=== PATIENT | female | born 1985 | race Caucasian/White ===

== ENCOUNTER 2021-09-07 22:44 | Emergency (ER) | payer SELFPAY ==
[2021-09-07] MEDS ORDERED: NA CHLORIDE 0.9% 1,000 ML ONE (23:48)
[2021-09-07] MEDS ORDERED: HYDROMORPHONE HCL 1 MG/ML INJ ONE (23:49)
[2021-09-07] MEDS ORDERED: ONDANSETRON 4 MG/2 ML VIAL ONE (23:49)
[2021-09-08 00:04] LABS: Urine Blood Negative (Negative); Urine Glucose Negative (Negative); Urine Protein Negative (Negative); Urine Specific Gravity >=1.030 (1.005-1.030)
[2021-09-08] MEDS ORDERED: PROMETHAZINE INJ 25 MG/ML AMP ONE (00:16)
[2021-09-08 00:28] LABS: Absolute Lymphocytes (CBC) 3.7 K/uL (0.7-4.9); Hematocrit 33.5 % (36.0-45.0); Lymphocytes % 39.6 % (15.3-44.8); MPV 7.1 fL (7.6-11.3); RBC Red Blood Cell Count 3.93 M/uL (3.86-4.86)
[2021-09-08 00:35] LABS: ALT/SGPT 19 U/L (12-78); AST/SGOT 11 U/L (15-37); Albumin 2.9 g/dL (3.4-5.0); Alkaline Phosphatase 85 U/L (45-117); BUN Blood Urea Nitrogen 17 mg/dL (7-18); Bicarbonate 25 mmol/L (21-32); Bilirubin Total 0.1 mg/dL (0.2-1.0); Glucose Level 104 mg/dL (74-106); Lipase 154 U/L (73-393); Potassium 3.8 mmol/L (3.5-5.1); Protein, Total 6.6 g/dL (6.4-8.2); Sodium Level 141 mmol/L (136-145)
[2021-09-08 00:46] LABS: Bilirubin Direct < 0.1 mg/dL (0-0.2)
[2021-09-08 00:50] LABS: Blood Morphology Comment NOT SEEN (NOT SEEN); Platelet Estimate ADEQ; White Blood Cell Scan OK (OK)
[2021-09-08 00:56] LABS: Urine Bacteria 20-50 /HPF (<20); Urine RBC <5 /HPF (NONE SEEN)
[2021-09-08 00:57] LABS: Urine Mucus 1+ /HPF (NONE SEEN); Urine Yeast FEW (NONE SEEN)
[2021-09-08] MEDS ORDERED: HYDROMORPHONE HCL 1 MG/ML INJ ONE (01:03)
--- NOTE | 2021-09-08 01:38 | EDPHYS ---
Physician Documentation [facility] Name: Hong Pace Age: 36 yrs Sex: Female : 1985 Arrival Date: 09/07/2021 Time: 22:47 Bed 20 Private MD: ED Physician Ashvin Rasheed HPI: 09/07 23:25 This 36 yrs old Female presents to ER via Ambulatory with complaints of Abdominal cp Cramping, Abdominal Pain, Fever. 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 - Social history:: Smoking status: Patient reports the use of cigarette tobacco products, smokes one-half pack cigarettes per day, Patient/guardian denies using alcohol, street drugs. ROS: 23:30 Constitutional: Negative for body aches, chills, fever, poor PO intake. cp 23:30 Eyes: Negative for injury, pain, redness, and discharge. cp 23:30 ENT: Negative for drainage from ear(s), ear pain, sore throat, difficulty swallowing, difficulty handling secretions. 23:30 Cardiovascular: Negative for chest pain, edema, palpitations. 23:30 Respiratory: Negative for cough, shortness of breath, wheezing. 23:30 Abdomen/GI: Positive for abdominal pain, nausea and vomiting, Negative for diarrhea, constipation, hematemesis, black/tarry stool, rectal bleeding. 23:30 Back: Negative for pain at rest, pain with movement. 23:30 Neuro: Negative for altered mental status, headache, weakness. 23:30 All other systems are negative. Exam: 23:35 Constitutional: The patient appears in no acute distress, alert, awake, non-toxic, well cp developed, well nourished, obese, in obvious pain, uncomfortable. 23:35 Head/Face: Normocephalic, atraumatic. cp 23:35 Eyes: Periorbital structures: appear normal, Conjunctiva: normal, no exudate, no injection, Sclera: no appreciated abnormality, Lids and lashes: appear normal, bilaterally. 23:35 ENT: External ear(s): are unremarkable, Nose: is normal, Mouth: Lips: moist, Oral mucosa: moist, Posterior pharynx: is normal, airway is patent, no erythema, no exudate. 23:35 Chest/axilla: Inspection: normal, Palpation: is normal, no crepitus, no tenderness. 23:35 Cardiovascular: Rate: tachycardic, Rhythm: regular, Edema: is not appreciated, JVD: is not appreciated. 23:35 Respiratory: the patient does not display signs of respiratory distress, Respirations: normal, no use of accessory muscles, no retractions, labored breathing, is not present, Breath sounds: are clear throughout, no decreased breath sounds, no stridor, no wheezing. 23:35 Abdomen/GI: Inspection: abdomen appears normal, Bowel sounds: active, all quadrants, Palpation: soft, in all quadrants, severe abdominal tenderness, in the anterior aspect of left lateral abdomen, left upper quadrant and left lower quadrant, rebound tenderness, is not appreciated, voluntary guarding, is elicited in the anterior aspect of left lateral abdomen, left upper quadrant and left lower quadrant. 23:35 Back: CVA tenderness, is absent. 23:35 Neuro: Orientation: to person, place \T\ time. Mentation: is normal, Motor: moves all fours, strength is normal. Vital Signs: 22:52 BP 130 / 91; Pulse 125; Resp 20; Temp 98.6(TE); Pulse Ox 98% on R/A; Weight 108.86 kg; ld1 Height 5 ft. 4 in. (162.56 cm); Pain 04/09; 09/08 01:30 BP 104 / 52; Pulse 89; Resp 20; Pulse Ox 100% ; vc1 01:50 BP 102 / 50; Pulse 87; Resp 18; Pulse Ox 99% on R/A; vc1 09/07 22:52 Body Mass Index 41.20 (108.86 kg, 162.56 cm) ld1 MDM: 09/07 23:07 Patient medically screened. cp 23:30 Differential diagnosis: bowel obstruction, non-specific abd pain, Ovarian Torsion, cp Pyelonephritis, Ureterolithiasis, urinary tract infection. 09/08 01:35 Data reviewed: vital signs, nurses notes, lab test result(s), radiologic studies, CT cp scan. 01:35 Counseling: I had a detailed discussion with the patient and/or guardian regarding: the cp historical points, exam findings, and any diagnostic results supporting the discharge/admit diagnosis, lab results, radiology results, to return to the emergency department if symptoms worsen or persist or if there are any questions or concerns that arise at home. Response to treatment: the patient's symptoms have markedly improved after treatment, and as a result, I will discharge patient. Special discussion: Based on the patient's Hx, exam, and Dx evaluation, there is no indication for emergent surgery or inpatient Tx. It is understood by the patient/guardian that if the Sx's persist or worsen they need to return immediately for re-evaluation. 09/07 23:17 Order name: Basic Metabolic Panel; Complete Time: 00:59 cp 09/08 01:00 Interpretation: Normal except: CL 110; CA 8.4. cp 09/07 23:17 Order name: CBC with Diff; Complete Time: 00:59 cp 09/08 01:00 Interpretation: Normal except: HGB 11.6; HCT 33.5; MPV 7.1. cp 09/07 23:17 Order name: Hepatic Function; Complete Time: 00:59 cp 09/07 23:17 Order name: Lipase; Complete Time: 00:59 cp 09/07 23:17 Order name: Urine Microscopic Only; Complete Time: 00:59 cp 09/08 01:00 Interpretation: Normal except: UWBC 5-10; UBACT 20-50; SQEPI 10-20. cp 09/08 00:05 Order name: Urine Dipstick-Ancillary; Complete Time: 00:40 EDMS 09/07 23:29 Order name: CT Stone Protocol; Complete Time: 17:17 cp 09/08 00:30 Order name: CBC Smear Scan; Complete Time: 00:59 EDMS 09/08 00:59 Order name: Urine Culture EDCO 09/07 23:17 Order name: IV Saline Lock; Complete Time: 00:23 cp 09/07 23:17 Order name: Labs collected and sent; Complete Time: 00:23 cp 03/10 23:17 Order name: Urine Dipstick-Ancillary (obtain specimen); Complete Time: 00:23 cp 09/07 23:17 Order name: Urine Test (obtain specimen); Complete Time: 00: cp 09/08 01:08 Order name: PO challenge; Complete Time: 01:21 cp Administered Medications: 00:07 Drug: Dilaudid (HYDROmorphone) 1 mg Route: IVP; Site: right antecubital; vc1 00:22 Follow up: Response: No adverse reaction; Pain is unchanged, physician notified; RASS: vc1 Alert and Calm (0) 00:07 Drug: Zofran (Ondansetron) 4 mg Route: IVP; Site: right antecubital; vc1 00:22 Follow up: Response: No adverse reaction; Nausea unchanged vc1 00:22 Drug: NS 0.9% 1000 ml Route: IV; Rate: 1 bolus; Site: right antecubital; vc1 02:00 Follow up: IV Status: Completed infusion; IV infiltrated; IV Intake: 700ml vc1 00:22 Drug: Phenergan (promethazine) 25 mg Route: IVP; Site: right antecubital; vc1 01:09 Follow up: Response: No adverse reaction; Nausea is decreased vc1 01:09 Drug: Dilaudid (HYDROmorphone) 1 mg Route: IVP; Site: right antecubital; vc1 01:50 Follow up: BP 102 / 50; Pulse 87 bpm; Resp 18 bpm; Pulse Ox 99% RA; Response: No vc1 adverse reaction; Marked relief of symptoms; Pain is decreased; RASS: Alert and Calm (0) Disposition Summary: 09/08/21 01:37 Discharge Ordered Location: Home cp Problem: new cp Symptoms: have improved cp Condition: Stable cp Diagnosis - Abdominal pain, unspecified cp Followup: cp - With: Private Physician - When: 2 - 3 days - Reason: Recheck today's complaints Discharge Instructions: - Discharge Summary Sheet cp - Abdominal Pain, Adult cp - Nausea and Vomiting, Adult cp Forms: - Medication Reconciliation Form cp - Thank You Letter cp - Antibiotic Education cp - Prescription Opioid Use cp Prescriptions: - promethazine 25 mg Oral Tablet - take 1 tablet by ORAL route every 6 hours As needed; 20 tablet; Refills: 0, cp Product Selection Permitted - dicyclomine 20 mg Oral Tablet - take 1 tablet by ORAL route 4 times per day; 30 tablet; Refills: 0, Product cp Selection Permitted Addendum: 09/10/2021 19:13 Co-signature as Attending Physician, Ashvin Rasheed MD. [facility] Signatures: Dispatcher [employer] EDCO Cole Abbott PA PA cp Holmes, Maurice, MD MD [id number] Olga Jordan RN RN ld1 Alejandra Soler RN RN vc1 Gracy Limon PA PA sb3
--- NOTE | 2021-09-08 01:38 | ER ---
Nurse's Notes [facility] Name: Hong Pace Age: 36 yrs Sex: Female : 1985 Arrival Date: 09/07/2021 Time: 22:47 Bed 20 Private MD: Diagnosis: Abdominal pain, unspecified Presentation: 09/07 23:00 Chief complaint: Patient states: "I woke up from a nap with my stomach hurting really vc1 bad and I started vomiting.". Coronavirus screen: Vaccine status: Patient reports receiving the 2nd dose of the covid vaccine. Moderna. Ebola Screen: No symptoms or risks identified at this time. Initial Sepsis Screen: Does the patient meet any 2 criteria? HR > 90 bpm. No. Patient's initial sepsis screen is negative. Does the patient have a suspected source of infection? Yes: Acute abdominal pain. Risk Assessment: Do you want to hurt yourself or someone else? Patient reports no desire to harm self or others. Onset of symptoms was September 07, 2021. 23:00 Method Of Arrival: Ambulatory vc1 23:00 Acuity: [place] 3 vc1 Triage Assessment: 22:52 General: Appears in no apparent distress. uncomfortable, Behavior is cooperative, ld1 appropriate for age, anxious. Pain: Complains of pain in right lower quadrant and left lower quadrant Pain does not radiate. Pain currently is 10 out of 10 on a pain scale. Quality of pain is described as throbbing. Neuro: Level of Consciousness is awake, alert, obeys commands, Oriented to person, place, time, situation, Appropriate for age. Respiratory: Airway is patent Respiratory effort is even, unlabored. GI: Abdomen is round non-distended, Reports lower abdominal pain, nausea, vomiting. 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 - Social history:: Smoking status: Patient reports the use of cigarette tobacco products, smokes one-half pack cigarettes per day, Patient/guardian denies using alcohol, street drugs. Screenin:00 Abuse screen: Denies threats or abuse. Nutritional screening: No deficits noted. vc1 Tuberculosis screening: No symptoms or risk factors identified. Fall Risk None identified. Assessment: 23:30 General: Appears in no apparent distress. uncomfortable, ill, Behavior is calm, vc1 cooperative, appropriate for age. Pain: Complains of pain in abdomen Pain does not radiate. Pain currently is 8 out of 10 on a pain scale. Quality of pain is described as sharp, stabbing, Is continuous, Alleviated by medications. 23:30 Neuro: Level of Consciousness is awake, alert, obeys commands, Oriented to person, vc1 place, time, situation, Appropriate for age. Cardiovascular: Patient's skin is warm and dry. Respiratory: Airway is patent Respiratory effort is even, unlabored, Respiratory pattern is regular, symmetrical. GI: Bowel sounds present X 4 quads. Abd is soft Abdomen is tender to palpation. : No signs and/or symptoms were reported regarding the genitourinary system. 09/08 00:30 Reassessment: Patient and/or family updated on plan of care and expected duration. Pain vc1 level reassessed. Patient is alert, oriented x 3, equal unlabored respirations, skin warm/dry/pink. 01:27 Reassessment: No changes from previously documented assessment. Patient and/or family vc1 updated on plan of care and expected duration. Pain level reassessed. Patient is alert, oriented x 3, equal unlabored respirations, skin warm/dry/pink. 01:50 Reassessment: Patient and/or family updated on plan of care and expected duration. Pain vc1 level reassessed. Patient is alert, oriented x 3, equal unlabored respirations, skin warm/dry/pink. Patient states feeling better. Patient states symptoms have improved. Vital Signs: 09/07 22:52 BP 130 / 91; Pulse 125; Resp 20; Temp 98.6(TE); Pulse Ox 98% on R/A; Weight 108.86 kg; ld1 Height 5 ft. 4 in. (162.56 cm); Pain 04/09; 09/08 01:30 BP 104 / 52; Pulse 89; Resp 20; Pulse Ox 100% ; vc1 01:50 BP 102 / 50; Pulse 87; Resp 18; Pulse Ox 99% on R/A; vc1 09/07 22:52 Body Mass Index 41.20 (108.86 kg, 162.56 cm) ld1 ED Course: 09/07 22:47 Patient arrived in ED. [id number] 22:52 Arm band placed on right wrist. ld1 23:00 Bed in low position. Call light in reach. Pulse ox on. NIBP on. vc1 23:03 Cole Abbott PA is PHCP. cp 23:03 Ashvin Rasheed MD is Attending Physician. cp 23:40 Alejandra Soler RN is Primary Nurse. vc1 09/08 00:20 CT Stone Protocol In Process Unspecified. EDMS 00:23 Urine Microscopic Only Sent. vc1 00:23 Basic Metabolic Panel Sent. vc1 00:23 CBC with Diff Sent. vc1 00:23 Hepatic Function Sent. vc1 00:23 Lipase Sent. vc1 01:20 Triage completed. vc1 01:50 No provider procedures requiring assistance completed. IV discontinued, intact, vc1 bleeding controlled, No redness/swelling at site. Pressure dressing applied. Administered Medications: 00:07 Drug: Dilaudid (HYDROmorphone) 1 mg Route: IVP; Site: right antecubital; vc1 00:22 Follow up: Response: No adverse reaction; Pain is unchanged, physician notified; RASS: vc1 Alert and Calm (0) 00:07 Drug: Zofran (Ondansetron) 4 mg Route: IVP; Site: right antecubital; vc1 00:22 Follow up: Response: No adverse reaction; Nausea unchanged vc1 00:22 Drug: NS 0.9% 1000 ml Route: IV; Rate: 1 bolus; Site: right antecubital; vc1 02:00 Follow up: IV Status: Completed infusion; IV infiltrated; IV Intake: 700ml vc1 00:22 Drug: Phenergan (promethazine) 25 mg Route: IVP; Site: right antecubital; vc1 01:09 Follow up: Response: No adverse reaction; Nausea is decreased vc1 01:09 Drug: Dilaudid (HYDROmorphone) 1 mg Route: IVP; Site: right antecubital; vc1 01:50 Follow up: BP 102 / 50; Pulse 87 bpm; Resp 18 bpm; Pulse Ox 99% RA; Response: No vc1 adverse reaction; Marked relief of symptoms; Pain is decreased; RASS: Alert and Calm (0) Intake: 02:00 IV: 700ml; Total: 700ml. vc1 Outcome: 01:37 Discharge ordered by . cp 01:50 Discharged to home ambulatory. vc1 01:50 Condition: good 01:50 Discharge instructions given to patient, Instructed on discharge instructions, follow up and referral plans. medication usage, Demonstrated understanding of instructions, follow-up care, medications, Prescriptions given X 2. 01:51 Patient left the ED. vc1 Signatures: Dispatcher [employer] EDMS Cole Abbott PA PA cp Dibbern, Lauren, RN RN ld1 Keila Cornejo [id number] Alejandra Soler RN RN vc1
[2021-09-08 02:31] VITALS: TEMP 98.6
[2021-09-08 02:32] VITALS: BP 104/52; O2SAT 100
--- NOTE | 2021-09-08 15:10 | RAD REPORT ---
EXAM DESCRIPTION: CT - Stone Protocol - 09/08/2021 6:11 am CLINICAL HISTORY: Left flank pain COMPARISON: None Available. TECHNIQUE: CT of the abdomen and pelvis without IV contrast. Evaluation of the solid organs and vasc ulature is suboptimal due to lack of IV contrast. This exam was performed according to our department al dose-optimization program, which includes automated exposure control, adjustment of the mA and/or kV according to patient size and/or use of iterative reconstruction technique. FINDINGS: Lung Bases: The visualized lung bases are clear. Bones: No destructive bone lesions identified. Abdomen: Liver: The liver has normal size and density. Gallbladder: Prior cholecystectomy. Spleen, Pancreas, and Adrenal Glands: The spleen, pancreas, and adrenal glands are unremarkable. Kidneys: The kidneys have normal size without evidence of hydronephrosis. No obstructing ureteral felipa culi. Punctate bilateral nonobstructing nephrolithiasis. Vasculature: The aorta and IVC have normal caliber and position. Stomach: The stomach and duodenum have normal course. Other: No free intraperitoneal air. No free fluid or lymphadenopathy. Small fat-containing umbili felipa hernia. Pelvis: Bladder: Urinary bladder is unremarkable. Bowel: No dilated loops of large or small bowel. Appendix: Normal appendix. Pelvis: Prior hysterectomy. IMPRESSION: 1. No acute inflammatory or obstructive process identified. 2. Punctate bilateral nonobstructing nephrolithiasis. Electronically signed by: Eulalio Shelton 09/08/2021 12:44 AM [employer] Due to temporary technical issues with the PACS/Fluency reporting system, reports are being signed by the in house radiologists without review as a courtesy to insure prompt reporting. The interpreting radiologist is fully responsible for the content of the report.
== END 2021-09-08 01:51 | disposition home or self-care (01) ==
LOC: ER 22:44
DX: R10.9 Unspecified abdominal pain (principal); R11.2 Nausea with vomiting, unspecified; F17.210 Nicotine dependence, cigarettes, uncomplicated; Z88.5 Allergy status to narcotic agent; Z88.6 Allergy status to analgesic agent
CPT/HCPCS: 36415; 74176; 76377; 80048; 80076; 81003; 81015; 83690; 85025; 87086; 87088; 96361; 96374; 96375; 99284; J1170; J2405; J2550; J7030

== ENCOUNTER 2021-09-19 23:31 | Emergency (ER) | payer SELFPAY ==
[2021-09-20 00:21] LABS: Urine Blood Negative (Negative); Urine Glucose Negative (Negative); Urine Protein Negative (Negative); Urine Specific Gravity >=1.030 (1.005-1.030); Urine pH 5.5 (5.0-7.0)
[2021-09-20] MEDS ORDERED: ONDANSETRON 4 MG/2 ML VIAL ONE ×2 (00:29→01:06)
[2021-09-20] MEDS ORDERED: MORPHINE 4 MG/ML SYR ONE (00:29)
[2021-09-20] MEDS ORDERED: NA CHLORIDE 0.9% 1,000 ML ONE ×2 (00:29→01:40)
[2021-09-20 00:36] LABS: Absolute Lymphocytes (CBC) 2.8 K/uL (0.7-4.9); Hematocrit 39.4 % (36.0-45.0); Lymphocytes % 34.3 % (15.3-44.8); RBC Red Blood Cell Count 4.52 M/uL (3.86-4.86)
[2021-09-20 00:43] LABS: Calcium Oxalate Crystals- Ur FEW (NONE SEEN); Urine Bacteria >50 /HPF (<20); Urine RBC <5 /HPF (NONE SEEN); Urine Urothelial Cells <5 /HPF (NONE SEEN)
[2021-09-20 00:44] LABS: Albumin 3.3 g/dL (3.4-5.0); Bilirubin Total 0.2 mg/dL (0.2-1.0); Potassium 3.8 mmol/L (3.5-5.1); Protein, Total 7.4 g/dL (6.4-8.2)
[2021-09-20] MEDS ORDERED: HYDROMORPHONE HCL 1 MG/ML INJ ONE (01:06)
[2021-09-20] MEDS ORDERED: PROMETHAZINE INJ 25 MG/ML AMP ONE (01:40)
[2021-09-20] MEDS ORDERED: HYDROMORPHONE HCL 0.5 MG/0.5 ML INJ ONE (01:40)
[2021-09-20] MEDS ORDERED: NA CHLORIDE 0.9% 50 ML ONE (01:41)
--- NOTE | 2021-09-20 02:02 | EDPHYS ---
Physician Documentation [facility] Name: Hong Pace Age: 36 yrs Sex: Female : 1985 Arrival Date: 09/19/2021 Time: 23:34 Bed 18 Private MD: JOAQUIN Physician Cole Disla HPI: 09/20 00:23 This 36 yrs old Female presents to ER via Ambulatory with complaints of wayne Abdominal Pain, Vomiting. 00:23 The patient presents to the emergency department with nausea, vomiting, that is wayne intermittent. Onset: The symptoms/episode began/occurred just prior to arrival. Possible causes: unknown. The symptoms are aggravated by nothing. The symptoms are alleviated by nothing. Associated signs and symptoms: The patient has no apparent associated signs or symptoms, Pertinent positives: abdominal pain. Severity of symptoms: At their worst the symptoms were moderate in the emergency department the symptoms are unchanged. The patient has not experienced similar symptoms in the past. 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 - Social history:: Smoking status: Patient reports the use of cigarette tobacco products, "3 a day". ROS: 09/20 00:24 Constitutional: Negative for fever, chills, and weight loss, Eyes: Negative for injury, wayne pain, redness, and discharge, ENT: Negative for injury, pain, and discharge, Neck: Negative for injury, pain, and swelling, Respiratory: Negative for shortness of breath, cough, wheezing, and pleuritic chest pain, Back: Negative for injury and pain, : Negative for injury, bleeding, discharge, and swelling, MS/Extremity: Negative for injury and deformity, Skin: Negative for injury, rash, and discoloration, Neuro: Negative for headache, weakness, numbness, tingling, and seizure, Psych: Negative for depression, anxiety, suicide ideation, homicidal ideation, and hallucinations, Allergy/Immunology: Negative for hives, rash, and allergies, Endocrine: Negative for neck swelling, polydipsia, polyuria, polyphagia, and marked weight changes, Hematologic/Lymphatic: Negative for swollen nodes, abnormal bleeding, and unusual bruising. Cardiovascular: Positive for palpitations. Abdomen/GI: Positive for abdominal pain, nausea, vomiting, of the left lower quadrant. Exam: 00:24 Constitutional: This is a well developed, well nourished patient who is awake, alert, wayne and in no acute distress. Head/Face: Normocephalic, atraumatic. Eyes: Pupils equal round and reactive to light, extra-ocular motions intact. Lids and lashes normal. Conjunctiva and sclera are non-icteric and not injected. Cornea within normal limits. Periorbital areas with no swelling, redness, or edema. ENT: Nares patent. No nasal discharge, no septal abnormalities noted. Tympanic membranes are normal and external auditory canals are clear. Oropharynx with no redness, swelling, or masses, exudates, or evidence of obstruction, uvula midline. Mucous membranes moist. Neck: Trachea midline, no thyromegaly or masses palpated, and no cervical lymphadenopathy. Supple, full range of motion without nuchal rigidity, or vertebral point tenderness. No Meningismus. Chest/axilla: Normal chest wall appearance and motion. Nontender with no deformity. No lesions are appreciated. Cardiovascular: Regular rate and rhythm with a normal S1 and S2. No gallops, murmurs, or rubs. Normal PMI, no JVD. No pulse deficits. Respiratory: Lungs have equal breath sounds bilaterally, clear to auscultation and percussion. No rales, rhonchi or wheezes noted. No increased work of breathing, no retractions or nasal flaring. Back: No spinal tenderness. No costovertebral tenderness. Full range of motion. Skin: Warm, dry with normal turgor. Normal color with no rashes, no lesions, and no evidence of cellulitis. MS/ Extremity: Pulses equal, no cyanosis. Neurovascular intact. Full, normal range of motion. Neuro: Awake and alert, GCS 15, oriented to person, place, time, and situation. Cranial nerves II-XII grossly intact. Motor strength 5/5 in all extremities. Sensory grossly intact. Cerebellar exam normal. Normal gait. Psych: Awake, alert, with orientation to person, place and time. Behavior, mood, and affect are within normal limits. 00:24 Abdomen/GI: Inspection: distension, that is mild, Bowel sounds: normal, Palpation: mild abdominal tenderness, in the left lower quadrant, Liver: is firm, Hernia: not appreciated. Vital Signs: 09/19 23:39 Pulse 110; Resp 18; Temp 98.0; Pulse Ox 97% on R/A; Weight 108.86 kg; Height 5 ft. 4 tw5 in. (162.56 cm); Pain 10/10; 23:39 Body Mass Index 41.20 (108.86 kg, 162.56 cm) tw5 MDM: 23:42 Patient medically screened. [facility] 09/20 00:26 Differential diagnosis: nephrolithiasis, pyelonephritis, Nonspecific abd pain, wayne pancreatitis, diverticulitis, gastroenteritis. Data reviewed: vital signs, nurses notes, lab test result(s), EKG, radiologic studies, CT scan. Data interpreted: ekg monitor: rate is 110 beats/min, rhythm is regular, Pulse oximetry:. Test interpretation: by ED physician or midlevel provider: ECG, plain radiologic studies. Counseling: I had a detailed discussion with the patient and/or guardian regarding: the historical points, exam findings, and any diagnostic results supporting the discharge/admit diagnosis, lab results, radiology results. 09/19 23:39 Order name: CBC with Diff; Complete Time: 00:56 tw5 09/19 23:39 Order name: CMP; Complete Time: 00:56 tw 09/19 23:39 Order name: Lipase; Complete Time: 00:56 tw5 09/19 23:39 Order name: Urine Microscopic Only; Complete Time: 00:56 tw5 09/20 00:20 Order name: Urine Dipstick-Ancillary; Complete Time: 00:37 EDMA 09/20 00:45 Order name: Urine Culture [facility] 09/20 00:23 Order name: CT Abd/Pelvis - IV Contrast Only [facility] 09/19 23:39 Order name: IV Saline Lock; Complete Time: 00:25 tw5 09/19 23:39 Order name: Labs collected and sent; Complete Time: 00:25 tw 09/19 23:39 Order name: Urine Dipstick-Ancillary (obtain specimen); Complete Time: 00:25 tw5 09/19 23:39 Order name: Urine Test (obtain specimen); Complete Time: 00:26 tw5 Administered Medications: 00:33 Drug: NS 0.9% 1000 ml Route: IV; Rate: 1 bolus; Site: right forearm; kd3 03:01 Follow up: Rate change 1000 ml; IV Status: Completed infusion kd3 00:33 Drug: morphine 4 mg Route: IVP; Site: right forearm; kd3 03:01 Follow up: Response: No adverse reaction kd3 03:01 Follow up: Response: No adverse reaction kd3 00:33 Drug: Zofran (Ondansetron) 4 mg Route: IVP; Site: right forearm; kd3 03:00 Follow up: Response: No adverse reaction kd3 01:07 Drug: Dilaudid (HYDROmorphone) 1 mg Route: IVP; Site: right forearm; ke1 03:00 Follow up: Response: No adverse reaction kd3 01:07 Drug: Zofran (Ondansetron) 4 mg Route: IVP; Site: right forearm; ke1 03:00 Follow up: Response: No adverse reaction kd3 01:49 Drug: NS 0.9% 1000 ml Route: IV; Rate: 1 bolus; Site: right antecubital; kd3 03:00 Follow up: Rate change 1000 ml; IV Status: Completed infusion kd3 01:50 Drug: Dilaudid (HYDROmorphone) 1 mg Route: IVP; Site: right antecubital; kd3 03:00 Follow up: Response: No adverse reaction; Pain is decreased kd3 01:50 Drug: Phenergan (promethazine) 12.5 mg Route: IVP; Site: right antecubital; kd3 03:00 Follow up: Response: No adverse reaction kd3 02:32 Drug: Flomax (tamsulosin) 0.4 mg Route: PO; kd3 02:59 Follow up: Response: No adverse reaction kd3 03:00 Follow up: Response: No adverse reaction kd3 Disposition Summary: 09/20/21 02:01 Discharge Ordered Location: Home wayne Problem: new wayne Symptoms: have improved wayne Condition: Stable wayne Diagnosis - Abdominal pain, unspecified wayne - Abdominal tenderness wayne - UTI/ Urinary tract infection, site not specified wayne - Vomiting wayne Followup: wayne - With: Private Physician - When: 2 - 3 days - Reason: Recheck today's complaints, Continuance of care, Re-evaluation by your physician Discharge Instructions: - Discharge Summary Sheet wayne - Abdominal Pain, Adult wayne - Dysuria wayne - Flank Pain, Adult wayne - Urinary Tract Infection, Adult wayne - Urinary Tract Infection, Adult, [id number] wayne - Abdominal Pain, Adult, [id number] wayne - Vomiting, Adult [facility] Forms: - Medication Reconciliation Form [facility] - Thank You Letter [facility] - Antibiotic Education [facility] - Prescription Opioid Use [facility] Prescriptions: - Zofran 4 mg Oral Tablet - take 1 tablet by ORAL route every 12 hours As needed; 20 tablet; Refills: 0, [facility] Product Selection Permitted - Cipro 500 mg Oral Tablet - take 1 tablet by ORAL route every 12 hours for 7 days; 14 tablet; Refills: 0, [facility] Product Selection Permitted - Tylenol-Codeine #3 300 mg-30 mg Oral - take 2 tablet by ORAL route every 6 hours; 24 tablet; Refills: 0, Product [facility] Selection Permitted - Flomax 0.4 mg Oral capsule - take 1 capsule by ORAL route At bedtime; 20 capsule; Refills: 0, Product jr8 Selection Permitted Signatures: Dispatcher [employer] Cole Juan MD MD cha Wood, Tiffany tw5 Oralia Varma RN RN kd3 Joni Ritchie RN RN ke1 Gracy Limon PA PA sb3
--- NOTE | 2021-09-20 02:02 | ER ---
Nurse's Notes [facility] Name: Hong Pace Age: 36 yrs Sex: Female : 1985 Arrival Date: 09/19/2021 Time: 23:34 Bed 18 Private MD: Diagnosis: Abdominal pain, unspecified;Abdominal tenderness;UTI/ Urinary tract infection, site not specified;Vomiting Presentation: 09/19 23:39 Chief complaint: Patient states: "I was asleep and woke up with this pain its low in my tw5 abdomen and goes into my back and shots. It makes me throw up, makes me sick to my stomach, makes me feel like I am going to pass out.". Coronavirus screen: Vaccine status: Patient reports receiving the 2nd dose of the covid vaccine. Outlisten. Ebola Screen: Patient negative for fever greater than or equal to 101.5 degrees Fahrenheit, and additional compatible Ebola Virus Disease symptoms Patient denies exposure to infectious person. Patient denies travel to an Ebola-affected area in the 21 days before illness onset. Initial Sepsis Screen: Does the patient meet any 2 criteria? HR > 90 bpm. Does the patient have a suspected source of infection? Yes: Acute abdominal pain. Risk Assessment: Do you want to hurt yourself or someone else? Patient reports no desire to harm self or others. Onset of symptoms was September 19, 2021 at 21:30. 23:39 Method Of Arrival: Ambulatory tw5 23:39 Acuity: [place] 3 tw5 Triage Assessment: 23:46 General: Appears uncomfortable, ill, Behavior is cooperative, appropriate for age, tw5 anxious. Pain: Complains of pain in left lower quadrant Pain radiates to low back area Pain currently is 10 out of 10 on a pain scale. 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 - Social history:: Smoking status: Patient reports the use of cigarette tobacco products, "3 a day". Screenin/23 02:56 Abuse screen: Denies threats or abuse. Denies injuries from another. Nutritional kd3 screening: No deficits noted. Tuberculosis screening: No symptoms or risk factors identified. Fall Risk IV access (20 points). Assessment: 09/19 23:39 GI: Pt is actively vomiting bile. tw5 09/20 02:13 Reassessment: Patient and/or family updated on plan of care and expected duration. Pain kd3 level reassessed. Patient is alert, oriented x 3, equal unlabored respirations, skin warm/dry/pink. Patient states feeling better. Patient states symptoms have improved. General: Appears in no apparent distress. Behavior is calm, cooperative, appropriate for age. 02:56 GI: Bowel sounds present X 4 quads. Abd is soft and non tender X 4 quads. kd3 Vital Signs: 09/19 23:39 Pulse 110; Resp 18; Temp 98.0; Pulse Ox 97% on R/A; Weight 108.86 kg; Height 5 ft. 4 tw5 in. (162.56 cm); Pain 10/10; 23:39 Body Mass Index 41.20 (108.86 kg, 162.56 cm) tw5 ED Course: 23:34 Patient arrived in ED. ja2 23:39 Urine collected: clean catch specimen. tw5 23:42 Cole Disla MD is Attending Physician. [facility] 23:46 Triage completed. tw5 23:46 Arm band placed on left wrist. tw5 23:51 Oralia Varma RN is Primary Nurse. kd3 09/20 00:14 Initial lab(s) drawn, by nd, sent to lab. Inserted saline lock: 20 gauge in right tw5 forearm, using aseptic technique. 01:26 CT Abd/Pelvis - IV Contrast Only In Process Unspecified. EDMS 02:56 No provider procedures requiring assistance completed. IV discontinued, intact, kd3 bleeding controlled, No redness/swelling at site. Pressure dressing applied. 02:57 Bed in low position. Side rails up X2. kd3 Administered Medications: 00:33 Drug: NS 0.9% 1000 ml Route: IV; Rate: 1 bolus; Site: right forearm; kd3 03:01 Follow up: Rate change 1000 ml; IV Status: Completed infusion kd3 00:33 Drug: morphine 4 mg Route: IVP; Site: right forearm; kd3 03:01 Follow up: Response: No adverse reaction kd3 03:01 Follow up: Response: No adverse reaction kd3 00:33 Drug: Zofran (Ondansetron) 4 mg Route: IVP; Site: right forearm; kd3 03:00 Follow up: Response: No adverse reaction kd3 01:07 Drug: Dilaudid (HYDROmorphone) 1 mg Route: IVP; Site: right forearm; ke1 03:00 Follow up: Response: No adverse reaction kd3 01:07 Drug: Zofran (Ondansetron) 4 mg Route: IVP; Site: right forearm; ke1 03:00 Follow up: Response: No adverse reaction kd3 01:49 Drug: NS 0.9% 1000 ml Route: IV; Rate: 1 bolus; Site: right antecubital; kd3 03:00 Follow up: Rate change 1000 ml; IV Status: Completed infusion kd3 01:50 Drug: Dilaudid (HYDROmorphone) 1 mg Route: IVP; Site: right antecubital; kd3 03:00 Follow up: Response: No adverse reaction; Pain is decreased kd3 01:50 Drug: Phenergan (promethazine) 12.5 mg Route: IVP; Site: right antecubital; kd3 03:00 Follow up: Response: No adverse reaction kd3 02:32 Drug: Flomax (tamsulosin) 0.4 mg Route: PO; kd3 02:59 Follow up: Response: No adverse reaction kd3 03:00 Follow up: Response: No adverse reaction kd3 Outcome: 02:01 Discharge ordered by MD. black 02:56 Discharged to home ambulatory. kd3 02:56 Condition: stable 02:56 Discharge instructions given to patient, Instructed on discharge instructions, follow up and referral plans. Demonstrated understanding of instructions, follow-up care, Prescriptions given X 1. 02:57 Patient left the ED. tw5 Signatures: Dispatcher [employer] EDMS Cole Disla MD MD cha Alexander, Jessica ja2 Wood, Tiffany tw5 Oraila Varma RN RN kd3 Ebrottie, Kouassi, RN RN ke1
[2021-09-20] MEDS ORDERED: TAMSULOSIN 0.4 MG SR CAP ONE (02:35)
[2021-09-20 03:59] VITALS: TEMP 98; O2SAT 97
--- NOTE | 2021-09-20 12:59 | RAD REPORT ---
EXAM DESCRIPTION: Abdomen Pelvis W Contrast CLINICAL HISTORY: 36 years Female ABD PAIN TECHNIQUE: CT of the abdomen and pelvis using intravenous contrast. All CT scans at this facility us e dose modulation, iterative reconstruction, and/or weight based dosing when appropriate to reduce ra diation dose to as low as reasonably achievable. COMPARISON: 09/08/2021 FINDINGS: Lower chest: Lung bases are clear.Abdomen/Pelvis: Liver: No focal lesion.Gallbladder: Stat us post cholecystectomy.Pancreas: Within normal limits.Spleen: Within normal limits.Kidney: Punctate 1 mm nonobstructing stones in both kidneys. No focal lesion.Adrenal glands: Within normal limits.Vasc ular structures: Unremarkable.Bowel: Postsurgical changes in the stomach. No bowel distention.Appendi x: Not seen.Peritoneum: No free fluid or free air.Lymph Nodes: No lymphadenopathy.Reproductive: Statu s post hysterectomy.Urinary bladder: Unremarkable.Osseous structures: Unchanged sclerosis of the left iliac wing.Soft tissues: Fat-containing small right supraumbilical and periumbilical hernias. IMPRESSION: 1. Punctate 1 mm nonobstructing stones in both kidneys. 2. Additional chronic findings a s described above. Electronically signed by: Ritchie Rodrigues MD 09/20/2021 1:53 AM CDT Due to temporary technical issues with the PACS/Fluency reporting system, reports are being signed by the in house radiologist without review as a courtesy to ensure prompt reporting. The interpreting r adiologist is fully responsible for the content of the report.
== END 2021-09-20 02:57 | disposition home or self-care (01) ==
LOC: ER 23:31
DX: N39.0 Urinary tract infection, site not specified (principal); R11.10 Vomiting, unspecified; F17.210 Nicotine dependence, cigarettes, uncomplicated
CPT/HCPCS: 36415; 74177; 80053; 81003; 81015; 83690; 85025; 87086; 87088; 99284; J1170; J2405; J2550; J7030; Q9967

== ENCOUNTER 2021-11-07 22:23 | Emergency (ER) | payer SELFPAY ==
[2021-11-07] MEDS ORDERED: MORPHINE 4 MG/ML SYR ONE (22:54)
[2021-11-07] MEDS ORDERED: ONDANSETRON 4 MG/2 ML VIAL ONE (22:54)
[2021-11-07 22:59] LABS: Urine Blood Negative (Negative); Urine Glucose Negative (Negative); Urine Protein Trace (Negative); Urine Specific Gravity >=1.030 (1.005-1.030); Urine pH 6.5 (5.0-7.0)
[2021-11-07 23:47] LABS: Absolute Lymphocytes (CBC) 2.1 K/uL (0.7-4.9); Hematocrit 36.1 % (36.0-45.0); Lymphocytes % 30.7 % (15.3-44.8); MPV 7.4 fL (7.6-11.3); RBC Red Blood Cell Count 4.23 M/uL (3.86-4.86)
[2021-11-07 23:56] LABS: Albumin 3.2 g/dL (3.4-5.0); Bilirubin Total 0.1 mg/dL (0.2-1.0); Potassium 3.8 mmol/L (3.5-5.1); Protein, Total 6.8 g/dL (6.4-8.2)
[2021-11-08] MEDS ORDERED: HYDROMORPHONE HCL 0.5 MG/0.5 ML INJ ONE (00:22)
[2021-11-08] MEDS ORDERED: PROMETHAZINE INJ 25 MG/ML AMP ONE (00:22)
[2021-11-08] MEDS ORDERED: MEPERIDINE HCL 50 MG/ML ONE (00:50)
--- NOTE | 2021-11-08 02:01 | EDPHYS ---
Physician Documentation [facility] Name: Hong Pace Age: 36 yrs Sex: Female : 1985 Arrival Date: 11/07/2021 Time: 22:26 Bed 7 Private MD: ED Physician Darwin Haque HPI: 11/07 23:16 This 36 yrs old Female presents to ER via Ambulatory with complaints of Flank Pain. jr8 23:16 The patient complains of pain in the left flank. The pain radiates to the abdomen. jr8 Onset: The symptoms/episode began/occurred acutely, today. Modifying factors: The symptoms are alleviated by nothing. the symptoms are aggravated by movement. Associated signs and symptoms: Pertinent positives: vomiting. Severity of pain: At its worst the pain was moderate in the emergency department the pain is unchanged. It is unknown whether or not the patient has had similar symptoms in the past. The patient has not recently seen a physician. History of renal stones in past. Started with acute pain tonight when laying down trying to get her child to bed. 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 - Social history:: Smoking status: Patient reports the use of cigarette tobacco products, denies chronic smoking, but will smoke occasionally. ROS: 23:16 Eyes: Negative for injury, pain, redness, and discharge, ENT: Negative for injury, jr8 pain, and discharge, Neck: Negative for injury, pain, and swelling, Cardiovascular: Negative for chest pain, palpitations, and edema, Respiratory: Negative for shortness of breath, cough, wheezing, and pleuritic chest pain, MS/Extremity: Negative for injury and deformity, Skin: Negative for injury, rash, and discoloration, Neuro: Negative for headache, weakness, numbness, tingling, and seizure. 23:16 Abdomen/GI: Positive for abdominal pain, nausea and vomiting, Negative for diarrhea. 23:16 Back: Positive for flank pain, on the left. Exam: 23:16 Cardiovascular: Regular rate and rhythm with a normal S1 and S2. No gallops, murmurs, jr8 or rubs. Normal PMI, no JVD. No pulse deficits. Respiratory: Lungs have equal breath sounds bilaterally, clear to auscultation and percussion. No rales, rhonchi or wheezes noted. No increased work of breathing, no retractions or nasal flaring. Skin: Warm, dry with normal turgor. Normal color with no rashes, no lesions, and no evidence of cellulitis. MS/ Extremity: Pulses equal, no cyanosis. Neurovascular intact. Full, normal range of motion. Neuro: Awake and alert, GCS 15, oriented to person, place, time, and situation. Motor strength 5/5 in all extremities. Sensory grossly intact. 23:16 Constitutional: The patient appears alert, awake, in obvious pain. 23:16 Abdomen/GI: Inspection: obese Bowel sounds: active, all quadrants, Palpation: soft, in all quadrants, moderate abdominal tenderness, in the left lower quadrant, mass, is not appreciated, rebound tenderness, is not appreciated, voluntary guarding, is not appreciated, involuntary guarding, is not appreciated, Indicators: McBurney's point is not tender, Pelletier's sign is negative, Rovsing's sign is negative. 23:16 Back: pain, that is mild, of the left flank, ROM is normal, normal spinal alignment noted, CVA tenderness, that is mild, is noted on the left. Vital Signs: 22:43 BP 131 / 101; Pulse 123; Resp 18; Pulse Ox 98% on R/A; Weight 104.33 kg (R); Height 5 lp1 ft. 4 in. (162.56 cm); Pain 10/10; 22:50 BP 137 / 97; Pulse 103; Resp 20; Temp 98.8(O); Pulse Ox 98% on R/A; Pain 10/10; al4 23:00 BP 124 / 91; Pulse 93; Resp 18; Pulse Ox 100% ; Pain 10/10; al4 23:10 BP 131 / 87; Pulse 90; Resp 18 S; Pulse Ox 100% on R/A; al4 0511 00:55 BP 128 / 81; Pulse 88; Resp 16; Pulse Ox 99% ; Pain 8/10; bb 01:21 BP 117 / 81; Pulse 90; Resp 20 S; Pulse Ox 98% on R/A; Pain 6/10; al4 01:35 BP 117 / 95; Pulse 87; Resp 18 S; Pulse Ox 99% on R/A; al4 11/07 22:43 Body Mass Index 39.48 (104.33 kg, 162.56 cm) lp1 MDM: 11/07 22:34 Patient medically screened. 11/08 00:00 Data reviewed: vital signs, nurses notes, lab test result(s), radiologic studies, CT jr8 scan. Data interpreted: Pulse oximetry: on room air is 100 %. Interpretation: normal. Counseling: I had a detailed discussion with the patient and/or guardian regarding: the historical points, exam findings, and any diagnostic results supporting the discharge/admit diagnosis, lab results, radiology results. ED course: Labs stable. No acute intraabdominal findings on CT. This was discussed with patient. Giving another round of pain meds and nausea meds at this time for continued pain . 01:42 Differential diagnosis: nephrolithiasis, pyelonephritis, UTI, diverticulitis, rn pancreatitis, endometriosis. Response to treatment: the patient's symptoms have markedly improved after treatment. 01:43 ED course: Pt suddenly wants to leave, doesn't want to wait for results, has had rn multiple narcotic pain medications, told her she cannot drive herself, needs ride, and we need to see her get into car.. 02:00 ED course: No acute findings on CT. Patient's ride is here, wants to go home. Will dc rn home with return precautions. Feels better. Stable vitals.. 11/07 22:44 Order name: CBC with Diff; Complete Time: 23:59 [facility] 11/07 22:44 Order name: CMP; Complete Time: 23:59 [facility] 11/07 22:48 Order name: CT Stone Protocol [facility] 11/07 22:59 Order name: Urine Dipstick-Ancillary; Complete Time: 23:18 EDMS 11/08 00:19 Order name: CT Abd/Pelvis - IV Contrast Only [facility] 11/07 22:44 Order name: IV Saline Lock; Complete Time: 23:08 8 11/07 22:44 Order name: Labs collected and sent; Complete Time: 23:08 8 11/07 22:44 Order name: Urine Dipstick-Ancillary (obtain specimen); Complete Time: 22:58 8 11/07 22:44 Order name: Urine Test (obtain specimen); Complete Time: 22:58 Administered Medications: 11/07 23:13 Drug: Zofran (Ondansetron) 4 mg Route: IVP; Site: right antecubital; al4 11/08 00:00 Follow up: Response: No adverse reaction; No change in condition al4 11/07 23:15 Drug: morphine 4 mg Route: IVP; Site: right antecubital; al4 11/08 00:00 Follow up: Response: No adverse reaction; No change in condition al4 00:25 Drug: Phenergan (promethazine) 12.5 mg Route: IVP; Site: right antecubital; bb 00:44 Follow up: Response: Nausea is decreased bb 00:26 Drug: Dilaudid (HYDROmorphone) 0.5 mg {Note: RASS 0.} Route: IVP; Site: right bb antecubital; 00:44 Follow up: Response: No adverse reaction; Pain is unchanged, physician notified; RASS: bb Alert and Calm (0) 00:56 Drug: Demerol (meperidine) 50 mg {Note: RASS 0.} Route: IVP; Site: right antecubital; bb 02:03 Follow up: Response: No adverse reaction; Pain is decreased; RASS: Alert and Calm (0) al4 Disposition: 03:51 Co-signature as Attending Physician, Darwin Haque MD. rn Disposition Summary: 11/08/21 02:01 Discharge Ordered Location: Home rn Problem: new rn Symptoms: have improved rn Condition: Stable rn Diagnosis - Abdominal pain, unspecified rn Followup: rn - With: Private Physician - When: As needed - Reason: Recheck today's complaints, Re-evaluation by your physician Discharge Instructions: - Discharge Summary Sheet rn - Abdominal Pain, Adult rn - Pain Without a Known Cause rn Forms: - Medication Reconciliation Form rn - Thank You Letter rn - Antibiotic rn transition - Prescription Opioid Use rn Signatures: Dispatcher [employer] Ofelia Kay RN RN bb Darwin Haque MD MD rn Shepherd, AFRICA Gonzalez RN lp1 Ernesto Evans PA PA jr8 Darian Gonzalez
--- NOTE | 2021-11-08 02:01 | ER ---
Nurse's Notes [facility] Name: Hong Pace Age: 36 yrs Sex: Female : 1985 Arrival Date: 11/07/2021 Time: 22:26 Bed 7 Private MD: Diagnosis: Abdominal pain, unspecified Presentation: 11/07 22:43 Chief complaint: Patient states: Sudden onset LLQ abdominal pain about 1.5 hr ago, lp1 vomiting during triage; Hx of kidney stones. Coronavirus screen: At this time, the client does not indicate any symptoms associated with coronavirus-19. Ebola Screen: No symptoms or risks identified at this time. Initial Sepsis Screen: Does the patient meet any 2 criteria? HR > 90 bpm. Does the patient have a suspected source of infection? No. Patient's initial sepsis screen is negative. Risk Assessment: Do you want to hurt yourself or someone else? Patient reports no desire to harm self or others. Onset of symptoms was November 07, 2021. 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 - Social history:: Smoking status: Patient reports the use of cigarette tobacco products, denies chronic smoking, but will smoke occasionally. Screenin:50 Abuse screen: Denies threats or abuse. Nutritional screening: No deficits noted. al4 Tuberculosis screening: No symptoms or risk factors identified. Fall Risk No fall in past 12 months (0 pts). No IV (0 pts). Ambulatory Aid- None/Bed Rest/Nurse Assist (0 pts). Gait- Normal/Bed Rest/Wheelchair (0 pts) Mental Status- Oriented to own ability (0 pts). Total Puentes Fall Scale indicates No Risk (0-24 pts). Assessment: 22:50 General: Appears uncomfortable, Behavior is calm, cooperative. Pain: Complains of pain al4 in left lower quadrant Pain currently is 10 out of 10 on a pain scale. Noted to be moaning. Neuro: Level of Consciousness is awake, alert, obeys commands, Oriented to person, place, time, situation, Gait is steady. Cardiovascular: Capillary refill < 3 seconds Patient's skin is warm and dry. Respiratory: Airway is patent Respiratory effort is even, unlabored, Respiratory pattern is regular, symmetrical. GI: Abdomen is round Abdomen is tender to palpation in left lower quadrant Reports nausea, vomiting. : No signs and/or symptoms were reported regarding the genitourinary system. EENT: No signs and/or symptoms were reported regarding the EENT system. Derm: Skin is intact, Skin is dry, Skin is normal, Skin temperature is warm. Musculoskeletal: Circulation, motion, and sensation intact. 11/08 00:20 Reassessment: patient c/o pain and nausea. provider notified. al4 01:20 Reassessment: Patient is alert, oriented x 3, equal unlabored respirations, skin al4 warm/dry/pink. Patient states feeling better. 01:30 Reassessment: patient notified ED RN of wanting to be discharged and called with the al4 results tomorrow. RN educated patient that patient could not drive home, and patient understands saying her will come pick her up. 02:01 Reassessment: Patient appears in no apparent distress at this time. Patient is alert, al4 oriented x 3, equal unlabored respirations, skin warm/dry/pink. Patient states feeling better. 02:11 Reassessment: This RN walked patient out to family's car. Lashay, patients Aunt, will al4 be giving patient a ride home. Vital Signs: 11/07 22:43 BP 131 / 101; Pulse 123; Resp 18; Pulse Ox 98% on R/A; Weight 104.33 kg (R); Height 5 lp1 ft. 4 in. (162.56 cm); Pain 10/; 22:50 BP 137 / 97; Pulse 103; Resp 20; Temp 98.8(O); Pulse Ox 98% on R/A; Pain 10; al4 23:00 BP 124 / 91; Pulse 93; Resp 18; Pulse Ox 100% ; Pain 10/10; al4 23:10 BP 131 / 87; Pulse 90; Resp 18 S; Pulse Ox 100% on R/A; al4 11/08 00:55 BP 128 / 81; Pulse 88; Resp 16; Pulse Ox 99% ; Pain 8/10; bb 01:21 BP 117 / 81; Pulse 90; Resp 20 S; Pulse Ox 98% on R/A; Pain 6/10; al4 01:35 BP 117 / 95; Pulse 87; Resp 18 S; Pulse Ox 99% on R/A; al4 11/07 22:43 Body Mass Index 39.48 (104.33 kg, 162.56 cm) lp1 ED Course: 11/07 22:26 Patient arrived in ED. bp1 22:33 Ernesto Evans PA is PHCP. jr8 22:33 Darwin Haque MD is Attending Physician. jr8 22:43 Missed attempt(s): 20 gauge in right antecubital area. lp1 22:44 Triage completed. lp1 22:44 Arm band placed on. lp1 22:50 Patient has correct armband on for positive identification. Bed in low position. Call al4 light in reach. 22:54 Darian Gonzalez is Primary Nurse. al4 23:08 Inserted saline lock: 24 gauge in right upper arm, using aseptic technique. Blood ds4 collected. 23:27 CT Stone Protocol In Process Unspecified. EDMS 11/08 01:23 CT Abd/Pelvis - IV Contrast Only In Process Unspecified. EDMS 02:05 No provider procedures requiring assistance completed. IV discontinued, intact, al4 bleeding controlled, No redness/swelling at site. Pressure dressing applied. Administered Medications: 11/07 23:13 Drug: Zofran (Ondansetron) 4 mg Route: IVP; Site: right antecubital; al4 11/08 00:00 Follow up: Response: No adverse reaction; No change in condition al4 11/07 23:15 Drug: morphine 4 mg Route: IVP; Site: right antecubital; al4 11/08 00:00 Follow up: Response: No adverse reaction; No change in condition al4 00:25 Drug: Phenergan (promethazine) 12.5 mg Route: IVP; Site: right antecubital; bb 00:44 Follow up: Response: Nausea is decreased bb 00:26 Drug: Dilaudid (HYDROmorphone) 0.5 mg {Note: RASS 0.} Route: IVP; Site: right bb antecubital; 00:44 Follow up: Response: No adverse reaction; Pain is unchanged, physician notified; RASS: bb Alert and Calm (0) 00:56 Drug: Demerol (meperidine) 50 mg {Note: RASS 0.} Route: IVP; Site: right antecubital; bb 02:03 Follow up: Response: No adverse reaction; Pain is decreased; RASS: Alert and Calm (0) al4 Outcome: 02:01 Discharge ordered by . rn 02:05 Discharged to home ambulatory, with friend. al4 02:05 Condition: good 02:05 Discharge instructions given to patient, Instructed on discharge instructions, follow up and referral plans. Demonstrated understanding of instructions, follow-up care. 02:11 Patient left the ED. al4 Signatures: Dispatcher [employer] EDOfelia Ying RN RN Darwin Santana MD MD rn Pena, Laura, RN RN lp1 Ernesto Evans PA PA jr8 Gallito Kaminski ds4 Yoselyn Hoffmann Alexis al4 Corrections: (The following items were deleted from the chart) 01:23 00:30 Reassessment: patient c/o pain and nausea. provider notified. al4 al4
[2021-11-08 03:27] VITALS: TEMP 98.8
[2021-11-08 03:34] VITALS: BP 117/95; O2SAT 99
--- NOTE | 2021-11-08 11:55 | RAD REPORT ---
EXAM DESCRIPTION: CT Stone Protocol CLINICAL HISTORY: 36 years Female Flank pain, kidney stone suspected TECHNIQUE: Contiguous axial images obtained through the abdomen and pelvis without IV contrast. Kedar nal and sagittal reformatted images provided. This CT exam was performed according to our departmental dose-optimization program, which includes on e or more of the following dose reduction techniques: automated exposure control, adjustment of the m A and/or kV according to patient size, and/or use of iterative reconstruction technique. COMPARISON: 09/20/2021 FINDINGS: Again seen are punctate nonobstructing intrarenal calculi bilaterally. No ureteral or blad vero calculi. There is no hydronephrosis or perinephric stranding on either side. Prior gastric sleeve surgery. There is no bowel inflammation, obstruction, free intraperitoneal air, or ascites. Suspected prior appendectomy. Prior cholecystectomy without biliary dilatation. The lung bases, unenhanced liver, pancreas, spleen, adrenal glands, urinary bladder, and osseous stru ctures are normal. Small fat-containing umbilical hernia. IMPRESSION: Bilateral nephrolithiasis without urinary obstruction. No acute abdominal or pelvic find ings. Electronically signed by: Janiya Coy MD 11/07/2021 11:55 PM CDT Due to temporary technical issues with the PACS/Fluency reporting system, reports are being signed by the in house radiologist without review as a courtesy to ensure prompt reporting. The interpreting r adiologist is fully responsible for the content of the report.
--- NOTE | 2021-11-08 14:10 | RAD REPORT ---
EXAM DESCRIPTION: Abdomen Pelvis W Contrast 11/08/2021 1:36 AM CDT CLINICAL HISTORY: 36 years, Female, Abdominal pain, acute, nonlocalized COMPARISON: 11/07/2021 TECHNIQUE: Contrast-enhanced images of the abdomen and pelvis were performed utilizing 5 mm slice th ickness at 5 mm interval reconstruction from the lung bases to the ischial tuberosities after the adm inistration IV contrast. In addition multiplanar reformats in the coronal and sagittal plane were obtained and reviewed. This exam was performed according to our departmental dose-optimization protocol, which includes auto mated exposure control, adjustment of the mA and/or kV according to patient size and/or use of iterat melvin reconstruction technique. FINDINGS: The lung bases demonstrate to be clear. The liver demonstrates slight decreased attenuation suggesting mild fatty infiltration. Otherwise the liver, pancreas, spleen and adrenal glands demonstrate to be unremarkable, no focal lesions are note d. Surgical clips within the gallbladder fossa correspond to previous cholecystectomy. There is no bi liary duct dilatation. The kidneys demonstrate normal uptake of contrast media. There is a mid right renal calculus measurin g 2.4 mm on image 40. There is a 1.7 mm left lower pole calculus on image 47. There is no evidence fo r hydronephrosis/or hydroureter. Grossly the unopacified stomach demonstrated presence of gastric bypass sleeve. Otherwise the stomach , small bowel and large bowel demonstrate to be within normal limits. There is no evidence for alan l dilatation/or free air. The appendix was not visualized although no significant inflammatory mojica ges are seen within the right lower quadrant. The urinary bladder demonstrate to be unremarkable. The uterus is absent. There are no adnexal mass es. The aorta demonstrate to be normal. There is no retroperitoneal lymphadenopathy. There is no evidence for ascites or and/or significant abnormal fluid collections. The rest of the soft tissue an d bony structures are within normal limits. IMPRESSION: No acute intra-abdominal process. Bilateral nephrolithiasis. Status post cholecystectomy and hysterectomy. Status post gastric bypass sleeve. Mild fatty infiltration of the liver. Electronically signed by: Basil Mcduffie MD 11/08/2021 1:41 AM CDT Due to temporary technical issues with the PACS/Fluency reporting system, reports are being signed by the in house radiologist without review as a courtesy to ensure prompt reporting. The interpreting r adiologist is fully responsible for the content of the report.
== END 2021-11-08 02:11 | disposition home or self-care (01) ==
LOC: ER 22:23
DX: R10.9 Unspecified abdominal pain (principal); R11.2 Nausea with vomiting, unspecified; F17.210 Nicotine dependence, cigarettes, uncomplicated; Z88.5 Allergy status to narcotic agent; Z88.6 Allergy status to analgesic agent
CPT/HCPCS: 36415; 74176; 74177; 76377; 80053; 81003; 85025; J1170; J2175; J2405; J2550; Q9967

== ENCOUNTER 2021-12-25 23:25 | Emergency (ER) | payer SELFPAY ==
--- OUTSIDE RECORDS SUMMARY | 2021-12-25 23:28 | XMS REPORT | Clinical Summary ---
:1985 Author Organization [facility] 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 Active Problems Problem Noted Date Surgical site infection 10/05/2018 Encounter for other preprocedural examination 09/09/19 Overview: EKG 09/08/2018 NSR NR 68 Obesity 09/08/2018 Overview: Formatting of this note is dif ferent from the original. BMI Readings from Last 2 Encounters: 09/08/18 36.82 kg/m Hypothyroidism 09/08/2018 Malignant melanoma of other part of trunk 09/03/2018 Encounters Date Type Specialty Care Team Description 10/26/2021 Office Visit Dermatology Lisbeth Shannon MD Multiple b enign melanocytic nevi (Primary Dx); Personal histor y of malignant melanoma of skin 10/26/2021 Travel 03/23/2021 Orders Only Dermatology Viktoriya Wright RN Persona l history of malignant melan nu of skin (Primary Dx) after 12/25/2020 Immunizations Name Administration Dates Next Due Influenza (IM) Preservative Free 04/05/2009 Influenza, Unspecified 03/30/2011 Tdap 03/30/2011 Surgical History Surgery Date Site/Laterality Comments APPENDECTOMY 07/01/2006 - 06/30/2007 EXPLORATORY LAPAROTOMY 07/01/2006 - Found the endometriosis 06/30/2007 HYSTERECTOMY 07/01/2014 - Still have right ovary 06/30/2015 THYROID SURGERY 07/01/2010 - completely remov ed 06/30/2011 CHOLECYSTECTOMY 07/01/2015 - 06/30/2016 SHOULDER SURGERY 07/01/1999 - Rotator cuff 06/30/2000 OVARIAN CYST SURGERY 08/29/2018 - Right 09/28/2018 LA EXC SKIN MALIG 0.6-1 CM 09/23/2018 Abdomen/Right Proce dure: EXCISION OF TRUNK,ARM,LEG MALIGNANT LESION OF TRUNK, right epi gastric; Surgeon: Nicolasa Valentine MD; Location: [facility] OR; Service: SURG ON C - MELANOMA Medical History Medical History Date Comments Malignant melanoma of other part of 09/03/2018 trunk Renal stone 2007 multiple over the pa [address] 12 years Uterine leiomyoma 2006 I have had a hystere ctomy Polycystic ovarian syndrome 2006 I still have my right ovary and get cyst often on it. 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 Depressive disorder 2005 Anxiety 2005 Family History Medical History Relation Name Comments -Breast cancer Mother Kathy Odell in 2 006 Relation Name Status Comments Mother Kathy Odell Social History Tobacco Use Types Packs/Day Years Used Date Former Smoker 0.25 10 07/01/2004 - 1 07/11/2016 Smokeless Tobacco: Never Used Alcohol Use Standard Drinks/Week Comments No 0 (1 standard drink = 0.6 oz pure alcoho l) Sex Assigned at Date Recorded Not on file Obstetrics History Last Filed Vital Signs Vital Sign Reading Time Taken Comments Blood Pressure 119/87 10/26/2021 10:16 AM CDT Pulse 92 10/26/2021 10:16 AM CDT Temperature - - Respiratory Rate 16 10/26/2021 10:16 AM CDT Oxygen Saturation 98% 10/26/2021 10:16 AM CDT Inhaled Oxygen Concentration - - Weight - - Height - - Body Mass Index - - Plan of Treatment Date Type Specialty Care Team Description 10/25/2022 Office Visit Dermatology Lisbeth Shannon M D [address] [place], [place] [address] (Wo rk) Health Maintenance Due Date Last Done Comments COVID-19 Vaccination (#1) 1991 Results Not on fileafter 12/25/2020 Advance Directives Code Status Date Activated Date Inactivated Comments Full Code 10/04/2018 8:21 PM 10/08/2018 5:55 PM Full Code 09/23/2018 1:48 PM 09/23/2018 6:55 PM Care Teams Hotel Controller Relationship Specialty Start Date End Date Keila Valentine MD PCP - General Surgical Oncology 08/26/18 [address] [place] [address] Navi Arango FNP PCP - External Primary Family Practice 09/08/18 [address] [place] [address]
--- OUTSIDE RECORDS SUMMARY | 2021-12-25 23:38 | XMS REPORT | Continuity of Care Document ---
:1985 Author Organization [facility] t Address [address] [place] [address] Care Team Providers Name Role Phone [phone] Primary Care Physician Unavailable Yari Arango Attending Clinician Unavailable Mohan KNOWLES Attending Clinician MOHAN Attending Clinician Unavailable WAN Attending Clinician Unavailable Wan BARNARD Attending Clinician LARA Attending Clinician Unavailable Gerald Clements Attending Clinician Unavailable JANIA Attending Clinician Unavailable TAJ COTTON Attending Clinician Unavailable Zoltan Wright RN Attending Clinician RODRICK Attending Clinician Unavailable MR CHIDI Attending Clinician Unavailable Zarina Perez Attending Clinician Unavailable DO СВЕТЛАНА Attending Clinician Unavailable WANDA Attending Clinician Unavailable RIVERA Attending Clinician Unavailable Zoltan WOLFE Attending Clinician Unavailable JAYSHREEYULIANA Attending Clinician Unavailable HAL Attending Clinician Unavailable LUCÍA WILSON DR Attending Clinician Unavailable DARYL Attending Clinician Unavailable LARA Admitting Clinician Unavailable Physician, Primary or Family Admitting Clinician Unavailrenetta DYKES Admitting Clinician Unavailable TAJ COTTON Admitting Clinician Unavailable RODRICK Admitting Clinician Unavailable MR CHIDI Admitting Clinician Unavailable DO СВЕТЛАНА Admitting Clinician Unavailable WANDA Admitting Clinician Unavailable TRMAYA Admitting Clinician Unavailable Zoltan WOLFE Admitting Clinician Unavailable GEOVANIYULIANA Admitting Clinician Unavailable HAL Admitting Clinician Unavailable LUCÍA WILSON DR Admitting Clinician Unavailable DARYL Admitting Clinician Unavailable Irwin THOMPSON Admitting Clinician Unavailable SHABNAM Admitting Clinician Unavailable DR MERLE Admitting Clinician Unavailable Payers Payer Name Policy Type Policy Number Effective Date Expiration Date Abhinav durbin [id number] 1958 00:00:00 [id number] 1958 00:00:00 PHCS GENERIC [id number] 2018 00:00:00 Problems Condition Condition Condition Status Onset Resolution Last Treating Co mments Source Name Details Category Date Date Treatment Clinician Date Chronic Chronic Problem Active [facility] abdominal abdominal 6-10 [facility] pain pain 00:00: Memoria 00 l (LUF/LI V/SA) Drug Drug Problem Active [facility] seeking seeking 6-10 [facility] behavior behavior 00:00: Memori a 00 l (LUF/LI V/SA) Generalize Generalize Problem Active 2019-[address] [facility] d 2-01 [facility] abdominal abdominal 00:00: Harpreet marc pain pain 00 l (LUF/LI V/SA) Abdominal Abdominal Problem Active [facility] pain - pain - 8-27 [facility] cause cause 00:00: Memoria unknown unknown 00 l (LUF/LI V/SA) Abdominal Abdominal Problem Active [facility] pain pain 8-27 [facility] 00:00: Memoria 00 l (LUF/LI V/SA) Kidney Kidney Problem Active [facility] stone stone 8-12 [facility] 00:00: Memoria 00 l (LUF/LI V/SA) Low back Low back Problem Active [facility] pain pain 7-27 [facility] 00:00: Memoria 00 l (LUF/LI V/SA) Unspecifie Unspecifie Problem Active [facility] d fall d fall 7 [facility] 00:00: Memoria 00 l (LUF/LI V/SA) Chronic Chronic Problem Active [facility] abdominal abdominal 6-10 Luke s pain pain 00:00: Memoria 00 l (LUF/LI V/SA) Tension-ty Tension-ty Problem Active [facility] pe pe - [facility] headache headache 00:00: Memori a 00 l (LUF/LI V/SA) Constipati Constipati Problem Active 2018-[address] on on 1-17 [facility] 00:00: Memoria 00 l (LUF/LI V/SA) Cyst of Cyst of Problem Active [facility] right right 6-09 [facility] ovary ovary 00:00: Memoria 00 l (LUF/LI V/SA) Surgical Surgical Disease Active Unive rs site site 4-07 ity of infection infection 00:00: [facility] s MD [facility] Encounter Encounter Disease Active Overview: Univers for other for other 09-08 Formattin i ty of preprocedu preprocedu 00:00: g of this [place] [facility] 00 note examinatimorena examinasandra might be [facility] different n from the Cancer original. Center EKG 09/08/2018 NSRNR [id number] Obesity Obesity Disease Active Overview: Univ ers 3-11 Formattin ity of 00:00: g of this 00 note is MD jim Springer from the n original. Cancer BMI Center Readings from Last 2 Encounter s: 09/08/18 36.82 kg/m2 Hypothyroi Hypothyroi Disease Active U nivers dism dism 3-11 ity of 00:00: [place] 00 MD [facility] Malignant Malignant Disease Active Uni vers melanoma melanoma 3-06 ity of of other of other 00:00: [place] part of part of 00 trunk trunk [facility] Mass of Mass of Problem Active [facility] ovary ovary 3-04 [facility] 00:00: Memoria 00 l (LUF/LI V/SA) Sinusitis Sinusitis Problem Active [facility] 4-11 [facility] 00:00: Memoria 00 l (LUF/LI V/SA) Abdominal Abdominal Problem Active [facility] pain pain 1-31 [facility] 00:00: Memoria 00 l (LUF/LI V/SA) Flank pain Flank pain Problem Active [facility] 5-14 [facility] 00:00: Memoria 00 l (LUF/LI V/SA) Left lower Left lower Problem Active 2014-[address] quadrant quadrant 0-18 [facility] pain pain 00:00: Memoria 00 l (LUF/LI V/SA) Blood in Blood in Problem Active 2014-07 [facility] urine urine 0-18 [facility] 00:00: Memoria 00 l (LUF/LI V/SA) HYDRONEPHR HYDRONEPHR Problem Active [facility] OSIS OSIS [facility] Memoria l (LUF/LI V/SA) HYPERTENSI HYPERTENSI Problem Active [facility] VE CHRONIC VE CHRONIC Olamide kes KIDNEY KIDNEY Memoria DISEASE DISEASE l (LUF/LI V/SA) CALCULUS CALCULUS Problem Active [facility] t OF URETER OF URETER Luke s Memoria l (LUF/LI V/SA) UNSPECIFIE UNSPECIFIE Problem Active [facility] HYPOTHYROI HYPOTHYROI Me moria DISM DISM l (LUF/LI V/SA) 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 Memoria l (LUF/LI V/SA) Pain in Pain in Problem Active [facility] pelvis pelvis [facility] Memoria l (LUF/LI V/SA) Anxiety Anxiety Problem Active [facility] Mem[facility] (LUF/LI V/SA) No known No known Disease Unive rs active active ity of problems problems [facility] [place] [facility] Allergies, Adverse Reactions, Alerts Allergy Allergy Status Severity Reaction(s) Onset Inactive Treating Comm ents Source Name Type Date Date Clinician ketorola DA Active U rash [facility] 2[facility]07 [place] 00:00: d 00 [facility] KETOROLA DRUG Active Low Rash 2020-07 Univers C INGREDI 2- ity of 00:00: [place] 00 [facility] Ketorola Propensi Active Rash 2020-07 Univer s c ty to 2- ity of adverse 00:00: [place] reaction 00 [facility] ketorola DA Active AL 2019-0 [facility] 9-10 [facility] 00:[facility] [place] ketorola DA Active U rash [facility] c 03-24 [place] 00:00: d 00 [facility] ketorola DA Active U [facility] c 9- [place] 00:00: d 00 [facility] [place] Ket[place]ola Drug Active Itching 2010- Univers c Allergy 1-19 ity of 00:00: [place] 00 MD Gian payton [facility] Toradol Adverse Active Info Not Common Reaction Available Spiri t - [facility] Family History Family Member Diagnosis Comments Start Date Stop Date Source Natural mother -Breast cancer [facility] Cance r [place] Social History Social Habit Start Date Stop Date Quantity Comments Source Exposure to 2021-11-19 2021-11-29 Not sure [facility] SARS-CoV-2 (event) 00:00:00 17:39:00 [facility] [place] [facility] Alcohol intake 2018-10-04 2018-10-04 Current University of 00:00:00 00:00:00 non-drinker of [place] MD Lila muñoz alcohol [facility] (finding) Cigarette 2018-09-04 2018-09-04 University of pack-years 00:00:00 00:00:00 [place] MD Bah [facility] Tobacco use and 2018-09-04 2018-09-04 Smokeless Universit y of exposure 00:00:00 00:00:00 tobacco non-user [facility] Cigarettes smoked 2018-09-04 2018-09-04 Univers ity of current (pack per 00:00:00 00:00:00 [place] Zoltan Neely ) - Reported Cancer Ce nter History of tobacco 2004-07-01 2017-05-11 Current smoker Un iversity of use 00:00:00 00:00:00 [place] MD Bah [facility] Sex [birth year] Universit y of 00:00:00 00:00:00 [place] MD Olvin banuelos [facility] Smoking Status Start Date Stop Date Source Never smoker [facility] Ex-smoker 2018-09-04 00:00:00 2018-09-04 00:00:00 Universi ty of [facility] Medications Ordered Filled Start Stop Current Ordering Indication Dosage Frequency Signature Comments Components Source Medication Medication Date Date Medication? Clinician (SIG) Name Name methylPREDN Yes [id number] Take by Univers ISolone 11-29 mouth ity of (MEDROL, 00:00: SEE-INSTRU Jacques as TE,) 4 mg 00 CTIONS. Medica l tablets follow Branch package directions amoxicillin 2021- Yes [id number] 1{tbl} Take 1 Univers -clavulanat 11-29 tablet by it y of e [id number] 00:00: 04:59 mouth 2 [place] mg per 00 :00 (two) Medical tablet times Branch daily for 7 days. codeine-gua 2021- Yes [id number] 5mL Take 5 mL Univers ifenesin 11-29 by mouth ity of 10-100 mg/5 00:00: 04:59 [place] 6 [place] mL oral 00 :00 (six) Medical solution hours as Branch needed for Cough for up to 7 days. Indication s: acute pain estrogens, Yes Take by Uni vers conjugated 08-29 mouth. ity of (PREMARIN 16:19: [place] ORAL) 44 Medical Branch naproxen Yes [id number] 500mg Take 1 U nivers (NAPROSYN) 2-02 tablet by ity of 500 mg 00:00: mouth 2 [place] tablet 00 (two) Medical times Branch daily with meals. albuterol 2020-07 Yes [id number] 2{puff} Inhale 2 Univers 90 2-22 Puffs ity of mcg/actuati 00:00: every 6 [place] as on inhaler 00 (six) Medical hours as Branch needed for Wheezing or Bronchospa sm. codeine-gua 2020-07 Yes 10mL Take 10 mL Univers ifenesin 2-22 by mouth ity of 10-100 mg/5 00:00: every 6 Jacques as mL oral 00 (six) Medical solution hours as Branch needed for Cough. Indication s: cough levothyroxi 2020-07 Yes TAKE 1 Univ ers ne 137 mcg 2-16 TABLET BY ity of tablet 00:00: MOUTH [place] 00 EVERY DAY Medical IN THE Branch MORNING ON AN EMPTY STOMACH acetaminoph acetaminoph Yes [address] [facility] en 325 MG / en 325 MG / 8-26 L ukes hydrocodone hydrocodone 00:00: Memoria bitartrate bitartrate 00 l 5 MG Oral 5 MG Oral (LUF/ LI Tablet Tablet V/SA) acetaminoph acetaminoph Yes [address] [facility] en 325 MG / en 325 MG / 8-26 every 4 to [facility] hydrocodone hydrocodone 00:00: 6 hours as Memoria bitartrate bitartrate 00 needed. l 5 MG Oral 5 MG Oral (as needed (LUF/LI Tablet Tablet for pain) V/SA) Premarin Premarin 2018-07 Yes Kaywin 1 tablet Common 0-23 [facility] 00:00: - [facility] 00 [facility] estrogens, 2018-07 Yes Take by Univ ers conjugated 0-23 mouth ity of (PREMARIN 00:00: daily. [place] ORAL) 00 [facility] Estradiol Estradiol 2018-07 Yes Kaywin 1 tablet Common 0- [facility] 00:00: - [facility] 00 [facility] citalopram Yes Univers (CeleXA) 40 9-10 ity of mg tablet 00:00: [place] [facility] 2010-0 Yes Univer s ne 175 mcg 8-10 ity of cap 00:00: [place] 00 [facility] zolpidem 2006-0 Yes Univers (AMBIEN) 10 1-01 ity of mg tablet 00:00: [place] 00 [facility] acetaminoph acetaminoph Yes [address] [facility] en 300 MG / en 300 MG / L ukes codeine codeine Memoria phosphate phosphate l 30 MG Oral 30 MG Oral (OLAMIDE F/LI Tablet Tablet V/SA) acetaminoph acetaminoph Yes [address] [facility] en 325 MG / en 325 MG / L ukes hydrocodone hydrocodone M emoria bitartrate bitartrate l 5 MG Oral 5 MG Oral (LUF/ LI Tablet Tablet V/SA) cyclobenzap cyclobenzap Yes 10mg [facility] rine 10 mg rine 10 mg Gutierrez es tablet tablet Memoria l (LUF/LI V/SA) estrogens, estrogens, Yes 1.25mg 1xD [facility] conjugated conjugated Gutierrez es (CORRECTION) 1.25 (CORRECTION) 1.25 Mem oria MG Oral MG Oral l Tablet Tablet (LUF/LI V/SA) levothyroxi levothyroxi Yes 150ug 1xD [facility] ne ne [facility] Memoria l (LUF/LI V/SA) acetaminoph acetaminoph Yes [address] [facility] en 300 MG / en 300 MG / every 4 to [facility] codeine codeine 6 hours as Mem oria phosphate phosphate needed. l 30 MG Oral 30 MG Oral (as needed (LUF/LI Tablet Tablet for pain) V/SA) acetaminoph acetaminoph Yes [address] [facility] en 325 MG / en 325 MG / every 6 [facility] hydrocodone hydrocodone hours as Memoria bitartrate bitartrate needed. l 5 MG Oral 5 MG Oral (as needed (LUF/LI Tablet Tablet for pain; V/SA) as needed for pain) cyclobenzap cyclobenzap Yes 10mg orally [facility] rine 10 mg rine 10 mg once daily [facility] tablet tablet at bedtime Memor ia as needed. l (as needed (LUF/LI for muscle V/SA) spasm) estrogens, estrogens, Yes 1.25mg 1xD orally [facility] conjugated conjugated daily Olamide kes (CORRECTION) 1.25 (CORRECTION) 1.25 Mem oria MG Oral MG Oral l Tablet Tablet (LUF/LI V/SA) levothyroxi levothyroxi Yes 150ug 1xD orally [facility] ne ne daily [facility] Memoria l (LUF/LI V/SA) Celexa Celexa Yes Kaywin 1 tablet Commo n Aiden [facility] Levothyroxi Levothyroxi Yes Kaywin 1 tablet Common ne Sodium ne Sodium Aiden on an Sp karla empty - [facility] stomach in [facility] Estradiol Estradiol Yes Kaywin 1 patch to Common Aiden skin [facility] Immunizations Ordered Filled Immunization Date Status Comments [facility] e Immunization Name Name influenza, high influenza, high 2015-04-19 Completed [facility] dose seasonal, dose seasonal, 00:00:00 Memori al preservative-free preservative-free (LUF/DAVID/SA) Influenza, 2011-03-30 Completed University of Unspecified 00:00:00 [place] MD [facility] Tdap 2011-03-30 Completed [facility] 00:00:00 [facility] Influenza (IM) 2009-04-05 Completed University of Preservative Free 00:00:00 [facility] [place] Vital Signs Vital Name Observation Time Observation Value Comments Source Systolic blood 2021-11-29 22:40:00 116 mm[Hg] Univer sity of pressure [facility] [place] [facility] Diastolic blood 2021-11-29 22:40:00 85 mm[Hg] Unive rsity of [facility] Heart rate 2021-11-29 22:40:00 87 /min [facility] Body temperature 2021-11-29 22:40:00 37.28 Ericka [facility] Respiratory rate 2021-11-29 22:40:00 16 /min [facility] Body height 2021-11-29 22:40:00 162.6 cm [facility] Body weight 2021-11-29 22:40:00 103.874 kg [facility] BMI 2021-11-29 22:40:00 39.31 kg/m2 [facility] Oxygen saturation in 2021-11-29 22:40:00 98 /min [facility] blood by [facility] Pulse oximetry Branch Height 2021-04-23 00:58:00 162.56 CM Weight 2021-04-23 00:58:00 105.1 KG Height 2021-03-24 10:53:00 162.56 CM Weight 2021-03-24 10:53:00 105 KG Height 2021-03-10 10:55:00 162.56 CM Weight 2021-03-10 10:55:00 105.2 KG Height 2021-02-23 08:24:00 162.56 CM Weight 2021-02-23 08:24:00 110 KG Weight 2021-01-10 00:53:00 102 KG Weight 2020-12-12 12:39:00 102 KG Weight 2020-12-08 10:27:00 103 KG Height 2020-11-21 07:15:00 162.56 CM Weight 2020-11-21 07:15:00 103.1 KG Weight 2020-11-14 09:47:00 103 KG Height 2020-11-08 08:32:00 162.56 CM Weight 2020-11-08 08:32:00 103.1 KG Height 2020-11-01 00:53:00 165.1 CM Weight 2020-11-01 00:53:00 103 KG Height 2020-10-04 23:47:00 165.1 CM Weight 2020-10-04 23:47:00 102.6 KG Height 2020-09-18 01:40:00 162.56 CM Weight 2020-09-18 01:40:00 102.8 KG Height 2020-09-12 00:50:00 165.1 CM Weight 2020-09-12 00:50:00 104.5 KG Height 2020-08-22 01:35:00 162.56 CM Weight 2020-08-22 01:35:00 102 KG Height 2020-08-06 01:39:00 167.64 CM Weight 2020-08-06 01:39:00 104.2 KG Weight 2020-07-19 07:50:00 100 KG Height 2020-07-05 02:50:00 165.1 CM Weight 2020-07-05 02:50:00 102.1 KG Height 2020-06-07 13:38:00 162.56 CM Weight 2020-06-07 13:38:00 99.79 KG Height 2020-05-31 09:45:00 162.56 CM Weight 2020-05-31 09:45:00 99.79 KG Height 2020-04-25 16:50:00 162.56 CM Weight 2020-04-25 16:50:00 99.79 KG Height 2020-03-20 17:17:00 162.56 CM Weight 2020-03-20 17:17:00 106.9 KG Weight 2020-03-17 00:09:00 105.6 KG Weight 2020-03-16 00:08:00 105.6 KG Weight 2020-03-15 00:00:00 104.2 KG Height 2020-03-13 15:31:00 162.56 CM Weight 2020-03-13 15:31:00 101 KG Height 2020-03-01 10:54:00 162.56 CM Weight 2020-03-01 10:54:00 102 KG Weight 2020-02-26 02:09:00 99.6 KG Height 2020-02-25 10:03:00 162.56 CM Weight 2020-02-25 10:03:00 99.79 KG Height 2020-02-25 00:47:00 162.56 CM Weight 2020-02-25 00:47:00 103.4 KG Height 2020-02-10 02:47:00 167.64 CM Weight 2020-02-10 02:47:00 104 KG Height 2020-01-25 11:32:00 162.56 CM Weight 2020-01-25 11:32:00 100.5 KG Height 2019-11-24 00:49:00 165.1 CM Weight 2019-11-24 00:49:00 103 KG Systolic blood 2021-10-26 15:16:33 119 mm[Hg] Univer sity of pressure [place] [facility] Diastolic blood 2021-10-26 15:16:33 87 mm[Hg] Unive rsity of pressure [place] [facility] Heart rate 2021-10-26 15:16:33 92 /min [facility] Respiratory rate 2021-10-26 15:16:33 16 /min [facility] Oxygen saturation in 2021-10-26 15:16:33 98 /min [facility] Arterial blood by Beny muñoz Pulse oximetry [facility] Body Temperature 2021-04-23 00:58:00 97.8 [degF] [facility] (LUF/DAVID/SA) Pulse Rate 2021-04-23 00:58:00 116 /min [facility] (LUF/DAVID/SA) Respiratory Rate 2021-04-23 00:58:00 18 /min [facility] (LUF/DAVID/SA) O2% BldC Oximetry 2021-04-23 00:58:00 99 % [facility] (LUF/DAVID/SA) BP Systolic 2021-04-23 00:58:00 111 mm[Hg] [facility] (LUF/DAVID/SA) BP Diastolic 2021-04-23 00:58:00 77 mm[Hg] [facility] (LUF/DAVID/SA) Height 2021-04-23 00:58:00 64 [in_i] [facility] (LUF/DAVID/SA) Weight 2021-04-23 00:58:00 105.1 kg [facility] (LUF/ADVID/SA) BMI (Body Mass 2021-04-23 00:58:00 40 kg/m2 [facility] (LUF/DAVID/SA) Body Temperature 2021-03-24 10:53:00 98.6 [degF] [facility] (LUF/DAVID/SA) Pulse Rate 2021-03-24 10:53:00 87 /min [facility] (LUF/DAVID/SA) Respiratory Rate 2021-03-24 10:53:00 18 /min [facility] (LUF/DAVID/SA) O2% BldC Oximetry 2021-03-24 10:53:00 97 % [facility] (LUF/DAVID/SA) BP Systolic 2021-03-24 10:53:00 120 mm[Hg] [facility] (LUF/DAVID/SA) BP Diastolic 2021-03-24 10:53:00 86 mm[Hg] [facility] (LUF/DAVID/SA) Height 2021-03-24 10:53:00 64 [in_i] [facility] (LUF/DAVID/SA) Weight 2021-03-24 10:53:00 105 kg [facility] (LUF/DAVID/SA) BMI (Body Mass 2021-03-24 10:53:00 40 kg/m2 [facility]) [facility] (LUF/DAVID/SA) Body Temperature 2021-03-10 10:55:00 98.4 [degF] [facility] (LUF/DAVID/SA) Pulse Rate 2021-03-10 10:55:00 85 /min [facility] (LUF/DAVID/SA) Respiratory Rate 2021-03-10 10:55:00 20 /min [facility] (LUF/DAVID/SA) O2% BldC Oximetry 2021-03-10 10:55:00 100 % [facility] (LUF/DAVID/SA) BP Systolic 2021-03-10 10:55:00 140 mm[Hg] [facility] (LUF/DAVID/SA) BP Diastolic 2021-03-10 10:55:00 98 mm[Hg] [facility] (LUF/DAVID/SA) Height 2021-03-10 10:55:00 64 [in_i] [facility] (F/DAVID/SA) Weight 2021-03-10 10:55:00 105.2 kg [facility] (LUF/DAVID/SA) BMI (Body Mass 2021-03-10 10:55:00 40 kg/m2 [facility]) [facility] (LUF/DAVID/SA) Pulse Rate 2021-02-23 12:32:00 67 /min [facility] (F/DAVID/SA) O2% BldC Oximetry 2021-02-23 12:32:00 98 % [facility] (LUF/DAVID/SA) BP Systolic 2021-02-23 12:32:00 112 mm[Hg] [facility] (LUF/DAVID/SA) BP Diastolic 2021-02-23 12:32:00 70 mm[Hg] [facility] (LUF/DAVID/SA) Heart Rate 2021-02-23 11:16:00 64 /min [facility] (F/DAVID/SA) Respiratory Rate 2021-02-23 11:16:00 14 /min [facility] (LUF/DAVID/SA) Body Temperature 2021-02-23 08:24:00 98.1 [degF] [facility] (F/DAVID/SA) Height 2021-02-23 08:24:00 64 [in_i] [facility] (LUF/DAVID/SA) Weight 2021-02-23 08:24:00 110 kg [facility] (F/DAVID/SA) BMI (Body Mass 2021-02-23 08:24:00 41.9 kg/m2 [facility]) [facility] (LUF/DAVID/SA) Heart Rate 2021-01-10 01:46:00 93 /min [facility] (LUF/DAVID/SA) Pulse Rate 2021-01-10 01:46:00 95 /min [facility] (LUF/DAVID/SA) Respiratory Rate 2021-01-10 01:46:00 16 /min [facility] (LUF/DAVID/SA) O2% BldC Oximetry 2021-01-10 01:46:00 97 % [facility] (LUF/DAVID/SA) BP Systolic 2021-01-10 01:46:00 103 mm[Hg] [facility] (LUF/DAVID/SA) BP Diastolic 2021-01-10 01:46:00 71 mm[Hg] [facility] (LUF/DAVID/SA) Weight 2021-01-10 00:53:00 102 kg [facility] (LUF/DAVID/SA) Body Temperature 2021-01-10 00:47:00 98.6 [degF] [facility] (LUF/DAVID/SA) Pulse Rate 2020-12-12 14:20:00 87 /min [facility] (LUF/DAVID/SA) O2% BldC Oximetry 2020-12-12 14:20:00 98 % [facility] (LUF/DAVID/SA) BP Systolic 2020-12-12 14:20:00 128 mm[Hg] [facility] (LUF/DAVID/SA) BP Diastolic 2020-12-12 14:20:00 86 mm[Hg] [facility] (LUF/DAVID/SA) Body Temperature 2020-12-12 12:39:00 98.9 [degF] [facility] (F/DAVID/SA) Respiratory Rate 2020-12-12 12:39:00 20 /min [facility] (F/DAVID/SA) Weight 2020-12-12 12:39:00 102 kg [facility] (LUF/DAVID/SA) Body Temperature 2020-12-08 10:27:00 98.6 [degF] [facility] (F/DAVID/SA) Pulse Rate 2020-12-08 10:27:00 79 /min [facility] (LUF/DAVID/SA) Respiratory Rate 2020-12-08 10:27:00 16 /min [facility] (LUF/DAVID/SA) O2% BldC Oximetry 2020-12-08 10:27:00 99 % [facility] (LUF/DAVID/SA) BP Systolic 2020-12-08 10:27:00 111 mm[Hg] [facility] (LUF/DAVID/SA) BP Diastolic 2020-12-08 10:27:00 57 mm[Hg] [facility] (LUF/DAVID/SA) Weight 2020-12-08 10:27:00 103 kg [facility] (LUF/DAVID/SA) Body Temperature 2020-11-25 00:27:00 97.9 [degF] [facility] (LUF/DAVID/SA) Pulse Rate 2020-11-25 00:27:00 82 /min [facility] (LUF/DAVID/SA) Respiratory Rate 2020-11-25 00:27:00 17 /min [facility] (LUF/DAVID/SA) O2% BldC Oximetry 2020-11-25 00:27:00 98 % [facility] (LUF/DAVID/SA) BP Systolic 2020-11-25 00:27:00 109 mm[Hg] [facility] (LUF/DAVID/SA) BP Diastolic 2020-11-25 00:27:00 62 mm[Hg] [facility] (LUF/DAVID/SA) Heart Rate 2020-11-21 09:30:00 75 /min [facility] (LUF/DAVID/SA) Respiratory Rate 2020-11-21 09:30:00 14 /min [facility] (LUF/DAVID/SA) BP Systolic 2020-11-21 09:30:00 120 mm[Hg] [facility] (LUF/DAVID/SA) BP Diastolic 2020-11-21 09:30:00 76 mm[Hg] [facility] (LUF/DAVID/SA) Body Temperature 2020-11-21 07:15:00 98.1 [degF] [facility] (LUF/DAVID/SA) Pulse Rate 2020-11-21 07:15:00 103 /min [facility] (LUF/DAVID/SA) O2% BldC Oximetry 2020-11-21 07:15:00 100 % [facility] (LUF/DAVID/SA) Height 2020-11-21 07:15:00 64 [in_i] [facility] (LUF/DAVID/SA) Weight 2020-11-21 07:15:00 103.1 kg [facility] (LUF/DAVID/SA) BMI (Body Mass 2020-11-21 07:15:00 39.2 kg/m2 [facility] (LUF/DAVID/SA) Heart Rate 2020-11-14 13:30:00 69 /min [facility] (LUF/DAVID/SA) Pulse Rate 2020-11-14 13:30:00 70 /min [facility] (LUF/DAVID/SA) Respiratory Rate 2020-11-14 13:30:00 10 /min [facility] (LUF/DAVID/SA) O2% BldC Oximetry 2020-11-14 13:30:00 96 % [facility] (LUF/DAVID/SA) BP Systolic 2020-11-14 13:30:00 103 mm[Hg] [facility] (LUF/DAVID/SA) BP Diastolic 2020-11-14 13:30:00 77 mm[Hg] [facility] (LUF/DAVID/SA) Body Temperature 2020-11-14 09:47:00 97.4 [degF] [facility] (LUF/DAVID/SA) Weight 2020-11-14 09:47:00 103 kg [facility] (F/DAVID/SA) Body Temperature 2020-11-08 08:32:00 98.1 [degF] [facility] (LUF/DAVID/SA) Pulse Rate 2020-11-08 08:32:00 82 /min [facility] (F/DAVID/SA) Respiratory Rate 2020-11-08 08:32:00 20 /min [facility] (LUF/DAVID/SA) O2% BldC Oximetry 2020-11-08 08:32:00 100 % [facility] (LUF/DAVID/SA) BP Systolic 2020-11-08 08:32:00 129 mm[Hg] [facility] (LUF/DAVID/SA) BP Diastolic 2020-11-08 08:32:00 72 mm[Hg] [facility] (LUF/DAVID/SA) Height 2020-11-08 08:32:00 64 [in_i] [facility] (LUF/DAVID/SA) Weight 2020-11-08 08:32:00 103.1 kg [facility] (LUF/DAVID/SA) BMI (Body Mass 2020-11-08 08:32:00 39.2 kg/m2 [facility]) [facility] (LUF/DAVID/SA) Body Temperature 2020-11-01 00:58:00 98.7 [degF] [facility] (LUF/DAVID/SA) Pulse Rate 2020-11-01 00:58:00 104 /min [facility] (F/DAVID/SA) Respiratory Rate 2020-11-01 00:58:00 20 /min [facility] (F/DAVID/SA) O2% BldC Oximetry 2020-11-01 00:58:00 99 % [facility] (LUF/DAVID/SA) BP Systolic 2020-11-01 00:58:00 133 mm[Hg] [facility] (LUF/DAVID/SA) BP Diastolic 2020-11-01 00:58:00 101 mm[Hg] [facility] (F/DAVID/SA) Height 2020-11-01 00:53:00 65 [in_i] [facility] (LUF/DAVID/SA) Weight 2020-11-01 00:53:00 103 kg [facility] (LUF/DAVID/SA) BMI (Body Mass 2020-11-01 00:53:00 37.8 kg/m2 [facility]) [facility] (F/DAVID/SA) Body Temperature 2020-10-04 23:51:00 98 [degF] [facility] (F/DAVID/SA) Pulse Rate 2020-10-04 23:51:00 96 /min [facility] (F/DAVID/SA) Respiratory Rate 2020-10-04 23:51:00 20 /min [facility] (LUF/DAVID/SA) O2% BldC Oximetry 2020-10-04 23:51:00 98 % [facility] (LUF/DAVID/SA) BP Systolic 2020-10-04 23:51:00 125 mm[Hg] [facility] (LUF/DAVID/SA) BP Diastolic 2020-10-04 23:51:00 73 mm[Hg] [facility] (LUF/DAVID/SA) Height 2020-10-04 23:47:00 65 [in_i] [facility] (LUF/DAVID/SA) Weight 2020-10-04 23:47:00 102.6 kg [facility] (LUF/DAVID/SA) BMI (Body Mass 2020-10-04 23:47:00 37.6 kg/m2 [facility] [facility]) [facility] (LUF/DAVID/SA) Body Temperature 2020-09-18 01:44:00 98.3 [degF] [facility] (LUF/DAVID/SA) Pulse Rate 2020-09-18 01:44:00 116 /min [facility] (F/DAVID/SA) Respiratory Rate 2020-09-18 01:44:00 20 /min [facility] (LUF/DAVID/SA) O2% BldC Oximetry 2020-09-18 01:44:00 99 % [facility] (LUF/DAVID/SA) BP Systolic 2020-09-18 01:44:00 127 mm[Hg] [facility] (LUF/DAVID/SA) BP Diastolic 2020-09-18 01:44:00 83 mm[Hg] [facility] (LUF/DAVID/SA) Height 2020-09-18 01:40:00 64 [in_i] [facility] (LUF/DAVID/SA) Weight 2020-09-18 01:40:00 102.8 kg [facility] (LUF/DAVID/SA) BMI (Body Mass 2020-09-18 01:40:00 39.1 kg/m2 [facility]) [facility] (LUF/DAVID/SA) Pulse Rate 2020-09-12 02:16:00 88 /min [facility] (LUF/DAVID/SA) O2% BldC Oximetry 2020-09-12 02:16:00 98 % [facility] (LUF/DAVID/SA) BP Systolic 2020-09-12 02:16:00 113 mm[Hg] [facility] (LUF/DAVID/SA) BP Diastolic 2020-09-12 02:16:00 64 mm[Hg] [facility] (LUF/DAVID/SA) Body Temperature 2020-09-12 00:56:00 97.9 [degF] [facility] (LUF/DAVID/SA) Respiratory Rate 2020-09-12 00:56:00 18 /min [facility] (LUF/DAVID/SA) Height 2020-09-12 00:50:00 65 [in_i] [facility] (LUF/DAVID/SA) Weight 2020-09-12 00:50:00 104.5 kg [facility] (LUF/DAVID/SA) BMI (Body Mass 2020-09-12 00:50:00 38.3 kg/m2 [facility] (LUF/DAVID/SA) Pulse Rate 2020-08-22 03:16:00 100 /min [facility] (LUF/DAVID/SA) O2% BldC Oximetry 2020-08-22 03:16:00 95 % [facility] (LUF/DAVID/SA) BP Systolic 2020-08-22 03:16:00 129 mm[Hg] [facility] (LUF/DAVID/SA) BP Diastolic 2020-08-22 03:16:00 88 mm[Hg] [facility] (LUF/DAVID/SA) Body Temperature 2020-08-22 01:35:00 98.4 [degF] [facility] (LUF/DAVID/SA) Respiratory Rate 2020-08-22 01:35:00 20 /min [facility] (LUF/DAVID/SA) Height 2020-08-22 01:35:00 64 [in_i] [facility] (LUF/DAVID/SA) Weight 2020-08-22 01:35:00 102 kg [facility] (LUF/DAVID/SA) BMI (Body Mass 2020-08-22 01:35:00 38.8 kg/m2 [facility]) [facility] (LUF/DAVID/SA) Pulse Rate 2020-08-06 03:31:00 83 /min [facility] (LUF/DAVDI/SA) O2% BldC Oximetry 2020-08-06 03:31:00 96 % [facility] (LUF/DAVID/SA) BP Systolic 2020-08-06 03:31:00 127 mm[Hg] [facility] (LUF/DAVID/SA) BP Diastolic 2020-08-06 03:31:00 82 mm[Hg] [facility] (LUF/DAVID/SA) Body Temperature 2020-08-06 01:45:00 98 [degF] [facility] (LUF/DAVID/SA) Respiratory Rate 2020-08-06 01:45:00 20 /min [facility] (LUF/DAVID/SA) Height 2020-08-06 01:39:00 66 [in_i] [facility] (LUF/DAVID/SA) Weight 2020-08-06 01:39:00 104.2 kg [facility] (LUF/DAVID/SA) BMI (Body Mass 2020-08-06 01:39:00 37.3 kg/m2 [facility]) [facility] (LUF/DAVID/SA) Pulse Rate 2020-07-19 11:16:00 67 /min [facility] (LUF/DAVID/SA) O2% BldC Oximetry 2020-07-19 11:16:00 94 % [facility] (LUF/DAVID/SA) BP Systolic 2020-07-19 11:16:00 101 mm[Hg] [facility] (LUF/DAVID/SA) BP Diastolic 2020-07-19 11:16:00 63 mm[Hg] [facility] (LUF/DAVID/SA) Body Temperature 2020-07-19 07:50:00 98 [degF] [facility] (LUF/DAVID/SA) Respiratory Rate 2020-07-19 07:50:00 18 /min [facility] (LUF/DAVID/SA) Weight 2020-07-19 07:50:00 100 kg [facility] (LUF/DAVID/SA) Heart Rate 2020-07-05 04:46:00 80 /min [facility] (LUF/DAVID/SA) Respiratory Rate 2020-07-05 04:46:00 15 /min [facility] (LUF/DAVID/SA) BP Systolic 2020-07-05 04:46:00 134 mm[Hg] [facility] (LUF/DAVID/SA) BP Diastolic 2020-07-05 04:46:00 60 mm[Hg] [facility] (LUF/DAVID/SA) Body Temperature 2020-07-05 02:57:00 98 [degF] [facility] (LUF/DAVID/SA) Pulse Rate 2020-07-05 02:57:00 82 /min [facility] (LUF/DAVID/SA) O2% BldC Oximetry 2020-07-05 02:57:00 99 % [facility] (LUF/DAVID/SA) Height 2020-07-05 02:50:00 65 [in_i] [facility] (LUF/DAVID/SA) Weight 2020-07-05 02:50:00 102.1 kg [facility] (LUF/DAVID/SA) BMI (Body Mass 2020-07-05 02:50:00 37.5 kg/m2 [facility] (LUF/DAVID/SA) Body Temperature 2020-06-07 13:38:00 98.5 [degF] [facility] (LUF/DAVID/SA) Pulse Rate 2020-06-07 13:38:00 95 /min [facility] (LUF/DAVID/SA) Respiratory Rate 2020-06-07 13:38:00 20 /min [facility] (LUF/DAVID/SA) O2% BldC Oximetry 2020-06-07 13:38:00 97 % [facility] (LUF/DAVID/SA) BP Systolic 2020-06-07 13:38:00 129 mm[Hg] [facility] (LUF/DAVID/SA) BP Diastolic 2020-06-07 13:38:00 73 mm[Hg] [facility] (LUF/DAVID/SA) Height 2020-06-07 13:38:00 64 [in_i] [facility] (LUF/DAVID/SA) Weight 2020-06-07 13:38:00 99.79 kg [facility] (LUF/DAVID/SA) BMI (Body Mass 2020-06-07 13:38:00 38 kg/m2 [facility]) [facility] (LUF/DAVID/SA) Body Temperature 2020-05-31 09:45:00 99.6 [degF] [facility] (LUF/DAVID/SA) Pulse Rate 2020-05-31 09:45:00 86 /min [facility] (LUF/DAVID/SA) Respiratory Rate 2020-05-31 09:45:00 18 /min [facility] (LUF/DAVID/SA) O2% BldC Oximetry 2020-05-31 09:45:00 98 % [facility] (LUF/DAVID/SA) BP Systolic 2020-05-31 09:45:00 118 mm[Hg] [facility] (LUF/DAVID/SA) BP Diastolic 2020-05-31 09:45:00 78 mm[Hg] [facility] (LUF/DAVID/SA) Height 2020-05-31 09:45:00 64 [in_i] [facility] (LUF/DAVID/SA) Weight 2020-05-31 09:45:00 99.79 kg [facility] (LUF/DAVID/SA) BMI (Body Mass 2020-05-31 09:45:00 38 kg/m2 [facility]) [facility] (LUF/DAVID/SA) Heart Rate 2020-04-25 20:01:00 69 /min [facility] (LUF/DAVID/SA) Pulse Rate 2020-04-25 20:01:00 71 /min [facility] (LUF/DAVID/SA) Respiratory Rate 2020-04-25 20:01:00 18 /min [facility] (LUF/DAVID/SA) O2% BldC Oximetry 2020-04-25 20:01:00 100 % [facility] (LUF/DAVID/SA) BP Systolic 2020-04-25 20:01:00 126 mm[Hg] [facility] (LUF/DAVID/SA) BP Diastolic 2020-04-25 20:01:00 86 mm[Hg] [facility] (LUF/DAVID/SA) Body Temperature 2020-04-25 16:50:00 98.4 [degF] [facility] (LUF/DAVID/SA) Height 2020-04-25 16:50:00 64 [in_i] [facility] (LUF/DAVID/SA) Weight 2020-04-25 16:50:00 220 [lb_av] [facility] (LUF/DAVID/SA) BMI (Body Mass 2020-04-25 16:50:00 38 kg/m2 [facility] (LUF/DAVID/SA) Heart Rate 2020-03-20 18:18:00 112 /min [facility] (LUF/DAVID/SA) Pulse Rate 2020-03-20 18:16:00 93 /min [facility] (LUF/DAVID/SA) O2% BldC Oximetry 2020-03-20 18:16:00 92 % [facility] (LUF/DAVID/SA) BP Systolic 2020-03-20 18:16:00 127 mm[Hg] [facility] (LUF/DAVID/SA) BP Diastolic 2020-03-20 18:16:00 85 mm[Hg] [facility] (LUF/DAVID/SA) Body Temperature 2020-03-20 17:17:00 99.2 [degF] [facility] (LUF/DAVID/SA) Respiratory Rate 2020-03-20 17:17:00 19 /min [facility] (LUF/DAVID/SA) Height 2020-03-20 17:17:00 64 [in_i] [facility] (LUF/DAVID/SA) Weight 2020-03-20 17:17:00 106.9 kg [facility] (LUF/DAVID/SA) BMI (Body Mass 2020-03-20 17:17:00 40.7 kg/m2 [facility] (LUF/DAVID/SA) Respiratory Rate 2020-03-17 10:33:00 16 /min [facility] (LUF/DAVID/SA) Body Temperature 2020-03-17 07:54:00 97.9 [degF] [facility] (LUF/DAVID/SA) Pulse Rate 2020-03-17 07:54:00 83 /min [facility] (LUF/DAVID/SA) O2% BldC Oximetry 2020-03-17 07:54:00 96 % [facility] (LUF/DAVID/SA) BP Systolic 2020-03-17 07:54:00 107 mm[Hg] [facility] (LUF/DAVID/SA) BP Diastolic 2020-03-17 07:54:00 75 mm[Hg] [facility] (LUF/DAVID/SA) Weight 2020-03-17 00:09:00 105.6 kg [facility] (LUF/DAVID/SA) Heart Rate 2020-03-13 15:46:00 81 /min [facility] (LUF/DAVID/SA) Height 2020-03-13 15:31:00 64 [in_i] [facility] (LUF/DAVID/SA) Body Temperature 2020-03-02 15:20:00 98.6 [degF] [facility] (LUF/DAVID/SA) Pulse Rate 2020-03-02 15:20:00 86 /min [facility] (LUF/DAVID/SA) Respiratory Rate 2020-03-02 15:20:00 18 /min [facility] (LUF/DAVID/SA) O2% BldC Oximetry 2020-03-02 15:20:00 99 % [facility] (LUF/DAVID/SA) BP Systolic 2020-03-02 15:20:00 131 mm[Hg] [facility] (LUF/DAVID/SA) BP Diastolic 2020-03-02 15:20:00 85 mm[Hg] [facility] (LUF/DAVID/SA) Height 2020-03-01 10:54:00 64 [in_i] [facility] (LUF/DAVID/SA) Weight 2020-03-01 10:54:00 102 kg [facility] (LUF/DAVID/SA) BMI (Body Mass 2020-03-01 10:54:00 38.8 kg/m2 [facility] (LUF/DAVID/SA) Respiratory Rate 2020-02-27 07:47:00 16 /min [facility] (LUF/DAVID/SA) Body Temperature 2020-02-27 07:32:00 98.2 [degF] [facility] (LUF/DAVID/SA) Pulse Rate 2020-02-27 07:32:00 94 /min [facility] (LUF/DAVID/SA) O2% BldC Oximetry 2020-02-27 07:32:00 95 % [facility] (LUF/DAVID/SA) BP Systolic 2020-02-27 07:32:00 111 mm[Hg] [facility] (LUF/DAVID/SA) BP Diastolic 2020-02-27 07:32:00 56 mm[Hg] [facility] (LUF/DAVID/SA) Weight 2020-02-26 02:09:00 99.6 kg [facility] (LUF/DAVID/SA) Height 2020-02-25 10:03:00 64 [in_i] [facility] (LUF/DAVID/SA) Body Temperature 2020-02-25 00:52:00 97.9 [degF] [facility] (LUF/DAVID/SA) Pulse Rate 2020-02-25 00:52:00 118 /min [facility] (LUF/DAVID/SA) Respiratory Rate 2020-02-25 00:52:00 18 /min [facility] (LUF/DAVID/SA) O2% BldC Oximetry 2020-02-25 00:52:00 97 % [facility] (LUF/DAVID/SA) BP Systolic 2020-02-25 00:52:00 133 mm[Hg] [facility] (LUF/DAVID/SA) BP Diastolic 2020-02-25 00:52:00 67 mm[Hg] [facility] (LUF/DAVID/SA) Height 2020-02-25 00:47:00 64 [in_i] [facility] (LUF/DAVID/SA) Weight 2020-02-25 00:47:00 103.4 kg [facility] (LUF/DAVID/SA) BMI (Body Mass 2020-02-25 00:47:00 39.3 kg/m2 [facility]) [facility] (LUF/DAVID/SA) Body Temperature 2020-01-25 11:32:00 98.4 [degF] [facility] (LUF/DAVID/SA) Pulse Rate 2020-01-25 11:32:00 81 /min [facility] (LUF/DAVID/SA) Respiratory Rate 2020-01-25 11:32:00 14 /min [facility] (LUF/DAVID/SA) O2% BldC Oximetry 2020-01-25 11:32:00 98 % [facility] (LUF/DAVID/SA) BP Systolic 2020-01-25 11:32:00 139 mm[Hg] [facility] (LUF/DAVID/SA) BP Diastolic 2020-01-25 11:32:00 89 mm[Hg] [facility] (LUF/DAVID/SA) Height 2020-01-25 11:32:00 64 [in_i] [facility] (LUF/DAVID/SA) Weight 2020-01-25 11:32:00 100.5 kg [facility] (LUF/DAIVD/SA) BMI (Body Mass 2020-01-25 11:32:00 38.2 kg/m2 [facility]) [facility] (LUF/DAVID/SA) Heart Rate 2019-11-24 04:16:00 84 /min [facility] (LUF/DAVID/SA) Pulse Rate 2019-11-24 04:16:00 90 /min [facility] (LUF/DAVID/SA) Respiratory Rate 2019-11-24 04:16:00 26 /min [facility] (LUF/DAVID/SA) O2% BldC Oximetry 2019-11-24 04:16:00 98 % [facility] (LUF/DAVID/SA) BP Systolic 2019-11-24 04:16:00 106 mm[Hg] [facility] (LUF/DAVID/SA) BP Diastolic 2019-11-24 04:16:00 69 mm[Hg] [facility] (LUF/DAVID/SA) Body Temperature 2019-11-24 00:54:00 98.4 [degF] [facility] (LUF/DAVID/SA) Height 2019-11-24 00:49:00 65 [in_i] [facility] (LUF/DAVID/SA) Weight 2019-11-24 00:49:00 103 kg [facility] (LUF/DAVID/SA) BMI (Body Mass 2019-11-24 00:49:00 37.8 kg/m2 [facility]) [facility] (LUF/DAVID/SA) Heart Rate 2019-10-07 22:54:00 83 /min [facility] (LUF/DAVID/SA) Respiratory Rate 2019-10-07 22:54:00 14 /min [facility] (LUF/DAVID/SA) Pulse Rate 2019-10-07 22:31:00 89 /min [facility] (LUF/DAVID/SA) O2% BldC Oximetry 2019-10-07 22:31:00 97 % [facility] (LUF/DAVID/SA) BP Systolic 2019-10-07 21:16:00 127 mm[Hg] [facility] (LUF/DAVID/SA) BP Diastolic 2019-10-07 21:16:00 85 mm[Hg] [facility] (LUF/DAVID/SA) Height 2019-10-07 20:41:00 64 [in_i] [facility] (LUF/DAVID/SA) Weight 2019-10-07 20:41:00 100.2 kg [facility] (LUF/DAVID/SA) BMI (Body Mass 2019-10-07 20:41:00 38.1 kg/m2 [facility]) [facility] (LUF/DAVID/SA) Pulse Rate 2019-09-20 04:16:00 96 /min [facility] (LUF/DAVID/SA) Respiratory Rate 2019-09-20 04:16:00 9 /min [facility] (LUF/DAVID/SA) O2% BldC Oximetry 2019-09-20 04:16:00 96 % [facility] (LUF/DAVID/SA) BP Systolic 2019-09-20 04:16:00 97 mm[Hg] [facility] (LUF/DAVID/SA) BP Diastolic 2019-09-20 04:16:00 76 mm[Hg] [facility] (LUF/DAVID/SA) Body Temperature 2019-09-20 00:44:00 98 [degF] [facility] (LUF/DAVID/SA) Height 2019-09-20 00:39:00 65 [in_i] [facility] (LUF/DAVID/SA) Weight 2019-09-20 00:39:00 101.9 kg [facility] (LUF/DAVID/SA) BMI (Body Mass 2019-09-20 00:39:00 37.4 kg/m2 [facility] (LUF/DAVID/SA) Pulse Rate 2019-08-17 04:31:00 81 /min [facility] (LUF/DAVID/SA) Respiratory Rate 2019-08-17 04:31:00 13 /min [facility] (LUF/DAVID/SA) O2% BldC Oximetry 2019-08-17 04:31:00 97 % [facility] (LUF/DAVID/SA) BP Systolic 2019-08-17 04:31:00 136 mm[Hg] [facility] (LUF/DAVID/SA) BP Diastolic 2019-08-17 04:31:00 75 mm[Hg] [facility] (LUF/DAVID/SA) Body Temperature 2019-08-17 02:23:00 97.6 [degF] [facility] (LUF/DAVID/SA) Height 2019-08-17 02:19:00 64 [in_i] [facility] (LUF/DAVID/SA) Weight 2019-08-17 02:19:00 100.6 kg [facility] (LUF/DAVID/SA) BMI (Body Mass 2019-08-17 02:19:00 38.3 kg/m2 [facility]) [facility] (LUF/DAVID/SA) Pulse Rate 2018-12-07 02:33:00 79 /min [facility] (LUF/DAVID/SA) Respiratory Rate 2018-12-07 02:33:00 15 /min [facility] (LUF/DAVID/SA) O2% BldC Oximetry 2018-12-07 02:33:00 96 % [facility] (LUF/DAVID/SA) BP Systolic 2018-12-07 02:33:00 120 mm[Hg] [facility] (LUF/DAVID/SA) BP Diastolic 2018-12-07 02:33:00 76 mm[Hg] [facility] (LUF/DAVID/SA) Body Temperature 2018-12-07 01:10:00 98.2 F [facility] (F/DAVID/SA) Height 2018-12-07 01:10:00 64 in [facility] (F/DAVID/SA) Weight Measured 2018-12-07 01:10:00 218.25 lbs [facility] (LUF/DAVID/SA) BMI (Body Mass 2018-12-07 01:10:00 37.7 kg/m2 [facility]) [facility] (LUF/DAVID/SA) Pulse Rate 2018-09-30 19:40:00 70 /min [facility] (LUF/DVAID/SA) Respiratory Rate 2018-09-30 19:40:00 21 /min [facility] (F/DAVID/SA) O2% BldC Oximetry 2018-09-30 19:40:00 100 % [facility] (LUF/DAVID/SA) BP Systolic 2018-09-30 19:40:00 124 mm[Hg] [facility] (LUF/DAVID/SA) BP Diastolic 2018-09-30 19:40:00 88 mm[Hg] [facility] (LUF/DAVID/SA) Body Temperature 2018-09-30 19:23:00 99.3 F [facility] (LUF/DAVID/SA) Height 2018-09-30 19:23:00 66 in [facility] (LUF/DAVID/SA) Weight Measured 2018-09-30 19:23:00 212.52 lbs [facility] Abhinav [facility] (LUF/DAVID/SA) BMI (Body Mass 2018-09-30 19:23:00 34.5 kg/m2 [facility] Index) [facility] (LUF/DAVID/SA) Body Temperature 2018-09-01 13:59:00 98 F [facility] (F/DAVID/SA) Pulse Rate 2018-09-01 12:15:00 74 /min [facility] (LUF/DAVID/SA) Respiratory Rate 2018-09-01 12:15:00 16 /min [facility] (F/DAVID/SA) O2% BldC Oximetry 2018-09-01 12:15:00 98 % [facility] (F/DAVID/SA) BP Systolic 2018-09-01 12:15:00 131 mm[Hg] [facility] (F/DAVID/SA) BP Diastolic 2018-09-01 12:15:00 78 mm[Hg] [facility] (F/DAVID/SA) Height 2018-09-01 09:16:00 64 in [facility] (F/DAVID/SA) Weight Measured 2018-09-01 09:16:00 214.24 lbs [facility] Abhinav [facility] (LUF/DAVID/SA) BMI (Body Mass 2018-09-01 09:16:00 37 kg/m2 [facility] Index) [facility] (F/DAVID/SA) Body Temperature 2018-05-13 10:58:00 99 F [facility] (F/DAVID/SA) Pulse Rate 2018-05-13 10:58:00 97 /min [facility] (F/DAVID/SA) Respiratory Rate 2018-05-13 10:58:00 18 /min [facility] (F/DAVID/SA) O2% BldC Oximetry 2018-05-13 10:58:00 98 % [facility] [facility] (F/DAVID/SA) BP Systolic 2018-05-13 10:58:00 131 mm[Hg] [facility] (F/DAVID/SA) BP Diastolic 2018-05-13 10:58:00 88 mm[Hg] [facility] (LUF/DAVID/SA) Height 2018-05-13 10:58:00 64 in [facility] (LUF/DAVID/SA) Weight Measured 2018-05-13 10:58:00 207.23 lbs [facility] (LUF/DAVID/SA) BMI (Body Mass 2018-05-13 10:58:00 35.8 [facility] (LUF/DAVID/SA) Body Temperature 2017-12-24 08:04:00 98.7 F [facility] (LUF/DAVID/SA) Respiratory Rate 2017-12-24 08:04:00 18 /min [facility] (F/DAVID/SA) O2% BldC Oximetry 2017-12-24 08:04:00 98 % [facility] (F/DAVID/SA) BP Systolic 2017-12-24 08:04:00 126 mm[Hg] [facility] (LUF/DAVID/SA) BP Diastolic 2017-12-24 08:04:00 86 mm[Hg] [facility] (LUF/DAVID/SA) Weight Measured 2017-12-24 08:04:00 207.23 lbs [facility] (F/DAVID/SA) Body Temperature 2017-06-20 23:28:00 97.4 F [facility] (F/DAVID/SA) Respiratory Rate 2017-06-20 23:28:00 20 /min [facility] (F/DAVID/SA) O2% BldC Oximetry 2017-06-20 23:28:00 99 % [facility] (LUF/DAVID/SA) BP Systolic 2017-06-20 23:28:00 107 mm[Hg] [facility] (LUF/DAVID/SA) BP Diastolic 2017-06-20 23:28:00 76 mm[Hg] [facility] (LUF/DAVID/SA) Height 2017-06-20 23:28:00 64 in [facility] (LUF/DAVID/SA) Weight Measured 2017-06-20 23:28:00 217.15 lbs [facility] (LUF/DAVID/SA) BMI (Body Mass 2017-06-20 23:28:[address] [facility] Index) [facility] (LUF/DAVID/SA) Procedures Procedure Date / Time Performing Clinician Source Performed POCT MOLECULAR FLU 2021-11-29 22:46:00 Ameena Preston [facility] INS INFUS DEV LT BASILIC 2020-03-15 00:00:[address] [facility] [facility] VN PERQ [facility] (LUF/DAVID/SA) ULTRASONOGRAPHY LT UP EXT 2020-03-15 00:00:[address] [facility] VNS GUID [facility] (LUF/DAVID/SA) ROBOTIC LAP LYSIS OF 2020-03-02 12:56:[address] [facility] ADHESIONS [facility] (LUF/DAVID/SA) LAPAROSCOPY ENTEROLYSIS 2020-03-02 00:00:[address] [facility] SEPARATE PROCEDU [facility] (LUF/DAVID/SA) COLONOSCOPY FLX DX W/COLLJ 2020-02-26 00:00:[address] [facility] SPEC WHEN PFR [facility] (LUF/DAVID/SA) ROBOTIC RIGHT OOPHORECTOMY 2019-03-21 17:09:[address] [facility] LUF (Right) [facility] (LUF/DAVID/SA) CYSTO RGP STENT PLACEMENT 2015-04-20 14:01:[address] [facility] LUF [facility] (LUF/DAVID/SA) CYSTO RGP STENT PLACEMENT 2015-04-20 14:01:[address] [facility] LUF [facility] (LUF/DAVID/SA) Hysterectomy [facility] (LUF/DAVID/SA) Total thyroidectomy [facility] (LUF/DAVID/SA) section [facility] (LUF/DAVID/SA) ABDOMINAL ADHESIONS [facility] REMOVED [facility] (LUF/DAVID/SA) Extracorporeal shockwave [facility] lithotripsy [facility] (LUF/DAVID/SA) MULTIPLE CYSTECTOMYS DONE [facility] (LUF/DAVID/SA) MULTIPLE CYSTECTOMYS DONE [facility] (LUF/DAVID/SA) ABDOMINAL ADHESIONS [facility] REMOVED [facility] (LUF/DAVID/SA) Appendectomy [facility] (LUF/DAVID/SA) Plan of Care Planned Activity Planned Date Details Comments Source Future Scheduled 2021-12-22 COVID-19 Vaccination [facility] [place] Test 05:57:49 (#1) [code = COVID-19 And ebon Cancer Vaccination (#1)] Center Encounters Start End Encounter Admission Attending Care Care Encounter Source Date/Time Date/Time Type Type Clinicians Facility Department ID 2021-07-27 Outpatient Nba, STLMLC STLMLC Common 08:27:02 Josué 0127 [facility] 2021-07-26 Outpatient Nba, STLMLC STLMLC Common 14:20:31 Josué 1203 [facility] 2021-07-26 Outpatient Nba, STLMLC STLMLC Common 14:05:52 Josué 1027 [facility] 2021-07-26 Outpatient Nba, STLMLC STLMLC Common 12:01:28 Josué 1103 [facility] 2021-07-26 Outpatient Nba, STLMLC STLMLC Common 11:56:42 Josué 1019 [facility] 2021-07-26 Outpatient Nba, STLMLC STLMLC Common 11:49:38 Josué 0928 [facility] 2021-07-26 Outpatient Nba, STLMLC STLMLC Common 11:48:02 Josué 0922 [facility] 2021-07-26 Outpatient Nba, STLMLC STLMLC Common 11:47:47 Josué 0921 [facility] 2021-07-26 Outpatient Nba, STLMLC STLMLC Common 11:42:15 Josué 0901 [facility] 2021-07-26 Outpatient Nba, STLMLC STLMLC Common 11:32:09 Josué 0720 [facility] 2021-11-29 2021-11-29 Urgent Mohan, FLJADE [id number] [id number] Univers 17:40:00 18:00:00 [facility] 350.1.13.10 it y of [place] 4.2.7.2.686 Jacques as SUE?BLEA [phone] [address] MEDICAL OFFICE BUILDING 2021-11-29 2021-11-29 Outpatient Irwin PRESTON [facility] [id number] Univers 17:40:00 17:40:00 AMEENA ity of [facility] 2021-10-26 2021-10-26 Outpatient GEOVANI BLAS [facility] [id number] 10:11:48 10:47:06 RPAVEEN payton 2021-10-26 2021-10-26 Office Wan, 1.2.840.1 [id number] [facility] 09:45:00 10:47:06 Visit Praveen 61945.1.1 ity of 3.412.2.7 [place] .3.605529 .8 [facility] [place] 2021-10-26 2021-10-26 Travel 1.2.840.1 [id number] [id number] Univers 00:00:00 00:00:00 57663.1.1 350.1.13.41 ity of 3.412.2.7 2.[place].3.698 [place] .3.727[place] 084.8 .8 [facility] 2021-10-15 2021-10-15 ROSEMARIE 1 SHAMAA, [facility] [id number] [facility] [address] 22:25:00 22:45:00 [facility] [address] stefanie MEHTA (LUF/LI AVE, V/SA) [place] [address] 2021-10-15 2021-10-15 Inpatient [facility] [id number] [facility] 00:00:00 00:00:00 AZALEA [id number] [facility], [id number] Memor ia [address] [id number] stefanie MEHTA (LUF/LI AVE, V/SA) [place] [address] 2021-10-15 2021-10-15 Inpatient [facility] 2f6e [id number] 00:00:00 00:00:00 AZALEA [id number] [facility], [id number] Memor ia [address] [id number] l [place] (LUF/LI AVE, V/SA) [place] ROSA [address] 2021-08-07 2021-08-07 Emergency EM Tyree, HCAPM AMPARO [id number] [facility] 09:36:00 12:55:00 [facility] 2021-08-07 2021-08-07 Emergency EM Tyree, HCAPM HCAPM [id number] [facility] 09:36:00 12:55:00 Olga [facility] 2021-05-30 2021-05-30 ambulatory STLMLC STLMLC [id number] Common 00:00:00 00:00:00 [facility] 2021-05-29 2021-05-29 ambulatory STLMLC STLMLC [id number] Common 00:00:00 00:00:00 [facility] 2021-04-26 2021-04-26 Outpatient STLMLC STLMLC [id number] Common 00:00:00 00:00:00 [facility] 2021-04-23 2021-04-23 UNSPECIFIE 1 JANIA, STLML EMD [id number] 00:46:00 02:08:00 D SETH Dhaliwal ABDOMINAL Memori a PAIN l (LUF/LI V/SA) 2021-04-23 2021-04-23 Inpatient [facility] fb11 [id number] 00:00:00 00:00:00 AZALEA [id number] [facility], [id number] Memor ia [address] [id number] l [place] (LUF/LI AVE, V/SA) [place] ROSA [address] 2021-04-23 2021-04-23 Inpatient [facility] 6aab [id number] 00:00:00 00:00:00 AZALEA [id number] [facility], [id number] Memor ia [address] [id number] l [place] (LUF/LI AVE, V/SA) [place] [address] 2021-03-24 2021-03-24 ANXIETY 1 YURY, [facility] [id number] 10:25:00 12:27:00 DISORDER REHAN [facility] U[place]PECIFIE [place], Memor ia D [address] (LUF/LI AVE, V/SA) [place] [address] 2021-03-24 2021-03-24 Inpatient [facility] [id number] cc2a-c [facility] 00:00:00 00:00:00 AZALEA [id number] [facility], [id number] Memor ia [address] [id number] l [place] (LUF/LI AVE, V/SA) [place] [address] 2021-03-24 2021-03-24 Inpatient [facility] [id number] ff19-c [facility] 00:00:00 00:00:00 AZALEA [id number] [facility], [id number] Memor ia [address] [id number] l [place] (LUF/LI AVE, V/SA) [place] [address] 2021-03-23 2021-03-23 Orders Nofies, 1.2.840.1 [id number] Univers 00:00:00 00:00:00 Only Viktoriya Charlton 53802.1.1 ity of 3.412.2.7 [place] .3.587590 .8 [facility] 2021-03-10 2021-03-10 UTI SITE E [facility], [facility] [id number] 10:29:00 13:50:00 NOT [facility] [place] [facility] [address] [place] (LUF/LI AVE, V/SA) [place] [address] 2021-03-10 2021-03-10 Inpatient [facility] [id number] [id number] [facility] 00:00:00 00:00:00 AZALEA [id number] [facility], [id number] Memor ia [address] [id number] l [place] (LUF/LI AVE, V/SA) [place] [address] 2021-03-10 2021-03-10 Inpatient [facility] [id number] [facility] 00:00:00 00:00:00 AZALEA [id number] [facility], [id number] Memor ia [address] [id number] l [place] (LUF/LI AVE, V/[place]) [place] [address] 2021-02-23 2021-02-23 RIGHT E [facility] [id number] 08:15:00 12:44:00 LOWER [facility] PAIN [address] [place] (LUF/LI AVE, V/SA) [place] [address] 2021-02-23 2021-02-23 Inpatient [facility] [id number] 00:00:00 00:00:00 AZALEA [id number] [facility], [id number] [facility] [address] [id number] l [place] (LUF/LI AVE, V/[place]) [place] [address] 2021-02-23 2021-02-23 Inpatient [facility] [id number] 00:00:00 00:00:00 AZALEA [id number]-[id number] [facility], [id number] [facility] [address] [id number] l [place] (LUF/LI AVE, V/SA) [place] [address] 2021-01-10 2021-01-10 CALCULUS E JANIA, [facility] [id number] [facility] St 00:21:00 03:06:00 OF KIDNEY SETH [facility] [address] [place] (LUF/LI AVE, V/SA) [place] [address] 2021-01-10 2021-01-10 Inpatient [facility] [id number] [id number] [facility] 00:00:00 00:00:00 AZALEA [id number] [facility], [id number] Memor ia [address] [id number] l [place] (LUF/LI AVE, V/[place]) [place] [address] 2021-01-10 2021-01-10 Inpatient [facility]e [facility] 00:[facility]:00 00:00:00 AZALEA [id number] [facility], [id number] Memor ia [address] [id number] l [place] (LUF/LI AVE, V/SA) [place] [address] 2020-12-27 2020-12-27 Emergency [facility] Zarina [id number] [place] 00:00:00 00:00:[address] 2020-12-22 2020-12-22 Outpatient 3 LONI MURILLO TIC [id number] [facility] [address] 09:00:00 09:00:00 [facility] 2020-12-13 2020-12-13 Emergency EM Ana, FRANKIEKW [facility] [id number] [facility] 01:53:00 06:36:00 Tangela [id number] [facility] 2020-12-12 2020-12-12 RIGHT Jake COTTON, [facility] [id number] [facility] 12:33:00 14:00:00 [facility], Memoria PAIN [address] [place] (LUF/LI AVE, V/SA) [place] [address] 2020-12-12 2020-12-12 Inpatient [facility] [id number] [facility] 00:00:00 00:00:00 AZALEA [id number]-[id number] [facility], [id number] Memor ia [address] [id number] l [place] (LUF/LI AVE, V/SA) [place] [address] 2020-12-12 2020-12-12 Inpatient [facility] 43ed f7fe-4 [facility] 00:00:00 00:00:00 AZALEA [id number] [facility], [id number] Memor ia [address] [id number] l [place] (LUF/LI AVE, V/SA) [place] [address] 2020-12-08 2020-12-08 SHREYAS SOTOMAYOR, [facility] [id number] [facility] St 09:44:00 12:26:00 Cihn SCHNEIDER [facility], [facility] a PAIN [address] [place] (LUF/LI AVE, V/SA) [place] [address] 2020-12-08 2020-12-08 Inpatient [facility] [id number] [id number] [facility] 00:00:00 00:00:00 AZALEA [id number] [facility], [id number] Memor ia [address] [id number] l [place] (LUF/LI AVE, V/SA) [place] [address] 2020-11-25 2020-11-25 UNSPECIFIE [facility] [id number] 00:13:00 00:30:00 D [facility] a PAIN [address] [place] (LUF/LI AVE, V/SA) [place] [address] 2020-11-25 2020-11-25 Inpatient [facility] 3041 [id number] 00:00:00 00:00:00 AZALEA [id number] [facility], [id number] Memor ia [address] [id number] l [place] (LUF/LI AVE, V/SA) [place] [address] 2020-11-25 2020-11-25 Inpatient [facility] a3eb ed11-a [facility] 00:00:00 00:00:00 AZALEA [id number] [facility], [id number] Memor ia [address] [id number] l [place] (LUF/LI AVE, V/SA) [place] [address] 2020-11-21 2020-11-21 ENDOMETRIO 1 [facility] [id number] 07:14:00 09:53:00 SIS [facility] U[place]PECIFIE [place], Memor ia D [address] [place] (LUF/LI AVE, V/SA) [place] [address] 2020-11-21 2020-11-21 Inpatient [facility] [id number] 00:00:00 00:00:00 AZALEA [id number] [facility], [id number] Memor ia [address] [id number] l [place] (LUF/LI AVE, V/SA) [place], Y[place] [address] 2020-11-21 2020-11-21 Inpatient [facility] [id number] [id number] 00:00:00 00:00:00 AZALEA [id number]-[id number] [facility], [id number] Memor ia [address] [id number] l [place] (LUF/LI AVE, V/SA) [place], [place] [address] 2020-11-14 2020-11-14 GASTRITIS 1 YURY [facility] EMD [id number] 09:27:00 14:37:00 UNS REHAN Dhaliwal WITHOUT Memoria BLEEDING l (LUF/LI V/SA) 2020-11-14 2020-11-14 Inpatient [facility] d4fe [id number] 00:00:00 00:00:00 AZALEA [id number] [facility], [id number] Memor ia [address] [id number] l [place] (LUF/LI AVE, V/[place]) [place] [address] 2020-11-14 2020-11-14 Inpatient [facility] 324e [id number]-b [facility] St 00:00:00 00:00:00 AZALEA [id number] [facility], [id number] Memor ia [address] [id number] l [place] (LUF/LI AVE, V/[place]) [place] [address] 2020-11-08 2020-11-08 OTHER E YURY, [facility] [id number] [facility] St 08:04:00 13:13:00 CHRONIC REHAN [facility] BENY Dhaliwal [facility], Memoria [address] [place] (LUF/LI AVE, V/SA) [place] [address] 2020-11-08 2020-11-08 Inpatient [facility] [id number] b52c-c [facility] 00:00:00 00:00:00 AZALEA [id number] [facility], [id number] Memor ia [address] [id number] l [place] (LUF/LI AVE, V/SA) [place] [address] 2020-11-08 2020-11-08 Inpatient [facility] 0f07 [id number] [facility] St 00:00:00 00:00:00 AZALEA [id number] [facility], [id number] Memor ia [address] [id number] l [place] (LUF/LI AVE, V/SA) [place] [address] 2020-11-08 2020-11-08 Inpatient [facility] [id number] [id number] [facility] St 00:00:00 00:00:00 AZALEA [id number] [facility], [id number] Memor ia [address] [id number] l [place] (LUF/LI AVE, V/SA) [place] [address] 2020-11-01 2020-11-01 NAUSEA E WANDA, [facility] 19502 [id number] [facility] [address] 00:27:00 03:55:00 WITH CLEMENT [facility], [facility] UNSPECIFIE [address] D [place] (LUF/LI AVE, V/[place]) [place] [address] 2020-11-01 2020-11-01 Inpatient [facility] [id number] [id number] [facility] St 00:00:00 00:00:00 AZALEA [id number] [facility], [id number] Memor ia [address] [id number] l [place] (LUF/LI AVE, V/SA) [place] [address] 2020-11-01 2020-11-01 Inpatient [facility] [id number] [id number] 00:00:00 00:00:00 AZALEA [id number] [facility], [id number] Memor ia [address] [id number] l [place] (LUF/LI AVE, V/SA) [place] [address] 2020-10-04 2020-10-05 OTHER E RODRICK, [facility] [id number] 23:32:00 01:00:00 CHRONIC JUAN [facility], Memoria [address] [place] (LUF/LI A[address], V/SA) [place] [address] 2020-10-04 2020-10-04 Inpatient [facility] b016 [id number] [facility] 00:00:00 00:00:00 AZALEA [id number] [facility], [id number] Memor ia [address] [id number] l [place] (LUF/LI AVE, V/SA) [place] [address] 2020-10-04 2020-10-04 Inpatient [facility] [id number] [id number] 00:00:00 00:00:00 AZALEA [id number]-4997-[id number] [facility], [id number] Memor ia [address] [id number] l [place] (LUF/LI AVE, V/[place]) [place] [address] 2020-09-18 2020-09-18 OTHER E [facility] [id number] 01:00:00 04:44:00 CHRONIC [facility] PAIN [facility] [address] [place] (LUF/LI AVE, V/SA) [place] [address] 2020-09-18 2020-09-18 Inpatient [facility] b80a [id number] 00:00:00 00:00:00 AZALEA [id number]-5 [facility], [id number] Memor ia [address] [id number] l [place] (LUF/LI AVE, V/SA) [place] [address] 2020-09-18 2020-09-18 Inpatient [facility] [id number] [id number] [facility] 00:00:00 00:00:00 AZALEA [id number] [facility], [id number] Memor ia [address] [id number] l [place] (LUF/LI AVE, V/SA) [place] [address] 2020-09-12 2020-09-12 ENDOMETRIO E KOSCIUK, [facility] [id number] [facility] 00:46:00 02:38:00 SIS JUAN [facility] U[place]PECIFIE [place], Memor ia D [address] [place] (LUF/LI A[address], V/SA) [place] [address] 2020-09-12 2020-09-12 Inpatient [facility] [id number] [id number] [facility] 00:00:00 00:00:00 AZALEA [id number]-[id number] [facility], [id number] Memor ia [address] [id number] l [place] (LUF/LI A[address], V/[place]) [place] [address] 2020-09-12 2020-09-12 Inpatient [facility] [id number] b59c-c [facility] 00:00:00 00:00:00 AZALEA [id number] [facility], [id number] Memor ia [address] [id number] l [place] (LUF/LI A[address], V/[place]) [place] [address] 2020-08-22 2020-08-22 OTHER E RODRICK, [facility] [id number] [facility] St 01:13:00 03:24:00 CHRONIC [facility] [place], Memoria [address], V/SA) [place] [address] 2020-08-22 2020-08-22 Inpatient [facility] [id number] [facility] 00:[facility]:00 00:00:00 AZALEA [id number] [facility], [id number] Mem[place] [address] [id number] [address] ([address], V/SA) [place] [address] 2020-08-22 2020-08-22 Inpatient [facility] [id number] [facility] 00:00:00 AZALEA [id number] [facility], [id number] Memor ia [id number] [address] ([address], V/SA) [place] [address] 2020-08-06 2020-08-06 Inpatient Jake MENSAH, [facility] [id number] 01:21:00 03:35:00 [facility] [address], V/SA) [place] [address] 2020-08-06 2020-08-06 Inpatient [facility] [id number] [facility] St 00:00:00 00:00:00 [place]ALEA [id number] [facility], [id number] Memor [place] [address] [id number] l [address] ([address], V/SA) [place] [address] 2020-07-19 2020-07-19 RIGHT Jake COTTON, [facility] [id number] [facility] St 07:50:00 11:20:00 [facility] PAIN [address], V/SA) [place] [address] 2020-07-19 2020-07-19 Inpatient [facility] [id number] [facility] St 00:00:00 00:00:00 AZALEA [id number] [facility], [id number] Mem[facility] ia [address] [id number] [address] ([address], V/SA) [place] [address] 2020-07-19 2020-07-19 Inpatient [facility] [id number] [facility] St 00:00:00 00:00:00 [place]ALEA [id number] [facility], [id number] [place] [address] [id number] l [address] ([address], V/SA) [place] [address] 2020-07-05 2020-07-05 OTHER E RODRICK, [facility] [id number] 02:42:00 05:00:00 CHRONIC [facility] [address], V/SA) [place] [address] 2020-07-05 2020-07-05 Inpatient [facility] [id number] [facility]:00 00:00:00 [place]ALEA [id number] [facility], [id number] Memor ia [address] [id number] [address] ([address], V/SA) [place] [address] 2020-07-05 2020-07-05 Inpatient [facility] [id number] [facility] 00:[facility]:00 00:00:00 AZALEA [id number] [facility], [id number] Mem[facility] [place] [address] [id number] [address] ([address], V/SA) [place] [address] 2020-06-10 2020-06-10 Outpatient [facility] [id number] Common 00:00:00 00:00:00 [facility] 2020-06-07 2020-06-07 Inpatient 1 COTTON, [facility] [place] [address] [id number] [facility] [address] 12:56:00 19:04:00 [facility] [address], V/SA) [place] [address] 2020-06-07 2020-06-07 Inpatient [facility] [id number] [facility] 00:[facility] 00:00:00 AZALEA [id number] [facility], [phone] Memor ia [id number] ([address]F/LI [address], V/SA) [place] [address] 2020-05-31 2020-05-31 Inpatient E COTTON, [facility] [place] [address] [id number] [facility] St 09:31:00 14:13:00 [facility] [address] ([address], V/SA) [place] [address] 2020-05-10 2020-05-10 Outpatient STLMLC STLMLC [id number] Common 00:00:00 00:00:00 [facility] 2020-05-09 2020-05-09 Outpatient STLMLC STLMLC [id number] Common 00:00:00 00:00:00 [facility] 2020-05-05 2020-05-05 Outpatient STLMLC STLMLC [id number] Common 00:00:00 00:00:00 [facility] 2020-05-02 2020-05-02 Outpatient STLMLC STLMLC [id number] Common 00:00:00 00:00:00 [facility] 2020-05-02 2020-05-02 Outpatient STLMLC STLMLC [id number] Common 00:00:00 00:00:00 [facility] 2020-04-29 2020-04-29 Outpatient STLMLC STLMLC [id number] Common 00:00:00 00:00:00 [facility] 2020-04-25 2020-04-25 LEFT LOWER E [facility] [id number] 16:46:00 21:30:00 [facility] [address] ([address], V/SA) [facility] [place] [address] 2020-04-22 2020-04-22 Outpatient STLMLC STLMLC [id number] Common 00:00:00 00:00:00 [facility] 2020-04-20 2020-04-20 PROC&TX [facility] [id number] 15:39:00 16:03:00 NOT [facility] OUT PT [address] ([address], V/SA) [place] [address] 2020-04-20 2020-04-20 Outpatient STLMLC STLMLC [id number] Common 00:00:00 00:00:00 [facility] 2020-04-20 2020-04-20 Outpatient STLMLC STLMLC [id number] Common 00:00:00 00:00:00 [facility] 2020-04-15 2020-04-15 Outpatient STLMLC STLMLC [id number] Common 00:00:00 00:00:00 [facility] 2020-04-13 2020-04-13 Outpatient STLMLC STLMLC [id number] Common 00:00:00 00:00:00 [facility] 2020-04-12 2020-04-12 Outpatient STLMLC STLMLC [id number] Common 00:00:00 00:00:00 [facility] 2020-04-11 2020-04-11 Outpatient STLMLC STLMLC [id number] Common 00:00:00 00:00:00 [facility] 2020-04-08 2020-04-08 Outpatient STLMLC STLMLC [id number] Common 00:00:00 00:00:00 [facility] 2020-04-06 2020-04-06 Outpatient STLMLC STLMLC [id number] Common 00:00:00 00:00:00 [facility] 2020-04-04 2020-04-04 Outpatient STLMLC STLMLC [id number] Common 00:00:00 00:00:00 [facility] 2020-03-31 2020-03-31 Outpatient STLMLC STLMLC [id number] Common 00:00:00 00:00:00 [facility] 2020-03-29 2020-03-29 Outpatient GEOVANI BLAS [facility] [id number] 00:00:00 00:00:00 PRAVEEN payton 2020-03-29 2020-03-29 Outpatient STLMLC STLMLC [id number] Common 00:00:00 00:00:00 [facility] 2020-03-28 2020-03-28 Outpatient STLMLC STLMLC [id number] Common 00:00:00 00:00:00 [facility] 2020-03-22 2020-03-22 Outpatient STLMLC STLMLC [id number] Common 00:00:00 00:00:00 [facility] 2020-03-21 2020-03-21 Outpatient STLMLC STLMLC [id number] Common 00:00:00 00:00:00 [facility] 2020-03-20 2020-03-20 FEDE COTTON, [facility] [id number] [facility] St 17:08:00 22:56:00 ABDOMINAL REHAN [place]ALEA Luke s [place]IN [place], [facility] UNSPECIFIE [address] ([address], V/SA) [place] [address] 2020-03-14 2020-03-17 CELLULITIS E RIVERA, [facility] [id number] 14:54:00 11:30:00 OF RESTORATIONISM [facility]OM[facility]AL [place] [address], V/SA) [place] [address] 2020-03-03 2020-03-03 [facility] [id number] Common 13:33:00 13:33:00 Clinics [facility] 2020-03-02 2020-03-02 FE RYAN WOLFE, [facility] [id number] 05:58:00 15:35:00 PERITON LIZBETH [facility] [address] ([address], V/SA) [place] [address] 2020-03-02 2020-03-02 Outpatient [facility] [id number] Common 00:00:00 00:00:00 [facility] 2020-03-01 2020-03-01 [facility] [id number] Common 09:15:00 09:15:[address] [facility] 2020-02-29 2020-02-29 [facility] [id number] Common 09:30:00 09:30:[address] [facility] 2020-02-25 2020-02-27 LOWER E YURY, [facility] [place] [id number] 13:21:00 12:09:00 ABDOMINAL [facility] UNSPECIFIE [address] ([address], V/SA) [facility] [address] 2020-02-25 2020-02-25 UNSPECIFIE E KOSCIUK, [facility] [id number] [facility] 00:40:00 05:00:00 D JUAN [facility] ABDOMINAL [place], [facility] a PAIN [address] ([address], V/SA) [place] [address] 2020-01-25 2020-01-25 LOW BACK 1 COTTON, [facility] [place] [id number] [facility] 11:28:00 13:15:00 PAIN REHAN [facility] [place], Memoria [address] ([address], V/SA) [place] [address] 2020-01-18 2020-01-18 Outpatient [facility] [id number] Common 11:45:00 11:45:00 Clinics [facility] 2019-12-09 2019-12-09 OTHER E [facility] [id number] 03:03:00 05:08:00 CHRONIC [facility] PAIN [place], Memoria [address] ([address], V/SA) [place] [address] 2019-11-24 2019-11-24 UNSPECIFIE E [facility] [id number] 00:31:00 05:30:00 D [facility] ABDOMINAL [place], Memori a PAIN [address] ([address], V/SA) [place] [address] 2019-10-07 2019-10-07 RIGHT 1 COTTON, [facility] [id number] 20:35:00 23:10:00 LOWER [facility] QUADRANT [place], Memoria PAIN [address] ([address], V/SA) [place] [address] 2019-09-20 2019-09-20 RIGHT 1 COTTON, [facility] [id number] 00:33:00 04:23:00 LOWER [facility] QUADRANT [place], [facility] [address], V/SA) [place] [address] 2019-08-17 2019-08-17 UNSPECIFIE 1 TRUX, [facility] [id number] 02:18:00 04:45:00 D RESTORATIONISM [facility] ABDOMINAL [place], Memori a PAIN [address] ([address], V/SA) [place] [address] 2019-04-22 2019-04-22 Outpatient [facility] [id number] Common 12:03:00 12:03:00 Clinics [facility] 2019-04-14 2019-04-14 [facility] [id number] Common 16:12:00 16:12:00 Clinics [facility] 2019-04-06 2019-04-06 Outpatient [facility] [id number] Common 12:16:00 12:16:00 Clinics [facility] 2019-03-31 2019-03-31 Outpatient [facility] [id number] Common 14:00:00 14:00:[address] [facility] 2018-12-07 2018-12-07 UNSPECIFIE 1 QUINTIN BRITO [facility] [id number] [facility] St 01:06:00 04:45:00 D OVARIAN [place] Luke s CYST RIGHT [facility] SIDE [address] ([address], V/SA) [place] [address] 2018-10-29 2018-10-29 N-PRSS CHR BLAKESTAD, [facility] [id number] [facility] St 06:59:00 23:59:00 [facility]CR [facility]IN [facility] [address], V/SA) [place] [address] 2018-10-22 2018-10-22 N-PRSS CHR [place], [facility] [id number] [facility] St 07:20:00 23:59:00 ULCR SKIN MIKY [facility] [address] ([address], V/SA) [place] [address] 2018-10-15 2018-10-15 N-PRSS CHR O [place], [facility] [id number] [facility] St 07:08:00 23:59:00 ULCR SKIN MIKY [facility] [address] ([address], V/SA) [place] [address] 2018-09-30 2018-10-01 INFCT FOL 1 SHABNAM, [facility] [id number] [facility] 18:46:00 01:05:00 PRC SUPF DIMAS [facility] INC SRG [facility] SIT INIT [address] ([address], V/SA) [place] [address] 2018-09-01 2018-09-01 OTH 1 WANDA, [facility] [place] [id number] 09:12:00 14:00:00 NONINFL CLEMENT [facility] D/O OVARY [place], [facility] TUBE&BRD [address] ([address]F/LI A[address], V/SA) [place] [address] 2018-05-13 2018-05-13 Inpatient 1 WANDA, [facility] [place] [id number] 10:52:00 13:46:00 CLEMENT [facility] [address] ([address], V/SA) [place] [address] 2017-12-24 2017-12-24 UNSPECIFIE 1 QUINTIN BRITO [facility] [id number] [facility] St 07:51:00 13:52:00 D OVARIAN [facility] CYST RIGHT [place], [facility] SIDE [address] ([address], V/SA) [place] [address] 2017-06-20 2017-06-21 HYDRONPHRO 1 SANALETA, [facility] [place] [address] [id number] [facility] St 23:01:00 03:55:00 S JUAN [facility] RENL&URETR [place], [facility] L CALCUL [address] ([address]F/[address], V/SA) [place] [address] 2017-05-13 2017-05-13 OTHER 3 MERLE, [facility] [id number] 15:40:00 23:59:00 FATIGUE ASA [facility] [address] ([address], V/SA) [place] [address] Results Test Description Test Time Test Comments Results Result Comments Source POCT MOLECULAR FLU 2021-11-29 22:58:14 Test Item Value Reference Range Interpretation Comme nts POCT Molecular FluA (test code = 33912-1) Negative Negative POCT Molecular FluB (test code = 07920-1) Negative Negative Lab Interpretation (test code = 29014-6) Normal [facility]2021-10-16 13:57:00 Test Item Value Reference Range Interpretation Comments T Protein (test code = TP) 7.1 gm/dl 6.4-8.2 Albumin (test code = ALB) 3.4 gm/dl 3.4-5.0 AST (SGOT) (test code = AST) 20 U/L 15-37 ALT (SGPT) (test code = ALT) 28 U/L 13-61 Alkaline Phos (test code = ALKP) 90 U/L 45-117 Total Bilirubin (test code = TBIL) 0.2 mg/dl 0.2-1.0 Direct Bilirubin (test code = <0.1 mg/dl 0.0-0.2 N DBIL) Indirect Bilirubin (test code = 0.2 mg/dl 0.0-1.1 IBIL) [id number] 13:57:00 Test Item Value Reference Range Interpretation Comments Lipase (test code = LIPA) 114 U/L 73-393 AMYLASE, [id number] 13:57:00 Test Item Value Reference Range Interpretation Comments Amylase (test code = AMYL) 51 U/L 25-115 STAT LAB CHEM [id number] 22:45:00 Test Item Value Reference Range Interpretation Comments Sodium (test code = NA) 135 mmol/l 138-146 L Potassium (test code = K) 4.2 mmol/l 3.5-4.9 IONIZED CALCIUM (test code = ICA) 1.12 1.12-1.32 AA Chloride (test code = CL) 106 mmol/l 98-109 Glucose (test code = GLU) 94 mg/dl 70-105 Creatinine (test code = CREA) 0.7 mg/dl 0.6-1.3 BUN (test code = BUN) 14 mg/dl 6-17 CO2 (test code = CO2) 22.1 mmol/l 24.0-29.0 L STAT LAB CBC WITH AUTO [id number] 22:43:00 Test Item Value Reference Range Interpretation Comments WBC (test code = WBC) 8.66 10\\S\\3/ul 4.80-10.80 RBC (test code = RBC) 4.17 10\\S\\6/ul 4.20-5.40 L Hemoglobin (test code = HGB) 12.1 gm/dl 12.0-14.0 Hematocrit (test code = HCT) 36.5 % 37.0-47.0 L MCV (test code = MCV) 87.5 fL 81.0-99.0 MCH (test code = MCH) 29.0 pg 27.0-31.0 MCHC (test code = MCHC) 33.2 gm/dl 33.0-37.0 Platelet (test code = PLT) 262 10\\S\\3/ul 130-400 RDW (test code = RDWVC) 13.6 % 11.5-14.5 MPV (test code = MPV) 8.7 fL 7.4-10.4 A NE% (test code = NE) 58.6 % 42.0-75.0 LY% (test code = LY) 32.0 % 13.0-42.0 MO% (test code = MO) 5.7 % 4.0-14.0 EO% (test code = EO) 3.3 % 1.0-3.0 H BA% (test code = BA) 0.2 % 1.0-3.0 L IG% (test code = IG%) 0.2 % 0.0-0.4 HEPATIC FUNCTION [id number] 13:03:00 Test Item Value Reference Range Interpretation Comments TOTAL PROTEIN (test code = PROT) 7.6 G/DL 6.4-8.2 N ALBUMIN (test code = ALB) 3.5 G/DL 3.4-5.0 N BILIRUBIN TOTAL (test code = 0.20 MG/DL 0.2-1.2 N BILT) BILIRUBIN DIRECT (test code = < 0.10 MG/DL 0.00-0.30 N BILD) BILIRUBIN INDIRECT (test code = 0.10 MG/DL 0.2-1.2 L BILIND) SGOT/AST (test code = AST) 19 Unit/L 15-37 N SGPT/ALT (test code = ALT) 26 Unit/L 12-78 N ALKALINE PHOSPHATASE TOTAL (test 96 Unit/L 45-117 N code = ALKP) [id number] 13:03:00 Test Item Value Reference Range Interpretation Comments LIPASE (test code = LIP) 83 Unit/L 114-286 L BASIC METABOLIC [id number] 13:03:00 Test Item Value Reference Range Interpretation Comments SODIUM (test code = NA) 138 mmol/L 134-147 N POTASSIUM (test code = 4.1 mmol/L 3.4-5.0 N K) CHLORIDE (test code = 106 mmol/L 100-108 N CL) CARBON DIOXIDE (test 25 mmol/L 21-32 N code = CO2) ANION GAP (test code = 7.0 GAP calc 4.0-15.0 N GAP) GLUCOSE (test code = 90 MG/DL 70-110 N GLU) BLOOD UREA NITROGEN 11 MG/DL 7-18 N (test code = BUN) GLOMERULAR FILTRATION >=60 max estimate >60 RATE (test code = GFR) estGFR CREATININE (test code = 0.6 MG/DL 0.6-1.0 N CREAT) CALCIUM (test code = CA) 9.0 MG/DL 8.5-10.1 N UA RFLX MICR CULT IF [id number] 12:44:00 Test Item Value Reference Range Interpretation Comments UA COLOR (test code = COLU) YELLOW discript YEL/STRAW UA APPEARANCE (test code = CLEAR discript CLEAR APPU) UA GLUCOSE DIPSTICK (test NEGATIVE mg/dL NEG code = DGLUU) UA BILIRUBIN DIPSTICK (test NEGATIVE mg/dL NEG code = BILU) UA KETONE DIPSTICK (test NEGATIVE mg/dL NEG code = KETU) UA SPECIFIC GRAVITY (test 1.020 SG 1.005-1.030 code = SGU) UA BLOOD DIPSTICK (test NEGATIVE mg/DL NEG code = SARA) UA PH DIPSTICK (test code = 6.5 pH UNITS 5.0-7.0 LORETTA) UA PROTEIN DIPSTICK (test NEGATIVE mg/dL NEG code = PROU) UA UROBILINIOGEN DIPSTICK 0.2 mg/dL <2.0 (test code = URO) UA NITRITE DIPSTICK (test NEGATIVE SCREEN NEG code = ISAAK) UA LEUKOCYTE ESTERASE NEGATIVE Leuk/mcL NEGATIVE DIPSTICK (test code = LEUU) UA CULTURE NEEDED? (test Criteria Culture CHK code = UACULT) Indication for culture: Dysuria/FrequencySOURCE OF URINE: CLEAN CATCH- CT ABD PELVIS [id number] 12:27:00 [facility] 1985 Sex: F Name: LAUREN BETH [facility] : 1985 Age/S: 36 / F [address] [place] Unit #: [id number] Loc: [place] [address] Phys: Marco Hilton NP Acct: [id number] Dis Date: Status: REG ER PHONE #: [phone] Exam Date: 08/07/2021 1223 FAX #: Reason: LLQ ABD PAIN EXAMS: CPT: [id number] CT ABD PELVIS W/CONT 10086 EXAM: CT ABDOMEN AND PELVIS WITH CONTRAST. INDICATION: Left lower quadrant pain COMPARISON: December 13, 2020 TECHNIQUE: Axial CT imaging of the abdomen and pelvis was obtained after the administration of intravenous contrast. Coronal and sagittal reformatted images were submitted for review. IV contrast: 100 mL of Isovue-300 DLP: 506.52 mGy-cm FINDINGS: The heart size is normal. The lung bases are clear. No pericardial or pleural effusion is identified. The liver, spleen, pancreas, and adrenal glands is unremarkable. No focal liver lesions are identified. There has been prior cholecystectomy. No intrahepatic biliary duct dilatation. The main portal vein is patent and normal in size. The kidneys are normal in size. No hydronephrosis or nephrolithiasis is identified. The urinary bladder is decompressed. There are postsurgical changes involving the stomach. The small bowel, and large bowel are normal in appearance. No bowel obstruction is identified. No lymphadenopathy is identified in the abdomen or pelvis.No free fluid or free air. The IVC is normal. The abdominal aorta is normal in course and caliber. There has been prior hysterectomy. No adnexal mass. No acute osseous abnormality is identified. IMPRESSION: No acute abnormality in the abdomen or pelvis. No bowel obstruction. LOCATION: B2 This CT exam was performed according to our departmental dose optimization program, which includes automated exposure control, adjustment of the mA and or kV according to patient size and/or useof iterative reconstruction technique. PAGE 1 Signed Report (CONTINUED) Name: LAUREN BETH [facility] : 1985 Age/S: 36 / F [address] Unit #: [id number] Loc: [place] [address] Phys: Marco Hilton NP Acct: [id number] Dis Date: Status: REG ER PHONE #: [phone] Exam Date: 08/07/2021 1223 FAX #: Reason: LLQ ABD PAIN EXAMS: CPT: [id number] CT ABD PELVIS W/CONT 31579 <Continued> at 1227 Reported and signed by: Alma Cartwright M.D. CC: Olga Clements DO; Marco Hilton NP Technologist:RT Danyelle(R) CTDI: DLP: Trnscb Date/Time: 08/07/2021 (1227) [email or web address] Orig Print D/T: S: 08/07/2021 (5947) PAGE 2 Signed ReportCBC W/AUTO [id number] 12:23:00 Test Item Value Reference Range Interpretation Comments WHITE BLOOD CELL (test code = 8.7 K/mm3 3.5-11.0 N WBC) RED BLOOD CELL (test code = 4.43 M/mm3 4.70-6.10 L RBC) HEMOGLOBIN (test code = HGB) 12.8 G/DL 10.4-14.9 N HEMATOCRIT (test code = HCT) 37.8 % 31.5-44.1 N MEAN CELL VOLUME (test code = 85.3 Fl 84.5-98.6 N MCV) MEAN CELL HGB (test code = MCH) 28.9 pg 27.0-34.2 N MEAN CELL HGB CONCETRATION 33.9 G/DL 31.5-34.0 N (test code = MCHC) RED CELL DISTRIBUTION WIDTH 13.8 SD 11.5-14.5 N (test code = RDW) PLATELET COUNT (test code = 322 K/mm3 150-450 N PLT) MEAN PLATELET VOLUME (test code 8.90 fL 7.0-10.5 N = MPV) NEUTROPHIL % (test code = NT%) 68.6 % 40-76 N IMMATURE GRANULOCYTE % (test 0.3 % 0.0-5.0 N code = IG%) LYMPHOCYTE % (test code = LY%) 24.7 % 20.5-51.1 N MONOCYTE % (test code = MO%) 5.0 % 1.7-9.3 N EOSINOPHIL % (test code = EO%) 1.1 % 0.0-6.0 N BASOPHIL % (test code = BA%) 0.3 % 0.0-2.0 N NUCLEATED RBC % (test code = 0.0 /100WBC% 0.0-1.0 N NRBC%) NEUTROPHIL # (test code = NT#) 6.0 K/mm3 1.8-7.6 N IMMATURE GRANULOCYTE # (test 0.03 x10 3/uL 0.00-0.03 N code = IG#) LYMPHOCYTE # (test code = LY#) 2.2 K/mm3 0.6-3.2 N MONOCYTE # (test code = MO#) 0.4 K/mm3 0.3-1.1 N EOSINOPHIL # (test code = EO#) 0.1 K/mm3 0.0-0.4 N BASOPHIL # (test code = BA#) 0.0 K/mm3 0.0-0.1 N NUCLEATED RBC # (test code = 0.0 K/mm3 0.0-0.1 N NRBC#) MANUAL DIFF REQUIRED (test code NO DIFF/SCN CRITERIA = MDIFF) CORONAVIRUS 2019 (IN [place])(3HR)2021-03-24 17:04:00 Test Item Value Reference Range Interpretation Comments FT (test code Negative Negative N The BioGX SARS -CoV-2 = COVID) (qualifier value) Reagents f or BD MAX System, the Bio Fire Covid-19, and t he Cepheid Covid-1 9 is for in vitro us e under FDA Emergency U se Authorization o nly. Each method ab ove is a rapid, real t carlito PCR (RT-PCR) molec ular test used for t yuan qualitative det ection of nucleic acid from the SARS-CoV-2 in upper respirato ry specimens colle cted from individual s suspected of CO VID-19. For questions regarding your test results, please contact the [facility] at [phone]. [id number] 12:37:00 Test Item Value Reference Range Interpretation Comments Sodium (test code = 138 mmol/l 136-146 NA) Potassium (test 4.0 mmol/l 3.5-5.1 code = K) Chloride (test code 107 mmol/l 98-107 = CL) Calcium (test code 8.5 mg/dl 8.5-10.1 = CALC) CO2 (test code = 24 mmol/l 21-32 CO2) Glucose (test code 81 mg/dl 74-106 = GLU) BUN (test code = 9.0 mg/dl 7.0-18.0 BUN) Creatinine (test 0.6 mg/dl 0.5-1.3 code = CREA) EGFR if >60 Turkish (test code mL/min/1.73m\\ = EGFRAA) S\\2 EGFR if Non- >60 Estimate d Glomerular Turkish (test code mL/min/1.73m\\ Filtrat ion Rate (eGFR) = EGFRNA) S\\2 Reference Inter vals Decision Points for 18 years and older and average body ma ss: >= 60 Does not exc lude kidney disease. 30 - 59 Suggests modera te chronic kidney disease and indicat es the need for furthe r investigation including asses sment of proteinuria and cardiovascular factors. < 30 Usually in dicates a need for refe rral for assessment and management of c hronic kidney failure. STAT LAB [id number] 12:11:00 Test Item Value Reference Range Interpretation Comments Troponin-I (test 0.00 ng/ml 0.00-0.08 The 99th Pe rcentile URL is code = TROP) 0.08 ng/mL for the [employer] i[employer] Troponin I. The Joint Society of Cardiology/[place] [place] College of Card iology (ESC/ACC) and t he National Academy of Clin ical Biochemistry [facility] Pr[facility] tices (NACB) recommen ds that the diagnosis of AM I includes the presence of clinical history suggest kieran of Acute Coronary Syndrome (ACS) and a max imum concentration o f cardiac troponin exceed ing the 99th percentile of a normal referenc e population [upp er reference limit (URL)] on at least one oc casion during the firs t 24 hours after the clini felipa event. [id number] 12:09:00 Test Item Value Reference Range Interpretation Comments aPTT (test code = PTT) 22.3 seconds 23.9-30.7 L PT AND [id number] 12:09:00 Test Item Value Reference Range Interpretation Comments Protime (test code 9.5 seconds 9.5-12.1 = PT) INR (test code = 0.9 0.9-1.1 INR results are intended INR) ONLY to monitor Oral Anticoagulant t herapy in stablized pa tients. The INR Therape utic Range is 2.0 - 3.0 Patients with a mechanical hear t, the INR Range is 2. 5 - 3.5 STAT LAB CBC WITH AUTO [id number] 11:57:00 Test Item Value Reference Range Interpretation Comments WBC (test code = WBC) 7.07 10\\S\\3/ul 4.80-10.80 RBC (test code = RBC) 4.21 10\\S\\6/ul 4.20-5.40 Hemoglobin (test code = HGB) 12.0 gm/dl 12.0-14.0 Hematocrit (test code = HCT) 36.2 % 37.0-47.0 L MCV (test code = MCV) 86.0 fL 81.0-99.0 MCH (test code = MCH) 28.5 pg 27.0-31.0 MCHC (test code = MCHC) 33.1 gm/dl 33.0-37.0 Platelet (test code = PLT) 264 10\\S\\3/ul 130-400 RDW (test code = RDWVC) 13.2 % 11.5-14.5 MPV (test code = MPV) 8.7 fL 7.4-10.4 A NE% (test code = NE) 63.8 % 42.0-75.0 LY% (test code = LY) 29.4 % 13.0-42.0 MO% (test code = MO) 5.1 % 4.0-14.0 EO% (test code = EO) 1.1 % 1.0-3.0 BA% (test code = BA) 0.3 % 1.0-3.0 L IG% (test code = IG%) 0.3 % 0.0-0.4 XR CHEST AP/PA 1 [id number] 11:33:32 [facility] ([facility])Name: LAUREN BETH : 1985 Sex: FProcedure: XR CHEST AP/PA 1 VIEWOrder Date: 03/24/2021 10:57 AMOrdering Provider: REHAN Farrellinical Indication: [id number]: DyspneaComparison: September 30, 2018Findings:Cardiac size is normal.Pulmonary vasculature is normal.Mediastinal contour is normal.Aortic contour is normal.No acute infiltrates or effusions.There is no mass or pneumothorax.There is no evidence of active tube rculosis.There is no acute skeletal abnormality.Impression: Negative AP view of the chest.This finalreport was electronically signed by Dr Farzad Dewitt MD 111:28 AMDictated By: AMANDA DEWITT.Date: 03/24/2021 11:28CULTURE, [id number] 08:00:00Specimen: Urine SpecimensCollected: 03/10/2021 11:50 Status: Final Last Updated: 03/12/2021 08:00 CULTURE (Final) (Final) Very Few Mixed Body Gabriela Isolated No Pathogens IsolatedURINALYSIS WITH [id number] 12:57:00 Test Item Value Reference Range Interpretation Comments Color (test code = Light-Yellow UCOLR) Clarity (test code = Cloudy UCLAR) Glucose (test code = NEGATIVE NEGATIVE N UGLUC) Bilirubin (test code NEGATIVE NEGATIVE N = UBILI) Ketones (test code = NEGATIVE NEGATIVE N UKET) Specific [place] 1.015 1.005-1.030 A (test code = USPGR) Blood (test code = NEGATIVE NEGATIVE N UBLD) PH (test code = UPH) 7.0 4.5-8.0 A Protein (test code = NEGATIVE NEGATIVE N UPROT) Urobilinogen (test 0.2 See_Comment N [Automat ed message] code = U UROB) The system [employer] generated this result transmit michael reference range : 0.2. The refere nce range was not u sed to interpret th is result as normal/abnormal . Nitrite (test code = NEGATIVE NEGATIVE N UNITR) Leukocyte Esterase NEGATIVE NEGATIVE N (test code = ULEUK) RBC (test code = 2-5 0-5 A RBCUR) WBC (test code = 11-20 0-5 A WBCUR) Bacteria (test code = 4+ None Seen,Trace A UBACT) Mucous (test code = TRACE None Seen A UMUC) Squamous Epithelial TNTC 0-10 A (test code = SQEP) Non-squamous 3 NONE SEEN A Epithelial (test code = NSE) STAT LAB CBC WITH AUTO [id number] 12:10:00 Test Item Value Reference Range Interpretation Comments WBC (test code = WBC) 7.95 10\\S\\3/ul 4.80-10.80 RBC (test code = RBC) 4.18 10\\S\\6/ul 4.20-5.40 L Hemoglobin (test code = HGB) 12.0 gm/dl 12.0-14.0 Hematocrit (test code = HCT) 36.2 % 37.0-47.0 L MCV (test code = MCV) 86.6 fL 81.0-99.0 MCH (test code = MCH) 28.7 pg 27.0-31.0 MCHC (test code = MCHC) 33.1 gm/dl 33.0-37.0 Platelet (test code = PLT) 243 10\\S\\3/ul 130-400 RDW (test code = RDWVC) 12.9 % 11.5-14.5 MPV (test code = MPV) 8.8 fL 7.4-10.4 A NE% (test code = NE) 69.1 % 42.0-75.0 LY% (test code = LY) 24.3 % 13.0-42.0 MO% (test code = MO) 4.7 % 4.0-14.0 EO% (test code = EO) 0.8 % 1.0-3.0 L BA% (test code = BA) 0.3 % 1.0-3.0 L IG% (test code = IG%) 0.8 % 0.0-0.4 H STAT LAB CHEM [id number] 12:08:00 Test Item Value Reference Range Interpretation Comments Sodium (test code = NA) 139 mmol/l 138-146 Potassium (test code = K) 4.2 mmol/l 3.5-4.9 Chloride (test code = CL) 105 mmol/l 98-109 IONIZED CALCIUM (test code = ICA) 1.10 1.12-1.32 AA CO2 (test code = CO2) 24 mmol/l 24-29 Glucose (test code = GLU) 88 mg/dl 70-105 BUN (test code = BUN) 9 mg/dl 6-17 Creatinine (test code = CREA) 0.5 mg/dl 0.6-1.3 L CULTURE, [id number] 08:26:00Specimen: Urine SpecimensCollected: 02/23/2021 08:35 Status: Final Last Updated: 02/24/2021 08:26 CULTURE (Final) (Final) Many Mixed Body Gabriela Isolated No Pathogens IsolatedCT ABDOMEN/PELVIS [id number] 11:40:43 [facility] ([facility])Name: LAUREN BETH : 1985 Sex: FProcedure: CT ABDOMEN/PELVIS W/CONTRASTOrder date: 02/23/2021 10:08 AMOrdering Provider: REHAN Farrellinical Indication: [id number]: Right lower quadrant painComparison: November 14, 2020Technique: Multiple axial helical CT images of the abdomen and pelvis wereobtained with IV contrast. Coronal and sagittal reformatted images were alsoobtained.This exam was performed according to the our departmental dose-optimizationprogram which includes automated exposure control, adjustment of the mA and/orkV according to patient size and/or use of iterative reconstruction techniques.Findings:Lung bases are clear and the heart apex within normal limits. No inferiormediastinal abnormality. Inferior osseous structures of the thorax areunremarkable.Hepatic steatosis solid abdominal viscera are unremarkable. Status post gastricsleeve procedure. Otherwise, the stomach and bowel are within normal limits.No peritoneal or retroperitoneal masses or adenopathy. No free fluid orpneumoperitoneum.Status post appendectomy.Urinary bladder is unremarkable. No pelvic masses or adenopathy seen. Perirectalfat planes are preserved.Osseous structures of the abdomen and pelvis are nonacute.Impression:1. Nonacute CT of the abdomen and pelvis with IV contrast.2. Hepatic steatosis.3. Postoperative changes as above.This final report was electronically signed by Dr Wiley Velázquez MD 111:35 AMDictated By: WILEY VELÁZQUEZDate: 02/23/2021 11:[id number] 10:44:00 Test Item Value Reference Range Interpretation Comments Lipase (test code = LIPA) 86 U/L 73-393 URINALYSIS WITH [id number] 08:58:00 Test Item Value Reference Range Interpretation Comments Color (test code = Light-Yellow UCOLR) Clarity (test code = Clear UCLAR) Glucose (test code = NEGATIVE NEGATIVE N UGLUC) Bilirubin (test code NEGATIVE NEGATIVE N = UBILI) Ketones (test code = NEGATIVE NEGATIVE N UKET) Specific [place] 1.020 1.005-1.030 A (test code = USPGR) Blood (test code = NEGATIVE NEGATIVE N UBLD) PH (test code = UPH) 6.0 4.5-8.0 A Protein (test code = NEGATIVE NEGATIVE N UPROT) Urobilinogen (test 0.2 See_Comment N [Automat ed message] code = U UROB) The system [facility] generated this result transmit michael reference range : 0.2. The refere nce range was not u sed to interpret th is result as normal/abnormal . Nitrite (test code = NEGATIVE NEGATIVE N UNITR) Leukocyte Esterase NEGATIVE NEGATIVE N (test code = ULEUK) RBC (test code = 2-5 0-5 A RBCUR) WBC (test code = 0-1 0-5 A WBCUR) Bacteria (test code = TRACE None Seen,Trace A UBACT) Mucous (test code = TRACE None Seen A UMUC) Squamous Epithelial 41-50 0-10 A (test code = SQEP) STAT LAB CBC WITH AUTO [id number] 08:52:00 Test Item Value Reference Range Interpretation Comments WBC (test code = WBC) 6.36 10\\S\\3/ul 4.80-10.80 RBC (test code = RBC) 4.21 10\\S\\6/ul 4.20-5.40 Hemoglobin (test code = HGB) 12.2 gm/dl 12.0-14.0 Hematocrit (test code = HCT) 36.3 % 37.0-47.0 L MCV (test code = MCV) 86.2 fL 81.0-99.0 MCH (test code = MCH) 29.0 pg 27.0-31.0 MCHC (test code = MCHC) 33.6 gm/dl 33.0-37.0 Platelet (test code = PLT) 225 10\\S\\3/ul 130-400 RDW (test code = RDWVC) 12.9 % 11.5-14.5 MPV (test code = MPV) 9.9 fL 7.4-10.4 A NE% (test code = NE) 65.0 % 42.0-75.0 LY% (test code = LY) 27.8 % 13.0-42.0 MO% (test code = MO) 5.5 % 4.0-14.0 EO% (test code = EO) 1.1 % 1.0-3.0 BA% (test code = BA) 0.3 % 1.0-3.0 L IG% (test code = IG%) 0.3 % 0.0-0.4 STAT LAB CHEM [id number] 08:52:00 Test Item Value Reference Range Interpretation Comments Sodium (test code = NA) 138 mmol/l 138-146 Potassium (test code = K) 6.0 mmol/l 3.5-4.9 H Chloride (test code = CL) 104 mmol/l 98-109 IONIZED CALCIUM (test code = ICA) 1.03 1.12-1.32 AA CO2 (test code = CO2) 26 mmol/l 24-29 Glucose (test code = GLU) 116 mg/dl 70-105 H BUN (test code = BUN) 9 mg/dl 6-17 Creatinine (test code = CREA) 0.6 mg/dl 0.6-1.3 STAT LAB CBC WITH AUTO [id number] 02:37:00 Test Item Value Reference Range Interpretation Comments WBC (test code = 7.85 10\\S\\3/ul 4.80-10.80 WBC) RBC (test code = 4.25 10\\S\\6/ul 4.20-5.40 RBC) Hemoglobin (test 12.1 gm/dl 12.0-14.0 code = HGB) Hematocrit (test 36.1 % 37.0-47.0 L code = HCT) MCV (test code = 84.9 fL 81.0-99.0 MCV) MCH (test code = 28.5 pg 27.0-31.0 MCH) MCHC (test code = 33.5 gm/dl 33.0-37.0 MCHC) Platelet (test code 282 10\\S\\3/ul 130-400 = PLT) RDW (test code = 12.7 % 11.5-14.5 RDWVC) MPV (test code = 8.7 fL 7.4-10.4 A MPV) NE% (test code = 57.3 % 42.0-75.0 NE) LY% (test code = 35.0 % 13.0-42.0 LY) MO% (test code = 5.5 % 4.0-14.0 MO) EO% (test code = 1.3 % 1.0-3.0 EO) BA% (test code = 0.3 % 1.0-3.0 L BA) IG% (test code = 0.6 % 0.0-0.4 H IG%) Neutrophils (test 55 % 42-75 No previou s value code = NEUTR) was reported. A value of 55 was entered by [id number] on 01/10/2021 02:3 7 Lymphocytes (test 43 % 13-42 H No previou s value code = LYMPH) was reported. A value of 43 was entered by [id number] on 01/10/2021 02:3 7 Monocytes (test 1 % 4-14 L No previous value code = MONOS) was reported. A value of 1 was entered by [id number] on 01/10/2021 02:3 7 Basophils (test 1 % 0-1 No previous value code = BASO) was reported. A value of 1 was entered by [id number] on 01/10/2021 02:3 7 Normal Morphology Normal WBC RBC Normal RBC \\T\\ N No pre vious value (test code = NRCM) and Platelet WBC was repor michael. A Morphology Morphology,Normal value of N ormal WBC RBC and WBC RBC and Platelet Platelet Morphology Morphology was entered by [id number] on 01/10/2021 02:3 7 AMYLASE, [id number] 02:14:00 Test Item Value Reference Range Interpretation Comments Amylase (test code = AMYL) 46 U/L 25-115 [id number] 02:14:00 Test Item Value Reference Range Interpretation Comments Lipase (test code = LIPA) 115 U/L 73-393 URINALYSIS WITH [id number] 02:07:00 Test Item Value Reference Range Interpretation Comments Color (test code = Light-Yellow UCOLR) Clarity (test code = Cloudy UCLAR) Glucose (test code = NEGATIVE NEGATIVE N UGLUC) Bilirubin (test code NEGATIVE NEGATIVE N = UBILI) Ketones (test code = NEGATIVE NEGATIVE N UKET) Specific [place] 1.025 1.005-1.030 A (test code = USPGR) Blood (test code = NEGATIVE NEGATIVE N UBLD) PH (test code = UPH) 6.0 4.5-8.0 A Protein (test code = NEGATIVE NEGATIVE N UPROT) Urobilinogen (test 0.2 See_Comment N [Automat ed message] code = U UROB) The system [facility] generated this result transmit michael reference range : 0.2. The refere nce range was not u sed to interpret th is result as normal/abnormal . Nitrite (test code = NEGATIVE NEGATIVE N UNITR) Leukocyte Esterase NEGATIVE NEGATIVE N (test code = ULEUK) RBC (test code = 6-10 0-5 A RBCUR) WBC (test code = 2-5 0-5 A WBCUR) Bacteria (test code = 4+ None Seen,Trace A UBACT) Mucous (test code = MODERATE None Seen A UMUC) Squamous Epithelial TNTC 0-10 A (test code = SQEP) Non-squamous 1 NONE SEEN A Epithelial (test code = NSE) STAT LAB CHEM [id number] 01:50:00 Test Item Value Reference Range Interpretation Comments Sodium (test code = NA) 140 mmol/l 138-146 Potassium (test code = K) 3.4 mmol/l 3.5-4.9 L Chloride (test code = CL) 104 mmol/l 98-109 IONIZED CALCIUM (test code = ICA) 1.12 1.12-1.32 AA CO2 (test code = CO2) 22 mmol/l 24-29 L Glucose (test code = GLU) 156 mg/dl 70-105 H BUN (test code = BUN) 12 mg/dl 6-17 Creatinine (test code = CREA) 0.6 mg/dl 0.6-1.3 - CT ABD PELVIS [id number] 03:46:00 [facility] WOODName: LAUREN BETH : 1985 Sex: F FAX: Annemarie Tesfaye [phone] [place]: St: REG Name: LAUREN BETH [facility] Fi[place]lla : 1985 Age/S: 35/F [address] Unit: [id number] Loc: [place] [address] Phys: Zan Tesfaye [employer] Acct: [id number] Dis Date: Status: REG ER PHONE #: [phone] Exam Date: 12/13/2020 0325 FAX #: [phone] Reason: DIFFUSE ABD PAIN WORSE RLQ, HX APPY, ROSE EXAMS: CPT CODE: [id number] CT ABD PELVIS W/CONT 38710 AFTER HOURS SERVICE ON: 12/13/2020 3:[address] Scan of the Abdomen and Pelvis With Contrast Location Code M12 History: DIFFUSE ABD PAIN WORSE RLQ, HX APPY, ROSE Technique: Axial and reconstructed coronal scans were performed on a helical scanner post IV contrast. One or more ofthe following dose reduction techniques were used: Automated exposure control, adjustment of the mA and/or kV according to patient size, and/or utilization of iterative reconstruction technique. Findings: LIVER: No significant findings. GALLBLADDER/BILIARY: Cholecystectomy. PANCREAS: No significant findings. SPLEEN: No significant findings. ADRENALS: No significant findings. KIDNEYS: No hydronephrosis. BLADDER: No significant findings. GASTROINTESTINAL: Postsurgical changes noted in the stomach. Small bowel loops and colon are within normal limits. There is no bowel structure or free air. The appendix is not visualized. OTHER: Uterus is surgically absent. IMPRESSION: No acute findings in the abdomen or pelvis. Postsurgical changes in the stomach, cholecystectomy, appendectomy and hysterectomy. at 7190 Reported and signed by: Neo Huber MD PAGE 1 Signed Report (CONTINUED) FAX: Annemarie Tesfaye [phone] [place]: St: REG -- [facility] : 1985 Age/S: 35/F [address] Unit: [id number] Loc: [place] [address] Phys: Annemarie Tesfaye NP Acct: [id number] Dis Date: Status: REG ER PHONE #: [phone] Exam Date: 12/13/2020 0325 FAX #: [phone] Reason: DIFFUSE ABD PAIN WORSE RLQ, HX APPY, ROSE EXAMS: CPT CODE: [id number] CT ABD PELVIS W/CONT 85089 <Continued> CC: Annemarie Tesfaye NP Technologist: PAMELA KRISHNAMURTHY; Jessi Guillory; JAIRO SANCHEZ JR Trnscrd Dt/Tm: 12/13/2020 (0346) [email or web address] Orig Print D/T: S: 12/13/2020 (0343 PAGE 2 Signed ReportCOMPREHENSIVE METABOLIC [id number] 03:32:00 Test Item Value Reference Range Interpretation Comments SODIUM (test code = 136 mmol/L 137-145 L NA) POTASSIUM (test code 3.8 mmol/L 3.4-5.0 N = K) CHLORIDE (test code 103 mmol/L 98-107 N = CL) CARBON DIOXIDE (test 24 mmol/L 22-30 N code = CO2) GLUCOSE (test code = 106 mg/dL 74-106 N GLU) BLOOD UREA NITROGEN 14 mg/dL 7-17 N (test code = BUN) GLOMERULAR 122 >60 The estimated FILTRATION RATE glomerular f iltration (test code = GFR) rate is co mputed usingpatient ra ce, age (>18), sex, and serum creatinine. If anyof the needed data elements are mi ssing the Laboratory cannot compute an dimitri mation of the glomerul ar filtration rate . CREATININE (test 0.6 mg/dL 0.5-1.0 N code = CREAT) TOTAL PROTEIN (test 7.0 g/dL 6.3-8.2 N code = PROT) " A positive bias m ay occur for patients ta milady Eltrombopag(a b one marrow stimulan t used to treat thrombocytopeni a andaplastic anemia)." ALBUMIN (test code = 4.1 g/dL 3.5-5.0 N ALB) CALCIUM (test code = 9.5 mg/dL 8.4-10.2 N CA) BILIRUBIN TOTAL 0.3 mg/dL 0.2-1.3 N "A positive bias may (test code = BILT) occur for patients taking Eltrombo pag(a bone marrow sti mulant used to treat thrombocytopeni a andaplastic ane nicol)." BILIRUBIN CONJUGATED 0 mg/dL 0-0.3 N "A posi tive bias may (test code = BILCON) occur f or patients taking Eltrombo pag(a bone marrow sti mulant used to treat thrombocytopeni a andaplastic ane nicol)." C ONJUGATE D BILIRUBIN IS THE REPLACEMENT ASS AY FOR DIRECTBILIRUBIN . BILIRUBIN 0.1 mg/dL 0-1.1 N UNCONJUGATED (test code = BILUNC) SGOT/AST (test code 24 U/L 15-46 N = AST) SGPT/ALT (test code 17 U/L 0-34 N = ALT) ALKALINE PHOSPHATASE 99 U/L 38-126 N (test code = ALKP) [id number] 03:32:00 Test Item Value Reference Range Interpretation Comments LIPASE (test code = LIP) 82 U/L 23-300 N BEDSIDE [id number] 03:24:00 Test Item Value Reference Range Interpretation Comments BEDSIDE CREATININE (test code = 0.60 mg/dL 0.51-1.19 N CREATBED) CBC W/AUTO [id number] 03:14:00 Test Item Value Reference Range Interpretation Comments WHITE BLOOD CELL (test code = 8.2 x10 3/uL 5.0-12.0 N WBC) RED BLOOD CELL (test code = 4.39 x10 6/uL 4.20-5.40 N RBC) HEMOGLOBIN (test code = HGB) 12.4 g/dL 12.0-16.0 N HEMATOCRIT (test code = HCT) 36.9 % 36.0-46.0 N MEAN CELL VOLUME (test code = 84 fL 81-99 N MCV) MEAN CELL HGB (test code = MCH) 28.2 pg 27-31 N MEAN CELL HGB CONCENTRATION 33.6 g/dL 33-37 N (test code = MCHC) RED CELL DISTRIBUTION WIDTH 13.2 % 11.5-15.5 N (test code = RDW) PLATELET COUNT (test code = 280 x10 3/uL 130-400 N PLT) MEAN PLATELET VOLUME (test code 8.6 fL 9.4-16.4 L = MPV) NEUTROPHIL % (test code = NT%) 56.3 % 43-65 N IMMATURE GRANULOCYTE % (test 0.5 % 0.0-2.0 N code = IG%) LYMPHOCYTE % (test code = LY%) 36.2 % 20.5-45.5 N MONOCYTE % (test code = MO%) 5.6 % 5.5-11.7 N EOSINOPHIL % (test code = EO%) 1.0 % 0.9-2.9 N BASOPHIL % (test code = BA%) 0.4 % 0.2-1.0 N NUCLEATED RBC % (test code = 0.0 % 0-1.0 N NRBC%) NEUTROPHIL # (test code = NT#) 4.64 x10 3/uL 2.2-4.8 N IMMATURE GRANULOCYTE # (test 0.04 x10 3/uL 0-0.03 H code = IG#) LYMPHOCYTE # (test code = LY#) 2.98 x10 3/uL 1.3-2.9 H MONOCYTE # (test code = MO#) 0.46 x10 3/uL 0.3-0.8 N EOSINOPHIL # (test code = EO#) 0.08 x10 3/uL 0.0-0.2 N BASOPHIL # (test code = BA#) 0.03 x10 3/uL 0.0-0.1 N UA RFLX MICR CULT IF [id number] 02:59:00 Test Item Value Reference Range Interpretation Comments UA COLOR (test code Yellow Yellow = COLU) UA APPEARANCE (test Slightly-Cloudy Clear code = APPU) UA GLUCOSE DIPSTICK Negative Negative (test code = DGLUU) UA BILIRUBIN Negative Negative DIPSTICK (test code = BILU) UA KETONE DIPSTICK Negative mg/dL Negative (test code = KETU) UA SPECIFIC GRAVITY 1.014 <1.030 (test code = SGU) UA BLOOD DIPSTICK Negative Negative (test code = SARA) UA PH DIPSTICK (test 6.0 5.0-8.0 code = LORETTA) UA PROTEIN DIPSTICK NEGATIVE mg/dL Negative (test code = PROU) UA UROBILINOGEN Negative mg/dL Negative DIPSTICK (test code = URO) UA NITRITE DIPSTICK Negative Negative (test code = ISAAK) UA LEUKOCYTE NEGATIVE Negative ESTERASE DIPSTICK (test code = LEUU) UA WBC (test code = 0-3 /HPF See_Comment <10 WBC/ HPF = WBCUR) PYURIA ABSENT URINE CULTURE NOT INDICATED [Automated message] The system which generated this result transmit michael reference range : <4-5. The reference range was not used to interpret this result as normal/abnormal . UA RBC (test code = 0-3 /HPF See_Comment [Automa michael RBCU) message] The system which generated this result transmit michael reference range : <4-5. The reference range was not used to interpret this result as normal/abnormal . UA BACTERIA (test 4+ /HPF None-Rare A code = BACU) UA SQUAMOUS CELLS 0-5 (RARE) /HPF See_Comment [Autom ated (test code = SQU) message] T he system which generated this result transmit michael reference range : 0-5 (RARE). The reference range was not used to interpret this result as normal/abnormal . UA HYALINE CAST 0-3 /LPF See_Comment [Automated (test code = HYALU) message] The system which generated this result transmit michael reference range : <4-5. The reference range was not used to interpret this result as normal/abnormal . UA MUCUS (test code Rare /LPF See_Comment A [Automa michael = MUCU) message] The system which generated this result transmit michael reference range : <Rare. The reference range was not used to interpret this result as normal/abnormal . Indication for culture: Dysuria/FrequencySOURCE OF URINE: VOIDEDSTAT LAB CBC WITH AUTO [id number] 15:12:00 Test Item Value Reference Range Interpretation Comments WBC (test code = WBC) 8.46 10\\S\\3/ul 4.80-10.80 RBC (test code = RBC) 4.25 10\\S\\6/ul 4.20-5.40 Hemoglobin (test code 12.1 gm/dl 12.0-14.0 = HGB) Hematocrit (test code 36.5 % 37.0-47.0 L = HCT) MCV (test code = MCV) 85.9 fL 81.0-99.0 MCH (test code = MCH) 28.5 pg 27.0-31.0 MCHC (test code = 33.2 gm/dl 33.0-37.0 MCHC) Platelet (test code = 260 10\\S\\3/ul 130-400 PLT) RDW (test code = 12.9 % 11.5-14.5 RDWVC) MPV (test code = MPV) 8.6 fL 7.4-10.4 A NE% (test code = NE) 70.4 % 42.0-75.0 LY% (test code = LY) 23.8 % 13.0-42.0 MO% (test code = MO) 4.6 % 4.0-14.0 EO% (test code = EO) 0.8 % 1.0-3.0 L BA% (test code = BA) 0.2 % 1.0-3.0 L IG% (test code = IG%) 0.2 % 0.0-0.4 Neutrophils (test 63 % 42-75 No previou s value code = NEUTR) was reported. A value of 63 was entered by [id number] on 12/12/2020 15:12 Bands (test code = 2 % 0-2 No previo us value BANDM) was reported. A value of 2 was entered by [id number] on 12/12/2020 15:12 Lymphocytes (test 26 % 13-42 No previou s value code = LYMPH) was reported. A value of 26 was entered by [id number] on 12/12/2020 15:12 Monocytes (test code 4 % 4-14 No prev ious value = MONOS) was reported. A value of 4 was entered by [id number] on 12/12/2020 15:12 Eosinophils (test 2 % 1-3 No previou s value code = EOS) was reported. A value of 2 was entered by [id number] on 12/12/2020 15:12 Atypical Lymphocyte 3 % No previ ous value (test code = ATPLYM) was rep orted. A value of 3 was entered by [id number] on 12/12/2020 15:12 STAT LAB CHEM [id number] 14:08:00 Test Item Value Reference Range Interpretation Comments Sodium (test code = NA) 139 mmol/l 138-146 Potassium (test code = K) 4.0 mmol/l 3.5-4.9 Chloride (test code = CL) 106 mmol/l 98-109 IONIZED CALCIUM (test code = ICA) 1.12 1.12-1.32 AA CO2 (test code = CO2) 25 mmol/l 24-29 Glucose (test code = GLU) 106 mg/dl 70-105 H BUN (test code = BUN) 13 mg/dl 6-17 Creatinine (test code = CREA) 0.5 mg/dl 0.6-1.3 L STAT LAB URINALYSIS WITHOUT [id number] 12:08:00 Test Item Value Reference Range Interpretation Comments Color (test code = Light-Yellow UCOLR) Clarity (test code = Cloudy UCLAR) Glucose (test code = NEGATIVE NEGATIVE N UGLUC) Bilirubin (test code NEGATIVE NEGATIVE N = UBILI) Ketones (test code = NEGATIVE NEGATIVE N UKET) Specific [place] 1.015 1.005-1.030 A (test code = USPGR) Blood (test code = NEGATIVE NEGATIVE N UBLD) PH (test code = UPH) 7.0 4.5-8.0 A Protein (test code = NEGATIVE NEGATIVE N UPROT) Urobilinogen (test 0.2 See_Comment N [Automat ed message] code = U UROB) The system [facility] generated this result transmit michael reference range : 0.2. The refere nce range was not u sed to interpret th is result as normal/abnormal . Nitrite (test code = NEGATIVE NEGATIVE N UNITR) Leukocyte Esterase NEGATIVE NEGATIVE N (test code = ULEUK) HEPATIC FUNCTION PANEL (LIVER)2020-11-21 08:43:00 Test Item Value Reference Range Interpretation Comments T Protein (test code = TP) 6.5 gm/dl 6.4-8.2 Albumin (test code = ALB) 3.1 gm/dl 3.4-5.0 L AST (SGOT) (test code = AST) 10 U/L 15-37 L ALT (SGPT) (test code = ALT) 17 U/L 13-61 Alkaline Phos (test code = ALKP) 84 U/L 45-117 Total Bilirubin (test code = TBIL) 0.4 mg/dl 0.2-1.0 Direct Bilirubin (test code = <0.1 mg/dl 0.0-0.3 N DBIL) Indirect Bilirubin (test code = 0.4 mg/dl 0.0-1.1 IBIL) URINALYSIS WITH [id number] 08:31:00 Test Item Value Reference Range Interpretation Comments Color (test code = Light-Yellow UCOLR) Clarity (test code = Clear UCLAR) Glucose (test code = NEGATIVE NEGATIVE N UGLUC) Bilirubin (test code NEGATIVE NEGATIVE N = UBILI) Ketones (test code = NEGATIVE NEGATIVE N UKET) Specific [place] 1.020 1.005-1.030 A (test code = USPGR) Blood (test code = NEGATIVE NEGATIVE N UBLD) PH (test code = UPH) 6.5 4.5-8.0 A Protein (test code = NEGATIVE NEGATIVE N UPROT) Urobilinogen (test 0.2 See_Comment N [Automat ed message] code = U UROB) The system [facility] generated this result transmit michael reference range : 0.2. The refere nce range was not u sed to interpret th is result as normal/abnormal . Nitrite (test code = NEGATIVE NEGATIVE N UNITR) Leukocyte Esterase NEGATIVE NEGATIVE N (test code = ULEUK) RBC (test code = 2-5 0-5 A RBCUR) WBC (test code = 2-5 0-5 A WBCUR) Bacteria (test code = 4+ None Seen,Trace A UBACT) Mucous (test code = TRACE None Seen A UMUC) Squamous Epithelial TNTC 0-10 A (test code = SQEP) STAT LAB CHEM [id number] 08:27:00 Test Item Value Reference Range Interpretation Comments Sodium (test code = NA) 139 mmol/l 138-146 Potassium (test code = K) 3.9 mmol/l 3.5-4.9 Chloride (test code = CL) 105 mmol/l 98-109 IONIZED CALCIUM (test code = ICA) 1.10 1.12-1.32 AA CO2 (test code = CO2) 23 mmol/l 24-29 L Glucose (test code = GLU) 97 mg/dl 70-105 BUN (test code = BUN) 10 mg/dl 6-17 Creatinine (test code = CREA) 0.5 mg/dl 0.6-1.3 L STAT LAB CBC WITH AUTO [id number] 08:26:00 Test Item Value Reference Range Interpretation Comments WBC (test code = WBC) 7.13 10\\S\\3/ul 4.80-10.80 RBC (test code = RBC) 4.06 10\\S\\6/ul 4.20-5.40 L Hemoglobin (test code = HGB) 11.7 gm/dl 12.0-14.0 L Hematocrit (test code = HCT) 34.8 % 37.0-47.0 L MCV (test code = MCV) 85.7 fL 81.0-99.0 MCH (test code = MCH) 28.8 pg 27.0-31.0 MCHC (test code = MCHC) 33.6 gm/dl 33.0-37.0 Platelet (test code = PLT) 239 10\\S\\3/ul 130-400 RDW (test code = RDWVC) 12.7 % 11.5-14.5 MPV (test code = MPV) 8.7 fL 7.4-10.4 A NE% (test code = NE) 63.6 % 42.0-75.0 LY% (test code = LY) 30.0 % 13.0-42.0 MO% (test code = MO) 4.9 % 4.0-14.0 EO% (test code = EO) 1.0 % 1.0-3.0 BA% (test code = BA) 0.1 % 1.0-3.0 L IG% (test code = IG%) 0.4 % 0.0-0.4 XR ABDOMEN 2 VIEWS FLAT / [id number] 08:18:50 [facility] ([facility]/)Name: LAUREN BETH : 1985 Sex: FProcedure: XR ABDOMEN 2 VIEWS FLAT / UPRIGHTOrder Date: 11/21/2020 7:43 AMOrdering Provider: REHAN Farrellinical Indication: [id number]: Abdominal painComparison: Nov 14 2020Findings:Bowel gas pattern is non-obstructive. No pneumoperitoneum.There is moderate volume stool burden.Surgical clips in the right upper quadrant of the abdomen.Impression:Nonobstructive bowel gas pattern.This final report was electronically signed by Dr Silver Benitez MD :13 AMDictated By: Maggie DONISte: 11/21/2020 08:13CT ABDOMEN/PELVIS W/O [id number] 14:11:31[facility] ([facility]/[place])Name: LAUREN BETH : 1985 Sex: FProcedure: CT ABDOMEN/PELVIS W/O CONTRASTOrder Date: 11/14/2020 1:22 PMOrdering Provider: MT ACOSTA .Clinical Indication: [id number]: Right flank painComparison: Renal ultrasound November 08, 2020, CT abdomen/pelvis August 06, 2020Technique: Using a helical scanner, sequential axial imaging of the abdomen andpelvis was obtained without the administration of oral or IV contrast. The examextended from the level of the lung bases superiorly to the level of the pubicsymphysis inferiorly. 2-D sagittal and coronal reconstructed images wereobtained. This exam was performed according to the departmentaldose-optimization program which includes automated exposure control, adjustmentof the mA and/or kV according to patient size and/or use of iterativereconstruction techniques.Findings:The lung bases are clear. No basilar consolidation or effusion.The liver is normal in size and density. Hepatic contour is normal. There are nohepatic masses. No intrahepatic ductal dilatation.The gallbladder has been removed.The spleen is normal in size and density. There are no intrinsic splenic masses.There is no evidence of a subcapsular hematoma or fluid collection.The pancreas is normal in size and density. There are no pancreaticcalcifications or masses. There is no pancreatic ductal dilatation.The adrenal glands are normal in size bilaterally.There are no adrenal masses bilaterally.The right kidney is normal in size and shape.There are no calculi, masses, or hydronephrosis.The left k idney is normal in size and shape.There are 2 adjacent calculi within an interpolar calyx measuring 2 mm indiameter. No ureteral calculi or hydronephrosis. No masses.Aorta is normal in size and diameter. There is no aneurysm.The IVC is normal in size and location.There is no lymphadenopathy in the abdomen, pelvis, or either inguinal region.Postoperative change consisting of gastric sleeve.There is nosmall or large bowel distention. There is no bowel thickening. Thereare no inflammatory changes in the abdomen or pelvis.The appendix has been removed.Urinary bladder has a normal appearance.The uterushas been removedNo inguinal masses.There is no skeletal lesion.IMPRESSION:1. Nonobstructive left nephrolithiasis.2. No other urinary tract calculi or hydronephrosis bilaterally.3. No acute inflammatorychange in the abdomen or pelvis.4. Postoperative change consisting of gastric sleeve procedure, rose cystectomy,appendectomy, and hysterectomy.5. No other significant findings.This final report was electronically signed by Dr Farzad Dewitt MD 12:05 PMDictated By: FARZAD DEWITT.Date: 11/14/2020 14:05STAT LAB , URINE 2020-11-14 13:31:00 Test Item Value Reference Range Interpretation Comments (Urine) (test code = Negative PREGU) ONLY AVAILABLE 8A-12MNSTAT LAB CHEM [id number] 11:09:00 Test Item Value Reference Range Interpretation Comments Sodium (test code = NA) 140 mmol/l 138-146 Potassium (test code = K) 4.2 mmol/l 3.5-4.9 Chloride (test code = CL) 106 mmol/l 98-109 IONIZED CALCIUM (test code = ICA) 1.16 1.12-1.32 AA CO2 (test code = CO2) 25 mmol/l 24-29 Glucose (test code = GLU) 81 mg/dl 70-105 BUN (test code = BUN) 6 mg/dl 6-17 Creatinine (test code = CREA) 0.5 mg/dl 0.6-1.3 L STAT LAB URINALYSIS WITHOUT [id number] 11:08:00 Test Item Value Reference Range Interpretation Comments Color (test code = Yellow Lt. Yellow A UCOLR) Clarity (test code = Clear UCLAR) Glucose (test code = Negative Negative N UGLUC) Bilirubin (test code Negative Negative N = UBILI) Ketones (test code = Negative Negative N UKET) Specific [place] 1.025 1.005-1.030 A (test code = USPGR) Blood (test code = Trace-intact Negative A UBLD) PH (test code = UPH) 6.0 4.5-8.0 A Protein (test code = Negative Negative N UPROT) Urobilinogen (test 0.2 See_Comment N [Automat ed message] code = U UROB) The system [facility] generated this result transmit michael reference range : 0.2. The refere nce range was not u sed to interpret th is result as normal/abnormal . Nitrite (test code = Negative Negative N UNITR) Leukocyte Esterase Negative Negative N (test code = ULEUK) STAT LAB CBC WITH AUTO [id number] 11:05:00 Test Item Value Reference Range Interpretation Comments WBC (test code = WBC) 7.06 10\\S\\3/ul 4.80-10.80 RBC (test code = RBC) 4.16 10\\S\\6/ul 4.20-5.40 L Hemoglobin (test code = HGB) 11.8 gm/dl 12.0-14.0 L Hematocrit (test code = HCT) 35.6 % 37.0-47.0 L MCV (test code = MCV) 85.6 fL 81.0-99.0 MCH (test code = MCH) 28.4 pg 27.0-31.0 MCHC (test code = MCHC) 33.1 gm/dl 33.0-37.0 Platelet (test code = PLT) 251 10\\S\\3/ul 130-400 RDW (test code = RDWVC) 12.7 % 11.5-14.5 MPV (test code = MPV) 8.7 fL 7.4-10.4 A NE% (test code = NE) 69.1 % 42.0-75.0 LY% (test code = LY) 23.5 % 13.0-42.0 MO% (test code = MO) 5.5 % 4.0-14.0 EO% (test code = EO) 1.4 % 1.0-3.0 BA% (test code = BA) 0.1 % 1.0-3.0 L IG% (test code = IG%) 0.4 % 0.0-0.4 CULTURE, [id number] 08:43:00Specimen: Urine SpecimensCollected: 11/08/2020 09:59 Status: Final Last Updated: 11/09/2020 08:43 CULTURE (Final) (Final) Few Mixed Body Gabriela Isolated No Pathogens IsolatedUS RENAL & BLADDER (KIDNEYS)2020-11-08 12:00:28 [facility] ([facility])Name: LAUREN BETH : 1985 Sex: FProcedure: US RENALOrder Date: 11/08/2020 9:55 AMOrdering Provider: REHAN Farrellinical Indication: N13.2: HYDRONEPHROSIS WITH RENAL AND URETERAL CALCULOUSOBSTRUCTIONComparison: August 06, 2020Technique: Real-time ultrasonography was obtained over the kidneys and urinarybladder and enrollment representative images were recorded.Findings:Right kidney: The kidney is normal in size. No hydronephrosis. Renal corticalechogenicity and thickness is within normal limits.Left kidney: The kidney is normal in size. No hydronephrosis. Renal corticalechogenicity and thickness is within normal limits. 3 mm nonobstructing stone inthe lower pole of the kidney.Bladder: Unremarkable .Impression:1. Nonobstructing left renal stone.2. Otherwise, negative exam.This final report was electronically signed by Dr Silver Benitez MD 111:54 AMDictated By: GLORY BENITEZKDate: 11/08/2020 11:54URINALYSIS WITH MICROSCOPIC 2020-11-08 10:58:00 Test Item Value Reference Range Interpretation Comments Color (test code = Yellow UCOLR) Clarity (test code = Clear UCLAR) Glucose (test code = NEGATIVE NEGATIVE N UGLUC) Bilirubin (test code = NEGATIVE NEGATIVE N UBILI) Ketones (test code = NEGATIVE NEGATIVE N UKET) Specific [place] (test 1.030 1.005-1.030 A code = USPGR) Blood (test code = NEGATIVE NEGATIVE N UBLD) PH (test code = UPH) 6.0 4.5-8.0 A Protein (test code = NEGATIVE NEGATIVE N UPROT) Urobilinogen (test code 0.2 See_Comment N [Au tomated message] = U UROB) The system [employer] generated this result transmitted ref erence range: 0.2. The reference range was not used to int erpret this result as normal/abnormal . Nitrite (test code = NEGATIVE NEGATIVE N UNITR) Leukocyte Esterase NEGATIVE NEGATIVE N (test code = ULEUK) RBC (test code = RBCUR) 6-10 0-5 A WBC (test code = WBCUR) 2-5 0-5 A Bacteria (test code = TRACE None Seen,Trace A UBACT) Mucous (test code = SMALL None Seen A UMUC) Squamous Epithelial 51-74 0-10 A (test code = SQEP) CULTURE, [id number] 08:13:00ER 17Specimen: Urine SpecimensCollected: 11/01/2020 01:10 Status: Final Last Updated: 11/02/2020 08:13 (1) ER 17 CULTURE (Final) (Final) Few Mixed Body Gabriela Isolated No Pathogens IsolatedXR ABD SERIES W/PA [id number] 03:48:37 [facility] ([facility])Name: LAUREN BETH : 1985 Sex: FPROCEDURE INFORMATION:Exam: XR Complete Acute Abdomen SeriesExam date and time:11/01/2020 2:58 AMAge: 35 years oldClinical indication: Abdominal pain; Patient HX: Hysterectomy, cholecystectomyTECHNIQUE:Imaging protocol: XR complete acute abdomen series, including 2 or more viewsof the abdomen and a single view chest.COMPARISON:CR XR ABDOMEN 1 VIEW (KUB) 09/12/2020 1:26 AMFINDINGS:Lungs: No mass, consolidation or pulmonary edema identified in either lung.Pleural spaces: Normal. No pleural effusions. No pneumothorax.Heart/Mediastinum: The cardiomediastinal silhouette and pulmonary vesselsappear normal for age, technique and projection.Gastrointestinal tract: Abdominal gas pattern is unremarkable. No evidence ofobstruction.Intraperitoneal space: No free air.Bones/joints: No acute fracture, dislocation or bony destruction evident.Soft tissues: Normal.IMPRESSION:No acute abnormality identified in the abdomen or chest. Specifically there isno evidence of bowel obstruction, and the lungs appear clear.This Final report was electronically signed by Filippo Ramos MD on October13:48 AM CDT.Dictated By: FILIPPO RAMOSDate: 11/01/2020 03:48HEPATIC FUNCTION PANEL (LIVER)2020-11-01 02:14:00 Test Item Value Reference Range Interpretation Comments T Protein (test code = TP) 6.5 gm/dl 6.4-8.2 Albumin (test code = ALB) 3.1 gm/dl 3.4-5.0 L AST (SGOT) (test code = AST) 10 U/L 15-37 L ALT (SGPT) (test code = ALT) 18 U/L 13-61 Alkaline Phos (test code = ALKP) 110 U/L 45-117 Total Bilirubin (test code = TBIL) 0.1 mg/dl 0.2-1.0 L Direct Bilirubin (test code = <0.1 mg/dl 0.0-0.3 N DBIL) Indirect Bilirubin (test code = 0.1 mg/dl 0.0-1.1 IBIL) ER 17STAT LAB CHEM [id number] 01:57:00 Test Item Value Reference Range Interpretation Comments Sodium (test code = NA) 140 mmol/l 138-146 Potassium (test code = K) 3.5 mmol/l 3.5-4.9 Chloride (test code = CL) 105 mmol/l 98-109 IONIZED CALCIUM (test code = ICA) 1.13 1.12-1.32 AA CO2 (test code = CO2) 23 mmol/l 24-29 L Glucose (test code = GLU) 134 mg/dl 70-105 H BUN (test code = BUN) 10 mg/dl 6-17 Creatinine (test code = CREA) 0.5 mg/dl 0.6-1.3 L ER 17URINALYSIS WITH [id number] 01:56:00 Test Item Value Reference Range Interpretation Comments Color (test code = Light-Yellow UCOLR) Clarity (test code = Clear UCLAR) Glucose (test code = 50 NEGATIVE A UGLUC) Bilirubin (test code NEGATIVE NEGATIVE N = UBILI) Ketones (test code = NEGATIVE NEGATIVE N UKET) Specific [place] 1.025 1.005-1.030 A (test code = USPGR) Blood (test code = NEGATIVE NEGATIVE N UBLD) PH (test code = UPH) 6.0 4.5-8.0 A Protein (test code = TRACE NEGATIVE A UPROT) Urobilinogen (test 0.2 See_Comment N [Automat ed message] code = U UROB) The system [employer] generated this result transmit michael reference range : 0.2. The refere nce range was not u sed to interpret th is result as normal/abnormal . Nitrite (test code = NEGATIVE NEGATIVE N UNITR) Leukocyte Esterase NEGATIVE NEGATIVE N (test code = ULEUK) RBC (test code = 2-5 0-5 A RBCUR) WBC (test code = 2-5 0-5 A WBCUR) Bacteria (test code = 2+ None Seen,Trace A UBACT) Mucous (test code = TRACE None Seen A UMUC) Squamous Epithelial 41-50 0-10 A (test code = SQEP) ER 17STAT LAB CBC WITH AUTO [id number] 01:55:00 Test Item Value Reference Range Interpretation Comments WBC (test code = WBC) 7.37 10\\S\\3/ul 4.80-10.80 RBC (test code = RBC) 3.98 10\\S\\6/ul 4.20-5.40 L Hemoglobin (test code = HGB) 11.4 gm/dl 12.0-14.0 L Hematocrit (test code = HCT) 34.1 % 37.0-47.0 L MCV (test code = MCV) 85.7 fL 81.0-99.0 MCH (test code = MCH) 28.6 pg 27.0-31.0 MCHC (test code = MCHC) 33.4 gm/dl 33.0-37.0 Platelet (test code = PLT) 240 10\\S\\3/ul 130-400 RDW (test code = RDWVC) 12.7 % 11.5-14.5 MPV (test code = MPV) 8.8 fL 7.4-10.4 A NE% (test code = NE) 59.4 % 42.0-75.0 LY% (test code = LY) 31.1 % 13.0-42.0 MO% (test code = MO) 7.2 % 4.0-14.0 EO% (test code = EO) 1.6 % 1.0-3.0 BA% (test code = BA) 0.3 % 1.0-3.0 L IG% (test code = IG%) 0.4 % 0.0-0.4 ER 17HEPATIC FUNCTION PANEL (LIVER)2020-10-05 01:26:00 Test Item Value Reference Range Interpretation Comments T Protein (test code = TP) 7.2 gm/dl 6.4-8.2 Albumin (test code = ALB) 3.3 gm/dl 3.4-5.0 L AST (SGOT) (test code = AST) 12 U/L 15-37 L ALT (SGPT) (test code = ALT) 21 U/L 13-61 Alkaline Phos (test code = ALKP) 110 U/L 45-117 Total Bilirubin (test code = TBIL) 0.1 mg/dl 0.2-1.0 L Direct Bilirubin (test code = <0.1 mg/dl 0.0-0.3 N DBIL) Indirect Bilirubin (test code = 0.1 mg/dl 0.0-1.1 IBIL) er [id number] 01:26:00 Test Item Value Reference Range Interpretation Comments Lipase (test code = LIPA) 154 U/L 73-393 ER 10STAT LAB CHEM [id number] 01:15:00 Test Item Value Reference Range Interpretation Comments Sodium (test code = NA) 141 mmol/l 138-146 Potassium (test code = K) 3.5 mmol/l 3.5-4.9 Chloride (test code = CL) 105 mmol/l 98-109 IONIZED CALCIUM (test code = ICA) 1.08 1.12-1.32 A CO2 (test code = CO2) 26 mmol/l 24-29 Glucose (test code = GLU) 107 mg/dl 70-105 H BUN (test code = BUN) 13 mg/dl 6-17 Creatinine (test code = CREA) 0.6 mg/dl 0.6-1.3 er 10STAT LAB , [id number] 01:14:00 Test Item Value Reference Range Interpretation Comments (Urine) (test code = Negative PREGU) er 10STAT LAB CBC WITH AUTO [id number] 01:13:00 Test Item Value Reference Range Interpretation Comments WBC (test code = WBC) 8.03 10\\S\\3/ul 4.80-10.80 RBC (test code = RBC) 4.29 10\\S\\6/ul 4.20-5.40 Hemoglobin (test code = HGB) 12.5 gm/dl 12.0-14.0 Hematocrit (test code = HCT) 36.8 % 37.0-47.0 L MCV (test code = MCV) 85.8 fL 81.0-99.0 MCH (test code = MCH) 29.1 pg 27.0-31.0 MCHC (test code = MCHC) 34.0 gm/dl 33.0-37.0 Platelet (test code = PLT) 266 10\\S\\3/ul 130-400 RDW (test code = RDWVC) 12.6 % 11.5-14.5 MPV (test code = MPV) 8.7 fL 7.4-10.4 A NE% (test code = NE) 54.7 % 42.0-75.0 LY% (test code = LY) 37.6 % 13.0-42.0 MO% (test code = MO) 5.1 % 4.0-14.0 EO% (test code = EO) 1.5 % 1.0-3.0 BA% (test code = BA) 0.2 % 1.0-3.0 L IG% (test code = IG%) 0.9 % 0.0-0.4 H er [id number] 04:21:00 Test Item Value Reference Range Interpretation Comments Lipase (test code = LIPA) 146 U/L 73-393 HEPATIC FUNCTION PANEL (LIVER)2020-09-18 04:21:00 Test Item Value Reference Range Interpretation Comments T Protein (test code = TP) 7.1 gm/dl 6.4-8.2 Albumin (test code = ALB) 3.3 gm/dl 3.4-5.0 L AST (SGOT) (test code = AST) 14 U/L 15-37 L ALT (SGPT) (test code = ALT) 20 U/L 13-61 Alkaline Phos (test code = ALKP) 117 U/L 45-117 Total Bilirubin (test code = TBIL) 0.1 mg/dl 0.2-1.0 L Direct Bilirubin (test code = <0.1 mg/dl 0.0-0.3 N DBIL) Indirect Bilirubin (test code = 0.1 mg/dl 0.0-1.1 IBIL) AMYLASE, [id number] 04:21:00 Test Item Value Reference Range Interpretation Comments Amylase (test code = AMYL) 47 U/L 25-115 URINALYSIS WITH [id number] 03:06:00 Test Item Value Reference Range Interpretation Comments Color (test code = Light-Yellow UCOLR) Clarity (test code = Clear UCLAR) Glucose (test code = NEGATIVE NEGATIVE N UGLUC) Bilirubin (test code NEGATIVE NEGATIVE N = UBILI) Ketones (test code = TRACE NEGATIVE A UKET) Specific [place] 1.025 1.005-1.030 A (test code = USPGR) Blood (test code = NEGATIVE NEGATIVE N UBLD) PH (test code = UPH) 5.5 4.5-8.0 A Protein (test code = NEGATIVE NEGATIVE N UPROT) Urobilinogen (test 0.2 See_Comment N [Automat ed message] code = U UROB) The system [facility] generated this result transmit michael reference range : 0.2. The refere nce range was not u sed to interpret th is result as normal/abnormal . Nitrite (test code = NEGATIVE NEGATIVE N UNITR) Leukocyte Esterase NEGATIVE NEGATIVE N (test code = ULEUK) RBC (test code = 2-5 0-5 A RBCUR) WBC (test code = 2-5 0-5 A WBCUR) Bacteria (test code = 2+ None Seen,Trace A UBACT) Mucous (test code = TRACE None Seen A UMUC) Squamous Epithelial 21-30 0-10 A (test code = SQEP) Non-squamous 1 NONE SEEN A Epithelial (test code = NSE) STAT LAB CHEM [id number] 02:51:00 Test Item Value Reference Range Interpretation Comments Sodium (test code = NA) 140 mmol/l 138-146 Potassium (test code = K) 3.9 mmol/l 3.5-4.9 Chloride (test code = CL) 104 mmol/l 98-109 IONIZED CALCIUM (test code = ICA) 1.17 1.12-1.32 A CO2 (test code = CO2) 26 mmol/l 24-29 Glucose (test code = GLU) 99 mg/dl 70-105 BUN (test code = BUN) 16 mg/dl 6-17 Creatinine (test code = CREA) 0.6 mg/dl 0.6-1.3 STAT LAB CBC WITH AUTO [id number] 02:50:00 Test Item Value Reference Range Interpretation Comments WBC (test code = WBC) 9.32 10\\S\\3/ul 4.80-10.80 RBC (test code = RBC) 4.40 10\\S\\6/ul 4.20-5.40 Hemoglobin (test code = HGB) 12.6 gm/dl 12.0-14.0 Hematocrit (test code = HCT) 37.3 % 37.0-47.0 MCV (test code = MCV) 84.8 fL 81.0-99.0 MCH (test code = MCH) 28.6 pg 27.0-31.0 MCHC (test code = MCHC) 33.8 gm/dl 33.0-37.0 Platelet (test code = PLT) 284 10\\S\\3/ul 130-400 RDW (test code = RDWVC) 12.2 % 11.5-14.5 MPV (test code = MPV) 8.8 fL 7.4-10.4 A NE% (test code = NE) 61.5 % 42.0-75.0 LY% (test code = LY) 30.0 % 13.0-42.0 MO% (test code = MO) 7.0 % 4.0-14.0 EO% (test code = EO) 0.8 % 1.0-3.0 L BA% (test code = BA) 0.2 % 1.0-3.0 L IG% (test code = IG%) 0.5 % 0.0-0.4 H XR ABDOMEN 1 VIEW (KUB)2020-09-12 01:51:21 [facility] ([facility])Name: LAUREN BETH : 1985 Sex: FPROCEDURE INFORMATION:Exam: XR AbdomenExam date and time: 09/12/2020 12:59 AMAge: 35 years oldClinical indication: Nausea and vomiting; Prior surgery; Surgery date: 6+months; Surgery type: Gb removed, hyst, appendectomy; Patient HX: Abd pain, n/vTECHNIQUE:Imaging protocol: XR of the abdomen.Views: Frontal supine view of the abdomen. 1 View.COMPARISON:CR XR ABDOMEN 2 VIEWS FLAT / UPRIGHT 07/19/2020 8:53 AMFINDINGS:Gastrointestinal tract: Nondistended bowel. Stool in ascending colon.Radiopaque pills projecting over the right abdomen.Organs: Cholecystectomy clips.Bones/joints: Unremarkable.IMPRESSION:1. Nonobstructed bowel.This Final report was electronically signed by Celestino Allen MD on 2020 1:50 AM CDT.Dictated By: CELESTINO ALLENDate: 09/12/2020 01:50STAT LAB CBC WITH AUTO [id number] 01:29:00 Test Item Value Reference Range Interpretation Comments WBC (test code = WBC) 8.20 10\\S\\3/ul 4.80-10.80 RBC (test code = RBC) 4.15 10\\S\\6/ul 4.20-5.40 L Hemoglobin (test code = HGB) 11.9 gm/dl 12.0-14.0 L Hematocrit (test code = HCT) 35.6 % 37.0-47.0 L MCV (test code = MCV) 85.8 fL 81.0-99.0 MCH (test code = MCH) 28.7 pg 27.0-31.0 MCHC (test code = MCHC) 33.4 gm/dl 33.0-37.0 Platelet (test code = PLT) 271 10\\S\\3/ul 130-400 RDW (test code = RDWVC) 12.4 % 11.5-14.5 MPV (test code = MPV) 8.8 fL 7.4-10.4 A NE% (test code = NE) 60.2 % 42.0-75.0 LY% (test code = LY) 32.8 % 13.0-42.0 MO% (test code = MO) 5.5 % 4.0-14.0 EO% (test code = EO) 1.0 % 1.0-3.0 BA% (test code = BA) 0.1 % 1.0-3.0 L IG% (test code = IG%) 0.4 % 0.0-0.4 STAT LAB CHEM [id number] 01:28:00 Test Item Value Reference Range Interpretation Comments Sodium (test code = NA) 140 mmol/l 138-146 Potassium (test code = K) 3.7 mmol/l 3.5-4.9 Chloride (test code = CL) 106 mmol/l 98-109 IONIZED CALCIUM (test code = ICA) 1.13 1.12-1.32 A CO2 (test code = CO2) 25 mmol/l 24-29 Glucose (test code = GLU) 155 mg/dl 70-105 H BUN (test code = BUN) 16 mg/dl 6-17 Creatinine (test code = CREA) 0.6 mg/dl 0.6-1.3 URINALYSIS WITH [id number] 03:04:00 Test Item Value Reference Range Interpretation Comments Color (test code = Yellow UCOLR) Clarity (test code = Clear UCLAR) Glucose (test code = 100 NEGATIVE A UGLUC) Bilirubin (test code = NEGATIVE NEGATIVE N UBILI) Ketones (test code = TRACE NEGATIVE A UKET) Specific [place] (test >=1.030 1.005-1.030 A code = USPGR) Blood (test code = NEGATIVE NEGATIVE N UBLD) PH (test code = UPH) 5.5 4.5-8.0 A Protein (test code = NEGATIVE NEGATIVE N UPROT) Urobilinogen (test code 0.2 See_Comment N [Au tomated message] = U UROB) The system [employer] generated this result transmitted ref erence range: 0.2. The reference range was not used to int erpret this result as normal/abnormal . Nitrite (test code = NEGATIVE NEGATIVE N UNITR) Leukocyte Esterase NEGATIVE NEGATIVE N (test code = ULEUK) WBC (test code = WBCUR) 0-5 0-5 N RBC (test code = RBCUR) None Seen 0-5 A Epithial Cells (test 60-75 0-10 A code = U EPI) Mucous (test code = None Seen None Seen N UMUC) Bacteria (test code = 3+ None Seen,Trace A UBACT) [id number] 03:01:00 Test Item Value Reference Range Interpretation Comments Sodium (test code = 139 mmol/l 136-146 NA) Potassium (test 3.3 mmol/l 3.5-5.1 L code = K) Chloride (test code 111 mmol/l 98-107 H = CL) Calcium (test code 8.3 mg/dl 8.5-10.1 L = CALC) CO2 (test code = 23 mmol/l 21-32 CO2) Glucose (test code 166 mg/dl 74-106 H = GLU) BUN (test code = 14.0 mg/dl 7.0-18.0 BUN) Creatinine (test 0.7 mg/dl 0.5-1.3 code = CREA) T Protein (test 7.1 gm/dl 6.4-8.2 code = TP) Albumin (test code 3.3 gm/dl 3.4-5.0 L = ALB) A/G Ratio (test 0.9 % 1.1-2.2 L code = AGRAT) AST (SGOT) (test 15 U/L 15-37 code = AST) ALT (SGPT) (test 24 U/L 13-61 code = ALT) Alkaline Phos (test 108 U/L 45-117 code = ALKP) Total Bilirubin 0.1 mg/dl 0.2-1.0 L (test code = TBIL) Globulin (test code 3.8 gm/dl 2.3-3.5 H = GLOBU) Calcium, Corrected 8.9 mg/dl 8.4-10.2 Various f ormulas exist (test code = for corrected s jeison CALCCORR) calcium results , each yielding differ ent values. This corrected resul t was based on the fo rmula: Corrected Calci um = SerumCalcium + [0.8 * ( 4 - SerumAlbu min)] EGFR if >60 Turkish (test code mL/min/1.73m\\ = EGFRAA) S\\2 EGFR if Non- >60 Estimate d Glomerular Turkish (test code mL/min/1.73m\\ Filtrat ion Rate (eGFR) = EGFRNA) S\\2 Reference Inter vals Decision Points for 18 years and older and average body ma ss: >= 60 Does not exc lude kidney disease. 30 - 59 Suggests modera te chronic kidney disease and indicat es the need for furthe r investigation including asses sment of proteinuria and cardiovascular factors. < 30 Usually in dicates a need for refe rral for assessment and management of c hronic kidney failure. [id number] 03:01:00 Test Item Value Reference Range Interpretation Comments Lipase (test code = LIPA) 145 U/L 73-393 STAT LAB TEST, Serum [id number] 02:48:00 Test Item Value Reference Range Interpretation Comments (Serum) (test code = Negative PREGS) STAT LAB CBC WITH AUTO [id number] 02:28:00 Test Item Value Reference Range Interpretation Comments WBC (test code = WBC) 7.38 10\\S\\3/ul 4.80-10.80 RBC (test code = RBC) 4.68 10\\S\\6/ul 4.20-5.40 Hemoglobin (test code = HGB) 13.3 gm/dl 12.0-14.0 Hematocrit (test code = HCT) 41.1 % 37.0-47.0 MCV (test code = MCV) 87.8 fL 81.0-99.0 MCH (test code = MCH) 28.4 pg 27.0-31.0 MCHC (test code = MCHC) 32.4 gm/dl 33.0-37.0 L Platelet (test code = PLT) 251 10\\S\\3/ul 130-400 RDW (test code = RDWVC) 12.3 % 11.5-14.5 MPV (test code = MPV) 8.8 fL 7.4-10.4 A NE% (test code = NE) 60.9 % 42.0-75.0 LY% (test code = LY) 32.0 % 13.0-42.0 MO% (test code = MO) 5.4 % 4.0-14.0 EO% (test code = EO) 0.9 % 1.0-3.0 L BA% (test code = BA) 0.3 % 1.0-3.0 L IG% (test code = IG%) 0.5 % 0.0-0.4 H HEPATIC FUNCTION PANEL (LIVER)2020-08-06 02:59:00 Test Item Value Reference Range Interpretation Comments T Protein (test code = TP) 6.9 gm/dl 6.4-8.2 Albumin (test code = ALB) 3.2 gm/dl 3.4-5.0 L AST (SGOT) (test code = AST) 9 U/L 15-37 L ALT (SGPT) (test code = ALT) 20 U/L 13-61 Alkaline Phos (test code = ALKP) 95 U/L 45-117 Total Bilirubin (test code = TBIL) 0.1 mg/dl 0.2-1.0 L Direct Bilirubin (test code = <0.1 mg/dl 0.0-0.3 N DBIL) Indirect Bilirubin (test code = 0.1 mg/dl 0.0-1.1 IBIL) ER [id number] 02:59:00 Test Item Value Reference Range Interpretation Comments Lipase (test code = LIPA) 167 U/L 73-393 ER 16URINALYSIS WITH [id number] 02:48:00 Test Item Value Reference Range Interpretation Comments Color (test code = UCOLR) Yellow Clarity (test code = UCLAR) Clear Glucose (test code = UGLUC) NEGATIVE NEGATIVE N Bilirubin (test code = UBILI) NEGATIVE NEGATIVE N Ketones (test code = UKET) NEGATIVE NEGATIVE N Specific [place] (test code = >=1.030 1.005-1.030 A USPGR) Blood (test code = UBLD) NEGATIVE NEGATIVE N PH (test code = UPH) 6.0 4.5-8.0 A Protein (test code = UPROT) NEGATIVE NEGATIVE N Urobilinogen (test code = U UROB) 0.2 >0.2 N Nitrite (test code = UNITR) NEGATIVE NEGATIVE N Leukocyte Esterase (test code = NEGATIVE NEGATIVE N ULEUK) WBC (test code = WBCUR) 0-5 0-5 N RBC (test code = RBCUR) 0-5 0-5 N Epithial Cells (test code = U EPI) 60-75 0-10 A Mucous (test code = UMUC) None Seen None Seen N Bacteria (test code = UBACT) 4+ None Seen,Trace A ER 16CT ABDOMEN/PELVIS W/O [id number] 02:34:52ER 16 R/O KIDNEY STONE [facility] ([facility]/[place])Name: LAUREN BETH : [id number] Sex: FPROCEDURE INFORMATION:Exam: CT Abdomen And Pelvis Without ContrastExam date and time: 08/06/2020 1:55 AMAge: 35 years oldClinical indication: Abdominal pain; Flank; Right; Patient HX: Hysterectomy.Cholecystectomy. Appendectomy. HX of renal stones with lithotripsyTECHNIQUE:Imaging protocol: Computed tomography of the abdomen and pelvis withoutcontrast.Radiation optimization: All CT scans at this facility use at least one of thesedose optimization techniques: automated exposure control; mA and/or kVadjustment per patient size (includes targeted exams where dose is matched toclinical indication); or iterative reconstruction.COMPARISON:CT ABDOMEN/PELVIS W/CONTRAST 06/07/2020 4:15 PM FINDINGS:Liver: Normal. No mass.Gallbladder and bile ducts: Status post cholecystectomy.Pancreas: Normal. No ductal dilation.Spleen: Normal. No splenomegaly.Adrenal glands: Normal. No mass.Kidneys and ureters: Punctate nonobstructing right renal calculus is seen. Asmall 3.4 mm nonobstructing left renal calculus is present.Stomach and bowel: Status post gastric sleeve procedure. Fluid and air fluidlevels are seen within the colon and rectal vault, findings that couldrepresent colonic enteritis.Appendix: The appendix is not visualized in the current examination. There areno inflammatory changes seen to suggest appendicitis.Intraperitoneal space: Unremarkable. No free air. No significant fluidcollection.Vasculature: Unremarkable. No abdominal aortic aneurysm.Lymph nodes: Unremarkable. No enlarged lymph nodes.Urinary bladder: The bladder appears decompressed.Reproductive: Status post hysterectomy.Bon es/joints: Unremarkable. No acute fracture.Soft tissues: Unremarkable.IMPRESSION:1. Fluid and air fluid levels are present within the colon and rectal vault,findings that could represent mild colonic enteritis.2. Bilateral punctate nonobstructing renal calculi.This Final report was electronically signed by Hollis Ferrera MD on 2:34 AM CDT.Dictated By: HOLLIS FERRERADate: 08/06/2020 02:34STAT LAB CHEM [id number] 02:29:00 Test Item Value Reference Range Interpretation Comments Sodium (test code = NA) 142 mmol/l 138-146 Potassium (test code = K) 3.9 mmol/l 3.5-4.9 Chloride (test code = CL) 112 mmol/l 98-109 H IONIZED CALCIUM (test code = ICA) 1.11 1.12-1.32 A CO2 (test code = CO2) 20 mmol/l 24-29 L Glucose (test code = GLU) 62 mg/dl 70-105 L BUN (test code = BUN) 10 mg/dl 6-17 Creatinine (test code = CREA) 0.4 mg/dl 0.6-1.3 L ER 16STAT LAB CBC WITH AUTO [id number] 02:29:00 Test Item Value Reference Range Interpretation Comments WBC (test code = WBC) 7.67 10\\S\\3/ul 4.80-10.80 RBC (test code = RBC) 4.22 10\\S\\6/ul 4.20-5.40 Hemoglobin (test code = HGB) 12.2 gm/dl 12.0-14.0 Hematocrit (test code = HCT) 37.1 % 37.0-47.0 MCV (test code = MCV) 87.9 fL 81.0-99.0 MCH (test code = MCH) 28.9 pg 27.0-31.0 MCHC (test code = MCHC) 32.9 gm/dl 33.0-37.0 L Platelet (test code = PLT) 261 10\\S\\3/ul 130-400 RDW (test code = RDWVC) 12.5 % 11.5-14.5 MPV (test code = MPV) 8.8 fL 7.4-10.4 A NE% (test code = NE) 54.9 % 42.0-75.0 LY% (test code = LY) 36.1 % 13.0-42.0 MO% (test code = MO) 6.8 % 4.0-14.0 EO% (test code = EO) 1.2 % 1.0-3.0 BA% (test code = BA) 0.3 % 1.0-3.0 L IG% (test code = IG%) 0.7 % 0.0-0.4 H ER [id number] 09:31:00 Test Item Value Reference Range Interpretation Comments Lipase (test code = LIPA) 117 U/L 73-393 HEPATIC FUNCTION PANEL (LIVER)2020-07-19 09:31:00 Test Item Value Reference Range Interpretation Comments T Protein (test code = TP) 6.6 gm/dl 6.4-8.2 Albumin (test code = ALB) 3.0 gm/dl 3.4-5.0 L AST (SGOT) (test code = AST) 12 U/L 15-37 L ALT (SGPT) (test code = ALT) 19 U/L 13-61 Alkaline Phos (test code = ALKP) 93 U/L 45-117 Total Bilirubin (test code = TBIL) 0.3 mg/dl 0.2-1.0 Direct Bilirubin (test code = <0.1 mg/dl 0.0-0.3 N DBIL) Indirect Bilirubin (test code = 0.3 mg/dl 0.0-1.1 IBIL) XR ABDOMEN 2 VIEWS FLAT / [id number] 09:22:50 [facility] ([facility]/[place])Name: LAUREN BETH : [id number] Sex: FProcedure: XR ABDOMEN 2 VIEWS FLAT / UPRIGHTOrder Date: 07/19/2020 8:40 AMOrdering Provider: REHAN COTTON .Clinical Indication: [id number]: Abdominal painComparison: July 05, 2020Findings:Postoperative change consisting of gastric sleeve and cholecystectomy.There is no small or large bowel distention.There are no air-fluid levels.There is no pneumoperitoneum.There are no suspicious calcifications.There is no skeletal abnormality.Impression:1. No pneumoperitoneum orbowel obstruction.2. Postoperative change consisting of gastric sleeve and cholecystectomy.3. Exam otherwise negative.This final report was electronically signed by Dr Farzad Dewitt MD :17 AMDictated By: FARZAD DEWITTDate: 07/19/2020 09:17STAT LAB CHEM [id number] 09:10:00 Test Item Value Reference Range Interpretation Comments Sodium (test code = NA) 140 mmol/l 138-146 Potassium (test code = K) 3.9 mmol/l 3.5-4.9 Chloride (test code = CL) 106 mmol/l 98-109 IONIZED CALCIUM (test code = ICA) 1.09 1.12-1.32 A CO2 (test code = CO2) 26 mmol/l 24-29 Glucose (test code = GLU) 105 mg/dl 70-105 BUN (test code = BUN) 10 mg/dl 6-17 Creatinine (test code = CREA) 0.5 mg/dl 0.6-1.3 L STAT LAB CBC WITH AUTO [id number] 09:09:00 Test Item Value Reference Range Interpretation Comments WBC (test code = WBC) 5.95 10\\S\\3/ul 4.80-10.80 RBC (test code = RBC) 4.13 10\\S\\6/ul 4.20-5.40 L Hemoglobin (test code = HGB) 12.0 gm/dl 12.0-14.0 Hematocrit (test code = HCT) 36.3 % 37.0-47.0 L MCV (test code = MCV) 87.9 fL 81.0-99.0 MCH (test code = MCH) 29.1 pg 27.0-31.0 MCHC (test code = MCHC) 33.1 gm/dl 33.0-37.0 Platelet (test code = PLT) 246 10\\S\\3/ul 130-400 RDW (test code = RDWVC) 12.2 % 11.5-14.5 MPV (test code = MPV) 8.7 fL 7.4-10.4 A NE% (test code = NE) 62.0 % 42.0-75.0 LY% (test code = LY) 30.4 % 13.0-42.0 MO% (test code = MO) 5.5 % 4.0-14.0 EO% (test code = EO) 1.2 % 1.0-3.0 BA% (test code = BA) 0.2 % 1.0-3.0 L IG% (test code = IG%) 0.7 % 0.0-0.4 H STAT LAB URINALYSIS WITHOUT [id number] 09:08:00 Test Item Value Reference Range Interpretation Comments Color (test code = UCOLR) Yellow Lt. Yellow A Clarity (test code = UCLAR) Clear Glucose (test code = UGLUC) Negative Negative N Bilirubin (test code = UBILI) Negative Negative N Ketones (test code = UKET) Negative Negative N Specific [place] (test code = USPGR) >=1.030 1.005-1.030 A Blood (test code = UBLD) Negative Negative N PH (test code = UPH) 6.0 4.5-8.0 A Protein (test code = UPROT) Negative Negative N Urobilinogen (test code = U UROB) 0.2 >0.2 N Nitrite (test code = UNITR) Negative Negative N Leukocyte Esterase (test code = Negative Negative N ULEUK) CULTURE, [id number] 08:00:00Specimen: Urine SpecimensCollected: 07/05/2020 03:00 Status: Final Last Updated: 07/07/2020 08:00 CULTURE (Final) (Final) No Growth After 48 HoursXR ABDOMEN 1 VIEW (KUB)2020-07-05 04:07:04 [facility] ([facility]/)Name: LAUREN BETH : [id number] Sex: FPROCEDURE INFORMATION:Exam: XR Abdomen, 1 ViewExam date and time: 07/05/2020 3:13 AMAge: 34 years oldClinical indication: Abdominal pain; Generalized; Prior surgery; Surgery type:HysterectomyTECHNIQUE:Imaging protocol: XR of the abdomen.Views: Frontal supine view of the abdomen. 1View.COMPARISON:CT ABDOMEN/PELVIS W/CONTRAST 06/07/2020 4:15 PMFINDINGS:Gastrointestinal tract: Surgical changes of the partially visualized stomach.Nonobstructed bowel gas pattern.Intraperitoneal space: Surgical clips right upper quadrant of the abdomen.Bones/joints: No acute findings.IMPRESSION:Nonobstructed bowel gas pattern.This Final report was electronically signed by Oskar Crnae MD on 4:06 AM CDT.Dictated By: OSKAR CRANE: 07/05/2020 04:06STAT LAB , [id number] 03:54:00 Test Item Value Reference Range Interpretation Comments (Urine) (test code = Negative PREGU) STAT LAB CHEM [id number] 03:53:00 Test Item Value Reference Range Interpretation Comments Sodium (test code = NA) 139 mmol/l 138-146 Potassium (test code = K) 3.7 mmol/l 3.5-4.9 Chloride (test code = CL) 107 mmol/l 98-109 IONIZED CALCIUM (test code = ICA) 1.04 1.12-1.32 A CO2 (test code = CO2) 25 mmol/l 24-29 Glucose (test code = GLU) 97 mg/dl 70-105 BUN (test code = BUN) 15 mg/dl 6-17 Creatinine (test code = CREA) 0.5 mg/dl 0.6-1.3 L STAT LAB CBC WITH AUTO [id number] 03:51:00 Test Item Value Reference Range Interpretation Comments WBC (test code = WBC) 7.87 10\\S\\3/ul 4.80-10.80 RBC (test code = RBC) 3.92 10\\S\\6/ul 4.20-5.40 L Hemoglobin (test code = HGB) 11.5 gm/dl 12.0-14.0 L Hematocrit (test code = HCT) 34.3 % 37.0-47.0 L MCV (test code = MCV) 87.5 fL 81.0-99.0 MCH (test code = MCH) 29.3 pg 27.0-31.0 MCHC (test code = MCHC) 33.5 gm/dl 33.0-37.0 Platelet (test code = PLT) 241 10\\S\\3/ul 130-400 RDW (test code = RDWVC) 12.8 % 11.5-14.5 MPV (test code = MPV) 8.7 fL 7.4-10.4 A NE% (test code = NE) 60.0 % 42.0-75.0 LY% (test code = LY) 32.9 % 13.0-42.0 MO% (test code = MO) 5.7 % 4.0-14.0 EO% (test code = EO) 0.9 % 1.0-3.0 L BA% (test code = BA) 0.1 % 1.0-3.0 L IG% (test code = IG%) 0.4 % 0.0-0.4 URINALYSIS WITH [id number] 03:33:00 Test Item Value Reference Range Interpretation Comments Color (test code = UCOLR) Yellow Clarity (test code = UCLAR) Clear Glucose (test code = UGLUC) NEGATIVE NEGATIVE N Bilirubin (test code = UBILI) Small NEGATIVE A Ketones (test code = UKET) TRACE NEGATIVE A Specific [place] (test code = USPGR) 1.020 1.005-1.030 A Blood (test code = UBLD) NEGATIVE NEGATIVE N PH (test code = UPH) 6.5 4.5-8.0 A Protein (test code = UPROT) NEGATIVE NEGATIVE N Urobilinogen (test code = U UROB) 0.2 >0.2 N Nitrite (test code = UNITR) NEGATIVE NEGATIVE N Leukocyte Esterase (test code = NEGATIVE NEGATIVE N ULEUK) WBC (test code = WBCUR) 0-5 0-5 N RBC (test code = RBCUR) 0-5 0-5 N Epithial Cells (test code = U EPI) 75-100 0-10 A Bacteria (test code = UBACT) Trace None Seen,Trace N CT ABDOMEN/PELVIS [id number] 16:44:35 [facility] ([facility])Name: LAUREN BETH : [id number] Sex: FProcedure: CT ABDOMEN/PELVIS W/CONTRASTOrder date: 06/07/2020 3:47 PMOrderingProvider: REHAN COTTONClinical Indication: [id number]: Left flank painComparison: 06/07/20Technique: Multiple axial helical CT images of the abdomen and pelvis wereobtained with IV contrast. Coronal and sagittal reformatted images were alsoobtained.This exam was performed according to the our departmental dose- optimizationprogram which includes automated exposure control, adjustment of the mA and/orkV according to patient size and/or use of iterative reconstruction techniques.Findings:Lung bases are clear and the heart apex within normal limits. No inferiormediastinal abnormality. Inferior osseous structures of the thorax areunremarkable.Status post cholecystectomy and gastric sleeve procedure. Mild hepatic steatosisis noted.Stable 2 mm nonobstructing stone seen within the midpole of the left kidney.The remaining solid abdominal viscera are unremarkable. Stomach, small and largebowel are within normal limits.No peritoneal or retroperitoneal masses or adenopathy. No free fluid orpneumoperi toneum.No evidence of acute appendicitis.Urinary bladder is unremarkable. No pelvic masses or adenopathy seen. Perirectalfat planes are preserved.Osseous structures of the abdomen and pelvis are nonacute.Impression:1. Nonacute CT of the abdomen and pelvis with IV contrast.2. Other stable chronic incidental findings as above.This final report was electronically signed by Dr Wiley Velázquez MD 06/07/20204:38 PMDictated By: WILEY VELÁZQUEZDate: 06/07/2020 16:38URINALYSIS WITH [id number] 15:22:00 Test Item Value Reference Range Interpretation Comments Color (test code = UCOLR) Yellow Clarity (test code = UCLAR) Clear Glucose (test code = UGLUC) NEGATIVE NEGATIVE N Bilirubin (test code = UBILI) NEGATIVE NEGATIVE N Ketones (test code = UKET) NEGATIVE NEGATIVE N Specific [place] (test code = USPGR) 1.020 1.005-1.030 A Blood (test code = UBLD) NEGATIVE NEGATIVE N PH (test code = UPH) 6.0 4.5-8.0 A Protein (test code = UPROT) NEGATIVE NEGATIVE N Urobilinogen (test code = U UROB) 0.2 >0.2 N Nitrite (test code = UNITR) NEGATIVE NEGATIVE N Leukocyte Esterase (test code = NEGATIVE NEGATIVE N ULEUK) WBC (test code = WBCUR) 0-5 0-5 N RBC (test code = RBCUR) 0-5 0-5 N Epithial Cells (test code = U EPI) 0-5 0-10 A Bacteria (test code = UBACT) Trace None Seen,Trace N STAT LAB CHEM [id number] 15:10:00 Test Item Value Reference Range Interpretation Comments Sodium (test code = NA) 139 mmol/l 138-146 Potassium (test code = K) 3.8 mmol/l 3.5-4.9 Chloride (test code = CL) 106 mmol/l 98-109 IONIZED CALCIUM (test code = ICA) 1.06 1.12-1.32 A CO2 (test code = CO2) 23 mmol/l 24-29 L Glucose (test code = GLU) 77 mg/dl 70-105 BUN (test code = BUN) 9 mg/dl 6-17 Creatinine (test code = CREA) 0.4 mg/dl 0.6-1.3 L STAT LAB CBC WITH AUTO [id number] 15:08:00 Test Item Value Reference Range Interpretation Comments WBC (test code = WBC) 8.59 10\\S\\3/ul 4.80-10.80 RBC (test code = RBC) 3.99 10\\S\\6/ul 4.20-5.40 L Hemoglobin (test code = HGB) 12.0 gm/dl 12.0-14.0 Hematocrit (test code = HCT) 34.9 % 37.0-47.0 L MCV (test code = MCV) 87.5 fL 81.0-99.0 MCH (test code = MCH) 30.1 pg 27.0-31.0 MCHC (test code = MCHC) 34.4 gm/dl 33.0-37.0 Platelet (test code = PLT) 246 10\\S\\3/ul 130-400 RDW (test code = RDWVC) 12.9 % 11.5-14.5 MPV (test code = MPV) 8.6 fL 7.4-10.4 A NE% (test code = NE) 70.0 % 42.0-75.0 LY% (test code = LY) 24.1 % 13.0-42.0 MO% (test code = MO) 4.8 % 4.0-14.0 EO% (test code = EO) 0.5 % 1.0-3.0 L BA% (test code = BA) 0.1 % 1.0-3.0 L IG% (test code = IG%) 0.5 % 0.0-0.[address] ABD/ PELVIS W/O CON ([facility])2020-06-07 14:56:05 [facility] ([facility]/)Name: LAUREN BETH : [id number] Sex: FProcedure: CT ABD/ PELVIS W/O CON ([facility]ONE)Order date: 06/07/2020 2:18 PMOrdering Provider: REHAN Farrellinical Indication: [id number]: Left flank painComparison: 05/31/20TECHNIQUE: Using a helical scanner, sequential axial imaging of the abdomen andpelvis was obtained without the administration of intravenous or oral contrast.The exam was obtained from the superior aspect of each kidney through the pubicsymphysis. 2-D sagittal and coronal reconstructions were obtained.This exam was performed according to the our departmental dose- optimizationprogram which includes automated exposure control, adjustment of the mA and/orkV according to patient size and/or use of iterative reconstruction techniques.Findings:The right kidney is normal in size and shape.There are no calculi.There are no masses.There is no hydronephrosis.The left kidney is normal in size and shape.2 mm nonobstructing calculus within the midpole. There are no masses.There is no hydronephrosis.The urinary bladder has a normal appearance.There are no inflammatory changes in the abdomen or pelvis.Prior gastric sleeve procedure. Status post cholecystectomy.The remaining visualized solid and hollow abdominal viscera are unremarkable.Osseous structures are nonacute.Impression:1. Nonacute CT of the abdomen and pelvis without contrast.2. 2 mm nonobstructing stone seen within the midpole of the left kidney.3. Postoperative changes as above.This final report was electronically signed by Dr Wiley Velázquez MD 06/07/20202:49 PMDictated By: WILEY VELÁZQUEZDate: 06/07/2020 14:49CT ABDOMEN/PELVIS W/O [id number] 12:27:07NPO 4 hours. Do not withhold meds hyst [facility] ([facility]/)Name: LAUREN BETH : [id number] Sex: FProcedure: CT ABDOMEN/PELVIS W/O CONTRASTOrder Date: 05/31/2020 10:25 AMOrdering Provider: MAHSA Guamaninical Indication: [id number]: Pain radiating to right flankComparison: March 20, 2020Technique: Using a helical scanner, sequential axial imaging of the abdomen andpelvis was obtained without the administration of oral or IV contrast. The examextended from the level of the lung bases superiorly to the level of the pubicsymphysis inferiorly. 2-D sagittal and coronal reconstructed images wereobtained. This exam was performed according to the departmentaldose-optimization program which includes automated exposure control, adjustmentof the mA and/or kV according to patient size and/or use of iterativereconstruction techniques.Findings:The lung bases are clear. No basilar consolidation or effusion.The liver is normal in size and density. Hepatic contour is normal. There are nohepatic masses. No intrahepatic ductal dilatation.The gallbladder has been removed.The spleen is normal in size and density. There are no intrinsic splenic masses.There is no evidence of a subca psular hematoma or fluid collection.The pancreas is normal in size and density. There are no pancreaticcalcifications or masses. There is no pancreatic ductal dilatation.The adrenal glands are normal in size bilaterally.There are no adrenal masses bilaterally.The right kidney is normal in size and shape.There are several 1-2 mm calculi within the right renal collecting system. Noureteral calculi or hydronephrosis.No masses.The left kidney is normal in size and shape.There are several 1-2 mm calculi within the left renal collecting system. Noureteral calculi or hydronephrosis.No masses.Aorta is normal in size and diameter. There is no aneurysm.The IVC is normal in size and location.There is no lymphadenopathy in the abdomen, pelvis, or either inguinal region.Postoperative change involving the stomach which may represent a gastric sleeve.There is no small or large bowel distention. There is no bowel thickening. Thereare no inflammatory changes in the abdomen or pelvis.The appendix is visualized and normal in diameter. There is no periappendicealsoft tissue stranding. No CT findings of appendicitis.Urinary bladder has a normal appearance.The uterus has been removed.No inguinal masses.There is noskeletal lesion.IMPRESSION:1. Bilateral nonobstructive nephrolithiasis.2. No acute inflammatory change in the abdomen or pelvis.3. Postoperative change involving the stomach.4. Postoperative change consisting of cholecystectomy and hysterectomy.5. No other significant findings.This final report was monik ctronically signed by Dr Farzad Dewitt MD 05/31/202012:20 PMDictated By: FARZAD DEWITTDate: 05/31/2020 12:[id number] 11:48:00 Test Item Value Reference Range Interpretation Comments Lipase (test code = LIPA) 116 U/L 73-393 STAT LAB URINALYSIS WITHOUT [id number] 10:59:00 Test Item Value Reference Range Interpretation Comments Color (test code = UCOLR) Light yellow Lt. Yellow A Clarity (test code = UCLAR) Clear Glucose (test code = UGLUC) Negative Negative N Bilirubin (test code = UBILI) Negative Negative N Ketones (test code = UKET) Negative Negative N Specific [place] (test code = 1.025 1.005-1.030 A USPGR) Blood (test code = UBLD) Negative Negative N PH (test code = UPH) 6.0 4.5-8.0 A Protein (test code = UPROT) Negative Negative N Urobilinogen (test code = U 0.2 >0.2 N UROB) Nitrite (test code = UNITR) Negative Negative N Leukocyte Esterase (test code = Negative Negative N ULEUK) STAT LAB CBC WITH AUTO [id number] 10:58:00 Test Item Value Reference Range Interpretation Comments WBC (test code = WBC) 7.55 10\\S\\3/ul 4.80-10.80 RBC (test code = RBC) 4.24 10\\S\\6/ul 4.20-5.40 Hemoglobin (test code = HGB) 12.5 gm/dl 12.0-14.0 Hematocrit (test code = HCT) 37.3 % 37.0-47.0 MCV (test code = MCV) 88.0 fL 81.0-99.0 MCH (test code = MCH) 29.5 pg 27.0-31.0 MCHC (test code = MCHC) 33.5 gm/dl 33.0-37.0 Platelet (test code = PLT) 208 10\\S\\3/ul 130-400 RDW (test code = RDWVC) 13.0 % 11.5-14.5 MPV (test code = MPV) 9.4 fL 7.4-10.4 A NE% (test code = NE) 74.6 % 42.0-75.0 LY% (test code = LY) 19.3 % 13.0-42.0 MO% (test code = MO) 4.6 % 4.0-14.0 EO% (test code = EO) 0.9 % 1.0-3.0 L BA% (test code = BA) 0.1 % 1.0-3.0 L IG% (test code = IG%) 0.5 % 0.0-0.4 H STAT LAB CHEM [id number] 10:53:00 Test Item Value Reference Range Interpretation Comments Sodium (test code = NA) 139 mmol/l 138-146 Potassium (test code = K) 4.2 mmol/l 3.5-4.9 Chloride (test code = CL) 107 mmol/l 98-109 IONIZED CALCIUM (test code = ICA) 1.08 1.12-1.32 A CO2 (test code = CO2) 23 mmol/l 24-29 L Glucose (test code = GLU) 85 mg/dl 70-105 BUN (test code = BUN) 14 mg/dl 6-17 Creatinine (test code = CREA) 0.5 mg/dl 0.6-1.3 L XR ABDOMEN 1 VIEW (KUB)2020-04-25 21:02:16 [facility] ([facility])Name: LAUREN BETH : [id number] Sex: FPROCEDURE INFORMATION:Exam: XR Abdomen, 1 ViewExam date and time: 04/25/2020 8:34 PMAge: 34 years oldClinical indication: Nausea and vomiting and other: Diarrhea; Abdominal pain;Generalized; Prior surgery; Surgery type: HysterectomyTECHNIQUE:Imaging protocol: XR of the abdomen.Views: Frontal supine view of the abdomen. 1 View.COMPARISON:CT ABDOMEN/PELVIS W/CONTRAST 10/07/2019 10:23 PMFINDINGS:Gastrointestinal tract: Unremarkable. No bowel dilation.Bones/joints: Unremarkable.IMPRESSION:No acute findings.This Final report was electronically signed by Tejas Rodriguez MD on 25 Apr 20209:02 PM CDT.Dictated By: TEJAS RODRIGUEZDate: 04/25/2020 21:02URINALYSIS WITH [id number] 18:57:00 Test Item Value Reference Range Interpretation Comments Color (test code = UCOLR) Yellow Lt. Yellow A Clarity (test code = UCLAR) Clear Glucose (test code = UGLUC) Negative Negative N Bilirubin (test code = UBILI) Negative Negative N Ketones (test code = UKET) Negative Negative N Specific [place] (test code = 1.020 1.005-1.030 A USPGR) Blood (test code = UBLD) Negative Negative N PH (test code = UPH) 7.0 4.5-8.0 A Protein (test code = UPROT) Negative Negative N Urobilinogen (test code = U UROB) 0.2 >0.2 N Nitrite (test code = UNITR) Negative Negative N Leukocyte Esterase (test code = Negative Negative N ULEUK) WBC (test code = WBCUR) 0-1 0-5 A RBC (test code = RBCUR) None Seen 0-5 A Epithial Cells (test code = U EPI) TNTC 0-10 A Mucous (test code = UMUC) Trace None Seen A Bacteria (test code = UBACT) 4+ None Seen,Trace A STAT LAB CBC WITH AUTO [id number] 18:55:00 Test Item Value Reference Range Interpretation Comments WBC (test code = 7.68 10\\S\\3/ul 4.80-10.80 WBC) RBC (test code = 4.19 10\\S\\6/ul 4.20-5.40 L RBC) Hemoglobin (test 12.3 gm/dl 12.0-14.0 code = HGB) Hematocrit (test 36.7 % 37.0-47.0 L code = HCT) MCV (test code = 87.6 fL 81.0-99.0 MCV) MCH (test code = 29.4 pg 27.0-31.0 MCH) MCHC (test code = 33.5 gm/dl 33.0-37.0 MCHC) Platelet (test code 208 10\\S\\3/ul 130-400 = PLT) RDW (test code = 13.5 % 11.5-14.5 RDWVC) MPV (test code = 9.5 fL 7.4-10.4 A MPV) NE% (test code = NE) 69.0 % 42.0-75.0 LY% (test code = LY) 25.3 % 13.0-42.0 MO% (test code = MO) 4.8 % 4.0-14.0 EO% (test code = EO) 0.5 % 1.0-3.0 L BA% (test code = BA) 0.1 % 1.0-3.0 L IG% (test code = 0.3 % 0.0-0.4 IG%) Platelet Morphology Platelet clumping No previous value (test code = was reported. A PLTMORPH) value of Platel et clumping was entered by [id number] on 04/25/2020 18:5 5 STAT LAB CHEM [id number] 18:17:00 Test Item Value Reference Range Interpretation Comments Sodium (test code = NA) 140 mmol/l 138-146 Potassium (test code = K) 4.0 mmol/l 3.5-4.9 Chloride (test code = CL) 106 mmol/l 98-109 IONIZED CALCIUM (test code = ICA) 1.10 1.12-1.32 A CO2 (test code = CO2) 22 mmol/l 24-29 L Glucose (test code = GLU) 95 mg/dl 70-105 BUN (test code = BUN) 10 mg/dl 6-17 Creatinine (test code = CREA) 0.4 mg/dl 0.6-1.3 L CULTURE, ANAEROBE [id number] 15:20:00FIRST DRAW = 1 aerobic and 1 anerobic CultureSpecimen: BloodCollected: 03/20/2020 18:30 Status: Final Last Updated: 03/26/2020 15:19 (1) FIRST DRAW = 1 aerobic and 1 anerobic Culture CULTURE (Final) (Final) No Growth After 5 DaysCULTURE, BLOOD 2020-03-26 15:20:00FIRST DRAW = 1 aerobic and 1 anerobic CultureSpecimen: BloodCollected: 03/20/2020 18:30 Status: Final Last Updated: 03/26/2020 15:19 (1) FIRST DRAW = 1 aerobic and 1 anerobic Culture CULTURE (Final) (Final) No Growth After 5 DaysCT ABDOMEN/PELVIS [id number] 21:46:442 weeks s/p adhesolysis. Vomiting/pain/fever. Please do CT with PO and IV contrastProcedures: CT ABDOMEN/PELVIS W/CONTRASTExam Date: 03/20/2020 6:04 PMOrdering Physician: REHAN COTTONClinical Indication: [id number]: Abdominal painComparison: CT abdomen/pelvis, 02/25/20TECHNIQUE: Spiral multislice scanning was obtained from the lung bases throughthe bony pelvis with intravenous and oral contrast enhancement. 2-Dreconstructions were obtained according to our usual protocol.This exam was performed according to departmental dose-optimization programwhich includes automatedexposure control, adjustment of the mA and/or kVaccording to patient size and/or use of iterative reconstruction techniques.Findings:THORAX:Lung bases: No significant abnormality of the lung bases.Heart: No significant abnormality of the visualized cardiac or mediastinalstructures.UPPER ABDOMEN:Liver: Normal.Gallbladder: Absent. Surgical clips within gallbladder fossa.Pancreas: Normal.Spleen: Normal.Adrenals: Normal.URINARY:Kidneys: Normal symmetric cortical enhancement. No hydronephrosis ornephrolithiasis.Ureters: The ureters are of normal course and caliber.Urinary bladder: No significant abnormality of the urinary bladder.REPRODUCTIVE:Organs: Postsurgical changes status post hysterectomy. No significant freefluid in the pelvis.Free fluid: None.Incidental pelvic phleboliths are noted.GASTROINTESTINAL:Large bowel: Mild wall thickening of the large bowel with faint adjacentinflammatory changes surrounding the sigmoid colon.Appendix: The appendix is not clearly demonstrated on this exam.Small bowel: Enteric contrast opacifies normal caliber loops of small bowel. Noevidence of obstruction.Stomach: Postsurgical change status post gastric reduction.Mesentery: Normal.RETROPERITONEUM:Aorta: Normal.Lymphadenopathy: No retroperitoneal lymphadenopathy.Masses: None.OSSEOUS: Degenerative changes of the spine; otherwise, no significant osseouslesions.OTHER: No significant abnormality of the remaining soft tissuesIMPRESSION:1. Mild wall thickening of the large bowel with faint adjacent inflammatorychanges surrounding the sigmoid colon, possible colitis.2. Chronic findings, as above.This final report was electronically signed by Dr Elmer Juárez MD03/20/2020 9:40 PMDictated By: ELMER PHAMDate: 03/20/2020 21:40HEPATIC FUNCTION PANEL (LIVER)2020-03-20 19:24:00 Test Item Value Reference Range Interpretation Comments T Protein (test code = TP) 8.7 gm/dl 6.4-8.2 H Albumin (test code = ALB) 3.9 gm/dl 3.4-5.0 AST (SGOT) (test code = AST) 25 U/L 15-37 ALT (SGPT) (test code = ALT) 32 U/L 13-61 Alkaline Phos (test code = ALKP) 106 U/L 45-117 Total Bilirubin (test code = TBIL) 0.4 mg/dl 0.2-1.0 Direct Bilirubin (test code = DBIL) 0.1 mg/dl 0.0-0.3 Indirect Bilirubin (test code = 0.3 mg/dl 0.0-1.1 IBIL) [id number] 19:24:00 Test Item Value Reference Range Interpretation Comments Lipase (test code = LIPA) 69 U/L 73-393 L [id number] 19:24:00 Test Item Value Reference Range Interpretation Comments Magnesium (test code = MG) 2.0 mg/dl 1.6-2.6 STAT LAB CHEM [id number] 18:43:00 Test Item Value Reference Range Interpretation Comments Sodium (test code = NA) 139 mmol/l 138-146 Potassium (test code = K) 3.9 mmol/l 3.5-4.9 Chloride (test code = CL) 104 mmol/l 98-109 IONIZED CALCIUM (test code = ICA) 1.10 1.12-1.32 A CO2 (test code = CO2) 23 mmol/l 24-29 L Glucose (test code = GLU) 95 mg/dl 70-105 BUN (test code = BUN) 13 mg/dl 6-17 Creatinine (test code = CREA) 0.5 mg/dl 0.6-1.3 L STAT LAB LACTIC [id number] 18:42:00 Test Item Value Reference Range Interpretation Comments LACTATE (test code = 2.50 mmol/l 0.90-1.70 HH R&RB sy rene hassan rn LAC) @1842 STAT LAB CBC WITH AUTO [id number] 18:41:00 Test Item Value Reference Range Interpretation Comments WBC (test code = WBC) 7.74 10\\S\\3/ul 4.80-10.80 RBC (test code = RBC) 4.57 10\\S\\6/ul 4.20-5.40 Hemoglobin (test code = HGB) 13.4 gm/dl 12.0-14.0 Hematocrit (test code = HCT) 38.5 % 37.0-47.0 MCV (test code = MCV) 84.2 fL 81.0-99.0 MCH (test code = MCH) 29.3 pg 27.0-31.0 MCHC (test code = MCHC) 34.8 gm/dl 33.0-37.0 Platelet (test code = PLT) 333 10\\S\\3/ul 130-400 RDW (test code = RDWVC) 12.9 % 11.5-14.5 MPV (test code = MPV) 8.4 fL 7.4-10.4 A NE% (test code = NE) 67.7 % 42.0-75.0 LY% (test code = LY) 25.6 % 13.0-42.0 MO% (test code = MO) 5.0 % 4.0-14.0 EO% (test code = EO) 0.9 % 1.0-3.0 L BA% (test code = BA) 0.4 % 1.0-3.0 L IG% (test code = IG%) 0.4 % 0.0-0.4 SP PERC PLMNT MIDLINE NO PORT > 5 y/o [id number] 13:21:10Procedure: SP PERC PLMNT MIDLINE NO PORT > 5 y/o W/IMAGINGOrder Date: 03/15/2020 10:06 AMOrdering Provider: LIZBETH RUBIOERClinical Indication: Vascular accessTechnique:The patient was placed supine on the exam table with the left arm abducted. Anultrasound was performed to locate a proper venous access site. The upper armwas prepped and draped in the usual sterile fashion. Utilizing 1% lidocainesolution, the skin and subcutaneous tissues overlying the basilic vein wereanesthetized. The vein is patent. Then, under ultrasound guidance, the vein waspunctured with a micropuncture needle and a0.018 guidewire was advanced intothe selected vessel. The needle was removed and the 20 gauge Powerg lidecatheter was advanced over the wire into the left axillary vein. The wire wasremoved. The catheter was secured to the skin in the usual fashion.Occupational Health Specialist images were recorded and stored in the medical record fordocumentation. The patient tolerated the procedure well and there were noimmediate complications.Impression:1. Successful upper extremity vascular access.This final report was electronically signed by Dr Farzad Dewitt MD 03/15/20201:14 PMDictated By: FARZAD DEWITT.Date: 03/15/2020 13:14CORONAVIRUS 2019 (IN HOUSE)2020-03-13 21:03:00 Test Item Value Reference Range Interpretation Comments FT (test code Negative Negative N The BioGX SARS -CoV-2 = COVID) (qualifier value) Reagents f or BD MAX System, the Bio Fire Covid-19, and t he Cepheid Covid-1 9 is for in vitro us e under FDA Emergency U se Authorization o nly. Indeterminate r esults recommend recol lection of specimen. XR ABD SERIES W/PA [id number] 17:33:07Procedure: XR ABD SERIES W/PA CXROrder Date: 03/13/2020 4:25 PMOrdering Provider: DR ELIUD STAFOFRDClinical Indication: R10.0: ACUTE ABDOMENComparison: NoneFindings:Lungs are clear. Heart size is within normal limits.Abdomen views show non-obstructive bowel gas pattern. No pneumoperitoneum.Moderatevolume stool burden.Surgical clips in the right upper quadrant of the abdomen.Impression:No acute pulmonary process.Nonobstructive bowel gas pattern.This final report was electronically signed by Dr Silver Benitez MD 03/13/20205:26 PMDictated By: GLORY BENITEZKDate: 03/13/2020 17:26STAT LAB CBC WITH AUTO [id number] 17:23:00 Test Item Value Reference Range Interpretation Comments WBC (test code = 8.28 10\\S\\3/ul 4.80-10.80 WBC) RBC (test code = 4.40 10\\S\\6/ul 4.20-5.40 RBC) Hemoglobin (test 12.7 gm/dl 12.0-14.0 code = HGB) Hematocrit (test 37.4 % 37.0-47.0 code = HCT) MCV (test code = 85.0 fL 81.0-99.0 MCV) MCH (test code = 28.9 pg 27.0-31.0 MCH) MCHC (test code = 34.0 gm/dl 33.0-37.0 MCHC) Platelet (test code 186 10\\S\\3/ul 130-400 = PLT) RDW (test code = 12.9 % 11.5-14.5 RDWVC) MPV (test code = 10.0 fL 7.4-10.4 A MPV) NE% (test code = NE) 68.4 % 42.0-75.0 LY% (test code = LY) 23.6 % 13.0-42.0 MO% (test code = MO) 5.6 % 4.0-14.0 EO% (test code = EO) 1.4 % 1.0-3.0 BA% (test code = BA) 0.4 % 1.0-3.0 L IG% (test code = 0.6 % 0.0-0.4 H IG%) Platelet Morphology Platelet clumping No previous value (test code = was reported. A PLTMORPH) value of Platel et clumping was entered by [id number] on 03/13/2020 17:23 [id number] 17:23:00 Test Item Value Reference Range Interpretation Comments Lipase (test code = LIPA) 61 U/L 73-393 L HEPATIC FUNCTION PANEL (LIVER)2020-03-13 17:23:00 Test Item Value Reference Range Interpretation Comments T Protein (test code = TP) 7.6 gm/dl 6.4-8.2 Albumin (test code = ALB) 3.1 gm/dl 3.4-5.0 L AST (SGOT) (test code = AST) 31 U/L 15-37 ALT (SGPT) (test code = ALT) 20 U/L 13-61 Alkaline Phos (test code = ALKP) 93 U/L 45-117 Total Bilirubin (test code = TBIL) 0.4 mg/dl 0.2-1.0 Direct Bilirubin (test code = <0.1 mg/dl 0.0-0.3 N DBIL) Indirect Bilirubin (test code = 0.4 mg/dl 0.0-1.1 IBIL) URINALYSIS WITH [id number] 16:54:00 Test Item Value Reference Range Interpretation Comments Color (test code = UCOLR) Yellow Lt. Yellow A Clarity (test code = UCLAR) Clear Glucose (test code = UGLUC) Negative Negative N Bilirubin (test code = UBILI) Negative Negative N Ketones (test code = UKET) Negative Negative N Specific [place] (test code = >=1.030 1.005-1.030 A USPGR) Blood (test code = UBLD) Negative Negative N PH (test code = UPH) 7.0 4.5-8.0 A Protein (test code = UPROT) Negative Negative N Urobilinogen (test code = U UROB) 0.2 >0.2 N Nitrite (test code = UNITR) Negative Negative N Leukocyte Esterase (test code = Negative Negative N ULEUK) WBC (test code = WBCUR) None Seen 0-5 A RBC (test code = RBCUR) None Seen 0-5 A Epithial Cells (test code = U EPI) TNTC 0-10 A Bacteria (test code = UBACT) 4+ None Seen,Trace A STAT LAB CHEM [id number] 16:37:00 Test Item Value Reference Range Interpretation Comments Sodium (test code = NA) 139 mmol/l 138-146 Potassium (test code = K) 4.3 mmol/l 3.5-4.9 Chloride (test code = CL) 107 mmol/l 98-109 IONIZED CALCIUM (test code = ICA) 0.95 1.12-1.32 A CO2 (test code = CO2) 22 mmol/l 24-29 L Glucose (test code = GLU) 82 mg/dl 70-105 BUN (test code = BUN) 9 mg/dl 6-17 Creatinine (test code = CREA) 0.4 mg/dl 0.6-1.3 L SP PERC PLMNT MIDLINE NO PORT > 6 y/o [id number] 12:23:44Procedure: SP PERC PLMNT MIDLINE NO PORT > 6 y/o W/IMAGINGOrder Date: 03/02/2020 11:03 AMOrderingProvider: LAURA Lucasinical Indication: Vascular accessTechnique:The patient was placed supine on the exam table with the left arm abducted. Anultrasound was performed to locate a proper venous access site. The upper armwas prepped and draped in the usual sterile fashion. Utilizing 1% lidocainesolution, the skin and subcutaneous tissues overlying the basilic vein wereanesthetized. Then, under ultrasound guidance, the vein was punctured with amicropuncture needle and a 0.018 guidewire wasadvanced into the selectedvessel. The needle was removed and the 20 gauge Powerglide catheter wasadvanced over the wire into the left axillary vein. The wire was removed. Thecatheter was secured tothe skin in the usual fashion. The patient toleratedthe procedure well and there were no immediate complications.Images were permanently stored on a PACS storage system and also to document thepatencyof the vessel.Impression:1. Successful upper extremity vascular access.This final report was electronically signed by Dr Silver Benitez MD 03/02/202012:17 PMDictated By: GLORY BENITEZKDate: 03/02/2020 12:17CORONAVIRUS 2018 (IN HOUSE)2020-03-01 18:48:00 Test Item Value Reference Range Interpretation Comments FT (test code Negative Negative N The BioGX SARS -CoV-2 = COVID) (qualifier value) Reagents f or BD MAX System, the Bio Fire Covid-19, and t he Cepheid Covid-1 9 is for in vitro us e under FDA Emergency U se Authorization o nly. Indeterminate r esults recommend recol lection of specimen. PT AND [id number] 11:51:00 Test Item Value Reference Range Interpretation Comments Protime (test code 9.8 seconds 9.5-12.1 = PT) INR (test code = 0.9 0.9-1.1 INR results are intended INR) ONLY to monitor Oral Anticoagulant t herapy in stablized pa tients. The INR Therape utic Range is 2.0 - 3.0 Patients with a mechanical hear t, the INR Range is 2. 5 - 3.5 [id number] 11:51:00 Test Item Value Reference Range Interpretation Comments aPTT (test code = PTT) 27.4 seconds 23.9-30.7 CBC (HEMOGRAM ONLY)2020-03-01 11:44:00 Test Item Value Reference Range Interpretation Comments WBC (test code = 7.50 10\\S\\3/ul 4.80-10.80 WBC) RBC (test code = 4.63 10\\S\\6/ul 4.20-5.40 RBC) Hemoglobin (test 12.9 gm/dl 12.0-14.0 code = HGB) Hematocrit (test 39.1 % 37.0-47.0 code = HCT) MCV (test code = 84.4 fL 81.0-99.0 MCV) MCH (test code = 27.9 pg 27.0-31.0 MCH) MCHC (test code = 33.0 gm/dl 33.0-37.0 MCHC) RDW (test code = 13.0 % 11.5-14.5 RDWVC) Platelet (test code 292 10\\S\\3/ul 130-400 = PLT) MPV (test code = 8.7 fL 7.4-10.4 A "NOT MEASUR ED" MPV) RESULTS ARE DIS PLAYED WHEN THE INSTRU MENT HAS A SUPPRESSE D OR UNREPORTABLE RE SULT. THIS WILL MOST OFTEN HAPPEN WITH THE MPV WHEN THERE IS A N ABNORMAL PLATEL ET DISTRIBUTION DU E TO A CRITICAL LOW VA LUE OR PLATELET CLUMPI NG. THE RDW MAY BE SUPPRESSED IF T HERE ARE MULTIPLE PE AKS PRESENT ON THE RBC HISTOGRAM. IN THIS CASE, A MANUAL REVIEW OF THE SLIDE WI LL BE PERFORMED, AND RBC MORPHOLOGY WILL BE NOTED ON THE RE PORT. CULTURE, [id number] 08:08:00Specimen: Urine RandomCollected: 02/25/2020 11:27 Status: Final Last Updated: 02/27/2020 08:08 CULTURE (Final) (Final) No Growth After 48 [id number] 05:38:00 Test Item Value Reference Range Interpretation Comments Sodium (test code = 137 mmol/l 137-145 NA) Potassium (test 4.1 mmol/l 3.5-5.1 code = K) Chloride (test code 110 mmol/l 98-107 H = CL) Calcium (test code 7.7 mg/dl 8.5-10.1 L = CALC) CO2 (test code = 20 mmol/l 21-32 L CO2) Glucose (test code 90 mg/dl 74-106 = GLU) BUN (test code = 11.0 mg/dl 7.0-18.0 BUN) Creatinine (test 0.7 mg/dl 0.5-1.3 code = CREA) EGFR if >60 Turkish (test code mL/min/1.73m\\ = EGFRAA) S\\2 EGFR if Non- >60 Estimate d Glomerular Turkish (test code mL/min/1.73m\\ Filtrat ion Rate (eGFR) = EGFRNA) S\\2 Reference Inter vals Decision Points for 18 years and older and average body ma ss: >= 60 Does not exc lude kidney disease. 30 - 59 Suggests modera te chronic kidney disease and indicat es the need for furthe r investigation including asses sment of proteinuria and cardiovascular factors. < 30 Usually in dicates a need for refe rral for assessment and management of c hronic kidney failure. TSH (Ultra Sensitive)2020-02-26 05:38:00 Test Item Value Reference Range Interpretation Comments TSH (test code = TSH) 0.04 mIU/L 0.35-3.74 L CBC WITH AUTO [id number] 05:18:00 Test Item Value Reference Range Interpretation Comments WBC (test code = 6.45 10\\S\\3/ul 4.80-10.80 WBC) RBC (test code = 4.30 10\\S\\6/ul 4.20-5.40 RBC) Hemoglobin (test 12.0 gm/dl 12.0-14.0 code = HGB) Hematocrit (test 38.4 % 37.0-47.0 code = HCT) MCV (test code = 89.3 fL 81.0-99.0 MCV) MCH (test code = 27.9 pg 27.0-31.0 MCH) MCHC (test code = 31.3 gm/dl 33.0-37.0 L MCHC) RDW (test code = 13.2 % 11.5-14.5 RDWVC) Platelet (test code 135 10\\S\\3/ul 130-400 = PLT) MPV (test code = 8.9 fL 7.4-10.4 A "NOT MEASUR ED" MPV) RESULTS ARE DIS PLAYED WHEN THE INSTRU MENT HAS A SUPPRESSE D OR UNREPORTABLE RE SULT. THIS WILL MOST OFTEN HAPPEN WITH THE MPV WHEN THERE IS A N ABNORMAL PLATEL ET DISTRIBUTION DU E TO A CRITICAL LOW VA LUE OR PLATELET CLUMPI NG. THE RDW MAY BE SUPPRESSED IF T HERE ARE MULTIPLE PE AKS PRESENT ON THE RBC HISTOGRAM. IN THIS CASE, A MANUAL REVIEW OF THE SLIDE WI LL BE PERFORMED, AND RBC MORPHOLOGY WILL BE NOTED ON THE RE PORT. NE% (test code = 56.1 % 42.0-75.0 NE) LY% (test code = 35.7 % 13.0-42.0 LY) MO% (test code = 6.0 % 4.0-14.0 MO) EO% (test code = 1.2 % 1.0-5.0 EO) BA% (test code = 0.5 % 0.0-3.0 BA) IG% (test code = 0.5 % 0.0-0.4 H IG%) CBC AUTO diffCORONAVIRUS 2018 (IN HOUSE)2020-02-25 14:06:00 Test Item Value Reference Range Interpretation Comments FT (test code Negative Negative N The BioGX SARS -CoV-2 = COVID) (qualifier value) Reagents f or BD MAX System, the Bio Fire Covid-19, and t he Cepheid Covid-1 9 is for in vitro us e under FDA Emergency U se Authorization o nly. Indeterminate r esults recommend recol lection of specimen. URINALYSIS WITH [id number] 12:56:00 Test Item Value Reference Range Interpretation Comments Color (test code = UCOLR) Yellow Lt. Yellow A Clarity (test code = UCLAR) Slightly Cloudy Glucose (test code = UGLUC) Negative Negative N Bilirubin (test code = UBILI) Negative Negative N Ketones (test code = UKET) Negative Negative N Specific [place] (test code = >=1.030 1.005-1.030 A USPGR) Blood (test code = UBLD) Negative Negative N PH (test code = UPH) 6.0 4.5-8.0 A Protein (test code = UPROT) Negative Negative N Urobilinogen (test code = U 0.2 >0.2 N UROB) Nitrite (test code = UNITR) Negative Negative N Leukocyte Esterase (test code Negative Negative N = ULEUK) WBC (test code = WBCUR) 0-5 0-5 N RBC (test code = RBCUR) 0-5 0-5 N Epithial Cells (test code = U 0-10 0-10 N EPI) Bacteria (test code = UBACT) Trace None Seen,Trace N [id number] 12:52:00 Test Item Value Reference Range Interpretation Comments Lipase (test code = LIPA) 90 U/L 73-393 HEPATIC FUNCTION PANEL (LIVER)2020-02-25 12:52:00 Test Item Value Reference Range Interpretation Comments T Protein (test code = TP) 7.0 gm/dl 6.4-8.2 Albumin (test code = ALB) 3.0 gm/dl 3.4-5.0 L AST (SGOT) (test code = AST) 14 U/L 15-37 L ALT (SGPT) (test code = ALT) 19 U/L 13-61 Alkaline Phos (test code = ALKP) 89 U/L 45-117 Total Bilirubin (test code = TBIL) 0.3 mg/dl 0.2-1.0 Direct Bilirubin (test code = <0.1 mg/dl 0.0-0.3 N DBIL) Indirect Bilirubin (test code = 0.3 mg/dl 0.0-1.1 IBIL) CT ABDOMEN/PELVIS [id number] 12:42:41NPO 4 hours. Do not withhold meds Procedure: CT ABDOMEN/PELVIS W/CONTRASTOrder date: 02/25/2020 11:26 AMOrdering Provider: LIZBETH LOPEZlinical Indication: Nausea and vomiting with abdominal pain.Comparison: October 07, 2019Technique:Multiple axial helical CT images of the abdomen and pelvis wereobtained with IV contrast. Coronal and sagittal reformatted images were alsoobtained.This exam was performed according to the our departmental dose-optimizationprogram which includes automated exposure control, adjustment of the mA and/orkV according to patient size and/or use of iterative reconstruction techniques.Findings:Lung bases areclear and the heart apex within normal limits. No inferiormediastinal abnormality. Inferior osseous structures of the thorax areunremarkable.Status post cholecystectomy. The solid abdominal viscera areunremarkable.Status post gastric sleeve procedure. Otherwise, the stomach, small, and largebowel arewithin normal limits.No peritoneal or retroperitoneal masses or adenopathy. No free fluid orpneumoper itoneum.Status post appendectomy.Urinary bladder is unremarkable. No pelvic masses or adenopathy seen. Perirectalfat planes are preserved.Osseous structures of the abdomen and pelvis are nonacute.Impression:Unremarkable CT of the abdomen and pelvis with IV contrast.This final report was electronicallysigned by Dr Wiley Velázquez MD 02/25/202012:36 PMDictated By: WILEY VELÁZQUEZDate: 02/25/2020 12:36STAT LAB CHEM [id number] 12:07:00 Test Item Value Reference Range Interpretation Comments Sodium (test code = NA) 138 mmol/l 138-146 Potassium (test code = K) 3.9 mmol/l 3.5-4.9 Chloride (test code = CL) 104 mmol/l 98-109 IONIZED CALCIUM (test code = ICA) 1.12 1.12-1.32 A CO2 (test code = CO2) 24 mmol/l 24-29 Glucose (test code = GLU) 106 mg/dl 70-105 H BUN (test code = BUN) 10 mg/dl 6-17 Creatinine (test code = CREA) 0.5 mg/dl 0.6-1.3 L STAT LAB CBC WITH AUTO [id number] 12:05:00 Test Item Value Reference Range Interpretation Comments WBC (test code = WBC) 6.84 10\\S\\3/ul 4.80-10.80 RBC (test code = RBC) 4.24 10\\S\\6/ul 4.20-5.40 Hemoglobin (test code = HGB) 12.1 gm/dl 12.0-14.0 Hematocrit (test code = HCT) 36.0 % 37.0-47.0 L MCV (test code = MCV) 84.9 fL 81.0-99.0 MCH (test code = MCH) 28.5 pg 27.0-31.0 MCHC (test code = MCHC) 33.6 gm/dl 33.0-37.0 Platelet (test code = PLT) 234 10\\S\\3/ul 130-400 RDW (test code = RDWVC) 12.9 % 11.5-14.5 MPV (test code = MPV) 8.6 fL 7.4-10.4 A NE% (test code = NE) 69.9 % 42.0-75.0 LY% (test code = LY) 23.7 % 13.0-42.0 MO% (test code = MO) 5.3 % 4.0-14.0 EO% (test code = EO) 0.7 % 1.0-3.0 L BA% (test code = BA) 0.1 % 1.0-3.0 L IG% (test code = IG%) 0.3 % 0.0-0.4 STAT LAB CBC WITH AUTO [id number] 03:15:00 Test Item Value Reference Range Interpretation Comments WBC (test code = WBC) 7.99 10\\S\\3/ul 4.80-10.80 RBC (test code = RBC) 4.04 10\\S\\6/ul 4.20-5.40 L Hemoglobin (test code = HGB) 11.8 gm/dl 12.0-14.0 L Hematocrit (test code = HCT) 34.5 % 37.0-47.0 L MCV (test code = MCV) 85.4 fL 81.0-99.0 MCH (test code = MCH) 29.2 pg 27.0-31.0 MCHC (test code = MCHC) 34.2 gm/dl 33.0-37.0 Platelet (test code = PLT) 223 10\\S\\3/ul 130-400 RDW (test code = RDWVC) 12.9 % 11.5-14.5 MPV (test code = MPV) 8.7 fL 7.4-10.4 A NE% (test code = NE) 61.3 % 42.0-75.0 LY% (test code = LY) 30.8 % 13.0-42.0 MO% (test code = MO) 6.6 % 4.0-14.0 EO% (test code = EO) 0.6 % 1.0-3.0 L BA% (test code = BA) 0.1 % 1.0-3.0 L IG% (test code = IG%) 0.6 % 0.0-0.4 H STAT LAB CHEM [id number] 02:55:00 Test Item Value Reference Range Interpretation Comments Sodium (test code = NA) 140 mmol/l 138-146 Potassium (test code = K) 3.8 mmol/l 3.5-4.9 Chloride (test code = CL) 106 mmol/l 98-109 IONIZED CALCIUM (test code = ICA) 1.18 1.12-1.32 A CO2 (test code = CO2) 26 mmol/l 24-29 Glucose (test code = GLU) 84 mg/dl 70-105 BUN (test code = BUN) 13 mg/dl 6-17 Creatinine (test code = CREA) 0.5 mg/dl 0.6-1.3 L XR ABDOMEN 1 VIEW (KUB)2020-02-25 02:45:30PROCEDURE INFORMATION:Exam: XR Abdomen, 1 ViewExam date and time: 02/25/2020 1:51 AMAge: 34 years oldClinical indication: Nausea and vomiting; Prior surgery; Surgery date: 6+months; Surgery type: Gb removed, appendix removed; Patient HX: N/vTECHNIQUE:Imaging protocol: XR of the abdomen.Views: Frontal supine view of the abdomen. 1 View.COMPARISON:CT ABDOMEN/PELVIS W/CONTRAST 10/07/2019 10:23 PMFINDINGS:Ga strointestinal tract: Normal. No bowel dilation.Bones/joints: Unremarkable.IMPRESSION:No acute findings.This Final report was electronically signed by Jorge Luis White MD on 2:45 AM CDT.Dictated By: JORGE LUIS WHITEDate: 02/25/2020 02:45STAT LAB , [id number] 01:12:00 Test Item Value Reference Range Interpretation Comments (Urine) (test code = Negative PREGU) STAT LAB URINALYSIS WITHOUT [id number] 01:11:00 Test Item Value Reference Range Interpretation Comments Color (test code = UCOLR) Yellow Lt. Yellow A Clarity (test code = UCLAR) Clear Glucose (test code = UGLUC) Negative Negative N Bilirubin (test code = UBILI) Negative Negative N Ketones (test code = UKET) Negative Negative N Specific [place] (test code = USPGR) >=1.030 1.005-1.030 A Blood (test code = UBLD) Negative Negative N PH (test code = UPH) 5.5 4.5-8.0 A Protein (test code = UPROT) Negative Negative N Urobilinogen (test code = U UROB) 0.2 >0.2 N Nitrite (test code = UNITR) Negative Negative N Leukocyte Esterase (test code = Negative Negative N ULEUK) XR ABDOMEN 1 VIEW (KUB)2020-02-10 06:46:05Procedure: XR ABDOMEN 1 VIEW (KUB)Order date: 02/10/2020 4:01 AMOrdering Provider: JUAN Galiciainical Indication: Abdominal painComparison: NoneFindings:There is no small or large bowel distention.There is no pneumoperitoneum.There are no suspicious calcifications.There is no skeletal abnormality.Impression:1. Negative single view abdomen.This final report was electronically signed by Dr Wiley Velázquez MD 02/10/20206:39 AMDictated By: WILEY VELÁZQUEZDate: 02/10/2020 06:39US RENAL & BLADDER (KIDNEYS)2020-02-10 05:31:33PROCEDURE INFORMATION:Exam: US Retroperitoneal; Complete; Kidneys and BladderExam date and time: 02/10/2020 4:02 AMAge: 34 years oldClinical indication: Abdominal pain; Left; Patient HX: Lt flank and back pain x1 day; History of kidney stonesTECHNIQUE:Imaging protocol: Real-time ultrasound of the retroperitoneum with imagedocumentation. Complete exam focused on the kidneys and bladder.COMPARISON:CT ABDOMEN/PELVIS W/CONTRAST 10/07/2019 10:23 PMFINDINGS:Right kidney: The right kidney measures 10.5 cm. There is no evidence ofhydronephrosis or nephrolithiasis.Left kidney: There is a 4 mm calcification noted within the left kidney. Thereis no evidence of hydronephrosis. The left kidney measures 10.8 cm.IMPRESSION: 4 mm calculus noted within the left kidney. Otherwise unremarkablestudy.This Final report was electronically signed by Jorge Luis White MD on 5:31 AM CDT.Dictated By: JORGE LUIS WHITEDate: 02/10/2020 05:31URINALYSIS WITH MICROSCOPIC 2020-02-10 05:10:00 Test Item Value Reference Range Interpretation Comments Color (test code = UCOLR) Yellow Lt. Yellow A Clarity (test code = UCLAR) Clear Glucose (test code = UGLUC) >=1000 Negative A Bilirubin (test code = UBILI) Negative Negative N Ketones (test code = UKET) Negative Negative N Specific [place] (test code = 1.015 1.005-1.030 A USPGR) Blood (test code = UBLD) Negative Negative N PH (test code = UPH) 6.0 4.5-8.0 A Protein (test code = UPROT) 30 Negative A Urobilinogen (test code = U UROB) 0.2 >0.2 N Nitrite (test code = UNITR) Negative Negative N Leukocyte Esterase (test code = Negative Negative N ULEUK) WBC (test code = WBCUR) None Seen 0-5 A RBC (test code = RBCUR) None Seen 0-5 A Epithial Cells (test code = U EPI) 0-5 0-10 A Mucous (test code = UMUC) None Seen None Seen N Bacteria (test code = UBACT) None Seen None Seen,Trace N [id number] 04:42:00 Test Item Value Reference Range Interpretation Comments Lipase (test code = LIPA) 91 U/L 73-393 HEPATIC FUNCTION PANEL (LIVER)2020-02-10 04:42:00 Test Item Value Reference Range Interpretation Comments T Protein (test code = TP) 6.9 gm/dl 6.4-8.2 Albumin (test code = ALB) 3.2 gm/dl 3.4-5.0 L AST (SGOT) (test code = AST) 15 U/L 15-37 ALT (SGPT) (test code = ALT) 21 U/L 13-61 Alkaline Phos (test code = ALKP) 93 U/L 45-117 Total Bilirubin (test code = TBIL) 0.2 mg/dl 0.2-1.0 Direct Bilirubin (test code = <0.1 mg/dl 0.0-0.3 N DBIL) Indirect Bilirubin (test code = 0.2 mg/dl 0.0-1.1 IBIL) STAT LAB CHEM [id number] 04:27:00 Test Item Value Reference Range Interpretation Comments Sodium (test code = NA) 138 mmol/l 138-146 Potassium (test code = K) 4.1 mmol/l 3.5-4.9 Chloride (test code = CL) 103 mmol/l 98-109 IONIZED CALCIUM (test code = ICA) 1.11 1.12-1.32 A CO2 (test code = CO2) 24 mmol/l 24-29 Glucose (test code = GLU) 100 mg/dl 70-105 BUN (test code = BUN) 14 mg/dl 6-17 Creatinine (test code = CREA) 0.6 mg/dl 0.6-1.3 STAT LAB , [id number] 04:24:00 Test Item Value Reference Range Interpretation Comments (Urine) (test code = Negative PREGU) STAT LAB CBC WITH AUTO [id number] 04:22:00 Test Item Value Reference Range Interpretation Comments WBC (test code = WBC) 7.45 10\\S\\3/ul 4.80-10.80 RBC (test code = RBC) 4.14 10\\S\\6/ul 4.20-5.40 L Hemoglobin (test code = HGB) 11.9 gm/dl 12.0-14.0 L Hematocrit (test code = HCT) 35.1 % 37.0-47.0 L MCV (test code = MCV) 84.8 fL 81.0-99.0 MCH (test code = MCH) 28.7 pg 27.0-31.0 MCHC (test code = MCHC) 33.9 gm/dl 33.0-37.0 Platelet (test code = PLT) 245 10\\S\\3/ul 130-400 RDW (test code = RDWVC) 13.0 % 11.5-14.5 MPV (test code = MPV) 8.8 fL 7.4-10.4 A NE% (test code = NE) 58.6 % 42.0-75.0 LY% (test code = LY) 34.4 % 13.0-42.0 MO% (test code = MO) 5.4 % 4.0-14.0 EO% (test code = EO) 0.8 % 1.0-3.0 L BA% (test code = BA) 0.3 % 1.0-3.0 L IG% (test code = IG%) 0.5 % 0.0-0.[address] L SPINE W/O [id number] 12:46:24Procedure: CT L SPINE W/O CONTRASTOrder date: 01/25/2020 11:46 AMOrdering Provider: DONALD Healyinical Indication: [id number]: Low back painComparison: NoneTechnique: Using a multislice scanner, sequential axial imaging was obtained ofthe lumbar spine. 2D sagittal and coronal reconstructed images were obtained.This exam was performed according to the our departmental dose-optimizationprogram which includes automated exposure control, adjustment of the mA and/orkV according to patient size and/oruse of iterative reconstruction techniques.Findings:There is no acute fracture.Sagittal and coronal alignment is normal.Vertebral body heights and intervertebral disc spaces are normal.There is no osseous spinal canal nor neural foraminal narrowing.There is no lytic or sclerotic lesion.There is no paraspinal hematoma.The prevertebral soft tissues are normal.IMPRESSION1. Negative CT scan of the lumbarspine.This final report was electronically signed by Dr Wiley Velázquez MD 01/25/202012:39 PMDictatedBy: WILEY VELÁZQUEZDate: 01/25/2020 12:39HEPATIC FUNCTION PANEL (LIVER)2019-12-09 05:49:00 Test Item Value Reference Range Interpretation Comments T Protein (test code = TP) 6.8 gm/dl 6.4-8.2 Albumin (test code = ALB) 2.8 gm/dl 3.4-5.0 L AST (SGOT) (test code = AST) 35 U/L 15-37 ALT (SGPT) (test code = ALT) 21 U/L 13-61 Alkaline Phos (test code = ALKP) 83 U/L 45-117 Total Bilirubin (test code = TBIL) 0.3 mg/dl 0.2-1.0 Direct Bilirubin (test code = <0.1 mg/dl 0.0-0.2 N DBIL) Indirect Bilirubin (test code = 0.3 mg/dl 0.0-1.1 IBIL) ER [id number] 05:49:00 Test Item Value Reference Range Interpretation Comments Lipase (test code = LIPA) 105 U/L 73-393 ER 7STAT LAB CHEM [id number] 05:06:00 Test Item Value Reference Range Interpretation Comments Sodium (test code = NA) 140 mmol/l 138-146 Potassium (test code = K) 3.9 mmol/l 3.5-4.9 Chloride (test code = CL) 107 mmol/l 98-109 IONIZED CALCIUM (test code = ICA) 1.00 1.12-1.32 A CO2 (test code = CO2) 23 mmol/l 24-29 L Glucose (test code = GLU) 96 mg/dl 70-105 BUN (test code = BUN) 13 mg/dl 6-17 Creatinine (test code = CREA) 0.5 mg/dl 0.6-1.3 L ER 7STAT LAB CBC WITH AUTO [id number] 05:04:00 Test Item Value Reference Range Interpretation Comments WBC (test code = WBC) 6.98 10\\S\\3/ul 4.80-10.80 RBC (test code = RBC) 4.01 10\\S\\6/ul 4.20-5.40 L Hemoglobin (test code = HGB) 11.6 gm/dl 12.0-14.0 L Hematocrit (test code = HCT) 34.0 % 37.0-47.0 L MCV (test code = MCV) 84.8 fL 81.0-99.0 MCH (test code = MCH) 28.9 pg 27.0-31.0 MCHC (test code = MCHC) 34.1 gm/dl 33.0-37.0 Platelet (test code = PLT) 206 10\\S\\3/ul 130-400 RDW (test code = RDWVC) 12.4 % 11.5-14.5 MPV (test code = MPV) 9.3 fL 7.4-10.4 A NE% (test code = NE) 56.7 % 42.0-75.0 LY% (test code = LY) 34.0 % 13.0-42.0 MO% (test code = MO) 7.6 % 4.0-14.0 EO% (test code = EO) 1.0 % 1.0-3.0 BA% (test code = BA) 0.3 % 1.0-3.0 L IG% (test code = IG%) 0.4 % 0.0-0.4 ER [id number] 02:23:00 Test Item Value Reference Range Interpretation Comments Sodium (test code = 140 mmol/l 137-145 NA) Potassium (test 3.6 mmol/l 3.5-5.1 code = K) Chloride (test code 112 mmol/l 98-107 H = CL) Calcium (test code 7.7 mg/dl 8.5-10.1 L = CALC) CO2 (test code = 21 mmol/l 21-32 CO2) Glucose (test code 114 mg/dl 74-106 H = GLU) BUN (test code = 14.0 mg/dl 7.0-18.0 BUN) Creatinine (test 0.6 mg/dl 0.5-1.3 code = CREA) T Protein (test 6.9 gm/dl 6.4-8.2 code = TP) Albumin (test code 3.0 gm/dl 3.4-5.0 L = ALB) A/G Ratio (test 0.8 % 1.1-2.2 L code = AGRAT) AST (SGOT) (test 13 U/L 15-37 L code = AST) ALT (SGPT) (test 22 U/L 13-61 code = ALT) Alkaline Phos (test 109 U/L 45-117 code = ALKP) Total Bilirubin 0.1 mg/dl 0.2-1.0 L (test code = TBIL) Globulin (test code 3.9 gm/dl 2.3-3.5 H = GLOBU) Calcium, Corrected 8.5 mg/dl 8.4-10.2 Various f ormulas exist (test code = for corrected s jeison CALCCORR) calcium results , each yielding differ ent values. This corrected resul t was based on the fo rmula: Corrected Calci um = SerumCalcium + [0.8 * ( 4 - SerumAlbu min)] EGFR if >60 Turkish (test code mL/min/1.73m\\ = EGFRAA) S\\2 EGFR if Non- >60 Estimate d Glomerular [place] (test code mL/min/1.73m\\ Filtrat ion Rate (eGFR) = EGFRNA) S\\2 Reference Inter vals Decision Points for 18 years and older and average body ma ss: >= 60 Does not exc lude kidney disease. 30 - 59 Suggests modera te chronic kidney disease and indicat es the need for furthe r investigation including asses sment of proteinuria and cardiovascular factors. < 30 Usually in dicates a need for refe rral for assessment and management of c hronic kidney failure. URINALYSIS WITH [id number] 02:11:00 Test Item Value Reference Range Interpretation Comments Color (test code = UCOLR) Yellow Lt. Yellow A Clarity (test code = UCLAR) Clear Glucose (test code = UGLUC) Negative Negative N Bilirubin (test code = UBILI) Negative Negative N Ketones (test code = UKET) Trace Negative A Specific [place] (test code = USPGR) >=1.030 1.005-1.030 A Blood (test code = UBLD) Negative Negative N PH (test code = UPH) 5.5 4.5-8.0 A Protein (test code = UPROT) Negative Negative N Urobilinogen (test code = U UROB) 0.2 >0.2 N Nitrite (test code = UNITR) Negative Negative N Leukocyte Esterase (test code = Negative Negative N ULEUK) WBC (test code = WBCUR) 0-5 0-5 N RBC (test code = RBCUR) 0-5 0-5 N Epithial Cells (test code = U EPI) 50-60 0-10 A Bacteria (test code = UBACT) 2+ None Seen,Trace A STAT LAB CBC WITH AUTO [id number] 02:03:00 Test Item Value Reference Range Interpretation Comments WBC (test code = WBC) 7.12 10\\S\\3/ul 4.80-10.80 RBC (test code = RBC) 4.17 10\\S\\6/ul 4.20-5.40 L Hemoglobin (test code = HGB) 11.9 gm/dl 12.0-14.0 L Hematocrit (test code = HCT) 35.8 % 37.0-47.0 L MCV (test code = MCV) 85.9 fL 81.0-99.0 MCH (test code = MCH) 28.5 pg 27.0-31.0 MCHC (test code = MCHC) 33.2 gm/dl 33.0-37.0 Platelet (test code = PLT) 239 10\\S\\3/ul 130-400 RDW (test code = RDWVC) 12.4 % 11.5-14.5 MPV (test code = MPV) 8.7 fL 7.4-10.4 A NE% (test code = NE) 58.6 % 42.0-75.0 LY% (test code = LY) 31.9 % 13.0-42.0 MO% (test code = MO) 7.7 % 4.0-14.0 EO% (test code = EO) 1.1 % 1.0-3.0 BA% (test code = BA) 0.3 % 1.0-3.0 L IG% (test code = IG%) 0.4 % 0.0-0.4 CT ABDOMEN/PELVIS [id number] 22:43:00NPO 4 hours. Do not withhold meds RLQ r/o appendicitis . Has hysterectomyPROCEDURE INFORMATION:Exam: CT Abdomen And Pelvis With ContrastExam date and time: 10/07/2019 9:09 PMAge: 34 years oldClinical indication: Abdominal pain; Acute; Prior surgery; Surgery date: 6+months; Surgery type: Hyst, gb removed, appendectomy, multiple surgeries forendometrosis; Patient HX: Ordered to R/O appendicitis, PT has had anappendectomy, PT has had two recent CT abdsTECHNIQUE:Imaging protocol: Computed tomography of the abdomen and pelvis withintravenous contrast.Radiation optimization: AllCT scans at this facility use at least one of thesedose optimization techniques: automated exposure control; mA and/or kVadjustment per patient size (includes targeted exams where dose is matched toclinical indication); or iterative reconstruction.Contrast material: ISO 300; Contrast volume: 80 ml; Contrast route: IV;COMPARISON:CT ABDOMEN/PELVIS W/CONTRAST 08/17/2019 4:02 AMFINDINGS:Liver: Normal. No mass.Gallbladder and bile ducts: Prior cholecystectomy.Pancreas: Normal. No ductal dilation.Spleen: Normal. No splenomegaly.Adrenals: Normal. No mass.Kidneys and ureters: Normal. No hydronephrosis.Stomach and bowel: Prior sleeve gastrectomy. No dilated bowel.Appendix: Appendix is nonvisualized, compatible with the reported history ofprior appendectomy.Intraperitoneal space: Unremarkable. No free air. No significant fluidcollection.Vasculature: Unremarkable. No abdominal aortic aneurysm.Lymph nodes: Unremarkable. No enlarged lymph nodes.Bladder: Unremarkable as visualized.Reproductive: Prior hysterectomy.Bones/joints: Unremarkable. No acute fracture.Soft tissues: Small fat-containing umbilical hernia.IMPRESSION:No acute findings.This Final report was electronically signed by Josué Mcghee MD on 201910:42 PM CDT.Dictated By: JOSUÉ MCGHEEDate: 10/07/2019 22:[id number] 22:05:00 Test Item Value Reference Range Interpretation Comments Sodium (test code = 138 mmol/l 137-145 NA) Potassium (test 3.6 mmol/l 3.5-5.1 code = K) Chloride (test code 107 mmol/l 98-107 = CL) Calcium (test code 8.3 mg/dl 8.5-10.1 L = CALC) CO2 (test code = 23 mmol/l 21-32 CO2) Glucose (test code 104 mg/dl 74-106 = GLU) BUN (test code = 13.0 mg/dl 7.0-18.0 BUN) Creatinine (test 0.7 mg/dl 0.5-1.3 code = CREA) EGFR if >60 [place] (test code mL/min/1.73m\\ = EGFRAA) S\\2 EGFR if Non- >60 Estimate d Glomerular [place] (test code mL/min/1.73m\\ Filtrat ion Rate (eGFR) = EGFRNA) S\\2 Reference Inter vals Decision Points for 18 years and older and average body ma ss: >= 60 Does not exc lude kidney disease. 30 - 59 Suggests modera te chronic kidney disease and indicat es the need for furthe r investigation including asses sment of proteinuria and cardiovascular factors. < 30 Usually in dicates a need for refe rral for assessment and management of c hronic kidney failure. AMYLASE, [id number] 22:05:00 Test Item Value Reference Range Interpretation Comments Amylase (test code = AMYL) 43 U/L 25-115 [id number] 22:05:00 Test Item Value Reference Range Interpretation Comments Lipase (test code = LIPA) 95 U/L 73-393 URINALYSIS WITH [id number] 21:49:00 Test Item Value Reference Range Interpretation Comments Color (test code = UCOLR) Yellow Lt. Yellow A Clarity (test code = UCLAR) Clear Glucose (test code = UGLUC) Negative Negative N Bilirubin (test code = UBILI) Negative Negative N Ketones (test code = UKET) 15 Negative A Specific [place] (test code = USPGR) >=1.030 1.005-1.030 A Blood (test code = UBLD) Negative Negative N PH (test code = UPH) 5.5 4.5-8.0 A Protein (test code = UPROT) Negative Negative N Urobilinogen (test code = U UROB) 0.2 >0.2 N Nitrite (test code = UNITR) Negative Negative N Leukocyte Esterase (test code = Negative Negative N ULEUK) WBC (test code = WBCUR) 0-5 0-5 N RBC (test code = RBCUR) 0-5 0-5 N Epithial Cells (test code = U EPI) TNTC 0-10 A Bacteria (test code = UBACT) 3+ None Seen,Trace A STAT LAB CBC WITH AUTO [id number] 21:45:00 Test Item Value Reference Range Interpretation Comments WBC (test code = WBC) 8.11 10\\S\\3/ul 4.80-10.80 RBC (test code = RBC) 4.27 10\\S\\6/ul 4.20-5.40 Hemoglobin (test code = HGB) 12.3 gm/dl 12.0-14.0 Hematocrit (test code = HCT) 36.1 % 37.0-47.0 L MCV (test code = MCV) 84.5 fL 81.0-99.0 MCH (test code = MCH) 28.8 pg 27.0-31.0 MCHC (test code = MCHC) 34.1 gm/dl 33.0-37.0 Platelet (test code = PLT) 257 10\\S\\3/ul 130-400 RDW (test code = RDWVC) 12.5 % 11.5-14.5 MPV (test code = MPV) 8.7 fL 7.4-10.4 A NE% (test code = NE) 67.1 % 42.0-75.0 LY% (test code = LY) 26.0 % 13.0-42.0 MO% (test code = MO) 5.7 % 4.0-14.0 EO% (test code = EO) 0.6 % 1.0-3.0 L BA% (test code = BA) 0.2 % 1.0-3.0 L IG% (test code = IG%) 0.4 % 0.0-0.4 STAT LAB , [id number] 21:36:00 Test Item Value Reference Range Interpretation Comments (Urine) (test code = Negative PREGU) CT ABDOMEN/PELVIS W/O [id number] 03:56:36PROCEDURE INFORMATION:Exam: CT Abdomen And Pelvis Without ContrastExam date and time: 09/20/2019 3:10AMAge: 34 years oldClinical indication: Nausea; Abdominal pain; Patient HX: Right flank pain,hysterectomy, cholecystectomy, appendectomyTECHNIQUE:Imaging protocol: Computed tomography of the abdomen and pelvis withoutcontrast.Radiation optimization: All CT scans at this facility use at least one of thesedose optimization techniques: automated exposure control; mA and/or kVadjustment per patient size (includes targeted exams where dose is matched toclinical indication); or iterative reconstruction.COMPARISON:CT ABDOMEN/PELVIS W/CONTRAST 08/17/2019 4:02 AMFINDINGS:Liver: Normal. No mass.Gallbladder and bile ducts: Status post cholecystectomy.Pancreas: Normal. No ductal dilation.Spleen: Normal. No splenomegaly.Adrenals: Normal. No mass.Kidneys and ureters: Normal. No hydronephrosis.Stomach and bowel:Status post gastric sleeve creation. Mild stool throughoutthe colon.Appendix: There are no changes of appendicitis. A normal appendix is not seen.Intraperitoneal space: Unremarkable. No free air. No sig nificant fluidcollection.Vasculature: Unremarkable. No abdominal aortic aneurysm.Lymph nodes: Unremarkable. No enlarged lymph nodes.Bladder: Unremarkable as visualized.Reproductive: Status post hysterectomy.Bones/joints: Unremarkable. No acute fracture.Soft tissues: Small fat filled umbilical hernia.IMPRESSION:1. There has been prior cholecystectomy, gastric sleeve and hysterectomy.2. Mild stool throughout the colon.3. Otherwise negative CT abdomen/pelvis with little change from 08/17/2019.This Final report was electronically signed by Amy Ordoñez MD on 3:56 AM CDT.Dictated By: AMY ORDOÑEZDate: 09/20/2019 03:[id number] 02:07:00 Test Item Value Reference Range Interpretation Comments Sodium (test code = 140 mmol/l 137-145 NA) Potassium (test 3.4 mmol/l 3.5-5.1 L code = K) Chloride (test code 110 mmol/l 98-107 H = CL) Calcium (test code 8.2 mg/dl 8.5-10.1 L = CALC) CO2 (test code = 24 mmol/l 21-32 CO2) Glucose (test code 124 mg/dl 74-106 H = GLU) BUN (test code = 11.0 mg/dl 7.0-18.0 BUN) Creatinine (test 0.6 mg/dl 0.5-1.3 code = CREA) T Protein (test 6.5 gm/dl 6.4-8.2 code = TP) Albumin (test code 3.0 gm/dl 3.4-5.0 L = ALB) A/G Ratio (test 0.9 % 1.1-2.2 L code = AGRAT) AST (SGOT) (test 11 U/L 15-37 L code = AST) ALT (SGPT) (test 21 U/L 13-61 code = ALT) Alkaline Phos (test 92 U/L 45-117 code = ALKP) Total Bilirubin 0.2 mg/dl 0.2-1.0 (test code = TBIL) Globulin (test code 3.5 gm/dl 2.3-3.5 = GLOBU) Calcium, Corrected 9.0 mg/dl 8.4-10.2 Various f ormulas exist (test code = for corrected s jeison CALCCORR) calcium results , each yielding differ ent values. This corrected resul t was based on the fo rmula: Corrected Calci um = SerumCalcium + [0.8 * ( 4 - SerumAlbu min)] EGFR if >60 Turkish (test code mL/min/1.73m\\ = EGFRAA) S\\2 EGFR if Non- >60 Estimate d Glomerular Turkish (test code mL/min/1.73m\\ Filtrat ion Rate (eGFR) = EGFRNA) S\\2 Reference Inter vals Decision Points for 18 years and older and average body ma ss: >= 60 Does not exc lude kidney disease. 30 - 59 Suggests modera te chronic kidney disease and indicat es the need for furthe r investigation including asses sment of proteinuria and cardiovascular factors. < 30 Usually in dicates a need for refe rral for assessment and management of c hronic kidney failure. XR ABDOMEN 2 VIEWS FLAT / [id number] 02:01:15PROCEDURE INFORMATION:Exam: XR Abdomen, 2 ViewsExam date and time: 09/20/2019 1:13 AMAge: 34 years old Clinical indication: Abdominal pain; Flank; Right; Patient HX: HX ofappendectomy, cholecystectomy, hysterectomyTECHNIQUE:Imaging protocol: XR of the abdomen.Views: 2 Views.COMPARISON:No relevant prior studies available.FINDINGS:Gastrointestinal tract: Moderate stool throughout the colon. Mild gas in the GItract, primarily colonic to the level of the rectum without abnormaldilatation. No abnormal air-fluid levels.Intraperitoneal space: No free air.Organs: Status post cholecystectomy.Bones/joints: Unremarkable for age.IMPRESSION:1. Status post cholecystectomy.2. Moderate stool throughout the colon.3.Otherwise negative abdomen with mild colon gas.This Final report was electronically signed by Amy Ordoñez MD on 2:01 AM CDT.Dictated By: AMY ORDOÑEZDate: 09/20/2019 02:01URINALYSIS WITH [id number] 01:56:00 Test Item Value Reference Range Interpretation Comments Color (test code = UCOLR) Yellow Lt. Yellow A Clarity (test code = UCLAR) Clear Glucose (test code = UGLUC) >=1000 Negative A Bilirubin (test code = UBILI) Negative Negative N Ketones (test code = UKET) Trace Negative A Specific [place] (test code = USPGR) >=1.030 1.005-1.030 A Blood (test code = UBLD) Negative Negative N PH (test code = UPH) 5.5 4.5-8.0 A Protein (test code = UPROT) Negative Negative N Urobilinogen (test code = U UROB) 0.2 >0.2 N Nitrite (test code = UNITR) Negative Negative N Leukocyte Esterase (test code = Negative Negative N ULEUK) WBC (test code = WBCUR) 0-5 0-5 N RBC (test code = RBCUR) 0-5 0-5 N Epithial Cells (test code = U EPI) 40-50 0-10 A Mucous (test code = UMUC) Moderate None Seen A Bacteria (test code = UBACT) 2+ None Seen,Trace A STAT LAB CBC WITH AUTO [id number] 01:38:00 Test Item Value Reference Range Interpretation Comments WBC (test code = WBC) 7.69 10\\S\\3/ul 4.80-10.80 RBC (test code = RBC) 4.06 10\\S\\6/ul 4.20-5.40 L Hemoglobin (test code = HGB) 11.7 gm/dl 12.0-14.0 L Hematocrit (test code = HCT) 34.7 % 37.0-47.0 L MCV (test code = MCV) 85.5 fL 81.0-99.0 MCH (test code = MCH) 28.8 pg 27.0-31.0 MCHC (test code = MCHC) 33.7 gm/dl 33.0-37.0 Platelet (test code = PLT) 252 10\\S\\3/ul 130-400 RDW (test code = RDWVC) 12.4 % 11.5-14.5 MPV (test code = MPV) 8.7 fL 7.4-10.4 A NE% (test code = NE) 59.2 % 42.0-75.0 LY% (test code = LY) 32.4 % 13.0-42.0 MO% (test code = MO) 6.6 % 4.0-14.0 EO% (test code = EO) 1.0 % 1.0-3.0 BA% (test code = BA) 0.3 % 1.0-3.0 L IG% (test code = IG%) 0.5 % 0.0-0.[address] ABDOMEN/PELVIS W/[id number] 04:23:30PROCEDURE INFORMATION:Exam: CT Abdomen And Pelvis With ContrastExam date and time: 08/17/2019 3:16 AMAge: 34 years oldClinical indication: Abdominal pain; Acute; Prior surgery; Surgery date: 6+months; Surgery type: Hyst, appendectomy, gb removed; Patient HX: Rlq abd painTECHNIQUE:Imaging protocol: Computed tomography of the abdomen and pelvis withintravenous contrast.Radiation optimization: All CT scans at this facility use at least one of thesedose optimization techniques: automated exposure control; mA and/or kVadjustment per patient size (includes targeted exams where dose is matched toclinical indication); or iterative reconstruction.Contrast material: ISO 300; Contrast volume: 90 ml; Contrast r oute: IV;COMPARISON:CT ABDOMEN/PELVIS W/O CONTRAST 09/30/2018 11:04 PMFINDINGS:Liver: Normal. No mass.Gallbladder and bile ducts: Cholecystectomy.Pancreas: Normal. No ductal dilation.Spleen: Normal. No sp lenomegaly.Adrenals: Normal. No mass.Kidneys and ureters: Normal. No hydronephrosis.Stomach and bowel: Changes of gastric sleeve.Appendix: No evidence of appendicitis.Intraperitoneal space: Unremarkable. No free air. No significant fluidcollection.Vasculature: Unremarkable. No abdominal aortic aneurysm.Lymph nodes: Unremarkable. No enlarged lymph nodes.Bladder: Unremarkable as visualized.Reproductive: Unremarkable as visualized.Bones/joints: Sclerotic focus left ilium image 79.Soft tissues: Unremarkable.IMPRESSION:No acute findings.This Final report was electronically signed [place] 201[address]:23 AM CDT.Dictated By: SETH MEDINADate: 08/17/2019 04:[id number] 03:34:00 Test Item Value Reference Range Interpretation Comments Lipase (test code = LIPA) 67 U/L 73-393 L [id number] 03:34:00 Test Item Value Reference Range Interpretation Comments Sodium (test code = 140 mmol/l 137-145 NA) Potassium (test 3.9 mmol/l 3.5-5.1 code = K) Chloride (test code 109 mmol/l 98-107 H = CL) Calcium (test code 8.1 mg/dl 8.5-10.1 L = CALC) CO2 (test code = 23 mmol/l 21-32 CO2) Glucose (test code 114 mg/dl 74-106 H = GLU) BUN (test code = 10.0 mg/dl 7.0-18.0 BUN) Creatinine (test 0.7 mg/dl 0.5-1.3 code = CREA) T Protein (test 6.7 gm/dl 6.4-8.2 code = TP) Albumin (test code 2.9 gm/dl 3.4-5.0 L = ALB) A/G Ratio (test 0.8 % 1.1-2.2 L code = AGRAT) AST (SGOT) (test 21 U/L 15-37 code = AST) ALT (SGPT) (test 19 U/L 13-61 code = ALT) Alkaline Phos (test 90 U/L 45-117 code = ALKP) Total Bilirubin 0.5 mg/dl 0.2-1.0 (test code = TBIL) Globulin (test code 3.8 gm/dl 2.3-3.5 H = GLOBU) Calcium, Corrected 9.0 mg/dl 8.4-10.2 Various f ormulas exist (test code = for corrected s jeison CALCCORR) calcium results , each yielding differ ent values. This corrected resul t was based on the fo rmula: Corrected Calci um = SerumCalcium + [0.8 * ( 4 - SerumAlbu min)] EGFR if >60 Turkish (test code mL/min/1.73m\\ = EGFRAA) S\\2 EGFR if Non- >60 Estimate d Glomerular Turkish (test code mL/min/1.73m\\ Filtrat ion Rate (eGFR) = EGFRNA) S\\2 Reference Inter vals Decision Points for 18 years and older and average body ma ss: >= 60 Does not exc lude kidney disease. 30 - 59 Suggests modera te chronic kidney disease and indicat es the need for furthe r investigation including asses sment of proteinuria and cardiovascular factors. < 30 Usually in dicates a need for refe rral for assessment and management of c hronic kidney failure. STAT LAB CBC WITH AUTO [id number] 03:19:00 Test Item Value Reference Range Interpretation Comments WBC (test code = WBC) 7.35 10\\S\\3/ul 4.80-10.80 RBC (test code = RBC) 3.97 10\\S\\6/ul 4.20-5.40 L Hemoglobin (test code = HGB) 11.6 gm/dl 12.0-14.0 L Hematocrit (test code = HCT) 34.1 % 37.0-47.0 L MCV (test code = MCV) 85.9 fL 81.0-99.0 MCH (test code = MCH) 29.2 pg 27.0-31.0 MCHC (test code = MCHC) 34.0 gm/dl 33.0-37.0 Platelet (test code = PLT) 232 10\\S\\3/ul 130-400 RDW (test code = RDWVC) 12.5 % 11.5-14.5 MPV (test code = MPV) 8.9 fL 7.4-10.4 A NE% (test code = NE) 54.1 % 42.0-75.0 LY% (test code = LY) 34.0 % 13.0-42.0 MO% (test code = MO) 5.9 % 4.0-14.0 EO% (test code = EO) 4.9 % 1.0-3.0 H BA% (test code = BA) 0.4 % 1.0-3.0 L IG% (test code = IG%) 0.7 % 0.0-0.4 H URINALYSIS WITH [id number] 03:10:00 Test Item Value Reference Range Interpretation Comments Color (test code = UCOLR) YELLOW Clarity (test code = UCLAR) CLEAR Glucose (test code = UGLUC) NEGATIVE NEGATIVE N Bilirubin (test code = UBILI) NEGATIVE NEGATIVE N Ketones (test code = UKET) NEGATIVE NEGATIVE N Specific [place] (test code = 1.025 1.005-1.030 A USPGR) Blood (test code = UBLD) NEGATIVE NEGATIVE N PH (test code = UPH) 6.0 4.5-8.0 A Protein (test code = UPROT) NEGATIVE NEGATIVE N Urobilinogen (test code = U UROB) 0.2 >0.2 N Nitrite (test code = UNITR) NEGATIVE NEGATIVE N Leukocyte Esterase (test code = NEGATIVE NEGATIVE N ULEUK) WBC (test code = WBCUR) 0-5 0-5 N RBC (test code = RBCUR) None Seen 0-5 A Epithial Cells (test code = U EPI) 30-40 0-10 A Mucous (test code = UMUC) Trace None Seen A Bacteria (test code = UBACT) 1+ None Seen,Trace A STAT LAB , [id number] 03:03:00 Test Item Value Reference Range Interpretation Comments (Urine) (test code = Negative PREGU) ONLY AVAILABLE [id number] 20:37:00 Test Item Value Reference Range Interpretation Comments Sodium (test code = NA) 141 mmol/l 128-145 Potassium (test code = K) 3.7 mmol/l 3.6-5.1 CO2 (test code = CO2) 27 mmol/l 18-33 Chloride (test code = CL) 102 mmol/l 98-108 Glucose (test code = GLU) 90 mg/dl 73-118 Calcium (test code = CALC) 8.9 mg/dl 8.0-10.3 BUN (test code = BUN) 9 mg/dl 7-22 Creatinine (test code = CREA) 0.6 mg/dl 0.6-1.2 ED2 [id number] 20:28:00 Test Item Value Reference Range Interpretation Comments WBC (test code = WBC) 8.6 10\\S\\9/L 3.5-10.0 LY% (test code = LY) 30.5 % 15.0-50.0 MIDS% (test code = MIDS) 6.3 % 2.0-15.0 Granulocytes % (test code = 63.2 % 35.0-80.0 GRA%) Lymphocytes (test code = 2.6 10\\S\\9/L 0.5-5.0 LYMPH) MID (test code = MID) 0.6 10\\S\\9/L 0.1-1.5 Granulocytes (test code = 5.4 10\\S\\9/L 1.2-8.0 GRAN) RBC (test code = RBC) 4.44 10\\S\\12/L 3.50-5.50 Hemoglobin (test code = HGB) 12.5 gm/dl 11.5-16.5 Hematocrit (test code = HCT) 38.2 % 35.0-55.0 MCV (test code = MCV) 86.2 fL 75.0-100.0 MCH (test code = MCH) 28.2 pg 25.0-35.0 MCHC (test code = MCHC) 32.7 gm/dl 31.0-38.0 RDW % (test code = RDW%) 12.6 % 11.0-16.0 Platelet (test code = PLT) 254 10\\S\\9/L 100-400 MPV (test code = MPV) 7.1 fL 8.0-11.0 A CULTURE, [id number] 08:44:32ivv8Uhwjsivi: Urine SpecimensCollected: 07/12/2019 15:00 Status: Final Last Updated: 2019 08:44 (1) err7 Culture Result (Final) (Final) Moderate Mixed Body Gabriela Isolated No Pathogens Isolated No Further Workup PerformedFL LIMITED [id number] 17:53:41Procedures: FL LIMITED IVPExam Date: 07/12/2019 3:21 PMOrdering Physician: REHAN Farrellinical Indication: [id number]: Flank painComparison: CT abdomen/pelvis, 05/17/19Findings: Frontal radiographs of the abdomen following administration andexcretion of contrast into the urinary collectingsystem.The urinary collecting system opacifies normally. No evident hydronephrosis.Ureters are of normal course and caliber. No evident obstruction or fillingdefect. No significant abnormality of the urinary bladder. Moderate stool burdenis demonstrated within the right colon. No acute abnormality of the osseousstructures or remaining soft tissues.Impression: No significant abnormality of the urinarycollecting system on thisexam.This final report was electronically signed by Dr Elmer Juárez MD07/12/2019 5:47 PMDictated By: ELMER PHAMDate: 07/12/2019 17:[id number] 15:56:00 Test Item Value Reference Range Interpretation Comments Lipase (test code = LIPA) 97 U/L 73-393 [id number] FUNCTION PANEL (LIVER)2019-07-12 15:56:00 Test Item Value Reference Range Interpretation Comments T Protein (test code = TP) 7.6 gm/dl 6.4-8.2 Albumin (test code = ALB) 3.3 gm/dl 3.4-5.0 L AST (SGOT) (test code = AST) 15 U/L 15-37 ALT (SGPT) (test code = ALT) 23 U/L 13-61 Alkaline Phos (test code = ALKP) 100 U/L 45-117 Total Bilirubin (test code = TBIL) 0.2 mg/dl 0.2-1.0 Direct Bilirubin (test code = <0.1 mg/dl 0.0-0.3 N DBIL) Indirect Bilirubin (test code = 0.2 mg/dl 0.0-1.1 IBIL) [id number] WITH [id number] 15:51:00 Test Item Value Reference Range Interpretation Comments Color (test code = UCOLR) YELLOW Clarity (test code = UCLAR) CLEAR Glucose (test code = UGLUC) NEGATIVE NEGATIVE N Bilirubin (test code = UBILI) NEGATIVE NEGATIVE N Ketones (test code = UKET) NEGATIVE NEGATIVE N Specific [place] (test code = 1.020 1.005-1.030 A USPGR) Blood (test code = UBLD) NEGATIVE NEGATIVE N PH (test code = UPH) 6.0 4.5-8.0 A Protein (test code = UPROT) NEGATIVE NEGATIVE N Urobilinogen (test code = U UROB) 0.2 >0.2 N Nitrite (test code = UNITR) NEGATIVE NEGATIVE N Leukocyte Esterase (test code = NEGATIVE NEGATIVE N ULEUK) WBC (test code = WBCUR) None Seen 0-5 A RBC (test code = RBCUR) None Seen 0-5 A Epithial Cells (test code = U EPI) 10-20 0-10 A Mucous (test code = UMUC) Trace None Seen A Bacteria (test code = UBACT) 4+ None Seen,Trace A [id number] LAB CHEM [id number] 15:09:00 Test Item Value Reference Range Interpretation Comments Sodium (test code = NA) 138 mmol/l 138-146 Potassium (test code = K) 4.3 mmol/l 3.5-4.9 Chloride (test code = CL) 105 mmol/l 98-109 IONIZED CALCIUM (test code = ICA) 1.06 1.12-1.32 A CO2 (test code = CO2) 24 mmol/l 24-29 Glucose (test code = GLU) 75 mg/dl 70-105 BUN (test code = BUN) 11 mg/dl 6-17 Creatinine (test code = CREA) 0.6 mg/dl 0.6-1.3 [id number] LAB CBC WITH AUTO [id number] 15:08:00 Test Item Value Reference Range Interpretation Comments WBC (test code = WBC) 8.50 10\\S\\3/ul 4.80-10.80 RBC (test code = RBC) 4.75 10\\S\\6/ul 4.20-5.40 Hemoglobin (test code = HGB) 13.7 gm/dl 12.0-14.0 Hematocrit (test code = HCT) 40.5 % 37.0-47.0 MCV (test code = MCV) 85.3 fL 81.0-99.0 MCH (test code = MCH) 28.8 pg 27.0-31.0 MCHC (test code = MCHC) 33.8 gm/dl 33.0-37.0 Platelet (test code = PLT) 306 10\\S\\3/ul 130-400 RDW (test code = RDWVC) 11.7 % 11.5-14.5 MPV (test code = MPV) 8.3 fL 7.4-10.4 A NE% (test code = NE) 72.6 % 42.0-75.0 LY% (test code = LY) 20.4 % 13.0-42.0 MO% (test code = MO) 5.5 % 4.0-14.0 EO% (test code = EO) 0.9 % 1.0-3.0 L BA% (test code = BA) 0.2 % 1.0-3.0 L IG% (test code = IG%) 0.4 % 0.0-0.4 err7CT ABDOMEN/PELVIS W/[id number] 16:33:46NPO 4 hours. Do not withhold medsProcedures: CT ABDOMEN/PELVIS W/CONTRASTExam Date: 05/17/2019 1:31 PMOrdering Physician: MERLE Jiménezinical Indication: [id number]: Abdominal painComparison: CT abdomen/pelvis, 04/09/19TECHNIQUE: Spiral multislice scanning was obtained from the lung bases throughthe bony pelvis with intravenouscontrast only. 2-D reconstructions wereobtained according to our usual protocol.This exam was performed according to the our departmental dose-optimizationprogram which includes automated exposure control, adjustment of the mA and/orkV according to patient size and/or use of iterative reconstruction t echniques.Findings:THORAX:Lung bases: No significant abnormality of the lung bases.Heart: No significant abnormality of the visualized cardiac or mediastinalstructures.UPPER ABDOMEN:Liver: Normal.Gallbladder: Absent. Surgical clips within gallbladder fossa.Pancreas: Normal.Spleen: Normal.Adrenals: Normal.URINARY:Kidneys: Normal symmetric cortical enhancement. No hydronephrosis ornephrolithiasis.Ureters: The ureters are of normal course and caliber.Urinary bladder: No significant abnormality of the urinary bladder.REPRODUCTIVE:Organs: Postsurgical changes status post hysterectomy. No significant freefluid in the pelvis.Free fluid: None.Incidental pelvic phleboliths are noted.GASTROINTESTINAL:Large bowel: Moderate to large stool burden within the colon may representconstipation.Append ix: The appendix is not clearly demonstrated on this exam.Small bowel: Normal.Stomach: Postsurgical change status post gastric reduction.Mesentery: Normal.RETROPERITONEUM:Aorta: Normal.Lymphadenopathy: No retroperitoneal lymphadenopathy.Masses: None.OSSEOUS: Degenerative changes of the spine; o therwise, no significant osseouslesions.OTHER: No significant abnormality of the remaining soft tissuesIMPRESSION:1. Moderate to large stool burden in the colon may represent constipation;otherwise, no significant abnormalities were present to explain the patient'sabdominal pain complaint.2. Chronic findings, as above.This final report was electronically signed by Dr Elmer Juárez MD05/17/20194:27 PMDictated By: ELMER PHAMDate: 05/17/2019 16:27 [id number] 16:20:00 Test Item Value Reference Range Interpretation Comments Lipase (test code = LIPA) 70 U/L 73-393 L STAT LAB CHEM [id number] 15:24:00 Test Item Value Reference Range Interpretation Comments Sodium (test code = NA) 138 mmol/l 138-146 Potassium (test code = K) 4.0 mmol/l 3.5-4.9 Chloride (test code = CL) 105 mmol/l 98-109 IONIZED CALCIUM (test code = ICA) 1.11 1.12-1.32 A CO2 (test code = CO2) 25 mmol/l 24-29 Glucose (test code = GLU) 87 mg/dl 70-105 BUN (test code = BUN) 9 mg/dl 6-17 Creatinine (test code = CREA) 0.5 mg/dl 0.6-1.3 L STAT LAB LACTIC [id number] 15:23:00 Test Item Value Reference Range Interpretation Comments LACTATE (test code = LAC) 1.39 mmol/l 0.90-1.70 STAT LAB CBC WITH AUTO [id number] 15:21:00 Test Item Value Reference Range Interpretation Comments WBC (test code = WBC) 8.30 10\\S\\3/ul 4.80-10.80 RBC (test code = RBC) 4.33 10\\S\\6/ul 4.20-5.40 Hemoglobin (test code = HGB) 12.8 gm/dl 12.0-14.0 Hematocrit (test code = HCT) 37.3 % 37.0-47.0 MCV (test code = MCV) 86.1 fL 81.0-99.0 MCH (test code = MCH) 29.6 pg 27.0-31.0 MCHC (test code = MCHC) 34.3 gm/dl 33.0-37.0 Platelet (test code = PLT) 281 10\\S\\3/ul 130-400 RDW (test code = RDWVC) 12.1 % 11.5-14.5 MPV (test code = MPV) 8.4 fL 7.4-10.4 A NE% (test code = NE) 67.4 % 42.0-75.0 LY% (test code = LY) 24.1 % 13.0-42.0 MO% (test code = MO) 4.8 % 4.0-14.0 EO% (test code = EO) 3.1 % 1.0-3.0 H BA% (test code = BA) 0.1 % 1.0-3.0 L IG% (test code = IG%) 0.5 % 0.0-0.4 H URINALYSIS WITH [id number] 15:08:00 Test Item Value Reference Range Interpretation Comments Color (test code = UCOLR) YELLOW Clarity (test code = UCLAR) CLEAR Glucose (test code = UGLUC) NEGATIVE NEGATIVE N Bilirubin (test code = UBILI) NEGATIVE NEGATIVE N Ketones (test code = UKET) NEGATIVE NEGATIVE N Specific [place] (test code = 1.025 1.005-1.030 A USPGR) Blood (test code = UBLD) NEGATIVE NEGATIVE N PH (test code = UPH) 6.0 4.5-8.0 A Protein (test code = UPROT) NEGATIVE NEGATIVE N Urobilinogen (test code = U UROB) 0.2 >0.2 N Nitrite (test code = UNITR) NEGATIVE NEGATIVE N Leukocyte Esterase (test code = NEGATIVE NEGATIVE N ULEUK) WBC (test code = WBCUR) None Seen 0-5 A RBC (test code = RBCUR) None Seen 0-5 A Epithial Cells (test code = U EPI) 50-60 0-10 A Bacteria (test code = UBACT) 2+ None Seen,Trace A CT ANGIO HEAD W/WO [id number] 16:28:5720 g Cathlon Above the Antecubital or higher requiredProcedure: CT ANGIO HEAD W/WO CONTRASTOrder Date: 05/12/2019 3:30 PMOrdering Provider: REHAN Farrellinical Indication: [id number]: HeadacheComparison: NoneTechnique: Using a helical scanner,sequential axial imaging of the brain wasobtained before and after the administration of the contrast medium. At anindependent workstation, 3-D reconstructions of the [place] wereobtained.This exam was performed according to the departmental dose-optimization programwhich includes automated exposure control, adjustment of the mA and/or kVaccording to patient size and/or use of iterative alejandra nstruction techniques.Findings:The supraclinoid internal carotid artery segments have a normal appearancebilaterally.The anterior and middle cerebral arteries are patent without stenosis.The distal vertebral arteries and basilar artery have a normal appearance.The posterior cerebral arteries are patent without stenosis.There is no intracranial aneurysm.There is no arteriovenous shunting noted.There is no evidence of an AVM or AVF.Superior sagittal sinus is patent.The inferior sagittal sinus is patent.The internal cerebral veins, vein of Marvin, and straight sinus are patent.The transverse and sigmoid sinuses are patent.No enhancing intracranial lesions are identified.IMPRESSION:1. Negative CT angiogram of the brain.This final report was electronically signed by Dr Farzad Dewitt MD 05/12/20194:22PMDictated By: FARZAD DEWITTDate: 05/12/2019 16:22CT ABDOMEN/PELVIS W/[id number] 14:36:05NPO 4 hours. Do not withhold medsProcedure: CT ABDOMEN/PELVIS W/CONTRASTOrder Date: 04/09/2019 8:00 AMOrdering Provider: LIZBETH LOPEZlinical Indication: R09.89: OTHER SPECIFIED SYMPTOMS AND SIGNS INVOLVING THECIRCULATORY AND RESPIRATORY SYSTEMSComparison: April 04, 2019TECHNIQUE:The abdomen and pelvis were scanned utilizing a m ulCollegeFrogtector helical scannerfrom the diaphragm to the lesser trochanter . Low osmolar IV contrast wasgiven. Coronal and sagittal reformations were obtained.This exam was performed according to the ourdepartmental dose- optimizationprogram which includes automated exposure control, adjustment of the mA and/orkV according to patient size and/or use of iterative reconstruction techniques.DISCUSSION:LOWER THORAX: Left basilar subsegmental atelectasis.HEPATOBILIARY: Diffuse hepatic steatosis is present.The gallbladder issurgically absent.SPLEEN: No splenomegaly.PANCREAS: No focal masses or ductal dilatation.ADRENALS: No adrenal nodules.KIDNEYS/URETERS: 1 mm nonobstructing stone in the interpolar region of the rightkidney. The kidneys are otherwise unremarkable.PELVIC ORGANS/BLADDER: Bladder is unremarkable.PERITONEUM / RETROPERITONEUM: Small volume free fluid is present in the pelvis.Uterus is surgically absent.LYMPH NODES: No lymphadenopathy.VESSELS: Unremarkable.GI TRACT: No distention or wall thickening. Postoperative changes of previousgastric sleeve type surgery.BONES AND SOFT TISSUES: Thereis a small fat- containing umbilical hernia. Thehernia neck measures 16 mm. Inflammatory changes are seen about the hernia.IMPRESSION:No acute process in the abdomen or pelvis.Small fat-containing umbilical hernia with adjacent inflammation stable sinceprevious exam. This may be from recent surgical intervention. Correlate withsurgical history. No discrete fluid collection.Small volume free fluid in th e pelvis.Previous hysterectomy and cholecystectomy.Punctate nonobstructing right renal calculus.Diffuse hepatic steatosis.This final report was electronically signed by Dr Silver Benitez MD 04/09/20192:29 PMDictated By: GLORY BENITEZKDate: 04/09/2019 14:29CBC WITH AUTO [id number] 09:02:00 Test Item Value Reference Range Interpretation Comments WBC (test code = 6.15 10\\S\\3/ul 4.80-10.80 WBC) RBC (test code = 3.58 10\\S\\6/ul 4.20-5.40 L RBC) Hemoglobin (test 10.7 gm/dl 12.0-14.0 L code = HGB) Hematocrit (test 31.1 % 37.0-47.0 L code = HCT) MCV (test code = 86.9 fL 81.0-99.0 MCV) MCH (test code = 29.9 pg 27.0-31.0 MCH) MCHC (test code = 34.4 gm/dl 33.0-37.0 MCHC) RDW (test code = 12.2 % 11.5-14.5 RDWVC) Platelet (test code 222 10\\S\\3/ul 130-400 = PLT) MPV (test code = 8.8 fL 7.4-10.4 A "NOT MEASUR ED" MPV) RESULTS ARE DIS PLAYED WHEN THE INSTRU MENT HAS A SUPPRESSE D OR UNREPORTABLE RE SULT. THIS WILL MOST OFTEN HAPPEN WITH THE MPV WHEN THERE IS A N ABNORMAL PLATEL ET DISTRIBUTION DU E TO A CRITICAL LOW VA LUE OR PLATELET CLUMPI NG. THE RDW MAY BE SUPPRESSED IF T HERE ARE MULTIPLE PE AKS PRESENT ON THE RBC HISTOGRAM. IN THIS CASE, A MANUAL REVIEW OF THE SLIDE WI LL BE PERFORMED, AND RBC MORPHOLOGY WILL BE NOTED ON THE RE PORT. NE% (test code = 56.3 % 42.0-75.0 NE) LY% (test code = 35.6 % 13.0-42.0 LY) MO% (test code = 5.9 % 4.0-14.0 MO) EO% (test code = 1.5 % 1.0-5.0 EO) BA% (test code = 0.2 % 0.0-3.0 BA) IG% (test code = 0.5 % 0.0-0.4 H IG%) CBC WITH AUTO [id number] 09:14:00 Test Item Value Reference Range Interpretation Comments WBC (test code = 7.08 10\\S\\3/ul 4.80-10.80 WBC) RBC (test code = 3.73 10\\S\\6/ul 4.20-5.40 L RBC) Hemoglobin (test 11.2 gm/dl 12.0-14.0 L code = HGB) Hematocrit (test 32.7 % 37.0-47.0 L code = HCT) MCV (test code = 87.7 fL 81.0-99.0 MCV) MCH (test code = 30.0 pg 27.0-31.0 MCH) MCHC (test code = 34.3 gm/dl 33.0-37.0 MCHC) RDW (test code = 12.5 % 11.5-14.5 RDWVC) Platelet (test code 241 10\\S\\3/ul 130-400 = PLT) MPV (test code = 8.7 fL 7.4-10.4 A "NOT MEASUR ED" MPV) RESULTS ARE DIS PLAYED WHEN THE INSTRU MENT HAS A SUPPRESSE D OR UNREPORTABLE RE SULT. THIS WILL MOST OFTEN HAPPEN WITH THE MPV WHEN THERE IS A N ABNORMAL PLATEL ET DISTRIBUTION DU E TO A CRITICAL LOW VA LUE OR PLATELET CLUMPI NG. THE RDW MAY BE SUPPRESSED IF T HERE ARE MULTIPLE PE AKS PRESENT ON THE RBC HISTOGRAM. IN THIS CASE, A MANUAL REVIEW OF THE SLIDE WI LL BE PERFORMED, AND RBC MORPHOLOGY WILL BE NOTED ON THE RE PORT. NE% (test code = 62.7 % 42.0-75.0 NE) LY% (test code = 28.7 % 13.0-42.0 LY) MO% (test code = 6.2 % 4.0-14.0 MO) EO% (test code = 1.7 % 1.0-5.0 EO) BA% (test code = 0.3 % 0.0-3.0 BA) IG% (test code = 0.4 % 0.0-0.4 IG%) [id number] 09:12:00 Test Item Value Reference Range Interpretation Comments Sodium (test code = 143 mmol/l 137-145 NA) Potassium (test 3.8 mmol/l 3.5-5.1 code = K) Chloride (test code 109 mmol/l 98-107 H = CL) Calcium (test code 8.1 mg/dl 8.5-10.1 L = CALC) CO2 (test code = 27 mmol/l 21-32 CO2) Glucose (test code 81 mg/dl 74-106 = GLU) BUN (test code = 9.0 mg/dl 7.0-18.0 BUN) Creatinine (test 0.7 mg/dl 0.5-1.3 code = CREA) EGFR if >60 Turkish (test code mL/min/1.73m\\ = EGFRAA) S\\2 EGFR if Non- >60 Estimate d Glomerular Turkish (test code mL/min/1.73m\\ Filtrat ion Rate (eGFR) = EGFRNA) S\\2 Reference Inter vals Decision Points for 18 years and older and average body ma ss: >= 60 Does not exc lude kidney disease. 30 - 59 Suggests modera te chronic kidney disease and indicat es the need for furthe r investigation including asses sment of proteinuria and cardiovascular factors. < 30 Usually in dicates a need for refe rral for assessment and management of c hronic kidney failure. SP PERC PLMNT MIDLINE NO PORT > 5 y/o W/[id number] 16:11:23Procedure: SP PERC PLMNT MIDLINE NO PORT > 6 y/o W/IMAGINGOrder Date: 04/07/2019 3:23 PMOrderingProvider: LIZBETH CARTERClinical Indication: Vascular accessTechnique:The patient was placed supineon the exam table with the left arm abducted. Anultrasound was performed to locate a proper venousaccess site. The upper armwas prepped and draped in the usual sterile fashion. Utilizing 1% lidocainesolution, the skin and subcutaneous tissues overlying the basilic vein wereanesthetized. Ultrasound evaluation demonstrates the vessels to be patent and apermanent ultrasound image was stored in the medical record for documentation.Then, under ultrasound guidance, the vein was punctured with a micropunctureneedle and a 0.018 guidewire was advanced into the selected vessel. The vesselswere patent and there was a permanent image stored for the permanent medicalrecord. The needle was removed and the20 gauge Powerglide catheter was advancedover the wire into the left axillary vein. The wire was removed. The catheterwas secured to the skin in the usual fashion. The patient tolerated theprocedure well and there were no immediate complications.Impression:1. Successful upper extremity vascular access.This final report was electronically signed by Dr Wiley Velázquez MD 04/07/20194:05 PMDictated By: WILEY VELÁZQUEZDate: 04/07/2019 16:05CT ABDOMEN/PELVIS W/[id number] 22:50:40 PROCEDURE INFORMATION:Exam: CT Abdomen and pelvis with contrastExam date and time: 04/04/2019 9:30 PMClinical history: 33 years old, female; Nausea and vomiting and other:Diarrhea; Abdominal pain; Localized; Right; Patient HX: Hysterectomy,appendectomy, cholecystectomy, HX of endometriosis, pain in lower ribsTECHNIQUE:Imaging protocol: Computed tomography of the abdomen and pelvis withintravenous contrast.Radiation optimization: All CT scans at this facility use at least one of thesedose optimizationtechniques: automated exposure control; mA and/or kVadjustment per patient size (includes targeted exams where dose is matched toclinical indication); or iterative reconstruction.Contrast material: ISOVUE 300; Contrast volume: 80 ml; Contrast route: IV;COMPARISON:CT ABDOMEN/PELVIS W/O CONTRAST 09/30/2018 11:04 PMFINDINGS:Lungs: The lung bases are clear.Liver: Diffuse hepatic hypoattenuation consistent with hepatic steatosis.Gallbladder and bile ducts: Postsurgical change status post cholecystectomy.Surgical clips overlie the gallbladder fossa.Pancreas: Normal. No ductal dilation.Spleen: Normal. No splenomegaly.Adrenals: Normal. No mass.Kidneys and ureters: Normal symmetric cortical enhancement of the kidneys. Nosuspicious renal mass, nephrolithiasis, or hydronephrosis. The visualizedureters are of normal course and caliber.Stomach and bowel: Mild diffuse bowel wall thickening may represent colitis.Status post gastric reduction.Appendix: Postsurgical changes status post appendectomy.Intraperitoneal space: Unremarkable. No free air. No significant fluidcollection.Vasculature: Incidental pelvic phleboliths are noted.Lymph nodes: Unremarkable. No enlarged lymph nodes.Bladder: No significant abnormal ities of the urinary bladder.Reproductive: Postsurgical changes status post hysterectomy.Bones/joints: Unremarkable. No acute fracture.Soft tissues: Fat containing umbilical hernia does not appear significantlychanged from comparison CT 09/30/18. Postsurgical changes of the anteriorabdominal wall.IMPRESSION:1. No acute CT abnormalities are demonstrated to clearly explain the patient'paige complaint.2. Mild diffuse bowel wall thickening may represent colitis.3. Hepatic steatosis.This Final report was electronically signed by Elmer Juárez MD on 10:50 PM CDT.Dictated By: ELMER PHAMDate: 04/04/2019 22:[id number] 21:22:00 Test Item Value Reference Range Interpretation Comments Lipase (test code = LIPA) 89 U/L 73-393 HEPATIC FUNCTION PANEL (LIVER)2019-04-04 21:22:00 Test Item Value Reference Range Interpretation Comments T Protein (test code = TP) 7.3 gm/dl 6.4-8.2 Albumin (test code = ALB) 3.6 gm/dl 3.4-5.0 AST (SGOT) (test code = AST) 15 U/L 15-37 ALT (SGPT) (test code = ALT) 28 U/L 13-61 Alkaline Phos (test code = ALKP) 92 U/L 45-117 Total Bilirubin (test code = TBIL) 0.3 mg/dl 0.2-1.0 Direct Bilirubin (test code = <0.1 mg/dl 0.0-0.3 N DBIL) Indirect Bilirubin (test code = 0.3 mg/dl 0.0-1.1 IBIL) STAT LAB CHEM [id number] 21:07:00 Test Item Value Reference Range Interpretation Comments Sodium (test code = NA) 140 mmol/l 138-146 Potassium (test code = K) 3.7 mmol/l 3.5-4.9 Chloride (test code = CL) 111 mmol/l 98-109 H IONIZED CALCIUM (test code = ICA) 1.13 1.12-1.32 A CO2 (test code = CO2) 26 mmol/l 24-29 Glucose (test code = GLU) 82 mg/dl 70-105 BUN (test code = BUN) 12 mg/dl 6-17 Creatinine (test code = CREA) 0.6 mg/dl 0.6-1.3 STAT LAB URINALYSIS WITHOUT [id number] 21:05:00 Test Item Value Reference Range Interpretation Comments Color (test code = UCOLR) Yellow Lt. Yellow A Clarity (test code = UCLAR) Slightly Cloudy Glucose (test code = UGLUC) 100 Negative A Bilirubin (test code = UBILI) Negative Negative N Ketones (test code = UKET) Negative Negative N Specific [place] (test code = >=1.030 1.005-1.030 A USPGR) Blood (test code = UBLD) Negative Negative N PH (test code = UPH) 5.5 4.5-8.0 A Protein (test code = UPROT) Negative Negative N Urobilinogen (test code = U 0.2 >0.2 N UROB) Nitrite (test code = UNITR) Negative Negative N Leukocyte Esterase (test code Negative Negative N = ULEUK) STAT LAB CBC WITH AUTO [id number] 21:04:00 Test Item Value Reference Range Interpretation Comments WBC (test code = WBC) 11.09 10\\S\\3/ul 4.80-10.80 H RBC (test code = RBC) 4.46 10\\S\\6/ul 4.20-5.40 Hemoglobin (test code = HGB) 13.0 gm/dl 12.0-14.0 Hematocrit (test code = HCT) 38.2 % 37.0-47.0 MCV (test code = MCV) 85.7 fL 81.0-99.0 MCH (test code = MCH) 29.1 pg 27.0-31.0 MCHC (test code = MCHC) 34.0 gm/dl 33.0-37.0 Platelet (test code = PLT) 341 10\\S\\3/ul 130-400 RDW (test code = RDWVC) 12.3 % 11.5-14.5 MPV (test code = MPV) 8.4 fL 7.4-10.4 A NE% (test code = NE) 64.5 % 42.0-75.0 LY% (test code = LY) 27.7 % 13.0-42.0 MO% (test code = MO) 5.8 % 4.0-14.0 EO% (test code = EO) 1.1 % 1.0-3.0 BA% (test code = BA) 0.4 % 1.0-3.0 L IG% (test code = IG%) 0.5 % 0.0-0.4 H STAT LAB , [id number] 21:04:00 Test Item Value Reference Range Interpretation Comments (Urine) (test code = Negative PREGU) ONLY AVAILABLE [id number] 16:05:00 Test Item Value Reference Range Interpretation Comments Sodium (test code = CANCELED mmol/l The r eleased value NA) 141 was cancele d by [id number] on 04/04/2019 16:0 5 Potassium (test code CANCELED mmol/l The released value = K) 3.9 was cancele d by [id number] on 04/04/2019 16:0 5 CO2 (test code = CANCELED mmol/l The rele ased value CO2) 23 was canceled by [id number] on 04/04/2019 16:0 5 Chloride (test code CANCELED mmol/l The r eleased value = CL) 108 was cancele d by [id number] on 04/04/2019 16:0 5 Glucose (test code = CANCELED mg/dl The r eleased value GLU) 96 was canceled by [id number] on 04/04/2019 16:0 5 Calcium (test code = CANCELED mg/dl The r eleased value CALC) 8.8 was cancele d by [id number] on 04/04/2019 16:0 5 BUN (test code = CANCELED mg/dl The relea sed value BUN) 11 was canceled by [id number] on 04/04/2019 16:0 5 Creatinine (test CANCELED mg/dl code = CREA) HISTOLOGY [id number] 11:08:00 [address] [id number]: RNUT #: [id number] Unemployment Insurance Director: Seth Valdez M.D.Surgical Pathology Consultation ReportPatient Name: LAUREN BETH Case #: [id number] Med. Rec. #:[id number] [id number] Date: 03/21/2019 : 1985(Age:33) Received: 03/23/2019 Gender: F Copy to: Reported:03/23/2019 Physician(s): Lizbeth Wolfe Specimen(s) ReceivedA: Right ovary [facility] DiagnosisRight ovary and fallopian tube, right salpingo-oophorectomy:- fibrovascular adhesions of ovary and fallopian tube. - numerous follicular cysts, benign serous cysts, and corpusalbicanswithin ovarian parenchyma. Electronically Signed Out /03/23/2019 Seth gil MD, Board Certified in Anatomic Pathology Clinical HistoryRight ovarian cyst.Gross DescriptionThe specimen is labeled right ovary. Two pieces of lr- pink tissuemeasuring7.5 x 5 by up to 3.3 cm are received. On one of the pieces of tissuethereappears to be a fallopian tube measuring 3.2 cm in length with adiameter upto 0.5 cm. Adhesions are seen along the serosal surface of the otherpiecesof tissue. Serial sectioning reveals a solid and cystic cut surfacewith thecyst varying in size from 1 up to 2 cm in greatest dimension. The cystsarefilled with clear serous fluid. Occupational Health Specialist sections of the ovaryandpossible fallopian tube are submitted in cassettes A1-A8. /03/23/2019 Seth Valdez MD, Board Certified in Anatomic Pathology Microscopic DescriptionMicroscopic examination of the right ovary reveals fibrovascularadhesionsalong the surface of the ovary as well as along the accompanyingfallopiantube. The ovarian parenchyma contains follicular cysts, benign serouscyst,as well as numerous corpus albicans. No areas of endometriosis areseen. Billing Fee Code(s): A; 45322- US TRANSVAGINAL W/PELVIS 2019-03-10 16:45:00 Patient Name: LAUREN BETH Unit No: [id number] EXAMS: CPT CODE: [id number] US TRANSVAGINAL W/PELVIS 11142 CLINICAL HISTORY: Right lower quadrant pain. Status post appendectomy. History of ovarian cyst. Real-time ultrasound examination of the pelvis was performed using transabdominal and endovaginal approach. Uterus and left ovary have been surgically removed. Right ovary is enlarged and measures 8.4 x 5.4 x 7.2 cm. It contains a hemorrhagic cyst measuring 4.6 x 3.7 x 3.9 cm and a simple cyst measuring 5.1 x 4.6 x 4.4 cm. Additional smaller cyst is also present in the r ight ovary. Blood flow is identified in the wall of the cyst. There is no extraovarian adnexal mass or significant free fluid in the pelvis. IMPRESSION: 1. Status post hysterectomy and left oophorectomy. 2. Enlargement of the right ovary with hemorrhagic cyst as well as simple cyst as described above. Blood flow is identified in the right ovary. at 4162 Reported and signed by: Mario Guidry MD CC: Hilaria Calderón MD Technologist: Dipesh Miranda RDMS, RVT Probe: [id number] Trnscrbd D/ (9901) t.YOS Orig Print D/T: S: 03/10/2019 (1642) [facility] NAME: LAUREN BETH [facility] Hilaria Calderón [address] : 1985 AGE: 33 SEX: F [place], [place] [address] LOC: DayanaraERS PHONE #: [phone] EXAM DATE: 03/10/2019 STATUS: [facility] ER FAX #: [phone] RAD NO: [id number] Page 1 Signed Report Patient Name: LAUREN BETH Unit No: [id number] EXAMS: CPT CODE: [id number] US TRANSVAGINAL W/PELVIS 46331 <Continued> [facility] NAME: LAUREN BETH Radiology Department PHYS: [place]. - Hilaria Calderón [address] : 1985 AGE: 33 SEX: F [place], [place] [address] LOC: ALONDRA PHONE #: [phone] EXAM DATE: 03/10/2019 STATUS: [facility] ER FAX #: [phone] RAD NO: [id number] Page 2 Signed Report- US TRANSVAGINAL W/[id number] 16:45:00 Patient Name: CINDA BETH Unit No: [id number] EXAMS: CPT CODE: [id number] US TRANSVAGINAL W/PELVIS 20063 CLINICAL HISTORY: Right lower quadrant pain. Status post appendectomy. History of ovarian cyst. Real-time ultrasound examination of the pelvis was performed using transabdominal and endovaginal approach. Uterus and left ovary have been surgically removed. Right ovary is enlarged and measures 8.4 x 5.4 x 7.2 cm. It contains a hemorrhagic cyst measuring 4.6 x 3.7 x 3.9 cm and a simple cyst measuring 5.1 x 4.6 x 4.4 cm. Additional smaller cyst is also present in the right ovary. Blood flow is identified in the wall of the cyst. There is no extraovarian adnexal mass or significant free fluid in the pelvis. IMPRESSION: 1. Status post hysterectomy and left oophorectomy. 2. Enlargement of the right ovary with hemorrhagic cyst as well as simple cyst as described above. Blood flow is identified in the right ovary. at 1645 Reported and signed by: Mario Guidry MD CC: Hilaria Calderón MD Technologist: Dipesh Miranda RDMS, RVT Probe: [id number] Trnscrbd D/ (7958) t.MICAELAR.YOS Orig Print D/T: S: 03/10/2019 (0664) [facility] NAME: CINDA BETH Radiology Department PHYS: [facility]. - Hilaria Calderón [address] : 1985 AGE: 33 SEX: F [place] [address] LOC: ALONDRA PHONE #: [phone] EXAM DATE: 03/10/2019 STATUS: REG ER FAX #: [phone] RAD NO: Page 1 Signed Report Patient Name: CINDA BETH Unit No: [id number] EXAMS: CPT CODE: [id number] US TRANSVAGINAL W/PELVIS 23294 <Continued> [facility] NAME: CINDA BETH Radiology Department PHYS: [place] - Hilaria Calderón [address] : 1985 AGE: 33 SEX: F [place] [address] LOC: DayanaraERS PHONE #: [phone] EXAM DATE: 03/10/2019 STATUS: REG ER FAX #: [phone] RAD NO: Page 2 Signed Report- US PELVIS [id number] 16:45:00 Patient Name: LAUREN BETH Unit No: [id number] EXAMS: CPT CODE: [id number] US PELVIS COMPLETE 92768 CLINICAL HISTORY: Right lower quadrant pain. Status post appendectomy. History of ovarian cyst. Real-time ultrasound examination of the pelvis was performed using transabdominal and endovaginal approach. Uterus and left ovary have been surgically removed. Right ovary is enlarged and measures 8.4 x 5.4 x 7.2 cm. It contains a hemorrhagic cyst measuring 4.6 x 3.7 x 3.9 cm and a simple cyst measuring 5.1 x 4.6 x 4.4 cm. Additional smaller cyst is also present in the right ovary. Blood flow is identified in the wall of the cyst. There is no extraovarian adnexal mass or significant free fluid in the pelvis. IMPRESSION: 1. Status post hysterectomy and left oophorectomy. 2. Enlargement of the right ovary with hemorrhagic cyst as well as simple cyst as described above. Blood flow is identified in the right ovary. at 9752 Reported and signed by: Mario Guidry MD CC: Hilaria Calderón MD Technologist: Dipesh Miranda RDMS, RVT Probe: Trnscrbd D/ (5994) t.SDR.YOS Orig Print D/T: S: 03/10/2019 (8628) [facility] NAME: LAUREN BETH Radiology Department PHYS: [place]. - Hilaria Calderón [address] : 1985 AGE: 33 SEX: F [place] [address] LOC: ALONDRA PHONE #: [phone] EXAM DATE: 03/10/2019 STATUS: [facility] ER FAX #: [phone] RAD NO: [id number] Page 1 Signed Report Patient Name: LAUREN BETH Unit No: [id number] EXAMS: CPT CODE: [id number] US PELVIS COMPLETE 50583 <Continued> [facility] NAME: LAUREN BETH Radiology Department PHYS: [place]. - Hilaria Calderón [address] : 1985 AGE: 33 SEX: F [place] [address] LOC: DayanaraERS PHONE #: [phone] EXAM DATE: 03/10/2019 STATUS: DEP ER FAX #: [phone] RAD NO: [id number] Page 2 Signed Report- US PELVIS COMPLETE 2019-03-10 16:45:00 Patient Name: CINDA BETH Unit No: [id number] EXAMS: CPT CODE: [id number] US PELVIS COMPLETE 65205 CLINICAL HISTORY: Right lower quadrant pain. Status post appendectomy. History of ovarian cyst. Real-time ultrasound examination of the pelvis was performed using transabdominal and endovaginal approach. Uterus and left ovary have been surgically removed. Right ovary is enlarged and measures 8.4 x 5.4 x 7.2 cm. It contains a hemorrhagic cyst measuring 4.6 x 3.7 x 3.9 cm and a simple cyst measuring 5.1 x 4.6 x 4.4 cm. Additional smaller cyst is also present in the r ight ovary. Blood flow is identified in the wall of the cyst. There is no extraovarian adnexal mass or significant free fluid in the pelvis. IMPRESSION: 1. Status post hysterectomy and left oophorectomy. 2. Enlargement of the right ovary with hemorrhagic cyst as well as simple cyst as described above. Blood flow is identified in the right ovary. at 1645 Reported and signed by: Mario Guidry MD CC: Hilaria Calderón MD Technologist: Dipesh Miranda RDMS, T Probe: Trnscrbd D/ (3545) SouravREmmaYOS Orig Print D/T: S: 03/10/2019 (3514) [facility] NAME: CINDA BETH Radiology Department PHYS: SUE.Hilaria Diaz [address] : 1985 AGE: 33 SEX: F [place], [place] [address] LOC: FEmmaERS PHONE #: [phone] EXAM DATE: 03/10/2019 STATUS: REG ER FAX #: [phone] RAD NO: Page 1 Signed Report Patient Name: CINDA BETH Unit No: [id number] EXAMS: CPT CODE: [id number] US PELVIS COMPLETE 70017 <Continued> [facility] NAME: CINDA BETH R adiology Department PHYS: Hilaria Maldonado [address] : 1985 AGE: 33 SEX: F [place] [address] LOC: ALONDRA PHONE #: [phone] EXAM DATE: 03/10/2019 STATUS: REG ER FAX #: [phone] RAD NO: Page 2 Signed ReportCBC W/AUTO DIFF 2019-03-10 16:18:00 Test Item Value Reference Range Interpretation Comments WHITE BLOOD CELL (test code = WBC) 8.6 K/mm3 6.6-12.1 N RED BLOOD CELL (test code = RBC) 4.69 M/mm3 3.45-5.01 N HEMOGLOBIN (test code = HGB) 13.7 g/dL 10.7-13.9 N HEMATOCRIT (test code = HCT) 40.4 % 32.1-42.1 N MEAN CELL VOLUME (test code = MCV) 86 fL 84.1-94.8 N MEAN CELL HGB (test code = MCH) 29.2 pg 27-35 N MEAN CELL HGB CONCETRATION (test 33.9 gm/dL 32.2-34.1 N code = MCHC) RED CELL DISTRIBUTION WIDTH (test 12.8 % 12.4-16.5 N code = RDW) PLATELET COUNT (test code = PLT) 327 K/mm3 133-385 N IMMATURE PLATELET FRACTION (test 0.0 % 0.0-10.8 N code = IPF) MEAN PLATELET VOLUME (test code = 8.7 fl 9.1-12.7 L MPV) NEUTROPHIL % (test code = NT%) 54.3 % 56.5-79.4 L LYMPHOCYTE % (test code = LY%) 37.4 % 14.3-34.3 H MONOCYTE % (test code = MO%) 6.7 % 5.1-10.4 N EOSINOPHIL % (test code = EO%) 0.5 % 0.1-3.0 N BASOPHIL % (test code = BA%) 0.5 % 0.1-1.0 N NEUTROPHIL # (test code = NT#) 4.7 K/mm3 LYMPHOCYTE # (test code = LY#) 3.2 K/mm3 MONOCYTE # (test code = MO#) 0.6 K/mm3 EOSINOPHIL # (test code = EO#) 0.04 K/mm3 BASOPHIL # (test code = BA#) 0.0 K/mm3 RBC MORPHOLOGY REQUIRED (test code NORMAL NORMAL = RBCM) PLATELET MORPHOLOGY REQUIRED (test NORMAL NORMAL code = PLTMR) UA RFLX MICR CULT IF [id number] 16:07:00 Test Item Value Reference Range Interpretation Comments UA COLOR (test code = COLU) YELLOW YELLOW UA APPEARANCE (test code = APPU) HAZY CLEAR UA GLUCOSE DIPSTICK (test code = NEGATIVE NEGATIVE DGLUU) UA BILIRUBIN DIPSTICK (test code = NEGATIVE NEGATIVE BILU) UA KETONE DIPSTICK (test code = TRACE NEGATIVE KETU) UA SPECIFIC GRAVITY (test code = 1.025 1.001-1.035 N SGU) UA BLOOD DIPSTICK (test code = NEG NEGATIVE SARA) UA PH DIPSTICK (test code = LORETTA) 6.0 5-9 UA PROTEIN DIPSTICK (test code = NEGATIVE NEGATIVE PROU) UA UROBILINIOGEN DIPSTICK (test 0.2 EU/dL <=1.0 code = URO) UA NITRITE DIPSTICK (test code = NEGATIVE NEGATIVE ISAAK) UA LEUKOCYTE ESTERASE DIPSTICK NEG NEGATIVE (test code = LEUU) UA WBC (test code = WBCU) 3-5 #/hpf NONE SEEN A UA RBC (test code = RBCU) 3-5 #/hpf NONE SEEN A UA EPITHELIAL CELLS (test code = MANY #/HPF RARE-FEW A EPIU) UA BACTERIA (test code = BACU) MANY #/hpf NONE SEEN A UA YEAST (test code = YEASTU) FEW #/hpf NONE SEEN A Indication for culture: Suprapubic PainUR HCG [id number] 16:07:00 Test Item Value Reference Range Interpretation Comments UR HCG QUAL (test NEGATIVE 1. Very di lute urine code = HCGQLU) specimens, as indicated by a lowspecific g ravity, may not contain rep resentative levels ofhCG. 2 . False negative result s may occur when the levels of hCGare below the sensi tivity level of the test. If is still suspec michael, a first morningurine sp ecimen should be colle cted 48 hours later and tested. Indication for culture: Suprapubic PainUA RFLX MICR CULT IF INDICATED 2019-03-10 16:04:00 Test Item Value Reference Range Interpretation Comments UA COLOR (test code = COLU) YELLOW YELLOW UA APPEARANCE (test code = APPU) HAZY CLEAR UA GLUCOSE DIPSTICK (test code = NEGATIVE NEGATIVE DGLUU) UA BILIRUBIN DIPSTICK (test code = NEGATIVE NEGATIVE BILU) UA KETONE DIPSTICK (test code = TRACE NEGATIVE KETU) UA SPECIFIC GRAVITY (test code = 1.025 1.001-1.035 N SGU) UA BLOOD DIPSTICK (test code = SARA) NEG NEGATIVE UA PH DIPSTICK (test code = LORETTA) 6.0 5-9 UA PROTEIN DIPSTICK (test code = NEGATIVE NEGATIVE PROU) UA UROBILINIOGEN DIPSTICK (test 0.2 EU/dL <=1.0 code = URO) UA NITRITE DIPSTICK (test code = NEGATIVE NEGATIVE ISAAK) UA LEUKOCYTE ESTERASE DIPSTICK NEG NEGATIVE (test code = LEUU) UA WBC (test code = WBCU) #/hpf NONE SEEN UA EPITHELIAL CELLS (test code = #/HPF RARE-FEW EPIU) Indication for culture: Suprapubic PainUR HCG [id number] 16:04:00 Test Item Value Reference Range Interpretation Comments UR HCG QUAL (test NEGATIVE 1. Very di lute urine code = HCGQLU) specimens, as indicated by a lowspecific g ravity, may not contain rep resentative levels ofhCG. 2 . False negative result s may occur when the levels of hCGare below the sensi tivity level of the test. If is still suspec michael, a first morningurine sp ecimen should be colle cted 48 hours later and tested. Indication for culture: Suprapubic PainUA RFLX MICR CULT IF INDICATED 2019-03-10 15:55:00 Test Item Value Reference Range Interpretation Comments UA COLOR (test code = COLU) YELLOW UA APPEARANCE (test code = APPU) CLEAR UA GLUCOSE DIPSTICK (test code = NEGATIVE DGLUU) UA BILIRUBIN DIPSTICK (test code = NEGATIVE BILU) UA KETONE DIPSTICK (test code = KETU) NEGATIVE UA SPECIFIC GRAVITY (test code = SGU) 1.001-1.035 UA BLOOD DIPSTICK (test code = SARA) NEGATIVE UA PH DIPSTICK (test code = LORETTA) 5-9 UA PROTEIN DIPSTICK (test code = PROU) NEGATIVE UA UROBILINIOGEN DIPSTICK (test code = mg/dL NEG URO) UA NITRITE DIPSTICK (test code = ISAAK) NEGATIVE UA LEUKOCYTE ESTERASE DIPSTICK (test NEG code = LEUU) UA WBC (test code = WBCU) #/hpf NONE SEEN UA EPITHELIAL CELLS (test code = EPIU) #/HPF RARE-FEW Indication for culture: Suprapubic PainUR HCG [id number] 15:55:00 Test Item Value Reference Range Interpretation Comments UR HCG QUAL (test NEGATIVE 1. Very di lute urine code = HCGQLU) specimens, as indicated by a lowspecific g ravity, may not contain rep resentative levels ofhCG. 2 . False negative result s may occur when the levels of hCGare below the sensi tivity level of the test. If is still suspec michael, a first morningurine sp ecimen should be colle cted 48 hours later and tested. Indication for culture: Suprapubic PainED2 [id number] 01:18:00 Test Item Value Reference Range Interpretation Comments WBC (test code = WBC) 8.9 10\\S\\9/L 3.5-10.0 LY% (test code = LY) 35.1 % 15.0-50.0 MIDS% (test code = MIDS) 7.6 % 2.0-15.0 Granulocytes % (test code = 57.3 % 35.0-80.0 GRA%) Lymphocytes (test code = 3.1 10\\S\\9/L 0.5-5.0 LYMPH) MID (test code = MID) 0.7 10\\S\\9/L 0.1-1.5 Granulocytes (test code = 5.1 10\\S\\9/L 1.2-8.0 GRAN) RBC (test code = RBC) 4.18 10\\S\\12/L 3.50-5.50 Hemoglobin (test code = HGB) 12.0 gm/dl 11.5-16.5 Hematocrit (test code = HCT) 35.4 % 35.0-55.0 MCV (test code = MCV) 84.7 fL 75.0-100.0 MCH (test code = MCH) 28.8 pg 25.0-35.0 MCHC (test code = MCHC) 34.0 gm/dl 31.0-38.0 RDW % (test code = RDW%) 13.1 % 11.0-16.0 Platelet (test code = PLT) 258 10\\S\\9/L 100-400 MPV (test code = MPV) 6.9 fL 8.0-11.0 A ED2 URINE [id number] 00:55:00 Test Item Value Reference Range Interpretation Comments Color (test code = UCOLR) Yellow Lt. Yellow A Clarity (test code = UCLAR) Clear Glucose (test code = UGLUC) NEGATIVE NEGATIVE N Bilirubin (test code = UBILI) NEGATIVE NEGATIVE N Ketones (test code = UKET) NEGATIVE NEGATIVE N Specific [place] (test code = USPGR) 1.030 1.005-1.030 A Blood (test code = UBLD) NEGATIVE NEGATIVE N PH (test code = UPH) 6.0 4.5-8.0 A Protein (test code = UPROT) Trace NEGATIVE A Urobilinogen (test code = U UROB) 0.2 >0.2 N Nitrite (test code = UNITR) NEGATIVE NEGATIVE N Leukocyte Esterase (test code = NEGATIVE NEGATIVE N ULEUK) ED2 , [id number] 00:54:00 Test Item Value Reference Range Interpretation Comments (Urine) (test code = Negative PREGU) [id number] 13:07:00 Test Item Value Reference Range Interpretation Comments Lipase (test code = LIPA) 106 U/L 73-[address] ABDOMEN/PELVIS W/[id number] 12:24:12Procedures: ED2 CT ABDOMEN/PELVIS W/CONTRASTExam Date: 02/07/2019 10:11 AMOrdering Physician: PORFIRIO SOTOMAYORClinical Indication: [id number]: Epigastric painComparison: CT abdomen/pelvis, 01/27/19TECHNIQUE: Spiral multislice scanning was obtained from the lung bases throughthe bony pelvis with intravenous contrast only. 2-D reconstructions wereobtained according to our usual protocol.This exam was pe rformed according to the our departmental dose-optimizationprogram which includes automated exposurecontrol, adjustment of the mA and/orkV according to patient size and/or use of iterative reconstruction techniques.Findings:THORAX:Lung bases: No significant abnormality of the lung bases.Heart: No significant abnormality of the visualized cardiac or mediastinalstructures.UPPER ABDOMEN:Liver: Hypoattenuation consistent with hepatic steatosis.Gallbladder: Absent. Surgical clips within gallbladder fossa.Pancreas: Normal.Spleen: Normal.Adrenals: Normal.URINARY:Kidneys: Normal symmetric cortical enhancement. Punctate nonobstructive stonewithin the lower pole of the right kidney. No nephrolithiasis of the leftkidney. No hydronephrosis.Ureters: The ureters are of normal course and caliber.Urinary bladder: No significant abnormality of the urinary bladder.REPRODUCTIVE:Organs: Postsurgical changes status post hysterectomy. No significant freefluid in the pelvis. A well-circumscribed hypoattenuating 8 x 7 x 6 cm mass ispresent within the right adnexa with a prominent septation. This likelyrepresents a large right ovarian cyst. No significant abnormality of the leftadnexa.Free fluid: None.I ncidental pelvic phleboliths are noted.GASTROINTESTINAL:Large bowel: No significant abnormality.Appendix: The appendix is not clearly identified on this exam; however, nopericecal inflammatory stranding or free fluid is demonstrated.Small bowel: Normal.Stomach: Postsurgical change status post gastric reduction.Mesentery: Normal.RETROPERITONEUM:Aorta: Atherosclerotic calcific plaque of the aortawithout aneurysmaldilatation. No significant retroperitoneal masses or lymphadenopathy.Lymphadenopathy: No retroperitoneal lymphadenopathy.Masses: None.OSSEOUS: No significant CT abnormality of the o sseous structures.OTHER: No significant abnormality of the remaining soft tissuesIMPRESSION:1. No acute abnormalities are clearly demonstrated to explain the etiology ofthe patient's epigastric pain.2. Right adnexal 8 cm predominantly hypoattenuating circumscribed mass likelyrepresents an ovarian cyst; however, further evaluation with transabdominal andendovaginal pelvic sonography is recommended.3.Nonobstructive punctate right renal nephrolith.4. Postsurgical change status post gastric reduction,cholecystectomy andhysterectomy.This final report was electronically signed by Dr Elmer Juárez MD02/07/2019 12:17 PMDictated By: ELMER PHAMDate: 02/07/2019 12:17ED2 [id number] 10:48:00 Test Item Value Reference Range Interpretation Comments Sodium (test code = NA) 141 mmol/l 128-145 Potassium (test code = K) 3.8 mmol/l 3.6-5.1 CO2 (test code = CO2) 25 mmol/l 18-33 Chloride (test code = CL) 104 mmol/l 98-108 Glucose (test code = GLU) 107 mg/dl 73-118 Calcium (test code = CALC) 9.8 mg/dl 8.0-10.3 BUN (test code = BUN) 9 mg/dl 7-22 Creatinine (test code = CREA) 0.7 mg/dl 0.6-1.2 Alkaline Phos (test code = ALKP) 88 U/L 42-141 ALT (SGPT) (test code = ALT) 30 U/L 10-47 AST (SGOT) (test code = AST) 25 U/L 11-38 Total Bilirubin (test code = TBIL) 0.6 mg/dl 0.2-1.6 Albumin (test code = ALB) 3.6 gm/dl 3.3-5.5 T Protein (test code = TP) 7.6 gm/dl 6.4-8.1 ED2 URINE [id number] 10:45:00 Test Item Value Reference Range Interpretation Comments Color (test code = UCOLR) Yellow Lt. Yellow A Clarity (test code = UCLAR) Sl Cloudy Glucose (test code = UGLUC) NEGATIVE NEGATIVE N Bilirubin (test code = UBILI) NEGATIVE NEGATIVE N Ketones (test code = UKET) NEGATIVE NEGATIVE N Specific [place] (test code = 1.025 1.005-1.030 A USPGR) Blood (test code = UBLD) NEGATIVE NEGATIVE N PH (test code = UPH) 5.5 4.5-8.0 A Protein (test code = UPROT) NEGATIVE NEGATIVE N Urobilinogen (test code = U UROB) 0.2 >0.2 N Nitrite (test code = UNITR) NEGATIVE NEGATIVE N Leukocyte Esterase (test code = NEGATIVE NEGATIVE N ULEUK) ED2 , [id number] 10:45:00 Test Item Value Reference Range Interpretation Comments (Urine) (test code = Negative PREGU) ED2 [id number] 10:44:00 Test Item Value Reference Range Interpretation Comments WBC (test code = WBC) 8.5 10\\S\\9/L 3.5-10.0 LY% (test code = LY) 32.3 % 15.0-50.0 MIDS% (test code = MIDS) 5.5 % 2.0-15.0 Granulocytes % (test code = 62.2 % 35.0-80.0 GRA%) Lymphocytes (test code = 2.7 10\\S\\9/L 0.5-5.0 LYMPH) MID (test code = MID) 0.6 10\\S\\9/L 0.1-1.5 Granulocytes (test code = 5.2 10\\S\\9/L 1.2-8.0 GRAN) RBC (test code = RBC) 4.69 10\\S\\12/L 3.50-5.50 Hemoglobin (test code = HGB) 13.5 gm/dl 11.5-16.5 Hematocrit (test code = HCT) 39.7 % 35.0-55.0 MCV (test code = MCV) 84.5 fL 75.0-100.0 MCH (test code = MCH) 28.9 pg 25.0-35.0 MCHC (test code = MCHC) 34.2 gm/dl 31.0-38.0 RDW % (test code = RDW%) 12.7 % 11.0-16.0 Platelet (test code = PLT) 291 10\\S\\9/L 100-400 MPV (test code = MPV) 6.8 fL 8.0-11.[address] ABDOMEN/PELVIS [id number] 12:29:19s/p hysterectomy; rlq pain Procedure: CT ABDOMEN/PELVIS W/CONTRASTOrder Date: 01/27/2019 10:57 AMOrdering Provider: DR SILVA ACOSTAClinical Indication: [id number]: Abdominal painComparison: September 30, 2018TECHNIQUE:Theabdomen and pelvis were scanned utilizing a multidetector helical scannerfrom the diaphragm to the lesser trochanter . Low osmolar IV contrast wasgiven. Coronal and sagittal reformations were obtained.This exam was performed according to the our departmental dose-optimizationprogram which includes automated exposure control, adjustment of the mA and/orkV according to patient size and/or use of iterative reconstruction techniques.DISCUSSION:LOWER THORAX: Normal.HEPATOBILIARY: Mild diffuse hepatic steatosis is present. The gallbladder issurgically absent.SPLEEN: No splenomegaly.PANCREAS: No focal masses or ductal dilatation.ADRENALS: No adrenal nodules.KIDNEYS/URETERS: No hydronephrosis, stones, orsolid mass lesions.PELVIC ORGANS/BLADDER: Uterus is surgically absent. Bilobed appearing ovariancystmeasuring maximally up to 5 cm in the right adnexal region is present andis stable. Previous ultrasound from 08/09/2018 demonstrate the presence of 2separate simple cysts. No discrete fluid collection isseen in the hysterectomybed.PERITONEUM / RETROPERITONEUM: No free air or fluid.LYMPH NODES: No lymphadenopathy.VESSELS: Unremarkable.GI TRACT: No distention or wall thickening.BONES AND SOFT TISSUES: No acute abnormality. Interval improvement in previouslyseen inflammatory changes in the right abdominal wall subcutaneous fat. No fluidcollection.IMPRESSION:Stable appearance of simple cysts in the right ovary.Postoperative changes of a hysterectomy without a discrete fluid collection.Stable postoperative changes of previous gastric sleeve and cholecystectomy.Millimetric calculi in bilateral kidneys are better appreciated on the recentlyperformed noncontrast CT exam. No hydronephrosis.This final repor t was electronically signed by Dr Silver Benitez MD 01/27/201912:23 PMDictated By: GLORY BENITEZKDate: 01/27/2019 12:23URINALYSIS WITH [id number] 12:10:00 Test Item Value Reference Range Interpretation Comments Color (test code = UCOLR) YELLOW Clarity (test code = UCLAR) CLEAR Glucose (test code = UGLUC) NEGATIVE NEGATIVE N Bilirubin (test code = UBILI) NEGATIVE NEGATIVE N Ketones (test code = UKET) NEGATIVE NEGATIVE N Specific [place] (test code = USPGR) <=1.005 1.005-1.030 A Blood (test code = UBLD) NEGATIVE NEGATIVE N PH (test code = UPH) 6.0 4.5-8.0 A Protein (test code = UPROT) NEGATIVE NEGATIVE N Urobilinogen (test code = U UROB) 0.2 >0.2 N Nitrite (test code = UNITR) NEGATIVE NEGATIVE N Leukocyte Esterase (test code = TRACE NEGATIVE A ULEUK) WBC (test code = WBCUR) 0-1 0-5 A RBC (test code = RBCUR) 0-10 0-5 A Epithial Cells (test code = U EPI) 0-10 0-10 N Mucous (test code = UMUC) Trace None Seen A Bacteria (test code = UBACT) Trace None Seen,Trace N [id number] 11:49:00 Test Item Value Reference Range Interpretation Comments Lipase (test code = LIPA) 91 U/L 73-393 AMYLASE, [id number] 11:49:00 Test Item Value Reference Range Interpretation Comments Amylase (test code = AMYL) 45 U/L 25-115 STAT LAB CHEM [id number] 11:25:00 Test Item Value Reference Range Interpretation Comments Sodium (test code = NA) 140 mmol/l 138-146 Potassium (test code = K) 4.0 mmol/l 3.5-4.9 Chloride (test code = CL) 107 mmol/l 98-109 IONIZED CALCIUM (test code = ICA) 1.14 CO2 (test code = CO2) 21 mmol/l 24-29 L Glucose (test code = GLU) 102 mg/dl 70-105 BUN (test code = BUN) 9 mg/dl 6-17 Creatinine (test code = CREA) 0.5 mg/dl 0.6-1.3 L STAT LAB CBC WITH AUTO [id number] 11:23:00 Test Item Value Reference Range Interpretation Comments WBC (test code = WBC) 9.01 10\\S\\3/ul 4.80-10.80 RBC (test code = RBC) 4.73 10\\S\\6/ul 4.20-5.40 Hemoglobin (test code = HGB) 13.4 gm/dl 12.0-14.0 Hematocrit (test code = HCT) 40.4 % 37.0-47.0 MCV (test code = MCV) 85.4 fL 81.0-99.0 MCH (test code = MCH) 28.3 pg 27.0-31.0 MCHC (test code = MCHC) 33.2 gm/dl 33.0-37.0 Platelet (test code = PLT) 323 10\\S\\3/ul 130-400 RDW (test code = RDWVC) 12.2 % 11.5-14.5 MPV (test code = MPV) 8.4 fL 7.4-10.4 A NE% (test code = NE) 62.9 % 42.0-75.0 LY% (test code = LY) 30.9 % 13.0-42.0 MO% (test code = MO) 4.1 % 4.0-14.0 EO% (test code = EO) 1.1 % 1.0-3.0 BA% (test code = BA) 0.4 % 1.0-3.0 L IG% (test code = IG%) 0.6 % 0.0-0.4 H US PELVIS [id number] 07:55:25h/o complex right ovarian cystsProcedure: Pelvic ultrasound.CLINICAL INDICATION: Right lower quadrant pain. Status post hysterectomyOrder Date: 12/07/2018 2:07 AMCOMPARISON: CT abdomen and pelvis September 30, 2018 as well as pelvic ultrasoundMay 13, 2018TECHNIQUE: Transabdominal sonography was performed with color flow Doppler. Notransvaginal examination performed.FINDINGS:That is post hysterectomy. Status post left oophorectomy.N ormal arterial flow to the right ovary without evidence of variant origin.Ovarian volume of 107 mL's. This was seen complex cyst is no longer present.However, there are 2 simple appearing cysts, one measuring 3.6 cm and a secondmeasuring 2.8 cm.There is no free fluid.IMPRESSION:1. Resolution of complex cyst seen on prior examination with 2 simple cystswithin the right ovary. Otherwise, no focal abnormality.This final report was electronically signed by Dr Wiley Velázquez MD 12/07/20187:49 AMDictated By: WILEY VELÁZQUEZDate: 12/07/2018 07:[id number] 03:11:00 Test Item Value Reference Range Interpretation Comments Lipase (test code = LIPA) 136 U/L 73-393 HEPATIC FUNCTION PANEL (LIVER)2018-12-07 03:10:00 Test Item Value Reference Range Interpretation Comments T Protein (test code = TP) 6.7 gm/dl 6.4-8.2 Albumin (test code = ALB) 3.3 gm/dl 3.4-5.0 L AST (SGOT) (test code = AST) 17 U/L 15-37 ALT (SGPT) (test code = ALT) 29 U/L 13-61 Alkaline Phos (test code = ALKP) 100 U/L 45-117 Total Bilirubin (test code = TBIL) 0.1 mg/dl 0.2-1.0 L Direct Bilirubin (test code = <0.1 mg/dl 0.0-0.3 N DBIL) Indirect Bilirubin (test code = 0.1 mg/dl 0.0-1.1 IBIL) STAT LAB CHEM [id number] 02:41:00 Test Item Value Reference Range Interpretation Comments Sodium (test code = NA) 141 mmol/l 138-146 Potassium (test code = K) 4.1 mmol/l 3.5-4.9 Chloride (test code = CL) 106 mmol/l 98-109 IONIZED CALCIUM (test code = ICA) 1.15 CO2 (test code = CO2) 22 mmol/l 24-29 L Glucose (test code = GLU) 101 mg/dl 70-105 BUN (test code = BUN) 11 mg/dl 6-17 Creatinine (test code = CREA) 0.5 mg/dl 0.6-1.3 L STAT LAB CBC WITH AUTO [id number] 02:39:00 Test Item Value Reference Range Interpretation Comments WBC (test code = WBC) 8.51 10\\S\\3/ul 4.80-10.80 RBC (test code = RBC) 4.32 10\\S\\6/ul 4.20-5.40 Hemoglobin (test code = HGB) 12.2 gm/dl 12.0-14.0 Hematocrit (test code = HCT) 37.0 % 37.0-47.0 MCV (test code = MCV) 85.6 fL 81.0-99.0 MCH (test code = MCH) 28.2 pg 27.0-31.0 MCHC (test code = MCHC) 33.0 gm/dl 33.0-37.0 Platelet (test code = PLT) 289 10\\S\\3/ul 130-400 RDW (test code = RDWVC) 12.2 % 11.5-14.5 MPV (test code = MPV) 8.5 fL 7.4-10.4 A NE% (test code = NE) 55.6 % 42.0-75.0 LY% (test code = LY) 36.5 % 13.0-42.0 MO% (test code = MO) 5.3 % 4.0-14.0 EO% (test code = EO) 1.9 % 1.0-3.0 BA% (test code = BA) 0.2 % 1.0-3.0 L IG% (test code = IG%) 0.5 % 0.0-0.4 H URINALYSIS WITH [id number] 02:37:00 Test Item Value Reference Range Interpretation Comments Color (test code = UCOLR) YELLOW Clarity (test code = UCLAR) CLEAR Glucose (test code = UGLUC) 500 NEGATIVE A Bilirubin (test code = UBILI) NEGATIVE NEGATIVE N Ketones (test code = UKET) TRACE NEGATIVE A Specific [place] (test code = USPGR) >=1.030 1.005-1.030 A Blood (test code = UBLD) NEGATIVE NEGATIVE N PH (test code = UPH) 5.5 4.5-8.0 A Protein (test code = UPROT) NEGATIVE NEGATIVE N Urobilinogen (test code = U UROB) 0.2 >0.2 N Nitrite (test code = UNITR) NEGATIVE NEGATIVE N Leukocyte Esterase (test code = NEGATIVE NEGATIVE N ULEUK) WBC (test code = WBCUR) 0-5 0-5 N RBC (test code = RBCUR) 0-5 0-5 N Epithial Cells (test code = U EPI) 60-75 0-10 A Mucous (test code = UMUC) Small None Seen A Bacteria (test code = UBACT) 2+ None Seen,Trace A CULTURE, [id number] 07:39:00CULTURE RIGHT ABDOMEN WOUND CARE DEPT Specimen: AbdomenCollected: 10/15/2018 15:48 Status: Final Last Updated: 10/17/2018 01:39(1) CULTURE RIGHT ABDOMEN WOUND CARE DEPT Culture Result (Final) (Final) Few Staphylococcus aureus Isolate (Final) (Final) Staphylococcus aureus Ciprofloxacin <=0.5 SClindamycin 0.25 S Daptomycin 0.25 S Erythromycin 0.5 S Gentamicin <=0.5 S Levofloxacin <=0.12 S Linezolid 4 S Moxifloxacin <=0.25 S Oxacillin 0.5 S Rifampicin <=0.5 S Tetracycline <=1 S Tigecycline <=0.12 S Trimeth/Sulfa <=10 S Vancomycin 1 S Cef oxitin Sc (+/-) Negative - ICR (+/-) Negative -XR CHEST AP/PA 1 [id number] 05:15:17Procedure: XR CHEST AP/PA 1 VIEWOrder Date: 09/30/2018 8:28 PMOrdering Provider: DIMAS Haskinsinical Indication: [id number]: Acute chest painComparison: May 13, 2017Findings:Cardiac size is magnified by technique.Pulmonary vasculature is normal.Mediastinal contour is normal.Aortic contouris normal.There is no consolidation or effusion.There is no evidence of active tuberculosis.There isno mass or pneumothorax.There is no skeletal abnormality.Impression: Negative AP portable chest x-ray.This final report was electronically signed by Dr Farzad Dewitt MD 10/01/20185:08 AMDictated By: FARZAD DEWITTDate: 10/01/2018 05:08CT ABDOMEN/PELVIS W/O CONTRAST 2018-10-01 00:42:26NPO 4 hours. Do not withhold medsEXAM:CT Abdomen and Pelvis Without ContrastEXAM DATE/TIME:09/30/2018 10:59 PMCLINICAL HISTORY:33 yearsold, female; Pain; Abdominal pain; Other: Lower abdominal pain; Priorsurgery; Surgery date: <1 month; Surgery type: Melanoma removed from ruq 2weeks ago. Over 6 months ago: Hysterectomy, csection x 2, abdominal adhesionsremoved, lithotripsy, multiple cystectomys; Patient HX: Lower abdominal pain,redness to ruq, loss of appetite, nausea.TECHNIQUE:Imaging protocol: Axial computed tomography images of the abdomen and pelviswithout contrast. Reformatted coronal and sagittal images were reviewed.Radiation optimization: All CT scans at this facility use at least one ofthese dose optimization techniques: automated exposure control; mA and/or kVadjustment per patient size (includes targeted exams wheredose is matched toclinical indication); or iterative reconstruction.COMPARISON:CT ABDOMEN/PELVIS W/CONTRAST 07/31/2016, no available report. The report of anabdomen/pelvis CT performed 06/21/2017 was reviewed, the images are notavailable for direct comparison.FINDINGS:Lower thorax: There is mild dependent subsegmental atelectasis in thebilateral lower lobes. The heart size is normal. Mild elevation of the rightdiaphragm.ABDOMEN:Liver: Unremarkable.Gallbladder and bile ducts: Post cholecystectomy. No biliary ductaldilatation.Pancreas: Unremarkable. No ductal dilation.Spleen: Unremarkable. No splenomegaly.Adrenals: Unremarkable. No mass.Kidneys and ureters: There is an approximately 3 mm calculus in the mid toupper pole collecting system of the right kidney and a 3 mm calculus in thelower pole collecting system of the left kidney. No additional demonstrableurinary tract calculus. No hydronephrosis.Stomach and bowel: There is a nonspecific nonobstructive bowel gas pattern.There are postsurgicalchanges of a gastric sleeve. There are air and fluid inthe lumen of nondistended segments of the small bowel in a nonspecific pattern.There is a floppy cecum located in the right mid abdomen.Appendix:The appendix is not seen. There are no demonstrable pericecalinflammatory changes.PELVIS:Bladder: Unr emarkable.Reproductive: Post hysterectomy. There are 2 right ovarian cysts measuringapproximately 3.5 cm and 2.7 cm, similar to 07/31/2016, incompletely assessedon this examination.ABDOMEN and PELVIS:Intraperitoneal space: No free air. No significant fluid collection.Bones/joints: Mild degenerative changes of the spine. No acute osseousfindings.Soft tissues: There is a stable small umbilical hernia containing fat. Thereis a stable small supraumbilical anterior abdominal wall hernia containing fatjust to the right of midline, the hernia sac measuring a maximal diameter ofapproximately 2 cm (image50 series 2). There are several surgical clips in theanterior subcutaneous fat of the right abdomen.In this location there is anapproximately 4 x 2 cm focus of fluid attenuation with adjacent patchyopacities and segmental skin thickening concerning for inflammation/cellulitis(e.g. image 37 series 2).Evaluation for an abscess is limited due to lack ofintravenous contrast.Vasculature: No abdominal aortic aneurysm. Calcified pelvic phleboliths.Lymph nodes: No enlarged lymph nodes.Other: Please notethat lack of intravenous contrast limits evaluation of thevasculature and organs.IMPRESSION:1. Thereare several surgical clips in the anterior subcutaneous fat of theright abdomen. In this location there is a 4 cm focus of fluid attenuation withadjacent patchy opacities and segmental skin thickening concerning forinflammation/cellulitis. Evaluation for an abscess is limited due to lack ofintravenouscontrast.2. Status post gastric sleeve, cholecystectomy and hysterectomy.3. Subcentimeter calculus in each kidney. No hydronephrosis.4. Nonspecific nonobstructive bowel gas pattern.5. The appendix is not seen. There are no demonstrable pericecal inflammatorychanges.6. Right ovarian cysts are incompletely assessed on this examination, butsimilar to the abdomen/pelvis CT performed 07/31/2016.This Finalreport was electronically signed by Rehan Azar MD on 01 Oct 201812:42 AM CDT.Dictated By: REHAN AZARDate: 10/01/2018 00:[id number] 21:37:00 Test Item Value Reference Range Interpretation Comments Lipase (test code = LIPA) 82 U/L 73-393 HEPATIC FUNCTION PANEL (LIVER)2018-09-30 21:37:00 Test Item Value Reference Range Interpretation Comments T Protein (test code = TP) 7.3 gm/dl 6.4-8.2 Albumin (test code = ALB) 3.8 gm/dl 3.4-5.0 AST (SGOT) (test code = AST) 22 U/L 15-37 ALT (SGPT) (test code = ALT) 25 U/L 13-61 Alkaline Phos (test code = ALKP) 105 U/L 45-117 Total Bilirubin (test code = TBIL) 0.6 mg/dl 0.2-1.0 Direct Bilirubin (test code = DBIL) 0.1 mg/dl 0.0-0.3 Indirect Bilirubin (test code = 0.5 mg/dl 0.0-1.1 IBIL) STAT LAB CHEM [id number] 21:10:00 Test Item Value Reference Range Interpretation Comments Sodium (test code = NA) 140 mmol/l 138-146 Potassium (test code = K) 3.7 mmol/l 3.5-4.9 Chloride (test code = CL) 105 mmol/l 98-109 IONIZED CALCIUM (test code = ICA) 1.07 CO2 (test code = CO2) 25 mmol/l 24-29 Glucose (test code = GLU) 83 mg/dl 70-105 BUN (test code = BUN) 6 mg/dl 6-17 Creatinine (test code = CREA) 0.5 mg/dl 0.6-1.3 L STAT LAB CBC WITH AUTO [id number] 21:09:00 Test Item Value Reference Range Interpretation Comments WBC (test code = WBC) 11.47 10\\S\\3/ul 4.80-10.80 H RBC (test code = RBC) 4.79 10\\S\\6/ul 4.20-5.40 Hemoglobin (test code = HGB) 13.6 gm/dl 12.0-14.0 Hematocrit (test code = HCT) 41.2 % 37.0-47.0 MCV (test code = MCV) 86.0 fL 81.0-99.0 MCH (test code = MCH) 28.4 pg 27.0-31.0 MCHC (test code = MCHC) 33.0 gm/dl 33.0-37.0 Platelet (test code = PLT) 284 10\\S\\3/ul 130-400 RDW (test code = RDWVC) 12.7 % 11.5-14.5 MPV (test code = MPV) 8.4 fL 7.4-10.4 A NE% (test code = NE) 69.4 % 42.0-75.0 LY% (test code = LY) 23.8 % 13.0-42.0 MO% (test code = MO) 4.9 % 4.0-14.0 EO% (test code = EO) 1.4 % 1.0-3.0 BA% (test code = BA) 0.2 % 1.0-3.0 L IG% (test code = IG%) 0.3 % 0.0-0.4 OVARY W/WO TUBE,[id number] 12:44:00 RUN DATE: 09/04/18 [facility] PAGE 1 RUN TIME: 1454 Specimen Inquiry RUN USER: INTERFACE PATIENT: LAUREN BETH LOC: [facility] #: [id number] AGE/SX: 33/F ROOM: [facility] RE09/02/18REG DR: Elmer Flores : 86 BED: A DIS: 09/03/18 STATUS: DIS [place] TLOC: SPEC #: [id number] RECD: 09/02/18 STATUS: KWAME GARCIA #: [id number] MELISSA: 09/02/18- SUBM DR: Elmer Flores III ENTERED: 09/03/18 SP TYPE: MUSA PELAYO DR: ORDERED: LEVEL IV CODES: [id number] - OVARY, NOS PROCEDURES: LEVEL IV (Incomplete) TISSUES: OVARY, NOS - RIGHT OVARIAN CYST CLINICAL HISTORY 33 year old, acute pelvic pain (wpd) FINAL DIAGNOSIS Right ovarian cyst, excision: - benign simple cyst of ovary Tissue code 1 CPT code(s): 23058 [facility] 09/04/18 GROSS DESCRIPTION ANATOMIC SOURCE OF TISSUE (per Requisition): Right ovarian cyst The specimen is received in a formalin-filledcontainer, labeled with the patient's name and designated "right ovarian cyst". The specimen consists of a 4.0 x 2.0 x 1.5 cm disrupted unilocular cystic structure. The outer surface is pink-white, hyperemic and smooth. The cyst lining is lr-pink and trabeculated. There are no identifiable excrescences. The cut surfaces of the cyst wall displays a thin rim of ovarian stroma with multiple yellow-orange, centrally hemorrhagic corpora lutea. Occupational Health Specialist sections are submitted as Glenn hollis/bere 09/03/18 @ 1343 Signed Amaris Wharton MD 09/04/18 1244 END OF REPORT CBC W/AUTO [id number] 03:10:00 Test Item Value Reference Range Interpretation Comments WHITE BLOOD CELL (test code = WBC) 11.7 K/mm3 6.6-12.1 N RED BLOOD CELL (test code = RBC) 4.35 M/mm3 3.45-5.01 N HEMOGLOBIN (test code = HGB) 12.2 g/dL 10.7-13.9 N HEMATOCRIT (test code = HCT) 38.1 % 32.1-42.1 N MEAN CELL VOLUME (test code = MCV) 88 fL 84.1-94.8 N MEAN CELL HGB (test code = MCH) 28.0 pg 27-35 N MEAN CELL HGB CONCETRATION (test 32.0 gm/dL 32.2-34.1 L code = MCHC) RED CELL DISTRIBUTION WIDTH (test 12.7 % 12.4-16.5 N code = RDW) PLATELET COUNT (test code = PLT) 312 K/mm3 133-385 N IMMATURE PLATELET FRACTION (test 0.0 % 0.0-10.8 N code = IPF) MEAN PLATELET VOLUME (test code = 8.6 fl 9.1-12.7 L MPV) NEUTROPHIL % (test code = NT%) 88.0 % 56.5-79.4 H LYMPHOCYTE % (test code = LY%) 8.7 % 14.3-34.3 L MONOCYTE % (test code = MO%) 2.9 % 5.1-10.4 L EOSINOPHIL % (test code = EO%) 0.0 % 0.1-3.0 L BASOPHIL % (test code = BA%) 0.1 % 0.1-1.0 N NEUTROPHIL # (test code = NT#) 10.3 K/mm3 LYMPHOCYTE # (test code = LY#) 1.0 K/mm3 MONOCYTE # (test code = MO#) 0.3 K/mm3 EOSINOPHIL # (test code = EO#) 0 K/mm3 BASOPHIL # (test code = BA#) 0.0 K/mm3 RBC MORPHOLOGY REQUIRED (test code NORMAL NORMAL = RBCM) PLATELET MORPHOLOGY REQUIRED (test NORMAL NORMAL code = PLTMR) CHEMISTRY 7 [id number] 14:15:00 Test Item Value Reference Range Interpretation Comments SODIUM (test code = NA) 141 mEq/L 135-145 N POTASSIUM (test code = K) 4.1 mEq/L 3.5-5.0 N CHLORIDE (test code = CL) 105 mEq/L 100-115 N CARBON DIOXIDE (test code = CO2) 25 mEq/L 22-31 N ANION GAP (test code = GAP) 15.00 10-20 N GLUCOSE (test code = GLU) 87 mg/dL 65-110 N BLOOD UREA NITROGEN (test code = 13 mg/dL 7-18 N BUN) GLOMERULAR FILTRATION RATE (test 97 ml/min >60 N code = GFR) CREATININE (test code = CREAT) 0.7 mg/dL 0.5-1.0 N CALCIUM (test code = CA) 9.2 mg/dL 8.4-10.2 N CBC W/AUTO [id number] 13:42:00 Test Item Value Reference Range Interpretation Comments WHITE BLOOD CELL (test code = WBC) 8.6 K/mm3 6.6-12.1 N RED BLOOD CELL (test code = RBC) 4.65 M/mm3 3.45-5.01 N HEMOGLOBIN (test code = HGB) 13.1 g/dL 10.7-13.9 N HEMATOCRIT (test code = HCT) 40.0 % 32.1-42.1 N MEAN CELL VOLUME (test code = MCV) 86 fL 84.1-94.8 N MEAN CELL HGB (test code = MCH) 28.2 pg 27-35 N MEAN CELL HGB CONCETRATION (test 32.8 gm/dL 32.2-34.1 N code = MCHC) RED CELL DISTRIBUTION WIDTH (test 12.7 % 12.4-16.5 N code = RDW) PLATELET COUNT (test code = PLT) 345 K/mm3 133-385 N IMMATURE PLATELET FRACTION (test 0.0 % 0.0-10.8 N code = IPF) MEAN PLATELET VOLUME (test code = 8.7 fl 9.1-12.7 L MPV) NEUTROPHIL % (test code = NT%) 66.2 % 56.5-79.4 N LYMPHOCYTE % (test code = LY%) 27.8 % 14.3-34.3 N MONOCYTE % (test code = MO%) 4.7 % 5.1-10.4 L EOSINOPHIL % (test code = EO%) 0.7 % 0.1-3.0 N BASOPHIL % (test code = BA%) 0.3 % 0.1-1.0 N NEUTROPHIL # (test code = NT#) 5.7 K/mm3 LYMPHOCYTE # (test code = LY#) 2.4 K/mm3 MONOCYTE # (test code = MO#) 0.4 K/mm3 EOSINOPHIL # (test code = EO#) 0.06 K/mm3 BASOPHIL # (test code = BA#) 0.0 K/mm3 RBC MORPHOLOGY REQUIRED (test code NORMAL NORMAL = RBCM) PLATELET MORPHOLOGY REQUIRED (test NORMAL NORMAL code = PLTMR) US INTRAVAGINAL [id number] 12:35:09Procedure: Pelvic ultrasound.CLINICAL INDICATION: Pelvic pain. Status post hysterectomy.Order Date:09/01/2018 11:41 AMCOMPARISON: 05/13/2018 and December 24, 2017TECHNIQUE: Transabdominal and endovaginal sonography was performedFINDINGS:Status post hysterectomy.Interval enlargement of the right adnexal/ovarian complex mass with both simplecystic and complex cystic components. Overall lesion measures 10.0x 7.5 cm.There is increased vascularity seen along the internal septations. Complex areademonstratessubtle interval enlargement now measuring 4.3 x 3.8 cm. Findingsare concerning for an ovarian complex neoplasm, both benign and malignantetiologies could have this appearance.Status post left oophorectomy. There is no free fluid.IMPRESSION:Interval enlargement of complex right adnexal/ovarian mass lesion. Differentialconsiderations include both benign and malignant etiologies such as serouscystadenomas or mucinous cystadenomas as well as carcinomas. Gynecologicconsultation is recommended.This final report was electronically signed by Dr Wiley Velázquez MD 09/01/201812:28 PMDictated By: JANET VELÁZQUEZ.Date: 09/01/2018 12:28STAT LAB CBC WITH AUTO [id number] 11:31:00 Test Item Value Reference Range Interpretation Comments WBC (test code = 7.18 10\\S\\3/ul 4.80-10.80 WBC) RBC (test code = 4.78 10\\S\\6/ul 4.20-5.40 RBC) Hemoglobin (test 13.8 gm/dl 12.0-14.0 code = HGB) Hematocrit (test 40.5 % 37.0-47.0 code = HCT) MCV (test code = 84.7 fL 81.0-99.0 MCV) MCH (test code = 28.9 pg 27.0-31.0 MCH) MCHC (test code = 34.1 gm/dl 33.0-37.0 MCHC) Platelet (test code 266 10\\S\\3/ul 130-400 = PLT) RDW (test code = 12.4 % 11.5-14.5 RDWVC) MPV (test code = 9.1 fL 7.4-10.4 A MPV) NE% (test code = NE) 62.9 % 42.0-75.0 LY% (test code = LY) 30.6 % 13.0-42.0 MO% (test code = MO) 5.0 % 4.0-14.0 EO% (test code = EO) 0.8 % 1.0-3.0 L BA% (test code = BA) 0.3 % 1.0-3.0 L IG% (test code = 0.4 % 0.0-0.4 IG%) Platelet Morphology Platelet clumping No previous value (test code = was reported. A PLTMORPH) value of Platel et clumping was entered by [id number] on 09/01/2018 11:31 ONLY AVAILABLE 8A-12MNCT ABDOMEN/PELVIS W/O [id number] 11:11:01MLP C Procedure: CT ABDOMEN/PELVIS W/O CONTRASTOrder Date: 09/01/2018 9:28 AMOrdering Provider: LEANDRA LORENZANAClinical Indication: [id number]: Abdominal pain. Left lower quadrant painComparison: 12/24/2017TECHNIQUE:CT of the abdomen and pelvis WITHOUT intravenous contrast. The abdomen andpelvis were scanned utilizing a multidetector helical scanner from the diaphragmto the lesser trochanter. Coronal and sagittal reformations were obtained.This exam was performed according to the our departmental dose-optimizationprogram which includes automated exposure control, adjustment of the mA and/orkV according to patient size and/or use of iterative reconstruction techniques.DISCUSSION:ABSENCE OF INTRAVENOUS CONTRAST DECREASES SENSITIVITY FOR DETECTION OF FOCALLESIONS AND VASCULAR PATHOLOGY.LOWER THORAX: Normal.HEPATOBILIARY: The gallbladder is surgically absent. No focal hepatic lesion ispresent.SPLEEN: No splenomegaly.PANCREAS: No focal masses or ductal dilatation.ADRENALS: No adrenal nodules.KIDNEYS/URETERS: Mild bilateral hydroureteronephrosis is present.PELVIC ORGANS/BLADDER: Distended appearance of the bladder. The uterus issurgically absent. There is a multicystic appearance of the right ovary with thelargest cystic locule measuring up to 7 cm.PERITONEUM / RETROPERITONEUM: No free air or fluid.LYMPH NODES: No lymphadenopathy.VESSELS: Unremarkable.GI TRACT: No distention or wall thickening. Postoperative changes of a previousgastric sleeves are present.BONES AND SOFT TISSUES: No acute abn ormality.IMPRESSION:No obstructive urolithiasis in the bilateral renal collecting systems. There ishowever mild bilateral hydroureteronephrosis likely from borderline distendedbladder.Nonobstructing stones in bilateral kidneys.Multiloculated appearance of the right ovary. Largest cystic component measuresup to 7 cm. Previously, in May 2018, this cystic component measured up to 5cm. Consider gynecologic consultation if not already performed as this findingmay predispose to adnexal torsion.Previous hysterectomy.This final report was electronically signed by Dr Silver Benitez MD 09/01/201811:04 AMDictated By: GLORY BENITEZKDate: 09/01/2018 11:04STAT LAB CHEM [id number] 10:26:00 Test Item Value Reference Range Interpretation Comments Sodium (test code = NA) 139 mmol/l 138-146 Potassium (test code = K) 4.0 mmol/l 3.5-4.9 Chloride (test code = CL) 105 mmol/l 98-109 IONIZED CALCIUM (test code = ICA) 1.05 CO2 (test code = CO2) 24 mmol/l 24-29 Glucose (test code = GLU) 101 mg/dl 70-105 BUN (test code = BUN) 12 mg/dl 6-17 Creatinine (test code = CREA) 0.4 mg/dl 0.6-1.3 L ONLY AVAILABLE 8A-12MNSTAT LAB URINALYSIS WITHOUT [id number] 09:59:00 Test Item Value Reference Range Interpretation Comments Color (test code = UCOLR) Yellow Lt. Yellow A Clarity (test code = UCLAR) Clear Glucose (test code = UGLUC) NEGATIVE Negative A Bilirubin (test code = UBILI) NEGATIVE Negative A Ketones (test code = UKET) NEGATIVE Negative A Specific [place] (test code = USPGR) 1.015 1.005-1.030 A Blood (test code = UBLD) NEGATIVE Negative A PH (test code = UPH) 7.0 4.5-8.0 A Protein (test code = UPROT) NEGATIVE Negative A Urobilinogen (test code = U UROB) 0.2 >0.2 N Nitrite (test code = UNITR) NEGATIVE Negative A Leukocyte Esterase (test code = NEGATIVE Negative A ULEUK) ONLY AVAILABLE 8A-12MNUS INTRAVAGINAL [id number] 13:26:23Procedure: Pelvic ultrasound.CLINICAL INDICATION: PELVIC PAIN: Pain-Pelvic. Last menstrual period wasunknown. Partial hysterectomy.Order Date: 05/13/2018 11:44 AMCOMPARISON: December 26, 2017TECHNIQUE: Transabdominal and endovaginal sonography was performedFINDINGS:Status post partial hysterectomy.The right ovary is normal in size and echogenicity. No evidence of ovariantorsion. Multiple right-sided ov viviane cysts are noted, largest of whichmeasuring 5.8 cm. Overall findings are stable. No new nodularcomponents orconcerning soft tissue mass.Status post left oophorectomy. There is no free fluid.IMPRESSION:1. Stable appearing multiloculated right ovary with large appearing simplecysts. No new concerning nodular component or solid mass.2. Status post hysterectomy and left oophorectomy.This final report was electronically signed by Dr Wiley Velázquez MD 05/13/20181:20 PMDictated By: WILEY VELÁZQUEZDate: 05/13/2018 13:20STAT LAB CBC WITH AUTO [id number] 12:22:00 Test Item Value Reference Range Interpretation Comments WBC (test code = 5.90 10\\S\\3/ul 4.80-10.80 WBC) RBC (test code = 4.10 10\\S\\6/ul 4.20-5.40 L RBC) Hemoglobin (test 12.0 gm/dl 12.0-14.0 code = HGB) Hematocrit (test 35.6 % 37.0-47.0 L code = HCT) MCV (test code = 86.8 fL 81.0-99.0 MCV) MCH (test code = 29.3 pg 27.0-31.0 MCH) MCHC (test code = 33.7 gm/dl 33.0-37.0 MCHC) Platelet (test code 250 10\\S\\3/ul 130-400 = PLT) RDW (test code = 11.8 % 11.5-14.5 RDWVC) MPV (test code = 8.8 fL 7.4-10.4 A "NOT MEASUR ED" MPV) RESULTS ARE DIS PLAYED WHEN THE INSTRU MENT HAS A SUPPRESSE D OR UNREPORTABLE RE SULT. THIS WILL MOST OFTEN HAPPEN WITH THE MPV WHEN THERE IS A N ABNORMAL PLATEL ET DISTRIBUTION DU E TO A CRITICAL LOW VA LUE OR PLATELET CLUMPI NG. THE RDW MAY BE SUPPRESSED IF T HERE ARE MULTIPLE PE AKS PRESENT ON THE RBC HISTOGRAM. IN THIS CASE, A MANUAL REVIEW OF THE SLIDE WI LL BE PERFORMED, AND RBC MORPHOLOGY WILL BE NOTED ON THE RE PORT. NE% (test code = 57.7 % 42.0-75.0 NE) LY% (test code = 34.6 % 13.0-42.0 LY) MO% (test code = 5.9 % 4.0-14.0 MO) EO% (test code = 1.4 % 1.0-3.0 EO) BA% (test code = 0.2 % 1.0-3.0 L BA) IG% (test code = 0.2 % 0.0-0.4 IG%) STAT LAB CBC WITH AUTO [id number] 11:54:00 Test Item Value Reference Range Interpretation Comments WBC (test code = 5.53 10\\S\\3/ul 4.80-10.80 spoke to pina bradley WBC) ER advd that sp ecimen was clotted. ad vd to redraw and repe at for accurate reults . rls RBC (test code = 4.65 10\\S\\6/ul 4.20-5.40 RBC) Hemoglobin (test 13.6 gm/dl 12.0-14.0 code = HGB) Hematocrit (test 40.5 % 37.0-47.0 code = HCT) MCV (test code = 87.1 fL 81.0-99.0 MCV) MCH (test code = 29.2 pg 27.0-31.0 MCH) MCHC (test code = 33.6 gm/dl 33.0-37.0 MCHC) Platelet (test code 24 10\\S\\3/ul 130-400 LL CALLED T O PINA G/RB/ = PLT) JMF RDW (test code = 12.0 % 11.5-14.5 RDWVC) MPV (test code = 11.1 fL 7.4-10.4 A "NOT MEASUR ED" MPV) RESULTS ARE DIS PLAYED WHEN THE INSTRU MENT HAS A SUPPRESSE D OR UNREPORTABLE RE SULT. THIS WILL MOST OFTEN HAPPEN WITH THE MPV WHEN THERE IS A N ABNORMAL PLATEL ET DISTRIBUTION DU E TO A CRITICAL LOW VA LUE OR PLATELET CLUMPI NG. THE RDW MAY BE SUPPRESSED IF T HERE ARE MULTIPLE PE AKS PRESENT ON THE RBC HISTOGRAM. IN THIS CASE, A MANUAL REVIEW OF THE SLIDE WI LL BE PERFORMED, AND RBC MORPHOLOGY WILL BE NOTED ON THE RE PORT. NE% (test code = 50.5 % 42.0-75.0 NE) LY% (test code = 43.2 % 13.0-42.0 H LY) MO% (test code = 4.7 % 4.0-14.0 MO) EO% (test code = 0.9 % 1.0-3.0 L EO) BA% (test code = 0.2 % 1.0-3.0 L BA) IG% (test code = 0.5 % 0.0-0.4 H IG%) ONLY AVAILABLE [address] [place] [address] LAB URINALYSIS WITHOUT [id number] 11:25:00 Test Item Value Reference Range Interpretation Comments Color (test code = UCOLR) Yellow Lt. Yellow A Clarity (test code = UCLAR) Clear Glucose (test code = UGLUC) NEGATIVE Negative A Bilirubin (test code = UBILI) NEGATIVE Negative A Ketones (test code = UKET) NEGATIVE Negative A Specific [place] (test code = USPGR) 1.020 1.005-1.030 A Blood (test code = UBLD) NEGATIVE Negative A PH (test code = UPH) 7.0 4.5-8.0 A Protein (test code = UPROT) NEGATIVE Negative A Urobilinogen (test code = U UROB) 0.2 >0.2 N Nitrite (test code = UNITR) NEGATIVE Negative A Leukocyte Esterase (test code = NEGATIVE Negative A ULEUK) ONLY AVAILABLE [address] [place], [place] [address]STAT LAB , [id number] 11:25:00 Test Item Value Reference Range Interpretation Comments (Urine) (test code = Negative PREGU) ONLY AVAILABLE [address] [place], [place] [address]STAT LAB CHEM [id number] 11:23:00 Test Item Value Reference Range Interpretation Comments Sodium (test code = NA) 139 mmol/l 138-146 Potassium (test code = K) 4.0 mmol/l 3.5-4.9 Chloride (test code = CL) 105 mmol/l 98-109 Ca2+ (test code = BGCCA2+) 1.12 mmol/l 1.12-1.32 CO2 (test code = CO2) 24 mmol/l 24-29 Glucose (test code = GLU) 101 mg/dl 70-105 BUN (test code = BUN) 8 mg/dl 6-17 Creatinine (test code = CREA) 0.5 mg/dl 0.6-1.3 L ONLY AVAILABLE 8A-12MNUS INTRAVAGINAL [id number] 12:50:53Procedure: Pelvic ultrasound.CLINICAL INDICATION: Right adnexal mass. Status post hysterectomy.OrderDate: 12/24/2017 11:02 AMCOMPARISON: None available.TECHNIQUE: Transabdominal and endovaginal sonography was performedFINDINGS:Status post hysterectomy.Lesion seen on recent CT corresponds to a multicystic right ovary. Multiplefollicles and simple as well as complex cysts are noted with the largestmeasuring 3.6 cm.Left oophorectomy. There is no free fluid.IMPRESSION:1. Abnormality on recent CT corresponds to an enlarged right ovary with multiplesimple as well as slightly complex cysts. Recommend 2-3month followup to ensureresolution and/or stability.This final report was electronically signed by Dr Wiley Velázquez MD 12/24/201712:44 PMDictated By: WILEY VELÁZQUEZDate: 12/24/2017 12:50URINALYSIS WITH [id number] 10:22:00 Test Item Value Reference Range Interpretation Comments Color (test code = UCOLR) Yellow Clarity (test code = UCLAR) Clear Glucose (test code = UGLUC) NEGATIVE NEGATIVE N Bilirubin (test code = UBILI) NEGATIVE NEGATIVE N Ketones (test code = UKET) NEGATIVE NEGATIVE N Specific [place] (test code = USPGR) 1.025 1.005-1.030 A Blood (test code = UBLD) NEGATIVE NEGATIVE N PH (test code = UPH) 6.0 4.5-8.0 A Protein (test code = UPROT) NEGATIVE NEGATIVE N Urobilinogen (test code = U UROB) 0.2 >0.2 N Nitrite (test code = UNITR) NEGATIVE NEGATIVE N Leukocyte Esterase (test code = NEGATIVE NEGATIVE N ULEUK) WBC (test code = WBCUR) 0-5 0-5 N RBC (test code = RBCUR) 0-5 0-5 N Epithial Cells (test code = U EPI) 0-10 0-10 N Bacteria (test code = UBACT) Trace None Seen,Trace N LIPASE, [id number] 10:05:00 Test Item Value Reference Range Interpretation Comments Lipase (test code = LIPA) 40 U/L 8-223 [id number] 10:05:00 Test Item Value Reference Range Interpretation Comments Glucose (test code 129 mg/dl 75-110 H = GLU) BUN (test code = 8.0 mg/dl 6.0-17.0 BUN) Creatinine (test 0.5 mg/dl 0.4-1.2 code = CREA) Sodium (test code = 140 mmol/l 137-145 NA) Potassium (test 3.8 mmol/l 3.5-5.0 code = K) Chloride (test code 110 mmol/l 98-107 H = CL) CO2 (test code = 20 mmol/l 22-30 L CO2) Calcium (test code 8.8 mg/dl 8.4-10.2 = CALC) T Protein (test 6.9 gm/dl 5.1-8.7 code = TP) Albumin (test code 4.0 gm/dl 3.5-4.6 = ALB) A/G Ratio (test 1.4 % 1.1-2.2 code = AGRAT) AST (SGOT) (test 22 U/L 11-36 code = AST) ALT (SGPT) (test 32 U/L 11-40 code = ALT) Alkaline Phos (test 72 U/L 47-114 code = ALKP) Total Bilirubin 0.1 mg/dl 0.2-1.2 L (test code = TBIL) Globulin (test code 2.9 gm/dl 2.3-3.5 = GLOBU) Calcium, Corrected 8.8 mg/dl 8.4-10.2 Various f ormulas exist (test code = for corrected s jeison CALCCORR) calcium results , each yielding differ ent values. This corrected resul t was based on the fo rmula: Corrected Calci um = SerumCalcium + [0.8 * ( 4 - SerumAlbu min)] EGFR if >60 Turkish (test code mL/min/1.73m\\ = EGFRAA) S\\2 EGFR if Non- >60 Estimate d Glomerular [place] (test code mL/min/1.73m\\ Filtrat ion Rate (eGFR) = EGFRNA) S\\2 Reference Inter vals Decision Points for 18 years and older and average body ma ss: >= 60 Does not exc lude kidney disease. 30 - 59 Suggests modera te chronic kidney disease and indicat es the need for furthe r investigation including asses sment of proteinuria and cardiovascular factors. < 30 Usually in dicates a need for refe rral for assessment and management of c hronic kidney failure. CT ABD/ PELVIS W/O CON (RENAL STONE)2017-12-24 09:38:31Procedure: CT ABD/ PELVIS W/O CON (RENAL STONE)Order date: 12/24/2017 8:36 AMOrdering Provider: QUINTIN LCUASlinical Indication: ABD PAIN: Pain- Abdominalbilateral flank pain worse left, also LLQ painComparison: CT abdomen and pelvis June 21, 2017 and multiple prior exams.TECHNIQUE: Using a helical scanner, sequential axial imaging of the abdomen andpelvis was obtained without the administrationof intravenous or oral contrast.The exam was obtained from the superior aspect of each kidney through the pubicsymphysis. 2-D sagittal and coronal reconstructions were obtained.This exam was performed according to the our departmental dose- optimizationprogram which includes automated exposure control,adjustment of the mA and/orkV according to patient size and/or use of iterative reconstruction techniques.Findings:The right kidney is normal in size and shape.Multiple nonobstructing calculi are noted, largest of which measures 4 mm. Thereare no masses.There is no hydronephrosis.The left kidney is normal in size and shape.Solitary 2 mm calculus in the lower pole nonobstructive. There are no masses.There is no hydronephrosis.The urinary bladder has a normal appearance.There are no inflammatory changes in the abdomen or pelvis.Seen within the right adnexa, there is a complex both low-density andhigh-density lesion measuring 4.2 x 6.5 cm. This is favored to be the rightovary and may represent multiple follicles, however is nonspecific. Pelvicsonography is recommended for further evaluation.Remaining solid abdominal viscera are unremarkable. Status post hysterectomy. Noevidence of bowel obstruction. No mesenteric or retroperitoneal masses.Status post gastric sleeve procedure and cholecystectomy. Status postappendectomy.Osseous elements are unremarkable.Impression:1. Multiple bilateral nonobstructing renal calculi hydronephrosis or masslesion.2. Slight interval enlargement of right adnexal solid and cystic mass lesionseen favored to be of ovarian origin. Pelvic sonography is recommended.3. Post surgical changes as above.This final report was electronically signed by Dr Wiley Velázquez MD 12/24/20179:32 AMDictated By: WILEY VELÁZQUEZDate: 12/24/2017 09:38CB WITH AUTO [id number] 09:26:00 Test Item Value Reference Range Interpretation Comments WBC (test code = 7.14 10\\S\\3/ul 4.80-10.80 WBC) RBC (test code = 4.48 10\\S\\6/ul 4.20-5.40 RBC) Hemoglobin (test 12.7 gm/dl 12.0-14.0 code = HGB) Hematocrit (test 38.1 % 37.0-47.0 code = HCT) MCV (test code = 85.0 fL 81.0-99.0 MCV) MCH (test code = 28.3 pg 27.0-31.0 MCH) MCHC (test code = 33.3 gm/dl 33.0-37.0 MCHC) RDW (test code = 12.3 % 11.5-14.5 RDWVC) Platelet (test code 276 10\\S\\3/ul 130-400 = PLT) MPV (test code = 8.9 fL 7.4-10.4 A "NOT MEASUR ED" MPV) RESULTS ARE DIS PLAYED WHEN THE INSTRU MENT HAS A SUPPRESSE D OR UNREPORTABLE RE SULT. THIS WILL MOST OFTEN HAPPEN WITH THE MPV WHEN THERE IS A N ABNORMAL PLATEL ET DISTRIBUTION DU E TO A CRITICAL LOW VA LUE OR PLATELET CLUMPI NG. THE RDW MAY BE SUPPRESSED IF T HERE ARE MULTIPLE PE AKS PRESENT ON THE RBC HISTOGRAM. IN THIS CASE, A MANUAL REVIEW OF THE SLIDE WI LL BE PERFORMED, AND RBC MORPHOLOGY WILL BE NOTED ON THE RE PORT. NE% (test code = 62.4 % 42.0-75.0 NE) LY% (test code = 30.1 % 13.0-42.0 LY) MO% (test code = 5.2 % 4.0-14.0 MO) EO% (test code = 1.1 % 1.0-3.0 EO) BA% (test code = 0.6 % 1.0-3.0 L BA) IG% (test code = 0.6 % 0.0-0.4 H IG%) AUTO DIFFCT ABD/ PELVIS W/O CON (RENAL STONE)2017-06-21 03:20:09er 16EXAM:CT Abdomen and Pelvis Without Intravenous ContrastCLINICAL HISTORY:31 years old, female; Pain; Abdominal pain; Flank; Right; Prior surgery;Additional info: Rt flank pain, HX of stonesTECHNIQUE:Axial computed tomography images of the abdomen and pelvis withoutintravenous contrast. All CT scans atthis facility use one or more dosereduction techniques, viz.: automated exposure control; ma/kV adjustment perpatient size (including targeted exams where dose is matched to indication;i.e. head); or iterative reconstruction technique.COMPARISON:CT ABDOMEN/PELVIS W/CONTRAST 2016-07-31 14:25FINDINGS:Lower thorax: No acute findings.ABDOMEN:Liver: Hepatic steatosis.Gallbladder and bile ducts: Status post cholecystectomy. No ductal dilation.Pancreas: Unremarkable. No ductal dilation.Spleen: Unremarkable. No splenomegaly.Adrenals: Unremarkable. No mass.Kidneys and ureters: 3 mm calculus in theright UVJ without righthydroureter nephrosis.Stomach and bowel: Status post gastric sleeve procedure. No obstruction.No mucosal thickening.Appendix: No findings to suggest acute appendicitis.PELVIS:Bladder: Unremarkable. No stones.Reproductive: Status post hysterectomy.ABDOMEN and PELVIS:Intraper itoneal space: Unremarkable. No free air. No significant fluidcollection.Bones/joints: No acute fracture. No dislocation.Soft tissues: Unremarkable.Vasculature: Unremarkable. No abdominal aortic aneurysm.Lymph nodes: Unremarkable. No enlarged lymph nodes.IMPRESSION:3 mm calculus in the rightUVJ without right hydroureter nephrosis.This Final report was electronically signed by Marvin Dobbs MD on 3:19 AM CDT.Dictated By: MARVIN DOBBSDate: 06/21/2017 03:20URINALYSIS WITH [id number] 03:20:00 Test Item Value Reference Range Interpretation Comments Color (test code = UCOLR) YELLOW Clarity (test code = UCLAR) CLEAR Glucose (test code = UGLUC) NEGATIVE NEGATIVE N Bilirubin (test code = UBILI) NEGATIVE NEGATIVE N Ketones (test code = UKET) NEGATIVE NEGATIVE N Specific [place] (test code = 1.020 1.005-1.030 A USPGR) Blood (test code = UBLD) LARGE NEGATIVE A PH (test code = UPH) 6.0 4.5-8.0 A Protein (test code = UPROT) NEGATIVE NEGATIVE N Urobilinogen (test code = U UROB) 0.2 >0.2 N Nitrite (test code = UNITR) NEGATIVE NEGATIVE N Leukocyte Esterase (test code = NEGATIVE NEGATIVE N ULEUK) WBC (test code = WBCUR) None Seen 0-5 A RBC (test code = RBCUR) 50-60 0-5 A Epithial Cells (test code = U EPI) None Seen 0-10 A Mucous (test code = UMUC) None Seen None Seen N Bacteria (test code = UBACT) None Seen None Seen,Trace N er [id number] 03:07:00 Test Item Value Reference Range Interpretation Comments Glucose (test code 96 mg/dl 75-110 = GLU) BUN (test code = 11.0 mg/dl 6.0-17.0 BUN) Creatinine (test 0.6 mg/dl 0.4-1.2 code = CREA) Sodium (test code = 142 mmol/l 137-145 NA) Potassium (test 3.6 mmol/l 3.5-5.0 code = K) Chloride (test code 108 mmol/l 98-107 H = CL) CO2 (test code = 23 mmol/l 22-30 CO2) Calcium (test code 9.1 mg/dl 8.4-10.2 = CALC) T Protein (test 6.7 gm/dl 5.1-8.7 code = TP) Albumin (test code 4.1 gm/dl 3.5-4.6 = ALB) A/G Ratio (test 1.6 % 1.1-2.2 code = AGRAT) AST (SGOT) (test 22 U/L 11-36 code = AST) ALT (SGPT) (test 48 U/L 11-40 H code = ALT) Alkaline Phos (test 78 U/L 47-114 code = ALKP) Total Bilirubin 0.3 mg/dl 0.2-1.2 (test code = TBIL) Globulin (test code 2.6 gm/dl 2.3-3.5 = GLOBU) Calcium, Corrected 9.0 mg/dl 8.4-10.2 Various f ormulas exist (test code = for corrected s jeison CALCCORR) calcium results , each yielding differ ent values. This corrected resul t was based on the fo rmula: Corrected Calci um = SerumCalcium + [0.8 * ( 4 - SerumAlbu min)] EGFR if >60 Turkish (test code mL/min/1.73m\\ = EGFRAA) S\\2 EGFR if Non- >60 Estimate d Glomerular Turkish (test code mL/min/1.73m\\ Filtrat ion Rate (eGFR) = EGFRNA) S\\2 Reference Inter vals Decision Points for 18 years and older and average body ma ss: >= 60 Does not exc lude kidney disease. 30 - 59 Suggests modera te chronic kidney disease and indicat es the need for furthe r investigation including asses sment of proteinuria and cardiovascular factors. < 30 Usually in dicates a need for refe rral for assessment and management of c hronic kidney failure. er 16LIPASE, [id number] 03:07:00 Test Item Value Reference Range Interpretation Comments Lipase (test code = LIPA) 61 U/L 8-223 er 16CBC WITH AUTO [id number] 03:05:00 Test Item Value Reference Range Interpretation Comments WBC (test code = 9.83 10\\S\\3/ul 4.80-10.80 WBC) RBC (test code = 4.05 10\\S\\6/ul 4.20-5.40 L RBC) Hemoglobin (test 11.8 gm/dl 12.0-14.0 L code = HGB) Hematocrit (test 35.0 % 37.0-47.0 L code = HCT) MCV (test code = 86.4 fL 81.0-99.0 MCV) MCH (test code = 29.1 pg 27.0-31.0 MCH) MCHC (test code = 33.7 gm/dl 33.0-37.0 MCHC) RDW (test code = 13.2 % 11.5-14.5 RDWVC) Platelet (test code 226 10\\S\\3/ul 130-400 = PLT) MPV (test code = 9.4 fL 7.4-10.4 A "NOT MEASUR ED" MPV) RESULTS ARE DIS PLAYED WHEN THE INSTRU MENT HAS A SUPPRESSE D OR UNREPORTABLE RE SULT. THIS WILL MOST OFTEN HAPPEN WITH THE MPV WHEN THERE IS A N ABNORMAL PLATEL ET DISTRIBUTION DU E TO A CRITICAL LOW VA LUE OR PLATELET CLUMPI NG. THE RDW MAY BE SUPPRESSED IF T HERE ARE MULTIPLE PE AKS PRESENT ON THE RBC HISTOGRAM. IN THIS CASE, A MANUAL REVIEW OF THE SLIDE WI LL BE PERFORMED, AND RBC MORPHOLOGY WILL BE NOTED ON THE RE PORT. NE% (test code = 62.0 % 42.0-75.0 NE) LY% (test code = 30.9 % 13.0-42.0 LY) MO% (test code = 5.1 % 4.0-14.0 MO) EO% (test code = 1.2 % 1.0-3.0 EO) BA% (test code = 0.4 % 1.0-3.0 L BA) IG% (test code = 0.4 % 0.0-0.4 IG%) er 16XR CHEST 2 PA [id number] 19:56:04Procedure: XR CHEST 2 PA LATERALExam date: 05/13/2017 3:53 PMOrdering Provider: DR ASA Espan[place] inical Indication: fatigue, Chest painComparison: March 15, 2016Findings:Cardiomediastinal silhouette is within normal limits.The lungs are clear.No pleural effusion or pneumothorax. Osseous structures are nonacute.No evidence of active tuberculosis.Impression:No acute cardiopulmonary process.This final report was electronically signed by Dr Wiley Velázquez MD 05/13/20177:49 PMDictated By: WILEY VELÁZQUEZDate: 05/13/2017 19:[id number] 16:53:00 Test Item Value Reference Range Interpretation Comments Glucose (test code 88 mg/dl 75-110 = GLU) BUN (test code = 12.0 mg/dl 6.0-17.0 BUN) Creatinine (test 0.7 mg/dl 0.4-1.2 code = CREA) Sodium (test code = 142 mmol/l 137-145 NA) Potassium (test 3.9 mmol/l 3.5-5.0 code = K) Chloride (test code 103 mmol/l 98-107 = CL) CO2 (test code = 25 mmol/l 22-30 CO2) Calcium (test code 9.6 mg/dl 8.4-10.2 = CALC) T Protein (test 7.6 gm/dl 5.1-8.7 code = TP) Albumin (test code 4.4 gm/dl 3.5-4.6 = ALB) A/G Ratio (test 1.4 % 1.1-2.2 code = AGRAT) AST (SGOT) (test 20 U/L 11-36 code = AST) ALT (SGPT) (test 30 U/L 11-40 code = ALT) Alkaline Phos (test 89 U/L 47-114 code = ALKP) Total Bilirubin 0.4 mg/dl 0.2-1.2 (test code = TBIL) Globulin (test code 3.2 gm/dl 2.3-3.5 = GLOBU) Calcium, Corrected 9.3 mg/dl 8.4-10.2 Various f ormulas exist (test code = for corrected s jeison CALCCORR) calcium results , each yielding differ ent values. This corrected resul t was based on the fo rmula: Corrected Calci um = SerumCalcium + [0.8 * ( 4 - SerumAlbu min)] EGFR if >60 Turkish (test code mL/min/1.73m\\ = EGFRAA) S\\2 EGFR if Non- >60 Estimate d Glomerular Turkish (test code mL/min/1.73m\\ Filtrat ion Rate (eGFR) = EGFRNA) S\\2 Reference Inter vals Decision Points for 18 years and older and average body ma ss: >= 60 Does not exc lude kidney disease. 30 - 59 Suggests modera te chronic kidney disease and indicat es the need for furthe r investigation including asses sment of proteinuria and cardiovascular factors. < 30 Usually in dicates a need for refe rral for assessment and management of c hronic kidney failure. CBC (HEMOGRAM ONLY)2017-05-13 16:32:00 Test Item Value Reference Range Interpretation Comments WBC (test code = 10.10 4.80-10.80 WBC) 10\\S\\3/ul RBC (test code = 4.47 10\\S\\6/ul 4.20-5.40 RBC) Hemoglobin (test 13.3 gm/dl 12.0-14.0 code = HGB) Hematocrit (test 39.1 % 37.0-47.0 code = HCT) MCV (test code = 87.5 fL 81.0-99.0 MCV) MCH (test code = 29.8 pg 27.0-31.0 MCH) MCHC (test code = 34.0 gm/dl 33.0-37.0 MCHC) RDW (test code = 13.0 % 11.5-14.5 RDWVC) Platelet (test code 300 10\\S\\3/ul 130-400 = PLT) MPV (test code = 8.9 fL 7.4-10.4 A "NOT MEASUR ED" MPV) RESULTS ARE DIS PLAYED WHEN THE INSTRU MENT HAS A SUPPRESSE D OR UNREPORTABLE RE SULT. THIS WILL MOST OFTEN HAPPEN WITH THE MPV WHEN THERE IS A N ABNORMAL PLATEL ET DISTRIBUTION DU E TO A CRITICAL LOW VA LUE OR PLATELET CLUMPI NG. THE RDW MAY BE SUPPRESSED IF T HERE ARE MULTIPLE PE AKS PRESENT ON THE RBC HISTOGRAM. IN THIS CASE, A MANUAL REVIEW OF THE SLIDE WI LL BE PERFORMED, AND RBC MORPHOLOGY WILL BE NOTED ON THE RE PORT. URINALYSIS WITH [id number] 18:25:00 Test Item Value Reference Range Interpretation Comments Color (test code = UCOLR) YELLOW Clarity (test code = UCLAR) CLEAR Glucose (test code = UGLUC) NEGATIVE NEGATIVE N Bilirubin (test code = UBILI) NEGATIVE NEGATIVE N Ketones (test code = UKET) NEGATIVE NEGATIVE N Specific [place] (test code = 1.025 1.005-1.030 A USPGR) Blood (test code = UBLD) NEGATIVE NEGATIVE N PH (test code = UPH) 6.0 4.5-8.0 A Protein (test code = UPROT) NEGATIVE NEGATIVE N Urobilinogen (test code = U UROB) 0.2 >0.2 N Nitrite (test code = UNITR) NEGATIVE NEGATIVE N Leukocyte Esterase (test code = NEGATIVE NEGATIVE N ULEUK) WBC (test code = WBCUR) 0-5 0-5 N RBC (test code = RBCUR) None Seen 0-5 A Epithial Cells (test code = U EPI) 0-5 0-10 A Mucous (test code = UMUC) None Seen None Seen N Bacteria (test code = UBACT) Trace None Seen,Trace N Crystals Urine (test code = URCRYS) None Seen None Seen N Urine Casts (test code = UR CAST) None Seen None Seen N Urine Misc (test code = UR MISC) None Seen None Seen N HEPATIC FUNCTION PANEL (LIVER)2016-10-09 18:21:00 Test Item Value Reference Range Interpretation Comments T Protein (test code = TP) 8.1 gm/dl 5.1-8.7 Albumin (test code = ALB) 4.6 gm/dl 3.5-4.6 AST (SGOT) (test code = AST) 25 U/L 11-36 ALT (SGPT) (test code = ALT) 34 U/L 11-40 Alkaline Phos (test code = ALKP) 98 U/L 47-114 Total Bilirubin (test code = TBIL) 0.5 mg/dl 0.2-1.2 Direct Bilirubin (test code = DBIL) 0.4 mg/dl 0.0-0.3 H Indirect Bilirubin (test code = 0.1 mg/dl 0.0-1.1 IBIL) [id number] 18:21:00 Test Item Value Reference Range Interpretation Comments Glucose (test code 90 mg/dl 75-110 = GLU) BUN (test code = 15.0 mg/dl 6.0-17.0 BUN) Creatinine (test 0.5 mg/dl 0.4-1.2 code = CREA) Sodium (test code = 142 mmol/l 137-145 NA) Potassium (test 3.8 mmol/l 3.5-5.0 code = K) Chloride (test code 104 mmol/l 98-107 = CL) CO2 (test code = 22 mmol/l 22-30 CO2) Calcium (test code 9.6 mg/dl 8.4-10.2 = CALC) EGFR if >60 Turkish (test code mL/min/1.73m\\ = EGFRAA) S\\2 EGFR if Non- >60 Estimate d Glomerular Turkish (test code mL/min/1.73m\\ Filtrat ion Rate (eGFR) = EGFRNA) S\\2 Reference Inter vals Decision Points for 18 years and older and average body ma ss: >= 60 Does not exc lude kidney disease. 30 - 59 Suggests modera te chronic kidney disease and indicat es the need for furthe r investigation including asses sment of proteinuria and cardiovascular factors. < 30 Usually in dicates a need for refe rral for assessment and management of c hronic kidney failure. CBC WITH AUTO [id number] 18:04:00 Test Item Value Reference Range Interpretation Comments WBC (test code = WBC) 18.0 k/ul 4.8-10.8 H RBC (test code = RBC) 4.94 Millions/ul 4.20-5.40 Hemoglobin (test code = HGB) 14.1 gm/dl 12.0-14.0 H Hematocrit (test code = HCT) 42.7 % 37.0-47.0 MCV (test code = MCV) 86.4 fL 81.0-99.0 MCH (test code = MCH) 28.6 pg 27.0-31.0 MCHC (test code = MCHC) 33.1 gm/dl 33.0-37.0 RDW (test code = RDWVC) 13.9 % 11.5-14.5 Platelet (test code = PLT) 381 10\\S\\3/ul 130-400 MPV (test code = MPV) 7.0 fL 7.4-10.4 L NE% (test code = NE) 78.6 % 42.0-75.0 H LY% (test code = LY) 16.3 % 13.0-42.0 MO% (test code = MO) 4.3 % 4.0-14.0 EO% (test code = EO) 0.1 % 1.0-3.0 L BA% (test code = BA) 0.7 % 1.0-3.0 L NRBC, Auto (test code = 0 NRBC_AUTO) AUTO DIFF
[2021-12-25] MEDS ORDERED: ONDANSETRON 4 MG (ODT) TAB ONE (23:50)
[2021-12-26] MEDS ORDERED: NA CHLORIDE 0.9% 1,000 ML ONE (00:21)
[2021-12-26] MEDS ORDERED: ONDANSETRON 4 MG/2 ML VIAL ONE (00:21)
[2021-12-26] MEDS ORDERED: MORPHINE 4 MG/ML SYR ONE ×2 (00:21→01:51)
--- NOTE | 2021-12-26 02:12 | EDPHYS ---
Physician Documentation [facility] Name: Hong Pace Age: 36 yrs Sex: Female : 1985 Arrival Date: 12/25/2021 Time: 23:29 Bed 15 Private MD: ED Physician Bao Castillo HPI: 12/26 01:26 This 36 yrs old Female presents to ER via Ambulatory with complaints of Numbness Of kb Hand, Shoulder Pain. 01:26 The patient or guardian complains of decreased range of motion, pain, that is acute, kb tenderness. right shoulder. Context: The problem was sustained at home, resulted from threw a ball and felt a pop, then daughter pulled arm and the pain got worse, The patient experiences decreased range of motion, when attempts to raise arm, The patient reports no obvious deformity. Onset: The symptoms/episode began/occurred just prior to arrival. Modifying factors: the symptoms are alleviated by nothing. The symptoms are aggravated by movement. Associated signs and symptoms: Pertinent positives: severe pain. Severity of symptoms: At their worst the symptoms were moderate, severe, in the emergency department the symptoms are unchanged. Treatment prior to arrival includes: no previous treatment. The patient has not experienced similar symptoms in the past. The patient has not recently seen a physician. Pt reports she was playing keep away with her children, threw the ball and felt a pop in right shoulder. Daughter pulled on arm at the same time and the pain has been severe since then. Reports she is unable to move right shoulder without pain. 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 - Social history:: Smoking status: unknown. ROS: 12/26 01:25 Constitutional: Negative for fever, chills, and weight loss. kb MS/extremity: Positive for decreased range of motion, pain, tenderness, of the anterior aspect of right shoulder and posterior aspect of right shoulder. All other systems are negative. Exam: 01:25 Constitutional: This is a well developed, well nourished patient who is awake, alert, kb and in no acute distress. Head/Face: Normocephalic, atraumatic. ENT: Moist Mucous membranes Respiratory: Respirations even and unlabored. No increased work of breathing. Talking in full sentences Skin: Warm, dry with normal turgor. Normal color. Neuro: Awake and alert, GCS 15, oriented to person, place, time, and situation. Moves all extremities. Normal gait. Psych: Awake, alert, with orientation to person, place and time. Behavior, mood, and affect are within normal limits. 01:25 Musculoskeletal/extremity: Extremities: grossly normal except: noted in the posterior aspect of right shoulder and anterior aspect of right shoulder: decreased ROM, pain, tenderness, ROM: limited active range of motion, in the posterior aspect of right shoulder and anterior aspect of right shoulder, limited active range of motion due to pain, in the posterior aspect of right shoulder and anterior aspect of right shoulder, Circulation is intact in all extremities. Sensation intact. Vital Signs: 12/25 23:39 BP 139 / 91; Pulse 146; Resp 24; Temp 98.4(TE); Pulse Ox 100% on R/A; Weight 104.33 kg; kd3 Height 5 ft. 4 in. (162.56 cm); Pain 10/10; 12/26 01:47 BP 135 / 92; Pulse 94; Resp 17; Pulse Ox 100% on R/A; Pain 10/10; ke1 02:59 BP 140 / 91; Pulse 86; Resp 17; Pulse Ox 100% on R/A; ke1 12/25 23:39 Body Mass Index 39.48 (104.33 kg, 162.56 cm) kd3 MDM: 12/25 23:43 Patient medically screened. kb 12/26 01:25 Data reviewed: vital signs, nurses notes. Data interpreted: Pulse oximetry: on room air kb is 100 %. Interpretation: normal. 02:10 Counseling: I had a detailed discussion with the patient and/or guardian regarding: the kb historical points, exam findings, and any diagnostic results supporting the discharge/admit diagnosis, radiology results, the need for outpatient follow up, a orthopedic surgeon, to return to the emergency department if symptoms worsen or persist or if there are any questions or concerns that arise at home. 12/25 23:41 Order name: XRAY Shoulder RIGHT 2 view sm5 12/26 00:12 Order name: IV Start; Complete Time: 00:59 kb 12/26 02:07 Order name: Sling; Complete Time: 02:58 kb Administered Medications: 12/25 23:44 Drug: Ondansetron 4 mg Route: PO; ke1 12/26 00:00 Follow up: Response: No change in condition; Nausea unchanged ke1 00:58 Drug: Zofran (Ondansetron) 4 mg Route: IVP; Site: right hand; ke1 01:30 Follow up: Response: Nausea is decreased ke1 00:58 Drug: morphine 4 mg Route: IVP; Infused Over: 4 mins; Site: right hand; ke1 01:30 Follow up: Response: No change in condition ke1 00:58 Drug: NS 0.9% 1000 ml Route: IV; Rate: 1000 ml; Site: right hand; ke1 02:00 Follow up: IV Status: Completed infusion ke1 01:47 Drug: morphine 4 mg Route: IVP; Infused Over: 4 mins; Site: right hand; ke1 02:05 Follow up: Response: No change in condition ke1 02:35 Drug: [place] (HYDROcodone-acetaminophen) 10 mg-325 mg 1 tabs Route: PO; ke1 03:00 Follow up: Response: Marked relief of symptoms ke1 02:35 Drug: fentaNYL (PF) 50 mcg Route: IVP; Site: right hand; ke1 02:59 Follow up: Response: Marked relief of symptoms ke1 Disposition: 19:13 Co-signature as Attending Physician, Bao Castillo MD I agree with the assessment and kdr plan of care. Disposition Summary: 12/26/21 02:11 Discharge Ordered Location: Home kb Condition: Stable kb Diagnosis - Strain of other muscles, fascia and tendons at shoulder and upper arm level, right kb arm Followup: kb - With: Emergency Department - When: As needed - Reason: Worsening of condition Followup: kb - With: Private Physician - When: 2 - 3 days - Reason: Recheck today's complaints, Continuance of care, Re-evaluation by your physician Discharge Instructions: - Discharge Summary Sheet kb - Musculoskeletal Pain kb Forms: - Medication Reconciliation Form kb - Thank You Letter kb - Antibiotic Education kb - Prescription Opioid Use kb Prescriptions: - Cyclobenzaprine 10 mg Oral Tablet - take 1 tablet by ORAL route every 8 hours As needed; 15 tablet; Refills: 0, kb Product Selection Permitted Signatures: Dispatcher [employer] EDTrinity Be, Bao Bryan MD MD kdr Doucette, Kyli RN RN kd3 Joni Ritchie RN RN ke1
--- NOTE | 2021-12-26 02:12 | ER ---
Nurse's Notes [facility] [place] Name: Hong Pace Age: 36 yrs Sex: Female : 1985 Arrival Date: 12/25/2021 Time: 23:29 Bed 15 Private MD: Diagnosis: Strain of other muscles, fascia and tendons at shoulder and upper arm level, right arm Presentation: 12/25 23:39 Chief complaint: Patient states: i was playing keep away with my kids and [facility] and my daughter grabbed the ball and pushed my arm back and i hear a pop in my shoulder and it hurt so bad that im nauseous and throwing up now. Coronavirus screen: Vaccine status: Patient reports being unvaccinated. Ebola Screen: No symptoms or risks identified at this time. Initial Sepsis Screen: Does the patient meet any 2 criteria? No. Patient's initial sepsis screen is negative. Does the patient have a suspected source of infection? No. Patient's initial sepsis screen is negative. Risk Assessment: Do you want to hurt yourself or someone else? Patient reports no desire to harm self or others. Onset of symptoms was December 25, 2021. 23:39 Method Of Arrival: Ambulatory kd3 23:39 Acuity: [place] 3 kd3 Triage Assessment: 23:41 General: Appears uncomfortable, Behavior is calm, cooperative. Pain: Complains of pain kd3 in anterior aspect of right shoulder, right bicep, posterior aspect of right shoulder and right tricep. Neuro: Level of Consciousness is awake, alert, obeys commands, Oriented to person, place, time, situation. Respiratory: Airway is patent Trachea midline Respiratory effort is even, unlabored, Respiratory pattern is regular, symmetrical. 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 - Social history:: Smoking status: unknown. Screenin:43 Abuse screen: Denies threats or abuse. Denies injuries from another. Nutritional kd3 screening: No deficits noted. Tuberculosis screening: No symptoms or risk factors identified. Fall Risk None identified. Assessment: 23:57 General: Appears uncomfortable, Behavior is appropriate for age. GI: Reports nausea. ke1 12/26 00:45 GI: Reports nausea. ke1 Vital Signs: 12/25 23:39 BP 139 / 91; Pulse 146; Resp 24; Temp 98.4(TE); Pulse Ox 100% on R/A; Weight 104.33 kg; kd3 Height 5 ft. 4 in. (162.56 cm); Pain 10/10; 12/26 01:47 BP 135 / 92; Pulse 94; Resp 17; Pulse Ox 100% on R/A; Pain 10/10; ke1 02:59 BP 140 / 91; Pulse 86; Resp 17; Pulse Ox 100% on R/A; ke1 12/25 23:39 Body Mass Index 39.48 (104.33 kg, 162.56 cm) kd3 ED Course: 12/25 23:29 Patient arrived in ED. ja2 23:35 Joni Ritchie, [place] is Primary Nurse. ke1 23:41 Triage completed. kd3 23:42 Arm band placed on left wrist. kd3 23:43 Trinity Houser FNP-C is PHCP. kb 23:43 Bao Castillo MD is Attending Physician. kb 23:43 Patient has correct armband on for positive identification. kd3 12/26 00:09 XRAY Shoulder RIGHT 2 view In Process Unspecified. EDMS 00:20 Missed attempt(s): 22 gauge in right antecubital area. ke1 00:30 Missed attempt(s): 22 gauge in right forearm. ke1 00:57 Inserted saline lock: 22 gauge in right hand, using aseptic technique. By Marsha LEGER. ke1 02:58 No provider procedures requiring assistance completed. IV discontinued. ke1 Administered Medications: 12/25 23:44 Drug: Ondansetron 4 mg Route: PO; ke1 12/26 00:00 Follow up: Response: No change in condition; Nausea unchanged ke1 00:58 Drug: Zofran (Ondansetron) 4 mg Route: IVP; Site: right hand; ke1 01:30 Follow up: Response: Nausea is decreased ke1 00:58 Drug: morphine 4 mg Route: IVP; Infused Over: 4 mins; Site: right hand; ke1 01:30 Follow up: Response: No change in condition ke1 00:58 Drug: NS 0.9% 1000 ml Route: IV; Rate: 1000 ml; Site: right hand; ke1 02:00 Follow up: IV Status: Completed infusion ke1 01:47 Drug: morphine 4 mg Route: IVP; Infused Over: 4 mins; Site: right hand; ke1 02:05 Follow up: Response: No change in condition ke1 02:35 Drug: [place] (HYDROcodone-acetaminophen) 10 mg-325 mg 1 tabs Route: PO; ke1 03:00 Follow up: Response: Marked relief of symptoms ke1 02:35 Drug: fentaNYL (PF) 50 mcg Route: IVP; Site: right hand; ke1 02:59 Follow up: Response: Marked relief of symptoms ke1 Medication: 02:59 VIS not applicable for this client. ke1 Outcome: 02:11 Discharge ordered by . kb 02:58 Discharged to home ambulatory. ke1 02:58 Condition: good 02:58 Discharge instructions given to patient. 03:01 Patient left the ED. ke1 Signatures: Dispatcher [employer] EDTrinity Be, YESSYC COLD MILL SUPERVISOR-Leslie Boo Kyli RN RN kd3 Joni Ritchie RN RN ke1
[2021-12-26] MEDS ORDERED: HYDROCODONE/APAP 10/325 TAB ONE (02:26)
[2021-12-26] MEDS ORDERED: FENTANYL CITR 100 MCG/2 ML ONE (02:27)
[2021-12-26 03:59] VITALS: TEMP 98.4; O2SAT 100
[2021-12-26 04:04] VITALS: BP 140/91
--- NOTE | 2021-12-26 16:06 | RAD REPORT ---
EXAM DESCRIPTION: Shoulder Right 2 View - 12/26/2021 12:05 am CLINICAL HISTORY: PAIN Shoulder Right 2 View. COMPARISON: None. TECHNIQUE: Two views of the right shoulder were obtained: AP internal and external rotation radiogra phs. FINDINGS: No acute fracture identified. Glenohumeral joint alignment is maintained. No acromioclavic ular joint widening. IMPRESSION: No acute osseous abnormality identified. Electronically signed by: Ninfa Hester MD 12/26/2021 12:20 AM CDT Due to temporary technical issues with the PACS/Fluency reporting system, reports are being signed by the in house radiologists without. review as a courtesy to insure prompt reporting. The interpreting radiologist is fully responsible for the content of the report
== END 2021-12-26 03:01 | disposition home or self-care (01) ==
LOC: ER 23:25
DX: S46.811A Strain of other muscles, fascia and tendons at shoulder and upper arm level, right arm, initial encounter (principal); Z88.5 Allergy status to narcotic agent; Z88.6 Allergy status to analgesic agent
CPT/HCPCS: J2405; J3010; J7030; Q0162

== ENCOUNTER 2022-01-20 00:04 | Emergency (ER) | payer SELFPAY ==
--- OUTSIDE RECORDS SUMMARY | 2022-01-20 00:06 | XMS REPORT | Clinical Summary ---
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 Allergies Active Allergy Reactions Severity Noted [...] melan nu of skin (Primary Dx) after 01/20/2021 Immunizations Name Administration Dates Next Due Influenza [...] OVARIAN CYST SURGERY 08/29/2018 - Right 09/28/2018 VA EXC SKIN MALIG 0.6-1 CM 09/23/2018 Abdomen/Right Proce dure: EXCISION OF TRUNK,ARM,LEG MALIGNANT LESION OF TRUNK, right epi gastric; Surgeon: Nicoalsa Valentine MD; Location: [facility] OR; Service: SURG ON C - MELANOMA [...] Visit Dermatology Lisbeth Shannon M D [address] [place], [place] [address] (Wo rk) Health Maintenance Due Date Last Done Comments COVID-19 Vaccination (#1) 01/11/1987 Results Not on fileafter 01/20/2021 Advance Directives Code Status Date Activated Date Inactivated Comments Full Code 10/04/2018 8:21 PM 10/08/2018 5:55 PM Full Code 09/23/2018 1:48 PM 09/23/2018 6:55 PM Care Teams Algebraist Relationship Specialty Start Date End Date Keila Valentine MD PCP - General Surgical Oncology 08/26/18 [address] [place] [address] Navi Arango FNP PCP - External Primary Family Practice 09/08/18 [address] [place] [address]
--- OUTSIDE RECORDS SUMMARY | 2022-01-20 00:29 | XMS REPORT | Continuity of Care Document ---
:1985 Author Organization [facility] t Address [address] [place] [address] Care Team Providers Name Role Phone Serge BARNARD Primary Care Physician Yari Arango Attending Clinician Unavailable Mohan KNOWLES Attending Clinician MOHAN Attending Clinician Unavailable Wan BARNARD Attending Clinician LARA Attending Clinician Unavailable Gerald Clements Attending Clinician Unavailable JANIA Attending Clinician Unavailable TAJ COTTON Attending Clinician Unavailable Zoltan Wright RN Attending Clinician RODRICK Attending Clinician Unavailable MR CHIDI Attending Clinician Unavailable Zarina Perez Attending Clinician Unavailable DO СВЕТЛАНА Attending Clinician Unavailable WANDA Attending Clinician Unavailable WAN Attending Clinician Unavailable RIVERA Attending Clinician Unavailable Zoltan WOLFE Attending Clinician Unavailable JODY Attending Clinician Unavailable HAL Attending Clinician Unavailable LUCÍA WILSON DR Attending Clinician Unavailable DARYL Attending Clinician Unavailable LARA Admitting Clinician Unavailable Physician, Primary or Family Admitting Clinician Unavailrenetta DYKES Admitting Clinician Unavailable TAJ COTTON Admitting Clinician Unavailable RODRICK Admitting Clinician Unavailable MR CHIDI Admitting Clinician Unavailable DO СВЕТЛАНА Admitting Clinician Unavailable WANDA Admitting Clinician Unavailable RIVERA Admitting Clinician Unavailable Zoltan WOLFE Admitting Clinician Unavailable GEOVANIAIDANKYChin Admitting Clinician Unavailable HAL Admitting Clinician Unavailable LUCÍA WILSON DR Admitting Clinician Unavailable DARYL Admitting Clinician Unavailable Irwin THOMPSON Admitting Clinician Unavailable SHABNAM Admitting Clinician Unavailable DR MERLE Admitting Clinician Unavailable Payers Payer Name Policy Type Policy Number Effective Date Expiration Date Abhinav durbin [id number] 1958 00:00:00 [id number] 1958 00:00:00 PHCS GENERIC [id number] 2018 00:00:00 Problems Condition Condition Condition Status [...] [facility] 7[facility]27 [facility] (LUF/LI V/SA) Chronic Chronic Problem Active [facility] abdominal abdominal 6-10 [facility] pain pain 00:00: Memoria 00 l (LUF/LI V/SA) Tension-ty Tension-ty Problem Active [facility] pe pe 1- [facility] headache headache 00:00: [facility] a 00 l (LUF/LI V/SA) Constipati Constipati Problem Active 2018-[address] on on 1-17 [facility] (LUF/LI V/SA) Cyst of Cyst of Problem Active [facility] right right 6-09 [facility] ovary ovary 00:00: [facility]oria 00 l (LUF/LI V/SA) Surgical Surgical Disease Active Unive rs site site 4-07 [place] [facility] Encounter Encounter Disease Active Overview: Univers for other for other 09-08 Formattin i ty of preprocedu preprocedu 00:00: g of this [place] ral ral 00 note examinatio examinatio might be [facility] different n from the Cancer original. Center EKG 09/08/2018 NSRNR [id number] Obesity Obesity Disease Active Overview: Univ ers 3-11 Formattin ity of 00:00: g of this [place] 00 note is MD jim Springer from [...] rs active active ity of problems problems [facility] Allergies, Adverse Reactions, Alerts Allergy Allergy Status Severity Reaction(s) Onset Inactive Treating Comm ents Source Name Type Date Date Clinician ketor[place] DA Active U rash [facility] 2[facility]07 [place] 00:00: d 00 [facility] KETOROLA DRUG Active Low Rash 2020-07 Univers C INGREDI 2- ity of 00:00: [place] 00 [facility] Ket[place] Propensi Active Rash 2020-07 Univer s c ty to 2- ity of adverse 00:00: [place] reaction 00 [facility] ketorola DA Active SC [facility] 9[facility]10 [facility] [place] DA Active U [facility] c 03-24 [place] 00:00: d 00 [facility] ketorola DA Active U rash [facility] c 03-24 [place] 00:00: d 00 [facility] [place] Drug Active Itching Univers c Allergy 07-19 ity of 00:00: [place] 00 MD Gian payton [facility] Toradol Adverse Active Info Not Common Reaction Available [facility] t - [facility] Family History Family Member Diagnosis Comments Start Date Stop Date Source Natural mother -Breast cancer [facility] [place] [facility] Social History Social Habit Start Date Stop Date Quantity Comments Source Exposure to 2021-11-19 2021-11-29 Not sure [facility] SARS-CoV-2 (event) 00:00:00 17:39:[address] [facility] Alcohol intake 2018-10-04 2018-10-04 Current University of 00:00:00 00:00:00 non-drinker of [place] MD Lila muñoz alcohol [facility] (finding) Cigarette 2018-09-04 2018-09-04 University of pack-years 00:00:00 00:00:00 [place] MD Olvin banuelos [facility] Tobacco use and 2018-09-04 2018-09-04 Smokeless Universit y of exposure 00:00:00 00:00:00 tobacco non-user [facility] Cigarettes smoked 2018-09-04 2018-09-04 Univers ity of current (pack per 00:00:00 00:00:00 [place] Zoltan Neely ) - Reported Cancer Ce nter History of tobacco 2004-07-01 2017-05-11 Smoker Univer sity of use 00:00:00 00:00:00 [place] MD Olvin banuelos [facility] Sex Ass[birth year] At [birth year] Universit y of 00:00:00 00:00:00 [place] MD Olvin banuelos [facility] Smoking Status Start Date Stop Date Source Never smoker [facility] Ex-smoker 2018-09-04 00:00:00 2018-09-04 00:00:00 Universi ty of [facility] Medications Ordered Filled Start Stop Current Ordering Indication Dosage Frequency Signature Comments Components Source Medication Medication Date Date Medication? Clinician (SIG) Name Name methylPREDN Yes [id number] Take by Univers ISolone 11-29 mouth ity of (MEDROL, 00:00: SEE-INSTRU Jacques as TE,) 4 mg 00 CTIONS. Medica l tablets follow Branch package directions amoxicillin 2021- Yes [id number] 1{tbl} Take 1 Univers -clavulanat 11-29 tablet [...] [place] ORAL) 44 [facility] naproxen Yes [id number] 500mg Take 1 U nivers (NAPROSYN) 2-02 tablet by ity of 500 mg 00:00: mouth 2 [place] tablet 00 (two) Medical times Branch daily with meals. albuterol 2020-07 Yes [id number] 2{puff} Inhale 2 Univers 90 2-22 Puffs [...] (LUF/ LI Tablet Tablet V/SA) acetaminoph acetaminoph 2020-0 Yes [address] [facility] en 325 MG / en 325 MG / 8-26 every 4 to [facility] hydrocodone hydrocodone 00:00: 6 hours as Memoria bitartrate bitartrate 00 needed. l 5 MG Oral 5 MG Oral (as needed (LUF/LI Tablet Tablet for pain) V/SA) estrogens, 2018-07 Yes Take by [facility] ers conjugated 0-23 mouth ity of (PREMARIN 00:00: daily. [place] ORAL) 00 [facility] Premarin Premarin 2018-07 Yes Kaywin 1 tablet Common 0-23 [facility]: - [facility] estrogens, 2018-07 Yes Take by [facility] ers conjugated 0-23 mouth ity of (PREMARIN 00:00: daily. [place] ORAL) 00 [facility] Estradiol Estradiol 2018-07 Yes Kaywin 1 tablet Common 0-01 [facility] 00:00: - [facility] citalopram Yes Univers (CeleXA) 40 9-10 ity of mg tablet 00:00: [place] MD Springer [facility] citalopram Yes Univers (CeleXA) 40 9-10 ity of mg tablet 00:00: [place] MD Springer [facility] levothyroxi Yes Univer s ne 175 mcg 8-10 ity of cap 00:00: MD Gian payton [facility] levothyroxi Yes Univer s ne 175 mcg 8-10 ity of cap 00:00: [place] MD Gian payton [facility] zolpidem Yes Univers (AMBIEN) 10 - ity of mg tablet 00:00: [place] 00 MD Gian payton [facility] zolpidem Yes Univers (AMBIEN) 10 - ity of mg tablet 00:00: [place] 00 MD Springer [facility] acetaminoph acetaminoph Yes [address] [...] C [facility] St conjugated conjugated Gutierrez es (SHELTER) 1.25 (SHELTER) 1.25 Mem oria MG Oral MG Oral [...] [facility] conjugated conjugated daily Olamide kes (SHELTER) 1.25 (SHELTER) 1.25 Mem oria MG Oral MG Oral l Tablet Tablet (LUF/LI V/SA) levothyroxi levothyroxi Yes 150ug 1xD orally [facility] ne ne daily [facility] (LUF/LI V/SA) Celexa Celexa Yes Kaywin 1 tablet Commo n [facility] Levothyroxi Levothyroxi Yes Kaywin 1 tablet Common ne Sodium ne Sodium [facility] on an Sp karla empty - [facility] stomach in [facility] Estradiol Estradiol Yes Lizbeth 1 patch to Common [facility] Immunizations Ordered Filled Immunization Date Status Comments Sour e Immunization Name Name influenza, high influenza, high 2015-04-19 Completed [facility] dose seasonal, dose seasonal, 00:00:00 Sim lam preservative-free preservative-free (LUF/DAVID/SA) Influenza, 2011-03-30 Completed University of Unspecified 00:00:00 [place] MD Alfonso hazel [facility] Tdap 2011-03-30 Completed University of 00:00:00 [place] MD Olvin banuelos [facility] Influenza, 2011-03-30 Completed University of Unspecified 00:00:00 [place] MD Alfonso hazel [facility] Tdap 2011-03-30 Completed University of 00:00:00 [place] MD Olvin banueols [facility] Influenza (IM) 2009-04-05 Completed University of Preservative Free 00:00:00 [facility] Influenza (IM) 2009-04-05 Completed University of Preservative Free 00:00:00 [facility] Vital Signs Vital Name Observation Time Observation Value Comments Source Systolic blood 2021-11-29 22:40:00 116 mm[Hg] [facility] sity of pressure [facility] Diastolic blood 2021-11-29 22:40:00 85 mm[Hg] [facility] Heart rate 2021-11-29 22:40:00 87 /min [facility] Body temperature 2021-11-29 22:40:00 37.28 Ericka [facility] Respiratory rate 2021-11-29 22:40:00 16 /min [facility] Body height 2021-11-29 22:40:00 162.6 cm [facility] Body weight 2021-11-29 22:40:00 103.874 kg [facility] BMI 2021-11-29 22:40:00 39.31 kg/m2 [facility] Oxygen saturation in 2021-11-29 22:40:00 98 /min [facility] Arterial blood by [facility] Pulse oximetry Branch Height 2021-04-23 00:58:00 162.56 [...] 15:16:33 119 mm[Hg] Univer sity of pressure [facility] Diastolic blood 2021-10-26 15:16:33 87 mm[Hg] Unive rsity of pressure [facility] Heart rate 2021-10-26 15:16:33 92 /min Universi ty of [facility] Respiratory rate 2021-10-26 15:16:33 16 /min Univ ersity of [facility] Oxygen saturation in 2021-10-26 15:16:33 98 /min University Arterial blood by Jeffrey ponceon Pulse oximetry [facility] Body Temperature 2021-04-23 00:58:00 97.8 [degF] [facility] (LUF/DAVID/SA) Pulse Rate 2021-04-23 00:58:00 116 /min [facility] (LUF/DAVID/SA) Respiratory Rate 2021-04-23 00:58:00 18 /min [facility] (LUF/DAVID/SA) O2% BldC Oximetry 2021-04-23 00:58:00 99 % [facility] (LUF/DAVID/SA) BP Systolic 2021-04-23 00:58:00 111 mm[Hg] [facility] (LUF/DAVID/SA) BP Diastolic 2021-04-23 00:58:00 77 mm[Hg] [facility] (LUF/DAVID/SA) Height 2021-04-23 00:58:00 64 [in_i] [facility] (LUF/DAVID/SA) Weight 2021-04-23 00:58:00 105.1 kg [facility] (LUF/DAVID/SA) BMI (Body Mass 2021-04-23 00:58:00 40 kg/m2 [facility] (LUF/DAVID/SA) Body Temperature 2021-03-24 10:53:00 98.6 [degF] [facility] (LUF/DAVID/SA) Pulse Rate 2021-03-24 10:53:00 87 /min [facility] (LUF/DAVID/SA) Respiratory Rate 2021-03-24 10:53:00 18 /min [facility] (LUF/DAVID/SA) O2% BldC Oximetry 2021-03-24 10:53:00 97 % [facility] (LUF/DAVID/SA) BP Systolic 2021-03-24 10:53:00 120 mm[Hg] [facility] (LUF/DAVID/SA) BP Diastolic 2021-03-24 10:53:00 86 mm[Hg] [facility] (LUF/DAVID/SA) Height 2021-03-24 10:53:00 64 [in_i] [facility] (LUF/DAVID/SA) Weight 2021-03-24 10:53:00 105 kg [facility] (LUF/DAVID/SA) BMI (Body Mass 2021-03-24 10:53:00 40 kg/m2 [facility] Index) [facility] (LUF/DAVID/SA) Body Temperature 2021-03-10 10:55:00 98.4 [degF] [facility] (LUF/DAVID/SA) Pulse Rate 2021-03-10 10:55:00 85 /min [facility] (LUF/DAVID/SA) Respiratory Rate 2021-03-10 10:55:00 20 /min [facility] (F/DAVID/SA) O2% BldC Oximetry 2021-03-10 10:55:00 100 % [facility] (F/DAVID/SA) BP Systolic 2021-03-10 10:55:00 140 mm[Hg] [facility] (LUF/DAVID/SA) BP Diastolic 2021-03-10 10:55:00 98 mm[Hg] [facility] (F/DAVID/SA) Height 2021-03-10 10:55:00 64 [in_i] [facility] (F/DAVID/SA) Weight 2021-03-10 10:55:00 105.2 kg [facility] (LUF/DAVID/SA) BMI (Body Mass 2021-03-10 10:55:00 40 kg/m2 [facility] Index) [facility] (LUF/DAVID/SA) Pulse Rate 2021-02-23 12:32:00 67 /min [facility] (LUF/DAVID/SA) O2% BldC Oximetry 2021-02-23 12:32:00 98 % [facility] (F/DAVID/SA) BP Systolic 2021-02-23 12:32:00 112 mm[Hg] [facility] (LUF/DAVID/SA) BP Diastolic 2021-02-23 12:32:00 70 mm[Hg] [facility] (LUF/DAVID/SA) Heart Rate 2021-02-23 11:16:00 64 /min [facility] (LUF/DAVID/SA) Respiratory Rate 2021-02-23 11:16:00 14 /min [facility] (LUF/DAVID/SA) Body Temperature 2021-02-23 08:24:00 98.1 [degF] [facility] (LUF/DAVID/SA) Height 2021-02-23 08:24:00 64 [in_i] [facility] (LUF/DAVID/SA) Weight 2021-02-23 08:24:00 110 kg [facility] (LUF/DAVID/SA) BMI (Body Mass 2021-02-23 08:24:00 41.9 kg/m2 [facility] (LUF/DAVID/SA) Heart Rate 2021-01-10 01:46:00 93 /min [facility] (LUF/DAVID/SA) Pulse Rate 2021-01-10 01:46:00 95 /min [facility] (LUF/DAVID/SA) Respiratory Rate 2021-01-10 01:46:00 16 /min [facility] (LUF/DAVID/SA) O2% BldC Oximetry 2021-01-10 01:46:00 97 % [facility] (LUF/DAVID/SA) BP Systolic 2021-01-10 01:46:00 103 mm[Hg] [facility] (LUF/DAVID/SA) BP Diastolic 2021-01-10 01:46:00 71 mm[Hg] [facility] (F/DAVID/SA) Weight 2021-01-10 00:53:00 102 kg [facility] (F/DAVID/SA) Body Temperature 2021-01-10 00:47:00 98.6 [degF] [facility] (LUF/DAVID/SA) Pulse Rate 2020-12-12 14:20:00 87 /min [facility] (F/DAVID/SA) O2% BldC Oximetry 2020-12-12 14:20:00 98 % [facility] (LUF/DAVID/SA) BP Systolic 2020-12-12 14:20:00 128 mm[Hg] [facility] (LUF/DAVID/SA) BP Diastolic 2020-12-12 14:20:00 86 mm[Hg] [facility] (LUF/DAVID/SA) Body Temperature 2020-12-12 12:39:00 98.9 [degF] [facility] (LUF/DAVID/SA) Respiratory Rate 2020-12-12 12:39:00 20 /min [facility] (LUF/DAVID/SA) Weight 2020-12-12 12:39:00 102 kg [facility] (LUF/DAVID/SA) Body Temperature 2020-12-08 10:27:00 98.6 [degF] [facility] (LUF/DAVID/SA) Pulse Rate 2020-12-08 10:27:00 79 /min [facility] (LUF/DAVID/SA) Respiratory Rate 2020-12-08 10:27:00 16 /min [facility] (LUF/DAVID/SA) O2% BldC Oximetry 2020-12-08 10:27:00 99 % [facility] (LUF/DAVID/SA) BP Systolic 2020-12-08 10:27:00 111 mm[Hg] [facility] (LUF/DAVID/SA) BP Diastolic 2020-12-08 10:27:00 57 mm[Hg] [facility] (LUF/DAVID/SA) Weight 2020-12-08 10:27:00 103 kg [facility] (LUF/DAVID/SA) Body Temperature 2020-11-25 00:27:00 97.9 [degF] [facility] (LUF/DAVID/SA) Pulse Rate 2020-11-25 00:27:00 82 /min [facility] (LUF/DAVID/SA) Respiratory Rate 2020-11-25 00:27:00 17 /min [facility] (LUF/DAVID/SA) O2% BldC Oximetry 2020-11-25 00:27:00 98 % [facility] (LUF/DAVID/SA) BP Systolic 2020-11-25 00:27:00 109 mm[Hg] [facility] (LUF/DAVID/SA) BP Diastolic 2020-11-25 00:27:00 62 mm[Hg] [facility] (LUF/DAVID/SA) Heart Rate 2020-11-21 09:30:00 75 /min [facility] (LUF/DAVID/SA) Respiratory Rate 2020-11-21 09:30:00 14 /min [facility] (LUF/DAVID/SA) BP Systolic 2020-11-21 09:30:00 120 mm[Hg] [facility] (LUF/DAVID/SA) BP Diastolic 2020-11-21 09:30:00 76 mm[Hg] [facility] (LUF/DAVID/SA) Body Temperature 2020-11-21 07:15:00 98.1 [degF] [facility] (LUF/DAVID/SA) Pulse Rate 2020-11-21 07:15:00 103 /min [facility] (LUF/DAVID/SA) O2% BldC Oximetry 2020-11-21 07:15:00 100 % [facility] (F/DAVID/SA) Height 2020-11-21 07:15:00 64 [in_i] [facility] (F/DAVID/SA) Weight 2020-11-21 07:15:00 103.1 kg [facility] (LUF/DAVID/SA) BMI (Body Mass 2020-11-21 07:15:00 39.2 kg/m2 [facility] (LUF/DAVID/SA) Heart Rate 2020-11-14 13:30:00 69 /min [facility] (LUF/DAVID/SA) Pulse Rate 2020-11-14 13:30:00 70 /min [facility] (LUF/DAVID/SA) Respiratory Rate 2020-11-14 13:30:00 10 /min [facility] (LUF/DAVID/SA) O2% BldC Oximetry 2020-11-14 13:30:00 96 % [facility] (LUF/DAVID/SA) BP Systolic 2020-11-14 13:30:00 103 mm[Hg] [facility] (LUF/DAVID/SA) BP Diastolic 2020-11-14 13:30:00 77 mm[Hg] [facility] (LUF/DAVID/SA) Body Temperature 2020-11-14 09:47:00 97.4 [degF] [facility] (LUF/DAVID/SA) Weight 2020-11-14 09:47:00 103 kg [facility] (LUF/DAVID/SA) Body Temperature 2020-11-08 08:32:00 98.1 [degF] [facility] (LUF/DAVID/SA) Pulse Rate 2020-11-08 08:32:00 82 /min [facility] (LUF/DAVID/SA) Respiratory Rate 2020-11-08 08:32:00 20 /min [facility] (LUF/DAVID/SA) O2% BldC Oximetry 2020-11-08 08:32:00 100 % [facility] (LUF/DAVID/SA) BP Systolic 2020-11-08 08:32:00 129 mm[Hg] [facility] (LUF/DAVID/SA) BP Diastolic 2020-11-08 08:32:00 72 mm[Hg] [facility] (LUF/DAVID/SA) Height 2020-11-08 08:32:00 64 [in_i] [facility] (LUF/DAVID/SA) Weight 2020-11-08 08:32:00 103.1 kg [facility] (LUF/DAVID/SA) BMI (Body Mass 2020-11-08 08:32:00 39.2 kg/m2 [facility] (LUF/DAVID/SA) Body Temperature 2020-11-01 00:58:00 98.7 [degF] [facility] (LUF/DAVID/SA) Pulse Rate 2020-11-01 00:58:00 104 /min [facility] (LUF/DAVID/SA) Respiratory Rate 2020-11-01 00:58:00 20 /min [facility] (LUF/DAVID/SA) O2% BldC Oximetry 2020-11-01 00:58:00 99 % [facility] (LUF/DAVID/SA) BP Systolic 2020-11-01 00:58:00 133 mm[Hg] [facility] (LUF/DAVID/SA) BP Diastolic 2020-11-01 00:58:00 101 mm[Hg] [facility] (LUF/DAVID/SA) Height 2020-11-01 00:53:00 65 [in_i] [facility] (LUF/DAVID/SA) Weight 2020-11-01 00:53:00 103 kg [facility] (LUF/DAVID/SA) BMI (Body Mass 2020-11-01 00:53:00 37.8 kg/m2 [facility]) [facility] (LUF/DAVID/SA) Body Temperature 2020-10-04 23:51:00 98 [degF] [facility] (LUF/DAVID/SA) Pulse Rate 2020-10-04 23:51:00 96 /min [facility] (LUF/DAVID/SA) Respiratory Rate 2020-10-04 23:51:00 20 /min [facility] (LUF/DAVID/SA) O2% BldC Oximetry 2020-10-04 23:51:00 98 % [facility] (LUF/DAVID/SA) BP Systolic 2020-10-04 23:51:00 125 mm[Hg] [facility] (LUF/DAVID/SA) BP Diastolic 2020-10-04 23:51:00 73 mm[Hg] [facility] (LUF/DAVID/SA) Height 2020-10-04 23:47:00 65 [in_i] [facility] (LUF/DAVID/SA) Weight 2020-10-04 23:47:00 102.6 kg [facility] (LUF/DAVID/SA) BMI (Body Mass 2020-10-04 23:47:00 37.6 kg/m2 [facility] Index) [facility] (LUF/DAVID/SA) Body Temperature 2020-09-18 01:44:00 98.3 [degF] [facility] (LUF/DAVID/SA) Pulse Rate 2020-09-18 01:44:00 116 /min [facility] (LUF/DAVID/SA) Respiratory Rate 2020-09-18 01:44:00 20 /min [facility] (LUF/DAVID/SA) O2% BldC Oximetry 2020-09-18 01:44:00 99 % [facility] (LUF/DAVID/SA) BP Systolic 2020-09-18 01:44:00 127 mm[Hg] [facility] (LUF/DAVID/SA) BP Diastolic 2020-09-18 01:44:00 83 mm[Hg] [facility] (LUF/DAVID/SA) Height 2020-09-18 01:40:00 64 [in_i] [facility] (LUF/DAVID/SA) Weight 2020-09-18 01:40:00 102.8 kg [facility] (LUF/DAVID/SA) BMI (Body Mass 2020-09-18 01:40:00 39.1 kg/m2 [facility] Index) [facility] (LUF/DAVID/SA) Pulse Rate 2020-09-12 02:16:00 88 /min [facility] (LUF/DAVID/SA) O2% BldC Oximetry 2020-09-12 02:16:00 98 % [facility] (LUF/DAVID/SA) BP Systolic 2020-09-12 02:16:00 113 mm[Hg] [facility] (LUF/DAVID/SA) BP Diastolic 2020-09-12 02:16:00 64 mm[Hg] [facility] (LUF/DAVID/SA) Body Temperature 2020-09-12 00:56:00 97.9 [degF] [facility] (LUF/DAVID/SA) Respiratory Rate 2020-09-12 00:56:00 18 /min [facility] (LUF/DAVID/SA) Height 2020-09-12 00:50:00 65 [in_i] [facility] (LUF/DAVID/SA) Weight 2020-09-12 00:50:00 104.5 kg [facility] (LUF/DAVID/SA) BMI (Body Mass 2020-09-12 00:50:00 38.3 kg/m2 [facility] (LUF/DAVID/SA) Pulse Rate 2020-08-22 03:16:00 100 /min [facility] (LUF/DAVID/SA) O2% BldC Oximetry 2020-08-22 03:16:00 95 % [facility] (LUF/DAVID/SA) BP Systolic 2020-08-22 03:16:00 129 mm[Hg] [facility] (LUF/DAVID/SA) BP Diastolic 2020-08-22 03:16:00 88 mm[Hg] [facility] (LUF/DAVID/SA) Body Temperature 2020-08-22 01:35:00 98.4 [degF] [facility] (LUF/DAVID/SA) Respiratory Rate 2020-08-22 01:35:00 20 /min [facility] (LUF/DAVID/SA) Height 2020-08-22 01:35:00 64 [in_i] [facility] (LUF/DAVID/SA) Weight 2020-08-22 01:35:00 102 kg [facility] (LUF/DAVID/SA) BMI (Body Mass 2020-08-22 01:35:00 38.8 kg/m2 [facility] (LUF/DAVID/SA) Pulse Rate 2020-08-06 03:31:00 83 /min [facility] (LUF/DAVID/SA) O2% BldC Oximetry 2020-08-06 03:31:00 96 % [facility] (LUF/DAVID/SA) BP Systolic 2020-08-06 03:31:00 127 mm[Hg] [facility] (LUF/DAVID/SA) BP Diastolic 2020-08-06 03:31:00 82 mm[Hg] [facility] (LUF/DAVID/SA) Body Temperature 2020-08-06 01:45:00 98 [degF] [facility] (LUF/DAVID/SA) Respiratory Rate 2020-08-06 01:45:00 20 /min [facility] (LUF/DAVID/SA) Height 2020-08-06 01:39:00 66 [in_i] [facility] (LUF/DAVID/SA) Weight 2020-08-06 01:39:00 104.2 kg [facility] (LUF/DAVID/SA) BMI (Body Mass 2020-08-06 01:39:00 37.3 kg/m2 [facility] (LUF/DAVID/SA) Pulse Rate 2020-07-19 11:16:00 67 /min [facility] (F/DAVID/SA) O2% BldC Oximetry 2020-07-19 11:16:00 94 % [facility] (F/DAVID/SA) BP Systolic 2020-07-19 11:16:00 101 mm[Hg] [facility] (F/DAVID/SA) BP Diastolic 2020-07-19 11:16:00 63 mm[Hg] [facility] (F/DAVID/SA) Body Temperature 2020-07-19 07:50:00 98 [degF] [facility] (F/DAVID/SA) Respiratory Rate 2020-07-19 07:50:00 18 /min [facility] (F/DAVID/SA) Weight 2020-07-19 07:50:00 100 kg [facility] (F/DAVID/SA) Heart Rate 2020-07-05 04:46:00 80 /min [facility] (F/DAVID/SA) Respiratory Rate 2020-07-05 04:46:00 15 /min [facility] (F/DAVID/SA) BP Systolic 2020-07-05 04:46:00 134 mm[Hg] [facility] (LUF/DAVID/SA) BP Diastolic 2020-07-05 04:46:00 60 mm[Hg] [facility] (F/DAVID/SA) Body Temperature 2020-07-05 02:57:00 98 [degF] [facility] (F/DAVID/SA) Pulse Rate 2020-07-05 02:57:00 82 /min [facility] (F/DAVID/SA) O2% BldC Oximetry 2020-07-05 02:57:00 99 % [facility] (F/DAVID/SA) Height 2020-07-05 02:50:00 65 [in_i] [facility] (LUF/DAVID/SA) Weight 2020-07-05 02:50:00 102.1 kg [facility] (LUF/DAVID/SA) BMI (Body Mass 2020-07-05 02:50:00 37.5 kg/m2 [facility] (LUF/DAVID/SA) Body Temperature 2020-06-07 13:38:00 98.5 [degF] [facility] (LUF/DAVID/SA) Pulse Rate 2020-06-07 13:38:00 95 /min [facility] (LUF/DAVID/SA) Respiratory Rate 2020-06-07 13:38:00 20 /min [facility] (LUF/DAVID/SA) O2% BldC Oximetry 2020-06-07 13:38:00 97 % [facility] (LUF/DAVID/SA) BP Systolic 2020-06-07 13:38:00 129 mm[Hg] [facility] (LUF/DAVID/SA) BP Diastolic 2020-06-07 13:38:00 73 mm[Hg] [facility] (LUF/DAVID/SA) Height 2020-06-07 13:38:00 64 [in_i] [facility] (LUF/DAVID/SA) Weight 2020-06-07 13:38:00 99.79 kg [facility] (LUF/DAVID/SA) BMI (Body Mass 2020-06-07 13:38:00 38 kg/m2 [facility] Index) [facility] (LUF/DAVID/SA) Body Temperature 2020-05-31 09:45:00 99.6 [degF] [facility] (LUF/DAVID/SA) Pulse Rate 2020-05-31 09:45:00 86 /min [facility] (LUF/DAVID/SA) Respiratory Rate 2020-05-31 09:45:00 18 /min [facility] (LUF/DAVID/SA) O2% BldC Oximetry 2020-05-31 09:45:00 98 % [facility] (LUF/DAVID/SA) BP Systolic 2020-05-31 09:45:00 118 mm[Hg] [facility] (LUF/DAVID/SA) BP Diastolic 2020-05-31 09:45:00 78 mm[Hg] [facility] (LUF/DAVID/SA) Height 2020-05-31 09:45:00 64 [in_i] [facility] (LUF/DAVID/SA) Weight 2020-05-31 09:45:00 99.79 kg [facility] (LUF/DAVID/SA) BMI (Body Mass 2020-05-31 09:45:00 38 kg/m2 [facility] Index) [facility] (LUF/DAVID/SA) Heart Rate 2020-04-25 20:01:00 69 /min [facility] (LUF/DAVID/SA) Pulse Rate 2020-04-25 20:01:00 71 /min [facility] (LUF/DAVID/SA) Respiratory Rate 2020-04-25 20:01:00 18 /min [facility] (LUF/DAVID/SA) O2% BldC Oximetry 2020-04-25 20:01:00 100 % [facility] (LUF/DAVID/SA) BP Systolic 2020-04-25 20:01:00 126 mm[Hg] [facility] (LUF/DAVID/SA) BP Diastolic 2020-04-25 20:01:00 86 mm[Hg] [facility] (LUF/DAVID/SA) Body Temperature 2020-04-25 16:50:00 98.4 [degF] [facility] (LUF/DAVID/SA) Height 2020-04-25 16:50:00 64 [in_i] [facility] (LUF/DAVID/SA) Weight 2020-04-25 16:50:00 220 [lb_av] [facility] (LUF/DAVID/SA) BMI (Body Mass 2020-04-25 16:50:00 38 kg/m2 [facility] Index) [facility] (LUF/DAVID/SA) Heart Rate 2020-03-20 18:18:00 112 /min [facility] (LUF/DAVID/SA) Pulse Rate 2020-03-20 18:16:00 93 /min [facility] (LUF/DAVID/SA) O2% BldC Oximetry 2020-03-20 18:16:00 92 % [facility] (LUF/DAVID/SA) BP Systolic 2020-03-20 18:16:00 127 mm[Hg] [facility] (LUF/DAVID/SA) BP Diastolic 2020-03-20 18:16:00 85 mm[Hg] [facility] (LUF/DAVID/SA) Body Temperature 2020-03-20 17:17:00 99.2 [degF] [facility] (LUF/DAVID/SA) Respiratory Rate 2020-03-20 17:17:00 19 /min [facility] (LUF/DAVID/SA) Height 2020-03-20 17:17:00 64 [in_i] [facility] (LUF/DAVID/SA) Weight 2020-03-20 17:17:00 106.9 kg [facility] (LUF/DAVID/SA) BMI (Body Mass 2020-03-20 17:17:00 40.7 kg/m2 [facility] (LUF/DAVID/SA) Respiratory Rate 2020-03-17 10:33:00 16 /min [facility] (LUF/DAVID/SA) Body Temperature 2020-03-17 07:54:00 97.9 [degF] [facility] (LUF/DAVID/SA) Pulse Rate 2020-03-17 07:54:00 83 /min [facility] (LUF/DAVID/SA) O2% BldC Oximetry 2020-03-17 07:54:00 96 % [facility] (LUF/DAVID/SA) BP Systolic 2020-03-17 07:54:00 107 mm[Hg] [facility] (LUF/DAVID/SA) BP Diastolic 2020-03-17 07:54:00 75 mm[Hg] [facility] (LUF/DAVID/SA) Weight 2020-03-17 00:09:00 105.6 kg [facility] (LUF/DAVID/SA) Heart Rate 2020-03-13 15:46:00 81 /min [facility] (LUF/DAVID/SA) Height 2020-03-13 15:31:00 64 [in_i] [facility] (LUF/DAVID/SA) Body Temperature 2020-03-02 15:20:00 98.6 [degF] [facility] (LUF/DAVID/SA) Pulse Rate 2020-03-02 15:20:00 86 /min [facility] (LUF/DAVID/SA) Respiratory Rate 2020-03-02 15:20:00 18 /min [facility] (LUF/DAVID/SA) O2% BldC Oximetry 2020-03-02 15:20:00 99 % [facility] (LUF/DAVID/SA) BP Systolic 2020-03-02 15:20:00 131 mm[Hg] [facility]ID[facility] BP Diastolic 2020-03-02 15:20:00 85 mm[Hg] [facility] (LUF/DAVID/SA) Height 2020-03-01 10:54:00 64 [in_i] [facility] (LUF/DAVID/SA) Weight 2020-03-01 10:54:00 102 kg [facility] (LUF/DAVID/SA) BMI (Body Mass 2020-03-01 10:54:00 38.8 kg/m2 [facility] (LUF/DAVID/SA) Respiratory Rate 2020-02-27 07:47:00 16 /min [facility] (LUF/DAVID/SA) Body Temperature 2020-02-27 07:32:00 98.2 [degF] [facility] (LUF/DAVID/SA) Pulse Rate 2020-02-27 07:32:00 94 /min [facility] (LUF/DAVID/SA) O2% BldC Oximetry 2020-02-27 07:32:00 95 % [facility] (LUF/DAVID/SA) BP Systolic 2020-02-27 07:32:00 111 mm[Hg] [facility]LUF/DAVID/SA[facility] BP Diastolic 2020-02-27 07:32:00 56 mm[Hg] [facility] (LUF/DAVID/SA) Weight 2020-02-26 02:09:[address] [facility] (LUF/DAVID/SA) Height 2020-02-25 10:03:00 64 [in_i] [facility] (LUF/DAVID/SA) Body Temperature 2020-02-25 00:52:00 97.9 [degF] [facility] (LUF/DAVID/SA) Pulse Rate 2020-02-25 00:52:00 118 /min [facility] (LUF/DAVID/SA) Respiratory Rate 2020-02-25 00:52:00 18 /min [facility] (LUF/DAVID/SA) O2% BldC Oximetry 2020-02-25 00:52:00 97 % [facility] (LUF/DAVID/SA) BP Systolic 2020-02-25 00:52:00 133 mm[Hg] [facility] (LUF/DAVID/SA) BP Diastolic 2020-02-25 00:52:00 67 mm[Hg] [facility] (LUF/DAVID/SA) Height 2020-02-25 00:47:00 64 [in_i] [facility] (LUF/DAVID/SA) Weight 2020-02-25 00:47:00 103.4 kg [facility] (LUF/DAVID/SA) BMI (Body Mass 2020-02-25 00:47:00 39.3 kg/m2 [facility] (LUF/DAVID/SA) Body Temperature 2020-01-25 11:32:00 98.4 [degF] [facility] (LUF/DAVID/SA) Pulse Rate 2020-01-25 11:32:00 81 /min [facility] (LUF/DAVID/SA) Respiratory Rate 2020-01-25 11:32:00 14 /min [facility] (LUF/DAVID/SA) O2% BldC Oximetry 2020-01-25 11:32:00 98 % [facility] (LUF/DAVID/SA) BP Systolic 2020-01-25 11:32:00 139 mm[Hg] [facility] (LUF/DAVID/SA) BP Diastolic 2020-01-25 11:32:00 89 mm[Hg] [facility] (LUF/DAVID/SA) Height 2020-01-25 11:32:00 64 [in_i] [facility] (LUF/DAVID/SA) Weight 2020-01-25 11:32:00 100.5 kg [facility] (LUF/DAVID/SA) BMI (Body Mass 2020-01-25 11:32:00 38.2 kg/m2 [facility] Index) [facility] (LUF/DAVID/SA) Heart Rate 2019-11-24 04:16:00 84 /min [facility] (LUF/DAVID/SA) Pulse Rate 2019-11-24 04:16:00 90 /min [facility] (LUF/DAVID/SA) Respiratory Rate 2019-11-24 04:16:00 26 /min [facility] (LUF/DAVID/SA) O2% BldC Oximetry 2019-11-24 04:16:00 98 % [facility] (LUF/DAVID/SA) BP Systolic 2019-11-24 04:16:00 106 mm[Hg] [facility] (LUF/DAVID/SA) BP Diastolic 2019-11-24 04:16:00 69 mm[Hg] [facility] (LUF/DAVID/SA) Body Temperature 2019-11-24 00:54:00 98.4 [degF] [facility] (F/DAVID/SA) Height 2019-11-24 00:49:00 65 [in_i] [facility] (LUF/DAVID/SA) Weight 2019-11-24 00:49:00 103 kg [facility] (LUF/DAVID/SA) BMI (Body Mass 2019-11-24 00:49:00 37.8 kg/m2 [facility] Index) [facility] (LUF/DAVID/SA) Heart Rate 2019-10-07 22:54:00 83 /min [facility] (LUF/DAVID/SA) Respiratory Rate 2019-10-07 22:54:00 14 /min [facility] (LUF/DAVID/SA) Pulse Rate 2019-10-07 22:31:00 89 /min [facility] (LUF/DAVID/SA) O2% BldC Oximetry 2019-10-07 22:31:00 97 % [facility] (LUF/DAVID/SA) BP Systolic 2019-10-07 21:16:00 127 mm[Hg] [facility] (LUF/DAVID/SA) BP Diastolic 2019-10-07 21:16:00 85 mm[Hg] [facility] (LUF/DAVID/SA) Height 2019-10-07 20:41:00 64 [in_i] [facility] (LUF/DAVID/SA) Weight 2019-10-07 20:41:00 100.2 kg [facility] (LUF/DAVID/SA) BMI (Body Mass 2019-10-07 20:41:00 38.1 kg/m2 [facility]) [facility] (LUF/DAVID/SA) Pulse Rate 2019-09-20 04:16:00 96 /min [facility] (LUF/DAVID/SA) Respiratory Rate 2019-09-20 04:16:00 9 /min [facility] (LUF/DAVID/SA) O2% BldC Oximetry 2019-09-20 04:16:00 96 % [facility] (LUF/DAVID/SA) BP Systolic 2019-09-20 04:16:00 97 mm[Hg] [facility] (LUF/DAVID/SA) BP Diastolic 2019-09-20 04:16:00 76 mm[Hg] [facility] (LUF/DAVID/SA) Body Temperature 2019-09-20 00:44:00 98 [degF] [facility] (LUF/DAVID/SA) Height 2019-09-20 00:39:00 65 [in_i] [facility] (LUF/DAVID/SA) Weight 2019-09-20 00:39:00 101.9 kg [facility] (LUF/DAVID/SA) BMI (Body Mass 2019-09-20 00:39:00 37.4 kg/m2 [facility]) [facility] (LUF/DAVID/SA) Pulse Rate 2019-08-17 04:31:00 81 /min [facility] (LUF/DAVID/SA) Respiratory Rate 2019-08-17 04:31:00 13 /min [facility] (LUF/DAVID/SA) O2% BldC Oximetry 2019-08-17 04:31:00 97 % [facility] (LUF/DAVID/SA) BP Systolic 2019-08-17 04:31:00 136 mm[Hg] [facility] (LUF/DAVID/SA) BP Diastolic 2019-08-17 04:31:00 75 mm[Hg] [facility] (LUF/DAVID/SA) Body Temperature 2019-08-17 02:23:00 97.6 [degF] [facility] (LUF/DAVID/SA) Height 2019-08-17 02:19:00 64 [in_i] [facility] (LUF/DAVID/SA) Weight 2019-08-17 02:19:00 100.6 kg [facility] (LUF/DAVID/SA) BMI (Body Mass 2019-08-17 02:19:00 38.3 kg/m2 [facility] Index) [facility] (LUF/DAVID/SA) Pulse Rate 2018-12-07 02:33:00 79 /min [facility] (LUF/DAVID/SA) Respiratory Rate 2018-12-07 02:33:00 15 /min [facility] (LUF/DAVID/SA) O2% BldC Oximetry 2018-12-07 02:33:00 96 % [facility] (LUF/DAVID/SA) BP Systolic 2018-12-07 02:33:00 120 mm[Hg] [facility] (LUF/DAVID/SA) BP Diastolic 2018-12-07 02:33:00 76 mm[Hg] [facility] (LUF/DAVID/SA) Body Temperature 2018-12-07 01:10:00 98.2 F [facility] (LUF/DAVID/SA) Height 2018-12-07 01:10:00 64 in [facility] (LUF/DAVID/SA) Weight Measured 2018-12-07 01:10:00 218.25 lbs [facility] janel [facility] (LUF/DAVID/SA) BMI (Body Mass 2018-12-07 01:10:00 37.7 [facility]2 [facility] (LUF/DAVID/SA) Pulse Rate 2018-09-30 19:40:00 70 /min [facility] (LUF/DAVID/SA) Respiratory Rate 2018-09-30 19:40:00 21 /min [facility] (LUF/DAVID/SA) O2% BldC Oximetry 2018-09-30 19:40:00 100 % [facility] (LUF/DAVID/SA) BP Systolic 2018-09-30 19:40:00 124 mm[Hg] [facility] (LUF/DAVID/SA) BP Diastolic 2018-09-30 19:40:00 88 mm[Hg] [facility] (LUF/DAVID/SA) Body Temperature 2018-09-30 19:23:00 99.3 F [facility] (LUF/DAVID/SA) Height 2018-09-30 19:23:00 66 in [facility] (F/DAVID/SA) Weight Measured 2018-09-30 19:23:00 212.52 lbs [facility] (LUF/DAVID/SA) BMI (Body Mass 2018-09-30 19:23:00 34.5 kg/m2 [facility] (LUF/DAVID/SA) Body Temperature 2018-09-01 13:59:00 98 F [facility] (LUF/DAVID/SA) Pulse Rate 2018-09-01 12:15:00 74 /min [facility] (LUF/DAVID/SA) Respiratory Rate 2018-09-01 12:15:00 16 /min [facility] (F/DAVID/SA) O2% BldC Oximetry 2018-09-01 12:15:00 98 % [facility] (LUF/DVAID/SA) BP Systolic 2018-09-01 12:15:00 131 mm[Hg] [facility] (LUF/DAVID/SA) BP Diastolic 2018-09-01 12:15:00 78 mm[Hg] [facility] (LUF/DAVID/SA) Height 2018-09-01 09:16:00 64 in [facility] (LUF/DAVID/SA) Weight Measured 2018-09-01 09:16:00 214.24 lbs [facility] (LUF/DAVID/SA) BMI (Body Mass 2018-09-01 09:16:00 37 kg/m2 [facility] Index) [facility] (LUF/DAVID/SA) Body Temperature 2018-05-13 10:58:00 99 F [facility] (LUF/DAVID/SA) Pulse Rate 2018-05-13 10:58:00 97 /min [facility] (F/DAVID/SA) Respiratory Rate 2018-05-13 10:58:00 18 /min [facility] (F/DAVID/SA) O2% BldC Oximetry 2018-05-13 10:58:00 98 % [facility] (F/DAVID/SA) BP Systolic 2018-05-13 10:58:00 131 mm[Hg] [facility] (LUF/DAVID/SA) BP Diastolic 2018-05-13 10:58:00 88 mm[Hg] [facility] (F/DAVID/SA) Height 2018-05-13 10:58:00 64 in [facility] (F/DAVID/SA) Weight Measured 2018-05-13 10:58:00 207.23 lbs [facility] (LUF/DAVID/SA) BMI (Body Mass 2018-05-13 10:58:00 35.8 [facility]) [facility] (LUF/DAVID/SA) Body Temperature 2017-12-24 08:04:00 98.7 F [facility] (F/DAVID/SA) Respiratory Rate 2017-12-24 08:04:00 18 /min [facility] (F/DAVID/SA) O2% BldC Oximetry 2017-12-24 08:04:00 98 % [facility] (F/DAVID/SA) BP Systolic 2017-12-24 08:04:00 126 mm[Hg] [facility] (F/DAVID/SA) BP Diastolic 2017-12-24 08:04:00 86 mm[Hg] [facility] (F/DAVID/SA) Weight Measured 2017-12-24 08:04:00 207.23 lbs [facility] (F/DAVID/SA) Body Temperature 2017-06-20 23:28:00 97.4 F [facility] (LUF/DAVID/SA) Respiratory Rate 2017-06-20 23:28:00 20 /min [facility] (LUF/DAVID/SA) O2% BldC Oximetry 2017-06-20 23:28:00 99 % [facility] (LUF/DAVID/SA) BP Systolic 2017-06-20 23:28:00 107 mm[Hg] [facility] (LUF/DAVID/SA) BP Diastolic 2017-06-20 23:28:00 76 mm[Hg] [facility] (LUF/DAVID/SA) Height 2017-06-20 23:28:00 64 in [facility] (LUF/DAVID/SA) Weight Measured 2017-06-20 23:28:00 217.15 lbs [facility] janel [facility] (LUF/DAVID/SA) BMI (Body Mass 2017-06-20 23:28:00 37.5 [facility] Index) [facility] (LUF/DAVID/SA) Procedures Procedure Date / Time Performing Clinician Source Performed POCT MOLECULAR FLU 2021-11-29 22:46:00 Mohan [facility] INS INFUS DEV LT BASILIC 2020-03-15 00:00:[address] [facility] PERQ [facility] (LUF/DAVID/SA) ULTRASONOGRAPHY LT UP EXT 2020-03-15 00:00:[address] [facility] VNS GUID [facility] (LUF/DAVID/SA) ROBOTIC LAP LYSIS OF 2020-03-02 12:56:[address] [facility] ADHESIONS [facility] (LUF/DAVID/SA) LAPAROSCOPY ENTEROLYSIS 2020-03-02 00:00:[address] [facility] SEPARATE PROCEDU [facility] (LUF/DAVID/SA) COLONOSCOPY FLX DX W/COLLJ 2020-02-26 00:00:[address] [facility] SPEC WHEN PFR [facility] (LUF/DAVID/SA) ROBOTIC RIGHT OOPHORECTOMY 2019-03-21 17:09:[address] [place] LUF (Right) [facility] (LUF/DAVID/SA) CYSTO RGP STENT PLACEMENT 2015-04-20 14:01:[address] [facility] LUF [facility] (LUF/DAVID/SA) CYSTO RGP STENT PLACEMENT 2015-04-20 14:01:00 [facility] Hysterectomy [facility] (LUF/DAVID/SA) Total thyroidectomy [facility] (LUF/DAVID/SA) section [facility] (LUF/DAVID/SA) ABDOMINAL ADHESIONS [facility] REMOVED [facility] (LUF/DAVID/SA) Extracorporeal shockwave [facility] lithotripsy [facility] (F/DAVID/SA) MULTIPLE CYSTECTOMYS DONE [facility] (LUF/DAVID/SA) MULTIPLE CYSTECTOMYS DONE [facility] (LUF/DAVID/SA) ABDOMINAL ADHESIONS [facility] (LUF/DAVID/SA) Appendectomy [facility] (F/DAVID/SA) Plan of Care Planned Activity Planned Date Details Comments Source Future Scheduled 2022-01-03 COVID-19 Vaccination [facility] [place] Test 06:07:35 (#1) [code = COVID-19 And louisa Cancer Vaccination (#1)] Center Future Scheduled 2021-12-22 COVID-19 Vaccination [facility] [place] Test 05:57:49 (#1) [code = COVID-19 MD And erson Cancer Vaccination (#1)] Center Encounters Start End Encounter Admission Attending Care Care Encounter Source Date/Time Date/Time Type Type Clinicians Facility Department ID 2021-07-27 [facility] 08:27:02 Josué 0127 [facility] 2021-07-26 Outpatient Nba, [facility] Common 14:20:31 Josué 1203 [facility] 2021-07-26 Outpatient Nba, STLMLC [facility] Common 14:05:52 Josué 1027 [facility] 2021-07-26 Outpatient Nba, STLMLC [facility] Common 12:01:28 Josué 1103 [facility] 2021-07-26 Outpatient Nba, STLMLC [facility] Common 11:56:42 Josué 1019 [facility] 2021-07-26 Outpatient Nba, STLMLC [facility] Common 11:49:38 Josué 09Emiliano [facility] 2021-07-26 [facility] 11:48:02 Josué 0922 [facility] 2021-07-26 Outpatient Nba, [facility] Common 11:47:47 Josué 0921 [facility] 2021-07-26 Outpatient Nba, [facility] Common 11:42:15 Josué 0901 [facility] 2021-07-26 Outpatient Nba, [facility] Common 11:32:09 Josué Lomeli20 [facility] 2021-11-29 2021-11-29 [facility] [id number] Univers 17:40:00 18:00:00 [facility] [id number] it y [facility] [id number] Jacques as SUE?BLEA [phone] [address] MEDICAL OFFICE BUILDING 2021-11-29 2021-11-29 [facility] [id number] Univers 17:40:00 17:40:00 AMEENA ity [facility] 2021-10-26 2021-10-26 Office GEOVANI Blas, [id number] Univers 09:45:00 10:47:06 Visit Praveen [id number] ity of [id number] [place] .[id number] MD Diaz [facility] 2021-10-26 2021-10-26 Office Wan [id number] Univers 09:45:00 10:47:06 Visit Praveen [id number] ity of [id number] Jeffrey .[id number] MD Diaz [facility] 2021-10-26 2021-10-26 Travel [id number] Univers 00:00:00 00:00:00 [id number] ity of [id number] [id number] .[id number] 084.8 .8 [facility] 2021-10-26 2021-10-26 Travel [id number] Univers 00:00:00 00:00:00 [id number] ity of [id number] [id number] .[id number] 084.8 .8 [facility] 2021-10-15 2021-10-15 ROSEMARIE 1 SHAMAA, [facility] [id number] 22:25:00 22:45:00 [facility] EKTABanner, Memor [facility] [address]ef[address] ([address], V/SA) [place] [address] 2021-10-15 2021-10-15 Inpatient [facility] [id number] [facility] 00:[facility] 00:00:00 [place] [id number] [facility], [id number] Memor ia [address] [id number] stefanie MEHTA (LUF/LI A[address], V/SA) [place] [address] 2021-10-15 2021-10-15 Inpatient [facility] [id number] 00:00:00 00:00:00 [place] [id number] [facility], [id number] Memor ia [address] [id number] l [address] (LUF/LI A[address], V/SA) [place] [address] 2021-08-07 2021-08-07 Emergency EM Tyree, HCAPM AMPARO [id number] [facility] 09:36:00 12:55:00 Olga [facility] 2021-08-07 2021-08-07 Emergency EM SANTINO Clements HCAPM [id number] [facility] 09:36:00 12:55:00 Olga 19 [facility] 2021-05-30 2021-05-30 ambulatory STLMLC STLMLC [id number] Common 00:00:00 00:00:00 [facility] 2021-05-29 2021-05-29 ambulatory STLMLC STLMLC [id number] Common 00:00:00 00:00:00 [facility] 2021-04-26 2021-04-26 Outpatient STLMLC STLMLC [id number] Common 00:00:00 00:00:00 [facility] 2021-04-23 2021-04-23 UNSPECIFIE 1 JANIA, STL EMD [id number] [facility] 00:46:00 02:08:00 [facility] ABDOMINAL Memori a PAIN l (LUF/LI V/SA) 2021-04-23 2021-04-23 Inpatient [facility] fb [id number] [facility] 00:00:00 00:00:00 [place] [id number] [facility], [id number] Memor ia [address] [id number] l [address] (LUF/LI A[address], V/SA) [place] [address] 2021-04-23 2021-04-23 Inpatient [facility] [id number] [facility] St 00:00:00 00:00:00 [place] [id number] [facility], [id number] Mem[facility] [address] [id number] l [place] (LUF/LI A[address], V/SA) [place] [address] 2021-03-24 2021-03-24 ANXIETY 1 [place], [facility] [id number] [facility] 10:25:00 12:27:00 DISORDER REHAN [facility] UNSPECIFIE [place], Memor ia D [address] ([address]F/LI A[address], V/SA) [place] [address] 2021-03-24 2021-03-24 Inpatient [facility] [id number] [facility] 00:00:00 00:00:00 [place] [id number] [facility], [id number] Memor ia [address] [id number] l [address] ([address]F/LI AVE, V/[place]) [place] [address] 2021-03-24 2021-03-24 Inpatient [facility] SERVICES e945 ff19-c [facility] 00[facility]:00 [place] [id number] [facility], [id number] Memor ia [address] [id number] l [address] (LUF/LI A[address], V/[place]) [place] [address] 2021-03-23 2021-03-23 Orders Nofies, 1.2.840.1 [id number] Univers 00:00:00 00:00:00 Only Viktoriya Charlton 89707.1.1 ity of 3.412.2.7 [place] .3.994671 MD .8 [facility] 2021-03-23 2021-03-23 Orders Nofies, 1.2.840.1 [id number] [facility] 00:00:00 00:00:00 Only Viktoriya Charlton 10422.1.1 ity of 3.412.2.7 [place] .3.089022 MD .8 [facility] 2021-03-10 2021-03-10 UTI SITE E RODRICK, [facility] [id number] 10:29:00 13:50:00 NOT [facility], Memori a [address] (LUF/LI AVE, V/SA) [place] [address] 2021-03-10 2021-03-10 Inpatient [facility] 16e7 6598-b [facility] 00:[facility]:00 00:00:00 [place] [id number]-[id number] [facility], [id number] [facility] [address] [id number] l [address] (LUF/LI AVE, V/SA) [place] [address] 2021-03-10 2021-03-10 Inpatient [facility] 518c 3339-c [facility] 00:[facility]:00 00:00:00 [place] [id number] [facility], [id number] Memor ia [address] [id number] l [place] (LUF/LI AVE, V/[place]) [place] [address] 2021-02-23 2021-02-23 RIGHT E [facility] [id number] [facility] 08:15:00 12:44:00 LOWER [facility] PAIN [address] (LUF/LI AVE, V/SA) [place] [address] 2021-02-23 2021-02-23 Inpatient [facility] 89b5 d1de-[address] [facility] 00:00:00 00:00:00 [place] [id number]-[id number] [facility], [id number] [facility] [address] [id number] l [place] (LUF/LI AVE, V/[place]) [place] [address] 2021-02-23 2021-02-23 Inpatient [facility] 8500 [id number] 00:00:00 00:00:00 [place] [id number]-[id number] [facility], [id number] [facility] [address] [id number] l [address] (LUF/LI AVE, V/SA) [place] [address] 2021-01-10 2021-01-10 CALCULUS E JANIA, [facility] [id number] [facility] 00:21:00 03:06:00 OF KIDNEY SETH [facility] [address] (LUF/LI AVE, V/SA) [place] [address] 2021-01-10 2021-01-10 Inpatient [facility] ff0d 2205-c [facility] 00:00:00 00:00:00 [place] [id number] [facility], [id number] [facility] [address] [id number] l [address] (LUF/LI AVE, V/SA) [place] [address] 2021-01-10 2021-01-10 Inpatient [facility] deee fe83-e [facility] 00:[facility]:00 00:00:00 [place] [id number] [facility], [id number] Memor ia [address] [id number] l [address] (LUF/LI AVE, V/SA) [place], [place] [address] 2020-12-27 2020-12-27 Emergency [facility] Zarina [id number] [address] [place] 00:00:00 00:00:[address] 2020-12-22 2020-12-22 Outpatient 3 LONI MURILLO TIC [id number] 09:00:00 09:00:00 SKYE lucia Memoria l (LUF/LI V/SA) 2020-12-13 2020-12-13 Emergency EM Ana, [facility] [id number] [facility] 01:53:00 06:36:00 Tangela [address] [facility] 2020-12-12 2020-12-12 RIGHT Jake COTTON, [facility] 63318 72841 [facility] 12:33:00 14:00:00 [facility], Memoria PAIN [address] (LUF/LI AVE, V/SA) [place] [address] 2020-12-12 2020-12-12 Inpatient [facility] e2c0 cb47-b [facility] 00:00:00 00:00:00 [place] [id number]-[id number] [facility], [id number] Memor ia [address] [id number] l [address] (LUF/LI AVE, V/SA) [place], [place] [address] 2020-12-12 2020-12-12 Inpatient [facility] 43ed f7fe-4 [facility] 00:00:00 00:00:00 [place] [id number] [facility], [id number] Memor ia [address] 70ade3 l [address] (LUF/LI A[address], V/SA) [place], [place] [address] 2020-12-08 2020-12-08 SHREYAS SOTOMAYOR, [facility] [id number] [facility] 09:44:00 12:26:00 D WYATT [facility], Memori a PAIN [address] (LUF/LI AVE, V/SA) [place] [address] 2020-12-08 2020-12-08 Inpatient [facility] 6a3f a794-a [facility] 00:00:00 00:00:00 [place] [id number] [facility], [id number] Memor ia [address] [id number] l [address] (LUF/LI AVE, V/SA) [place] [address] 2020-11-25 2020-11-25 UNSPECIFIE [facility] [id number] [facility] 00:13:00 00:30:00 [facility] [place], Memori a PAIN [address] (LUF/LI AVE, V/SA) [place] [address] 2020-11-25 2020-11-25 Inpatient [facility] 3041 db6a-[address] [facility] 00:00:00 00:00:00 [place] [id number] [facility], [id number] Memor ia [address] [id number] l [address] (LUF/LI AVE, V/SA) [place] [address] 2020-11-25 2020-11-25 Inpatient [facility] a3eb ed11-a [facility] 00:00:00 00:00:00 [place] [id number] [facility], [id number] Memor ia [address] [id number] l [address] (LUF/LI AVE, V/SA) [place] [address] 2020-11-21 2020-11-21 ENDOMETRIO 1 [facility] [id number] [facility] 07:14:00 09:53:00 SIS [facility] U[place]PECIFIE [place], Memor ia D [address] (LUF/LI AVE, V/SA) [place] [address] 2020-11-21 2020-11-21 Inpatient [facility] 90f0 278b-[address] 00:00:00 00:00:00 [place] [id number] [facility], 4bb-[id number] Memor ia [address] [id number] l [place] (LUF/LI AVE, V/SA) [place] [facility] 2020-11-21 2020-11-21 Inpatient [facility] 3b21 [id number] 00:00:00 00:00:00 [place] 30a-405e-8 [facility], [id number] Memor ia [address] [id number] l [address] (LUF/LI AVE, V/[place]) [place] [address] 2020-11-14 2020-11-[address] [facility] [id number] [facility] [facility] 09:27:00 14:37:00 UNS [facility] WITHOUT Memoria BLEEDING l (LUF/LI V/SA) 2020-11-14 2020-11-14 Inpatient [facility] d4fe d3e2-[address] 00:00:00 00:00:00 [place] 3cf-[id number] [facility], [id number] Memor ia [address] [id number] l [address] (LUF/LI AVE, V/[place]) [place] [address] 2020-11-14 2020-11-14 Inpatient [facility] 324e 65b9-b [facility] 00:00:00 00:00:00 [place] [id number] [facility], [id number] Memor ia [address] [id number] l [address] (LUF/LI AVE, V/SA) [place], [place] [address] 2020-11-08 2020-11-08 OTHER E COTTON, [facility] [id number] [facility] 08:04:00 13:13:00 CHRONIC [facility], Memoria [address] ([address]F/LI A[address], V/SA) [place] [address] 2020-11-08 2020-11-08 Inpatient [facility] 8079 b52c-c [facility] 00:00:00 00:00:00 [place] ed8-4ae3-8 [facility], [id number] Memor ia [address] [id number] l [address] (LUF/LI AVE, V/[place]) [place] [address] 2020-11-08 2020-11-08 Inpatient [facility] 0f07 dc59-[address] [facility] 00:00:00 00:00:00 [place] [id number] [facility], [id number] Memor ia [address] [id number] l [address] (LUF/LI AVE, V/[place]) [place] [address] 2020-11-08 2020-11-08 Inpatient [facility] 40b4 e14c-[address] [facility] 00:00:00 00:00:00 [place] [id number] [facility], [id number] Memor ia [address] [id number] l [address] (LUF/LI AVE, V/SA) [place], [place] [address] 2020-11-01 2020-11-01 NAUSEA Jake MUÑOZ, [facility] [id number] [facility] 00:27:00 03:55:00 WITH CLEMENT [facility], Memoria UNSPECIFIE [address] D [address] (LUF/LI AVE, V/SA) [place], [place] [address] 2020-11-01 2020-11-01 Inpatient [facility] 1ec3 64c1-c [facility] 00:00:00 00:00:00 [place] [id number] [facility], [id number] Memor ia [address] [id number] l [address] (LUF/LI AVE, V/[place]) [place] [address] 2020-11-01 2020-11-01 Inpatient [facility] 79c0 [id number] [facility] 00:00:00 00:00:00 [place] [id number] [facility], [id number] Memor ia [address] [id number] l [address] (LUF/LI AVE, V/[place]) [place] [address] 2020-10-04 2020-10-05 OTHER E RODRICK, [facility] [address] [facility] 23:32:00 01:00:00 CHRONIC JUAN [facility], Memoria [address] (LUF/LI AVE, V/SA) [place], [facility]04 2020-10-04 2020-10-04 Inpatient [facility] b016 f3f5-a [facility] 00:00:00 00:00:00 [place] [id number] [facility], [id number] Memor ia [address] [id number] l [address] (LUF/LI A[address], V/SA) [place] [address] 2020-10-04 2020-10-04 Inpatient [facility] ea96 [id number] 00:00:00 00:00:00 [place] 25c-4997-b [facility], [id number] Memor ia [address] [id number] l [place] (LUF/LI AVE, V/SA) [place] [address] 2020-09-18 2020-09-18 OTHER E [facility] [id number] 01:00:00 04:44:00 CHRONIC [place] [facility] [address] (LUF/LI AVE, V/SA) [place] [address] 2020-09-18 2020-09-18 Inpatient [facility] b80a 7ee5-[address] 00:00:00 00:00:00 [place] [id number]-4 [facility], [id number] Memor ia [address] [id number] l [address] (LUF/LI AVE, V/[place]) [place] [address] 2020-09-18 2020-09-18 Inpatient [facility] 1a33 0198-a [facility] 00:00:00 00:00:00 [place] [id number] [facility], [id number] Memor ia [address] [id number] l [address] ([address]F/LI AVE, V/SA) [place] [address] 2020-09-12 2020-09-12 ENDOMETRIO E SANACIUK, [facility] [id number] [facility] 00:46:00 02:38:00 SIS JUAN [facility], Memor ia D [address] (LUF/LI AVE, V/SA) [place] [address] 2020-09-12 2020-09-12 Inpatient [facility] 726d 153b-a [facility] 00:00:00 00:00:00 [place] h2w-0283-6 [facility], [id number] Memor ia [address] [id number] l [place] (LUF/LI AVE, V/SA) [place] [address] 2020-09-12 2020-09-12 Inpatient [facility] 9a2d b59c-c [facility] 00:00:00 00:00:00 [place] [id number] [facility], [id number] Memor ia [address] 655cce l [place] (LUF/LI AVE, V/SA) [place] [address] 2020-08-22 2020-08-22 OTHER E RODRICK, [facility] [address] [facility] 01:13:00 03:24:00 CHRONIC [facility] [address] (LUF/LI AVE, V/SA) [place] [address] 2020-08-22 2020-08-22 Inpatient [facility] 7a1d d2a9-[address] 00:00:00 00:00:00 [place] [id number] [facility], [id number] Memor ia [address] [id number] l [place] (LUF/LI AVE, V/SA) [place] [address] 2020-08-22 2020-08-22 Inpatient [facility] 53d3 2542-f [facility] 00:[facility]:00 00:00:00 [place] 72a-4479-9 [facility], [id number] Memor ia [address] [id number] l [place] (LUF/LI AVE, V/SA) [place] [address] 2020-08-06 2020-08-06 Inpatient Jake HOODLETA, [facility] [id number] 01:21:00 03:35:00 [facility] [address] (LUF/LI AVE, V/SA) [place] [address] 2020-08-06 2020-08-06 Inpatient [facility] 07b7 067c-a [facility] 00:00:00 00:00:00 [place] [id number] [facility], [id number] Memor ia [address] [id number] l [address] (LUF/LI AVE, V/SA) [place] [address] 2020-07-19 2020-07-19 RIGHT Jake COTTON, [facility] [address] [facility] 07:50:00 11:20:00 [facility] Memoria PAIN [address] (LUF/LI AVE, V/SA) [place] [address] 2020-07-19 2020-07-19 Inpatient [facility] 625d 6050-c [facility] 00:00:00 00:00:00 [place] 92c-[id number] [facility], [id number] Memor ia [address] [id number] l [address] (LUF/LI AVE, V/SA) [place] [address] 2020-07-19 2020-07-19 Inpatient [facility] 0f28 [id number] [facility] 00:00:00 00:00:00 [place] bbb-4c99-b [facility], [id number] Memor ia [address] [id number] l [address] (LUF/LI AVE, V/SA) [place] [address] 2020-07-05 2020-07-05 SKYLAR MENSAH, [facility] [address] [facility] 02:42:00 05:00:00 CHRONIC JUAN [place] [facility], Memoria [address] (LUF/LI AVE, V/SA) [place] [address] 2020-07-05 2020-07-05 Inpatient [facility] 525e 4189-f [facility] 00:00:00 00:00:00 [place] bff-495f-b [facility], [id number] Memor ia [address] 7ec68b l [address] ([address]F/LI A[address], V/SA) [place] [address] 2020-07-05 2020-07-05 Inpatient [facility] c54b 2c2e-e [facility] 00:[facility]:00 00:00:00 [place] [id number] [facility], [id number] Memor ia [address] [id number] l [place] (LUF/LI A[address], V/SA) [place] [address] 2020-06-10 2020-06-10 Outpatient STLMLC STLMLC [id number] Common 00:00:00 00:00:00 [facility] 2020-06-07 2020-06-07 Inpatient 1 YURY, [facility] [id number] 12:56:00 19:04:00 [facility] [address] (LUF/LI AVE, V/SA) [place] [address] 2020-06-07 2020-06-07 Inpatient [facility] 5603 9727-e [facility] 00:00:00 00:00:00 [place] aaa-[id number] [facility], [id number] Memor ia [address] [id number] l [place] (LUF/LI AVE, V/SA) [place] [address] 2020-05-31 2020-05-31 Inpatient E YURY, [facility] [id number] [facility] 09:31:00 14:13:00 [facility] [address] (LUF/LI A[address], V/SA) [place] [address] 2020-05-10 2020-05-10 Outpatient STLMLC STLMLC [id number] Common 00:00:00 00:00:00 [facility] 2020-05-09 2020-05-09 Outpatient STLMLC STLMLC [id number] Common 00:00:00 00:00:00 [facility] 2020-05-05 2020-05-05 Outpatient STLMLC STLMLC [id number] Common 00:00:00 00:00:00 [facility] 2020-05-02 2020-05-02 Outpatient STLMLC STLMLC [id number] Common 00:00:00 00:00:00 [facility] 2020-05-02 2020-05-02 Outpatient STLMLC STLMLC [id number] Common 00:00:00 00:00:00 [facility] 2020-04-29 2020-04-29 Outpatient STLMLC STLMLC [id number] Common 00:00:00 00:00:00 [facility] 2020-04-25 2020-04-25 LEFT LOWER E [facility] [id number] 16:46:00 21:30:00 [facility] [address] ([address]F/LI A[address], V/SA) [place] [address] 2020-04-22 2020-04-22 Outpatient STLMLC STLMLC [id number] Common 00:00:00 00:00:00 [facility] 2020-04-20 2020-04-20 PROC&TX [facility] [id number] [facility] 15:39:00 16:03:00 NOT [facility] OUT PT [address] LEAVE [address] (LUF/LI AVE, V/SA) [place] [address] 2020-04-20 2020-04-20 Outpatient STLMLC STLMLC [id number] Common 00:00:00 00:00:00 [facility] 2020-04-20 2020-04-20 Outpatient STLMLC STLMLC [id number] Common 00:00:00 00:00:00 [facility] 2020-04-15 2020-04-15 Outpatient STLMLC STLMLC [id number] Common 00:00:00 00:00:00 [facility] 2020-04-13 2020-04-13 Outpatient STLMLC STLMLC [id number] Common 00:00:00 00:00:00 [facility] 2020-04-12 2020-04-12 Outpatient STLMLC STLMLC [id number] Common 00:00:00 00:00:00 [facility] 2020-04-11 2020-04-11 Outpatient STLMLC STLMLC [id number] Common 00:00:00 00:00:00 [facility] 2020-04-08 2020-04-08 Outpatient STLMLC STLMLC [id number] Common 00:00:00 00:00:00 [facility] 2020-04-06 2020-04-06 Outpatient STLMLC STLMLC [id number] Common 00:00:00 00:00:00 [facility] 2020-04-04 2020-04-04 Outpatient STLMLC STLMLC [id number] Common 00:00:00 00:00:00 [facility] 2020-03-31 2020-03-31 Outpatient STLMLC STLMLC [id number] Common 00:00:00 00:00:00 [facility] 2020-03-29 2020-03-29 Outpatient GEOVANI BLAS [facility] [id number] MD 00:00:00 00:00:00 PRAVEEN payton 2020-03-29 2020-03-29 Outpatient STLMLC STLMLC [id number] Common 00:00:00 00:00:00 [facility] 2020-03-28 2020-03-28 Outpatient STLMLC STLMLC [id number] Common 00:00:00 00:00:00 [facility] 2020-03-22 2020-03-22 Outpatient STLMLC STLMLC [id number] Common 00:00:00 00:00:00 [facility] 2020-03-21 2020-03-21 Outpatient STLMLC STLMLC [id number] Common 00:00:00 00:00:00 [facility] 2020-03-20 2020-03-20 FEDE COTTON, [facility] [id number] 17:08:00 22:56:00 ABDOMINAL REHAN [facility] PAIN [place], [facility] UNSPECIFIE [address] stefanie [address] (LUF/LI AVE, V/SA) [place] [address] 2020-03-14 2020-03-17 CELLULITIS E RIVERA, [facility] [id number] 14:54:00 11:30:00 OF [place] [place] [address] ([address], V/[place]) [place] [address] 2020-03-03 2020-03-03 [facility] [id number] Common 13:33:00 13:33:00 Clinics [facility] 2020-03-02 2020-03-02 FE RYAN WOLFE, [facility] [id number] [facility] 05:58:00 15:35:00 PERITON LIZBETH [facility] POSTINFECT [address] ([address]/LI A[address], V/SA) [place] [address] 2020-03-02 2020-03-02 Outpatient [facility] [id number] Common 00:00:00 00:00:00 [facility] 2020-03-01 2020-03-01 [facility] [id number] Common 09:15:00 09:15:00 [facility] 2020-02-29 2020-02-29 [facility] [id number] Common 09:30:00 09:30:00 [facility] 2020-02-25 2020-02-27 LOWER E YURY, [facility] [place] [id number] 13:21:00 12:09:00 ABDOMINAL [facility] UNSPECIFIE [address] ([address]F/LI A[address], V/SA) [place] [address] 2020-02-25 2020-02-25 UNSPECIFIE E RODRICK, [facility] [id number] [facility] 00:40:00 05:00:00 D JUAN [facility] a PAIN [address] ([address], V/SA) [place] [address] 2020-01-25 2020-01-25 LOW BACK 1 COTTON, [facility] [place] [id number] [facility] 11:28:00 13:15:[address] [facility] [address] ([address], V/SA) [place] [address] 2020-01-18 2020-01-18 Outpatient [facility] [id number] Common 11:45:00 11:45:00 Clinics [facility] 2019-12-09 2019-12-09 OTHER E [facility] [place] [id number] 03:03:00 05:08:00 [place] [facility] [place], Memoria [address] ([address], V/SA) [place] [address] 2019-11-24 2019-11-24 UNSPECIFIE E [facility] [place] [id number] 00:31:00 05:30:00 [place] [facility] [place] [place], Memori a PAIN [address] ([address] A[address], V/SA) [place] [address] 2019-10-07 2019-10-07 RIGHT 1 YURY, [facility] [place] [id number] 20:35:00 23:10:00 LOWER [facility] QUADRANT [place] [address] ([address], V/SA) [place] [address] 2019-09-20 2019-09-20 RIGHT 1 YURY, [facility] [place] [id number] [facility] 00:33:00 04:23:00 LOWER [facility] [place] [place] [address] ([address] A[address], V/SA) [place] [address] 2019-08-17 2019-08-17 UNSPECIFIE 1 RIVERA, [facility] [id number] 02:18:00 04:45:00 D [place] Lu [place]OM[place]AL [place], Memori a PAIN [address] ([address], V/SA) [place] [address] 2019-04-22 2019-04-22 Outpatient [facility] [id number] Common 12:03:00 12:03:00 Clinics [facility] 2019-04-14 2019-04-14 Outpatient [facility] [id number] Common 16:12:00 16:12:00 Clinics [facility] 2019-04-06 2019-04-06 Outpatient [facility] [id number] Common 12:16:00 12:16:00 Clinics [facility] 2019-03-31 2019-03-31 Outpatient [facility] [id number] Common 14:00:00 14:00:00 Clinics [facility] 2018-12-07 2018-12-07 UNSPECIFIE 1 QUINTIN BRITO [facility] [id number] [facility] St 01:06:00 04:45:00 D [place] Luke s CYST RIGHT [facility] ia SIDE [address] ([address], V/SA) [place] [address] 2018-10-29 2018-10-29 N-PRSS CHR [place], [facility] [id number] [facility] St 06:59:00 23:59:00 ULCR SKIN [place] Luke s OTH [facility] [address] ([address], V/SA) [place] [address] 2018-10-22 2018-10-22 N-PRSS CHR [place], [facility] [id number] [facility] 07:20:00 23:59:00 ULCR SKIN [place] Luke s [place] [facility] [address] V[address]SA) [place] [address] 2018-10-15 2018-10-15 N-PRSS CHR O [place], [facility] [id number] [facility] St 07:08:00 23:59:00 ULCR SKIN MIKY [facility] [address], V/SA) [place] [address] 2018-09-30 2018-10-01 INFCT FOL 1 SHABNAM, [facility] [id number] [facility] St 18:46:00 01:05:00 PRC SUPF DIMAS [facility] SIT INIT [address], V[address]SA) [place] [address] 2018-09-01 2018-09-01 OTH 1 WANDA, [facility] [id number] 09:12:00 14:00:00 NONINFL CLEMENT [facility] D/O OVARY [place], Memori a TUBE&BRD [address], V/SA) [place] [address] 2018-05-13 2018-05-13 Inpatient 1 WANDA, [facility] [id number] 10:52:00 13:46:[address] [facility] [address], V/SA) [place] [address] 2017-12-24 2017-12-24 UNSPECIFIE 1 QUINTIN BRITO [facility] [id number] [facility] 07:51:00 13:52:00 D OVARIAN [facility] s CYST RIGHT [place] SIDE [address], V[address]SA) [place] [address] 2017-06-20 2017-06-21 HYDRONPHRO 1 RODRICK, [facility] [id number] 23:01:00 03:55:00 S JUAN [facility] RENL&URETR [place] L CALCUL [address], V[address]SA) [place] [address] 2017-05-13 2017-05-13 OTHER 3 MERLE, [facility] [id number] 15:40:00 23:59:00 FATIGUE ASA [facility] [address] V[address]) [place] [address] Results Test Description Test Time Test Comments Results Result Comments Source POCT MOLECULAR FLU 2021-11-29 22:58:14 Test Item Value Reference Range Interpretation Comme nts POCT Molecular FluA (test code = 05278-4) Negative Negative POCT Molecular FluB (test code = 29947-7) Negative Negative Lab Interpretation (test code = 71768-5) Normal [facility] (LIVER)2021-10-16 13:57:00 Test Item Value [...] (test code = 0.2 mg/dl 0.0-1.1 IBIL) [id number] 13:57:00 Test Item Value Reference Range Interpretation Comments Lipase (test code = LIPA) 114 U/L 73-393 AMYLASE, [id number] 13:57:00 Test Item Value Reference Range Interpretation Comments Amylase (test code = AMYL) 51 U/L 25-115 STAT LAB CHEM [id number] 22:45:00 Test Item Value Reference Range Interpretation [...] 24.0-29.0 L STAT LAB CBC WITH AUTO [id number] 22:43:00 Test Item Value Reference Range Interpretation [...] = IG%) 0.2 % 0.0-0.4 HEPATIC FUNCTION [id number] 13:03:00 Test Item Value Reference Range Interpretation [...] 96 Unit/L 45-117 N code = ALKP) [id number] 13:03:00 Test Item Value Reference Range Interpretation Comments LIPASE (test code = LIP) 83 Unit/L 114-286 L BASIC METABOLIC [id number] 13:03:00 Test Item Value Reference Range Interpretation [...] 8.5-10.1 N UA RFLX MICR CULT IF [id number] 12:44:00 Test Item Value Reference Range Interpretation [...] OF URINE: CLEAN CATCH- CT ABD PELVIS W/[id number] 12:27:00 [facility] 1985 Sex: F Name: LAUREN BETH [facility] : 1985 Age/S: 36 / F [id number] Unit #: [id number] Loc: [place] [address] Phys: Marco Hilton NP Acct: [id number] Dis Date: Status: REG ER PHONE #: [phone] Exam Date: 08/07/2021 1223 FAX #: Reason: LLQ ABD PAIN EXAMS: CPT: [id number] CT ABD PELVIS W/CONT 94754 EXAM: CT ABDOMEN AND PELVIS WITH CONTRAST. [...] 1 Signed Report (CONTINUED) Name: LAUREN BETH : 1985 Age/S: 36 / F [address] Unit #: [id number] Loc: [place] [address] Phys: Marco Hilton NP Acct: [id number] Dis Date: Status: REG ER PHONE #: [phone] Exam Date: 08/07/2021 1223 FAX #: Reason: LLQ ABD PAIN EXAMS: CPT: [id number] CT ABD PELVIS W/CONT 09900 <Continued> at 1227 Reported and signed by: Alma Cartwright M.D. CC: Olga Clements DO; Marco Hilton NP Technologist:RT Danyelle(R) CTDI: DLP: Trnscb Date/Time: 08/07/2021 (1227) VereniceMD16 Orig Print D/T: S: 08/07/2021 (3594) PAGE 2 Signed ReportCBC W/AUTO [id number] 12:23:00 Test Item Value Reference Range Interpretation [...] DIFF/SCN CRITERIA = MDIFF) COR[facility]AVIRUS 2019 [facility]2021-03-24 17:04:00 Test Item Value Reference Range Interpretation [...] rapid, real t carlito PCR (RT-PCR) molec ranjana test used for t he qualitative det ection of nucleic acid from the SARS-CoV-2 in upper respirato ry specimens colle cted from individual s suspected of CO VID-19. For questions regarding your test results, please contact the [facility] at [phone]. [id number] 12:37:00 Test Item Value Reference Range Interpretation [...] 0.5-1.3 code = CREA) EGFR if >60 Welsh (test code mL/min/1.73m\\ = EGFRAA) S\\2 EGFR if Non- >60 Estimate d Glomerular Welsh (test code mL/min/1.73m\\ Filtrat ion Rate (eGFR) [...] of c hronic kidney failure. STAT LAB [id number] 12:11:00 Test Item Value Reference Range Interpretation Comments Troponin-I (test 0.00 ng/ml 0.00-0.08 The 99th Pe rcentile URL is code = TROP) 0.08 ng/mL for the Johnson iStat Troponin I. The Joint Society of Cardiology/Amer ican College of Card iology (ESC/ACC) and t yuan National Academy of Clin ical Biochemistry St andards of Laboratory Prac tices (NACB) recommen ds that [...] 24 hours after the clini felipa event. PT AND [id number] 12:09:00 Test Item Value Reference Range Interpretation Comments Protime (test code 9.5 seconds 9.5-12.1 = PT) INR (test code = 0.9 0.9-1.1 INR results are intended INR) ONLY to monitor Oral Anticoagulant t herapy in stablized pa tients. The INR Therape utic Range is 2.0 - 3.0 Patients with a mechanical hear t, the INR Range is 2. 5 - 3.5 [id number] 12:09:00 Test Item Value Reference Range Interpretation Comments aPTT (test code = PTT) 22.3 seconds 23.9-30.7 L STAT LAB CBC WITH AUTO [id number] 11:57:00 Test Item Value Reference Range Interpretation [...] 0.3 % 0.0-0.4 XR CHEST AP/PA 1 [id number] 11:33:32 [facility]/SA)Name: LAUREN BETH : 1985 Sex: FProcedure: XR CHEST AP/PA 1 VIEWOrder Date: 03/24/2021 10:57 AMOrdering Provider: REHAN COTTONClinical Indication: [id number]: DyspneaComparison: September 30, 2018Findings:Cardiac size is normal.Pulmonary vasculature is normal.Mediastinal contour is normal.Aortic contour is normal.No acute infiltrates or effusions.There is no mass or pneumothorax.There is no evidence of active tube rculosis.There is no acute skeletal abnormality.Impression: Negative AP view of the chest.This finalreport was electronically signed by Dr Farzad Dewitt MD 111:28 AMDictated By: AMANDA DEWITT.Date: 03/24/2021 11:28CULTURE, [id number] 08:00:00Specimen: Urine SpecimensCollected: 03/10/2021 11:50 Status: Final Last Updated: 03/12/2021 08:00 CULTURE (Final) (Final) Very Few Mixed Body Gabriela Isolated No Pathogens IsolatedURINALYSIS WITH [id number] 12:57:00 Test Item Value Reference Range Interpretation Comments Color (test code = Light-Yellow UCOLR) Clarity (test code = Cloudy UCLAR) Glucose (test code = NEGATIVE NEGATIVE N UGLUC) Bilirubin (test code NEGATIVE NEGATIVE N = UBILI) Ketones (test code = NEGATIVE NEGATIVE N UKET) Specific [place] 1.015 1.005-1.030 A (test code = USPGR) Blood (test code = NEGATIVE NEGATIVE N UBLD) PH (test code = UPH) 7.0 4.5-8.0 A Protein (test code = NEGATIVE NEGATIVE N UPROT) Urobilinogen (test 0.2 See_Comment N [Automat ed message] code = U UROB) The system [facility] generated this result transmit michael reference range [...] = NSE) STAT LAB CBC WITH AUTO [id number] 12:10:00 Test Item Value Reference Range Interpretation [...] 0.8 % 0.0-0.4 H STAT LAB CHEM [id number] 12:08:00 Test Item Value Reference Range Interpretation [...] = CREA) 0.5 mg/dl 0.6-1.3 L CULTURE, [id number] 08:26:00Specimen: Urine SpecimensCollected: 02/23/2021 08:35 Status: Final Last Updated: 02/24/2021 08:26 CULTURE (Final) (Final) Many Mixed Body Gabriela Isolated No Pathogens IsolatedCT ABDOMEN/PELVIS W/[id number] 11:40:43 [facility] ([facility]/SA)Name: LAUREN BETH : 1985 Sex: FProcedure: CT ABDOMEN/PELVIS W/CONTRASTOrder date: 02/23/2021 10:08 AMOrdering Provider: REHAN Farrellinical Indication: [id number]: Right lower quadrant painComparison: November 14, 2020Technique: [...] MD 111:35 AMDictated By: WILEY VELÁZQUEZDate: 02/23/2021 11:[id number] 10:44:00 Test Item Value Reference Range Interpretation Comments Lipase (test code = LIPA) 86 U/L 73-393 URINALYSIS WITH [id number] 08:58:00 Test Item Value Reference Range Interpretation Comments Color (test code = Light-Yellow UCOLR) Clarity (test code = Clear UCLAR) Glucose (test code = NEGATIVE NEGATIVE N UGLUC) Bilirubin (test code NEGATIVE NEGATIVE N = UBILI) Ketones (test code = NEGATIVE NEGATIVE N UKET) Specific [place] 1.020 1.005-1.030 A (test code = USPGR) Blood (test code = NEGATIVE NEGATIVE N UBLD) PH (test code = UPH) 6.0 4.5-8.0 A Protein (test code = NEGATIVE NEGATIVE N UPROT) Urobilinogen (test 0.2 See_Comment N [Automat ed message] code = U UROB) The system [facility] generated this result transmit michael reference range [...] = SQEP) STAT LAB CBC WITH AUTO [id number] 08:52:00 Test Item Value Reference Range Interpretation [...] IG%) 0.3 % 0.0-0.4 STAT LAB CHEM [id number] 08:52:00 Test Item Value Reference Range Interpretation [...] mg/dl 0.6-1.3 STAT LAB CBC WITH AUTO [id number] 02:37:00 Test Item Value Reference Range Interpretation [...] A value of 55 was entered by [id number] on 01/10/2021 02:3 7 Lymphocytes (test 43 % 13-42 H No previou s value code = LYMPH) was reported. A value of 43 was entered by [id number] on 01/10/2021 02:3 7 Monocytes (test 1 % 4-14 L No previous value code = MONOS) was reported. A value of 1 was entered by [id number] on 01/10/2021 02:3 7 Basophils (test 1 % 0-1 No previous value code = BASO) was reported. A value of 1 was entered by [id number] on 01/10/2021 02:3 7 Normal Morphology Normal WBC RBC Normal RBC \\T\\ N No pre vious value (test code = NRCM) and Platelet WBC was repor michael. A Morphology Morphology,Normal value of N ormal WBC RBC and WBC RBC and Platelet Platelet Morphology Morphology was entered by [id number] on 01/10/2021 02:3 7 AMYLASE, [id number] 02:14:00 Test Item Value Reference Range Interpretation Comments Amylase (test code = AMYL) 46 U/L 25-115 [id number] 02:14:00 Test Item Value Reference Range Interpretation Comments Lipase (test code = LIPA) 115 U/L 73-393 URINALYSIS WITH [id number] 02:07:00 Test Item Value Reference Range Interpretation Comments Color (test code = Light-Yellow UCOLR) Clarity (test code = Cloudy UCLAR) Glucose (test code = NEGATIVE NEGATIVE N UGLUC) Bilirubin (test code NEGATIVE NEGATIVE N = UBILI) Ketones (test code = NEGATIVE NEGATIVE N UKET) Specific [place] 1.025 1.005-1.030 A (test code = USPGR) Blood (test code = NEGATIVE NEGATIVE N UBLD) PH (test code = UPH) 6.0 4.5-8.0 A Protein (test code = NEGATIVE NEGATIVE N UPROT) Urobilinogen (test 0.2 See_Comment N [Automat ed message] code = U UROB) The system [facility] generated this result transmit michael reference range [...] (test code = NSE) STAT LAB CHEM [id number] 01:50:00 Test Item Value Reference Range Interpretation [...] 0.6 mg/dl 0.6-1.3 - CT ABD PELVIS [id number] 03:46:00 [facility]UDONNE WhitingDAVIDE Charl[place] : 1985 Sex: F FAX: Annemarie Tesfaye [phone] [place]: St: REG Name: LAUREN BETH [facility] [place] : 1985 Age/S: 35/F [address] Unit: [id number] Loc: [place] [address] Phys: Zan Tesfaye 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 at 0346 Reported and signed by: Neo Huber MD PAGE 1 Signed Report (CONTINUED) FAX: Annemarie Tesfaye [phone] [place]: St: REG -- Name: [facility]UREN BETH [facility]ari Barros : 1985 Age/S: 35/F [address] Unit: [id number] Loc: [place] [address] Phys: Annemarie Tesfaye NP Acct: Gerald [id number] Dis Date: Status: REG ER PHONE #: [phone] Exam Date: 12/13/2020 0325 FAX #: [phone] Reason: DIFFUSE ABD PAIN WORSE RLQ, HX APPY, ROSE EXAMS: CPT CODE: [id number] CT ABD PELVIS W/CONT 17051 <Continued> CC: Annemarie Tesfaye NP Technologist: PAMELA KRISHNAMURTHY; Jessi Guillory; JAIRO SANCHEZ JR Trnscrd Dt/Tm: 12/13/2020 (0346) [email or web address] Orig Print D/T: S: 12/13/2020 (0349 PAGE 2 Signed ReportCOMPREHENSIVE METABOLIC [id number] 03:32:00 Test Item Value Reference Range Interpretation [...] bias m ay occur for patients ta milday Eltrombopag(a b one marrow stimulan t used [...] U/L 38-126 N (test code = ALKP) [id number] 03:32:00 Test Item Value Reference Range Interpretation Comments LIPASE (test code = LIP) 82 U/L 23-300 N BEDSIDE [id number] 03:24:00 Test Item Value Reference Range Interpretation Comments BEDSIDE CREATININE (test code = 0.60 mg/dL 0.51-1.19 N CREATBED) CBC W/AUTO [id number] 03:14:00 Test Item Value Reference Range Interpretation [...] 0.0-0.1 N UA RFLX MICR CULT IF [id number] 02:59:00 Test Item Value Reference Range Interpretation [...] OF URINE: VOIDEDSTAT LAB CBC WITH AUTO [id number] 15:12:00 Test Item Value Reference Range Interpretation [...] 82 on 12/12/2020 15:12 STAT LAB CHEM [id number] 14:08:00 Test Item Value Reference Range Interpretation [...] mg/dl 0.6-1.3 L STAT LAB URINALYSIS WITHOUT [id number] 12:08:00 Test Item Value Reference Range Interpretation Comments Color (test code = Light-Yellow UCOLR) Clarity (test code = Cloudy UCLAR) Glucose (test code = NEGATIVE NEGATIVE N UGLUC) Bilirubin (test code NEGATIVE NEGATIVE N = UBILI) Ketones (test code = NEGATIVE NEGATIVE N UKET) Specific [place] 1.015 1.005-1.030 A (test code = USPGR) Blood (test code = NEGATIVE NEGATIVE N UBLD) PH (test code = UPH) 7.0 4.5-8.0 A Protein (test code = NEGATIVE NEGATIVE N UPROT) Urobilinogen (test 0.2 See_Comment N [Automat ed message] code = U UROB) The system [employer] generated this result transmit michael reference range [...] = 0.4 mg/dl 0.0-1.1 IBIL) URINALYSIS WITH [id number] 08:31:00 Test Item Value Reference Range Interpretation Comments Color (test code = Light-Yellow UCOLR) Clarity (test code = Clear UCLAR) Glucose (test code = NEGATIVE NEGATIVE N UGLUC) Bilirubin (test code NEGATIVE NEGATIVE N = UBILI) Ketones (test code = NEGATIVE NEGATIVE N UKET) Specific [place] 1.020 1.005-1.030 A (test code = USPGR) Blood (test code = NEGATIVE NEGATIVE N UBLD) PH (test code = UPH) 6.5 4.5-8.0 A Protein (test code = NEGATIVE NEGATIVE N UPROT) Urobilinogen (test 0.2 See_Comment N [Automat ed message] code = U UROB) The system wh ich generated this result transmit michael reference range [...] (test code = SQEP) STAT LAB CHEM [id number] 08:27:00 Test Item Value Reference Range Interpretation [...] 0.6-1.3 L STAT LAB CBC WITH AUTO [id number] 08:26:00 Test Item Value Reference Range Interpretation [...] 0.0-0.4 XR ABDOMEN 2 VIEWS FLAT / [id number] 08:18:50 [facility] ([facility]/)Name: LAUREN BETH : 1985 Sex: FProcedure: XR ABDOMEN 2 VIEWS FLAT / UPRIGHTOrder Date: 11/21/2020 7:43 AMOrdering Provider: REHAN Farrellinical Indication: [id number]: Abdominal painComparison: Nov 14 2020Findings:Bowel gas pattern is non-obstructive. No pneumoperitoneum.There is moderate volume stool burden.Surgical clips in the right upper quadrant of the abdomen.Impression:Nonobstructive bowel gas pattern.This final report was electronically signed by Dr Silver Benitez MD :13 AMDictated By: Chante DONIS: 11/21/2020 08:13CT ABDOMEN/PELVIS W/O [id number] 14:11:31[facility])Name: LAUREN BETH : 1985 Sex: FProcedure: CT ABDOMEN/PELVIS W/O CONTRASTOrder Date: 11/14/2020 1:22 PMOrdering Provider: MT ACOSTA .Clinical Indication: [id number]: Right flank painComparison: Renal ultrasound November 08, [...] Negative PREGU) ONLY AVAILABLE 8A-12MNSTAT LAB CHEM [id number] 11:09:00 Test Item Value Reference Range Interpretation [...] mg/dl 0.6-1.3 L STAT LAB URINALYSIS WITHOUT [id number] 11:08:00 Test Item Value Reference Range Interpretation Comments Color (test code = Yellow Lt. Yellow A UCOLR) Clarity (test code = Clear UCLAR) Glucose (test code = Negative Negative N UGLUC) Bilirubin (test code Negative Negative N = UBILI) Ketones (test code = Negative Negative N UKET) Specific [place] 1.025 1.005-1.030 A (test code = USPGR) Blood (test code = Trace-intact Negative A UBLD) PH (test code = UPH) 6.0 4.5-8.0 A Protein (test code = Negative Negative N UPROT) Urobilinogen (test 0.2 See_Comment N [Automat ed message] code = U UROB) The system [facility] generated this result transmit michael reference range : 0.2. The refere nce range was not u sed to interpret th is result as normal/abnormal . Nitrite (test code = Negative Negative N UNITR) Leukocyte Esterase Negative Negative N (test code = ULEUK) STAT LAB CBC WITH AUTO [id number] 11:05:00 Test Item Value Reference Range Interpretation [...] code = IG%) 0.4 % 0.0-0.4 CULTURE, [id number] 08:43:00Specimen: Urine SpecimensCollected: 11/08/2020 09:59 Status: Final Last Updated: 11/09/2020 08:43 CULTURE (Final) (Final) Few Mixed Body Gabriela Isolated No Pathogens IsolatedUS RENAL & BLADDER (KIDNEYS)2020-11-08 12:00:28 [facility])Name: LAUREN BETH : 1985 Sex: FProcedure: US RENALOrder Date: 11/08/2020 9:55 AMOrdering Provider: REHAN Farrellinical Indication: N13.2: HYDRONEPHROSIS WITH RENAL AND URETERAL CALCULOUSOBSTRUCTIONComparison: August 06, 2020Technique: Real-time ultrasonography was obtained over the kidneys and urinarybladder and hvac sales representative images were recorded.Findings:Right kidney: The kidney [...] code = NEGATIVE NEGATIVE N UKET) Specific [place] (test 1.030 1.005-1.030 A code = USPGR) Blood (test code = NEGATIVE NEGATIVE N UBLD) PH (test code = UPH) 6.0 4.5-8.0 A Protein (test code = NEGATIVE NEGATIVE N UPROT) Urobilinogen (test code 0.2 See_Comment N [Au tomated message] = U UROB) The system [employer] generated this result transmitted ref erence range: [...] 0-10 A (test code = SQEP) CULTURE, [id number] 08:13:00ER 17Specimen: Urine SpecimensCollected: 11/01/2020 01:10 Status: Final Last Updated: 11/02/2020 08:13 (1) ER 17 CULTURE (Final) (Final) Few Mixed Body Gabriela Isolated No Pathogens IsolatedXR ABD SERIES W/PA [id number] 03:48:37 [facility] ([facility]/)Name: LAUREN BETH : 1985 Sex: FPROCEDURE INFORMATION:Exam: [...] mg/dl 0.0-1.1 IBIL) ER 17STAT LAB CHEM [id number] 01:57:00 Test Item Value Reference Range Interpretation [...] 0.5 mg/dl 0.6-1.3 L ER 17URINALYSIS WITH [id number] 01:56:00 Test Item Value Reference Range Interpretation Comments Color (test code = Light-Yellow UCOLR) Clarity (test code = Clear UCLAR) Glucose (test code = 50 NEGATIVE A UGLUC) Bilirubin (test code NEGATIVE NEGATIVE N = UBILI) Ketones (test code = NEGATIVE NEGATIVE N UKET) Specific [place] 1.025 1.005-1.030 A (test code = USPGR) Blood (test code = NEGATIVE NEGATIVE N UBLD) PH (test code = UPH) 6.0 4.5-8.0 A Protein (test code = TRACE NEGATIVE A UPROT) Urobilinogen (test 0.2 See_Comment N [Automat ed message] code = U UROB) The system [facility] generated this result transmit michael reference range [...] SQEP) ER 17STAT LAB CBC WITH AUTO [id number] 01:55:00 Test Item Value Reference Range Interpretation [...] code = 0.1 mg/dl 0.0-1.1 IBIL) er [id number] 01:26:00 Test Item Value Reference Range Interpretation Comments Lipase (test code = LIPA) 154 U/L 73-393 ER 10STAT LAB CHEM [id number] 01:15:00 Test Item Value Reference Range Interpretation [...] 0.6 mg/dl 0.6-1.3 er 10STAT LAB , [id number] 01:14:00 Test Item Value Reference Range Interpretation Comments (Urine) (test code = Negative PREGU) er 10STAT LAB CBC WITH AUTO [id number] 01:13:00 Test Item Value Reference Range Interpretation [...] = IG%) 0.9 % 0.0-0.4 H er [id number] 04:21:00 Test Item Value Reference Range Interpretation [...] code = 0.1 mg/dl 0.0-1.1 IBIL) AMYLASE, [id number] 04:21:00 Test Item Value Reference Range Interpretation Comments Amylase (test code = AMYL) 47 U/L 25-115 URINALYSIS WITH [id number] 03:06:00 Test Item Value Reference Range Interpretation Comments Color (test code = Light-Yellow UCOLR) Clarity (test code = Clear UCLAR) Glucose (test code = NEGATIVE NEGATIVE N UGLUC) Bilirubin (test code NEGATIVE NEGATIVE N = UBILI) Ketones (test code = TRACE NEGATIVE A UKET) Specific [place] 1.025 1.005-1.030 A (test code = USPGR) Blood (test code = NEGATIVE NEGATIVE N UBLD) PH (test code = UPH) 5.5 4.5-8.0 A Protein (test code = NEGATIVE NEGATIVE N UPROT) Urobilinogen (test 0.2 See_Comment N [Automat ed message] code = U UROB) The system [facility] generated this result transmit michael reference range [...] (test code = NSE) STAT LAB CHEM [id number] 02:51:00 Test Item Value Reference Range Interpretation [...] mg/dl 0.6-1.3 STAT LAB CBC WITH AUTO [id number] 02:50:00 Test Item Value Reference Range Interpretation [...] XR ABDOMEN 1 VIEW (KUB)2020-09-12 01:51:21 [facility])Name: LAUREN BETH : 1985 Sex: FPROCEDURE INFORMATION:Exam: [...] ALLENDate: 09/12/2020 01:50STAT LAB CBC WITH AUTO [id number] 01:29:00 Test Item Value Reference Range Interpretation [...] IG%) 0.4 % 0.0-0.4 STAT LAB CHEM [id number] 01:28:00 Test Item Value Reference Range Interpretation [...] = CREA) 0.6 mg/dl 0.6-1.3 URINALYSIS WITH [id number] 03:04:00 Test Item Value Reference Range Interpretation Comments Color (test code = Yellow UCOLR) Clarity (test code = Clear UCLAR) Glucose (test code = 100 NEGATIVE A UGLUC) Bilirubin (test code = NEGATIVE NEGATIVE N UBILI) Ketones (test code = TRACE NEGATIVE A UKET) Specific [place] (test >=1.030 1.005-1.030 A code = USPGR) Blood (test code = NEGATIVE NEGATIVE N UBLD) PH (test code = UPH) 5.5 4.5-8.0 A Protein (test code = NEGATIVE NEGATIVE N UPROT) Urobilinogen (test code 0.2 See_Comment N [Au tomated message] = U UROB) The system [employer] generated this result transmitted ref erence range: [...] code = 3+ None Seen,Trace A UBACT) [id number] 03:01:00 Test Item Value Reference Range Interpretation [...] 4 - SerumAlbu min)] EGFR if >60 Welsh (test code mL/min/1.73m\\ = EGFRAA) S\\2 EGFR if Non- >60 Estimate d Glomerular Welsh (test code mL/min/1.73m\\ Filtrat ion Rate (eGFR) [...] and management of c hronic kidney failure. [id number] 03:01:00 Test Item Value Reference Range Interpretation Comments Lipase (test code = LIPA) 145 U/L 73-393 STAT LAB TEST, Serum [id number] 02:48:00 Test Item Value Reference Range Interpretation Comments (Serum) (test code = Negative PREGS) STAT LAB CBC WITH AUTO [id number] 02:28:00 Test Item Value Reference Range Interpretation [...] code = 0.1 mg/dl 0.0-1.1 IBIL) ER [id number] 02:59:00 Test Item Value Reference Range Interpretation Comments Lipase (test code = LIPA) 167 U/L 73-393 ER 16URINALYSIS WITH [id number] 02:48:00 Test Item Value Reference Range Interpretation Comments Color (test code = UCOLR) Yellow Clarity (test code = UCLAR) Clear Glucose (test code = UGLUC) NEGATIVE NEGATIVE N Bilirubin (test code = UBILI) NEGATIVE NEGATIVE N Ketones (test code = UKET) NEGATIVE NEGATIVE N Specific [place] (test code = >=1.030 1.005-1.030 A USPGR) [...] None Seen,Trace A ER 16CT ABDOMEN/PELVIS W/O [id number] 02:34:52ER 16 R/O KIDNEY STONE [facility] ([facility]/[place])Name: LAUREN BETH : [id number] Sex: FPROCEDURE INFORMATION:Exam: CT Abdomen And Pelvis [...] By: HOLLIS FERRERADate: 08/06/2020 02:34STAT LAB CHEM [id number] 02:29:00 Test Item Value Reference Range Interpretation [...] L ER 16STAT LAB CBC WITH AUTO [id number] 02:29:00 Test Item Value Reference Range Interpretation [...] = IG%) 0.7 % 0.0-0.4 H ER [id number] 09:31:00 Test Item Value Reference Range Interpretation [...] IBIL) XR ABDOMEN 2 VIEWS FLAT / [id number] 09:22:50 [facility] ([facility]/[place])Name: LAUREN BETH : [id number] Sex: FProcedure: XR ABDOMEN 2 VIEWS FLAT / UPRIGHTOrder Date: 07/19/2020 8:40 AMOrdering Provider: REHAN COTTON .Clinical Indication: [id number]: Abdominal painComparison: July 05, 2020Findings:Postoperative change consisting [...] By: FARZAD DEWITTDate: 07/19/2020 09:17STAT LAB CHEM [id number] 09:10:00 Test Item Value Reference Range Interpretation [...] 0.6-1.3 L STAT LAB CBC WITH AUTO [id number] 09:09:00 Test Item Value Reference Range Interpretation [...] % 0.0-0.4 H STAT LAB URINALYSIS WITHOUT [id number] 09:08:00 Test Item Value Reference Range Interpretation Comments Color (test code = UCOLR) Yellow Lt. Yellow A Clarity (test code = UCLAR) Clear Glucose (test code = UGLUC) Negative Negative N Bilirubin (test code = UBILI) Negative Negative N Ketones (test code = UKET) Negative Negative N Specific [place] (test code = USPGR) >=1.030 1.005-1.030 A Blood (test code = UBLD) Negative Negative N PH (test code = UPH) 6.0 4.5-8.0 A Protein (test code = UPROT) Negative Negative N Urobilinogen (test code = U UROB) 0.2 >0.2 N Nitrite (test code = UNITR) Negative Negative N Leukocyte Esterase (test code = Negative Negative N ULEUK) CULTURE, [id number] 08:00:00Specimen: Urine SpecimensCollected: 07/05/2020 03:00 Status: Final Last Updated: 07/07/2020 08:00 CULTURE (Final) (Final) No Growth After 48 HoursXR ABDOMEN 1 VIEW (KUB)2020-07-05 04:07:04 [facility] ([facility]/)Name: LAUREN BETH : [id number] Sex: FPROCEDURE INFORMATION:Exam: XR Abdomen, 1 ViewExam [...] Final report was electronically signed by Oskar Crane MD on 4:06 AM CDT.Dictated By: OSKAR CRANEte: 07/05/2020 04:06STAT LAB , [id number] 03:54:00 Test Item Value Reference Range Interpretation Comments (Urine) (test code = Negative PREGU) STAT LAB CHEM [id number] 03:53:00 Test Item Value Reference Range Interpretation [...] 0.6-1.3 L STAT LAB CBC WITH AUTO [id number] 03:51:00 Test Item Value Reference Range Interpretation [...] = IG%) 0.4 % 0.0-0.4 URINALYSIS WITH [id number] 03:33:00 Test Item Value Reference Range Interpretation Comments Color (test code = UCOLR) Yellow Clarity (test code = UCLAR) Clear Glucose (test code = UGLUC) NEGATIVE NEGATIVE N Bilirubin (test code = UBILI) Small NEGATIVE A Ketones (test code = UKET) TRACE NEGATIVE A Specific [place] (test code = USPGR) 1.020 1.005-1.030 A [...] UBACT) Trace None Seen,Trace N CT ABDOMEN/PELVIS W/[id number] 16:44:35 [facility] ([facility]/[place])Name: LAUREN BETH : [id number] Sex: FProcedure: CT ABDOMEN/PELVIS W/CONTRASTOrder date: 06/07/2020 3:47 PMOrderingProvider: REHAN COTTONClinical Indication: [id number]: Left flank painComparison: 06/07/20Technique: Multiple axial helical [...] PMDictated By: WILEY VELÁZQUEZDate: 06/07/2020 16:38URINALYSIS WITH [id number] 15:22:00 Test Item Value Reference Range Interpretation Comments Color (test code = UCOLR) Yellow Clarity (test code = UCLAR) Clear Glucose (test code = UGLUC) NEGATIVE NEGATIVE N Bilirubin (test code = UBILI) NEGATIVE NEGATIVE N Ketones (test code = UKET) NEGATIVE NEGATIVE N Specific [place] (test code = USPGR) 1.020 1.005-1.030 A [...] Trace None Seen,Trace N STAT LAB CHEM [id number] 15:10:00 Test Item Value Reference Range Interpretation [...] 0.6-1.3 L STAT LAB CBC WITH AUTO [id number] 15:08:00 Test Item Value Reference Range Interpretation [...] ABD/ PELVIS W/O CON (RENAL STONE)2020-06-07 14:56:05 [facility] ([facility]/[place])Name: LAUREN BETH : [id number] Sex: FProcedure: CT ABD/ PELVIS W/O CON (RENAL STONE)Order date: 06/07/2020 2:18 PMOrdering Provider: REHAN Farrellinical Indication: [id number]: Left flank painComparison: 05/31/20TECHNIQUE: Using a helical [...] By: WILEY VELÁZQUEZDate: 06/07/2020 14:49CT ABDOMEN/PELVIS W/O [id number] 12:27:07NPO 4 hours. Do not withhold meds hyst [facility] ([facility]/)Name: LAUREN BETH : [id number] Sex: FProcedure: CT ABDOMEN/PELVIS W/O CONTRASTOrder Date: 05/31/2020 10:25 AMOrdering Provider: MAHSA MCBRIDEClinical Indication: [id number]: Pain radiating to right flankComparison: March 20, [...] MD 05/31/202012:20 PMDictated By: FARZAD DEWITTDate: 05/31/2020 12:[id number] 11:48:00 Test Item Value Reference Range Interpretation Comments Lipase (test code = LIPA) 116 U/L 73-393 STAT LAB URINALYSIS WITHOUT [id number] 10:59:00 Test Item Value Reference Range Interpretation Comments Color (test code = UCOLR) Light yellow Lt. Yellow A Clarity (test code = UCLAR) Clear Glucose (test code = UGLUC) Negative Negative N Bilirubin (test code = UBILI) Negative Negative N Ketones (test code = UKET) Negative Negative N Specific [place] (test code = 1.025 1.005-1.030 A USPGR) Blood (test code = UBLD) Negative Negative N PH (test code = UPH) 6.0 4.5-8.0 A Protein (test code = UPROT) Negative Negative N Urobilinogen (test code = U 0.2 >0.2 N UROB) Nitrite (test code = UNITR) Negative Negative N Leukocyte Esterase (test code = Negative Negative N ULEUK) STAT LAB CBC WITH AUTO [id number] 10:58:00 Test Item Value Reference Range Interpretation [...] 0.5 % 0.0-0.4 H STAT LAB CHEM [id number] 10:53:00 Test Item Value Reference Range Interpretation [...] L XR ABDOMEN 1 VIEW (KUB)2020-04-25 21:02:16 [facility] ([facility]/[place])Name: LAUREN BETH : [id number] Sex: FPROCEDURE INFORMATION:Exam: XR Abdomen, 1 ViewExam [...] CDT.Dictated By: TEJAS RODRIGUEZDate: 04/25/2020 21:02URINALYSIS WITH [id number] 18:57:00 Test Item Value Reference Range Interpretation Comments Color (test code = UCOLR) Yellow Lt. Yellow A Clarity (test code = UCLAR) Clear Glucose (test code = UGLUC) Negative Negative N Bilirubin (test code = UBILI) Negative Negative N Ketones (test code = UKET) Negative Negative N Specific [place] (test code = 1.020 1.005-1.030 A USPGR) [...] Seen,Trace A STAT LAB CBC WITH AUTO [id number] 18:55:00 Test Item Value Reference Range Interpretation [...] of Platel et clumping was entered by [id number] on 04/25/2020 18:5 5 STAT LAB CHEM [id number] 18:17:00 Test Item Value Reference Range Interpretation [...] CREA) 0.4 mg/dl 0.6-1.3 L CULTURE, ANAEROBE [id number] 15:20:00FIRST DRAW = 1 aerobic and 1 [...] (Final) No Growth After 5 DaysCT ABDOMEN/PELVIS W/[id number] 21:46:442 weeks s/p adhesolysis. Vomiting/pain/fever. Please do CT with PO and IV contrastProcedures: CT ABDOMEN/PELVIS W/CONTRASTExam Date: 03/20/2020 6:04 PMOrdering Physician: REHAN COTTONClinical Indication: [id number]: Abdominal painComparison: CT abdomen/pelvis, 02/25/20TECHNIQUE: Spiral multislice [...] (test code = 0.3 mg/dl 0.0-1.1 IBIL) [id number] 19:24:00 Test Item Value Reference Range Interpretation Comments Lipase (test code = LIPA) 69 U/L 73-393 L [id number] 19:24:00 Test Item Value Reference Range Interpretation Comments Magnesium (test code = MG) 2.0 mg/dl 1.6-2.6 STAT LAB CHEM [id number] 18:43:00 Test Item Value Reference Range Interpretation [...] 0.5 mg/dl 0.6-1.3 L STAT LAB LACTIC [id number] 18:42:00 Test Item Value Reference Range Interpretation Comments LACTATE (test code = 2.50 mmol/l 0.90-1.70 HH R&RB sy rene hassan rn LAC) @1842 STAT LAB CBC WITH AUTO [id number] 18:41:00 Test Item Value Reference Range Interpretation [...] PLMNT MIDLINE NO PORT > 5 y/o W/[id number] 13:21:10Procedure: SP PERC PLMNT MIDLINE NO PORT > 5 y/o W/IMAGINGOrder Date: 03/15/2020 10:06 AMOrdering Provider: LIZBETH LOPEZlinical Indication: Vascular accessTechnique:The patient was placed supine [...] secured to the skin in the usual fashion.Analytical Lab Analyst images were recorded and stored in the medical record fordocumentation. The patient tolerated the procedure well and there were noimmediate complications.Impression:1. Successful upper extremity vascular access.This final report was electronically signed by Dr Farzad Dewitt MD 03/15/20201:14 PMDictated By: FARZAD DEWITTDate: 03/15/2020 13:14CORONAVIRUS 2018 (IN HOUSE)2020-03-13 21:03:00 Test Item Value Reference [...] lection of specimen. XR ABD SERIES W/PA [id number] 17:33:07Procedure: XR ABD SERIES W/PA CXROrder Date: 03/13/2020 4:25 PMOrdering Provider: DR ELIUD Stovallinical Indication: R10.0: ACUTE ABDOMENComparison: NoneFindings:Lungs are clear. Heart size is within normal limits.Abdomen views show non-obstructive bowel gas pattern. No pneumoperitoneum.Moderatevolume stool burden.Surgical clips in the right upper quadrant of the abdomen.Impression:No acute pulmonary process.Nonobstructive bowel gas pattern.This final report was electronically signed by Dr Silver Benitez MD 03/13/20205:26 PMDictated By: GLORY BENITEZKDate: 03/13/2020 17:26STAT LAB CBC WITH AUTO [id number] 17:23:00 Test Item Value Reference Range Interpretation [...] entered by [id number] on 03/13/2020 17:23 [id number] 17:23:00 Test Item Value Reference Range Interpretation [...] = 0.4 mg/dl 0.0-1.1 IBIL) URINALYSIS WITH [id number] 16:54:00 Test Item Value Reference Range Interpretation Comments Color (test code = UCOLR) Yellow Lt. Yellow A Clarity (test code = UCLAR) Clear Glucose (test code = UGLUC) Negative Negative N Bilirubin (test code = UBILI) Negative Negative N Ketones (test code = UKET) Negative Negative N Specific [place] (test code = >=1.030 1.005-1.030 A USPGR) [...] 4+ None Seen,Trace A STAT LAB CHEM [id number] 16:37:00 Test Item Value Reference Range Interpretation [...] PLMNT MIDLINE NO PORT > 6 y/o [id number] 12:23:44Procedure: SP PERC PLMNT MIDLINE NO PORT [...] recommend recol lection of specimen. PT AND [id number] 11:51:00 Test Item Value Reference Range Interpretation Comments Protime (test code 9.8 seconds 9.5-12.1 = PT) INR (test code = 0.9 0.9-1.1 INR results are intended INR) ONLY to monitor Oral Anticoagulant t herapy in stablized pa tients. The INR Therape utic Range is 2.0 - 3.0 Patients with a mechanical hear t, the INR Range is 2. 5 - 3.5 [id number] 11:51:00 Test Item Value Reference Range Interpretation [...] BE NOTED ON THE RE PORT. CULTURE, [id number] 08:08:00Specimen: Urine RandomCollected: 02/25/2020 11:27 Status: Final Last Updated: 02/27/2020 08:08 CULTURE (Final) (Final) No Growth After 48 [id number] 05:38:00 Test Item Value Reference Range Interpretation [...] 0.5-1.3 code = CREA) EGFR if >60 [place] (test code mL/min/1.73m\\ = EGFRAA) S\\2 EGFR if Non- >60 Estimate d Glomerular [place] (test code mL/min/1.73m\\ Filtrat ion Rate (eGFR) [...] 0.04 mIU/L 0.35-3.74 L CBC WITH AUTO [id number] 05:18:00 Test Item Value Reference Range Interpretation [...] % 0.0-0.4 H IG%) CBC AUTO diffCORONAVIRUS 2019 (IN HOUSE)2020-02-25 14:06:00 Test Item Value Reference [...] recommend recol lection of specimen. URINALYSIS WITH [id number] 12:56:00 Test Item Value Reference Range Interpretation Comments Color (test code = UCOLR) Yellow Lt. Yellow A Clarity (test code = UCLAR) Slightly Cloudy Glucose (test code = UGLUC) Negative Negative N Bilirubin (test code = UBILI) Negative Negative N Ketones (test code = UKET) Negative Negative N Specific [place] (test code = >=1.030 1.005-1.030 A USPGR) [...] code = UBACT) Trace None Seen,Trace N [id number] 12:52:00 Test Item Value Reference Range Interpretation [...] = 0.3 mg/dl 0.0-1.1 IBIL) CT ABDOMEN/PELVIS W/[id number] 12:42:41NPO 4 hours. Do not withhold meds [...] By: WILEY VELÁZQUEZDate: 02/25/2020 12:36STAT LAB CHEM [id number] 12:07:00 Test Item Value Reference Range Interpretation [...] 0.6-1.3 L STAT LAB CBC WITH AUTO [id number] 12:05:00 Test Item Value Reference Range Interpretation [...] % 0.0-0.4 STAT LAB CBC WITH AUTO [id number] 03:15:00 Test Item Value Reference Range Interpretation [...] 0.6 % 0.0-0.4 H STAT LAB CHEM [id number] 02:55:00 Test Item Value Reference Range Interpretation [...] JORGE LUIS WHITEDate: 02/25/2020 02:45STAT LAB , [id number] 01:12:00 Test Item Value Reference Range Interpretation Comments (Urine) (test code = Negative PREGU) STAT LAB URINALYSIS WITHOUT [id number] 01:11:00 Test Item Value Reference Range Interpretation Comments Color (test code = UCOLR) Yellow Lt. Yellow A Clarity (test code = UCLAR) Clear Glucose (test code = UGLUC) Negative Negative N Bilirubin (test code = UBILI) Negative Negative N Ketones (test code = UKET) Negative Negative N Specific [place] (test code = USPGR) >=1.030 1.005-1.030 A [...] code = UKET) Negative Negative N Specific [place] (test code = 1.015 1.005-1.030 A USPGR) [...] = UBACT) None Seen None Seen,Trace N [id number] 04:42:00 Test Item Value Reference Range Interpretation [...] 0.2 mg/dl 0.0-1.1 IBIL) STAT LAB CHEM [id number] 04:27:00 Test Item Value Reference Range Interpretation [...] CREA) 0.6 mg/dl 0.6-1.3 STAT LAB , [id number] 04:24:00 Test Item Value Reference Range Interpretation Comments (Urine) (test code = Negative PREGU) STAT LAB CBC WITH AUTO [id number] 04:22:00 Test Item Value Reference Range Interpretation [...] % 0.0-0.[address] L SPINE W/O [id number] 12:46:24Procedure: CT L SPINE W/O CONTRASTOrder date: 01/25/2020 11:46 AMOrdering Provider: DONALD Healyinical Indication: [id number]: Low back painComparison: NoneTechnique: Using a multislice [...] code = 0.3 mg/dl 0.0-1.1 IBIL) ER [id number] 05:49:00 Test Item Value Reference Range Interpretation Comments Lipase (test code = LIPA) 105 U/L 73-393 ER 7STAT LAB CHEM [id number] 05:06:00 Test Item Value Reference Range Interpretation [...] L ER 7STAT LAB CBC WITH AUTO [id number] 05:04:00 Test Item Value Reference Range Interpretation [...] code = IG%) 0.4 % 0.0-0.4 ER [id number] 02:23:00 Test Item Value Reference Range Interpretation [...] 4 - SerumAlbu min)] EGFR if >60 [place] (test code mL/min/1.73m\\ = EGFRAA) S\\2 EGFR if Non- >60 Estimate d Glomerular [place] (test code mL/min/1.73m\\ Filtrat ion Rate (eGFR) [...] of c hronic kidney failure. URINALYSIS WITH [id number] 02:11:00 Test Item Value Reference Range Interpretation Comments Color (test code = UCOLR) Yellow Lt. Yellow A Clarity (test code = UCLAR) Clear Glucose (test code = UGLUC) Negative Negative N Bilirubin (test code = UBILI) Negative Negative N Ketones (test code = UKET) Trace Negative A Specific [place] (test code = USPGR) >=1.030 1.005-1.030 A [...] Seen,Trace A STAT LAB CBC WITH AUTO [id number] 02:03:00 Test Item Value Reference Range Interpretation [...] = IG%) 0.4 % 0.0-0.4 CT ABDOMEN/PELVIS [id number] 22:43:00NPO 4 hours. Do not withhold meds [...] 201910:42 PM CDT.Dictated By: JOSUÉ MCGHEEDate: 10/07/2019 22:[id number] 22:05:00 Test Item Value Reference Range Interpretation [...] 0.5-1.3 code = CREA) EGFR if >60 [place] (test code mL/min/1.73m\\ = EGFRAA) S\\2 EGFR if Non- >60 Estimate d Glomerular [place] (test code mL/min/1.73m\\ Filtrat ion Rate (eGFR) [...] management of c hronic kidney failure. AMYLASE, [id number] 22:05:00 Test Item Value Reference Range Interpretation Comments Amylase (test code = AMYL) 43 U/L 25-115 [id number] 22:05:00 Test Item Value Reference Range Interpretation Comments Lipase (test code = LIPA) 95 U/L 73-393 URINALYSIS WITH [id number] 21:49:00 Test Item Value Reference Range Interpretation Comments Color (test code = UCOLR) Yellow Lt. Yellow A Clarity (test code = UCLAR) Clear Glucose (test code = UGLUC) Negative Negative N Bilirubin (test code = UBILI) Negative Negative N Ketones (test code = UKET) 15 Negative A Specific [place] (test code = USPGR) >=1.030 1.005-1.030 A [...] Seen,Trace A STAT LAB CBC WITH AUTO [id number] 21:45:00 Test Item Value Reference Range Interpretation [...] IG%) 0.4 % 0.0-0.4 STAT LAB , [id number] 21:36:00 Test Item Value Reference Range Interpretation Comments (Urine) (test code = Negative PREGU) CT ABDOMEN/PELVIS W/O [id number] 03:56:36PROCEDURE INFORMATION:Exam: CT Abdomen And Pelvis Without [...] 3:56 AM CDT.Dictated By: AMY ORDOÑEZDate: 09/20/2019 03:[id number] 02:07:00 Test Item Value Reference Range Interpretation [...] 4 - SerumAlbu min)] EGFR if >60 [place] (test code mL/min/1.73m\\ = EGFRAA) S\\2 EGFR if Non- >60 Estimate d Glomerular [place] (test code mL/min/1.73m\\ Filtrat ion Rate (eGFR) [...] failure. XR ABDOMEN 2 VIEWS FLAT / [id number] 02:01:15PROCEDURE INFORMATION:Exam: XR Abdomen, 2 ViewsExam date [...] CDT.Dictated By: AMY ORDOÑEZDate: 09/20/2019 02:01URINALYSIS WITH [id number] 01:56:00 Test Item Value Reference Range Interpretation Comments Color (test code = UCOLR) Yellow Lt. Yellow A Clarity (test code = UCLAR) Clear Glucose (test code = UGLUC) >=1000 Negative A Bilirubin (test code = UBILI) Negative Negative N Ketones (test code = UKET) Trace Negative A Specific [place] (test code = USPGR) >=1.030 1.005-1.030 A [...] Seen,Trace A STAT LAB CBC WITH AUTO [id number] 01:38:00 Test Item Value Reference Range Interpretation [...] IG%) 0.5 % 0.0-0.[address] ABDOMEN/PELVIS W/[id number] 04:23:30PROCEDURE INFORMATION:Exam: CT Abdomen And Pelvis With [...] 20194:23 AM CDT.Dictated By: SETH MEDINADate: 08/17/2019 04:[id number] 03:34:00 Test Item Value Reference Range Interpretation Comments Lipase (test code = LIPA) 67 U/L 73-393 L [id number] 03:34:00 Test Item Value Reference Range Interpretation [...] 4 - SerumAlbu min)] EGFR if >60 [place] (test code mL/min/1.73m\\ = EGFRAA) S\\2 EGFR if Non- >60 Estimate d Glomerular [place] (test code mL/min/1.73m\\ Filtrat ion Rate (eGFR) [...] kidney failure. STAT LAB CBC WITH AUTO [id number] 03:19:00 Test Item Value Reference Range Interpretation [...] IG%) 0.7 % 0.0-0.4 H URINALYSIS WITH [id number] 03:10:00 Test Item Value Reference Range Interpretation Comments Color (test code = UCOLR) YELLOW Clarity (test code = UCLAR) CLEAR Glucose (test code = UGLUC) NEGATIVE NEGATIVE N Bilirubin (test code = UBILI) NEGATIVE NEGATIVE N Ketones (test code = UKET) NEGATIVE NEGATIVE N Specific [place] (test code = 1.025 1.005-1.030 A USPGR) [...] 1+ None Seen,Trace A STAT LAB , [id number] 03:03:00 Test Item Value Reference Range Interpretation Comments (Urine) (test code = Negative PREGU) ONLY AVAILABLE [id number] 20:37:00 Test Item Value Reference Range Interpretation [...] code = CREA) 0.6 mg/dl 0.6-1.2 ED2 [id number] 20:28:00 Test Item Value Reference Range Interpretation [...] = MPV) 7.1 fL 8.0-11.0 A CULTURE, [id number] 08:44:59ihq3Ueuyrlyd: Urine SpecimensCollected: 07/12/2019 15:00 Status: Final Last Updated: 2019 08:44 (1) err7 Culture Result (Final) (Final) Moderate Mixed Body Gabriela Isolated No Pathogens Isolated No Further Workup PerformedFL LIMITED [id number] 17:53:41Procedures: FL LIMITED IVPExam Date: 07/12/2019 3:21 PMOrdering Physician: REHAN TAJ SANDERSClinical Indication: [id number]: Flank painComparison: CT abdomen/pelvis, 05/17/19Findings: Frontal radiographs [...] MD07/12/2019 5:47 PMDictated By: ELMER PHAMDate: 07/12/2019 17:[id number] 15:56:00 Test Item Value Reference Range Interpretation Comments Lipase (test code = LIPA) 97 U/L 73-393 [id number] FUNCTION PANEL (LIVER)2019-07-12 15:56:00 Test Item Value [...] (test code = 0.2 mg/dl 0.0-1.1 IBIL) [id number] WITH [id number] 15:51:00 Test Item Value Reference Range Interpretation Comments Color (test code = UCOLR) YELLOW Clarity (test code = UCLAR) CLEAR Glucose (test code = UGLUC) NEGATIVE NEGATIVE N Bilirubin (test code = UBILI) NEGATIVE NEGATIVE N Ketones (test code = UKET) NEGATIVE NEGATIVE N Specific [place] (test code = 1.020 1.005-1.030 A USPGR) [...] code = UBACT) 4+ None Seen,Trace A upe0HMIP LAB CHEM [id number] 15:09:00 Test Item Value Reference Range Interpretation [...] (test code = CREA) 0.6 mg/dl 0.6-1.[address] LAB CBC WITH AUTO [id number] 15:08:00 Test Item Value Reference Range Interpretation [...] = IG%) 0.4 % 0.0-0.4 err7CT ABDOMEN/PELVIS W/[id number] 16:33:46NPO 4 hours. Do not withhold medsProcedures: CT ABDOMEN/PELVIS W/CONTRASTExam Date: 05/17/2019 1:31 PMOrdering Physician: MERLE LYNNEClinical Indication: [id number]: Abdominal painComparison: CT abdomen/pelvis, 04/09/19TECHNIQUE: Spiral multislice [...] MD05/17/20194:27 PMDictated By: ELMER PHAMDate: 05/17/2019 16:27 [id number] 16:20:00 Test Item Value Reference Range Interpretation Comments Lipase (test code = LIPA) 70 U/L 73-393 L STAT LAB CHEM [id number] 15:24:00 Test Item Value Reference Range Interpretation [...] 0.5 mg/dl 0.6-1.3 L STAT LAB LACTIC [id number] 15:23:00 Test Item Value Reference Range Interpretation Comments LACTATE (test code = LAC) 1.39 mmol/l 0.90-1.70 STAT LAB CBC WITH AUTO [id number] 15:21:00 Test Item Value Reference Range Interpretation [...] IG%) 0.5 % 0.0-0.4 H URINALYSIS WITH [id number] 15:08:00 Test Item Value Reference Range Interpretation Comments Color (test code = UCOLR) YELLOW Clarity (test code = UCLAR) CLEAR Glucose (test code = UGLUC) NEGATIVE NEGATIVE N Bilirubin (test code = UBILI) NEGATIVE NEGATIVE N Ketones (test code = UKET) NEGATIVE NEGATIVE N Specific [place] (test code = 1.025 1.005-1.030 A USPGR) [...] None Seen,Trace A CT ANGIO HEAD W/WO [id number] 16:28:5720 g Cathlon Above the Antecubital or higher requiredProcedure: CT ANGIO HEAD W/WO CONTRASTOrder Date: 05/12/2019 3:30 PMOrdering Provider: REHAN Farrellinical Indication: [id number]: HeadacheComparison: NoneTechnique: Using a helical scanner,sequential axial imaging of the brain wasobtained before and after the administration of the contrast medium. At anindependent workstation, 3-D reconstructions of the [place] of [place] wereobtained.This exam was performed according [...] 05/12/20194:22PMDictated By: FARZAD DEWITTDate: 05/12/2019 16:22CT ABDOMEN/PELVIS W/[id number] 14:36:05NPO 4 hours. Do not withhold medsProcedure: CT ABDOMEN/PELVIS W/CONTRASTOrder Date: 04/09/2019 8:00 AMOrdering Provider: LIZBETH RUBIOERClinical Indication: R09.89: OTHER SPECIFIED SYMPTOMS AND SIGNS INVOLVING THECIRCULATORY AND RESPIRATORY SYSTEMSComparison: April 04, 2019TECHNIQUE:The abdomen and pelvis were scanned utilizing a m ultidetector helical scannerfrom the diaphragm to the lesser [...] MD 04/09/20192:29 PMDictated By: GLORY BENITEZKDate: 04/09/2019 14:29CB WITH AUTO [id number] 09:02:00 Test Item Value Reference Range Interpretation [...] % 0.0-0.4 H IG%) CBC WITH AUTO [id number] 09:14:00 Test Item Value Reference Range Interpretation [...] (test code = 0.4 % 0.0-0.4 IG%) [id number] 09:12:00 Test Item Value Reference Range Interpretation [...] 0.5-1.3 code = CREA) EGFR if >60 Welsh (test code mL/min/1.73m\\ = EGFRAA) S\\2 EGFR if Non- >60 Estimate d Glomerular Welsh (test code mL/min/1.73m\\ Filtrat ion Rate (eGFR) [...] PLMNT MIDLINE NO PORT > 5 y/o W/[id number] 16:11:23Procedure: SP PERC PLMNT MIDLINE NO PORT [...] PMDictated By: WILEY VELÁZQUEZDate: 04/07/2019 16:05CT ABDOMEN/PELVIS W/[id number] 22:50:40 PROCEDURE INFORMATION:Exam: CT Abdomen and pelvis [...] 10:50 PM CDT.Dictated By: ELMER PHAMDate: 04/04/2019 22:[id number] 21:22:00 Test Item Value Reference Range Interpretation [...] 0.3 mg/dl 0.0-1.1 IBIL) STAT LAB CHEM [id number] 21:07:00 Test Item Value Reference Range Interpretation [...] 0.6 mg/dl 0.6-1.3 STAT LAB URINALYSIS WITHOUT [id number] 21:05:00 Test Item Value Reference Range Interpretation Comments Color (test code = UCOLR) Yellow Lt. Yellow A Clarity (test code = UCLAR) Slightly Cloudy Glucose (test code = UGLUC) 100 Negative A Bilirubin (test code = UBILI) Negative Negative N Ketones (test code = UKET) Negative Negative N Specific [place] (test code = >=1.030 1.005-1.030 A USPGR) Blood (test code = UBLD) Negative Negative N PH (test code = UPH) 5.5 4.5-8.0 A Protein (test code = UPROT) Negative Negative N Urobilinogen (test code = U 0.2 >0.2 N UROB) Nitrite (test code = UNITR) Negative Negative N Leukocyte Esterase (test code Negative Negative N = ULEUK) STAT LAB CBC WITH AUTO [id number] 21:04:00 Test Item Value Reference Range Interpretation [...] 0.5 % 0.0-0.4 H STAT LAB , [id number] 21:04:00 Test Item Value Reference Range Interpretation Comments (Urine) (test code = Negative PREGU) ONLY AVAILABLE 8A-79JSDP5 [id number] 16:05:00 Test Item Value Reference Range Interpretation Comments Sodium (test code = CANCELED mmol/l The r eleased value NA) 141 was cancele d by [id number] on 04/04/2019 16:0 5 Potassium (test code CANCELED mmol/l The released value = K) 3.9 was cancele d by [id number] on 04/04/2019 16:0 5 CO2 (test code = CANCELED mmol/l The rele ased value CO2) 23 was canceled by [id number] on 04/04/2019 16:0 5 Chloride (test code CANCELED mmol/l The r eleased value = CL) 108 was cancele d by [id number] on 04/04/2019 16:0 5 Glucose (test code = CANCELED mg/dl The r eleased value GLU) 96 was canceled by [id number] on 04/04/2019 16:0 5 Calcium (test code = CANCELED mg/dl The r eleased value CALC) 8.8 was cancele d by [id number] on 04/04/2019 16:0 5 BUN (test code = CANCELED mg/dl The relea sed value BUN) 11 was canceled by [id number] on 04/04/2019 16:0 5 Creatinine (test CANCELED mg/dl code = CREA) HISTOLOGY [id number] 11:08:00 [address] [id number]: XXGY #: [phone] Dovetailer: Seth Valdez M.D.Surgical Pathology Consultation ReportPatient Name: LAUREN BETH Case #: [id number] [facility]. Rec. #[facility][id number] [id number] Date: 03/21/2019 : 1985(Age:33) Received: 03/23/2019 Gender: F Copy to: Reported:03/23/2019 Physician(s): Lizbeth Wolfe Specimen(s) ReceivedA: Right ovary [facility] DiagnosisRight ovary and fallopian tube, right salpingo-oophorectomy:- [...] dimension. The cystsarefilled with clear serous fluid. Analytical Lab Analyst sections of the ovaryandpossible fallopian tube are submitted in cassettes A1-A8. /03/23/2019 Seth Valdez MD, Board Certified in Anatomic Pathology Microscopic DescriptionMicroscopic examination of the right ovary reveals fibrovascularadhesionsalong the surface of the ovary as well as along the accompanyingfallopiantube. The ovarian parenchyma contains follicular cysts, benign serouscyst,as well as numerous corpus albicans. No areas of endometriosis areseen. Billing Fee Code(s): A; 28334- US TRANSVAGINAL W/PELVIS 2019-03-10 16:45:00 Patient Name: LAUREN BETH Unit No: [id number] EXAMS: CPT CODE: [id number] US TRANSVAGINAL W/PELVIS 85335 CLINICAL HISTORY: Right lower quadrant pain. Status [...] is identified in the right ovary. at 1641 Reported and signed by: Mario Guidry MD CC: Hilaria Calderón MD Technologist: Dipesh Miranda RDMS, T Probe: [id number] Trnscrbd D/ (2497) VereniceYOS Orig Print D/T: S: 03/10/2019 (0425) [facility] NAME: LAUREN BETH Radiology Department PHYS: GUTAL.01 - Calderón,Hilaria [address] : 1985 AGE: 33 SEX: Luis Fernando [place], [place] [address] LOC: DayanaraERS PHONE #: [phone] EXAM DATE: 03/10/2019 STATUS: DEP ER FAX #: [phone] RAD NO: [id number] Page 1 Signed Report Patient Name: LAUREN BETH Unit No: [id number] EXAMS: CPT CODE: [id number] US TRANSVAGINAL W/PELVIS 08005 <Continued> The [facility] NAME: LAUREN BETH Radiology Department PHYS: Hilaria Maldonado [address] : 1985 AGE: 33 SEX: F [place], [place] [address] LOC: ALONDRA PHONE #: [phone] EXAM DATE: 03/10/2019 STATUS: [facility] ER FAX #: [phone] RAD NO: [id number] Page 2 Signed Report- US TRANSVAGINAL W/[id number] 16:45:00 Patient Name: CINDA BETH Unit No: [id number] EXAMS: CPT CODE: [id number] US TRANSVAGINAL W/PELVIS 76034 CLINICAL HISTORY: Right lower quadrant pain. Status [...] MD Technologist: Dipesh Miranda RDMS, T Probe: [id number] Trnscrbd D/ (5485) VereniceYOS Orig Print D/T: S: 03/10/2019 (8821) The [facility] NAME: CINDA BETH Radiology [facility] Hilaria Calderón [address] : 1985 AGE: 33 SEX: [place] [address] LOC: ALONDRA PHONE #: [phone] EXAM DATE: 03/10/2019 STATUS: REG ER FAX #: [phone] RAD NO: Page 1 Signed Report Patient Name: CINDA BETH Unit No: [id number] EXAMS: CPT CODE: [id number] US TRANSVAGINAL W/PELVIS 04230 <Continued> [facility] NAME: CINDA BETH Radiology Department PHYS: SUE. - Hilaria Calderón [address] : 1985 AGE: 33 SEX: [place] [address] LOC: ALONDRA PHONE #: [phone] EXAM DATE: 03/10/2019 STATUS: REG ER FAX #: [phone] RAD NO: Page 2 Signed Report- US PELVIS [id number] 16:45:00 Patient Name: LAUREN BETH Unit No: [id number] EXAMS: CPT CODE: [id number] US PELVIS COMPLETE 25370 CLINICAL HISTORY: Right lower quadrant pain. Status [...] Dipesh Miranda RDMS, RVT Probe: Trnscrbd D/ (049) t.MICAELAR.YOS Orig Print D/T: S: 03/10/2019 (8883) The [facility] NAME: LAUREN BETH Radiology Department [facility] - Hilaria Calderón [address] : 1985 AGE: 33 SEX: F [place] [address] LOC: DayanaraERS PHONE #: [phone] EXAM DATE: 03/10/2019 STATUS: DEP ER FAX #: [phone] RAD NO: [id number] Page 1 Signed Report Patient Name: LAUREN BETH Unit No: [id number] EXAMS: CPT CODE: [id number] US PELVIS COMPLETE 97968 <Continued> The [facility] NAME: LAUREN BETH Radiology Department PHYS: SUE.Hilaria Diza [address] : 1985 AGE: 33 SEX: F [place] [address] LOC: DayanaraERS PHONE #: [phone] EXAM DATE: 03/10/2019 STATUS: DEP ER FAX #: [phone] RAD NO: [id number] Page 2 Signed Report- US PELVIS COMPLETE 2019-03-10 16:45:00 Patient Name: CINDA BETH Unit No: [id number] EXAMS: CPT CODE: [id number] US PELVIS COMPLETE 50762 CLINICAL HISTORY: Right lower quadrant pain. Status [...] is identified in the right ovary. at 3691 Reported and signed by: Mario Guidry MD CC: Hilaria Calderón MD Technologist: Dipesh Miranda RDMS, RVT Probe: Trnscrbd D/ (9360) t.YOS Orig Print D/T: S: 03/10/2019 (5996) The [facility] NAME: CINDA BETH Radiology Department PHYS: SUE. - Hilaria Calderón [address] : 1985 AGE: 33 SEX: F [place], [place] [address] LOC: ALONDRA PHONE #: [phone] EXAM DATE: 03/10/2019 STATUS: REG ER FAX #: [phone] RAD NO: Page 1 Signed Report Patient Name: CINDA BETH Unit No: [id number] EXAMS: CPT CODE: [id number] US PELVIS COMPLETE 70636 <Continued> The [facility] NAME: CINDA BETH R adiology Department PHYS: SUE.Faustino - Hilaria Calderón [address] : 1985 AGE: 33 SEX: F [place], [place] [address] LOC: ALONDRA PHONE #: [phone] EXAM DATE: 03/10/2019 STATUS: [facility] FAX #: [phone] RAD NO: Page 2 Signed ReportCBC W/AUTO [...] = PLTMR) UA RFLX MICR CULT IF [id number] 16:07:00 Test Item Value Reference Range Interpretation [...] A Indication for culture: Suprapubic PainUR HCG [id number] 16:07:00 Test Item Value Reference Range Interpretation [...] EPIU) Indication for culture: Suprapubic PainUR HCG [id number] 16:04:00 Test Item Value Reference Range Interpretation Comments UR HCG QUAL (test NEGATIVE 1. Very di lute urine code = HCGQLU) specimens, as indicated by a lowspecific g ravity, may not contain rep resentative levels ofhCG. 2 . False negative result s may occur when the levels of hCGare below the sensi tivity level of the test. If is still suspec micahel, a first morningurine sp ecimen should be [...] RARE-FEW Indication for culture: Suprapubic PainUR HCG [id number] 15:55:00 Test Item Value Reference Range Interpretation [...] and tested. Indication for culture: Suprapubic PainED2 [id number] 01:18:00 Test Item Value Reference Range Interpretation [...] MPV) 6.9 fL 8.0-11.0 A ED2 URINE [id number] 00:55:00 Test Item Value Reference Range Interpretation Comments Color (test code = UCOLR) Yellow Lt. Yellow A Clarity (test code = UCLAR) Clear Glucose (test code = UGLUC) NEGATIVE NEGATIVE N Bilirubin (test code = UBILI) NEGATIVE NEGATIVE N Ketones (test code = UKET) NEGATIVE NEGATIVE N Specific [place] (test code = USPGR) 1.030 1.005-1.030 A Blood (test code = UBLD) NEGATIVE NEGATIVE N PH (test code = UPH) 6.0 4.5-8.0 A Protein (test code = UPROT) Trace NEGATIVE A Urobilinogen (test code = U UROB) 0.2 >0.2 N Nitrite (test code = UNITR) NEGATIVE NEGATIVE N Leukocyte Esterase (test code = NEGATIVE NEGATIVE N ULEUK) ED2 , [id number] 00:54:00 Test Item Value Reference Range Interpretation Comments (Urine) (test code = Negative PREGU) [id number] 13:07:00 Test Item Value Reference Range Interpretation Comments Lipase (test code = LIPA) 106 U/L 73-[address] ABDOMEN/PELVIS W/[id number] 12:24:12Procedures: ED2 CT ABDOMEN/PELVIS W/CONTRASTExam Date: 02/07/2019 10:11 AMOrdering Physician: PORFIRIO SOTOMAYORClinical Indication: [id number]: Epigastric painComparison: CT abdomen/pelvis, 01/27/19TECHNIQUE: Spiral multislice [...] 12:17 PMDictated By: ELMER PHAMDate: 02/07/2019 12:17ED2 [id number] 10:48:00 Test Item Value Reference Range Interpretation [...] = TP) 7.6 gm/dl 6.4-8.1 ED2 URINE [id number] 10:45:00 Test Item Value Reference Range Interpretation Comments Color (test code = UCOLR) Yellow Lt. Yellow A Clarity (test code = UCLAR) Sl Cloudy Glucose (test code = UGLUC) NEGATIVE NEGATIVE N Bilirubin (test code = UBILI) NEGATIVE NEGATIVE N Ketones (test code = UKET) NEGATIVE NEGATIVE N Specific [place] (test code = 1.025 1.005-1.030 A USPGR) Blood (test code = UBLD) NEGATIVE NEGATIVE N PH (test code = UPH) 5.5 4.5-8.0 A Protein (test code = UPROT) NEGATIVE NEGATIVE N Urobilinogen (test code = U UROB) 0.2 >0.2 N Nitrite (test code = UNITR) NEGATIVE NEGATIVE N Leukocyte Esterase (test code = NEGATIVE NEGATIVE N ULEUK) ED2 , [id number] 10:45:00 Test Item Value Reference Range Interpretation Comments (Urine) (test code = Negative PREGU) ED2 [id number] 10:44:00 Test Item Value Reference Range Interpretation [...] MPV) 6.8 fL 8.0-11.[address] ABDOMEN/PELVIS W/[id number] 12:29:19s/p hysterectomy; rlq pain Procedure: CT ABDOMEN/PELVIS W/CONTRASTOrder Date: 01/27/2019 10:57 AMOrdering Provider: DR SILVA ACOSTAClinical Indication: [id number]: Abdominal painComparison: September 30, 2018TECHNIQUE:Theabdomen and pelvis [...] PMDictated By: GLORY BENITEZKDate: 01/27/2019 12:23URINALYSIS WITH [id number] 12:10:00 Test Item Value Reference Range Interpretation Comments Color (test code = UCOLR) YELLOW Clarity (test code = UCLAR) CLEAR Glucose (test code = UGLUC) NEGATIVE NEGATIVE N Bilirubin (test code = UBILI) NEGATIVE NEGATIVE N Ketones (test code = UKET) NEGATIVE NEGATIVE N Specific [place] (test code = USPGR) <=1.005 1.005-1.030 A [...] code = UBACT) Trace None Seen,Trace N [id number] 11:49:00 Test Item Value Reference Range Interpretation Comments Lipase (test code = LIPA) 91 U/L 73-393 AMYLASE, [id number] 11:49:00 Test Item Value Reference Range Interpretation Comments Amylase (test code = AMYL) 45 U/L 25-115 STAT LAB CHEM [id number] 11:25:00 Test Item Value Reference Range Interpretation [...] 0.6-1.3 L STAT LAB CBC WITH AUTO [id number] 11:23:00 Test Item Value Reference Range Interpretation [...] IG%) 0.6 % 0.0-0.4 H US PELVIS [id number] 07:55:25h/o complex right ovarian cystsProcedure: Pelvic ultrasound.CLINICAL [...] MD 12/07/20187:49 AMDictated By: WILEY VELÁZQUEZDate: 12/07/2018 07:[id number] 03:11:00 Test Item Value Reference Range Interpretation [...] 0.1 mg/dl 0.0-1.1 IBIL) STAT LAB CHEM [id number] 02:41:00 Test Item Value Reference Range Interpretation [...] 0.6-1.3 L STAT LAB CBC WITH AUTO [id number] 02:39:00 Test Item Value Reference Range Interpretation [...] IG%) 0.5 % 0.0-0.4 H URINALYSIS WITH [id number] 02:37:00 Test Item Value Reference Range Interpretation Comments Color (test code = UCOLR) YELLOW Clarity (test code = UCLAR) CLEAR Glucose (test code = UGLUC) 500 NEGATIVE A Bilirubin (test code = UBILI) NEGATIVE NEGATIVE N Ketones (test code = UKET) TRACE NEGATIVE A Specific [place] (test code = USPGR) >=1.030 1.005-1.030 A [...] = UBACT) 2+ None Seen,Trace A CULTURE, [id number] 07:39:00CULTURE RIGHT ABDOMEN WOUND CARE DEPT Specimen: [...] ICR (+/-) Negative -XR CHEST AP/PA 1 [id number] 05:15:17Procedure: XR CHEST AP/PA 1 VIEWOrder Date: 09/30/2018 8:28 PMOrdering Provider: DIMAS Haskinsinical Indication: [id number]: Acute chest painComparison: May 13, 2017Findings:Cardiac size [...] 201812:42 AM CDT.Dictated By: REHAN AZARDate: 10/01/2018 00:[id number] 21:37:00 Test Item Value Reference Range Interpretation [...] 0.5 mg/dl 0.0-1.1 IBIL) STAT LAB CHEM [id number] 21:10:00 Test Item Value Reference Range Interpretation [...] 0.6-1.3 L STAT LAB CBC WITH AUTO [id number] 21:09:00 Test Item Value Reference Range Interpretation [...] = IG%) 0.3 % 0.0-0.4 OVARY W/WO TUBE,FHT-[id number] 12:44:00 RUN DATE: 09/04/18 [facility] PAGE 1 RUN TIME: 1454 Specimen Inquiry RUN USER: INTERFACE PATIENT: LAUREN BETH [facility] #: [id number] LOC: KOURTNEY #: [id number] AGE/SX: 33/F ROOM: [facility] RE09/02/18REG DR: Elmer Flores : [birth year] BED: A DIS: 09/03/18 STATUS: DIS [place]y TLOC: SPEC #: [id number] RECD: 09/02/18 STATUS: KWAME RADHA #: [id number] MELISSA: 09/02/18- SUBM DR: Elmer Flores III ENTERED: 09/03/18 SP TYPE: MUSA PELAYO DR: ORDERED: LEVEL IV CODES: [id number] - OVARY, NOS PROCEDURES: LEVEL IV (Incomplete) TISSUES: OVARY, NOS - RIGHT OVARIAN CYST CLINICAL HISTORY 33 year old, acute pelvic pain (wpd) FINAL DIAGNOSIS Right ovarian cyst, excision: - benign simple cyst of ovary Tissue code 1 CPT code(s): 93928 [facility] 09/04/18 GROSS DESCRIPTION ANATOMIC SOURCE OF [...] with multiple yellow-orange, centrally hemorrhagic corpora lutea. Analytical Lab Analyst sections are submitted as Aaalyssa hollis/wpchin 09/03/18 @ 4883 Signed Amaris Wharton MD 09/04/18 1244 END OF REPORT CBC W/AUTO [id number] 03:10:00 Test Item Value Reference Range Interpretation [...] NORMAL NORMAL code = PLTMR) CHEMISTRY 7 [id number] 14:15:00 Test Item Value Reference Range Interpretation [...] CA) 9.2 mg/dL 8.4-10.2 N CBC W/AUTO [id number] 13:42:00 Test Item Value Reference Range Interpretation [...] NORMAL NORMAL code = PLTMR) US INTRAVAGINAL [id number] 12:35:09Procedure: Pelvic ultrasound.CLINICAL INDICATION: Pelvic pain. Status [...] VELÁZQUEZ.Date: 09/01/2018 12:28STAT LAB CBC WITH AUTO [id number] 11:31:00 Test Item Value Reference Range Interpretation [...] 09/01/2018 11:31 ONLY AVAILABLE 8A-12MNCT ABDOMEN/PELVIS W/O [id number] 11:11:01MLP C Procedure: CT ABDOMEN/PELVIS W/O CONTRASTOrder Date: 09/01/2018 9:28 AMOrdering Provider: LEANDRA LORENZANAClinical Indication: [id number]: Abdominal pain. Left lower quadrant painComparison: 12/24/2017TECHNIQUE:CT [...] By: GLORY BENITEZKDate: 09/01/2018 11:04STAT LAB CHEM [id number] 10:26:00 Test Item Value Reference Range Interpretation [...] L ONLY AVAILABLE 8A-12MNSTAT LAB URINALYSIS WITHOUT [id number] 09:59:00 Test Item Value Reference Range Interpretation Comments Color (test code = UCOLR) Yellow Lt. Yellow A Clarity (test code = UCLAR) Clear Glucose (test code = UGLUC) NEGATIVE Negative A Bilirubin (test code = UBILI) NEGATIVE Negative A Ketones (test code = UKET) NEGATIVE Negative A Specific [place] (test code = USPGR) 1.015 1.005-1.030 A Blood (test code = UBLD) NEGATIVE Negative A PH (test code = UPH) 7.0 4.5-8.0 A Protein (test code = UPROT) NEGATIVE Negative A Urobilinogen (test code = U UROB) 0.2 >0.2 N Nitrite (test code = UNITR) NEGATIVE Negative A Leukocyte Esterase (test code = NEGATIVE Negative A ULEUK) ONLY AVAILABLE 8A-12MNUS INTRAVAGINAL [id number] 13:26:23Procedure: Pelvic ultrasound.CLINICAL INDICATION: PELVIC PAIN: Pain-Pelvic. [...] VELÁZQUEZDate: 05/13/2018 13:20STAT LAB CBC WITH AUTO [id number] 12:22:00 Test Item Value Reference Range Interpretation [...] 0.0-0.4 IG%) STAT LAB CBC WITH AUTO [id number] 11:54:00 Test Item Value Reference Range Interpretation [...] 0.5 % 0.0-0.4 H IG%) ONLY AVAILABLE 8A-12[facility] URINALYSIS WITHOUT [id number] 11:25:00 Test Item Value Reference Range Interpretation Comments Color (test code = UCOLR) Yellow Lt. Yellow A Clarity (test code = UCLAR) Clear Glucose (test code = UGLUC) NEGATIVE Negative A Bilirubin (test code = UBILI) NEGATIVE Negative A Ketones (test code = UKET) NEGATIVE Negative A Specific [place] (test code = USPGR) 1.020 1.005-1.030 A Blood (test code = UBLD) NEGATIVE Negative A PH (test code = UPH) 7.0 4.5-8.0 A Protein (test code = UPROT) NEGATIVE Negative A Urobilinogen (test code = U UROB) 0.2 >0.2 N Nitrite (test code = UNITR) NEGATIVE Negative A Leukocyte Esterase (test code = NEGATIVE Negative A ULEUK) ONLY AVAILABLE 8A-12[facility] , [id number] 11:25:00 Test Item Value Reference Range Interpretation Comments (Urine) (test code = Negative PREGU) ONLY AVAILABLE -12[facility] CHEM [id number] 11:23:00 Test Item Value Reference Range Interpretation [...] mg/dl 0.6-1.3 L ONLY AVAILABLE 8A-12MNUS INTRAVAGINAL [id number] 12:50:53Procedure: Pelvic ultrasound.CLINICAL INDICATION: Right adnexal mass. [...] PMDictated By: WILEY VELÁZQUEZDate: 12/24/2017 12:50URINALYSIS WITH [id number] 10:22:00 Test Item Value Reference Range Interpretation Comments Color (test code = UCOLR) Yellow Clarity (test code = UCLAR) Clear Glucose (test code = UGLUC) NEGATIVE NEGATIVE N Bilirubin (test code = UBILI) NEGATIVE NEGATIVE N Ketones (test code = UKET) NEGATIVE NEGATIVE N Specific [place] (test code = USPGR) 1.025 1.005-1.030 A [...] = UBACT) Trace None Seen,Trace N LIPASE, [id number] 10:05:00 Test Item Value Reference Range Interpretation Comments Lipase (test code = LIPA) 40 U/L 8-223 [id number] 10:05:00 Test Item Value Reference Range Interpretation [...] 4 - SerumAlbu min)] EGFR if >60 Welsh (test code mL/min/1.73m\\ = EGFRAA) S\\2 EGFR if Non- >60 Estimate d Glomerular Welsh (test code mL/min/1.73m\\ Filtrat ion Rate (eGFR) [...] STONE)Order date: 12/24/2017 8:36 AMOrdering Provider: QUINTIN LUCASlinical Indication: ABD PAIN: Pain- Abdominalbilateral flank pain [...] MD 12/24/20179:32 AMDictated By: WILEY VELÁZQUEZDate: 12/24/2017 09:38[facility] WITH AUTO [id number] 09:26:00 Test Item Value Reference Range Interpretation [...] CDT.Dictated By: MARVIN DOBBSDate: 06/21/2017 03:20URINALYSIS WITH [id number] 03:20:00 Test Item Value Reference Range Interpretation Comments Color (test code = UCOLR) YELLOW Clarity (test code = UCLAR) CLEAR Glucose (test code = UGLUC) NEGATIVE NEGATIVE N Bilirubin (test code = UBILI) NEGATIVE NEGATIVE N Ketones (test code = UKET) NEGATIVE NEGATIVE N Specific [place] (test code = 1.020 1.005-1.030 A USPGR) [...] UBACT) None Seen None Seen,Trace N er [id number] 03:07:00 Test Item Value Reference Range Interpretation [...] 4 - SerumAlbu min)] EGFR if >60 Welsh (test code mL/min/1.73m\\ = EGFRAA) S\\2 EGFR if Non- >60 Estimate d Glomerular Welsh (test code mL/min/1.73m\\ Filtrat ion Rate (eGFR) [...] of c hronic kidney failure. er 16LIPASE, [id number] 03:07:00 Test Item Value Reference Range Interpretation Comments Lipase (test code = LIPA) 61 U/L 8-223 er 16CBC WITH AUTO [id number] 03:05:00 Test Item Value Reference Range Interpretation [...] 0.0-0.4 IG%) er 16XR CHEST 2 PA [id number] 19:56:04Procedure: XR CHEST 2 PA LATERALExam date: 05/13/2017 3:53 PMOrdering Provider: DR ASA Espan[place] inical Indication: fatigue, Chest painComparison: March 15, 2016Findings:Cardiomediastinal silhouette is within normal limits.The lungs are clear.No pleural effusion or pneumothorax. Osseous structures are nonacute.No evidence of active tuberculosis.Impression:No acute cardiopulmonary process.This final report was electronically signed by Dr Wiley Velázquez MD 05/13/20177:49 PMDictated By: WILEY VELÁZQUEZDate: 05/13/2017 19:[id number] 16:53:00 Test Item Value Reference Range Interpretation [...] 4 - SerumAlbu min)] EGFR if >60 Welsh (test code mL/min/1.73m\\ = EGFRAA) S\\2 EGFR if Non- >60 Estimate d Glomerular Welsh (test code mL/min/1.73m\\ Filtrat ion Rate (eGFR) [...] NOTED ON THE RE PORT. URINALYSIS WITH [id number] 18:25:00 Test Item Value Reference Range Interpretation Comments Color (test code = UCOLR) YELLOW Clarity (test code = UCLAR) CLEAR Glucose (test code = UGLUC) NEGATIVE NEGATIVE N Bilirubin (test code = UBILI) NEGATIVE NEGATIVE N Ketones (test code = UKET) NEGATIVE NEGATIVE N Specific [place] (test code = 1.025 1.005-1.030 A USPGR) [...] (test code = 0.1 mg/dl 0.0-1.1 IBIL) [id number] 18:21:00 Test Item Value Reference Range Interpretation [...] mg/dl 8.4-10.2 = CALC) EGFR if >60 Welsh (test code mL/min/1.73m\\ = EGFRAA) S\\2 EGFR if Non- >60 Estimate d Glomerular Welsh (test code mL/min/1.73m\\ Filtrat ion Rate (eGFR) [...] c hronic kidney failure. CBC WITH AUTO [id number] 18:04:00 Test Item Value Reference Range Interpretation [...]
[2022-01-20] MEDS ORDERED: ONDANSETRON 4 MG/2 ML VIAL ONE ×2 (00:45→02:35)
[2022-01-20] MEDS ORDERED: MORPHINE 4 MG/ML SYR ONE (00:45)
[2022-01-20] MEDS ORDERED: NA CHLORIDE 0.9% 1,000 ML ONE (00:45)
[2022-01-20 01:28] LABS: Absolute Lymphocytes (CBC) 1.7 K/uL (0.7-4.9); Hematocrit 33.4 % (36.0-45.0); Lymphocytes % 31.7 % (15.3-44.8); MCV 87.2 fL (80-100); MPV 7.1 fL (7.6-11.3); RBC Red Blood Cell Count 3.83 M/uL (3.86-4.86)
[2022-01-20 01:38] LABS: Albumin 2.9 g/dL (3.4-5.0); Bilirubin Total 0.2 mg/dL (0.2-1.0); Potassium 3.8 mmol/L (3.5-5.1); Protein, Total 6.3 g/dL (6.4-8.2)
[2022-01-20] MEDS ORDERED: HYDROMORPHONE HCL 1 MG/ML INJ ONE (02:35)
[2022-01-20] MEDS ORDERED: PROMETHAZINE INJ 25 MG/ML AMP ONE (02:58)
--- NOTE | 2022-01-20 04:46 | EDPHYS ---
Physician Documentation [facility] Name: Hong Pace Age: 36 yrs Sex: Female : 1985 Arrival Date: 01/20/2022 Time: 00:06 Bed 16 Private MD: ED Physician Soledad Almodovar HPI: 01/20 00:20 This 36 yrs old Female presents to ER via Ambulatory with complaints of Abdominal Pain, jmm Nausea/Vomiting. 00:20 The patient presents with abdominal pain. Onset: The symptoms/episode began/occurred jmm just prior to arrival. The symptoms do not radiate. Associated signs and symptoms:. The symptoms are described as sharp. Modifying factors: The symptoms are alleviated by nothing, the symptoms are aggravated by nothing. The patient has experienced similar episodes in the past, several times. 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 - Social history:: Smoking status: Patient reports the use of cigarette tobacco products, denies chronic smoking, but will smoke occasionally. ROS: 00:20 Constitutional: Negative for fever, chills, and weight loss, Cardiovascular: Negative jmm for chest pain, palpitations, and edema, Respiratory: Negative for shortness of breath, cough, wheezing, and pleuritic chest pain. 00:20 Abdomen/GI: Positive for abdominal pain, nausea and vomiting. 00:20 All other systems are negative. Exam: 00:20 Constitutional: This is a well developed, well nourished patient who is awake, alert, jmm and in no acute distress. Head/Face: atraumatic. Eyes: EOMI, no conjunctival erythema appreciated ENT: Moist Mucus Membranes Neck: Trachea midline, Supple Chest/axilla: Normal chest wall appearance and motion. Cardiovascular: Regular rate and rhythm. No edema appreciated Respiratory: Normal respirations, no respiratory distress appreciated 00:20 Back: Normal ROM Skin: General appearance color normal MS/ Extremity: Moves all extremities, no obvious deformities appreciated, no edema noted to the lower extremities Neuro: Awake and alert Psych: Behavior is normal, Mood is normal, Patient is cooperative and pleasant 00:20 Abdomen/GI: Inspection: abdomen appears normal, Bowel sounds: normal, Palpation: soft, mild abdominal tenderness, in the right upper quadrant and right lower quadrant. Vital Signs: 00:32 BP 124 / 79; Pulse 79; Resp 16; Temp 98.5(O); Pulse Ox 100% on R/A; Weight 102.06 kg ll3 (R); Height 5 ft. 3 in. (160.02 cm) (R); Pain 10/10; 02:00 BP 121 / 69; Pulse 76; Resp 18; Pulse Ox 100% on R/A; ll3 03:00 BP 128 / 91; Pulse 81; Resp 18; Pulse Ox 98% on R/A; ll3 04:58 BP 120 / 74; Pulse 81; Resp 16; Pulse Ox 98% on R/A; ll3 00:32 Body Mass Index 39.86 (102.06 kg, 160.02 cm) 3 MDM: 00:20 Patient medically screened. [facility] 04:44 Data reviewed: vital signs, nurses notes. ED course: CT scan negative her labs are sp3 normal. Patient has had multiple lysis of additions surgeries as per her. Requesting fentanyl to make at home for the car ride. We will give her 1 dose and discharged home with follow-up with general surgery in [place].. 07 00:28 Order name: CBC with Diff; Complete Time: 03:06 [facility] 01/20 00:28 Order name: CMP; Complete Time: 03:06 [facility] 01/20 00:28 Order name: Lipase; Complete Time: 03:06 [facility] 01/20 00:28 Order name: CT Abd/Pelvis - IV Contrast Only [facility] 01/20 00:28 Order name: IV Saline Lock; Complete Time: 01:09 [facility] 01/20 00:28 Order name: Labs collected and sent; Complete Time: 01:09 [facility] Administered Medications: 01:15 Drug: morphine 4 mg Route: IVP; Infused Over: 4 mins; Site: right forearm; ll3 02:33 Follow up: Response: No adverse reaction; No change in condition 3 01:16 Drug: NS 0.9% 1000 ml Route: IV; Rate: 1 bolus; Site: right forearm; ll3 04:58 Follow up: Response: No adverse reaction; IV Status: Completed infusion; IV Intake: ll3 1000ml 01:16 Drug: Zofran (Ondansetron) 4 mg Route: IVP; Site: right forearm; ll3 02:33 Follow up: Response: No adverse reaction; No change in condition ll3 02:33 Drug: Dilaudid (HYDROmorphone) 1 mg Route: IVP; Site: right forearm; ll3 04:57 Follow up: Response: No adverse reaction; No change in condition ll3 02:33 Drug: Zofran (Ondansetron) 4 mg Route: IVP; Site: right forearm; ll3 04:57 Follow up: Response: No adverse reaction; No change in condition ll3 02:53 Drug: Phenergan (promethazine) 12.5 mg Route: IVP; Site: right forearm; kd3 04:57 Follow up: Response: No adverse reaction; No change in condition ll3 04:52 Drug: fentaNYL (PF) 50 mcg Route: IVP; Site: right forearm; ll3 04:58 Follow up: Response: No adverse reaction ll3 Disposition Summary: 01/20/22 04:46 Discharge Ordered Location: Home sp3 Condition: Stable sp3 Diagnosis - Abdominal pain, Generalized sp3 Discharge Instructions: - Discharge Summary Sheet sp3 - Abdominal Pain, Adult sp3 Forms: - Medication Reconciliation Form sp3 - Thank You Letter sp3 - Antibiotic Education sp3 - Prescription Opioid Use sp3 Prescriptions: - Tramadol 50 mg Oral Tablet - take 1 tablet by ORAL route every 8 hours as needed; 12 tablet; Refills: 0, sp3 Product Selection Permitted Signatures: Dispatcher [employer] Phil Cage PA PA jmm Patel, Setul, MD MD sp3 Cata Whitehead RN RN ll3 Oralia Varma RN RN kd3
--- NOTE | 2022-01-20 04:46 | ER ---
Nurse's Notes [facility] Name: Hong Pace Age: 36 yrs Sex: Female : 1985 Arrival Date: 01/20/2022 Time: 00:06 Bed 16 Private MD: Diagnosis: Abdominal pain, Generalized Presentation: 01/20 00:25 Chief complaint: Patient states: c/o sharp, stabbing abdominal pain 10/10, states "I ll3 started vomiting because the pain is so bad". Coronavirus screen: Vaccine status: Patient reports being unvaccinated. nausea, vomiting. Ebola Screen: No symptoms or risks identified at this time. Initial Sepsis Screen: Does the patient meet any 2 criteria? No. Patient's initial sepsis screen is negative. Does the patient have a suspected source of infection? No. Patient's initial sepsis screen is negative. Risk Assessment: Do you want to hurt yourself or someone else? Patient reports no desire to harm self or others. Onset of symptoms was January 19, 2022 at 23:00. 00:25 Method Of Arrival: Ambulatory ll3 00:25 Acuity: [place] 3 ll3 Triage Assessment: 00:30 General: Appears uncomfortable, Behavior is calm, cooperative. Pain: Complains of pain ll3 in right lower quadrant Pain currently is 10 out of 10 on a pain scale. Quality of pain is described as sharp, stabbing, Pain began 2 hours ago. Is continuous. Neuro: Level of Consciousness is awake, alert, obeys commands, Oriented to person, place, time, situation. GI: Abdomen is round non-distended, Reports lower abdominal pain, nausea, vomiting. Derm: Skin is pink, warm \\T\\ dry. Musculoskeletal: Circulation, motion, and sensation intact. 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 - Social history:: Smoking status: Patient reports the use of cigarette tobacco products, denies chronic smoking, but will smoke occasionally. Screenin:59 Abuse screen: Denies threats or abuse. Nutritional screening: No deficits noted. ll3 Tuberculosis screening: No symptoms or risk factors identified. Fall Risk No fall in past 12 months (0 pts). No secondary diagnosis (0 pts). IV access (20 points). Ambulatory Aid- None/Bed Rest/Nurse Assist (0 pts). Gait- Normal/Bed Rest/Wheelchair (0 pts) Mental Status- Oriented to own ability (0 pts). Total Puentes Fall Scale indicates No Risk (0-24 pts). Assessment: 00:32 General: See triage assessment. ll3 02:18 Reassessment: Pt states the pain and nausea medicine did not help at all, ERP notified. ll3 04:20 Reassessment: No changes from previously documented assessment. Patient states symptoms ll3 have improved. Patient states symptoms have not improved. 04:58 Reassessment: No changes from previously documented assessment. Patient and/or family ll3 updated on plan of care and expected duration. Pain level reassessed. Patient is alert, oriented x 3, equal unlabored respirations, skin warm/dry/pink. Vital Signs: 00:32 BP 124 / 79; Pulse 79; Resp 16; Temp 98.5(O); Pulse Ox 100% on R/A; Weight 102.06 kg ll3 (R); Height 5 ft. 3 in. (160.02 cm) (R); Pain 10/10; 02:00 BP 121 / 69; Pulse 76; Resp 18; Pulse Ox 100% on R/A; ll3 03:00 BP 128 / 91; Pulse 81; Resp 18; Pulse Ox 98% on R/A; ll3 04:58 BP 120 / 74; Pulse 81; Resp 16; Pulse Ox 98% on R/A; ll3 00:32 Body Mass Index 39.86 (102.06 kg, 160.02 cm) ll3 ED Course: 00:06 Patient arrived in ED. ja2 00:17 Phil Coley PA is PHCP. jmm 00:17 Soledad Almodovar MD is Attending Physician. jmm 00:25 Cata Whitehead, [place] is Primary Nurse. ll3 00:30 Triage completed. ll3 00:30 Arm band placed on Patient placed in an exam room, on a stretcher, on pulse oximetry. ll3 01:11 Inserted saline lock: 22 gauge in right forearm, using aseptic technique. Blood ds4 collected. 02:04 CT Abd/Pelvis - IV Contrast Only In Process Unspecified. EDMS 04:59 Patient has correct armband on for positive identification. Bed in low position. Call ll3 light in reach. Side rails up X 1. 04:59 No provider procedures requiring assistance completed. IV discontinued, intact, ll3 bleeding controlled, No redness/swelling at site. Pressure dressing applied. Administered Medications: 01:15 Drug: morphine 4 mg Route: IVP; Infused Over: 4 mins; Site: right forearm; ll3 02:33 Follow up: Response: No adverse reaction; No change in condition ll3 01:16 Drug: NS 0.9% 1000 ml Route: IV; Rate: 1 bolus; Site: right forearm; ll3 04:58 Follow up: Response: No adverse reaction; IV Status: Completed infusion; IV Intake: ll3 1000ml 01:16 Drug: Zofran (Ondansetron) 4 mg Route: IVP; Site: right forearm; ll3 02:33 Follow up: Response: No adverse reaction; No change in condition ll3 02:33 Drug: Dilaudid (HYDROmorphone) 1 mg Route: IVP; Site: right forearm; ll3 04:57 Follow up: Response: No adverse reaction; No change in condition ll3 02:33 Drug: Zofran (Ondansetron) 4 mg Route: IVP; Site: right forearm; ll3 04:57 Follow up: Response: No adverse reaction; No change in condition ll3 02:53 Drug: Phenergan (promethazine) 12.5 mg Route: IVP; Site: right forearm; kd3 04:57 Follow up: Response: No adverse reaction; No change in condition ll3 04:52 Drug: fentaNYL (PF) 50 mcg Route: IVP; Site: right forearm; ll3 04:58 Follow up: Response: No adverse reaction ll3 Medication: 04:59 VIS not applicable for this client. ll3 Intake: 04:58 IV: 1000ml; Total: 1000ml. ll3 Outcome: 04:46 Discharge ordered by . sp3 04:59 Discharged to home ambulatory. ll3 04:59 Condition: stable 04:59 Discharge instructions given to patient, significant other, Instructed on discharge instructions, follow up and referral plans. medication usage, Demonstrated understanding of instructions, follow-up care, medications, Prescriptions given X 1. 05:00 Patient left the ED. ll3 Signatures: Dispatcher [employer] EDMS Phil Coley PA PA jmm Swanson, Donovan ds4 Soledad Almodovar MD MD sp3 Leslie Estevez2 Cata Whitehead RN RN ll3 Oralia Varma RN RN kd3 Corrections: (The following items were deleted from the chart) 02:19 02:18 Reassessment: No changes from previously documented assessment. Patient and/or ll3 family updated on plan of care and expected duration. Pain level reassessed. Patient is alert, oriented x 3, equal unlabored respirations, skin warm/dry/pink. ll3
[2022-01-20] MEDS ORDERED: FENTANYL CITR 100 MCG/2 ML ONE (04:53)
[2022-01-20 05:19] VITALS: TEMP 98.5
[2022-01-20 05:22] VITALS: O2SAT 98
[2022-01-20 05:24] VITALS: BP 120/74
--- NOTE | 2022-01-22 09:52 | RAD REPORT ---
EXAM DESCRIPTION: CT - Abdomen Pelvis W Contrast - 01/20/2022 6:44 am CLINICAL HISTORY: 36 years Female right sided abdominal pain TECHNIQUE: Axial CT imaging of the abdomen and pelvis was performed following the administration of intravenous contrast.. Oral contrast was not administered. Sagittal and coronal reconstructed image s were then performed. The CT study is performed according to ALARA (as low as reasonably achievabl e) or ALARA/IMAGE GENTLY, with automatic adjustment of mA and/or kV according to patient size. Performed on: 01/20/2022 at 2:01 AM. COMPARISON: CT abdomen and pelvis with IV contrast performed on 11/08/2021, 11/07/2021, 09/20/2021 and 09/07/2021 FINDINGS: Lung bases: The lung bases are clear. There is minimal bibasilar atelectasis and/or fibros is. Liver: The liver measures approximately 18 cm in craniocaudal dimension. No focal hepatic abnormaliti es are identified. Liver attenuation is within normal limits. The hepatic and portal veins are patent . Spleen: The spleen is normal is size, configuration and attenuation. Gallbladder and bile duct: The gallbladder is surgically absent. There is no biliary ductal dilatat ion. Pancreas: The pancreas is grossly normal in size and configuration. Adrenal Glands: The adrenal glands are normal in size and configuration. Kidneys: The kidneys are normal in size and configuration. There is no evidence of hydronephrosis. Th ere are punctate bilateral nonobstructing renal calculi. No definite solid or cystic renal mass lesio ns are identified. Stomach: There are remote postsurgical changes of the stomach consistent with a gastric sleeve proced ure. There is no definite hiatal hernia. Bowel: The bowel gas pattern is non specific and non obstructive. There is moderate fecal residue wit hin the proximal colon and cecum. Appendix: The appendix is not identified and may be surgically absent. Free air: There is no evidence of free air. Free fluid: There is no evidence of free fluid. Vasculature: The aorta is normal in caliber and contour. The inferior vena cava is grossly unremarkab le. Lymphadenopathy: No pathologic lymphadenopathy is identified. Bladder: The bladder is well distended and smooth in contour. Reproductive: The uterus is surgically absent. Bones: No acute osseous abnormalities are identified. There is stable sclerosis of the inferior left iliac wing. Soft tissues: No acute soft tissue abnormalities are identified. There are stable small fat-containin g ventral supraumbilical and umbilical wall hernias. IMPRESSION: 1. No evidence of acute intra-abdominal or intrapelvic pathology. 2. Remote postsurgical changes of the stomach consistent with a gastric sleeve procedure. 3. Moderate fecal residue in the ascending colon and cecum. 4. Remote cholecystectomy and hysterectomy. 5. Punctate bilateral nonobstructing renal calculi. 6. Stable small fat-containing ventral supraumbilical and umbilical wall hernias. Electronically signed by: Rebekah Munoz DO 01/20/2022 4:30 AM CDT Due to temporary technical issues with the PACS/Fluency reporting system, reports are being signed by the in house radiologists without review as a courtesy to insure prompt reporting. The interpreting radiologist is fully responsible for the content of the report.
== END 2022-01-20 05:00 | disposition home or self-care (01) ==
LOC: ER 00:04
DX: R10.84 Generalized abdominal pain (principal); R11.2 Nausea with vomiting, unspecified; F17.210 Nicotine dependence, cigarettes, uncomplicated; Z88.5 Allergy status to narcotic agent; Z88.6 Allergy status to analgesic agent
CPT/HCPCS: 36415; 74177; 80053; 83690; 85025; 96361; 96374; 96375; 99284; J1170; J2405; J2550; J3010; J7030; Q9967

== ENCOUNTER 2022-02-06 23:54 | Emergency (ER) | payer SELFPAY ==
--- OUTSIDE RECORDS SUMMARY | 2022-02-06 23:57 | XMS REPORT | Clinical Summary ---
:1985 Author Organization [facility] MD [facility] Center Address [address] [place] [address] Care Team Providers Name Role Phone Keila Valentine MD Primary Care Provider Navi Arango RECONCILIATION COORDINATOR Unavailable Allergies Active Allergy Reactions Severity Noted [...] melan nu of skin (Primary Dx) after 02/06/2021 Immunizations Name Administration Dates Next Due Influenza [...] OVARIAN CYST SURGERY 08/29/2018 - Right 09/28/2018 AK EXC SKIN MALIG 0.6-1 CM 09/23/2018 Abdomen/Right Proce dure: EXCISION OF TRUNK,ARM,LEG MALIGNANT LESION OF TRUNK, right epi gastric; Surgeon: Nicolasa Valentine MD; Location: [facility] OR; Service: SURG ON C [...] My thyroid has been removed Depressive disorder 2004 Anxiety 2005 Family History Medical History Relation [...] Visit Dermatology Lisbeth Shannon M D [address] [place], [place] [address] (Wo rk) Health Maintenance Due Date Last Done Comments COVID-19 Vaccination (#1) 01/11/1987 Results Not on fileafter 02/06/2021 Advance Directives Code Status Date Activated Date Inactivated Comments Full Code 10/04/2018 8:21 PM 10/08/2018 5:55 PM Full Code 09/23/2018 1:48 PM 09/23/2018 6:55 PM Care Teams Surgeon'S Assistant Relationship Specialty Start Date End Date Keila Valentine MD PCP - General Surgical Oncology 08/26/18 [address] [place] [address] Navi Arango FNP PCP - External Primary Family Practice 09/08/18 [address] [place] [address]
--- OUTSIDE RECORDS SUMMARY | 2022-02-07 00:13 | XMS REPORT | Continuity of Care Document ---
:1985 Author Organization [facility] t Address [address] [place] [address] Care Team Providers Name Role Phone Keila Valentine MD Primary Care Physician Josué Arango Attending Clinician Unavailable Ameena Dupree Attending Clinician AMEENA PRESTON Attending Clinician Unavailable Praveen Blas MD Attending Clinician EKTA BERMUDEZ Attending Clinician Unavailable Olga Clements Attending Clinician Unavailable SETH DYKES Attending Clinician Unavailable REHAN COTTON Attending Clinician Unavailable Viktoriya Wright RN Attending Clinician JUAN MENSAH Attending Clinician Unavailable CHIDIMR KSYE Attending Clinician Unavailable Tangela Perez Attending Clinician Unavailable DO WYATT SOTOMAYOR Attending Clinician Unavailable AMBROSIO MUÑOZ Attending Clinician Unavailable PRAVEEN BLAS Attending Clinician Unavailable ELIUD STAFFORD Attending Clinician Unavailable LIZBETH WOLFE Attending Clinician Unavailable JODY, FLOYD Attending Clinician Unavailable POLLY HOGN Attending Clinician Unavailable DR LEXUS MCINTOSH Attending Clinician Unavailable QUINTIN BRITO Attending Clinician Unavailable EKTA BERMUDEZ Admitting Clinician Unavailable Physician, No Primary or Family Admitting Clinician UnavailSETH Braun Admitting Clinician Unavailable REHAN COTTON Admitting Clinician Unavailable JUAN MENSAH Admitting Clinician Unavailable CHIDI, MR CHEUNG Admitting Clinician Unavailable DO WYATT SOTOMAYOR Admitting Clinician Unavailable AMBROSIO MUÑOZ Admitting Clinician Unavailable ELIUD STAFFORD Admitting Clinician Unavailable LIZBETH WOLFE Admitting Clinician Unavailable FLOYD VERA Admitting Clinician Unavailable POLLY HONG Admitting Clinician Unavailable DR LEXUS MCINTOSH Admitting Clinician Unavailable QUINTIN BRITO Admitting Clinician Unavailable MIKY THOMPSON Admitting Clinician Unavailable DIMAS HAQUE Admitting Clinician Unavailable DR ASA BLOOM Admitting Clinician Unavailable Payers Payer Name Policy Type Policy Number Effective Date Expiration Date S ramakrishna [id number] 1959 00:00:00 [id number] 1959 00:00:00 PHCS GENERIC [id number] 2018 00:00:00 Problems Condition Condition Condition Status [...] [facility] cause cause 00:00: Memoria unknown unknown 00 l (LUF/LI V/SA) Abdominal Abdominal Problem Active [facility] 00:[facility]: Memoria 00 l (LUF/LI V/SA) Kidney Kidney Problem Active [facility] stone stone 8-[facility] 00:[facility]: Memoria 00 l (LUF/LI V/SA) Low back Low back Problem [facility]: Memoria 00 l (LUF/LI V/SA) Unspecifie Unspecifie Problem Active [facility] fall d fall 01-24 [facility] 00[facility]00: Memoria 00 l (LUF/LI V/SA) Chronic Chronic Problem Active [facility] abdominal abdominal 6-10 [facility] pain pain 00:00: Memoria 00 l (LUF/LI V/SA) Tension-ty Tension-ty Problem Active [facility] pe 1 [facility] headache headache 00:00: Memori a 00 l (LUF/LI V/SA) Constipati Constipati Problem Active 2018-[address] on on 1-17 [facility] 00:00: Memoria 00 l (LUF/LI V/SA) Cyst of Cyst of Problem Active [facility] right 6 [facility] ovary ovary 00:00: Memoria 00 l (LUF/LI V/SA) Surgical Surgical Disease Active Unive rs site site 4-07 [place] [facility] Encounter Encounter Disease Active Overview: Univers for other for other 09-08 Formattin i ty of preprocedu preprocedu 00:00: g of this [place] ral ral 00 note MD payneinasandra examindiana might be Gian payton different n from [...] rs active active ity of problems problems [facility] Allergies, Adverse Reactions, Alerts Allergy Allergy Status Severity Reaction(s) Onset Inactive Treating Comm ents Source Name Type Date Date Clinician ketorola DA Active U rash [facility] 2- [place] 00:00: d 00 [facility] KETOROLA DRUG Active Low Rash 2020-07 Univers C INGREDI 08-22 ity of 00:00: [place] 00 [facility] Ketorola Propensi Active Rash 2020-07 Univer s c ty to 08-22 ity of adverse 00:00: [place] reaction 00 [facility] ketorola DA Active MA [facility] 9-10 [facility] [place] ketorola DA Active U [facility] 9 [place] 00:00: d 00 [facility] ketorola DA Active U rash [facility] c 03-24 [place] 00:00: d 00 [facility] Ketorola Drug Active Itching Univers c Allergy 07-19 ity of 00:00: [place] 00 MD Gian payton [facility] Toradol Adverse Active Info Not Common Reaction Available Spiri t - [facility] Family History Family Member Diagnosis Comments Start Date Stop Date Source Natural mother -Breast cancer [facility] [place] [facility] Social History Social Habit Start Date Stop Date Quantity Comments Source Exposure to 2021-11-19 2021-11-29 Not sure University SARS-CoV-2 (event) 00:00:00 17:39:00 [facility] Alcohol intake 2018-10-04 2018-10-04 Current University of 00:00:00 00:00:00 non-drinker of Jeffrey muñoz alcohol [facility] (finding) Cigarette 2018-09-04 2018-09-04 University of pack-years 00:00:00 00:00:00 [place] MD Bah [facility] Tobacco use and 2018-09-04 2018-09-04 Smokeless Universit y of exposure 00:00:00 00:00:00 tobacco non-user [place] [facility] Cigarettes smoked 2018-09-04 2018-09-04 Univers ity of current (pack per 00:00:00 00:00:00 [place] Zoltan Neely ) - Reported Cancer Ce nter History of tobacco 2004-07-01 2017-05-11 Smoker Univer sity of use 00:00:00 00:00:00 [place] MD Olvin banuelos [facility] Sex Ass[birth year] At [birth year] Universit y of 00:00:00 00:00:00 [place] MD Olvin banuelos [facility] Smoking Status Start Date Stop Date Source Never smoker University [facility] Ex-smoker 2018-09-04 00:00:00 2018-09-04 00:00:00 [facility] [place] Medications Ordered Filled Start Stop Current Ordering Indication Dosage Frequency Signature Comments Components Source Medication Medication Date Date Medication? Clinician (SIG) Name Name methylPREDN Yes [id number] Take by [facility] ISolone 11-29 mouth ity of (MEDROL, 00:00: SEE-INSTRU Jacques as TE,) 4 mg 00 CTIONS. Medica l tablets follow Branch package directions amoxicillin 2021- Yes [id number] 1{tbl} Take 1 Univers -clavulanat 11-29 tablet [...] s: acute pain estrogens, Yes Take by [facility] ers conjugated 08-29 mouth. ity of (PREMARIN 16:19: [place] ORAL) 44 Medical Branch naproxen Yes [id number] 500mg Take 1 U nivers (NAPROSYN) 2-02 tablet by ity of 500 mg 00:00: mouth 2 [place] tablet 00 (two) Medical times Branch daily with meals. albuterol 2020-07 Yes [id number] 2{puff} Inhale 2 Univers 90 2-22 Puffs [...] 0-23 [facility] 00:00: - [facility] 00 [facility] estrogens, 2018-07 Yes Take by Univ ers conjugated 0-23 mouth ity of (PREMARIN 00:00: daily. [place] ORAL) 00 [facility] estrogens, 2018-07 Yes Take by Univ ers conjugated 0-23 mouth ity of (PREMARIN 00:00: daily. [place] ORAL) 00 [facility], 2018-07 Yes Take by Univ ers conjugated 0-23 mouth ity of (PREMARIN 00:00: daily. [place] ORAL) 00 [facility] Estradiol Estradiol 2018-07 Yes Kaywin 1 tablet Common 0-01 [facility] 00:00: - [facility] 00 [facility] citalopram Yes Univers (CeleXA) 40 9-10 ity of mg tablet 00:00: [place] 00 [facility] citalopram Yes Univers (CeleXA) 40 9-10 ity of mg tablet 00:00: [place] MD Gian payton [facility] citalopram Yes Univers (CeleXA) 40 9-10 ity of mg tablet 00:00: [place] 00 MD Gian payton [facility] levothyroxi Yes Univer s ne 175 mcg 8-10 ity of cap 00:00: MD Gian payton [facility] levothyroxi Yes Univer s ne 175 mcg 8-10 ity of cap 00:00: MD Gian payton [facility] levothyroxi Yes Univer s ne 175 mcg 8-10 ity of cap 00:00: MD Gian payton [facility] zolpidem Yes Univers (AMBIEN) 10 07-01 ity of mg tablet 00:00: MD Gian payton [facility] zolpidem Yes Univers (AMBIEN) 10 07-01 ity of mg tablet 00:00: MD Gian payton [facility] zolpidem Yes Univers (AMBIEN) 10 07-01 ity of mg tablet 00:00: MD Gian payton [facility] acetaminoph acetaminoph Yes 1 Q5.00H [facility] [...] C [facility] conjugated conjugated Gutierrez es (RETIREMENT) 1.25 (RETIREMENT) 1.25 Mem oria MG Oral MG Oral [...] [facility] conjugated conjugated daily Olamide kes (RETIREMENT) 1.25 (RETIREMENT) 1.25 Mem oria MG Oral MG Oral l Tablet Tablet (LUF/LI V/SA) levothyroxi levothyroxi Yes 150ug 1xD orally [facility] ne ne daily [facility] Memoria l (LUF/LI V/SA) Celexa Celexa Yes Kaywin 1 tablet Commo n Aiden [facility] Levothyroxi Levothyroxi Yes Kaywin 1 tablet Common ne Sodium ne Sodium Aiden on an Sp karla empty - [facility] stomach in [facility] Estradiol Estradiol Yes Kaywin 1 patch to Common Aiden skin [facility] Immunizations Ordered Filled Immunization Date Status Comments [facility] e Immunization Name Name influenza, high influenza, high 2015-04-19 Completed [facility] dose seasonal, dose seasonal, 00:00:00 Memori al preservative-free preservative-free (LUF/DAVID/SA) Influenza, 2011-03-30 Completed University of Unspecified 00:00:00 [place] MD Hamilton [facility] Tdap 2011-03-30 Completed University of 00:00:00 [place] MD Olvin banuelos [facility] Influenza, 2011-03-30 Completed University of Unspecified 00:00:00 [place] MD [place] [facility] Tdap 2011-03-30 Completed University of 00:00:00 [place] MD Olvin banuelos [facility] Influenza, 2011-03-30 Completed University of Unspecified 00:00:00 [place] MD [place] [facility] Tdap 2011-03-30 Completed University of 00:00:00 Jeffrey banuelos [facility] Influenza (IM) 2009-04-05 Completed University of Preservative Free 00:00:00 [facility] Influenza (IM) 2009-04-05 Completed University of Preservative Free 00:00:00 [facility] Influenza (IM) 2009-04-05 Completed University of Preservative Free 00:00:00 [facility] Vital Signs Vital Name Observation Time Observation Value Comments Source Systolic blood 2021-11-29 22:40:00 116 mm[Hg] Univer sity of pressure [facility] Diastolic blood 2021-11-29 22:40:00 85 mm[Hg] Unive rsity [facility] Heart rate 2021-11-29 22:40:00 87 /min [facility] Body temperature 2021-11-29 22:40:00 37.28 Ericka [facility] Respiratory rate 2021-11-29 22:40:00 16 /min [facility] Body height 2021-11-29 22:40:00 162.6 cm [facility] Body weight 2021-11-29 22:40:00 103.874 kg [facility] BMI 2021-11-29 22:40:00 39.31 kg/m2 [facility] Oxygen saturation in 2021-11-29 22:40:00 98 /min [facility] blood by [facility] Pulse oximetry Branch Height 2021-04-23 [...] Center Heart rate 2021-10-26 15:16:33 92 /min [facility] Respiratory rate 2021-10-26 15:16:33 16 /min [facility] Oxygen saturation in 2021-10-26 15:16:33 98 /min University Arterial blood by Jeffrey muñoz Pulse oximetry [facility] Body Temperature 2021-04-23 00:58:00 97.8 [degF] [facility] (LUF/DAVID/SA) Pulse Rate 2021-04-23 00:58:00 116 /min [facility] (LUF/DAVID/SA) Respiratory Rate 2021-04-23 00:58:00 18 /min [facility] (F/DAVID/SA) O2% BldC Oximetry 2021-04-23 00:58:00 99 % [facility] (LUF/DAVID/SA) BP Systolic 2021-04-23 00:58:00 111 mm[Hg] [facility] (LUF/DAVID/SA) BP Diastolic 2021-04-23 00:58:00 77 mm[Hg] [facility] (LUF/DAVID/SA) Height 2021-04-23 00:58:00 64 [in_i] [facility] (LUF/DAVID/SA) Weight 2021-04-23 00:58:00 105.1 kg [facility] (LUF/DAVID/SA) BMI (Body Mass 2021-04-23 00:58:00 40 kg/m2 [facility] Index) [facility] (LUF/DAVID/SA) Body Temperature 2021-03-24 10:53:00 98.6 [degF] [facility] (LUF/DAVID/SA) Pulse Rate 2021-03-24 10:53:00 87 /min [facility] (LUF/DAVID/SA) Respiratory Rate 2021-03-24 10:53:00 18 /min [facility] (LUF/DAVID/SA) O2% BldC Oximetry 2021-03-24 10:53:00 97 % [facility] (LUF/DAVID/SA) BP Systolic 2021-03-24 10:53:00 120 mm[Hg] [facility] (LUF/DAVID/SA) BP Diastolic 2021-03-24 10:53:00 86 mm[Hg] [facility] (LUF/DAVID/SA) Height 2021-03-24 10:53:00 64 [in_i] [facility] (LUF/DAVID/SA) Weight 2021-03-24 10:53:00 105 kg [facility] (LUF/DAVID/SA) BMI (Body Mass 2021-03-24 10:53:00 40 kg/m2 [facility] Index) [facility] (LUF/DAVID/SA) Body Temperature 2021-03-10 10:55:00 98.4 [degF] [facility] (LUF/DAVID/SA) Pulse Rate 2021-03-10 10:55:00 85 /min [facility] (LUF/DAVID/SA) Respiratory Rate 2021-03-10 10:55:00 20 /min [facility] (LUF/DAVID/SA) O2% BldC Oximetry 2021-03-10 10:55:00 100 % [facility] (LUF/DAVID/SA) BP Systolic 2021-03-10 10:55:00 140 mm[Hg] [facility] (LUF/DAVID/SA) BP Diastolic 2021-03-10 10:55:00 98 mm[Hg] [facility] (F/DAVID/SA) Height 2021-03-10 10:55:00 64 [in_i] [facility] (LUF/DAVID/SA) Weight 2021-03-10 10:55:00 105.2 kg [facility] (F/DAVID/SA) BMI (Body Mass 2021-03-10 10:55:00 40 kg/m2 [facility] Index) [facility] (LUF/DAVID/SA) Pulse Rate 2021-02-23 12:32:00 67 /min [facility] (F/DAVID/SA) O2% BldC Oximetry 2021-02-23 12:32:00 98 % [facility] (LUF/DAVID/SA) BP Systolic 2021-02-23 12:32:00 112 mm[Hg] [facility] (F/DAVID/SA) BP Diastolic 2021-02-23 12:32:00 70 mm[Hg] [facility] (LUF/DAVID/SA) Heart Rate 2021-02-23 11:16:00 64 /min [facility] (F/DAVID/SA) Respiratory Rate 2021-02-23 11:16:00 14 /min [facility] (F/DAVID/SA) Body Temperature 2021-02-23 08:24:00 98.1 [degF] [facility] (F/DAVID/SA) Height 2021-02-23 08:24:00 64 [in_i] [facility] (F/DAVID/SA) Weight 2021-02-23 08:24:00 110 kg [facility] (F/DAVID/SA) BMI (Body Mass 2021-02-23 08:24:00 41.9 kg/m2 [facility] Heart Rate 2021-01-10 01:46:00 93 /min [facility] (LUF/DAVID/SA) Pulse Rate 2021-01-10 01:46:00 95 /min [facility] (LUF/DAVID/SA) Respiratory Rate 2021-01-10 01:46:00 16 /min [facility] (LUF/DAVID/SA) O2% BldC Oximetry 2021-01-10 01:46:00 97 % [facility] (LUF/DAVID/SA) BP Systolic 2021-01-10 01:46:00 103 mm[Hg] [facility] (LUF/DAVID/SA) BP Diastolic 2021-01-10 01:46:00 71 mm[Hg] [facility] (LUF/DAVID/SA) Weight 2021-01-10 00:53:00 102 kg [facility] (LUF/DAVID/SA) Body Temperature 2021-01-10 00:47:00 98.6 [degF] [facility] (LUF/DAVID/SA) Pulse Rate 2020-12-12 14:20:00 87 /min [facility] (LUF/DAVID/SA) O2% BldC Oximetry 2020-12-12 14:20:00 98 % [facility] (LUF/DAVID/SA) BP Systolic 2020-12-12 14:20:00 128 mm[Hg] [facility] (LUF/DAVID/SA) BP Diastolic 2020-12-12 14:20:00 86 mm[Hg] [facility] (LUF/DAVID/SA) Body Temperature 2020-12-12 12:39:00 98.9 [degF] [facility] (LUF/DAVID/SA) Respiratory Rate 2020-12-12 12:39:00 20 /min [facility] (F/DAVID/SA) Weight 2020-12-12 12:39:00 102 kg [facility] (LUF/DAVID/SA) Body Temperature 2020-12-08 10:27:00 98.6 [degF] [facility] (LUF/DAVID/SA) Pulse Rate 2020-12-08 10:27:00 79 /min [facility] (LUF/DAVID/SA) Respiratory Rate 2020-12-08 10:27:00 16 /min [facility] (LUF/DAVID/SA) O2% BldC Oximetry 2020-12-08 10:27:00 99 % [facility] (LUF/DAVID/SA) BP Systolic 2020-12-08 10:27:00 111 mm[Hg] [facility] (LUF/DAVID/SA) BP Diastolic 2020-12-08 10:27:00 57 mm[Hg] [facility] (LUF/DAVID/SA) Weight 2020-12-08 10:27:00 103 kg [facility] (LUF/DAVID/SA) Body Temperature 2020-11-25 00:27:00 97.9 [degF] [facility] (LUF/DAVID/SA) Pulse Rate 2020-11-25 00:27:00 82 /min [facility] (LUF/DAVID/SA) Respiratory Rate 2020-11-25 00:27:00 17 /min [facility] (LUF/DAVID/SA) O2% BldC Oximetry 2020-11-25 00:27:00 98 % [facility] (LUF/DAVID/SA) BP Systolic 2020-11-25 00:27:00 109 mm[Hg] [facility] (LUF/DAVID/SA) BP Diastolic 2020-11-25 00:27:00 62 mm[Hg] [facility] (LUF/DAVID/SA) Heart Rate 2020-11-21 09:30:00 75 /min [facility] (LUF/DAVID/SA) Respiratory Rate 2020-11-21 09:30:00 14 /min [facility] (LUF/DAVID/SA) BP Systolic 2020-11-21 09:30:00 120 mm[Hg] [facility] (LUF/DAVID/SA) BP Diastolic 2020-11-21 09:30:00 76 mm[Hg] [facility] (LUF/DAVID/SA) Body Temperature 2020-11-21 07:15:00 98.1 [degF] [facility] (LUF/DAVID/SA) Pulse Rate 2020-11-21 07:15:00 103 /min [facility] (LUF/DAVID/SA) O2% BldC Oximetry 2020-11-21 07:15:00 100 % [facility] (LUF/DAVID/SA) Height 2020-11-21 07:15:00 64 [in_i] [facility] (LUF/DAVID/SA) Weight 2020-11-21 07:15:00 103.1 kg [facility] (LUF/DAVID/SA) BMI (Body Mass 2020-11-21 07:15:00 39.2 kg/m2 [facility] (LUF/DAVID/SA) Heart Rate 2020-11-14 13:30:00 69 /min [facility] (LUF/DAVID/SA) Pulse Rate 2020-11-14 13:30:00 70 /min [facility] (LUF/DAVID/SA) Respiratory Rate 2020-11-14 13:30:00 10 /min [facility] (LUF/DAVID/SA) O2% BldC Oximetry 2020-11-14 13:30:00 96 % [facility] (LUF/DAVID/SA) BP Systolic 2020-11-14 13:30:00 103 mm[Hg] [facility] (LUF/DAVID/SA) BP Diastolic 2020-11-14 13:30:00 77 mm[Hg] [facility] (LUF/DAVID/SA) Body Temperature 2020-11-14 09:47:00 97.4 [degF] [facility] (LUF/DAVID/SA) Weight 2020-11-14 09:47:00 103 kg [facility] (F/DAVID/SA) Body Temperature 2020-11-08 08:32:00 98.1 [degF] [facility] (LUF/DAVID/SA) Pulse Rate 2020-11-08 08:32:00 82 /min [facility] (LUF/DAVID/SA) Respiratory Rate 2020-11-08 08:32:00 20 /min [facility] (LUF/DAVID/SA) O2% BldC Oximetry 2020-11-08 08:32:00 100 % [facility] (LUF/DAVID/SA) BP Systolic 2020-11-08 08:32:00 129 mm[Hg] [facility] (LUF/DAVID/SA) BP Diastolic 2020-11-08 08:32:00 72 mm[Hg] [facility] (LUF/DAVID/SA) Height 2020-11-08 08:32:00 64 [in_i] [facility] (LUF/DAVID/SA) Weight 2020-11-08 08:32:00 103.1 kg [facility] (F/DAVID/SA) BMI (Body Mass 2020-11-08 08:32:00 39.2 kg/m2 [facility]) [facility] (LUF/DAVID/SA) Body Temperature 2020-11-01 00:58:00 98.7 [degF] [facility] (F/DAVID/SA) Pulse Rate 2020-11-01 00:58:00 104 /min [facility] (F/DAVID/SA) Respiratory Rate 2020-11-01 00:58:00 20 /min [facility] (F/DAVID/SA) O2% BldC Oximetry 2020-11-01 00:58:00 99 % [facility] (F/DAVID/SA) BP Systolic 2020-11-01 00:58:00 133 mm[Hg] [facility] (LUF/DAVID/SA) BP Diastolic 2020-11-01 00:58:00 101 mm[Hg] [facility] (LUF/DAVID/SA) Height 2020-11-01 00:53:00 65 [in_i] [facility] (F/DAVID/SA) Weight 2020-11-01 00:53:00 103 kg [facility] (F/DAVID/SA) BMI (Body Mass 2020-11-01 00:53:00 37.8 kg/m2 [facility]DAVID/SA) Body Temperature 2020-10-04 23:51:00 98 [degF] [facility] (LUF/DAVID/SA) Pulse Rate 2020-10-04 23:51:00 96 /min [facility] (LUF/DAVID/SA) Respiratory Rate 2020-10-04 23:51:00 20 /min [facility] (F/DAVID/SA) O2% BldC Oximetry 2020-10-04 23:51:00 98 % [facility] (F/DAVID/SA) BP Systolic 2020-10-04 23:51:00 125 mm[Hg] [facility] (F/DAVID/SA) BP Diastolic 2020-10-04 23:51:00 73 mm[Hg] [facility] (F/DAVID/SA) Height 2020-10-04 23:47:00 65 [in_i] [facility] (F/DAVID/SA) Weight 2020-10-04 23:47:00 102.6 kg [facility] (F/DAVID/SA) BMI (Body Mass 2020-10-04 23:47:00 37.6 kg/m2 [facility] (LUF/DAVID/SA) Body Temperature 2020-09-18 01:44:00 98.3 [degF] [facility] (LUF/DAVID/SA) Pulse Rate 2020-09-18 01:44:00 116 /min [facility] (F/DAVID/SA) Respiratory Rate 2020-09-18 01:44:00 20 /min [facility] (F/DAVID/SA) O2% BldC Oximetry 2020-09-18 01:44:00 99 % [facility] (F/DAVID/SA) BP Systolic 2020-09-18 01:44:00 127 mm[Hg] [facility] (LUF/DAVID/SA) BP Diastolic 2020-09-18 01:44:00 83 mm[Hg] [facility] (F/DAVID/SA) Height 2020-09-18 01:40:00 64 [in_i] [facility] (LUF/DAVID/SA) Weight 2020-09-18 01:40:00 102.8 kg [facility] (LUF/DAVID/SA) BMI (Body Mass 2020-09-18 01:40:00 39.1 kg/m2 [facility]) [facility] (LUF/DAVID/SA) Pulse Rate 2020-09-12 02:16:00 88 /min [facility] (LUF/DAVID/SA) O2% BldC Oximetry 2020-09-12 02:16:00 98 % [facility] (LUF/DAVID/SA) BP Systolic 2020-09-12 02:16:00 113 mm[Hg] [facility] (LUF/DAVID/SA) BP Diastolic 2020-09-12 02:16:00 64 mm[Hg] [facility] (LUF/DAVID/SA) Body Temperature 2020-09-12 00:56:00 97.9 [degF] [facility] (F/DAVID/SA) Respiratory Rate 2020-09-12 00:56:00 18 /min [facility] (F/DAVID/SA) Height 2020-09-12 00:50:00 65 [in_i] [facility] (F/DAVID/SA) Weight 2020-09-12 00:50:00 104.5 kg [facility] (LUF/DAVID/SA) BMI (Body Mass 2020-09-12 00:50:00 38.3 kg/m2 [facility]) [facility] (LUF/DAVID/SA) Pulse Rate 2020-08-22 03:16:00 100 /min [facility] (F/DAVID/SA) O2% BldC Oximetry 2020-08-22 03:16:00 95 % [facility] (F/DAVID/SA) BP Systolic 2020-08-22 03:16:00 129 mm[Hg] [facility] (LUF/DAVID/SA) BP Diastolic 2020-08-22 03:16:00 88 mm[Hg] [facility] (LUF/DAVID/SA) Body Temperature 2020-08-22 01:35:00 98.4 [degF] [facility] (LUF/DAVID/SA) Respiratory Rate 2020-08-22 01:35:00 20 /min [facility] (LUF/DAVID/SA) Height 2020-08-22 01:35:00 64 [in_i] [facility] (LUF/DAVID/SA) Weight 2020-08-22 01:35:00 102 kg [facility] (LUF/DAVID/SA) BMI (Body Mass 2020-08-22 01:35:00 38.8 kg/m2 [facility]) [facility] (LUF/DAVID/SA) Pulse Rate 2020-08-06 03:31:00 83 /min [facility] (LUF/DAVID/SA) O2% BldC Oximetry 2020-08-06 03:31:00 96 % [facility] (LUF/DAVID/SA) BP Systolic 2020-08-06 03:31:00 127 mm[Hg] [facility] (LUF/DAVID/SA) BP Diastolic 2020-08-06 03:31:00 82 mm[Hg] [facility] (LUF/DAVID/SA) Body Temperature 2020-08-06 01:45:00 98 [degF] [facility] (LUF/DAVID/SA) Respiratory Rate 2020-08-06 01:45:00 20 /min [facility] (LUF/DAVID/SA) Height 2020-08-06 01:39:00 66 [in_i] [facility] (LUF/DAVID/SA) Weight 2020-08-06 01:39:00 104.2 kg [facility] (LUF/DAVID/SA) BMI (Body Mass 2020-08-06 01:39:00 37.3 kg/m2 [facility]) [facility] (LUF/DAVID/SA) Pulse Rate 2020-07-19 11:16:00 67 /min [facility] (LUF/DAVID/SA) O2% BldC Oximetry 2020-07-19 11:16:00 94 % [facility] (LUF/DAVID/SA) BP Systolic 2020-07-19 11:16:00 101 mm[Hg] [facility] (LUF/DAVID/SA) BP Diastolic 2020-07-19 11:16:00 63 mm[Hg] [facility] (LUF/DAVID/SA) Body Temperature 2020-07-19 07:50:00 98 [degF] [facility] (LUF/DAVID/SA) Respiratory Rate 2020-07-19 07:50:00 18 /min [facility] (LUF/DAVID/SA) Weight 2020-07-19 07:50:00 100 kg [facility] (LUF/DAVID/SA) Heart Rate 2020-07-05 04:46:00 80 /min [facility] (LUF/DAVID/SA) Respiratory Rate 2020-07-05 04:46:00 15 /min [facility] (LUF/DAVID/SA) BP Systolic 2020-07-05 04:46:00 134 mm[Hg] [facility] (LUF/DAVID/SA) BP Diastolic 2020-07-05 04:46:00 60 mm[Hg] [facility] (LUF/DAVID/SA) Body Temperature 2020-07-05 02:57:00 98 [degF] [facility] (LUF/DAVID/SA) Pulse Rate 2020-07-05 02:57:00 82 /min [facility] (F/DAVID/SA) O2% BldC Oximetry 2020-07-05 02:57:00 99 % [facility] (F/DAVID/SA) Height 2020-07-05 02:50:00 65 [in_i] [facility] (LUF/DAVID/SA) Weight 2020-07-05 02:50:00 102.1 kg [facility] (F/DAVID/SA) BMI (Body Mass 2020-07-05 02:50:00 37.5 kg/m2 [facility] (LUF/DAVID/SA) Body Temperature 2020-06-07 13:38:00 98.5 [degF] [facility] (LUF/DAVID/SA) Pulse Rate 2020-06-07 13:38:00 95 /min [facility] (LUF/DAVID/SA) Respiratory Rate 2020-06-07 13:38:00 20 /min [facility] (LUF/DAVID/SA) O2% BldC Oximetry 2020-06-07 13:38:00 97 % [facility] (LUF/DAVID/SA) BP Systolic 2020-06-07 13:38:00 129 mm[Hg] [facility] (LUF/DAVID/SA) BP Diastolic 2020-06-07 13:38:00 73 mm[Hg] [facility] (LUF/DAVID/SA) Height 2020-06-07 13:38:00 64 [in_i] [facility] (LUF/DAVID/SA) Weight 2020-06-07 13:38:00 99.79 kg [facility] (LUF/DAVID/SA) BMI (Body Mass 2020-06-07 13:38:00 38 kg/m2 [facility] St LuHandup Index) [facility] (LUF/DAVID/SA) Body Temperature 2020-05-31 09:45:00 99.6 [degF] [facility] (LUF/DAVID/SA) Pulse Rate 2020-05-31 09:45:00 86 /min [facility] (LUF/DAVID/SA) Respiratory Rate 2020-05-31 09:45:00 18 /min [facility] (LUF/DAVID/SA) O2% BldC Oximetry 2020-05-31 09:45:00 98 % [facility] (LUF/DAVID/SA) BP Systolic 2020-05-31 09:45:00 118 mm[Hg] [facility] (LUF/DAVID/SA) BP Diastolic 2020-05-31 09:45:00 78 mm[Hg] [facility] (LUF/DAVID/SA) Height 2020-05-31 09:45:00 64 [in_i] [facility] (LUF/DAVID/SA) Weight 2020-05-31 09:45:00 99.79 kg [facility] (LUF/DAVID/SA) BMI (Body Mass 2020-05-31 09:45:00 38 kg/m2 [facility] Index) [facility] (LUF/DAVID/SA) Heart Rate 2020-04-25 20:01:00 69 /min [facility] (LUF/DAVID/SA) Pulse Rate 2020-04-25 20:01:00 71 /min [facility] (LUF/DAVID/SA) Respiratory Rate 2020-04-25 20:01:00 18 /min [facility] (LUF/DAVID/SA) O2% BldC Oximetry 2020-04-25 20:01:00 100 % [facility] (LUF/DAVID/SA) BP Systolic 2020-04-25 20:01:00 126 mm[Hg] [facility] (LUF/DAVID/SA) BP Diastolic 2020-04-25 20:01:00 86 mm[Hg] [facility] (LUF/DAVID/SA) Body Temperature 2020-04-25 16:50:00 98.4 [degF] [facility] (F/DAVID/SA) Height 2020-04-25 16:50:00 64 [in_i] [facility] (F/DAVID/SA) Weight 2020-04-25 16:50:00 220 [lb_av] [facility] (LUF/DAVID/SA) BMI (Body Mass 2020-04-25 16:50:00 38 kg/m2 [facility] (LUF/DAVID/SA) Heart Rate 2020-03-20 18:18:00 112 /min [facility] (LUF/DAVID/SA) Pulse Rate 2020-03-20 18:16:00 93 /min [facility] (F/DAVID/SA) O2% BldC Oximetry 2020-03-20 18:16:00 92 % [facility] (LUF/DAVID/SA) BP Systolic 2020-03-20 18:16:00 127 mm[Hg] [facility] (LUF/DAVID/SA) BP Diastolic 2020-03-20 18:16:00 85 mm[Hg] [facility] (LUF/DAVID/SA) Body Temperature 2020-03-20 17:17:00 99.2 [degF] [facility] (F/DAVID/SA) Respiratory Rate 2020-03-20 17:17:00 19 /min [facility] (LUF/DAVID/SA) Height 2020-03-20 17:17:00 64 [in_i] [facility] (LUF/DAVID/SA) Weight 2020-03-20 17:17:00 106.9 kg [facility] (LUF/DAVID/SA) BMI (Body Mass 2020-03-20 17:17:00 40.7 kg/m2 [facility] (LUF/DAVID/SA) Respiratory Rate 2020-03-17 10:33:00 16 /min [facility] (LUF/DAVID/SA) Body Temperature 2020-03-17 07:54:00 97.9 [degF] [facility] (LUF/DAVID/SA) Pulse Rate 2020-03-17 07:54:00 83 /min [facility] (LUF/DAVID/SA) O2% BldC Oximetry 2020-03-17 07:54:00 96 % [facility] (LUF/DAVID/SA) BP Systolic 2020-03-17 07:54:00 107 mm[Hg] [facility] (LUF/DAVID/SA) BP Diastolic 2020-03-17 07:54:00 75 mm[Hg] [facility] (LUF/DAVID/SA) Weight 2020-03-17 00:09:00 105.6 kg [facility] (LUF/DAVID/SA) Heart Rate 2020-03-13 15:46:00 81 /min [facility] (LUF/DAVID/SA) Height 2020-03-13 15:31:00 64 [in_i] [facility] (LUF/DAVID/SA) Body Temperature 2020-03-02 15:20:00 98.6 [degF] [facility] (LUF/DAVID/SA) Pulse Rate 2020-03-02 15:20:00 86 /min [facility] (LUF/DAVID/SA) Respiratory Rate 2020-03-02 15:20:00 18 /min [facility] (LUF/DAVID/SA) O2% BldC Oximetry 2020-03-02 15:20:00 99 % [facility] (LUF/DAVID/SA) BP Systolic 2020-03-02 15:20:00 131 mm[Hg] [facility] (LUF/DAVID/SA) BP Diastolic 2020-03-02 15:20:00 85 mm[Hg] [facility] (LUF/DAVID/SA) Height 2020-03-01 10:54:00 64 [in_i] [facility] (LUF/DAVID/SA) Weight 2020-03-01 10:54:00 102 kg [facility] (LUF/DAVID/SA) BMI (Body Mass 2020-03-01 10:54:00 38.8 kg/m2 [facility] (LUF/DAVID/SA) Respiratory Rate 2020-02-27 07:47:00 16 /min [facility] (LUF/DAVID/SA) Body Temperature 2020-02-27 07:32:00 98.2 [degF] [facility] (LUF/DAVID/SA) Pulse Rate 2020-02-27 07:32:00 94 /min [facility] (LUF/DAVID/SA) O2% BldC Oximetry 2020-02-27 07:32:00 95 % [facility] (LUF/DAVID/SA) BP Systolic 2020-02-27 07:32:00 111 mm[Hg] [facility] (LUF/DAVID/SA) BP Diastolic 2020-02-27 07:32:00 56 mm[Hg] [facility] (LUF/DAVID/SA) Weight 2020-02-26 02:09:00 99.6 kg [facility] (LUF/DAVID/SA) Height 2020-02-25 10:03:00 64 [in_i] [facility] (LUF/DAVID/SA) Body Temperature 2020-02-25 00:52:00 97.9 [degF] [facility] (LUF/DAVID/SA) Pulse Rate 2020-02-25 00:52:00 118 /min [facility] (LUF/DAVID/SA) Respiratory Rate 2020-02-25 00:52:00 18 /min [facility] (LUF/DAVID/SA) O2% BldC Oximetry 2020-02-25 00:52:00 97 % [facility] (LUF/DAVID/SA) BP Systolic 2020-02-25 00:52:00 133 mm[Hg] [facility] (LUF/DAVID/SA) BP Diastolic 2020-02-25 00:52:00 67 mm[Hg] [facility] (LUF/DAVID/SA) Height 2020-02-25 00:47:00 64 [in_i] [facility] (LUF/DAVID/SA) Weight 2020-02-25 00:47:00 103.4 kg [facility] (LUF/DAVID/SA) BMI (Body Mass 2020-02-25 00:47:00 39.3 kg/m2 [facility] Index) [facility] (LUF/DAVID/SA) Body Temperature 2020-01-25 11:32:00 98.4 [degF] [facility] (LUF/DAVID/SA) Pulse Rate 2020-01-25 11:32:00 81 /min [facility] (LUF/DAVID/SA) Respiratory Rate 2020-01-25 11:32:00 14 /min [facility] (LUF/DAVID/SA) O2% BldC Oximetry 2020-01-25 11:32:00 98 % [facility] (LUF/DAVID/SA) BP Systolic 2020-01-25 11:32:00 139 mm[Hg] [facility] (LUF/DAVID/SA) BP Diastolic 2020-01-25 11:32:00 89 mm[Hg] [facility] (LUF/DAVID/SA) Height 2020-01-25 11:32:00 64 [in_i] [facility] (LUF/DAVID/SA) Weight 2020-01-25 11:32:00 100.5 kg [facility] (LUF/DAVID/SA) BMI (Body Mass 2020-01-25 11:32:00 38.2 kg/m2 [facility] St Handup Index) [facility] (LUF/DAVID/SA) Heart Rate 2019-11-24 04:16:00 84 /min [facility] (LUF/DAVID/SA) Pulse Rate 2019-11-24 04:16:00 90 /min [facility] (LUF/DAVID/SA) Respiratory Rate 2019-11-24 04:16:00 26 /min [facility] (LUF/DAVID/SA) O2% BldC Oximetry 2019-11-24 04:16:00 98 % [facility] (LUF/DAVID/SA) BP Systolic 2019-11-24 04:16:00 106 mm[Hg] [facility] (LUF/DAVID/SA) BP Diastolic 2019-11-24 04:16:00 69 mm[Hg] [facility] (LUF/DAVID/SA) Body Temperature 2019-11-24 00:54:00 98.4 [degF] [facility] (LUF/DAVID/SA) Height 2019-11-24 00:49:00 65 [in_i] [facility] (LUF/DAVID/SA) Weight 2019-11-24 00:49:00 103 kg [facility] (LUF/DAVID/SA) BMI (Body Mass 2019-11-24 00:49:00 37.8 kg/m2 [facility] (LUF/DAVID/SA) Heart Rate 2019-10-07 22:54:00 83 /min [facility] (LUF/DAVID/SA) Respiratory Rate 2019-10-07 22:54:00 14 /min [facility] (LUF/DAVID/SA) Pulse Rate 2019-10-07 22:31:00 89 /min [facility] (LUF/DAVID/SA) O2% BldC Oximetry 2019-10-07 22:31:00 97 % [facility] (LUF/DAVID/SA) BP Systolic 2019-10-07 21:16:00 127 mm[Hg] [facility] (LUF/DAVID/SA) BP Diastolic 2019-10-07 21:16:00 85 mm[Hg] [facility] (LUF/DAVID/SA) Height 2019-10-07 20:41:00 64 [in_i] [facility] (LUF/DAVID/SA) Weight 2019-10-07 20:41:00 100.2 kg [facility] (LUF/DAVID/SA) BMI (Body Mass 2019-10-07 20:41:00 38.1 kg/m2 [facility] Index) [facility] (LUF/DAVID/SA) Pulse Rate 2019-09-20 04:16:00 96 /min [facility] (LUF/DAVID/SA) Respiratory Rate 2019-09-20 04:16:00 9 /min [facility] (LUF/DAVID/SA) O2% BldC Oximetry 2019-09-20 04:16:00 96 % [facility] (LUF/DAVID/SA) BP Systolic 2019-09-20 04:16:00 97 mm[Hg] [facility] (LUF/DAVID/SA) BP Diastolic 2019-09-20 04:16:00 76 mm[Hg] [facility] (LUF/DAVID/SA) Body Temperature 2019-09-20 00:44:00 98 [degF] [facility] (F/DAVID/SA) Height 2019-09-20 00:39:00 65 [in_i] [facility] (LUF/DAVID/SA) Weight 2019-09-20 00:39:00 101.9 kg [facility] (LUF/DAVID/SA) BMI (Body Mass 2019-09-20 00:39:00 37.4 kg/m2 [facility] Index) [facility] (LUF/DAVID/SA) Pulse Rate 2019-08-17 04:31:00 81 /min [facility] (LUF/DAVID/SA) Respiratory Rate 2019-08-17 04:31:00 13 /min [facility] (F/DAVID/SA) O2% BldC Oximetry 2019-08-17 04:31:00 97 % [facility] (LUF/DAVID/SA) BP Systolic 2019-08-17 04:31:00 136 mm[Hg] [facility] (LUF/DAVID/SA) BP Diastolic 2019-08-17 04:31:00 75 mm[Hg] [facility] (LUF/DAVID/SA) Body Temperature 2019-08-17 02:23:00 97.6 [degF] [facility] (F/DAVID/SA) Height 2019-08-17 02:19:00 64 [in_i] [facility] (LUF/DAVID/SA) Weight 2019-08-17 02:19:00 100.6 kg [facility] (LUF/DAVID/SA) BMI (Body Mass 2019-08-17 02:19:00 38.3 kg/m2 [facility]) [facility] (LUF/DAVID/SA) Pulse Rate 2018-12-07 02:33:00 79 /min [facility] (LUF/DAVID/SA) Respiratory Rate 2018-12-07 02:33:00 15 /min [facility] (LUF/DAVID/SA) O2% BldC Oximetry 2018-12-07 02:33:00 96 % [facility] (LUF/DAVID/SA) BP Systolic 2018-12-07 02:33:00 120 mm[Hg] [facility] (LUF/DAVID/SA) BP Diastolic 2018-12-07 02:33:00 76 mm[Hg] [facility] (LUF/DAVID/SA) Body Temperature 2018-12-07 01:10:00 98.2 F [facility] (LUF/DAVID/SA) Height 2018-12-07 01:10:00 64 in [facility] (LUF/DAVID/SA) Weight Measured 2018-12-07 01:10:00 218.25 lbs [facility] (LUF/DAVID/SA) BMI (Body Mass 2018-12-07 01:10:00 37.7 kg/m2 [facility]) [facility] (LUF/DAVID/SA) Pulse Rate 2018-09-30 19:40:00 70 /min [facility] (LUF/DAVID/SA) Respiratory Rate 2018-09-30 19:40:00 21 /min [facility] (LUF/DAVID/SA) O2% BldC Oximetry 2018-09-30 19:40:00 100 % [facility] (LUF/DAVID/SA) BP Systolic 2018-09-30 19:40:00 124 mm[Hg] [facility] (LUF/DAVID/SA) BP Diastolic 2018-09-30 19:40:00 88 mm[Hg] [facility] (LUF/DAVID/SA) Body Temperature 2018-09-30 19:23:00 99.3 F [facility] (F/DAVID/SA) Height 2018-09-30 19:23:00 66 in [facility] (LUF/DAVID/SA) Weight Measured 2018-09-30 19:23:00 212.52 lbs [facility] (LUF/DAVID/SA) BMI (Body Mass 2018-09-30 19:23:00 34.5 kg/m2 [facility]) [facility] (LUF/DAVID/SA) Body Temperature 2018-09-01 13:59:00 98 F [facility] (F/DAVID/SA) Pulse Rate 2018-09-01 12:15:00 74 /min [facility] (LUF/DAVID/SA) Respiratory Rate 2018-09-01 12:15:00 16 /min [facility] (F/DAVID/SA) O2% BldC Oximetry 2018-09-01 12:15:00 98 % [facility] (LUF/DAVID/SA) BP Systolic 2018-09-01 12:15:00 131 mm[Hg] [facility] (LUF/DAVID/SA) BP Diastolic 2018-09-01 12:15:00 78 mm[Hg] [facility] (LUF/DAVID/SA) Height 2018-09-01 09:16:00 64 in [facility] (F/DAVID/SA) Weight Measured 2018-09-01 09:16:00 214.24 lbs [facility] (LUF/DAVID/SA) BMI (Body Mass 2018-09-01 09:16:00 37 kg/m2 [facility]) [facility] (LUF/DAVID/SA) Body Temperature 2018-05-13 10:58:00 99 F [facility] (F/DAVID/SA) Pulse Rate 2018-05-13 10:58:00 97 /min [facility] (F/DAVID/SA) Respiratory Rate 2018-05-13 10:58:00 18 /min [facility] (F/DAVID/SA) O2% BldC Oximetry 2018-05-13 10:58:00 98 % [facility] (LUF/DAVID/SA) BP Systolic 2018-05-13 10:58:00 131 mm[Hg] [facility] (LUF/DAVID/SA) BP Diastolic 2018-05-13 10:58:00 88 mm[Hg] [facility] (LUF/DAVID/SA) Height 2018-05-13 10:58:00 64 in [facility] (LUF/DAVID/SA) Weight Measured 2018-05-13 10:58:00 207.23 lbs [facility] (LUF/DAVID/SA) BMI (Body Mass 2018-05-13 10:58:00 35.8 [facility] (LUF/DAVID/SA) Body Temperature 2017-12-24 08:04:00 98.7 F [facility] (LUF/DAVID/SA) Respiratory Rate 2017-12-24 08:04:00 18 /min [facility] (LUF/DAVID/SA) O2% BldC Oximetry 2017-12-24 08:04:00 98 % [facility] (LUF/DAVID/SA) BP Systolic 2017-12-24 08:04:00 126 mm[Hg] [facility] (LUF/DAVID/SA) BP Diastolic 2017-12-24 08:04:00 86 mm[Hg] [facility] (LUF/DAVID/SA) Weight Measured 2017-12-24 08:04:00 207.23 lbs [facility] (F/DAVID/SA) Body Temperature 2017-06-20 23:28:00 97.4 F [facility] (LUF/DAVID/SA) Respiratory Rate 2017-06-20 23:28:00 20 /min [facility] (LUF/DAVID/SA) O2% BldC Oximetry 2017-06-20 23:28:00 99 % [facility] (LUF/DAVID/SA) BP Systolic 2017-06-20 23:28:00 107 mm[Hg] [facility] (LUF/DAVID/SA) BP Diastolic 2017-06-20 23:28:00 76 mm[Hg] [facility] (LUF/DAVID/SA) Height 2017-06-20 23:28:00 64 in [facility] Antonia correa [facility] (LUF/DAVID/SA) Weight Measured 2017-06-20 23:28:00 217.15 lbs [facility] S [facility] (LUF/DAVID/SA) BMI (Body Mass 2017-06-20 23:28:00 37.5 [facility] Index) [facility] (LUF/DAVID/SA) Procedures Procedure Date / Time Performing Clinician Source Performed POCT MOLECULAR FLU 2021-11-29 22:46:00 [facility] INS INFUS DEV LT BASILIC 2020-03-15 00:00:00 [facility] VN PERQ [facility] (LUF/DAVID/SA) ULTRASONOGRAPHY LT UP EXT 2020-03-15 00:00:[address] [facility] VNS GUID [facility] (LUF/DAVID/SA) ROBOTIC LAP LYSIS OF 2020-03-02 12:56:00 [facility] ADHESIONS [facility] (LUF/DAVID/SA) LAPAROSCOPY ENTEROLYSIS 2020-03-02 00:00:00 [facility] SEPARATE PROCEDU [facility] (LUF/DAVID/SA) COLONOSCOPY FLX DX W/COLLJ 2020-02-26 00:00:[address] [facility] SPEC WHEN PFR [facility] (LUF/DAVID/SA) ROBOTIC RIGHT OOPHORECTOMY 2019-03-21 17:09:[address] [facility] LUF (Right) [facility] (LUF/DAVID/SA) CYSTO RGP STENT PLACEMENT 2015-04-20 14:01:00 CH I [facility] (LUF/DAVID/SA) CYSTO RGP STENT PLACEMENT 2015-04-20 14:01:[facility] (LUF/DAVID/SA) Hysterectomy [facility] (LUF/DAVID/SA) Total thyroidectomy [facility] (LUF/DAVID/SA) section [facility] (LUF/DAVID/SA) ABDOMINAL ADHESIONS [facility] REMOVED [facility] (LUF/DAVID/SA) Extracorporeal shockwave [facility] lithotripsy [facility] (LUF/DAVID/SA) MULTIPLE CYSTECTOMYS DONE [facility] (LUF/DAVID/SA) MULTIPLE CYSTECTOMYS DONE [facility] (LUF/DAVID/SA) ABDOMINAL ADHESIONS [facility] (LUF/DAVID/SA) Appendectomy [facility] (LUF/DAVID/SA) Plan of Care Planned Activity Planned Date Details Comments Source Future Scheduled 2022-01-03 COVID-19 Vaccination [facility] Test 06:07:35 (#1) [code = COVID-19 [facility] (#1[facility] Center Future Scheduled 2022-01-03 COVID-19 Vaccination [facility] Test 06:07:35 (#1) [code = COVID-19 [facility] (#1)] Center Future Scheduled 2021-12-22 COVID-19 Vaccination [facility] Test 05:57:49 (#1) [code = COVID-19 [facility] Vacc[facility] (#1)] Center Encounters Start End Encounter Admission Attending Care Care Encounter Source Date/Time Date/Time Type Type Clinicians Facility Department ID 2021-07-27 Outpatient Nba, STLMLC STLMLC Common 08:27:02 Josué 0127 [facility] 2021-07-26 Outpatient Nba, STLMLC STLMLC Common 14:20:31 Josué 1203 [facility] 2021-07-26 Outpatient Nba, STLMLC STLMLC Common 14:05:52 Josué 1027 [facility] 2021-07-26 Outpatient Nba, STLMLC STLMLC Common 12:01:28 Josué 1103 [facility] 2021-07-26 Outpatient Nba, STLMLC STLMLC Common 11:56:42 Josué 1019 [facility] 2021-07-26 Outpatient Nba, STLMLC STLMLC Common 11:49:38 Josué 0928 [facility] 2021-07-26 Outpatient Nba, STLMLC STLMLC Common 11:48:02 Josué 0922 [facility] 2021-07-26 Outpatient Nba, STLMLC STLMLC Common 11:47:47 Josué 0921 [facility] 2021-07-26 Outpatient JEANA Arango [facility] Common 11:42:15 Josué 0901 [facility] 2021-07-26 Outpatient JEANA Arango [facility] Common 11:32:09 Josué 0720 [facility] 2021-11-29 2021-11-29 [facility] [id number] Univers 17:40:00 18:00:00 Care [facility] [id number] it y of [place] [id number] Jacques as SUE?BLEA [id number] [address] MEDICAL OFFICE BUILDING 2021-11-29 2021-11-29 Outpatient R [facility] [id number] Univers 17:40:00 17:40:00 AMEENA ity of [facility] 2021-10-26 2021-10-26 Office GEOVANI Blas, [id number] Univers 09:45:00 10:47:06 Visit Praveen [id number] ity of [id number] Jeffrey .[id number] MD Diaz [facility] 2021-10-26 2021-10-26 Office Shiva [id number] Univers 09:45:00 10:47:06 Visit Praveen [id number] ity of [id number] Jeffrey [id number] MD Diaz [facility] 2021-10-26 2021-10-26 Travel [id number] Univers 00:00:00 00:00:00 [id number] ity of [id number] .[id number] 084.8 MD Diaz [facility] 2021-10-26 2021-10-26 Travel [id number] Univers 00:00:00 00:00:00 [id number] ity of [id number] [place] .[id number] 084.8 .8 [facility] 2021-10-15 2021-10-15 JAYLANMARK 1 SHAMAA, [facility] [id number] [facility] 22:25:00 22:45:00 CONSCIOUS EKTA [facility], Memor ia [address] V/SA) [place] [address] 2021-10-15 2021-10-15 Inpatient [facility] [id number] [facility] 00:[facility] 00:00:00 [place] [id number] [facility], [phone] Memor ia [id number], V/[place]) [place] [address] 2021-10-15 2021-10-15 Inpatient [facility] [id number] 00:00:00 00:00:00 [place] [id number] [facility], [phone] Memor ia [address] [id number] [address] ([address], V/SA) [place] [address] 2021-08-07 2021-08-07 Emergency EM Clements, HCAPM AMPARO [id number] [facility] 09:36:00 12:55:00 [facility] 2021-08-07 2021-08-07 Emergency EM Tyree, HCAPM HCAPM [id number] [facility] 09:36:00 12:55:00 Olga 19 [facility] 2021-05-30 2021-05-30 ambulatory STLMLC STLMLC [id number] Common 00:00:00 00:00:00 [facility] 2021-05-29 2021-05-29 ambulatory STLMLC STLMLC [id number] Common 00:00:00 00:00:00 [facility] 2021-04-26 2021-04-26 [facility] [id number] Common 00:00:00 00:00:00 Spirit - [facility] 2021-04-23 2021-04-[address] JANIAAntonia EMD [id number] [facility] 00:46:00 02:08:00 Chin Dhaliwal ABDOMINAL Memori a PAIN l (LUF/LI V/SA) 2021-04-23 2021-04-23 Inpatient [facility] [id number] [facility] 00:00:00 00:00:00 [place] [id number] [facility], [id number] Memor [address] [id number] l [place] (LUF/LI A[address], V/SA) YOLANDA ROSA [id number] 2021-04-23 2021-04-23 Inpatient [facility] [id number] [facility] St 00:00:00 00:00:00 [place] [id number] [facility], [phone] Memor ia [address] [id number] l [place] (LUF/LI A[address], V/SA) YOLANDA ROSA [id number] 2021-03-24 2021-03-24 ANXIETY 1 [place], [facility] [id number] [facility] 10:25:00 12:27:00 DISORDER REHAN [facility] UNSPECIFIE [place], Memor ia D [address] [place] (LUF/LI A[address], V/SA) YOLANDA ROSA [id number] 2021-03-24 2021-03-24 Inpatient [facility] [id number] [facility] St 00:00:00 00:00:00 [place] [id number] [facility], [id number] Memor ia [address] [id number] l [place] (LUF/LI A[address], V/SA) YOLANDA ROSA [id number] 2021-03-24 2021-03-24 Inpatient [facility] [id number] [facility]00 00:00:00 [place] [id number] [facility], [id number] Memor ia [address] [id number] l [place] ([address]F/LI A[address], V/SA) [place] [address] 2021-03-23 2021-03-23 Orders Nofies, 1.2.840.1 [id number] [facility] 00:00:00 00:00:00 Only Viktoriya Charlton 46242.1.1 ity of 3.412.2.7 [place] .[id number] .8 [facility] 2021-03-23 2021-03-23 Orders Nofies, 1.2.840.1 [id number] Univers 00:00:00 00:00:00 Only Viktoriya Charlton 45573.1.1 ity of 3.412.2.7 [place] .3.253282 .8 [facility] 2021-03-10 2021-03-10 UTI SITE E LEONARD, [facility] [place] [id number] [facility] 10:29:00 13:50:00 NOT [place] [facility] a [address]LI [address], V/SA) [place] [address] 2021-03-10 2021-03-10 Inpatient [facility] 16e7 [id number] [facility] 00:00:00 [place] [id number]-[id number] [facility], [id number] Memor ia [address] [id number] l [address] (LUF/LI A[address], V/SA) [place] [address] 2021-03-10 2021-03-10 Inpatient [facility] 518c 3339-c [facility] 00:00:00 [place] [id number] [facility], [id number] Memor ia [address] [id number] l [address] (LUF/LI A[address], V/SA) [place] [address] 2021-02-23 2021-02-23 RIGHT E [facility] [id number] [facility] 08:15[facility]00 12:44[facility]00 [facility] [address] ([address]/LI [address], V/SA) [place] [address] 2021-02-23 2021-02-23 Inpatient [facility] [id number] d1de-6 [facility] 00:00:00 00:00:00 [place] [id number]-[id number] [facility], [id number] Memor ia [address] [id number] l [address] (LUF/LI AVE, V/SA) [place] [address] 2021-02-23 2021-02-23 Inpatient [facility] 8500 [id number] [facility] 00:00:00 00:00:00 [place] [id number]-[id number] [facility], [id number] Memor ia [address] [id number] l [address] (LUF/LI A[address], V/SA) [place] [address] 2021-01-10 2021-01-10 CALCULUS Jake DYKES, [facility] [id number] [facility] 00:21:00 03:06:00 [facility] [place], Memoria [address] ([address]F/LI A[address], V/SA) [place] [address] 2021-01-10 2021-01-10 Inpatient [facility] ff0d 2205-c [facility] 00:00:00 00:00:00 [place] [id number] [facility], [id number] Memor ia [address] [id number] l [address] ([address]F/LI A[address], V/SA) [place] [address] 2021-01-10 2021-01-10 Inpatient [facility] deee fe83-e [facility] 00:00:00 00:00:00 [place] [id number] [facility], [id number] Memor ia [address] [id number] l [address] ([address]F/LI A[address], V/SA) [place] [address] 2020-12-27 2020-12-27 Emergency [facility] Zarina [id number] [place] 00:00:00 00:00:[address] 2020-12-22 2020-12-22 Outpatient 3 LONI MURILLO TIC [id number] 09:00:00 09:00:00 SKYE Dhaliwal Memoria l (LUF/LI V/SA) 2020-12-13 2020-12-13 Emergency EM SHEY Perez [id number] [facility] 01:53:00 06:36:00 Tangela [address] [facility] 2020-12-12 2020-12-12 RIGHT Jake COTTON, [facility] [id number] [facility] 12:33:00 14:00:00 [facility] [place], Memoria PAIN [address] ([address]F/LI A[address], V/SA) [place] [address] 2020-12-12 2020-12-12 Inpatient [facility] e2c0 cb47-b [facility] 00:[facility]:00 00:00:00 [place] [id number]-[id number] [facility], [id number] Memor ia [address] [id number] l [address] (LUF/LI AVE, V/SA) [place] [address] 2020-12-12 2020-12-12 Inpatient [facility] 43ed f7fe-[address] 00:00:00 00:00:00 [place] [id number] [facility], [id number] Memor ia [address] [id number] l [address] ([address]F/LI A[address], V/SA) [place] [address] 2020-12-08 2020-12-08 UNSPECPRANAY SOTOMAYOR, [facility] [id number] 09:44:00 12:26:00 D [address]ATT [place] [facility] ABDOMINAL [place], Memori a PAIN [address] ([address]F/LI A[address], V/SA) [place] [address] 2020-12-08 2020-12-08 Inpatient [facility] 6a3f a794-a [facility] 00:00:00 00:00:00 [place] [id number] [facility], [id number] Memor ia [address] [id number] l [address] ([address]F/LI A[address], V/SA) [place] [address] 2020-11-25 2020-11-25 UNSPECIFIE [facility] [id number] 00:13:00 00:30:00 D [place] Isra ABDOMINAL [place], Memori a PAIN [address] ([address]F/LI A[address], V/SA) [place] [address] 2020-11-25 2020-11-25 Inpatient [facility] 3041 db6a-[address] 00:00:00 00:00:00 [place] [id number] [facility], [id number] Memor ia [address] [id number] l [address] ([address]F/LI A[address], V/SA) [place] [address] 2020-11-25 2020-11-25 Inpatient [facility] a3eb ed11-a [facility] 00:00:00 00:00:00 [place] [id number] [facility], [id number] Memor ia [address] [id number] l [address] (LUF/LI A[address], V/SA) [place] [address] 2020-11-21 2020-11-21 ENDOMETRIO 1 [facility] [id number] 07:14:00 09:53:00 SIS [facility] UNSPECIFIE [place], Memor ia D [address] ([address]F/LI A[address], V/SA) [place] [address] 2020-11-21 2020-11-21 Inpatient [facility] 90f0 [id number] 00:00:00 00:00:00 [place] [id number] [facility], 4bb-[id number] Memor ia [address] [id number] l [address] (LUF/LI A[address], V/SA) [place] [address] 2020-11-21 2020-11-21 Inpatient [facility] [id number] [id number] 00:00:00 00:00:00 [place] 30a-405e-8 [facility], [id number] Memor ia [address] [id number] l [address] ([address]F/LI A[address], V/SA) [place] [address] 2020-11-14 2020-11-[address] [facility] [id number] 09:27:00 14:37:00 UNS REHAN Dhaliwal WITHOUT Memoria BLEEDING l (LUF/LI V/SA) 2020-11-14 2020-11-14 Inpatient [facility] d4fe d3e2-[address] 00:00:00 00:00:00 [place] 3cf-[id number]-a [facility], [id number] Memor ia [address] [id number] l [address] ([address]F/LI A[address], V/SA) [place] [address] 2020-11-14 2020-11-14 Inpatient [facility] 324e 65b9-b [facility] 00:00:00 00:00:00 [place] [id number] [facility], [id number] Memor ia [address] [id number] [address] (LUF/LI AVE, V/SA) [place] [address] 2020-11-08 2020-11-08 OTHER E COTTON, [facility] [id number] 08:04:00 13:13:00 CHRONIC REHAN SWAN Lulucia PAIN [place], Memoria [address] ([address]F/LI A[address], V/SA) [place] [address] 2020-11-08 2020-11-08 Inpatient [facility] 8079 b52c-c [facility] 00:00:00 00:00:00 [place] [id number] [facility], [id number] Memor ia [address] [id number] l [address] (LUF/LI AVE, V/SA) [place] [address] 2020-11-08 2020-11-08 Inpatient [facility] 0f07 dc59-[address] 00:00:00 00:00:00 [place] 292-4184-b [facility], [id number] Memor ia [address] [id number] l [address] (LUF/LI AVE, V/SA) [place] [address] 2020-11-08 2020-11-08 Inpatient [facility] [id number] e14c-[address] 00:00:00 00:00:00 [place] [id number] [facility], [id number] Memor ia [address] [id number] l [address] (LUF/LI A[address], V/SA) [place] [address] 2020-11-01 2020-11-01 NAUSEA Jake MUÑOZ, [facility] [id number] 00:27:00 03:55:00 [facility], Memoria UNSPECIFIE [address] D [address] ([address]F/LI A[address], V/SA) [place] [address] 2020-11-01 2020-11-01 Inpatient [facility] [id number] 64c1-c [facility] 00:00:00 00:00:00 [place] [id number]-c [facility], [id number] Memor ia [address] [id number] l [address] ([address]F/LI A[address], V/SA) [place] [address] 2020-11-01 2020-11-01 Inpatient [facility] 79c0 b023-[address] 00:00:00 00:00:00 [place] 0q2-948b-y [facility], [id number] Memor ia [address] [id number] l [address] (LUF/LI A[address], V/SA) [place] [address] 2020-10-04 2020-10-05 OTHER E RODRICK, [facility] [id number] 23:32:00 01:00:00 CHRONIC JUAN [facility], Memoria [address] ([address]F/LI [address], V/SA) [place] [address] 2020-10-04 2020-10-04 Inpatient [facility] b016 f3f5-a [facility] 00:00:00 00:00:00 [place] [id number] [facility], [id number] Memor ia [address] [id number] l [address] ([address]F/LI A[address], V/SA) [place] [address] 2020-10-042020-10-04 Inpatient [facility] ea96 [id number] 00:00:00 00:00:00 [place] 25c-4997-b [facility], [id number] Memor ia [address] [id number] l [address] ([address]F/LI A[address], V/SA) [place] [address] 2020-09-18 2020-09-18 OTHER E [facility] [id number] 01:00:00 04:44:00 CHRONIC [place] [facility] [place], Memoria [address] ([address]F/LI A[address], V/SA) [place] [address] 2020-09-18 2020-09-18 Inpatient [facility] b80a 7ee5-[address] 00:00:00 00:00:00 [place] 1x7-686y-9 [facility], [id number] Memor ia [address] [id number] l [address] ([address]F/LI A[address], V/SA) [place] [address] 2020-09-18 2020-09-18 Inpatient [facility] 1a33 0198-a [facility] 00:00:00 00:00:00 [place] [id number] [facility], [id number] Memor ia [address] [id number] [address] ([address]F/LI A[address], V/SA) [place] [address] 2020-09-12 2020-09-12 ENDOMETRIO E KOSCIUK, [facility] [id number] [facility] 00:46:00 02:38:00 SIS JUAN [facility] UNSPECIFIE [place], Memor ia D [address] ([address]F/LI [address], V/SA) [place] [address] 2020-09-12 2020-09-12 Inpatient [facility] 726d 153b-a [facility] 00:00:00 00:00:00 [place] [id number]-[id number] [facility], [id number] Memor ia [address] [id number] l [address] ([address]/LI [address], V/SA) [place] [address] 2020-09-12 2020-09-12 Inpatient [facility] 9a2d b59c-c [facility] 00:00:00 00:00:00 [place] [id number] [facility], [id number] Memor ia [address] [id number] l [address] ([address]F/LI [address], V/SA) [place] [address] 2020-08-22 2020-08-22 OTHER E SANANAVDEEP, [facility] 96800 [id number] [facility] 01:13:00 03:24:00 CHRONIC [facility], Memoria [address] ([address]/LI A[address], V/SA) [place] [address] 2020-08-22 2020-08-22 Inpatient [facility] 7a1d d2a9-[address] 00:00:00 00:00:00 [place] [id number] [facility], [id number] Memor ia [address] [id number] l [address] ([address]F/LI A[address], V/SA) [place] [address] 2020-08-22 2020-08-22 Inpatient [facility] [id number] 2542-f [facility] 00:00:00 00:00:00 [place] 72a-[id number] [facility], [id number] [facility] [address] [id number] l [address] ([address]F/LI A[address], V/SA) [place] [address] 2020-08-06 2020-08-06 Inpatient Jake HOODLETA, [facility] [id number] 01:21:00 03:35:00 [facility] [address] ([address]F/LI [address], V/SA) [place] [address] 2020-08-06 2020-08-06 Inpatient [facility] 07b7 067c-a [facility] 00:00:00 00:00:00 [place] [id number] [facility], [id number] Memor ia [address] [id number] l [address] ([address]F/LI A[address], V/SA) [place] [address] 2020-07-19 2020-07-19 RIGHT Jake COTTON, [facility] 03479 05838 [facility] 07:50:00 11:20:00 LOWER REHAN [place] [facility] [place], Memoria PAIN [address] ([address]F/LI A[address], V/SA) [place] [address] 2020-07-19 2020-07-19 Inpatient [facility] 625d 6050-c [facility] 00:00:00 00:00:00 [place] 92c-[id number] [facility], [id number] Memor ia [address] [id number] l [address] ([address]F/LI A[address], V/SA) [place] [address] 2020-07-19 2020-07-19 Inpatient [facility] 0f28 [id number] [facility] 00:00:00 00:00:00 [place] bbb-[id number]-[id number] [facility], [id number] Memor ia [address] [id number] l [address] (LUF/LI A[address], V/SA) [place] [address] 2020-07-05 2020-07-05 OTHER E SANALETA, [facility] 24586 40279 [facility] 02:42:00 05:00:00 CHRONIC JUAN [facility], Memoria [address] ([address]F/LI [address], V/SA) [place] [address] 2020-07-05 2020-07-05 Inpatient [facility] 525e 4189-f [facility] 00:00:00 00:00:00 [place] bff-495f-b [facility], [id number] Memor ia [address] [id number] l [address] ([address]/LI [address], V/SA) [place] [address] 2020-07-05 2020-07-05 Inpatient [facility] c54b 2c2e-e [facility] 00:00:00 00:00:00 [place] [id number] [facility], [id number] Memor ia [address] [id number] [address] ([address]/LI [address], V/SA) [place] [address] 2020-06-10 2020-06-10 Outpatient STLMLC STLMLC [id number] Common 00:00:00 00:00:00 [facility] 2020-06-07 2020-06-07 Inpatient 1 YURY, [facility] [id number] 12:56:00 19:04:00 [facility] [address] ([address]F/LI A[address], V/SA) [place] [address] 2020-06-07 2020-06-07 Inpatient [facility] 5603 [id number] [facility] 00:00:00 00:00:00 [place] aaa-[id number] [facility] [id number] [facility] [address] [id number] l [address] ([address]F/LI A[address], V/SA) [place] [address] 2020-05-31 2020-05-31 Inpatient E YURY, [place] [address] [id number] [facility] 09:31:00 14:13:00 [facility] [address] ([address]F/LI A[address], V/SA) [place] [address] 2020-05-10 2020-05-10 Outpatient STLMLC STLMLC [id number] Common 00:00:00 00:00:00 [facility] 2020-05-09 2020-05-09 Outpatient STLMLC STLMLC [id number] Common 00:00:00 00:00:00 [facility] 2020-05-05 2020-05-05 Outpatient STLMLC STLMLC [id number] Common 00:00:00 00:00:00 [facility] 2020-05-02 2020-05-02 Outpatient STLMLC STLMLC [id number] Common 00:00:00 00:00:00 [facility] 2020-05-02 2020-05-02 Outpatient STLMLC STLMLC [id number] Common 00:00:00 00:00:00 [facility] 2020-04-29 2020-04-29 Outpatient STLMLC STLMLC [id number] Common 00:00:00 00:00:00 [facility] 2020-04-25 2020-04-25 LEFT LOWER E [facility] [id number] 16:46:00 21:30:00 [facility] [address] ([address]F/LI A[address], V/SA) [place] [address] 2020-04-22 2020-04-22 Outpatient STLMLC STLMLC [id number] Common 00:00:00 00:00:00 [facility] 2020-04-20 2020-04-20 PROC&TX [facility] [id number] 15:39:00 16:03:00 NOT [facility] OUT PT [address] (LUF/LI AVE, V/SA) [place] [address] 2020-04-20 2020-04-20 Outpatient STLMLC STLMLC [id number] Common 00:00:00 00:00:00 [facility] 2020-04-20 2020-04-20 Outpatient STLMLC STLMLC [id number] Common 00:00:00 00:00:00 [facility] 2020-04-15 2020-04-15 Outpatient STLMLC STLMLC [id number] Common 00:00:00 00:00:00 [facility] 2020-04-13 2020-04-13 Outpatient STLMLC STLMLC [id number] Common 00:00:00 00:00:00 [facility] 2020-04-12 2020-04-12 Outpatient STLMLC STLMLC [id number] Common 00:00:00 00:00:00 [facility] 2020-04-11 2020-04-11 Outpatient STLMLC STLMLC [id number] Common 00:00:00 00:00:00 [facility] 2020-04-08 2020-04-08 Outpatient STLMLC STLMLC [id number] Common 00:00:00 00:00:00 [facility] 2020-04-06 2020-04-06 Outpatient STLMLC STLMLC [id number] Common 00:00:00 00:00:00 [facility] 2020-04-04 2020-04-04 Outpatient STLMLC STLMLC [id number] Common 00:00:00 00:00:00 [facility] 2020-03-31 2020-03-31 Outpatient STLMLC STLMLC [id number] Common 00:00:00 00:00:00 [facility] 2020-03-29 2020-03-29 Outpatient GEOVANI BLAS CAMILA [facility] [id number] 00:00:00 00:00:00 PRAVEEN payton 2020-03-29 2020-03-29 Outpatient STLMLC STLMLC [id number] Common 00:00:00 00:00:00 [facility] 2020-03-28 2020-03-28 Outpatient STLMLC STLMLC [id number] Common 00:00:00 00:00:00 [facility] 2020-03-22 2020-03-22 Outpatient STLMLC STLMLC [id number] Common 00:00:00 00:00:00 [facility] 2020-03-21 2020-03-21 Outpatient STLMLC STLMLC [id number] Common 00:00:00 00:00:00 [facility] 2020-03-20 2020-03-20 FEDE COTTON, [facility] [place] [facility] [id number] [facility] [address] 17:08:00 22:56:00 ABDOMINAL REHAN [place] Lu s PAIN [place], [facility] UNSPECIFIE [address] (LUF/LI A[address], V/SA) [place] [address] 2020-03-14 2020-03-17 CELLULITIS E TRMAYA, [facility] [place] [id number] 14:54:00 11:30:00 OF B[facility] [place] Lu s ABDOMINAL [place], [facility] a WALL [address] ([address]F/LI A[address], V/SA) [place] [address] 2020-03-03 2020-03-03 Outpatient [facility] [id number] Common 13:33:00 13:33:00 Clinics Clinics [facility] Health I Health I [facility] 2020-03-02 2020-03-02 FE RYAN WOLFE, [facility] [id number] 05:58:00 15:35:00 PERITON LIZBETH [facility] ADHES [facility] POSTINFECT [address] KIERAN [address] (LUF/LI A[address], V/SA) [place] [address] 2020-03-02 2020-03-02 [facility] [id number] Common 00:00:00 00:00:00 [facility] 2020-03-01 2020-03-01 Outpatient [facility] [id number] Common 09:15:00 09:15:00 Clinics [facility] 2020-02-29 2020-02-29 Outpatient [facility] [id number] Common 09:30:00 09:30:00 [facility] 2020-02-25 2020-02-27 LOWER E YURY, [facility] [place] [id number] [facility] 13:21:00 12:09:[address] [facility] UNSPECIFIE [address] D [address] (LUF/LI A[address], V/SA) [place] [address] 2020-02-25 2020-02-25 UNSPECIFIE E RODRICK, [facility] [id number] [facility] 00:40:00 05:00:00 D JUAN [facility] a PAIN [address] ([address]F/LI A[address], V/SA) [place] [address] 2020-01-25 2020-01-25 LOW BACK 1 YURY, [facility] [place] [id number] [facility] 11:28:00 13:15:00 PAIN RE[facility]AN [facility] [address] ([address]F/LI [address], V/SA) [place] [address] 2020-01-18 2020-01-18 [facility] [id number] Common 11:45:00 11:45:00 Clinics [facility] 2019-12-09 2019-12-09 OTHER E [facility] [id number] [facility] 03:03:00 05:08:00 [place] [facility] [place] [address], V/SA) [place] [address] 2019-11-24 2019-11-24 UNSPECIFIE E [facility] [id number] [facility] 00:31:00 05:30:00 D [facility] ABDOMINAL [place], [facility] a PAIN [address], V/SA) [place] [address] 2019-10-07 2019-10-07 RIGHT 1 [place], [facility] [id number] 20:35:00 23:10:00 LOWER [facility] QUADRANT [place], [facility] PAIN [address], V/SA) [place] [address] 2019-09-20 2019-09-20 RIGHT 1 [place], [facility] [id number] [facility] 00:33:00 04:23:00 LOWER [facility]RANT [place], [facility] PAIN [address], V/SA) [place] [address] 2019-08-17 2019-08-17 UNSPECIFIE 1 TRUX, [facility] [id number] [facility] 02:18:00 04:45:00 D [facility] ABDOMINAL [place], Memori a PAIN [address], V/SA) [place] [address] 2019-04-22 2019-04-22 Outpatient [facility] [id number] Common 12:03:00 12:03:00 Clinics [facility] Health [facility] 2019-04-14 2019-04-14 Outpatient [facility] [id number] Common 16:12:00 16:12:00 Clinics [facility] Health I [facility] 2019-04-06 2019-04-06 Outpatient [facility] [id number] Common 12:16:00 12:16:00 Clinics [facility] Health I [facility] 2019-03-31 2019-03-31 Outpatient [facility] [id number] Common 14:00:00 14:00:00 Clinics [facility] 2018-12-07 2018-12-07 UNSPECIFIE 1 DARYLYANNICKQUINTIN [facility] [id number] [facility] St 01:06:00 04:45:00 D [facility] [place] [facility] CYST RIGHT [place] [address], V/SA) [place] [address] 2018-10-29 2018-10-29 N-PRSS CHR [place], [facility] [id number] [facility] St 06:59:00 23:59:00 ULCR SKIN MIKY [facility] [address], V/SA) [place] [address] 2018-10-22 2018-10-22 N-PRSS CHR [place], [facility] [id number] [facility] St 07:20:00 23:59:00 ULCR SKIN MIKY [facility] [address] ([address], V/SA) [place] [address] 2018-10-15 2018-10-15 N-PRSS CHR O BLAKE[place], [facility] [id number] [facility] St 07:08:00 23:59:00 ULCR SKIN MIKY [facility] [address], V/SA) [place] [address] 2018-09-30 2018-10-01 INFCT FOL 1 SHABNAM, [facility] [id number] [facility] St 18:46:00 01:05:00 PRC SUPF DIMAS [facility] SIT INIT [address] ([address], V/SA) [place] [address] 2018-09-01 2018-09-01 OTH 1 WANDA, [facility] [id number] [facility] [facility] St 09:12:00 14:00:00 NONINFL [facility] D/O OVARY [place], [facility] a TUBE&BRD [address] ([address]F/[address], V/SA) [place] [address] 2018-05-13 2018-05-13 Inpatient 1 WANDA, [facility] [id number] [facility] St 10:52:00 13:46:[address] [facility] [address], V/SA) [place] [address] 2017-12-24 2017-12-24 UNSPECIFIE 1 QUINTIN BRITO [facility] [id number] [facility] St 07:51:00 13:52:00 D OVARIAN [facility] s CYST RIGHT [place], [facility] SIDE [address] ([address], V/SA) [place] [address] 2017-06-20 2017-06-21 HYDRONPHRO 1 RODRICK, [facility] [id number] [facility] St 23:01:00 03:55:00 S JUAN [facility] RENL&URETR [place], [facility] L CALCUL [address] ([address], V/SA) [place] [address] 2017-05-13 2017-05-13 OTHER 3 MERLE, [facility] [id number] [facility] St 15:40:00 23:59:[address] [facility] [address] ([address], V/SA) [place] [address] Results Test Description Test Time Test Comments Results Result Comments Source POCT MOLECULAR FLU 2021-11-29 22:58:14 Test Item Value Reference Range Interpretation Comme nts POCT Molecular FluA (test code = 68361-1) Negative Negative POCT Molecular FluB (test code = 01158-3) Negative Negative Lab Interpretation (test code = 31459-3) [facility]2021-10-16 13:57:00 Test Item Value [...] (test code = 0.2 mg/dl 0.0-1.1 IBIL) [id number] 13:57:00 Test Item Value Reference Range Interpretation Comments Lipase (test code = LIPA) 114 U/L 73-393 AMYLASE, [id number] 13:57:00 Test Item Value Reference Range Interpretation Comments Amylase (test code = AMYL) 51 U/L 25-115 STAT LAB CHEM [id number] 22:45:00 Test Item Value Reference Range Interpretation [...] 24.0-29.0 L STAT LAB CBC WITH AUTO [id number] 22:43:00 Test Item Value Reference Range Interpretation [...] = IG%) 0.2 % 0.0-0.4 HEPATIC FUNCTION [id number] 13:03:00 Test Item Value Reference Range Interpretation [...] 96 Unit/L 45-117 N code = ALKP) [id number] 13:03:00 Test Item Value Reference Range Interpretation Comments LIPASE (test code = LIP) 83 Unit/L 114-286 L BASIC METABOLIC [id number] 13:03:00 Test Item Value Reference Range Interpretation [...] 8.5-10.1 N UA RFLX MICR CULT IF [id number] 12:44:00 Test Item Value Reference Range Interpretation [...] OF URINE: CLEAN CATCH- CT ABD PELVIS [id number] 12:27:00 [facility] BETHDIEUDONNE WhitingDAVIDE [place] : 1985 Sex: F [facility]: [facility] [place] [facility] 1985 Age/S: 36 / F [address] Unit #: [id number] Loc: [place] [address] Phys: Marco Hilton 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 [...] portal vein is patent and normal in size.The kidneys are normal in size. No hydronephrosis or nephrolithiasis is identified. The urinary bladder is decompressed. There are postsurgical changes involving the stomach. The small bowel, and large bowel are normal in appearance. No bowel obstruction is identified. No lymphadenopathy is identified in the abdomen or pelvis. No free fluid or free air. The IVC [...] or kV according to patient size and/or use of iterative reconstruction technique. PAGE 1 Signed Report (CONTINUED) Name: LAUREN BETH [facility] : 1985 Age/S: 36 / F [address] Unit #: [id number] Loc: [place] [id number] Phys: Marco Hilton NP Acct: [id number] Dis Date: Status: REG ER PHONE #: [phone] Exam Date: 08/07/20213 FAX #: Reason: LLQ ABD PAIN EXAMS: CPT: [id number] CT ABD PELVIS W/CONT 73577 &l t;Continued> at 1227 Reported and signed by: Alma Cartwright M.D. CC: Olga Clements DO; Marco Hilton NP Technologist:RT Danyelle(R) CTDI: DLP: Trnscb Date/Time: 08/07/2021 (1227) VereniceMD16 Orig Print D/T: S: 08/07/2021 (0609) PAGE 2 Signed ReportCBC W/AUTO [id number] 12:23:00 Test Item Value Reference Range Interpretation [...] DIFF/SCN CRITERIA = MDIFF) CORONAVIRUS 2019 (IN [place])(3HR)2021-03-24 17:04:00 Test Item Value Reference Range Interpretation Comments FT (test code Negative Negative N The [employer] SARS -CoV-2 = COVID) (qualifier value) Reagents f or BD MAX System, the [employer] Covid-19, and t Cepheid Covid-1 9 is for in vitro us e under FDA Emergency U se Authorization o nly. Each method abo ve is a rapid, real alice e PCR (RT-PCR) molecu lar test used for t he qualitative det ection of nucleic acid from the SARS-CoV-2 in upper respirato ry specimens colle cted from individual s suspected of CO VID-19. For questions regarding your test results, please contact the [facility] at [phone]. [id number] 12:37:00 Test Item Value Reference Range Interpretation [...] 0.5-1.3 code = CREA) EGFR if >60 Cymro (test code mL/min/1.73m\\ = EGFRAA) S\\2 EGFR if Non- >60 Estimate d Glomerular Cymro (test code mL/min/1.73m\\ Filtrat ion Rate (eGFR) = EGFRNA) S\\2 Reference Inter vals Decision Points for 18 years and older and average body ma ss: >= 60 Does not exc lude kidney disease. 30 - 59 Suggests mod erate chronic kidney disease and indicates t he need for further investigation including asses sment of proteinuria and cardiovascular factors. < 30 U sually indicates a nee d for referral for assessment and management of c hronic kidney failure. STAT LAB [id number] 12:11:00 Test Item Value Reference Range Interpretation [...] after the clini felipa event. PT AND [id number] 12:09:00 Test Item Value Reference Range Interpretation Comments Protime (test code 9.5 seconds 9.5-12.1 = PT) INR (test code = 0.9 0.9-1.1 INR results are intended INR) ONLY to monitor Oral Anticoagulant t herapy in stablized patie nts. The INR Therapeutic Range is 2.0 - 3.0 Patie nts with a mechanical he art, the INR Range is 2. 5 - 3.5 [id number] 12:09:00 Test Item Value Reference Range Interpretation Comments aPTT (test code = PTT) 22.3 seconds 23.9-30.7 L STAT LAB CBC WITH AUTO [id number] 11:57:00 Test Item Value Reference Range Interpretation [...] 0.3 % 0.0-0.4 XR CHEST AP/PA 1 [id number] 11:33:32 [facility])Name: LAUREN BETH : 1985 Sex: FProcedure: XR CHEST AP/PA 1 VIEWOrder Date: 03/24/2021 10:57 AMOrdering Provider: REHAN Farrellinical Indication: [id number]: DyspneaComparison: September 30, 2018Findings:Cardiac size is normal.Pulmonary vasculature is normal.Mediastinal contour is normal.Aortic contour is normal.No acute infiltrates or effusions.There is no mass or pneumothorax.There is no evidence of active tuberculosis.There isno acute skeletal abnormality.Impression: Negative AP view of the chest.This final report was electronically signed by Dr Farzad Dewitt MD :28 AMDictated By: FARZAD DEWITT.Date: 111:28CULTURE, [id number] 08:00:00Specimen: Urine SpecimensCollected: 03/10/2021 11:50 Status: Final Last Updated: 03/12/2021 08:00 CULTURE (Final) (Final) Very Few Mixed Body Gabriela Isolated No Pathogens IsolatedURINALYSIS WITH MICROSCOPIC 2021-03-10 12:57:00 Test Item Value Reference Range Interpretation Comments Color (test code = Light-Yellow UCOLR) Clarity (test code = Cloudy UCLAR) Glucose (test code = NEGATIVE NEGATIVE N UGLUC) Bilirubin (test code NEGATIVE NEGATIVE N = UBILI) Ketones (test code = NEGATIVE NEGATIVE N UKET) Specific [place] 1.015 1.005-1.030 A (test code = USPGR) Blood (test code = NEGATIVE NEGATIVE N UBLD) PH (test code = UPH) 7.0 4.5-8.0 A Protein (test code = NEGATIVE NEGATIVE N UPROT) Urobilinogen (test 0.2 See_Comment N [Automat ed message] code = U UROB) The system [facility] generated this result transmit michael reference range [...] = NSE) STAT LAB CBC WITH AUTO [id number] 12:10:00 Test Item Value Reference Range Interpretation [...] 0.8 % 0.0-0.4 H STAT LAB CHEM [id number] 12:08:00 Test Item Value Reference Range Interpretation [...] = CREA) 0.5 mg/dl 0.6-1.3 L CULTURE, [id number] 08:26:00Specimen: Urine SpecimensCollected: 02/23/2021 08:35 Status: Final Last Updated: 02/24/2021 08:26 CULTURE (Final) (Final) Many Mixed Body Gabriela Isolated No Pathogens IsolatedCT ABDOMEN/PELVIS W/CONTRAST 2021-02-23 11:40:43 [facility]Name: LAUREN BETH : 1985 Sex: FProcedure: CT ABDOMEN/PELVIS W/CONTRASTOrder date: 02/23/2021 10:08 AMOrdering Provider: REHAN Farrellinical Indication: [id number]: Right lower quadrant painComparison: November 14, 2020Technique: [...] or adenopathy. No free fluid orpneumoperitoneum.Status post appendectom y.Urinary bladder is unremarkable. No pelvic masses or adenopathy seen. Perirectalfat planes are preserved.Osseous structures of the abdomen and pelvis are nonacute.Impression:1. Nonacute CT of the abdomen and pelvis with IV contrast.2. Hepatic steatosis.3. Postoperative changes as above.This final rep ort was electronically signed by Dr Wiley Velázquez MD 111:35 AMDictated By: WILEY VELÁZQUEZDate: 02/23/2021 11:[id number] 10:44:00 Test Item Value Reference Range Interpretation Comments Lipase (test code = LIPA) 86 U/L 73-393 URINALYSIS WITH [id number] 08:58:00 Test Item Value Reference Range Interpretation Comments Color (test code = Light-Yellow UCOLR) Clarity (test code = Clear UCLAR) Glucose (test code = NEGATIVE NEGATIVE N UGLUC) Bilirubin (test code NEGATIVE NEGATIVE N = UBILI) Ketones (test code = NEGATIVE NEGATIVE N UKET) Specific [place] 1.020 1.005-1.030 A (test code = USPGR) Blood (test code = NEGATIVE NEGATIVE N UBLD) PH (test code = UPH) 6.0 4.5-8.0 A Protein (test code = NEGATIVE NEGATIVE N UPROT) Urobilinogen (test 0.2 See_Comment N [Automat ed message] code = U UROB) The system [facility] generated this result transmit michael reference range [...] = SQEP) STAT LAB CBC WITH AUTO [id number] 08:52:00 Test Item Value Reference Range Interpretation [...] IG%) 0.3 % 0.0-0.4 STAT LAB CHEM [id number] 08:52:00 Test Item Value Reference Range Interpretation [...] mg/dl 0.6-1.3 STAT LAB CBC WITH AUTO [id number] 02:37:00 Test Item Value Reference Range Interpretation [...] A value of 55 was entered by [id number] on 01/10/2021 02:3 7 Lymphocytes (test 43 % 13-42 H No previou s value code = LYMPH) was reported. A value of 43 was entered by [id number] on 01/10/2021 02:3 7 Monocytes (test 1 % 4-14 L No previous value code = MONOS) was reported. A value of 1 was entered by [id number] on 01/10/2021 02:3 7 Basophils (test 1 % 0-1 No previous value code = BASO) was reported. A value of 1 was entered by [id number] on 01/10/2021 02:3 7 Normal Morphology Normal WBC RBC Normal RBC \\T\\ N No pre vious value (test code = NRCM) and Platelet WBC was repor michael. A Morphology Morphology,Normal value of N ormal WBC RBC and WBC RBC and Platelet Platelet Morphology Morphology was entered by [id number] on 01/10/2021 02:3 7 AMYLASE, [id number] 02:14:00 Test Item Value Reference Range Interpretation Comments Amylase (test code = AMYL) 46 U/L 25-115 [id number] 02:14:00 Test Item Value Reference Range Interpretation Comments Lipase (test code = LIPA) 115 U/L 73-393 URINALYSIS WITH [id number] 02:07:00 Test Item Value Reference Range Interpretation Comments Color (test code = Light-Yellow UCOLR) Clarity (test code = Cloudy UCLAR) Glucose (test code = NEGATIVE NEGATIVE N UGLUC) Bilirubin (test code NEGATIVE NEGATIVE N = UBILI) Ketones (test code = NEGATIVE NEGATIVE N UKET) Specific [place] 1.025 1.005-1.030 A (test code = USPGR) Blood (test code = NEGATIVE NEGATIVE N UBLD) PH (test code = UPH) 6.0 4.5-8.0 A Protein (test code = NEGATIVE NEGATIVE N UPROT) Urobilinogen (test 0.2 See_Comment N [Automat ed message] code = U UROB) The system [facility] generated this result transmit michael reference range [...] (test code = NSE) STAT LAB CHEM [id number] 01:50:00 Test Item Value Reference Range Interpretation [...] 0.6 mg/dl 0.6-1.3 - CT ABD PELVIS W/[id number] 03:46:00 [facility] 1985 Sex: F FAX: Annemarie Tesfaye [phone] [place]: St: REG Name: LAUREN BETH [facility] : 1985 Age/S: 35/F [address] Unit: [id number] Loc: [place] [address] Phys: Annemarie Tesfaye SENIOR DIGITAL DESIGNER Acct: [id number] Dis Date: Status: REG ER PHONE #: [phone] Exam Date: 12/13/2020 0325 FAX #: [phone]: DIFFUSE ABD PAIN WORSE RLQ, HX APPY, ROSE EXAMS: CPT CODE: [id number] CT ABD PELVIS W/CONT 50567 AFTER HOURS SERVICE ON: 12/13/2020 3:[address] Scan of the Abdomen and Pelvis With Contrast Location Code M12 History: DIFFUSE ABD PAIN WORSE RLQ, HX APPY, ROSE Technique: Axial and reconstructed coronal scans were performed on a helical scanner post IV contrast. One or more of the following dose reduction techniques were used: Automated [...] the stomach, cholecystectomy, appendectomy and hysterectomy. at 1106 Reported and signed by: Neo Huber MD PAGE 1 Signed Report (CONTINUED) FAX: Annemarie Tesfaye [phone] [place]: St: REG Name: LAUREN BETH [facility] : 1985 Age/S: 35/F [address] Unit: [id number] Loc: [place] [address] Phys: Annemarie Tesfaye NP Acct: [id number] Dis Date: Status: REG ER PHONE #: [phone] Exam Date: 12/13/2020 0325 FAX #: [phone] Reason: DIFFUSE ABD PAIN WORSE RLQ, HX APPY, ROSE EXAMS: CPT CODE: [id number] CT ABD PELVIS W/CONT 51542 <Continued> CC: Annemarie Tesfaye SENIOR DIGITAL DESIGNER Technologist: PAMELA KRISHNAMURTHY; Jessi Guillory; JAIRO SANCHEZ JR Trnscrd Dt/Tm: 12/13/2020 (0346) t.[email or web address] OrigPrint D/T: S: 12/13/2020 (3755 PAGE 2 Signed ReportCOMPREHENSIVE METABOLIC PANEL 2020-12-13 03:32:00 Test Item Value Reference Range Interpretation [...] U/L 38-126 N (test code = ALKP) [id number] 03:32:00 Test Item Value Reference Range Interpretation Comments LIPASE (test code = LIP) 82 U/L 23-300 N BEDSIDE [id number] 03:24:00 Test Item Value Reference Range Interpretation Comments BEDSIDE CREATININE (test code = 0.60 mg/dL 0.51-1.19 N CREATBED) CBC W/AUTO [id number] 03:14:00 Test Item Value Reference Range Interpretation [...] 0.0-0.1 N UA RFLX MICR CULT IF [id number] 02:59:00 Test Item Value Reference Range Interpretation [...] PH DIPSTICK (test 6.0 5.0-8.0 code = OLRETTA) UA PROTEIN DIPSTICK NEGATIVE mg/dL Negative (test code = PROU) UA UROBILINOGEN Negative mg/dL Negative DIPSTICK (test code = URO) UA NITRITE DIPSTICK Negative Negative (test code = ISAAK) UA LEUKOCYTE NEGATIVE Negative ESTERASE DIPSTICK (test code = LEUU) UA WBC (test code = 0-3 /HPF See_Comment <10 WBC/ HPF = WBCUR) PYURIA ABSENT URINE CULTURE N OT INDICATED [Automated message] The system which generated [...] OF URINE: VOIDEDSTAT LAB CBC WITH AUTO [id number] 15:12:00 Test Item Value Reference Range Interpretation [...] A value of 63 was entered by [employer] 82 on 12/12/2020 15:12 Bands (test code [...] 82 on 12/12/2020 15:12 STAT LAB CHEM [id number] 14:08:00 Test Item Value Reference Range Interpretation [...] mg/dl 0.6-1.3 L STAT LAB URINALYSIS WITHOUT [id number] 12:08:00 Test Item Value Reference Range Interpretation Comments Color (test code = Light-Yellow UCOLR) Clarity (test code = Cloudy UCLAR) Glucose (test code = NEGATIVE NEGATIVE N UGLUC) Bilirubin (test code NEGATIVE NEGATIVE N = UBILI) Ketones (test code = NEGATIVE NEGATIVE N UKET) Specific [place] 1.015 1.005-1.030 A (test code = USPGR) Blood (test code = NEGATIVE NEGATIVE N UBLD) PH (test code = UPH) 7.0 4.5-8.0 A Protein (test code = NEGATIVE NEGATIVE N UPROT) Urobilinogen (test 0.2 See_Comment N [Automat ed message] code = U UROB) The system [facility] generated this result transmit michael reference range [...] = 0.4 mg/dl 0.0-1.1 IBIL) URINALYSIS WITH [id number] 08:31:00 Test Item Value Reference Range Interpretation Comments Color (test code = Light-Yellow UCOLR) Clarity (test code = Clear UCLAR) Glucose (test code = NEGATIVE NEGATIVE N UGLUC) Bilirubin (test code NEGATIVE NEGATIVE N = UBILI) Ketones (test code = NEGATIVE NEGATIVE N UKET) Specific [place] 1.020 1.005-1.030 A (test code = USPGR) Blood (test code = NEGATIVE NEGATIVE N UBLD) PH (test code = UPH) 6.5 4.5-8.0 A Protein (test code = NEGATIVE NEGATIVE N UPROT) Urobilinogen (test 0.2 See_Comment N [Automat ed message] code = U UROB) The system [facility] generated this result transmit michael reference range [...] (test code = SQEP) STAT LAB CHEM [id number] 08:27:00 Test Item Value Reference Range Interpretation [...] 0.6-1.3 L STAT LAB CBC WITH AUTO [id number] 08:26:00 Test Item Value Reference Range Interpretation [...] 0.0-0.4 XR ABDOMEN 2 VIEWS FLAT / [id number] 08:18:50 [facility])Name: LAUREN BETH : 1985 Sex: FProcedure: XR ABDOMEN 2 VIEWS FLAT / UPRIGHTOrder Date: 11/21/2020 7:43 AMOrdering Provider: REHAN Farrellinical Indication: [id number]: Abdominal painComparison: Nov 14 2020Findings:Bowel gas pattern is non-obstructive. No pneumoperitoneum.There is moderate volume stool burden.Surgical clips inthe right upper quadrant of the abdomen.Impression:Nonobstructive bowel gas pattern.This final report was electronically signed by Dr Silver Benitez MD :13 AMDictated By: GLORY BENITEZKDate: 11/21/2020 08:13CT ABDOMEN/PELVIS W/O [id number] 14:11:31 [facility])Name: LAUREN BETH : 1985 Sex: FProcedure: CT ABDOMEN/PELVIS W/O CONTRASTOrder Date: 11/14/2020 1:22 PMOrdering Provider: BILLY ACOSTA .Clinical Indication: [id number]: Right flank painComparison: Renal ultrasound November 08, [...] collection.The pancreas is normal in size and density.There are no pancreaticcalcifications or masses. There is no pancreatic ductal dilatation.The adrenal glands are normal in size bilaterally.There are no adrenal masses bilaterally.The right kidney is normal in size and shape.There are no calculi, masses, or hydronephrosis.The left kidney is normal in size and shape.There are 2 adjacent calculi within an interpolar calyx measuring 2 mm indiameter. No ureteral calculi or hydronephrosis. No masses.Aorta is normal in size and diameter. There is no aneurysm.The IVC is normal in size and location.There is no lymphadenopathy in the abdomen, pelvis, or either inguinal region.Postoperative change consisting of gastric sleeve.There is no small or large bowel distention. There is no bowel thickening. Thereare no inflammatory changes in the abdomen or pelvis.The appendix has been removed.Urinary bladder has a normal appearance.The uterus has been removedNo inguinal masses.There is no skeletal lesion.IMPRESSION:1. Nonobstructive left nephrolithiasis.2. No other urinary tract calculi or hydronephrosis bilaterally.3. No acute inflammatory change in the abdomen or pelvis.4. Postoperative change consisting of gastric sleeve procedure, cholecystectomy,appendectomy, and hysterectomy.5. No other significant findings.This final report was electronically signed by Dr Farzad Dewitt MD :05 PMDictated By: FARZAD DEWITTDate: 11/14/2020 14:05STAT LAB , [id number] 13:31:00 Test Item Value Reference Range Interpretation Comments (Urine) (test code = Negative PREGU) ONLY AVAILABLE 8A-12MNSTAT LAB CHEM [id number] 11:09:00 Test Item Value Reference Range Interpretation [...] mg/dl 0.6-1.3 L STAT LAB URINALYSIS WITHOUT [id number] 11:08:00 Test Item Value Reference Range Interpretation Comments Color (test code = Yellow Lt. Yellow A UCOLR) Clarity (test code = Clear UCLAR) Glucose (test code = Negative Negative N UGLUC) Bilirubin (test code Negative Negative N = UBILI) Ketones (test code = Negative Negative N UKET) Specific [place] 1.025 1.005-1.030 A (test code = USPGR) Blood (test code = Trace-intact Negative A UBLD) PH (test code = UPH) 6.0 4.5-8.0 A Protein (test code = Negative Negative N UPROT) Urobilinogen (test 0.2 See_Comment N [Automat ed message] code = U UROB) The system [employer] generated this result transmit michael reference range : 0.2. The refere nce range was not u sed to interpret th is result as normal/abnormal . Nitrite (test code = Negative Negative N UNITR) Leukocyte Esterase Negative Negative N (test code = ULEUK) STAT LAB CBC WITH AUTO [id number] 11:05:00 Test Item Value Reference Range Interpretation [...] code = IG%) 0.4 % 0.0-0.4 CULTURE, [id number] 08:43:00Specimen: Urine SpecimensCollected: 11/08/2020 09:59 Status: Final Last Updated: 11/09/2020 08:43 CULTURE (Final) (Final) Few Mixed Body Gabriela Isolated No Pathogens IsolatedUS RENAL & BLADDER (KIDNEYS) 2020-11-08 12:00:[address] [facility] ([facility])Name: LAUREN BETH : 1985 Sex: FProcedure: US RENALOrder Date: 11/08/2020 9:55 AMOrdering Provider: REHAN Farrellinical Indication: N13.2: HYDRONEPHROSIS WITH RENAL AND URETERAL CALCULOUSOBSTRUCTIONComparison: August 06, 2020Technique: Real-time ultrasonography was obtained over the kidneys and urinarybladder and repre sentative images were recorded.Findings:Right kidney: The kidney is normal in size. No hydronephrosis. Renal corticalechogenicity and thickness is within normal limits.Left kidney: The kidney is normalin size. No hydronephrosis. Renal corticalechogenicity and thickness is within normal limits. 3 mm nonobstructing stone inthe lower pole of the kidney.Bladder: Unremarkable .Impression:1. Nonobstructing left renal stone.2. Otherwise, negative exam.This final report was electronically signed by Dr Silver Benitez MD 111:54 AMDictated By: GLORY BENITEZKDate: 11/08/2020 11:54URINALYSIS WITH [id number] 10:58:00 Test Item Value Reference Range Interpretation Comments Color (test code = Yellow UCOLR) Clarity (test code = Clear UCLAR) Glucose (test code = NEGATIVE NEGATIVE N UGLUC) Bilirubin (test code = NEGATIVE NEGATIVE N UBILI) Ketones (test code = NEGATIVE NEGATIVE N UKET) Specific [place] (test 1.030 1.005-1.030 A code = USPGR) Blood (test code = NEGATIVE NEGATIVE N UBLD) PH (test code = UPH) 6.0 4.5-8.0 A Protein (test code = NEGATIVE NEGATIVE N UPROT) Urobilinogen (test code 0.2 See_Comment N [Au tomated message] = U UROB) The system [employer] generated this result transmitted ref erence range: [...] 0-10 A (test code = SQEP) CULTURE, [id number] 08:13:00ER 17Specimen: Urine SpecimensCollected: 11/01/2020 01:10 Status: Final Last Updated: 11/02/2020 08:13 (1) ER 17 CULTURE (Final) (Final) Few Mixed Body Gabriela Isolated No Pathogens IsolatedXR ABD SERIES W/PA [id number] 03:48:37 [facility]Name: LAUREN BETH : 1985 Sex: FPROCEDURE INFORMATION:Exam: XR Complete Acute Abdomen SeriesExam date and time: 11/01/2020 2:58AMAge: 35 years oldClinical indication: Abdominal pain; Patient HX: Hysterectomy, cholecystectomyTECHNIQUE:Imaging protocol: XR complete acute abdomen series, including 2 or more viewsof the abdomen and a single view chest.COMPARISON:CR XR ABDOMEN 1 VIEW (KUB) 09/12/2020 1:26 AMFINDINGS:Lungs: No mass,consolidation or pulmonary edema identified in either lung.Pleural [...] mg/dl 0.0-1.1 IBIL) ER 17STAT LAB CHEM [id number] 01:57:00 Test Item Value Reference Range Interpretation [...] 0.5 mg/dl 0.6-1.3 L ER 17URINALYSIS WITH [id number] 01:56:00 Test Item Value Reference Range Interpretation Comments Color (test code = Light-Yellow UCOLR) Clarity (test code = Clear UCLAR) Glucose (test code = 50 NEGATIVE A UGLUC) Bilirubin (test code NEGATIVE NEGATIVE N = UBILI) Ketones (test code = NEGATIVE NEGATIVE N UKET) Specific [place] 1.025 1.005-1.030 A (test code = USPGR) Blood (test code = NEGATIVE NEGATIVE N UBLD) PH (test code = UPH) 6.0 4.5-8.0 A Protein (test code = TRACE NEGATIVE A UPROT) Urobilinogen (test 0.2 See_Comment N [Automat ed message] code = U UROB) The system [employer] generated this result transmit michael reference range [...] SQEP) ER 17STAT LAB CBC WITH AUTO [id number] 01:55:00 Test Item Value Reference Range Interpretation [...] code = 0.1 mg/dl 0.0-1.1 IBIL) er [id number] 01:26:00 Test Item Value Reference Range Interpretation Comments Lipase (test code = LIPA) 154 U/L 73-393 ER 10STAT LAB CHEM [id number] 01:15:00 Test Item Value Reference Range Interpretation [...] 0.6 mg/dl 0.6-1.3 er 10STAT LAB , [id number] 01:14:00 Test Item Value Reference Range Interpretation Comments (Urine) (test code = Negative PREGU) er 10STAT LAB CBC WITH AUTO [id number] 01:13:00 Test Item Value Reference Range Interpretation [...] = IG%) 0.9 % 0.0-0.4 H er [id number] 04:21:00 Test Item Value Reference Range Interpretation [...] code = 0.1 mg/dl 0.0-1.1 IBIL) AMYLASE, [id number] 04:21:00 Test Item Value Reference Range Interpretation Comments Amylase (test code = AMYL) 47 U/L 25-115 URINALYSIS WITH [id number] 03:06:00 Test Item Value Reference Range Interpretation Comments Color (test code = Light-Yellow UCOLR) Clarity (test code = Clear UCLAR) Glucose (test code = NEGATIVE NEGATIVE N UGLUC) Bilirubin (test code NEGATIVE NEGATIVE N = UBILI) Ketones (test code = TRACE NEGATIVE A UKET) Specific [place] 1.025 1.005-1.030 A (test code = USPGR) Blood (test code = NEGATIVE NEGATIVE N UBLD) PH (test code = UPH) 5.5 4.5-8.0 A Protein (test code = NEGATIVE NEGATIVE N UPROT) Urobilinogen (test 0.2 See_Comment N [Automat ed message] code = U UROB) The system [facility] generated this result transmit michael reference range [...] (test code = NSE) STAT LAB CHEM [id number] 02:51:00 Test Item Value Reference Range Interpretation [...] mg/dl 0.6-1.3 STAT LAB CBC WITH AUTO [id number] 02:50:00 Test Item Value Reference Range Interpretation [...] H XR ABDOMEN 1 VIEW (KUB)2020-09-12 01:51:21 [facility])Name: LAUREN BETH : 1985 Sex: FPROCEDURE INFORMATION:Exam: [...] ALLENDate: 09/12/2020 01:50STAT LAB CBC WITH AUTO [id number] 01:29:00 Test Item Value Reference Range Interpretation [...] IG%) 0.4 % 0.0-0.4 STAT LAB CHEM [id number] 01:28:00 Test Item Value Reference Range Interpretation [...] = CREA) 0.6 mg/dl 0.6-1.3 URINALYSIS WITH [id number] 03:04:00 Test Item Value Reference Range Interpretation Comments Color (test code = Yellow UCOLR) Clarity (test code = Clear UCLAR) Glucose (test code = 100 NEGATIVE A UGLUC) Bilirubin (test code = NEGATIVE NEGATIVE N UBILI) Ketones (test code = TRACE NEGATIVE A UKET) Specific [place] (test >=1.030 1.005-1.030 A code = USPGR) Blood (test code = NEGATIVE NEGATIVE N UBLD) PH (test code = UPH) 5.5 4.5-8.0 A Protein (test code = NEGATIVE NEGATIVE N UPROT) Urobilinogen (test code 0.2 See_Comment N [Au tomated message] = U UROB) The system [employer] generated this result transmitted ref erence range: [...] code = 3+ None Seen,Trace A UBACT) [id number] 03:01:00 Test Item Value Reference Range Interpretation [...] , each yielding differ ent values. This co rrected result was base d on the formula: Co rrected Calcium = Serum Calcium + [0.8 * ( 4 - SerumAlbumin)] EGFR if >60 Cymro (test code mL/min/1.73m\\ = EGFRAA) S\\2 EGFR if Non- >60 Estimate d Glomerular Cymro (test code mL/min/1.73m\\ Filtrat ion Rate (eGFR) = EGFRNA) S\\2 Reference Inter vals Decision Points for 18 years and older and average body ma ss: >= 60 Does not exc lude kidney disease. 30 - 59 Suggests mod erate chronic kidney disease and indicates t he need for further investigation including asses sment of proteinuria and cardiovascular factors. < 30 U sually indicates a nee d for referral for assessment and management of c hronic kidney failure. [id number] 03:01:00 Test Item Value Reference Range Interpretation Comments Lipase (test code = LIPA) 145 U/L 73-393 STAT LAB TEST, Serum [id number] 02:48:00 Test Item Value Reference Range Interpretation Comments (Serum) (test code = Negative PREGS) STAT LAB CBC WITH AUTO [id number] 02:28:00 Test Item Value Reference Range Interpretation [...] code = 0.1 mg/dl 0.0-1.1 IBIL) ER [id number] 02:59:00 Test Item Value Reference Range Interpretation Comments Lipase (test code = LIPA) 167 U/L 73-393 ER 16URINALYSIS WITH [id number] 02:48:00 Test Item Value Reference Range Interpretation Comments Color (test code = UCOLR) Yellow Clarity (test code = UCLAR) Clear Glucose (test code = UGLUC) NEGATIVE NEGATIVE N Bilirubin (test code = UBILI) NEGATIVE NEGATIVE N Ketones (test code = UKET) NEGATIVE NEGATIVE N Specific [place] (test code = >=1.030 1.005-1.030 A USPGR) [...] None Seen,Trace A ER 16CT ABDOMEN/PELVIS W/O [id number] 02:34:52ER 16 R/O KIDNEY STONE [facility] ([facility])Name: LAUREN BETH : [id number] Sex: FPROCEDURE INFORMATION:Exam: CT Abdomen And Pelvis [...] or iterative reconstruction.COMPARISON:CT ABDOMEN/PELVIS W/CONTRAST 06/07/2020 4:15 PMFINDINGS:Liver: Normal. No mass.Gallbladder and bile ducts: Status [...] bladder: The bladder appears decompressed.Reproductive: Status post hysterectomy.Bones/joints: Unremarkable. No acute fracture.Soft tissues: Unremarkable.IMPRESSION:1. Fluid and air fluid levels arepresent within the colon and rectal vault,findings that could represent mild colonic enteritis.2. Bilateral punctate nonobstructing renal calculi.This Final report was electronically signed by Hollis Ferrera MD on 2:34 AM CDT.Dictated By: HOLLIS FERRERADate: 08/06/2020 02:34STAT LAB CHEM [id number] 02:29:00 Test Item Value Reference Range Interpretation [...] L ER 16STAT LAB CBC WITH AUTO [id number] 02:29:00 Test Item Value Reference Range Interpretation [...] = IG%) 0.7 % 0.0-0.4 H ER [id number] 09:31:00 Test Item Value Reference Range Interpretation [...] IBIL) XR ABDOMEN 2 VIEWS FLAT / [id number] 09:22:50 [facility])Name: LAUREN BETH : [id number] Sex: FProcedure: XR ABDOMEN 2 VIEWS FLAT / UPRIGHTOrder Date: 07/19/2020 8:40 AMOrdering Provider: REHAN COTTON .Clinical Indication: [id number]: Abdominal painComparison: July 05, 2020Findings:Postoperative change consisting of gastric sleeve and cholecystectomy.There is no small or large bowel distention.There are no air- fluid levels.There is no pneumoperitoneum.There are no suspicious felipa cifications.There is no skeletal abnormality.Impression:1. No pneumoperitoneum or bowel obstruction.2. Postoperative change consisting of gastric sleeve and cholecystectomy.3. Exam otherwise negative.This final report was electronically signed by Dr Farzad Dewitt MD :17 AMDictated By: FARZAD DEWITT.Date: 07/19/2020 09:17STAT LAB CHEM [id number] 09:10:00 Test Item Value Reference Range Interpretation [...] 0.6-1.3 L STAT LAB CBC WITH AUTO [id number] 09:09:00 Test Item Value Reference Range Interpretation [...] % 0.0-0.4 H STAT LAB URINALYSIS WITHOUT [id number] 09:08:00 Test Item Value Reference Range Interpretation Comments Color (test code = UCOLR) Yellow Lt. Yellow A Clarity (test code = UCLAR) Clear Glucose (test code = UGLUC) Negative Negative N Bilirubin (test code = UBILI) Negative Negative N Ketones (test code = UKET) Negative Negative N Specific [place] (test code = USPGR) >=1.030 1.005-1.030 A Blood (test code = UBLD) Negative Negative N PH (test code = UPH) 6.0 4.5-8.0 A Protein (test code = UPROT) Negative Negative N Urobilinogen (test code = U UROB) 0.2 >0.2 N Nitrite (test code = UNITR) Negative Negative N Leukocyte Esterase (test code = Negative Negative N ULEUK) CULTURE, [id number] 08:00:00Specimen: Urine SpecimensCollected: 07/05/2020 03:00 Status: Final Last Updated: 07/07/2020 08:00 CULTURE (Final) (Final) No Growth After 48 HoursXR ABDOMEN 1 VIEW (KUB)2020-07-05 04:07:04 [facility])Name: LAUREN BETH : [id number] Sex: FPROCEDURE INFORMATION:Exam: XR Abdomen, 1 ViewExam date and time: 07/05/2020 3:13 AMAge: 34 years oldClinical indication: Abdominal pain; Generalized; Prior surgery; Surgery type:HysterectomyTECHNIQUE:Imaging protocol: XR of the abdomen.Views: Frontal supine view of the abdomen. 1 View.COMPARISON:CT ABDOMEN/PELVIS W/CONTRAST 06/07/2020 4:15 PMFINDINGS:Gastrointestinal tract: Surgical changes of the partially visualized stomach.Nonobstructed bowel gas pattern.Intraperitoneal space: Surgical clips right upper quadrant of the abdomen.Bones/joints: No acute findings.IMPRESSION:Nonobstructed bowel gas pattern.This Final report was electronically signed by Oskar Crane MD on 4:06 AM CDT.Dictated By: OSKAR CRANEte: 07/05/2020 04:06STAT LAB , [id number] 03:54:00 Test Item Value Reference Range Interpretation Comments (Urine) (test code = Negative PREGU) STAT LAB CHEM [id number] 03:53:00 Test Item Value Reference Range Interpretation [...] 0.6-1.3 L STAT LAB CBC WITH AUTO [id number] 03:51:00 Test Item Value Reference Range Interpretation [...] = IG%) 0.4 % 0.0-0.4 URINALYSIS WITH [id number] 03:33:00 Test Item Value Reference Range Interpretation Comments Color (test code = UCOLR) Yellow Clarity (test code = UCLAR) Clear Glucose (test code = UGLUC) NEGATIVE NEGATIVE N Bilirubin (test code = UBILI) Small NEGATIVE A Ketones (test code = UKET) TRACE NEGATIVE A Specific [place] (test code = USPGR) 1.020 1.005-1.030 A [...] UBACT) Trace None Seen,Trace N CT ABDOMEN/PELVIS W/[id number] 16:44:35 [facility] ([facility]/)Name: LAUREN BETH : [id number] Sex: FProcedure: CT ABDOMEN/PELVIS W/CONTRASTOrder date: 06/07/2020 3:47 PMOrdering Provider: REHAN Farrellinical Indication: [id number]: Left flank painComparison: 06/07/20Technique: Multiple axial helical CT images of the abdomen and pelvis wereobtained with IV contrast. Coronal and sagittalreformatted images were alsoobtained.This exam was performed according to the our departmental dose-o ptimizationprogram which includes automated exposure control, adjustment of the mA and/orkV according to patient size and/or use of iterative reconstruction techniques.Findings:Lung bases are clear andthe heart apex within normal limits. No inferiormediastinal abnormality. Inferior osseous structuresof the thorax areunremarkable.Status post cholecystectomy and gastric sleeve procedure. Mild hepaticsteatosisis noted.Stable 2 mm nonobstructing stone seen within the midpole of the left kidney.The remaining solid abdominal viscera are unremarkable. Stomach, small and largebowel are within normal limits.No peritoneal or retroperitoneal masses or adenopathy. No free fluid orpneumoperitoneum.No evidence of acute appendicitis.Urinary bladder is unremarkable. No pelvic masses or adenopathy seen. Perirectalfat planes are preserved.Osseous structures of the abdomen and pelvis are nonacute.Impression:1. Nonacute CT of the abdomen and pelvis with IV contrast.2. Other stable chronic incidental findings asabove.This final report was electronically signed by Dr Wiley Velázquez MD 06/07/20204:38 PMDictated By: WILEY VELÁZQUEZDate: 06/07/2020 16:38URINALYSIS WITH [id number] 15:22:00 Test Item Value Reference Range Interpretation Comments Color (test code = UCOLR) Yellow Clarity (test code = UCLAR) Clear Glucose (test code = UGLUC) NEGATIVE NEGATIVE N Bilirubin (test code = UBILI) NEGATIVE NEGATIVE N Ketones (test code = UKET) NEGATIVE NEGATIVE N Specific [place] (test code = USPGR) 1.020 1.005-1.030 A [...] Trace None Seen,Trace N STAT LAB CHEM [id number] 15:10:00 Test Item Value Reference Range Interpretation [...] 0.6-1.3 L STAT LAB CBC WITH AUTO [id number] 15:08:00 Test Item Value Reference Range Interpretation [...] PELVIS W/O CON (RENAL STONE)2020-06-07 14:56:05 [facility]Name: LAUREN BETH : [id number] Sex: FProcedure: CT ABD/ PELVIS W/O CON (RENAL STONE)Order date: 06/07/2020 2:18 PMOrdering Provider: REHAN Farrellinical Indication: [id number]: Left flank painComparison: 05/31/20TECHNIQUE: Using a helical [...] no masses.There is no hydronephrosis.The urinary bladder hasa normal appearance.There are no inflammatory changes in [...] electronically signed by Dr Wiley Velázquez MD 06/07/20202:49PMDictated By: WILEY VELÁZQUEZDate: 06/07/2020 14:49CT ABDOMEN/PELVIS W/O [id number] 12:27:07NPO 4 hours. Do not withhold meds hyst [facility])Name: LAUREN BETH : [id number] Sex: FProcedure: CT ABDOMEN/PELVIS W/O CONTRASTOrder Date: 05/31/2020 10:25 AMOrdering Provider: ME ANN MARIE MCBRIDEClinical Indication: [id number]: Pain radiating to right flankComparison: March 20, 2020Technique: Using a helical scanner, sequential axial imaging of the abdomen andpelvis was obtained without the administration of oral or IV contrast. The examextended from the level of the lung bases superiorly to the level of the pubicsymphysis inferiorly. 2-D sagittal and coronal reconstructed images wereobtained. This exam was performed according to the departmentaldose- optimization program which includes automated exposure control, adjustmentof the mA and/or kV according to patient size and/or useof iterativereconstruction techniques.Findings:The lung bases are clear. No [...] size and density. There are no pancreaticcalcifications ormasses. There is no pancreatic ductal dilatation.The adrenal glands are normal in size bilaterally.There are no adrenal masses bilaterally.The right kidney is normal in size and shape.There are several1-2 mm calculi within the right renal collecting [...] uterus has been removed.No inguinal masses.There is no skeletal lesion.IMPRESSION:1. Bilateral nonobstructive nephrolithiasis.2. No acute inflammatory change in the abdomen orpelvis.3. Postoperative change involving the stomach.4. Postoperative change consisting of cholecystectomy and hysterectomy.5. No other significant findings.This final report was electronically signed by Dr Farzad Dewitt MD 05/31/202012:20 PMDictated By: FARZAD DEWITT.Date: 05/31/2020 12:20LIPASE 2020-05-31 11:48:00 Test Item Value Reference Range Interpretation Comments Lipase (test code = LIPA) 116 U/L 73-393 STAT LAB URINALYSIS WITHOUT [id number] 10:59:00 Test Item Value Reference Range Interpretation Comments Color (test code = UCOLR) Light yellow Lt. Yellow A Clarity (test code = UCLAR) Clear Glucose (test code = UGLUC) Negative Negative N Bilirubin (test code = UBILI) Negative Negative N Ketones (test code = UKET) Negative Negative N Specific [place] (test code = 1.025 1.005-1.030 A USPGR) Blood (test code = UBLD) Negative Negative N PH (test code = UPH) 6.0 4.5-8.0 A Protein (test code = UPROT) Negative Negative N Urobilinogen (test code = U 0.2 >0.2 N UROB) Nitrite (test code = UNITR) Negative Negative N Leukocyte Esterase (test code = Negative Negative N ULEUK) STAT LAB CBC WITH AUTO [id number] 10:58:00 Test Item Value Reference Range Interpretation [...] 0.5 % 0.0-0.4 H STAT LAB CHEM [id number] 10:53:00 Test Item Value Reference Range Interpretation [...] L XR ABDOMEN 1 VIEW (KUB)2020-04-25 21:02:16 [facility])Name: LAUREN BETH : [id number] Sex: FPROCEDURE INFORMATION:Exam: XR Abdomen, 1 ViewExam date and time: 04/25/2020 8:34 PMAge: 34years oldClinical indication: Nausea and vomiting and other: Diarrhea; Abdominal pain;Generalized; Prior surgery; Surgery type: HysterectomyTECHNIQUE:Imaging protocol: XR of the abdomen.Views: Frontal supine view of the abdomen. 1 View.COMPARISON:CT ABDOMEN/PELVIS W/CONTRAST 10/07/2019 10:23 PMFINDINGS:Gastrointestinal tract: Unremarkable. No bowel dilation.Bones/joints: Unremarkable.IMPRESSION:No acute findings.This Final report was electronically signed by Tejas Rodriguez MD on 25 Apr 20209:02 PM CDT. Dictated By: TEJAS RODRIGUEZ.Date: 04/25/2020 21:02URINALYSIS WITH MICROSCOPIC 2020-04-25 18:57:00 Test Item Value Reference Range Interpretation Comments Color (test code = UCOLR) Yellow Lt. Yellow A Clarity (test code = UCLAR) Clear Glucose (test code = UGLUC) Negative Negative N Bilirubin (test code = UBILI) Negative Negative N Ketones (test code = UKET) Negative Negative N Specific [place] (test code = 1.020 1.005-1.030 A USPGR) [...] Seen,Trace A STAT LAB CBC WITH AUTO [id number] 18:55:00 Test Item Value Reference Range Interpretation [...] of Platel et clumping was entered by [id number] on 04/25/2020 18:5 5 STAT LAB CHEM [id number] 18:17:00 Test Item Value Reference Range Interpretation [...] CREA) 0.4 mg/dl 0.6-1.3 L CULTURE, ANAEROBE [id number] 15:20:00FIRST DRAW = 1 aerobic and 1 anerobic CultureSpecimen: BloodCollected: 03/20/2020 18:30 Status: Final Last Updated: 03/26/2020 15:19 (1) FIRST DRAW = 1 aerobic and 1 anerobic Culture CULTURE (Final) (Final) No Growth After 5 DaysCULTURE, [id number] 15:20:00FIRST DRAW = 1 aerobic and 1 anerobic CultureSpecimen: BloodCollected: 03/20/2020 18:30 Status: Final Last Updated: 03/26/2020 15:19 (1) FIRST DRAW = 1 aerobic and 1 anerobic Culture CULTURE (Final) (Final) No Growth After 5 DaysCT ABDOMEN/PELVIS W/[id number] 21:46:442 weeks s/p adhesolysis. Vomiting/pain/fever. Please do CT with PO and IV contrastProcedures: CT ABDOMEN/PELVIS W/CONTRASTExam Date: 03/20/2020 6:04 PMOrdering Physician: REHAN COTTONClinical Indication: [id number]: Abdominal painComparison: CT abdomen/pelvis, 02/25/20TECHNIQUE: Spiral multislice scanning was obtained from the lung bases throughthe bony pelvis with intravenous and oral contrast enhancement. 2-Dreconstructions were obtained according to our usual protocol.This exam was performed according to departmental dose-optimization programwhich includes automated exposure control, [...] course and caliber.Urinary bladder: No significant abnormality ofthe urinary bladder.REPRODUCTIVE:Organs: Postsurgical changes status post hysterectomy. [...] Chronic findings, as above.This final report was elec tronically signed by Dr Elmer Juárez MD03/20/2020 9:40 PMDictated By: ELMER PHAMDate: 03/20/2020 21:40HEPATIC FUNCTION PANEL (LIVER) 2020-03-20 19:24:00 Test Item Value Reference Range Interpretation [...] (test code = 0.3 mg/dl 0.0-1.1 IBIL) [id number] 19:24:00 Test Item Value Reference Range Interpretation Comments Lipase (test code = LIPA) 69 U/L 73-393 L [id number] 19:24:00 Test Item Value Reference Range Interpretation Comments Magnesium (test code = MG) 2.0 mg/dl 1.6-2.6 STAT LAB CHEM [id number] 18:43:00 Test Item Value Reference Range Interpretation [...] 0.5 mg/dl 0.6-1.3 L STAT LAB LACTIC [id number] 18:42:00 Test Item Value Reference Range Interpretation Comments LACTATE (test code = 2.50 mmol/l 0.90-1.70 R&RB sy rene hassan rn LAC) @1842 STAT LAB CBC WITH AUTO [id number] 18:41:00 Test Item Value Reference Range Interpretation [...] PLMNT MIDLINE NO PORT > 5 y/o W/[id number] 13:21:10Procedure: SP PERC PLMNT MIDLINE NO PORT > 5 y/o W/IMAGINGOrder Date: 03/15/2020 10:06 AMOrdering Provider: LIZBETH RUBIOERClinical Indication: Vascular accessTechnique:The patient was placed supine onthe exam table with the left arm abducted. Anultrasound was performed to locate a proper venous access site. The upper armwas prepped and draped in the usual sterile fashion. Utilizing 1% lidocainesolution, the skin and subcutaneous tissues overlying the basilic vein wereanesthetized. The vein is patent. Then, under ultrasound guidance, the vein waspunctured with a micropuncture needle and a 0.018 guidewire was advanced intothe selected vessel. The needle was removed and the 20 gauge Powerglidecatheter was advanced over the wire into the left axillary vein. The wire wasremoved. The catheter was secured to the skin in the usual fashion.Coil Maker images were recorded and stored in the [...] f or BD MAX System, the Bio Inotrem Covid-19, and t yuan Cepheid Covid-1 9 is for in vitro us e under FDA Emergency U se Authorization o nly. Indeterminate r esults recommend recol lection of specimen. XR ABD SERIES W/PA [id number] 17:33:07Procedure: XR ABD SERIES W/PA CXROrder Date: 03/13/2020 4:25 PMOrdering Provider: DR ELIUD Stovallinical Indication: R10.0: ACUTE ABDOMENComparison: NoneFindings:Lungs are clear. Heart size is within normal limits.Abdomen views show non-obstructive bowel gas pattern. No pneumoperitoneum.Moderate volume stool burden.Surgical clips in the right upper quadrant of the abdomen.Impression:No acute pulmonary process.Nonobstructive bowel gas pattern.This final report was electronically signed by Dr Silver Benitez MD 03/13/20205:26 PMDictated By: GLORY BENITEZKDate: 03/13/2020 17:26STAT LAB CBC WITH AUTO [id number] 17:23:00 Test Item Value Reference Range Interpretation [...] entered by [id number] on 03/13/2020 17:23 [id number] 17:23:00 Test Item Value Reference Range Interpretation [...] = 0.4 mg/dl 0.0-1.1 IBIL) URINALYSIS WITH [id number] 16:54:00 Test Item Value Reference Range Interpretation Comments Color (test code = UCOLR) Yellow Lt. Yellow A Clarity (test code = UCLAR) Clear Glucose (test code = UGLUC) Negative Negative N Bilirubin (test code = UBILI) Negative Negative N Ketones (test code = UKET) Negative Negative N Specific [place] (test code = >=1.030 1.005-1.030 A USPGR) [...] 4+ None Seen,Trace A STAT LAB CHEM [id number] 16:37:00 Test Item Value Reference Range Interpretation [...] PLMNT MIDLINE NO PORT > 5 y/o [id number] 12:23:44Procedure: SP PERC PLMNT MIDLINE NO PORT > 5 y/o W/IMAGINGOrder Date: 03/02/2020 11:03 AMOrdering Provider: LAURA Lucasinical Indication: Vascular accessTechnique:The patient was [...] with amicropuncture needle and a 0.018 guidewire was advanced into the selectedvessel. The needle was removed and the 20 gauge Powerglide catheter wasadvanced over the wire into the left axillary vein. The wire was removed. Thecatheter was secured to the skin inthe usual fashion. The patient toleratedthe procedure well and there were no immediate complications.Images were permanently stored on a PACS storage system and also to document thepatency of the vessel.Impression:1. Successful upper extremity vascular access.This final report was electronically signed by Dr Silver Benitez MD 03/02/202012:17 PMDictated By: Chante BENITEZ: 03/02/2020 12:17CORONAVIRUS 2019 (IN HOUSE) 2020-03-01 18:48:00 Test Item Value Reference Range Interpretation Comments FT (test code Negative Negative N The BioGX SARS -CoV-2 = COVID) (qualifier value) Reagents f or BD MAX System, the Bio Fire Covid-19, and t he Cepheid Covid-1 9 is for in vitro us e under FDA Emergency U se Authorization o nly. Indeterminate r esults recommend recol lection of specimen. PT AND [id number] 11:51:00 Test Item Value Reference Range Interpretation Comments Protime (test code 9.8 seconds 9.5-12.1 = PT) INR (test code = 0.9 0.9-1.1 INR results are intended INR) ONLY to monitor Oral Anticoagulant t herapy in stablized patie nts. The INR Therapeutic Range is 2.0 - 3.0 Patie nts with a mechanical he art, the INR Range is 2. 5 - 3.5 [id number] 11:51:00 Test Item Value Reference Range Interpretation [...] AKS PRESENT ON THE RBC HISTOGRAM. IN T HIS CASE, A MANUAL REVIEW OF THE SLIDE WI LL BE PERFORMED, AND RBC MORPHOLOGY WILL BE NOTED ON THE RE PORT. CULTURE, [id number] 08:08:00Specimen: Urine RandomCollected: 02/25/2020 11:27 Status: Final Last Updated: 02/27/2020 08:08 CULTURE (Final) (Final) No Growth After 48 [id number] 05:38:00 Test Item Value Reference Range Interpretation [...] 0.5-1.3 code = CREA) EGFR if >60 Cymro (test code mL/min/1.73m\\ = EGFRAA) S\\2 EGFR if Non- >60 Estimate d Glomerular Cymro (test code mL/min/1.73m\\ Filtrat ion Rate (eGFR) = EGFRNA) S\\2 Reference Inter vals Decision Points for 18 years and older and average body ma ss: >= 60 Does not exc lude kidney disease. 30 - 59 Suggests mod erate chronic kidney disease and indicates t he need for further investigation including asses sment of proteinuria and cardiovascular factors. < 30 U sually indicates a nee d for referral for assessment and management of c hronic kidney failure. TSH (Ultra Sensitive)2020-02-26 05:38:00 Test Item Value Reference Range Interpretation Comments TSH (test code = TSH) 0.04 mIU/L 0.35-3.74 L CBC WITH AUTO [id number] 05:18:00 Test Item Value Reference Range Interpretation [...] AKS PRESENT ON THE RBC HISTOGRAM. IN T HIS CASE, A MANUAL REVIEW OF THE SLIDE [...] recommend recol lection of specimen. URINALYSIS WITH [id number] 12:56:00 Test Item Value Reference Range Interpretation Comments Color (test code = UCOLR) Yellow Lt. Yellow A Clarity (test code = UCLAR) Slightly Cloudy Glucose (test code = UGLUC) Negative Negative N Bilirubin (test code = UBILI) Negative Negative N Ketones (test code = UKET) Negative Negative N Specific [place] (test code = >=1.030 1.005-1.030 A USPGR) [...] code = UBACT) Trace None Seen,Trace N [id number] 12:52:00 Test Item Value Reference Range Interpretation [...] = 0.3 mg/dl 0.0-1.1 IBIL) CT ABDOMEN/PELVIS W/[id number] 12:42:41NPO 4 hours. Do not withhold meds Procedure: CT ABDOMEN/PELVIS W/CONTRASTOrder date: 02/25/2020 11:26 AMOrdering Provider: LIZBETH LOPEZlinical Indication: Nausea and vomiting with abdominal pain.Comparison: October 07, 2019Technique: Multiple axial helical CT images of the [...] areunremarkable.Status post cholecystectomy. The solid abdominal viscera are unremarkable.Status post gastric sleeve procedure. Otherwise, the stomach, small, and largebowel are within normal limits.No peritoneal or retroperitoneal masses or adenopathy. No free fluid orpneumoperito neum.Status post appendectomy.Urinary bladder is unremarkable. No pelvic masses or adenopathy seen. Perirectalfat planes are preserved.Osseous structures of the abdomen and pelvis are nonacute.Impression:Unremarkable CT of the abdomen and pelvis with IV contrast.This final report was electronically signed by Dr Wiley Velázquez MD 02/25/202012:36 PMDictated By: WILEY VELÁZQUEZDate: 02/25/2020 12:36 STAT LAB CHEM [id number] 12:07:00 Test Item Value Reference Range Interpretation [...] 0.6-1.3 L STAT LAB CBC WITH AUTO [id number] 12:05:00 Test Item Value Reference Range Interpretation [...] % 0.0-0.4 STAT LAB CBC WITH AUTO [id number] 03:15:00 Test Item Value Reference Range Interpretation [...] 0.6 % 0.0-0.4 H STAT LAB CHEM [id number] 02:55:00 Test Item Value Reference Range Interpretation [...] JORGE LUIS WHITEDate: 02/25/2020 02:45STAT LAB , [id number] 01:12:00 Test Item Value Reference Range Interpretation Comments (Urine) (test code = Negative PREGU) STAT LAB URINALYSIS WITHOUT [id number] 01:11:00 Test Item Value Reference Range Interpretation Comments Color (test code = UCOLR) Yellow Lt. Yellow A Clarity (test code = UCLAR) Clear Glucose (test code = UGLUC) Negative Negative N Bilirubin (test code = UBILI) Negative Negative N Ketones (test code = UKET) Negative Negative N Specific [place] (test code = USPGR) >=1.030 1.005-1.030 A [...] By: JORGE LUIS WHITEDate: 02/10/2020 05:31URINALYSIS WITH [id number] 05:10:00 Test Item Value Reference Range Interpretation Comments Color (test code = UCOLR) Yellow Lt. Yellow A Clarity (test code = UCLAR) Clear Glucose (test code = UGLUC) >=1000 Negative A Bilirubin (test code = UBILI) Negative Negative N Ketones (test code = UKET) Negative Negative N Specific [place] (test code = 1.015 1.005-1.030 A USPGR) [...] = UBACT) None Seen None Seen,Trace N [id number] 04:42:00 Test Item Value Reference Range Interpretation [...] 0.2 mg/dl 0.0-1.1 IBIL) STAT LAB CHEM [id number] 04:27:00 Test Item Value Reference Range Interpretation [...] CREA) 0.6 mg/dl 0.6-1.3 STAT LAB , [id number] 04:24:00 Test Item Value Reference Range Interpretation Comments (Urine) (test code = Negative PREGU) STAT LAB CBC WITH AUTO [id number] 04:22:00 Test Item Value Reference Range Interpretation [...] % 0.0-0.[address] L SPINE W/O [id number] 12:46:24Procedure: CT L SPINE W/O CONTRASTOrder date: 01/25/2020 11:46 AMOrdering Provider: DONALD Healyinical Indication: [id number]: Low back painComparison: NoneTechnique: Using a multislice scanner, sequential axial imaging was obtained ofthe lumbar spine. 2D sagittal and coronal reconstructed images wereobtained.This exam was performed according to the our departmental dose-optimizationprogram which includes automated exposure control, adjustment of the mA and/orkV according to patient size and/or useof iterative reconstruction techniques.Findings:There is no acute fracture.Sagittal and coronal alignment is normal.Vertebral body heights and intervertebral disc spaces are normal.There is no osseous spinal canal nor neural foraminal narrowing.There is no lytic or sclerotic lesion.There is no paraspinal hematoma.The prevertebral soft tissues are normal.IMPRESSION1. Negative CT scan of the lumbar spine.This final report was electronically signed by Dr Wiley Velázquez MD 01/25/202012:39 PMDictated By: WILEY VELÁZQUEZDate: 01/25/2020 12:39HEPATIC FUNCTION PANEL (LIVER)2019-12-09 [...] code = 0.3 mg/dl 0.0-1.1 IBIL) ER [id number] 05:49:00 Test Item Value Reference Range Interpretation Comments Lipase (test code = LIPA) 105 U/L 73-393 ER 7STAT LAB CHEM [id number] 05:06:00 Test Item Value Reference Range Interpretation [...] L ER 7STAT LAB CBC WITH AUTO [id number] 05:04:00 Test Item Value Reference Range Interpretation [...] code = IG%) 0.4 % 0.0-0.4 ER [id number] 02:23:00 Test Item Value Reference Range Interpretation [...] , each yielding differ ent values. This co rrected result was base d on the formula: Co rrected Calcium = Serum Calcium + [0.8 * ( 4 - SerumAlbumin)] EGFR if >60 Cymro (test code mL/min/1.73m\\ = EGFRAA) S\\2 EGFR if Non- >60 Estimate d Glomerular Cymro (test code mL/min/1.73m\\ Filtrat ion Rate (eGFR) = EGFRNA) S\\2 Reference Inter vals Decision Points for 18 years and older and average body ma ss: >= 60 Does not exc lude kidney disease. 30 - 59 Suggests mod erate chronic kidney disease and indicates t he need for further investigation including asses sment of proteinuria and cardiovascular factors. < 30 U sually indicates a nee d for referral for assessment and management of c hronic kidney failure. URINALYSIS WITH [id number] 02:11:00 Test Item Value Reference Range Interpretation Comments Color (test code = UCOLR) Yellow Lt. Yellow A Clarity (test code = UCLAR) Clear Glucose (test code = UGLUC) Negative Negative N Bilirubin (test code = UBILI) Negative Negative N Ketones (test code = UKET) Trace Negative A Specific [place] (test code = USPGR) >=1.030 1.005-1.030 A [...] Seen,Trace A STAT LAB CBC WITH AUTO [id number] 02:03:00 Test Item Value Reference Range Interpretation [...] = IG%) 0.4 % 0.0-0.4 CT ABDOMEN/PELVIS [id number] 22:43:00NPO 4 hours. Do not withhold meds [...] 201910:42 PM CDT.Dictated By: JOSUÉ MCGHEEDate: 10/07/2019 22:[id number] 22:05:00 Test Item Value Reference Range Interpretation [...] 0.5-1.3 code = CREA) EGFR if >60 Cymro (test code mL/min/1.73m\\ = EGFRAA) S\\2 EGFR if Non- >60 Estimate d Glomerular Cymro (test code mL/min/1.73m\\ Filtrat ion Rate (eGFR) = EGFRNA) S\\2 Reference Inter vals Decision Points for 18 years and older and average body ma ss: >= 60 Does not exc lude kidney disease. 30 - 59 Suggests mod erate chronic kidney disease and indicates t he need for further investigation including asses sment of proteinuria and cardiovascular factors. < 30 U sually indicates a nee d for referral for assessment and management of c hronic kidney failure. AMYLASE, [id number] 22:05:00 Test Item Value Reference Range Interpretation Comments Amylase (test code = AMYL) 43 U/L 25-115 [id number] 22:05:00 Test Item Value Reference Range Interpretation Comments Lipase (test code = LIPA) 95 U/L 73-393 URINALYSIS WITH [id number] 21:49:00 Test Item Value Reference Range Interpretation Comments Color (test code = UCOLR) Yellow Lt. Yellow A Clarity (test code = UCLAR) Clear Glucose (test code = UGLUC) Negative Negative N Bilirubin (test code = UBILI) Negative Negative N Ketones (test code = UKET) 15 Negative A Specific [place] (test code = USPGR) >=1.030 1.005-1.030 A [...] Seen,Trace A STAT LAB CBC WITH AUTO [id number] 21:45:00 Test Item Value Reference Range Interpretation [...] IG%) 0.4 % 0.0-0.4 STAT LAB , [id number] 21:36:00 Test Item Value Reference Range Interpretation Comments (Urine) (test code = Negative PREGU) CT ABDOMEN/PELVIS W/O [id number] 03:56:36PROCEDURE INFORMATION:Exam: CT Abdomen And Pelvis Without [...] 3:56 AM CDT.Dictated By: AMY ORDOÑEZDate: 09/20/2019 03:[id number] 02:07:00 Test Item Value Reference Range Interpretation [...] , each yielding differ ent values. This co rrected result was base d on the formula: Co rrected Calcium = Serum Calcium + [0.8 * ( 4 - SerumAlbumin)] EGFR if >60 Cymro (test code mL/min/1.73m\\ = EGFRAA) S\\2 EGFR if Non- >60 Estimate d Glomerular Cymro (test code mL/min/1.73m\\ Filtrat ion Rate (eGFR) = EGFRNA) S\\2 Reference Inter vals Decision Points for 18 years and older and average body ma ss: >= 60 Does not exc lude kidney disease. 30 - 59 Suggests mod erate chronic kidney disease and indicates t he need for further investigation including asses sment of proteinuria and cardiovascular factors. < 30 U sually indicates a nee d for referral for assessment and management of c hronic kidney failure. XR ABDOMEN 2 VIEWS FLAT / [id number] 02:01:15PROCEDURE INFORMATION:Exam: XR Abdomen, 2 ViewsExam date [...] Ordoñez MD on 2:01 AM CDT.Dictated By: Marta ORDOÑEZ: 09/20/2019 02:01URINALYSIS WITH [id number] 01:56:00 Test Item Value Reference Range Interpretation Comments Color (test code = UCOLR) Yellow Lt. Yellow A Clarity (test code = UCLAR) Clear Glucose (test code = UGLUC) >=1000 Negative A Bilirubin (test code = UBILI) Negative Negative N Ketones (test code = UKET) Trace Negative A Specific [place] (test code = USPGR) >=1.030 1.005-1.030 A [...] Seen,Trace A STAT LAB CBC WITH AUTO [id number] 01:38:00 Test Item Value Reference Range Interpretation [...] IG%) 0.5 % 0.0-0.[address] ABDOMEN/PELVIS [id number] 04:23:30PROCEDURE INFORMATION:Exam: CT Abdomen And Pelvis With [...] 20194:23 AM CDT.Dictated By: SETH MEDINADate: 08/17/2019 04:[id number] 03:34:00 Test Item Value Reference Range Interpretation Comments Lipase (test code = LIPA) 67 U/L 73-393 L [id number] 03:34:00 Test Item Value Reference Range Interpretation [...] , each yielding differ ent values. This co rrected result was base d on the formula: Co rrected Calcium = Serum Calcium + [0.8 * ( 4 - SerumAlbumin)] EGFR if >60 Cymro (test code mL/min/1.73m\\ = EGFRAA) S\\2 EGFR if Non- >60 Estimate d Glomerular Cymro (test code mL/min/1.73m\\ Filtrat ion Rate (eGFR) = EGFRNA) S\\2 Reference Inter vals Decision Points for 18 years and older and average body ma ss: >= 60 Does not exc lude kidney disease. 30 - 59 Suggests mod erate chronic kidney disease and indicates t he need for further investigation including asses sment of proteinuria and cardiovascular factors. < 30 U sually indicates a nee d for referral for assessment and management of c hronic kidney failure. STAT LAB CBC WITH AUTO [id number] 03:19:00 Test Item Value Reference Range Interpretation [...] IG%) 0.7 % 0.0-0.4 H URINALYSIS WITH [id number] 03:10:00 Test Item Value Reference Range Interpretation Comments Color (test code = UCOLR) YELLOW Clarity (test code = UCLAR) CLEAR Glucose (test code = UGLUC) NEGATIVE NEGATIVE N Bilirubin (test code = UBILI) NEGATIVE NEGATIVE N Ketones (test code = UKET) NEGATIVE NEGATIVE N Specific [place] (test code = 1.025 1.005-1.030 A USPGR) [...] 1+ None Seen,Trace A STAT LAB , [id number] 03:03:00 Test Item Value Reference Range Interpretation Comments (Urine) (test code = Negative PREGU) ONLY AVAILABLE [id number] 20:37:00 Test Item Value Reference Range Interpretation [...] code = CREA) 0.6 mg/dl 0.6-1.2 ED2 [id number] 20:28:00 Test Item Value Reference Range Interpretation [...] = MPV) 7.1 fL 8.0-11.0 A CULTURE, [id number] 08:44:76idg6Gddajoqq: Urine SpecimensCollected: 07/12/2019 15:00 Status: Final Last Updated: 2019 08:44 (1) err7 Culture Result (Final) (Final) Moderate Mixed Body Gabriela Isolated No Pathogens Isolated No Further Workup PerformedFL LIMITED [id number] 17:53:41Procedures: [place] LIMITED IVPExam Date: 07/12/2019 3:21 PMOrdering Physician: REHAN COTTONClinical Indication: [id number]: Flank painComparison: CT abdomen/pelvis, 05/17/19Findings: Frontal radiographs of the abdomen following administration andexcretion of contrast into the urinary collecting system.The urinary collecting system opacifies normally. No evident hydronephrosis.Ureters are of normal course and caliber. No evident obstruction or fillingdefect. No significant abnormality of the urinarybladder. Moderate stool burdenis demonstrated within the right colon. No acute abnormality of the oss eousstructures or remaining soft tissues.Impression: No significant abnormality of the urinary collecting system on thisexam.This final report was electronically signed by Dr Elmer Juárez MD07/12/2019 5:47 PMDictated By: ELMER PHAMDate: 07/12/2019 17:[id number] 15:56:00 Test Item Value Reference Range Interpretation Comments Lipase (test code = LIPA) 97 U/L 73-393 [id number] FUNCTION PANEL (LIVER)2019-07-12 15:56:00 Test Item Value [...] (test code = 0.2 mg/dl 0.0-1.1 IBIL) [id number] WITH [id number] 15:51:00 Test Item Value Reference Range Interpretation Comments Color (test code = UCOLR) YELLOW Clarity (test code = UCLAR) CLEAR Glucose (test code = UGLUC) NEGATIVE NEGATIVE N Bilirubin (test code = UBILI) NEGATIVE NEGATIVE N Ketones (test code = UKET) NEGATIVE NEGATIVE N Specific [place] (test code = 1.020 1.005-1.030 A USPGR) [...] code = UBACT) 4+ None Seen,Trace A [id number] LAB CHEM [id number] 15:09:00 Test Item Value Reference Range Interpretation [...] (test code = CREA) 0.6 mg/dl 0.6-1.3 [id number] LAB CBC WITH AUTO [id number] 15:08:00 Test Item Value Reference Range Interpretation [...] = IG%) 0.4 % 0.0-0.[address] ABDOMEN/PELVIS [id number] 16:33:46NPO 4 hours. Do not withhold medsProcedures: CT ABDOMEN/PELVIS W/CONTRASTExam Date: 05/17/2019 1:31 PMOrdering Physician: MERLE LYNNEClinical Indication: [id number]: Abdominal painComparison: CT abdomen/pelvis, 04/09/19TECHNIQUE: Spiral multislice scanning was obtained from the lung bases throughthe bony pelvis with intravenous contras t only. 2-D reconstructions wereobtained according to our usual protocol.This exam was performed according to the our departmental dose-optimizationprogram which includes automated exposure control, adjustment of the mA and/orkV according to patient size and/or use of iterative reconstruction technique s.Findings:THORAX:Lung bases: No significant abnormality of the lung [...] large stool burden within the colon may representconstipation.Appendix: The appendix is not clearly demonstrated on this exam.Small bowel: Normal.Stomach: Postsurgical change status post gastric reduction.Mesentery: Normal.RETROPERITONEUM:Aorta: Normal.Lymphadenopathy: No retroperitoneal lymphadenopathy.Masses: None.OSSEOUS: Degenerative changes of the spine; otherwise, no significant osseo uslesions.OTHER: No significant abnormality of the remaining soft tissuesIMPRESSION:1. Moderate to large stool burden in the colon may represent constipation;otherwise, no significant abnormalities were present to explain the patient'sabdominal pain complaint.2. Chronic findings, as above.This final re port was electronically signed by Dr Elmer Juárez MD05/17/2019 4:27 PMDictated By: ELMER PHAMDate: 05/17/2019 16:[id number] 16:20:00 Test Item Value Reference Range Interpretation Comments Lipase (test code = LIPA) 70 U/L 73-393 L STAT LAB CHEM [id number] 15:24:00 Test Item Value Reference Range Interpretation [...] 0.5 mg/dl 0.6-1.3 L STAT LAB LACTIC [id number] 15:23:00 Test Item Value Reference Range Interpretation Comments LACTATE (test code = LAC) 1.39 mmol/l 0.90-1.70 STAT LAB CBC WITH AUTO [id number] 15:21:00 Test Item Value Reference Range Interpretation [...] IG%) 0.5 % 0.0-0.4 H URINALYSIS WITH [id number] 15:08:00 Test Item Value Reference Range Interpretation Comments Color (test code = UCOLR) YELLOW Clarity (test code = UCLAR) CLEAR Glucose (test code = UGLUC) NEGATIVE NEGATIVE N Bilirubin (test code = UBILI) NEGATIVE NEGATIVE N Ketones (test code = UKET) NEGATIVE NEGATIVE N Specific [place] (test code = 1.025 1.005-1.030 A USPGR) [...] None Seen,Trace A CT ANGIO HEAD W/WO [id number] 16:28:5720 g Cathlon Above the Antecubital or higher requiredProcedure: CT ANGIO HEAD W/WO CONTRASTOrder Date: 05/12/2019 3:30 PMOrdering Provider: REHAN Farrellinical Indication: [id number]: HeadacheComparison: NoneTechnique: Using a helical scanner, sequential axial imaging of the brain wasobtained before and after the administration of the contrast medium. At anindependent workstation, 3-D reconstructions of the makah of [place] wereobtained.This examwas performed according to the departmental dose-optimization programwhich includes automated exposure control, adjustment of the mA and/or kVaccording to patient size and/or use of iterative reconstruc tion techniques.Findings:The supraclinoid internal carotid artery segments have a normal appearancebilaterally.The anterior and middle cerebral arteries are patent without stenosis.The distal vertebralarteries and basilar artery have a normal appearance.The [...] electronically signed by Dr Farzad Dewitt MD 05/12/20194:22 PMDictated By: FARZAD DEWITTDate: 05/12/2019 16:22 CT ABDOMEN/PELVIS [id number] 14:36:05NPO 4 hours. Do not withhold meds Procedure: CT ABDOMEN/PELVIS W/CONTRASTOrder Date: 04/09/2019 8:00 AMOrdering Provider: LIZBETH RUBIOERClinical Indication: R09.89: OTHER SPECIFIED SYMPTOMS AND SIGNS INVOLVING THECIRCULATORY AND RESPIRATORY SYSTEMSComparison: April 04, 2019TECHNIQUE:The abdomen and pelvis were scanned utilizing a multidetector [...] basilar subsegmental atelectasis.HEPATOBILIARY: Diffuse hepatic steatosis is present. Thegallbladder issurgically absent.SPLEEN: No splenomegaly.PANCREAS: No focal masses or ductal dilatation.ADRENALS: No adrenal nodules.KIDNEYS/URETERS: 1 mm nonobstructing stone in the interpolar region of the rightkidney. The kidneys are otherwise unremarkable.PELVIC ORGANS/BLADDER: Bladder is unremarkable.PERITONEUM / RETROPERITONEUM: Small volume free fluid is present in the pelvis.Uterus is surgically absent.LYMPH NODES: No lymphadenopathy.VESSELS: Unremarkable.GI TRACT: No distention or wall thicke vania. Postoperative changes of previousgastric sleeve type surgery.BONES AND SOFT TISSUES: There is a small fat-containing umbilical hernia. Thehernia neck measures 16 mm. Inflammatory changes are seenabout the hernia.IMPRESSION:No acute process in the abdomen or pelvis.Small fat-containing umbilicalhernia with adjacent inflammation stable sinceprevious exam. This may be from recent surgical intervention. Correlate withsurgical history. No discrete fluid collection.Small volume free fluid in the pelvis.Previous hysterectomy and cholecystectomy.Punctate nonobstructing right renal calculus.Diffuse hepatic steatosis.This final report was electronically signed by Dr Silver Benitez MD 04/09/20192:29 PMDictated By: GLORY BENITEZKDate: 04/09/2019 14:29CB WITH AUTO [id number] 09:02:00 Test Item Value Reference Range Interpretation [...] AKS PRESENT ON THE RBC HISTOGRAM. IN T HIS CASE, A MANUAL REVIEW OF THE SLIDE [...] % 0.0-0.4 H IG%) CBC WITH AUTO [id number] 09:14:00 Test Item Value Reference Range Interpretation [...] AKS PRESENT ON THE RBC HISTOGRAM. IN T HIS CASE, A MANUAL REVIEW OF THE SLIDE [...] (test code = 0.4 % 0.0-0.4 IG%) [id number] 09:12:00 Test Item Value Reference Range Interpretation [...] 0.5-1.3 code = CREA) EGFR if >60 Cymro (test code mL/min/1.73m\\ = EGFRAA) S\\2 EGFR if Non- >60 Estimate d Glomerular Cymro (test code mL/min/1.73m\\ Filtrat ion Rate (eGFR) = EGFRNA) S\\2 Reference Inter vals Decision Points for 18 years and older and average body ma ss: >= 60 Does not exc lude kidney disease. 30 - 59 Suggests mo derate chronic kidney disease and indicates t he need for further investigation including asses sment of proteinuria and cardiovascular factors. < 30 U sually indicates a nee d for referral for assessment and management of c hronic kidney failure. SP PERC PLMNT MIDLINE NO PORT > 5 y/o W/[id number] 16:11:23Procedure: SP PERC PLMNT MIDLINE NO PORT > 5 y/o W/IMAGINGOrder Date: 04/07/2019 3:23 PMOrdering Provider: LIZBETH LOPEZlinical Indication: Vascular accessTechnique:The patient [...] permanent medicalrecord. The needle was removed and the 20 gaugePowerglide catheter was advancedover the wire into the left axillary vein. The wire was removed. The catheterwas secured to the skin in the usual fashion. The patient tolerated theprocedure well and there were no immediate complications.Impression:1. Successful upper extremity vascular access.This final report was electronically signed by Dr Wiley Velázquez MD 04/07/20194:05 PMDictated By: WILEY VELÁZQUEZDate: 04/07/2019 16:05CT ABDOMEN/PELVIS W/[id number] 22:50:40PROCEDURE INFORMATION:Exam: CT Abdomen and pelvis with contrastExam [...] 10:50 PM CDT.Dictated By: ELMER PHAMDate: 04/04/2019 22:[id number] 21:22:00 Test Item Value Reference Range Interpretation [...] 0.3 mg/dl 0.0-1.1 IBIL) STAT LAB CHEM [id number] 21:07:00 Test Item Value Reference Range Interpretation [...] 0.6 mg/dl 0.6-1.3 STAT LAB URINALYSIS WITHOUT [id number] 21:05:00 Test Item Value Reference Range Interpretation Comments Color (test code = UCOLR) Yellow Lt. Yellow A Clarity (test code = UCLAR) Slightly Cloudy Glucose (test code = UGLUC) 100 Negative A Bilirubin (test code = UBILI) Negative Negative N Ketones (test code = UKET) Negative Negative N Specific [place] (test code = >=1.030 1.005-1.030 A USPGR) Blood (test code = UBLD) Negative Negative N PH (test code = UPH) 5.5 4.5-8.0 A Protein (test code = UPROT) Negative Negative N Urobilinogen (test code = U 0.2 >0.2 N UROB) Nitrite (test code = UNITR) Negative Negative N Leukocyte Esterase (test code Negative Negative N = ULEUK) STAT LAB CBC WITH AUTO [id number] 21:04:00 Test Item Value Reference Range Interpretation [...] 0.5 % 0.0-0.4 H STAT LAB , [id number] 21:04:00 Test Item Value Reference Range Interpretation Comments (Urine) (test code = Negative PREGU) ONLY AVAILABLE [id number] 16:05:00 Test Item Value Reference Range Interpretation Comments Sodium (test code = CANCELED mmol/l The r eleased value NA) 141 was cancele d by [id number] on 04/04/2019 16:0 5 Potassium (test code CANCELED mmol/l The released value = K) 3.9 was cancele d by [id number] on 04/04/2019 16:0 5 CO2 (test code = CANCELED mmol/l The rele ased value CO2) 23 was canceled by [id number] on 04/04/2019 16:0 5 Chloride (test code CANCELED mmol/l The r eleased value = CL) 108 was cancele d by [id number] on 04/04/2019 16:0 5 Glucose (test code = CANCELED mg/dl The r eleased value GLU) 96 was canceled by [id number] on 04/04/2019 16:0 5 Calcium (test code = CANCELED mg/dl The r eleased value CALC) 8.8 was cancele d by [id number] on 04/04/2019 16:0 5 BUN (test code = CANCELED mg/dl The relea sed value BUN) 11 was canceled by [id number] on 04/04/2019 16:0 5 Creatinine (test CANCELED mg/dl code = CREA) HISTOLOGY [id number] 11:08:00 [address] [place], [place] [address]Tbdzc: [phone] JXVR #: [id number] Photo Technician: Seth Valdez M.D.Surgical Pathology Consultation ReportPatient Name: LAUREN BETH Case #: [id number] Med. Rec. #:[id number] [id number] Surgery Date: 03/21/2019 : 1985(Age:33) Received: 03/23/2019 Gender: F Copy to : Reported:03/23/2019 Physician(s): Lizbeth Wolfe Specimen(s) ReceivedA: Right ovary Final Pathologic DiagnosisRight ovary and fallopian tube, right salpingo-oophorectomy:- fibrovascular adhesions of ovary and fallopian tube. - numerous follicular cysts, benign serous cysts, and corpusalbicanswithin ovarian parenchyma. Electronically Signed Out /03/23/2019 Seth Valdez MD, Board Certified in Anatomic Pathology ClinicalHistoryRight ovarian cyst.Gross DescriptionThe specimen is labeled right ovary. Two pieces of lr-pin k tissuemeasuring7.5 x 5 by up to 3.3 cm are received. On one of the pieces of tissuethereappears jett a fallopian tube measuring 3.2 cm in length with adiameter upto 0.5 cm. Adhesions are seen along the serosal surface of the otherpiecesof tissue. Serial sectioning reveals a solid and cystic cut surf acewith thecyst varying in size from 1 up to 2 cm in greatest dimension. The cystsarefilled with clear serous fluid. Coil Maker sections of the ovaryandpossible fallopian tube are submitted in cassettes A1-A8. /03/23/2019 Seth Valdez MD, Board Certified in Anatomic Pathology Microscopic Descript ionMicroscopic examination of the right ovary reveals fibrovascularadhesionsalong the surface of theovary as well as along the accompanyingfallopiantube. The ovarian parenchyma contains follicular cysts, benign serouscyst,as well as numerous corpus albicans. No areas of endometriosis areseen. BillingFee Code(s): A; 47594- US TRANSVAGINAL W/[id number] 16:45:00 Patient Name: LAUREN BTEH Unit No: [id number] EXAMS: CPT CODE: [id number] US TRANSVAGINAL W/PELVIS 48097 CLINICAL HISTORY: Right lower quadrant pain. Status post appendectomy. History of ovarian cyst. Real-time ultrasound examination of the pelvis was performed using transabdominal and endovaginal approach. Uterus and left ovary have been surgically removed. Right ovary is enlarged and measures8.4 x 5.4 x 7.2 cm. It contains [...] cyst as described above. Blood flow is identifiedin the right ovary. at 1645 Reported andsigned by: Mario Guidry MD CC: Hilaria Calderón MD Technologist: Dipesh Miranda RDMS, T Probe:[id number] Trnscrbd D/ (6815) Ro Orig Print D/T: S: 03/10/2019 (5306) [facility]: LA[facility]EN [facility] Radiology Department PHYS: SUE.Hilaria Diaz [address] : 1985 AGE: 33 SEX: F [place], [place] [address] LOC: ALONDRA PHONE #: [phone] EXAM DATE: 03/10/2019 STATUS: DEP ER FAX #: [phone] RAD NO: [id number] Page 1 Signed Report Patient Name: LAUREN BETH Unit No: [id number] EXAMS: CPT CODE: [id number] US TRANSVAGINAL W/PELVIS 56078 <Continued> [facility] NAME: LAUREN BETH Radiology Department PHYS: BEBEAL. - Hilaria Calderón [address] : 1985 AGE: 33 SEX: F [place], [place] [address] LOC: DayanaraERS PHONE #: [phone] EXAM DATE: 03/10/2019 STATUS: DEP ER FAX#: [phone] RAD NO: [id number] Page 2 Signed Report- US TRANSVAGINAL W/PELVIS 2019-03-10 16:45:00 Patient Name: ADELIA BETH Unit No: [id number] EXAMS: CPT CODE: [id number] US TRANSVAGINAL W/PELVIS 31077 CLINICAL HISTORY: Right lower quadrant pain. Status post appendectomy. History of ovarian cyst. Real-time ultrasound examination of the pelvis was performed using transabdominal and endovaginal approach. Uterus and left ovary have been surgically removed. Right ovary is enlarged and measures 8.4 x5.4 x 7.2 cm. It contains a hemorrhagic cyst measuring 4.6 x 3.7 x 3.9 cm and a simple cyst measuring 5.1 x 4.6 x 4.4 cm. Additional smaller cyst is also present in the right ovary. Blood flow is identi fied in the wall of the cyst. There is no extraovarian adnexal mass or significant free fluid in thepelvis. IMPRESSION: 1. Status post hysterectomy and left oophorectomy. 2. Enlargement of the right ovary with hemorrhagic cyst as well as simple cyst as described above. Blood flow is identified in theright ovary. at 1644 Reported and signedby: Mario Guidry MD CC: Hilaria Calderón MD Technologist: Dipesh Miranda RDMS, T Probe: [id number] Trnscrbd D/ (0955) Ro Orig Print D/T: S: 03/10/2019 (3455) [facility] [place] [facility] NAME: ADELIA BETH Radiology Department PHYS: BEBEAL.Hilaria Diaz [address] : 1985 AGE: 33 SEX: F [place], [place] [address] LOC: DayanaraERS PHONE #: [phone] EXAM DATE: 03/10/2019 STATUS: REG ER FAX #: [phone] RAD NO: Page 1 Signed Report Patient Name: ADELIA BETH Unit No: [id number] EXAMS: CPT CODE: [id number] US TRANSVAGINAL W/PELVIS 17247 <Contin ued> [facility] NAME: ADELIA BETH Radiology Department PHYS: Hilaria Maldonado [address] : 1985 AGE: 33 SEX: F [place] [address] LOC: ALONDRA PHONE #: [phone] EXAM DATE: 03/10/2019 STATUS: REG ER FAX #: [phone] RAD NO: Page 2 Signed Report - US PELVIS [id number] 16:45:00 Patient Name: LAUREN BETH Unit No: [id number] EXAMS: CPT CODE: [id number] US PELVIS COMPLETE 32797 CLINICAL HISTORY: Right lower quadrant pain. Status post appendectomy. History of ovarian cyst. Real-time ultrasound examination of the pelvis was performed using transabdominal and endovaginal approach. Uterus and left ovary have been surgically removed. Right ovary is enlarged and measures 8.4 x5.4 x 7.2 cm. It contains a hemorrhagic cyst measuring 4.6 x 3.7 x 3.9 cm and a simple cyst measuring 5.1 x 4.6 x 4.4 cm. Additional smaller cyst is also present in the right ovary. Blood flow is identified in the wall of the cyst. There is no extraovarian adnexal mass or significant free fluid in thepelvis. IMPRESSION: 1. Status post hysterectomy and left oophorectomy. 2. Enlargement of the right ov jack with hemorrhagic cyst as well as simple cyst as described above. Blood flow is identified in theright ovary. at 1645 Reported and signedby: Mario Guidry MD CC: Hilaria Calderón MD Technologist: Dipesh Miranda RDMS, RVT Probe: Trnscrbd D/ (1395) [id number] Orig Print D/T: S: 03/10/2019 (5578) [facility] NAME: LAUREN BETH Radiology Department PHYS: GUTAL. - CalderónSarabjitHilaria [address] : 1985 AGE: 33 SEX: F [place] [address] LOC: DayanaraERS PHONE #: [phone] EXAM DATE: 03/10/2019 STATUS: DEP ER FAX #: [phone] RAD NO: [id number] Page 1 Signed Report Patient Name: LAUREN BETH Unit No: [id number] EXAMS: CPT CODE: [id number] US PELVIS COMPLETE 45045 <Continued> [facility] NAME: LAUREN BETH Radiology Department PHYS: GUTAL.- Amy Calderóna [address] : 1985 AGE: 33 SEX: F [place] [address] LOC: DayanaraERS PHONE #: [phone] EXAM DATE: 03/10/2019 STATUS: [facility] ER FAX #: [phone] RAD NO: [id number] Page 2 Signed Report- US PELVIS [id number] 16:45:00 Patient Name: ADELIA BETH Unit No: [id number] EXAMS: CPT CODE: [id number] US PELVIS COMPLETE 65339 CLINICAL HISTORY: Right lower quadrant pain. Status post appendectomy. History of ovarian cyst. Real-time ultrasound examination of the pelvis was performed using transabdominal and endovaginal approach.Uterus and left ovary have been surgically removed. Right ovary is enlarged and measures 8.4 x 5.4 x7.2 cm. It contains a hemorrhagic cyst measuring [...] Dipesh Miranda RDMS, RVT Probe: Trnscrbd D/ (0255) t.SDR.YOS Orig Print D/T: S: 03/10/2019 (7183) [facility] [place] [facility] NAME: ADELIA BETH Radiology Department PHYS: Hilaria Maldonado [address] : 1985 AGE: 33 SEX: F [place] [address] [address] [address] [facility] PHONE #: [phone] EXAM DATE: 03/10/2019 STATUS: REG ER FAX #: [phone] RAD NO: Page 1 Signed Report Patient Name: ADELIA BETH Unit No: [id number] EXAMS: CPT CODE: [id number] US PELVIS COMPLETE 11865 <Continued> [facility] NAME: AEDLIA BETH Radiology Department PHYS: Hilaria Maldonado [address] : 1985 AGE: 33 SEX: F [place] [address] LOC: DayanaraERS PHONE #: [phone] EXAM DATE: 03/10/2019 STATUS: REG ER FAX #: [phone] RAD NO: Page 2 Signed ReportCB W/AUTO [id number] 16:18:00 Test Item Value Reference Range Interpretation [...] = PLTMR) UA RFLX MICR CULT IF [id number] 16:07:00 Test Item Value Reference Range Interpretation [...] A Indication for culture: Suprapubic PainUR HCG [id number] 16:07:00 Test Item Value Reference Range Interpretation [...] culture: Suprapubic PainUA RFLX MICR CULT IF [id number] 16:04:00 Test Item Value Reference Range Interpretation [...] EPIU) Indication for culture: Suprapubic PainUR HCG [id number] 16:04:00 Test Item Value Reference Range Interpretation [...] culture: Suprapubic PainUA RFLX MICR CULT IF [id number] 15:55:00 Test Item Value Reference Range Interpretation [...] RARE-FEW Indication for culture: Suprapubic PainUR HCG [id number] 15:55:00 Test Item Value Reference Range Interpretation [...] and tested. Indication for culture: Suprapubic PainED2 [id number] 01:18:00 Test Item Value Reference Range Interpretation [...] MPV) 6.9 fL 8.0-11.0 A ED2 URINE [id number] 00:55:00 Test Item Value Reference Range Interpretation Comments Color (test code = UCOLR) Yellow Lt. Yellow A Clarity (test code = UCLAR) Clear Glucose (test code = UGLUC) NEGATIVE NEGATIVE N Bilirubin (test code = UBILI) NEGATIVE NEGATIVE N Ketones (test code = UKET) NEGATIVE NEGATIVE N Specific [place] (test code = USPGR) 1.030 1.005-1.030 A Blood (test code = UBLD) NEGATIVE NEGATIVE N PH (test code = UPH) 6.0 4.5-8.0 A Protein (test code = UPROT) Trace NEGATIVE A Urobilinogen (test code = U UROB) 0.2 >0.2 N Nitrite (test code = UNITR) NEGATIVE NEGATIVE N Leukocyte Esterase (test code = NEGATIVE NEGATIVE N ULEUK) ED2 , [id number] 00:54:00 Test Item Value Reference Range Interpretation Comments (Urine) (test code = Negative PREGU) [id number] 13:07:00 Test Item Value Reference Range Interpretation Comments Lipase (test code = LIPA) 106 U/L 73-[address] ABDOMEN/PELVIS [id number] 12:24:12Procedures: ED2 CT ABDOMEN/PELVIS W/CONTRASTExam Date: 02/07/2019 10:11 AMOrdering Physician: WYATT Downsinical Indication: [id number]: Epigastric painComparison: CT abdomen/pelvis, 01/27/19TECHNIQUE: Spiral multislice scanning was obtained from the lung bases throughthe bony pelvis with intravenous contrast only. 2-D reconstructions wereobtained according to our usual protocol.This exam was performedaccording to the our departmental dose-optimizationprogram which includes automated exposure control, adjustment of the mA and/orkV according to patient size and/or use of iterative reconstruction techn iques.Findings:THORAX:Lung bases: No significant abnormality of the lung bases.Heart: No significantabnormality of the visualized cardiac or mediastinalstructures.UPPER ABDOMEN:Liver: [...] well-circumscribed hypoattenuating 8 x 7 x 6 cmmass ispresent within the right adnexa with a prominent septation. This likelyrepresents a large right ovarian cyst. No significant abnormality of the leftadnexa.Free fluid: None.Incidental pelvic phleboliths are noted.GASTROINTESTINAL:Large bowel: No significant abnormality.Appendix: The appendix is not clearly identified on this exam; however, nopericecal inflammatory stranding or free fluid is demo nstrated.Small bowel: Normal.Stomach: Postsurgical change status post gastric reduction.Mesentery: Normal.RETROPERITONEUM:Aorta: Atherosclerotic calcific plaque of the aorta without aneurysmaldilatation. No significant retroperitoneal masses or lymphadenopathy.Lymphadenopathy: No retroperitoneal lympha denopathy.Masses: None.OSSEOUS: No significant CT abnormality of the osseous structures.OTHER: No significant abnormality of the remaining soft tissuesIMPRESSION:1. No acute abnormalities are clearly demonstrated to explain the etiology ofthe patient's epigastric pain.2. Right adnexal 8 cm predominantly hypoattenuating circumscribed mass likelyrepresents an ovarian cyst; however, further evaluation with transabdominal andendovaginal pelvic sonography is recommended.3. Nonobstructive punctate right renal nephrolith.4. Postsurgical change status post gastric reduction, cholecystectomy andhysterectomy.This final report was electronically signed by Dr Elmer Juárez MD02/07/2019 12:17 PMDictated By: ELMER PHAMDate: 02/07/2019 12:17ED2 [id number] 10:48:00 Test Item Value Reference Range Interpretation [...] = TP) 7.6 gm/dl 6.4-8.1 ED2 URINE [id number] 10:45:00 Test Item Value Reference Range Interpretation Comments Color (test code = UCOLR) Yellow Lt. Yellow A Clarity (test code = UCLAR) Sl Cloudy Glucose (test code = UGLUC) NEGATIVE NEGATIVE N Bilirubin (test code = UBILI) NEGATIVE NEGATIVE N Ketones (test code = UKET) NEGATIVE NEGATIVE N Specific [place] (test code = 1.025 1.005-1.030 A USPGR) Blood (test code = UBLD) NEGATIVE NEGATIVE N PH (test code = UPH) 5.5 4.5-8.0 A Protein (test code = UPROT) NEGATIVE NEGATIVE N Urobilinogen (test code = U UROB) 0.2 >0.2 N Nitrite (test code = UNITR) NEGATIVE NEGATIVE N Leukocyte Esterase (test code = NEGATIVE NEGATIVE N ULEUK) ED2 , [id number] 10:45:00 Test Item Value Reference Range Interpretation Comments (Urine) (test code = Negative PREGU) ED2 [id number] 10:44:00 Test Item Value Reference Range Interpretation [...] MPV) 6.8 fL 8.0-11.[address] ABDOMEN/PELVIS [id number] 12:29:19s/p hysterectomy; rlq pain Procedure: CT ABDOMEN/PELVIS W/CONTRASTOrder Date: 01/27/2019 10:57 AMOrdering Provider: DR LEXUS CASTREJON ACOSTAClinical Indication: [id number]: Abdominal painComparison: September 30, 2018TECHNIQUE:The abdomen and pelvis were scanned utilizing a multidetector helical scannerfrom the diaphragm to the lesser trochanter . Low osmolar IV contrast wasgiven. Coronal and sagittal reformations were obtained.Thisexam was performed according to the our departmental dose- optimizationprogram which includes automated exposure control, adjustment of the mA and/orkV according to patient size and/or use of iterative reconstruction techniques.DISCUSSION:LOWER THORAX: Normal.HEPATOBILIARY: Mild diffuse hepatic steatosis is present. The gallbladder issurgically absent.SPLEEN: No splenomegaly.PANCREAS: No focal masses or ductal dilatation.ADRENALS: No adrenal nodules.KIDNEYS/URETERS: No hydronephrosis, stones, or solid mass lesions.PELVIC ORGANS/BLADDER: Uterus is surgically absent. Bilobed appearing ovariancyst measu ring maximally up to 5 cm in the right adnexal region is present andis stable. Previous ultrasound from 08/09/2018 demonstrate the presence of 2separate simple cysts. No discrete fluid collection is seenin the hysterectomybed.PERITONEUM / RETROPERITONEUM: No free air or fluid.LYMPH NODES: No lymphadenopathy.VESSELS: Unremarkable.GI TRACT: No distention or wall thickening.BONES AND SOFT TISSUES: No acute abnormality. Interval improvement in previouslyseen inflammatory changes in the right abdominal wall subcutaneous fat. No fluidcollection.IMPRESSION:Stable appearance of simple cysts in the right ovar y.Postoperative changes of a hysterectomy without a discrete fluid collection.Stable postoperative changes of previous gastric sleeve and cholecystectomy.Millimetric calculi in bilateral kidneys are better appreciated on the recentlyperformed noncontrast CT exam. No hydronephrosis.This final report was electronically signed by Dr Silver Benitez MD 01/27/201912:23 PMDictated By: GLORY BENITEZKDate: 01/27/2019 12:23URINALYSIS WITH MICROSCOPIC 2019-01-27 12:10:00 Test Item Value Reference Range Interpretation Comments Color (test code = UCOLR) YELLOW Clarity (test code = UCLAR) CLEAR Glucose (test code = UGLUC) NEGATIVE NEGATIVE N Bilirubin (test code = UBILI) NEGATIVE NEGATIVE N Ketones (test code = UKET) NEGATIVE NEGATIVE N Specific [place] (test code = USPGR) <=1.005 1.005-1.030 A [...] code = UBACT) Trace None Seen,Trace N [id number] 11:49:00 Test Item Value Reference Range Interpretation Comments Lipase (test code = LIPA) 91 U/L 73-393 AMYLASE, [id number] 11:49:00 Test Item Value Reference Range Interpretation Comments Amylase (test code = AMYL) 45 U/L 25-115 STAT LAB CHEM [id number] 11:25:00 Test Item Value Reference Range Interpretation [...] 0.6-1.3 L STAT LAB CBC WITH AUTO [id number] 11:23:00 Test Item Value Reference Range Interpretation [...] IG%) 0.6 % 0.0-0.4 H US PELVIS [id number] 07:55:25h/o complex right ovarian cystsProcedure: Pelvic ultrasound.CLINICAL INDICATION: Right lower quadrant pain. Status post hysterectomyOrder Date: 12/07/2018 2:07 AMCOMPARISON: CT abdomen and pelvis September 30, 2018 as well as pelvic ultrasoundMay 13, 2018TECHNIQUE: Transabdominal sonography was performed with color flow Doppler. Notransvaginal examination performed.FINDINGS:That is post hysterectomy. Status post left oophorectomy.No rmal arterial flow to the right ovary without evidence of variant origin.Ovarian volume of 107 mL's.This was seen complex cyst is no longer present.However, there are 2 simple appearing cysts, one measuring 3.6 cm and a secondmeasuring 2.8 cm.There is no free fluid.IMPRESSION:1. Resolution of complexcyst seen on prior examination with 2 simple cystswithin the right ovary. Otherwise, no focal abnormality.This final report was electronically signed by Dr Wiley Velázquez MD 12/07/20187:49 AMDictated By:WILEY VELÁZQUEZDate: 12/07/2018 07:49LIPASE 2018-12-07 03:11:00 Test Item Value Reference Range Interpretation [...] 0.1 mg/dl 0.0-1.1 IBIL) STAT LAB CHEM [id number] 02:41:00 Test Item Value Reference Range Interpretation [...] 0.6-1.3 L STAT LAB CBC WITH AUTO [id number] 02:39:00 Test Item Value Reference Range Interpretation [...] IG%) 0.5 % 0.0-0.4 H URINALYSIS WITH [id number] 02:37:00 Test Item Value Reference Range Interpretation Comments Color (test code = UCOLR) YELLOW Clarity (test code = UCLAR) CLEAR Glucose (test code = UGLUC) 500 NEGATIVE A Bilirubin (test code = UBILI) NEGATIVE NEGATIVE N Ketones (test code = UKET) TRACE NEGATIVE A Specific [place] (test code = USPGR) >=1.030 1.005-1.030 A [...] = UBACT) 2+ None Seen,Trace A CULTURE, [id number] 07:39:00CULTURE RIGHT ABDOMEN WOUND CARE DEPT Specimen: AbdomenCollected: 10/15/2018 15:48 Status: Final Last Updated: 10/17/2018 01:39 (1) CULTURE RIGHT ABDOMEN WOUND CARE DEPT Culture Result (Final) (Final) Few Staphylococcus aureus Isolate (Final) (Final) Staphylococcus aureus Ciprofloxacin <=0.5 S Clindamycin 0.25 S Daptomycin 0.25 S Erythr omycin 0.5 S Gentamicin <=0.5 S Levofloxacin <=0.12 S Linezolid 4 S Moxifloxacin <=0.25 S Oxacillin 0.5 S Rifampicin <=0.5 S Tetracycline <=1 S Tigecycline <=0.12 S Trimeth/Sulfa <=10 S Vancomycin 1 S Cefoxitin Sc (+/-) Negative - ICR (+/-) Negative -XR CHEST AP/PA 1 VIEW 2018-10-01 05:15:17Procedure: XR CHEST AP/PA 1 VIEWOrder Date: 09/30/2018 8:28 PMOrdering Provider: DIMAS Haskinsinical Indication: [id number]: Acute chest painComparison: May 13, 2017Findings:Cardiac size is magnified by technique.Pulmonary vasculature is normal.Mediastinal contour is normal.Aortic contour is normal.There is no consolidation or effusion.There is no evidence of active tuberculosis.There is no mass or pneumothorax.There is no skeletal abnormality.Impression: Negative AP portable chest x-ray.This final report was electronically signed by Dr Farzad Dewitt MD 10/01/20185:08 AMDictated By: FARZAD DEWITTDate: 10/01/2018 05:08CT ABDOMEN/PELVIS W/O [id number] 00:42:26NPO 4 hours. Do not withhold medsEXAM:CT [...] The heart size is normal. Mild elevation ofthe rightdiaphragm.ABDOMEN:Liver: Unremarkable.Gallbladder and bile ducts: Post cholecystectomy. [...] a nonspecific nonobstructive bowel gas pattern.There are postsurgical changes of a gastric sleeve. There are air and fluid inthe lumen of nondistended segments of the small bowel in a nonspecific pattern.There is a floppy cecum located in the right mid abdomen.Appendix: The appendix is not seen. There are no demonstrable pericecalinflammatory changes.PELVIS:Bladder: Unremark able.Reproductive: Post hysterectomy. There are 2 right ovarian cysts measuringapproximately 3.5 cm and 2.7 cm, similar to 07/31/2016, incompletely assessedon this examination.ABDOMEN and PELVIS:Intraperitoneal space: No free air. No significant fluid collection.Bones/joints: Mild degenerative changesof the spine. No acute osseousfindings.Soft tissues: There is a stable small umbilical hernia containing fat. Thereis a stable small supraumbilical anterior abdominal wall hernia containing fatjust to the right of midline, the hernia sac measuring a maximal diameter ofapproximately 2 cm (image 50 series 2). There are several surgical clips in theanterior subcutaneous fat of the right abdomen. In thislocation there is anapproximately 4 x 2 cm focus of fluid attenuation with adjacent patchyopacities and segmental skin thickening concerning for inflammation/cellulitis(e.g. image 37 series 2). Evaluation for an abscess is limited due to lack ofintravenous contrast.Vasculature: No abdominal aortic aneu rysm. Calcified pelvic phleboliths.Lymph nodes: No enlarged lymph nodes.Other: Please note that lackof intravenous contrast limits evaluation of thevasculature and organs.IMPRESSION:1. There are several surgical clips in the anterior subcutaneous fat of theright abdomen. In this location there is a 4cm focus of fluid attenuation withadjacent patchy opacities and segmental skin thickening concerningforinflammation/cellulitis. Evaluation for an abscess is limited due to lack ofintravenous contrast.2. Status post gastric sleeve, cholecystectomy and hysterectomy.3. Subcentimeter calculus in each kidney. No hydronephrosis.4. Nonspecific nonobstructive bowel gas pattern.5. The appendix is not seen. There are no demonstrable pericecal inflammatorychanges.6. Right ovarian cysts are incompletely assessed on this examination, butsimilar to the abdomen/pelvis CT performed 07/31/2016.This Final report was electronically signed by Rehan Azar MD on 01 Oct 201812:42 AM CDT.Dictated By: Hay AZAR: 10/01/2018 00:42LIPASE 2018-09-30 21:37:00 Test Item Value Reference Range Interpretation [...] 0.5 mg/dl 0.0-1.1 IBIL) STAT LAB CHEM [id number] 21:10:00 Test Item Value Reference Range Interpretation [...] 0.6-1.3 L STAT LAB CBC WITH AUTO [id number] 21:09:00 Test Item Value Reference Range Interpretation [...] = IG%) 0.3 % 0.0-0.4 OVARY W/WO TUBE,[id number] 12:44:00 RUN DATE: 09/04/18 [facility] PAGE 1 RUN TIME: 1454 Specimen Inquiry RUN USER: INTERFACE -PATIENT: LAUREN BETH Zoltan LOC: KOURTNEY #: [id number] AGE/SX: 33/F ROOM: 2606 RE09/02/18REG DR:Elmer Flores : 87 BED: A DIS: 09/03/18 STATUS: DIS [place]y TLOC: SPEC #: [id number] RECD: 09/02/18 STATUS: KWAME REQ #: [id number] MELISSA: 09/02/18- SUBM DR: Elmer Flores III ENTERED: 09/03/18 SP TYPE: OVARNOTNEO PIERCE DR: ORDERED: LEVEL IV CODES: U70765 - OVARY, NOS PROCEDURES: LEVEL IV (Incomplete) TISSUES: OVARY, NOS - RIGHT OVARIAN CYST CLINICAL HISTORY 33 year old, acute pelvic pain (wpd) FINAL DIAGNOSIS Right ovarian cyst, excision: - benign simple cyst of ovary Tissue code 1 CPT code(s): 02702 [facility] 09/04/18 GROSS DESCRIPTION ANATOMIC SOURCE OF TISSUE (per Requisition): Right ovarian cyst The specimen is received in a formalin-filled container, labeled with the patient's name and designated [...] with multiple yellow-orange, centrally hemorrhagic corpora lutea. Coil Maker sections are submitted as A and B. telma/wpd 09/03/18 @ 1343 Signed Amaris Wharton MD 09/04/18 1244 END OF REPORT CBC W/AUTO [id number] 03:10:00 Test Item Value Reference Range Interpretation [...] NORMAL NORMAL code = PLTMR) CHEMISTRY 7 [id number] 14:15:00 Test Item Value Reference Range Interpretation [...] CA) 9.2 mg/dL 8.4-10.2 N CBC W/AUTO [id number] 13:42:00 Test Item Value Reference Range Interpretation [...] NORMAL NORMAL code = PLTMR) US INTRAVAGINAL [id number] 12:35:09Procedure: Pelvic ultrasound.CLINICAL INDICATION: Pelvic pain. Status post hysterectomy.Order Date: 09/01/2018 11:41 AMCOMPARISON: 05/13/2018 and December 24, 2017TECHNIQUE: Transabdominal and endovaginal sonography was performedFINDINGS:Status post hysterectomy.Interval enlargement of the right adnexal/ovarian complex mass with both simplecystic and complex cystic components. Overall lesion measures 10.0 x 7.5 cm.There is increased vascularity seen along the internal septations. Complex areademonstrates subtle interval enlargement now measuring 4.3 x 3.8 cm. Findingsare concerning for an ovarian complexneoplasm, both benign and malignantetiologies could have this appearance.Status post left oophorectomy. There is no free fluid.IMPRESSION:Interval enlargement of complex right adnexal/ovarian mass lesion. Differentialconsiderations include both benign and malignant etiologies such as serouscystadenomas or mucinous cystadenomas as well as carcinomas. Gynecologicconsultation is recommended.This final report was electronically signed by Dr Wiley Velázquez MD 09/01/201812:28 PMDictated By: WILEY VELÁZQUEZDate: 09/01/2018 12:28STAT LAB CBC WITH AUTO [id number] 11:31:00 Test Item Value Reference Range Interpretation [...] 09/01/2018 11:31 ONLY AVAILABLE 8A-12MNCT ABDOMEN/PELVIS W/O [id number] 11:11:01MLP C Procedure: CT ABDOMEN/PELVIS W/O CONTRASTOrder Date: 09/01/2018 9:28 AMOrdering Provider: CHIN Guilleninical Indication: [id number]: Abdominal pain. Left lower quadrant painComparison: 12/24/2017TECHNIQUE:CT [...] DETECTION OF FOCALLESIONS AND VASCULAR PATHOLOGY.LOWER THORAX: No rmal.HEPATOBILIARY: The gallbladder is surgically absent. No focal [...] are present.BONES AND SOFT TISSUES: No acute abnormality.IMPRESSION:No obstructive urolithiasis in the bilateral renal collecting systems. There ishowevermild bilateral hydroureteronephrosis likely from borderline distendedbladder.Nonobstructing stones in bilateral kidneys.Multiloculated appearance of the right ovary. Largest cystic component measuresupto 7 cm. Previously, in May 2018, this cystic component measured up to 5cm. Consider gynecologic consultation if not already performed as this findingmay predispose to adnexal torsion.Previous hysterectomy.This final report was electronically signed by Dr Silver Benitez MD 09/01/201811:04 AMDictatedBy: GLORY BENITEZKDate: 09/01/2018 11:04STAT LAB CHEM [id number] 10:26:00 Test Item Value Reference Range Interpretation [...] L ONLY AVAILABLE 8A-12MNSTAT LAB URINALYSIS WITHOUT [id number] 09:59:00 Test Item Value Reference Range Interpretation Comments Color (test code = UCOLR) Yellow Lt. Yellow A Clarity (test code = UCLAR) Clear Glucose (test code = UGLUC) NEGATIVE Negative A Bilirubin (test code = UBILI) NEGATIVE Negative A Ketones (test code = UKET) NEGATIVE Negative A Specific [place] (test code = USPGR) 1.015 1.005-1.030 A Blood (test code = UBLD) NEGATIVE Negative A PH (test code = UPH) 7.0 4.5-8.0 A Protein (test code = UPROT) NEGATIVE Negative A Urobilinogen (test code = U UROB) 0.2 >0.2 N Nitrite (test code = UNITR) NEGATIVE Negative A Leukocyte Esterase (test code = NEGATIVE Negative A ULEUK) ONLY AVAILABLE 8A-12MNUS INTRAVAGINAL [id number] 13:26:23Procedure: Pelvic ultrasound.CLINICAL INDICATION: PELVIC PAIN: Pain-Pelvic. Last menstrual period wasunknown. Partial hysterectomy.Order Date: 05/13/2018 11:44 AMCOMPARISON: December 26, 2017TECHNIQUE: Transabdominal and endovaginal sonography was performedFINDINGS:Status post partial hysterectomy.The right ovary is normal in size and echogenicity. No evidence of ovariantorsion. Multiple right-sided ovari an cysts are noted, largest of whichmeasuring 5.8 cm. Overall findings are stable. No new nodular components orconcerning soft tissue mass.Status post left oophorectomy. There is no free fluid.IMPRESSION:1. Stable appearing multiloculated right ovary with large appearing simplecysts. No new concerning nodular component or solid mass.2. Status post hysterectomy and left oophorectomy.This final report was electronically signed by Dr Wiley Velázquez MD 11/13/67916:20 PMDictated By: WILEY VELÁZQUEZDate: 05/13/2018 13:20STAT LAB CBC WITH AUTO [id number] 12:22:00 Test Item Value Reference Range Interpretation [...] AKS PRESENT ON THE RBC HISTOGRAM. IN T HIS CASE, A MANUAL REVIEW OF THE SLIDE [...] 0.0-0.4 IG%) STAT LAB CBC WITH AUTO [id number] 11:54:00 Test Item Value Reference Range Interpretation [...] AKS PRESENT ON THE RBC HISTOGRAM. IN T HIS CASE, A MANUAL REVIEW OF THE SLIDE [...] 0.5 % 0.0-0.4 H IG%) ONLY AVAILABLE 8A-12MNSTAT LAB URINALYSIS WITHOUT [id number] 11:25:00 Test Item Value Reference Range Interpretation Comments Color (test code = UCOLR) Yellow Lt. Yellow A Clarity (test code = UCLAR) Clear Glucose (test code = UGLUC) NEGATIVE Negative A Bilirubin (test code = UBILI) NEGATIVE Negative A Ketones (test code = UKET) NEGATIVE Negative A Specific [place] (test code = USPGR) 1.020 1.005-1.030 A Blood (test code = UBLD) NEGATIVE Negative A PH (test code = UPH) 7.0 4.5-8.0 A Protein (test code = UPROT) NEGATIVE Negative A Urobilinogen (test code = U UROB) 0.2 >0.2 N Nitrite (test code = UNITR) NEGATIVE Negative A Leukocyte Esterase (test code = NEGATIVE Negative A ULEUK) ONLY AVAILABLE 8A-12MNSTAT LAB , [id number] 11:25:00 Test Item Value Reference Range Interpretation Comments (Urine) (test code = Negative PREGU) ONLY AVAILABLE [facility]12TNSTAT LAB CHEM [id number] 11:23:00 Test Item Value Reference Range Interpretation [...] mg/dl 0.6-1.3 L ONLY AVAILABLE 8A-12MNUS INTRAVAGINAL [id number] 12:50:53Procedure: Pelvic ultrasound.CLINICAL INDICATION: Right adnexal mass. [...] as well as slightly complex cysts. Recommend 2-3 month followup to ensureresolution and/or stability.This final report was electronically signed by Bisi Velázquez MD 12/24/201712:44 PMDictated By: WILEY VELÁZQUEZDate: 12/24/2017 12:50URINALYSIS WITH [id number] 10:22:00 Test Item Value Reference Range Interpretation Comments Color (test code = UCOLR) Yellow Clarity (test code = UCLAR) Clear Glucose (test code = UGLUC) NEGATIVE NEGATIVE N Bilirubin (test code = UBILI) NEGATIVE NEGATIVE N Ketones (test code = UKET) NEGATIVE NEGATIVE N Specific [place] (test code = USPGR) 1.025 1.005-1.030 A [...] = UBACT) Trace None Seen,Trace N LIPASE, [id number] 10:05:00 Test Item Value Reference Range Interpretation Comments Lipase (test code = LIPA) 40 U/L 8-223 [id number] 10:05:00 Test Item Value Reference Range Interpretation [...] , each yielding differ ent values. This co rrected result was base d on the formula: Co rrected Calcium = Serum Calcium + [0.8 * ( 4 - SerumAlbumin)] EGFR if >60 Cymro (test code mL/min/1.73m\\ = EGFRAA) S\\2 EGFR if Non- >60 Estimate d Glomerular Cymro (test code mL/min/1.73m\\ Filtrat ion Rate (eGFR) = EGFRNA) S\\2 Reference Inter vals Decision Points for 18 years and older and average body ma ss: >= 60 Does not ex clude kidney disease. 30 - 59 Suggests mod erate chronic kidney disease and indicates t he need for further investigation including asses sment of proteinuria and cardiovascular factors. < 30 U sually indicates a nee d for referral for assessment and management of c hronic kidney failure. CT ABD/ PELVIS W/O CON (RENAL STONE)2017-12-24 09:38:31Procedure: CT ABD/ PELVIS W/O CON (RENAL STONE)Order date: 12/24/2017 8:36 AMOrdering Provider: QUINTIN PERRYTClinical Indication: ABD PAIN: Pain- Abdominalbilateral flank pain worse left, also LLQ painComparison: CT abdomen and pelvis June 21, 2017 and multiple prior exams.TECHNIQUE: Using a helical scanner, sequential axial imaging of the abdomen andpelvis was obtained without the administration of i ntravenous or oral contrast.The exam was obtained from [...] masses.There is no hydronephrosis.The left kidney is normalin size and shape.Solitary 2 mm calculus in the lower pole nonobstructive. There are no masses.Thereis no hydronephrosis.The urinary bladder has a normal [...] By: WILEY VELÁZQUEZDate: 12/24/2017 09:38CB WITH AUTO [id number] 09:26:00 Test Item Value Reference Range Interpretation [...] AKS PRESENT ON THE RBC HISTOGRAM. IN T HIS CASE, A MANUAL REVIEW OF THE SLIDE [...] and pelvis withoutintravenous contrast. All CT scans at this facility use one or more dosereduction techniques, viz.: automated exposure control; ma/kV adjustment perpatient size (including targeted exams where dose is matched to indication;i.e. head); or iterative reconstruction technique.COMPARISON:CT ABDOMEN/PELVIS W/CONTRAST 2016-07-31 14:25FINDINGS:Lower thorax: No acute findings.ABDOMEN:Liver: Hepatic steatosis.Gallbladder and bile ducts: Status postcholecystectomy. No ductal dilation.Pancreas: Unremarkable. No ductal dilation.Spleen: Unremarkable.No splenomegaly.Adrenals: Unremarkable. No mass.Kidneys and ureters: 3 mm calculus in the right UVJ without righthydroureter nephrosis.Stomach and bowel: Status post gastric sleeve procedure. No obstruction.No mucosal thickening.Appendix: No findings to suggest acute appendicitis.PELVIS:Bladder: Unremarkable. No stones.Reproductive: Status post hysterectomy.ABDOMEN and PELVIS:Intraperitoneal space: Unremarkable. No free air. No significant fluidcollection.Bones/joints: No acute fracture. No dislocation.Soft tissues: Unremarkable.Vasculature: Unremarkable. No abdominal aortic aneurysm.Lymph nodes: Unremarkable. No enlarged lymph nodes.IMPRESSION:3 mm calculus in the right UVJ without right hydroureter nephrosis.This Final report was electronically signed by Marvin Dobbs MD on 3:19 AM CDT.Dictated By: MARVIN DOBBSDate: 06/21/2017 03:20URINALYSIS WITH MICROSCOPIC 2017-06-21 03:20:00 Test Item Value Reference Range Interpretation Comments Color (test code = UCOLR) YELLOW Clarity (test code = UCLAR) CLEAR Glucose (test code = UGLUC) NEGATIVE NEGATIVE N Bilirubin (test code = UBILI) NEGATIVE NEGATIVE N Ketones (test code = UKET) NEGATIVE NEGATIVE N Specific [place] (test code = 1.020 1.005-1.030 A USPGR) [...] UBACT) None Seen None Seen,Trace N er [id number] 03:07:00 Test Item Value Reference Range Interpretation [...] , each yielding differ ent values. This co rrected result was base d on the formula: Co rrected Calcium = Serum Calcium + [0.8 * ( 4 - SerumAlbumin)] EGFR if >60 Cymro (test code mL/min/1.73m\\ = EGFRAA) S\\2 EGFR if Non- >60 Estimate d Glomerular Cymro (test code mL/min/1.73m\\ Filtrat ion Rate (eGFR) = EGFRNA) S\\2 Reference Inter vals Decision Points for 18 years and older and average body ma ss: >= 60 Does not exc lude kidney disease. 30 - 59 Suggests mod erate chronic kidney disease and indicates t he need for further investigation including asses sment of proteinuria and cardiovascular factors. < 30 U sually indicates a nee d for referral for assessment and management of c hronic kidney failure. er 16LIPASE, [id number] 03:07:00 Test Item Value Reference Range Interpretation Comments Lipase (test code = LIPA) 61 U/L 8-223 er 16CBC WITH AUTO [id number] 03:05:00 Test Item Value Reference Range Interpretation [...] AKS PRESENT ON THE RBC HISTOGRAM. IN T HIS CASE, A MANUAL REVIEW OF THE SLIDE [...] 0.0-0.4 IG%) er 16XR CHEST 2 PA [id number] 19:56:04Procedure: XR CHEST 2 PA LATERALExam date: 05/13/2017 3:53 PMOrdering Provider: DR ASA BLOOMClinical Indication: fatigue, Chest painComparison: March 15, 2016Findings:Cardiomediastinal silhouette is within normal limits.The lungs are clear.No pleural effusion or pneumothorax. Osseous structures are nonacute.No evidence of active tuberculosis.Impression:No acute cardiopulmonary process.This final report was electronically signed by Dr Wiley Velázquez MD 05/13/20177:49 PMDictated By: WILEY VELÁZQUEZDate: 05/13/2017 19:[id number] 16:53:00 Test Item Value Reference Range Interpretation [...] , each yielding differ ent values. This co rrected result was base d on the formula: Co rrected Calcium = Serum Calcium + [0.8 * ( 4 - SerumAlbumin)] EGFR if >60 Cymro (test code mL/min/1.73m\\ = EGFRAA) S\\2 EGFR if Non- >60 Estimate d Glomerular Cymro (test code mL/min/1.73m\\ Filtrat ion Rate (eGFR) = EGFRNA) S\\2 Reference Inter vals Decision Points for 18 years and older and average body ma ss: >= 60 Does not exc lude kidney disease. 30 - 59 Suggests mod erate chronic kidney disease and indicates t he need for further investigation including asses sment of proteinuria and cardiovascular factors. < 30 U sually indicates a nee d for referral for assessment and management of c hronic [...] AKS PRESENT ON THE RBC HISTOGRAM. IN T HIS CASE, A MANUAL REVIEW OF THE SLIDE WI LL BE PERFORMED, AND RBC MORPHOLOGY WILL BE NOTED ON THE RE PORT. URINALYSIS WITH [id number] 18:25:00 Test Item Value Reference Range Interpretation Comments Color (test code = UCOLR) YELLOW Clarity (test code = UCLAR) CLEAR Glucose (test code = UGLUC) NEGATIVE NEGATIVE N Bilirubin (test code = UBILI) NEGATIVE NEGATIVE N Ketones (test code = UKET) NEGATIVE NEGATIVE N Specific [place] (test code = 1.025 1.005-1.030 A USPGR) [...] (test code = 0.1 mg/dl 0.0-1.1 IBIL) [id number] 18:21:00 Test Item Value Reference Range Interpretation [...] mg/dl 8.4-10.2 = CALC) EGFR if >60 Cymro (test code mL/min/1.73m\\ = EGFRAA) S\\2 EGFR if Non- >60 Estimate d Glomerular Cymro (test code mL/min/1.73m\\ Filtrat ion Rate (eGFR) = EGFRNA) S\\2 Reference Inter vals Decision Points for 18 years and older and average body ma ss: >= 60 Does not exc lude kidney disease. 30 - 59 Suggests mod erate chronic kidney disease and indicates t he need for further investigation including asses sment of proteinuria and cardiovascular factors. < 30 U sually indicates a nee d for referral for assessment and management of c hronic kidney failure. CBC WITH AUTO [id number] 18:04:00 Test Item Value Reference Range Interpretation [...]
[2022-02-07] MEDS ORDERED: PROMETHAZINE INJ 25 MG/ML AMP ONE ×2 (00:45→01:23)
[2022-02-07] MEDS ORDERED: MORPHINE 4 MG/ML SYR ONE (00:46)
[2022-02-07] MEDS ORDERED: NA CHLORIDE 0.9% 1,000 ML ONE (00:46)
[2022-02-07 00:59] LABS: Absolute Lymphocytes (CBC) 2.8 K/uL (0.7-4.9); Hematocrit 38.1 % (36.0-45.0); Lymphocytes % 43.2 % (15.3-44.8); MCV 85.3 fL (80-100); RBC Red Blood Cell Count 4.46 M/uL (3.86-4.86)
[2022-02-07] MEDS ORDERED: MEPERIDINE HCL 50 MG/ML ONE (01:23)
[2022-02-07 01:42] LABS: Albumin 3.2 g/dL (3.4-5.0); Bilirubin Total 0.2 mg/dL (0.2-1.0); Protein, Total 6.9 g/dL (6.4-8.2)
[2022-02-07 01:43] LABS: Potassium 3.3 mmol/L (3.5-5.1)
--- NOTE | 2022-02-07 01:43 | ER ---
Nurse's Notes [facility] Name: Hong Pace Age: 36 yrs Sex: Female : 1985 Arrival Date: 02/07/2022 Time: 00:03 Bed 4 Private MD: Diagnosis: Abdominal pain, unspecified Presentation: 02/07 00:10 Chief complaint: Patient states: she woke up with sudden onset of right upper quad pain bb then started vomiting the pain is constant and stabbing. Coronavirus screen: At this time, the client does not indicate any symptoms associated with coronavirus-19. Ebola Screen: No symptoms or risks identified at this time. Initial Sepsis Screen: Does the patient meet any 2 criteria? No. Patient's initial sepsis screen is negative. Does the patient have a suspected source of infection? No. Patient's initial sepsis screen is negative. Risk Assessment: Do you want to hurt yourself or someone else? Patient reports no desire to harm self or others. Onset of symptoms was February 07, 2022. 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 - Social history:: Smoking status: Patient reports the use of cigarette tobacco products. - Family history:: not pertinent. - Hospitalizations: : No recent hospitalization is reported. Screenin:04 Abuse screen: Denies threats or abuse. Nutritional screening: No deficits noted. jb4 Tuberculosis screening: No symptoms or risk factors identified. Fall Risk None identified. Assessment: 00:15 General: Appears in no apparent distress. uncomfortable, Behavior is calm, cooperative, jb4 appropriate for age. Pain: Complains of pain in abdomen Pain does not radiate. Pain currently is 10 out of 10 on a pain scale. Neuro: Level of Consciousness is awake, alert, obeys commands, Oriented to person, place, time, situation. Cardiovascular: Patient's skin is warm and dry. Respiratory: Airway is patent Respiratory effort is even, unlabored, Respiratory pattern is regular, symmetrical. GI: Abdomen is non-distended, obese, Bowel sounds present X 4 quads. Abd is soft and non tender X 4 quads. Derm: Skin is intact, Skin is pink, warm \T\ dry. Musculoskeletal: Circulation, motion, and sensation intact. Range of motion: intact in all extremities. 01:08 Reassessment: Patient appears in no apparent distress at this time. Patient and/or jb4 family updated on plan of care and expected duration. Pain level reassessed. Patient is alert, oriented x 3, equal unlabored respirations, skin warm/dry/pink. 02:13 Reassessment: Patient appears in no apparent distress at this time. Patient and/or jb4 family updated on plan of care and expected duration. Pain level reassessed. Patient is alert, oriented x 3, equal unlabored respirations, skin warm/dry/pink. Patient denies pain at this time. Patient states feeling better. Vital Signs: 00:00 BP 151 / 102; Pulse 146; Resp 20; Temp 98.4(O); Pulse Ox 94% on R/A; jb4 00:10 Weight 104.33 kg (R); Height 5 ft. 4 in. (162.56 cm) (R); Pain 9/10; bb 01:07 BP 118 / 81; Pulse 106; Resp 17; Pulse Ox 98% on R/A; jb4 02:13 BP 142 / 84; Pulse 92; Resp 16; Pulse Ox 97% on R/A; jb4 00:10 Body Mass Index 39.48 (104.33 kg, 162.56 cm) bb ED Course: 00:03 Patient arrived in ED. bp1 00:04 Darwin Haque MD is Attending Physician. rn 00:04 Patient has correct armband on for positive identification. Bed in low position. Call jb4 light in reach. Side rails up X 1. Client placed on continuous cardiac and pulse oximetry monitoring. NIBP monitoring applied. shelter monitor on. 00:13 Triage completed. bb 00:13 Arm band placed on Patient placed in an exam room, on a stretcher, on pulse oximetry. bb 00:33 Amanuel Harvey, RN is Primary Nurse. jb4 01:06 CT Stone Protocol In Process Unspecified. EDMS 02:15 No provider procedures requiring assistance completed. IV discontinued, intact, jb4 bleeding controlled, No redness/swelling at site. Pressure dressing applied. Administered Medications: 00:49 Drug: NS 0.9% 1000 ml Route: IV; Rate: 1 bolus; Site: left forearm; jb4 02:14 Follow up: Response: No adverse reaction; IV Status: Completed infusion jb4 00:49 Drug: Phenergan (promethazine) 12.5 mg Route: IVP; Site: left forearm; jb4 01:10 Follow up: Response: No adverse reaction; Marked relief of symptoms jb4 00:49 Drug: morphine 4 mg Route: IVP; Infused Over: 4 mins; Site: left forearm; jb4 01:10 Follow up: Response: No adverse reaction; No change in condition jb4 01:23 Drug: Demerol (meperidine) 50 mg Route: IVP; Site: left forearm; jb4 02:14 Follow up: Response: No adverse reaction; Marked relief of symptoms jb4 01:23 Drug: Phenergan (promethazine) 12.5 mg Route: IVP; Site: left forearm; jb4 02:13 Follow up: Response: No adverse reaction; Marked relief of symptoms jb4 01:47 Drug: Demerol (meperidine) 25 mg Route: IVP; Site: left forearm; jb4 02:13 Follow up: Response: No adverse reaction; Marked relief of symptoms jb4 Medication: 02:13 VIS not applicable for this client. jb4 Outcome: 01:42 Discharge ordered by . rn 02:15 Discharged to home ambulatory. jb4 02:15 Condition: stable 02:15 Discharge instructions given to patient, Instructed on discharge instructions, follow up and referral plans. Demonstrated understanding of instructions, follow-up care. 02:15 Patient left the ED. jb4 Signatures: Dispatcher [employer] EDMS Ofelia Leblanc RN RN bb Nieto, Roman, MD MD rn Bryson, James, RN RN leo4 Yoselyn Hoffmann [facility] Corrections: (The following items were deleted from the chart) 02:13 02:13 Reassessment: Patient appears in no apparent distress at this time. Patient jb4 and/or family updated on plan of care and expected duration. Pain level reassessed. Patient is alert, oriented x 3, equal unlabored respirations, skin warm/dry/pink. jb4
--- NOTE | 2022-02-07 01:43 | EDPHYS ---
Physician Documentation [facility] Name: Hong Pace Age: 36 yrs Sex: Female : 1985 Arrival Date: 02/07/2022 Time: 00:03 Bed 4 Private MD: ED Physician Darwin Haque HPI: 02/07 00:25 This 36 yrs old Female presents to ER via Ambulatory with complaints of Abdominal Pain. rn 00:25 The patient presents with abdominal pain right lower quadrant. Onset: The rn symptoms/episode began/occurred just prior to arrival. The symptoms do not radiate. Associated signs and symptoms: Pertinent positives: nausea, Pertinent negatives: blood in stools, chest pain, constipation, diarrhea, dysuria, fever. The symptoms are described as achy. Modifying factors: The symptoms are alleviated by nothing, the symptoms are aggravated by nothing. Severity of pain: At its worst the pain was moderate in the emergency department the pain is unchanged. The patient has experienced similar episodes in the past. The patient has not recently seen a physician. 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 - Social history:: Smoking status: Patient reports the use of cigarette tobacco products. - Family history:: not pertinent. - Hospitalizations: : No recent hospitalization is reported. ROS: 00:25 Constitutional: Negative for fever, chills, and weight loss, Eyes: Negative for injury, rn pain, redness, and discharge, Neck: Negative for injury, pain, and swelling, Cardiovascular: Negative for chest pain, palpitations, and edema, Respiratory: Negative for shortness of breath, cough, wheezing, and pleuritic chest pain, Abdomen/GI: + right sided abd pain, + nausea Back: Negative for injury and pain, : Negative for injury, bleeding, discharge, and swelling, MS/Extremity: Negative for injury and deformity, Skin: Negative for injury, rash, and discoloration, Neuro: Negative for headache, weakness, numbness, tingling, and seizure. Exam: 00:25 Constitutional: This is a well developed, well nourished patient who is awake, alert, rn appears uncomfortable Head/Face: Normocephalic, atraumatic. Eyes: Periorbital areas with no swelling, redness, or edema. Cardiovascular: Tachycardic, regular Respiratory: No increased work of breathing, no retractions or nasal flaring. Abdomen/GI: soft, non-tender, no peritoneal signs Skin: Warm, dry MS/ Extremity: Pulses equal, no cyanosis. Neuro: Awake and alert, GCS 15, ambulatory to room with normal gait. Vital Signs: 00:00 BP 151 / 102; Pulse 146; Resp 20; Temp 98.4(O); Pulse Ox 94% on R/A; jb4 00:10 Weight 104.33 kg (R); Height 5 ft. 4 in. (162.56 cm) (R); Pain 9/10; bb 01:07 BP 118 / 81; Pulse 106; Resp 17; Pulse Ox 98% on R/A; jb4 02:13 BP 142 / 84; Pulse 92; Resp 16; Pulse Ox 97% on R/A; jb4 00:10 Body Mass Index 39.48 (104.33 kg, 162.56 cm) bb MDM: 00:04 Patient medically screened. rn 01:41 Differential diagnosis: diverticulitis, Endometriosis, gastritis, non-specific abd rn pain, pancreatitis, Peptic Ulcer Disease, Ureterolithiasis. Data reviewed: vital signs, nurses notes, lab test result(s), radiologic studies, doppler, and as a result, I will discharge patient. Counseling: I had a detailed discussion with the patient and/or guardian regarding: the historical points, exam findings, and any diagnostic results supporting the discharge/admit diagnosis, lab results, radiology results, the need for outpatient follow up, to return to the emergency department if symptoms worsen or persist or if there are any questions or concerns that arise at home. Response to treatment: the patient's symptoms have markedly improved after treatment, and as a result, I will discharge patient. Special discussion: Based on the patient's Hx, exam, and Dx evaluation, there is no indication for emergent surgery or inpatient Tx. It is understood by the patient/guardian that if the Sx's persist or worsen they need to return immediately for re-evaluation. I discussed with the patient/guardian in detail that at this point there is no indication for admission to the hospital. It is understood, however, that if the symptoms persist or worsen the patient needs to return immediately for re-evaluation. ED course: No acute findings in CT abdomen/pelvis, improved vitals after pain medication. Will dc home with return precautions. . 02/07 00:13 Order name: CBC with Diff; Complete Time: : rn 02/07 00:13 Order name: CMP; Complete Time: : rn 02/07 00:13 Order name: CT Stone Protocol rn 02/07 00:13 Order name: Lipase; Complete Time: : rn 02/07 00:13 Order name: IV Saline Lock; Complete Time: 00:50 rn 02/07 00:13 Order name: Labs collected and sent; Complete Time: 00:50 rn Administered Medications: 00:49 Drug: NS 0.9% 1000 ml Route: IV; Rate: 1 bolus; Site: left forearm; jb4 02:14 Follow up: Response: No adverse reaction; IV Status: Completed infusion jb4 00:49 Drug: Phenergan (promethazine) 12.5 mg Route: IVP; Site: left forearm; jb4 01:10 Follow up: Response: No adverse reaction; Marked relief of symptoms jb4 00:49 Drug: morphine 4 mg Route: IVP; Infused Over: 4 mins; Site: left forearm; jb4 01:10 Follow up: Response: No adverse reaction; No change in condition jb4 01:23 Drug: Demerol (meperidine) 50 mg Route: IVP; Site: left forearm; jb4 02:14 Follow up: Response: No adverse reaction; Marked relief of symptoms jb4 01:23 Drug: Phenergan (promethazine) 12.5 mg Route: IVP; Site: left forearm; jb4 02:13 Follow up: Response: No adverse reaction; Marked relief of symptoms jb4 01:47 Drug: Demerol (meperidine) 25 mg Route: IVP; Site: left forearm; jb4 02:13 Follow up: Response: No adverse reaction; Marked relief of symptoms jb4 Disposition Summary: 02/07/22 01:42 Discharge Ordered Location: Home rn Problem: new rn Symptoms: have improved rn Condition: Stable rn Diagnosis - Abdominal pain, unspecified rn Followup: rn - With: Private Physician - When: As needed - Reason: Recheck today's complaints, Re-evaluation by your physician Discharge Instructions: - Discharge Summary Sheet rn - Abdominal Pain, Adult rn - Pain Without a Known Cause rn Forms: - Medication Reconciliation Form rn - Thank You Letter rn - Antibiotic lpn rn - Prescription Opioid Use rn Signatures: Dispatcher [employer] Ofelia Kay, RN RN Darwin Santana MD MD rn Bryson, James, RN RN jb4
[2022-02-07] MEDS ORDERED: MEPERIDINE HCL 25 MG/ML SYR ONE (01:52)
[2022-02-07 02:27] VITALS: TEMP 98.4
[2022-02-07 02:46] VITALS: BP 142/84; O2SAT 97
--- NOTE | 2022-02-07 12:12 | RAD REPORT ---
EXAM DESCRIPTION: CT - Stone Protocol - 02/07/2022 5:23 am CLINICAL HISTORY: Right flank/abd pain, hx of kidney stones, sudden pain TECHNIQUE: Axial computed tomography images of the abdomen and pelvis without intravenous contrast. Sagittal and coronal reformatted images were created and reviewed. This CT exam was performed usi ng one or more of the following dose reduction techniques: automated exposure control, adjustment o f the mA and/or kV according to patient size, and/or use of iterative reconstruction technique. COMPARISON: CT Abdomen Pelvis dated 01/20/2022 FINDINGS: Lung bases: Unremarkable. No mass. No consolidation. ABDOMEN: Liver: Unremarkable. Gallbladder and bile ducts: Prior cholecystectomy. No ductal dilation. Pancreas: Unremarkable. No ductal dilation. Spleen: Unremarkable. No splenomegaly. Adrenals: Unremarkable. No mass. Kidneys and ureters: Small bilateral renal calculi. No hydronephrosis. Stomach and bowel: Prior gastric sleeve. No obstruction. No mucosal thickening. PELVIS: Appendix: The appendix is not definitively visualized. No findings to suggest acute appendicitis. Bladder: Unremarkable. No stones. Reproductive: There has been a hysterectomy. No adnexal cysts or masses are identified. ABDOMEN and PELVIS: Intraperitoneal space: Unremarkable. No free air. No significant fluid collection. Bones/joints: No acute fracture. No dislocation. Soft tissues: Small fat-containing right paracentral upper ventral abdominal wall hernia. Small fat -containing umbilical hernia. Vasculature: Unremarkable. No abdominal aortic aneurysm. Lymph nodes: Unremarkable. No enlarged lymph nodes. IMPRESSION: 1. Bilateral nonobstructive renal calculi. 2. Other findings as above. Electronically signed by: Arslan Grover MD 02/07/2022 1:28 AM CDT Due to temporary technical issues with the PACS/Fluency reporting system, reports are being signed by the in house radiologists without review as a courtesy to insure prompt reporting. The interpreting radiologist is fully responsible for the content of the report.
== END 2022-02-07 02:15 | disposition home or self-care (01) ==
LOC: ER 23:54
DX: R10.31 Right lower quadrant pain (principal); F17.210 Nicotine dependence, cigarettes, uncomplicated; Z88.5 Allergy status to narcotic agent; Z88.6 Allergy status to analgesic agent
CPT/HCPCS: 36415; 74176; 76377; 80053; 83690; 85025; 96361; 96374; 96375; 99284; J2175; J2550; J7030

== ENCOUNTER 2022-03-11 21:56 | Emergency (ER) | payer SELFPAY ==
--- OUTSIDE RECORDS SUMMARY | 2022-03-11 21:59 | XMS REPORT | Clinical Summary ---
:1985 Author Organization [facility] MD [facility] Center Address [address] [place] [address] Care Team Providers Name Role Phone Keila Valentine MD Primary Care Provider Navi Arango PHOTONICS TECHNICIAN Unavailable Allergies Active Allergy Reactions Severity Noted [...] melan nu of skin (Primary Dx) after 03/11/2021 Immunizations Name Administration Dates Next Due Influenza [...] OVARIAN CYST SURGERY 08/29/2018 - Right 09/28/2018 KS EXC SKIN MALIG 0.6-1 CM 09/23/2018 Abdomen/Right Proce dure: EXCISION OF TRUNK,ARM,LEG MALIGNANT LESION OF TRUNK, right epi gastric; Surgeon: Nicolasa Valentine MD; Location: [facility] OR; Service: SURG ON C - [...] Visit Dermatology Lisbeth Shannon M D [address] [place], [place] [address] (Wo rk) Health Maintenance Due Date Last Done Comments COVID-19 Vaccination (#1) 01/11/1987 Results Not on fileafter 03/11/2021 Advance Directives Code Status Date Activated Date Inactivated Comments Full Code 10/04/2018 8:21 PM 10/08/2018 5:55 PM Full Code 09/23/2018 1:48 PM 09/23/2018 6:55 PM Care Teams Household Cook Relationship Specialty Start Date End Date Keila Valentine MD PCP - General Surgical Oncology 08/26/18 [address] [place] [address] Navi Arango FNP PCP - External [facility] 09/08/18 [address] [place] [address]
--- OUTSIDE RECORDS SUMMARY | 2022-03-11 22:20 | XMS REPORT | Continuity of Care Document ---
:1985 Author Organization [facility] t Address [address] [place] [address] Care Team Providers Name Role Phone Keila Valentine MD Primary Care Physician Josué Arango Attending Clinician Unavailable TRICE HARRIS Attending Clinician Unavailable Trice Strickland Attending Clinician Ameena Dupree Attending Clinician AMEENA CASTANEDA Attending Clinician Unavailable Praveen Blas MD Attending Clinician EKTA BERMUDEZ Attending Clinician Unavailable Olga Clements Attending Clinician Unavailable SETH DYKES Attending Clinician Unavailable REHAN COTTON Attending Clinician Unavailable Viktoriya Wright RN Attending Clinician JUAN MENSAH Attending Clinician Unavailable CHIDIMR CHENUG Attending Clinician Unavailable Tangela Perez Attending Clinician Unavailable DO WYATT SOTOMAYOR Attending Clinician Unavailable AMBROSIO MUÑOZ Attending Clinician Unavailable PRAVEEN BLAS Attending Clinician Unavailable ELIUD STAFFORD Attending Clinician Unavailable LIZBETH WOLFE Attending Clinician Unavailable FLOYD VERA Attending Clinician Unavailable POLLY HONG Attending Clinician Unavailable DR LEXUS MCINTOSH Attending Clinician Unavailable QUINTIN BRITO Attending Clinician Unavailable TRICE HARRIS Admitting Clinician Unavailable EKTA BERMUDEZ Admitting Clinician Unavailable Physician, No Primary or Family Admitting Clinician UnavailSETH Braun Admitting Clinician Unavailable REHAN COTTON Admitting Clinician Unavailable JUAN MENSAH Admitting Clinician Unavailable MR WARREN MURILLOE Admitting Clinician Unavailable DO WYATT SOTOMAYOR Admitting Clinician Unavailable AMBROSIO MUÑOZ Admitting Clinician Unavailable ELIUD STAFFORD Admitting Clinician Unavailable LIZBETH WOLFE Admitting Clinician Unavailable JODY, FLOYD Admitting Clinician Unavailable POLLY HONG Admitting Clinician Unavailable DR LEXUS MCINTOSH Admitting Clinician Unavailable QUINTIN BRITO Admitting Clinician Unavailable MIKY THOMPSON Admitting Clinician Unavailable DIMAS HAQUE Admitting Clinician Unavailable DR ASA BLOOM Admitting Clinician Unavailable Payers Payer Name Policy Type Policy Number Effective Date Expiration Date Abhinav durbin [id number] 1958 00:00:00 [id number] 1958 00:00:00 PHCS GENERIC [id number] 2018 00:00:00 Problems Condition Condition Condition Status [...] [facility] cause cause 00:00: Memoria unknown unknown 00 l (LUF/LI V/SA) Abdominal Abdominal Problem [facility] Memoria 00 l (LUF/LI V/SA) Kidney Kidney Problem Active [facility] stone stone 8-12 [facility] 00:[facility]: Memoria 00 l (LUF/LI V/SA) Low back Low back Problem Active [facility] pain pain 01[facility]24 [facility] 00:00: Memoria 00 l (LUF/LI V/SA) Unspecifie Unspecifie Problem Active [facility] d fall d fall 7- [facility] 00:[facility]: Memoria 00 l (LUF/LI V/SA) Chronic Chronic Problem Active [facility] abdominal abdominal 6-10 [facility] pain pain 00:00: Memoria 00 l (LUF/LI V/SA) Tension-ty Tension-ty Problem Active [facility] pe pe 1-28 [facility] headache headache 00:00: Memori a 00 [...] Active Overview: Univers for other for other 3-11 Formattin i ty of preprocedu preprocedu 00:00: g of this [place] ral ral 00 note examinatio examinatio might be Gian payton n different n from the Cancer original. Center EKG 09/08/2018 NSRNR [id number] Obesity Obesity Disease Active Overview: Univ ers 3-11 Formattin ity of 00:00: g of this [place] 00 note is MD jim Springer from the n original. Cancer BMI Center Readings from Last 2 Encounter s: 09/08/18 36.82 kg/m2 Hypothyroi Hypothyroi Disease Active U nivers dism dism 3-11 ity of 00:00: [place] 00 MD [facility] Malignant Malignant Disease Active Uni vers melanoma melanoma 3-06 ity of of other of other 00:00: [place] part of part of 00 trunk trunk [...] (LUF/LI V/SA) Anxiety Anxiety Problem Active [facility] Memoria l (LUF/LI V/SA) No known No known Disease Unive rs active active ity of problems problems [facility] Allergies, Adverse Reactions, Alerts Allergy Allergy Status Severity Reaction(s) Onset Inactive Treating Comm ents Source Name Type Date Date Clinician ketorola DA Active U rash [facility]- [place] 00:00: d 00 [facility] KETOROLA DRUG Active Low Rash 2020-07 Univers C INGREDI 08-22 ity of 00:00: [place] 00 [facility] Ketorola Propensi Active Rash 2020-07 Univer s c ty to 08-22 ity of adverse 00:00: [place] reaction 00 [facility] ketorola DA Active ND [facility] 9-10 [facility] l [facility] ketorola DA Active U rash [facility] 9- [place] 00:00: d 00 [facility] ketorola DA Active U [facility] c 9-24 [place] 00:00: d 00 [facility] [place] Drug Active Itching Univers c Allergy 07-19 ity of 00:00: [place] 00 MD Gian payton [facility] Toradol Adverse Active Info Not Common Reaction Available Sp[facility] t - [facility] Family History Family Member Diagnosis Comments Start Date Stop Date Source Natural mother -Breast cancer [facility] [place] MD Disla Cance r Gabriels Social History Social Habit Start Date Stop Date Quantity Comments Source Exposure to 2022-02-09 2022-02-19 Not sure University SARS-CoV-2 (event) 00:00:00 09:20:00 [facility] Alcohol intake 2018-10-04 2018-10-04 Current University of 00:00:00 00:00:00 non-drinker of [place] MD Lila muñoz alcohol [facility] (finding) Cigarette 2018-09-04 2018-09-04 University of pack-years 00:00:00 00:00:00 [place] MD Bah son Cancer Gabriels Tobacco use and 2018-09-04 2018-09-04 Smokeless Universit y of exposure 00:00:00 00:00:00 tobacco non-user [place] [facility] Cigarettes smoked 2018-09-04 2018-09-04 Univers ity of current (pack per 00:00:00 00:00:00 [place] Zoltan Neely ) - Reported Cancer Ce nter History of tobacco 2004-07-01 2017-05-11 Smoker Univer sity of use 00:00:00 00:00:00 [facility] Sex Ass[birth year] At [birth year] Universit y of 00:00:00 00:00:00 Jeffrey banuelos [facility] Center Smoking Status Start Date Stop Date Source Tobacco smoking [facility] consumption unknown Never smoked tobacco [facility] Ex-smoker 2018-09-04 00:00:00 2018-09-04 [place] o f Jeffrey BARNARD 00:00:00 [facility] Medications Ordered Filled Start Stop Current Ordering Indication Dosage Frequency Signature Comments Components Source Medication Medication Date Date Medication? Clinician (SIG) Name Name metoclopram 2021- No 10mg 10 mg, Uni vers oleg HCl 02-19 Slow IV ity of (REGLAN) 15:30: 15:37 Push, [place] injection 00 :00 ONCE, 1 Medical 10 mg dose, On Branch 02/19/22 at 1030, JOSE NaCl 0.9% 2021- No 1000mL at 999 Uni vers (NS) bolus 02-19 mL/hr, ity of infusion 15:30: 15:58 1,000 mL, Jacques as 1,000 mL 00 :00 IV Medical Infusion, Branch ONCE, 1 dose, On 02/19/22 at 1030, JOSE morpHINE (4 2021- No 4mg 4 mg, Slow Univers mg/mL) 02-19 IV Push, ity of injection 4 14:45: 15:05 [place]CE, 1 [place] mg 00 :00 dose, On Medical Mon Branch 02/19/22 at 0945, STAT ondansetron 2021- No 4mg 4 mg, Slow Univers (ZOFRAN 02-19 IV Push, ity of (PF)) 14:30: 15:05 ONCE, 1 [place] injection 4 00 :00 dose, On Medi felipa mg Mon Branch 02/19/22 at 0930, JOSE methylPREDN Yes [id number] Take by [facility] 11-29 mouth ity of (MEDROL, 00:00: SEE-INSTRU Jacques as TE,) 4 mg 00 CTIONS. Medica l tablets follow Branch package directions methylPREDN Yes [id number] Take by Univers ISolone 6 mouth ity of (MEDROL, 00:00: SEE-INSTRU Jacques as TE,) 4 mg 00 CTIONS. Medica l tablets follow Branch package directions amoxicillin 2- No [id number] 1{tbl} Take 1 Univers -clavulanat 11-29 tablet by it y of e [id number] 00:00: 04:59 mouth 2 [place] mg per 00 :00 (two) Medical tablet times Branch daily for 7 days. codeine-gua 2021- No [id number] 5mL Take 5 mL Univers ifenesin 11-29 by mouth ity of 10-100 mg/5 00:00: 04:59 every 6 [place] mL oral 00 :00 (six) Medical solution hours as Branch needed for Cough for up to 7 days. Indication s: acute pain estrogens, Yes Take by [facility] ers conjugated 3-01 mouth. ity of (PREMARIN 16:19: [place] ORAL) 44 Medical Branch estrogens, Yes Take by [facility] ers conjugated 3-01 mouth. ity of (PREMARIN 16:19: [place] ORAL) 44 Medical Branch naproxen Yes [id number] 500mg Take 1 U nivers (NAPROSYN) 2-02 tablet by ity of 500 mg 00:00: mouth 2 [place] tablet 00 (two) Medical times Branch daily with meals. naproxen Yes [id number] 500mg Take 1 U nivers (NAPROSYN) 2-02 tablet by ity of 500 mg 00:00: mouth 2 [place] tablet 00 (two) Medical times Branch daily with meals. albuterol 2020-07 Yes [id number] 2{puff} Inhale 2 Univers 90 2-22 Puffs [...] Branch needed for Cough. Indication s: cough albuterol 2020-07 Yes [id number] 2{puff} Inhale 2 Univers 90 2-22 Puffs [...] THE Branch MORNING ON AN EMPTY STOMACH levothyroxi 2020-07 Yes TAKE 1 Univ ers ne 137 mcg 2-16 TABLET BY ity of tablet 00:00: MOUTH [place] 00 EVERY DAY Medical IN THE Branch [...] 0-23 [facility] 00:00: - [facility] 00 [facility] estrogens, 2018-07 Yes Take by Univ ers conjugated 0-23 mouth ity of (PREMARIN 00:00: daily. [place] ORAL) 00 [facility], 2018-07 Yes Take by Univ ers conjugated 0-23 mouth ity of (PREMARIN 00:00: daily. [place] ORAL) 00 MD Gian payton [facility] estrogens, 2018-07 Yes Take by Univ ers conjugated 0-23 mouth ity of (PREMARIN 00:00: daily. [place] ORAL) 00 [facility] estrogens, 2018- Yes Take by Univ ers conjugated 0-23 mouth ity of (PREMARIN 00:00: daily. [place] ORAL) 00 [facility] Estradiol Estradiol 2018- Yes Kaywin 1 tablet Common 0- [facility] 00:00: - [facility] 00 [facility] citalopram Yes Univers (CeleXA) 40 9-10 ity of mg tablet 00:00: [facility] citalopram Yes Univers (CeleXA) 40 9-10 ity of mg tablet 00:00: [facility] citalopram Yes Univers (CeleXA) 40 9-10 ity of mg tablet 00:00: [facility] citalopram Yes Univers (CeleXA) 40 9-10 ity of mg tablet 00:00: [facility] levothyroxi 0 Yes Univer s ne 175 mcg 8-10 ity of cap [facility] Yes Univer s ne 175 mcg 8-10 ity of cap 00:00: MD Springer [facility] levothyroxi 0 Yes Univer s ne 175 mcg 8-10 ity of cap 00:00: MD Springer [facility] levothyroxi Yes Univer s ne 175 mcg 8-10 ity of cap 00:00: MD Springer [facility] zolpidem 0 Yes Univers (AMBIEN) 10 07-01 ity of mg tablet 00:00: MD Springer [facility] zolpidem 2006- Yes Univers (AMBIEN) 10 07-01 ity of mg tablet 00:00: MD Springer [facility] zolpidem 0 Yes Univers (AMBIEN) 10 07-01 ity of mg tablet 00:00: MD Gian payton [facility] zolpidem 2006-0 Yes Univers (AMBIEN) 10 07-01 ity of mg tablet 00:00: [place] 00 [facility] acetaminoph acetaminoph Yes [address] [...] C [facility] St conjugated conjugated Gutierrez es (LONG TERM) 1.25 (LONG TERM) 1.25 Mem oria MG Oral MG Oral [...] [facility] conjugated conjugated daily Olamide kes (LONG TERM) 1.25 (LONG TERM) 1.25 Mem oria MG Oral MG Oral l Tablet Tablet (LUF/LI V/SA) levothyroxi levothyroxi Yes 150ug 1xD orally [facility] ne daily [facility]oria l (LUF/LI V/SA) Celexa Celexa Yes Kaywin 1 tablet Commo n [facility] Levothyroxi Levothyroxi Yes Kaywin 1 tablet Common ne Sodium ne Sodium Aiden on an Sp karla empty - [facility]I stomach in [facility] Estradiol Estradiol Yes Kaywin 1 patch to Common [facility] Immunizations Ordered Filled Immunization Date Status Comments [facility] e Immunization Name Name influenza, high influenza, high 2015-04-19 Completed [facility] dose seasonal, dose seasonal, 00:00:00 Memori al preservative-free preservative-free (LUF/DAVID/SA) Influenza, 2011-03-30 Completed University of Unspecified 00:00:00 [place] MD [facility] Td 2011-03-30 Completed University of 00:00:00 [place] MD Bah [facility] Influenza, 2011-03-30 Completed University of Unspecified 00:00:00 [place] MD [facility] Td 2011-03-30 Completed University of 00:00:00 [place] [facility] Influenza, 2011-03-30 Completed University of Unspecified 00:00:00 [place] MD [facility] Td 2011-03-30 Completed University of 00:00:00 [place] [facility] Influenza, 2011-03-30 Completed University of Unspecified 00:00:00 [place] MD Hamilton [facility] 2011-03-30 Completed University of 00:00:00 [place] MD Bah [facility] Influenza (IM) 2009-04-05 Completed University of Preservative Free 00:00:00 [facility] Influenza (IM) 2009-04-05 Completed University of Preservative Free 00:00:00 [facility] Influenza (IM) 2009-04-05 Completed University of Preservative Free 00:00:00 [facility] Influenza (IM) 2009-04-05 Completed University of Preservative Free 00:00:00 [facility] Vital Signs Vital Name Observation Time Observation Value Comments Source Systolic blood 2022-02-19 14:13:00 156 mm[Hg] Univer sity of pressure [facility] Diastolic blood 2022-02-19 14:13:00 94 mm[Hg] Unive rsity of pressure [place] [facility] Heart rate 2022-02-19 14:13:00 111 /min [facility] [place] [facility] Body temperature 2022-02-19 14:13:00 37.11 Ericka Univ [facility] [place] [facility] Respiratory rate 2022-02-19 14:13:00 22 /min Univ [facility] [place] [facility] Body height 2022-02-19 14:13:00 162.6 cm [facility] [place] [facility] Body weight 2022-02-19 14:13:00 104.327 kg [facility] [place] [facility] BMI 2022-02-19 14:13:00 39.48 kg/m2 [facility] [place] [facility] Oxygen saturation in 2022-02-19 14:13:00 99 /min University of Arterial blood by [place] RedSeguro felipa Pulse oximetry Branch Systolic blood 2021-11-29 22:40:00 116 mm[Hg] Univer sity of pressure [place] [facility] Diastolic blood 2021-11-29 22:40:00 85 mm[Hg] Unive rsity of pressure [place] [facility] Heart rate 2021-11-29 22:40:00 87 /min [facility] [place] [facility] Body temperature 2021-11-29 22:40:00 37.28 Ericka [facility] [place] [facility] Respiratory rate 2021-11-29 22:40:00 16 /min [facility] [place] [facility] Body height 2021-11-29 22:40:00 162.6 cm [facility] [place] [facility] Body weight 2021-11-29 22:40:00 103.874 kg [facility] [place] [facility] BMI 2021-11-29 22:40:00 39.31 kg/m2 [facility] [place] [facility] Oxygen saturation in 2021-11-29 22:40:00 98 /min University of Arterial blood by [place] RedSeguro felipa Pulse oximetry Branch Height 2021-04-23 00:58:00 162.56 [...] Center Heart rate 2021-10-26 15:16:33 92 /min [facility] Respiratory rate 2021-10-26 15:16:33 16 /min [facility] Oxygen saturation in 2021-10-26 15:16:33 98 /min [facility] Arterial blood by Jeffrey muñoz Pulse oximetry [facility] Center Body Temperature 2021-04-23 00:58:00 97.8 [degF] [facility] (LUF/DAVID/SA) Pulse Rate 2021-04-23 00:58:00 116 /min [facility] (LUF/DAVID/SA) Respiratory Rate 2021-04-23 00:58:00 18 /min [facility] (LUF/DAVID/SA) O2% BldC Oximetry 2021-04-23 00:58:00 99 % [facility] (LUF/DAVID/SA) BP Systolic 2021-04-23 00:58:00 111 mm[Hg] [facility] (LUF/DAVID/SA) BP Diastolic 2021-04-23 00:58:00 77 mm[Hg] [facility] (LUF/DAVID/SA) Height 2021-04-23 00:58:00 64 [in_i] [facility] (LUF/DAVID/SA) Weight 2021-04-23 00:58:00 105.1 kg [facility] (LUF/DAVID/SA) BMI (Body Mass 2021-04-23 00:58:00 40 kg/m2 [facility] Index) [facility] (LUF/DAVID/SA) Body Temperature 2021-03-24 10:53:00 98.6 [degF] [facility] (LUF/DAVID/SA) Pulse Rate 2021-03-24 10:53:00 87 /min [facility] (LUF/DAVID/SA) Respiratory Rate 2021-03-24 10:53:00 18 /min [facility] (LUF/DAVID/SA) O2% BldC Oximetry 2021-03-24 10:53:00 97 % [facility] (LUF/DAVID/SA) BP Systolic 2021-03-24 10:53:00 120 mm[Hg] [facility] (LUF/DAVID/SA) BP Diastolic 2021-03-24 10:53:00 86 mm[Hg] [facility] (LUF/DAVID/SA) Height 2021-03-24 10:53:00 64 [in_i] [facility] (LUF/DAVID/SA) Weight 2021-03-24 10:53:00 105 kg [facility] (LUF/DAVID/SA) BMI (Body Mass 2021-03-24 10:53:00 40 kg/m2 [facility]) [facility] (LUF/DAVID/SA) Body Temperature 2021-03-10 10:55:00 98.4 [degF] [facility] (LUF/DAVID/SA) Pulse Rate 2021-03-10 10:55:00 85 /min [facility] (LUF/DAVID/SA) Respiratory Rate 2021-03-10 10:55:00 20 /min [facility] (LUF/DAVID/SA) O2% BldC Oximetry 2021-03-10 10:55:00 100 % [facility] (LUF/DAVID/SA) BP Systolic 2021-03-10 10:55:00 140 mm[Hg] [facility] (LUF/DAVID/SA) BP Diastolic 2021-03-10 10:55:00 98 mm[Hg] [facility] (LUF/DAVID/SA) Height 2021-03-10 10:55:00 64 [in_i] [facility] (F/DAVID/SA) Weight 2021-03-10 10:55:00 105.2 kg [facility] (LUF/DAVID/SA) BMI (Body Mass 2021-03-10 10:55:00 40 kg/m2 [facility] (LUF/DAVID/SA) Pulse Rate 2021-02-23 12:32:00 67 /min [facility] (LUF/DAVID/SA) O2% BldC Oximetry 2021-02-23 12:32:00 98 % [facility] (LUF/DAVID/SA) BP Systolic 2021-02-23 12:32:00 112 mm[Hg] [facility] (LUF/DAVID/SA) BP Diastolic 2021-02-23 12:32:00 70 mm[Hg] [facility] (LUF/DAVID/SA) Heart Rate 2021-02-23 11:16:00 64 /min [facility] (LUF/DAVID/SA) Respiratory Rate 2021-02-23 11:16:00 14 /min [facility] (LUF/DAVID/SA) Body Temperature 2021-02-23 08:24:00 98.1 [degF] [facility] (LUF/DAVID/SA) Height 2021-02-23 08:24:00 64 [in_i] [facility] (LUF/DAVID/SA) Weight 2021-02-23 08:24:00 110 kg [facility] (F/DAVID/SA) BMI (Body Mass 2021-02-23 08:24:00 41.9 kg/m2 [place] [facility] (LUF/DAVID/SA) Heart Rate 2021-01-10 01:46:00 93 /min [facility] (LUF/DAVID/SA) Pulse Rate 2021-01-10 01:46:00 95 /min [facility] (LUF/DAVID/SA) Respiratory Rate 2021-01-10 01:46:00 16 /min [facility] (F/DAVID/SA) O2% BldC Oximetry 2021-01-10 01:46:00 97 % [facility] (F/DAVID/SA) BP Systolic 2021-01-10 01:46:00 103 mm[Hg] [facility] (LUF/DAVID/SA) BP Diastolic 2021-01-10 01:46:00 71 mm[Hg] [facility] (F/DAVID/SA) Weight 2021-01-10 00:53:00 102 kg [facility] (F/DAVID/SA) Body Temperature 2021-01-10 00:47:00 98.6 [degF] [facility] (F/DAVID/SA) Pulse Rate 2020-12-12 14:20:00 87 /min [facility] (F/DAIVD/SA) O2% BldC Oximetry 2020-12-12 14:20:00 98 % [facility] (F/DAVID/SA) BP Systolic 2020-12-12 14:20:00 128 mm[Hg] [facility] (LUF/DAVID/SA) BP Diastolic 2020-12-12 14:20:00 86 mm[Hg] [facility] (F/DAVID/SA) Body Temperature 2020-12-12 12:39:00 98.9 [degF] [facility] (F/DAVID/SA) Respiratory Rate 2020-12-12 12:39:00 20 /min [facility] (LUF/DAVID/SA) Weight 2020-12-12 12:39:00 102 kg [facility] (LUF/DAVID/SA) Body Temperature 2020-12-08 10:27:00 98.6 [degF] [facility] (LUF/DAVID/SA) Pulse Rate 2020-12-08 10:27:00 79 /min [facility] (LUF/DAVID/SA) Respiratory Rate 2020-12-08 10:27:00 16 /min [facility] (LUF/DAVID/SA) O2% BldC Oximetry 2020-12-08 10:27:00 99 % [facility] (LUF/DAVID/SA) BP Systolic 2020-12-08 10:27:00 111 mm[Hg] [facility] (LUF/DAVID/SA) BP Diastolic 2020-12-08 10:27:00 57 mm[Hg] [facility] (LUF/DAVID/SA) Weight 2020-12-08 10:27:00 103 kg [facility] (LUF/DAVID/SA) Body Temperature 2020-11-25 00:27:00 97.9 [degF] [facility] (LUF/DAVID/SA) Pulse Rate 2020-11-25 00:27:00 82 /min [facility] (LUF/DAVID/SA) Respiratory Rate 2020-11-25 00:27:00 17 /min [facility] (LUF/DAVID/SA) O2% BldC Oximetry 2020-11-25 00:27:00 98 % [facility] (LUF/DAVID/SA) BP Systolic 2020-11-25 00:27:00 109 mm[Hg] [facility] (LUF/DAVID/SA) BP Diastolic 2020-11-25 00:27:00 62 mm[Hg] [facility] (LUF/DAVID/SA) Heart Rate 2020-11-21 09:30:00 75 /min [facility] (LUF/DAVID/SA) Respiratory Rate 2020-11-21 09:30:00 14 /min [facility] (LUF/DAVID/SA) BP Systolic 2020-11-21 09:30:00 120 mm[Hg] [facility] (LUF/DAVID/SA) BP Diastolic 2020-11-21 09:30:00 76 mm[Hg] [facility] (LUF/DAVID/SA) Body Temperature 2020-11-21 07:15:00 98.1 [degF] [facility] (LUF/DAVID/SA) Pulse Rate 2020-11-21 07:15:00 103 /min [facility] (LUF/DAVID/SA) O2% BldC Oximetry 2020-11-21 07:15:00 100 % [facility] (LUF/DAVID/SA) Height 2020-11-21 07:15:00 64 [in_i] [facility] (F/DAVID/SA) Weight 2020-11-21 07:15:00 103.1 kg [facility] (LUF/DAVID/SA) BMI (Body Mass 2020-11-21 07:15:00 39.2 kg/m2 [facility] (LUF/DAVID/SA) Heart Rate 2020-11-14 13:30:00 69 /min [facility] (LUF/DAVID/SA) Pulse Rate 2020-11-14 13:30:00 70 /min [facility] (LUF/DAVID/SA) Respiratory Rate 2020-11-14 13:30:00 10 /min [facility] (LUF/DAVID/SA) O2% BldC Oximetry 2020-11-14 13:30:00 96 % [facility] (LUF/DAVID/SA) BP Systolic 2020-11-14 13:30:00 103 mm[Hg] [facility] (LUF/DAVID/SA) BP Diastolic 2020-11-14 13:30:00 77 mm[Hg] [facility] (LUF/DAVID/SA) Body Temperature 2020-11-14 09:47:00 97.4 [degF] [facility] (LUF/DAVID/SA) Weight 2020-11-14 09:47:00 103 kg [facility] (LUF/DAVID/SA) Body Temperature 2020-11-08 08:32:00 98.1 [degF] Formerly [facility] (LUF/DAVID/SA) Pulse Rate 2020-11-08 08:32:00 82 /min [facility] (LUF/DAVID/SA) Respiratory Rate 2020-11-08 08:32:00 20 /min [facility]ly [facility] (F/DAVID/SA) O2% BldC Oximetry 2020-11-08 08:32:00 100 % [facility]ly [facility] (F/DAVID/SA) BP Systolic 2020-11-08 08:32:00 129 mm[Hg] [facility] (F/DAVID/SA) BP Diastolic 2020-11-08 08:32:00 72 mm[Hg] [facility] (F/DAVID/SA) Height 2020-11-08 08:32:00 64 [in_i] [facility] (F/DAVID/SA) Weight 2020-11-08 08:32:00 103.1 kg [facility] (F/DAVID/SA) BMI (Body Mass 2020-11-08 08:32:00 39.2 kg/m2 [facility] (F/DAVID/SA) Body Temperature 2020-11-01 00:58:00 98.7 [degF] Formerly [facility] (F/DAVID/SA) Pulse Rate 2020-11-01 00:58:00 104 /min [facility] (F/DAVID/SA) Respiratory Rate 2020-11-01 00:58:00 20 /min [facility]ly [facility] (F/DAVID/SA) O2% BldC Oximetry 2020-11-01 00:58:00 99 % [facility]ly [facility] (F/DAVID/SA) BP Systolic 2020-11-01 00:58:00 133 mm[Hg] [facility] (LUF/DAVID/SA) BP Diastolic 2020-11-01 00:58:00 101 mm[Hg] [facility] (F/DAVID/SA) Height 2020-11-01 00:53:00 65 [in_i] [facility] (LUF/DAVID/SA) Weight 2020-11-01 00:53:00 103 kg [facility] (LUF/DAVID/SA) BMI (Body Mass 2020-11-01 00:53:00 37.8 kg/m2 [facility] Index) [facility] (LUF/DAVID/SA) Body Temperature 2020-10-04 23:51:00 98 [degF] Formerly [facility] (LUF/DAVID/SA) Pulse Rate 2020-10-04 23:51:00 96 /min [facility] (LUF/DAVID/SA) Respiratory Rate 2020-10-04 23:51:00 20 /min Formerly [facility] (LUF/DAVID/SA) O2% BldC Oximetry 2020-10-04 23:51:00 98 % [facility]ly [facility] (LUF/DAVID/SA) BP Systolic 2020-10-04 23:51:00 125 mm[Hg] [facility] (LUF/DAVID/SA) BP Diastolic 2020-10-04 23:51:00 73 mm[Hg] [facility] (LUF/DAVID/SA) Height 2020-10-04 23:47:00 65 [in_i] [facility] (LUF/DAVID/SA) Weight 2020-10-04 23:47:00 102.6 kg [facility] (LUF/DAVID/SA) BMI (Body Mass 2020-10-04 23:47:00 37.6 kg/m2 [facility] Index) [facility] (LUF/DAVID/SA) Body Temperature 2020-09-18 01:44:00 98.3 [degF] Formerly [facility] (LUF/DAVID/SA) Pulse Rate 2020-09-18 01:44:00 116 /min [facility] (LUF/DAVID/SA) Respiratory Rate 2020-09-18 01:44:00 20 /min [facility]ly [facility] (LUF/DAVID/SA) O2% BldC Oximetry 2020-09-18 01:44:00 99 % [facility] (LUF/DAVID/SA) BP Systolic 2020-09-18 01:44:00 127 mm[Hg] [facility] (LUF/DAVID/SA) BP Diastolic 2020-09-18 01:44:00 83 mm[Hg] [facility] (LUF/DAVID/SA) Height 2020-09-18 01:40:00 64 [in_i] [facility] (LUF/DAVID/SA) Weight 2020-09-18 01:40:00 102.8 kg [facility] (LUF/DAVID/SA) BMI (Body Mass 2020-09-18 01:40:00 39.1 kg/m2 [facility]) [facility] (LUF/DAVID/SA) Pulse Rate 2020-09-12 02:16:00 88 /min [facility] (F/DAVID/SA) O2% BldC Oximetry 2020-09-12 02:16:00 98 % [facility] (F/DAVID/SA) BP Systolic 2020-09-12 02:16:00 113 mm[Hg] [facility] (LUF/DAVID/SA) BP Diastolic 2020-09-12 02:16:00 64 mm[Hg] [facility] (LUF/DAVID/SA) Body Temperature 2020-09-12 00:56:00 97.9 [degF] [facility]ly [facility] (F/DAVID/SA) Respiratory Rate 2020-09-12 00:56:00 18 /min [facility]ly [facility] (F/DAVID/SA) Height 2020-09-12 00:50:00 65 [in_i] [facility] (LUF/DAVID/SA) Weight 2020-09-12 00:50:00 104.5 kg [facility] (F/DAVID/SA) BMI (Body Mass 2020-09-12 00:50:00 38.3 kg/m2 [facility]) [facility] (LUF/DAVID/SA) Pulse Rate 2020-08-22 03:16:00 100 /min [facility] (F/DAVID/SA) O2% BldC Oximetry 2020-08-22 03:16:00 95 % [facility] (LUF/DAVID/SA) BP Systolic 2020-08-22 03:16:00 129 mm[Hg] [facility] (LUF/DAVID/SA) BP Diastolic 2020-08-22 03:16:00 88 mm[Hg] [facility] (LUF/DAVID/SA) Body Temperature 2020-08-22 01:35:00 98.4 [degF] [facility]ly [facility] (LUF/DAVID/SA) Respiratory Rate 2020-08-22 01:35:00 20 /min [facility]ly [facility] (LUF/DAVID/SA) Height 2020-08-22 01:35:00 64 [in_i] [facility] (LUF/DAVID/SA) Weight 2020-08-22 01:35:00 102 kg [facility] (LUF/DAVID/SA) BMI (Body Mass 2020-08-22 01:35:00 38.8 kg/m2 [facility] (LUF/DAVID/SA) Pulse Rate 2020-08-06 03:31:00 83 /min [facility] (LUF/DAVID/SA) O2% BldC Oximetry 2020-08-06 03:31:00 96 % [facility] (LUF/DAVID/SA) BP Systolic 2020-08-06 03:31:00 127 mm[Hg] [facility] (LUF/DAVID/SA) BP Diastolic 2020-08-06 03:31:00 82 mm[Hg] [facility] (LUF/DAVID/SA) Body Temperature 2020-08-06 01:45:00 98 [degF] [facility]ly [facility] (LUF/DAVID/SA) Respiratory Rate 2020-08-06 01:45:00 20 /min [facility] (LUF/DAVID/SA) Height 2020-08-06 01:39:00 66 [in_i] [facility] (LUF/DAVID/SA) Weight 2020-08-06 01:39:00 104.2 kg [facility] (LUF/DAVID/SA) BMI (Body Mass 2020-08-06 01:39:00 37.3 kg/m2 [facility] (LUF/DAVID/SA) Pulse Rate 2020-07-19 11:16:00 67 /min [facility] (LUF/DAVID/SA) O2% BldC Oximetry 2020-07-19 11:16:00 94 % [facility] (LUF/DAVID/SA) BP Systolic 2020-07-19 11:16:00 101 mm[Hg] [facility] (LUF/DAVID/SA) BP Diastolic 2020-07-19 11:16:00 63 mm[Hg] [facility] (LUF/DAVID/SA) Body Temperature 2020-07-19 07:50:00 98 [degF] [facility]ly [facility] (LUF/DAVID/SA) Respiratory Rate 2020-07-19 07:50:00 18 /min [facility]ly [facility] (F/DAVID/SA) Weight 2020-07-19 07:50:00 100 kg [facility] (LUF/DAVID/SA) Heart Rate 2020-07-05 04:46:00 80 /min [facility] (LUF/DAVID/SA) Respiratory Rate 2020-07-05 04:46:00 15 /min [facility] (LUF/DAVID/SA) BP Systolic 2020-07-05 04:46:00 134 mm[Hg] [facility] (LUF/DAVID/SA) BP Diastolic 2020-07-05 04:46:00 60 mm[Hg] [facility] (LUF/DAVID/SA) Body Temperature 2020-07-05 02:57:00 98 [degF] [facility] (LUF/DAVID/SA) Pulse Rate 2020-07-05 02:57:00 82 /min [facility] (F/DAVID/SA) O2% BldC Oximetry 2020-07-05 02:57:00 99 % [facility] (LUF/DAVID/SA) Height 2020-07-05 02:50:00 65 [in_i] [facility] (LUF/DAVID/SA) Weight 2020-07-05 02:50:00 102.1 kg [facility] (LUF/DAVID/SA) BMI (Body Mass 2020-07-05 02:50:00 37.5 kg/m2 [facility] Index) [facility] (LUF/DAVID/SA) Body Temperature 2020-06-07 13:38:00 98.5 [degF] [facility]ly [facility] (LUF/DAVID/SA) Pulse Rate 2020-06-07 13:38:00 95 /min [facility] (LUF/DAVID/SA) Respiratory Rate 2020-06-07 13:38:00 20 /min [facility] (LUF/DAVID/SA) O2% BldC Oximetry 2020-06-07 13:38:00 97 % [facility] (LUF/DAVID/SA) BP Systolic 2020-06-07 13:38:00 129 mm[Hg] [facility] (LUF/DAVID/SA) BP Diastolic 2020-06-07 13:38:00 73 mm[Hg] [facility] (LUF/DAVID/SA) Height 2020-06-07 13:38:00 64 [in_i] [facility] (LUF/DAVID/SA) Weight 2020-06-07 13:38:00 99.79 kg [facility] (LUF/DAVID/SA) BMI (Body Mass 2020-06-07 13:38:00 38 kg/m2 [facility] Index) [facility] (LUF/DAVID/SA) Body Temperature 2020-05-31 09:45:00 99.6 [degF] [facility]ly [facility] (LUF/DAVID/SA) Pulse Rate 2020-05-31 09:45:00 86 /min [facility] (LUF/DAVID/SA) Respiratory Rate 2020-05-31 09:45:00 18 /min [facility] (LUF/DAVID/SA) O2% BldC Oximetry 2020-05-31 09:45:00 98 % [facility] (LUF/DAVID/SA) BP Systolic 2020-05-31 09:45:00 118 mm[Hg] [facility] (LUF/DAVID/SA) BP Diastolic 2020-05-31 09:45:00 78 mm[Hg] [facility] (LUF/DAVID/SA) Height 2020-05-31 09:45:00 64 [in_i] [facility] (LUF/DAVID/SA) Weight 2020-05-31 09:45:00 99.79 kg [facility] (LUF/DAVID/SA) BMI (Body Mass 2020-05-31 09:45:00 38 kg/m2 [facility] Index) [facility] (LUF/DAVID/SA) Heart Rate 2020-04-25 20:01:00 69 /min [facility] (LUF/DAVID/SA) Pulse Rate 2020-04-25 20:01:00 71 /min [facility] (LUF/DAVID/SA) Respiratory Rate 2020-04-25 20:01:00 18 /min [facility] (LUF/DAVID/SA) O2% BldC Oximetry 2020-04-25 20:01:00 100 % [facility] (LUF/DAVID/SA) BP Systolic 2020-04-25 20:01:00 126 mm[Hg] [facility] (LUF/DAVID/SA) BP Diastolic 2020-04-25 20:01:00 86 mm[Hg] [facility] (LUF/DAVID/SA) Body Temperature 2020-04-25 16:50:00 98.4 [degF] [facility] (LUF/DAVID/SA) Height 2020-04-25 16:50:00 64 [in_i] [facility] (LUF/DAVID/SA) Weight 2020-04-25 16:50:00 220 [lb_av] [facility] (LUF/DAVID/SA) BMI (Body Mass 2020-04-25 16:50:00 38 kg/m2 [facility] Index) [facility] (LUF/DAVID/SA) Heart Rate 2020-03-20 18:18:00 112 /min [facility] (LUF/DAVID/SA) Pulse Rate 2020-03-20 18:16:00 93 /min [facility] (LUF/DAVID/SA) O2% BldC Oximetry 2020-03-20 18:16:00 92 % [facility] (LUF/DAVID/SA) BP Systolic 2020-03-20 18:16:00 127 mm[Hg] [facility] (LUF/DAVID/SA) BP Diastolic 2020-03-20 18:16:00 85 mm[Hg] [facility] (LUF/DAVID/SA) Body Temperature 2020-03-20 17:17:00 99.2 [degF] [facility] (LUF/DAVID/SA) Respiratory Rate 2020-03-20 17:17:00 19 /min [facility] (LUF/DAVID/SA) Height 2020-03-20 17:17:00 64 [in_i] [facility] (LUF/DAVID/SA) Weight 2020-03-20 17:17:00 106.9 kg [facility] (LUF/DAVID/SA) BMI (Body Mass 2020-03-20 17:17:00 40.7 kg/m2 [facility] (LUF/DAVID/SA) Respiratory Rate 2020-03-17 10:33:00 16 /min [facility] (LUF/DAVID/SA) Body Temperature 2020-03-17 07:54:00 97.9 [degF] [facility] (LUF/DAVID/SA) Pulse Rate 2020-03-17 07:54:00 83 /min [facility] (LUF/DAVID/SA) O2% BldC Oximetry 2020-03-17 07:54:00 96 % [facility] (LUF/DAVID/SA) BP Systolic 2020-03-17 07:54:00 107 mm[Hg] [facility] (LUF/DAVID/SA) BP Diastolic 2020-03-17 07:54:00 75 mm[Hg] [facility] (LUF/DAVID/SA) Weight 2020-03-17 00:09:00 105.6 kg [facility] (LUF/DAVID/SA) Heart Rate 2020-03-13 15:46:00 81 /min [facility] (LUF/DAVID/SA) Height 2020-03-13 15:31:00 64 [in_i] [facility] (LUF/DAVID/SA) Body Temperature 2020-03-02 15:20:00 98.6 [degF] [facility] (LUF/DAVID/SA) Pulse Rate 2020-03-02 15:20:00 86 /min [facility] (LUF/DAVID/SA) Respiratory Rate 2020-03-02 15:20:00 18 /min [facility] (LUF/DAVID/SA) O2% BldC Oximetry 2020-03-02 15:20:00 99 % [facility] (LUF/DAVID/SA) BP Systolic 2020-03-02 15:20:00 131 mm[Hg] [facility] (LUF/DAVID/SA) BP Diastolic 2020-03-02 15:20:00 85 mm[Hg] [facility] (LUF/DAVID/SA) Height 2020-03-01 10:54:00 64 [in_i] [facility] (LUF/DAVID/SA) Weight 2020-03-01 10:54:00 102 kg [facility] (LUF/DAVID/SA) BMI (Body Mass 2020-03-01 10:54:00 38.8 kg/m2 [facility] (LUF/DAVID/SA) Respiratory Rate 2020-02-27 07:47:00 16 /min [facility] (LUF/DAVID/SA) Body Temperature 2020-02-27 07:32:00 98.2 [degF] [facility] (LUF/DAVID/SA) Pulse Rate 2020-02-27 07:32:00 94 /min [facility] (LUF/DAVID/SA) O2% BldC Oximetry 2020-02-27 07:32:00 95 % [facility] (LUF/DAVID/SA) BP Systolic 2020-02-27 07:32:00 111 mm[Hg] [facility] (LUF/DAVID/SA) BP Diastolic 2020-02-27 07:32:00 56 mm[Hg] [facility] (LUF/DAVID/SA) Weight 2020-02-26 02:09:00 99.6 kg [facility] (LUF/DAVID/SA) Height 2020-02-25 10:03:00 64 [in_i] [facility] (LUF/DAVID/SA) Body Temperature 2020-02-25 00:52:00 97.9 [degF] [facility] (LUF/DAVID/SA) Pulse Rate 2020-02-25 00:52:00 118 /min [facility] (LUF/DAVID/SA) Respiratory Rate 2020-02-25 00:52:00 18 /min [facility] (LUF/DAVID/SA) O2% BldC Oximetry 2020-02-25 00:52:00 97 % [facility] (LUF/DAVID/SA) BP Systolic 2020-02-25 00:52:00 133 mm[Hg] [facility] (LUF/DAVID/SA) BP Diastolic 2020-02-25 00:52:00 67 mm[Hg] [facility] (LUF/DAVID/SA) Height 2020-02-25 00:47:00 64 [in_i] [facility] (LUF/DAVID/SA) Weight 2020-02-25 00:47:00 103.4 kg [facility] (LUF/DAVID/SA) BMI (Body Mass 2020-02-25 00:47:00 39.3 kg/m2 [facility] (LUF/DAVID/SA) Body Temperature 2020-01-25 11:32:00 98.4 [degF] [facility] (LUF/DAVID/SA) Pulse Rate 2020-01-25 11:32:00 81 /min [facility] (LUF/DAVID/SA) Respiratory Rate 2020-01-25 11:32:00 14 /min [facility] (LUF/DAVID/SA) O2% BldC Oximetry 2020-01-25 11:32:00 98 % [facility] (LUF/DAVID/SA) BP Systolic 2020-01-25 11:32:00 139 mm[Hg] [facility] (LUF/DAVID/SA) BP Diastolic 2020-01-25 11:32:00 89 mm[Hg] [facility] (LUF/DAVID/SA) Height 2020-01-25 11:32:00 64 [in_i] [facility] (LUF/DAVID/SA) Weight 2020-01-25 11:32:00 100.5 kg [facility] (LUF/DAVID/SA) BMI (Body Mass 2020-01-25 11:32:00 38.2 kg/m2 [facility] Index) [facility] (LUF/DAVID/SA) Heart Rate 2019-11-24 04:16:00 84 /min [facility] (LUF/DAVID/SA) Pulse Rate 2019-11-24 04:16:00 90 /min [facility] (LUF/DAVID/SA) Respiratory Rate 2019-11-24 04:16:00 26 /min [facility] (LUF/DAVID/SA) O2% BldC Oximetry 2019-11-24 04:16:00 98 % [facility] (LUF/DAVID/SA) BP Systolic 2019-11-24 04:16:00 106 mm[Hg] [facility] (LUF/DAVID/SA) BP Diastolic 2019-11-24 04:16:00 69 mm[Hg] [facility] (LUF/DAVID/SA) Body Temperature 2019-11-24 00:54:00 98.4 [degF] [facility] (F/DAVID/SA) Height 2019-11-24 00:49:00 65 [in_i] [facility] (F/DAVID/SA) Weight 2019-11-24 00:49:00 103 kg [facility] (LUF/DAVID/SA) BMI (Body Mass 2019-11-24 00:49:00 37.8 kg/m2 [facility]) [facility] (LUF/DAVID/SA) Heart Rate 2019-10-07 22:54:00 83 /min [facility] (LUF/DAVID/SA) Respiratory Rate 2019-10-07 22:54:00 14 /min [facility] (LUF/DAVID/SA) Pulse Rate 2019-10-07 22:31:00 89 /min [facility] (LUF/DAVID/SA) O2% BldC Oximetry 2019-10-07 22:31:00 97 % [facility] (LUF/DAVID/SA) BP Systolic 2019-10-07 21:16:00 127 mm[Hg] [facility] (LUF/DAVID/SA) BP Diastolic 2019-10-07 21:16:00 85 mm[Hg] [facility] (LUF/DAVID/SA) Height 2019-10-07 20:41:00 64 [in_i] [facility] (LUF/DAVID/SA) Weight 2019-10-07 20:41:00 100.2 kg [facility] (LUF/DAVID/SA) BMI (Body Mass 2019-10-07 20:41:00 38.1 kg/m2 [facility] Index) [facility] (LUF/DAVID/SA) Pulse Rate 2019-09-20 04:16:00 96 /min [facility] (LUF/DAVID/SA) Respiratory Rate 2019-09-20 04:16:00 9 /min [facility] (LUF/DAVID/SA) O2% BldC Oximetry 2019-09-20 04:16:00 96 % [facility] (LUF/DAVID/SA) BP Systolic 2019-09-20 04:16:00 97 mm[Hg] [facility] (LUF/DAVID/SA) BP Diastolic 2019-09-20 04:16:00 76 mm[Hg] [facility] (LUF/DAVID/SA) Body Temperature 2019-09-20 00:44:00 98 [degF] [facility] (LUF/DAVID/SA) Height 2019-09-20 00:39:00 65 [in_i] [facility] (LUF/DAVID/SA) Weight 2019-09-20 00:39:00 101.9 kg [facility] (LUF/DAVID/SA) BMI (Body Mass 2019-09-20 00:39:00 37.4 kg/m2 [facility] Index) [facility] (LUF/DAVID/SA) Pulse Rate 2019-08-17 04:31:00 81 /min [facility] (LUF/DAVID/SA) Respiratory Rate 2019-08-17 04:31:00 13 /min [facility] (LUF/DAVID/SA) O2% BldC Oximetry 2019-08-17 04:31:00 97 % [facility] (LUF/DAVID/SA) BP Systolic 2019-08-17 04:31:00 136 mm[Hg] [facility] (LUF/DAVID/SA) BP Diastolic 2019-08-17 04:31:00 75 mm[Hg] [facility] (LUF/DAVID/SA) Body Temperature 2019-08-17 02:23:00 97.6 [degF] [facility] (LUF/DAVID/SA) Height 2019-08-17 02:19:00 64 [in_i] [facility] (LUF/DAVID/SA) Weight 2019-08-17 02:19:00 100.6 kg [facility] (LUF/DAVID/SA) BMI (Body Mass 2019-08-17 02:19:00 38.3 kg/m2 [facility]) [facility] (LUF/DAVID/SA) Pulse Rate 2018-12-07 02:33:00 79 /min [facility] (LUF/DAVID/SA) Respiratory Rate 2018-12-07 02:33:00 15 /min [facility] (LUF/DAVID/SA) O2% BldC Oximetry 2018-12-07 02:33:00 96 % [facility] (LUF/DAVID/SA) BP Systolic 2018-12-07 02:33:00 120 mm[Hg] [facility] (LUF/DAVID/SA) BP Diastolic 2018-12-07 02:33:00 76 mm[Hg] [facility] (LUF/DAVID/SA) Body Temperature 2018-12-07 01:10:00 98.2 F [facility] (LUF/DAVID/SA) Height 2018-12-07 01:10:00 64 in [facility] (LUF/DAVID/SA) Weight Measured 2018-12-07 01:10:00 218.25 lbs [facility] (LUF/DAVID/SA) BMI (Body Mass 2018-12-07 01:10:00 37.7 kg/m2 [facility]) [facility] (LUF/DAVID/SA) Pulse Rate 2018-09-30 19:40:00 70 /min [facility] (LUF/DAVID/SA) Respiratory Rate 2018-09-30 19:40:00 21 /min [facility] (LUF/DAVID/SA) O2% BldC Oximetry 2018-09-30 19:40:00 100 % [facility] (LUF/DAVID/SA) BP Systolic 2018-09-30 19:40:00 124 mm[Hg] [facility] (LUF/DAVID/SA) BP Diastolic 2018-09-30 19:40:00 88 mm[Hg] [facility] (LUF/DAVID/SA) Body Temperature 2018-09-30 19:23:00 99.3 F [facility] (F/DAVID/SA) Height 2018-09-30 19:23:00 66 in [facility] (F/DAVID/SA) Weight Measured 2018-09-30 19:23:00 212.52 lbs [facility] (LUF/DAVID/SA) BMI (Body Mass 2018-09-30 19:23:00 34.5 kg/m2 [facility]) [facility] (LUF/DAVID/SA) Body Temperature 2018-09-01 13:59:00 98 F [facility] (F/DAVID/SA) Pulse Rate 2018-09-01 12:15:00 74 /min [facility] (F/DAVID/SA) Respiratory Rate 2018-09-01 12:15:00 16 /min [facility] (F/DAVID/SA) O2% BldC Oximetry 2018-09-01 12:15:00 98 % [facility] (F/DAVID/SA) BP Systolic 2018-09-01 12:15:00 131 mm[Hg] [facility] (LUF/DAVID/SA) BP Diastolic 2018-09-01 12:15:00 78 mm[Hg] [facility] (F/DAVID/SA) Height 2018-09-01 09:16:00 64 in [facility] (F/DAVID/SA) Weight Measured 2018-09-01 09:16:00 214.24 lbs Formerly [facility], [facility] (LUF/DAVID/SA) BMI (Body Mass 2018-09-01 09:16:00 37 kg/m2 [facility]) [facility] (F/DAVID/SA) Body Temperature 2018-05-13 10:58:00 99 F [facility]ly [facility], [facility] (LUF/DAVID/SA) Pulse Rate 2018-05-13 10:58:00 97 /min [facility] (LUF/DAVID/SA) Respiratory Rate 2018-05-13 10:58:00 18 /min [facility]ly [facility], [facility] (F/DAVID/SA) O2% BldC Oximetry 2018-05-13 10:58:00 98 % [facility]ly [facility], [facility] (LUF/DAVID/SA) BP Systolic 2018-05-13 10:58:00 131 mm[Hg] [facility] (LUF/DAVID/SA) BP Diastolic 2018-05-13 10:58:00 88 mm[Hg] [facility] (LUF/DAVID/SA) Height 2018-05-13 10:58:00 64 in [facility] (LUF/DAVID/SA) Weight Measured 2018-05-13 10:58:00 207.23 lbs Formerly [facility], [facility] (F/DAVID/SA) BMI (Body Mass 2018-05-13 10:58:00 35.8 [facility] (LUF/DAVID/SA) Body Temperature 2017-12-24 08:04:00 98.7 F [facility]ly [facility], [facility] (F/DAVID/SA) Respiratory Rate 2017-12-24 08:04:00 18 /min [facility]ly [facility], [facility] (F/DAVID/SA) O2% BldC Oximetry 2017-12-24 08:04:00 98 % [facility]ly [facility], [facility] (F/DAVID/SA) BP Systolic 2017-12-24 08:04:00 126 mm[Hg] [facility] (LUF/DAVID/SA) BP Diastolic 2017-12-24 08:04:00 86 mm[Hg] [facility] (LUF/DAVID/SA) Weight Measured 2017-12-24 08:04:00 207.23 lbs [facility]ly [facility], [facility] (F/DAVID/SA) Body Temperature 2017-06-20 23:28:00 97.4 F [facility]ly [facility], [facility] (F/DAVID/SA) Respiratory Rate 2017-06-20 23:28:00 20 /min [facility]ly [facility], [facility] (F/DAVID/SA) O2% BldC Oximetry 2017-06-20 23:28:00 99 % [facility] (LUF/DAVID/SA) BP Systolic 2017-06-20 23:28:00 107 mm[Hg] [facility] Stefanie [facility] (LUF/DAVID/SA) BP Diastolic 2017-06-20 23:28:00 76 mm[Hg] [facility] (LUF/DAVID/SA) Height 2017-06-20 23:28:00 64 in [facility] (LUF/DAVID/SA) Weight Measured 2017-06-20 23:28:00 217.15 lbs [facility] S janel [facility] (LUF/DAVID/SA) BMI (Body Mass 2017-06-20 23:28:[address] [facility] (LUF/DAVID/SA) Procedures Procedure Date / Time Performing Clinician Source Performed CT ABDOMEN PELVIS WO 2022-02-19 15:49:34 Trice Harris [facility] CONTRAST [facility] LIPASE 2022-02-19 14:26:00 Trice Harris [facility] COMP. METABOLIC PANEL 2022-02-19 14:26:00 Trice Harris [facility] ([id number]) [facility] CBC WITH DIFF 2022-02-19 14:26:00 [facility] 2022-02-19 14:26:00 [facility] CONSENT/REFUSAL FOR 2022-02-19 14:11:01 Doctor Unassigned, [facility] DIAGNOSIS AND TREATMENT [facility] POCT MOLECULAR FLU 2021-11-29 22:46:00 [facility] INS INFUS DEV LT BASILIC 2020-03-15 00:00:[address] [facility] VN PERQ [facility] (LUF/DAVID/SA) ULTRASONOGRAPHY LT UP EXT 2020-03-15 00:00:[address] [facility] VNS GUID [facility] (LUF/DAVID/SA) ROBOTIC LAP LYSIS OF 2020-03-02 12:56:[address] [facility] ADHESIONS [facility] (LUF/DAVID/SA) LAPAROSCOPY ENTEROLYSIS 2020-03-02 00:00:[address] [facility] SEPARATE PROCEDU [facility] (LUF/DAVID/SA) COLONOSCOPY FLX DX W/COLLJ 2020-02-26 00:00:[address] [facility] SPEC WHEN PFR [facility] (LUF/DAVID/SA) ROBOTIC RIGHT OOPHORECTOMY 2019-03-21 17:09:[address] [facility] LUF (Right) [facility] (LUF/DAVID/SA) CYSTO RGP STENT PLACEMENT 2015-04-20 14:01:[address] [facility] LUF [facility] (LUF/DAVID/SA) CYSTO RGP STENT PLACEMENT 2015-04-20 14:01:[address] [facility] LUF [facility] (LUF/DAVID/SA) [facility]ste[facility] (LUF/DAVID/SA) Total thyroidectomy [facility] (LUF/DAVID/SA) section [facility] (LUF/DAVID/SA) ABDOMINAL ADHESIONS [facility] REMOVED [facility] (LUF/DAVID/SA) Extracorporeal shockwave [facility] (LUF/DAVID/SA) MULTIPLE CYSTECTOMYS DONE [facility] (LUF/DAVID/SA) MULTIPLE CYSTECTOMYS DONE [facility] (LUF/DAVID/SA) ABDOMINAL ADHESIONS [facility] REMOVED [facility] (LUF/DAVID/SA) Appendectomy [facility] (LUF/DAVID/SA) Plan of Care Planned Activity Planned Date Details Comments Source Future Scheduled 2022-01-03 COVID-19 Vaccination [facility] [place] Test 06:07:35 (#1) [code = ANHID-19 [facility] (#1)] Center Future Scheduled 2022-01-03 COVID-19 Vaccination [facility] [place] Test 06:07:35 (#1) [code = COVID-19 [facility] Vaccination (#1)] Center Future Scheduled 2022-01-03 COVID-19 Vaccination [facility] [place] Test 06:07:35 (#1) [code = COVID-19 [facility] Vaccination (#1)] Center Future Scheduled 2021-12-22 COVID-19 Vaccination [facility] [place] Test 05:57:49 (#1) [code = COVID-19 And erson Cancer Vaccination (#1)] Center Encounters Start End Encounter Admission Attending Care Care Encounter Source Date/Time Date/Time Type Type Clinicians Facility Department ID 2021-07-27 Outpatient Nba, STLMLC STLMLC Common 08:27:02 Josué 0127 [facility] 2021-07-26 Outpatient Nba, STLMLC STLMLC Common 14:20:31 Josué 1203 [facility] 2021-07-26 Outpatient Nba, STLMLC STLMLC Common 14:05:52 Josué 1027 [facility] 2021-07-26 Outpatient Nba, STLMLC STLMLC Common 12:01:28 Josué 1103 [facility] 2021-07-26 Outpatient Nba, STLMLC STLMLC Common 11:56:42 Josué 1019 [facility] 2021-07-26 Outpatient Nba, STLMLC STLMLC Common 11:49:38 Josué 0928 [facility] 2021-07-26 Outpatient Nba, STLMLC STLMLC [id number] Common 11:48:02 Josué 0922 [facility] 2021-07-26 Outpatient Nba, STLMLC STLMLC Common 11:47:47 Josué 0921 [facility] 2021-07-26 Outpatient Nba, STLMLC STLMLC Common 11:42:15 Josué 0901 [facility] 2021-07-26 Outpatient Nba, STLMLC STLMLC Common 11:32:09 Josué 0720 [facility] 2022-02-19 2022-02-19 Emergency X [facility] ERT [id number] Univers 09:15:00 11:05:00 TRICE melo [facility] 2022-02-19 2022-02-19 Emergency [facility] [id number] [id number] Univers 09:15:00 11:05:00 Trice GAONA 350.1.13.10 i [facility] 4.2.7.2.[address] [facility] [id number] [place] [id number] [place] 2021-11-29 2021-11-29 [facility] 1.2.840.114 [id number] Univers 17:40:00 18:00:00 Care [facility] 350.1.13.10 it y of [place] 4.2.7.2.686 Jacques as SUE?BLEA [id number] [address] MEDICAL OFFICE BUILDING 2021-11-29 2021-11-29 [facility] [id number] Univers 17:40:00 17:40:00 AMEENA [facility] [place] [facility] 2021-10-26 2021-10-26 Office GEOVANI Blas, 1.2.840.1 [id number] Univers 09:45:00 10:47:06 Visit Praveen 56476.1.1 ity of 3.412.2.7 [place] .3.626199 MD Diaz [facility] 2021-10-26 2021-10-26 Office Shiva 1.2.840.1 [id number] Univers 09:45:00 10:47:06 Visit Praveen 43816.1.1 ity of 3.412.2.7 [place] .3.438094 MD Diaz [facility] 2021-10-26 2021-10-26 Travel 1.2.840.1 1.2.669.985 [id number] Univers 00:00:00 00:00:00 37928.1.1 350.1.13.41 ity of 3.412.2.7 [place].3.698 [place]3.460[place] 084.8 MD Diaz [facility] 2021-10-26 2021-10-26 Travel 1.2.840.1 1.2.508.498 [id number] Univers 00:00:00 00:00:00 45989.1.1 350.1.13.41 ity of 3.412.2.7 2.[place].3.698 [place]3.126[place] 084Emma8 MD Diaz [facility] 2021-10-15 2021-10-15 MALINGERER 1 SHAMAA, [facility] [id number] 22:25:00 22:45:00 CONSCIOUS EKTA [facility], Memor ia [address] (LUF/LI AVE, V/SA) [place] [address] 2021-10-15 2021-10-15 Inpatient [facility] 79e1 4a53-b [facility] 00:00:00 00:00:00 OTOE [id number] [facility], [id number] Memor ia [address] 097eaa l [address] (LUF/LI AVE, V/SA) [place] [address] 2021-10-15 2021-10-15 Inpatient [facility] 2f6e c8b8-[address] 00:00:00 00:00:00 OTOE [id number]-8 [facility], [id number] Memor ia [address] 66e57b l [place] (LUF/LI AVE, V/SA) [place] [address] 2021-08-07 2021-08-07 Emergency EM Clements, [facility] AMPARO [id number] [facility] 09:36:00 12:55:00 Olga 19 [facility] 2021-05-30 2021-05-30 ambulatory STLMLC STLMLC [id number] Common 00:00:00 00:00:00 [facility] 2021-05-29 2021-05-29 ambulatory STLMLC STLMLC [id number] Common 00:00:00 00:00:00 [facility] 2021-04-26 2021-04-26 Outpatient STLMLC STLMLC [id number] Common 00:00:00 00:00:00 [facility] 2021-04-23 2021-04-23 UNSPECIFIE 1 LONI DYKES EMD [id number] 00:46:00 02:08:00 Chin Dhaliwal ABDOMINAL Memori a PAIN l (LUF/LI V/SA) 2021-04-23 2021-04-23 Inpatient [facility] fb11 ce73-[address] 00:00:00 00:00:00 OTOE [id number] [facility], [id number]-[id number] Memor ia [address] a89c0d l [place] (LUF/LI AVE, V/[place]) [place] [address] 2021-04-23 2021-04-23 Inpatient [facility] 6aab [id number] 00:00:00 00:00:00 OTOE r9e-[id number] [facility], [id number] Memor ia [address] 822c23 l [place] (LUF/LI AVE, V/[place]) [place] [address] 2021-03-24 2021-03-24 ANXIETY 1 COTTON, [facility] [id number] [facility] [address] 10:25:00 12:27:00 [facility] Memor ia D [address] (LUF/LI AVE, V/SA) [place] [address] 2021-03-24 2021-03-24 Inpatient [facility] f871 cc2a-c [facility] 00:00:00 00:00:00 OTOE 9aa-[id number]-9 [facility], [id number] Memor ia [address] cf90e3 l [address] (LUF/LI AVE, V/SA) [place] [address] 2021-03-24 2021-03-24 Inpatient [facility] e945 ff19-c [facility] 00:00:00 00:00:00 OTOE [id number]-[id number] [facility], 88b-[id number] Memor ia [address] 683da2 l [place] (LUF/LI AVE, V/[place]) [place] [address] 2021-03-23 2021-03-23 Orders Adriana, 1.2.840.1 [id number] Univers 00:00:00 00:00:00 Only Viktoriya Charlton 74200.1.1 ity of 3.412.2.7 [place] .3.161610 .8 [facility] 2021-03-23 2021-03-23 Orders [facility], 1.2.840.1 [id number] Univers 00:00:00 00:00:00 Only Viktoriya Charlton 40422.1.1 ity of 3.412.2.7 [place] .3.209962 MD Carter8 [facility] 2021-03-10 2021-03-10 [facility] [id number] [facility] [address] 10:29:00 13:50:00 [facility] [address] (LUF/LI A[address], V/SA) [place] [address] 2021-03-10 2021-03-10 Inpatient [facility] 16e7 [id number] [facility] 00:00:00 00:00:00 OTOE f7n-0715-3 [facility], [id number]-[id number] Memor ia [address] 8ebb0b l [place] (LUF/LI AVE, V/SA) [place] [address] 2021-03-10 2021-03-10 Inpatient [facility] 518c 3339-c [facility] 00:00:00 00:00:00 OTOE p76-3kw0-1 [facility], q8t-[id number] Memor ia [address] [id number] l [place] (LUF/LI AVE, V/[place]) [place] [address] 2021-02-23 2021-02-23 RIGHT E [facility] [id number] [facility] [address] 08:15:00 12:44:00 [facility], Memoria PAIN [address] (LUF/LI AVE, V/SA) [place] [address] 2021-02-23 2021-02-23 Inpatient [facility] 89b5 d1de-[address] 00:00:00 00:00:00 OTOE 09f-406d-9 [facility], 74d-[id number] Memor ia [address] e8fcf1 l [place] (LUF/LI AVE, V/[place]) [place] [address] 2021-02-23 2021-02-23 Inpatient [facility] OF [facility] OF [place] [id number] e20f-[address] 00:00:00 00:00:00 OTOE 1ef-425c-a [facility], [id number] Memor ia [address] 1655de l [address] (LUF/LI AVE, V/SA) [place] [address] 2021-01-10 2021-01-10 CALCCINDY DYKES, [facility] [place] [id number] [facility] 00:21:00 03:06:00 OF KIDNEY SETH OTOE Luke s [place], Memoria [address] (LUF/LI A[address], V/SA) [place] [address] 2021-01-10 2021-01-10 Inpatient [facility] 2205[facility]c [facility] 00:00:00 00:00:00 OTOE y58-0x30-g [facility], 72a-[id number] Memor ia [address] 3fb6a8 l [place] (LUF/LI AVE, V/SA) [place] [address] 2021-01-10 2021-01-10 Inpatient [facility] fe83-e [facility] 00:00:00 00:00:00 OTOE ff6-4d87-9 [facility], [id number] Memor ia [address] e09ed4 l [place] (LUF/LI AVE, V/SA) [place] [address] 2020-12-27 2020-12-27 Emergency [facility] Zarina [id number] [address] [place] [address] 00:00:00 00:00:[address] 2020-12-22 2020-12-22 Outpatient 3 LONI MURILLO TIC [id number] 09:00:00 09:00:00 SKYE Dhaliwal Memoria l (LUF/LI V/SA) 2020-12-13 2020-12-13 Emergency EM SHEY Perez [facility] [id number] [facility] 01:53:00 06:36:00 Tangela Stern [facility] 2020-12-12 2020-12-12 RIGHT Jake COTTON, [facility] [id number] 12:33:00 14:00:00 [facility] [place], Memoria PAIN [address] (LUF/LI A[address], V/SA) [place] [address] 2020-12-12 2020-12-12 Inpatient [facility] e2c0 cb47-b [facility] 00:00:00 00:00:00 OTOE 82f-45d0-a [facility], [id number]-[id number] Memor ia [address] x6q709 l [place] (LUF/LI AVE, V/SA) [place] [address] 2020-12-12 2020-12-12 Inpatient [facility] 43ed f7fe-[address] 00:00:00 00:00:00 OTOE q59-62lq-m [facility], [id number] Memor ia [address] 70ade3 l [address] (LUF/LI A[place], V/[place]) [place] [address] 2020-12-08 2020-12-08 UNSPECIFIE Jake SOTOMAYOR, [facility] [id number] [facility] [address] 09:44:00 12:26:00 D WYATT [facility]AL [place] [address] (LUF/LI A[address], V/SA) [place] [address] 2020-12-08 2020-12-08 Inpatient [facility] 6a3f a794-a [facility] 00:00:00 00:00:00 OTOE [id number] [facility], [id number] Memor ia [address] 9973a7 l [place] (LUF/LI AVE, V/SA) [place] [address] 2020-11-25 2020-11-25 UNSPECIFIE [facility] [id number] 00:13:00 00:30:00 D [facility]AL [place] PAIN [address] (LUF/LI A[address], V/SA) [place] [address] 2020-11-25 2020-11-25 Inpatient [facility] 3041 db6a-[address] 00:00:00 00:00:00 OTOE fb6-4754-b [facility], [id number]-wyb718 Memor ia [address] 841f4f l [place] (LUF/LI AVE, V/SA) [place] [address] 2020-11-25 2020-11-25 Inpatient [facility] a3eb ed11-a [facility] 00:00:00 00:00:00 OTOE [id number] [facility], [id number] Memor ia [address] ea5dda l [place] (LUF/LI AVE, V/[place]) [place] [address] 2020-11-21 2020-11-21 ENDOMETRIO 1 [facility] [id number] [facility] [address] 07:14:00 09:53:00 SIS [facility] UNSPECIFIE [place], Memor ia D [address] (LUF/LI A[address], V/SA) [facility] [place] [address] 2020-11-21 2020-11-21 Inpatient [facility] 90f0 [id number] [facility] [address] 00:00:00 00:00:00 OTOE 6p3-04mu-6 [facility], 4bb-5eeded Memor ia [address] [id number] l [address] (LUF/LI AVE, V/[place]) [place] [address] 2020-11-21 2020-11-21 Inpatient [facility] 3b21 9c7a-[address] [facility] [address] 00:00:00 00:00:00 OTOE 30a-405e-8 [facility], [id number] Memor ia [address] 3040c4 l [place] (LUF/LI AVE, V/[place]) [place] [address] 2020-11-14 2020-11-14 GASTRITIS 1 COTTONSTStefanie EMD [id number] 09:27:00 14:37:00 UNS REHAN Dhaliwal WITHOUT Memoria BLEEDING l (LUF/LI V/SA) 2020-11-14 2020-11-14 Inpatient [facility] d4fe d3e2-[address] 00:00:00 00:00:00 OTOE 3cf-[id number]-a [facility], [id number]-[id number] Memor ia [address] 2d56cc l [address] (LUF/LI AVE, V/SA) [place] [address] 2020-11-14 2020-11-14 Inpatient [facility] 324e 65b9-b [facility] 00:00:00 00:00:00 OTOE 464-403c-8 [facility], [id number] Memor ia [address] u9684i l [place] (LUF/LI AVE, V/SA) [place] [address] 2020-11-08 2020-11-08 OTHER E COTTON, [facility] [id number] [facility] [address] 08:04:00 13:13:00 CHRONIC REHAN [facility] [address] (LUF/LI A[address], V/SA) [place], [place] [address] 2020-11-08 2020-11-08 Inpatient [facility] 8079 b52c-c [facility] 00:00:00 00:00:00 OTOE ed8-4ae3-8 [facility], [id number] Memor ia [address] cf6d84 l [place] (LUF/LI A[address], V/SA) [place], [place] [address] 2020-11-08 2020-11-08 Inpatient [facility] 0f07 dc59-[address] [facility] [address] 00:00:00 00:00:00 OTOE 292-4184-b [facility], [id number]-[id number] Memor ia [address] d1bfd4 l [place] (LUF/LI AVE, V/SA) [place], [place] [address] 2020-11-08 2020-11-08 Inpatient [facility] 40b4 e14c-[address] 00:00:00 00:00:00 OTOE 784-40e4-9 [facility], [id number] Memor ia [address] 29ea9a l [place] (LUF/LI A[address], V/SA) [place] [address] 2020-11-01 2020-11-01 NAUSEA E WANDA, [facility] [id number] 00:27:00 03:55:00 WITH [facility] [place] [facility] [place], Memoria UNSPECIFIE [address] D [address] (LUF/LI A[address], V/SA) [place] [address] 2020-11-01 2020-11-01 Inpatient [facility] 1ec3 64c1-c [facility] 00:00:00 00:00:00 OTOE d71-2eur-n [facility], 85a-d9800i Memor ia [address] [id number] l [place] (LUF/LI A[address], V/SA) [place] [address] 2020-11-01 2020-11-01 Inpatient [facility] 79c0 b023-[address] 00:00:00 00:00:00 OTOE 0q3-280v-p [facility], [id number] Memor ia [address] 783eec l [place] (LUF/LI A[address], V/SA) [place] [address] 2020-10-04 2020-10-05 OTHER E RODRICK, [facility] [id number] 23:32:00 01:00:00 [facility]IC [facility]AN [facility] [place] [address] ([address]F/LI A[address], V/[place]) [place] [address] 2020-10-04 2020-10-04 Inpatient [facility] b016 f3f5-a [facility] 00:00:00 00:00:00 OTOE 4i3-8o8y-q [facility], [id number] Memor ia [address] bb93d3 l [place] (LUF/LI A[place], V/[place]) [place] [address] 2020-10-04 2020-10-04 Inpatient [facility] ea96 0c7a-[address] 00:00:00 00:00:00 OTOE 25c-4997-b [facility], [id number] Memor ia [address] 1f27e6 l [place] (LUF/LI A[address], V/SA) [place] [address] 2020-09-18 2020-09-18 OTHER E [facility] [id number] 01:00:00 04:44:00 [facility]IC [facility] [place], Memoria [address] ([address]F/LI A[address], V/SA) [place] [address] 2020-09-18 2020-09-18 Inpatient [facility] b80a 7ee5-[address] 00:00:00 00:00:00 OTOE 9m2-333v-6 [facility], [id number] Memor ia [address] [id number] l [place] (LUF/LI A[address], V/SA) [place] [address] 2020-09-18 2020-09-18 Inpatient [facility] 1a33 0198-a [facility] 00:00:00 00:00:00 OTOE 921-44cf-8 [facility], [id number] Memor ia [address] 734693 l [place] ([address]F/LI A[address], V/SA) [place] [address] 2020-09-12 2020-09-12 ENDOMETRIO E RODRICK, [facility] [id number] [facility] 00:46:00 02:38:00 SIS [facility]AN [facility] UNSPECIFIE [place], Memor ia D [address] (LUF/LI A[address], V/SA) [place] [address] 2020-09-12 2020-09-12 Inpatient [facility] 726d 153b-a [facility] 00:00:00 00:00:00 OTOE o7d-[id number] [facility], [id number] Memor ia [address] 2913af l [place] (LUF/LI A[address], V/SA) [place] [address] 2020-09-12 2020-09-12 Inpatient [facility] 9a2d b59c-c [facility] 00:00:00 00:00:00 OTOE 607-4f36-8 [facility], [id number] Memor ia [address] 655cce l [place] ([address]F/[address], V/SA) [place] [address] 2020-08-22 2020-08-22 OTHER E RODRICK, [facility] [id number] 01:13:00 03:24:00 CHRONIC [facility], [facility] [address] ([address], V/SA) [place], [place] [address] 2020-08-22 2020-08-22 Inpatient [facility] [id number] [facility] 00:00:00 00:00:00 OTOE [id number] [facility], [id number] [facility] [address] [id number] l [place] ([address]/LI [address], V/[place]) [place] [address] 2020-08-22 2020-08-22 Inpatient [facility] [id number] [facility] 00:[facility] 00:00:00 OTOE [id number] [id number] [facility] [address] [id number] l [place] ([address], V/SA) [place] [address] 2020-08-06 2020-08-06 Inpatient E RODRICK, [facility] [id number] [facility] [address] 01:21:00 03:35:00 [facility] [address] ([address], V/SA) [place] [address] 2020-08-06 2020-08-06 Inpatient [facility] [id number] [facility] 00:00:00 00:00:00 OTOE [id number] [facility], [id number] [facility] [address] [id number] l [place] ([address], V/SA) [place] [address] 2020-07-19 2020-07-19 RIGHT E YURY, [facility] [id number] [facility] [address] 07:50:00 11:20:00 LOWER [facility], [facility] PAIN [address] ([address], V/SA) [place] [address] 2020-07-19 2020-07-19 Inpatient [facility] [id number] [facility] 00:[facility]:00 00:00:00 OTOE [id number] [facility], [id number] [facility] [address] [id number] l [address] ([address], V/[place]) [place] [address] 2020-07-19 2020-07-19 Inpatient [facility] [id number] [facility] [address] 00:00:00 00:00:00 OTOE [id number] [facility], [id number] [facility] [address] [id number] l [place] ([address], V/SA) [place] [address] 2020-07-05 2020-07-05 OTHER E SANALETA, [facility] [id number] [facility] [address] 02:42:00 05:00:00 CHRONIC JUAN [facility], Memoria [address] ([address], V/SA) [place] [address] 2020-07-05 2020-07-05 Inpatient [facility] [id number] [facility] 00:00:00 00:00:00 OTOE [id number] [facility], [id number] [facility] [address] [id number] [address] ([address], V/SA) [place] [address] 2020-07-05 2020-07-05 Inpatient [facility] [id number] [facility] 00:00:00 00:00:00 OTOE [id number] [facility], [id number] [facility] [address] [id number] l [place] ([address], V/SA) [place] [address] 2020-06-10 2020-06-10 Outpatient STLMLC STLMLC [id number] Common 00:00:00 00:00:00 [facility] 2020-06-07 2020-06-07 Inpatient 1 YURY, [facility] [id number] [facility] [address] 12:56:00 19:04:00 REHAN [facility], Memoria [address] ([address], V/SA) [place] [address] 2020-06-07 2020-06-07 Inpatient [facility] [id number] [facility] 00:[facility]:00 00:00:00 OTOE [id number] [facility], [id number] [facility] [address] [id number] l [address] ([address], V/SA) [place] [address] 2020-05-31 2020-05-31 Inpatient E COTTON, [facility] [place] [id number] 09:31:00 14:13:00 [facility] [address] ([address], V/SA) [place] [address] 2020-05-10 2020-05-10 Outpatient STLMLC STLMLC [id number] Common 00:00:00 00:00:00 [facility] 2020-05-09 2020-05-09 Outpatient STLMLC STLMLC [id number] Common 00:00:00 00:00:00 [facility] 2020-05-05 2020-05-05 Outpatient STLMLC STLMLC [id number] Common 00:00:00 00:00:00 [facility] 2020-05-02 2020-05-02 Outpatient STLMLC STLMLC [id number] Common 00:00:00 00:00:00 [facility] 2020-05-02 2020-05-02 Outpatient STLMLC STLMLC [id number] Common 00:00:00 00:00:00 [facility] 2020-04-29 2020-04-29 Outpatient STLMLC STLMLC [id number] Common 00:00:00 00:00:00 [facility] 2020-04-25 2020-04-25 LEFT LOWER E [facility] [id number] 16:46:00 21:30:00 [facility] [address] ([address], V/SA) [place] [address] 2020-04-22 2020-04-22 Outpatient STLMLC STLMLC [id number] Common 00:00:00 00:00:00 [facility] 2020-04-20 2020-04-20 PROC&TX [facility] [id number] 15:39:00 16:03:00 NOT OTOE Isra CARRIED [place], [facility] OUT PT [address] MALDONADO TYS[address] (TIERA/YUKI WEBB, V/SA) OLAMIDEJULIÁN ANTONIO [address] 2020-04-20 2020-04-20 Outpatient STLMLC STLMLC [id number] Common 00:00:00 00:00:00 [facility] 2020-04-20 2020-04-20 Outpatient STLMLC STLMLC [id number] Common 00:00:00 00:00:00 [facility] 2020-04-15 2020-04-15 Outpatient STLMLC STLMLC [id number] Common 00:00:00 00:00:00 [facility] 2020-04-13 2020-04-13 Outpatient STLMLC STLMLC [id number] Common 00:00:00 00:00:00 [facility] 2020-04-12 2020-04-12 Outpatient STLMLC STLMLC [id number] Common 00:00:00 00:00:00 [facility] 2020-04-11 2020-04-11 Outpatient STLMLC STLMLC [id number] Common 00:00:00 00:00:00 [facility] 2020-04-08 2020-04-08 Outpatient STLMLC STLMLC [id number] Common 00:00:00 00:00:00 [facility] 2020-04-06 2020-04-06 Outpatient STLMLC STLMLC [id number] Common 00:00:00 00:00:00 [facility] 2020-04-04 2020-04-04 Outpatient STLMLC STLMLC [id number] Common 00:00:00 00:00:00 [facility] 2020-03-31 2020-03-31 Outpatient STLMLC STLMLC [id number] Common 00:00:00 00:00:00 [facility] 2020-03-29 2020-03-29 Outpatient GEOVANI BLAS MDA MDA [id number] 00:00:00 00:00:00 PRAVEEN payton 2020-03-29 2020-03-29 Outpatient STLMLC STLMLC [id number] Common 00:00:00 00:00:00 [facility] 2020-03-28 2020-03-28 Outpatient STLMLC STLMLC [id number] Common 00:00:00 00:00:00 [facility] 2020-03-22 2020-03-22 Outpatient STLMLC STLMLC [id number] Common 00:00:00 00:00:00 [facility] 2020-03-21 2020-03-21 Outpatient STLMLC STLMLC [id number] Common 00:00:00 00:00:00 [facility] 2020-03-20 2020-03-20 FEDE COTTON, [facility] [place] [id number] [facility] [address] 17:08:00 22:56:00 ABDOMINAL REHAN OTOE Lu s PAIN [facility] UNSPECIFIE [address] ([address]F/LI A[address], V/SA) JULIÁN ROSA [address] 2020-03-14 2020-03-17 CELLULITIS E TRUX, [facility] [place] [id number] 14:54:00 11:30:00 OF FAITH [facility] s ABDOMINAL [facility] a WALL [address] ([address], V/SA) JULIÁN ROSA [address] 2020-03-03 2020-03-03 [facility] [id number] Common 13:33:00 13:33:00 [facility] Health I [facility] 2020-03-02 2020-03-02 FE RYAN WOLFE, [facility] [place] [id number] 05:58:00 15:35:00 PERITON LIZBETH [facility] POSTINFECT [address] ([address], V/SA) JULIÁN ROSA [address] 2020-03-02 2020-03-02 Outpatient STLMLC STLC [id number] Common 00:00:00 00:00:00 [facility] 2020-03-01 2020-03-01 Outpatient [facility] [id number] Common 09:15:00 09:15:00 Clinics [facility] 2020-02-29 2020-02-29 Outpatient [facility] [id number] Common 09:30:00 09:30:00 [facility] 2020-02-25 2020-02-27 LOWER E YURY, [facility] [place] [id number] [facility] 13:21:00 12:09:00 ABDOMINAL REHAN [facility] [place] UNSPECIFIE [address] ([address]F/LI [address], V/SA) [place] [address] 2020-02-25 2020-02-25 UNSPECIFIE E RODRICK, [facility] [id number] [facility] 00:40:00 05:00:00 D JUAN [facility] ABDOMINAL [place], Memori a PAIN [address] ([address], V/SA) [place] [address] 2020-01-25 2020-01-25 LOW BACK 1 YURY, [facility] 0100 [id number] [facility] 11:28:00 13:15:00 PAIN REHAN [facility] [address] ([address], V/SA) [place] [address] 2020-01-18 2020-01-18 Outpatient [facility] [id number] Common 11:45:00 11:45:00 [facility] 2019-12-09 2019-12-09 OTHER E [facility] [id number] [facility] 03:03:00 05:08:00 CHRONIC [facility]IN [place] [address] ([address], V/SA) [place] [address] 2019-11-24 2019-11-24 UNSPECIFIE E [facility] [id number] [facility] [address] 00:31:00 05:30:00 D [facility] ABDOMINAL [place] [address] ([address], V/SA) [place] [address] 2019-10-07 2019-10-07 RIGHT 1 YURY, [facility] [place] [id number] 20:35:00 23:10:00 LOWER REHAN OTOE [facility] [place], [facility]oria PAIN [address] ([address], V/SA) [place] [address] 2019-09-20 2019-09-20 RIGHT 1 YURY, [facility] [place] [id number] [facility] [address] 00:33:00 04:23:00 LOWER REHAN OTOE [facility] [place] [address] ([address], V/SA) [place] [address] 2019-08-17 2019-08-17 UNSPECIFIE 1 RIVERA, [facility] [place] [id number] 02:18:00 04:45:00 D FAITH OTOE Luke s ABDOMINAL [place], [facility] [address] ([address], V/SA) [place] [address] 2019-04-22 2019-04-22 [facility] [id number] Common 12:03:00 12:03:[address] [facility] 2019-04-14 2019-04-14 [facility] [id number] Common 16:12:00 16:12:00 [facility] 2019-04-06 2019-04-06 [facility] [id number] Common 12:16:00 12:16:00 [facility] 2019-03-31 2019-03-31 [facility] [id number] Common 14:00:00 14:00:00 [facility] 2018-12-07 2018-12-07 UNSPECIFIE 1 QUINTIN BRITO [facility] [id number] [facility] 01:06:00 04:45:00 D OVARIAN OTOE Luke s CYST RIGHT [place], [facility] SIDE [address] ([address], V/SA) [place] [address] 2018-10-29 2018-10-29 N-PRSS CHR JAY, [facility] [id number] [facility] 06:59:00 23:59:00 ULCR SKIN MIKY [facility] [address] ([address], V/SA) [facility] [place] [address] 2018-10-22 2018-10-22 N-PRSS CHR BLAKESTAD, [facility] [id number] [facility] 07:20:00 23:59:00 ULCR SKIN MIKY [facility] [address] ([address], V/SA) [place] [address] 2018-10-15 2018-10-15 N-PRSS CHR O BLAKEST[place], [facility] [id number] [facility] 07:08:00 23:59:00 ULCR SKIN MIKY [facility] [address] ([address], V/SA) [place] [address] 2018-09-30 2018-10-01 INFCT FOL 1 SHABNAM, [facility] [id number] [facility] 18:46:00 01:05:00 PRC SUPF DIMAS [facility] SIT INIT [address] ([address], V/SA) [place] [address] 2018-09-01 2018-09-01 OTH 1 WANDA, [facility] [place] [id number] [facility] [address] 09:12:00 14:00:00 [facility] TUBE&BRD [address] ([address]F/LI A[address], V/SA) [place] [address] 2018-05-13 2018-05-13 Inpatient 1 WANDA, [facility] [place] [id number] [facility] [address] 10:52:00 13:46:00 CLEMENT [facility] [address] ([address], V/SA) [place] [address] 2017-12-24 2017-12-24 UNSPECIFIE 1 QUINTIN BRITO [facility] [id number] [facility] 07:51:00 13:52:00 D OVARIAN [facility] CYST RIGHT [place], [facility] SIDE [address] ([address], V/SA) [place] [address] 2017-06-20 2017-06-21 HYDRONPHRO 1 RODRICK, [facility] [id number] [facility] [address] 23:01:00 03:55:00 S JUAN [facility] RENL&URETR [place], Memor ia L CALCUL [address] ([address]F/LI A[address], V/SA) [place] [address] 2017-05-13 2017-05-13 OTHER 3 MERLE, [place] 012091 [address] [facility] [address] 15:40:00 23:59:00 FATIGUE ASA [facility], Memoria [address] ([address], V/SA) [place] [address] Results Test Description Test Time Test Comments Results Result Comments Source COMP. METABOLIC PANEL (95532) 2022-02-19 14:56:05 Test Item Value Reference Range Interpretation Comme nts NA (test code = 6986174457) 137 mmol/L 135-145 K (test code = 3528867482) 4.2 mmol/L 3.5-5 CL (test code = 4742179131) 108 mmol/L 98-108 CO2 TOTAL (test code = 3001013311) 19 mmol/L 23-31 L AGAP (test code = 6874984262) 2-16 BUN (test code = 3548202834) 14 mg/dL 7-23 GLUCOSE (test code = 7822666279) 133 mg/dL 70-110 H CREATININE (test code = 0.56 mg/dL 0.5-1.04 0376453391) TOTAL BILI (test code = 0.4 mg/dL 0.1-1.0 3331127219) CALCIUM (test code = 1479774511) 8.9 mg/dL 8.6-10.6 T PROTEIN (test code = 8776535904) 6.5 g/dL 6.3-8.2 ALBUMIN (test code = 1179334917) 4.0 g/dL 3.5-5 ALK PHOS (test code = 7863864597) 84 U/L 34-122 ALTv (test code = 1742-6) 23 U/L 5-35 AST(SGOT) (test code = 5251488242) 24 U/L 13-40 eGFR (test code = 3505949282) mL/min/1.73m2 RENZO (test code = RENZO) Association of Glomerular Filtration Rate (GFR) and Staging of Kidney Disease* + +-------- + ------+| GFR (mL/min/1.73 m2) ?| With Kidney Damage ?| ?Without Kidney Damage+ +-- + +| ?>90 ?| ?Stage one ?| ? Normal ?+ +------- + -------+| ?60-89 ?| ?Stage two ?| ? Decreased GFR ? + +-------- + ------+| ?30-59 ?| ?Stage three ?| ? Stage three ? + +-------- + ------+| ?15-29 ?| ?Stage four ? | ? Stage four ?+ +------- + -------+| ?<15 (or dialysis) ? ?| ?Stage five ? | ? Stage five ?+ +------- + -------+ *Each stage assumes the associated GFR level has been in effect for at least three months. ?Stages 1 to 5, with or without kidney disease, indicate chronic kidney disease. Notes: Determination of stages one and two (with eGFR >59mL/min/1.73 m2) requires estimation of kidney damage for at least three months as defined by structural or functional abnormalities of the kidney, manifested by either:Pathological abnormalities or Markers of kidney damage (including abnormalities in the composition of the blood or urine or abnormalities in imaging tests). Lab Interpretation (test code = Abnormal 84314-0) [facility] 14:55:44 Test Item Value Reference Range Interpretation Comments LIPASE (test code = 3728671014) 81 U/L 0-220 Lab Interpretation (test code = Normal 27414-0) [facility] WITH [id number] 14:36:26 Test Item Value Reference Range Interpretation Comments WBC (test code = See_Comment [Automated 0790-2) message] The sy stem which generated this result transmitted reference range : 4.30 - 11.10 10*3/?L. The reference range was not used to interpret this result as normal/abnormal . RBC (test code = See_Comment [Automated 789-8) message] The sy stem which generated this result transmitted reference range : 3.93 - 5.25 10*6/?L. The reference range was not used to interpret this result as normal/abnormal . HGB (test code = 12.5 g/dL 11.6-15 718-7) HCT (test code = 37.5 % 35.7-45.2 4544-3) MCV (test code = 86.6 fL 80.6-95.5 787-2) MCH (test code = 28.9 pg 25.9-32.8 785-6) MCHC (test code = 33.3 g/dL 31.6-35.1 786-4) RDW-SD (test code = 43.9 fL 39-49.9 70560-3) RDW-CV (test code = 13.7 % 12-15.5 788-0) PLT (test code = See_Comment [Automated 777-3) message] The sy stem which generated this result transmitted reference range : 166 - 358 10*3/ ?L. The reference r bruce was not used to interpret this result as normal/abnormal . MPV (test code = 8.5 fL 9.5-12.9 L 14821-7) NRBC/100 WBC (test See_Comment [Automat ed code = 3939375622) message] The system which generated this result transmitted reference range : 0.0 - 10.0 /100 WBCs. The refer ence range was not u sed to interpret th is result as normal/abnormal . NRBC x10^3 (test code See_Comment [Auto mated = 9924382822) message] The s ystem which generated this result transmitted reference range : 10*3/?L. The reference range was not used to interpret this result as normal/abnormal . GRAN MAT (NEUT) % 58.7 % (test code = 770-8) IMM GRAN % (test code 1.10 % = 4138743981) LYMPH % (test code = 31.6 % 736-9) MONO % (test code = 6.8 % 5905-5) EOS % (test code = 1.4 % 713-8) BASO % (test code = 0.4 % 706-2) GRAN MAT x10^3(ANC) 3.30 10*3/uL 1.88-7.09 (test code = 9976971312) IMM GRAN x10^3 (test 0.06 10*3/uL 0-0.06 code = 7998351985) LYMPH x10^3 (test code 1.77 10*3/uL 1.32-3.29 = 731-0) MONO x10^3 (test code 0.38 10*3/uL 0.33-0.92 = 742-7) EOS x10^3 (test code = 0.08 10*3/uL 0.03-0.39 711-2) BASO x10^3 (test code 0.01-0.07 = 704-7) Lab Interpretation Abnormal (test code = 38269-6) [facility] [id number] 22:58:14 Test Item Value Reference Range Interpretation Comments POCT Molecular FluA (test code = Negative Negative 05931-0) POCT Molecular FluB (test code = Negative Negative 28616-9) Lab Interpretation (test code = Normal 00302-4) [facility] PANEL (LIVER)2021-10-16 13:57:00 Test Item Value [...] (test code = 0.2 mg/dl 0.0-1.1 IBIL) [id number] 13:57:00 Test Item Value Reference Range Interpretation Comments Lipase (test code = LIPA) 114 U/L 73-393 AMYLASE, [id number] 13:57:00 Test Item Value Reference Range Interpretation Comments Amylase (test code = AMYL) 51 U/L 25-115 STAT LAB CHEM [id number] 22:45:00 Test Item Value Reference Range Interpretation [...] 24.0-29.0 L STAT LAB CBC WITH AUTO [id number] 22:43:00 Test Item Value Reference Range Interpretation [...] = IG%) 0.2 % 0.0-0.4 HEPATIC FUNCTION [id number] 13:03:00 Test Item Value Reference Range Interpretation [...] 96 Unit/L 45-117 N code = ALKP) [id number] 13:03:00 Test Item Value Reference Range Interpretation Comments LIPASE (test code = LIP) 83 Unit/L 114-286 L BASIC METABOLIC [id number] 13:03:00 Test Item Value Reference Range Interpretation [...] 8.5-10.1 N UA RFLX MICR CULT IF [id number] 12:44:00 Test Item Value Reference Range Interpretation [...] OF URINE: CLEAN CATCH- CT ABD PELVIS [id number] 12:27:00 [facility] 1985 Sex: F Name: LAUREN BETH [facility] : 1985 Age/S: 36 / F [address] [address] Unit #: [id number]: Julián Holcomb [address] Phys: Marco Hilton NP Acct: [id number] Dis Date: Status: REG ER PHONE #: [phone] Exam Date: 08/07/20213 FAX #: Reason: LLQ ABD PAIN EXAMS: CPT: [id number] CT ABD PELVIS W/CONT 80432 EXAM: CT ABDOMEN AND PELVIS WITH CONTRAST. [...] effusion is identified. The liver, spleen, pancreas, andadrenal glands is unremarkable. No focal liver lesions [...] IVC is normal. The abdominal aorta is normalin course and caliber. There has been prior hysterectomy. No adnexal mass. No acute osseous abnormality is identified. IMPRESSION: No acute abnormality in the abdomen or pelvis. No bowel obstruction. LOCATION: B2 This CT exam was performed according to our departmental dose optimization program, whichincludes automated exposure control, adjustment of the mA and or kV according to patient size and/oruse of iterative reconstruction technique. PAGE 1 Signed Report (CONTINUED) Name: LAUREN BETH [facility] : 1985 Age/S: 36 / F [address] [facility] Unit #: [id number] Loc: [place] [address] Phys: Marco Hilton NP Acct: [id number] Dis Date: Status: REG ER PHONE #: [phone] Exam Date: 08/07/2021 1225 FAX #: Reason: LLQ ABD PAIN EXAMS: CPT: [id number] CT ABD PELVIS W/CONT 44734 <Continued> at 1227 Reported and signed by: Alma Cartwright M.D. CC: Olga Clements DO; Marco Hilton NP Technologist:RT Danyelle(R) CTDI: DLP: Trnscb Date/Time: 08/07/2021 (1227) VereniceMD16 Orig Print D/T: S: 08/07/2021 (9387) PAGE 2 Signed ReportCBC W/AUTO [id number] 12:23:00 Test Item Value Reference Range Interpretation [...] Reagents f or BD MAX System, the [employer] Fire Covid-19, and janel bolden Cepheid Covid-1 9 is for in vitro [...] contact the Coronavirus [facility] at [phone]. [id number] 12:37:00 Test Item Value Reference Range Interpretation [...] 0.5-1.3 code = CREA) EGFR if >60 [place]ian (test code mL/min/1.73m\\ = EGFRAA) S\\2 EGFR if Non- >60 Estimate d Glomerular [place]ian (test code mL/min/1.73m\\ Filtrat ion Rate (eGFR) = EGFRNA) S\\2 Reference Inter vals Decision Points for 18 years and older and average body ma ss: >= 60 Does not exc lude kidney disease. 30 - 59 Suggests mod erate chronic kidney disease and indicates the need for furthe r investigation including asses sment of proteinuria and cardiovascular factors. < 30 Usually indicates a nee d for referral for assessment and management of c hronic kidney failure. STAT LAB [id number] 12:11:00 Test Item Value Reference Range Interpretation [...] includes the presence of clinical history suggest melvin of Acute Coronary Syndrome (ACS) and a max imum concentration o f cardiac troponin exceed ing the 99th percentile of a normal referenc e population [upp er reference limit (URL)] on at least one oc casion during the firs t 24 hours after the clini felipa event. PT AND [id number] 12:09:00 Test Item Value Reference Range Interpretation Comments Protime (test code 9.5 seconds 9.5-12.1 = PT) INR (test code = 0.9 0.9-1.1 INR results are intended INR) ONLY to monitor Oral Anticoagulant t herapy in stablized patie nts. The INR Therapeutic Range is 2.0 - 3.0 Patie nts with a mechanical he art, the INR Range is 2. 5 - 3.5 [id number] 12:09:00 Test Item Value Reference Range Interpretation Comments aPTT (test code = PTT) 22.3 seconds 23.9-30.7 L STAT LAB CBC WITH AUTO [id number] 11:57:00 Test Item Value Reference Range Interpretation [...] 0.3 % 0.0-0.4 XR CHEST AP/PA 1 [id number] 11:33:32 [facility]/[place])Name: LAUREN BETH : 1985 Sex: FProcedure: XR CHEST AP/PA 1 VIEWOrder Date: 03/24/2021 10:57 AMOrdering Provider: REHAN Farrellinical Indication: [id number]: DyspneaComparison: September 30, 2018Findings:Cardiac size is normal.Pulmonary vasculature is normal.Mediastinal contour is normal.Aortic contour is normal.No acute infiltrates or effusions.There is no mass or pneumothorax.There is no evidence of active tuberculosis.There isno acute skeletal abnormality.Impression: Negative AP view of the chest.This final report was electronically signed by Dr Farzad Dewitt MD :28 AMDictated By: FARZAD DEWITTDate: :28CULTURE, [id number] 08:00:00Specimen: Urine SpecimensCollected: 03/10/2021 11:50 Status: Final [...] code = NEGATIVE NEGATIVE N UKET) Specific [place] 1.015 1.005-1.030 A (test code = USPGR) Blood (test code = NEGATIVE NEGATIVE N UBLD) PH (test code = UPH) 7.0 4.5-8.0 A Protein (test code = NEGATIVE NEGATIVE N UPROT) Urobilinogen (test 0.2 See_Comment N [Automat ed message] code = U UROB) The system [facility] generated this result transmit michael [...] = NSE) STAT LAB CBC WITH AUTO [id number] 12:10:00 Test Item Value Reference Range Interpretation [...] 0.8 % 0.0-0.4 H STAT LAB CHEM [id number] 12:08:00 Test Item Value Reference Range Interpretation [...] = CREA) 0.5 mg/dl 0.6-1.3 L CULTURE, [id number] 08:26:00Specimen: Urine SpecimensCollected: 02/23/2021 08:35 Status: Final Last Updated: 02/24/2021 08:26 CULTURE (Final) (Final) Many Mixed Body Gabriela Isolated No Pathogens IsolatedCT ABDOMEN/PELVIS W/CONTRAST 2021-02-23 11:40:43 [facility])Name: LAUREN BETH : 1985 Sex: FProcedure: CT ABDOMEN/PELVIS W/CONTRASTOrder date: 02/23/2021 10:08 AMOrdering Provider: REHAN Farrellinical Indication: [id number]: Right lower quadrant painComparison: November 14, 2020Technique: [...] MD 111:35 AMDictated By: WILEY VELÁZQUEZDate: 02/23/2021 11:[id number] 10:44:00 Test Item Value Reference Range Interpretation Comments Lipase (test code = LIPA) 86 U/L 73-393 URINALYSIS WITH [id number] 08:58:00 Test Item Value Reference Range Interpretation Comments Color (test code = Light-Yellow UCOLR) Clarity (test code = Clear UCLAR) Glucose (test code = NEGATIVE NEGATIVE N UGLUC) Bilirubin (test code NEGATIVE NEGATIVE N = UBILI) Ketones (test code = NEGATIVE NEGATIVE N UKET) Specific [place] 1.020 1.005-1.030 A (test code = USPGR) Blood (test code = NEGATIVE NEGATIVE N UBLD) PH (test code = UPH) 6.0 4.5-8.0 A Protein (test code = NEGATIVE NEGATIVE N UPROT) Urobilinogen (test 0.2 See_Comment N [Automat ed message] code = U UROB) The [facility] generated this result transmit michael [...] = SQEP) STAT LAB CBC WITH AUTO [id number] 08:52:00 Test Item Value Reference Range Interpretation [...] IG%) 0.3 % 0.0-0.4 STAT LAB CHEM [id number] 08:52:00 Test Item Value Reference Range Interpretation [...] mg/dl 0.6-1.3 STAT LAB CBC WITH AUTO [id number] 02:37:00 Test Item Value Reference Range Interpretation [...] A value of 55 was entered by [id number] on 01/10/2021 02:3 7 Lymphocytes (test 43 % 13-42 H No previou s value code = LYMPH) was reported. A value of 43 was entered by [id number] on 01/10/2021 02:3 7 Monocytes (test 1 % 4-14 L No previous value code = MONOS) was reported. A value of 1 was entered by [id number] on 01/10/2021 02:3 7 Basophils (test 1 % 0-1 No previous value code = BASO) was reported. A value of 1 was entered by [id number] on 01/10/2021 02:3 7 Normal Morphology Normal WBC RBC Normal RBC \\T\\ N No pre vious value (test code = NRCM) and Platelet WBC was repor michael. A Morphology Morphology,Normal value of N ormal WBC RBC and WBC RBC and Platelet Platelet Morphology Morphology was entered by [id number] on 01/10/2021 02:3 7 AMYLASE, [id number] 02:14:00 Test Item Value Reference Range Interpretation Comments Amylase (test code = AMYL) 46 U/L 25-115 [id number] 02:14:00 Test Item Value Reference Range Interpretation Comments Lipase (test code = LIPA) 115 U/L 73-393 URINALYSIS WITH [id number] 02:07:00 Test Item Value Reference Range Interpretation Comments Color (test code = Light-Yellow UCOLR) Clarity (test code = Cloudy UCLAR) Glucose (test code = NEGATIVE NEGATIVE N UGLUC) Bilirubin (test code NEGATIVE NEGATIVE N = UBILI) Ketones (test code = NEGATIVE NEGATIVE N UKET) Specific [place] 1.025 1.005-1.030 A (test code = USPGR) Blood (test code = NEGATIVE NEGATIVE N UBLD) PH (test code = UPH) 6.0 4.5-8.0 A Protein (test code = NEGATIVE NEGATIVE N UPROT) Urobilinogen (test 0.2 See_Comment N [Automat ed message] code = U UROB) The system Boxed generated this result transmit michael reference range [...] (test code = NSE) STAT LAB CHEM [id number] 01:50:00 Test Item Value Reference Range Interpretation [...] 0.6 mg/dl 0.6-1.3 - CT ABD PELVIS [id number] 03:46:00 [facility] : 1985 Sex: F FAX: Annemarie Tesfaye [phone] [place]: St: REG Name: JEANE BETHALECIA Zoltan [facility] : 1985 Age/S: 35/F [address] Unit: [id number] Loc: [place] [address] Phys: Annemarie Tesfaye MUSIC INTERN Acct: [id number] Dis Date: Status: REG ER PHONE #: [phone] Exam Date: 12/13/2020 0325 FAX #: [phone] Reason: DIFFUSE ABD PAIN WORSE RLQ, HX APPY, ROSE EXAMS: CPT CODE: [id number] CT ABD PELVIS [id number] AFTER HOURS SERVICE ON: 12/13/2020 3:[address] Scan of the Abdomen and Pelvis With Contrast Location Code M12 History: DIFFUSE ABD PAIN WORSE RLQ, HX APPY, ROSE Technique: Axial and reconstructed coronal scans were performed on a helical scanner post IV contrast. One or more of the following dosereduction techniques were used: Automated exposure control, adjustment of the mA and/or kV accordingto patient size, and/or utilization of iterative reconstruction [...] the stomach, cholecystectomy, appendectomy and hysterectomy. at 0276 Reported and signed by: Neo Huber MD PAGE 1 Signed Report (CONTINUED) FAX: Annemarie Tesfaye [phone] [place]: St: REG--------- Name: LAUREN BETH [facility] : 1985 Age/S: 35/F [address] Unit: [id number] Loc: [place] [address] Phys: Annemarie Tesfaye NP Acct: [id number] Dis Date: Status: REG ER PHONE #: [phone] Exam Date: 12/13/2020 0325 FAX #: [phone] Reason: DIFFUSE ABD PAIN WORSE RLQ, HX APPY, ROSE EXAMS: CPT CODE: [id number] CT ABD PELVIS W/CONT 77550 <Continued> CC: Annemarie Tesfaye NP Technologist: PAMELA KRISHNAMURTHY; Jessi Guillory; JAIRO SANCHEZ JR [facility] Dt/Tm: 12/13/2020 (0346) t.SDR.MA50 Orig Print D/T: S: 12/13/2020 (8229 PAGE 2 Signed ReportCOMPREHENSIVE METABOLIC [id number] 03:32:00 Test Item Value Reference Range Interpretation [...] U/L 38-126 N (test code = ALKP) [id number] 03:32:00 Test Item Value Reference Range Interpretation Comments LIPASE (test code = LIP) 82 U/L 23-300 N BEDSIDE [id number] 03:24:00 Test Item Value Reference Range Interpretation Comments BEDSIDE CREATININE (test code = 0.60 mg/dL 0.51-1.19 N CREATBED) CBC W/AUTO [id number] 03:14:00 Test Item Value Reference Range Interpretation [...] 0.0-0.1 N UA RFLX MICR CULT IF [id number] 02:59:00 Test Item Value Reference Range Interpretation [...] OF URINE: VOIDEDSTAT LAB CBC WITH AUTO [id number] 15:12:00 Test Item Value Reference Range Interpretation [...] 82 on 12/12/2020 15:12 STAT LAB CHEM [id number] 14:08:00 Test Item Value Reference Range Interpretation [...] mg/dl 0.6-1.3 L STAT LAB URINALYSIS WITHOUT [id number] 12:08:00 Test Item Value Reference Range Interpretation Comments Color (test code = Light-Yellow UCOLR) Clarity (test code = Cloudy UCLAR) Glucose (test code = NEGATIVE NEGATIVE N UGLUC) Bilirubin (test code NEGATIVE NEGATIVE N = UBILI) Ketones (test code = NEGATIVE NEGATIVE N UKET) Specific [place] 1.015 1.005-1.030 A (test code = USPGR) Blood (test code = NEGATIVE NEGATIVE N UBLD) PH (test code = UPH) 7.0 4.5-8.0 A Protein (test code = NEGATIVE NEGATIVE N UPROT) Urobilinogen (test 0.2 See_Comment N [Automat ed message] code = U UROB) The system [facility] generated this result transmit michael [...] = 0.4 mg/dl 0.0-1.1 IBIL) URINALYSIS WITH [id number] 08:31:00 Test Item Value Reference Range Interpretation Comments Color (test code = Light-Yellow UCOLR) Clarity (test code = Clear UCLAR) Glucose (test code = NEGATIVE NEGATIVE N UGLUC) Bilirubin (test code NEGATIVE NEGATIVE N = UBILI) Ketones (test code = NEGATIVE NEGATIVE N UKET) Specific [place] 1.020 1.005-1.030 A (test code = USPGR) Blood (test code = NEGATIVE NEGATIVE N UBLD) PH (test code = UPH) 6.5 4.5-8.0 A Protein (test code = NEGATIVE NEGATIVE N UPROT) Urobilinogen (test 0.2 See_Comment N [Automat ed message] code = U UROB) The system [employer] generated this result transmit michael reference range [...] (test code = SQEP) STAT LAB CHEM [id number] 08:27:00 Test Item Value Reference Range Interpretation [...] 0.6-1.3 L STAT LAB CBC WITH AUTO [id number] 08:26:00 Test Item Value Reference Range Interpretation [...] 0.0-0.4 XR ABDOMEN 2 VIEWS FLAT / [id number] 08:18:50 [facility] ([facility]/[place])Name: LAUREN BETH DOB: 1985 Sex: FProcedure: XR ABDOMEN 2 VIEWS FLAT / UPRIGHTOrder Date: 11/21/2020 7:43 AMOrdering Provider: REHAN Farrellinical Indication: [id number]: Abdominal painComparison: Nov 14 2020Findings:Bowel gas pattern is non-obstructive. No pneumoperitoneum.There is moderate volume stool burden.Surgical clips in the right upper quadrant of the abdomen.Impression:Nonobstructive bowel gas pattern.This final reportwas electronically signed by Dr Silver Benitez MD :13 AMDictated By: GLORY BENITEZKDate: 11/21/2020 08:13CT ABDOMEN/PELVIS W/O [id number] 14:11:31 [facility] ([facility]/)Name: LAUREN BETH : 1985 Sex: FProcedure: CT ABDOMEN/PELVIS W/O CONTRASTOrder Date: 11/14/2020 1:22 PMOrdering Provider: URIAH ACOSTA .Clinical Indication: [id number]: Right flank painComparison: Renal ultrasound November 08, 2020, CT abdomen/pelvis August 06, 2020Technique: Using a helical scanner, sequential axial imagingof the abdomen andpelvis was obtained without the [...] density. There are no intrinsic splenic masses.There isno evidence of a subcapsular hematoma or fluid collection.The pancreas is normal in size and density. There are no pancreaticcalcifications or masses. There is no pancreatic ductal dilatation.The adrenal glands are normal in size bilaterally.There are no adrenal masses bilaterally.The right kidney is normal in size and shape.There are no calculi, masses, or hydronephrosis.The left kidney is normal insize and shape.There are 2 adjacent calculi within an interpolar calyx measuring 2 mm indiameter. Noureteral calculi or hydronephrosis. No masses.Aorta is normal [...] has a normal appearance.The uterus has been removedNoinguinal masses.There is no skeletal lesion.IMPRESSION:1. Nonobstructive left nephrolithiasis.2. No other urinary tract calculi or hydronephrosis bilaterally.3. No acute inflammatory change in the abdomen or pelvis.4. Postoperative change consisting of gastric sleeve procedure, cholecystectomy,appendectomy, and hysterectomy.5. No other significant findings.This final report was electronically signed by Dr Farzad Dewitt MD 12:05 PMDictated By: FARZAD DEWITTDate: 11/14/2020 14:05STAT LAB , [id number] 13:31:00 Test Item Value Reference Range Interpretation Comments (Urine) (test code = Negative PREGU) ONLY AVAILABLE 8A-12MNSTAT LAB CHEM [id number] 11:09:00 Test Item Value Reference Range Interpretation [...] mg/dl 0.6-1.3 L STAT LAB URINALYSIS WITHOUT [id number] 11:08:00 Test Item Value Reference Range Interpretation Comments Color (test code = Yellow Lt. Yellow A UCOLR) Clarity (test code = Clear UCLAR) Glucose (test code = Negative Negative N UGLUC) Bilirubin (test code Negative Negative N = UBILI) Ketones (test code = Negative Negative N UKET) Specific [place] 1.025 1.005-1.030 A (test code = USPGR) Blood (test code = Trace-intact Negative A UBLD) PH (test code = UPH) 6.0 4.5-8.0 A Protein (test code = Negative Negative N UPROT) Urobilinogen (test 0.2 See_Comment N [Automat ed message] code = U UROB) The system [facility] generated this result transmit michael reference range : 0.2. The refere nce range was not u sed to interpret th is result as normal/abnormal . Nitrite (test code = Negative Negative N UNITR) Leukocyte Esterase Negative Negative N (test code = ULEUK) STAT LAB CBC WITH AUTO [id number] 11:05:00 Test Item Value Reference Range Interpretation [...] code = IG%) 0.4 % 0.0-0.4 CULTURE, [id number] 08:43:00Specimen: Urine SpecimensCollected: 11/08/2020 09:59 Status: Final Last Updated: 11/09/2020 08:43 CULTURE (Final) (Final) Few Mixed Body Gabriela Isolated No Pathogens IsolatedUS RENAL & BLADDER (KIDNEYS) 2020-11-08 12:00:28 [facility])Name: LAUREN BETH : 1985 Sex: FProcedure: [...] AMDictated By: GLORY BENITEZKDate: 11/08/2020 11:54URINALYSIS WITH [id number] 10:58:00 Test Item Value Reference Range Interpretation Comments Color (test code = Yellow UCOLR) Clarity (test code = Clear UCLAR) Glucose (test code = NEGATIVE NEGATIVE N UGLUC) Bilirubin (test code = NEGATIVE NEGATIVE N UBILI) Ketones (test code = NEGATIVE NEGATIVE N UKET) Specific [place] (test 1.030 1.005-1.030 A code = USPGR) Blood (test code = NEGATIVE NEGATIVE N UBLD) PH (test code = UPH) 6.0 4.5-8.0 A Protein (test code = NEGATIVE NEGATIVE N UPROT) Urobilinogen (test code 0.2 See_Comment N [Au tomated message] = U UROB) The system [employer] generated this result transmitted ref erence range: [...] 0-10 A (test code = SQEP) CULTURE, [id number] 08:13:00ER 17Specimen: Urine SpecimensCollected: 11/01/2020 01:10 Status: Final Last Updated: 11/02/2020 08:13 (1) ER 17 CULTURE (Final) (Final) Few Mixed Body Gabriela Isolated No Pathogens IsolatedXR ABD SERIES W/PA [id number] 03:48:37 [facility] ([facility])Name: LAUREN BETH : 1985 Sex: FPROCEDURE [...] electronically signed by Filippo Ramos MD on October:48 AM CDT.Dictated By: FILIPPO RAMOSDate: 11/01/2020 03:48HEPATIC [...] mg/dl 0.0-1.1 IBIL) ER 17STAT LAB CHEM [id number] 01:57:00 Test Item Value Reference Range Interpretation [...] 0.5 mg/dl 0.6-1.3 L ER 17URINALYSIS WITH [id number] 01:56:00 Test Item Value Reference Range Interpretation Comments Color (test code = Light-Yellow UCOLR) Clarity (test code = Clear UCLAR) Glucose (test code = 50 NEGATIVE A UGLUC) Bilirubin (test code NEGATIVE NEGATIVE N = UBILI) Ketones (test code = NEGATIVE NEGATIVE N UKET) Specific [place] 1.025 1.005-1.030 A (test code = USPGR) Blood (test code = NEGATIVE NEGATIVE N UBLD) PH (test code = UPH) 6.0 4.5-8.0 A Protein (test code = TRACE NEGATIVE A UPROT) Urobilinogen (test 0.2 See_Comment N [Automat ed message] code = U UROB) The system [employer] generated this result transmit michael reference [...] SQEP) ER 17STAT LAB CBC WITH AUTO [id number] 01:55:00 Test Item Value Reference Range Interpretation [...] code = 0.1 mg/dl 0.0-1.1 IBIL) er [id number] 01:26:00 Test Item Value Reference Range Interpretation Comments Lipase (test code = LIPA) 154 U/L 73-393 ER [facility] LAB CHEM [id number] 01:15:00 Test Item Value Reference Range Interpretation [...] code = CREA) 0.6 mg/dl 0.6-1.3 er STAT LAB , [id number] 01:14:00 Test Item Value Reference Range Interpretation Comments (Urine) (test code = Negative PREGU) er STAT LAB CBC WITH AUTO [id number] 01:13:00 Test Item Value Reference Range Interpretation [...] = IG%) 0.9 % 0.0-0.4 H er [id number] 04:21:00 Test Item Value Reference Range Interpretation [...] code = 0.1 mg/dl 0.0-1.1 IBIL) AMYLASE, [id number] 04:21:00 Test Item Value Reference Range Interpretation Comments Amylase (test code = AMYL) 47 U/L 25-115 URINALYSIS WITH [id number] 03:06:00 Test Item Value Reference Range Interpretation Comments Color (test code = Light-Yellow UCOLR) Clarity (test code = Clear UCLAR) Glucose (test code = NEGATIVE NEGATIVE N UGLUC) Bilirubin (test code NEGATIVE NEGATIVE N = UBILI) Ketones (test code = TRACE NEGATIVE A UKET) Specific [place] 1.025 1.005-1.030 A (test code = USPGR) Blood (test code = NEGATIVE NEGATIVE N UBLD) PH (test code = UPH) 5.5 4.5-8.0 A Protein (test code = NEGATIVE NEGATIVE N UPROT) Urobilinogen (test 0.2 See_Comment N [Automat ed message] code = U UROB) The system [employer] generated this result transmit michael reference range [...] (test code = NSE) STAT LAB CHEM [id number] 02:51:00 Test Item Value Reference Range Interpretation [...] mg/dl 0.6-1.3 STAT LAB CBC WITH AUTO [id number] 02:50:00 Test Item Value Reference Range Interpretation [...] H XR ABDOMEN 1 VIEW (KUB)2020-09-12 01:51:21 [facility] ([facility]/[place])Name: LAUREN BETH : 1985 Sex: FPROCEDURE INFORMATION:Exam: [...] ALLENDate: 09/12/2020 01:50STAT LAB CBC WITH AUTO [id number] 01:29:00 Test Item Value Reference Range Interpretation [...] IG%) 0.4 % 0.0-0.4 STAT LAB CHEM [id number] 01:28:00 Test Item Value Reference Range Interpretation [...] = CREA) 0.6 mg/dl 0.6-1.3 URINALYSIS WITH [id number] 03:04:00 Test Item Value Reference Range Interpretation Comments Color (test code = Yellow UCOLR) Clarity (test code = Clear UCLAR) Glucose (test code = 100 NEGATIVE A UGLUC) Bilirubin (test code = NEGATIVE NEGATIVE N UBILI) Ketones (test code = TRACE NEGATIVE A UKET) Specific [place] (test >=1.030 1.005-1.030 A code = USPGR) Blood (test code = NEGATIVE NEGATIVE N UBLD) PH (test code = UPH) 5.5 4.5-8.0 A Protein (test code = NEGATIVE NEGATIVE N UPROT) Urobilinogen (test code 0.2 See_Comment N [Au tomated message] = U UROB) The system [employer] generated this result transmitted ref erence range: [...] code = 3+ None Seen,Trace A UBACT) [id number] 03:01:00 Test Item Value Reference Range Interpretation [...] ( 4 - SerumAlbumin)] EGFR if >60 [place]ian (test code mL/min/1.73m\\ = EGFRAA) S\\2 EGFR if Non- >60 Estimate d Glomerular [place]ian (test code mL/min/1.73m\\ Filtrat ion Rate (eGFR) [...] and management of c hronic kidney failure. [id number] 03:01:00 Test Item Value Reference Range Interpretation Comments Lipase (test code = LIPA) 145 U/L 73-393 STAT LAB TEST, Serum [id number] 02:48:00 Test Item Value Reference Range Interpretation Comments (Serum) (test code = Negative PREGS) STAT LAB CBC WITH AUTO [id number] 02:28:00 Test Item Value Reference Range Interpretation [...] code = 0.1 mg/dl 0.0-1.1 IBIL) ER [id number] 02:59:00 Test Item Value Reference Range Interpretation Comments Lipase (test code = LIPA) 167 U/L 73-393 ER 16URINALYSIS WITH [id number] 02:48:00 Test Item Value Reference Range Interpretation Comments Color (test code = UCOLR) Yellow Clarity (test code = UCLAR) Clear Glucose (test code = UGLUC) NEGATIVE NEGATIVE N Bilirubin (test code = UBILI) NEGATIVE NEGATIVE N Ketones (test code = UKET) NEGATIVE NEGATIVE N Specific [place] (test code = >=1.030 1.005-1.030 A USPGR) [...] None Seen,Trace A ER 16CT ABDOMEN/PELVIS W/O [id number] 02:34:52ER 16 R/O KIDNEY STONE [facility] ([facility]/)Name: LAUREN BETH : [id number] Sex: FPROCEDURE INFORMATION:Exam: CT Abdomen And Pelvis [...] Asmall 3.4 mm nonobstructing left renal calculus ispresent.Stomach and bowel: Status post gastric sleeve procedure. [...] By: HOLLIS FERRERADate: 08/06/2020 02:34STAT LAB CHEM [id number] 02:29:00 Test Item Value Reference Range Interpretation [...] L ER 16STAT LAB CBC WITH AUTO [id number] 02:29:00 Test Item Value Reference Range Interpretation [...] = IG%) 0.7 % 0.0-0.4 H ER [id number] 09:31:00 Test Item Value Reference Range Interpretation [...] IBIL) XR ABDOMEN 2 VIEWS FLAT / [id number] 09:22:50 [facility] ([facility])Name: LAUREN BETH : [id number] Sex: FProcedure: XR ABDOMEN 2 VIEWS FLAT / UPRIGHTOrder Date: 07/19/2020 8:40 AMOrdering Provider: REHAN COTTON .Clinical Indication: [id number]: Abdominal painComparison: July 05, 2020Findings:Postoperative change consisting [...] Dr Farzad Dewitt MD :17 AMDictated By: FARZDA DEWITT.Date: 07/19/2020 09:17STAT LAB CHEM [id number] 09:10:00 Test Item Value Reference Range Interpretation [...] 0.6-1.3 L STAT LAB CBC WITH AUTO [id number] 09:09:00 Test Item Value Reference Range Interpretation [...] % 0.0-0.4 H STAT LAB URINALYSIS WITHOUT [id number] 09:08:00 Test Item Value Reference Range Interpretation Comments Color (test code = UCOLR) Yellow Lt. Yellow A Clarity (test code = UCLAR) Clear Glucose (test code = UGLUC) Negative Negative N Bilirubin (test code = UBILI) Negative Negative N Ketones (test code = UKET) Negative Negative N Specific [place] (test code = USPGR) >=1.030 1.005-1.030 A Blood (test code = UBLD) Negative Negative N PH (test code = UPH) 6.0 4.5-8.0 A Protein (test code = UPROT) Negative Negative N Urobilinogen (test code = U UROB) 0.2 >0.2 N Nitrite (test code = UNITR) Negative Negative N Leukocyte Esterase (test code = Negative Negative N ULEUK) CULTURE, [id number] 08:00:00Specimen: Urine SpecimensCollected: 07/05/2020 03:00 Status: Final Last Updated: 07/07/2020 08:00 CULTURE (Final) (Final) No Growth After 48 HoursXR ABDOMEN 1 VIEW (KUB)2020-07-05 04:07:04 [facility] ([facility]/[place])Name: LAUREN BETH : [id number] Sex: FPROCEDURE INFORMATION:Exam: XR Abdomen, 1 ViewExam [...] quadrant of the abdomen.Bones/joints: No acute findings.IMPRESSION:Nonobstructed bowelgas pattern.This Final report was electronically signed by Oskar Crane MD on 4:06 AM CDT.Dictated By: OSKAR CRANEte: 07/05/2020 04:06STAT LAB , [id number] 03:54:00 Test Item Value Reference Range Interpretation Comments (Urine) (test code = Negative PREGU) STAT LAB CHEM [id number] 03:53:00 Test Item Value Reference Range Interpretation [...] 0.6-1.3 L STAT LAB CBC WITH AUTO [id number] 03:51:00 Test Item Value Reference Range Interpretation [...] = IG%) 0.4 % 0.0-0.4 URINALYSIS WITH [id number] 03:33:00 Test Item Value Reference Range Interpretation Comments Color (test code = UCOLR) Yellow Clarity (test code = UCLAR) Clear Glucose (test code = UGLUC) NEGATIVE NEGATIVE N Bilirubin (test code = UBILI) Small NEGATIVE A Ketones (test code = UKET) TRACE NEGATIVE A Specific [place] (test code = USPGR) 1.020 1.005-1.030 A [...] UBACT) Trace None Seen,Trace N CT ABDOMEN/PELVIS W/[id number] 16:44:35 [facility] ([facility])Name: LAUREN BETH : [id number] Sex: FProcedure: CT ABDOMEN/PELVIS W/CONTRASTOrder date: 06/07/2020 3:47 PMOrdering Provider: REHAN Farrellinical Indication: [id number]: Left flank painComparison: 06/07/20Technique: Multiple axial helical [...] PMDictated By: WILEY VELÁZQUEZDate: 06/07/2020 16:38URINALYSIS WITH [id number] 15:22:00 Test Item Value Reference Range Interpretation Comments Color (test code = UCOLR) Yellow Clarity (test code = UCLAR) Clear Glucose (test code = UGLUC) NEGATIVE NEGATIVE N Bilirubin (test code = UBILI) NEGATIVE NEGATIVE N Ketones (test code = UKET) NEGATIVE NEGATIVE N Specific [place] (test code = USPGR) 1.020 1.005-1.030 A [...] Trace None Seen,Trace N STAT LAB CHEM [id number] 15:10:00 Test Item Value Reference Range Interpretation [...] 0.6-1.3 L STAT LAB CBC WITH AUTO [id number] 15:08:00 Test Item Value Reference Range Interpretation [...] ABD/ PELVIS W/O CON (RENAL STONE)2020-06-07 14:56:05 [facility] ([facility])Name: LAUREN BETH : [id number] Sex: FProcedure: CT ABD/ PELVIS W/O CON (RENAL STONE)Order date: 06/07/2020 2:18 PMOrdering Provider: REHAN Farrellinical Indication: [id number]: Left flank painComparison: 05/31/20TECHNIQUE: Using a helical [...] By: WILEY VELÁZQUEZDate: 06/07/2020 14:49CT ABDOMEN/PELVIS W/O [id number] 12:27:07NPO 4 hours. Do not withhold meds hyst [facility] ([facility]/)Name: LUAREN BETH : [id number] Sex: FProcedure: CT ABDOMEN/PELVIS W/O CONTRASTOrder Date: 05/31/2020 10:25 AMOrdering Provider: Zoltan MCBRIDEClinical Indication: [id number]: Pain radiating to right flankComparison: March 20, 2020Technique: Using a helical scanner, sequential axial imaging of the abdomen andpelvis was obtained without the administration of oral or IV contrast. The examextended from the level of the lung bases superiorly to the level of the pubicsymphysis inferiorly. 2-D sagittal and coronal reconstructed imageswereobtained. This exam was performed according to the [...] has been removed.The spleen is normal in sizeand density. There are no intrinsic splenic masses.There is no evidence of a subcapsular hematoma orfluid collection.The pancreas is normal in size and [...] hydronephrosis.No masses.Aorta is normal in size and diame ter. There is no aneurysm.The IVC is normal [...] other significant findings.This final report was electronically signedby Dr Farzad Dewitt MD 05/31/202012:20 PMDictated By: FARZAD DEWITTDate: 05/31/2020 12:20LIPASE 2020-05-31 11:48:00 Test Item Value Reference Range Interpretation Comments Lipase (test code = LIPA) 116 U/L 73-393 STAT LAB URINALYSIS WITHOUT [id number] 10:59:00 Test Item Value Reference Range Interpretation Comments Color (test code = UCOLR) Light yellow Lt. Yellow A Clarity (test code = UCLAR) Clear Glucose (test code = UGLUC) Negative Negative N Bilirubin (test code = UBILI) Negative Negative N Ketones (test code = UKET) Negative Negative N Specific [place] (test code = 1.025 1.005-1.030 A USPGR) Blood (test code = UBLD) Negative Negative N PH (test code = UPH) 6.0 4.5-8.0 A Protein (test code = UPROT) Negative Negative N Urobilinogen (test code = U 0.2 >0.2 N UROB) Nitrite (test code = UNITR) Negative Negative N Leukocyte Esterase (test code = Negative Negative N ULEUK) STAT LAB CBC WITH AUTO [id number] 10:58:00 Test Item Value Reference Range Interpretation [...] 0.5 % 0.0-0.4 H STAT LAB CHEM [id number] 10:53:00 Test Item Value Reference Range Interpretation [...] L XR ABDOMEN 1 VIEW (KUB)2020-04-25 21:02:16 [facility] ([facility])Name: LAUREN BETH [facility]: [id number] Sex: FPROCEDURE INFORMATION:Exam: XR Abdomen, 1 ViewExam [...] code = UKET) Negative Negative N Specific [place] (test code = 1.020 1.005-1.030 A USPGR) [...] Seen,Trace A STAT LAB CBC WITH AUTO [id number] 18:55:00 Test Item Value Reference Range Interpretation [...] of Platel et clumping was entered by [id number] on 04/25/2020 18:5 5 STAT LAB CHEM [id number] 18:17:00 Test Item Value Reference Range Interpretation [...] CREA) 0.4 mg/dl 0.6-1.3 L CULTURE, ANAEROBE [id number] 15:20:00FIRST DRAW = 1 aerobic and 1 anerobic CultureSpecimen: BloodCollected: 03/20/2020 18:30 Status: Final Last Updated: 03/26/2020 15:19 (1) FIRST DRAW = 1 aerobic and 1 anerobic Culture CULTURE (Final) (Final) No Growth After 5 DaysCULTURE, [id number] 15:20:00FIRST DRAW = 1 aerobic and 1 anerobic CultureSpecimen: BloodCollected: 03/20/2020 18:30 Status: Final Last Updated: 03/26/2020 15:19 (1) FIRST DRAW = 1 aerobic and 1 anerobic Culture CULTURE (Final) (Final) No Growth After 5 DaysCT ABDOMEN/PELVIS W/[id number] 21:46:442 weeks s/p adhesolysis. Vomiting/pain/fever. Please do CT with PO and IV contrastProcedures: CT ABDOMEN/PELVIS W/CONTRASTExam Date: 03/20/2020 6:04 PMOrdering Physician: REHAN Farrellinical Indication: [id number]: Abdominal painComparison: CT abdomen/pelvis, 02/25/20TECHNIQUE: Spiral multislice [...] retroperitoneal lymphadenopathy.Masses: None.OSSEOUS: Degenerative changes of the spine;otherwise, no significant osseouslesions.OTHER: No significant abnormality of [...] (test code = 0.3 mg/dl 0.0-1.1 IBIL) [id number] 19:24:00 Test Item Value Reference Range Interpretation Comments Lipase (test code = LIPA) 69 U/L 73-393 L [id number] 19:24:00 Test Item Value Reference Range Interpretation Comments Magnesium (test code = MG) 2.0 mg/dl 1.6-2.6 STAT LAB CHEM [id number] 18:43:00 Test Item Value Reference Range Interpretation [...] 0.5 mg/dl 0.6-1.3 L STAT LAB LACTIC [id number] 18:42:00 Test Item Value Reference Range Interpretation Comments LACTATE (test code = 2.50 mmol/l 0.90-1.70 R&RB sy rene hassan rn LAC) @1842 STAT LAB CBC WITH AUTO [id number] 18:41:00 Test Item Value Reference Range Interpretation [...] PLMNT MIDLINE NO PORT > 5 y/o W/[id number] 13:21:10Procedure: SP PERC PLMNT MIDLINE NO PORT > 6 y/o W/IMAGINGOrder Date: 03/15/2020 10:06 AMOrdering Provider: LIZBETH Linaresical Indication: Vascular accessTechnique:The patient was placed supine [...] secured to the skin in the usual fashion.Jewel Waxer images were recorded and stored in the [...] lection of specimen. XR ABD SERIES W/PA [id number] 17:33:07Procedure: XR ABD SERIES W/PA CXROrder Date: 03/13/2020 4:25 PMOrdering Provider: DR ELIUD STAFFORDClinical Indication: R10.0: ACUTE ABDOMENComparison: NoneFindings:Lungs are clear. Heart size is withinnormal limits.Abdomen views show non-obstructive bowel gas pattern. No pneumoperitoneum.Moderate volume stool burden.Surgical clips in the right upper quadrant of the abdomen.Impression:No acute pulmonary process.Nonobstructive bowel gas pattern.This final report was electronically signed by Dr Vee MD 03/13/20205:26 PMDictated By: GLORY BENITEZKDate: 03/13/2020 17:26STAT LAB CBC WITH AUTO [id number] 17:23:00 Test Item Value Reference Range Interpretation [...] entered by [id number] 82 on 03/13/2020 17:23 [id number] 17:23:00 Test Item Value Reference Range Interpretation [...] = 0.4 mg/dl 0.0-1.1 IBIL) URINALYSIS WITH [id number] 16:54:00 Test Item Value Reference Range Interpretation Comments Color (test code = UCOLR) Yellow Lt. Yellow A Clarity (test code = UCLAR) Clear Glucose (test code = UGLUC) Negative Negative N Bilirubin (test code = UBILI) Negative Negative N Ketones (test code = UKET) Negative Negative N Specific [place] (test code = >=1.030 1.005-1.030 A USPGR) [...] 4+ None Seen,Trace A STAT LAB CHEM [id number] 16:37:00 Test Item Value Reference Range Interpretation [...] PLMNT MIDLINE NO PORT > 6 y/o W/[id number] 12:23:44Procedure: SP PERC PLMNT MIDLINE NO PORT [...] amicropuncture needle and a 0.018 guidewire was advancedinto the selectedvessel. The needle was removed and the 20 gauge Powerglide catheter wasadvanced over the wire into the left axillary vein. The wire was removed. Thecatheter was secured to the skin in the usual fashion. The patient toleratedthe procedure well and there were no immediate complications.Images were permanently stored on a PACS storage system and also to document thepatency of the vessel.Impression:1. Successful upper extremity vascular access.This final report was electronically signedby Dr Silver Benitez MD 03/02/202012:17 PMDictated By: GLORY BENITEZKDagarrison: 03/02/2020 12:17CORONAVIRUS 2018 (IN HOUSE)2020-03-01 18:48:00 Test [...] recommend recol lection of specimen. PT AND [id number] 11:51:00 Test Item Value Reference Range Interpretation Comments Protime (test code 9.8 seconds 9.5-12.1 = PT) INR (test code = 0.9 0.9-1.1 INR results are intended INR) ONLY to monitor Oral Anticoagulant t herapy in stablized patie nts. The INR Therapeutic Range is 2.0 - 3.0 Patie nts with a mechanical he art, the INR Range is 2. 5 - 3.5 [id number] 11:51:00 Test Item Value Reference Range Interpretation [...] BE NOTED ON THE RE PORT. CULTURE, [id number] 08:08:00Specimen: Urine RandomCollected: 02/25/2020 11:27 Status: Final Last Updated: 02/27/2020 08:08 CULTURE (Final) (Final) No Growth After 48 [id number] 05:38:00 Test Item Value Reference Range Interpretation [...] 0.5-1.3 code = CREA) EGFR if >60 [place] (test code mL/min/1.73m\\ = EGFRAA) S\\2 EGFR if Non- >60 Estimate d Glomerular [place] (test code mL/min/1.73m\\ Filtrat ion Rate (eGFR) [...] 0.04 mIU/L 0.35-3.74 L CBC WITH AUTO [id number] 05:18:00 Test Item Value Reference Range Interpretation [...] recommend recol lection of specimen. URINALYSIS WITH [id number] 12:56:00 Test Item Value Reference Range Interpretation Comments Color (test code = UCOLR) Yellow Lt. Yellow A Clarity (test code = UCLAR) Slightly Cloudy Glucose (test code = UGLUC) Negative Negative N Bilirubin (test code = UBILI) Negative Negative N Ketones (test code = UKET) Negative Negative N Specific [place] (test code = >=1.030 1.005-1.030 A USPGR) [...] code = UBACT) Trace None Seen,Trace N [id number] 12:52:00 Test Item Value Reference Range Interpretation [...] = 0.3 mg/dl 0.0-1.1 IBIL) CT ABDOMEN/PELVIS W/[id number] 12:42:41NPO 4 hours. Do not withhold meds [...] WILEY VELÁZQUEZDate: 02/25/2020 12:36 STAT LAB CHEM [id number] 12:07:00 Test Item Value Reference Range Interpretation [...] 0.6-1.3 L STAT LAB CBC WITH AUTO [id number] 12:05:00 Test Item Value Reference Range Interpretation [...] % 0.0-0.4 STAT LAB CBC WITH AUTO [id number] 03:15:00 Test Item Value Reference Range Interpretation [...] 0.6 % 0.0-0.4 H STAT LAB CHEM [id number] 02:55:00 Test Item Value Reference Range Interpretation [...] JORGE LUIS WHITEDate: 02/25/2020 02:45STAT LAB , [id number] 01:12:00 Test Item Value Reference Range Interpretation Comments (Urine) (test code = Negative PREGU) STAT LAB URINALYSIS WITHOUT [id number] 01:11:00 Test Item Value Reference Range Interpretation Comments Color (test code = UCOLR) Yellow Lt. Yellow A Clarity (test code = UCLAR) Clear Glucose (test code = UGLUC) Negative Negative N Bilirubin (test code = UBILI) Negative Negative N Ketones (test code = UKET) Negative Negative N Specific [place] (test code = USPGR) >=1.030 1.005-1.030 A [...] By: JORGE LUIS WHITEDate: 02/10/2020 05:31URINALYSIS WITH [id number] 05:10:00 Test Item Value Reference Range Interpretation Comments Color (test code = UCOLR) Yellow Lt. Yellow A Clarity (test code = UCLAR) Clear Glucose (test code = UGLUC) >=1000 Negative A Bilirubin (test code = UBILI) Negative Negative N Ketones (test code = UKET) Negative Negative N Specific [place] (test code = 1.015 1.005-1.030 A USPGR) [...] = UBACT) None Seen None Seen,Trace N [id number] 04:42:00 Test Item Value Reference Range Interpretation [...] 0.2 mg/dl 0.0-1.1 IBIL) STAT LAB CHEM [id number] 04:27:00 Test Item Value Reference Range Interpretation [...] CREA) 0.6 mg/dl 0.6-1.3 STAT LAB , [id number] 04:24:00 Test Item Value Reference Range Interpretation Comments (Urine) (test code = Negative PREGU) STAT LAB CBC WITH AUTO [id number] 04:22:00 Test Item Value Reference Range Interpretation [...] % 0.0-0.[address] CT L SPINE W/O [id number] 12:46:24Procedure: CT L SPINE W/O CONTRASTOrder date: 01/25/2020 11:46 AMOrdering Provider: DONALD Healyinical Indication: [id number]: Low back painComparison: NoneTechnique: Using a multislice [...] code = 0.3 mg/dl 0.0-1.1 IBIL) ER [id number] 05:49:00 Test Item Value Reference Range Interpretation Comments Lipase (test code = LIPA) 105 U/L 73-393 ER 7STAT LAB CHEM [id number] 05:06:00 Test Item Value Reference Range Interpretation [...] L ER 7STAT LAB CBC WITH AUTO [id number] 05:04:00 Test Item Value Reference Range Interpretation [...] code = IG%) 0.4 % 0.0-0.4 ER [id number] 02:23:00 Test Item Value Reference Range Interpretation [...] ( 4 - SerumAlbumin)] EGFR if >60 [place] (test code mL/min/1.73m\\ = EGFRAA) S\\2 EGFR if Non- >60 Estimate d Glomerular [place] (test code mL/min/1.73m\\ Filtrat ion Rate (eGFR) [...] of c hronic kidney failure. URINALYSIS WITH [id number] 02:11:00 Test Item Value Reference Range Interpretation Comments Color (test code = UCOLR) Yellow Lt. Yellow A Clarity (test code = UCLAR) Clear Glucose (test code = UGLUC) Negative Negative N Bilirubin (test code = UBILI) Negative Negative N Ketones (test code = UKET) Trace Negative A Specific [place] (test code = USPGR) >=1.030 1.005-1.030 A [...] Seen,Trace A STAT LAB CBC WITH AUTO [id number] 02:03:00 Test Item Value Reference Range Interpretation [...] = IG%) 0.4 % 0.0-0.4 CT ABDOMEN/PELVIS W/[id number] 22:43:00NPO 4 hours. Do not withhold meds [...] 201910:42 PM CDT.Dictated By: JOSUÉ MCGHEEDate: 10/07/2019 22:[id number] 22:05:00 Test Item Value Reference Range Interpretation [...] 0.5-1.3 code = CREA) EGFR if >60 [place] (test code mL/min/1.73m\\ = EGFRAA) S\\2 EGFR if Non- >60 Estimate d Glomerular [place] (test code mL/min/1.73m\\ Filtrat ion Rate (eGFR) [...] management of c hronic kidney failure. AMYLASE, [id number] 22:05:00 Test Item Value Reference Range Interpretation Comments Amylase (test code = AMYL) 43 U/L 25-115 [id number] 22:05:00 Test Item Value Reference Range Interpretation Comments Lipase (test code = LIPA) 95 U/L 73-393 URINALYSIS WITH [id number] 21:49:00 Test Item Value Reference Range Interpretation Comments Color (test code = UCOLR) Yellow Lt. Yellow A Clarity (test code = UCLAR) Clear Glucose (test code = UGLUC) Negative Negative N Bilirubin (test code = UBILI) Negative Negative N Ketones (test code = UKET) 15 Negative A Specific [place] (test code = USPGR) >=1.030 1.005-1.030 A [...] Seen,Trace A STAT LAB CBC WITH AUTO [id number] 21:45:00 Test Item Value Reference Range Interpretation [...] IG%) 0.4 % 0.0-0.4 STAT LAB , [id number] 21:36:00 Test Item Value Reference Range Interpretation Comments (Urine) (test code = Negative PREGU) CT ABDOMEN/PELVIS W/O [id number] 03:56:36PROCEDURE INFORMATION:Exam: CT Abdomen And Pelvis Without [...] 3:56 AM CDT.Dictated By: AMY ORDOÑEZDate: 09/20/2019 03:[id number] 02:07:00 Test Item Value Reference Range Interpretation [...] ( 4 - SerumAlbumin)] EGFR if >60 [place] (test code mL/min/1.73m\\ = EGFRAA) S\\2 EGFR if Non- >60 Estimate d Glomerular [place] (test code mL/min/1.73m\\ Filtrat ion Rate (eGFR) = EGFRNA) S\\2 Reference Inter vals Decision Points for 18 years and older and average body ma ss: >= 60 Does not exc lude kidney disease. 30 - 59 Suggests mod erate chronic kidney disease and indicates the need for furthe r investigation including asses sment of proteinuria and cardiovascular factors. < 30 Usually indicates a nee d for referral for assessment and management of c hronic kidney failure. XR ABDOMEN 2 VIEWS FLAT / [id number] 02:01:15PROCEDURE INFORMATION:Exam: XR Abdomen, 2 ViewsExam date [...] CDT.Dictated By: AMY ORDOÑEZDate: 09/20/2019 02:01URINALYSIS WITH [id number] 01:56:00 Test Item Value Reference Range Interpretation Comments Color (test code = UCOLR) Yellow Lt. Yellow A Clarity (test code = UCLAR) Clear Glucose (test code = UGLUC) >=1000 Negative A Bilirubin (test code = UBILI) Negative Negative N Ketones (test code = UKET) Trace Negative A Specific [place] (test code = USPGR) >=1.030 1.005-1.030 A [...] Seen,Trace A STAT LAB CBC WITH AUTO [id number] 01:38:00 Test Item Value Reference Range Interpretation [...] IG%) 0.5 % 0.0-0.[address] ABDOMEN/PELVIS W/[id number] 04:23:30PROCEDURE INFORMATION:Exam: CT Abdomen And Pelvis With [...] 20194:23 AM CDT.Dictated By: SETH MEDINADate: 08/17/2019 04:[id number] 03:34:00 Test Item Value Reference Range Interpretation Comments Lipase (test code = LIPA) 67 U/L 73-393 L [id number] 03:34:00 Test Item Value Reference Range Interpretation [...] ( 4 - SerumAlbumin)] EGFR if >60 [place] (test code mL/min/1.73m\\ = EGFRAA) S\\2 EGFR if Non- >60 Estimate d Glomerular [place] (test code mL/min/1.73m\\ Filtrat ion Rate (eGFR) [...] kidney failure. STAT LAB CBC WITH AUTO [id number] 03:19:00 Test Item Value Reference Range Interpretation [...] IG%) 0.7 % 0.0-0.4 H URINALYSIS WITH [id number] 03:10:00 Test Item Value Reference Range Interpretation Comments Color (test code = UCOLR) YELLOW Clarity (test code = UCLAR) CLEAR Glucose (test code = UGLUC) NEGATIVE NEGATIVE N Bilirubin (test code = UBILI) NEGATIVE NEGATIVE N Ketones (test code = UKET) NEGATIVE NEGATIVE N Specific [place] (test code = 1.025 1.005-1.030 A USPGR) [...] 1+ None Seen,Trace A STAT LAB , [id number] 03:03:00 Test Item Value Reference Range Interpretation Comments (Urine) (test code = Negative PREGU) ONLY AVAILABLE [id number] 20:37:00 Test Item Value Reference Range Interpretation [...] code = CREA) 0.6 mg/dl 0.6-1.2 ED2 [id number] 20:28:00 Test Item Value Reference Range Interpretation [...] = MPV) 7.1 fL 8.0-11.0 A CULTURE, [id number] 08:44:60lor7Elxdtfvw: Urine SpecimensCollected: 07/12/2019 15:00 Status: Final Last Updated: 2019 08:44 (1) err7 Culture Result (Final) (Final) Moderate Mixed Body Gabriela Isolated No Pathogens Isolated No Further Workup PerformedFL LIMITED [id number] 17:53:41Procedures: FL LIMITED IVPExam Date: 07/12/2019 3:21 PMOrdering Physician: REHAN Farrellinical Indication: [id number]: Flank painComparison: CT abdomen/pelvis, 05/17/19Findings: Frontal radiographs [...] MD07/12/2019 5:47 PMDictated By: ELMER PHAMDate: 07/12/2019 17:[id number] 15:56:00 Test Item Value Reference Range Interpretation Comments Lipase (test code = LIPA) 97 U/L 73-393 ffb7LURYTAK FUNCTION PANEL (LIVER)2019-07-12 15:56:00 Test Item Value [...] (test code = 0.2 mg/dl 0.0-1.1 IBIL) ihj4IJAGXMTIAQ WITH [id number] 15:51:00 Test Item Value Reference Range Interpretation Comments Color (test code = UCOLR) YELLOW Clarity (test code = UCLAR) CLEAR Glucose (test code = UGLUC) NEGATIVE NEGATIVE N Bilirubin (test code = UBILI) NEGATIVE NEGATIVE N Ketones (test code = UKET) NEGATIVE NEGATIVE N Specific [place] (test code = 1.020 1.005-1.030 A USPGR) [...] code = UBACT) 4+ None Seen,Trace A ktt2NMSA LAB CHEM [id number] 15:09:00 Test Item Value Reference Range Interpretation [...] (test code = CREA) 0.6 mg/dl 0.6-1.3 zsn1XTYT LAB CBC WITH AUTO [id number] 15:08:00 Test Item Value Reference Range Interpretation [...] = IG%) 0.4 % 0.0-0.[address] ABDOMEN/PELVIS W/[id number] 16:33:46NPO 4 hours. Do not withhold medsProcedures: CT ABDOMEN/PELVIS W/CONTRASTExam Date: 05/17/2019 1:31 PMOrdering Physician: MERLE LYNNEClinical Indication: [id number]: Abdominal painComparison: CT abdomen/pelvis, 04/09/19TECHNIQUE: Spiral multislice [...] changes of the spine; otherwise, no significant osseou slesions.OTHER: No significant abnormality of the remaining soft tissuesIMPRESSION:1. Moderate to large stool burden in the colon may represent constipation;otherwise, no significant abnormalities werepresent to explain the patient'sabdominal pain complaint.2. Chronic findings, as above.This final rep ort was electronically signed by Dr Elmer Juárez MD05/17/2019 4:27 PMDictated By: ELMER PHAMDate: 05/17/2019 16:[id number] 16:20:00 Test Item Value Reference Range Interpretation Comments Lipase (test code = LIPA) 70 U/L 73-393 L STAT LAB CHEM [id number] 15:24:00 Test Item Value Reference Range Interpretation [...] 0.5 mg/dl 0.6-1.3 L STAT LAB LACTIC [id number] 15:23:00 Test Item Value Reference Range Interpretation Comments LACTATE (test code = LAC) 1.39 mmol/l 0.90-1.70 STAT LAB CBC WITH AUTO [id number] 15:21:00 Test Item Value Reference Range Interpretation [...] IG%) 0.5 % 0.0-0.4 H URINALYSIS WITH [id number] 15:08:00 Test Item Value Reference Range Interpretation Comments Color (test code = UCOLR) YELLOW Clarity (test code = UCLAR) CLEAR Glucose (test code = UGLUC) NEGATIVE NEGATIVE N Bilirubin (test code = UBILI) NEGATIVE NEGATIVE N Ketones (test code = UKET) NEGATIVE NEGATIVE N Specific [place] (test code = 1.025 1.005-1.030 A USPGR) [...] None Seen,Trace A CT ANGIO HEAD W/WO [id number] 16:28:5720 g Cathlon Above the Antecubital or higher requiredProcedure: CT ANGIO HEAD W/WO CONTRASTOrder Date: 05/12/2019 3:30 PMOrdering Provider: REHAN Farrellinical Indication: [id number]: HeadacheComparison: NoneTechnique: Using a helical scanner, sequential axial imaging of the brain wasobtained before and after the administration of the contrast medium. At anindependent workstation, 3-D reconstructions of the the [place] wereobtained.This examwas performed according to [...] By: FARZAD DEWITTDate: 05/12/2019 16:22 CT ABDOMEN/PELVIS W/[id number] 14:36:05NPO 4 hours. Do not withhold meds [...] subsegmental atelectasis.HEPATOBILIARY: Diffuse hepatic steatosis is present. The gallbladder issurgically absent.SPLEEN: No splenomegaly.PANCREAS: No focal masses or ductal dilatation.ADRENALS: No adrenal nodules.KIDNEYS/URETERS: 1 mm nonobstructing stone in the interpolar region of the rightkidney. The kidneys are otherwise unremarkable.PELVIC ORGANS/BLADDER: Bladder is unremarkable.PERITONEUM / RETROPERITONEUM: Small volume free fluid is present in the pelvis.Uterus is surgically absent.LYMPH NODES: No lymphadenopathy.VESSELS: Unremarkable.GI TRACT: No distention or wall thicken ing. Postoperative changes of previousgastric sleeve type surgery.BONES AND SOFT TISSUES: There is asmall fat-containing umbilical hernia. Thehernia neck measures 16 [...] Dr Silver Benitez MD 04/09/20192:29 PMDictated By: Maggie BENITEZte: 04/09/2019 14:29CBC WITH AUTO [id number] 09:02:00 Test Item Value Reference Range Interpretation [...] % 0.0-0.4 H IG%) CBC WITH AUTO [id number] 09:14:00 Test Item Value Reference Range Interpretation [...] (test code = 0.4 % 0.0-0.4 IG%) [id number] 09:12:00 Test Item Value Reference Range Interpretation [...] 0.5-1.3 code = CREA) EGFR if >60 [place] (test code mL/min/1.73m\\ = EGFRAA) S\\2 EGFR if Non- >60 Estimate d Glomerular [place] (test code mL/min/1.73m\\ Filtrat ion Rate (eGFR) [...] PLMNT MIDLINE NO PORT > 6 y/o W/[id number] 16:11:23Procedure: SP PERC PLMNT MIDLINE NO PORT [...] PMDictated By: WILEY VELÁZQUEZDate: 04/07/2019 16:05CT ABDOMEN/PELVIS W/[id number] 22:50:40PROCEDURE INFORMATION:Exam: CT Abdomen and pelvis with [...] 10:50 PM CDT.Dictated By: ELMER PHAMDate: 04/04/2019 22:[id number] 21:22:00 Test Item Value Reference Range Interpretation [...] 0.3 mg/dl 0.0-1.1 IBIL) STAT LAB CHEM [id number] 21:07:00 Test Item Value Reference Range Interpretation [...] 0.6 mg/dl 0.6-1.3 STAT LAB URINALYSIS WITHOUT [id number] 21:05:00 Test Item Value Reference Range Interpretation Comments Color (test code = UCOLR) Yellow Lt. Yellow A Clarity (test code = UCLAR) Slightly Cloudy Glucose (test code = UGLUC) 100 Negative A Bilirubin (test code = UBILI) Negative Negative N Ketones (test code = UKET) Negative Negative N Specific [place] (test code = >=1.030 1.005-1.030 A USPGR) Blood (test code = UBLD) Negative Negative N PH (test code = UPH) 5.5 4.5-8.0 A Protein (test code = UPROT) Negative Negative N Urobilinogen (test code = U 0.2 >0.2 N UROB) Nitrite (test code = UNITR) Negative Negative N Leukocyte Esterase (test code Negative Negative N = ULEUK) STAT LAB CBC WITH AUTO [id number] 21:04:00 Test Item Value Reference Range Interpretation [...] 0.5 % 0.0-0.4 H STAT LAB , [id number] 21:04:00 Test Item Value Reference Range Interpretation Comments (Urine) (test code = Negative PREGU) ONLY AVAILABLE [id number] 16:05:00 Test Item Value Reference Range Interpretation Comments Sodium (test code = CANCELED mmol/l The r eleased value NA) 141 was cancele d by [id number] on 04/04/2019 16:0 5 Potassium (test code CANCELED mmol/l The released value = K) 3.9 was cancele d by [id number] on 04/04/2019 16:0 5 CO2 (test code = CANCELED mmol/l The rele ased value CO2) 23 was canceled by [id number] on 04/04/2019 16:0 5 Chloride (test code CANCELED mmol/l The r eleased value = CL) 108 was cancele d by [id number] on 04/04/2019 16:0 5 Glucose (test code = CANCELED mg/dl The r eleased value GLU) 96 was canceled by [id number] on 04/04/2019 16:0 5 Calcium (test code = CANCELED mg/dl The r eleased value CALC) 8.8 was cancele d by [id number] on 04/04/2019 16:0 5 BUN (test code = CANCELED mg/dl The relea sed value BUN) 11 was canceled by [id number] on 04/04/2019 16:0 5 Creatinine (test CANCELED mg/dl code = CREA) HISTOLOGY [id number] 11:08:00 [address] [place], [place] [address]Nxeui: [phone] FUUI #: [id number] MedicalDirector: Seth Valdez M.D.Surgical Pathology Consultation ReportPatient Name: LAUREN BETH Case #: [id number] Med. Rec. #[facility][id number] [id number]: [facility]2019 : 1985(Age:33) Received: 03/23/2019 Gender: F Copy to : Reported:03/23/2019 Physician(s): Lizbeth Wolfe Specimen(s) ReceivedA: Right ovary Final Pathologic DiagnosisRight ovary and fallopian tube, right salpingo-oophorectomy:- fibrovascular adhesions of ovary and fallopian tube. - numerous follicular cysts, benign serous cysts, and corpusalbicanswithin ovarian parenchyma. Electronically Signed Out /03/23/2019 Seth Valdez MD, Board Certified in Anatomic Pathology Clinical HistoryRight ovarian cyst.Gross DescriptionThe specimen is labeled right ovary. Two pieces of lr-pinktissuemeasuring7.5 x 5 by up to 3.3 cm are received. On one of the pieces of tissuethereappears to be a fallopian tube measuring 3.2 cm in length with adiameter upto 0.5 cm. Adhesions are seen along the serosal surface of the otherpiecesof tissue. Serial sectioning reveals a solid and cystic cut surfac ewith thecyst varying in size from 1 up to 2 cm in greatest dimension. The cystsarefilled with clearserous fluid. Jewel Waxer sections of the ovaryandpossible fallopian tube are submitted in cassettes A1-A8. /03/23/2019 Seth Valdez MD, Board Certified in Anatomic Pathology Microscopic Descriptio nMicroscopic examination of the right ovary reveals fibrovascularadhesionsalong the surface of the ovary as well as along the accompanyingfallopiantube. The ovarian parenchyma contains follicular cysts, benign serouscyst,as well as numerous corpus albicans. No areas of endometriosis areseen. Billing Fee Code(s): A; 51915- US TRANSVAGINAL W/[id number] 16:45:00 Patient Name: ADELIA BETH Unit No: [id number] EXAMS: CPT CODE: [id number] US TRANSVAGINAL W/PELVIS 88817 CLINICAL HISTORY: Right lower quadrant pain. Status [...] MD Technologist: Dipesh Miranda RDMS, T Probe: [id number] Trnscrbd D/ (2045) t.MICAELAR.YOS Orig Print D/T: S: 03/10/2019 (0364) [facility] [facility] NAME: ADELIA BETH Radiology Department PHYS: SUE. - Hilaria Calder[address] : 1985 AGE: 33 SEX: F [place] [address] LOC: ALONDRA PHONE #: [phone] EXAM DATE: 03/10/2019 STATUS: REG ER FAX #: [phone] RAD NO: Page 1 Signed Report Patient Name: ADELIA BETH Unit No: [id number] EXAMS: CPT CODE: [id number] US TRANSVAGINAL W/PELVIS 63248 <Continued> [facility] [facility] NAME: ADELIA BETH Radiology Department PHYS: SUE. - Hilaria Calderón [address] : 1985 AGE: 33 SEX: F [address] [place] [address] LOC: ALONDRA PHONE #: [phone] EXAM DATE: 03/10/2019 STATUS: REG ER FAX #: [phone] RAD NO: Page 2 Signed Report- US TRANSVAGINAL W/[id number] 16:45:00 Patient Name: LAUREN BETH Unit No: [id number] EXAMS: CPT CODE: [id number] US TRANSVAGINAL W/PELVIS 33429 CLINICAL HISTORY: Right lower quadrant pain. Status [...] MD Technologist: Dipesh Miranda RDMS, T Probe: [id number] Trnscrbd D/ (1645) VereniceYOS Orig Print D/T: S: 03/10/2019 (1648) [facility] [facility] NAME: LAUREN BETH Radiology Department PHYS: [address]ilar[address] : 1985 AGE: 33 SEX: F [place], [place] [address] LOC: ALONDRA PHONE #:[phone] EXAM DATE: 03/10/2019 STATUS: [facility] FAX #: [phone] RAD NO: [id number] Page 1 Signed Report Patient Name: LAUREN BETH Unit No: [id number] EXAMS: CPT CODE: [id number] US TRANSVAGINAL W/PELVIS 13247 (Continued) [facility] [facility] NAME: LAUREN BETH Radiology Department PHYS: GUTAL. - Hilaria Calderón [address] : 1985 AGE: 33 SEX: F [place], [place] [address]JMUR NO: [id number] LOC: ALONDRA PHONE #: [phone] EXAM DATE: 03/10/2019 STATUS: [facility] ER FAX #: [phone] RAD NO: [id number] Page 2 Signed Report- US PELVIS [id number] 16:45:00 Patient Name: ADELIA BETH Unit No: [id number] EXAMS: CPT CODE: [id number] US PELVIS COMPLETE 20048 CLINICAL HISTORY: Right lower quadrant pain. Status post appendectomy. History of ovarian cyst. Real-time ultrasound examination of the pelvis was performed using transabdominal and endovaginal approach. Uterus and left ovary have been surgically removed. Right ovary is enlarged and measures 8.4 x 5.4 x 7.2 cm. It contains a hemorrhagic cyst measuring 4.6 x 3.7 x 3.9 cm and a simple cyst measuring 5.1x 4.6 x 4.4 cm. Additional smaller cyst is also present in the right ovary. Blood flow is identifiedin the wall of the cyst. There is no extraovarian adnexal mass or significant free fluid in the pelvis. IMPRESSION: 1. Status post hysterectomy and left oophorectomy. 2. Enlargement of the right ovary with hemorrhagic cyst as well as simple cyst as described above. Blood flow is identified in the right ovary. at 1645 Reported and signed by:Mario Guidry MD CC: Hilaria Calderón MD Technologist: Dipesh Miranda RDMS, RVT Probe: Trnscrbd D/ (4475) Ro Orig Print D/T: S: 03/10/2019 (6628) [facility] NAME: ADELIA BETH Radiology Department PHYS: SUE. - Hilaria Calderón [address] : 1985 AGE: 33 SEX: F [place], [place] [address] LOC: ALONDRA PHONE #: [phone] EXAM DATE: STATUS: REG ER FAX #: [phone] RAD NO: Page 1 Signed Report Patient Name: ADELIA BETH Unit No: [id number] EXAMS: CPT CODE: [id number] US PELVIS COMPLETE 98979 <Continued> [facility] NAME: ADELIA BETH Radiology Department PHYS: Hilaria Maldonado [address] : 1985 AGE: 33 SEX: F [place], [place] [address] LOC: ALONDRA PHONE #: [phone] EXAM DATE: 03/10/2019 STATUS: [facility] ER FAX #: [phone] RAD NO: Page 2 Signed Report- US PELVIS [id number] 16:45:00 Patient Name: LAUREN BETH Unit No: [id number] EXAMS: CPT CODE: [id number] US PELVIS COMPLETE 95758 CLINICAL HISTORY: Right lower quadrant pain. Status [...] flow is identified in theright ovary. at 7831 Reported and signedby: Mario Guidry MD CC: Hilaria Calderón MD Technologist: Dipesh Miranda RDMS, RVT Probe: Trnscrbd D/ (1944) SouravR.YOS Orig Print D/T: S: 03/10/2019 (1648) [facility] [facility] NAME: LAUREN BETH Radiology Department [facility] - Calderón,Hilaria [address] : 1985 AGE: 33 SEX: [place] Fernando [place], [place] [address] LOC: DayanaraERS PHONE #: [phone] EXAM DATE: 03/10/2019 STATUS: [facility] ER FAX #: [phone] RAD NO: [id number] Page 1 Signed Report Patient Name: LAUREN BETH Unit No: [id number] EXAMS: CPT CODE: [id number] US PELVIS COMPLETE 09063 (Continued) [facility] [facility] NAME: LAUREN BETH Radiology Department [facility] - Sarabjit Calderónondra [address] : 1985 AGE: 33 SEX: F [place], [place] [address] LOC: DayanaraERS PHONE #: [phone] EXAM DATE: 03/10/2019 STATUS: [facility] ER FAX #: [phone] RAD NO: [id number] Page 2 Signed ReportCBC W/AUTO DIFF 2019-03-10 [...] = PLTMR) UA RFLX MICR CULT IF [id number] 16:07:00 Test Item Value Reference Range Interpretation [...] A Indication for culture: Suprapubic PainUR HCG [id number] 16:07:00 Test Item Value Reference Range Interpretation [...] culture: Suprapubic PainUA RFLX MICR CULT IF [id number] 16:04:00 Test Item Value Reference Range Interpretation [...] EPIU) Indication for culture: Suprapubic PainUR HCG [id number] 16:04:00 Test Item Value Reference Range Interpretation [...] culture: Suprapubic PainUA RFLX MICR CULT IF [id number] 15:55:00 Test Item Value Reference Range Interpretation [...] RARE-FEW Indication for culture: Suprapubic PainUR HCG [id number] 15:55:00 Test Item Value Reference Range Interpretation [...] and tested. Indication for culture: Suprapubic PainED2 [id number] 01:18:00 Test Item Value Reference Range Interpretation [...] MPV) 6.9 fL 8.0-11.0 A ED2 URINE [id number] 00:55:00 Test Item Value Reference Range Interpretation Comments Color (test code = UCOLR) Yellow Lt. Yellow A Clarity (test code = UCLAR) Clear Glucose (test code = UGLUC) NEGATIVE NEGATIVE N Bilirubin (test code = UBILI) NEGATIVE NEGATIVE N Ketones (test code = UKET) NEGATIVE NEGATIVE N Specific [place] (test code = USPGR) 1.030 1.005-1.030 A Blood (test code = UBLD) NEGATIVE NEGATIVE N PH (test code = UPH) 6.0 4.5-8.0 A Protein (test code = UPROT) Trace NEGATIVE A Urobilinogen (test code = U UROB) 0.2 >0.2 N Nitrite (test code = UNITR) NEGATIVE NEGATIVE N Leukocyte Esterase (test code = NEGATIVE NEGATIVE N ULEUK) ED2 , [id number] 00:54:00 Test Item Value Reference Range Interpretation Comments (Urine) (test code = Negative PREGU) [id number] 13:07:00 Test Item Value Reference Range Interpretation Comments Lipase (test code = LIPA) 106 U/L 73-[address] ABDOMEN/PELVIS [id number] 12:24:12Procedures: ED2 CT ABDOMEN/PELVIS W/CONTRASTExam Date: 02/07/2019 10:11 AMOrdering Physician: WYATT Downsinical Indication: [id number]: Epigastric painComparison: CT abdomen/pelvis, 01/27/19TECHNIQUE: Spiral multislice [...] 12:17 PMDictated By: ELMER PHAMDate: 02/07/2019 12:17ED2 [id number] 10:48:00 Test Item Value Reference Range Interpretation [...] = TP) 7.6 gm/dl 6.4-8.1 ED2 URINE [id number] 10:45:00 Test Item Value Reference Range Interpretation Comments Color (test code = UCOLR) Yellow Lt. Yellow A Clarity (test code = UCLAR) Sl Cloudy Glucose (test code = UGLUC) NEGATIVE NEGATIVE N Bilirubin (test code = UBILI) NEGATIVE NEGATIVE N Ketones (test code = UKET) NEGATIVE NEGATIVE N Specific [place] (test code = 1.025 1.005-1.030 A USPGR) Blood (test code = UBLD) NEGATIVE NEGATIVE N PH (test code = UPH) 5.5 4.5-8.0 A Protein (test code = UPROT) NEGATIVE NEGATIVE N Urobilinogen (test code = U UROB) 0.2 >0.2 N Nitrite (test code = UNITR) NEGATIVE NEGATIVE N Leukocyte Esterase (test code = NEGATIVE NEGATIVE N ULEUK) ED2 , [id number] 10:45:00 Test Item Value Reference Range Interpretation Comments (Urine) (test code = Negative PREGU) ED2 [id number] 10:44:00 Test Item Value Reference Range Interpretation [...] MPV) 6.8 fL 8.0-11.[address] ABDOMEN/PELVIS [id number] 12:29:19s/p hysterectomy; rlq pain Procedure: CT ABDOMEN/PELVIS W/CONTRASTOrder Date: 01/27/2019 10:57 AMOrdering Provider: DR LEXUS CASTREJON ACOSTAClinical Indication: [id number]: Abdominal painComparison: September 30, 2018TECHNIQUE:The abdomen and [...] code = UKET) NEGATIVE NEGATIVE N Specific [place] (test code = USPGR) <=1.005 1.005-1.030 A [...] code = UBACT) Trace None Seen,Trace N [id number] 11:49:00 Test Item Value Reference Range Interpretation Comments Lipase (test code = LIPA) 91 U/L 73-393 AMYLASE, [id number] 11:49:00 Test Item Value Reference Range Interpretation Comments Amylase (test code = AMYL) 45 U/L 25-115 STAT LAB CHEM [id number] 11:25:00 Test Item Value Reference Range Interpretation [...] 0.6-1.3 L STAT LAB CBC WITH AUTO [id number] 11:23:00 Test Item Value Reference Range Interpretation [...] IG%) 0.6 % 0.0-0.4 H US PELVIS [id number] 07:55:25h/o complex right ovarian cystsProcedure: Pelvic ultrasound.CLINICAL [...] 0.1 mg/dl 0.0-1.1 IBIL) STAT LAB CHEM [id number] 02:41:00 Test Item Value Reference Range Interpretation [...] 0.6-1.3 L STAT LAB CBC WITH AUTO [id number] 02:39:00 Test Item Value Reference Range Interpretation [...] IG%) 0.5 % 0.0-0.4 H URINALYSIS WITH [id number] 02:37:00 Test Item Value Reference Range Interpretation Comments Color (test code = UCOLR) YELLOW Clarity (test code = UCLAR) CLEAR Glucose (test code = UGLUC) 500 NEGATIVE A Bilirubin (test code = UBILI) NEGATIVE NEGATIVE N Ketones (test code = UKET) TRACE NEGATIVE A Specific [place] (test code = USPGR) >=1.030 1.005-1.030 A [...] = UBACT) 2+ None Seen,Trace A CULTURE, [id number] 07:39:00CULTURE RIGHT ABDOMEN WOUND CARE DEPT Specimen: AbdomenCollected: 10/15/2018 15:48 Status: Final Last Updated: 10/17/2018 01:39 (1) CULTURE RIGHT ABDOMEN WOUND CARE DEPT Culture Result (Final) (Final) Few Staphylococcus aureus Isolate (Final) (Final) Staphylococcus aureus Ciprofloxacin <=0.5 S Clindamycin 0.25 S Daptomycin 0.25 S Eryth romycin 0.5 S Gentamicin <=0.5 S Levofloxacin <=0.12 S Linezolid 4 S Moxifloxacin <=0.25 SOxacillin 0.5 S Rifampicin <=0.5 S Tetracycline <=1 S Tigecycline <=0.12 S Trimeth/Sulfa <=10 S Vancomycin 1 S Cefoxitin Sc (+/-) Negative - ICR (+/-) Negative -XR CHEST AP/PA 1 VIEW 2018-10-01 05:15:17Procedure: XR CHEST AP/PA 1 VIEWOrder Date: 09/30/2018 8:28 PMOrdering Provider: DIMAS Haskinsinical Indication: [id number]: Acute chest painComparison: May 13, 2017Findings:Cardiac size [...] By: FARZAD DEWITTDate: 10/01/2018 05:08CT ABDOMEN/PELVIS W/O [id number] 00:42:26NPO 4 hours. Do not withhold medsEXAM:CT [...] 201812:42 AM CDT.Dictated By: REHAN AZARDate: 10/01/2018 00:42LIPASE 2018-09-30 21:37:00 Test Item Value [...] 0.5 mg/dl 0.0-1.1 IBIL) STAT LAB CHEM [id number] 21:10:00 Test Item Value Reference Range Interpretation [...] 0.6-1.3 L STAT LAB CBC WITH AUTO [id number] 21:09:00 Test Item Value Reference Range Interpretation [...] = IG%) 0.3 % 0.0-0.4 OVARY W/WO TUBE,[id number] 12:44:00 RUN DATE: 09/04/18 [facility] PAGE 1 RUN TIME: 1454 Specimen Inquiry RUN USER: INTERFACE -[facility]: [id number] [facility] U #: [id number] AGE/SX: 33/F ROOM: [facility] RE09/02/18REG DR: Elmer Flores : [birth year] BED: A DIS: 09/03/18 STATUS: DIS [place] TLOC: SPEC #: [id number] RECD: 09/02/18 STATUS: KWAME GARCIA #: [id number] MELISSA: 09/02/18- [facility] DR: Elmer Flores III ENTERED: 09/03/18 SP TYPE: GERMANAdela PIERCE DR: ORDERED: LEVEL IV CODES: [id number] - OVARY, NOS PROCEDURES: LEVEL IV (Incomplete) TISSUES: OVARY, NOS - RIGHT OVARIAN CYST CLINICAL HISTORY 33 year old, acute pelvic pain (wpd) FINAL DIAGNOSIS Right ovarian cyst, excision: - benign simple cyst of ovary Tissue code 1 CPT code(s): 98030 [facility] 09/04/18 GROSS DESCRIPTION ANATOMIC [...] with multiple yellow-orange, centrally hemorrhagic corpora lutea. Jewel Waxer sections are submitted as A and B. telma/wpchin 09/03/18 @ 1343 Signed Amaris Wharton MD 09/04/18 1244 END OF REPORT CBC W/AUTO DIFF 2018-09-03 03:10:00 Test Item Value Reference Range Interpretation [...] NORMAL NORMAL code = PLTMR) CHEMISTRY 7 [id number] 14:15:00 Test Item Value Reference Range Interpretation [...] CA) 9.2 mg/dL 8.4-10.2 N CBC W/AUTO [id number] 13:42:00 Test Item Value Reference Range Interpretation [...] NORMAL NORMAL code = PLTMR) US INTRAVAGINAL [id number] 12:35:09Procedure: Pelvic ultrasound.CLINICAL INDICATION: Pelvic pain. Status [...] VELÁZQUEZDate: 09/01/2018 12:28STAT LAB CBC WITH AUTO [id number] 11:31:00 Test Item Value Reference Range Interpretation [...] 09/01/2018 11:31 ONLY AVAILABLE 8A-12MNCT ABDOMEN/PELVIS W/O [id number] 11:11:01MLP C Procedure: CT ABDOMEN/PELVIS W/O CONTRASTOrder Date: 09/01/2018 9:28 AMOrdering Provider: CHIN Guilleninical Indication: [id number]: Abdominal pain. Left lower quadrant painComparison: 12/24/2017TECHNIQUE:CT [...] AMDictatedBy: GLORY BENITEZKDate: 09/01/2018 11:04STAT LAB CHEM [id number] 10:26:00 Test Item Value Reference Range Interpretation [...] L ONLY AVAILABLE 8A-12MNSTAT LAB URINALYSIS WITHOUT [id number] 09:59:00 Test Item Value Reference Range Interpretation Comments Color (test code = UCOLR) Yellow Lt. Yellow A Clarity (test code = UCLAR) Clear Glucose (test code = UGLUC) NEGATIVE Negative A Bilirubin (test code = UBILI) NEGATIVE Negative A Ketones (test code = UKET) NEGATIVE Negative A Specific [place] (test code = USPGR) 1.015 1.005-1.030 A Blood (test code = UBLD) NEGATIVE Negative A PH (test code = UPH) 7.0 4.5-8.0 A Protein (test code = UPROT) NEGATIVE Negative A Urobilinogen (test code = U UROB) 0.2 >0.2 N Nitrite (test code = UNITR) NEGATIVE Negative A Leukocyte Esterase (test code = NEGATIVE Negative A ULEUK) ONLY AVAILABLE 8A-12MNUS INTRAVAGINAL [id number] 13:26:23Procedure: Pelvic ultrasound.CLINICAL INDICATION: PELVIC PAIN: Pain-Pelvic. [...] VELÁZQUEZDate: 05/13/2018 13:20STAT LAB CBC WITH AUTO [id number] 12:22:00 Test Item Value Reference Range Interpretation [...] 0.0-0.4 IG%) STAT LAB CBC WITH AUTO [id number] 11:54:00 Test Item Value Reference Range Interpretation [...] IG%) ONLY AVAILABLE 8A-12MNSTAT LAB URINALYSIS WITHOUT [id number] 11:25:00 Test Item Value Reference Range Interpretation Comments Color (test code = UCOLR) Yellow Lt. Yellow A Clarity (test code = UCLAR) Clear Glucose (test code = UGLUC) NEGATIVE Negative A Bilirubin (test code = UBILI) NEGATIVE Negative A Ketones (test code = UKET) NEGATIVE Negative A Specific [place] (test code = USPGR) 1.020 1.005-1.030 A Blood (test code = UBLD) NEGATIVE Negative A PH (test code = UPH) 7.0 4.5-8.0 A Protein (test code = UPROT) NEGATIVE Negative A Urobilinogen (test code = U UROB) 0.2 >0.2 N Nitrite (test code = UNITR) NEGATIVE Negative A Leukocyte Esterase (test code = NEGATIVE Negative A ULEUK) ONLY AVAILABLE 8A-12MNSTAT LAB , [id number] 11:25:00 Test Item Value Reference Range Interpretation Comments (Urine) (test code = Negative PREGU) ONLY AVAILABLE 8A-12MNSTAT LAB CHEM [id number] 11:23:00 Test Item Value Reference Range Interpretation [...] mg/dl 0.6-1.3 L ONLY AVAILABLE 8A-12MNUS INTRAVAGINAL [id number] 12:50:53Procedure: Pelvic ultrasound.CLINICAL INDICATION: Right adnexal mass. [...] PMDictated By: WILEY VELÁZQUEZDate: 12/24/2017 12:50URINALYSIS WITH [id number] 10:22:00 Test Item Value Reference Range Interpretation Comments Color (test code = UCOLR) Yellow Clarity (test code = UCLAR) Clear Glucose (test code = UGLUC) NEGATIVE NEGATIVE N Bilirubin (test code = UBILI) NEGATIVE NEGATIVE N Ketones (test code = UKET) NEGATIVE NEGATIVE N Specific [place] (test code = USPGR) 1.025 1.005-1.030 A [...] = UBACT) Trace None Seen,Trace N LIPASE, [id number] 10:05:00 Test Item Value Reference Range Interpretation Comments Lipase (test code = LIPA) 40 U/L 8-223 [id number] 10:05:00 Test Item Value Reference Range Interpretation [...] ( 4 - SerumAlbumin)] EGFR if >60 [place] (test code mL/min/1.73m\\ = EGFRAA) S\\2 EGFR if Non- >60 Estimate d Glomerular [place] (test code mL/min/1.73m\\ Filtrat ion Rate (eGFR) [...] MD 12/24/20179:32 AMDictated By: WILEY VELÁZQUEZDate: 12/24/2017 09:38[facility] WITH AUTO [id number] 09:26:00 Test Item Value Reference Range Interpretation [...] code = UKET) NEGATIVE NEGATIVE N Specific [place] (test code = 1.020 1.005-1.030 A USPGR) [...] UBACT) None Seen None Seen,Trace N er [id number] 03:07:00 Test Item Value Reference Range Interpretation [...] ( 4 - SerumAlbumin)] EGFR if >60 [place] (test code mL/min/1.73m\\ = EGFRAA) S\\2 EGFR if Non- >60 Estimate d Glomerular [place] (test code mL/min/1.73m\\ Filtrat ion Rate (eGFR) [...] of c hronic kidney failure. er 16LIPASE, [id number] 03:07:00 Test Item Value Reference Range Interpretation Comments Lipase (test code = LIPA) 61 U/L 8-223 er 16CBC WITH AUTO [id number] 03:05:00 Test Item Value Reference Range Interpretation [...] 0.0-0.4 IG%) er 16XR CHEST 2 PA [id number] 19:56:04Procedure: XR CHEST 2 PA LATERALExam date: 05/13/2017 3:53 PMOrdering Provider: DR ASA BLOOMClinical Indication: fatigue, Chest painComparison: March 15, 2016Findings:Cardiomediastinal silhouette is within normal limits.The lungs are clear.No pleural effusion or pneumothorax. Osseous structures are nonacute.No evidence of active tuberculosis.Impression:No acute cardiopulmonary process.This final report was electronically signed by Dr Wiley Velázquez MD 05/13/20177:49 PMDictated By: WILEY VELÁZQUEZDate: 05/13/2017 19:[id number] 16:53:00 Test Item Value Reference Range Interpretation [...] ( 4 - SerumAlbumin)] EGFR if >60 [place] (test code mL/min/1.73m\\ = EGFRAA) S\\2 EGFR if Non- >60 Estimate d Glomerular [place] (test code mL/min/1.73m\\ Filtrat ion Rate (eGFR) [...] NOTED ON THE RE PORT. URINALYSIS WITH [id number] 18:25:00 Test Item Value Reference Range Interpretation Comments Color (test code = UCOLR) YELLOW Clarity (test code = UCLAR) CLEAR Glucose (test code = UGLUC) NEGATIVE NEGATIVE N Bilirubin (test code = UBILI) NEGATIVE NEGATIVE N Ketones (test code = UKET) NEGATIVE NEGATIVE N Specific [place] (test code = 1.025 1.005-1.030 A USPGR) [...] (test code = 0.1 mg/dl 0.0-1.1 IBIL) [id number] 18:21:00 Test Item Value Reference Range Interpretation [...] mg/dl 8.4-10.2 = CALC) EGFR if >60 [place] (test code mL/min/1.73m\\ = EGFRAA) S\\2 EGFR if Non- >60 Estimate d Glomerular [place] (test code mL/min/1.73m\\ Filtrat ion Rate (eGFR) = EGFRNA) S\\2 Reference Inter vals Decision Points for 18 years and older and average body ma ss: >= 60 Does not exc lude kidney disease. 30 - 59 Suggests mod erate chronic kidney disease and indicates the need for furthe r investigation including asses sment of proteinuria and cardiovascular factors. < 30 Usually indicates a nee d for referral for assessment and management of c hronic kidney failure. CBC WITH AUTO [id number] 18:04:00 Test Item Value Reference Range Interpretation [...]
[2022-03-11] MEDS ORDERED: PROMETHAZINE INJ 25 MG/ML AMP ONE (22:56)
[2022-03-11] MEDS ORDERED: FAMOTIDINE 20 MG/2 ML VIAL IV ONE (22:56)
[2022-03-11] MEDS ORDERED: NA CHLORIDE 0.9% 1,000 ML ONE (22:56)
[2022-03-11] MEDS ORDERED: HYDROMORPHONE HCL 1 MG/ML INJ ONE (22:56)
[2022-03-11 23:27] LABS: Absolute Lymphocytes (CBC) 2.5 K/uL (0.7-4.9); Lymphocytes % 33.9 % (15.3-44.8); MCV 86.6 fL (80-100); MPV 6.9 fL (7.6-11.3); RBC Red Blood Cell Count 4.15 M/uL (3.86-4.86)
[2022-03-11] MEDS ORDERED: MEPERIDINE HCL 50 MG/ML ONE (23:36)
[2022-03-11 23:37] LABS: Albumin 3.2 g/dL (3.4-5.0); Bilirubin Total 0.2 mg/dL (0.2-1.0); Potassium 3.1 mmol/L (3.5-5.1); Protein, Total 6.9 g/dL (6.4-8.2)
[2022-03-12] MEDS ORDERED: KCL 20 MEQ/100 mL IVPB 100 ML IV ONE (00:44)
[2022-03-12] MEDS ORDERED: SIMETHICONE 80 MG TAB ONE (00:44)
--- NOTE | 2022-03-12 01:04 | ER ---
Nurse's Notes [facility] Name: Hong Pace Age: 36 yrs Sex: Female : 1985 Arrival Date: 03/11/2022 Time: 21:59 Bed 8 Private MD: Diagnosis: Abdominal pain, unspecified;Hypokalemia Presentation: 03/11 22:27 Chief complaint: Patient states: I have this abdominal pain and nausea that started ha1 today at 7 pm. since symptoms started I have vomited about four times. Coronavirus screen: Vaccine status: Patient reports being unvaccinated. Ebola Screen: No symptoms or risks identified at this time. Initial Sepsis Screen: Does the patient meet any 2 criteria? No. Patient's initial sepsis screen is negative. Does the patient have a suspected source of infection? No. Patient's initial sepsis screen is negative. Risk Assessment: Do you want to hurt yourself or someone else? Patient reports no desire to harm self or others. Onset of symptoms was March 11, 2022. 22:27 Method Of Arrival: Ambulatory ha1 22:27 Acuity: [place] 3 ha1 Triage Assessment: 22:32 General: Appears ill, Behavior is calm, cooperative. Pain: Complains of pain in left ha1 side of the lower quadrant of abdomen. 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 - Social history:: Smoking status: Patient reports the use of cigarette tobacco products, one pack per week. Screenin:34 Abuse screen: Denies threats or abuse. Denies injuries from another. Nutritional aa9 screening: No deficits noted. Tuberculosis screening: No symptoms or risk factors identified. Fall Risk None identified. Assessment: 22:33 General: Appears uncomfortable, Behavior is cooperative, anxious. Pain: Complains of aa9 pain in left lower quadrant. Respiratory: Airway is patent Trachea midline Respiratory effort is even, unlabored, Respiratory pattern is regular, symmetrical. GI: Bowel sounds present X 4 quads. Abd is soft X 4 quads Abdomen is tender to palpation in left lower quadrant Reports nausea, vomiting, since 7 pm. 22:49 Reassessment: Patient and/or family updated on plan of care and expected duration. Pain aa9 level reassessed. Patient is alert, oriented x 3, equal unlabored respirations, skin warm/dry/pink. 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 03/12 00:41 General: pt refused potassium replacement, Notified Water MANAGER CLINICAL RESEARCH. aa9 Vital Signs: 03/11 22:27 BP 129 / 88; Pulse 79; Resp 17; Temp 98.8; Pulse Ox 98% ; Weight 108.86 kg; Height 5 ha1 ft. 4 in. (162.56 cm); Pain 9/10; 22:35 BP 145 / 82; Pulse 119; Pulse Ox 99% on R/A; Pain 9/10; aa9 23:16 BP 125 / 84; Pulse 99; Resp 17 S; Pulse Ox 98% on R/A; aa9 23:31 BP 138 / 94; Pulse 101; Resp 18 S; Pulse Ox 96% on R/A; aa9 03/12 00:42 BP 107 / 77; Pulse 96; Resp 18 S; Pulse Ox 99% on R/A; as6 03/11 22:27 Body Mass Index 41.20 (108.86 kg, 162.56 cm) ha1 ED Course: 03/11 21:59 Patient arrived in ED. ja2 22:02 Christal Dick FNP-C is PHCP. snw 22:02 Rosalino Tucker DO is Attending Physician. snw 22:19 Uday Smith, RN is Primary Nurse. as6 22:32 Triage completed. ha1 22:32 Arm band placed on right wrist. ha1 22:35 Arm band placed on. aa9 22:35 Allergy band placed. Bed in low position. Call light in reach. Side rails up X2. aa9 23:01 Inserted saline lock: 20 gauge in right antecubital area, using aseptic technique. aa9 Blood collected. 23:07 CBC with Diff Sent. aa9 23:07 CMP Sent. aa9 23:07 Lipase Sent. aa9 03/12 00:58 CT Abd/Pelvis - IV Contrast Only In Process Unspecified. EDMS 01:18 No provider procedures requiring assistance completed. IV discontinued, intact, as6 bleeding controlled, No redness/swelling at site. Pressure dressing applied. Administered Medications: 03/11 23:07 Drug: NS 0.9% 1000 ml Route: IV; Rate: 1 bolus; Site: right antecubital; aa9 03/12 01:17 Follow up: Response: No adverse reaction; IV Status: Completed infusion; IV Intake: as6 1000ml 03/11 23:07 Drug: Pepcid (famotidine) 20 mg Route: IVP; Site: right antecubital; aa9 23:31 Follow up: Response: No adverse reaction aa9 23:07 Drug: Phenergan (promethazine) 25 mg Route: IM; Site: left vastus lateralis; aa9 23:31 Follow up: Response: No adverse reaction aa9 23:08 Drug: Dilaudid (HYDROmorphone) 1 mg Route: IVP; Site: right antecubital; aa9 23:31 Follow up: Response: No adverse reaction; Pain is unchanged, physician notified; RASS: aa9 Alert and Calm (0) 23:30 Drug: Demerol (meperidine) 50 mg Route: IVP; Site: right antecubital; aa9 03/12 00:39 Follow up: Response: No adverse reaction aa9 00:39 Drug: Simethicone 240 mg Route: PO; aa9 01:17 Follow up: Response: No adverse reaction as6 00:40 Not Given (Patient Refused): Potassium Chloride 20 mEq IV at calculated rate once; aa9 administer over 1-2 hours 01:16 Drug: Potassium Chloride 40 mEq Route: PO; as6 01:17 Follow up: Response: No adverse reaction as6 01:16 Drug: [place] (HYDROcodone-acetaminophen) 10 mg-325 mg 1 tabs Route: PO; as6 01:17 Follow up: Response: No adverse reaction as6 01:16 Drug: fentaNYL (PF) 25 mcg Route: IM; Site: right ventrogluteal; as6 01:17 Follow up: Response: No adverse reaction as6 Medication: 01:18 VIS not applicable for this client. as6 Intake: 01:17 IV: 1000ml; Total: 1000ml. as6 Outcome: 01:04 Discharge ordered by MD. crow 01:18 Discharged to home ambulatory. as6 01:18 Condition: stable 01:18 Discharge instructions given to patient, Instructed on discharge instructions, follow up and referral plans. medication usage, Demonstrated understanding of instructions, follow-up care, medications, Prescriptions given X 2. 01:22 Patient left the ED. as6 Signatures: Dispatcher [employer] EDChristal Harley, YESSYC ASSET PROTECTION MANAGER-Netta Estevez LeslieUday Ruiz, RN RN as6 Dayami Ventura RN RN aa9 Rachel Valencia RN RN ha1 Corrections: (The following items were deleted from the chart) 03/11 23:25 23:17 Reassessment: Patient and/or family updated on plan of care and expected aa9 duration. Pain level reassessed. Patient is alert, oriented x 3, equal unlabored respirations, skin warm/dry/pink. aa9
--- NOTE | 2022-03-12 01:04 | EDPHYS ---
Physician Documentation [facility] Name: Hnog Pace Age: 36 yrs Sex: Female : 1985 Arrival Date: 03/11/2022 Time: 21:59 Bed 8 Private MD: ED Physician Rosalino Tucker HPI: 03/11 23:15 This 36 yrs old Female presents to ER via Ambulatory with complaints of Abdominal Pain. snw 23:15 The patient presents with abdominal pain in the upper abdomen. Onset: The snw symptoms/episode began/occurred suddenly, at 19:00. The symptoms do not radiate. Associated signs and symptoms: Pertinent positives: nausea, vomiting. The symptoms are described as sharp, shooting. Severity of pain: At its worst the pain was severe in the emergency department the pain is unchanged. The patient has experienced similar episodes in the past, multiple times. pt has had oophorectomy, hysterectomy, hernia repair, mesh placement, appendectomy, cholecystectomy, scar tissue/adhesion removal. 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 - Social history:: Smoking status: Patient reports the use of cigarette tobacco products, one pack per week. ROS: 23:14 Constitutional: Negative for fever, chills, and weight loss, Eyes: Negative for injury, snw pain, redness, and discharge, ENT: Negative for injury, pain, and discharge, Neck: Negative for injury, pain, and swelling, Cardiovascular: Negative for chest pain, palpitations, and edema, Respiratory: Negative for shortness of breath, cough, wheezing, and pleuritic chest pain. 23:14 Back: Negative for injury and pain, : Negative for injury, bleeding, discharge, and swelling, MS/Extremity: Negative for injury and deformity, Skin: Negative for injury, rash, and discoloration, Neuro: Negative for headache, weakness, numbness, tingling, and seizure, Psych: Negative for depression, anxiety, suicide ideation, homicidal ideation, and hallucinations. 23:14 Abdomen/GI: Positive for abdominal pain, nausea and vomiting, abdominal cramps, abdominal distension. Exam: 23:11 Constitutional: This is a well developed, well nourished patient who is awake, alert, snw and in no acute distress. Head/Face: Normocephalic, atraumatic. Eyes: Pupils equal round and reactive to light, extra-ocular motions intact. Lids and lashes normal. Conjunctiva and sclera are non-icteric and not injected. Cornea within normal limits. Periorbital areas with no swelling, redness, or edema. ENT: Nares patent. No nasal discharge, no septal abnormalities noted. Tympanic membranes are normal and external auditory canals are clear. Oropharynx with no redness, swelling, or masses, exudates, or evidence of obstruction, uvula midline. Mucous membranes moist. Neck: Trachea midline, no thyromegaly or masses palpated, and no cervical lymphadenopathy. Supple, full range of motion without nuchal rigidity, or vertebral point tenderness. No Meningismus. Chest/axilla: Normal chest wall appearance and motion. Nontender with no deformity. No lesions are appreciated. Cardiovascular: Regular rate and rhythm with a normal S1 and S2. No gallops, murmurs, or rubs. Normal PMI, no JVD. No pulse deficits. Respiratory: Lungs have equal breath sounds bilaterally, clear to auscultation and percussion. No rales, rhonchi or wheezes noted. No increased work of breathing, no retractions or nasal flaring. Back: No spinal tenderness. No costovertebral tenderness. Full range of motion. Skin: Warm, dry with normal turgor. Normal color with no rashes, no lesions, and no evidence of cellulitis. MS/ Extremity: Pulses equal, no cyanosis. Neurovascular intact. Full, normal range of motion. Neuro: Awake and alert, GCS 15, oriented to person, place, time, and situation. Cranial nerves II-XII grossly intact. Motor strength 5/5 in all extremities. Sensory grossly intact. Cerebellar exam normal. Normal gait. Psych: Awake, alert, with orientation to person, place and time. Behavior, mood, and affect are within normal limits. 23:11 Abdomen/GI: Inspection: abdomen appears normal, Bowel sounds: diminished, Palpation: moderate abdominal tenderness, in the umbilical area and left upper quadrant. Vital Signs: 22:27 BP 129 / 88; Pulse 79; Resp 17; Temp 98.8; Pulse Ox 98% ; Weight 108.86 kg; Height 5 ha1 ft. 4 in. (162.56 cm); Pain 9/10; 22:35 BP 145 / 82; Pulse 119; Pulse Ox 99% on R/A; Pain 9/10; aa9 23:16 BP 125 / 84; Pulse 99; Resp 17 S; Pulse Ox 98% on R/A; aa9 23:31 BP 138 / 94; Pulse 101; Resp 18 S; Pulse Ox 96% on R/A; aa9 03/12 00:42 BP 107 / 77; Pulse 96; Resp 18 S; Pulse Ox 99% on R/A; as6 03/11 22:27 Body Mass Index 41.20 (108.86 kg, 162.56 cm) ha1 MDM: 03/11 22:32 Patient medically screened. snw 23:12 Data reviewed: vital signs, nurses notes. Data interpreted: Pulse oximetry: on room air snw is 99 %. Interpretation: normal. Counseling: I had a detailed discussion with the patient and/or guardian regarding: the historical points, exam findings, and any diagnostic results supporting the discharge/admit diagnosis, lab results, the need for outpatient follow up, to return to the emergency department if symptoms worsen or persist or if there are any questions or concerns that arise at home. Special discussion: I have referred the patient to see his PCP for further evaluation of high blood pressure. Based on the history and exam findings, there is no indication for further emergent testing or inpatient evaluation. I discussed with the patient/guardian the need to see the primary care provider for further evaluation of the symptoms. 03/11 22:40 Order name: CBC with Diff snw 03/11 22:40 Order name: CMP snw 03/11 22:40 Order name: Lipase snw 03/11 23:29 Order name: CBC with Automated Diff EDMS 03/11 23:37 Order name: Comprehensive Metabolic Panel EDMS 03/11 23:37 Order name: Lipase EDMS 03/11 22:40 Order name: CT Abd/Pelvis - IV Contrast Only snw 03/11 22:40 Order name: IV Saline Lock; Complete Time: 23:07 snw 03/11 22:40 Order name: Labs collected and sent; Complete Time: 23:07 snw Administered Medications: 23:07 Drug: NS 0.9% 1000 ml Route: IV; Rate: 1 bolus; Site: right antecubital; aa9 03/12 01:17 Follow up: Response: No adverse reaction; IV Status: Completed infusion; IV Intake: as6 1000ml 03/11 23:07 Drug: Pepcid (famotidine) 20 mg Route: IVP; Site: right antecubital; aa9 23:31 Follow up: Response: No adverse reaction aa9 23:07 Drug: Phenergan (promethazine) 25 mg Route: IM; Site: left vastus lateralis; aa9 23:31 Follow up: Response: No adverse reaction aa9 23:08 Drug: Dilaudid (HYDROmorphone) 1 mg Route: IVP; Site: right antecubital; aa9 23:31 Follow up: Response: No adverse reaction; Pain is unchanged, physician notified; RASS: aa9 Alert and Calm (0) 23:30 Drug: Demerol (meperidine) 50 mg Route: IVP; Site: right antecubital; aa9 03/12 00:39 Follow up: Response: No adverse reaction aa9 00:39 Drug: Simethicone 240 mg Route: PO; aa9 01:17 Follow up: Response: No adverse reaction as6 00:40 Not Given (Patient Refused): Potassium Chloride 20 mEq IV at calculated rate once; aa9 administer over 1-2 hours 01:16 Drug: Potassium Chloride 40 mEq Route: PO; as6 01:17 Follow up: Response: No adverse reaction as6 01:16 Drug: [place] (HYDROcodone-acetaminophen) 10 mg-325 mg 1 tabs Route: PO; as6 01:17 Follow up: Response: No adverse reaction as6 01:16 Drug: fentaNYL (PF) 25 mcg Route: IM; Site: right ventrogluteal; as6 01:17 Follow up: Response: No adverse reaction as6 Disposition: 04:13 Co-signature as Attending Physician, Rosalino CUENCA was immediately available on-site ms3 in the Emergency Department for consultation in the care of the patient. Disposition Summary: 03/12/22 01:04 Discharge Ordered Location: Home snw Condition: Stable snw Diagnosis - Abdominal pain, unspecified snw - Hypokalemia snw Followup: snw - With: Emergency Department - When: As needed - Reason: Worsening of condition Followup: snw - With: Private Physician - When: 1 - 2 days - Reason: Recheck today's complaints, Continuance of care, Re-evaluation by your physician Discharge Instructions: - Discharge Summary Sheet snw - Abdominal Pain, Adult snw - Potassium Content of Foods snw - Gas and Gas Pains, Pediatric snw - Hypokalemia snw Forms: - Medication Reconciliation Form snw - Thank You Letter snw - Antibiotic Education snw - Prescription Opioid Use snw Prescriptions: - promethazine 25 mg Oral Tablet - take 1 tablet by ORAL route every 6 hours As needed; 20 tablet; Refills: 0, snw Product Selection Permitted - dicyclomine 20 mg Oral Tablet - take 1 tablet by ORAL route 3 times per day; 21 tablet; Refills: 0, Product snw Selection Permitted Signatures: Dispatcher [employer] EDMS Christal Dick FNP-C PAYROLL AND BENEFITS ANALYST-CsnRosalino Delcid, DO ms3 Uday Smith RN RN as6 Dayami Ventura, RN RN aa9 Rachel Valencia, RN RN ha1 Corrections: (The following items were deleted from the chart) 03/11 23:15 23:13 Constitutional: Positive for body aches, fever, malaise, snw snw 23:15 23:13 Eyes: Negative for injury, pain, redness, and discharge, snw snw 23:15 23:13 ENT: Positive for ear pain, snw snw 23:15 23:13 Neck: Negative for injury, pain, and swelling, Cardiovascular: Negative for chest snw pain, palpitations, and edema, snw 23:15 23:13 Respiratory: Positive for cough, with no reported sputum, shortness of breath, snw wheezing, snw 23:15 23:13 Abdomen/GI: Negative for abdominal pain, nausea, vomiting, diarrhea, and snw constipation, Back: Negative for injury and pain, : Negative for injury, bleeding, discharge, and swelling, MS/Extremity: Negative for injury and deformity, Skin: Negative for injury, rash, and discoloration, Neuro: Negative for headache, weakness, numbness, tingling, and seizure, Psych: Negative for depression, anxiety, suicide ideation, homicidal ideation, and hallucinations, snw
[2022-03-12] MEDS ORDERED: HYDROCODONE/APAP 10/325 TAB ONE (01:15)
[2022-03-12] MEDS ORDERED: POTASSIUM CL SA 10 MEQ TAB PO ONE (01:15)
[2022-03-12] MEDS ORDERED: FENTANYL CITR 100 MCG/2 ML ONE (01:22)
[2022-03-12 04:16] VITALS: TEMP 98.8
[2022-03-12 04:46] VITALS: BP 107/77; O2SAT 99
--- NOTE | 2022-03-12 12:28 | RAD REPORT ---
EXAM DESCRIPTION: CT Abdomen and Pelvis With Intravenous Contrast CLINICAL HISTORY: The patient is 36 years old and is Female; abdominal pain TECHNIQUE: Axial computed tomography images of the abdomen and pelvis with intravenous contrast. S agittal and coronal reformatted images were created and reviewed. This CT exam was performed using one or more of the following dose reduction techniques: automated exposure control, adjustment of t he mA and/or kV according to patient size, and/or use of iterative reconstruction technique. COMPARISON: No relevant prior studies available. FINDINGS: Lung bases: Unremarkable. No mass. No consolidation. ABDOMEN: Liver: Unremarkable. No mass. Gallbladder and bile ducts: Gallbladder is surgically absent. No ductal dilation. Pancreas: Unremarkable. No mass. No ductal dilation. Spleen: Unremarkable. No splenomegaly. Adrenals: Unremarkable. No mass. Kidneys and ureters: Nonobstructing calcification in the right kidney. Stomach and bowel: Postsurgical changes in the stomach. No obstruction. No mucosal thickening. PELVIS: Appendix: No findings to suggest acute appendicitis. Bladder: Unremarkable. Reproductive: Uterus is not seen. ABDOMEN and PELVIS: Intraperitoneal space: Unremarkable. No free air. No significant fluid collection. Bones/joints: No acute fracture. No dislocation. Soft tissues: Unremarkable. Vasculature: Unremarkable. No abdominal aortic aneurysm. Lymph nodes: Unremarkable. No enlarged lymph nodes. IMPRESSION: No acute finding in the abdomen/pelvis. Electronically signed by: Eliseo Chung MD 03/12/2022 12:38 AM CDT Due to temporary technical issues with the PACS/Fluency reporting system, reports are being signed by the in house radiologists without review as a courtesy to insure prompt reporting. The interpreting radiologist is fully responsible for the content of the report.
== END 2022-03-12 01:22 | disposition home or self-care (01) ==
LOC: ER 21:56
DX: R10.10 Upper abdominal pain, unspecified (principal); E87.6 Hypokalemia; Z72.0 Tobacco use; Z88.5 Allergy status to narcotic agent
CPT/HCPCS: 36415; 74177; 80053; 83690; 85025; 96361; 96372; 96374; 96375; 99284; J1170; J2175; J2550; J3010; J3480; J7030; Q9967

== ENCOUNTER 2022-03-18 22:48 | Emergency (ER) | payer SELFPAY ==
--- OUTSIDE RECORDS SUMMARY | 2022-03-18 22:51 | XMS REPORT | Clinical Summary ---
:1985 Author Organization [facility] MD [facility] Address [address] [place] [address] Care Team Providers Name Role Phone Keila Valentine MD Primary Care Provider Navi Arango MINE MANAGER Unavailable Allergies Active Allergy Reactions Severity Noted [...] melan nu of skin (Primary Dx) after 03/18/2021 Immunizations Name Administration Dates Next Due Influenza [...] epi gastric; Surgeon: Nicolasa Valentine MD; Location: [facility] OR; Service: SURG ON C [...] Visit Dermatology Lisbeth Shannon M D [address] [place], [place] [address] (Wo rk) Health Maintenance Due Date Last Done Comments COVID-19 Vaccination (#1) 01/11/1987 Results Not on fileafter 03/18/2021 Advance Directives Code Status Date Activated Date Inactivated Comments Full Code 10/04/2018 8:21 PM 10/08/2018 5:55 PM Full Code 09/23/2018 1:48 PM 09/23/2018 6:55 PM 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
--- OUTSIDE RECORDS SUMMARY | 2022-03-18 23:05 | XMS REPORT | Continuity of Care Document ---
:1985 Author Organization [facility] t Address [address] [place] [address] Care Team Providers Name Role Phone Keila Valentine MD Primary Care Physician Josué Arango Attending Clinician Unavailable TRICE HARRIS Attending Clinician Unavailable Trice Strickland Attending Clinician Ameena Dupree Attending Clinician AMEENA PRESTON Attending Clinician Unavailable Praveen Blas MD Attending Clinician EKTA BERMUDEZ Attending Clinician Unavailable Olga Clements Attending Clinician Unavailable SETH DYKES Attending Clinician Unavailable REHAN COTTON Attending Clinician Unavailable Viktoriya Wright RN Attending Clinician JUAN MENSAH Attending Clinician Unavailable CHIDIMR CHEUNG Attending Clinician Unavailable Tangela Perez Attending Clinician [...] Number Effective Date Expiration Date Abhinav durbin [id number] 00:00:00 [id number] 1958 00:00:00 PHCS GENERIC [id number] 2018 00:00:00 Problems Condition Condition Condition Status [...] Formattin ity of 00:00: g of this [place] 00 note is MD jim Springer from the n original. Cancer [facility] Readings from Last 2 Encounter s: 09/08/18 36.82 kg/m2 Hypothyroi Hypothyroi Disease Active U nivers dism dism 3-11 ity of 00:00: [place] 00 MD [facility] Malignant Malignant Disease Active Uni vers melanoma melanoma 3-06 ity of of other of other 00:00: [place] part of part of 00 trunk trunk [...] (LUF/LI V/SA) Anxiety Anxiety Problem Active [facility] (LUF/LI V/SA) No known No known Disease Unive rs active active ity of problems problems [facility] Allergies, Adverse Reactions, Alerts Allergy Allergy Status Severity Reaction(s) Onset Inactive Treating Comm ents Source Name Type Date Date Clinician ketor[place] DA Active U rash [facility]- [place] 00:00: d 00 [facility] KETOROLA DRUG Active Low Rash 2020-07 Univers C INGREDI 08-22 ity of 00:00: [place] 00 [facility] Ketorola Propensi Active Rash 2020-07 Univer s c ty to 08-22 ity of adverse 00:00: [place] reaction 00 [facility] [place] DA Active [place] [facility] 9[facility]10 [facility] l [facility] ketorola DA Active U [facility] c 9-24 [place] 00:00: d 00 [facility] ketorola DA Active U rash [facility] 9- [place] 00:00: d 00 [facility] [place] Drug Active Itching Univers c Allergy 07-19 ity of 00:00: [place] 00 MD Gian payton [facility] Toradol Adverse Active Info Not Common Reaction Available Spiri t - [facility] Family History Family Member Diagnosis Comments Start Date Stop Date Source Natural mother -Breast cancer [facility] [place] [facility] Social History Social Habit Start Date Stop Date Quantity Comments Source Exposure to 2022-02-09 2022-02-19 Not sure University SARS-CoV-2 (event) 00:00:00 09:20:00 [facility] Alcohol intake 2018-10-04 2018-10-04 Current University of 00:00:00 00:00:00 non-drinker of [place] MD [facility] (finding) Cigarette 2018-09-04 2018-09-04 University of pack-years 00:00:00 00:00:00 [place] MD [facility] Tobacco use and 2018-09-04 2018-09-04 Smokeless Universit y of exposure 00:00:00 00:00:00 tobacco non-user [place] [facility] Cigarettes smoked 2018-09-04 2018-09-04 Univers ity of current (pack per 00:00:00 00:00:00 Jeffrey Neely ) - Reported Cancer Ce nter History of tobacco 2004-07-01 2017-05-11 Smoker Univer sity of use 00:00:00 00:00:00 Jeffrey Bah [facility] Sex [facility]igned At [birth year] [facility] Smoking Status Start Date Stop Date Source Tobacco [facility] consumption unknown Never smoked tobacco [facility] Ex-smoker 2018-09-04 00:00:00 2018-09-04 [place] o f Jeffrey BARNARD 00:00:[address] [facility] Medications Ordered Filled Start Stop Current Ordering Indication Dosage Frequency Signature Comments Components Source Medication Medication Date Date Medication? Clinician (SIG) Name Name metoclopram 2021- No 10mg 10 mg, Uni vers oleg HCl 02-19 Slow IV ity of (REGLAN) 15:30: 15:37 Push, [place] injection 00 :00 ONCE, 1 Medical 10 mg dose, On Branch [facility] 02/19/22 at 1030, JOSE NaCl 0.9% 2021- No 1000mL at 999 Uni vers (NS) bolus 02-19 mL/hr, ity of infusion 15:30: 15:58 1,000 mL, Jacques as 1,000 mL 00 :00 IV Medical Infusion, Branch ONCE, 1 dose, On [facility] 02/19/22 at 1030, JOSE morpHINE (4 2021- No 4mg 4 mg, Slow Univers mg/mL) 02-19 IV Push, ity of injection 4 14:45: 15:05 [place]CE[place] 1 [place] mg 00 :[place] dose, On Medical [facility] Branch 02/19/22 at 0945, STAT ondansetron 2021- No 4mg 4 mg, Slow Univers (ZOFRAN 02-19 IV Push, ity of (PF)) 14:30: 15:05 ONCE, 1 [place] injection 4 00 :00 dose, On Medi felipa mg [facility] Branch 02/19/22 at 0930, JOSE methylPREDN 2021- Yes [id number] [facility] (MEDROL, 00:00: SEE-INSTRU Jacques as TE,) 4 mg 00 CTIONS. Medica l tablets follow Branch package directions methylPREDN Yes [id number] Take by Univers ISolone 11-29 mouth ity of (MEDROL, 00:00: SEE-INSTRU Jacques as TE,) 4 mg 00 CTIONS. Medica l tablets follow Branch package directions amoxicillin 2021- No [id number] 1{tbl} Take 1 Univers -clavulanat 11-29 tablet [...] s: acute pain estrogens, Yes Take by [facility] ers conjugated 3-01 mouth. ity of (PREMARIN 16:19: [place] ORAL) 44 Medical Branch estrogens, Yes Take by [facility] ers conjugated 3-01 mouth. ity of (PREMARIN 16:19: [place] ORAL) 44 Medical Branch naproxen Yes [id number] 500mg Take 1 U nivers (NAPROSYN) 2-02 tablet by ity of 500 mg 00:00: mouth 2 [place] tablet 00 (two) Medical times Branch daily with meals. naproxen Yes [id number] 500mg Take 1 U nivers (NAPROSYN) 2-02 tablet by ity of 500 mg 00:00: mouth 2 [place] tablet 00 (two) Medical times Branch daily with meals. albuterol 2020-07 Yes [id number] 2{puff} Inhale 2 Univers 90 2-22 Puffs [...] Cough. Indication s: cough albuterol 2020-07 Yes [id number] 2{puff} Inhale 2 Univers 90 2-22 Puffs [...] for pain) V/SA) Premarin Premarin 2018-07 Yes [place] 1 tablet Common 0-23 [facility] 00:00: - [facility] estrogens, 2018-07 Yes Take by Univ ers conjugated 0-23 mouth ity of (PREMARIN 00:00: daily. [place] ORAL) 00 [facility] estrogens, 2018-07 Yes Take by Univ ers conjugated 0-23 mouth ity of (PREMARIN 00:00: daily. [place] ORAL) 00 MD Gian payton [facility] estrogens, 2018-07 Yes Take by Univ ers conjugated 0-23 mouth ity of (PREMARIN 00:00: daily. [place] ORAL) 00 MD Gian payton [facility] estrogens, 2018-07 Yes Take by [facility] ers conjugated 0-23 mouth ity of (PREMARIN 00:00: daily. [place] ORAL) MD Gian payton [facility] estrogens, 2018-07 Yes Take by [facility] ers conjugated 0-23 mouth ity of (PREMARIN 00:00: daily. [place] ORAL) 00 [facility] Estradiol Estradiol 2018-07 Yes Kaywin 1 tablet Common 0- [facility] 00:00: - [facility] citalopram Yes Univers (CeleXA) 40 9-10 ity of mg tablet 00:00: [place] [facility] citalopram Yes Univers (CeleXA) 40 9-10 ity of mg tablet 00:00: [place] MD Gian payton [facility] citalopram Yes Univers (CeleXA) 40 9-10 ity of mg tablet 00:00: MD Springer [facility] citalopram Yes Univers (CeleXA) 40 9-10 ity of mg tablet 00:00: [place] MD Gian payton [facility] citalopram 0 Yes Univers (CeleXA) 40 9-10 ity of mg tablet 00:00: MD Gian payton [facility] levothyroxi 2010-0 Yes Univer s ne 175 mcg 8-10 ity of cap 00:00: MD Gian payton [facility] levothyroxi 2010-0 Yes Univer s ne 175 mcg 8-10 ity of cap 00:00: MD Gian payton [facility] levothyroxi 0 Yes Univer s ne 175 mcg 8-10 ity of cap 00:00: MD Gian payton [facility] levothyroxi 2010-0 Yes Univer s ne 175 mcg 8-10 ity of cap 00:00: MD Gian payton [facility] levothyroxi 0 Yes Univer s ne 175 mcg 8-10 ity of cap 00:00: MD Gian payton [facility] zolpidem 2007-0 Yes Univers (AMBIEN) 10 1-01 ity of mg tablet 00:00: [facility] zolpidem Yes Univers (AMBIEN) 10 07-01 ity of mg tablet 00:00: [place] MD [facility] zolpidem Yes Univers (AMBIEN) 10 07-01 ity of mg tablet 00:00: MD Gian payton [facility] zolpidem Yes Univers (AMBIEN) 10 07-01 ity of mg tablet 00:00: MD Gian payton [facility] zolpidem Yes Univers (AMBIEN) 10 07-01 ity of mg tablet 00:00: [place] [facility] acetaminoph acetaminoph Yes 1 Q5.00H [facility] [...] C HI St conjugated conjugated Gutierrez es (INTERMEDIATE) 1.25 (INTERMEDIATE) 1.25 Mem oria MG Oral MG Oral [...] [facility] conjugated conjugated daily Olamide kes (INTERMEDIATE) 1.25 (INTERMEDIATE) 1.25 Mem oria MG Oral MG Oral l Tablet Tablet (LUF/LI V/SA) levothyroxi levothyroxi Yes 150ug 1xD orally [facility] (LUF/LI V/SA) Celexa Celexa Yes Kaywin 1 tablet Commo n Aiden [facility] Levothyroxi Levothyroxi Yes Kaywin 1 tablet Common ne Sodium ne Sodium Aiden on an Sp karla empty - [facility] stomach in [facility] Estradiol Estradiol Yes Kaywin 1 patch to Common Aiden skin [facility] Immunizations Ordered Filled Immunization Date Status Comments [facility] e Immunization Name Name influenza, high influenza, high 2015-04-[address] [facility] dose seasonal, dose seasonal, 00:00:00 Memori al preservative-free preservative-free (LUF/DAVID/SA) Influenza, 2011-03-30 Completed University of Unspecified 00:00:00 [place] MD [facility] Tdap 2011-03-30 Completed University of 00:00:00 [place] MD Olvin banuelos [facility] Influenza, 2011-03-30 Completed University of Unspecified 00:00:00 [place] [facility] Tdap 2011-03-30 Completed University of 00:00:00 [place] MD Olvin banuelos [facility] Influenza, 2011-03-30 Completed University of Unspecified 00:00:00 [place] MD Hamilton stefano [facility] Tdap 2011-03-30 Completed University of 00:00:00 [place] MD Bah [facility] Influenza, 2011-03-30 Completed University of Unspecified 00:00:00 [place] MD [facility] Tdap 2011-03-30 Completed University of 00:00:00 [place] MD Olvin banuelos [facility] Influenza, 2011-03-30 Completed University of Unspecified 00:00:00 [facility] Tdap 2011-03-30 Completed University of 00:00:00 [facility] Influenza (IM) 2009-04-05 Completed University of Preservative Free 00:00:00 [facility] Influenza (IM) 2009-04-05 Completed University of Preservative Free 00:00:00 [facility] Influenza (IM) 2009-04-05 Completed University of Preservative Free 00:00:00 [facility] Influenza (IM) 2009-04-05 Completed University of Preservative Free 00:00:00 [facility] Influenza (IM) 2009-04-05 Completed University of Preservative Free 00:00:00 [facility] Vital Signs Vital Name Observation Time Observation Value Comments Source Systolic blood 2022-02-19 14:13:00 156 mm[Hg] Univer sity of pressure [facility] Diastolic blood 2022-02-19 14:13:00 94 mm[Hg] Unive rsity of [facility] Heart rate 2022-02-19 14:13:00 111 /min [facility] Body temperature 2022-02-19 14:13:00 37.11 Ericka [facility] Respiratory rate 2022-02-19 14:13:00 22 /min [facility] Body height 2022-02-19 14:13:00 162.6 cm [facility] Body weight 2022-02-19 14:13:00 104.327 kg [facility] BMI 2022-02-19 14:13:00 39.48 kg/m2 [facility] Oxygen saturation in 2022-02-19 14:13:00 99 /min [facility] Arterial blood by [facility] Pulse oximetry Branch Systolic blood 2021-11-29 22:40:00 116 mm[Hg] Univer sity of pressure [facility] Diastolic blood 2021-11-29 22:40:00 85 mm[Hg] Unive rsity of pressure [facility] Heart rate 2021-11-29 22:40:00 87 /min Universi [facility] Body temperature 2021-11-29 22:40:[address] [facility] Respiratory rate 2021-11-29 22:40:00 16 /min [facility] Body height 2021-11-29 22:40:00 162.6 cm Universi [facility] Body weight 2021-11-29 22:40:00 103.874 kg [facility] BMI 2021-11-29 22:40:00 39.31 kg/m2 [facility] Oxygen saturation in 2021-11-29 22:40:00 98 /min [facility] Arterial blood by [facility] Pulse oximetry Branch Height 2021-04-23 00:58:00 162.56 [...] Center Heart rate 2021-10-26 15:16:33 92 /min [facility] Respiratory rate 2021-10-26 15:16:33 16 /min [facility] Oxygen saturation in 2021-10-26 15:16:33 98 /min [facility] Arterial blood by Jeffrey muñoz Pulse oximetry [facility] Body Temperature 2021-04-23 00:58:00 97.8 [degF] [facility] (LUF/DAVID/SA) Pulse Rate 2021-04-23 00:58:00 116 /min [facility] (LUF/DAVID/SA) Respiratory Rate 2021-04-23 00:58:00 18 /min [facility] (F/DAVID/SA) O2% BldC Oximetry 2021-04-23 00:58:00 99 % [facility] (LUF/DAVID/SA) BP Systolic 2021-04-23 00:58:00 111 mm[Hg] [facility] (LUF/DAVID/SA) BP Diastolic 2021-04-23 00:58:00 77 mm[Hg] [facility] (LUF/DAVID/SA) Height 2021-04-23 00:58:00 64 [in_i] [facility] (F/DAVID/SA) Weight 2021-04-23 00:58:00 105.1 kg [facility] (LUF/DAVID/SA) BMI (Body Mass 2021-04-23 00:58:00 40 kg/m2 [facility] (F/DAVID/SA) Body Temperature 2021-03-24 10:53:00 98.6 [degF] [facility] (LUF/DAVID/SA) Pulse Rate 2021-03-24 10:53:00 87 /min [facility] (F/DAVID/SA) Respiratory Rate 2021-03-24 10:53:00 18 /min [facility] (LUF/DAVID/SA) O2% BldC Oximetry 2021-03-24 10:53:00 97 % [facility] (LUF/DAVID/SA) BP Systolic 2021-03-24 10:53:00 120 mm[Hg] [facility] (LUF/DAVID/SA) BP Diastolic 2021-03-24 10:53:00 86 mm[Hg] [facility] (LUF/DAVID/SA) Height 2021-03-24 10:53:00 64 [in_i] [facility] (LUF/DAVID/SA) Weight 2021-03-24 10:53:00 105 kg [facility] (LUF/DAVID/SA) BMI (Body Mass 2021-03-24 10:53:00 40 kg/m2 [facility]) [facility] (LUF/DAVID/SA) Body Temperature 2021-03-10 10:55:00 98.4 [degF] [facility] (LUF/DAVID/SA) Pulse Rate 2021-03-10 10:55:00 85 /min [facility] (LUF/DAVID/SA) Respiratory Rate 2021-03-10 10:55:00 20 /min [facility] (LUF/DAVID/SA) O2% BldC Oximetry 2021-03-10 10:55:00 100 % [facility] (LUF/DAVID/SA) BP Systolic 2021-03-10 10:55:00 140 mm[Hg] [facility] (LUF/DAVID/SA) BP Diastolic 2021-03-10 10:55:00 98 mm[Hg] [facility] (LUF/DAVID/SA) Height 2021-03-10 10:55:00 64 [in_i] [facility] (LUF/DAVID/SA) Weight 2021-03-10 10:55:00 105.2 kg [facility] (LUF/DAVID/SA) BMI (Body Mass 2021-03-10 10:55:00 40 kg/m2 [facility] Index) [facility] (LUF/DAVID/SA) Pulse Rate 2021-02-23 12:32:00 67 /min [facility] (LUF/DAVID/SA) O2% BldC Oximetry 2021-02-23 12:32:00 98 % [facility] (LUF/DAVID/SA) BP Systolic 2021-02-23 12:32:00 112 mm[Hg] [facility] (LUF/DAVID/SA) BP Diastolic 2021-02-23 12:32:00 70 mm[Hg] [facility] (LUF/DAVID/SA) Heart Rate 2021-02-23 11:16:00 64 /min [facility] (LUF/DAVID/SA) Respiratory Rate 2021-02-23 11:16:00 14 /min [facility] (LUF/DAVID/SA) Body Temperature 2021-02-23 08:24:00 98.1 [degF] [facility] (F/DAVID/SA) Height 2021-02-23 08:24:00 64 [in_i] [facility] (F/DAVID/SA) Weight 2021-02-23 08:24:00 110 kg [facility] (F/DAVID/SA) BMI (Body Mass 2021-02-23 08:24:00 41.9 kg/m2 [facility] (LUF/DAVID/SA) Heart Rate 2021-01-10 01:46:00 93 /min [facility] (F/DAVID/SA) Pulse Rate 2021-01-10 01:46:00 95 /min [facility] (LUF/DAVID/SA) Respiratory Rate 2021-01-10 01:46:00 16 /min [facility] (F/DAVID/SA) O2% BldC Oximetry 2021-01-10 01:46:00 97 % [facility] (F/DAVID/SA) BP Systolic 2021-01-10 01:46:00 103 mm[Hg] [facility] (LUF/DAVID/SA) BP Diastolic 2021-01-10 01:46:00 71 mm[Hg] [facility] (F/DAVID/SA) Weight 2021-01-10 00:53:00 102 kg [facility] (LUF/DAVID/SA) Body Temperature 2021-01-10 00:47:00 98.6 [degF] [facility] (LUF/DAVID/SA) Pulse Rate 2020-12-12 14:20:00 87 /min [facility] (LUF/DAVID/SA) O2% BldC Oximetry 2020-12-12 14:20:00 98 % [facility] (LUF/DAVID/SA) BP Systolic 2020-12-12 14:20:00 128 mm[Hg] [facility] (LUF/DAVID/SA) BP Diastolic 2020-12-12 14:20:00 86 mm[Hg] [facility] (LUF/DAVID/SA) Body Temperature 2020-12-12 12:39:00 98.9 [degF] [facility] (LUF/DAVID/SA) Respiratory Rate 2020-12-12 12:39:00 20 /min [facility] (LUF/DAVID/SA) Weight 2020-12-12 12:39:00 102 kg [facility] (LUF/DAVID/SA) Body Temperature 2020-12-08 10:27:00 98.6 [degF] [facility] (LUF/DAVID/SA) Pulse Rate 2020-12-08 10:27:00 79 /min [facility] (LUF/DAVID/SA) Respiratory Rate 2020-12-08 10:27:00 16 /min [facility] (LUF/DAVID/SA) O2% BldC Oximetry 2020-12-08 10:27:00 99 % [facility] (LUF/DAVID/SA) BP Systolic 2020-12-08 10:27:00 111 mm[Hg] [facility] (LUF/DAVID/SA) BP Diastolic 2020-12-08 10:27:00 57 mm[Hg] [facility] (LUF/DAVID/SA) Weight 2020-12-08 10:27:00 103 kg [facility] (LUF/DAVID/SA) Body Temperature 2020-11-25 00:27:00 97.9 [degF] [facility] (LUF/DAVID/SA) Pulse Rate 2020-11-25 00:27:00 82 /min [facility] (LUF/DAVID/SA) Respiratory Rate 2020-11-25 00:27:00 17 /min [facility] (LUF/DAVID/SA) O2% BldC Oximetry 2020-11-25 00:27:00 98 % [facility] (LUF/DAVID/SA) BP Systolic 2020-11-25 00:27:00 109 mm[Hg] [facility] (LUF/DAVID/SA) BP Diastolic 2020-11-25 00:27:00 62 mm[Hg] [facility] (LUF/DAVID/SA) Heart Rate 2020-11-21 09:30:00 75 /min [facility] (LUF/DAVID/SA) Respiratory Rate 2020-11-21 09:30:00 14 /min [facility] (LUF/DAVID/SA) BP Systolic 2020-11-21 09:30:00 120 mm[Hg] [facility] (LUF/DAVID/SA) BP Diastolic 2020-11-21 09:30:00 76 mm[Hg] [facility] (LUF/DAVID/SA) Body Temperature 2020-11-21 07:15:00 98.1 [degF] [facility] (F/DAVID/SA) Pulse Rate 2020-11-21 07:15:00 103 /min [facility] (F/DAVID/SA) O2% BldC Oximetry 2020-11-21 07:15:00 100 % [facility] (F/DAVID/SA) Height 2020-11-21 07:15:00 64 [in_i] [facility] (F/DAVID/SA) Weight 2020-11-21 07:15:00 103.1 kg [facility] (F/DAVID/SA) BMI (Body Mass 2020-11-21 07:15:00 39.2 kg/m2 [facility] (LUF/DAVID/SA) Heart Rate 2020-11-14 13:30:00 69 /min [facility] (LUF/DAVID/SA) Pulse Rate 2020-11-14 13:30:00 70 /min [facility] (LUF/DAVID/SA) Respiratory Rate 2020-11-14 13:30:00 10 /min [facility] (LUF/DAVID/SA) O2% BldC Oximetry 2020-11-14 13:30:00 96 % [facility] (LUF/DAVDI/SA) BP Systolic 2020-11-14 13:30:00 103 mm[Hg] [facility] (LUF/DAVID/SA) BP Diastolic 2020-11-14 13:30:00 77 mm[Hg] [facility] (LUF/DAVID/SA) Body Temperature 2020-11-14 09:47:00 97.4 [degF] [facility] (F/DAVID/SA) Weight 2020-11-14 09:47:00 103 kg [facility] (F/DAVID/SA) Body Temperature 2020-11-08 08:32:00 98.1 [degF] [facility] (LUF/DAVID/SA) Pulse Rate 2020-11-08 08:32:00 82 /min [facility] (LUF/DAVID/SA) Respiratory Rate 2020-11-08 08:32:00 20 /min [facility] (LUF/DAVID/SA) O2% BldC Oximetry 2020-11-08 08:32:00 100 % [facility] (F/DAVID/SA) BP Systolic 2020-11-08 08:32:00 129 mm[Hg] [facility] (LUF/DAVID/SA) BP Diastolic 2020-11-08 08:32:00 72 mm[Hg] [facility] (F/DAVID/SA) Height 2020-11-08 08:32:00 64 [in_i] [facility] (F/DAVID/SA) Weight 2020-11-08 08:32:00 103.1 kg [facility] (F/DAVID/SA) BMI (Body Mass 2020-11-08 08:32:00 39.2 kg/m2 [facility]) [facility] (LUF/DAVID/SA) Body Temperature 2020-11-01 00:58:00 98.7 [degF] [facility] (LUF/DAVID/SA) Pulse Rate 2020-11-01 00:58:00 104 /min [facility] (LUF/DAVID/SA) Respiratory Rate 2020-11-01 00:58:00 20 /min [facility] (LUF/DAVID/SA) O2% BldC Oximetry 2020-11-01 00:58:00 99 % [facility] (LUF/DAVID/SA) BP Systolic 2020-11-01 00:58:00 133 mm[Hg] [facility] (LUF/DAVID/SA) BP Diastolic 2020-11-01 00:58:00 101 mm[Hg] [facility] (LUF/DAVID/SA) Height 2020-11-01 00:53:00 65 [in_i] [facility] (LUF/DAVID/SA) Weight 2020-11-01 00:53:00 103 kg [facility] (LUF/DAVID/SA) BMI (Body Mass 2020-11-01 00:53:00 37.8 kg/m2 [facility] (LUF/DAVID/SA) Body Temperature 2020-10-04 23:51:00 98 [degF] [facility] (LUF/DAVID/SA) Pulse Rate 2020-10-04 23:51:00 96 /min [facility] (LUF/DAVID/SA) Respiratory Rate 2020-10-04 23:51:00 20 /min [facility] (LUF/DAVID/SA) O2% BldC Oximetry 2020-10-04 23:51:00 98 % [facility] (LUF/DAVID/SA) BP Systolic 2020-10-04 23:51:00 125 mm[Hg] [facility] (LUF/DAVID/SA) BP Diastolic 2020-10-04 23:51:00 73 mm[Hg] [facility] (LUF/DAVID/SA) Height 2020-10-04 23:47:00 65 [in_i] [facility] (LUF/DAVID/SA) Weight 2020-10-04 23:47:00 102.6 kg [facility] (LUF/DAVID/SA) BMI (Body Mass 2020-10-04 23:47:00 37.6 kg/m2 [facility] Index) [facility] (LUF/DAVID/SA) Body Temperature 2020-09-18 01:44:00 98.3 [degF] [facility] (LUF/DAVID/SA) Pulse Rate 2020-09-18 01:44:00 116 /min [facility] (LUF/DAVID/SA) Respiratory Rate 2020-09-18 01:44:00 20 /min [facility] (F/DAVID/SA) O2% BldC Oximetry 2020-09-18 01:44:00 99 % [facility] (F/DAVID/SA) BP Systolic 2020-09-18 01:44:00 127 mm[Hg] [facility] (LUF/DAVID/SA) BP Diastolic 2020-09-18 01:44:00 83 mm[Hg] [facility] (LUF/DAVID/SA) Height 2020-09-18 01:40:00 64 [in_i] [facility] (F/DAVID/SA) Weight 2020-09-18 01:40:00 102.8 kg [facility] (LUF[facility]/SA) BMI (Body Mass 2020-09-18 01:40:00 39.1 kg/m2 [facility] Index) [facility] (LUF/DAVID/SA) Pulse Rate 2020-09-12 02:16:00 88 /min [facility] (F/DAVID/SA) O2% BldC Oximetry 2020-09-12 02:16:00 98 % [facility] (F/DAVID/SA) BP Systolic 2020-09-12 02:16:00 113 mm[Hg] [facility] (LUF/[facility]VID/SA) BP Diastolic 2020-09-12 02:16:00 64 mm[Hg] [facility] (F/DAVID/SA) Body Temperature 2020-09-12 00:56:00 97.9 [degF] [facility] (LUF/DAVID/SA) Respiratory Rate 2020-09-12 00:56:00 18 /min [facility] (LUF/DAVID/SA) Height 2020-09-12 00:50:00 65 [in_i] [facility] ([facility]F/[facility]VID/SA) Weight 2020-09-12 00:50:00 104.5 kg [facility] (LUF/DAVID/SA) BMI (Body Mass 2020-09-12 00:50:00 38.3 kg/m2 [facility]) [facility] (LUF/DAVID/SA) Pulse Rate 2020-08-22 03:16:00 100 /min [facility] (LUF/[facility]VID/SA) O2% BldC Oximetry 2020-08-22 03:16:00 95 % [facility] (LUF/DAVID/SA) BP Systolic 2020-08-22 03:16:00 129 mm[Hg] [facility] ([facility]F/[facility]ID/SA) BP Diastolic 2020-08-22 03:16:00 88 mm[Hg] [facility] (LUF/[facility]VID/SA) Body Temperature 2020-08-22 01:35:00 98.4 [degF] [facility] (LUF/DAVID/SA) Respiratory Rate 2020-08-22 01:35:00 20 /min [facility] (F/DAVID/SA) Height 2020-08-22 01:35:00 64 [in_i] [facility] (LUF/DAVID/SA) Weight 2020-08-22 01:35:00 102 kg [facility] (LUF/DAVID/SA) BMI (Body Mass 2020-08-22 01:35:00 38.8 kg/m2 [facility]) [facility] (LUF/DAVID/SA) Pulse Rate 2020-08-06 03:31:00 83 /min [facility] (LUF/[facility]VID/SA) O2% BldC Oximetry 2020-08-06 03:31:00 96 % [facility] (LUF/DAVID/SA) BP Systolic 2020-08-06 03:31:00 127 mm[Hg] [facility] ([facility]F/[facility]ID/SA) BP Diastolic 2020-08-06 03:31:00 82 mm[Hg] [facility] (LUF/[facility]ID/SA) Body Temperature 2020-08-06 01:45:00 98 [degF] [facility] (LUF/DAVID/SA) Respiratory Rate 2020-08-06 01:45:00 20 /min [facility] (LUF/DAVID/SA) Height 2020-08-06 01:39:00 66 [in_i] [facility] (F/DAVID/SA) Weight 2020-08-06 01:39:00 104.2 kg [facility] (LUF/DAVID/SA) BMI (Body Mass 2020-08-06 01:39:00 37.3 kg/m2 [facility] (LUF/DAVID/SA) Pulse Rate 2020-07-19 11:16:00 67 /min [facility] (LUF/[facility]VID/SA) O2% BldC Oximetry 2020-07-19 11:16:00 94 % [facility] (F/DAVID/SA) BP Systolic 2020-07-19 11:16:00 101 mm[Hg] [facility] ([facility]F/[facility]/SA) BP Diastolic 2020-07-19 11:16:00 63 mm[Hg] [facility] (LUF/[facility]ID/SA) Body Temperature 2020-07-19 07:50:00 98 [degF] [facility] (LUF/DAVID/SA) Respiratory Rate 2020-07-19 07:50:00 18 /min [facility] (F/DAVID/SA) Weight 2020-07-19 07:50:00 100 kg [facility] (F/DAVID/SA) Heart Rate 2020-07-05 04:46:00 80 /min [facility] (LUF/DAVID/SA) Respiratory Rate 2020-07-05 04:46:00 15 /min [facility] (LUF/DAVID/SA) BP Systolic 2020-07-05 04:46:00 134 mm[Hg] [facility] ([facility]F/[facility]ID/SA) BP Diastolic 2020-07-05 04:46:00 60 mm[Hg] [facility] (LUF/[facility]ID/SA) Body Temperature 2020-07-05 02:57:00 98 [degF] [facility] (LUF/DAVID/SA) Pulse Rate 2020-07-05 02:57:00 82 /min [facility] (LUF/[facility]ID/SA) O2% BldC Oximetry 2020-07-05 02:57:00 99 % [facility] (LUF/DAVID/SA) Height 2020-07-05 02:50:00 65 [in_i] [facility] ([facility]F/[facility]ID/SA) Weight 2020-07-05 02:50:00 102.1 kg [facility] (LUF/[facility]ID/SA) BMI (Body Mass 2020-07-05 02:50:00 37.5 kg/m2 [facility] (LUF/DAVID/SA) Body Temperature 2020-06-07 13:38:00 98.5 [degF] [facility] (LUF/DAVID/SA) Pulse Rate 2020-06-07 13:38:00 95 /min [facility] (LUF/[facility]ID/SA) Respiratory Rate 2020-06-07 13:38:00 20 /min [facility] (F/DAVID/SA) O2% BldC Oximetry 2020-06-07 13:38:00 97 % [facility] (LUF/DAVID/SA) BP Systolic 2020-06-07 13:38:00 129 mm[Hg] [facility] ([facility]/SA) BP Diastolic 2020-06-07 13:38:00 73 mm[Hg] [facility] ([facility]F/[facility]/SA) Height 2020-06-07 13:38:00 64 [in_i] [facility] ([facility]F/[facility]/SA) Weight 2020-06-07 13:38:00 99.79 kg [facility] (LUF/[facility]ID/SA) BMI (Body Mass 2020-06-07 13:38:00 38 kg/m2 [facility] Index) [facility] (LUF/DAVID/SA) Body Temperature 2020-05-31 09:45:00 99.6 [degF] [facility] (LUF/DAVID/SA) Pulse Rate 2020-05-31 09:45:00 86 /min [facility] ([facility]F/[facility]/SA) Respiratory Rate 2020-05-31 09:45:00 18 /min [facility] (LUF/DAVID/SA) O2% BldC Oximetry 2020-05-31 09:45:00 98 % [facility] (LUF/DAVID/SA) BP Systolic 2020-05-31 09:45:00 118 mm[Hg] [facility] ([facility]F/[facility]ID/SA) BP Diastolic 2020-05-31 09:45:00 78 mm[Hg] [facility] (LUF/[facility]ID/SA) Height 2020-05-31 09:45:00 64 [in_i] [facility] (LUF/[facility]ID/SA) Weight 2020-05-31 09:45:00 99.79 kg [facility] (LUF/[facility]VID/SA) BMI (Body Mass 2020-05-31 09:45:00 38 kg/m2 [facility]) [facility] (LUF/DAVID/SA) Heart Rate 2020-04-25 20:01:00 69 /min [facility] (LUF/[facility]ID/SA) Pulse Rate 2020-04-25 20:01:00 71 /min [facility] ([facility]F/[facility]ID/SA) Respiratory Rate 2020-04-25 20:01:00 18 /min [facility] (LUF/DAVID/SA) O2% BldC Oximetry 2020-04-25 20:01:00 100 % [facility] (LUF/DAVID/SA) BP Systolic 2020-04-25 20:01:00 126 mm[Hg] [facility] (LUF/[facility]ID/SA) BP Diastolic 2020-04-25 20:01:00 86 mm[Hg] [facility] (LUF/[facility]ID/SA) Body Temperature 2020-04-25 16:50:00 98.4 [degF] [facility] (LUF/DAVID/SA) Height 2020-04-25 16:50:00 64 [in_i] [facility] (LUF/[facility]ID/SA) Weight 2020-04-25 16:50:00 220 [lb_av] [facility] ([facility]F/[facility]/SA) BMI (Body Mass 2020-04-25 16:50:00 38 kg/m2 [facility] Index) [facility] (LUF/DAVID/SA) Heart Rate 2020-03-20 18:18:00 112 /min [facility] ([facility]F/[facility]/SA) Pulse Rate 2020-03-20 18:16:00 93 /min [facility] (LUF/[facility]ID/SA) O2% BldC Oximetry 2020-03-20 18:16:00 92 % [facility] (LUF/DAVID/SA) BP Systolic 2020-03-20 18:16:00 127 mm[Hg] [facility] (LUF/[facility]/SA) BP Diastolic 2020-03-20 18:16:00 85 mm[Hg] [facility] (LUF/[facility]ID/SA) Body Temperature 2020-03-20 17:17:00 99.2 [degF] [facility] (LUF/DAVID/SA) Respiratory Rate 2020-03-20 17:17:00 19 /min [facility] (LUF/DAVID/SA) Height 2020-03-20 17:17:00 64 [in_i] [facility] ([facility]F/[facility]/SA) Weight 2020-03-20 17:17:00 106.9 kg [facility] (LUF/[facility]VID/SA) BMI (Body Mass 2020-03-20 17:17:00 40.7 kg/m2 [facility]) [facility] (LUF/DAVID/SA) Respiratory Rate 2020-03-17 10:33:00 16 /min [facility] (LUF/DAVID/SA) Body Temperature 2020-03-17 07:54:00 97.9 [degF] [facility] (LUF/DAVID/SA) Pulse Rate 2020-03-17 07:54:00 83 /min [facility] ([facility]F/[facility]) O2% BldC Oximetry 2020-03-17 07:54:00 96 % [facility] (LUF/DAVID/SA) BP Systolic 2020-03-17 07:54:00 107 mm[Hg] [facility] ([facility]F/[facility]/SA) BP Diastolic 2020-03-17 07:54:00 75 mm[Hg] [facility] ([facility]F/[facility]/SA) Weight 2020-03-17 00:09:00 105.6 kg [facility] (LUF/[facility]/SA) Heart Rate 2020-03-13 15:46:00 81 /min [facility] (LUF/[facility]/SA) Height 2020-03-13 15:31:00 64 [in_i] [facility] ([facility]F/[facility]/SA) Body Temperature 2020-03-02 15:20:00 98.6 [degF] [facility] (LUF/DAVID/SA) Pulse Rate 2020-03-02 15:20:00 86 /min [facility] (LUF/[facility]/SA) Respiratory Rate 2020-03-02 15:20:00 18 /min [facility] (LUF/DAVID/SA) O2% BldC Oximetry 2020-03-02 15:20:00 99 % [facility] (LUF/DAVID/SA) BP Systolic 2020-03-02 15:20:00 131 mm[Hg] [facility] ([facility]F/[facility]/SA) BP Diastolic 2020-03-02 15:20:00 85 mm[Hg] [facility] ([facility]F/[facility]/SA) Height 2020-03-01 10:54:00 64 [in_i] [facility] (LUF/[facility]/SA) Weight 2020-03-01 10:54:00 102 kg [facility] (LUF/[facility]ID/SA) BMI (Body Mass 2020-03-01 10:54:00 38.8 kg/m2 [facility] (LUF/DAVID/SA) Respiratory Rate 2020-02-27 07:47:00 16 /min [facility] (LUF/DAVID/SA) Body Temperature 2020-02-27 07:32:00 98.2 [degF] [facility] (LUF/DAVID/SA) Pulse Rate 2020-02-27 07:32:00 94 /min [facility] (LUF/DAVID/SA) O2% BldC Oximetry 2020-02-27 07:32:00 95 % [facility] (LUF/DAVID/SA) BP Systolic 2020-02-27 07:32:00 111 mm[Hg] [facility] ([facility]F/[facility]/SA) BP Diastolic 2020-02-27 07:32:00 56 mm[Hg] [facility] (LUF/DAVID/SA) Weight 2020-02-26 02:09:00 99.6 kg [facility] (LUF/[facility]ID/SA) Height 2020-02-25 10:03:00 64 [in_i] [facility] (LUF/DAVID/SA) Body Temperature 2020-02-25 00:52:00 97.9 [degF] [facility] (LUF/DAVID/SA) Pulse Rate 2020-02-25 00:52:00 118 /min [facility] ([facility]F/[facility]/SA) Respiratory Rate 2020-02-25 00:52:00 18 /min [facility] (LUF/DAVID/SA) O2% BldC Oximetry 2020-02-25 00:52:00 97 % [facility] (LUF/DAVID/SA) BP Systolic 2020-02-25 00:52:00 133 mm[Hg] [facility] ([facility]F/[facility]/SA) BP Diastolic 2020-02-25 00:52:00 67 mm[Hg] [facility] ([facility]F/[facility]/SA) Height 2020-02-25 00:47:00 64 [in_i] [facility] ([facility]F/[facility]/SA) Weight 2020-02-25 00:47:00 103.4 kg [facility] (LUF/[facility]ID/SA) BMI (Body Mass 2020-02-25 00:47:00 39.3 kg/m2 [facility] (LUF/DAVID/SA) Body Temperature 2020-01-25 11:32:00 98.4 [degF] [facility] (LUF/DAVID/SA) Pulse Rate 2020-01-25 11:32:00 81 /min [facility] ([facility]F/[facility]/SA) Respiratory Rate 2020-01-25 11:32:00 14 /min [facility] (LUF/DAVID/SA) O2% BldC Oximetry 2020-01-25 11:32:00 98 % [facility] (LUF/DAVID/SA) BP Systolic 2020-01-25 11:32:00 139 mm[Hg] [facility] ([facility]F/[facility]/SA) BP Diastolic 2020-01-25 11:32:00 89 mm[Hg] [facility] ([facility]F/[facility]/SA) Height 2020-01-25 11:32:00 64 [in_i] [facility] ([facility]F/[facility]ID/SA) Weight 2020-01-25 11:32:00 100.5 kg [facility] (LUF/[facility]ID/SA) BMI (Body Mass 2020-01-25 11:32:00 38.2 kg/m2 [facility] (LUF/DAVID/SA) Heart Rate 2019-11-24 04:16:00 84 /min [facility] ([facility]F/[facility]/SA) Pulse Rate 2019-11-24 04:16:00 90 /min [facility] ([facility]F/[facility]/SA) Respiratory Rate 2019-11-24 04:16:00 26 /min [facility] (LUF/DAVID/SA) O2% BldC Oximetry 2019-11-24 04:16:00 98 % [facility] (LUF/DAVID/SA) BP Systolic 2019-11-24 04:16:00 106 mm[Hg] [facility] ([facility]F/[facility]/SA) BP Diastolic 2019-11-24 04:16:00 69 mm[Hg] [facility] ([facility]F/[facility]/SA) Body Temperature 2019-11-24 00:54:00 98.4 [degF] [facility] (LUF/DAVID/SA) Height 2019-11-24 00:49:00 65 [in_i] [facility] ([facility]/SA) Weight 2019-11-24 00:49:00 103 kg [facility] ([facility]F/[facility]/SA) BMI (Body Mass 2019-11-24 00:49:00 37.8 kg/m2 [facility] Index) [facility] (LUF/DAVID/SA) Heart Rate 2019-10-07 22:54:00 83 /min [facility] ([facility]F/[facility]/SA) Respiratory Rate 2019-10-07 22:54:00 14 /min [facility] (LUF/DAVID/SA) Pulse Rate 2019-10-07 22:31:00 89 /min [facility] ([facility]F/[facility]/SA) O2% BldC Oximetry 2019-10-07 22:31:00 97 % [facility] (LUF/DAVID/SA) BP Systolic 2019-10-07 21:16:00 127 mm[Hg] [facility] ([facility]F/[facility]/SA) BP Diastolic 2019-10-07 21:16:00 85 mm[Hg] [facility] ([facility]) Height 2019-10-07 20:41:00 64 [in_i] [facility] ([facility]F/[facility]/SA) Weight 2019-10-07 20:41:00 100.2 kg [facility] ([facility]F/[facility]/SA) BMI (Body Mass 2019-10-07 20:41:00 38.1 kg/m2 [facility] Index) [facility] (LUF/DAVID/SA) Pulse Rate 2019-09-20 04:16:00 96 /min [facility] ([facility]F/[facility]/SA) Respiratory Rate 2019-09-20 04:16:00 9 /min [facility] (F/DAVID/SA) O2% BldC Oximetry 2019-09-20 04:16:00 96 % [facility] (LUF/DAVID/SA) BP Systolic 2019-09-20 04:16:00 97 mm[Hg] [facility] ([facility]) BP Diastolic 2019-09-20 04:16:00 76 mm[Hg] [facility] ([facility]) Body Temperature 2019-09-20 00:44:00 98 [degF] [facility] (LUF/[facility]ID/SA) Height 2019-09-20 00:39:00 65 [in_i] [facility] ([facility]/SA) Weight 2019-09-20 00:39:00 101.9 kg [facility] ([facility]/SA) BMI (Body Mass 2019-09-20 00:39:00 37.4 kg/m2 [facility]) [facility] (LUF/DAVID/SA) Pulse Rate 2019-08-17 04:31:00 81 /min [facility] ([facility]F/[facility]/SA) Respiratory Rate 2019-08-17 04:31:00 13 /min [facility] (LUF/DAVID/SA) O2% BldC Oximetry 2019-08-17 04:31:00 97 % [facility] (LUF/DAVID/SA) BP Systolic 2019-08-17 04:31:00 136 mm[Hg] [facility] ([facility]) BP Diastolic 2019-08-17 04:31:00 75 mm[Hg] [facility] ([facility]) Body Temperature 2019-08-17 02:23:00 97.6 [degF] [facility] (LUF/[facility]ID/SA) Height 2019-08-17 02:19:00 64 [in_i] [facility] ([facility]) Weight 2019-08-17 02:19:00 100.6 kg [facility] ([facility]/SA) BMI (Body Mass 2019-08-17 02:19:00 38.3 kg/m2 [facility]) [facility] (LUF/DAVID/SA) Pulse Rate 2018-12-07 02:33:00 79 /min [facility] ([facility]) Respiratory Rate 2018-12-07 02:33:00 15 /min [facility] (LUF/[facility]VID/SA) O2% BldC Oximetry 2018-12-07 02:33:00 96 % [facility] (LUF/[facility]ID/SA) BP Systolic 2018-12-07 02:33:00 120 mm[Hg] [facility] ([facility]) BP Diastolic 2018-12-07 02:33:00 76 mm[Hg] [facility] ([facility]) Body Temperature 2018-12-07 01:10:00 98.2 F [facility] (LUF/DAVID/SA) Height 2018-12-07 01:10:00 64 in [facility] ([facility]F/[facility]ID/SA) Weight Measured 2018-12-07 01:10:00 218.25 lbs [facility] (LUF/DAVID/SA) BMI (Body Mass 2018-12-07 01:10:00 37.7 kg/m2 [facility]) [facility] (LUF/DAVID/SA) Pulse Rate 2018-09-30 19:40:00 70 /min [facility] ([facility]) Respiratory Rate 2018-09-30 19:40:00 21 /min [facility] (F/DAVID/SA) O2% BldC Oximetry 2018-09-30 19:40:00 100 % [facility] (F/DAVID/SA) BP Systolic 2018-09-30 19:40:00 124 mm[Hg] [facility] ([facility]) BP Diastolic 2018-09-30 19:40:00 88 mm[Hg] [facility] ([facility]) Body Temperature 2018-09-30 19:23:00 99.3 F [facility] (F/DAVID/SA) Height 2018-09-30 19:23:00 66 in [facility] (F/[facility]VID/SA) Weight Measured 2018-09-30 19:23:[address] [facility] (LUF/DAVID/SA) BMI (Body Mass 2018-09-30 19:23:00 34.5 kg/m2 [facility]) [facility] (LUF/DAVID/SA) Body Temperature 2018-09-01 13:59:00 98 F [facility] (F/DAVID/SA) Pulse Rate 2018-09-01 12:15:00 74 /min [facility] (F/[facility]) Respiratory Rate 2018-09-01 12:15:00 16 /min [facility] (LUF/[facility]VID/SA) O2% BldC Oximetry 2018-09-01 12:15:00 98 % [facility] (LUF/[facility]VID/SA) BP Systolic 2018-09-01 12:15:00 131 mm[Hg] [facility] ([facility]) BP Diastolic 2018-09-01 12:15:00 78 mm[Hg] [facility] ([facility]) Height 2018-09-01 09:16:00 64 in [facility] (F/[facility]VID/SA) Weight Measured 2018-09-01 09:16:00 214.24 lbs [facility] (LUF/DAVID/SA) BMI (Body Mass 2018-09-01 09:16:00 37 kg/m2 [facility]) [facility] (LUF/[facility]VID/SA) Body Temperature 2018-05-13 10:58:00 99 F [facility] (LUF/DAVID/SA) Pulse Rate 2018-05-13 10:58:00 97 /min [facility] ([facility]) Respiratory Rate 2018-05-13 10:58:00 18 /min [facility] (F/DAVID/SA) O2% BldC Oximetry 2018-05-13 10:58:00 98 % [facility] (LUF/DAVID/SA) BP Systolic 2018-05-13 10:58:00 131 mm[Hg] [facility] ([facility]) BP Diastolic 2018-05-13 10:58:00 88 mm[Hg] [facility] ([facility]) Height 2018-05-13 10:58:00 64 in [facility] (F/[facility]/SA) Weight Measured 2018-05-13 10:58:00 207.23 lbs [facility] (LUF/DAVID/SA) BMI (Body Mass 2018-05-13 10:58:00 35.8 [facility]) [facility] (LUF/DAVID/SA) Body Temperature 2017-12-24 08:04:00 98.7 F [facility] (LUF/DAVID/SA) Respiratory Rate 2017-12-24 08:04:00 18 /min [facility] (LUF/[facility]ID/SA) O2% BldC Oximetry 2017-12-24 08:04:00 98 % [facility] (LUF/[facility]ID/SA) BP Systolic 2017-12-24 08:04:00 126 mm[Hg] [facility] ([facility]) BP Diastolic 2017-12-24 08:04:00 86 mm[Hg] [facility] ([facility]) Weight Measured 2017-12-24 08:04:00 207.23 lbs [facility] (LUF/DAVID/SA) Body Temperature 2017-06-20 23:28:00 97.4 F [facility] (LUF/DAVID/SA) Respiratory Rate 2017-06-20 23:28:00 20 /min [facility] (LUF/DAVID/SA) O2% BldC Oximetry 2017-06-20 23:28:00 99 % [facility] (LUF/[facility]ID/SA) BP Systolic 2017-06-20 23:28:00 107 mm[Hg] [facility] ([facility]) BP Diastolic 2017-06-20 23:28:00 76 mm[Hg] [facility] ([facility]) Height 2017-06-20 23:28:00 64 in [facility] ([facility]F/[facility]) Weight Measured 2017-06-20 23:28:[address] 217[address] [facility] (LUF/DAVID/SA) BMI (Body Mass 2017-06-20 23:28:00 37.5 [facility] (LUF/DAVID/SA) Procedures Procedure Date / Time Performing Clinician Source Performed CT ABDOMEN PELVIS WO 2022-02-19 15:49:34 Trice Harris [facility] LIPASE 2022-02-19 14:26:00 Trice Harris [facility] COMP. METABOLIC PANEL 2022-02-19 14:26:00 Trice Harris [facility] ([id number]) [facility] CBC WITH DIFF 2022-02-19 14:26:00 Trice Harris [facility] URINALYSIS 2022-02-19 14:26:00 Trice Harris [facility] CONSENT/REFUSAL FOR 2022-02-19 14:11:01 Doctor Unassigned, [facility] DIAGNOSIS AND TREATMENT [facility] POCT MOLECULAR FLU 2021-11-29 22:46:00 [facility] INFUS DEV LT BASILIC 2020-03-15 00:00:00 [facility] VN PERQ [facility] (LUF/DAVID/SA) ULTRASONOGRAPHY LT UP EXT 2020-03-15 00:00:00 CH [facility] VNS GUID [facility] (LUF/DAVID/SA) ROBOTIC LAP LYSIS OF 2020-03-02 12:56:00 [facility] ADHESIONS [facility] (LUF/DAVID/SA) LAPAROSCOPY ENTEROLYSIS 2020-03-02 00:00:00 [facility] SEPARATE PROCEDU [facility] (LUF/DAVID/SA) COLONOSCOPY FLX DX W/COLLJ 2020-02-26 00:00:00 C HI [facility] SPEC WHEN PFR [facility] (LUF/DAVID/SA) ROBOTIC RIGHT OOPHORECTOMY 2019-03-21 17:09:00 C HI [facility] LUF (Right) [facility] (LUF/DAVID/SA) CYSTO RGP STENT PLACEMENT 2015-04-20 14:01:00 [facility] CYSTO RGP STENT PLACEMENT 2015-04-20 14:01:00 CH [facility] Hysterectomy [facility] (LUF/DAVID/SA) Total thyroidectomy [facility] (LUF/DAVID/SA) section [facility] (LUF/DAVID/SA) ABDOMINAL ADHESIONS [facility] REMOVED [facility] (LUF/DAVID/SA) Extracorporeal shockwave [facility] lithotripsy [facility] (LUF/DAVID/SA) MULTIPLE CYSTECTOMYS DONE [facility] (LUF/[facility]VID/SA) MULTIPLE CYSTECTOMYS DONE [facility] (LUF/DAVID/SA) ABDOMINAL ADHESIONS [facility] REMOVED [facility] (LUF/DAVID/SA) Appendectomy [facility] (LUF/DAVID/SA) Plan of Care Planned Activity [...] Nba, STLMLC STLMLC Common 08:27:02 Josué 0127 [facility] 2021-07-26 Outpatient Nba, STLMLC STLMLC Common 14:20:31 Josué 1203 [facility] 2021-07-26 Outpatient Nba, STLMLC STLMLC Common 14:05:52 Josué 1027 [facility] 2021-07-26 Outpatient Nba, STLMLC STLMLC Common 12:01:28 Josué 1103 [facility] 2021-07-26 Outpatient Nba, STLMLC STLMLC Common 11:56:42 Josué 1019 [facility] 2021-07-26 Outpatient Nba, STLMLC STLMLC Common 11:49:38 Josué 0928 [facility] 2021-07-26 Outpatient Nba, STLMLC STLMLC [id number] Common 11:48:02 Josué 0922 [facility] 2021-07-26 Outpatient JEANA Arango [facility] Common 11:47:47 Josué 0921 [facility] 2021-07-26 Outpatient JEANA Arango [facility] Common 11:42:15 Josué 0901 [facility] 2021-07-[address] [facility]:32[facility]09 Josué 0720 [facility] 2022-02-19 2022-02-19 Emergency X STEVEN, [facility] ERT [id number] Univers 09:15:00 11:05:00 TRICE [facility] 2022-02-19 2022-02-19 [facility] 1.2.840.114 [id number] Univers 09:15:00 11:05:00 [facility] 350.1.13.10 i ty of [place] 4.2.7.2.686 [facility] [phone] [address] 2021-11-29 2021-11-29 [facility] 1.2.840.114 [id number] Univers 17:40:00 18:00:00 Care [facility] 350.1.13.10 it y of [place] 4.2.7.2.686 Jacques as SUE?BLEA [phone] [address] MEDICAL OFFICE BUILDING 2021-11-29 2021-11-29 Outpatient R MOHAN [facility] [id number] Univers 17:40:00 17:40:00 AMEENA ity [facility] 2021-10-26 2021-10-26 Office GEOVANI Blas 1.2.840.1 [id number] Univers 09:45:00 10:47:06 Visit Praveen 13588.1.1 ity of 3.412.2.7 [place] .3.580510 .8 [facility] 2021-10-26 2021-10-26 Office Shiva 1.2.840.1 [id number] Univers 09:45:00 10:47:06 Visit Praveen 45083.1.1 ity of 3.412.2.7 [place] .3.082068 MD Carter8 [facility] 2021-10-26 2021-10-26 Travel 1.2.840.1 1.2.441.411 [id number] Univers 00:00:00 00:00:00 27898.1.1 350.1.13.41 ity of 3.412.2.7 2.[place].7.3.698 [place] .3.457863 084.8 .8 [facility] 2021-10-26 2021-10-26 Travel 1.2.840.1 1.2.012.968 [id number] Univers 00:00:00 00:00:00 89751.1.1 350.1.13.41 ity of 3.412.2.7 [place].3.698 [place] .3.309323 084.8 .8 [facility] 2021-10-15 2021-10-15 JAYLANER 1 SHAMAA, [facility] [id number] 22:25:00 22:45:00 [facility] EKTA [facility] [address] stefanie MEHTA (LUF/LI AVE, V/SA) [place] [address] 2021-10-15 2021-10-15 Inpatient [facility] 79e1 4a53-b St 00:00:00 00:00:00 [place] 896-4ae3-9 [facility], [id number] Memor ia [address] 097eaa stefanie MEHTA (LUF/LI AVE, V/SA) [place] [address] 2021-10-15 2021-10-15 Inpatient [facility] 2f6e c8b8-[address] [facility] 00:00:00 00:00:00 [place] 053-4dfa-8 [facility], [id number] Memor ia [address] [id number] stefanie MEHTA (LUF/LI AVE, V/SA) [place] [address] 2021-08-07 2021-08-07 Emergency EM Clements, [facility] [id number] 2126 [facility] 09:36:00 12:55:00 Olga Oshea [facility] 2021-05-30 2021-05-30 ambulatory STLMLC STLMLC [id number] Common 00:00:00 00:00:00 [facility] 2021-05-29 2021-05-29 ambulatory STLMLC STLMLC [id number] Common 00:00:00 00:00:00 [facility] 2021-04-26 2021-04-26 Outpatient STLMLC STLMLC [id number] Common 00:00:00 00:00:00 [facility] 2021-04-23 2021-04-23 UNSPECIFIE 1 JANIA STL EMD [id number] 00:46:00 02:08:[address] [facility] ABDOMINAL Memori a PAIN l (LUF/LI V/SA) 2021-04-23 2021-04-23 Inpatient [facility] fb ce73-5 St 00:00:00 00:00:00 [place] g24-1h39-3 [facility], [id number]-ef9xh9 Memor ia [address] a89c0d l [place] (LUF/LI AVE, V/[place] [address] 2021-04-23 2021-04-23 Inpatient [facility] 6aab 1878-[address] 00:00:00 00:00:00 [place] n7u-1569-5 [facility], [id number] Memor ia [address] 822c23 l [place] (LUF/LI AVE, V/SA) [place] [address] 2021-03-24 2021-03-24 ANXIETY 1 COTTON, [facility] [id number] 10:25:00 12:27:00 DISORDER REHAN [facility] UNSPECIFIE [place], Memor ia D [address] [place] (LUF/LI AVE, V/SA) [place] [address] 2021-03-24 2021-03-24 Inpatient [facility] f871 cc2a-c [facility] 00:[facility]:00 00:00:00 [place] 9aa-405b-9 [facility], [id number] Memor ia [address] cf90e3 l [place] (LUF/LI AVE, V/[place] [address] 2021-03-24 2021-03-24 Inpatient [facility] e945 ff19-c [facility] 00:00:00 00:00:00 [place] i36-8o21-i [facility], 88b-033ffa Memor ia [address] 683da2 l [place] (LUF/LI AVE, V/[place] [address] 2021-03-23 2021-03-23 Orders Nofies, 1.2.840.1 [id number] Univers 00:00:00 00:00:00 Only Viktoriya Charlton 74181.1.1 ity of 3.412.2.7 [place] .3.375297 .8 [facility] 2021-03-23 2021-03-23 Orders Nofies, 1.2.840.1 [id number] Univers 00:00:00 00:00:00 Only Viktoriya Charlton 83536.1.1 ity of 3.412.2.7 [place] .3.716149 MD Carter8 [facility] 2021-03-10 2021-03-10 [facility] [id number] 10:29:00 13:50:00 NOT [facility], Memori a [address] [place] (LUF/LI AVE, V/SA) [place] [address] 2021-03-10 2021-03-10 Inpatient [facility] 16e7 6598-b [facility] 00:00:00 00:00:00 [place] a1u-9449-7 [facility], [id number]-[id number] Memor ia [address] 8ebb0b l [place] (LUF/LI AVE, V/[place] [address] 2021-03-10 2021-03-10 Inpatient [facility] 518c 3339-c [facility] 00:00:00 00:00:00 [place] j96-2rg4-9 [facility], [id number]-[id number] Memor ia [address] [id number] l [place] (LUF/LI AVE, V/[place]) [place] [address] 2021-02-23 2021-02-23 RIGHT E [facility] [id number] 08:15:00 12:44:[address] [facility] [address] [place] (LUF/LI AVE, V/SA) [place] [address] 2021-02-23 2021-02-23 Inpatient [facility] 89b5 d1de-[address] 00:00:00 00:00:00 [place] 09f-406d-9 [facility], 74d-24f9de Memor ia [address] e8fcf1 l [place] (LUF/LI AVE, V/[place]) [place] [address] 2021-02-23 2021-02-23 Inpatient [facility] 8500 e20f-[address] 00:00:00 00:00:00 [place] 1ef-425c-a [facility], [id number] [facility] ia [address] 1655de l [place] (LUF/LI AVE, V/[place]) [place] [address] 2021-01-10 2021-01-10 CALCULUS E JANIA, [facility] [id number] 00:21:00 03:06:00 [facility] [address] [place] (LUF/LI AVE, V/SA) [place] [address] 2021-01-10 2021-01-10 Inpatient [facility] ff0d 2205-c [facility] 00:00:00 00:00:00 [place] v37-6h78-s [facility], 72a-11f6e9 Memor ia [address] 3fb6a8 l [place] (LUF/LI AVE, V/[place]) [place] [address] 2021-01-10 2021-01-10 Inpatient [facility] deee fe83-e [facility] 00:00:00 00:00:00 [place] ff6-4d87-9 [facility], 32e-[id number] Memor ia [address] e09ed4 l [place] (LUF/LI AVE, V/SA) [place] ROSA [address] 2020-12-27 2020-12-27 Emergency [facility] Zarina [id number] 37 [place] 00:00:00 00:00:[address] 2020-12-22 2020-12-22 Outpatient 3 LONI MURILLO TIC [id number] 09:00:00 09:00:00 SKYE Dhaliwal Memoria l (LUF/LI V/SA) 2020-12-13 2020-12-13 Emergency EM Ana, HCAKW [facility] [id number] 205 [facility] 01:53:00 06:36:[address] [place] [address] 2020-12-12 2020-12-12 RIGHT Jake COTTON, [facility] [id number] 12:33:00 14:00:00 [facility], Memoria PAIN [address] [place] (LUF/LI AVE, V/SA) [place] [address] 2020-12-12 2020-12-12 Inpatient [facility] e2c0 cb47-b [facility] 00:00:00 00:00:00 [place] 82f-45d0-a [facility], 13e-0f9f6d Memor ia [address] [id number] l [place] (LUF/LI AVE, V/SA) [place]AD[place] ROSA [address] 2020-12-12 2020-12-12 Inpatient [facility] 43ed f7fe-[address] 00:00:00 00:00:00 [place] d36-65lz-o [facility], [id number] Memor ia [address] 70ade3 l [place] (LUF/LI AVE, V/SA) [place], [place] [address] 2020-12-08 2020-12-08 SHREYAS SOTOMAYOR, [facility] [id number] 09:44:00 12:26:00 D WAYTT [facility] ABDOMINAL [place], [facility] PAIN [address] [place] (LUF/LI AVE, V/[place]) [place] [address] 2020-12-08 2020-12-08 Inpatient [facility] 6a3f a794-a [facility] 00:00:00 00:00:00 [place] 6v7-9b35-0 [facility], [id number] Memor ia [address] 9973a7 l [place] (LUF/LI AVE, V/[place]) [place] [address] 2020-11-25 2020-11-25 UNSPECIFIE [facility] [id number] 00:13:00 00:30:00 D [facility] ABDOMINAL [place], [facility] a PAIN [address] [place] (LUF/LI AVE, V/[place]) [place] [address] 2020-11-25 2020-11-25 Inpatient [facility] 3041 db6a-[address] 00:00:00 00:00:00 [place] fb6-4754-b [facility], [id number]-qqh395 Memor ia [address] 841f4f l [place] (LUF/LI AVE, V/[place]) [place] [address] 2020-11-25 2020-11-25 Inpatient [facility] a3eb ed11-a [facility] 00:00:00 00:00:00 [place] m70-1mn2-4 [facility], [id number] Memor ia [address] ea5dda l [place] (LUF/LI AVE, V/[place]) [place] [address] 2020-11-21 2020-11-21 ENDOMETRIO 1 [facility] [id number] 07:14:00 09:53:00 SIS [facility] UNSPECIFIE [place], Memor ia D [address] [place] (LUF/LI AVE, V/[place]) [place] [address] 2020-11-21 2020-11-21 Inpatient [facility] 90f0 278b-[address] 00:00:00 00:00:00 [place] 9s9-46es-5 [facility], 4bb-5eeded Memor ia [address] 6h1920 l [place] (LUF/LI AVE, V/SA) [place] [address] 2020-11-21 2020-11-21 Inpatient [facility] 3b21 9c7a-[address] 00:00:00 00:00:00 [place] 30a-405e-8 [facility], [id number] Memor ia [address] 3040c4 l [place] (LUF/LI AVE, V/SA) [place] [address] 2020-11-14 2020-11-14 GASTRITIS 1 [facility] EMD [id number] 09:27:00 14:37:00 UNS REHAN Dhaliwal WITHOUT Memoria BLEEDING l (LUF/LI V/SA) 2020-11-14 2020-11-14 Inpatient [facility] d4fe d3e2-[address] 00:00:00 00:00:00 [place] 3cf-4b7a-a [facility], [id number] Memor ia [address] 2d56cc l [place] (LUF/LI AVE, V/SA) [place], [place] [address] 2020-11-14 2020-11-14 Inpatient [facility] 324e 65b9-b St 00:00:00 00:00:00 [place] 464-403c-8 [facility], [id number] Memor ia [address] d7608d l [place] (LUF/LI AVE, V/SA) [place], [place] [address] 2020-11-08 2020-11-08 OTHER E COTTON, [facility] [id number] 08:04:00 13:13:00 CHRONIC REHAN Dhaliwal PAIN [place], Memoria [address] [place] (LUF/LI AVE, V/[place]) [place] [address] 2020-11-08 2020-11-08 Inpatient [facility] 8079 b52c-c [facility] 00:00:00 00:00:00 [place] ed8-4ae3-8 [facility], [id number] Memor ia [address] cf6d84 l [place] (LUF/LI AVE, V/[place]) [place] [address] 2020-11-08 2020-11-08 Inpatient [facility] 0f07 dc59-5 St 00:00:00 00:00:00 [place] 292-4184-b [facility], [id number]-[id number] Memor ia [address] d1bfd4 l [place] (LUF/LI AVE, V/SA) [facility] [place] [address] 2020-11-08 2020-11-08 Inpatient [facility] 40b4 e14c-1 St 00:00:00 00:00:00 [place] 784-40e4-9 [facility], [id number] Memor ia [address] 29ea9a l [place] (LUF/LI AVE, V/SA) [place], [place] [address] 2020-11-01 2020-11-01 NAUSEA Jake MUÑOZ, [facility] [id number] 00:27:00 03:55:00 WITH CLEMENT [facility], Memoria UNSPECIFIE [address] l D [place] (LUF/LI AVE, V/SA) [place], [place] [address] 2020-11-01 2020-11-01 Inpatient [facility] 1ec3 64c1-c St 00:00:00 00:00:00 [place] m29-4jpg-e [facility], 85a-y5000a Memor ia [address] p5169n l [place] (LUF/LI AVE, V/SA) [place], [place] [address] 2020-11-01 2020-11-01 Inpatient [facility] 79c0 b023-[address] 00:00:00 00:00:00 [place] 7x1-011d-m [facility], [id number] Memor ia [address] 783eec l [place] (LUF/LI AVE, V/SA) [facility] [place] [address] 2020-10-04 2020-10-05 OTHER E RODRICK, [facility] [address] 23:32:00 01:00:00 CHRONIC JUAN [facility] [place], Memoria [address] [place] (LUF/LI AVE, V/SA) [place] [address] 2020-10-04 2020-10-04 Inpatient [facility] b016 f3f5-a [facility] 00:00:00 00:00:00 [place] 5k6-7m9s-u [facility], 67e-8i1369 Memor ia [address] bb93d3 l [place] (LUF/LI AVE, V/SA) [place] [address] 2020-10-04 2020-10-04 Inpatient [facility] ea96 0c7a-[address] 00:00:00 00:00:00 [place] 25c-4997-b [facility], [id number]-[id number] Memor ia [address] 1f27e6 l [place] (LUF/LI AVE, V/SA) [place] [address] 2020-09-18 2020-09-18 OTHER E [facility] [id number] 01:00:00 04:44:00 CHRONIC [facility] [place] [address] [place] (LUF/LI AVE, V/SA) [facility] [address] 2020-09-18 2020-09-18 Inpatient [facility] b80a 7ee5-[address] 00:00:00 00:00:00 [place] 8q3-061y-1 [facility], [id number] Memor ia [address] [id number] l [place] (LUF/LI AVE, V/[place]) [place] [address] 2020-09-18 2020-09-18 Inpatient [facility] 1a33 0198-a [facility] 00:00:00 00:00:00 [place] 921-44cf-8 [facility], [id number] Memor ia [address] [id number] l [place] (LUF/LI AVE, V/SA) [place] [address] 2020-09-12 2020-09-12 ENDOMETRIO E KOSCIUK, [facility] [place] [id number] 00:46:00 02:38:00 SIS [facility]ukes UNSPECIFIE [place], Memor ia D [address] [place] (LUF/LI AVE, V/[place]) [place] [address] 2020-09-12 2020-09-12 Inpatient [facility] 726d 153b-a [facility] 00:00:00 00:00:00 [place] b3q-8091-1 [facility], [id number] Memor ia [address] 2913af l [place] (LUF/LI AVE, V/[place]) [place] [address] 2020-09-12 2020-09-12 Inpatient [facility] 9a2d b59c-c [facility] 00:00:00 00:00:00 [place] 607-4f36-8 [facility], [id number] Memor ia [address] 655cce l [place] (LUF/LI A[place], V/[place]) [place] [address] 2020-08-22 2020-08-22 OTHER Jake MENSAH, [facility] [address] 01:13:00 03:24:00 CHRONIC [facility] PAIN [place], Memoria [address] [place] (LUF/LI AVE, V/[place]) [place] [address] 2020-08-22 2020-08-22 Inpatient [facility] 7a1d d2a9-[address] 00:00:00 00:00:00 [place] 050-4a19-8 [facility], 62e-7ef55a Memor ia [address] 6eae2a l [place] (LUF/LI A[place], V/[place]) [place] [address] 2020-08-22 2020-08-22 Inpatient [facility] 53d3 2542-f [facility] 00:00:00 00:00:00 [place] 72a-4479-9 [facility], 7da-c14e55 Memor ia [address] 284d1a l [place] (LUF/LI A[place], V/[place]) [place] [address] 2020-08-06 2020-08-06 Inpatient Jake MENSAH [facility] [id number] 01:21:00 03:35:00 [facility] [address] [place] (LUF/LI AVE, V/SA) [place] [address] 2020-08-06 2020-08-06 Inpatient [facility] 07b7 067c-a [facility] 00:00:00 00:00:00 [place] 6v9-8wk1-5 [facility], [id number] Memor ia [address] 4f7e15 l [place] (LUF/LI AVE, V/SA) [place] [address] 2020-07-19 2020-07-19 RIGHT Jake COTTON, [facility] [address] 07:50:00 11:20:[facility] [address] [place] (LUF/LI AVE, V/SA) [place] [address] 2020-07-19 2020-07-19 Inpatient [facility] 625d 6050-c [facility] 00:00:00 00:00:00 [place] 92c-4e48-9 [facility], [id number]-aa7c63 Memor ia [address] [id number] l [place] (LUF/LI AVE, V/SA) [place] [address] 2020-07-19 2020-07-19 Inpatient [facility] 0f28 [id number] 00:00:00 00:00:00 [place] bbb-4c99-b [facility], [id number]-[id number] Memor ia [address] ca6e76 l [place] (LUF/LI AVE, V/SA) [place] [address] 2020-07-05 2020-07-05 OTHER E RODRICK, [facility] [id number] 02:42:00 05:00:00 CHRONIC [facility], Memoria [address] [place] (LUF/LI AVE, V/SA) [place] [address] 2020-07-05 2020-07-05 Inpatient [facility] 525e 4189-f [facility] 00:00:00 00:00:00 [place] bff-495f-b [facility], [id number] Memor ia [address] 7ec68b l [place] (LUF/LI AVE, V/SA) [place], [place] [address] 2020-07-05 2020-07-05 Inpatient [facility] c54b 2c2e-e [facility] 00:00:00 00:00:00 [place] 987-4ea3-9 [facility], [id number] Memor ia [address] [id number] l [place] (LUF/LI A[place], V/[place]) [place] [address] 2020-06-10 2020-06-10 Outpatient STLMLC STLMLC [id number] Common 00:00:00 00:00:00 [facility] 2020-06-07 2020-06-07 Inpatient 1 COTTON, [facility] [place] [id number] 12:56:00 19:04:00 [facility] [address] [place] (LUF/LI AVE, V/SA) [place] [address] 2020-06-07 2020-06-07 Inpatient [facility] 5603 9727-e [facility] 00:00:00 00:00:00 [place] aaa-4da7-9 [facility], [id number] Memor ia [address] 1139d5 l [place] (LUF/LI AVE, V/SA) [place] [address] 2020-05-31 2020-05-31 Inpatient E YURY, [facility] [place] [id number] 09:31:00 14:13:00 [facility] [address] [place] (LUF/LI A[address], V/SA) [place] [address] 2020-05-10 2020-05-10 Outpatient STLMLC STLMLC [id number] Common 00:00:00 00:00:00 [facility] 2020-05-09 2020-05-09 Outpatient STLMLC STLMLC [id number] Common 00:00:00 00:00:00 [facility] 2020-05-05 2020-05-05 Outpatient STLMLC STLMLC [id number] Common 00:00:00 00:00:00 [facility] 2020-05-02 2020-05-02 Outpatient STLMLC STLMLC [id number] Common 00:00:00 00:00:00 [facility] 2020-05-02 2020-05-02 Outpatient STLMLC STLMLC [id number] Common 00:00:00 00:00:00 [facility] 2020-04-29 2020-04-29 Outpatient STLMLC STLMLC [id number] Common 00:00:00 00:00:00 [facility] 2020-04-25 2020-04-25 LEFT LOWER E [facility] [id number] 16:46:00 21:30:00 [facility]AD[facility] [address] [place] (LUF/LI A[address], V/SA) [place] [address] 2020-04-22 2020-04-22 Outpatient STLMLC STLMLC [id number] Common 00:00:00 00:00:00 [facility] 2020-04-20 2020-04-20 PROC&TX [facility] [id number] 15:39:00 16:03:00 NOT [facility] OUT PT [address] [place] (LUF/LI [place], V/SA) [place] [address] 2020-04-20 2020-04-20 Outpatient STLMLC STLMLC [id number] Common 00:00:00 00:00:00 [facility] 2020-04-20 2020-04-20 Outpatient STLMLC STLMLC [id number] Common 00:00:00 00:00:00 [facility] 2020-04-15 2020-04-15 Outpatient STLMLC STLMLC [id number] Common 00:00:00 00:00:00 [facility] 2020-04-13 2020-04-13 Outpatient STLMLC STLMLC [id number] Common 00:00:00 00:00:00 [facility] 2020-04-12 2020-04-12 Outpatient STLMLC STLMLC [id number] Common 00:00:00 00:00:00 [facility] 2020-04-11 2020-04-11 Outpatient STLMLC STLMLC [id number] Common 00:00:00 00:00:00 [facility] 2020-04-08 2020-04-08 Outpatient STLMLC STLMLC [id number] Common 00:00:00 00:00:00 [facility] 2020-04-06 2020-04-06 Outpatient STLMLC STLMLC [id number] Common 00:00:00 00:00:00 [facility] 2020-04-04 2020-04-04 Outpatient STLMLC STLMLC [id number] Common 00:00:00 00:00:00 [facility] 2020-03-31 2020-03-31 Outpatient STLMLC STLMLC [id number] Common 00:00:00 00:00:00 [facility] 2020-03-29 2020-03-29 Outpatient GEOVANI BLAS [facility] [id number] 00:00:00 00:00:00 PRAVEEN payton 2020-03-29 2020-03-29 Outpatient STLML[facility] STL[facility] [id number] Common 00:00:00 00:00:00 [facility] 2020-03-28 2020-03-28 Outpatient [facility]LML[facility] STL[facility] [id number] Common 00:00:00 00:00:00 [facility] 2020-03-22 2020-03-22 Outpatient STLMLC STLMLC [id number] Common 00:00:00 00:00:00 [facility] 2020-03-21 2020-03-21 Outpatient STLML[facility] STLMLC [id number] Common 00:00:00 00:00:00 [facility] 2020-03-20 2020-03-20 FEDE COTTON, [facility] [id number] [facility] 17:08:00 22:56:00 ABDOMINAL REHAN CROWNPOINT Luke s [place]IN [place], [facility] UNSPECIFIE [address] (LUF/YUKI PIZANOE, V/SA) YOLANDA ROSA [id number] 2020-03-14 2020-03-17 CELLULJEFFERSON STAFFORD, [facility] [id number] [facility] [address] 14:54:00 11:30:00 OF [place] Luke s [place]OM[place]AL [place], [facility] WALL [address] ([address], V/SA) [place] [address] 2020-03-03 2020-03-03 [facility] [id number] Common 13:33:00 13:33:00 Clinics [facility] 2020-03-02 2020-03-02 FE RYAN WOLFE, [facility] [id number] 05:58:00 15:35:00 PERITON LIZBETH [facility] POSTINFECT [address] ([address], V/SA) [facility] [place] [address] 2020-03-02 2020-03-02 Outpatient [facility] [id number] Common 00:00:00 00:00:00 [facility] 2020-03-01 2020-03-01 [facility] [id number] Common 09:15:00 09:15:00 [facility] 2020-02-29 2020-02-29 [facility] [id number] Common 09:30:00 09:30:00 [facility] 2020-02-25 2020-02-27 LOWER E YURY, [facility] [place] [id number] [facility] [address] 13:21:00 12:09:00 ABDOMINAL REHAN [place] Luke s PAIN [facility] UNSPECIFIE [address] ([address], V/SA) [facility] [place] [address] 2020-02-25 2020-02-25 SHREYAS MENSAH, [facility] [id number] [facility] 00:40:00 05:00:00 D JUAN [facility] [place]OM[place]AL [place], [facility] PAIN [address] ([address], V/SA) [place] [address] 2020-01-25 2020-01-25 LOW BACK 1 YURY, [facility] [place] [id number] [facility] 11:28:00 13:15:00 PAIN REHAN [facility] [place] [address] ([address], V/SA) [place] [address] 2020-01-18 2020-01-18 Outpatient [facility] [id number] Common 11:45:00 11:45:00 Clinics [facility] 2019-12-09 2019-12-09 OTHER E [facility] [id number] 03:03:00 05:08:00 CHRONIC [facility] PAIN [place], [facility] [address] ([address], V/SA) [place] [address] 2019-11-24 2019-11-24 UNSPECIFIE E [facility] [id number] 00:31:00 05:30:00 D [facility] [place]OM[place]AL [place], [facility] PAIN [address] ([address], V/SA) [place] [address] 2019-10-07 2019-10-07 RIGHT 1 COTTON, [facility] [id number] 20:35:00 23:10:00 LOWER [facility]RANT [place], Memoria PAIN [address] ([address], V/SA) [place] [address] 2019-09-20 2019-09-20 RIGHT 1 COTTON, [facility] [id number] 00:33:00 04:23:00 LOWER [facility] [place], [facility] PAIN [address] ([address], V/SA) [place] [address] 2019-08-17 2019-08-17 UNSPECIFIE 1 TRUX, [facility] [id number] 02:18:00 04:45:00 D SYNAGO[place]UE [facility] s ABDOMINAL [place], Memori a PAIN [address] ([address], V/SA) [place] [address] 2019-04-22 2019-04-22 Outpatient [facility] [id number] Common 12:03:00 12:03:[address] [facility] 2019-04-14 2019-04-14 Outpatient [facility] [id number] Common 16:12:00 16:12:[address] [facility] [place] [employer] [facility] 2019-04-06 2019-04-06 Outpatient [facility] [id number] Common 12:16:00 12:16:[address] [facility] [place] [employer] [facility] 2019-03-31 2019-03-31 Outpatient [facility] [id number] Common 14:00:00 14:00:[address] [facility] [place] [employer] [facility] 2018-12-07 2018-12-07 UNSPECIFIE 1 QUINTIN BRITO [facility] [id number] St 01:06:00 04:45:00 D OVARIAN CROWNPOINT Luke s CYST RIGHT [facility] SIDE [address] ([address], V/SA) [place] [address] 2018-10-29 2018-10-29 N-PRSS CHR [place], [facility] [id number] St 06:59:00 23:59:00 ULCR SKIN [facility]KY [facility] [address], V/SA) [place] [address] 2018-10-22 2018-10-22 N-PRSS CHR [place], [facility] [id number] St 07:20:00 23:59:00 ULCR SKIN MIKY [facility] [address], V/SA) [place] [address] 2018-10-15 2018-10-15 N-PRSS CHR O [place], [facility] [id number] St 07:08:00 23:59:00 ULCR SKIN MIKY [facility] s [facility] [address], V/SA) [place] [address] 2018-09-30 2018-10-01 INFCT FOL 1 ZIBULEWSKY, [facility] [id number] [facility] 18:46:00 01:05:00 PRC SUPF DIMAS [facility] INC SRG [facility] SIT INIT [address], V/SA) [place] [address] 2018-09-01 2018-09-01 OTH 1 WANDA, [facility] [place] [id number] 09:12:00 14:00:00 NONINFL CLEMENT [facility] D/O OVARY [place], [facility] TUBE&BRD [address], V/SA) [place] [address] 2018-05-13 2018-05-13 Inpatient 1 WANDA, [facility] [place] [id number] 10:52:00 13:46:00 CLEMENT [facility] [address], V/SA) [place] [address] 2017-12-24 2017-12-24 UNSPECIFIE 1 QUINTIN BRITO [facility] [id number] [facility] 07:51:00 13:52:00 D OVARIAN [facility] s CYST RIGHT [place], [facility] SIDE [address], V/SA) [place] [address] 2017-06-20 2017-06-21 HYDRONPHRO 1 RODRICK, [facility] [place] [id number] 23:01:00 03:55:00 S JUAN [facility] RENL&URETR [place], [facility] L CALCUL [address], V/SA) [place] [address] 2017-05-13 2017-05-13 OTHER 3 MERLE, [facility] [place] [id number] 15:40:00 23:59:00 FATIGUE ASA [facility], [facility] [address] V[address]SA) [place] [address] Results Test Description Test Time Test Comments Results Result Comments Source COMP. METABOLIC PANEL (06525) 2022-02-19 14:56:05 Test Item Value Reference Range Interpretation Comme nts NA (test code = 7328517173) 137 mmol/L 135-145 K (test code = 5606946079) 4.2 mmol/L 3.5-5 CL (test code = 5845827956) 108 mmol/L 98-108 CO2 TOTAL (test code = 8130723855) 19 mmol/L 23-31 L AGAP (test code = 9715083370) 2-16 BUN (test code = 0066866861) 14 mg/dL 7-23 GLUCOSE (test code = 8056344406) 133 mg/dL 70-110 H CREATININE (test code = 0.56 mg/dL 0.5-1.04 5697753970) TOTAL BILI (test code = 0.4 mg/dL 0.1-1.4 7451646912) CALCIUM (test code = 5983112621) 8.9 mg/dL 8.6-10.6 T PROTEIN (test code = 8255690631) 6.5 g/dL 6.3-8.2 ALBUMIN (test code = 9118975997) 4.0 g/dL 3.5-5 ALK PHOS (test code = 5998180228) 84 U/L 34-122 ALTv (test code = 1742-6) 23 U/L 5-35 AST(SGOT) (test code = 2508020927) 24 U/L 13-40 eGFR (test code = 9417953763) mL/min/1.73m2 RENZO (test code = RENZO) Association [...] tests). Lab Interpretation (test code = Abnormal 17030-6) [facility] 14:55:44 Test Item Value Reference Range Interpretation Comments LIPASE (test code = 3461531729) 81 U/L 0-220 Lab Interpretation (test code = Normal 70060-2) [facility] WITH [id number] 14:36:26 Test Item Value Reference Range Interpretation Comments WBC (test code = See_Comment [Automated 90-2) message] The sy stem which generated this result transmitted reference range : 4.30 - 11.10 10*3/?L. The reference range was not used to interpret this result as normal/abnormal . RBC (test code = See_Comment [Automated 078-8) message] The sy stem which generated this [...] RDW-SD (test code = 43.9 fL 39-49.9 90894-1) RDW-CV (test code = 13.7 % 12-15.5 788-0) PLT (test code = See_Comment [Automated 777-3) message] The sy stem which generated this result transmitted reference range : 166 - 358 10*3/ ?L. The reference r bruce was not used to interpret this result as normal/abnormal . MPV (test code = 8.5 fL 9.5-12.9 L 99956-0) NRBC/100 WBC (test See_Comment [Automat ed code = 4180022449) message] The system which generated this result transmitted reference range : 0.0 - 10.0 /100 WBCs. The refer ence range was not u sed to interpret th is result as normal/abnormal . NRBC x10^3 (test code See_Comment [Auto mated = 7841115010) message] The s ystem which generated this result transmitted reference range : 10*3/?L. The reference range was not used to interpret this result as normal/abnormal . GRAN MAT (NEUT) % 58.7 % (test code = 770-8) IMM GRAN % (test code 1.10 % = 4807112668) LYMPH % (test code = 31.6 % 736-9) MONO % (test code = 6.8 % 5905-5) EOS % (test code = 1.4 % 713-8) BASO % (test code = 0.4 % 706-2) GRAN MAT x10^3(ANC) 3.30 10*3/uL 1.88-7.09 (test code = 8412387442) IMM GRAN x10^3 (test 0.06 10*3/uL 0-0.06 code = 9510229911) LYMPH x10^3 (test code 1.77 10*3/uL 1.32-3.29 = 731-0) MONO x10^3 (test code 0.38 10*3/uL 0.33-0.92 = 742-7) EOS x10^3 (test code = 0.08 10*3/uL 0.03-0.39 711-2) BASO x10^3 (test code 0.01-0.07 = 704-7) Lab Interpretation Abnormal (test code = 65792-8) [facility] MOLECULAR [id number] 22:58:14 Test Item Value Reference Range Interpretation Comments POCT Molecular FluA (test code = Negative Negative 18052-9) POCT Molecular FluB (test code = Negative Negative 66015-3) Lab Interpretation (test code = Normal 50533-0) [facility] (LIVER)2021-10-16 13:57:00 Test Item Value [...] (test code = 0.2 mg/dl 0.0-1.1 IBIL) [id number] 13:57:00 Test Item Value Reference Range Interpretation Comments Lipase (test code = LIPA) 114 U/L 73-393 AMYLASE, [id number] 13:57:00 Test Item Value Reference Range Interpretation Comments Amylase (test code = AMYL) 51 U/L 25-115 STAT LAB CHEM [id number] 22:45:00 Test Item Value Reference Range Interpretation [...] 24.0-29.0 L STAT LAB CBC WITH AUTO [id number] 22:43:00 Test Item Value Reference Range Interpretation [...] = IG%) 0.2 % 0.0-0.4 HEPATIC FUNCTION [id number] 13:03:00 Test Item Value Reference Range Interpretation [...] 96 Unit/L 45-117 N code = ALKP) [id number] 13:03:00 Test Item Value Reference Range Interpretation Comments LIPASE (test code = LIP) 83 Unit/L 114-286 L BASIC METABOLIC [id number] 13:03:00 Test Item Value Reference Range Interpretation [...] 8.5-10.1 N UA RFLX MICR CULT IF [id number] 12:44:00 Test Item Value Reference Range Interpretation [...] OF URINE: CLEAN CATCH- CT ABD PELVIS W/[id number] 12:27:00 [facility] 1985 Sex: F Name: LAUREN BETH [facility] : 1985 Age/S: 36 / F [address] Unit #: [id number] Loc: [place] [address] Phys: Marco Hilton NP Acct: [id number] Dis Date: Status: REG ER PHONE #:[phone] Exam Date: 08/07/2021 1223 FAX #: Reason: LLQ ABD PAIN EXAMS: CPT: [id number] CT ABD PELVIS W/CONT 26035 EXAM: CT ABDOMEN AND PELVIS WITH CONTRAST. [...] Signed Report (CONTINUED) Name: LAUREN BETH [facility] : 1985 Age/S: 36 / F [address] Unit #: [id number] Loc: [place] [address] Phys: Marco Hilton NP Acct: [id number] Dis Date: Status: REG ER PHONE #: [phone] Exam Date: 08/07/2021 1223 FAX #: Reason: LLQ ABD PAIN EXAMS: CPT: [id number] CT ABD PELVIS W/CONT 72184 <Continued> at 1227 Reportedand signed by: Alma Cartwright M.D. CC: Olga Clements DO; Marco Hilton NP Technologist:RT Danyelle(R) CTDI: DLP: Trnscb Date/Time: 08/07/2021 (1227) VereniceMD16 Orig Print D/T: S: 08/07/2021 (7180) PAGE 2 Signed ReportCBC W/AUTO [id number] 12:23:00 Test Item Value Reference Range Interpretation [...] DIFF/SCN CRITERIA = MDIFF) [facility]2021-03-24 17:04:00 Test Item Value Reference Range [...] contact the [facility] at [phone]. [id number] 12:37:00 Test Item Value Reference Range Interpretation [...] 0.5-1.3 code = CREA) EGFR if >60 Lithuanian (test code mL/min/1.73m\\ = EGFRAA) S\\2 EGFR if Non- >60 Estimate d Glomerular Lithuanian (test code mL/min/1.73m\\ Filtrat ion Rate (eGFR) [...] of c hronic kidney failure. STAT LAB [id number] 12:11:00 Test Item Value Reference Range Interpretation [...] after the clini felipa event. PT AND [id number] 12:09:00 Test Item Value Reference Range Interpretation Comments Protime (test code 9.5 seconds 9.5-12.1 = PT) INR (test code = 0.9 0.9-1.1 INR results are intended INR) ONLY to monitor Oral Anticoagulant t herapy in stablized patie nts. The INR Therapeutic Range is 2.0 - 3.0 Patie nts with a mechanical he art, the INR Range is 2. 5 - 3.5 [id number] 12:09:00 Test Item Value Reference Range Interpretation Comments aPTT (test code = PTT) 22.3 seconds 23.9-30.7 L STAT LAB CBC WITH AUTO [id number] 11:57:00 Test Item Value Reference Range Interpretation [...] 0.3 % 0.0-0.4 XR CHEST AP/PA 1 [id number] 11:33:32 [facility] (LUF/DAVID/SA)Name: LAUREN BETH : 1985 Sex: FProcedure: XR CHEST AP/PA 1 VIEWOrder Date: 03/24/2021 10:57 AMOrdering Provider: REHAN Farrellinical Indication: [id number]: DyspneaComparison: September 30, 2018Findings:Cardiac size is normal.Pulmonary vasculature is normal.Mediastinal contour is normal.Aortic contour is normal.No acute infiltrates or effusions.There is no mass or pneumothorax.There is no evidence of active tuberculosis.There isno acute skeletal abnormality.Impression: Negative AP view of the chest.This final report was electronically signed by Dr Farzad Dewitt MD :28 AMDictated By: FARZAD DEWITTDate: 111:28CULTURE, [id number] 08:00:00Specimen: Urine SpecimensCollected: 03/10/2021 11:50 Status: Final [...] code = NEGATIVE NEGATIVE N UKET) Specific [place] 1.015 1.005-1.030 A (test code = USPGR) Blood (test code = NEGATIVE NEGATIVE N UBLD) PH (test code = UPH) 7.0 4.5-8.0 A Protein (test code = NEGATIVE NEGATIVE N UPROT) Urobilinogen (test 0.2 See_Comment N [Automat ed message] code = U UROB) The system [email or web address] generated this result transmit michael reference range [...] = NSE) STAT LAB CBC WITH AUTO [id number] 12:10:00 Test Item Value Reference Range Interpretation [...] 0.8 % 0.0-0.4 H STAT LAB CHEM [id number] 12:08:00 Test Item Value Reference Range Interpretation [...] = CREA) 0.5 mg/dl 0.6-1.3 L CULTURE, [id number] 08:26:00Specimen: Urine SpecimensCollected: 02/23/2021 08:35 Status: Final Last Updated: 02/24/2021 08:26 CULTURE (Final) (Final) Many Mixed Body Gabriela Isolated No Pathogens IsolatedCT ABDOMEN/PELVIS W/CONTRAST 2021-02-23 11:40:43 [facility] (LU/DAVID/SA)Name: LAUREN BETH : 1985 Sex: FProcedure: CT ABDOMEN/PELVIS W/CONTRASTOrder date: 02/23/2021 10:08 AMOrdering Provider: REHAN Farrellinical Indication: [id number]: Right lower quadrant painComparison: November 14, 2020Technique: [...] MD 111:35 AMDictated By: WILEY VELÁZQUEZDate: 02/23/2021 11:[id number] 10:44:00 Test Item Value Reference Range Interpretation Comments Lipase (test code = LIPA) 86 U/L 73-393 URINALYSIS WITH [id number] 08:58:00 Test Item Value Reference Range Interpretation Comments Color (test code = Light-Yellow UCOLR) Clarity (test code = Clear UCLAR) Glucose (test code = NEGATIVE NEGATIVE N UGLUC) Bilirubin (test code NEGATIVE NEGATIVE N = UBILI) Ketones (test code = NEGATIVE NEGATIVE N UKET) Specific [place] 1.020 1.005-1.030 A (test code = USPGR) Blood (test code = NEGATIVE NEGATIVE N UBLD) PH (test code = UPH) 6.0 4.5-8.0 A Protein (test code = NEGATIVE NEGATIVE N UPROT) Urobilinogen (test 0.2 See_Comment N [Automat ed message] code = U UROB) The system [facility] generated this result transmit michael reference range [...] = SQEP) STAT LAB CBC WITH AUTO [id number] 08:52:00 Test Item Value Reference Range Interpretation [...] IG%) 0.3 % 0.0-0.4 STAT LAB CHEM [id number] 08:52:00 Test Item Value Reference Range Interpretation [...] mg/dl 0.6-1.3 STAT LAB CBC WITH AUTO [id number] 02:37:00 Test Item Value Reference Range Interpretation [...] A value of 55 was entered by [id number] on 01/10/2021 02:3 7 Lymphocytes (test 43 % 13-42 H No previou s value code = LYMPH) was reported. A value of 43 was entered by [id number] on 01/10/2021 02:3 7 Monocytes (test 1 % 4-14 L No previous value code = MONOS) was reported. A value of 1 was entered by [id number] on 01/10/2021 02:3 7 Basophils (test 1 % 0-1 No previous value code = BASO) was reported. A value of 1 was entered by [id number] on 01/10/2021 02:3 7 Normal Morphology Normal WBC RBC Normal RBC \\T\\ N No pre vious value (test code = NRCM) and Platelet WBC was repor michael. A Morphology Morphology,Normal value of N ormal WBC RBC and WBC RBC and Platelet Platelet Morphology Morphology was entered by [id number] on 01/10/2021 02:3 7 AMYLASE, [id number] 02:14:00 Test Item Value Reference Range Interpretation Comments Amylase (test code = AMYL) 46 U/L 25-115 [id number] 02:14:00 Test Item Value Reference Range Interpretation Comments Lipase (test code = LIPA) 115 U/L 73-393 URINALYSIS WITH [id number] 02:07:00 Test Item Value Reference Range Interpretation Comments Color (test code = Light-Yellow UCOLR) Clarity (test code = Cloudy UCLAR) Glucose (test code = NEGATIVE NEGATIVE N UGLUC) Bilirubin (test code NEGATIVE NEGATIVE N = UBILI) Ketones (test code = NEGATIVE NEGATIVE N UKET) Specific [place] 1.025 1.005-1.030 A (test code = USPGR) Blood (test code = NEGATIVE NEGATIVE N UBLD) PH (test code = UPH) 6.0 4.5-8.0 A Protein (test code = NEGATIVE NEGATIVE N UPROT) Urobilinogen (test 0.2 See_Comment N [Automat ed message] code = U UROB) The system [facility] generated this result transmit michael reference range [...] (test code = NSE) STAT LAB CHEM [id number] 01:50:00 Test Item Value Reference Range Interpretation [...] 0.6 mg/dl 0.6-1.3 - CT ABD PELVIS W/[id number] 03:46:00 [facility] : 1985 Sex: F FAX: Annemarie Tesfaye [phone] [place]: St: REG Name: [facility] 1985 Age/S: 35/F [address] Unit: [id number] Loc: [place] [address] Phys: Annemarie Tesfaye [employer] Acct: [id number] Dis Date: Status: REG ER PHONE #: [phone] Exam Date: 12/13/2020 0325 FAX #: [phone]: DIFFUSE ABD PAIN WORSE RLQ, HX APPY, ROSE EXAMS: CPT CODE: [id number] CT ABD PELVIS W/CONT 63412 AFTER HOURS SERVICE ON: 12/13/2020 3:44 AM [...] the stomach, cholecystectomy, appendectomy and hysterectomy. at 8106 Reported and signed by: Neo Huber MD PAGE 1 Signed Report (CONTINUED) FAX: Annemarie Tesfaye [phone] [place]: St: REG Name: [facility] [place] : 1985 Age/S: 35/F [address] Unit: [id number] Loc: [place] [address] Phys: Annemarie Tesfaye NP Acct: [id number] Dis Date: Status: REG ER PHONE #: [phone] Exam Date: 12/13/2020 0325 FAX #: [phone] Reason: DIFFUSE ABD PAIN WORSE RLQ, HX APPY, ROSE EXAMS: CPT CODE: [id number] CT ABD PELVIS W/CONT 19636 <Continued> CC: Annemarie Tesfaye NP Technologist: PAMELA KRISHNAMURTHY; Jessi Guillory; JAIRO SANCHEZ JR Trnscrd Dt/Tm: 12/13/2020 (0346) [email or web address] Orig Print D/T: S: 12/13/2020 (034 PAGE 2 Signed ReportCOMPREHENSIVE METABOLIC [id number] 03:32:00 Test Item Value Reference Range Interpretation [...] U/L 38-126 N (test code = ALKP) [id number] 03:32:00 Test Item Value Reference Range Interpretation Comments LIPASE (test code = LIP) 82 U/L 23-300 N BEDSIDE [id number] 03:24:00 Test Item Value Reference Range Interpretation Comments BEDSIDE CREATININE (test code = 0.60 mg/dL 0.51-1.19 N CREATBED) CBC W/AUTO [id number] 03:14:00 Test Item Value Reference Range Interpretation [...] 0.0-0.1 N UA RFLX MICR CULT IF [id number] 02:59:00 Test Item Value Reference Range Interpretation [...] OF URINE: VOIDEDSTAT LAB CBC WITH AUTO [id number] 15:12:00 Test Item Value Reference Range Interpretation [...] 82 on 12/12/2020 15:12 STAT LAB CHEM [id number] 14:08:00 Test Item Value Reference Range Interpretation [...] mg/dl 0.6-1.3 L STAT LAB URINALYSIS WITHOUT [id number] 12:08:00 Test Item Value Reference Range Interpretation Comments Color (test code = Light-Yellow UCOLR) Clarity (test code = Cloudy UCLAR) Glucose (test code = NEGATIVE NEGATIVE N UGLUC) Bilirubin (test code NEGATIVE NEGATIVE N = UBILI) Ketones (test code = NEGATIVE NEGATIVE N UKET) Specific [place] 1.015 1.005-1.030 A (test code = USPGR) Blood (test code = NEGATIVE NEGATIVE N UBLD) PH (test code = UPH) 7.0 4.5-8.0 A Protein (test code = NEGATIVE NEGATIVE N UPROT) Urobilinogen (test 0.2 See_Comment N [Automat ed message] code = U UROB) The system [facility] generated this result transmit michael reference range [...] = 0.4 mg/dl 0.0-1.1 IBIL) URINALYSIS WITH [id number] 08:31:00 Test Item Value Reference Range Interpretation Comments Color (test code = Light-Yellow UCOLR) Clarity (test code = Clear UCLAR) Glucose (test code = NEGATIVE NEGATIVE N UGLUC) Bilirubin (test code NEGATIVE NEGATIVE N = UBILI) Ketones (test code = NEGATIVE NEGATIVE N UKET) Specific [place] 1.020 1.005-1.030 A (test code = USPGR) Blood (test code = NEGATIVE NEGATIVE N UBLD) PH (test code = UPH) 6.5 4.5-8.0 A Protein (test code = NEGATIVE NEGATIVE N UPROT) Urobilinogen (test 0.2 See_Comment N [Automat ed message] code = U UROB) The system [facility] generated this result transmit michael reference range [...] (test code = SQEP) STAT LAB CHEM [id number] 08:27:00 Test Item Value Reference Range Interpretation [...] 0.6-1.3 L STAT LAB CBC WITH AUTO [id number] 08:26:00 Test Item Value Reference Range Interpretation [...] 0.0-0.4 XR ABDOMEN 2 VIEWS FLAT / [id number] 08:18:50 [facility] ([facility]Name: LAUREN BETH : 1985 Sex: FProcedure: XR ABDOMEN 2 VIEWS FLAT / UPRIGHTOrder Date: 11/21/2020 7:43 AMOrdering Provider: REHAN Farrellinical Indication: [id number]: Abdominal painComparison: Nov 14 2020Findings:Bowel gas pattern is non-obstructive. No pneumoperitoneum.There is moderate volume stool burden.Surgical clips inthe right upper quadrant of the abdomen.Impression:Nonobstructive bowel gas pattern.This final report was electronically signed by Dr Silver Benitez MD :13 AMDictated By: GLORY BENITEZKDate: 11/21/2020 08:13CT ABDOMEN/PELVIS W/O [id number] 14:11:31 [facility] (LU[facility]SA)Name: LAUREN BETH : 1985 Sex: FProcedure: CT ABDOMEN/PELVIS W/O CONTRASTOrder Date: 11/14/2020 1:22 PMOrdering Provider: BILLY ACOSTA .Clinical Indication: [id number]: Right flank painComparison: Renal ultrasound November 08, [...] Farzad Dewitt MD :05 PMDictated By: FARZAD DEWITT.Date: 11/14/2020 14:05STAT LAB , [id number] 13:31:00 Test Item Value Reference Range Interpretation Comments (Urine) (test code = Negative PREGU) ONLY AVAILABLE 8A-12MNSTAT LAB CHEM [id number] 11:09:00 Test Item Value Reference Range Interpretation [...] mg/dl 0.6-1.3 L STAT LAB URINALYSIS WITHOUT [id number] 11:08:00 Test Item Value Reference Range Interpretation Comments Color (test code = Yellow Lt. Yellow A UCOLR) Clarity (test code = Clear UCLAR) Glucose (test code = Negative Negative N UGLUC) Bilirubin (test code Negative Negative N = UBILI) Ketones (test code = Negative Negative N UKET) Specific [place] 1.025 1.005-1.030 A (test code = USPGR) Blood (test code = Trace-intact Negative A UBLD) PH (test code = UPH) 6.0 4.5-8.0 A Protein (test code = Negative Negative N UPROT) Urobilinogen (test 0.2 See_Comment N [Automat ed message] code = U UROB) The system [facility] generated this result transmit michael reference range : 0.2. The refere nce range was not u sed to interpret th is result as normal/abnormal . Nitrite (test code = Negative Negative N UNITR) Leukocyte Esterase Negative Negative N (test code = ULEUK) STAT LAB CBC WITH AUTO [id number] 11:05:00 Test Item Value Reference Range Interpretation [...] code = IG%) 0.4 % 0.0-0.4 CULTURE, [id number] 08:43:00Specimen: Urine SpecimensCollected: 11/08/2020 09:59 Status: Final Last Updated: 11/09/2020 08:43 CULTURE (Final) (Final) Few Mixed Body Gabriela Isolated No Pathogens IsolatedUS RENAL & BLADDER (KIDNEYS) 2020-11-08 12:00:28 [facility] (LUF/[facility]/SA)Name: LAUREN BETH : 1985 Sex: FProcedure: [...] AMDictated By: GLORY BENITEZKDate: 11/08/2020 11:54URINALYSIS WITH [id number] 10:58:00 Test Item Value Reference Range Interpretation Comments Color (test code = Yellow UCOLR) Clarity (test code = Clear UCLAR) Glucose (test code = NEGATIVE NEGATIVE N UGLUC) Bilirubin (test code = NEGATIVE NEGATIVE N UBILI) Ketones (test code = NEGATIVE NEGATIVE N UKET) Specific [place] (test 1.030 1.005-1.030 A code = USPGR) Blood (test code = NEGATIVE NEGATIVE N UBLD) PH (test code = UPH) 6.0 4.5-8.0 A Protein (test code = NEGATIVE NEGATIVE N UPROT) Urobilinogen (test code 0.2 See_Comment N [Au tomated message] = U UROB) The system [employer] generated this result transmitted ref erence range: [...] 0-10 A (test code = SQEP) CULTURE, [id number] 08:13:00ER 17Specimen: Urine SpecimensCollected: 11/01/2020 01:10 Status: Final Last Updated: 11/02/2020 08:13 (1) ER 17 CULTURE (Final) (Final) Few Mixed Body Gabriela Isolated No Pathogens IsolatedXR ABD SERIES W/PA [id number] 03:48:37 [facility] (LU/[facility]/SA)Name: LAUREN BETH : 1985 [...] mg/dl 0.0-1.1 IBIL) ER 17STAT LAB CHEM [id number] 01:57:00 Test Item Value Reference Range Interpretation [...] 0.5 mg/dl 0.6-1.3 L ER 17URINALYSIS WITH [id number] 01:56:00 Test Item Value Reference Range Interpretation Comments Color (test code = Light-Yellow UCOLR) Clarity (test code = Clear UCLAR) Glucose (test code = 50 NEGATIVE A UGLUC) Bilirubin (test code NEGATIVE NEGATIVE N = UBILI) Ketones (test code = NEGATIVE NEGATIVE N UKET) Specific [place] 1.025 1.005-1.030 A (test code = USPGR) Blood (test code = NEGATIVE NEGATIVE N UBLD) PH (test code = UPH) 6.0 4.5-8.0 A Protein (test code = TRACE NEGATIVE A UPROT) Urobilinogen (test 0.2 See_Comment N [Automat ed message] code = U UROB) The system [email or web address] generated this result transmit michael reference range [...] SQEP) ER 17STAT LAB CBC WITH AUTO [id number] 01:55:00 Test Item Value Reference Range Interpretation [...] code = 0.1 mg/dl 0.0-1.1 IBIL) er [id number] 01:26:00 Test Item Value Reference Range Interpretation Comments Lipase (test code = LIPA) 154 U/L 73-393 ER 10STAT LAB CHEM [id number] 01:15:00 Test Item Value Reference Range Interpretation [...] 0.6 mg/dl 0.6-1.3 er 10STAT LAB , [id number] 01:14:00 Test Item Value Reference Range Interpretation Comments (Urine) (test code = Negative PREGU) er 10STAT LAB CBC WITH AUTO [id number] 01:13:00 Test Item Value Reference Range Interpretation [...] = IG%) 0.9 % 0.0-0.4 H er [id number] 04:21:00 Test Item Value Reference Range Interpretation [...] code = 0.1 mg/dl 0.0-1.1 IBIL) AMYLASE, [id number] 04:21:00 Test Item Value Reference Range Interpretation Comments Amylase (test code = AMYL) 47 U/L 25-115 URINALYSIS WITH [id number] 03:06:00 Test Item Value Reference Range Interpretation Comments Color (test code = Light-Yellow UCOLR) Clarity (test code = Clear UCLAR) Glucose (test code = NEGATIVE NEGATIVE N UGLUC) Bilirubin (test code NEGATIVE NEGATIVE N = UBILI) Ketones (test code = TRACE NEGATIVE A UKET) Specific [place] 1.025 1.005-1.030 A (test code = USPGR) Blood (test code = NEGATIVE NEGATIVE N UBLD) PH (test code = UPH) 5.5 4.5-8.0 A Protein (test code = NEGATIVE NEGATIVE N UPROT) Urobilinogen (test 0.2 See_Comment N [Automat ed message] code = U UROB) The system [facility] generated this result transmit michael reference range [...] (test code = NSE) STAT LAB CHEM [id number] 02:51:00 Test Item Value Reference Range Interpretation [...] mg/dl 0.6-1.3 STAT LAB CBC WITH AUTO [id number] 02:50:00 Test Item Value Reference Range Interpretation [...] XR ABDOMEN 1 VIEW (KUB)2020-09-12 01:51:21 [facility] ([facility]/[place])Name: LAUREN BETH : 1985 Sex: FPROCEDURE INFORMATION:Exam: [...] ALLENDate: 09/12/2020 01:50STAT LAB CBC WITH AUTO [id number] 01:29:00 Test Item Value Reference Range Interpretation [...] IG%) 0.4 % 0.0-0.4 STAT LAB CHEM [id number] 01:28:00 Test Item Value Reference Range Interpretation [...] = CREA) 0.6 mg/dl 0.6-1.3 URINALYSIS WITH [id number] 03:04:00 Test Item Value Reference Range Interpretation Comments Color (test code = Yellow UCOLR) Clarity (test code = Clear UCLAR) Glucose (test code = 100 NEGATIVE A UGLUC) Bilirubin (test code = NEGATIVE NEGATIVE N UBILI) Ketones (test code = TRACE NEGATIVE A UKET) Specific [place] (test >=1.030 1.005-1.030 A code = USPGR) Blood (test code = NEGATIVE NEGATIVE N UBLD) PH (test code = UPH) 5.5 4.5-8.0 A Protein (test code = NEGATIVE NEGATIVE N UPROT) Urobilinogen (test code 0.2 See_Comment N [Au tomated message] = U UROB) The system [employer] generated this result transmitted ref erence range: [...] code = 3+ None Seen,Trace A UBACT) [id number] 03:01:00 Test Item Value Reference Range Interpretation [...] ( 4 - SerumAlbumin)] EGFR if >60 Lithuanian (test code mL/min/1.73m\\ = EGFRAA) S\\2 EGFR if Non- >60 Estimate d Glomerular [place]ian (test code mL/min/1.73m\\ Filtrat ion Rate (eGFR) [...] and management of c hronic kidney failure. [id number] 03:01:00 Test Item Value Reference Range Interpretation Comments Lipase (test code = LIPA) 145 U/L 73-393 STAT LAB TEST, Serum [id number] 02:48:00 Test Item Value Reference Range Interpretation Comments (Serum) (test code = Negative PREGS) STAT LAB CBC WITH AUTO [id number] 02:28:00 Test Item Value Reference Range Interpretation [...] code = 0.1 mg/dl 0.0-1.1 IBIL) ER [id number] 02:59:00 Test Item Value Reference Range Interpretation Comments Lipase (test code = LIPA) 167 U/L 73-393 ER 16URINALYSIS WITH [id number] 02:48:00 Test Item Value Reference Range Interpretation Comments Color (test code = UCOLR) Yellow Clarity (test code = UCLAR) Clear Glucose (test code = UGLUC) NEGATIVE NEGATIVE N Bilirubin (test code = UBILI) NEGATIVE NEGATIVE N Ketones (test code = UKET) NEGATIVE NEGATIVE N Specific [place] (test code = >=1.030 1.005-1.030 A USPGR) [...] None Seen,Trace A ER 16CT ABDOMEN/PELVIS W/O [id number] 02:34:52ER 16 R/O KIDNEY STONE [facility] ([facility]/[place])Name: LAUREN BTEH : [id number] Sex: FPROCEDURE INFORMATION:Exam: CT Abdomen And Pelvis [...] By: HOLLIS FERRERADate: 08/06/2020 02:34STAT LAB CHEM [id number] 02:29:00 Test Item Value Reference Range Interpretation [...] L ER 16STAT LAB CBC WITH AUTO [id number] 02:29:00 Test Item Value Reference Range Interpretation [...] = IG%) 0.7 % 0.0-0.4 H ER [id number] 09:31:00 Test Item Value Reference Range Interpretation [...] IBIL) XR ABDOMEN 2 VIEWS FLAT / [id number] 09:22:50 [facility] ([facility])Name: LAUREN BETH : [id number] Sex: FProcedure: XR ABDOMEN 2 VIEWS FLAT / UPRIGHTOrder Date: 07/19/2020 8:40 AMOrdering Provider: REHAN COTTON .Clinical Indication: [id number]: Abdominal painComparison: July 05, 2020Findings:Postoperative change consisting [...] By: FARZAD DEWITTDate: 07/19/2020 09:17STAT LAB CHEM [id number] 09:10:00 Test Item Value Reference Range Interpretation [...] 0.6-1.3 L STAT LAB CBC WITH AUTO [id number] 09:09:00 Test Item Value Reference Range Interpretation [...] % 0.0-0.4 H STAT LAB URINALYSIS WITHOUT [id number] 09:08:00 Test Item Value Reference Range Interpretation Comments Color (test code = UCOLR) Yellow Lt. Yellow A Clarity (test code = UCLAR) Clear Glucose (test code = UGLUC) Negative Negative N Bilirubin (test code = UBILI) Negative Negative N Ketones (test code = UKET) Negative Negative N Specific [place] (test code = USPGR) >=1.030 1.005-1.030 A Blood (test code = UBLD) Negative Negative N PH (test code = UPH) 6.0 4.5-8.0 A Protein (test code = UPROT) Negative Negative N Urobilinogen (test code = U UROB) 0.2 >0.2 N Nitrite (test code = UNITR) Negative Negative N Leukocyte Esterase (test code = Negative Negative N ULEUK) CULTURE, [id number] 08:00:00Specimen: Urine SpecimensCollected: 07/05/2020 03:00 Status: Final Last Updated: 07/07/2020 08:00 CULTURE (Final) (Final) No Growth After 48 HoursXR ABDOMEN 1 VIEW (KUB)2020-07-05 04:07:04 [facility] ([facility])Name: LAUREN BETH : [id number] Sex: FPROCEDURE INFORMATION:Exam: XR Abdomen, 1 ViewExam [...] By: OSKAR CRANE: 07/05/2020 04:06STAT LAB , [id number] 03:54:00 Test Item Value Reference Range Interpretation Comments (Urine) (test code = Negative PREGU) STAT LAB CHEM [id number] 03:53:00 Test Item Value Reference Range Interpretation [...] 0.6-1.3 L STAT LAB CBC WITH AUTO [id number] 03:51:00 Test Item Value Reference Range Interpretation [...] = IG%) 0.4 % 0.0-0.4 URINALYSIS WITH [id number] 03:33:00 Test Item Value Reference Range Interpretation Comments Color (test code = UCOLR) Yellow Clarity (test code = UCLAR) Clear Glucose (test code = UGLUC) NEGATIVE NEGATIVE N Bilirubin (test code = UBILI) Small NEGATIVE A Ketones (test code = UKET) TRACE NEGATIVE A Specific [place] (test code = USPGR) 1.020 1.005-1.030 A [...] UBACT) Trace None Seen,Trace N CT ABDOMEN/PELVIS W/[id number] 16:44:35 [facility] ([facility]/[place])Name: LAUREN BETH : [id number] Sex: FProcedure: CT ABDOMEN/PELVIS W/CONTRASTOrder date: 06/07/2020 3:47 PMOrdering Provider: REHAN VANG LALITAALLIVinnyinical Indication: [id number]: Left flank painComparison: 06/07/20Technique: Multiple axial helical [...] PMDictated By: WILEY VELÁZQUEZDate: 06/07/2020 16:38URINALYSIS WITH [id number] 15:22:00 Test Item Value Reference Range Interpretation Comments Color (test code = UCOLR) Yellow Clarity (test code = UCLAR) Clear Glucose (test code = UGLUC) NEGATIVE NEGATIVE N Bilirubin (test code = UBILI) NEGATIVE NEGATIVE N Ketones (test code = UKET) NEGATIVE NEGATIVE N Specific [place] (test code = USPGR) 1.020 1.005-1.030 A [...] Trace None Seen,Trace N STAT LAB CHEM [id number] 15:10:00 Test Item Value Reference Range Interpretation [...] 0.6-1.3 L STAT LAB CBC WITH AUTO [id number] 15:08:00 Test Item Value Reference Range Interpretation [...] ABD/ PELVIS W/O CON (RENAL STONE)2020-06-07 14:56:05 [facility] ([facility]/)Name: LAUREN BETH : [id number] Sex: FProcedure: CT ABD/ PELVIS W/O CON (RENAL STONE)Order date: 06/07/2020 2:18 PMOrdering Provider: REHAN Farrellinical Indication: [id number]: Left flank painComparison: 05/31/20TECHNIQUE: Using a helical [...] By: WILEY VELÁZQUEZDate: 06/07/2020 14:49CT ABDOMEN/PELVIS W/O [id number] 12:27:07NPO 4 hours. Do not withhold meds hyst [facility] ([facility]Name: LAUREN BETH : [id number] Sex: FProcedure: CT ABDOMEN/PELVIS W/O CONTRASTOrder Date: 05/31/2020 10:25 AMOrdering Provider: ME ANN MARIE Guamaninical Indication: [id number]: Pain radiating to right flankComparison: March 20, [...] 116 U/L 73-393 STAT LAB URINALYSIS WITHOUT [id number] 10:59:00 Test Item Value Reference Range Interpretation Comments Color (test code = UCOLR) Light yellow Lt. Yellow A Clarity (test code = UCLAR) Clear Glucose (test code = UGLUC) Negative Negative N Bilirubin (test code = UBILI) Negative Negative N Ketones (test code = UKET) Negative Negative N Specific [place] (test code = 1.025 1.005-1.030 A USPGR) Blood (test code = UBLD) Negative Negative N PH (test code = UPH) 6.0 4.5-8.0 A Protein (test code = UPROT) Negative Negative N Urobilinogen (test code = U 0.2 >0.2 N UROB) Nitrite (test code = UNITR) Negative Negative N Leukocyte Esterase (test code = Negative Negative N ULEUK) STAT LAB CBC WITH AUTO [id number] 10:58:00 Test Item Value Reference Range Interpretation [...] 0.5 % 0.0-0.4 H STAT LAB CHEM [id number] 10:53:00 Test Item Value Reference Range Interpretation [...] L XR ABDOMEN 1 VIEW (KUB)2020-04-25 21:02:16 [facility] ([facility])Name: LAUREN BETH : [id number] Sex: FPROCEDURE INFORMATION:Exam: XR Abdomen, 1 ViewExam [...] Apr 20209:02 PM CDT. Dictated By: TEJAS RODRIGUEZDate: 04/25/2020 21:02URINALYSIS WITH MICROSCOPIC 2020-04-25 18:57:00 Test Item Value Reference Range Interpretation Comments Color (test code = UCOLR) Yellow Lt. Yellow A Clarity (test code = UCLAR) Clear Glucose (test code = UGLUC) Negative Negative N Bilirubin (test code = UBILI) Negative Negative N Ketones (test code = UKET) Negative Negative N Specific [place] (test code = 1.020 1.005-1.030 A USPGR) [...] Seen,Trace A STAT LAB CBC WITH AUTO [id number] 18:55:00 Test Item Value Reference Range Interpretation [...] of Platel et clumping was entered by [id number] on 04/25/2020 18:5 5 STAT LAB CHEM [id number] 18:17:00 Test Item Value Reference Range Interpretation [...] CREA) 0.4 mg/dl 0.6-1.3 L CULTURE, ANAEROBE [id number] 15:20:00FIRST DRAW = 1 aerobic and 1 anerobic CultureSpecimen: BloodCollected: 03/20/2020 18:30 Status: Final Last Updated: 03/26/2020 15:19 (1) FIRST DRAW = 1 aerobic and 1 anerobic Culture CULTURE (Final) (Final) No Growth After 5 DaysCULTURE, [id number] 15:20:00FIRST DRAW = 1 aerobic and 1 anerobic CultureSpecimen: BloodCollected: 03/20/2020 18:30 Status: Final Last Updated: 03/26/2020 15:19 (1) FIRST DRAW = 1 aerobic and 1 anerobic Culture CULTURE (Final) (Final) No Growth After 5 DaysCT ABDOMEN/PELVIS W/[id number] 21:46:442 weeks s/p adhesolysis. Vomiting/pain/fever. Please do CT with PO and IV contrastProcedures: CT ABDOMEN/PELVIS W/CONTRASTExam Date: 03/20/2020 6:04 PMOrdering Physician: REHAN TAJ SANDERSClinical Indication: [id number]: Abdominal painComparison: CT abdomen/pelvis, 02/25/20TECHNIQUE: Spiral multislice [...] Elmer Juárez MD03/20/2020 9:40 PMDictated By: ELMER PHAMDate:03/20/2020 21:40HEPATIC FUNCTION PANEL (LIVER) 2020-03-20 19:24:00 Test [...] (test code = 0.3 mg/dl 0.0-1.1 IBIL) [id number] 19:24:00 Test Item Value Reference Range Interpretation Comments Lipase (test code = LIPA) 69 U/L 73-393 L [id number] 19:24:00 Test Item Value Reference Range Interpretation Comments Magnesium (test code = MG) 2.0 mg/dl 1.6-2.6 STAT LAB CHEM [id number] 18:43:00 Test Item Value Reference Range Interpretation [...] 0.5 mg/dl 0.6-1.3 L STAT LAB LACTIC [id number] 18:42:00 Test Item Value Reference Range Interpretation Comments LACTATE (test code = 2.50 mmol/l 0.90-1.70 HH R&RB sy rene hassan rn LAC) @1842 STAT LAB CBC WITH AUTO [id number] 18:41:00 Test Item Value Reference Range Interpretation [...] PLMNT MIDLINE NO PORT > 5 y/o [id number] 13:21:10Procedure: SP PERC PLMNT MIDLINE NO PORT [...] secured to the skin in the usual fashion.Truck Service Manager images were recorded and stored in the [...] lection of specimen. XR ABD SERIES W/PA [id number] 17:33:07Procedure: XR ABD SERIES W/PA CXROrder Date: [...] BENITEZKDate: 03/13/2020 17:26STAT LAB CBC WITH AUTO [id number] 17:23:00 Test Item Value Reference Range Interpretation [...] entered by [id number] on 03/13/2020 17:23 [id number] 17:23:00 Test Item Value Reference Range Interpretation [...] = 0.4 mg/dl 0.0-1.1 IBIL) URINALYSIS WITH [id number] 16:54:00 Test Item Value Reference Range Interpretation Comments Color (test code = UCOLR) Yellow Lt. Yellow A Clarity (test code = UCLAR) Clear Glucose (test code = UGLUC) Negative Negative N Bilirubin (test code = UBILI) Negative Negative N Ketones (test code = UKET) Negative Negative N Specific [place] (test code = >=1.030 1.005-1.030 A USPGR) [...] 4+ None Seen,Trace A STAT LAB CHEM [id number] 16:37:00 Test Item Value Reference Range Interpretation [...] PLMNT MIDLINE NO PORT > 5 y/o [id number] 12:23:44Procedure: SP PERC PLMNT MIDLINE NO PORT [...] recommend recol lection of specimen. PT AND [id number] 11:51:00 Test Item Value Reference Range Interpretation Comments Protime (test code 9.8 seconds 9.5-12.1 = PT) INR (test code = 0.9 0.9-1.1 INR results are intended INR) ONLY to monitor Oral Anticoagulant t herapy in stablized patie nts. The INR Therapeutic Range is 2.0 - 3.0 Patie nts with a mechanical he art, the INR Range is 2. 5 - 3.5 [id number] 11:51:00 Test Item Value Reference Range Interpretation [...] BE NOTED ON THE RE PORT. CULTURE, [id number] 08:08:00Specimen: Urine RandomCollected: 02/25/2020 11:27 Status: Final Last Updated: 02/27/2020 08:08 CULTURE (Final) (Final) No Growth After 48 [id number] 05:38:00 Test Item Value Reference Range Interpretation [...] 0.5-1.3 code = CREA) EGFR if >60 Lithuanian (test code mL/min/1.73m\\ = EGFRAA) S\\2 EGFR if Non- >60 Estimate d Glomerular [place] (test code mL/min/1.73m\\ Filtrat ion Rate (eGFR) [...] 0.04 mIU/L 0.35-3.74 L CBC WITH AUTO [id number] 05:18:00 Test Item Value Reference Range Interpretation [...] recommend recol lection of specimen. URINALYSIS WITH [id number] 12:56:00 Test Item Value Reference Range Interpretation Comments Color (test code = UCOLR) Yellow Lt. Yellow A Clarity (test code = UCLAR) Slightly Cloudy Glucose (test code = UGLUC) Negative Negative N Bilirubin (test code = UBILI) Negative Negative N Ketones (test code = UKET) Negative Negative N Specific [place] (test code = >=1.030 1.005-1.030 A USPGR) [...] code = UBACT) Trace None Seen,Trace N [id number] 12:52:00 Test Item Value Reference Range Interpretation [...] = 0.3 mg/dl 0.0-1.1 IBIL) CT ABDOMEN/PELVIS W/[id number] 12:42:41NPO 4 hours. Do not withhold meds [...] WILEY VELÁZQUEZDate: 02/25/2020 12:36 STAT LAB CHEM [id number] 12:07:00 Test Item Value Reference Range Interpretation [...] 0.6-1.3 L STAT LAB CBC WITH AUTO [id number] 12:05:00 Test Item Value Reference Range Interpretation [...] % 0.0-0.4 STAT LAB CBC WITH AUTO [id number] 03:15:00 Test Item Value Reference Range Interpretation [...] 0.6 % 0.0-0.4 H STAT LAB CHEM [id number] 02:55:00 Test Item Value Reference Range Interpretation [...] JORGE LUIS WHITEDate: 02/25/2020 02:45STAT LAB , [id number] 01:12:00 Test Item Value Reference Range Interpretation Comments (Urine) (test code = Negative PREGU) STAT LAB URINALYSIS WITHOUT [id number] 01:11:00 Test Item Value Reference Range Interpretation Comments Color (test code = UCOLR) Yellow Lt. Yellow A Clarity (test code = UCLAR) Clear Glucose (test code = UGLUC) Negative Negative N Bilirubin (test code = UBILI) Negative Negative N Ketones (test code = UKET) Negative Negative N Specific [place] (test code = USPGR) >=1.030 1.005-1.030 A [...] By: JORGE LUIS WHITEDate: 02/10/2020 05:31URINALYSIS WITH [id number] 05:10:00 Test Item Value Reference Range Interpretation Comments Color (test code = UCOLR) Yellow Lt. Yellow A Clarity (test code = UCLAR) Clear Glucose (test code = UGLUC) >=1000 Negative A Bilirubin (test code = UBILI) Negative Negative N Ketones (test code = UKET) Negative Negative N Specific [place] (test code = 1.015 1.005-1.030 A USPGR) [...] = UBACT) None Seen None Seen,Trace N [id number] 04:42:00 Test Item Value Reference Range Interpretation [...] 0.2 mg/dl 0.0-1.1 IBIL) STAT LAB CHEM [id number] 04:27:00 Test Item Value Reference Range Interpretation [...] CREA) 0.6 mg/dl 0.6-1.3 STAT LAB , [id number] 04:24:00 Test Item Value Reference Range Interpretation Comments (Urine) (test code = Negative PREGU) STAT LAB CBC WITH AUTO [id number] 04:22:00 Test Item Value Reference Range Interpretation [...] % 0.0-0.[address] L SPINE W/O [id number] 12:46:24Procedure: CT L SPINE W/O CONTRASTOrder date: 01/25/2020 11:46 AMOrdering Provider: DONALD Healyinical Indication: [id number]: Low back painComparison: NoneTechnique: Using a multislice [...] code = 0.3 mg/dl 0.0-1.1 IBIL) ER [id number] 05:49:00 Test Item Value Reference Range Interpretation Comments Lipase (test code = LIPA) 105 U/L 73-393 ER 7STAT LAB CHEM [id number] 05:06:00 Test Item Value Reference Range Interpretation [...] L ER 7STAT LAB CBC WITH AUTO [id number] 05:04:00 Test Item Value Reference Range Interpretation [...] code = IG%) 0.4 % 0.0-0.4 ER [id number] 02:23:00 Test Item Value Reference Range Interpretation [...] ( 4 - SerumAlbumin)] EGFR if >60 Lithuanian (test code mL/min/1.73m\\ = EGFRAA) S\\2 EGFR if Non- >60 Estimate d Glomerular [place]ian (test code mL/min/1.73m\\ Filtrat ion Rate (eGFR) [...] of c hronic kidney failure. URINALYSIS WITH [id number] 02:11:00 Test Item Value Reference Range Interpretation Comments Color (test code = UCOLR) Yellow Lt. Yellow A Clarity (test code = UCLAR) Clear Glucose (test code = UGLUC) Negative Negative N Bilirubin (test code = UBILI) Negative Negative N Ketones (test code = UKET) Trace Negative A Specific [place] (test code = USPGR) >=1.030 1.005-1.030 A [...] Seen,Trace A STAT LAB CBC WITH AUTO [id number] 02:03:00 Test Item Value Reference Range Interpretation [...] = IG%) 0.4 % 0.0-0.4 CT ABDOMEN/PELVIS [id number] 22:43:00NPO 4 hours. Do not withhold meds [...] 201910:42 PM CDT.Dictated By: JOSUÉ MCGHEEDate: 10/07/2019 22:[id number] 22:05:00 Test Item Value Reference Range Interpretation [...] 0.5-1.3 code = CREA) EGFR if >60 [place]ian (test code mL/min/1.73m\\ = EGFRAA) S\\2 EGFR if Non- >60 Estimate d Glomerular [place]ian (test code mL/min/1.73m\\ Filtrat ion Rate (eGFR) [...] management of c hronic kidney failure. AMYLASE, [id number] 22:05:00 Test Item Value Reference Range Interpretation Comments Amylase (test code = AMYL) 43 U/L 25-115 [id number] 22:05:00 Test Item Value Reference Range Interpretation Comments Lipase (test code = LIPA) 95 U/L 73-393 URINALYSIS WITH [id number] 21:49:00 Test Item Value Reference Range Interpretation Comments Color (test code = UCOLR) Yellow Lt. Yellow A Clarity (test code = UCLAR) Clear Glucose (test code = UGLUC) Negative Negative N Bilirubin (test code = UBILI) Negative Negative N Ketones (test code = UKET) 15 Negative A Specific [place] (test code = USPGR) >=1.030 1.005-1.030 A [...] Seen,Trace A STAT LAB CBC WITH AUTO [id number] 21:45:00 Test Item Value Reference Range Interpretation [...] IG%) 0.4 % 0.0-0.4 STAT LAB , [id number] 21:36:00 Test Item Value Reference Range Interpretation Comments (Urine) (test code = Negative PREGU) CT ABDOMEN/PELVIS W/O [id number] 03:56:36PROCEDURE INFORMATION:Exam: CT Abdomen And Pelvis Without [...] 3:56 AM CDT.Dictated By: AMY ORDOÑEZDate: 09/20/2019 03:[id number] 02:07:00 Test Item Value Reference Range Interpretation [...] ( 4 - SerumAlbumin)] EGFR if >60 [place]ian (test code mL/min/1.73m\\ = EGFRAA) S\\2 EGFR if Non- >60 Estimate d Glomerular [place] (test code mL/min/1.73m\\ Filtrat ion Rate (eGFR) [...] failure. XR ABDOMEN 2 VIEWS FLAT / [id number] 02:01:15PROCEDURE INFORMATION:Exam: XR Abdomen, 2 ViewsExam date [...] CDT.Dictated By: AMY ORDOÑEZDate: 09/20/2019 02:01URINALYSIS WITH [id number] 01:56:00 Test Item Value Reference Range Interpretation Comments Color (test code = UCOLR) Yellow Lt. Yellow A Clarity (test code = UCLAR) Clear Glucose (test code = UGLUC) >=1000 Negative A Bilirubin (test code = UBILI) Negative Negative N Ketones (test code = UKET) Trace Negative A Specific [place] (test code = USPGR) >=1.030 1.005-1.030 A [...] Seen,Trace A STAT LAB CBC WITH AUTO [id number] 01:38:00 Test Item Value Reference Range Interpretation [...] IG%) 0.5 % 0.0-0.[address] ABDOMEN/PELVIS W/[id number] 04:23:30PROCEDURE INFORMATION:Exam: CT Abdomen And Pelvis With [...] 20194:23 AM CDT.Dictated By: SETH MEDINADate: 08/17/2019 04:[id number] 03:34:00 Test Item Value Reference Range Interpretation Comments Lipase (test code = LIPA) 67 U/L 73-393 L [id number] 03:34:00 Test Item Value Reference Range Interpretation [...] ( 4 - SerumAlbumin)] EGFR if >60 [place]ian (test code mL/min/1.73m\\ = EGFRAA) S\\2 EGFR if Non- >60 Estimate d Glomerular [place] (test code mL/min/1.73m\\ Filtrat ion Rate (eGFR) [...] kidney failure. STAT LAB CBC WITH AUTO [id number] 03:19:00 Test Item Value Reference Range Interpretation [...] IG%) 0.7 % 0.0-0.4 H URINALYSIS WITH [id number] 03:10:00 Test Item Value Reference Range Interpretation Comments Color (test code = UCOLR) YELLOW Clarity (test code = UCLAR) CLEAR Glucose (test code = UGLUC) NEGATIVE NEGATIVE N Bilirubin (test code = UBILI) NEGATIVE NEGATIVE N Ketones (test code = UKET) NEGATIVE NEGATIVE N Specific [place] (test code = 1.025 1.005-1.030 A USPGR) [...] 1+ None Seen,Trace A STAT LAB , [id number] 03:03:00 Test Item Value Reference Range Interpretation Comments (Urine) (test code = Negative PREGU) ONLY AVAILABLE 8A-65LXBT5 [id number] 20:37:00 Test Item Value Reference Range Interpretation [...] code = CREA) 0.6 mg/dl 0.6-1.2 ED2 [id number] 20:28:00 Test Item Value Reference Range Interpretation [...] = MPV) 7.1 fL 8.0-11.0 A CULTURE, [id number] 08:44:30tat4Uqlyzzcg: Urine SpecimensCollected: 07/12/2019 15:00 Status: Final Last Updated: 2019 08:44 (1) err7 Culture Result (Final) (Final) Moderate Mixed Body Gabriela Isolated No Pathogens Isolated No Further Workup PerformedFL LIMITED [id number] 17:53:41Procedures: FL LIMITED IVPExam Date: 07/12/2019 3:21 PMOrdering Physician: REHAN COTTONClinical Indication: [id number]: Flank painComparison: CT abdomen/pelvis, 05/17/19Findings: Frontal radiographs [...] MD07/12/2019 5:47 PMDictated By: ELMER PHAMDate: 07/12/2019 17:[id number] 15:56:00 Test Item Value Reference Range Interpretation Comments Lipase (test code = LIPA) 97 U/L 73-393 [id number] FUNCTION PANEL (LIVER)2019-07-12 15:56:00 Test Item Value [...] (test code = 0.2 mg/dl 0.0-1.1 IBIL) [id number] WITH [id number] 15:51:00 Test Item Value Reference Range Interpretation Comments Color (test code = UCOLR) YELLOW Clarity (test code = UCLAR) CLEAR Glucose (test code = UGLUC) NEGATIVE NEGATIVE N Bilirubin (test code = UBILI) NEGATIVE NEGATIVE N Ketones (test code = UKET) NEGATIVE NEGATIVE N Specific [place] (test code = 1.020 1.005-1.030 A USPGR) [...] code = UBACT) 4+ None Seen,Trace A [id number] LAB CHEM [id number] 15:09:00 Test Item Value Reference Range Interpretation [...] (test code = CREA) 0.6 mg/dl 0.6-1.3 [id number] LAB CBC WITH AUTO [id number] 15:08:00 Test Item Value Reference Range Interpretation [...] = IG%) 0.4 % 0.0-0.4 err7CT ABDOMEN/PELVIS W/[id number] 16:33:46NPO 4 hours. Do not withhold medsProcedures: CT ABDOMEN/PELVIS W/CONTRASTExam Date: 05/17/2019 1:31 PMOrdering Physician: MERLE LYNNEClinical Indication: [id number]: Abdominal painComparison: CT abdomen/pelvis, 04/09/19TECHNIQUE: Spiral multislice [...] rep ort was electronically signed by Dr lEmer Juárez MD05/17/2019 4:27 PMDictated By: ELMER PHAMDate: 05/17/2019 16:[id number] 16:20:00 Test Item Value Reference Range Interpretation Comments Lipase (test code = LIPA) 70 U/L 73-393 L STAT LAB CHEM [id number] 15:24:00 Test Item Value Reference Range Interpretation [...] 0.5 mg/dl 0.6-1.3 L STAT LAB LACTIC [id number] 15:23:00 Test Item Value Reference Range Interpretation Comments LACTATE (test code = LAC) 1.39 mmol/l 0.90-1.70 STAT LAB CBC WITH AUTO [id number] 15:21:00 Test Item Value Reference Range Interpretation [...] IG%) 0.5 % 0.0-0.4 H URINALYSIS WITH [id number] 15:08:00 Test Item Value Reference Range Interpretation Comments Color (test code = UCOLR) YELLOW Clarity (test code = UCLAR) CLEAR Glucose (test code = UGLUC) NEGATIVE NEGATIVE N Bilirubin (test code = UBILI) NEGATIVE NEGATIVE N Ketones (test code = UKET) NEGATIVE NEGATIVE N Specific [place] (test code = 1.025 1.005-1.030 A USPGR) [...] None Seen,Trace A CT ANGIO HEAD W/WO [id number] 16:28:5720 g Cathlon Above the Antecubital or higher requiredProcedure: CT ANGIO HEAD W/WO CONTRASTOrder Date: 05/12/2019 3:30 PMOrdering Provider: REHAN Farrellinical Indication: [id number]: HeadacheComparison: NoneTechnique: Using a helical scanner, sequential axial imaging of the brain wasobtained before and after the administration of the contrast medium. At anindependent workstation, 3-D reconstructions of the [place] of [place] wereobtained.This examwas performed according to [...] By: FARZAD DEWITTDate: 05/12/2019 16:22 CT ABDOMEN/PELVIS W/[id number] 14:36:05NPO 4 hours. Do not withhold meds [...] By: GLORY BENITEZKDate: 04/09/2019 14:29CBC WITH AUTO [id number] 09:02:00 Test Item Value Reference Range Interpretation [...] % 0.0-0.4 H IG%) CBC WITH AUTO [id number] 09:14:00 Test Item Value Reference Range Interpretation [...] (test code = 0.4 % 0.0-0.4 IG%) [id number] 09:12:00 Test Item Value Reference Range Interpretation [...] 0.5-1.3 code = CREA) EGFR if >60 Lithuanian (test code mL/min/1.73m\\ = EGFRAA) S\\2 EGFR if Non- >60 Estimate d Glomerular Lithuanian (test code mL/min/1.73m\\ Filtrat ion Rate (eGFR) [...] PLMNT MIDLINE NO PORT > 5 y/o W/[id number] 16:11:23Procedure: SP PERC PLMNT MIDLINE NO PORT > 5 y/o W/IMAGINGOrder Date: 04/07/2019 3:23 PMOrdering Provider: LIZBETH Phan Indication: Vascular accessTechnique:The patient was placed supine [...] PMDictated By: WILEY VELÁZQUEZDate: 04/07/2019 16:05CT ABDOMEN/PELVIS W/[id number] 22:50:40PROCEDURE INFORMATION:Exam: CT Abdomen and pelvis with [...] 10:50 PM CDT.Dictated By: ELMER PHAMDate: 04/04/2019 22:[id number] 21:22:00 Test Item Value Reference Range Interpretation [...] 0.3 mg/dl 0.0-1.1 IBIL) STAT LAB CHEM [id number] 21:07:00 Test Item Value Reference Range Interpretation [...] 0.6 mg/dl 0.6-1.3 STAT LAB URINALYSIS WITHOUT [id number] 21:05:00 Test Item Value Reference Range Interpretation Comments Color (test code = UCOLR) Yellow Lt. Yellow A Clarity (test code = UCLAR) Slightly Cloudy Glucose (test code = UGLUC) 100 Negative A Bilirubin (test code = UBILI) Negative Negative N Ketones (test code = UKET) Negative Negative N Specific [place] (test code = >=1.030 1.005-1.030 A USPGR) Blood (test code = UBLD) Negative Negative N PH (test code = UPH) 5.5 4.5-8.0 A Protein (test code = UPROT) Negative Negative N Urobilinogen (test code = U 0.2 >0.2 N UROB) Nitrite (test code = UNITR) Negative Negative N Leukocyte Esterase (test code Negative Negative N = ULEUK) STAT LAB CBC WITH AUTO [id number] 21:04:00 Test Item Value Reference Range Interpretation [...] 0.5 % 0.0-0.4 H STAT LAB , [id number] 21:04:00 Test Item Value Reference Range Interpretation Comments (Urine) (test code = Negative PREGU) ONLY AVAILABLE 8A-08PSMD4 [id number] 16:05:00 Test Item Value Reference Range Interpretation Comments Sodium (test code = CANCELED mmol/l The r eleased value NA) 141 was cancele d by [id number] on 04/04/2019 16:0 5 Potassium (test code CANCELED mmol/l The released value = K) 3.9 was cancele d by [id number] on 04/04/2019 16:0 5 CO2 (test code = CANCELED mmol/l The rele ased value CO2) 23 was canceled by [id number] on 04/04/2019 16:0 5 Chloride (test code CANCELED mmol/l The r eleased value = CL) 108 was cancele d by [id number] on 04/04/2019 16:0 5 Glucose (test code = CANCELED mg/dl The r eleased value GLU) 96 was canceled by [id number] on 04/04/2019 16:0 5 Calcium (test code = CANCELED mg/dl The r eleased value CALC) 8.8 was cancele d by [id number] on 04/04/2019 16:0 5 BUN (test code = CANCELED mg/dl The relea sed value BUN) 11 was canceled by [id number] on 04/04/2019 16:0 5 Creatinine (test CANCELED mg/dl code = CREA) HISTOLOGY [id number] 11:08:00 [address], [place] [address]Ztlkv: [phone] MSFL #: [id number] MedicalDirector: Seth Valdez M.D.Surgical Pathology Consultation ReportPatient Name: LAUERN BETH Case #: [id number] Med. Rec. #:[id number] [id number] Date: 03/21/2019 : 1985(Age:33) Received: 03/23/2019 Gender: F Copy to : Reported:03/23/2019 Physician(s): Lizbeth Wolfe Specimen(s) ReceivedA: Right ovary Final Pathologic DiagnosisRight ovary and fallopian tube, right salpingo-oophorectomy:- fibrovascular adhesions of ovary and fallopian tube. - numerous follicular cysts, benign serous cysts, and corpusalbicanswithin ovarian parenchyma. Electronically Signed Out /03/23/2019 Seth Vadlez MD, Board Certified in Anatomic Pathology Clinical [...] greatest dimension. The cystsarefilled with clearserous fluid. Truck Service Manager sections of the ovaryandpossible fallopian tube are submitted in cassettes A1-A8. /03/23/2019 Seth Vadlez MD, Board Certified in Anatomic Pathology Microscopic Descriptio nMicroscopic examination of the right ovary reveals fibrovascularadhesionsalong the surface of the ovary as well as along the accompanyingfallopiantube. The ovarian parenchyma contains follicular cysts, benign serouscyst,as well as numerous corpus albicans. No areas of endometriosis areseen. Billing Fee Code(s): A; 10233- US TRANSVAGINAL W/[id number] 16:45:00 Patient Name: ADELIA BETH Unit No: [id number] EXAMS: CPT CODE: [id number] US TRANSVAGINAL W/PELVIS 72573 CLINICAL HISTORY: Right lower quadrant pain. Status post appendectomy. History of ovarian cyst.Real-time ultrasound examination of the pelvis was performed [...] is identified in the right ovary. at 1642 Reported and signed by: Mario Guidry MD CC: Hilaria Calderón MD Technologist: Dipesh Miranda RDMS, T Probe: [id number] Trnscrbd D/ (9125) Ro Orig Print D/T: S: 03/10/2019 (0540) [facility] NAME: ADELIA BETH Radiology Department PHYS: GUTAL.01 - Hilaria Calderón [address] : 1985 AGE: 33 SEX: F [place], [place] [address] LOC: DayanaraERS PHONE #: [phone] EXAM DATE: 03/10/2019 STATUS: REG ER FAX #: [phone] RAD NO: Page 1 Signed Report Patient Name: ADELIA BETH Unit No: [id number] EXAMS: CPT CODE: [id number] US TRANSVAGINAL W/PELVIS 08014 <Continued> [facility] NAME: ADELIA BETH Radiology Department PHYS: Hialria Calderón [address] : 1985 AGE: 33 SEX: F [place] [address] LOC: ALONDRA PHONE #: [phone] EXAM DATE: 03/10/2019 STATUS: REG ER FAX #: [phone] RAD NO: Page 2 Signed Report- US TRANSVAGINAL W/[id number] 16:45:00 Patient Name: LARUEN BETH Unit No: [id number] EXAMS: CPT CODE: [id number] US TRANSVAGINAL W/PELVIS 45967 CLINICAL HISTORY: Right lower quadrant pain. Status [...] in the right ovary. at 1645 Reported andsigned by: Mario Guidry MD CC: Hilaria Calderón MD Technologist: Dipesh Miranda RDMS, T Probe: [id number] Trnscrbd D/ (1645) Ro Orig Print D/T: S: 03/10/2019 (1648) [facility] NAME: LAUREN BETH Radiology Department PHYS: GUTAL. - Hilaria Calderón [address] : 1985 AGE: 33 SEX: F [place], [place] [address] LOC: DayanaraERS PHONE #: [phone] EXAM DATE: 03/10/2019 STATUS: DEP ER FAX #: [phone] RAD NO: [id number] Page 1 Signed Report Patient Name: LAUREN BETH Unit No: [id number] EXAMS: CPT CODE: [id number] US TRANSVAGINAL W/PELVIS 21602 (Continued) [facility] NAME: LAUREN BETH Radiology DepartmentPHYS: GUTCONCHIS. - Hilaria Calderón [address] : 1985 AGE: 33 SEX: F [place] [address] LOC: DayanaraERS PHONE #: [phone] EXAM DATE: 03/10/2019 STATUS: DEP ER FAX #: [phone] RAD NO: [id number] Page 2 Signed Report- US PELVIS [id number] 16:45:00 Patient Name: ADELIA BETH Unit No: [id number] EXAMS: CPT CODE: [id number] US PELVIS COMPLETE 84982 CLINICAL HISTORY: Right lower quadrant pain. Status [...] above. Blood flow is identified in the rightovary. at 1645 Reported and signed by: Mario Guidry MD CC: Hilaria Calderón MD Technologist: Dipesh Miranda RDMS, RVT Probe: Trnscrbd D/ (7152) t.MICAELAR.YOS Orig Print D/T: S: 03/10/2019 (8851) [facility] NAME: ADELIA BETH Radiology Department [facility]YS: [facility] [address] : 1985 AGE: 33 SEX: F [place] [address] LOC: DayanaraERS PHONE #: [phone] EXAM DATE: 0 03/10/2019 STATUS: REG ER FAX #: [phone] RAD NO: Page 1 Signed Report Patient Name: Wendy BETH No: [id number] EXAMS: CPT CODE: [id number] US PELVIS COMPLETE 88196 <Continued> [facility] NAME: ADELIA BETH Radiology Department PHYS: SUEKal - Hilaria Calderón [address] : 1985 AGE: 33 SEX: F [place] [address] LOC: DayanaraERS PHONE #: [phone] EXAM DATE: 03/10/2019 STATUS: REG ER FAX #: [phone] RAD NO: Page 2 Signed Report- US PELVIS [id number] 16:45:00 Patient Name: LAUREN BETH Unit No: [id number] EXAMS: CPT CODE: [id number] US PELVIS COMPLETE 59448 CLINICAL HISTORY: Right lower quadrant pain. Status [...] is identified in the right ovary. at 1647 Reported and signed by: Mario Guidry MD CC: Hliaria Calderón MD Technologist: Dipesh Miranda RDMS, RVT Probe: Trnscrbd D/ (1615) t.SDR.YOS Orig Print D/T: S: 03/10/2019 (9611) [facility] NAME: LAUREN BETH Zoltan Radiology Department PHYS[facility] Hilaria Calderón [address] : 1985 AGE: 33 SEX: F [place] [address] LOC: ALONDRA PHONE #: [phone] EXAM DATE: 03/10/2019 STATUS: [facility] FAX #: [phone] RAD NO: [id number] Page 1 Signed Report Patient Name: LAUREN BETH Unit No: [id number] EXAMS: CPT CODE: [id number] US PELVIS COMPLETE 59066 (Continued) [facility] NAME: LAUREN BETH Radiology Department PHYS: SUE. - Hilaria Calderón [address] : 1985 AGE: 33 SEX: F [place] [address] : F.[place] PHONE #: [phone] EXAM DATE: 03/10/2019 STATUS: NHI ER FAX #: [phone] [facility] NO: [id number] Page 2 Signed ReportCBC W/AUTO DIFF 2019-03-10 [...] = PLTMR) UA RFLX MICR CULT IF [id number] 16:07:00 Test Item Value Reference Range Interpretation [...] A Indication for culture: Suprapubic PainUR HCG [id number] 16:07:00 Test Item Value Reference Range Interpretation [...] culture: Suprapubic PainUA RFLX MICR CULT IF [id number] 16:04:00 Test Item Value Reference Range Interpretation [...] EPIU) Indication for culture: Suprapubic PainUR HCG [id number] 16:04:00 Test Item Value Reference Range Interpretation [...] culture: Suprapubic PainUA RFLX MICR CULT IF [id number] 15:55:00 Test Item Value Reference Range Interpretation [...] RARE-FEW Indication for culture: Suprapubic PainUR HCG [id number] 15:55:00 Test Item Value Reference Range Interpretation [...] and tested. Indication for culture: Suprapubic PainED2 [id number] 01:18:00 Test Item Value Reference Range Interpretation [...] MPV) 6.9 fL 8.0-11.0 A ED2 URINE [id number] 00:55:00 Test Item Value Reference Range Interpretation Comments Color (test code = UCOLR) Yellow Lt. Yellow A Clarity (test code = UCLAR) Clear Glucose (test code = UGLUC) NEGATIVE NEGATIVE N Bilirubin (test code = UBILI) NEGATIVE NEGATIVE N Ketones (test code = UKET) NEGATIVE NEGATIVE N Specific [place] (test code = USPGR) 1.030 1.005-1.030 A Blood (test code = UBLD) NEGATIVE NEGATIVE N PH (test code = UPH) 6.0 4.5-8.0 A Protein (test code = UPROT) Trace NEGATIVE A Urobilinogen (test code = U UROB) 0.2 >0.2 N Nitrite (test code = UNITR) NEGATIVE NEGATIVE N Leukocyte Esterase (test code = NEGATIVE NEGATIVE N ULEUK) ED2 , [id number] 00:54:00 Test Item Value Reference Range Interpretation Comments (Urine) (test code = Negative PREGU) [id number] 13:07:00 Test Item Value Reference Range Interpretation Comments Lipase (test code = LIPA) 106 U/L 73-[address] ABDOMEN/PELVIS W/[id number] 12:24:12Procedures: ED2 CT ABDOMEN/PELVIS W/CONTRASTExam Date: 02/07/2019 10:11 AMOrdering Physician: WYATT Downsinical Indication: [id number]: Epigastric painComparison: CT abdomen/pelvis, 01/27/19TECHNIQUE: Spiral multislice [...] 12:17 PMDictated By: ELMER PHAMDate: 02/07/2019 12:17ED2 [id number] 10:48:00 Test Item Value Reference Range Interpretation [...] = TP) 7.6 gm/dl 6.4-8.1 ED2 URINE [id number] 10:45:00 Test Item Value Reference Range Interpretation Comments Color (test code = UCOLR) Yellow Lt. Yellow A Clarity (test code = UCLAR) Sl Cloudy Glucose (test code = UGLUC) NEGATIVE NEGATIVE N Bilirubin (test code = UBILI) NEGATIVE NEGATIVE N Ketones (test code = UKET) NEGATIVE NEGATIVE N Specific [place] (test code = 1.025 1.005-1.030 A USPGR) Blood (test code = UBLD) NEGATIVE NEGATIVE N PH (test code = UPH) 5.5 4.5-8.0 A Protein (test code = UPROT) NEGATIVE NEGATIVE N Urobilinogen (test code = U UROB) 0.2 >0.2 N Nitrite (test code = UNITR) NEGATIVE NEGATIVE N Leukocyte Esterase (test code = NEGATIVE NEGATIVE N ULEUK) ED2 , [id number] 10:45:00 Test Item Value Reference Range Interpretation Comments (Urine) (test code = Negative PREGU) ED2 [id number] 10:44:00 Test Item Value Reference Range Interpretation [...] MPV) 6.8 fL 8.0-11.[address] ABDOMEN/PELVIS W/[id number] 12:29:19s/p hysterectomy; rlq pain Procedure: CT ABDOMEN/PELVIS W/CONTRASTOrder Date: 01/27/2019 10:57 AMOrdering Provider: DR LEXUS CASTREJON ACOSTAClinical Indication: [id number]: Abdominal painComparison: September 30, 2018TECHNIQUE:The abdomen and [...] code = UKET) NEGATIVE NEGATIVE N Specific [place] (test code = USPGR) <=1.005 1.005-1.030 A [...] code = UBACT) Trace None Seen,Trace N [id number] 11:49:00 Test Item Value Reference Range Interpretation Comments Lipase (test code = LIPA) 91 U/L 73-393 AMYLASE, [id number] 11:49:00 Test Item Value Reference Range Interpretation Comments Amylase (test code = AMYL) 45 U/L 25-115 STAT LAB CHEM [id number] 11:25:00 Test Item Value Reference Range Interpretation [...] 0.6-1.3 L STAT LAB CBC WITH AUTO [id number] 11:23:00 Test Item Value Reference Range Interpretation [...] IG%) 0.6 % 0.0-0.4 H US PELVIS [id number] 07:55:25h/o complex right ovarian cystsProcedure: Pelvic ultrasound.CLINICAL [...] 0.1 mg/dl 0.0-1.1 IBIL) STAT LAB CHEM [id number] 02:41:00 Test Item Value Reference Range Interpretation [...] 0.6-1.3 L STAT LAB CBC WITH AUTO [id number] 02:39:00 Test Item Value Reference Range Interpretation [...] IG%) 0.5 % 0.0-0.4 H URINALYSIS WITH [id number] 02:37:00 Test Item Value Reference Range Interpretation Comments Color (test code = UCOLR) YELLOW Clarity (test code = UCLAR) CLEAR Glucose (test code = UGLUC) 500 NEGATIVE A Bilirubin (test code = UBILI) NEGATIVE NEGATIVE N Ketones (test code = UKET) TRACE NEGATIVE A Specific [place] (test code = USPGR) >=1.030 1.005-1.030 A [...] = UBACT) 2+ None Seen,Trace A CULTURE, [id number] 07:39:00CULTURE RIGHT ABDOMEN WOUND CARE DEPT Specimen: [...] 09/30/2018 8:28 PMOrdering Provider: DIMAS Haskinsinical Indication: [id number]: Acute chest painComparison: May 13, 2017Findings:Cardiac size [...] By: FARZAD DEWITTDate: 10/01/2018 05:08CT ABDOMEN/PELVIS W/O [id number] 00:42:26NPO 4 hours. Do not withhold medsEXAM:CT [...] 0.5 mg/dl 0.0-1.1 IBIL) STAT LAB CHEM [id number] 21:10:00 Test Item Value Reference Range Interpretation [...] 0.6-1.3 L STAT LAB CBC WITH AUTO [id number] 21:09:00 Test Item Value Reference Range Interpretation [...] = IG%) 0.3 % 0.0-0.4 OVARY W/WO TUBE,[id number] 12:44:00 RUN DATE: 09/04/18 [facility] PAGE 1 RUN TIME: 1454 Specimen Inquiry RUN USER: INTERFACE --PATIENT: LAUREN BETH [facility] #: [id number] [facility] #: [id number] AGE/SX: 33/F ROOM: [facility] RE09/02/18REG DR: Elmer Flores : [birth year] BED: A DIS: 09/03/18 STATUS: DIS [place] TLOC: SPEC #: [id number] RECD: 09/02/18 STATUS: KWAME RE #: [id number] MELISSA: 09/02/18- SUBM DR: Elmer Flores III ENTERED: 09/03/18 SP TYPE: MUSA PELAYO DR: ORDERED: LEVEL IV CODES: [id number] - OVARY, NOS PROCEDURES: LEVEL IV (Incomplete) TISSUES: OVARY, NOS - RIGHT OVARIAN CYST CLINICAL HISTORY 33 year old, acute pelvic pain (wpd) FINAL DIAGNOSIS Right ovarian cyst, excision: - benign simple cyst of ovary Tissue code 1 CPT code(s): 19654 [facility] 09/04/18 GROSS DESCRIPTION ANATOMIC SOURCE OF [...] with multiple yellow-orange, centrally hemorrhagic corpora lutea. 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 telma/bere 09/03/18 @ 1343 Signed Amaris Wharton MD 09/04/18 1244 END OF REPORT CBC W/AUTO [id number] 03:10:00 Test Item Value Reference Range Interpretation [...] NORMAL NORMAL code = PLTMR) CHEMISTRY 7 [id number] 14:15:00 Test Item Value Reference Range Interpretation [...] CA) 9.2 mg/dL 8.4-10.2 N CBC W/AUTO [id number] 13:42:00 Test Item Value Reference Range Interpretation [...] NORMAL NORMAL code = PLTMR) US INTRAVAGINAL [id number] 12:35:09Procedure: Pelvic ultrasound.CLINICAL INDICATION: Pelvic pain. Status [...] VELÁZQUEZDate: 09/01/2018 12:28STAT LAB CBC WITH AUTO [id number] 11:31:00 Test Item Value Reference Range Interpretation [...] 09/01/2018 11:31 ONLY AVAILABLE 8A-12MNCT ABDOMEN/PELVIS W/O [id number] 11:11:01MLP C Procedure: CT ABDOMEN/PELVIS W/O CONTRASTOrder Date: 09/01/2018 9:28 AMOrdering Provider: CHIN LORENZANAClinical Indication: [id number]: Abdominal pain. Left lower quadrant painComparison: 12/24/2017TECHNIQUE:CT [...] by Dr Silver Benitez MD 09/01/201811:04 AMDictatedBy: Maggie BENITEZte: 09/01/2018 11:04STAT LAB CHEM [id number] 10:26:00 Test Item Value Reference Range Interpretation [...] L ONLY AVAILABLE 8A-12MNSTAT LAB URINALYSIS WITHOUT [id number] 09:59:00 Test Item Value Reference Range Interpretation Comments Color (test code = UCOLR) Yellow Lt. Yellow A Clarity (test code = UCLAR) Clear Glucose (test code = UGLUC) NEGATIVE Negative A Bilirubin (test code = UBILI) NEGATIVE Negative A Ketones (test code = UKET) NEGATIVE Negative A Specific [place] (test code = USPGR) 1.015 1.005-1.030 A Blood (test code = UBLD) NEGATIVE Negative A PH (test code = UPH) 7.0 4.5-8.0 A Protein (test code = UPROT) NEGATIVE Negative A Urobilinogen (test code = U UROB) 0.2 >0.2 N Nitrite (test code = UNITR) NEGATIVE Negative A Leukocyte Esterase (test code = NEGATIVE Negative A ULEUK) ONLY AVAILABLE 8A-12MNUS INTRAVAGINAL [id number] 13:26:23Procedure: Pelvic ultrasound.CLINICAL INDICATION: PELVIC PAIN: Pain-Pelvic. [...] VELÁZQUEZDate: 05/13/2018 13:20STAT LAB CBC WITH AUTO [id number] 12:22:00 Test Item Value Reference Range Interpretation [...] 0.0-0.4 IG%) STAT LAB CBC WITH AUTO [id number] 11:54:00 Test Item Value Reference Range Interpretation [...] 0.5 % 0.0-0.4 H IG%) ONLY AVAILABLE 8A12[facility] URINALYSIS WITHOUT [id number] 11:25:00 Test Item Value Reference Range Interpretation Comments Color (test code = UCOLR) Yellow Lt. Yellow A Clarity (test code = UCLAR) Clear Glucose (test code = UGLUC) NEGATIVE Negative A Bilirubin (test code = UBILI) NEGATIVE Negative A Ketones (test code = UKET) NEGATIVE Negative A Specific [place] (test code = USPGR) 1.020 1.005-1.030 A Blood (test code = UBLD) NEGATIVE Negative A PH (test code = UPH) 7.0 4.5-8.0 A Protein (test code = UPROT) NEGATIVE Negative A Urobilinogen (test code = U UROB) 0.2 >0.2 N Nitrite (test code = UNITR) NEGATIVE Negative A Leukocyte Esterase (test code = NEGATIVE Negative A ULEUK) ONLY AVAILABLE [address] [place] [address] LAB , [id number] 11:25:00 Test Item Value Reference Range Interpretation Comments (Urine) (test code = Negative PREGU) ONLY AVAILABLE [address] [place] [address] LAB CHEM [id number] 11:23:00 Test Item Value Reference Range Interpretation [...] mg/dl 0.6-1.3 L ONLY AVAILABLE 8A-12MNUS INTRAVAGINAL [id number] 12:50:53Procedure: Pelvic ultrasound.CLINICAL INDICATION: Right adnexal mass. [...] PMDictated By: WILEY VELÁZQUEZDate: 12/24/2017 12:50URINALYSIS WITH [id number] 10:22:00 Test Item Value Reference Range Interpretation Comments Color (test code = UCOLR) Yellow Clarity (test code = UCLAR) Clear Glucose (test code = UGLUC) NEGATIVE NEGATIVE N Bilirubin (test code = UBILI) NEGATIVE NEGATIVE N Ketones (test code = UKET) NEGATIVE NEGATIVE N Specific [place] (test code = USPGR) 1.025 1.005-1.030 A [...] = UBACT) Trace None Seen,Trace N LIPASE, [id number] 10:05:00 Test Item Value Reference Range Interpretation Comments Lipase (test code = LIPA) 40 U/L 8-223 [id number] 10:05:00 Test Item Value Reference Range Interpretation [...] ( 4 - SerumAlbumin)] EGFR if >60 Lithuanian (test code mL/min/1.73m\\ = EGFRAA) S\\2 EGFR if Non- >60 Estimate d Glomerular Lithuanian (test code mL/min/1.73m\\ Filtrat ion Rate (eGFR) [...] MD 12/24/20179:32 AMDictated By: WILEY VELÁZQUEZDate: 12/24/2017 09:38CBC WITH AUTO [id number] 09:26:00 Test Item Value Reference Range Interpretation [...] code = UKET) NEGATIVE NEGATIVE N Specific [place] (test code = 1.020 1.005-1.030 A USPGR) [...] UBACT) None Seen None Seen,Trace N er [id number] 03:07:00 Test Item Value Reference Range Interpretation [...] ( 4 - SerumAlbumin)] EGFR if >60 Lithuanian (test code mL/min/1.73m\\ = EGFRAA) S\\2 EGFR if Non- >60 Estimate d Glomerular [place]ian (test code mL/min/1.73m\\ Filtrat ion Rate (eGFR) [...] of c hronic kidney failure. er 16LIPASE, [id number] 03:07:00 Test Item Value Reference Range Interpretation Comments Lipase (test code = LIPA) 61 U/L 8-223 er 16CBC WITH AUTO [id number] 03:05:00 Test Item Value Reference Range Interpretation [...] 0.0-0.4 IG%) er 16XR CHEST 2 PA [id number] 19:56:04Procedure: XR CHEST 2 PA LATERALExam date: 05/13/2017 3:53 PMOrdering Provider: DR ASA BLOOMClinical Indication: fatigue, Chest painComparison: March 15, 2016Findings:Cardiomediastinal silhouette is within normal limits.The lungs are clear.No pleural effusion or pneumothorax. Osseous structures are nonacute.No evidence of active tuberculosis.Impression:No acute cardiopulmonary process.This final report was electronically signed by Dr Wiley Velázquez MD 05/13/20177:49 PMDictated By: WILEY VELÁZQUEZDate: 05/13/2017 19:[id number] 16:53:00 Test Item Value Reference Range Interpretation [...] ( 4 - SerumAlbumin)] EGFR if >60 Lithuanian (test code mL/min/1.73m\\ = EGFRAA) S\\2 EGFR if Non- >60 Estimate d Glomerular Lithuanian (test code mL/min/1.73m\\ Filtrat ion Rate (eGFR) [...] NOTED ON THE RE PORT. URINALYSIS WITH [id number] 18:25:00 Test Item Value Reference Range Interpretation Comments Color (test code = UCOLR) YELLOW Clarity (test code = UCLAR) CLEAR Glucose (test code = UGLUC) NEGATIVE NEGATIVE N Bilirubin (test code = UBILI) NEGATIVE NEGATIVE N Ketones (test code = UKET) NEGATIVE NEGATIVE N Specific [place] (test code = 1.025 1.005-1.030 A USPGR) [...] (test code = 0.1 mg/dl 0.0-1.1 IBIL) [id number] 18:21:00 Test Item Value Reference Range Interpretation [...] mg/dl 8.4-10.2 = CALC) EGFR if >60 Lithuanian (test code mL/min/1.73m\\ = EGFRAA) S\\2 EGFR if Non- >60 Estimate d Glomerular Lithuanian (test code mL/min/1.73m\\ Filtrat ion Rate (eGFR) [...] c hronic kidney failure. CBC WITH AUTO [id number] 18:04:00 Test Item Value Reference Range Interpretation [...]
[2022-03-19] MEDS ORDERED: PROMETHAZINE INJ 25 MG/ML AMP ONE ×2 (00:10→01:31)
[2022-03-19] MEDS ORDERED: MEPERIDINE HCL 50 MG/ML ONE (00:10)
[2022-03-19] MEDS ORDERED: NA CHLORIDE 0.9% 0 ML ONE (00:21)
[2022-03-19] MEDS ORDERED: NA CHLORIDE 0.9% 1,000 ML ONE (00:28)
[2022-03-19 00:41] LABS: Absolute Lymphocytes (CBC) 2.6 K/uL (0.7-4.9); Hematocrit 33.6 % (36.0-45.0); Lymphocytes % 32.9 % (15.3-44.8); MCV 87.5 fL (80-100); MPV 7.2 fL (7.6-11.3); RBC Red Blood Cell Count 3.84 M/uL (3.86-4.86)
[2022-03-19 00:50] LABS: Bilirubin Total 0.1 mg/dL (0.2-1.0); Potassium 3.6 mmol/L (3.5-5.1); Protein, Total 6.5 g/dL (6.4-8.2)
--- NOTE | 2022-03-19 00:59 | EDPHYS ---
Physician Documentation [facility] Name: Hong Pace Age: 36 yrs Sex: Female : 1985 Arrival Date: 03/18/2022 Time: 22:51 Bed 6 Private MD: JOAQUIN Physician Cole Disla HPI: 03/18 23:55 This 36 yrs old Female presents to ER via Ambulatory with complaints of Flank Pain. kb 23:55 The patient presents with abdominal pain that is diffuse. Onset: The symptoms/episode kb began/occurred at 21:30. The symptoms do not radiate. Associated signs and symptoms: Pertinent positives: nausea and vomiting, Pertinent negatives: fever. The symptoms are described as constant, stabbing. Modifying factors: The symptoms are alleviated by nothing, the symptoms are aggravated by pressure. Severity of pain: At its worst the pain was moderate severe in the emergency department the pain is unchanged. The patient has experienced similar episodes in the past, chronically. The patient has not recently seen a physician. Pt reports abd pain that started while in the shower around 2129. States she has had this pain multiple times in the past and sees pain management for it, but they have told her when it becomes this severe to come to the ER to get it under control. Historical: - Allergies: 23:00 Motrin; hb 23:00 Toradol; hb - Home Meds: 23:00 levothyroxine 175 mcg cap 1 cap once daily [Active]; Premarin 1.25 mg Oral tab 1 tab hb [Active]; - PMHx: 23:00 Endometriosis of vagina; melanoma; hb - PSHx: 23:00 section; Cholecystectomy; Ovary removal; Thyroidectomy; hb 23:01 Hysterectomy; hb - Immunization history:: Adult Immunizations up to date. - Social history:: Smoking status: Patient reports the use of cigarette tobacco products, smokes one-half pack cigarettes per day. ROS: 23:54 Constitutional: Negative for fever, chills, and weight loss. kb 23:54 Abdomen/GI: Positive for abdominal pain, nausea and vomiting, Negative for diarrhea, constipation. 23:54 All other systems are negative. Exam: 23:54 Head/Face: Normocephalic, atraumatic. ENT: Moist Mucous membranes Cardiovascular: kb Regular rate and rhythm with a normal S1 and S2. No gallops, murmurs, or rubs. No pulse deficits. Respiratory: Respirations even and unlabored. No increased work of breathing. Talking in full sentences Skin: Warm, dry with normal turgor. Normal color. MS/ Extremity: Pulses equal, no cyanosis. Neurovascular intact. Full, normal range of motion. Neuro: Awake and alert, GCS 15, oriented to person, place, time, and situation. Moves all extremities. Normal gait. Psych: Awake, alert, with orientation to person, place and time. Behavior, mood, and affect are within normal limits. 23:54 Constitutional: The patient appears alert, awake, in obvious pain, uncomfortable. 23:54 Abdomen/GI: Inspection: abdomen appears normal, Bowel sounds: normal, Palpation: soft, in all quadrants, mild abdominal tenderness, in the right lower quadrant, moderate abdominal tenderness, in the right upper quadrant. Vital Signs: 22:58 BP 161 / 104; Pulse 122; Resp 16; Temp 97.4; Pulse Ox 99% on R/A; Weight 108.86 kg; hb Height 5 ft. 4 in. (162.56 cm); Pain 9/10; 03/19 00:58 Pulse 92; kb 03/18 22:58 Body Mass Index 41.19 (108.86 kg, 162.56 cm) hb 03/18 22:58 actively vomiting hb MDM: 22:53 Patient medically screened. kb 23:55 Data reviewed: vital signs, nurses notes. Data interpreted: Pulse oximetry: on room air kb is 99 %. Interpretation: normal. 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 03/18 22:58 Order name: CBC with Diff kb 03/18 22:58 Order name: CMP; Complete Time: 00:51 kb 03/18 22:58 Order name: Lipase; Complete Time: 00:51 kb 03/19 00:47 Order name: CBC Smear Scan EDMS 03/18 22:58 Order name: IV Saline Lock; Complete Time: 00:26 kb 03/18 22:58 Order name: Labs collected and sent; Complete Time: 00:26 kb Administered Medications: 00:10 Drug: Demerol (meperidine) 50 mg {Note: back of arm.} Route: IVP; Site: Other; ke1 00:15 Drug: Phenergan (promethazine) 12.5 mg {Note: back of am.} Route: IVP; Site: Other; ke1 00:30 Drug: NS 0.9% 1000 ml {Note: BAck R arm.} Route: IV; Rate: 1 bolus; Site: Other; ke1 00:42 Follow up: IV Status: IV infiltrated ke1 00:49 CANCELLED (Physician Discretion): Demerol (meperidine) 12.5 mg IVP once kb 00:53 CANCELLED (Physician Discretion): Demerol (meperidine) 25 mg IVP once kb 00:57 CANCELLED (Physician Discretion): Phenergan (promethazine) 12.5 mg IVP once kb 00:57 CANCELLED (Physician Discretion): fentaNYL (PF) 50 mcg IVP once kb 01:36 Drug: Phenergan (promethazine) 25 mg Route: IM; Site: right gluteus; ll3 01:36 Drug: fentaNYL (PF) 75 mcg Route: IM; Site: right gluteus; ll3 Disposition Summary: 03/19/22 00:58 Discharge Ordered Location: Home kb Condition: Stable kb Diagnosis - Abdominal pain, Generalized - chronic kb Followup: kb - With: Emergency Department - When: As needed - Reason: Worsening of condition Followup: kb - With: Private Physician - When: 2 - 3 days - Reason: Recheck today's complaints, Continuance of care, Re-evaluation by your physician Discharge Instructions: - Discharge Summary Sheet kb - Abdominal Pain, Adult, [id number] kb Forms: - Medication Reconciliation Form kb - Thank You Letter kb - Antibiotic Education kb - Prescription Opioid Use kb Signatures: Dispatcher [employer] EDMS Trinity Houser FNP-C FNP-Brigida Ballard, RN RN Cata Whitehead RN RN ll3 Joni Ritchie RN RN ke1 Corrections: (The following items were deleted from the chart) 00:49 00:49 Demerol (meperidine) 12.5 mg IVP once ordered. kb kb 00:53 00:49 Demerol (meperidine) 25 mg IVP once ordered. kb kb 00:57 00:49 Phenergan (promethazine) 12.5 mg IVP once ordered. kb kb 00:57 00:55 fentaNYL (PF) 50 mcg IVP once ordered. kb kb
--- NOTE | 2022-03-19 00:59 | ER ---
Nurse's Notes [facility] Name: Hong Pace Age: 36 yrs Sex: Female : 1985 Arrival Date: 03/18/2022 Time: 22:51 Bed 6 Private MD: Diagnosis: Abdominal pain, Generalized-chronic Presentation: 03/18 22:58 Chief complaint: Right sided abdominal pain and vomiting x 2 hours ago. Coronavirus hb screen: At this time, the client does not indicate any symptoms associated with coronavirus-19. Ebola Screen: No symptoms or risks identified at this time. Initial Sepsis Screen: Does the patient meet any 2 criteria? No. Patient's initial sepsis screen is negative. Does the patient have a suspected source of infection? No. Patient's initial sepsis screen is negative. Risk Assessment: Do you want to hurt yourself or someone else? Patient reports no desire to harm self or others. Onset of symptoms was March 18, 2022. 22:58 Method Of Arrival: Ambulatory hb 22:58 Acuity: [place] 3 hb Historical: - Allergies: 23:00 Motrin; hb 23:00 Toradol; hb - Home Meds: 23:00 levothyroxine 175 mcg cap 1 cap once daily [Active]; Premarin 1.25 mg Oral tab 1 tab hb [Active]; - PMHx: 23:00 Endometriosis of vagina; melanoma; hb - PSHx: 23:00 section; Cholecystectomy; Ovary removal; Thyroidectomy; hb 23:01 Hysterectomy; hb - Immunization history:: Adult Immunizations up to date. - Social history:: Smoking status: Patient reports the use of cigarette tobacco products, smokes one-half pack cigarettes per day. Screenin/19 01:48 Abuse screen: Denies threats or abuse. Denies injuries from another. Nutritional ll3 screening: No deficits noted. Tuberculosis screening: No symptoms or risk factors identified. Fall Risk None identified. Assessment: 00:41 Reassessment: IV infiltrated and D/c. ke1 Vital Signs: 03/18 22:58 BP 161 / 104; Pulse 122; Resp 16; Temp 97.4; Pulse Ox 99% on R/A; Weight 108.86 kg; hb Height 5 ft. 4 in. (162.56 cm); Pain 9/10; 03/19 00:58 Pulse 92; kb 03/18 22:58 Body Mass Index 41.19 (108.86 kg, 162.56 cm) hb 03/18 22:58 actively vomiting hb ED Course: 22:51 Patient arrived in ED. bp1 22:53 Trinity Houser FNP-C is [facility]. kb 22:53 Cole Disla MD is Attending Physician. kb 23:00 Triage completed. hb 23:00 Arm band placed on. hb 23:27 Joni Ritchie, [place] is Primary Nurse. ke1 03/19 00:00 Missed attempt(s): 20 gauge Bleeding controlled, band aid applied, catheter tip intact. oe 00:10 Inserted saline lock: 22 gauge in right ,using aseptic technique. back of arm. ke1 01:48 Patient has correct armband on for positive identification. Bed in low position. Call ll3 light in reach. Side rails up X 1. Adult w/ patient. 01:48 No provider procedures requiring assistance completed. IV discontinued, intact, ll3 bleeding controlled, No redness/swelling at site. Pressure dressing applied. Administered Medications: 00:10 Drug: Demerol (meperidine) 50 mg {Note: back of arm.} Route: IVP; Site: Other; ke1 00:15 Drug: Phenergan (promethazine) 12.5 mg {Note: back of am.} Route: IVP; Site: Other; ke1 00:30 Drug: NS 0.9% 1000 ml {Note: BAck R arm.} Route: IV; Rate: 1 bolus; Site: Other; ke1 00:42 Follow up: IV Status: IV infiltrated ke1 00:49 CANCELLED (Physician Discretion): Demerol (meperidine) 12.5 mg IVP once kb 00:53 CANCELLED (Physician Discretion): Demerol (meperidine) 25 mg IVP once kb 00:57 CANCELLED (Physician Discretion): Phenergan (promethazine) 12.5 mg IVP once kb 00:57 CANCELLED (Physician Discretion): fentaNYL (PF) 50 mcg IVP once kb 01:36 Drug: Phenergan (promethazine) 25 mg Route: IM; Site: right gluteus; ll3 01:36 Drug: fentaNYL (PF) 75 mcg Route: IM; Site: right gluteus; ll3 Medication: 01:49 VIS not applicable for this client. ll3 Outcome: 00:58 Discharge ordered by MD. coker 01:48 Discharged to home ambulatory, with family. ll3 01:48 Condition: stable 01:48 Discharge instructions given to patient, Instructed on discharge instructions, follow up and referral plans. Demonstrated understanding of instructions, follow-up care. 01:49 Patient left the ED. ll3 Signatures: Trinity Houser, ACTIVITIES OFFICER-C ACTIVITIES OFFICER-Ckb Brigida Moreira, RN RN Bruce Hines Brittany bp1 Loubet, Lynsea, RN RN ll3 Joni Ritchie RN RN ke1
[2022-03-19] MEDS ORDERED: ASPIRIN 81 MG CHEWABLE TABLET ONE (01:05)
[2022-03-19 01:19] LABS: Blood Morphology Comment NOT SEEN (NOT SEEN); Platelet Estimate ADEQ; White Blood Cell Scan OK (OK)
[2022-03-19] MEDS ORDERED: FENTANYL CITR 100 MCG/2 ML ONE (01:31)
[2022-03-19] MEDS ORDERED: LIDOCAINE 1% MPF 2 ML AMPULE ONE (01:32)
[2022-03-20 10:54] VITALS: BP 161/104; TEMP 97.4; O2SAT 99
== END 2022-03-19 01:49 | disposition home or self-care (01) ==
LOC: ER 22:48
DX: R10.84 Generalized abdominal pain (principal); F17.210 Nicotine dependence, cigarettes, uncomplicated; Z88.6 Allergy status to analgesic agent
CPT/HCPCS: 36415; 80053; 83690; 85025; 96372; 96374; 96375; 99283; J2175; J2550; J3010; J7030

== ENCOUNTER 2022-03-20 22:37 | Emergency (ER) | payer SELFPAY ==
--- OUTSIDE RECORDS SUMMARY | 2022-03-20 22:39 | XMS REPORT | Clinical Summary ---
:1985 Author Organization [facility] MD [facility] Center Address [address] [place] [address] Care Team Providers Name Role Phone Kelia Valentine MD Primary Care Provider Navi Arango CARD PUNCHER Unavailable Allergies Active Allergy Reactions Severity Noted [...] melan nu of skin (Primary Dx) after 03/20/2021 Immunizations Name Administration Dates Next Due Influenza [...] OVARIAN CYST SURGERY 08/29/2018 - Right 09/28/2018 NC EXC SKIN MALIG 0.6-1 CM 09/23/2018 Abdomen/Right Proce dure: EXCISION OF TRUNK,ARM,LEG MALIGNANT LESION OF TRUNK, right epi gastric; Surgeon: Nicolasa Valentine MD; Location: [facility] OR; Service: SURG ON C - [...] Visit Dermatology Lisbeth Shannon M D [address] [place], [place] [address] (Wo rk) Health Maintenance Due Date Last Done Comments COVID-19 Vaccination (#1) 01/11/1987 Results Not on fileafter 03/20/2021 Advance Directives Code Status Date Activated Date Inactivated Comments Full Code 10/04/2018 8:21 PM 10/08/2018 5:55 PM Full Code 09/23/2018 1:48 PM 09/23/2018 6:55 PM Care Teams Payroll Accounting Clerk Relationship Specialty Start Date End Date Keila Valentine MD PCP - General Surgical Oncology 08/26/18 [address] [place] [address] Navi Arango FNP PCP - External Primary Family Practice 09/08/18 [address] [place] [address]
--- OUTSIDE RECORDS SUMMARY | 2022-03-20 22:51 | XMS REPORT | Continuity of Care Document ---
:1985 Author Organization [facility] t Address [address] [place] [address] Care Team Providers Name Role Phone Keila [...] Number Effective Date Expiration Date Abhinav durbin [id number] 1958 00:00:00 [id number] 1958 00:00:00 PHCS GENERIC [id number] 2018 00:00:00 Problems Condition Condition Condition Status [...] Formattin ity of 00:00: g of this [place] 00 note is MD jim Springer from the n original. Cancer [facility] Readings from Last 2 Encounter s: 09/08/18 36.82 kg/m2 Hypothyroi Hypothyroi Disease Active U nivers dism dism 3-11 ity of 00:00: [place] 00 MD [facility] Malignant Malignant Disease Active Uni vers melanoma melanoma 3-06 ity of of other of other 00:00: [place] part of part of 00 trunk trunk [...] (LUF/LI V/SA) Anxiety Anxiety Problem Active [facility] Memoria l (LUF/LI V/SA) No known No known Disease Unive rs active active ity of problems problems [facility] Allergies, Adverse Reactions, Alerts Allergy Allergy Status Severity Reaction(s) Onset Inactive Treating Comm ents Source Name Type Date Date Clinician ketorola DA Active U rash [facility] 2- [place] 00:00: d 00 [facility] KETOROLA DRUG Active Low Rash 2020-07 Univers C INGREDI 08-22 ity of 00:00: [place] 00 [facility] Ketorola Propensi Active Rash 2020-07 Univer s c ty to 08-22 ity of adverse 00:00: [place] reaction 00 [facility] [place] DA Active [place] [facility] 9-10 [facility] ketorola DA Active U rash [facility] 9- [place] 00:00: d 00 [facility] ketorola DA Active U [facility] c 9-24 [place] 00:00: d 00 [facility] Ketorola Drug Active Itching Univers c Allergy 07-19 ity of 00:00: [place] 00 MD Gian [facility] Toradol Adverse Active Info Not Common Reaction Available Spiri t - [facility] Family History Family Member Diagnosis Comments Start Date Stop Date Source Natural mother -Breast cancer Univer sity of [place] MD Disla Cance r [place] Social History Social Habit Start Date Stop Date Quantity Comments Source Exposure to 2022-02-09 2022-02-19 Not sure University SARS-CoV-2 (event) 00:00:00 09:20:00 [facility] Alcohol intake 2018-10-04 2018-10-04 Current University of 00:00:00 00:00:00 non-drinker of [place] MD Lila muñoz [facility] (finding) Cigarette 2018-09-04 2018-09-04 University of pack-years 00:00:00 00:00:00 [place] MD Bah son [facility] [place] Tobacco use and 2018-09-04 2018-09-04 Smokeless Universit y of exposure 00:00:00 00:00:00 tobacco non-user [place] [facility] Cigarettes smoked 2018-09-04 2018-09-04 Univers ity of current (pack per 00:00:00 00:00:00 Jeffrey Neely ) - Reported Cancer Ce nter History of tobacco 2004-07-01 2017-05-11 Smoker Univer sity of use 00:00:00 00:00:00 Jeffrey Bah [facility] Sex Ass[birth year] At [birth year] [facility] 00:00:00 00:00:00 Hospital Smoking Status Start Date Stop Date Source Tobacco smoking [facility] consumption unknown Never smoked tobacco [facility] Ex-smoker 2018-09-04 00:00:00 2018-09-04 [place] o f Jeffrey BARNARD 00:00:00 [facility] Medications Ordered Filled Start Stop Current Ordering Indication Dosage Frequency Signature Comments Components Source Medication Medication Date Date Medication? Clinician (SIG) Name Name metoclopram 2021- No 10mg 10 mg, Uni vers oleg HCl 02-19 Slow IV ity of (REGLAN) 15:30: 15:37 Push, [place] injection 00 :00 ONCE, 1 Medical 10 mg dose, On Branch [facility] 02/19/22 at 1030, JOSE NaCl 0.9% 2021- No 1000mL at 999 Uni vers (NS) bolus 02-19 mL/hr, ity of infusion 15:30: 15:58 1,000 mL, Jacques as 1,000 mL 00 :00 IV Medical Infusion, Branch ONCE, 1 dose, On [facility] 02/19/22 at 1030, JOSE morpHINE (4 2021- No 4mg 4 mg, Slow Univers mg/mL) 02-19 IV Push, ity of injection 4 14:45: 15:05 [place]CE[place] 1 [place] mg [place] :[place] dose, On Medical [facility] Branch 02/19/22 at 0945, STAT ondansetron 2021- No 4mg 4 mg, Slow Univers (ZOFRAN 02-19 IV Push, ity of (PF)) 14:30: 15:05 ONCE, 1 [place] injection 4 00 :00 dose, On Medi felipa mg [facility] Branch 02/19/22 at 0930, JOSE methylPREDN 2021- Yes [id number] [facility] mouth ity of (MEDROL, 00:00: SEE-INSTRU Jacques as TE,) 4 mg 00 CTIONS. Medica l tablets follow Branch package directions methylPREDN Yes [id number] Take by Univers ISolone 11-29 mouth ity of (MEDROL, 00:00: SEE-INSTRU Jacques as TE,) 4 mg 00 CTIONS. Medica l tablets follow Branch package directions amoxicillin 2021- No [id number] 1{tbl} Take 1 Univers -clavulanat 11-29 tablet [...] [facility] ers conjugated 3-01 mouth. ity of (PREMARIN 16:19: [place] ORAL) 44 Medical Branch estrogens, Yes Take by [facility] ers conjugated 3-01 mouth. ity of (PREMARIN 16:19: [place] ORAL) 44 Medical Branch naproxen Yes [id number] 500mg Take 1 U nivers (NAPROSYN) 2-02 tablet by ity of 500 mg 00:00: mouth 2 [place] tablet 00 (two) Medical times Branch daily with meals. naproxen Yes [id number] 500mg Take 1 U nivers (NAPROSYN) 2-02 tablet by ity of 500 mg 00:00: mouth 2 [place] tablet 00 (two) Medical times Branch daily with meals. albuterol 2020-07 Yes [id number] 2{puff} Inhale 2 Univers 90 2-22 Puffs [...] Cough. Indication s: cough albuterol 2020-07 Yes [id number] 2{puff} Inhale 2 Univers 90 2-22 Puffs [...] 0-23 [facility] 00:00: - [facility] 00 [facility] estrogens, 2018-07 Yes Take by Univ ers conjugated 0-23 mouth ity of (PREMARIN 00:00: daily. [place] ORAL) 00 [facility] estrogens, 2018-07 Yes Take by Univ ers conjugated 0-23 mouth ity of (PREMARIN 00:00: daily. [place] ORAL) 00 MD [facility] estrogens, 2018-07 Yes Take by Univ ers conjugated 0-23 mouth ity of (PREMARIN 00:00: daily. [place] ORAL) [facility] estrogens, 2019 Yes Take by Univ ers conjugated 0-23 mouth ity of (PREMARIN 00:00: daily. [place] ORAL) [facility] estrogens, 2018-07 Yes Take by Univ ers conjugated 0-23 mouth ity of (PREMARIN 00:00: daily. [place] ORAL) 00 [facility] estrogens, 2018-07 Yes Take by Univ ers conjugated 0-23 mouth ity of (PREMARIN 00:00: daily. [place] ORAL) 00 [facility] Estradiol Estradiol 2018-07 Yes Kaywin 1 tablet Common 0- [facility] 00:00: - [facility] citalopram Yes Univers (CeleXA) 40 9-10 ity of mg tablet 00:00: [facility] citalopram Yes Univers (CeleXA) 40 9-10 ity of mg tablet 00:00: [facility] citalopram Yes Univers (CeleXA) 40 9-10 ity of mg tablet 00:00: [facility] citalopram 0 Yes Univers (CeleXA) 40 9-10 ity of mg tablet 00:00: [facility] citalopram 0 Yes Univers (CeleXA) 40 9-10 ity of mg tablet 00:00: MD Gian [facility] citalopram Yes Univers (CeleXA) 40 9-10 ity of mg tablet 00:00: MD [facility] levothyroxi Yes Univer s ne 175 mcg 8-10 ity of cap 00:00: MD [facility] levothyroxi Yes Univer s ne 175 mcg 8-10 ity of cap 00:00: MD [facility] levothyroxi Yes Univer s ne 175 mcg 8-10 ity of cap 00:00: MD [facility] levothyroxi Yes Univer s ne 175 mcg 8-10 ity of cap 00:00: MD [facility] levothyroxi Yes Univer s ne 175 mcg 8-10 ity of cap 00:00: MD [facility] levothyroxi Yes Univer s ne 175 mcg 8-10 ity of cap 00:00: [facility] zolpidem Yes Univers (AMBIEN) 10 07-01 ity of mg tablet 00:00: [facility] zolpidem Yes Univers (AMBIEN) 10 07-01 ity of mg tablet 00:00: [facility] zolpidem Yes Univers (AMBIEN) 10 07-01 ity of mg tablet 00:00: [facility] zolpidem Yes Univers (AMBIEN) 10 07-01 ity of mg tablet 00:00: [facility] zolpidem Yes Univers (AMBIEN) 10 07-01 ity of mg tablet 00:00: [facility] zolpidem Yes Univers (AMBIEN) 10 07-01 ity of mg tablet 00:00: [facility] acetaminoph acetaminoph Yes [address] [...] C HI St conjugated conjugated Gutierrez es (PRISON) 1.25 (PRISON) 1.25 Mem oria MG Oral MG Oral [...] [facility] conjugated conjugated daily Olamide kes (PRISON) 1.25 (PRISON) 1.25 Mem oria MG Oral MG Oral l Tablet Tablet (LUF/LI V/SA) levothyroxi levothyroxi Yes 150ug 1xD orally [facility] (LUF/LI V/SA) Celexa Celexa Yes Kaywin 1 tablet Commo n Aiden [facility] Levothyroxi Levothyroxi Yes Kaywin 1 tablet Common ne Sodium ne Sodium Aiden on an Sp karla empty - [facility]I stomach in [facility] Estradiol Estradiol Yes Kaywin 1 patch to Common Aiden skin [facility] Immunizations Ordered Filled Immunization Date Status Comments [facility] e Immunization Name Name influenza, high influenza, high 2015-04-19 Completed [facility] dose seasonal, dose seasonal, 00:00:00 Memori al preservative-free preservative-free (LUF/DAVID/SA) Influenza, 2011-03-30 Completed University of Unspecified 00:00:00 [place] MD Hamilton [facility] Tdap 2011-03-30 Completed University of 00:00:00 [place] MD Bah [facility] Influenza, 2011-03-30 Completed University of Unspecified 00:00:00 [place] MD Hamilton ilir [facility] Tdap 2011-03-30 Completed University of 00:00:00 [place] Olvin banuelos [facility] Influenza, 2011-03-30 Completed University of Unspecified 00:00:00 [place] Alfonso ilir [facility] Tdap 2011-03-30 Completed University of 00:00:00 [place] Olvin banuelos [facility] Influenza, 2011-03-30 Completed University of Unspecified 00:00:00 [place] MD Hamilton ilir [facility] Tdap 2011-03-30 Completed University of 00:00:00 [place] Olvin banuelos [facility] Influenza, 2011-03-30 Completed University of Unspecified 00:00:00 [place] Alfonso ilir [facility] Tdap 2011-03-30 Completed University of 00:00:00 [place] Olvin banuelos [facility] Influenza, 2011-03-30 Completed University of Unspecified 00:00:00 [place] Alfonso ilir [facility] Tdap 2011-03-30 Completed University [facility] 00:00:00 [place] [facility] Influenza (IM) 2009-04-05 Completed University of Preservative Free 00:00:00 [facility] Influenza (IM) 2009-04-05 Completed University of Preservative Free 00:00:00 [facility] Influenza (IM) 2009-04-05 Completed University of Preservative Free 00:00:00 [facility] Influenza (IM) 2009-04-05 Completed University of Preservative Free 00:00:00 [facility] Influenza (IM) 2009-04-05 Completed University of Preservative Free 00:00:00 [facility] Influenza (IM) 2009-04-05 Completed University of Preservative Free 00:00:00 [facility] Vital Signs Vital Name Observation Time Observation Value Comments Source Systolic blood 2022-02-19 14:13:00 156 mm[Hg] Univer sity of pressure [facility] Diastolic blood 2022-02-19 14:13:00 94 mm[Hg] Unive rsity of pressure [facility] Heart rate 2022-02-19 14:13:00 111 /min [facility] Body temperature 2022-02-19 14:13:00 37.11 Ericka [facility] Res[facility] rate 2022-02-19 14:13:00 22 /min Univ ers[facility] [place] [facility] Body height 2022-02-19 14:13:00 162.6 cm [facility] [place] [facility] Body weight 2022-02-19 14:13:00 104.327 kg [facility] [place] [facility] BMI 2022-02-19 14:13:00 39.48 kg/m2 [facility] [place] [facility] Oxygen saturation in 2022-02-19 14:13:00 99 /min University of Arterial blood by [facility] Pulse oximetry Branch Systolic blood 2021-11-29 22:40:00 116 mm[Hg] Univer sity of pressure [place] [facility] [place] Diastolic blood 2021-11-29 22:40:00 85 mm[Hg] Unive rsity of [facility] Heart rate 2021-11-29 22:40:00 87 /min [facility] [place] [facility] Body temperature 2021-11-29 22:40:00 37.28 Ericka [facility] [place] [facility] [place] Respiratory rate 2021-11-29 22:40:00 16 /min Univ ersity [facility] [place] [facility] Body height 2021-11-29 22:40:00 162.6 cm [facility] [place] [facility] Body weight 2021-11-29 22:40:00 103.874 kg [facility] ty [facility] [place] [facility] [place] BMI 2021-11-29 22:40:00 39.31 kg/m2 [facility] [place] [facility] Oxygen saturation in 2021-11-29 22:40:00 98 /min University of Arterial blood by [facility] Pulse oximetry Branch Height 2021-04-23 [...] Center Heart rate 2021-10-26 15:16:33 92 /min [facility] Respiratory rate 2021-10-26 15:16:33 16 /min [facility] Oxygen saturation in 2021-10-26 15:16:33 98 /min [facility] Arterial blood by Jeffrey muñoz Pulse oximetry [facility] Center Body Temperature 2021-04-23 00:58:00 97.8 [degF] [facility] (LUF/DAVID/SA) Pulse Rate 2021-04-23 00:58:00 116 /min [facility] (LUF/DAVID/SA) Respiratory Rate 2021-04-23 00:58:00 18 /min [facility] (F/DAVID/SA) O2% BldC Oximetry 2021-04-23 00:58:00 99 % [facility] (LUF/DAVID/SA) BP Systolic 2021-04-23 00:58:00 111 mm[Hg] [facility] (LUF/DAVID/SA) BP Diastolic 2021-04-23 00:58:00 77 mm[Hg] [facility] (LUF/DAVID/SA) Height 2021-04-23 00:58:00 64 [in_i] [facility] (LUF/DAVID/SA) Weight 2021-04-23 00:58:00 105.1 kg [facility] (LUF/DAVID/SA) BMI (Body Mass 2021-04-23 00:58:00 40 kg/m2 [facility] Index) [facility] (LUF/DAVID/SA) Body Temperature 2021-03-24 10:53:00 98.6 [degF] [facility] (LUF/DAVID/SA) Pulse Rate 2021-03-24 10:53:00 87 /min [facility] (LUF/DAVID/SA) Respiratory Rate 2021-03-24 10:53:00 18 /min [facility] (LUF/DAVID/SA) O2% BldC Oximetry 2021-03-24 10:53:00 97 % [facility] (LUF/DAVID/SA) BP Systolic 2021-03-24 10:53:00 120 mm[Hg] [facility] (LUF/DAVID/SA) BP Diastolic 2021-03-24 10:53:00 86 mm[Hg] [facility] (LUF/DAVID/SA) Height 2021-03-24 10:53:00 64 [in_i] [facility] (LUF/DAVID/SA) Weight 2021-03-24 10:53:00 105 kg [facility] (LUF/DAVID/SA) BMI (Body Mass 2021-03-24 10:53:00 40 kg/m2 [facility] Index) [facility] (LUF/DAVID/SA) Body Temperature 2021-03-10 10:55:00 98.4 [degF] [facility] (LUF/DAVID/SA) Pulse Rate 2021-03-10 10:55:00 85 /min [facility] (LUF/DAVID/SA) Respiratory Rate 2021-03-10 10:55:00 20 /min [facility] (LUF/DAVID/SA) O2% BldC Oximetry 2021-03-10 10:55:00 100 % [facility] (LUF/DAVID/SA) BP Systolic 2021-03-10 10:55:00 140 mm[Hg] [facility] (LUF/DAVID/SA) BP Diastolic 2021-03-10 10:55:00 98 mm[Hg] [facility] (LUF/DAVID/SA) Height 2021-03-10 10:55:00 64 [in_i] [facility] (LUF/DAVID/SA) Weight 2021-03-10 10:55:00 105.2 kg [facility] (F/DAVID/SA) BMI (Body Mass 2021-03-10 10:55:00 40 kg/m2 [facility] [place] [facility] (LUF/DAVID/SA) Pulse Rate 2021-02-23 12:32:00 67 /min [facility] (LUF/DAVID/SA) O2% BldC Oximetry 2021-02-23 12:32:00 98 % [facility] (F/DAVID/SA) BP Systolic 2021-02-23 12:32:00 112 mm[Hg] [facility] (LUF/DAVID/SA) BP Diastolic 2021-02-23 12:32:00 70 mm[Hg] [facility] (F/DAVID/SA) Heart Rate 2021-02-23 11:16:00 64 /min [facility] (F/DAVID/SA) Respiratory Rate 2021-02-23 11:16:00 14 /min [facility] (F/DAVID/SA) Body Temperature 2021-02-23 08:24:00 98.1 [degF] [facility] (F/DAVID/SA) Height 2021-02-23 08:24:00 64 [in_i] [facility] (F/DAVID/SA) Weight 2021-02-23 08:24:00 110 kg [facility] (F/DAVID/SA) BMI (Body Mass 2021-02-23 08:24:00 41.9 kg/m2 [facility] [place] [facility] (LUF/DAVID/SA) Heart Rate 2021-01-10 01:46:00 93 /min [facility] (LUF/DAVID/SA) Pulse Rate 2021-01-10 01:46:00 95 /min [facility] (LUF/DAVID/SA) Respiratory Rate 2021-01-10 01:46:00 16 /min [facility] (LUF/DAVID/SA) O2% BldC Oximetry 2021-01-10 01:46:00 97 % [facility] (LUF/DAVID/SA) BP Systolic 2021-01-10 01:46:00 103 mm[Hg] [facility] (LUF/DAVID/SA) BP Diastolic 2021-01-10 01:46:00 71 mm[Hg] [facility] (LUF/DAVID/SA) Weight 2021-01-10 00:53:00 102 kg [facility] (LUF/DAVID/SA) Body Temperature 2021-01-10 00:47:00 98.6 [degF] [facility] (LUF/DAVID/SA) Pulse Rate 2020-12-12 14:20:00 87 /min [facility] (LUF/DAVID/SA) O2% BldC Oximetry 2020-12-12 14:20:00 98 % [facility] (LUF/DAVID/SA) BP Systolic 2020-12-12 14:20:00 128 mm[Hg] [facility] (LUF/DAVID/SA) BP Diastolic 2020-12-12 14:20:00 86 mm[Hg] [facility] (LUF/DAVID/SA) Body Temperature 2020-12-12 12:39:00 98.9 [degF] [facility] (F/DAVID/SA) Respiratory Rate 2020-12-12 12:39:00 20 /min [facility] (LUF/DAVID/SA) Weight 2020-12-12 12:39:00 102 kg [facility] (F/DAVID/SA) Body Temperature 2020-12-08 10:27:00 98.6 [degF] [facility] (LUF/DAVID/SA) Pulse Rate 2020-12-08 10:27:00 79 /min [facility] (LUF/DAVID/SA) Respiratory Rate 2020-12-08 10:27:00 16 /min [facility] (LUF/DAVID/SA) O2% BldC Oximetry 2020-12-08 10:27:00 99 % [facility] (LUF/DAVID/SA) BP Systolic 2020-12-08 10:27:00 111 mm[Hg] [facility] (LUF/DAVID/SA) BP Diastolic 2020-12-08 10:27:00 57 mm[Hg] [facility] (LUF/DAVID/SA) Weight 2020-12-08 10:27:00 103 kg [facility] (LUF/DAVID/SA) Body Temperature 2020-11-25 00:27:00 97.9 [degF] [facility] (LUF/DAVID/SA) Pulse Rate 2020-11-25 00:27:00 82 /min [facility] (LUF/DAVID/SA) Respiratory Rate 2020-11-25 00:27:00 17 /min [facility] (LUF/DAVID/SA) O2% BldC Oximetry 2020-11-25 00:27:00 98 % [facility] (LUF/DAVID/SA) BP Systolic 2020-11-25 00:27:00 109 mm[Hg] [facility] (LUF/DAVID/SA) BP Diastolic 2020-11-25 00:27:00 62 mm[Hg] [facility] (LUF/DAVID/SA) Heart Rate 2020-11-21 09:30:00 75 /min [facility] (LUF/DAVID/SA) Respiratory Rate 2020-11-21 09:30:00 14 /min [facility] (LUF/DAVID/SA) BP Systolic 2020-11-21 09:30:00 120 mm[Hg] [facility] (LUF/DAVID/SA) BP Diastolic 2020-11-21 09:30:00 76 mm[Hg] [facility] (LUF/DAVID/SA) Body Temperature 2020-11-21 07:15:00 98.1 [degF] [facility] (LUF/DAVID/SA) Pulse Rate 2020-11-21 07:15:00 103 /min [facility] (LUF/DAVID/SA) O2% BldC Oximetry 2020-11-21 07:15:00 100 % [facility] (LUF/DAVID/SA) Height 2020-11-21 07:15:00 64 [in_i] [facility] (LUF/DAVID/SA) Weight 2020-11-21 07:15:00 103.1 kg [facility] (LUF/DAVID/SA) BMI (Body Mass 2020-11-21 07:15:00 39.2 kg/m2 [facility] [place] [facility] (LUF/DAVID/SA) Heart Rate 2020-11-14 13:30:00 69 /min [facility] (LUF/DAVID/SA) Pulse Rate 2020-11-14 13:30:00 70 /min [facility] (LUF/DAVID/SA) Respiratory Rate 2020-11-14 13:30:00 10 /min [facility] (LUF/DAVID/SA) O2% BldC Oximetry 2020-11-14 13:30:00 96 % [facility] (F/DAVID/SA) BP Systolic 2020-11-14 13:30:00 103 mm[Hg] [facility] (LUF/DAVID/SA) BP Diastolic 2020-11-14 13:30:00 77 mm[Hg] [facility] (LUF/DAVID/SA) Body Temperature 2020-11-14 09:47:00 97.4 [degF] [facility] (F/DAVID/SA) Weight 2020-11-14 09:47:00 103 kg [facility] (LUF/DAVID/SA) Body Temperature 2020-11-08 08:32:00 98.1 [degF] [facility] (LUF/DAVID/SA) Pulse Rate 2020-11-08 08:32:00 82 /min [facility] (LUF/DAVID/SA) Respiratory Rate 2020-11-08 08:32:00 20 /min [facility] (LUF/DAVID/SA) O2% BldC Oximetry 2020-11-08 08:32:00 100 % [facility] (LUF/DAVID/SA) BP Systolic 2020-11-08 08:32:00 129 mm[Hg] [facility] (LUF/DAVID/SA) BP Diastolic 2020-11-08 08:32:00 72 mm[Hg] [facility] (LUF/DAVID/SA) Height 2020-11-08 08:32:00 64 [in_i] [facility] (F/DAVID/SA) Weight 2020-11-08 08:32:00 103.1 kg [facility] (LUF/DAVID/SA) BMI (Body Mass 2020-11-08 08:32:00 39.2 kg/m2 [facility] (LUF/DAVID/SA) Body Temperature 2020-11-01 00:58:00 98.7 [degF] [facility] (F/DAVID/SA) Pulse Rate 2020-11-01 00:58:00 104 /min [facility] (LUF/DAVID/SA) Respiratory Rate 2020-11-01 00:58:00 20 /min [facility] (LUF/DAVID/SA) O2% BldC Oximetry 2020-11-01 00:58:00 99 % [facility] (LUF/DVAID/SA) BP Systolic 2020-11-01 00:58:00 133 mm[Hg] [facility] (LUF/DAVID/SA) BP Diastolic 2020-11-01 00:58:00 101 mm[Hg] [facility] (LUF/DAVID/SA) Height 2020-11-01 00:53:00 65 [in_i] [facility] (LUF/DAVID/SA) Weight 2020-11-01 00:53:00 103 kg [facility] (F/DAVID/SA) BMI (Body Mass 2020-11-01 00:53:00 37.8 kg/m2 [facility]) [facility] (LUF/DAVID/SA) Body Temperature 2020-10-04 23:51:00 98 [degF] [facility] (LUF/DAVID/SA) Pulse Rate 2020-10-04 23:51:00 96 /min [facility] (LUF/DAVID/SA) Respiratory Rate 2020-10-04 23:51:00 20 /min [facility] (LUF/DAVID/SA) O2% BldC Oximetry 2020-10-04 23:51:00 98 % [facility] (LUF/DAVID/SA) BP Systolic 2020-10-04 23:51:00 125 mm[Hg] [facility] (LUF/DAVID/SA) BP Diastolic 2020-10-04 23:51:00 73 mm[Hg] [facility] (LUF/DAVID/SA) Height 2020-10-04 23:47:00 65 [in_i] [facility] (LUF/DAVID/SA) Weight 2020-10-04 23:47:00 102.6 kg [facility] (LUF/DAVID/SA) BMI (Body Mass 2020-10-04 23:47:00 37.6 kg/m2 [facility] (LUF/DAVID/SA) Body Temperature 2020-09-18 01:44:00 98.3 [degF] [facility] (LUF/DAVID/SA) Pulse Rate 2020-09-18 01:44:00 116 /min [facility] (LUF/DAVID/SA) Respiratory Rate 2020-09-18 01:44:00 20 /min [facility] (LUF/DAVID/SA) O2% BldC Oximetry 2020-09-18 01:44:00 99 % [facility] (LUF/DAVID/SA) BP Systolic 2020-09-18 01:44:00 127 mm[Hg] [facility] (LUF/DAVID/SA) BP Diastolic 2020-09-18 01:44:00 83 mm[Hg] [facility] (LUF/DAVID/SA) Height 2020-09-18 01:40:00 64 [in_i] [facility] (LUF/DAVID/SA) Weight 2020-09-18 01:40:00 102.8 kg [facility] (LUF/DAVID/SA) BMI (Body Mass 2020-09-18 01:40:00 39.1 kg/m2 [facility] Index) [facility] (LUF/DAVID/SA) Pulse Rate 2020-09-12 02:16:00 88 /min [facility] (F/DAVID/SA) O2% BldC Oximetry 2020-09-12 02:16:00 98 % [facility] (F/DAVID/SA) BP Systolic 2020-09-12 02:16:00 113 mm[Hg] [facility] (LUF/DAVID/SA) BP Diastolic 2020-09-12 02:16:00 64 mm[Hg] [facility] (F/DAVID/SA) Body Temperature 2020-09-12 00:56:00 97.9 [degF] [facility] (F/DAVID/SA) Respiratory Rate 2020-09-12 00:56:00 18 /min [facility] (F/DAVID/SA) Height 2020-09-12 00:50:00 65 [in_i] [facility] (F/DAVID/SA) Weight 2020-09-12 00:50:00 104.5 kg [facility] (F/DAVID/SA) BMI (Body Mass 2020-09-12 00:50:00 38.3 kg/m2 [facility]) [facility] (F/DAVID/SA) Pulse Rate 2020-08-22 03:16:00 100 /min [facility] (F/DAVID/SA) O2% BldC Oximetry 2020-08-22 03:16:00 95 % [facility] (F/DAVID/SA) BP Systolic 2020-08-22 03:16:00 129 mm[Hg] [facility] (LUF/DAVID/SA) BP Diastolic 2020-08-22 03:16:00 88 mm[Hg] [facility] (F/DAVID/SA) Body Temperature 2020-08-22 01:35:00 98.4 [degF] [facility] (LUF/DAVID/SA) Respiratory Rate 2020-08-22 01:35:00 20 /min [facility] (LUF/DAVID/SA) Height 2020-08-22 01:35:00 64 [in_i] [facility] (LUF/DAVID/SA) Weight 2020-08-22 01:35:00 102 kg [facility] (LUF/DAVID/SA) BMI (Body Mass 2020-08-22 01:35:00 38.8 kg/m2 [facility]) [facility] (LUF/DAVID/SA) Pulse Rate 2020-08-06 03:31:00 83 /min [facility] (LUF/DAVID/SA) O2% BldC Oximetry 2020-08-06 03:31:00 96 % [facility] (LUF/DAVID/SA) BP Systolic 2020-08-06 03:31:00 127 mm[Hg] [facility] (LUF/DAVID/SA) BP Diastolic 2020-08-06 03:31:00 82 mm[Hg] [facility] (LUF/DAVID/SA) Body Temperature 2020-08-06 01:45:00 98 [degF] [facility] (LUF/DAVID/SA) Respiratory Rate 2020-08-06 01:45:00 20 /min [facility] (LUF/DAVID/SA) Height 2020-08-06 01:39:00 66 [in_i] [facility] (LUF/DAVID/SA) Weight 2020-08-06 01:39:00 104.2 kg [facility] (LUF/DAVID/SA) BMI (Body Mass 2020-08-06 01:39:00 37.3 kg/m2 [facility]) [facility] (LUF/DAVID/SA) Pulse Rate 2020-07-19 11:16:00 67 /min [facility] (LUF/DAVID/SA) O2% BldC Oximetry 2020-07-19 11:16:00 94 % [facility] (LUF/DAVID/SA) BP Systolic 2020-07-19 11:16:00 101 mm[Hg] [facility] (LUF/DAVID/SA) BP Diastolic 2020-07-19 11:16:00 63 mm[Hg] [facility] (LUF/DAVID/SA) Body Temperature 2020-07-19 07:50:00 98 [degF] [facility] (F/DAVID/SA) Respiratory Rate 2020-07-19 07:50:00 18 /min [facility] (F/DAVID/SA) Weight 2020-07-19 07:50:00 100 kg [facility] (F/DAVID/SA) Heart Rate 2020-07-05 04:46:00 80 /min [facility] (F/DAVID/SA) Respiratory Rate 2020-07-05 04:46:00 15 /min [facility] (F/DAVID/SA) BP Systolic 2020-07-05 04:46:00 134 mm[Hg] [facility] (LUF/DAVID/SA) BP Diastolic 2020-07-05 04:46:00 60 mm[Hg] [facility] (F/DAVID/SA) Body Temperature 2020-07-05 02:57:00 98 [degF] [facility] (F/DAVID/SA) Pulse Rate 2020-07-05 02:57:00 82 /min [facility] ([facility]/DAVID/SA) O2% BldC Oximetry 2020-07-05 02:57:00 99 % [facility] (F/DAVID/SA) Height 2020-07-05 02:50:00 65 [in_i] [facility] (F/DAVID/SA) Weight 2020-07-05 02:50:00 102.1 kg [facility] ([facility]/DAVID/SA) BMI (Body Mass 2020-07-05 02:50:00 37.5 kg/m2 [facility] (F/DAVID/SA) Body Temperature 2020-06-07 13:38:00 98.5 [degF] [facility] (LUF/DAVID/SA) Pulse Rate 2020-06-07 13:38:00 95 /min [facility] (LUF/DAVID/SA) Respiratory Rate 2020-06-07 13:38:00 20 /min [facility] (LUF/DAVID/SA) O2% BldC Oximetry 2020-06-07 13:38:00 97 % [facility] (LUF/DAVID/SA) BP Systolic 2020-06-07 13:38:00 129 mm[Hg] [facility] (LUF/DAVID/SA) BP Diastolic 2020-06-07 13:38:00 73 mm[Hg] [facility] (LUF/DAVID/SA) Height 2020-06-07 13:38:00 64 [in_i] [facility] (LUF/DAVID/SA) Weight 2020-06-07 13:38:00 99.79 kg [facility] (LUF/DAVID/SA) BMI (Body Mass 2020-06-07 13:38:00 38 kg/m2 [facility] (LUF/DAVID/SA) Body Temperature 2020-05-31 09:45:00 99.6 [degF] [facility] (LUF/DAVID/SA) Pulse Rate 2020-05-31 09:45:00 86 /min [facility] (LUF/DAVID/SA) Respiratory Rate 2020-05-31 09:45:00 18 /min [facility] (LUF/DAVID/SA) O2% BldC Oximetry 2020-05-31 09:45:00 98 % [facility] (LUF/DAVID/SA) BP Systolic 2020-05-31 09:45:00 118 mm[Hg] [facility] (LUF/DAVID/SA) BP Diastolic 2020-05-31 09:45:00 78 mm[Hg] [facility] (LUF/DAVID/SA) Height 2020-05-31 09:45:00 64 [in_i] [facility] (LUF/DAVID/SA) Weight 2020-05-31 09:45:00 99.79 kg [facility] (LUF/DAVID/SA) BMI (Body Mass 2020-05-31 09:45:00 38 kg/m2 [facility]) [facility] (LUF/DAVID/SA) Heart Rate 2020-04-25 20:01:00 69 /min [facility] (LUF/DAVID/SA) Pulse Rate 2020-04-25 20:01:00 71 /min [facility] (LUF/DAVID/SA) Respiratory Rate 2020-04-25 20:01:00 18 /min [facility] (LUF/DAVID/SA) O2% BldC Oximetry 2020-04-25 20:01:00 100 % [facility] (F/DAVID/SA) BP Systolic 2020-04-25 20:01:00 126 mm[Hg] [facility] (LUF/DAVID/SA) BP Diastolic 2020-04-25 20:01:00 86 mm[Hg] [facility] (LUF/DAVID/SA) Body Temperature 2020-04-25 16:50:00 98.4 [degF] [facility] (F/DAVID/SA) Height 2020-04-25 16:50:00 64 [in_i] [facility] (F/DAVID/SA) Weight 2020-04-25 16:50:00 220 [lb_av] [facility] (F/DAVID/SA) BMI (Body Mass 2020-04-25 16:50:00 38 kg/m2 [facility]) [facility] (LUF/DAVID/SA) Heart Rate 2020-03-20 18:18:00 112 /min [facility] (LUF/DAVID/SA) Pulse Rate 2020-03-20 18:16:00 93 /min [facility] (F/DAVID/SA) O2% BldC Oximetry 2020-03-20 18:16:00 92 % [facility] (F/DAVID/SA) BP Systolic 2020-03-20 18:16:00 127 mm[Hg] [facility] (LUF/DAVID/SA) BP Diastolic 2020-03-20 18:16:00 85 mm[Hg] [facility] (LUF/DAVID/SA) Body Temperature 2020-03-20 17:17:00 99.2 [degF] [facility] (LUF/DAVID/SA) Respiratory Rate 2020-03-20 17:17:00 19 /min [facility] (LUF/DAVID/SA) Height 2020-03-20 17:17:00 64 [in_i] [facility] (LUF/DAVID/SA) Weight 2020-03-20 17:17:00 106.9 kg [facility] (LUF/DAVID/SA) BMI (Body Mass 2020-03-20 17:17:00 40.7 kg/m2 [facility] (LUF/DAVID/SA) Respiratory Rate 2020-03-17 10:33:00 16 /min [facility] (LUF/DAVID/SA) Body Temperature 2020-03-17 07:54:00 97.9 [degF] [facility] (LUF/DAVID/SA) Pulse Rate 2020-03-17 07:54:00 83 /min [facility] (LUF/DAVID/SA) O2% BldC Oximetry 2020-03-17 07:54:00 96 % [facility] (LUF/DAVID/SA) BP Systolic 2020-03-17 07:54:00 107 mm[Hg] [facility] (LUF/DAVID/SA) BP Diastolic 2020-03-17 07:54:00 75 mm[Hg] [facility] (LUF/DAVID/SA) Weight 2020-03-17 00:09:00 105.6 kg [facility] (LUF/DAVID/SA) Heart Rate 2020-03-13 15:46:00 81 /min [facility] (LUF/DAVID/SA) Height 2020-03-13 15:31:00 64 [in_i] [facility] (LUF/DAVID/SA) Body Temperature 2020-03-02 15:20:00 98.6 [degF] [facility] (LUF/DAVID/SA) Pulse Rate 2020-03-02 15:20:00 86 /min [facility] (LUF/DAVID/SA) Respiratory Rate 2020-03-02 15:20:00 18 /min [facility] (LUF/DAVID/SA) O2% BldC Oximetry 2020-03-02 15:20:00 99 % [facility] (LUF/DAVID/SA) BP Systolic 2020-03-02 15:20:00 131 mm[Hg] [facility] (LUF/DAVID/SA) BP Diastolic 2020-03-02 15:20:00 85 mm[Hg] [facility] (LUF/DAVID/SA) Height 2020-03-01 10:54:00 64 [in_i] [facility] (LUF/DAVID/SA) Weight 2020-03-01 10:54:00 102 kg [facility] (LUF/DAVID/SA) BMI (Body Mass 2020-03-01 10:54:00 38.8 kg/m2 [facility] (LUF/DAVID/SA) Respiratory Rate 2020-02-27 07:47:00 16 /min [facility] (LUF/DAVID/SA) Body Temperature 2020-02-27 07:32:00 98.2 [degF] [facility] (LUF/DAVID/SA) Pulse Rate 2020-02-27 07:32:00 94 /min [facility] (LUF/DAVID/SA) O2% BldC Oximetry 2020-02-27 07:32:00 95 % [facility] (LUF/DAVID/SA) BP Systolic 2020-02-27 07:32:00 111 mm[Hg] [facility] (LUF/DAVID/SA) BP Diastolic 2020-02-27 07:32:00 56 mm[Hg] [facility] (LUF/DAVID/SA) Weight 2020-02-26 02:09:00 99.6 kg [facility] (LUF/DAVID/SA) Height 2020-02-25 10:03:00 64 [in_i] [facility] (LUF/DAVID/SA) Body Temperature 2020-02-25 00:52:00 97.9 [degF] [facility] (LUF/DAVID/SA) Pulse Rate 2020-02-25 00:52:00 118 /min [facility] (LUF/DAVID/SA) Respiratory Rate 2020-02-25 00:52:00 18 /min [facility] (LUF/DAVID/SA) O2% BldC Oximetry 2020-02-25 00:52:00 97 % [facility] (LUF/DAVID/SA) BP Systolic 2020-02-25 00:52:00 133 mm[Hg] [facility] (LUF/DAVID/SA) BP Diastolic 2020-02-25 00:52:00 67 mm[Hg] [facility] (LUF/DAVID/SA) Height 2020-02-25 00:47:00 64 [in_i] [facility] (LUF/DAVID/SA) Weight 2020-02-25 00:47:00 103.4 kg [facility] (LUF/DAVID/SA) BMI (Body Mass 2020-02-25 00:47:00 39.3 kg/m2 [facility]) [facility] (LUF/DAVID/SA) Body Temperature 2020-01-25 11:32:00 98.4 [degF] [facility] (LUF/DAVID/SA) Pulse Rate 2020-01-25 11:32:00 81 /min [facility] (LUF/DAVID/SA) Respiratory Rate 2020-01-25 11:32:00 14 /min [facility] (LUF/DAVID/SA) O2% BldC Oximetry 2020-01-25 11:32:00 98 % [facility] (LUF/DAVID/SA) BP Systolic 2020-01-25 11:32:00 139 mm[Hg] [facility] (LUF/DAVID/SA) BP Diastolic 2020-01-25 11:32:00 89 mm[Hg] [facility] (LUF/DAVID/SA) Height 2020-01-25 11:32:00 64 [in_i] [facility] (LUF/DAVID/SA) Weight 2020-01-25 11:32:00 100.5 kg [facility] (LUF/DAVID/SA) BMI (Body Mass 2020-01-25 11:32:00 38.2 kg/m2 [facility]) [facility] (LUF/DAVID/SA) Heart Rate 2019-11-24 04:16:00 84 /min [facility] (LUF/DAVID/SA) Pulse Rate 2019-11-24 04:16:00 90 /min [facility] (LUF/DAVID/SA) Respiratory Rate 2019-11-24 04:16:00 26 /min [facility] (LUF/DAVID/SA) O2% BldC Oximetry 2019-11-24 04:16:00 98 % [facility] (LUF/DAVID/SA) BP Systolic 2019-11-24 04:16:00 106 mm[Hg] [facility] (LUF/DAVID/SA) BP Diastolic 2019-11-24 04:16:00 69 mm[Hg] [facility] (LUF/DAVID/SA) Body Temperature 2019-11-24 00:54:00 98.4 [degF] [facility] (LUF/DAVID/SA) Height 2019-11-24 00:49:00 65 [in_i] [facility] (LUF/DAVID/SA) Weight 2019-11-24 00:49:00 103 kg [facility] (LUF/DAVID/SA) BMI (Body Mass 2019-11-24 00:49:00 37.8 kg/m2 [facility] (LUF/DAVID/SA) Heart Rate 2019-10-07 22:54:00 83 /min [facility] (LUF/DAVID/SA) Respiratory Rate 2019-10-07 22:54:00 14 /min [facility] (LUF/DAVID/SA) Pulse Rate 2019-10-07 22:31:00 89 /min [facility] (LUF/DAVID/SA) O2% BldC Oximetry 2019-10-07 22:31:00 97 % [facility] (LUF/DAVID/SA) BP Systolic 2019-10-07 21:16:00 127 mm[Hg] [facility] (LUF/DAVID/SA) BP Diastolic 2019-10-07 21:16:00 85 mm[Hg] [facility] (LUF/DAVID/SA) Height 2019-10-07 20:41:00 64 [in_i] [facility] (LUF/DAVID/SA) Weight 2019-10-07 20:41:00 100.2 kg [facility] (LUF/DAVID/SA) BMI (Body Mass 2019-10-07 20:41:00 38.1 kg/m2 [facility] Index) [facility] (LUF/DAVID/SA) Pulse Rate 2019-09-20 04:16:00 96 /min [facility] (LUF/DAVID/SA) Respiratory Rate 2019-09-20 04:16:00 9 /min [facility] (LUF/DAVID/SA) O2% BldC Oximetry 2019-09-20 04:16:00 96 % [facility] (LUF/DAVID/SA) BP Systolic 2019-09-20 04:16:00 97 mm[Hg] [facility] (LUF/DAVID/SA) BP Diastolic 2019-09-20 04:16:00 76 mm[Hg] [facility] (LUF/DAVID/SA) Body Temperature 2019-09-20 00:44:00 98 [degF] [facility] (LUF/DAVID/SA) Height 2019-09-20 00:39:00 65 [in_i] [facility] (LUF/DAVID/SA) Weight 2019-09-20 00:39:00 101.9 kg [facility] (LUF/DAVID/SA) BMI (Body Mass 2019-09-20 00:39:00 37.4 kg/m2 [facility] Index) [facility] (LUF/DAVID/SA) Pulse Rate 2019-08-17 04:31:00 81 /min [facility] (LUF/DAVID/SA) Respiratory Rate 2019-08-17 04:31:00 13 /min [facility] (LUF/DAVID/SA) O2% BldC Oximetry 2019-08-17 04:31:00 97 % [facility] (LUF/DAVID/SA) BP Systolic 2019-08-17 04:31:00 136 mm[Hg] [facility] (LUF/DAVID/SA) BP Diastolic 2019-08-17 04:31:00 75 mm[Hg] [facility] (LUF/DAVID/SA) Body Temperature 2019-08-17 02:23:00 97.6 [degF] [facility] (LUF/DAVID/SA) Height 2019-08-17 02:19:00 64 [in_i] [facility] (LUF/DAVID/SA) Weight 2019-08-17 02:19:00 100.6 kg [facility] (LUF/DAVID/SA) BMI (Body Mass 2019-08-17 02:19:00 38.3 kg/m2 [facility] Index) [facility] (LUF/DAVID/SA) Pulse Rate 2018-12-07 02:33:00 79 /min [facility] (LUF/DAVID/SA) Respiratory Rate 2018-12-07 02:33:00 15 /min [facility] (LUF/DAVID/SA) O2% BldC Oximetry 2018-12-07 02:33:00 96 % [facility] (LUF/DAVID/SA) BP Systolic 2018-12-07 02:33:00 120 mm[Hg] [facility] (LUF/DAVID/SA) BP Diastolic 2018-12-07 02:33:00 76 mm[Hg] [facility] (LUF/DAVID/SA) Body Temperature 2018-12-07 01:10:00 98.2 F [facility] (F/DAVID/SA) Height 2018-12-07 01:10:00 64 in [facility] (LUF/DAVID/SA) Weight Measured 2018-12-07 01:10:00 218.25 lbs [facility] (LUF/DAVID/SA) BMI (Body Mass 2018-12-07 01:10:00 37.7 kg/m2 [facility]) [facility] (LUF/DAVID/SA) Pulse Rate 2018-09-30 19:40:00 70 /min [facility] (F/DAVID/SA) Respiratory Rate 2018-09-30 19:40:00 21 /min [facility] (F/DAVID/SA) O2% BldC Oximetry 2018-09-30 19:40:00 100 % [facility] (F/DAVID/SA) BP Systolic 2018-09-30 19:40:00 124 mm[Hg] [facility] (LUF/DAVID/SA) BP Diastolic 2018-09-30 19:40:00 88 mm[Hg] [facility] (LUF/DAVID/SA) Body Temperature 2018-09-30 19:23:00 99.3 F [facility] (LUF/DAVID/SA) Height 2018-09-30 19:23:00 66 in [facility] (LUF/DAVID/SA) Weight Measured 2018-09-30 19:23:00 212.52 lbs [facility] (LUF/DAVID/SA) BMI (Body Mass 2018-09-30 19:23:00 34.5 kg/m2 [facility] Index) [facility] (LUF/DAVID/SA) Body Temperature 2018-09-01 13:59:00 98 F [facility] (LUF/DAVID/SA) Pulse Rate 2018-09-01 12:15:00 74 /min [facility] (LUF/DAVID/SA) Respiratory Rate 2018-09-01 12:15:00 16 /min [facility] (F/DAVID/SA) O2% BldC Oximetry 2018-09-01 12:15:00 98 % [facility] (LUF/DAVID/SA) BP Systolic 2018-09-01 12:15:00 131 mm[Hg] [facility] (LUF/DAVID/SA) BP Diastolic 2018-09-01 12:15:00 78 mm[Hg] [facility] (LUF/DAVID/SA) Height 2018-09-01 09:16:00 64 in [facility] (F/DAVID/SA) Weight Measured 2018-09-01 09:16:00 214.24 lbs [facility] (LUF/DAVID/SA) BMI (Body Mass 2018-09-01 09:16:00 37 kg/m2 [facility] Index) [facility] (LUF/DAVID/SA) Body Temperature 2018-05-13 10:58:00 99 F [facility] (LUF/DAVID/SA) Pulse Rate 2018-05-13 10:58:00 97 /min [facility] (LUF/DAVID/SA) Respiratory Rate 2018-05-13 10:58:00 18 /min [facility] (LUF/DAVID/SA) O2% BldC Oximetry 2018-05-13 10:58:00 98 % [facility] (LUF/DAVID/SA) BP Systolic 2018-05-13 10:58:00 131 mm[Hg] [facility] (LUF/DAVID/SA) BP Diastolic 2018-05-13 10:58:00 88 mm[Hg] [facility] (LUF/DAVID/SA) Height 2018-05-13 10:58:00 64 in [facility] (LUF/DAVID/SA) Weight Measured 2018-05-13 10:58:00 207.23 lbs [facility] (LUF/DAVID/SA) BMI (Body Mass 2018-05-13 10:58:00 35.8 [facility] (LUF/DAVID/SA) Body Temperature 2017-12-24 08:04:00 98.7 F [facility] (LUF/DAVID/SA) Respiratory Rate 2017-12-24 08:04:00 18 /min [facility] (F/DAVID/SA) O2% BldC Oximetry 2017-12-24 08:04:00 98 % [facility] (LUF/DAVID/SA) BP Systolic 2017-12-24 08:04:00 126 mm[Hg] [facility] (LUF/DAVID/SA) BP Diastolic 2017-12-24 08:04:00 86 mm[Hg] [facility] (LUF/DAVID/SA) Weight Measured 2017-12-24 08:04:00 207.23 lbs [facility] (F/DAVID/SA) Body Temperature 2017-06-20 23:28:00 97.4 F [facility] (F/DAVID/SA) Respiratory Rate 2017-06-20 23:28:00 20 /min [facility] (F/DAVID/SA) O2% BldC Oximetry 2017-06-20 23:28:00 99 % [facility] (LUF/DAVID/SA) BP Systolic 2017-06-20 23:28:00 107 mm[Hg] [facility] (LUF/DAVID/SA) BP Diastolic 2017-06-20 23:28:00 76 mm[Hg] [facility] (LUF/DAVID/SA) Height 2017-06-20 23:28:00 64 in [facility] Weight Measured 2017-06-20 23:28:00 217.15 lbs [facility] S t Isra [facility] (LUF/DAVID/SA) BMI (Body Mass 2017-06-20 23:28:[address] 37.[address] [facility] Index) [facility] (LUF/DAVID/SA) Procedures Procedure Date / Time Performing Clinician Source Performed CT ABDOMEN PELVIS WO 2022-02-19 15:49:34 Trice Harris [facility] CONTRAST [facility] LIPASE 2022-02-19 14:26[facility] MET[facility]OLIC PANEL 2022-02-19 14:26:00 Trice Harris [facility] ([id number]) [facility] CBC WITH DIFF 2022-02-19 14:26[facility] 2022-02-19 14:26:00 [facility]REFUSAL FOR 2022-02-19 14:11:01 Doctor Unassigned, [facility] DIAGNOSIS AND TREATMENT [facility] POCT MOLECULAR FLU 2021-11-29 22:46:00 Ameena Preston [facility] INS INFUS DEV LT BASILIC 2020-03-15 00:00:[address] [facility] PERQ [facility] (LUF/DAVID/SA) ULTRASONOGRAPHY LT UP EXT 2020-03-15 00:00:[address] [facility] GUID [facility] (LUF/DAVID/SA) ROBOTIC LAP LYSIS OF 2020-03-02 12:56:[address] [facility] [facility] ADHESIONS [facility] (LUF/DAVID/SA) LAPAROSCOPY ENTEROLYSIS 2020-03-02 00:00:[address] [facility] SEPARATE PROCEDU [facility] (LUF/DAVID/SA) COLONOSCOPY FLX DX W/COLLJ 2020-02-26 00:00:[address] [facility] SPEC WHEN [facility] ([facility]) ROBOTIC RIGHT OOPHORECTOMY 2019-03-21 17:09:[address] [facility] LUF (Right) [facility] ([facility]) CYSTO RGP STENT PLACEMENT 2015-04-20 14:01:00 CH I [facility] (LUF/DAVID/SA) CYSTO RGP STENT PLACEMENT 2015-04-20 14:01:00 CH I [facility] LUF [facility] (LUF/DAVID/SA) Hysterectomy [facility] (LUF/DAVID/SA) Total thyroidectomy [facility] (LUF/DAVID/SA) section [facility] (LUF/DAVID/SA) ABDOMINAL ADHESIONS [facility] REMOVED [facility] (F/DAVID/SA) Extracorporeal shockwave [facility] lithotripsy [facility] (F/DAVID/SA) MULTIPLE CYSTECTOMYS DONE [facility] (LUF/DAVID/SA) MULTIPLE CYSTECTOMYS DONE [facility] (F/DAVID/SA) ABDOMINAL ADHESIONS [facility] REMOVED [facility] (LUF/DAVID/SA) Appendectomy [facility] (F/DAVID/SA) Plan of Care Planned Activity Planned [...] Clinicians Facility Department ID 2021-07-27 Outpatient Nba, STCARLOS ENRIQUELC [facility] Common 08:27:02 Josué 0127 [facility] 2021-07-26 Outpatient Nba, STLMLC STLMLC Common 14:20:31 Josué 1203 [facility] 2021-07-26 Outpatient Nba, STLMLC STLMLC Common 14:05:52 Josué 1027 [facility] 2021-07-26 Outpatient Nba, STLMLC STL[facility]C Common 12:01:28 Josué 1103 [facility] 2021-07-26 Outpatient Nba, STLMLC STL[facility]C Common 11:56:42 Josué 1019 [facility] 2021-07-26 Outpatient Nba, STLMLC STL[facility]C Common 11:49:38 Josué 0928 [facility] 2021-07-26 Outpatient Nba, STLMLC STLMLC Common 11:48:02 Josué 0922 [facility] 2021-07-26 Outpatient Nba, STLMLC STLMLC Common 11:47:47 Josué 0921 [facility] 2021-07-26 Outpatient Nba, STLMLC STLMLC Common 11:42:15 Josué 0901 [facility] 2021-07-26 Outpatient Nba, STLMLC STLMLC Common 11:32:09 Josué 0720 [facility] 2022-02-19 2022-02-19 Emergency X [facility] ERT [id number] Univers 09:15:00 11:05:[address] [facility] 2022-02-19 2022-02-19 Emergency [facility] 1.2.840.114 [id number] Univers 09:15:00 11:05:00 Trice GAONA 350.1.13.10 i ty of [place] 4.2.7.2.686 [place] [phone] [place] 964334 [place] 2021-11-29 2021-11-29 [facility]gent [facility] 1.2.840.114 [id number] Univers 17:40:00 18:00:00 Care [facility] 350.1.13.10 it y of [place] 4.2.7.2.686 Jacques as SUE?BLEA [phone] Wy dical [address] MEDICAL OFFICE BUILDING 2021-11-29 2021-11-29 Outpatient R MOHAN [facility] [id number] Univers 17:40:00 17:40:00 AMEENA ity of [facility] 2021-10-26 2021-10-26 Office GEOVANI Blas, 1.2.840.1 [id number] Univers 09:45:00 10:47:06 Visit Praveen 48878.1.1 ity of 3.412.2.7 Jeffrey .3.752150 MD Diaz [facility] 2021-10-26 2021-10-26 Office Shiva 1.2.840.1 [id number] Univers 09:45:00 10:47:06 Visit Praveen 31262.1.1 ity of 3.412.2.7 [place] .3.250798 MD Diaz [facility] 2021-10-26 2021-10-26 Travel 1.2.840.1 1.2.409.635 [id number] Univers 00:00:00 00:00:00 12382.1.1 350.1.13.41 ity of 3.412.2.7 2.2.7.3.698 [place] .3.752438 084.8 MD Diaz [facility] 2021-10-26 2021-10-26 Travel 1.2.840.1 1.2.090.326 0743 [id number] Univers 00:00:00 00:00:00 17310.1.1 350.1.13.41 ity of 3.412.2.7 2.2.7.3.698 [place] .3.309790 084.8 MD .8 [facility] 2021-10-15 2021-10-15 MALINGERER 1 SHAMAA, [facility] [id number] 22:25:00 22:45:00 CONSCIOUS EKTA LINDEN Luke s [facility], Memor ia [address] (LUF/LI AVE, V/SA) [place] [address] 2021-10-15 2021-10-15 Inpatient [facility] 79e1 4a53-b [facility] 00:[facility]:00 00:00:00 LINDEN 896-4ae3-9 Gutierrez [facility], [id number] Memor ia [address] 097eaa l [address] (LUF/LI AVE, V/[place]) [place] [address] 2021-10-15 2021-10-15 Inpatient [facility] 2f6e c8b8-[address] 00:00:00 00:00:00 LINDEN 053-4dfa-8 [facility], [id number] Memor ia [address] 66e57b l [address] (LUF/LI AVE, V/SA) [place] [address] 2021-08-07 2021-08-07 Emergency EM Tyree, [facility] AMPARO [id number] [facility] 09:36:00 12:55:00 Olga 19 [facility] 2021-05-30 2021-05-30 ambulatory STLMLC STLMLC [id number] Common 00:00:00 00:00:00 [facility] 2021-05-29 2021-05-29 ambulatory STLMLC STLMLC [id number] Common 00:00:00 00:00:00 [facility] 2021-04-26 2021-04-26 Outpatient STLMLC STLMLC [id number] Common 00:00:00 00:00:00 [facility] 2021-04-23 2021-04-23 UNSPECIFIE 1 LONI DYKES EMD [id number] [facility] 00:46:00 02:08:00 Chin Dhaliwal ABDOMINAL Memori a PAIN l (LUF/LI V/SA) 2021-04-23 2021-04-23 Inpatient [facility] fb11 ce73-[address] 00:00:00 00:00:00 LINDEN l64-5m35-5 [facility], [id number]-[id number] Memor ia [address] a89c0d l [place] (LUF/LI AVE, V/SA) [place] [address] 2021-04-23 2021-04-23 Inpatient [facility] 6aab 1878-[address] 00:00:00 00:00:00 LINDEN g5d-6998-5 [facility], [id number] Memor ia [address] 822c23 l [place] (LUF/LI AVE, V/SA) [place] [address] 2021-03-24 2021-03-24 ANXIETY 1 COTTON, [facility] [id number] [facility] [address] 10:25:00 12:27:00 [facility] UNSPECIFIE [place], Memor ia D [address] (LUF/LI AVE, V/SA) [place] [address] 2021-03-24 2021-03-24 Inpatient [facility] f871 cc2a-c [facility] 00:00:00 00:00:00 LINDEN 9aa-405b-9 [facility], [phone] Memor ia [address] cf90e3 l [address] (LUF/LI AVE, V/SA) [place] [address] 2021-03-24 2021-03-24 Inpatient [facility] e945 ff19-c [facility] 00:00:00 00:00:00 LINDEN a54-2d69-g [facility], 88b-033ffa Memor ia [address] 683da2 l [place] (LUF/LI AVE, V/SA) [place] [address] 2021-03-23 2021-03-23 Orders Nofies, 1.2.840.1 [id number] Univers 00:00:00 00:00:00 Only Viktoriya Charlton 92835.1.1 ity of 3.412.2.7 [place] .3.133923 .8 [facility] 2021-03-23 2021-03-23 Orders Nofi, 1.2.840.1 [id number] Univers 00:00:00 00:00:00 Only Viktoriya Charlton 05962.1.1 ity of 3.412.2.7 [place] .3.105992 MD Carter8 [facility] 2021-03-10 2021-03-10 UTI SITE E KOSCIUK, [facility] 0100 [id number] [facility] 10:29:00 13:50:00 NOT JUAN [facility], Memori a [address] (LUF/LI AVE, V/SA) [place] [address] 2021-03-10 2021-03-10 Inpatient [facility] 16e7 6598-b [facility] 00:00:00 00:00:00 LINDEN t2p-2662-7 [facility], a3k-[id number] Memor ia [address] 8ebb0b l [place] (LUF/LI AVE, V/SA) [place] [address] 2021-03-10 2021-03-10 Inpatient [facility] 518c 3339-c [facility] 00:00:00 00:00:00 LINDEN l33-5jj1-4 [facility], r9z-3gb46c Memor ia [address] [id number] l [place] (LUF/LI AVE, V/SA) [place] [address] 2021-02-23 2021-02-23 RIGHT E [facility] [id number] [facility] [address] 08:15:00 12:44:00 LOWER [facility], Memoria PAIN [address] (LUF/LI AVE, V/SA) [place] [address] 2021-02-23 2021-02-23 Inpatient [facility] 89b5 d1de-[address] 00:00:00 00:00:00 LINDEN 09f-406d-9 [facility], 74d-24f9de Memor ia [address] e8fcf1 l [place] (LUF/LI AVE, V/[place]) [place] [address] 2021-02-23 2021-02-23 Inpatient [facility] [place] [id number] e20f-[address] 00:00:00 00:00:00 LINDEN 1ef-425c-a [facility], [id number] Memor ia [address] 1655de l [place] (LUF/LI AVE, V/SA) [place] [address] 2021-01-10 2021-01-10 CALCULUS Jake DYKES, [facility] OF [place] [id number] [facility] 00:21:00 03:06:00 [facility] [place], Memoria [address] (LUF/LI AVE, V/SA) [place] [address] 2021-01-10 2021-01-10 Inpatient [facility] OF [facility]0d 2205-c [facility] 00:00:00 00:00:00 LINDEN a76-4k63-e [facility], 72a-[id number] Memor ia [address] [id number] l [place] (LUF/LI AVE, V/[place]) [place] [address] 2021-01-10 2021-01-10 Inpatient [facility] OF [facility] fe83-e [facility] 00:00:00 00:00:00 LINDEN ff6-4d87-9 [facility], [id number]-[id number] Memor ia [address] e09ed4 l [place] (LUF/LI A[address], V/[place]) [place] [address] 2020-12-27 2020-12-27 Emergency [facility] Zarina [id number] [place] 00:00:00 00:00:[address] 2020-12-22 2020-12-22 Outpatient 3 LONI MURILLO TIC [id number] 09:00:00 09:00:00 SKYE Dhaliwal Memoria l (LUF/LI V/SA) 2020-12-13 2020-12-13 Emergency EM AnaSHEY [facility] [id number] [facility] 01:53:00 06:36:00 Tangela Stern [facility] 2020-12-12 2020-12-12 RIGHT Jake COTTON, [facility] [id number] 12:33:00 14:00:00 LOWER [facility] [place], Memoria PAIN [address] (LUF/LI A[address], V/SA) [place], [place] [address] 2020-12-12 2020-12-12 Inpatient [facility] e2c0 cb47-b [facility] 00:00:00 00:00:00 LINDEN 82f-45d0-a [facility], 13e-0f9f6d Memor ia [address] c5p438 l [place] (LUF/LI AVE, V/SA) [place] [address] 2020-12-12 2020-12-12 Inpatient [facility] 43ed f7fe-[address] 00:00:00 00:00:00 LINDEN y97-52hz-f [facility], [id number] Memor ia [address] 70ade3 l [place] (LUF/LI A[address], V/[place]) [place] [address] 2020-12-08 2020-12-08 UNSPECIFIE Jake SOTOMAYOR, [facility] [id number] [facility] [address] 09:44:00 12:26:00 D WYATT [facility] a PAIN [address] (LUF/LI A[address], V/SA) [place] [address] 2020-12-08 2020-12-08 Inpatient [facility] 6a3f a794-a [facility] 00:00:00 00:00:00 LINDEN 3a5-2v41-8 [facility], [id number] Memor ia [address] 9973a7 l [place] (LUF/LI AVE, V/SA) [place] [address] 2020-11-25 2020-11-25 UNSPECIFIE [facility] [id number] 00:13:00 00:30:00 D [facility] ABDOMINAL [place], [facility] PAIN [address] (LUF/LI A[address], V/SA) [place] [address] 2020-11-25 2020-11-25 Inpatient [facility] 3041 db6a-[address] 00:00:00 00:00:00 LINDEN fb6-4754-b [facility], [id number]-[id number] Memor ia [address] 841f4f l [place] (LUF/LI AVE, V/SA) [place] [address] 2020-11-25 2020-11-25 Inpatient [facility] a3eb ed11-a [facility] 00:00:00 00:00:00 LINDEN q53-4ju6-7 Gutierrez [facility], [id number] Memor ia [address] ea5dda l [place] (LUF/LI AVE, V/SA) [place] [address] 2020-11-21 2020-11-21 ENDOMETRIO 1 [facility] [id number] [id number] [facility] 07:14:00 09:53:[address] [facility] UNSPECIFIE [place], Memor ia D [address] (LUF/LI A[address], V/SA) [place] [address] 2020-11-21 2020-11-21 Inpatient [facility] 90f0 278b-0 [facility] 00:00:00 00:00:00 LINDEN 9s2-41ns-2 [facility], 4bb-5eeded Memor ia [address] [id number] l [place] (LUF/LI AVE, V/SA) [place] [address] 2020-11-21 2020-11-21 Inpatient [facility] 3b21 9c7a-9 [facility] 00:00:00 00:00:00 LINDEN 30a-405e-8 Gutierrez [facility], [id number] Memor ia [address] 3040c4 l [place] (LUF/LI AVE, V/SA) [place] [address] 2020-11-14 2020-11-14 GASTRITIS 1 LONI COTTON EMD [id number] [facility] [address] 09:27:00 14:37:00 UNS REHAN Dhaliwal WITHOUT Memoria BLEEDING l (LUF/LI V/SA) 2020-11-14 2020-11-14 Inpatient [facility] d4fe d3e2-[address] [facility] 00:00:00 00:00:00 LINDEN 3cf-4b7a-a [facility], 2ad-d46ca7 Memor ia [address] 2d56cc l [place] (LUF/LI AVE, V/SA) [place] [address] 2020-11-14 2020-11-14 Inpatient [facility] 324e 65b9-b [facility] 00:00:00 00:00:00 LINDEN 464-403c-8 [facility], [id number] Memor ia [address] u2517l l [place] (LUF/LI AVE, V/[place]) [place] [address] 2020-11-08 2020-11-08 OTHER E YURY, [facility] 21079 [id number] [facility] 08:04:00 13:13:00 CHRONIC REHAN [facility], Memoria [address] (LUF/LI A[address], V/SA) [place], [place] [address] 2020-11-08 2020-11-08 Inpatient [facility] 8079 b52c-c [facility] 00:00:00 00:00:00 LINDEN ed8-4ae3-8 [facility], [id number] Memor ia [address] cf6d84 l [place] (LUF/LI AVE, V/SA) [place], [place] [address] 2020-11-08 2020-11-08 Inpatient [facility] 0f07 dc59-5 [facility] 00:00:00 00:00:00 LINDEN 292-4184-b [facility], 8ff-44cd4a Memor ia [address] d1bfd4 l [place] (LUF/LI AVE, V/SA) [place] [address] 2020-11-08 2020-11-08 Inpatient [facility] 40b4 e14c-[address] 00:00:00 00:00:00 LINDEN 784-40e4-9 [facility], [id number] Memor ia [address] 29ea9a l [place] (LUF/LI A[address], V/SA) [place], [facility] 2020-11-01 2020-11-01 NAUSEA E WANDA, [facility] [address] 00:27:00 03:55:00 WITH CLEMENT [facility], Memoria UNSPECIFIE [address] l D [place] (LUF/LI A[address], V/SA) [place], [place] [address] 2020-11-01 2020-11-01 Inpatient [facility] 1ec3 64c1-c [facility] 00:00:00 00:00:00 LINDEN v54-4utr-j [facility], 85a-y4796o Memor ia [address] r6506i l [place] (LUF/LI A[place], V/[place]) [place] [address] 2020-11-01 2020-11-01 Inpatient [facility] 79c0 b023-[address] 00:00:00 00:00:00 LINDEN 1t4-437d-z [facility], [id number] Memor ia [address] 783eec l [place] ([address]F/LI A[address], V/[place]) [place] [address] 2020-10-04 2020-10-05 OTHER E RODRICK, [facility] [id number] 23:32:00 01:00:00 CHRONIC JUAN [facility], Memoria [address] [place] ([address]F/LI A[address], V/SA) [place] [address] 2020-10-04 2020-10-04 Inpatient [facility] b016 f3f5-a [facility] 00:00:00 00:00:00 LINDEN 4m0-0l9f-e [facility], [id number] Memor ia [address] bb93d3 l [place] (LUF/LI AVE, V/SA) [place] [address] 2020-10-04 2020-10-04 Inpatient [facility] ea96 0c7a-[address] 00:00:00 00:00:00 LINDEN 25c-4997-b [facility], m20-[id number] Memor ia [address] 1f27e6 l [place] (LUF/LI A[address], V/[place]) [place] [address] 2020-09-18 2020-09-18 OTHER E [facility] [id number] 01:00:00 04:44:00 CHRONIC LINDEN [facility] [place], Memoria [address] [place] ([address]F/LI A[address], V/SA) [place] [address] 2020-09-18 2020-09-18 Inpatient [facility] b80a 7ee5-[address] 00:00:00 00:00:00 LINDEN 4m1-570c-1 [facility], [id number] Memor ia [address] [id number] l [place] ([address]F/LI A[place], V/[place]) [place] [address] 2020-09-18 2020-09-18 Inpatient [facility] 1a33 0198-a [facility] 00:00:00 00:00:00 LINDEN 921-44cf-8 [facility], [id number] Memor ia [address] 698118 l [place] ([address]F/LI [address], V/[place]) [place] [address] 2020-09-12 2020-09-12 ENDOMETRIO E KOSCIUK, [facility] [id number] [facility] 00:46:00 02:38:00 SIS JUAN [facility] UNSPECIFIE [place], Memor ia D [address] (LUF/LI AVE, V/SA) [place] [address] 2020-09-12 2020-09-12 Inpatient [facility] 726d 153b-a [facility] 00:00:00 00:00:00 LINDEN e5g-8678-2 [facility], [id number] Memor ia [address] 2913af l [place] (LUF/LI AVE, V/SA) [place] [address] 2020-09-12 2020-09-12 Inpatient [facility] 9a2d b59c-c [facility] 00:00:00 00:00:00 LINDEN 607-4f36-8 [facility], [id number] Memor ia [address] 655cce l [place] (LUF/LI A[address], V/[place]) [place] [address] 2020-08-22 2020-08-22 OTHER E KOSCIUK, [facility] [id number] 01:13:00 03:24:00 [facility]IC [facility] [address] [place] [address]F/LI A[place], V/[place]) [place] [address] 2020-08-22 2020-08-22 Inpatient [facility] 7a1d d2a9-[address] [facility] 00:00:00 00:00:00 LINDEN 050-4a19-8 [facility], 62e-7ef55a Memor ia [address] 6eae2a l [place] (LUF/LI AVE, V/SA) [place] [address] 2020-08-22 2020-08-22 Inpatient [facility] 53d3 2542-f [facility] 00:00:00 00:00:00 LINDEN 72a-4479-9 [facility], 7da-c14e55 Memor ia [address] 284d1a l [place] (LUF/LI A[address], V/[place]) [place] [address] 2020-08-06 2020-08-06 Inpatient E RODRICK, [facility] [id number] 01:21:00 03:35:00 [facility] [address] [place] (LUF/LI A[address], V/SA) [place] [address] 2020-08-06 2020-08-06 Inpatient [facility] 07b7 067c-a [facility] 00:00:00 00:00:00 LINDEN 5y4-3jg5-6 [facility], [id number] [facility] [address] 4f7e15 l [place] (LUF/LI AVE, V/SA) [place] [address] 2020-07-19 2020-07-19 RIGHT E YURY, [facility] [address] 07:50:00 11:20:[address] [facility], [facility]IN [address] [place] (LUF/LI A[address], V/SA) [place] [address] 2020-07-19 2020-07-19 Inpatient [facility] 625d 6050-c [facility] 00:00:00 00:00:00 LINDEN 92c-4e48-9 [facility], [id number]-aa7c63 Memor ia [address] [id number] l [place] (LUF/LI A[address], V/SA) [place] [address] 2020-07-19 2020-07-19 Inpatient [facility] 0f28 [id number] [facility] 00:00:00 00:00:00 LINDEN bbb-4c99-b [facility], 7cf-[id number] Memor ia [address] ca6e76 l [place] (LUF/LI AVE, V/SA) [place] [address] 2020-07-05 2020-07-05 OTHER Jake MENSAH, [facility] 44877 64932 [facility] 02:42:00 05:00:00 CHRONIC JUAN [facility], Memoria [address] [place] (LUF/LI A[address], V/SA) [place] [address] 2020-07-05 2020-07-05 Inpatient [facility] 525e 4189-f [facility] 00:00:00 00:00:00 LINDEN bff-495f-b [facility], [id number] Memor ia [address] 7ec68b l [place] (LUF/LI A[address], V/SA) [place] [address] 2020-07-05 2020-07-05 Inpatient [facility] c54b 2c2e-e [facility] 00:00:00 00:00:00 LINDEN 987-4ea3-9 [facility], [id number] Memor ia [address] [id number] l [place] (LUF/LI A[address], V/SA) [place] [address] 2020-06-10 2020-06-10 [facility] [id number] Common 00:00:00 00:00:00 [facility] 2020-06-07 2020-06-07 Inpatient 1 YURY, [facility] [id number] [facility] [address] 12:56:00 19:04:00 REHAN [facility], [facility] [address] [place] (LUF/LI A[address], V/SA) [place] [address] 2020-06-07 2020-06-07 Inpatient [facility] [id number] [facility] 00:00:00 00:00:00 LINDEN [id number] Gutierrez [facility], [id number] [facility] [id number] ([address], V/SA) [place] [id number] 2020-05-31 2020-05-31 Inpatient E COTTON, [facility] [place] [id number] [facility] 09:31:00 14:13:00 [facility] [address] ([address], V/SA) [place]N ROSA [id number] 2020-05-10 2020-05-10 Outpatient STLMLC STLMLC [id number] Common 00:00:00 00:00:00 [facility] 2020-05-09 2020-05-09 Outpatient STLMLC STLMLC [id number] Common 00:00:00 00:00:00 [facility] 2020-05-05 2020-05-05 Outpatient STLMLC STLMLC [id number] Common 00:00:00 00:00:00 [facility] 2020-05-02 2020-05-02 Outpatient STLMLC STLMLC [id number] Common 00:00:00 00:00:00 [facility] 2020-05-02 2020-05-02 Outpatient STLMLC STLMLC [id number] Common 00:00:00 00:00:00 [facility] 2020-04-29 2020-04-29 Outpatient STLMLC STLMLC [id number] Common 00:00:00 00:00:00 [facility] 2020-04-25 2020-04-25 LEFT LOWER E [facility] [place] [id number] [facility] [address] 16:46:00 21:30:00 [facility] [address] ([address], V/SA) [place] [id number] 2020-04-22 2020-04-22 Outpatient STLMLC STLMLC [id number] Common 00:00:00 00:00:00 [facility] 2020-04-20 2020-04-20 PROC&TX [facility] [id number] [facility] [address] 15:39:00 16:03:00 NOT [facility], [facility] OUT PT [address] (LUF/YUKI PIZANOE, V/SA) [facility] [place] [address] 2020-04-20 2020-04-20 Outpatient STLMLC STLMLC [id number] Common 00:00:00 00:00:00 [facility] 2020-04-20 2020-04-20 Outpatient STLMLC STLMLC [id number] Common 00:00:00 00:00:00 [facility] 2020-04-15 2020-04-15 Outpatient STLMLC STLMLC [id number] Common 00:00:00 00:00:00 [facility] 2020-04-13 2020-04-13 Outpatient STLMLC STLMLC [id number] Common 00:00:00 00:00:00 [facility] 2020-04-12 2020-04-12 Outpatient STLMLC STLMLC [id number] Common 00:00:00 00:00:00 [facility] 2020-04-11 2020-04-11 Outpatient STLMLC STLMLC [id number] Common 00:00:00 00:00:00 [facility] 2020-04-08 2020-04-08 Outpatient STLMLC STLMLC [id number] Common 00:00:00 00:00:00 [facility] 2020-04-06 2020-04-06 Outpatient STLMLC STLMLC [id number] Common 00:00:00 00:00:00 [facility] 2020-04-04 2020-04-04 Outpatient STLMLC STLMLC [id number] Common 00:00:00 00:00:00 [facility] 2020-03-31 2020-03-31 Outpatient STLMLC STLMLC [id number] Common 00:00:00 00:00:00 [facility] 2020-03-29 2020-03-29 Outpatient GEOVANI BLAS MDA MDA [id number] 00:00:00 00:00:00 PRAVEEN payton 2020-03-29 2020-03-29 Outpatient STLMLC STLMLC [id number] Common 00:00:00 00:00:00 [facility] 2020-03-28 2020-03-28 Outpatient STLMLC STLMLC [id number] Common 00:00:00 00:00:00 [facility] 2020-03-22 2020-03-22 Outpatient STLMLC STLMLC [id number] Common 00:00:00 00:00:00 [facility] 2020-03-21 2020-03-21 Outpatient STLMLC STLMLC [id number] Common 00:00:00 00:00:00 [facility] 2020-03-20 2020-03-20 FEDE COTTON, [facility] [place] [id number] [facility] [address] 17:08:00 22:56:00 ABDOMINAL REHAN [facility] PAIN [facility] UNSPECIFIE [address] ([address]F/[address], V/[place]) [place] [address] 2020-03-14 2020-03-17 CELLULITIS E TRUX, [facility] [place] [id number] 14:54:00 11:30:00 OF PRESYBETERIAN [facility] ABDOMINAL [facility] a WALL [address] ([address], V/[place]) [place] [address] 2020-03-03 2020-03-03 Outpatient [facility] [id number] Common 13:33:00 13:33:00 Clinics Clinics [facility] Women's Women's [facility] Health I Health I [facility] 2020-03-02 2020-03-02 ALEJANDRA WOLFE, [facility] [place] [id number] 05:58:00 15:35:00 PERITON KALESLEY [facility] POSTINFECT [address] ([address], V/[place]) [place] [address] 2020-03-02 2020-03-02 Outpatient STLMLC STLMLC [id number] Common 00:00:00 00:00:00 [facility] 2020-03-01 2020-03-01 Outpatient [facility] [id number] Common 09:15:00 09:15:00 [facility] 2020-02-29 2020-02-29 Outpatient [facility] [id number] Common 09:30:00 09:30:00 [facility] 2020-02-25 2020-02-27 LOWER E YURY, [facility] [place] [id number] [facility] [address] 13:21:00 12:09:00 ABDOMINAL REHAN [facility] s PAIN [place], [facility] UNSPECIFIE [address], V/SA) [place] [address] 2020-02-25 2020-02-25 UNSPECIFIE E RODRICK, [facility] [id number] [facility] [address] 00:40:00 05:00:00 D JUAN [facility] ABDOMINAL [place], [facility] [address], V/SA) [place] [address] 2020-01-25 2020-01-25 LOW BACK 1 YURY, [facility] [id number] [facility] [address] 11:28:00 13:15:00 PAIN REHAN [facility] [address], V/SA) [place] [address] 2020-01-18 2020-01-18 [facility] [id number] Common 11:45:00 11:45:00 [facility] 2019-12-09 2019-12-09 OTHER E [facility] [place] [address] [id number] [facility] [address] 03:03:00 05:08:00 CHRONIC [facility] PAIN [place], [facility] [address], V/SA) [place] [address] 2019-11-24 2019-11-24 UNSPECIFIE E [facility] [place] [id number] [facility] [address] 00:31:00 05:30:00 D [facility] ABDOMINAL [place], [facility] [address], V/SA) [place] [address] 2019-10-07 2019-10-07 RIGHT 1 YURY, [facility] [place] [id number] 20:35:00 23:10:00 LOWER REHAN LINDEN [facility] [place], [facility]oria PAIN [address], V/SA) [place] [address] 2019-09-20 2019-09-20 RIGHT 1 YURY, [facility] [place] [address] 00:33:00 04:23:00 LOWER REHAN LINDEN [facility] [place], Memoria PAIN [address], V/SA) [place] [address] 2019-08-17 2019-08-17 UNSPECIFIE 1 RIVERA, [facility] [place] [id number] 02:18:00 04:45:00 D PRESYBETERIAN LINDEN Luke s ABDOMINAL [place], [facility] [address], V/SA) [place] [address] 2019-04-22 2019-04-22 Outpatient [facility] [id number] Common 12:03:00 12:03:[address] [facility] 2019-04-14 2019-04-14 Outpatient [facility] [id number] 30 Common 16:12:00 16:12:00 [facility] 2019-04-06 2019-04-06 Outpatient [facility] [id number] Common 12:16:00 12:16:00 [facility] Health [facility] 2019-03-31 2019-03-31 [facility] 42758 76 Common 14:00:00 14:00:00 [facility] Health [facility] 2018-12-07 2018-12-07 UNSPECIFIE 1 QUINTIN BRITO [facility] [id number] [facility] 01:06:00 04:45:00 D OVARIAN LINDEN Luke s CYST RIGHT [place], [facility] SIDE [address], V/SA) [place] [address] 2018-10-29 2018-10-29 N-PRSS CHR BLAKESTAD, [facility] [id number] [facility] 06:59:00 23:59:00 ULCR SKIN MIKY [facility] [address], V/SA) [place] [address] 2018-10-22 2018-10-22 N-PRSS CHR BLAKESTAD, [facility] [id number] [facility] 07:20:00 23:59:00 ULCR SKIN MIKY [facility] [address], V/SA) [place] [address] 2018-10-15 2018-10-15 N-PRSS CHR O BLAJAYLYNTAD, [facility] [id number] [facility] 07:08:00 23:59:00 ULCR SKIN MIKY [facility] [address], V/SA) [place] [address] 2018-09-30 2018-10-01 INFCT FOL 1 SHABNAM, [facility] [id number] [facility] 18:46:00 01:05:00 PRC SUPF DIMAS [facility] SIT INIT [address], V/SA) [place] [address] 2018-09-01 2018-09-01 OTH 1 WANDA, [facility] [place] [phone] [id number] 09:12:00 14:00:00 NONINFL CLEMENT [facility] D/O OVARY [facility] a TUBE&BRD [address] ([address], V/SA) [facility] [place] [address] 2018-05-13 2018-05-13 Inpatient 1 WANDA, [facility] [id number] 10:52:00 13:46:00 CLEMENT [facility] [address], V/SA) [place] [address] 2017-12-24 2017-12-24 UNSPECIFIE 1 QUINTIN BRITO [facility] [id number] [facility] [address] 07:51:00 13:52:[address] [facility] s CYST RIGHT [place], [facility] SIDE [address], V/SA) [place] [address] 2017-06-20 2017-06-21 HYDRONPHRO 1 RODRICK, [facility] [id number] [facility] 23:01:00 03:55:00 S JUAN [facility] RENL&URETR [place], Memor ia L CALCUL [address] ([address], V/SA) [place] [address] 2017-05-13 2017-05-13 OTHER 3 MERLE, [facility] [place] [phone] [facility] [address] 15:40:00 23:59:00 FATIGUE ASA [facility], Memoria [address], V/SA) [place] [address] Results Test Description Test Time Test Comments Results Result Comments Source COMP. METABOLIC PANEL (97165) 2022-02-19 14:56:05 Test Item Value Reference Range Interpretation Comme nts NA (test code = 5609069779) 137 mmol/L 135-145 K (test code = 5752486731) 4.2 mmol/L 3.5-5 CL (test code = 4866591483) 108 mmol/L 98-108 CO2 TOTAL (test code = 8509890020) 19 mmol/L 23-31 L AGAP (test code = 0295076973) 2-16 BUN (test code = 4276417049) 14 mg/dL 7-23 GLUCOSE (test code = 1364139426) 133 mg/dL 70-110 H CREATININE (test code = 0.56 mg/dL 0.5-1.04 7443038871) TOTAL BILI (test code = 0.4 mg/dL 0.1-1.8 4878717120) CALCIUM (test code = 5074665592) 8.9 mg/dL 8.6-10.6 T PROTEIN (test code = 8789888780) 6.5 g/dL 6.3-8.2 ALBUMIN (test code = 2176107319) 4.0 g/dL 3.5-5 ALK PHOS (test code = 4560926030) 84 U/L 34-122 ALTv (test code = 1742-6) 23 U/L 5-35 AST(SGOT) (test code = 3582838250) 24 U/L 13-40 eGFR (test code = 1719450178) mL/min/1.73m2 RENZO (test code = RENZO) Association [...] tests). Lab Interpretation (test code = Abnormal 04937-2) [facility] 14:55:44 Test Item Value Reference Range Interpretation Comments LIPASE (test code = 4785632517) 81 U/L 0-220 Lab Interpretation (test code = Normal 62434-6) [facility] WITH [id number] 14:36:26 Test Item Value Reference Range Interpretation Comments WBC (test code = See_Comment [Automated 6690-2) message] The sy stem which generated this [...] RDW-SD (test code = 43.9 fL 39-49.9 56117-1) RDW-CV (test code = 13.7 % 12-15.5 788-0) PLT (test code = See_Comment [Automated 777-3) message] The sy stem which generated this result transmitted reference range : 166 - 358 10*3/ ?L. The reference r bruce was not used to interpret this result as normal/abnormal . MPV (test code = 8.5 fL 9.5-12.9 L 06014-7) NRBC/100 WBC (test See_Comment [Automat ed code = 2791328476) message] The system which generated this result transmitted reference range : 0.0 - 10.0 /100 WBCs. The refer ence range was not u sed to interpret th is result as normal/abnormal . NRBC x10^3 (test code See_Comment [Auto mated = 3173628036) message] The s ystem which generated this result transmitted reference range : 10*3/?L. The reference range was not used to interpret this result as normal/abnormal . GRAN MAT (NEUT) % 58.7 % (test code = 770-8) IMM GRAN % (test code 1.10 % = 8001714921) LYMPH % (test code = 31.6 % 736-9) MONO % (test code = 6.8 % 5905-5) EOS % (test code = 1.4 % 713-8) BASO % (test code = 0.4 % 706-2) GRAN MAT x10^3(ANC) 3.30 10*3/uL 1.88-7.09 (test code = 9598323212) IMM GRAN x10^3 (test 0.06 10*3/uL 0-0.06 code = 5851108755) LYMPH x10^3 (test code 1.77 10*3/uL 1.32-3.29 = 731-0) MONO x10^3 (test code 0.38 10*3/uL 0.33-0.92 = 742-7) EOS x10^3 (test code = 0.08 10*3/uL 0.03-0.39 711-2) BASO x10^3 (test code 0.01-0.07 = 704-7) Lab Interpretation Abnormal (test code = 54966-0) [facility] CenterPO[facility] MOLECULAR [id number] 22:58:14 Test Item Value Reference Range Interpretation Comments POCT Molecular FluA (test code = Negative Negative 51005-5) POCT Molecular FluB (test code = Negative Negative 96451-4) Lab Interpretation (test code = Normal 23530-2) [facility] Center[facility] FUNCTION PANEL (LIVER)2021-10-16 13:57:00 Test [...] (test code = 0.2 mg/dl 0.0-1.1 IBIL) [id number] 13:57:00 Test Item Value Reference Range Interpretation Comments Lipase (test code = LIPA) 114 U/L 73-393 AMYLASE, [id number] 13:57:00 Test Item Value Reference Range Interpretation Comments Amylase (test code = AMYL) 51 U/L 25-115 STAT LAB CHEM [id number] 22:45:00 Test Item Value Reference Range Interpretation [...] 24.0-29.0 L STAT LAB CBC WITH AUTO [id number] 22:43:00 Test Item Value Reference Range Interpretation [...] = IG%) 0.2 % 0.0-0.4 HEPATIC FUNCTION [id number] 13:03:00 Test Item Value Reference Range Interpretation [...] 96 Unit/L 45-117 N code = ALKP) [id number] 13:03:00 Test Item Value Reference Range Interpretation Comments LIPASE (test code = LIP) 83 Unit/L 114-286 L BASIC METABOLIC [id number] 13:03:00 Test Item Value Reference Range Interpretation [...] 8.5-10.1 N UA RFLX MICR CULT IF [id number] 12:44:00 Test Item Value Reference Range Interpretation [...] OF URINE: CLEAN CATCH- CT ABD PELVIS [id number] 12:27:00 [facility] 1985 Sex: F Name: LAUREN BETH [facility] : 1985 Age/S: 36 / F [address] Unit #: [id number]: Julián Holcomb [address] Phys: Marco Hilton NP Acct: [id number] Dis Date: Status: REG ER PHONE #:[phone] Exam Date: 08/07/20213 FAX #: Reason: LLQ ABD PAIN EXAMS: CPT: [id number] CT ABD PELVIS W/CONT 21932 EXAM: CT ABDOMEN AND PELVIS WITH CONTRAST. [...] involving the stomach. The small bowel, and largebowel are normal in appearance. No bowel obstruction is identified. No lymphadenopathy is identifiedin the abdomen or pelvis. No free fluid [...] BETH : 1985 Age/S: 36 / F [address] Unit #: [id number] Loc: Aicha [id number] Phys: Marco Hilton NP Acct: [id number] Dis Date: Status: REG ER PHONE #: [phone] Exam Date: 08/07/2021 1223 FAX #: Reason: LLQ ABD PAIN EXAMS: CPT: [id number] CT ABD PELVIS W/CONT 42784 <Continued> at 1227 Reported and signed by: Alma Cartwright M.D. CC: Olga Clements DO; Marco Hilton NP Technologist:Elmer Laguna RT(R) CTDI: DLP: Trnscb Date/Time: 08/07/2021 (1707) [email or web address] Orig Print D/T: S: 08/07/2021 (5593) PAGE 2 Signed ReportCBC W/AUTO [id number] 12:23:00 Test Item Value Reference Range Interpretation [...] DIFF/SCN CRITERIA = MDIFF) [facility] 2019 [facility])2021-03-24 17:04:00 Test Item Value Reference Range Interpretation Comments FT (test code Negative Negative N [employer] SARS -CoV-2 = COVID) (qualifier value) Reagents f or BD MAX System, the EDUonGo Covid-19, and t yuan Cepheid Covid-1 9 [...] contact the Coronavirus [facility] at [phone]. [id number] 12:37:00 Test Item Value Reference Range Interpretation [...] 0.5-1.3 code = CREA) EGFR if >60 Georgian (test code mL/min/1.73m\\ = EGFRAA) S\\2 EGFR if Non- >60 Estimate d Glomerular Georgian (test code mL/min/1.73m\\ Filtrat ion Rate (eGFR) [...] of c hronic kidney failure. STAT LAB [id number] 12:11:00 Test Item Value Reference Range Interpretation [...] after the clini felipa event. PT AND [id number] 12:09:00 Test Item Value Reference Range Interpretation Comments Protime (test code 9.5 seconds 9.5-12.1 = PT) INR (test code = 0.9 0.9-1.1 INR results are intended INR) ONLY to monitor Oral Anticoagulant t herapy in stablized patie nts. The INR Therapeutic Range is 2.0 - 3.0 Patie nts with a mechanical he art, the INR Range is 2. 5 - 3.5 [id number] 12:09:00 Test Item Value Reference Range Interpretation Comments aPTT (test code = PTT) 22.3 seconds 23.9-30.7 L STAT LAB CBC WITH AUTO [id number] 11:57:00 Test Item Value Reference Range Interpretation [...] 0.3 % 0.0-0.4 XR CHEST AP/PA 1 [id number] 11:33:32 [facility])Name: LAUREN BETH : 1985 Sex: FProcedure: XR CHEST AP/PA 1 VIEWOrder Date: 03/24/2021 10:57 AMOrdering Provider: REHAN Farrellinical Indication: [id number]: DyspneaComparison: September 30, 2018Findings:Cardiac size is normal.Pulmonary vasculature is normal.Mediastinal contour is normal.Aortic contour is normal.No acute infiltrates or effusions.There is no mass or pneumothorax.There is no evidence of active tuberculosis.There isno acute skeletal abnormality.Impression: Negative AP view of the chest.This final report was electronically signed by Dr Farzad Dewitt MD :28 AMDictated By: FARZAD DEWITTDate: :28CULTURE, [id number] 08:00:00Specimen: Urine SpecimensCollected: 03/10/2021 11:50 Status: Final [...] code = NEGATIVE NEGATIVE N UKET) Specific [place] 1.015 1.005-1.030 A (test code = USPGR) Blood (test code = NEGATIVE NEGATIVE N UBLD) PH (test code = UPH) 7.0 4.5-8.0 A Protein (test code = NEGATIVE NEGATIVE N UPROT) Urobilinogen (test 0.2 See_Comment N [Automat ed message] code = U UROB) The system [facility] generated this result transmit michael [...] = NSE) STAT LAB CBC WITH AUTO [id number] 12:10:00 Test Item Value Reference Range Interpretation [...] 0.8 % 0.0-0.4 H STAT LAB CHEM [id number] 12:08:00 Test Item Value Reference Range Interpretation [...] = CREA) 0.5 mg/dl 0.6-1.3 L CULTURE, [id number] 08:26:00Specimen: Urine SpecimensCollected: 02/23/2021 08:35 Status: Final Last Updated: 02/24/2021 08:26 CULTURE (Final) (Final) Many Mixed Body Gabriela Isolated No Pathogens IsolatedCT ABDOMEN/PELVIS W/CONTRAST 2021-02-23 11:40:43 NANCY [facility]/)Name: LAUREN BETH : 1985 Sex: FProcedure: CT ABDOMEN/PELVIS W/CONTRASTOrder date: 02/23/2021 10:08 AMOrdering Provider: REHAN Farrellinical Indication: [id number]: Right lower quadrant painComparison: November 14, 2020Technique: [...] MD 111:35 AMDictated By: WILEY VELÁZQUEZDate: 02/23/2021 11:[id number] 10:44:00 Test Item Value Reference Range Interpretation Comments Lipase (test code = LIPA) 86 U/L 73-393 URINALYSIS WITH [id number] 08:58:00 Test Item Value Reference Range Interpretation Comments Color (test code = Light-Yellow UCOLR) Clarity (test code = Clear UCLAR) Glucose (test code = NEGATIVE NEGATIVE N UGLUC) Bilirubin (test code NEGATIVE NEGATIVE N = UBILI) Ketones (test code = NEGATIVE NEGATIVE N UKET) Specific [place] 1.020 1.005-1.030 A (test code = USPGR) Blood (test code = NEGATIVE NEGATIVE N UBLD) PH (test code = UPH) 6.0 4.5-8.0 A Protein (test code = NEGATIVE NEGATIVE N UPROT) Urobilinogen (test 0.2 See_Comment N [Automat ed message] code = U UROB) The system [facility] generated this result transmit michael [...] = SQEP) STAT LAB CBC WITH AUTO [id number] 08:52:00 Test Item Value Reference Range Interpretation [...] IG%) 0.3 % 0.0-0.4 STAT LAB CHEM [id number] 08:52:00 Test Item Value Reference Range Interpretation [...] mg/dl 0.6-1.3 STAT LAB CBC WITH AUTO [id number] 02:37:00 Test Item Value Reference Range Interpretation [...] A value of 55 was entered by [id number] on 01/10/2021 02:3 7 Lymphocytes (test 43 % 13-42 H No previou s value code = LYMPH) was reported. A value of 43 was entered by [id number] on 01/10/2021 02:3 7 Monocytes (test 1 % 4-14 L No previous value code = MONOS) was reported. A value of 1 was entered by [id number] on 01/10/2021 02:3 7 Basophils (test 1 % 0-1 No previous value code = BASO) was reported. A value of 1 was entered by [id number] on 01/10/2021 02:3 7 Normal Morphology Normal WBC RBC Normal RBC \\T\\ N No pre vious value (test code = NRCM) and Platelet WBC was repor michael. A Morphology Morphology,Normal value of N ormal WBC RBC and WBC RBC and Platelet Platelet Morphology Morphology was entered by [id number] on 01/10/2021 02:3 7 AMYLASE, [id number] 02:14:00 Test Item Value Reference Range Interpretation Comments Amylase (test code = AMYL) 46 U/L 25-115 [id number] 02:14:00 Test Item Value Reference Range Interpretation Comments Lipase (test code = LIPA) 115 U/L 73-393 URINALYSIS WITH [id number] 02:07:00 Test Item Value Reference Range Interpretation Comments Color (test code = Light-Yellow UCOLR) Clarity (test code = Cloudy UCLAR) Glucose (test code = NEGATIVE NEGATIVE N UGLUC) Bilirubin (test code NEGATIVE NEGATIVE N = UBILI) Ketones (test code = NEGATIVE NEGATIVE N UKET) Specific [place] 1.025 1.005-1.030 A (test code = USPGR) Blood (test code = NEGATIVE NEGATIVE N UBLD) PH (test code = UPH) 6.0 4.5-8.0 A Protein (test code = NEGATIVE NEGATIVE N UPROT) Urobilinogen (test 0.2 See_Comment N [Automat ed message] code = U UROB) The system [facility] generated this result transmit michael reference range [...] (test code = NSE) STAT LAB CHEM [id number] 01:50:00 Test Item Value Reference Range Interpretation [...] 0.6 mg/dl 0.6-1.3 - CT ABD PELVIS W/[id number] 03:46:00 [facility] [place] : 1985 Sex: F FAX: Annemarie Tesfaye [phone] [place]: St: REG Name: LAUREN BETH [facility] : 1985 Age/S: 35/F [address] Unit: [id number] Loc: [place] [address] 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 at 7926 Reported and signed by: Neo Huber MD PAGE 1 Signed Report (CONTINUED) FAX: Annemarie Tesfaye [phone] [place]: St: REG--------- Name: DIEUDONNE BETHDAVIDE [place] [facility] : 1985 Age/S: 35/F [address] Unit: [id number] Loc: [place] [address] Phys: Annemarie Tesfaye NP Acct: [id number] Dis Date: Status: REG ER PHONE #: [phone] Exam Date: 12/13/20205 FAX #: [phone] Reason: DIFFUSE ABD PAIN WORSE RLQ, HX APPY, ROSE EXAMS: CPT CODE: [id number] CT ABD PELVIS W/CONT 02387 <Continued> CC: Annemarie Tesfaye NP Technologist: PAMELA Gonzálestt; JAIROAdela SANCHEZ JR Trnscrd Dt/Tm: 12/13/2020 (0343) [email or web address] Orig Print D/T: S: 12/13/2020 (6539 PAGE 2 Signed ReportCOMPREHENSIVE METABOLIC [id number] 03:32:00 Test Item Value Reference Range Interpretation [...] U/L 38-126 N (test code = ALKP) [id number] 03:32:00 Test Item Value Reference Range Interpretation Comments LIPASE (test code = LIP) 82 U/L 23-300 N BEDSIDE [id number] 03:24:00 Test Item Value Reference Range Interpretation Comments BEDSIDE CREATININE (test code = 0.60 mg/dL 0.51-1.19 N CREATBED) CBC W/AUTO [id number] 03:14:00 Test Item Value Reference Range Interpretation [...] 0.0-0.1 N UA RFLX MICR CULT IF [id number] 02:59:00 Test Item Value Reference Range Interpretation [...] OF URINE: VOIDEDSTAT LAB CBC WITH AUTO [id number] 15:12:00 Test Item Value Reference Range Interpretation [...] A value of 63 was entered by SBTweepsMap 82 on 12/12/2020 15:12 Bands (test code [...] 82 on 12/12/2020 15:12 STAT LAB CHEM [id number] 14:08:00 Test Item Value Reference Range Interpretation [...] mg/dl 0.6-1.3 L STAT LAB URINALYSIS WITHOUT [id number] 12:08:00 Test Item Value Reference Range Interpretation Comments Color (test code = Light-Yellow UCOLR) Clarity (test code = Cloudy UCLAR) Glucose (test code = NEGATIVE NEGATIVE N UGLUC) Bilirubin (test code NEGATIVE NEGATIVE N = UBILI) Ketones (test code = NEGATIVE NEGATIVE N UKET) Specific [place] 1.015 1.005-1.030 A (test code = USPGR) Blood (test code = NEGATIVE NEGATIVE N UBLD) PH (test code = UPH) 7.0 4.5-8.0 A Protein (test code = NEGATIVE NEGATIVE N UPROT) Urobilinogen (test 0.2 See_Comment N [Automat ed message] code = U UROB) The system [facility] generated this result transmit michael [...] = 0.4 mg/dl 0.0-1.1 IBIL) URINALYSIS WITH [id number] 08:31:00 Test Item Value Reference Range Interpretation Comments Color (test code = Light-Yellow UCOLR) Clarity (test code = Clear UCLAR) Glucose (test code = NEGATIVE NEGATIVE N UGLUC) Bilirubin (test code NEGATIVE NEGATIVE N = UBILI) Ketones (test code = NEGATIVE NEGATIVE N UKET) Specific [place] 1.020 1.005-1.030 A (test code = USPGR) Blood (test code = NEGATIVE NEGATIVE N UBLD) PH (test code = UPH) 6.5 4.5-8.0 A Protein (test code = NEGATIVE NEGATIVE N UPROT) Urobilinogen (test 0.2 See_Comment N [Automat ed message] code = U UROB) The system [facility] generated this result transmit michael [...] (test code = SQEP) STAT LAB CHEM [id number] 08:27:00 Test Item Value Reference Range Interpretation [...] 0.6-1.3 L STAT LAB CBC WITH AUTO [id number] 08:26:00 Test Item Value Reference Range Interpretation [...] 0.0-0.4 XR ABDOMEN 2 VIEWS FLAT / [id number] 08:18:50 [facility]Name: LAUREN BETH : 1985 Sex: FProcedure: XR ABDOMEN 2 VIEWS FLAT / UPRIGHTOrder Date: 11/21/2020 7:43 AMOrdering Provider: REHAN Farrellinical Indication: [id number]: Abdominal painComparison: Nov 14 2020Findings:Bowel gas pattern is non-obstructive. No pneumoperitoneum.There is moderate volume stool burden.Surgical clips in the right upper quadrant of the abdomen.Impression:Nonobstructive bowel gas pattern.This final reportwas electronically signed by Dr Silver Benitez MD :13 AMDictated By: GLORY BENITEZKDate: 11/21/2020 08:13CT ABDOMEN/PELVIS W/O [id number] 14:11:31 [facility]Name: LAUREN BETH : 1985 Sex: FProcedure: CT ABDOMEN/PELVIS W/O CONTRASTOrder Date: 11/14/2020 1:22 PMOrdering Provider: BILLY ACOSTA .Clinical Indication: [id number]: Right flank painComparison: Renal ultrasound November 08, [...] By: FARZAD DEWITTDate: 11/14/2020 14:05STAT LAB , [id number] 13:31:00 Test Item Value Reference Range Interpretation Comments (Urine) (test code = Negative PREGU) ONLY AVAILABLE [id number] LAB CHEM [id number] 11:09:00 Test Item Value Reference Range Interpretation [...] mg/dl 0.6-1.3 L STAT LAB URINALYSIS WITHOUT [id number] 11:08:00 Test Item Value Reference Range Interpretation Comments Color (test code = Yellow Lt. Yellow A UCOLR) Clarity (test code = Clear UCLAR) Glucose (test code = Negative Negative N UGLUC) Bilirubin (test code Negative Negative N = UBILI) Ketones (test code = Negative Negative N UKET) Specific [place] 1.025 1.005-1.030 A (test code = USPGR) Blood (test code = Trace-intact Negative A UBLD) PH (test code = UPH) 6.0 4.5-8.0 A Protein (test code = Negative Negative N UPROT) Urobilinogen (test 0.2 See_Comment N [Automat ed message] code = U UROB) The system [facility] generated this result transmit michael reference range : 0.2. The refere nce range was not u sed to interpret th is result as normal/abnormal . Nitrite (test code = Negative Negative N UNITR) Leukocyte Esterase Negative Negative N (test code = ULEUK) STAT LAB CBC WITH AUTO [id number] 11:05:00 Test Item Value Reference Range Interpretation [...] code = IG%) 0.4 % 0.0-0.4 CULTURE, [id number] 08:43:00Specimen: Urine SpecimensCollected: 11/08/2020 09:59 Status: Final Last Updated: 11/09/2020 08:43 CULTURE (Final) (Final) Few Mixed Body Gabriela Isolated No Pathogens IsolatedUS RENAL & BLADDER (KIDNEYS) 2020-11-08 12:00:28 [facility] ([facility])Name: LAUREN BETH : 1985 Sex: FProcedure: US [...] AMDictated By: GLORY BENITEZKDate: 11/08/2020 11:54URINALYSIS WITH [id number] 10:58:00 Test Item Value Reference Range Interpretation Comments Color (test code = Yellow UCOLR) Clarity (test code = Clear UCLAR) Glucose (test code = NEGATIVE NEGATIVE N UGLUC) Bilirubin (test code = NEGATIVE NEGATIVE N UBILI) Ketones (test code = NEGATIVE NEGATIVE N UKET) Specific [place] (test 1.030 1.005-1.030 A code = USPGR) Blood (test code = NEGATIVE NEGATIVE N UBLD) PH (test code = UPH) 6.0 4.5-8.0 A Protein (test code = NEGATIVE NEGATIVE N UPROT) Urobilinogen (test code 0.2 See_Comment N [Au tomated message] = U UROB) The system [employer] generated this result transmitted ref erence range: [...] 0-10 A (test code = SQEP) CULTURE, [id number] 08:13:00ER 17Specimen: Urine SpecimensCollected: 11/01/2020 01:10 Status: Final Last Updated: 11/02/2020 08:13 (1) ER 17 CULTURE (Final) (Final) Few Mixed Body Gabriela Isolated No Pathogens IsolatedXR ABD SERIES W/PA [id number] 03:48:37 [facility] ([facility]/[place])Name: LAUREN BETH [...] mg/dl 0.0-1.1 IBIL) ER 17STAT LAB CHEM [id number] 01:57:00 Test Item Value Reference Range Interpretation [...] 0.5 mg/dl 0.6-1.3 L ER 17URINALYSIS WITH [id number] 01:56:00 Test Item Value Reference Range Interpretation Comments Color (test code = Light-Yellow UCOLR) Clarity (test code = Clear UCLAR) Glucose (test code = 50 NEGATIVE A UGLUC) Bilirubin (test code NEGATIVE NEGATIVE N = UBILI) Ketones (test code = NEGATIVE NEGATIVE N UKET) Specific [place] 1.025 1.005-1.030 A (test code = USPGR) Blood (test code = NEGATIVE NEGATIVE N UBLD) PH (test code = UPH) 6.0 4.5-8.0 A Protein (test code = TRACE NEGATIVE A UPROT) Urobilinogen (test 0.2 See_Comment N [Automat ed message] code = U UROB) The system [facility] generated this result transmit michael [...] SQEP) ER 17STAT LAB CBC WITH AUTO [id number] 01:55:00 Test Item Value Reference Range Interpretation [...] code = 0.1 mg/dl 0.0-1.1 IBIL) er [id number] 01:26:00 Test Item Value Reference Range Interpretation Comments Lipase (test code = LIPA) 154 U/L 73-393 ER 10STAT LAB CHEM [id number] 01:15:00 Test Item Value Reference Range Interpretation [...] 0.6 mg/dl 0.6-1.3 er 10STAT LAB , [id number] 01:14:00 Test Item Value Reference Range Interpretation Comments (Urine) (test code = Negative PREGU) er 10STAT LAB CBC WITH AUTO [id number] 01:13:00 Test Item Value Reference Range Interpretation [...] = IG%) 0.9 % 0.0-0.4 H er [id number] 04:21:00 Test Item Value Reference Range Interpretation [...] code = 0.1 mg/dl 0.0-1.1 IBIL) AMYLASE, [id number] 04:21:00 Test Item Value Reference Range Interpretation Comments Amylase (test code = AMYL) 47 U/L 25-115 URINALYSIS WITH [id number] 03:06:00 Test Item Value Reference Range Interpretation Comments Color (test code = Light-Yellow UCOLR) Clarity (test code = Clear UCLAR) Glucose (test code = NEGATIVE NEGATIVE N UGLUC) Bilirubin (test code NEGATIVE NEGATIVE N = UBILI) Ketones (test code = TRACE NEGATIVE A UKET) Specific [place] 1.025 1.005-1.030 A (test code = USPGR) Blood (test code = NEGATIVE NEGATIVE N UBLD) PH (test code = UPH) 5.5 4.5-8.0 A Protein (test code = NEGATIVE NEGATIVE N UPROT) Urobilinogen (test 0.2 See_Comment N [Automat ed message] code = U UROB) The system [employer] generated this result transmit michael reference range [...] (test code = NSE) STAT LAB CHEM [id number] 02:51:00 Test Item Value Reference Range Interpretation [...] mg/dl 0.6-1.3 STAT LAB CBC WITH AUTO [id number] 02:50:00 Test Item Value Reference Range Interpretation [...] XR ABDOMEN 1 VIEW (KUB)2020-09-12 01:51:21 [facility])Name: LAUREN BETH : 1985 [...] report was electronically signed by Celestino Allen MDon 2020 1:50 AM CDT.Dictated By: CELESTINO ALLENDate: 09/12/2020 01:50STAT LAB CBC WITH AUTO [id number] 01:29:00 Test Item Value Reference Range Interpretation [...] IG%) 0.4 % 0.0-0.4 STAT LAB CHEM [id number] 01:28:00 Test Item Value Reference Range Interpretation [...] = CREA) 0.6 mg/dl 0.6-1.3 URINALYSIS WITH [id number] 03:04:00 Test Item Value Reference Range Interpretation Comments Color (test code = Yellow UCOLR) Clarity (test code = Clear UCLAR) Glucose (test code = 100 NEGATIVE A UGLUC) Bilirubin (test code = NEGATIVE NEGATIVE N UBILI) Ketones (test code = TRACE NEGATIVE A UKET) Specific [place] (test >=1.030 1.005-1.030 A code = USPGR) Blood (test code = NEGATIVE NEGATIVE N UBLD) PH (test code = UPH) 5.5 4.5-8.0 A Protein (test code = NEGATIVE NEGATIVE N UPROT) Urobilinogen (test code 0.2 See_Comment N [Au tomated message] = U UROB) The system [employer] generated this result transmitted ref erence range: [...] code = 3+ None Seen,Trace A UBACT) [id number] 03:01:00 Test Item Value Reference Range Interpretation [...] ( 4 - SerumAlbumin)] EGFR if >60 Georgian (test code mL/min/1.73m\\ = EGFRAA) S\\2 EGFR if Non- >60 Estimate d Glomerular Georgian (test code mL/min/1.73m\\ Filtrat ion Rate (eGFR) [...] and management of c hronic kidney failure. [id number] 03:01:00 Test Item Value Reference Range Interpretation Comments Lipase (test code = LIPA) 145 U/L 73-393 STAT LAB TEST, Serum [id number] 02:48:00 Test Item Value Reference Range Interpretation Comments (Serum) (test code = Negative PREGS) STAT LAB CBC WITH AUTO [id number] 02:28:00 Test Item Value Reference Range Interpretation [...] code = 0.1 mg/dl 0.0-1.1 IBIL) ER [id number] 02:59:00 Test Item Value Reference Range Interpretation Comments Lipase (test code = LIPA) 167 U/L 73-393 ER 16URINALYSIS WITH [id number] 02:48:00 Test Item Value Reference Range Interpretation Comments Color (test code = UCOLR) Yellow Clarity (test code = UCLAR) Clear Glucose (test code = UGLUC) NEGATIVE NEGATIVE N Bilirubin (test code = UBILI) NEGATIVE NEGATIVE N Ketones (test code = UKET) NEGATIVE NEGATIVE N Specific [place] (test code = >=1.030 1.005-1.030 A USPGR) [...] None Seen,Trace A ER 16CT ABDOMEN/PELVIS W/O [id number] 02:34:52ER 16 R/O KIDNEY STONE [facility] ([facility])Name: LAUREN BETH : [id number] Sex: FPROCEDURE INFORMATION:Exam: CT Abdomen And Pelvis [...] By: HOLLIS FERRERADate: 08/06/2020 02:34STAT LAB CHEM [id number] 02:29:00 Test Item Value Reference Range Interpretation [...] L ER 16STAT LAB CBC WITH AUTO [id number] 02:29:00 Test Item Value Reference Range Interpretation [...] = IG%) 0.7 % 0.0-0.4 H ER [id number] 09:31:00 Test Item Value Reference Range Interpretation [...] IBIL) XR ABDOMEN 2 VIEWS FLAT / [id number] 09:22:50 [facility])Name: LAUREN BETH : [id number] Sex: FProcedure: XR ABDOMEN 2 VIEWS FLAT / UPRIGHTOrder Date: 07/19/2020 8:40 AMOrdering Provider: REHAN COTTON .Clinical Indication: [id number]: Abdominal painComparison: July 05, 2020Findings:Postoperative change consisting [...] By: FARZAD DEWITT.Date: 07/19/2020 09:17STAT LAB CHEM [id number] 09:10:00 Test Item Value Reference Range Interpretation [...] 0.6-1.3 L STAT LAB CBC WITH AUTO [id number] 09:09:00 Test Item Value Reference Range Interpretation [...] % 0.0-0.4 H STAT LAB URINALYSIS WITHOUT [id number] 09:08:00 Test Item Value Reference Range Interpretation Comments Color (test code = UCOLR) Yellow Lt. Yellow A Clarity (test code = UCLAR) Clear Glucose (test code = UGLUC) Negative Negative N Bilirubin (test code = UBILI) Negative Negative N Ketones (test code = UKET) Negative Negative N Specific [place] (test code = USPGR) >=1.030 1.005-1.030 A Blood (test code = UBLD) Negative Negative N PH (test code = UPH) 6.0 4.5-8.0 A Protein (test code = UPROT) Negative Negative N Urobilinogen (test code = U UROB) 0.2 >0.2 N Nitrite (test code = UNITR) Negative Negative N Leukocyte Esterase (test code = Negative Negative N ULEUK) CULTURE, [id number] 08:00:00Specimen: Urine SpecimensCollected: 07/05/2020 03:00 Status: Final Last Updated: 07/07/2020 08:00 CULTURE (Final) (Final) No Growth After 48 HoursXR ABDOMEN 1 VIEW (KUB)2020-07-05 04:07:04 [facility] ([facility])Name: LAUREN BETH : [id number] Sex: FPROCEDURE INFORMATION:Exam: XR Abdomen, 1 ViewExam [...] By: OSKAR CRANEte: 07/05/2020 04:06STAT LAB , [id number] 03:54:00 Test Item Value Reference Range Interpretation Comments (Urine) (test code = Negative PREGU) STAT LAB CHEM [id number] 03:53:00 Test Item Value Reference Range Interpretation [...] 0.6-1.3 L STAT LAB CBC WITH AUTO [id number] 03:51:00 Test Item Value Reference Range Interpretation [...] = IG%) 0.4 % 0.0-0.4 URINALYSIS WITH [id number] 03:33:00 Test Item Value Reference Range Interpretation Comments Color (test code = UCOLR) Yellow Clarity (test code = UCLAR) Clear Glucose (test code = UGLUC) NEGATIVE NEGATIVE N Bilirubin (test code = UBILI) Small NEGATIVE A Ketones (test code = UKET) TRACE NEGATIVE A Specific [place] (test code = USPGR) 1.020 1.005-1.030 A [...] UBACT) Trace None Seen,Trace N CT ABDOMEN/PELVIS W/[id number] 16:44:35 [facility])Name: LAUREN BETH : [id number] Sex: FProcedure: CT ABDOMEN/PELVIS W/CONTRASTOrder date: 06/07/2020 3:47 PMOrdering Provider: REHAN Farrellinical Indication: [id number]: Left flank painComparison: 06/07/20Technique: Multiple axial helical [...] PMDictated By: WILEY VELÁZQUEZDate: 06/07/2020 16:38URINALYSIS WITH [id number] 15:22:00 Test Item Value Reference Range Interpretation Comments Color (test code = UCOLR) Yellow Clarity (test code = UCLAR) Clear Glucose (test code = UGLUC) NEGATIVE NEGATIVE N Bilirubin (test code = UBILI) NEGATIVE NEGATIVE N Ketones (test code = UKET) NEGATIVE NEGATIVE N Specific [place] (test code = USPGR) 1.020 1.005-1.030 A [...] Trace None Seen,Trace N STAT LAB CHEM [id number] 15:10:00 Test Item Value Reference Range Interpretation [...] 0.6-1.3 L STAT LAB CBC WITH AUTO [id number] 15:08:00 Test Item Value Reference Range Interpretation [...] ABD/ PELVIS W/O CON (RENAL STONE)2020-06-07 14:56:05 [facility])Name: LAUREN BETH : [id number] Sex: FProcedure: CT ABD/ PELVIS W/O CON (RENAL STONE)Order date: 06/07/2020 2:18 PMOrdering Provider: REHAN Farrellinical Indication: [id number]: Left flank painComparison: 05/31/20TECHNIQUE: Using a helical [...] By: WILEY VELÁZQUEZDate: 06/07/2020 14:49CT ABDOMEN/PELVIS W/O [id number] 12:27:07NPO 4 hours. Do not withhold meds hyst [facility] ([facility])Name: LAUREN BETH : [id number] Sex: FProcedure: CT ABDOMEN/PELVIS W/O CONTRASTOrder Date: 05/31/2020 10:25 AMOrdering Provider: Zoltan MCBRIDEClinical Indication: [id number]: Pain radiating to right flankComparison: March 20, [...] 116 U/L 73-393 STAT LAB URINALYSIS WITHOUT [id number] 10:59:00 Test Item Value Reference Range Interpretation Comments Color (test code = UCOLR) Light yellow Lt. Yellow A Clarity (test code = UCLAR) Clear Glucose (test code = UGLUC) Negative Negative N Bilirubin (test code = UBILI) Negative Negative N Ketones (test code = UKET) Negative Negative N Specific [place] (test code = 1.025 1.005-1.030 A USPGR) Blood (test code = UBLD) Negative Negative N PH (test code = UPH) 6.0 4.5-8.0 A Protein (test code = UPROT) Negative Negative N Urobilinogen (test code = U 0.2 >0.2 N UROB) Nitrite (test code = UNITR) Negative Negative N Leukocyte Esterase (test code = Negative Negative N ULEUK) STAT LAB CBC WITH AUTO [id number] 10:58:00 Test Item Value Reference Range Interpretation [...] 0.5 % 0.0-0.4 H STAT LAB CHEM [id number] 10:53:00 Test Item Value Reference Range Interpretation [...] L XR ABDOMEN 1 VIEW (KUB)2020-04-25 21:02:16 [facility] ([facility])Name: LAUREN BETH [facility]: [id number] Sex: FPROCEDURE INFORMATION:Exam: XR Abdomen, 1 ViewExam [...] code = UKET) Negative Negative N Specific [place] (test code = 1.020 1.005-1.030 A USPGR) [...] Seen,Trace A STAT LAB CBC WITH AUTO [id number] 18:55:00 Test Item Value Reference Range Interpretation [...] of Platel et clumping was entered by [id number] on 04/25/2020 18:5 5 STAT LAB CHEM [id number] 18:17:00 Test Item Value Reference Range Interpretation [...] CREA) 0.4 mg/dl 0.6-1.3 L CULTURE, ANAEROBE [id number] 15:20:00FIRST DRAW = 1 aerobic and 1 anerobic CultureSpecimen: BloodCollected: 03/20/2020 18:30 Status: Final Last Updated: 03/26/2020 15:19 (1) FIRST DRAW = 1 aerobic and 1 anerobic Culture CULTURE (Final) (Final) No Growth After 5 DaysCULTURE, [id number] 15:20:00FIRST DRAW = 1 aerobic and 1 anerobic CultureSpecimen: BloodCollected: 03/20/2020 18:30 Status: Final Last Updated: 03/26/2020 15:19 (1) FIRST DRAW = 1 aerobic and 1 anerobic Culture CULTURE (Final) (Final) No Growth After 5 DaysCT ABDOMEN/PELVIS W/[id number] 21:46:442 weeks s/p adhesolysis. Vomiting/pain/fever. Please do CT with PO and IV contrastProcedures: CT ABDOMEN/PELVIS W/CONTRASTExam Date: 03/20/2020 6:04 PMOrdering Physician: REHAN Farrellinical Indication: [id number]: Abdominal painComparison: CT abdomen/pelvis, 02/25/20TECHNIQUE: Spiral multislice [...] (test code = 0.3 mg/dl 0.0-1.1 IBIL) [id number] 19:24:00 Test Item Value Reference Range Interpretation Comments Lipase (test code = LIPA) 69 U/L 73-393 L [id number] 19:24:00 Test Item Value Reference Range Interpretation Comments Magnesium (test code = MG) 2.0 mg/dl 1.6-2.6 STAT LAB CHEM [id number] 18:43:00 Test Item Value Reference Range Interpretation [...] 0.5 mg/dl 0.6-1.3 L STAT LAB LACTIC [id number] 18:42:00 Test Item Value Reference Range Interpretation Comments LACTATE (test code = 2.50 mmol/l 0.90-1.70 HH R&RB sy rene hassan rn LAC) @1842 STAT LAB CBC WITH AUTO [id number] 18:41:00 Test Item Value Reference Range Interpretation [...] PLMNT MIDLINE NO PORT > 5 y/o [id number] 13:21:10Procedure: SP PERC PLMNT MIDLINE NO PORT [...] secured to the skin in the usual fashion.Regulatory Affairs Specialist images were recorded and stored in [...] lection of specimen. XR ABD SERIES W/PA [id number] 17:33:07Procedure: XR ABD SERIES W/PA CXROrder Date: [...] BENITEZKDate: 03/13/2020 17:26STAT LAB CBC WITH AUTO [id number] 17:23:00 Test Item Value Reference Range Interpretation [...] entered by [id number] on 03/13/2020 17:23 [id number] 17:23:00 Test Item Value Reference Range Interpretation [...] = 0.4 mg/dl 0.0-1.1 IBIL) URINALYSIS WITH [id number] 16:54:00 Test Item Value Reference Range Interpretation Comments Color (test code = UCOLR) Yellow Lt. Yellow A Clarity (test code = UCLAR) Clear Glucose (test code = UGLUC) Negative Negative N Bilirubin (test code = UBILI) Negative Negative N Ketones (test code = UKET) Negative Negative N Specific [place] (test code = >=1.030 1.005-1.030 A USPGR) [...] 4+ None Seen,Trace A STAT LAB CHEM [id number] 16:37:00 Test Item Value Reference Range Interpretation [...] PLMNT MIDLINE NO PORT > 5 y/o [id number] 12:23:44Procedure: SP PERC PLMNT MIDLINE NO PORT [...] Dr Silver Benitez MD 03/02/202012:17 PMDictated By: Maggie BENITEZte: 03/02/2020 12:17CORONAVIRUS 2018 (IN HOUSE)2020-03-01 18:48:00 Test [...] recommend recol lection of specimen. PT AND [id number] 11:51:00 Test Item Value Reference Range Interpretation Comments Protime (test code 9.8 seconds 9.5-12.1 = PT) INR (test code = 0.9 0.9-1.1 INR results are intended INR) ONLY to monitor Oral Anticoagulant t herapy in stablized patie nts. The INR Therapeutic Range is 2.0 - 3.0 Patie nts with a mechanical he art, the INR Range is 2. 5 - 3.5 [id number] 11:51:00 Test Item Value Reference Range Interpretation [...] BE NOTED ON THE RE PORT. CULTURE, [id number] 08:08:00Specimen: Urine RandomCollected: 02/25/2020 11:27 Status: Final Last Updated: 02/27/2020 08:08 CULTURE (Final) (Final) No Growth After 48 [id number] 05:38:00 Test Item Value Reference Range Interpretation [...] 0.5-1.3 code = CREA) EGFR if >60 Georgian (test code mL/min/1.73m\\ = EGFRAA) S\\2 EGFR if Non- >60 Estimate d Glomerular Georgian (test code mL/min/1.73m\\ Filtrat ion Rate (eGFR) [...] 0.04 mIU/L 0.35-3.74 L CBC WITH AUTO [id number] 05:18:00 Test Item Value Reference Range Interpretation [...] recommend recol lection of specimen. URINALYSIS WITH [id number] 12:56:00 Test Item Value Reference Range Interpretation Comments Color (test code = UCOLR) Yellow Lt. Yellow A Clarity (test code = UCLAR) Slightly Cloudy Glucose (test code = UGLUC) Negative Negative N Bilirubin (test code = UBILI) Negative Negative N Ketones (test code = UKET) Negative Negative N Specific [place] (test code = >=1.030 1.005-1.030 A USPGR) [...] code = UBACT) Trace None Seen,Trace N [id number] 12:52:00 Test Item Value Reference Range Interpretation [...] = 0.3 mg/dl 0.0-1.1 IBIL) CT ABDOMEN/PELVIS W/[id number] 12:42:41NPO 4 hours. Do not withhold meds [...] WILEY VELÁZQUEZDate: 02/25/2020 12:36 STAT LAB CHEM [id number] 12:07:00 Test Item Value Reference Range Interpretation [...] 0.6-1.3 L STAT LAB CBC WITH AUTO [id number] 12:05:00 Test Item Value Reference Range Interpretation [...] % 0.0-0.4 STAT LAB CBC WITH AUTO [id number] 03:15:00 Test Item Value Reference Range Interpretation [...] 0.6 % 0.0-0.4 H STAT LAB CHEM [id number] 02:55:00 Test Item Value Reference Range Interpretation [...] JORGE LUIS WHITEDate: 02/25/2020 02:45STAT LAB , [id number] 01:12:00 Test Item Value Reference Range Interpretation Comments (Urine) (test code = Negative PREGU) STAT LAB URINALYSIS WITHOUT [id number] 01:11:00 Test Item Value Reference Range Interpretation Comments Color (test code = UCOLR) Yellow Lt. Yellow A Clarity (test code = UCLAR) Clear Glucose (test code = UGLUC) Negative Negative N Bilirubin (test code = UBILI) Negative Negative N Ketones (test code = UKET) Negative Negative N Specific [place] (test code = USPGR) >=1.030 1.005-1.030 A [...] (KUB)Order date: 02/10/2020 4:01 AMOrdering Provider: JUAN MENSAHClinical Indication: Abdominal painComparison: NoneFindings:There is no small [...] By: JORGE LUIS WHITEDate: 02/10/2020 05:31URINALYSIS WITH [id number] 05:10:00 Test Item Value Reference Range Interpretation Comments Color (test code = UCOLR) Yellow Lt. Yellow A Clarity (test code = UCLAR) Clear Glucose (test code = UGLUC) >=1000 Negative A Bilirubin (test code = UBILI) Negative Negative N Ketones (test code = UKET) Negative Negative N Specific [place] (test code = 1.015 1.005-1.030 A USPGR) [...] = UBACT) None Seen None Seen,Trace N [id number] 04:42:00 Test Item Value Reference Range Interpretation [...] 0.2 mg/dl 0.0-1.1 IBIL) STAT LAB CHEM [id number] 04:27:00 Test Item Value Reference Range Interpretation [...] CREA) 0.6 mg/dl 0.6-1.3 STAT LAB , [id number] 04:24:00 Test Item Value Reference Range Interpretation Comments (Urine) (test code = Negative PREGU) STAT LAB CBC WITH AUTO [id number] 04:22:00 Test Item Value Reference Range Interpretation [...] % 0.0-0.[address] L SPINE W/O [id number] 12:46:24Procedure: CT L SPINE W/O CONTRASTOrder date: 01/25/2020 11:46 AMOrdering Provider: DONALD Healyinical Indication: [id number]: Low back painComparison: NoneTechnique: Using a multislice scanner, sequential axial imaging was obtained ofthe lumbar spine. 2D sagittal and coronal reconstructed images were obtained.This exam was performed according to the our departmental dose-optimizationprogram which includes automated exposure control, adjustment of the mA and/orkV according to patient size and/or use of iterative reconstruction techniques.Findings:There is no acute fracture.Sagittal and coronal alignment is normal.Vertebral body heights and intervertebral disc spaces are normal.There is no osseousspinal canal nor neural foraminal narrowing.There is no lytic or sclerotic lesion.There is no paraspinal hematoma.The prevertebral soft tissues are normal.IMPRESSION1. Negative CT scan of the lumbar spine.This final report was electronically signed by Dr Wiley Velázquez MD 01/25/202012:39 PMDictated By:WILEY VELÁZQUEZDate: 01/25/2020 12:39HEPATIC FUNCTION PANEL (LIVER)2019-12-09 05:49:00 [...] code = 0.3 mg/dl 0.0-1.1 IBIL) ER [id number] 05:49:00 Test Item Value Reference Range Interpretation Comments Lipase (test code = LIPA) 105 U/L 73-393 ER 7STAT LAB CHEM [id number] 05:06:00 Test Item Value Reference Range Interpretation [...] L ER 7STAT LAB CBC WITH AUTO [id number] 05:04:00 Test Item Value Reference Range Interpretation [...] code = IG%) 0.4 % 0.0-0.4 ER [id number] 02:23:00 Test Item Value Reference Range Interpretation [...] ( 4 - SerumAlbumin)] EGFR if >60 Georgian (test code mL/min/1.73m\\ = EGFRAA) S\\2 EGFR if Non- >60 Estimate d Glomerular Georgian (test code mL/min/1.73m\\ Filtrat ion Rate (eGFR) [...] of c hronic kidney failure. URINALYSIS WITH [id number] 02:11:00 Test Item Value Reference Range Interpretation Comments Color (test code = UCOLR) Yellow Lt. Yellow A Clarity (test code = UCLAR) Clear Glucose (test code = UGLUC) Negative Negative N Bilirubin (test code = UBILI) Negative Negative N Ketones (test code = UKET) Trace Negative A Specific [place] (test code = USPGR) >=1.030 1.005-1.030 A [...] Seen,Trace A STAT LAB CBC WITH AUTO [id number] 02:03:00 Test Item Value Reference Range Interpretation [...] = IG%) 0.4 % 0.0-0.4 CT ABDOMEN/PELVIS [id number] 22:43:00NPO 4 hours. Do not withhold meds [...] 201910:42 PM CDT.Dictated By: JOSUÉ MCGHEEDate: 10/07/2019 22:[id number] 22:05:00 Test Item Value Reference Range Interpretation [...] 0.5-1.3 code = CREA) EGFR if >60 Georgian (test code mL/min/1.73m\\ = EGFRAA) S\\2 EGFR if Non- >60 Estimate d Glomerular Georgian (test code mL/min/1.73m\\ Filtrat ion Rate (eGFR) [...] management of c hronic kidney failure. AMYLASE, [id number] 22:05:00 Test Item Value Reference Range Interpretation Comments Amylase (test code = AMYL) 43 U/L 25-115 [id number] 22:05:00 Test Item Value Reference Range Interpretation Comments Lipase (test code = LIPA) 95 U/L 73-393 URINALYSIS WITH [id number] 21:49:00 Test Item Value Reference Range Interpretation Comments Color (test code = UCOLR) Yellow Lt. Yellow A Clarity (test code = UCLAR) Clear Glucose (test code = UGLUC) Negative Negative N Bilirubin (test code = UBILI) Negative Negative N Ketones (test code = UKET) 15 Negative A Specific [place] (test code = USPGR) >=1.030 1.005-1.030 A [...] Seen,Trace A STAT LAB CBC WITH AUTO [id number] 21:45:00 Test Item Value Reference Range Interpretation [...] IG%) 0.4 % 0.0-0.4 STAT LAB , [id number] 21:36:00 Test Item Value Reference Range Interpretation Comments (Urine) (test code = Negative PREGU) CT ABDOMEN/PELVIS W/O [id number] 03:56:36PROCEDURE INFORMATION:Exam: CT Abdomen And Pelvis Without [...] 3:56 AM CDT.Dictated By: AMY ORDOÑEZDate: 09/20/2019 03:[id number] 02:07:00 Test Item Value Reference Range Interpretation [...] ( 4 - SerumAlbumin)] EGFR if >60 Georgian (test code mL/min/1.73m\\ = EGFRAA) S\\2 EGFR if Non- >60 Estimate d Glomerular Georgian (test code mL/min/1.73m\\ Filtrat ion Rate (eGFR) [...] failure. XR ABDOMEN 2 VIEWS FLAT / [id number] 02:01:15PROCEDURE INFORMATION:Exam: XR Abdomen, 2 ViewsExam date [...] CDT.Dictated By: AMY ORDOÑEZDate: 09/20/2019 02:01URINALYSIS WITH [id number] 01:56:00 Test Item Value Reference Range Interpretation Comments Color (test code = UCOLR) Yellow Lt. Yellow A Clarity (test code = UCLAR) Clear Glucose (test code = UGLUC) >=1000 Negative A Bilirubin (test code = UBILI) Negative Negative N Ketones (test code = UKET) Trace Negative A Specific [place] (test code = USPGR) >=1.030 1.005-1.030 A [...] Seen,Trace A STAT LAB CBC WITH AUTO [id number] 01:38:00 Test Item Value Reference Range Interpretation [...] IG%) 0.5 % 0.0-0.[address] ABDOMEN/PELVIS W/[id number] 04:23:30PROCEDURE INFORMATION:Exam: CT Abdomen And Pelvis With [...] 20194:23 AM CDT.Dictated By: SETH MEDINADate: 08/17/2019 04:[id number] 03:34:00 Test Item Value Reference Range Interpretation Comments Lipase (test code = LIPA) 67 U/L 73-393 L [id number] 03:34:00 Test Item Value Reference Range Interpretation [...] ( 4 - SerumAlbumin)] EGFR if >60 Georgian (test code mL/min/1.73m\\ = EGFRAA) S\\2 EGFR if Non- >60 Estimate d Glomerular Georgian (test code mL/min/1.73m\\ Filtrat ion Rate (eGFR) [...] kidney failure. STAT LAB CBC WITH AUTO [id number] 03:19:00 Test Item Value Reference Range Interpretation [...] IG%) 0.7 % 0.0-0.4 H URINALYSIS WITH [id number] 03:10:00 Test Item Value Reference Range Interpretation Comments Color (test code = UCOLR) YELLOW Clarity (test code = UCLAR) CLEAR Glucose (test code = UGLUC) NEGATIVE NEGATIVE N Bilirubin (test code = UBILI) NEGATIVE NEGATIVE N Ketones (test code = UKET) NEGATIVE NEGATIVE N Specific [place] (test code = 1.025 1.005-1.030 A USPGR) [...] 1+ None Seen,Trace A STAT LAB , [id number] 03:03:00 Test Item Value Reference Range Interpretation Comments (Urine) (test code = Negative PREGU) ONLY AVAILABLE 8A-92CICH1 [id number] 20:37:00 Test Item Value Reference Range Interpretation [...] code = CREA) 0.6 mg/dl 0.6-1.2 ED2 [id number] 20:28:00 Test Item Value Reference Range Interpretation [...] = MPV) 7.1 fL 8.0-11.0 A CULTURE, [id number] 08:44:55qsy0Zaknjkjf: Urine SpecimensCollected: 07/12/2019 15:00 Status: Final Last Updated: 2019 08:44 (1) err7 Culture Result (Final) (Final) Moderate Mixed Body Gabriela Isolated No Pathogens Isolated No Further Workup PerformedFL LIMITED [id number] 17:53:41Procedures: FL LIMITED IVPExam Date: 07/12/2019 3:21 PMOrdering Physician: REHAN Farrellinical Indication: [id number]: Flank painComparison: CT abdomen/pelvis, 05/17/19Findings: Frontal radiographs [...] MD07/12/2019 5:47 PMDictated By: ELMER PHAMDate: 07/12/2019 17:[id number] 15:56:00 Test Item Value Reference Range Interpretation Comments Lipase (test code = LIPA) 97 U/L 73-393 [id number] FUNCTION PANEL (LIVER)2019-07-12 15:56:00 Test Item Value [...] (test code = 0.2 mg/dl 0.0-1.1 IBIL) akl3JQWJQDJDRS WITH [id number] 15:51:00 Test Item Value Reference Range Interpretation Comments Color (test code = UCOLR) YELLOW Clarity (test code = UCLAR) CLEAR Glucose (test code = UGLUC) NEGATIVE NEGATIVE N Bilirubin (test code = UBILI) NEGATIVE NEGATIVE N Ketones (test code = UKET) NEGATIVE NEGATIVE N Specific [place] (test code = 1.020 1.005-1.030 A USPGR) [...] code = UBACT) 4+ None Seen,Trace A jcq8CQGU LAB CHEM [id number] 15:09:00 Test Item Value Reference Range Interpretation [...] (test code = CREA) 0.6 mg/dl 0.6-1.3 cjt2BRUJ LAB CBC WITH AUTO [id number] 15:08:00 Test Item Value Reference Range Interpretation [...] = IG%) 0.4 % 0.0-0.4 err7CT ABDOMEN/PELVIS W/[id number] 16:33:46NPO 4 hours. Do not withhold medsProcedures: CT ABDOMEN/PELVIS W/CONTRASTExam Date: 05/17/2019 1:31 PMOrdering Physician: MERLE LYNNEClinical Indication: [id number]: Abdominal painComparison: CT abdomen/pelvis, 10/10/19TECHNIQUE: Spiral multislice scanning was obtained from the [...] MD05/17/2019 4:27 PMDictated By: ELMER PHAMDate: 05/17/2019 16:[id number] 16:20:00 Test Item Value Reference Range Interpretation Comments Lipase (test code = LIPA) 70 U/L 73-393 L STAT LAB CHEM [id number] 15:24:00 Test Item Value Reference Range Interpretation [...] 0.5 mg/dl 0.6-1.3 L STAT LAB LACTIC [id number] 15:23:00 Test Item Value Reference Range Interpretation Comments LACTATE (test code = LAC) 1.39 mmol/l 0.90-1.70 STAT LAB CBC WITH AUTO [id number] 15:21:00 Test Item Value Reference Range Interpretation [...] IG%) 0.5 % 0.0-0.4 H URINALYSIS WITH [id number] 15:08:00 Test Item Value Reference Range Interpretation Comments Color (test code = UCOLR) YELLOW Clarity (test code = UCLAR) CLEAR Glucose (test code = UGLUC) NEGATIVE NEGATIVE N Bilirubin (test code = UBILI) NEGATIVE NEGATIVE N Ketones (test code = UKET) NEGATIVE NEGATIVE N Specific [place] (test code = 1.025 1.005-1.030 A USPGR) [...] None Seen,Trace A CT ANGIO HEAD W/WO [id number] 16:28:5720 g Cathlon Above the Antecubital or higher requiredProcedure: CT ANGIO HEAD W/WO CONTRASTOrder Date: 05/12/2019 3:30 PMOrdering Provider: REHAN Farrellinical Indication: [id number]: HeadacheComparison: NoneTechnique: Using a helical scanner, sequential axial imaging of the brain wasobtained before and after the administration of the contrast medium. At anindependent workstation, 3-D reconstructions of the koi of [place] wereobtained.This examwas performed according to [...] By: FARZAD DEWITTDate: 05/12/2019 16:22 CT ABDOMEN/PELVIS W/[id number] 14:36:05NPO 4 hours. Do not withhold meds [...] Dr Silver Benitez MD 04/09/20192:29 PMDictated By: Chante BENITEZ: 04/09/2019 14:29CB WITH AUTO [id number] 09:02:00 Test Item Value Reference Range Interpretation [...] % 0.0-0.4 H IG%) CBC WITH AUTO [id number] 09:14:00 Test Item Value Reference Range Interpretation [...] (test code = 0.4 % 0.0-0.4 IG%) [id number] 09:12:00 Test Item Value Reference Range Interpretation [...] 0.5-1.3 code = CREA) EGFR if >60 Georgian (test code mL/min/1.73m\\ = EGFRAA) S\\2 EGFR if Non- >60 Estimate d Glomerular Georgian (test code mL/min/1.73m\\ Filtrat ion Rate (eGFR) [...] PLMNT MIDLINE NO PORT > 5 y/o W/[id number] 16:11:23Procedure: SP PERC PLMNT MIDLINE NO PORT [...] PMDictated By: WILEY VELÁZQUEZDate: 04/07/2019 16:05CT ABDOMEN/PELVIS W/[id number] 22:50:40PROCEDURE INFORMATION:Exam: CT Abdomen and pelvis with [...] 10:50 PM CDT.Dictated By: ELMER PHAMDate: 04/04/2019 22:[id number] 21:22:00 Test Item Value Reference Range Interpretation [...] 0.3 mg/dl 0.0-1.1 IBIL) STAT LAB CHEM [id number] 21:07:00 Test Item Value Reference Range Interpretation [...] 0.6 mg/dl 0.6-1.3 STAT LAB URINALYSIS WITHOUT [id number] 21:05:00 Test Item Value Reference Range Interpretation Comments Color (test code = UCOLR) Yellow Lt. Yellow A Clarity (test code = UCLAR) Slightly Cloudy Glucose (test code = UGLUC) 100 Negative A Bilirubin (test code = UBILI) Negative Negative N Ketones (test code = UKET) Negative Negative N Specific [place] (test code = >=1.030 1.005-1.030 A USPGR) Blood (test code = UBLD) Negative Negative N PH (test code = UPH) 5.5 4.5-8.0 A Protein (test code = UPROT) Negative Negative N Urobilinogen (test code = U 0.2 >0.2 N UROB) Nitrite (test code = UNITR) Negative Negative N Leukocyte Esterase (test code Negative Negative N = ULEUK) STAT LAB CBC WITH AUTO [id number] 21:04:00 Test Item Value Reference Range Interpretation [...] 0.5 % 0.0-0.4 H STAT LAB , [id number] 21:04:00 Test Item Value Reference Range Interpretation Comments (Urine) (test code = Negative PREGU) ONLY AVAILABLE [id number] 16:05:00 Test Item Value Reference Range Interpretation Comments Sodium (test code = CANCELED mmol/l The r eleased value NA) 141 was cancele d by [id number] on 04/04/2019 16:0 5 Potassium (test code CANCELED mmol/l The released value = K) 3.9 was cancele d by [id number] on 04/04/2019 16:0 5 CO2 (test code = CANCELED mmol/l The rele ased value CO2) 23 was canceled by [id number] on 04/04/2019 16:0 5 Chloride (test code CANCELED mmol/l The r eleased value = CL) 108 was cancele d by [id number] on 04/04/2019 16:0 5 Glucose (test code = CANCELED mg/dl The r eleased value GLU) 96 was canceled by [id number] on 04/04/2019 16:0 5 Calcium (test code = CANCELED mg/dl The r eleased value CALC) 8.8 was cancele d by [id number] on 04/04/2019 16:0 5 BUN (test code = CANCELED mg/dl The relea sed value BUN) 11 was canceled by [id number] on 04/04/2019 16:0 5 Creatinine (test CANCELED mg/dl code = CREA) HISTOLOGY [id number] 11:08:00 [address] [place], [place] [address]Ziadk: [phone] XZOP #: [id number] MedicalDirector: Seth Valdez M.D.Surgical Pathology Consultation ReportPatient Name: LAUREN BETH Case #: [id number] Med. Rec. #:[id number] [id number]: [facility]2019 : 1985(Age:33) Received: 03/23/2019 [...] greatest dimension. The cystsarefilled with clearserous fluid. Regulatory Affairs Specialist sections of the ovaryandpossible fallopian tube [...] of endometriosis areseen. Billing Fee Code(s): A; 91368- US TRANSVAGINAL W/[id number] 16:45:00 Patient Name: ADELIA BETH Unit No: [id number] EXAMS: CPT CODE: [id number] US TRANSVAGINAL W/PELVIS 88570 CLINICAL HISTORY: Right lower quadrant pain. Status [...] MD Technologist: Dipesh Miranda RDMS, RVT Probe: [id number] Trnscrbd D/ (4243) t.[email or web address].YOS Orig Print D/T: S: 03/10/2019 (7235) [facility] NAME: ADELIA BETH Radiology Department PHYS: SUE. - Hilaria Calderón [address] : 1985 AGE: 33 SEX: F [place] [address] LOC: ALONDRA PHONE #: [phone] EXAM DATE: 03/10/2019 STATUS: REG ER FAX #: [phone] RAD NO: Page 1 Signed Report Patient Name: ADELIA BETH Unit No: [id number] EXAMS: CPT CODE: [id number] US TRANSVAGINAL W/PELVIS 95994 <Continued> [facility] NAME: ADELIA BETH Radiology Department PHYS: SUE. - Hilaria Calderón [address] : 1985 AGE: 33 SEX: [address] [place] [address] LOC: DayanaraERS PHONE #: [phone] EXAM DATE: 03/10/2019 STATUS: REG ER FAX #: [phone] RAD NO: Page 2 Signed Report- US TRANSVAGINAL W/[id number] 16:45:00 Patient Name: LAUREN BETH Unit No: [id number] EXAMS: CPT CODE: [id number] US TRANSVAGINAL W/PELVIS 78545 CLINICAL HISTORY: Right lower quadrant pain. Status [...] MD Technologist: Dipesh Miranda RDMS, T Probe: [id number] Trnscrbd D/ (1645) AtilioS Orig Print D/T: S: 03/10/2019 (3498) [facility] NAME: LAUREN BETH Radiology Department PHYS: Hilaria [address] : 1985 AGE: 33 SEX: F [place], [place] [address] LOC: ALONDRA PHONE #:[phone] EXAM DATE: 03/10/2019 STATUS: DEP ER FAX #: [phone] RAD NO: [id number] Page 1 Signed Report Patient Name: LAUREN BETH Unit No: [id number] EXAMS: CPT CODE: [id number] US TRANSVAGINAL W/PELVIS 60081 (Continued) [facility] NAME: LAUREN BETH Radiology Department PHYS: GUTAL. - StephaneHilaria [address] : 1985 AGE: 33 SEX: F [place], [place] [address]YBAW NO: [id number] LOC: ALONDRA PHONE #: [phone] EXAM DATE: 03/10/2019 STATUS: DEP ER FAX #: [phone] RAD NO: [id number] Page 2 Signed Report- US PELVIS [id number] 16:45:00 Patient Name: ADELIA BETH Unit No: [id number] EXAMS: CPT CODE: [id number] US PELVIS COMPLETE 56248 CLINICAL HISTORY: Right lower quadrant pain. Status [...] Dipesh Miranda RDMS, RVT Probe: Trnscrbd D/ (2305) Ro Calixto D/T: S: 03/10/2019 (5838) [facility] NAME: ADELIA BETH Radiology Department PHYS: GUTAL. - StephaneHilaria [address] : 1985 AGE: 33 SEX: F [place], [place] [address] LOC: DayanaraERS PHONE #: [phone] EXAM DATE: STATUS: REG ER FAX #: [phone] RAD NO: Page 1 Signed Report Patient Name: ADELIA BETH Unit No: [id number] EXAMS: CPT CODE: [id number] US PELVIS COMPLETE 93490 <Continued> [facility]: ADELIA BETH Radiology Department PHYS: BEBECONCHIS.Hilaria Diaz [address] : 1985 AGE: 33 SEX: [place] [address] LOC: ALONDRA PHONE #: [phone] EXAM DATE: 03/10/2019 STATUS: REG ER FAX #: [phone] RAD NO: Page 2 Signed Report- US PELVIS [id number] 16:45:00 Patient Name: LAUREN BETH Unit No: [id number] EXAMS: CPT CODE: [id number] US PELVIS COMPLETE 04900 CLINICAL HISTORY: Right lower quadrant pain. Status [...] Dipesh Miranda RDMS, RVT Probe: Trnscrbd D/ (1645) janel.[email or web address] Orig Print D/T: S: 03/10/2019 (1648) [facility] NAME: LAUREN BETH Radiology Department PHYS: GUTAL. - Conchis Calderónondra [address] : 1985 AGE: 33 SEX: F [place] [address] LOC: DayanaraERS PHONE #: [phone] EXAM DATE: 03/10/2019 STATUS: DEP ER FAX #: [phone] RAD NO: [id number] Page 1 Signed Report Patient Name: LAUREN BETH Unit No: [id number] EXAMS: CPT CODE: [id number] US PELVIS COMPLETE 50349 (Continued) [facility] NAME: LAUREN BETH Radiology Department PHYS: GUTAL. - Conchis Caledrónondra [address] : 1985 AGE: 33 SEX: F [place] [address] LOC: DayanaraERS PHONE #: [phone] EXAM DATE: 03/10/2019 STATUS: DEP ER FAX #: [phone] RAD NO: [id number] Page 2 Signed ReportCBC W/AUTO DIFF 2019-03-10 [...] = PLTMR) UA RFLX MICR CULT IF [id number] 16:07:00 Test Item Value Reference Range Interpretation [...] A Indication for culture: Suprapubic PainUR HCG [id number] 16:07:00 Test Item Value Reference Range Interpretation [...] culture: Suprapubic PainUA RFLX MICR CULT IF [id number] 16:04:00 Test Item Value Reference Range Interpretation [...] EPIU) Indication for culture: Suprapubic PainUR HCG [id number] 16:04:00 Test Item Value Reference Range Interpretation [...] culture: Suprapubic PainUA RFLX MICR CULT IF [id number] 15:55:00 Test Item Value Reference Range Interpretation [...] RARE-FEW Indication for culture: Suprapubic PainUR HCG [id number] 15:55:00 Test Item Value Reference Range Interpretation [...] and tested. Indication for culture: Suprapubic PainED2 [id number] 01:18:00 Test Item Value Reference Range Interpretation [...] MPV) 6.9 fL 8.0-11.0 A ED2 URINE [id number] 00:55:00 Test Item Value Reference Range Interpretation Comments Color (test code = UCOLR) Yellow Lt. Yellow A Clarity (test code = UCLAR) Clear Glucose (test code = UGLUC) NEGATIVE NEGATIVE N Bilirubin (test code = UBILI) NEGATIVE NEGATIVE N Ketones (test code = UKET) NEGATIVE NEGATIVE N Specific [place] (test code = USPGR) 1.030 1.005-1.030 A Blood (test code = UBLD) NEGATIVE NEGATIVE N PH (test code = UPH) 6.0 4.5-8.0 A Protein (test code = UPROT) Trace NEGATIVE A Urobilinogen (test code = U UROB) 0.2 >0.2 N Nitrite (test code = UNITR) NEGATIVE NEGATIVE N Leukocyte Esterase (test code = NEGATIVE NEGATIVE N ULEUK) ED2 , [id number] 00:54:00 Test Item Value Reference Range Interpretation Comments (Urine) (test code = Negative PREGU) [id number] 13:07:00 Test Item Value Reference Range Interpretation Comments Lipase (test code = LIPA) 106 U/L 73-[address] ABDOMEN/PELVIS W/[id number] 12:24:12Procedures: ED2 CT ABDOMEN/PELVIS W/CONTRASTExam Date: 02/07/2019 10:11 AMOrdering Physician: WYATT Downsinical Indication: [id number]: Epigastric painComparison: CT abdomen/pelvis, 01/27/19TECHNIQUE: Spiral multislice [...] 12:17 PMDictated By: ELMER PHAMDate: 02/07/2019 12:17ED2 [id number] 10:48:00 Test Item Value Reference Range Interpretation [...] = TP) 7.6 gm/dl 6.4-8.1 ED2 URINE [id number] 10:45:00 Test Item Value Reference Range Interpretation Comments Color (test code = UCOLR) Yellow Lt. Yellow A Clarity (test code = UCLAR) Sl Cloudy Glucose (test code = UGLUC) NEGATIVE NEGATIVE N Bilirubin (test code = UBILI) NEGATIVE NEGATIVE N Ketones (test code = UKET) NEGATIVE NEGATIVE N Specific [place] (test code = 1.025 1.005-1.030 A USPGR) Blood (test code = UBLD) NEGATIVE NEGATIVE N PH (test code = UPH) 5.5 4.5-8.0 A Protein (test code = UPROT) NEGATIVE NEGATIVE N Urobilinogen (test code = U UROB) 0.2 >0.2 N Nitrite (test code = UNITR) NEGATIVE NEGATIVE N Leukocyte Esterase (test code = NEGATIVE NEGATIVE N ULEUK) ED2 , [id number] 10:45:00 Test Item Value Reference Range Interpretation Comments (Urine) (test code = Negative PREGU) ED2 [id number] 10:44:00 Test Item Value Reference Range Interpretation [...] MPV) 6.8 fL 8.0-11.[address] ABDOMEN/PELVIS W/[id number] 12:29:19s/p hysterectomy; rlq pain Procedure: CT ABDOMEN/PELVIS W/CONTRASTOrder Date: 01/27/2019 10:57 AMOrdering Provider: DR LEXUS CASTREJON ACOSTAClinical Indication: [id number]: Abdominal painComparison: September 30, 2018TECHNIQUE:The abdomen and [...] code = UKET) NEGATIVE NEGATIVE N Specific [place] (test code = USPGR) <=1.005 1.005-1.030 A [...] code = UBACT) Trace None Seen,Trace N [id number] 11:49:00 Test Item Value Reference Range Interpretation Comments Lipase (test code = LIPA) 91 U/L 73-393 AMYLASE, [id number] 11:49:00 Test Item Value Reference Range Interpretation Comments Amylase (test code = AMYL) 45 U/L 25-115 STAT LAB CHEM [id number] 11:25:00 Test Item Value Reference Range Interpretation [...] 0.6-1.3 L STAT LAB CBC WITH AUTO [id number] 11:23:00 Test Item Value Reference Range Interpretation [...] IG%) 0.6 % 0.0-0.4 H US PELVIS [id number] 07:55:25h/o complex right ovarian cystsProcedure: Pelvic ultrasound.CLINICAL [...] 0.1 mg/dl 0.0-1.1 IBIL) STAT LAB CHEM [id number] 02:41:00 Test Item Value Reference Range Interpretation [...] 0.6-1.3 L STAT LAB CBC WITH AUTO [id number] 02:39:00 Test Item Value Reference Range Interpretation [...] IG%) 0.5 % 0.0-0.4 H URINALYSIS WITH [id number] 02:37:00 Test Item Value Reference Range Interpretation Comments Color (test code = UCOLR) YELLOW Clarity (test code = UCLAR) CLEAR Glucose (test code = UGLUC) 500 NEGATIVE A Bilirubin (test code = UBILI) NEGATIVE NEGATIVE N Ketones (test code = UKET) TRACE NEGATIVE A Specific [place] (test code = USPGR) >=1.030 1.005-1.030 A [...] = UBACT) 2+ None Seen,Trace A CULTURE, [id number] 07:39:00CULTURE RIGHT ABDOMEN WOUND CARE DEPT Specimen: [...] 09/30/2018 8:28 PMOrdering Provider: DIMAS Haskinsinical Indication: [id number]: Acute chest painComparison: May 13, 2017Findings:Cardiac size [...] By: FARZAD DEWITTDate: 10/01/2018 05:08CT ABDOMEN/PELVIS W/O [id number] 00:42:26NPO 4 hours. Do not withhold medsEXAM:CT [...] 0.5 mg/dl 0.0-1.1 IBIL) STAT LAB CHEM [id number] 21:10:00 Test Item Value Reference Range Interpretation [...] 0.6-1.3 L STAT LAB CBC WITH AUTO [id number] 21:09:00 Test Item Value Reference Range Interpretation [...] = IG%) 0.3 % 0.0-0.4 OVARY W/WO TUBE,MUJ-[id number] 12:44:00 RUN DATE: 09/04/18 [facility] PAGE 1 RUN TIME: 1454 Specimen Inquiry RUN USER: INTERFACE -PATIENT: LAUREN BETH LOC: [place] U #: [id number] AGE/SX: 33/F [facility] RE09[facility]02[facility]18REG DR: Elmer Flores : 87 BED: A DIS: 09/03/18 STATUS: DIS [place]y TLOC: SPEC #: [id number] RECD: 09/02/18 STATUS: KWAME GARCIA #: [id number] MELISSA: 09/02/18- SUBM DR: Elmer Flores Meenu III ENTERED: 09/03/18 SP TYPE: MACYOLGAAdela PIERCE DR: ORDERED: LEVEL IV CODES: [id number] - OVARY, NOS PROCEDURES: LEVEL IV (Incomplete) TISSUES: OVARY, NOS - RIGHT OVARIAN CYST CLINICAL HISTORY 33 year old, acute pelvic pain (wpd) FINAL DIAGNOSIS Right ovarian cyst, excision: - benign simple cyst of ovary Tissue code 1 CPT code(s): 38347 [facility] 09/04/18 GROSS DESCRIPTION ANATOMIC SOURCE OF [...] with multiple yellow-orange, centrally hemorrhagic corpora lutea. Regulatory Affairs Specialist sections are submitted as A and B. [...] NORMAL NORMAL code = PLTMR) CHEMISTRY 7 [id number] 14:15:00 Test Item Value Reference Range Interpretation [...] CA) 9.2 mg/dL 8.4-10.2 N CBC W/AUTO [id number] 13:42:00 Test Item Value Reference Range Interpretation [...] NORMAL NORMAL code = PLTMR) US INTRAVAGINAL [id number] 12:35:09Procedure: Pelvic ultrasound.CLINICAL INDICATION: Pelvic pain. Status [...] VELÁZQUEZDate: 09/01/2018 12:28STAT LAB CBC WITH AUTO [id number] 11:31:00 Test Item Value Reference Range Interpretation [...] 09/01/2018 11:31 ONLY AVAILABLE 8A-12MNCT ABDOMEN/PELVIS W/O [id number] 11:11:01MLP C Procedure: CT ABDOMEN/PELVIS W/O CONTRASTOrder Date: 09/01/2018 9:28 AMOrdering Provider: CHIN Guilleninical Indication: [id number]: Abdominal pain. Left lower quadrant painComparison: 12/24/2017TECHNIQUE:CT [...] AMDictatedBy: GLORY BENITEZKDate: 09/01/2018 11:04STAT LAB CHEM [id number] 10:26:00 Test Item Value Reference Range Interpretation [...] L ONLY AVAILABLE 8A-12MNSTAT LAB URINALYSIS WITHOUT [id number] 09:59:00 Test Item Value Reference Range Interpretation Comments Color (test code = UCOLR) Yellow Lt. Yellow A Clarity (test code = UCLAR) Clear Glucose (test code = UGLUC) NEGATIVE Negative A Bilirubin (test code = UBILI) NEGATIVE Negative A Ketones (test code = UKET) NEGATIVE Negative A Specific [place] (test code = USPGR) 1.015 1.005-1.030 A Blood (test code = UBLD) NEGATIVE Negative A PH (test code = UPH) 7.0 4.5-8.0 A Protein (test code = UPROT) NEGATIVE Negative A Urobilinogen (test code = U UROB) 0.2 >0.2 N Nitrite (test code = UNITR) NEGATIVE Negative A Leukocyte Esterase (test code = NEGATIVE Negative A ULEUK) ONLY AVAILABLE 8A-12MNUS INTRAVAGINAL [id number] 13:26:23Procedure: Pelvic ultrasound.CLINICAL INDICATION: PELVIC PAIN: Pain-Pelvic. [...] VELÁZQUEZDate: 05/13/2018 13:20STAT LAB CBC WITH AUTO [id number] 12:22:00 Test Item Value Reference Range Interpretation [...] 0.0-0.4 IG%) STAT LAB CBC WITH AUTO [id number] 11:54:00 Test Item Value Reference Range Interpretation [...] IG%) ONLY AVAILABLE 8A-12MNSTAT LAB URINALYSIS WITHOUT [id number] 11:25:00 Test Item Value Reference Range Interpretation Comments Color (test code = UCOLR) Yellow Lt. Yellow A Clarity (test code = UCLAR) Clear Glucose (test code = UGLUC) NEGATIVE Negative A Bilirubin (test code = UBILI) NEGATIVE Negative A Ketones (test code = UKET) NEGATIVE Negative A Specific [place] (test code = USPGR) 1.020 1.005-1.030 A Blood (test code = UBLD) NEGATIVE Negative A PH (test code = UPH) 7.0 4.5-8.0 A Protein (test code = UPROT) NEGATIVE Negative A Urobilinogen (test code = U UROB) 0.2 >0.2 N Nitrite (test code = UNITR) NEGATIVE Negative A Leukocyte Esterase (test code = NEGATIVE Negative A ULEUK) ONLY AVAILABLE 8A-12MNSTAT LAB , [id number] 11:25:00 Test Item Value Reference Range Interpretation Comments (Urine) (test code = Negative PREGU) ONLY AVAILABLE 8A-12MNSTAT LAB CHEM [id number] 11:23:00 Test Item Value Reference Range Interpretation [...] mg/dl 0.6-1.3 L ONLY AVAILABLE 8A-12MNUS INTRAVAGINAL [id number] 12:50:53Procedure: Pelvic ultrasound.CLINICAL INDICATION: Right adnexal mass. [...] PMDictated By: WILEY VELÁZQUEZDate: 12/24/2017 12:50URINALYSIS WITH [id number] 10:22:00 Test Item Value Reference Range Interpretation Comments Color (test code = UCOLR) Yellow Clarity (test code = UCLAR) Clear Glucose (test code = UGLUC) NEGATIVE NEGATIVE N Bilirubin (test code = UBILI) NEGATIVE NEGATIVE N Ketones (test code = UKET) NEGATIVE NEGATIVE N Specific [place] (test code = USPGR) 1.025 1.005-1.030 A [...] = UBACT) Trace None Seen,Trace N LIPASE, [id number] 10:05:00 Test Item Value Reference Range Interpretation Comments Lipase (test code = LIPA) 40 U/L 8-223 [id number] 10:05:00 Test Item Value Reference Range Interpretation [...] ( 4 - SerumAlbumin)] EGFR if >60 [place] (test code mL/min/1.73m\\ = EGFRAA) S\\2 EGFR if Non- >60 Estimate d Glomerular [place] (test code mL/min/1.73m\\ Filtrat ion Rate (eGFR) [...] MD 12/24/20179:32 AMDictated By: WILEY VELÁZQUEZDate: 12/24/2017 09:38[facility] WITH AUTO [id number] 09:26:00 Test Item Value Reference Range Interpretation [...] code = UKET) NEGATIVE NEGATIVE N Specific [place] (test code = 1.020 1.005-1.030 A USPGR) [...] UBACT) None Seen None Seen,Trace N er [id number] 03:07:00 Test Item Value Reference Range Interpretation [...] ( 4 - SerumAlbumin)] EGFR if >60 [place] (test code mL/min/1.73m\\ = EGFRAA) S\\2 EGFR if Non- >60 Estimate d Glomerular Georgian (test code mL/min/1.73m\\ Filtrat ion Rate (eGFR) [...] of c hronic kidney failure. er 16LIPASE, [id number] 03:07:00 Test Item Value Reference Range Interpretation Comments Lipase (test code = LIPA) 61 U/L 8-223 er 16CBC WITH AUTO [id number] 03:05:00 Test Item Value Reference Range Interpretation [...] 0.0-0.4 IG%) er 16XR CHEST 2 PA [id number] 19:56:04Procedure: XR CHEST 2 PA LATERALExam date: 05/13/2017 3:53 PMOrder[address] Provider: DR ASA BLOOMClinical Indication: fatigue, Chest painComparison: March 15, 2016Findings:Cardiomediastinal silhouette is within normal limits.The lungs are clear.No pleural effusion or pneumothorax. Osseous structures are nonacute.No evidence of active tuberculosis.Impression:No acute cardiopulmonary process.This final report was electronically signed by Dr Wiley Velázquez MD 05/13/20177:49 PMDictated By: WILEY VELÁZQUEZDate: 05/13/2017 19:[id number] 16:53:00 Test Item Value Reference Range Interpretation [...] ( 4 - SerumAlbumin)] EGFR if >60 Georgian (test code mL/min/1.73m\\ = EGFRAA) S\\2 EGFR if Non- >60 Estimate d Glomerular Georgian (test code mL/min/1.73m\\ Filtrat ion Rate (eGFR) [...] NOTED ON THE RE PORT. URINALYSIS WITH [id number] 18:25:00 Test Item Value Reference Range Interpretation Comments Color (test code = UCOLR) YELLOW Clarity (test code = UCLAR) CLEAR Glucose (test code = UGLUC) NEGATIVE NEGATIVE N Bilirubin (test code = UBILI) NEGATIVE NEGATIVE N Ketones (test code = UKET) NEGATIVE NEGATIVE N Specific [place] (test code = 1.025 1.005-1.030 A USPGR) [...] (test code = 0.1 mg/dl 0.0-1.1 IBIL) [id number] 18:21:00 Test Item Value Reference Range Interpretation [...] mg/dl 8.4-10.2 = CALC) EGFR if >60 Georgian (test code mL/min/1.73m\\ = EGFRAA) S\\2 EGFR if Non- >60 Estimate d Glomerular Georgian (test code mL/min/1.73m\\ Filtrat ion Rate (eGFR) [...] c hronic kidney failure. CBC WITH AUTO [id number] 18:04:00 Test Item Value Reference Range Interpretation [...]
[2022-03-20 23:26] LABS: Absolute Lymphocytes (CBC) 2.4 K/uL (0.7-4.9); Hematocrit 35.4 % (36.0-45.0); Lymphocytes % 31.7 % (15.3-44.8); MCV 86.6 fL (80-100); MPV 6.9 fL (7.6-11.3); RBC Red Blood Cell Count 4.09 M/uL (3.86-4.86)
[2022-03-20 23:44] LABS: Albumin 3.1 g/dL (3.4-5.0); Bilirubin Total 0.1 mg/dL (0.2-1.0); Potassium 3.3 mmol/L (3.5-5.1); Protein, Total 6.9 g/dL (6.4-8.2)
[2022-03-20] MEDS ORDERED: PROMETHAZINE INJ 25 MG/ML AMP ONE (23:55)
[2022-03-20] MEDS ORDERED: FAMOTIDINE 20 MG/2 ML VIAL IV ONE (23:56)
[2022-03-20] MEDS ORDERED: MORPHINE 4 MG/ML SYR ONE (23:56)
[2022-03-20] MEDS ORDERED: NA CHLORIDE 0.9% 1,000 ML ONE (23:57)
[2022-03-21] MEDS ORDERED: MEPERIDINE HCL 50 MG/ML ONE (00:08)
--- NOTE | 2022-03-21 00:49 | ER ---
Nurse's Notes [facility] Name: Hong Pace Age: 36 yrs Sex: Female : 1985 Arrival Date: 03/20/2022 Time: 22:40 Bed 6 Private MD: Diagnosis: Lower abdominal pain, unspecified;Nausea with vomiting, unspecified Presentation: 03/20 22:41 Chief complaint: Patient states: pt reports having lots of surgeries for endometriosis as6 and has a build up of scar tissue and lots of abdominal pain. pt was recently seen in ER for same issue, pt saw PCP and has a surgery scheduled for next week but reports the pain was too much and needed to be seen today". Coronavirus screen: At this time, the client does not indicate any symptoms associated with coronavirus-19. Ebola Screen: No symptoms or risks identified at this time. Initial Sepsis Screen: Does the patient meet any 2 criteria? HR > 90 bpm. Does the patient have a suspected source of infection? No. Patient's initial sepsis screen is negative. Risk Assessment: Do you want to hurt yourself or someone else? Patient reports no desire to harm self or others. Onset of symptoms was March 20, 2022 at 20:30. 22:41 Method Of Arrival: Ambulatory as6 22:41 Acuity: [place] 3 as6 Triage Assessment: 22:47 General: Appears uncomfortable, Behavior is cooperative, anxious. Pain: Complains of as6 pain in abdomen. Respiratory: Respiratory effort is even, unlabored. GI: Reports lower abdominal pain, upper abdominal pain, nausea, vomiting. Historical: - Allergies: 22:47 Motrin; as6 22:47 Toradol; as6 - Home Meds: 22:47 levothyroxine 175 mcg cap 1 cap once daily [Active]; Premarin 1.25 mg Oral tab 1 tab as6 [Active]; - PMHx: 22:47 Endometriosis of vagina; melanoma; as6 - PSHx: 22:47 section; Cholecystectomy; hysterectomy; Ovary removal; Thyroidectomy; as6 - Immunization history:: Client reports having NOT received the Covid vaccine. - Social history:: Smoking status: Patient reports the use of cigarette tobacco products, smokes one-half pack cigarettes per day. Vital Signs: 22:41 BP 145 / 97; Pulse 144; Resp 18 S; Temp 98.4(O); Pulse Ox 97% on R/A; Weight 108.86 kg as6 (R); Height 5 ft. 4 in. (162.56 cm) (R); Pain 9/10; 03/21 00:30 BP 121 / 83; Pulse 102; Resp 18 S; Pulse Ox 96% ; Pain 10/10; ha1 03/20 22:41 Body Mass Index 41.20 (108.86 kg, 162.56 cm) as6 ED Course: 03/20 22:40 Patient arrived in ED. dt4 22:41 Rosalino Tucker DO is Attending Physician. ms3 22:47 Triage completed. as6 22:47 Arm band placed on. as6 23:37 Rachel Valencia RN is Primary Nurse. ha1 03/21 00:32 Inserted saline lock: 22 gauge in left forearm, using aseptic technique. Blood kd3 collected. Missed attempt(s): 22 gauge in left in right antecubital area. Administered Medications: 03/20 22:55 CANCELLED (Physician Discretion): Zofran (Ondansetron) 4 mg IVP once; over 2 minutes ms3 23:56 Not Given (Patient Refused): morphine 4 mg IVP once over 4 mins ms3 03/21 00:04 Drug: Phenergan (promethazine) 25 mg Route: IM; Site: left vastus lateralis; ha1 00:58 Follow up: Response: No adverse reaction; Pain is decreased kd3 00:31 Drug: NS 0.9% 1000 ml Route: IV; Rate: 1 bolus; Site: left forearm; kd3 00:59 Follow up: IV Status: Completed infusion; IV Intake: 500ml kd3 00:31 Drug: Demerol (meperidine) 50 mg Route: IVP; Site: left forearm; kd3 00:58 Follow up: Response: No adverse reaction; Pain is decreased kd3 00:32 Drug: Pepcid (famotidine) 20 mg Route: IVP; Site: right antecubital; kd3 00:59 Follow up: Response: No adverse reaction kd3 00:58 Drug: HYDROcodone-acetaminophen 5 mg-325 mg 1 tabs Route: PO; kd3 00:58 Follow up: Response: No adverse reaction kd3 Intake: 00:59 IV: 500ml; Total: 500ml. kd3 Outcome: 00:49 Discharge ordered by ms3 00:59 Patient left the ED. kd3 Signatures: Rosalino Tucker DO DO ms3 Uday Smith RN RN as6 Oralia Varma RN RN kd3 Rachel Valencia, [place] RN ha1 Lorena Joseph dt4
--- NOTE | 2022-03-21 00:49 | EDPHYS ---
Physician Documentation [facility] Name: Hong Pace Age: 36 yrs Sex: Female : 1985 Arrival Date: 03/20/2022 Time: 22:40 Bed 6 Private MD: ED Physician Rosalino Tucker HPI: 03/21 00:23 This 36 yrs old Female presents to ER via Ambulatory with complaints of Abdominal Pain. ms3 00:23 36-year-old female with past medical history of endometriosis, kidney stones presents ms3 for lower abdominal pain, nausea, vomiting. Patient states she sees pain management for her lower abdominal pain. Patient notes she was seen in the emergency department 2 nights ago. Patient states she saw her prestidigitator, Dr. Flores and surgery scheduled for next week. Patient states this is a typical presentation of her endometriosis adhesion pain. Patient rates the pain a 10/10 and describes pain as sharp. Patient denies alleviating or inciting factors.. Historical: - Allergies: 03/20 22:47 Motrin; as6 22:47 Toradol; as6 - Home Meds: 22:47 levothyroxine 175 mcg cap 1 cap once daily [Active]; Premarin 1.25 mg Oral tab 1 tab as6 [Active]; - PMHx: 22:47 Endometriosis of vagina; melanoma; as6 - PSHx: 22:47 section; Cholecystectomy; hysterectomy; Ovary removal; Thyroidectomy; as6 - Immunization history:: Client reports having NOT received the Covid vaccine. - Social history:: Smoking status: Patient reports the use of cigarette tobacco products, smokes one-half pack cigarettes per day. ROS: 03/21 00:23 Constitutional: Negative for fever, and chills. Neck: Negative for injury, pain, and ms3 swelling, Cardiovascular: Negative for chest pain, and palpitations. Respiratory: Negative for shortness of breath, cough, wheezing, and pleuritic chest pain, MS/Extremity: Negative for injury and deformity. Abdomen/GI: Positive for abdominal pain. All other systems are negative. Exam: 00:23 Constitutional: This is a well developed, well nourished patient who is awake, alert, ms3 and in no acute distress. Head/Face: Normocephalic, atraumatic. Neck: Trachea midline, no cervical lymphadenopathy. Supple, full range of motion without nuchal rigidity, or vertebral point tenderness. No Meningismus. Chest/axilla: Normal chest wall appearance and motion. Nontender with no deformity. Cardiovascular: Regular rate and rhythm with a normal S1 and S2. No gallops, murmurs, or rubs. Normal PMI, no JVD. No pulse deficits. Respiratory: Lungs have equal breath sounds bilaterally, clear to auscultation and percussion. No rales, rhonchi or wheezes noted. No increased work of breathing, no retractions or nasal flaring. 00:23 MS/ Extremity: Pulses equal, no cyanosis. Neurovascular intact. Full, normal range of motion. Psych: Awake, alert, with orientation to person, place and time. Behavior, mood, and affect are within normal limits. 00:23 Abdomen/GI: Inspection: abdomen appears normal, Bowel sounds: normal, Palpation: moderate abdominal tenderness. Vital Signs: 03/20 22:41 BP 145 / 97; Pulse 144; Resp 18 S; Temp 98.4(O); Pulse Ox 97% on R/A; Weight 108.86 kg as6 (R); Height 5 ft. 4 in. (162.56 cm) (R); Pain 9/10; 03/21 00:30 BP 121 / 83; Pulse 102; Resp 18 S; Pulse Ox 96% ; Pain 10/10; ha1 03/20 22:41 Body Mass Index 41.20 (108.86 kg, 162.56 cm) as6 MDM: 03/20 22:54 Patient medically screened. ms3 03/21 00:49 Data reviewed: vital signs, nurses notes, lab test result(s), and as a result, I will ms3 discharge patient. Counseling: I had a detailed discussion with the patient and/or guardian regarding: the historical points, exam findings, and any diagnostic results supporting the discharge/admit diagnosis, lab results, the need for outpatient follow up, to return to the emergency department if symptoms worsen or persist or if there are any questions or concerns that arise at home. ED course: Patient's pain improved at this time, nad, non-toxic, tolerating po. Patient to follow up with her PMD in 1-2 days for re-evaluation. Patient understands/ agrees with plan. All questions answered. Return precautions given.. 03/20 22:55 Order name: CBC with Diff; Complete Time: 00:23 ms3 03/20 22:55 Order name: CMP; Complete Time: 00:23 ms3 03/20 22:55 Order name: Lipase; Complete Time: 00:23 ms3 03/20 22:55 Order name: IV Saline Lock; Complete Time: 00:31 ms3 03/20 22:55 Order name: Labs collected and sent; Complete Time: 00:31 ms3 Administered Medications: 03/20 22:55 CANCELLED (Physician Discretion): Zofran (Ondansetron) 4 mg IVP once; over 2 minutes ms3 23:56 Not Given (Patient Refused): morphine 4 mg IVP once over 4 mins ms3 03/21 00:04 Drug: Phenergan (promethazine) 25 mg Route: IM; Site: left vastus lateralis; ha1 00:58 Follow up: Response: No adverse reaction; Pain is decreased kd3 00:31 Drug: NS 0.9% 1000 ml Route: IV; Rate: 1 bolus; Site: left forearm; kd3 00:59 Follow up: IV Status: Completed infusion; IV Intake: 500ml kd3 00:31 Drug: Demerol (meperidine) 50 mg Route: IVP; Site: left forearm; kd3 00:58 Follow up: Response: No adverse reaction; Pain is decreased kd3 00:32 Drug: Pepcid (famotidine) 20 mg Route: IVP; Site: right antecubital; kd3 00:59 Follow up: Response: No adverse reaction kd3 00:58 Drug: HYDROcodone-acetaminophen 5 mg-325 mg 1 tabs Route: PO; kd3 00:58 Follow up: Response: No adverse reaction kd3 Disposition Summary: 03/21/22 00:49 Discharge Ordered Location: Home ms3 Condition: Stable ms3 Diagnosis - Lower abdominal pain, unspecified ms3 - Nausea with vomiting, unspecified ms3 Followup: ms3 - With: Private Physician - When: 1 - 2 days - Reason: Recheck today's complaints Discharge Instructions: - Discharge Summary Sheet ms3 - Abdominal Pain, Adult ms3 - Nausea and Vomiting, Adult ms3 Forms: - Medication Reconciliation Form ms3 - Thank You Letter ms3 - Antibiotic Education ms3 - Prescription Opioid Use ms3 Signatures: Dispatcher [employer] EDMS Tucker, Rosalino, DO DO ms3 Uday Smith RN RN as6 Oralia Varma RN RN kd3 Rachel Valencia RN RN ha1 Corrections: (The following items were deleted from the chart) 03/20 22:55 22:55 Zofran (Ondansetron) 4 mg IVP once; over 2 minutes ordered. ms3 ms3
[2022-03-21] MEDS ORDERED: HYDROCODONE/APAP 5/325 MG TAB ONE (01:03)
[2022-03-22 10:03] VITALS: BP 145/97; TEMP 98.4; O2SAT 97
== END 2022-03-21 00:59 | disposition home or self-care (01) ==
LOC: ER 22:37
DX: R10.30 Lower abdominal pain, unspecified (principal); R11.2 Nausea with vomiting, unspecified; Z88.6 Allergy status to analgesic agent
CPT/HCPCS: 36415; 80053; 83690; 85025; 96372; 99283; J2550; J7030

== ENCOUNTER 2022-03-23 23:26 | Emergency (ER) | payer SELFPAY ==
--- OUTSIDE RECORDS SUMMARY | 2022-03-23 23:28 | XMS REPORT | Clinical Summary ---
:1985 Author Organization [facility] MD [facility] Address [address] [place] [address] Care Team Providers Name Role Phone Keila Valentine MD Primary Care Provider Navi Arango VENEREAL DISEASE CONTROL HEAD Unavailable Allergies Active Allergy Reactions Severity Noted [...] melan nu of skin (Primary Dx) after 03/23/2021 Immunizations Name Administration Dates Next Due Influenza [...] OVARIAN CYST SURGERY 08/29/2018 - Right 09/28/2018 IA EXC SKIN MALIG 0.6-1 CM 09/23/2018 Abdomen/Right Proce dure: EXCISION OF TRUNK,ARM,LEG MALIGNANT LESION OF TRUNK, right epi gastric; Surgeon: Nicolasa Valentine MD; Location: [facility] OR; Service: SURG ON C - [...] Visit Dermatology Lisbeth Shannon M D [address] [place], [place] [address] (Wo rk) Health Maintenance Due Date Last Done Comments COVID-19 Vaccination (#1) 01/11/1987 Results Not on fileafter 03/23/2021 Advance Directives Code Status Date Activated Date Inactivated Comments Full Code 10/04/2018 8:21 PM 10/08/2018 5:55 PM Full Code 09/23/2018 1:48 PM 09/23/2018 6:55 PM Care Teams Mission Coordinator Relationship Specialty Start Date End Date Keila Valentine MD PCP - General Surgical Oncology 08/26/18 [address] [place] [address] Navi Arango FNP PCP - External Primary Family Practice 09/08/18 [address] [place] [address]
--- OUTSIDE RECORDS SUMMARY | 2022-03-23 23:42 | XMS REPORT | Continuity of Care Document ---
:1985 Author Organization [facility] t Address [address] [place] [address] Care Team Providers Name Role Phone Keila Valentine MD Primary Care Physician Josué Arango Attending Clinician Unavailable Trice Strickland Attending Clinician TRICE HARRIS Attending Clinician Unavailable Ameena Dupree Attending Clinician [...] Number Effective Date Expiration Date Abhinav durbin [id number] 1958 00:00:00 [id number] 1958 00:00:00 PHCS GENERIC [id number] 2018 00:00:00 Problems Condition Condition Condition Status [...] (LUF/LI V/SA) Anxiety Anxiety Problem Active [facility] Memoria l (LUF/LI V/SA) No known No known Disease Unive rs active active ity of problems problems [facility] Allergies, Adverse Reactions, Alerts Allergy Allergy Status Severity Reaction(s) Onset Inactive Treating Comm ents Source Name Type Date Date Clinician ketorola DA Active U rash [facility] 2- [place] 00:00: d 00 [facility] KETOROLA DRUG Active Low Rash 2020-07 Univers C INGREDI 08-22 ity of 00:00: [place] 00 [facility] Ketorola Propensi Active Rash 2020-07 Univer s c ty to 08-22 ity of adverse 00:00: [place] reaction 00 [facility] ketorola DA Active NE [facility] 9[facility]10 [facility] [address] [facility] ketorola DA Active U rash [facility] 9- [place] 00:00: d 00 [facility] ketorola DA Active U [facility] c 9-24 [place] 00:00: d 00 [facility] Ket[place]ola Drug Active Itching Univers c Allergy 07-19 ity of 00:00: [place] 00 MD Gian payton [facility] Toradol Adverse Active Info Not Common Reaction Available Spiri t - [facility] Family History Family Member Diagnosis Comments Start Date Stop Date Source Natural mother -Breast cancer [facility] [place] MD Disla Cance r [place] Social History Social Habit Start Date Stop Date Quantity Comments Source Exposure to 2022-02-09 2022-02-19 Not sure University SARS-CoV-2 (event) 00:00:00 09:20:00 [facility] Alcohol intake 2018-10-04 2018-10-04 Current University of 00:00:00 00:00:00 non-drinker of [place] MD Lila mu[facility]oz [facility] (finding) Cigarette 2018-09-04 2018-09-04 University of pack-years 00:00:00 00:00:00 [place] MD Bah son [facility] [place] Tobacco use and 2018-09-04 2018-09-04 Smokeless Universit y of exposure 00:00:00 00:00:00 tobacco non-user [place] [facility] Cigarettes smoked 2018-09-04 2018-09-04 Univers ity of current (pack per 00:00:00 00:00:00 Jeffrey Neely ) - Reported Cancer Ce nter History of tobacco 2004-07-01 2017-05-11 Smoker Univer sity of use 00:00:00 00:00:00 Jeffrey Bah [facility] Sex Assigned At [birth year] [facility] 00:00[facility]00 [facility]:00 Hospital Smoking Status Start Date Stop Date Source Tobacco smoking [facility] al consumption unknown Never smoked tobacco [facility] Ex-smoker 2018-09-04 00:00:00 2018-09-04 [place] o f Jeffrey BARNARD 00:00:00 [facility] Medications Ordered Filled Start Stop Current Ordering Indication Dosage Frequency Signature Comments Components Source Medication Medication Date Date Medication? Clinician (SIG) Name Name metoclopram 2021- No 10mg 10 mg, Uni vers oleg HCl 02-19 Slow IV ity of (REGLAN) 15:30: 15:37 Push, [place] injection 00 :00 ONCE, 1 Medical 10 mg dose, On Branch [facility] 02/19/22 at 1030, JOSE NaCl 0.9% 2021- No 1000mL at 999 Uni vers (NS) bolus 02-19 mL/hr, ity of infusion 15:30: 15:58 1,000 mL, Jacques as 1,000 mL 00 :00 IV Medical Infusion, Branch ONCE, 1 dose, On [facility] 02/19/22 at 1030, JOSE morpHINE (4 2021- No 4mg 4 mg, Slow Univers mg/mL) 02-19 IV Push, ity of injection 4 14:45: 15:05 [place]CE[place] 1 [place] mg 00 :00 dose, On Medical [facility] Branch 02/19/22 at 0945, STAT ondansetron 2021- No 4mg 4 mg, Slow Univers (ZOFRAN 02-19 IV Push, ity of (PF)) 14:30: 15:05 ONCE, 1 [place] injection 4 00 :00 dose, On Medi felipa mg [facility] Branch 02/19/22 at 0930, JOSE methylPREDN 2021- Yes [id number] [facility] ity of (MEDROL, 00:00: SEE-INSTRU Jacques as TE,) 4 mg 00 CTIONS. Medica l tablets follow Branch package directions methylPREDN Yes [id number] Take by Univers ISolone 11-29 mouth ity of (MEDROL, 00:00: SEE-INSTRU Jacques as TE,) 4 mg 00 CTIONS. Medica l tablets follow Branch package directions amoxicillin 2021- No [id number] 1{tbl} Take 1 Univers -clavulanat 11-29 tablet [...] estrogens, Yes Take by [facility] ers conjugated 3-01 mouth. ity of (PREMARIN 16:19: [place] ORAL) 44 Medical Branch estrogens, Yes Take by [facility] ers conjugated 3-01 mouth. ity of (PREMARIN 16:19: [place] ORAL) 44 Medical Branch naproxen Yes [id number] 500mg Take 1 U nivers (NAPROSYN) 2-02 tablet by ity of 500 mg 00:00: mouth 2 [place] tablet 00 (two) Medical times Branch daily with meals. naproxen Yes [id number] 500mg Take 1 U nivers (NAPROSYN) 2-02 tablet by ity of 500 mg 00:00: mouth 2 [place] tablet 00 (two) Medical times Branch daily with meals. albuterol 2020-07 Yes [id number] 2{puff} Inhale 2 Univers 90 2-22 Puffs [...] Cough. Indication s: cough albuterol 2020-07 Yes [id number] 2{puff} Inhale 2 Univers 90 2-22 Puffs [...] 0-23 [facility] 00:00: - [facility] 00 [facility] estrogens, 2018-07 Yes Take by Univ ers conjugated 0-23 mouth ity of (PREMARIN 00:00: daily. [place] ORAL) 00 [facility] estrogens, 2018-07 Yes Take by Univ ers conjugated 0-23 mouth ity of (PREMARIN 00:00: daily. [place] ORAL) 00 MD Gian payton [facility] estrogens, 2018-07 Yes Take by Univ ers conjugated 0-23 mouth ity of (PREMARIN 00:00: daily. [place] ORAL) 00 [facility] estrogens, 2018-07 Yes Take by Univ ers conjugated 0-23 mouth ity of (PREMARIN 00:00: daily. [place] ORAL) 00 [facility] estrogens, 2018-07 Yes Take by Univ ers conjugated 0-23 mouth ity of (PREMARIN 00:00: daily. [place] ORAL) 00 [facility] estrogens, 2018-07 Yes Take by Univ ers conjugated 0-23 mouth ity of (PREMARIN 00:00: daily. [place] ORAL) 00 [facility] estrogens, 2018-07 Yes Take by Univ ers conjugated 0-23 mouth ity of (PREMARIN 00:00: daily. [place] ORAL) 00 [facility] Estradiol Estradiol 2018-07 Yes Kaywin 1 tablet Common 0-01 [facility] 00:00: - [facility] 00 [facility] citalopram Yes Univers (CeleXA) 40 9-10 ity of mg tablet 00:00: [facility] Univers (CeleXA) 40 9-10 ity of mg tablet 00:00: [facility] citalopram Yes Univers (CeleXA) 40 9-10 ity of mg tablet 00:00: [facility] citalopram Yes Univers (CeleXA) 40 9-10 ity of mg tablet [facility]:00[facility] Univers (CeleXA) 40 9-10 ity of mg tablet 00:00: [facility] Univers (CeleXA) 40 9-10 ity of mg tablet 00:00: MD Springer [facility] citalopram Yes Univers (CeleXA) 40 9-10 ity of mg tablet 00:00: MD Springer [facility] levothyroxi Yes Univer s ne 175 mcg 8-10 ity of cap 00:00: MD Gian payton [facility] levothyroxi Yes Univer s ne 175 mcg 8-10 ity of cap 00:00: [place] 00 MD Gian payton [facility] levothyroxi 0 Yes Univer s ne 175 mcg 8-10 ity of cap [facility]: [facility] levothyroxi Yes Univer s ne 175 mcg 8-10 ity of cap 00:00: 00 [facility] levothyroxi 0 Yes Univer s ne 175 mcg 8-10 ity of cap 00:00: [facility] levothyroxi 0 Yes Univer s ne 175 mcg 8-10 ity of cap 00:00: 00 [facility] tata [facility] levothyroxi Yes Univer s ne 175 mcg 8-10 ity of cap 00:00: 00 [facility] zolpidem 0 Yes Univers (AMBIEN) 10 07-01 ity of mg tablet 00:00: [facility] zolpidem 2006-0 Yes Univers (AMBIEN) 10 07-01 ity of mg tablet 00:00: [place] 00 [facility] zolpidem 2006-0 Yes Univers (AMBIEN) 10 07-01 ity of mg tablet 00:00: 00 [facility] zolpidem 2006-0 Yes Univers (AMBIEN) 10 07-01 ity of mg tablet 00:00: [place] 00 [facility] zolpidem 2006-0 Yes Univers (AMBIEN) 10 07-01 ity of mg tablet 00:00: [place] 00 [facility] zol[facility]em 2006-0 Yes Univers (AMBIEN) 10 07-01 ity of mg tablet 00:00: [place] 00 [facility] zolpidem 2006-0 Yes Univers (AMBIEN) 10 07-01 ity of mg tablet 00:00: [place] 00 [facility] acetaminoph acetaminoph Yes 1 Q5.00H [facility] [...] C [facility] conjugated conjugated Gutierrez es (ALF) 1.25 (ALF) 1.25 Mem oria MG Oral MG Oral [...] [facility] conjugated conjugated daily Olamide kes (ALF) 1.25 (ALF) 1.25 Mem oria MG Oral MG Oral l Tablet Tablet (LUF/LI V/SA) levothyroxi levothyroxi Yes 150ug 1xD orally [facility] (LUF/LI V/SA) Celexa Celexa Yes Kaywin 1 tablet Commo n [facility] - [facility] Levothyroxi Levothyroxi Yes ywin 1 tablet Common ne Sodium ne Sodium Aiden on an Sp karla empty - [facility]I stomach in [facility] Estradiol Estradiol Yes Kaywin 1 patch to Common [facility] - [facility] Immunizations Ordered Filled Immunization Date Status Comments [facility] e Immunization Name Name influenza, high influenza, high 2015-04-19 Completed [facility] dose seasonal, dose seasonal, 00:00:00 Memdiego lam preservative-free preservative-free (LUF/DAVID/SA) Influenza, 2011-03-30 Completed University of Unspecified 00:00:00 [place] [facility] 2011-03-30 Completed University of 00:00:00 [place] [facility] Influenza, 2011-03-30 Completed University of Unspecified 00:00:00 [place] Alfonso [facility] 2011-03-30 Completed University of 00:00:00 [place] [facility] Influenza, 2011-03-30 Completed University of Unspecified 00:00:00 [place] [facility] Td 2011-03-30 Completed University of 00:00:00 [place] [facility] Influenza, 2011-03-30 Completed University of Unspecified 00:00:00 [place] MD [facility] Td 2011-03-30 Completed University of 00:00:00 [place] [facility] Influenza, 2011-03-30 Completed University of Unspecified 00:00:00 [place] Alfonso [facility] 2011-03-30 Completed University of 00:00:00 [place] [facility] Influenza, 2011-03-30 Completed University of Unspecified 00:00:00 [place] MD Hamilton [facility] 2011-03-30 Completed University of 00:00:00 [place] [facility] Influenza, 2011-03-30 Completed University of Unspecified 00:00:00 [place] Al[facility] Td 2011-03-30 Completed University of 00:00:00 [place] [facility] Influenza (IM) 2009-04-05 Completed University of Preservative Free 00:00:00 [facility] Influenza (IM) 2009-04-05 Completed University of Preservative Free 00:00:00 [facility] Influenza (IM) 2009-04-05 Completed University of Preservative Free 00:00:00 [facility] Influenza (IM) 2009-04-05 Completed University of Preservative Free 00:00:00 [facility] Influenza (IM) 2009-04-05 Completed University of Preservative Free 00:00:00 [facility] Influenza (IM) 2009-04-05 Completed University of Preservative Free 00:00:00 [facility] Influenza (IM) 2009-04-05 Completed University of Preservative Free 00:00:00 [facility] Vital Signs Vital Name Observation Time Observation Value Comments Source Systolic blood 2022-02-19 14:13:00 156 mm[Hg] Univer sity of pressure [facility] Diastolic blood 2022-02-19 14:13:00 94 mm[Hg] Unive rsity of pressure [facility] Heart rate 2022-02-19 14:13:00 111 /min Universi ty of [facility] Body temperature 2022-02-19 14:13:00 37.11 Ericka [facility] Respiratory rate 2022-02-19 14:13:00 22 /min Univ ersity of [facility] Body height 2022-02-19 14:13:00 162.6 cm Universi ty of [place] [facility] Body weight 2022-02-19 14:13:00 104.327 kg Universi ty of [facility] BMI 2022-02-19 14:13:00 39.48 kg/m2 [facility] Oxygen saturation in 2022-02-19 14:13:00 99 /min University of Arterial blood by [facility] Pulse oximetry Branch Systolic blood 2021-11-29 22:40:00 116 mm[Hg] Univer sity of pressure [facility] Diastolic blood 2021-11-29 22:40:00 85 mm[Hg] Unive rsity of pressure [facility] Heart rate 2021-11-29 22:40:00 87 /min Universi ty of [facility] Body temperature 2021-11-29 22:40:00 37.28 Ericka Univ ersity of [facility] Respiratory rate 2021-11-29 22:40:00 16 /min Univ ersity of [facility] Body height 2021-11-29 22:40:00 162.6 cm Universi ty of [facility] Body weight 2021-11-29 22:40:00 103.874 kg Universi [facility] BMI 2021-11-29 22:40:00 39.31 kg/m2 [facility] Oxygen saturation in 2021-11-29 22:40:00 98 /min University Arterial blood by [facility] Pulse oximetry Warden Height 2021-04-23 00:58:00 162.56 CM Weight 2021-04-23 [...] mm[Hg] Unive rsity of pressure Jeffrey Chan [facility] Heart rate 2021-10-26 15:16:33 92 /min Universi ty of [place] MD Chan [facility] Respiratory rate 2021-10-26 15:16:33 16 /min [facility] MD Chan on [facility] Oxygen saturation in 2021-10-26 15:16:33 98 /min [facility] blood by Jeffrey muñoz Pulse oximetry [facility] Body Temperature 2021-04-23 00:58:00 97.8 [degF] [facility] (LUF/DAVID/SA) Pulse Rate 2021-04-23 00:58:00 116 /min [facility] (LUF/DAVID/SA) Respiratory Rate 2021-04-23 00:58:00 18 /min [facility] (LUF/DAVID/SA) O2% BldC Oximetry 2021-04-23 00:58:00 99 % [facility] (LUF/DAVID/SA) BP Systolic 2021-04-23 00:58:00 111 mm[Hg] [facility] (LUF/DAVID/SA) BP Diastolic 2021-04-23 00:58:00 77 mm[Hg] [facility] (LUF/DAVID/SA) Height 2021-04-23 00:58:00 64 [in_i] [facility] (F/DAVID/SA) Weight 2021-04-23 00:58:00 105.1 kg [facility] (LUF/DAVID/SA) BMI (Body Mass 2021-04-23 00:58:00 40 kg/m2 [facility] (LUF/DAVID/SA) Body Temperature 2021-03-24 10:53:00 98.6 [degF] [facility] (LUF/DAVID/SA) Pulse Rate 2021-03-24 10:53:00 87 /min [facility] (LUF/DAVID/SA) Respiratory Rate 2021-03-24 10:53:00 18 /min [facility] (LUF/DAVID/SA) O2% BldC Oximetry 2021-03-24 10:53:00 97 % [facility] (LUF/DAVID/SA) BP Systolic 2021-03-24 10:53:00 120 mm[Hg] [facility] (LUF/DAVID/SA) BP Diastolic 2021-03-24 10:53:00 86 mm[Hg] [facility] (LUF/DAVID/SA) Height 2021-03-24 10:53:00 64 [in_i] [facility] (LUF/DAVID/SA) Weight 2021-03-24 10:53:00 105 kg [facility] (LUF/DAVID/SA) BMI (Body Mass 2021-03-24 10:53:00 40 kg/m2 [facility] Index) [facility] (LUF/DAVID/SA) Body Temperature 2021-03-10 10:55:00 98.4 [degF] [facility] (LUF/DAVID/SA) Pulse Rate 2021-03-10 10:55:00 85 /min [facility] (LUF/DAVID/SA) Respiratory Rate 2021-03-10 10:55:00 20 /min [facility] (LUF/DAVID/SA) O2% BldC Oximetry 2021-03-10 10:55:00 100 % [facility] (LUF/DAVID/SA) BP Systolic 2021-03-10 10:55:00 140 mm[Hg] [facility] (LUF/DAVID/SA) BP Diastolic 2021-03-10 10:55:00 98 mm[Hg] [facility] (LUF/DAVID/SA) Height 2021-03-10 10:55:00 64 [in_i] [facility] (LUF/DAVID/SA) Weight 2021-03-10 10:55:00 105.2 kg [facility] (LUF/DAVID/SA) BMI (Body Mass 2021-03-10 10:55:00 40 kg/m2 [facility] (LUF/DAVID/SA) Pulse Rate 2021-02-23 12:32:00 67 /min [facility] (LUF/DAVID/SA) O2% BldC Oximetry 2021-02-23 12:32:00 98 % [facility] (LUF/DAVID/SA) BP Systolic 2021-02-23 12:32:00 112 mm[Hg] [facility] (LUF/DAVID/SA) BP Diastolic 2021-02-23 12:32:00 70 mm[Hg] [facility] (LUF/DAVID/SA) Heart Rate 2021-02-23 11:16:00 64 /min [facility] (LUF/DAVID/SA) Respiratory Rate 2021-02-23 11:16:00 14 /min [facility] (LUF/DAVID/SA) Body Temperature 2021-02-23 08:24:00 98.1 [degF] [facility] (LUF/DAVID/SA) Height 2021-02-23 08:24:00 64 [in_i] [facility] (LUF/DAVID/SA) Weight 2021-02-23 08:24:00 110 kg [facility] (LUF/DAVID/SA) BMI (Body Mass 2021-02-23 08:24:00 41.9 kg/m2 [facility] (LUF/DAVID/SA) Heart Rate 2021-01-10 01:46:00 93 /min [facility] (LUF/DAVID/SA) Pulse Rate 2021-01-10 01:46:00 95 /min [facility] (LUF/DAVID/SA) Respiratory Rate 2021-01-10 01:46:00 16 /min [facility] (F/DAVID/SA) O2% BldC Oximetry 2021-01-10 01:46:00 97 % [facility] (LUF/DAVID/SA) BP Systolic 2021-01-10 01:46:00 103 mm[Hg] [facility] (LUF/DAVID/SA) BP Diastolic 2021-01-10 01:46:00 71 mm[Hg] [facility] (LUF/DAVID/SA) Weight 2021-01-10 00:53:00 102 kg [facility] (LUF/DAVID/SA) Body Temperature 2021-01-10 00:47:00 98.6 [degF] [facility] (LUF/DAVID/SA) Pulse Rate 2020-12-12 14:20:00 87 /min [facility] (LUF/DAVID/SA) O2% BldC Oximetry 2020-12-12 14:20:00 98 % [facility] (LUF/DAVID/SA) BP Systolic 2020-12-12 14:20:00 128 mm[Hg] [facility] (LUF/DAVID/SA) BP Diastolic 2020-12-12 14:20:00 86 mm[Hg] [facility] (LUF/DAVID/SA) Body Temperature 2020-12-12 12:39:00 98.9 [degF] [facility] (LUF/DAVID/SA) Respiratory Rate 2020-12-12 12:39:00 20 /min [facility] (LUF/DAVID/SA) Weight 2020-12-12 12:39:00 102 kg [facility] (LUF/DAVID/SA) Body Temperature 2020-12-08 10:27:00 98.6 [degF] [facility] (LUF/DAVID/SA) Pulse Rate 2020-12-08 10:27:00 79 /min [facility] (LUF/DAVID/SA) Respiratory Rate 2020-12-08 10:27:00 16 /min [facility] (LUF/DAVID/SA) O2% BldC Oximetry 2020-12-08 10:27:00 99 % [facility] (LUF/DAVID/SA) BP Systolic 2020-12-08 10:27:00 111 mm[Hg] [facility] (LUF/DAVID/SA) BP Diastolic 2020-12-08 10:27:00 57 mm[Hg] [facility] (LUF/DAVID/SA) Weight 2020-12-08 10:27:00 103 kg [facility] (LUF/DAVID/SA) Body Temperature 2020-11-25 00:27:00 97.9 [degF] [facility] (LUF/DAVID/SA) Pulse Rate 2020-11-25 00:27:00 82 /min [facility] (LUF/DAVID/SA) Respiratory Rate 2020-11-25 00:27:00 17 /min [facility] (LUF/DAVID/SA) O2% BldC Oximetry 2020-11-25 00:27:00 98 % [facility] (LUF/DAVID/SA) BP Systolic 2020-11-25 00:27:00 109 mm[Hg] [facility] (LUF/DAVID/SA) BP Diastolic 2020-11-25 00:27:00 62 mm[Hg] [facility] (LUF/DAVID/SA) Heart Rate 2020-11-21 09:30:00 75 /min [facility] (LUF/DAVID/SA) Respiratory Rate 2020-11-21 09:30:00 14 /min [facility] (LUF/DAVID/SA) BP Systolic 2020-11-21 09:30:00 120 mm[Hg] [facility] (LUF/DAVID/SA) BP Diastolic 2020-11-21 09:30:00 76 mm[Hg] [facility] (F/DAVID/SA) Body Temperature 2020-11-21 07:15:00 98.1 [degF] [facility] (LUF/DAVID/SA) Pulse Rate 2020-11-21 07:15:00 103 /min [facility] (F/DAVID/SA) O2% BldC Oximetry 2020-11-21 07:15:00 100 % [facility] (F/DAVID/SA) Height 2020-11-21 07:15:00 64 [in_i] [facility] (F/DAVID/SA) Weight 2020-11-21 07:15:00 103.1 kg [facility] (LUF/DAVID/SA) BMI (Body Mass 2020-11-21 07:15:00 39.2 kg/m2 [facility] (LUF/DAVID/SA) Heart Rate 2020-11-14 13:30:00 69 /min [facility] (LUF/DAVID/SA) Pulse Rate 2020-11-14 13:30:00 70 /min [facility] (F/DAVID/SA) Respiratory Rate 2020-11-14 13:30:00 10 /min [facility] (LUF/DAVID/SA) O2% BldC Oximetry 2020-11-14 13:30:00 96 % [facility] (F/DAVID/SA) BP Systolic 2020-11-14 13:30:00 103 mm[Hg] [facility] (LUF/DAVID/SA) BP Diastolic 2020-11-14 13:30:00 77 mm[Hg] [facility] (F/DAVID/SA) Body Temperature 2020-11-14 09:47:00 97.4 [degF] [facility] (F/DAVID/SA) Weight 2020-11-14 09:47:00 103 kg [facility] ([facility]/DAVID/SA) Body Temperature 2020-11-08 08:32:00 98.1 [degF] [facility] (F/DAVID/SA) Pulse Rate 2020-11-08 08:32:00 82 /min [facility] ([facility]/DAVID/SA) Respiratory Rate 2020-11-08 08:32:00 20 /min [facility] (F/DAVID/SA) O2% BldC Oximetry 2020-11-08 08:32:00 100 % [facility] ([facility]/DAVID/SA) BP Systolic 2020-11-08 08:32:00 129 mm[Hg] [facility] (F/DAVID/SA) BP Diastolic 2020-11-08 08:32:00 72 mm[Hg] [facility] (F/DAVID/SA) Height 2020-11-08 08:32:00 64 [in_i] [facility] ([facility]/DAVID/SA) Weight 2020-11-08 08:32:00 103.1 kg [facility] ([facility]/DAVID/SA) BMI (Body Mass 2020-11-08 08:32:00 39.2 kg/m2 [facility] (LUF/DAVID/SA) Body Temperature 2020-11-01 00:58:00 98.7 [degF] [facility] (F/DAVID/SA) Pulse Rate 2020-11-01 00:58:00 104 /min [facility] (LUF/DAVID/SA) Respiratory Rate 2020-11-01 00:58:00 20 /min [facility] (LUF/DAVID/SA) O2% BldC Oximetry 2020-11-01 00:58:00 99 % [facility] (LUF/DAVID/SA) BP Systolic 2020-11-01 00:58:00 133 mm[Hg] [facility] (LUF/DAVID/SA) BP Diastolic 2020-11-01 00:58:00 101 mm[Hg] [facility] (LUF/DAVID/SA) Height 2020-11-01 00:53:00 65 [in_i] [facility] (LUF/DAVID/SA) Weight 2020-11-01 00:53:00 103 kg [facility] (LUF/DAVID/SA) BMI (Body Mass 2020-11-01 00:53:00 37.8 kg/m2 [facility] (LUF/DAVID/SA) Body Temperature 2020-10-04 23:51:00 98 [degF] [facility] [facility] (LUF/DAIVD/SA) Pulse Rate 2020-10-04 23:51:00 96 /min [facility] (LUF/DAVID/SA) Respiratory Rate 2020-10-04 23:51:00 20 /min [facility] (LUF/DAVID/SA) O2% BldC Oximetry 2020-10-04 23:51:00 98 % [facility] (LUF/DAVID/SA) BP Systolic 2020-10-04 23:51:00 125 mm[Hg] [facility] (LUF/ADVID/SA) BP Diastolic 2020-10-04 23:51:00 73 mm[Hg] [facility] (LUF/DAVID/SA) Height 2020-10-04 23:47:00 65 [in_i] [facility] (LUF/DAVID/SA) Weight 2020-10-04 23:47:00 102.6 kg [facility] (LUF/DAVID/SA) BMI (Body Mass 2020-10-04 23:47:00 37.6 kg/m2 [facility]) [facility] (LUF/DAVID/SA) Body Temperature 2020-09-18 01:44:00 98.3 [degF] [facility] (LUF/DAVID/SA) Pulse Rate 2020-09-18 01:44:00 116 /min [facility] (LUF/DAVID/SA) Respiratory Rate 2020-09-18 01:44:00 20 /min [facility] (LUF/DAVID/SA) O2% BldC Oximetry 2020-09-18 01:44:00 99 % [facility] (LUF/DAVID/SA) BP Systolic 2020-09-18 01:44:00 127 mm[Hg] [facility] (LUF/DAVID/SA) BP Diastolic 2020-09-18 01:44:00 83 mm[Hg] [facility] (LUF/DAVID/SA) Height 2020-09-18 01:40:00 64 [in_i] [facility] (F/DAVID/SA) Weight 2020-09-18 01:40:00 102.8 kg [facility] (LUF/DAVID/SA) BMI (Body Mass 2020-09-18 01:40:00 39.1 kg/m2 [facility]) [facility] (LUF/DAVID/SA) Pulse Rate 2020-09-12 02:16:00 88 /min [facility] (LUF/DAVID/SA) O2% BldC Oximetry 2020-09-12 02:16:00 98 % [facility] (LUF/DAVID/SA) BP Systolic 2020-09-12 02:16:00 113 mm[Hg] [facility] (LUF/DAVID/SA) BP Diastolic 2020-09-12 02:16:00 64 mm[Hg] [facility] (LUF/DAVID/SA) Body Temperature 2020-09-12 00:56:00 97.9 [degF] [facility] (LUF/DAVID/SA) Respiratory Rate 2020-09-12 00:56:00 18 /min [facility] (F/DAVID/SA) Height 2020-09-12 00:50:00 65 [in_i] [facility] (LUF/DAVID/SA) Weight 2020-09-12 00:50:00 104.5 kg [facility] (LUF/DAVID/SA) BMI (Body Mass 2020-09-12 00:50:00 38.3 kg/m2 [facility] Index) [facility] (LUF/DAVID/SA) Pulse Rate 2020-08-22 03:16:00 100 /min [facility] (LUF/DAVID/SA) O2% BldC Oximetry 2020-08-22 03:16:00 95 % [facility] (F/DAVID/SA) BP Systolic 2020-08-22 03:16:00 129 mm[Hg] [facility] (LUF/DAVID/SA) BP Diastolic 2020-08-22 03:16:00 88 mm[Hg] [facility] (F/DAVID/SA) Body Temperature 2020-08-22 01:35:00 98.4 [degF] [facility] (F/DAVID/SA) Respiratory Rate 2020-08-22 01:35:00 20 /min [facility] (F/DAVID/SA) Height 2020-08-22 01:35:00 64 [in_i] [facility] (F/DAVID/SA) Weight 2020-08-22 01:35:00 102 kg [facility] (F/DAVID/SA) BMI (Body Mass 2020-08-22 01:35:00 38.8 kg/m2 [facility] Index) [facility] (LUF/DAVID/SA) Pulse Rate 2020-08-06 03:31:00 83 /min [facility] (F/DAVID/SA) O2% BldC Oximetry 2020-08-06 03:31:00 96 % [facility] (F/DAVID/SA) BP Systolic 2020-08-06 03:31:00 127 mm[Hg] [facility] (LUF/DAVID/SA) BP Diastolic 2020-08-06 03:31:00 82 mm[Hg] [facility] (F/DAVID/SA) Body Temperature 2020-08-06 01:45:00 98 [degF] [facility] (LUF/DAVID/SA) Respiratory Rate 2020-08-06 01:45:00 20 /min [facility] (LUF/DAVID/SA) Height 2020-08-06 01:39:00 66 [in_i] [facility] (LUF/DAVID/SA) Weight 2020-08-06 01:39:00 104.2 kg [facility] (LUF/DAVID/SA) BMI (Body Mass 2020-08-06 01:39:00 37.3 kg/m2 [facility] (LUF/DAVID/SA) Pulse Rate 2020-07-19 11:16:00 67 /min [facility] (LUF/DAVID/SA) O2% BldC Oximetry 2020-07-19 11:16:00 94 % [facility] (F/DAVID/SA) BP Systolic 2020-07-19 11:16:00 101 mm[Hg] [facility] (LUF/DAVID/SA) BP Diastolic 2020-07-19 11:16:00 63 mm[Hg] [facility] (LUF/DAVID/SA) Body Temperature 2020-07-19 07:50:00 98 [degF] [facility] (LUF/DAVID/SA) Respiratory Rate 2020-07-19 07:50:00 18 /min [facility] (F/DAVID/SA) Weight 2020-07-19 07:50:00 100 kg [facility] (LUF/DAVID/SA) Heart Rate 2020-07-05 04:46:00 80 /min [facility] (LUF/DAVID/SA) Respiratory Rate 2020-07-05 04:46:00 15 /min [facility] (LUF/DAVID/SA) BP Systolic 2020-07-05 04:46:00 134 mm[Hg] [facility] (LUF/DAVID/SA) BP Diastolic 2020-07-05 04:46:00 60 mm[Hg] [facility] (LUF/DAVID/SA) Body Temperature 2020-07-05 02:57:00 98 [degF] [facility] (LUF/DAVID/SA) Pulse Rate 2020-07-05 02:57:00 82 /min [facility] (LUF/DAVID/SA) O2% BldC Oximetry 2020-07-05 02:57:00 99 % [facility] (LUF/DAVID/SA) Height 2020-07-05 02:50:00 65 [in_i] [facility] (LUF/DAVID/SA) Weight 2020-07-05 02:50:00 102.1 kg [facility] (LUF/DAVID/SA) BMI (Body Mass 2020-07-05 02:50:00 37.5 kg/m2 [facility] Index) [facility] (LUF/DAVID/SA) Body Temperature 2020-06-07 13:38:00 98.5 [degF] [facility] (LUF/DAVID/SA) Pulse Rate 2020-06-07 13:38:00 95 /min [facility] (LUF/DAVID/SA) Respiratory Rate 2020-06-07 13:38:00 20 /min [facility] (LUF/DAVID/SA) O2% BldC Oximetry 2020-06-07 13:38:00 97 % [facility] (LUF/DAVID/SA) BP Systolic 2020-06-07 13:38:00 129 mm[Hg] [facility] (LUF/DAVID/SA) BP Diastolic 2020-06-07 13:38:00 73 mm[Hg] [facility] (LUF/DAVID/SA) Height 2020-06-07 13:38:00 64 [in_i] [facility] (LUF/DAVID/SA) Weight 2020-06-07 13:38:00 99.79 kg [facility] (LUF/DAVID/SA) BMI (Body Mass 2020-06-07 13:38:00 38 kg/m2 [facility] Index) [facility] (LUF/DAVID/SA) Body Temperature 2020-05-31 09:45:00 99.6 [degF] [facility] (LUF/DAVID/SA) Pulse Rate 2020-05-31 09:45:00 86 /min [facility] (LUF/DAVID/SA) Respiratory Rate 2020-05-31 09:45:00 18 /min [facility] (LUF/DAVID/SA) O2% BldC Oximetry 2020-05-31 09:45:00 98 % [facility] (LUF/DAVID/SA) BP Systolic 2020-05-31 09:45:00 118 mm[Hg] [facility] (LUF/DAVID/SA) BP Diastolic 2020-05-31 09:45:00 78 mm[Hg] [facility] (LUF/DAVID/SA) Height 2020-05-31 09:45:00 64 [in_i] [facility] (LUF/DAVID/SA) Weight 2020-05-31 09:45:00 99.79 kg [facility] (LUF/DAVID/SA) BMI (Body Mass 2020-05-31 09:45:00 38 kg/m2 [facility] (LUF/DAVID/SA) Heart Rate 2020-04-25 20:01:00 69 /min [facility] (LUF/DAVID/SA) Pulse Rate 2020-04-25 20:01:00 71 /min [facility] (LUF/DAVID/SA) Respiratory Rate 2020-04-25 20:01:00 18 /min [facility] (LUF/DAVID/SA) O2% BldC Oximetry 2020-04-25 20:01:00 100 % [facility] (LUF/DAVID/SA) BP Systolic 2020-04-25 20:01:00 126 mm[Hg] [facility] (LUF/DAVID/SA) BP Diastolic 2020-04-25 20:01:00 86 mm[Hg] [facility] (LUF/DAVID/SA) Body Temperature 2020-04-25 16:50:00 98.4 [degF] [facility] (LUF/DAVID/SA) Height 2020-04-25 16:50:00 64 [in_i] [facility] (LUF/DAVID/SA) Weight 2020-04-25 16:50:00 220 [lb_av] [facility] (LUF/DAVID/SA) BMI (Body Mass 2020-04-25 16:50:00 38 kg/m2 [facility]) [facility] (LUF/DAVID/SA) Heart Rate 2020-03-20 18:18:00 112 /min [facility] (LUF/DAVID/SA) Pulse Rate 2020-03-20 18:16:00 93 /min [facility] (LUF/DAVID/SA) O2% BldC Oximetry 2020-03-20 18:16:00 92 % [facility] (LUF/DAVID/SA) BP Systolic 2020-03-20 18:16:00 127 mm[Hg] [facility] (LUF/DAVID/SA) BP Diastolic 2020-03-20 18:16:00 85 mm[Hg] [facility] (LUF/DAVID/SA) Body Temperature 2020-03-20 17:17:00 99.2 [degF] [facility] (LUF/DAVID/SA) Respiratory Rate 2020-03-20 17:17:00 19 /min [facility] (LUF/DAVID/SA) Height 2020-03-20 17:17:00 64 [in_i] [facility] (LUF/DAVID/SA) Weight 2020-03-20 17:17:00 106.9 kg [facility] (LUF/DAVID/SA) BMI (Body Mass 2020-03-20 17:17:00 40.7 kg/m2 [facility]) [facility] (LUF/DAVID/SA) Respiratory Rate 2020-03-17 10:33:00 16 /min [facility] (LUF/DAVID/SA) Body Temperature 2020-03-17 07:54:00 97.9 [degF] [facility] (LUF/DAVID/SA) Pulse Rate 2020-03-17 07:54:00 83 /min [facility] (LUF/DAVID/SA) O2% BldC Oximetry 2020-03-17 07:54:00 96 % [facility] (LUF/DAVID/SA) BP Systolic 2020-03-17 07:54:00 107 mm[Hg] [facility] (LUF/DAVID/SA) BP Diastolic 2020-03-17 07:54:00 75 mm[Hg] [facility] (LUF/DAVID/SA) Weight 2020-03-17 00:09:00 105.6 kg [facility] (LUF/DAVID/SA) Heart Rate 2020-03-13 15:46:00 81 /min [facility] (LUF/DAVID/SA) Height 2020-03-13 15:31:00 64 [in_i] [facility] (LUF/DAVID/SA) Body Temperature 2020-03-02 15:20:00 98.6 [degF] [facility] (LUF/DAVID/SA) Pulse Rate 2020-03-02 15:20:00 86 /min [facility] (LUF/DAVID/SA) Respiratory Rate 2020-03-02 15:20:00 18 /min [facility] (LUF/DAVID/SA) O2% BldC Oximetry 2020-03-02 15:20:00 99 % [facility] (LUF/DAVID/SA) BP Systolic 2020-03-02 15:20:00 131 mm[Hg] [facility] (LUF/DAVID/SA) BP Diastolic 2020-03-02 15:20:00 85 mm[Hg] [facility] (LUF/DAVID/SA) Height 2020-03-01 10:54:00 64 [in_i] [facility] (LUF/DAVID/SA) Weight 2020-03-01 10:54:00 102 kg [facility] (LUF/DAVID/SA) BMI (Body Mass 2020-03-01 10:54:00 38.8 kg/m2 [facility] (LUF/DAVID/SA) Respiratory Rate 2020-02-27 07:47:00 16 /min [facility] (LUF/DAVID/SA) Body Temperature 2020-02-27 07:32:00 98.2 [degF] [facility] (LUF/DAVID/SA) Pulse Rate 2020-02-27 07:32:00 94 /min [facility] (LUF/DAVID/SA) O2% BldC Oximetry 2020-02-27 07:32:00 95 % [facility] (LUF/DAVID/SA) BP Systolic 2020-02-27 07:32:00 111 mm[Hg] [facility] (LUF/DAVID/SA) BP Diastolic 2020-02-27 07:32:00 56 mm[Hg] [facility] (LUF/DAVID/SA) Weight 2020-02-26 02:09:00 99.6 kg [facility] (LUF/DAVID/SA) Height 2020-02-25 10:03:00 64 [in_i] [facility] (LUF/DAVID/SA) Body Temperature 2020-02-25 00:52:00 97.9 [degF] [facility] (LUF/DAVID/SA) Pulse Rate 2020-02-25 00:52:00 118 /min [facility] (LUF/DAVID/SA) Respiratory Rate 2020-02-25 00:52:00 18 /min [facility] (LUF/DAVID/SA) O2% BldC Oximetry 2020-02-25 00:52:00 97 % [facility] (LUF/DAVID/SA) BP Systolic 2020-02-25 00:52:00 133 mm[Hg] [facility] (LUF/DAVID/SA) BP Diastolic 2020-02-25 00:52:00 67 mm[Hg] [facility] (LUF/DAVID/SA) Height 2020-02-25 00:47:00 64 [in_i] [facility] (LUF/DAVID/SA) Weight 2020-02-25 00:47:00 103.4 kg [facility] (LUF/DAVID/SA) BMI (Body Mass 2020-02-25 00:47:00 39.3 kg/m2 [facility] (LUF/DAVID/SA) Body Temperature 2020-01-25 11:32:00 98.4 [degF] [facility] (LUF/DAVID/SA) Pulse Rate 2020-01-25 11:32:00 81 /min [facility] (LUF/DAVID/SA) Respiratory Rate 2020-01-25 11:32:00 14 /min [facility] (LUF/DAVID/SA) O2% BldC Oximetry 2020-01-25 11:32:00 98 % [facility] (LUF/DAVID/SA) BP Systolic 2020-01-25 11:32:00 139 mm[Hg] [facility] (LUF/DAVID/SA) BP Diastolic 2020-01-25 11:32:00 89 mm[Hg] [facility] (LUF/DAVID/SA) Height 2020-01-25 11:32:00 64 [in_i] [facility] (LUF/DAVID/SA) Weight 2020-01-25 11:32:00 100.5 kg [facility] (LUF/DAVID/SA) BMI (Body Mass 2020-01-25 11:32:00 38.2 kg/m2 [facility] Index) [facility] (LUF/DAVID/SA) Heart Rate 2019-11-24 04:16:00 84 /min [facility] (LUF/DAVID/SA) Pulse Rate 2019-11-24 04:16:00 90 /min [facility] (LUF/DAVID/SA) Respiratory Rate 2019-11-24 04:16:00 26 /min [facility] (LUF/DAVID/SA) O2% BldC Oximetry 2019-11-24 04:16:00 98 % [facility] (LUF/DAVID/SA) BP Systolic 2019-11-24 04:16:00 106 mm[Hg] [facility] (LUF/DAVID/SA) BP Diastolic 2019-11-24 04:16:00 69 mm[Hg] [facility] (LUF/DAVID/SA) Body Temperature 2019-11-24 00:54:00 98.4 [degF] [facility] (LUF/DAVID/SA) Height 2019-11-24 00:49:00 65 [in_i] [facility] (LUF/DAVID/SA) Weight 2019-11-24 00:49:00 103 kg [facility] (LUF/DAVID/SA) BMI (Body Mass 2019-11-24 00:49:00 37.8 kg/m2 [facility] Index) [facility] (LUF/DAVID/SA) Heart Rate 2019-10-07 22:54:00 83 /min [facility] (LUF/DAVID/SA) Respiratory Rate 2019-10-07 22:54:00 14 /min [facility] (LUF/DAVID/SA) Pulse Rate 2019-10-07 22:31:00 89 /min [facility] (LUF/DAVID/SA) O2% BldC Oximetry 2019-10-07 22:31:00 97 % [facility] (LUF/DAVID/SA) BP Systolic 2019-10-07 21:16:00 127 mm[Hg] [facility] (LUF/DAVID/SA) BP Diastolic 2019-10-07 21:16:00 85 mm[Hg] [facility] (LUF/DAVID/SA) Height 2019-10-07 20:41:00 64 [in_i] [facility] (LUF/DAVID/SA) Weight 2019-10-07 20:41:00 100.2 kg [facility] (LUF/DAVID/SA) BMI (Body Mass 2019-10-07 20:41:00 38.1 kg/m2 [facility] (LUF/DAVID/SA) Pulse Rate 2019-09-20 04:16:00 96 /min [facility] (LUF/DAVID/SA) Respiratory Rate 2019-09-20 04:16:00 9 /min [facility] (LUF/DAVID/SA) O2% BldC Oximetry 2019-09-20 04:16:00 96 % [facility] (LUF/DAVID/SA) BP Systolic 2019-09-20 04:16:00 97 mm[Hg] [facility] (LUF/DAVID/SA) BP Diastolic 2019-09-20 04:16:00 76 mm[Hg] [facility] (LUF/DAVID/SA) Body Temperature 2019-09-20 00:44:00 98 [degF] [facility] (LUF/DAVID/SA) Height 2019-09-20 00:39:00 65 [in_i] [facility] (LUF/DAVID/SA) Weight 2019-09-20 00:39:00 101.9 kg [facility] (LUF/DAVID/SA) BMI (Body Mass 2019-09-20 00:39:00 37.4 kg/m2 [facility] Index) [facility] (LUF/DAVID/SA) Pulse Rate 2019-08-17 04:31:00 81 /min [facility] (LUF/DAVID/SA) Respiratory Rate 2019-08-17 04:31:00 13 /min [facility] (LUF/DAVID/SA) O2% BldC Oximetry 2019-08-17 04:31:00 97 % [facility] (LUF/DAVID/SA) BP Systolic 2019-08-17 04:31:00 136 mm[Hg] [facility] (LUF/DAVID/SA) BP Diastolic 2019-08-17 04:31:00 75 mm[Hg] [facility] (LUF/DAVID/SA) Body Temperature 2019-08-17 02:23:00 97.6 [degF] [facility] (F/DAVID/SA) Height 2019-08-17 02:19:00 64 [in_i] [facility] (LUF/DAVID/SA) Weight 2019-08-17 02:19:00 100.6 kg [facility] (LUF/DAVID/SA) BMI (Body Mass 2019-08-17 02:19:00 38.3 kg/m2 [facility]) [facility] (LUF/DAVID/SA) Pulse Rate 2018-12-07 02:33:00 79 /min [facility] (LUF/DAVID/SA) Respiratory Rate 2018-12-07 02:33:00 15 /min [facility] (LUF/DAVID/SA) O2% BldC Oximetry 2018-12-07 02:33:00 96 % [facility] (LUF/DAVID/SA) BP Systolic 2018-12-07 02:33:00 120 mm[Hg] [facility] (LUF/DAVID/SA) BP Diastolic 2018-12-07 02:33:00 76 mm[Hg] [facility] (LUF/DAVID/SA) Body Temperature 2018-12-07 01:10:00 98.2 F [facility] (LUF/DAVID/SA) Height 2018-12-07 01:10:00 64 in [facility] (LUF/DAVID/SA) Weight Measured 2018-12-07 01:10:00 218.25 lbs [facility] (LUF/DAVID/SA) BMI (Body Mass 2018-12-07 01:10:00 37.7 kg/m2 [facility]) [facility] (LUF/DAVID/SA) Pulse Rate 2018-09-30 19:40:00 70 /min [facility] (LUF/DAVID/SA) Respiratory Rate 2018-09-30 19:40:00 21 /min [facility] (F/DAVID/SA) O2% BldC Oximetry 2018-09-30 19:40:00 100 % [facility] (F/DAVID/SA) BP Systolic 2018-09-30 19:40:00 124 mm[Hg] [facility] (LUF/DAVID/SA) BP Diastolic 2018-09-30 19:40:00 88 mm[Hg] [facility] (LUF/DAVID/SA) Body Temperature 2018-09-30 19:23:00 99.3 F [facility] (F/DAVID/SA) Height 2018-09-30 19:23:00 66 in [facility] (LUF/DAVID/SA) Weight Measured 2018-09-30 19:23:00 212.52 lbs [facility] (LUF/DAVID/SA) BMI (Body Mass 2018-09-30 19:23:00 34.5 kg/m2 [facility] Index) [facility] (F/DAVID/SA) Body Temperature 2018-09-01 13:59:00 98 F [facility] (F/DAVID/SA) Pulse Rate 2018-09-01 12:15:00 74 /min [facility] (F/DAVID/SA) Respiratory Rate 2018-09-01 12:15:00 16 /min [facility] (F/DAVID/SA) O2% BldC Oximetry 2018-09-01 12:15:00 98 % [facility] (F/DAVID/SA) BP Systolic 2018-09-01 12:15:00 131 mm[Hg] [facility] (LUF/DAVID/SA) BP Diastolic 2018-09-01 12:15:00 78 mm[Hg] [facility] (LUF/DAVID/SA) Height 2018-09-01 09:16:00 64 in [facility] (LUF/DAVID/SA) Weight Measured 2018-09-01 09:16:00 214.24 lbs [facility] (LUF/DAVID/SA) BMI (Body Mass 2018-09-01 09:16:00 37 kg/m2 [facility] Index) [facility] (LUF/DAVID/SA) Body Temperature 2018-05-13 10:58:00 99 F [facility] (LUF/DAVID/SA) Pulse Rate 2018-05-13 10:58:00 97 /min [facility] (F/DAVID/SA) Respiratory Rate 2018-05-13 10:58:00 18 /min [facility] (F/DAVID/SA) O2% BldC Oximetry 2018-05-13 10:58:00 98 % [facility] (LUF/DAVID/SA) BP Systolic 2018-05-13 10:58:00 131 mm[Hg] [facility] (LUF/DAVID/SA) BP Diastolic 2018-05-13 10:58:00 88 mm[Hg] [facility] (LUF/DAVID/SA) Height 2018-05-13 10:58:00 64 in [facility] (F/DAVID/SA) Weight Measured 2018-05-13 10:58:00 207.23 lbs [facility] Abhinav [facility] (LUF/DAVID/SA) BMI (Body Mass 2018-05-13 10:58:[address] [facility] Index) [facility] (LUF/DAVID/SA) Body Temperature 2017-12-24 08:04:00 98.7 F [facility] (F/DAVID/SA) Respiratory Rate 2017-12-24 08:04:00 18 /min [facility] (F/DAVID/SA) O2% BldC Oximetry 2017-12-24 08:04:00 98 % [facility] (F/DAVID/SA) BP Systolic 2017-12-24 08:04:00 126 mm[Hg] [facility] (LUF/DAVID/SA) BP Diastolic 2017-12-24 08:04:00 86 mm[Hg] [facility] (LUF/DAVID/SA) Weight Measured 2017-12-24 08:04:00 207.23 lbs [facility] Abhinav [facility] (F/DAVID/SA) Body Temperature 2017-06-20 23:28:00 97.4 F [facility] (LUF/DAVID/SA) Respiratory Rate 2017-06-20 23:28:00 20 /min [facility] (F/DAVID/SA) O2% BldC Oximetry 2017-06-20 23:28:00 99 % [facility] (F/DAVID/SA) BP Systolic 2017-06-20 23:28:00 107 mm[Hg] [facility] (LUF/DAVID/SA) BP Diastolic 2017-06-20 23:28:00 76 mm[Hg] [facility] (F/DAVID/SA) Height 2017-06-20 23:28:00 64 in [facility] (LUF/DAVID/SA) Weight Measured 2017-06-20 23:28:00 217.15 lbs [facility] (F/DAVID/SA) BMI (Body Mass 2017-06-20 23:28:00 37.5 [facility] (LUF/DAVID/SA) Procedures Procedure Date / Time Performing Clinician Source Performed CT ABDOMEN PELVIS WO 2022-02-19 15:49:34 Trice Harris [facility] CONTRAST [facility] LIPASE 2022-02-19 14:26:00 Trice Harris [facility] COMP. METABOLIC PANEL 2022-02-19 14:26:00 Trice Harris [facility] ([id number]) [facility] CBC WITH DIFF 2022-02-19 14:26:00 Trice Harris [facility] URINALYSIS 2022-02-19 14:26:00 Trice Harris [facility] CONSENT/REFUSAL FOR 2022-02-19 14:11:01 Doctor Unassigned, [facility] DIAGNOSIS AND TREATMENT [facility] POCT MOLECULAR FLU 2021-11-29 22:46:00 Ameena Preston [facility] INS INFUS DEV LT BASILIC 2020-03-15 00:00:[address] [facility] VN PERQ [facility] (LUF/DAVID/SA) ULTRASONOGRAPHY LT UP EXT 2020-03-15 00:00:[address] [facility] VNS GUID [facility] (LUF/DAVID/SA) ROBOTIC LAP LYSIS OF 2020-03-02 12:56:[address] [facility] ADHESIONS [facility] (LUF/DAVID/SA) LAPAROSCOPY ENTEROLYSIS 2020-03-02 00:00:[address] [facility] SEPARATE PROCEDU [facility] (LUF/DAVID/SA) COLONOSCOPY FLX DX W/COLLJ 2020-02-26 00:00:[address] [facility] SPEC WHEN PFR [facility] (LUF/DAVID/SA) ROBOTIC RIGHT OOPHORECTOMY 2019-03-21 17:09:[address] [facility] LUF (Right) [facility] (LUF/DAVID/SA) CYSTO RGP STENT PLACEMENT 2015-04-20 14:01:[address] [facility] LUF [facility] (LUF/DAVID/SA) CYSTO RGP STENT PLACEMENT 2015-04-20 14:01:[address] [facility] LUF [facility] (LUF/DAVID/SA) Hysterectomy [facility] (LUF/DAVID/SA) Total thyroidectomy [facility] (LUF/DAVID/SA) section [facility] (LUF/DAVID/SA) ABDOMINAL ADH[facility]IONS [facility] REM[facility] (LUF/DAVID/SA) Extracorporeal shockwave [facility] lithotripsy [facility] (LUF/DAVID/SA) MULTIPLE CYSTECTOMYS DONE [facility] (LUF/DAVID/SA) MULTIPLE CYSTECTOMYS DONE [facility] (LUF/DAVID/SA) ABDOMINAL ADHESIONS [facility] REMOVED [facility] (LUF/DAVID/SA) Appendectomy [facility] (LUF/DAVID/SA) Plan of Care Planned Activity Planned Date Details Comments Source Future Scheduled 2022-01-03 COVID-19 [facility]:07[facility] (#1) [code = COVID-19 And louisa Cancer Vaccination (#1)] Center Future Scheduled 2022-01-03 [...] Facility Department ID 2021-07-27 Outpatient Nba, [facility] Common 08:27:02 Josué 0127 [facility] 2021-07-26 Outpatient Nba, [facility] Common 14:20:31 Josué 1203 [facility] 2021-07-26 Outpatient Nba, STLMLC [facility] Common 14:05:52 Josué 1027 [facility] 2021-07-26 Outpatient Nba, [facility] Common 12:01:28 Josué 1103 [facility] 2021-07-26 Outpatient Nba, STLMLC [facility] Common 11:56:42 Josué 1019 [facility] 2021-07-26 Outpatient Nba, [facility] Common 11:49:38 Josué 0928 [facility] 2021-07-26 [facility] 11:48[facility]02 Josué 0922 [facility] 2021-07-26 Outpatient Nba, [facility] Common 11:47:47 Josué 0921 [facility] 2021-07-26 Outpatient Nba, [facility] Common 11:42:15 Josué 0901 [facility] 2021-07-26 Outpatient Nba, [facility] Common 11:32:09 Josué Lomeli20 [facility] 2022-02-19 2022-02-19 [facility] 1.2.840.114 [id number] Univers 09:15:00 11:05:00 Trice GAONA 350.1.13.10 i ty [facility] 4.2.7.2.686 [place] [facility] [phone] [address] 2022-02-19 2022-02-19 Emergency X [facility] ERT [id number] Univers 09:15:00 11:05:00 TRICE melo [facility] 2021-11-29 2021-11-29 Urgent [facility] 1.2.840.114 [id number] Univers 17:40:00 18:00:00 Care [facility] 350.1.13.10 it y of [place] 4.2.7.2.686 Jacques as SUE?BLEA [id number] [address] MEDICAL OFFICE BUILDING 2021-11-29 2021-11-29 Outpatient [facility] [id number] Univers 17:40:00 17:40:00 AMEENA ity [facility] 2021-10-26 2021-10-26 Office GEOVANI Blas 1.2.840.1 [id number] Univers 09:45:00 10:47:06 Visit Praveen 68531.1.1 itphoebe 3.412.2.7 [place] [phone] .8 [facility] 2021-10-26 2021-10-26 Office Shiva, 1.2.840.1 [id number] Univers 09:45:00 10:47:06 Visit Praveen 72291.1.1 ity of 3.412.2.7 [place] .3.863479 MD Carter8 [facility] 2021-10-26 2021-10-26 Travel 1.2.840.1 1.2.729.452 [id number] Univers 00:00:00 00:00:00 25696.1.1 350.1.13.41 ity of 3.412.2.7 2.2.7.3.698 [place] .3.306899 084.8 .8 [facility] 2021-10-26 2021-10-26 Travel 1.2.840.1 1.2.909.247 [id number] Univers 00:00:00 00:00:00 59987.1.1 350.1.13.41 ity of 3.412.2.7 2.[place].3.698 [place] .3.632662 084.8 .8 [facility] 2021-10-15 2021-10-15 ROSEMARIE 1 SHAMAA, [facility] 874 [id number] [facility] 22:25:00 22:45:00 [facility] 120[facility] stefanie MEHTA (LUF/LI AVE, V/SA) [place] [address] 2021-10-15 2021-10-15 Inpatient [facility] 79e1 4a53-b [facility] 00:[facility] 00:00:00 [place] [id number] [facility]ly [facility], [id number] [facility] [address] 097eaa stefanie MEHTA (LUF/LI AVE, V/SA) [place] [address] 2021-10-15 2021-10-15 Inpatient [facility] 2f6e c8b8-[address] [facility] 00:00:00 00:00:00 [place] [id number] [facility]ly [facility], [phone] Memor ia [address] [id number] l [place] (LUF/LI AVE, V/SA) [place] ROSA [address] 2021-08-07 2021-08-07 Emergency EM Tyree [facility] AMPARO [id number] [facility] 09:36:00 12:55:[address] [facility] 2021-05-30 2021-05-30 ambulatory STLMLC ST[facility] [id number] Common 00:00:00 00:00:00 [facility] 2021-05-29 2021-05-29 ambulatory STLMLC STLMLC [id number] Common 00:00:00 00:00:00 [facility] 2021-04-26 2021-04-26 Outpatient STLMLC STLMLC [id number] Common 00:00:00 00:00:00 [facility] 2021-04-23 2021-04-23 UNSPECIFIE 1 [facility] [id number] [facility] 00:46:00 02:08:00 D SETH Dhaliwal ABDOMINAL Memori a PAIN l (LUF/LI V/SA) 2021-04-23 2021-04-23 Inpatient [facility] fb ce73-5 [facility] 00:00:00 00:00:00 [place] [id number] [facility]ly [facility], [id number] Memor ia [address] [id number] l [place] (LUF/LI AVE, V/SA) [place] [address] 2021-04-23 2021-04-23 Inpatient [facility] 6aab 1878-0 [facility] 00:00:00 00:00:00 [place] [id number] [facility]ly [facility], [id number] Memor ia [address] 822c23 l [place] (LUF/LI AVE, V/SA) JULINÁ ROSA [address] 2021-03-24 2021-03-24 ANXIETY 1 YURY, [facility] 32623 [id number] [facility] 10:25:00 12:27:00 DISORDER REHAN [facility] UNSPECIFIE [place], Memor ia D [address] l [place] (LUF/LI AVE, V/SA) [place] [address] 2021-03-24 2021-03-24 Inpatient [facility] f871 cc2a-c [facility] 00:00:00 00:00:00 [place] [id number]-[id number] [facility]ly [facility], [phone] Memor ia [address] [id number] l [place] (LUF/LI AVE, V/SA) [place] [address] 2021-03-24 2021-03-24 Inpatient [facility] e945 ff19-c [facility] 00:00:00 00:00:00 [place] [id number] [facility], [id number] Memor ia [address] [id number] l [place] (LUF/LI AVE, V/SA) [place] [address] 2021-03-23 2021-03-23 Orders Nofies, 1.2.840.1 [id number] Univers 00:00:00 00:00:00 Only Viktoriya Charlton 41696.1.1 ity of 3.412.2.7 [place] .3.282511 .8 [facility] 2021-03-23 2021-03-23 Orders Nofies, 1.2.840.1 [id number] Univers 00:00:00 00:00:00 Only Viktoriya Charlton 50025.1.1 ity of 3.412.2.7 [place] .3.908153 .8 [facility] 2021-03-10 2021-03-10 UTI SITE E RODRICK, [facility] 0100 [id number] [facility] 10:29:00 13:50:00 NOT JUAN [facility], Memori a [address] [place] (LUF/LI AVE, V/SA) [place] [address] 2021-03-10 2021-03-10 Inpatient [facility] 16e7 6598-b [facility] 00:00:00 00:00:00 [place] [id number] [facility], [id number] Memor ia [address] [id number] l [place] (LUF/LI AVE, V/[place]) [place] [address] 2021-03-10 2021-03-10 Inpatient [facility] 518c 3339-c [facility] 00:00:00 00:00:00 [place] [id number] [facility], [id number] Memor ia [address] [id number] l [place] (LUF/LI AVE, V/SA) [place] [address] 2021-02-23 2021-02-23 RIGHT E [facility] [id number] 08:15:00 12:44:00 LOWER [facility], Memoria PAIN [address] [place] (LUF/LI AVE, V/SA) [place] [address] 2021-02-23 2021-02-23 Inpatient [facility] 89b5 d1de-[address] 00:00:00 00:00:00 [place] [id number] [facility], [id number] Memor ia [address] [id number] l [place] (LUF/LI AVE, V/SA) [place] [address] 2021-02-23 2021-02-23 Inpatient [facility] 8500 e20f-[address] 00:00:00 00:00:00 [place] [id number] [facility], [id number] Memor ia [address] 1655de l [place] (LUF/LI AVE, V/SA) [place] [address] 2021-01-10 2021-01-10 CALCULUS E JANIA, [facility] [id number] 00:21:00 03:06:00 OF KIDNEY SETH [facility] Memoria [address] [place] (LUF/LI AVE, V/SA) [place] [address] 2021-01-10 2021-01-10 Inpatient [facility] ff0d 2205-c [facility] 00:00:00 00:00:00 [place] [id number] [facility]ly [facility], [id number] Memor ia [address] [id number] l [place] (LUF/LI AVE, V/SA) [place] [address] 2021-01-10 2021-01-10 Inpatient [facility] fe83-e [facility] 00:00:00 00:00:00 [place] [id number] [facility]ly [facility], [id number] Memor ia [address] [id number] l [place] (LUF/LI AVE, V/SA) [place] [address] 2020-12-27 2020-12-27 Emergency [facility] Zarina [id number] Vickery 00:00:00 00:00:[address] 2020-12-22 2020-12-22 Outpatient 3 BETOMATEOLONI [facility] [id number] [facility] 09:00:00 09:00:00 SKYE Dhaliwal Memoria l (LUF/LI V/SA) 2020-12-13 2020-12-13 Emergency EM [place], [facility] [id number] [facility] 01:53:00 06:36:[address] [place] [address] 2020-12-12 2020-12-12 RIGHT E COTTON, [facility] 95915 [id number] [facility] 12:33:00 14:00:00 [facility], Memoria PAIN [address] [place] (LUF/LI AVE, V/SA) [place] [address] 2020-12-12 2020-12-12 Inpatient [facility] e2c0 cb47-b [facility] 00:[facility] 00:00:00 [place] [id number] [facility], [id number] Memor ia [address] [id number] l [place] (LUF/LI AVE, V/SA) [place] [address] 2020-12-12 2020-12-12 Inpatient [facility] 43ed f7fe-4 [facility] 00:00:00 00:00:00 [place] [id number] [facility]ly [facility], [id number] Memor ia [address] 70ade3 l [place] (LUF/LI AVE, V/SA) [place] [address] 2020-12-08 2020-12-08 UNSPECIFIE Jake SOTOMAYOR, [facility] [id number] [id number] [facility] 09:44:00 12:26:00 D WYATT [facility], [facility] a PAIN [address] [place] (LUF/LI AVE, V/SA) [place] [address] 2020-12-08 2020-12-08 Inpatient [facility] 6a3f a794-a [facility] 00:00:00 00:00:00 [place] [id number] Formerly [facility], [id number] Memor ia [address] [id number] l [place] (LUF/LI AVE, V/[place]) [place] [address] 2020-11-25 2020-11-25 UNSPECIFIE [facility] [place] [address] [id number] [facility] 00:13:00 00:30:00 D [facility], [facility] a PAIN [address] [place] (LUF/LI AVE, V/SA) [place] [address] 2020-11-25 2020-11-25 Inpatient [facility] 3041 db6a-0 [facility] 00:00:00 00:00:00 [place] [id number] [facility], [id number] Memor ia [address] [id number] l [place] (LUF/LI AVE, V/[place]) [place] [address] 2020-11-25 2020-11-25 Inpatient [facility] a3eb ed11-a [facility] 00:00:00 00:00:00 [place] [id number] Formerly [facility], [id number] Memor ia [address] [id number] l [place] (LUF/LI AVE, V/SA) [place] [address] 2020-11-21 2020-11-21 ENDOMETRIO 1 [facility] [id number] 07:14:00 09:53:00 SIS [facility] Memor ia D [address] [place] (LUF/LI AVE, V/SA) [place] [address] 2020-11-21 2020-11-21 Inpatient [facility] 90f0 278b-[address] 00:00:00 00:00:00 [place] [id number] Formerly [facility], 4bb-[id number] Memor ia [address] [id number] l [place] (LUF/LI AVE, V/SA) [place] [address] 2020-11-21 2020-11-21 Inpatient [facility] 3b21 [id number] 00:00:00 00:00:00 [place] 30a-[id number] Formerly [facility], [id number] Memor ia [address] [id number] l [place] (LUF/LI AVE, V/SA) [place] [address] 2020-11-14 2020-11-[address] [facility] [id number] 09:27:00 14:37:[address] [facility] WITHOUT Memoria BLEEDING l (LUF/LI V/SA) 2020-11-14 2020-11-14 Inpatient [facility] d4fe d3e2-[address] 00:00:00 00:00:00 [place] [id number] [facility]ly [facility], [id number] Memor ia [address] [id number] l [place] (LUF/LI AVE, V/SA) [place], [place] [address] 2020-11-14 2020-11-14 Inpatient [facility] 324e 65b9-b [facility] 00:00:00 00:00:00 [place] [id number] [facility]ly [facility], [id number] Memor ia [address] [id number] l [place] (LUF/LI AVE, V/SA) [place], [place]ULIÁN [address] 2020-11-08 2020-11-08 OTHER E COTTON, [facility] [id number] 08:04:00 13:13:00 CHRONIC REHAN [place] Isra PAIN [place], Memoria [address] [place] (LUF/LI AVE, V/SA) [place], [place]ULIÁN [address] 2020-11-08 2020-11-08 Inpatient [facility] 8079 b52c-c [facility] 00:00:00 00:00:00 [place] [id number] [facility], [id number] Memor ia [address] [id number] l [place] (LUF/LI AVE, V/[place]) [place] [address] 2020-11-08 2020-11-08 Inpatient [facility] 0f07 dc59-5 [facility] 00:00:00 00:00:00 [place] [id number] [facility]ly [facility], [id number] Memor ia [address] [id number] l [place] (LUF/LI AVE, V/SA) [place] [address] 2020-11-08 2020-11-08 Inpatient [facility] 40b4 e14c-1 [facility] 00:00:00 00:00:00 [place] [id number] [facility], [id number] Memor ia [address] [id number] l [place] (LUF/LI AVE, V/SA) [place], [place] [address] 2020-11-01 2020-11-01 NAUSEA Jake WANDA, [facility] 33040 [id number] [facility] 00:27:00 03:55:00 WITH CLEMENT [facility], [facility] UNSPECIFIE [address] l D [place] (LUF/LI AVE, V/SA) [place] [address] 2020-11-01 2020-11-01 Inpatient [facility] 1ec3 64c1-c [facility] 00:00:00 00:00:00 [place] [id number] [facility], [id number] Memor ia [address] [id number] l [place] (LUF/LI AVE, V/SA) [place] [address] 2020-11-01 2020-11-01 Inpatient [facility] 79c0 b023-2 [facility] 00:00:00 00:00:00 [place] [id number] [facility], [id number] Memor ia [address] [id number] l [place] (LUF/LI AVE, V/SA) [place] [address] 2020-10-04 2020-10-05 OTHER E LEONARDUK, [facility] [address] 23:32:00 01:00:00 CHRONIC JUAN [place] [facility] [place], Memoria [address] [place] (LUF/LI AVE, V/SA) [place] [address] 2020-10-04 2020-10-04 Inpatient [facility] b016 f3f5-a [facility] 00:00:00 00:00:00 [place] [id number] [facility], [id number] Memor ia [address] [id number] l [place] (LUF/LI AVE, V/SA) [place] [address] 2020-10-04 2020-10-04 Inpatient [facility] ea96 0c7a-[address] 00:00:00 00:00:00 [place] 25c-4997-[id number] [facility], [id number] Memor ia [address] [id number] l [place] (LUF/LI AVE, V/SA) [place] [address] 2020-09-18 2020-09-18 OTHER E [facility] [id number] 01:00:00 04:44:00 CHRONIC [place] [facility] [place], [facility] [address] [place] (LUF/LI AVE, V/SA) [place] [address] 2020-09-18 2020-09-18 Inpatient [facility] b80a 7ee5-[address] 00:00:00 00:00:00 [place] [id number] [facility], [id number] Memor ia [address] [id number] l [place] (LUF/LI AVE, V/SA) [place] [address] 2020-09-18 2020-09-18 Inpatient [facility] 1a33 0198-a [facility] 00:00:00 00:00:00 [place] [id number] [facility], [id number] Memor ia [address] [id number] l [place] (LUF/LI AVE, V/SA) [place] [address] 2020-09-122020-09-12 ENDOMETRIO E SANANAVDEEP, [facility] [id number] [facility] 00:46:00 02:38:00 SIS [facility] UNSPECIFIE [place], Memor ia D [address] [place] (LUF/LI AVE, V/SA) [place] [address] 2020-09-12 2020-09-12 Inpatient [facility] 726d 153b-a [facility] 00:00:00 00:00:00 [place] q1k-[id number] [facility], [id number] Memor ia [address] [id number] l [place] (LUF/LI AVE, V/SA) [place] [address] 2020-09-12 2020-09-12 Inpatient [facility] 9a2d b59c-c [facility] 00:00:00 00:00:00 [place] [id number] [facility], [id number] Memor ia [address] 655cce l [place] (LUF/LI AVE, V/SA) [place] [address] 2020-08-22 2020-08-22 OTHER E SANACIUK, [facility] 61477 15363 [facility] 01:13:00 03:24:00 CHRONIC [facility] PAIN [place], Memoria [address] [place] (LUF/LI AVE, V/SA) [place] [address] 2020-08-22 2020-08-22 Inpatient [facility] 7a1d d2a9-[address] [facility] 00:00:00 00:00:00 [place] [id number] [facility], [id number] Memor ia [address] [id number] l [place] (LUF/LI AVE, V/SA) [place] [address] 2020-08-22 2020-08-22 Inpatient [facility] 53d3 2542-f [facility] 00:00:00 00:00:00 [place] [id number]-[id number] [facility], [id number] Memor ia [address] [id number] l [place] (LUF/LI AVE, V/SA) [place] [address] 2020-08-06 2020-08-06 Inpatient Jake MENSAH, [facility] [id number] [facility] 01:21:00 03:35:00 [facility] [address] [place] (LUF/LI AVE, V/SA) [place] [address] 2020-08-06 2020-08-06 Inpatient [facility] 07b7 067c-a [facility] 00:00:00 00:00:00 [place] [id number] [facility], [id number] Memor ia [address] [id number] l [place] (LUF/LI AVE, V/SA) [place] [address] 2020-07-19 2020-07-19 RIGHT Jake COTTON, [facility] [place] [id number] [facility] 07:50:00 11:20:00 [facility] PAIN [address] [place] (LUF/LI AVE, V/SA) [place] [address] 2020-07-19 2020-07-19 Inpatient [facility] 625d 6050-c [facility] 00:00:00 00:00:00 [place] [id number] [facility]ly [facility], [id number] Memor ia [id number], V/SA) [place] [address] 2020-07-19 2020-07-19 Inpatient [facility] [id number] [facility] 00:00:00 00:00:00 [place] [id number] [facility]ly [facility], [id number] Memor ia [address] [id number] [address] ([address], V/SA) [place] [address] 2020-07-05 2020-07-05 OTHER Jake MENSAH, [facility] [id number] [facility] 02:42:00 05:00:00 [facility] [address], V/SA) [place] [address] 2020-07-052020-07-05 Inpatient [facility] [id number] [facility] 00:[facility] 00:00:00 [place] [id number] [facility]ly [facility], [id number] Memor ia [id number] [address] ([address], V/SA) [place], [place] [address] 2020-07-05 2020-07-05 Inpatient [facility] [id number] [facility] 00:00:00 00:00:00 [place] [id number] [facility]ly [facility], [id number] Memor ia [address] [id number] [address] ([address], V/SA) [place], [place] [address] 2020-06-10 2020-06-10 Outpatient STLMLC [facility] [id number] Common 00:00:00 00:00:00 [facility] 2020-06-07 2020-06-07 Inpatient 1 [place] [id number] [facility] 12:56:00 19:04:00 [facility] [address], V/SA) [place], [place] [address] 2020-06-07 2020-06-07 Inpatient [facility] [id number] [facility] 00:00:00 00:00:00 [place] [id number] [facility], [id number] Memor ia [id number] [address], V/SA) [place] [address] 2020-05-31 2020-05-31 Inpatient E [place] [id number] 09:31:00 14:13:00 [facility] [address], V/SA) [place] [address] 2020-05-10 2020-05-10 Outpatient STLMLC STLMLC [id number] Common 00:00:00 00:00:00 [facility] 2020-05-09 2020-05-09 Outpatient STLMLC STLMLC [id number] Common 00:00:00 00:00:00 [facility] 2020-05-05 2020-05-05 Outpatient STLMLC STLMLC [id number] Common 00:00:00 00:00:00 [facility] 2020-05-02 2020-05-02 Outpatient STLMLC STLMLC [id number] Common 00:00:00 00:00:00 [facility] 2020-05-02 2020-05-02 Outpatient STLMLC STLMLC [id number] Common 00:00:00 00:00:00 [facility] 2020-04-29 2020-04-29 Outpatient STLMLC STLMLC [id number] Common 00:00:00 00:00:00 [facility] 2020-04-25 2020-04-25 LEFT LOWER E [facility] [id number] 16:46:00 21:30:00 QUADRANT [facility] [address] ([address], V[address]SA) [place] [address] 2020-04-22 2020-04-22 Outpatient STLMLC STLMLC [id number] Common 00:00:00 00:00:00 [facility] 2020-04-20 2020-04-20 PROC&TX [facility] [id number] 15:39:00 16:03:00 NOT [facility] OUT PT [address] ([address], V/SA) [place] [address] 2020-04-20 2020-04-20 Outpatient STLMLC STLMLC [id number] Common 00:00:00 00:00:00 [facility] 2020-04-20 2020-04-20 Outpatient STLMLC STLMLC [id number] Common 00:00:00 00:00:00 [facility] 2020-04-15 2020-04-15 Outpatient STLMLC STLMLC [id number] Common 00:00:00 00:00:00 [facility] 2020-04-13 2020-04-13 Outpatient STLMLC STLMLC [id number] Common 00:00:00 00:00:00 [facility] 2020-04-12 2020-04-12 Outpatient STLMLC STLMLC [id number] Common 00:00:00 00:00:00 [facility] 2020-04-11 2020-04-11 Outpatient STLMLC STLMLC [id number] Common 00:00:00 00:00:00 [facility] 2020-04-08 2020-04-08 Outpatient STLMLC STLMLC [id number] Common 00:00:00 00:00:00 [facility] 2020-04-06 2020-04-06 Outpatient STLMLC STLMLC [id number] Common 00:00:00 00:00:00 [facility] 2020-04-04 2020-04-04 Outpatient STLMLC STLMLC [id number] Common 00:00:00 00:00:00 [facility] 2020-03-31 2020-03-31 Outpatient STLMLC STLMLC [id number] Common 00:00:00 00:00:00 [facility] 2020-03-29 2020-03-29 Outpatient GEOVANI BLAS MDA MDA [id number] MD 00:00:00 00:00:00 PRAVEEN payton 2020-03-29 2020-03-29 Outpatient STLMLC STLMLC [id number] Common 00:00:00 00:00:00 [facility] 2020-03-28 2020-03-28 Outpatient STLMLC STLMLC [id number] Common 00:00:00 00:00:00 [facility] 2020-03-22 2020-03-22 Outpatient STLMLC STLMLC [id number] Common 00:00:00 00:00:00 [facility] 2020-03-21 2020-03-21 Outpatient STLMLC STLMLC [id number] Common 00:00:00 00:00:00 [facility] 2020-03-20 2020-03-20 AD [place] [id number] 17:08:00 22:56:00 ABDOMINAL [place]IN [place], Memoria UNSPECIFIE [address] (LUF/LI A[address], V/SA) [place] [address] 2020-03-14 2020-03-17 CELLULITIS E TRUX, [facility] [id number] [facility] 14:54:00 11:30:00 OF MORAVIAN [facility] [place]OM[place]AL [place], [facility], Incori a WALL [address] ([address]F/LI A[address], V/SA) [place] [address] 2020-03-03 2020-03-03 [facility] [id number] Common 13:33:00 13:33:00 Clinics [facility] 2020-03-02 2020-03-02 FE RYAN WOLFE, [facility] [id number] 05:58:00 15:35:00 PERITON LIZBETH [facility] ADHES [place], [facility], Incoria POSTINFECT [address] (LUF/LI A[address], V/SA) [place] [address] 2020-03-02 2020-03-02 [facility] [id number] Common 00:00:00 00:00:00 [facility] 2020-03-01 2020-03-01 [facility] [id number] Common 09:15:00 09:15:00 [facility] 2020-02-29 2020-02-29 [facility] [id number] Common 09:30:00 09:30:00 [facility] 2020-02-25 2020-02-27 FEDE COTTON, [facility] 69394 [id number] [facility] 13:21:00 12:09:00 ABDOMINAL REHAN [facility] PAIN [place], [facility] UNSPECIFIE [address] (LUF/LI A[address], V/SA) [place] [address] 2020-02-25 2020-02-25 UNSPECIFLUC MENSAH, [facility] [id number] [facility] 00:40:00 05:00:00 D JUAN [facility] ABDOM[place]AL [place], [facility], Incori a PAIN [address] ([address]F/LI A[address], V/SA) [place] [address] 2020-01-25 2020-01-25 LOW BACK 1 COTTON, [facility] [place] 050480 [id number] [facility] 11:28:00 13:15:00 PAIN REHAN [facility], Memoria [address] ([address]F/LI [address], V/SA) [place] [address] 2020-01-18 2020-01-18 Outpatient [facility] [id number] Common 11:45:00 11:45:00 [facility] Women's [facility] 2019-12-09 2019-12-09 OTHER E [facility] [id number] 03:03:00 05:08:00 CHRONIC [facility] PAIN [place], Memoria [address] ([address]F/LI [address], V/SA) [place] [address] 2019-11-24 2019-11-24 UNSPECIFIE E [facility] [place] [id number] 00:31:00 05:30:00 D [facility] ABDOMINAL [place], Memori a PAIN [address] ([address]F/LI [address], V/SA) [facility] [place] [address] 2019-10-07 2019-10-07 RIGHT 1 COTTON, [facility] [place] [id number] 20:35:00 23:10:00 LOWER [facility] QUADRANT [place], Memoria PAIN [address] ([address], V/SA) [place] [address] 2019-09-20 2019-09-20 RIGHT 1 COTTON, [facility] [place] [id number] 00:33:00 04:23:00 LOWER [facility] QUADRANT [place], [facility], Incoria PAIN [address] ([address]F/LI [address], V/SA) [place] [address] 2019-08-17 2019-08-17 UNSPECIFIE 1 TRUX, [facility] [id number] 02:18:00 04:45:00 D MORAVIAN [facility] ABDOMINAL [place], Memori a PAIN [address] ([address]F/LI [address], V/SA) [place] [address] 2019-04-22 2019-04-22 Outpatient [facility] [id number] Common 12:03:00 12:03:00 Clinics [facility] Women's [facility] Health [facility] 2019-04-14 2019-04-14 Outpatient [facility] [id number] Common 16:12:00 16:12:00 Clinics [facility] 2019-04-06 2019-04-06 Outpatient [facility] [id number] Common 12:16:00 12:16:00 Clinics [facility] 2019-03-31 2019-03-31 Outpatient [facility] [id number] Common 14:00:00 14:00:00 [facility] Health [facility] 2018-12-07 2018-12-07 UNSPECIFIE 1 QUINTIN BRITO [facility] [id number] [facility] 01:06:00 04:45:00 D OVARIAN [place] Luke s CYST RIGHT [facility] ia SIDE [address] ([address]/LI [address], V/SA) [place] [address] 2018-10-29 2018-10-29 N-PRSS CHR [place], [facility] [id number] [facility] 06:59:00 23:59:00 [facility] [address] ([address]/LI [address], V/SA) [place] [address] 2018-10-22 2018-10-22 N-PRSS CHR [place], [facility] [id number] [facility] 07:20:00 23:59:00 ULCR SKIN MIKY [place] [facility] [address] ([address], V/SA) [place] [address] 2018-10-15 2018-10-15 N-PRSS CHR O [place], [facility] [id number] [facility] 07:08:00 23:59:00 [facility]IN [facility] [address] ([address]F/LI [address], V/SA) [place] [address] 2018-09-30 2018-10-01 INFCT FOL 1 SHABNAM, [facility] [id number] [facility] 18:46:00 01:05:00 PRC SUPF DIMAS [facility] INC SRG [facility] SIT INIT [address] ([address], V/SA) [place] [address] 2018-09-01 2018-09-01 OTH 1 WANDA, [facility] [place] [id number] [facility] 09:12:00 14:00:00 NONINFL CLEMENT [facility] D/O OVARY [place], [facility], Incori a TUBE&BRD [address] (LUF/LI A[address], V/SA) [place] [address] 2018-05-13 2018-05-13 Inpatient 1 WANDA, [facility] [place] [address] [id number] 10:52:00 13:46:[address] [address] ([address]/LI [address], V/SA) [place] [address] 2017-12-24 2017-12-24 UNSPECIFIE 1 QUINTIN BRITO [facility] [id number] [facility] 07:51:00 13:52:00 D OVARIAN [facility] CYST RIGHT [place], [facility], Incor ia SIDE [address] ([address]F/LI [address], V/SA) [place] [address] 2017-06-20 2017-06-21 HYDRONPHRO 1 RODRICK, [facility] [id number] [facility] 23:01:00 03:55:00 S JUAN [facility] RENL&URETR [place], [facility], Incor ia L CALCUL [address] (LUF/LI A[address], V/SA) [place] [address] 2017-05-13 2017-05-13 OTHER 3 MERLE, [facility] [place] [id number] 15:40:00 23:59:00 FATIGUE ASA [facility] [address] ([address], V/SA) [place] [address] Results Test Description Test Time Test Comments Results Result Comments Source COMP. METABOLIC PANEL (59959) 2022-02-19 14:56:05 Test Item Value Reference Range Interpretation Comme nts NA (test code = 6490684525) 137 mmol/L 135-145 K (test code = 2315481368) 4.2 mmol/L 3.5-5 CL (test code = 9382203577) 108 mmol/L 98-108 CO2 TOTAL (test code = 2060515475) 19 mmol/L 23-31 L AGAP (test code = 3579854584) 2-16 BUN (test code = 1779204735) 14 mg/dL 7-23 GLUCOSE (test code = 2537622107) 133 mg/dL 70-110 H CREATININE (test code = 0.56 mg/dL 0.5-1.04 1860799252) TOTAL BILI (test code = 0.4 mg/dL 0.1-1.2 1150898170) CALCIUM (test code = 1592227065) 8.9 mg/dL 8.6-10.6 T PROTEIN (test code = 8787381799) 6.5 g/dL 6.3-8.2 ALBUMIN (test code = 6809287585) 4.0 g/dL 3.5-5 ALK PHOS (test code = 2101049688) 84 U/L 34-122 ALTv (test code = 1742-6) 23 U/L 5-35 AST(SGOT) (test code = 9906887615) 24 U/L 13-40 eGFR (test code = 1817351372) mL/min/1.73m2 RENZO (test code = RENZO) Association [...] tests). Lab Interpretation (test code = Abnormal 26523-6) [facility] 14[facility]55:44 Test Item Value Reference Range Interpretation Comments LIPASE (test code = 2611242471) 81 U/L 0-220 Lab Interpretation (test code = Normal 40186-9) [facility] WITH [id number] 14:36:26 Test Item Value Reference Range Interpretation Comments WBC (test code = See_Comment [Automated 7190-2) message] The sy stem which generated this result transmitted reference range : 4.30 - 11.10 10*3/?L. The reference range was not used to interpret this result as normal/abnormal . RBC (test code = See_Comment [Automated 419-8) message] The sy stem which generated this [...] RDW-SD (test code = 43.9 fL 39-49.9 67085-5) RDW-CV (test code = 13.7 % 12-15.5 788-0) PLT (test code = See_Comment [Automated 777-3) message] The sy stem which generated this result transmitted reference range : 166 - 358 10*3/ ?L. The reference r bruce was not used to interpret this result as normal/abnormal . MPV (test code = 8.5 fL 9.5-12.9 L 71090-3) NRBC/100 WBC (test See_Comment [Automat ed code = 6723940331) message] The system which generated this result transmitted reference range : 0.0 - 10.0 /100 WBCs. The refer ence range was not u sed to interpret th is result as normal/abnormal . NRBC x10^3 (test code See_Comment [Auto mated = 3843999556) message] The s ystem which generated this result transmitted reference range : 10*3/?L. The reference range was not used to interpret this result as normal/abnormal . GRAN MAT (NEUT) % 58.7 % (test code = 770-8) IMM GRAN % (test code 1.10 % = 7479968068) LYMPH % (test code = 31.6 % 736-9) MONO % (test code = 6.8 % 5905-5) EOS % (test code = 1.4 % 713-8) BASO % (test code = 0.4 % 706-2) GRAN MAT x10^3(ANC) 3.30 10*3/uL 1.88-7.09 (test code = 5601282245) IMM GRAN x10^3 (test 0.06 10*3/uL 0-0.06 code = 6276237582) LYMPH x10^3 (test code 1.77 10*3/uL 1.32-3.29 = 731-0) MONO x10^3 (test code 0.38 10*3/uL 0.33-0.92 = 742-7) EOS x10^3 (test code = 0.08 10*3/uL 0.03-0.39 711-2) BASO x10^3 (test code 0.01-0.07 = 704-7) Lab Interpretation Abnormal (test code = 45790-0) [facility] [id number] 22:58:14 Test Item Value Reference Range Interpretation Comments POCT Molecular FluA (test code = Negative Negative 98907-7) POCT Molecular FluB (test code = Negative Negative 81167-5) Lab Interpretation (test code = Normal 43011-4) [facility] (LIVER)2021-10-16 13:57:00 Test [...] (test code = 0.2 mg/dl 0.0-1.1 IBIL) [id number] 13:57:00 Test Item Value Reference Range Interpretation Comments Lipase (test code = LIPA) 114 U/L 73-393 AMYLASE, [id number] 13:57:00 Test Item Value Reference Range Interpretation Comments Amylase (test code = AMYL) 51 U/L 25-115 STAT LAB CHEM [id number] 22:45:00 Test Item Value Reference Range Interpretation [...] 24.0-29.0 L STAT LAB CBC WITH AUTO [id number] 22:43:00 Test Item Value Reference Range Interpretation [...] = IG%) 0.2 % 0.0-0.4 HEPATIC FUNCTION [id number] 13:03:00 Test Item Value Reference Range Interpretation [...] 96 Unit/L 45-117 N code = ALKP) [id number] 13:03:00 Test Item Value Reference Range Interpretation Comments LIPASE (test code = LIP) 83 Unit/L 114-286 L BASIC METABOLIC [id number] 13:03:00 Test Item Value Reference Range Interpretation [...] 8.5-10.1 N UA RFLX MICR CULT IF [id number] 12:44:00 Test Item Value Reference Range Interpretation [...] OF URINE: CLEAN CATCH- CT ABD PELVIS [id number] 12:27:00 [facility] : 1985 Sex: F Name: LAUREN BETH [facility] : 1985 Age/S: 36 / F [address] Unit #: [id number]: [place] [address] Phys: Marco Hilton [employer] Acct: [id number] Dis Date: Status: REG ER PHONE #: [phone] Exam Date: 08/07/2021 1223 FAX #: Reason: LLQ ABD PAIN EXAMS: CPT: [id number] CT ABD PELVIS W/CONT 76608 EXAM: CT ABDOMEN AND PELVIS WITH CONTRAST. [...] 1 Signed Report (CONTINUED) Name: [facility]UREN BETH [facility] : 1985 Age/S: 36 / F [address] Unit #: [id number] Loc: Julián Holcomb [address] Phys: Marco Hilton NP Acct: [id number] Dis Date: Status: REG ER PHONE #: [phone] Exam Date: 08/07/2021 1223 FAX #: Reason: LLQ ABD PAIN EXAMS: CPT: [id number] CT ABD PELVIS W/CONT 58380 <Continued> at 1227 Reported and signed by: Alma Cartwright M.D. CC: Olga Clements DO; Marco Hilton NP Technologist:RT Danyelle(R) CTDI: DLP: Trnscb Date/Time: 08/07/2021 (1227) [email or web address] Orig Print D/T: S: 08/07/2021 (4833) PAGE 2 Signed ReportCBC W/AUTO [id number] 12:23:00 Test Item Value Reference Range Interpretation [...] DIFF/SCN CRITERIA = MDIFF) CORONAVIRUS 2019 (IN [place])(3HR)2021-03-24 17:04:00 Test Item Value Reference Range Interpretation [...] contact the [facility] at [phone]. [id number] 12:37:00 Test Item Value Reference Range Interpretation [...] 0.5-1.3 code = CREA) EGFR if >60 Panamanian (test code mL/min/1.73m\\ = EGFRAA) S\\2 EGFR if Non- >60 Estimate d Glomerular [place]ian (test code mL/min/1.73m\\ Filtrat ion Rate (eGFR) [...] of c hronic kidney failure. STAT LAB [id number] 12:11:00 Test Item Value Reference Range Interpretation Comments Troponin-I (test 0.00 ng/ml 0.00-0.08 The 99th Pe rcentile URL is code = TROP) 0.08 ng/mL for the Johnson iStat Troponin I. The Joint Society of Cardiology/Amer ican College of Card iology (ESC/ACC) and t he National Academy of Clin ical Biochemistry [facility] of Laboratory Prac tices (NACB) recommen ds [...] after the clini felipa event. PT AND [id number] 12:09:00 Test Item Value Reference Range Interpretation Comments Protime (test code 9.5 seconds 9.5-12.1 = PT) INR (test code = 0.9 0.9-1.1 INR results are intended INR) ONLY to monitor Oral Anticoagulant t herapy in stablized patie nts. The INR Therapeutic Range is 2.0 - 3.0 Patie nts with a mechanical he art, the INR Range is 2. 5 - 3.5 [id number] 12:09:00 Test Item Value Reference Range Interpretation Comments aPTT (test code = PTT) 22.3 seconds 23.9-30.7 L STAT LAB CBC WITH AUTO [id number] 11:57:00 Test Item Value Reference Range Interpretation [...] 0.3 % 0.0-0.4 XR CHEST AP/PA 1 [id number] 11:33:32 NANCY [facility]/[place])Name: LAUREN BETH : 1985 Sex: FProcedure: XR CHEST AP/PA 1 VIEWOrder Date: 03/24/2021 10:57 AMOrdering Provider: REHAN COTTONClinical Indication: [id number]: DyspneaComparison: September 30, 2018Findings:Cardiac size is normal.Pulmonary vasculature is normal.Mediastinal contour is normal.Aortic contour is normal.No acute infiltrates or effusions.There is no mass or pneumothorax.There is no evidence of active tuberculosis.There isno acute skeletal abnormality.Impression: Negative AP view of the chest.This final report was electronically signed by Dr Farzad Dewitt MD :28 AMDictated By: FARZAD DEWITTDate: 111:28CULTURE, [id number] 08:00:00Specimen: Urine SpecimensCollected: 03/10/2021 11:50 Status: Final [...] code = NEGATIVE NEGATIVE N UKET) Specific Kake 1.015 1.005-1.030 A (test code = USPGR) Blood (test code = NEGATIVE NEGATIVE N UBLD) PH (test code = UPH) 7.0 4.5-8.0 A Protein (test code = NEGATIVE NEGATIVE N UPROT) Urobilinogen (test 0.2 See_Comment N [Automat ed message] code = U UROB) The system [employer] generated this result transmit michael reference range [...] = NSE) STAT LAB CBC WITH AUTO [id number] 12:10:00 Test Item Value Reference Range Interpretation [...] 0.8 % 0.0-0.4 H STAT LAB CHEM [id number] 12:08:00 Test Item Value Reference Range Interpretation [...] = CREA) 0.5 mg/dl 0.6-1.3 L CULTURE, [id number] 08:26:00Specimen: Urine SpecimensCollected: 02/23/2021 08:35 Status: Final Last Updated: 02/24/2021 08:26 CULTURE (Final) (Final) Many Mixed Body Gabriela Isolated No Pathogens IsolatedCT ABDOMEN/PELVIS W/CONTRAST 2021-02-23 11:40:43 [facility]/[place])Name: LAUREN BETH : 1985 Sex: FProcedure: CT ABDOMEN/PELVIS W/CONTRASTOrder date: 02/23/2021 10:08 AMOrdering Provider: REHAN Farrellinical Indication: [id number]: Right lower quadrant painComparison: November 14, 2020Technique: [...] MD 111:35 AMDictated By: WILEY VELÁZQUEZDate: 02/23/2021 11:[id number] 10:44:00 Test Item Value Reference Range Interpretation Comments Lipase (test code = LIPA) 86 U/L 73-393 URINALYSIS WITH [id number] 08:58:00 Test Item Value Reference Range Interpretation Comments Color (test code = Light-Yellow UCOLR) Clarity (test code = Clear UCLAR) Glucose (test code = NEGATIVE NEGATIVE N UGLUC) Bilirubin (test code NEGATIVE NEGATIVE N = UBILI) Ketones (test code = NEGATIVE NEGATIVE N UKET) Specific Kake 1.020 1.005-1.030 A (test code = USPGR) Blood (test code = NEGATIVE NEGATIVE N UBLD) PH (test code = UPH) 6.0 4.5-8.0 A Protein (test code = NEGATIVE NEGATIVE N UPROT) Urobilinogen (test 0.2 See_Comment N [Automat ed message] code = U UROB) The system [facility] generated this result transmit michael reference [...] = SQEP) STAT LAB CBC WITH AUTO [id number] 08:52:00 Test Item Value Reference Range Interpretation [...] IG%) 0.3 % 0.0-0.4 STAT LAB CHEM [id number] 08:52:00 Test Item Value Reference Range Interpretation [...] mg/dl 0.6-1.3 STAT LAB CBC WITH AUTO [id number] 02:37:00 Test Item Value Reference Range Interpretation [...] A value of 55 was entered by [id number] on 01/10/2021 02:3 7 Lymphocytes (test 43 % 13-42 H No previou s value code = LYMPH) was reported. A value of 43 was entered by [id number] on 01/10/2021 02:3 7 Monocytes (test 1 % 4-14 L No previous value code = MONOS) was reported. A value of 1 was entered by [id number] on 01/10/2021 02:3 7 Basophils (test 1 % 0-1 No previous value code = BASO) was reported. A value of 1 was entered by [id number] on 01/10/2021 02:3 7 Normal Morphology Normal WBC RBC Normal RBC \\T\\ N No pre vious value (test code = NRCM) and Platelet WBC was repor michael. A Morphology Morphology,Normal value of N ormal WBC RBC and WBC RBC and Platelet Platelet Morphology Morphology was entered by [id number] on 01/10/2021 02:3 7 AMYLASE, [id number] 02:14:00 Test Item Value Reference Range Interpretation Comments Amylase (test code = AMYL) 46 U/L 25-115 [id number] 02:14:00 Test Item Value Reference Range Interpretation Comments Lipase (test code = LIPA) 115 U/L 73-393 URINALYSIS WITH [id number] 02:07:00 Test Item Value Reference Range Interpretation Comments Color (test code = Light-Yellow UCOLR) Clarity (test code = Cloudy UCLAR) Glucose (test code = NEGATIVE NEGATIVE N UGLUC) Bilirubin (test code NEGATIVE NEGATIVE N = UBILI) Ketones (test code = NEGATIVE NEGATIVE N UKET) Specific Kake 1.025 1.005-1.030 A (test code = USPGR) Blood (test code = NEGATIVE NEGATIVE N UBLD) PH (test code = UPH) 6.0 4.5-8.0 A Protein (test code = NEGATIVE NEGATIVE N UPROT) Urobilinogen (test 0.2 See_Comment N [Automat ed message] code = U UROB) The system [facility] generated this result transmit michael reference [...] (test code = NSE) STAT LAB CHEM [id number] 01:50:00 Test Item Value Reference Range Interpretation [...] 0.6 mg/dl 0.6-1.3 - CT ABD PELVIS [id number] 03:46:00 [facility] 1985 Sex: F FAX: Annemarie Tesfaye [phone] [place]: St: REG Name: LAUREN BETH [facility] : 1985 Age/S: 35/F [address] Unit: [id number] Loc: [place] [address] Phys: Annemarie Tesfaye [employer] CLE[employer]ER Acct: [id number] Dis Date: Status: REG ER PHONE #: [phone] Exam Date: 12/13/20205 FAX #: [phone] Reason: DIFFUSE ABD PAIN WORSE RLQ, HX APPY, ROSE EXAMS: CPT CODE: [id number] CT ABD PELVIS [id number] AFTER HOURS SERVICE ON: 12/13/2020 3:44 AM [...] GALLBLADDER/BILIARY: Cholecystectomy. PANCREAS: No significant findings. SPLEEN: Nosignificant findings. ADRENALS: No significant findings. KIDNEYS: No hydronephrosis. BLADDER: No significant findings. GASTROINTESTINAL: Postsurgical changes noted in the stomach. Small bowel loops andcolon are within normal limits. There is no bowel structure or free air. The appendix is not visualized. OTHER: Uterus is surgically absent. IMPRESSION: No acute findings in the abdomen or pelvis. Postsurgical changes in the stomach, cholecystectomy, appendectomy and hysterectomy. at 0346 Reported and signed by: Neo Huber MD PAGE 1 Signed Report (CONTINUED) FAX: Annemarie Tesfaye [phone] [place]: St: REG------- Name: [facility] 1985 Age/S: 35/F [address] Unit: [id number] Loc: [place] [address] Phys: Annemarie Tesfaye NP Acct: [id number] Dis Date: Status: REG ER PHONE #: [phone] Exam Date: 12/13/20205 FAX #: [phone] Reason: DIFFUSE ABD PAIN WORSE RLQ, HX APPY, ROSE EXAMS: CPT CODE: [id number] CT ABD PELVIS W/CONT 95240 <Continued> CC: Annemarie Tesfaye NP Technologist: PAMELA KRISHNAMURTHY; Jessi SANCHEZ JR Trnscrd Dt/Tm: 12/13/2020 (0346) [email or web address] Orig Print D/T: S: 12/13/2020 (0349 PAGE 2 Signed ReportCOMPREHENSIVE METABOLIC [id number] 03:32:00 Test Item Value Reference Range Interpretation [...] U/L 38-126 N (test code = ALKP) [id number] 03:32:00 Test Item Value Reference Range Interpretation Comments LIPASE (test code = LIP) 82 U/L 23-300 N BEDSIDE [id number] 03:24:00 Test Item Value Reference Range Interpretation Comments BEDSIDE CREATININE (test code = 0.60 mg/dL 0.51-1.19 N CREATBED) CBC W/AUTO [id number] 03:14:00 Test Item Value Reference Range Interpretation [...] 0.0-0.1 N UA RFLX MICR CULT IF [id number] 02:59:00 Test Item Value Reference Range Interpretation [...] OF URINE: VOIDEDSTAT LAB CBC WITH AUTO [id number] 15:12:00 Test Item Value Reference Range Interpretation [...] 82 on 12/12/2020 15:12 STAT LAB CHEM [id number] 14:08:00 Test Item Value Reference Range Interpretation [...] mg/dl 0.6-1.3 L STAT LAB URINALYSIS WITHOUT [id number] 12:08:00 Test Item Value Reference Range Interpretation Comments Color (test code = Light-Yellow UCOLR) Clarity (test code = Cloudy UCLAR) Glucose (test code = NEGATIVE NEGATIVE N UGLUC) Bilirubin (test code NEGATIVE NEGATIVE N = UBILI) Ketones (test code = NEGATIVE NEGATIVE N UKET) Specific [place] 1.015 1.005-1.030 A (test code = USPGR) Blood (test code = NEGATIVE NEGATIVE N UBLD) PH (test code = UPH) 7.0 4.5-8.0 A Protein (test code = NEGATIVE NEGATIVE N UPROT) Urobilinogen (test 0.2 See_Comment N [Automat ed message] code = U UROB) The system [employer] generated this result transmit michael reference range [...] = 0.4 mg/dl 0.0-1.1 IBIL) URINALYSIS WITH [id number] 08:31:00 Test Item Value Reference Range Interpretation Comments Color (test code = Light-Yellow UCOLR) Clarity (test code = Clear UCLAR) Glucose (test code = NEGATIVE NEGATIVE N UGLUC) Bilirubin (test code NEGATIVE NEGATIVE N = UBILI) Ketones (test code = NEGATIVE NEGATIVE N UKET) Specific Kake 1.020 1.005-1.030 A (test code = USPGR) Blood (test code = NEGATIVE NEGATIVE N UBLD) PH (test code = UPH) 6.5 4.5-8.0 A Protein (test code = NEGATIVE NEGATIVE N UPROT) Urobilinogen (test 0.2 See_Comment N [Automat ed message] code = U UROB) The system [facility] generated this result transmit michael reference [...] (test code = SQEP) STAT LAB CHEM [id number] 08:27:00 Test Item Value Reference Range Interpretation [...] 0.6-1.3 L STAT LAB CBC WITH AUTO [id number] 08:26:00 Test Item Value Reference Range Interpretation [...] 0.0-0.4 XR ABDOMEN 2 VIEWS FLAT / [id number] 08:18:50 [facility] ([facility]/[place])Name: LAUREN BETH : 1985 Sex: FProcedure: XR ABDOMEN 2 VIEWS FLAT / UPRIGHTOrder Date: 11/21/2020 7:43 AMOrdering Provider: REHAN COTTONClinical Indication: [id number]: Abdominal painComparison: Nov 14 2020Findings:Bowel gas pattern is non-obstructive. No pneumoperitoneum.There is moderate volume stool burden.Surgical clips in the right upper quadrant of the abdomen.Impression:Nonobstructive bowel gas pattern.This final reportwas electronically signed by Dr Silver Benitez MD :13 AMDictated By: Maggie BENITEZte: 11/21/2020 08:13CT ABDOMEN/PELVIS W/O [id number] 14:11:31 [facility] ([facility]/)Name: LAUREN BETH : 1985 Sex: FProcedure: CT ABDOMEN/PELVIS W/O CONTRASTOrder Date: 11/14/2020 1:22 PMOrdering Provider: BILLY ACOSTA .Clinical Indication: [id number]: Right flank painComparison: Renal ultrasound November 08, [...] By: FARZAD DEWITT.Date: 11/14/2020 14:05STAT LAB , [id number] 13:31:00 Test Item Value Reference Range Interpretation Comments (Urine) (test code = Negative PREGU) ONLY AVAILABLE 8A-12MNSTAT LAB CHEM [id number] 11:09:00 Test Item Value Reference Range Interpretation [...] mg/dl 0.6-1.3 L STAT LAB URINALYSIS WITHOUT [id number] 11:08:00 Test Item Value Reference Range Interpretation Comments Color (test code = Yellow Lt. Yellow A UCOLR) Clarity (test code = Clear UCLAR) Glucose (test code = Negative Negative N UGLUC) Bilirubin (test code Negative Negative N = UBILI) Ketones (test code = Negative Negative N UKET) Specific Kake 1.025 1.005-1.030 A (test code = USPGR) Blood (test code = Trace-intact Negative A UBLD) PH (test code = UPH) 6.0 4.5-8.0 A Protein (test code = Negative Negative N UPROT) Urobilinogen (test 0.2 See_Comment N [Automat ed message] code = U UROB) The system [facility] generated this result transmit michael reference range : 0.2. The refere nce range was not u sed to interpret th is result as normal/abnormal . Nitrite (test code = Negative Negative N UNITR) Leukocyte Esterase Negative Negative N (test code = ULEUK) STAT LAB CBC WITH AUTO [id number] 11:05:00 Test Item Value Reference Range Interpretation [...] code = IG%) 0.4 % 0.0-0.4 CULTURE, [id number] 08:43:00Specimen: Urine SpecimensCollected: 11/08/2020 09:59 Status: Final Last Updated: 11/09/2020 08:43 CULTURE (Final) (Final) Few Mixed Body Gabriela Isolated No Pathogens IsolatedUS RENAL & BLADDER (KIDNEYS) 2020-11-08 12:00:28 [facility] ([facility])Name: LAUREN BETH : 1985 Sex: FProcedure: US [...] AMDictated By: GLORY BENITEZKDate: 11/08/2020 11:54URINALYSIS WITH [id number] 10:58:00 Test Item Value Reference Range Interpretation Comments Color (test code = Yellow UCOLR) Clarity (test code = Clear UCLAR) Glucose (test code = NEGATIVE NEGATIVE N UGLUC) Bilirubin (test code = NEGATIVE NEGATIVE N UBILI) Ketones (test code = NEGATIVE NEGATIVE N UKET) Specific Kake (test 1.030 1.005-1.030 A code = USPGR) Blood (test code = NEGATIVE NEGATIVE N UBLD) PH (test code = UPH) 6.0 4.5-8.0 A Protein (test code = NEGATIVE NEGATIVE N UPROT) Urobilinogen (test code 0.2 See_Comment N [Au tomated message] = U UROB) The system [employer] generated this result transmitted ref erence range: [...] 0-10 A (test code = SQEP) CULTURE, [id number] 08:13:00ER 17Specimen: Urine SpecimensCollected: 11/01/2020 01:10 Status: Final Last Updated: 11/02/2020 08:13 (1) ER 17 CULTURE (Final) (Final) Few Mixed Body Gabriela Isolated No Pathogens IsolatedXR ABD SERIES W/TAMMY [id number] 03:48:37 [facility] ([facility])Name: LAUREN BETH : 1985 Sex: FPROCEDURE INFORMATION:Exam: [...] mg/dl 0.0-1.1 IBIL) ER 17STAT LAB CHEM [id number] 01:57:00 Test Item Value Reference Range Interpretation [...] 0.5 mg/dl 0.6-1.3 L ER 17URINALYSIS WITH [id number] 01:56:00 Test Item Value Reference Range Interpretation Comments Color (test code = Light-Yellow UCOLR) Clarity (test code = Clear UCLAR) Glucose (test code = 50 NEGATIVE A UGLUC) Bilirubin (test code NEGATIVE NEGATIVE N = UBILI) Ketones (test code = NEGATIVE NEGATIVE N UKET) Specific Kake 1.025 1.005-1.030 A (test code = USPGR) Blood (test code = NEGATIVE NEGATIVE N UBLD) PH (test code = UPH) 6.0 4.5-8.0 A Protein (test code = TRACE NEGATIVE A UPROT) Urobilinogen (test 0.2 See_Comment N [Automat ed message] code = U UROB) The system [facility] generated this result transmit michael reference [...] SQEP) ER 17STAT LAB CBC WITH AUTO [id number] 01:55:00 Test Item Value Reference Range Interpretation [...] code = 0.1 mg/dl 0.0-1.1 IBIL) er [id number] 01:26:00 Test Item Value Reference Range Interpretation Comments Lipase (test code = LIPA) 154 U/L 73-393 ER 10STAT LAB CHEM [id number] 01:15:00 Test Item Value Reference Range Interpretation [...] code = CREA) 0.6 mg/dl 0.6-1.3 er [facility] , [id number] 01:14:00 Test Item Value Reference Range Interpretation Comments (Urine) (test code = Negative PREGU) er [facility] CBC WITH AUTO [id number] 01:13:00 Test Item Value Reference Range Interpretation [...] = IG%) 0.9 % 0.0-0.4 H er [id number] 04:21:00 Test Item Value Reference Range Interpretation [...] code = 0.1 mg/dl 0.0-1.1 IBIL) AMYLASE, [id number] 04:21:00 Test Item Value Reference Range Interpretation Comments Amylase (test code = AMYL) 47 U/L 25-115 URINALYSIS WITH [id number] 03:06:00 Test Item Value Reference Range Interpretation Comments Color (test code = Light-Yellow UCOLR) Clarity (test code = Clear UCLAR) Glucose (test code = NEGATIVE NEGATIVE N UGLUC) Bilirubin (test code NEGATIVE NEGATIVE N = UBILI) Ketones (test code = TRACE NEGATIVE A UKET) Specific Kake 1.025 1.005-1.030 A (test code = USPGR) Blood (test code = NEGATIVE NEGATIVE N UBLD) PH (test code = UPH) 5.5 4.5-8.0 A Protein (test code = NEGATIVE NEGATIVE N UPROT) Urobilinogen (test 0.2 See_Comment N [Automat ed message] code = U UROB) The system [facility] generated this result transmit michael reference [...] (test code = NSE) STAT LAB CHEM [id number] 02:51:00 Test Item Value Reference Range Interpretation [...] mg/dl 0.6-1.3 STAT LAB CBC WITH AUTO [id number] 02:50:00 Test Item Value Reference Range Interpretation [...] H XR ABDOMEN 1 VIEW (KUB)2020-09-12 01:51:21 [facility] ([facility])Name: LAUREN BETH : 1985 Sex: FPROCEDURE INFORMATION:Exam: [...] ALLENDate: 09/12/2020 01:50STAT LAB CBC WITH AUTO [id number] 01:29:00 Test Item Value Reference Range Interpretation [...] IG%) 0.4 % 0.0-0.4 STAT LAB CHEM [id number] 01:28:00 Test Item Value Reference Range Interpretation [...] = CREA) 0.6 mg/dl 0.6-1.3 URINALYSIS WITH [id number] 03:04:00 Test Item Value Reference Range Interpretation Comments Color (test code = Yellow UCOLR) Clarity (test code = Clear UCLAR) Glucose (test code = 100 NEGATIVE A UGLUC) Bilirubin (test code = NEGATIVE NEGATIVE N UBILI) Ketones (test code = TRACE NEGATIVE A UKET) Specific Kake (test >=1.030 1.005-1.030 A code = USPGR) Blood (test code = NEGATIVE NEGATIVE N UBLD) PH (test code = UPH) 5.5 4.5-8.0 A Protein (test code = NEGATIVE NEGATIVE N UPROT) Urobilinogen (test code 0.2 See_Comment N [Au tomated message] = U UROB) The system [employer] generated this result transmitted ref erence range: [...] code = 3+ None Seen,Trace A UBACT) [id number] 03:01:00 Test Item Value Reference Range Interpretation [...] ( 4 - SerumAlbumin)] EGFR if >60 Panamanian (test code mL/min/1.73m\\ = EGFRAA) S\\2 EGFR if Non- >60 Estimate d Glomerular Panamanian (test code mL/min/1.73m\\ Filtrat ion Rate (eGFR) [...] and management of c hronic kidney failure. [id number] 03:01:00 Test Item Value Reference Range Interpretation Comments Lipase (test code = LIPA) 145 U/L 73-393 STAT LAB TEST, Serum [id number] 02:48:00 Test Item Value Reference Range Interpretation Comments (Serum) (test code = Negative PREGS) STAT LAB CBC WITH AUTO [id number] 02:28:00 Test Item Value Reference Range Interpretation [...] code = 0.1 mg/dl 0.0-1.1 IBIL) ER [id number] 02:59:00 Test Item Value Reference Range Interpretation Comments Lipase (test code = LIPA) 167 U/L 73-393 ER 16URINALYSIS WITH [id number] 02:48:00 Test Item Value Reference Range Interpretation Comments Color (test code = UCOLR) Yellow Clarity (test code = UCLAR) Clear Glucose (test code = UGLUC) NEGATIVE NEGATIVE N Bilirubin (test code = UBILI) NEGATIVE NEGATIVE N Ketones (test code = UKET) NEGATIVE NEGATIVE N Specific Kake (test code = >=1.030 1.005-1.030 A USPGR) [...] None Seen,Trace A ER 16CT ABDOMEN/PELVIS W/O [id number] 02:34:52ER 16 R/O KIDNEY STONE [facility] ([facility]/)Name: LAUREN BETH : [id number] Sex: FPROCEDURE INFORMATION:Exam: CT Abdomen And Pelvis [...] By: HOLLIS FERRERADate: 08/06/2020 02:34STAT LAB CHEM [id number] 02:29:00 Test Item Value Reference Range Interpretation [...] L ER 16STAT LAB CBC WITH AUTO [id number] 02:29:00 Test Item Value Reference Range Interpretation [...] = IG%) 0.7 % 0.0-0.4 H ER [id number] 09:31:00 Test Item Value Reference Range Interpretation [...] IBIL) XR ABDOMEN 2 VIEWS FLAT / [id number] 09:22:50 [facility] ([facility])Name: LAUREN BETH : [id number] Sex: FProcedure: XR ABDOMEN 2 VIEWS FLAT / UPRIGHTOrder Date: 07/19/2020 8:40 AMOrdering Provider: REHAN COTTON .Clinical Indication: [id number]: Abdominal painComparison: July 05, 2020Findings:Postoperative change consisting [...] By: FARZAD DEWITTDate: 07/19/2020 09:17STAT LAB CHEM [id number] 09:10:00 Test Item Value Reference Range Interpretation [...] 0.6-1.3 L STAT LAB CBC WITH AUTO [id number] 09:09:00 Test Item Value Reference Range Interpretation [...] % 0.0-0.4 H STAT LAB URINALYSIS WITHOUT [id number] 09:08:00 Test Item Value Reference Range Interpretation Comments Color (test code = UCOLR) Yellow Lt. Yellow A Clarity (test code = UCLAR) Clear Glucose (test code = UGLUC) Negative Negative N Bilirubin (test code = UBILI) Negative Negative N Ketones (test code = UKET) Negative Negative N Specific Kake (test code = USPGR) >=1.030 1.005-1.030 A Blood (test code = UBLD) Negative Negative N PH (test code = UPH) 6.0 4.5-8.0 A Protein (test code = UPROT) Negative Negative N Urobilinogen (test code = U UROB) 0.2 >0.2 N Nitrite (test code = UNITR) Negative Negative N Leukocyte Esterase (test code = Negative Negative N ULEUK) CULTURE, [id number] 08:00:00Specimen: Urine SpecimensCollected: 07/05/2020 03:00 Status: Final Last Updated: 07/07/2020 08:00 CULTURE (Final) (Final) No Growth After 48 HoursXR ABDOMEN 1 VIEW (KUB)2020-07-05 04:07:04 [facility] ([facility]/)Name: LAUREN BETH : [id number] Sex: FPROCEDURE INFORMATION:Exam: XR Abdomen, 1 ViewExam [...] By: OSKAR CRANE: 07/05/2020 04:06STAT LAB , [id number] 03:54:00 Test Item Value Reference Range Interpretation Comments (Urine) (test code = Negative PREGU) STAT LAB CHEM [id number] 03:53:00 Test Item Value Reference Range Interpretation [...] 0.6-1.3 L STAT LAB CBC WITH AUTO [id number] 03:51:00 Test Item Value Reference Range Interpretation [...] = IG%) 0.4 % 0.0-0.4 URINALYSIS WITH [id number] 03:33:00 Test Item Value Reference Range Interpretation Comments Color (test code = UCOLR) Yellow Clarity (test code = UCLAR) Clear Glucose (test code = UGLUC) NEGATIVE NEGATIVE N Bilirubin (test code = UBILI) Small NEGATIVE A Ketones (test code = UKET) TRACE NEGATIVE A Specific Kake (test code = USPGR) 1.020 1.005-1.030 A [...] UBACT) Trace None Seen,Trace N CT ABDOMEN/PELVIS [id number] 16:44:35 [facility] ([facility])Name: LAUREN BETH : [id number] Sex: FProcedure: CT ABDOMEN/PELVIS W/CONTRASTOrder date: 06/07/2020 3:47 PMOrdering Provider: REHAN Farrellinical Indication: [id number]: Left flank painComparison: 06/07/20Technique: Multiple axial helical [...] PMDictated By: WILEY VELÁZQUEZDate: 06/07/2020 16:38URINALYSIS WITH [id number] 15:22:00 Test Item Value Reference Range Interpretation Comments Color (test code = UCOLR) Yellow Clarity (test code = UCLAR) Clear Glucose (test code = UGLUC) NEGATIVE NEGATIVE N Bilirubin (test code = UBILI) NEGATIVE NEGATIVE N Ketones (test code = UKET) NEGATIVE NEGATIVE N Specific Kake (test code = USPGR) 1.020 1.005-1.030 A [...] Trace None Seen,Trace N STAT LAB CHEM [id number] 15:10:00 Test Item Value Reference Range Interpretation [...] 0.6-1.3 L STAT LAB CBC WITH AUTO [id number] 15:08:00 Test Item Value Reference Range Interpretation [...] CON (RENAL STONE)2020-06-07 14:56:05 [facility] ([facility]/)Name: LAUREN BETH : [id number] Sex: FProcedure: CT ABD/ PELVIS W/O CON (RENAL STONE)Order date: 06/07/2020 2:18 PMOrdering Provider: REHAN Farrellinical Indication: [id number]: Left flank painComparison: 05/31/20TECHNIQUE: Using a helical [...] By: WILEY VELÁZQUEZDate: 06/07/2020 14:49CT ABDOMEN/PELVIS W/O [id number] 12:27:07NPO 4 hours. Do not withhold meds hyst [facility] ([facility]/)Name: LAUREN BETH : [id number] Sex: FProcedure: CT ABDOMEN/PELVIS W/O CONTRASTOrder Date: 05/31/2020 10:25 AMOrdering Provider: ME ANN MARIE MCBRIDEClinical Indication: [id number]: Pain radiating to right flankComparison: March 20, [...] 116 U/L 73-393 STAT LAB URINALYSIS WITHOUT [id number] 10:59:00 Test Item Value Reference Range Interpretation Comments Color (test code = UCOLR) Light yellow Lt. Yellow A Clarity (test code = UCLAR) Clear Glucose (test code = UGLUC) Negative Negative N Bilirubin (test code = UBILI) Negative Negative N Ketones (test code = UKET) Negative Negative N Specific Kake (test code = 1.025 1.005-1.030 A USPGR) Blood (test code = UBLD) Negative Negative N PH (test code = UPH) 6.0 4.5-8.0 A Protein (test code = UPROT) Negative Negative N Urobilinogen (test code = U 0.2 >0.2 N UROB) Nitrite (test code = UNITR) Negative Negative N Leukocyte Esterase (test code = Negative Negative N ULEUK) STAT LAB CBC WITH AUTO [id number] 10:58:00 Test Item Value Reference Range Interpretation [...] 0.5 % 0.0-0.4 H STAT LAB CHEM [id number] 10:53:00 Test Item Value Reference Range Interpretation [...] L XR ABDOMEN 1 VIEW (KUB)2020-04-25 21:02:16 [facility] ([facility]/)Name: LAUREN BETH : [id number] Sex: FPROCEDURE INFORMATION:Exam: XR Abdomen, 1 ViewExam [...] code = UKET) Negative Negative N Specific Kake (test code = 1.020 1.005-1.030 A USPGR) [...] Seen,Trace A STAT LAB CBC WITH AUTO [id number] 18:55:00 Test Item Value Reference Range Interpretation [...] of Platel et clumping was entered by [id number] on 04/25/2020 18:5 5 STAT LAB CHEM [id number] 18:17:00 Test Item Value Reference Range Interpretation [...] CREA) 0.4 mg/dl 0.6-1.3 L CULTURE, ANAEROBE [id number] 15:20:00FIRST DRAW = 1 aerobic and 1 anerobic CultureSpecimen: BloodCollected: 03/20/2020 18:30 Status: Final Last Updated: 03/26/2020 15:19 (1) FIRST DRAW = 1 aerobic and 1 anerobic Culture CULTURE (Final) (Final) No Growth After 5 DaysCULTURE, [id number] 15:20:00FIRST DRAW = 1 aerobic and 1 anerobic CultureSpecimen: BloodCollected: 03/20/2020 18:30 Status: Final Last Updated: 03/26/2020 15:19 (1) FIRST DRAW = 1 aerobic and 1 anerobic Culture CULTURE (Final) (Final) No Growth After 5 DaysCT ABDOMEN/PELVIS W/[id number] 21:46:442 weeks s/p adhesolysis. Vomiting/pain/fever. Please do CT with PO and IV contrastProcedures: CT ABDOMEN/PELVIS W/CONTRASTExam Date: 03/20/2020 6:04 PMOrdering Physician: REHAN Farrellinical Indication: [id number]: Abdominal painComparison: CT abdomen/pelvis, 02/25/20TECHNIQUE: Spiral multislice [...] (test code = 0.3 mg/dl 0.0-1.1 IBIL) [id number] 19:24:00 Test Item Value Reference Range Interpretation Comments Lipase (test code = LIPA) 69 U/L 73-393 L [id number] 19:24:00 Test Item Value Reference Range Interpretation Comments Magnesium (test code = MG) 2.0 mg/dl 1.6-2.6 STAT LAB CHEM [id number] 18:43:00 Test Item Value Reference Range Interpretation [...] 0.5 mg/dl 0.6-1.3 L STAT LAB LACTIC [id number] 18:42:00 Test Item Value Reference Range Interpretation Comments LACTATE (test code = 2.50 mmol/l 0.90-1.70 HH R&RB sy rene hassan rn LAC) @1842 STAT LAB CBC WITH AUTO [id number] 18:41:00 Test Item Value Reference Range Interpretation [...] PLMNT MIDLINE NO PORT > 5 y/o W/[id number] 13:21:10Procedure: SP PERC PLMNT MIDLINE NO PORT [...] secured to the skin in the usual fashion.Shoe Packer images were recorded and stored in the [...] lection of specimen. XR ABD SERIES W/PA [id number] 17:33:07Procedure: XR ABD SERIES W/PA CXROrder Date: [...] BENITEZKDate: 03/13/2020 17:26STAT LAB CBC WITH AUTO [id number] 17:23:00 Test Item Value Reference Range Interpretation [...] entered by [id number] on 03/13/2020 17:23 [id number] 17:23:00 Test Item Value Reference Range Interpretation [...] = 0.4 mg/dl 0.0-1.1 IBIL) URINALYSIS WITH [id number] 16:54:00 Test Item Value Reference Range Interpretation Comments Color (test code = UCOLR) Yellow Lt. Yellow A Clarity (test code = UCLAR) Clear Glucose (test code = UGLUC) Negative Negative N Bilirubin (test code = UBILI) Negative Negative N Ketones (test code = UKET) Negative Negative N Specific Kake (test code = >=1.030 1.005-1.030 A USPGR) [...] 4+ None Seen,Trace A STAT LAB CHEM [id number] 16:37:00 Test Item Value Reference Range Interpretation [...] PLMNT MIDLINE NO PORT > 5 y/o [id number] 12:23:44Procedure: SP PERC PLMNT MIDLINE NO PORT [...] 03/02/202012:17 PMDictated By: GLORY BENITEZKDate: 03/02/2020 12:17CORONAVIRUS 2019 (IN HOUSE)2020-03-01 18:48:00 Test Item Value Reference [...] recommend recol lection of specimen. PT AND [id number] 11:51:00 Test Item Value Reference Range Interpretation Comments Protime (test code 9.8 seconds 9.5-12.1 = PT) INR (test code = 0.9 0.9-1.1 INR results are intended INR) ONLY to monitor Oral Anticoagulant t herapy in stablized patie nts. The INR Therapeutic Range is 2.0 - 3.0 Patie nts with a mechanical he art, the INR Range is 2. 5 - 3.5 [id number] 11:51:00 Test Item Value Reference Range Interpretation [...] BE NOTED ON THE RE PORT. CULTURE, [id number] 08:08:00Specimen: Urine RandomCollected: 02/25/2020 11:27 Status: Final Last Updated: 02/27/2020 08:08 CULTURE (Final) (Final) No Growth After 48 [id number] 05:38:00 Test Item Value Reference Range Interpretation [...] 0.5-1.3 code = CREA) EGFR if >60 Panamanian (test code mL/min/1.73m\\ = EGFRAA) S\\2 EGFR if Non- >60 Estimate d Glomerular Panamanian (test code mL/min/1.73m\\ Filtrat ion Rate (eGFR) [...] 0.04 mIU/L 0.35-3.74 L CBC WITH AUTO [id number] 05:18:00 Test Item Value Reference Range Interpretation [...] recommend recol lection of specimen. URINALYSIS WITH [id number] 12:56:00 Test Item Value Reference Range Interpretation Comments Color (test code = UCOLR) Yellow Lt. Yellow A Clarity (test code = UCLAR) Slightly Cloudy Glucose (test code = UGLUC) Negative Negative N Bilirubin (test code = UBILI) Negative Negative N Ketones (test code = UKET) Negative Negative N Specific Kake (test code = >=1.030 1.005-1.030 A USPGR) [...] code = UBACT) Trace None Seen,Trace N [id number] 12:52:00 Test Item Value Reference Range Interpretation [...] = 0.3 mg/dl 0.0-1.1 IBIL) CT ABDOMEN/PELVIS W/[id number] 12:42:41NPO 4 hours. Do not withhold meds Procedure: CT ABDOMEN/PELVIS W/CONTRASTOrder date: 02/25/2020 11:26 AMOrdering Provider: LIZBETH RUBIOERClinical Indication: Nausea and vomiting with abdominal pain.Comparison: [...] WILEY VELÁZQUEZDate: 02/25/2020 12:36 STAT LAB CHEM [id number] 12:07:00 Test Item Value Reference Range Interpretation [...] 0.6-1.3 L STAT LAB CBC WITH AUTO [id number] 12:05:00 Test Item Value Reference Range Interpretation [...] % 0.0-0.4 STAT LAB CBC WITH AUTO [id number] 03:15:00 Test Item Value Reference Range Interpretation [...] 0.6 % 0.0-0.4 H STAT LAB CHEM [id number] 02:55:00 Test Item Value Reference Range Interpretation [...] JORGE LUIS WHITEDate: 02/25/2020 02:45STAT LAB , [id number] 01:12:00 Test Item Value Reference Range Interpretation Comments (Urine) (test code = Negative PREGU) STAT LAB URINALYSIS WITHOUT [id number] 01:11:00 Test Item Value Reference Range Interpretation Comments Color (test code = UCOLR) Yellow Lt. Yellow A Clarity (test code = UCLAR) Clear Glucose (test code = UGLUC) Negative Negative N Bilirubin (test code = UBILI) Negative Negative N Ketones (test code = UKET) Negative Negative N Specific Kake (test code = USPGR) >=1.030 1.005-1.030 A [...] By: JORGE LUIS WHITEDate: 02/10/2020 05:31URINALYSIS WITH [id number] 05:10:00 Test Item Value Reference Range Interpretation Comments Color (test code = UCOLR) Yellow Lt. Yellow A Clarity (test code = UCLAR) Clear Glucose (test code = UGLUC) >=1000 Negative A Bilirubin (test code = UBILI) Negative Negative N Ketones (test code = UKET) Negative Negative N Specific Kake (test code = 1.015 1.005-1.030 A USPGR) [...] = UBACT) None Seen None Seen,Trace N [id number] 04:42:00 Test Item Value Reference Range Interpretation [...] 0.2 mg/dl 0.0-1.1 IBIL) STAT LAB CHEM [id number] 04:27:00 Test Item Value Reference Range Interpretation [...] CREA) 0.6 mg/dl 0.6-1.3 STAT LAB , [id number] 04:24:00 Test Item Value Reference Range Interpretation Comments (Urine) (test code = Negative PREGU) STAT LAB CBC WITH AUTO [id number] 04:22:00 Test Item Value Reference Range Interpretation [...] % 0.0-0.[address] L SPINE W/O [id number] 12:46:24Procedure: CT L SPINE W/O CONTRASTOrder date: 01/25/2020 11:46 AMOrdering Provider: DONALD Healyinical Indication: [id number]: Low back painComparison: NoneTechnique: Using a multislice [...] code = 0.3 mg/dl 0.0-1.1 IBIL) ER [id number] 05:49:00 Test Item Value Reference Range Interpretation Comments Lipase (test code = LIPA) 105 U/L 73-393 ER 7STAT LAB CHEM [id number] 05:06:00 Test Item Value Reference Range Interpretation [...] L ER 7STAT LAB CBC WITH AUTO [id number] 05:04:00 Test Item Value Reference Range Interpretation [...] code = IG%) 0.4 % 0.0-0.4 ER [id number] 02:23:00 Test Item Value Reference Range Interpretation [...] ( 4 - SerumAlbumin)] EGFR if >60 Panamanian (test code mL/min/1.73m\\ = EGFRAA) S\\2 EGFR if Non- >60 Estimate d Glomerular Panamanian (test code mL/min/1.73m\\ Filtrat ion Rate (eGFR) [...] of c hronic kidney failure. URINALYSIS WITH [id number] 02:11:00 Test Item Value Reference Range Interpretation Comments Color (test code = UCOLR) Yellow Lt. Yellow A Clarity (test code = UCLAR) Clear Glucose (test code = UGLUC) Negative Negative N Bilirubin (test code = UBILI) Negative Negative N Ketones (test code = UKET) Trace Negative A Specific Kake (test code = USPGR) >=1.030 1.005-1.030 A [...] Seen,Trace A STAT LAB CBC WITH AUTO [id number] 02:03:00 Test Item Value Reference Range Interpretation [...] = IG%) 0.4 % 0.0-0.4 CT ABDOMEN/PELVIS W/[id number] 22:43:00NPO 4 hours. Do not withhold meds [...] 201910:42 PM CDT.Dictated By: JOSUÉ MCGHEEDate: 10/07/2019 22:[id number] 22:05:00 Test Item Value Reference Range Interpretation [...] 0.5-1.3 code = CREA) EGFR if >60 Panamanian (test code mL/min/1.73m\\ = EGFRAA) S\\2 EGFR if Non- >60 Estimate d Glomerular Panamanian (test code mL/min/1.73m\\ Filtrat ion Rate (eGFR) [...] management of c hronic kidney failure. AMYLASE, [id number] 22:05:00 Test Item Value Reference Range Interpretation Comments Amylase (test code = AMYL) 43 U/L 25-115 [id number] 22:05:00 Test Item Value Reference Range Interpretation Comments Lipase (test code = LIPA) 95 U/L 73-393 URINALYSIS WITH [id number] 21:49:00 Test Item Value Reference Range Interpretation Comments Color (test code = UCOLR) Yellow Lt. Yellow A Clarity (test code = UCLAR) Clear Glucose (test code = UGLUC) Negative Negative N Bilirubin (test code = UBILI) Negative Negative N Ketones (test code = UKET) 15 Negative A Specific Kake (test code = USPGR) >=1.030 1.005-1.030 A [...] Seen,Trace A STAT LAB CBC WITH AUTO [id number] 21:45:00 Test Item Value Reference Range Interpretation [...] IG%) 0.4 % 0.0-0.4 STAT LAB , [id number] 21:36:00 Test Item Value Reference Range Interpretation Comments (Urine) (test code = Negative PREGU) CT ABDOMEN/PELVIS W/O [id number] 03:56:36PROCEDURE INFORMATION:Exam: CT Abdomen And Pelvis Without [...] 3:56 AM CDT.Dictated By: AMY ORDOÑEZDate: 09/20/2019 03:[id number] 02:07:00 Test Item Value Reference Range Interpretation [...] ( 4 - SerumAlbumin)] EGFR if >60 Panamanian (test code mL/min/1.73m\\ = EGFRAA) S\\2 EGFR if Non- >60 Estimate d Glomerular Panamanian (test code mL/min/1.73m\\ Filtrat ion Rate (eGFR) [...] failure. XR ABDOMEN 2 VIEWS FLAT / [id number] 02:01:15PROCEDURE INFORMATION:Exam: XR Abdomen, 2 ViewsExam date [...] CDT.Dictated By: AMY ORDOÑEZDate: 09/20/2019 02:01URINALYSIS WITH [id number] 01:56:00 Test Item Value Reference Range Interpretation Comments Color (test code = UCOLR) Yellow Lt. Yellow A Clarity (test code = UCLAR) Clear Glucose (test code = UGLUC) >=1000 Negative A Bilirubin (test code = UBILI) Negative Negative N Ketones (test code = UKET) Trace Negative A Specific Kake (test code = USPGR) >=1.030 1.005-1.030 A [...] Seen,Trace A STAT LAB CBC WITH AUTO [id number] 01:38:00 Test Item Value Reference Range Interpretation [...] IG%) 0.5 % 0.0-0.[address] ABDOMEN/PELVIS W/[id number] 04:23:30PROCEDURE INFORMATION:Exam: CT Abdomen And Pelvis With [...] 20194:23 AM CDT.Dictated By: SETH MEDINADate: 08/17/2019 04:[id number] 03:34:00 Test Item Value Reference Range Interpretation Comments Lipase (test code = LIPA) 67 U/L 73-393 L [id number] 03:34:00 Test Item Value Reference Range Interpretation [...] ( 4 - SerumAlbumin)] EGFR if >60 Panamanian (test code mL/min/1.73m\\ = EGFRAA) S\\2 EGFR if Non- >60 Estimate d Glomerular Panamanian (test code mL/min/1.73m\\ Filtrat ion Rate (eGFR) [...] kidney failure. STAT LAB CBC WITH AUTO [id number] 03:19:00 Test Item Value Reference Range Interpretation [...] IG%) 0.7 % 0.0-0.4 H URINALYSIS WITH [id number] 03:10:00 Test Item Value Reference Range Interpretation Comments Color (test code = UCOLR) YELLOW Clarity (test code = UCLAR) CLEAR Glucose (test code = UGLUC) NEGATIVE NEGATIVE N Bilirubin (test code = UBILI) NEGATIVE NEGATIVE N Ketones (test code = UKET) NEGATIVE NEGATIVE N Specific Kake (test code = 1.025 1.005-1.030 A USPGR) [...] 1+ None Seen,Trace A STAT LAB , [id number] 03:03:00 Test Item Value Reference Range Interpretation Comments (Urine) (test code = Negative PREGU) ONLY AVAILABLE 8A-24BWIC0 [id number] 20:37:00 Test Item Value Reference Range Interpretation [...] code = CREA) 0.6 mg/dl 0.6-1.2 ED2 [id number] 20:28:00 Test Item Value Reference Range Interpretation [...] = MPV) 7.1 fL 8.0-11.0 A CULTURE, [id number] 08:44:14ytl1Aokwuymm: Urine SpecimensCollected: 07/12/2019 15:00 Status: Final Last Updated: 2019 08:44 (1) err7 Culture Result (Final) (Final) Moderate Mixed Body Gabriela Isolated No Pathogens Isolated No Further Workup PerformedFL LIMITED [id number] 17:53:41Procedures: FL LIMITED IVPExam Date: 07/12/2019 3:21 PMOrdering Physician: REHAN Farrellinical Indication: [id number]: Flank painComparison: CT abdomen/pelvis, 05/17/19Findings: Frontal radiographs [...] MD07/12/2019 5:47 PMDictated By: ELMER PHAMDate: 07/12/2019 17:[id number] 15:56:00 Test Item Value Reference Range Interpretation Comments Lipase (test code = LIPA) 97 U/L 73-393 def3BIOALCC FUNCTION PANEL (LIVER)2019-07-12 15:56:00 Test Item Value [...] (test code = 0.2 mg/dl 0.0-1.1 IBIL) ggb1QZHTLIMMNL WITH [id number] 15:51:00 Test Item Value Reference Range Interpretation Comments Color (test code = UCOLR) YELLOW Clarity (test code = UCLAR) CLEAR Glucose (test code = UGLUC) NEGATIVE NEGATIVE N Bilirubin (test code = UBILI) NEGATIVE NEGATIVE N Ketones (test code = UKET) NEGATIVE NEGATIVE N Specific Kake (test code = 1.020 1.005-1.030 A USPGR) [...] code = UBACT) 4+ None Seen,Trace A qlr1OWKI LAB CHEM [id number] 15:09:00 Test Item Value Reference Range Interpretation [...] (test code = CREA) 0.6 mg/dl 0.6-1.3 hfl6IEIL LAB CBC WITH AUTO [id number] 15:08:00 Test Item Value Reference Range Interpretation [...] = IG%) 0.4 % 0.0-0.[address] ABDOMEN/PELVIS W/[id number] 16:33:46NPO 4 hours. Do not withhold medsProcedures: CT ABDOMEN/PELVIS W/CONTRASTExam Date: 05/17/2019 1:31 PMOrdering Physician: MERLE LYNNEClinical Indication: [id number]: Abdominal painComparison: CT abdomen/pelvis, 04/09/19TECHNIQUE: Spiral multislice [...] MD05/17/2019 4:27 PMDictated By: ELMER PHAMDate: 05/17/2019 16:[id number] 16:20:00 Test Item Value Reference Range Interpretation Comments Lipase (test code = LIPA) 70 U/L 73-393 L STAT LAB CHEM [id number] 15:24:00 Test Item Value Reference Range Interpretation [...] 0.5 mg/dl 0.6-1.3 L STAT LAB LACTIC [id number] 15:23:00 Test Item Value Reference Range Interpretation Comments LACTATE (test code = LAC) 1.39 mmol/l 0.90-1.70 STAT LAB CBC WITH AUTO [id number] 15:21:00 Test Item Value Reference Range Interpretation [...] IG%) 0.5 % 0.0-0.4 H URINALYSIS WITH [id number] 15:08:00 Test Item Value Reference Range Interpretation Comments Color (test code = UCOLR) YELLOW Clarity (test code = UCLAR) CLEAR Glucose (test code = UGLUC) NEGATIVE NEGATIVE N Bilirubin (test code = UBILI) NEGATIVE NEGATIVE N Ketones (test code = UKET) NEGATIVE NEGATIVE N Specific Kake (test code = 1.025 1.005-1.030 A USPGR) [...] None Seen,Trace A CT ANGIO HEAD W/WO [id number] 16:28:5720 g Cathlon Above the Antecubital or higher requiredProcedure: CT ANGIO HEAD W/WO CONTRASTOrder Date: 05/12/2019 3:30 PMOrdering Provider: REHAN Farrellinical Indication: [id number]: HeadacheComparison: NoneTechnique: Using a helical scanner, sequential axial imaging of the brain wasobtained before and after the administration of the contrast medium. At anindependent workstation, 3-D reconstructions of the [place] wereobtained.This examwas performed according to [...] By: FARZAD DEWITTDate: 05/12/2019 16:22 CT ABDOMEN/PELVIS W/[id number] 14:36:05NPO 4 hours. Do not withhold meds [...] By: GLORY BENITEZKDate: 04/09/2019 14:29CB WITH AUTO [id number] 09:02:00 Test Item Value Reference Range Interpretation [...] % 0.0-0.4 H IG%) CBC WITH AUTO [id number] 09:14:00 Test Item Value Reference Range Interpretation [...] (test code = 0.4 % 0.0-0.4 IG%) [id number] 09:12:00 Test Item Value Reference Range Interpretation [...] 0.5-1.3 code = CREA) EGFR if >60 Panamanian (test code mL/min/1.73m\\ = EGFRAA) S\\2 EGFR if Non- >60 Estimate d Glomerular Panamanian (test code mL/min/1.73m\\ Filtrat ion Rate (eGFR) [...] PLMNT MIDLINE NO PORT > 5 y/o W/[id number] 16:11:23Procedure: SP PERC PLMNT MIDLINE NO PORT [...] apermanent ultrasound image was stored in the medicalrecord for documentation.Then, under ultrasound guidance, the vein was punctured with a micropunctureneedle and a 0.018 guidewire was advanced into the selected vessel. The vesselswere patent and therewas a permanent image stored for the permanent medicalrecord. The needle was removed and the 20 gauge Powerglide catheter was advancedover the wire into the left axillary vein. The wire was removed. The catheterwas secured to the skin in the usual fashion. The patient tolerated theprocedure well and there were no immediate complications.Impression:1. Successful upper extremity vascular access.This final report was electronically signed by Dr Wiley Velázquez MD 04/07/20194:05 PMDictated By: WILEY VELÁZQUEZDate: 04/07/2019 16:05CT ABDOMEN/PELVIS W/[id number] 22:50:40PROCEDURE INFORMATION:Exam: CT Abdomen and pelvis with [...] 10:50 PM CDT.Dictated By: ELMER PHAMDate: 04/04/2019 22:[id number] 21:22:00 Test Item Value Reference Range Interpretation [...] 0.3 mg/dl 0.0-1.1 IBIL) STAT LAB CHEM [id number] 21:07:00 Test Item Value Reference Range Interpretation [...] 0.6 mg/dl 0.6-1.3 STAT LAB URINALYSIS WITHOUT [id number] 21:05:00 Test Item Value Reference Range Interpretation Comments Color (test code = UCOLR) Yellow Lt. Yellow A Clarity (test code = UCLAR) Slightly Cloudy Glucose (test code = UGLUC) 100 Negative A Bilirubin (test code = UBILI) Negative Negative N Ketones (test code = UKET) Negative Negative N Specific Kake (test code = >=1.030 1.005-1.030 A USPGR) Blood (test code = UBLD) Negative Negative N PH (test code = UPH) 5.5 4.5-8.0 A Protein (test code = UPROT) Negative Negative N Urobilinogen (test code = U 0.2 >0.2 N UROB) Nitrite (test code = UNITR) Negative Negative N Leukocyte Esterase (test code Negative Negative N = ULEUK) STAT LAB CBC WITH AUTO [id number] 21:04:00 Test Item Value Reference Range Interpretation [...] 0.5 % 0.0-0.4 H STAT LAB , [id number] 21:04:00 Test Item Value Reference Range Interpretation Comments (Urine) (test code = Negative PREGU) ONLY AVAILABLE [id number]-90TMKD2 [id number] 16:05:00 Test Item Value Reference Range Interpretation Comments Sodium (test code = CANCELED mmol/l The r eleased value NA) 141 was cancele d by [id number] on 04/04/2019 16:0 5 Potassium (test code CANCELED mmol/l The released value = K) 3.9 was cancele d by [id number] on 04/04/2019 16:0 5 CO2 (test code = CANCELED mmol/l The rele ased value CO2) 23 was canceled by [id number] on 04/04/2019 16:0 5 Chloride (test code CANCELED mmol/l The r eleased value = CL) 108 was cancele d by [id number] on 04/04/2019 16:0 5 Glucose (test code = CANCELED mg/dl The r eleased value GLU) 96 was canceled by [id number] on 04/04/2019 16:0 5 Calcium (test code = CANCELED mg/dl The r eleased value CALC) 8.8 was cancele d by [id number] on 04/04/2019 16:0 5 BUN (test code = CANCELED mg/dl The relea sed value BUN) 11 was canceled by [id number] on 04/04/2019 16:0 5 Creatinine (test CANCELED mg/dl code = CREA) HISTOLOGY [id number] 11:08:00 [address] [place], [place] [address]Jpisq: [phone] WFOW #: [id number] MedicalDirector: Seth Valdez M.D.Surgical Pathology Consultation ReportPatient Name: LAUREN BETH Case #: [id number] Med. Rec. #:[id number] [id number]: [facility]2019 : 1985(Age:33) Received: 03/23/2019 [...] greatest dimension. The cystsarefilled with clearserous fluid. Shoe Packer sections of the ovaryandpossible fallopian tube are submitted in cassettes A1-A8. /03/23/2019 Seth Valdez MD, Board Certified in Anatomic Pathology Microscopic Descriptio nMicroscopic examination of the right ovary reveals fibrovascularadhesionsalong the surface of the ovary as well as along the accompanyingfallopiantube. The ovarian parenchyma contains follicular cysts, benign serouscyst,as well as numerous corpus albicans. No areas of endometriosis areseen. Billing Fee Code(s): A; 37432- US TRANSVAGINAL W/[id number] 16:45:00 Patient Name: ADELIA BETH Unit No: [id number] EXAMS: CPT CODE: [id number] US TRANSVAGINAL W/PELVIS 09777 CLINICAL HISTORY: Right lower quadrant pain. Status [...] is identified in the right ovary. at 0396 Reported and signed by: Mario Guidry MD CC: Hilaria Calderón MD Technologist: Dipesh Miranda RDMS, RVT Probe: [id number] Trnscrbd D/ (1826) VereniceYOS Orig Print D/T: S: 03/10/2019 (8215) [facility] NAME: ADELIA BETH Radiology Department PHYS: NIGEL - Sarabjit Calderónondra [address] : 1985 AGE: 33 SEX: F [place] [address] LOC: ALONDRA PHONE #: [phone] EXAM DATE: 03/10/2019 STATUS: REG ER FAX #: [phone] RAD NO: Page 1 Signed Report Patient Name: ADELIA BEHT Unit No: [id number] EXAMS: CPT CODE: [id number] US TRANSVAGINAL W/PELVIS 97539 <Continued> [facility] NAME: ADELIA BETH Radiology Department PHYS: NIGEL - Sarabjit Calderónondra [address] : 1985 AGE: 33 SEX: F [place], [place] [address] LOC: ALONDRA PHONE #: [phone] EXAM DATE: 03/10/2019 STATUS: REG ER FAX #: [phone] RAD NO: Page2 Signed Report- US TRANSVAGINAL W/[id number] 16:45:00 Patient Name: LAUREN BETH Unit No: [id number] EXAMS: CPT CODE: [id number] US TRANSVAGINAL W/PELVIS 12574 CLINICAL HISTORY: Right lower quadrant pain. Status [...] in the right ovary. Blood flow is i dentified in the wall of the cyst. There [...] MD Technologist: Dipesh Miranda RDMS, RVT Probe: [id number] Trnscrbd D/ (4315) t.MICAELAR.YOS Orig Print D/T: S: 03/10/2019 (5244) [facility] NAME: LAUREN BETH Radiology Department PHYS: GUTAL. - Sarabjit Calderónondra [address] : 1985 AGE: 33 SEX: F [place], [place] [address] LOC: ALONDRA PHONE #: [phone] EXAM DATE: 03/10/2019 STATUS: DEP ER FAX #: [phone] RAD NO: [id number] Page 1 Signed Report Patient Name: LAUREN BETH Unit No: [id number] EXAMS: CPT CODE: [id number] US TRANSVAGINAL W/PELVIS 05008 (Continued) [facility] NAME: LAUREN BETH Radiology Department PHYS: GUTAL. - StephaneHilaria [address] : 1985 AGE: 33 SEX: F [place], [place] [address]NKXC NO: [id number] LOC: DayanaraERS PHONE #: [phone] EXAM DATE: 03/10/2019 STATUS: DEP ER FAX #: [phone] RAD NO: [id number] Page 2 Signed Report- US PELVIS [id number] 16:45:00 Patient Name: ADELIA BETH Unit No: [id number] EXAMS: CPT CODE: [id number] US PELVIS COMPLETE 18175 CLINICAL HISTORY: Right lower quadrant pain. Status [...] Dipesh Miranda RDMS, RVT Probe: Trnscrbd D/ (7832) t.SDR.YOS Orig Print D/T: S: 03/10/2019 (5262) [facility] NAME: ADELIA BETH Radiology Department PHYS: SUEEmmaFaustino - Hilaria Calderón [address] : 1985 AGE: 33 SEX: F [place] [address] LOC: ALONDRA PHONE #: [phone] EXAM DATE: 03/2019 STATUS: REG ER FAX #: [phone] RAD NO: Page 1 Signed Report Patient Name: ADELIA BETH Unit No: [id number] EXAMS: CPT CODE: [id number] US PELVIS COMPLETE 23819 <Continued> [facility] NAME: ADELIA BETH Radiology Department PHYS: SUEEmmaHilaria Diaz [address] : 1985 AGE: 33 SEX: F [place] [address] LOC: ALONDRA PHONE #: [phone] EXAM DATE: 03/10/2019 STATUS: REG ER FAX #: [phone] RAD NO: Page 2 Signed Report- US PELVIS [id number] 16:45:00 Patient Name: LAUREN BETH Unit No: [id number] EXAMS: CPT CODE: [id number] US PELVIS COMPLETE 70948 CLINICAL HISTORY: Right lower quadrant pain. Status [...] flow is identified in theright ovary. at 1646 Reported and signedby: Mario Guidry MD CC: Hilaria Calderón MD Technologist: Dipesh Miranda RDMS, RVT Probe: Trnscrbd D/ (0035) VereniceYOS Orig Print D/T: S: 03/10/2019 (1949) [facility] Department PHYS: BEBEAL. - Hilaria Calderón [address] : 1985 AGE: 33 SEX: F [place], [place] [address] LOC: ALONDRA PHONE #: [phone] EXAM DATE: 03/10/2019 STATUS: [facility] ER FAX #: [phone] RAD NO: [id number] Page 1 Signed Report Patient Name: LAUREN BETH Unit No: [id number] EXAMS: CPT CODE: [id number] US PELVIS COMPLETE 17884 (Continued) [facility] NAME: LAUREN BETH Radiology Department PHYS: SUE. - Hilaria Calderón [address] : 1985 AGE: 33 SEX: F [place] [address] LOC: ALONDRA PHONE #: [phone] EXAM DATE: 03/10/2019 STATUS: [facility] ER FAX #: [phone] RAD NO: [id number] Page 2 Signed ReportCBC W/AUTO DIFF 2019-03-10 [...] = PLTMR) UA RFLX MICR CULT IF [id number] 16:07:00 Test Item Value Reference Range Interpretation [...] A Indication for culture: Suprapubic PainUR HCG [id number] 16:07:00 Test Item Value Reference Range Interpretation [...] culture: Suprapubic PainUA RFLX MICR CULT IF [id number] 16:04:00 Test Item Value Reference Range Interpretation [...] EPIU) Indication for culture: Suprapubic PainUR HCG [id number] 16:04:00 Test Item Value Reference Range Interpretation [...] culture: Suprapubic PainUA RFLX MICR CULT IF [id number] 15:55:00 Test Item Value Reference Range Interpretation [...] RARE-FEW Indication for culture: Suprapubic PainUR HCG [id number] 15:55:00 Test Item Value Reference Range Interpretation [...] and tested. Indication for culture: Suprapubic PainED2 [id number] 01:18:00 Test Item Value Reference Range Interpretation [...] MPV) 6.9 fL 8.0-11.0 A ED2 URINE [id number] 00:55:00 Test Item Value Reference Range Interpretation Comments Color (test code = UCOLR) Yellow Lt. Yellow A Clarity (test code = UCLAR) Clear Glucose (test code = UGLUC) NEGATIVE NEGATIVE N Bilirubin (test code = UBILI) NEGATIVE NEGATIVE N Ketones (test code = UKET) NEGATIVE NEGATIVE N Specific Kake (test code = USPGR) 1.030 1.005-1.030 A Blood (test code = UBLD) NEGATIVE NEGATIVE N PH (test code = UPH) 6.0 4.5-8.0 A Protein (test code = UPROT) Trace NEGATIVE A Urobilinogen (test code = U UROB) 0.2 >0.2 N Nitrite (test code = UNITR) NEGATIVE NEGATIVE N Leukocyte Esterase (test code = NEGATIVE NEGATIVE N ULEUK) ED2 , [id number] 00:54:00 Test Item Value Reference Range Interpretation Comments (Urine) (test code = Negative PREGU) [id number] 13:07:00 Test Item Value Reference Range Interpretation Comments Lipase (test code = LIPA) 106 U/L 73-[address] ABDOMEN/PELVIS W/[id number] 12:24:12Procedures: ED2 CT ABDOMEN/PELVIS W/CONTRASTExam Date: 02/07/2019 10:11 AMOrdering Physician: WYATT Downsinical Indication: [id number]: Epigastric painComparison: CT abdomen/pelvis, 01/27/19TECHNIQUE: Spiral multislice [...] 12:17 PMDictated By: ELMER PHAMDate: 02/07/2019 12:17ED2 [id number] 10:48:00 Test Item Value Reference Range Interpretation [...] = TP) 7.6 gm/dl 6.4-8.1 ED2 URINE [id number] 10:45:00 Test Item Value Reference Range Interpretation Comments Color (test code = UCOLR) Yellow Lt. Yellow A Clarity (test code = UCLAR) Sl Cloudy Glucose (test code = UGLUC) NEGATIVE NEGATIVE N Bilirubin (test code = UBILI) NEGATIVE NEGATIVE N Ketones (test code = UKET) NEGATIVE NEGATIVE N Specific Kake (test code = 1.025 1.005-1.030 A USPGR) Blood (test code = UBLD) NEGATIVE NEGATIVE N PH (test code = UPH) 5.5 4.5-8.0 A Protein (test code = UPROT) NEGATIVE NEGATIVE N Urobilinogen (test code = U UROB) 0.2 >0.2 N Nitrite (test code = UNITR) NEGATIVE NEGATIVE N Leukocyte Esterase (test code = NEGATIVE NEGATIVE N ULEUK) ED2 , [id number] 10:45:00 Test Item Value Reference Range Interpretation Comments (Urine) (test code = Negative PREGU) ED2 [id number] 10:44:00 Test Item Value Reference Range Interpretation [...] MPV) 6.8 fL 8.0-11.[address] ABDOMEN/PELVIS W/[id number] 12:29:19s/p hysterectomy; rlq pain Procedure: CT ABDOMEN/PELVIS W/CONTRASTOrder Date: 01/27/2019 10:57 AMOrdering Provider: DR LEXUS CASTREJON ACOSTAClinical Indication: [id number]: Abdominal painComparison: September 30, 2018TECHNIQUE:The abdomen and [...] code = UKET) NEGATIVE NEGATIVE N Specific Kake (test code = USPGR) <=1.005 1.005-1.030 A [...] code = UBACT) Trace None Seen,Trace N [id number] 11:49:00 Test Item Value Reference Range Interpretation Comments Lipase (test code = LIPA) 91 U/L 73-393 AMYLASE, [id number] 11:49:00 Test Item Value Reference Range Interpretation Comments Amylase (test code = AMYL) 45 U/L 25-115 STAT LAB CHEM [id number] 11:25:00 Test Item Value Reference Range Interpretation [...] 0.6-1.3 L STAT LAB CBC WITH AUTO [id number] 11:23:00 Test Item Value Reference Range Interpretation [...] IG%) 0.6 % 0.0-0.4 H US PELVIS [id number] 07:55:25h/o complex right ovarian cystsProcedure: Pelvic ultrasound.CLINICAL [...] 0.1 mg/dl 0.0-1.1 IBIL) STAT LAB CHEM [id number] 02:41:00 Test Item Value Reference Range Interpretation [...] 0.6-1.3 L STAT LAB CBC WITH AUTO [id number] 02:39:00 Test Item Value Reference Range Interpretation [...] IG%) 0.5 % 0.0-0.4 H URINALYSIS WITH [id number] 02:37:00 Test Item Value Reference Range Interpretation Comments Color (test code = UCOLR) YELLOW Clarity (test code = UCLAR) CLEAR Glucose (test code = UGLUC) 500 NEGATIVE A Bilirubin (test code = UBILI) NEGATIVE NEGATIVE N Ketones (test code = UKET) TRACE NEGATIVE A Specific Kake (test code = USPGR) >=1.030 1.005-1.030 A [...] = UBACT) 2+ None Seen,Trace A CULTURE, [id number] 07:39:00CULTURE RIGHT ABDOMEN WOUND CARE DEPT Specimen: [...] 09/30/2018 8:28 PMOrdering Provider: DIMAS Haskinsinical Indication: [id number]: Acute chest painComparison: May 13, 2017Findings:Cardiac size [...] By: FARZAD DEWITTDate: 10/01/2018 05:08CT ABDOMEN/PELVIS W/O [id number] 00:42:26NPO 4 hours. Do not withhold medsEXAM:CT [...] 0.5 mg/dl 0.0-1.1 IBIL) STAT LAB CHEM [id number] 21:10:00 Test Item Value Reference Range Interpretation [...] 0.6-1.3 L STAT LAB CBC WITH AUTO [id number] 21:09:00 Test Item Value Reference Range Interpretation [...] = IG%) 0.3 % 0.0-0.4 OVARY W/WO TUBE,JJB-[id number] 12:44:00 RUN DATE: 09/04/18 [facility] PAGE 1 RUN TIME: 7364 Specimen Inquiry RUN USER: INTERFACE -[facility]: [id number] [facility] #: [id number] AGE/SX: 33/F ROOM: [facility] RE09/02/18REG DR:Elmer Flores : 87 BED: A DIS: 09/03/18 STATUS: DIS [place] TLOC: SPEC #: [id number] RECD: 09/02/18 STATUS: KWAME RETeri #: [id number] MELISSA: 09/02/18- SUBM DR: Elmer Flores III ENTERED: 09/03/18 SP TYPE: MUSA PELAYO DR: ORDERED: LEVEL IV CODES: [id number] - OVARY, NOS PROCEDURES: LEVEL IV (Incomplete) TISSUES: OVARY, NOS - RIGHT OVARIAN CYST CLINICAL HISTORY 33 year old, acute pelvic pain (wpd) FINAL DIAGNOSIS Right ovarian cyst, excision: - benign simple cyst of ovary Tissue code 1 CPT code(s): 53226 [facility] 09/04/18 GROSS DESCRIPTION ANATOMIC SOURCE [...] with multiple yellow-orange, centrally hemorrhagic corpora lutea. Shoe Packer sections are submitted as A and B. telma/wpd 09/03/18 @ 1343 Signed Amaris Wharton MD 09/04/18 1244 END OF REPORT CBC W/AUTO [id number] 03:10:00 Test Item Value Reference Range Interpretation [...] NORMAL NORMAL code = PLTMR) CHEMISTRY 7 [id number] 14:15:00 Test Item Value Reference Range Interpretation [...] CA) 9.2 mg/dL 8.4-10.2 N CBC W/AUTO [id number] 13:42:00 Test Item Value Reference Range Interpretation [...] NORMAL NORMAL code = PLTMR) US INTRAVAGINAL [id number] 12:35:09Procedure: Pelvic ultrasound.CLINICAL INDICATION: Pelvic pain. Status [...] VELÁZQUEZDate: 09/01/2018 12:28STAT LAB CBC WITH AUTO [id number] 11:31:00 Test Item Value Reference Range Interpretation [...] 09/01/2018 11:31 ONLY AVAILABLE 8A-12MNCT ABDOMEN/PELVIS W/O [id number] 11:11:01MLP C Procedure: CT ABDOMEN/PELVIS W/O CONTRASTOrder Date: 09/01/2018 9:28 AMOrdering Provider: CHIN LORENZANAClinical Indication: [id number]: Abdominal pain. Left lower quadrant painComparison: 12/24/2017TECHNIQUE:CT [...] AMDictatedBy: GLORY BENITEZKDate: 09/01/2018 11:04STAT LAB CHEM [id number] 10:26:00 Test Item Value Reference Range Interpretation [...] L ONLY AVAILABLE 8A-12MNSTAT LAB URINALYSIS WITHOUT [id number] 09:59:00 Test Item Value Reference Range Interpretation Comments Color (test code = UCOLR) Yellow Lt. Yellow A Clarity (test code = UCLAR) Clear Glucose (test code = UGLUC) NEGATIVE Negative A Bilirubin (test code = UBILI) NEGATIVE Negative A Ketones (test code = UKET) NEGATIVE Negative A Specific Kake (test code = USPGR) 1.015 1.005-1.030 A Blood (test code = UBLD) NEGATIVE Negative A PH (test code = UPH) 7.0 4.5-8.0 A Protein (test code = UPROT) NEGATIVE Negative A Urobilinogen (test code = U UROB) 0.2 >0.2 N Nitrite (test code = UNITR) NEGATIVE Negative A Leukocyte Esterase (test code = NEGATIVE Negative A ULEUK) ONLY AVAILABLE 8A-12MNUS INTRAVAGINAL [id number] 13:26:23Procedure: Pelvic ultrasound.CLINICAL INDICATION: PELVIC PAIN: Pain-Pelvic. [...] VELÁZQUEZDate: 05/13/2018 13:20STAT LAB CBC WITH AUTO [id number] 12:22:00 Test Item Value Reference Range Interpretation [...] 0.0-0.4 IG%) STAT LAB CBC WITH AUTO [id number] 11:54:00 Test Item Value Reference Range Interpretation [...] 0.5 % 0.0-0.4 H IG%) ONLY AVAILABLE [address] [place] [address] LAB URINALYSIS WITHOUT [id number] 11:25:00 Test Item Value Reference Range Interpretation Comments Color (test code = UCOLR) Yellow Lt. Yellow A Clarity (test code = UCLAR) Clear Glucose (test code = UGLUC) NEGATIVE Negative A Bilirubin (test code = UBILI) NEGATIVE Negative A Ketones (test code = UKET) NEGATIVE Negative A Specific Kake (test code = USPGR) 1.020 1.005-1.030 A Blood (test code = UBLD) NEGATIVE Negative A PH (test code = UPH) 7.0 4.5-8.0 A Protein (test code = UPROT) NEGATIVE Negative A Urobilinogen (test code = U UROB) 0.2 >0.2 N Nitrite (test code = UNITR) NEGATIVE Negative A Leukocyte Esterase (test code = NEGATIVE Negative A ULEUK) ONLY AVAILABLE [address] [place] [address] LAB , [id number] 11:25:00 Test Item Value Reference Range Interpretation Comments (Urine) (test code = Negative PREGU) ONLY AVAILABLE [address] [place] [address] LAB CHEM [id number] 11:23:00 Test Item Value Reference Range Interpretation [...] mg/dl 0.6-1.3 L ONLY AVAILABLE 8A-12MNUS INTRAVAGINAL [id number] 12:50:53Procedure: Pelvic ultrasound.CLINICAL INDICATION: Right adnexal mass. [...] PMDictated By: WILEY VELÁZQUEZDate: 12/24/2017 12:50URINALYSIS WITH [id number] 10:22:00 Test Item Value Reference Range Interpretation Comments Color (test code = UCOLR) Yellow Clarity (test code = UCLAR) Clear Glucose (test code = UGLUC) NEGATIVE NEGATIVE N Bilirubin (test code = UBILI) NEGATIVE NEGATIVE N Ketones (test code = UKET) NEGATIVE NEGATIVE N Specific Kake (test code = USPGR) 1.025 1.005-1.030 A [...] = UBACT) Trace None Seen,Trace N LIPASE, [id number] 10:05:00 Test Item Value Reference Range Interpretation Comments Lipase (test code = LIPA) 40 U/L 8-223 [id number] 10:05:00 Test Item Value Reference Range Interpretation [...] ( 4 - SerumAlbumin)] EGFR if >60 Panamanian (test code mL/min/1.73m\\ = EGFRAA) S\\2 EGFR if Non- >60 Estimate d Glomerular Panamanian (test code mL/min/1.73m\\ Filtrat ion Rate (eGFR) [...] MD 12/24/20179:32 AMDictated By: WILEY VELÁZQUEZDate: 12/24/2017 09:38[facility] WITH AUTO [id number] 09:26:00 Test Item Value Reference Range Interpretation [...] ureters: 3 mm calculus in the right UVJwithout righthydroureter nephrosis.Stomach and bowel: Status post gastric sleeve procedure. No obstru ction.No mucosal thickening.Appendix: No findings to suggest acute appendicitis.PELVIS:Bladder: Unremarkable. No stones.Reproductive: Status post hysterectomy.ABDOMEN and PELVIS:Intraperitoneal space: Unremarkable. No free air. No significant fluidcollection.Bones/joints: No acute fracture. No dislocat ion.Soft tissues: Unremarkable.Vasculature: Unremarkable. No abdominal aortic aneurysm.Lymph [...] code = UKET) NEGATIVE NEGATIVE N Specific Kake (test code = 1.020 1.005-1.030 A USPGR) [...] UBACT) None Seen None Seen,Trace N er [id number] 03:07:00 Test Item Value Reference Range Interpretation [...] ( 4 - SerumAlbumin)] EGFR if >60 Panamanian (test code mL/min/1.73m\\ = EGFRAA) S\\2 EGFR if Non- >60 Estimate d Glomerular Panamanian (test code mL/min/1.73m\\ Filtrat ion Rate (eGFR) [...] of c hronic kidney failure. er 16LIPASE, [id number] 03:07:00 Test Item Value Reference Range Interpretation Comments Lipase (test code = LIPA) 61 U/L 8-223 er 16CBC WITH AUTO [id number] 03:05:00 Test Item Value Reference Range Interpretation [...] 0.0-0.4 IG%) er 16XR CHEST 2 PA [id number] 19:56:04Procedure: XR CHEST 2 PA LATERALExam date: 05/13/2017 3:53 PMOrdering Provider: DR ASA BLOOMClinical Indication: fatigue, Chest painComparison: March 15, 2016Findings:Cardiomediastinal silhouette is within normal limits.The lungs are clear.No pleural effusion or pneumothorax. Osseous structures are nonacute.No evidence of active tuberculosis.Impression:No acute cardiopulmonary process.This final report was electronically signed by Dr Wiley Velázquez MD 05/13/20177:49 PMDictated By: WILEY VELÁZQUEZDate: 05/13/2017 19:[id number] 16:53:00 Test Item Value Reference Range Interpretation [...] ( 4 - SerumAlbumin)] EGFR if >60 Panamanian (test code mL/min/1.73m\\ = EGFRAA) S\\2 EGFR if Non- >60 Estimate d Glomerular Panamanian (test code mL/min/1.73m\\ Filtrat ion Rate (eGFR) [...] NOTED ON THE RE PORT. URINALYSIS WITH [id number] 18:25:00 Test Item Value Reference Range Interpretation Comments Color (test code = UCOLR) YELLOW Clarity (test code = UCLAR) CLEAR Glucose (test code = UGLUC) NEGATIVE NEGATIVE N Bilirubin (test code = UBILI) NEGATIVE NEGATIVE N Ketones (test code = UKET) NEGATIVE NEGATIVE N Specific Kake (test code = 1.025 1.005-1.030 A USPGR) [...] (test code = 0.1 mg/dl 0.0-1.1 IBIL) [id number] 18:21:00 Test Item Value Reference Range Interpretation [...] mg/dl 8.4-10.2 = CALC) EGFR if >60 Panamanian (test code mL/min/1.73m\\ = EGFRAA) S\\2 EGFR if Non- >60 Estimate d Glomerular Panamanian (test code mL/min/1.73m\\ Filtrat ion Rate (eGFR) [...] c hronic kidney failure. CBC WITH AUTO [id number] 18:04:00 Test Item Value Reference Range Interpretation [...]
--- NOTE | 2022-03-24 00:04 | ER ---
Nurse's Notes [facility] Name: Hong Pace Age: 36 yrs Sex: Female : 1985 Arrival Date: 03/23/2022 Time: 23:28 Bed 25 Private MD: Diagnosis: Lower abdominal pain, unspecified-endometriosis Presentation: 03/23 23:30 Chief complaint: Patient states: Reports having 40 abdominal surgeries for ld1 endometriosis. States "I have a pain management clinic and a surgery scheduled for next week." Pt unable to tolerate pain at home at this moment. Coronavirus screen: At this time, the client does not indicate any symptoms associated with coronavirus-19. Ebola Screen: No symptoms or risks identified at this time. Initial Sepsis Screen: Does the patient meet any 2 criteria? No. Patient's initial sepsis screen is negative. Does the patient have a suspected source of infection? No. Patient's initial sepsis screen is negative. Risk Assessment: Do you want to hurt yourself or someone else? Patient reports no desire to harm self or others. Onset of symptoms was March 23, 2022 at 23:32. 23:30 Method Of Arrival: Ambulatory ld1 23:30 Acuity: [place] 3 ld1 Triage Assessment: 23:32 General: Appears in no apparent distress. uncomfortable, Behavior is cooperative, ld1 anxious. Pain: Complains of pain in abdomen Pain does not radiate. Pain currently is 10 out of 10 on a pain scale. EENT: No signs and/or symptoms were reported regarding the EENT system. Neuro: Level of Consciousness is awake, alert, obeys commands, Oriented to person, place, time, situation, Appropriate for age. Cardiovascular: Capillary refill < 3 seconds Patient's skin is warm and dry. Respiratory: Airway is patent Respiratory effort is even, unlabored. GI: Abdomen is round non-distended. : No signs and/or symptoms were reported regarding the genitourinary system. Derm: No signs and/or symptoms reported regarding the dermatologic system. Musculoskeletal: No signs and/or symptoms reported regarding the musculoskeletal system. 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 - Social history:: Smoking status: Patient denies any tobacco usage or history of. Patient/guardian denies using alcohol. Screenin:34 Abuse screen: Denies threats or abuse. Nutritional screening: No deficits noted. ke1 Tuberculosis screening: No symptoms or risk factors identified. Fall Risk None identified. Assessment: 03/24 00:05 Pain: Complains of pain in abdomen Pain currently is 10 out of 10 on a pain scale. ke1 Vital Signs: 03/23 23:30 BP 129 / 73; Pulse 100; Resp 22; Temp 97.6(TE); Pulse Ox 98% on R/A; Weight 108.86 kg; ld1 Height 5 ft. 4 in. (162.56 cm); Pain 10/10; 03/24 00:30 Pain 2/10; ke1 03/23 23:30 Body Mass Index 41.20 (108.86 kg, 162.56 cm) ld1 ED Course: 03/23 23:28 Patient arrived in ED. ag3 23:29 [facility]ous[facility]C [facility] kb 23:29 Rosalino Tucker DO is Attending Physician. kb 23:32 Triage completed. ld1 23:32 Arm band placed on right wrist. EKG completed in triage. Results shown to MD. EKG ld1 completed in triage. Results shown to MD. 23:34 Joni Ritchie, RN is Primary Nurse. ke1 03/24 00:12 Bed in low position. ke1 Administered Medications: 00:11 Drug: Demerol (meperidine) 75 mg Route: IM; Site: right ventrogluteal; ke1 00:30 Follow up: Pain 2/10 Adult; Response: Pain is decreased ke1 00:11 Drug: Phenergan (promethazine) 25 mg Route: IM; Site: right ventrogluteal; ke1 00:30 Follow up: Response: Nausea is decreased ke1 Outcome: 00:04 Discharge ordered by MD. kb 00:49 Patient left the ED. ke1 Signatures: Trinity Houser FNP-C FNP-Kendal Lao ag3 Olga Jordan RN RN ld1 Joni Ritchie RN RN ke1 Corrections: (The following items were deleted from the chart) 00:14 00:11 Phenergan (promethazine) 25 mg IM in right vastus lateralis ke1 ke1 00:14 00:11 Demerol (meperidine) 75 mg IM in right vastus lateralis ke1 ke1
--- NOTE | 2022-03-24 00:04 | EDPHYS ---
Physician Documentation [facility] Name: Hong Pace Age: 36 yrs Sex: Female : 1985 Arrival Date: 03/23/2022 Time: 23:28 Bed 25 Private MD: ED Physician Rosalino Tucker HPI: 03/24 00:01 This 36 yrs old Female presents to ER via Ambulatory with complaints of Abdominal Pain. kb 00:01 The patient presents with abdominal pain. Onset: The symptoms/episode began/occurred kb and became worse today. The symptoms do not radiate. Associated signs and symptoms: none. The symptoms are described as constant. Modifying factors: The symptoms are alleviated by nothing, the symptoms are aggravated by pressure. Severity of pain: At its worst the pain was moderate in the emergency department the pain is unchanged. The patient has experienced similar episodes in the past, chronically. The patient has been recently seen at the [facility] Emergency Department. Pt reports chronic lower abd pain due to endometriosis. States she sees pain management for this and next appt is on Saturday, but pain has been increased this week. 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 - Social history:: Smoking status: Patient denies any tobacco usage or history of. Patient/guardian denies using alcohol. ROS: 03/24 00:03 Constitutional: Negative for fever, chills, and weight loss. kb Abdomen/GI: Positive for abdominal pain, Negative for nausea, vomiting, and diarrhea. All other systems are negative. Exam: 00:03 Constitutional: This is a well developed, well nourished patient who is awake, alert, kb and in no acute distress. Head/Face: Normocephalic, atraumatic. ENT: Moist Mucous membranes Cardiovascular: Regular rate and rhythm with a normal S1 and S2. No gallops, murmurs, or rubs. No pulse deficits. Respiratory: Respirations even and unlabored. No increased work of breathing. Talking in full sentences Skin: Warm, dry with normal turgor. Normal color. MS/ Extremity: Pulses equal, no cyanosis. Neurovascular intact. Full, normal range of motion. Neuro: Awake and alert, GCS 15, oriented to person, place, time, and situation. Moves all extremities. Normal gait. Psych: Awake, alert, with orientation to person, place and time. Behavior, mood, and affect are within normal limits. 00:03 Abdomen/GI: Inspection: abdomen appears normal, Bowel sounds: normal, in all quadrants, Palpation: soft, in all quadrants, moderate abdominal tenderness, in the right lower quadrant and left lower quadrant. Vital Signs: 03/23 23:30 BP 129 / 73; Pulse 100; Resp 22; Temp 97.6(TE); Pulse Ox 98% on R/A; Weight 108.86 kg; ld1 Height 5 ft. 4 in. (162.56 cm); Pain 04/09; 03/24 00:30 Pain 08/10; ke1 03/23 23:30 Body Mass Index 41.20 (108.86 kg, 162.56 cm) ld1 MDM: 03/23 23:29 Patient medically screened. kb 23:59 Data reviewed: vital signs, nurses notes. Data interpreted: Pulse oximetry: on room air kb is 98 %. Interpretation: normal. 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 ED course: Pt has had labs done for same pain multiple times this month. last time was 2 days ago, no change since then and labs wnl at that time. Pt has appt with pain management on Saturday and having a surgery on Saturday that is supposed to resolve the pain. Will give pt injection for pain today and pt will keep appt with pain managment. Administered Medications: 03/24 00:11 Drug: Demerol (meperidine) 75 mg Route: IM; Site: right ventrogluteal; ke1 00:30 Follow up: Pain 2/10 Adult; Response: Pain is decreased ke1 00:11 Drug: Phenergan (promethazine) 25 mg Route: IM; Site: right ventrogluteal; ke1 00:30 Follow up: Response: Nausea is decreased ke1 Disposition: 08:25 Co-signature as Attending Physician, Rosalino Tucker DO I was immediately available onsite ms3 in the emergency department for consultation in the care of the patient. Disposition Summary: 03/24/22 00:04 Discharge Ordered Location: Home kb Condition: Stable kb Diagnosis - Lower abdominal pain, unspecified - endometriosis kb Followup: kb - With: Emergency Department - When: As needed - Reason: Worsening of condition Followup: kb - With: Private Physician - When: 2 - 3 days - Reason: Recheck today's complaints, Continuance of care, Re-evaluation by your physician Discharge Instructions: - Discharge Summary Sheet kb - Abdominal Pain, Adult, [id number] kb Forms: - Medication Reconciliation Form kb - Thank You Letter kb - Antibiotic Education kb - Prescription Opioid Use kb Signatures: Trinity Houser FNP-C FNP-Rosalino Devries DO DO ms3 Olga Jordan, RN RN ld1 Joni Ritchie RN RN ke1
[2022-03-24] MEDS ORDERED: MEPERIDINE HCL 50 MG/ML ONE (00:13)
[2022-03-24] MEDS ORDERED: PROMETHAZINE INJ 25 MG/ML AMP ONE (00:13)
[2022-03-24] MEDS ORDERED: MEPERIDINE HCL 25 MG/ML SYR ONE (00:14)
[2022-03-25 17:01] VITALS: BP 129/73; TEMP 97.6; O2SAT 98
== END 2022-03-24 00:49 | disposition home or self-care (01) ==
LOC: ER 23:26
DX: R10.30 Lower abdominal pain, unspecified (principal); N80.9 Endometriosis, unspecified; Z88.5 Allergy status to narcotic agent; Z88.6 Allergy status to analgesic agent
CPT/HCPCS: 96372; 99282; J2175; J2550

== ENCOUNTER 2022-04-11 22:45 | Emergency (ER) | payer SELFPAY ==
--- OUTSIDE RECORDS SUMMARY | 2022-04-11 22:48 | XMS REPORT | Clinical Summary ---
:1985 Author Organization [facility] MD [facility] Address [address] [place] [address] Care Team Providers Name Role Phone Keila Valentine MD Primary Care Provider Navi Arango IT ADMINISTRATIVE ASSISTANT Unavailable Allergies Active Allergy Reactions Severity Noted [...] of malignant melanoma of skin 10/26/2021 Travel after 04/11/2021 Immunizations Name Administration Dates Next Due Influenza [...] OVARIAN CYST SURGERY 08/29/2018 - Right 09/28/2018 CA EXC SKIN MALIG 0.6-1 CM 09/23/2018 Abdomen/Right Proce dure: EXCISION OF TRUNK,ARM,LEG MALIGNANT LESION OF TRUNK, right epi gastric; Surgeon: Nicolasa Valentine MD; Location: [facility] OR; Service: SURG ON C - [...] Office Visit Dermatology Lisbeth Shannon M D [address] [place], [place] [address] (Wo rk) Health Maintenance Due Date Last Done Comments COVID-19 Vaccination (#1) 01/11/1987 Results Not on fileafter 04/11/2021 Advance Directives Code Status Date Activated Date Inactivated Comments Full Code 10/04/2018 8:21 PM 10/08/2018 5:55 PM Full Code 09/23/2018 1:48 PM 09/23/2018 6:55 PM Care Teams 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
--- OUTSIDE RECORDS SUMMARY | 2022-04-11 23:00 | XMS REPORT | Continuity of Care Document ---
:1985 Author Organization [facility] t Address [address] [place] [address] Care Team Providers Name Role Phone Keila [...] Number Effective Date Expiration Date S ramakrishna [id number] 1958 00:00:00 MEDI-SHARE C1 [id number] [facility] MEDI-SHARE C1 [id number] [facility] MEDI-SHARE C1 [id number] [facility] [id number] 1958 00:00:00 MEDI-SHARE C1 [id number] [facility] PHCS GENERIC [id number] 2018 00:00:00 Problems Condition Condition Condition Status [...] Active 2019-[address] [facility] abdominal abdominal 00:00: Harpreet marc pain [...] Problem Active [facility] 00:00: Memoria 00 l (LUF/LI V/SA) [...] site 4-07 ity of infection infection 00:00: [facility] Encounter Encounter Disease Active Overview: Univers for other for other 3 Formattin i ty of preprocedu preprocedu 00:00: g of this [place] ral ral 00 note examinatimorena examinatimorena might be Gian fernandez n from the Cancer original. Center EKG 09/08/2018 NSRNR [id number] Obesity Obesity Disease Active Overview: Univ ers 3- Formattin ity of 00:00: g of this note is MD jim Springer from the n original. Cancer BMI Center Readings from Last 2 Encounter s: 09/08/18 36.82 kg/m2 Hypothyroi Hypothyroi Disease Active U nivers dism dism 3-11 ity of 00:00: [place] 00 MD [facility] Malignant Malignant Disease Active Uni vers melanoma melanoma 3-06 ity of of other of other 00:00: [place] part of part of trunk trunk [facility] Mass [...] rs active active ity of problems problems [facility] [place] [facility] [id number] Endometrio Problem Active Co [facility] Allergies, Adverse Reactions, Alerts Allergy Allergy Status Severity Reaction(s) Onset Inactive Treating Comm ents Source Name Type Date Date Clinician ketorola DA Active U rash [facility] c 2-07 [place] 00:00: d 00 [facility] KETOROLA DRUG Active Low Rash 2020-07 Univers C INGREDI 08-22 ity of 00:00: [place] 00 [facility] Ketorola Propensi Active Rash 2020-07 Univer s c ty to 08-22 ity of adverse 00:00: [place] reaction [address] [place] [address] ketorola DA Active [place] 2018- [facility] 9[facility]10 [facility] [place] ketorola DA Active U rash [facility] c 9-24 [place] 00:00: d 00 [facility] ketorola DA Active U [facility] c 9-24 [place] 00:00: d 00 [facility] Ketorola Drug Active Itching Univers c Allergy -19 ity of 00:00: [place] 00 MD [facility] 0 Drug Active Unknown Common allergy [facility] Family History Family Member Diagnosis Comments Start Date Stop Date Source Natural mother -Breast cancer [facility] MD Disla [facility] Social History Social Habit Start Date Stop Date Quantity Comments Source History of Tobacco [facility] - Use [facility] Exposure to 2022-02-09 2022-02-19 Not sure University SARS-CoV-2 (event) 00:00:00 09:20:00 [facility] [place] [facility] Alcohol intake 2018-10-04 2018-10-04 Current University of 00:00:00 00:00:00 non-drinker of [place] MD Lila muñoz [facility] (finding) Tobacco use and 2018-09-04 2018-09-04 Smokeless Universit y of exposure 00:00:00 00:00:00 tobacco non-user [place] [facility] Cigarettes smoked 2018-09-04 2018-09-04 Univers ity of current (pack per 00:00:00 00:00:00 [place] Zoltan Neely ) - Reported Cancer Ce nter Cigarette 2018-09-04 2018-09-04 University of pack-years 00:00:00 00:00:00 [place] MD Bah [facility] Sex Ass[birth year] At [birth year] [facility] 00:[facility] 00:00:00 Hospital Smoking Status Start Date Stop Date Source Tobacco smoking [facility] consumption unknown Never smoked tobacco [facility] Former Smoker 2020-05-03 00:00:00 2020-05-03 [facility] Ce nter Medications Ordered Filled Start Stop Current Ordering Indication Dosage Frequency Signature Comments Components Source Medication Medication Date Date Medication? Clinician (SIG) Name Name metoclopram No 10mg 10 mg, Uni vers oleg HCl 02-19 Slow IV ity of (REGLAN) 15:30: 15:37 Push, [place] injection 00 :00 ONCE, 1 Medical 10 mg dose, On Branch 02/19/22 at 1030, JOSE NaCl 0.9% No 1000mL at 999 Uni vers (NS) bolus 02-19 mL/hr, ity of infusion 15:30: 15:58 1,000 mL, Jacques as 1,000 mL 00 :00 IV Medical Infusion, Branch ONCE, 1 dose, On [facility] 02/19/22 at 1030, JOSE morpHINE (4 [...] Branch 02/19/22 at 0930, JOSE methylPREDN Yes [id number] Take by [facility] [place] [facility] ISolone 11-29 mouth ity of (MEDROL, 00:00: SEE-INSTRU Jacques as TE,) 4 mg 00 CTIONS. Medica l tablets follow Branch package directions methylPREDN Yes [id number] Take by [facility] [place] [facility] ISolone 11-29 mouth ity of (MEDROL, 00:00: SEE-INSTRU Jacques as TE,) 4 mg 00 CTIONS. Medica l tablets follow Branch package directions amoxicillin 2021- No [id number] 1{tbl} Take 1 Univers -clavulanat 11-29 tablet [...] s: acute pain estrogens, Yes Take by [facility] ers conjugated 3- mouth. ity of (PREMARIN 16:19: [place] ORAL) 44 Medical Branch estrogens, Yes Take by [facility] ers conjugated 08-29 mouth. ity of (PREMARIN 16:19: [place] ORAL) 44 Medical Branch naproxen Yes [id number] 500mg Take 1 U nivers (NAPROSYN) 2-02 tablet by ity of 500 mg 00:00: mouth 2 [place] tablet 00 (two) Medical times Branch daily with meals. naproxen Yes [id number] 500mg Take 1 U nivers (NAPROSYN) 2-02 tablet by ity of 500 mg 00:00: mouth 2 [place] tablet 00 (two) Medical times Branch daily with meals. albuterol 2020-07 Yes [id number] 2{puff} Inhale 2 Univers 90 2-22 Puffs [...] Cough. Indication s: cough albuterol 2020-07 Yes [id number] 2{puff} Inhale 2 Univers 90 2-22 Puffs [...] for pain) V/SA) Premarin Premarin 2018-07 Yes Lizbeth 1 tablet Common 0-23 [facility] 00:00: - [facility] 00 [facility] Premarin Premarin 2018-07 No 1{table QD Premarin 1.25 MG 1.25 MG 0-23 t} 1.25 MG 00:00: 00 estrogens, 2018-07 Yes Take by Univ ers conjugated 0-23 mouth ity of (PREMARIN 00:00: daily. [place] ORAL) 00 [facility] estrogens, 2018-07 Yes Take by Univ ers conjugated 0-23 mouth ity of (PREMARIN 00:00: daily. [place] ORAL) 00 MD Gian payton [facility] estrogens, 2018-07 Yes Take by Univ ers conjugated 0-23 mouth ity of (PREMARIN 00:00: daily. [place] ORAL) 00 MD Gian payton [facility] estrogens, 2018-07 Yes Take by Univ ers conjugated 0-23 mouth ity of (PREMARIN 00:00: daily. [place] ORAL) 00 [facility] estrogens, 2018-07 Yes Take by Univ ers conjugated 0-23 mouth ity of (PREMARIN 00:00: daily. [place] ORAL) 00 MD Gian payton [facility] estrogens, 2018-07 Yes Take by Univ ers conjugated 0-23 mouth ity of (PREMARIN 00:00: daily. [place] ORAL) 00 MD Gian payton [facility] estrogens, 2018-07 Yes Take by Univ ers conjugated 0-23 mouth ity of (PREMARIN 00:00: daily. [place] ORAL) 00 MD Gian payton [facility] estrogens, 2018-07 Yes Take by Univ ers conjugated 0-23 mouth ity of (PREMARIN 00:00: daily. [place] ORAL) 00 MD Gian payton [facility] estrogens, 2018-07 Yes Take by Univ ers conjugated 0-23 mouth ity of (PREMARIN 00:00: daily. [place] ORAL) 00 MD Gian payton [facility] Estradiol Estradiol 2018-07 Yes Kaywin 1 tablet Common 0-01 [facility] 00:00: - [facility] 00 [facility] citalopram 2017- Yes Univers (CeleXA) 40 9-10 ity of mg tablet 00:00: [place] 00 MD Gian payton [facility] citalopram 2017- Yes Univers (CeleXA) 40 9-10 ity of mg tablet 00:00: [place] 00 MD Gian payton [facility] citalopram 2017- Yes Univers (CeleXA) 40 9-10 ity of mg tablet 00:00: [place] 00 MD [facility] citalopram 0 Yes Univers (CeleXA) 40 9-10 ity of mg tablet 00:00: MD Gian payton [facility] citalopram Yes Univers (CeleXA) 40 9-10 ity of mg tablet 00:00: MD Gian payton [facility] citalopra Yes Univers (CeleXA) 40 9-10 ity of mg tablet 00:00: MD Gian payton [facility] citalopram Yes Univers (CeleXA) 40 9-10 ity of mg tablet 00:00: MD Gian payton [facility] citalopra Yes Univers (CeleXA) 40 9-10 ity of mg tablet 00:00: MD Gian payton [facility] citalopram Yes Univers (CeleXA) 40 9-10 ity of mg tablet 00:00: MD Gian payton [facility] levothyroxi 0 Yes Univer s ne 175 mcg 8-10 ity of cap 00:00: [place] MD [facility] levothyroxi 0 Yes Univer s ne 175 mcg 8-10 ity of cap 00:00: MD [facility] levothyroxi 0 Yes Univer s ne 175 mcg 8-10 ity of cap 00:00: MD [facility] levothyroxi 0 Yes Univer s ne 175 mcg 8-10 ity of cap 00:00: MD [facility] levothyroxi 0 Yes Univer s ne 175 mcg 8-10 ity of cap 00:00: [place] MD [facility] levothyroxi 0 Yes Univer s ne 175 mcg 8-10 ity of cap 00:00: MD [facility] levothyroxi 0 Yes Univer s ne 175 mcg 8-10 ity of cap 00:00: [place] MD [facility] levothyroxi 0 Yes Univer s ne 175 mcg 8-10 ity of cap 00:00: [place] MD [facility] levothyroxi 2011-0 Yes Univer s ne 175 mcg 8-10 ity of cap 00:00: [place] 00 MD Gian payton [facility] zolpidem Yes Univers (AMBIEN) 10 07-01 ity of mg tablet 00:00: [place] [facility] zolpidem Yes Univers (AMBIEN) 10 07-01 ity of mg tablet 00:00: 00 [facility] zolpide Yes Univers (AMBIEN) 10 07-01 ity of mg tablet 00:00: [place] 00 [facility] zolpidem Yes Univers (AMBIEN) 10 07-01 ity of mg tablet 00:00: [facility] zolpide Yes Univers (AMBIEN) 10 07-01 ity of mg tablet 00:00: [place] 00 [facility] zolpide Yes Univers (AMBIEN) 10 07-01 ity of mg tablet 00:00: [place] 00 [facility] zolpidem Yes Univers (AMBIEN) 10 07-01 ity of mg tablet 00:00: [place] 00 [facility] tata [facility] zolpidem Yes Univers (AMBIEN) 10 07-01 ity of mg tablet 00:00: [place] 00 [facility] zolpidem Yes Univers (AMBIEN) 10 07-01 ity of mg tablet 00:00: [place] 00 [facility] acetaminoph acetaminoph Yes [address] [facility] [...] Memoria l (LUF/LI V/SA) Celexa Celexa Yes 1 tablet Commo n [facility] Levothyroxi Levothyroxi Yes y 1 tablet Common ne Sodium ne Sodium [facility] on an Sp karla empty - [facility] stomach [facility] Estradiol Estradiol Yes Kaywin 1 patch to Common [facility] skin [facility] Promethazin Promethazin No 1{table Promethazi e HCl 25 mg e HCl 25 mg t_as_ne ne HCl 25 eded} mg Estradiol Estradiol No 1{patch Estradiol 0.1 MG/24HR 0.1 MG/24HR _to_ski 0.1 n} MG/24HR Celexa 40 Celexa 40 No 1{table QD Celexa 40 MG MG t} MG Groom Groom No 1{table QID Groom 7.5-325 MG 7.5-325 MG t_as_ne 7.5-325 MG eded} Levothyroxi Levothyroxi No QD Levothyrox ne Sodium ne Sodium ine Sodium 150 MCG 150 MCG 150 MCG Premarin Premarin No 1{table QD Premarin 1.25 MG 1.25 MG t} 1.25 MG Estradiol Estradiol No 1{patch Estradiol 0.1 MG/24HR 0.1 MG/24HR _to_ski 0.1 n} MG/24HR CeleXA 40 CeleXA 40 No 1{table QD CeleXA 40 MG MG t} MG Promethazin Promethazin No 1{table Promethazi e HCl 25 mg e HCl 25 mg t_as_ne ne HCl 25 eded} mg Levothyroxi Levothyroxi No QD Levothyrox ne Sodium ne Sodium ine Sodium 150 MCG 150 MCG 150 MCG Groom Groom No 1{table QID Groom 7.5-325 MG 7.5-325 MG t_as_ne 7.5-325 MG eded} Promethazin Promethazin No 1{table Promethazi e HCl 25 mg e HCl 25 mg t_as_ne ne HCl 25 eded} mg Estradiol Estradiol No 1{patch Estradiol 0.1 MG/24HR 0.1 MG/24HR _to_ski 0.1 n} MG/24HR Premarin Premarin No 1{table QD Premarin 1.25 MG 1.25 MG t} 1.25 MG Groom Groom No 1{table QID Groom 7.5-325 MG 7.5-325 MG t_as_ne 7.5-325 MG eded} Levothyroxi Levothyroxi No QD Levothyrox ne Sodium ne Sodium ine Sodium 150 MCG 150 MCG 150 MCG CeleXA 40 CeleXA 40 No 1{table QD CeleXA 40 MG MG t} MG Promethazin Promethazin No 1{table Promethazi e HCl 25 mg e HCl 25 mg t_as_ne ne HCl 25 eded} mg Estradiol Estradiol No 1{patch Estradiol 0.1 MG/24HR 0.1 MG/24HR _to_ski 0.1 n} MG/24HR Premarin Premarin No 1{table QD Premarin 1.25 MG 1.25 MG t} 1.25 MG Groom Groom No 1{table QID Groom 7.5-325 MG 7.5-325 MG t_as_ne 7.5-325 MG eded} Levothyroxi Levothyroxi No QD Levothyrox ne Sodium ne Sodium ine Sodium 150 MCG 150 MCG 150 MCG CeleXA 40 CeleXA 40 No 1{table QD CeleXA 40 MG MG t} MG Immunizations Ordered Filled Immunization Date Status Comments [facility] e Immunization Name Name influenza, high influenza, high 2015-04-[address] [facility] dose seasonal, dose seasonal, 00:00:00 Memori al preservative-free preservative-free (LUF/DAVID/SA) Influenza, 2011-03-30 Completed University of Unspecified 00:00:00 [place] MD [facility] 2011-03-30 Completed University of 00:00:00 [place] [facility] Influenza, 2011-03-30 Completed University of Unspecified 00:00:00 [place] MD [facility] 2011-03-30 Completed University of 00:00:00 [place] [facility] Influenza, 2011-03-30 Completed University of Unspecified 00:00:00 [place] MD Hamilton [facility] Td 2011-03-30 Completed University of 00:00:00 [place] [facility] Influenza, 2011-03-30 Completed University of Unspecified 00:00:00 [place] MD [facility] 2011-03-30 Completed University of 00:00:00 [place] [facility] Influenza, 2011-03-30 Completed University of Unspecified 00:00:00 [place] MD [facility] 2011-03-30 Completed University of 00:00:00 [place] [facility] Influenza, 2011-03-30 Completed University of Unspecified 00:00:00 [place] MD [facility] 2011-03-30 Completed University of 00:00:00 [place] [facility] Influenza, 2011-03-30 Completed University of Unspecified 00:00:00 [place] MD [facility] 2011-03-30 Completed University of 00:00:00 [place] MD Olvin banuelos [facility] Influenza, 2011-03-30 Completed University of Unspecified 00:00:00 [place] MD Hamilton ilir [facility] Tdap 2011-03-30 Completed University of 00:00:00 [place] Olvin banuelos [facility] Influenza, 2011-03-30 Completed University of Unspecified 00:00:00 [place] MD Hamilton ilir [facility] Tdap 2011-03-30 Completed University of 00:00:00 [place] MD Lubinharitha banuelos [facility] Influenza (IM) 2009-04-05 Completed University of Preservative Free 00:00:00 [facility] Influenza (IM) 2009-04-05 Completed University of Preservative Free 00:00:00 [facility] Influenza (IM) 2009-04-05 Completed University of Preservative Free 00:00:00 [facility] Influenza (IM) 2009-04-05 Completed University of Preservative Free 00:00:00 [facility] Influenza (IM) 2009-04-05 Completed University of Preservative Free 00:00:00 [facility] Influenza (IM) 2009-04-05 Completed University of Preservative Free 00:00:00 [facility] Influenza (IM) 2009-04-05 Completed University of Preservative Free 00:00:00 [facility] Influenza (IM) 2009-04-05 Completed University of Preservative Free 00:00:00 [facility] Influenza (IM) 2009-04-05 Completed University of Preservative Free 00:00:00 [facility] Vital Signs Vital Name Observation Time Observation Value Comments Source Systolic blood 2022-02-19 14:13:00 156 mm[Hg] Univer sity of pressure [facility] [place] [facility] Diastolic blood 2022-02-19 14:13:00 94 mm[Hg] Unive rsity of pressure [facility] [place] [facility] Heart rate 2022-02-19 14:13:00 111 /min [facility] Body temperature 2022-02-19 14:13:00 37.11 [facility] 2022-02-19 14:13:00 22 /min [facility] Body height 2022-02-19 14:13:00 162.6 cm [facility] [place] [facility] Body weight 2022-02-19 14:13:00 104.327 kg [facility] [place] [facility] BMI 2022-02-19 14:13:00 39.48 kg/m2 [facility] [place] [facility] Oxygen saturation in 2022-02-19 14:13:00 99 /min University of Arterial blood by [facility] Pulse oximetry Branch Systolic blood 2021-11-29 22:40:00 116 mm[Hg] Univer sity of pressure [place] [facility] Diastolic blood 2021-11-29 22:40:00 85 mm[Hg] Unive rsity of pressure [facility] [place] [facility] Heart rate 2021-11-29 22:40:00 87 /min [facility] [place] [facility] Body temperature 2021-11-29 22:40:00 37.28 Ericka [facility] ersity of [place] [facility] [place] Respiratory rate 2021-11-29 22:40:00 16 /min [facility] [place] [facility] Body height 2021-11-29 22:40:00 162.6 cm [facility] [place] [facility] Body weight 2021-11-29 22:40:00 103.874 kg [facility] [place] [facility] BMI 2021-11-29 22:40:00 39.31 kg/m2 [facility] [place] [facility] Oxygen saturation in 2021-11-29 22:40:00 98 /min University of Arterial blood by [facility] Pulse oximetry Branch Height 2021-04-23 00:58:00 [...] Center Heart rate 2021-10-26 15:16:33 92 /min [facility] Respiratory rate 2021-10-26 15:16:33 16 /min [facility] Oxygen saturation in 2021-10-26 15:16:33 98 /min [facility] Arterial blood by Jeffrey muñoz Pulse oximetry [facility] Center Body Temperature 2021-04-23 00:58:00 97.8 [degF] [facility] (LUF/DAVID/SA) Pulse Rate 2021-04-23 00:58:00 116 /min [facility] (LUF/DAVID/SA) Respiratory Rate 2021-04-23 00:58:00 18 /min [facility] (F/DAVID/SA) O2% BldC Oximetry 2021-04-23 00:58:00 99 % [facility] (LUF/DAVID/SA) BP Systolic 2021-04-23 00:58:00 111 mm[Hg] [facility] (LUF/DAVID/SA) BP Diastolic 2021-04-23 00:58:00 77 mm[Hg] [facility] (LUF/DAVID/SA) Height 2021-04-23 00:58:00 64 [in_i] [facility] (LUF/DAVID/SA) Weight 2021-04-23 00:58:00 105.1 kg [facility] (LUF/DAVID/SA) BMI (Body Mass 2021-04-23 00:58:00 40 kg/m2 [facility] Index) [facility] (LUF/DAVID/SA) Body Temperature 2021-03-24 10:53:00 98.6 [degF] [facility] (LUF/DAVID/SA) Pulse Rate 2021-03-24 10:53:00 87 /min [facility] (LUF/DAVID/SA) Respiratory Rate 2021-03-24 10:53:00 18 /min [facility] (LUF/DAVID/SA) O2% BldC Oximetry 2021-03-24 10:53:00 97 % [facility] (LUF/DAVID/SA) BP Systolic 2021-03-24 10:53:00 120 mm[Hg] [facility] (LUF/DAVID/SA) BP Diastolic 2021-03-24 10:53:00 86 mm[Hg] [facility] (LUF/DAVID/SA) Height 2021-03-24 10:53:00 64 [in_i] [facility] (LUF/DAVID/SA) Weight 2021-03-24 10:53:00 105 kg [facility] (LUF/DAVID/SA) BMI (Body Mass 2021-03-24 10:53:00 40 kg/m2 [facility] (LUF/DAVID/SA) Body Temperature 2021-03-10 10:55:00 98.4 [degF] [facility] (LUF/DAVID/SA) Pulse Rate 2021-03-10 10:55:00 85 /min [facility] (LUF/DAVID/SA) Respiratory Rate 2021-03-10 10:55:00 20 /min [facility] (LUF/DAVID/SA) O2% BldC Oximetry 2021-03-10 10:55:00 100 % [facility] (LUF/DAVID/SA) BP Systolic 2021-03-10 10:55:00 140 mm[Hg] [facility] (LUF/DAVID/SA) BP Diastolic 2021-03-10 10:55:00 98 mm[Hg] [facility] (LUF/DAVID/SA) Height 2021-03-10 10:55:00 64 [in_i] [facility] (LUF/DAVID/SA) Weight 2021-03-10 10:55:00 105.2 kg [facility] (LUF/DVAID/SA) BMI (Body Mass 2021-03-10 10:55:00 40 kg/m2 [facility] Index) [facility] (LUF/DAVID/SA) Pulse Rate 2021-02-23 12:32:00 67 /min [facility] (LUF/DAVID/SA) O2% BldC Oximetry 2021-02-23 12:32:00 98 % [facility] (F/DAVID/SA) BP Systolic 2021-02-23 12:32:00 112 mm[Hg] [facility] (LUF/DAVID/SA) BP Diastolic 2021-02-23 12:32:00 70 mm[Hg] [facility] (LUF/DAVID/SA) Heart Rate 2021-02-23 11:16:00 64 /min [facility] (F/DAVID/SA) Respiratory Rate 2021-02-23 11:16:00 14 /min [facility] (F/DAVID/SA) Body Temperature 2021-02-23 08:24:00 98.1 [degF] [facility] (F/DAVID/SA) Height 2021-02-23 08:24:00 64 [in_i] [facility] (F/DAVID/SA) Weight 2021-02-23 08:24:00 110 kg [facility] (F/DAVID/SA) BMI (Body Mass 2021-02-23 08:24:00 41.9 kg/m2 [facility] Index) [facility] (LUF/DAVID/SA) Heart Rate 2021-01-10 01:46:00 93 /min [facility] (LUF/DAVID/SA) Pulse Rate 2021-01-10 01:46:00 95 /min [facility] (LUF/DAVID/SA) Respiratory Rate 2021-01-10 01:46:00 16 /min [facility] (LUF/DAVID/SA) O2% BldC Oximetry 2021-01-10 01:46:00 97 % [facility] (LUF/DAVID/SA) BP Systolic 2021-01-10 01:46:00 103 mm[Hg] [facility] (LUF/DAVID/SA) BP Diastolic 2021-01-10 01:46:00 71 mm[Hg] [facility] (LUF/DAVID/SA) Weight 2021-01-10 00:53:00 102 kg [facility] (LUF/DAVID/SA) Body Temperature 2021-01-10 00:47:00 98.6 [degF] [facility] (LUF/DAVID/SA) Pulse Rate 2020-12-12 14:20:00 87 /min [facility] (LUF/DAVID/SA) O2% BldC Oximetry 2020-12-12 14:20:00 98 % [facility] (LUF/DAVID/SA) BP Systolic 2020-12-12 14:20:00 128 mm[Hg] [facility] (LUF/DAVID/SA) BP Diastolic 2020-12-12 14:20:00 86 mm[Hg] [facility] (LUF/DAVID/SA) Body Temperature 2020-12-12 12:39:00 98.9 [degF] [facility] (LUF/DAVID/SA) Respiratory Rate 2020-12-12 12:39:00 20 /min [facility] (LUF/DAVID/SA) Weight 2020-12-12 12:39:00 102 kg [facility] (LUF/DAVID/SA) Body Temperature 2020-12-08 10:27:00 98.6 [degF] [facility] (LUF/DAVID/SA) Pulse Rate 2020-12-08 10:27:00 79 /min [facility] (LUF/DAVID/SA) Respiratory Rate 2020-12-08 10:27:00 16 /min [facility] (LUF/DAVID/SA) O2% BldC Oximetry 2020-12-08 10:27:00 99 % [facility] (LUF/DAVID/SA) BP Systolic 2020-12-08 10:27:00 111 mm[Hg] [facility] (LUF/DAVID/SA) BP Diastolic 2020-12-08 10:27:00 57 mm[Hg] [facility] (LUF/DAVID/SA) Weight 2020-12-08 10:27:00 103 kg [facility] (LUF/DAVID/SA) Body Temperature 2020-11-25 00:27:00 97.9 [degF] [facility] (LUF/DAVID/SA) Pulse Rate 2020-11-25 00:27:00 82 /min [facility] (LUF/DAVID/SA) Respiratory Rate 2020-11-25 00:27:00 17 /min [facility] (LUF/DAVID/SA) O2% BldC Oximetry 2020-11-25 00:27:00 98 % [facility] (LUF/DAVID/SA) BP Systolic 2020-11-25 00:27:00 109 mm[Hg] [facility] (LUF/DAVID/SA) BP Diastolic 2020-11-25 00:27:00 62 mm[Hg] [facility] (LUF/DAVID/SA) Heart Rate 2020-11-21 09:30:00 75 /min [facility] (LUF/DAVID/SA) Respiratory Rate 2020-11-21 09:30:00 14 /min [facility] (LUF/DAVID/SA) BP Systolic 2020-11-21 09:30:00 120 mm[Hg] [facility] (LUF/DAVID/SA) BP Diastolic 2020-11-21 09:30:00 76 mm[Hg] [facility] (LUF/DAVID/SA) Body Temperature 2020-11-21 07:15:00 98.1 [degF] [facility] (LUF/DAVID/SA) Pulse Rate 2020-11-21 07:15:00 103 /min [facility] (LUF/DAVID/SA) O2% BldC Oximetry 2020-11-21 07:15:00 100 % [facility] (LUF/DAVID/SA) Height 2020-11-21 07:15:00 64 [in_i] [facility] (LUF/DAVID/SA) Weight 2020-11-21 07:15:00 103.1 kg [facility] (LUF/DAVID/SA) BMI (Body Mass 2020-11-21 07:15:00 39.2 kg/m2 [facility] (LUF/DAVID/SA) Heart Rate 2020-11-14 13:30:00 69 /min [facility] (LUF/DAVID/SA) Pulse Rate 2020-11-14 13:30:00 70 /min [facility] (LUF/DAVID/SA) Respiratory Rate 2020-11-14 13:30:00 10 /min [facility] (LUF/DAVID/SA) O2% BldC Oximetry 2020-11-14 13:30:00 96 % [facility] (LUF/DAVID/SA) BP Systolic 2020-11-14 13:30:00 103 mm[Hg] [facility] (LUF/DAVID/SA) BP Diastolic 2020-11-14 13:30:00 77 mm[Hg] [facility] (LUF/DAVID/SA) Body Temperature 2020-11-14 09:47:00 97.4 [degF] [facility] (LUF/DAVID/SA) Weight 2020-11-14 09:47:00 103 kg [facility] (LUF/DAVID/SA) Body Temperature 2020-11-08 08:32:00 98.1 [degF] [facility] (LUF/DAVID/SA) Pulse Rate 2020-11-08 08:32:00 82 /min [facility] (LUF/DAVID/SA) Respiratory Rate 2020-11-08 08:32:00 20 /min [facility] (LUF/DAVID/SA) O2% BldC Oximetry 2020-11-08 08:32:00 100 % [facility] (F/DAVID/SA) BP Systolic 2020-11-08 08:32:00 129 mm[Hg] [facility] (LUF/DAVID/SA) BP Diastolic 2020-11-08 08:32:00 72 mm[Hg] [facility] (LUF/DAVID/SA) Height 2020-11-08 08:32:00 64 [in_i] [facility] (LUF/DAVID/SA) Weight 2020-11-08 08:32:00 103.1 kg [facility] (F/DAVID/SA) BMI (Body Mass 2020-11-08 08:32:00 39.2 kg/m2 [facility]) [facility] (LUF/DAVID/SA) Body Temperature 2020-11-01 00:58:00 98.7 [degF] [facility] (F/DAVID/SA) Pulse Rate 2020-11-01 00:58:00 104 /min [facility] (F/DAVID/SA) Respiratory Rate 2020-11-01 00:58:00 20 /min [facility] (F/DAVID/SA) O2% BldC Oximetry 2020-11-01 00:58:00 99 % [facility] (F/DAVID/SA) BP Systolic 2020-11-01 00:58:00 133 mm[Hg] [facility] (LUF/DAVID/SA) BP Diastolic 2020-11-01 00:58:00 101 mm[Hg] [facility] (F/DAVID/SA) Height 2020-11-01 00:53:00 65 [in_i] [facility] (F/DAVID/SA) Weight 2020-11-01 00:53:00 103 kg [facility] (F/DAVID/SA) BMI (Body Mass 2020-11-01 00:53:00 37.8 kg/m2 [facility]) [facility] (F/DAVID/SA) Body Temperature 2020-10-04 23:51:00 98 [degF] [facility] (LUF/DAVID/SA) Pulse Rate 2020-10-04 23:51:00 96 /min [facility] (LUF/DAVID/SA) Respiratory Rate 2020-10-04 23:51:00 20 /min [facility] (LUF/DAVID/SA) O2% BldC Oximetry 2020-10-04 23:51:00 98 % [facility] (LUF/DAVID/SA) BP Systolic 2020-10-04 23:51:00 125 mm[Hg] [facility] (LUF/DAVID/SA) BP Diastolic 2020-10-04 23:51:00 73 mm[Hg] [facility] (LUF/DAVID/SA) Height 2020-10-04 23:47:00 65 [in_i] [facility] (LUF/DAVID/SA) Weight 2020-10-04 23:47:00 102.6 kg [facility] (LUF/DAVID/SA) BMI (Body Mass 2020-10-04 23:47:00 37.6 kg/m2 [facility] (LUF/DAVID/SA) Body Temperature 2020-09-18 01:44:00 98.3 [degF] [facility] (LUF/DAVID/SA) Pulse Rate 2020-09-18 01:44:00 116 /min [facility] (LUF/DAVID/SA) Respiratory Rate 2020-09-18 01:44:00 20 /min [facility] (LUF/DAVID/SA) O2% BldC Oximetry 2020-09-18 01:44:00 99 % [facility] (LUF/DAVID/SA) BP Systolic 2020-09-18 01:44:00 127 mm[Hg] [facility] (LUF/DAVID/SA) BP Diastolic 2020-09-18 01:44:00 83 mm[Hg] [facility] (LUF/DAVID/SA) Height 2020-09-18 01:40:00 64 [in_i] [facility] (LUF/DAVID/SA) Weight 2020-09-18 01:40:00 102.8 kg [facility] (LUF/DAVID/SA) BMI (Body Mass 2020-09-18 01:40:00 39.1 kg/m2 [facility]) [facility] (LUF/DAVID/SA) Pulse Rate 2020-09-12 02:16:00 88 /min [facility] (LUF/DAVID/SA) O2% BldC Oximetry 2020-09-12 02:16:00 98 % [facility] (LUF/DAVID/SA) BP Systolic 2020-09-12 02:16:00 113 mm[Hg] [facility] (LUF/DAVID/SA) BP Diastolic 2020-09-12 02:16:00 64 mm[Hg] [facility] (LUF/DAVID/SA) Body Temperature 2020-09-12 00:56:00 97.9 [degF] [facility] (F/DAVID/SA) Respiratory Rate 2020-09-12 00:56:00 18 /min [facility] (F/DAVID/SA) Height 2020-09-12 00:50:00 65 [in_i] [facility] (F/DAVID/SA) Weight 2020-09-12 00:50:00 104.5 kg [facility] (LUF/DAVID/SA) BMI (Body Mass 2020-09-12 00:50:00 38.3 kg/m2 [facility]) [facility] (LUF/DAVID/SA) Pulse Rate 2020-08-22 03:16:00 100 /min [facility] (F/DAVID/SA) O2% BldC Oximetry 2020-08-22 03:16:00 95 % [facility] (LUF/DAVID/SA) BP Systolic 2020-08-22 03:16:00 129 mm[Hg] [facility] (LUF/DAVID/SA) BP Diastolic 2020-08-22 03:16:00 88 mm[Hg] [facility] (LUF/DAVID/SA) Body Temperature 2020-08-22 01:35:00 98.4 [degF] [facility] (F/DAVID/SA) Respiratory Rate 2020-08-22 01:35:00 20 /min [facility] (LUF/DAVID/SA) Height 2020-08-22 01:35:00 64 [in_i] [facility] (LUF/DAVID/SA) Weight 2020-08-22 01:35:00 102 kg [facility] (LUF/DAVID/SA) BMI (Body Mass 2020-08-22 01:35:00 38.8 kg/m2 [facility]) [facility] (LUF/DAVID/SA) Pulse Rate 2020-08-06 03:31:00 83 /min [facility] (LUF/DAVID/SA) O2% BldC Oximetry 2020-08-06 03:31:00 96 % [facility] (LUF/DAVID/SA) BP Systolic 2020-08-06 03:31:00 127 mm[Hg] [facility] (LUF/DAVID/SA) BP Diastolic 2020-08-06 03:31:00 82 mm[Hg] [facility] (LUF/DAVID/SA) Body Temperature 2020-08-06 01:45:00 98 [degF] [facility] (LUF/DAVID/SA) Respiratory Rate 2020-08-06 01:45:00 20 /min [facility] (LUF/DAVID/SA) Height 2020-08-06 01:39:00 66 [in_i] [facility] (LUF/DAVID/SA) Weight 2020-08-06 01:39:00 104.2 kg [facility] (LUF/DAVID/SA) BMI (Body Mass 2020-08-06 01:39:00 37.3 kg/m2 [facility]) [facility] (LUF/DAVID/SA) Pulse Rate 2020-07-19 11:16:00 67 /min [facility] (LUF/DAVID/SA) O2% BldC Oximetry 2020-07-19 11:16:00 94 % [facility] (LUF/DAVID/SA) BP Systolic 2020-07-19 11:16:00 101 mm[Hg] [facility] (LUF/DAVID/SA) BP Diastolic 2020-07-19 11:16:00 63 mm[Hg] [facility] (LUF/DAVID/SA) Body Temperature 2020-07-19 07:50:00 98 [degF] [facility] (LUF/DAVID/SA) Respiratory Rate 2020-07-19 07:50:00 18 /min [facility] (LUF/DAVID/SA) Weight 2020-07-19 07:50:00 100 kg [facility] (LUF/DAVID/SA) Heart Rate 2020-07-05 04:46:00 80 /min [facility] (LUF/DAVID/SA) Respiratory Rate 2020-07-05 04:46:00 15 /min [facility] (LUF/DAVID/SA) BP Systolic 2020-07-05 04:46:00 134 mm[Hg] [facility] (LUF/DAVID/SA) BP Diastolic 2020-07-05 04:46:00 60 mm[Hg] [facility] (LUF/DAVID/SA) Body Temperature 2020-07-05 02:57:00 98 [degF] [facility] (LUF/DAVID/SA) Pulse Rate 2020-07-05 02:57:00 82 /min [facility] (F/DAVID/SA) O2% BldC Oximetry 2020-07-05 02:57:00 99 % [facility] (F/DAVID/SA) Height 2020-07-05 02:50:00 65 [in_i] [facility] (LUF/DAVID/SA) Weight 2020-07-05 02:50:00 102.1 kg [facility] (F/DAVID/SA) BMI (Body Mass 2020-07-05 02:50:00 37.5 kg/m2 [facility] (LUF/DAVID/SA) Body Temperature 2020-06-07 13:38:00 98.5 [degF] [facility] (LUF/DAVID/SA) Pulse Rate 2020-06-07 13:38:00 95 /min [facility] (F/DAVID/SA) Respiratory Rate 2020-06-07 13:38:00 20 /min [facility] (LUF/DAVID/SA) O2% BldC Oximetry 2020-06-07 13:38:00 97 % [facility] (LUF/DAVID/SA) BP Systolic 2020-06-07 13:38:00 129 mm[Hg] [facility] (LUF/DAVID/SA) BP Diastolic 2020-06-07 13:38:00 73 mm[Hg] [facility] (LUF/DAVID/SA) Height 2020-06-07 13:38:00 64 [in_i] [facility] (LUF/DAVID/SA) Weight 2020-06-07 13:38:00 99.79 kg [facility] (LUF/DAVID/SA) BMI (Body Mass 2020-06-07 13:38:00 38 kg/m2 [facility]) [facility] (LUF/DAVID/SA) Body Temperature 2020-05-31 09:45:00 99.6 [degF] [facility] (LUF/DAVID/SA) Pulse Rate 2020-05-31 09:45:00 86 /min [facility] (LUF/DAVID/SA) Respiratory Rate 2020-05-31 09:45:00 18 /min [facility] (LUF/DAVID/SA) O2% BldC Oximetry 2020-05-31 09:45:00 98 % [facility] (LUF/DAVID/SA) BP Systolic 2020-05-31 09:45:00 118 mm[Hg] [facility] (LUF/DAVID/SA) BP Diastolic 2020-05-31 09:45:00 78 mm[Hg] [facility] (LUF/DAVID/SA) Height 2020-05-31 09:45:00 64 [in_i] [facility] (LUF/DAVID/SA) Weight 2020-05-31 09:45:00 99.79 kg [facility] (LUF/DAVID/SA) BMI (Body Mass 2020-05-31 09:45:00 38 kg/m2 [facility] Index) [facility] (LUF/DAVID/SA) Heart Rate 2020-04-25 20:01:00 69 /min [facility] (LUF/DAVID/SA) Pulse Rate 2020-04-25 20:01:00 71 /min [facility] (LUF/DAVID/SA) Respiratory Rate 2020-04-25 20:01:00 18 /min [facility] (LUF/DAVID/SA) O2% BldC Oximetry 2020-04-25 20:01:00 100 % [facility] (LUF/DAVID/SA) BP Systolic 2020-04-25 20:01:00 126 mm[Hg] [facility] (LUF/DAVID/SA) BP Diastolic 2020-04-25 20:01:00 86 mm[Hg] [facility] (LUF/DAVID/SA) Body Temperature 2020-04-25 16:50:00 98.4 [degF] [facility] (LUF/DAVID/SA) Height 2020-04-25 16:50:00 64 [in_i] [facility] (LUF/DAVID/SA) Weight 2020-04-25 16:50:00 220 [lb_av] [facility] (LUF/DAVID/SA) BMI (Body Mass 2020-04-25 16:50:00 38 kg/m2 [facility] (LUF/DAVID/SA) Heart Rate 2020-03-20 18:18:00 112 /min [facility] (LUF/DAVID/SA) Pulse Rate 2020-03-20 18:16:00 93 /min [facility] (LUF/DAVID/SA) O2% BldC Oximetry 2020-03-20 18:16:00 92 % [facility] (LUF/DAVID/SA) BP Systolic 2020-03-20 18:16:00 127 mm[Hg] [facility] (LUF/DAVID/SA) BP Diastolic 2020-03-20 18:16:00 85 mm[Hg] [facility] (LUF/DAVID/SA) Body Temperature 2020-03-20 17:17:00 99.2 [degF] [facility] (LUF/DAVID/SA) Respiratory Rate 2020-03-20 17:17:00 19 /min [facility] (LUF/DAVID/SA) Height 2020-03-20 17:17:00 64 [in_i] [facility] (LUF/DAVID/SA) Weight 2020-03-20 17:17:00 106.9 kg [facility] (LUF/DAVID/SA) BMI (Body Mass 2020-03-20 17:17:00 40.7 kg/m2 [facility] (LUF/DAVID/SA) Respiratory Rate 2020-03-17 10:33:00 16 /min [facility] (LUF/DAVID/SA) Body Temperature 2020-03-17 07:54:00 97.9 [degF] [facility] (LUF/DAVID/SA) Pulse Rate 2020-03-17 07:54:00 83 /min [facility] (LUF/DAVID/SA) O2% BldC Oximetry 2020-03-17 07:54:00 96 % [facility] (LUF/DAVID/SA) BP Systolic 2020-03-17 07:54:00 107 mm[Hg] [facility] (LUF/DAVID/SA) BP Diastolic 2020-03-17 07:54:00 75 mm[Hg] [facility] (LUF/DAVID/SA) Weight 2020-03-17 00:09:00 105.6 kg [facility] (LUF/DAVID/SA) Heart Rate 2020-03-13 15:46:00 81 /min [facility] (LUF/DAVID/SA) Height 2020-03-13 15:31:00 64 [in_i] [facility] (LUF/DAVID/SA) Body Temperature 2020-03-02 15:20:00 98.6 [degF] [facility] (LUF/DAVID/SA) Pulse Rate 2020-03-02 15:20:00 86 /min [facility] (LUF/DAVID/SA) Respiratory Rate 2020-03-02 15:20:00 18 /min [facility] (LUF/DAVID/SA) O2% BldC Oximetry 2020-03-02 15:20:00 99 % [facility] (LUF/DAVID/SA) BP Systolic 2020-03-02 15:20:00 131 mm[Hg] [facility] (LUF/DAVID/SA) BP Diastolic 2020-03-02 15:20:00 85 mm[Hg] [facility] (LUF/DAVID/SA) Height 2020-03-01 10:54:00 64 [in_i] [facility] (LUF/DAVID/SA) Weight 2020-03-01 10:54:00 102 kg [facility] (LUF/DAVID/SA) BMI (Body Mass 2020-03-01 10:54:00 38.8 kg/m2 [facility] (LUF/DAVID/SA) Respiratory Rate 2020-02-27 07:47:00 16 /min [facility] (LUF/DAVID/SA) Body Temperature 2020-02-27 07:32:00 98.2 [degF] [facility] (LUF/DAVID/SA) Pulse Rate 2020-02-27 07:32:00 94 /min [facility] (LUF/DAVID/SA) O2% BldC Oximetry 2020-02-27 07:32:00 95 % [facility] (LUF/DAVID/SA) BP Systolic 2020-02-27 07:32:00 111 mm[Hg] [facility] (LUF/DAVID/SA) BP Diastolic 2020-02-27 07:32:00 56 mm[Hg] [facility] (LUF/DAVID/SA) Weight 2020-02-26 02:09:00 99.6 kg [facility] (LUF/DAVID/SA) Height 2020-02-25 10:03:00 64 [in_i] [facility] (LUF/DAVID/SA) Body Temperature 2020-02-25 00:52:00 97.9 [degF] [facility] (LUF/DAVID/SA) Pulse Rate 2020-02-25 00:52:00 118 /min [facility] (LUF/DAVID/SA) Respiratory Rate 2020-02-25 00:52:00 18 /min [facility] (LUF/DAVID/SA) O2% BldC Oximetry 2020-02-25 00:52:00 97 % [facility] (LUF/DAVID/SA) BP Systolic 2020-02-25 00:52:00 133 mm[Hg] [facility] (LUF/DAVID/SA) BP Diastolic 2020-02-25 00:52:00 67 mm[Hg] [facility] (LUF/DAVID/SA) Height 2020-02-25 00:47:00 64 [in_i] [facility] (LUF/DAVID/SA) Weight 2020-02-25 00:47:00 103.4 kg [facility] (LUF/DAVID/SA) BMI (Body Mass 2020-02-25 00:47:00 39.3 kg/m2 [facility]) [facility] (LUF/DAVID/SA) Body Temperature 2020-01-25 11:32:00 98.4 [degF] [facility] (LUF/DAVID/SA) Pulse Rate 2020-01-25 11:32:00 81 /min [facility] (LUF/DAVID/SA) Respiratory Rate 2020-01-25 11:32:00 14 /min [facility] (LUF/DAVID/SA) O2% BldC Oximetry 2020-01-25 11:32:00 98 % [facility] (LUF/DAVID/SA) BP Systolic 2020-01-25 11:32:00 139 mm[Hg] [facility] (LUF/DAVID/SA) BP Diastolic 2020-01-25 11:32:00 89 mm[Hg] [facility] (LUF/DAVID/SA) Height 2020-01-25 11:32:00 64 [in_i] [facility] (LUF/DAVID/SA) Weight 2020-01-25 11:32:00 100.5 kg [facility] (LUF/DAVID/SA) BMI (Body Mass 2020-01-25 11:32:00 38.2 kg/m2 [facility]) [facility] (LUF/DAVID/SA) Heart Rate 2019-11-24 04:16:00 84 /min [facility] (LUF/DAVID/SA) Pulse Rate 2019-11-24 04:16:00 90 /min [facility] (LUF/DAVID/SA) Respiratory Rate 2019-11-24 04:16:00 26 /min [facility] (LUF/DAVID/SA) O2% BldC Oximetry 2019-11-24 04:16:00 98 % [facility] (LUF/DAVID/SA) BP Systolic 2019-11-24 04:16:00 106 mm[Hg] [facility] (LUF/DAVID/SA) BP Diastolic 2019-11-24 04:16:00 69 mm[Hg] [facility] (LUF/DAVID/SA) Body Temperature 2019-11-24 00:54:00 98.4 [degF] [facility] (LUF/DAVID/SA) Height 2019-11-24 00:49:00 65 [in_i] [facility] (LUF/DAVID/SA) Weight 2019-11-24 00:49:00 103 kg [facility] (LUF/DAVID/SA) BMI (Body Mass 2019-11-24 00:49:00 37.8 kg/m2 [facility] (LUF/DAVID/SA) Heart Rate 2019-10-07 22:54:00 83 /min [facility] (LUF/DAVID/SA) Respiratory Rate 2019-10-07 22:54:00 14 /min [facility] (LUF/DAVID/SA) Pulse Rate 2019-10-07 22:31:00 89 /min [facility] (LUF/DAVID/SA) O2% BldC Oximetry 2019-10-07 22:31:00 97 % [facility] (LUF/DAVID/SA) BP Systolic 2019-10-07 21:16:00 127 mm[Hg] [facility] (LUF/DAVID/SA) BP Diastolic 2019-10-07 21:16:00 85 mm[Hg] [facility] (LUF/DAVID/SA) Height 2019-10-07 20:41:00 64 [in_i] [facility] (LUF/DAVID/SA) Weight 2019-10-07 20:41:00 100.2 kg [facility] (LUF/DAVID/SA) BMI (Body Mass 2019-10-07 20:41:00 38.1 kg/m2 [facility]) [facility] (LUF/DAVID/SA) Pulse Rate 2019-09-20 04:16:00 96 /min [facility] (LUF/DAVID/SA) Respiratory Rate 2019-09-20 04:16:00 9 /min [facility] (LUF/DAVID/SA) O2% BldC Oximetry 2019-09-20 04:16:00 96 % [facility] (LUF/DAVID/SA) BP Systolic 2019-09-20 04:16:00 97 mm[Hg] [facility] (LUF/DAVID/SA) BP Diastolic 2019-09-20 04:16:00 76 mm[Hg] [facility] (LUF/DAVID/SA) Body Temperature 2019-09-20 00:44:00 98 [degF] [facility] (LUF/DAVID/SA) Height 2019-09-20 00:39:00 65 [in_i] [facility] (LUF/DAVID/SA) Weight 2019-09-20 00:39:00 101.9 kg [facility] (LUF/DAVID/SA) BMI (Body Mass 2019-09-20 00:39:00 37.4 kg/m2 [facility]) [facility] (LUF/DAVID/SA) Pulse Rate 2019-08-17 04:31:00 81 /min [facility] (LUF/DAVID/SA) Respiratory Rate 2019-08-17 04:31:00 13 /min [facility] (LUF/DAVID/SA) O2% BldC Oximetry 2019-08-17 04:31:00 97 % [facility] (LUF/DAVID/SA) BP Systolic 2019-08-17 04:31:00 136 mm[Hg] [facility] (LUF/DAVID/SA) BP Diastolic 2019-08-17 04:31:00 75 mm[Hg] [facility] (LUF/DAVID/SA) Body Temperature 2019-08-17 02:23:00 97.6 [degF] [facility] (LUF/DAVID/SA) Height 2019-08-17 02:19:00 64 [in_i] [facility] (LUF/DAVID/SA) Weight 2019-08-17 02:19:00 100.6 kg [facility] (LUF/DAVID/SA) BMI (Body Mass 2019-08-17 02:19:00 38.3 kg/m2 [facility]) [facility] (LUF/DAVID/SA) Pulse Rate 2018-12-07 02:33:00 79 /min [facility] (F/DAVID/SA) Respiratory Rate 2018-12-07 02:33:00 15 /min [facility] (F/DAVID/SA) O2% BldC Oximetry 2018-12-07 02:33:00 96 % [facility] (F/DAVID/SA) BP Systolic 2018-12-07 02:33:00 120 mm[Hg] [facility] (F/DAVID/SA) BP Diastolic 2018-12-07 02:33:00 76 mm[Hg] [facility] (F/DAVID/SA) Body Temperature 2018-12-07 01:10:00 98.2 F [facility] (F/DAVID/SA) Height 2018-12-07 01:10:00 64 in [facility] (F/DAVID/SA) Weight Measured 2018-12-07 01:10:00 218.25 lbs [facility] (LUF/DAVID/SA) BMI (Body Mass 2018-12-07 01:10:00 37.7 kg/m2 [facility]) [facility] (LUF/DAVID/SA) Pulse Rate 2018-09-30 19:40:00 70 /min [facility] (F/DAVID/SA) Respiratory Rate 2018-09-30 19:40:00 21 /min [facility] (F/DAVID/SA) O2% BldC Oximetry 2018-09-30 19:40:00 100 % [facility] (F/DAVID/SA) BP Systolic 2018-09-30 19:40:00 124 mm[Hg] [facility] (F/DAVID/SA) BP Diastolic 2018-09-30 19:40:00 88 mm[Hg] [facility] (F/DAVID/SA) Body Temperature 2018-09-30 19:23:00 99.3 F [facility] (LUF/DAVID/SA) Height 2018-09-30 19:23:00 66 in [facility] (F/DAVID/SA) Weight Measured 2018-09-30 19:23:00 212.52 lbs [facility] (LUF/DAVID/SA) BMI (Body Mass 2018-09-30 19:23:00 34.5 kg/m2 [facility] (LUF/DAVID/SA) Body Temperature 2018-09-01 13:59:00 98 F [facility] (F/DAVID/SA) Pulse Rate 2018-09-01 12:15:00 74 /min [facility] (LUF/DAVID/SA) Respiratory Rate 2018-09-01 12:15:00 16 /min [facility] (F/DAVID/SA) O2% BldC Oximetry 2018-09-01 12:15:00 98 % [facility] (LUF/DAVID/SA) BP Systolic 2018-09-01 12:15:00 131 mm[Hg] [facility] (LUF/DAVID/SA) BP Diastolic 2018-09-01 12:15:00 78 mm[Hg] [facility] (LUF/DAVID/SA) Height 2018-09-01 09:16:00 64 in [facility] (LUF/DAVID/SA) Weight Measured 2018-09-01 09:16:00 214.24 lbs [facility] (LUF/DAVID/SA) BMI (Body Mass 2018-09-01 09:16:00 37 kg/m2 [facility] (LUF/DAVID/SA) Body Temperature 2018-05-13 10:58:00 99 F [facility] (LUF/DAVID/SA) Pulse Rate 2018-05-13 10:58:00 97 /min [facility] (F/DAVID/SA) Respiratory Rate 2018-05-13 10:58:00 18 /min [facility] (F/DAVID/SA) O2% BldC Oximetry 2018-05-13 10:58:00 98 % [facility] (F/DAVID/SA) BP Systolic 2018-05-13 10:58:00 131 mm[Hg] [facility] (LUF/DAVID/SA) BP Diastolic 2018-05-13 10:58:00 88 mm[Hg] [facility] (LUF/DAVID/SA) Height 2018-05-13 10:58:00 64 in [facility] (LUF/DAVID/SA) Weight Measured 2018-05-13 10:58:00 207.23 lbs [facility] (LUF/DAVID/SA) BMI (Body Mass 2018-05-13 10:58:00 35.8 [facility] (LUF/DAVID/SA) Body Temperature 2017-12-24 08:04:00 98.7 F [facility] (LUF/DAVID/SA) Respiratory Rate 2017-12-24 08:04:00 18 /min [facility] (LUF/DAVID/SA) O2% BldC Oximetry 2017-12-24 08:04:00 98 % [facility] (LUF/DAVID/SA) BP Systolic 2017-12-24 08:04:00 126 mm[Hg] [facility] (LUF/DAVID/SA) BP Diastolic 2017-12-24 08:04:00 86 mm[Hg] [facility] (LUF/DAVID/SA) Weight Measured 2017-12-24 08:04:00 207.23 lbs [facility] (LUF/DAVID/SA) Body Temperature 2017-06-20 23:28:00 97.4 F [facility] (LUF/DAVID/SA) Respiratory Rate 2017-06-20 23:28:00 20 /min [facility] (LUF/DAVID/SA) O2% BldC Oximetry 2017-06-20 23:28:00 99 % [facility] (LUF/DAVID/SA) BP Systolic 2017-06-20 23:28:00 107 mm[Hg] [facility] (LUF/DAVID/SA) BP Diastolic 2017-06-20 23:28:00 76 mm[Hg] [facility] (LUF/DAVID/SA) Height 2017-06-20 23:28:00 64 in [facility] (LUF/DAVID/SA) Weight Measured 2017-06-20 23:28:00 217.15 lbs [facility] (LUF/DAVID/SA) BMI (Body Mass 2017-06-20 23:28:[address] [facility]) [facility] (LUF/DAVID/SA) Procedures Procedure Date / Time Performing Clinician Source Performed CT ABDOMEN PELVIS WO 2022-02-19 15:49:34 Trice Harris [facility] CONTRAST [facility] LIPASE 2022-02-19 14:26:00 Trice Harris [facility] COMP. METABOLIC PANEL 2022-02-19 14:26:00 Trice Harris [facility] ([id number]) [facility] CBC WITH DIFF 2022-02-19 14:26[facility]19 [facility]26[facility] 2022-02-19 14:11:01 Doctor Unassigned, [facility] DIAGNOSIS AND TREATMENT [facility] POCT MOLECULAR FLU 2021-11-29 22:46:00 Ameena Preston [facility] INS INFUS DEV LT BASILIC 2020-03-15 00:00:[address] [facility] VN PERQ [facility] (LUF/DAVID/SA) ULTRASONOGRAPHY LT UP EXT 2020-03-15 00:00:[address] [facility] VNS GUID [facility] (LUF/DAVID/SA) ROBOTIC LAP LYSIS OF 2020-03-02 12:56:[address] [facility] ADHESIONS [facility] (LUF/DAVID/SA) LAPAROSCOPY ENTEROLYSIS 2020-03-02 00:00:[address] [facility] SEPARATE PROCEDU [facility] (LUF/DAVID/SA) COLONOSCOPY FLX DX W/COLLJ 2020-02-26 00:00:[address] [facility] SPEC WHEN PFR [facility] (LUF/DAVID/SA) ROBOTIC RIGHT OOPHORECTOMY 2019-03-21 17:09:[address] [facility] LUF (Right) [facility] (LUF/DAVID/SA) CYSTO RGP STENT PLACEMENT 2015-04-20 14:01:[address] [facility] LUF [facility] (LUF/DAVID/SA) CYSTO RGP STENT PLACEMENT 2015-04-20 14:01:00 [facility] Hysterectomy [facility] ([facility]/DAVID/SA) Total thyroidectomy [facility] ([facility]/DAVID/SA) section [facility] (F/DAVID/SA) ABDOMINAL ADHESIONS [facility] REMOVED [facility] ([facility]/DAVID/SA) Extracorporeal shockwave [facility] lithotripsy [facility] ([facility]/DAVID/) MULTIPLE CYSTECTOMYS DONE [facility] (F/DAVID/SA) MULTIPLE CYSTECTOMYS DONE [facility] (F/DAVID/SA) ABDOMINAL ADHESIONS [facility] [facility]/DAVID/) Appendectomy [facility] ([facility]/DAVID/) Plan of Care Planned Activity Planned Date [...] Nba, STLMLC STLMLC Common 08:27:02 Josué 0127 [facility] 2021-07-26 Outpatient Nba, STLMLC STLMLC Common 14:20:31 Josué 1203 [facility] 2021-07-26 Outpatient Nba, STLMLC STLMLC Common 14:05:52 Josué 1027 [facility] 2021-07-26 Outpatient Nba, STLMLC STLMLC Common 12:01:28 Josué 1103 [facility] 2021-07-26 Outpatient Nba, STLMLC STLMLC Common 11:56:42 Josué 1019 [facility] 2021-07-26 Outpatient Nba, STLMLC STLMLC Common 11:49:38 Josué 0928 [facility] 2021-07-26 Outpatient Nba, STLMLC STLMLC Common 11:48:02 Josué 0922 [facility] 2021-07-26 Outpatient Nba, STLMLC STLMLC Common 11:47:47 Josué 0921 [facility] 2021-07-26 Outpatient Nba, STLMLC STLMLC Common 11:42:15 Josué 0901 [facility] 2021-07-26 Outpatient Nba, STLMLC STLMLC Common 11:32:09 Josué 0720 [facility] 2022-02-19 2022-02-19 Emergency X STEVEN, [facility] ERT [id number] Univers 09:15:00 11:05:00 TRICE itphoebe [facility] 2022-02-19 2022-02-19 Emergency [facility] [id number] [id number] Univers 09:15:00 11:05:00 Trice GAONA 350.1.13.10 i ty of [place]2.7.2.686 [place] CARTER [id number] [address] 2021-11-29 2021-11-29 Urgent [facility] 1.2.840.114 [id number] Univers 17:40:00 18:00:00 [facility] 350.1.13.10 it y of [facility] 4.2.7.2.686 Jacques as SUE?BLEA [id number] [address] MEDICAL OFFICE BUILDING 2021-11-29 2021-11-29 Outpatient R MOHAN [facility] [id number] Univers 17:40:00 17:40:00 AMEENA ity [facility] 2021-10-26 2021-10-26 Office GEOVANI Blas, 1.2.840.1 [id number] Univers 09:45:00 10:47:06 Visit Praveen 79423.1.1 ity of 3.412.2.7 [place] .3.277936 MD Carter8 [facility] 2021-10-26 2021-10-26 Office Shiva 1.2.840.1 [id number] Univers 09:45:00 10:47:06 Visit Praveen 89469.1.1 ity of 3.412.2.7 [place] .3.372090 MD Carter8 [facility] 2021-10-26 2021-10-26 Travel 1.2.840.1 [id number] [id number] Univers 00:00:00 00:00:00 44676.1.1 350.1.13.41 ity of 3.412.2.7 2.[place].3.698 [place] .3.122372 084.8 .8 [facility] 2021-10-26 2021-10-26 Travel 1.2.840.1 1.2.871.593 [id number] Univers 00:00:00 00:00:00 40096.1.1 350.1.13.41 ity of 3.412.2.7 2.[place].3.698 [place]3.646[place] 084.8 .8 [facility] 2021-10-15 2021-10-15 MALINGERER 1 SHAMAA, [facility] [id number] [facility] [address] 22:25:00 22:45:00 CONSCIOUS EKTA [facility], Memor ia [address] (LUF/LI AVE, V/SA) [place] [address] 2021-10-15 2021-10-15 Inpatient [facility] 79e1 4a53-b [facility] 00:00:00 00:00:00 [place] [id number] Count includes the [facility], [id number] Memor ia [address] [id number] l [place] (LUF/LI AVE, V/SA) [place] [address] 2021-10-15 2021-10-15 Inpatient [facility] 2f6e c8b8-0 [facility] 00:00:00 00:00:00 [place] [id number] Count includes the [facility], [id number] Memor ia [address] [id number] l [place] (LUF/LI AVE, V/SA) [place] [address] 2021-08-07 2021-08-07 Emergency EM Tyree, [facility] AMPARO [id number] [facility] 09:36:00 12:55:00 Olga 19 [facility] 2021-05-30 2021-05-30 (TEL) [facility] STLMLC [id number] Co mmon 00:00:00 00:00:00 [facility] 2021-05-29 2021-05-29 (TEL) STLMLC STLMLC [id number] Co mmon 00:00:00 00:00:00 [facility] 2021-04-26 2021-04-26 (TEL) [facility] [id number] Co mmon 00:00:00 00:00:00 [facility] 2021-04-23 2021-04-23 UNSPECIFIE 1 LONI DYKES EMD [id number] [facility] [address] 00:46:00 02:08:00 D SETH [facility] ABDOMINAL Memori a PAIN l (LUF/LI V/SA) 2021-04-23 2021-04-23 Inpatient [facility] fb11 ce73-[address] 00:00:00 00:00:00 [place] [id number] Count includes the [facility], [id number] Memor ia [address] [id number] l [place] (LUF/LI AVE, V/SA) [place] ROSA [address] 2021-04-23 2021-04-23 Inpatient [facility] 6aab 1878-[address] [facility] [address] 00:00:00 00:00:00 [place] [id number]-[id number] Count includes the [facility], [id number] Memor ia [address] [id number] l [place] (LUF/LI AVE, V/SA) [place] [address] 2021-03-24 2021-03-24 ANXIETY 1 COTTON, [facility] [address] [facility] [address] 10:25:00 12:27:00 [facility] U[place]PEC[place]IE [place], Memor ia D [address] [place] (LUF/LI A[address], V/SA) [place] [address] 2021-03-24 2021-03-24 Inpatient [facility] f871 cc2a-c [facility] 00:[facility] 00:00:00 [place] 9aa-[id number]-9 Count includes the [facility], [id number] Memor ia [address] [id number] l [place] (LUF/LI AVE, V/SA) [place] [address] 2021-03-24 2021-03-24 Inpatient [facility] e945 ff19-c [facility] 00:00:00 00:00:00 [place] k24-7z19-[id number] [facility] [id number]-[id number] Memor ia [address] [id number] l [place] (LUF/LI AVE, V/SA) [place] [address] 2021-03-23 2021-03-23 Orders Adriana, 1.2.840.1 [id number] Univers 00:00:00 00:00:00 Only Viktoriya Charlton 00187.1.1 ity of 3.412.2.7 [place] .3.044591 .8 [facility] 2021-03-10 2021-03-10 UTI SITE E KOSCIUK, [facility] [id number] 10:29:00 13:50:00 NOT [facility] a [address] (LUF/LI AVE, V/SA) [place] [address] 2021-03-10 2021-03-10 Inpatient [facility] 16e7 6598-b [facility] 00:00:00 00:00:00 [place] d6s-[id number] Count includes the [facility], [id number] Memor ia [address] [id number] l [place] (LUF/LI AVE, V/SA) [place] [address] 2021-03-10 2021-03-10 Inpatient [facility] 518c 3339-c [facility] 00:00:00 00:00:00 [place] i80-9my4-8 Count includes the [facility], [id number] Memor ia [address] [id number] l [place] (LUF/LI AVE, V/SA) [place] [address] 2021-02-23 2021-02-23 RIGHT E [facility] [id number] 08:15:00 12:44:00 [facility], Memoria PAIN [address] (LUF/LI AVE, V/SA) [place] [address] 2021-02-23 2021-02-23 Inpatient [facility] 89b5 d1de-[address] 00:00:00 00:00:00 [place] 09f-[id number]-9 Count includes the [facility], [id number] Memor ia [address] [id number] l [place] (LUF/LI AVE, V/SA) [facility] [place] [address] 2021-02-23 2021-02-23 Inpatient [facility] [place] [address] e20f-[address] [facility] [address] 00:00:00 00:00:00 [place] 1ef-425c-[id number] Count includes the [facility], [id number] Memor ia [address] 1655de l [place] (LUF/LI AVE, V/SA) [place] [address] 2021-01-10 2021-01-10 CALCULUS Jake JANIA, [facility] [id number] [facility] [address] 00:21:00 03:06:00 OF KIDNEY SETH [facility], Memoria [address] (LUF/LI AVE, V/SA) [place] [address] 2021-01-10 2021-01-10 Inpatient [facility] 2205-c [facility] 00:00:00 00:00:00 [place] i16-3j72-[id number] Count includes the [facility], [id number]-[id number] Memor ia [address] [id number] l [place] (LUF/LI AVE, V/SA) [place] [address] 2021-01-10 2021-01-10 Inpatient [facility] fe83-e [facility] 00:00:00 00:00:00 [place] [id number] Count includes the [facility], [id number] Memor ia [address] [id number] l [place] (LUF/LI AVE, V/SA) [place] [address] 2020-12-27 2020-12-27 Emergency [facility] Zarina [id number] [place] 00:00:00 00:00:[address] 2020-12-22 2020-12-22 Outpatient 3 LONI MURILLO TIC [id number] 09:00:00 09:00:00 SKYE Dhaliwal Memoria l (LUF/LI V/SA) 2020-12-13 2020-12-13 Emergency EM SHEY Perez AMPARO [id number] [facility] 01:53:00 06:36:00 Tangela 55 [facility] 2020-12-12 2020-12-12 RIGHT Jake COTTON, [facility] [address] [facility] [address] 12:33:00 14:00:00 LOWER [facility] [place], Memoria PAIN [address] [place] (LUF/LI AVE, V/SA) [place], [place] [address] 2020-12-12 2020-12-12 Inpatient [facility] e2c0 cb47-b [facility] 00:00:00 00:00:00 [place] 82f-45d0-a Count includes the [facility], [id number] Memor ia [address] [id number] l [place] (LUF/LI AVE, V/SA) [place], [place] [address] 2020-12-12 2020-12-12 Inpatient [facility] 43ed f7fe-[address] [facility] [address] 00:00:00 00:00:00 [place] i97-56bl-r Count includes the [facility], [id number] Memor ia [address] 70ade3 l [place] (LUF/LI AVE, V/SA) [place] [address] 2020-12-08 2020-12-08 UNSPECIFIE Jake SOTOMAYOR, [facility] [id number] [facility] 09:44:00 12:26:00 D WYATT [facility] a PAIN [address] [place] (LUF/LI AVE, V/SA) [place], [place] [address] 2020-12-08 2020-12-08 Inpatient [facility] 6a3f a794-a [facility] 00:00:00 00:00:00 [place] [id number] Count includes the [facility], [id number] Memor ia [address] [id number] l [place] (LUF/LI AVE, V/SA) [place] [address] 2020-11-25 2020-11-25 UNSPECIFIE [facility] [id number] [facility] [address] 00:13:00 00:30:00 D [facility] A[facility]OM[facility]AL [place], [facility]IN [address] [place] (LUF/LI AVE, V/SA) [place] [address] 2020-11-25 2020-11-25 Inpatient [facility] 3041 db6a-[address] [facility] [address] 00:00:00 00:00:00 [place] fb6-4754-[id number] Count includes the [facility], [id number] Memor ia [address] [id number] l [place] (LUF/LI AVE, V/SA) [place] [address] 2020-11-25 2020-11-25 Inpatient [facility] a3eb ed11-a [facility] 00:00:00 00:00:00 [place] [id number] Count includes the [facility], [id number] Memor ia [address] [id number] l [place] (LUF/LI AVE, V/SA) [place] [address] 2020-11-21 2020-11-21 ENDOMETRIO 1 [facility] 9[id number] [facility] 07:14:00 09:53:00 [facility] [place], Memor ia D [address] (LUF/LI A[address], V/SA) [place] [address] 2020-11-21 2020-11-21 Inpatient [facility] 90f0 [id number] [facility] [address] 00:00:00 00:00:00 [place] 8z3-61ck-3 Count includes the [facility], 4bb-[id number] Memor ia [address] [id number] l [place] (LUF/LI AVE, V/SA) [place] [address] 2020-11-21 2020-11-21 Inpatient [facility] 3b21 9c7a-[address] [facility] [address] 00:00:00 00:00:00 [place] 30a-405e-8 Count includes the [facility], [id number] Memor ia [address] [id number] l [place] (LUF/LI AVE, V/SA) [place] [address] 2020-11-14 2020-11-[address] YURYKHUSHI EMD [id number] 09:27:00 14:37:00 UNS REHAN [facility] Memoria BLEEDING l (LUF/LI V/SA) 2020-11-14 2020-11-14 Inpatient [facility] d4fe d3e2-[address] [facility] 00:00:00 00:00:00 [place] 3cf-[id number] Count includes the [facility], [id number] Memor ia [address] [id number] l [place] (LUF/LI AVE, V/SA) [place], [place] [address] 2020-11-14 2020-11-14 Inpatient [facility] 324e 65b9-b [facility] 00:00:00 00:00:00 [place] [id number] Count includes the [facility], [id number] Memor ia [address] [id number] l [place] (LUF/LI AVE, V/SA) [place], [place] [address] 2020-11-08 2020-11-08 OTHER E COTTON, [facility] [address] [facility] [address] 08:04:00 13:13:00 CHRONIC REHAN [facility], Memoria [address] [place] (LUF/LI A[address], V/SA) [place] [address] 2020-11-08 2020-11-08 Inpatient [facility] 8079 b52c-c [facility] 00:00:00 00:00:00 [place] [id number] Count includes the [facility], [id number] Memor ia [address] [id number] l [place] (LUF/LI AVE, V/[place]) [place] [address] 2020-11-08 2020-11-08 Inpatient [facility] 0f07 dc59-[address] [facility] [address] 00:00:00 00:00:00 [place] [id number] Count includes the [facility], [id number] Memor ia [address] [id number] l [place] (LUF/LI AVE, V/SA) [place] [address] 2020-11-08 2020-11-08 Inpatient [facility] 40b4 e14c-[address] 00:00:00 00:00:00 [place] [id number] Count includes the [facility], [id number] Memor ia [address] [id number] l [place] (LUF/LI AVE, V/SA) [place] [address] 2020-11-01 2020-11-01 NAUSEA E WANDA, [facility] [address] [facility] [address] 00:27:00 03:55:00 WITH CLEMENT [facility], Memoria UNSPECIFIE [address] D [place] (LUF/LI AVE, V/SA) [place] [address] 2020-11-01 2020-11-01 Inpatient [facility] 1ec3 64c1-c [facility] 00:00:00 00:00:00 [place] [id number] Count includes the [facility], [id number] Memor ia [address] [id number] l [place] (LUF/LI AVE, V/SA) [place] [address] 2020-11-01 2020-11-01 Inpatient [facility] 79c0 b023-[address] 00:00:00 00:00:00 [place] [id number]-z Count includes the [facility], [id number] Memor ia [address] [id number] l [place] (LUF/LI AVE, V/SA) [place] [address] 2020-10-04 2020-10-05 OTHER E SANANAVDEEP, [facility] [address] 23:32:00 01:00:00 CHRONIC JUAN [place] [facility] Memoria [address] (LUF/LI A[address], V/SA) [place] [address] 2020-10-04 2020-10-04 Inpatient [facility] b016 f3f5-a [facility] 00:00:00 00:00:00 [place] [id number] Count includes the [facility], [id number] Memor ia [address] [id number] l [place] (LUF/LI AVE, V/[place]) [place] [address] 2020-10-04 2020-10-04 Inpatient [facility] ea96 0c7a-[address] 00:00:00 00:00:00 [place] 25c-4997-b Count includes the [facility], [id number] Memor ia [address] [id number] l [place] (LUF/LI AVE, V/SA) [place] [address] 2020-09-18 2020-09-18 OTHER E [facility] [id number] [facility] [address] 01:00:00 04:44:00 CHRONIC [place] [facility] [place], Memoria [address] [place] (LUF/LI A[address], V/SA) [place] [address] 2020-09-18 2020-09-18 Inpatient [facility] b80a 7ee5-[address] 00:00:00 00:00:00 [place] [id number]-0 Gutierrez [facility], [id number] Memor ia [address] [id number] l [place] (LUF/LI A[address], V/SA) [place] [address] 2020-09-18 2020-09-18 Inpatient [facility] 1a33 0198-a [facility] 00:00:00 00:00:00 [place] [id number] Count includes the [facility], [id number] Memor ia [address] [id number] l [place] (LUF/LI A[address], V/[place]) [place] [address] 2020-09-12 2020-09-12 ENDOMETRIO E KOSCIUK, [facility] [id number] [facility] 00:46:00 02:38:00 SIS JUAN [facility] U[place]PEC[place]IE [place], Memor ia D [address] [place] (LUF/LI A[address], V/SA) [place] [address] 2020-09-12 2020-09-12 Inpatient [facility] 726d 153b-a [facility] 00:00:00 00:00:00 [place] [id number]-[id number] Count includes the [facility], [id number] Memor ia [address] [id number] l [place] (LUF/LI A[address], V/SA) [place] [address] 2020-09-12 2020-09-12 Inpatient [facility] 9a2d b59c-c [facility] 00:[facility]:00 00:00:00 [place] [id number] Count includes the [facility], [id number] Memor ia [address] 655cce l [place] (LUF/LI A[address], V/SA) [place] [address] 2020-08-22 2020-08-22 OTHER E SANALETA, [facility] [place] [facility] [id number] [facility] [address] 01:13:00 03:24:00 CHRONIC [facility] [address] (LUF/LI A[address], V/SA) [place] [address] 2020-08-22 2020-08-22 Inpatient [facility] 7a1d d2a9-[address] 00:00:00 00:00:00 [place] [id number] Count includes the [facility], [id number] Memor ia [address] [id number] l [place] (LUF/LI A[address], V/[place]) [place] [address] 2020-08-22 2020-08-22 Inpatient [facility] 53d3 2542-f [facility] 00:00:00 00:00:00 [place] 72a-4479-9 Count includes the [facility], [id number] [facility] [address] [id number] l [place] (LUF/LI A[address], V/SA) [place] [address] 2020-08-06 2020-08-06 Inpatient E RODRICK, [facility] [id number] [facility] [address] 01:21:00 03:35:00 [facility] [address] [place] (LUF/LI A[address], V/SA) [place] [address] 2020-08-06 2020-08-06 Inpatient [facility] 07b7 067c-a [facility] 00:00:00 00:00:00 [place] [id number] Count includes the [facility], [id number] Memor ia [address] [id number] l [place] (LUF/LI A[address], V/SA) [place] [address] 2020-07-19 2020-07-19 RIGHT E YURY, [facility] [address] 07:50:00 11:20:00 LOWER [facility] PAIN [address] (LUF/LI A[address], V/SA) [place] [address] 2020-07-19 2020-07-19 Inpatient [facility] 625d 6050-c [facility] 00:00:00 00:00:00 [place] 92c-[id number] Count includes the [facility], [id number] Memor ia [address] [id number] l [place] (LUF/LI A[address], V/[place]) [place] [address] 2020-07-19 2020-07-19 Inpatient [facility] 0f28 [id number] [facility] 00:00:00 00:00:00 [place] bbb-[id number] Count includes the [facility], [id number] Memor ia [address] [id number] l [place] (LUF/LI AVE, V/SA) [place] [address] 2020-07-05 2020-07-05 OTHER E RODRICK, [facility] 71218 78291 [facility] 02:42:00 05:00:00 CHRONIC JUAN [facility], Memoria [address] (LUF/LI A[address], V/SA) [place] [address] 2020-07-05 2020-07-05 Inpatient [facility] 525e 4189-f [facility] 00:00:00 00:00:00 [place] [id number] Count includes the [facility], [id number] Memor ia [id number] ([address], V/SA) [place] [address] 2020-07-05 2020-07-05 Inpatient [facility] [id number] [facility] 00:00:00 00:00:00 [place] [id number] Count includes the [facility], [id number] Memor [place] [address] [id number] ([address], V/SA) [place] [address] 2020-06-10 2020-06-10 (TEL) STLMLC STLMLC [id number] Co mmon 00:00:00 00:00:00 [facility] 2020-06-07 2020-06-07 Inpatient 1 YURY, [facility] [id number] [facility] 12:56:00 19:04:00 [facility] [address] ([address], V/SA) [place] [address] 2020-06-07 2020-06-07 Inpatient [facility] [place] [id number] [facility] 00:[facility]:00 00:00:00 [place] [id number] Count includes the [facility], [id number] [facility] [id number] ([address], V/SA) [place] [address] 2020-05-31 2020-05-31 Inpatient E YURY, [facility] [id number] 09:31:00 14:13:00 [facility] [address] ([address], V/SA) [place] [address] 2020-05-10 2020-05-10 Outpatient STLMLC STLMLC [id number] Common 00:00:00 00:00:00 [facility] 2020-05-09 2020-05-09 Outpatient STLMLC STLMLC [id number] Common 00:00:00 00:00:00 [facility] 2020-05-05 2020-05-05 Outpatient STLMLC STLMLC [id number] Common 00:00:00 00:00:00 [facility] 2020-05-02 2020-05-02 Outpatient STLMLC STLMLC [id number] Common 00:00:00 00:00:00 [facility] 2020-05-02 2020-05-02 Outpatient STLMLC STLMLC [id number] Common 00:00:00 00:00:00 [facility] 2020-04-29 2020-04-29 Outpatient STLMLC STLMLC [id number] Common 00:00:00 00:00:00 [facility] 2020-04-25 2020-04-25 LEFT LOWER E [facility] [id number] [facility] 16:46:00 21:30:00 [facility] [address], V/SA) [place]N ROS[place] [address] 2020-04-22 2020-04-22 Outpatient STLMLC STLMLC [id number] Common 00:00:00 00:00:00 [facility] 2020-04-20 2020-04-20 PROC&TX [facility] [id number] 15:39:00 16:03:00 NOT [place] [facility] [place] OUT PT [address] ([address], V/SA) [place] [address] 2020-04-20 2020-04-20 Outpatient STLMLC STLMLC [id number] Common 00:00:00 00:00:00 [facility] 2020-04-20 2020-04-20 Outpatient STLMLC STLMLC [id number] Common 00:00:00 00:00:00 [facility] 2020-04-15 2020-04-15 Outpatient STLMLC STLMLC [id number] Common 00:00:00 00:00:00 [facility] 2020-04-13 2020-04-13 Outpatient STLMLC STLMLC [id number] Common 00:00:00 00:00:00 [facility] 2020-04-12 2020-04-12 Outpatient STLMLC STLMLC [id number] Common 00:00:00 00:00:00 [facility] 2020-04-11 2020-04-11 Outpatient STLMLC STLMLC [id number] Common 00:00:00 00:00:00 [facility] 2020-04-08 2020-04-08 Outpatient STLMLC STLMLC [id number] Common 00:00:00 00:00:00 [facility] 2020-04-06 2020-04-06 Outpatient STLMLC STLMLC [id number] Common 00:00:00 00:00:00 [facility] 2020-04-04 2020-04-04 Outpatient STLMLC STLMLC [id number] Common 00:00:00 00:00:00 [facility] 2020-03-31 2020-03-31 Outpatient STLMLC STLMLC [id number] Common 00:00:00 00:00:00 [facility] 2020-03-29 2020-03-29 Outpatient [facility] CENTER [id number] 00:00:00 00:00:00 PRAVEEN payton 2020-03-29 2020-03-29 Outpatient STLMLC STLMLC [id number] Common 00:00:00 00:00:00 [facility] 2020-03-28 2020-03-28 Outpatient STLMLC STLMLC [id number] Common 00:00:00 00:00:00 [facility] 2020-03-22 2020-03-22 Outpatient STLMLC STLMLC [id number] Common 00:00:00 00:00:00 [facility] 2020-03-21 2020-03-21 Outpatient STLMLC STLMLC [id number] Common 00:00:00 00:00:00 [facility] 2020-03-20 2020-03-20 FEDE COTTON, [facility] [place] [id number] [facility] 17:08:00 22:56:00 ABDOMINAL REHAN [facility] PAIN [facility] UNSPECIFIE [address] (LUF/LI AVE, V/SA) JULIÁN ROSA [address] 2020-03-14 2020-03-17 CELLULITIS Jake STAFFORD, [facility] [place] [id number] 14:54:00 11:30:00 OF BUDDHISM [facility] ABDOMINAL [facility] a WALL [address] (LUF/LI A[address], V/SA) JULIÁN ROSA [address] 2020-03-03 2020-03-03 Outpatient [facility] [id number] Common 13:33:00 13:33:00 Clinics Clinics [facility] Women's Women's - [facility] Health I Health I [facility] 2020-03-02 2020-03-02 ALEJANDRA WOLFE, [facility] [id number] 05:58:00 15:35:00 PERITON LIZBETH [facility] POSTINFECT [address] (LUF/LI A[address], V/SA) JULIÁN ROSA [address] 2020-03-02 2020-03-02 Outpatient STLMLC STLC [id number] Common 00:00:00 00:00:00 [facility] 2020-03-01 2020-03-01 Outpatient [facility] [id number] Common 09:15:00 09:15:00 [facility] 2020-02-29 2020-02-29 Outpatient [facility] [id number] Common 09:30:00 09:30:00 [facility] 2020-02-25 2020-02-27 LOWER E COTTON, [facility] [place] [id number] [facility] [address] 13:21:00 12:09:00 ABDOMINAL REHAN [facility] PAIN [place], [facility] UNSPECIFIE [address] ([address]F/LI AVE, V/SA) [place] [address] 2020-02-25 2020-02-25 UNSPECIFIE E RODRICK, [facility] [place] [address] [id number] [facility] 00:40:00 05:00:00 D JUAN [facility] [place] [address] ([address]F/LI AVE, V/SA) [place] [address] 2020-01-25 2020-01-25 LOW BACK 1 COTTON, [facility] [place] 359[address] [id number] [facility] St 11:28:00 13:15:00 PAIN REHAN [facility] [address] ([address], V/SA) [place], JULIÁN [address] 2020-01-18 2020-01-18 Outpatient [facility] [id number] Common 11:45:00 11:45:00 [facility] 2019-12-09 2019-12-09 OTHER E [facility] [place] [address] [id number] [facility] [address] 03:03:00 05:08:00 CHRONIC [facility] [place] [address] ([address]/LI A[address], V/SA) [place] [address] 2019-11-24 2019-11-24 UNSPECIFIE E [facility] [place] [address] [id number] [facility] [address] 00:31:00 05:30:00 D [place]AST [place] [facility] [place], [facility] a PAIN [address] (LUF/LI A[address], V/SA) [place] [address] 2019-10-07 2019-10-07 RIGHT 1 YURY, [facility] [place] [id number] 20:35:00 23:10:00 LOWER [facility] [place], Memoria PAIN [address] ([address]F/LI A[address], V/SA) [place] [address] 2019-09-20 2019-09-20 RIGHT 1 YURY, [facility] [place] [id number] 00:33:00 04:23:00 LOWER [facility] QUADRANT [place], Memoria PAIN [address] ([address]F/LI A[address], V/SA) [place] [address] 2019-08-17 2019-08-17 UNSPECIFIE 1 RIVERA, [facility] [place] [id number] 02:18:00 04:45:00 D BUDDHISM [place] [facility] A[place]OM[place]AL [place], Memori a PAIN [address] ([address]F/LI A[address], V/SA) [facility] [place] [address] 2019-04-22 2019-04-22 Outpatient [facility] [id number] Common 12:03:00 12:03:00 Clinics [facility] 2019-04-14 2019-04-14 Outpatient [facility] [id number] Common 16:12:00 16:12:[address] Clinics [facility] 2019-04-06 2019-04-06 Outpatient [facility] [id number] Common 12:16:00 12:16:[address] Clinics [facility] 2019-03-31 2019-03-31 Outpatient [facility] [id number] Common 14:00:00 14:00:00 Clinics [facility] 2018-12-07 2018-12-07 UNSPECIFIE 1 QUINTIN BRITO [facility] [id number] [facility] 01:06:00 04:45:00 D OVARIAN [place] [facility] CYST RIGHT [place], [facility] SIDE [address] ([address]F/LI A[address], V/SA) [place] [address] 2018-10-29 2018-10-29 N-PRSS CHR BLAJAYLYNTAD, [facility] [id number] [facility] 06:59:00 23:59:00 ULCR SKIN MIKY [facility] MUSC [address] ([address]F/LI A[address], V/SA) [place] [address] 2018-10-22 2018-10-22 N-PRSS CHR BLAJAYLYNTAD, [facility] [id number] [facility] 07:20:00 23:59:00 ULCR SKIN MIKY [facility] [address] ([address]/LI A[address], V/SA) [place] [address] 2018-10-15 2018-10-15 N-PRSS CHR O BLAJAYLYNTAD, [facility] [id number] [facility] 07:08:00 23:59:00 ULCR SKIN MIKY [facility] [address] ([address]F/LI A[address], V/SA) [place] [address] 2018-09-30 2018-10-01 INFCT FOL 1 SHABNAM, [facility] [id number] [facility] 18:46:00 01:05:00 PRC SUPF DIMAS [facility] INC SRG [facility] SIT INIT [address] ([address], V/SA) [place] [address] 2018-09-01 2018-09-01 OTH 1 WANDA, [facility] [id number] 09:12:00 14:00:00 NONINFL CLEMENT [facility] D/O OVARY [facility] a TUBE&BRD [address] (LUF/LI AVE, V/SA) [place] [address] 2018-05-13 2018-05-13 Inpatient 1 WANDA, [facility] [id number] 10:52:00 13:46:00 CLEMENT [facility], Memoria [address] ([address]F/LI A[address], V/SA) [place] [address] 2017-12-24 2017-12-24 [address]NSPECIFIE [address] [facility] [id number] [facility] St 07:51:00 13:52:00 D OVARIAN [facility] CYST RIGHT [place], [facility] SIDE [address] ([address]F/LI A[address], V/SA) [place] [address] 2017-06-20 2017-06-21 HYDRONPHRO 1 RODRICK, [facility] [place] [id number] [facility] [address] 23:01:00 03:55:00 S JUAN [facility] RENL&URETR [place], [facility] L CALCUL [address] (LUF/LI A[address], V/SA) [place] [address] 2017-05-13 2017-05-13 OTHER 3 MERLE, [facility] [place] [id number] [facility] [address] 15:40:00 23:59:00 FATIGUE ASA [facility], [facility] [address] ([address], V/SA) [place] [address] Results Test Description Test Time Test Comments Results Result Comments Source COMP. METABOLIC PANEL (01850) 2022-02-19 14:56:05 Test Item Value Reference Range Interpretation Comme nts NA (test code = 9248052052) 137 mmol/L 135-145 K (test code = 1678025958) 4.2 mmol/L 3.5-5 CL (test code = 6723902439) 108 mmol/L 98-108 CO2 TOTAL (test code = 6605908681) 19 mmol/L 23-31 L AGAP (test code = 8278024858) 2-16 BUN (test code = 9040947523) 14 mg/dL 7-23 GLUCOSE (test code = 8447905194) 133 mg/dL 70-110 H CREATININE (test code = 0.56 mg/dL 0.5-1.04 1090778052) TOTAL BILI (test code = 0.4 mg/dL 0.1-1.1 6052823428) CALCIUM (test code = 5056994243) 8.9 mg/dL 8.6-10.6 T PROTEIN (test code = 9921291768) 6.5 g/dL 6.3-8.2 ALBUMIN (test code = 1430348442) 4.0 g/dL 3.5-5 ALK PHOS (test code = 3449001266) 84 U/L 34-122 ALTv (test code = 1742-6) 23 U/L 5-35 AST(SGOT) (test code = 5808129468) 24 U/L 13-40 eGFR (test code = 2739171412) mL/min/1.73m2 RENZO (test code = RENZO) Association [...] tests). Lab Interpretation (test code = Abnormal 83991-2) [facility] 14[facility]55:44 Test Item Value Reference Range Interpretation Comments LIPASE (test code = 3359854400) 81 U/L 0-220 Lab Interpretation (test code = Normal 35185-0) [facility] WITH [id number] 14:36:26 Test Item Value Reference Range Interpretation [...] RDW-SD (test code = 43.9 fL 39-49.9 85439-0) RDW-CV (test code = 13.7 % 12-15.5 788-0) PLT (test code = See_Comment [Automated 777-3) message] The sy stem which generated this result transmitted reference range : 166 - 358 10*3/ ?L. The reference r bruce was not used to interpret this result as normal/abnormal . MPV (test code = 8.5 fL 9.5-12.9 L 53396-7) NRBC/100 WBC (test See_Comment [Automat ed code = 5649559971) message] The system which generated this result transmitted reference range : 0.0 - 10.0 /100 WBCs. The refer ence range was not u sed to interpret th is result as normal/abnormal . NRBC x10^3 (test code See_Comment [Auto mated = 0666973404) message] The s ystem which generated this result transmitted reference range : 10*3/?L. The reference range was not used to interpret this result as normal/abnormal . GRAN MAT (NEUT) % 58.7 % (test code = 770-8) IMM GRAN % (test code 1.10 % = 0911786207) LYMPH % (test code = 31.6 % 736-9) MONO % (test code = 6.8 % 5905-5) EOS % (test code = 1.4 % 713-8) BASO % (test code = 0.4 % 706-2) GRAN MAT x10^3(ANC) 3.30 10*3/uL 1.88-7.09 (test code = 1172142017) IMM GRAN x10^3 (test 0.06 10*3/uL 0-0.06 code = 2928412764) LYMPH x10^3 (test code 1.77 10*3/uL 1.32-3.29 = 731-0) MONO x10^3 (test code 0.38 10*3/uL 0.33-0.92 = 742-7) EOS x10^3 (test code = 0.08 10*3/uL 0.03-0.39 711-2) BASO x10^3 (test code 0.01-0.07 = 704-7) Lab Interpretation Abnormal (test code = 39913-0) [facility] [id number] 22:58:14 Test Item Value Reference Range Interpretation Comments POCT Molecular FluA (test code = Negative Negative 87896-4) POCT Molecular FluB (test code = Negative Negative 84277-6) Lab Interpretation (test code = Normal 37466-0) [facility] (LIVER)2021-10-16 13:57:00 Test Item [...] (test code = 0.2 mg/dl 0.0-1.1 IBIL) [id number] 13:57:00 Test Item Value Reference Range Interpretation Comments Lipase (test code = LIPA) 114 U/L 73-393 AMYLASE, [id number] 13:57:00 Test Item Value Reference Range Interpretation Comments Amylase (test code = AMYL) 51 U/L 25-115 STAT LAB CHEM [id number] 22:45:00 Test Item Value Reference Range Interpretation [...] 24.0-29.0 L STAT LAB CBC WITH AUTO [id number] 22:43:00 Test Item Value Reference Range Interpretation [...] = IG%) 0.2 % 0.0-0.4 HEPATIC FUNCTION [id number] 13:03:00 Test Item Value Reference Range Interpretation [...] 96 Unit/L 45-117 N code = ALKP) [id number] 13:03:00 Test Item Value Reference Range Interpretation Comments LIPASE (test code = LIP) 83 Unit/L 114-286 L BASIC METABOLIC [id number] 13:03:00 Test Item Value Reference Range Interpretation [...] 8.5-10.1 N UA RFLX MICR CULT IF [id number] 12:44:00 Test Item Value Reference Range Interpretation [...] OF URINE: CLEAN CATCH- CT ABD PELVIS [id number] 12:27:00 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 [...] in the abdomen or pelvis. No bowel obstruction.LOCATION: B2 This CT exam was performed according to our departmental dose optimization program, which includes automated exposure control, adjustment of the mA and or kV according to patient size and/or use of iterative reconstruction technique. PAGE 1 Signed Report (CONTINUED) Name: [facility]EN 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 CC: Olga Clements DO; Marco Hilton NP Technologist:Elmer Laguna RT(R) CTDI: DLP: Trnscb Date/Time: 08/07/2021 (4469) 16 Orig Print D/T: S: 08/07/2021 (8482) PAGE 2 Signed ReportCBC W/AUTO [id number] 12:23:00 Test Item Value Reference Range Interpretation [...] FT (test code Negative Negative N The [employer] SARS -CoV-2 = COVID) (qualifier value) Reagents f or BD MAX System, the [employer] Covid-19, and janel bolden Cepheid Covid-1 9 is for in vitro us e under FDA Emergency U se Authorization o nly. Each method abo ve is a rapid, real alice e PCR (RT-PCR) molecu lar test used for janel bolden qualitative det ection of nucleic acid from the SARS-CoV-2 in upper respirato ry specimens colle cted from individual s suspected of CO VID-19. For questions regarding your test results, please contact the [facility] at [phone]. [id number] 12:37:00 Test Item Value Reference Range Interpretation [...] 0.5-1.3 code = CREA) EGFR if >60 Uzbek (test code mL/min/1.73m\\ = EGFRAA) S\\2 EGFR if Non- >60 Estimate d Glomerular Uzbek (test code mL/min/1.73m\\ Filtrat ion Rate (eGFR) [...] of c hronic kidney failure. STAT LAB [id number] 12:11:00 Test Item Value Reference Range Interpretation [...] after the clini felipa event. PT AND [id number] 12:09:00 Test Item Value Reference Range Interpretation Comments Protime (test code 9.5 seconds 9.5-12.1 = PT) INR (test code = 0.9 0.9-1.1 INR results are intended INR) ONLY to monitor Oral Anticoagulant t herapy in stablized patie nts. The INR Therapeutic Range is 2.0 - 3.0 Patie nts with a mechanical he art, the INR Range is 2. 5 - 3.5 [id number] 12:09:00 Test Item Value Reference Range Interpretation Comments aPTT (test code = PTT) 22.3 seconds 23.9-30.7 L STAT LAB CBC WITH AUTO [id number] 11:57:00 Test Item Value Reference Range Interpretation [...] 0.3 % 0.0-0.4 XR CHEST AP/PA 1 [id number] 11:33:32 [facility])Name: LAUREN BETH : 1985 Sex: FProcedure: XR CHEST AP/PA 1 VIEWOrder Date: 03/24/2021 10:57 AMOrdering Provider: REHAN COTTONClinical Indication: [id number]: DyspneaComparison: September 30, 2018Findings:Cardiac size is normal.Pulmonary vasculature is normal.Mediastinal contour is normal.Aortic contour is normal.No acute infiltrates or effusions.There is no mass or pneumothorax.There is no evidence of active tuberculosis.There isno acute skeletal abnormality.Impression: Negative AP view of the chest.This final report was electronically signed by Dr Farzad Dewitt MD :28 AMDictated By: FARZAD DEWITTDate: :28CULTURE, [id number] 08:00:00Specimen: Urine SpecimensCollected: 03/10/2021 11:50 Status: Final [...] code = NEGATIVE NEGATIVE N UKET) Specific [place] 1.015 1.005-1.030 A (test code = USPGR) Blood (test code = NEGATIVE NEGATIVE N UBLD) PH (test code = UPH) 7.0 4.5-8.0 A Protein (test code = NEGATIVE NEGATIVE N UPROT) Urobilinogen (test 0.2 See_Comment N [Automat ed message] code = U UROB) The system [employer] generated this result transmit michael reference range [...] = NSE) STAT LAB CBC WITH AUTO [id number] 12:10:00 Test Item Value Reference Range Interpretation [...] 0.8 % 0.0-0.4 H STAT LAB CHEM [id number] 12:08:00 Test Item Value Reference Range Interpretation [...] = CREA) 0.5 mg/dl 0.6-1.3 L CULTURE, [id number] 08:26:00Specimen: Urine SpecimensCollected: 02/23/2021 08:35 Status: Final Last Updated: 02/24/2021 08:26 CULTURE (Final) (Final) Many Mixed Body Gabriela Isolated No Pathogens IsolatedCT ABDOMEN/PELVIS W/CONTRAST 2021-02-23 11:40:43 [facility] ([facility]/)Name: LAUREN BETH : 1985 Sex: FProcedure: CT ABDOMEN/PELVIS W/CONTRASTOrder date: 02/23/2021 10:08 AMOrdering Provider: REHAN Farrellinical Indication: [id number]: Right lower quadrant painComparison: November 14, 2020Technique: [...] MD 111:35 AMDictated By: WILEY VELÁZQUEZDate: 02/23/2021 11:[id number] 10:44:00 Test Item Value Reference Range Interpretation Comments Lipase (test code = LIPA) 86 U/L 73-393 URINALYSIS WITH [id number] 08:58:00 Test Item Value Reference Range Interpretation Comments Color (test code = Light-Yellow UCOLR) Clarity (test code = Clear UCLAR) Glucose (test code = NEGATIVE NEGATIVE N UGLUC) Bilirubin (test code NEGATIVE NEGATIVE N = UBILI) Ketones (test code = NEGATIVE NEGATIVE N UKET) Specific [place] 1.020 1.005-1.030 A (test code = USPGR) Blood (test code = NEGATIVE NEGATIVE N UBLD) PH (test code = UPH) 6.0 4.5-8.0 A Protein (test code = NEGATIVE NEGATIVE N UPROT) Urobilinogen (test 0.2 See_Comment N [Automat ed message] code = U UROB) The system [facility] generated this result transmit michael [...] = SQEP) STAT LAB CBC WITH AUTO [id number] 08:52:00 Test Item Value Reference Range Interpretation [...] IG%) 0.3 % 0.0-0.4 STAT LAB CHEM [id number] 08:52:00 Test Item Value Reference Range Interpretation [...] mg/dl 0.6-1.3 STAT LAB CBC WITH AUTO [id number] 02:37:00 Test Item Value Reference Range Interpretation [...] A value of 55 was entered by [id number] on 01/10/2021 02:3 7 Lymphocytes (test 43 % 13-42 H No previou s value code = LYMPH) was reported. A value of 43 was entered by [id number] on 01/10/2021 02:3 7 Monocytes (test 1 % 4-14 L No previous value code = MONOS) was reported. A value of 1 was entered by [id number] on 01/10/2021 02:3 7 Basophils (test 1 % 0-1 No previous value code = BASO) was reported. A value of 1 was entered by [id number] on 01/10/2021 02:3 7 Normal Morphology Normal WBC RBC Normal RBC \\T\\ N No pre vious value (test code = NRCM) and Platelet WBC was repor michael. A Morphology Morphology,Normal value of N ormal WBC RBC and WBC RBC and Platelet Platelet Morphology Morphology was entered by [id number] on 01/10/2021 02:3 7 AMYLASE, [id number] 02:14:00 Test Item Value Reference Range Interpretation Comments Amylase (test code = AMYL) 46 U/L 25-115 [id number] 02:14:00 Test Item Value Reference Range Interpretation Comments Lipase (test code = LIPA) 115 U/L 73-393 URINALYSIS WITH [id number] 02:07:00 Test Item Value Reference Range Interpretation Comments Color (test code = Light-Yellow UCOLR) Clarity (test code = Cloudy UCLAR) Glucose (test code = NEGATIVE NEGATIVE N UGLUC) Bilirubin (test code NEGATIVE NEGATIVE N = UBILI) Ketones (test code = NEGATIVE NEGATIVE N UKET) Specific [place] 1.025 1.005-1.030 A (test code = USPGR) Blood (test code = NEGATIVE NEGATIVE N UBLD) PH (test code = UPH) 6.0 4.5-8.0 A Protein (test code = NEGATIVE NEGATIVE N UPROT) Urobilinogen (test 0.2 See_Comment N [Automat ed message] code = U UROB) The system [facility] generated this result transmit michael [...] (test code = NSE) STAT LAB CHEM [id number] 01:50:00 Test Item Value Reference Range Interpretation [...] 0.6 mg/dl 0.6-1.3 - CT ABD PELVIS [id number] 03:46:00 [facility] 1985 Sex: F FAX: Annemarie Tesfaye [phone] [place]: St: REG Name: LAUREN BETH [facility] : 1985 Age/S: 35/F [address] Unit: [id number] Loc: [place] [address] 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 The appendix is not visual ized. OTHER: Uterus is surgically absent. IMPRESSION: No acute findings in the abdomen or pelvis. Postsurgical changes in the stomach, cholecystectomy, appendectomy and hysterectomy. 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 Acct: [id number] Dis Date: Status: REG ER PHONE #: [phone] Exam Date: 12/13/2020 0325 FAX #: [phone] Reason: DIFFUSE ABD PAIN WORSE RLQ, HX APPY, ROSE EXAMS: CPT CODE: [id number] CT ABD PELVIS W/CONT 29296 <Continued> CC: Annemarie Tesfaye DRAWING KILN OPERATOR Technologist: PAMELA KRISHNAMURTHY; Jessi Guillory; JAIRO SANCHEZ JR Trnscrd Dt/Tm: 12/13/2020 (0346) VereniceMA50 Orig Print D/T: S: 12/13/2020 (1699 PAGE 2 Signed ReportCOMPREHENSIVE METABOLIC [id number] 03:32:00 Test Item Value Reference Range Interpretation [...] U/L 38-126 N (test code = ALKP) [id number] 03:32:00 Test Item Value Reference Range Interpretation Comments LIPASE (test code = LIP) 82 U/L 23-300 N BEDSIDE [id number] 03:24:00 Test Item Value Reference Range Interpretation Comments BEDSIDE CREATININE (test code = 0.60 mg/dL 0.51-1.19 N CREATBED) CBC W/AUTO [id number] 03:14:00 Test Item Value Reference Range Interpretation [...] 0.0-0.1 N UA RFLX MICR CULT IF [id number] 02:59:00 Test Item Value Reference Range Interpretation [...] OF URINE: VOIDEDSTAT LAB CBC WITH AUTO [id number] 15:12:00 Test Item Value Reference Range Interpretation [...] 82 on 12/12/2020 15:12 STAT LAB CHEM [id number] 14:08:00 Test Item Value Reference Range Interpretation [...] mg/dl 0.6-1.3 L STAT LAB URINALYSIS WITHOUT [id number] 12:08:00 Test Item Value Reference Range Interpretation Comments Color (test code = Light-Yellow UCOLR) Clarity (test code = Cloudy UCLAR) Glucose (test code = NEGATIVE NEGATIVE N UGLUC) Bilirubin (test code NEGATIVE NEGATIVE N = UBILI) Ketones (test code = NEGATIVE NEGATIVE N UKET) Specific [place] 1.015 1.005-1.030 A (test code = USPGR) Blood (test code = NEGATIVE NEGATIVE N UBLD) PH (test code = UPH) 7.0 4.5-8.0 A Protein (test code = NEGATIVE NEGATIVE N UPROT) Urobilinogen (test 0.2 See_Comment N [Automat ed message] code = U UROB) The system [facility] generated this result transmit michael [...] = 0.4 mg/dl 0.0-1.1 IBIL) URINALYSIS WITH [id number] 08:31:00 Test Item Value Reference Range Interpretation Comments Color (test code = Light-Yellow UCOLR) Clarity (test code = Clear UCLAR) Glucose (test code = NEGATIVE NEGATIVE N UGLUC) Bilirubin (test code NEGATIVE NEGATIVE N = UBILI) Ketones (test code = NEGATIVE NEGATIVE N UKET) Specific [place] 1.020 1.005-1.030 A (test code = USPGR) Blood (test code = NEGATIVE NEGATIVE N UBLD) PH (test code = UPH) 6.5 4.5-8.0 A Protein (test code = NEGATIVE NEGATIVE N UPROT) Urobilinogen (test 0.2 See_Comment N [Automat ed message] code = U UROB) The system [facility] generated this result transmit michael [...] (test code = SQEP) STAT LAB CHEM [id number] 08:27:00 Test Item Value Reference Range Interpretation [...] 0.6-1.3 L STAT LAB CBC WITH AUTO [id number] 08:26:00 Test Item Value Reference Range Interpretation [...] 0.0-0.4 XR ABDOMEN 2 VIEWS FLAT / [id number] 08:18:50 [facility] ([facility]Name: LAUREN BETH : 1985 Sex: FProcedure: XR ABDOMEN 2 VIEWS FLAT / UPRIGHTOrder Date: 11/21/2020 7:43 AMOrdering Provider: REHAN Farrellinical Indication: [id number]: Abdominal painComparison: Nov 14 2020Findings:Bowel gas pattern is non-obstructive. No pneumoperitoneum.There is moderate volume stool burden.Surgical clips in the right upper quadrant of the abdomen.Impression:Nonobstructive bowel gas pattern.This final reportwas electronically signed by Dr Silver Benitez MD :13 AMDictated By: GLORY BENITEZKDate: 11/21/2020 08:13CT ABDOMEN/PELVIS W/O [id number] 14:11:31 [facility] ([facility]Name: LAUREN BETH : 1985 Sex: FProcedure: CT ABDOMEN/PELVIS W/O CONTRASTOrder Date: 11/14/2020 1:22 PMOrdering Provider: BILLY ACOSTA .Clinical Indication: [id number]: Right flank painComparison: Renal ultrasound November 08, [...] electronically signed by Dr Farzad Dewitt MD 5/17/52203:05 PMDictated By: FARZAD DEWITTDate: 11/14/2020 14:05STAT LAB , [id number] 13:31:00 Test Item Value Reference Range Interpretation Comments (Urine) (test code = Negative PREGU) ONLY AVAILABLE 8A-12MNSTAT LAB CHEM [id number] 11:09:00 Test Item Value Reference Range Interpretation [...] mg/dl 0.6-1.3 L STAT LAB URINALYSIS WITHOUT [id number] 11:08:00 Test Item Value Reference Range Interpretation Comments Color (test code = Yellow Lt. Yellow A UCOLR) Clarity (test code = Clear UCLAR) Glucose (test code = Negative Negative N UGLUC) Bilirubin (test code Negative Negative N = UBILI) Ketones (test code = Negative Negative N UKET) Specific [place] 1.025 1.005-1.030 A (test code = USPGR) Blood (test code = Trace-intact Negative A UBLD) PH (test code = UPH) 6.0 4.5-8.0 A Protein (test code = Negative Negative N UPROT) Urobilinogen (test 0.2 See_Comment N [Automat ed message] code = U UROB) The system [facility] generated this result transmit michael reference range : 0.2. The refere nce range was not u sed to interpret th is result as normal/abnormal . Nitrite (test code = Negative Negative N UNITR) Leukocyte Esterase Negative Negative N (test code = ULEUK) STAT LAB CBC WITH AUTO [id number] 11:05:00 Test Item Value Reference Range Interpretation [...] code = IG%) 0.4 % 0.0-0.4 CULTURE, [id number] 08:43:00Specimen: Urine SpecimensCollected: 11/08/2020 09:59 Status: Final Last Updated: 11/09/2020 08:43 CULTURE (Final) (Final) Few Mixed Body Gabriela Isolated No Pathogens IsolatedUS RENAL & BLADDER (KIDNEYS) 2020-11-08 12:00:28 [facility] ([facility])Name: LAUREN BETH : 1985 Sex: FProcedure: US [...] AMDictated By: GLORY BENITEZKDate: 11/08/2020 11:54URINALYSIS WITH [id number] 10:58:00 Test Item Value Reference Range Interpretation Comments Color (test code = Yellow UCOLR) Clarity (test code = Clear UCLAR) Glucose (test code = NEGATIVE NEGATIVE N UGLUC) Bilirubin (test code = NEGATIVE NEGATIVE N UBILI) Ketones (test code = NEGATIVE NEGATIVE N UKET) Specific [place] (test 1.030 1.005-1.030 A code = USPGR) Blood (test code = NEGATIVE NEGATIVE N UBLD) PH (test code = UPH) 6.0 4.5-8.0 A Protein (test code = NEGATIVE NEGATIVE N UPROT) Urobilinogen (test code 0.2 See_Comment N [Au tomated message] = U UROB) The system [employer] generated this result transmitted ref erence range: [...] 0-10 A (test code = SQEP) CULTURE, [id number] 08:13:00ER 17Specimen: Urine SpecimensCollected: 11/01/2020 01:10 Status: Final Last Updated: 11/02/2020 08:13 (1) ER 17 CULTURE (Final) (Final) Few Mixed Body Gabriela Isolated No Pathogens IsolatedXR ABD SERIES W/PA [id number] 03:48:37 [facility] ([facility]/)Name: LAUREN BETH : 1985 Sex: FPROCEDURE INFORMATION:Exam: [...] Ramos MD on October13:48 AM CDT.Dictated By: Salome RAMOS: 11/01/2020 03:48HEPATIC FUNCTION PANEL (LIVER)2020-11-01 02:14:00 Test [...] mg/dl 0.0-1.1 IBIL) ER 17STAT LAB CHEM [id number] 01:57:00 Test Item Value Reference Range Interpretation [...] 0.5 mg/dl 0.6-1.3 L ER 17URINALYSIS WITH [id number] 01:56:00 Test Item Value Reference Range Interpretation Comments Color (test code = Light-Yellow UCOLR) Clarity (test code = Clear UCLAR) Glucose (test code = 50 NEGATIVE A UGLUC) Bilirubin (test code NEGATIVE NEGATIVE N = UBILI) Ketones (test code = NEGATIVE NEGATIVE N UKET) Specific [place] 1.025 1.005-1.030 A (test code = USPGR) Blood (test code = NEGATIVE NEGATIVE N UBLD) PH (test code = UPH) 6.0 4.5-8.0 A Protein (test code = TRACE NEGATIVE A UPROT) Urobilinogen (test 0.2 See_Comment N [Automat ed message] code = U UROB) The system [employer] generated this result transmit michael reference range [...] SQEP) ER 17STAT LAB CBC WITH AUTO [id number] 01:55:00 Test Item Value Reference Range Interpretation [...] code = 0.1 mg/dl 0.0-1.1 IBIL) er [id number] 01:26:00 Test Item Value Reference Range Interpretation Comments Lipase (test code = LIPA) 154 U/L 73-393 ER 10STAT LAB CHEM [id number] 01:15:00 Test Item Value Reference Range Interpretation [...] 0.6 mg/dl 0.6-1.3 er 10STAT LAB , [id number] 01:14:00 Test Item Value Reference Range Interpretation Comments (Urine) (test code = Negative PREGU) er 10STAT LAB CBC WITH AUTO [id number] 01:13:00 Test Item Value Reference Range Interpretation [...] = IG%) 0.9 % 0.0-0.4 H er [id number] 04:21:00 Test Item Value Reference Range Interpretation [...] code = 0.1 mg/dl 0.0-1.1 IBIL) AMYLASE, [id number] 04:21:00 Test Item Value Reference Range Interpretation Comments Amylase (test code = AMYL) 47 U/L 25-115 URINALYSIS WITH [id number] 03:06:00 Test Item Value Reference Range Interpretation Comments Color (test code = Light-Yellow UCOLR) Clarity (test code = Clear UCLAR) Glucose (test code = NEGATIVE NEGATIVE N UGLUC) Bilirubin (test code NEGATIVE NEGATIVE N = UBILI) Ketones (test code = TRACE NEGATIVE A UKET) Specific [place] 1.025 1.005-1.030 A (test code = USPGR) Blood (test code = NEGATIVE NEGATIVE N UBLD) PH (test code = UPH) 5.5 4.5-8.0 A Protein (test code = NEGATIVE NEGATIVE N UPROT) Urobilinogen (test 0.2 See_Comment N [Automat ed message] code = U UROB) The system [employer] generated this result transmit michael reference range [...] (test code = NSE) STAT LAB CHEM [id number] 02:51:00 Test Item Value Reference Range Interpretation [...] mg/dl 0.6-1.3 STAT LAB CBC WITH AUTO [id number] 02:50:00 Test Item Value Reference Range Interpretation [...] ABDOMEN 1 VIEW (KUB)2020-09-12 01:51:21 [facility] ([facility])Name: LAUREN BETH : 1985 Sex: FPROCEDURE [...] ALLENDate: 09/12/2020 01:50STAT LAB CBC WITH AUTO [id number] 01:29:00 Test Item Value Reference Range Interpretation [...] IG%) 0.4 % 0.0-0.4 STAT LAB CHEM [id number] 01:28:00 Test Item Value Reference Range Interpretation [...] = CREA) 0.6 mg/dl 0.6-1.3 URINALYSIS WITH [id number] 03:04:00 Test Item Value Reference Range Interpretation Comments Color (test code = Yellow UCOLR) Clarity (test code = Clear UCLAR) Glucose (test code = 100 NEGATIVE A UGLUC) Bilirubin (test code = NEGATIVE NEGATIVE N UBILI) Ketones (test code = TRACE NEGATIVE A UKET) Specific [place] (test >=1.030 1.005-1.030 A code = USPGR) Blood (test code = NEGATIVE NEGATIVE N UBLD) PH (test code = UPH) 5.5 4.5-8.0 A Protein (test code = NEGATIVE NEGATIVE N UPROT) Urobilinogen (test code 0.2 See_Comment N [Au tomated message] = U UROB) The system [employer] generated this result transmitted ref erence range: [...] code = 3+ None Seen,Trace A UBACT) [id number] 03:01:00 Test Item Value Reference Range Interpretation [...] ( 4 - SerumAlbumin)] EGFR if >60 Uzbek (test code mL/min/1.73m\\ = EGFRAA) S\\2 EGFR if Non- >60 Estimate d Glomerular Uzbek (test code mL/min/1.73m\\ Filtrat ion Rate (eGFR) [...] and management of c hronic kidney failure. [id number] 03:01:00 Test Item Value Reference Range Interpretation Comments Lipase (test code = LIPA) 145 U/L 73-393 STAT LAB TEST, Serum [id number] 02:48:00 Test Item Value Reference Range Interpretation Comments (Serum) (test code = Negative PREGS) STAT LAB CBC WITH AUTO [id number] 02:28:00 Test Item Value Reference Range Interpretation [...] code = 0.1 mg/dl 0.0-1.1 IBIL) ER [id number] 02:59:00 Test Item Value Reference Range Interpretation Comments Lipase (test code = LIPA) 167 U/L 73-393 ER 16URINALYSIS WITH [id number] 02:48:00 Test Item Value Reference Range Interpretation Comments Color (test code = UCOLR) Yellow Clarity (test code = UCLAR) Clear Glucose (test code = UGLUC) NEGATIVE NEGATIVE N Bilirubin (test code = UBILI) NEGATIVE NEGATIVE N Ketones (test code = UKET) NEGATIVE NEGATIVE N Specific [place] (test code = >=1.030 1.005-1.030 A USPGR) [...] None Seen,Trace A ER 16CT ABDOMEN/PELVIS W/O [id number] 02:34:52ER 16 R/O KIDNEY STONE [facility] ([facility])Name: LAUREN BTEH : [id number] Sex: FPROCEDURE INFORMATION:Exam: CT Abdomen And Pelvis [...] By: HOLLIS FERRERADate: 08/06/2020 02:34STAT LAB CHEM [id number] 02:29:00 Test Item Value Reference Range Interpretation [...] L ER 16STAT LAB CBC WITH AUTO [id number] 02:29:00 Test Item Value Reference Range Interpretation [...] = IG%) 0.7 % 0.0-0.4 H ER [id number] 09:31:00 Test Item Value Reference Range Interpretation [...] IBIL) XR ABDOMEN 2 VIEWS FLAT / [id number] 09:22:50 [facility] ([facility])Name: LAUREN BETH : [id number] Sex: FProcedure: XR ABDOMEN 2 VIEWS FLAT / UPRIGHTOrder Date: 07/19/2020 8:40 AMOrdering Provider: REHAN COTTON .Clinical Indication: [id number]: Abdominal painComparison: July 05, 2020Findings:Postoperative change consisting [...] By: FARZAD DEWITTDate: 07/19/2020 09:17STAT LAB CHEM [id number] 09:10:00 Test Item Value Reference Range Interpretation [...] 0.6-1.3 L STAT LAB CBC WITH AUTO [id number] 09:09:00 Test Item Value Reference Range Interpretation [...] % 0.0-0.4 H STAT LAB URINALYSIS WITHOUT [id number] 09:08:00 Test Item Value Reference Range Interpretation Comments Color (test code = UCOLR) Yellow Lt. Yellow A Clarity (test code = UCLAR) Clear Glucose (test code = UGLUC) Negative Negative N Bilirubin (test code = UBILI) Negative Negative N Ketones (test code = UKET) Negative Negative N Specific [place] (test code = USPGR) >=1.030 1.005-1.030 A Blood (test code = UBLD) Negative Negative N PH (test code = UPH) 6.0 4.5-8.0 A Protein (test code = UPROT) Negative Negative N Urobilinogen (test code = U UROB) 0.2 >0.2 N Nitrite (test code = UNITR) Negative Negative N Leukocyte Esterase (test code = Negative Negative N ULEUK) CULTURE, [id number] 08:00:00Specimen: Urine SpecimensCollected: 07/05/2020 03:00 Status: Final Last Updated: 07/07/2020 08:00 CULTURE (Final) (Final) No Growth After 48 HoursXR ABDOMEN 1 VIEW (KUB)2020-07-05 04:07:04 [facility] ([facility])Name: LAUREN BETH : [id number] Sex: FPROCEDURE INFORMATION:Exam: XR Abdomen, 1 ViewExam [...] By: OSKAR CRANEte: 07/05/2020 04:06STAT LAB , [id number] 03:54:00 Test Item Value Reference Range Interpretation Comments (Urine) (test code = Negative PREGU) STAT LAB CHEM [id number] 03:53:00 Test Item Value Reference Range Interpretation [...] 0.6-1.3 L STAT LAB CBC WITH AUTO [id number] 03:51:00 Test Item Value Reference Range Interpretation [...] = IG%) 0.4 % 0.0-0.4 URINALYSIS WITH [id number] 03:33:00 Test Item Value Reference Range Interpretation Comments Color (test code = UCOLR) Yellow Clarity (test code = UCLAR) Clear Glucose (test code = UGLUC) NEGATIVE NEGATIVE N Bilirubin (test code = UBILI) Small NEGATIVE A Ketones (test code = UKET) TRACE NEGATIVE A Specific [place] (test code = USPGR) 1.020 1.005-1.030 A [...] UBACT) Trace None Seen,Trace N CT ABDOMEN/PELVIS W/[id number] 16:44:35 [facility] ([facility]/)Name: LAUREN BETH : [id number] Sex: FProcedure: CT ABDOMEN/PELVIS W/CONTRASTOrder date: 06/07/2020 3:47 PMOrdering Provider: REHAN Farrellinical Indication: [id number]: Left flank painComparison: 06/07/20Technique: Multiple axial helical [...] PMDictated By: WILEY VELÁZQUEZDate: 06/07/2020 16:38URINALYSIS WITH [id number] 15:22:00 Test Item Value Reference Range Interpretation Comments Color (test code = UCOLR) Yellow Clarity (test code = UCLAR) Clear Glucose (test code = UGLUC) NEGATIVE NEGATIVE N Bilirubin (test code = UBILI) NEGATIVE NEGATIVE N Ketones (test code = UKET) NEGATIVE NEGATIVE N Specific [place] (test code = USPGR) 1.020 1.005-1.030 A [...] Trace None Seen,Trace N STAT LAB CHEM [id number] 15:10:00 Test Item Value Reference Range Interpretation [...] 0.6-1.3 L STAT LAB CBC WITH AUTO [id number] 15:08:00 Test Item Value Reference Range Interpretation [...] W/O CON (RENAL STONE)2020-06-07 14:56:05 [facility] ([facility])Name: LAUREN BETH : [id number] Sex: FProcedure: CT ABD/ PELVIS W/O CON (RENAL STONE)Order date: 06/07/2020 2:18 PMOrdering Provider: REHAN Farrellinical Indication: [id number]: Left flank painComparison: 05/31/20TECHNIQUE: Using a helical [...] By: WILEY VELÁZQUEZDate: 06/07/2020 14:49CT ABDOMEN/PELVIS W/O [id number] 12:27:07NPO 4 hours. Do not withhold meds hyst [facility] ([facility])Name: LAUREN BETH : [id number] Sex: FProcedure: CT ABDOMEN/PELVIS W/O CONTRASTOrder Date: 05/31/2020 10:25 AMOrdering Provider: ME JESUS RYANClinical Indication: [id number]: Pain radiating to right flankComparison: March 20, [...] 116 U/L 73-393 STAT LAB URINALYSIS WITHOUT [id number] 10:59:00 Test Item Value Reference Range Interpretation Comments Color (test code = UCOLR) Light yellow Lt. Yellow A Clarity (test code = UCLAR) Clear Glucose (test code = UGLUC) Negative Negative N Bilirubin (test code = UBILI) Negative Negative N Ketones (test code = UKET) Negative Negative N Specific [place] (test code = 1.025 1.005-1.030 A USPGR) Blood (test code = UBLD) Negative Negative N PH (test code = UPH) 6.0 4.5-8.0 A Protein (test code = UPROT) Negative Negative N Urobilinogen (test code = U 0.2 >0.2 N UROB) Nitrite (test code = UNITR) Negative Negative N Leukocyte Esterase (test code = Negative Negative N ULEUK) STAT LAB CBC WITH AUTO [id number] 10:58:00 Test Item Value Reference Range Interpretation [...] 0.5 % 0.0-0.4 H STAT LAB CHEM [id number] 10:53:00 Test Item Value Reference Range Interpretation [...] ABDOMEN 1 VIEW (KUB)2020-04-25 21:02:16 [facility])Name: LAUREN BETH : [id number] Sex: FPROCEDURE INFORMATION:Exam: XR Abdomen, 1 ViewExam [...] code = UKET) Negative Negative N Specific [place] (test code = 1.020 1.005-1.030 A USPGR) [...] Seen,Trace A STAT LAB CBC WITH AUTO [id number] 18:55:00 Test Item Value Reference Range Interpretation [...] of Platel et clumping was entered by [id number] on 04/25/2020 18:5 5 STAT LAB CHEM [id number] 18:17:00 Test Item Value Reference Range Interpretation [...] CREA) 0.4 mg/dl 0.6-1.3 L CULTURE, ANAEROBE [id number] 15:20:00FIRST DRAW = 1 aerobic and 1 anerobic CultureSpecimen: BloodCollected: 03/20/2020 18:30 Status: Final Last Updated: 03/26/2020 15:19 (1) FIRST DRAW = 1 aerobic and 1 anerobic Culture CULTURE (Final) (Final) No Growth After 5 DaysCULTURE, [id number] 15:20:00FIRST DRAW = 1 aerobic and 1 anerobic CultureSpecimen: BloodCollected: 03/20/2020 18:30 Status: Final Last Updated: 03/26/2020 15:19 (1) FIRST DRAW = 1 aerobic and 1 anerobic Culture CULTURE (Final) (Final) No Growth After 5 DaysCT ABDOMEN/PELVIS W/[id number] 21:46:442 weeks s/p adhesolysis. Vomiting/pain/fever. Please do CT with PO and IV contrastProcedures: CT ABDOMEN/PELVIS W/CONTRASTExam Date: 03/20/2020 6:04 PMOrdering Physician: REHAN Farrellinical Indication: [id number]: Abdominal painComparison: CT abdomen/pelvis, 02/25/20TECHNIQUE: Spiral multislice [...] (test code = 0.3 mg/dl 0.0-1.1 IBIL) [id number] 19:24:00 Test Item Value Reference Range Interpretation Comments Lipase (test code = LIPA) 69 U/L 73-393 L [id number] 19:24:00 Test Item Value Reference Range Interpretation Comments Magnesium (test code = MG) 2.0 mg/dl 1.6-2.6 STAT LAB CHEM [id number] 18:43:00 Test Item Value Reference Range Interpretation [...] 0.5 mg/dl 0.6-1.3 L STAT LAB LACTIC [id number] 18:42:00 Test Item Value Reference Range Interpretation Comments LACTATE (test code = 2.50 mmol/l 0.90-1.70 R&RB sy rene hassan rn LAC) @1842 STAT LAB CBC WITH AUTO [id number] 18:41:00 Test Item Value Reference Range Interpretation [...] PLMNT MIDLINE NO PORT > 5 y/o W/[id number] 13:21:10Procedure: SP PERC PLMNT MIDLINE NO PORT [...] secured to the skin in the usual fashion.Proof Sorter images were recorded and stored in the [...] lection of specimen. XR ABD SERIES W/PA [id number] 17:33:07Procedure: XR ABD SERIES W/PA CXROrder Date: [...] BENITEZKDate: 03/13/2020 17:26STAT LAB CBC WITH AUTO [id number] 17:23:00 Test Item Value Reference Range Interpretation [...] entered by [id number] on 03/13/2020 17:23 [id number] 17:23:00 Test Item Value Reference Range Interpretation [...] = 0.4 mg/dl 0.0-1.1 IBIL) URINALYSIS WITH [id number] 16:54:00 Test Item Value Reference Range Interpretation Comments Color (test code = UCOLR) Yellow Lt. Yellow A Clarity (test code = UCLAR) Clear Glucose (test code = UGLUC) Negative Negative N Bilirubin (test code = UBILI) Negative Negative N Ketones (test code = UKET) Negative Negative N Specific [place] (test code = >=1.030 1.005-1.030 A USPGR) [...] 4+ None Seen,Trace A STAT LAB CHEM [id number] 16:37:00 Test Item Value Reference Range Interpretation [...] PLMNT MIDLINE NO PORT > 5 y/o [id number] 12:23:44Procedure: SP PERC PLMNT MIDLINE NO PORT [...] recommend recol lection of specimen. PT AND [id number] 11:51:00 Test Item Value Reference Range Interpretation Comments Protime (test code 9.8 seconds 9.5-12.1 = PT) INR (test code = 0.9 0.9-1.1 INR results are intended INR) ONLY to monitor Oral Anticoagulant t herapy in stablized patie nts. The INR Therapeutic Range is 2.0 - 3.0 Patie nts with a mechanical he art, the INR Range is 2. 5 - 3.5 [id number] 11:51:00 Test Item Value Reference Range Interpretation [...] BE NOTED ON THE RE PORT. CULTURE, [id number] 08:08:00Specimen: Urine RandomCollected: 02/25/2020 11:27 Status: Final Last Updated: 02/27/2020 08:08 CULTURE (Final) (Final) No Growth After 48 [id number] 05:38:00 Test Item Value Reference Range Interpretation [...] 0.5-1.3 code = CREA) EGFR if >60 Uzbek (test code mL/min/1.73m\\ = EGFRAA) S\\2 EGFR if Non- >60 Estimate d Glomerular Uzbek (test code mL/min/1.73m\\ Filtrat ion Rate (eGFR) [...] 0.04 mIU/L 0.35-3.74 L CBC WITH AUTO [id number] 05:18:00 Test Item Value Reference Range Interpretation [...] System, the Bio Fire Covid-19, and t yuan Cepheid Covid-1 9 is for in vitro us e under FDA Emergency U se Authorization o nly. Indeterminate r esults recommend recol lection of specimen. URINALYSIS WITH [id number] 12:56:00 Test Item Value Reference Range Interpretation Comments Color (test code = UCOLR) Yellow Lt. Yellow A Clarity (test code = UCLAR) Slightly Cloudy Glucose (test code = UGLUC) Negative Negative N Bilirubin (test code = UBILI) Negative Negative N Ketones (test code = UKET) Negative Negative N Specific [place] (test code = >=1.030 1.005-1.030 A USPGR) [...] code = UBACT) Trace None Seen,Trace N [id number] 12:52:00 Test Item Value Reference Range Interpretation [...] = 0.3 mg/dl 0.0-1.1 IBIL) CT ABDOMEN/PELVIS W/[id number] 12:42:41NPO 4 hours. Do not withhold meds [...] WILEY VELÁZQUEZDate: 02/25/2020 12:36 STAT LAB CHEM [id number] 12:07:00 Test Item Value Reference Range Interpretation [...] 0.6-1.3 L STAT LAB CBC WITH AUTO [id number] 12:05:00 Test Item Value Reference Range Interpretation [...] % 0.0-0.4 STAT LAB CBC WITH AUTO [id number] 03:15:00 Test Item Value Reference Range Interpretation [...] 0.6 % 0.0-0.4 H STAT LAB CHEM [id number] 02:55:00 Test Item Value Reference Range Interpretation [...] JORGE LUIS WHITEDate: 02/25/2020 02:45STAT LAB , [id number] 01:12:00 Test Item Value Reference Range Interpretation Comments (Urine) (test code = Negative PREGU) STAT LAB URINALYSIS WITHOUT [id number] 01:11:00 Test Item Value Reference Range Interpretation Comments Color (test code = UCOLR) Yellow Lt. Yellow A Clarity (test code = UCLAR) Clear Glucose (test code = UGLUC) Negative Negative N Bilirubin (test code = UBILI) Negative Negative N Ketones (test code = UKET) Negative Negative N Specific [place] (test code = USPGR) >=1.030 1.005-1.030 A [...] By: JORGE LUIS WHITEDate: 02/10/2020 05:31URINALYSIS WITH [id number] 05:10:00 Test Item Value Reference Range Interpretation Comments Color (test code = UCOLR) Yellow Lt. Yellow A Clarity (test code = UCLAR) Clear Glucose (test code = UGLUC) >=1000 Negative A Bilirubin (test code = UBILI) Negative Negative N Ketones (test code = UKET) Negative Negative N Specific [place] (test code = 1.015 1.005-1.030 A USPGR) [...] = UBACT) None Seen None Seen,Trace N [id number] 04:42:00 Test Item Value Reference Range Interpretation [...] 0.2 mg/dl 0.0-1.1 IBIL) STAT LAB CHEM [id number] 04:27:00 Test Item Value Reference Range Interpretation [...] CREA) 0.6 mg/dl 0.6-1.3 STAT LAB , [id number] 04:24:00 Test Item Value Reference Range Interpretation Comments (Urine) (test code = Negative PREGU) STAT LAB CBC WITH AUTO [id number] 04:22:00 Test Item Value Reference Range Interpretation [...] % 0.0-0.[address] L SPINE W/O [id number] 12:46:24Procedure: CT L SPINE W/O CONTRASTOrder date: 01/25/2020 11:46 AMOrdering Provider: DONALD Healyinical Indication: [id number]: Low back painComparison: NoneTechnique: Using a multislice [...] code = 0.3 mg/dl 0.0-1.1 IBIL) ER [id number] 05:49:00 Test Item Value Reference Range Interpretation Comments Lipase (test code = LIPA) 105 U/L 73-393 ER 7STAT LAB CHEM [id number] 05:06:00 Test Item Value Reference Range Interpretation [...] L ER 7STAT LAB CBC WITH AUTO [id number] 05:04:00 Test Item Value Reference Range Interpretation [...] code = IG%) 0.4 % 0.0-0.4 ER [id number] 02:23:00 Test Item Value Reference Range Interpretation [...] ( 4 - SerumAlbumin)] EGFR if >60 Uzbek (test code mL/min/1.73m\\ = EGFRAA) S\\2 EGFR if Non- >60 Estimate d Glomerular Uzbek (test code mL/min/1.73m\\ Filtrat ion Rate (eGFR) [...] of c hronic kidney failure. URINALYSIS WITH [id number] 02:11:00 Test Item Value Reference Range Interpretation Comments Color (test code = UCOLR) Yellow Lt. Yellow A Clarity (test code = UCLAR) Clear Glucose (test code = UGLUC) Negative Negative N Bilirubin (test code = UBILI) Negative Negative N Ketones (test code = UKET) Trace Negative A Specific [place] (test code = USPGR) >=1.030 1.005-1.030 A [...] Seen,Trace A STAT LAB CBC WITH AUTO [id number] 02:03:00 Test Item Value Reference Range Interpretation [...] = IG%) 0.4 % 0.0-0.4 CT ABDOMEN/PELVIS [id number] 22:43:00NPO 4 hours. Do not withhold meds [...] 201910:42 PM CDT.Dictated By: JOSUÉ MCGHEEDate: 10/07/2019 22:[id number] 22:05:00 Test Item Value Reference Range Interpretation [...] 0.5-1.3 code = CREA) EGFR if >60 Uzbek (test code mL/min/1.73m\\ = EGFRAA) S\\2 EGFR if Non- >60 Estimate d Glomerular Uzbek (test code mL/min/1.73m\\ Filtrat ion Rate (eGFR) [...] management of c hronic kidney failure. AMYLASE, [id number] 22:05:00 Test Item Value Reference Range Interpretation Comments Amylase (test code = AMYL) 43 U/L 25-115 [id number] 22:05:00 Test Item Value Reference Range Interpretation Comments Lipase (test code = LIPA) 95 U/L 73-393 URINALYSIS WITH [id number] 21:49:00 Test Item Value Reference Range Interpretation Comments Color (test code = UCOLR) Yellow Lt. Yellow A Clarity (test code = UCLAR) Clear Glucose (test code = UGLUC) Negative Negative N Bilirubin (test code = UBILI) Negative Negative N Ketones (test code = UKET) 15 Negative A Specific [place] (test code = USPGR) >=1.030 1.005-1.030 A [...] Seen,Trace A STAT LAB CBC WITH AUTO [id number] 21:45:00 Test Item Value Reference Range Interpretation [...] IG%) 0.4 % 0.0-0.4 STAT LAB , [id number] 21:36:00 Test Item Value Reference Range Interpretation Comments (Urine) (test code = Negative PREGU) CT ABDOMEN/PELVIS W/O [id number] 03:56:36PROCEDURE INFORMATION:Exam: CT Abdomen And Pelvis Without [...] 3:56 AM CDT.Dictated By: AMY ORDOÑEZDate: 09/20/2019 03:[id number] 02:07:00 Test Item Value Reference Range Interpretation [...] ( 4 - SerumAlbumin)] EGFR if >60 Uzbek (test code mL/min/1.73m\\ = EGFRAA) S\\2 EGFR if Non- >60 Estimate d Glomerular Uzbek (test code mL/min/1.73m\\ Filtrat ion Rate (eGFR) [...] failure. XR ABDOMEN 2 VIEWS FLAT / [id number] 02:01:15PROCEDURE INFORMATION:Exam: XR Abdomen, 2 ViewsExam date [...] CDT.Dictated By: AMY ORDOÑEZDate: 09/20/2019 02:01URINALYSIS WITH [id number] 01:56:00 Test Item Value Reference Range Interpretation Comments Color (test code = UCOLR) Yellow Lt. Yellow A Clarity (test code = UCLAR) Clear Glucose (test code = UGLUC) >=1000 Negative A Bilirubin (test code = UBILI) Negative Negative N Ketones (test code = UKET) Trace Negative A Specific [place] (test code = USPGR) >=1.030 1.005-1.030 A [...] Seen,Trace A STAT LAB CBC WITH AUTO [id number] 01:38:00 Test Item Value Reference Range Interpretation [...] IG%) 0.5 % 0.0-0.[address] ABDOMEN/PELVIS W/[id number] 04:23:30PROCEDURE INFORMATION:Exam: CT Abdomen And Pelvis With [...] 20194:23 AM CDT.Dictated By: SETH MEDINADate: 08/17/2019 04:[id number] 03:34:00 Test Item Value Reference Range Interpretation Comments Lipase (test code = LIPA) 67 U/L 73-393 L [id number] 03:34:00 Test Item Value Reference Range Interpretation [...] ( 4 - SerumAlbumin)] EGFR if >60 Uzbek (test code mL/min/1.73m\\ = EGFRAA) S\\2 EGFR if Non- >60 Estimate d Glomerular Uzbek (test code mL/min/1.73m\\ Filtrat ion Rate (eGFR) [...] kidney failure. STAT LAB CBC WITH AUTO [id number] 03:19:00 Test Item Value Reference Range Interpretation [...] IG%) 0.7 % 0.0-0.4 H URINALYSIS WITH [id number] 03:10:00 Test Item Value Reference Range Interpretation Comments Color (test code = UCOLR) YELLOW Clarity (test code = UCLAR) CLEAR Glucose (test code = UGLUC) NEGATIVE NEGATIVE N Bilirubin (test code = UBILI) NEGATIVE NEGATIVE N Ketones (test code = UKET) NEGATIVE NEGATIVE N Specific [place] (test code = 1.025 1.005-1.030 A USPGR) [...] 1+ None Seen,Trace A STAT LAB , [id number] 03:03:00 Test Item Value Reference Range Interpretation Comments (Urine) (test code = Negative PREGU) ONLY AVAILABLE 8A-20HOUQ7 [id number] 20:37:00 Test Item Value Reference Range Interpretation [...] code = CREA) 0.6 mg/dl 0.6-1.2 ED2 [id number] 20:28:00 Test Item Value Reference Range Interpretation [...] = MPV) 7.1 fL 8.0-11.0 A CULTURE, [id number] 08:44:34lqj0Yhwmqepn: Urine SpecimensCollected: 07/12/2019 15:00 Status: Final Last Updated: 2019 08:44 (1) err7 Culture Result (Final) (Final) Moderate Mixed Body Gabriela Isolated No Pathogens Isolated No Further Workup PerformedFL LIMITED [id number] 17:53:41Procedures: FL LIMITED IVPExam Date: 07/12/2019 3:21 PMOrdering Physician: REHAN Farrellinical Indication: [id number]: Flank painComparison: CT abdomen/pelvis, 05/17/19Findings: Frontal radiographs [...] MD07/12/2019 5:47 PMDictated By: ELMER PHAMDate: 07/12/2019 17:[id number] 15:56:00 Test Item Value Reference Range Interpretation Comments Lipase (test code = LIPA) 97 U/L 73-393 fzq1CPWFWVP FUNCTION PANEL (LIVER)2019-07-12 15:56:00 Test Item Value [...] (test code = 0.2 mg/dl 0.0-1.1 IBIL) ueg5ACURBHTNGU WITH [id number] 15:51:00 Test Item Value Reference Range Interpretation Comments Color (test code = UCOLR) YELLOW Clarity (test code = UCLAR) CLEAR Glucose (test code = UGLUC) NEGATIVE NEGATIVE N Bilirubin (test code = UBILI) NEGATIVE NEGATIVE N Ketones (test code = UKET) NEGATIVE NEGATIVE N Specific [place] (test code = 1.020 1.005-1.030 A USPGR) [...] code = UBACT) 4+ None Seen,Trace A hfx5AEPI LAB CHEM [id number] 15:09:00 Test Item Value Reference Range Interpretation [...] (test code = CREA) 0.6 mg/dl 0.6-1.3 pay6IGMM LAB CBC WITH AUTO [id number] 15:08:00 Test Item Value Reference Range Interpretation [...] = IG%) 0.4 % 0.0-0.4 err7CT ABDOMEN/PELVIS W/[id number] 16:33:46NPO 4 hours. Do not withhold medsProcedures: CT ABDOMEN/PELVIS W/CONTRASTExam Date: 05/17/2019 1:31 PMOrdering Physician: MERLE Jiménezinical Indication: [id number]: Abdominal painComparison: CT abdomen/pelvis, 04/09/19TECHNIQUE: Spiral multislice [...] MD05/17/2019 4:27 PMDictated By: ELMER PHAMDate: 05/17/2019 16:[id number] 16:20:00 Test Item Value Reference Range Interpretation Comments Lipase (test code = LIPA) 70 U/L 73-393 L STAT LAB CHEM [id number] 15:24:00 Test Item Value Reference Range Interpretation [...] 0.5 mg/dl 0.6-1.3 L STAT LAB LACTIC [id number] 15:23:00 Test Item Value Reference Range Interpretation Comments LACTATE (test code = LAC) 1.39 mmol/l 0.90-1.70 STAT LAB CBC WITH AUTO [id number] 15:21:00 Test Item Value Reference Range Interpretation [...] IG%) 0.5 % 0.0-0.4 H URINALYSIS WITH [id number] 15:08:00 Test Item Value Reference Range Interpretation Comments Color (test code = UCOLR) YELLOW Clarity (test code = UCLAR) CLEAR Glucose (test code = UGLUC) NEGATIVE NEGATIVE N Bilirubin (test code = UBILI) NEGATIVE NEGATIVE N Ketones (test code = UKET) NEGATIVE NEGATIVE N Specific [place] (test code = 1.025 1.005-1.030 A USPGR) [...] None Seen,Trace A CT ANGIO HEAD W/WO [id number] 16:28:5720 g Cathlon Above the Antecubital or higher requiredProcedure: CT ANGIO HEAD W/WO CONTRASTOrder Date: 05/12/2019 3:30 PMOrdering Provider: REHAN Farrellinical Indication: [id number]: HeadacheComparison: NoneTechnique: Using a helical scanner, sequential axial imaging of the brain wasobtained before and after the administration of the contrast medium. At anindependent workstation, 3-D reconstructions of the kaibab of [place] wereobtained.This examwas performed according to [...] By: FARZAD DEWITTDate: 05/12/2019 16:22 CT ABDOMEN/PELVIS W/[id number] 14:36:05NPO 4 hours. Do not withhold meds [...] By: GLORY BENITEZKDate: 04/09/2019 14:29CBC WITH AUTO [id number] 09:02:00 Test Item Value Reference Range Interpretation [...] % 0.0-0.4 H IG%) CBC WITH AUTO [id number] 09:14:00 Test Item Value Reference Range Interpretation [...] (test code = 0.4 % 0.0-0.4 IG%) [id number] 09:12:00 Test Item Value Reference Range Interpretation [...] 0.5-1.3 code = CREA) EGFR if >60 Uzbek (test code mL/min/1.73m\\ = EGFRAA) S\\2 EGFR if Non- >60 Estimate d Glomerular Uzbek (test code mL/min/1.73m\\ Filtrat ion Rate (eGFR) [...] PLMNT MIDLINE NO PORT > 5 y/o W/[id number] 16:11:23Procedure: SP PERC PLMNT MIDLINE NO PORT [...] PMDictated By: WILEY VELÁZQUEZDate: 04/07/2019 16:05CT ABDOMEN/PELVIS W/[id number] 22:50:40PROCEDURE INFORMATION:Exam: CT Abdomen and pelvis with [...] 10:50 PM CDT.Dictated By: ELMER PHAMDate: 04/04/2019 22:[id number] 21:22:00 Test Item Value Reference Range Interpretation [...] 0.3 mg/dl 0.0-1.1 IBIL) STAT LAB CHEM [id number] 21:07:00 Test Item Value Reference Range Interpretation [...] 0.6 mg/dl 0.6-1.3 STAT LAB URINALYSIS WITHOUT [id number] 21:05:00 Test Item Value Reference Range Interpretation Comments Color (test code = UCOLR) Yellow Lt. Yellow A Clarity (test code = UCLAR) Slightly Cloudy Glucose (test code = UGLUC) 100 Negative A Bilirubin (test code = UBILI) Negative Negative N Ketones (test code = UKET) Negative Negative N Specific [place] (test code = >=1.030 1.005-1.030 A USPGR) Blood (test code = UBLD) Negative Negative N PH (test code = UPH) 5.5 4.5-8.0 A Protein (test code = UPROT) Negative Negative N Urobilinogen (test code = U 0.2 >0.2 N UROB) Nitrite (test code = UNITR) Negative Negative N Leukocyte Esterase (test code Negative Negative N = ULEUK) STAT LAB , [id number] 21:04:00 Test Item Value Reference Range Interpretation Comments (Urine) (test code = Negative PREGU) ONLY AVAILABLE 8A-12MNSTAT LAB CBC WITH AUTO [id number] 21:04:00 Test Item Value Reference Range Interpretation [...] code = IG%) 0.5 % 0.0-0.4 H ED2 [id number] 16:05:00 Test Item Value Reference Range Interpretation Comments Sodium (test code = CANCELED mmol/l The r eleased value NA) 141 was cancele d by [place] [id number] on 04/04/2019 16:0 5 Potassium (test code CANCELED mmol/l The released value = K) 3.9 was cancele d by [place] [address] on 04/04/2019 16:0 5 CO2 (test code = CANCELED mmol/l The rele ased value CO2) 23 was canceled by [id number] on 04/04/2019 16:0 5 Chloride (test code CANCELED mmol/l The r eleased value = CL) 108 was cancele d by [place] [address] on 04/04/2019 16:0 5 Glucose (test code = CANCELED mg/dl The r eleased value GLU) 96 was canceled by [place] [address] on 04/04/2019 16:0 5 Calcium (test code = CANCELED mg/dl The r eleased value CALC) 8.8 was cancele d by [id number] on 04/04/2019 16:0 5 BUN (test code = CANCELED mg/dl The relea sed value BUN) 11 was canceled by [id number] on 04/04/2019 16:0 5 Creatinine (test CANCELED mg/dl code = CREA) HISTOLOGY [id number] 11:08:[address] [place] [address]Wvewo: [phone] BIYO #: [id number] MedicalDirector: Seth Vasu José Miguel, M.D.Surgical Pathology Consultation ReportPatient Name: LAUREN BETH Case #: [id number] Med. Rec. #:[id number] [id number] Date: 03/21/2019 : 1985(Age:33) Received: 03/23/2019 [...] greatest dimension. The cystsarefilled with clearserous fluid. Proof Sorter sections of the ovaryandpossible fallopian tube are submitted in cassettes A1-A8. /03/23/2019 Seth Valdez MD, Board Certified in Anatomic Pathology Microscopic Descriptio nMicroscopic examination of the right ovary reveals fibrovascularadhesionsalong the surface of the ovary as well as along the accompanyingfallopiantube. The ovarian parenchyma contains follicular cysts, benign serouscyst,as well as numerous corpus albicans. No areas of endometriosis areseen. Billing Fee Code(s): A; 49633- US TRANSVAGINAL W/[id number] 16:45:00 Patient Name: ADELIA BETH Unit No: [id number] EXAMS: CPT CODE: [id number] US TRANSVAGINAL W/PELVIS 19625 CLINICAL HISTORY: Right lower quadrant pain. Status [...] MD Technologist: Dipesh Miranda RDMS, T Probe: [id number] Trnscrbd D/ (6340) t.YOS Orig Print D/T: S: 03/10/2019 (1876) [facility] NAME: ADELIA BETH Radiology Department [facility] - Hilaria Calderón [address] : 1985 AGE: 33 SEX: F [place] [address] LOC: ALONDRA PHONE #: [phone] EXAM DATE: 03/10/2019 STATUS: REG ER FAX #: [phone] RAD NO: Page 1 Signed Report Patient Name: ADELIA BETH Unit No: [id number] EXAMS: CPT CODE: [id number] US TRANSVAGINAL W/PELVIS 18960 <Continued> [facility] NAME: ADELIA BETH Radiology Department PHYS: SUE. - Hilaria Calderón [address] : 1985 AGE: 33 SEX: F [place] [address] LOC: ALONDRA PHONE #: [phone] EXAM DATE: 03/10/2019 STATUS: REG ER FAX #: [phone] RAD NO: Page 2 Signed Report- US TRANSVAGINAL W/[id number] 16:45:00 Patient Name: LAUREN BETH Unit No: [id number] EXAMS: CPT CODE: [id number] US TRANSVAGINAL W/PELVIS 79322 CLINICAL HISTORY: Right lower quadrant pain. Status [...] MD Technologist: Dipesh Miranda RDMS, T Probe: [id number] Trnscrbd D/ (1645) AtilioS Orig Print D/T: S: 03/10/2019 (0498) [facility] NAME: LAUREN BETH Radiology Department PHYS: Hilaria Maldonado [address] : 1985 AGE: 33 SEX: F [place], [place] [address] LOC: ALONDRA PHONE #:[phone] EXAM DATE: 03/10/2019 STATUS: DEP ER FAX #: [phone] RAD NO: [id number] Page 1 Signed Report Patient Name: LAUREN BETH Unit No: [id number] EXAMS: CPT CODE: [id number] US TRANSVAGINAL W/PELVIS 93018 (Continued) [facility] NAME: LAUREN BETH Radiology Department PHYS: NIGEL StephaneHilaria [address] : 1985 AGE: 33 SEX: F [place], [place] [address] LOC: DayanaraERS PHONE #: [phone] EXAM DATE: 03/10/2019 STATUS: [facility] ER FAX #: [phone] RAD NO: [id number] Page 2 Signed Report- US PELVIS [id number] 16:45:00 Patient Name: ADELIA BETH Unit No: [id number] EXAMS: CPT CODE: [id number] US PELVIS COMPLETE 56877 CLINICAL HISTORY: Right lower quadrant pain. Status [...] is identified in the right ovary. at 4535 Reported and signed by: Mario Guidry MD CC: Hilaria Calderón MD Technologist: Dipesh Miranda RDMS, RVT Probe: Trnscrbd D/ (6707) Ro Orig Print D/T: S: 03/10/2019 (7710) [facility] NAME: ADELIA BETH Radiology Department PHYS: Conchis Maldonadoondra [address] : 1985 AGE: 33 SEX: [place] [address] LOC: ALONDRA PHONE #: [phone] EXAM DATE: STATUS: REG ER FAX #: [phone] RAD NO: Page 1 Signed Report Patient Name: ADELIA BETH Unit No: [id number] EXAMS: CPT CODE: [id number] US PELVIS COMPLETE 74224 <Continued> [facility] NAME: ADELIA BETH Radiology Department PHYS: Hilaria Maldonado [address] : 1985 AGE: 33 SEX: [place] [address] LOC: DayanaraERS PHONE #: [phone] EXAM DATE: 03/10/2019 STATUS: REG ER FAX #: [phone] RAD NO: Page 2 Signed Report- US PELVIS [id number] 16:45:00 Patient Name: LAUREN BETH Unit No: [id number] EXAMS: CPT CODE: [id number] US PELVIS COMPLETE 71059 CLINICAL HISTORY: Right lower quadrant pain. Status [...] Miranda RDMS, RVT Probe: Trnscrbd D/ (1645) janelLAURENIrwinEmmaYOS Orig Print D/T: S: 03/10/2019 (3378) [facility] NAME: LAUREN BETH Radiology Department PHYS: GUTAL. - Conchis Calderónondra [address] : 1985 AGE: 33 SEX: F [place] [address] LOC: Dayanara[place] PHONE #: [phone] EXAM DATE: 03/10/2019 STATUS: DEP ER FAX #: [phone] RAD NO: [id number] Page 1 Signed Report Patient Name: LAUREN BETH Unit No: [id number] EXAMS: CPT CODE: [id number] US PELVIS COMPLETE 48989 (Continued) [facility] NAME: LAUREN BETH Radiology Department PHYS: GUTAL. - Amy Calderóna [address] : 1985 AGE: 33 SEX: F [place] [address] LOC: DayanaraERS PHONE #: [phone] EXAM DATE: 03/10/2019 STATUS: DEP ER FAX #: [phone] RAD NO: [id number] Page 2 Signed ReportCBC W/AUTO DIFF 2019-03-10 [...] = PLTMR) UA RFLX MICR CULT IF [id number] 16:07:00 Test Item Value Reference Range Interpretation [...] A Indication for culture: Suprapubic PainUR HCG [id number] 16:07:00 Test Item Value Reference Range Interpretation [...] culture: Suprapubic PainUA RFLX MICR CULT IF [id number] 16:04:00 Test Item Value Reference Range Interpretation [...] EPIU) Indication for culture: Suprapubic PainUR HCG [id number] 16:04:00 Test Item Value Reference Range Interpretation [...] culture: Suprapubic PainUA RFLX MICR CULT IF [id number] 15:55:00 Test Item Value Reference Range Interpretation [...] RARE-FEW Indication for culture: Suprapubic PainUR HCG [id number] 15:55:00 Test Item Value Reference Range Interpretation [...] and tested. Indication for culture: Suprapubic PainED2 [id number] 01:18:00 Test Item Value Reference Range Interpretation [...] MPV) 6.9 fL 8.0-11.0 A ED2 URINE [id number] 00:55:00 Test Item Value Reference Range Interpretation Comments Color (test code = UCOLR) Yellow Lt. Yellow A Clarity (test code = UCLAR) Clear Glucose (test code = UGLUC) NEGATIVE NEGATIVE N Bilirubin (test code = UBILI) NEGATIVE NEGATIVE N Ketones (test code = UKET) NEGATIVE NEGATIVE N Specific [place] (test code = USPGR) 1.030 1.005-1.030 A Blood (test code = UBLD) NEGATIVE NEGATIVE N PH (test code = UPH) 6.0 4.5-8.0 A Protein (test code = UPROT) Trace NEGATIVE A Urobilinogen (test code = U UROB) 0.2 >0.2 N Nitrite (test code = UNITR) NEGATIVE NEGATIVE N Leukocyte Esterase (test code = NEGATIVE NEGATIVE N ULEUK) ED2 , [id number] 00:54:00 Test Item Value Reference Range Interpretation Comments (Urine) (test code = Negative PREGU) [id number] 13:07:00 Test Item Value Reference Range Interpretation Comments Lipase (test code = LIPA) 106 U/L 73-[address] ABDOMEN/PELVIS W/[id number] 12:24:12Procedures: ED2 CT ABDOMEN/PELVIS W/CONTRASTExam Date: 02/07/2019 10:11 AMOrdering Physician: WYATT Downsinical Indication: [id number]: Epigastric painComparison: CT abdomen/pelvis, 01/27/19TECHNIQUE: Spiral multislice [...] 12:17 PMDictated By: ELMER PHAMDate: 02/07/2019 12:17ED2 [id number] 10:48:00 Test Item Value Reference Range Interpretation [...] = TP) 7.6 gm/dl 6.4-8.1 ED2 URINE [id number] 10:45:00 Test Item Value Reference Range Interpretation Comments Color (test code = UCOLR) Yellow Lt. Yellow A Clarity (test code = UCLAR) Sl Cloudy Glucose (test code = UGLUC) NEGATIVE NEGATIVE N Bilirubin (test code = UBILI) NEGATIVE NEGATIVE N Ketones (test code = UKET) NEGATIVE NEGATIVE N Specific [place] (test code = 1.025 1.005-1.030 A USPGR) Blood (test code = UBLD) NEGATIVE NEGATIVE N PH (test code = UPH) 5.5 4.5-8.0 A Protein (test code = UPROT) NEGATIVE NEGATIVE N Urobilinogen (test code = U UROB) 0.2 >0.2 N Nitrite (test code = UNITR) NEGATIVE NEGATIVE N Leukocyte Esterase (test code = NEGATIVE NEGATIVE N ULEUK) ED2 , [id number] 10:45:00 Test Item Value Reference Range Interpretation Comments (Urine) (test code = Negative PREGU) ED2 [id number] 10:44:00 Test Item Value Reference Range Interpretation [...] MPV) 6.8 fL 8.0-11.[address] ABDOMEN/PELVIS W/[id number] 12:29:19s/p hysterectomy; rlq pain Procedure: CT ABDOMEN/PELVIS W/CONTRASTOrder Date: 01/27/2019 10:57 AMOrdering Provider: DR LEXUS CASTREJON ACOSTAClinical Indication: [id number]: Abdominal painComparison: September 30, 2018TECHNIQUE:The abdomen and [...] Dr Silver Benitez MD 01/27/201912:23 PMDictated By: Chante BENITEZ: 01/27/2019 12:23URINALYSIS WITH MICROSCOPIC 2019-01-27 12:10:00 Test Item Value Reference Range Interpretation Comments Color (test code = UCOLR) YELLOW Clarity (test code = UCLAR) CLEAR Glucose (test code = UGLUC) NEGATIVE NEGATIVE N Bilirubin (test code = UBILI) NEGATIVE NEGATIVE N Ketones (test code = UKET) NEGATIVE NEGATIVE N Specific [place] (test code = USPGR) <=1.005 1.005-1.030 A [...] code = UBACT) Trace None Seen,Trace N [id number] 11:49:00 Test Item Value Reference Range Interpretation Comments Lipase (test code = LIPA) 91 U/L 73-393 AMYLASE, [id number] 11:49:00 Test Item Value Reference Range Interpretation Comments Amylase (test code = AMYL) 45 U/L 25-115 STAT LAB CHEM [id number] 11:25:00 Test Item Value Reference Range Interpretation [...] 0.6-1.3 L STAT LAB CBC WITH AUTO [id number] 11:23:00 Test Item Value Reference Range Interpretation [...] IG%) 0.6 % 0.0-0.4 H US PELVIS [id number] 07:55:25h/o complex right ovarian cystsProcedure: Pelvic ultrasound.CLINICAL [...] 0.1 mg/dl 0.0-1.1 IBIL) STAT LAB CHEM [id number] 02:41:00 Test Item Value Reference Range Interpretation [...] 0.6-1.3 L STAT LAB CBC WITH AUTO [id number] 02:39:00 Test Item Value Reference Range Interpretation [...] IG%) 0.5 % 0.0-0.4 H URINALYSIS WITH [id number] 02:37:00 Test Item Value Reference Range Interpretation Comments Color (test code = UCOLR) YELLOW Clarity (test code = UCLAR) CLEAR Glucose (test code = UGLUC) 500 NEGATIVE A Bilirubin (test code = UBILI) NEGATIVE NEGATIVE N Ketones (test code = UKET) TRACE NEGATIVE A Specific [place] (test code = USPGR) >=1.030 1.005-1.030 A [...] = UBACT) 2+ None Seen,Trace A CULTURE, [id number] 07:39:00CULTURE RIGHT ABDOMEN WOUND CARE DEPT Specimen: [...] 09/30/2018 8:28 PMOrdering Provider: DIMAS Haskinsinical Indication: [id number]: Acute chest painComparison: May 13, 2017Findings:Cardiac size [...] By: FARZAD DEWITTDate: 10/01/2018 05:08CT ABDOMEN/PELVIS W/O [id number] 00:42:26NPO 4 hours. Do not withhold medsEXAM:CT [...] 0.5 mg/dl 0.0-1.1 IBIL) STAT LAB CHEM [id number] 21:10:00 Test Item Value Reference Range Interpretation [...] 0.6-1.3 L STAT LAB CBC WITH AUTO [id number] 21:09:00 Test Item Value Reference Range Interpretation [...] = IG%) 0.3 % 0.0-0.4 OVARY W/WO TUBE,SKC-[id number] 12:44:00 RUN DATE: 09/04/18 [facility] PAGE 1 RUN TIME: 1454 Specimen Inquiry RUN USER: INTERFACE -PATIENT: LAUREN BETH [facility] #: [id number] AGE/SX: 33/F ROOM: [facility] RE09/02/18REG DR:Elmer Flores : [birth year] BED: A DIS: 09/03/18 STATUS: DIS [place]y TLOC: SPEC #: [id number] RECD: 09/02/18 STATUS: KWAME GARCIA #: [id number] MELISSA: 09/02/18- SUBM DR: Elmer Flores III ENTERED: 09/03/18 SP TYPE: MUSA PELAYO DR: ORDERED: LEVEL IV CODES: [id number] - OVARY, NOS PROCEDURES: LEVEL IV (Incomplete) TISSUES: OVARY, NOS - RIGHT OVARIAN CYST CLINICAL HISTORY 33 year old,acute pelvic pain (wpd) FINAL DIAGNOSIS Right ovarian cyst, excision: - benign simple cyst of ovary Tissue code 1 CPT code(s): 79706 [facility] 09/04/18 GROSS DESCRIPTION ANATOMIC SOURCE [...] with multiple yellow-orange, centrally hemorrhagic corpora lutea. Proof Sorter sections are submitted as A and B. [...] NORMAL NORMAL code = PLTMR) CHEMISTRY 7 [id number] 14:15:00 Test Item Value Reference Range Interpretation [...] CA) 9.2 mg/dL 8.4-10.2 N CBC W/AUTO [id number] 13:42:00 Test Item Value Reference Range Interpretation [...] NORMAL NORMAL code = PLTMR) US INTRAVAGINAL [id number] 12:35:09Procedure: Pelvic ultrasound.CLINICAL INDICATION: Pelvic pain. Status [...] VELÁZQUEZDate: 09/01/2018 12:28STAT LAB CBC WITH AUTO [id number] 11:31:00 Test Item Value Reference Range Interpretation [...] 09/01/2018 11:31 ONLY AVAILABLE 8A-12MNCT ABDOMEN/PELVIS W/O [id number] 11:11:01MLP C Procedure: CT ABDOMEN/PELVIS W/O CONTRASTOrder Date: 09/01/2018 9:28 AMOrdering Provider: CHIN Guilleninical Indication: [id number]: Abdominal pain. Left lower quadrant painComparison: 12/24/2017TECHNIQUE:CT [...] AMDictatedBy: GLORY BENITEZKDate: 09/01/2018 11:04STAT LAB CHEM [id number] 10:26:00 Test Item Value Reference Range Interpretation [...] L ONLY AVAILABLE 8A-12MNSTAT LAB URINALYSIS WITHOUT [id number] 09:59:00 Test Item Value Reference Range Interpretation Comments Color (test code = UCOLR) Yellow Lt. Yellow A Clarity (test code = UCLAR) Clear Glucose (test code = UGLUC) NEGATIVE Negative A Bilirubin (test code = UBILI) NEGATIVE Negative A Ketones (test code = UKET) NEGATIVE Negative A Specific [place] (test code = USPGR) 1.015 1.005-1.030 A Blood (test code = UBLD) NEGATIVE Negative A PH (test code = UPH) 7.0 4.5-8.0 A Protein (test code = UPROT) NEGATIVE Negative A Urobilinogen (test code = U UROB) 0.2 >0.2 N Nitrite (test code = UNITR) NEGATIVE Negative A Leukocyte Esterase (test code = NEGATIVE Negative A ULEUK) ONLY AVAILABLE 8A-12MNUS INTRAVAGINAL [id number] 13:26:23Procedure: Pelvic ultrasound.CLINICAL INDICATION: PELVIC PAIN: Pain-Pelvic. [...] VELÁZQUEZDate: 05/13/2018 13:20STAT LAB CBC WITH AUTO [id number] 12:22:00 Test Item Value Reference Range Interpretation [...] 0.0-0.4 IG%) STAT LAB CBC WITH AUTO [id number] 11:54:00 Test Item Value Reference Range Interpretation [...] IG%) ONLY AVAILABLE 8A-12MNSTAT LAB URINALYSIS WITHOUT [id number] 11:25:00 Test Item Value Reference Range Interpretation Comments Color (test code = UCOLR) Yellow Lt. Yellow A Clarity (test code = UCLAR) Clear Glucose (test code = UGLUC) NEGATIVE Negative A Bilirubin (test code = UBILI) NEGATIVE Negative A Ketones (test code = UKET) NEGATIVE Negative A Specific [place] (test code = USPGR) 1.020 1.005-1.030 A Blood (test code = UBLD) NEGATIVE Negative A PH (test code = UPH) 7.0 4.5-8.0 A Protein (test code = UPROT) NEGATIVE Negative A Urobilinogen (test code = U UROB) 0.2 >0.2 N Nitrite (test code = UNITR) NEGATIVE Negative A Leukocyte Esterase (test code = NEGATIVE Negative A ULEUK) ONLY AVAILABLE 8A-12[facility] LAB , [id number] 11:25:00 Test Item Value Reference Range Interpretation Comments (Urine) (test code = Negative PREGU) ONLY AVAILABLE 8A-12[facility] [id number] [id number] 11:23:00 Test Item Value Reference Range Interpretation [...] mg/dl 0.6-1.3 L ONLY AVAILABLE 8A-12MNUS INTRAVAGINAL [id number] 12:50:53Procedure: Pelvic ultrasound.CLINICAL INDICATION: Right adnexal mass. [...] PMDictated By: WILEY VELÁZQUEZDate: 12/24/2017 12:50URINALYSIS WITH [id number] 10:22:00 Test Item Value Reference Range Interpretation Comments Color (test code = UCOLR) Yellow Clarity (test code = UCLAR) Clear Glucose (test code = UGLUC) NEGATIVE NEGATIVE N Bilirubin (test code = UBILI) NEGATIVE NEGATIVE N Ketones (test code = UKET) NEGATIVE NEGATIVE N Specific [place] (test code = USPGR) 1.025 1.005-1.030 A [...] = UBACT) Trace None Seen,Trace N LIPASE, [id number] 10:05:00 Test Item Value Reference Range Interpretation Comments Lipase (test code = LIPA) 40 U/L 8-223 [id number] 10:05:00 Test Item Value Reference Range Interpretation [...] ( 4 - SerumAlbumin)] EGFR if >60 Uz[place] (test code mL/min/1.73m\\ = EGFRAA) S\\2 EGFR if Non- >60 Estimate d Glomerular Uzbek (test code mL/min/1.73m\\ Filtrat ion Rate (eGFR) [...] 12/24/20179:32 AMDictated By: WILEY VELÁZQUEZDate: 12/24/2017 09:38[facility] WITH AUTO [id number] 09:26:00 Test Item Value Reference Range Interpretation [...] code = UKET) NEGATIVE NEGATIVE N Specific [place] (test code = 1.020 1.005-1.030 A USPGR) [...] UBACT) None Seen None Seen,Trace N er [id number] 03:07:00 Test Item Value Reference Range Interpretation [...] ( 4 - SerumAlbumin)] EGFR if >60 [place] (test code mL/min/1.73m\\ = EGFRAA) S\\2 EGFR if Non- >60 Estimate d Glomerular [place] (test code mL/min/1.73m\\ Filtrat ion Rate (eGFR) [...] of c hronic kidney failure. er 16LIPASE, [id number] 03:07:00 Test Item Value Reference Range Interpretation Comments Lipase (test code = LIPA) 61 U/L 8-223 er 16CBC WITH AUTO [id number] 03:05:00 Test Item Value Reference Range Interpretation [...] 0.0-0.4 IG%) er 16XR CHEST 2 PA [id number] 19:56:04Procedure: XR CHEST 2 PA LATERALExam date: 05/13/2017 3:53 PMOrdering Provider: DR ASA BLOOMClinical Indication: fatigue, Chest painComparison: March 15, 2016Findings:Cardiomediastinal silhouette is within normal limits.The lungs are clear.No pleural effusion or pneumothorax. Osseous structures are nonacute.No evidence of active tuberculosis.Impression:No acute cardiopulmonary process.This final report was electronically signed by Dr Wiley Velázquez MD 05/13/20177:49 PMDictated By: WILEY VELÁZQUEZDate: 05/13/2017 19:[id number] 16:53:00 Test Item Value Reference Range Interpretation [...] exist (test code = for corrected s jieson CALCCORR) calcium results , each yielding differ ent values. This co rrected result was base d on the formula: Co rrected Calcium = Serum Calcium + [0.8 * ( 4 - SerumAlbumin)] EGFR if >60 [place] (test code mL/min/1.73m\\ = EGFRAA) S\\2 EGFR if Non- >60 Estimate d Glomerular Uzbek (test code mL/min/1.73m\\ Filtrat ion Rate (eGFR) [...] NOTED ON THE RE PORT. URINALYSIS WITH [id number] 18:25:00 Test Item Value Reference Range Interpretation Comments Color (test code = UCOLR) YELLOW Clarity (test code = UCLAR) CLEAR Glucose (test code = UGLUC) NEGATIVE NEGATIVE N Bilirubin (test code = UBILI) NEGATIVE NEGATIVE N Ketones (test code = UKET) NEGATIVE NEGATIVE N Specific [place] (test code = 1.025 1.005-1.030 A USPGR) [...] (test code = 0.1 mg/dl 0.0-1.1 IBIL) [id number] 18:21:00 Test Item Value Reference Range Interpretation [...] mg/dl 8.4-10.2 = CALC) EGFR if >60 Uzbek (test code mL/min/1.73m\\ = EGFRAA) S\\2 EGFR if Non- >60 Estimate d Glomerular Uzbek (test code mL/min/1.73m\\ Filtrat ion Rate (eGFR) [...] c hronic kidney failure. CBC WITH AUTO [id number] 18:04:00 Test Item Value Reference Range Interpretation [...]
[2022-04-11 23:59] LABS: Urine Blood Trace-intact (Negative); Urine Glucose Negative (Negative); Urine Protein Negative (Negative); Urine Specific Gravity >=1.030 (1.005-1.030); Urine pH 5.5 (5.0-7.0)
[2022-04-12 00:19] LABS: Barbiturates NEGATIVE (NEGATIVE); Benzodiazepines NEGATIVE (NEGATIVE); Cocaine NEGATIVE (NEGATIVE); METHAMPHETAM NEGATIVE (NEGATIVE); Methadone NEGATIVE (NEGATIVE); Opiates NEGATIVE (NEGATIVE); Phencyclidine NEGATIVE (NEGATIVE); THC Cannibis NEGATIVE (NEGATIVE)
[2022-04-12] MEDS ORDERED: HYDROMORPHONE HCL 1 MG/ML INJ ONE ×2 (00:54→02:44)
[2022-04-12] MEDS ORDERED: PROMETHAZINE INJ 25 MG/ML AMP ONE (00:54)
[2022-04-12] MEDS ORDERED: NA CHLORIDE 0.9% 1,000 ML ONE (00:55)
[2022-04-12] MEDS ORDERED: FAMOTIDINE 20 MG/2 ML VIAL IV ONE (00:55)
[2022-04-12 01:14] LABS: Absolute Lymphocytes (CBC) 2.6 K/uL (0.7-4.9); Hematocrit 36.8 % (36.0-45.0); Lymphocytes % 33.7 % (15.3-44.8); MPV 7.1 fL (7.6-11.3); RBC Red Blood Cell Count 4.18 M/uL (3.86-4.86)
[2022-04-12 01:15] LABS: Protime INR 0.91
[2022-04-12 01:49] LABS: ALT/SGPT 19 U/L (12-78); AST/SGOT 15 U/L (15-37); Albumin 3.1 g/dL (3.4-5.0); Alkaline Phosphatase 92 U/L (45-117); BUN Blood Urea Nitrogen 15 mg/dL (7-18); Bicarbonate 24 mmol/L (21-32); Glomerular Filtration Rate 103 ml/min (=/>90); Glucose Level 113 mg/dL (74-106); Lipase 137 U/L (73-393); Magnesium 1.9 mg/dL (1.8-2.4); NT PRO-BNP 30 pg/mL (<125); Potassium 3.8 mmol/L (3.5-5.1); Sodium Level 140 mmol/L (136-145); Troponin High Sensitivity 7.2 pg/mL (<58.9)
[2022-04-12 01:51] LABS: Bilirubin Direct < 0.1 mg/dL (0-0.2); Bilirubin Total < 0.1 mg/dL (0.2-1.0)
[2022-04-12] MEDS ORDERED: MEPERIDINE HCL 25 MG/ML SYR ONE ×2 (03:05→03:33)
[2022-04-12] MEDS ORDERED: ONDANSETRON 4 MG/2 ML VIAL ONE (03:05)
[2022-04-12] MEDS ORDERED: TAMSULOSIN 0.4 MG SR CAP ONE (03:46)
--- NOTE | 2022-04-12 03:46 | EDPHYS ---
Physician Documentation [facility] Name: Hong Pace Age: 36 yrs Sex: Female : 1985 Arrival Date: 04/11/2022 Time: 22:49 Bed 4 Private MD: JOAQUIN Physician Cole Disla HPI: 04/12 00:05 This 36 yrs old Female presents to ER via Ambulatory with complaints of wayne Abdominal Pain, Vomiting. 00:05 The patient presents to the emergency department with nausea, vomiting, that is wayne intermittent. Onset: The symptoms/episode began/occurred 1 day(s) ago. Possible causes: unknown, flare up of bowel problem. The symptoms are aggravated by nothing. The symptoms are alleviated by nothing. Associated signs and symptoms: Pertinent positives: abdominal pain, nausea, vomiting. Severity of symptoms: At their worst the symptoms were moderate in the emergency department the symptoms are unchanged. The patient has not experienced similar symptoms in the past. 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 - Social history:: Smoking status: Patient reports the use of cigarette tobacco products, smokes one-half pack cigarettes per day. ROS: 04/12 00:12 Constitutional: Negative for fever, chills, and weight loss, Eyes: Negative for injury, wayne pain, redness, and discharge, ENT: Negative for injury, pain, and discharge, Neck: Negative for injury, pain, and swelling, Cardiovascular: Negative for chest pain, palpitations, and edema, Respiratory: Negative for shortness of breath, cough, wheezing, and pleuritic chest pain, Back: Negative for injury and pain, : Negative for injury, bleeding, discharge, and swelling, MS/Extremity: Negative for injury and deformity, Skin: Negative for injury, rash, and discoloration, Neuro: Negative for headache, weakness, numbness, tingling, and seizure, Psych: Negative for depression, anxiety, suicide ideation, homicidal ideation, and hallucinations, Allergy/Immunology: Negative for hives, rash, and allergies, Endocrine: Negative for neck swelling, polydipsia, polyuria, polyphagia, and marked weight changes, Hematologic/Lymphatic: Negative for swollen nodes, abnormal bleeding, and unusual bruising. Abdomen/GI: Positive for abdominal pain, nausea and vomiting, of the right upper quadrant, left upper quadrant, right lower quadrant and left lower quadrant. Exam: 00:12 Constitutional: This is a well developed, well nourished patient who is awake, alert, wayne and in no acute distress. Head/Face: Normocephalic, atraumatic. Eyes: Pupils equal round and reactive to light, extra-ocular motions intact. Lids and lashes normal. Conjunctiva and sclera are non-icteric and not injected. Cornea within normal limits. Periorbital areas with no swelling, redness, or edema. ENT: Nares patent. No nasal discharge, no septal abnormalities noted. Tympanic membranes are normal and external auditory canals are clear. Oropharynx with no redness, swelling, or masses, exudates, or evidence of obstruction, uvula midline. Mucous membranes moist. Neck: Trachea midline, no thyromegaly or masses palpated, and no cervical lymphadenopathy. Supple, full range of motion without nuchal rigidity, or vertebral point tenderness. No Meningismus. Chest/axilla: Normal chest wall appearance and motion. Nontender with no deformity. No lesions are appreciated. Cardiovascular: Regular rate and rhythm with a normal S1 and S2. No gallops, murmurs, or rubs. Normal PMI, no JVD. No pulse deficits. Respiratory: Lungs have equal breath sounds bilaterally, clear to auscultation and percussion. No rales, rhonchi or wheezes noted. No increased work of breathing, no retractions or nasal flaring. Back: No spinal tenderness. No costovertebral tenderness. Full range of motion. Skin: Warm, dry with normal turgor. Normal color with no rashes, no lesions, and no evidence of cellulitis. MS/ Extremity: Pulses equal, no cyanosis. Neurovascular intact. Full, normal range of motion. Neuro: Awake and alert, GCS 15, oriented to person, place, time, and situation. Cranial nerves II-XII grossly intact. Motor strength 5/5 in all extremities. Sensory grossly intact. Cerebellar exam normal. Normal gait. Psych: Awake, alert, with orientation to person, place and time. Behavior, mood, and affect are within normal limits. 00:12 Abdomen/GI: Inspection: abdomen appears normal, Bowel sounds: active, Palpation: mild abdominal tenderness, moderate abdominal tenderness, in the right lower quadrant and left lower quadrant, Liver: no appreciated palpable abnormalities, Hernia: not appreciated. 02:49 ECG was reviewed by the Attending Physician. [facility] Vital Signs: 04/11 22:54 BP 143 / 90; Pulse 150; Resp 20; Temp 98.7; Pulse Ox 100% ; Weight 108.86 kg; Height 5 kb3 ft. 4 in. (162.56 cm); Pain /10; 04/12 01:22 BP 135 / 98; Pulse 83; Resp 19 S; Pulse Ox 99% on R/A; as6 02:59 BP 129 / 77; Pulse 84; Resp 13 S; Pulse Ox 98% on R/A; as6 03:36 BP 144 / 88; Pulse 97; Resp 08; Pulse Ox 96% on R/A; tw5 04/11 22:54 Body Mass Index 41.20 (108.86 kg, 162.56 cm) kb3 Procedures: 00:48 Peripheral line: by aseptic technique a peripheral line was placed in the right upper la1 arm 18g 10cm Midline inserted via dynamic US guidance. MDM: 04/11 23:20 Patient medically screened. [facility] 04/12 02:44 Differential diagnosis: Nonspecific abd pain, gastritis, pancreatitis, appendicitis, wayne diverticulitis, viral gastroenteritis, gastroenteritis. Data reviewed: vital signs, nurses notes, lab test result(s), EKG, radiologic studies, CT scan, plain films. Data interpreted: media monitor: rate is 83 beats/min, rhythm is regular, Pulse oximetry: on room air is 99 %. Test interpretation: by ED physician or midlevel provider: ECG, plain radiologic studies. Counseling: I had a detailed discussion with the patient and/or guardian regarding: the historical points, exam findings, and any diagnostic results supporting the discharge/admit diagnosis, lab results, radiology results, the need for outpatient follow up, for definitive care, a general surgeon, an OB/Gyne specialist. 04/11 23:36 Order name: Basic Metabolic Panel [facility] 04/11 23:36 Order name: CBC with Diff [facility] 04/11 23:36 Order name: LFT's [facility] 04/11 23:36 Order name: Magnesium [facility] 04/11 23:36 Order name: NT PRO-BNP [facility] 04/11 23:36 Order name: PT-INR [facility] 04/11 23:36 Order name: Troponin HS [facility] 04/11 23:36 Order name: Lipase [facility] 04/11 23:37 Order name: UDS [facility] 04/11 23:37 Order name: Asprin [facility] 04/11 23:37 Order name: Tylenol Level [facility] 04/11 23:59 Order name: Urine Dipstick-Ancillary; Complete Time: 00:03 [facility] [place] 04/12 00:19 Order name: Urine Drug Screen; Complete Time: 01:18 EDNM 04/12 01:15 Order name: CBC with Automated Diff; Complete Time: 01:18 EDNM 04/11 23:36 Order name: XRAY Chest (1 view) [facility] 04/11 23:36 Order name: CT Abd/Pelvis - IV Contrast Only [facility] 04/12 01:15 Order name: Protime (+INR); Complete Time: 01:18 EDNM 04/12 01:49 Order name: Salicylates Level; Complete Time: 02:42 EDNM 04/12 01:51 Order name: Basic Metabolic Panel; Complete Time: 02:42 EDNM 04/12 01:51 Order name: Liver (Hepatic) Function; Complete Time: 02:42 EDNM 04/12 01:51 Order name: Troponin High Sensitivity; Complete Time: 02:42 EDNM 04/12 01:51 Order name: NT PRO-BNP; Complete Time: 02:42 EDNM 04/12 01:51 Order name: Acetaminophen Level; Complete Time: 02:42 EDNM 04/12 01:51 Order name: Magnesium; Complete Time: 02:42 [facility] [place] 04/12 01:51 Order name: Lipase; Complete Time: 02:42 [facility] [place] 04/11 23:36 Order name: EKG; Complete Time: 23:38 [facility] 04/11 23:36 Order name: Cardiac monitoring; Complete Time: 01:22 [facility] 04/11 23:36 Order name: EKG - Nurse/Tech; Complete Time: [facility] 04/11 23:36 Order name: IV Saline Lock; Complete Time: [facility] 04/11 23:36 Order name: Labs collected and sent; Complete Time: [facility] 04/11 23:36 Order name: O2 Per Protocol; Complete Time: [facility] 04/11 23:36 Order name: O2 Sat Monitoring; Complete Time: [facility] EC:49 Rate is 83 beats/min. Rhythm is regular. QRS [place] is Normal. [place] interval is normal. QRS wayne interval is normal. QT interval is normal. No Q waves. T waves are Normal. No ST changes noted. Clinical impression: Normal ECG and No evidence of ischemia. Interpreted by me. Reviewed by me. Administered Medications: : Drug: NS 0.9% 1000 ml Route: IV; Rate: 1 bolus; Site: right upper arm; as6 01:22 Drug: Dilaudid (HYDROmorphone) 1 mg Route: IVP; Site: right upper arm; as6 01:22 Drug: Phenergan (promethazine) 12.5 mg Route: IVP; Site: right upper arm; as6 01:22 Drug: Pepcid (famotidine) 20 mg Route: IVP; Site: right upper arm; as6 02:47 Drug: Dilaudid (HYDROmorphone) 1 mg Route: IVP; Site: right upper arm; as6 03:08 Drug: Zofran (Ondansetron) 4 mg Route: IVP; Site: right upper arm; as6 03:09 Drug: Demerol (meperidine) 25 mg Route: IVP; Site: right upper arm; as6 03:40 Drug: Demerol (meperidine) 25 mg Route: IVP; Site: right upper arm; tw5 03:49 Follow up: Response: No adverse reaction; Pain is decreased; RASS: Alert and Calm (0) tw5 03:48 Drug: Flomax (tamsulosin) 0.4 mg Route: PO; tw5 Disposition Summary: 04/12/22 03:45 Discharge Ordered Location: Home wayne Problem: new wayne Symptoms: have improved wayne Condition: Stable wayne Diagnosis - Abdominal pain, Generalized wayne - Abdominal tenderness wayne - Vomiting wayne - Calculus of ureter - NO HYDRONEPHROSIS wayne Followup: wayne - With: Private Physician - When: 2 - 3 days - Reason: Recheck today's complaints, Continuance of care, Re-evaluation by your physician Followup: wayne - With: - When: 2 - 3 days - Reason: Recheck today's complaints, Re-evaluation by your physician Followup: wayne - With: - When: 2 - 3 days - Reason: Recheck today's complaints, Continuance of care, Re-evaluation by your physician Followup: wayne - With: Jaylon Dinero MD - When: 2 - 3 days - Reason: Recheck today's complaints, Re-evaluation by your physician Discharge Instructions: - Discharge Summary Sheet wayne - Abdominal Pain, Adult wayne - Abdominal Pain, Adult, [id number] wayne - Vomiting, Adult [facility] Forms: - Medication Reconciliation Form [facility] - Thank You Letter [facility] - Antibiotic Education wyane - Prescription Opioid Use [facility] Prescriptions: - tamsulosin 0.4 mg Oral capsule - take 1 capsule by ORAL route once daily 1/2 hour following the same meal each [facility] day; 30 capsule; Refills: 0, Product Selection Permitted - Zofran 4 mg Oral Tablet - take 1 tablet by ORAL route every 12 hours As needed; 20 tablet; Refills: 0, [facility] Product Selection Permitted - promethazine 25 mg Oral Tablet - take 1 tablet by ORAL route every 6 hours As needed; 15 tablet; Refills: 0, [facility] Product Selection Permitted - dicyclomine 20 mg Oral Tablet - take 1 tablet by ORAL route 4 times per day; 28 tablet; Refills: 0, Product [facility] Selection Permitted - Tylenol-Codeine #3 300 mg-30 mg Oral - take 2 tablet by ORAL route every 6 hours; 20 tablet; Refills: 0, Product [facility] Selection Permitted Signatures: Dispatcher [employer] Cole Juan MD MD cha Attema, Lee, PLANNER SCHEDULER-C PLANNER SCHEDULER-Cla1 Edith Myers tw5 Uday Smith, [place] RN as6 Lisbeth Hills RN RN kb3
--- NOTE | 2022-04-12 03:46 | ER ---
Nurse's Notes [facility] Name: Hong Pace Age: 36 yrs Sex: Female : 1985 Arrival Date: 04/11/2022 Time: 22:49 Bed 4 Private MD: Diagnosis: Abdominal pain, Generalized;Abdominal tenderness;Vomiting;Calculus of ureter-NO HYDRONEPHROSIS Presentation: 04/11 22:54 Chief complaint: Patient states: Pt reports LLQ pain that began around 1800 tonight kb3 with associated N/V. Reports this episode is similar to multiple previous episodes of abdominal pain. Coronavirus screen: Vaccine status: Patient reports being unvaccinated. Client denies travel out of the [place] in the last 14 days. Ebola Screen: Patient negative for fever greater than or equal to 101.5 degrees Fahrenheit, and additional compatible Ebola Virus Disease symptoms Patient denies exposure to infectious person. Patient denies travel to an Ebola-affected area in the 21 days before illness onset. No symptoms or risks identified at this time. Initial Sepsis Screen: Does the patient meet any 2 criteria? No. Patient's initial sepsis screen is negative. Does the patient have a suspected source of infection? No. Patient's initial sepsis screen is negative. Risk Assessment: Do you want to hurt yourself or someone else? Patient reports no desire to harm self or others. Onset of symptoms was April 11, 2022 at 18:00. 22:54 Method Of Arrival: Ambulatory kb3 22:54 Acuity: [place] 3 kb3 Triage Assessment: 22:56 General: Appears distressed, uncomfortable, Behavior is calm, cooperative, anxious. kb3 Pain: Complains of pain in left lower quadrant Pain does not radiate. Pain currently is 9 out of 10 on a pain scale. Quality of pain is described as sharp, stabbing, Pain began 4 hours ago. GI: Reports lower abdominal pain, nausea, vomiting. 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 - Social history:: Smoking status: Patient reports the use of cigarette tobacco products, smokes one-half pack cigarettes per day. Screenin/13 03:38 Abuse screen: Denies threats or abuse. Denies injuries from another. Nutritional tw5 screening: No deficits noted. Tuberculosis screening: No symptoms or risk factors identified. Fall Risk None identified. Assessment: 02:45 General: "isn't he going to give me something else for pain? Dilaudid doesn't work". as6 03:00 General: "Can you please pull this IV out of my arm. I'm ready to go. I don't want to as6 be here anymore." provider notified . 03:00 General: pt has removed vital sign equipment . as6 03:36 Pain: Complains of pain in right lower quadrant and left lower quadrant Pain currently tw5 is 7 out of 10 on a pain scale. Quality of pain is described as sharp. Neuro: No deficits noted. Respiratory: No deficits noted. GI: Reports nausea, vomiting. 04:02 GI: tw5 04:03 GI: tw5 Vital Signs: 04/11 22:54 BP 143 / 90; Pulse 150; Resp 20; Temp 98.7; Pulse Ox 100% ; Weight 108.86 kg; Height 5 kb3 ft. 4 in. (162.56 cm); Pain /10; 04/12 01:22 BP 135 / 98; Pulse 83; Resp 19 S; Pulse Ox 99% on R/A; as6 02:59 BP 129 / 77; Pulse 84; Resp 13 S; Pulse Ox 98% on R/A; as6 03:36 BP 144 / 88; Pulse 97; Resp 08; Pulse Ox 96% on R/A; tw5 04/11 22:54 Body Mass Index 41.20 (108.86 kg, 162.56 cm) kb3 ED Course: 04/11 22:49 Patient arrived in ED. dt4 22:56 Triage completed. kb3 22:56 Arm band placed on right wrist. kb3 23:13 Uday Smith, [place] is Primary Nurse. as6 23:20 Cole Disla MD is Attending Physician. wayne 23:59 UDS Sent. as6 04/12 00:52 Accessed power glide midline 18g 10cm to right upper arm. Done my [facility]. as6 03:38 Patient has correct armband on for positive identification. Bed in low position. Call tw5 light in reach. Side rails up X 1. 03:38 No provider procedures requiring assistance completed. tw5 03:44 Renetta Soria MD is Referral Physician. wayne 03:44 David Meneses MD is Referral Physician. wayne 03:44 Referral Physician role handed off by Renetta Soria MD wayne 03:44 Referral Physician role handed off by David Meneses MD wayne 03:44 Jaylon Dinero MD is Referral Physician. wayne 04:03 IV discontinued, intact, bleeding controlled, No redness/swelling at site. Pressure tw5 dressing applied. 12:39 XRAY Chest (1 view) In Process Unspecified. EDMS 12:39 CT Abd/Pelvis - IV Contrast Only In Process Unspecified. EDMS Administered Medications: 01:21 Drug: NS 0.9% 1000 ml Route: IV; Rate: 1 bolus; Site: right upper arm; as6 01:22 Drug: Dilaudid (HYDROmorphone) 1 mg Route: IVP; Site: right upper arm; as6 01:22 Drug: Phenergan (promethazine) 12.5 mg Route: IVP; Site: right upper arm; as6 01:22 Drug: Pepcid (famotidine) 20 mg Route: IVP; Site: right upper arm; as6 02:47 Drug: Dilaudid (HYDROmorphone) 1 mg Route: IVP; Site: right upper arm; as6 03:08 Drug: Zofran (Ondansetron) 4 mg Route: IVP; Site: right upper arm; as6 03:09 Drug: Demerol (meperidine) 25 mg Route: IVP; Site: right upper arm; as6 03:40 Drug: Demerol (meperidine) 25 mg Route: IVP; Site: right upper arm; tw5 03:49 Follow up: Response: No adverse reaction; Pain is decreased; RASS: Alert and Calm (0) 03:48 Drug: Flomax (tamsulosin) 0.4 mg Route: PO; Outcome: 03:45 Discharge ordered by . wayne 04:02 Discharged to home ambulatory. 04:02 Condition: good 04:02 Discharge instructions given to patient, Instructed on discharge instructions, follow up and referral plans. medication usage, Demonstrated understanding of instructions, follow-up care, medications, Prescriptions given X 4. 04:05 Patient left the ED. wayne Signatures: Dispatcher [employer] EDIN Cole Disla MD MD cha Wood, Tiffany tw5 Uday Smith RN RN as6 Lisbeth Hills RN RN kb3 Lorena Joseph dt4
[2022-04-12 04:15] VITALS: TEMP 98.7
[2022-04-12 04:19] VITALS: BP 144/88; O2SAT 96
--- NOTE | 2022-04-12 07:35 | EKG ---
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
--- NOTE | 2022-04-12 15:01 | RAD REPORT ---
EXAM DESCRIPTION: CT - Abdomen Pelvis W Contrast - 04/12/2022 2:12 am CLINICAL HISTORY: The patient is 36 years old and is Female; ABDOMINAL PAIN TECHNIQUE: Axial computed tomography images of the abdomen and pelvis with intravenous contrast. S agittal and coronal reformatted images were created and reviewed. This CT exam was performed using one or more of the following dose reduction techniques: automated exposure control, adjustment of t he mA and/or kV according to patient size, and/or use of iterative reconstruction technique. COMPARISON: 03/11/2022 CT abdomen pelvis without contrast FINDINGS: LUNG BASES: Lung bases are well-aerated and clear bilaterally. ABDOMEN: LIVER: Unremarkable. No mass. GALLBLADDER AND BILE DUCTS: Cholecystectomy. No ductal dilation. PANCREAS: Unremarkable. No mass. No ductal dilation. SPLEEN: Unremarkable. No splenomegaly. ADRENALS: Unremarkable. No mass. KIDNEYS AND URETERS: 3 mm stone demonstrated within the mid to distal right ureter at the approxima te S2-S3 intervertebral level (series CT #501, image 70/106), with no appreciable ipsilateral hydrone phrosis or ureteral ectasia. Minimal periureteral stranding demonstrated at this level. Nonobstructive intrarenal stone in the inferior pole the right kidney. STOMACH AND BOWEL: Postsurgical changes of the proximal greater curvature of the stomach. No obstruction. No mucosal thickening. PELVIS: APPENDIX: An appendix is not definitely identified, but there are no pericecal inflammatory changes to suggest acute appendicitis. BLADDER: Unremarkable. No mass. REPRODUCTIVE: Unremarkable as visualized. ABDOMEN and PELVIS: INTRAPERITONEAL SPACE: Unremarkable. No free air. No significant fluid collection. BONES/JOINTS: No acute fracture. No dislocation. SOFT TISSUES: Tiny fat-containing umbilical hernia. VASCULATURE: Unremarkable. No abdominal aortic aneurysm. LYMPH NODES: Unremarkable. No enlarged lymph nodes. IMPRESSION: 3 mm stone demonstrated within the mid to distal right ureter at the approximate S2-S3 i ntervertebral level (series CT #501, image 70/106), with minimal periureteral stranding at this level , but no proximal ureteral ectasia or hydronephrosis to suggest obstruction. Electronically signed by: Fede Lozada MD 04/12/2022 3:19 AM CDT Due to temporary technical issues with the PACS/Fluency reporting system, reports are being signed by the in house radiologists without review as a courtesy to insure prompt reporting. The interpreting radiologist is fully responsible for the content of the report.
--- NOTE | 2022-04-12 15:02 | RAD REPORT ---
EXAM DESCRIPTION: RAD - Chest Single View - 04/12/2022 12:10 am CLINICAL HISTORY: 36 years Female, Abdominal Distension COMPARISON: None. TECHNIQUE: Single portable x-ray view of the chest performed on 04/11/2022 at 11:56 PM FINDINGS: The lungs are well expanded and are clear. There is no evidence of a pneumothorax. The cardiac silhouette is normal in size and configuration. The mediastinal contours are normal. No acute osseous abnormality is identified. No acute soft tissue abnormalities are seen. Lines and tubes: None. Free air: None IMPRESSION: No evidence of acute intrathoracic disease. Electronically signed by: Rebekah Munoz DO 04/12/2022 1:20 AM CDT Due to temporary technical issues with the PACS/Fluency reporting system, reports are being signed by the in house radiologists without review as a courtesy to insure prompt reporting. The interpreting radiologist is fully responsible for the content of the report.
== END 2022-04-12 04:05 | disposition home or self-care (01) ==
LOC: ER 22:45
DX: N20.1 Calculus of ureter (principal); R10.84 Generalized abdominal pain; E89.0 Postprocedural hypothyroidism; F17.210 Nicotine dependence, cigarettes, uncomplicated; Z85.820 Personal history of malignant melanoma of skin; Z90.49 Acquired absence of other specified parts of digestive tract; Z90.710 Acquired absence of both cervix and uterus; Z90.721 Acquired absence of ovaries, unilateral
CPT/HCPCS: 36415; 71045; 74177; 80048; 80076; 80307; 80329; 81003; 83690; 83735; 83880; 84484; 85025; 85610; 93005; 96374; 96375; 99284; J1170; J2175; J2405; J2550; J7030; Q9967

== ENCOUNTER 2022-04-20 13:17 | Emergency (ER) | payer SELFPAY ==
--- OUTSIDE RECORDS SUMMARY | 2022-04-20 13:19 | XMS REPORT | Clinical Summary ---
:1985 Author Organization [facility] MD [facility] Address [address] [place] [address] Care Team Providers Name Role Phone Keila Valentine MD Primary Care Provider Navi Arango CAPACITY MANAGEMENT SPECIALIST Unavailable Allergies Active Allergy Reactions Severity Noted [...] malignant melanoma of skin 10/26/2021 Travel after 04/20/2021 Immunizations Name Administration Dates Next Due Influenza [...] OVARIAN CYST SURGERY 08/29/2018 - Right 09/28/2018 MI EXC SKIN MALIG 0.6-1 CM 09/23/2018 Abdomen/Right Proce dure: EXCISION OF TRUNK,ARM,LEG MALIGNANT LESION OF TRUNK, right epi gastric; Surgeon: Nicolasa Valentine MD; Location: [facility] OR; Service: SURG ON C - [...] Office Visit Dermatology Lisbeth Shannon M D [address] [place], [place] [address] (Wo rk) Health Maintenance Due Date Last Done Comments COVID-19 Vaccination (#1) 01/11/1987 Results Not on fileafter 04/20/2021 Advance Directives Code Status Date Activated Date Inactivated Comments Full Code 10/04/2018 8:21 PM 10/08/2018 5:55 PM Full Code 09/23/2018 1:48 PM 09/23/2018 6:55 PM Care Teams Laboratory Inspector Relationship Specialty Start Date End Date Keila Valentine MD PCP - General Surgical Oncology 08/26/18 [address] [place] [address] Navi Arango FNP PCP - External Primary Family Practice 09/08/18 [address] [place] [address]
--- OUTSIDE RECORDS SUMMARY | 2022-04-20 13:32 | XMS REPORT | Continuity of Care Document ---
:1985 Author Organization [facility] t Address [address] [place] [address] Care Team Providers Name Role Phone Keila Valentine MD Primary Care Physician Josué Arango Attending Clinician Unavailable Trice Strickland Attending Clinician TRICE HARRIS Attending Clinician Unavailable Ameena Dupree Attending Clinician AMEENA CASTANEDA Attending Clinician Unavailable Praveen Blas MD Attending Clinician EKTA BERMUDEZ Attending Clinician Unavailable PATRICK CARRANZA Attending Clinician Unavailable Olga Clements Attending Clinician Unavailable LEANNE HANNAH Attending Clinician Unavailable Leanne De Anda S Attending Clinician SHARA GRIMM Attending Clinician Unavailable Andie LEGER, Eve Whiting Attending Clinician Unavailable Patrick Schumacher Attending Clinician Doctor Unassigned, [place] Attending Clinician Unavailable SETH DYKES Attending Clinician Unavailable REHAN COTTON Attending Clinician Unavailable Viktoriya Wright RN Attending Clinician JUAN MENSAH Attending Clinician Unavailable MR SKYE MURILLO Attending Clinician Unavailable Tangela Perez Attending Clinician [...] Physician, No Primary or Family Admitting Clinician UnavailLEANNE Chino Admitting Clinician Unavailable SETH DYKES Admitting Clinician Unavailable REHAN COTTON Admitting Clinician Unavailable JUAN MENSAH Admitting Clinician Unavailable MR CHIDI SKYE Admitting Clinician Unavailable DO WYATT SOTOMAYOR Admitting [...] Number Effective Date Expiration Date S ramakrishna [id number] 1958 00:00:00 MEDI-SHARE C1 [id number] [facility] MEDI-SHARE C1 [id number] [facility] [place] [id number] [facility] [id number] 1958 00:00:00 [place] [id number] [facility] PHCS GENERIC [id number] 2018 00:00:00 Problems Condition Condition Condition Status [...] 00 note examinatimorena examinatimorena might be Gian payton different n from [...] l (LUF/LI V/SA) Anxiety Anxiety Problem Active [facility] (LUF/LI V/SA) No known No known Disease Unive rs active active ity of problems problems [facility] [id number] Endometrio Problem Active [facility] Allergies, Adverse Reactions, Alerts Allergy Allergy Status Severity Reaction(s) Onset Inactive Treating Comm ents Source Name Type Date Date Clinician ketorola DA Active U rash [facility] [place] 00:[facility] d 00 [facility] KETOROLA DRUG Active Low Rash 2020-07 Univers C INGREDI 2- ity of 00:00: [place] [address] [place] [address] Ketorola Propensi Active Rash 2020-07 Univer s c ty to 2-22 ity of adverse 00:00: [place] reaction 00 [facility] [place]ola DA Active [place] [facility] 9[facility]10 [facility] [place] ketorola DA Active U rash [facility] 03-24 [place] 00:00: d [facility] ketorola DA Active U [facility] 03-24 [place] 00:00: d 00 [facility] [place] Drug Active Itching 2010- Univers c Allergy 1-19 ity of 00:00: [place] 00 MD [facility] 0 Drug Active Unknown Common allergy [facility] Family History Family Member Diagnosis Comments Start Date Stop Date Source Natural mother -Breast cancer [facility] [place] [facility] Social History Social Habit Start Date Stop Date Quantity Comments Source History of Tobacco [facility] - Use [facility] Exposure to 2022-02-09 2022-02-19 Not sure University SARS-CoV-2 (event) 00:00:00 09:20:00 [facility] Alcohol intake 2018-10-04 2018-10-04 Current University of 00:00:00 00:00:00 non-drinker of [place] MD Lila muñoz alcohol [facility] (finding) Tobacco use and 2018-09-04 2018-09-04 Smokeless Universit y of exposure 00:00:00 00:00:00 tobacco non-user [facility] Cigarettes smoked 2018-09-04 2018-09-04 [facility] ity of current (pack per 00:00:00 00:00:00 [place] Zoltan Neely ) - Reported Cancer Ce nter Cigarette 2018-09-04 2018-09-04 [place] of pack-years 00:00:00 00:00:00 [place] MD Olvin banuelos [facility] Sex Assigned At [birth year] Universit y of 00:00:00 00:00:00 [place] MD Bah [facility] Smoking Status Start Date Stop Date Source Tobacco smoking [facility] consumption unknown Never smoked tobacco [facility] Former Smoker 2020-05-03 00:00:00 2020-05-03 [facility] nter Medications Ordered Filled Start Stop Current Ordering Indication Dosage Frequency Signature Comments Components Source Medication Medication Date Date Medication? Clinician (SIG) Name Name metoclopram No 10mg 10 mg, Uni vers oleg HCl 02-19 Slow IV ity of (REGLAN) 15:30: 15:37 [place], [place] injection 00 :00 ONCE, 1 Medical 10 mg dose, On Branch Sat02/19/22 at 1030, JOSE NaCl 0.9% No 1000mL [...] Branch 02/19/22 at 0930, JOSE methylPREDN Yes [id number] Take by [facility] ISolone 11-29 mouth ity of (MEDROL, 00:00: SEE-INSTRU Jacques as TE,) 4 mg 00 CTIONS. Medica l tablets follow Branch package directions methylPREDN Yes [id number] Take by [facility] ISolone 11-29 mouth ity of (MEDROL, 00:00: SEE-INSTRU Jacques as TE,) 4 mg 00 CTIONS. Medica l tablets follow Branch package directions amoxicillin 2021- No [id number] 1{tbl} Take 1 Univers -clavulanat 11-29 tablet [...] s: acute pain estrogens, Yes Take by Univ ers conjugated 3-01 mouth. ity of (PREMARIN 16:19: [place] ORAL) 44 Medical Branch estrogens, Yes Take by Univ ers conjugated - mouth. ity of (PREMARIN 16:19: [place] ORAL) 44 Medical Branch naproxen Yes [id number] 500mg Take 1 U nivers (NAPROSYN) 2-02 tablet by ity of 500 mg 00:00: mouth 2 [place] tablet 00 (two) Medical times Branch daily with meals. naproxen Yes [id number] 500mg Take 1 U nivers (NAPROSYN) 2-02 tablet by ity of 500 mg 00:00: mouth 2 [place] tablet 00 (two) Medical times Branch daily with meals. albuterol 2020-07 Yes [id number] 2{puff} Inhale 2 Univers 90 2-22 Puffs [...] Cough. Indication s: cough albuterol 2020-07 Yes [id number] 2{puff} Inhale 2 Univers 90 2-22 Puffs [...] pain) V/SA) estrogens, 2018-07 Yes Take by Univ ers conjugated 0-23 mouth ity of (PREMARIN 00:00: daily. [place] ORAL) 00 MD Gian payton [facility] estrogens, 2018-07 Yes Take by Univ ers conjugated 0-23 mouth ity of (PREMARIN 00:00: daily. [place] ORAL) 00 MD Gian payton [facility] estrogens, 2018-07 Yes Take by Univ ers conjugated 0-23 mouth ity of (PREMARIN 00:00: daily. [place] ORAL) 00 [facility] Premarin Premarin 2018-07 Yes Kaywin 1 tablet Common 0-23 [facility] 00:00: - [facility] 00 [facility] Premarin Premarin 2018-07 No 1{table QD Premarin 1.25 MG 1.25 MG 0-23 t} 1.25 MG 00:00: 00 estrogens, 2018-07 Yes Take by Univ ers conjugated 0-23 mouth ity of (PREMARIN 00:00: daily. [place] ORAL) 00 MD Gian payton [facility] estrogens, 2018-07 Yes Take by Univ ers conjugated 0-23 mouth ity of (PREMARIN 00:00: daily. [place] ORAL) 00 MD Gian payton [facility] estrogens, 2018-07 Yes Take by Univ ers conjugated 0-23 mouth ity of (PREMARIN 00:00: daily. [place] ORAL) 00 MD Gian payton [facility] estrogens, 2018-07 Yes Take by Univ ers conjugated 0-23 mouth ity of (PREMARIN 00:00: daily. [place] ORAL) 00 MD Gian payton [facility] estrogens, 2018-07 Yes Take by Univ ers conjugated 0-23 mouth ity of (PREMARIN 00:00: daily. [place] ORAL) 00 MD Gian payton [facility] estrogens, 2018-07 Yes Take by Univ ers conjugated 0-23 mouth ity of (PREMARIN 00:00: daily. [place] ORAL) 00 MD Gian payton [facility] estrogens, 2018-07 Yes Take by Univ ers conjugated 0-23 mouth ity of (PREMARIN 00:00: daily. [place] ORAL) 00 [facility] Estradiol Estradiol 2019-1 Yes Kaywin 1 tablet Common 0-01 [facility] 00:00: - [facility] citalopram Yes Univers (CeleXA) 40 9-10 ity of mg tablet 00:00: [place] MD Gian payton [facility] citalopram Yes Univers (CeleXA) 40 9-10 ity of mg tablet 00:00: [place] MD Chan tata [facility] citalopram Yes Univers (CeleXA) 40 9-10 ity of mg tablet 00:00: [place] [facility] citalopram Yes Univers (CeleXA) 40 9-10 ity of mg tablet 00:00: [place] MD Gian payton [facility] citalopram Yes Univers (CeleXA) 40 9-10 ity of mg tablet 00:00: [place] MD Gian payton [facility] citalopram Yes Univers (CeleXA) 40 9-10 ity of mg tablet 00:00: [place] [facility] citalopram Yes Univers (CeleXA) 40 9-10 ity of mg tablet 00:00: [place] [facility] Univers (CeleXA) 40 9-10 ity of mg tablet 00:00: [place] MD Gian payton [facility] citalopram Yes Univers (CeleXA) 40 9-10 ity of mg tablet 00:00: MD Gian payton [facility] citalopram Yes Univers (CeleXA) 40 9-10 ity of mg tablet 00:00: MD Gian payton [facility] levothyroxi Yes Univer s ne 175 mcg 8-10 ity of cap 00:00: MD Gian payton [facility] levothyroxi Yes Univer s ne 175 mcg 8-10 ity of cap 00:00: [place] MD Gian payton [facility] levothyroxi Yes Univer s ne 175 mcg 8-10 ity of cap 00:00: MD Gian payton [facility] levothyroxi 2010-0 Yes Univer s ne 175 mcg 8-10 ity of cap 00:00: 00 Tristianbrennan payton [facility] levothyroxi 2010-0 Yes Univer s ne 175 mcg 8-10 ity of cap 00:00: 00 Tristianbrennan payton [facility] levothyroxi 2010-0 Yes Univer s ne 175 mcg 8-10 ity of cap 00:00: 00 Tristianbrennan payton [facility] levothyroxi 2010-0 Yes Univer s ne 175 mcg 8-10 ity of cap 00:00: 00 Dustinmorena payton [facility] levothyroxi 2010-0 Yes Univer s ne 175 mcg 8-10 ity of cap 00:00: 00 Dustinmorena payton [facility] levothyroxi 2010-0 Yes Univer s ne 175 mcg 8-10 ity of cap 00:00: 00 Dustinmorena payton [facility] levothyroxi 2010-0 Yes Univer s ne 175 mcg 8-10 ity of cap 00:00: 00 MD Gian payton [facility] zolpidem 2006-0 Yes Univers (AMBIEN) 10 07-01 ity of mg tablet 00:00: [place] 00 MD Gian payton [facility] zolpidem 2006-0 Yes Univers (AMBIEN) 10 07-01 ity of mg tablet 00:00: 00 MD Gian payton [facility] zolpidem 2006-0 Yes Univers (AMBIEN) 10 07-01 ity of mg tablet 00:00: 00 MD Gian payton [facility] zolpidem 2006-0 Yes Univers (AMBIEN) 10 07-01 ity of mg tablet 00:00: 00 MD Gian payton [facility] zolpidem 2006-0 Yes Univers (AMBIEN) 10 07-01 ity of mg tablet 00:00: 00 MD Gian payton [facility] zolpidem 2006-0 Yes Univers (AMBIEN) 10 07-01 ity of mg tablet 00:00: 00 MD Gian payton [facility] zolpidem 2007-0 Yes Univers (AMBIEN) 10 07-01 ity of mg tablet 00:00: 00 MD Gian payton [facility] zolpidem 2007-0 Yes Univers (AMBIEN) 10 07-01 ity of mg tablet 00:00: [place] 00 MD [facility] zolpidem Yes Univers ([facility]) 10 07-01 ity of mg tablet 00:00: [place] 00 MD [facility] zolpidem Yes Univers ([facility]) 10 07-01 ity of mg tablet 00:00: [place] 00 MD [facility] acetaminoph acetaminoph Yes [address] [facility] [...] C HI St conjugated conjugated Gutierrez es (SENIOR CARE) 1.25 (SENIOR CARE) 1.25 Mem oria MG Oral MG Oral [...] [facility] conjugated conjugated daily Olamide kes (SENIOR CARE) 1.25 (SENIOR CARE) 1.25 Mem oria MG Oral MG Oral l Tablet Tablet (LUF/LI V/SA) levothyroxi levothyroxi Yes 150ug 1xD orally [facility] (LUF/LI V/SA) Celexa Celexa Yes 1 tablet Commo n [facility] Levothyroxi Levothyroxi Yes y 1 tablet Common ne Sodium ne Sodium [facility] on an Sp karla empty - CHI stomach in [facility] Estradiol Estradiol Yes y 1 patch to Common [facility] skin [facility] Promethazin Promethazin No 1{table Promethazi e HCl 25 mg e HCl 25 mg t_as_ne ne HCl 25 eded} mg Estradiol Estradiol No 1{patch Estradiol 0.1 MG/24HR 0.1 MG/24HR _to_ski 0.1 n} MG/24HR Celexa 40 Celexa 40 No 1{table QD Celexa 40 MG MG t} MG [place] No 1{table QID [place] 7.5-325 MG 7.5-325 MG t_as_ne 7.5-325 MG [...] Sodium 150 MCG 150 MCG 150 MCG [place] No 1{table QID [place] 7.5-325 MG 7.5-325 MG t_as_ne 7.5-325 MG eded} Promethazin Promethazin No 1{table Promethazi e HCl 25 mg e HCl 25 mg t_as_ne ne HCl 25 eded} mg Estradiol Estradiol No 1{patch Estradiol 0.1 MG/24HR 0.1 MG/24HR _to_ski 0.1 n} MG/24HR Premarin Premarin No 1{table QD Premarin 1.25 MG 1.25 MG t} 1.25 MG [place] No 1{table QID [place] 7.5-325 MG 7.5-325 MG t_as_ne 7.5-325 MG [...] 1.25 MG 1.25 MG t} 1.25 MG [place] No 1{table QID [place] 7.5-325 MG 7.5-325 MG t_as_ne 7.5-325 MG [...] of Unspecified 00:00:00 [place] MD [facility] Tdap 2011-03-30 Completed University of 00:00:00 [place] MD Bah [facility] Influenza, 2011-03-30 Completed University of Unspecified 00:00:00 [place] MD [facility] Tdap 2011-03-30 Completed University of 00:00:00 [place] Olvin [facility] Influenza, 2011-03-30 Completed University of Unspecified 00:00:00 [place] Alfonso ilir [facility] Tdap 2011-03-30 Completed University of 00:00:00 [place] Olvin [facility] Influenza, 2011-03-30 Completed University of Unspecified 00:00:00 [place] Alfonso ilir [facility] Tdap 2011-03-30 Completed University of 00:00:00 [place] Olvin [facility] Influenza, 2011-03-30 Completed University of Unspecified 00:00:00 [place] [facility] Tdap 2011-03-30 Completed University of 00:00:00 [place] Olvin [facility] Influenza, 2011-03-30 Completed University of Unspecified 00:00:00 [place] Alfonso ilir [facility] Tdap 2011-03-30 Completed University of 00:00:00 [place] [facility] Influ[facility], 2011-03-30 Completed University of Unspecified 00:00:00 [place] MD Hamilton [facility] Tdap 2011-03-30 Completed University of 00:00:00 [place] [facility] Influenza, 2011-03-30 Completed University of Unspecified 00:00:00 [place] Alfonso ilir [facility] Tdap 2011-03-30 Completed University of 00:00:00 [place] Olvin banuelos [facility] Influenza, 2011-03-30 Completed University of Unspecified 00:00:00 [place] Alfonso ilir [facility] Tdap 2011-03-30 Completed University of 00:00:00 [place] Olvin [facility] Influenza, 2011-03-30 Completed University of Unspecified 00:00:00 [place] [facility] Tdap 2011-03-30 Completed University of 00:00:00 [place] [facility] Influenza (IM) 2009-04-05 Completed University of Preservative Free 00:00:00 [facility] Influenza (IM) 2009-04-05 Completed University of Preservative Free 00:00:00 [facility] Influenza (IM) 2009-04-05 Completed University of Preservative Free 00:00:00 [facility] Influenza (IM) 2009-04-05 Completed University of Preservative Free 00:00:00 [facility] Influenza (IM) 2009-04-05 Completed University of Preservative Free 00:00:00 [facility] Influenza (IM) 2009-04-05 Completed University of Preservative Free 00:00:00 [facility] Influenza (IM) 2009-04-05 Completed University of Preservative Free 00:00:00 [facility] Influenza (IM) 2009-04-05 Completed University of Preservative Free 00:00:00 [facility] Influenza (IM) 2009-04-05 Completed University of Preservative Free 00:00:00 [facility] Influenza (IM) 2009-04-05 Completed University of Preservative Free 00:00:00 [facility] Vital Signs Vital Name Observation Time Observation Value Comments Source Systolic blood 2022-02-19 14:13:00 156 mm[Hg] Univer sity of pressure [facility] Diastolic blood 2022-02-19 14:13:00 94 mm[Hg] Unive rsity of [facility] Heart rate 2022-02-19 14:13:00 111 /min [facility] Body temperature 2022-02-19 14:13:00 37.11 Ericka [facility] Respiratory rate 2022-02-19 14:13:00 22 /min [facility] Body height 2022-02-19 14:13:00 162.6 cm [facility] Body weight 2022-02-19 14:13:00 104.327 kg [facility] BMI 2022-02-19 14:13:00 39.48 kg/m2 [facility] Oxygen saturation in 2022-02-19 14:13:00 99 /min [facility] Arterial blood by [facility] Pulse oximetry Branch Systolic blood 2021-11-29 22:40:00 116 mm[Hg] Univer sity of pressure [facility] Diastolic blood 2021-11-29 22:40:00 85 mm[Hg] Unive rsity of pressure [facility] Heart rate 2021-11-29 22:40:00 87 /min Universi ty [facility] Body temperature 2021-11-29 22:40:00 37.28 Ericka [facility] Respiratory rate 2021-11-29 22:40:00 16 /min [facility] Body height 2021-11-29 22:40:00 162.6 cm [facility] Body weight 2021-11-29 22:40:00 103.874 kg [facility] BMI 2021-11-29 22:40:00 39.31 kg/m2 [facility] Oxygen saturation in 2021-11-29 22:40:00 98 /min [facility] Arterial blood by [facility] Pulse oximetry Branch Height 2021-04-23 [...] Center Heart rate 2021-10-26 15:16:33 92 /min [facility] Respiratory rate 2021-10-26 15:16:33 16 /min [facility] Oxygen saturation in 2021-10-26 15:16:33 98 /min [facility] Arterial blood by Jeffrey muñoz Pulse oximetry [facility] Body Temperature 2021-04-23 00:58:00 97.8 [degF] [facility] (LUF/DAVID/SA) Pulse Rate 2021-04-23 00:58:00 116 /min [facility] (F/DAVID/SA) Respiratory Rate 2021-04-23 00:58:00 18 /min [facility] (F/DAVID/SA) O2% BldC Oximetry 2021-04-23 00:58:00 99 % [facility] (F/DAVID/SA) BP Systolic 2021-04-23 00:58:00 111 mm[Hg] [facility] (F/DAVID/SA) BP Diastolic 2021-04-23 00:58:00 77 mm[Hg] [facility] (F/DAVID/SA) Height 2021-04-23 00:58:00 64 [in_i] [facility] (F/DAVID/SA) Weight 2021-04-23 00:58:00 105.1 kg [facility] (LUF/DAVID/SA) BMI (Body Mass 2021-04-23 00:58:00 40 kg/m2 [facility] (F/DAVID/SA) Body Temperature 2021-03-24 10:53:00 98.6 [degF] [facility] (LUF/DAVID/SA) Pulse Rate 2021-03-24 10:53:00 87 /min [facility] (F/DAVID/SA) Respiratory Rate 2021-03-24 10:53:00 18 /min [facility] (LUF/DAVID/SA) O2% BldC Oximetry 2021-03-24 10:53:00 97 % [facility] (LUF/DAVID/SA) BP Systolic 2021-03-24 10:53:00 120 mm[Hg] [facility] (LUF/DAVID/SA) BP Diastolic 2021-03-24 10:53:00 86 mm[Hg] [facility] (LUF/DAVID/SA) Height 2021-03-24 10:53:00 64 [in_i] [facility] (LUF/DAVID/SA) Weight 2021-03-24 10:53:00 105 kg [facility] (LUF/DAVID/SA) BMI (Body Mass 2021-03-24 10:53:00 40 kg/m2 [facility] Index) [facility] (LUF/DAVID/SA) Body Temperature 2021-03-10 10:55:00 98.4 [degF] [facility] (LUF/DAVID/SA) Pulse Rate 2021-03-10 10:55:00 85 /min [facility] (LUF/DAVID/SA) Respiratory Rate 2021-03-10 10:55:00 20 /min [facility] (F/DAVID/SA) O2% BldC Oximetry 2021-03-10 10:55:00 100 % [facility] (F/DAVID/SA) BP Systolic 2021-03-10 10:55:00 140 mm[Hg] [facility] (LUF/DAVID/SA) BP Diastolic 2021-03-10 10:55:00 98 mm[Hg] [facility] (LUF/DAVID/SA) Height 2021-03-10 10:55:00 64 [in_i] [facility] (F/DAVID/SA) Weight 2021-03-10 10:55:00 105.2 kg [facility] (LUF/DAVID/SA) BMI (Body Mass 2021-03-10 10:55:00 40 kg/m2 [facility] Index) [facility] (LUF/DAVID/SA) Pulse Rate 2021-02-23 12:32:00 67 /min [facility] (LUF/DAVID/SA) O2% BldC Oximetry 2021-02-23 12:32:00 98 % [facility] (LUF/DAVID/SA) BP Systolic 2021-02-23 12:32:00 112 mm[Hg] [facility] (LUF/DAVID/SA) BP Diastolic 2021-02-23 12:32:00 70 mm[Hg] [facility] (LUF/DAVID/SA) Heart Rate 2021-02-23 11:16:00 64 /min [facility] (LUF/DAVID/SA) Respiratory Rate 2021-02-23 11:16:00 14 /min [facility] (F/DAVID/SA) Body Temperature 2021-02-23 08:24:00 98.1 [degF] [facility] (F/DAVID/SA) Height 2021-02-23 08:24:00 64 [in_i] [facility] (F/DAVID/SA) Weight 2021-02-23 08:24:00 110 kg [facility] (F/DAVID/SA) BMI (Body Mass 2021-02-23 08:24:00 41.9 kg/m2 [facility] (LUF/DAVID/SA) Heart Rate 2021-01-10 01:46:00 93 /min [facility] (F/DAVID/SA) Pulse Rate 2021-01-10 01:46:00 95 /min [facility] (LUF/DAVID/SA) Respiratory Rate 2021-01-10 01:46:00 16 /min [facility] (F/DAVID/SA) O2% BldC Oximetry 2021-01-10 01:46:00 97 % [facility] (LUF/DAVID/SA) BP Systolic 2021-01-10 01:46:00 103 mm[Hg] [facility] (LUF/DAVID/SA) BP Diastolic 2021-01-10 01:46:00 71 mm[Hg] [facility] (F/DAVID/SA) Weight 2021-01-10 00:53:00 102 kg [facility] (LUF/DAVID/SA) Body Temperature 2021-01-10 00:47:00 98.6 [degF] [facility] (LUF/DAVID/SA) Pulse Rate 2020-12-12 14:20:00 87 /min [facility] (LUF/DAVID/SA) O2% BldC Oximetry 2020-12-12 14:20:00 98 % [facility] (LUF/DAVID/SA) BP Systolic 2020-12-12 14:20:00 128 mm[Hg] [facility] (LUF/DAVID/SA) BP Diastolic 2020-12-12 14:20:00 86 mm[Hg] [facility] (LUF/DAVID/SA) Body Temperature 2020-12-12 12:39:00 98.9 [degF] [facility] (LUF/DAVID/SA) Respiratory Rate 2020-12-12 12:39:00 20 /min [facility] (LUF/DAVID/SA) Weight 2020-12-12 12:39:00 102 kg [facility] (LUF/DAVID/SA) Body Temperature 2020-12-08 10:27:00 98.6 [degF] [facility] (LUF/DAVID/SA) Pulse Rate 2020-12-08 10:27:00 79 /min [facility] (LUF/DAVID/SA) Respiratory Rate 2020-12-08 10:27:00 16 /min [facility] (LUF/DAVID/SA) O2% BldC Oximetry 2020-12-08 10:27:00 99 % [facility] (LUF/DAVID/SA) BP Systolic 2020-12-08 10:27:00 111 mm[Hg] [facility] (LUF/DAVID/SA) BP Diastolic 2020-12-08 10:27:00 57 mm[Hg] [facility] (LUF/DAVID/SA) Weight 2020-12-08 10:27:00 103 kg [facility] (LUF/DAVID/SA) Body Temperature 2020-11-25 00:27:00 97.9 [degF] [facility] (LUF/DAVID/SA) Pulse Rate 2020-11-25 00:27:00 82 /min [facility] (LUF/DAVID/SA) Respiratory Rate 2020-11-25 00:27:00 17 /min [facility] (LUF/DAVID/SA) O2% BldC Oximetry 2020-11-25 00:27:00 98 % [facility] (LUF/DAVID/SA) BP Systolic 2020-11-25 00:27:00 109 mm[Hg] [facility] (LUF/DAVID/SA) BP Diastolic 2020-11-25 00:27:00 62 mm[Hg] [facility] [facility] (LUF/DAVID/SA) Heart Rate 2020-11-21 09:30:00 75 /min [facility] (LUF/DAVID/SA) Respiratory Rate 2020-11-21 09:30:00 14 /min [facility] (LUF/DAVID/SA) BP Systolic 2020-11-21 09:30:00 120 mm[Hg] [facility] (LUF/DAVID/SA) BP Diastolic 2020-11-21 09:30:00 76 mm[Hg] [facility] (LUF/DAVID/SA) Body Temperature 2020-11-21 07:15:00 98.1 [degF] [facility] (LUF/DAVID/SA) Pulse Rate 2020-11-21 07:15:00 103 /min [facility] (F/DAVID/SA) O2% BldC Oximetry 2020-11-21 07:15:00 100 % [facility] (F/DAVID/SA) Height 2020-11-21 07:15:00 64 [in_i] [facility] (F/DAVID/SA) Weight 2020-11-21 07:15:00 103.1 kg [facility] (LUF/DAVID/SA) BMI (Body Mass 2020-11-21 07:15:00 39.2 kg/m2 [facility] (LUF/DAVID/SA) Heart Rate 2020-11-14 13:30:00 69 /min [facility] (LUF/DAVID/SA) Pulse Rate 2020-11-14 13:30:00 70 /min [facility] (LUF/DAVID/SA) Respiratory Rate 2020-11-14 13:30:00 10 /min [facility] (LUF/DAVID/SA) O2% BldC Oximetry 2020-11-14 13:30:00 96 % [facility] (LUF/DAVID/SA) BP Systolic 2020-11-14 13:30:00 103 mm[Hg] [facility] (LUF/DAVID/SA) BP Diastolic 2020-11-14 13:30:00 77 mm[Hg] [facility] (LUF/DAVID/SA) Body Temperature 2020-11-14 09:47:00 97.4 [degF] [facility] (F/DAVID/SA) Weight 2020-11-14 09:47:00 103 kg [facility] (F/DAVID/SA) Body Temperature 2020-11-08 08:32:00 98.1 [degF] [facility] (LUF/DAVID/SA) Pulse Rate 2020-11-08 08:32:00 82 /min [facility] (LUF/DAVID/SA) Respiratory Rate 2020-11-08 08:32:00 20 /min [facility] (LUF/DAVID/SA) O2% BldC Oximetry 2020-11-08 08:32:00 100 % [facility] (LUF/DAVID/SA) BP Systolic 2020-11-08 08:32:00 129 mm[Hg] [facility] (LUF/DAVID/SA) BP Diastolic 2020-11-08 08:32:00 72 mm[Hg] [facility] (LUF/DAVID/SA) Height 2020-11-08 08:32:00 64 [in_i] [facility] (LUF/DAVID/SA) Weight 2020-11-08 08:32:00 103.1 kg [facility] (LUF/DAVID/SA) BMI (Body Mass 2020-11-08 08:32:00 39.2 kg/m2 [facility]) [facility] (LUF/DAVID/SA) Body Temperature 2020-11-01 00:58:00 98.7 [degF] [facility] (LUF/DAVID/SA) Pulse Rate 2020-11-01 00:58:00 104 /min [facility] (LUF/DAVID/SA) Respiratory Rate 2020-11-01 00:58:00 20 /min [facility] (F/DAVID/SA) O2% BldC Oximetry 2020-11-01 00:58:00 99 % [facility] (F/DAVID/SA) BP Systolic 2020-11-01 00:58:00 133 mm[Hg] [facility] (LUF/DAVID/SA) BP Diastolic 2020-11-01 00:58:00 101 mm[Hg] [facility] (F/DAVID/SA) Height 2020-11-01 00:53:00 65 [in_i] [facility] (F/DAVID/SA) Weight 2020-11-01 00:53:00 103 kg [facility] (F/DAVID/SA) BMI (Body Mass 2020-11-01 00:53:00 37.8 kg/m2 [facility] (LUF/DAVID/SA) Body Temperature 2020-10-04 23:51:00 98 [degF] [facility] (F/DAVID/SA) Pulse Rate 2020-10-04 23:51:00 96 /min [facility] (LUF/DAVID/SA) Respiratory Rate 2020-10-04 23:51:00 20 /min [facility] (F/DAVID/SA) O2% BldC Oximetry 2020-10-04 23:51:00 98 % [facility] (F/DAVID/SA) BP Systolic 2020-10-04 23:51:00 125 mm[Hg] [facility] (LUF/DAVID/SA) BP Diastolic 2020-10-04 23:51:00 73 mm[Hg] [facility] (F/DAVID/SA) Height 2020-10-04 23:47:00 65 [in_i] [facility] (LUF/DAVID/SA) Weight 2020-10-04 23:47:00 102.6 kg [facility] (LUF/DAVID/SA) BMI (Body Mass 2020-10-04 23:47:00 37.6 kg/m2 [facility] Index) [facility] (LUF/DAVID/SA) Body Temperature 2020-09-18 01:44:00 98.3 [degF] [facility] (LUF/DAVID/SA) Pulse Rate 2020-09-18 01:44:00 116 /min [facility] (F/DAVID/SA) Respiratory Rate 2020-09-18 01:44:00 20 /min [facility] (F/DAVID/SA) O2% BldC Oximetry 2020-09-18 01:44:00 99 % [facility] (F/DAVID/SA) BP Systolic 2020-09-18 01:44:00 127 mm[Hg] [facility] (LUF/[facility]ID/SA) BP Diastolic 2020-09-18 01:44:00 83 mm[Hg] [facility] (F/DAVID/SA) Height 2020-09-18 01:40:00 64 [in_i] [facility] (F/DAVID/SA) Weight 2020-09-18 01:40:00 102.8 kg [facility] (F/DAVID/SA) BMI (Body Mass 2020-09-18 01:40:00 39.1 kg/m2 [facility] Index) [facility] (F/DAVID/SA) Pulse Rate 2020-09-12 02:16:00 88 /min [facility] (F/DAVID/SA) O2% BldC Oximetry 2020-09-12 02:16:00 98 % [facility] (F/DAVID/SA) BP Systolic 2020-09-12 02:16:00 113 mm[Hg] [facility] (LUF/[facility]ID/SA) BP Diastolic 2020-09-12 02:16:00 64 mm[Hg] [facility] (F/DAVID/SA) Body Temperature 2020-09-12 00:56:00 97.9 [degF] [facility] (LUF/[facility]ID/SA) Respiratory Rate 2020-09-12 00:56:00 18 /min [facility] (LUF/[facility]VID/SA) Height 2020-09-12 00:50:00 65 [in_i] [facility] (LUF/[facility]ID/SA) Weight 2020-09-12 00:50:00 104.5 kg [facility] (LUF/DAVID/SA) BMI (Body Mass 2020-09-12 00:50:00 38.3 kg/m2 [facility]) [facility] (LUF/DAVID/SA) Pulse Rate 2020-08-22 03:16:00 100 /min [facility] (LUF/[facility]VID/SA) O2% BldC Oximetry 2020-08-22 03:16:00 95 % [facility] (LUF/DAVID/SA) BP Systolic 2020-08-22 03:16:00 129 mm[Hg] [facility] (LUF/[facility]ID/SA) BP Diastolic 2020-08-22 03:16:00 88 mm[Hg] [facility] (LUF/[facility]ID/SA) Body Temperature 2020-08-22 01:35:00 98.4 [degF] [facility] (LUF/[facility]ID/SA) Respiratory Rate 2020-08-22 01:35:00 20 /min [facility] (LUF/[facility]VID/SA) Height 2020-08-22 01:35:00 64 [in_i] [facility] (LUF/[facility]ID/SA) Weight 2020-08-22 01:35:00 102 kg [facility] (LUF/DAVID/SA) BMI (Body Mass 2020-08-22 01:35:00 38.8 kg/m2 [facility]) [facility] (LUF/DAVID/SA) Pulse Rate 2020-08-06 03:31:00 83 /min [facility] (LUF/DAVID/SA) O2% BldC Oximetry 2020-08-06 03:31:00 96 % [facility] (LUF/DAVID/SA) BP Systolic 2020-08-06 03:31:00 127 mm[Hg] [facility] (LUF/[facility]ID/SA) BP Diastolic 2020-08-06 03:31:00 82 mm[Hg] [facility] (LUF/[facility]ID/SA) Body Temperature 2020-08-06 01:45:00 98 [degF] [facility] (F/DAVID/SA) Respiratory Rate 2020-08-06 01:45:00 20 /min [facility] (LUF/[facility]ID/SA) Height 2020-08-06 01:39:00 66 [in_i] [facility] (F/DAVID/SA) Weight 2020-08-06 01:39:00 104.2 kg [facility] (LUF/[facility]VID/SA) BMI (Body Mass 2020-08-06 01:39:00 37.3 kg/m2 [facility] (LUF/DAVID/SA) Pulse Rate 2020-07-19 11:16:00 67 /min [facility] (F/DAVID/SA) O2% BldC Oximetry 2020-07-19 11:16:00 94 % [facility] (F/DAVID/SA) BP Systolic 2020-07-19 11:16:00 101 mm[Hg] [facility] (LUF/[facility]ID/SA) BP Diastolic 2020-07-19 11:16:00 63 mm[Hg] [facility] (LUF/[facility]ID/SA) Body Temperature 2020-07-19 07:50:00 98 [degF] [facility] (F/DAVID/SA) Respiratory Rate 2020-07-19 07:50:00 18 /min [facility] (F/DVAID/SA) Weight 2020-07-19 07:50:00 100 kg [facility] (F/DAVID/SA) Heart Rate 2020-07-05 04:46:00 80 /min [facility] (LUF/[facility]ID/SA) Respiratory Rate 2020-07-05 04:46:00 15 /min [facility] (LUF/[facility]/SA) BP Systolic 2020-07-05 04:46:00 134 mm[Hg] [facility] (LUF/[facility]) BP Diastolic 2020-07-05 04:46:00 60 mm[Hg] [facility] (LUF/[facility]) Body Temperature 2020-07-05 02:57:00 98 [degF] [facility] (LUF/[facility]) Pulse Rate 2020-07-05 02:57:00 82 /min [facility] (LUF/[facility]/SA) O2% BldC Oximetry 2020-07-05 02:57:00 99 % [facility] (LUF/[facility]/SA) Height 2020-07-05 02:50:00 65 [in_i] [facility] (LUF/[facility]/SA) Weight 2020-07-05 02:50:00 102.1 kg [facility] (LUF/[facility]ID/SA) BMI (Body Mass 2020-07-05 02:50:00 37.5 kg/m2 [facility] (LUF/DAVID/SA) Body Temperature 2020-06-07 13:38:00 98.5 [degF] [facility] (LUF/[facility]) Pulse Rate 2020-06-07 13:38:00 95 /min [facility] (LUF/[facility]) Respiratory Rate 2020-06-07 13:38:00 20 /min [facility] (LUF/[facility]) O2% BldC Oximetry 2020-06-07 13:38:00 97 % [facility] (LUF/[facility]/SA) BP Systolic 2020-06-07 13:38:00 129 mm[Hg] [facility] (LUF/[facility]) BP Diastolic 2020-06-07 13:38:00 73 mm[Hg] [facility] (LUF/[facility]/SA) Height 2020-06-07 13:38:00 64 [in_i] [facility] (LUF/[facility]ID/SA) Weight 2020-06-07 13:38:00 99.79 kg [facility] (LUF/[facility]VID/SA) BMI (Body Mass 2020-06-07 13:38:00 38 kg/m2 [facility] Index) [facility] (LUF/[facility]ID/SA) Body Temperature 2020-05-31 09:45:00 99.6 [degF] [facility] (LUF/[facility]ID/SA) Pulse Rate 2020-05-31 09:45:00 86 /min [facility] (LUF/[facility]) Respiratory Rate 2020-05-31 09:45:00 18 /min [facility] (LUF/[facility]/SA) O2% BldC Oximetry 2020-05-31 09:45:00 98 % [facility] (LUF/[facility]ID/SA) BP Systolic 2020-05-31 09:45:00 118 mm[Hg] [facility] (LUF/[facility]ID/SA) BP Diastolic 2020-05-31 09:45:00 78 mm[Hg] [facility] (LUF/[facility]) Height 2020-05-31 09:45:00 64 [in_i] [facility] (LUF/[facility]) Weight 2020-05-31 09:45:00 99.79 kg [facility] (LUF/[facility]VID/SA) BMI (Body Mass 2020-05-31 09:45:00 38 kg/m2 [facility] Index) [facility] (LUF/[facility]ID/SA) Heart Rate 2020-04-25 20:01:00 69 /min [facility] (LUF/[facility]/SA) Pulse Rate 2020-04-25 20:01:00 71 /min [facility] (LUF/[facility]/SA) Respiratory Rate 2020-04-25 20:01:00 18 /min [facility] (LUF/[facility]/SA) O2% BldC Oximetry 2020-04-25 20:01:00 100 % [facility] (LUF/[facility]/SA) BP Systolic 2020-04-25 20:01:00 126 mm[Hg] [facility] (LUF/[facility]) BP Diastolic 2020-04-25 20:01:00 86 mm[Hg] [facility] (LUF/[facility]) Body Temperature 2020-04-25 16:50:00 98.4 [degF] [facility] (LUF/[facility]) Height 2020-04-25 16:50:00 64 [in_i] [facility] (LUF/[facility]/SA) Weight 2020-04-25 16:50:00 220 [lb_av] [facility] (LUF/[facility]) BMI (Body Mass 2020-04-25 16:50:00 38 kg/m2 [facility] Index) [facility] (LUF/[facility]ID/SA) Heart Rate 2020-03-20 18:18:00 112 /min [facility] (LUF/[facility]) Pulse Rate 2020-03-20 18:16:00 93 /min [facility] (LUF/[facility]/SA) O2% BldC Oximetry 2020-03-20 18:16:00 92 % [facility] (LUF/[facility]ID/SA) BP Systolic 2020-03-20 18:16:00 127 mm[Hg] [facility] (LUF/[facility]) BP Diastolic 2020-03-20 18:16:00 85 mm[Hg] [facility] (LUF/[facility]) Body Temperature 2020-03-20 17:17:00 99.2 [degF] [facility] (LUF/[facility]) Respiratory Rate 2020-03-20 17:17:00 19 /min [facility] (LUF/[facility]) Height 2020-03-20 17:17:00 64 [in_i] [facility] (LUF/[facility]) Weight 2020-03-20 17:17:00 106.9 kg [facility] (LUF/[facility]ID/SA) BMI (Body Mass 2020-03-20 17:17:00 40.7 kg/m2 [facility] Index) [facility] (LUF/[facility]) Respiratory Rate 2020-03-17 10:33:00 16 /min [facility] (LUF/[facility]) Body Temperature 2020-03-17 07:54:00 97.9 [degF] [facility] (LUF/[facility]) Pulse Rate 2020-03-17 07:54:00 83 /min [facility] (LUF/[facility]) O2% BldC Oximetry 2020-03-17 07:54:00 96 % [facility] (LUF/[facility]) BP Systolic 2020-03-17 07:54:00 107 mm[Hg] [facility] (LUF/[facility]ID/SA) BP Diastolic 2020-03-17 07:54:00 75 mm[Hg] [facility] (LUF/[facility]) Weight 2020-03-17 00:09:00 105.6 kg [facility] (LUF/[facility]) Heart Rate 2020-03-13 15:46:00 81 /min [facility] (LUF/[facility]) Height 2020-03-13 15:31:00 64 [in_i] [facility] (LUF/[facility]) Body Temperature 2020-03-02 15:20:00 98.6 [degF] [facility] (LUF/[facility]) Pulse Rate 2020-03-02 15:20:00 86 /min [facility] (LUF/[facility]) Respiratory Rate 2020-03-02 15:20:00 18 /min [facility] (LUF/[facility]) O2% BldC Oximetry 2020-03-02 15:20:00 99 % [facility] (LUF/[facility]/SA) BP Systolic 2020-03-02 15:20:00 131 mm[Hg] [facility] (LUF/[facility]) BP Diastolic 2020-03-02 15:20:00 85 mm[Hg] [facility] (LUF/[facility]/SA) Height 2020-03-01 10:54:00 64 [in_i] [facility] (LUF/[facility]ID/SA) Weight 2020-03-01 10:54:00 102 kg [facility] (LUF/[facility]ID/SA) BMI (Body Mass 2020-03-01 10:54:00 38.8 kg/m2 [facility] (LUF/DAVID/SA) Respiratory Rate 2020-02-27 07:47:00 16 /min [facility] (LUF/[facility]ID/SA) Body Temperature 2020-02-27 07:32:00 98.2 [degF] [facility] (LUF/DAVID/SA) Pulse Rate 2020-02-27 07:32:00 94 /min [facility] (LUF/[facility]VID/SA) O2% BldC Oximetry 2020-02-27 07:32:00 95 % [facility] (LUF/DAVID/SA) BP Systolic 2020-02-27 07:32:00 111 mm[Hg] [facility] (LUF/[facility]VID/SA) BP Diastolic 2020-02-27 07:32:00 56 mm[Hg] [facility] (LUF/DAVID/SA) Weight 2020-02-26 02:09:00 99.6 kg [facility] (LUF/[facility]VID/SA) Height 2020-02-25 10:03:00 64 [in_i] [facility] (LUF/[facility]VID/SA) Body Temperature 2020-02-25 00:52:00 97.9 [degF] [facility] (LUF/[facility]) Pulse Rate 2020-02-25 00:52:00 118 /min [facility] (LUF/[facility]) Respiratory Rate 2020-02-25 00:52:00 18 /min [facility] (LUF/[facility]/SA) O2% BldC Oximetry 2020-02-25 00:52:00 97 % [facility] BP Systolic 2020-02-25 00:52:00 133 mm[Hg] [facility] (LUF/[facility]/SA) BP Diastolic 2020-02-25 00:52:00 67 mm[Hg] [facility] (LUF/[facility]ID/SA) Height 2020-02-25 00:47:00 64 [in_i] [facility] (LUF/[facility]/SA) Weight 2020-02-25 00:47:00 103.4 kg [facility] (LUF/[facility]VID/SA) BMI (Body Mass 2020-02-25 00:47:00 39.3 kg/m2 [facility] (LUF/[facility]ID/SA) Body Temperature 2020-01-25 11:32:00 98.4 [degF] [facility] (LUF/[facility]) Pulse Rate 2020-01-25 11:32:00 81 /min [facility] (LUF/[facility]) Respiratory Rate 2020-01-25 11:32:00 14 /min [facility] (LUF/[facility]ID/SA) O2% BldC Oximetry 2020-01-25 11:32:00 98 % [facility] (LUF/[facility]ID/SA) BP Systolic 2020-01-25 11:32:00 139 mm[Hg] [facility] (LUF/[facility]ID/SA) BP Diastolic 2020-01-25 11:32:00 89 mm[Hg] [facility] (LUF/[facility]/SA) Height 2020-01-25 11:32:00 64 [in_i] [facility] (LUF/[facility]) Weight 2020-01-25 11:32:00 100.5 kg [facility] (LUF/[facility]ID/SA) BMI (Body Mass 2020-01-25 11:32:00 38.2 kg/m2 [facility] (LUF/[facility]VID/SA) Heart Rate 2019-11-24 04:16:00 84 /min [facility] (LUF/[facility]ID/SA) Pulse Rate 2019-11-24 04:16:00 90 /min [facility] (LUF/[facility]) Respiratory Rate 2019-11-24 04:16:00 26 /min [facility] (LUF/[facility]) O2% BldC Oximetry 2019-11-24 04:16:00 98 % [facility] (LUF/[facility]/SA) BP Systolic 2019-11-24 04:16:00 106 mm[Hg] [facility] (LUF/[facility]/SA) BP Diastolic 2019-11-24 04:16:00 69 mm[Hg] [facility] (LUF/[facility]) Body Temperature 2019-11-24 00:54:00 98.4 [degF] [facility] (LUF/[facility]) Height 2019-11-24 00:49:00 65 [in_i] [facility] (LUF/[facility]/SA) Weight 2019-11-24 00:49:00 103 kg [facility] (LUF/[facility]VID/SA) BMI (Body Mass 2019-11-24 00:49:00 37.8 kg/m2 [facility] Index) [facility] (LUF/[facility]VID/SA) Heart Rate 2019-10-07 22:54:00 83 /min [facility] (LUF/[facility]ID/SA) Respiratory Rate 2019-10-07 22:54:00 14 /min [facility] (LUF/[facility]) Pulse Rate 2019-10-07 22:31:00 89 /min [facility] ([facility]F/[facility]/SA) O2% BldC Oximetry 2019-10-07 22:31:00 97 % [facility] ([facility]F/[facility]) BP Systolic 2019-10-07 21:16:00 127 mm[Hg] [facility] ([facility]) BP Diastolic 2019-10-07 21:16:00 85 mm[Hg] [facility] ([facility]F/[facility]) Height 2019-10-07 20:41:00 64 [in_i] [facility] ([facility]F/[facility]) Weight 2019-10-07 20:41:00 100.2 kg [facility] (LUF/[facility]/SA) BMI (Body Mass 2019-10-07 20:41:00 38.1 kg/m2 [facility] Index) [facility] (LUF/[facility]ID/SA) Pulse Rate 2019-09-20 04:16:00 96 /min [facility] (LUF/[facility]/SA) Respiratory Rate 2019-09-20 04:16:00 9 /min [facility] (F/DAVID/SA) O2% BldC Oximetry 2019-09-20 04:16:00 96 % [facility] (LUF/[facility]ID/SA) BP Systolic 2019-09-20 04:16:00 97 mm[Hg] [facility] (LUF/[facility]ID/SA) BP Diastolic 2019-09-20 04:16:00 76 mm[Hg] [facility] (LUF/[facility]/SA) Body Temperature 2019-09-20 00:44:00 98 [degF] [facility] (LUF/[facility]) Height 2019-09-20 00:39:00 65 [in_i] [facility] (LUF/[facility]) Weight 2019-09-20 00:39:00 101.9 kg [facility] (LUF/[facility]VID/SA) BMI (Body Mass 2019-09-20 00:39:00 37.4 kg/m2 [facility] Index) [facility] (LUF/[facility]ID/SA) Pulse Rate 2019-08-17 04:31:00 81 /min [facility] (LUF/[facility]ID/SA) Respiratory Rate 2019-08-17 04:31:00 13 /min [facility] (LUF/[facility]/SA) O2% BldC Oximetry 2019-08-17 04:31:00 97 % [facility] (LUF/[facility]ID/SA) BP Systolic 2019-08-17 04:31:00 136 mm[Hg] [facility] (LUF/[facility]ID/SA) BP Diastolic 2019-08-17 04:31:00 75 mm[Hg] [facility] (LUF/[facility]) Body Temperature 2019-08-17 02:23:00 97.6 [degF] [facility] (LUF/[facility]/SA) Height 2019-08-17 02:19:00 64 [in_i] [facility] (LUF/[facility]ID/SA) Weight 2019-08-17 02:19:00 100.6 kg [facility] (LUF/[facility]VID/SA) BMI (Body Mass 2019-08-17 02:19:00 38.3 kg/m2 [facility]) [facility] (LUF/[facility]VID/SA) Pulse Rate 2018-12-07 02:33:00 79 /min [facility] (LUF/[facility]ID/SA) Respiratory Rate 2018-12-07 02:33:00 15 /min [facility] (LUF/[facility]ID/SA) O2% BldC Oximetry 2018-12-07 02:33:00 96 % [facility] (LUF/[facility]VID/SA) BP Systolic 2018-12-07 02:33:00 120 mm[Hg] [facility] (LUF/DAVID/SA) BP Diastolic 2018-12-07 02:33:00 76 mm[Hg] [facility] (LUF/[facility]VID/SA) Body Temperature 2018-12-07 01:10:00 98.2 F [facility] (LUF/DAVID/SA) Height 2018-12-07 01:10:00 64 in [facility] (LUF/DAVID/SA) Weight Measured 2018-12-07 01:10:00 218.25 lbs [facility] (LUF/DAVID/SA) BMI (Body Mass 2018-12-07 01:10:00 37.7 kg/m2 [facility]) [facility] (LUF/DAVID/SA) Pulse Rate 2018-09-30 19:40:00 70 /min [facility] (LUF/DAVID/SA) Respiratory Rate 2018-09-30 19:40:00 21 /min [facility] (F/DAVID/SA) O2% BldC Oximetry 2018-09-30 19:40:00 100 % [facility] (LUF/[facility]VID/SA) BP Systolic 2018-09-30 19:40:00 124 mm[Hg] [facility] (LUF/[facility]VID/SA) BP Diastolic 2018-09-30 19:40:00 88 mm[Hg] [facility] (LUF/DAVID/SA) Body Temperature 2018-09-30 19:23:00 99.3 F [facility] (F/DAVID/SA) Height 2018-09-30 19:23:00 66 in [facility] (F/DAVID/SA) Weight Measured 2018-09-30 19:23:00 212.52 lbs [facility] (LUF/DAVID/SA) BMI (Body Mass 2018-09-30 19:23:00 34.5 kg/m2 [facility]) [facility] (LUF/DAVID/SA) Body Temperature 2018-09-01 13:59:00 98 F [facility] (LUF/DAVID/SA) Pulse Rate 2018-09-01 12:15:00 74 /min [facility] (F/DAVID/SA) Respiratory Rate 2018-09-01 12:15:00 16 /min [facility] (LUF/[facility]ID/SA) O2% BldC Oximetry 2018-09-01 12:15:00 98 % [facility] (LUF/[facility]VID/SA) BP Systolic 2018-09-01 12:15:00 131 mm[Hg] [facility] (LUF/DAVID/SA) BP Diastolic 2018-09-01 12:15:00 78 mm[Hg] [facility] (LUF/DAVID/SA) Height 2018-09-01 09:16:00 64 in [facility] (LUF/DAVID/SA) Weight Measured 2018-09-01 09:16:00 214.24 lbs formerly [facility] (LUF/DAVID/SA) BMI (Body Mass 2018-09-01 09:16:00 37 kg/m2 [facility]) [facility] (LUF/DAVID/SA) Body Temperature 2018-05-13 10:58:00 99 F [facility] (LUF/DAVID/SA) Pulse Rate 2018-05-13 10:58:00 97 /min [facility] (LUF/DAVID/SA) Respiratory Rate 2018-05-13 10:58:00 18 /min [facility] (LUF/DAVID/SA) O2% BldC Oximetry 2018-05-13 10:58:00 98 % [facility] (LUF/DAVID/SA) BP Systolic 2018-05-13 10:58:00 131 mm[Hg] [facility] (LUF/DAVID/SA) BP Diastolic 2018-05-13 10:58:00 88 mm[Hg] [facility] (LUF/DAVID/SA) Height 2018-05-13 10:58:00 64 in [facility] (LUF/DAVID/SA) Weight Measured 2018-05-13 10:58:00 207.23 lbs [facility] (LUF/DAVID/SA) BMI (Body Mass 2018-05-13 10:58:[address] [facility]) [facility] (LUF/DAVID/SA) Body Temperature 2017-12-24 08:04:00 98.7 F [facility] (LUF/DAVID/SA) Respiratory Rate 2017-12-24 08:04:00 18 /min [facility] (LUF/DAVID/SA) O2% BldC Oximetry 2017-12-24 08:04:00 98 % [facility] (LUF/DAVID/SA) BP Systolic 2017-12-24 08:04:00 126 mm[Hg] [facility] (LUF/DAVID/SA) BP Diastolic 2017-12-24 08:04:00 86 mm[Hg] [facility] (LUF/DAVID/SA) Weight Measured 2017-12-24 08:04:00 207.23 lbs formerly [facility] (LUF/DAVID/SA) Body Temperature 2017-06-20 23:28:00 97.4 F [facility] (LUF/DAVID/SA) Respiratory Rate 2017-06-20 23:28:00 20 /min [facility] (LUF/DAVID/SA) O2% BldC Oximetry 2017-06-20 23:28:00 99 % [facility] (LUF/DAVID/SA) BP Systolic 2017-06-20 23:28:00 107 mm[Hg] [facility] (LUF/DAVID/SA) BP Diastolic 2017-06-20 23:28:00 76 mm[Hg] [facility] (LUF/DAVID/SA) Height 2017-06-20 23:28:00 64 in [facility] (LUF/DAVID/SA) Weight Measured 2017-06-20 23:28:00 217.15 lbs [facility] (LUF/DAVID/SA) BMI (Body Mass 2017-06-20 23:28:00 37.5 [facility] (LUF/DAVID/SA) Procedures Procedure Date / Time Performing Clinician Source Performed CT ABDOMEN PELVIS WO 2022-02-19 15:49:34 Trice Harris [facility] LIPASE 2022-02-19 14:26:00 Trice Harris [facility] COMP. METABOLIC PANEL 2022-02-19 14:26:00 Trice Harris [facility] ([id number]) [facility] CBC WITH DIFF 2022-02-19 14:26:00 Trice Harris [facility] URINALYSIS 2022-02-19 14:26:00 Trice Harris [facility] CONSENT/REFUSAL FOR 2022-02-19 14:11:01 Doctor Unassigned, [facility] DIAGNOSIS AND TREATMENT [facility] POCT MOLECULAR FLU 2021-11-29 22:46:00 Mohan [facility] INS INFUS DEV LT BASILIC 2020-03-15 00:00:[address] [facility] VN PERQ [facility] (LUF/DAVID/SA) ULTRASONOGRAPHY LT UP EXT 2020-03-15 00:00:[address] [facility] VNS GUID [facility] (LUF/DAVID/SA) ROBOTIC LAP LYSIS OF 2020-03-02 12:56:00 [facility] ADHESIONS [facility] (LUF/DAVID/SA) LAPAROSCOPY ENTEROLYSIS 2020-03-02 00:00:00 [facility] SEPARATE PROCEDU [facility] (LUF/DAVID/SA) COLONOSCOPY FLX DX W/COLLJ 2020-02-26 00:00:[address] [facility] SPEC WHEN PFR [facility] (LUF/DAVID/SA) ROBOTIC RIGHT OOPHORECTOMY 2019-03-21 17:09:[address] [facility] LUF (Right) [facility] (LUF/DAVID/SA) CYSTO RGP STENT PLACEMENT 2015-04-20 14:01:[address] [facility] LUF [facility] (LUF/DAVID/SA) CYSTO RGP STENT PLACEMENT 2015-04-20 14:01:00 [facility] LUF [facility] (LUF/DAVID/SA) Hysterectomy [facility]) Total thyroidectomy [facility] (LUF/DAVID/SA) section [facility] (LUF/DAVID/SA) ABDOMINAL ADHESIONS [facility] REMOVED [facility] (LUF/DAVID/SA) Extracorporeal shockwave [facility] lithotripsy [facility] (LUF/DAVID/SA) MULTIPLE CYSTECTOMYS DONE [facility] (LUF/DAVID/SA) MULTIPLE CYSTECTOMYS DONE [facility] (LUF/DAVID/SA) ABDOMINAL ADHESIONS [facility] REMOVED [facility] (LUF/DAVID/SA) Appendectomy [facility] (LUF/DAVID/SA) Plan of Care Planned Activity Planned [...] Nba, STLMLC STLMLC Common 08:27:02 Josué 0127 [facility] 2021-07-26 Outpatient Nba, STLMLC STLMLC Common 14:20:31 Josué 1203 [facility] 2021-07-26 Outpatient Nba, STLMLC STLMLC Common 14:05:52 Josué 1027 [facility] 2021-07-26 Outpatient Nba, STLMLC STLMLC Common 12:01:28 Josué 1103 [facility] 2021-07-26 Outpatient Nba, STLMLC STLMLC Common 11:56:42 Josué 1019 [facility] 2021-07-26 Outpatient Nba, STLMLC STLMLC Common 11:49:38 Josué 0928 [facility] 2021-07-26 Outpatient Nba, STLMLC STLMLC Common 11:48:02 Josué 0922 [facility] 2021-07-26 Outpatient Nba, STLMLC STLMLC Common 11:47:47 Josué 0921 [facility] 2021-07-26 Outpatient Nba, STLMLC STLMLC Common 11:42:15 Josué 0901 [facility] 2021-07-26 Outpatient Nba, STLMLC STLMLC Common 11:32:09 Josué 0720 [facility] 2022-02-19 2022-02-19 Emergency [facility], [facility] 1.2.840.114 [id number] Univers 09:15:00 11:05:00 Trice GAONA 350.1.13.10 hieu Rowe 4.2.7.2.686 [facility] [phone] [place] [address] [place] 2022-02-19 2022-02-19 Emergency X [facility] [id number] Univers 09:15:00 11:05:00 TRICE melo [facility] 2021-11-29 2021-11-29 Urgent [facility] 1.2.840.114 [id number] Univers 17:40:00 18:00:00 Care [facility] 350.1.13.10 it y of [place] 4.2.7.2.686 Jacques as SUE?BLEA [phone] Al jada [address] MEDICAL OFFICE BUILDING 2021-11-29 2021-11-29 Outpatient R [facility] [id number] Univers 17:40:00 17:40:00 [facility] 2021-11-29 Outpatient Irwin CASTAN[facility]LECT [facility]ICAL [facility] [id number] Univers 17:40:00 17:40:00 [facility] 2021-10-26 2021-10-26 Office Shiva 1.2.840.1 [id number] Univers 09:45:00 10:47:06 Visit Praveen 37786.1.1 ity of 3.412.2.7 [place] .3.667512 MD Diaz [facility] 2021-10-26 2021-10-26 Office GEOVANI Blas 1.2.840.1 [id number] Univers 09:45:00 10:47:06 Visit Praveen 73577.1.1 ity of 3.412.2.7 [place] .3.032051 MD Diaz [facility] 2021-10-26 2021-10-26 Travel 1.2.840.1 [id number] [id number] Univers 00:00:00 00:00:00 11364.1.1 350.1.13.41 ity of 3.412.2.7 2.2.7.3.698 Te vicki .3.708434 084.8 MD Diaz [facility] 2021-10-26 2021-10-26 Travel 1.2.840.1 1.2.695.171 [id number] [id number] Univers 00:00:00 00:00:00 69992.1.1 350.1.13.41 ity of 3.412.2.7 2.[place].7.3.698 [place] .3.526960 084.8 .8 [facility] 2021-10-15 2021-10-15 ROSEMARIE 1 PAXTONAA, [facility] [id number] 22:25:00 22:45:00 CONSCIOUS EKTA MAZON Luke s [facility], Memor ia [address] (LUF/LI A[address], V/[place]) [place] [address] 2021-10-15 2021-10-15 Inpatient [facility] 79e1 4a53-b [facility] 00:[facility]:00 00:00:00 MAZON 896-4ae3-9 [facility], [id number]-114094 Memor ia [address] 097eaa l [place] (LUF/LI A[address], V/[place]) [place] [address] 2021-10-15 2021-10-15 Inpatient [facility] 2f6e c8b8-[address] 00:00:00 00:00:00 MAZON 053-4dfa-8 [facility], 336-5eb8eb Memor ia [address] 66e57b l [place] (LUF/LI A[place], V/[place]) [place] [address] 2021-08-29 2021-08-29 Outpatient Irwin CARRANZA [facility] [id number] Univers 16:20:00 16:20:00 PATRICK phoebe [facility] 2021-08-07 2021-08-07 Emergency CHASTITY Clements [facility] [id number] [facility] 09:36:00 12:55:00 Olga 19 [facility] 2021-08-01 2021-08-02 Emergency [facility] [id number] Univers 22:00:00 01:17:00 LEANNE melo [facility] 2021-08-01 2021-08-02 Emergency [facility] 1.2.053.635 [id number] Univers 22:00:00 01:17:00 Leanne GAONA 350.1.13.10 i ty of [place] 4.2.7.2.686 [facility] [id number] [address] 2021-06-28 2021-06-28 Outpatient R SIRISHA [facility] [id number] Univers 17:30:00 17:30:00 SHARA phoebe [facility] 2021-06-22 2021-06-22 Letter REHAN Chaves 1.2.840.114 [id number] Univers 00:00:00 00:00:00 (Out) Eve LEE 350.1.13.10 it y of [facility] 4.2.7.2.686 Jacques as [phone] [facility] 019 [place] 2021-06-22 2021-06-22 Refill [facility] 1.2.840.114 [id number] Univers 00:00:00 00:00:00 Rania HEALTH 350.1.13.10 it y of [place] 4.2.7.2.686 Jacques as SUE?BLEA [phone] [address] MEDICAL OFFICE [facility] 2021-06-21 2021-06-21 Outpatient R TERE [facility] [id number] Univers 11:00:00 12:14:12 PATRICK [facility] 2021-06-21 2021-06-21 Urgent [facility] 1.2.840.114 [id number] Univers 11:00:00 11:20:00 Care Mohan Ameena HEALTH 350.1.13.10 ity of [place] 4.2.7.2.686 Jacques as SUE?BLEA [phone] [address] MEDICAL OFFICE [facility] 2021-06-21 2021-06-21 Telephone [facility] 1.2.840.114 [id number] Univers 00:00:00 00:00:00 Rania HEALTH 350.1.13.10 it y of [place] 4.2.7.2.686 Jacques as SUE?BLEA [id number] [address] MEDICAL OFFICE [facility] 2021-06-21 2021-06-21 Letter Doctor VAN 1.2.840.114 [id number] Univers 00:00:00 00:00:00 (Out) ErinssROSA schmidt 350.1.13.10 ity of [facility] 4.2.7.2.686 Jacques as [id number] [facility] felipa [facility] 2021-05-30 2021-05-30 (TEL) STLMLC STLMLC [id number] Co mmon 00:00:00 00:00:00 [facility] 2021-05-29 2021-05-29 (TEL) STLMLC STLMLC [id number] Co mmon 00:00:00 00:00:00 [facility] 2021-04-26 2021-04-26 (TEL) STLMLC STLMLC [id number] Co mmon 00:00:00 00:00:00 [facility] 2021-04-23 2021-04-23 UNSPECIFIE 1 JANIA STL EMD [id number] [facility] [address] 00:46:00 02:08:[address] [facility] ABDOMINAL Memori a PAIN l (LUF/LI V/SA) 2021-04-23 2021-04-23 Inpatient [facility] fb ce73-[address] [facility] [address] 00:00:00 00:00:00 MAZON v44-0e67-3 [facility], 2y5-zr3tq9 Memor ia [address] a89c0d l [place] (LUF/LI A[address], V/SA) [place] [address] 2021-04-23 2021-04-23 Inpatient [facility] 6aab 1878-[address] 00:00:00 00:00:00 MAZON n2x-4653-6 [facility], [id number] Memor ia [address] 822c23 l [place] (LUF/LI A[address], V/[place]) [place] [address] 2021-03-24 2021-03-24 ANXIETY 1 COTTON, [facility] [id number] [facility] [address] 10:25:00 12:27:00 JENNA REHAN [facility] UNSPECIFIE [place], Memor ia D [address] (LUF/LI A[address], V/SA) [place] [address] 2021-03-24 2021-03-24 Inpatient [facility] f871 cc2a-c [facility] 00:[facility]:00 00:00:00 MAZON 9aa-405b-9 [facility], [id number] Memor ia [address] cf90e3 l [place] (LUF/LI A[address], V/[place]) [place] [address] 2021-03-24 2021-03-24 Inpatient [facility] e945 ff19-c [facility] 00:00:00 00:00:00 MAZON v94-9h18-w [facility], 88b-033ffa Memor ia [address] 683da2 l [place] ([address]F/LI A[address], V/SA) [place] [address] 2021-03-23 2021-03-23 Orders Nofies, 1.2.840.1 [id number] Univers 00:00:00 00:00:00 Only Viktoriya Charlton 13070.1.1 ity of 3.412.2.7 [place] .3.095920 MD .8 [facility] 2021-03-10 2021-03-10 UTI SITE E [facility], [facility] [id number] [facility] [address] 10:29:00 13:50:00 NOT [facility], Memori a [address] [place] [address], V/SA) [facility] [place] [address] 2021-03-10 2021-03-10 Inpatient [facility] 16e7 6598-b [facility] 00:00:00 00:00:00 MAZON j8y-8944-3 [facility], s4w-040u1s Memor ia [address] 8ebb0b l [place] ([address]F/LI A[address], V/[place]) [place] [address] 2021-03-10 2021-03-10 Inpatient [facility] 518c 3339-c [facility] 00:00:00 00:00:00 MAZON t47-7ur3-0 [facility], o8s-4yq69x Memor ia [address] f904e5 l [place] (LUF/LI A[address], V/SA) [place] [address] 2021-02-23 2021-02-23 RIGHT E [facility] [id number] 08:15:00 12:44:00 LOWER [facility] PAIN [address] [place] ([address]F/LI A[address], V/SA) [place], [place] [address] 2021-02-23 2021-02-23 Inpatient [facility] 89b5 d1de-[address] 00:00:00 00:00:00 MAZON 09f-406d-9 [facility], 74d-24f9de Memor ia [address] e8fcf1 l [place] (LUF/LI A[address], V/[place]) [place] [address] 2021-02-23 2021-02-23 Inpatient [facility] 8500 e20f-[address] 00:00:00 00:00:00 MAZON 1ef-425c-a [facility], 5af-64i760 Memor ia [address] 1655de l [place] ([address]F/LI A[address], V/[place]) [place] [address] 2021-01-10 2021-01-10 CALCULUS E JANIA, [facility] [id number] [facility] [address] 00:21:00 03:06:00 OF KIDNEY SETH [facility] [address] ([address], V/SA) [place], [place] [address] 2021-01-10 2021-01-10 Inpatient [facility] ff0d 2205-c [facility] 00:00:00 00:00:00 MAZON e40-7g85-g [facility], 72a-11f6e9 Memor ia [address] 3fb6a8 l [place] (LUF/LI A[address], V/[place]) [place] [address] 2021-01-10 2021-01-10 Inpatient [facility] deee fe83-e [facility] 00:[facility]:00 00:00:00 MAZON ff6-4d87-9 [facility], 32e-3f75c9 Memor ia [address] e09ed4 l [place] ([address]F/LI A[address], V/[place]) [place] [address] 2020-12-27 2020-12-27 Emergency [facility] Zarina [id number] Mode 00:00:00 00:00:[address] 2020-12-22 2020-12-22 Outpatient 3 LONI MURILLO TIC [id number] 09:00:00 09:00:[address] [facility] Memoria l (LUF/LI V/SA) 2020-12-13 2020-12-13 Emergency EM [facility] [id number] [facility] 01:53:00 06:36:[address] [facility] 2020-12-12 2020-12-12 RIGHT Jake COTTON, [facility] [address] 12:33:00 14:00:00 [facility], Memoria PAIN [address] ([address]F/LI A[address], V/SA) [place] [address] 2020-12-12 2020-12-12 Inpatient [facility] e2c0 cb47-b [facility] 00:00:00 00:00:00 MAZON 82f-45d0-a [facility], 13e-0f9f6d Memor ia [address] o2q650 l [place] (LUF/LI AVE, V/SA) [facility] [place] [address] 2020-12-12 2020-12-12 Inpatient [facility] 43ed f7fe-[address] [facility] [address] 00:00:00 00:00:00 MAZON n85-21sz-k [facility], 316-4i518f Memor ia [address] 70ade3 l [place] ([address]F/LI A[address], V/[place]) [place] [address] 2020-12-08 2020-12-08 UNSPECIFLUC SOTOMAYOR, [facility] [id number] 09:44:00 12:26:00 D WYATT [facility], Memori a PAIN [address] (LUF/LI A[address], V/SA) [place] [address] 2020-12-08 2020-12-08 Inpatient [facility] 6a3f a794-a [facility] 00:00:00 00:00:00 MAZON 6b5-0k51-1 Gutierrez [facility], 8j7-2q8209 Memor ia [address] 9973a7 l [place] ([address]F/[address], V/SA) [place] [address] 2020-11-25 2020-11-25 UNSPECIFIE [facility] [id number] 00:13:00 00:30:00 D [facility] ABDOMINAL [place], Memori a PAIN [address] (LUF/LI A[address], V/SA) [place] [address] 2020-11-25 2020-11-25 Inpatient [facility] 3041 db6a-[address] 00:00:00 00:00:00 MAZON fb6-4754-b [facility], s0g-zzs715 Memor ia [address] 841f4f l [place] (LUF/LI A[address], V/[place]) [place] [address] 2020-11-25 2020-11-25 Inpatient [facility] a3eb ed11-a [facility] 00:00:00 00:00:00 MAZON k45-5fr2-9 [facility], [id number] Memor ia [address] ea5dda l [place] (LUF/LI A[address], V/SA) [place] [address] 2020-11-21 2020-11-21 ENDOMETRIO 1 [facility] [id number] 07:14:00 09:53:00 SIS [facility] UNSPECIFIE [place], Memor ia D [address] ([address]F/LI A[address], V/SA) [place] [address] 2020-11-21 2020-11-21 Inpatient [facility] 90f0 278b-[address] 00:00:00 00:00:00 MAZON 7e4-24uv-0 [facility], 4bb-5eeded Memor ia [address] 4d2649 l [place] ([address]F/LI A[address], V/[place]) [place] [address] 2020-11-21 2020-11-21 Inpatient [facility] 3b21 9c7a-[address] 00:00:00 00:00:00 MAZON 30a-405e-8 [facility], [id number] Memor ia [address] 3040c4 l [place] ([address]F/LI [address], V/SA) [place], [place] [address] 2020-11-14 2020-11-[address] YURYAntonia EMD [id number] 09:27:00 14:37:[address] [facility] WITHOUT Memoria BLEEDING l (LUF/LI V/SA) 2020-11-14 2020-11-14 Inpatient [facility] d4fe d3e2-[address] 00:00:00 00:00:00 MAZON 3cf-4b7a-a [facility], 2ad-d46ca7 Memor ia [address] 2d56cc l [place] ([address]F/LI [address], V/SA) [place] [address] 2020-11-14 2020-11-14 Inpatient [facility] 324e 65b9-b [facility] 00:00:00 00:00:00 MAZON 464-403c-8 [facility], [id number] Memor ia [address] k0334l l [place] ([address]F/LI A[address], V/SA) [place], [place] [address] 2020-11-08 2020-11-08 OTHER E YURY, [facility] 58658 [address] [facility] [address] 08:04:00 13:13:00 CHRONIC REHAN MAZON Isra [facility], Memoria [address] [place] ([address]F/LI [address], V/SA) [place] [address] 2020-11-08 2020-11-08 Inpatient [facility] 8079 b52c-c [facility] 00:00:00 00:00:00 MAZON ed8-4ae3-8 [facility], 758-4cr298 Memor ia [address] cf6d84 l [place] ([address]F/[address], V/[place]) [place] [address] 2020-11-08 2020-11-08 Inpatient [facility] 0f07 dc59-[address] 00:00:00 00:00:00 MAZON 292-4184-b [facility], 8ff-44cd4a Memor ia [address] d1bfd4 l [place] ([address]F/LI A[address], V/SA) [place] [address] 2020-11-08 2020-11-08 Inpatient [facility] 40b4 e14c-[address] 00:00:00 00:00:00 MAZON 784-40e4-9 [facility], [id number] Memor ia [address] 29ea9a l [place] (LUF/LI A[address], V/SA) [place] [address] 2020-11-01 2020-11-01 NAUSEA E WANDA, [facility] [address] 00:27:00 03:55:00 WITH CLEMENT [facility] UNSPECIFIE [address] D [place] (LUF/LI AVE, V/SA) [place] [address] 2020-11-01 2020-11-01 Inpatient [facility] 1ec3 64c1-c [facility] 00:00:00 00:00:00 MAZON f63-8vfp-e [facility], 85a-s8073s Memor ia [address] n6255n l [place] ([address]F/LI A[address], V/SA) [place] [address] 2020-11-01 2020-11-01 Inpatient [facility] 79c0 b023-[address] 00:00:00 00:00:00 MAZON 4s5-437a-d [facility], [id number]-pu9614 Memor ia [address] 783eec l [place] ([address]F/LI A[address], V/SA) [facility] [place] [address] 2020-10-04 2020-10-05 OTHER E RODRICK, [facility] [address] 23:32:00 01:00:00 CHRONIC [facility] [address] [place] [address], V/SA) [place] [address] 2020-10-04 2020-10-04 Inpatient [facility] b016 f3f5-a [facility] 00:00:00 00:00:00 MAZON 1c2-4l8z-m [facility], 67e-1b3642 Memor ia [address] bb93d3 l [place] ([address]F/LI A[address], V/SA) [place] [address] 2020-10-04 2020-10-04 Inpatient [facility] ea96 0c7a-[address] 00:00:00 00:00:00 MAZON 25c-4997-b [facility], [id number]-[id number] Memor ia [address] 1f27e6 l [place] ([address]F/LI A[address], V/SA) [place] [address] 2020-09-18 2020-09-18 OTHER E [facility] [id number] 01:00:00 04:44:00 CHRONIC [facility], Memoria [address] [place] ([address]F/LI [address], V/SA) [place] [address] 2020-09-18 2020-09-18 Inpatient [facility] b80a 7ee5-[address] 00:00:00 00:00:00 MAZON 5y6-849m-7 [facility], [id number] Memor ia [address] d94954 l [place] ([address]F/LI A[address], V/SA) [place] [address] 2020-09-18 2020-09-18 Inpatient [facility] 1a33 0198-a [facility] 00:00:00 00:00:00 MAZON 921-44cf-8 [facility], [id number] Memor ia [address] 426763 l [place] ([address]F/LI A[address], V/SA) [place] [address] 2020-09-12 2020-09-12 ENDOMETRIO E KOSCIUK, [facility] [id number] [facility] 00:46:00 02:38:00 SIS JUAN [facility] UNSPECIFIE [place], Memor ia D [address] ([address]F/LI A[address], V/SA) [place] [address] 2020-09-12 2020-09-12 Inpatient [facility] 726d 153b-a [facility] 00:00:00 00:00:00 MAZON q5g-2083-2 [facility], 9g0-1ltf28 Memor ia [address] 2913af l [place] ([address], V/SA) [place], [place] [address] 2020-09-12 2020-09-12 Inpatient [facility] 9a2d b59c-c [facility] 00:00:00 00:00:00 MAZON 607-4f36-8 [facility], 3y3-8513cs Memor ia [address] 655cce l [place] ([address], V/[place]) [place] [address] 2020-08-22 2020-08-22 OTHER E RODRICK, [facility] [id number] 01:13:00 03:24:00 CHRONIC [facility], Memoria [address], V/SA) [place] [address] 2020-08-22 2020-08-22 Inpatient [facility] [id number] [id number] [facility] 00:00:00 00:00:00 MAZON [id number] [facility], [id number] Memor ia [id number] [address] ([address], V/SA) [place], [place] [address] 2020-08-22 2020-08-22 Inpatient [facility] [id number] [facility] 00:00:00 MAZON [id number] [facility], [id number] Memor ia [id number], V/SA) [place] [address] 2020-08-06 2020-08-06 Inpatient Jake MENSAH, [facility] [id number] [facility] 01:21:00 03:35:00 [facility] [address], V/SA) [place] [address] 2020-08-06 2020-08-06 [facility]patient [facility] [id number] [facility]:00 00:00:00 MAZON [id number] [facility], [id number] Memor ia [id number] [address], V/SA) [place] [address] 2020-07-19 2020-07-19 RIGHT Jake COTTON, [facility] [place] [id number] [facility] [address] 07:50:00 11:20:00 [facility] [address], V/SA) [place] [address] 2020-07-19 2020-07-19 Inpatient [facility] [id number] [facility] 00:[facility]:00 00:00:00 MAZON [id number] [facility], [id number] Memor ia [address] [id number], V/SA) [place] [address] 2020-07-19 2020-07-19 Inpatient [facility] [id number] [facility] [address] 00:00:00 00:00:00 MAZON [id number] [facility], [id number] Memor ia [address] [id number] [address], V/SA) [place] [address] 2020-07-05 2020-07-05 OTHER E RODRICK, [facility] [id number] [facility] [address] 02:42:00 05:00:00 [facility] [address], V/SA) [place] [address] 2020-07-05 2020-07-05 Inpatient [facility] [id number] [facility] 00:[facility]:00 00:00:00 MAZON [id number] [facility], [id number] Memor ia [address] [id number] [address], V/SA) [place] [address] 2020-07-05 2020-07-05 Inpatient [facility] c54b [id number] [facility]:00 00:00:00 MAZON [id number] [facility], [id number] Memor ia [address] [id number], V/SA) [place] [address] 2020-06-10 2020-06-10 (TEL) STLMLC STLMLC [id number] Co mmon 00:00:00 00:00:00 [facility] 2020-06-07 2020-06-07 Inpatient 1 YURY, [facility] [id number] [facility] [address] 12:56:00 19:04:00 [facility] [address] V[address]) [place] [address] 2020-06-07 2020-06-07 Inpatient [facility] [place] [id number] [facility] 00:00:00 00:00:00 MAZON [id number] [facility], [id number] Memor ia [id number] [address], V/SA) [place] [address] 2020-05-31 2020-05-31 Inpatient E YURY, [facility] [id number] [facility] [address] 09:31:00 14:13:00 [facility] [address], V/SA) [place] [address] 2020-05-10 2020-05-10 Outpatient STLMLC STLMLC [id number] Common 00:00:00 00:00:00 [facility] 2020-05-09 2020-05-09 Outpatient STLMLC STLMLC [id number] Common 00:00:00 00:00:00 [facility] 2020-05-05 2020-05-05 Outpatient STLMLC STLMLC [id number] Common 00:00:00 00:00:00 [facility] 2020-05-02 2020-05-02 Outpatient STLMLC STLMLC [id number] Common 00:00:00 00:00:00 [facility] 2020-05-02 2020-05-02 Outpatient STLMLC STLMLC [id number] Common 00:00:00 00:00:00 [facility] 2020-04-29 2020-04-29 Outpatient STLMLC STLMLC [id number] Common 00:00:00 00:00:00 [facility] 2020-04-25 2020-04-25 LEFT LOWER E [facility] [id number] 16:46:00 21:30:00 QU[facility]RANT [facility] [address], V/SA) [place] [address] 2020-04-22 2020-04-22 Outpatient STLMLC STLMLC [id number] Common 00:00:00 00:00:00 [facility] 2020-04-20 2020-04-20 PROC&TX [facility] [id number] 15:39:00 16:03:00 NOT [facility] CARRIED [facility] OUT PT [address], V/SA) [place] [address] 2020-04-20 2020-04-20 Outpatient STLMLC STLMLC [id number] Common 00:00:00 00:00:00 Community [facility] 2020-04-20 2020-04-20 Outpatient STLMLC STLMLC [id number] Common 00:00:00 00:00:00 [facility] 2020-04-15 2020-04-15 Outpatient STLMLC STLMLC [id number] Common 00:00:00 00:00:00 [facility] 2020-04-13 2020-04-13 Outpatient STLMLC STLMLC [id number] Common 00:00:00 00:00:00 [facility] 2020-04-12 2020-04-12 Outpatient STLMLC STLMLC [id number] Common 00:00:00 00:00:00 [facility] 2020-04-11 2020-04-11 Outpatient STLMLC STLMLC [id number] Common 00:00:00 00:00:00 [facility] 2020-04-08 2020-04-08 Outpatient STLMLC STLMLC [id number] Common 00:00:00 00:00:00 [facility] 2020-04-06 2020-04-06 Outpatient STLMLC STLMLC [id number] Common 00:00:00 00:00:00 [facility] 2020-04-04 2020-04-04 Outpatient STLMLC STLMLC [id number] Common 00:00:00 00:00:00 [facility] 2020-03-31 2020-03-31 Outpatient STLMLC STLMLC [id number] Common 00:00:00 00:00:00 [facility] 2020-03-29 2020-03-29 Outpatient GEOVANI BLAS [facility] [id number] MD 00:00:00 00:00:00 PRAVEEN payton 2020-03-29 2020-03-29 Outpatient STLMLC STLMLC [id number] Common 00:00:00 00:00:00 [facility] 2020-03-28 2020-03-28 Outpatient STLMLC STLMLC [id number] Common 00:00:00 00:00:00 [facility] 2020-03-22 2020-03-22 Outpatient STLMLC STLMLC [id number] Common 00:00:00 00:00:00 [facility] 2020-03-21 2020-03-21 Outpatient STLMLC STLMLC [id number] Common 00:00:00 00:00:00 [facility] 2020-03-20 2020-03-20 FEDE COTTON, [facility] [id number] 17:08:00 22:56:00 ABDOMINAL REHAN [facility] PAIN [facility] UNSPECIFIE [address], V/SA) JULIÁN ROSA [address] 2020-03-14 2020-03-17 CELLULITIS E TRMAYA, [facility] [id number] 14:54:00 11:30:00 OF SIKH MAZON Luke s ABDOM[place]AL [place], [facility] a WALL [address] ([address]F/LI A[address], V/SA) [place]ULIÁ[place] [address] 2020-03-03 2020-03-03 Outpatient [facility] [id number] Common 13:33:00 13:33:00 [facility] 2020-03-02 2020-03-02 FE RYAN WOLFE, [facility] [id number] [facility] [address] 05:58:00 15:35:00 PERITON LIZBETH [facility] POSTINFECT [address] ([address]F/LI [address], V/SA) [facility] [place] [address] 2020-03-02 2020-03-02 [facility] [id number] Common 00:00:00 00:00:00 [facility] 2020-03-01 2020-03-01 Outpatient [facility] [id number] Common 09:15:00 09:15:00 [facility] 2020-02-29 2020-02-29 Outpatient [facility] [id number] Common 09:30:00 09:30:00 [facility] 2020-02-25 2020-02-27 LOWER E YURY, [facility] [place] [id number] 13:21:00 12:09:00 [facility] UNSPECIFIE [address] ([address]F/LI [address], V/SA) [place] [address] 2020-02-25 2020-02-25 UNSPECIFIE E RODRICK, [facility] [id number] [facility] 00:40:00 05:00:00 D JUAN [facility] a PAIN [address] ([address]F/LI [address], V/SA) [place] [address] 2020-01-25 2020-01-25 LOW BACK 1 COTTON, [facility] [id number] 11:28:00 13:15:00 PAIN REHAN [facility] [address], V/SA) [place] [address] 2020-01-18 2020-01-18 Outpatient [facility] [id number] Common 11:45:00 11:45:00 [facility] 2019-12-09 2019-12-09 OTHER E [facility] [id number] 03:03:00 05:08:00 CHRONIC MAZON [facility] [place] [address] ([address]/LI [address], V/SA) [place] [address] 2019-11-24 2019-11-24 UNSPECIFIE E [facility] [id number] 00:31:00 05:30:[address] [facility] ABDOMINAL [place], Memori a PAIN [address] ([address]/LI [address], V/SA) [place] [address] 2019-10-07 2019-10-07 RIGHT 1 COTTON, [facility] [place] [id number] 20:35:00 23:10:00 LOWER [facility] QU[facility]ANT [place] [address] ([address]/LI [address], V/SA) [place] [address] 2019-09-20 2019-09-20 RIGHT 1 YURY, [facility] [place] [id number] 00:33:00 04:23:00 LOWER [facility] [place] [address] ([address]/LI [address], V/SA) [place] [address] 2019-08-17 2019-08-17 UNSPECIFIE 1 TRUX, [facility] [id number] 02:18:00 04:45:00 D SIKH MAZON Luke s ABDOMINAL [place], Mem[facility] a PAIN [address] ([address]/LI [address], V/SA) [place] [address] 2019-04-22 2019-04-22 Outpatient [facility] [id number] Common 12:03:00 12:03:00 Clinics [facility] 2019-04-14 2019-04-14 Outpatient [facility] [id number] Common 16:12:00 16:12:00 Clinics [facility] 2019-04-06 2019-04-06 Outpatient [facility] [id number] Common 12:16:00 12:16:00 [facility] 2019-03-31 2019-03-31 Outpatient [facility] [id number] Common 14:00:00 14:00:00 Clinics [facility] 2018-12-07 2018-12-07 UNSPECIFIE 1 QUINTIN BRITO [facility] [id number] [facility] [address] 01:06:00 04:45:00 D OVARIAN MAZON Luke s CYST RIGHT [facility] ia SIDE [address] ([address]/LI [address], V/SA) [place] [address] 2018-10-29 2018-10-29 N-PRSS CHR BLAJAYLYNTAD, [facility] [id number] [facility] [address] 06:59:00 23:59:00 [facility]IN [facility] [address] ([address], V/SA) [place] [address] 2018-10-22 2018-10-22 N-PRSS CHR BLAKESTAD, [facility] [id number] [facility] [address] 07:20:00 23:59:00 [facility]IN [facility] [address] ([address], V/SA) [place] [address] 2018-10-15 2018-10-15 N-PRSS CHR O BLAKESTAD, [facility] [id number] [facility] [address] 07:08:00 23:59:00 [facility]CR SKIN MIKY [facility] [address] ([address], V/SA) [place] [address] 2018-09-30 2018-10-01 INFCT FOL 1 SHABNAM, [facility] [id number] [facility] [address] 18:46:00 01:05:00 PRC SUPF DIMAS MAZON [facility] SIT INIT [address] ([address], V/SA) [place] [address] 2018-09-01 2018-09-01 OTH 1 WANDA, [facility] [place] [id number] [facility] 09:12:00 14:00:00 NONINFL CLEMENT [facility] D/O OVARY [place], Memori a TUBE&BRD [address] (LUF/LI AVE, V/SA) [place] [address] 2018-05-13 2018-05-13 Inpatient 1 WANDA, [facility] [place] [id number] 10:52:00 13:46:00 CLEMENT [facility], Memoria [address] ([address]/LI [address], V/SA) [place] [address] 2017-12-24 2017-12-24 UNSPECIFIE 1 DARYL QUINTIN [facility] [place] [id number] [facility] 07:51:00 13:52:00 D OVARIAN [facility] s CYST RIGHT [place] SIDE [address] ([address]F/LI [address], V/SA) [place] [address] 2017-06-20 2017-06-21 HYDRONPHRO 1 RODRICK, [facility] [place] [id number] 23:01:00 03:55:00 S JUAN [facility] RENL&URETR [place] [facility] L CALCUL [address] ([address]F/LI A[address], V/SA) [place] [address] 2017-05-13 2017-05-13 OTHER 3 MERLE, [facility] [place] [id number] 15:40:00 23:59:00 FATIGUE ASA [facility] [address] ([address], V/SA) [place] [address] Results Test Description Test Time Test Comments Results Result Comments Source COMP. METABOLIC PANEL (57340) 2022-02-19 14:56:05 Test Item Value Reference Range Interpretation Comme nts NA (test code = 7408321528) 137 mmol/L 135-145 K (test code = 4752238955) 4.2 mmol/L 3.5-5 CL (test code = 1804443301) 108 mmol/L 98-108 CO2 TOTAL (test code = 3748075537) 19 mmol/L 23-31 L AGAP (test code = 8049843128) 2-16 BUN (test code = 3986627073) 14 mg/dL 7-23 GLUCOSE (test code = 9282435831) 133 mg/dL 70-110 H CREATININE (test code = 0.56 mg/dL 0.5-1.04 0914011530) TOTAL BILI (test code = 0.4 mg/dL 0.1-1.0 0250822859) CALCIUM (test code = 8120484200) 8.9 mg/dL 8.6-10.6 T PROTEIN (test code = 6825723444) 6.5 g/dL 6.3-8.2 ALBUMIN (test code = 3062126699) 4.0 g/dL 3.5-5 ALK PHOS (test code = 7557004378) 84 U/L 34-122 ALTv (test code = 1742-6) 23 U/L 5-35 AST(SGOT) (test code = 9134184918) 24 U/L 13-40 eGFR (test code = 8084251902) mL/min/1.73m2 RENZO (test code = RENZO) Association [...] tests). Lab Interpretation (test code = Abnormal 92820-3) [facility] 14[facility]55:44 Test Item Value Reference Range Interpretation Comments LIPASE (test code = 7867278951) 81 U/L 0-220 Lab Interpretation (test code = Normal 88672-6) [facility] WITH [id number] 14:36:26 Test Item Value Reference Range Interpretation Comments WBC (test code = See_Comment [Automated 0890-2) message] The sy stem which generated this result transmitted reference range : 4.30 - 11.10 10*3/?L. The reference range was not used to interpret this result as normal/abnormal . RBC (test code = See_Comment [Automated 369-8) message] The sy stem which generated this [...] RDW-SD (test code = 43.9 fL 39-49.9 91570-0) RDW-CV (test code = 13.7 % 12-15.5 788-0) PLT (test code = See_Comment [Automated 777-3) message] The sy stem which generated this result transmitted reference range : 166 - 358 10*3/ ?L. The reference r bruce was not used to interpret this result as normal/abnormal . MPV (test code = 8.5 fL 9.5-12.9 L 90125-8) NRBC/100 WBC (test See_Comment [Automat ed code = 0752344285) message] The system which generated this result transmitted reference range : 0.0 - 10.0 /100 WBCs. The refer ence range was not u sed to interpret th is result as normal/abnormal . NRBC x10^3 (test code See_Comment [Auto mated = 1924733326) message] The s ystem which generated this result transmitted reference range : 10*3/?L. The reference range was not used to interpret this result as normal/abnormal . GRAN MAT (NEUT) % 58.7 % (test code = 770-8) IMM GRAN % (test code 1.10 % = 8384454228) LYMPH % (test code = 31.6 % 736-9) MONO % (test code = 6.8 % 5905-5) EOS % (test code = 1.4 % 713-8) BASO % (test code = 0.4 % 706-2) GRAN MAT x10^3(ANC) 3.30 10*3/uL 1.88-7.09 (test code = 3419116054) IMM GRAN x10^3 (test 0.06 10*3/uL 0-0.06 code = 0383728196) LYMPH x10^3 (test code 1.77 10*3/uL 1.32-3.29 = 731-0) MONO x10^3 (test code 0.38 10*3/uL 0.33-0.92 = 742-7) EOS x10^3 (test code = 0.08 10*3/uL 0.03-0.39 711-2) BASO x10^3 (test code 0.01-0.07 = 704-7) Lab Interpretation Abnormal (test code = 26440-1) [facility] [id number] 22:58:14 Test Item Value Reference Range Interpretation Comments POCT Molecular FluA (test code = Negative Negative 40818-3) POCT Molecular FluB (test code = Negative Negative 02273-5) Lab Interpretation (test code = Normal 80872-6) [facility]andHEPATIC FUNCTION PANEL (LIVER)2021-10-16 13:57:00 Test Item Value [...] (test code = 0.2 mg/dl 0.0-1.1 IBIL) [id number] 13:57:00 Test Item Value Reference Range Interpretation Comments Lipase (test code = LIPA) 114 U/L 73-393 [facility], [id number] 13:57:00 Test Item Value Reference Range Interpretation Comments Amylase (test code = AMYL) 51 U/L 25-115 [facility] CHEM [id number] 22:45:00 Test Item Value Reference Range Interpretation [...] code = CO2) 22.1 mmol/l 24.0-29.0 L [facility] CBC WITH AUTO [id number] 22:43:00 Test Item Value Reference Range Interpretation [...] (test code = IG%) 0.2 % 0.0-0.4 STLMLHEPATIC FUNCTION [id number] 13:03:00 Test Item Value Reference Range Interpretation [...] 96 Unit/L 45-117 N code = ALKP) [id number] 13:03:00 Test Item Value Reference Range Interpretation Comments LIPASE (test code = LIP) 83 Unit/L 114-286 L BASIC METABOLIC [id number] 13:03:00 Test Item Value Reference Range Interpretation [...] 8.5-10.1 N UA RFLX MICR CULT IF [id number] 12:44:00 Test Item Value Reference Range Interpretation [...] OF URINE: CLEAN CATCH- CT ABD PELVIS [id number] 12:27:00 [facility] : 1985 Sex: F Name: LAUREN BETH [facility] : 1985 Age/S: 36 / F [address] Unit #: [id number]: Julián Holcomb [address] Phys: Marco Hilton NP Acct: [id number] Dis Date: Status: REG ER PHONE #: [phone] Exam Date: 08/07/2021 1223 FAX #: Reason: LLQ ABD PAIN EXAMS: CPT: [id number] CT ABD PELVIS W/CONT 50000 EXAM: CT ABDOMEN AND PELVIS WITH CONTRAST. [...] BETH : 1985 Age/S: 36 / F [address] Unit #: [id number] Loc: [place] [address] Phys: Marco Hilton NP Acct: [id number] Dis Date: Status: REG ER PHONE #: [phone] Exam Date: 08/07/2021 1223 FAX #: Reason: LLQ ABD PAIN EXAMS: CPT: [id number] CT ABD PELVIS W/CONT 35318 <Continued> at 1227 Reported and signed by: Alma Cartwright M.D. CC: Olga Clements DO; Marco Hilton NP Technologist:Elmer Laguna, RT(R) CTDI: DLP: Trnscb Date/Time: 08/07/2021 (1227) [email or web address] Orig Print D/T: S: 08/07/2021 (7585) PAGE 2 Signed ReportCBC W/AUTO [id number] 12:23:00 Test Item Value Reference Range Interpretation [...] contact the [facility] at [phone]. [id number] 12:37:00 Test Item Value Reference Range Interpretation [...] 0.5-1.3 code = CREA) EGFR if >60 English (test code mL/min/1.73m\\ = EGFRAA) S\\2 EGFR if Non- >60 Estimate d Glomerular English (test code mL/min/1.73m\\ Filtrat ion Rate (eGFR) [...] and management of c hronic kidney failure. [facility] [id number] 12:11:00 Test Item Value Reference Range Interpretation [...] 24 hours after the clini felipa event. STLMLPT AND [id number] 12:09:00 Test Item Value Reference Range Interpretation Comments Protime (test code 9.5 seconds 9.5-12.1 = PT) INR (test code = 0.9 0.9-1.1 INR results are intended INR) ONLY to monitor Oral Anticoagulant t herapy in stablized patie nts. The INR Therapeutic Range is 2.0 - 3.0 Patie nts with a mechanical he art, the INR Range is 2. 5 - 3.5 [id number] 12:09:00 Test Item Value Reference Range Interpretation Comments aPTT (test code = PTT) 22.3 seconds 23.9-30.7 L [facility] CBC WITH AUTO [id number] 11:57:00 Test Item Value Reference Range Interpretation [...] (test code = IG%) 0.3 % 0.0-0.4 STLMLXR CHEST AP/PA 1 [id number] 11:33:32 [facility] (LUF/DAVID/SA)Name: LAUREN BETH : 1985 Sex: FProcedure: XR CHEST AP/PA 1 VIEWOrder Date: 03/24/2021 10:57 AMOrdering Provider: REHAN COTTONClinical Indication: [id number]: DyspneaComparison: September 30, 2018Findings:Cardiac size is normal.Pulmonary vasculature is normal.Mediastinal contour is normal.Aortic contour is normal.No acute infiltrates or effusions.There is no mass or pneumothorax.There is no evidence of active tuberculosis.There isno acute skeletal abnormality.Impression: Negative AP view of the chest.This final report was electronically signed by Dr Farzad Dewitt MD :28 AMDictated By: FARZAD DEWITTDate: :28STLMLCULTURE, [id number] 08:00:00Specimen: Urine SpecimensCollected: 03/10/2021 11:50 Status: Final Last Updated: 03/12/2021 08:00 CULTURE (Final) (Final) Very Few Mixed Body Gabriela Isolated No Pathogens IsolatedSTLMLURINALYSIS WITH MICROSCOPIC 2021-03-10 12:57:00 Test Item Value Reference Range Interpretation Comments Color (test code = Light-Yellow UCOLR) Clarity (test code = Cloudy UCLAR) Glucose (test code = NEGATIVE NEGATIVE N UGLUC) Bilirubin (test code NEGATIVE NEGATIVE N = UBILI) Ketones (test code = NEGATIVE NEGATIVE N UKET) Specific Egan 1.015 1.005-1.030 A (test code = USPGR) Blood (test code = NEGATIVE NEGATIVE N UBLD) PH (test code = UPH) 7.0 4.5-8.0 A Protein (test code = NEGATIVE NEGATIVE N UPROT) Urobilinogen (test 0.2 See_Comment N [Automat ed message] code = U UROB) The system [facility] generated this result transmit michael reference [...] SEEN A Epithelial (test code = NSE) [facility] LAB CBC WITH AUTO [id number] 12:10:00 Test Item Value Reference Range Interpretation [...] code = IG%) 0.8 % 0.0-0.4 H [facility] CHEM [id number] 12:08:00 Test Item Value Reference Range Interpretation [...] code = CREA) 0.5 mg/dl 0.6-1.3 L STLMLCULTURE, [id number] 08:26:00Specimen: Urine SpecimensCollected: 02/23/2021 08:35 Status: Final Last Updated: 02/24/2021 08:26 CULTURE (Final) (Final) Many Mixed Body Gabriela Isolated No Pathogens IsolatedSTLMLCT ABDOMEN/PELVIS W/[id number] 11:40:43 [facility] ([facility]/SA)Name: LAUREN BETH : 1985 Sex: FProcedure: CT ABDOMEN/PELVIS W/CONTRASTOrder date: 02/23/2021 10:08 AMOrdering Provider: REHAN Farrellinical Indication: [id number]: Right lower quadrant painComparison: November 14, 2020Technique: [...] MD 111:35 AMDictated By: WILEY VELÁZQUEZDate: 02/23/2021 11:[id number] 10:44:00 Test Item Value Reference Range Interpretation Comments Lipase (test code = LIPA) 86 U/L 73-393 STLMLURINALYSIS WITH [id number] 08:58:00 Test Item Value Reference Range Interpretation Comments Color (test code = Light-Yellow UCOLR) Clarity (test code = Clear UCLAR) Glucose (test code = NEGATIVE NEGATIVE N UGLUC) Bilirubin (test code NEGATIVE NEGATIVE N = UBILI) Ketones (test code = NEGATIVE NEGATIVE N UKET) Specific Egan 1.020 1.005-1.030 A (test code = USPGR) Blood (test code = NEGATIVE NEGATIVE N UBLD) PH (test code = UPH) 6.0 4.5-8.0 A Protein (test code = NEGATIVE NEGATIVE N UPROT) Urobilinogen (test 0.2 See_Comment N [Automat ed message] code = U UROB) The system [facility] generated this result transmit michael reference [...] 41-50 0-10 A (test code = SQEP) ST[facility]MLSTAT LAB CBC WITH AUTO [id number] 08:52:00 Test Item Value Reference Range Interpretation [...] (test code = IG%) 0.3 % 0.0-0.4 [facility] CHEM [id number] 08:52:00 Test Item Value Reference Range Interpretation [...] (test code = CREA) 0.6 mg/dl 0.6-1.3 [facility] CBC WITH AUTO [id number] 02:37:00 Test Item Value Reference Range Interpretation [...] A value of 55 was entered by [id number] on 01/10/2021 02:3 7 Lymphocytes (test 43 % 13-42 H No previou s value code = LYMPH) was reported. A value of 43 was entered by [id number] on 01/10/2021 02:3 7 Monocytes (test 1 % 4-14 L No previous value code = MONOS) was reported. A value of 1 was entered by [id number] on 01/10/2021 02:3 7 Basophils (test 1 % 0-1 No previous value code = BASO) was reported. A value of 1 was entered by [id number] on 01/10/2021 02:3 7 Normal Morphology Normal WBC RBC Normal RBC \\T\\ N No pre vious value (test code = NRCM) and Platelet WBC was repor michael. A Morphology Morphology,Normal value of N ormal WBC RBC and WBC RBC and Platelet Platelet Morphology Morphology was entered by [id number] on 01/10/2021 02:3 7 STLMLAMYLASE, [id number] 02:14:00 Test Item Value Reference Range Interpretation Comments Amylase (test code = AMYL) 46 U/L 25-115 [id number] 02:14:00 Test Item Value Reference Range Interpretation Comments Lipase (test code = LIPA) 115 U/L 73-393 STLMLURINALYSIS WITH [id number] 02:07:00 Test Item Value Reference Range Interpretation Comments Color (test code = Light-Yellow UCOLR) Clarity (test code = Cloudy UCLAR) Glucose (test code = NEGATIVE NEGATIVE N UGLUC) Bilirubin (test code NEGATIVE NEGATIVE N = UBILI) Ketones (test code = NEGATIVE NEGATIVE N UKET) Specific Egan 1.025 1.005-1.030 A (test code = USPGR) Blood (test code = NEGATIVE NEGATIVE N UBLD) PH (test code = UPH) 6.0 4.5-8.0 A Protein (test code = NEGATIVE NEGATIVE N UPROT) Urobilinogen (test 0.2 See_Comment N [Automat ed message] code = U UROB) The system [facility] generated this result transmit michael reference [...] SEEN A Epithelial (test code = NSE) [facility] CHEM [id number] 01:50:00 Test Item Value Reference Range Interpretation [...] (test code = CREA) 0.6 mg/dl 0.6-1.3 [facility] ABD PELVIS [id number] 03:46:00 [facility] 1985 Sex: F FAX: Annemarie Tesfaye [phone] [place]: St: REG Name: LAUREN BETH [facility] : 1985 Age/S: 35/F [address] Unit: [id number] Loc: [place] [address] 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 Acct: [id number] Dis Date: Status: REG ER PHONE #: [phone] Exam Date: 12/13/2020324 FAX #: [phone] Reason: DIFFUSE ABD PAIN WORSE RLQ, HX APPY, ROSE EXAMS: CPT CODE: [id number] CT ABD PELVIS W/CONT 42052 <Continued> CC: Annemarie Tesfaye NP Technologist: PAMELA KRISHNAMURTHY; Jessi SANCHEZ JR Trnscrd Dt/Tm: 12/13/2020 (0346) [email or web address] Orig Print D/T: S: 12/13/2020 (0469 PAGE 2 Signed ReportCOMPREHENSIVE METABOLIC [id number] 03:32:00 Test Item Value Reference Range Interpretation [...] U/L 38-126 N (test code = ALKP) [id number] 03:32:00 Test Item Value Reference Range Interpretation Comments LIPASE (test code = LIP) 82 U/L 23-300 N BEDSIDE [id number] 03:24:00 Test Item Value Reference Range Interpretation Comments BEDSIDE CREATININE (test code = 0.60 mg/dL 0.51-1.19 N CREATBED) CBC W/AUTO [id number] 03:14:00 Test Item Value Reference Range Interpretation [...] 0.0-0.1 N UA RFLX MICR CULT IF [id number] 02:59:00 Test Item Value Reference Range Interpretation [...] OF URINE: [facility] CBC WITH AUTO [id number] 15:12:00 Test Item Value Reference Range Interpretation [...] entered by [id number] 82 on 12/12/2020 15:12 [facility] CHEM [id number] 14:08:00 Test Item Value Reference Range Interpretation [...] code = CREA) 0.5 mg/dl 0.6-1.3 L [facility] URINALYSIS WITHOUT [id number] 12:08:00 Test Item Value Reference Range Interpretation Comments Color (test code = Light-Yellow UCOLR) Clarity (test code = Cloudy UCLAR) Glucose (test code = NEGATIVE NEGATIVE N UGLUC) Bilirubin (test code NEGATIVE NEGATIVE N = UBILI) Ketones (test code = NEGATIVE NEGATIVE N UKET) Specific Egan 1.015 1.005-1.030 A (test code = USPGR) Blood (test code = NEGATIVE NEGATIVE N UBLD) PH (test code = UPH) 7.0 4.5-8.0 A Protein (test code = NEGATIVE NEGATIVE N UPROT) Urobilinogen (test 0.2 See_Comment N [Automat ed message] code = U UROB) The system [email or web address] generated this result transmit michael reference range : 0.2. The refere nce range was not u sed to interpret th is result as normal/abnormal . Nitrite (test code = NEGATIVE NEGATIVE N UNITR) Leukocyte Esterase NEGATIVE NEGATIVE N (test code = ULEUK) [facility] ([facility]IVER)2020-11-21 08:43:00 Test Item Value [...] (test code = 0.4 mg/dl 0.0-1.1 IBIL) [facility] WITH [id number] 08:31:00 Test Item Value Reference Range Interpretation Comments Color (test code = Light-Yellow UCOLR) Clarity (test code = Clear UCLAR) Glucose (test code = NEGATIVE NEGATIVE N UGLUC) Bilirubin (test code NEGATIVE NEGATIVE N = UBILI) Ketones (test code = NEGATIVE NEGATIVE N UKET) Specific Egan 1.020 1.005-1.030 A (test code = USPGR) Blood (test code = NEGATIVE NEGATIVE N UBLD) PH (test code = UPH) 6.5 4.5-8.0 A Protein (test code = NEGATIVE NEGATIVE N UPROT) Urobilinogen (test 0.2 See_Comment N [Automat ed message] code = U UROB) The system [facility] generated this result transmit michael reference [...] TNTC 0-10 A (test code = SQEP) [facility] LAB CHEM [id number] 08:27:00 Test Item Value Reference Range Interpretation [...] code = CREA) 0.5 mg/dl 0.6-1.3 L [facility] LAB CBC WITH AUTO [id number] 08:26:00 Test Item Value Reference Range Interpretation [...] (test code = IG%) 0.4 % 0.0-0.4 [facility]-[place]XR ABDOMEN 2 VIEWS FLAT / [id number] 08:18:50[facility] ([facility]/[place])Name: LAUREN BETH : 1985 Sex: FProcedure: XR ABDOMEN 2 VIEWS FLAT / UPRIGHTOrder Date: 11/21/2020 7:43 AMOrdering Provider: REHAN Farrellinical Indication: [id number]: Abdominal painComparison: Nov 14 2020Findings:Bowel gas pattern is non-obstructive. No pneumoperitoneum.There is moderate volume stool burden.Surgical clips in the right upper quadrant of the abdomen.Impression:Nonobstructive bowel gas pattern.This final reportwas electronically signed by Dr Silver Benitez MD 18:13 AMDictated By: Maggie BENITEZte: 11/21/2020 08:13[facility]PELVIS W/O CONTRAST 2020-11-14 14:11:31 [facility] ([facility]/[place])Name: LAUREN BETH : 1985 Sex: FProcedure: CT ABDOMEN/PELVIS W/O CONTRASTOrder Date: 11/14/2020 1:22 PMOrdering Provider: BILLY ACOSTA .Clinical Indication: [id number]: Right flank painComparison: Renal ultrasound November 08, [...] MD 12:05 PMDictated By: FARZAD DEWITT.Date: 11/14/2020 14:05[facility] , [id number] 13:31:00 Test Item Value Reference Range Interpretation Comments (Urine) (test code = Negative PREGU) ONLY AVAILABLE 8A-12[facility] LAB CHEM [id number] 11:09:00 Test Item Value Reference Range Interpretation [...] code = CREA) 0.5 mg/dl 0.6-1.3 L [facility] LAB URINALYSIS WITHOUT [id number] 11:08:00 Test Item Value Reference Range Interpretation Comments Color (test code = Yellow Lt. Yellow A UCOLR) Clarity (test code = Clear UCLAR) Glucose (test code = Negative Negative N UGLUC) Bilirubin (test code Negative Negative N = UBILI) Ketones (test code = Negative Negative N UKET) Specific Egan 1.025 1.005-1.030 A (test code = USPGR) Blood (test code = Trace-intact Negative A UBLD) PH (test code = UPH) 6.0 4.5-8.0 A Protein (test code = Negative Negative N UPROT) Urobilinogen (test 0.2 See_Comment N [Automat ed message] code = U UROB) The system [employer] generated this result transmit michael reference range : 0.2. The refere nce range was not u sed to interpret th is result as normal/abnormal . Nitrite (test code = Negative Negative N UNITR) Leukocyte Esterase Negative Negative N (test code = ULEUK) [facility] LAB CBC WITH AUTO [id number] 11:05:00 Test Item Value Reference Range Interpretation [...] (test code = IG%) 0.4 % 0.0-0.4 [facility] HospitalCULTURE, [id number] 08:43:00Specimen: Urine SpecimensCollected: 11/08/2020 09:59 Status: Final Last Updated: 11/09/2020 08:43 CULTURE (Final) (Final) Few Mixed Body Gabriela Isolated No Pathogens [facility]olatedAsp[facility] RE[facility] & BLADDER (KIDNEYS)2020-11-08 12:00:28[facility] ([facility]/[place])Name: LAUREN BETH : 1985 Sex: FProcedure: US [...] Dr Silver Benitez MD 111:54 AMDictated By: Maggie BENITEZte: 11/08/2020 11:54[facility] WITH MICROSCOPIC 2020-11-08 10:58:00 Test Item Value Reference Range Interpretation Comments Color (test code = Yellow UCOLR) Clarity (test code = Clear UCLAR) Glucose (test code = NEGATIVE NEGATIVE N UGLUC) Bilirubin (test code = NEGATIVE NEGATIVE N UBILI) Ketones (test code = NEGATIVE NEGATIVE N UKET) Specific Egan (test 1.030 1.005-1.030 A code = USPGR) Blood (test code = NEGATIVE NEGATIVE N UBLD) PH (test code = UPH) 6.0 4.5-8.0 A Protein (test code = NEGATIVE NEGATIVE N UPROT) Urobilinogen (test code 0.2 See_Comment N [Au tomated message] = U UROB) The system [employer] generated this result transmitted ref erence range: [...] 51-74 0-10 A (test code = SQEP) [facility]CULT[facility], [id number] 08:13:00ER 17Specimen: Urine SpecimensCollected: 11/01/2020 01:10 Status: Final Last Updated: 11/02/2020 08:13 (1) ER 17 CULTURE (Final) (Final) Few Mixed Body Gabriela Isolated No Pathogens IsolatedAur[facility]-[place]kinXR ABD SERIES W/PA CXR 2020-11-01 03:48:37 [facility] ([facility]/[place])Name: LAUREN BETH : 1985 Sex: FPROCEDURE INFORMATION:Exam: [...] October13:48 AM CDT.Dictated By: FILIPPO RAMOSDate: 11/01/2020 03:48[facility]ONHEPATIC FUNCTION PANEL (LIVER)2020-11-01 02:14:00 Test Item Value [...] code = 0.1 mg/dl 0.0-1.1 IBIL) ER [address] [place] [address] LAB CHEM [id number] 01:57:00 Test Item Value Reference Range Interpretation [...] = CREA) 0.5 mg/dl 0.6-1.3 L ER [address] [place] [address]-[place]ufkinURINALYSIS WITH [id number] 01:56:00 Test Item Value Reference Range Interpretation Comments Color (test code = Light-Yellow UCOLR) Clarity (test code = Clear UCLAR) Glucose (test code = 50 NEGATIVE A UGLUC) Bilirubin (test code NEGATIVE NEGATIVE N = UBILI) Ketones (test code = NEGATIVE NEGATIVE N UKET) Specific Egan 1.025 1.005-1.030 A (test code = USPGR) Blood (test code = NEGATIVE NEGATIVE N UBLD) PH (test code = UPH) 6.0 4.5-8.0 A Protein (test code = TRACE NEGATIVE A UPROT) Urobilinogen (test 0.2 See_Comment N [Automat ed message] code = U UROB) The system [facility] generated this result transmit michael reference [...] 41-50 0-10 A (test code = SQEP) [address] LAB CBC WITH AUTO [id number] 01:55:00 Test Item Value Reference Range Interpretation [...] (test code = IG%) 0.4 % 0.0-0.4 [address] FUNCTION PANEL (LIVER)2020-10-05 01:26:00 Test Item Value [...] code = 0.1 mg/dl 0.0-1.1 IBIL) er [address] [place], [place] [address]kinLIPASE2021-04-07 01:26:00 Test Item Value Reference Range Interpretation Comments Lipase (test code = LIPA) 154 U/L 73-[address] LAB CHEM [id number] 01:15:00 Test Item Value Reference Range Interpretation [...] (test code = CREA) 0.6 mg/dl 0.6-1.[address] LAB , [id number] 01:14:00 Test Item Value Reference Range Interpretation Comments (Urine) (test code = Negative PREGU) [address] LAB CBC WITH AUTO [id number] 01:13:00 Test Item Value Reference Range Interpretation [...] = IG%) 0.9 % 0.0-0.4 H er [address] [place], [place] [address]Oztqxk-[id number] 04:21:00 Test Item Value Reference Range Interpretation Comments Lipase (test code = LIPA) 146 U/L 73-393 [facility] HospitalstefanieHEPATIC FUNCTION PANEL (LIVER)2020-09-18 04:21:00 Test Item Value [...] (test code = 0.1 mg/dl 0.0-1.1 IBIL) [facility] HospitalfstefanieAMYLASE, [id number] 04:21:00 Test Item Value Reference Range Interpretation Comments Amylase (test code = AMYL) 47 U/L 25-115 [facility] HospitalfkinURINALYSIS WITH [id number] 03:06:00 Test Item Value Reference Range Interpretation Comments Color (test code = Light-Yellow UCOLR) Clarity (test code = Clear UCLAR) Glucose (test code = NEGATIVE NEGATIVE N UGLUC) Bilirubin (test code NEGATIVE NEGATIVE N = UBILI) Ketones (test code = TRACE NEGATIVE A UKET) Specific Egan 1.025 1.005-1.030 A (test code = USPGR) Blood (test code = NEGATIVE NEGATIVE N UBLD) PH (test code = UPH) 5.5 4.5-8.0 A Protein (test code = NEGATIVE NEGATIVE N UPROT) Urobilinogen (test 0.2 See_Comment N [Automat ed message] code = U UROB) The system [email or web address] generated this result transmit michael reference range [...] SEEN A Epithelial (test code = NSE) [facility] LAB CHEM [id number] 02:51:00 Test Item Value Reference Range Interpretation [...] (test code = CREA) 0.6 mg/dl 0.6-1.3 [facility] LAB CBC WITH AUTO [id number] 02:50:00 Test Item Value Reference Range Interpretation [...] code = IG%) 0.5 % 0.0-0.4 H [facility]XR [facility]BD[facility]EN 1 VIEW (KUB)2020-09-12 01:51:21 [facility] ([facility]/[place])Name: LAUREN BETH : 1985 Sex: FPROCEDURE INFORMATION:Exam: [...] 1:50 AM CDT.Dictated By: CELESTINO ALLENDate: 09/12/2020 01:50[facility] CBC WITH AUTO [id number] 01:29:00 Test Item Value Reference Range Interpretation [...] (test code = IG%) 0.4 % 0.0-0.4 [facility] LAB CHEM [id number] 01:28:00 Test Item Value Reference Range Interpretation [...] (test code = CREA) 0.6 mg/dl 0.6-1.3 [facility] HospitalURINALYSIS WITH [id number] 03:04:00 Test Item Value Reference Range Interpretation Comments Color (test code = Yellow UCOLR) Clarity (test code = Clear UCLAR) Glucose (test code = 100 NEGATIVE A UGLUC) Bilirubin (test code = NEGATIVE NEGATIVE N UBILI) Ketones (test code = TRACE NEGATIVE A UKET) Specific Egan (test >=1.030 1.005-1.030 A code = USPGR) Blood (test code = NEGATIVE NEGATIVE N UBLD) PH (test code = UPH) 5.5 4.5-8.0 A Protein (test code = NEGATIVE NEGATIVE N UPROT) Urobilinogen (test code 0.2 See_Comment N [Au tomated message] = U UROB) The system [employer] generated this result transmitted ref erence range: [...] code = 3+ None Seen,Trace A UBACT) [facility]-[id number] 03:01:00 Test Item Value Reference Range Interpretation [...] ( 4 - SerumAlbumin)] EGFR if >60 English (test code mL/min/1.73m\\ = EGFRAA) S\\2 EGFR if Non- >60 Estimate d Glomerular English (test code mL/min/1.73m\\ Filtrat ion Rate (eGFR) [...] and management of c hronic kidney failure. [facility] CenterKsooal-[id number] 03:01:00 Test Item Value Reference Range Interpretation Comments Lipase (test code = LIPA) 145 U/L 73-393 [facility] LAB TEST, Serum Qualitative 2020-08-22 02:48:00 Test Item Value Reference Range Interpretation Comments (Serum) (test code = Negative PREGS) [facility] LAB CBC WITH AUTO [id number] 02:28:00 Test Item Value Reference Range Interpretation [...] code = IG%) 0.5 % 0.0-0.4 H [facility] HospitalHEPATIC FUNCTION PANEL (LIVER)2020-08-06 02:59:00 Test Item Value [...] code = 0.1 mg/dl 0.0-1.1 IBIL) ER [address] [place], [place] [address]Qfrmzw-[id number] 02:59:00 Test Item Value Reference Range Interpretation Comments Lipase (test code = LIPA) 167 U/L 73-[address] [place] [address]-fkinURINALYSIS WITH [id number] 02:48:00 Test Item Value Reference Range Interpretation Comments Color (test code = UCOLR) Yellow Clarity (test code = UCLAR) Clear Glucose (test code = UGLUC) NEGATIVE NEGATIVE N Bilirubin (test code = UBILI) NEGATIVE NEGATIVE N Ketones (test code = UKET) NEGATIVE NEGATIVE N Specific Egan (test code = >=1.030 1.005-1.030 A USPGR) [...] code = UBACT) 4+ None Seen,Trace A [address]-[place]/PELVIS W/O [id number] 02:34:52ER 16 R/O KIDNEY STONE [facility] ([facility]/[place])Name: LAUREN BETH : [id number] Sex: FPROCEDURE INFORMATION:Exam: CT Abdomen And Pelvis [...] 2:34 AM CDT.Dictated By: HOLLIS FERRERADate: 08/06/2020 02:34[facility] LAB CHEM 8 2020-08-06 02:29:00 Test Item Value Reference Range Interpretation [...] code = CREA) 0.4 mg/dl 0.6-1.[address] LAB CBC WITH AUTO [id number] 02:29:00 Test Item Value Reference Range Interpretation [...] = IG%) 0.7 % 0.0-0.4 H ER [address] [place], [place] [address]Joedyg-[id number] 09:31:00 Test Item Value Reference Range Interpretation Comments Lipase (test code = LIPA) 117 U/L 73-393 [facility] HospitalHEPATIC FUNCTION PANEL (LIVER)2020-07-19 09:31:00 Test Item Value [...] (test code = 0.3 mg/dl 0.0-1.1 IBIL) [facility]XR [facility] 2 VIEWS FLAT / [id number] 09:22:50[facility] ([facility]/)Name: LAUREN BETH : [id number] Sex: FProcedure: XR ABDOMEN 2 VIEWS FLAT / UPRIGHTOrder Date: 07/19/2020 8:40 AMOrdering Provider: REHAN COTTON .Clinical Indication: [id number]: Abdominal painComparison: July 05, 2020Findings:Postoperative change consisting [...] MD :17 AMDictated By: FARZAD DEWITTDate: 07/19/2020 09:17[facility] CHEM [id number] 09:10:00 Test Item Value Reference Range Interpretation [...] code = CREA) 0.5 mg/dl 0.6-1.3 L [facility] LAB CBC WITH AUTO [id number] 09:09:00 Test Item Value Reference Range Interpretation [...] code = IG%) 0.7 % 0.0-0.4 H [facility] LAB URINALYSIS WITHOUT [id number] 09:08:00 Test Item Value Reference Range Interpretation Comments Color (test code = UCOLR) Yellow Lt. Yellow A Clarity (test code = UCLAR) Clear Glucose (test code = UGLUC) Negative Negative N Bilirubin (test code = UBILI) Negative Negative N Ketones (test code = UKET) Negative Negative N Specific Egan (test code = USPGR) >=1.030 1.005-1.030 A Blood (test code = UBLD) Negative Negative N PH (test code = UPH) 6.0 4.5-8.0 A Protein (test code = UPROT) Negative Negative N Urobilinogen (test code = U UROB) 0.2 >0.2 N Nitrite (test code = UNITR) Negative Negative N Leukocyte Esterase (test code = Negative Negative N ULEUK) [facility]-[place]kinCULTURE, [id number] 08:00:00Specimen: Urine SpecimensCollected: 07/05/2020 03:00 Status: Final Last Updated: 07/07/2020 08:00 CULTURE (Final) (Final) No Growth After 48 HoursA[facility]-[place]XR ABDOMEN 1 VIEW (KUB)2020-07-05 04:07:04 [facility] ([facility]/[place])Name: LAUREN BETH : [id number] Sex: FPROCEDURE INFORMATION:Exam: XR Abdomen, 1 ViewExam [...] 4:06 AM CDT.Dictated By: OSKAR CRANEte: 07/05/2020 04:06[facility] , [id number] 03:54:00 Test Item Value Reference Range Interpretation Comments (Urine) (test code = Negative PREGU) [facility] LAB CHEM [id number] 03:53:00 Test Item Value Reference Range Interpretation [...] code = CREA) 0.5 mg/dl 0.6-1.3 L [facility] LAB CBC WITH AUTO [id number] 03:51:00 Test Item Value Reference Range Interpretation [...] (test code = IG%) 0.4 % 0.0-0.4 [facility]-[place]kinURINALYSIS WITH [id number] 03:33:00 Test Item Value Reference Range Interpretation Comments Color (test code = UCOLR) Yellow Clarity (test code = UCLAR) Clear Glucose (test code = UGLUC) NEGATIVE NEGATIVE N Bilirubin (test code = UBILI) Small NEGATIVE A Ketones (test code = UKET) TRACE NEGATIVE A Specific Egan (test code = USPGR) 1.020 1.005-1.030 A [...] code = UBACT) Trace None Seen,Trace N [facility]CT ABDOMEN/PELVIS W/[id number] 16:44:35 [facility] ([facility]/[place])Name: LAUREN BETH : [id number] Sex: FProcedure: CT ABDOMEN/PELVIS W/CONTRASTOrder date: 06/07/2020 3:47 PMOrdering Provider: REHAN Farrellinical Indication: [id number]: Left flank painComparison: 06/07/20Technique: Multiple axial helical [...] MD 06/07/20204:38 PMDictated By: WILEY VELÁZQUEZDate: 06/07/2020 16:38[facility]ONURINALYSIS WITH [id number] 15:22:00 Test Item Value Reference Range Interpretation Comments Color (test code = UCOLR) Yellow Clarity (test code = UCLAR) Clear Glucose (test code = UGLUC) NEGATIVE NEGATIVE N Bilirubin (test code = UBILI) NEGATIVE NEGATIVE N Ketones (test code = UKET) NEGATIVE NEGATIVE N Specific Egan (test code = USPGR) 1.020 1.005-1.030 A [...] code = UBACT) Trace None Seen,Trace N [facility] LAB CHEM [id number] 15:10:00 Test Item Value Reference Range Interpretation [...] code = CREA) 0.4 mg/dl 0.6-1.3 L [facility] LAB CBC WITH AUTO [id number] 15:08:00 Test Item Value Reference Range Interpretation [...] code = IG%) 0.5 % 0.0-0.4 H [facility]CT ABD/ PELVIS W/O CON (RENAL STONE)2020-06-07 14:56:05[facility] ([facility])Name: LAUREN BETH : [id number] Sex: FProcedure: CT ABD/ PELVIS W/O CON (RENAL STONE)Order date: 06/07/2020 2:18 PMOrdering Provider: REHAN Farrellinical Indication: [id number]: Left flank painComparison: 05/31/20TECHNIQUE: Using a helical [...] Velázquez MD 06/07/20202:49PMDictated By: WILEY VELÁZQUEZDate: 06/07/2020 14:49[facility]/PELVIS W/O [id number] 12:27:07NPO 4 hours. Do not withhold meds hyst [facility] ([facility]/)Name: LAUREN BETH : [id number] Sex: FProcedure: CT ABDOMEN/PELVIS W/O CONTRASTOrder Date: 05/31/2020 10:25 AMOrdering Provider: ME ANN MARIE Guamaninical Indication: [id number]: Pain radiating to right flankComparison: March 20, [...] MD 05/31/202012:20 PMDictated By: FARZAD DEWITT.Date: 05/31/2020 12:20[id number] 11:48:00 Test Item Value Reference Range Interpretation Comments Lipase (test code = LIPA) 116 U/L 73-393 [facility] LAB URINALYSIS WITHOUT [id number] 10:59:00 Test Item Value Reference Range Interpretation Comments Color (test code = UCOLR) Light yellow Lt. Yellow A Clarity (test code = UCLAR) Clear Glucose (test code = UGLUC) Negative Negative N Bilirubin (test code = UBILI) Negative Negative N Ketones (test code = UKET) Negative Negative N Specific Egan (test code = 1.025 1.005-1.030 A USPGR) Blood (test code = UBLD) Negative Negative N PH (test code = UPH) 6.0 4.5-8.0 A Protein (test code = UPROT) Negative Negative N Urobilinogen (test code = U 0.2 >0.2 N UROB) Nitrite (test code = UNITR) Negative Negative N Leukocyte Esterase (test code = Negative Negative N ULEUK) [facility] LAB CBC WITH AUTO [id number] 10:58:00 Test Item Value Reference Range Interpretation [...] code = IG%) 0.5 % 0.0-0.4 H [facility] [id number] 10:53:00 Test Item Value Reference Range Interpretation [...] code = CREA) 0.5 mg/dl 0.6-1.3 L [facility]-fkin ABDOMEN 1 VIEW (KUB)2020-04-25 21:02:16 [facility] ([facility]/[place])Name: LAUREN BETH : [id number] Sex: FPROCEDURE INFORMATION:Exam: XR Abdomen, 1 ViewExam [...] PM CDT. Dictated By: TEJAS RODRIGUEZDate: 04/25/2020 21:02[facility]ONURINALYSIS WITH [id number] 18:57:00 Test Item Value Reference Range Interpretation Comments Color (test code = UCOLR) Yellow Lt. Yellow A Clarity (test code = UCLAR) Clear Glucose (test code = UGLUC) Negative Negative N Bilirubin (test code = UBILI) Negative Negative N Ketones (test code = UKET) Negative Negative N Specific Egan (test code = 1.020 1.005-1.030 A USPGR) [...] code = UBACT) 4+ None Seen,Trace A [facility] LAB CBC WITH AUTO [id number] 18:55:00 Test Item Value Reference Range Interpretation [...] of Platel et clumping was entered by [id number] on 04/25/2020 18:5 5 [facility] LAB CHEM [id number] 18:17:00 Test Item Value Reference Range Interpretation [...] code = CREA) 0.4 mg/dl 0.6-1.3 L [facility], ANAEROBE [id number] 15:20:00FIRST DRAW = 1 aerobic and 1 anerobic CultureSpecimen: BloodCollected: 03/20/2020 18:30 Status: Final Last Updated: 03/26/2020 15:19 (1) FIRST DRAW = 1 aerobic and 1 anerobic Culture CULTURE (Final) (Final) No Growth After 5 DaysU[facility], [id number] 15:20:00FIRST DRAW = 1 aerobic and 1 anerobic CultureSpecimen: BloodCollected: 03/20/2020 18:30 Status: Final Last Updated: 03/26/2020 15:19 (1) FIRST DRAW = 1 aerobic and 1 anerobic Culture CULTURE (Final) (Final) No Growth [facility] 5 [facility]-[place]CT ABDOMEN/PELVIS W/[id number] 21:46:442 weeks s/p adhesolysis. Vomiting/pain/fever. Please do CT with PO and IV contrastProcedures: CT ABDOMEN/PELVIS W/CONTRASTExam Date: 03/20/2020 6:04 PMOrdering Physician: REHAN Farrellinical Indication: [id number]: Abdominal painComparison: CT abdomen/pelvis, 02/25/20TECHNIQUE: Spiral multislice [...] Juárez MD03/20/2020 9:40 PMDictated By: ELMER PHAMDate:03/20/2020 21:40[facility]ONHEPATIC FUNCTION PANEL (LIVER)2020-03-20 19:24:00 Test Item Value [...] (test code = 0.3 mg/dl 0.0-1.1 IBIL) [facility]inL[facility]ASE2020-09-20 19:24:00 Test Item Value Reference Range Interpretation Comments Lipase (test code = LIPA) 69 U/L 73-393 L [facility] HospitalMAGNESIUM2020-09-20 19:24:00 Test Item Value Reference Range Interpretation Comments Magnesium (test code = MG) 2.0 mg/dl 1.6-2.6 [facility] LAB CHEM [id number] 18:43:00 Test Item Value Reference Range Interpretation [...] code = CREA) 0.5 mg/dl 0.6-1.3 L [facility] LAB LACTIC [id number] 18:42:00 Test Item Value Reference Range Interpretation Comments LACTATE (test code = 2.50 mmol/l 0.90-1.70 HH R&RB sy rene hassan rn LAC) @1842 [facility] LAB CBC WITH AUTO [id number] 18:41:00 Test Item Value Reference Range Interpretation [...] (test code = IG%) 0.4 % 0.0-0.4 [facility] HealthcareP PERC PLMNT MIDLINE NO PORT > 5 y/o W/IMAGING 2020-03-15 13:21:10Procedure: SP PERC PLMNT MIDLINE NO PORT [...] secured to the skin in the usual fashion.Regional Guide images were recorded and stored in the [facility] fordocumentation. The patient tolerated the procedure well and there were noimmediate complications.Impression:1. Successful upper extremity vascular access.This final report was electronically signed by Dr Farzad Dewitt MD :14 PMDictated By: FARZAD DEWITTDate: 03/15/2020 13:14MMBA[facility] IRVINGCORONAVIRUS 2019 (IN HOUSE)2020-03-13 21:03:00 Test Item Value Reference Range Interpretation Comments FT (test code Negative Negative N The [employer] SARS -CoV-2 = COVID) (qualifier value) Reagents f or BD MAX System, the Bio Fire Covid-19, and t he Cepheid Covid-1 9 is for in vitro us e under FDA Emergency U se Authorization o nly. Indeterminate r esults recommend recol lection of specimen. [facility]kinXR ABD SERIES W/PA [id number] 17:33:07 Procedure: XR ABD SERIES W/PA CXROrder Date: 03/13/2020 4:25 PMOrdering Provider: DR ELIUD Stovallinical Indication: R10.0: ACUTE ABDOMENComparison: NoneFindings:Lungs are clear. Heart size is withinnormal limits.Abdomen views show non-obstructive bowel gas pattern. No pneumoperitoneum.Moderate volume stool burden.Surgical clips in the right upper quadrant of the abdomen.Impression:No acute pulmonary process.Nonobstructive bowel gas pattern.This final report was electronically signed by Dr Vee MD 03/13/20205:26 PMDictated By: Maggie BENITEZte: 03/13/2020 17:26[facility] CBC WITH AUTO [id number] 17:23:00 Test Item Value Reference Range Interpretation [...] entered by [id number] on 03/13/2020 17:23 [facility] HospitalfkinLIPASE2020-09-13 17:23:00 Test Item Value Reference Range Interpretation Comments Lipase (test code = LIPA) 61 U/L 73-393 L [facility] HospitalHEPATIC FUNCTION PANEL (LIVER)2020-03-13 17:23:00 Test Item Value [...] (test code = 0.4 mg/dl 0.0-1.1 IBIL) [facility] HospitalfkinURINALYSIS WITH [id number] 16:54:00 Test Item Value Reference Range Interpretation Comments Color (test code = UCOLR) Yellow Lt. Yellow A Clarity (test code = UCLAR) Clear Glucose (test code = UGLUC) Negative Negative N Bilirubin (test code = UBILI) Negative Negative N Ketones (test code = UKET) Negative Negative N Specific Egan (test code = >=1.030 1.005-1.030 A USPGR) [...] code = UBACT) 4+ None Seen,Trace A [facility] LAB CHEM [id number] 16:37:00 Test Item Value Reference Range Interpretation [...] code = CREA) 0.4 mg/dl 0.6-1.3 L [facility]-LufkinSP PERC PLMNT MIDLINE NO PORT > 5 y/o W/IMAGING 2020-03-02 12:23:44Procedure: SP PERC PLMNT MIDLINE NO PORT [...] procedure well and there were no immediate complications.I mages were permanently stored on a PACS storage system and also to document thepatency of the vessel.Impression:1. Successful upper extremity vascular access.This final report was electronically signedby Dr Silver Benitez MD 03/02/202012:17 PMDictated By: GLORY BENITEZKDate: 03/02/2020 12:17[facility] (IN HOUSE)2020-03-01 18:48:00 Test Item Value Reference Range Interpretation Comments FT (test code Negative Negative N The BioGX SARS -CoV-2 = COVID) (qualifier value) Reagents f or BD MAX System, the Bio Fire Covid-19, and t he Cepheid Covid-1 9 is for in vitro us e under FDA Emergency U se Authorization o nly. Indeterminate r esults recommend recol lection of specimen. [facility]-LufkinPT AND [id number] 11:51:00 Test Item Value Reference Range Interpretation Comments Protime (test code 9.8 seconds 9.5-12.1 = PT) INR (test code = 0.9 0.9-1.1 INR results are intended INR) ONLY to monitor Oral Anticoagulant t herapy in stablized patie nts. The INR Therapeutic Range is 2.0 - 3.0 Patie nts with a mechanical he art, the INR Range is 2. 5 - 3.5 [facility]-[id number] 11:51:00 Test Item Value Reference Range Interpretation Comments aPTT (test code = PTT) 27.4 seconds 23.9-30.7 [facility] Named [facility] CenterLufkinCBC (HEMOGRAM ONLY)2020-03-01 11:44:00 Test Item Value Reference [...] WILL BE NOTED ON THE RE PORT. [facility]-ScoobaCULTURE, [id number] 08:08:00Specimen: Urine RandomCollected: 02/25/2020 11:27 Status: Final Last Updated: 02/27/2020 08:08 CULTURE (Final) (Final) No Growth After 48 [facility]Tom[facility] [id number] 05:38:00 Test Item Value Reference Range Interpretation [...] 0.5-1.3 code = CREA) EGFR if >60 English (test code mL/min/1.73m\\ = EGFRAA) S\\2 EGFR if Non- >60 Estimate d Glomerular English (test code mL/min/1.73m\\ Filtrat ion Rate (eGFR) [...] and management of c hronic kidney failure. [facility]-ScoobaTS (Ultra Sensitive)2020-02-26 05:38:00 Test Item Value Reference Range Interpretation Comments TSH (test code = TSH) 0.04 mIU/L 0.35-3.74 L [facility] HospitalCB WITH AUTO [id number] 05:18:00 Test Item Value Reference Range Interpretation [...] 0.5 % 0.0-0.4 H IG%) CBC AUTO diffA[facility]-JerichoAVIRUS 2019 (IN HOUSE)2020-02-25 14:06:00 Test Item Value Reference Range Interpretation Comments FT (test code Negative Negative N The BioGX SARS -CoV-2 = COVID) (qualifier value) Reagents f or BD MAX System, the Bio Fire Covid-19, and t he Cepheid Covid-1 9 is for in vitro us e under FDA Emergency U se Authorization o nly. Indeterminate r esults recommend recol lection of specimen. [facility]-LufkinURINALYSIS WITH [id number] 12:56:00 Test Item Value Reference Range Interpretation Comments Color (test code = UCOLR) Yellow Lt. Yellow A Clarity (test code = UCLAR) Slightly Cloudy Glucose (test code = UGLUC) Negative Negative N Bilirubin (test code = UBILI) Negative Negative N Ketones (test code = UKET) Negative Negative N Specific Egan (test code = >=1.030 1.005-1.030 A USPGR) [...] code = UBACT) Trace None Seen,Trace N [facility] CenterTdhqbp-[id number] 12:52:00 Test Item Value Reference Range Interpretation Comments Lipase (test code = LIPA) 90 U/L 73-393 [facility] HospitalHEPATIC FUNCTION PANEL (LIVER)2020-02-25 12:52:00 Test Item Value [...] (test code = 0.3 mg/dl 0.0-1.1 IBIL) [facility]kinCT ABDOMEN/PELVIS W/[id number] 12:42:41NPO 4 hours. Do not withhold medsProcedure: CT ABDOMEN/PELVIS W/CONTRASTOrder date: 02/25/2020 11:26 AMOrdering [...] Otherwise, the stomach, small, and largebowel are wit hin normal limits.No peritoneal or retroperitoneal masses or adenopathy. No free fluid orpneumoperitoneum.Status post appendectomy.Urinary bladder is unremarkable. No pelvic masses or adenopathy seen. Perirectalfat planes are preserved.Osseous structures of the abdomen and pelvis are nonacute.Impressio n:Unremarkable CT of the abdomen and pelvis with IV contrast.This final report was electronically signed by Dr Wiley Velázquez MD 02/25/202012:36 PMDictated By: WILEY VELÁZQUEZDate: 02/25/2020 12:36[facility] CHEM 2020-02-25 12:07:00 Test Item Value Reference Range Interpretation [...] code = CREA) 0.5 mg/dl 0.6-1.3 L [facility] CBC WITH AUTO [id number] 12:05:00 Test Item Value Reference Range Interpretation [...] (test code = IG%) 0.3 % 0.0-0.4 [facility] CBC WITH AUTO [id number] 03:15:00 Test Item Value Reference Range Interpretation [...] code = IG%) 0.6 % 0.0-0.4 H [facility] CHEM [id number] 02:55:00 Test Item Value Reference Range Interpretation [...] code = CREA) 0.5 mg/dl 0.6-1.3 L [facility] ABDOMEN 1 VIEW (KUB)2020-02-25 02:45:30 PROCEDURE INFORMATION:Exam: XR Abdomen, 1 ViewExam date and time: 02/25/2020 1:51 AMAge: 34 years oldClinical indication: Nausea and vomiting; Prior surgery; Surgery date: 6+months; Surgery type: Gb removed, appendix removed; Patient HX: N/vTECHNIQUE:Imaging protocol: XR of the abdomen.Views: Frontal supine view of the abdomen. 1 View.COMPARISON:CT ABDOMEN/PELVIS W/CONTRAST 10/07/2019 10:23 PMFINDINGS:Gastrointestinal tract: Normal. No bowel dilation.Bones/joints: Unremarkable.IMPRESSION:No acute findings.This Final report was electronically signed by Jorge Luis White MD on 2:45 AM CDT.Dictated By: JORGE LUIS WHITEDate: 02/25/2020 02:45[facility] , URINE 2020-02-25 01:12:00 Test Item Value Reference Range Interpretation Comments (Urine) (test code = Negative PREGU) [facility] URINALYSIS WITHOUT [id number] 01:11:00 Test Item Value Reference Range Interpretation Comments Color (test code = UCOLR) Yellow Lt. Yellow A Clarity (test code = UCLAR) Clear Glucose (test code = UGLUC) Negative Negative N Bilirubin (test code = UBILI) Negative Negative N Ketones (test code = UKET) Negative Negative N Specific Egan (test code = USPGR) >=1.030 1.005-1.030 A Blood (test code = UBLD) Negative Negative N PH (test code = UPH) 5.5 4.5-8.0 A Protein (test code = UPROT) Negative Negative N Urobilinogen (test code = U UROB) 0.2 >0.2 N Nitrite (test code = UNITR) Negative Negative N Leukocyte Esterase (test code = Negative Negative N ULEUK) [facility]-LukinXR ABDOMEN 1 VIEW (KUB)2020-02-10 06:46:05 Procedure: XR ABDOMEN 1 VIEW (KUB)Order date: 02/10/2020 4:01 AMOrdering Provider: JUAN Galiciainical Indication: Abdominal painComparison: NoneFindings:There is no small or large bowel distention.There is no pneumoperitoneum.There are no suspicious calcifications.There is no skeletal abnormality.Impression:1. Negative single view abdomen.This final report was electronically signed by Dr Wiley Velázquez MD 02/10/20206:39 AMDictated By: WILEY VELÁZQUEZDate: 02/10/2020 06:39[facility]NEYS)2020-02-10 05:31:33PROCEDURE INFORMATION:Exam: US [...] AM CDT.Dictated By: JORGE LUIS WHITEDate: 02/10/2020 05:31[facility]ONURINALYSIS WITH [id number] 05:10:00 Test Item Value Reference Range Interpretation Comments Color (test code = UCOLR) Yellow Lt. Yellow A Clarity (test code = UCLAR) Clear Glucose (test code = UGLUC) >=1000 Negative A Bilirubin (test code = UBILI) Negative Negative N Ketones (test code = UKET) Negative Negative N Specific Egan (test code = 1.015 1.005-1.030 A USPGR) [...] = UBACT) None Seen None Seen,Trace N [facility] HospitalLIPASE2020-08-12 04:42:00 Test Item Value Reference Range Interpretation Comments Lipase (test code = LIPA) 91 U/L 73-393 [facility] HospitalHEPATIC FUNCTION PANEL (LIVER)2020-02-10 04:42:00 Test Item Value [...] (test code = 0.2 mg/dl 0.0-1.1 IBIL) [facility] CHEM [id number] 04:27:00 Test Item Value Reference Range Interpretation [...] (test code = CREA) 0.6 mg/dl 0.6-1.3 [facility] , [id number] 04:24:00 Test Item Value Reference Range Interpretation Comments (Urine) (test code = Negative PREGU) [facility] CBC WITH AUTO [id number] 04:22:00 Test Item Value Reference Range Interpretation [...] code = IG%) 0.5 % 0.0-0.4 H [facility]-LufkinCT L SPINE W/O [id number] 12:46:24 Procedure: CT L SPINE W/O CONTRASTOrder date: 01/25/2020 11:46 AMOrdering Provider: DONALD Healyinical Indication: [id number]: Low back painComparison: NoneTechnique: Using a multislice [...] final report was electronically signed by Dr iWley Velázquez MD 01/25/202012:39 PMDictated By: WILEY VELÁZQUEZDate: 01/25/2020 12:39[facility]ZONHEPATIC FUNCTION PANEL (LIVER)2019-12-09 05:49:00 Test Item Value [...] (test code = 0.3 mg/dl 0.0-1.1 IBIL) [address]-[id number] 05:49:00 Test Item Value Reference Range Interpretation Comments Lipase (test code = LIPA) 105 U/L 73-[address] LAB CHEM [id number] 05:06:00 Test Item Value Reference Range Interpretation [...] = CREA) 0.5 mg/dl 0.6-1.3 L ER [address] [place] [address] LAB CBC WITH AUTO [id number] 05:04:00 Test Item Value Reference Range Interpretation [...] (test code = IG%) 0.4 % 0.0-0.[address]-[id number] 02:23:00 Test Item Value Reference Range Interpretation [...] ( 4 - SerumAlbumin)] EGFR if >60 English (test code mL/min/1.73m\\ = EGFRAA) S\\2 EGFR if Non- >60 Estimate d Glomerular English (test code mL/min/1.73m\\ Filtrat ion Rate (eGFR) [...] and management of c hronic kidney failure. [facility]-LufkinURINALYSIS WITH [id number] 02:11:00 Test Item Value Reference Range Interpretation Comments Color (test code = UCOLR) Yellow Lt. Yellow A Clarity (test code = UCLAR) Clear Glucose (test code = UGLUC) Negative Negative N Bilirubin (test code = UBILI) Negative Negative N Ketones (test code = UKET) Trace Negative A Specific Egan (test code = USPGR) >=1.030 1.005-1.030 A [...] code = UBACT) 2+ None Seen,Trace A [facility] CBC WITH AUTO [id number] 02:03:00 Test Item Value Reference Range Interpretation [...] (test code = IG%) 0.4 % 0.0-0.4 [facility]kinCT ABDOMEN/PELVIS W/[id number] 22:43:00NPO 4 hours. Do not withhold meds [...] one of thesedose optimization techniques: automated exposure c ontrol; mA and/or kVadjustment per patient size (includes targeted exams where dose is matched toclinical indication); or iterative reconstruction.Contrast material: ISO 300; Contrast volume: 80 ml; Contrast route: IV;COMPARISON:CT ABDOMEN/PELVIS W/CONTRAST 08/17/2019 4:02 AMFINDINGS:Liver: Normal. No m ass.Gallbladder and bile ducts: Prior cholecystectomy.Pancreas: Normal. No [...] 201910:42 PM CDT.Dictated By: JOSUÉ MCGHEEDate: 10/07/2019 22:42[facility] 2019-10-07 22:05:00 Test Item Value Reference Range Interpretation [...] 0.5-1.3 code = CREA) EGFR if >60 English (test code mL/min/1.73m\\ = EGFRAA) S\\2 EGFR if Non- >60 Estimate d Glomerular English (test code mL/min/1.73m\\ Filtrat ion Rate (eGFR) [...] and management of c hronic kidney failure. [facility]-LufkinAMYLASE, [id number] 22:05:00 Test Item Value Reference Range Interpretation Comments Amylase (test code = AMYL) 43 U/L 25-115 [facility] CenterJdsubp-[id number] 22:05:00 Test Item Value Reference Range Interpretation Comments Lipase (test code = LIPA) 95 U/L 73-393 [facility]-LufkinURINALYSIS WITH [id number] 21:49:00 Test Item Value Reference Range Interpretation Comments Color (test code = UCOLR) Yellow Lt. Yellow A Clarity (test code = UCLAR) Clear Glucose (test code = UGLUC) Negative Negative N Bilirubin (test code = UBILI) Negative Negative N Ketones (test code = UKET) 15 Negative A Specific Egan (test code = USPGR) >=1.030 1.005-1.030 A [...] code = UBACT) 3+ None Seen,Trace A [facility] CBC WITH AUTO [id number] 21:45:00 Test Item Value Reference Range Interpretation [...] (test code = IG%) 0.4 % 0.0-0.4 [facility] , [id number] 21:36:00 Test Item Value Reference Range Interpretation Comments (Urine) (test code = Negative PREGU) [facility]kinCT ABDOMEN/PELVIS W/O [id number] 03:56:36 PROCEDURE INFORMATION:Exam: CT Abdomen And Pelvis Without ContrastExam [...] seen.Intraperitoneal space: Unremarkable. No free air. No significant [...] 3:56 AM CDT.Dictated By: AMY ORDOÑEZDate: 09/20/2019 03:56 [facility] [id number] 02:07:00 Test Item Value Reference Range Interpretation [...] ( 4 - SerumAlbumin)] EGFR if >60 English (test code mL/min/1.73m\\ = EGFRAA) S\\2 EGFR if Non- >60 Estimate d Glomerular English (test code mL/min/1.73m\\ Filtrat ion Rate (eGFR) [...] and management of c hronic kidney failure. [facility]-LufkinXR ABDOMEN 2 VIEWS FLAT / [id number] 02:01:15PROCEDURE INFORMATION:Exam: XR Abdomen, 2 ViewsExam date and time: 09/20/2019 1:13 AMAge: 34 years oldClinical indication: Abdominal pain; Flank; Right; Patient HX: HX ofappendectomy, cholecystectomy, hy sterectomyTECHNIQUE:Imaging protocol: XR of the abdomen.Views: 2 Views.COMPARISON:No relevant prior studies available.FINDINGS:Gastrointestinal tract: Moderate stool throughout the colon. Mild gas in the GItract, primarily colonic to the level of the rectum without abnormaldilatation. No abnormal air-f luid levels.Intraperitoneal space: No free air.Organs: Status post cholecystectomy.Bones/joints: Unremarkable for age.IMPRESSION:1. Status post cholecystectomy.2. Moderate stool throughout the colon.3.Otherwise negative abdomen with mild colon gas.This Final report was electronically signed by Amy Ordoñez MD on 2:01 AM CDT.Dictated By: AMY ORDOÑEZDate: 09/20/2019 02:01[facility] MAZONURINALYSIS WITH MICROSCOPIC 2019-09-20 01:56:00 Test Item Value Reference Range Interpretation Comments Color (test code = UCOLR) Yellow Lt. Yellow A Clarity (test code = UCLAR) Clear Glucose (test code = UGLUC) >=1000 Negative A Bilirubin (test code = UBILI) Negative Negative N Ketones (test code = UKET) Trace Negative A Specific Egan (test code = USPGR) >=1.030 1.005-1.030 A [...] code = UBACT) 2+ None Seen,Trace A [facility] CBC WITH AUTO [id number] 01:38:00 Test Item Value Reference Range Interpretation [...] code = IG%) 0.5 % 0.0-0.4 H [facility]-LukinTN ABDOMEN/PELVIS W/[id number] 04:23:30 PROCEDURE INFORMATION:Exam: CT Abdomen And Pelvis With ContrastExam [...] targeted exams where dose is matched toclinical in dication); or iterative reconstruction.Contrast material: ISO 300; Contrast volume: 90 ml; Contrast route: IV;COMPARISON:CT ABDOMEN/PELVIS W/O CONTRAST 09/30/2018 11:04 PMFINDINGS:Liver: [...] 20194:23 AM CDT.Dictated By: SETH MEDINADate: 08/17/2019 04:23MMBAYL[facility] – [id number] 03:34:00 Test Item Value Reference Range Interpretation Comments Lipase (test code = LIPA) 67 U/L 73-393 L [facility]-[id number] 03:34:00 Test Item Value Reference Range Interpretation [...] ( 4 - SerumAlbumin)] EGFR if >60 English (test code mL/min/1.73m\\ = EGFRAA) S\\2 EGFR if Non- >60 Estimate d Glomerular English (test code mL/min/1.73m\\ Filtrat ion Rate (eGFR) [...] and management of c hronic kidney failure. [facility] CBC WITH AUTO [id number] 03:19:00 Test Item Value Reference Range Interpretation [...] code = IG%) 0.7 % 0.0-0.4 H [facility]-ScoobaURINALYSIS WITH [id number] 03:10:00 Test Item Value Reference Range Interpretation Comments Color (test code = UCOLR) YELLOW Clarity (test code = UCLAR) CLEAR Glucose (test code = UGLUC) NEGATIVE NEGATIVE N Bilirubin (test code = UBILI) NEGATIVE NEGATIVE N Ketones (test code = UKET) NEGATIVE NEGATIVE N Specific Egan (test code = 1.025 1.005-1.030 A USPGR) [...] code = UBACT) 1+ None Seen,Trace A [facility] , [id number] 03:03:00 Test Item Value Reference Range Interpretation Comments (Urine) (test code = Negative PREGU) ONLY AVAILABLE 8A-12MNAurora Health Care [facility] Center-LufkinED2 [id number] 20:37:00 Test Item Value Reference Range Interpretation [...] (test code = CREA) 0.6 mg/dl 0.6-1.2 [facility] Named [facility] CenterLufkinED2 [id number] 20:28:00 Test Item Value Reference Range Interpretation [...] code = MPV) 7.1 fL 8.0-11.0 A [facility] HospitalfkinCULTLISSY, [id number] 08:44:99lea2Pyndsjmj: Urine SpecimensCollected: 07/12/2019 15:00 Status: Final Last Updated: 2019 08:44 (1) err7 Culture Result (Final) (Final) Moderate Mixed Body Gabriela Isolated No Pathogens Isolated No Further Workup PerformedAurora Health Care [facility] Center-LufkinFL LIMITED [id number] 17:53:41Procedures: [place] LIMITED IVPExam Date: 07/12/2019 3:21 PMOrdering Physician: REHAN Farrellinical Indication: [id number]: Flank painComparison: CT abdomen/pelvis, 05/17/19Findings: Frontal radiographs [...] MD07/12/2019 5:47 PMDictated By: ELMER PHAMDate: 07/12/2019 17:47[id number] 15:56:00 Test Item Value Reference Range Interpretation Comments Lipase (test code = LIPA) 97 U/L 73-393 viy2MjjkzgplAurora Health Care [facility] Center-fkinHEPATIC FUNCTION PANEL (LIVER)2019-07-12 15:56:00 Test Item Value [...] (test code = 0.2 mg/dl 0.0-1.1 IBIL) [address]-LufkinURINALYSIS WITH [id number] 15:51:00 Test Item Value Reference Range Interpretation Comments Color (test code = UCOLR) YELLOW Clarity (test code = UCLAR) CLEAR Glucose (test code = UGLUC) NEGATIVE NEGATIVE N Bilirubin (test code = UBILI) NEGATIVE NEGATIVE N Ketones (test code = UKET) NEGATIVE NEGATIVE N Specific Egan (test code = 1.020 1.005-1.030 A USPGR) [...] code = UBACT) 4+ None Seen,Trace A [address] LAB CHEM [id number] 15:09:00 Test Item Value Reference Range Interpretation [...] (test code = CREA) 0.6 mg/dl 0.6-1.[address] LAB CBC WITH AUTO [id number] 15:08:00 Test Item Value Reference Range Interpretation [...] (test code = IG%) 0.4 % 0.0-0.[address]-[place]obaCT ABDOMEN/PELVIS W/[id number] 16:33:46NPO 4 hours. Do not withhold medsProcedures: CT ABDOMEN/PELVIS W/CONTRASTExam Date: 05/17/2019 1:31 PMOrdering Physician: MERLE LYNNEClinical Indication: [id number]: Abdominal painComparison: CT abdomen/pelvis, 04/09/19TECHNIQUE: Spiral multislice [...] post gastric reduction.Mesentery: Normal.RETROPERITONEUM:Aorta: Normal.Lymphadenopathy: No retroperitoneal lymp hadenopathy.Masses: None.OSSEOUS: Degenerative changes of the spine; otherwise, no significant osseouslesions.OTHER: No significant abnormality of the remaining soft tissuesIMPRESSION:1. Moderate to large stool burden in the colon may represent constipation;otherwise, no significant abnormalities werepresent to explain the patient'sabdominal pain complaint.2. Chronic findings, as above.This final report was electronically signed by Dr Elmer Juárez MD05/17/2019 4:27 PMDictated By: ELMER PHAMDate: 05/17/2019 16:27MMBAYL[facility] [id number] 16:20:00 Test Item Value Reference Range Interpretation Comments Lipase (test code = LIPA) 70 U/L 73-393 L [facility] CHEM [id number] 15:24:00 Test Item Value Reference Range Interpretation [...] code = CREA) 0.5 mg/dl 0.6-1.3 L [facility] LACTIC [id number] 15:23:00 Test Item Value Reference Range Interpretation Comments LACTATE (test code = LAC) 1.39 mmol/l 0.90-1.70 [facility] CBC WITH AUTO [id number] 15:21:00 Test Item Value Reference Range Interpretation [...] code = IG%) 0.5 % 0.0-0.4 H [facility] OconomowockinURINALYSIS WITH [id number] 15:08:00 Test Item Value Reference Range Interpretation Comments Color (test code = UCOLR) YELLOW Clarity (test code = UCLAR) CLEAR Glucose (test code = UGLUC) NEGATIVE NEGATIVE N Bilirubin (test code = UBILI) NEGATIVE NEGATIVE N Ketones (test code = UKET) NEGATIVE NEGATIVE N Specific Egan (test code = 1.025 1.005-1.030 A USPGR) [...] code = UBACT) 2+ None Seen,Trace A [facility]-ScoobaCT ANGIO HEAD W/WO [id number] 16:28:5720 g Cathlon Above the Antecubital or higher requiredProcedure: CT ANGIO HEAD W/WO CONTRASTOrder Date: 05/12/2019 3:30 PMOrdering Provider: REHAN VANG SA NDERSClinical Indication: [id number]: HeadacheComparison: NoneTechnique: Using a helical scanner, sequential axial imaging of the brain wasobtained before and after the administration of the contrast medium. At anindependent workstation, 3-D reconstructions of the [place] of [place] wereobtained.This examwas performed according to the departmental dose-optimization programwhich includes automated exposure control, adjustment of the mA and/or kVaccording to patient size and/or use of iterative reconstruction techniques.Findings:The supraclinoid internal carotid artery segments have [...] is patent.The internal cerebral veins, vein of Mavrin, and straight sinus are patent.The transverse and sigmoid sinuses are patent.No enhancing intracranial lesions are identified.IMPRESSION:1. Negative CT angiogram of the brain.This final report was electronically signed by Dr Farzad Dewitt MD 05/12/20194:22 PMDictated By: FARZAD DEWITTDate: 05/12/2019 16:22[facility] OF [facility]ONCT ABDOMEN/PELVIS W/[id number] 14:36:05NPO 4 hours. Do not withhold medsProcedure: CT ABDOMEN/PELVIS W/CONTRASTOrder Date: 04/09/2019 8:00 AMOrdering Provider: LIZBETH Linaresical Indication: R09.89: OTHER SPECIFIED SYMPTOMS AND SIGNS [...] MD 04/09/20192:29 PMDictated By: GLORY BENITEZKDate: 04/09/2019 14:29[facility] WITH AUTO [id number] 09:02:00 Test Item Value Reference Range Interpretation [...] code = 0.5 % 0.0-0.4 H IG%) [facility] OconomowockinCBC WITH AUTO [id number] 09:14:00 Test Item Value Reference Range Interpretation [...] (test code = 0.4 % 0.0-0.4 IG%) [facility]-[id number] 09:12:00 Test Item Value Reference Range Interpretation [...] 0.5-1.3 code = CREA) EGFR if >60 English (test code mL/min/1.73m\\ = EGFRAA) S\\2 EGFR if Non- >60 Estimate d Glomerular English (test code mL/min/1.73m\\ Filtrat ion Rate (eGFR) [...] and management of c hronic kidney failure. [facility]-LufkinSP PERC PLMNT MIDLINE NO PORT > 5 y/o W/IMAGING 2019-04-07 16:11:23Procedure: SP PERC PLMNT MIDLINE NO PORT > 5 y/o W/IMAGINGOrder Date: 04/07/2019 3:23 PMOrdering Provider: LIZBETH Linaresical Indication: Vascular accessTechnique:The patient [...] left axillary vein. The wire was removed. Thecatheterwas secured to the skin in the usual fashion. The patient tolerated theprocedure well and there were no immediate complications.Impression:1. Successful upper extremity vascular access.This marianne l report was electronically signed by Dr Wiley Velázquez MD 04/07/20194:05 PMDictated By: WILEY VELÁZQUEZDate: 04/07/2019 16:05[facility]ONCT ABDOMEN/PELVIS W/[id number] 22:50:40PROCEDURE INFORMATION:Exam: CT Abdomen and pelvis with [...] fossa.Pancreas: Normal. No ductal dilation.Spleen: Normal. No spl enomegaly.Adrenals: Normal. No mass.Kidneys and ureters: Normal symmetric [...] 10:50 PM CDT.Dictated By: ELMER PHAMDate: 04/04/2019 22:50[facility] OF [id number] 21:22:00 Test Item Value Reference Range Interpretation Comments Lipase (test code = LIPA) 89 U/L 73-393 [facility]IVER)2019-04-04 21:22:00 Test Item Value [...] (test code = 0.3 mg/dl 0.0-1.1 IBIL) [facility] CHEM [id number] 21:07:00 Test Item Value Reference Range Interpretation [...] (test code = CREA) 0.6 mg/dl 0.6-1.3 [facility] URINALYSIS WITHOUT [id number] 21:05:00 Test Item Value Reference Range Interpretation Comments Color (test code = UCOLR) Yellow Lt. Yellow A Clarity (test code = UCLAR) Slightly Cloudy Glucose (test code = UGLUC) 100 Negative A Bilirubin (test code = UBILI) Negative Negative N Ketones (test code = UKET) Negative Negative N Specific Egan (test code = >=1.030 1.005-1.030 A USPGR) Blood (test code = UBLD) Negative Negative N PH (test code = UPH) 5.5 4.5-8.0 A Protein (test code = UPROT) Negative Negative N Urobilinogen (test code = U 0.2 >0.2 N UROB) Nitrite (test code = UNITR) Negative Negative N Leukocyte Esterase (test code Negative Negative N = ULEUK) [facility] CBC WITH AUTO [id number] 21:04:00 Test Item Value Reference Range Interpretation [...] code = IG%) 0.5 % 0.0-0.4 H [facility] , [id number] 21:04:00 Test Item Value Reference Range Interpretation Comments (Urine) (test code = Negative PREGU) ONLY AVAILABLE 8A-12[facility]kinED2 [id number] 16:05:00 Test Item Value Reference Range Interpretation Comments Sodium (test code = CANCELED mmol/l The r eleased value NA) 141 was cancele d by [id number] on 04/04/2019 16:0 5 Potassium (test code CANCELED mmol/l The released value = K) 3.9 was cancele d by [id number] on 04/04/2019 16:0 5 CO2 (test code = CANCELED mmol/l The rele ased value CO2) 23 was canceled by [id number] on 04/04/2019 16:0 5 Chloride (test code CANCELED mmol/l The r eleased value = CL) 108 was cancele d by [id number] on 04/04/2019 16:0 5 Glucose (test code = CANCELED mg/dl The r eleased value GLU) 96 was canceled by [id number] on 04/04/2019 16:0 5 Calcium (test code = CANCELED mg/dl The r eleased value CALC) 8.8 was cancele d by [id number] on 04/04/2019 16:0 5 BUN (test code = CANCELED mg/dl The relea sed value BUN) 11 was canceled by [id number] on 04/04/2019 16:0 5 Creatinine (test CANCELED mg/dl code = CREA) [facility] HospitalHISTOLOGY [id number] 11:08:[address] [place] [address]Spbum: [phone] BHPU #: [id number] MedicalDirector: Seth Valdez M.D.Surgical Pathology Consultation ReportPatient Name: LAUREN BETH Case #: [id number] [facility]. Rec. #:[id number] [id number] Date: 03/21/2019 : 1985(Age:33) Received: 03/23/2019 [...] greatest dimension. The cystsarefilled with clearserous fluid. Regional Guide sections of the ovaryandpossible fallopian tube are submitted in cassettes A1-A8. /03/23/2019 Seth Valdez MD, Board Certified in Anatomic Pathology Microscopic DescriptionMicroscopic examination of the right ovary reveals fibrovascularadhesionsalong the surface of the ovary as well as along the accompanyingfallopiantube. The ovarian parenchyma contains follicular cysts, benign serouscyst,as well as numerous corpus albicans. No areas of endometriosis areseen. Billing Fee Code(s): A; 23911OveqedcqPro[facility]ockin- TRANSVAGINAL W/[id number] 16:45:00 Patient Name: ADELIA BETH Unit No: [id number] EXAMS: CPT CODE: [id number] US TRANSVAGINAL W/PELVIS 72435 CLINICAL HISTORY: Right lower quadrant pain. Status [...] MD Technologist: Dipesh Miranda RDMS, RVT Probe: [id number] Trnscrbd D/ (8727) Ro Orig Print D/T: S: 03/10/2019 (9028) [facility] NAME: ADELIA BETH Radiology Department PHYS: - Hilaria Calderón [address] : 1985 AGE: 33 SEX: F [place], [place] [address] LOC: ALONDRA PHONE #: [phone] EXAM DATE: 03/10/2019 STATUS: REG ER FAX #: [phone] RAD NO: Page 1 Signed Report Patient Name: ADELIA BETH Unit No: [id number] EXAMS: CPT CODE: [id number] US TRANSVAGINAL W/PELVIS 89515 <Continued> [facility] NAME: ADELIA BETH Radiology Department PHYS: BEBECONCHIS - Hilaria Calderón [address] : 1985 AGE: 33 SEX: F [place] [address] LOC: ALONDRA PHONE #: [phone] EXAM DATE: 03/10/2019 STATUS: ROBERT ER FAX #: [phone] RAD NO: Page 2 Signed Report- US TRANSVAGINAL W/[id number] 16:45:00 Patient Name: LAUREN BETH Unit No: [id number] EXAMS: CPT CODE: [id number] US TRANSVAGINAL W/PELVIS 08655 CLINICAL HISTORY: Right lower quadrant pain. Status [...] MD Technologist: Dipesh Miranda RDMS, RVT Probe: [id number] Trnscrbd D/ (1644) Ro Orig Print D/T: S: 03/10/2019 (1647) [facility] LAUREN [facility] Radiology Department PHYS: SUE.Faustino - Hilaria Calderón [address] : 1985 AGE: 33 SEX: F [place] [address] LOC: ALONDRA PHONE #: [phone] EXAM DATE: 03/10/2019 STATUS: [facility] ER FAX #: [phone] RAD NO: [id number] Page 1 Signed Report Patient Name: LAUREN BETH Unit No: [id number] EXAMS: CPT CODE: [id number] US TRANSVAGINAL W/PELVIS 07254 (Continued) [facility] NAME: LAUREN BETH Radiology DepartmentPHYS: Hilaria Maldonado [address] : 1985 AGE: 33 SEX: F [place], [place] [address] LOC: ALONDRA PHONE #: [phone] EXAM DATE: 03/10/2019 STATUS: [facility] FAX #: [phone] RAD NO: [id number] Page 2 Signed Report- US PELVIS [id number] 16:45:00 Patient Name: ADELIA BETH Unit No: [id number] EXAMS: CPT CODE: [id number] US PELVIS COMPLETE 33308 CLINICAL HISTORY: Right lower quadrant pain. Status [...] left oophorectomy. 2. Enlargement of the right ovarywith hemorrhagic cyst as well as simple cyst as described above. Blood flow is identified in the right ovary. at 1645 Reported and signed by:Mario Guidry MD CC: Hilaria Calderón MD Technologist: Dipesh Miranda RDMS, RVT Probe: Trnscrbd D/ (1645) hectorSDR.YOS Orig Print D/T: S: 03/10/2019 (1648) [facility] NAME: ADELIA BETH Radiology Department PHYS: NIGEL - Conchis Calderónondra [address] : 1985AGE: 33 SEX: [place] [address] LOC: DayanaraERS PHONE #: [phone] EXAM DATE: 03/10/2019 STATUS: REG ER FAX #: [phone] RAD NO: Page 1 Signed Report Patient Name: ADELIA BETH Unit No: [id number] EXAMS: CPT CODE: [id number] US PELVIS COMPLETE 93627 <Continued> [facility] NAME: ADELIA BETH Radiology Department PHYS: NIGEL - Conchis Calderónondra [address] : 1985 AGE: 33 SEX: [place] [address] LOC: DayanaraERS PHONE #: [phone] EXAM DATE: 03/10/2019 STATUS: REG ER FAX #: [phone] RAD NO: Page 2 Signed Report- US PELVIS [id number] 16:45:00 Patient Name: LAUREN BETH Unit No: [id number] EXAMS: CPT CODE: [id number] US PELVIS COMPLETE 32381 CLINICAL HISTORY: Right lower quadrant pain. Status post appendectomy. History of ovarian cyst. Real-time ultrasound examination of the pelvis was performed using transabdominal and endovaginal approach. Uterus and left ovary have been surgically removed. Right ovary is enlarged and measures 8.4 x 5.4 x 7.2 cm. It contains a hemorrhagic cyst measuring 4.6 x 3.7 x 3.9 cm and a simple cyst measuring5.1 x 4.6 x 4.4 cm. Additional smaller [...] Dipesh Miranda RDMS, RVT Probe: Trnscrbd D/ (6205) t.SDR.YOS Orig Print D/T: S: 03/10/2019 (1768) [facility] NAME: LAUREN BETH Radiology Department PHYS: SUE. - Hilaria Calderón [address] : 1985 AGE: 33 SEX: F [place] [address] LOC: DayanaraERS PHONE #: [phone] EXAM DATE: 03/10/2019 STATUS: DEP ER FAX #: [phone] RAD NO: [id number] Page 1 Signed Report Patient Name: LAUREN BETH Unit No: [id number] EXAMS: CPT CODE: [id number] US PELVIS COMPLETE 11384 (Continued) [facility] NAME: LAUREN BETH Radiology Department PHYS: SUE. - Hilaria Calderón [address] : 1985 AGE: 33 SEX: F [place], [place] [address] LOC: DayanaraERS PHONE #: [phone] EXAM DATE: 03/10/2019 STATUS: DEP ER FAX #: [phone] RAD NO: [id number] Page 2 Signed ReportCBC W/AUTO DIFF 2019-03-10 [...] = PLTMR) UA RFLX MICR CULT IF [id number] 16:07:00 Test Item Value Reference Range Interpretation [...] A Indication for culture: Suprapubic PainUR HCG [id number] 16:07:00 Test Item Value Reference Range Interpretation [...] culture: Suprapubic PainUA RFLX MICR CULT IF [id number] 16:04:00 Test Item Value Reference Range Interpretation [...] EPIU) Indication for culture: Suprapubic PainUR HCG [id number] 16:04:00 Test Item Value Reference Range Interpretation [...] culture: Suprapubic PainUA RFLX MICR CULT IF [id number] 15:55:00 Test Item Value Reference Range Interpretation [...] RARE-FEW Indication for culture: Suprapubic PainUR HCG [id number] 15:55:00 Test Item Value Reference Range Interpretation [...] and tested. Indication for culture: Suprapubic PainED2 [id number] 01:18:00 Test Item Value Reference Range Interpretation [...] code = MPV) 6.9 fL 8.0-11.0 A [facility] URINE [id number] 00:55:00 Test Item Value Reference Range Interpretation Comments Color (test code = UCOLR) Yellow Lt. Yellow A Clarity (test code = UCLAR) Clear Glucose (test code = UGLUC) NEGATIVE NEGATIVE N Bilirubin (test code = UBILI) NEGATIVE NEGATIVE N Ketones (test code = UKET) NEGATIVE NEGATIVE N Specific Egan (test code = USPGR) 1.030 1.005-1.030 A Blood (test code = UBLD) NEGATIVE NEGATIVE N PH (test code = UPH) 6.0 4.5-8.0 A Protein (test code = UPROT) Trace NEGATIVE A Urobilinogen (test code = U UROB) 0.2 >0.2 N Nitrite (test code = UNITR) NEGATIVE NEGATIVE N Leukocyte Esterase (test code = NEGATIVE NEGATIVE N ULEUK) [facility]ED[facility] , [id number] 00:54:00 Test Item Value Reference Range Interpretation Comments (Urine) (test code = Negative PREGU) [facility] CenterTxiaaq-BobasfAWETFM9639-27-10 13:07:00 Test Item Value Reference Range Interpretation Comments Lipase (test code = LIPA) 106 U/L 73-393 [facility] ABDOMEN/PELVIS W/[id number] 12:24:12Procedures: ED2 CT ABDOMEN/PELVIS W/CONTRASTExam Date: 02/07/2019 10:11 AMOrdering Physician: WYATT Downsinical Indication: [id number]: Epigastric painComparison: CT abdomen/pelvis, 01/27/19TECHNIQUE: Spiral multislice scanning was obtained from the lung bases throughthe bony pelvis with intravenous con trast only. 2-D reconstructions wereobtained according to our usual protocol.This exam was performedaccording to the our departmental dose- optimizationprogram which [...] MD02/07/2019 12:17 PMDictated By: ELMER PHAMDate: 02/07/2019 12:17[place] [address] [id number] 10:48:00 Test Item Value Reference Range Interpretation [...] (test code = TP) 7.6 gm/dl 6.4-8.1 [place] [address] URINE [id number] 10:45:00 Test Item Value Reference Range Interpretation Comments Color (test code = UCOLR) Yellow Lt. Yellow A Clarity (test code = UCLAR) Sl Cloudy Glucose (test code = UGLUC) NEGATIVE NEGATIVE N Bilirubin (test code = UBILI) NEGATIVE NEGATIVE N Ketones (test code = UKET) NEGATIVE NEGATIVE N Specific Egan (test code = 1.025 1.005-1.030 A USPGR) Blood (test code = UBLD) NEGATIVE NEGATIVE N PH (test code = UPH) 5.5 4.5-8.0 A Protein (test code = UPROT) NEGATIVE NEGATIVE N Urobilinogen (test code = U UROB) 0.2 >0.2 N Nitrite (test code = UNITR) NEGATIVE NEGATIVE N Leukocyte Esterase (test code = NEGATIVE NEGATIVE N ULEUK) [place] [address] , [id number] 10:45:00 Test Item Value Reference Range Interpretation Comments (Urine) (test code = Negative PREGU) [place] [address] [id number] 10:44:00 Test Item Value Reference Range Interpretation [...] code = MPV) 6.8 fL 8.0-11.0 A [facility]kinCT ABDOMEN/PELVIS W/[id number] 12:29:19s/p hysterectomy; rlq painProcedure: CT ABDOMEN/PELVIS W/CONTRASTOrder Date: 01/27/2019 10:57 AMOrdering Provider: DR LEXUS CASTREJON ACOSTAClinical Indication: [id number]: Abdominal painComparison: September 30, 2018TECHNIQUE:The abdo men and pelvis were scanned utilizing a multidetector [...] Uterus is surgically absent. Bilobed appearing ovariancyst measuring maximally up to 5 cm in the [...] MD 01/27/201912:23 PMDictated By: GLORY BENITEZKDate: 01/27/2019 12:23[facility]ONURINALYSIS WITH [id number] 12:10:00 Test Item Value Reference Range Interpretation Comments Color (test code = UCOLR) YELLOW Clarity (test code = UCLAR) CLEAR Glucose (test code = UGLUC) NEGATIVE NEGATIVE N Bilirubin (test code = UBILI) NEGATIVE NEGATIVE N Ketones (test code = UKET) NEGATIVE NEGATIVE N Specific Egan (test code = USPGR) <=1.005 1.005-1.030 A [...] code = UBACT) Trace None Seen,Trace N [facility] CenterKulaeg-PcbierBUESNB7825-24-30 11:49:00 Test Item Value Reference Range Interpretation Comments Lipase (test code = LIPA) 91 U/L 73-393 [facility]ockinAMYLASE, [id number] 11:49:00 Test Item Value Reference Range Interpretation Comments Amylase (test code = AMYL) 45 U/L 25-115 [facility] CHEM [id number] 11:25:00 Test Item Value Reference Range Interpretation [...] code = CREA) 0.5 mg/dl 0.6-1.3 L [facility] CBC WITH AUTO [id number] 11:23:00 Test Item Value Reference Range Interpretation [...] code = IG%) 0.6 % 0.0-0.4 H [facility]-LufkinUS PELVIS [id number] 07:55:25h/o complex right ovarian cystsProcedure: Pelvic ultrasound.CLINICAL INDICATION: Right lower quadrant pain. Status post hysterectomyOrder Date: 12/07/2018 2:07 AMCOMPARISON: CT abdomen and pelvis September 30, 2018 as well as pelvic ultrasoundMay 13, 2018TECHNIQUE: Transabdominal sonography was performed with color flow Doppler. Notransvaginal examination performed.FINDINGS:That is post hysterectomy. Status post left oophorectomy.Normal arterial flow to the right ovary without [...] Velázquez MD 12/07/20187:49 AMDictated By:WILEY VELÁZQUEZDate: 12/07/2018 07:49MM OF [id number] 03:11:00 Test Item Value Reference Range Interpretation Comments Lipase (test code = LIPA) 136 U/L 73-393 [facility] (LIVER)2018-12-07 03:10:00 Test Item Value [...] (test code = 0.1 mg/dl 0.0-1.1 IBIL) [facility] CHEM [id number] 02:41:00 Test Item Value Reference Range Interpretation [...] code = CREA) 0.5 mg/dl 0.6-1.3 L [facility] CBC WITH AUTO [id number] 02:39:00 Test Item Value Reference Range Interpretation [...] code = IG%) 0.5 % 0.0-0.4 H [facility]-LufkinURINALYSIS WITH [id number] 02:37:00 Test Item Value Reference Range Interpretation Comments Color (test code = UCOLR) YELLOW Clarity (test code = UCLAR) CLEAR Glucose (test code = UGLUC) 500 NEGATIVE A Bilirubin (test code = UBILI) NEGATIVE NEGATIVE N Ketones (test code = UKET) TRACE NEGATIVE A Specific Egan (test code = USPGR) >=1.030 1.005-1.030 A [...] code = UBACT) 2+ None Seen,Trace A [facility]-LufkinCULTURE, [id number] 07:39:00CULTURE RIGHT ABDOMEN WOUND CARE DEPTSpecimen: AbdomenCollected: 10/15/2018 15:48 Status: Final Last Updated: 10/17/2018 01:39 (1) CULTURE RIGHT ABDOMEN WOUND CARE DEPT Culture Result (Final) (Final) Few Staphylococcus aureus Isolate (Final) (Final) Staphylococcus aureus Ciprofloxacin <=0.5 S Clindamycin 0.25 S Daptomycin 0.25 S Erythromycin 0.5 S Gentamicin <=0.5 S Levofloxacin <=0.12 S Linezolid 4 S Moxifloxacin <=0.25 S Oxacillin 0.5 S Rifampicin <=0.5 S Tetracycline <=1 S Tigecycline <=0.12 S Trimeth/Sulfa <=10 S Vancomycin 1 S Cefoxitin Sc (+/-) Negative - ICR (+/-) Negative -[facility]-LufkinXR CHEST AP/PA 1 [id number] 05:15:17Procedure: XR CHEST AP/PA 1 VIEWOrder Date: 09/30/2018 8:28 PMOrdering Provider: DIMAS Haskinsinical Indication: [id number]: Acute chest painComparison: May 13, 2017Findings:Cardiac size is magnified by technique.Pulmonary vasculature is normal.Mediastinal contour is normal.Aortic contour is normal.There is no consolidation or effusion.There is no evidence of active tuberculosis.There is no mass or pneumothorax.There is no skeletal abnormality.Impression: Negative AP portable chest x-ray.This final report was electronically signed by Dr Farzad Dewitt MD 10/01/20185:08 AMDictated By: FARZAD DEWITTDate: 10/01/2018 05:08 [facility]AHACH[facility]CT ABDOMEN/PELVIS W/O [id number] 00:42:26NPO 4 hours. Do not withhold medsEXAM:CT [...] 201812:42 AM CDT.Dictated By: REHAN AZARDate: 10/01/2018 00:42[facility] OF [id number] 21:37:00 Test Item Value Reference Range Interpretation Comments Lipase (test code = LIPA) 82 U/L 73-393 [facility] (LIVER)2018-09-30 21:37:00 Test Item Value [...] (test code = 0.5 mg/dl 0.0-1.1 IBIL) [facility] CHEM [id number] 21:10:00 Test Item Value Reference Range Interpretation [...] code = CREA) 0.5 mg/dl 0.6-1.3 L [facility] CBC WITH AUTO [id number] 21:09:00 Test Item Value Reference Range Interpretation [...] (test code = IG%) 0.3 % 0.0-0.4 [facility]conomowocRoberto W/WO TUBE,RKP-[id number] 12:44:00 RUN DATE: 09/04/18 [facility] PAGE 1 RUN TIME: 1454 Specimen Inquiry RUN USER: INTERFACE -PATIENT: [facility] #: [id number] LOC: [facility] #: [id number] AGE/SX: 33/F ROOM: [facility] RE09/02/18REG DR:Elmer Flores : 87 BED: A DIS: 09/03/18 STATUS: DIS Coty TLOC: SPEC #: [id number] RECD: 09/02/18 STATUS: KWAME RADHA #: [id number] MELISSA: 09/02/18- SUBM DR: Elmer Flores III ENTERED: 09/03/18 SP TYPE: MUSA PELAYO DR: ORDERED: LEVEL IV CODES: [id number] - OVARY, NOS PROCEDURES: LEVEL IV (Incomplete) TISSUES: OVARY, NOS - RIGHT OVARIAN CYST CLINICAL HISTORY 33 year old, acute pelvic pain (wpd) FINAL DIAGNOSIS Right ovarian cyst, excision: - benign simple cyst of ovary Tissue code 1 CPT code(s): 67857 [facility] 09/04/18 GROSS DESCRIPTION [...] identifiable excrescences. The cut surfaces of the cystwall displays a thin rim of ovarian stroma with multiple yellow-orange, centrally hemorrhagic corpora lutea. Regional Guide sections are submitted as A and B. telma/bere 09/03/18 @ 1343 Signed Amaris Wharton MD 09/04/18 1244 END OF REPORT CBC W/AUTO [id number] 03:10:00 Test Item Value Reference Range Interpretation [...] NORMAL NORMAL code = PLTMR) CHEMISTRY 7 [id number] 14:15:00 Test Item Value Reference Range Interpretation [...] CA) 9.2 mg/dL 8.4-10.2 N CBC W/AUTO [id number] 13:42:00 Test Item Value Reference Range Interpretation [...] NORMAL NORMAL code = PLTMR) US INTRAVAGINAL [id number] 12:35:09Procedure: Pelvic ultrasound.CLINICAL INDICATION: Pelvic pain. Status [...] MD 09/01/201812:28 PMDictated By: WILEY VELÁZQUEZDate: 09/01/2018 12:28[facility] CBC WITH AUTO [id number] 11:31:00 Test Item Value Reference Range Interpretation [...] RS88 71 on 09/01/2018 11:31 ONLY AVAILABLE [address] [place] [address]-LufkinCT ABDOMEN/PELVIS W/O [id number] 11:11:01MLP CProcedure: CT ABDOMEN/PELVIS W/O CONTRASTOrder Date: 09/01/2018 9:28 AMOrdering Provider: CHIN LORENZANAClinical Indication: [id number]: Abdominal pain. Left lower quadrant painComparison: 12/24/2017TECHNIQUE:CT [...] Benitez MD 09/01/201811:04 AMDictatedBy: GLORY BENITEZKDate: 09/01/2018 11:04[facility] CHEM [id number] 10:26:00 Test Item Value Reference Range Interpretation [...] CREA) 0.4 mg/dl 0.6-1.3 L ONLY AVAILABLE [address] [place] [address]-LufkinSTAT LAB URINALYSIS WITHOUT [id number] 09:59:00 Test Item Value Reference Range Interpretation Comments Color (test code = UCOLR) Yellow Lt. Yellow A Clarity (test code = UCLAR) Clear Glucose (test code = UGLUC) NEGATIVE Negative A Bilirubin (test code = UBILI) NEGATIVE Negative A Ketones (test code = UKET) NEGATIVE Negative A Specific Egan (test code = USPGR) 1.015 1.005-1.030 A Blood (test code = UBLD) NEGATIVE Negative A PH (test code = UPH) 7.0 4.5-8.0 A Protein (test code = UPROT) NEGATIVE Negative A Urobilinogen (test code = U UROB) 0.2 >0.2 N Nitrite (test code = UNITR) NEGATIVE Negative A Leukocyte Esterase (test code = NEGATIVE Negative A ULEUK) ONLY AVAILABLE [address] [place] [address]-LufkinUS INTRAVAGINAL PELVIS 2018-05-13 13:26:23Procedure: Pelvic ultrasound.CLINICAL INDICATION: PELVIC PAIN: Pain-Pelvic. Last menstrual period wasunknown. Partial hysterectomy.Order Date: 05/13/2018 11:44 AMCOMPARISON: December 26, 2017TECHNIQUE: Transabdominal and endovaginal sonography was performedFINDINGS:Status post partial hysterectomy.The right ovary is normal in size and echogenicity. No evidence of ovariantorsion. Multiple right-sided ovarian cysts are noted, largest of whichmeasuring 5.8 cm. Overall findings are stable. No new nodular components orconcerning soft tissue mass.Status post left oophorectomy. There is no free fluid.IMPRESSION:1. Stable appearing multiloculated right ovary with large appearing simplecysts. No new concerningnodular component or solid mass.2. Status post hysterectomy and left oophorectomy.This final report was electronically signed by Dr Wiley Velázquez MD 05/13/20181:20 PMDictated By: WILEY VELÁZQUEZDate: 05/13/2018 13:20[facility] CBC WITH AUTO [id number] 12:22:00 Test Item Value Reference Range Interpretation [...] (test code = 0.2 % 0.0-0.4 IG%) [facility] CBC WITH AUTO [id number] 11:54:00 Test Item Value Reference Range Interpretation [...] 0.5 % 0.0-0.4 H IG%) ONLY AVAILABLE [address] [place] [address] LAB URINALYSIS WITHOUT [id number] 11:25:00 Test Item Value Reference Range Interpretation Comments Color (test code = UCOLR) Yellow Lt. Yellow A Clarity (test code = UCLAR) Clear Glucose (test code = UGLUC) NEGATIVE Negative A Bilirubin (test code = UBILI) NEGATIVE Negative A Ketones (test code = UKET) NEGATIVE Negative A Specific Egan (test code = USPGR) 1.020 1.005-1.030 A Blood (test code = UBLD) NEGATIVE Negative A PH (test code = UPH) 7.0 4.5-8.0 A Protein (test code = UPROT) NEGATIVE Negative A Urobilinogen (test code = U UROB) 0.2 >0.2 N Nitrite (test code = UNITR) NEGATIVE Negative A Leukocyte Esterase (test code = NEGATIVE Negative A ULEUK) ONLY AVAILABLE [address] [place] [address] LAB , URINE 2018-05-13 11:25:00 Test Item Value Reference Range Interpretation Comments (Urine) (test code = Negative PREGU) ONLY AVAILABLE [address] [place] [address] LAB CHEM [id number] 11:23:00 Test Item Value Reference Range Interpretation [...] CREA) 0.5 mg/dl 0.6-1.3 L ONLY AVAILABLE 8A-12[facility] INTRAVAGINAL PELVIS 2017-12-24 12:50:53Procedure: Pelvic ultrasound.CLINICAL INDICATION: Right adnexal mass. [...] MD 12/24/201712:44 PMDictated By: WILEY VELÁZQUEZDate: 12/24/2017 12:50[facility]URINAL[facility] WITH [id number] 10:22:00 Test Item Value Reference Range Interpretation Comments Color (test code = UCOLR) Yellow Clarity (test code = UCLAR) Clear Glucose (test code = UGLUC) NEGATIVE NEGATIVE N Bilirubin (test code = UBILI) NEGATIVE NEGATIVE N Ketones (test code = UKET) NEGATIVE NEGATIVE N Specific Egan (test code = USPGR) 1.025 1.005-1.030 A [...] code = UBACT) Trace None Seen,Trace N [facility] [id number] 10:05:00 Test Item Value Reference Range Interpretation Comments Lipase (test code = LIPA) 40 U/L 8-223 [facility]-[id number] 10:05:00 Test Item Value Reference Range Interpretation [...] ( 4 - SerumAlbumin)] EGFR if >60 English (test code mL/min/1.73m\\ = EGFRAA) S\\2 EGFR if Non- >60 Estimate d Glomerular English (test code mL/min/1.73m\\ Filtrat ion Rate (eGFR) [...] and management of c hronic kidney failure. [facility] A[facility]/ PELVIS W/O CON (RENAL STONE)2017-12-24 09:38:31Procedure: CT ABD/ PELVIS W/O CON (RENAL STONE)Order date: 12/24/2017 8:36 AMOrdering Provider: Jasinical Indication: ABD PAIN: Pain- Abdominalbilateral flank pain [...] MD 12/24/20179:32 AMDictated By: WILEY VELÁZQUEZDate: 12/24/2017 09:38[facility] WITH AUTO DIFF 2017-12-24 09:26:00 Test Item Value Reference Range Interpretation [...] = 0.6 % 0.0-0.4 H IG%) AUTO [facility] ABD/ PELVIS W/O CON (RENAL STONE) 2017-06-21 03:20:09er 16EXAM:CT Abdomen and Pelvis Without Intravenous [...] dose is matched to indication;i.e. head); or ite rative reconstruction technique.COMPARISON:CT ABDOMEN/PELVIS W/CONTRAST 2016-07-31 14:25FINDINGS:Lower thorax: [...] signed by Marvin Dobbs MD on 3:19 AMCDT.Dictated By: MARVIN DOBBSDate: 06/21/2017 03:20[facility] WITH [id number] 03:20:00 Test Item Value Reference Range Interpretation Comments Color (test code = UCOLR) YELLOW Clarity (test code = UCLAR) CLEAR Glucose (test code = UGLUC) NEGATIVE NEGATIVE N Bilirubin (test code = UBILI) NEGATIVE NEGATIVE N Ketones (test code = UKET) NEGATIVE NEGATIVE N Specific Egan (test code = 1.020 1.005-1.030 A USPGR) [...] = UBACT) None Seen None Seen,Trace N [address]-[id number] 03:07:00 Test Item Value Reference Range Interpretation [...] ( 4 - SerumAlbumin)] EGFR if >60 English (test code mL/min/1.73m\\ = EGFRAA) S\\2 EGFR if Non- >60 Estimate d Glomerular English (test code mL/min/1.73m\\ Filtrat ion Rate (eGFR) [...] and management of c hronic kidney failure. [address]ASE, [id number] 03:07:00 Test Item Value Reference Range Interpretation Comments Lipase (test code = LIPA) 61 U/L 8-[address] WITH AUTO [id number] 03:05:00 Test Item Value Reference Range Interpretation [...] (test code = 0.4 % 0.0-0.4 IG%) [address]-[place]kinXR CHEST 2 PA [id number] 19:56:04 Procedure: XR CHEST 2 PA LATERALExam date: 05/13/2017 3:53 PMOrdering Provider: DR ASA BLOOMClinical Indication: fatigue, Chest painComparison: March 15, 2016Findings:Cardiomediastinal silhouette is within normal limits.The lungs are clear.No pleural effusion or pneumothorax. Osseous structures are nonacute.No evidence of active tuberculosis.Impression:No acute cardiopulmonary process.This final report was electronically signed by Dr Wiley Velázquez MD 05/13/20177:49 PMDictated By: WILEY VELÁZQUEZDate: 05/13/2017 19:55[id number] 16:53:00 Test Item Value Reference Range Interpretation [...] ( 4 - SerumAlbumin)] EGFR if >60 English (test code mL/min/1.73m\\ = EGFRAA) S\\2 EGFR if Non- >60 Estimate d Glomerular English (test code mL/min/1.73m\\ Filtrat ion Rate (eGFR) [...] and management of c hronic kidney failure. [facility] (HEMOGRAM ONLY)2017-05-13 16:32:00 Test Item Value Reference [...] WILL BE NOTED ON THE RE PORT. [facility] WITH [id number] 18:25:00 Test Item Value Reference Range Interpretation Comments Color (test code = UCOLR) YELLOW Clarity (test code = UCLAR) CLEAR Glucose (test code = UGLUC) NEGATIVE NEGATIVE N Bilirubin (test code = UBILI) NEGATIVE NEGATIVE N Ketones (test code = UKET) NEGATIVE NEGATIVE N Specific Egan (test code = 1.025 1.005-1.030 A USPGR) [...] UR MISC) None Seen None Seen N [facility] CenterLufkinHEPATIC FUNCTION PANEL (LIVER)2016-10-09 18:21:00 Test Item Value [...] (test code = 0.1 mg/dl 0.0-1.1 IBIL) [facility]-[id number] 18:21:00 Test Item Value Reference Range Interpretation [...] mg/dl 8.4-10.2 = CALC) EGFR if >60 English (test code mL/min/1.73m\\ = EGFRAA) S\\2 EGFR if Non- >60 Estimate d Glomerular English (test code mL/min/1.73m\\ Filtrat ion Rate (eGFR) [...] and management of c hronic kidney failure. [facility] WITH AUTO [id number] 18:04:00 Test Item Value Reference Range Interpretation [...] Auto (test code = 0 NRBC_AUTO) AUTO [facility]
[2022-04-20] MEDS ORDERED: DIPHENHYDRAMINE 50 MG/ML VIAL ONE (14:19)
[2022-04-20] MEDS ORDERED: METOCLOPRAMIDE 10 MG/2mL INJ ONE (14:19)
[2022-04-20] MEDS ORDERED: FAMOTIDINE 20 MG/2 ML VIAL IV ONE (14:20)
[2022-04-20] MEDS ORDERED: LORazepam 2 MG/ML VIAL ONE (14:20)
[2022-04-20] MEDS ORDERED: NA CHLORIDE 0.9% 50 ML IV ONE (14:20)
[2022-04-20] MEDS ORDERED: NA CHLORIDE 0.9% 500 ML ONE (14:23)
[2022-04-20 15:00] LABS: Absolute Lymphocytes (CBC) 1.6 K/uL (0.7-4.9); Hematocrit 39.3 % (36.0-45.0); Lymphocytes % 12.9 % (15.3-44.8); MCV 88.5 fL (80-100); MPV 6.9 fL (7.6-11.3); RBC Red Blood Cell Count 4.44 M/uL (3.86-4.86)
[2022-04-20 15:08] LABS: Protime INR 1.04
[2022-04-20 15:21] LABS: ALT/SGPT 19 U/L (12-78); AST/SGOT 9 U/L (15-37); Albumin 3.3 g/dL (3.4-5.0); Alkaline Phosphatase 119 U/L (45-117); BUN Blood Urea Nitrogen 10 mg/dL (7-18); Bicarbonate 27 mmol/L (21-32); Bilirubin Direct < 0.1 mg/dL (0-0.2); Bilirubin Total 0.4 mg/dL (0.2-1.0); Glomerular Filtration Rate 112 ml/min (=/>90); Glucose Level 103 mg/dL (74-106); Magnesium 2.2 mg/dL (1.8-2.4); NT PRO-BNP 64 pg/mL (<125); Potassium 3.6 mmol/L (3.5-5.1); Protein, Total 7.6 g/dL (6.4-8.2); Sodium Level 136 mmol/L (136-145); Troponin High Sensitivity 3.4 pg/mL (<58.9)
[2022-04-20] MEDS ORDERED: ONDANSETRON 4 MG/2 ML VIAL ONE (15:31)
[2022-04-20] MEDS ORDERED: MEPERIDINE HCL 25 MG/ML SYR ONE (15:31)
--- NOTE | 2022-04-20 16:19 | RAD REPORT ---
EXAM DESCRIPTION: CT - Angio Aorta For Dissection - 04/20/2022 3:59 pm CLINICAL HISTORY: chest pain, vomiting COMPARISON: None. TECHNIQUE: Dynamically enhanced 3 mm thick images of the chest, abdomen, and pelvis were obtained du ring administration of approximately 150mL Isovue 370 IV contrast. Sagittal and coronal reconstructio n images were generated using MIP and reviewed. Exam utilizes a protocol to evaluate entire course of the aorta. All CT scans are performed using dose optimization technique as appropriate and may include automated exposure control or mA/KV adjustment according to patient size. FINDINGS: Aorta is normal in diameter with no dissection or other acute aortic findings. Reconstruct ion images show no significant findings. Pulmonary arteries are normal as well. No cardiomegaly, pericardial thickening or pericardial effusio n. Bilateral posterior gutter atelectasis present with no acute lung parenchymal process suspected. No p leural thickening, pleural effusion or pneumothorax. No abnormal mediastinal or hilar mass or lymphadenopathy seen. No chest wall mass or abnormal axillar y lymphadenopathy. Celiac, SMA and renal arteries show no suspicious findings. Solid abdominal viscera and bowel show no acute findings. Liver shows fatty infiltration change. Gallbladder is absent. No biliary tree dilata tion. Gastric surgical changes are present with no acute component seen. No mass or abnormal lymphad enopathy. No free air, free fluid or inflammatory stranding. No urinary bladder abnormality. IMPRESSION: Negative CT scan of the aorta for acute or significant finding. No other acute or emergent findings in the chest, abdomen or pelvis. Nonacute findings are detailed i n the body of the report.
--- NOTE | 2022-04-20 16:36 | ER ---
Nurse's Notes [facility] Name: Hong Pace Age: 36 yrs Sex: Female : 1985 Arrival Date: 04/20/2022 Time: 13:19 Bed 14 Private MD: Eben Valerio Diagnosis: Vomiting Presentation: 04/20 13:46 Chief complaint: Chief complaint: Patient states: feels like she can't swallow, feels iw like something is stuck , hurts to breath, started about an hour ago, when she tried to drink water she vomited , ate her breakfast normally. 13:47 Coronavirus screen: At this time, the client does not indicate any symptoms associated iw with coronavirus-19. Ebola Screen: Patient negative for fever greater than or equal to 101.5 degrees Fahrenheit, and additional compatible Ebola Virus Disease symptoms Patient denies exposure to infectious person. Patient denies travel to an Ebola-affected area in the 21 days before illness onset. No symptoms or risks identified at this time. Initial Sepsis Screen: Does the patient meet any 2 criteria? No. Patient's initial sepsis screen is negative. Does the patient have a suspected source of infection? No. Patient's initial sepsis screen is negative. Risk Assessment: Do you want to hurt yourself or someone else? Patient reports no desire to harm self or others. Onset of symptoms was April 20, 2022. 13:47 Method Of Arrival: Wheelchair iw 13:47 Acuity: [place] 2 iw DENTAL SURGERY DOCTOR: 16:45 LMP 04/04/2022 db Historical: - Allergies: 13:51 Morphine; iw 13:51 Motrin; iw 13:51 Toradol; iw - Home Meds: 13:51 levothyroxine 75 mcg cap 1 cap once daily [Active]; Premarin 1.25 mg Oral tab 1 tab iw once daily [Active]; - PMHx: 13:51 Endometriosis of vagina; melanoma; iw - PSHx: 13:51 section; Cholecystectomy; hysterectomy; Multiple abdominal surgeries; Ovary iw removal; Thyroidectomy; - Immunization history:: Adult Immunizations. - Social history:: Smoking status: Patient denies any tobacco usage or history of. Screenin:56 Abuse screen: Denies threats or abuse. Denies injuries from another. Nutritional db screening: No deficits noted. Tuberculosis screening: No symptoms or risk factors identified. Fall Risk None identified. No fall in past 12 months (0 pts). No secondary diagnosis (0 pts). IV access (20 points). Ambulatory Aid- None/Bed Rest/Nurse Assist (0 pts). Gait- Normal/Bed Rest/Wheelchair (0 pts) Mental Status- Oriented to own ability (0 pts). Total Puentes Fall Scale indicates No Risk (0-24 pts). Assessment: 14:20 Reassessment: Patient is alert, oriented x 3, equal unlabored respirations, skin db warm/dry/pink. General: Appears distressed, uncomfortable, Behavior is cooperative, anxious, restless. Pain: Complains of pain in neck Pain does not radiate. states pain started about 2 hours ago is unable to get fluid down Pain began 2 hours ago. Cardiovascular: No deficits noted. 14:20 Neuro: No deficits noted. Level of Consciousness is awake, alert, obeys commands, db Oriented to person, place, time, Appropriate for age Speech is normal. Respiratory: No deficits noted. GI: Reports upper abdominal pain. 15:47 Reassessment: pt medicated with demerol 25 mg IVP, semiconductor processing technician attempted to transport pt to CT but pt refused, pt then called PA into room, pt asked PA to give her a second dose of demerol, pt advised that it has only been approx 7 minutes since her last IV dose , pt advised that we need to rule out any emergent issue by having the CT done, pt reluctantly agrees to have CT completed before administering any more IV pain meds. Vital Signs: 13:47 BP 149 / 94; Pulse 91; Resp 18; Temp 97.0; Pulse Ox 95% on R/A; Weight 108.86 kg; iw Height 5 ft. 4 in. (162.56 cm); Pain 10/10; 14:00 BP 130 / 85; Pulse 88; Resp 16; Pulse Ox 97% ; Pain 10/10; db 15:00 BP 123 / 77; Pulse 88; Resp 16; Pulse Ox 99% ; db 15:30 BP 134 / 81; Pulse 84; Resp 16; Pulse Ox 99% ; db 13:47 Body Mass Index 41.20 (108.86 kg, 162.56 cm) ED Course: 13:19 Patient arrived in ED. mr 13:19 Teodoro Eben is Private Physician. mr 13:34 [facility]. jmm 13:34 Cole Disla MD is Attending Physician. jmm 13:49 Triage completed. iw 13:52 Marge Crawford, RN is Primary Nurse. db 13:52 Arm band placed on. iw 14:25 EKG done, by ED staff. tm3 14:30 Inserted saline lock: 20 gauge in left antecubital area, using aseptic technique. Blood db collected. Patient maintains SpO2 saturation greater than 95% on room air. 14:56 Patient has correct armband on for positive identification. Bed in low position. Call db light in reach. Side rails up X 1. Pulse ox on. NIBP on. 16:01 CT Aorta for Dissection In Process Unspecified. EDMS 16:45 No provider procedures requiring assistance completed. db 16:45 IV discontinued, intact, bleeding controlled, No redness/swelling at site. db Administered Medications: 14:45 Drug: Pepcid (famotidine) 20 mg Route: IVP; Site: left antecubital; db 16:42 Follow up: Response: No adverse reaction db 14:45 Drug: Ativan (LORazepam) 1 mg Route: IVP; Site: left antecubital; db 16:42 Follow up: Response: No adverse reaction db 14:51 Not Given (Patient Refused): diphenhydrAMINE 25 mg IVP once db 14:51 Not Given (Patient Refused): Reglan (metoCLOPramide) 10 mg IVP once; put in 500 ml bolusdb 15:21 CANCELLED (Duplicate Order): GlucaGen (glucagon) 1 mg IVP once jmm 15:36 Drug: Zofran (Ondansetron) 4 mg Route: IVP; Site: left antecubital; iw 16:40 Follow up: Response: No adverse reaction db 15:36 Drug: Demerol (meperidine) 25 mg Route: IVP; Site: left antecubital; iw 16:40 Follow up: Response: No adverse reaction db 16:39 Not Given (Patient Eloped): Ketamine 10 mg IVP once db 16:40 Not Given (Patient Eloped): GlucaGen (glucagon) 1 mg IVP once db Medication: 16:46 VIS not applicable for this client. db Outcome: 16:36 Discharge ordered by MD. best 16:43 AMA Other patient states wants to leave and go to another hospital. Notified provider. db AMA form signed 16:43 Condition: stable 16:43 Instructed on follow up and referral plans. need to return if gets worse or if symptoms are still present 16:48 Patient left the ED. db Signatures: Dispatcher [employer] EDMS Zulma Stu tm3 Phil Coley PA PA jmm Rivera, Mary mr Desiree Miranda RN RN iw Benton, Danielle, RN RN db Corrections: (The following items were deleted from the chart) 13:49 13:46 Chief complaint: iw andrzej
--- NOTE | 2022-04-20 16:36 | EDPHYS ---
Physician Documentation [facility] Name: Hong Pace Age: 36 yrs Sex: Female : 1985 Arrival Date: 04/20/2022 Time: 13:19 Bed 14 Private MD: Eben Valerio ED Physician Cole Disla HPI: 04/20 13:44 This 36 yrs old Female presents to ER via Wheelchair with complaints of Chest Pain. jmm 13:44 This is a 36-year-old female with a history of endometriosis, chronic abdominal pain, jmm that presents emergency department with complaints of multiple episodes of vomiting chest pain with a foreign body sensation. Patient states she feels something is stuck in her chest. Denies similar episodes in the past.. DOFFER: 16:45 LMP 04/04/2022 db Historical: - Allergies: 13:51 Morphine; iw 13:51 Motrin; iw 13:51 Toradol; iw - Home Meds: 13:51 levothyroxine 75 mcg cap 1 cap once daily [Active]; Premarin 1.25 mg Oral tab 1 tab iw once daily [Active]; - PMHx: 13:51 Endometriosis of vagina; melanoma; iw - PSHx: 13:51 section; Cholecystectomy; hysterectomy; Multiple abdominal surgeries; Ovary iw removal; Thyroidectomy; - Immunization history:: Adult Immunizations. - Social history:: Smoking status: Patient denies any tobacco usage or history of. ROS: 13:44 Constitutional: Negative for fever, chills, and weight loss. jm 13:44 Cardiovascular: Positive for chest pain. 13:44 Abdomen/GI: Positive for abdominal pain, nausea and vomiting. 13:44 All other systems are negative. Exam: 13:44 Head/Face: atraumatic. Eyes: EOMI, no conjunctival erythema appreciated ENT: Moist jm Mucus Membranes Neck: Trachea midline, Supple Chest/axilla: Normal chest wall appearance and motion. Cardiovascular: Regular rate and rhythm. No edema appreciated Respiratory: Normal respirations, no respiratory distress appreciated 13:44 Back: Normal ROM Skin: General appearance color normal MS/ Extremity: Moves all extremities, no obvious deformities appreciated, no edema noted to the lower extremities Neuro: Awake and alert 13:44 Constitutional: The patient appears alert, awake, anxious, uncomfortable. 13:44 Abdomen/GI: Inspection: abdomen appears normal, Bowel sounds: normal, Palpation: soft, mild abdominal tenderness, in the epigastric area. 13:44 Psych: Behavior/mood is anxious. Vital Signs: 13:47 BP 149 / 94; Pulse 91; Resp 18; Temp 97.0; Pulse Ox 95% on R/A; Weight 108.86 kg; iw Height 5 ft. 4 in. (162.56 cm); Pain 10/10; 14:00 BP 130 / 85; Pulse 88; Resp 16; Pulse Ox 97% ; Pain 10/10; db 15:00 BP 123 / 77; Pulse 88; Resp 16; Pulse Ox 99% ; db 15:30 BP 134 / 81; Pulse 84; Resp 16; Pulse Ox 99% ; db 13:47 Body Mass Index 41.20 (108.86 kg, 162.56 cm) iw MDM: 13:44 Patient medically screened. [facility] 16:35 Data reviewed: vital signs, nurses notes. Counseling: I had a detailed discussion with [facility] the patient and/or guardian regarding: the historical points, exam findings, and any diagnostic results supporting the discharge/admit diagnosis, lab results, radiology results, the need to transfer to another facility. 17:59 ED course: Patient noted initially refused Reglan and Benadryl stating that she did not jm like how it made her feel in the past. Patient then requested opioid pain medication, in particular Demerol. I did administer 25mg, but patient states that this did not help her. Patient requested a larger dose. I did discuss with the patient that I would not be giving her any more opioid medication. The patient CTA aorta was negative. I discussed results with the patient, patient states she still felt like there was something stuck in her chest. I did recommend transfer for GI evaluation with endoscopy. I did discuss there could still be a life-threatening cause of her discomfort. Patient elected to leave the ER and follow-up using private vehicle. Patient was otherwise given strict return precautions.. 04/20 13:45 Order name: Basic Metabolic Panel; Complete Time: 15:30 [facility] 04/20 13:45 Order name: CBC with Diff; Complete Time: 15:15 [facility] 04/20 13:45 Order name: LFT's; Complete Time: 15:30 [facility] 04/20 13:45 Order name: Magnesium; Complete Time: 15:30 m 04/20 13:45 Order name: NT PRO-BNP; Complete Time: 15:30 m 04/20 13:45 Order name: PT-INR; Complete Time: 15:15 m 04/20 13:45 Order name: Troponin HS; Complete Time: 15:30 [facility] 04/20 13:48 Order name: CT Aorta for Dissection; Complete Time: 16:20 [facility] 04/20 13:45 Order name: Cardiac monitoring; Complete Time: 16:46 [facility] 04/20 13:45 Order name: EKG - Nurse/Tech; Complete Time: 16:46 [facility] 04/20 13:45 Order name: IV Saline Lock; Complete Time: 15:39 m 04/20 13:45 Order name: Labs collected and sent; Complete Time: 15:39 m 04/20 13:45 Order name: O2 Per Protocol; Complete Time: 15:39 m 04/20 13:45 Order name: O2 Sat Monitoring; Complete Time: 15:39 jmm Administered Medications: 14:45 Drug: Pepcid (famotidine) 20 mg Route: IVP; Site: left antecubital; db 16:42 Follow up: Response: No adverse reaction db 14:45 Drug: Ativan (LORazepam) 1 mg Route: IVP; Site: left antecubital; db 16:42 Follow up: Response: No adverse reaction db 14:51 Not Given (Patient Refused): diphenhydrAMINE 25 mg IVP once db 14:51 Not Given (Patient Refused): Reglan (metoCLOPramide) 10 mg IVP once; put in 500 ml bolusdb 15:21 CANCELLED (Duplicate Order): GlucaGen (glucagon) 1 mg IVP once jmm 15:36 Drug: Zofran (Ondansetron) 4 mg Route: IVP; Site: left antecubital; iw 16:40 Follow up: Response: No adverse reaction db 15:36 Drug: Demerol (meperidine) 25 mg Route: IVP; Site: left antecubital; iw 16:40 Follow up: Response: No adverse reaction db 16:39 Not Given (Patient Eloped): Ketamine 10 mg IVP once db 16:40 Not Given (Patient Eloped): GlucaGen (glucagon) 1 mg IVP once db Disposition Summary: 10/21/22 16:36 Discharge Ordered Location: Home jm Condition: Stable jm Diagnosis - Vomiting jm Followup: jmm - With: Private Physician - When: 2 - 3 days - Reason: Recheck today's complaints, Continuance of care, Re-evaluation by your physician Discharge Instructions: - Discharge Summary Sheet jmm - Vomiting, Adult jmm Forms: - Medication Reconciliation Form [facility] - Thank You Letter [facility] - Antibiotic Education [facility] - Prescription Opioid Use [facility] Addendum: 04/24/2022 04:09 Co-signature as Attending Physician, Cole Disla MD I agree with the assessment and c butler plan of care. Signatures: Dispatcher [employer] EDMS Cole Disla MD MD cha Mickail, Joel, PA PA jmm Williams, Irene, RN RN Marge Masters RN RN db Corrections: (The following items were deleted from the chart) 04/20 15:01 14:29 Angio Aorta For Dissection ordered. EDID EDID 15: 15:14 GlucaGen (glucagon) 1 mg IVP once ordered. [facility] 15:40 14:54 Chest Single View+RAD.RAD.BRZ ordered. EDID EDMS
[2022-04-20 17:07] VITALS: TEMP 97
[2022-04-20 17:13] VITALS: O2SAT 99
[2022-04-20 17:14] VITALS: BP 134/81
--- NOTE | 2022-04-23 18:44 | EKG ---
Test Date: 2022-04-20 Test Time: 14:27:29 [employer]airy [employer] Worker: TM MEASUREMENT RESULTS: Intervals: Rate: 85 MN: 148 QRSD: 88 QT: 386 QTc: 459 Brumley: P: 43 MN: 148 QRS: 21 T: 13 INTERPRETIVE STATEMENTS: Normal sinus rhythm Cannot rule out Anterior infarct, age undetermined Abnormal ECG Compared to ECG 04/12/2022 01:15:22 Myocardial infarct finding now present Electronically Signed On 04-23-22 18:39:36 CDT by Reji Degroot
== END 2022-04-20 16:48 | disposition home or self-care (01) ==
LOC: ER 13:17
DX: R11.10 Vomiting, unspecified (principal); Z88.6 Allergy status to analgesic agent; N80.9 Endometriosis, unspecified
CPT/HCPCS: 36415; 71275; 74175; 80048; 80076; 83735; 83880; 84484; 85025; 85610; 93005; 96374; 96375; 99284; J1200; J2175; J2405; J2765; J7040; Q9967

== ENCOUNTER 2022-05-06 09:50 | Emergency (ER) | payer SELFPAY ==
--- OUTSIDE RECORDS SUMMARY | 2022-05-06 09:53 | XMS REPORT | Clinical Summary ---
:1985 Author Organization [facility] MD Bah Banner Address [address] [place] [address] Care Team Providers Name Role Phone Keila Valentine MD Primary Care Provider Navi Arango Unavailable Allergies Active Allergy Reactions Severity Noted [...] malignant melanoma of skin 10/26/2021 Travel after 05/06/2021 Immunizations Name Administration Dates Next Due Influenza [...] OVARIAN CYST SURGERY 08/29/2018 - Right 09/28/2018 IN EXC SKIN MALIG 0.6-1 CM 09/23/2018 Abdomen/Right Proce dure: EXCISION OF TRUNK,ARM,LEG MALIGNANT LESION OF TRUNK, right epi gastric; Surgeon: Nicolasa Valentine MD; Location: [facility] OR; Service: SURG ON C [...] Tobacco Use Types Packs/Day Years Used Date Smoking Tobacco: Former Cigarettes 0.3 10 07/2004 - 05/11/2017 Smokeless Tobacco: Never Alcohol Use Standard Drinks/Week Comments No 0 [...] Office Visit Dermatology Lisbeth Shannon M D [address] [place], [place] [address] (Wo rk) Health Maintenance Due Date Last Done Comments COVID-19 Vaccination (#1) 01/11/1987 Results Not on fileafter 05/06/2021 Advance Directives Code Status Date Activated Date Inactivated Comments Full Code 10/04/2018 8:21 PM 10/08/2018 5:55 PM Code Status Date Activated Date Inactivated Comments Full Code 09/23/2018 1:48 PM 09/23/2018 6:55 PM Care Teams Handbag Frames Inspector Relationship Specialty Start Date End Date Keila Valentine MD PCP - General Surgical Oncology 08/26/18 [address] [place] [address] Navi Arango FNP PCP - External Primary Family Practice 09/08/18 [address] [place] [address]
--- OUTSIDE RECORDS SUMMARY | 2022-05-06 10:07 | XMS REPORT | Continuity of Care Document ---
:[address] [facility] t Address [address] [place] [address] Care Team Providers Name Role Phone Keila Valentine MD Primary Care Physician Josué Arango Attending Clinician Unavailable Truman Quintero Attending Clinician Unavailable TRICE HARRIS Attending Clinician Unavailable Trice Strickland Attending Clinician Ameena Dupree Attending Clinician AMEENA PRESTON Attending Clinician Unavailable Praveen Blas MD Attending Clinician EKTA BERMUDEZ Attending Clinician Unavailable PATRICK CARRANZA Attending Clinician Unavailable Olga Clements Attending Clinician Unavailable LOZOYA, LEANNE S Attending Clinician Unavailable Lozoya PAC, Leanne S Attending Clinician SHARA GRIMM Attending Clinician Unavailable Eve Chaves RN Attending Clinician Unavailable Patrick Schumacher Attending Clinician Doctor Unassigned, Jardine Attending Clinician Unavailable SETH DYKES Attending Clinician Unavailable REHAN COTTON Attending Clinician Unavailable Viktoriya Wright RN Attending Clinician JUAN MENSAH Attending Clinician Unavailable CHIDIMR SKYE Attending Clinician Unavailable Tangela Perez Attending Clinician Unavailable DO WYATT SOTOMAYOR Attending Clinician Unavailable AMBROSIO MUÑOZ Attending Clinician Unavailable PRAVEEN BLAS Attending Clinician Unavailable ELIUD STAFFORD Attending Clinician Unavailable LIZBETH WOLFE Attending Clinician Unavailable FLOYD VERA Attending Clinician Unavailable POLLY HONG Attending Clinician Unavailable DR LEXUS MCINTOSH Attending Clinician Unavailable QUINTIN BRITO Attending Clinician Unavailable Truman Quintero Admitting Clinician Unavailable TRICE HARRIS Admitting Clinician Unavailable EKTA BERMUDEZ Admitting Clinician Unavailable Physician, No Primary or Family Admitting Clinician Unavaila ble DEVORA, LEANNE S Admitting Clinician Unavailable SETH DYKES Admitting Clinician [...] Number Effective Date Expiration Date S ramakrishna [id number] 1958 00:00:00 [facility] C1 [id number] [facility] C1 [id number] [facility] C1 [id number] [facility] [id number] 1958 00:00:00 [facility] C1 [id number] [facility] PHCS GENERIC [id number] 2018 00:00:00 Problems Condition Condition Condition Status [...] rs active active ity of problems problems [facility] [id number] Endometrio Problem Active Co mmon ma [facility] Allergies, Adverse Reactions, Alerts Allergy Allergy Status Severity Reaction(s) Onset Inactive Treating Comm ents Source Name Type Date Date Clinician ket[place] DA Active ND rash 2021-07 [facility] [place] [facility] [place] DA Active U rash [facility] 2-07 [place] 00:[facility]: [facility]ope 00 [facility] KET[place]OLA DRUG Active Low Rash 2020-07 Univers C INGREDI 2- ity of 00:00: [place] 00 [facility] [place] Propensi Active Rash 2020-07 Univer s c ty to 2-22 ity of adverse 00:00: [place] reaction 00 [facility] ket[place]ola DA Active ND [facility] c 9-10 [facility] [place] DA Active U rash [facility] c 03-24 [place] 00:[place]: d [facility] ket[place]ola DA Active U [facility] c 03-24 [place] 00:[place]: d 00 [facility] [place] Drug Active Itching Univers c Allergy 1-19 ity of 00:00: [place] 00 MD [facility] 0 Drug Active Unknown Common [facility] Family History Family Member Diagnosis Comments Start Date Stop Date Source Natural mother -Breast cancer Univer sitphoebe of [place] MD Disla [facility] Social History Social Habit Start Date Stop Date Quantity Comments Source History of Tobacco [facility] - Use [facility] Exposure to 2022-02-09 2022-02-19 Not sure University SARS-CoV-2 (event) 00:00:00 09:20:00 [facility] Tobacco use and 2021-08-29 2021-08-29 Smokeless Universit y of exposure 00:00:00 00:00:00 tobacco non-user [facility] Alcohol intake 2018-10-04 2018-10-04 Current University 00:00:00 00:00:00 non-drinker of [place] MD Lila muñoz alcohol [facility] (finding) Cigarettes smoked 2018-09-04 2018-09-04 Univers ity of current (pack per 00:00:00 00:00:00 [place] René Neely ) - Reported Cancer Ce nter Cigarette 2018-09-04 2018-09-04 University of pack-years 00:00:00 00:00:00 [place] MD Olvin banuelos [facility] At [birth year] [place] [facility]00 [place] Olvin banuelos [facility] Smoking Status Start Date Stop Date Source Tobacco smoking [facility] consumption unknown Never smoked tobacco [facility] Former Smoker 2020-05-03 00:00:00 2020-05-03 [facility] Ce nter Medications Ordered Filled Start Stop [...] Branch 02/19/22 at 0930, JOSE methylPREDN Yes [id number] Take by [place] [facility] ISolone 11-29 mouth ity of (MEDROL, 00:00: SEE-INSTRU Jacques as TE,) 4 mg 00 CTIONS. Medica l tablets follow Branch package directions methylPREDN Yes [id number] Take by [place] [facility] ISolone 11-29 mouth ity of (MEDROL, 00:00: SEE-INSTRU Jacques as TE,) 4 mg 00 CTIONS. Medica l tablets follow Branch package directions amoxicillin 2021- No [id number] 1{tbl} Take 1 Univers -clavulanat 11-29 tablet [...] s: acute pain estrogens, Yes Take by [facility] ers conjugated 3- mouth. ity of (PREMARIN 16:19: [place] ORAL) 44 Medical Branch estrogens, Yes Take by [facility] ers conjugated - mouth. ity of (PREMARIN 16:19: [place] ORAL) 44 Medical Branch naproxen Yes [id number] 500mg Take 1 U nivers (NAPROSYN) 2-02 tablet by ity of 500 mg 00:00: mouth 2 [place] tablet 00 (two) Medical times Branch daily with meals. naproxen Yes [id number] 500mg Take 1 U nivers (NAPROSYN) 2-02 tablet by ity of 500 mg 00:00: mouth 2 [place] tablet 00 (two) Medical times Branch daily with meals. albuterol 2020-07 Yes [id number] 2{puff} Inhale 2 Univers 90 2-22 Puffs [...] Cough. Indication s: cough albuterol 2020-07 Yes [id number] 2{puff} Inhale 2 Univers 90 2-22 Puffs [...] (PREMARIN 00:00: daily. [place] ORAL) [facility], 2018-07 Yes Take by Univ ers conjugated 0-23 mouth ity of (PREMARIN 00:00: daily. [place] ORAL) 00 [facility] est[facility], 2018-07 Yes Take by Univ ers conjugated 0-23 mouth ity of (PREMARIN 00:00: daily. [place] ORAL) 00 [facility] estrogens, 2018-07 Yes Take by Univ ers conjugated 0-23 mouth ity of (PREMARIN 00:00: daily. [place] ORAL) 00 [facility] estrogens, 2018-07 Yes Take by Univ ers conjugated 0-23 mouth ity of (PREMARIN 00:00: daily. [place] ORAL) 00 [facility] estrogens, 2018-07 Yes Take by Univ ers conjugated 0-23 mouth ity of (PREMARIN 00:00: daily. [place] ORAL) 00 [facility] estrogens, 2018-07 Yes Take by Univ ers conjugated 0-23 mouth ity of (PREMARIN 00:00: daily. [place] ORAL) 00 MD Chan tata [facility] estrogens, 2018-07 Yes Take by Univ ers conjugated 0-23 mouth ity of (PREMARIN 00:00: daily. [place] ORAL) 00 MD Gian payton [facility] estrogens, 2018-07 Yes Take by Univ ers conjugated 0-23 mouth ity of (PREMARIN 00:00: daily. [place] ORAL) 00 MD Springer [facility] Premarin Premarin 2018-07 Yes Kaywin 1 tablet Common 0-23 [facility] 00:00: - [facility] 00 [facility] estrogens, 2018-07 Yes Take by Univ ers conjugated 0-23 mouth ity of (PREMARIN 00:00: daily. [place] ORAL) 00 MD Springer [facility] Premarin Premarin 2018-07 No 1{table QD Premarin 1.25 MG 1.25 MG 0-23 t} 1.25 MG 00:00: 00 estrogens, 2018- Yes Take by Univ ers conjugated 0-23 mouth ity of (PREMARIN 00:00: daily. [place] ORAL) 00 [facility] Estradiol Estradiol 2018-07 Yes [place] 1 tablet Common 0-01 [facility] 00:00: - [facility] 00 [facility] citalopram Yes Univers (CeleXA) 40 9-10 ity of mg tablet 00:00: [facility] citalopram Yes Univers (CeleXA) 40 9-10 ity of mg tablet 00:00: [facility] citalopram Yes Univers (CeleXA) 40 9-10 ity of mg tablet 00:00: [place] [facility] citalopram Yes Univers (CeleXA) 40 9-10 ity of mg tablet 00:00: [facility] citalopram Yes Univers (CeleXA) 40 9-10 ity of mg tablet 00:00: [facility] citalopra Yes Univers (CeleXA) 40 9-10 ity of mg tablet 00:00: [facility] citalopram Yes Univers (CeleXA) 40 9-10 ity of mg tablet 00:00: [facility] Yes Univers (CeleXA) 40 9-10 ity of mg tablet 00:00: [facility] citalopram Yes Univers (CeleXA) 40 9-10 ity of mg tablet 00:00: [facility] citalopram Yes Univers (CeleXA) 40 9-10 ity of mg tablet 00:00: [facility] citalopram Yes Univers (CeleXA) 40 9-10 ity of mg tablet 00:00: [facility] levothyroxi 2011-0 Yes Univer s ne 175 mcg 8-10 ity of cap 00:00: [place] 00 MD [facility] levothyroxi 2010-0 Yes Univer s ne 175 mcg 8-10 ity of cap 00:00: [place] 00 MD [facility] levothyroxi 2010-0 Yes Univer s ne 175 mcg 8-10 ity of cap 00:00: [place] 00 MD [facility] levothyroxi 2010-0 Yes Univer s ne 175 mcg 8-10 ity of cap 00:00: [place] 00 MD [facility] levothyroxi 2010-0 Yes Univer s ne 175 mcg 8-10 ity of cap 00:00: [place] 00 MD Gian payton [facility] levothyroxi 2010-0 Yes Univer s ne 175 mcg 8-10 ity of cap 00:00: [place] 00 MD Gian payton [facility] levothyroxi 2010-0 Yes Univer s ne 175 mcg 8-10 ity of cap 00:00: [place] 00 MD Gian payton [facility] levothyroxi 2010-0 Yes Univer s ne 175 mcg 8-10 ity of cap 00:00: [place] 00 MD Gian payton [facility] levothyroxi 2010-0 Yes Univer s ne 175 mcg 8-10 ity of cap 00:00: [place] 00 MD Gian payton [facility] levothyroxi 2010-0 Yes Univer s ne 175 mcg 8-10 ity of cap 00:00: [place] 00 MD Gian payton [facility] levothyroxi 2010-0 Yes Univer s ne 175 mcg 8-10 ity of cap 00:00: [place] 00 MD Gian payton [facility] zolpidem 2006-0 Yes Univers (AMBIEN) 10 07-01 ity of mg tablet 00:00: [place] 00 MD [facility] zolpidem 2007-0 Yes Univers (AMBIEN) 10 07-01 ity of mg tablet 00:00: [place] 00 MD Gian payton [facility] zolpidem 2006-0 Yes Univers (AMBIEN) 10 07-01 ity of mg tablet 00:00: [place] 00 MD Gian payton [facility] zolpidem 2006-0 Yes Univers (AMBIEN) 10 07-01 ity of mg tablet 00:00: [place] 00 MD Gian payton [facility] zolpidem Yes Univers (AMBIEN) 10 07-01 ity of mg tablet 00:00: MD Gian payton [facility] zolpidem Yes Univers (AMBIEN) 10 07-01 ity of mg tablet 00:00: [facility] zolpidem Yes Univers (AMBIEN) 10 07-01 ity of mg tablet 00:00: [facility] zolpidem Yes Univers (AMBIEN) 10 07-01 ity of mg tablet 00:00: [facility] zolpidem Yes Univers (AMBIEN) 10 07-01 ity of mg tablet 00:00: [facility] zolpidem Yes Univers (AMBIEN) 10 07-01 ity of mg tablet 00:00: [facility] Yes Univers (AMBIEN) 10 07-01 ity of mg tablet 00:00: [place] [facility] acetaminoph acetaminoph Yes 1 Q5.00H CHI [...] C HI St conjugated conjugated Gutierrez es ([facility]) 1.25 ([facility]) 1.25 Mem oria MG Oral MG Oral [...] [facility] conjugated conjugated daily Olamide kes ([facility]) 1.25 ([facility]) 1.25 Mem oria MG Oral MG Oral l Tablet Tablet (LUF/LI V/SA) levothyroxi levothyroxi Yes 150ug 1xD orally [facility] (LUF/LI V/SA) Celexa Celexa Yes [place] 1 tablet Commo n [facility]iden [facility] Levothyroxi Levothyroxi Yes Kaywin 1 tablet Common ne Sodium ne Sodium Aiden on an Sp karla empty - CHI stomach in [facility] Estradiol Estradiol Yes [place] 1 patch to Common Aiden skin [facility] Promethazin Promethazin No 1{table Promethazi e HCl 25 mg e HCl 25 mg t_as_ne ne HCl 25 eded} mg Estradiol Estradiol No 1{patch Estradiol 0.1 MG/24HR 0.1 MG/24HR _to_ski 0.1 n} MG/24HR Celexa 40 Celexa 40 No 1{table QD Celexa 40 MG MG t} MG [place] No 1{table QID [place] 7.5-325 MG 7.5-325 MG t_as_ne 7.5-325 MG [...] Sodium 150 MCG 150 MCG 150 MCG [place] No 1{table QID [place] 7.5-325 MG 7.5-325 MG t_as_ne 7.5-325 MG eded} Promethazin Promethazin No 1{table Promethazi e HCl 25 mg e HCl 25 mg t_as_ne ne HCl 25 eded} mg Estradiol Estradiol No 1{patch Estradiol 0.1 MG/24HR 0.1 MG/24HR _to_ski 0.1 n} MG/24HR Premarin Premarin No 1{table QD Premarin 1.25 MG 1.25 MG t} 1.25 MG [place] No 1{table QID [place] 7.5-325 MG 7.5-325 MG t_as_ne 7.5-325 MG [...] 1.25 MG 1.25 MG t} 1.25 MG [place] No 1{table QID [place] 7.5-325 MG 7.5-325 MG t_as_ne 7.5-325 MG [...] Completed University of Unspecified 00:00:00 [place] MD Hamilton [facility] Td 2011-03-30 Completed University of 00:00:00 [place] [facility] Influenza, 2011-03-30 Completed University of Unspecified 00:00:00 [place] MD Hamilton [facility] 2011-03-30 Completed University of 00:00:00 [place] [facility] Influenza, 2011-03-30 Completed University of Unspecified 00:00:00 [place] MD Hamilton [facility] 2011-03-30 Completed University of 00:00:00 [place] [facility] Influenza, 2011-03-30 Completed University of Unspecified 00:00:00 [place] MD Hamilton [facility] Td 2011-03-30 Completed University of 00:00:00 [place] [facility] Influenza, 2011-03-30 Completed University of Unspecified 00:00:00 [place] MD [facility] Td 2011-03-30 Completed University of 00:00:00 [place] [facility] Influenza, 2011-03-30 Completed University of Unspecified 00:00:00 [place] MD [facility] Td 2011-03-30 Completed University of 00:00:00 [place] [facility] Influenza, 2011-03-30 Completed University of Unspecified 00:00:00 [place] MD Hamilton [facility] Td 2011-03-30 Completed University of 00:00:00 [place] [facility] Influenza, 2011-03-30 Completed University of Unspecified 00:00:00 [place] MD [facility] Td 2011-03-30 Completed University of 00:00:00 [place] [facility] Influenza, 2011-03-30 Completed University of Unspecified 00:00:00 [place] MD [facility] Tdap 2011-03-30 Completed University of 00:00:00 [place] MD Olvin banuelos [facility] Influenza, 2011-03-30 Completed University of Unspecified 00:00:00 [place] MD Alfonso hazel [facility] Tdap 2011-03-30 Completed University of 00:00:00 [place] Olvinharitha banuelos [facility] Influenza, 2011-03-30 Completed University of Unspecified 00:00:00 [place] MD Hamilton ilir [facility] Tdap 2011-03-30 Completed University of 00:00:00 [place] MD Olvin banuelos [facility] Influenza (IM) 2009-04-05 Completed University of Preservative Free 00:00:00 [facility] Influenza (IM) 2009-04-05 Completed University of Preservative Free 00:00:00 [facility] Influenza (IM) 2009-04-05 Completed University of Preservative Free 00:00:00 [facility] Influenza (IM) 2009-04-05 Completed University of Preservative Free 00:00:00 [facility] Influenza (IM) 2009-04-05 Completed University of Preservative Free 00:00:00 [facility] Influenza (IM) 2009-04-05 Completed University of Preservative Free 00:00:00 [facility] Influenza (IM) 2009-04-05 Completed University of Preservative Free 00:00:00 [facility] Influenza (IM) 2009-04-05 Completed University of Preservative Free 00:00:00 [facility] Influenza (IM) 2009-04-05 Completed University of Preservative Free 00:00:00 [facility] Influenza (IM) 2009-04-05 Completed University of Preservative Free 00:00:00 [facility] Influenza (IM) 2009-04-05 Completed University of Preservative Free 00:00:00 [facility] Vital Signs Vital Name Observation Time Observation Value Comments Source Systolic blood 2022-02-19 14:13:00 156 mm[Hg] Univer sity of pressure [facility] Diastolic blood 2022-02-19 14:13:00 94 mm[Hg] Unive rsity of pressure [facility] Heart rate 2022-02-19 14:13:00 111 /min [facility] Body temperature 2022-02-19 14:13:00 37.11 Ericka [facility] ersity of [place] [facility] [place] Respiratory rate 2022-02-19 14:13:00 22 /min Univ ersity [facility] [place] [facility] Body height 2022-02-19 14:13:00 162.6 cm [facility]i [facility] [place] [facility] Body weight 2022-02-19 14:13:00 104.327 kg [facility] [place] [facility] BMI 2022-02-19 14:13:00 39.48 kg/m2 [facility] [place] [facility] Oxygen saturation in 2022-02-19 14:13:00 99 /min University of Arterial blood by [place] [employer] felipa Pulse oximetry Branch Systolic blood 2021-11-29 22:40:00 116 mm[Hg] Univer sity of pressure [place] [facility] Diastolic blood 2021-11-29 22:40:00 85 mm[Hg] Unive [facility] [place] Heart rate 2021-11-29 22:40:00 87 /min Universi ty [facility] [place] [facility] [place] Body temperature 2021-11-29 22:40:00 37.28 Ericka [facility] ersity of [place] [facility] [place] Respiratory rate 2021-11-29 22:40:00 16 /min [facility] ersity of [place] [facility] Body height 2021-11-29 22:40:00 162.6 cm [facility]i [facility] [place] [facility] Body weight 2021-11-29 22:40:00 103.874 kg [facility] [place] [facility] BMI 2021-11-29 22:40:00 39.31 kg/m2 [facility] [place] [facility] Oxygen saturation in 2021-11-29 22:40:00 98 /min University of Arterial blood by [place] felipa Pulse oximetry Branch Height 2021-04-23 00:58:00 [...] Center Heart rate 2021-10-26 15:16:33 92 /min [facility] Respiratory rate 2021-10-26 15:16:33 16 /min [facility] Oxygen saturation in 2021-10-26 15:16:33 98 /min [facility] Arterial blood by Jeffrey muñoz Pulse oximetry [facility] Body Temperature 2021-04-23 00:58:00 97.8 [degF] [facility] (LUF/DAVID/SA) Pulse Rate 2021-04-23 00:58:00 116 /min [facility] (LUF/DAVID/SA) Respiratory Rate 2021-04-23 00:58:00 18 /min [facility] (F/DAVID/SA) O2% BldC Oximetry 2021-04-23 00:58:00 99 % [facility] (LUF/DAVID/SA) BP Systolic 2021-04-23 00:58:00 111 mm[Hg] [facility] (LUF/DAVID/SA) BP Diastolic 2021-04-23 00:58:00 77 mm[Hg] [facility] (LUF/DAVID/SA) Height 2021-04-23 00:58:00 64 [in_i] [facility] (LUF/DAVID/SA) Weight 2021-04-23 00:58:00 105.1 kg [facility] (LUF/DAVID/SA) BMI (Body Mass 2021-04-23 00:58:00 40 kg/m2 [facility]) [facility] (LUF/DAVID/SA) Body Temperature 2021-03-24 10:53:00 98.6 [degF] [facility] (LUF/DAVID/SA) Pulse Rate 2021-03-24 10:53:00 87 /min [facility] (F/DAVID/SA) Respiratory Rate 2021-03-24 10:53:00 18 /min [facility] (F/DAVID/SA) O2% BldC Oximetry 2021-03-24 10:53:00 97 % [facility] (LUF/DAVID/SA) BP Systolic 2021-03-24 10:53:00 120 mm[Hg] [facility] (LUF/DAVID/SA) BP Diastolic 2021-03-24 10:53:00 86 mm[Hg] [facility] (LUF/DAVID/SA) Height 2021-03-24 10:53:00 64 [in_i] [facility] (LUF/DAVID/SA) Weight 2021-03-24 10:53:00 105 kg [facility] (LUF/DAVID/SA) BMI (Body Mass 2021-03-24 10:53:00 40 kg/m2 [facility]) [facility] (LUF/DAVID/SA) Body Temperature 2021-03-10 10:55:00 98.4 [degF] [facility] (F/DAVID/SA) Pulse Rate 2021-03-10 10:55:00 85 /min [facility] (LUF/DAVID/SA) Respiratory Rate 2021-03-10 10:55:00 20 /min [facility] (LUF/DAVID/SA) O2% BldC Oximetry 2021-03-10 10:55:00 100 % [facility] (LUF/DAVID/SA) BP Systolic 2021-03-10 10:55:00 140 mm[Hg] [facility] (LUF/DAVID/SA) BP Diastolic 2021-03-10 10:55:00 98 mm[Hg] [facility] (LUF/DAVID/SA) Height 2021-03-10 10:55:00 64 [in_i] [facility] (F/DAVID/SA) Weight 2021-03-10 10:55:00 105.2 kg [facility] (LUF/DAVID/SA) BMI (Body Mass 2021-03-10 10:55:00 40 kg/m2 [facility] (LUF/DAVID/SA) Pulse Rate 2021-02-23 12:32:00 67 /min [facility] (LUF/DAVID/SA) O2% BldC Oximetry 2021-02-23 12:32:00 98 % [facility] (LUF/DAVID/SA) BP Systolic 2021-02-23 12:32:00 112 mm[Hg] [facility] (LUF/DAVID/SA) BP Diastolic 2021-02-23 12:32:00 70 mm[Hg] [facility] (LUF/DAVID/SA) Heart Rate 2021-02-23 11:16:00 64 /min [facility] (LUF/DAVID/SA) Respiratory Rate 2021-02-23 11:16:00 14 /min [facility] (F/DAVID/SA) Body Temperature 2021-02-23 08:24:00 98.1 [degF] [facility] (LUF/DAVID/SA) Height 2021-02-23 08:24:00 64 [in_i] [facility] (LUF/DAVID/SA) Weight 2021-02-23 08:24:00 110 kg [facility] (LUF/DAVID/SA) BMI (Body Mass 2021-02-23 08:24:00 41.9 kg/m2 [facility] (LUF/DAVID/SA) Heart Rate 2021-01-10 01:46:00 93 /min [facility] (LUF/DAVID/SA) Pulse Rate 2021-01-10 01:46:00 95 /min [facility] (LUF/DAVID/SA) Respiratory Rate 2021-01-10 01:46:00 16 /min [facility] (F/DAVID/SA) O2% BldC Oximetry 2021-01-10 01:46:00 97 % [facility] (F/DAVID/SA) BP Systolic 2021-01-10 01:46:00 103 mm[Hg] [facility] (LUF/DAVID/SA) BP Diastolic 2021-01-10 01:46:00 71 mm[Hg] [facility] (F/DAVID/SA) Weight 2021-01-10 00:53:00 102 kg [facility] (F/DAVID/SA) Body Temperature 2021-01-10 00:47:00 98.6 [degF] [facility] (F/DAVID/SA) Pulse Rate 2020-12-12 14:20:00 87 /min [facility] (F/DAVID/SA) O2% BldC Oximetry 2020-12-12 14:20:00 98 % [facility] (F/DAVID/SA) BP Systolic 2020-12-12 14:20:00 128 mm[Hg] [facility] (LUF/DAVID/SA) BP Diastolic 2020-12-12 14:20:00 86 mm[Hg] [facility] (F/DAVID/SA) Body Temperature 2020-12-12 12:39:00 98.9 [degF] [facility] (F/DAVID/SA) Respiratory Rate 2020-12-12 12:39:00 20 /min [facility] (F/DAVID/SA) Weight 2020-12-12 12:39:00 102 kg [facility] (LUF/DAVID/SA) Body Temperature 2020-12-08 10:27:00 98.6 [degF] [facility] (LUF/DAVID/SA) Pulse Rate 2020-12-08 10:27:00 79 /min [facility] (LUF/DAVID/SA) Respiratory Rate 2020-12-08 10:27:00 16 /min [facility] (LUF/DAVID/SA) O2% BldC Oximetry 2020-12-08 10:27:00 99 % [facility] (LUF/DAVID/SA) BP Systolic 2020-12-08 10:27:00 111 mm[Hg] [facility] (LUF/DAVID/SA) BP Diastolic 2020-12-08 10:27:00 57 mm[Hg] [facility] (LUF/DAVID/SA) Weight 2020-12-08 10:27:00 103 kg [facility] (F/DAVID/SA) Body Temperature 2020-11-25 00:27:00 97.9 [degF] [facility] (LUF/DAVID/SA) Pulse Rate 2020-11-25 00:27:00 82 /min [facility] (LUF/DAVID/SA) Respiratory Rate 2020-11-25 00:27:00 17 /min [facility] (LUF/DAVID/SA) O2% BldC Oximetry 2020-11-25 00:27:00 98 % [facility] (LUF/DAVID/SA) BP Systolic 2020-11-25 00:27:00 109 mm[Hg] [facility] (LUF/DAVDI/SA) BP Diastolic 2020-11-25 00:27:00 62 mm[Hg] [facility] (LUF/DAVID/SA) Heart Rate 2020-11-21 09:30:00 75 /min [facility] (LUF/DAVID/SA) Respiratory Rate 2020-11-21 09:30:00 14 /min [facility] (LUF/DAVID/SA) BP Systolic 2020-11-21 09:30:00 120 mm[Hg] [facility] (LUF/DAVID/SA) BP Diastolic 2020-11-21 09:30:00 76 mm[Hg] [facility] (LUF/DAVID/SA) Body Temperature 2020-11-21 07:15:00 98.1 [degF] [facility] (LUF/DAVID/SA) Pulse Rate 2020-11-21 07:15:00 103 /min [facility] (LUF/DAVID/SA) O2% BldC Oximetry 2020-11-21 07:15:00 100 % [facility] (F/DAVID/SA) Height 2020-11-21 07:15:00 64 [in_i] [facility] (F/DAVID/SA) Weight 2020-11-21 07:15:00 103.1 kg [facility] (LUF/DAVID/SA) BMI (Body Mass 2020-11-21 07:15:00 39.2 kg/m2 [facility] (LUF/DAVID/SA) Heart Rate 2020-11-14 13:30:00 69 /min [facility] (LUF/DAVID/SA) Pulse Rate 2020-11-14 13:30:00 70 /min [facility] (LUF/DAVID/SA) Respiratory Rate 2020-11-14 13:30:00 10 /min [facility] (LUF/DAVID/SA) O2% BldC Oximetry 2020-11-14 13:30:00 96 % [facility] (LUF/DAVID/SA) BP Systolic 2020-11-14 13:30:00 103 mm[Hg] [facility] (LUF/DAVID/SA) BP Diastolic 2020-11-14 13:30:00 77 mm[Hg] [facility] (LUF/DAVID/SA) Body Temperature 2020-11-14 09:47:00 97.4 [degF] [facility] (LUF/DAVID/SA) Weight 2020-11-14 09:47:00 103 kg [facility] (LUF/DAVID/SA) Body Temperature 2020-11-08 08:32:00 98.1 [degF] [facility] (LUF/DAVID/SA) Pulse Rate 2020-11-08 08:32:00 82 /min [facility] (LUF/DAVID/SA) Respiratory Rate 2020-11-08 08:32:00 20 /min [facility] (LUF/DAVID/SA) O2% BldC Oximetry 2020-11-08 08:32:00 100 % [facility] (LUF/DAVID/SA) BP Systolic 2020-11-08 08:32:00 129 mm[Hg] [facility] (LUF/DAVID/SA) BP Diastolic 2020-11-08 08:32:00 72 mm[Hg] [facility] (LUF/DAVID/SA) Height 2020-11-08 08:32:00 64 [in_i] [facility] (LUF/DAVID/SA) Weight 2020-11-08 08:32:00 103.1 kg [facility] (LUF/DAVID/SA) BMI (Body Mass 2020-11-08 08:32:00 39.2 kg/m2 [facility] (LUF/DAVID/SA) Body Temperature 2020-11-01 00:58:00 98.7 [degF] [facility] (F/DAVID/SA) Pulse Rate 2020-11-01 00:58:00 104 /min [facility] (LUF/DAVID/SA) Respiratory Rate 2020-11-01 00:58:00 20 /min [facility] (LUF/DAVID/SA) O2% BldC Oximetry 2020-11-01 00:58:00 99 % [facility] (LUF/DAVID/SA) BP Systolic 2020-11-01 00:58:00 133 mm[Hg] [facility] (LUF/DAVID/SA) BP Diastolic 2020-11-01 00:58:00 101 mm[Hg] [facility] (LUF/DAVID/SA) Height 2020-11-01 00:53:00 65 [in_i] [facility] (LUF/DAVID/SA) Weight 2020-11-01 00:53:00 103 kg [facility] (LUF/DAVID/SA) BMI (Body Mass 2020-11-01 00:53:00 37.8 kg/m2 [facility]) [facility] (LUF/DAVID/SA) Body Temperature 2020-10-04 23:51:00 98 [degF] [facility] (LUF/DAVID/SA) Pulse Rate 2020-10-04 23:51:00 96 /min [facility] (LUF/DAVID/SA) Respiratory Rate 2020-10-04 23:51:00 20 /min [facility] (LUF/DAVID/SA) O2% BldC Oximetry 2020-10-04 23:51:00 98 % [facility] (F/DAVID/SA) BP Systolic 2020-10-04 23:51:00 125 mm[Hg] [facility] (LUF/DAVID/SA) BP Diastolic 2020-10-04 23:51:00 73 mm[Hg] [facility] (F/DAVID/SA) Height 2020-10-04 23:47:00 65 [in_i] [facility] (F/DAVID/SA) Weight 2020-10-04 23:47:00 102.6 kg [facility] (F/DAVID/SA) BMI (Body Mass 2020-10-04 23:47:00 37.6 kg/m2 [facility]) [facility] (LUF/DAVID/SA) Body Temperature 2020-09-18 01:44:00 98.3 [degF] [facility] (LUF/DAVID/SA) Pulse Rate 2020-09-18 01:44:00 116 /min [facility] (F/DAVID/SA) Respiratory Rate 2020-09-18 01:44:00 20 /min [facility] (F/DAVID/SA) O2% BldC Oximetry 2020-09-18 01:44:00 99 % [facility] (F/DAVID/SA) BP Systolic 2020-09-18 01:44:00 127 mm[Hg] [facility] (LUF/DAVID/SA) BP Diastolic 2020-09-18 01:44:00 83 mm[Hg] [facility] (LUF/DAVID/SA) Height 2020-09-18 01:40:00 64 [in_i] [facility] (LUF/DAVID/SA) Weight 2020-09-18 01:40:00 102.8 kg [facility] (LUF/DAVID/SA) BMI (Body Mass 2020-09-18 01:40:00 39.1 kg/m2 [facility] Index) [facility] (LUF/DAVID/SA) Pulse Rate 2020-09-12 02:16:00 88 /min [facility] (LUF/DAVID/SA) O2% BldC Oximetry 2020-09-12 02:16:00 98 % [facility] (LUF/DAVID/SA) BP Systolic 2020-09-12 02:16:00 113 mm[Hg] [facility] (LUF/DAVID/SA) BP Diastolic 2020-09-12 02:16:00 64 mm[Hg] [facility] (LUF/DAVID/SA) Body Temperature 2020-09-12 00:56:00 97.9 [degF] [facility] (LUF/DAVID/SA) Respiratory Rate 2020-09-12 00:56:00 18 /min [facility] (LUF/DAVID/SA) Height 2020-09-12 00:50:00 65 [in_i] [facility] (LUF/DAVID/SA) Weight 2020-09-12 00:50:00 104.5 kg [facility] (LUF/DAVID/SA) BMI (Body Mass 2020-09-12 00:50:00 38.3 kg/m2 [facility] (LUF/DAVID/SA) Pulse Rate 2020-08-22 03:16:00 100 /min [facility] (LUF/DAVID/SA) O2% BldC Oximetry 2020-08-22 03:16:00 95 % [facility] (LUF/DAVID/SA) BP Systolic 2020-08-22 03:16:00 129 mm[Hg] [facility] (LUF/DAVID/SA) BP Diastolic 2020-08-22 03:16:00 88 mm[Hg] [facility] (LUF/DAVID/SA) Body Temperature 2020-08-22 01:35:00 98.4 [degF] [facility] (LUF/DAVID/SA) Respiratory Rate 2020-08-22 01:35:00 20 /min [facility] (LUF/DAVID/SA) Height 2020-08-22 01:35:00 64 [in_i] [facility] (LUF/DAVID/SA) Weight 2020-08-22 01:35:00 102 kg [facility] (LUF/DAVID/SA) BMI (Body Mass 2020-08-22 01:35:00 38.8 kg/m2 [facility]) [facility] (LUF/DAVID/SA) Pulse Rate 2020-08-06 03:31:00 83 /min [facility] (LUF/DAVID/SA) O2% BldC Oximetry 2020-08-06 03:31:00 96 % [facility] (LUF/DAVID/SA) BP Systolic 2020-08-06 03:31:00 127 mm[Hg] [facility] (LUF/DAVID/SA) BP Diastolic 2020-08-06 03:31:00 82 mm[Hg] [facility] (LUF/DAVID/SA) Body Temperature 2020-08-06 01:45:00 98 [degF] [facility] (LUF/DAVID/SA) Respiratory Rate 2020-08-06 01:45:00 20 /min [facility] (LUF/DAVID/SA) Height 2020-08-06 01:39:00 66 [in_i] [facility] (LUF/DAVID/SA) Weight 2020-08-06 01:39:00 104.2 kg [facility] (LUF/DAVID/SA) BMI (Body Mass 2020-08-06 01:39:00 37.3 kg/m2 [facility] Index) [facility] (LUF/DAVID/SA) Pulse Rate 2020-07-19 11:16:00 67 /min [facility] (LUF/DAVID/SA) O2% BldC Oximetry 2020-07-19 11:16:00 94 % [facility] (LUF/DAVID/SA) BP Systolic 2020-07-19 11:16:00 101 mm[Hg] [facility] (LUF/DAVID/SA) BP Diastolic 2020-07-19 11:16:00 63 mm[Hg] [facility] (F/DAVID/SA) Body Temperature 2020-07-19 07:50:00 98 [degF] [facility] (F/DAVID/SA) Respiratory Rate 2020-07-19 07:50:00 18 /min [facility] (F/DAVID/SA) Weight 2020-07-19 07:50:00 100 kg [facility] ([facility]/DAVID/SA) Heart Rate 2020-07-05 04:46:00 80 /min [facility] (F/DAVID/SA) Respiratory Rate 2020-07-05 04:46:00 15 /min [facility] (F/DAVID/SA) BP Systolic 2020-07-05 04:46:00 134 mm[Hg] [facility] (F/DAVID/SA) BP Diastolic 2020-07-05 04:46:00 60 mm[Hg] [facility] ([facility]/DAVID/SA) Body Temperature 2020-07-05 02:57:00 98 [degF] [facility] ([facility]/DAVID/SA) Pulse Rate 2020-07-05 02:57:00 82 /min [facility] ([facility]/DAVID/SA) O2% BldC Oximetry 2020-07-05 02:57:00 99 % [facility] (F/DAVID/SA) Height 2020-07-05 02:50:00 65 [in_i] [facility] ([facility]/DAVID/SA) Weight 2020-07-05 02:50:00 102.1 kg [facility] ([facility]/DAVID/SA) BMI (Body Mass 2020-07-05 02:50:00 37.5 kg/m2 [facility] (F/DAVID/SA) Body Temperature 2020-06-07 13:38:00 98.5 [degF] [facility] (LUF/DAVID/SA) Pulse Rate 2020-06-07 13:38:00 95 /min [facility] (LUF/DAVID/SA) Respiratory Rate 2020-06-07 13:38:00 20 /min [facility] (LUF/DAVID/SA) O2% BldC Oximetry 2020-06-07 13:38:00 97 % [facility] (LUF/DAVID/SA) BP Systolic 2020-06-07 13:38:00 129 mm[Hg] [facility] (LUF/DAVID/SA) BP Diastolic 2020-06-07 13:38:00 73 mm[Hg] [facility] (LUF/DAVID/SA) Height 2020-06-07 13:38:00 64 [in_i] [facility] (LUF/DAVID/SA) Weight 2020-06-07 13:38:00 99.79 kg [facility] (LUF/DAVID/SA) BMI (Body Mass 2020-06-07 13:38:00 38 kg/m2 [facility] (LUF/DAVID/SA) Body Temperature 2020-05-31 09:45:00 99.6 [degF] [facility] (LUF/DAVID/SA) Pulse Rate 2020-05-31 09:45:00 86 /min [facility] (LUF/DAVID/SA) Respiratory Rate 2020-05-31 09:45:00 18 /min [facility] (LUF/DAVID/SA) O2% BldC Oximetry 2020-05-31 09:45:00 98 % [facility] (LUF/DAVID/SA) BP Systolic 2020-05-31 09:45:00 118 mm[Hg] [facility] (LUF/DAVID/SA) BP Diastolic 2020-05-31 09:45:00 78 mm[Hg] [facility] (LUF/DAVID/SA) Height 2020-05-31 09:45:00 64 [in_i] [facility] (LUF/DAVID/SA) Weight 2020-05-31 09:45:00 99.79 kg [facility] (LUF/DAVID/SA) BMI (Body Mass 2020-05-31 09:45:00 38 kg/m2 [facility] Index) [facility] (LUF/DAVID/SA) Heart Rate 2020-04-25 20:01:00 69 /min [facility] (LUF/DAVID/SA) Pulse Rate 2020-04-25 20:01:00 71 /min [facility] (F/DAVID/SA) Respiratory Rate 2020-04-25 20:01:00 18 /min [facility] (F/DAVID/SA) O2% BldC Oximetry 2020-04-25 20:01:00 100 % [facility] (F/DAVID/SA) BP Systolic 2020-04-25 20:01:00 126 mm[Hg] [facility] (LUF/DAVID/SA) BP Diastolic 2020-04-25 20:01:00 86 mm[Hg] [facility] (F/DAVID/SA) Body Temperature 2020-04-25 16:50:00 98.4 [degF] [facility] (F/DAVID/SA) Height 2020-04-25 16:50:00 64 [in_i] [facility] (F/DAVID/SA) Weight 2020-04-25 16:50:00 220 [lb_av] [facility] (F/DAVID/SA) BMI (Body Mass 2020-04-25 16:50:00 38 kg/m2 [facility] Index) [facility] (F/DAVID/SA) Heart Rate 2020-03-20 18:18:00 112 /min [facility] (F/DAVID/SA) Pulse Rate 2020-03-20 18:16:00 93 /min [facility] (F/ADVID/SA) O2% BldC Oximetry 2020-03-20 18:16:00 92 % [facility] (F/DAVID/SA) BP Systolic 2020-03-20 18:16:00 127 mm[Hg] [facility] (F/DAVID/SA) BP Diastolic 2020-03-20 18:16:00 85 mm[Hg] [facility] (F/DAVID/SA) Body Temperature 2020-03-20 17:17:00 99.2 [degF] [facility] (LUF/DAVID/SA) Respiratory Rate 2020-03-20 17:17:00 19 /min [facility] (LUF/DAVID/SA) Height 2020-03-20 17:17:00 64 [in_i] [facility] (LUF/DAVID/SA) Weight 2020-03-20 17:17:00 106.9 kg [facility] (LUF/DAVID/SA) BMI (Body Mass 2020-03-20 17:17:00 40.7 kg/m2 [facility] (LUF/DAVID/SA) Respiratory Rate 2020-03-17 10:33:00 16 /min [facility] (LUF/DAVID/SA) Body Temperature 2020-03-17 07:54:00 97.9 [degF] [facility] (LUF/DAVID/SA) Pulse Rate 2020-03-17 07:54:00 83 /min [facility] (LUF/DAVID/SA) O2% BldC Oximetry 2020-03-17 07:54:00 96 % [facility] (LUF/DAVID/SA) BP Systolic 2020-03-17 07:54:00 107 mm[Hg] [facility] (LUF/DAVID/SA) BP Diastolic 2020-03-17 07:54:00 75 mm[Hg] [facility] (LUF/DAVID/SA) Weight 2020-03-17 00:09:00 105.6 kg [facility] (LUF/DAVID/SA) Heart Rate 2020-03-13 15:46:00 81 /min [facility] (LUF/DAVID/SA) Height 2020-03-13 15:31:00 64 [in_i] [facility] (LUF/DAVID/SA) Body Temperature 2020-03-02 15:20:00 98.6 [degF] [facility] (LUF/DAVID/SA) Pulse Rate 2020-03-02 15:20:00 86 /min [facility] (LUF/DAVID/SA) Respiratory Rate 2020-03-02 15:20:00 18 /min [facility] (LUF/DAVID/SA) O2% BldC Oximetry 2020-03-02 15:20:00 99 % [facility] (LUF/DAVID/SA) BP Systolic 2020-03-02 15:20:00 131 mm[Hg] [facility] (LUF/DAVID/SA) BP Diastolic 2020-03-02 15:20:00 85 mm[Hg] [facility] (LUF/DAVID/SA) Height 2020-03-01 10:54:00 64 [in_i] [facility] (LUF/DAVID/SA) Weight 2020-03-01 10:54:00 102 kg [facility] (LUF/DAVID/SA) BMI (Body Mass 2020-03-01 10:54:00 38.8 kg/m2 [facility] (LUF/DAVID/SA) Respiratory Rate 2020-02-27 07:47:00 16 /min [facility] (LUF/DAVID/SA) Body Temperature 2020-02-27 07:32:00 98.2 [degF] [facility] (LUF/DAVID/SA) Pulse Rate 2020-02-27 07:32:00 94 /min [facility] (LUF/DAVID/SA) O2% BldC Oximetry 2020-02-27 07:32:00 95 % [facility] (LUF/DAVID/SA) BP Systolic 2020-02-27 07:32:00 111 mm[Hg] [facility] (LUF/DAVID/SA) BP Diastolic 2020-02-27 07:32:00 56 mm[Hg] [facility] (LUF/DAVID/SA) Weight 2020-02-26 02:09:00 99.6 kg [facility] (LUF/DAVID/SA) Height 2020-02-25 10:03:00 64 [in_i] [facility] (LUF/DAVID/SA) Body Temperature 2020-02-25 00:52:00 97.9 [degF] [facility] (LUF/DAVID/SA) Pulse Rate 2020-02-25 00:52:00 118 /min [facility] (LUF/DAVID/SA) Respiratory Rate 2020-02-25 00:52:00 18 /min [facility] (LUF/DAVID/SA) O2% BldC Oximetry 2020-02-25 00:52:00 97 % [facility] (LUF/DAVID/SA) BP Systolic 2020-02-25 00:52:00 133 mm[Hg] [facility] (LUF/DAVID/SA) BP Diastolic 2020-02-25 00:52:00 67 mm[Hg] [facility] (LUF/DAVID/SA) Height 2020-02-25 00:47:00 64 [in_i] [facility] (LUF/DAVID/SA) Weight 2020-02-25 00:47:00 103.4 kg [facility] (LUF/DAVID/SA) BMI (Body Mass 2020-02-25 00:47:00 39.3 kg/m2 [facility] Index) [facility] (LUF/DAVID/SA) Body Temperature 2020-01-25 11:32:00 98.4 [degF] [facility] (LUF/DAVID/SA) Pulse Rate 2020-01-25 11:32:00 81 /min [facility] (LUF/DAVID/SA) Respiratory Rate 2020-01-25 11:32:00 14 /min [facility] (LUF/DAVID/SA) O2% BldC Oximetry 2020-01-25 11:32:00 98 % [facility] (LUF/DAVID/SA) BP Systolic 2020-01-25 11:32:00 139 mm[Hg] [facility] (LUF/DAVID/SA) BP Diastolic 2020-01-25 11:32:00 89 mm[Hg] [facility] (LUF/DAVID/SA) Height 2020-01-25 11:32:00 64 [in_i] [facility] (LUF/DAVID/SA) Weight 2020-01-25 11:32:00 100.5 kg [facility] (LUF/DAVID/SA) BMI (Body Mass 2020-01-25 11:32:00 38.2 kg/m2 [facility] Index) [facility] (LUF/DAVID/SA) Heart Rate 2019-11-24 04:16:00 84 /min [facility] (LUF/DAVID/SA) Pulse Rate 2019-11-24 04:16:00 90 /min [facility] (LUF/DAVID/SA) Respiratory Rate 2019-11-24 04:16:00 26 /min [facility] (LUF/DAVID/SA) O2% BldC Oximetry 2019-11-24 04:16:00 98 % [facility] (LUF/DAVID/SA) BP Systolic 2019-11-24 04:16:00 106 mm[Hg] [facility] (LUF/DAVID/SA) BP Diastolic 2019-11-24 04:16:00 69 mm[Hg] [facility] (LUF/DAVID/SA) Body Temperature 2019-11-24 00:54:00 98.4 [degF] [facility] (LUF/DAVID/SA) Height 2019-11-24 00:49:00 65 [in_i] [facility] (LUF/DAVID/SA) Weight 2019-11-24 00:49:00 103 kg [facility] (LUF/DAVID/SA) BMI (Body Mass 2019-11-24 00:49:00 37.8 kg/m2 [facility] (LUF/DAVID/SA) Heart Rate 2019-10-07 22:54:00 83 /min [facility] (LUF/DAVID/SA) Respiratory Rate 2019-10-07 22:54:00 14 /min [facility] (LUF/DAVID/SA) Pulse Rate 2019-10-07 22:31:00 89 /min [facility] (LUF/DAVID/SA) O2% BldC Oximetry 2019-10-07 22:31:00 97 % [facility] (LUF/DAVID/SA) BP Systolic 2019-10-07 21:16:00 127 mm[Hg] [facility] (LUF/DAVID/SA) BP Diastolic 2019-10-07 21:16:00 85 mm[Hg] [facility] (LUF/DAVID/SA) Height 2019-10-07 20:41:00 64 [in_i] [facility] (LUF/DAVID/SA) Weight 2019-10-07 20:41:00 100.2 kg [facility] (LUF/DAVID/SA) BMI (Body Mass 2019-10-07 20:41:00 38.1 kg/m2 [facility]) [facility] (LUF/DAVID/SA) Pulse Rate 2019-09-20 04:16:00 96 /min [facility] (LUF/DAVID/SA) Respiratory Rate 2019-09-20 04:16:00 9 /min [facility] (LUF/DAVID/SA) O2% BldC Oximetry 2019-09-20 04:16:00 96 % [facility] (LUF/DAVID/SA) BP Systolic 2019-09-20 04:16:00 97 mm[Hg] [facility] (LUF/DAVID/SA) BP Diastolic 2019-09-20 04:16:00 76 mm[Hg] [facility] (LUF/DAVID/SA) Body Temperature 2019-09-20 00:44:00 98 [degF] [facility] (LUF/DAVID/SA) Height 2019-09-20 00:39:00 65 [in_i] [facility] (LUF/DAVID/SA) Weight 2019-09-20 00:39:00 101.9 kg [facility] (LUF/DAVID/SA) BMI (Body Mass 2019-09-20 00:39:00 37.4 kg/m2 [facility]) [facility] (LUF/DAVID/SA) Pulse Rate 2019-08-17 04:31:00 81 /min [facility] (LUF/DAVID/SA) Respiratory Rate 2019-08-17 04:31:00 13 /min [facility] (LUF/DAVID/SA) O2% BldC Oximetry 2019-08-17 04:31:00 97 % [facility] (LUF/DAVID/SA) BP Systolic 2019-08-17 04:31:00 136 mm[Hg] [facility] (LUF/DAVID/SA) BP Diastolic 2019-08-17 04:31:00 75 mm[Hg] [facility] (LUF/DAVID/SA) Body Temperature 2019-08-17 02:23:00 97.6 [degF] [facility] (LUF/DAVID/SA) Height 2019-08-17 02:19:00 64 [in_i] [facility] (LUF/DAVID/SA) Weight 2019-08-17 02:19:00 100.6 kg [facility] (LUF/DAVID/SA) BMI (Body Mass 2019-08-17 02:19:00 38.3 kg/m2 [facility] Index) [facility] (LUF/DAVID/SA) Pulse Rate 2018-12-07 02:33:00 79 /min [facility] (LUF/DAVID/SA) Respiratory Rate 2018-12-07 02:33:00 15 /min [facility] (LUF/DAVID/SA) O2% BldC Oximetry 2018-12-07 02:33:00 96 % [facility] (LUF/DAVID/SA) BP Systolic 2018-12-07 02:33:00 120 mm[Hg] [facility] (LUF/DAVID/SA) BP Diastolic 2018-12-07 02:33:00 76 mm[Hg] [facility] (LUF/DAVID/SA) Body Temperature 2018-12-07 01:10:00 98.2 F [facility] (LUF/DAVID/SA) Height 2018-12-07 01:10:00 64 in [facility] (LUF/DAVID/SA) Weight Measured 2018-12-07 01:10:00 218.25 lbs [facility] (LUF/DAVID/SA) BMI (Body Mass 2018-12-07 01:10:00 37.7 kg/m2 [facility] Index) [facility] (LUF/DAVID/SA) Pulse Rate 2018-09-30 19:40:00 70 /min [facility] (LUF/DAVID/SA) Respiratory Rate 2018-09-30 19:40:00 21 /min [facility] (LUF/DAVID/SA) O2% BldC Oximetry 2018-09-30 19:40:00 100 % [facility] (LUF/DAVID/SA) BP Systolic 2018-09-30 19:40:00 124 mm[Hg] [facility] (LUF/DAVID/SA) BP Diastolic 2018-09-30 19:40:00 88 mm[Hg] [facility] (LUF/DAVID/SA) Body Temperature 2018-09-30 19:23:00 99.3 F [facility] (LUF/DAVID/SA) Height 2018-09-30 19:23:00 66 in [facility] (F/DAVID/SA) Weight Measured 2018-09-30 19:23:00 212.52 lbs [facility] (LUF/DAVID/SA) BMI (Body Mass 2018-09-30 19:23:00 34.5 kg/m2 [facility]) [facility] (LUF/DAVID/SA) Body Temperature 2018-09-01 13:59:00 98 F [facility] (LUF/DAVID/SA) Pulse Rate 2018-09-01 12:15:00 74 /min [facility] (LUF/DAVID/SA) Respiratory Rate 2018-09-01 12:15:00 16 /min [facility] (F/DAVID/SA) O2% BldC Oximetry 2018-09-01 12:15:00 98 % [facility] (LUF/DAVID/SA) BP Systolic 2018-09-01 12:15:00 131 mm[Hg] [facility] (LUF/DAVID/SA) BP Diastolic 2018-09-01 12:15:00 78 mm[Hg] [facility] (LUF/DAVID/SA) Height 2018-09-01 09:16:00 64 in [facility] (F/DAVID/SA) Weight Measured 2018-09-01 09:16:00 214.24 lbs [facility] (LUF/DAVID/SA) BMI (Body Mass 2018-09-01 09:16:00 37 kg/m2 [facility]) [facility] (LUF/DAVID/SA) Body Temperature 2018-05-13 10:58:00 99 F [facility] (F/DAVID/SA) Pulse Rate 2018-05-13 10:58:00 97 /min [facility] (LUF/DAVID/SA) Respiratory Rate 2018-05-13 10:58:00 18 /min [facility] (LUF/DAVID/SA) O2% BldC Oximetry 2018-05-13 10:58:00 98 % [facility] (LUF/DAVID/SA) BP Systolic 2018-05-13 10:58:00 131 mm[Hg] [facility] (LUF/DAVID/SA) BP Diastolic 2018-05-13 10:58:00 88 mm[Hg] [facility] (LUF/DAVID/SA) Height 2018-05-13 10:58:00 64 in [facility] (LUF/DAVID/SA) Weight Measured 2018-05-13 10:58:00 207.23 lbs [facility] Abhinav islas [facility] (LUF/DAVID/SA) BMI (Body Mass 2018-05-13 10:58:00 35.8 [facility] (LUF/DAVID/SA) Body Temperature 2017-12-24 08:04:00 98.7 F [facility] (LUF/DAVID/SA) Respiratory Rate 2017-12-24 08:04:00 18 /min [facility] (F/DAVID/SA) O2% BldC Oximetry 2017-12-24 08:04:00 98 % [facility] (LUF/DAVID/SA) BP Systolic 2017-12-24 08:04:00 126 mm[Hg] [facility] (LUF/DAVID/SA) BP Diastolic 2017-12-24 08:04:00 86 mm[Hg] [facility] (LUF/DAVID/SA) Weight Measured 2017-12-24 08:04:00 207.23 lbs [facility] Abhinav [facility] (LUF/DAVID/SA) Body Temperature 2017-06-20 23:28:00 97.4 F [facility] (LUF/DAVID/SA) Respiratory Rate 2017-06-20 23:28:00 20 /min [facility] (LUF/DAVID/SA) O2% BldC Oximetry 2017-06-20 23:28:00 99 % [facility] (LUF/DAVID/SA) BP Systolic 2017-06-20 23:28:00 107 mm[Hg] [facility] (LUF/DAVID/SA) BP Diastolic 2017-06-20 23:28:00 76 mm[Hg] NANCY Veliz [facility] (LUF/DAVID/SA) Height 2017-06-20 23:28:00 64 in [facility] [address] Stefanie correa [facility] (LUF/DAVID/SA) Weight Measured 2017-06-20 23:28:00 217.15 lbs [facility] S t [facility] (LUF/DAVID/SA) BMI (Body Mass 2017-06-20 23:28:[address] [facility] [address] [facility]ra Index) [facility] (LUF/DAVID/SA) Procedures Procedure Date / Time Performing Clinician Source Performed CT ABDOMEN PELVIS WO 2022-02-19 15:49:34 Trice Harris [facility] LIPASE 2022-02-19 14:26[facility] 2022-02-19 14:26:00 Trice Harris [facility] ([id number]) [facility] CBC WITH DIFF 2022-02-19 14:26:00 [facility] URINALYSIS 2022-02-19 14:26:00 Harris [facility] CONSENT/REFUSAL FOR 2022-02-19 14:11:01 Doctor Unassigned, [facility] DIAGNOSIS AND TREATMENT [facility] POCT MOLECULAR FLU 2021-11-29 22:46:00 Ameena Preston [facility] INS INFUS DEV LT BASILIC 2020-03-15 00:00:00 NANCY Marinelli VN PERQ [facility] (LUF/DAVID/SA) ULTRASONOGRAPHY LT UP EXT 2020-03-15 00:00:[address] Isra VNS GUID [facility] (LUF/DAVID/SA) ROBOTIC LAP LYSIS OF 2020-03-02 12:56:[address] Dhaliwal ADHESIONS [facility] (LUF/DAVID/SA) LAPAROSCOPY ENTEROLYSIS 2020-03-02 00:00:00 NANCY Marinelli SEPARATE PROCEDU [facility] (LUF/DAVID/SA) COLONOSCOPY FLX DX W/COLLJ 2020-02-26 00:00:[address] Dhaliwal SPEC WHEN PFR [facility] (LUF/DAVID/SA) ROBOTIC RIGHT OOPHORECTOMY 2019-03-21 17:09:00 C HI [facility] LUF (Right) [facility] (LUF/DAVID/SA) CYSTO RGP STENT PLACEMENT 2015-04-20 14:01:[address] [facility] LUF [facility] (LUF/DAVID/SA) CYSTO RGP STENT PLACEMENT 2015-04-20 14:01:[address] [facility] LUF [facility] (LUF/DAVID/SA) Hysterectomy [facility] ([facility]) Total thyroidectomy [facility] (LUF/DAVID/SA) section [facility] (LUF/DAVID/SA) ABDOMINAL ADHESIONS [facility] REMOVED [facility] (LUF/DAVID/SA) Extracorporeal shockwave [facility] lithotripsy [facility] (LUF/DAVID/SA) MULTIPLE CYSTECTOMYS DONE [facility] ([facility]F/[facility]VID/SA) MULTIPLE CYSTECTOMYS DONE [facility] (LUF/DAVDI/SA) ABDOMINAL ADHESIONS [facility] REMOVED [facility] (LUF/DAVID/SA) Appendectomy [facility] (LUF/DAVID/SA) Plan of Care Planned Activity [...] Facility Department ID 2021-07-27 Outpatient Nba, [facility] Common 08:27:02 Josué 0127 [facility] 2021-07-26 [facility] 14:20:31 Josué 1203 [facility] 2021-07-26 [facility] N[facility] 14:05:52 Josué 1027 [facility] 2021-07-26 [facility] N[facility] Common 12:01:28 Josué 1103 [facility] 2021-07-26 [facility] N[facility] 11:56:42 Josué 1019 [facility] 2021-07-26 [facility] N[facility] 11:49:38 Josué Desir [facility] 2021-07-26 [facility] 11:[facility] Josué 0922 [facility] 2021-07-26 Outpatient Nba, [facility] Common 11:47:47 Josué 0921 [facility] 2021-07-26 Outpatient Nba, [facility] Common 11:42:15 Josué Becker [facility] 2021-07-26 Outpatient Nba, [facility] Common 11:32:09 Josué Lomeli20 [facility] 2022-04-23 2022-04-23 Emergency EM PACO Quintero [id number] [facility] 09:39:00 10:55:00 Truman [facility] 2022-02-19 2022-02-19 Emergency X STEVEN [facility] [id number] Univers 09:15:00 11:05:00 TRICE [facility] 2022-02-19 2022-02-19 [facility] [id number] [id number] Univers 09:15:00 11:05:00 Trice [place] 350.1.13.10 i ty of [place] 4.2.7.2.686 [facility] [phone] [address] 2021-11-29 2021-11-29 [facility] 1.2.840.114 [id number] Univers 17:40:00 18:00:00 Care [facility] 350.1.13.10 it y of [place] 4.2.7.2.686 Jacques as SUE?BLEA [phone] Id dical [address] MEDICAL OFFICE BUILDING 2021-11-29 2021-11-29 Outpatient Irwin [facility] [id number] Univers 17:40:00 17:40:00 [facility] 2021-11-29 2021-11-29 Outpatient Irwin [facility] [id number] Univers 17:40:00 17:40:00 [facility] 2021-10-26 2021-10-26 Office GEOVANI Shiva, 1.2.840.1 [id number] Univers 09:45:00 10:47:06 Visit Praveen 29714.1.1 ity of 3.412.2.7 [place] .3.196423 MD Carter8 [facility] 2021-10-26 2021-10-26 Office Shiva, 1.2.840.1 [id number] Univers 09:45:00 10:47:06 Visit Praveen 81764.1.1 ity of 3.412.2.7 Jeffrey .3.736230 MD Carter8 [facility] 2021-10-26 2021-10-26 Travel 1.2.840.1 1.2.135.299 [id number] Univers 00:00:00 00:00:00 05043.1.1 350.1.13.41 ity of 3.412.2.7 2.[place].7.3.698 [place] .3.153035 084.8 .8 [facility] 2021-10-26 2021-10-26 Travel 1.2.840.1 1.2.713.987 [id number] [id number] Univers 00:00:00 00:00:00 60596.1.1 350.1.13.41 ity of 3.412.2.7 2.[place].3.698 [place]3.446623 084.8 .8 [facility] 2021-10-15 2021-10-15 ROSEMARIE 1 SHAMAA, [facility] [id number] 22:25:00 22:45:00 CONSCIOUS EKTA [facility], Memor ia [address] (TIERA/YUKI WEBB, V/[place]) [place] [address] 2021-10-15 2021-10-15 Inpatient [facility] 79e1 4a53-b [facility] 00:00:00 00:00:00 TERRAL [id number] [facility] [id number] Memor ia [address] MEHTA (LUF/LI AVE, V/SA) JULIÁN ROSA [address] 2021-10-15 2021-10-15 Inpatient [facility] OF [facility] 2f6e c8b8-[address] 00:00:00 00:00:00 TERRAL [id number]-8 Gutierrez [facility], [id number] Memor ia [address] 66e57b stefanie [place] (LUF/LI AVE, V/SA) JULIÁN ROSA [address] 2021-08-29 2021-08-29 Outpatient Irwin CARRANZA [facility] [id number] Univers 16:20:00 16:20:00 PATRICK melo [facility] 2021-08-07 2021-08-07 Emergency EM FRANKIE Clements AMPARO [id number] [facility] 09:36:00 12:55:00 Olga 19 [facility] 2021-08-01 2021-08-02 Emergency X DVEORA [facility] ERT [id number] Univers 22:00:00 01:17:00 [facility] 2021-08-01 2021-08-02 Emergency [facility] 1.2.418.024 [id number] Univers 22:00:00 01:17:00 Leanne GAONA 350.1.13.10 [facility] 4.2.7.2.686 [facility] [id number] [facility] 084 Branch 2021-06-28 2021-06-28 Outpatient Irwin GRIMM [facility] [id number] Univers 17:30:00 17:30:00 SHARA melo [facility] 2021-06-22 2021-06-22 Letter REHAN Chaves 1.2.840.114 [id number] Univers 00:00:00 00:00:00 (Out) Eve LEE 350.1.13.10 [facility] 4.2.7.2.686 [facility] [id number] [facility] 019 Branch 2021-06-22 2021-06-22 Park Carranza [facility] 1.2.840.114 [id number] Univers 00:00:00 00:00:00 [facility] 350.1.13.10 it y of [facility] 4.2.7.2.686 Jacques as SUE?BLEA [id number] [address] MEDICAL OFFICE BUILDING 2021-06-21 2021-06-21 Outpatient R WINSOME [facility] [id number] Univers 11:00:00 12:14:12 RANIA ity [facility] 2021-06-21 2021-06-21 Urgent BenitoPatrick casillas [facility] 1.2.840.114 [id number] Univers 11:00:00 11:20:00 Care Hill[facility] 350.1.13.10 ity of [place] 4.2.7.2.686 Jacques as SUE?BLEA [phone] [address] MEDICAL OFFICE [facility] 2021-06-21 2021-06-21 Telephone Cloverbradlyrené [facility] 1.2.840.114 [id number] Univers 00:00:00 00:00:00 RanVeebox 350.1.13.10 it y of [place] 4.2.7.2.686 Jacques as SUE?BLEA [id number] [address] MEDICAL OFFICE [facility] 2021-06-21 2021-06-21 Letter Doctor REHAN 1.2.840.114 [id number] Univers 00:00:00 00:00:00 (Out) Unassigned, ROSA 350.1.13.10 ity of [place] [facility] 4.2.7.2.686 Jacques as [id number] [address] 2021-05-30 2021-05-30 (TEL) STLMLC STLMLC [id number] Co mmon 00:00:00 00:00:00 [facility] 2021-05-29 2021-05-29 (TEL) STLMLC STLMLC [id number] Co mmon 00:00:00 00:00:00 [facility] 2021-04-26 2021-04-26 (TEL) STLMLC STLMLC [id number] Co mmon 00:00:00 00:00:00 [facility] 2021-04-23 2021-04-23 UNSPECIFIE 1 LONI DYKES [facility] [id number] [facility] [address] 00:46:00 02:08:00 D SETH Olamidelucia ABDOMINAL Memori a PAIN l (LUF/LI V/SA) 2021-04-23 2021-04-23 Inpatient [facility] OF [facility] fb11 ce73-[address] 00:00:00 00:00:00 TERRAL i75-3c86-4 [facility], [id number]-ni6vd9 Memor ia [address] a89c0d l [place] (LUF/LI AVE, V/[place]) [place] [address] 2021-04-23 2021-04-23 Inpatient [facility] OF [facility] 6aab 1878-[address] 00:00:00 00:00:00 TERRAL t9u-1760-7 [facility], [id number] Memor ia [address] 822c23 l [place] (LUF/LI AVE, V/SA) [place] [address] 2021-03-24 2021-03-24 ANXIETY 1 COTTON, [facility] [id number] [facility] [address] 10:25:00 12:27:00 DISORDER REHAN [facility] UNSPECIFIE [place], Memor ia D [address] [place] (LUF/LI AVE, V/SA) [place] [address] 2021-03-24 2021-03-24 Inpatient [facility] OF [facility] f871 cc2a-c [facility] 00:00:00 00:00:00 TERRAL 9aa-405b-9 [facility], [id number] Memor ia [address] cf90e3 l [place] (LUF/LI AVE, V/SA) [place] [address] 2021-03-24 2021-03-24 Inpatient [facility] OF [facility] e945 ff19-c [facility] 00:00:00 00:00:00 TERRAL l03-9f71-x [facility], 88b-033ffa Memor ia [address] 683da2 l [place] (LUF/LI AVE, V/SA) [place] [address] 2021-03-23 2021-03-23 Orders Adriana, 1.2.840.1 [id number] Univers 00:00:00 00:00:00 Only Viktoriya Charlton 48973.1.1 ity of 3.412.2.7 [place] .[id number] MD Carter8 [facility] 2021-03-10 2021-03-10 UTI SITE E SANACIUK, [facility] [id number] [facility] [address] 10:29:00 13:50:00 [facility] [address] [place] (LUF/LI AVE, V/SA) [place] [address] 2021-03-10 2021-03-10 Inpatient [facility] 16e7 6598-b [facility] 00:00:00 00:00:00 TERRAL m5g-5289-1 [facility], q7e-758v4z Memor ia [address] 8ebb0b l [place] (LUF/LI AVE, V/SA) [place] [address] 2021-03-10 2021-03-10 Inpatient [facility] 518c 3339-c [facility] 00:00:00 00:00:00 TERRAL q39-0bt1-2 [facility], n9e-3ba02q Memor ia [address] f904e5 l [place] (LUF/LI AVE, V/SA) [place] [address] 2021-02-23 2021-02-23 RIGHT E [facility] [id number] [facility] [address] 08:15:00 12:44:00 [facility], Memoria PAIN [address] [place] (LUF/LI AVE, V/SA) [place] [address] 2021-02-23 2021-02-23 Inpatient [facility] 89b5 d1de-[address] 00:00:00 00:00:00 TERRAL 09f-406d-9 [facility], 74d-24f9de Memor ia [address] e8fcf1 l [place] (LUF/LI AVE, V/[place]) [place] [address] 2021-02-23 2021-02-23 Inpatient [facility] OF [facility] OF [facility]AST 8500 e20f-[address] 00:00:00 00:00:00 TERRAL 1ef-425c-a [facility], [id number]-81k451 Memor ia [address] 1655de l [place] (LUF/LI AVE, [place]) [place] [address] 2021-01-10 2021-01-10 CALCULUS Jake DYKES, [facility] [place] [id number] [facility] [address] 00:21:00 03:06:00 OF KIDNEY SETH [facility] s [place], Memoria [address] [place] (LUF/LI AVE, V/[place]) [place] [address] 2021-01-10 2021-01-10 Inpatient [facility] 2205-c [facility] 00:00:00 00:00:00 TERRAL l37-2f67-r [facility], 72a-11f6e9 Memor ia [address] 3fb6a8 l [place] (LUF/LI AVE, V/[place]) [place] [address] 2021-01-10 2021-01-10 Inpatient MMC OF [facility] fe83-e [facility] 00:00:00 00:00:00 TERRAL ff6-4d87-9 [facility], 32e-[id number] Memor ia [address] e09ed4 l [place] (LUF/LI AVE, V/[place]) [place] [address] 2020-12-27 2020-12-27 Emergency [facility] Zarina [id number] [place] 00:00:00 00:00:[address] 2020-12-22 2020-12-22 Outpatient 3 LONI MURILLO TIC [id number] 09:00:00 09:00:00 SKYE Dhaliwal Memoria l (LUF/LI V/SA) 2020-12-13 2020-12-13 Emergency EM SHEY Perez [id number] [facility] 01:53:00 06:36:00 [facility] 2020-12-12 2020-12-12 RIGHT Jake COTTON, [facility] [id number] 12:33:00 14:00:00 [facility] [place], Memoria PAIN [address] [place] (LUF/LI AVE, V/[place]) [place] [address] 2020-12-12 2020-12-12 Inpatient [facility] e2c0 cb47-b [facility] 00:[facility]:00 00:00:00 TERRAL 82f-45d0-a [facility], 13e-0f9f6d Memor ia [address] d8d842 l [place] (LUF/LI AVE, V/SA) [place] [address] 2020-12-12 2020-12-12 Inpatient [facility] 43ed f7fe-[address] 00:00:00 00:00:00 TERRAL m72-87xw-m [facility], 316-1i590p Memor ia [address] 70ade3 l [place] (LUF/LI AVE, V/SA) [place] [address] 2020-12-08 2020-12-08 UNSPECIFIE Jake SOTOMAYOR, [facility] [id number] [facility] [address] 09:44:00 12:26:00 D WYATT [facility] ABDOMINAL [place], Memori a PAIN [address] [place] (LUF/LI AVE, V/SA) [place] [address] 2020-12-08 2020-12-08 Inpatient [facility] OF [facility] 6a3f a794-a [facility] 00:[facility]:00 00:00:00 TERRAL 9u6-3w96-2 [facility], [id number] Memor ia [address] 9973a7 l [place] (LUF/LI AVE, V/SA) [place] [address] 2020-11-25 2020-11-25 UNSPECIFIE M[facility] [id number] 00:13:00 00:30:00 D [facility] ABDOMINAL [place], Memori a PAIN [address] [place] (LUF/LI AVE, V/SA) [place] [address] 2020-11-25 2020-11-25 Inpatient [facility] OF [facility] 3041 db6a-[address] 00:00:00 00:00:00 TERRAL fb6-4754-b [facility], [id number]-gad789 Memor ia [address] 841f4f l [place] (LUF/LI AVE, V/SA) [place] [address] 2020-11-25 2020-11-25 Inpatient [facility] OF [facility] a3eb ed11-a [facility] 00:00:00 00:00:00 TERRAL h20-6ip0-6 [facility], [id number] Memor ia [address] ea5dda l [place] (LUF/LI AVE, V/SA) [place] [address] 2020-11-21 2020-11-21 ENDOMETRIO 1 [facility] [id number] [facility] [address] 07:14:00 09:53:00 SIS [facility] UNSPECIFIE [place], Memor ia D [address] [place] (LUF/LI AVE, V/SA) [place] [address] 2020-11-21 2020-11-21 Inpatient [facility] 90f0 278b-[address] [facility] [address] 00:00:00 00:00:00 TERRAL 3e4-00uq-5 [facility], 4bb-5eeded Memor ia [address] 5m9777 l [place] (LUF/LI AVE, V/SA) [place] [address] 2020-11-21 2020-11-21 Inpatient [facility] OF [facility] OF [facility] 3b21 9c7a-[address] [facility] [address] 00:00:00 00:00:00 TERRAL 30a-405e-8 [facility], [id number] Memor ia [address] 3040c4 l [place] (LUF/LI AVE, V/SA) [place] [address] 2020-11-14 2020-11-14 GASTRITIS 1 COTTON, STStefanie EMD [id number] 09:27:00 14:37:00 UNS REHAN Dhaliwal WITHOUT Memoria BLEEDING l (LUF/LI V/SA) 2020-11-14 2020-11-14 Inpatient [facility] d4fe d3e2-[address] 00:00:00 00:00:00 TERRAL 3cf-4b7a-a [facility], 2ad-d46ca7 Memor ia [address] 2d56cc l [place] (LUF/LI AVE, V/SA) [place] [address] 2020-11-14 2020-11-14 Inpatient [facility] 324e 65b9-b [facility] 00:00:00 00:00:00 TERRAL 464-403c-8 [facility], [id number] Memor ia [address] a7979y l [place] (LUF/LI AVE, V/SA) [facility] [place] [address] 2020-11-08 2020-11-08 OTHER E YURY, [facility] [id number] [facility] [address] 08:04:00 13:13:00 CHRONIC REHAN [facility] [address] [place] (LUF/LI AVE, V/SA) [place], [place] [address] 2020-11-08 2020-11-08 Inpatient [facility] 8079 b52c-c [facility] 00:00:00 00:00:00 TERRAL ed8-4ae3-8 [facility], [id number] Memor ia [address] cf6d84 l [place] (LUF/LI AVE, V/[place]) [place] [address] 2020-11-08 2020-11-08 Inpatient [facility] 0f07 dc59-[address] [facility] [address] 00:00:00 00:00:00 TERRAL 292-4184-b [facility], 8ff-44cd4a Memor ia [address] d1bfd4 l [place] (LUF/LI AVE, V/SA) [place], [place] [address] 2020-11-08 2020-11-08 Inpatient [facility] 40b4 e14c-[address] [facility] [address] 00:00:00 00:00:00 TERRAL 784-40e4-9 [facility], [id number] Memor ia [address] 29ea9a l [place] (LUF/LI AVE, V/SA) [place], [place] [address] 2020-11-01 2020-11-01 NAUSEA E WANDA, [facility] [address] 00:27:00 03:55:00 WITH AMBROSIO [facility] UNS[facility]IE [address] D [place] (LUF/LI AVE, V/SA) [place] [address] 2020-11-01 2020-11-01 Inpatient [facility] 1ec3 64c1-c [facility] 00:00:00 00:00:00 TERRAL i75-4gxb-q [facility], 85a-z4836t Memor ia [address] f1801m l [place] (LUF/LI AVE, V/SA) [place] [address] 2020-11-01 2020-11-01 Inpatient [facility] 79c0 b023-[address] 00:00:00 00:00:00 TERRAL 3o9-545o-p [facility], [id number] Memor ia [address] 783eec l [place] (LUF/LI AVE, V/SA) [place] [address] 2020-10-04 2020-10-05 OTHER E RODRICK, [facility] [address] 23:32:00 01:00:00 CHRONIC JUAN [facility] [address] [place] (LUF/LI AVE, V/SA) [place] [address] 2020-10-04 2020-10-04 Inpatient [facility] b016 f3f5-a [facility] 00:00:00 00:00:00 TERRAL 6t7-5u1b-c [facility], 67e-[id number] Memor ia [address] bb93d3 l [place] (LUF/LI AVE, V/SA) [place] [address] 2020-10-04 2020-10-04 Inpatient [facility] ea96 0c7a-[address] 00:00:00 00:00:00 TERRAL 25c-4997-b [facility], p01-m158h2 Memor ia [address] 1f27e6 l [place] (LUF/LI AVE, V/SA) [place] [address] 2020-09-18 2020-09-18 OTHER E [facility] [id number] [address] 01:00:00 04:44:00 [facility] [place], Memoria [address] [place] (LUF/LI AVE, V/SA) [place] [address] 2020-09-18 2020-09-18 Inpatient [facility] b80a 7ee5-[address] 00:00:00 00:00:00 TERRAL 7h1-924y-8 [facility], [id number] Memor ia [address] [id number] [address] ([address], V/SA) [place] [address] 2020-09-18 2020-09-18 Inpatient [facility] [id number] [id number] [facility] 00:00:00 TERRAL [id number] Formerly [facility], [id number] Memor ia [id number] [address] ([address], V/SA) [place] [id number] 2020-09-12 2020-09-12 ENDOMETRIO E RODRICK, [facility] [id number] [facility] 00:46:00 02:38:00 SIS JUAN T[facility]AL [facility] [place], Memor ia D [address] ([address], V/SA) [place] [address] 2020-09-12 2020-09-12 Inpatient [facility] [id number] [id number] [facility]:00 00:00:00 TERRAL [id number] [facility]ly [facility], [id number] Memor ia [id number] ([address], V/[place]) [place] [id number] 2020-09-12 2020-09-12 Inpatient [facility] [id number] [id number] [facility] 00:[facility]:00 00:00:00 TERRAL [id number] [facility], [id number] Memor ia [address] [id number] [address] ([address], V/SA) [place] [address] 2020-08-22 2020-08-22 OTHER E RODRICK, [facility] [id number] 01:13:00 03:24:00 CHRONIC [facility], Memoria [address] ([address], V/SA) [place] [address] 2020-08-22 2020-08-22 Inpatient [facility] [id number] 00:00:00 00:00:00 TERRAL [id number] [facility], [id number] Memor ia [address] [id number] [address] ([address]F/LI [address], V/[place]) [place] [id number] 2020-08-22 2020-08-22 Inpatient [facility] [id number] [id number] [facility] 00:[facility]:00 00:00:00 TERRAL [id number] [facility]ly [facility], [id number] Memor ia [address] [id number] [address] ([address], V/SA) [place] [address] 2020-08-06 2020-08-06 Inpatient E RODRICK, [facility] [id number] 01:21:00 03:35:00 [facility] [address] ([address], V/SA) [place] [address] 2020-08-06 2020-08-06 Inpatient [facility] [id number] [id number] [facility] 00:[facility]:00 00:00:00 TERRAL [id number] [facility], [id number] [facility] [address] [id number] [address] ([address], V/SA) [place] [address] 2020-07-19 2020-07-19 RIGHT E YURY, [facility] [id number] 07:50:00 11:20:00 LOWER [facility] [address] ([address], V/SA) [place] [address] 2020-07-19 2020-07-19 Inpatient [facility] 625d 6050-[id number] [facility] 00:[facility]:00 00:00:00 TERRAL [id number] [facility]ly [facility], [id number] Memor ia [address] [id number] [address] ([address], V/[place]) [place] [address] 2020-07-19 2020-07-19 Inpatient [facility] [id number] [id number] [facility] [address] 00:00:00 00:00:00 TERRAL [id number] [facility]ly [facility], [id number] Memor ia [address] [id number] l [address] ([address], V/SA) [place] [address] 2020-07-05 2020-07-05 OTHER E RODRICK, [facility] [id number] [facility] [address] 02:42:00 05:00:00 CHRONIC JUAN [facility], Memoria [address] ([address], V/SA) [place] [address] 2020-07-05 2020-07-05 Inpatient [facility] [id number] [id number] [facility] 00:00:00 00:00:00 TERRAL [id number] Formerly [facility], [id number] Memor ia [address] [id number] [address] ([address], V/SA) [place] [address] 2020-07-05 2020-07-05 Inpatient [facility] [id number] [facility] 00:00:00 00:00:00 TERRAL [id number] Formerly [facility], [id number] Memor ia [address] [id number] l [address] (LUF/LI A[address], V/SA) [place] [address] 2020-06-10 2020-06-10 (TEL) [facility] [id number] Co mmon 00:00:00 00:00:00 Spirit - [facility] 2020-06-07 2020-06-07 Inpatient 1 YURY, [facility] [id number] [facility] 12:56:00 19:04:00 REHAN [facility], Memoria [address] (LUF/LI AVE, V/SA) [place] [address] 2020-06-07 2020-06-07 Inpatient [facility] [id number] [facility] 00:[facility] 00:00:00 TERRAL [id number] Formerly [facility], [id number] [facility] [address] [id number] l [address] (LUF/LI AVE, V/SA) [place] [address] 2020-05-31 2020-05-31 Inpatient E COTTON, [facility] [place] [id number] 09:31:00 14:13:00 [facility] [address] (LUF/LI A[address], V/SA) [place] [address] 2020-05-10 2020-05-10 Outpatient STLMLC STLMLC [id number] Common 00:00:00 00:00:00 [facility] 2020-05-09 2020-05-09 Outpatient STLMLC STLMLC [id number] Common 00:00:00 00:00:00 [facility] 2020-05-05 2020-05-05 Outpatient STLMLC STLMLC [id number] Common 00:00:00 00:00:00 [facility] 2020-05-02 2020-05-02 Outpatient STLMLC STLMLC [id number] Common 00:00:00 00:00:00 [facility] 2020-05-02 2020-05-02 Outpatient STLMLC STLMLC [id number] Common 00:00:00 00:00:00 [facility] 2020-04-29 2020-04-29 Outpatient STLMLC STLMLC [id number] Common 00:00:00 00:00:00 [facility] 2020-04-25 2020-04-25 LEFT LOWER E [facility] [id number] 16:46:00 21:30:00 [facility] [address] ([address]F/LI A[address], V/SA) [place] [address] 2020-04-22 2020-04-22 Outpatient STLMLC STLMLC [id number] Common 00:00:00 00:00:00 [facility] 2020-04-20 2020-04-20 PROC&TX [facility] [id number] 15:39:00 16:03:00 NOT TERRAL Isra CARRIED [place], [facility] OUT PT [address] stefanie MALDONADO [place] (TIERA/YUKI WEBB, V/SA) [place] [address] 2020-04-20 2020-04-20 Outpatient STLMLC STLMLC [id number] Common 00:00:00 00:00:00 [facility] 2020-04-20 2020-04-20 Outpatient STLMLC STLMLC [id number] Common 00:00:00 00:00:00 [facility] 2020-04-15 2020-04-15 Outpatient STLMLC STLMLC [id number] Common 00:00:00 00:00:00 [facility] 2020-04-13 2020-04-13 Outpatient STLMLC STLMLC [id number] Common 00:00:00 00:00:00 [facility] 2020-04-12 2020-04-12 Outpatient STLMLC STLMLC [id number] Common 00:00:00 00:00:00 [facility] 2020-04-11 2020-04-11 Outpatient STLMLC STLMLC [id number] Common 00:00:00 00:00:00 [facility] 2020-04-08 2020-04-08 Outpatient STLMLC STLMLC [id number] Common 00:00:00 00:00:00 [facility] 2020-04-06 2020-04-06 Outpatient STLMLC STLMLC [id number] Common 00:00:00 00:00:00 [facility] 2020-04-04 2020-04-04 Outpatient STLMLC STLMLC [id number] Common 00:00:00 00:00:00 [facility] 2020-03-31 2020-03-31 Outpatient STLMLC STLMLC [id number] Common 00:00:00 00:00:00 [facility] 2020-03-29 2020-03-29 Outpatient GEOVANI BLAS MDA MDA [id number] 00:00:00 00:00:00 PRAVEEN payton 2020-03-29 2020-03-29 Outpatient STLMLC STLMLC [id number] Common 00:00:00 00:00:00 [facility] 2020-03-28 2020-03-28 Outpatient STLMLC STLMLC [id number] Common 00:00:00 00:00:00 [facility] 2020-03-22 2020-03-22 Outpatient STLMLC STLMLC [id number] Common 00:00:00 00:00:00 [facility] 2020-03-21 2020-03-21 Outpatient STLMLC STLMLC [id number] Common 00:00:00 00:00:00 [facility] 2020-03-20 2020-03-20 FEDE COTTON, [facility] [place] [id number] [facility] [address] 17:08:00 22:56:00 ABDOMINAL REHAN TERRAL Lu s PAIN [facility] UNSPECIFIE [address] Chin [place]HT[place] (LUF/LI AVE, V/SA) JULIÁN ROSA [address] 2020-03-14 2020-03-17 CELLULITIS E TRUX, [facility] [place] [id number] 14:54:00 11:30:00 OF VOODOO [facility] s ABDOMINAL [facility] a WALL [address] stefanie [address] (LUF/LI A[address], V/SA) JULIÁN ROSA [address] 2020-03-03 2020-03-03 [facility] [id number] Common 13:33:00 13:33:00 [facility]'s [facility] Health I Health [facility] 2020-03-02 2020-03-02 FE RYAN WOLFE, [facility] [place] [id number] 05:58:00 15:35:00 PERITON LIZBETH [facility] POSTINFECT [address] stefanie [place] (LUF/LI AVE, V/SA) JULIÁN ROSA [address] 2020-03-02 2020-03-02 Outpatient STLMLC STLC [id number] Common 00:00:00 00:00:00 [facility] 2020-03-01 2020-03-01 Outpatient [facility] [id number] Common 09:15:00 09:15:00 Clinics [facility] 2020-02-29 2020-02-29 Outpatient [facility] [id number] Common 09:30:00 09:30:00 [facility] 2020-02-25 2020-02-27 LOWER E YURY, [facility] [place] [id number] [facility] 13:21:00 12:09:00 ABDOMINAL REHAN [facility] s [facility] [place] [address] D [address] (LUF/LI AVE, V/[place]) [place] [address] 2020-02-25 2020-02-25 UNSPECIFIE E RODRICK, [facility] [id number] [facility] 00:40:00 05:00:00 D JUAN [facility] ABDOMINAL [place], Memori a PAIN [address] (LUF/LI AVE, V/SA) [place] [address] 2020-01-25 2020-01-25 LOW BACK 1 YURY, [facility] [id number] [facility] 11:28:00 13:15:00 PAIN REHAN [facility] [address] ([address]F/LI A[address], V/SA) [place] [address] 2020-01-18 2020-01-18 Outpatient [facility] [id number] Common 11:45:00 11:45:00 [facility] 2019-12-09 2019-12-09 OTHER E [facility] [id number] [facility] 03:03:00 05:08:00 CHRONIC [facility] [place] [address] ([address]F/LI A[address], V/SA) [place] [address] 2019-11-24 2019-11-24 UNSPECIFIE E [facility] [id number] [facility] 00:31:00 05:30:00 D [facility] ABDOMINAL [place] [address] ([address]F/LI A[address], V/SA) [place] [address] 2019-10-07 2019-10-07 RIGHT 1 YURY, [facility] [place] [facility] [id number] 20:35:00 23:10:00 LOWER REHAN TERRAL [facility] [place], Memoria PAIN [address] ([address]F/LI A[address], V/SA) [place] [address] 2019-09-20 2019-09-20 RIGHT 1 YURY, [facility] [id number] 00:33:00 04:23:00 LOWER REHAN TERRAL [facility] [place] [address] (LUF/LI A[address], V/[place]) [place] [address] 2019-08-17 2019-08-17 UNSPECIFIE 1 RIVERA, [facility] [place] [id number] 02:18:00 04:45:00 D VOODOO TERRAL Luke s ABDOMINAL [place] [address] ([address]/LI A[address], V/SA) [place] [address] 2019-04-22 2019-04-22 [facility] [id number] Common 12:03:00 12:03:00 [facility] 2019-04-14 2019-04-14 [facility] [id number] Common 16:12:00 16:12:00 [facility] 2019-04-06 2019-04-06 [facility] [id number] Common 12:16:00 12:16:00 [facility] 2019-03-31 2019-03-31 [facility] [id number] Common 14:00:00 14:00:00 [facility] 2018-12-07 2018-12-07 UNSPECIFIE 1 QUINTIN BRITO [facility] [id number] [facility] 01:06:00 04:45:00 D OVARIAN TERRAL Luke s CYST RIGHT [place] SIDE [address] ([address]F/LI A[address], V/SA) [place] [address] 2018-10-29 2018-10-29 N-PRSS CHR JAY, [facility] [id number] [facility] 06:59:00 23:59:00 ULCR SKIN MIKY [facility] [address] ([address]F/LI A[address], V/SA) [place] [address] 2018-10-22 2018-10-22 N-PRSS CHR BLAKESTAD, [facility] [id number] [facility] 07:20:00 23:59:00 ULCR SKIN MIKY [facility] [address] ([address]F/LI A[address], V/SA) [place] [address] 2018-10-15 2018-10-15 N-PRSS CHR O [place], [facility] [id number] [facility] 07:08:00 23:59:00 ULCR SKIN MIKY [facility] [address] ([address]F/LI AVE, V/SA) [place] [address] 2018-09-30 2018-10-01 INFCT FOL 1 SHABNAM, [facility] [id number] [facility] 18:46:00 01:05:00 PRC SUPF DIMAS [facility] SIT INIT [address] ([address], V/SA) [place] [address] 2018-09-01 2018-09-01 OTH 1 WANDA, [facility] [place] [id number] [facility] 09:12:00 14:00:00 [facility]FL [facility] D[facility]O [facility] a TUBE&BRD [address] LIG [address] (LUF/LI AVE, V/[place]) [place] [address] 2018-05-13 2018-05-13 Inpatient 1 WANDA, [facility] [place] [id number] [facility] [address] 10:52:00 13:46:00 CLEMENT [facility] [address] ([address]F/LI A[address], V/SA) [place] [address] 2017-12-24 2017-12-24 UNSPECIFIE 1 QUINTIN BRITO [facility] [id number] [facility] 07:51:00 13:52:00 D OVARIAN [facility] s CYST RIGHT [place] SIDE [address] ([address]F/LI A[address], V/SA) [place] [address] 2017-06-20 2017-06-21 HYDRONPHRO 1 RODRICK, [facility] [id number] [facility] 23:01:00 03:55:00 S JUAN [facility] RENL&URETR [place], Memor ia L CALCUL [address] (LUF/LI AVE, V/SA) [place] [address] 2017-05-13 2017-05-13 OTHER 3 MERLE, [facility] [id number] [facility] [address] 15:40:00 23:59:00 FATIGUE ASA [facility], Memoria [address] ([address]F/LI [address], V/SA) [place] [address] Results Test Description Test Time Test Comments Results Result [facility] e Comments - XR SHOULDER 2 + 2022-04-23 V LT 16:42:00 [facility] : 1985 Sex: F Patient Name: LAUREN BETH Unit No: [id number] EXAMS: CPT CODE: [id number] XR SHOULDER 2 + [place] [address] Left shoulder 3 views COMMENT: There is no evidence for fracture or subluxation. No focal bony lesions are seen. at 1642 Reported and signed by: Angelo Hardin MD CC: Truman Quintero MD Technologist: Jeannette Garcia RT.(R) Transcribed D/ (1641) [facility] NAME: LAUREN BETH [address] [facility] PHYS: Truman Alfaro MD : 1985 AGE: 36 SEX: F [place], [place] [address] LOC: JOHNNIE PHONE #: [phone] EXAM DATE: 04/23/2022 STATUS: DEP ER FAX #: [phone] RAD #: D/C DT PAGE 1 Signed Report Patient Name: LAUREN BETH Unit No: [id number] EXAMS: CPT CODE: [id number] XR SHOULDER 2 + [place] LT [address] (Continued) Orig Print D/T: S: 04/23/2022 (1644) [facility] NAME: LAUREN BETH [address] [facility] PHYS: Truman Alfaro MD : 1985 AGE: 36 SEX: F [place] [address] LOC: JOHNNIE PHONE #: [phone] EXAM DATE: 04/23/2022 STATUS: DEP ER FAX #: [phone] RAD #: D/C DT PAGE 2 Signed Report COMP. METABOLIC PANEL (99870) 2022-02-19 14:56:05 Test Item Value Reference Range Interpretation Comme nts NA (test code = 8646157794) 137 mmol/L 135-145 K (test code = 1897647037) 4.2 mmol/L 3.5-5 CL (test code = 7432551348) 108 mmol/L 98-108 CO2 TOTAL (test code = 9694300667) 19 mmol/L 23-31 L AGAP (test code = 1127316584) 2-16 BUN (test code = 3494369361) 14 mg/dL 7-23 GLUCOSE (test code = 3913230917) 133 mg/dL 70-110 H CREATININE (test code = 0.56 mg/dL 0.5-1.04 7977827533) TOTAL BILI (test code = 0.4 mg/dL 0.1-1.6 5766962920) CALCIUM (test code = 5753020270) 8.9 mg/dL 8.6-10.6 T PROTEIN (test code = 8833124735) 6.5 g/dL 6.3-8.2 ALBUMIN (test code = 7010069077) 4.0 g/dL 3.5-5 ALK PHOS (test code = 1891191560) 84 U/L 34-122 ALTv (test code = 1742-6) 23 U/L 5-35 AST(SGOT) (test code = 1440069429) 24 U/L 13-40 eGFR (test code = 3889099725) mL/min/1.73m2 RENZO (test code = RENZO) Association [...] tests). Lab Interpretation (test code = Abnormal 15413-8) [facility] 14[facility]55:44 Test Item Value Reference Range Interpretation Comments LIPASE (test code = 5339723267) 81 U/L 0-220 Lab Interpretation (test code = Normal 81472-2) [facility] WITH [id number] 14:36:26 Test Item Value Reference Range Interpretation [...] RDW-SD (test code = 43.9 fL 39-49.9 13208-7) RDW-CV (test code = 13.7 % 12-15.5 788-0) PLT (test code = See_Comment [Automated 777-3) message] The sy stem which generated this result transmitted reference range : 166 - 358 10*3/ ?L. The reference r bruce was not used to interpret this result as normal/abnormal . MPV (test code = 8.5 fL 9.5-12.9 L 34398-2) NRBC/100 WBC (test See_Comment [Automat ed code = 7705936770) message] The system which generated this result transmitted reference range : 0.0 - 10.0 /100 WBCs. The refer ence range was not u sed to interpret th is result as normal/abnormal . NRBC x10^3 (test code See_Comment [Auto mated = 8118609670) message] The s ystem which generated this result transmitted reference range : 10*3/?L. The reference range was not used to interpret this result as normal/abnormal . GRAN MAT (NEUT) % 58.7 % (test code = 770-8) IMM GRAN % (test code 1.10 % = 0763565615) LYMPH % (test code = 31.6 % 736-9) MONO % (test code = 6.8 % 5905-5) EOS % (test code = 1.4 % 713-8) BASO % (test code = 0.4 % 706-2) GRAN MAT x10^3(ANC) 3.30 10*3/uL 1.88-7.09 (test code = 2115991076) IMM GRAN x10^3 (test 0.06 10*3/uL 0-0.06 code = 2529824633) LYMPH x10^3 (test code 1.77 10*3/uL 1.32-3.29 = 731-0) MONO x10^3 (test code 0.38 10*3/uL 0.33-0.92 = 742-7) EOS x10^3 (test code = 0.08 10*3/uL 0.03-0.39 711-2) BASO x10^3 (test code 0.01-0.07 = 704-7) Lab Interpretation Abnormal (test code = 70117-0) [facility] [id number] 22:58:14 Test Item Value Reference Range Interpretation Comments POCT Molecular FluA (test code = Negative Negative 32239-4) POCT Molecular FluB (test code = Negative Negative 35475-1) Lab Interpretation (test code = Normal 60678-8) [facility] PAN[facility] (LIVER)2021-10-16 13:57:00 Test Item [...] (test code = 0.2 mg/dl 0.0-1.1 IBIL) [id number] 13:57:00 Test Item Value Reference Range Interpretation Comments Lipase (test code = LIPA) 114 U/L 73-393 STLAMYLASE, [id number] 13:57:00 Test Item Value Reference Range Interpretation Comments Amylase (test code = AMYL) 51 U/L 25-115 [facility] CHEM [id number] 22:45:00 Test Item Value Reference Range Interpretation [...] code = CO2) 22.1 mmol/l 24.0-29.0 L [facility] CBC WITH AUTO [id number] 22:43:00 Test Item Value Reference Range Interpretation [...] = IG%) 0.2 % 0.0-0.4 STLMLHEPATIC FUNCTION [id number] 13:03:00 Test Item Value Reference Range Interpretation [...] 96 Unit/L 45-117 N code = ALKP) [id number] 13:03:00 Test Item Value Reference Range Interpretation Comments LIPASE (test code = LIP) 83 Unit/L 114-286 L BASIC METABOLIC [id number] 13:03:00 Test Item Value Reference Range Interpretation [...] 8.5-10.1 N UA RFLX MICR CULT IF [id number] 12:44:00 Test Item Value Reference Range Interpretation [...] OF URINE: CLEAN CATCH- CT ABD PELVIS [id number] 12:27:00 [facility] 1985 Sex: F Name: LAUREN BETH [facility] : 1985 Age/S: 36 / F [address] [address] Unit #: [id number]: Julián [place] [address] Phys: Marco Hilton NP Acct: [id number] Dis Date: Status: REG ER PHONE #:[phone] Exam Date: 08/07/2021 1223 FAX #: Reason: LLQ ABD PAIN EXAMS: CPT: [id number] CT ABD PELVIS W/CONT 33182 EXAM: CT ABDOMEN AND PELVIS WITH CONTRAST. [...] Campus : 1985 Age/S: 36 / F [address] [address] Unit #: [id number] Loc: Julián Holcomb [address] Phys: Marco Hilton NP Acct: [id number] Dis Date: Status: REG ER PHONE #: [phone] Exam Date: 08/07/2021 1223 FAX #: Reason: LLQ ABD PAIN EXAMS: CPT: [id number] CT ABD PELVIS W/CONT 19784 <Continued> at 1227 Reported and signed by: Alma Cartwright M.D. CC: Olga Clements DO; Marco Hilton NP Technologist:Elmer Laguna RT(R) CTDI: DLP: Trnscb Date/Time: 08/07/2021 (1227) VereniceMD16 Orig Print D/T: S: 08/07/2021(8482) PAGE 2 Signed ReportCBC W/AUTO [id number] 12:23:00 Test Item Value Reference Range Interpretation [...] DIFF/SCN CRITERIA = MDIFF) CORONAVIRUS 2019 (IN [place])(3HR)2021-03-24 17:04:00 Test Item Value Reference Range Interpretation Comments FT (test code Negative Negative N The BioGX SARS -CoV-2 = COVID) (qualifier value) Reagents f or BD MAX System, the Bio Shoot Extreme Covid-19, and t Cepheid Covid-1 9 is [...] contact the Coronavirus [facility] at [phone]. [id number] 12:37:00 Test Item Value Reference Range Interpretation [...] 0.5-1.3 code = CREA) EGFR if >60 Mexican (test code mL/min/1.73m\\ = EGFRAA) S\\2 EGFR if Non- >60 Estimate d Glomerular Mexican (test code mL/min/1.73m\\ Filtrat ion Rate (eGFR) [...] and management of c hronic kidney failure. STLMLSTAT LAB [id number] 12:11:00 Test Item Value Reference Range Interpretation [...] after the clini felipa event. STLMLPT AND [id number] 12:09:00 Test Item Value Reference Range Interpretation Comments Protime (test code 9.5 seconds 9.5-12.1 = PT) INR (test code = 0.9 0.9-1.1 INR results are intended INR) ONLY to monitor Oral Anticoagulant t herapy in stablized patie nts. The INR Therapeutic Range is 2.0 - 3.0 Patie nts with a mechanical he art, the INR Range is 2. 5 - 3.5 [id number] 12:09:00 Test Item Value Reference Range Interpretation Comments aPTT (test code = PTT) 22.3 seconds 23.9-30.7 L STLMLSTAT LAB CBC WITH AUTO [id number] 11:57:00 Test Item Value Reference Range Interpretation [...] 0.3 % 0.0-0.4 STLMLXR CHEST AP/PA 1 [id number] 11:33:32 [facility] ([facility]/SA)Name: LAUREN BETH : 1985 Sex: FProcedure: XR CHEST AP/PA 1 VIEWOrder Date: 03/24/2021 10:57 AMOrdering Provider: REHAN COTTONClinical Indication: [id number]: DyspneaComparison: September 30, 2018Findings:Cardiac size is normal.Pulmonary vasculature is normal.Mediastinal contour is normal.Aortic contour is normal.No acute infiltrates or effusions.There is no mass or pneumothorax.There is no evidence of active tuberculosis.There isno acute skeletal abnormality.Impression: Negative AP view of the chest.This final report was electronically signed by Dr Farzad Dewitt MD :28 AMDictated By: FARZAD DEWITT.Date: :28STLMLCULTURE, [id number] 08:00:00Specimen: Urine SpecimensCollected: 03/10/2021 11:50 Status: Final [...] code = NEGATIVE NEGATIVE N UKET) Specific [place] 1.015 1.005-1.030 A (test code = USPGR) [...] SEEN A Epithelial (test code = NSE) STLMLSTAT LAB CBC WITH AUTO [id number] 12:10:00 Test Item Value Reference Range Interpretation [...] code = IG%) 0.8 % 0.0-0.4 [facility] [id number] 12:08:00 Test Item Value Reference Range Interpretation [...] = CREA) 0.5 mg/dl 0.6-1.3 L STLMLCULTURE, [id number] 08:26:00Specimen: Urine SpecimensCollected: 02/23/2021 08:35 Status: Final Last Updated: 02/24/2021 08:26 CULTURE (Final) (Final) Many Mixed Body Gabriela Isolated No Pathogens IsolatedSTLMLCT ABDOMEN/PELVIS W/[id number] 11:40:43 [facility] ([facility]/)Name: LAUREN BETH : 1985 Sex: FProcedure: CT ABDOMEN/PELVIS W/CONTRASTOrder date: 02/23/2021 10:08 AMOrdering Provider: REHAN COTTONClinical Indication: [id number]: Right lower quadrant painComparison: November 14, 2020Technique: [...] MD 111:35 AMDictated By: WILEY VELÁZQUEZDate: 02/23/2021 11:[id number] 10:44:00 Test Item Value Reference Range Interpretation Comments Lipase (test code = LIPA) 86 U/L 73-393 STLMLURINALYSIS WITH [id number] 08:58:00 Test Item Value Reference Range Interpretation Comments Color (test code = Light-Yellow UCOLR) Clarity (test code = Clear UCLAR) Glucose (test code = NEGATIVE NEGATIVE N UGLUC) Bilirubin (test code NEGATIVE NEGATIVE N = UBILI) Ketones (test code = NEGATIVE NEGATIVE N UKET) Specific [place] 1.020 1.005-1.030 A (test code = USPGR) Blood (test code = NEGATIVE NEGATIVE N UBLD) PH (test code = UPH) 6.0 4.5-8.0 A Protein (test code = NEGATIVE NEGATIVE N UPROT) Urobilinogen (test 0.2 See_Comment N [Automat ed message] code = U UROB) The system [facility] generated this result transmit michael reference [...] 41-50 0-10 A (test code = SQEP) [facility] CBC WITH AUTO [id number] 08:52:00 Test Item Value Reference Range Interpretation [...] (test code = IG%) 0.3 % 0.0-0.4 [facility] CHEM [id number] 08:52:00 Test Item Value Reference Range Interpretation [...] (test code = CREA) 0.6 mg/dl 0.6-1.3 [facility] CBC WITH AUTO [id number] 02:37:00 Test Item Value Reference Range Interpretation [...] A value of 55 was entered by [id number] on 01/10/2021 02:3 7 Lymphocytes (test 43 % 13-42 H No previou s value code = LYMPH) was reported. A value of 43 was entered by [id number] on 01/10/2021 02:3 7 Monocytes (test 1 % 4-14 L No previous value code = MONOS) was reported. A value of 1 was entered by [id number] on 01/10/2021 02:3 7 Basophils (test 1 % 0-1 No previous value code = BASO) was reported. A value of 1 was entered by [id number] on 01/10/2021 02:3 7 Normal Morphology Normal WBC RBC Normal RBC \\T\\ N No pre vious value (test code = NRCM) and Platelet WBC was repor michael. A Morphology Morphology,Normal value of N ormal WBC RBC and WBC RBC and Platelet Platelet Morphology Morphology was entered by [id number] on 01/10/2021 02:3 7 STLMLAMYLASE, [id number] 02:14:00 Test Item Value Reference Range Interpretation Comments Amylase (test code = AMYL) 46 U/L 25-115 [id number] 02:14:00 Test Item Value Reference Range Interpretation Comments Lipase (test code = LIPA) 115 U/L 73-393 STLMLURINALYSIS WITH [id number] 02:07:00 Test Item Value Reference Range Interpretation Comments Color (test code = Light-Yellow UCOLR) Clarity (test code = Cloudy UCLAR) Glucose (test code = NEGATIVE NEGATIVE N UGLUC) Bilirubin (test code NEGATIVE NEGATIVE N = UBILI) Ketones (test code = NEGATIVE NEGATIVE N UKET) Specific [place] 1.025 1.005-1.030 A (test code = USPGR) Blood (test code = NEGATIVE NEGATIVE N UBLD) PH (test code = UPH) 6.0 4.5-8.0 A Protein (test code = NEGATIVE NEGATIVE N UPROT) Urobilinogen (test 0.2 See_Comment N [Automat ed message] code = U UROB) The system [facility] generated this result transmit michael reference [...] SEEN A Epithelial (test code = NSE) [facility] CHEM [id number] 01:50:00 Test Item Value Reference Range Interpretation [...] (test code = CREA) 0.6 mg/dl 0.6-1.3 STLML- CT ABD PELVIS [id number] 03:46:[address] [facility] : 1985 Sex: F FAX: Annemarie Tesfaye [phone] [place]: [address]: REG Name: LAUREN BETH [facility] : 1985 Age/S: 35/F [address] Unit: [id number] Loc: [place] [address] Phys: TesfayeAnnemarie SET STAFF FITTER Acct: [id number] Dis Date: Status: REG ER PHONE #: [phone] Exam Date: 12/13/2020 0325 FAX #: [phone] Reason: DIFFUSE ABD PAIN WORSE RLQ, HX APPY, ROSE EXAMS: CPT CODE: [id number] CT ABD PELVIS W/CONT 58934 AFTER HOURS SERVICE ON: 12/13/2020 3:44 AM [...] 1 Signed Report (CONTINUED) FAX: Annemarie Tesfaye [phone] [place]: St: REG------ Name: LAUREN BETH [facility] : 1985 Age/S: 35/F [address] Unit: [id number] Loc: CHRISTEL Barros, [place] [address]Gczx: Annemarie Tesfaye NP Acct: [id number] Dis Date: Status: REG ER PHONE #: [phone] Exam Date: 12/13/2020 0325 FAX #: [phone] Reason: DIFFUSE ABD PAIN WORSE RLQ, HX APPY, ROSE EXAMS: CPT CODE: [id number] CT ABD PELVIS W/CONT 81273 <Continued> CC: Annemarie Tesfaye SET STAFF FITTER Technologist: PAMELA KRISHNAMURTHY; Jessi Guillory; JAIRO SANCHEZ JR Trnscrd Dt/Tm: 12/13/2020 (0346) VereniceMA50 Orig Print D/T: S: 12/13/2020 (0349 PAGE 2 Signed ReportCOMPREHENSIVE METABOLIC [id number] 03:32:00 Test Item Value Reference Range Interpretation [...] U/L 38-126 N (test code = ALKP) [id number] 03:32:00 Test Item Value Reference Range Interpretation Comments LIPASE (test code = LIP) 82 U/L 23-300 N BEDSIDE [id number] 03:24:00 Test Item Value Reference Range Interpretation Comments BEDSIDE CREATININE (test code = 0.60 mg/dL 0.51-1.19 N CREATBED) CBC W/AUTO [id number] 03:14:00 Test Item Value Reference Range Interpretation [...] 0.0-0.1 N UA RFLX MICR CULT IF [id number] 02:59:00 Test Item Value Reference Range Interpretation [...] OF URINE: VOIDEDSTAT LAB CBC WITH AUTO [id number] 15:12:00 Test Item Value Reference Range Interpretation [...] entered by SB80 82 on 12/12/2020 15:12 [facility] LAB CHEM [id number] 14:08:00 Test Item Value Reference Range Interpretation [...] code = CREA) 0.5 mg/dl 0.6-1.3 L [facility] LAB URINALYSIS WITHOUT [id number] 12:08:00 Test Item Value Reference Range Interpretation Comments Color (test code = Light-Yellow UCOLR) Clarity (test code = Cloudy UCLAR) Glucose (test code = NEGATIVE NEGATIVE N UGLUC) Bilirubin (test code NEGATIVE NEGATIVE N = UBILI) Ketones (test code = NEGATIVE NEGATIVE N UKET) Specific [place] 1.015 1.005-1.030 A (test code = USPGR) Blood (test code = NEGATIVE NEGATIVE N UBLD) PH (test code = UPH) 7.0 4.5-8.0 A Protein (test code = NEGATIVE NEGATIVE N UPROT) Urobilinogen (test 0.2 See_Comment N [Automat ed message] code = U UROB) The system [employer] generated this result transmit michale reference range : 0.2. The refere nce range was not u sed to interpret th is result as normal/abnormal . Nitrite (test code = NEGATIVE NEGATIVE N UNITR) Leukocyte Esterase NEGATIVE NEGATIVE N (test code = ULEUK) [facility]2020-11-21 08:43:00 Test Item [...] 0.4 mg/dl 0.0-1.1 IBIL) [facility]INAL[facility] WITH [id number] 08:31:00 Test Item Value Reference Range Interpretation Comments Color (test code = Light-Yellow UCOLR) Clarity (test code = Clear UCLAR) Glucose (test code = NEGATIVE NEGATIVE N UGLUC) Bilirubin (test code NEGATIVE NEGATIVE N = UBILI) Ketones (test code = NEGATIVE NEGATIVE N UKET) Specific [place] 1.020 1.005-1.030 A (test code = USPGR) Blood (test code = NEGATIVE NEGATIVE N UBLD) PH (test code = UPH) 6.5 4.5-8.0 A Protein (test code = NEGATIVE NEGATIVE N UPROT) Urobilinogen (test 0.2 See_Comment N [Automat ed message] code = U UROB) The system [employer] generated this result transmit michael reference range [...] TNTC 0-10 A (test code = SQEP) [facility] LAB CHEM [id number] 08:27:00 Test Item Value Reference Range Interpretation [...] code = CREA) 0.5 mg/dl 0.6-1.3 L [facility] LAB CBC WITH AUTO [id number] 08:26:00 Test Item Value Reference Range Interpretation [...] IG%) 0.4 % 0.0-0.4 [facility]ufkinXR ABDOMEN 2 VIEWS FLAT / [id number] 08:18:50[facility] ([facility]/[place])Name: LAUREN BETH : 1985 Sex: FProcedure: XR ABDOMEN 2 VIEWS FLAT / UPRIGHTOrder Date: 11/21/2020 7:43 AMOrdering Provider: REHAN COTTONClinical Indication: [id number]: Abdominal painComparison: Nov 14 2020Findings:Bowel gas pattern is non-obstructive. No pneumoperitoneum.There is moderate volume stool burden.Surgical clips in the right upper quadrant of the abdomen.Impression:Nonobstructive bowel gas pattern.This final reportwas electronically signed by Dr Silver Benitez MD :13 AMDictated By: Maggie BENITEZte: 11/21/2020 08:13[facility] ABD[facility]EN[facility]PELVIS W/O CONTRAST 2020-11-14 14:11:31 [facility] ([place]/[place])Name: LAUREN BETH : 1985 Sex: FProcedure: CT ABDOMEN/PELVIS W/O CONTRASTOrder Date: 11/14/2020 1:22 PMOrdering Provider: BILLY ACOSTA .Clinical Indication: [id number]: Right flank painComparison: Renal ultrasound November 08, [...] MD 12:05 PMDictated By: FARZAD DEWITT.Date: 11/14/2020 14:05[facility] LAB , [id number] 13:31:00 Test Item Value Reference Range Interpretation Comments (Urine) (test code = Negative PREGU) ONLY AVAILABLE 8A-12[facility] LAB CHEM [id number] 11:09:00 Test Item Value Reference Range Interpretation [...] code = CREA) 0.5 mg/dl 0.6-1.3 L [facility] LAB URINALYSIS WITHOUT [id number] 11:08:00 Test Item Value Reference Range Interpretation Comments Color (test code = Yellow Lt. Yellow A UCOLR) Clarity (test code = Clear UCLAR) Glucose (test code = Negative Negative N UGLUC) Bilirubin (test code Negative Negative N = UBILI) Ketones (test code = Negative Negative N UKET) Specific [place] 1.025 1.005-1.030 A (test code = USPGR) Blood (test code = Trace-intact Negative A UBLD) PH (test code = UPH) 6.0 4.5-8.0 A Protein (test code = Negative Negative N UPROT) Urobilinogen (test 0.2 See_Comment N [Automat ed message] code = U UROB) The system [employer] generated this result transmit michael reference range : 0.2. The refere nce range was not u sed to interpret th is result as normal/abnormal . Nitrite (test code = Negative Negative N UNITR) Leukocyte Esterase Negative Negative N (test code = ULEUK) [facility] LAB CBC WITH AUTO [id number] 11:05:00 Test Item Value Reference Range Interpretation [...] (test code = IG%) 0.4 % 0.0-0.4 [facility] HospitalC[facility], [id number] 08:43:00Specimen: Urine SpecimensCollected: 11/08/2020 09:59 Status: Final Last Updated: 11/09/2020 08:43 CULTURE (Final) (Final) Few Mixed Body Gabriela Isolated No Pathogens [facility]olatedA[facility]-LukinUS RENAL & BLADDER (KIDNEYS)2020-11-08 12:00:28[facility] ([facility]/[place])Name: LAUREN BETH : 1985 Sex: FProcedure: [...] MD 111:54 AMDictated By: GLORY BENITEZKDate: 11/08/2020 11:54[facility]IN[facility] WITH MICROSCOPIC 2020-11-08 10:58:00 Test Item Value Reference Range Interpretation Comments Color (test code = Yellow UCOLR) Clarity (test code = Clear UCLAR) Glucose (test code = NEGATIVE NEGATIVE N UGLUC) Bilirubin (test code = NEGATIVE NEGATIVE N UBILI) Ketones (test code = NEGATIVE NEGATIVE N UKET) Specific [place] (test 1.030 1.005-1.030 A code = USPGR) Blood (test code = NEGATIVE NEGATIVE N UBLD) PH (test code = UPH) 6.0 4.5-8.0 A Protein (test code = NEGATIVE NEGATIVE N UPROT) Urobilinogen (test code 0.2 See_Comment N [Au tomated message] = U UROB) The system [employer] generated this result transmitted ref erence range: [...] (test code = SQEP) [facility] TownshipstefanieCUMICAELA, [id number] 08:13:00ER 17Specimen: Urine SpecimensCollected: 11/01/2020 01:10 Status: Final Last Updated: 11/02/2020 08:13 (1) ER 17 CULTURE (Final) (Final) Few Mixed Body Gabriela Isolated No Pathogens IsolatedAur[facility]-LufkinXR ABD SERIES W/PA CXR 2020-11-01 03:48:37 [facility] ([facility])Name: LAUREN BETH : 1985 Sex: FPROCEDURE INFORMATION:Exam: [...] CDT.Dictated By: FILIPPO RAMOSDate: 11/01/2020 03:48[facility] TERRALHEPATIC FUNCTION PANEL (LIVER)2020-11-01 02:14:00 Test Item Value [...] (test code = 0.1 mg/dl 0.0-1.1 IBIL) [address] LAB CHEM [id number] 01:57:00 Test Item Value Reference Range Interpretation [...] = CREA) 0.5 mg/dl 0.6-1.3 L ER [address] [place] [address]-LufkinURINALYSIS WITH [id number] 01:56:00 Test Item Value Reference Range Interpretation Comments Color (test code = Light-Yellow UCOLR) Clarity (test code = Clear UCLAR) Glucose (test code = 50 NEGATIVE A UGLUC) Bilirubin (test code NEGATIVE NEGATIVE N = UBILI) Ketones (test code = NEGATIVE NEGATIVE N UKET) Specific [place] 1.025 1.005-1.030 A (test code = USPGR) Blood (test code = NEGATIVE NEGATIVE N UBLD) PH (test code = UPH) 6.0 4.5-8.0 A Protein (test code = TRACE NEGATIVE A UPROT) Urobilinogen (test 0.2 See_Comment N [Automat ed message] code = U UROB) The system [facility] generated this result transmit michael reference [...] 0-10 A (test code = SQEP) ER [address] [place] [address] LAB CBC WITH AUTO [id number] 01:55:00 Test Item Value Reference Range Interpretation [...] (test code = IG%) 0.4 % 0.0-0.[address]-[place]HEPAT[place] FUN[place] PANEL (LIVER)2020-10-05 01:26:00 Test Item Value [...] (test code = 0.1 mg/dl 0.0-1.1 IBIL) [address]-[id number] 01:26:00 Test Item Value Reference Range Interpretation Comments Lipase (test code = LIPA) 154 U/L 73-[address] [place] [address] LAB CHEM [id number] 01:15:00 Test Item Value Reference Range Interpretation [...] (test code = CREA) 0.6 mg/dl 0.6-1.[address] LAB , [id number] 01:14:00 Test Item Value Reference Range Interpretation Comments (Urine) (test code = Negative PREGU) [address] LAB CBC WITH AUTO [id number] 01:13:00 Test Item Value Reference Range Interpretation [...] = IG%) 0.9 % 0.0-0.4 [address] [place], [place] [address]Pnaszx-[id number] 04:21:00 Test Item Value Reference Range Interpretation Comments Lipase (test code = LIPA) 146 U/L 73-393 [facility] (LIVER)2020-09-18 04:21:00 Test Item Value [...] 0.1 mg/dl 0.0-1.1 IBIL) [facility]-fkinAMYLASE, [id number] 04:21:00 Test Item Value Reference Range Interpretation Comments Amylase (test code = AMYL) 47 U/L 25-115 [facility]-[place]kinURINALYSIS WITH [id number] 03:06:00 Test Item Value Reference Range Interpretation Comments Color (test code = Light-Yellow UCOLR) Clarity (test code = Clear UCLAR) Glucose (test code = NEGATIVE NEGATIVE N UGLUC) Bilirubin (test code NEGATIVE NEGATIVE N = UBILI) Ketones (test code = TRACE NEGATIVE A UKET) Specific [place] 1.025 1.005-1.030 A (test code = USPGR) Blood (test code = NEGATIVE NEGATIVE N UBLD) PH (test code = UPH) 5.5 4.5-8.0 A Protein (test code = NEGATIVE NEGATIVE N UPROT) Urobilinogen (test 0.2 See_Comment N [Automat ed message] code = U UROB) The system [facility] generated this result transmit michael reference [...] SEEN A Epithelial (test code = NSE) [facility] LAB CHEM [id number] 02:51:00 Test Item Value Reference Range Interpretation [...] (test code = CREA) 0.6 mg/dl 0.6-1.3 [facility] LAB CBC WITH AUTO [id number] 02:50:00 Test Item Value Reference Range Interpretation [...] 0.5 % 0.0-0.4 H [facility]-[place]kinXR ABDOMEN 1 VIEW (KUB)2020-09-12 01:51:21 [facility] ([facility])Name: LAUREN BETH : 1985 Sex: FPROCEDURE INFORMATION:Exam: [...] CDT.Dictated By: CELESTINO ALLENDate: 09/12/2020 01:50[facility] LAB CBC WITH AUTO [id number] 01:29:00 Test Item Value Reference Range Interpretation [...] = IG%) 0.4 % 0.0-0.4 [facility] CHEM [id number] 01:28:00 Test Item Value Reference Range Interpretation [...] (test code = CREA) 0.6 mg/dl 0.6-1.3 [facility]UR[facility] WITH [id number] 03:04:00 Test Item Value Reference Range Interpretation Comments Color (test code = Yellow UCOLR) Clarity (test code = Clear UCLAR) Glucose (test code = 100 NEGATIVE A UGLUC) Bilirubin (test code = NEGATIVE NEGATIVE N UBILI) Ketones (test code = TRACE NEGATIVE A UKET) Specific [place] (test >=1.030 1.005-1.030 A code = USPGR) Blood (test code = NEGATIVE NEGATIVE N UBLD) PH (test code = UPH) 5.5 4.5-8.0 A Protein (test code = NEGATIVE NEGATIVE N UPROT) Urobilinogen (test code 0.2 See_Comment N [Au tomated message] = U UROB) The system [employer] generated this result transmitted ref erence range: [...] None Seen,Trace A UBACT) [facility]-[id number] 03:01:00 Test Item Value Reference Range Interpretation [...] ( 4 - SerumAlbumin)] EGFR if >60 Mexican (test code mL/min/1.73m\\ = EGFRAA) S\\2 EGFR if Non- >60 Estimate d Glomerular Mexican (test code mL/min/1.73m\\ Filtrat ion Rate (eGFR) [...] c hronic kidney failure. [facility] CenterThjynq-[id number] 03:01:00 Test Item Value Reference Range Interpretation Comments Lipase (test code = LIPA) 145 U/L 73-393 [facility] LAB TEST, Serum Qualitative 2020-08-22 02:48:00 Test Item Value Reference Range Interpretation Comments (Serum) (test code = Negative PREGS) [facility] LAB CBC WITH AUTO [id number] 02:28:00 Test Item Value Reference Range Interpretation [...] code = IG%) 0.5 % 0.0-0.4 H [facility] (LIVER)2020-08-06 02:59:00 Test Item [...] code = 0.1 mg/dl 0.0-1.1 IBIL) ER [address] [place], [place] [address]Yhyltm-[id number] 02:59:00 Test Item Value Reference Range Interpretation Comments Lipase (test code = LIPA) 167 U/L 73-[address] [place] [address]-[place]kinURINALYSIS WITH [id number] 02:48:00 Test Item Value Reference Range Interpretation Comments Color (test code = UCOLR) Yellow Clarity (test code = UCLAR) Clear Glucose (test code = UGLUC) NEGATIVE NEGATIVE N Bilirubin (test code = UBILI) NEGATIVE NEGATIVE N Ketones (test code = UKET) NEGATIVE NEGATIVE N Specific [place] (test code = >=1.030 1.005-1.030 A USPGR) [...] = UBACT) 4+ None Seen,Trace A ER [address] [place] [address]-[place]CT ABDOMEN/PELVIS W/O [id number] 02:34:52ER 16 R/O KIDNEY STONE [facility] ([facility]/)Name: LAUREN BETH : [id number] Sex: FPROCEDURE INFORMATION:Exam: CT Abdomen And Pelvis [...] AM CDT.Dictated By: HOLLIS FERRERADate: 08/06/2020 02:34[facility] LAB CHEM 8 2020-08-06 02:29:00 Test Item [...] code = CREA) 0.4 mg/dl 0.6-1.[address] LAB CBC WITH AUTO [id number] 02:29:00 Test Item Value Reference Range Interpretation [...] = IG%) 0.7 % 0.0-0.4 H ER [address] [place], [place] [address]Dxtecz-[id number] 09:31:00 Test Item Value Reference Range Interpretation Comments Lipase (test code = LIPA) 117 U/L 73-393 [facility] (LIVER)2020-07-19 09:31:00 Test Item [...] = 0.3 mg/dl 0.0-1.1 IBIL) [facility]kinXR ABDOMEN 2 VIEWS FLAT / [id number] 09:22:50[facility] ([facility])Name: LAUREN BETHMEENA DIAZB: [id number] Sex: FProcedure: XR ABDOMEN 2 VIEWS FLAT / UPRIGHTOrder Date: 07/19/2020 8:40 AMOrdering Provider: REHAN COTTON .Clinical Indication: [id number]: Abdominal painComparison: July 05, 2020Findings:Postoperative change consisting [...] MD :17 AMDictated By: FARZAD DEWITT.Date: 07/19/2020 09:17[facility] LAB CHEM [id number] 09:10:00 Test Item Value Reference Range Interpretation [...] code = CREA) 0.5 mg/dl 0.6-1.3 L [facility] LAB CBC WITH AUTO [id number] 09:09:00 Test Item Value Reference Range Interpretation [...] code = IG%) 0.7 % 0.0-0.4 H [facility] LAB URINALYSIS WITHOUT [id number] 09:08:00 Test Item Value Reference Range Interpretation Comments Color (test code = UCOLR) Yellow Lt. Yellow A Clarity (test code = UCLAR) Clear Glucose (test code = UGLUC) Negative Negative N Bilirubin (test code = UBILI) Negative Negative N Ketones (test code = UKET) Negative Negative N Specific [place] (test code = USPGR) >=1.030 1.005-1.030 A Blood (test code = UBLD) Negative Negative N PH (test code = UPH) 6.0 4.5-8.0 A Protein (test code = UPROT) Negative Negative N Urobilinogen (test code = U UROB) 0.2 >0.2 N Nitrite (test code = UNITR) Negative Negative N Leukocyte Esterase (test code = Negative Negative N ULEUK) [facility] CountykinCULTURE, [id number] 08:00:00Specimen: Urine SpecimensCollected: 07/05/2020 03:00 Status: Final Last Updated: 07/07/2020 08:00 CULTURE (Final) (Final) No Growth After 48 HoursA[facility]-LufkinXR ABDOMEN 1 VIEW (KUB)2020-07-05 04:07:04 [facility] ([facility]/[place])Name: LAUREN BETH : [id number] Sex: FPROCEDURE INFORMATION:Exam: XR Abdomen, 1 ViewExam [...] 4:06 AM CDT.Dictated By: OSKAR CRANE: 07/05/2020 04:06[facility] LAB , [id number] 03:54:00 Test Item Value Reference Range Interpretation Comments (Urine) (test code = Negative PREGU) [facility]kinSTAT LAB CHEM [id number] 03:53:00 Test Item Value Reference Range Interpretation [...] code = CREA) 0.5 mg/dl 0.6-1.3 L [facility] LAB CBC WITH AUTO [id number] 03:51:00 Test Item Value Reference Range Interpretation [...] = IG%) 0.4 % 0.0-0.4 [facility] CountykinURINALYSIS WITH [id number] 03:33:00 Test Item Value Reference Range Interpretation Comments Color (test code = UCOLR) Yellow Clarity (test code = UCLAR) Clear Glucose (test code = UGLUC) NEGATIVE NEGATIVE N Bilirubin (test code = UBILI) Small NEGATIVE A Ketones (test code = UKET) TRACE NEGATIVE A Specific [place] (test code = USPGR) 1.020 1.005-1.030 A [...] Trace None Seen,Trace N [facility]-[place]kinCT ABDOMEN/PELVIS W/[id number] 16:44:35 [facility] ([facility]/[place])Name: LAUREN BETH : [id number] Sex: FProcedure: CT ABDOMEN/PELVIS W/CONTRASTOrder date: 06/07/2020 3:47 PMOrdering Provider: REHAN Farrellinical Indication: [id number]: Left flank painComparison: 06/07/20Technique: Multiple axial helical [...] PMDictated By: WILEY VELÁZQUEZDate: 06/07/2020 16:38[facility]ALURINALYSIS WITH [id number] 15:22:00 Test Item Value Reference Range Interpretation Comments Color (test code = UCOLR) Yellow Clarity (test code = UCLAR) Clear Glucose (test code = UGLUC) NEGATIVE NEGATIVE N Bilirubin (test code = UBILI) NEGATIVE NEGATIVE N Ketones (test code = UKET) NEGATIVE NEGATIVE N Specific [place] (test code = USPGR) 1.020 1.005-1.030 A [...] code = UBACT) Trace None Seen,Trace N [facility] LAB CHEM [id number] 15:10:00 Test Item Value Reference Range Interpretation [...] code = CREA) 0.4 mg/dl 0.6-1.3 L [facility] LAB CBC WITH AUTO [id number] 15:08:00 Test Item Value Reference Range Interpretation [...] code = IG%) 0.5 % 0.0-0.4 [facility]CT [facility]/ PELVIS W/O CON (RENAL STONE)2020-06-07 14:56:05[facility] ([facility]/)Name: LAUREN BETH : [id number] Sex: FProcedure: CT ABD/ PELVIS W/O CON (RENAL STONE)Order date: 06/07/2020 2:18 PMOrdering Provider: REHAN Farrellinical Indication: [id number]: Left flank painComparison: 05/31/20TECHNIQUE:Using a helical scanner, sequential axial imaging of the abdomen andpelvis was obtained without the administration of intravenous or oral contrast.The exam was obtained from the superior aspect of eachkidney through the pubicsymphysis. 2-D sagittal and coronal [...] MD 06/07/20202:49 PMDictated By: WILEY VELÁZQUEZDate: 06/07/2020 14:49[facility]ALCT ABDOMEN/PELVIS W/O [id number] 12:27:07NPO 4 hours. Do not withhold meds hyst [facility] ([place])Name: LAUREN BETH : [id number] Sex: FProcedure: CT ABDOMEN/PELVIS W/O CONTRASTOrder Date: 05/31/2020 10:25 AMOrdering Provider: ME ANN MARIE MCBRIDEClinical Indication: [id number]: Pain radiating to right flankComparison: March 20, [...] MD 05/31/202012:20 PMDictated By: FARZAD DEWITT.Date: 05/31/2020 12:20[facility] [id number] 11:48:00 Test Item Value Reference Range Interpretation Comments Lipase (test code = LIPA) 116 U/L 73-393 [facility] LAB URINALYSIS WITHOUT [id number] 10:59:00 Test Item Value Reference Range Interpretation Comments Color (test code = UCOLR) Light yellow Lt. Yellow A Clarity (test code = UCLAR) Clear Glucose (test code = UGLUC) Negative Negative N Bilirubin (test code = UBILI) Negative Negative N Ketones (test code = UKET) Negative Negative N Specific [place] (test code = 1.025 1.005-1.030 A USPGR) Blood (test code = UBLD) Negative Negative N PH (test code = UPH) 6.0 4.5-8.0 A Protein (test code = UPROT) Negative Negative N Urobilinogen (test code = U 0.2 >0.2 N UROB) Nitrite (test code = UNITR) Negative Negative N Leukocyte Esterase (test code = Negative Negative N ULEUK) [facility] LAB CBC WITH AUTO [id number] 10:58:00 Test Item Value Reference Range Interpretation [...] code = IG%) 0.5 % 0.0-0.4 H [facility] LAB CHEM [id number] 10:53:00 Test Item Value Reference Range Interpretation [...] 0.5 mg/dl 0.6-1.3 L [facility]kinXR ABDOMEN 1 VIEW (KUB)2020-04-25 21:02:16 [facility] ([facility])Name: LAUREN BETH : [id number] Sex: FPROCEDURE INFORMATION:Exam: XR Abdomen, 1 ViewExam [...] PM CDT. Dictated By: TEJAS RODRIGUEZDate: 04/25/2020 21:02MMBAYLOR [facility]OTT [facility] – PLANOURINUNITED [facility] WITH [id number] 18:57:00 Test Item Value Reference Range Interpretation Comments Color (test code = UCOLR) Yellow Lt. Yellow A Clarity (test code = UCLAR) Clear Glucose (test code = UGLUC) Negative Negative N Bilirubin (test code = UBILI) Negative Negative N Ketones (test code = UKET) Negative Negative N Specific [place] (test code = 1.020 1.005-1.030 A USPGR) [...] code = UBACT) 4+ None Seen,Trace A [facility] LAB CBC WITH AUTO [id number] 18:55:00 Test Item Value Reference Range Interpretation [...] of Platel et clumping was entered by [id number] on 04/25/2020 18:5 5 [facility] LAB CHEM [id number] 18:17:00 Test Item Value Reference Range Interpretation [...] code = CREA) 0.4 mg/dl 0.6-1.3 L [facility], ANAEROBE [id number] 15:20:00FIRST DRAW = 1 aerobic and 1 anerobic CultureSpecimen: BloodCollected: 03/20/2020 18:30 Status: Final Last Updated: 03/26/2020 15:19 (1) FIRST DRAW = 1 aerobic and 1 anerobic Culture CULTURE (Final) (Final) No Growth After 5 DaysMil[facility] [place], [id number] 15:20:00FIRST DRAW = 1 aerobic and 1 anerobic CultureSpecimen: BloodCollected: 03/20/2020 18:30 Status: Final Last Updated: 03/26/2020 15:19 (1) FIRST DRAW = 1 aerobic and 1 anerobic Culture CULTURE (Final) (Final) No Growth [facility] 5 DaysA[facility]-fkinCT ABDOMEN/PELVIS W/[id number] 21:46:442 weeks s/p adhesolysis. Vomiting/pain/fever. Please do CT with PO and IV contrastProcedures: CT ABDOMEN/PELVIS W/CONTRASTExam Date: 03/20/2020 6:04 PMOrdering Physician: REHAN Farrellinical Indication: [id number]: Abdominal painComparison: CT abdomen/pelvis, 02/25/20TECHNIQUE: Spiral multislice [...] 9:40 PMDictated By: ELMER PHAMDate:03/20/2020 21:40[facility] OF TERRALHEPATIC FUNCTION PANEL (LIVER)2020-03-20 19:24:00 Test Item Value [...] 0.3 mg/dl 0.0-1.1 IBIL) [facility] CenterNpytfm-[id number] 19:24:00 Test Item Value Reference Range Interpretation Comments Lipase (test code = LIPA) 69 U/L 73-393 L [facility]2020-[facility] 19:24:00 Test Item Value Reference Range Interpretation Comments Magnesium (test code = MG) 2.0 mg/dl 1.6-2.6 [facility] LAB CHEM [id number] 18:43:00 Test Item Value Reference Range Interpretation [...] code = CREA) 0.5 mg/dl 0.6-1.3 L [facility] LAB LACTIC [id number] 18:42:00 Test Item Value Reference Range Interpretation Comments LACTATE (test code = 2.50 mmol/l 0.90-1.70 HH R&RB tai hassan rn LAC) @1842 [facility] LAB CBC WITH AUTO [id number] 18:41:00 Test Item Value Reference Range Interpretation [...] IG%) 0.4 % 0.0-0.4 [facility]-LufkinSP PERC PLMNT MIDLINE NO PORT [...] secured to the skin in the usual fashion.Foreign Law Consultant images were recorded and stored in the [facility] fordocumentation. The patient tolerated the procedure well and there were noimmediate complications.Impression:1. Successful upper extremity vascular access.This final report was electronically signed by Dr Farzad Dewitt MD 03/15/20201:14 PMDictated By: FARZAD DEWITT.Date: 03/15/2020 13:14[facility] TERRALCORONAVIRUS 2019 (IN HOUSE)2020-03-13 21:03:00 Test Item Value [...] recol lection of specimen. [facility]-LufkinXR ABD SERIES W/PA [id number] 17:33:07 Procedure: XR ABD SERIES W/PA CXROrder [...] MD 03/13/20205:26 PMDictated By: GLORY BENITEZKDate: 03/13/2020 17:26[facility] OF TERRALSTAT LAB CBC WITH AUTO [id number] 17:23:00 Test Item Value Reference Range Interpretation [...] entered by [id number] on 03/13/2020 17:23 [facility]2020-09-13 17:23:00 Test Item Value Reference Range Interpretation Comments Lipase (test code = LIPA) 61 U/L 73-393 L [facility] HospitalHEPATIC FUNCTION PANEL (LIVER)2020-03-13 17:23:00 Test Item [...] 0.4 mg/dl 0.0-1.1 IBIL) [facility]-[place]ufkinURINALYSIS WITH [id number] 16:54:00 Test Item Value Reference Range Interpretation Comments Color (test code = UCOLR) Yellow Lt. Yellow A Clarity (test code = UCLAR) Clear Glucose (test code = UGLUC) Negative Negative N Bilirubin (test code = UBILI) Negative Negative N Ketones (test code = UKET) Negative Negative N Specific [place] (test code = >=1.030 1.005-1.030 A USPGR) [...] code = UBACT) 4+ None Seen,Trace A [facility] LAB CHEM [id number] 16:37:00 Test Item Value Reference Range Interpretation [...] = CREA) 0.4 mg/dl 0.6-1.3 L [facility] PERC PLMNT MIDLINE NO PORT > 5 [...] MD 03/02/202012:17 PMDictated By: GLORY BENITEZKDate: 03/02/2020 12:17[facility] 2019 (IN HOUSE)2020-03-01 18:48:00 Test Item Value [...] recol lection of specimen. [facility]-LufkinPT AND [id number] 11:51:00 Test Item Value Reference Range Interpretation [...] 2. 5 - 3.5 [facility]-[id number] 11:51:00 Test Item Value Reference Range Interpretation Comments aPTT (test code = PTT) 27.4 seconds 23.9-30.7 [facility]-fkinCBC (HEMOGRAM ONLY)2020-03-01 11:44:00 Test Item Value Reference [...] ON THE RE PORT. [facility]-LufkinCULTURE, [id number] 08:08:00Specimen: Urine RandomCollected: 02/25/2020 11:27 Status: Final Last Updated: 02/27/2020 08:08 CULTURE (Final) (Final) No Growth After 48 HoursA[facility] Countykin [id number] 05:38:00 Test Item Value Reference Range Interpretation [...] 0.5-1.3 code = CREA) EGFR if >60 Mexican (test code mL/min/1.73m\\ = EGFRAA) S\\2 EGFR if Non- >60 Estimate d Glomerular Mexican (test code mL/min/1.73m\\ Filtrat ion Rate (eGFR) [...] and management of c hronic kidney failure. [facility] (Ultra Sensitive)2020-02-26 05:38:00 Test Item Value Reference Range Interpretation Comments TSH (test code = TSH) 0.04 mIU/L 0.35-3.[address] [facility] WITH AUTO [id number] 05:18:00 Test Item Value Reference Range Interpretation [...] 0.5 % 0.0-0.4 H IG%) CBC AUTO diffMeAsp[facility]-LufkinCORONAVIRUS 2018 (IN HOUSE)2020-02-25 14:06:00 Test Item Value [...] recol lection of specimen. [facility]-LufkinURINALYSIS WITH [id number] 12:56:00 Test Item Value Reference Range Interpretation Comments Color (test code = UCOLR) Yellow Lt. Yellow A Clarity (test code = UCLAR) Slightly Cloudy Glucose (test code = UGLUC) Negative Negative N Bilirubin (test code = UBILI) Negative Negative N Ketones (test code = UKET) Negative Negative N Specific [place] (test code = >=1.030 1.005-1.030 A USPGR) [...] code = UBACT) Trace None Seen,Trace N [facility] HospitalLIPASE2020-08-27 12:52:00 Test Item Value Reference Range Interpretation Comments Lipase (test code = LIPA) 90 U/L 73-393 [facility] HospitalHEPATIC FUNCTION PANEL (LIVER)2020-02-25 12:52:00 Test Item [...] 0.3 mg/dl 0.0-1.1 IBIL) [facility]-[place]CT ABDOMEN/PELVIS W/[id number] 12:42:41NPO 4 hours. Do not withhold medsProcedure: CT ABDOMEN/PELVIS W/CONTRASTOrder date: 02/25/2020 11:26 AMOrdering Provider: KAYWIN CARTERClinical Indication: Nausea and vomiting with abdominal pain.Comparison: [...] MD 02/25/202012:36 PMDictated By: WILEY VELÁZQUEZDate: 02/25/2020 12:36[facility] LAB CHEM 2020-02-25 12:07:00 Test Item [...] code = CREA) 0.5 mg/dl 0.6-1.3 L [facility] LAB CBC WITH AUTO [id number] 12:05:00 Test Item Value Reference Range Interpretation [...] (test code = IG%) 0.3 % 0.0-0.4 [facility] LAB CBC WITH AUTO [id number] 03:15:00 Test Item Value Reference Range Interpretation [...] IG%) 0.6 % 0.0-0.4 H [facility] CHEM [id number] 02:55:00 Test Item Value Reference Range Interpretation [...] CREA) 0.5 mg/dl 0.6-1.3 L [facility] CountykinXR ABDOMEN 1 VIEW (KUB)2020-02-25 02:45:30 PROCEDURE INFORMATION:Exam: [...] By: JORGE LUIS WHITEDate: 02/25/2020 02:45[facility] OF Integrity Tracking [facility] LAB , URINE 2020-02-25 01:12:00 Test Item Value Reference Range Interpretation Comments (Urine) (test code = Negative PREGU) [facility]-[place]STAT LAB URINALYSIS WITHOUT [id number] 01:11:00 Test Item Value Reference Range Interpretation Comments Color (test code = UCOLR) Yellow Lt. Yellow A Clarity (test code = UCLAR) Clear Glucose (test code = UGLUC) Negative Negative N Bilirubin (test code = UBILI) Negative Negative N Ketones (test code = UKET) Negative Negative N Specific [place] (test code = USPGR) >=1.030 1.005-1.030 A Blood (test code = UBLD) Negative Negative N PH (test code = UPH) 5.5 4.5-8.0 A Protein (test code = UPROT) Negative Negative N Urobilinogen (test code = U UROB) 0.2 >0.2 N Nitrite (test code = UNITR) Negative Negative N Leukocyte Esterase (test code = Negative Negative N ULEUK) [facility]-[place]kinXR ABDOMEN 1 VIEW (KUB)2020-02-10 06:46:05 Procedure: XR ABDOMEN 1 VIEW (KUB)Order date: 02/10/2020 4:01 AMOrdering Provider: JUAN Galiciainical Indication: Abdominal painComparison: NoneFindings:There is no small or large bowel distention.There is no pneumoperitoneum.There are no suspicious calcifications.There is no skeletal abnormality.Impression:1. Negative single view abdomen.This final report was electronically signed by Dr Wiley Velázquez MD 02/10/20206:39 AMDictated By: WILEY VELÁZQUEZDate: 02/10/2020 06:39[facility] OF Integrity Tracking [facility] (K[facility])2020-02-10 05:31:33PROCEDURE INFORMATION:Exam: US [...] By: JORGE LUIS WHITEDate: 02/10/2020 05:31[facility] OF TERRALURINALYSIS WITH [id number] 05:10:00 Test Item Value Reference Range Interpretation Comments Color (test code = UCOLR) Yellow Lt. Yellow A Clarity (test code = UCLAR) Clear Glucose (test code = UGLUC) >=1000 Negative A Bilirubin (test code = UBILI) Negative Negative N Ketones (test code = UKET) Negative Negative N Specific [place] (test code = 1.015 1.005-1.030 A USPGR) [...] = UBACT) None Seen None Seen,Trace N [facility] CenterQtjuwp-[id number] 04:42:00 Test Item Value Reference Range Interpretation Comments Lipase (test code = LIPA) 91 U/L 73-393 [facility] HospitalHEPAT[facility] FUNCTION PANEL (LIVER)2020-02-10 04:42:00 Test Item [...] (test code = 0.2 mg/dl 0.0-1.1 IBIL) [facility] LAB CHEM [id number] 04:27:00 Test Item Value Reference Range Interpretation [...] (test code = CREA) 0.6 mg/dl 0.6-1.3 [facility] LAB , [id number] 04:24:00 Test Item Value Reference Range Interpretation Comments (Urine) (test code = Negative PREGU) [facility] LAB CBC WITH AUTO [id number] 04:22:00 Test Item Value Reference Range Interpretation [...] 0.5 % 0.0-0.4 H [facility] L SPINE W/O [id number] 12:46:24 Procedure: CT L SPINE W/O CONTRASTOrder date: 01/25/2020 11:46 AMOrdering Provider: DONALD Healyinical Indication: [id number]: Low back painComparison: NoneTechnique: Using a multislice [...] MD 01/25/202012:39 PMDictated By: WILEY VELÁZQUEZDate: 01/25/2020 12:39[facility] OF TERRALHEPATIC FUNCTION PANEL (LIVER)2019-12-09 05:49:00 Test Item Value [...] (test code = 0.3 mg/dl 0.0-1.1 IBIL) [address]-[id number] 05:49:00 Test Item Value Reference Range Interpretation Comments Lipase (test code = LIPA) 105 U/L 73-[address] LAB CHEM [id number] 05:06:00 Test Item Value Reference Range Interpretation [...] code = CREA) 0.5 mg/dl 0.6-1.[address] LAB CBC WITH AUTO [id number] 05:04:00 Test Item Value Reference Range Interpretation [...] code = IG%) 0.4 % 0.0-0.[address] [place] [address]-[id number] 02:23:00 Test Item Value Reference Range Interpretation [...] ( 4 - SerumAlbumin)] EGFR if >60 Mexican (test code mL/min/1.73m\\ = EGFRAA) S\\2 EGFR if Non- >60 Estimate d Glomerular Mexican (test code mL/min/1.73m\\ Filtrat ion Rate (eGFR) [...] c hronic kidney failure. [facility]-[place]ufkinURINALYSIS WITH [id number] 02:11:00 Test Item Value Reference Range Interpretation Comments Color (test code = UCOLR) Yellow Lt. Yellow A Clarity (test code = UCLAR) Clear Glucose (test code = UGLUC) Negative Negative N Bilirubin (test code = UBILI) Negative Negative N Ketones (test code = UKET) Trace Negative A Specific [place] (test code = USPGR) >=1.030 1.005-1.030 A [...] code = UBACT) 2+ None Seen,Trace A [facility] LAB CBC WITH AUTO [id number] 02:03:00 Test Item Value Reference Range Interpretation [...] IG%) 0.4 % 0.0-0.4 [facility] ABDOMEN/PELVIS W/[id number] 22:43:00NPO 4 hours. Do not withhold meds [...] 201910:42 PM CDT.Dictated By: JOSUÉ MCGHEEDate: 10/07/2019 22:42[facility] 2019-10-07 22:05:00 Test Item Value [...] 0.5-1.3 code = CREA) EGFR if >60 Mexican (test code mL/min/1.73m\\ = EGFRAA) S\\2 EGFR if Non- >60 Estimate d Glomerular Mexican (test code mL/min/1.73m\\ Filtrat ion Rate (eGFR) [...] c hronic kidney failure. [facility]-LufkinAMYLASE, [id number] 22:05:00 Test Item Value Reference Range Interpretation Comments Amylase (test code = AMYL) 43 U/L 25-115 [facility] CenterKkxghk-[id number] 22:05:00 Test Item Value Reference Range Interpretation Comments Lipase (test code = LIPA) 95 U/L 73-393 [facility]-[place]ufkinURINALYSIS WITH [id number] 21:49:00 Test Item Value Reference Range Interpretation Comments Color (test code = UCOLR) Yellow Lt. Yellow A Clarity (test code = UCLAR) Clear Glucose (test code = UGLUC) Negative Negative N Bilirubin (test code = UBILI) Negative Negative N Ketones (test code = UKET) 15 Negative A Specific [place] (test code = USPGR) >=1.030 1.005-1.030 A [...] code = UBACT) 3+ None Seen,Trace A [facility] LAB CBC WITH AUTO [id number] 21:45:00 Test Item Value Reference Range Interpretation [...] (test code = IG%) 0.4 % 0.0-0.4 [facility] LAB , [id number] 21:36:00 Test Item Value Reference Range Interpretation Comments (Urine) (test code = Negative PREGU) [facility] ABDOMEN/PELVIS W/O [id number] 03:56:36 PROCEDURE INFORMATION:Exam: CT Abdomen And Pelvis [...] AM CDT.Dictated By: AMY ORDOÑEZDate: 09/20/2019 03:56 [facility] [id number] 02:07:00 Test Item Value Reference Range Interpretation [...] ( 4 - SerumAlbumin)] EGFR if >60 Mexican (test code mL/min/1.73m\\ = EGFRAA) S\\2 EGFR if Non- >60 Estimate d Glomerular Mexican (test code mL/min/1.73m\\ Filtrat ion Rate (eGFR) [...] c hronic kidney failure. [facility]-[place]kinXR ABDOMEN 2 VIEWS FLAT / [id number] 02:01:15PROCEDURE INFORMATION:Exam: XR Abdomen, 2 ViewsExam date [...] 2:01 AM CDT.Dictated By: AMY ORDOÑEZDate: 09/20/2019 02:01MM OF TERRALURINALYSIS WITH MICROSCOPIC 2019-09-20 01:56:00 Test Item Value Reference Range Interpretation Comments Color (test code = UCOLR) Yellow Lt. Yellow A Clarity (test code = UCLAR) Clear Glucose (test code = UGLUC) >=1000 Negative A Bilirubin (test code = UBILI) Negative Negative N Ketones (test code = UKET) Trace Negative A Specific [place] (test code = USPGR) >=1.030 1.005-1.030 A [...] code = UBACT) 2+ None Seen,Trace A [facility] LAB CBC WITH AUTO [id number] 01:38:00 Test Item Value Reference Range Interpretation [...] 0.5 % 0.0-0.4 H [facility] ABDOMEN/PELVIS W/[id number] 04:23:30 PROCEDURE INFORMATION:Exam: CT Abdomen And Pelvis [...] 20194:23 AM CDT.Dictated By: SETH MEDINADate: 08/17/2019 04:23[facility] OF [id number] 03:34:00 Test Item Value Reference Range Interpretation Comments Lipase (test code = LIPA) 67 U/L 73-393 L [facility]-[id number] 03:34:00 Test Item Value Reference Range Interpretation [...] ( 4 - SerumAlbumin)] EGFR if >60 Mexican (test code mL/min/1.73m\\ = EGFRAA) S\\2 EGFR if Non- >60 Estimate d Glomerular Mexican (test code mL/min/1.73m\\ Filtrat ion Rate (eGFR) [...] c hronic kidney failure. [facility] LAB CBC WITH AUTO [id number] 03:19:00 Test Item Value Reference Range Interpretation [...] 0.7 % 0.0-0.4 H [facility]-fkinURINALYSIS WITH [id number] 03:10:00 Test Item Value Reference Range Interpretation Comments Color (test code = UCOLR) YELLOW Clarity (test code = UCLAR) CLEAR Glucose (test code = UGLUC) NEGATIVE NEGATIVE N Bilirubin (test code = UBILI) NEGATIVE NEGATIVE N Ketones (test code = UKET) NEGATIVE NEGATIVE N Specific [place] (test code = 1.025 1.005-1.030 A USPGR) [...] UBACT) 1+ None Seen,Trace A [facility]kinSTA LAB , [id number] 03:03:00 Test Item Value Reference Range Interpretation Comments (Urine) (test code = Negative PREGU) ONLY AVAILABLE 8A-12[facility]-LufkinED2 [id number] 20:37:00 Test Item Value Reference Range Interpretation [...] (test code = CREA) 0.6 mg/dl 0.6-1.2 [facility]-LufkinED2 [id number] 20:28:00 Test Item Value Reference Range Interpretation [...] code = MPV) 7.1 fL 8.0-11.0 A [facility] TownshipkinCULTURE, [id number] 08:44:25hhm5Ndyyqltt: Urine SpecimensCollected: 07/12/2019 15:00 Status: Final Last Updated: 2019 08:44 (1) err7 Culture Result (Final) (Final) Moderate Mixed Body Gabriela Isolated No Pathogens Isolated No Further Workup PerformedAurora Medical Center-Washington CountykinFL LIMITED [id number] 17:53:41Procedures: [place] LIMITED IVPExam Date: 07/12/2019 3:21 PMOrdering Physician: REHAN Farrellinical Indication: [id number]: Flank painComparison: CT abdomen/pelvis, 05/17/19Findings: Frontal radiographs [...] 5:47 PMDictated By: ELMER PHAMDate: 07/12/2019 17:47[facility] OF [id number] 15:56:00 Test Item Value Reference Range Interpretation Comments Lipase (test code = LIPA) 97 U/L 73-[address]-fkinHEPATIC FUNCTION PANEL (LIVER)2019-07-12 15:56:00 Test Item Value [...] (test code = 0.2 mg/dl 0.0-1.1 IBIL) [address]-LufkinURINALYSIS WITH [id number] 15:51:00 Test Item Value Reference Range Interpretation Comments Color (test code = UCOLR) YELLOW Clarity (test code = UCLAR) CLEAR Glucose (test code = UGLUC) NEGATIVE NEGATIVE N Bilirubin (test code = UBILI) NEGATIVE NEGATIVE N Ketones (test code = UKET) NEGATIVE NEGATIVE N Specific [place] (test code = 1.020 1.005-1.030 A USPGR) [...] code = UBACT) 4+ None Seen,Trace A [address] LAB CHEM [id number] 15:09:00 Test Item Value Reference Range Interpretation [...] code = CREA) 0.6 mg/dl 0.6-1.[address] LAB CBC WITH AUTO [id number] 15:08:00 Test Item Value Reference Range Interpretation [...] code = IG%) 0.4 % 0.0-0.[address]-LufkinCT ABDOMEN/PELVIS W/[id number] 16:33:46NPO 4 hours. Do not withhold medsProcedures: CT ABDOMEN/PELVIS W/CONTRASTExam Date: 05/17/2019 1:31 PMOrdering Physician: MERLE LYNNEClinical Indication: [id number]: Abdominal painComparison: CT abdomen/pelvis, 04/09/19TECHNIQUE: Spiral multislice [...] MD05/17/2019 4:27 PMDictated By: ELMER PHAMDate: 05/17/2019 16:27[facility] OF TERRAL [id number] 16:20:00 Test Item Value Reference Range Interpretation Comments Lipase (test code = LIPA) 70 U/L 73-393 L [facility] LAB CHEM [id number] 15:24:00 Test Item Value Reference Range Interpretation [...] code = CREA) 0.5 mg/dl 0.6-1.3 L [facility] LAB LACTIC [id number] 15:23:00 Test Item Value Reference Range Interpretation Comments LACTATE (test code = LAC) 1.39 mmol/l 0.90-1.70 [facility] LAB CBC WITH AUTO [id number] 15:21:00 Test Item Value Reference Range Interpretation [...] = IG%) 0.5 % 0.0-0.4 H [facility] CountykinURINALYSIS WITH [id number] 15:08:00 Test Item Value Reference Range Interpretation Comments Color (test code = UCOLR) YELLOW Clarity (test code = UCLAR) CLEAR Glucose (test code = UGLUC) NEGATIVE NEGATIVE N Bilirubin (test code = UBILI) NEGATIVE NEGATIVE N Ketones (test code = UKET) NEGATIVE NEGATIVE N Specific [place] (test code = 1.025 1.005-1.030 A USPGR) [...] 2+ None Seen,Trace A [facility] centerCT ANGIO HEAD W/WO [id number] 16:28:5720 g Cathlon Above the Antecubital or higher requiredProcedure: CT ANGIO HEAD W/WO CONTRASTOrder Date: 05/12/2019 3:30 PMOrdering Provider: REHAN VANG SA NDERSClinical Indication: [id number]: HeadacheComparison: NoneTechnique: Using a helical scanner, sequential axial imaging of the brain wasobtained before and after the administration of the contrast medium. At anindependent workstation, 3-D reconstructions of the [place] wereobtained.This examwas performed according to [...] PMDictated By: FARZAD DEWITTDate: 05/12/2019 16:22[facility] OF TERRALCT ABDOMEN/PELVIS W/[id number] 14:36:05NPO 4 hours. Do not withhold medsProcedure: [...] MD 04/09/20192:29 PMDictated By: GLORY BENITEZKDate: 04/09/2019 14:29C [facility] WITH AUTO [id number] 09:02:00 Test Item Value Reference Range Interpretation [...] code = 0.5 % 0.0-0.4 H IG%) [facility] WITH AUTO [id number] 09:14:00 Test Item Value Reference Range Interpretation [...] 0.4 % 0.0-0.4 IG%) [facility]-[id number] 09:12:00 Test Item Value Reference Range Interpretation [...] 0.5-1.3 code = CREA) EGFR if >60 Mexican (test code mL/min/1.73m\\ = EGFRAA) S\\2 EGFR if Non- >60 Estimate d Glomerular Mexican (test code mL/min/1.73m\\ Filtrat ion Rate (eGFR) [...] c hronic kidney failure. [facility]-LufkinSP PERC PLMNT MIDLINE NO PORT [...] complications.Impression:1. Successful upper extremity vascular access.This marianne watts report was electronically signed by Dr Wiley Velázquez MD 04/07/20194:05 PMDictated By: WILEY VELÁZQUEZDate: 04/07/2019 16:05[facility] OF TERRALCT ABDOMEN/PELVIS W/[id number] 22:50:40PROCEDURE INFORMATION:Exam: CT Abdomen and pelvis with [...] CDT.Dictated By: ELMER PHAMDate: 04/04/2019 22:50[facility] OF [id number] 21:22:00 Test Item Value Reference Range Interpretation Comments Lipase (test code = LIPA) 89 U/L 73-393 [facility] (LIVER)2019-04-04 21:22:00 Test Item [...] (test code = 0.3 mg/dl 0.0-1.1 IBIL) [facility] LAB CHEM [id number] 21:07:00 Test Item Value Reference Range Interpretation [...] (test code = CREA) 0.6 mg/dl 0.6-1.3 [facility] LAB URINALYSIS WITHOUT [id number] 21:05:00 Test Item Value Reference Range Interpretation Comments Color (test code = UCOLR) Yellow Lt. Yellow A Clarity (test code = UCLAR) Slightly Cloudy Glucose (test code = UGLUC) 100 Negative A Bilirubin (test code = UBILI) Negative Negative N Ketones (test code = UKET) Negative Negative N Specific [place] (test code = >=1.030 1.005-1.030 A USPGR) Blood (test code = UBLD) Negative Negative N PH (test code = UPH) 5.5 4.5-8.0 A Protein (test code = UPROT) Negative Negative N Urobilinogen (test code = U 0.2 >0.2 N UROB) Nitrite (test code = UNITR) Negative Negative N Leukocyte Esterase (test code Negative Negative N = ULEUK) [facility] LAB CBC WITH AUTO [id number] 21:04:00 Test Item Value Reference Range Interpretation [...] code = IG%) 0.5 % 0.0-0.4 H [facility]kinSTAT LAB , [id number] 21:04:00 Test Item Value Reference Range Interpretation Comments (Urine) (test code = Negative PREGU) ONLY AVAILABLE 8A-12[facility]-LufkinED2 [id number] 16:05:00 Test Item Value Reference Range Interpretation Comments Sodium (test code = CANCELED mmol/l The r eleased value NA) 141 was cancele d by [id number] on 04/04/2019 16:0 5 Potassium (test code CANCELED mmol/l The released value = K) 3.9 was cancele d by [id number] on 04/04/2019 16:0 5 CO2 (test code = CANCELED mmol/l The rele ased value CO2) 23 was canceled by [id number] on 04/04/2019 16:0 5 Chloride (test code CANCELED mmol/l The r eleased value = CL) 108 was cancele d by [id number] on 04/04/2019 16:0 5 Glucose (test code = CANCELED mg/dl The r eleased value GLU) 96 was canceled by [id number] on 04/04/2019 16:0 5 Calcium (test code = CANCELED mg/dl The r eleased value CALC) 8.8 was cancele d by [id number] on 04/04/2019 16:0 5 BUN (test code = CANCELED mg/dl The relea sed value BUN) 11 was canceled by [id number] on 04/04/2019 16:0 5 Creatinine (test CANCELED mg/dl code = CREA) [facility]-fkinHISTOLOGY [id number] 11:08:[address] [place] [address] 85[address]Vjjpt: [phone] JMUM #: [id number] MedicalDirector: Seth Valdez M.D.Surgical Pathology Consultation ReportPatient Name: LAUREN BETH Case #: [id number] Med. Rec. #:[id number] [id number] Date: 03/21/2019 : 1985(Age:33) Received: 03/23/2019 [...] greatest dimension. The cystsarefilled with clearserous fluid. Foreign Law Consultant sections of the ovaryandpossible fallopian tube are submitted in cassettes A1-A8. /03/23/2019 Seth Valdez MD, Board Certified in Anatomic Pathology Microscopic DescriptionMicroscopic examination of the right ovary reveals fibrovascularadhesionsalong the surface of the ovary as well as along the accompanyingfallopiantube. The ovarian parenchyma contains follicular cysts, benign serouscyst,as well as numerous corpus albicans. No areas of endometriosis areseen. Billing Fee Code(s): A; 95133Zvuslhxp[facility]- [place] TRANSVAGINAL W/[id number] 16:45:00 Patient Name: ADELIA BETH Unit No: [id number] EXAMS: CPT CODE: [id number] US TRANSVAGINAL W/PELVIS 84308 CLINICAL HISTORY: Right lower quadrant pain. Status [...] and left oophorectomy. 2. Enlargement of the rightovary with hemorrhagic cyst as well as simple cyst as described above. Blood flow is identified in the right ovary. at 1645 Reported and signed by: Mario Guidry MD CC: Hilaria Calderón MD Technologist: Dipesh Miranda RDMS, RVT Probe: [id number] Trnscrbd D/ (5850) t.MICAELAR.YOS Orig Print D/T: S: 03/10/2019 (6254) [facility] NAME: ADELIA BETH Radiology Department PHYS: SUE. - Hilaria Calderón [address] : 1985 AGE: 33 SEX: F [place] [address] LOC: ALONDRA PHONE #: [phone] EXAM DATE: 03/10/2019 STATUS: REG ER FAX #: [phone] RAD NO: Page 1 Signed Report Patient Name: ADELIA BETH Unit No: [id number] EXAMS: CPT CODE: [id number] US TRANSVAGINAL W/PELVIS 98781 <Continued> [facility] NAME: ADELIA BETH Radiology Department PHYS: SUE. - Hilaria Calderón [address] : 1985 AGE: 33 SEX: F [place] [address] LOC: ALONDRA PHONE #: [phone] EXAM DATE: 03/10/2019 STATUS: REG ER FAX #: [phone] RAD NO: Page 2 Signed Report- US TRANSVAGINAL W/INCVDO3167-03-37 16:45:00 Patient Name: LAUREN BETH Unit No: [id number] EXAMS: CPT CODE: [id number] US TRANSVAGINAL W/PELVIS 64851 CLINICAL HISTORY: Right lower quadrant pain. Status [...] MD Technologist: Dipesh Miranda RDMS, T Probe: [id number] Trnscrbd D/ (1645) Ro Orig Print D/T: S: 03/10/2019 (1648) [facility] NAME: LAUREN BETH Radiology Department PHYS: Hilaria Maldonado [address] : 1985 AGE: 33 SEX: F [place], [place] [address] LOC: ALONDRA PHONE #: [phone] EXAM DATE: 03/10/2019 STATUS: [facility] ER FAX #: [phone] RAD NO: [id number] Page 1 Signed Report Patient Name: LAUREN BETH Unit No: [id number] EXAMS: CPT CODE: [id number] US TRANSVAGINAL W/PELVIS 34011 (Continued) [facility] [place] NAME: LAUREN BETH Radiology Department PHYS: GUTAL. - Sarabjit Calderónondra [address] : 1985 AGE: 33 SEX: F [place], [place] [address]GJCQ NO: [id number] LOC: ALONDRA PHONE #: [phone] EXAM DATE: 03/10/2019 STATUS: [facility] ER FAX #: [phone] RAD NO: [id number] Page 2 Signed Report- US PELVIS [id number] 16:45:00 Patient Name: ADELIA BETH Unit No: [id number] EXAMS: CPT CODE: [id number] US PELVIS COMPLETE 30446 CLINICAL HISTORY: Right lower quadrant pain. Status [...] Dipesh Miranda RDMS, RVT Probe: Trnscrbd D/ (6505) Ro Orig Print D/T: S: 03/10/2019 (8268) [facility] NAME: ADELIA BETH Radiology Department PHYS: SUE. - Hilaria Calderón [address] : 1985 AGE: 33 SEX: F [place], [place] [address] LOC: ALONDRA PHONE #: [phone] EXAM DATE: 0 03/10/2019 STATUS: REG ER FAX #: [phone] RAD NO: Page 1 Signed Report Patient Name: Wendy BETH No: [id number] EXAMS: CPT CODE: [id number] US PELVIS COMPLETE 73638 <Continued> [facility] NAME: ADELIA BETH Radiology Department PHYS: Hilaria Maldonado [address] : 1985 AGE: 33 SEX: [place] [address] LOC: ALONDRA PHONE #: [phone] EXAM DATE: 03/10/2019 STATUS: [facility] ER FAX #: [phone] RAD NO: Page 2 Signed Report- US PELVIS [id number] 16:45:00 Patient Name: LAUREN BETH Unit No: [id number] EXAMS: CPT CODE: [id number] US PELVIS COMPLETE 70168 CLINICAL HISTORY: Right lower quadrant pain. Status [...] Miranda RDMS, RVT Probe: Trnscrbd D/ (1645) t.MICAELAR.YOS Orig Print D/T: S: 03/10/2019 (1648) [facility] NAME: LAUREN BETH Radiology [facility] - Calder[facility],Hilaria [address] : 1985 AGE: 33 SEX: [place], [place] [address] LOC: DayanaraERS PHONE #: [phone] EXAM DATE: 03/10/2019 STATUS: DEP ER FAX #: [phone] RAD NO: [id number] Page 1 Signed Report Patient Name: LAUREN BETH Unit No: [id number] EXAMS: CPT CODE: [id number] US PELVIS COMPLETE 02141 (Continued) [facility] NAME: LAUREN BETH Radiology Department [facility] - Sarabjit Calderónondra [address] : 1985 AGE: 33 SEX: F [place], [place] [address] LOC: DayanaraERS PHONE #: [phone] EXAM DATE: 03/10/2019 STATUS: DEP ER FAX #: [phone] RAD NO: [id number] Page 2 Signed ReportCBC W/AUTO DIFF 2019-03-10 [...] = PLTMR) UA RFLX MICR CULT IF [id number] 16:07:00 Test Item Value Reference Range Interpretation [...] A Indication for culture: Suprapubic PainUR HCG [id number] 16:07:00 Test Item Value Reference Range Interpretation [...] culture: Suprapubic PainUA RFLX MICR CULT IF [id number] 16:04:00 Test Item Value Reference Range Interpretation [...] EPIU) Indication for culture: Suprapubic PainUR HCG [id number] 16:04:00 Test Item Value Reference Range Interpretation [...] culture: Suprapubic PainUA RFLX MICR CULT IF [id number] 15:55:00 Test Item Value Reference Range Interpretation [...] RARE-FEW Indication for culture: Suprapubic PainUR HCG [id number] 15:55:00 Test Item Value Reference Range Interpretation [...] and tested. Indication for culture: Suprapubic PainED2 [id number] 01:18:00 Test Item Value Reference Range Interpretation [...] 6.9 fL 8.0-11.0 A [facility]-LufkinED2 URINE [id number] 00:55:00 Test Item Value Reference Range Interpretation Comments Color (test code = UCOLR) Yellow Lt. Yellow A Clarity (test code = UCLAR) Clear Glucose (test code = UGLUC) NEGATIVE NEGATIVE N Bilirubin (test code = UBILI) NEGATIVE NEGATIVE N Ketones (test code = UKET) NEGATIVE NEGATIVE N Specific [place] (test code = USPGR) 1.030 1.005-1.030 A Blood (test code = UBLD) NEGATIVE NEGATIVE N PH (test code = UPH) 6.0 4.5-8.0 A Protein (test code = UPROT) Trace NEGATIVE A Urobilinogen (test code = U UROB) 0.2 >0.2 N Nitrite (test code = UNITR) NEGATIVE NEGATIVE N Leukocyte Esterase (test code = NEGATIVE NEGATIVE N ULEUK) [facility]-LufkinED2 , [id number] 00:54:00 Test Item Value Reference Range Interpretation Comments (Urine) (test code = Negative PREGU) [facility] CenterPvdylk-[id number] 13:07:00 Test Item Value Reference Range Interpretation Comments Lipase (test code = LIPA) 106 U/L 73-393 [facility]-[place] ABDOMEN/PELVIS W/[id number] 12:24:12Procedures: ED2 CT ABDOMEN/PELVIS W/CONTRASTExam Date: 02/07/2019 10:11 AMOrdering Physician: WYATT Downsinical Indication: [id number]: Epigastric painComparison: CT abdomen/pelvis, 01/27/19TECHNIQUE: Spiral multislice [...] significant retroperitoneal masses or lymphadenopathy.Lymphadenopathy: No retroperitoneal lymph adenopathy.Masses: None.OSSEOUS: No significant CT abnormality of the [...] MD02/07/2019 12:17 PMDictated By: ELMER PHAMDate: 02/07/2019 12:17[facility] [address]2019-08-10 10:48:00 Test Item Value Reference Range Interpretation [...] (test code = TP) 7.6 gm/dl 6.4-8.1 [facility]kinED2 URINE [id number] 10:45:00 Test Item Value Reference Range Interpretation Comments Color (test code = UCOLR) Yellow Lt. Yellow A Clarity (test code = UCLAR) Sl Cloudy Glucose (test code = UGLUC) NEGATIVE NEGATIVE N Bilirubin (test code = UBILI) NEGATIVE NEGATIVE N Ketones (test code = UKET) NEGATIVE NEGATIVE N Specific [place] (test code = 1.025 1.005-1.030 A USPGR) Blood (test code = UBLD) NEGATIVE NEGATIVE N PH (test code = UPH) 5.5 4.5-8.0 A Protein (test code = UPROT) NEGATIVE NEGATIVE N Urobilinogen (test code = U UROB) 0.2 >0.2 N Nitrite (test code = UNITR) NEGATIVE NEGATIVE N Leukocyte Esterase (test code = NEGATIVE NEGATIVE N ULEUK) [place] [address] , [id number] 10:45:00 Test Item Value Reference Range Interpretation Comments (Urine) (test code = Negative PREGU) [place] [address] [id number] 10:44:00 Test Item Value Reference Range Interpretation [...] 6.8 fL 8.0-11.0 A [facility]-[place]kinCT ABDOMEN/PELVIS W/[id number] 12:29:19s/p hysterectomy; rlq painProcedure: CT ABDOMEN/PELVIS W/CONTRASTOrder Date: 01/27/2019 10:57 AMOrdering Provider: DR LEXUS CASTREJON ACOSTAClinical Indication: [id number]: Abdominal painComparison: September 30, 2018TECHNIQUE:The abdo men [...] Dr Silver Benitez MD 01/27/201912:23 PMDictated By: Maggie BENITEZte: 01/27/2019 12:23[facility] OF TERRALURINALYSIS WITH [id number] 12:10:00 Test Item Value Reference Range Interpretation Comments Color (test code = UCOLR) YELLOW Clarity (test code = UCLAR) CLEAR Glucose (test code = UGLUC) NEGATIVE NEGATIVE N Bilirubin (test code = UBILI) NEGATIVE NEGATIVE N Ketones (test code = UKET) NEGATIVE NEGATIVE N Specific [place] (test code = USPGR) <=1.005 1.005-1.030 A [...] Trace None Seen,Trace N [facility] CenterKrzgeu-UtkhqvTAWOPM2406-30-30 11:49:00 Test Item Value Reference Range Interpretation Comments Lipase (test code = LIPA) 91 U/L 73-393 [facility] CountykinAMYLASE, [id number] 11:49:00 Test Item Value Reference Range Interpretation Comments Amylase (test code = AMYL) 45 U/L 25-115 [facility] LAB CHEM [id number] 11:25:00 Test Item Value Reference Range Interpretation [...] code = CREA) 0.5 mg/dl 0.6-1.3 L [facility] LAB CBC WITH AUTO [id number] 11:23:00 Test Item Value Reference Range Interpretation [...] code = IG%) 0.6 % 0.0-0.4 [facility] PELVIS [id number] 07:55:25h/o complex right ovarian cystsProcedure: Pelvic ultrasound.CLINICAL [...] Velázquez MD 12/07/20187:49 AMDictated By:WILEY VELÁZQUEZDate: 12/07/2018 07:49[facility] [id number] 03:11:00 Test Item Value Reference Range Interpretation Comments Lipase (test code = LIPA) 136 U/L 73-393 [facility])2018-12-07 03:10:00 Test Item [...] (test code = 0.1 mg/dl 0.0-1.1 IBIL) [facility] LAB CHEM [id number] 02:41:00 Test Item Value Reference Range Interpretation [...] code = CREA) 0.5 mg/dl 0.6-1.3 L [facility] LAB CBC WITH AUTO [id number] 02:39:00 Test Item Value Reference Range Interpretation [...] = IG%) 0.5 % 0.0-0.4 H [facility] CountykinURINALYSIS WITH [id number] 02:37:00 Test Item Value Reference Range Interpretation Comments Color (test code = UCOLR) YELLOW Clarity (test code = UCLAR) CLEAR Glucose (test code = UGLUC) 500 NEGATIVE A Bilirubin (test code = UBILI) NEGATIVE NEGATIVE N Ketones (test code = UKET) TRACE NEGATIVE A Specific [place] (test code = USPGR) >=1.030 1.005-1.030 A [...] 2+ None Seen,Trace A [facility]-OlamidefstefanieCULTLISSY, [id number] 07:39:00CULTURE RIGHT ABDOMEN WOUND CARE DEPTSpecimen: AbdomenCollected: [...] - ICR (+/-) Negative -[facility]-LufkinXR CHEST AP/PA 1 [id number] 05:15:17Procedure: XR CHEST AP/PA 1 VIEWOrder Date: 09/30/2018 8:28 PMOrdering Provider: DIMAS Haskinsinical Indication: [id number]: Acute chest painComparison: May 13, 2017Findings:Cardiac size is magnified by technique.Pulmonary vasculature is normal.Mediastinal contour is normal.Aortic contour is normal.There is no consolidation or effusion.There is no evidence of active tuberculosis.There is no mass or pneumothorax.There is no skeletal abnormality.Impression: Negative AP portable chest x-ray.This final report was electronically signed by Dr Farzad Dewitt MD 10/01/20185:08 AMDictated By: FARZAD DEWITTDate: 10/01/2018 05:08 [facility]CT [facility]/PELVIS W/O [id number] 00:42:26NPO 4 hours. Do not withhold medsEXAM:CT [...] CDT.Dictated By: REHAN AZARDate: 10/01/2018 00:42[facility] OF [id number] 21:37:00 Test Item Value Reference Range Interpretation Comments Lipase (test code = LIPA) 82 U/L 73-393 [facility] (LIVER)2018-09-30 21:37:00 Test Item [...] (test code = 0.5 mg/dl 0.0-1.1 IBIL) [facility] LAB CHEM [id number] 21:10:00 Test Item Value Reference Range Interpretation [...] code = CREA) 0.5 mg/dl 0.6-1.3 L [facility] LAB CBC WITH AUTO [id number] 21:09:00 Test Item Value Reference Range Interpretation [...] code = IG%) 0.3 % 0.0-0.4 [facility]-[place] W/WO TUBE,CLX-[id number] 12:44:00 RUN DATE: 09/04/18 [facility] PAGE 1 RUN TIME: 1454 Specimen Inquiry RUN USER: INTERFACE -PATIENT: [facility]: [id number] LOC: KOURTNEY #: [id number] AGE/SX: 33/F ROOM: [facility] RE09/02/18REG DR:Elmer Flores : 87 BED: A DIS: 09/03/18 STATUS: DIS Coty TLOC: SPEC #: [id number] RECD: 09/02/18 STATUS: KWAME REQ #: [id number] MELISSA: 09/02/18- SUBM DR: Elmer Flores III ENTERED: 09/03/18 SP TYPE: OVARNOTNEO PIERCE DR: ORDERED: LEVEL IV CODES: [id number] - OVARY, NOS PROCEDURES: LEVEL IV (Incomplete) TISSUES: OVARY, NOS - RIGHT OVARIAN CYST CLINICAL HISTORY 33 year old, acute pelvic pain (wpd) FINAL DIAGNOSIS Right ovarian cyst, excision: - benign simple cyst of ovary Tissue code 1 CPT code(s): 12289 [facility] 09/04/18 GROSS DESCRIPTION ANATOMIC SOURCE OF [...] with multiple yellow-orange, centrally hemorrhagic corpora lutea. Foreign Law Consultant sections are submitted as A and B. telma/wpd 09/03/18 @ 1343 Signed Amaris Wharton MD 09/04/18 1244 END OF REPORT CBC W/AUTO [id number] 03:10:00 Test Item Value Reference Range Interpretation [...] NORMAL NORMAL code = PLTMR) CHEMISTRY 7 [id number] 14:15:00 Test Item Value Reference Range Interpretation [...] CA) 9.2 mg/dL 8.4-10.2 N CBC W/AUTO [id number] 13:42:00 Test Item Value Reference Range Interpretation [...] NORMAL NORMAL code = PLTMR) US INTRAVAGINAL [id number] 12:35:09Procedure: Pelvic ultrasound.CLINICAL INDICATION: Pelvic pain. Status [...] MD 09/01/201812:28 PMDictated By: WILEY VELÁZQUEZDate: 09/01/2018 12:28[facility] CBC WITH AUTO [id number] 11:31:00 Test Item Value Reference Range Interpretation [...] RS88 71 on 09/01/2018 11:31 ONLY AVAILABLE [address] [place] [address]-[place]kinCT ABDOMEN/PELVIS W/O [id number] 11:11:01MLP CProcedure: CT ABDOMEN/PELVIS W/O CONTRASTOrder Date: 09/01/2018 9:28 AMOrdering Provider: CHIN Guilleninical Indication: [id number]: Abdominal pain. Left lower quadrant painComparison: 12/24/2017TECHNIQUE:CT [...] Benitez MD 09/01/201811:04 AMDictatedBy: Maggie BENITEZte: 09/01/2018 11:04[facility] LAB CHEM [id number] 10:26:00 Test Item Value Reference Range Interpretation [...] CREA) 0.4 mg/dl 0.6-1.3 L ONLY AVAILABLE [address] [place] [address] LAB URINALYSIS WITHOUT [id number] 09:59:00 Test Item Value Reference Range Interpretation Comments Color (test code = UCOLR) Yellow Lt. Yellow A Clarity (test code = UCLAR) Clear Glucose (test code = UGLUC) NEGATIVE Negative A Bilirubin (test code = UBILI) NEGATIVE Negative A Ketones (test code = UKET) NEGATIVE Negative A Specific [place] (test code = USPGR) 1.015 1.005-1.030 A Blood (test code = UBLD) NEGATIVE Negative A PH (test code = UPH) 7.0 4.5-8.0 A Protein (test code = UPROT) NEGATIVE Negative A Urobilinogen (test code = U UROB) 0.2 >0.2 N Nitrite (test code = UNITR) NEGATIVE Negative A Leukocyte Esterase (test code = NEGATIVE Negative A ULEUK) ONLY AVAILABLE [address] [place], [place] [address]kinUS INTRAVAGINAL PELVIS 2018-05-13 13:26:23Procedure: Pelvic ultrasound.CLINICAL INDICATION: [...] PMDictated By: WILEY VELÁZQUEZDate: 05/13/2018 13:20[facility] CBC WITH AUTO [id number] 12:22:00 Test Item Value Reference Range Interpretation [...] (test code = 0.2 % 0.0-0.4 IG%) [facility] LAB CBC WITH AUTO [id number] 11:54:00 Test Item Value Reference Range Interpretation [...] 0.5 % 0.0-0.4 H IG%) ONLY AVAILABLE [address] [place] [address] LAB URINALYSIS WITHOUT [id number] 11:25:00 Test Item Value Reference Range Interpretation Comments Color (test code = UCOLR) Yellow Lt. Yellow A Clarity (test code = UCLAR) Clear Glucose (test code = UGLUC) NEGATIVE Negative A Bilirubin (test code = UBILI) NEGATIVE Negative A Ketones (test code = UKET) NEGATIVE Negative A Specific [place] (test code = USPGR) 1.020 1.005-1.030 A Blood (test code = UBLD) NEGATIVE Negative A PH (test code = UPH) 7.0 4.5-8.0 A Protein (test code = UPROT) NEGATIVE Negative A Urobilinogen (test code = U UROB) 0.2 >0.2 N Nitrite (test code = UNITR) NEGATIVE Negative A Leukocyte Esterase (test code = NEGATIVE Negative A ULEUK) ONLY AVAILABLE [address] [place] [address] LAB , URINE 2018-05-13 11:25:00 Test Item Value Reference Range Interpretation Comments (Urine) (test code = Negative PREGU) ONLY AVAILABLE [address] [place] [address] LAB CHEM [id number] 11:23:00 Test Item Value Reference Range Interpretation [...] CREA) 0.5 mg/dl 0.6-1.3 L ONLY AVAILABLE -12[facility] INTRAV[facility]EL[facility] 2017-12-24 12:50:53Procedure: Pelvic ultrasound.CLINICAL INDICATION: [...] PMDictated By: WILEY VELÁZQUEZDate: 12/24/2017 12:50[facility] OF TERRALURINALYSIS WITH [id number] 10:22:00 Test Item Value Reference Range Interpretation Comments Color (test code = UCOLR) Yellow Clarity (test code = UCLAR) Clear Glucose (test code = UGLUC) NEGATIVE NEGATIVE N Bilirubin (test code = UBILI) NEGATIVE NEGATIVE N Ketones (test code = UKET) NEGATIVE NEGATIVE N Specific [place] (test code = USPGR) 1.025 1.005-1.030 A [...] code = UBACT) Trace None Seen,Trace N [facility]LufkinLIPASE, [id number] 10:05:00 Test Item Value Reference Range Interpretation Comments Lipase (test code = LIPA) 40 U/L 8-223 [facility]-[id number] 10:05:00 Test Item Value Reference Range Interpretation [...] ( 4 - SerumAlbumin)] EGFR if >60 Mexican (test code mL/min/1.73m\\ = EGFRAA) S\\2 EGFR if Non- >60 Estimate d Glomerular Mexican (test code mL/min/1.73m\\ Filtrat ion Rate (eGFR) [...] c hronic kidney failure. [facility]-[place]kinCT ABD/ PELVIS W/O CON (RENAL [...] MD 12/24/20179:32 AMDictated By: WILEY VELÁZQUEZDate: 12/24/2017 09:38[facility] [place] WITH AUTO DIFF 2017-12-24 09:26:00 Test Item [...] = 0.6 % 0.0-0.4 H IG%) AUTO [facility]-LufkinCT [...] on 3:19 AMCDT.Dictated By: MARVIN DOBBSDate: 06/21/2017 03:20[facility] WITH [id number] 03:20:00 Test Item Value Reference Range Interpretation Comments Color (test code = UCOLR) YELLOW Clarity (test code = UCLAR) CLEAR Glucose (test code = UGLUC) NEGATIVE NEGATIVE N Bilirubin (test code = UBILI) NEGATIVE NEGATIVE N Ketones (test code = UKET) NEGATIVE NEGATIVE N Specific [place] (test code = 1.020 1.005-1.030 A USPGR) [...] = UBACT) None Seen None Seen,Trace N [address]-IqbqtqGFZ5017-05-14 03:07:00 Test Item Value Reference Range Interpretation [...] ( 4 - SerumAlbumin)] EGFR if >60 Mexican (test code mL/min/1.73m\\ = EGFRAA) S\\2 EGFR if Non- >60 Estimate d Glomerular Mexican (test code mL/min/1.73m\\ Filtrat ion Rate (eGFR) [...] management of c hronic kidney failure. er [address] [place] [address]-[place]ufkinLIPASE, [id number] 03:07:00 Test Item Value Reference Range Interpretation Comments Lipase (test code = LIPA) 61 U/L 8-[address] [place] [address]-fkinCBC WITH AUTO [id number] 03:05:00 Test Item Value Reference Range Interpretation [...] code = 0.4 % 0.0-0.4 IG%) er [address] [place] [address]-[place]XR CHEST 2 PA [id number] 19:56:04 Procedure: XR CHEST 2 PA LATERALExam date: 05/13/2017 3:53 PMOrdering Provider: DR ASA BLOOMClinical Indication: fatigue, Chest painComparison: March 15, 2016Findings:Cardiomediastinal silhouette is within normal limits.The lungs are clear.No pleural effusion or pneumothorax. Osseous structures are nonacute.No evidence of active tuberculosis.Impression:No acute cardiopulmonary process.This final report was electronically signed by Dr Wiley Velázquez MD 05/13/20177:49 PMDictated By: WILEY VELÁZQUEZDate: 05/13/2017 19:55[id number] 16:53:00 Test Item Value Reference Range Interpretation [...] ( 4 - SerumAlbumin)] EGFR if >60 Mexican (test code mL/min/1.73m\\ = EGFRAA) S\\2 EGFR if Non- >60 Estimate d Glomerular Mexican (test code mL/min/1.73m\\ Filtrat ion Rate (eGFR) [...] c hronic kidney failure. [facility] ([facility] ONLY)2017-05-13 16:32:00 Test Item Value Reference [...] ON THE RE PORT. [facility]-[place]ufkinURINALYSIS WITH [id number] 18:25:00 Test Item Value Reference Range Interpretation Comments Color (test code = UCOLR) YELLOW Clarity (test code = UCLAR) CLEAR Glucose (test code = UGLUC) NEGATIVE NEGATIVE N Bilirubin (test code = UBILI) NEGATIVE NEGATIVE N Ketones (test code = UKET) NEGATIVE NEGATIVE N Specific [place] (test code = 1.025 1.005-1.030 A USPGR) [...] UR MISC) None Seen None Seen N [facility] ([facility]IVER)2016-10-09 18:21:00 Test Item Value [...] 0.1 mg/dl 0.0-1.1 IBIL) [facility]-[id number] 18:21:00 Test Item Value Reference Range Interpretation [...] mg/dl 8.4-10.2 = CALC) EGFR if >60 Mexican (test code mL/min/1.73m\\ = EGFRAA) S\\2 EGFR if Non- >60 Estimate d Glomerular Mexican (test code mL/min/1.73m\\ Filtrat ion Rate (eGFR) [...] c hronic kidney failure. [facility] WITH AUTO [id number] 18:04:00 Test Item Value Reference Range Interpretation [...] Auto (test code = 0 NRBC_AUTO) AUTO [facility]
[2022-05-06] MEDS ORDERED: PROMETHAZINE INJ 25 MG/ML AMP ONE (10:18)
[2022-05-06] MEDS ORDERED: NA CHLORIDE 0.9% 1,000 ML ONE (10:19)
[2022-05-06] MEDS ORDERED: KETAMINE HCL 500 MG/5 ML VIAL ONE (10:19)
[2022-05-06] MEDS ORDERED: MAGNESIUM SULFATE 1 gm IVPB 1 GM/100 ML BAG IV ONE (10:19)
[2022-05-06 10:36] LABS: Absolute Lymphocytes (CBC) 2.1 K/uL (0.7-4.9); Hematocrit 37.1 % (36.0-45.0); MCV 87.2 fL (80-100); RBC Red Blood Cell Count 4.25 M/uL (3.86-4.86)
--- NOTE | 2022-05-06 10:45 | RAD REPORT ---
EXAM DESCRIPTION: CT - Stone Protocol - 05/06/2022 10:34 am CLINICAL HISTORY: Flank pain. stone COMPARISON: Abdomen Pelvis W Contrast dated 04/12/2022 TECHNIQUE: Axial images were obtained without oral or IV contrast. Lack of contrast limits solid org an and vascular assessment. The [id number] spans the entirety of the system partially obscuring uppermost abdomen and lung bases. Coronal reformatted images were obtained and reviewed. All CT scans are performed using dose optimization technique as appropriate and may include automated exposure control or mA/KV adjustment according to patient size. FINDINGS: The lower lung rhodes are clear. Cholecystectomy. Postsurgical changes about the stomach. Imaged portions of the liver and spleen show no suspicious findings on non-contrast imaging. The panc reas and adrenal glands are normal. No pathologic lymphadenopathy in the abdomen or pelvis. 3 mm stone right UVJ with mild right hydronephrosis. Additional bilateral punctate nephrolithiasis. No bowel obstruction, free air, free fluid or abscess. Nonvisualized appendix. No significant bony abnormality. IMPRESSION: 3 mm right UVJ calculus is present with mild right hydronephrosis. Additional bilateral nephrolithiasis.
[2022-05-06 10:55] LABS: Albumin 3.4 g/dL (3.4-5.0); Bilirubin Total 0.4 mg/dL (0.2-1.0); Potassium 3.7 mmol/L (3.5-5.1)
[2022-05-06] MEDS ORDERED: MEPERIDINE HCL 50 MG/ML IV SCH (11:00)
[2022-05-06] MEDS ORDERED: LIDOCAINE VISCOUS 2% SOLN 15 ML UDC ONE (11:08)
[2022-05-06] MEDS ORDERED: DIAZEPAM 10 MG/2 ML INJ SYRINGE ONE (11:21)
[2022-05-06] MEDS ORDERED: DICYCLOMINE HCL 10 MG CAP ONE (11:21)
--- NOTE | 2022-05-06 12:02 | ER ---
Nurse's Notes [facility] Name: Hong Pace Age: 36 yrs Sex: Female : 1985 Arrival Date: 05/06/2022 Time: 09:53 Bed 5 Private MD: Diagnosis: Hydronephrosis with renal and ureteral calculous obstruction Presentation: 05/06 10:01 Chief complaint: Patient states: R low back pain radiating to R flank and RLQ, N/V and ph inability to urinate. Symptoms began at approx 0600 today, hx of kidney stones. Coronavirus screen: Vaccine status: Patient reports being unvaccinated. Ebola Screen: No symptoms or risks identified at this time. Initial Sepsis Screen: Does the patient meet any 2 criteria? No. Patient's initial sepsis screen is negative. Does the patient have a suspected source of infection? No. Patient's initial sepsis screen is negative. Risk Assessment: Do you want to hurt yourself or someone else? Patient reports no desire to harm self or others. Onset of symptoms was May 06, 2022. 10:01 Method Of Arrival: Ambulatory ph 10:01 Acuity: [place] 3 ph Triage Assessment: 10:04 General: Appears in no apparent distress. uncomfortable, Behavior is calm, cooperative, ph appropriate for age. Pain: Complains of pain in right low back Pain radiates to posterior aspect of right lateral abdomen, anterior aspect of right lateral abdomen and right lower quadrant. Neuro: Level of Consciousness is awake, alert, obeys commands, Oriented to person, place, time, situation. Cardiovascular: Capillary refill < 3 seconds Patient's skin is warm and dry. Respiratory: Airway is patent Respiratory effort is even, unlabored. GI: Reports nausea, vomiting. : Reports inability to void, pain in right flank(s), lower quadrant(s) in lower back. Derm: Skin is pink, warm \T\ dry. Musculoskeletal: Circulation, motion, and sensation intact. Range of motion: intact in all extremities. 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 - Social history:: Smoking status: Patient reports the use of cigarette tobacco products, denies chronic smoking, but will smoke occasionally. Screenin:05 Abuse screen: Denies threats or abuse. Denies injuries from another. Nutritional ph screening: No deficits noted. Tuberculosis screening: No symptoms or risk factors identified. Fall Risk None identified. Assessment: 11:33 Reassessment: Patient appears in no apparent distress at this time. Patient and/or ph family updated on plan of care and expected duration. Pain level reassessed. Patient is alert, oriented x 3, equal unlabored respirations, skin warm/dry/pink. 16 Fr Lozoya catheter inserted w/ 10cc balloon inflated, no urine out put noted, bladder scanner shows approx 120 mL in bladder, ERP notified and fluid bolus ordered. Pt continues to c/o pain, requesting more medication, states that nausea has improved. Vital Signs: 10:01 BP 133 / 98; Pulse 99; Resp 18; Temp 97.9; Pulse Ox 99% on R/A; Weight 104.33 kg; ph Height 5 ft. 4 in. (162.56 cm); 11:35 BP 120 / 81; Pulse 70; Resp 18; Pulse Ox 97% on R/A; ph 10:01 Body Mass Index 39.48 (104.33 kg, 162.56 cm) ph ED Course: 09:53 Patient arrived in ED. rg4 10:02 Christal Dick FNP-C is PHCP. snw 10:03 Rosalino Tucker DO is Attending Physician. snw 10:03 Triage completed. ph 10:04 Arm band placed on Patient placed in an exam room. ph 10:06 Patient has correct armband on for positive identification. Placed in gown. Bed in low ph position. Call light in reach. Pulse ox on. NIBP on. Door closed. Noise minimized. Warm blanket given. 10:14 Marie Mobley RN is Primary Nurse. ph 10:15 Inserted saline lock: 22 gauge in right antecubital area, using aseptic technique. ph Blood collected. 10:[address] In Process Unspecified. EDMS 11:17 Lozoya cath inserted, using sterile technique, 16 Fr., by mo, balloon inflated, to ph gravity drainage, Patient tolerated well. 13:03 No provider procedures requiring assistance completed. IV discontinued, intact, ph bleeding controlled, No redness/swelling at site. Pressure dressing applied. Administered Medications: 10:27 Drug: Phenergan (promethazine) 25 mg Route: IM; Site: right deltoid; ph 12:09 Follow up: Response: No adverse reaction; Nausea is decreased ph 10:27 Drug: Ketalar (ketamine) 10 mg Route: IVP; Site: right antecubital; ph 11:00 Follow up: Response: No adverse reaction ph 10:50 Drug: NS 0.9% 1000 ml Route: IV; Rate: 125 ml/hr; Site: right antecubital; ph 13:05 Follow up: Response: No adverse reaction; IV Status: Completed infusion; IV Intake: ph 1000ml 10:50 Drug: Demerol (meperidine) 50 mg Route: IVP; Site: right antecubital; ph 11:15 Follow up: Response: No adverse reaction; Pain is unchanged, physician notified; RASS: ph Alert and Calm (0) 10:52 Drug: Magnesium Sulfate 1 grams Route: IVPB; Infused Over: 1 hrs; Site: right ph antecubital; 12:00 Follow up: Response: No adverse reaction; IV Status: Completed infusion ph 11:29 Drug: Valium (diazepam) 5 mg Route: IVP; Site: right antecubital; ph 12:08 Follow up: Response: No adverse reaction; RASS: Alert and Calm (0) ph 11:29 Drug: Dicyclomine 10 mg Route: PO; ph 12:08 Follow up: Response: No adverse reaction ph 12:07 Drug: Dilaudid (HYDROmorphone) 1 mg Route: IVP; Site: right antecubital; ph 12:15 Follow up: Response: No adverse reaction; Pain is decreased; RASS: Alert and Calm (0) ph 12:07 Drug: Flomax (tamsulosin) 0.4 mg Route: PO; ph 12:08 Follow up: Response: No adverse reaction ph 12:07 Drug: Augmentin (Amoxicillin-Clavulanate) 875 mg Route: PO; ph 12:08 Follow up: Response: No adverse reaction ph Medication: 10:05 VIS not applicable for this client. ph Intake: 13:05 IV: 1000ml; Total: 1000ml. ph Outcome: 12:01 Discharge ordered by . tristin 13:04 Discharged to home ambulatory. ph 13:04 Condition: good 13:04 Discharge instructions given to patient, Instructed on discharge instructions, follow up and referral plans. medication usage, Demonstrated understanding of instructions, follow-up care, medications, Prescriptions given X 3. 13:08 Patient left the ED. ph Signatures: Dispatcher [employer] EDMS Christal Dick, BOOKKEEPER RECEPTIONIST-C BOOKKEEPER RECEPTIONIST-Rodrickw Marie Mobley RN RN ph Tiffanie Moreno rg4 Corrections: (The following items were deleted from the chart) 12:08 12:07 Response: No adverse reaction ph ph
--- NOTE | 2022-05-06 12:02 | EDPHYS ---
Physician Documentation [facility] Name: Hong Pace Age: 36 yrs Sex: Female : 1985 Arrival Date: 05/06/2022 Time: 09:53 Bed 5 Private MD: ED Physician Rosalino Tucker HPI: 05/06 11:02 This 36 yrs old Female presents to ER via Ambulatory with complaints of Possible Kidney snw Stone. 11:02 The patient complains of pain in the low back area and right mid back. The pain snw radiates to the anterior aspect of right lateral abdomen. Onset: The symptoms/episode began/occurred suddenly, last night. Modifying factors: The symptoms are alleviated by nothing. the symptoms are aggravated by in ability to void. Associated signs and symptoms: Pertinent positives: nausea. Severity of pain: At its worst the pain was moderate in the emergency department the pain is unchanged. The patient has experienced similar episodes in the past, multiple times. The patient has not recently seen a physician. 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 - Social history:: Smoking status: Patient reports the use of cigarette tobacco products, denies chronic smoking, but will smoke occasionally. ROS: 11:00 Constitutional: Negative for fever, chills, and weight loss, Eyes: Negative for injury, snw pain, redness, and discharge, ENT: Negative for injury, pain, and discharge, Neck: Negative for injury, pain, and swelling, Cardiovascular: Negative for chest pain, palpitations, and edema, Respiratory: Negative for shortness of breath, cough, wheezing, and pleuritic chest pain, : Negative for injury, bleeding, discharge, and swelling, unable to void since last pm MS/Extremity: Negative for injury and deformity, Skin: Negative for injury, rash, and discoloration, Neuro: Negative for headache, weakness, numbness, tingling, and seizure. 11:00 Abdomen/GI: Positive for abdominal pain, nausea. 11:00 Back: Positive for flank pain, on the right. Exam: 10:58 Head/Face: Normocephalic, atraumatic. Eyes: Pupils equal round and reactive to light, snw extra-ocular motions intact. Lids and lashes normal. Conjunctiva and sclera are non-icteric and not injected. Cornea within normal limits. Periorbital areas with no swelling, redness, or edema. ENT: Nares patent. No nasal discharge, no septal abnormalities noted. Tympanic membranes are normal and external auditory canals are clear. Oropharynx with no redness, swelling, or masses, exudates, or evidence of obstruction, uvula midline. Mucous membranes moist. Neck: Trachea midline, no thyromegaly or masses palpated, and no cervical lymphadenopathy. Supple, full range of motion without nuchal rigidity, or vertebral point tenderness. No Meningismus. Chest/axilla: Normal chest wall appearance and motion. Nontender with no deformity. No lesions are appreciated. Cardiovascular: Regular rate and rhythm with a normal S1 and S2. No gallops, murmurs, or rubs. Normal PMI, no JVD. No pulse deficits. Respiratory: Lungs have equal breath sounds bilaterally, clear to auscultation and percussion. No rales, rhonchi or wheezes noted. No increased work of breathing, no retractions or nasal flaring. 10:58 Skin: Warm, dry with normal turgor. Normal color with no rashes, no lesions, and no evidence of cellulitis. MS/ Extremity: Pulses equal, no cyanosis. Neurovascular intact. Full, normal range of motion. Neuro: Awake and alert, GCS 15, oriented to person, place, time, and situation. Cranial nerves II-XII grossly intact. Motor strength 5/5 in all extremities. Sensory grossly intact. Cerebellar exam normal. Normal gait. Psych: Awake, alert, with orientation to person, place and time. Behavior, mood, and affect are within normal limits. 10:58 Constitutional: The patient appears alert, awake, anxious, restless, uncomfortable. 10:58 Abdomen/GI: Inspection: abdomen appears normal, Bowel sounds: normal, Palpation: mild abdominal tenderness, in the posterior aspect of right lateral abdomen and right lower quadrant. 10:58 Back: pain, that is moderate, of the right mid back, ROM is normal. Vital Signs: 10:01 BP 133 / 98; Pulse 99; Resp 18; Temp 97.9; Pulse Ox 99% on R/A; Weight 104.33 kg; ph Height 5 ft. 4 in. (162.56 cm); 11:35 BP 120 / 81; Pulse 70; Resp 18; Pulse Ox 97% on R/A; ph 10:01 Body Mass Index 39.48 (104.33 kg, 162.56 cm) ph MDM: 10:03 Patient medically screened. snw 11:18 Data reviewed: vital signs, nurses notes. Data interpreted: Pulse oximetry: on room air snw is 99 %. Interpretation: normal. Counseling: I had a detailed discussion with the patient and/or guardian regarding: the historical points, exam findings, and any diagnostic results supporting the discharge/admit diagnosis, the presence of at least one elevated blood pressure reading (>120/80) during this emergency department visit, lab results, radiology results, the need for outpatient follow up. 12:04 Response to treatment: the patient's symptoms have mildly improved after treatment. snw Special discussion: Based on the patient's Hx, exam, and Dx evaluation, there is no indication for emergent surgery or inpatient Tx. It is understood by the patient/guardian that if the Sx's persist or worsen they need to return immediately for re-evaluation. I have referred the patient to see his PCP for further evaluation of high blood pressure. Based on the history and exam findings, there is no indication for further emergent testing or inpatient evaluation. I discussed with the patient/guardian the need to see the primary care provider for further evaluation of the symptoms. I discussed with the patient/guardian the need to see the urologist for further evaluation of the symptoms. 05/06 10:11 Order name: CBC with Diff; Complete Time: 10:46 snw 05/06 10:11 Order name: CMP; Complete Time: 10:57 snw 05/06 10:10 Order name: Stone Protocol CT; Complete Time: 10:46 snw 05/06 10:11 Order name: Blood Culture Adult (2) snw 05/06 10:11 Order name: Lozoya: post CT; Complete Time: 11:29 snw Administered Medications: 10:27 Drug: Phenergan (promethazine) 25 mg Route: IM; Site: right deltoid; ph 12:09 Follow up: Response: No adverse reaction; Nausea is decreased ph 10:27 Drug: Ketalar (ketamine) 10 mg Route: IVP; Site: right antecubital; ph 11:00 Follow up: Response: No adverse reaction ph 10:50 Drug: NS 0.9% 1000 ml Route: IV; Rate: 125 ml/hr; Site: right antecubital; ph 13:05 Follow up: Response: No adverse reaction; IV Status: Completed infusion; IV Intake: ph 1000ml 10:50 Drug: Demerol (meperidine) 50 mg Route: IVP; Site: right antecubital; ph 11:15 Follow up: Response: No adverse reaction; Pain is unchanged, physician notified; RASS: ph Alert and Calm (0) 10:52 Drug: Magnesium Sulfate 1 grams Route: IVPB; Infused Over: 1 hrs; Site: right ph antecubital; 12:00 Follow up: Response: No adverse reaction; IV Status: Completed infusion ph 11:29 Drug: Valium (diazepam) 5 mg Route: IVP; Site: right antecubital; ph 12:08 Follow up: Response: No adverse reaction; RASS: Alert and Calm (0) ph 11:29 Drug: Dicyclomine 10 mg Route: PO; ph 12:08 Follow up: Response: No adverse reaction ph 12:07 Drug: Dilaudid (HYDROmorphone) 1 mg Route: IVP; Site: right antecubital; ph 12:15 Follow up: Response: No adverse reaction; Pain is decreased; RASS: Alert and Calm (0) ph 12:07 Drug: Flomax (tamsulosin) 0.4 mg Route: PO; ph 12:08 Follow up: Response: No adverse reaction ph 12:07 Drug: Augmentin (Amoxicillin-Clavulanate) 875 mg Route: PO; ph 12:08 Follow up: Response: No adverse reaction ph Disposition: 17:11 Co-signature as Attending Physician, Rosalino CUENCA was immediately available onsite ms3 in the emergency department for consultation in the care of the patient. Disposition Summary: 05/06/22 12:01 Discharge Ordered Location: Home snw Condition: Stable snw Diagnosis - Hydronephrosis with renal and ureteral calculous obstruction snw Followup: snw - With: Emergency Department - When: As needed - Reason: Worsening of condition Followup: snw - With: Private Physician - When: 2 - 3 days - Reason: Recheck today's complaints, Continuance of care, Re-evaluation by your physician Discharge Instructions: - Discharge Summary Sheet snw - Renal Colic snw - Hydronephrosis snw - Dietary Guidelines to Help Prevent Kidney Stones snw - Rehydration, Adult snw Forms: - Medication Reconciliation Form snw - Thank You Letter snw - Antibiotic Education snw - Prescription Opioid Use snw Prescriptions: - Augmentin 875-125 mg Oral Tablet - take 1 tablet by ORAL route every 12 hours for 10 days; 20 tablet; Refills: 0, snw Product Selection Permitted - promethazine 25 mg Oral Tablet - take 1 tablet by ORAL route every 6 hours As needed; 20 tablet; Refills: 0, snw Product Selection Permitted - Flomax 0.4 mg Oral capsule - take 1 capsule by ORAL route once daily 1/2 hour following the same meal each ms3 day; 20 capsule; Refills: 0, Product Selection Permitted Signatures: Dispatcher [employer] Christal Arriola, SLITTER OPERATOR-C SLITTER OPERATOR-Csnw Marie Mobley RN RN Rosalino Sterling DO DO ms3
[2022-05-06] MEDS ORDERED: HYDROMORPHONE HCL 1 MG/ML INJ ONE (12:03)
[2022-05-06] MEDS ORDERED: AMOX/K CLAV 875 MG TAB ONE (12:03)
[2022-05-06] MEDS ORDERED: TAMSULOSIN 0.4 MG SR CAP ONE (12:04)
[2022-05-06 13:48] VITALS: TEMP 97.9
[2022-05-06 13:53] VITALS: BP 120/81; O2SAT 97
== END 2022-05-06 13:08 | disposition home or self-care (01) ==
LOC: ER 09:50
DX: N13.2 Hydronephrosis with renal and ureteral calculous obstruction (principal); F17.210 Nicotine dependence, cigarettes, uncomplicated; Z88.5 Allergy status to narcotic agent; Z88.6 Allergy status to analgesic agent
CPT/HCPCS: 36415; 51702; 74176; 76377; 80053; 85025; 87040; 96361; 96365; 96372; 96375; 99284; J1170; J2175; J2550; J3360; J3475; J7030

== ENCOUNTER 2022-05-16 23:48 | Emergency (ER) | payer SELFPAY ==
--- OUTSIDE RECORDS SUMMARY | 2022-05-16 23:51 | XMS REPORT | Clinical Summary ---
:1985 Author Organization [facility] MD Bah [facility] Address [address] [place] [address] Care Team Providers Name Role Phone Keila [...] malignant melanoma of skin 10/26/2021 Travel after 05/16/2021 Immunizations Name Administration Dates Next Due Influenza [...] OVARIAN CYST SURGERY 08/29/2018 - Right 09/28/2018 MD EXC SKIN MALIG 0.6-1 CM 09/23/2018 Abdomen/Right [...] Date Type Specialty Care Team Description 10/25/2022 Follow-Up Dermatology Lisbeth Shannon M D [address] [place], [place] [address] (Wo rk) Health Maintenance Due Date Last Done Comments COVID-19 Vaccination (#1) 01/11/1987 Results Not on fileafter 05/16/2021 Advance Directives Code Status Date Activated Date Inactivated Comments Full Code 10/04/2018 8:21 PM 10/08/2018 5:55 PM Code Status Date Activated Date Inactivated Comments Full Code 09/23/2018 1:48 PM 09/23/2018 6:55 PM Care Teams Aromatherapist Relationship Specialty Start Date End Date Keila Valentine MD PCP - General Surgical Oncology 08/26/18 [address] [place] [address] Navi Arango FNP PCP - External Primary Family Practice 09/08/18 [address] [place] [address]
--- OUTSIDE RECORDS SUMMARY | 2022-05-17 00:03 | XMS REPORT | Continuity of Care Document ---
:1985 Author Organization [facility] t Address [address] [place] [address] Care Team Providers Name Role Phone Keila Valentine MD Primary Care Physician Josué Arango Attending Clinician Unavailable SANTINO_Ingrid_Truman_ Attending Clinician Unavailable RIDGE PAGAN Attending Clinician Unavailable Ridge Pagan MD Attending Clinician Truman Quintero Attending Clinician Unavailable TRICE HARRIS Attending Clinician Unavailable Trice Strickland Attending Clinician Green CUPOLA MAN, Ameena Attending Clinician AMEENA CASTANEDA Attending Clinician Unavailable Praveen Blas MD Attending Clinician EKTA BERMUDEZ Attending Clinician Unavailable PATRICK CARRANZA Attending Clinician Unavailable Olga Clements Attending Clinician Unavailable LEANNE HANNAH S Attending Clinician Unavailable Devora GARCIA, Leanne S Attending Clinician SHARA GRIMM Attending Clinician Unavailable Andie LEGER, Eve Whiting Attending Clinician Unavailable Patrick Schumacher Attending Clinician Doctor Unassigned, [place] William Attending Clinician Unavailable SETH DYKES Attending Clinician Unavailable REHAN COTTON Attending Clinician Unavailable Adriana LEGER, Viktoriya Charlton Attending Clinician JUAN MENSAH Attending Clinician Unavailable [...] Clinician Unavailable QUINTIN BRITO Attending Clinician Unavailable SANTINO_Ingrid_Truman_ Admitting Clinician Unavailable RIDGE PAGAN Admitting Clinician Unavailable Truman Quintero Admitting Clinician Unavailable TRICE HARRIS Admitting Clinician Unavailable EKTA BERMUDEZ Admitting Clinician Unavailable Physician, No Primary or Family Admitting Clinician UnavailLEANNE Chino Admitting Clinician Unavailable SETH DYKES Admitting Clinician Unavailable REHAN COTTON Admitting Clinician Unavailable JUAN MENSAH Admitting Clinician Unavailable MR SKYE MURILLO Admitting Clinician Unavailable DO WYATT SOTOMAYOR Admitting [...] Number Effective Date Expiration Date Abhinav durbin [id number] 1958 00:00:00 MEDI-SHARE C1 [id number] [facility] MEDI-SHARE C1 [id number] [facility] MEDI-SHARE C1 [id number] [facility] [id number] 1958 00:00:00 MEDI-SHARE C1 [id number] [facility] PHCS GENERIC [id number] 2018 00:00:00 Problems Condition Condition Condition Status [...] l (LUF/LI V/SA) Chronic Chronic Problem Active 2020-[address] abdominal abdominal 6-10 [facility] [...] Active Overview: Univers for other for other 3- Formattin i ty of preprocedu preprocedu 00:00: g of this [place] ral ral 00 note MD frandy wise might be Gian payton different n from [...] V/SA) Flank pain Flank pain Problem Active 2016-[address] [facility]14 [facility] 00[facility] [...] l (LUF/LI V/SA) 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[facility] 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 Memoria l (LUF/LI V/SA) Pain in Pain in Problem Active [facility] St pelvis pelvis [facility] (LUF/LI V/SA) Anxiety Anxiety Problem Active [facility] (LUF/LI V/SA) [id number] Endometrio Problem Active [facility] No known No known Disease Unive rs active active ity of problems problems [facility] Allergies, Adverse Reactions, Alerts Allergy Allergy Status Severity Reaction(s) Onset Inactive Treating Comm ents Source Name Type Date Date Clinician [place] DA Active [place] rash 2021-07 [facility] [place] [facility]: [facility] [place] DA Active U rash [facility] 2[facility]07 [place] 00:[facility]: Orthope 00 dic H[facility] l KETOROLA DRUG Active Low Rash 2020-07 Univers C INGREDI 2- ity of 00:00: [place] 00 Medical Branch Ketorola Propensi Active Rash 2020-07 Univer s c ty to 2-22 ity of adverse 00:00: [place] reaction 00 [facility] Branch ket[place] DA Active [place] [facility] 9[facility]10 [facility] [place] ket[place]ola DA Active U [facility] c 03-24 [place] 00:[facility]: d 00 [facility] [place] DA Active U rash [facility] c 03-24 [place] 00:[facility]: d 00 [facility] [place] Drug Active Itching Univers c Allergy 07-19 ity of 00:00: [place] 00 MD [facility] 0 Drug Active Unknown [facility] Family History Family Member Diagnosis Comments Start Date Stop Date Source Natural mother -Breast cancer [facility] [place] MD Disla Cance r [place] Social History Social Habit Start Date Stop Date Quantity Comments Source History of Tobacco [facility] - Use [facility] ASSERTION [facility] Exposure to 2022-04-27 2022-05-07 Not sure [facility] SARS-CoV-2 (event) 00:00:00 07:55:00 [facility] Tobacco use and 2021-08-29 2021-08-29 Smokeless Universit y of exposure 00:00:00 00:00:00 tobacco non-user [facility] Alcohol intake 2018-10-04 2018-10-04 Current University 00:00:00 00:00:00 non-drinker of [place] MD Lila [facility] (finding) Cigarettes smoked 2018-09-04 2018-09-04 Univers ity of current (pack per 00:00:00 00:00:00 [facility] Chin ) - Reported Cancer Ce nter Cigarette 2018-09-04 2018-09-04 University of pack-years 00:00:00 00:00:00 [place] [facility] Sex Assigned At [birth year] [facility] 00:[facility]00 [facility] Smoking Status Start Date Stop Date Source Tobacco smoking [facility] consumption unknown Never smoked tobacco [facility] [place] [facility] Former Smoker 2020-05-03 00:00:00 2020-05-03 [facility] Medications Ordered Filled Start Stop Current Ordering Indication Dosage Frequency Signature Comments Components Source Medication Medication Date Date Medication? Clinician (SIG) Name Name ondansetron 2021-07 No 4mg 4 mg, Slow Univers (ZOFRAN 07-07 IV Push, ity of (PF)) 15:45: 15:35 ONCE, 1 [place] injection 4 00 :00 dose, On Medi felipa mg Mon Branch 05/07/22 at 0945, JOSE FENTanyl PF 2021-07 No 50ug 50 mcg, Un spring (SUBLIMAZE 07-07 Slow IV ity o f (PF)) 15:30: 15:32 Push, [place] injection 00 :00 ONCE, 1 Medical 50 mcg dose, On Branch Sat05/07/22 at 0930, STAT acetaminoph 2021-07 No 1000mg 1,000 mg, Univers en ADULT 07-07 IV ity of (OFIRMEV) 15:15: 14:45 [place] :00 at 400 Medical 1,000 mg mL/hr Branch Administer over 15 Minutes, ONCE NOW, 1 dose, On Sat05/07/22 at 0915, Routine
Indicatio n: Perioperat kieran Patient tamsulosin 2021-07 Yes [id number] .4mg Take 1 U nivers 0.4 mg 24 07-07 capsule by ity of hr capsule 00:00: mouth at Jacques as 00 bedtime. Medical Branch HYDROcodone 2021-07- Yes [id number] 1{tbl} Take 1 U nivers -acetaminop 07-07 tablet by it y of hen 5-325 00:00: 05:59 mouth [place] mg tablet 00 :00 every 4 Medical (four) Branch hours as needed for Pain (scale 4-6) for up to 7 days. Indication s: acute pain metoclopram No 10mg 10 mg, Uni vers [...] Medical Infusion, Branch ONCE, 1 dose, On Sat02/19/22 at 1030, JOSE morpHINE (4 2021- No [...] Branch 02/19/22 at 0930, JOSE methylPREDN Yes [id number] Take by [facility] ISolone 11-29 mouth ity of (MEDROL, 00:00: SEE-INSTRU [place] as TE,) 4 mg 00 CTIONS. Medica l tablets follow Branch package directions methylPREDN 0 Yes [id number] Take by [facility] ISolone 11-29 mouth ity of (MEDROL, 00:00: SEE-INSTRU [place] as TE,) 4 mg 00 CTIONS. Medica l tablets follow Branch package directions methylPREDN 0 Yes [id number] Take by [facility] ISolone 11-29 mouth ity of (MEDROL, 00:00: SEE-INSTRU [place] as TE,) 4 mg 00 CTIONS. Medica l tablets follow Branch package directions amoxicillin 2021- No [id number] 1{tbl} Take 1 Univers -clavulanat 11-29 tablet by it y of e [id number] 00:00: 04:59 mouth 2 [place] mg per 00 :00 (two) Medical tablet times Branch daily for 7 days. codeine-gua 2021- No [id number] 5mL Take 5 mL [facility] ifenesin 11-29 by mouth ity of 10-100 mg/5 00:00: 04:59 every 6 [place] mL oral 00 :00 (six) Medical solution hours as Branch needed for Cough for up to 7 days. Indication s: acute pain estrogens, Yes Take by [facility] [place] [facility] ers conjugated 3- mouth. ity of (PREMARIN 16:19: [place] ORAL) 44 Medical Branch estrogens, Yes Take by [facility] [place] [facility] ers conjugated 3-01 mouth. ity of (PREMARIN 16:19: [place] ORAL) 44 Medical Branch estrogens, 0 Yes Take by [facility] [place] [facility] ers conjugated 3-01 mouth. ity of (PREMARIN 16:19: [place] ORAL) 44 Medical Branch naproxen 0 Yes [id number] 500mg Take 1 U nivers (NAPROSYN) 2-02 tablet by ity of 500 mg 00:00: mouth 2 [place] tablet 00 (two) Medical times Branch daily with meals. naproxen Yes [id number] 500mg Take 1 U nivers (NAPROSYN) 2-02 tablet by ity of 500 mg 00:00: mouth 2 [place] tablet 00 (two) Medical times Branch daily with meals. naproxen Yes [id number] 500mg Take 1 U nivers (NAPROSYN) 2-02 tablet by ity of 500 mg 00:00: mouth 2 [place] tablet 00 (two) Medical times Branch daily with meals. albuterol 2020-07 Yes [id number] 2{puff} Inhale 2 Univers 90 2-22 Puffs [...] Cough. Indication s: cough albuterol 2020-07 Yes [id number] 2{puff} Inhale 2 Univers 90 2-22 Puffs [...] Cough. Indication s: cough albuterol 2020-07 Yes [id number] 2{puff} Inhale 2 Univers 90 2-22 Puffs [...] 0-23 [facility] 00:[facility]: - [facility] 00 [facility] Premarin Premarin 2018-07 No 1{table QD Premarin 1.25 MG 1.25 MG 0-23 t} 1.25 MG 00:00: 00 estrogens, 2018-07 Yes Take by Univ ers conjugated 0-23 mouth ity of (PREMARIN 00:00: daily. [place] ORAL) 00 MD Gian payton [facility] estrogens, 2018-07 Yes Take by Univ ers conjugated 0-23 mouth ity of (PREMARIN 00:00: daily. [place] ORAL) [facility] Yes Take by Univ ers conjugated 0-23 mouth ity of (PREMARIN 00:00: daily. [place] ORAL) 00 MD Gian payton [facility] estrogens, 2018-07 Yes Take by Univ ers conjugated 0-23 mouth ity of (PREMARIN 00:00: daily. [place] ORAL) 00 MD Gian payton [facility] estrogens, 2018-07 Yes Take by Univ ers conjugated 0-23 mouth ity of (PREMARIN 00:00: daily. [place] ORAL) [facility] estrogens, 2018-07 Yes Take by Univ ers conjugated 0-23 mouth ity of (PREMARIN 00:00: daily. [place] ORAL) [facility] tata [facility] estrogens, 2018-07 Yes Take by Univ ers conjugated 0-23 mouth ity of (PREMARIN 00:00: daily. [place] ORAL) [facility] estrogens, 2018-07 Yes Take by Univ ers conjugated 0-23 mouth ity of (PREMARIN 00:00: daily. [place] ORAL) [facility], 2018-07 Yes Take by Univ ers conjugated 0-23 mouth ity of (PREMARIN 00:00: daily. [place] ORAL) [facility] estrogens, 2018-07 Yes Take by Univ ers conjugated 0-23 mouth ity of (PREMARIN 00:00: daily. [place] ORAL) 00 [facility] estrogens, 2018-07 Yes Take by Univ ers conjugated 0-23 mouth ity of (PREMARIN 00:00: daily. [place] ORAL) 00 [facility] estrogens, 2018-07 Yes Take by Univ ers conjugated 0-23 mouth ity of (PREMARIN 00:00: daily. [place] ORAL) 00 [facility] Estradiol Estradiol 2018-07 Yes Kaywin 1 tablet Common 0-01 [facility] 00:[facility]: - [facility] 00 [facility] citalopram Yes Univers (CeleXA) 40 9-10 ity of mg tablet 00:00: [place] 00 MD Springer [facility] citalopram Yes Univers (CeleXA) 40 9-10 ity of mg tablet 00:00: [place] MD Gian payton [facility] citalopram Yes Univers (CeleXA) 40 9-10 ity of mg tablet 00:00: MD Gian payton [facility] 0 Yes Univers (CeleXA) 40 9-10 ity of mg tablet 00:00: MD Gian payton [facility] 0 Yes Univers (CeleXA) 40 9-10 ity of mg tablet 00:00: MD Gian payton [facility] Yes Univers (CeleXA) 40 9-10 ity of mg tablet 00:00: MD Gian payton [facility] Yes Univers (CeleXA) 40 9-10 ity of mg tablet 00:00: MD Gian payton [facility] Yes Univers (CeleXA) 40 9-10 ity of mg tablet 00:00: MD Gian payton [facility] Yes Univers (CeleXA) 40 9-10 ity of mg tablet 00:00: MD Gian payton [facility] Yes Univers (CeleXA) 40 9-10 ity of mg tablet 00:00: MD Gian payton [facility] 0 Yes Univers (CeleXA) 40 9-10 ity of mg tablet 00:00: MD Gian payton [facility] citalopra 0 Yes Univers (CeleXA) 40 9-10 ity of mg tablet 00:00: MD Gian payton [facility] levothyroxi Yes Univer s ne 175 mcg 8-10 ity of cap 00:00: MD Gian payton [facility] levothyroxi Yes Univer s ne 175 mcg 8-10 ity of cap 00:00: MD Gian payton [facility] levothyroxi Yes Univer s ne 175 mcg 8-10 ity of cap 00:00: MD Gian payton [facility] levothyroxi Yes Univer s ne 175 mcg 8-10 ity of cap 00:00: MD Gian payton [facility] levothyroxi Yes Univer s ne 175 mcg 8-10 ity of cap 00:00: MD Gian payton [facility] levothyroxi 2010-0 Yes Univer s ne 175 mcg 8-10 ity of cap 00:00: [place] 00 Tristianbrennan payton [facility] levothyroxi 2010-0 Yes Univer s ne 175 mcg 8-10 ity of cap 00:00: [place] 00 Tristianbrennan payton [facility] levothyroxi 2010-0 Yes Univer s ne 175 mcg 8-10 ity of cap 00:00: [place] 00 Tristianbrennan payton [facility] levothyroxi 2010-0 Yes Univer s ne 175 mcg 8-10 ity of cap 00:00: [place] 00 Tristianbrennan payton [facility] levothyroxi 2010-0 Yes Univer s ne 175 mcg 8-10 ity of cap 00:00: [place] 00 Tristianbrennan payton [facility] levothyroxi 2010-0 Yes Univer s ne 175 mcg 8-10 ity of cap 00:00: [place] 00 Tristianbrennan payton [facility] levothyroxi 2010-0 Yes Univer s ne 175 mcg 8-10 ity of cap 00:00: [place] 00 MD Gian payton [facility] zolpidem 2006-0 Yes Univers (AMBIEN) 10 07-01 ity of mg tablet 00:00: [place] 00 MD Gian payton [facility] zolpidem 2007-0 Yes Univers (AMBIEN) 10 07-01 ity of mg tablet 00:00: [place] 00 MD Gian payton [facility] zolpidem 2007-0 Yes Univers (AMBIEN) 10 07-01 ity of mg tablet 00:00: [place] 00 MD Gian payton [facility] zolpidem 2007-0 Yes Univers (AMBIEN) 10 07-01 ity of mg tablet 00:00: [place] 00 MD Gian payton [facility] zolpidem 2007-0 Yes Univers (AMBIEN) 10 07-01 ity of mg tablet 00:00: 00 MD Gian payton [facility] zolpidem 2007-0 Yes Univers (AMBIEN) 10 07-01 ity of mg tablet 00:00: [place] 00 MD Gian payton [facility] zolpidem 2007-0 Yes Univers (AMBIEN) 10 07-01 ity of mg tablet 00:00: [place] 00 MD Gian payton [facility] zolpidem 2007-0 Yes Univers (AMBIEN) 10 07-01 ity of mg tablet 00:00: [place] 00 MD [facility] zolpidem Yes Univers (AMBIEN) 10 07-01 ity of mg tablet 00:00: [place] 00 MD Gian payton [facility] zolpidem Yes Univers (AMBIEN) 10 07-01 ity of mg tablet 00:00: [place] 00 MD Gian payton [facility] zolpidem Yes [facility] 10 07-01 ity of mg tablet 00:00: [place] 00 MD Gian payton [facility] zolpidem Yes Univers (AMBIEN) 10 07-01 ity of mg tablet 00:00: [place] 00 [facility] acetaminoph acetaminoph Yes 1 [...] [facility] conjugated conjugated Gutierrez es (HALFWAY) 1.25 (HALFWAY) 1.25 Mem oria MG Oral MG Oral [...] [facility] conjugated conjugated daily Olamide kes (HALFWAY) 1.25 (HALFWAY) 1.25 Mem oria MG Oral MG Oral l Tablet Tablet (LUF/LI V/SA) levothyroxi levothyroxi Yes 150ug 1xD orally [facility] ne daily [facility] (LUF/LI V/SA) Celexa Celexa Yes Kaywin 1 tablet Commo n [facility] Levothyroxi Levothyroxi Yes Kaywin 1 tablet Common ne Sodium ne Sodium [facility]iden on an Sp karla empty - [facility] stomach in [facility] Estradiol Estradiol Yes Kaywin 1 patch to Common [facility] skin [facility] Promethazin Promethazin No 1{table Promethazi e HCl 25 mg e HCl 25 mg t_as_ne ne HCl 25 eded} mg Estradiol Estradiol No 1{patch Estradiol 0.1 MG/24HR 0.1 MG/24HR _to_ski 0.1 n} MG/24HR Celexa 40 Celexa 40 No 1{table QD Celexa 40 MG MG t} MG Springer Springer No 1{table QID Springer 7.5-325 MG 7.5-325 MG t_as_ne 7.5-325 MG [...] Sodium 150 MCG 150 MCG 150 MCG Springer Springer No 1{table QID Springer 7.5-325 MG 7.5-325 MG t_as_ne 7.5-325 MG eded} Promethazin Promethazin No 1{table Promethazi e HCl 25 mg e HCl 25 mg t_as_ne ne HCl 25 eded} mg Estradiol Estradiol No 1{patch Estradiol 0.1 MG/24HR 0.1 MG/24HR _to_ski 0.1 n} MG/24HR Premarin Premarin No 1{table QD Premarin 1.25 MG 1.25 MG t} 1.25 MG Springer Springer No 1{table QID Springer 7.5-325 MG 7.5-325 MG t_as_ne 7.5-325 MG [...] 1.25 MG 1.25 MG t} 1.25 MG Springer Springer No 1{table QID Springer 7.5-325 MG 7.5-325 MG t_as_ne 7.5-325 MG eded} Levothyroxi Levothyroxi No QD Levothyrox ne Sodium ne Sodium ine Sodium 150 MCG 150 MCG 150 MCG CeleXA 40 CeleXA 40 No 1{table QD CeleXA 40 MG MG t} MG Immunizations Ordered Filled Immunization Date Status Comments Sourc e Immunization Name Name influenza, high influenza, high 2015-04-[address] [facility] dose seasonal, dose seasonal, 00:00:00 Memori al preservative-free preservative-free (LUF/DAVID/SA) Influenza, 2011-03-30 Completed University of Unspecified 00:00:00 [place] MD [place] [facility] Tdap 2011-03-30 Completed University of 00:00:00 [place] [facility] Influenza, 2011-03-30 Completed University of Unspecified 00:00:00 [place] Alfonso [facility] Tdap 2011-03-30 Completed University of 00:00:00 [place] [facility] Influenza, 2011-03-30 Completed University of Unspecified 00:00:00 [place] MD [place] [facility] Tdap 2011-03-30 Completed University of 00:00:00 [place] [facility] Influenza, 2011-03-30 Completed University of Unspecified 00:00:00 [place] MD [place] [facility] Tdap 2011-03-30 Completed University of 00:00:00 [place] [facility] Influenza, 2011-03-30 Completed University of Unspecified 00:00:00 [place] MD [place] [facility] Tdap 2011-03-30 Completed University of 00:00:00 [place] [facility] Influenza, 2011-03-30 Completed University of Unspecified 00:00:00 [place] MD [place] [facility] Tdap 2011-03-30 Completed University of 00:00:00 [place] [facility] Influenza, 2011-03-30 Completed University of Unspecified 00:00:00 [place] MD [place] [facility] Tdap 2011-03-30 Completed University of 00:00:00 [place] [facility] Influenza, 2011-03-30 Completed University of Unspecified 00:00:00 [place] MD [place] [facility] Tdap 2011-03-30 Completed University of 00:00:00 [place] [facility] Influenza, 2011-03-30 Completed University of Unspecified 00:00:00 [place] MD [place] [facility] Tdap 2011-03-30 Completed University of 00:00:00 [place] [facility] Influenza, 2011-03-30 Completed University of Unspecified 00:00:00 [place] MD [place] [facility] Tdap 2011-03-30 Completed University of 00:00:00 [place] [facility] Influenza, 2011-03-30 Completed University of Unspecified 00:00:00 [place] MD Alfonso [facility] Tdap 2011-03-30 Completed University of 00:00:00 [place] MD Olvin banuelos [facility] Influenza, 2011-03-30 Completed University of Unspecified 00:00:00 [place] MD Alfonso hazel [facility] Tdap 2011-03-30 Completed University of 00:00:00 [place] MD Olvin banuelos [facility] Influenza (IM) 2009-04-05 Completed University of Preservative Free 00:00:00 [facility] Influenza (IM) 2009-04-05 Completed University of Preservative Free 00:00:00 [facility] Influenza (IM) 2009-04-05 Completed University of Preservative Free 00:00:00 [facility] Influenza (IM) 2009-04-05 Completed University of Preservative Free 00:00:00 [facility] Influenza (IM) 2009-04-05 Completed University of Preservative Free 00:00:00 [facility] Influenza (IM) 2009-04-05 Completed University of Preservative Free 00:00:00 [facility] Influenza (IM) 2009-04-05 Completed University of Preservative Free 00:00:00 [facility] Influenza (IM) 2009-04-05 Completed University of Preservative Free 00:00:00 [facility] Influenza (IM) 2009-04-05 Completed University of Preservative Free 00:00:00 [facility] Influenza (IM) 2009-04-05 Completed University of Preservative Free 00:00:00 [facility] Influenza (IM) 2009-04-05 Completed University of Preservative Free 00:00:00 [facility] Influenza (IM) 2009-04-05 Completed University of Preservative Free 00:00:00 [facility] Vital Signs Vital Name Observation Time Observation Value Comments Source Systolic blood 2022-05-07 14:46:22 138 mm[Hg] Univer sity of pressure [facility] Diastolic blood 2022-05-07 14:46:22 88 mm[Hg] Unive rsity of pressure [facility] Heart rate 2022-05-07 14:46:22 89 /min [facility] Respiratory rate 2022-05-07 14:46:22 20 /min Univ ersity [facility] [place] [facility] Oxygen saturation in 2022-05-07 14:46:22 98 /min University of Arterial blood by [facility] Pulse oximetry Branch Body temperature 2022-05-07 14:07:33 37 Ericka Univ [facility] [place] [facility] Body height 2022-05-07 13:56:00 162.6 cm [facility] [place] [facility] Body weight 2022-05-07 13:56:00 108.863 kg [facility] [place] [facility] BMI 2022-05-07 13:56:00 41.20 kg/m2 [facility] [place] [facility] Systolic blood 2022-02-19 14:13:00 156 mm[Hg] Univer sity of pressure [place] [facility] Diastolic blood 2022-02-19 14:13:00 94 mm[Hg] Unive rsity of pressure [place] [facility] Heart rate 2022-02-19 14:13:00 111 /min [facility] [place] [facility] Body temperature 2022-02-19 14:13:00 37.11 Ericka Univ ers[facility] [place] [facility] Respiratory rate 2022-02-19 14:13:00 22 /min Univ ers[facility] [place] [facility] Body height 2022-02-19 14:13:00 162.6 cm [facility] Body weight 2022-02-19 14:13:00 104.327 kg [facility] BMI 2022-02-19 14:13:00 39.48 kg/m2 [facility] Oxygen saturation in 2022-02-19 14:13:00 99 /min [facility] Arterial blood by [facility] Pulse oximetry Branch Systolic blood 2021-11-29 22:40:00 116 mm[Hg] [facility] Diastolic blood 2021-11-29 22:40:00 85 mm[Hg] [facility] Heart rate 2021-11-29 22:40:00 87 /min [facility] Body temperature 2021-11-29 22:40:00 37.28 Ericka [facility] Respiratory rate 2021-11-29 22:40:00 16 /min [facility] Body height 2021-11-29 22:40:00 162.6 cm [facility] Body weight 2021-11-29 22:40:00 103.874 kg [facility] BMI 2021-11-29 22:40:00 39.31 kg/m2 [facility] Oxygen saturation in 2021-11-29 22:40:00 98 /min [facility] Arterial blood by [facility] Pulse oximetry Branch Height 2021-04-23 00:58:00 162.56 [...] sity of [facility] Diastolic blood 2021-10-26 15:16:33 87 mm[Hg] [facility] Heart rate 2021-10-26 15:16:33 92 /min [facility] Respiratory rate 2021-10-26 15:16:33 16 /min [facility] Oxygen saturation in 2021-10-26 15:16:33 98 /min [facility] Arterial blood by Jeffrey muñoz Pulse oximetry [facility] Center Body Temperature 2021-04-23 00:58:00 97.8 [degF] [facility] (LUF/DAVID/SA) Pulse Rate 2021-04-23 00:58:00 116 /min [facility] (LUF/DAVID/SA) Respiratory Rate 2021-04-23 00:58:00 18 /min [facility] (F/DAVID/SA) O2% BldC Oximetry 2021-04-23 00:58:00 99 % [facility] (LUF/DAVID/SA) BP Systolic 2021-04-23 00:58:00 111 mm[Hg] [facility] (LUF/DAVID/SA) BP Diastolic 2021-04-23 00:58:00 77 mm[Hg] [facility] (LUF/DAVID/SA) Height 2021-04-23 00:58:00 64 [in_i] [facility] (F/DAVID/SA) Weight 2021-04-23 00:58:00 105.1 kg [facility] (LUF/DAVID/SA) BMI (Body Mass 2021-04-23 00:58:00 40 kg/m2 [facility] (F/DAVID/SA) Body Temperature 2021-03-24 10:53:00 98.6 [degF] [facility] (LUF/DAVID/SA) Pulse Rate 2021-03-24 10:53:00 87 /min [facility] (F/ADVID/SA) Respiratory Rate 2021-03-24 10:53:00 18 /min [facility] (LUF/DAVID/SA) O2% BldC Oximetry 2021-03-24 10:53:00 97 % [facility] (LUF/DAVID/SA) BP Systolic 2021-03-24 10:53:00 120 mm[Hg] [facility] (LUF/DAVID/SA) BP Diastolic 2021-03-24 10:53:00 86 mm[Hg] [facility] (LUF/DAVID/SA) Height 2021-03-24 10:53:00 64 [in_i] [facility] (LUF/DAVID/SA) Weight 2021-03-24 10:53:00 105 kg [facility] (LUF/DAVID/SA) BMI (Body Mass 2021-03-24 10:53:00 40 kg/m2 [facility]) [facility] (LUF/DAVID/SA) Body Temperature 2021-03-10 10:55:00 98.4 [degF] [facility] (LUF/DAVID/SA) Pulse Rate 2021-03-10 10:55:00 85 /min [facility] (F/DAVID/SA) Respiratory Rate 2021-03-10 10:55:00 20 /min [facility] (F/DAVID/SA) O2% BldC Oximetry 2021-03-10 10:55:00 100 % [facility] (LUF/DAVID/SA) BP Systolic 2021-03-10 10:55:00 140 mm[Hg] [facility] (LUF/DAVID/SA) BP Diastolic 2021-03-10 10:55:00 98 mm[Hg] [facility] (F/DAVID/SA) Height 2021-03-10 10:55:00 64 [in_i] [facility] (LUF/DAVID/SA) Weight 2021-03-10 10:55:00 105.2 kg [facility] (LUF/DAVID/SA) BMI (Body Mass 2021-03-10 10:55:00 40 kg/m2 [facility]) [facility] (LUF/DAVID/SA) Pulse Rate 2021-02-23 12:32:00 67 /min [facility] (LUF/DAVID/SA) O2% BldC Oximetry 2021-02-23 12:32:00 98 % [facility] (LUF/DAVID/SA) BP Systolic 2021-02-23 12:32:00 112 mm[Hg] [facility] (LUF/DAVID/SA) BP Diastolic 2021-02-23 12:32:00 70 mm[Hg] [facility] (LUF/DAVID/SA) Heart Rate 2021-02-23 11:16:00 64 /min [facility] (LUF/DAVID/SA) Respiratory Rate 2021-02-23 11:16:00 14 /min [facility] (F/DAVID/SA) Body Temperature 2021-02-23 08:24:00 98.1 [degF] [facility] (F/DAVID/SA) Height 2021-02-23 08:24:00 64 [in_i] [facility] (F/DAVID/SA) Weight 2021-02-23 08:24:00 110 kg [facility] (F/DAVID/SA) BMI (Body Mass 2021-02-23 08:24:00 41.9 kg/m2 [facility] (LUF/DAVID/SA) Heart Rate 2021-01-10 01:46:00 93 /min [facility] (F/DAVID/SA) Pulse Rate 2021-01-10 01:46:00 95 /min [facility] (LUF/DAVID/SA) Respiratory Rate 2021-01-10 01:46:00 16 /min [facility] (F/DAVID/SA) O2% BldC Oximetry 2021-01-10 01:46:00 97 % [facility] (LUF/DAVID/SA) BP Systolic 2021-01-10 01:46:00 103 mm[Hg] [facility] (LUF/[facility]ID/SA) BP Diastolic 2021-01-10 01:46:00 71 mm[Hg] [facility] (F/DAVID/SA) Weight 2021-01-10 00:53:00 102 kg [facility] (LUF/[facility]VID/SA) Body Temperature 2021-01-10 00:47:00 98.6 [degF] [facility] (LUF/DAVID/SA) Pulse Rate 2020-12-12 14:20:00 87 /min [facility] ([facility]F/[facility]) O2% BldC Oximetry 2020-12-12 14:20:00 98 % [facility] (LUF/DAVID/SA) BP Systolic 2020-12-12 14:20:00 128 mm[Hg] [facility] (LUF/DAVID/SA) BP Diastolic 2020-12-12 14:20:00 86 mm[Hg] [facility] (LUF/[facility]ID/SA) Body Temperature 2020-12-12 12:39:00 98.9 [degF] [facility] (LUF/DAVID/SA) Respiratory Rate 2020-12-12 12:39:00 20 /min [facility] (LUF/[facility]) Weight 2020-12-12 12:39:00 102 kg [facility] (LUF/[facility]) Body Temperature 2020-12-08 10:27:00 98.6 [degF] [facility] (LUF/DAVID/SA) Pulse Rate 2020-12-08 10:27:00 79 /min [facility] (LUF/[facility]/SA) Respiratory Rate 2020-12-08 10:27:00 16 /min [facility] (LUF/DA[facility]ID/SA) O2% BldC Oximetry 2020-12-08 10:27:00 99 % [facility] (LUF/DAVID/SA) BP Systolic 2020-12-08 10:27:00 111 mm[Hg] [facility] (LUF/[facility]VID/SA) BP Diastolic 2020-12-08 10:27:00 57 mm[Hg] [facility] ([facility]F/[facility]) Weight 2020-12-08 10:27:00 103 kg [facility] (LUF/[facility]/SA) Body Temperature 2020-11-25 00:27:00 97.9 [degF] [facility] (LUF/DAVID/SA) Pulse Rate 2020-11-25 00:27:00 82 /min [facility] (LUF/[facility]/SA) Respiratory Rate 2020-11-25 00:27:00 17 /min [facility] (LUF/DAVID/SA) O2% BldC Oximetry 2020-11-25 00:27:00 98 % [facility] (LUF/DAVID/SA) BP Systolic 2020-11-25 00:27:00 109 mm[Hg] [facility] (LUF/DAVID/SA) BP Diastolic 2020-11-25 00:27:00 62 mm[Hg] [facility] (LUF/[facility]ID/SA) Heart Rate 2020-11-21 09:30:00 75 /min [facility] (LUF/DAVID/SA) Respiratory Rate 2020-11-21 09:30:00 14 /min [facility] (F/DAVID/SA) BP Systolic 2020-11-21 09:30:00 120 mm[Hg] [facility] (LUF/[facility]) BP Diastolic 2020-11-21 09:30:00 76 mm[Hg] [facility] (F/DAVID/SA) Body Temperature 2020-11-21 07:15:00 98.1 [degF] [facility] (F/DAVID/SA) Pulse Rate 2020-11-21 07:15:00 103 /min [facility] (F/DAVID/SA) O2% BldC Oximetry 2020-11-21 07:15:00 100 % [facility] (F/DAVID/SA) Height 2020-11-21 07:15:00 64 [in_i] [facility] (F/DAVID/SA) Weight 2020-11-21 07:15:00 103.1 kg [facility] (F/DAVID/SA) BMI (Body Mass 2020-11-21 07:15:00 39.2 kg/m2 [facility] (F/DAVID/SA) Heart Rate 2020-11-14 13:30:00 69 /min [facility] (LUF/DAVID/SA) Pulse Rate 2020-11-14 13:30:00 70 /min [facility] (F/DAVID/SA) Respiratory Rate 2020-11-14 13:30:00 10 /min [facility] (F/DAVID/SA) O2% BldC Oximetry 2020-11-14 13:30:00 96 % [facility] (LUF/DAVID/SA) BP Systolic 2020-11-14 13:30:00 103 mm[Hg] [facility] (LUF/[facility]/SA) BP Diastolic 2020-11-14 13:30:00 77 mm[Hg] [facility] (LUF/[facility]/SA) Body Temperature 2020-11-14 09:47:00 97.4 [degF] [facility] (F/DAVID/SA) Weight 2020-11-14 09:47:00 103 kg [facility] (F/DA[facility]/SA) Body Temperature 2020-11-08 08:32:00 98.1 [degF] [facility] (F/DAVID/SA) Pulse Rate 2020-11-08 08:32:00 82 /min [facility] (F/[facility]) Respiratory Rate 2020-11-08 08:32:00 20 /min [facility] (F/DAV[facility]) O2% BldC Oximetry 2020-11-08 08:32:00 100 % [facility] (F/DAVID/SA) BP Systolic 2020-11-08 08:32:00 129 mm[Hg] [facility] (F/[facility]/SA) BP Diastolic 2020-11-08 08:32:00 72 mm[Hg] [facility] (F/[facility]) Height 2020-11-08 08:32:00 64 [in_i] [facility] (F/[facility]) Weight 2020-11-08 08:32:00 103.1 kg [facility] (F/[facility]ID/SA) BMI (Body Mass 2020-11-08 08:32:00 39.2 kg/m2 [facility] (LUF/DAVID/SA) Body Temperature 2020-11-01 00:58:00 98.7 [degF] [facility] (LUF/DAVID/SA) Pulse Rate 2020-11-01 00:58:00 104 /min [facility] ([facility]F/[facility]) Respiratory Rate 2020-11-01 00:58:00 20 /min [facility] (LUF/[facility]) O2% BldC Oximetry 2020-11-01 00:58:00 99 % [facility] (LUF/[facility]ID/SA) BP Systolic 2020-11-01 00:58:00 133 mm[Hg] [facility] (LUF/[facility]/SA) BP Diastolic 2020-11-01 00:58:00 101 mm[Hg] [facility] ([facility]) Height 2020-11-01 00:53:00 65 [in_i] [facility] (F/[facility]) Weight 2020-11-01 00:53:00 103 kg [facility] (F/DAVID/SA) BMI (Body Mass 2020-11-01 00:53:00 37.8 kg/m2 [facility] (LUF/DAVID/SA) Body Temperature 2020-10-04 23:51:00 98 [degF] [facility] (F/DAVID/SA) Pulse Rate 2020-10-04 23:51:00 96 /min [facility] (LUF/[facility]) Respiratory Rate 2020-10-04 23:51:00 20 /min [facility] (F/[facility]/SA) O2% BldC Oximetry 2020-10-04 23:51:00 98 % [facility] (LUF/[facility]/SA) BP Systolic 2020-10-04 23:51:00 125 mm[Hg] [facility] ([facility]F/[facility]) BP Diastolic 2020-10-04 23:51:00 73 mm[Hg] [facility] (F/[facility]) Height 2020-10-04 23:47:00 65 [in_i] [facility] (LUF/[facility]) Weight 2020-10-04 23:47:00 102.6 kg [facility] ([facility]F/[facility]/SA) BMI (Body Mass 2020-10-04 23:47:00 37.6 kg/m2 [facility]) [facility] (LUF/DAVID/SA) Body Temperature 2020-09-18 01:44:00 98.3 [degF] [facility] (LUF/[facility]) Pulse Rate 2020-09-18 01:44:00 116 /min [facility] ([facility]) Respiratory Rate 2020-09-18 01:44:00 20 /min [facility] (LUF/[facility]) O2% BldC Oximetry 2020-09-18 01:44:00 99 % [facility] (LUF/[facility]) BP Systolic 2020-09-18 01:44:00 127 mm[Hg] [facility] ([facility]F/[facility]) BP Diastolic 2020-09-18 01:44:00 83 mm[Hg] [facility] (F/[facility]) Height 2020-09-18 01:40:00 64 [in_i] [facility] (F/[facility]) Weight 2020-09-18 01:40:00 102.8 kg [facility] (LUF/[facility]/SA) BMI (Body Mass 2020-09-18 01:40:00 39.1 kg/m2 [facility]) [facility] (LUF/[facility]/SA) Pulse Rate 2020-09-12 02:16:00 88 /min [facility] ([facility]) O2% BldC Oximetry 2020-09-12 02:16:00 98 % [facility] (LUF/[facility]) BP Systolic 2020-09-12 02:16:00 113 mm[Hg] [facility] ([facility]) BP Diastolic 2020-09-12 02:16:00 64 mm[Hg] [facility] ([facility]) Body Temperature 2020-09-12 00:56:00 97.9 [degF] [facility] (F/[facility]) Respiratory Rate 2020-09-12 00:56:00 18 /min [facility] ([facility]F/[facility]) Height 2020-09-12 00:50:00 65 [in_i] [facility] ([facility]F/[facility]) Weight 2020-09-12 00:50:00 104.5 kg [facility] ([facility]F/[facility]) BMI (Body Mass 2020-09-12 00:50:00 38.3 kg/m2 [facility] Index) [facility] (LUF/DAVID/SA) Pulse Rate 2020-08-22 03:16:00 100 /min [facility] ([facility]F/[facility]) O2% BldC Oximetry 2020-08-22 03:16:00 95 % [facility] ([facility]F/[facility]) BP Systolic 2020-08-22 03:16:00 129 mm[Hg] [facility] ([facility]) BP Diastolic 2020-08-22 03:16:00 88 mm[Hg] [facility] ([facility]) Body Temperature 2020-08-22 01:35:00 98.4 [degF] [facility] ([facility]) Respiratory Rate 2020-08-22 01:35:00 20 /min [facility] ([facility]) Height 2020-08-22 01:35:00 64 [in_i] [facility] ([facility]) Weight 2020-08-22 01:35:00 102 kg [facility] ([facility]F/[facility]) BMI (Body Mass 2020-08-22 01:35:00 38.8 kg/m2 [facility]) [facility] (LUF/[facility]/SA) Pulse Rate 2020-08-06 03:31:00 83 /min [facility] ([facility]) O2% BldC Oximetry 2020-08-06 03:31:00 96 % [facility] (LUF/[facility]) BP Systolic 2020-08-06 03:31:00 127 mm[Hg] [facility] ([facility]) BP Diastolic 2020-08-06 03:31:00 82 mm[Hg] [facility] ([facility]) Body Temperature 2020-08-06 01:45:00 98 [degF] [facility] ([facility]) Respiratory Rate 2020-08-06 01:45:00 20 /min [facility] ([facility]) Height 2020-08-06 01:39:00 66 [in_i] [facility] ([facility]) Weight 2020-08-06 01:39:00 104.2 kg [facility] ([facility]) BMI (Body Mass 2020-08-06 01:39:00 37.3 kg/m2 [facility] (LUF/DAVID/SA) Pulse Rate 2020-07-19 11:16:00 67 /min [facility] (F/[facility]) O2% BldC Oximetry 2020-07-19 11:16:00 94 % [facility] (LUF/[facility]) BP Systolic 2020-07-19 11:16:00 101 mm[Hg] [facility] ([facility]F/[facility]) BP Diastolic 2020-07-19 11:16:00 63 mm[Hg] [facility] ([facility]) Body Temperature 2020-07-19 07:50:00 98 [degF] [facility] ([facility]) Respiratory Rate 2020-07-19 07:50:00 18 /min [facility] (F/[facility]) Weight 2020-07-19 07:50:00 100 kg [facility] ([facility]) Heart Rate 2020-07-05 04:46:00 80 /min [facility] (F/[facility]) Respiratory Rate 2020-07-05 04:46:00 15 /min [facility] ([facility]F/[facility]) BP Systolic 2020-07-05 04:46:00 134 mm[Hg] [facility] ([facility]) BP Diastolic 2020-07-05 04:46:00 60 mm[Hg] [facility] ([facility]) Body Temperature 2020-07-05 02:57:00 98 [degF] [facility] ([facility]) Pulse Rate 2020-07-05 02:57:00 82 /min [facility] ([facility]) O2% BldC Oximetry 2020-07-05 02:57:00 99 % [facility] (LUF/[facility]) Height 2020-07-05 02:50:00 65 [in_i] [facility] ([facility]) Weight 2020-07-05 02:50:00 102.1 kg [facility] ([facility]F/[facility]/SA) BMI (Body Mass 2020-07-05 02:50:00 37.5 kg/m2 [facility] Index) [facility] (LUF/DAVID/SA) Body Temperature 2020-06-07 13:38:00 98.5 [degF] [facility] (LUF/[facility]) Pulse Rate 2020-06-07 13:38:00 95 /min [facility] ([facility]F/[facility]) Respiratory Rate 2020-06-07 13:38:00 20 /min [facility] ([facility]) O2% BldC Oximetry 2020-06-07 13:38:00 97 % [facility] (LUF/[facility]) BP Systolic 2020-06-07 13:38:00 129 mm[Hg] [facility] ([facility]) BP Diastolic 2020-06-07 13:38:00 73 mm[Hg] [facility] ([facility]) Height 2020-06-07 13:38:00 64 [in_i] [facility] (LUF/[facility]) Weight 2020-06-07 13:38:00 99.79 kg [facility] (LUF/[facility]ID/SA) BMI (Body Mass 2020-06-07 13:38:00 38 kg/m2 [facility] Index) [facility] (LUF/DAVID/SA) Body Temperature 2020-05-31 09:45:00 99.6 [degF] [facility] ([facility]F/[facility]) Pulse Rate 2020-05-31 09:45:00 86 /min [facility] ([facility]) Respiratory Rate 2020-05-31 09:45:00 18 /min [facility] (LUF/[facility]) O2% BldC Oximetry 2020-05-31 09:45:00 98 % [facility] (LUF/[facility]/SA) BP Systolic 2020-05-31 09:45:00 118 mm[Hg] [facility] ([facility]F/[facility]) BP Diastolic 2020-05-31 09:45:00 78 mm[Hg] [facility] ([facility]) Height 2020-05-31 09:45:00 64 [in_i] [facility] ([facility]) Weight 2020-05-31 09:45:00 99.79 kg [facility] (LUF/[facility]ID/SA) BMI (Body Mass 2020-05-31 09:45:00 38 kg/m2 [facility] (LUF/DAVID/SA) Heart Rate 2020-04-25 20:01:00 69 /min [facility] ([facility]F/[facility]/SA) Pulse Rate 2020-04-25 20:01:00 71 /min [facility] ([facility]F/[facility]) Respiratory Rate 2020-04-25 20:01:00 18 /min [facility] (LUF/[facility]) O2% BldC Oximetry 2020-04-25 20:01:00 100 % [facility] (LUF/DAVID/SA) BP Systolic 2020-04-25 20:01:00 126 mm[Hg] [facility] ([facility]F/[facility]) BP Diastolic 2020-04-25 20:01:00 86 mm[Hg] [facility] ([facility]F/[facility]) Body Temperature 2020-04-25 16:50:00 98.4 [degF] [facility] (LUF/[facility]) Height 2020-04-25 16:50:00 64 [in_i] [facility] (LUF/[facility]/SA) Weight 2020-04-25 16:50:00 220 [lb_av] [facility] (LUF/[facility]VID/SA) BMI (Body Mass 2020-04-25 16:50:00 38 kg/m2 [facility] Index) [facility] (LUF/DAVID/SA) Heart Rate 2020-03-20 18:18:00 112 /min [facility] (LUF/[facility]VID/SA) Pulse Rate 2020-03-20 18:16:00 93 /min [facility] ([facility]F/[facility]ID/[facility]) O2% BldC Oximetry 2020-03-20 18:16:00 92 % [facility] (LUF/DAVID/SA) BP Systolic 2020-03-20 18:16:00 127 mm[Hg] [facility] (LUF/[facility]ID/SA) BP Diastolic 2020-03-20 18:16:00 85 mm[Hg] [facility] (LUF/[facility]ID/SA) Body Temperature 2020-03-20 17:17:00 99.2 [degF] [facility] (LUF/[facility]) Respiratory Rate 2020-03-20 17:17:00 19 /min [facility] (LUF/[facility]ID/[facility]) Height 2020-03-20 17:17:00 64 [in_i] [facility] ([facility]F/[facility]ID/SA) Weight 2020-03-20 17:17:00 106.9 kg [facility] (LUF/[facility]ID/SA) BMI (Body Mass 2020-03-20 17:17:00 40.7 kg/m2 [facility] Index) [facility] (LUF/DAVID/SA) Respiratory Rate 2020-03-17 10:33:00 16 /min [facility] (LUF/DAVID/SA) Body Temperature 2020-03-17 07:54:00 97.9 [degF] [facility] (LUF/[facility]ID/SA) Pulse Rate 2020-03-17 07:54:00 83 /min [facility] ([facility]) O2% BldC Oximetry 2020-03-17 07:54:00 96 % [facility] (LUF/DAVID/SA) BP Systolic 2020-03-17 07:54:00 107 mm[Hg] [facility] (LUF/DAVID/SA) BP Diastolic 2020-03-17 07:54:00 75 mm[Hg] [facility] (LUF/DAVID/SA) Weight 2020-03-17 00:09:00 105.6 kg [facility] (LUF/[facility]ID/[facility]) Heart Rate 2020-03-13 15:46:00 81 /min [facility] ([facility]F/[facility]) Height 2020-03-13 15:31:00 64 [in_i] [facility] (LUF/[facility]ID/SA) Body Temperature 2020-03-02 15:20:00 98.6 [degF] [facility] (LUF/[facility]) Pulse Rate 2020-03-02 15:20:00 86 /min [facility] ([facility]) Respiratory Rate 2020-03-02 15:20:00 18 /min [facility] ([facility]F/[facility]) O2% BldC Oximetry 2020-03-02 15:20:00 99 % [facility] (LUF/DAVID/SA) BP Systolic 2020-03-02 15:20:00 131 mm[Hg] [facility] ([facility]F/[facility]) BP Diastolic 2020-03-02 15:20:00 85 mm[Hg] [facility] ([facility]F/[facility]/SA) Height 2020-03-01 10:54:00 64 [in_i] [facility] (LUF/[facility]ID/SA) Weight 2020-03-01 10:54:00 102 kg [facility] (LUF/DAVID/SA) BMI (Body Mass 2020-03-01 10:54:00 38.8 kg/m2 [facility] (LUF/ADVID/SA) Respiratory Rate 2020-02-27 07:47:00 16 /min [facility] (LUF/[facility]VID/[facility]) Body Temperature 2020-02-27 07:32:00 98.2 [degF] [facility] (LUF/DAVID/SA) Pulse Rate 2020-02-27 07:32:00 94 /min [facility] (LUF/[facility]ID/[facility]) O2% BldC Oximetry 2020-02-27 07:32:00 95 % [facility] (LUF/DAVID/SA) BP Systolic 2020-02-27 07:32:00 111 mm[Hg] [facility] (LUF/[facility]ID/[facility]) BP Diastolic 2020-02-27 07:32:00 56 mm[Hg] [facility] ([facility]F/[facility]ID/[facility]) Weight 2020-02-26 02:09:00 99.6 kg [facility] ([facility]ID/[facility]) Height 2020-02-25 10:03:00 64 [in_i] [facility] ([facility]ID/[facility]) Body Temperature 2020-02-25 00:52:00 97.9 [degF] [facility] (LUF/[facility]VID/[facility]) Pulse Rate 2020-02-25 00:52:00 118 /min [facility] ([facility]F/[facility]ID/[facility]) Respiratory Rate 2020-02-25 00:52:00 18 /min [facility] ([facility]F/[facility]ID/[facility]) O2% BldC Oximetry 2020-02-25 00:52:00 97 % [facility] ([facility]F/[facility]VID/[facility]) BP Systolic 2020-02-25 00:52:00 133 mm[Hg] [facility] ([facility]ID/[facility]) BP Diastolic 2020-02-25 00:52:00 67 mm[Hg] [facility] ([facility]F/[facility]ID/[facility]) Height 2020-02-25 00:47:00 64 [in_i] [facility] ([facility]ID/[facility]) Weight 2020-02-25 00:47:00 103.4 kg [facility] ([facility]ID/[facility]) BMI (Body Mass 2020-02-25 00:47:00 39.3 kg/m2 [facility] (LUF/DAVID/SA) Body Temperature 2020-01-25 11:32:00 98.4 [degF] [facility] [facility] (LUF/DAVID/SA) Pulse Rate 2020-01-25 11:32:00 81 /min [facility] (LUF/DAVID/SA) Respiratory Rate 2020-01-25 11:32:00 14 /min [facility] (LUF/DAVID/SA) O2% BldC Oximetry 2020-01-25 11:32:00 98 % [facility] (LUF/DAVID/SA) BP Systolic 2020-01-25 11:32:00 139 mm[Hg] [facility] (LUF/DAVID/SA) BP Diastolic 2020-01-25 11:32:00 89 mm[Hg] [facility] (LUF/DAVID/SA) Height 2020-01-25 11:32:00 64 [in_i] [facility] (LUF/DAVID/SA) Weight 2020-01-25 11:32:00 100.5 kg [facility] (LUF/DAVID/SA) BMI (Body Mass 2020-01-25 11:32:00 38.2 kg/m2 [facility] (LUF/DAVID/SA) Heart Rate 2019-11-24 04:16:00 84 /min [facility] (LUF/DAVID/SA) Pulse Rate 2019-11-24 04:16:00 90 /min [facility] (LUF/DAVID/SA) Respiratory Rate 2019-11-24 04:16:00 26 /min [facility] (LUF/DAVID/SA) O2% BldC Oximetry 2019-11-24 04:16:00 98 % [facility] (LUF/DAVID/SA) BP Systolic 2019-11-24 04:16:00 106 mm[Hg] [facility] (LUF/DAVID/SA) BP Diastolic 2019-11-24 04:16:00 69 mm[Hg] [facility] (LUF/DAVID/SA) Body Temperature 2019-11-24 00:54:00 98.4 [degF] [facility] (LUF/DAVID/SA) Height 2019-11-24 00:49:00 65 [in_i] [facility] (LUF/DAVID/SA) Weight 2019-11-24 00:49:00 103 kg [facility] (LUF/DAVID/SA) BMI (Body Mass 2019-11-24 00:49:00 37.8 kg/m2 [facility]) [facility] (LUF/DAVID/SA) Heart Rate 2019-10-07 22:54:00 83 /min [facility] (LUF/DAVID/SA) Respiratory Rate 2019-10-07 22:54:00 14 /min [facility] (LUF/DAVID/SA) Pulse Rate 2019-10-07 22:31:00 89 /min [facility] (LUF/DAVID/SA) O2% BldC Oximetry 2019-10-07 22:31:00 97 % [facility] (LUF/DAVID/SA) BP Systolic 2019-10-07 21:16:00 127 mm[Hg] [facility] (LUF/DAVID/SA) BP Diastolic 2019-10-07 21:16:00 85 mm[Hg] [facility] (LUF/DAVID/SA) Height 2019-10-07 20:41:00 64 [in_i] [facility] (LUF/DAVID/SA) Weight 2019-10-07 20:41:00 100.2 kg [facility] (LUF/DAIVD/SA) BMI (Body Mass 2019-10-07 20:41:00 38.1 kg/m2 [facility] (LUF/DAVID/SA) Pulse Rate 2019-09-20 04:16:00 96 /min [facility] (LUF/DAVID/SA) Respiratory Rate 2019-09-20 04:16:00 9 /min [facility] (LUF/DAVID/SA) O2% BldC Oximetry 2019-09-20 04:16:00 96 % [facility] (LUF/DAVID/SA) BP Systolic 2019-09-20 04:16:00 97 mm[Hg] [facility] (LUF/DAVID/SA) BP Diastolic 2019-09-20 04:16:00 76 mm[Hg] [facility] (LUF/DAVID/SA) Body Temperature 2019-09-20 00:44:00 98 [degF] [facility] (LUF/DAVID/SA) Height 2019-09-20 00:39:00 65 [in_i] [facility] (LUF/DAVID/SA) Weight 2019-09-20 00:39:00 101.9 kg [facility] (LUF/DAVID/SA) BMI (Body Mass 2019-09-20 00:39:00 37.4 kg/m2 [facility]) [facility] (LUF/DAVID/SA) Pulse Rate 2019-08-17 04:31:00 81 /min [facility] (LUF/DAVID/SA) Respiratory Rate 2019-08-17 04:31:00 13 /min [facility] (LUF/DAVID/SA) O2% BldC Oximetry 2019-08-17 04:31:00 97 % [facility] (LUF/DAVID/SA) BP Systolic 2019-08-17 04:31:00 136 mm[Hg] [facility] (LUF/DAVID/SA) BP Diastolic 2019-08-17 04:31:00 75 mm[Hg] [facility] (LUF/DAVID/SA) Body Temperature 2019-08-17 02:23:00 97.6 [degF] [facility] (LUF/DAVID/SA) Height 2019-08-17 02:19:00 64 [in_i] [facility] (LUF/DAIVD/SA) Weight 2019-08-17 02:19:00 100.6 kg [facility] (LUF/DAVID/SA) BMI (Body Mass 2019-08-17 02:19:00 38.3 kg/m2 [facility]) [facility] (LUF/DAVID/SA) Pulse Rate 2018-12-07 02:33:00 79 /min [facility] (LUF/DAVID/SA) Respiratory Rate 2018-12-07 02:33:00 15 /min [facility] (LUF/DAVID/SA) O2% BldC Oximetry 2018-12-07 02:33:00 96 % [facility] (LUF/DAVID/SA) BP Systolic 2018-12-07 02:33:00 120 mm[Hg] [facility] (LUF/DAVID/SA) BP Diastolic 2018-12-07 02:33:00 76 mm[Hg] [facility] (LUF/DAVID/SA) Body Temperature 2018-12-07 01:10:00 98.2 F [facility] (LUF/DAVID/SA) Height 2018-12-07 01:10:00 64 in [facility] (LUF/DAVID/SA) Weight Measured 2018-12-07 01:10:00 218.25 lbs [facility] (LUF/DAVID/SA) BMI (Body Mass 2018-12-07 01:10:00 37.7 kg/m2 [facility]) [facility] (LUF/DAVID/SA) Pulse Rate 2018-09-30 19:40:00 70 /min [facility] (LUF/DAVID/SA) Respiratory Rate 2018-09-30 19:40:00 21 /min [facility] (LUF/DAVID/SA) O2% BldC Oximetry 2018-09-30 19:40:00 100 % [facility] (LUF/DAVID/SA) BP Systolic 2018-09-30 19:40:00 124 mm[Hg] [facility] (LUF/DAVID/SA) BP Diastolic 2018-09-30 19:40:00 88 mm[Hg] [facility] (LUF/DAVID/SA) Body Temperature 2018-09-30 19:23:00 99.3 F [facility] (LUF/DAVID/SA) Height 2018-09-30 19:23:00 66 in [facility] (LUF/DAVID/SA) Weight Measured 2018-09-30 19:23:00 212.52 lbs [facility] S [facility] (LUF/DAVID/SA) BMI (Body Mass 2018-09-30 19:23:00 34.5 kg/m2 [facility]) [facility] (LUF/DAVID/SA) Body Temperature 2018-09-01 13:59:00 98 F [facility] (LUF/DAVID/SA) Pulse Rate 2018-09-01 12:15:00 74 /min [facility] (LUF/DAVID/SA) Respiratory Rate 2018-09-01 12:15:00 16 /min [facility] (F/DAVID/SA) O2% BldC Oximetry 2018-09-01 12:15:00 98 % [facility] (LUF/DAVID/SA) BP Systolic 2018-09-01 12:15:00 131 mm[Hg] [facility] (LUF/DAVID/SA) BP Diastolic 2018-09-01 12:15:00 78 mm[Hg] [facility] (LUF/DAVID/SA) Height 2018-09-01 09:16:00 64 in [facility] (LUF/DAVID/SA) Weight Measured 2018-09-01 09:16:00 214.24 lbs [facility] S [facility] (LUF/DAVID/SA) BMI (Body Mass 2018-09-01 09:16:00 37 kg/m2 [facility]) [facility] (LUF/DAVID/SA) Body Temperature 2018-05-13 10:58:00 99 F [facility] (LUF/DAVID/SA) Pulse Rate 2018-05-13 10:58:00 97 /min [facility] (F/DAVID/SA) Respiratory Rate 2018-05-13 10:58:00 18 /min [facility] (F/DAVID/SA) O2% BldC Oximetry 2018-05-13 10:58:00 98 % [facility] (LUF/DAVID/SA) BP Systolic 2018-05-13 10:58:00 131 mm[Hg] [facility] (LUF/DAVID/SA) BP Diastolic 2018-05-13 10:58:00 88 mm[Hg] [facility] (LUF/DAVID/SA) Height 2018-05-13 10:58:00 64 in [facility] (F/DAVID/SA) Weight Measured 2018-05-13 10:58:00 207.23 lbs [facility] S [facility] (LUF/DAVID/SA) BMI (Body Mass 2018-05-13 10:58:[address] [facility] [address] [facility] Index) [facility] (LUF/DAVID/SA) Body Temperature 2017-12-24 08:04:00 98.7 F [facility] (LUF/DAVID/SA) Respiratory Rate 2017-12-24 08:04:00 18 /min [facility] (F/DAVID/SA) O2% BldC Oximetry 2017-12-24 08:04:00 98 % [facility] (LUF/DAVID/SA) BP Systolic 2017-12-24 08:04:00 126 mm[Hg] [facility] (F/DAVID/SA) BP Diastolic 2017-12-24 08:04:00 86 mm[Hg] [facility] (F/DAVID/SA) Weight Measured 2017-12-24 08:04:00 207.23 lbs [facility] (F/DAVID/SA) Body Temperature 2017-06-20 23:28:00 97.4 F [facility] (F/DAVID/SA) Respiratory Rate 2017-06-20 23:28:00 20 /min [facility] ([facility]/DAVID/) O2% BldC Oximetry 2017-06-20 23:28:00 99 % [facility] (F/DAVID/SA) BP Systolic 2017-06-20 23:28:00 107 mm[Hg] [facility] (F/DAVID/SA) BP Diastolic 2017-06-20 23:28:00 76 mm[Hg] [facility] (F/DAVID/SA) Height 2017-06-20 23:28:00 64 in [facility] ([facility]/DAVID/SA) Weight Measured 2017-06-20 23:28:00 217.15 lbs [facility] (F/DAVID/SA) BMI (Body Mass 2017-06-20 23:28:00 37.5 [facility] (F/DAVID/SA) Procedures Procedure Date / Time Performing Clinician Source Performed CT ABDOMEN PELVIS WO 2022-05-07 15:06:09 Ridge Pagan [facility] BASIC METABOLIC PANEL (NA, 2022-05-07 14:20:00 Ridge Pagan [facility] K, CL, CO2, GLUCOSE, BUN, Medica l Branch CREATININE, [place]) CBC WITH DIFF 2022-05-07 14:20:00 Ridge Pagan [facility] URINALYSIS 2022-05-07 14:20:00 Ridge Pagan [facility] CONSENT/REFUSAL FOR 2022-05-07 13:49:51 Doctor Unassigned, [facility] DIAGNOSIS AND TREATMENT [facility] CT ABDOMEN PELVIS WO 2022-02-19 15:49:34 [facility] Branch LIPASE 2022-02-19 14:26:00 Trice Harris [facility] COMP. METABOLIC PANEL 2022-02-19 14:26:00 Trice Harris [facility] ([id number]) [facility] CBC WITH DIFF 2022-02-19 14:26:00 Trice Harris [facility] URINALYSIS 2022-02-19 14:26:00 Trice Harris [facility] CONSENT/REFUSAL FOR 2022-02-19 14:11:01 Doctor Unassigned, [facility] DIAGNOSIS AND TREATMENT [facility] POCT MOLECULAR FLU 2021-11-29 22:46:00 Mohan Ameena [facility] INS INFUS DEV LT BASILIC 2020-03-15 00:00:[address] [facility] VN PERQ [facility] (LUF/DAVID/SA) ULTRASONOGRAPHY LT UP EXT 2020-03-15 00:00:[address] [facility] VNS GUID [facility] (LUF/DAVID/SA) ROBOTIC LAP LYSIS OF 2020-03-02 12:56:[address] [facility] ADHESIONS [facility] (LUF/DAVID/SA) LAPAROSCOPY ENTEROLYSIS 2020-03-02 00:00:[address] [facility] SEPARATE PROCEDU [facility] (LUF/DAVID/SA) COLONOSCOPY FLX DX W/COLLJ 2020-02-26 00:00:[address] [facility] SPEC WHEN PFR [facility] (LUF/DAVID/SA) ROBOTIC RIGHT OOPHORECTOMY 2019-03-21 17:09:[address] [facility] LUF (Right) [facility] (LUF/DAVID/SA) CYSTO RGP STENT PLACEMENT 2015-04-20 14:01:[address] [facility] LUF [facility] (LUF/DAVID/SA) CYSTO RGP STENT PLACEMENT 2015-04-20 14:01:[address] [facility] LUF [facility] (LUF/DAVID/SA) [facility]) Total thyroidectomy [facility] (LUF/DAVID/SA) [facility]) ABDOMINAL ADHESIONS [facility] REMOVED [facility] (F/DAVID/SA) Extracorporeal shockwave [facility] lithotripsy [facility] ([facility]/SA) MULTIPLE CYSTECTOMYS DONE [facility] (F/DAVID/SA) MULTIPLE CYSTECTOMYS DONE [facility] (F/DAVID/SA) ABDOMINAL ADHESIONS [facility] (F/DAVID/SA) Appendectomy [facility] ([facility]/SA) Plan of Care Planned Activity Planned Date [...] Facility Department ID 2021-07-27 Outpatient Nba, STLMLC STLC Common 08:27:02 Josué 0127 [facility] 2021-07-26 Outpatient Nba, STLMLC STLMLC Common 14:20:31 Josué 1203 [facility] 2021-07-26 Outpatient Nba, STLMLC STLMLC Common 14:05:52 Josué 1027 [facility] 2021-07-26 Outpatient Nba, STLMLC STLMLC Common 12:01:28 Josué 1103 [facility] 2021-07-26 Outpatient Nba, STLMLC STLMLC Common 11:56:42 Josué 1019 [facility] 2021-07-26 Outpatient Nba, STLMLC STLMLC Common 11:49:38 Josué 0928 [facility] 2021-07-26 Outpatient Nba, STLMLC STLMLC Common 11:48:02 Josué 0922 [facility] 2021-07-26 Outpatient Nba, STLMLC STLMLC Common 11:47:47 Josué 0921 [facility] 2021-07-26 Outpatient JEANA Arango [facility] Common 11:42:15 Josué 0901 [facility] 2021-07-26 Outpatient JEANA Arango [facility] Common 11:32:09 Josué 0720 [facility] 2022-05-13 2022-05-13 Outpatient IRVINIngrid_Vita AO AO [id number] Adelia 00:00:00 00:00:00 Jhon [id number] [facility] 2022-05-07 2022-05-07 Emergency X EJ, [facility] ERT [id number] Univers 07:57:00 09:45:00 RIDGE [facility] 2022-05-07 2022-05-07 Emergency [facility] [id number] Univers 07:57:00 09:45:00 Ridge GAONA 350.1.13.10 i ty of [place] 4.2.7.2.686 [facility] [id number] [address] 2022-05-07 2022-05-07 Outpatient SANTINODevanIngridDevanVita AO AO [id number] Adelia 00:00:00 00:00:00 Jhon [id number] [facility] 2022-04-23 2022-04-23 Emergency EM PACO Quintero [id number] [facility] 09:39:00 10:55:00 Truman [facility] 2022-02-19 2022-02-19 Emergency X HARRIS, [facility] ERT [id number] Univers 09:15:00 11:05:00 TRICE melo [facility] 2022-02-19 2022-02-19 Emergency [facility] 1.2.840.114 [id number] Univers 09:15:00 11:05:00 Trice GAONA 350.1.13.10 i ty of [place] 4.2.7.2.686 [facility] [id number] [address] 2021-11-29 2021-11-29 [facility] [place], [facility] 1.2.840.114 [id number] Univers 17:40:00 18:00:[address] [facility] 350.1.13.10 it y of [place] 4.2.7.2.686 Jacques as SUE?BLEA [id number] Md jada [address] MEDICAL OFFICE BUILDING 2021-11-29 2021-11-29 Outpatient Irwin [facility] [id number] Univers 17:40:00 17:40:00 AMEENA ity [facility] 2021-11-29 2021-11-29 Outpatient Irwin [facility] [id number] Univers 17:40:00 17:40:00 [facility] 2021-10-26 2021-10-26 Office GEOVANI Blas, 1.2.840.1 [id number] Univers 09:45:00 10:47:06 Visit Praveen 32450.1.1 ity of 3.412.2.7 [place] .3.813631 MD Diaz [facility] 2021-10-26 2021-10-26 Office Shiva 1.2.840.1 [id number] Univers 09:45:00 10:47:06 Visit Praveen 96336.1.1 ity of 3.412.2.7 [place] .3.589033 MD Diaz [facility] 2021-10-26 2021-10-26 Travel 1.2.840.1 1.2.833.120 [id number] Univers 00:00:00 00:00:00 08417.1.1 350.1.13.41 ity of 3.412.2.7 2.[place]7.3.698 [place] .3.641095 084.8 MD Diaz [facility] 2021-10-26 2021-10-26 Travel 1.2.840.1 1.2.448.335 [id number] Univers 00:00:00 00:00:00 65625.1.1 350.1.13.41 ity of 3.412.2.7 2.[place]7.3.698 [place] .3.457912 084.8 .8 [facility] 2021-10-15 2021-10-15 JAYLANER 1 SHAMAA, [facility] [id number] 22:25:00 22:45:00 CONSCIOUS EKTA UNION STAR Luke [facility], Memor ia [address] ([address], V/SA) [place] [address] 2021-10-15 2021-10-15 Inpatient [facility] [id number] [facility] 00:[facility]:00 00:00:00 UNION STAR [id number] [facility], [id number] Memor ia [id number] (LUF/LI A[address], V/SA) [place] [address] 2021-10-15 2021-10-15 Inpatient [facility] [id number] 00:00:00 00:00:00 UNION STAR [id number] [facility], [id number] Memor ia [address] [id number] l [address] (LUF/LI A[address], V/SA) [place] [address] 2021-08-29 2021-08-29 Outpatient Irwin CARRANZA [facility] [id number] Univers 16:20:00 16:20:00 PATRICK [facility] 2021-08-07 2021-08-07 Emergency CHASTITY Clements [facility] [id number] [facility] 09:36:00 12:55:00 Olga 19 [facility] 2021-08-01 2021-08-02 Emergency X [facility] ERT [id number] Univers 22:00:00 01:17:00 LEANNE [facility] 2021-08-01 2021-08-02 Emergency [facility] 1.2.829.041 [id number] Univers 22:00:00 01:17:00 Leanne GAONA 350.1.13.10 i ty of [place] 4.2.7.2.686 [facility] [id number] [address] 2021-06-28 2021-06-28 Outpatient R SIRISHA [facility] [id number] Univers 17:30:00 17:30:00 SHARA ity [facility] 2021-06-22 2021-06-22 Letter REHAN Chaves 1.2.840.114 [id number] Univers 00:00:00 00:00:00 (Out) Eve Henok LEE 350.1.13.10 it y of HOSPITAL 4.2.7.2.686 Jacques as [id number] [address] 2021-06-22 2021-06-22 Refill [facility] 1.2.840.114 [id number] Univers 00:00:00 00:00:00 Rania HEALTH 350.1.13.10 it y of [place] 4.2.7.2.686 Jacques as SUE?BLEA [id number] [address] MEDICAL OFFICE [facility] 2021-06-21 2021-06-21 Outpatient R TERE [facility] [id number] Univers 11:00:00 12:14:12 [facility] 2021-06-21 2021-06-21 Urgent Patrick Carranza [facility] 1.2.840.114 [id number] Univers 11:00:00 11:20:00 Care Mohan Ameena HEALTH 350.1.13.10 ity of [place] 4.2.7.2.686 Jacques as SUE?BLEA [id number] [address] MEDICAL OFFICE [facility] 2021-06-21 2021-06-21 Telephone Tere [facility] 1.2.840.114 [id number] Univers 00:00:00 00:00:00 Rania HEALTH 350.1.13.10 it y of [place] 4.2.7.2.686 Jacques as SUE?BLEA [id number] [address] MEDICAL OFFICE [facility] 2021-06-21 2021-06-21 Letter Doctor VAN 1.2.840.114 [id number] Univers 00:00:00 00:00:00 (Out) UnassROSA schmidt 350.1.13.10 ity of [place] [facility] 4.2.7.2.686 Jacques as [id number] [facility] [address] 2021-05-30 2021-05-30 (TEL) STLMLC STLC [id number] Co mmon 00:00:00 00:00:00 [facility] 2021-05-29 2021-05-29 (TEL) STLMLC STLMLC [id number] Co mmon 00:00:00 00:00:00 [facility] 2021-04-26 2021-04-26 (TEL) STLC STLC [id number] Co mmon 00:00:00 00:00:00 [facility] 2021-04-23 2021-04-[address] [facility] EMD [id number] [facility] [address] 00:46:00 02:08:[address] [facility] ABDOMINAL Memori a PAIN l (LUF/LI V/SA) 2021-04-23 2021-04-23 Inpatient [facility] [place] [id number] 00:00:00 00:00:00 UNION STAR [id number] [facility], [id number] Memor ia [address] [id number] l [place] (LUF/LI A[address], V/SA) [facility] [place] [address] 2021-04-23 2021-04-23 Inpatient [facility] [id number] 00:00:00 00:00:00 UNION STAR [id number] [facility], [id number] Memor ia [address] [id number] l [place] (LUF/LI A[address], V/[place]) [place] [address] 2021-03-24 2021-03-24 ANXIETY 1 COTTON, [facility] [id number] 10:25:00 12:27:00 JENNA REHAN [facility] UNSPECIFIE [place], Memor ia D [address] (LUF/LI [address], V/SA) [place] [address] 2021-03-24 2021-03-24 Inpatient [facility]871 [id number] [facility] 00:00:00 00:00:00 UNION STAR [id number] [facility], [id number] Memor ia [address] [id number] l [place] (LUF/LI A[address], V/SA) [place] ROSA [address] 2021-03-24 2021-03-24 Inpatient [facility] [id number] ff19-c [facility] 00:00:00 00:00:00 UNION STAR [id number] [facility], [id number] Memor ia [address] [id number] l [place] (LUF/[address], V/SA) [place] [address] 2021-03-23 2021-03-23 Orders Nofies, 1.2.840.1 [id number] Univers 00:00:00 00:00:00 Only Viktoriya Charlton 69386.1.1 ity of 3.412.2.7 [place] .[id number] MD .8 [facility] 2021-03-10 2021-03-10 UTI SITE E RODRICK, [facility] [id number] 10:29:00 13:50:00 NOT JUAN [facility], Memori a [address] ([address]F/LI [address], V/[place]) [place] [address] 2021-03-10 2021-03-10 Inpatient [facility] [id number] [id number] [facility] 00:00:00 00:00:00 UNION STAR [id number] [facility], [id number] Memor ia [address] [id number] l [place] (LUF/LI A[address], V/SA) [place] [address] 2021-03-10 2021-03-10 Inpatient [facility] 518c [id number] [facility] 00:00:00 UNION STAR [id number] [facility], [id number] [facility] [address] [id number] l [place] (LUF/LI A[address], V/SA) [place], [place] [address] 2021-02-23 2021-02-23 RIGHT E [facility] [id number] 08:15:00 12:44:00 LOWER [facility] [address] [place] ([address], V/SA) [place], [place] [address] 2021-02-23 2021-02-23 Inpatient [facility] [id number] [facility] 00:00:00 00:00:00 UNION STAR [id number] [facility], [id number] Memor ia [address] [id number] l [place] (LUF/LI [address], V/SA) [place] ROS[place] [address] 2021-02-23 2021-02-23 Inpatient [facility] [id number] 00:00:00 00:00:00 UNION STAR [id number] [facility], [id number] Memor ia [address] [id number] l [place] (LUF[address], V/SA) [place], [place] [address] 2021-01-10 2021-01-10 CALCULUS E JANIA, [facility] [id number] 00:21:00 03:06:00 OF KIDNEY SETH [facility] [address] [place] ([address], V/SA) [place], [place] [address] 2021-01-10 2021-01-10 Inpatient [facility] [id number] [facility] 00:00:00 00:00:00 UNION STAR [id number] [facility], [id number] Mem[facility] [address] [id number] l [place] ([address]F/LI A[address], V/[place]) [place] [address] 2021-01-10 2021-01-10 Inpatient [facility] deee [id number] [facility]:00 00:00:00 UNION STAR [id number] [facility], [id number] Memor ia [address] [id number] l [place] ([address]F/LI [address], V/[place]) [place] [address] 2020-12-27 2020-12-27 Emergency [facility] Zarina [id number] 00:00:00 00:00:[address] 2020-12-22 2020-12-22 Outpatient 3 LONI MURILLO TIC [id number] 09:00:00 09:00:00 SKYE [facility] (LUF/LI V/SA) 2020-12-13 2020-12-13 Emergency EM FRANKIE PerezKW AMPARO [id number] [facility] 01:53:00 06:36:00 Tangela 55 [facility] 2020-12-12 2020-12-12 RIGHT Jake COTTON, [facility] [id number] 12:33:00 14:00:00 LOWER [facility] PAIN [address] ([address], V/SA) [place] [address] 2020-12-12 2020-12-12 [facility]patient [facility] [id number] [facility] 00:00:00 00:00:00 UNION STAR [id number] [facility], [id number] Memor ia [address] [id number] l [place] (LUF/LI AVE, V/SA) [place] [address] 2020-12-12 2020-12-12 Inpatient [facility] 43ed [id number]-4 [facility] 00:00:00 00:00:00 UNION STAR [id number] [facility], [id number] Memor ia [address] [id number] l [place] (LUF/LI AVE, V/SA) [place] [address] 2020-12-08 2020-12-08 UNSPECIFLUC SOTOMAYOR, [facility] [id number] 09:44:00 12:26:00 D WYATT [facility], Memori a PAIN [address] (LUF/LI AVE, V/SA) [place] [address] 2020-12-08 2020-12-08 Inpatient [facility] 6a3f a794-[id number] [facility] 00:00:00 UNION STAR [id number] [facility], [id number] Memor ia [address] [id number] l [place] (LUF/LI AVE, V/SA) [place] [address] 2020-11-25 2020-11-25 UNSPECIFIE [facility] [id number] 00:13:00 00:30:00 D [facility] [place], Memori a PAIN [address] [place] (LUF/LI A[address], V/SA) [place] [address] 2020-11-25 2020-11-25 Inpatient [facility] 3041 db6a-[address] 00:00:00 00:00:00 UNION STAR [id number] [facility], [id number] Memor ia [address] [id number] l [place] (LUF/LI AVE, V/SA) [place] [address] 2020-11-25 2020-11-25 Inpatient [facility] a3eb ed11-a [facility] 00:00:00 00:00:00 UNION STAR [id number] [facility], [id number] Memor ia [address] [id number] l [place] (LUF/LI AVE, V/SA) [place] [address] 2020-11-21 2020-11-21 ENDOMETRIO 1 [facility] [id number] 07:14:00 09:53:00 SIS [facility] UNSPECIFIE [place], Memor ia D [address] [place] (LUF/LI A[address], V/SA) [place] [address] 2020-11-21 2020-11-21 Inpatient [facility] 90f0 [id number] 00:00:00 00:00:00 UNION STAR [id number] [facility], [id number] Memor ia [address] [id number] l [place] (LUF/LI AVE, V/SA) [place] [address] 2020-11-21 2020-11-21 Inpatient [facility] 3b21 [id number] 00:00:00 00:00:00 UNION STAR [id number]-[id number] [facility], [id number] Memor ia [address] [id number] l [place] (LUF/LI AVE, V/SA) [place], [place] [address] 2020-11-14 2020-11-14 GASTRITIS 1 LONI COTTON EMD [id number] [facility] [address] 09:27:00 14:37:00 UNS REHAN Dhaliwal WITHOUT Memoria BLEEDING l (LUF/LI V/SA) 2020-11-14 2020-11-14 Inpatient [facility] d4fe d3e2-5 [facility] 00:00:00 00:00:00 UNION STAR [id number] [facility], [id number] Memor ia [address] [id number] l [place] (LUF/LI AVE, V/SA) [place], [place] [address] 2020-11-14 2020-11-14 Inpatient [facility] 324e [id number]-b [facility] 00:00:00 00:00:00 UNION STAR [id number] [facility], [id number] Memor ia [address] [id number] l [place] (LUF/LI AVE, V/SA) [place], [place] [address] 2020-11-08 2020-11-08 OTHER E YURY, [facility] 04826 [id number] [facility] [address] 08:04:00 13:13:00 CHRONIC REHAN [facility], Memoria [address] [place] (LUF/LI AVE, V/SA) [place], [place] [address] 2020-11-08 2020-11-08 Inpatient [facility] 8079 b52c-c [facility] 00:00:00 00:00:00 UNION STAR [id number] [facility], [id number] Memor ia [address] [id number] l [place] (LUF/LI AVE, V/SA) [place], [place] [address] 2020-11-08 2020-11-08 Inpatient [facility] 0f07 dc59-[address] 00:00:00 00:00:00 UNION STAR [id number] [facility], [id number] Memor ia [address] [id number] l [place] (LUF/LI AVE, V/SA) [place] [address] 2020-11-08 2020-11-08 Inpatient [facility] 40b4 e14c-[address] 00:00:00 00:00:00 UNION STAR [id number] [facility], [id number] Memor ia [address] [id number] l [place] (LUF/LI AVE, V/SA) [facility] 2020-11-01 2020-11-01 NAUSEA E WANDA, [facility] [id number] 00:27:00 03:55:00 WITH CLEMENT [facility], [facility] UNSPECIFIE [address] l D [place] (LUF/LI AVE, V/SA) [facility] [address] 2020-11-01 2020-11-01 Inpatient [facility] 1ec3 64c1-c [facility] 00:00:00 00:00:00 UNION STAR [id number] [facility], [id number] Memor ia [address] [id number] l [place] (LUF/LI AVE, V/SA) [place] [address] 2020-11-01 2020-11-01 Inpatient [facility] 79c0 [id number] 00:00:00 00:00:00 UNION STAR [id number] [facility], [id number] Memor ia [address] [id number] l [place] (LUF/LI AVE, V/SA) [place] [address] 2020-10-04 2020-10-05 OTHER E RODRICK, [facility] [id number] 23:32:00 01:00:00 CHRONIC JUAN [facility] [address] (LUF/LI AVE, V/SA) [place] [address] 2020-10-04 2020-10-04 Inpatient [facility] b016 f3f5-a [facility] 00:[facility]:00 00:00:00 UNION STAR [id number] [facility], [id number] Memor ia [address] [id number] l [place] (LUF/LI AVE, V/[place]) [place] [address] 2020-10-04 2020-10-04 Inpatient [facility] ea96 [id number] 00:00:00 00:00:00 UNION STAR [id number] [facility], [id number] Memor ia [address] [id number] l [place] (LUF/LI AVE, V/SA) [place] [address] 2020-09-18 2020-09-18 OTHER E [facility] [id number] 01:00:00 04:44:00 CHRONIC UNION STAR [facility] PAIN [place], Memoria [address] (LUF/LI AVE, V/SA) [place] [address] 2020-09-18 2020-09-18 Inpatient [facility] b80a 7ee5-[address] 00:00:00 00:00:00 UNION STAR [id number] [facility], [id number] Memor ia [address] [id number] l [place] (LUF/LI AVE, V/SA) [place] [address] 2020-09-18 2020-09-18 Inpatient [facility] 1a33 0198-a [facility] 00:[facility]:00 00:00:00 UNION STAR [id number] [facility], [id number] Memor ia [address] [id number] l [place] (LUF/LI AVE, V/SA) [place] [address] 2020-09-12 2020-09-12 ENDOMETRIO E KOSCIUK, [facility] [id number] [facility] 00:46:00 02:38:00 SIS JUAN [facility] [place]PECIFIE [place], Memor ia D [address] (LUF/LI AVE, V/SA) [place] [address] 2020-09-12 2020-09-12 Inpatient [facility] 726d 153b-a [facility] 00:[facility]:00 00:00:00 UNION STAR [id number] [facility], [id number] Memor ia [address] [id number] l [place] (LUF/LI AVE, V/[place]) [place] [address] 2020-09-12 2020-09-12 Inpatient [facility] 9a2d b59c-c [facility] 00:[facility]:00 00:00:00 UNION STAR [id number] [facility], [id number] Memor ia [address] 655cce l [place] (LUF/LI AVE, V/SA) [place] [address] 2020-08-22 2020-08-22 OTHER E SANANAVDEEP, [facility] [id number] 01:13:00 03:24:00 CHRONIC [facility] [address] [place] (LUF/LI AVE, V/SA) [place] [address] 2020-08-22 2020-08-22 Inpatient [facility] 7a1d [id number] 00:00:00 00:00:00 UNION STAR [id number] [facility], [id number] Memor ia [address] [id number] l [place] (LUF/LI AVE, V/SA) [place] [address] 2020-08-22 2020-08-22 Inpatient [facility] [id number] 2542-f [facility] 00:[facility]:00 00:00:00 UNION STAR [id number]-[id number] [facility], [id number] Memor ia [address] [id number] l [place] (LUF/LI AVE, V/SA) [place] [address] 2020-08-06 2020-08-06 Inpatient Jake HOODNAVDEEP, [facility] [id number] 01:21:00 03:35:00 [facility] [address] (LUF/LI AVE, V/SA) [place] [address] 2020-08-06 2020-08-06 Inpatient [facility] 07b7 067c-a [facility] 00:[facility]:00 00:00:00 UNION STAR [id number] [facility], [id number] Memor ia [address] [id number] l [place] (LUF/LI AVE, V/[place]) [place] [address] 2020-07-19 2020-07-19 RIGHT Jake COTTON, [facility] 95634 [id number] [facility] 07:50:00 11:20:00 [facility], Memoria PAIN [address] (LUF/LI AVE, V/SA) [place] [address] 2020-07-19 2020-07-19 Inpatient [facility] 625d 6050-c [facility] 00:00:00 00:00:00 UNION STAR [id number] [facility], [id number] Memor ia [address] [id number] l [place] (LUF/LI AVE, V/SA) [place] [address] 2020-07-19 2020-07-19 Inpatient [facility] 0f28 [id number] [facility] 00:00:00 00:00:00 UNION STAR [id number] [facility], [id number] Memor ia [address] [id number] l [place] (LUF/LI A[address], V/[place]) [place] [address] 2020-07-05 2020-07-05 OTHER Jake MENSAH, [facility] [id number] 02:42:00 05:00:00 CHRONIC JUAN [facility], Memoria [address] ([address]F/LI A[address], V/SA) [place] [address] 2020-07-05 2020-07-05 Inpatient [facility] 525e 4189-f [facility] 00:00:00 00:00:00 UNION STAR [id number] [facility], [id number] Memor ia [address] 7ec68b l [address] (LUF/LI A[address], V/[place]) [place] [address] 2020-07-05 2020-07-05 Inpatient [facility] c54b [id number]-e [facility]:00 00:00:00 UNION STAR [id number] [facility], [id number] Memor ia [address] [id number] l [address] (LUF/LI AVE, V/[place]) [place] [address] 2020-06-10 2020-06-10 (TEL) STLMLC STLMLC [id number] Co mmon 00:00:00 00:00:00 [facility] [place] 2020-06-07 2020-06-07 Inpatient 1 YURY, [facility] [place] [address] [id number] [facility] 12:56:00 19:04:00 [facility] [address] (LUF/LI AVE, V/SA) [place] [address] 2020-06-07 2020-06-07 Inpatient [facility] 5603 [id number] [facility] 00:00:00 00:00:00 UNION STAR [id number] [facility], [id number] Memor ia [address] [id number] l [place] (LUF/LI AVE, V/SA) [place] [address] 2020-05-31 2020-05-31 Inpatient E YURY, [facility] [place] [id number] 09:31:00 14:13:00 [facility] [address] (LUF/LI AVE, V/SA) [place] [address] 2020-05-10 2020-05-10 Outpatient STLMLC STLMLC [id number] Common 00:00:00 00:00:00 [facility] [place] 2020-05-09 2020-05-09 Outpatient STLMLC STLMLC [id number] Common 00:00:00 00:00:00 [facility] [place] 2020-05-05 2020-05-05 Outpatient STLMLC STLMLC [id number] Common 00:00:00 00:00:00 [facility] [place] 2020-05-02 2020-05-02 Outpatient STLMLC STLMLC [id number] Common 00:00:00 00:00:00 [facility] [place] 2020-05-02 2020-05-02 Outpatient STLMLC STLMLC [id number] Common 00:00:00 00:00:00 [facility] [place] 2020-04-29 2020-04-29 Outpatient STLMLC STLMLC [id number] Common 00:00:00 00:00:00 [facility] [place] 2020-04-25 2020-04-25 LEFT LOWER E [facility] [id number] 16:46:00 21:30:00 QUADRANT [facility] [address] [place] ([address]F/LI A[address], V/SA) [place] ROSA [address] 2020-04-22 2020-04-22 Outpatient STLMLC STLMLC [id number] Common 00:00:00 00:00:00 [facility] [place] 2020-04-20 2020-04-20 PROC&TX [facility] [id number] 15:39:00 16:03:00 NOT [facility] CARRIED [facility] OUT PT [address] LEAVE [place] (LUF/LI AVE, V/SA) [place] ROS[place] [address] 2020-04-20 2020-04-20 Outpatient STLMLC STLMLC [id number] Common 00:00:00 00:00:00 [facility] [place] 2020-04-20 2020-04-20 Outpatient STLMLC STLMLC [id number] Common 00:00:00 00:00:00 [facility] [place] 2020-04-15 2020-04-15 Outpatient STLMLC STLMLC [id number] Common 00:00:00 00:00:00 [facility] [place] 2020-04-13 2020-04-13 Outpatient STLMLC STLMLC [id number] Common 00:00:00 00:00:00 [facility] [place] [facility] 2020-04-12 2020-04-12 Outpatient STLMLC STLMLC [id number] Common 00:00:00 00:00:00 [facility] [place] [facility] 2020-04-11 2020-04-11 Outpatient STLMLC STLMLC [id number] Common 00:00:00 00:00:00 [facility] [place] [facility] 2020-04-08 2020-04-08 Outpatient STLMLC STLMLC [id number] Common 00:00:00 00:00:00 [facility] [place] [facility] 2020-04-06 2020-04-06 Outpatient STLMLC STLMLC [id number] Common 00:00:00 00:00:00 [facility] [place] [facility] 2020-04-04 2020-04-04 Outpatient STLMLC STLMLC [id number] Common 00:00:00 00:00:00 [facility] 2020-03-31 2020-03-31 Outpatient STLMLC STLMLC [id number] Common 00:00:00 00:00:00 [facility] 2020-03-29 2020-03-29 Outpatient GEOVANI BLAS MDA MDA [id number] MD 00:00:00 00:00:00 PRAVEEN payton 2020-03-29 2020-03-29 Outpatient STLMLC STLMLC [id number] Common 00:00:00 00:00:00 [facility] 2020-03-28 2020-03-28 Outpatient STLMLC STLMLC [id number] Common 00:00:00 00:00:00 [facility] [place] [facility] 2020-03-22 2020-03-22 Outpatient STLMLC STLMLC [id number] Common 00:00:00 00:00:00 [facility] 2020-03-21 2020-03-21 Outpatient STLMLC STLMLC [id number] Common 00:00:00 00:00:00 [facility] 2020-03-20 2020-03-20 FEDE COTTON, [facility] [id number] 17:08:00 22:56:00 ABDOMINAL REHAN UNION STAR Luke s PAIN [facility] UNSPECIFIE [address] Chin MEHTA (LUF/LI AVE, V/[place]) [place] [address] 2020-03-14 2020-03-17 CELLULITIS E TRUX, [facility] [id number] 14:54:00 11:30:00 OF EVANGELICAL UNION STAR Luke s [place]OM[place]AL [place], [facility] a WALL [address] (LUF/LI A[address], V/SA) [place] [address] 2020-03-03 2020-03-03 Outpatient [facility] [id number] Common 13:33:00 13:33:00 Clinics [facility]ics [facility] 2020-03-02 2020-03-02 FE RYAN WOLFE, [facility] [id number] 05:58:00 15:35:00 PERITON LIZBETH [facility] POSTINFECT [address] KIERAN [place] (LUF/LI AVE, V/SA) [facility] [address] 2020-03-02 2020-03-02 [facility] [id number] Common 00:00:00 00:00:00 [facility] 2020-03-01 2020-03-01 Outpatient [facility] [id number] Common 09:15:00 09:15:00 [facility] 2020-02-29 2020-02-29 Outpatient [facility] [id number] Common 09:30:00 09:30:00 [facility] 2020-02-25 2020-02-27 LOWER E YURY, [facility] [place] [id number] 13:21:00 12:09:00 ABDOMINAL [facility] UNSPECIFIE [address] D [address] (LUF/LI AVE, V/SA) [place] [address] 2020-02-25 2020-02-25 UNSPECIFIE E RODRICK, [facility] [id number] [facility] 00:40:00 05:00:00 D JUAN [facility] a PAIN [address] (LUF/LI AVE, V/SA) [place] [address] 2020-01-25 2020-01-25 LOW BACK 1 COTTON, [facility] [place] 805530 [id number] [facility] 11:28:00 13:15:00 PAIN REHAN [facility] [address] ([address]F/LI A[address], V/SA) [place] [address] 2020-01-18 2020-01-18 Outpatient [facility] [id number] Common 11:45:00 11:45:00 [facility] 2019-12-09 2019-12-09 OTHER E [facility] [id number] 03:03:00 05:08:00 CHRONIC [facility] [place] Memoria [address] (LUF/LI A[address], V/[place]) [place] [address] 2019-11-24 2019-11-24 UNSPECIFIE E [facility] [place] [id number] 00:31:00 05:30:00 D [facility] ABDOM[place]AL [place], Memori a PAIN [address] (LUF/LI AVE, V/SA) [place] [address] 2019-10-07 2019-10-07 RIGHT 1 YURY, [facility] [place] [address] 20:35:00 23:10:00 LOWER [facility] QUADRANT [place], Memoria PAIN [address] (LUF/LI AVE, V/SA) [place] [address] 2019-09-20 2019-09-20 RIGHT 1 YURY, [facility] [place] [id number] 00:33:00 04:23:00 LOWER [facility] QUADRANT [place], Memoria PAIN [address] (LUF/LI AVE, V/SA) [place] [address] 2019-08-17 2019-08-17 UNSPECIFIE 1 RIVERA, [facility] [place] [id number] 02:18:00 04:45:00 D EVANGELICAL [facility] s ABDOMINAL [place], Memori a PAIN [address] (LUF/LI AVE, V/SA) [place] [address] 2019-04-22 2019-04-22 Outpatient [facility] [id number] Common 12:03:00 12:03:00 Clinics [facility] 2019-04-14 2019-04-14 Outpatient [facility] [id number] Common 16:12:00 16:12:00 Clinics [facility] 2019-04-06 2019-04-06 Outpatient [facility] [id number] Common 12:16:00 12:16:00 Clinics [facility] 2019-03-31 2019-03-31 Outpatient [facility] [id number] Common 14:00:00 14:00:00 Clinics [facility] 2018-12-07 2018-12-07 UNSPECIFIE 1 DARYLYANNICKQUINTIN [facility] [id number] [facility] 01:06:00 04:45:00 D OVARIAN UNION STAR Luke s CYST RIGHT [facility] ia SIDE [address] ([address]F/LI A[address], V/SA) [place] [address] 2018-10-29 2018-10-29 N-PRSS CHR BLAKESTAD, [facility] [id number] [facility] St 06:59:00 23:59:00 [facility] [address] ([address]F/LI A[address], V/SA) [facility] [address] 2018-10-22 2018-10-22 N-PRSS CHR BLAKESTAD, [facility] [id number] [facility] 07:20:00 23:59:00 [facility] [address] (LUF/LI A[address], V/SA) [place] [address] 2018-10-15 2018-10-15 N-PRSS CHR O BLAKESTAD, [facility] [id number] [facility] St 07:08:00 23:59:00 ULCR SKIN [facility]KY [facility] [address] (LUF/LI A[address], V/SA) [place] [address] 2018-09-30 2018-10-01 INFCT FOL 1 SHABNAM, [facility] [id number] [facility] St 18:46:00 01:05:00 PRC SUPF DIMAS UNION STAR [facility] SIT INIT [address] ([address]/LI A[address], V/SA) [facility] [address] 2018-09-01 2018-09-01 OTH 1 WANDA, [facility] 80898 [id number] [facility] 09:12:00 14:00:00 NONINFL CLEMENT [facility] D/O OVARY [place], Memori a TUBE&BRD [address] LIG [address] (LUF/LI A[address], V/SA) [place] [address] 2018-05-13 2018-05-13 Inpatient 1 WANDA, [place] [address] [id number] [facility] [address] 10:52:00 13:46:00 CLEMENT [facility], Memoria [address] ([address]F/LI [address], V/SA) [place] [address] 2017-12-24 2017-12-24 UNSPECIFIE 1 QUINTIN BRITO [place] [id number] [facility] St 07:51:00 13:52:00 D OVARIAN [facility] s CYST RIGHT [place], [facility] SIDE [address] ([address]F/LI A[address], V/SA) [place] [address] 2017-06-20 2017-06-21 HYDRONPHRO 1 RODRICK, [facility] [id number] [facility] [address] 23:01:00 03:55:00 S JUAN [facility] RENL&URETR [place], [facility] L CALCUL [address], V/SA) [place] [address] 2017-05-13 2017-05-13 OTHER 3 MERLE, [facility] [place] [id number] [facility] [address] 15:40:00 23:59:00 FATIGUE ASA [facility] [address], V/SA) [place] [address] Results Test Description Test Time Test Comments Results Result [facility] e Comments - XR SHOULDER 2 + 2022-04-23 V LT 16:42:00 [facility] 1985 Sex: F Patient Name: LAUREN BETH Unit No: [id number] EXAMS: CPT CODE: [id number] XR SHOULDER 2 + [place] [address] Left shoulder 3 views COMMENT: There is no evidence for fracture or subluxation. No focal bony lesions are seen. at 1642 Reported and signed by: Angelo Hardin MD CC: Truman Quintero MD Technologist: Jeannette Garcia RT.(R) Transcribed D/ (1641) tMAYCO [facility] NAME: LAUREN BETH [address] PHYS: Truman Alfaro MD : 1985 AGE: 36 SEX: F [place] [address] LOC: JOHNNIE PHONE #: [phone] EXAM DATE: 04/23/2022 STATUS: DEP ER FAX #: [phone] RAD #: D/C DT PAGE 1 Signed Report Patient Name: LAUREN BETH Unit No: [id number] EXAMS: CPT CODE: [id number] XR SHOULDER 2 + [place] [address] (Continued) Orig Print D/T: S: 04/23/2022 (1644) [facility] NAME: DIEUDONNE BETH[address] PHYS: Truman Alfaro MD : 1985 AGE: 36 SEX: F [place] [address] LOC: JOHNNIE PHONE #: [phone] EXAM DATE: 04/23/2022 STATUS: DEP ER FAX #: [phone] RAD #: D/C DT PAGE 2 Signed Report COMP. METABOLIC PANEL (21575) 2022-02-19 14:56:05 Test Item Value Reference Range Interpretation Comme nts NA (test code = 0197456122) 137 mmol/L 135-145 K (test code = 4705533580) 4.2 mmol/L 3.5-5 CL (test code = 0417722933) 108 mmol/L 98-108 CO2 TOTAL (test code = 8846129099) 19 mmol/L 23-31 L AGAP (test code = 9293764193) 2-16 BUN (test code = 8504041851) 14 mg/dL 7-23 GLUCOSE (test code = 2501661423) 133 mg/dL 70-110 H CREATININE (test code = 0.56 mg/dL 0.5-1.04 7674510510) TOTAL BILI (test code = 0.4 mg/dL 0.1-1.7 8500804841) CALCIUM (test code = 5962945688) 8.9 mg/dL 8.6-10.6 T PROTEIN (test code = 7536697112) 6.5 g/dL 6.3-8.2 ALBUMIN (test code = 3020656266) 4.0 g/dL 3.5-5 ALK PHOS (test code = 0258801517) 84 U/L 34-122 ALTv (test code = 1742-6) 23 U/L 5-35 AST(SGOT) (test code = 8198186767) 24 U/L 13-40 eGFR (test code = 2982550612) mL/min/1.73m2 RENZO (test code = RENZO) Association [...] tests). Lab Interpretation (test code = Abnormal 95537-1) [facility] Test Item Value Reference Range Interpretation Comments LIPASE (test code = 6855623868) 81 U/L 0-220 Lab Interpretation (test code = Normal 13136-4) [facility] WITH [id number] 14:36:26 Test Item Value Reference Range Interpretation Comments WBC (test code = See_Comment [Automated 0590-2) message] The sy stem which generated this result transmitted reference range : 4.30 - 11.10 10*3/?L. The reference range was not used to interpret this result as normal/abnormal . RBC (test code = See_Comment [Automated 854-8) message] The sy stem which generated this [...] RDW-SD (test code = 43.9 fL 39-49.9 23931-2) RDW-CV (test code = 13.7 % 12-15.5 788-0) PLT (test code = See_Comment [Automated 177-3) message] The sy stem which generated this result transmitted reference range : 166 - 358 10*3/ ?L. The reference r bruce was not used to interpret this result as normal/abnormal . MPV (test code = 8.5 fL 9.5-12.9 L 57338-9) NRBC/100 WBC (test See_Comment [Automat ed code = 5503306395) message] The system which generated this result transmitted reference range : 0.0 - 10.0 /100 WBCs. The refer ence range was not u sed to interpret th is result as normal/abnormal . NRBC x10^3 (test code See_Comment [Auto mated = 1231487923) message] The s ystem which generated this result transmitted reference range : 10*3/?L. The reference range was not used to interpret this result as normal/abnormal . GRAN MAT (NEUT) % 58.7 % (test code = 770-8) IMM GRAN % (test code 1.10 % = 0378002888) LYMPH % (test code = 31.6 % 736-9) MONO % (test code = 6.8 % 5905-5) EOS % (test code = 1.4 % 713-8) BASO % (test code = 0.4 % 706-2) GRAN MAT x10^3(ANC) 3.30 10*3/uL 1.88-7.09 (test code = 2517732103) IMM GRAN x10^3 (test 0.06 10*3/uL 0-0.06 code = 5409517183) LYMPH x10^3 (test code 1.77 10*3/uL 1.32-3.29 = 731-0) MONO x10^3 (test code 0.38 10*3/uL 0.33-0.92 = 742-7) EOS x10^3 (test code = 0.08 10*3/uL 0.03-0.39 711-2) BASO x10^3 (test code 0.01-0.07 = 704-7) Lab Interpretation Abnormal (test code = 64403-6) [facility] MOLECULAR [id number] 22:58:14 Test Item Value Reference Range Interpretation Comments POCT Molecular FluA (test code = Negative Negative 20264-7) POCT Molecular FluB (test code = Negative Negative 09145-7) Lab Interpretation (test code = Normal 24862-4) [facility])2021-10-16 13:57:00 Test Item Value [...] (test code = 0.2 mg/dl 0.0-1.1 IBIL) [id number] 13:57:00 Test Item Value Reference Range Interpretation Comments Lipase (test code = LIPA) 114 U/L 73-393 STLAMYLASE, [id number] 13:57:00 Test Item Value Reference Range Interpretation Comments Amylase (test code = AMYL) 51 U/L 25-115 STLSTAT LAB CHEM [id number] 22:45:00 Test Item Value Reference Range Interpretation [...] code = CO2) 22.1 mmol/l 24.0-29.0 L [facility] CBC WITH AUTO [id number] 22:43:00 Test Item Value Reference Range Interpretation [...] = IG%) 0.2 % 0.0-0.4 STLMLHEPATIC FUNCTION [id number] 13:03:00 Test Item Value Reference Range Interpretation [...] 96 Unit/L 45-117 N code = ALKP) [id number] 13:03:00 Test Item Value Reference Range Interpretation Comments LIPASE (test code = LIP) 83 Unit/L 114-286 L BASIC METABOLIC [id number] 13:03:00 Test Item Value Reference Range Interpretation [...] 8.5-10.1 N UA RFLX MICR CULT IF [id number] 12:44:00 Test Item Value Reference Range Interpretation [...] OF URINE: CLEAN CATCH- CT ABD PELVIS W/[id number] 12:27:00 [facility] : 1985 Sex: F Name: LAUREN BETH [facility] : 1985 Age/S: 36 / F [address] Unit #: [id number]: Julián Holcomb [address] Phys: Marco Hilton NP Acct: [id number] Dis Date: Status: REG ER PHONE #: [phone] Exam Date: 08/07/2021 1223 FAX #: Reason: LLQ ABD PAIN EXAMS: CPT: [id number] CT ABD PELVIS W/CONT 23132 EXAM: CT ABDOMEN AND PELVIS WITH CONTRAST. INDICATION: Left lower quadrant pain COMPARISON: December 13, 2020 TECHNIQUE: Axial CT imaging of the abdomen and pelvis was obtained after the administration of intravenous contrast. Coronal and sagittal reformatted images were submitted for review. IV contrast: 100 mL of Isovue-300 DLP: 506.52 mGy-cm FINDINGS: The heart size is normal. The lungbases are clear. No pericardial or pleural effusion [...] 1 Signed Report (CONTINUED) Name: LAUREN BETH [facility] : 1985 Age/S: 36 / F [address] Unit #: [id number] Loc: [place], [id number] Phys: Marco Hilton NP Acct: [id number] Dis Date: Status: REG ER PHONE #: [phone] ExamDate: 08/07/2021 1223 FAX #: Reason: LLQ ABD PAIN EXAMS: CPT: [id number] CT ABD PELVIS W/CONT 12979 &l t;Continued> at 1227 Reported and signed by: Alma Cartwright M.D. CC: Olga Clements DO; Marco Hilton NP Technologist:RT Fortino(R) CTDI: DLP: Trnscb Date/Time: 08/07/2021 (1227) [email or web address] Orig Print D/T: S: 08/07/2021(1056) PAGE 2 Signed ReportCBC W/AUTO [id number] 12:23:00 Test Item Value Reference Range Interpretation [...] DIFF/SCN CRITERIA = MDIFF) CORONAVIRUS 2019 ([facility])2021-03-24 17:04:00 Test Item Value Reference Range Interpretation [...] contact the [facility] at [phone]. [id number] 12:37:00 Test Item Value Reference Range Interpretation [...] 0.5-1.3 code = CREA) EGFR if >60 [place] (test code mL/min/1.73m\\ = EGFRAA) S\\2 EGFR if Non- >60 Estimate d Glomerular [place] (test code mL/min/1.73m\\ Filtrat ion Rate (eGFR) [...] and management of c hronic kidney failure. [facility] [id number] 12:11:00 Test Item Value Reference Range Interpretation Comments Troponin-I (test 0.00 ng/ml 0.00-0.08 The [address] Pe rcentile URL is code = TROP) 0.08 ng/mL for the [employer] iStat Troponin I. The Joint Society of Cardiology/er [facility] College of Card iology (ESC/ACC) and t he National Academy of Clin ical Biochemistry and[facility] of Laboratory Prac tices (NACB) recommen [...] after the clini felipa event. STLMLPT AND [id number] 12:09:00 Test Item Value Reference Range Interpretation Comments Protime (test code 9.5 seconds 9.5-12.1 = PT) INR (test code = 0.9 0.9-1.1 INR results are intended INR) ONLY to monitor Oral Anticoagulant t herapy in stablized patie nts. The INR Therapeutic Range is 2.0 - 3.0 Patie nts with a mechanical he art, the INR Range is 2. 5 - 3.5 [id number] 12:09:00 Test Item Value Reference Range Interpretation Comments aPTT (test code = PTT) 22.3 seconds 23.9-30.7 L STLMLSTAT LAB CBC WITH AUTO [id number] 11:57:00 Test Item Value Reference Range Interpretation [...] 0.3 % 0.0-0.4 STLMLXR CHEST AP/PA 1 [id number] 11:33:32 [facility])Name: LAUREN BETH : 1985 Sex: FProcedure: XR CHEST AP/PA 1 VIEWOrder Date: 03/24/2021 10:57 AMOrdering Provider: REHAN COTTONClinical Indication: [id number]: DyspneaComparison: September 30, 2018Findings:Cardiac size is normal.Pulmonary vasculature is normal.Mediastinal contour is normal.Aortic contour is normal.No acute infiltrates or effusions.There is no mass or pneumothorax.There is no evidence of active tuberculosis.There isno acute skeletal abnormality.Impression: Negative AP view of the chest.This final report was electronically signed by Dr Farzad Dewitt MD :28 AMDictated By: FARZAD DEWITTDate: :28STLMLCULTURE, [id number] 08:00:00Specimen: Urine SpecimensCollected: 03/10/2021 11:50 Status: Final [...] code = NEGATIVE NEGATIVE N UKET) Specific [place] 1.015 1.005-1.030 A (test code = USPGR) Blood (test code = NEGATIVE NEGATIVE N UBLD) PH (test code = UPH) 7.0 4.5-8.0 A Protein (test code = NEGATIVE NEGATIVE N UPROT) Urobilinogen (test 0.2 See_Comment N [Automat ed message] code = U UROB) The system [employer] generated this result transmit michael reference range [...] = NSE) STLMLSTAT LAB CBC WITH AUTO [id number] 12:10:00 Test Item Value Reference Range Interpretation [...] code = IG%) 0.8 % 0.0-0.4 H [facility] LAB CHEM [id number] 12:08:00 Test Item Value Reference Range Interpretation [...] = CREA) 0.5 mg/dl 0.6-1.3 L STLMLCULTURE, [id number] 08:26:00Specimen: Urine SpecimensCollected: 02/23/2021 08:35 Status: Final Last Updated: 02/24/2021 08:26 CULTURE (Final) (Final) Many Mixed Body Gabriela Isolated No Pathogens IsolatedSTLMLCT ABDOMEN/PELVIS W/[id number] 11:40:43 [facility])Name: LAUREN BETH : 1985 Sex: FProcedure: CT ABDOMEN/PELVIS W/CONTRASTOrder date: 02/23/2021 10:08 AMOrdering Provider: REHAN Farrellinical Indication: [id number]: Right lower quadrant painComparison: November 14, 2020Technique: [...] MD 111:35 AMDictated By: WILEY VELÁZQUEZDate: 02/23/2021 11:[id number] 10:44:00 Test Item Value Reference Range Interpretation Comments Lipase (test code = LIPA) 86 U/L 73-393 STLMLURINALYSIS WITH [id number] 08:58:00 Test Item Value Reference Range Interpretation Comments Color (test code = Light-Yellow UCOLR) Clarity (test code = Clear UCLAR) Glucose (test code = NEGATIVE NEGATIVE N UGLUC) Bilirubin (test code NEGATIVE NEGATIVE N = UBILI) Ketones (test code = NEGATIVE NEGATIVE N UKET) Specific [place] 1.020 1.005-1.030 A (test code = USPGR) Blood (test code = NEGATIVE NEGATIVE N UBLD) PH (test code = UPH) 6.0 4.5-8.0 A Protein (test code = NEGATIVE NEGATIVE N UPROT) Urobilinogen (test 0.2 See_Comment N [Automat ed message] code = U UROB) The system [facility] generated this result transmit michael reference [...] 41-50 0-10 A (test code = SQEP) STLSTAT LAB CBC WITH AUTO [id number] 08:52:00 Test Item Value Reference Range Interpretation [...] (test code = IG%) 0.3 % 0.0-0.4 [facility] LAB CHEM [id number] 08:52:00 Test Item Value Reference Range Interpretation [...] (test code = CREA) 0.6 mg/dl 0.6-1.3 [facility] LAB CBC WITH AUTO [id number] 02:37:00 Test Item Value Reference Range Interpretation [...] A value of 55 was entered by [id number] on 01/10/2021 02:3 7 Lymphocytes (test 43 % 13-42 H No previou s value code = LYMPH) was reported. A value of 43 was entered by [id number] on 01/10/2021 02:3 7 Monocytes (test 1 % 4-14 L No previous value code = MONOS) was reported. A value of 1 was entered by [id number] on 01/10/2021 02:3 7 Basophils (test 1 % 0-1 No previous value code = BASO) was reported. A value of 1 was entered by [id number] on 01/10/2021 02:3 7 Normal Morphology Normal WBC RBC Normal RBC \\T\\ N No pre vious value (test code = NRCM) and Platelet WBC was repor michael. A Morphology Morphology,Normal value of N ormal WBC RBC and WBC RBC and Platelet Platelet Morphology Morphology was entered by [id number] on 01/10/2021 02:3 7 STLMLAMYLASE, [id number] 02:14:00 Test Item Value Reference Range Interpretation Comments Amylase (test code = AMYL) 46 U/L 25-115 [id number] 02:14:00 Test Item Value Reference Range Interpretation Comments Lipase (test code = LIPA) 115 U/L 73-393 STLMLURINALYSIS WITH [id number] 02:07:00 Test Item Value Reference Range Interpretation Comments Color (test code = Light-Yellow UCOLR) Clarity (test code = Cloudy UCLAR) Glucose (test code = NEGATIVE NEGATIVE N UGLUC) Bilirubin (test code NEGATIVE NEGATIVE N = UBILI) Ketones (test code = NEGATIVE NEGATIVE N UKET) Specific [place] 1.025 1.005-1.030 A (test code = USPGR) Blood (test code = NEGATIVE NEGATIVE N UBLD) PH (test code = UPH) 6.0 4.5-8.0 A Protein (test code = NEGATIVE NEGATIVE N UPROT) Urobilinogen (test 0.2 See_Comment N [Automat ed message] code = U UROB) The system [employer] generated this result transmit michael reference range [...] SEEN A Epithelial (test code = NSE) [facility] LAB CHEM [id number] 01:50:00 Test Item Value Reference Range Interpretation [...] (test code = CREA) 0.6 mg/dl 0.6-1.3 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 at 9275 Reported and signed by: Neo Huber MDPAGE 1 Signed Report (CONTINUED) FAX: Annemarie Tesfaye [phone] [place]: St: REG Name: LAUREN BETH [facility] : 1985 Age/S: 35/F [address] Unit: [id number] Loc: [place] [address] Phys: Annemarie Tesfaye NP Acct: [id number] Dis Date: Status: REG ER PHONE #: [phone] Exam Date: 12/13/2020 0325 FAX #: [phone] Reason: DIFFUSE ABD PAIN WORSE RLQ, HX APPY, ROSE EXAMS: CPT CODE: [id number] CT ABD PELVIS W/CONT 82301 <Continued> CC: Annemarie Tesfaye NP Technologist: PAMELA KRISHNAMURTHY; Jessi SANCHEZ JR Trnscrd Dt/Tm: 12/13/2020 (0346) [email or web address] Orig Print D/T: S: 12/13/2020 (0848 PAGE 2 Signed ReportCOMPREHENSIVE METABOLIC [id number] 03:32:00 Test Item Value Reference Range Interpretation [...] U/L 38-126 N (test code = ALKP) [id number] 03:32:00 Test Item Value Reference Range Interpretation Comments LIPASE (test code = LIP) 82 U/L 23-300 N BEDSIDE [id number] 03:24:00 Test Item Value Reference Range Interpretation Comments BEDSIDE CREATININE (test code = 0.60 mg/dL 0.51-1.19 N CREATBED) CBC W/AUTO [id number] 03:14:00 Test Item Value Reference Range Interpretation [...] 0.0-0.1 N UA RFLX MICR CULT IF [id number] 02:59:00 Test Item Value Reference Range Interpretation [...] OF URINE: VOIDEDSTAT LAB CBC WITH AUTO [id number] 15:12:00 Test Item Value Reference Range Interpretation [...] A value of 63 was entered by [employer] 82 on 12/12/2020 15:12 Bands (test code = 2 % 0-2 No previo us value BANDM) was reported. A value of 2 was entered by [employer] 82 on 12/12/2020 15:12 Lymphocytes (test 26 % 13-42 No previou s value code = LYMPH) was reported. A value of 26 was entered by [employer] 82 on 12/12/2020 15:12 Monocytes (test code 4 % 4-14 No prev ious value = MONOS) was reported. A value of 4 was entered by [employer] 82 on 12/12/2020 15:12 Eosinophils (test 2 % 1-3 No previou s value code = EOS) was reported. A value of 2 was entered by [employer] 82 on 12/12/2020 15:12 Atypical Lymphocyte 3 % No previ ous value (test code = ATPLYM) was rep orted. A value of 3 was entered by [employer] on 12/12/2020 15:12 [facility] LAB CHEM [id number] 14:08:00 Test Item Value Reference Range Interpretation [...] = CREA) 0.5 mg/dl 0.6-1.3 L [facility] LAB URINALYSIS WITHOUT [id number] 12:08:00 Test Item Value Reference Range Interpretation Comments Color (test code = Light-Yellow UCOLR) Clarity (test code = Cloudy UCLAR) Glucose (test code = NEGATIVE NEGATIVE N UGLUC) Bilirubin (test code NEGATIVE NEGATIVE N = UBILI) Ketones (test code = NEGATIVE NEGATIVE N UKET) Specific [place] 1.015 1.005-1.030 A (test code = USPGR) Blood (test code = NEGATIVE NEGATIVE N UBLD) PH (test code = UPH) 7.0 4.5-8.0 A Protein (test code = NEGATIVE NEGATIVE N UPROT) Urobilinogen (test 0.2 See_Comment N [Automat ed message] code = U UROB) The system [employer] generated this result transmit michael reference range : 0.2. The refere nce range was not u sed to interpret th is result as normal/abnormal . Nitrite (test code = NEGATIVE NEGATIVE N UNITR) Leukocyte Esterase NEGATIVE NEGATIVE N (test code = ULEUK) [facility] (LIVER)2020-11-21 08:43:00 Test Item [...] (test code = 0.4 mg/dl 0.0-1.1 IBIL) [facility]-fkinURINALYSIS WITH [id number] 08:31:00 Test Item Value Reference Range Interpretation Comments Color (test code = Light-Yellow UCOLR) Clarity (test code = Clear UCLAR) Glucose (test code = NEGATIVE NEGATIVE N UGLUC) Bilirubin (test code NEGATIVE NEGATIVE N = UBILI) Ketones (test code = NEGATIVE NEGATIVE N UKET) Specific [place] 1.020 1.005-1.030 A (test code = USPGR) Blood (test code = NEGATIVE NEGATIVE N UBLD) PH (test code = UPH) 6.5 4.5-8.0 A Protein (test code = NEGATIVE NEGATIVE N UPROT) Urobilinogen (test 0.2 See_Comment N [Automat ed message] code = U UROB) The system [employer] generated this result transmit michael reference range [...] 0-10 A (test code = SQEP) [facility] LAB CHEM [id number] 08:27:00 Test Item Value Reference Range Interpretation [...] = CREA) 0.5 mg/dl 0.6-1.3 L [facility] LAB CBC WITH AUTO [id number] 08:26:00 Test Item Value Reference Range Interpretation [...] (test code = IG%) 0.4 % 0.0-0.4 [facility] CenterkinXR ABDOMEN 2 VIEWS FLAT / [id number] 08:18:50[facility] ([facility]/[place])Name: LAUREN BETH : 1985 Sex: FProcedure: XR ABDOMEN 2 VIEWS FLAT / UPRIGHTOrder Date: 11/21/2020 7:43 AMOrdering Provider: REHAN COTTONClinical Indication: [id number]: Abdominal painComparison: Nov 14 2020Findings:Bowel gas pattern is non-obstructive. No pneumoperitoneum.There is moderate volume stool burden.Surgical clips in the right upper quadrant of the abdomen.Impression:Nonobstructive bowel gas pattern.This final reportwas electronically signed by Dr Silver Benitez MD :13 AMDictated By: GLORY BENITEZKDate: 11/21/2020 08:13[facility]/PELVIS W/O CONTRAST 2020-11-14 14:11:31 [facility] ([facility]/[place])Name: LAUREN BETH : 1985 Sex: FProcedure: CT ABDOMEN/PELVIS W/O CONTRASTOrder Date: 11/14/2020 1:22 PMOrdering Provider: BILLY ACOSTA .Clinical Indication: [id number]: Right flank painComparison: Renal ultrasound November 08, [...] MD 12:05 PMDictated By: FARZAD DEWITTDate: 11/14/2020 14:05[facility] , [id number] 13:31:00 Test Item Value Reference Range Interpretation Comments (Urine) (test code = Negative PREGU) ONLY AVAILABLE [address] [place] [address] LAB CHEM [id number] 11:09:00 Test Item Value Reference Range Interpretation [...] = CREA) 0.5 mg/dl 0.6-1.3 L [facility] LAB URINALYSIS WITHOUT [id number] 11:08:00 Test Item Value Reference Range Interpretation Comments Color (test code = Yellow Lt. Yellow A UCOLR) Clarity (test code = Clear UCLAR) Glucose (test code = Negative Negative N UGLUC) Bilirubin (test code Negative Negative N = UBILI) Ketones (test code = Negative Negative N UKET) Specific [place] 1.025 1.005-1.030 A (test code = USPGR) Blood (test code = Trace-intact Negative A UBLD) PH (test code = UPH) 6.0 4.5-8.0 A Protein (test code = Negative Negative N UPROT) Urobilinogen (test 0.2 See_Comment N [Automat ed message] code = U UROB) The system [facility] generated this result transmit michael reference range : 0.2. The refere nce range was not u sed to interpret th is result as normal/abnormal . Nitrite (test code = Negative Negative N UNITR) Leukocyte Esterase Negative Negative N (test code = ULEUK) [facility] LAB CBC WITH AUTO [id number] 11:05:00 Test Item Value Reference Range Interpretation [...] (test code = IG%) 0.4 % 0.0-0.4 [facility] InstitutekinCULTOCEANS BEHAVIORAL HOSPITAL BILOXI, [id number] 08:43:00Specimen: Urine SpecimensCollected: 11/08/2020 09:59 Status: Final Last Updated: 11/09/2020 08:43 CULTURE (Final) (Final) Few Mixed Body Gabriela Isolated No Pathogens [facility] RE[facility] & BLADDER (KIDNEYS)2020-11-08 12:00:28[facility] ([facility]/)Name: LAUREN BETH : 1985 Sex: FProcedure: US [...] AMDictated By: GLORY BENITEZKDate: 11/08/2020 11:54[facility] STARURINALYSIS WITH MICROSCOPIC 2020-11-08 10:58:00 Test Item Value Reference Range Interpretation Comments Color (test code = Yellow UCOLR) Clarity (test code = Clear UCLAR) Glucose (test code = NEGATIVE NEGATIVE N UGLUC) Bilirubin (test code = NEGATIVE NEGATIVE N UBILI) Ketones (test code = NEGATIVE NEGATIVE N UKET) Specific [place] (test 1.030 1.005-1.030 A code = USPGR) Blood (test code = NEGATIVE NEGATIVE N UBLD) PH (test code = UPH) 6.0 4.5-8.0 A Protein (test code = NEGATIVE NEGATIVE N UPROT) Urobilinogen (test code 0.2 See_Comment N [Au tomated message] = U UROB) The system [employer] generated this result transmitted ref erence range: [...] 51-74 0-10 A (test code = SQEP) [facility]-Zi, [id number] 08:13:00ER 17Specimen: Urine SpecimensCollected: 11/01/2020 01:10 Status: Final Last Updated: 11/02/2020 08:13 (1) ER 17 CULTURE (Final) (Final) Few Mixed Body Gabriela Isolated No Pathogens IsolatedFroedtert [facility] Hospital-LufkinXR ABD SERIES W/PA CXR 2020-11-01 03:48:37 [facility] ([facility]/[place])Name: LAUREN BETH : 1985 Sex: FPROCEDURE INFORMATION:Exam: [...] October:48 AM CDT.Dictated By: FILIPPO RAMOSDate: 11/01/2020 03:48[facility] STARHEPATIC FUNCTION PANEL (LIVER)2020-11-01 02:14:00 Test Item Value [...] (test code = 0.1 mg/dl 0.0-1.1 IBIL) [address] LAB CHEM [id number] 01:57:00 Test Item Value Reference Range Interpretation [...] = CREA) 0.5 mg/dl 0.6-1.3 L ER [address] [place] [address]-fkinURINALYSIS WITH [id number] 01:56:00 Test Item Value Reference Range Interpretation Comments Color (test code = Light-Yellow UCOLR) Clarity (test code = Clear UCLAR) Glucose (test code = 50 NEGATIVE A UGLUC) Bilirubin (test code NEGATIVE NEGATIVE N = UBILI) Ketones (test code = NEGATIVE NEGATIVE N UKET) Specific [place] 1.025 1.005-1.030 A (test code = USPGR) Blood (test code = NEGATIVE NEGATIVE N UBLD) PH (test code = UPH) 6.0 4.5-8.0 A Protein (test code = TRACE NEGATIVE A UPROT) Urobilinogen (test 0.2 See_Comment N [Automat ed message] code = U UROB) The system [facility] generated this result transmit michael reference [...] 41-50 0-10 A (test code = SQEP) [address] LAB CBC WITH AUTO [id number] 01:55:00 Test Item Value Reference Range Interpretation [...] (test code = IG%) 0.4 % 0.0-0.4 [address]HEP[address] FUNCTION PANEL (LIVER)2020-10-05 01:26:00 Test Item [...] (test code = 0.1 mg/dl 0.0-1.1 IBIL) [address]LIPASE2021-04-07 01:26:00 Test Item Value Reference Range Interpretation Comments Lipase (test code = LIPA) 154 U/L 73-[address] LAB CHEM [id number] 01:15:00 Test Item Value Reference Range Interpretation [...] (test code = CREA) 0.6 mg/dl 0.6-1.[address] LAB , [id number] 01:14:00 Test Item Value Reference Range Interpretation Comments (Urine) (test code = Negative PREGU) [address] LAB CBC WITH AUTO [id number] 01:13:00 Test Item Value Reference Range Interpretation [...] = IG%) 0.9 % 0.0-0.4 [address] [place], [place] [address]Tqguvp-[id number] 04:21:00 Test Item Value Reference Range Interpretation Comments Lipase (test code = LIPA) 146 U/L 73-[address] [facility]HEP[facility] FUNCTION PAN[facility] (LIVER)2020-09-18 04:21:00 Test Item [...] (test code = 0.1 mg/dl 0.0-1.1 IBIL) [facility] Medical CenterstefanieAMYLASE, [id number] 04:21:00 Test Item Value Reference Range Interpretation Comments Amylase (test code = AMYL) 47 U/L 25-115 [facility]-fkinURINALYSIS WITH [id number] 03:06:00 Test Item Value Reference Range Interpretation Comments Color (test code = Light-Yellow UCOLR) Clarity (test code = Clear UCLAR) Glucose (test code = NEGATIVE NEGATIVE N UGLUC) Bilirubin (test code NEGATIVE NEGATIVE N = UBILI) Ketones (test code = TRACE NEGATIVE A UKET) Specific [place] 1.025 1.005-1.030 A (test code = USPGR) Blood (test code = NEGATIVE NEGATIVE N UBLD) PH (test code = UPH) 5.5 4.5-8.0 A Protein (test code = NEGATIVE NEGATIVE N UPROT) Urobilinogen (test 0.2 See_Comment N [Automat ed message] code = U UROB) The system [employer] generated this result transmit michael reference range [...] A Epithelial (test code = NSE) [facility] LAB CHEM [id number] 02:51:00 Test Item Value Reference Range Interpretation [...] code = CREA) 0.6 mg/dl 0.6-1.3 [facility] LAB CBC WITH AUTO [id number] 02:50:00 Test Item Value Reference Range Interpretation [...] = IG%) 0.5 % 0.0-0.4 H [facility] ABDOMEN 1 VIEW (KUB)2020-09-12 01:51:21 [facility] ([facility])Name: LAUREN BETH : 1985 Sex: FPROCEDURE INFORMATION:Exam: [...] CDT.Dictated By: CELESTINO ALLENDate: 09/12/2020 01:50[facility] CBC WITH AUTO [id number] 01:29:00 Test Item Value Reference Range Interpretation [...] code = IG%) 0.4 % 0.0-0.4 [facility] LAB CHEM [id number] 01:28:00 Test Item Value Reference Range Interpretation [...] (test code = CREA) 0.6 mg/dl 0.6-1.3 [facility] InstitutekinURINALYSIS WITH [id number] 03:04:00 Test Item Value Reference Range Interpretation Comments Color (test code = Yellow UCOLR) Clarity (test code = Clear UCLAR) Glucose (test code = 100 NEGATIVE A UGLUC) Bilirubin (test code = NEGATIVE NEGATIVE N UBILI) Ketones (test code = TRACE NEGATIVE A UKET) Specific [place] (test >=1.030 1.005-1.030 A code = USPGR) Blood (test code = NEGATIVE NEGATIVE N UBLD) PH (test code = UPH) 5.5 4.5-8.0 A Protein (test code = NEGATIVE NEGATIVE N UPROT) Urobilinogen (test code 0.2 See_Comment N [Au tomated message] = U UROB) The system [employer] generated this result transmitted ref erence range: [...] code = 3+ None Seen,Trace A UBACT) [facility]-[id number] 03:01:00 Test Item Value Reference Range Interpretation [...] ( 4 - SerumAlbumin)] EGFR if >60 [place] (test code mL/min/1.73m\\ = EGFRAA) S\\2 EGFR if Non- >60 Estimate d Glomerular [place] (test code mL/min/1.73m\\ Filtrat ion Rate (eGFR) [...] and management of c hronic kidney failure. [facility] HospitalYzxtmu-[id number] 03:01:00 Test Item Value Reference Range Interpretation Comments Lipase (test code = LIPA) 145 U/L 73-393 [facility] LAB TEST, Serum Qualitative 2020-08-22 02:48:00 Test Item Value Reference Range Interpretation Comments (Serum) (test code = Negative PREGS) [facility] LAB CBC WITH AUTO [id number] 02:28:00 Test Item Value Reference Range Interpretation [...] code = IG%) 0.5 % 0.0-0.[address] [facility] [address] HospitalHEPATIC FUNCTION PANEL (LIVER)2020-08-06 02:59:00 Test Item [...] code = 0.1 mg/dl 0.0-1.1 IBIL) ER [address] [place], [place] [address]Quizaj-[id number] 02:59:00 Test Item Value Reference Range Interpretation Comments Lipase (test code = LIPA) 167 U/L 73-[address] [place] [address]-[place] AntonioURINALYSIS WITH [id number] 02:48:00 Test Item Value Reference Range Interpretation Comments Color (test code = UCOLR) Yellow Clarity (test code = UCLAR) Clear Glucose (test code = UGLUC) NEGATIVE NEGATIVE N Bilirubin (test code = UBILI) NEGATIVE NEGATIVE N Ketones (test code = UKET) NEGATIVE NEGATIVE N Specific [place] (test code = >=1.030 1.005-1.030 A USPGR) [...] code = UBACT) 4+ None Seen,Trace A [address]/PELVIS W/O [id number] 02:34:52ER 16 R/O KIDNEY STONE [facility] ([facility])Name: LAUREN BETH : [id number] Sex: FPROCEDURE INFORMATION:Exam: CT Abdomen And Pelvis [...] AM CDT.Dictated By: HOLLIS FERRERADate: 08/06/2020 02:34[facility] LAB CHEM 8 2020-08-06 02:29:00 Test Item [...] code = CREA) 0.4 mg/dl 0.6-1.[address] LAB CBC WITH AUTO [id number] 02:29:00 Test Item Value Reference Range Interpretation [...] = IG%) 0.7 % 0.0-0.4 H ER [address] [place], [place] [address]Frkkja-[id number] 09:31:00 Test Item Value Reference Range Interpretation Comments Lipase (test code = LIPA) 117 U/L 73-[address] [facility] [address] [facility] HospitalHEPATIC FUNCTION PANEL (LIVER)2020-07-19 09:31:00 Test Item [...] (test code = 0.3 mg/dl 0.0-1.1 IBIL) [facility]-[place]XR ABDOMEN 2 VIEWS FLAT / [id number] 09:22:50[facility] ([facility]F/[place])Name: LAUREN BETH : [id number] Sex: FProcedure: XR ABDOMEN 2 VIEWS FLAT / UPRIGHTOrder Date: 07/19/2020 8:40 AMOrdering Provider: REHAN COTTON .Clinical Indication: [id number]: Abdominal painComparison: July 05, 2020Findings:Postoperative change consisting [...] MD :17 AMDictated By: FARZAD DEWITTDate: 07/19/2020 09:17[facility] LAB CHEM [id number] 09:10:00 Test Item Value Reference Range Interpretation [...] = CREA) 0.5 mg/dl 0.6-1.3 L [facility] LAB CBC WITH AUTO [id number] 09:09:00 Test Item Value Reference Range Interpretation [...] = IG%) 0.7 % 0.0-0.4 H [facility] LAB URINALYSIS WITHOUT [id number] 09:08:00 Test Item Value Reference Range Interpretation Comments Color (test code = UCOLR) Yellow Lt. Yellow A Clarity (test code = UCLAR) Clear Glucose (test code = UGLUC) Negative Negative N Bilirubin (test code = UBILI) Negative Negative N Ketones (test code = UKET) Negative Negative N Specific [place] (test code = USPGR) >=1.030 1.005-1.030 A Blood (test code = UBLD) Negative Negative N PH (test code = UPH) 6.0 4.5-8.0 A Protein (test code = UPROT) Negative Negative N Urobilinogen (test code = U UROB) 0.2 >0.2 N Nitrite (test code = UNITR) Negative Negative N Leukocyte Esterase (test code = Negative Negative N ULEUK) [facility]-[place]CULTURE, [id number] 08:00:00Specimen: Urine SpecimensCollected: 07/05/2020 03:00 Status: Final Last Updated: 07/07/2020 08:00 CULTURE (Final) (Final) No Growth After 48 HoursF[facility]ter[facility]-[place]XR ABDOMEN 1 VIEW (KUB)2020-07-05 04:07:04 [facility] ([facility]/[place])Name: LAUREN BETH : [id number] Sex: FPROCEDURE INFORMATION:Exam: XR Abdomen, 1 ViewExam [...] CDT.Dictated By: OSKAR CRANE: 07/05/2020 04:06[facility] LAB , [id number] 03:54:00 Test Item Value Reference Range Interpretation Comments (Urine) (test code = Negative PREGU) [facility] LAB CHEM [id number] 03:53:00 Test Item Value Reference Range Interpretation [...] = CREA) 0.5 mg/dl 0.6-1.3 L [facility] LAB CBC WITH AUTO [id number] 03:51:00 Test Item Value Reference Range Interpretation [...] (test code = IG%) 0.4 % 0.0-0.4 [facility]-[place]kinURINALYSIS WITH [id number] 03:33:00 Test Item Value Reference Range Interpretation Comments Color (test code = UCOLR) Yellow Clarity (test code = UCLAR) Clear Glucose (test code = UGLUC) NEGATIVE NEGATIVE N Bilirubin (test code = UBILI) Small NEGATIVE A Ketones (test code = UKET) TRACE NEGATIVE A Specific [place] (test code = USPGR) 1.020 1.005-1.030 A [...] code = UBACT) Trace None Seen,Trace N [facility]-[place]CT ABDOMEN/PELVIS W/[id number] 16:44:35 [facility] ([facility]/[place])Name: LAUREN BETH : [id number] Sex: FProcedure: CT ABDOMEN/PELVIS W/CONTRASTOrder date: 06/07/2020 3:47 PMOrdering Provider: REHAN Farrellinical Indication: [id number]: Left flank painComparison: 06/07/20Technique: Multiple axial helical [...] PMDictated By: WILEY VELÁZQUEZDate: 06/07/2020 16:38[facility] STARURINALYSIS WITH [id number] 15:22:00 Test Item Value Reference Range Interpretation Comments Color (test code = UCOLR) Yellow Clarity (test code = UCLAR) Clear Glucose (test code = UGLUC) NEGATIVE NEGATIVE N Bilirubin (test code = UBILI) NEGATIVE NEGATIVE N Ketones (test code = UKET) NEGATIVE NEGATIVE N Specific [place] (test code = USPGR) 1.020 1.005-1.030 A [...] = UBACT) Trace None Seen,Trace N [facility] LAB CHEM [id number] 15:10:00 Test Item Value Reference Range Interpretation [...] = CREA) 0.4 mg/dl 0.6-1.3 L [facility] LAB CBC WITH AUTO [id number] 15:08:00 Test Item Value Reference Range Interpretation [...] code = IG%) 0.5 % 0.0-0.4 H [facility]-[place]CT ABD/ PELVIS W/O CON (RENAL STONE)2020-06-07 14:56:05[facility] ([facility]/[place])Name: LAUREN BETH : [id number] Sex: FProcedure: CT ABD/ PELVIS W/O CON (RENAL STONE)Order date: 06/07/2020 2:18 PMOrdering Provider: REHAN Farrellinical Indication: [id number]: Left flank painComparison: 05/31/20TECHNIQUE: Using a helical [...] 06/07/20202:49PMDictated By: WILEY VELÁZQUEZDate: 06/07/2020 14:49[facility] ABDOMEN/PELVIS W/O [id number] 12:27:07NPO 4 hours. Do not withhold meds hyst [facility] ([facility]/[place])Name: LAUREN BETH : [id number] Sex: FProcedure: CT ABDOMEN/PELVIS W/O CONTRASTOrder Date: 05/31/2020 10:25 AMOrdering Provider: ME ANN MARIE MCBRIDEClinical Indication: [id number]: Pain radiating to right flankComparison: March 20, [...] MD 05/31/202012:20 PMDictated By: FARZAD DEWITTDate: 05/31/2020 12:20[id number] 11:48:00 Test Item Value Reference Range Interpretation Comments Lipase (test code = LIPA) 116 U/L 73-393 [facility] LAB URINALYSIS WITHOUT [id number] 10:59:00 Test Item Value Reference Range Interpretation Comments Color (test code = UCOLR) Light yellow Lt. Yellow A Clarity (test code = UCLAR) Clear Glucose (test code = UGLUC) Negative Negative N Bilirubin (test code = UBILI) Negative Negative N Ketones (test code = UKET) Negative Negative N Specific [place] (test code = 1.025 1.005-1.030 A USPGR) Blood (test code = UBLD) Negative Negative N PH (test code = UPH) 6.0 4.5-8.0 A Protein (test code = UPROT) Negative Negative N Urobilinogen (test code = U 0.2 >0.2 N UROB) Nitrite (test code = UNITR) Negative Negative N Leukocyte Esterase (test code = Negative Negative N ULEUK) [facility] LAB CBC WITH AUTO [id number] 10:58:00 Test Item Value Reference Range Interpretation [...] code = IG%) 0.5 % 0.0-0.4 H [facility]kin[facility] CHEM [id number] 10:53:00 Test Item Value Reference Range Interpretation [...] code = CREA) 0.5 mg/dl 0.6-1.3 L [facility] Institutekin ABDOMEN 1 VIEW (KUB)2020-04-25 21:02:16 [facility] ([facility]/)Name: LAUREN BETH : [id number] Sex: FPROCEDURE INFORMATION:Exam: XR Abdomen, 1 ViewExam [...] PM CDT. Dictated By: TEJAS RODRIGUEZDate: 04/25/2020 21:02[facility]ENTERURINALYSIS WITH [id number] 18:57:00 Test Item Value Reference Range Interpretation Comments Color (test code = UCOLR) Yellow Lt. Yellow A Clarity (test code = UCLAR) Clear Glucose (test code = UGLUC) Negative Negative N Bilirubin (test code = UBILI) Negative Negative N Ketones (test code = UKET) Negative Negative N Specific [place] (test code = 1.020 1.005-1.030 A USPGR) [...] = UBACT) 4+ None Seen,Trace A [facility] LAB CBC WITH AUTO [id number] 18:55:00 Test Item Value Reference Range Interpretation [...] of Platel et clumping was entered by [id number] on 04/25/2020 18:5 5 [facility] LAB CHEM [id number] 18:17:00 Test Item Value Reference Range Interpretation [...] = CREA) 0.4 mg/dl 0.6-1.3 L [facility] ClinicsLISSY, ANAEROBE [id number] 15:20:00FIRST DRAW = 1 aerobic and 1 anerobic CultureSpecimen: BloodCollected: 03/20/2020 18:30 Status: Final Last Updated: 03/26/2020 15:19 (1) FIRST DRAW = 1 aerobic and 1 anerobic Culture CULTURE (Final) (Final) No Growth After 5 DaysAspirus Riverview Hospital and ClinicsURE, [id number] 15:20:00FIRST DRAW = 1 aerobic and 1 anerobic CultureSpecimen: BloodCollected: 03/20/2020 18:30 Status: Final Last Updated: 03/26/2020 15:19 (1) FIRST DRAW = 1 aerobic and 1 anerobic Culture CULTURE (Final) (Final) No Growth After 5 DaysF[facility]-[place]CT ABDOMEN/PELVIS W/[id number] 21:46:442 weeks s/p adhesolysis. Vomiting/pain/fever. Please do CT with PO and IV contrastProcedures: CT ABDOMEN/PELVIS W/CONTRASTExam Date: 03/20/2020 6:04 PMOrdering Physician: REHAN Farrellinical Indication: [id number]: Abdominal painComparison: CT abdomen/pelvis, 02/25/20TECHNIQUE: Spiral multislice [...] 9:40 PMDictated By: ELMER PHAMDate:03/20/2020 21:40[facility] STARHEPATIC FUNCTION PANEL (LIVER)2020-03-20 19:24:00 Test Item Value [...] (test code = 0.3 mg/dl 0.0-1.1 IBIL) [facility] InstitutekinLIPASE2020-09-20 19:24:00 Test Item Value Reference Range Interpretation Comments Lipase (test code = LIPA) 69 U/L 73-393 L [facility] InstituteGulzed-[id number] 19:24:00 Test Item Value Reference Range Interpretation Comments Magnesium (test code = MG) 2.0 mg/dl 1.6-2.6 [facility] LAB CHEM [id number] 18:43:00 Test Item Value Reference Range Interpretation [...] = CREA) 0.5 mg/dl 0.6-1.3 L [facility] LAB LACTIC [id number] 18:42:00 Test Item Value Reference Range Interpretation Comments LACTATE (test code = 2.50 mmol/l 0.90-1.70 R&RB sy rene hassan rn LAC) @1842 [facility] LAB CBC WITH AUTO [id number] 18:41:00 Test Item Value Reference Range Interpretation [...] (test code = IG%) 0.4 % 0.0-0.[address] [facility] PERC PLMNT MIDLINE NO PORT > 5 [...] to the skin in the usual fashion.Foreign Service Officer images were recorded and stored in the medical [facility] center fordocumentation. The patient tolerated the procedure well and there were noimmediate complications.Impression:1. Successful upper extremity vascular access.This final report was electronically signed by Dr Farzad Dewitt MD 03/15/20201:14 PMDictated By: FARZAD DEWITTDate: 03/15/2020 13:14[facility]ITALCORONAVIR[facility] (IN HOUSE)2020-03-13 21:03:00 Test Item Value Reference Range Interpretation Comments FT (test code Negative Negative N The BioGX SARS -CoV-2 = COVID) (qualifier value) Reagents f or BD MAX System, the Bio Fire Covid-19, and t he Cepheid Covid-1 9 is for in vitro us e under FDA Emergency U se Authorization o nly. Indeterminate r esults recommend recol lection of specimen. [facility]ufkinXR ABD SERIES W/PA [id number] 17:33:07 Procedure: XR ABD SERIES W/PA CXROrder [...] PMDictated By: Maggie BENITEZte: 03/13/2020 17:26[facility] CBC WITH AUTO [id number] 17:23:00 Test Item Value Reference Range Interpretation [...] entered by [id number] on 03/13/2020 17:23 [facility] HospitalVulesf-[id number] 17:23:00 Test Item Value Reference Range Interpretation Comments Lipase (test code = LIPA) 61 U/L 73-[address] [address] HospitalHEPATIC FUNCTION PANEL (LIVER)2020-03-13 17:23:00 Test Item [...] (test code = 0.4 mg/dl 0.0-1.1 IBIL) [facility] HospitalURINALYSIS WITH [id number] 16:54:00 Test Item Value Reference Range Interpretation Comments Color (test code = UCOLR) Yellow Lt. Yellow A Clarity (test code = UCLAR) Clear Glucose (test code = UGLUC) Negative Negative N Bilirubin (test code = UBILI) Negative Negative N Ketones (test code = UKET) Negative Negative N Specific [place] (test code = >=1.030 1.005-1.030 A USPGR) [...] = UBACT) 4+ None Seen,Trace A [facility] LAB CHEM [id number] 16:37:00 Test Item Value Reference Range Interpretation [...] code = CREA) 0.4 mg/dl 0.6-1.3 L [facility]-LufkinSP PERC PLMNT MIDLINE NO PORT > 5 [...] 03/02/202012:17 PMDictated By: GLORY BENITEZKDate: 03/02/2020 12:17[facility] [place] [address] (IN HOUSE)2020-03-01 18:48:00 Test Item Value Reference Range Interpretation Comments FT (test code Negative Negative N The BioGX SARS -CoV-2 = COVID) (qualifier value) Reagents f or BD MAX System, the Bio Fire Covid-19, and t he Cepheid Covid-1 9 is for in vitro us e under FDA Emergency U se Authorization o nly. Indeterminate r esults recommend recol lection of specimen. [facility]-LufkinPT AND [id number] 11:51:00 Test Item Value Reference Range Interpretation Comments Protime (test code 9.8 seconds 9.5-12.1 = PT) INR (test code = 0.9 0.9-1.1 INR results are intended INR) ONLY to monitor Oral Anticoagulant t herapy in stablized patie nts. The INR Therapeutic Range is 2.0 - 3.0 Patie nts with a mechanical he art, the INR Range is 2. 5 - 3.5 [facility]-[id number] 11:51:00 Test Item Value Reference Range Interpretation Comments aPTT (test code = PTT) 27.4 seconds 23.9-30.[address] [facility] HospitalfkinCBC (HEMOGRAM ONLY)2020-03-01 11:44:00 Test Item Value Reference [...] WILL BE NOTED ON THE RE PORT. [facility]-[place] AntonioCULTURE, [id number] 08:08:00Specimen: Urine RandomCollected: 02/25/2020 11:27 Status: Final Last Updated: 02/27/2020 08:08 CULTURE (Final) (Final) No Growth After 48 HoursF[facility]edtert [facility]-[place] [id number] 05:38:00 Test Item Value Reference Range Interpretation [...] 0.5-1.3 code = CREA) EGFR if >60 [place] (test code mL/min/1.73m\\ = EGFRAA) S\\2 EGFR if Non- >60 Estimate d Glomerular [place] (test code mL/min/1.73m\\ Filtrat ion Rate (eGFR) [...] and management of c hronic kidney failure. [facility]-LufkinTS (Ultra Sensitive)2020-02-26 05:38:00 Test Item Value Reference Range Interpretation Comments TSH (test code = TSH) 0.04 mIU/L 0.35-3.74 L [facility] WITH AUTO [id number] 05:18:00 Test Item Value Reference Range Interpretation [...] 0.5 % 0.0-0.4 H IG%) CBC AUTO diffGundersen St Joseph's Hospital and ClinicsAVIRUS 2019 (IN HOUSE)2020-02-25 14:06:00 Test Item Value Reference Range Interpretation Comments FT (test code Negative Negative N The BioGX SARS -CoV-2 = COVID) (qualifier value) Reagents f or BD MAX System, the Bio Fire Covid-19, and t he Cepheid Covid-1 9 is for in vitro us e under FDA Emergency U se Authorization o nly. Indeterminate r esults recommend recol lection of specimen. [facility]-fkinURINALYSIS WITH [id number] 12:56:00 Test Item Value Reference Range Interpretation Comments Color (test code = UCOLR) Yellow Lt. Yellow A Clarity (test code = UCLAR) Slightly Cloudy Glucose (test code = UGLUC) Negative Negative N Bilirubin (test code = UBILI) Negative Negative N Ketones (test code = UKET) Negative Negative N Specific [place] (test code = >=1.030 1.005-1.030 A USPGR) [...] code = UBACT) Trace None Seen,Trace N [facility] InstitutekinLIPASE2020-08-27 12:52:00 Test Item Value Reference Range Interpretation Comments Lipase (test code = LIPA) 90 U/L 73-[address] [facility] [address] [facility] HospitalHEPATIC FUNCTION PANEL (LIVER)2020-02-25 12:52:00 Test Item [...] (test code = 0.3 mg/dl 0.0-1.1 IBIL) [facility]-[place]CT ABDOMEN/PELVIS W/[id number] 12:42:41NPO 4 hours. Do not withhold medsProcedure: [...] MD 02/25/202012:36 PMDictated By: WILEY VELÁZQUEZDate: 02/25/2020 12:36[facility] CHEM 2020-02-25 12:07:00 Test Item Value [...] = CREA) 0.5 mg/dl 0.6-1.3 L [facility] LAB CBC WITH AUTO [id number] 12:05:00 Test Item Value Reference Range Interpretation [...] code = IG%) 0.3 % 0.0-0.4 [facility] LAB CBC WITH AUTO [id number] 03:15:00 Test Item Value Reference Range Interpretation [...] = IG%) 0.6 % 0.0-0.4 H [facility] LAB CHEM [id number] 02:55:00 Test Item Value Reference Range Interpretation [...] = CREA) 0.5 mg/dl 0.6-1.3 L [facility] ABDOMEN 1 VIEW (KUB)2020-02-25 02:45:30 PROCEDURE INFORMATION:Exam: [...] By: JORGE LUIS WHITEDate: 02/25/2020 02:45[facility] , URINE 2020-02-25 01:12:00 Test Item Value Reference Range Interpretation Comments (Urine) (test code = Negative PREGU) [facility] LAB URINALYSIS WITHOUT [id number] 01:11:00 Test Item Value Reference Range Interpretation Comments Color (test code = UCOLR) Yellow Lt. Yellow A Clarity (test code = UCLAR) Clear Glucose (test code = UGLUC) Negative Negative N Bilirubin (test code = UBILI) Negative Negative N Ketones (test code = UKET) Negative Negative N Specific [place] (test code = USPGR) >=1.030 1.005-1.030 A Blood (test code = UBLD) Negative Negative N PH (test code = UPH) 5.5 4.5-8.0 A Protein (test code = UPROT) Negative Negative N Urobilinogen (test code = U UROB) 0.2 >0.2 N Nitrite (test code = UNITR) Negative Negative N Leukocyte Esterase (test code = Negative Negative N ULEUK) [facility] ABDOMEN 1 VIEW (KUB)2020-02-10 06:46:05 Procedure: XR ABDOMEN 1 VIEW (KUB)Order date: 02/10/2020 4:01 AMOrdering Provider: JUAN Galiciainical Indication: Abdominal painComparison: NoneFindings:There is no small or large bowel distention.There is no pneumoperitoneum.There are no suspicious calcifications.There is no skeletal abnormality.Impression:1. Negative single view abdomen.This final report was electronically signed by Dr Wiley Velázquez MD 02/10/20206:39 AMDictated By: WILEY VELÁZQUEZDate: 02/10/2020 06:39[facility] RENAL & BLADDER (KIDNEYS)2020-02-10 05:31:33PROCEDURE INFORMATION:Exam: US [...] By: JORGE LUIS WHITEDate: 02/10/2020 05:31[facility] STARURINALYSIS WITH [id number] 05:10:00 Test Item Value Reference Range Interpretation Comments Color (test code = UCOLR) Yellow Lt. Yellow A Clarity (test code = UCLAR) Clear Glucose (test code = UGLUC) >=1000 Negative A Bilirubin (test code = UBILI) Negative Negative N Ketones (test code = UKET) Negative Negative N Specific [place] (test code = 1.015 1.005-1.030 A USPGR) [...] = UBACT) None Seen None Seen,Trace N [facility] HospitalLIPASE2020-08-12 04:42:00 Test Item Value Reference Range Interpretation Comments Lipase (test code = LIPA) 91 U/L 73-[address] [address] [facility] HospitalHEPATIC FUNCTION PANEL (LIVER)2020-02-10 04:42:00 Test Item [...] code = 0.2 mg/dl 0.0-1.1 IBIL) [facility] LAB CHEM [id number] 04:27:00 Test Item Value Reference Range Interpretation [...] code = CREA) 0.6 mg/dl 0.6-1.3 [facility] LAB , [id number] 04:24:00 Test Item Value Reference Range Interpretation Comments (Urine) (test code = Negative PREGU) [facility] LAB CBC WITH AUTO [id number] 04:22:00 Test Item Value Reference Range Interpretation [...] code = IG%) 0.5 % 0.0-0.4 H [facility]-LukinCT L SPINE W/O [id number] 12:46:24 Procedure: CT L SPINE W/O CONTRASTOrder date: 01/25/2020 11:46 AMOrdering Provider: DONALD Healyinical Indication: [id number]: Low back painComparison: NoneTechnique: Using a multislice [...] MD 01/25/202012:39 PMDictated By: WILEY VELÁZQUEZDate: 01/25/2020 12:39[facility]ENTERHEPATIC FUNCTION PANEL (LIVER)2019-12-09 05:49:00 Test Item Value [...] code = 0.3 mg/dl 0.0-1.1 IBIL) ER [address] [place], [place] [address]Hmakhn-[id number] 05:49:00 Test Item Value Reference Range Interpretation Comments Lipase (test code = LIPA) 105 U/L 73-[address] LAB CHEM [id number] 05:06:00 Test Item Value Reference Range Interpretation [...] code = CREA) 0.5 mg/dl 0.6-1.3 L [address]kinSTAT LAB CBC WITH AUTO [id number] 05:04:00 Test Item Value Reference Range Interpretation [...] (test code = IG%) 0.4 % 0.0-0.[address]-[id number] 02:23:00 Test Item Value Reference Range Interpretation [...] ( 4 - SerumAlbumin)] EGFR if >60 [place] (test code mL/min/1.73m\\ = EGFRAA) S\\2 EGFR if Non- >60 Estimate d Glomerular [place] (test code mL/min/1.73m\\ Filtrat ion Rate (eGFR) [...] and management of c hronic kidney failure. [facility]URINALYSIS WITH [id number] 02:11:00 Test Item Value Reference Range Interpretation Comments Color (test code = UCOLR) Yellow Lt. Yellow A Clarity (test code = UCLAR) Clear Glucose (test code = UGLUC) Negative Negative N Bilirubin (test code = UBILI) Negative Negative N Ketones (test code = UKET) Trace Negative A Specific [place] (test code = USPGR) >=1.030 1.005-1.030 A [...] = UBACT) 2+ None Seen,Trace A [facility] LAB CBC WITH AUTO [id number] 02:03:00 Test Item Value Reference Range Interpretation [...] (test code = IG%) 0.4 % 0.0-0.4 [facility]CT ABDOMEN/PELVIS W/[id number] 22:43:00NPO 4 hours. Do not withhold meds [...] PM CDT.Dictated By: JOSUÉ MCGHEEDate: 10/07/2019 22:42[facility] 2019-10-07 22:05:00 Test Item Value Reference Range [...] 0.5-1.3 code = CREA) EGFR if >60 [place] (test code mL/min/1.73m\\ = EGFRAA) S\\2 EGFR if Non- >60 Estimate d Glomerular [place] (test code mL/min/1.73m\\ Filtrat ion Rate (eGFR) [...] and management of c hronic kidney failure. [facility]ufkinAMYLASE, [id number] 22:05:00 Test Item Value Reference Range Interpretation Comments Amylase (test code = AMYL) 43 U/L 25-115 [facility] HospitalTqmxqe-[id number] 22:05:00 Test Item Value Reference Range Interpretation Comments Lipase (test code = LIPA) 95 U/L 73-393 [facility]URINALYSIS WITH [id number] 21:49:00 Test Item Value Reference Range Interpretation Comments Color (test code = UCOLR) Yellow Lt. Yellow A Clarity (test code = UCLAR) Clear Glucose (test code = UGLUC) Negative Negative N Bilirubin (test code = UBILI) Negative Negative N Ketones (test code = UKET) 15 Negative A Specific [place] (test code = USPGR) >=1.030 1.005-1.030 A [...] = UBACT) 3+ None Seen,Trace A [facility] LAB CBC WITH AUTO [id number] 21:45:00 Test Item Value Reference Range Interpretation [...] (test code = IG%) 0.4 % 0.0-0.4 [facility]STAT LAB , [id number] 21:36:00 Test Item Value Reference Range Interpretation Comments (Urine) (test code = Negative PREGU) [facility]CT ABDOMEN/PELVIS W/O [id number] 03:56:36 PROCEDURE INFORMATION:Exam: CT Abdomen And Pelvis [...] AM CDT.Dictated By: AMY ORDOÑEZDate: 09/20/2019 03:56 [id number] 02:07:00 Test Item Value Reference Range Interpretation [...] ( 4 - SerumAlbumin)] EGFR if >60 [place] (test code mL/min/1.73m\\ = EGFRAA) S\\2 EGFR if Non- >60 Estimate d Glomerular [place] (test code mL/min/1.73m\\ Filtrat ion Rate (eGFR) [...] and management of c hronic kidney failure. [facility]-LufkinXR ABDOMEN 2 VIEWS FLAT / [id number] 02:01:15PROCEDURE INFORMATION:Exam: XR Abdomen, 2 ViewsExam date [...] 2:01 AM CDT.Dictated By: AMY ORDOÑEZDate: 09/20/2019 02:01[facility] WITH MICROSCOPIC 2019-09-20 01:56:00 Test Item Value Reference Range Interpretation Comments Color (test code = UCOLR) Yellow Lt. Yellow A Clarity (test code = UCLAR) Clear Glucose (test code = UGLUC) >=1000 Negative A Bilirubin (test code = UBILI) Negative Negative N Ketones (test code = UKET) Trace Negative A Specific [place] (test code = USPGR) >=1.030 1.005-1.030 A [...] = UBACT) 2+ None Seen,Trace A [facility] LAB CBC WITH AUTO [id number] 01:38:00 Test Item Value Reference Range Interpretation [...] code = IG%) 0.5 % 0.0-0.4 H [facility] ABDOMEN/PELVIS W/[id number] 04:23:30 PROCEDURE INFORMATION:Exam: CT Abdomen And Pelvis [...] 20194:23 AM CDT.Dictated By: SETH MEDINADate: 08/17/2019 04:23MMH[facility] [id number] 03:34:00 Test Item Value Reference Range Interpretation Comments Lipase (test code = LIPA) 67 U/L 73-393 L [facility]-IqlotlKHF9063-52-93 03:34:00 Test Item Value Reference Range Interpretation [...] ( 4 - SerumAlbumin)] EGFR if >60 [place] (test code mL/min/1.73m\\ = EGFRAA) S\\2 EGFR if Non- >60 Estimate d Glomerular [place] (test code mL/min/1.73m\\ Filtrat ion Rate (eGFR) [...] management of c hronic kidney failure. [facility] LAB CBC WITH AUTO [id number] 03:19:00 Test Item Value Reference Range Interpretation [...] code = IG%) 0.7 % 0.0-0.4 [facility] InstitutekinURINALYSIS WITH [id number] 03:10:00 Test Item Value Reference Range Interpretation Comments Color (test code = UCOLR) YELLOW Clarity (test code = UCLAR) CLEAR Glucose (test code = UGLUC) NEGATIVE NEGATIVE N Bilirubin (test code = UBILI) NEGATIVE NEGATIVE N Ketones (test code = UKET) NEGATIVE NEGATIVE N Specific [place] (test code = 1.025 1.005-1.030 A USPGR) [...] code = UBACT) 1+ None Seen,Trace A [facility] InstitutekinSTAT LAB , [id number] 03:03:00 Test Item Value Reference Range Interpretation Comments (Urine) (test code = Negative PREGU) ONLY AVAILABLE 8A-12[facility] CenterLukinED2 [id number] 20:37:00 Test Item Value Reference Range Interpretation [...] (test code = CREA) 0.6 mg/dl 0.6-1.2 [facility] CenterLufkinED2 [id number] 20:28:00 Test Item Value Reference Range Interpretation [...] code = MPV) 7.1 fL 8.0-11.0 A [facility]-OlamidefkinCULTLISSY, [id number] 08:44:65pim0Yfentwys: Urine SpecimensCollected: 07/12/2019 15:00 Status: Final Last Updated: 2019 08:44 (1) err7 Culture Result (Final) (Final) Moderate Mixed Body Gabriela Isolated No Pathogens Isolated No Further Workup PerformedFroedtert West Bend Hospital-LufkinFL LIMITED [id number] 17:53:41Procedures: FL LIMITED IVPExam Date: 07/12/2019 3:21 PMOrdering Physician: REHAN Farrellinical Indication: [id number]: Flank painComparison: CT abdomen/pelvis, 05/17/19Findings: Frontal radiographs [...] PMDictated By: ELMER PHAMDate: 07/12/2019 17:47[facility] [id number] 15:56:00 Test Item Value Reference Range Interpretation Comments Lipase (test code = LIPA) 97 U/L 73-[address] [facility] HospitalHEPATIC FUNCTION PANEL (LIVER)2019-07-12 15:56:00 Test Item Value [...] (test code = 0.2 mg/dl 0.0-1.1 IBIL) [address]-LufkinURINALYSIS WITH [id number] 15:51:00 Test Item Value Reference Range Interpretation Comments Color (test code = UCOLR) YELLOW Clarity (test code = UCLAR) CLEAR Glucose (test code = UGLUC) NEGATIVE NEGATIVE N Bilirubin (test code = UBILI) NEGATIVE NEGATIVE N Ketones (test code = UKET) NEGATIVE NEGATIVE N Specific [place] (test code = 1.020 1.005-1.030 A USPGR) [...] code = UBACT) 4+ None Seen,Trace A [address] CHEM [id number] 15:09:00 Test Item Value Reference Range Interpretation [...] (test code = CREA) 0.6 mg/dl 0.6-1.[address] LAB CBC WITH AUTO [id number] 15:08:00 Test Item Value Reference Range Interpretation [...] (test code = IG%) 0.4 % 0.0-0.[address]-[facility] CenterkinCT ABDOMEN/PELVIS W/[id number] 16:33:46NPO 4 hours. Do not withhold medsProcedures: CT ABDOMEN/PELVIS W/CONTRASTExam Date: 05/17/2019 1:31 PMOrdering Physician: MERLE LYNNEClinical Indication: [id number]: Abdominal painComparison: CT abdomen/pelvis, 04/09/19TECHNIQUE: Spiral multislice [...] PMDictated By: ELMER PHAMDate: 05/17/2019 16:27[facility] [id number] 16:20:00 Test Item Value Reference Range Interpretation Comments Lipase (test code = LIPA) 70 U/L 73-393 L [facility] LAB CHEM [id number] 15:24:00 Test Item Value Reference Range Interpretation [...] = CREA) 0.5 mg/dl 0.6-1.3 L [facility] LAB LACTIC [id number] 15:23:00 Test Item Value Reference Range Interpretation Comments LACTATE (test code = LAC) 1.39 mmol/l 0.90-1.70 [facility] LAB CBC WITH AUTO [id number] 15:21:00 Test Item Value Reference Range Interpretation [...] code = IG%) 0.5 % 0.0-0.4 H [facility]-LufkinURINALYSIS WITH [id number] 15:08:00 Test Item Value Reference Range Interpretation Comments Color (test code = UCOLR) YELLOW Clarity (test code = UCLAR) CLEAR Glucose (test code = UGLUC) NEGATIVE NEGATIVE N Bilirubin (test code = UBILI) NEGATIVE NEGATIVE N Ketones (test code = UKET) NEGATIVE NEGATIVE N Specific [place] (test code = 1.025 1.005-1.030 A USPGR) [...] code = UBACT) 2+ None Seen,Trace A [facility]-LufkinCT ANGIO HEAD W/WO [id number] 16:28:5720 g Cathlon Above the Antecubital or higher requiredProcedure: CT ANGIO HEAD W/WO CONTRASTOrder Date: 05/12/2019 3:30 PMOrdering Provider: REHAN CABRERARSClinical Indication: [id number]: HeadacheComparison: NoneTechnique: Using a helical scanner, sequential axial imaging of the brain wasobtained before and after the administration of the contrast medium. At anindependent workstation, 3-D reconstructions of the [place] wereobtained.This examwas performed according to [...] PMDictated By: FARZAD DEWITTDate: 05/12/2019 16:22[facility]ARCT ABDOMEN/PELVIS W/[id number] 14:36:05NPO 4 hours. Do not withhold medsProcedure: [...] PMDictated By: GLORY BENITEZKDate: 04/09/2019 14:29[facility] WITH AUTO [id number] 09:02:00 Test Item Value Reference Range Interpretation [...] code = 0.5 % 0.0-0.4 H IG%) [facility] WITH AUTO [id number] 09:14:00 Test Item Value Reference Range Interpretation [...] (test code = 0.4 % 0.0-0.4 IG%) [facility]-VjvnfyQQO6072-64-06 09:12:00 Test Item Value Reference Range Interpretation [...] 0.5-1.3 code = CREA) EGFR if >60 [place] (test code mL/min/1.73m\\ = EGFRAA) S\\2 EGFR if Non- >60 Estimate d Glomerular [place] (test code mL/min/1.73m\\ Filtrat ion Rate (eGFR) [...] and management of c hronic kidney failure. [facility]-LufkinSP PERC PLMNT MIDLINE NO PORT > 5 [...] MD 04/07/20194:05 PMDictated By: WILEY VELÁZQUEZDate: 04/07/2019 16:05[facility]IS W/[id number] 22:50:40PROCEDURE INFORMATION:Exam: CT Abdomen and pelvis with [...] PM CDT.Dictated By: ELMER PHAMDate: 04/04/2019 22:50[id number] 21:22:00 Test Item Value Reference Range Interpretation Comments Lipase (test code = LIPA) 89 U/L 73-[address] [facility] HospitalHEPATIC FUNCTION PANEL (LIVER)2019-04-04 21:22:00 Test Item [...] code = 0.3 mg/dl 0.0-1.1 IBIL) [facility] LAB CHEM [id number] 21:07:00 Test Item Value Reference Range Interpretation [...] code = CREA) 0.6 mg/dl 0.6-1.3 [facility] LAB URINALYSIS WITHOUT [id number] 21:05:00 Test Item Value Reference Range Interpretation Comments Color (test code = UCOLR) Yellow Lt. Yellow A Clarity (test code = UCLAR) Slightly Cloudy Glucose (test code = UGLUC) 100 Negative A Bilirubin (test code = UBILI) Negative Negative N Ketones (test code = UKET) Negative Negative N Specific [place] (test code = >=1.030 1.005-1.030 A USPGR) Blood (test code = UBLD) Negative Negative N PH (test code = UPH) 5.5 4.5-8.0 A Protein (test code = UPROT) Negative Negative N Urobilinogen (test code = U 0.2 >0.2 N UROB) Nitrite (test code = UNITR) Negative Negative N Leukocyte Esterase (test code Negative Negative N = ULEUK) [facility] LAB CBC WITH AUTO [id number] 21:04:00 Test Item Value Reference Range Interpretation [...] code = IG%) 0.5 % 0.0-0.4 H [facility] InstitutekinS[facility] , [id number] 21:04:00 Test Item Value Reference Range Interpretation Comments (Urine) (test code = Negative PREGU) ONLY AVAILABLE 8A-12[facility]-LufkinED2 [id number] 16:05:00 Test Item Value Reference Range Interpretation Comments Sodium (test code = CANCELED mmol/l The r eleased value NA) 141 was cancele d by [id number] on 04/04/2019 16:0 5 Potassium (test code CANCELED mmol/l The released value = K) 3.9 was cancele d by [id number] on 04/04/2019 16:0 5 CO2 (test code = CANCELED mmol/l The rele ased value CO2) 23 was canceled by [id number] on 04/04/2019 16:0 5 Chloride (test code CANCELED mmol/l The r eleased value = CL) 108 was cancele d by [id number] on 04/04/2019 16:0 5 Glucose (test code = CANCELED mg/dl The r eleased value GLU) 96 was canceled by [id number] on 04/04/2019 16:0 5 Calcium (test code = CANCELED mg/dl The r eleased value CALC) 8.8 was cancele d by [id number] on 04/04/2019 16:0 5 BUN (test code = CANCELED mg/dl The relea sed value BUN) 11 was canceled by [id number] on 04/04/2019 16:0 5 Creatinine (test CANCELED mg/dl code = CREA) [facility]-fkinHISTOLOGY [id number] 11:08:00 [address] [place], [place] [address]: [phone] DQET #: [id number] MedicalDirector: Seth Valdez M.D.Surgical Pathology Consultation ReportPatient Name: LAUREN BETH Case #: [id number] Med. Rec. #:[id number] [id number] Date: 03/21/2019 : 1985(Age:33) Received: 03/23/2019 [...] dimension. The cystsarefilled with clearserous fluid. Foreign Service Officer sections of the ovaryandpossible fallopian tube are submitted in cassettes A1-A8. /03/23/2019 Seth Valdez MD, Board Certified in Anatomic Pathology Microscopic DescriptionMicroscopic examination of the right ovary reveals fibrovascularadhesionsalong the surface of the ovary as well as along the accompanyingfallopiantube. The ovarian parenchyma contains follicular cysts, benign serouscyst,as well as numerous corpus albicans. No areas of endometriosis areseen. Billing Fee Code(s): A; 60093PdkmjtufF[facility]-[place]- [place] TRANSVAGINAL W/[id number] 16:45:00 Patient Name: LAUREN BETH Unit No: [id number] EXAMS: CPT CODE: [id number] US TRANSVAGINAL W/PELVIS 23914 CLINICAL HISTORY: Right lower quadrant pain. Status [...] no extraovarian adnexal mass or significant free fluidin the pelvis. IMPRESSION: 1. Status post hysterectomy and left oophorectomy. 2. Enlargement of the right ovary with hemorrhagic cyst as well as simple cyst as described above. Blood flow is identifiedin the right ovary. at 1645 Reported andsigned by: Mario Guidry MD CC: Hilaria Caldernó MD Technologist: Dipesh Miranda RDMS, T Probe:[id number] Trnscrbd D/ (6125) Ro Orig Print D/T: S: 03/10/2019 (4118) [facility]: LAUREN BETH Radiology Department PHYS: Hilaria Maldonado [address] : 1985 AGE: 33 SEX: F [place], [place] [address] LOC: DayanaraERS PHONE#: [phone] EXAM DATE: 03/10/2019 STATUS: DEP ER FAX #: [phone] RAD NO: [id number] Page 1 Signed Report Patient Name: LAUREN BETH Unit No: [id number] EXAMS: CPT CODE: [id number] US TRANSVAGINAL W/PELVIS 72146 (Continued) [facility] NAME: LAUREN BETH Radiology Department PHYS: NIGEL - StephaneSarabjitHilaria [address] : 1985 AGE: 33 SEX: F [place], [place] [address] LOC: DayanaraERS PHONE #: [phone] EXAM DATE: 03/10/2019 STATUS: [facility] ER FAX #: [phone] RAD NO: [id number] Page 2 Signed Report- US TRANSVAGINAL W/[id number] 16:45:00 Patient Name: ADELIA BETH Unit No: [id number] EXAMS: CPT CODE: [id number] US TRANSVAGINAL W/PELVIS 52356 CLINICAL HISTORY: Right lower quadrant pain. Status [...] left oophorectomy. 2. Enlargement of the right o vary with hemorrhagic cyst as well as simple cyst as described above. Blood flow is identified in the right ovary. at 7794 Reported and signed by: Mario Guidry MD CC: Hilaria Calderón MD Technologist: Dipesh Miranda RDMS, RVT Probe: [id number] Trnscrbd D/ (6907) Ro Orig Print D/T: S: 03/10/2019 (1648) [facility] NAME: ADELIA BETH Radiology Department PHYS: Sarabjit Maldonadoondra [address] : 1985 AGE: 33 SEX: [place] [address] LOC: ALONDRA PHONE #: [phone] EXAM DATE: 03/10/2019 STATUS: REG ER FAX #: [phone] RAD NO: Page 1 Signed Report Patient Name: ADELIA BETH Unit No: [id number] EXAMS: CPT CODE: [id number] US TRANSVAGINAL W/PELVIS 26065 <Continued> [facility] NAME: ADELIA BETH Radiology Department PHYS: Hilaria Maldonado [address] : 1985 AGE: 33 SEX: F [place] [address] LOC: ALONDRA PHONE #: [phone] EXAM DATE: 03/10/2019 STATUS: REG ER FAX #: [phone] RAD NO: Page 2 Signed Report- US PELVIS [id number] 16:45:00 Patient Name: LAUREN BETH Unit No: [id number] EXAMS: CPT CODE: [id number] US PELVIS COMPLETE 60537 CLINICAL HISTORY: Right lower quadrant pain. Status [...] Dipesh Miranda RDMS, RVT Probe: Trnscrbd D/ (9945) t.MICAELAR.YOS Orig Print D/T: S: 03/10/2019 (1594) [facility] Radiology Department [facility]YS: [facility] StephaneHilaria [address] : 1985 AGE: 33 SEX: F [place] [address] LOC: DayanaraERS PHONE #: [phone] EXAM DATE: 03/10/2019 STATUS: DEP ER FAX #: [phone] RAD NO: [id number] Page 1 Signed Report Patient Name: LAUREN BETH Unit No: [id number] EXAMS: CPT CODE: [id number] US PELVIS COMPLETE 71571 (Continued) [facility] NAME: LAUREN BETH Radiology Department PHYS: SUE. - Hilaria Calderón [address] : 1985 AGE: 33 SEX: F [place] [address] LOC: DayanaraERS PHONE #: [phone] EXAM DATE: 03/10/2019 STATUS: DEP ER FAX #: [phone] RAD NO: [id number] Page 2 Signed Report- US PELVIS COMPLETE 2019-03-10 16:45:00 Patient Name: ADELIA BETH Unit No: [id number] EXAMS: CPT CODE: [id number] US PELVIS COMPLETE 15086 CLINICAL HISTORY: Right lower quadrant pain. Status [...] Dipesh Miranda RDMS, RVT Probe: Trnscrbd D/ (8435) t.MICAELAR.YOS Orig Print D/T: S: 03/10/2019 (0538) [facility] NAME: ADELIA BETH Radiology Department PHYS: Hilaria Maldonado [address] : 1985 AGE: 33 SEX: F [place] [address] LOC: ALONDRA PHONE #: [phone] EXAM DATE: 03/10/2019 STATUS: REG ER FAX #: [phone] RAD NO: Page 1 Signed Report Patient Name: ADELIA BETH Unit No: [id number] EXAMS: CPT CODE: [id number] US PELVIS COMPLETE 90050 <Continued> [facility] NAME: ADELIA BETH Radiology Department PHYS: Hilaria Maldonado [address] : 1985 AGE: 33 SEX: F [place] [address] LOC: ALONDRA PHONE #: [phone] EXAM DATE: 03/10/2019 STATUS: REG ER FAX #: [phone] RAD NO: Page 2 Signed ReportCB W/AUTO [id number] 16:18:00 Test Item Value Reference Range Interpretation [...] = PLTMR) UA RFLX MICR CULT IF [id number] 16:07:00 Test Item Value Reference Range Interpretation [...] A Indication for culture: Suprapubic PainUR HCG [id number] 16:07:00 Test Item Value Reference Range Interpretation [...] culture: Suprapubic PainUA RFLX MICR CULT IF [id number] 16:04:00 Test Item Value Reference Range Interpretation [...] EPIU) Indication for culture: Suprapubic PainUR HCG [id number] 16:04:00 Test Item Value Reference Range Interpretation [...] culture: Suprapubic PainUA RFLX MICR CULT IF [id number] 15:55:00 Test Item Value Reference Range Interpretation [...] RARE-FEW Indication for culture: Suprapubic PainUR HCG [id number] 15:55:00 Test Item Value Reference Range Interpretation [...] and tested. Indication for culture: Suprapubic PainED2 [id number] 01:18:00 Test Item Value Reference Range Interpretation [...] code = MPV) 6.9 fL 8.0-11.0 A [facility]ufkinED2 URINE [id number] 00:55:00 Test Item Value Reference Range Interpretation Comments Color (test code = UCOLR) Yellow Lt. Yellow A Clarity (test code = UCLAR) Clear Glucose (test code = UGLUC) NEGATIVE NEGATIVE N Bilirubin (test code = UBILI) NEGATIVE NEGATIVE N Ketones (test code = UKET) NEGATIVE NEGATIVE N Specific [place] (test code = USPGR) 1.030 1.005-1.030 A Blood (test code = UBLD) NEGATIVE NEGATIVE N PH (test code = UPH) 6.0 4.5-8.0 A Protein (test code = UPROT) Trace NEGATIVE A Urobilinogen (test code = U UROB) 0.2 >0.2 N Nitrite (test code = UNITR) NEGATIVE NEGATIVE N Leukocyte Esterase (test code = NEGATIVE NEGATIVE N ULEUK) [facility]ED[facility] , [id number] 00:54:00 Test Item Value Reference Range Interpretation Comments (Urine) (test code = Negative PREGU) [facility] HospitalRwukzj-ErtcowAGICPD7531-90-10 13:07:00 Test Item Value Reference Range Interpretation Comments Lipase (test code = LIPA) 106 U/L 73-393 [facility]ED[facility] ABDOMEN/PELVIS W/[id number] 12:24:12Procedures: ED2 CT ABDOMEN/PELVIS W/CONTRASTExam Date: 02/07/2019 10:11 AMOrdering Physician: WYATT Downsinical Indication: [id number]: Epigastric painComparison: CT abdomen/pelvis, 01/27/19TECHNIQUE: Spiral multislice [...] MD02/07/2019 12:17 PMDictated By: ELMER PHAMDate: 02/07/2019 12:17[place] [address] [id number] 10:48:00 Test Item Value Reference Range Interpretation [...] (test code = TP) 7.6 gm/dl 6.4-8.1 [place] [address] URINE [id number] 10:45:00 Test Item Value Reference Range Interpretation Comments Color (test code = UCOLR) Yellow Lt. Yellow A Clarity (test code = UCLAR) Sl Cloudy Glucose (test code = UGLUC) NEGATIVE NEGATIVE N Bilirubin (test code = UBILI) NEGATIVE NEGATIVE N Ketones (test code = UKET) NEGATIVE NEGATIVE N Specific [place] (test code = 1.025 1.005-1.030 A USPGR) Blood (test code = UBLD) NEGATIVE NEGATIVE N PH (test code = UPH) 5.5 4.5-8.0 A Protein (test code = UPROT) NEGATIVE NEGATIVE N Urobilinogen (test code = U UROB) 0.2 >0.2 N Nitrite (test code = UNITR) NEGATIVE NEGATIVE N Leukocyte Esterase (test code = NEGATIVE NEGATIVE N ULEUK) [place] [address] , [id number] 10:45:00 Test Item Value Reference Range Interpretation Comments (Urine) (test code = Negative PREGU) [place] [address] [id number] 10:44:00 Test Item Value Reference Range Interpretation [...] code = MPV) 6.8 fL 8.0-11.0 A [facility]kinCT ABDOMEN/PELVIS W/AUWVODJM9482-41-17 12:29:19s/p hysterectomy; rlq painProcedure: CT ABDOMEN/PELVIS W/CONTRASTOrder Date: 01/27/2019 10:57 AMOrdering Provider: DR LEXUS CASTREJON ACOSTAClinical Indication: [id number]: Abdominal painComparison: September 30, 2018TECHNIQUE:The abdo men [...] MD 01/27/201912:23 PMDictated By: GLORY BENITEZKDate: 01/27/2019 12:23[facility] STARURINALYSIS WITH [id number] 12:10:00 Test Item Value Reference Range Interpretation Comments Color (test code = UCOLR) YELLOW Clarity (test code = UCLAR) CLEAR Glucose (test code = UGLUC) NEGATIVE NEGATIVE N Bilirubin (test code = UBILI) NEGATIVE NEGATIVE N Ketones (test code = UKET) NEGATIVE NEGATIVE N Specific [place] (test code = USPGR) <=1.005 1.005-1.030 A [...] code = UBACT) Trace None Seen,Trace N [facility] HospitalXnxyga-IbhuhqYAMYUR8649-65-30 11:49:00 Test Item Value Reference Range Interpretation Comments Lipase (test code = LIPA) 91 U/L 73-[address] [facility] HospitalAMYLASE, [id number] 11:49:00 Test Item Value Reference Range Interpretation Comments Amylase (test code = AMYL) 45 U/L 25-115 [facility] LAB CHEM [id number] 11:25:00 Test Item Value Reference Range Interpretation [...] = CREA) 0.5 mg/dl 0.6-1.3 L [facility] LAB CBC WITH AUTO [id number] 11:23:00 Test Item Value Reference Range Interpretation [...] code = IG%) 0.6 % 0.0-0.[address] [facility] HospitalUS PELVIS [id number] 07:55:25h/o complex right ovarian cystsProcedure: Pelvic ultrasound.CLINICAL [...] 12/07/20187:49 AMDictated By:WILEY VELÁZQUEZDate: 12/07/2018 07:49MM OF UNION STARGLVZRWGKMKS5549-56-16 03:11:00 Test Item Value Reference Range Interpretation Comments Lipase (test code = LIPA) 136 U/L 73-[address] [facility] (LIVER)2018-12-07 03:10:00 Test Item [...] code = 0.1 mg/dl 0.0-1.1 IBIL) [facility] LAB CHEM [id number] 02:41:00 Test Item Value Reference Range Interpretation [...] = CREA) 0.5 mg/dl 0.6-1.3 L [facility] LAB CBC WITH AUTO [id number] 02:39:00 Test Item Value Reference Range Interpretation [...] code = IG%) 0.5 % 0.0-0.4 [facility] WITH [id number] 02:37:00 Test Item Value Reference Range Interpretation Comments Color (test code = UCOLR) YELLOW Clarity (test code = UCLAR) CLEAR Glucose (test code = UGLUC) 500 NEGATIVE A Bilirubin (test code = UBILI) NEGATIVE NEGATIVE N Ketones (test code = UKET) TRACE NEGATIVE A Specific [place] (test code = USPGR) >=1.030 1.005-1.030 A [...] code = UBACT) 2+ None Seen,Trace A [facility]ULTURE, [id number] 07:39:00CULTURE RIGHT ABDOMEN WOUND CARE DEPTSpecimen: AbdomenCollected: [...] Sc (+/-) Negative - ICR (+/-) Negative -[facility] CHEST AP/PA 1 [id number] 05:15:17Procedure: XR CHEST AP/PA 1 VIEWOrder Date: 09/30/2018 8:28 PMOrdering Provider: DIMAS Haskinsinical Indication: [id number]: Acute chest painComparison: May 13, 2017Findings:Cardiac size is magnified by technique.Pulmonary vasculature is normal.Mediastinal contour is normal.Aortic contour is normal.There is no consolidation or effusion.There is no evidence of active tuberculosis.There is no mass or pneumothorax.There is no skeletal abnormality.Impression: Negative AP portable chest x-ray.This final report was electronically signed by Dr Farzad Dewitt MD 10/01/20185:08 AMDictated By: FARZAD DEWITTDate: 10/01/2018 05:08 [facility]/O [id number] 00:42:26NPO 4 hours. Do not withhold medsEXAM:CT [...] 201812:42 AM CDT.Dictated By: REHAN AZARDate: 10/01/2018 00:42[facility] OF UNION [id number] 21:37:00 Test Item Value Reference Range Interpretation Comments Lipase (test code = LIPA) 82 U/L 73-[address] [facility]HEP[facility] FUNCTION PANEL (LIVER)2018-09-30 21:37:00 Test Item [...] code = 0.5 mg/dl 0.0-1.1 IBIL) [facility] LAB CHEM [id number] 21:10:00 Test Item Value Reference Range Interpretation [...] = CREA) 0.5 mg/dl 0.6-1.3 L [facility] LAB CBC WITH AUTO [id number] 21:09:00 Test Item Value Reference Range Interpretation [...] (test code = IG%) 0.3 % 0.0-0.[address] [facility] W/WO TUBE,[id number] 12:44:00 RUN DATE: 09/04/18 [facility] PAGE 1 RUN TIME: 1454 Specimen Inquiry RUN USER: INTERFACE --PATIENT: LAUREN BETH [facility] #: [id number] AGE/SX: 33/F ROOM: [facility] RE09/02/18REG DR: Elmer Flores : 87 BED: A DIS: 09/03/18 STATUS: DIS Coty TLOC: SPEC #: [id number] RECD: 09/02/18 STATUS: KWAME GARCIA #: [id number] MELISSA: 09/02/18- SUBM DR: Elmer Flores III ENTERED: 09/03/18 SP TYPE: MUSA PELAYO DR: ORDERED: LEVEL IV CODES: [id number] - OVARY, NOS PROCEDURES: LEVEL IV (Incomplete) TISSUES: OVARY, NOS - RIGHT OVARIAN CYST CLINICAL HISTORY 33 year old, acute pelvic pain (wpd) FINAL DIAGNOSIS Right ovarian cyst, excision: - benign simple cyst of ovary Tissue code 1 CPT code(s): 59985 [facility] 09/04/18 GROSS DESCRIPTION ANATOMIC SOURCE OF TISSUE [...] multiple yellow-orange, centrally hemorrhagic corpora lutea. 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 [...] NORMAL NORMAL code = PLTMR) CHEMISTRY 7 [id number] 14:15:00 Test Item Value Reference Range Interpretation [...] CA) 9.2 mg/dL 8.4-10.2 N CBC W/AUTO [id number] 13:42:00 Test Item Value Reference Range Interpretation [...] NORMAL NORMAL code = PLTMR) US INTRAVAGINAL [id number] 12:35:09Procedure: Pelvic ultrasound.CLINICAL INDICATION: Pelvic pain. Status [...] MD 09/01/201812:28 PMDictated By: WILEY VELÁZQUEZDate: 09/01/2018 12:28[facility] CBC WITH AUTO [id number] 11:31:00 Test Item Value Reference Range Interpretation [...] RS88 71 on 09/01/2018 11:31 ONLY AVAILABLE [address] [place] [address]-[place] ABDOMEN/PELVIS W/O [id number] 11:11:01MLP CProcedure: CT ABDOMEN/PELVIS W/O CONTRASTOrder Date: 09/01/2018 9:28 AMOrdering Provider: CHIN LORENZANAClinical Indication: [id number]: Abdominal pain. Left lower quadrant painComparison: 12/24/2017TECHNIQUE:CT [...] Benitez MD 09/01/201811:04 AMDictatedBy: GLORY BENITEZKDate: 09/01/2018 11:04[facility] [id number] 10:26:00 Test Item Value Reference Range Interpretation [...] CREA) 0.4 mg/dl 0.6-1.3 L ONLY AVAILABLE [address] [place] [address] LAB URINALYSIS WITHOUT [id number] 09:59:00 Test Item Value Reference Range Interpretation Comments Color (test code = UCOLR) Yellow Lt. Yellow A Clarity (test code = UCLAR) Clear Glucose (test code = UGLUC) NEGATIVE Negative A Bilirubin (test code = UBILI) NEGATIVE Negative A Ketones (test code = UKET) NEGATIVE Negative A Specific [place] (test code = USPGR) 1.015 1.005-1.030 A Blood (test code = UBLD) NEGATIVE Negative A PH (test code = UPH) 7.0 4.5-8.0 A Protein (test code = UPROT) NEGATIVE Negative A Urobilinogen (test code = U UROB) 0.2 >0.2 N Nitrite (test code = UNITR) NEGATIVE Negative A Leukocyte Esterase (test code = NEGATIVE Negative A ULEUK) ONLY AVAILABLE [address] [place] [address]-[facility] INTRAVAGINAL PELVIS 2018-05-13 13:26:23Procedure: Pelvic ultrasound.CLINICAL INDICATION: [...] PMDictated By: WILEY VELÁZQUEZDate: 05/13/2018 13:20[facility] LAB CBC WITH AUTO [id number] 12:22:00 Test Item Value Reference Range Interpretation [...] code = 0.2 % 0.0-0.4 IG%) [facility] LAB CBC WITH AUTO [id number] 11:54:00 Test Item Value Reference Range Interpretation [...] 10\\S\\3/ul 130-400 LL CALLED T O PINA Barnes/RB/ = PLT) JMF RDW (test code = [...] 0.5 % 0.0-0.4 H IG%) ONLY AVAILABLE [address] [place] [address] LAB URINALYSIS WITHOUT [id number] 11:25:00 Test Item Value Reference Range Interpretation Comments Color (test code = UCOLR) Yellow Lt. Yellow A Clarity (test code = UCLAR) Clear Glucose (test code = UGLUC) NEGATIVE Negative A Bilirubin (test code = UBILI) NEGATIVE Negative A Ketones (test code = UKET) NEGATIVE Negative A Specific [place] (test code = USPGR) 1.020 1.005-1.030 A Blood (test code = UBLD) NEGATIVE Negative A PH (test code = UPH) 7.0 4.5-8.0 A Protein (test code = UPROT) NEGATIVE Negative A Urobilinogen (test code = U UROB) 0.2 >0.2 N Nitrite (test code = UNITR) NEGATIVE Negative A Leukocyte Esterase (test code = NEGATIVE Negative A ULEUK) ONLY AVAILABLE [address] [place] [address] LAB , URINE 2018-05-13 11:25:00 Test Item Value Reference Range Interpretation Comments (Urine) (test code = Negative PREGU) ONLY AVAILABLE [address] [place] [address] LAB CHEM [id number] 11:23:00 Test Item Value Reference Range Interpretation [...] CREA) 0.5 mg/dl 0.6-1.3 L ONLY AVAILABLE [address] [place] [address] INTRAVAGINAL PELVIS 2017-12-24 12:50:53Procedure: Pelvic ultrasound.CLINICAL INDICATION: [...] MD 12/24/201712:44 PMDictated By: WILEY VELÁZQUEZDate: 12/24/2017 12:50[facility] WITH [id number] 10:22:00 Test Item Value Reference Range Interpretation Comments Color (test code = UCOLR) Yellow Clarity (test code = UCLAR) Clear Glucose (test code = UGLUC) NEGATIVE NEGATIVE N Bilirubin (test code = UBILI) NEGATIVE NEGATIVE N Ketones (test code = UKET) NEGATIVE NEGATIVE N Specific [place] (test code = USPGR) 1.025 1.005-1.030 A [...] code = UBACT) Trace None Seen,Trace N [facility] AntonioLIPASE, [id number] 10:05:00 Test Item Value Reference Range Interpretation Comments Lipase (test code = LIPA) 40 U/L 8-223 [facility]-[id number] 10:05:00 Test Item Value Reference Range Interpretation [...] ( 4 - SerumAlbumin)] EGFR if >60 [place] (test code mL/min/1.73m\\ = EGFRAA) S\\2 EGFR if Non- >60 Estimate d Glomerular [place] (test code mL/min/1.73m\\ Filtrat ion Rate (eGFR) [...] and management of c hronic kidney failure. [facility]/ PELVIS W/O CON (RENAL STONE)2017-12-24 09:38:31Procedure: CT ABD/ PELVIS W/O CON (RENAL STONE)Order date: 12/24/2017 8:36 AMOrdering Provider: Julian Indication: ABD PAIN: Pain- Abdominalbilateral flank pain [...] MD 12/24/20179:32 AMDictated By: WILEY VELÁZQUEZDate: 12/24/2017 09:38[facility] WITH AUTO DIFF 2017-12-24 09:26:00 Test Item [...] 0.6 % 0.0-0.4 H IG%) AUTO [facility]/ PELVIS W/O CON (RENAL STONE) 2017-06-21 [...] 3:19 AM CDT.Dictated By: MARVIN DOBBSDate: 06/21/2017 03:20[facility] OF [facility] STARURINALYSIS WITH [id number] 03:20:00 Test Item Value Reference Range Interpretation Comments Color (test code = UCOLR) YELLOW Clarity (test code = UCLAR) CLEAR Glucose (test code = UGLUC) NEGATIVE NEGATIVE N Bilirubin (test code = UBILI) NEGATIVE NEGATIVE N Ketones (test code = UKET) NEGATIVE NEGATIVE N Specific [place] (test code = 1.020 1.005-1.030 A USPGR) [...] = UBACT) None Seen None Seen,Trace N [address]-[id number] 03:07:00 Test Item Value Reference Range Interpretation [...] exist (test code = for corrected s ejison CALCCORR) calcium results , each yielding differ ent values. This co rrected result was base d on the formula: Co rrected Calcium = Serum Calcium + [0.8 * ( 4 - SerumAlbumin)] EGFR if >60 [place] (test code mL/min/1.73m\\ = EGFRAA) S\\2 EGFR if Non- >60 Estimate d Glomerular [place] (test code mL/min/1.73m\\ Filtrat ion Rate (eGFR) [...] and management of c hronic kidney failure. [address]-[place]kinLIPASE, [id number] 03:07:00 Test Item Value Reference Range Interpretation Comments Lipase (test code = LIPA) 61 U/L 8-[address]-[place]CBC WITH AUTO [id number] 03:05:00 Test Item Value Reference Range Interpretation [...] code = 0.4 % 0.0-0.4 IG%) er [address] [place] [address]-[place]XR CHEST 2 PA [id number] 19:56:04 Procedure: XR CHEST 2 PA LATERALExam date: 05/13/2017 3:53 PMOrdering Provider: DR ASA BLOOMClinical Indication: fatigue, Chest painComparison: March 15, 2016Findings:Cardiomediastinal silhouette is within normal limits.The lungs are clear.No pleural effusion or pneumothorax. Osseous structures are nonacute.No evidence of active tuberculosis.Impression:No acute cardiopulmonary process.This final report was electronically signed by Dr Wiley Velázquez MD 05/13/20177:49 PMDictated By: WILEY VELÁZQUEZDate: 05/13/2017 19:55[facility] OF UNION [id number] 16:53:00 Test Item Value Reference Range Interpretation [...] ( 4 - SerumAlbumin)] EGFR if >60 [place] (test code mL/min/1.73m\\ = EGFRAA) S\\2 EGFR if Non- >60 Estimate d Glomerular [place] (test code mL/min/1.73m\\ Filtrat ion Rate (eGFR) [...] and management of c hronic kidney failure. [facility] (HEMOGRAM ONLY)2017-05-13 16:32:00 Test Item Value Reference [...] WILL BE NOTED ON THE RE PORT. [facility]URINALYS[facility] WITH [id number] 18:25:00 Test Item Value Reference Range Interpretation Comments Color (test code = UCOLR) YELLOW Clarity (test code = UCLAR) CLEAR Glucose (test code = UGLUC) NEGATIVE NEGATIVE N Bilirubin (test code = UBILI) NEGATIVE NEGATIVE N Ketones (test code = UKET) NEGATIVE NEGATIVE N Specific [place] (test code = 1.025 1.005-1.030 A USPGR) [...] UR MISC) None Seen None Seen N [facility]HEP[facility] FUNCTION PANEL (LIVER)2016-10-09 18:21:00 Test Item Value [...] (test code = 0.1 mg/dl 0.0-1.1 IBIL) [facility]-[id number] 18:21:00 Test Item Value Reference Range Interpretation [...] mg/dl 8.4-10.2 = CALC) EGFR if >60 [place] (test code mL/min/1.73m\\ = EGFRAA) S\\2 EGFR if Non- >60 Estimate d Glomerular [place] (test code mL/min/1.73m\\ Filtrat ion Rate (eGFR) [...] and management of c hronic kidney failure. [facility]kinCBC WITH AUTO [id number] 18:04:00 Test Item Value Reference Range Interpretation [...] Auto (test code = 0 NRBC_AUTO) AUTO [facility]
[2022-05-17] MEDS ORDERED: PROMETHAZINE INJ 25 MG/ML AMP ONE (00:50)
[2022-05-17] MEDS ORDERED: FENTANYL CITR 100 MCG/2 ML ONE ×2 (00:50→01:39)
[2022-05-17 01:51] LABS: Urine Blood Negative (Negative); Urine Glucose Negative (Negative); Urine Protein Negative (Negative); Urine Specific Gravity >=1.030 (1.005-1.030)
[2022-05-17 02:31] LABS: Absolute Lymphocytes (CBC) 2.1 K/uL (0.7-4.9); Lymphocytes % 29.9 % (15.3-44.8); MCV 88.5 fL (80-100); MPV 7.3 fL (7.6-11.3); RBC Red Blood Cell Count 4.07 M/uL (3.86-4.86)
[2022-05-17 02:40] LABS: Albumin 3.3 g/dL (3.4-5.0); Bilirubin Total 0.2 mg/dL (0.2-1.0); Potassium 3.7 mmol/L (3.5-5.1); Protein, Total 7.1 g/dL (6.4-8.2)
[2022-05-17 02:42] LABS: Calcium Oxalate Crystals- Ur Few /HPF (None Seen); Urine Bacteria <20 /HPF (<20); Urine Mucus 1+ /HPF (None Seen); Urine RBC <5 /HPF (None Seen)
--- NOTE | 2022-05-17 02:59 | EDPHYS ---
Physician Documentation [facility] Name: Hong Pace Age: 36 yrs Sex: Female : 1985 Arrival Date: 05/16/2022 Time: 23:52 Bed 11 Private MD: ED Physician Aleks Solis HPI: 05/17 02:23 This 36 yrs old Female presents to ER via Ambulatory with complaints of Possible Kidney rt Stone. 02:23 The pain radiates. Onset: The symptoms/episode began/occurred 2 hour(s) ago. Modifying rt factors: The symptoms are alleviated by. Associated signs and symptoms: Pertinent positives: nausea, vomiting. Severity of pain: At its worst the pain was moderate. The patient has experienced similar episodes in the past. With known kidney stones presents to the ED with a right-sided flank pain rating to the lower abdominal region. This is consistent with prior kidney stones. Patient was recently diagnosed with 1 about 1 week ago. She reports nausea, vomiting but no other symptoms. Pain is aching nature, nonradiating otherwise, moderate severity, no other aggravating or alleviating factors.. 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 - Social history:: Smoking status: Patient reports the use of cigarette tobacco products, I pack per week. - Family history:: not pertinent. ROS: 02:23 Constitutional: Negative for fever, chills, and weight loss, Eyes: Negative for injury, rt pain, redness, and discharge, ENT: Negative for injury, pain, and discharge, Neck: Negative for injury, pain, and swelling, Cardiovascular: Negative for chest pain, palpitations, and edema, Respiratory: Negative for shortness of breath, cough, wheezing, and pleuritic chest pain, MS/Extremity: Negative for injury and deformity, Skin: Negative for injury, rash, and discoloration, Neuro: Negative for headache, weakness, numbness, tingling, and seizure, Psych: Negative for depression, anxiety, suicide ideation, homicidal ideation, and hallucinations. 02:23 Abdomen/GI: Positive for positive for flank pain, nausea, vomiting. Exam: 02:23 Constitutional: This is a well developed, well nourished patient who is awake, alert, rt and in no acute distress. Head/Face: Normocephalic, atraumatic. Eyes: Pupils equal round and reactive to light, extra-ocular motions intact. Lids and lashes normal. Conjunctiva and sclera are non-icteric and not injected. Cornea within normal limits. Periorbital areas with no swelling, redness, or edema. Chest/axilla: Normal chest wall appearance and motion. Nontender with no deformity. No lesions are appreciated. Cardiovascular: Regular rate and rhythm with a normal S1 and S2. No gallops, murmurs, or rubs. Normal PMI, no JVD. No pulse deficits. Respiratory: Lungs have equal breath sounds bilaterally, clear to auscultation and percussion. No rales, rhonchi or wheezes noted. No increased work of breathing, no retractions or nasal flaring. Skin: Warm, dry with normal turgor. Normal color with no rashes, no lesions, and no evidence of cellulitis. MS/ Extremity: Pulses equal, no cyanosis. Neurovascular intact. Full, normal range of motion. Neuro: Awake and alert, GCS 15, oriented to person, place, time, and situation. Cranial nerves II-XII grossly intact. Motor strength 5/5 in all extremities. Sensory grossly intact. Cerebellar exam normal. Normal gait. Psych: Awake, alert, with orientation to person, place and time. Behavior, mood, and affect are within normal limits. 02:23 Abdomen/GI: right Costovertebral angle tenderness, no abdominal tenderness, distention. Vital Signs: 00:34 BP 147 / 117; Pulse 111; Resp 18; Temp 97.5; Pulse Ox 100% on R/A; vc1 MDM: 00:18 Patient medically screened. rt 02:59 Differential diagnosis: nephrolithiasis, pyelonephritis. Data reviewed: vital signs, rt old medical records, lab test result(s). ED course: Presents to the ED with recurrence of renal colic symptoms. She had a recent CT scan that did show a 3 mm stone. She has had multiple CT scans, after discussion with patient, we will forego repeat imaging to save on radiation. There is hematuria without evidence of infection. Labs are stable. Patient with significant symptomatic relief with pain medications in the ED, still for outpatient care, she already has an appoint with her urologist, she is stable to keep this appointment.. 05/17 00:39 Order name: CMP; Complete Time: 02:56 rt 05/17 00:39 Order name: CBC with Diff; Complete Time: 02:40 rt 05/17 00:39 Order name: UA MICROSCOPIC; Complete Time: 02:56 rt 05/17 01:51 Order name: Urine Culture mw2 05/17 01:51 Order name: Urine Dipstick-Ancillary EDMS 05/17 01:50 Order name: Urine Dipstick-Ancillary (obtain specimen); Complete Time: 01:50 mw2 Administered Medications: 01:17 Drug: fentaNYL (PF) 100 mcg Route: IVP; Site: left forearm; vc1 01:17 Drug: Phenergan (promethazine) 12.5 mg Route: IVP; Site: left forearm; vc1 02:11 Drug: fentaNYL (PF) 100 mcg Route: IM; Site: left vastus lateralis; vc1 Disposition Summary: 05/17/22 02:59 Discharge Ordered Location: Home rt Problem: an acute exacerbation rt Symptoms: have improved rt Condition: Stable rt Diagnosis - Calculus of ureter rt Followup: rt - With: Private Physician - When: 2 - 3 days - Reason: Discharge Instructions: - Discharge Summary Sheet rt - Renal Colic rt Forms: - Medication Reconciliation Form rt - Thank You Letter rt - Antibiotic Education rt - Prescription Opioid Use rt Signatures: Dispatcher [employer] EDMS Devin Izaguirre mw2 Alejandra Soelr RN RN vc1 Aleks Solis MD MD rt Corrections: (The following items were deleted from the chart) 01:54 00:39 URINALYSIS+U.LAB.BRZ ordered. EDOH EDMS
--- NOTE | 2022-05-17 02:59 | ER ---
Nurse's Notes [facility] Name: Hong Pace Age: 36 yrs Sex: Female : 1985 Arrival Date: 05/16/2022 Time: 23:52 Bed 11 Private MD: Diagnosis: Calculus of ureter Presentation: 05/17 00:34 Chief complaint: Patient states: "About 10 oclock I started having really bad abdominal vc1 pain. I know I have a kidney stone.". Coronavirus screen: Vaccine status: Patient reports being unvaccinated. At this time, the client does not indicate any symptoms associated with coronavirus-19. Ebola Screen: No symptoms or risks identified at this time. Initial Sepsis Screen: Does the patient meet any 2 criteria? No. Patient's initial sepsis screen is negative. Does the patient have a suspected source of infection? No. Patient's initial sepsis screen is negative. Risk Assessment: Do you want to hurt yourself or someone else? Patient reports no desire to harm self or others. Onset of symptoms was May 17, 2022. 00:34 Method Of Arrival: Ambulatory vc1 00:34 Acuity: [place] 3 vc1 Triage Assessment: 00:39 General: Appears in no apparent distress. uncomfortable, Behavior is Pacing. Pain: vc1 Complains of pain in abdomen. Neuro: Level of Consciousness is awake, Oriented to person, place, time, situation, Appropriate for age. GI: Reports lower abdominal pain. : Reports cramping, in right flank(s). Derm: No deficits noted. Musculoskeletal: No deficits noted. 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 - Social history:: Smoking status: Patient reports the use of cigarette tobacco products, I pack per week. - Family history:: not pertinent. Screenin:41 Abuse screen: Denies threats or abuse. Nutritional screening: No deficits noted. vc1 Tuberculosis screening: No symptoms or risk factors identified. Fall Risk None identified. Assessment: 03:29 Reassessment: No changes from previously documented assessment. Patient and/or family vc1 updated on plan of care and expected duration. Pain level reassessed. Patient is alert, oriented x 3, equal unlabored respirations, skin warm/dry/pink. Patient states feeling better. Patient states symptoms have improved. Vital Signs: 00:34 BP 147 / 117; Pulse 111; Resp 18; Temp 97.5; Pulse Ox 100% on R/A; vc1 ED Course: 05/16 23:52 Patient arrived in ED. bp1 05/17 00:14 Aleks Solis MD is Attending Physician. rt 00:38 Triage completed. vc1 00:40 Arm band placed on right wrist. vc1 01:30 Patient has correct armband on for positive identification. Placed in gown. vc1 03:28 No provider procedures requiring assistance completed. IV discontinued, intact, vc1 bleeding controlled, No redness/swelling at site. Pressure dressing applied. Administered Medications: 01:17 Drug: fentaNYL (PF) 100 mcg Route: IVP; Site: left forearm; vc1 01:17 Drug: Phenergan (promethazine) 12.5 mg Route: IVP; Site: left forearm; vc1 02:11 Drug: fentaNYL (PF) 100 mcg Route: IM; Site: left vastus lateralis; vc1 Medication: 03:29 VIS not applicable for this client. vc1 Outcome: 02:59 Discharge ordered by . rt 03:28 Discharged to home ambulatory. vc1 03:28 Condition: good 03:28 Condition: good 03:28 Discharge instructions given to patient, Instructed on discharge instructions, follow up and referral plans. Demonstrated understanding of instructions, follow-up care. 03:29 Patient left the ED. vc1 Signatures: Yoselyn Hoffmann bp1 Alejandra Soler, RN RN vc1 Aleks Solis MD MD rt
[2022-05-17 03:40] VITALS: BP 147/117; TEMP 97.5; O2SAT 100
== END 2022-05-17 03:29 | disposition home or self-care (01) ==
LOC: ER 23:48
DX: N20.1 Calculus of ureter (principal); Z88.6 Allergy status to analgesic agent
CPT/HCPCS: 36415; 80053; 81003; 81015; 85025; 87086; 87088; 96372; 96374; 96375; 99283; J2550; J3010

== ENCOUNTER 2022-06-05 08:22 | Emergency (ER) | payer SELFPAY ==
--- OUTSIDE RECORDS SUMMARY | 2022-06-05 08:41 | XMS REPORT | Continuity of Care Document ---
:1985 Author Organization [facility] t Address [address] [place] [address] Care Team Providers Name Role Phone Keila Valentine MD Primary Care Physician Josué Arango Attending Clinician Unavailable SANTINO_Ingrid_Truman_ Attending Clinician Unavailable RIDGE PAGAN Attending Clinician Unavailable Ridge Pagan MD Attending Clinician Truman Quintero Attending Clinician Unavailable TRICE HARRIS Attending Clinician Unavailable Trice Strickland Attending Clinician Green BUSINESS CONSULTANT, Ameena Attending Clinician AMEENA CASTANEDA Attending Clinician Unavailable Praveen Blas MD Attending Clinician EKTA BERMUDEZ Attending Clinician Unavailable PATRICK CARRANZA Attending Clinician Unavailable Olga Clements Attending Clinician Unavailable Lozoyayovany GARCIA, Leanne S Attending Clinician LOZOYA, LEANNE S Attending Clinician Unavailable SHARA GRIMM Attending Clinician Unavailable Andie LEGER, Eve Whiting Attending Clinician Unavailable Tere KNOWLES, Patrick Attending Clinician Doctor Unassigned, [place] Attending Clinician Unavailable SETH DYKES Attending Clinician Unavailable REHAN COTTON Attending Clinician Unavailable Adriana LEGER, Viktoriya Merritt Attending Clinician JUAN MENSAH Attending Clinician Unavailable [...] Primary or Family Admitting Clinician UnavailLEANNE Chino S Admitting Clinician Unavailable SETH DYKES Admitting [...] Number Effective Date Expiration Date Abhinav durbin [id number] 1958 00:00:00 MEDI-SHARE C1 [id number] [facility] MEDI-SHARE C1 [id number] [facility] MEDI-SHARE C1 [id number] [facility] [id number] 1958 00:00:00 MEDI-SHARE C1 [id number] 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 Allergies, Adverse Reactions, Alerts Allergy Allergy Status Severity Reaction(s) Onset Inactive Treating Comm ents Source Name Type Date Date Clinician [place] DA Active [place] rash 2021-07 [facility] [place] 00[facility]: [facility] ket[place]ola DA Active [facility] rash [facility] 2-07 [place] 00:00: Orthope 00 [facility] l KETOROLA DRUG Active Low Rash 2020-07 Univers C INGREDI 2- ity of 00:00: [place] 00 Medical Branch Ketorola Propensi Active Rash 2020-07 Univer s c ty to 2-22 ity of adverse 00:00: [place] reaction 00 [facility] Branch ket[place]ola DA Active [place] [facility] c 9-10 [facility] 00[facility] [place] ketorola DA Active U [facility] c 03-24 [place] 00:[facility]: d 00 [facility] ketorola DA Active U rash [facility] c 03-24 [place] 00:00: d 00 [facility] Ketorola Drug Active Itching Univers c Allergy 07-19 ity of 00:00: [place] 00 MD [facility] 0 Drug Active Unknown Common allergy [facility] Family History Family Member Diagnosis Comments Start Date Stop Date Source Natural mother -Breast cancer Univer [facility]ity [facility] [place] MD Disla Cance r [place] Social History Social Habit Start Date Stop Date Quantity Comments Source History of Tobacco [facility] - Use [facility] ASSERTION [facility] [place] [facility] Exposure to 2022-04-27 2022-05-07 Not sure [facility] SARS-CoV-2 (event) 00:00:00 07:55:00 [facility] Tobacco use and 2021-08-29 2021-08-29 Smokeless Universit y of exposure 00:00:00 00:00:00 tobacco non-user [facility] Alcohol intake 2018-10-04 2018-10-04 Current University 00:00:00 00:00:00 non-drinker of [place] MD Lila mu[facility] (finding) Cigarettes smoked 2018-09-04 2018-09-04 Univers ity of current (pack per 00:00:00 00:00:00 [facility] Chin ) - Reported Cancer Ce nter Cigarette 2018-09-04 2018-09-04 University of pack-years 00:00:00 00:00:00 [place] MD [facility] Sex Assigned At [birth year] [facility] 00:[facility]00 [facility] Smoking Status Start Date Stop Date Source Tobacco smoking [facility] consumption unknown Never smoked tobacco [facility] [place] [facility] Former Smoker 2020-05-03 00:00:00 2020-05-03 [facility] 00[facility]00 [facility] Medical Ce nter Medications Ordered Filled Start [...] n: Perioperat kieran Patient tamsulosin 2021-07 Yes [id number] .4mg Take 1 U nivers 0.4 mg [...] Branch 02/19/22 at 0930, JOSE methylPREDN Yes [id number] Take by [facility] ISolone 11-29 mouth ity of (MEDROL, 00:00: SEE-INSTRU Jacques as TE,) 4 mg 00 CTIONS. Medica l tablets follow Branch package directions methylPREDN 0 Yes [id number] Take by [facility] ISolone 11-29 mouth ity of (MEDROL, 00:00: SEE-INSTRU Jacques as TE,) 4 mg 00 CTIONS. Medica l tablets follow Branch package directions methylPREDN 0 Yes [id number] Take by [facility] ISolone 11-29 mouth ity of (MEDROL, 00:00: SEE-INSTRU Jacques as TE,) 4 mg 00 CTIONS. Medica l tablets follow Branch package directions amoxicillin 2021- No [id number] 1{tbl} Take 1 Univers -clavulanat 11-29 tablet by it y of e [id number] 00:00: 04:59 mouth 2 [place] mg per 00 :00 (two) Medical tablet times Branch daily for 7 days. codeine-gua 2021- No [id number] 5mL Take 5 mL [facility] ifenesin 11-29 by mouth ity of 10-100 mg/5 00:00: 04:59 every 6 [place] mL oral 00 :00 (six) Medical solution hours as Branch needed for Cough for up to 7 days. Indication s: acute pain estrogens, Yes Take by [facility] ers conjugated 3- mouth. ity of (PREMARIN 16:19: [place] ORAL) 44 Medical Branch estrogens, Yes Take by [facility] ers conjugated 3-01 mouth. ity of (PREMARIN 16:19: [place] ORAL) 44 Medical Branch estrogens, 0 Yes Take by [facility] ers conjugated 3-01 mouth. ity of (PREMARIN 16:19: [place] ORAL) 44 Medical Branch naproxen 0 Yes [id number] 500mg Take 1 U nivers (NAPROSYN) 2-02 tablet by ity of 500 mg 00:00: mouth 2 [place] tablet 00 (two) Medical times Branch daily with meals. naproxen Yes [id number] 500mg Take 1 U nivers (NAPROSYN) 2-02 tablet by ity of 500 mg 00:00: mouth 2 [place] tablet 00 (two) Medical times Branch daily with meals. naproxen Yes [id number] 500mg Take 1 U nivers (NAPROSYN) 2-02 tablet by ity of 500 mg 00:00: mouth 2 [place] tablet 00 (two) Medical times Branch daily with meals. albuterol 2020-07 Yes [id number] 2{puff} Inhale 2 Univers 90 2-22 Puffs [...] Cough. Indication s: cough albuterol 2020-07 Yes [id number] 2{puff} Inhale 2 Univers 90 2-22 Puffs [...] Cough. Indication s: cough albuterol 2020-07 Yes [id number] 2{puff} Inhale 2 Univers 90 2-22 Puffs [...] [facility] 00:00: - [facility] 00 [facility] Premarin Premarin 2018-07 No 1{table QD Premarin 1.25 MG 1.25 MG 0-23 t} 1.25 MG 00:00: 00 estrogens, 2018-07 Yes Take by Univ ers conjugated 0-23 mouth ity of (PREMARIN 00:00: daily. [place] ORAL) 00 MD Gian payton [facility] estrogens, 2018-07 Yes Take by Univ ers conjugated 0-23 mouth ity of (PREMARIN 00:00: daily. [place] ORAL) 00 [facility], [facility]-07 Yes Take by Univ ers conjugated 0-23 mouth ity of (PREMARIN 00:00: daily. [place] ORAL) 00 MD Gian payton [facility] estrogens, 2018-07 Yes Take by Univ ers conjugated 0-23 mouth ity of (PREMARIN 00:00: daily. [place] ORAL) 00 MD Gian payton [facility] estrogens, 2018-07 Yes Take by Univ ers conjugated 0-23 mouth ity of (PREMARIN 00:00: daily. [place] ORAL) [facility] estrogens, 2018-07 Yes Take by Univ ers conjugated 0-23 mouth ity of (PREMARIN 00:00: daily. [place] ORAL) [facility] tata [facility] estrogens, 2018-07 Yes Take by Univ ers conjugated 0-23 mouth ity of (PREMARIN 00:00: daily. [place] ORAL) [facility] estrogens, 2018-07 Yes Take by Univ ers conjugated 0-23 mouth ity of (PREMARIN 00:00: daily. [place] ORAL) [facility] estrogens, 2018-07 Yes Take by Univ ers conjugated 0-23 mouth ity of (PREMARIN 00:00: daily. [place] ORAL) [facility] estrogens, 2018-07 Yes Take by Univ ers conjugated 0-23 mouth ity of (PREMARIN 00:00: daily. [place] ORAL) 00 [facility] estrogens, 2018-07 Yes Take by Univ ers conjugated 0-23 mouth ity of (PREMARIN 00:00: daily. [place] ORAL) 00 [facility] estrogens, 2018-07 Yes Take by Univ ers conjugated 0-23 mouth ity of (PREMARIN 00:00: daily. [place] ORAL) 00 [facility] Estradiol Estradiol 2018-07 Yes Kaywin 1 tablet Common 0-01 [facility] 00:00: - [facility] 00 [facility] citalopram Yes Univers (CeleXA) 40 9-10 ity of mg tablet 00:00: [place] 00 MD [facility] citalopram Yes Univers (CeleXA) 40 9-10 ity of mg tablet 00:00: [place] MD Gian payton [facility] citalopram Yes Univers (CeleXA) 40 9-10 ity of mg tablet 00:00: MD Gian payton [facility] citalolucile [facility] 0 Yes Univers (CeleXA) 40 9-10 ity of mg tablet 00:00: MD Gian payton [facility] Yes Univers (CeleXA) 40 9-10 ity of mg tablet 00:00: MD Gian payton [facility] Yes Univers (CeleXA) 40 9-10 ity of mg tablet 00:00: MD Gian payton [facility] citalolucile [facility] Yes Univers (CeleXA) 40 9-10 ity of mg tablet 00:00: MD Gian payton [facility] citalolucile [facility] Yes Univers (CeleXA) 40 9-10 ity of mg tablet 00:00: MD Gian payton [facility] Yes Univers (CeleXA) 40 9-10 ity of mg tablet 00:00: MD Gian payton [facility] Yes Univers (CeleXA) 40 9-10 ity of mg tablet 00:00: MD Gian payton [facility] citalolucile [facility] 0 Yes Univers (CeleXA) 40 9-10 ity of mg tablet 00:00: MD Gian payton [facility] citalopra 0 Yes Univers (CeleXA) 40 9-10 ity of mg tablet 00:00: MD Gian payton [facility] levothyroxi Yes Univer s ne 175 mcg 8-10 ity of cap 00:00: MD Gian payton [facility] levothyroxi Yes Univer s ne 175 mcg 8-10 ity of cap 00:00: MD Gian payton [facility] levothyroxi Yes Univer s ne 175 mcg 8-10 ity of cap 00:00: MD Gian payton [facility] levothyroxi Yes Univer s ne 175 mcg 8-10 ity of cap 00:00: MD Gian payton [facility] levothyroxi Yes Univer s ne 175 mcg 8-10 ity of cap 00:00: MD Gian payton [facility] levothyroxi 2010-0 Yes Univer s ne 175 mcg 8-10 ity of cap 00:00: [place] 00 Tristianbrennan payton [facility] levothyroxi 2010-0 Yes Univer s ne 175 mcg 8-10 ity of cap 00:00: [place] 00 Tristianbrennan payton [facility] levothyroxi 2010-0 Yes Univer s ne 175 mcg 8-10 ity of cap 00:00: [place] 00 Tristianbrennan payton [facility] levothyroxi 2010-0 Yes Univer s ne 175 mcg 8-10 ity of cap 00:00: [place] 00 Tristianbrennan payton [facility] levothyroxi 2010-0 Yes Univer s ne 175 mcg 8-10 ity of cap 00:00: [place] 00 Tristianbrennan payton [facility] levothyroxi 2010-0 Yes Univer s ne 175 mcg 8-10 ity of cap 00:00: [place] 00 Tristianbrennan payton [facility] levothyroxi 2010-0 Yes Univer s ne 175 mcg 8-10 ity of cap 00:00: [place] 00 MD Gian payton [facility] zolpidem 2006-0 Yes Univers (AMBIEN) 10 07-01 ity of mg tablet 00:00: [place] 00 MD Gian payton [facility] zolpidem 2007-0 Yes Univers (AMBIEN) 10 07-01 ity of mg tablet 00:00: [place] 00 MD Gian payton [facility] zolpidem 2007-0 Yes Univers (AMBIEN) 10 07-01 ity of mg tablet 00:00: [place] 00 MD Gian payton [facility] zolpidem 2007-0 Yes Univers (AMBIEN) 10 07-01 ity of mg tablet 00:00: [place] 00 MD Gian payton [facility] zolpidem 2007-0 Yes Univers (AMBIEN) 10 07-01 ity of mg tablet 00:00: 00 MD Gian payton [facility] zolpidem 2007-0 Yes Univers (AMBIEN) 10 07-01 ity of mg tablet 00:00: [place] 00 MD Gian payton [facility] zolpidem 2007-0 Yes Univers (AMBIEN) 10 07-01 ity of mg tablet 00:00: [place] 00 MD Gian payton [facility] zolpidem 2007-0 Yes Univers (AMBIEN) 10 07-01 ity of mg tablet 00:00: [place] 00 MD [facility] zolpidem Yes Univers (AMBIEN) 10 07-01 ity of mg tablet 00:00: [place] 00 MD Gian payton [facility] zolpidem Yes Univers (AMBIEN) 10 07-01 ity of mg tablet 00:00: [place] 00 MD Gian payton [facility]olpidem Yes [facility] 10 07-01 ity of mg tablet 00:00: [place] 00 MD Gian payton [facility] zolpidem Yes Univers (AMBIEN) 10 07-01 ity of mg tablet 00:00: [place] 00 [facility] acetaminoph acetaminoph Yes 1 Q5.00H [facility] [...] C HI [facility] conjugated conjugated Gutierrez es (LONG-TERM) 1.25 (LONG-TERM) 1.25 Mem oria MG Oral MG Oral [...] [facility] conjugated conjugated daily Olamide kes (LONG-TERM) 1.25 (LONG-TERM) 1.25 Mem oria MG Oral MG Oral l Tablet Tablet (LUF/LI V/SA) levothyroxi levothyroxi Yes 150ug 1xD orally [facility] ne [facility] daily [facility] (LUF/LI V/SA) Celexa Celexa Yes Kaywin 1 tablet Commo n Aiden [facility] Levothyroxi Levothyroxi Yes Kaywin 1 tablet Common ne Sodium ne Sodium Aiden on an Sp karla empty - [facility]I stomach in [facility] Estradiol Estradiol Yes Kaywin 1 patch to Common Aiden skin [facility] Promethazin Promethazin No 1{table Promethazi e HCl 25 mg e HCl 25 mg t_as_ne ne HCl 25 eded} mg Estradiol Estradiol No 1{patch Estradiol 0.1 MG/24HR 0.1 MG/24HR _to_ski 0.1 n} MG/24HR Celexa 40 Celexa 40 No 1{table QD Celexa 40 MG MG t} MG Lockhart Lockhart No 1{table QID Lockhart 7.5-325 MG 7.5-325 MG t_as_ne 7.5-325 MG [...] Sodium 150 MCG 150 MCG 150 MCG Lockhart Lockhart No 1{table QID Lockhart 7.5-325 MG 7.5-325 MG t_as_ne 7.5-325 MG eded} Promethazin Promethazin No 1{table Promethazi e HCl 25 mg e HCl 25 mg t_as_ne ne HCl 25 eded} mg Estradiol Estradiol No 1{patch Estradiol 0.1 MG/24HR 0.1 MG/24HR _to_ski 0.1 n} MG/24HR Premarin Premarin No 1{table QD Premarin 1.25 MG 1.25 MG t} 1.25 MG Lockhart Lockhart No 1{table QID Lockhart 7.5-325 MG 7.5-325 MG t_as_ne 7.5-325 MG [...] 1.25 MG 1.25 MG t} 1.25 MG Lockhart Lockhart No 1{table QID Lockhart 7.5-325 MG 7.5-325 MG t_as_ne 7.5-325 MG [...] Influenza, 2011-03-30 Completed University of Unspecified 00:00:00 [place] MD Hamilton [facility] Tdap 2011-03-30 Completed University of 00:00:00 [place] [facility] Influenza, 2011-03-30 Completed University of Unspecified 00:00:00 [place] Alfonso [facility] Tdap 2011-03-30 Completed University of 00:00:00 [place] [facility] Influenza, 2011-03-30 Completed University of Unspecified 00:00:00 [place] MD Hamilton [facility] Tdap 2011-03-30 Completed University of 00:00:00 [place] [facility] Influenza, 2011-03-30 Completed University of Unspecified 00:00:00 [place] MD Hamilton [facility] Tdap 2011-03-30 Completed University of 00:00:00 [place] [facility] Influenza, 2011-03-30 Completed University of Unspecified 00:00:00 [place] MD Hamilton [facility] Tdap 2011-03-30 Completed University of 00:00:00 [place] [facility] Influenza, 2011-03-30 Completed University of Unspecified 00:00:00 [place] MD Hamilton [facility] Tdap 2011-03-30 Completed University of 00:00:00 [place] [facility] Influenza, 2011-03-30 Completed University of Unspecified 00:00:00 [place] MD Hamilton [facility] Tdap 2011-03-30 Completed University of 00:00:00 [place] [facility] Influenza, 2011-03-30 Completed University of Unspecified 00:00:00 [place] MD Hamilton [facility] Tdap 2011-03-30 Completed University of 00:00:00 [place] [facility] Influenza, 2011-03-30 Completed University of Unspecified 00:00:00 [place] MD Hamilton [facility] Tdap 2011-03-30 Completed University of 00:00:00 [place] [facility] Influenza, 2011-03-30 Completed University of Unspecified 00:00:00 [place] MD Hamilton [facility] Tdap 2011-03-30 Completed University of 00:00:00 [place] [facility] Influenza, 2011-03-30 Completed University of Unspecified 00:00:00 [place] MD Alfonso [facility] Tdap 2011-03-30 Completed University of 00:00:00 [place] MD Olvin banuelos [facility] Influenza, 2011-03-30 Completed University of Unspecified 00:00:00 [place] MD Alfonso hazel [facility] Tdap 2011-03-30 Completed University of 00:00:00 [place] MD Olvin banuelos [facility] Influenza (IM) 2009-04-05 Completed University of Preservative Free 00:00:00 [facility] Influenza (IM) 2009-04-05 Completed University of Preservative Free 00:00:00 [facility] Influenza (IM) 2009-04-05 Completed University of Preservative Free 00:00:00 [facility] Influenza (IM) 2009-04-05 Completed University of Preservative Free 00:00:00 [facility] Influenza (IM) 2009-04-05 Completed University of Preservative Free 00:00:00 [facility] Influenza (IM) 2009-04-05 Completed University of Preservative Free 00:00:00 [facility] Influenza (IM) 2009-04-05 Completed University of Preservative Free 00:00:00 [facility] Influenza (IM) 2009-04-05 Completed University of Preservative Free 00:00:00 [facility] Influenza (IM) 2009-04-05 Completed University of Preservative Free 00:00:00 [facility] Influenza (IM) 2009-04-05 Completed University of Preservative Free 00:00:00 [facility] Influenza (IM) 2009-04-05 Completed University of Preservative Free 00:00:00 [facility] Influenza (IM) 2009-04-05 Completed University of Preservative Free 00:00:00 [facility] Vital Signs Vital Name Observation Time Observation Value Comments Source Systolic blood 2022-05-07 14:46:22 138 mm[Hg] Univer sity of pressure [facility] Diastolic blood 2022-05-07 14:46:22 88 mm[Hg] Unive rsity of pressure [facility] Heart rate 2022-05-07 14:46:22 89 /min [facility] Respiratory rate 2022-05-07 14:46:22 20 /min Univ ersity [facility] [place] [facility] Oxygen saturation in 2022-05-07 14:46:22 98 /min University of Arterial blood by [facility] Pulse oximetry Branch Body temperature 2022-05-07 14:07:33 37 Ericka Univ ersity [facility] [place] [facility] Body height 2022-05-07 13:56:00 162.6 cm [facility] [place] [facility] Body weight 2022-05-07 13:56:00 108.863 kg [facility] [place] [facility] BMI 2022-05-07 13:56:00 41.20 kg/m2 [facility] [place] [facility] Systolic blood 2022-02-19 14:13:00 156 mm[Hg] Univer sity of pressure [place] [facility] Diastolic blood 2022-02-19 14:13:00 94 mm[Hg] Unive rsity of pressure [place] [facility] Heart rate 2022-02-19 14:13:00 111 /min [facility] [place] [facility] Body temperature 2022-02-19 14:13:00 37.11 Ericka Univ ersity [facility] [place] [facility] Respiratory rate 2022-02-19 14:13:00 22 /min Univ ersity [facility] [place] [facility] Body height 2022-02-19 14:13:00 162.6 cm [facility] [place] [facility] Body weight 2022-02-19 14:13:00 104.327 kg [facility] [place] [facility] BMI 2022-02-19 14:13:00 39.48 kg/m2 [facility] [place] [facility] Oxygen saturation in 2022-02-19 14:13:00 99 /min University of Arterial blood by [facility] Pulse oximetry Branch Systolic blood 2021-11-29 22:40:00 116 mm[Hg] Univer sity of pressure [place] [facility] Diastolic blood 2021-11-29 22:40:00 85 mm[Hg] Unive rsity of pressure [place] [facility] Heart rate 2021-11-29 22:40:00 87 /min [facility] [place] [facility] Body temperature 2021-11-29 22:40:00 37.28 Ericka Univ [facility] [place] [facility] Respiratory rate 2021-11-29 22:40:00 16 /min Univ [facility] [place] [facility] Body height 2021-11-29 22:40:00 162.6 cm [facility] Body weight 2021-11-29 22:40:00 103.874 kg [facility] BMI 2021-11-29 22:40:00 39.31 kg/m2 [facility] Oxygen saturation in 2021-11-29 22:40:00 98 /min University of Arterial blood by [facility] Pulse oximetry Branch Height 2021-04-23 00:58:00 162.56 [...] sity of pressure [facility] [place] Diastolic blood 2021-10-26 15:16:33 87 mm[Hg] Unive rsity of pressure [facility] Heart rate 2021-10-26 15:16:33 92 /min [facility] Respiratory rate 2021-10-26 15:16:33 16 /min [facility] Oxygen saturation in 2021-10-26 15:16:33 98 /min University Arterial blood by Jeffrey muñoz Pulse oximetry [facility] Body Temperature 2021-04-23 00:58:00 97.8 [degF] [facility] (LUF/DAVID/SA) Pulse Rate 2021-04-23 00:58:00 116 /min [facility] (LUF/DAVID/SA) Respiratory Rate 2021-04-23 00:58:00 18 /min [facility] (F/DAVID/SA) O2% BldC Oximetry 2021-04-23 00:58:00 99 % [facility] (LUF/DAVID/SA) BP Systolic 2021-04-23 00:58:00 111 mm[Hg] [facility] (LUF/DAVID/SA) BP Diastolic 2021-04-23 00:58:00 77 mm[Hg] [facility] (LUF/DAVID/SA) Height 2021-04-23 00:58:00 64 [in_i] [facility] (F/DAVID/SA) Weight 2021-04-23 00:58:00 105.1 kg [facility] (LUF/DAVID/SA) BMI (Body Mass 2021-04-23 00:58:00 40 kg/m2 [facility] (F/DAVID/SA) Body Temperature 2021-03-24 10:53:00 98.6 [degF] [facility] (LUF/DAVID/SA) Pulse Rate 2021-03-24 10:53:00 87 /min [facility] (F/DAVID/SA) Respiratory Rate 2021-03-24 10:53:00 18 /min [facility] (LUF/DAVID/SA) O2% BldC Oximetry 2021-03-24 10:53:00 97 % [facility] (LUF/DAVDI/SA) BP Systolic 2021-03-24 10:53:00 120 mm[Hg] [facility] (LUF/DAVID/SA) BP Diastolic 2021-03-24 10:53:00 86 mm[Hg] [facility] (LUF/DAVID/SA) Height 2021-03-24 10:53:00 64 [in_i] [facility]) Weight 2021-03-24 10:53:00 105 kg [facility] ([facility]/SA) BMI (Body Mass 2021-03-24 10:53:00 40 kg/m2 [facility]) [facility] (LUF/DAVID/SA) Body Temperature 2021-03-10 10:55:00 98.4 [degF] [facility] (LUF/DAVID/SA) Pulse Rate 2021-03-10 10:55:00 85 /min [facility] (F/DAVID/SA) Respiratory Rate 2021-03-10 10:55:00 20 /min [facility] (F/DAVID/SA) O2% BldC Oximetry 2021-03-10 10:55:00 100 % [facility] (LUF/DAVID/SA) BP Systolic 2021-03-10 10:55:00 140 mm[Hg] [facility] ([facility]ID/SA) BP Diastolic 2021-03-10 10:55:00 98 mm[Hg] [facility] (F/DAVID/SA) Height 2021-03-10 10:55:00 64 [in_i] [facility] ([facility]ID/SA) Weight 2021-03-10 10:55:00 105.2 kg [facility] ([facility]/DAVID/SA) BMI (Body Mass 2021-03-10 10:55:00 40 kg/m2 [facility]) [facility] (LUF/DAVID/SA) Pulse Rate 2021-02-23 12:32:00 67 /min [facility] ([facility]VID/SA) O2% BldC Oximetry 2021-02-23 12:32:00 98 % [facility] (LUF/DAVID/SA) BP Systolic 2021-02-23 12:32:00 112 mm[Hg] [facility] ([facility]VID/SA) BP Diastolic 2021-02-23 12:32:00 70 mm[Hg] [facility] ([facility]VID/SA) Heart Rate 2021-02-23 11:16:00 64 /min [facility] ([facility]/DAVID/SA) Respiratory Rate 2021-02-23 11:16:00 14 /min [facility] (F/DAVID/SA) Body Temperature 2021-02-23 08:24:00 98.1 [degF] [facility] (F/DAVID/SA) Height 2021-02-23 08:24:00 64 [in_i] [facility] (F/DAVID/SA) Weight 2021-02-23 08:24:00 110 kg [facility] (F/DAVID/SA) BMI (Body Mass 2021-02-23 08:24:00 41.9 kg/m2 [facility] (LUF/DAVID/SA) Heart Rate 2021-01-10 01:46:00 93 /min [facility] (F/DAVID/SA) Pulse Rate 2021-01-10 01:46:00 95 /min [facility] ([facility]VID/SA) Respiratory Rate 2021-01-10 01:46:00 16 /min [facility] (F/DAVID/SA) O2% BldC Oximetry 2021-01-10 01:46:00 97 % [facility] (LUF/DAVID/SA) BP Systolic 2021-01-10 01:46:00 103 mm[Hg] [facility] ([facility]ID/SA) BP Diastolic 2021-01-10 01:46:00 71 mm[Hg] [facility] (F/DAVID/SA) Weight 2021-01-10 00:53:00 102 kg [facility] ([facility]VID/SA) Body Temperature 2021-01-10 00:47:00 98.6 [degF] [facility] (LUF/DAVID/SA) Pulse Rate 2020-12-12 14:20:00 87 /min [facility] ([facility]F/DAVID/SA) O2% BldC Oximetry 2020-12-12 14:20:00 98 % [facility] (LUF/DAVID/SA) BP Systolic 2020-12-12 14:20:00 128 mm[Hg] [facility] ([facility]ID/SA) BP Diastolic 2020-12-12 14:20:00 86 mm[Hg] [facility] ([facility]ID/SA) Body Temperature 2020-12-12 12:39:00 98.9 [degF] [facility] (LUF/DAVID/SA) Respiratory Rate 2020-12-12 12:39:00 20 /min [facility] (LUF/DAVID/SA) Weight 2020-12-12 12:39:00 102 kg [facility] ([facility]ID/SA) Body Temperature 2020-12-08 10:27:00 98.6 [degF] [facility] (LUF/DAVID/SA) Pulse Rate 2020-12-08 10:27:00 79 /min [facility] ([facility]VID/SA) Respiratory Rate 2020-12-08 10:27:00 16 /min [facility] (LUF/DAVID/SA) O2% BldC Oximetry 2020-12-08 10:27:00 99 % [facility] (LUF/DAVID/SA) BP Systolic 2020-12-08 10:27:00 111 mm[Hg] [facility] ([facility]ID/SA) BP Diastolic 2020-12-08 10:27:00 57 mm[Hg] [facility] ([facility]ID/SA) Weight 2020-12-08 10:27:00 103 kg [facility] ([facility]ID/SA) Body Temperature 2020-11-25 00:27:00 97.9 [degF] [facility] (LUF/DAVID/SA) Pulse Rate 2020-11-25 00:27:00 82 /min [facility] ([facility]F/DAVID/SA) Respiratory Rate 2020-11-25 00:27:00 17 /min [facility] (LUF/DAVID/SA) O2% BldC Oximetry 2020-11-25 00:27:00 98 % [facility] (LUF/DAVID/SA) BP Systolic 2020-11-25 00:27:00 109 mm[Hg] [facility] ([facility]) BP Diastolic 2020-11-25 00:27:00 62 mm[Hg] [facility] ([facility]/SA) Heart Rate 2020-11-21 09:30:00 75 /min [facility] ([facility]ID/SA) Respiratory Rate 2020-11-21 09:30:00 14 /min [facility] (F/DAVID/SA) BP Systolic 2020-11-21 09:30:00 120 mm[Hg] [facility] ([facility]ID/SA) BP Diastolic 2020-11-21 09:30:00 76 mm[Hg] [facility] (F/DAVID/SA) Body Temperature 2020-11-21 07:15:00 98.1 [degF] [facility] (F/DAVID/SA) Pulse Rate 2020-11-21 07:15:00 103 /min [facility] (F/DAVID/SA) O2% BldC Oximetry 2020-11-21 07:15:00 100 % [facility] (F/DAVID/SA) Height 2020-11-21 07:15:00 64 [in_i] [facility] ([facility]VID/SA) Weight 2020-11-21 07:15:00 103.1 kg [facility] (F/DAVID/SA) BMI (Body Mass 2020-11-21 07:15:00 39.2 kg/m2 [facility] (F/DAVID/SA) Heart Rate 2020-11-14 13:30:00 69 /min [facility] ([facility]ID/SA) Pulse Rate 2020-11-14 13:30:00 70 /min [facility] (F/DAVID/SA) Respiratory Rate 2020-11-14 13:30:00 10 /min [facility] (F/DAVID/SA) O2% BldC Oximetry 2020-11-14 13:30:00 96 % [facility] (LUF/DAVID/SA) BP Systolic 2020-11-14 13:30:00 103 mm[Hg] [facility] ([facility]/SA) BP Diastolic 2020-11-14 13:30:00 77 mm[Hg] [facility] ([facility]/SA) Body Temperature 2020-11-14 09:47:00 97.4 [degF] [facility] (F/DAVID/SA) Weight 2020-11-14 09:47:00 103 kg [facility] (F/DAVID/SA) Body Temperature 2020-11-08 08:32:00 98.1 [degF] [facility] (F/DAVID/SA) Pulse Rate 2020-11-08 08:32:00 82 /min [facility] (F/DAVID/SA) Respiratory Rate 2020-11-08 08:32:00 20 /min [facility] (F/DAVID/SA) O2% BldC Oximetry 2020-11-08 08:32:00 100 % [facility] (F/DAVID/SA) BP Systolic 2020-11-08 08:32:00 129 mm[Hg] [facility] (F/[facility]VID/SA) BP Diastolic 2020-11-08 08:32:00 72 mm[Hg] [facility] ([facility]ID/SA) Height 2020-11-08 08:32:00 64 [in_i] [facility] ([facility]ID/SA) Weight 2020-11-08 08:32:00 103.1 kg [facility] (F/DAVID/SA) BMI (Body Mass 2020-11-08 08:32:00 39.2 kg/m2 [facility] (LUF/DAVID/SA) Body Temperature 2020-11-01 00:58:00 98.7 [degF] [facility] (LUF/DAVID/SA) Pulse Rate 2020-11-01 00:58:00 104 /min [facility] ([facility]F/[facility]ID/SA) Respiratory Rate 2020-11-01 00:58:00 20 /min [facility] (LUF/DAVID/SA) O2% BldC Oximetry 2020-11-01 00:58:00 99 % [facility] (LUF/DAVID/SA) BP Systolic 2020-11-01 00:58:00 133 mm[Hg] [facility] ([facility]ID/SA) BP Diastolic 2020-11-01 00:58:00 101 mm[Hg] [facility] ([facility]) Height 2020-11-01 00:53:00 65 [in_i] [facility] (F/[facility]ID/SA) Weight 2020-11-01 00:53:00 103 kg [facility] (F/DAVID/SA) BMI (Body Mass 2020-11-01 00:53:00 37.8 kg/m2 [facility] (LUF/DAVID/SA) Body Temperature 2020-10-04 23:51:00 98 [degF] [facility] (F/DAVID/SA) Pulse Rate 2020-10-04 23:51:00 96 /min [facility] ([facility]ID/SA) Respiratory Rate 2020-10-04 23:51:00 20 /min [facility] (F/DAVID/SA) O2% BldC Oximetry 2020-10-04 23:51:00 98 % [facility] (LUF/DAVID/SA) BP Systolic 2020-10-04 23:51:00 125 mm[Hg] [facility] ([facility]/SA) BP Diastolic 2020-10-04 23:51:00 73 mm[Hg] [facility] (F/[facility]VID/SA) Height 2020-10-04 23:47:00 65 [in_i] [facility] ([facility]/SA) Weight 2020-10-04 23:47:00 102.6 kg [facility] ([facility]ID/SA) BMI (Body Mass 2020-10-04 23:47:00 37.6 kg/m2 [facility]) [facility] (LUF/DAVID/SA) Body Temperature 2020-09-18 01:44:00 98.3 [degF] [facility] (LUF/DAVID/SA) Pulse Rate 2020-09-18 01:44:00 116 /min [facility] ([facility]ID/SA) Respiratory Rate 2020-09-18 01:44:00 20 /min [facility] (LUF/DAVID/SA) O2% BldC Oximetry 2020-09-18 01:44:00 99 % [facility] (LUF/DAVID/SA) BP Systolic 2020-09-18 01:44:00 127 mm[Hg] [facility] ([facility]/SA) BP Diastolic 2020-09-18 01:44:00 83 mm[Hg] [facility] (F/[facility]ID/SA) Height 2020-09-18 01:40:00 64 [in_i] [facility] ([facility]ID/SA) Weight 2020-09-18 01:40:00 102.8 kg [facility] ([facility]/SA) BMI (Body Mass 2020-09-18 01:40:00 39.1 kg/m2 [facility]) [facility] (LUF/DAVID/SA) Pulse Rate 2020-09-12 02:16:00 88 /min [facility] ([facility]ID/SA) O2% BldC Oximetry 2020-09-12 02:16:00 98 % [facility] (LUF/DAVID/SA) BP Systolic 2020-09-12 02:16:00 113 mm[Hg] [facility] ([facility]/SA) BP Diastolic 2020-09-12 02:16:00 64 mm[Hg] [facility] ([facility]/SA) Body Temperature 2020-09-12 00:56:00 97.9 [degF] [facility] (F/DAVID/SA) Respiratory Rate 2020-09-12 00:56:00 18 /min [facility] (LUF/DAVID/SA) Height 2020-09-12 00:50:00 65 [in_i] [facility] ([facility]/SA) Weight 2020-09-12 00:50:00 104.5 kg [facility] ([facility]ID/SA) BMI (Body Mass 2020-09-12 00:50:00 38.3 kg/m2 [facility]) [facility] (LUF/DAVID/SA) Pulse Rate 2020-08-22 03:16:00 100 /min [facility] ([facility]ID/SA) O2% BldC Oximetry 2020-08-22 03:16:00 95 % [facility] (LUF/DAVID/SA) BP Systolic 2020-08-22 03:16:00 129 mm[Hg] [facility] ([facility]/SA) BP Diastolic 2020-08-22 03:16:00 88 mm[Hg] [facility] ([facility]/SA) Body Temperature 2020-08-22 01:35:00 98.4 [degF] [facility] (LUF/DAVID/SA) Respiratory Rate 2020-08-22 01:35:00 20 /min [facility] (LUF/DA[facility]ID/SA) Height 2020-08-22 01:35:00 64 [in_i] [facility] ([facility]/SA) Weight 2020-08-22 01:35:00 102 kg [facility] ([facility]/SA) BMI (Body Mass 2020-08-22 01:35:00 38.8 kg/m2 [facility]) [facility] (LUF/DAVID/SA) Pulse Rate 2020-08-06 03:31:00 83 /min [facility] ([facility]/SA) O2% BldC Oximetry 2020-08-06 03:31:00 96 % [facility] (LUF/[facility]VID/SA) BP Systolic 2020-08-06 03:31:00 127 mm[Hg] [facility] ([facility]/SA) BP Diastolic 2020-08-06 03:31:00 82 mm[Hg] [facility] ([facility]/SA) Body Temperature 2020-08-06 01:45:00 98 [degF] [facility] (LUF/DAVID/SA) Respiratory Rate 2020-08-06 01:45:00 20 /min [facility] (LUF/[facility]ID/SA) Height 2020-08-06 01:39:00 66 [in_i] [facility] ([facility]) Weight 2020-08-06 01:39:00 104.2 kg [facility] ([facility]/SA) BMI (Body Mass 2020-08-06 01:39:00 37.3 kg/m2 [facility] (LUF/[facility]VID/SA) Pulse Rate 2020-07-19 11:16:00 67 /min [facility] (F/[facility]VID/SA) O2% BldC Oximetry 2020-07-19 11:16:00 94 % [facility] (LUF/[facility]ID/SA) BP Systolic 2020-07-19 11:16:00 101 mm[Hg] [facility] ([facility]) BP Diastolic 2020-07-19 11:16:00 63 mm[Hg] [facility] ([facility]/SA) Body Temperature 2020-07-19 07:50:00 98 [degF] [facility] (LUF/[facility]VID/SA) Respiratory Rate 2020-07-19 07:50:00 18 /min [facility] (F/DAVID/SA) Weight 2020-07-19 07:50:00 100 kg [facility] ([facility]) Heart Rate 2020-07-05 04:46:00 80 /min [facility] (F/[facility]ID/SA) Respiratory Rate 2020-07-05 04:46:00 15 /min [facility] (LUF/[facility]/SA) BP Systolic 2020-07-05 04:46:00 134 mm[Hg] [facility] ([facility]) BP Diastolic 2020-07-05 04:46:00 60 mm[Hg] [facility] ([facility]) Body Temperature 2020-07-05 02:57:00 98 [degF] [facility] (LUF/[facility]ID/SA) Pulse Rate 2020-07-05 02:57:00 82 /min [facility] ([facility]) O2% BldC Oximetry 2020-07-05 02:57:00 99 % [facility] (LUF/[facility]ID/SA) Height 2020-07-05 02:50:00 65 [in_i] [facility] ([facility]) Weight 2020-07-05 02:50:00 102.1 kg [facility] ([facility]/SA) BMI (Body Mass 2020-07-05 02:50:00 37.5 kg/m2 [facility] Index) [facility] (LUF/DAVID/SA) Body Temperature 2020-06-07 13:38:00 98.5 [degF] [facility] (LUF/[facility]ID/SA) Pulse Rate 2020-06-07 13:38:00 95 /min [facility] ([facility]) Respiratory Rate 2020-06-07 13:38:00 20 /min [facility] (LUF/[facility]ID/SA) O2% BldC Oximetry 2020-06-07 13:38:00 97 % [facility] (LUF/DAVID/SA) BP Systolic 2020-06-07 13:38:00 129 mm[Hg] [facility] ([facility]) BP Diastolic 2020-06-07 13:38:00 73 mm[Hg] [facility] ([facility]) Height 2020-06-07 13:38:00 64 [in_i] [facility] ([facility]) Weight 2020-06-07 13:38:00 99.79 kg [facility] ([facility]/SA) BMI (Body Mass 2020-06-07 13:38:00 38 kg/m2 [facility] Index) [facility] (LUF/DAVID/SA) Body Temperature 2020-05-31 09:45:00 99.6 [degF] [facility] (LUF/[facility]ID/SA) Pulse Rate 2020-05-31 09:45:00 86 /min [facility] ([facility]) Respiratory Rate 2020-05-31 09:45:00 18 /min [facility] (LUF/[facility]ID/SA) O2% BldC Oximetry 2020-05-31 09:45:00 98 % [facility] (LUF/[facility]ID/SA) BP Systolic 2020-05-31 09:45:00 118 mm[Hg] [facility] ([facility]) BP Diastolic 2020-05-31 09:45:00 78 mm[Hg] [facility] ([facility]) Height 2020-05-31 09:45:00 64 [in_i] [facility] ([facility]) Weight 2020-05-31 09:45:00 99.79 kg [facility] ([facility]/SA) BMI (Body Mass 2020-05-31 09:45:00 38 kg/m2 [facility] (LUF/[facility]ID/SA) Heart Rate 2020-04-25 20:01:00 69 /min [facility] ([facility]) Pulse Rate 2020-04-25 20:01:00 71 /min [facility] ([facility]) Respiratory Rate 2020-04-25 20:01:00 18 /min [facility] (LUF/[facility]ID/SA) O2% BldC Oximetry 2020-04-25 20:01:00 100 % [facility] (LUF/[facility]VID/SA) BP Systolic 2020-04-25 20:01:00 126 mm[Hg] [facility] ([facility]) BP Diastolic 2020-04-25 20:01:00 86 mm[Hg] [facility] ([facility]) Body Temperature 2020-04-25 16:50:00 98.4 [degF] [facility] (LUF/[facility]/SA) Height 2020-04-25 16:50:00 64 [in_i] [facility] ([facility]) Weight 2020-04-25 16:50:00 220 [lb_av] [facility] ([facility]) BMI (Body Mass 2020-04-25 16:50:00 38 kg/m2 [facility] Index) [facility] (LUF/DAVID/SA) Heart Rate 2020-03-20 18:18:00 112 /min [facility] ([facility]) Pulse Rate 2020-03-20 18:16:00 93 /min [facility] ([facility]) O2% BldC Oximetry 2020-03-20 18:16:00 92 % [facility] (LUF/[facility]ID/SA) BP Systolic 2020-03-20 18:16:00 127 mm[Hg] [facility] ([facility]) BP Diastolic 2020-03-20 18:16:00 85 mm[Hg] [facility] ([facility]) Body Temperature 2020-03-20 17:17:00 99.2 [degF] [facility] (LUF/[facility]ID/SA) Respiratory Rate 2020-03-20 17:17:00 19 /min [facility] (LU[facility]) Height 2020-03-20 17:17:00 64 [in_i] [facility] ([facility]) Weight 2020-03-20 17:17:00 106.9 kg [facility] ([facility]/SA) BMI (Body Mass 2020-03-20 17:17:00 40.7 kg/m2 [facility] Index) [facility] (LUF/DAVID/SA) Respiratory Rate 2020-03-17 10:33:00 16 /min [facility] ([facility]F/[facility]ID/SA) Body Temperature 2020-03-17 07:54:00 97.9 [degF] [facility] (LUF/[facility]ID/SA) Pulse Rate 2020-03-17 07:54:00 83 /min [facility] ([facility]) O2% BldC Oximetry 2020-03-17 07:54:00 96 % [facility] (LUF/DAVID/SA) BP Systolic 2020-03-17 07:54:00 107 mm[Hg] [facility] (LUF/DAVID/SA) BP Diastolic 2020-03-17 07:54:00 75 mm[Hg] [facility] ([facility]) Weight 2020-03-17 00:09:00 105.6 kg [facility] ([facility]) Heart Rate 2020-03-13 15:46:00 81 /min [facility] ([facility]) Height 2020-03-13 15:31:00 64 [in_i] [facility] ([facility]) Body Temperature 2020-03-02 15:20:00 98.6 [degF] [facility] (LUF/[facility]ID/SA) Pulse Rate 2020-03-02 15:20:00 86 /min [facility] ([facility]) Respiratory Rate 2020-03-02 15:20:00 18 /min [facility] ([facility]/SA) O2% BldC Oximetry 2020-03-02 15:20:00 99 % [facility] ([facility]ID/SA) BP Systolic 2020-03-02 15:20:00 131 mm[Hg] [facility] ([facility]) BP Diastolic 2020-03-02 15:20:00 85 mm[Hg] [facility] ([facility]) Height 2020-03-01 10:54:00 64 [in_i] [facility] ([facility]) Weight 2020-03-01 10:54:00 102 kg [facility] ([facility]) BMI (Body Mass 2020-03-01 10:54:00 38.8 kg/m2 [facility] (LUF/[facility]ID/SA) Respiratory Rate 2020-02-27 07:47:00 16 /min [facility] (LUF/[facility]ID/SA) Body Temperature 2020-02-27 07:32:00 98.2 [degF] [facility] (LUF/[facility]ID/SA) Pulse Rate 2020-02-27 07:32:00 94 /min [facility] ([facility]) O2% BldC Oximetry 2020-02-27 07:32:00 95 % [facility] (LU[facility]ID/SA) BP Systolic 2020-02-27 07:32:00 111 mm[Hg] [facility] ([facility]) BP Diastolic 2020-02-27 07:32:00 56 mm[Hg] [facility] ([facility]) Weight 2020-02-26 02:09:00 99.6 kg [facility] ([facility]) Height 2020-02-25 10:03:00 64 [in_i] [facility] ([facility]) Body Temperature 2020-02-25 00:52:00 97.9 [degF] [facility] ([facility]/SA) Pulse Rate 2020-02-25 00:52:00 118 /min [facility] ([facility]) Respiratory Rate 2020-02-25 00:52:00 18 /min [facility] ([facility]F/[facility]ID/SA) O2% BldC Oximetry 2020-02-25 00:52:00 97 % [facility] ([facility]) BP Systolic 2020-02-25 00:52:00 133 mm[Hg] [facility] ([facility]) BP Diastolic 2020-02-25 00:52:00 67 mm[Hg] [facility] ([facility]) Height 2020-02-25 00:47:00 64 [in_i] [facility] ([facility]) Weight 2020-02-25 00:47:00 103.4 kg [facility] ([facility]ID/SA) BMI (Body Mass 2020-02-25 00:47:00 39.3 kg/m2 [facility] ([facility]ID/SA) Body Temperature 2020-01-25 11:32:00 98.4 [degF] [facility] (LUF/[facility]ID/SA) Pulse Rate 2020-01-25 11:32:00 81 /min [facility] ([facility]) Respiratory Rate 2020-01-25 11:32:00 14 /min [facility] ([facility]/SA) O2% BldC Oximetry 2020-01-25 11:32:00 98 % [facility] (LU[facility]ID/SA) BP Systolic 2020-01-25 11:32:00 139 mm[Hg] [facility] ([facility]ID/SA) BP Diastolic 2020-01-25 11:32:00 89 mm[Hg] [facility] ([facility]) Height 2020-01-25 11:32:00 64 [in_i] [facility] ([facility]) Weight 2020-01-25 11:32:00 100.5 kg [facility] ([facility]/SA) BMI (Body Mass 2020-01-25 11:32:00 38.2 kg/m2 [facility] (LUF/DAVID/SA) Heart Rate 2019-11-24 04:16:00 84 /min [facility] ([facility]ID/SA) Pulse Rate 2019-11-24 04:16:00 90 /min [facility] ([facility]) Respiratory Rate 2019-11-24 04:16:00 26 /min [facility] (LU[facility]ID/SA) O2% BldC Oximetry 2019-11-24 04:16:00 98 % [facility] ([facility]ID/SA) BP Systolic 2019-11-24 04:16:00 106 mm[Hg] [facility] ([facility]) BP Diastolic 2019-11-24 04:16:00 69 mm[Hg] [facility] ([facility]) Body Temperature 2019-11-24 00:54:00 98.4 [degF] [facility] ([facility]ID/SA) Height 2019-11-24 00:49:00 65 [in_i] [facility] ([facility]) Weight 2019-11-24 00:49:00 103 kg [facility] ([facility]ID/SA) BMI (Body Mass 2019-11-24 00:49:00 37.8 kg/m2 [facility]) [facility] (LUF/DAVID/SA) Heart Rate 2019-10-07 22:54:00 83 /min [facility] ([facility]ID/SA) Respiratory Rate 2019-10-07 22:54:00 14 /min [facility] ([facility]) Pulse Rate 2019-10-07 22:31:00 89 /min [facility] ([facility]) O2% BldC Oximetry 2019-10-07 22:31:00 97 % [facility] ([facility]) BP Systolic 2019-10-07 21:16:00 127 mm[Hg] [facility] ([facility]) BP Diastolic 2019-10-07 21:16:00 85 mm[Hg] [facility] ([facility]) Height 2019-10-07 20:41:00 64 [in_i] [facility] ([facility]) Weight 2019-10-07 20:41:00 100.2 kg [facility] ([facility]) BMI (Body Mass 2019-10-07 20:41:00 38.1 kg/m2 [facility] ([facility]) Pulse Rate 2019-09-20 04:16:00 96 /min [facility] ([facility]) Respiratory Rate 2019-09-20 04:16:00 9 /min [facility] ([facility]) O2% BldC Oximetry 2019-09-20 04:16:00 96 % [facility] ([facility]) BP Systolic 2019-09-20 04:16:00 97 mm[Hg] [facility] ([facility]) BP Diastolic 2019-09-20 04:16:00 76 mm[Hg] [facility] ([facility]) Body Temperature 2019-09-20 00:44:00 98 [degF] [facility] ([facility]) Height 2019-09-20 00:39:00 65 [in_i] [facility] ([facility]) Weight 2019-09-20 00:39:00 101.9 kg [facility] ([facility]) BMI (Body Mass 2019-09-20 00:39:00 37.4 kg/m2 [facility] Index) [facility] ([facility]ID/[facility]) Pulse Rate 2019-08-17 04:31:00 81 /min [facility] ([facility]) Respiratory Rate 2019-08-17 04:31:00 13 /min [facility] ([facility]) O2% BldC Oximetry 2019-08-17 04:31:00 97 % [facility] ([facility]) BP Systolic 2019-08-17 04:31:00 136 mm[Hg] [facility] ([facility]) BP Diastolic 2019-08-17 04:31:00 75 mm[Hg] [facility] ([facility]) Body Temperature 2019-08-17 02:23:00 97.6 [degF] [facility] ([facility]) Height 2019-08-17 02:19:00 64 [in_i] [facility] ([facility]) Weight 2019-08-17 02:19:00 100.6 kg [facility] ([facility]) BMI (Body Mass 2019-08-17 02:19:00 38.3 kg/m2 [facility] Index) [facility] ([facility]ID/[facility]) Pulse Rate 2018-12-07 02:33:00 79 /min [facility] ([facility]) Respiratory Rate 2018-12-07 02:33:00 15 /min [facility] ([facility]) O2% BldC Oximetry 2018-12-07 02:33:00 96 % [facility] ([facility]) BP Systolic 2018-12-07 02:33:00 120 mm[Hg] [facility] ([facility]) BP Diastolic 2018-12-07 02:33:00 76 mm[Hg] [facility] ([facility]) Body Temperature 2018-12-07 01:10:00 98.2 F [facility] ([facility]ID/[facility]) Height 2018-12-07 01:10:00 64 in [facility] (LUF/DAVID/SA) Weight Measured 2018-12-07 01:10:00 218.25 lbs [facility] (LUF/DAVID/SA) BMI (Body Mass 2018-12-07 01:10:00 37.7 kg/m2 [facility]) [facility] (LUF/DAVID/SA) Pulse Rate 2018-09-30 19:40:00 70 /min [facility] (LUF/DAVID/SA) Respiratory Rate 2018-09-30 19:40:00 21 /min [facility] (LUF/DAVID/SA) O2% BldC Oximetry 2018-09-30 19:40:00 100 % [facility] (LUF/DAVID/SA) BP Systolic 2018-09-30 19:40:00 124 mm[Hg] [facility] (LUF/DAVID/SA) BP Diastolic 2018-09-30 19:40:00 88 mm[Hg] [facility] (LUF/DAVID/SA) Body Temperature 2018-09-30 19:23:00 99.3 F [facility] (LUF/DAVID/SA) Height 2018-09-30 19:23:00 66 in [facility] (LUF/DAVID/SA) Weight Measured 2018-09-30 19:23:00 212.52 lbs [facility] S [facility] (LUF/DAVID/SA) BMI (Body Mass 2018-09-30 19:23:00 34.5 kg/m2 [facility]) [facility] (LUF/DAVID/SA) Body Temperature 2018-09-01 13:59:00 98 F [facility] (LUF/DAVID/SA) Pulse Rate 2018-09-01 12:15:00 74 /min [facility] (LUF/DAVID/SA) Respiratory Rate 2018-09-01 12:15:00 16 /min [facility] (F/DAVID/SA) O2% BldC Oximetry 2018-09-01 12:15:00 98 % [facility] (LUF/DAVID/SA) BP Systolic 2018-09-01 12:15:00 131 mm[Hg] [facility] (LUF/DAVID/SA) BP Diastolic 2018-09-01 12:15:00 78 mm[Hg] [facility] (LUF/DAVID/SA) Height 2018-09-01 09:16:00 64 in [facility] (LUF/DAVID/SA) Weight Measured 2018-09-01 09:16:00 214.24 lbs [facility] S [facility] (LUF/DAVID/SA) BMI (Body Mass 2018-09-01 09:16:00 37 kg/m2 [facility]) [facility] (LUF/DAVID/SA) Body Temperature 2018-05-13 10:58:00 99 F [facility] (LUF/DAVID/SA) Pulse Rate 2018-05-13 10:58:00 97 /min [facility] (F/DAVID/SA) Respiratory Rate 2018-05-13 10:58:00 18 /min [facility] (F/DAVID/SA) O2% BldC Oximetry 2018-05-13 10:58:00 98 % [facility] (LUF/DAVID/SA) BP Systolic 2018-05-13 10:58:00 131 mm[Hg] [facility] (LUF/DAVID/SA) BP Diastolic 2018-05-13 10:58:00 88 mm[Hg] [facility] (LUF/DAVID/SA) Height 2018-05-13 10:58:00 64 in [facility] hospital (F/DAVID/SA) Weight Measured 2018-05-13 10:58:00 207.23 lbs [facility] S [facility] (LUF/DAVID/SA) BMI (Body Mass 2018-05-13 10:58:[address] [facility] [address] [facility]) [facility] (LUF/DAVID/SA) Body Temperature 2017-12-24 08:04:00 98.7 F [facility] (LUF/DAVID/SA) Respiratory Rate 2017-12-24 08:04:00 18 /min [facility] (F/DAVID/SA) O2% BldC Oximetry 2017-12-24 08:04:00 98 % [facility] (LUF/DAVID/SA) BP Systolic 2017-12-24 08:04:00 126 mm[Hg] [facility] (F/DAVID/SA) BP Diastolic 2017-12-24 08:04:00 86 mm[Hg] [facility] (F/DAVID/SA) Weight Measured 2017-12-24 08:04:00 207.23 lbs [facility] (F/DAVID/SA) Body Temperature 2017-06-20 23:28:00 97.4 F [facility] (F/DAVID/SA) Respiratory Rate 2017-06-20 23:28:00 20 /min [facility] ([facility]/DAVID/) O2% BldC Oximetry 2017-06-20 23:28:00 99 % [facility] (F/DAVID/SA) BP Systolic 2017-06-20 23:28:00 107 mm[Hg] [facility] (F/DAVID/SA) BP Diastolic 2017-06-20 23:28:00 76 mm[Hg] [facility] (F/DAVID/SA) Height 2017-06-20 23:28:00 64 in Critical access hospital ([facility]/DAVID/SA) Weight Measured 2017-06-20 23:28:00 217.15 lbs [facility] (F/DAVID/SA) BMI (Body Mass 2017-06-20 23:28:00 37.5 [facility] (F/DAVID/SA) Procedures Procedure Date / Time Performing Clinician Source Performed CT ABDOMEN PELVIS WO 2022-05-07 15:06:09 Ridge Pagan [facility] BASIC METABOLIC PANEL (NA, 2022-05-07 14:20:00 Ridge Pagan U [facility] K, CL, CO2, GLUCOSE, BUN, Medica l Branch CREATININE, CA) CBC WITH DIFF 2022-05-07 14:20:00 Ridge Pagan [facility] URINALYSIS 2022-05-07 14:20:00 Ridge Pagan [facility] CONSENT/REFUSAL FOR 2022-05-07 13:49:51 Doctor Unassigned, [facility] DIAGNOSIS AND TREATMENT [place] [place] [facility] ABDOMEN PELVIS WO 2022-02-19 15:49:34 Trice Harris [facility] LIPASE 2022-02-19 14:26:00 Trice Harris [facility] COMP. METABOLIC PANEL 2022-02-19 14:26:00 Trice Harris [facility] ([id number]) [facility] CBC WITH DIFF 2022-02-19 14:26:00 Trice Harris [facility] URINALYSIS 2022-02-19 14:26:00 Trice Harris [facility] CONSENT/REFUSAL FOR 2022-02-19 14:11:01 Doctor Unassigned, [facility] DIAGNOSIS AND TREATMENT [place] [facility] POCT MOLECULAR FLU 2021-11-29 22:46:00 Mohan Ameena [facility] INS INFUS DEV LT BASILIC 2020-03-15 00:00:00 [facility] VN PERQ [facility] (LUF/DAVID/SA) ULTRASONOGRAPHY LT UP EXT 2020-03-15 00:00:[address] [facility] VNS GUID [facility] (LUF/DAVID/SA) ROBOTIC LAP LYSIS OF 2020-03-02 12:56:[address] [facility] ADHESIONS [facility] (LUF/DAVID/SA) LAPAROSCOPY ENTEROLYSIS 2020-03-02 00:00:[address] [facility] SEPARATE PROCEDU [facility] (LUF/DAVID/SA) COLONOSCOPY FLX DX W/COLLJ 2020-02-26 00:00:[address] [facility] SPEC WHEN PFR [facility] (LUF/DAVID/SA) ROBOTIC RIGHT OOPHORECTOMY 2019-03-21 17:09:[address] [facility] LUF (Right) [facility] (LUF/DAVID/SA) CYSTO RGP STENT PLACEMENT 2015-04-20 14:01:[address] [facility] LUF [facility] (LUF/DAVID/SA) CYSTO RGP STENT PLACEMENT 2015-04-20 14:01:[address] [facility] LUF [facility] (LUF/DAVID/SA) [facility]) Total thyroidectomy [facility] (LUF/DAVID/SA) [facility]) ABDOMINAL ADHESIONS [facility] REMOVED [facility] (F/DAVID/SA) Extracorporeal shockwave [facility] lithotripsy [facility] ([facility]SA) MULTIPLE CYSTECTOMYS DONE [facility] (F/DAVID/SA) MULTIPLE CYSTECTOMYS DONE [facility] (F/DAVID/SA) ABDOMINAL ADHESIONS [facility] (F/DAVID/SA) Appendectomy [facility] ([facility]/SA) Plan of Care Planned Activity Planned Date [...] Nba, STLMLC STLC Common 08:27:02 Josué 0127 [facility] 2021-07-26 Outpatient Nba, STLMLC STLMLC Common 14:20:31 Josué 1203 [facility] 2021-07-26 Outpatient Nba, STLMLC STLMLC Common 14:05:52 Josué 1027 [facility] 2021-07-26 Outpatient Nba, STLMLC STLMLC Common 12:01:28 Josué 1103 [facility] 2021-07-26 Outpatient Nba, STLMLC STLMLC Common 11:56:42 Josué 1019 [facility] 2021-07-26 Outpatient Nba, STLMLC STLMLC Common 11:49:38 Josué 0928 [facility] 2021-07-26 Outpatient Nba, STLMLC STLMLC Common 11:48:02 Josué 0922 [facility] 2021-07-26 Outpatient Nba, STLMLC STLMLC Common 11:47:47 Josué 0921 [facility] 2021-07-26 Outpatient JEANA Arango [facility] Common 11:42:15 Josué 0901 [facility] 2021-07-26 Outpatient JEANA Arango [facility] Common 11:32:09 Josué 0720 [facility] 2022-05-13 2022-05-13 Outpatient IRVINIngrid_Vita AO AO 643 [id number] Adelia 00:00:00 00:00:00 Jhon [id number] [facility] 2022-05-07 2022-05-07 Emergency X EJ, [facility] ERT [id number] Univers 07:57:00 09:45:00 RIDGE [facility] 2022-05-07 2022-05-07 Emergency [email or web address] [id number] Univers 07:57:00 09:45:00 Ridge GAONA 350.1.13.10 i ty of [place] 4.2.7.2.686 [facility] [id number] [address] 2022-05-07 2022-05-07 Outpatient SANTINODevanIngridDevanVita AO AO [id number] Adelia 00:00:00 00:00:00 Jhon [id number] Orthop e [facility]in e 2022-04-23 2022-04-23 Emergency EM PACO Quintero [id number] [facility] 09:39:00 10:55:00 Truman [facility] [place] [facility] 2022-02-19 2022-02-19 Emergency X HARRIS, [facility] ERT [id number] Univers 09:15:00 11:05:00 TRICE melo [facility] 2022-02-19 2022-02-19 [facility] 1.2.840.114 [id number] Univers 09:15:00 11:05:00 Trice GAONA 350.1.13.10 i ty of [place] 4.2.7.2.686 [facility] [phone] [address] 2021-11-29 2021-11-29 [facility] [place], [facility] 1.2.840.114 [id number] Univers 17:40:00 18:00:00 Care [facility] 350.1.13.10 it y of [facility] 4.2.7.2.686 Jacqeus as SUE?BLEA [phone] Mi jada [address] MEDICAL OFFICE BUILDING 2021-11-29 2021-11-29 Outpatient [facility] [id number] Univers 17:40:00 17:40:00 AMEENA ity [facility] 2021-11-29 2021-11-29 Outpatient Irwin [facility] [id number] Univers 17:40:00 17:40:00 AMEENA [facility] 2021-10-26 2021-10-26 Office GEOVANI Blas, 1.2.840.1 [id number] Univers 09:45:00 10:47:06 Visit Praveen 26861.1.1 ity of 3.412.2.7 [place] .3.764205 MD Carter8 [facility] 2021-10-26 2021-10-26 Travel 1.2.840.1 [id number] [id number] Univers 00:00:00 00:00:00 62872.1.1 350.1.13.41 ity of 3.412.2.7 2.[place].3.698 [place] .3.069498 084.8 .8 [facility] 2021-10-15 2021-10-15 ROSEMARIE 1 SHAM, [facility] [id number] 22:25:00 22:45:00 CONSCIOUS EKTA DAVIS Luke s [facility], Memor ia [address] stefanie MEHTA (LUF/LI AVE, V/SA) JULIÁN ROSA [address] 2021-10-15 2021-10-15 Inpatient [facility] 79e1 4a53-b [facility] 00:00:00 00:00:00 DAVIS [id number] [facility], [id number] Memor ia [address] 097a stefanie MEHTA (LUF/LI AVE, V/SA) JULIÁN ROSA [address] 2021-10-15 2021-10-15 Inpatient [email or web address]] [id number] 00:00:00 00:00:00 DAVIS [id number] [facility] [employer] [facility], [id number] [facility] [address] [id number] stefanie MEHTA (LUF/YUKI PIZANOE, V/[place]) [place] [address] 2021-08-29 2021-08-29 Outpatient Irwin CARRANZA [facility] [id number] Univers 16:20:00 16:20:00 PATRICK [facility] 2021-08-07 2021-08-07 Emergency EM Tyree, [facility] AMPARO [id number] [facility] 09:36:00 12:55:00 Olga 19 [facility] 2021-08-01 2021-08-02 Emergency [email or web address] [id number] Univers 22:00:00 01:17:00 Leanne GAONA 350.1.13.10 i ty [facility] 4.2.7.2.686 [facility] [id number] [facility] 084 Branch 2021-08-01 2021-08-02 Emergency [email or web address] ERT [id number] Univers 22:00:00 01:17:00 LEANNE [facility] 2021-06-28 2021-06-28 Outpatient R SIRISHA [facility] [id number] Univers 17:30:00 17:30:00 SHARA [facility] 2021-06-22 2021-06-22 Letter REHAN Chaves 1.2.840.114 [id number] Univers 00:00:00 00:00:00 (Out) Eve LEE 350.1.13.10 it y of [facility] 4.2.7.2.686 Jacques [id number] [facility] 019 Branch 2021-06-22 2021-06-22 Park [email or web address] 1.2.840.114 [id number] Univers 00:00:00 00:00:00 Patrick [facility] 350.1.13.10 it y of [place] 4.2.7.2.686 Jacques as SUE?BLEA [id number] [address] MEDICAL OFFICE BUILDING 2021-06-21 2021-06-21 Outpatient R RODRIGUEZRené [facility] [id number] Univers 11:00:00 12:14:12 RANJITHDEEPA ity of [facility] 2021-06-21 2021-06-21 Urgent RodriguezPatrick merritt [facility] 1.2.840.114 [id number] Univers 11:00:00 11:20:00 Care [facility] 350.1.13.10 ity of [place] 4.2.7.2.686 Jacques as SUE?BLEA [phone] [address] MEDICAL OFFICE BUILDING 2021-06-21 2021-06-21 Telephone Rodriguezrené [facility] 1.2.840.114 [id number] Univers 00:00:00 00:00:00 [facility] 350.1.13.10 it y of [place] 4.2.7.2.686 Jacques as SUE?BLEA [phone] [address] MEDICAL OFFICE [facility] 2021-06-21 2021-06-21 Letter Doctor REHAN 1.2.840.114 [id number] Univers 00:00:00 00:00:00 (Out) Unassigned, ROSA 350.1.13.10 ity of [place] [facility] 4.2.7.2.686 Jaqcues as [phone] [address] 2021-05-30 2021-05-30 (TEL) STLC STLMLC [id number] Co mmon 00:00:00 00:00:00 [facility] 2021-05-29 2021-05-29 (TEL) STLMLC STLMLC [id number] Co mmon 00:00:00 00:00:00 [facility] 2021-04-26 2021-04-26 (TEL) STLMLC STLMLC [id number] Co mmon 00:00:00 00:00:00 [facility] 2021-04-23 2021-04-23 UNSPECIFIE 1 LONI DYKES EMD [id number] [facility] 00:46:00 02:08:00 D SETH Dhaliwal ABDOMINAL Memori a PAIN l (LUF/LI V/SA) 2021-04-23 2021-04-23 Inpatient [email or web address] fb11 [id number] [facility] 00:00:00 00:00:00 DAVIS [id number] [facility], [id number] Memor ia [address] [id number] l [place] (LUF/LI AVE, V/SA) [place] [address] 2021-04-23 2021-04-23 Inpatient [email or web address]] 6aab [id number] [facility] 00:00:00 00:00:00 DAVIS [id number] [facility], [id number] Memor ia [address] [id number] l [place] (LUF/LI AVE, V/[place]) [place] [address] 2021-03-24 2021-03-24 ANXIETY 1 COTTON, [facility] [[email or web address]] [id number] [facility] 10:25:00 12:27:00 [facility]NS[facility]IFIE [place], Memor ia D [address] [place] (LUF/LI AVE, V/[place]) [place] [address] 2021-03-24 2021-03-24 Inpatient [email or web address] f871 [id number]-c [facility] 00:00:00 00:00:00 DAVIS [id number] [facility], [id number] Memor ia [address] [id number] l [place] (LUF/LI AVE, V/SA) [place] [address] 2021-03-24 2021-03-24 Inpatient [email or web address]] [id number] ff19-c [facility] 00:00:00 00:00:00 DAVIS [id number] [facility], [id number] Memor ia [address] [id number] l [place] (LUF/LI AVE, V/SA) [place] [address] 2021-03-23 2021-03-23 Orders Adriana, 1.2.840.1 [id number] Univers 00:00:00 00:00:00 Only Viktoriya Merritt 01106.1.1 ity of 3.412.2.7 [place] .3.590249 MD Carter8 [facility] 2021-03-10 2021-03-10 UTI SITE E SANACIUK, [email or web address]] [id number] 10:29:00 13:50:00 NOT JUAN [facility] Memori a [address] [place] (LUF/LI AVE, V/SA) [place] [address] 2021-03-10 2021-03-10 Inpatient [email or web address]] [id number] 6598-b [facility] 00:00:00 00:00:00 DAVIS [id number] [facility], [id number] Memor ia [address] [id number] l [place] (LUF/LI AVE, V/SA) [place] [address] 2021-03-10 2021-03-10 Inpatient [email or web address]] [id number] 3339-c [facility] 00:00:00 00:00:00 DAVIS [id number] [facility], [id number] Memor ia [address] [id number] l [place] (LUF/LI AVE, V/SA) [place] [address] 2021-02-23 2021-02-23 RIGHT E [facility] [[email or web address]] [id number] 08:15:00 12:44:00 [facility], Memoria PAIN [address] [place] (LUF/LI AVE, V/SA) [place] [address] 2021-02-23 2021-02-23 Inpatient [email or web address]] [id number] 00:00:00 00:00:00 DAVIS [id number] [facility], [id number] Memor ia [address] [id number] l [place] (LUF/LI AVE, V/SA) [place] [address] 2021-02-23 2021-02-23 Inpatient [email or web address]] [id number] 00:00:00 00:00:00 DAVIS [id number] [facility], [id number] Memor ia [address] 1655de l [place] (LUF/LI AVE, V/SA) [place] [address] 2021-01-10 2021-01-10 CALCCINDY Jake JANIA, [facility] [place] [address] [id number] [facility] St 00:21:00 03:06:00 OF KIDNEY SETH [facility], Memoria [address] [place] (LUF/LI AVE, V/SA) [place] [address] 2021-01-10 2021-01-[address] In[address] [facility] 2205-c [facility] St 00:00:00 00:00:00 DAVIS [id number] [facility], [id number] Memor ia [address] [id number] l [place] (LUF/LI AVE, V/SA) [place] [address] 2021-01-10 2021-01-10 Inpatient [facility] OF [facility] fe83-e [facility] 00:00:00 00:00:00 DAVIS [id number] [facility], [id number] Memor ia [address] [id number] l [place] (LUF/LI AVE, V/SA) [place] [address] 2020-12-27 2020-12-27 Emergency [facility] Zarina [id number] [address] [place] [address] 00:00:00 00:00:[address] 2020-12-22 2020-12-22 Outpatient 3 LONI MURILLO [facility] [id number] [facility] [address] 09:00:00 09:00:00 SKYE Dhaliwal Memoria l (LUF/LI V/SA) 2020-12-13 2020-12-13 Emergency EM Ana, FRANKIEKW [facility] [id number] [facility] 01:53:00 06:36:00 Tangela Stern [facility] 2020-12-12 2020-12-12 RIGHT Jake COTTON, [email or web address] [id number] 12:33:00 14:00:00 [facility], Memoria PAIN [address] [place] (LUF/LI AVE, V/SA) [place] [address] 2020-12-12 2020-12-12 Inpatient [facility] OF [email or web address]] [id number] cb47-b [facility] St 00:00:00 00:00:00 DAVIS [id number] [facility], [id number] Memor ia [address] [id number] l [place] (LUF/LI AVE, V/SA) [place] [address] 2020-12-12 2020-12-12 Inpatient [email or web address]] 43ed [id number] 00:00:00 00:00:00 DAVIS [id number] [facility], [id number] Memor ia [address] 70ade3 l [place] (LUF/LI AVE, V/SA) [place] [address] 2020-12-08 2020-12-08 UNSPECIFIE Jake SOTOMAYOR, [email or web address]] [id number] [facility] St 09:44:00 12:26:00 D WYATT [facility] ABDOMINAL [place], [facility] [address] [place] (LUF/LI AVE, V/SA) [place] [address] 2020-12-08 2020-12-08 Inpatient [email or web address]] [id number] a794-a [facility] 00:00:00 00:00:00 DAVIS [id number] [facility], [id number] Memor ia [address] [id number] l [place] (LUF/LI AVE, V/SA) [place] [address] 2020-11-25 2020-11-25 UNSPECIFIE [email or web address]] [id number] 00:13:00 00:30:00 D [facility] ABDOMINAL [place], [facility] PAIN [address] [place] (LUF/LI AVE, V/SA) [place] [address] 2020-11-25 2020-11-25 Inpatient [email or web address] 3041 [id number] 00:00:00 00:00:00 DAVIS [id number] [facility], [id number] Memor ia [address] [id number] l [place] (LUF/LI AVE, V/[place]) [place] [address] 2020-11-25 2020-11-25 Inpatient [facility] [[email or web address]] [id number] [facility] St 00:00:00 00:00:00 DAVIS [id number] [facility], [id number] Memor ia [address] [id number] l [place] ([address], V/SA) [place] [address] 2020-11-21 2020-11-21 ENDOMETRIO 1 [facility] [[email or web address]] [id number] [facility] 07:14:00 09:53:00 [facility] [place], Memor ia D [address] ([address], V/SA) [place] [address] 2020-11-21 2020-11-21 Inpatient [facility] [[email or web address]] [id number] [facility] St 00:00:00 00:00:00 DAVIS [id number] [facility], [id number] Memor ia [address] [id number] l [address] ([address], V/SA) [place] [address] 2020-11-21 2020-11-21 Inpatient [facility] [[email or web address]] [id number] [facility] St 00:00:00 00:00:00 DAVIS [id number] [facility], [id number] Memor ia [address] [id number] l [address] ([address], V/SA) [place] [address] 2020-11-14 2020-11-[address] YURYKHUSHI EMD [id number] [facility] [address] 09:27:00 14:37:00 UNS REHAN Isra WITHOUT Memoria BLEEDING l (LUF/LI V/SA) 2020-11-14 2020-11-14 Inpatient [facility] [[email or web address]] [id number] [facility] St 00:00:00 00:00:00 DAVIS [id number] [facility], [id number] Memor ia [address] [id number] l [address] ([address]/LI [address], V/SA) [place] [address] 2020-11-14 2020-11-14 Inpatient [facility] [[email or web address]] [id number] [facility] St 00:00:00 00:00:00 DAVIS [id number] [facility], [id number] Memor ia [address] [id number] l [place] ([address], V/SA) [place], [place] [address] 2020-11-08 2020-11-08 OTHER E YURY, [facility] [[email or web address]] [id number] [facility] St 08:04:00 13:13:00 CHRONIC REHAN [facility], Memoria [address] ([address], V/SA) [place] [address] 2020-11-08 2020-11-08 Inpatient [facility] [[email or web address]] 8079 [id number] [facility] St 00:00:00 00:00:00 DAVIS [id number] [facility], [id number] Memor ia [address] [id number] l [place] ([address], V/SA) [place] [address] 2020-11-08 2020-11-08 Inpatient [facility] [facility] [[email or web address]] 0f07 dc59-5 [facility] St 00:00:00 00:00:00 DAVIS [id number] [facility], [id number] Memor ia [address] [id number] l [place] (LUF/LI A[address], V/SA) [place], [place] [address] 2020-11-08 2020-11-08 Inpatient [email or web address]] 40b4 [id number]-1 [facility] St 00:00:00 00:00:00 DAVIS [id number] [facility], [id number] Memor ia [address] [id number] l [place] (LUF/LI AVE, V/SA) [place], [place] [address] 2020-11-01 2020-11-01 NAUSEA Jake WANDA, [email or web address]] 94057 55129 [facility] St 00:27:00 03:55:00 WITH CLEKRYSTINA [facility], Memoria UNSPECIFIE [address] l D [place] (LUF/LI AVE, V/SA) JULIÁN ROSA [address] 2020-11-01 2020-11-01 Inpatient [email or web address]] [id number] [id number]-[id number] [facility] 00:[facility]:00 DAVIS [id number] [facility], [id number] Memor ia [address] [id number] l [place] (LUF/LI AVE, V/[place]) [place] [address] 2020-11-01 2020-11-01 Inpatient [email or web address]] 79c0 [id number] 00:[facility]:00 00:00:00 DAVIS [id number] [facility], [id number] Memor ia [address] [id number] l [place] (LUF/LI AVE, V/[place]) [place] [address] 2020-10-04 2020-10-05 OTHER E RODRICK, [email or web address]] [address] 23:32:00 01:00:00 CHRONIC JUAN [facility] PAIN [place], [facility] [address] [place] (LUF/LI AVE, V/SA) [place] [address] 2020-10-04 2020-10-04 Inpatient [email or web address]] b016 [id number]-a [facility] 00:00:00 DAVIS [id number] [facility], [id number] Memor ia [address] [id number] l [place] (LUF/LI AVE, V/[place]) [place] [address] 2020-10-04 2020-10-04 Inpatient [email or web address]] ea96 [id number] 00:00:00 00:00:00 DAVIS [id number] [facility], [id number] Memor ia [address] [id number] l [place] (LUF/LI AVE, V/[place]) [place] [address] 2020-09-18 2020-09-18 OTHER E [email or web address]] [id number] [address] 01:00:00 04:44:00 CHRONIC [facility] PAIN [place], Memoria [address] [place] (LUF/LI AVE, V/SA) [place] [address] 2020-09-18 2020-09-18 Inpatient [email or web address]] b80a 7ee5-[address] 00:00:00 00:00:00 DAVIS [id number] [facility], [id number] Memor ia [address] [id number] l [place] (LUF/LI AVE, V/[place]) [place] [address] 2020-09-18 2020-09-18 Inpatient [email or web address]] 1a33 0198-a [facility] 00:[facility]:00 00:00:00 DAVIS [id number] [facility], [id number] Memor ia [address] [id number] l [place] (LUF/LI AVE, V/[place]) [place] [address] 2020-09-12 2020-09-12 ENDOMETRIO E RODRICK, [email or web address]] [id number] [facility] St 00:46:00 02:38:00 SIS [facility] UNSPECIFIE [place], Memor ia D [address] l [place] (LUF/LI AVE, V/SA) [place] [address] 2020-09-12 2020-09-12 Inpatient [email or web address]] 726d 153b-a [facility] 00:[facility]:00 00:00:00 DAVIS [id number] [facility], [id number] Memor ia [address] [id number] l [place] (LUF/LI AVE, V/SA) [place] [address] 2020-09-12 2020-09-12 Inpatient [email or web address]] 9a2d b59c-c [facility] 00:[facility]:00 00:00:00 DAVIS [id number] [facility], [id number] Memor ia [address] [id number] l [place] (LUF/LI AVE, V/SA) [place] [address] 2020-08-22 2020-08-22 OTHER E KOSCIUK, [email or web address]] [address] 01:13:00 03:24:00 CHRONIC [facility]AN [place] [place] [facility] [address] (LUF/LI AVE, V/SA) [place] [address] 2020-08-22 2020-08-22 Inpatient [email or web address]] 7a1d [id number] 00:00:00 00:00:00 DAVIS [id number] [facility], [id number] Memor ia [address] [id number] l [place] (LUF/LI AVE, V/[place]) [place] [address] 2020-08-22 2020-08-22 Inpatient [email or web address]] 53d3 2542-f [facility] 00:[facility]:00 00:00:00 DAVIS [id number] [facility], [id number] Memor ia [address] [id number] l [place] (LUF/LI AVE, V/[place]) [place] [address] 2020-08-06 2020-08-06 Inpatient E SANANAVDEEP, [email or web address]] [id number] 01:21:00 03:35:00 [facility] [address] (LUF/LI AVE, V/[place]) [place] [address] 2020-08-06 2020-08-06 Inpatient [email or web address]] 07b7 067c-a [facility] 00:00:00 00:00:00 DAVIS [id number] [facility], [id number] [facility] [address] [id number] l [place] (LUF/LI AVE, V/SA) [place] [address] 2020-07-19 2020-07-19 RIGHT E YURY, [email or web address]] [id number] 07:50:00 11:20:00 [facility] PAIN [address] (LUF/LI AVE, V/SA) [place] [address] 2020-07-19 2020-07-19 Inpatient [email or web address]] 625d 6050-c [facility] 00:00:00 00:00:00 DAVIS [id number] [facility], [id number] Memor ia [address] [id number] l [place] (LUF/LI AVE, V/[place]) [place] [address] 2020-07-19 2020-07-19 Inpatient [email or web address]] 0f28 [id number] [facility] St 00:00:00 00:00:00 DAVIS [id number] [facility], [id number] Memor ia [address] [id number] l [place] (LUF/LI AVE, V/[place]) [place] [address] 2020-07-05 2020-07-05 OTHER E RODRICK, [email or web address]] 03219 04777 [facility] St 02:42:00 05:00:00 CHRONIC JUAN [facility] [address] (LUF/LI AVE, V/SA) [place] [address] 2020-07-05 2020-07-05 Inpatient [email or web address]] 525e 4189-f [facility] 00:00:00 00:00:00 DAVIS [id number]-[id number] [facility], [id number] Memor ia [address] [id number] l [place] (LUF/LI AVE, V/SA) [place] [address] 2020-07-05 2020-07-05 Inpatient [email or web address]] c54b [id number] [facility] St 00:00:00 00:00:00 DAVIS [id number] [facility], [id number] Memor ia [address] [place] [id number] l [place] (LUF/LI AVE, V/SA) [place] [address] 2020-06-10 2020-06-10 (TEL) [facility] [id number] Co mmon 00:00:00 00:00:00 Spirit - [facility] 2020-06-07 2020-06-07 Inpatient 1 YURY, [email or web address]] [id number] [facility] St 12:56:00 19:04:00 REHAN [facility] [address] (LUF/LI AVE, V/SA) [place] [address] 2020-06-07 2020-06-07 Inpatient [email or web address]] 5603 9727-e [facility] 00:00:00 00:00:00 DAVIS [id number] [facility], [id number] [facility] [address] [id number] l [place] (LUF/LI AVE, V/SA) [place] [address] 2020-05-31 2020-05-31 Inpatient E COTTON, [facility] [place] [address]74 [id number] [facility] St 09:31:00 14:13:00 [facility] [address] (LUF/LI AVE, V/SA) [place] [address] 2020-05-10 2020-05-10 Outpatient STLMLC STLMLC [id number] Common 00:00:00 00:00:00 [facility] 2020-05-09 2020-05-09 Outpatient STLMLC STLMLC [id number] Common 00:00:00 00:00:00 [facility] 2020-05-05 2020-05-05 Outpatient STLMLC STLMLC [id number] Common 00:00:00 00:00:00 [facility] 2020-05-02 2020-05-02 Outpatient STLMLC STLMLC [id number] Common 00:00:00 00:00:00 [facility] 2020-05-02 2020-05-02 Outpatient STLMLC STLMLC [id number] Common 00:00:00 00:00:00 [facility] 2020-04-29 2020-04-29 Outpatient STLMLC STLMLC [id number] Common 00:00:00 00:00:00 [facility] 2020-04-25 2020-04-25 LEFT LOWER E [facility] [id number] 16:46:00 21:30:00 [facility] [address] (LUF/LI AVE, V/SA) [place] [address] 2020-04-22 2020-04-22 Outpatient STLMLC STLMLC [id number] Common 00:00:00 00:00:00 [facility] 2020-04-20 2020-04-20 PROC&TX [facility] [id number] [facility] St 15:39:00 16:03:00 NOT EAST [facility] OUT PT [address] stefanie MEHTA (TIERA/YUKI WEBB, Ольга/SA) [place] [address] 2020-04-20 2020-04-20 Outpatient STLMLC STLMLC [id number] Common 00:00:00 00:00:00 [facility] 2020-04-20 2020-04-20 Outpatient STLMLC STLMLC [id number] Common 00:00:00 00:00:00 [facility] 2020-04-15 2020-04-15 Outpatient STLMLC STLMLC [id number] Common 00:00:00 00:00:00 [facility] 2020-04-13 2020-04-13 Outpatient STLMLC STLMLC [id number] Common 00:00:00 00:00:00 [facility] 2020-04-12 2020-04-12 Outpatient STLMLC STLMLC [id number] Common 00:00:00 00:00:00 [facility] 2020-04-11 2020-04-11 Outpatient STLMLC STLMLC [id number] Common 00:00:00 00:00:00 [facility] 2020-04-08 2020-04-08 Outpatient STLMLC STLMLC [id number] Common 00:00:00 00:00:00 [facility] 2020-04-06 2020-04-06 Outpatient STLMLC STLMLC [id number] Common 00:00:00 00:00:00 [facility] 2020-04-04 2020-04-04 Outpatient STLMLC STLMLC [id number] Common 00:00:00 00:00:00 [facility] 2020-03-31 2020-03-31 Outpatient STLMLC STLMLC [id number] Common 00:00:00 00:00:00 [facility] 2020-03-29 2020-03-29 Outpatient GEOVANI BLAS MDA MDA [id number] MD 00:00:00 00:00:00 PRAVEEN payton 2020-03-29 2020-03-29 Outpatient STLMLC STLMLC [id number] Common 00:00:00 00:00:00 [facility] 2020-03-28 2020-03-28 Outpatient STLMLC STLMLC [id number] Common 00:00:00 00:00:00 [facility] 2020-03-22 2020-03-22 Outpatient STLMLC STLMLC [id number] Common 00:00:00 00:00:00 [facility] 2020-03-21 2020-03-21 Outpatient STLMLC STLMLC [id number] Common 00:00:00 00:00:00 [facility] 2020-03-20 2020-03-20 FEDE COTTON, [facility] [place] [id number] 17:08:00 22:56:00 ABDOMINAL REHAN [facility] PAIN [facility] UNSPECIFIE [address] Chin MEHTA (LUF/LI AVE, V/SA) [place] [address] 2020-03-14 2020-03-17 CELLULITIS E RIVERA, [facility] [place] [id number] 14:54:00 11:30:00 OF YAZDANISM [facility] ABDOMINAL [place], [facility] a WALL [address] (LUF/LI AVE, V/SA) [place] [address] 2020-03-03 2020-03-03 [facility] 03289 82 Common 13:33:00 13:33:00 [facility] 2020-03-02 2020-03-02 ALEJANDRA WOLFE, [facility] [place] [id number] 05:58:00 15:35:00 PERITON LIZBETH [facility] POSTINFECT [address] KIERAN MEHTA (LUF/LI AVE, V/SA) [place] [address] 2020-03-02 2020-03-02 Outpatient STLMLC STLMLC [id number] Common 00:00:00 00:00:00 [facility] 2020-03-01 2020-03-01 Outpatient [facility] [id number] Common 09:15:00 09:15:00 Clinics [facility] 2020-02-29 2020-02-29 Outpatient [facility] [id number] Common 09:30:00 09:30:00 Clinics [facility] 2020-02-25 2020-02-27 LOWER E COTTON, [facility] [place] [id number] [facility] St 13:21:00 12:09:00 ABDOMINAL REHAN [facility] PAIN [facility] UNSPECIFIE [address] D [address] (LUF/LI AVE, V/[place]) [place] [address] 2020-02-25 2020-02-25 UNSPECIFIE E RODRICK, [email or web address]] [id number] [facility] St 00:40:00 05:00:00 D JUAN [facility] ABDOMINAL [place], [facility] PAIN [address] (LUF/LI AVE, V/SA) [facility] [place] [address] 2020-01-25 2020-01-25 LOW BACK 1 COTTON, [email or web address] [id number] [facility] 11:28:00 13:15:00 [facility] [address] (LUF/LI AVE, V/[place]) [place] [address] 2020-01-18 2020-01-18 Outpatient [facility] [id number] Common 11:45:00 11:45:00 Clinics [facility] 2019-12-09 2019-12-09 OTHER E [email or web address] [id number] [facility] 03:03:00 05:08:00 CHRONIC [facility] PAIN [place], [facility] [address] (LUF/LI AVE, V/[place]) [place] [address] 2019-11-24 2019-11-24 UNSPECIFIE E [email or web address] [id number] [facility] St 00:31:00 05:30:00 D [facility] ABDOMINAL [place], [facility] PAIN [address] (LUF/LI AVE, V/[place]) [place] [address] 2019-10-07 2019-10-07 RIGHT 1 COTTON, [email or web address]] 90457 42217 [facility] St 20:35:00 23:10:00 [facility], Memoria PAIN [address] (LUF/LI AVE, V/SA) [place] [address] 2019-09-20 2019-09-20 RIGHT 1 COTTON, [email or web address] [address] 00:33:00 04:23:00 [facility] [place], Memoria PAIN [address] (LUF/LI AVE, V/SA) [place] [address] 2019-08-17 2019-08-17 UNSPECIFIE 1 TRUX, [email or web address] [id number] 02:18:00 04:45:00 D YAZDANISM DAVIS [facility], [facility] PAIN [address] (LUF/LI AVE, V/SA) [place] [address] 2019-04-22 2019-04-22 [facility] [id number] Common 12:03:00 12:03:00 Clinics [facility] 2019-04-14 2019-04-14 [facility] [id number] Common 16:12:00 16:12:00 [facility] 2019-04-06 2019-04-06 [facility] [id number] Common 12:16:00 12:16:00 [facility] 2019-03-31 2019-03-31 [facility] [id number] Common 14:00:00 14:00:00 [facility] 2018-12-07 2018-12-07 UNSPECIFIE 1 QUINTIN BRITO [email or web address] [id number] [facility] 01:06:00 04:45:00 D OVARIAN DAVIS [facility] CYST RIGHT [place], [facility] SIDE [address] (LUF/LI AVE, V/SA) [place] [address] 2018-10-29 2018-10-29 N-PRSS CHR JAY, [email or web address]] [id number] [facility] 06:59:00 23:59:00 ULCR SKIN MIKY [facility] [address] (LUF/LI A[place], V/[place]) [place] [address] 2018-10-22 2018-10-22 N-PRSS CHR BLAKESTAD, [email or web address]] [id number] [facility] 07:20:00 23:59:00 ULCR SKIN MIKY [facility] [address] (LUF/LI A[place], V/[place]) [place] [address] 2018-10-15 2018-10-15 N-PRSS CHR O BLAKESTAD, [email or web address]] [id number] [facility] St 07:08:00 23:59:00 ULCR SKIN MIKY [facility] [address] (LUF/LI A[address], V/[place]) [place] [address] 2018-09-30 2018-10-01 INFCT FOL 1 SHABNAM, [email or web address]] [id number] [facility] St 18:46:00 01:05:00 PRC SUPF [facility] SIT INIT [address] (LUF/LI A[place], V/[place]) [place] [address] 2018-09-01 2018-09-01 OTH 1 WANDA, [facility] [place] [id number] 09:12:00 14:00:00 NONINFL CLEMENT [facility] D/O OVARY [facility] a TUBE&BRD [address] LIG [address] (LUF/LI AVE, V/[place]) [place] [address] 2018-05-13 2018-05-13 Inpatient 1 WANDA, [facility] [place] [id number] 10:52:00 13:46:00 CLEMENT [facility] [address] (LUF/LI A[address], V/[place]) [place] [address] 2017-12-24 2017-12-24 UNSPECIFIE 1 QUINTIN BRITO [email or web address] [id number] [facility] 07:51:00 13:52:00 D OVARIAN [facility] s CYST RIGHT [place], [facility] SIDE [address] (LUF/LI [place], V/[place]) [place] [address] 2017-06-20 2017-06-21 HYDRONPHRO 1 RODRICK, [facility] [id number] [facility] 23:01:00 03:55:00 S JUAN [facility] RENL&URETR [place], Memor ia L CALCUL [address]ST [address] (LUF/LI A[place], V/[place]) [place] [address] 2017-05-13 2017-05-13 OTHER 3 MERLE, [facility] [id number] 7448 [facility] St 15:40:00 23:59:00 FATIGUE ASA [facility], Memoria [address] ([address]F/LI [address], V/[place]) [place] [address] Results Test Description Test Time Test Comments Results Result [facility] e Comments - XR SHOULDER 2 + 2022-04-23 V LT 16:42:00 [facility] : 1985 Sex: F Patient Name: LAUREN BETH Unit No: [id number] EXAMS: CPT CODE: [id number] XR SHOULDER 2 + [place] [address] Left shoulder 3 views COMMENT: There is no evidence for fracture or subluxation. No focal bony lesions are seen. at 1642 Reported and signed by: Angelo Hardin MD CC: Truman Quintero MD Technologist: Jeannette Garcia RT.(R) Transcribed D/ (1641) VereniceJCL [facility] NAME: LAUREN BETH [address] [facility] PHYS: Truman Alfaro MD : 1985 AGE: 36 SEX: F [place] [id number] LOC: JOHNNIE PHONE #: [phone] EXAM DATE: 04/23/2022 STATUS: DEP ER FAX #: [phone] RAD #: D/C DT PAGE 1 Signed Report Patient Name: LAUREN BETH Unit No: [id number] EXAMS: CPT CODE: [id number] XR SHOULDER 2 + [place] [address]84 (Continued) Orig Print D/T: S: 04/23/2022 (1644) [facility] NAME: LAUREN BETH [address] [facility] PHYS: Truman Alfaro MD : 1985 AGE: 36 SEX: F [place] [address] LOC: JOHNNIE PHONE #: [phone] EXAM DATE: 04/23/2022 STATUS: DEP ER FAX #: [phone] RAD #: D/C DT PAGE 2 Signed Report COMP. METABOLIC PANEL (74953) 2022-02-19 14:56:05 Test Item Value Reference Range Interpretation Comme nts NA (test code = 1765867642) 137 mmol/L 135-145 K (test code = 8992473169) 4.2 mmol/L 3.5-5 CL (test code = 4168628802) 108 mmol/L 98-108 CO2 TOTAL (test code = 3409941012) 19 mmol/L 23-31 L AGAP (test code = 3326164905) 2-16 BUN (test code = 6084825706) 14 mg/dL 7-23 GLUCOSE (test code = 4068830858) 133 mg/dL 70-110 H CREATININE (test code = 0.56 mg/dL 0.5-1.04 0653609484) TOTAL BILI (test code = 0.4 mg/dL 0.1-1.2 6766189600) CALCIUM (test code = 3741986551) 8.9 mg/dL 8.6-10.6 T PROTEIN (test code = 2605497644) 6.5 g/dL 6.3-8.2 ALBUMIN (test code = 1815115831) 4.0 g/dL 3.5-5 ALK PHOS (test code = 6447035583) 84 U/L 34-122 ALTv (test code = 1742-6) 23 U/L 5-35 AST(SGOT) (test code = 9464582544) 24 U/L 13-40 eGFR (test code = 4328522338) mL/min/1.73m2 RENZO (test code = RENZO) Association [...] tests). Lab Interpretation (test code = Abnormal 10218-0) [facility] 14:55:44 Test Item Value Reference Range Interpretation Comments LIPASE (test code = 5208627399) 81 U/L 0-220 Lab Interpretation (test code = Normal 99751-1) [facility] WITH [id number] 14:36:26 Test Item Value Reference Range Interpretation [...] RDW-SD (test code = 43.9 fL 39-49.9 55559-9) RDW-CV (test code = 13.7 % 12-15.5 788-0) PLT (test code = See_Comment [Automated 777-3) message] The sy stem which generated this result transmitted reference range : 166 - 358 10*3/ ?L. The reference r bruce was not used to interpret this result as normal/abnormal . MPV (test code = 8.5 fL 9.5-12.9 L 09958-7) NRBC/100 WBC (test See_Comment [Automat ed code = 7835229363) message] The system which generated this result transmitted reference range : 0.0 - 10.0 /100 WBCs. The refer ence range was not u sed to interpret th is result as normal/abnormal . NRBC x10^3 (test code See_Comment [Auto mated = 9110450713) message] The s ystem which generated this result transmitted reference range : 10*3/?L. The reference range was not used to interpret this result as normal/abnormal . GRAN MAT (NEUT) % 58.7 % (test code = 770-8) IMM GRAN % (test code 1.10 % = 8780116872) LYMPH % (test code = 31.6 % 736-9) MONO % (test code = 6.8 % 5905-5) EOS % (test code = 1.4 % 713-8) BASO % (test code = 0.4 % 706-2) GRAN MAT x10^3(ANC) 3.30 10*3/uL 1.88-7.09 (test code = 9192707071) IMM GRAN x10^3 (test 0.06 10*3/uL 0-0.06 code = 0685968709) LYMPH x10^3 (test code 1.77 10*3/uL 1.32-3.29 = 731-0) MONO x10^3 (test code 0.38 10*3/uL 0.33-0.92 = 742-7) EOS x10^3 (test code = 0.08 10*3/uL 0.03-0.39 711-2) BASO x10^3 (test code 0.01-0.07 = 704-7) Lab Interpretation Abnormal (test code = 16001-5) [facility] [id number] 22:58:14 Test Item Value Reference Range Interpretation Comments POCT Molecular FluA (test code = Negative Negative 13161-3) POCT Molecular FluB (test code = Negative Negative 40515-8) Lab Interpretation (test code = Normal 63708-1) [facility] FUN[facility] PANEL (LIVER)2021-10-16 13:57:00 Test Item Value [...] (test code = 0.2 mg/dl 0.0-1.1 IBIL) [id number] 13:57:00 Test Item Value Reference Range Interpretation Comments Lipase (test code = LIPA) 114 U/L 73-393 STLAMYLASE, [id number] 13:57:00 Test Item Value Reference Range Interpretation Comments Amylase (test code = AMYL) 51 U/L 25-115 [facility] CHEM [id number] 22:45:00 Test Item Value Reference Range Interpretation [...] code = CO2) 22.1 mmol/l 24.0-29.0 L [facility] CBC WITH AUTO [id number] 22:43:00 Test Item Value Reference Range Interpretation [...] = IG%) 0.2 % 0.0-0.4 STLMLHEPATIC FUNCTION [id number] 13:03:00 Test Item Value Reference Range Interpretation [...] 96 Unit/L 45-117 N code = ALKP) [id number] 13:03:00 Test Item Value Reference Range Interpretation Comments LIPASE (test code = LIP) 83 Unit/L 114-286 L BASIC METABOLIC [id number] 13:03:00 Test Item Value Reference Range Interpretation [...] 8.5-10.1 N UA RFLX MICR CULT IF [id number] 12:44:00 Test Item Value Reference Range Interpretation [...] OF URINE: CLEAN CATCH- CT ABD PELVIS W/[id number] 12:27:00 [facility] 1985 Sex: F Name: LAUREN BETH [facility] : 1985 Age/S: 36 / F [address] [address] [place] Unit #: [id number]: Julián Holcomb [address] Phys: Marco Hilton 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 CC: Olga Clements DO; Marco Hilton NP Technologist:RT Danyelle(R) CTDI: DLP: Trnscb Date/Time: 08/07/2021 (1227) [email or web address] Orig Print D/T: S: 08/07/2021 (6905) PAGE 2 Signed ReportCBC W/AUTO [id number] 12:23:00 Test Item Value Reference Range Interpretation [...] DIFF/SCN CRITERIA = MDIFF) [facility]IR[facility] 2019 [facility])2021-03-24 17:04:00 Test Item Value Reference Range Interpretation Comments FT (test code Negative Negative N The [employer] SARS -CoV-2 = COVID) (qualifier value) Reagents f or BD MAX System, the [employer] Covid-19, and janel bolden Cepheid Covid-1 9 [...] contact the Coronavirus [facility] at [phone]. [id number] 12:37:00 Test Item Value Reference Range Interpretation [...] 0.5-1.3 code = CREA) EGFR if >60 Afghan (test code mL/min/1.73m\\ = EGFRAA) S\\2 EGFR if Non- >60 Estimate d Glomerular Afghan (test code mL/min/1.73m\\ Filtrat ion Rate (eGFR) [...] of c hronic kidney failure. STLMLSTAT LAB [id number] 12:11:00 Test Item Value Reference Range Interpretation [...] after the clini felipa event. STLMLPT AND [id number] 12:09:00 Test Item Value Reference Range Interpretation Comments Protime (test code 9.5 seconds 9.5-12.1 = PT) INR (test code = 0.9 0.9-1.1 INR results are intended INR) ONLY to monitor Oral Anticoagulant t herapy in stablized patie nts. The INR Therapeutic Range is 2.0 - 3.0 Patie nts with a mechanical he art, the INR Range is 2. 5 - 3.5 [id number] 12:09:00 Test Item Value Reference Range Interpretation Comments aPTT (test code = PTT) 22.3 seconds 23.9-30.7 L STLMLSTAT LAB CBC WITH AUTO [id number] 11:57:00 Test Item Value Reference Range Interpretation [...] 0.3 % 0.0-0.4 STLMLXR CHEST AP/PA 1 [id number] 11:33:32 [facility])Name: LAUREN BETH : 1985 Sex: FProcedure: XR CHEST AP/PA 1 VIEWOrder Date: 03/24/2021 10:57 AMOrdering Provider: REHAN Farrellinical Indication: [id number]: DyspneaComparison: September 30, 2018Findings:Cardiac size is normal.Pulmonary vasculature is normal.Mediastinal contour is normal.Aortic contour is normal.No acute infiltrates or effusions.There is no mass or pneumothorax.There is no evidence of active tuberculosis.There isno acute skeletal abnormality.Impression: Negative AP view of the chest.This final report was electronically signed by Dr Farzad Dewitt MD :28 AMDictated By: FARZAD DEWITTDate: :28STLMLCULTURE, [id number] 08:00:00Specimen: Urine SpecimensCollected: 03/10/2021 11:50 Status: Final [...] code = NEGATIVE NEGATIVE N UKET) Specific [place] 1.015 1.005-1.030 A (test code = USPGR) Blood (test code = NEGATIVE NEGATIVE N UBLD) PH (test code = UPH) 7.0 4.5-8.0 A Protein (test code = NEGATIVE NEGATIVE N UPROT) Urobilinogen (test 0.2 See_Comment N [Automat ed message] code = U UROB) The system [facility] generated this result transmit michael reference [...] SEEN A Epithelial (test code = NSE) [facility] [place] CBC WITH AUTO [id number] 12:10:00 Test Item Value Reference Range Interpretation [...] code = IG%) 0.8 % 0.0-0.[address] [facility] [id number] 12:08:00 Test Item Value Reference Range Interpretation [...] = CREA) 0.5 mg/dl 0.6-1.3 L STLMLCULTURE, [id number] 08:26:00Specimen: Urine SpecimensCollected: 02/23/2021 08:35 Status: Final Last Updated: 02/24/2021 08:26 CULTURE (Final) (Final) Many Mixed Body Gabriela Isolated No Pathogens IsolatedSTLMLCT ABDOMEN/PELVIS W/[id number] 11:40:43 [facility]Name: LAUREN BETH : 1985 Sex: FProcedure: CT ABDOMEN/PELVIS W/CONTRASTOrder date: 02/23/2021 10:08 AMOrdering Provider: REHAN Farrellinical Indication: [id number]: Right lower quadrant painComparison: November 14, 2020Technique: [...] MD 111:35 AMDictated By: WILEY VELÁZQUEZDate: 02/23/2021 11:[id number] 10:44:00 Test Item Value Reference Range Interpretation Comments Lipase (test code = LIPA) 86 U/L 73-393 STLMLURINALYSIS WITH [id number] 08:58:00 Test Item Value Reference Range Interpretation Comments Color (test code = Light-Yellow UCOLR) Clarity (test code = Clear UCLAR) Glucose (test code = NEGATIVE NEGATIVE N UGLUC) Bilirubin (test code NEGATIVE NEGATIVE N = UBILI) Ketones (test code = NEGATIVE NEGATIVE N UKET) Specific [place] 1.020 1.005-1.030 A (test code = USPGR) Blood (test code = NEGATIVE NEGATIVE N UBLD) PH (test code = UPH) 6.0 4.5-8.0 A Protein (test code = NEGATIVE NEGATIVE N UPROT) Urobilinogen (test 0.2 See_Comment N [Automat ed message] code = U UROB) The system [facility] generated this result transmit michael reference [...] 41-50 0-10 A (test code = SQEP) [facility] CBC WITH AUTO [id number] 08:52:00 Test Item Value Reference Range Interpretation [...] (test code = IG%) 0.3 % 0.0-0.4 [facility] CHEM [id number] 08:52:00 Test Item Value Reference Range Interpretation [...] (test code = CREA) 0.6 mg/dl 0.6-1.3 [facility] CBC WITH AUTO [id number] 02:37:00 Test Item Value Reference Range Interpretation [...] A value of 55 was entered by [id number] on 01/10/2021 02:3 7 Lymphocytes (test 43 % 13-42 H No previou s value code = LYMPH) was reported. A value of 43 was entered by [id number] on 01/10/2021 02:3 7 Monocytes (test 1 % 4-14 L No previous value code = MONOS) was reported. A value of 1 was entered by [id number] on 01/10/2021 02:3 7 Basophils (test 1 % 0-1 No previous value code = BASO) was reported. A value of 1 was entered by [id number] on 01/10/2021 02:3 7 Normal Morphology Normal WBC RBC Normal RBC \\T\\ N No pre vious value (test code = NRCM) and Platelet WBC was repor michael. A Morphology Morphology,Normal value of N ormal WBC RBC and WBC RBC and Platelet Platelet Morphology Morphology was entered by [id number] on 01/10/2021 02:3 7 STLMLAMYLASE, [id number] 02:14:00 Test Item Value Reference Range Interpretation Comments Amylase (test code = AMYL) 46 U/L 25-115 [id number] 02:14:00 Test Item Value Reference Range Interpretation Comments Lipase (test code = LIPA) 115 U/L 73-393 STLMLURINALYSIS WITH [id number] 02:07:00 Test Item Value Reference Range Interpretation Comments Color (test code = Light-Yellow UCOLR) Clarity (test code = Cloudy UCLAR) Glucose (test code = NEGATIVE NEGATIVE N UGLUC) Bilirubin (test code NEGATIVE NEGATIVE N = UBILI) Ketones (test code = NEGATIVE NEGATIVE N UKET) Specific [place] 1.025 1.005-1.030 A (test code = USPGR) Blood (test code = NEGATIVE NEGATIVE N UBLD) PH (test code = UPH) 6.0 4.5-8.0 A Protein (test code = NEGATIVE NEGATIVE N UPROT) Urobilinogen (test 0.2 See_Comment N [Automat ed message] code = U UROB) The system [facility] generated this result transmit michael reference [...] SEEN A Epithelial (test code = NSE) [facility] CHEM [id number] 01:50:00 Test Item Value Reference Range Interpretation [...] (test code = CREA) 0.6 mg/dl 0.6-1.[facility] W/[id number] 03:46:00 [facility] 1985 Sex: F FAX: Annemarie Tesfaye [phone] [place]: St: REG Name: LAUREN BETH [facility] : 1985 Age/S: 35/F [address] Unit: [id number] Loc: [place] [address] Phys: Annemarie Tesfaye 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 Acct: [id number] Dis Date: Status: REG ER PHONE #: [phone] Exam Date: 12/13/2020324 FAX #: [phone] Reason: DIFFUSE ABD PAIN WORSE RLQ, HX APPY, ROSE EXAMS: CPT CODE: [id number] CT ABD PELVIS W/[id number] AFTER HOURS SERVICE ON: 12/13/2020 3:44 AM [...] at 0346 Reported and signed by: Neo Batres PAGE 1 Signed Report (CONTINUED) FAX: MeraAnnemarie [phone] [place]: St: REG------- Name: BETHJEANEALECIA Merritt [facility] : 1985 Age/S: 35/F [address] Unit: [id number] Loc: [place] [address] Phys: Annemarie Tesfaye NP Acct: [id number] Dis Date: Status: REG ER PHONE #: [phone] Exam Date: 12/13/2020324 FAX #: [phone] Reason: DIFFUSE ABD PAIN WORSE RLQ, HX APPY, ROSE EXAMS:CPT CODE: [id number] CT ABD PELVIS W/CONT 34011 <Continued> CC: Annemarie Tesfaye NP Technologist: PAMELA KRISHNAMURTHY; Jessi Guillory; JAIRO SANCHEZ JR Trnscrd Dt/Tm: 12/13/2020 (0346) [email or web address] Orig Print D/T: S: 12/13/2020 (0345 PAGE 2 Signed ReportCOMPREHENSIVE METABOLIC [id number] 03:32:00 Test Item Value Reference Range Interpretation [...] U/L 38-126 N (test code = ALKP) [id number] 03:32:00 Test Item Value Reference Range Interpretation Comments LIPASE (test code = LIP) 82 U/L 23-300 N BEDSIDE [id number] 03:24:00 Test Item Value Reference Range Interpretation Comments BEDSIDE CREATININE (test code = 0.60 mg/dL 0.51-1.19 N CREATBED) CBC W/AUTO [id number] 03:14:00 Test Item Value Reference Range Interpretation [...] 0.0-0.1 N UA RFLX MICR CULT IF [id number] 02:59:00 Test Item Value Reference Range Interpretation [...] OF URINE: VOIDEDSTAT LAB CBC WITH AUTO [id number] 15:12:00 Test Item Value Reference Range Interpretation [...] by [id number] on 12/12/2020 15:12 [facility] CHEM [id number] 14:08:00 Test Item Value Reference Range Interpretation [...] [facility] URINALYSIS WITHOUT [id number] 12:08:00 Test Item Value Reference Range Interpretation Comments Color (test code = Light-Yellow UCOLR) Clarity (test code = Cloudy UCLAR) Glucose (test code = NEGATIVE NEGATIVE N UGLUC) Bilirubin (test code NEGATIVE NEGATIVE N = UBILI) Ketones (test code = NEGATIVE NEGATIVE N UKET) Specific [place] 1.015 1.005-1.030 A (test code = USPGR) Blood (test code = NEGATIVE NEGATIVE N UBLD) PH (test code = UPH) 7.0 4.5-8.0 A Protein (test code = NEGATIVE NEGATIVE N UPROT) Urobilinogen (test 0.2 See_Comment N [Automat ed message] code = U UROB) The system [email or web address] generated this result transmit michael reference range : 0.2. The refere nce range was not u sed to interpret th is result as normal/abnormal . Nitrite (test code = NEGATIVE NEGATIVE N UNITR) Leukocyte Esterase NEGATIVE NEGATIVE N (test code = ULEUK) [facility] FUNCTION PANEL (LIVER)2020-11-21 08:43:00 Test Item Value [...] (test code = 0.4 mg/dl 0.0-1.1 IBIL) [facility] WITH [id number] 08:31:00 Test Item Value Reference Range Interpretation Comments Color (test code = Light-Yellow UCOLR) Clarity (test code = Clear UCLAR) Glucose (test code = NEGATIVE NEGATIVE N UGLUC) Bilirubin (test code NEGATIVE NEGATIVE N = UBILI) Ketones (test code = NEGATIVE NEGATIVE N UKET) Specific [place] 1.020 1.005-1.030 A (test code = USPGR) Blood (test code = NEGATIVE NEGATIVE N UBLD) PH (test code = UPH) 6.5 4.5-8.0 A Protein (test code = NEGATIVE NEGATIVE N UPROT) Urobilinogen (test 0.2 See_Comment N [Automat ed message] code = U UROB) The system [email or web address] generated this result transmit michael reference range [...] [facility] CHEM [id number] 08:27:00 Test Item Value Reference Range Interpretation [...] [facility] CBC WITH AUTO [id number] 08:26:00 Test Item Value Reference Range Interpretation [...] (test code = IG%) 0.4 % 0.0-0.4 [facility] 2 VIEWS FLAT / [id number] 08:18:50[facility] ([facility])Name: LAUREN BETH : 1985 Sex: FProcedure: XR ABDOMEN 2 VIEWS FLAT / UPRIGHTOrder Date: 11/21/2020 7:43 AMOrdering Provider: REHAN Farrellinical Indication: [id number]: Abdominal painComparison: Nov 14 2020Findings:Bowel gas pattern is non-obstructive. No pneumoperitoneum.There is moderate volume stool burden.Surgical clips inthe right upper quadrant of the abdomen.Impression:Nonobstructive bowel gas pattern.This final report was electronically signed by Dr Silver Benitez MD :13 AMDictated By: GLORY BENITEZKDate: 11/21/2020 08:13[facility]BD[facility]EN/PELVIS [facility]/O CONTRAST 2020-11-14 14:11:31 [facility] ([facility])Name: LAUREN BETH : 1985 Sex: FProcedure: CT ABDOMEN/PELVIS W/O CONTRASTOrder Date: 11/14/2020 1:22 PMOrdering Provider: BILLY ACOTSA .Clinical Indication: [id number]: Right flank painComparison: Renal ultrasound November 08, [...] MD :05 PMDictated By: FARZAD DEWITTDate: 11/14/2020 14:05[facility] , [id number] 13:31:00 Test Item Value Reference Range Interpretation Comments (Urine) (test code = Negative PREGU) ONLY AVAILABLE 8A-12[facility] LAB CHEM [id number] 11:09:00 Test Item Value Reference Range Interpretation [...] [facility] URINALYSIS WITHOUT [id number] 11:08:00 Test Item Value Reference Range Interpretation Comments Color (test code = Yellow Lt. Yellow A UCOLR) Clarity (test code = Clear UCLAR) Glucose (test code = Negative Negative N UGLUC) Bilirubin (test code Negative Negative N = UBILI) Ketones (test code = Negative Negative N UKET) Specific [place] 1.025 1.005-1.030 A (test code = USPGR) Blood (test code = Trace-intact Negative A UBLD) PH (test code = UPH) 6.0 4.5-8.0 A Protein (test code = Negative Negative N UPROT) Urobilinogen (test 0.2 See_Comment N [Automat ed message] code = U UROB) The system [facility] generated this result transmit michael reference range : 0.2. The refere nce range was not u sed to interpret th is result as normal/abnormal . Nitrite (test code = Negative Negative N UNITR) Leukocyte Esterase Negative Negative N (test code = ULEUK) [facility] CBC WITH AUTO [id number] 11:05:00 Test Item Value Reference Range Interpretation [...] % 0.0-0.4 [facility] HealthcarekinC[facility]URE, [id number] 08:43:00Specimen: Urine SpecimensCollected: 11/08/2020 09:59 Status: Final Last Updated: 11/09/2020 08:43 CULTURE (Final) (Final) Few Mixed Body Gabriela Isolated No Pathogens [facility] BLADDER (KIDNEYS)2020-11-08 12:00:28[facility])Name: LAUREN BETH : 1985 Sex: FProcedure: US [...] AMDictated By: GLORY BENITEZKDate: 11/08/2020 11:54[facility]IN[facility] WITH MICROSCOPIC 2020-11-08 10:58:00 Test Item Value Reference Range Interpretation Comments Color (test code = Yellow UCOLR) Clarity (test code = Clear UCLAR) Glucose (test code = NEGATIVE NEGATIVE N UGLUC) Bilirubin (test code = NEGATIVE NEGATIVE N UBILI) Ketones (test code = NEGATIVE NEGATIVE N UKET) Specific [place] (test 1.030 1.005-1.030 A code = USPGR) Blood (test code = NEGATIVE NEGATIVE N UBLD) PH (test code = UPH) 6.0 4.5-8.0 A Protein (test code = NEGATIVE NEGATIVE N UPROT) Urobilinogen (test code 0.2 See_Comment N [Au tomated message] = U UROB) The system [employer] generated this result transmitted ref erence range: [...] 51-74 0-10 A (test code = SQEP) [facility] Medical CenterstefanieCULTGULF COAST [facility], [id number] 08:13:00ER 17Specimen: Urine SpecimensCollected: 11/01/2020 01:10 Status: Final Last Updated: 11/02/2020 08:13 (1) ER 17 CULTURE (Final) (Final) Few Mixed Body Gabriela Isolated No Pathogens [facility]olatedSt[facility]-LufkinXR ABD SERIES W/PA CXR 2020-11-01 03:48:37 [facility] ([facility])Name: LAUREN BETH : 1985 Sex: FPROCEDURE [...] CDT.Dictated By: FILIPPO RAMOSDate: 11/01/2020 03:48[facility]ISHEPATIC FUNCTION PANEL (LIVER)2020-11-01 02:14:00 Test Item Value [...] (test code = 0.1 mg/dl 0.0-1.1 IBIL) [address] LAB CHEM [id number] 01:57:00 Test Item Value Reference Range Interpretation [...] = CREA) 0.5 mg/dl 0.6-1.3 L ER [address] [place] [address]-LufkinURINALYSIS WITH [id number] 01:56:00 Test Item Value Reference Range Interpretation Comments Color (test code = Light-Yellow UCOLR) Clarity (test code = Clear UCLAR) Glucose (test code = 50 NEGATIVE A UGLUC) Bilirubin (test code NEGATIVE NEGATIVE N = UBILI) Ketones (test code = NEGATIVE NEGATIVE N UKET) Specific [place] 1.025 1.005-1.030 A (test code = USPGR) Blood (test code = NEGATIVE NEGATIVE N UBLD) PH (test code = UPH) 6.0 4.5-8.0 A Protein (test code = TRACE NEGATIVE A UPROT) Urobilinogen (test 0.2 See_Comment N [Automat ed message] code = U UROB) The system [facility] generated this result transmit michael reference [...] 0-10 A (test code = SQEP) ER [address] [place], [place] [address]kinSTA LAB CBC WITH AUTO [id number] 01:55:00 Test Item Value Reference Range Interpretation [...] (test code = IG%) 0.4 % 0.0-0.[address]-[place]buryHEPAT[place] FUN[place] PANEL ([place])2020-10-05 01:26:00 Test Item Value [...] code = 0.1 mg/dl 0.0-1.1 IBIL) er [address] [place], [place] [address]Sqgxdq-[id number] 01:26:00 Test Item Value Reference Range Interpretation Comments Lipase (test code = LIPA) 154 U/L 73-[address] [place] [address] LAB CHEM [id number] 01:15:00 Test Item Value Reference Range Interpretation [...] code = CREA) 0.6 mg/dl 0.6-1.[address] [place] [address] LAB , [id number] 01:14:00 Test Item Value Reference Range Interpretation Comments (Urine) (test code = Negative PREGU) [address] LAB CBC WITH AUTO [id number] 01:13:00 Test Item Value Reference Range Interpretation [...] = IG%) 0.9 % 0.0-0.4 H er [address] [place], [place] [address]Ubkurd-[id number] 04:21:00 Test Item Value Reference Range Interpretation Comments Lipase (test code = LIPA) 146 U/L 73-393 [facility] (LIVER)2020-09-18 04:21:00 Test Item Value [...] mg/dl 0.0-1.1 IBIL) [facility] CenterAMYLASE, [id number] 04:21:00 Test Item Value Reference Range Interpretation Comments Amylase (test code = AMYL) 47 U/L 25-115 [facility] CenterkinURINALYSIS WITH [id number] 03:06:00 Test Item Value Reference Range Interpretation Comments Color (test code = Light-Yellow UCOLR) Clarity (test code = Clear UCLAR) Glucose (test code = NEGATIVE NEGATIVE N UGLUC) Bilirubin (test code NEGATIVE NEGATIVE N = UBILI) Ketones (test code = TRACE NEGATIVE A UKET) Specific [place] 1.025 1.005-1.030 A (test code = USPGR) Blood (test code = NEGATIVE NEGATIVE N UBLD) PH (test code = UPH) 5.5 4.5-8.0 A Protein (test code = NEGATIVE NEGATIVE N UPROT) Urobilinogen (test 0.2 See_Comment N [Automat ed message] code = U UROB) The system [facility] generated this result transmit michael reference [...] [facility] LAB CHEM [id number] 02:51:00 Test Item Value Reference Range Interpretation [...] [facility] CBC WITH AUTO [id number] 02:50:00 Test Item Value Reference Range Interpretation [...] code = IG%) 0.5 % 0.0-0.4 H [facility]XR ABDOMEN 1 VIEW (KUB)2020-09-12 01:51:21 [facility])Name: LAUREN BETH : 1985 Sex: FPROCEDURE [...] CDT.Dictated By: CELESTINO ALLENDate: 09/12/2020 01:50[facility] STAT LAB CBC WITH AUTO [id number] 01:29:00 Test Item Value Reference Range Interpretation [...] [facility] LAB CHEM [id number] 01:28:00 Test Item Value Reference Range Interpretation [...] (test code = CREA) 0.6 mg/dl 0.6-1.3 [facility]buryURINALYSIS WITH [id number] 03:04:00 Test Item Value Reference Range Interpretation Comments Color (test code = Yellow UCOLR) Clarity (test code = Clear UCLAR) Glucose (test code = 100 NEGATIVE A UGLUC) Bilirubin (test code = NEGATIVE NEGATIVE N UBILI) Ketones (test code = TRACE NEGATIVE A UKET) Specific [place] (test >=1.030 1.005-1.030 A code = USPGR) Blood (test code = NEGATIVE NEGATIVE N UBLD) PH (test code = UPH) 5.5 4.5-8.0 A Protein (test code = NEGATIVE NEGATIVE N UPROT) Urobilinogen (test code 0.2 See_Comment N [Au tomated message] = U UROB) The system [employer] generated this result transmitted ref erence range: [...] code = 3+ None Seen,Trace A UBACT) [facility]-[id number] 03:01:00 Test Item Value Reference Range Interpretation [...] ( 4 - SerumAlbumin)] EGFR if >60 [place] (test code mL/min/1.73m\\ = EGFRAA) S\\2 EGFR if Non- >60 Estimate d Glomerular Afghan (test code mL/min/1.73m\\ Filtrat ion Rate (eGFR) [...] and management of c hronic kidney failure. [facility] HospitalAgozer-[id number] 03:01:00 Test Item Value Reference Range Interpretation Comments Lipase (test code = LIPA) 145 U/L 73-393 [facility] LAB TEST, Serum Qualitative 2020-08-22 02:48:00 Test Item Value Reference Range Interpretation Comments (Serum) (test code = Negative PREGS) [facility] LAB CBC WITH AUTO [id number] 02:28:00 Test Item Value Reference Range Interpretation [...] = IG%) 0.5 % 0.0-0.4 H [facility] CenterHEPATIC FUNCTION PANEL (LIVER)2020-08-06 02:59:00 Test Item Value [...] code = 0.1 mg/dl 0.0-1.1 IBIL) ER [address] [place], [place] [address]Rcyycg-[id number] 02:59:00 Test Item Value Reference Range Interpretation Comments Lipase (test code = LIPA) 167 U/L 73-[address] [place] [address]-LufkinURINALYSIS WITH [id number] 02:48:00 Test Item Value Reference Range Interpretation Comments Color (test code = UCOLR) Yellow Clarity (test code = UCLAR) Clear Glucose (test code = UGLUC) NEGATIVE NEGATIVE N Bilirubin (test code = UBILI) NEGATIVE NEGATIVE N Ketones (test code = UKET) NEGATIVE NEGATIVE N Specific [place] (test code = >=1.030 1.005-1.030 A USPGR) [...] = UBACT) 4+ None Seen,Trace A ER [address] [place] [address]-[place]CT ABDOMEN/PELVIS W/O [id number] 02:34:52ER 16 R/O KIDNEY STONE [facility])Name: LAUREN BETH : [id number] Sex: FPROCEDURE INFORMATION:Exam: CT Abdomen And Pelvis [...] CDT.Dictated By: HOLLIS FERRERADate: 08/06/2020 02:34[facility] CHEM 8 2020-08-06 02:29:00 Test [...] code = CREA) 0.4 mg/dl 0.6-1.[address] LAB CBC WITH AUTO [id number] 02:29:00 Test Item Value Reference Range Interpretation [...] = IG%) 0.7 % 0.0-0.4 H ER [address] [place] [id number] 09:31:00 Test Item Value Reference Range Interpretation Comments Lipase (test code = LIPA) 117 U/L 73-393 [facility] CenterHEPAT[facility] FUNCTION PANEL (LIVER)2020-07-19 09:31:00 Test Item Value [...] mg/dl 0.0-1.1 IBIL) [facility] CenterXR [facility]BDOMEN 2 VIEWS FLAT / [id number] 09:22:50[facility])Name: LAUREN BETH : [id number] Sex: FProcedure: XR ABDOMEN 2 VIEWS FLAT / UPRIGHTOrder Date: 07/19/2020 8:40 AMOrdering Provider: REHAN COTTON .Clinical Indication: [id number]: Abdominal painComparison: July 05, 2020Findings:Postoperative change consisting [...] AMDictated By: FARZAD DEWITT.Date: 07/19/2020 09:17[facility] CHEM [id number] 09:10:00 Test Item Value Reference Range Interpretation [...] [facility] CBC WITH AUTO [id number] 09:09:00 Test Item Value Reference Range Interpretation [...] [facility] URINALYSIS WITHOUT [id number] 09:08:00 Test Item Value Reference Range Interpretation Comments Color (test code = UCOLR) Yellow Lt. Yellow A Clarity (test code = UCLAR) Clear Glucose (test code = UGLUC) Negative Negative N Bilirubin (test code = UBILI) Negative Negative N Ketones (test code = UKET) Negative Negative N Specific [place] (test code = USPGR) >=1.030 1.005-1.030 A Blood (test code = UBLD) Negative Negative N PH (test code = UPH) 6.0 4.5-8.0 A Protein (test code = UPROT) Negative Negative N Urobilinogen (test code = U UROB) 0.2 >0.2 N Nitrite (test code = UNITR) Negative Negative N Leukocyte Esterase (test code = Negative Negative N ULEUK) [facility] HealthcarekinCULTURE, [id number] 08:00:00Specimen: Urine SpecimensCollected: 07/05/2020 03:00 Status: Final Last Updated: 07/07/2020 08:00 CULTURE (Final) (Final) No Growth [facility] 48 [facility]kinXR [facility]BD[facility] 1 VIEW (KUB)2020-07-05 04:07:04 [facility]Name: LAUREN BETH : [id number] Sex: FPROCEDURE INFORMATION:Exam: XR Abdomen, 1 ViewExam [...] CDT.Dictated By: OSKAR CRANEte: 07/05/2020 04:06[facility] , [id number] 03:54:00 Test Item Value Reference Range Interpretation Comments (Urine) (test code = Negative PREGU) [facility]M [id number] 03:53:00 Test Item Value Reference Range Interpretation [...] [facility] CBC WITH AUTO [id number] 03:51:00 Test Item Value Reference Range Interpretation [...] % 0.0-0.4 [facility] HealthcarekinURINALYSIS WITH [id number] 03:33:00 Test Item Value Reference Range Interpretation Comments Color (test code = UCOLR) Yellow Clarity (test code = UCLAR) Clear Glucose (test code = UGLUC) NEGATIVE NEGATIVE N Bilirubin (test code = UBILI) Small NEGATIVE A Ketones (test code = UKET) TRACE NEGATIVE A Specific [place] (test code = USPGR) 1.020 1.005-1.030 A [...] code = UBACT) Trace None Seen,Trace N [facility]CT [facility]BDOM[facility]/PELVIS W/[id number] 16:44:35 [facility] ([facility])Name: LAUREN BETH : [id number] Sex: FProcedure: CT ABDOMEN/PELVIS W/CONTRASTOrder date: 06/07/2020 3:47 PMOrdering Provider: REHAN Farrellinical Indication: [id number]: Left flank painComparison: 06/07/20Technique: Multiple axial helical [...] PMDictated By: WILEY VELÁZQUEZDate: 06/07/2020 16:38[facility] DAVISURINALYSIS WITH [id number] 15:22:00 Test Item Value Reference Range Interpretation Comments Color (test code = UCOLR) Yellow Clarity (test code = UCLAR) Clear Glucose (test code = UGLUC) NEGATIVE NEGATIVE N Bilirubin (test code = UBILI) NEGATIVE NEGATIVE N Ketones (test code = UKET) NEGATIVE NEGATIVE N Specific [place] (test code = USPGR) 1.020 1.005-1.030 A [...] [facility] CHEM [id number] 15:10:00 Test Item Value Reference Range Interpretation [...] [facility] CBC WITH AUTO [id number] 15:08:00 Test Item Value Reference Range Interpretation [...] code = IG%) 0.5 % 0.0-0.4 H [facility] ABD/ PELVIS W/O CON (RENAL STONE)2020-06-07 14:56:05[facility] ([place])Name: LAUREN BETH : [id number] Sex: FProcedure: CT ABD/ PELVIS W/O CON (RENAL STONE)Order date: 06/07/2020 2:18 PMOrdering Provider: REHAN Farrellinical Indication: [id number]: Left flank painComparison: 05/31/20TECHNIQUE: Using a helical [...] 06/07/20202:49PMDictated By: WILEY VELÁZQUEZDate: 06/07/2020 14:49[facility] OF DAVISCT ABDOMEN/PELVIS W/O [id number] 12:27:07NPO 4 hours. Do not withhold meds hyst [facility])Name: LAUREN BETH : [id number] Sex: FProcedure: CT ABDOMEN/PELVIS W/O CONTRASTOrder Date: 05/31/2020 10:25 AMOrdering Provider: ME ANN MARIE MCBRIDEClinical Indication: [id number]: Pain radiating to right flankComparison: March 20, [...] MD 05/31/202012:20 PMDictated By: FARZAD DEWITT.Date: 05/31/2020 12:20[id number] 11:48:00 Test Item Value Reference Range Interpretation Comments Lipase (test code = LIPA) 116 U/L 73-393 [facility] LAB URINALYSIS WITHOUT [id number] 10:59:00 Test Item Value Reference Range Interpretation Comments Color (test code = UCOLR) Light yellow Lt. Yellow A Clarity (test code = UCLAR) Clear Glucose (test code = UGLUC) Negative Negative N Bilirubin (test code = UBILI) Negative Negative N Ketones (test code = UKET) Negative Negative N Specific [place] (test code = 1.025 1.005-1.030 A USPGR) [...] [facility] CBC WITH AUTO [id number] 10:58:00 Test Item Value Reference Range Interpretation [...] = IG%) 0.5 % 0.0-0.4 H [facility] LAB CHEM [id number] 10:53:00 Test Item Value Reference Range Interpretation [...] code = CREA) 0.5 mg/dl 0.6-1.3 L [facility]BD[facility] 1 VIEW (KUB)2020-04-25 21:02:16 [facility])Name: LAUREN BETH : [id number] Sex: FPROCEDURE INFORMATION:Exam: XR Abdomen, 1 ViewExam [...] PM CDT. Dictated By: TEJAS RODRIGUEZDate: 04/25/2020 21:02[facility] OF DAVISURINALYSIS WITH [id number] 18:57:00 Test Item Value Reference Range Interpretation Comments Color (test code = UCOLR) Yellow Lt. Yellow A Clarity (test code = UCLAR) Clear Glucose (test code = UGLUC) Negative Negative N Bilirubin (test code = UBILI) Negative Negative N Ketones (test code = UKET) Negative Negative N Specific [place] (test code = 1.020 1.005-1.030 A USPGR) [...] [facility] CBC WITH AUTO [id number] 18:55:00 Test Item Value Reference Range Interpretation [...] of Platel et clumping was entered by [id number] on 04/25/2020 18:5 5 [facility] LAB CHEM [id number] 18:17:00 Test Item Value Reference Range Interpretation [...] mg/dl 0.6-1.3 L [facility] CenterCULTGULF COAST [facility], ANAEROBE [id number] 15:20:00FIRST DRAW = 1 aerobic and 1 anerobic CultureSpecimen: BloodCollected: 03/20/2020 18:30 Status: Final Last Updated: 03/26/2020 15:19 (1) FIRST DRAW = 1 aerobic and 1 anerobic Culture CULTURE (Final) (Final) No [facility] [id number] 15:20:00FIRST DRAW = 1 aerobic and 1 anerobic CultureSpecimen: BloodCollected: 03/20/2020 18:30 Status: Final Last Updated: 03/26/2020 15:19 (1) FIRST DRAW = 1 aerobic and 1 anerobic Culture CULTURE (Final) (Final) No Growth After [address] [facility] CenterkinCT ABDOMEN/PELVIS W/[id number] 21:46:442 weeks s/p adhesolysis. Vomiting/pain/fever. Please do CT with PO and IV contrastProcedures: CT ABDOMEN/PELVIS W/CONTRASTExam Date: 03/20/2020 6:04 PMOrdering Physician: REHAN COTTONClinical Indication: [id number]: Abdominal painComparison: CT abdomen/pelvis, 02/25/20TECHNIQUE: Spiral multislice [...] 9:40 PMDictated By: ELMER PHAMDate:03/20/2020 21:40[facility] DAVISHEPATIC FUNCTION PANEL (LIVER)2020-03-20 19:24:00 Test Item Value [...] mg/dl 0.0-1.1 IBIL) [facility] CenterLIPASE2020-09-20 19:24:00 Test Item Value Reference Range Interpretation Comments Lipase (test code = LIPA) 69 U/L 73-393 L [facility] CenterMAGNESIUM2020-09-20 19:24:00 Test Item Value Reference Range Interpretation Comments Magnesium (test code = MG) 2.0 mg/dl 1.6-2.6 [facility] LAB CHEM [id number] 18:43:00 Test Item Value Reference Range Interpretation [...] [facility] LAB LACTIC [id number] 18:42:00 Test Item Value Reference Range Interpretation Comments LACTATE (test code = 2.50 mmol/l 0.90-1.70 HH R&RB tai hassan rn LAC) @1842 [facility] LAB CBC WITH AUTO [id number] 18:41:00 Test Item Value Reference Range Interpretation [...] (test code = IG%) 0.4 % 0.0-0.4 [facility]-LufkinSP PERC PLMNT MIDLINE NO PORT > [...] secured to the skin in the usual fashion.[employer] Operator images were recorded and stored in the [facility] fordocumentation. The patient tolerated the procedure well and there were noimmediate complications.Impression:1. Successful upper extremity vascular access.This final report was electronically signed by Dr Farzad Dewitt MD 03/15/20201:14 PMDictated By: FARZAD DEWITT.Date: 03/15/2020 13:14[facility] DAVISCORONAVIRUS 2019 (IN HOUSE)2020-03-13 21:03:00 Test Item Value Reference Range Interpretation Comments FT (test code Negative Negative N The BioGX SARS -CoV-2 = COVID) (qualifier value) Reagents f or BD MAX System, the Bio Fire Covid-19, and t he Cepheid Covid-1 9 is for in vitro us e under FDA Emergency U se Authorization o nly. Indeterminate r esults recommend recol lection of specimen. [facility]kinXR ABD SERIES W/PA [id number] 17:33:07 Procedure: XR ABD SERIES W/PA CXROrder [...] PMDictated By: GLORY BENITEZKDate: 03/13/2020 17:26[facility] DAVISSTAT LAB CBC WITH AUTO [id number] 17:23:00 Test Item Value Reference Range Interpretation [...] entered by [id number] on 03/13/2020 17:23 [facility] CenterLIPASE2020-09-13 17:23:00 Test Item Value Reference Range Interpretation Comments Lipase (test code = LIPA) 61 U/L 73-393 L [facility] CenterHEPATIC FUNCTION PANEL (LIVER)2020-03-13 17:23:00 Test Item Value [...] (test code = 0.4 mg/dl 0.0-1.1 IBIL) [facility]kinURINALYSIS WITH [id number] 16:54:00 Test Item Value Reference Range Interpretation Comments Color (test code = UCOLR) Yellow Lt. Yellow A Clarity (test code = UCLAR) Clear Glucose (test code = UGLUC) Negative Negative N Bilirubin (test code = UBILI) Negative Negative N Ketones (test code = UKET) Negative Negative N Specific [place] (test code = >=1.030 1.005-1.030 A USPGR) [...] [facility] CHEM [id number] 16:37:00 Test Item Value Reference Range Interpretation [...] code = CREA) 0.4 mg/dl 0.6-1.[address] [facility] PERC PLMNT MIDLINE NO PORT > 5 [...] procedure well and there were no immediate complications. Images were permanently stored on a PACS storage system and also to document thepatency of the vessel.Impression:1. Successful upper extremity vascular access.This final report was electronically signed by Dr Silver Benitez MD 03/02/202012:17 PMDictated By: GLORY BENITEZKDate: 03/02/2020 12:17[facility] 2019 (IN HOUSE)2020-03-01 18:48:00 Test Item [...] r esults recommend recol lection of specimen. [facility]-LufkinPT AND [id number] 11:51:00 Test Item Value Reference Range Interpretation Comments Protime (test code 9.8 seconds 9.5-12.1 = PT) INR (test code = 0.9 0.9-1.1 INR results are intended INR) ONLY to monitor Oral Anticoagulant t herapy in stablized patie nts. The INR Therapeutic Range is 2.0 - 3.0 Patie nts with a mechanical he art, the INR Range is 2. 5 - 3.5 [facility]-[id number] 11:51:00 Test Item Value Reference Range Interpretation Comments aPTT (test code = PTT) 27.4 seconds 23.9-30.7 [facility]-fkinCB (HEMOGRAM ONLY)2020-03-01 11:44:00 Test Item Value Reference [...] WILL BE NOTED ON THE RE PORT. [facility]-OlamidefkinCULTURE, [id number] 08:08:00Specimen: Urine RandomCollected: 02/25/2020 11:27 Status: Final Last Updated: 02/27/2020 08:08 CULTURE (Final) (Final) No Growth After 48 HoursC[facility] HospitalWoodbury [id number] 05:38:00 Test Item Value Reference Range Interpretation [...] 0.5-1.3 code = CREA) EGFR if >60 Afghan (test code mL/min/1.73m\\ = EGFRAA) S\\2 EGFR if Non- >60 Estimate d Glomerular Afghan (test code mL/min/1.73m\\ Filtrat ion Rate (eGFR) [...] and management of c hronic kidney failure. [facility] (Ultra Sensitive)2020-02-26 05:38:00 Test Item Value Reference Range Interpretation Comments TSH (test code = TSH) 0.04 mIU/L 0.35-3.74 L [facility] WITH AUTO [id number] 05:18:00 Test Item Value Reference Range Interpretation [...] 0.5 % 0.0-0.4 H IG%) CBC AUTO diffStoughton Hospital-LufkinCORONAVIRUS 2018 (IN HOUSE)2020-02-25 14:06:00 Test Item [...] r esults recommend recol lection of specimen. [facility]-LufkinURINALYSIS WITH [id number] 12:56:00 Test Item Value Reference Range Interpretation Comments Color (test code = UCOLR) Yellow Lt. Yellow A Clarity (test code = UCLAR) Slightly Cloudy Glucose (test code = UGLUC) Negative Negative N Bilirubin (test code = UBILI) Negative Negative N Ketones (test code = UKET) Negative Negative N Specific [place] (test code = >=1.030 1.005-1.030 A USPGR) [...] None Seen,Trace N [facility] CenterLIPASE2020-08-27 12:52:00 Test Item Value Reference Range Interpretation Comments Lipase (test code = LIPA) 90 U/L 73-393 [facility] CenterHEPATIC FUNCTION PANEL (LIVER)2020-02-25 12:52:00 Test Item Value [...] (test code = 0.3 mg/dl 0.0-1.1 IBIL) [facility]-WoodburyCT ABDOMEN/PELVIS W/[id number] 12:42:41NPO 4 hours. Do not withhold medsProcedure: [...] PMDictated By: WILEY VELÁZQUEZDate: 02/25/2020 12:36[facility] CHEM 2020-02-25 12:07:00 Test [...] [facility] CBC WITH AUTO [id number] 12:05:00 Test Item Value Reference Range Interpretation [...] [facility] CBC WITH AUTO [id number] 03:15:00 Test Item Value Reference Range Interpretation [...] [facility] LAB CHEM [id number] 02:55:00 Test Item Value Reference Range Interpretation [...] code = CREA) 0.5 mg/dl 0.6-1.3 L [facility] ABDOMEN 1 VIEW (KUB)2020-02-25 02:45:30 PROCEDURE INFORMATION:Exam: [...] By: JORGE LUIS WHITEDate: 02/25/2020 02:45[facility] , URINE 2020-02-25 01:12:00 Test Item Value Reference Range Interpretation Comments (Urine) (test code = Negative PREGU) [facility] URINALYSIS WITHOUT [id number] 01:11:00 Test Item Value Reference Range Interpretation Comments Color (test code = UCOLR) Yellow Lt. Yellow A Clarity (test code = UCLAR) Clear Glucose (test code = UGLUC) Negative Negative N Bilirubin (test code = UBILI) Negative Negative N Ketones (test code = UKET) Negative Negative N Specific [place] (test code = USPGR) >=1.030 1.005-1.030 A Blood (test code = UBLD) Negative Negative N PH (test code = UPH) 5.5 4.5-8.0 A Protein (test code = UPROT) Negative Negative N Urobilinogen (test code = U UROB) 0.2 >0.2 N Nitrite (test code = UNITR) Negative Negative N Leukocyte Esterase (test code = Negative Negative N ULEUK) [facility] ABDOM[facility] 1 VIEW (KUB)2020-02-10 06:46:05 Procedure: XR ABDOMEN 1 VIEW (KUB)Order date: 02/10/2020 4:01 AMOrdering Provider: JUAN Galiciainical Indication: Abdominal painComparison: NoneFindings:There is no small or large bowel distention.There is no pneumoperitoneum.There are no suspicious calcifications.There is no skeletal abnormality.Impression:1. Negative single view abdomen.This final report was electronically signed by Dr Wiley Velázquez MD 02/10/20206:39 AMDictated By: WILEY VELÁZQUEZDate: 02/10/2020 06:39[facility] RENAL & BLADDER (KIDNEYS)2020-02-10 05:31:33PROCEDURE INFORMATION:Exam: US [...] AM CDT.Dictated By: JORGE LUIS WHITEDate: 02/10/2020 05:31[facility] OF DAVISURINALYSIS WITH [id number] 05:10:00 Test Item Value Reference Range Interpretation Comments Color (test code = UCOLR) Yellow Lt. Yellow A Clarity (test code = UCLAR) Clear Glucose (test code = UGLUC) >=1000 Negative A Bilirubin (test code = UBILI) Negative Negative N Ketones (test code = UKET) Negative Negative N Specific [place] (test code = 1.015 1.005-1.030 A USPGR) [...] = UBACT) None Seen None Seen,Trace N [facility] HospitalFewcud-[id number] 04:42:00 Test Item Value Reference Range Interpretation Comments Lipase (test code = LIPA) 91 U/L 73-393 [facility] CenterHEP[facility] FUNCTION PANEL (LIVER)2020-02-10 04:42:00 Test Item Value [...] [facility] LAB CHEM [id number] 04:27:00 Test Item Value Reference Range Interpretation [...] [facility] , [id number] 04:24:00 Test Item Value Reference Range Interpretation Comments (Urine) (test code = Negative PREGU) [facility] LAB CBC WITH AUTO [id number] 04:22:00 Test Item Value Reference Range Interpretation [...] code = IG%) 0.5 % 0.0-0.4 H [facility]-LukinCT L SPINE W/O [id number] 12:46:24 Procedure: CT L SPINE W/O CONTRASTOrder date: 01/25/2020 11:46 AMOrdering Provider: DONALD Healyinical Indication: [id number]: Low back painComparison: NoneTechnique: Using a multislice [...] MD 01/25/202012:39 PMDictated By: WILEY VELÁZQUEZDate: 01/25/2020 12:39[facility]ENTERHEPATIC FUNCTION PANEL (LIVER)2019-12-09 05:49:00 Test [...] (test code = 0.3 mg/dl 0.0-1.1 IBIL) [address]-[id number] 05:49:00 Test Item Value Reference Range Interpretation Comments Lipase (test code = LIPA) 105 U/L 73-[address] LAB CHEM [id number] 05:06:00 Test Item Value Reference Range Interpretation [...] = CREA) 0.5 mg/dl 0.6-1.[address] LAB CBC WITH AUTO [id number] 05:04:00 Test Item Value Reference Range Interpretation [...] (test code = IG%) 0.4 % 0.0-0.[address]-[id number] 02:23:00 Test Item Value Reference Range Interpretation [...] ( 4 - SerumAlbumin)] EGFR if >60 Afghan (test code mL/min/1.73m\\ = EGFRAA) S\\2 EGFR if Non- >60 Estimate d Glomerular Afghan (test code mL/min/1.73m\\ Filtrat ion Rate (eGFR) [...] and management of c hronic kidney failure. [facility]-LufkinURINALYSIS WITH [id number] 02:11:00 Test Item Value Reference Range Interpretation Comments Color (test code = UCOLR) Yellow Lt. Yellow A Clarity (test code = UCLAR) Clear Glucose (test code = UGLUC) Negative Negative N Bilirubin (test code = UBILI) Negative Negative N Ketones (test code = UKET) Trace Negative A Specific [place] (test code = USPGR) >=1.030 1.005-1.030 A [...] [facility] CBC WITH AUTO [id number] 02:03:00 Test Item Value Reference Range Interpretation [...] (test code = IG%) 0.4 % 0.0-0.4 [facility] CenterkinCT ABDOMEN/PELVIS W/[id number] 22:43:00NPO 4 hours. Do not withhold meds [...] 201910:42 PM CDT.Dictated By: JOSUÉ MCGHEEDate: 10/07/2019 22:42[facility] 2019-10-[facility] 22:05:00 Test Item Value Reference [...] 0.5-1.3 code = CREA) EGFR if >60 Afghan (test code mL/min/1.73m\\ = EGFRAA) S\\2 EGFR if Non- >60 Estimate d Glomerular Afghan (test code mL/min/1.73m\\ Filtrat ion Rate (eGFR) [...] and management of c hronic kidney failure. [facility]-LufkinAMYLASE, [id number] 22:05:00 Test Item Value Reference Range Interpretation Comments Amylase (test code = AMYL) 43 U/L 25-115 [facility] HospitalCjqasv-[id number] 22:05:00 Test Item Value Reference Range Interpretation Comments Lipase (test code = LIPA) 95 U/L 73-393 [facility]-LufkinURINALYSIS WITH [id number] 21:49:00 Test Item Value Reference Range Interpretation Comments Color (test code = UCOLR) Yellow Lt. Yellow A Clarity (test code = UCLAR) Clear Glucose (test code = UGLUC) Negative Negative N Bilirubin (test code = UBILI) Negative Negative N Ketones (test code = UKET) 15 Negative A Specific [place] (test code = USPGR) >=1.030 1.005-1.030 A [...] [facility] CBC WITH AUTO [id number] 21:45:00 Test Item Value Reference Range Interpretation [...] 0.0-0.4 [facility] , [id number] 21:36:00 Test Item Value Reference Range Interpretation Comments (Urine) (test code = Negative PREGU) [facility] CenterkinCT ABDOMEN/PELVIS W/O [id number] 03:56:36 PROCEDURE INFORMATION:Exam: CT Abdomen And Pelvis [...] AM CDT.Dictated By: AMY ORDOÑEZDate: 09/20/2019 03:56 [id number] 02:07:00 Test Item Value Reference Range Interpretation [...] 4 - SerumAlbu min)] EGFR if >60 Afghan (test code mL/min/1.73m\\ = EGFRAA) S\\2 EGFR if Non- >60 Estimate d Glomerular Afghan (test code mL/min/1.73m\\ Filtrat ion Rate (eGFR) [...] and management of c hronic kidney failure. [facility]kinXR ABDOMEN 2 VIEWS FLAT / [id number] 02:01:15PROCEDURE INFORMATION:Exam: XR Abdomen, 2 ViewsExam date [...] CDT.Dictated By: AMY ORDOÑEZDate: 09/20/2019 02:01[facility]ISURINALYSIS WITH MICROSCOPIC 2019-09-20 01:56:00 Test Item Value Reference Range Interpretation Comments Color (test code = UCOLR) Yellow Lt. Yellow A Clarity (test code = UCLAR) Clear Glucose (test code = UGLUC) >=1000 Negative A Bilirubin (test code = UBILI) Negative Negative N Ketones (test code = UKET) Trace Negative A Specific [place] (test code = USPGR) >=1.030 1.005-1.030 A [...] [facility] CBC WITH AUTO [id number] 01:38:00 Test Item Value Reference Range Interpretation [...] code = IG%) 0.5 % 0.0-0.4 H [facility] ABDOMEN/PELVIS W/[id number] 04:23:30 PROCEDURE INFORMATION:Exam: CT Abdomen And Pelvis [...] CDT.Dictated By: SETH MEDINADate: 08/17/2019 04:23[facility] OF [id number] 03:34:00 Test Item Value Reference Range Interpretation Comments Lipase (test code = LIPA) 67 U/L 73-393 L [facility]-[id number] 03:34:00 Test Item Value Reference Range Interpretation [...] ( 4 - SerumAlbumin)] EGFR if >60 Afghan (test code mL/min/1.73m\\ = EGFRAA) S\\2 EGFR if Non- >60 Estimate d Glomerular Afghan (test code mL/min/1.73m\\ Filtrat ion Rate (eGFR) [...] and management of c hronic kidney failure. [facility] LAB CBC WITH AUTO [id number] 03:19:00 Test Item Value Reference Range Interpretation [...] code = IG%) 0.7 % 0.0-0.4 H [facility] CenterkinURINALYSIS WITH [id number] 03:10:00 Test Item Value Reference Range Interpretation Comments Color (test code = UCOLR) YELLOW Clarity (test code = UCLAR) CLEAR Glucose (test code = UGLUC) NEGATIVE NEGATIVE N Bilirubin (test code = UBILI) NEGATIVE NEGATIVE N Ketones (test code = UKET) NEGATIVE NEGATIVE N Specific [place] (test code = 1.025 1.005-1.030 A USPGR) [...] = UBACT) 1+ None Seen,Trace A [facility] LAB , [id number] 03:03:00 Test Item Value Reference Range Interpretation Comments (Urine) (test code = Negative PREGU) ONLY AVAILABLE 8A-12[facility]-LufkinED2 [id number] 20:37:00 Test Item Value Reference Range Interpretation [...] (test code = CREA) 0.6 mg/dl 0.6-1.2 [facility] [facility]-LufkinED2 [id number] 20:28:00 Test Item Value Reference Range Interpretation [...] code = MPV) 7.1 fL 8.0-11.0 A [facility]-LufkinCULTURE, [id number] 08:44:85wug0Bqxudnmk: Urine SpecimensCollected: 07/12/2019 15:00 Status: Final Last Updated: 2019 08:44 (1) err7 Culture Result (Final) (Final) Moderate Mixed Body Gabriela Isolated No Pathogens Isolated No Further Workup PerformedStoughton Hospital-LufkinFL LIMITED [id number] 17:53:41Procedures: [place] LIMITED IVPExam Date: 07/12/2019 3:21 PMOrdering Physician: REHAN Farrellinical Indication: [id number]: Flank painComparison: CT abdomen/pelvis, 05/17/19Findings: Frontal radiographs [...] PMDictated By: ELMER PHAMDate: 07/12/2019 17:47[facility] DAVISSLHMQPNCJKS4030-70-04 15:56:00 Test Item Value Reference Range Interpretation Comments Lipase (test code = LIPA) 97 U/L 73-[address]-LufkinHEPATIC FUNCTION PANEL (LIVER)2019-07-12 15:56:00 Test Item Value [...] (test code = 0.2 mg/dl 0.0-1.1 IBIL) [address]-LufkinURINALYSIS WITH [id number] 15:51:00 Test Item Value Reference Range Interpretation Comments Color (test code = UCOLR) YELLOW Clarity (test code = UCLAR) CLEAR Glucose (test code = UGLUC) NEGATIVE NEGATIVE N Bilirubin (test code = UBILI) NEGATIVE NEGATIVE N Ketones (test code = UKET) NEGATIVE NEGATIVE N Specific [place] (test code = 1.020 1.005-1.030 A USPGR) [...] code = UBACT) 4+ None Seen,Trace A [address] LAB CHEM [id number] 15:09:00 Test Item Value Reference Range Interpretation [...] (test code = CREA) 0.6 mg/dl 0.6-1.[address] LAB CBC WITH AUTO [id number] 15:08:00 Test Item Value Reference Range Interpretation [...] (test code = IG%) 0.4 % 0.0-0.[address]-[place]CT ABDOMEN/PELVIS W/[id number] 16:33:46NPO 4 hours. Do not withhold medsProcedures: CT ABDOMEN/PELVIS W/CONTRASTExam Date: 05/17/2019 1:31 PMOrdering Physician: MERLE LYNNEClinical Indication: [id number]: Abdominal painComparison: CT abdomen/pelvis, 04/09/19TECHNIQUE: Spiral multislice [...] post gastric reduction.Mesentery: Normal.RETROPERITONEUM:Aorta: Normal.Lymphadenopathy: No retroperitoneal lym phadenopathy.Masses: None.OSSEOUS: Degenerative changes of the spine; otherwise, no significant osseouslesions.OTHER: No significant abnormality of the remaining soft tissuesIMPRESSION:1. Moderate to large stool burden in the colon may represent constipation;otherwise, no significant abnormalities were present to explain the patient'sabdominal pain complaint.2. Chronic findings, as above.This final report was electronically signed by Dr Elmer Juárez MD05/17/2019 4:27 PMDictated By: ELMER PHAMDate: 05/17/2019 16:27[facility] [id number] 16:20:00 Test Item Value Reference Range Interpretation Comments Lipase (test code = LIPA) 70 U/L 73-393 L [facility] LAB CHEM [id number] 15:24:00 Test Item Value Reference Range Interpretation [...] [facility] LAB LACTIC [id number] 15:23:00 Test Item Value Reference Range Interpretation Comments LACTATE (test code = LAC) 1.39 mmol/l 0.90-1.70 [facility] LAB CBC WITH AUTO [id number] 15:21:00 Test Item Value Reference Range Interpretation [...] code = IG%) 0.5 % 0.0-0.4 H [facility]-LufkinURINALYSIS WITH [id number] 15:08:00 Test Item Value Reference Range Interpretation Comments Color (test code = UCOLR) YELLOW Clarity (test code = UCLAR) CLEAR Glucose (test code = UGLUC) NEGATIVE NEGATIVE N Bilirubin (test code = UBILI) NEGATIVE NEGATIVE N Ketones (test code = UKET) NEGATIVE NEGATIVE N Specific [place] (test code = 1.025 1.005-1.030 A USPGR) [...] code = UBACT) 2+ None Seen,Trace A [facility]buryCT ANGIO HEAD W/WO [id number] 16:28:5720 g Cathlon Above the Antecubital or higher requiredProcedure: CT ANGIO HEAD W/WO CONTRASTOrder Date: 05/12/2019 3:30 PMOrdering Provider: REHAN VANG SA NDERSClinical Indication: [id number]: HeadacheComparison: NoneTechnique: Using a helical scanner, sequential axial imaging of the brain wasobtained before and after the administration of the contrast medium. At anindependent workstation, 3-D reconstructions of the [place] wereobtained.This examwas performed according to [...] MD 05/12/20194:22 PMDictated By: FARZAD DEWITTDate: 05/12/2019 16:22[facility]CT [facility]LVIS W/[id number] 14:36:05NPO 4 hours. Do not withhold medsProcedure: CT ABDOMEN/PELVIS W/CONTRASTOrder Date: 04/09/2019 8:00 AMOrdering Provider: LIZBETH CARTERClinical Indication: R09.89: OTHER SPECIFIED SYMPTOMS AND SIGNS [...] 04/09/20192:29 PMDictated By: GLORY BENITEZKDate: 04/09/2019 14:29[facility] WITH AUTO [id number] 09:02:00 Test Item Value Reference Range Interpretation [...] code = 0.5 % 0.0-0.4 H IG%) [facility]kin[facility] WITH AUTO [id number] 09:14:00 Test Item Value Reference Range Interpretation [...] (test code = 0.4 % 0.0-0.4 IG%) [facility]-QwgabiMEW3948-26-49 09:12:00 Test Item Value Reference Range Interpretation [...] 0.5-1.3 code = CREA) EGFR if >60 Afghan (test code mL/min/1.73m\\ = EGFRAA) S\\2 EGFR if Non- >60 Estimate d Glomerular Afghan (test code mL/min/1.73m\\ Filtrat ion Rate (eGFR) [...] and management of c hronic kidney failure. [facility]-LufkinSP PERC PLMNT MIDLINE NO PORT > [...] PMDictated By: WILEY VELÁZQUEZDate: 04/07/2019 16:05[facility] OF DAVISCT ABDOMEN/PELVIS W/[id number] 22:50:40PROCEDURE INFORMATION:Exam: CT Abdomen and pelvis with [...] CDT.Dictated By: ELMER PHAMDate: 04/04/2019 22:50[facility] OF [id number] 21:22:00 Test Item Value Reference Range Interpretation Comments Lipase (test code = LIPA) 89 U/L 73-393 [facility] CenterHEP[facility] FUNCTION PANEL (LIVER)2019-04-04 21:22:00 Test Item Value [...] [facility] LAB CHEM [id number] 21:07:00 Test Item Value Reference Range Interpretation [...] [facility] URINALYSIS WITHOUT [id number] 21:05:00 Test Item Value Reference Range Interpretation Comments Color (test code = UCOLR) Yellow Lt. Yellow A Clarity (test code = UCLAR) Slightly Cloudy Glucose (test code = UGLUC) 100 Negative A Bilirubin (test code = UBILI) Negative Negative N Ketones (test code = UKET) Negative Negative N Specific [place] (test code = >=1.030 1.005-1.030 A USPGR) [...] [facility] LAB CBC WITH AUTO [id number] 21:04:00 Test Item Value Reference Range Interpretation [...] = IG%) 0.5 % 0.0-0.4 H [facility] LAB , [id number] 21:04:00 Test Item Value Reference Range Interpretation Comments (Urine) (test code = Negative PREGU) ONLY AVAILABLE [address] [place] [address]-LufkinED2 [id number] 16:05:00 Test Item Value Reference Range Interpretation Comments Sodium (test code = CANCELED mmol/l The r eleased value NA) 141 was cancele d by [id number] on 04/04/2019 16:0 5 Potassium (test code CANCELED mmol/l The released value = K) 3.9 was cancele d by [id number] on 04/04/2019 16:0 5 CO2 (test code = CANCELED mmol/l The rele ased value CO2) 23 was canceled by [id number] on 04/04/2019 16:0 5 Chloride (test code CANCELED mmol/l The r eleased value = CL) 108 was cancele d by [id number] on 04/04/2019 16:0 5 Glucose (test code = CANCELED mg/dl The r eleased value GLU) 96 was canceled by [id number] on 04/04/2019 16:0 5 Calcium (test code = CANCELED mg/dl The r eleased value CALC) 8.8 was cancele d by [id number] on 04/04/2019 16:0 5 BUN (test code = CANCELED mg/dl The relea sed value BUN) 11 was canceled by [id number] on 04/04/2019 16:0 5 Creatinine (test CANCELED mg/dl code = CREA) [facility] hospitalHIST[facility] [id number] 11:08:[address] [place] [address]Jcdke: [phone] TACG #: [id number] MedicalDirector: Seth Valdez M.D.Surgical Pathology Consultation ReportPatient Name: LAUREN BETH Case #: [id number] Med. Rec. #:[id number] [id number] Date: 03/21/2019 : 1985(Age:33) Received: 03/23/2019 [...] greatest dimension. The cystsarefilled with clearserous fluid. [employer] sections of the ovaryandpossible fallopian tube are submitted in cassettes A1-A8. /03/23/2019 Seth Valdez MD, Board Certified in Anatomic Pathology Microscopic DescriptionMicroscopic examination of the right ovary reveals fibrovascularadhesionsalong the surface of the ovary as well as along the accompanyingfallopiantube. The ovarian parenchyma contains follicular cysts, benign serouscyst,as well as numerous corpus albicans. No areas of endometriosis areseen. Billing Fee Code(s): A; 79346TakmxsvsMay[facility] Franciscan Healthcarekin- US TRANSVAGINAL W/[id number] 16:45:00 Patient Name: ADELIA BETH Unit No: [id number] EXAMS: CPT CODE: [id number] US TRANSVAGINAL W/PELVIS 89058 CLINICAL HISTORY: Right lower quadrant pain. Status [...] MD Technologist: Dipesh Miranda RDMS, RVT Probe: [id number] Trnscrbd D/ (4086) tMARTIN Orig Print D/T: S: 03/10/2019 (8213) [facility] NAME: ADELIA BETH Radiology Department [facility]YS[facility] - Hilaria Calderón [address] : 1985 AGE: 33 SEX: F [place] [address] LOC: DayanaraERS PHONE #: [phone] EXAM DATE: 03/10/2019 STATUS: REG ER FAX #: [phone] RAD NO: Page 1 Signed Report Patient Name: ADELIA BETH Unit No: [id number] EXAMS: CPT CODE: [id number] US TRANSVAGINAL W/PELVIS 96653 <Continued> [facility] NAME: ADELIA BETH Radiology Department PHYS: SUEEmma - Hilaria Calderón [address] : 1985 AGE: 33 SEX: F [place] [address] LOC: ALONRDA PHONE #: [phone] EXAM DATE: 03/10/2019 STATUS: REG ER FAX #: [phone] RAD NO: Page2 Signed Report- US TRANSVAGINAL W/[id number] 16:45:00 Patient Name: LAUREN BETH Unit No: [id number] EXAMS: CPT CODE: [id number] US TRANSVAGINAL W/PELVIS 06513 CLINICAL HISTORY: Right lower quadrant pain. Status [...] MD Technologist: Dipesh Miranda RDMS, T Probe: [id number] Trnscrbd D/ (1645) Ro Orig Print D/T: S: 03/10/2019 (1648) [facility] NAME: LAUREN BETH Radiology Department PHYS: SUE. - Hilaria Calderón [address] : 1985 AGE: 33 SEX: F [place], [place] [address] LOC: ALONDRA PHONE #: [phone] EXAM DATE: 03/10/2019 STATUS: DEP ER FAX #: [phone] RAD NO: [id number] Page 1 Signed Report Patient Name: LAUREN BETH Unit No: [id number] EXAMS: CPT CODE: [id number] US TRANSVAGINAL W/PELVIS 52081 (Continued) [facility] NAME: LAUREN BETH Radiology Department PHYS: GUTAL. - Hilaria Calderón [address] : 1985 AGE: 33 SEX: F [place], [place] [address] LOC: ALONDRA PHONE #: [phone] EXAM DATE: 03/10/2019 STATUS: [facility] ER FAX #: [phone] RAD NO: [id number] Page 2 Signed Report- US PELVIS [id number] 16:45:00 Patient Name: ADELIA BETH Unit No: [id number] EXAMS: CPT CODE: [id number] US PELVIS COMPLETE 53821 CLINICAL HISTORY: Right lower quadrant pain. Status [...] Dipesh Miranda RDMS, RVT Probe: Trnscrbd D/ (9065) Ro Orig Print D/T: S: 03/10/2019 (972) [facility] NAME: ADELIA BETH Radiology Department PHYS: Hilaria Maldonado [address] : 1985 AGE: 33 SEX: F [place], [place] [address] LOC: ALONDRA PHONE #: [phone] EXAM DATE: STATUS: REG ER FAX #: [phone] RAD NO: Page 1 Signed Report Patient Name: ADELIA BETH Unit No: [id number] EXAMS: CPT CODE: [id number] US PELVIS COMPLETE [address]3510 <Continued> [facility] NAME: ADELIA BETH Radiology Department PHYS: NIGEL - Hilaria Calderón [address] : 1985 AGE: 33 SEX: F [place], [place] [address] LOC: F.ALLI PHONE #: [phone] EXAM DATE: 03/10/2019 STATUS: REG ER FAX #: [phone] RAD NO: Page 2 Signed Report- US PELVIS [id number] 16:45:00 Patient Name: LAUREN BETH Unit No: [id number] EXAMS: CPT CODE: [id number] US PELVIS COMPLETE 85612 CLINICAL HISTORY: Right lower quadrant pain. Status [...] flow is identified in theright ovary. at 2258 Reported and signedby: Mario Guidry MD CC: Hilaria Calderón MD Technologist: Dipesh Miranda RDMS, RVT Probe: Trnscrbd D/ (0189) t.YOS Orig Print D/T: S: 03/10/2019 (1648) [facility] NAME: LAUREN BETH Radiology Department PHYS: GUTAL. - Calderón,Hilaria [address] : 1985 AGE: 33 SEX: Luis Fernando [place], [place] [address] LOC: DayanaraERS PHONE #: [phone] EXAM DATE: 03/10/2019 STATUS: DEP ER FAX #: [phone] RAD NO: [id number] Page 1 Signed Report Patient Name: LAUREN BETH Unit No: [id number] EXAMS: CPT CODE: [id number] US PELVIS COMPLETE 74680 (Continued) [facility] NAME: LAUREN BETH Radiology Department PHYS: GUTAL. - Calderón,Hilaria [address] : 1985 AGE: 33 SEX: F [place] [address] : ALONDRA PHONE #: [phone] EXAM DATE: 03/10/2019 STATUS: DEP ER FAX #: [phone] RAD NO: [id number] Page 2 Signed ReportCBC W/AUTO DIFF 2019-03-10 [...] = PLTMR) UA RFLX MICR CULT IF [id number] 16:07:00 Test Item Value Reference Range Interpretation [...] A Indication for culture: Suprapubic PainUR HCG [id number] 16:07:00 Test Item Value Reference Range Interpretation [...] culture: Suprapubic PainUA RFLX MICR CULT IF [id number] 16:04:00 Test Item Value Reference Range Interpretation [...] EPIU) Indication for culture: Suprapubic PainUR HCG [id number] 16:04:00 Test Item Value Reference Range Interpretation [...] culture: Suprapubic PainUA RFLX MICR CULT IF [id number] 15:55:00 Test Item Value Reference Range Interpretation [...] RARE-FEW Indication for culture: Suprapubic PainUR HCG [id number] 15:55:00 Test Item Value Reference Range Interpretation [...] and tested. Indication for culture: Suprapubic PainED2 [id number] 01:18:00 Test Item Value Reference Range Interpretation [...] code = MPV) 6.9 fL 8.0-11.0 [facility] URINE [id number] 00:55:00 Test Item Value Reference Range Interpretation Comments Color (test code = UCOLR) Yellow Lt. Yellow A Clarity (test code = UCLAR) Clear Glucose (test code = UGLUC) NEGATIVE NEGATIVE N Bilirubin (test code = UBILI) NEGATIVE NEGATIVE N Ketones (test code = UKET) NEGATIVE NEGATIVE N Specific [place] (test code = USPGR) 1.030 1.005-1.030 A Blood (test code = UBLD) NEGATIVE NEGATIVE N PH (test code = UPH) 6.0 4.5-8.0 A Protein (test code = UPROT) Trace NEGATIVE A Urobilinogen (test code = U UROB) 0.2 >0.2 N Nitrite (test code = UNITR) NEGATIVE NEGATIVE N Leukocyte Esterase (test code = NEGATIVE NEGATIVE N ULEUK) [place] [address] , [id number] 00:54:00 Test Item Value Reference Range Interpretation Comments (Urine) (test code = Negative PREGU) [facility] HealthcarekinLIPASE2019-08-10 13:07:00 Test Item Value Reference Range Interpretation Comments Lipase (test code = LIPA) 106 U/L 73-[address] [facility] [address] [facility]BD[facility]EN/PELVIS W/[id number] 12:24:12Procedures: ED2 CT ABDOMEN/PELVIS W/CONTRASTExam Date: 02/07/2019 10:11 AMOrdering Physician: WYATT SOTOMAYORClinical Indication: [id number]: Epigastric painComparison: CT abdomen/pelvis, 01/27/19TECHNIQUE: Spiral multislice [...] 12:17 PMDictated By: ELMER PHAMDate: 02/07/2019 12:17[facility] OF [address]2019-08-10 10:48:00 Test Item Value Reference Range [...] (test code = TP) 7.6 gm/dl 6.4-8.1 [facility]ED2 URINE [id number] 10:45:00 Test Item Value Reference Range Interpretation Comments Color (test code = UCOLR) Yellow Lt. Yellow A Clarity (test code = UCLAR) Sl Cloudy Glucose (test code = UGLUC) NEGATIVE NEGATIVE N Bilirubin (test code = UBILI) NEGATIVE NEGATIVE N Ketones (test code = UKET) NEGATIVE NEGATIVE N Specific [place] (test code = 1.025 1.005-1.030 A USPGR) Blood (test code = UBLD) NEGATIVE NEGATIVE N PH (test code = UPH) 5.5 4.5-8.0 A Protein (test code = UPROT) NEGATIVE NEGATIVE N Urobilinogen (test code = U UROB) 0.2 >0.2 N Nitrite (test code = UNITR) NEGATIVE NEGATIVE N Leukocyte Esterase (test code = NEGATIVE NEGATIVE N ULEUK) [place] [address] , [id number] 10:45:00 Test Item Value Reference Range Interpretation Comments (Urine) (test code = Negative PREGU) [facility] HealthcarekinED2 [id number] 10:44:00 Test Item Value Reference Range Interpretation [...] code = MPV) 6.8 fL 8.0-11.0 A [facility]CT ABDOMEN/PELVIS W/[id number] 12:29:19s/p hysterectomy; rlq painProcedure: CT ABDOMEN/PELVIS W/CONTRASTOrder Date: 01/27/2019 10:57 AMOrdering Provider: DR LEXUS CASTREJON ACOSTAClinical Indication: [id number]: Abdominal painComparison: September 30, 2018TECHNIQUE:The abdo men [...] PMDictated By: Maggie BENITEZte: 01/27/2019 12:23[facility] DAVISURINALYSIS WITH [id number] 12:10:00 Test Item Value Reference Range Interpretation Comments Color (test code = UCOLR) YELLOW Clarity (test code = UCLAR) CLEAR Glucose (test code = UGLUC) NEGATIVE NEGATIVE N Bilirubin (test code = UBILI) NEGATIVE NEGATIVE N Ketones (test code = UKET) NEGATIVE NEGATIVE N Specific [place] (test code = USPGR) <=1.005 1.005-1.030 A [...] code = UBACT) Trace None Seen,Trace N [facility]Hmaofw-RngrtwANDYMG3813-18-30 11:49:00 Test Item Value Reference Range Interpretation Comments Lipase (test code = LIPA) 91 U/L 73-393 [facility]-fkinAMYLASE, [id number] 11:49:00 Test Item Value Reference Range Interpretation Comments Amylase (test code = AMYL) 45 U/L 25-115 [facility] CenterkinSTAT LAB CHEM [id number] 11:25:00 Test Item Value Reference Range Interpretation [...] [facility] LAB CBC WITH AUTO [id number] 11:23:00 Test Item Value Reference Range Interpretation [...] code = IG%) 0.6 % 0.0-0.4 H [facility] PELVIS [id number] 07:55:25h/o complex right ovarian cystsProcedure: Pelvic ultrasound.CLINICAL [...] Velázquez MD 12/07/20187:49 AMDictated By:WILEY VELÁZQUEZDate: 12/07/2018 07:49[facility] OF [id number] 03:11:00 Test Item Value Reference Range Interpretation Comments Lipase (test code = LIPA) 136 U/L 73-393 [facility] CenterHEP[facility] FUNCTION PANEL (LIVER)2018-12-07 03:10:00 Test Item Value [...] [facility] LAB CHEM [id number] 02:41:00 Test Item Value Reference Range Interpretation [...] code = CREA) 0.5 mg/dl 0.6-1.3 L [facility] HealthcarekinSGRE[facility] CBC WITH AUTO [id number] 02:39:00 Test Item Value Reference Range Interpretation [...] 0.0-0.4 H [facility] HealthcarekinURINALYSIS WITH [id number] 02:37:00 Test Item Value Reference Range Interpretation Comments Color (test code = UCOLR) YELLOW Clarity (test code = UCLAR) CLEAR Glucose (test code = UGLUC) 500 NEGATIVE A Bilirubin (test code = UBILI) NEGATIVE NEGATIVE N Ketones (test code = UKET) TRACE NEGATIVE A Specific [place] (test code = USPGR) >=1.030 1.005-1.030 A [...] code = UBACT) 2+ None Seen,Trace A [facility]-OlamidefstefanieCULTURE, [id number] 07:39:00CULTURE RIGHT ABDOMEN WOUND CARE DEPTSpecimen: AbdomenCollected: [...] Sc (+/-) Negative - ICR (+/-) Negative -[facility]-LufkinXR CHEST AP/PA 1 [id number] 05:15:17Procedure: XR CHEST AP/PA 1 VIEWOrder Date: 09/30/2018 8:28 PMOrdering Provider: DIMAS Haskinsinical Indication: [id number]: Acute chest painComparison: May 13, 2017Findings:Cardiac size is magnified by technique.Pulmonary vasculature is normal.Mediastinal contour is normal.Aortic contour is normal.There is no consolidation or effusion.There is no evidence of active tuberculosis.There is no mass or pneumothorax.There is no skeletal abnormality.Impression: Negative AP portable chest x-ray.This final report was electronically signed by Dr Farzad Dewitt MD 10/01/20185:08 AMDictated By: FARZAD DEWITTDate: 10/01/2018 05:08 [facility]LV[facility] W/O [id number] 00:42:26NPO 4 hours. Do not withhold medsEXAM:CT [...] CDT.Dictated By: REHAN AZARDate: 10/01/2018 00:42[facility] [id number] 21:37:00 Test Item Value Reference Range Interpretation Comments Lipase (test code = LIPA) 82 U/L 73-393 [facility] CenterHEP[facility] FUNCTION PANEL (LIVER)2018-09-30 21:37:00 Test Item Value [...] [facility] LAB CHEM [id number] 21:10:00 Test Item Value Reference Range Interpretation [...] [facility] LAB CBC WITH AUTO [id number] 21:09:00 Test Item Value Reference Range Interpretation [...] (test code = IG%) 0.3 % 0.0-0.4 [facility] W/WO TUBE,JVZ-[id number] 12:44:00 RUN DATE: 09/04/18 [facility] PAGE 1 RUN TIME: 1454 Specimen Inquiry RUN USER: INTERFACE --------- ---PATIENT: LAUREN BETH [facility] #: [id number] [facility] #: [id number] AGE/SX: 33/F ROOM: [facility] RE09/02/18REG DR: Elmer Flores : 87 BED: A DIS: 09/03/18 STATUS: DIS [place]y TLOC: SPEC #: [id number] RECD: 09/02/18 STATUS: SOUJanel REQ #: [id number] MELISSA: 09/02/18- SUBM DR: Elmer Flores IIIENTERED: 09/03/18-819 SP TYPE: MUSA PELAYO DR: ORDERED: LEVEL IV CODES: [id number] - OVARY, NOS PROCEDURES: LEVEL IV (Incomplete) TISSUES: OVARY, NOS - RIGHT OVARIAN CYST CLINICAL HISTORY 33 year old,acute pelvic pain (wpd) FINAL DIAGNOSIS Right ovarian cyst, excision: - benign simple cyst of ovary Tissue code 1 CPT code(s): 767[address] [facility] 09/04/18 GROSS DESCRIPTION ANATOMIC SOURCE OF TISSUE (per Requisition): Right ovarian cyst The specimen is received in a formalin-filled container, labeled with thepatient's name and designated "right ovarian cyst". The specimen consists of a 4.0 x 2.0 x 1.5 cm disrupted unilocular cystic structure. The outer surface is pink-white, hyperemic and smooth. The cyst lining is lr-pink and trabeculated. There are no identifiable excrescences. The cut surfaces of the cyst wall displays a thin rim of ovarian stroma with multiple yellow-orange, centrally hemorrhagic corpora lutea. [employer] sections are submitted as A and B. [...] NORMAL NORMAL code = PLTMR) CHEMISTRY 7 [id number] 14:15:00 Test Item Value Reference Range Interpretation [...] CA) 9.2 mg/dL 8.4-10.2 N CBC W/AUTO [id number] 13:42:00 Test Item Value Reference Range Interpretation [...] NORMAL NORMAL code = PLTMR) US INTRAVAGINAL [id number] 12:35:09Procedure: Pelvic ultrasound.CLINICAL INDICATION: Pelvic pain. Status [...] MD 09/01/201812:28 PMDictated By: WILEY VELÁZQUEZDate: 09/01/2018 12:28[facility] LAB CBC WITH AUTO [id number] 11:31:00 Test Item Value Reference Range Interpretation [...] RS88 71 on 09/01/2018 11:31 ONLY AVAILABLE 8A[facility]kinCT ABDOMEN/PELVIS W/O [id number] 11:11:01MLP CProcedure: CT ABDOMEN/PELVIS W/O CONTRASTOrder Date: 09/01/2018 9:28 AMOrdering Provider: CHIN LORENZANAClinical Indication: [id number]: Abdominal pain. Left lower quadrant painComparison: 12/24/2017TECHNIQUE:CT [...] DETECTION OF FOCALLESIONS AND VASCULAR PATHOLOGY.LOWER THORAX: N ormal.HEPATOBILIARY: The gallbladder is surgically absent. No focal hepatic lesion ispresent.SPLEEN:No splenomegaly.PANCREAS: No focal masses or ductal dilatation.ADRENALS: [...] Silver Benitez MD 09/01/201811:04 AMDictated By: GLORY EBNITEZKDate: 09/01/2018 11:04[facility] LAB CHEM [id number] 10:26:00 Test Item Value Reference Range Interpretation [...] CREA) 0.4 mg/dl 0.6-1.3 L ONLY AVAILABLE [address] [place] [address] LAB URINALYSIS WITHOUT [id number] 09:59:00 Test Item Value Reference Range Interpretation Comments Color (test code = UCOLR) Yellow Lt. Yellow A Clarity (test code = UCLAR) Clear Glucose (test code = UGLUC) NEGATIVE Negative A Bilirubin (test code = UBILI) NEGATIVE Negative A Ketones (test code = UKET) NEGATIVE Negative A Specific [place] (test code = USPGR) 1.015 1.005-1.030 A Blood (test code = UBLD) NEGATIVE Negative A PH (test code = UPH) 7.0 4.5-8.0 A Protein (test code = UPROT) NEGATIVE Negative A Urobilinogen (test code = U UROB) 0.2 >0.2 N Nitrite (test code = UNITR) NEGATIVE Negative A Leukocyte Esterase (test code = NEGATIVE Negative A ULEUK) ONLY AVAILABLE [address] [place] [address] INTRAVAG[place]VIS 2018-05-13 13:26:23Procedure: Pelvic ultrasound.CLINICAL INDICATION: [...] PMDictated By: WILEY VELÁZQUEZDate: 05/13/2018 13:20[facility] LAB CBC WITH AUTO [id number] 12:22:00 Test Item Value Reference Range Interpretation [...] [facility] CBC WITH AUTO [id number] 11:54:00 Test Item Value Reference Range Interpretation [...] 0.5 % 0.0-0.4 H IG%) ONLY AVAILABLE [address] [place] [address] LAB URINALYSIS WITHOUT [id number] 11:25:00 Test Item Value Reference Range Interpretation Comments Color (test code = UCOLR) Yellow Lt. Yellow A Clarity (test code = UCLAR) Clear Glucose (test code = UGLUC) NEGATIVE Negative A Bilirubin (test code = UBILI) NEGATIVE Negative A Ketones (test code = UKET) NEGATIVE Negative A Specific Kat[place] (test code = USPGR) 1.020 1.005-1.030 A Blood (test code = UBLD) NEGATIVE Negative A PH (test code = UPH) 7.0 4.5-8.0 A Protein (test code = UPROT) NEGATIVE Negative A Urobilinogen (test code = U UROB) 0.2 >0.2 N Nitrite (test code = UNITR) NEGATIVE Negative A Leukocyte Esterase (test code = NEGATIVE Negative A ULEUK) ONLY AVAILABLE [address] [place] [address] LAB , URINE 2018-05-13 11:25:00 Test Item Value Reference Range Interpretation Comments (Urine) (test code = Negative PREGU) ONLY AVAILABLE [address] [place] [address] LAB CHEM [id number] 11:23:00 Test Item Value Reference Range Interpretation [...] CREA) 0.5 mg/dl 0.6-1.3 L ONLY AVAILABLE 8[facility] 2017-12-24 12:50:53Procedure: Pelvic ultrasound.CLINICAL INDICATION: [...] PMDictated By: WILEY VELÁZQUEZDate: 12/24/2017 12:50[facility] WITH [id number] 10:22:00 Test Item Value Reference Range Interpretation Comments Color (test code = UCOLR) Yellow Clarity (test code = UCLAR) Clear Glucose (test code = UGLUC) NEGATIVE NEGATIVE N Bilirubin (test code = UBILI) NEGATIVE NEGATIVE N Ketones (test code = UKET) NEGATIVE NEGATIVE N Specific [place] (test code = USPGR) 1.025 1.005-1.030 A [...] code = UBACT) Trace None Seen,Trace N [facility]kin[facility]IP[facility], [id number] 10:05:00 Test Item Value Reference Range Interpretation Comments Lipase (test code = LIPA) 40 U/L 8-223 [facility]-[id number] 10:05:00 Test Item Value Reference Range Interpretation [...] ( 4 - SerumAlbumin)] EGFR if >60 Afghan (test code mL/min/1.73m\\ = EGFRAA) S\\2 EGFR if Non- >60 Estimate d Glomerular Afghan (test code mL/min/1.73m\\ Filtrat ion Rate (eGFR) [...] and management of c hronic kidney failure. [facility]/ PELVIS W/O CON (RENAL STONE)2017-12-24 [...] MD 12/24/20179:32 AMDictated By: WILEY VELÁZQUEZDate: 12/24/2017 09:38[facility] WITH AUTO DIFF 2017-12-24 09:26:00 Test Item [...] = 0.6 % 0.0-0.4 H IG%) AUTO [facility]/ PELVIS W/O CON (RENAL [...] 3:19 AM CDT.Dictated By: MARVIN DOBBSDate: 06/21/2017 03:20[facility] WITH [id number] 03:20:00 Test Item Value Reference Range Interpretation Comments Color (test code = UCOLR) YELLOW Clarity (test code = UCLAR) CLEAR Glucose (test code = UGLUC) NEGATIVE NEGATIVE N Bilirubin (test code = UBILI) NEGATIVE NEGATIVE N Ketones (test code = UKET) NEGATIVE NEGATIVE N Specific [place] (test code = 1.020 1.005-1.030 A USPGR) [...] = UBACT) None Seen None Seen,Trace N [address]-[id number] 03:07:00 Test Item Value Reference Range Interpretation [...] ( 4 - SerumAlbumin)] EGFR if >60 Afghan (test code mL/min/1.73m\\ = EGFRAA) S\\2 EGFR if Non- >60 Estimate d Glomerular Afghan (test code mL/min/1.73m\\ Filtrat ion Rate (eGFR) [...] and management of c hronic kidney failure. [address]-fkinLIPASE, [id number] 03:07:00 Test Item Value Reference Range Interpretation Comments Lipase (test code = LIPA) 61 U/L 8-[address] [place] [address]-[place]CBC WITH AUTO [id number] 03:05:00 Test Item Value Reference Range Interpretation [...] code = 0.4 % 0.0-0.4 IG%) er [address] [place] [address] CHEST 2 PA [id number] 19:56:04 Procedure: XR CHEST 2 PA LATERALExam date: 05/13/2017 3:53 PMOrdering Provider: DR ASA BLOOMClinical Indication: fatigue, Chest painComparison: March 15, 2016Findings:Cardiomediastinal silhouette is within normal limits.The lungs are clear.No pleural effusion or pneumothorax. Osseous structures are nonacute.No evidence of active tuberculosis.Impression:No acute cardiopulmonary process.This final report was electronically signed by Dr Wiley Velázquez MD 05/13/20177:49 PMDictated By: WILEY VELÁZQUEZDate: 05/13/2017 19:55[id number] 16:53:00 Test Item Value Reference Range Interpretation [...] ( 4 - SerumAlbumin)] EGFR if >60 Afghan (test code mL/min/1.73m\\ = EGFRAA) S\\2 EGFR if Non- >60 Estimate d Glomerular Afghan (test code mL/min/1.73m\\ Filtrat ion Rate (eGFR) [...] and management of c hronic kidney failure. [facility] (HEMOGRAM ONLY)2017-05-13 16:32:00 Test Item Value Reference [...] WILL BE NOTED ON THE RE PORT. [facility] WITH [id number] 18:25:00 Test Item Value Reference Range Interpretation Comments Color (test code = UCOLR) YELLOW Clarity (test code = UCLAR) CLEAR Glucose (test code = UGLUC) NEGATIVE NEGATIVE N Bilirubin (test code = UBILI) NEGATIVE NEGATIVE N Ketones (test code = UKET) NEGATIVE NEGATIVE N Specific [place] (test code = 1.025 1.005-1.030 A USPGR) [...] UR MISC) None Seen None [facility]2016-10-09 18:21:00 Test Item Value [...] (test code = 0.1 mg/dl 0.0-1.1 IBIL) [facility]-[id number] 18:21:00 Test Item Value Reference Range Interpretation [...] mg/dl 8.4-10.2 = CALC) EGFR if >60 Afghan (test code mL/min/1.73m\\ = EGFRAA) S\\2 EGFR if Non- >60 Estimate d Glomerular Afghan (test code mL/min/1.73m\\ Filtrat ion Rate (eGFR) [...] and management of c hronic kidney failure. [facility] WITH AUTO [id number] 18:04:00 Test Item Value Reference Range Interpretation [...] Auto (test code = 0 NRBC_AUTO) AUTO [facility] [place]
[2022-06-05] MEDS ORDERED: PROMETHAZINE INJ 25 MG/ML AMP ONE (08:55)
[2022-06-05] MEDS ORDERED: NA CHLORIDE 0.9% 1,000 ML ONE (08:56)
[2022-06-05] MEDS ORDERED: HYDROMORPHONE HCL 1 MG/ML INJ ONE (08:56)
[2022-06-05 09:37] LABS: Absolute Lymphocytes (CBC) 1.7 K/uL (0.7-4.9); Hematocrit 37.2 % (36.0-45.0); Lymphocytes % 26.9 % (15.3-44.8); MCV 88.4 fL (80-100); MPV 6.9 fL (7.6-11.3)
--- NOTE | 2022-06-05 09:48 | RAD REPORT ---
EXAM DESCRIPTION: CT - Stone Protocol - 06/05/2022 9:33 am CLINICAL HISTORY: Flank pain. Flank pain, kidney stone suspected COMPARISON: Stone Protocol dated 05/06/2022 TECHNIQUE: Axial images were obtained without oral or IV contrast. Lack of contrast limits solid org an and vascular assessment. The [id number] spans the entirety of the system partially obscuring uppermost abdomen and lung bases. Coronal reformatted images were obtained and reviewed. All CT scans are performed using dose optimization technique as appropriate and may include automated exposure control or mA/KV adjustment according to patient size. FINDINGS: The lower lung rhodes are clear. Postsurgical changes are present about the stomach. Imaged portions of the liver and spleen show no suspicious findings on non-contrast imaging.Cholecyst ectomy clips. The pancreas and adrenal glands are normal. No pathologic lymphadenopathy in the abdome n or pelvis. Small punctate caliceal stones are present right kidney. Tiny left-sided stone is present as well. No hydronephrosis. No bowel obstruction, free air, free fluid or abscess. Nonvisualized appendix.Moderate stool througho ut the colon. No significant bony abnormality. IMPRESSION: Punctate bilateral nephrolithiasis without hydronephrosis.
[2022-06-05 09:56] LABS: Albumin 3.3 g/dL (3.4-5.0); Bilirubin Total 0.3 mg/dL (0.2-1.0); Potassium 3.9 mmol/L (3.5-5.1); Protein, Total 6.9 g/dL (6.4-8.2)
--- NOTE | 2022-06-05 09:56 | EDPHYS ---
Physician Documentation [facility] Name: Hong Pace Age: 36 yrs Sex: Female : 1985 Arrival Date: 06/05/2022 Time: 08:23 Bed 19 Private MD: ED Physician Bao Castillo HPI: 06/05 08:48 This 36 yrs old Female presents to ER via Ambulatory with complaints of Flank Pain. snw 08:48 The patient complains of pain in the right mid back. The pain radiates to the right snw lower quadrant. Onset: The symptoms/episode began/occurred suddenly. Associated signs and symptoms: Pertinent positives: nausea, vomiting. Severity of pain: At its worst the pain was moderate severe. The patient has experienced similar episodes in the past. It is unknown whether or not the patient has recently seen a physician. 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 - Social history:: Smoking status: Patient reports the use of cigarette tobacco products, smokes one-half pack cigarettes per day. ROS: 08:45 Constitutional: Negative for fever, chills, and weight loss, Eyes: Negative for injury, snw pain, redness, and discharge, ENT: Negative for injury, pain, and discharge, Neck: Negative for injury, pain, and swelling, Cardiovascular: Negative for chest pain, palpitations, and edema, Respiratory: Negative for shortness of breath, cough, wheezing, and pleuritic chest pain, Back: Negative for injury and pain, : Negative for injury, bleeding, discharge, and swelling, MS/Extremity: Negative for injury and deformity, Skin: Negative for injury, rash, and discoloration, Neuro: Negative for headache, weakness, numbness, tingling, and seizure, Psych: Negative for depression, anxiety, suicide ideation, homicidal ideation, and hallucinations. 08:45 Abdomen/GI: Positive for abdominal pain, nausea, vomiting. Exam: 08:45 Constitutional: This is a well developed, well nourished patient who is awake, alert, snw and in no acute distress. Head/Face: Normocephalic, atraumatic. Eyes: Pupils equal round and reactive to light, extra-ocular motions intact. Lids and lashes normal. Conjunctiva and sclera are non-icteric and not injected. Cornea within normal limits. Periorbital areas with no swelling, redness, or edema. ENT: Nares patent. No nasal discharge, no septal abnormalities noted. Tympanic membranes are normal and external auditory canals are clear. Oropharynx with no redness, swelling, or masses, exudates, or evidence of obstruction, uvula midline. Mucous membranes moist. Neck: Trachea midline, no thyromegaly or masses palpated, and no cervical lymphadenopathy. Supple, full range of motion without nuchal rigidity, or vertebral point tenderness. No Meningismus. Chest/axilla: Normal chest wall appearance and motion. Nontender with no deformity. No lesions are appreciated. Cardiovascular: Regular rate and rhythm with a normal S1 and S2. No gallops, murmurs, or rubs. Normal PMI, no JVD. No pulse deficits. Respiratory: Lungs have equal breath sounds bilaterally, clear to auscultation and percussion. No rales, rhonchi or wheezes noted. No increased work of breathing, no retractions or nasal flaring. Back: No spinal tenderness. No costovertebral tenderness. Full range of motion. Skin: Warm, dry with normal turgor. Normal color with no rashes, no lesions, and no evidence of cellulitis. MS/ Extremity: Pulses equal, no cyanosis. Neurovascular intact. Full, normal range of motion. Neuro: Awake and alert, GCS 15, oriented to person, place, time, and situation. Cranial nerves II-XII grossly intact. Motor strength 5/5 in all extremities. Sensory grossly intact. Cerebellar exam normal. Normal gait. 08:45 Abdomen/GI: Inspection: abdomen appears normal, obese Bowel sounds: normal, Palpation: moderate abdominal tenderness, in the right lower quadrant. Vital Signs: 08:36 BP 100 / 53; Pulse 87; Resp 18; Temp 98.2(O); Pulse Ox 98% on R/A; Weight 108.86 kg; db Height 5 ft. 4 in. (162.56 cm); Pain 9/10; 09:38 BP 125 / 96; Pulse 74; Resp 15; Pulse Ox 98% on R/A; vg1 10:25 BP 128 / 86; Pulse 67; Resp 15; Pulse Ox 99% on R/A; vg1 08:36 Body Mass Index 41.20 (108.86 kg, 162.56 cm) db MDM: 08:34 Patient medically screened. snw 08:46 Data reviewed: vital signs, nurses notes. Data interpreted: Pulse oximetry: on room air snw is 98 %. Interpretation: normal. Counseling: I had a detailed discussion with the patient and/or guardian regarding: the historical points, exam findings, and any diagnostic results supporting the discharge/admit diagnosis, lab results, radiology results, the need for outpatient follow up. Special discussion: pt states she has had multiple kidney stones, + right lateral abd pain with restlessness, nausea. 12 08:33 Order name: CBC with Diff; Complete Time: 09:46 snw 06/05 08:33 Order name: CMP; Complete Time: 10:01 snw 06/05 08:33 Order name: Lipase; Complete Time: 10:01 snw 1206 08:47 Order name: CT Stone Protocol; Complete Time: 09:50 snw 06/05 08:33 Order name: IV Saline Lock; Complete Time: 09:29 snw 06/05 08:33 Order name: Labs collected and sent; Complete Time: 09:29 snw Administered Medications: 09:25 Drug: Phenergan (promethazine) 25 mg Route: IM; Site: left deltoid; vg1 10:25 Follow up: Response: No adverse reaction; Marked relief of symptoms vg1 09:29 Drug: Dilaudid (HYDROmorphone) 1 mg Route: IVP; Site: right antecubital; vg1 10:00 Follow up: Response: No adverse reaction; No change in condition vg1 09:37 Drug: NS 0.9% 1000 ml Route: IV; Rate: 1 bolus; Site: right antecubital; vg1 10:25 Follow up: IV Status: Completed infusion; IV Intake: 500ml vg1 10:22 Drug: fentaNYL (PF) 50 mcg Route: IM; Site: right deltoid; vg1 10:25 Follow up: Response: Medication administered at discharge. vg1 Disposition: 10:55 Co-signature as Attending Physician, Bao Castillo MD I agree with the assessment and kdr plan of care. Disposition Summary: 06/05/22 09:56 Discharge Ordered Location: Home snw Condition: Stable snw Diagnosis - Unspecified renal colic snw Followup: snw - With: Emergency Department - When: As needed - Reason: Worsening of condition Followup: snw - With: Private Physician - When: 1 - 2 days - Reason: Recheck today's complaints, Continuance of care, Re-evaluation by your physician Discharge Instructions: - Discharge Summary Sheet snw - Kidney Stones snw - Renal Colic snw - Low-Purine Eating Plan snw - Dietary Guidelines to Help Prevent Kidney Stones snw - Rehydration, Adult snw Forms: - Medication Reconciliation Form snw - Thank You Letter snw - Antibiotic Education snw - Prescription Opioid Use snw Prescriptions: - tamsulosin 0.4 mg Oral capsule - take 1 capsule by ORAL route once daily 1/2 hour following the same meal each snw day; 14 capsule; Refills: 0, Product Selection Permitted - magnesium oxide (bulk) - take 400 milligram by ORAL route once daily; 30 tablet; Refills: 0, Product snw Selection Permitted - Tramadol 50 mg Oral Tablet - take 1 tablet by ORAL route every 8 hours as needed; 12 tablet; Refills: 0, snw Product Selection Permitted Signatures: Dispatcher [employer] [facility] Bao Castillo MD MD kdr Waters, Shelly, SUPERVISOR YARD-C SUPERVISOR YARD-Csnw Staci Moreno, RN RN vg1 Marge Crawford, RN RN db
--- NOTE | 2022-06-05 09:56 | ER ---
Nurse's Notes [facility] Name: Hong Pace Age: 36 yrs Sex: Female : 1985 Arrival Date: 06/05/2022 Time: 08:23 Bed 19 Private MD: Diagnosis: Unspecified renal colic Presentation: 06/05 08:36 Chief complaint: Patient states: left flank pain with N/V started this AM at 0630. last db vomited in the parking lot. states has hx of kidney stones. Coronavirus screen: Vaccine status: Patient reports being unvaccinated. Client denies travel out of the [place] in the last 14 days. At this time, the client does not indicate any symptoms associated with coronavirus-19. Ebola Screen: Patient negative for fever greater than or equal to 101.5 degrees Fahrenheit, and additional compatible Ebola Virus Disease symptoms Patient denies exposure to infectious person. Patient denies travel to an Ebola-affected area in the 21 days before illness onset. No symptoms or risks identified at this time. Initial Sepsis Screen: Does the patient meet any 2 criteria? No. Patient's initial sepsis screen is negative. Does the patient have a suspected source of infection? No. Patient's initial sepsis screen is negative. Risk Assessment: Do you want to hurt yourself or someone else? Patient reports no desire to harm self or others. Onset of symptoms was June 05, 2022 at 06:30. 08:36 Method Of Arrival: Ambulatory db 08:36 Acuity: [place] 3 db Triage Assessment: 08:38 General: Appears in no apparent distress. uncomfortable, Behavior is calm, cooperative, db appropriate for age, restless. Pain: Complains of pain in right flank Pain began suddenly. Neuro: No deficits noted. Level of Consciousness is awake, alert, obeys commands, Oriented to person, place, time, situation, Appropriate for age. GI: Abdomen is flat, Reports nausea, vomiting, Patient currently denies diarrhea. 08:38 : No deficits noted. No signs and/or symptoms were reported regarding the db genitourinary system. Denies burning with urination. 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 - Social history:: Smoking status: Patient reports the use of cigarette tobacco products, smokes one-half pack cigarettes per day. Screenin:45 Abuse screen: Denies threats or abuse. Nutritional screening: No deficits noted. vg1 Tuberculosis screening: No symptoms or risk factors identified. Fall Risk No fall in past 12 months (0 pts). No secondary diagnosis (0 pts). IV access (20 points). Ambulatory Aid- None/Bed Rest/Nurse Assist (0 pts). Gait- Normal/Bed Rest/Wheelchair (0 pts) Mental Status- Oriented to own ability (0 pts). Total Puentes Fall Scale indicates No Risk (0-24 pts). Assessment: 08:45 General: Appears uncomfortable, Behavior is calm, cooperative. Pain: Complains of pain vg1 in Right flank Pain currently is 9 out of 10 on a pain scale. Pain began this morning. Neuro: Level of Consciousness is awake, alert, obeys commands, Oriented to person, place, time, situation. Cardiovascular: Patient's skin is warm and dry. Respiratory: Airway is patent Respiratory effort is even, unlabored. GI: Abdomen is round non-distended, Reports nausea, vomiting. : Reports "I feel like I can pee but when I go its only a trickle; I also have a hx of kidney stones". EENT: No signs and/or symptoms were reported regarding the EENT system. Derm: Skin is pink, warm \\T\\ dry. Musculoskeletal: Circulation, motion, and sensation intact. 09:30 Reassessment: Pt transported to CT via stretcher. vg1 09:38 Reassessment: Patient appears in no apparent distress at this time. No changes from vg1 previously documented assessment. Patient and/or family updated on plan of care and expected duration. Pain level reassessed. Patient is alert, oriented x 3, equal unlabored respirations, skin warm/dry/pink. Vital Signs: 08:36 BP 100 / 53; Pulse 87; Resp 18; Temp 98.2(O); Pulse Ox 98% on R/A; Weight 108.86 kg; db Height 5 ft. 4 in. (162.56 cm); Pain 9/10; 09:38 BP 125 / 96; Pulse 74; Resp 15; Pulse Ox 98% on R/A; vg1 10:25 BP 128 / 86; Pulse 67; Resp 15; Pulse Ox 99% on R/A; vg1 08:36 Body Mass Index 41.20 (108.86 kg, 162.56 cm) db ED Course: 08:23 Patient arrived in ED. am2 08:25 Christal Dick FNP-C is PHCP. snw 08:25 Bao Castillo MD is Attending Physician. snw 08:34 Staci Moreno, RN is Primary Nurse. vg1 08:38 Triage completed. db 08:38 Arm band placed on right wrist. db 08:45 Patient has correct armband on for positive identification. Bed in low position. Call vg1 light in reach. Side rails up X 1. 09:10 Missed attempt(s): 22 gauge in left forearm. vg1 09:25 Accessed peripheral vein via ultrasound, utilizing dynamic ultrasound technique using jd3 20G Nexia IV catheter ,sterile technique, per hospital protocol. Clean \\T\\ dry. Dressing intact. Good blood return. Flushes easily. 20 G placed to the right AC. 09:35 CT Stone Protocol In Process Unspecified. EDMS 10:04 Christal Dick FNP-C is PHCP. snw 10:26 No provider procedures requiring assistance completed. IV discontinued, intact, vg1 bleeding controlled, No redness/swelling at site. Pressure dressing applied. Administered Medications: 09:25 Drug: Phenergan (promethazine) 25 mg Route: IM; Site: left deltoid; vg1 10:25 Follow up: Response: No adverse reaction; Marked relief of symptoms vg1 09:29 Drug: Dilaudid (HYDROmorphone) 1 mg Route: IVP; Site: right antecubital; vg1 10:00 Follow up: Response: No adverse reaction; No change in condition vg1 09:37 Drug: NS 0.9% 1000 ml Route: IV; Rate: 1 bolus; Site: right antecubital; vg1 10:25 Follow up: IV Status: Completed infusion; IV Intake: 500ml vg1 10:22 Drug: fentaNYL (PF) 50 mcg Route: IM; Site: right deltoid; vg1 10:25 Follow up: Response: Medication administered at discharge. vg1 Medication: 09:34 VIS not applicable for this client. vg1 Intake: 10:25 IV: 500ml; Total: 500ml. vg1 Outcome: :56 Discharge ordered by MD. crow 10: Discharged to home ambulatory. vg1 10: Condition: good 10: Discharge instructions given to patient, Instructed on discharge instructions, follow up and referral plans. medication usage, Demonstrated understanding of instructions, follow-up care, medications, Prescriptions given X 3. 10:26 Patient left the ED. vg1 Signatures: Dispatcher [employer] EDMS Christal Dick, ROLLED OATS MILL OPERATOR-C ROLLED OATS MILL OPERATOR-Csnw Magdalene Chaney Jonathon, RN RN jd3 Garcia, Victoria, RN RN vg1 Marge Crawford RN RN db
[2022-06-05] MEDS ORDERED: FENTANYL CITR 100 MCG/2 ML ONE (10:19)
[2022-06-05 12:35] VITALS: TEMP 98.2
[2022-06-05 12:37] VITALS: BP 128/86; O2SAT 99
== END 2022-06-05 10:26 | disposition home or self-care (01) ==
LOC: ER 08:22
DX: N23 Unspecified renal colic (principal)
CPT/HCPCS: 36415; 74176; 76377; 80053; 83690; 85025; 96361; 96372; 96374; 99284; J1170; J2550; J3010; J7030

== ENCOUNTER 2022-06-27 04:45 | Emergency (ER) | payer SELFPAY ==
--- OUTSIDE RECORDS SUMMARY | 2022-06-27 05:02 | XMS REPORT | Continuity of Care Document ---
:1985 Author Organization [facility] t Address [address] [place] [address] Care Team Providers Name Role Phone Keila Valentine MD Primary Care Physician Josué Arango Attending Clinician Unavailable SANTINO_Ingrid_Truman_ Attending Clinician Unavailable MAGDALENE LUCIA Attending Clinician Unavailable Magdalene Lucia MD Attending Clinician Unknown, Attending Attending Clinician Unavailable RIDGE PAGAN Attending Clinician Unavailable Ridge Pagan MD Attending Clinician Truman Quintero Attending Clinician Unavailable TRICE HARRIS Attending Clinician Unavailable Steven ORTHOTIC FITTER, Trice Attending Clinician Mohan ORTHOTIC FITTER, Ameena Attending Clinician AMEENA PRESTON Attending Clinician Unavailable Praveen Blas MD Attending Clinician EKTA BERMUDEZ Attending Clinician Unavailable PATRICK CARRANZA Attending Clinician Unavailable Olga Clements Attending Clinician Unavailable LEANNE LOZOYA Attending Clinician Unavailable Leanne De Anda S Attending Clinician Eve Chaves RN Attending Clinician Unavailable Ebsonja ORTHOTIC FITTER, Patrick Attending Clinician Doctor Unassigned, [place] Attending Clinician Unavailable SETH DYKES Attending Clinician [...] Unavailable JODY, FLOYD Attending Clinician Unavailable POLLY HONG Attending Clinician [...] Number Effective Date Expiration Date Abhinav durbin [id number] 1958 00:00:00 MEDI-SHARE C1 [id number] [facility] MEDI-SHARE C1 [id number] [facility] MEDI-SHARE C1 [id number] [facility] [id number] 1958 00:00:00 MEDI-SHARE C1 [id number] [facility]aeism [facility] PHCS GENERIC [id number] 2018 00:00:00 Problems Condition Condition Condition Status [...] Problem Active [facility] l (LUF/LI [...] of preprocedu preprocedu 00:00: g of this [facility] 00 note examinasandra examindiana might be Gian payton different n from the Cancer original. 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 Memoria l (LUF/LI V/SA) Pain in Pain in Problem Active [facility] St pelvis pelvis [facility] (LUF/LI V/SA) Anxiety Anxiety Problem Active [facility] (LUF/LI V/SA) [id number] Endometrio Problem Active Co [facility] No known No known Disease Unive rs active active ity of problems problems [facility] Allergies, Adverse Reactions, Alerts Allergy Allergy Status Severity Reaction(s) Onset Inactive Treating Comm ents Source Name Type Date Date Clinician ketorola DA Active [place] rash 2021-07 [facility] [place] 00:[facility]: [facility] ket[place]ola DA Active U rash [facility] 2-07 [place] 00:00: Orthope 00 dic Hosp[facility] l KETOROLA DRUG Active Low Rash 2020-07 Univers C INGREDI 2- ity of 00:00: [place] 00 Medical Branch Ketorola Propensi Active Rash 2020-07 Univer s c ty to 2- ity of adverse 00:00: [place] reaction 00 [facility] Branch ketorola DA Active NV 2018-0 [facility] 9-10 [facility] [place] ketorola DA Active U rash 2014-0 [facility] c 9-24 [place] 00:00: d 00 [facility] ketorola DA Active U 2015-0 [facility] c 9-24 [place] 00:00: d 00 [facility] [place] Ketorola Drug Active Itching 2010- Univers c Allergy 1-19 ity of 00:00: [place] 00 MD [facility] 0 Drug Active Unknown Common allergy [facility] Family History Family Member Diagnosis Comments Start Date Stop Date Source Natural mother -Breast cancer [facility] Social History Social Habit Start Date Stop Date Quantity Comments Source History of Tobacco [facility] - Use [facility] ASSERTION [facility] Exposure to 2022-04-27 2022-05-07 Not sure [facility] SARS-CoV-2 (event) 00:00:00 07:55:00 [facility] Tobacco use and 2021-08-29 2021-08-29 Smokeless Universit y of exposure 00:00:00 00:00:00 tobacco non-user [facility] Alcohol intake 2018-10-04 2018-10-04 Current University of 00:00:00 00:00:00 non-drinker of [place] MD Lila mu[facility]oz [facility] (finding) Cigarettes smoked 2018-09-04 2018-09-04 Univers ity of current (pack per 00:00:00 00:00:00 [place] Zoltan Neely ) - Reported Cancer Ce nter Cigarette 2018-09-04 2018-09-04 University of pack-years 00:00:00 00:00:00 [facility] Sex Ass[birth year] At [birth year] [facility] Smoking Status Start Date Stop Date Source Tobacco smoking [facility] consumption unknown Never smoked tobacco [facility] Former Smoker 2020-05-03 00:00:00 2020-05-03 [facility] Ce nter Medications Ordered Filled Start Stop Current Ordering Indication Dosage Frequency Signature Comments Components Source Medication Medication Date Date Medication? Clinician (SIG) Name Name ondansetron 2021-07 [id number] 8mg Univers (ZOFRAN-ODT 2-15 12-14 ity of ) 00:45: 23:45 [place] disintegrat 00 :00 Medical ing tablet Branch 8 mg ondansetron 2021-07- No [id number] 8mg 8 mg, Univers (ZOFRAN-ODT 2-15 12-14 Oral, ity of ) 00:45: 23:45 ONCE, 1 [place] disintegrat 00 :00 dose, On Medi felipa ing tablet Wed Branch 8 mg 06/13/22 at 1845, Routine benzonatate 2021-07 Yes [id number] 200mg Take 2 Univers 100 mg 2-14 capsules ity of capsule 00:00: by mouth [place] 00 every 8 Medical (eight) Branch hours as needed for Cough. ondansetron 2021-07 Yes [id number] 4mg Take 1 Univers 4 mg 2-14 tablet by ity of disintegrat 00:00: mouth [place] ing tablet 00 every 8 Medica l (eight) Branch hours as needed for Nausea and Vomiting (N/V). nirmatrelvi 2021-07 Yes [id number] 3{tbl} Take 3 Univers r-ritonavir 2-14 tablets by it y of (PAXLOVID, 00:00: mouth in [place] as EUA,) 300 00 the Medical mg (150 mg morning Branch x 2)-100 mg and 3 tablet tablets in the evening. ondansetron 2021-07 Yes [id number] 4mg Take 1 Univers 4 mg 2-14 tablet by ity of disintegrat 00:00: mouth [place] ing tablet 00 every 8 Medica l (eight) Branch hours as needed for Nausea and Vomiting (N/V). nirmatrelvi 2021-07 Yes [id number] 3{tbl} Take 3 Univers r-ritonavir 2-14 tablets by it y of (PAXLOVID, 00:00: mouth in [place] as EUA,) 300 00 the Medical mg (150 mg morning Branch x 2)-100 mg and 3 tablet tablets in the evening. promethazin 2021-07 Yes [id number] 5mL Take 5 mL Univers e-dextromet 2-14 by mouth 4 it y of horphan 00:00: (four) [place] 6.25-15 00 times Medical mg/5 mL daily as Branch syrup needed for Cough. nirmatrelvi 2021-07 No [id number] 3{tbl} Take 3 Univers r-ritonavir 08-14-14 tablets by i ty of (PAXLOVID, 00:00: 00:00 [place] EUA,) 300 00 :00 the Medical mg (150 mg morning Branch x 2)-100 mg and 3 tablet tablets in the evening. benzonatate 2021-07 No [id number] 200mg Take 2 Univers 100 mg 2-14 -14 capsules ity of capsule 00:00: 00:00 by mouth [place] 00 :00 every 8 Medical (eight) Branch hours as needed for Cough. ondansetron 2021-07 No 4mg 4 mg, Slow Univers (ZOFRAN 07-07 IV Push, ity of (PF)) 15:45: 15:35 ONCE, 1 [place] injection 4 00 :00 dose, On Medi felipa mg 05/07/22 at 0945, JOSE FENTanyl PF 2021-07 [...] Sat05/07/22 at 0915, Routine
Indicatio n: Perioperat melvin Patient tamsulosin 2021-07 Yes [id number] .4mg Take 1 U nivers 0.4 mg 24 07-07 capsule by ity of hr capsule 00:00: mouth at [place] as 00 bedtime. Medical Branch tamsulosin 2021-07- No [id number] .4mg Take 1 Univers 0.4 mg 24 07-07 capsule by ity of hr capsule 00:00: 00:00 [place] 00 :00 bedtime. Medical Branch HYDROcodone 2021-07- Yes [id number] 1{tbl} Take 1 U nivers -acetaminop 07-07 11-15 tablet by it y of hen 5-325 00:00: 05:59 mouth [place] mg tablet 00 :00 every 4 Medical (four) Branch hours as needed for Pain (scale 4-6) for up to 7 days. Indication s: acute pain metoclopram 2021- No 10mg 10 mg, Uni vers oleg HCl 02-19 Slow IV ity of (REGLAN) 15:30: 15:37 Push, [place] injection 00 :00 ONCE, 1 Medical 10 mg dose, On Branch [facility] 02/19/22 at 1030, JOSE NaCl 0.9% 2021- No 1000mL at 999 Uni vers (NS) bolus 02-19 mL/hr, ity of infusion 15:30: 15:58 1,000 mL, [place] as 1,000 mL 00 :00 IV Medical Infusion, Branch ONCE, 1 dose, On [facility] 02/19/22 at 1030, JOSE morpHINE (4 2021- No 4mg 4 mg, Slow Univers mg/mL) 02-19 IV Push, ity of injection 4 14:45: 15:05 ONCE, 1 [place] mg 00 :00 dose, On Medical [facility] Branch 02/19/22 at 0945, STAT ondansetron 2021- No 4mg 4 mg, Slow Univers (ZOFRAN 02-19 IV Push, ity of (PF)) 14:30: 15:05 ONCE, 1 [place] injection 4 00 :00 dose, On Medi felipa mg [facility] 02/19/22 at 0930, JOSE methylPREDN 2021-0 Yes [id number] Take by Univers ISolone 6-01 mouth ity of (MEDROL, 00:00: SEE-INSTRU [place] TE,) 4 mg 00 CTIONS. Medica l tablets follow Branch package directions methylPREDN 2021-0 Yes [id number] Take by Univers ISolone 6-01 mouth ity of (MEDROL, 00:00: SEE-INSTRU [place] TE,) 4 mg 00 CTIONS. Medica l tablets follow Branch package directions methylPREDN Yes [id number] Take by Univers ISolone 11-29 mouth ity of (MEDROL, 00:00: SEE-INSTRU [place] TE,) 4 mg 00 CTIONS. Medica l tablets follow Branch package directions methylPREDN 2021- No [id number] Take by Univers ISolone 11-29 12-14 mouth ity of (MEDROL, 00:00: 00:00 [place]INSTRU [place] TE,) 4 mg 00 :00 CTIONS. Medica l tablets follow Branch package directions amoxicillin 2021- No [id number] 1{tbl} Take 1 Univers -clavulanat 11-29 tablet [...] [place] ORAL) 44 Medical Branch naproxen Yes [id number] 500mg Take 1 U nivers (NAPROSYN) 2-02 tablet by ity of 500 mg 00:00: mouth 2 [place] tablet 00 (two) Medical times Branch daily with meals. naproxen 2022-0 Yes [id number] 500mg Take 1 U nivers (NAPROSYN) 2-02 tablet by ity of 500 mg 00:00: mouth 2 [place] tablet 00 (two) Medical times Branch daily with meals. naproxen 2021-0 Yes [id number] 500mg Take 1 U nivers (NAPROSYN) 2-02 tablet by ity of 500 mg 00:00: mouth 2 [place] tablet 00 (two) Medical times Branch daily with meals. naproxen 2021-0 Yes [id number] 500mg Take 1 U nivers (NAPROSYN) 2-02 tablet by ity of 500 mg 00:00: mouth 2 [place] tablet 00 (two) Medical times Branch daily with meals. naproxen 2021-0 Yes [id number] 500mg Take 1 U nivers (NAPROSYN) 2-02 tablet by ity of 500 mg 00:00: mouth 2 [place] tablet 00 (two) Medical times Branch daily with meals. albuterol 2020-07 Yes [id number] 2{puff} Inhale 2 Univers 90 2-22 Puffs [...] Cough. Indication s: cough albuterol 2020-07 Yes [id number] 2{puff} Inhale 2 Univers 90 2-22 Puffs [...] Cough. Indication s: cough albuterol 2020-07 Yes [id number] 2{puff} Inhale 2 Univers 90 2-22 Puffs [...] Cough. Indication s: cough albuterol 2020-07 Yes [id number] 2{puff} Inhale 2 Univers 90 2-22 Puffs [...] Cough. Indication s: cough albuterol 2020-07 Yes [id number] 2{puff} Inhale 2 Univers 90 2-22 Puffs ity of mcg/actuati 00:00: every 6 [place] as on inhaler 00 (six) Medical hours as Branch needed for Wheezing or Bronchospa sm. codeine-gua 2020-07- No 10mL Take 10 mL Univers ifenesin 2-22 12-14 by mouth ity of 10-100 mg/5 00:00: 00:00 every 6 [place] mL oral 00 [...] [place] 00 EVERY DAY Medical IN THE [place] MORNING ON AN EMPTY STOMACH levothyroxi 2020-07 Yes TAKE 1 Univ ers ne 137 mcg 2-16 TABLET BY ity of tablet 00:00: MOUTH [place] 00 EVERY DAY Medical IN THE Branch MORNING ON AN EMPTY STOMACH acetaminoph acetaminoph 2020-[address] en 325 [...] 0-23 [facility] 00:00: - [facility] 00 [facility] Premarin Premarin 2018-07 No 1{table QD Premarin 1.25 MG 1.25 MG 0-23 t} 1.25 MG 00:00: 00 estrogens, 2018-07 Yes Take by Univ ers conjugated 0-23 mouth ity of (PREMARIN 00:00: daily. [place] ORAL) [address] [facility] estrogens, 2018-07 Yes Take by Univ ers [...] of (PREMARIN 00:00: daily. [place] ORAL) 00 [facility] tata [facility] estrogens, 2018-07 Yes Take by Univ ers conjugated 0-23 mouth ity of (PREMARIN 00:00: daily. [place] ORAL) [facility] estrogens, 2018-07 Yes Take by Univ ers conjugated 0-23 mouth ity of (PREMARIN 00:00: daily. [place] ORAL) 00 [facility] tata [facility] estrogens, 2018-07 Yes Take by Univ ers conjugated 0-23 mouth ity of (PREMARIN 00:00: daily. [place] ORAL) 00 [facility] tata [facility] estrogens, 2018-07 Yes Take by Univ ers conjugated 0-23 mouth ity of (PREMARIN 00:00: daily. [place] ORAL) 00 [facility] tata [facility] estrogens, 2018-07 Yes Take by Univ ers conjugated 0-23 mouth ity of (PREMARIN 00:00: daily. [place] ORAL) 00 [facility] Estradiol Estradiol 2018-07 Yes Kay[place] 1 tablet Common 0-01 [facility] 00:00: - [facility] 00 [facility] citalopram 0 Yes Univers (CeleXA) 40 9-10 ity of mg tablet 00:00: [facility] citalopram 0 Yes Univers (CeleXA) 40 9-10 ity of mg tablet 00:00: [facility] citalopram 2017-0 Yes Univers (CeleXA) 40 9-10 ity of mg tablet 00:00: [facility] 0 Yes Univers (CeleXA) 40 9-10 ity of mg tablet 00:00: [facility] citalopram [id number] Yes Univers (CeleXA) 40 9-10 ity of mg tablet 00:00: MD Springer [facility] citalopram 2018-0 Yes Univers (CeleXA) 40 9-10 ity of mg tablet 00:00: [facility] citalopram 2018-0 Yes Univers (CeleXA) 40 9-10 ity of mg tablet 00:00: MD Springer [facility] citalopram 0 Yes Univers (CeleXA) 40 9-10 ity of mg tablet 00:00: MD [facility] citalopram 0 Yes Univers (CeleXA) 40 9-10 ity of mg tablet 00:00: MD Gian payton [facility] citalopram 0 Yes Univers (CeleXA) 40 9-10 ity of mg tablet 00:00: MD Gian payton [facility] citalopram Yes Univers (CeleXA) 40 9-10 ity of mg tablet 00:00: MD Gian payton [facility] citalopram 0 Yes Univers (CeleXA) 40 9-10 ity of mg tablet 00:00: MD Gian payton [facility] levothyroxi 0 Yes Univer s ne 175 mcg 8-10 ity of cap 00:00: MD Gian payton [facility] levothyroxi 0 Yes Univer s ne 175 mcg 8-10 ity of cap 00:00: MD Gian [facility] [place] levothyroxi 0 Yes Univer s ne 175 mcg 8-10 ity of cap 00:00: MD Gian payton [facility] levothyroxi 0 Yes Univer s ne 175 mcg 8-10 ity of cap 00:00: MD Gian [facility]ton [facility] [place] levothyroxi 0 Yes Univer s ne 175 mcg 8-10 ity of cap 00:00: MD [facility] [place] levothyroxi 2010-0 Yes Univer s ne 175 mcg 8-10 ity of cap 00:00: MD [facility] levothyroxi 0 Yes Univer s ne 175 mcg 8-10 ity of cap 00:00: MD [facility] levothyroxi 2010-0 Yes Univer s ne 175 mcg 8-10 ity of cap 00:00: MD [facility] levothyroxi 2010-0 Yes Univer s ne 175 mcg 8-10 ity of cap 00:00: MD [facility] [place] levothyroxi 2010-0 Yes Univer s ne 175 mcg 8-10 ity of cap 00:00: [place] 00 MD Gian payton [facility] levothyroxi 2010-0 Yes Univer s ne 175 mcg 8-10 ity of cap 00:00: [facility] levothyroxi 2010-0 Yes Univer s ne 175 mcg 8-10 ity of cap 00:00: [place] 00 [facility] tata [facility] zolpidem 2006-0 Yes Univers (AMBIEN) 10 07-01 ity of mg tablet 00:00: [place] 00 [facility] zolpidem 2006-0 Yes Univers (AMBIEN) 10 07-01 ity of mg tablet 00:00: [place] 00 [facility] zolpidem 2006-0 Yes Univers (AMBIEN) 10 07-01 ity of mg tablet 00:00: [place] 00 [facility] zolpidem 2006-0 Yes Univers (AMBIEN) 10 07-01 ity of mg tablet 00:00: [place] 00 [facility] zolpidem 2006-0 Yes Univers (AMBIEN) 10 07-01 ity of mg tablet 00:00: [place] 00 [facility] tata [facility] zolpidem 2006-0 Yes Univers (AMBIEN) 10 07-01 ity of mg tablet 00:00: [place] 00 [facility] zolpidem 2006-0 Yes Univers (AMBIEN) 10 07-01 ity of mg tablet 00:00: [place] [facility] zolpidem 2006-0 Yes Univers (AMBIEN) 10 07-01 ity of mg tablet 00:00: [place] 00 MD Gian payton [facility] zolpidem 2007-0 Yes Univers (AMBIEN) 10 07-01 ity of mg tablet 00:00: [place] 00 [facility] zolpidem 2007-0 Yes Univers (AMBIEN) 10 07-01 ity of mg tablet 00:00: [place] 00 [facility] zolpidem 2007-0 Yes Univers (AMBIEN) 10 07-01 ity of mg tablet 00:00: [place] 00 MD Gian payton [facility] zolpidem 2007-0 Yes Univers (AMBIEN) 10 07-01 ity of mg tablet 00:00: [place] [facility] acetaminoph acetaminoph Yes 1 Q5.00H [...] C [facility] conjugated conjugated Gutierrez es (CARE HOME) 1.25 (CARE HOME) 1.25 Mem oria MG Oral MG Oral [...] [facility] conjugated conjugated daily Olamide kes (CARE HOME) 1.25 (CARE HOME) 1.25 Mem oria MG Oral MG Oral l Tablet Tablet (LUF/LI V/SA) levothyroxi levothyroxi Yes 150ug 1xD orally [facility] ne ne daily [facility] (LUF/LI V/SA) Celexa Celexa Yes ywin 1 tablet Commo n [facility] Levothyroxi Levothyroxi Yes y 1 tablet Common ne Sodium ne Sodium [facility] on an Sp karla empty - [facility] stomach in [facility] Estradiol Estradiol Yes ywin 1 patch to Common [facility] Promethazin Promethazin No 1{table Promethazi e HCl 25 mg e HCl 25 mg t_as_ne ne HCl 25 eded} mg Estradiol Estradiol No 1{patch Estradiol 0.1 MG/24HR 0.1 MG/24HR _to_ski 0.1 n} MG/24HR Celexa 40 Celexa 40 No 1{table QD Celexa 40 MG MG t} MG Flovilla Flovilla No 1{table QID [place] 7.5-325 MG 7.5-325 MG t_as_ne 7.5-325 MG [...] Sodium 150 MCG 150 MCG 150 MCG Flovilla Flovilla No 1{table QID [place] 7.5-325 MG 7.5-325 MG t_as_ne 7.5-325 MG eded} Promethazin Promethazin No 1{table Promethazi e HCl 25 mg e HCl 25 mg t_as_ne ne HCl 25 eded} mg Estradiol Estradiol No 1{patch Estradiol 0.1 MG/24HR 0.1 MG/24HR _to_ski 0.1 n} MG/24HR Premarin Premarin No 1{table QD Premarin 1.25 MG 1.25 MG t} 1.25 MG Flovilla Flovilla No 1{table QID [place] 7.5-325 MG 7.5-325 MG t_as_ne 7.5-325 MG [...] 1.25 MG 1.25 MG t} 1.25 MG [place]ovilla Flovilla No 1{table QID [place] 7.5-325 MG 7.5-325 MG t_as_ne 7.5-325 MG [...] University of Unspecified 00:00:00 [place] MD Hamilton [facility] Tdap 2011-03-30 Completed University of 00:00:00 [place] MD Olvin banuelos [facility] Influenza, 2011-03-30 Completed University of Unspecified 00:00:00 [place] MD Hamilton stefano [facility] Tdap 2011-03-30 Completed University of 00:00:00 [place] MD Olvin banuelos [facility] Influenza, 2011-03-30 Completed University of Unspecified 00:00:00 [place] MD Hamilton stefano [facility] Tdap 2011-03-30 Completed University of 00:00:00 [place] MD Olvin banuelos [facility] Influenza, 2011-03-30 Completed University of Unspecified 00:00:00 [place] MD Hamilton [facility] Tdap 2011-03-30 Completed University of 00:00:00 [place] Olvin [facility] Influenza, 2011-03-30 Completed University of Unspecified 00:00:00 [place] Alfonso ilir [facility] Tdap 2011-03-30 Completed University of 00:00:00 [place] Olvin [facility] Influenza, 2011-03-30 Completed University of Unspecified 00:00:00 [place] Alfonso ilir [facility] Tdap 2011-03-30 Completed University of 00:00:00 [place] Olvin [facility] Influenza, 2011-03-30 Completed University of Unspecified 00:00:00 [place] [facility] 2011-03-30 Completed University of 00:00:00 [place] Olvin [facility] Influenza, 2011-03-30 Completed University of Unspecified 00:00:00 [place] Alfonso ilir [facility] Tdap 2011-03-30 Completed University of 00:00:00 [place] [facility] Influenza, 2011-03-30 Completed University of Unspecified 00:00:00 [place] [facility] 2011-03-30 Completed University of 00:00:00 [place] [facility] Influenza, 2011-03-30 Completed University of Unspecified 00:00:00 [place] [facility] T[facility] 2011-03-30 Completed University of 00:00:00 [place] [facility] Influenza, 2011-03-30 Completed University of Unspecified 00:00:00 [place] [facility] T[facility] 2011-03-30 Completed University of 00:00:00 [place] Olvin [facility] Influenza, 2011-03-30 Completed University of Unspecified 00:00:00 [place] Alfonso [facility] Tdap 2011-03-30 Completed University of 00:00:00 [place] [facility] Influenza (IM) 2009-04-05 Completed University of Preservative Free 00:00:00 [facility] Influenza (IM) 2009-04-05 Completed University of Preservative Free 00:00:00 [facility] Influenza (IM) 2009-04-05 Completed University of Preservative Free 00:00:00 [facility] Influenza (IM) 2009-04-05 Completed University of Preservative Free 00:00:00 [facility] Influenza (IM) 2009-04-05 Completed University of Preservative Free 00:00:00 [facility] Influenza (IM) 2009-04-05 Completed University of Preservative Free 00:00:00 [facility] Influenza (IM) 2009-04-05 Completed University of Preservative Free 00:00:00 [facility] Influenza (IM) 2009-04-05 Completed University of Preservative Free 00:00:00 [facility] Influenza (IM) 2009-04-05 Completed University of Preservative Free 00:00:00 [facility] Influenza (IM) 2009-04-05 Completed University of Preservative Free 00:00:00 [facility] Influenza (IM) 2009-04-05 Completed University of Preservative Free 00:00:00 [facility] Influenza (IM) 2009-04-05 Completed University of Preservative Free 00:00:00 [facility] Vital Signs Vital Name Observation Time Observation Value Comments Source Systolic blood 2022-06-13 23:28:00 132 mm[Hg] Univer sity of pressure [facility] Diastolic blood 2022-06-13 23:28:00 83 mm[Hg] Unive rsity of [facility] Heart rate 2022-06-13 23:28:00 107 /min [facility] Body temperature 2022-06-13 23:28:00 37.17 Ericka [facility] Respiratory rate 2022-06-13 23:28:00 16 /min [facility] Body height 2022-06-13 23:28:00 162.6 cm [facility] Body weight 2022-06-13 23:28:00 102.15 kg [facility] BMI 2022-06-13 23:28:00 38.66 kg/m2 [facility] Oxygen saturation in 2022-06-13 23:28:00 96 /min [facility] Arterial blood by [facility] [place] [facility]xim[facility] Systolic blood 2022-05-07 14:46:22 138 mm[Hg] Univer sity of pressure [facility] Diastolic blood 2022-05-07 14:46:22 88 mm[Hg] Unive rsity of pressure [facility] Heart rate 2022-05-07 14:46:22 89 /min [facility] Respiratory rate 2022-05-07 14:46:22 20 /min [facility] Oxygen saturation in 2022-05-07 14:46:22 98 /min [facility] Body temperature 2022-05-07 14:07:33 [...] 99 /min [facility] Arterial blood by [facility] felipa Pulse oximetry Branch Systolic blood 2021-11-29 22:40:00 116 mm[Hg] Univer sity of pressure [facility] Diastolic blood 2021-11-29 22:40:00 85 mm[Hg] Unive rsity of pressure [facility] Heart rate 2021-11-29 22:40:00 87 /min [facility] Body temperature 2021-11-29 22:40:00 37.28 Ericka [facility] Respiratory rate 2021-11-29 22:40:00 16 /min [facility] Body height 2021-11-29 22:40:00 162.6 cm [facility] Body weight 2021-11-29 22:40:00 103.874 kg [facility] BMI 2021-11-29 22:40:00 39.31 kg/m2 [facility] Oxygen saturation in 2021-11-29 22:40:00 98 /min [facility] Arterial blood by [facility] [place] [facility]ulse oximetry [facility] Height 2021-04-23 00:58:00 162.56 [...] Center Heart rate 2021-10-26 15:16:33 92 /min [facility] Respiratory rate 2021-10-26 15:16:33 16 /min [facility] Oxygen saturation in 2021-10-26 15:16:33 98 /min [facility] blood by Jeffrey muñoz Pulse oximetry [facility] Body Temperature 2021-04-23 00:58:00 97.8 [degF] On license of [facility] (LUF/DAVID/SA) Pulse Rate 2021-04-23 00:58:00 116 /min [facility] (F/DAVID/SA) Respiratory Rate 2021-04-23 00:58:00 18 /min On license of [facility] (F/DAVID/SA) O2% BldC Oximetry 2021-04-23 00:58:00 99 % On license of [facility] (F/DAVID/SA) BP Systolic 2021-04-23 00:58:00 111 mm[Hg] [facility] (F/DAVID/SA) BP Diastolic 2021-04-23 00:58:00 77 mm[Hg] [facility] (F/DAVID/SA) Height 2021-04-23 00:58:00 64 [in_i] [facility] (F/DAVID/SA) Weight 2021-04-23 00:58:00 105.1 kg [facility] (F/DAVID/SA) BMI (Body Mass 2021-04-23 00:58:00 40 kg/m2 [facility] (F/DAVID/SA) Body Temperature 2021-03-24 10:53:00 98.6 [degF] On license of [facility] (LUF/DAVID/SA) Pulse Rate 2021-03-24 10:53:00 87 /min [facility] (F/DAVID/SA) Respiratory Rate 2021-03-24 10:53:00 18 /min On license of [facility] (LUF/DAVID/SA) O2% BldC Oximetry 2021-03-24 10:53:00 97 % On license of [facility] (LUF/DAVID/SA) BP Systolic 2021-03-24 10:53:00 120 mm[Hg] [facility] (LUF/DAVID/SA) BP Diastolic 2021-03-24 10:53:00 86 mm[Hg] [facility] (LUF/DAVID/SA) Height 2021-03-24 10:53:00 64 [in_i] [facility] (LUF/DAVID/SA) Weight 2021-03-24 10:53:00 105 kg [facility] (LUF/DAVID/SA) BMI (Body Mass 2021-03-24 10:53:00 40 kg/m2 [facility] Index) [facility] (LUF/DAVID/SA) Body Temperature 2021-03-10 10:55:00 98.4 [degF] On license of [facility] (LUF/DAVID/SA) Pulse Rate 2021-03-10 10:55:00 85 /min [facility] (LUF/DAVID/SA) Respiratory Rate 2021-03-10 10:55:00 20 /min On license of [facility] (LUF/DAVID/SA) O2% BldC Oximetry 2021-03-10 10:55:00 100 % On license of [facility] (LUF/DAVID/SA) BP Systolic 2021-03-10 10:55:00 140 mm[Hg] [facility] (LUF/DAVID/SA) BP Diastolic 2021-03-10 10:55:00 98 mm[Hg] [facility] (LUF/DAVID/SA) Height 2021-03-10 10:55:00 64 [in_i] [facility] (F/DAVID/SA) Weight 2021-03-10 10:55:00 105.2 kg [facility] (LUF/DAVID/SA) BMI (Body Mass 2021-03-10 10:55:00 40 kg/m2 [facility] Index) [facility] (LUF/DAVID/SA) Pulse Rate 2021-02-23 12:32:00 67 /min [facility] (LUF/DAVID/SA) O2% BldC Oximetry 2021-02-23 12:32:00 98 % On license of [facility] (LUF/DAVID/SA) BP Systolic 2021-02-23 12:32:00 112 mm[Hg] [facility] (LUF/DAVID/SA) BP Diastolic 2021-02-23 12:32:00 70 mm[Hg] [facility] (LUF/DAVID/SA) Heart Rate 2021-02-23 11:16:00 64 /min [facility] (LUF/DAVID/SA) Respiratory Rate 2021-02-23 11:16:00 14 /min On license of [facility] (F/DAVID/SA) Body Temperature 2021-02-23 08:24:00 98.1 [degF] On license of [facility] (F/DAVID/SA) Height 2021-02-23 08:24:00 64 [in_i] [facility] (F/DAVID/SA) Weight 2021-02-23 08:24:00 110 kg [facility] (LUF/DAVID/SA) BMI (Body Mass 2021-02-23 08:24:00 41.9 kg/m2 [facility] (F/DAVID/SA) Heart Rate 2021-01-10 01:46:00 93 /min [facility] (LUF/DAVID/SA) Pulse Rate 2021-01-10 01:46:00 95 /min [facility] (F/DAVID/SA) Respiratory Rate 2021-01-10 01:46:00 16 /min On license of [facility] (F/DAVID/SA) O2% BldC Oximetry 2021-01-10 01:46:00 97 % On license of [facility] (F/DAVID/SA) BP Systolic 2021-01-10 01:46:00 103 mm[Hg] [facility] (LUF/DAVID/SA) BP Diastolic 2021-01-10 01:46:00 71 mm[Hg] [facility] (F/DAVID/SA) Weight 2021-01-10 00:53:00 102 kg [facility] (LUF/DAVID/SA) Body Temperature 2021-01-10 00:47:00 98.6 [degF] On license of [facility] (LUF/DAVID/SA) Pulse Rate 2020-12-12 14:20:00 87 /min [facility] (LUF/DAVID/SA) O2% BldC Oximetry 2020-12-12 14:20:00 98 % On license of [facility] (LUF/DAVID/SA) BP Systolic 2020-12-12 14:20:00 128 mm[Hg] [facility] (LUF/DAVID/SA) BP Diastolic 2020-12-12 14:20:00 86 mm[Hg] [facility] (LUF/DAVID/SA) Body Temperature 2020-12-12 12:39:00 98.9 [degF] On license of [facility] (LUF/DAVID/SA) Respiratory Rate 2020-12-12 12:39:00 20 /min On license of [facility] (LUF/DAVID/SA) Weight 2020-12-12 12:39:00 102 kg [facility] (LUF/DAVID/SA) Body Temperature 2020-12-08 10:27:00 98.6 [degF] On license of [facility] (LUF/DAVID/SA) Pulse Rate 2020-12-08 10:27:00 79 /min [facility] (LUF/DAVID/SA) Respiratory Rate 2020-12-08 10:27:00 16 /min On license of [facility] (LUF/DAVID/SA) O2% BldC Oximetry 2020-12-08 10:27:00 99 % On license of [facility] (LUF/DAVID/SA) BP Systolic 2020-12-08 10:27:00 111 mm[Hg] [facility] (LUF/DAVID/SA) BP Diastolic 2020-12-08 10:27:00 57 mm[Hg] [facility] (LUF/DAVID/SA) Weight 2020-12-08 10:27:00 103 kg [facility] (LUF/DAVID/SA) Body Temperature 2020-11-25 00:27:00 97.9 [degF] On license of [facility] (LUF/DAVID/SA) Pulse Rate 2020-11-25 00:27:00 82 /min [facility] (LUF/DAVID/SA) Respiratory Rate 2020-11-25 00:27:00 17 /min On license of [facility] (LUF/DAVID/SA) O2% BldC Oximetry 2020-11-25 00:27:00 98 % On license of [facility] (LUF/DAVID/SA) BP Systolic 2020-11-25 00:27:00 109 mm[Hg] [facility] (LUF/DAVID/SA) BP Diastolic 2020-11-25 00:27:00 62 mm[Hg] [facility] (LUF/DAVID/SA) Heart Rate 2020-11-21 09:30:00 75 /min [facility] (LUF/DAVID/SA) Respiratory Rate 2020-11-21 09:30:00 14 /min On license of [facility] (LUF/DAVID/SA) BP Systolic 2020-11-21 09:30:00 120 mm[Hg] [facility] (LUF/DAVID/SA) BP Diastolic 2020-11-21 09:30:00 76 mm[Hg] [facility] (LUF/DAVID/SA) Body Temperature 2020-11-21 07:15:00 98.1 [degF] On license of [facility] (LUF/DAVID/SA) Pulse Rate 2020-11-21 07:15:00 103 /min [facility] (F/DAVID/SA) O2% BldC Oximetry 2020-11-21 07:15:00 100 % On license of [facility] (F/DAVID/SA) Height 2020-11-21 07:15:00 64 [in_i] [facility] (F/DAIVD/SA) Weight 2020-11-21 07:15:00 103.1 kg [facility] (LUF/DAVID/SA) BMI (Body Mass 2020-11-21 07:15:00 39.2 kg/m2 [facility] (LUF/DAVID/SA) Heart Rate 2020-11-14 13:30:00 69 /min [facility] (LUF/DAVID/SA) Pulse Rate 2020-11-14 13:30:00 70 /min [facility] (LUF/DAVID/SA) Respiratory Rate 2020-11-14 13:30:00 10 /min On license of [facility] (LUF/DAVID/SA) O2% BldC Oximetry 2020-11-14 13:30:00 96 % On license of [facility] (LUF/DAVID/SA) BP Systolic 2020-11-14 13:30:00 103 mm[Hg] [facility] (LUF/DAVID/SA) BP Diastolic 2020-11-14 13:30:00 77 mm[Hg] [facility] (LUF/DAVID/SA) Body Temperature 2020-11-14 09:47:00 97.4 [degF] On license of [facility] (F/DAVID/SA) Weight 2020-11-14 09:47:00 103 kg [facility] (F/DAVID/SA) Body Temperature 2020-11-08 08:32:00 98.1 [degF] On license of [facility] (LUF/DAVID/SA) Pulse Rate 2020-11-08 08:32:00 82 /min [facility] (LUF/DAVID/SA) Respiratory Rate 2020-11-08 08:32:00 20 /min On license of [facility] (LUF/DAVID/SA) O2% BldC Oximetry 2020-11-08 08:32:00 100 % On license of [facility] (LUF/DAVID/SA) BP Systolic 2020-11-08 08:32:00 129 mm[Hg] [facility] (LUF/DAVID/SA) BP Diastolic 2020-11-08 08:32:00 72 mm[Hg] [facility] (LUF/DAVID/SA) Height 2020-11-08 08:32:00 64 [in_i] [facility] (F/DAVID/SA) Weight 2020-11-08 08:32:00 103.1 kg [facility] (LUF/DAVID/SA) BMI (Body Mass 2020-11-08 08:32:00 39.2 kg/m2 [facility]) [facility] (LUF/DAVID/SA) Body Temperature 2020-11-01 00:58:00 98.7 [degF] On license of [facility] (LUF/DAVID/SA) Pulse Rate 2020-11-01 00:58:00 104 /min [facility] (LUF/DAVID/SA) Respiratory Rate 2020-11-01 00:58:00 20 /min On license of [facility] (F/DAVID/SA) O2% BldC Oximetry 2020-11-01 00:58:00 99 % On license of [facility] (F/DAVID/SA) BP Systolic 2020-11-01 00:58:00 133 mm[Hg] [facility] (LUF/DAVID/SA) BP Diastolic 2020-11-01 00:58:00 101 mm[Hg] [facility] (F/DAVID/SA) Height 2020-11-01 00:53:00 65 [in_i] [facility] (F/DAVID/SA) Weight 2020-11-01 00:53:00 103 kg [facility] (F/DAVID/SA) BMI (Body Mass 2020-11-01 00:53:00 37.8 kg/m2 [facility]) [facility] (F/DAVID/SA) Body Temperature 2020-10-04 23:51:00 98 [degF] On license of [facility] (LUF/DAVID/SA) Pulse Rate 2020-10-04 23:51:00 96 /min [facility] (F/DAVID/SA) Respiratory Rate 2020-10-04 23:51:00 20 /min On license of [facility] (F/DAVID/SA) O2% BldC Oximetry 2020-10-04 23:51:00 98 % On license of [facility] (F/DAVID/SA) BP Systolic 2020-10-04 23:51:00 125 mm[Hg] [facility] (LUF/DAVID/SA) BP Diastolic 2020-10-04 23:51:00 73 mm[Hg] [facility] (F/DAVID/SA) Height 2020-10-04 23:47:00 65 [in_i] [facility] (LUF/DAVID/SA) Weight 2020-10-04 23:47:00 102.6 kg [facility] (LUF/DAVID/SA) BMI (Body Mass 2020-10-04 23:47:00 37.6 kg/m2 [facility] Index) [facility] (LUF/DAVID/SA) Body Temperature 2020-09-18 01:44:00 98.3 [degF] On license of [facility] (LUF/DAVID/SA) Pulse Rate 2020-09-18 01:44:00 116 /min [facility] (LUF/DAVID/SA) Respiratory Rate 2020-09-18 01:44:00 20 /min On license of [facility] (F/DAVID/SA) O2% BldC Oximetry 2020-09-18 01:44:00 99 % On license of [facility] (F/DAVID/SA) BP Systolic 2020-09-18 01:44:00 127 mm[Hg] [facility] (LUF/DAVID/SA) BP Diastolic 2020-09-18 01:44:00 83 mm[Hg] [facility] (F/DAVID/SA) Height 2020-09-18 01:40:00 64 [in_i] [facility] (F/DAVID/SA) Weight 2020-09-18 01:40:00 102.8 kg [facility] (F/DAVID/SA) BMI (Body Mass 2020-09-18 01:40:00 39.1 kg/m2 [facility] (LUF/DAVID/SA) Pulse Rate 2020-09-12 02:16:00 88 /min [facility] (F/DAVID/SA) O2% BldC Oximetry 2020-09-12 02:16:00 98 % On license of [facility] (F/DAVID/SA) BP Systolic 2020-09-12 02:16:00 113 mm[Hg] [facility] (LUF/DAVID/SA) BP Diastolic 2020-09-12 02:16:00 64 mm[Hg] [facility] (LUF/DAVID/SA) Body Temperature 2020-09-12 00:56:00 97.9 [degF] On license of [facility] (LUF/DAVID/SA) Respiratory Rate 2020-09-12 00:56:00 18 /min On license of [facility] (LUF/DAVID/SA) Height 2020-09-12 00:50:00 65 [in_i] [facility] (LUF/DAVID/SA) Weight 2020-09-12 00:50:00 104.5 kg [facility] (LUF/DAVID/SA) BMI (Body Mass 2020-09-12 00:50:00 38.3 kg/m2 [facility] Index) [facility] (LUF/DAVID/SA) Pulse Rate 2020-08-22 03:16:00 100 /min [facility] (LUF/DAVID/SA) O2% BldC Oximetry 2020-08-22 03:16:00 95 % On license of [facility] (LUF/DAVID/SA) BP Systolic 2020-08-22 03:16:00 129 mm[Hg] [facility] (LUF/DA[facility]ID/SA) BP Diastolic 2020-08-22 03:16:00 88 mm[Hg] [facility] (LUF/DAVID/SA) Body Temperature 2020-08-22 01:35:00 98.4 [degF] On license of [facility] (LUF/DAVID/SA) Respiratory Rate 2020-08-22 01:35:00 20 /min On license of [facility] (F/DAVID/SA) Height 2020-08-22 01:35:00 64 [in_i] [facility] (LUF/DAVID/SA) Weight 2020-08-22 01:35:00 102 kg [facility] (F/DAVID/SA) BMI (Body Mass 2020-08-22 01:35:00 38.8 kg/m2 [facility]) [facility] (LUF/DAVID/SA) Pulse Rate 2020-08-06 03:31:00 83 /min [facility] (LUF/[facility]VID/SA) O2% BldC Oximetry 2020-08-06 03:31:00 96 % On license of [facility] (LUF/DAVID/SA) BP Systolic 2020-08-06 03:31:00 127 mm[Hg] [facility] (LUF/DA[facility]ID/SA) BP Diastolic 2020-08-06 03:31:00 82 mm[Hg] [facility] (LUF/[facility]ID/SA) Body Temperature 2020-08-06 01:45:00 98 [degF] On license of [facility] (LUF/DAVID/SA) Respiratory Rate 2020-08-06 01:45:00 20 /min On license of [facility] (LUF/[facility]ID/SA) Height 2020-08-06 01:39:00 66 [in_i] [facility] (F/DAVID/SA) Weight 2020-08-06 01:39:00 104.2 kg [facility] (LUF/DAVID/SA) BMI (Body Mass 2020-08-06 01:39:00 37.3 kg/m2 [facility] (LUF/DAVID/SA) Pulse Rate 2020-07-19 11:16:00 67 /min [facility] (F/DAVID/SA) O2% BldC Oximetry 2020-07-19 11:16:00 94 % On license of [facility] (LUF/DAVID/SA) BP Systolic 2020-07-19 11:16:00 101 mm[Hg] [facility] (LUF/DAVID/SA) BP Diastolic 2020-07-19 11:16:00 63 mm[Hg] [facility] (LUF/DAVID/SA) Body Temperature 2020-07-19 07:50:00 98 [degF] On license of [facility] (LUF/DAVID/SA) Respiratory Rate 2020-07-19 07:50:00 18 /min On license of [facility] (F/DAVID/SA) Weight 2020-07-19 07:50:00 100 kg [facility] (LUF/DAVID/SA) Heart Rate 2020-07-05 04:46:00 80 /min [facility] (LUF/[facility]ID/SA) Respiratory Rate 2020-07-05 04:46:00 15 /min On license of [facility] (LUF/[facility]ID/SA) BP Systolic 2020-07-05 04:46:00 134 mm[Hg] [facility] (LUF/DAVID/SA) BP Diastolic 2020-07-05 04:46:00 60 mm[Hg] [facility] (LUF/DA[facility]ID/SA) Body Temperature 2020-07-05 02:57:00 98 [degF] On license of [facility] (LUF/[facility]ID/SA) Pulse Rate 2020-07-05 02:57:00 82 /min [facility] (LUF/[facility]) O2% BldC Oximetry 2020-07-05 02:57:00 99 % On license of [facility] (LUF/[facility]ID/SA) Height 2020-07-05 02:50:00 65 [in_i] [facility] (LUF/DAVID/SA) Weight 2020-07-05 02:50:00 102.1 kg [facility] (LUF/DAVID/SA) BMI (Body Mass 2020-07-05 02:50:00 37.5 kg/m2 [facility] (LUF/DAVID/SA) Body Temperature 2020-06-07 13:38:00 98.5 [degF] On license of [facility] (LUF/DAVID/SA) Pulse Rate 2020-06-07 13:38:00 95 /min [facility] (LUF/DA[facility]ID/SA) Respiratory Rate 2020-06-07 13:38:00 20 /min On license of [facility] (LUF/DAVID/SA) O2% BldC Oximetry 2020-06-07 13:38:00 97 % On license of [facility] (LUF/DAVID/SA) BP Systolic 2020-06-07 13:38:00 129 mm[Hg] [facility] (LUF/DAVID/SA) BP Diastolic 2020-06-07 13:38:00 73 mm[Hg] [facility] (LUF/DAVID/SA) Height 2020-06-07 13:38:00 64 [in_i] [facility] (LUF/DAVID/SA) Weight 2020-06-07 13:38:00 99.79 kg [facility] (LUF/DAVID/SA) BMI (Body Mass 2020-06-07 13:38:00 38 kg/m2 [facility] Index) [facility] (LUF/DAVID/SA) Body Temperature 2020-05-31 09:45:00 99.6 [degF] On license of [facility] (LUF/DAVID/SA) Pulse Rate 2020-05-31 09:45:00 86 /min [facility] (LUF/DAVID/SA) Respiratory Rate 2020-05-31 09:45:00 18 /min On license of [facility] (F/DAVID/SA) O2% BldC Oximetry 2020-05-31 09:45:00 98 % On license of [facility] (LUF/DAVID/SA) BP Systolic 2020-05-31 09:45:00 118 mm[Hg] [facility] (LUF/DAVID/SA) BP Diastolic 2020-05-31 09:45:00 78 mm[Hg] [facility] (LUF/DAVID/SA) Height 2020-05-31 09:45:00 64 [in_i] [facility] (LUF/DAVID/SA) Weight 2020-05-31 09:45:00 99.79 kg [facility] (LUF/DAVID/SA) BMI (Body Mass 2020-05-31 09:45:00 38 kg/m2 [facility]) [facility] (LUF/DAVID/SA) Heart Rate 2020-04-25 20:01:00 69 /min [facility] (LUF/DAVID/SA) Pulse Rate 2020-04-25 20:01:00 71 /min [facility] (LUF/DAVID/SA) Respiratory Rate 2020-04-25 20:01:00 18 /min On license of [facility] (LUF/DAVID/SA) O2% BldC Oximetry 2020-04-25 20:01:00 100 % On license of [facility] (LUF/DAVID/SA) BP Systolic 2020-04-25 20:01:00 126 mm[Hg] [facility] (LUF/DAVID/SA) BP Diastolic 2020-04-25 20:01:00 86 mm[Hg] [facility] (LUF/DAVID/SA) Body Temperature 2020-04-25 16:50:00 98.4 [degF] On license of [facility] (LUF/DAVID/SA) Height 2020-04-25 16:50:00 64 [in_i] [facility] (LUF/DAVID/SA) Weight 2020-04-25 16:50:00 220 [lb_av] [facility] (LUF/DAVID/SA) BMI (Body Mass 2020-04-25 16:50:00 38 kg/m2 [facility] Index) [facility] (LUF/DAVID/SA) Heart Rate 2020-03-20 18:18:00 112 /min [facility] (LUF/DAVID/SA) Pulse Rate 2020-03-20 18:16:00 93 /min [facility] (LUF/DAVID/SA) O2% BldC Oximetry 2020-03-20 18:16:00 92 % On license of [facility] (LUF/DAVID/SA) BP Systolic 2020-03-20 18:16:00 127 mm[Hg] [facility] (LUF/DAVID/SA) BP Diastolic 2020-03-20 18:16:00 85 mm[Hg] [facility] (LUF/DAVID/SA) Body Temperature 2020-03-20 17:17:00 99.2 [degF] On license of [facility] (LUF/DAVID/SA) Respiratory Rate 2020-03-20 17:17:00 19 /min On license of [facility] (LUF/DAVID/SA) Height 2020-03-20 17:17:00 64 [in_i] [facility] (LUF/DAVID/SA) Weight 2020-03-20 17:17:00 106.9 kg [facility] (LUF/DAVID/SA) BMI (Body Mass 2020-03-20 17:17:00 40.7 kg/m2 [facility] Index) [facility] (LUF/DAVID/SA) Respiratory Rate 2020-03-17 10:33:00 16 /min On license of [facility] (LUF/DAVID/SA) Body Temperature 2020-03-17 07:54:00 97.9 [degF] On license of [facility] (LUF/DAVID/SA) Pulse Rate 2020-03-17 07:54:00 83 /min [facility] (LUF/DAVID/SA) O2% BldC Oximetry 2020-03-17 07:54:00 96 % On license of [facility] (LUF/DAVID/SA) BP Systolic 2020-03-17 07:54:00 107 mm[Hg] [facility] (LUF/DAVID/SA) BP Diastolic 2020-03-17 07:54:00 75 mm[Hg] [facility] (LUF/DAVID/SA) Weight 2020-03-17 00:09:00 105.6 kg [facility] (LUF/DAVID/SA) Heart Rate 2020-03-13 15:46:00 81 /min [facility] (LUF/[facility]ID/SA) Height 2020-03-13 15:31:00 64 [in_i] [facility] (LUF/DAVID/SA) Body Temperature 2020-03-02 15:20:00 98.6 [degF] On license of [facility] (LUF/DAVID/SA) Pulse Rate 2020-03-02 15:20:00 86 /min [facility] (LUF/[facility]ID/SA) Respiratory Rate 2020-03-02 15:20:00 18 /min On license of [facility] (LUF/DAVID/SA) O2% BldC Oximetry 2020-03-02 15:20:00 99 % On license of [facility] (LUF/DAVID/SA) BP Systolic 2020-03-02 15:20:00 131 mm[Hg] [facility] (LUF/DAVID/SA) BP Diastolic 2020-03-02 15:20:00 85 mm[Hg] [facility] (LUF/DAVID/SA) Height 2020-03-01 10:54:00 64 [in_i] [facility] (LUF/DAVID/SA) Weight 2020-03-01 10:54:00 102 kg [facility] (LUF/DAVID/SA) BMI (Body Mass 2020-03-01 10:54:00 38.8 kg/m2 [facility] (LUF/DAVID/SA) Respiratory Rate 2020-02-27 07:47:00 16 /min On license of [facility] (LUF/DAVID/SA) Body Temperature 2020-02-27 07:32:00 98.2 [degF] On license of [facility] (LUF/[facility]ID/[place]) Pulse Rate 2020-02-27 07:32:00 94 /min [facility] (LUF/[facility]ID/[place]) O2% BldC Oximetry 2020-02-27 07:32:00 95 % On license of [facility] (LUF/[facility]ID/[place]) BP Systolic 2020-02-27 07:32:00 111 mm[Hg] [facility] (LUF/[facility]ID/[facility]) BP Diastolic 2020-02-27 07:32:00 56 mm[Hg] [facility] (LUF/[facility]ID/[place]) Weight 2020-02-26 02:09:00 99.6 kg [facility] (LUF/[facility]ID/[facility]) Height 2020-02-25 10:03:00 64 [in_i] [facility] (LUF/[facility]ID/[facility]) Body Temperature 2020-02-25 00:52:00 97.9 [degF] On license of [facility] (LUF/[facility]ID/[place]) Pulse Rate 2020-02-25 00:52:00 118 /min [facility] (LUF/[facility]ID/[place]) Respiratory Rate 2020-02-25 00:52:00 18 /min On license of [facility] (LUF/[facility]/[place]) O2% BldC Oximetry 2020-02-25 00:52:00 97 % On license of [facility] (LUF/[facility]/[place]) BP Systolic 2020-02-25 00:52:00 133 mm[Hg] [facility] (LUF/[facility]ID/[facility]) BP Diastolic 2020-02-25 00:52:00 67 mm[Hg] [facility] (LUF/[facility]ID/[facility]) Height 2020-02-25 00:47:00 64 [in_i] [facility] (LUF/[facility]) Weight 2020-02-25 00:47:00 103.4 kg [facility] ([facility]F/[facility]) BMI (Body Mass 2020-02-25 00:47:00 39.3 kg/m2 [facility] (LUF/[facility]ID/[facility]) Body Temperature 2020-01-25 11:32:00 98.4 [degF] On license of [facility] (LUF/[facility]ID/[facility]) Pulse Rate 2020-01-25 11:32:00 81 /min [facility] (LUF/[facility]ID/[facility]) Respiratory Rate 2020-01-25 11:32:00 14 /min On license of [facility] (LUF/[facility]/[place]) O2% BldC Oximetry 2020-01-25 11:32:00 98 % On license of [facility] (LUF/[facility]ID/[facility]) BP Systolic 2020-01-25 11:32:00 139 mm[Hg] [facility] (LUF/DAVID/SA) BP Diastolic 2020-01-25 11:32:00 89 mm[Hg] [facility] (LUF/DAVID/SA) Height 2020-01-25 11:32:00 64 [in_i] [facility] (LUF/DAVID/SA) Weight 2020-01-25 11:32:00 100.5 kg [facility] (LUF/DAVID/SA) BMI (Body Mass 2020-01-25 11:32:00 38.2 kg/m2 [facility] (LUF/DAVID/SA) Heart Rate 2019-11-24 04:16:00 84 /min [facility] (LUF/DAVID/SA) Pulse Rate 2019-11-24 04:16:00 90 /min [facility] (LUF/DAVID/SA) Respiratory Rate 2019-11-24 04:16:00 26 /min On license of [facility] (LUF/DAVID/SA) O2% BldC Oximetry 2019-11-24 04:16:00 98 % On license of [facility] (LUF/DAVID/SA) BP Systolic 2019-11-24 04:16:00 106 mm[Hg] [facility] (LUF/DAVID/SA) BP Diastolic 2019-11-24 04:16:00 69 mm[Hg] [facility] (LUF/DAVID/SA) Body Temperature 2019-11-24 00:54:00 98.4 [degF] On license of [facility] (LUF/DAVID/SA) Height 2019-11-24 00:49:00 65 [in_i] [facility] (LUF/DAVID/SA) Weight 2019-11-24 00:49:00 103 kg [facility] (LUF/DAVID/SA) BMI (Body Mass 2019-11-24 00:49:00 37.8 kg/m2 [facility] Index) [facility] (LUF/DAVID/SA) Heart Rate 2019-10-07 22:54:00 83 /min [facility] (LUF/DAVID/SA) Respiratory Rate 2019-10-07 22:54:00 14 /min On license of [facility] (LUF/DAVID/SA) Pulse Rate 2019-10-07 22:31:00 89 /min [facility] (LUF/DAVID/SA) O2% BldC Oximetry 2019-10-07 22:31:00 97 % On license of [facility] (LUF/DAVID/SA) BP Systolic 2019-10-07 21:16:00 127 mm[Hg] [facility] (LUF/DAVID/SA) BP Diastolic 2019-10-07 21:16:00 85 mm[Hg] [facility] (LUF/DAVID/SA) Height 2019-10-07 20:41:00 64 [in_i] [facility] (LUF/DAVID/SA) Weight 2019-10-07 20:41:00 100.2 kg [facility] (LUF/DAVID/SA) BMI (Body Mass 2019-10-07 20:41:00 38.1 kg/m2 [facility] Index) [facility] (LUF/DAVID/SA) Pulse Rate 2019-09-20 04:16:00 96 /min [facility] (LUF/DAVID/SA) Respiratory Rate 2019-09-20 04:16:00 9 /min On license of [facility] (F/DAVID/SA) O2% BldC Oximetry 2019-09-20 04:16:00 96 % On license of [facility] (LUF/DAVID/SA) BP Systolic 2019-09-20 04:16:00 97 mm[Hg] [facility] (LUF/DAVID/SA) BP Diastolic 2019-09-20 04:16:00 76 mm[Hg] [facility] (LUF/DAVID/SA) Body Temperature 2019-09-20 00:44:00 98 [degF] On license of [facility] (LUF/DAVID/SA) Height 2019-09-20 00:39:00 65 [in_i] [facility] (LUF/DAVID/SA) Weight 2019-09-20 00:39:00 101.9 kg [facility] (LUF/DAVID/SA) BMI (Body Mass 2019-09-20 00:39:00 37.4 kg/m2 [facility] Index) [facility] (LUF/DVAID/SA) Pulse Rate 2019-08-17 04:31:00 81 /min [facility] (LUF/DAVID/SA) Respiratory Rate 2019-08-17 04:31:00 13 /min On license of [facility] (LUF/DAVID/SA) O2% BldC Oximetry 2019-08-17 04:31:00 97 % On license of [facility] (LUF/DAVID/SA) BP Systolic 2019-08-17 04:31:00 136 mm[Hg] [facility] (LUF/DAVID/SA) BP Diastolic 2019-08-17 04:31:00 75 mm[Hg] [facility] (LUF/DAVID/SA) Body Temperature 2019-08-17 02:23:00 97.6 [degF] On license of [facility] (LUF/DAVID/SA) Height 2019-08-17 02:19:00 64 [in_i] [facility] (LUF/DAVID/SA) Weight 2019-08-17 02:19:00 100.6 kg [facility] (LUF/DAVID/SA) BMI (Body Mass 2019-08-17 02:19:00 38.3 kg/m2 [facility] Index) [facility] (LUF/DAVID/SA) Pulse Rate 2018-12-07 02:33:00 79 /min [facility] (LUF/DAVID/SA) Respiratory Rate 2018-12-07 02:33:00 15 /min On license of [facility] (LUF/DAVID/SA) O2% BldC Oximetry 2018-12-07 02:33:00 96 % On license of [facility] (LUF/DAVID/SA) BP Systolic 2018-12-07 02:33:00 120 mm[Hg] [facility] (LUF/DAVID/SA) BP Diastolic 2018-12-07 02:33:00 76 mm[Hg] [facility] (LUF/DAVID/SA) Body Temperature 2018-12-07 01:10:00 98.2 F On license of [facility] (LUF/DAVID/SA) Height 2018-12-07 01:10:00 64 in [facility] (LUF/DAVID/SA) Weight Measured 2018-12-07 01:10:00 218.25 lbs [facility] (LUF/DAVID/SA) BMI (Body Mass 2018-12-07 01:10:00 37.7 kg/m2 [facility]) [facility] (LUF/DAVID/SA) Pulse Rate 2018-09-30 19:40:00 70 /min [facility] (LUF/DAVID/SA) Respiratory Rate 2018-09-30 19:40:00 21 /min On license of [facility] (F/DAVID/SA) O2% BldC Oximetry 2018-09-30 19:40:00 100 % On license of [facility] (LUF/DAVID/SA) BP Systolic 2018-09-30 19:40:00 124 mm[Hg] [facility] (LUF/DAVID/SA) BP Diastolic 2018-09-30 19:40:00 88 mm[Hg] [facility] (LUF/DAVID/SA) Body Temperature 2018-09-30 19:23:00 99.3 F On license of [facility] (F/DAVID/SA) Height 2018-09-30 19:23:00 66 in [facility] (F/DAVID/SA) Weight Measured 2018-09-30 19:23:00 212.52 lbs [facility] S [facility] (LUF/DAVID/SA) BMI (Body Mass 2018-09-30 19:23:00 34.5 kg/m2 [facility]) [facility] (LUF/DAVID/SA) Body Temperature 2018-09-01 13:59:00 98 F On license of [facility] (F/DAVID/SA) Pulse Rate 2018-09-01 12:15:00 74 /min [facility] (LUF/DAVID/SA) Respiratory Rate 2018-09-01 12:15:00 16 /min On license of [facility] (LUF/DAVID/SA) O2% BldC Oximetry 2018-09-01 12:15:00 98 % On license of [facility] (LUF/DAVID/SA) BP Systolic 2018-09-01 12:15:00 131 mm[Hg] [facility] (LUF/DAVID/SA) BP Diastolic 2018-09-01 12:15:00 78 mm[Hg] [facility] (LUF/DAVID/SA) Height 2018-09-01 09:16:00 64 in [facility] (LUF/DAVID/SA) Weight Measured 2018-09-01 09:16:00 214.24 lbs [facility] (LUF/DAVID/SA) BMI (Body Mass 2018-09-01 09:16:00 37 kg/m2 [facility]) [facility] (LUF/DAVID/SA) Body Temperature 2018-05-13 10:58:00 99 F On license of [facility] (LUF/DAVID/SA) Pulse Rate 2018-05-13 10:58:00 97 /min [facility] (LUF/DAVID/SA) Respiratory Rate 2018-05-13 10:58:00 18 /min On license of [facility] (LUF/DAVID/SA) O2% BldC Oximetry 2018-05-13 10:58:00 98 % On license of [facility] (LUF/DAVID/SA) BP Systolic 2018-05-13 10:58:00 131 mm[Hg] [facility] (LUF/DAVID/SA) BP Diastolic 2018-05-13 10:58:00 88 mm[Hg] [facility] (LUF/DAVID/SA) Height 2018-05-13 10:58:00 64 in [facility] (F/DAVID/SA) Weight Measured 2018-05-13 10:58:00 207.23 lbs [facility] Abhinav [facility] (LUF/DAVID/SA) BMI (Body Mass 2018-05-13 10:58:00 35.8 [facility]) [facility] (LUF/DAVID/SA) Body Temperature 2017-12-24 08:04:00 98.7 F On license of [facility] (LUF/DAVID/SA) Respiratory Rate 2017-12-24 08:04:00 18 /min On license of [facility] (F/DAVID/SA) O2% BldC Oximetry 2017-12-24 08:04:00 98 % On license of [facility] (LUF/DAVID/SA) BP Systolic 2017-12-24 08:04:00 126 mm[Hg] [facility] (F/DAVID/SA) BP Diastolic 2017-12-24 08:04:00 86 mm[Hg] [facility] (F/ADVID/SA) Weight Measured 2017-12-24 08:04:00 207.23 lbs [facility] (F/DAVID/SA) Body Temperature 2017-06-20 23:28:00 97.4 F On license of [facility] (F/DAVID/SA) Respiratory Rate 2017-06-20 23:28:00 20 /min On license of [facility] (F/DAVID/SA) O2% BldC Oximetry 2017-06-20 23:28:00 99 % On license of [facility] (F/DAVID/SA) BP Systolic 2017-06-20 23:28:00 107 mm[Hg] [facility] (F/DAVID/SA) BP Diastolic 2017-06-20 23:28:00 76 mm[Hg] [facility] (F/DAVID/SA) Height 2017-06-20 23:28:00 64 in [facility] (F/DAVID/SA) Weight Measured 2017-06-20 23:28:00 217.15 lbs [facility] (F/DAVID/SA) BMI (Body Mass 2017-06-20 23:28:00 37.5 [facility] (F/DAVID/SA) Procedures Procedure Date / Time Performing Clinician Source Performed POCT SARS-COV-2 ANTIGEN 2022-06-13 23:43:00 Magdalene Lucia [facility] ([facility] NOW) [facility] CT ABDOMEN PELVIS WO 2022-05-07 15:06:09 Ridge Pagan [facility] Branch BASIC METABOLIC PANEL (NA, 2022-05-07 14:20:00 Ridge Pagan [facility] K, CL, CO2, GLUCOSE, BUN, Medica l Branch CREATININE, CA) CBC WITH DIFF 2022-05-07 14:20:00 Ridge Pagan [facility] URINALYSIS 2022-05-07 14:20:00 Ridge Pagan [facility] CONSENT/REFUSAL FOR 2022-05-07 13:49:51 Doctor Unassigned, [facility] DIAGNOSIS AND TREATMENT [facility] CT ABDOMEN PELVIS WO 2022-02-19 15:49:34 Trice Harris [facility] CONTRAST [facility] Branch LIPASE 2022-02-19 14:26:00 Steven Trice [facility] COMP. METABOLIC PANEL 2022-02-19 14:26:00 Trice Harris [facility] ([id number]) [facility] CBC WITH DIFF 2022-02-19 14:26:00 Steven Trice [facility] URINALYSIS 2022-02-19 14:26:00 Steven [facility] CONSENT/REFUSAL FOR 2022-02-19 14:11:01 Doctor Unassigned, [facility] DIAGNOSIS AND TREATMENT [facility] POCT MOLECULAR FLU 2021-11-29 22:46:00 Ameena Preston [facility] INS INFUS DEV LT BASILIC 2020-03-15 00:00:[address] [facility] VN PERQ [facility] (LUF/DAVID/SA) ULTRASONOGRAPHY LT UP EXT 2020-03-15 00:00:[address] [facility]UID [facility] ([facility]DAVID/SA) ROBOTIC LAP LYSIS OF 2020-03-02 12:56:[address] [facility] ADHESIONS [facility] (LUF/DAVID/SA) LAPAROSCOPY ENTEROLYSIS 2020-03-02 00:00:[address] [facility] SEPARATE PROCEDU [facility] (LUF/DAVID/SA) COLONOSCOPY FLX DX W/COLLJ 2020-02-26 00:00:[address] [facility] SPEC WHEN PFR [facility] (LUF/DAVID/SA) ROBOTIC RIGHT OOPHORECTOMY 2019-03-21 17:09:[address] [facility] LUF (Right) [facility] (LUF/DAVID/SA) CYSTO RGP STENT PLACEMENT 2015-04-20 14:01:00 CH I [facility] (F/DAVID/SA) CYSTO RGP STENT PLACEMENT 2015-04-20 14:01:00 CH I [facility] (F/DAVID/SA) Hysterectomy On license of [facility] (F/DAVID/SA) Total thyroidectomy On license of [facility] (F/DAVID/SA) section On license of [facility] (F/DAVID/SA) ABDOMINAL ADHESIONS [facility] REMOVED [facility] (F/DAVID/SA) Extracorporeal shockwave [facility] lithotripsy [facility] (F/DAVID/SA) MULTIPLE CYSTECTOMYS DONE On license of [facility] (F/DAVID/SA) MULTIPLE CYSTECTOMYS DONE On license of [facility] (F/DAVID/SA) ABDOMINAL ADHESIONS [facility] REMOVED [facility] (F/DAVID/SA) Appendectomy On license of [facility] (F/DAVID/SA) Plan of Care Planned Activity Planned [...] Facility Department ID 2021-07-27 Outpatient Nba, STLMLC [facility] Common 08:27:02 Josué 0127 [facility] 2021-07-26 Outpatient Nba, [facility] Common 14:20:31 Josué 1203 [facility] 2021-07-26 Outpatient Nba, STLMLC [facility] Common 14:05:52 Josué 1027 [facility] 2021-07-26 Outpatient Nba, STLMLC [facility] Common 12:01:28 Josué 1103 [facility] 2021-07-26 Outpatient Nba, STLMLC [facility] Common 11:56:42 Josué 1019 [facility] 2021-07-26 Outpatient Nba, STLMLC [facility] Common 11:49:38 Josué 0928 [facility] 2021-07-[address] [facility] Common 11:48:02 Josué 0922 [facility] 2021-07-[address] [facility] Common 11:47:47 Josué 0921 [facility] 2021-07-26 Outpatient Nba [facility] Common 11:42:15 Josué 09Faustino [facility] 2021-07-26 Outpatient Nba [facility] Common 11:32:09 Josué Lomeli20 [facility] 2022-06-17 2022-06-17 Outpatient FOG_Ingrid_Wa AOSM AOSM [id number] Adelia 00:00:00 00:00:00 Jhon [id number] [facility] 2022-06-13 2022-06-13 Outpatient R KHARI [facility] [id number] [facility] 17:20:00 17:41:53 [facility] 2022-06-13 2022-06-13 Urgent Khari Magdalene [facility] [id number] Univers 17:20:00 17:41:53 Care Unknown, Attending [facility] [id number] ity of [place] [id number] Jacques as SUE?BLEA [phone] [address] MEDICAL OFFICE [facility] 2022-06-13 2022-06-13 Telephone Khari [facility] [id number] Univers 00:00:00 00:00:00 [facility] [id number] it y of [place] [id number] Jacques as SUE?BLEA [phone] [address] MEDICAL OFFICE [facility] 2022-05-13 2022-05-13 Outpatient FOG_Dunn_Wa AOSM AOSM [id number] Adelia 00:00:00 00:00:00 Jhon [id number] [facility] 2022-05-07 2022-05-07 Emergency X EJ [facility] ERT [id number] Univers 07:57:00 09:45:00 RIDGE [facility] 2022-05-07 2022-05-07 Emergency [facility] [id number] Univers 07:57:00 09:45:00 Ridge GAONA [id number] i ty of [facility] [id number] [facility] [phone] [address] 2022-05-07 2022-05-07 Outpatient FOG_Ingrid_Wa AOSM AOSM [id number] Adelia 00:00:00 00:00:00 Jhon [id number] [facility]op e [facility] e 2022-04-23 2022-04-23 Emergency EM PACO Quintero [id number] [facility] 09:39:00 10:55:00 Truman [facility] 2022-02-19 2022-02-19 Emergency X STEVEN [facility] ERT [id number] Univers 09:15:00 11:05:00 TRICE [facility] 2022-02-19 2022-02-19 Emergency [facility] [id number] Univers 09:15:00 11:05:00 [facility] [id number] i ty of [facility] [id number] [facility] [phone] [address] 2021-11-29 2021-11-29 [facility] [id number] Univers 17:40:00 18:00:00 Care [facility] [id number] it y of [place] [id number] Jacques as SUE?BLEA [phone] Wa dical [address] MEDICAL OFFICE BUILDING 2021-11-29 2021-11-29 Outpatient Irwin PRESTON [facility] [id number] Univers 17:40:00 17:40:00 [facility] 2021-11-29 2021-11-29 [facility]patient [facility] [id number] Univers 17:40:00 17:40:00 AMEENA ity of [facility] 2021-10-26 2021-10-26 Office GEOVANI Blas, 1.2.840.1 [id number] Univers 09:45:00 10:47:06 Visit Praveen 38291.1.1 ity of 3.412.2.7 [place] .3.483118 .8 [facility] 2021-10-26 2021-10-26 Travel 1.2.840.1 [id number] [id number] Univers 00:00:00 00:00:00 74816.1.1 [id number] ity of 3.412.2.7 [place].3.698 [place] .3.386906 084.8 .8 [facility] 2021-10-15 2021-10-15 ROSEMARIE 1 SHAMAA, [facility] [id number] 22:25:00 22:45:00 CONSCIOUS EKTA [facility] [address] stefanie MEHTA (LUF/LI [address], V/SA) [place] [address] 2021-10-15 2021-10-15 Inpatient [facility] [id number] [facility] 00:[facility]:00 00:00:00 ALLOUEZ [id number] On license of [facility], [id number] Memor ia [address] [id number] stefanie ME[place]A (LUF/LI AVE, V/[place]) [place] [address] 2021-10-15 2021-10-15 Inpatient [facility] [id number] 00:00:00 00:00:00 ALLOUEZ [id number] On license of [facility], [id number] Memor ia [address] [id number] l [address] (LUF/LI AVE, V/[place]) [place] [address] 2021-08-29 2021-08-29 Outpatient Irwin CARRANZA, [facility] [id number] Univers 16:20:00 16:20:00 RANIA [facility] 2021-08-07 2021-08-07 Emergency EM Tyree, [facility] [id number] [facility] 09:36:00 12:55:00 Olga 19 [facility] [place] 2021-08-01 2021-08-02 Emergency X [facility] ERT [id number] Univers 22:00:00 01:17:00 LEANNE [facility] 2021-08-01 2021-08-02 Emergency [facility] [id number] Univers 22:00:00 01:17:00 Leanne [facility] [id number] i ty of [id number] [phone] [facility] 084 Branch 2021-06-28 2021-06-28 [facility]patient [facility] [id number] Univers 17:30:00 17:30:00 MAGDALENE [facility] 2021-06-22 2021-06-22 Letter REHAN Chaves [id number] [id number] Univers 00:00:00 00:00:00 (Out) Eve LEE [id number] it y of [facility] [id number] Jacques as [phone] [facility] [address]19 [place] 2021-06-22 2021-06-22 [facility] 1.2.840.114 [id number] Univers 00:00:00 00:00:00 [facility] [id number] it y of [place] 4.2.7.2.686 Jacques as SUE?BLEA [phone] [address] MEDICAL OFFICE BUILDING 2021-06-21 2021-06-21 Outpatient R TERE [facility] [id number] Univers 11:00:00 12:14:12 PATRICK [facility] 2021-06-21 2021-06-21 Urgent Patrick Carranza [facility] 1.2.840.114 [id number] Univers 11:00:00 11:20:00 Pratik Preston Ameena [facility] [id number] ity of [place] [id number] Jacques as SUE?BLEA [id number] [address] MEDICAL OFFICE BUILDING 2021-06-21 2021-06-21 Telephone Tere SRUTHIJADE 1.2.840.114 [id number] Univers 00:00:00 00:00:00 [facility] [id number] it y of [place] [id number] Jacques as SUE?BLEA [phone] [address] MEDICAL OFFICE [facility] 2021-06-21 2021-06-21 Letter Doctor REHAN 1.2.840.114 [id number] Univers 00:00:00 00:00:00 (Out) Unassigned, ROSA [id number] ity of [facility] 4.2.7.2.686 Jacques as [id number] [address] 2021-05-30 2021-05-30 (TEL) [facility] [id number] Co mmon 00:00:00 00:00:00 [facility] 2021-05-29 2021-05-29 (TEL) [facility] STLMLC [id number] Co mmon 00:00:00 00:00:00 [facility] 2021-04-26 2021-04-26 (TEL) [facility] STLMLC [id number] Co mmon 00:00:00 00:00:00 [facility] 2021-04-23 2021-04-[address] JANIAStefanie [facility] [id number] [facility] 00:46:00 02:08:00 Chin Dhaliwal ABDOMINAL Memori a PAIN l (LUF/LI V/SA) 2021-04-23 2021-04-23 Inpatient [facility] [place] [id number] [id number] [facility] 00:00:00 00:00:00 ALLOUEZ [id number] Gutierrez [facility], [id number] Memor ia [address] [id number] l [place] (LUF/LI A[address], V/SA) JULIÁN ROSA [address] 2021-04-23 2021-04-23 Inpatient [facility] [id number] 00:00:00 00:00:00 ALLOUEZ [id number] On license of [facility], [id number] Memor ia [address] [id number] l [place] (LUF/LI A[address], V/[place]) [place] [address] 2021-03-24 2021-03-24 ANXIETY 1 COTTON, [facility] [id number] [facility] [address] 10:25:00 12:27:00 DISORDER REHAN [facility] UNSPECIFIE [place], Memor ia D [address] (LUF/LI A[address], V/[place]) [place] [address] 2021-03-24 2021-03-24 Inpatient [facility] [id number] [facility] 00:[facility]:00 00:00:00 ALLOUEZ [id number] On license of [facility], [id number] Memor ia [address] [id number] l [place] (LUF/LI A[address], V/[place]) [place] [address] 2021-03-24 2021-03-24 Inpatient [facility] [id number] [facility] St 00:00:00 00:00:00 ALLOUEZ [id number] On license of [facility], [id number] Memor ia [address] [id number] l [place] ([address]F/[address], V/[place]) [place] [address] 2021-03-23 2021-03-23 Orders Nofies, 1.2.840.1 [id number] Univers 00:00:00 00:00:00 Only Viktoriya Charlton 10649.1.1 ity of 3.412.2.7 [place] .3.930893 .8 [facility] 2021-03-10 2021-03-10 UTI SITE E RODRICK, [facility] [id number] 10:29:00 13:50:00 [facility] [address] ([address]F/LI [address], V/[place]) [place] [address] 2021-03-10 2021-03-10 Inpatient [facility] [id number] [facility] 00:[facility]:00 00:00:00 ALLOUEZ [id number] On license of [facility], [id number] Memor ia [id number], V[address]) [place] [id number] 2021-03-10 2021-03-10 Inpatient [facility] [id number] [facility] 00:[facility]:00 00:00:00 ALLOUEZ [id number] On license of [facility], [id number] Memor ia [id number] ([address], V/[place]) [place] [id number] 2021-02-23 2021-02-23 RIGHT E [facility] [id number] 08:15:00 12:44:00 [facility] PAIN [address], V/SA) [place] [address] 2021-02-23 2021-02-23 Inpatient [facility] [id number] 00:00:00 00:00:00 ALLOUEZ [id number] On license of [facility], [id number] Memor ia [id number] ([address], V/SA) [place] [address] 2021-02-23 2021-02-23 Inpatient [facility] [id number] 00:00:00 00:00:00 ALLOUEZ [id number] On license of [facility], [id number] Memor ia [id number], V/SA) [place] [address] 2021-01-10 2021-01-10 RADU DYKES, [facility] [id number] 00:21:00 03:06:00 [facility] [address], V/SA) [place] [address] 2021-01-10 2021-01-10 Inpatient [facility] [id number] [facility] 00:00:00 00:00:00 ALLOUEZ [id number] On license of [facility], [id number] Memor ia [id number] [address] ([address], V/SA) [place] [id number] 2021-01-10 2021-01-10 Inpatient [facility] OF [facility] [id number]-[id number] [facility] 00:[facility]:00 00:00:00 ALLOUEZ [id number] On license of [facility], [id number] Memor ia [id number], V/SA) [place] [id number] 2020-12-27 2020-12-27 Emergency [facility] Zarina [id number] [address] [place] [address] 00:00:00 00:00:[address] 2020-12-22 2020-12-22 Outpatient 3 LONI MURILLO [facility] [id number] 09:00:00 09:00:00 SKYE [facility] l (LUF/LI V/SA) 2020-12-13 2020-12-13 Emergency EM [place], [facility] [id number] [facility] 01:53:00 06:36:[address] [place] [address] 2020-12-12 2020-12-12 RIGHT Jake COTTON, [facility] [id number] 12:33:00 14:00:00 [facility], Memoria PAIN [address] [place] ([address]F/LI A[address], V/SA) [place] [address] 2020-12-12 2020-12-12 Inpatient [facility] e2c0 cb47-b [facility] 00:[facility]:00 00:00:00 ALLOUEZ [id number]-[id number] On license of [facility], [id number] Memor ia [address] [id number] l [place] (LUF/LI A[address], V/SA) [place] [address] 2020-12-12 2020-12-12 Inpatient [facility] 43 f7fe-[address] 00:00:00 00:00:00 ALLOUEZ [id number] On license of [facility], [id number] Memor ia [address] 70ade3 l [place] (LUF/LI AVE, V/[place]) [place] [address] 2020-12-08 2020-12-08 UNSPECIFIE Jake SOTOMAYOR, [facility] [id number] [facility] 09:44:00 12:26:00 D WYATT [facility] [place] [address] (LUF/LI AVE, V/SA) [place] [address] 2020-12-08 2020-12-08 Inpatient [facility] 6a3f a794-[id number] [facility] 00:00:00 00:00:00 ALLOUEZ [id number] On license of [facility], [id number] Memor ia [address] [id number] l [place] (LUF/LI AVE, V/SA) [place] [address] 2020-11-25 2020-11-25 UNSPECIFIE [facility] [id number] [facility] [address] 00:13:00 00:30:00 D [facility], [facility] [place] a PAIN [address] (LUF/LI AVE, V/SA) [place] [address] 2020-11-25 2020-11-25 Inpatient [facility] 3041 db6a-[id number] [facility] 00:00:00 00:00:00 ALLOUEZ [id number] On license of [facility], [id number] Memor ia [address] [id number] l [place] (LUF/LI AVE, V/SA) [place] [address] 2020-11-25 2020-11-25 Inpatient [facility] a3eb ed11-a [facility] 00:[facility]:00 00:00:00 ALLOUEZ [id number] On license of [facility], [id number] Memor ia [address] [id number] l [place] (LUF/LI AVE, V/[place]) [place] [address] 2020-11-21 2020-11-21 ENDOMETRIO 1 [facility] [id number] [facility] [address] 07:14:00 09:53:00 SIS ALLOUEZ Olamidekes UNSPECIFIE [place], Memor ia D [address] ([address]F/LI [address], V/SA) [place] [address] 2020-11-21 2020-11-21 Inpatient [facility] [id number] [id number] 00:00:00 00:00:00 ALLOUEZ [id number] On license of [facility], [id number] Memor ia [address] [id number] l [place] (LUF/LI A[address], V/SA) [place] [address] 2020-11-21 2020-11-21 Inpatient [facility] 3b21 [id number] [facility] [address] 00:00:00 00:00:00 ALLOUEZ 30a-[id number] On license of [facility], [id number] Memor ia [address] [id number] l [place] (LUF/LI AVE, V/SA) [place], [place] [address] 2020-11-14 2020-11-[address] [facility] [id number] [facility] [address] 09:27:00 14:37:00 UNS [facility] WITHOUT Memoria BLEEDING l (LUF/LI V/SA) 2020-11-14 2020-11-14 Inpatient [facility] d4fe d3e2-[address] 00:00:00 00:00:00 ALLOUEZ 3cf-[id number] On license of [facility], [id number] Memor ia [address] [id number] l [place] (LUF/LI AVE, V/SA) [place] [address] 2020-11-14 2020-11-14 Inpatient [facility] 324e 65b9-b [facility] 00:00:00 00:00:00 ALLOUEZ [id number] On license of [facility], [id number] Memor ia [address] [id number] l [place] (LUF/LI AVE, V/SA) [place] [address] 2020-11-08 2020-11-08 OTHER E YURY, [facility] [id number] 08:04:00 13:13:00 CHRONIC [facility]IN [place], Memoria [address] (LUF/LI AVE, V/SA) [place] [address] 2020-11-08 2020-11-08 Inpatient [facility] 8079 b52c-c [facility] 00:00:00 00:00:00 ALLOUEZ [id number] On license of [facility], [id number] Memor ia [address] [id number] l [place] (LUF/LI AVE, V/SA) [place] [address] 2020-11-08 2020-11-08 Inpatient [facility] 0f07 dc59-[address] 00:00:00 00:00:00 ALLOUEZ [id number] On license of [facility], [id number] Memor ia [address] [id number] l [place] (LUF/LI AVE, V/SA) [place] [address] 2020-11-08 2020-11-08 Inpatient [facility] [id number] e14c-[address] [facility] [address] 00:00:00 00:00:00 ALLOUEZ [id number] On license of [facility], [id number] Memor ia [address] [id number] l [place] (LUF/LI AVE, V/SA) [place] [address] 2020-11-01 2020-11-01 AAKASH Joseph WANDA, [facility] [id number] [facility] [address] 00:27:00 03:55:00 WITH CLEMENT [facility], Memoria UNSPECIFIE [address] D [place] (LUF/LI AVE, V/SA) [place] [address] 2020-11-01 2020-11-01 Inpatient [facility] 1ec3 64c1-c [facility] 00:00:00 00:00:00 ALLOUEZ [id number] On license of [facility], [id number] Memor ia [address] [id number] l [place] (LUF/LI AVE, V/SA) [place] [address] 2020-11-01 2020-11-01 Inpatient [facility] 79c0 b023-[address] 00:00:00 00:00:00 ALLOUEZ [id number]-[id number] On license of [facility], [id number] Memor ia [address] [id number] l [place] (LUF/LI AVE, V/SA) [place] [address] 2020-10-04 2020-10-05 OTHER E RODRICK, [facility] [id number] 23:32:00 01:00:00 CHRONIC JUAN ALLOUEZ [facility] [place] [address] ([address]F/LI A[address], V/SA) [place] [address] 2020-10-04 2020-10-04 Inpatient [facility] b016 f3f5-a [facility] 00:00:00 00:00:00 ALLOUEZ [id number] On license of [facility], [id number] Memor ia [address] [id number] l [place] (LUF/LI AVE, V/SA) [place] [address] 2020-10-04 2020-10-04 Inpatient [facility] ea96 0c7a-[address] 00:00:00 00:00:00 ALLOUEZ 25c-4997-[id number] On license of [facility], [id number] Memor ia [address] [id number] l [place] (LUF/LI AVE, V/SA) [place] [address] 2020-09-18 2020-09-18 OTHER E [facility] [id number] 01:00:00 04:44:00 CHRONIC ALLOUEZ [facility]IN [place], [facility] [address] (LUF/LI A[address], V/SA) [facility] [place] [address] 2020-09-18 2020-09-18 Inpatient [facility] b80a 7ee5-[address] 00:00:00 00:00:00 ALLOUEZ [id number] On license of [facility], [id number] Memor ia [address] [id number] l [place] (LUF/LI AVE, V/SA) [place] [address] 2020-09-18 2020-09-18 Inpatient [facility] 1a33 0198-a [facility] 00:00:00 00:00:00 ALLOUEZ [id number] On license of [facility], [id number] Memor ia [address] [id number] l [place] ([address]F/LI A[address], V/SA) [place] [address] 2020-09-12 2020-09-12 ENDOMETRIO E SANANAVDEEP, [facility] [id number] [facility] 00:46:00 02:38:00 SIS [facility] UNSPECIFIE [place], Memor ia D [address] ([address]F/LI A[address], V/SA) [place] [address] 2020-09-12 2020-09-12 Inpatient [facility] 726d 153b-a [facility] 00:00:00 00:00:00 ALLOUEZ [id number]-[id number] On license of [facility], [id number] Memor ia [address] [id number] l [place] ([address]F/LI A[address], V/[place]) [place] [address] 2020-09-12 2020-09-12 Inpatient [facility] 9a2d b59c-c [facility] 00:[facility]:00 00:00:00 ALLOUEZ [id number] On license of [facility], [id number] Memor ia [address] 655cce l [place] ([address]F/LI A[address], V/[place]) [place] [address] 2020-08-22 2020-08-22 OTHER E SANANAVDEEP, [facility] [id number] 01:13:00 03:24:00 CHRONIC [facility] PAIN [place], Memoria [address] ([address]F/LI A[address], V/[place]) [place] [address] 2020-08-22 2020-08-22 Inpatient [facility] 7a1d d2a9-[address] [facility] 00:00:00 00:00:00 ALLOUEZ [id number] On license of [facility], [id number] Memor ia [address] [id number] l [place] ([address]F/LI A[address], V/[place]) [place] [address] 2020-08-22 2020-08-22 Inpatient [facility] [id number] 2542-f [facility] 00:00:00 00:00:00 ALLOUEZ 72a-[id number] On license of [facility], [id number] Memor ia [address] [id number] l [place] ([address]F/LI A[address], V/[place]) [place] [address] 2020-08-06 2020-08-06 Inpatient Jake MENSAH, [facility] [id number] [facility] 01:21:00 03:35:00 [facility] [address] ([address]F/LI A[address], V/SA) [place] [address] 2020-08-06 2020-08-06 Inpatient [facility] 07b7 067c-a [facility] 00:00:00 00:00:00 ALLOUEZ [id number] On license of [facility], [id number] Memor ia [address] [id number] l [place] (LUF/LI AVE, V/SA) [place] [address] 2020-07-19 2020-07-19 RIGHT Jake COTTON, [facility] [place] [id number] [facility] [address] 07:50:00 11:20:00 [facility] PAIN [address] ([address]F/LI AVE, V/SA) [place] [address] 2020-07-19 2020-07-19 Inpatient [facility] 625d 6050-c [facility] 00:00:00 00:00:00 ALLOUEZ [id number]-[id number] On license of [facility], [id number] Memor ia [address] [id number] l [place] (LUF/LI AVE, V/SA) [place] [address] 2020-07-19 2020-07-19 Inpatient [facility] [id number] [id number] 00:00:00 00:00:00 ALLOUEZ [id number] On license of [facility], [id number] Memor ia [address] [id number] l [place] ([address]F/LI A[address], V/SA) [place] [address] 2020-07-05 2020-07-05 OTHER Jake MENSAH, [facility] [id number] [facility] [address] 02:42:00 05:00:00 CHRONIC JUAN [facility], Memoria [address] ([address], V/SA) [place] [address] 2020-07-05 2020-07-05 Inpatient [facility] 525e 4189-f [facility] 00:00:00 00:00:00 ALLOUEZ [id number]-[id number] On license of [facility], [id number] Memor ia [address] 7ec68b l [place] ([address]F/LI A[address], V/SA) [place] [address] 2020-07-05 2020-07-05 Inpatient [facility] c54b 2c2e-e [facility] 00:00:00 00:00:00 ALLOUEZ [id number] On license of [facility], [id number] Memor ia [address] [id number] l [place] (LUF/LI A[address], V/SA) [place] [address] 2020-06-10 2020-06-10 [facility] [id number] Co mmon 00:00:00 00:00:00 [facility] 2020-06-07 2020-06-07 Inpatient 1 COTTON, [facility] [place] [id number] [facility] [address] 12:56:00 19:04:00 [facility] [address] ([address], V/SA) [place] [address] 2020-06-07 2020-06-07 Inpatient [facility] 5603 9727-e [facility] 00:00:00 00:00:00 ALLOUEZ [id number] On license of [facility], [id number] Memor ia [address] [id number] l [place] ([address]F/LI A[address], V/SA) [place] [address] 2020-05-31 2020-05-31 Inpatient E COTTON, [facility] [place] [id number] [facility] [address] 09:31:00 14:13:00 [facility] [address] ([address]F/LI A[address], V/SA) [place] [address] 2020-05-10 2020-05-10 Outpatient STLMLC STLMLC [id number] Common 00:00:00 00:00:00 [facility] 2020-05-09 2020-05-09 Outpatient STLMLC STLMLC [id number] Common 00:00:00 00:00:00 [facility] 2020-05-05 2020-05-05 Outpatient STLMLC STLMLC [id number] Common 00:00:00 00:00:00 [facility] 2020-05-02 2020-05-02 Outpatient STLMLC STLMLC [id number] Common 00:00:00 00:00:00 [facility] 2020-05-02 2020-05-02 Outpatient STLMLC STLMLC [id number] Common 00:00:00 00:00:00 [facility] 2020-04-29 2020-04-29 Outpatient STLMLC STLMLC [id number] Common 00:00:00 00:00:00 [facility] 2020-04-25 2020-04-25 LEFT LOWER E [facility] [id number] 16:46:00 21:30:00 [facility] [address] ([address]F/LI A[address], V/SA) [place] [address] 2020-04-22 2020-04-22 Outpatient STLMLC STLMLC [id number] Common 00:00:00 00:00:00 [facility] 2020-04-20 2020-04-20 PROC&TX [facility] [id number] 15:39:00 16:03:00 NOT [facility] OUT PT [address] [place] (LUF/LI A[address], V/SA) [place] [address] 2020-04-20 2020-04-20 Outpatient STLMLC STLMLC [id number] Common 00:00:00 00:00:00 [facility] 2020-04-20 2020-04-20 Outpatient STLMLC STLMLC [id number] Common 00:00:00 00:00:00 [facility] 2020-04-15 2020-04-15 Outpatient STLMLC STLMLC [id number] Common 00:00:00 00:00:00 [facility] 2020-04-13 2020-04-13 Outpatient STLMLC STLMLC [id number] Common 00:00:00 00:00:00 [facility] 2020-04-12 2020-04-12 Outpatient STLMLC STLMLC [id number] Common 00:00:00 00:00:00 [facility] 2020-04-11 2020-04-11 Outpatient STLMLC STLMLC [id number] Common 00:00:00 00:00:00 [facility] 2020-04-08 2020-04-08 Outpatient STLMLC STLMLC [id number] Common 00:00:00 00:00:00 [facility] 2020-04-06 2020-04-06 Outpatient STLMLC STLMLC [id number] Common 00:00:00 00:00:00 [facility] 2020-04-04 2020-04-04 Outpatient STLMLC STLMLC [id number] Common 00:00:00 00:00:00 [facility] 2020-03-31 2020-03-31 Outpatient STLMLC STLMLC [id number] Common 00:00:00 00:00:00 [facility] 2020-03-29 2020-03-29 Outpatient GEOVANI BLAS MDA MDA [id number] MD 00:00:00 00:00:00 PRAVEEN payton 2020-03-29 2020-03-29 Outpatient STLMLC STLMLC [id number] Common 00:00:00 00:00:00 [facility] 2020-03-28 2020-03-28 Outpatient STLMLC STLMLC [id number] Common 00:00:00 00:00:00 [facility] 2020-03-22 2020-03-22 Outpatient STLMLC STLMLC [id number] Common 00:00:00 00:00:00 [facility] 2020-03-21 2020-03-21 Outpatient STLMLC STLMLC [id number] Common 00:00:00 00:00:00 [facility] 2020-03-20 2020-03-20 FEDE COTTON, [facility] [place] [id number] [facility] 17:08:00 22:56:00 ABDOMINAL REHAN [facility] UNSPECIFIE [address] [place] (LUF/LI A[address], V/SA) [place] [address] 2020-03-14 2020-03-17 CELLULITIS E TRUX, [facility] [place] [id number] 14:54:00 11:30:00 OF CONGREGATION [facility] s ABDOMINAL [place], [facility] [place] a WALL [address] ([address]F/LI [address], V/SA) [place] [address] 2020-03-03 2020-03-03 [facility] [id number] Common 13:33:00 13:33:[address] [facility] 2020-03-02 2020-03-02 FE RYAN WOLFE, [facility] [place] [id number] 05:58:00 15:35:00 PERITON LIZBETH [facility] POSTINFECT [address] stefanie [address] (LUF/LI AVE, V/[place]) [place] [address] 2020-03-02 2020-03-02 Outpatient STLMLC STLMLC [id number] Common 00:00:00 00:00:00 [facility] 2020-03-01 2020-03-01 [facility] [id number] Common 09:15:00 09:15:00 [facility] 2020-02-29 2020-02-29 Outpatient [facility] [id number] Common 09:30:00 09:30:00 [facility] 2020-02-25 2020-02-27 FEDE COTTON, [facility] [place] [id number] [facility] 13:21:00 12:09:00 ABDOMINAL REHAN [facility] UNSPECIFIE [address] ([address]F/LI A[address], V/SA) [place] [address] 2020-02-25 2020-02-25 UNSPECIFIE E RODRICK, [facility] [id number] 00:40:00 05:00:00 D JUAN [facility]AL [place] [address] ([address]F/LI A[address], V/SA) [facility] [place] [address] 2020-01-25 2020-01-25 LOW BACK 1 COTTON, [facility] [id number] 11:28:00 13:15:00 [facility] [address] ([address]F/LI [address], V/SA) [place] [address] 2020-01-18 2020-01-18 Outpatient [facility] [id number] Common 11:45:00 11:45:00 [facility] 2019-12-09 2019-12-09 OTHER E [facility] [id number] [facility] [address] 03:03:00 05:08:00 CHRONIC [facility] [address] ([address]F/LI [address], V/SA) [place] [address] 2019-11-24 2019-11-24 UNSPECIFIE E [facility] [place] [address] [id number] [facility] [address] 00:31:00 05:30:00 D [facility]OM[place]AL [place], [facility] [address] ([address]F/LI [place], V/[place]) [place] [address] 2019-10-07 2019-10-07 RIGHT 1 COTTON, [facility] [place] [id number] 20:35:00 23:10:00 LOWER [facility] PAIN [address] ([address]F/LI [address], V/[place]) [place] [address] 2019-09-20 2019-09-20 RIGHT 1 COTTON, [facility] [id number] 00:33:00 04:23:[address] [facility] PAIN [address] ([address]F/LI [place], V/[place]) [place] [address] 2019-08-17 2019-08-17 UNSPECIFIE 1 TRUX, [facility] [id number] [facility] [address] 02:18:00 04:45:00 D [place] Luke s A[facility]AL [place], [facility] [address] ([address]/LI A[address], V/SA) [place], [place] [address] 2019-04-22 2019-04-22 [facility] [id number] Common 12:03:00 12:03:00 [facility] 2019-04-14 2019-04-14 Outpatient [facility] [id number] Common 16:12:00 16:12:00 [facility] 2019-04-06 2019-04-06 [facility] [id number] Common 12:16:00 12:16:00 [facility] 2019-03-31 2019-03-31 [facility] [id number] Common 14:00:00 14:00:00 [facility] 2018-12-07 2018-12-07 UNSPECIFIE 1 QUINTIN BRITO [facility] [id number] [facility] 01:06:00 04:45:00 D OVARIAN ALLOUEZ Luke s CYST RIGHT [facility] ia SIDE [address] ([address]F/LI [address], V/[place]) [place] [address] 2018-10-29 2018-10-29 N-PRSS CHR JAY, [facility] [id number] [facility] 06:59:00 23:59:00 ULCR SKIN MIKY ALLOUEZ [facility] [address] ([address]F/LI [address], V/[place]) [place] [address] 2018-10-22 2018-10-22 N-PRSS CHR JAY, [facility] [id number] [facility] 07:20:00 23:59:00 ULCR SKIN MIKY ALLOUEZ Luke s OTH NECR [facility] [address], V/SA) [place] [address] 2018-10-15 2018-10-15 N-PRSS CHR O BLAKESTAChin, [facility] [id number] [facility] 07:[facility]00 23:59:00 ULCR SKIN MIKY [facility] s OTH [facility]CR [place] [address], V[address]) [facility] [place] [address] 2018-09-30 2018-10-01 INFCT FOL 1 SHABNAM, [facility] [id number] [facility] St 18:46:00 01:05:00 PRC SUPF DIMAS [facility] SRG [place], [facility] SIT INIT [address], V/SA) [place] [address] 2018-09-01 2018-09-01 OTH 1 WANDA, [facility] [place] [id number] [facility] 09:12:00 14:00:00 NONINFL CLEMENT [facility] D/O OVARY [place] TUBE&BRD [address], V/SA) [place] [address] 2018-05-13 2018-05-13 Inpatient 1 WANDA, [facility] [id number] [facility] [address] 10:52:00 13:46:00 CLEMENT [facility] [address], V/SA) [place] [address] 2017-12-24 2017-12-24 UNSPECIFIE 1 QUINTIN BRITO [facility] [id number] [facility] St 07:51:00 13:52:00 D OVARIAN [facility] s CYST RIGHT [place] SIDE [address], V/SA) [place] [address] 2017-06-20 2017-06-21 HYDRONPHRO 1 RODRICK, [facility] [id number] [facility] 23:01:00 03:55:00 S JUAN [facility] RENL&URETR [place] L CALCUL [address], V/SA) [place] [address] 2017-05-13 2017-05-13 OTHER 3 MERLE, [facility] [id number] 15:40:00 23:59:00 FATIGUE ASA [facility], [facility] [address], V/[place]) [place] [address] Results Test Description Test Time Test Comments Results Result Comments Source POCT SARS-COV-2 ANTIGEN (BINAX NOW) 2022-06-13 23:43:00 Test Item Value Reference Range Interpretation Comme nts POCT SARS-COV-2 ANTIGEN (test code = 54168-9) Positive Not Dete cted A On board controls acceptable with C Line (test code = 3574) Yes Lab Interpretation (test code = 09274-9) Abnormal [facility]- XR SHOULDER 2 + V [id number] 16:42:00 [facility] 1985 Sex: F Patient Name: LAUREN BETH Unit No: [id number] EXAMS: CPT CODE: [id number] XR SHOULDER 2 + V [place] 19977 Left shoulder 3 views COMMENT: There is no evidence for fracture or subluxation. No focal bony lesionsare seen. at 1642 Reported and signed by: Angelo Hardin MD CC: Truman Quintero MD Technologist: Jeannette Garcia RT.(R) Transcribed D/ (1642) t.[email or web address].L [facility] NAME: LAUREN BETH [address] [facility] PHYS:Truman Alfaro MD : 1985 AGE: 36 SEX: F [place], [place] [address] LOC: JOHNNIE PHONE #: [phone] EXAM DATE: 04/23/2022 STATUS: DEP ER FAX #: [phone] RAD #: D/C DTPAGE 1 Signed Report Patient Name: LAUREN BETH Unit No: [id number] EXAMS: CPT CODE: [id number] XR SHOULDER 2 + [place] [address] (Continued) Orig Print D/T: S: 04/23/2022 (1645) [facility] NAME: LAUREN BETH [address] [facility] PHYS: Truman Alfaro MD : 1985 AGE: 36 SEX: F [place], [place] [address] LOC: JOHNNIE PHONE #: [phone] EXAM DATE: 04/23/2022 STATUS: DEP ER FAX #: [phone] RAD #: D/C DT PAGE 2 Signed ReportCOMP. METABOLIC PANEL (41318)2022-02-19 14:56:05 Test Item Value Reference Range Interpretation Comments NA (test code = 137 mmol/L 135-145 6767549165) K (test code = 4.2 mmol/L 3.5-5 9206889548) CL (test code = 108 mmol/L 98-108 7731355955) CO2 TOTAL (test code = 19 mmol/L 23-31 L 7192776279) AGAP (test code = 2-16 6013060053) BUN (test code = 14 mg/dL 7-23 0494974562) GLUCOSE (test code = 133 mg/dL 70-110 H 2397418326) CREATININE (test code = 0.56 mg/dL 0.5-1.04 5585495018) TOTAL BILI (test code = 0.4 mg/dL 0.1-1.9 5043315710) CALCIUM (test code = 8.9 mg/dL 8.6-10.6 8767419028) T PROTEIN (test code = 6.5 g/dL 6.3-8.2 6452848106) ALBUMIN (test code = 4.0 g/dL 3.5-5 6261608164) ALK PHOS (test code = 84 U/L 34-122 3064597126) ALTv (test code = 23 U/L 5-35 1742-6) AST(SGOT) (test code = 24 U/L 13-40 9854304572) eGFR (test code = mL/min/1.73m2 7904390113) RENZO (test code = RENZO) Association of Glomerular Filtration Rate (GFR) and Staging of Kidney Disease* + --+ --+ ------+| GFR (mL/min/1.73 m2) ?| With Kidney Damage ?| ?Without Kidney Damage+ --------+ --------+ +| ?>90 ?| ?Stage one ?| ? Normal ?+ ---+ ---+ -------+| ?60-89 ?| ?Stage two ?| ? Decreased GFR ? + --+ --+ ------+| ?30-59 ?| ?Stage three ?| ? Stage three ? + --+ --+ ------+| ?15-29 ?| ?Stage four ? | ? Stage four ?+ ---+ ---+ -------+| ?<15 (or dialysis) ? ?| ?Stage five ? | ? Stage five ?+ ---+ ---+ -------+ *Each stage assumes the associated GFR [...] or abnormalities in imaging tests). Lab Interpretation Abnormal (test code = 38728-6) [facility] 14:55:44 Test Item Value Reference Range Interpretation Comments LIPASE (test code = 6959641758) 81 U/L 0-220 Lab Interpretation (test code = Normal 80583-2) [facility] CenterCB WITH [id number] 14:36:26 Test Item Value Reference Range Interpretation [...] RDW-SD (test code = 43.9 fL 39-49.9 85664-6) RDW-CV (test code = 13.7 % 12-15.5 788-0) PLT (test code = See_Comment [Automated 777-3) message] The sy stem which generated this result transmitted reference range : 166 - 358 10*3/ ?L. The reference r bruce was not used to interpret this result as normal/abnormal . MPV (test code = 8.5 fL 9.5-12.9 L 81641-3) NRBC/100 WBC (test See_Comment [Automat ed code = 1117586465) message] The system which generated this result transmitted reference range : 0.0 - 10.0 /100 WBCs. The refer ence range was not u sed to interpret th is result as normal/abnormal . NRBC x10^3 (test code See_Comment [Auto mated = 5372385664) message] The s ystem which generated this result transmitted reference range : 10*3/?L. The reference range was not used to interpret this result as normal/abnormal . GRAN MAT (NEUT) % 58.7 % (test code = 770-8) IMM GRAN % (test code 1.10 % = 1458222461) LYMPH % (test code = 31.6 % 736-9) MONO % (test code = 6.8 % 5905-5) EOS % (test code = 1.4 % 713-8) BASO % (test code = 0.4 % 706-2) GRAN MAT x10^3(ANC) 3.30 10*3/uL 1.88-7.09 (test code = 9998786129) IMM GRAN x10^3 (test 0.06 10*3/uL 0-0.06 code = 6477103543) LYMPH x10^3 (test code 1.77 10*3/uL 1.32-3.29 = 731-0) MONO x10^3 (test code 0.38 10*3/uL 0.33-0.92 = 742-7) EOS x10^3 (test code = 0.08 10*3/uL 0.03-0.39 711-2) BASO x10^3 (test code 0.01-0.07 = 704-7) Lab Interpretation Abnormal (test code = 65705-0) [facility] CenterPOCT [facility]LE[facility]ULAR [id number] 22:58:14 Test Item Value Reference Range Interpretation Comments POCT Molecular FluA (test code = Negative Negative 89188-4) POCT Molecular FluB (test code = Negative Negative 28772-0) Lab Interpretation (test code = Normal 63100-8) [facility] CenterHEPAT[facility] FUNCTION PANEL (LIVER)2021-10-16 13:57:00 Test [...] (test code = 0.2 mg/dl 0.0-1.1 IBIL) [id number] 13:57:00 Test Item Value Reference Range Interpretation Comments Lipase (test code = LIPA) 114 U/L 73-393 [facility] SERVICESLAMYLASE, [id number] 13:57:00 Test Item Value Reference Range Interpretation Comments Amylase (test code = AMYL) 51 U/L 25-115 [facility] [id number] 22:45:00 Test Item Value Reference Range Interpretation [...] code = CO2) 22.1 mmol/l 24.0-29.0 L [facility] CBC WITH AUTO [id number] 22:43:00 Test Item Value Reference Range Interpretation [...] = IG%) 0.2 % 0.0-0.4 STLMLHEPATIC FUNCTION [id number] 13:03:00 Test Item Value Reference Range Interpretation [...] 96 Unit/L 45-117 N code = ALKP) [id number] 13:03:00 Test Item Value Reference Range Interpretation Comments LIPASE (test code = LIP) 83 Unit/L 114-286 L BASIC METABOLIC [id number] 13:03:00 Test Item Value Reference Range Interpretation [...] 8.5-10.1 N UA RFLX MICR CULT IF [id number] 12:44:00 Test Item Value Reference Range Interpretation [...] OF URINE: CLEAN CATCH- CT ABD PELVIS W/[id number] 12:27:00 [facility] : 1985 Sex: F Name: LAUREN BETH [facility] : 1985 Age/S: 36 / F [address] Unit #: [id number]: Julián Holcomb [address] Phys: Marco Hilton NP Acct: [id number] Dis Date: Status: REG ER PHONE #:[phone] Exam Date: 08/07/20213 FAX #: Reason: LLQ ABD PAIN EXAMS: CPT: [id number] CT ABD PELVIS W/CONT 68111 EXAM: CT ABDOMEN AND PELVIS WITH CONTRAST. [...] BETH : 1985 Age/S: 36 / F [address] Unit #: [id number] Loc: Julián Holcomb [address] Phys: Marco Hilton NP Acct: [id number] Dis Date: Status: REG ER PHONE #: [phone] Exam Date: 08/07/2021 1223 FAX #: Reason: LLQ ABD PAIN EXAMS: CPT: [id number] CT ABD PELVIS W/CONT 84208 <Continued> at 1227 Reported and signed by: Alma Cartwright M.D. CC: Olga Clements DO; Marco Hilton NP Technologist:RT Fortino(R) CTDI: DLP: Trnscb Date/Time: 08/07/2021 (1227) VereniceMD16 Orig Print D/T: S: 08/07/2021 (0312) PAGE 2 Signed ReportCBC W/AUTO [id number] 12:23:00 Test Item Value Reference Range Interpretation [...] DIFF/SCN CRITERIA = MDIFF) CORONAVIRUS 2019 (IN [place])(3HR)2021-03-24 17:04:00 Test Item Value Reference Range Interpretation Comments FT (test code Negative Negative N The [employer] SARS -CoV-2 = COVID) (qualifier value) Reagents f or BD MAX System, the Bio Fire Covid-19, and t yuan Cepheid Covid-1 9 is for in vitro us e under FDA Emergency U se Authorization o nly. Each method abo ve is a rapid, real alice e PCR (RT-PCR) molecu lar test used for janel yuan qualitative det ection of nucleic acid from the SARS-CoV-2 in upper respirato ry specimens colle cted from individual s suspected of CO VID-19. For questions regarding your test results, please contact the [facility] at [phone]. [id number] 12:37:00 Test Item Value Reference Range Interpretation [...] 0.5-1.3 code = CREA) EGFR if >60 Egyptian (test code mL/min/1.73m\\ = EGFRAA) S\\2 EGFR if Non- >60 Estimate d Glomerular Egyptian (test code mL/min/1.73m\\ Filtrat ion Rate (eGFR) [...] of c hronic kidney failure. STLMLSTAT LAB [id number] 12:11:00 Test Item Value Reference Range Interpretation [...] after the clini felipa event. STLMLPT AND [id number] 12:09:00 Test Item Value Reference Range Interpretation Comments Protime (test code 9.5 seconds 9.5-12.1 = PT) INR (test code = 0.9 0.9-1.1 INR results are intended INR) ONLY to monitor Oral Anticoagulant t herapy in stablized patie nts. The INR Therapeutic Range is 2.0 - 3.0 Patie nts with a mechanical he art, the INR Range is 2. 5 - 3.5 [id number] 12:09:00 Test Item Value Reference Range Interpretation Comments aPTT (test code = PTT) 22.3 seconds 23.9-30.7 L STLMLSTAT LAB CBC WITH AUTO [id number] 11:57:00 Test Item Value Reference Range Interpretation [...] 0.3 % 0.0-0.4 STLMLXR CHEST AP/PA 1 [id number] 11:33:32 [facility])Name: LAUREN BETH : 1985 Sex: FProcedure: XR CHEST AP/PA 1 VIEWOrder Date: 03/24/2021 10:57 AMOrdering Provider: REHAN COTTONClinical Indication: [id number]: DyspneaComparison: September 30, 2018Findings:Cardiac size is normal.Pulmonary vasculature is normal.Mediastinal contour is normal.Aortic contour is normal.No acute infiltrates or effusions.There is no mass or pneumothorax.There is no evidence of active tuberculosis.There isno acute skeletal abnormality.Impression: Negative AP view of the chest.This final report was electronically signed by Dr Farzad Dewitt MD :28 AMDictated By: FARZAD DEWITTDate: :28STLMLCULTURE, [id number] 08:00:00Specimen: Urine SpecimensCollected: 03/10/2021 11:50 Status: Final [...] code = NEGATIVE NEGATIVE N UKET) Specific Harts 1.015 1.005-1.030 A (test code = USPGR) Blood (test code = NEGATIVE NEGATIVE N UBLD) PH (test code = UPH) 7.0 4.5-8.0 A Protein (test code = NEGATIVE NEGATIVE N UPROT) Urobilinogen (test 0.2 See_Comment N [Automat ed message] code = U UROB) The system [place] generated this result transmit michael reference range [...] SEEN A Epithelial (test code = NSE) [facility] CBC WITH AUTO [id number] 12:10:00 Test Item Value Reference Range Interpretation [...] code = IG%) 0.8 % 0.0-0.4 H [facility] LAB CHEM [id number] 12:08:00 Test Item Value Reference Range Interpretation [...] = CREA) 0.5 mg/dl 0.6-1.3 L STLMLCULTURE, [id number] 08:26:00Specimen: Urine SpecimensCollected: 02/23/2021 08:35 Status: Final Last Updated: 02/24/2021 08:26 CULTURE (Final) (Final) Many Mixed Body Gabriela Isolated No Pathogens IsolatedSTLMLCT ABDOMEN/PELVIS W/[id number] 11:40:43 [facility]/[place])Name: LAUREN BETH : 1985 Sex: FProcedure: CT ABDOMEN/PELVIS W/CONTRASTOrder date: 02/23/2021 10:08 AMOrdering Provider: REHAN Farrellinical Indication: [id number]: Right lower quadrant painComparison: November 14, 2020Technique: [...] MD 111:35 AMDictated By: WILEY VELÁZQUEZDate: 02/23/2021 11:[id number] 10:44:00 Test Item Value Reference Range Interpretation Comments Lipase (test code = LIPA) 86 U/L 73-393 STLMLURINALYSIS WITH [id number] 08:58:00 Test Item Value Reference Range Interpretation Comments Color (test code = Light-Yellow UCOLR) Clarity (test code = Clear UCLAR) Glucose (test code = NEGATIVE NEGATIVE N UGLUC) Bilirubin (test code NEGATIVE NEGATIVE N = UBILI) Ketones (test code = NEGATIVE NEGATIVE N UKET) Specific Harts 1.020 1.005-1.030 A (test code = USPGR) Blood (test code = NEGATIVE NEGATIVE N UBLD) PH (test code = UPH) 6.0 4.5-8.0 A Protein (test code = NEGATIVE NEGATIVE N UPROT) Urobilinogen (test 0.2 See_Comment N [Automat ed message] code = U UROB) The system [facility] generated this result transmit michael reference range [...] 41-50 0-10 A (test code = SQEP) [facility] CBC WITH AUTO [id number] 08:52:00 Test Item Value Reference Range Interpretation [...] (test code = IG%) 0.3 % 0.0-0.4 [facility] CHEM [id number] 08:52:00 Test Item Value Reference Range Interpretation [...] (test code = CREA) 0.6 mg/dl 0.6-1.3 [facility] CBC WITH AUTO [id number] 02:37:00 Test Item Value Reference Range Interpretation [...] A value of 55 was entered by [id number] on 01/10/2021 02:3 7 Lymphocytes (test 43 % 13-42 H No previou s value code = LYMPH) was reported. A value of 43 was entered by [id number] on 01/10/2021 02:3 7 Monocytes (test 1 % 4-14 L No previous value code = MONOS) was reported. A value of 1 was entered by [id number] on 01/10/2021 02:3 7 Basophils (test 1 % 0-1 No previous value code = BASO) was reported. A value of 1 was entered by [id number] on 01/10/2021 02:3 7 Normal Morphology Normal WBC RBC Normal RBC \\T\\ N No pre vious value (test code = NRCM) and Platelet WBC was repor michael. A Morphology Morphology,Normal value of N ormal WBC RBC and WBC RBC and Platelet Platelet Morphology Morphology was entered by [id number] on 01/10/2021 02:3 7 STLMLAMYLASE, [id number] 02:14:00 Test Item Value Reference Range Interpretation Comments Amylase (test code = AMYL) 46 U/L 25-115 [id number] 02:14:00 Test Item Value Reference Range Interpretation Comments Lipase (test code = LIPA) 115 U/L 73-393 STLMLURINALYSIS WITH [id number] 02:07:00 Test Item Value Reference Range Interpretation Comments Color (test code = Light-Yellow UCOLR) Clarity (test code = Cloudy UCLAR) Glucose (test code = NEGATIVE NEGATIVE N UGLUC) Bilirubin (test code NEGATIVE NEGATIVE N = UBILI) Ketones (test code = NEGATIVE NEGATIVE N UKET) Specific Harts 1.025 1.005-1.030 A (test code = USPGR) Blood (test code = NEGATIVE NEGATIVE N UBLD) PH (test code = UPH) 6.0 4.5-8.0 A Protein (test code = NEGATIVE NEGATIVE N UPROT) Urobilinogen (test 0.2 See_Comment N [Automat ed message] code = U UROB) The system [facility] generated this result transmit michael reference range [...] SEEN A Epithelial (test code = NSE) [facility] [id number] 01:50:00 Test Item Value Reference Range Interpretation [...] (test code = CREA) 0.6 mg/dl 0.6-1.3 STL- CT ABD PELVIS W/[id number] 03:46:00 [facility] Z[facility]an : 1985 Sex: F FAX: Annemarie Tesfaye [phone] [place]: St: REG Name: LAUREN BETH 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 One or more of the following do se reduction techniques were used: Automated exposure control, adjustment of the mA and/or kV according to patient size, and/or utilization of iterative reconstruction technique. Findings: LIVER: No significant findings. GALLBLADDER/BILIARY: Cholecystectomy. PANCREAS: No significant findings. SPLEEN:No significant findings. ADRENALS: No significant findings. KIDNEYS: [...] the stomach, cholecystectomy, appendectomy and hysterectomy. at 5400 Reported and signed by: Neo Hbuer MD PAGE 1 Signed Report (CONTINUED) FAX: Annemarie Tesfaye [phone] [place]: St: REG---- Name: LAUREN BETH 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 Acct: [id number] Dis Date: Status: REG ER PHONE #: [phone] Exam Date: 12/13/2020 0325 FAX #: [phone] Reason: DIFFUSE ABD PAIN WORSE RLQ, HX APPY, ROSE EXAMS: CPT CODE: [id number] CT ABD PELVIS W/CONT 89239 <Continued> CC: Annemarie Tesfaye [employer]LECTRICAL AND INSTRUMENT MECHANIC Technologist: PAMELA KRISHNAMURTHY; Jessi Guillory; JAIRO SANCHEZ JR Trnscrd Dt/Tm: 12/13/2020 (0346) VereniceMA50 Orig Print D/T: S: 12/13/2020 (8449 PAGE 2 Signed ReportCOMPREHENSIVE METABOLIC [id number] 03:32:00 Test Item Value Reference Range Interpretation [...] U/L 38-126 N (test code = ALKP) [id number] 03:32:00 Test Item Value Reference Range Interpretation Comments LIPASE (test code = LIP) 82 U/L 23-300 N BEDSIDE [id number] 03:24:00 Test Item Value Reference Range Interpretation Comments BEDSIDE CREATININE (test code = 0.60 mg/dL 0.51-1.19 N CREATBED) CBC W/AUTO [id number] 03:14:00 Test Item Value Reference Range Interpretation [...] 0.0-0.1 N UA RFLX MICR CULT IF [id number] 02:59:00 Test Item Value Reference Range Interpretation [...] OF URINE: VOIDEDSTAT LAB CBC WITH AUTO [id number] 15:12:00 Test Item Value Reference Range Interpretation [...] A value of 63 was entered by SBBoedo [email or web address] on 12/12/2020 15:12 Bands (test code [...] A value of 3 was entered by [facility] 82 on 12/12/2020 15:12 [facility] LAB CHEM [id number] 14:08:00 Test Item Value Reference Range Interpretation [...] 0.5 mg/dl 0.6-1.3 L [facility] LAB URINALYSIS WITHOUT [id number] 12:08:00 Test Item Value Reference Range Interpretation Comments Color (test code = Light-Yellow UCOLR) Clarity (test code = Cloudy UCLAR) Glucose (test code = NEGATIVE NEGATIVE N UGLUC) Bilirubin (test code NEGATIVE NEGATIVE N = UBILI) Ketones (test code = NEGATIVE NEGATIVE N UKET) Specific Harts 1.015 1.005-1.030 A (test code = USPGR) Blood (test code = NEGATIVE NEGATIVE N UBLD) PH (test code = UPH) 7.0 4.5-8.0 A Protein (test code = NEGATIVE NEGATIVE N UPROT) Urobilinogen (test 0.2 See_Comment N [Automat ed message] code = U UROB) The system [facility] generated this result transmit michael reference range : 0.2. The refere nce range was not u sed to interpret th is result as normal/abnormal . Nitrite (test code = NEGATIVE NEGATIVE N UNITR) Leukocyte Esterase NEGATIVE NEGATIVE N (test code = ULEUK) [facility])2020-11-21 08:43:00 Test [...] code = 0.4 mg/dl 0.0-1.1 IBIL) [facility]kinURINALYSIS WITH [id number] 08:31:00 Test Item Value Reference Range Interpretation Comments Color (test code = Light-Yellow UCOLR) Clarity (test code = Clear UCLAR) Glucose (test code = NEGATIVE NEGATIVE N UGLUC) Bilirubin (test code NEGATIVE NEGATIVE N = UBILI) Ketones (test code = NEGATIVE NEGATIVE N UKET) Specific Harts 1.020 1.005-1.030 A (test code = USPGR) Blood (test code = NEGATIVE NEGATIVE N UBLD) PH (test code = UPH) 6.5 4.5-8.0 A Protein (test code = NEGATIVE NEGATIVE N UPROT) Urobilinogen (test 0.2 See_Comment N [Automat ed message] code = U UROB) The system [facility] generated this result transmit michael reference range [...] (test code = SQEP) [facility] LAB CHEM [id number] 08:27:00 Test Item Value Reference Range Interpretation [...] 0.5 mg/dl 0.6-1.3 L [facility] LAB CBC WITH AUTO [id number] 08:26:00 Test Item Value Reference Range Interpretation [...] code = IG%) 0.4 % 0.0-0.4 [facility]-LufkinXR ABDOMEN 2 VIEWS FLAT / [id number] 08:18:50[facility] ([facility]//)Name: LAUREN BETH : 1985 Sex: FProcedure: XR ABDOMEN 2 VIEWS FLAT / UPRIGHTOrder Date: 11/21/2020 7:43 AMOrdering Provider: REHAN Farrellinical Indication: [id number]: Abdominal painComparison: Nov 14 2020Findings:Bowel gas pattern is non-obstructive. No pneumoperitoneum.There is moderate volume stool burden.Surgical clips in the right upper quadrant of the abdomen.Impression:Nonobstructive bowel gas pattern.This final reportwas electronically signed by Dr Silver Benitez MD :13 AMDictated By: Chante BENITEZ: 11/21/2020 08:13[facility] ABDOMEN/PELVIS W/O CONTRAST 2020-11-14 14:11:31 [facility] ([facility]/)Name: DIEUDONNE BETHDAVIDE CARRILLO : 1985 Sex: FProcedure: CT ABDOMEN/PELVIS W/O CONTRASTOrder Date: 11/14/2020 1:22 PMOrdering Provider: BILLY ACOSTA .Clinical Indication: [id number]: Right flank painComparison: Renal ultrasound November 08, [...] MD :05 PMDictated By: FARZAD DEWITTDate: 11/14/2020 14:05[facility] LAB , [id number] 13:31:00 Test Item Value Reference Range Interpretation Comments (Urine) (test code = Negative PREGU) ONLY AVAILABLE 8A-12[facility] LAB CHEM [id number] 11:09:00 Test Item Value Reference Range Interpretation [...] 0.5 mg/dl 0.6-1.3 L [facility] LAB URINALYSIS WITHOUT [id number] 11:08:00 Test Item Value Reference Range Interpretation Comments Color (test code = Yellow Lt. Yellow A UCOLR) Clarity (test code = Clear UCLAR) Glucose (test code = Negative Negative N UGLUC) Bilirubin (test code Negative Negative N = UBILI) Ketones (test code = Negative Negative N UKET) Specific Harts 1.025 1.005-1.030 A (test code = USPGR) Blood (test code = Trace-intact Negative A UBLD) PH (test code = UPH) 6.0 4.5-8.0 A Protein (test code = Negative Negative N UPROT) Urobilinogen (test 0.2 See_Comment N [Automat ed message] code = U UROB) The system [facility] generated this result transmit michael reference range : 0.2. The refere nce range was not u sed to interpret th is result as normal/abnormal . Nitrite (test code = Negative Negative N UNITR) Leukocyte Esterase Negative Negative N (test code = ULEUK) [facility] LAB CBC WITH AUTO [id number] 11:05:00 Test Item Value Reference Range Interpretation [...] code = IG%) 0.4 % 0.0-0.4 [facility] CenterCULTURE, [id number] 08:43:00Specimen: Urine SpecimensCollected: 11/08/2020 09:59 Status: Final Last Updated: 11/09/2020 08:43 CULTURE (Final) (Final) Few Mixed Body Gabriela Isolated No Pathogens IsolatedAsc[facility] HospitalLufkinUS RENAL & BLADDER (KIDNEYS)2020-11-08 12:00:28[facility]/[place])Name: LAUREN BETH : 1985 Sex: [...] AMDictated By: GLORY BENITEZKDate: 11/08/2020 11:54[facility] WITH MICROSCOPIC 2020-11-08 10:58:00 Test Item Value Reference Range Interpretation Comments Color (test code = Yellow UCOLR) Clarity (test code = Clear UCLAR) Glucose (test code = NEGATIVE NEGATIVE N UGLUC) Bilirubin (test code = NEGATIVE NEGATIVE N UBILI) Ketones (test code = NEGATIVE NEGATIVE N UKET) Specific Harts (test 1.030 1.005-1.030 A code = USPGR) Blood (test code = NEGATIVE NEGATIVE N UBLD) PH (test code = UPH) 6.0 4.5-8.0 A Protein (test code = NEGATIVE NEGATIVE N UPROT) Urobilinogen (test code 0.2 See_Comment N [Au tomated message] = U UROB) The system [employer] generated this result transmitted ref erence range: [...] 0-10 A (test code = SQEP) [facility]-fkinCULTURE, [id number] 08:13:00ER 17Specimen: Urine SpecimensCollected: 11/01/2020 01:10 Status: Final Last Updated: 11/02/2020 08:13 (1) ER 17 CULTURE (Final) (Final) Few Mixed Body Gabriela Isolated No Pathogens IsolatedFroedtert [facility]-LufkinXR ABD SERIES W/PA CXR 2020-11-01 03:48:37 [facility])Name: LAUREN BETH : 1985 Sex: FPROCEDURE INFORMATION:Exam: [...] CDT.Dictated By: FILIPPO RAMOSDate: 11/01/2020 03:48[facility]ZHEPATIC FUNCTION PANEL (LIVER)2020-11-01 02:14:00 Test Item Value [...] code = 0.1 mg/dl 0.0-1.1 IBIL) [address] LAB CHEM [id number] 01:57:00 Test Item Value Reference Range Interpretation [...] = CREA) 0.5 mg/dl 0.6-1.3 L ER [address] [place] [address]-LufkinURINALYSIS WITH [id number] 01:56:00 Test Item Value Reference Range Interpretation Comments Color (test code = Light-Yellow UCOLR) Clarity (test code = Clear UCLAR) Glucose (test code = 50 NEGATIVE A UGLUC) Bilirubin (test code NEGATIVE NEGATIVE N = UBILI) Ketones (test code = NEGATIVE NEGATIVE N UKET) Specific Harts 1.025 1.005-1.030 A (test code = USPGR) Blood (test code = NEGATIVE NEGATIVE N UBLD) PH (test code = UPH) 6.0 4.5-8.0 A Protein (test code = TRACE NEGATIVE A UPROT) Urobilinogen (test 0.2 See_Comment N [Automat ed message] code = U UROB) The system [place] generated this result transmit michael reference range [...] 0-10 A (test code = SQEP) ER [address] [place], [place] [address]fkinSTAT LAB CBC WITH AUTO [id number] 01:55:00 Test Item Value Reference Range Interpretation [...] code = IG%) 0.4 % 0.0-0.[address] [place], [place] [address]HEPATIC FUNCTION PANEL (LIVER)2020-10-05 01:26:00 Test Item Value [...] code = 0.1 mg/dl 0.0-1.1 IBIL) er [address] [place], [place] [address]Zrprvf-[id number] 01:26:00 Test Item Value Reference Range Interpretation Comments Lipase (test code = LIPA) 154 U/L 73-[address] [place] [address] LAB CHEM [id number] 01:15:00 Test Item Value Reference Range Interpretation [...] code = CREA) 0.6 mg/dl 0.6-1.[address] [place] [address] LAB , [id number] 01:14:00 Test Item Value Reference Range Interpretation Comments (Urine) (test code = Negative PREGU) er [address] [place] [address] LAB CBC WITH AUTO [id number] 01:13:00 Test Item Value Reference Range Interpretation [...] = IG%) 0.9 % 0.0-0.4 H er [address] [place], [place] [address]Oryiyf-[id number] 04:21:00 Test Item Value Reference Range Interpretation Comments Lipase (test code = LIPA) 146 U/L 73-393 [facility] CenterHEPAT[facility] FUNCTION PANEL (LIVER)2020-09-18 04:21:00 Test [...] code = 0.1 mg/dl 0.0-1.1 IBIL) [facility] CenterAMYLASE, [id number] 04:21:00 Test Item Value Reference Range Interpretation Comments Amylase (test code = AMYL) 47 U/L 25-115 [facility] CenterURINALYSIS WITH [id number] 03:06:00 Test Item Value Reference Range Interpretation Comments Color (test code = Light-Yellow UCOLR) Clarity (test code = Clear UCLAR) Glucose (test code = NEGATIVE NEGATIVE N UGLUC) Bilirubin (test code NEGATIVE NEGATIVE N = UBILI) Ketones (test code = TRACE NEGATIVE A UKET) Specific Harts 1.025 1.005-1.030 A (test code = USPGR) Blood (test code = NEGATIVE NEGATIVE N UBLD) PH (test code = UPH) 5.5 4.5-8.0 A Protein (test code = NEGATIVE NEGATIVE N UPROT) Urobilinogen (test 0.2 See_Comment N [Automat ed message] code = U UROB) The system [facility] generated this result transmit michael reference range [...] A Epithelial (test code = NSE) [facility] LAB CHEM [id number] 02:51:00 Test Item Value Reference Range Interpretation [...] code = CREA) 0.6 mg/dl 0.6-1.3 [facility] LAB CBC WITH AUTO [id number] 02:50:00 Test Item Value Reference Range Interpretation [...] = IG%) 0.5 % 0.0-0.4 H [facility]-[place]XR ABDOMEN 1 VIEW (KUB)2020-09-12 01:51:21 [facility] ([facility]/[place])Name: LAUREN BETH : 1985 Sex: [...] CDT.Dictated By: CELESTINO ALLENDate: 09/12/2020 01:50[facility] [place] [facility] CBC WITH AUTO [id number] 01:29:00 Test Item Value Reference Range Interpretation [...] IG%) 0.4 % 0.0-0.4 [facility] LAB CHEM [id number] 01:28:00 Test Item Value Reference Range Interpretation [...] (test code = CREA) 0.6 mg/dl 0.6-1.3 [facility] centerURINALYSIS WITH [id number] 03:04:00 Test Item Value Reference Range Interpretation Comments Color (test code = Yellow UCOLR) Clarity (test code = Clear UCLAR) Glucose (test code = 100 NEGATIVE A UGLUC) Bilirubin (test code = NEGATIVE NEGATIVE N UBILI) Ketones (test code = TRACE NEGATIVE A UKET) Specific Harts (test >=1.030 1.005-1.030 A code = USPGR) Blood (test code = NEGATIVE NEGATIVE N UBLD) PH (test code = UPH) 5.5 4.5-8.0 A Protein (test code = NEGATIVE NEGATIVE N UPROT) Urobilinogen (test code 0.2 See_Comment N [Au tomated message] = U UROB) The system [employer] generated this result transmitted ref erence range: [...] = 3+ None Seen,Trace A UBACT) [facility]-[id number] 03:01:00 Test Item Value Reference Range Interpretation [...] ( 4 - SerumAlbumin)] EGFR if >60 Egyptian (test code mL/min/1.73m\\ = EGFRAA) S\\2 EGFR if Non- >60 Estimate d Glomerular Egyptian (test code mL/min/1.73m\\ Filtrat ion Rate (eGFR) [...] management of c hronic kidney failure. [facility] CenterQvycoc-[id number] 03:01:00 Test Item Value Reference Range Interpretation Comments Lipase (test code = LIPA) 145 U/L 73-393 [facility] LAB TEST, Serum Qualitative 2020-08-22 02:48:00 Test Item Value Reference Range Interpretation Comments (Serum) (test code = Negative PREGS) [facility] LAB CBC WITH AUTO [id number] 02:28:00 Test Item Value Reference Range Interpretation [...] = IG%) 0.5 % 0.0-0.4 H [facility] CenterHEPATIC FUNCTION PANEL (LIVER)2020-08-06 02:59:00 Test [...] code = 0.1 mg/dl 0.0-1.1 IBIL) ER [address] [place], [place] [address]Odidhi-[id number] 02:59:00 Test Item Value Reference Range Interpretation Comments Lipase (test code = LIPA) 167 U/L 73-[address] [place] [address]-LufkinURINALYSIS WITH [id number] 02:48:00 Test Item Value Reference Range Interpretation Comments Color (test code = UCOLR) Yellow Clarity (test code = UCLAR) Clear Glucose (test code = UGLUC) NEGATIVE NEGATIVE N Bilirubin (test code = UBILI) NEGATIVE NEGATIVE N Ketones (test code = UKET) NEGATIVE NEGATIVE N Specific Harts (test code = >=1.030 1.005-1.030 A USPGR) [...] = UBACT) 4+ None Seen,Trace A ER [address] [place] [address]-[place]kinCT ABDOMEN/PELVIS W/O [id number] 02:34:52ER 16 R/O KIDNEY STONE [facility] ([facility]/[place])Name: LAUREN BETH : [id number] Sex: FPROCEDURE INFORMATION:Exam: CT Abdomen And Pelvis [...] 2:34 AM CDT.Dictated By: HOLLIS FERRERADate: 08/06/2020 02:34[facility]ERLY [facility] LAB CHEM 8 2020-08-06 02:29:00 Test Item [...] code = CREA) 0.4 mg/dl 0.6-1.[address] LAB CBC WITH AUTO [id number] 02:29:00 Test Item Value Reference Range Interpretation [...] = IG%) 0.7 % 0.0-0.4 H ER [address] [place], [place] [address]Pusdsi-[id number] 09:31:00 Test Item Value Reference Range Interpretation Comments Lipase (test code = LIPA) 117 U/L 73-393 [facility] CenterHEPATIC FUNCTION PANEL (LIVER)2020-07-19 09:31:00 Test [...] code = 0.3 mg/dl 0.0-1.1 IBIL) [facility]-[place]XR ABDOMEN 2 VIEWS FLAT / [id number] 09:22:50[facility] ([facility]/[place]/[place])Name: LAUREN BETH : [id number] Sex: FProcedure: XR ABDOMEN 2 VIEWS FLAT / UPRIGHTOrder Date: 07/19/2020 8:40 AMOrdering Provider: REHAN COTTON .Clinical Indication: [id number]: Abdominal painComparison: July 05, 2020Findings:Postoperative change consisting [...] MD :17 AMDictated By: FARZAD DEWITTDate: 07/19/2020 09:17MM OF [facility] LAB CHEM [id number] 09:10:00 Test Item Value Reference Range Interpretation [...] 0.5 mg/dl 0.6-1.3 L [facility] LAB CBC WITH AUTO [id number] 09:09:00 Test Item Value Reference Range Interpretation [...] 0.7 % 0.0-0.4 H [facility] LAB URINALYSIS WITHOUT [id number] 09:08:00 Test Item Value Reference Range Interpretation Comments Color (test code = UCOLR) Yellow Lt. Yellow A Clarity (test code = UCLAR) Clear Glucose (test code = UGLUC) Negative Negative N Bilirubin (test code = UBILI) Negative Negative N Ketones (test code = UKET) Negative Negative N Specific Harts (test code = USPGR) >=1.030 1.005-1.030 A Blood (test code = UBLD) Negative Negative N PH (test code = UPH) 6.0 4.5-8.0 A Protein (test code = UPROT) Negative Negative N Urobilinogen (test code = U UROB) 0.2 >0.2 N Nitrite (test code = UNITR) Negative Negative N Leukocyte Esterase (test code = Negative Negative N ULEUK) [facility]-fkinCULTURE, [id number] 08:00:00Specimen: Urine SpecimensCollected: 07/05/2020 03:00 Status: Final Last Updated: 07/07/2020 08:00 CULTURE (Final) (Final) No Growth After 48 HoursF[facility]-LukinXR ABDOMEN 1 VIEW (KUB)2020-07-05 04:07:04 [facility] ([facility]/)Name: LAUREN BETH : [id number] Sex: FPROCEDURE INFORMATION:Exam: XR Abdomen, 1 ViewExam [...] 4:06 AM CDT.Dictated By: OSKAR CRANEte: 07/05/2020 04:06[facility]ERLY [facility] LAB , [id number] 03:54:00 Test Item Value Reference Range Interpretation Comments (Urine) (test code = Negative PREGU) [facility] LAB CHEM [id number] 03:53:00 Test Item Value Reference Range Interpretation [...] 0.5 mg/dl 0.6-1.3 L [facility] LAB CBC WITH AUTO [id number] 03:51:00 Test Item Value Reference Range Interpretation [...] (test code = IG%) 0.4 % 0.0-0.4 [facility] CenterkinURINALYSIS WITH [id number] 03:33:00 Test Item Value Reference Range Interpretation Comments Color (test code = UCOLR) Yellow Clarity (test code = UCLAR) Clear Glucose (test code = UGLUC) NEGATIVE NEGATIVE N Bilirubin (test code = UBILI) Small NEGATIVE A Ketones (test code = UKET) TRACE NEGATIVE A Specific Harts (test code = USPGR) 1.020 1.005-1.030 A [...] = UBACT) Trace None Seen,Trace N [facility]-[place]kinCT ABDOMEN/PELVIS W/[id number] 16:44:35 [facility] ([facility]/[place])Name: LAUREN BETH : [id number] Sex: FProcedure: CT ABDOMEN/PELVIS W/CONTRASTOrder date: 06/07/2020 3:47 PMOrdering Provider: REHAN Farrellinical Indication: [id number]: Left flank painComparison: 06/07/20Technique: Multiple axial helical [...] PMDictated By: WILEY VELÁZQUEZDate: 06/07/2020 16:38[facility] WITH [id number] 15:22:00 Test Item Value Reference Range Interpretation Comments Color (test code = UCOLR) Yellow Clarity (test code = UCLAR) Clear Glucose (test code = UGLUC) NEGATIVE NEGATIVE N Bilirubin (test code = UBILI) NEGATIVE NEGATIVE N Ketones (test code = UKET) NEGATIVE NEGATIVE N Specific Harts (test code = USPGR) 1.020 1.005-1.030 A [...] Trace None Seen,Trace N [facility] LAB CHEM [id number] 15:10:00 Test Item Value Reference Range Interpretation [...] 0.4 mg/dl 0.6-1.3 L [facility] LAB CBC WITH AUTO [id number] 15:08:00 Test Item Value Reference Range Interpretation [...] code = IG%) 0.5 % 0.0-0.4 H [facility] ABD/ PELVIS W/O CON (RENAL STONE)2020-06-07 14:56:05[facility] ([facility]/[place])Name: LAUREN BETH : [id number] Sex: FProcedure: CT ABD/ PELVIS W/O CON (RENAL STONE)Order date: 06/07/2020 2:18 PMOrdering Provider: REHAN Farrellinical Indication: [id number]: Left flank painComparison: 05/31/20TECHNIQUE: Using a helical [...] 06/07/20202:49PMDictated By: WILEY VELÁZQUEZDate: 06/07/2020 14:49[facility]/PELVIS W/O [id number] 12:27:07NPO 4 hours. Do not withhold meds hyst [facility] ([facility]/[place]/[place])Name: LAUREN BETH : [id number] Sex: FProcedure: CT ABDOMEN/PELVIS W/O CONTRASTOrder Date: 05/31/2020 10:25 AMOrdering Provider: ME ANN MARIE MCBRIDEClinical Indication: [id number]: Pain radiating to right flankComparison: March 20, [...] PMDictated By: FARZAD DEWITT.Date: 05/31/2020 12:20[id number] 11:48:00 Test Item Value Reference Range Interpretation Comments Lipase (test code = LIPA) 116 U/L 73-393 [facility] LAB URINALYSIS WITHOUT [id number] 10:59:00 Test Item Value Reference Range Interpretation Comments Color (test code = UCOLR) Light yellow Lt. Yellow A Clarity (test code = UCLAR) Clear Glucose (test code = UGLUC) Negative Negative N Bilirubin (test code = UBILI) Negative Negative N Ketones (test code = UKET) Negative Negative N Specific Harts (test code = 1.025 1.005-1.030 A USPGR) Blood (test code = UBLD) Negative Negative N PH (test code = UPH) 6.0 4.5-8.0 A Protein (test code = UPROT) Negative Negative N Urobilinogen (test code = U 0.2 >0.2 N UROB) Nitrite (test code = UNITR) Negative Negative N Leukocyte Esterase (test code = Negative Negative N ULEUK) [facility] LAB CBC WITH AUTO [id number] 10:58:00 Test Item Value Reference Range Interpretation [...] 0.5 % 0.0-0.4 H [facility] LAB CHEM [id number] 10:53:00 Test Item Value Reference Range Interpretation [...] code = CREA) 0.5 mg/dl 0.6-1.[address] [facility] 1 VIEW (KUB)2020-04-25 21:02:16 [facility] ([facility]/[place])Name: LAUREN BETH : [id number] Sex: FPROCEDURE INFORMATION:Exam: XR Abdomen, 1 ViewExam date and time: 04/25/2020 8:34 PMAge: 34 years oldClinical indication: Nausea and vomiting and other: Diarrhea; Abdominal pain;Generalized; Prior surgery; Surgery type: HysterectomyTECHNIQUE:Imaging protocol: XR of the abdomen.Views: Frontalsupine view of the abdomen. 1 View.COMPARISON:CT ABDOMEN/PELVIS W/CONTRAST 10/07/2019 10:23 PMFINDINGS:Gastrointestinal tract: Unremarkable. No bowel dilation.Bones/joints: Unremarkable.IMPRESSION:No acute findings.This Final report was electronically signed by Tejas Rodriguez MD on 25 Apr 20209:02 PM CDT .Dictated By: TEJAS RODRIGUEZDate: 04/25/2020 21:02MM[facility]YM[facility]OSPITALURINALYSIS WITH [id number] 18:57:00 Test Item Value Reference Range Interpretation Comments Color (test code = UCOLR) Yellow Lt. Yellow A Clarity (test code = UCLAR) Clear Glucose (test code = UGLUC) Negative Negative N Bilirubin (test code = UBILI) Negative Negative N Ketones (test code = UKET) Negative Negative N Specific Harts (test code = 1.020 1.005-1.030 A USPGR) [...] = UBACT) 4+ None Seen,Trace A [facility] LAB CBC WITH AUTO [id number] 18:55:00 Test Item Value Reference Range Interpretation [...] of Platel et clumping was entered by [id number] on 04/25/2020 18:5 5 [facility] LAB CHEM [id number] 18:17:00 Test Item Value Reference Range Interpretation [...] = CREA) 0.4 mg/dl 0.6-1.3 L [facility] [id number] 15:20:00FIRST DRAW = 1 aerobic and 1 anerobic CultureSpecimen: BloodCollected: 03/20/2020 18:30 Status: Final Last Updated: 03/26/2020 15:19 (1) FIRST DRAW = 1 aerobic and 1 anerobic Culture CULTURE (Final) (Final) No [facility], [id number] 15:20:00FIRST DRAW = 1 aerobic and 1 anerobic CultureSpecimen: BloodCollected: 03/20/2020 18:30 Status: Final Last Updated: 03/26/2020 15:19 (1) FIRST DRAW = 1 aerobic and 1 anerobic Culture CULTURE (Final) (Final) No Growth After 5 DaysF[facility]-LufkinCT ABDOMEN/PELVIS W/[id number] 21:46:442 weeks s/p adhesolysis. Vomiting/pain/fever. Please do CT with PO and IV contrastProcedures: CT ABDOMEN/PELVIS W/CONTRASTExam Date: 03/20/2020 6:04 PMOrdering Physician: REHAN Farrellinical Indication: [id number]: Abdominal painComparison: CT abdomen/pelvis, 02/25/20TECHNIQUE: Spiral multislice [...] 9:40 PMDictated By: ELMER PHAMDate:03/20/2020 21:40[facility]ZHEPATIC FUNCTION PANEL (LIVER)2020-03-20 19:24:00 Test Item Value [...] code = 0.3 mg/dl 0.0-1.1 IBIL) [facility] CenterCfmzey-[id number] 19:24:00 Test Item Value Reference Range Interpretation Comments Lipase (test code = LIPA) 69 U/L 73-393 L [facility] CenterMAGNESIUM2020-09-20 19:24:00 Test Item Value Reference Range Interpretation Comments Magnesium (test code = MG) 2.0 mg/dl 1.6-2.6 [facility] LAB CHEM [id number] 18:43:00 Test Item Value Reference Range Interpretation [...] 0.5 mg/dl 0.6-1.3 L [facility] LAB LACTIC [id number] 18:42:00 Test Item Value Reference Range Interpretation Comments LACTATE (test code = 2.50 mmol/l 0.90-1.70 R&RB sy rene hassan rn LAC) @1842 [facility] LAB CBC WITH AUTO [id number] 18:41:00 Test Item Value Reference Range Interpretation [...] code = IG%) 0.4 % 0.0-0.4 [facility]-LufkinSP PERC PLMNT MIDLINE NO PORT [...] secured to the skin in the usual fashion.Editorial Cartoonist images were recorded and stored in the infirm[facility] ltac hospitalmentation. The patient tolerated the procedure well and there were noimmediate complications.Impression:1. Successful upper extremity vascular access.This final report was electronically signed by Dr Farzad Dewitt MD 03/15/20201:14 PMDictated By: FARZAD DEWITT.Date: 03/15/2020 13:14[facility] (IN HOUSE)2020-03-13 21:03:00 Test Item Value [...] esults recommend recol lection of specimen. [facility]-LufkinXR ABD SERIES W/PA [id number] 17:33:07 Procedure: XR ABD SERIES W/PA CXROrder [...] PMDictated By: GLORY BENITEZKDate: 03/13/2020 17:26[facility]STAT [facility] CBC WITH AUTO [id number] 17:23:00 Test Item Value Reference Range Interpretation [...] entered by [id number] on 03/13/2020 17:23 [facility] CenterLIPASE2020-09-13 17:23:00 Test Item Value Reference Range Interpretation Comments Lipase (test code = LIPA) 61 U/L 73-393 L [facility] CenterHEPATIC FUNCTION PANEL (LIVER)2020-03-13 17:23:00 Test [...] (test code = 0.4 mg/dl 0.0-1.1 IBIL) [facility]kinURINALYSIS WITH [id number] 16:54:00 Test Item Value Reference Range Interpretation Comments Color (test code = UCOLR) Yellow Lt. Yellow A Clarity (test code = UCLAR) Clear Glucose (test code = UGLUC) Negative Negative N Bilirubin (test code = UBILI) Negative Negative N Ketones (test code = UKET) Negative Negative N Specific Harts (test code = >=1.030 1.005-1.030 A USPGR) [...] = UBACT) 4+ None Seen,Trace A [facility] LAB CHEM [id number] 16:37:00 Test Item Value Reference Range Interpretation [...] = CREA) 0.4 mg/dl 0.6-1.3 L [facility]P PERC PLMNT MIDLINE NO PORT > 5 [...] MD 03/02/202012:17 PMDictated By: GLORY BENITEZKDate: 03/02/2020 12:17[facility] (IN HOUSE)2020-03-01 18:48:00 Test Item Value [...] esults recommend recol lection of specimen. [facility]-LufkinPT AND [id number] 11:51:00 Test Item Value Reference Range Interpretation Comments Protime (test code 9.8 seconds 9.5-12.1 = PT) INR (test code = 0.9 0.9-1.1 INR results are intended INR) ONLY to monitor Oral Anticoagulant t herapy in stablized patie nts. The INR Therapeutic Range is 2.0 - 3.0 Patie nts with a mechanical he art, the INR Range is 2. 5 - 3.5 [facility]-[id number] 11:51:00 Test Item Value Reference Range Interpretation Comments aPTT (test code = PTT) 27.4 seconds 23.9-30.7 [facility] CenterCB (HEMOGRAM ONLY)2020-03-01 11:44:00 Test Item Value Reference [...] WILL BE NOTED ON THE RE PORT. [facility] CenterCULTURE, [id number] 08:08:00Specimen: Urine RandomCollected: 02/25/2020 11:27 Status: Final Last Updated: 02/27/2020 08:08 CULTURE (Final) (Final) No Growth After 48 HoursG[facility] [id number] 05:38:00 Test Item Value Reference Range Interpretation [...] 0.5-1.3 code = CREA) EGFR if >60 Egyptian (test code mL/min/1.73m\\ = EGFRAA) S\\2 EGFR if Non- >60 Estimate d Glomerular Egyptian (test code mL/min/1.73m\\ Filtrat ion Rate (eGFR) [...] and management of c hronic kidney failure. [facility] (Ultra Sensitive)2020-02-26 05:38:00 Test Item Value Reference Range Interpretation Comments TSH (test code = TSH) 0.04 mIU/L 0.35-3.74 L [facility] WITH AUTO [id number] 05:18:00 Test Item Value Reference Range Interpretation [...] 0.5 % 0.0-0.4 H IG%) CBC AUTO diffFroedtert [facility]ha Medical Center-LufkinCORONAVIRUS 2019 (IN HOUSE)2020-02-25 14:06:00 Test Item Value [...] esults recommend recol lection of specimen. [facility]-LufkinURINALYSIS WITH [id number] 12:56:00 Test Item Value Reference Range Interpretation Comments Color (test code = UCOLR) Yellow Lt. Yellow A Clarity (test code = UCLAR) Slightly Cloudy Glucose (test code = UGLUC) Negative Negative N Bilirubin (test code = UBILI) Negative Negative N Ketones (test code = UKET) Negative Negative N Specific Harts (test code = >=1.030 1.005-1.030 A USPGR) [...] = UBACT) Trace None Seen,Trace N [facility] CenterLIPASE2020-08-27 12:52:00 Test Item Value Reference Range Interpretation Comments Lipase (test code = LIPA) 90 U/L 73-393 [facility] CenterHEPATIC FUNCTION PANEL (LIVER)2020-02-25 12:52:00 Test [...] code = 0.3 mg/dl 0.0-1.1 IBIL) [facility] CenterCT ABDOMEN/PELVIS W/[id number] 12:42:41NPO 4 hours. Do not withhold medsProcedure: [...] MD 02/25/202012:36 PMDictated By: WILEY VELÁZQUEZDate: 02/25/2020 12:36[facility] LAB CHEM 2020-02-25 12:07:00 Test Item Value [...] 0.5 mg/dl 0.6-1.3 L [facility] LAB CBC WITH AUTO [id number] 12:05:00 Test Item Value Reference Range Interpretation [...] IG%) 0.3 % 0.0-0.4 [facility] LAB CBC WITH AUTO [id number] 03:15:00 Test Item Value Reference Range Interpretation [...] 0.6 % 0.0-0.4 H [facility] LAB CHEM [id number] 02:55:00 Test Item Value Reference Range Interpretation [...] code = CREA) 0.5 mg/dl 0.6-1.3 L [facility] CenterkinXR ABDOMEN 1 VIEW (KUB)2020-02-25 02:45:30 PROCEDURE INFORMATION:Exam: [...] AM CDT.Dictated By: JORGE LUIS WHITEDate: 02/25/2020 02:45MM OF [facility] LAB , URINE 2020-02-25 01:12:00 Test Item Value Reference Range Interpretation Comments (Urine) (test code = Negative PREGU) [facility]STAT LAB URINALYSIS WITHOUT [id number] 01:11:00 Test Item Value Reference Range Interpretation Comments Color (test code = UCOLR) Yellow Lt. Yellow A Clarity (test code = UCLAR) Clear Glucose (test code = UGLUC) Negative Negative N Bilirubin (test code = UBILI) Negative Negative N Ketones (test code = UKET) Negative Negative N Specific Harts (test code = USPGR) >=1.030 1.005-1.030 A Blood (test code = UBLD) Negative Negative N PH (test code = UPH) 5.5 4.5-8.0 A Protein (test code = UPROT) Negative Negative N Urobilinogen (test code = U UROB) 0.2 >0.2 N Nitrite (test code = UNITR) Negative Negative N Leukocyte Esterase (test code = Negative Negative N ULEUK) [facility]-[place]ufkinXR ABDOMEN 1 VIEW (KUB)2020-02-10 06:46:05 [...] AMDictated By: WILEY VELÁZQUEZDate: 02/10/2020 06:39[facility] RENAL & BLADDER (KIDNEYS)2020-02-10 05:31:33PROCEDURE INFORMATION:Exam: US [...] By: JORGE LUIS WHITEDate: 02/10/2020 05:31[facility]ZURINALYSIS WITH [id number] 05:10:00 Test Item Value Reference Range Interpretation Comments Color (test code = UCOLR) Yellow Lt. Yellow A Clarity (test code = UCLAR) Clear Glucose (test code = UGLUC) >=1000 Negative A Bilirubin (test code = UBILI) Negative Negative N Ketones (test code = UKET) Negative Negative N Specific Harts (test code = 1.015 1.005-1.030 A USPGR) [...] = UBACT) None Seen None Seen,Trace N [facility] CenterJvoiaa-[id number] 04:42:00 Test Item Value Reference Range Interpretation Comments Lipase (test code = LIPA) 91 U/L 73-393 [facility] CenterHEPATIC FUNCTION PANEL (LIVER)2020-02-10 04:42:00 Test [...] code = 0.2 mg/dl 0.0-1.1 IBIL) [facility] LAB CHEM [id number] 04:27:00 Test Item Value Reference Range Interpretation [...] code = CREA) 0.6 mg/dl 0.6-1.3 [facility] LAB , [id number] 04:24:00 Test Item Value Reference Range Interpretation Comments (Urine) (test code = Negative PREGU) [facility] LAB CBC WITH AUTO [id number] 04:22:00 Test Item Value Reference Range Interpretation [...] = IG%) 0.5 % 0.0-0.4 H [facility]-LukinCT L SPINE W/O [id number] 12:46:24 Procedure: CT L SPINE W/O CONTRASTOrder date: 01/25/2020 11:46 AMOrdering Provider: DONALD Healyinical Indication: [id number]: Low back painComparison: NoneTechnique: Using a multislice [...] MD 01/25/202012:39 PMDictated By: WILEY VELÁZQUEZDate: 01/25/2020 12:39[facility] PLANOHEPATIC FUNCTION PANEL (LIVER)2019-12-09 05:49:00 Test Item Value [...] code = 0.3 mg/dl 0.0-1.1 IBIL) ER [address] [place], [place] [address]kinLIPASE2020-06-10 05:49:00 Test Item Value Reference Range Interpretation Comments Lipase (test code = LIPA) 105 U/L 73-[address] LAB CHEM [id number] 05:06:00 Test Item Value Reference Range Interpretation [...] code = CREA) 0.5 mg/dl 0.6-1.[address] LAB CBC WITH AUTO [id number] 05:04:00 Test Item Value Reference Range Interpretation [...] (test code = IG%) 0.4 % 0.0-0.[address]-[id number] 02:23:00 Test Item Value Reference Range Interpretation [...] ( 4 - SerumAlbumin)] EGFR if >60 Egyptian (test code mL/min/1.73m\\ = EGFRAA) S\\2 EGFR if Non- >60 Estimate d Glomerular Egyptian (test code mL/min/1.73m\\ Filtrat ion Rate (eGFR) [...] management of c hronic kidney failure. [facility]kinURINALYSIS WITH [id number] 02:11:00 Test Item Value Reference Range Interpretation Comments Color (test code = UCOLR) Yellow Lt. Yellow A Clarity (test code = UCLAR) Clear Glucose (test code = UGLUC) Negative Negative N Bilirubin (test code = UBILI) Negative Negative N Ketones (test code = UKET) Trace Negative A Specific Harts (test code = USPGR) >=1.030 1.005-1.030 A [...] 2+ None Seen,Trace A [facility] LAB CBC WITH AUTO [id number] 02:03:00 Test Item Value Reference Range Interpretation [...] (test code = IG%) 0.4 % 0.0-0.[address] [facility] ABDOMEN/PELVIS W/[id number] 22:43:00NPO 4 hours. Do not withhold meds [...] 201910:42 PM CDT.Dictated By: JOSUÉ MCGHEEDate: 10/07/2019 22:42[facility] 2019-10-07 22:05:00 Test Item Value Reference [...] 0.5-1.3 code = CREA) EGFR if >60 Egyptian (test code mL/min/1.73m\\ = EGFRAA) S\\2 EGFR if Non- >60 Estimate d Glomerular Egyptian (test code mL/min/1.73m\\ Filtrat ion Rate (eGFR) [...] management of c hronic kidney failure. [facility]-LufkinAMYLASE, [id number] 22:05:00 Test Item Value Reference Range Interpretation Comments Amylase (test code = AMYL) 43 U/L 25-115 [facility] CenterRjjsxx-HtgvfuCRWRMN7892-22-08 22:05:00 Test Item Value Reference Range Interpretation Comments Lipase (test code = LIPA) 95 U/L 73-393 [facility]-LufkinURINALYSIS WITH [id number] 21:49:00 Test Item Value Reference Range Interpretation Comments Color (test code = UCOLR) Yellow Lt. Yellow A Clarity (test code = UCLAR) Clear Glucose (test code = UGLUC) Negative Negative N Bilirubin (test code = UBILI) Negative Negative N Ketones (test code = UKET) 15 Negative A Specific Harts (test code = USPGR) >=1.030 1.005-1.030 A [...] code = UBACT) 3+ None Seen,Trace A [facility]-fkinSTAT LAB CBC WITH AUTO [id number] 21:45:00 Test Item Value Reference Range Interpretation [...] IG%) 0.4 % 0.0-0.4 [facility] LAB , [id number] 21:36:00 Test Item Value Reference Range Interpretation Comments (Urine) (test code = Negative PREGU) [facility]/PELVIS W/O [id number] 03:56:36 PROCEDURE INFORMATION:Exam: CT Abdomen And Pelvis [...] [facility] [id number] 02:07:00 Test Item Value Reference Range Interpretation [...] ( 4 - SerumAlbumin)] EGFR if >60 Egyptian (test code mL/min/1.73m\\ = EGFRAA) S\\2 EGFR if Non- >60 Estimate d Glomerular Egyptian (test code mL/min/1.73m\\ Filtrat ion Rate (eGFR) [...] management of c hronic kidney failure. [facility]-LufkinXR ABDOMEN 2 VIEWS FLAT / [id number] 02:01:15PROCEDURE INFORMATION:Exam: XR Abdomen, 2 ViewsExam date [...] CDT.Dictated By: AMY ORDOÑEZDate: 09/20/2019 02:01[facility]URINAL[facility] WITH MICROSCOPIC 2019-09-20 01:56:00 Test Item Value Reference Range Interpretation Comments Color (test code = UCOLR) Yellow Lt. Yellow A Clarity (test code = UCLAR) Clear Glucose (test code = UGLUC) >=1000 Negative A Bilirubin (test code = UBILI) Negative Negative N Ketones (test code = UKET) Trace Negative A Specific Harts (test code = USPGR) >=1.030 1.005-1.030 A [...] 2+ None Seen,Trace A [facility] LAB CBC WITH AUTO [id number] 01:38:00 Test Item Value Reference Range Interpretation [...] code = IG%) 0.5 % 0.0-0.4 [address] [facility] ABDOMEN/PELVIS W/[id number] 04:23:30 PROCEDURE INFORMATION:Exam: CT Abdomen And Pelvis [...] CDT.Dictated By: SETH MEDINADate: 08/17/2019 04:23[facility] OF [id number] 03:34:00 Test Item Value Reference Range Interpretation Comments Lipase (test code = LIPA) 67 U/L 73-393 L [facility]-UtqzkaRAH7113-04-31 03:34:00 Test Item Value Reference Range Interpretation [...] ( 4 - SerumAlbumin)] EGFR if >60 Egyptian (test code mL/min/1.73m\\ = EGFRAA) S\\2 EGFR if Non- >60 Estimate d Glomerular Egyptian (test code mL/min/1.73m\\ Filtrat ion Rate (eGFR) [...] management of c hronic kidney failure. [facility] LAB CBC WITH AUTO [id number] 03:19:00 Test Item Value Reference Range Interpretation [...] code = IG%) 0.7 % 0.0-0.4 H [facility]-fkinURINALYSIS WITH [id number] 03:10:00 Test Item Value Reference Range Interpretation Comments Color (test code = UCOLR) YELLOW Clarity (test code = UCLAR) CLEAR Glucose (test code = UGLUC) NEGATIVE NEGATIVE N Bilirubin (test code = UBILI) NEGATIVE NEGATIVE N Ketones (test code = UKET) NEGATIVE NEGATIVE N Specific Harts (test code = 1.025 1.005-1.030 A USPGR) [...] code = UBACT) 1+ None Seen,Trace A [facility] LAB , [id number] 03:03:00 Test Item Value Reference Range Interpretation Comments (Urine) (test code = Negative PREGU) ONLY AVAILABLE [place] [address] [id number] 20:37:00 Test Item Value Reference Range Interpretation [...] (test code = CREA) 0.6 mg/dl 0.6-1.2 [facility] CenterkinE [id number] 20:28:00 Test Item Value Reference Range Interpretation [...] = MPV) 7.1 fL 8.0-11.0 A [facility]ieCULTGRE[facility]WO[facility], [id number] 08:44:47zhk6Ytabsgud: Urine SpecimensCollected: 07/12/2019 15:00 Status: Final Last Updated: 2019 08:44 (1) err7 Culture Result (Final) (Final) Moderate Mixed Body Gabriela Isolated No Pathogens Isolated No Further Workup PerformedFroedtert Kenos[facility] Medical Center-LufkinFL LIMITED [id number] 17:53:41Procedures: [place] LIMITED IVPExam Date: 07/12/2019 3:21 PMOrdering Physician: REHAN COTTONClinical Indication: [id number]: Flank painComparison: CT abdomen/pelvis, 05/17/19Findings: Frontal radiographs [...] PMDictated By: ELMER PHAMDate: 07/12/2019 17:47[facility] OF [id number] 15:56:00 Test Item Value Reference Range Interpretation Comments Lipase (test code = LIPA) 97 U/L 73-[address]-LufkinHEPATIC FUNCTION PANEL (LIVER)2019-07-12 15:56:00 Test Item [...] (test code = 0.2 mg/dl 0.0-1.1 IBIL) [address]-LufkinURINALYSIS WITH [id number] 15:51:00 Test Item Value Reference Range Interpretation Comments Color (test code = UCOLR) YELLOW Clarity (test code = UCLAR) CLEAR Glucose (test code = UGLUC) NEGATIVE NEGATIVE N Bilirubin (test code = UBILI) NEGATIVE NEGATIVE N Ketones (test code = UKET) NEGATIVE NEGATIVE N Specific Harts (test code = 1.020 1.005-1.030 A USPGR) [...] code = UBACT) 4+ None Seen,Trace A [address] LAB CHEM [id number] 15:09:00 Test Item Value Reference Range Interpretation [...] (test code = CREA) 0.6 mg/dl 0.6-1.[address] LAB CBC WITH AUTO [id number] 15:08:00 Test Item Value Reference Range Interpretation [...] (test code = IG%) 0.4 % 0.0-0.[address]-LufkinCT ABDOMEN/PELVIS W/[id number] 16:33:46NPO 4 hours. Do not withhold medsProcedures: CT ABDOMEN/PELVIS W/CONTRASTExam Date: 05/17/2019 1:31 PMOrdering Physician: MERLE Jiménezinical Indication: [id number]: Abdominal painComparison: CT abdomen/pelvis, 04/09/19TECHNIQUE: Spiral multislice [...] MD05/17/2019 4:27 PMDictated By: ELMER PHAMDate: 05/17/2019 16:27[facility] [id number] 16:20:00 Test Item Value Reference Range Interpretation Comments Lipase (test code = LIPA) 70 U/L 73-393 L [facility] LAB CHEM [id number] 15:24:00 Test Item Value Reference Range Interpretation [...] 0.5 mg/dl 0.6-1.3 L [facility] LAB LACTIC [id number] 15:23:00 Test Item Value Reference Range Interpretation Comments LACTATE (test code = LAC) 1.39 mmol/l 0.90-1.70 [facility] LAB CBC WITH AUTO [id number] 15:21:00 Test Item Value Reference Range Interpretation [...] = IG%) 0.5 % 0.0-0.4 H [facility]-[place]kinURINALYSIS WITH [id number] 15:08:00 Test Item Value Reference Range Interpretation Comments Color (test code = UCOLR) YELLOW Clarity (test code = UCLAR) CLEAR Glucose (test code = UGLUC) NEGATIVE NEGATIVE N Bilirubin (test code = UBILI) NEGATIVE NEGATIVE N Ketones (test code = UKET) NEGATIVE NEGATIVE N Specific Harts (test code = 1.025 1.005-1.030 A USPGR) [...] = UBACT) 2+ None Seen,Trace A [facility]usaint [facility] hospital at sussexCT ANGIO HEAD W/WO [id number] 16:28:5720 g Cathlon Above the Antecubital or higher requiredProcedure: CT ANGIO HEAD W/WO CONTRASTOrder Date: 05/12/2019 3:30 PMOrdering Provider: REHAN VANG SA NDERSClinical Indication: [id number]: HeadacheComparison: NoneTechnique: Using a helical scanner, sequential axial imaging of the brain wasobtained before and after the administration of the contrast medium. At anindependent workstation, 3-D reconstructions of the [place] wereobtained.This examwas performed according to [...] PMDictated By: FARZAD DEWITTDate: 05/12/2019 16:22[facility]EZCT ABDOMEN/PELVIS W/[id number] 14:36:05NPO 4 hours. Do not withhold medsProcedure: CT ABDOMEN/PELVIS W/CONTRASTOrder Date: 04/09/2019 8:00 AMOrdering Provider: LIZBETH RUBIOERClinical Indication: R09.89: OTHER SPECIFIED SYMPTOMS AND SIGNS INVOLVING THECIRCULATORY AND RESPIRATORY SYSTEMSComparison: October 5, 2019TECHNIQUE:The abdomen and pelvis were scanned utilizing [...] Silver Benitez MD 04/09/20192:29 PMDictated By: GLORY EBNITEZKDate: 04/09/2019 14:29[facility] WITH AUTO [id number] 09:02:00 Test Item Value Reference Range Interpretation [...] = 0.5 % 0.0-0.4 H IG%) [facility] WITH AUTO [id number] 09:14:00 Test Item Value Reference Range Interpretation [...] code = 0.4 % 0.0-0.4 IG%) [facility]-HrjzhtHDT2703-19-20 09:12:00 Test Item Value Reference Range Interpretation [...] 0.5-1.3 code = CREA) EGFR if >60 Egyptian (test code mL/min/1.73m\\ = EGFRAA) S\\2 EGFR if Non- >60 Estimate d Glomerular Egyptian (test code mL/min/1.73m\\ Filtrat ion Rate (eGFR) [...] management of c hronic kidney failure. [facility]-LufkinSP PERC PLMNT MIDLINE NO PORT [...] PMDictated By: WILEY VELÁZQUEZDate: 04/07/2019 16:05[facility]ZCT ABDOMEN/PELVIS W/[id number] 22:50:40PROCEDURE INFORMATION:Exam: CT Abdomen and pelvis with [...] CDT.Dictated By: ELMER PHAMDate: 04/04/2019 22:50[facility] – [id number] 21:22:00 Test Item Value Reference Range Interpretation Comments Lipase (test code = LIPA) 89 U/L 73-393 [facility]HEP[facility] (LIVER)2019-04-04 21:22:00 Test [...] 0.3 mg/dl 0.0-1.1 IBIL) [facility] LAB CHEM [id number] 21:07:00 Test Item Value Reference Range Interpretation [...] code = CREA) 0.6 mg/dl 0.6-1.3 [facility] LAB URINALYSIS WITHOUT [id number] 21:05:00 Test Item Value Reference Range Interpretation Comments Color (test code = UCOLR) Yellow Lt. Yellow A Clarity (test code = UCLAR) Slightly Cloudy Glucose (test code = UGLUC) 100 Negative A Bilirubin (test code = UBILI) Negative Negative N Ketones (test code = UKET) Negative Negative N Specific Harts (test code = >=1.030 1.005-1.030 A USPGR) Blood (test code = UBLD) Negative Negative N PH (test code = UPH) 5.5 4.5-8.0 A Protein (test code = UPROT) Negative Negative N Urobilinogen (test code = U 0.2 >0.2 N UROB) Nitrite (test code = UNITR) Negative Negative N Leukocyte Esterase (test code Negative Negative N = ULEUK) [facility] LAB CBC WITH AUTO [id number] 21:04:00 Test Item Value Reference Range Interpretation [...] 0.5 % 0.0-0.4 H [facility] LAB , [id number] 21:04:00 Test Item Value Reference Range Interpretation Comments (Urine) (test code = Negative PREGU) ONLY AVAILABLE 8A-12[facility]inE [id number] 16:05:00 Test Item Value Reference Range Interpretation Comments Sodium (test code = CANCELED mmol/l The r eleased value NA) 141 was cancele d by [id number] on 04/04/2019 16:0 5 Potassium (test code CANCELED mmol/l The released value = K) 3.9 was cancele d by [id number] on 04/04/2019 16:0 5 CO2 (test code = CANCELED mmol/l The rele ased value CO2) 23 was canceled by [id number] on 04/04/2019 16:0 5 Chloride (test code CANCELED mmol/l The r eleased value = CL) 108 was cancele d by [id number] on 04/04/2019 16:0 5 Glucose (test code = CANCELED mg/dl The r eleased value GLU) 96 was canceled by [id number] on 04/04/2019 16:0 5 Calcium (test code = CANCELED mg/dl The r eleased value CALC) 8.8 was cancele d by [id number] on 04/04/2019 16:0 5 BUN (test code = CANCELED mg/dl The relea sed value BUN) 11 was canceled by [id number] on 04/04/2019 16:0 5 Creatinine (test CANCELED mg/dl code = CREA) [facility]-fkinHISTOLOGY [id number] 11:08:[address] [place] [address]Hhqst: [phone] VKYR #: [id number] MedicalDirector: Seth Valdez M.D.Surgical Pathology Consultation ReportPatient Name: LAUREN BETH Case #: [id number] Med. Rec. #:[id number] [id number] Date: 03/21/2019 : 1985(Age:33) Received: 03/23/2019 Gender: F Copy to : Reported:03/23/2019 Physician(s): Lizbeth Wolfe Specimen(s) ReceivedA: Right ovary Final Pathologic DiagnosisRight ovary and fallopian tube, right salpingo-oophorectomy:- fibrovascular adhesions of ovary and fallopian tube. - numerous follicular cysts, benign serous cysts, and corpusalbicanswithin ovarian parenchyma. Electronically Signed Out 03/23/2019 Seth Valdez MD, Board Certified in Anatomic [...] greatest dimension. The cystsarefilled with clearserous fluid. Editorial Cartoonist sections of the ovaryandpossible fallopian tube are submitted in cassettes A1-A8. /03/23/2019 Seth Valdez MD, Board Certified in Anatomic Pathology Microscopic DescriptionMicroscopic examination of the right ovary reveals fibrovascularadhesionsalong the surface of the ovary as well as along the accompanyingfallopiantube. The ovarian parenchyma contains follicular cysts, benign serouscyst,as well as numerous corpus albicans. No areas of endometriosis areseen. Billing Fee Code(s): A; 46503ErrxxxadF[facility]ter[facility]- US TRANSVAGINAL W/[id number] 16:45:00 Patient Name: ADELIA BETH Unit No: [id number] EXAMS: CPT CODE: [id number] US TRANSVAGINAL W/PELVIS 42069 CLINICAL HISTORY: Right lower quadrant pain. Status [...] MD Technologist: Dipesh Miranda RDMS, RVT Probe: [id number] Trnscrbd D/ (1645) t.SDR.YOS Orig Print D/T: S: 03/10/2019 (9558) [facility] NAME: ADELIA BETH Radiology Department [facility] - Hilaria Calderón [address] : 1985 AGE: 33 SEX: F [place] [address] LOC: DayanaraERS PHONE #: [phone] EXAM DATE: 03/10/2019 STATUS: REG ER FAX #: [phone] RAD NO: Page 1 Signed Report Patient Name: ADELIA BETH Unit No: [id number] EXAMS: CPT CODE: [id number] US TRANSVAGINAL W/PELVIS 12751 <Continued> [facility] NAME: ADELIA BETH Radiology Department PHYS: [facility] - Hilaria Calderón [address] : 1985 AGE: 33 SEX: F [place] [address] LOC: DayanaraERS PHONE #: [phone] EXAM DATE: 03/10/2019 STATUS: REG ER FAX #: [phone] RAD NO: Page 2 Signed Report- US TRANSVAGINAL W/[id number] 16:45:00 Patient Name: LAUREN BETH Unit No: [id number] EXAMS: CPT CODE: [id number] US TRANSVAGINAL W/PELVIS 07520 CLINICAL HISTORY: Right lower quadrant pain. Status [...] MD Technologist: Dipesh Miranda RDMS, T Probe: [id number] Trnscrbd D/ (1645) t.MICAELAREmmaYOS Orig Print D/T: S: 03/10/2019 (4008) [facility] [place] [facility] NAME: LAUREN BETH Radiology Department PHYS: SUE. - Hilaria Calderón [address] : 1985 AGE: 33 SEX: F [place] [address] LOC: ALONDRA PHONE #:[phone] EXAM DATE: 03/10/2019 STATUS: [facility] FAX #: [phone] RAD NO: [id number] Page 1 Signed Report Patient Name: LAUREN BETH Unit No: [id number] EXAMS: CPT CODE: [id number] US TRANSVAGINAL W/PELVIS 66201 (Continued) [facility] NAME: LAUREN BETH Radiology DepartmentPHYS: SUE. - Hilaria Calderón [address] : 1985 AGE: 33 SEX: F [place] [address] LOC: ALONDRA PHONE #: [phone] EXAM DATE: 03/10/2019 STATUS: DEP ER FAX #: [phone] RAD NO: [id number] Page 2 Signed Report- US PELVIS [id number] 16:45:00 Patient Name: ADELIA BETH Unit No: [id number] EXAMS: CPT CODE: [id number] US PELVIS COMPLETE 35665 CLINICAL HISTORY: Right lower quadrant pain. Status [...] Dipesh Miranda RDMS, RVT Probe: Trnscrbd D/ (3165) VereniceYOS Orig Print D/T: S: 03/10/2019 (3982) [facility] NAME: ADELIA BETH Radiology Department PHYS: Hilaria Maldonado [address] : 1985 AGE: 33 SEX: F [place], [place] [address] LOC: ALONDRA PHONE #: [phone] EXAM DATE: 03/10/2019 STATUS: [facility] ER FAX #: [phone] RAD NO: Page 1 Signed Report Patient Name: ADELIA BETH Unit No: [id number] EXAMS: CPT CODE: [id number] US PELVIS COMPLETE 77274 <Continued> [facility] NAME: ADELIA BETH Radiology Department PHYS: SUE. - Hilaria Calderón [address] : 1985 AGE: 33 SEX: F [place], [place] [address] LOC: ALONDRA PHONE #: [phone] EXAM DATE: 03/10/2019 STATUS: REG ER FAX #: [phone] RAD NO: Page 2 Signed Report- US PELVIS [id number] 16:45:00 Patient Name: LAUREN BETH Unit No: [id number] EXAMS: CPT CODE: [id number] US PELVIS COMPLETE 99038 CLINICAL HISTORY: Right lower quadrant pain. Status [...] Dipesh Miranda RDMS, RVT Probe: Trnscrbd D/ (5845) AtilioS Orig Print D/T: S: 03/10/2019 (4716) [facility] NAME: LAUREN BETH Radiology Department PHYS: SUE. - Hilaria Calderón [address] : 1985 AGE: 33 SEX: F [place], [place] [address] LOC: ALONDRA PHONE #: [phone] EXAM DATE: 03/10/2019 STATUS: DEP ER FAX #: [phone] RAD NO: [id number] Page 1 Signed Report Patient Name: LAUREN BETH Unit No: [id number] EXAMS: CPT CODE: [id number] US PELVIS COMPLETE 69382 (Contin ued) [facility] NAME: LAUREN BETH Radiology Department PHYS: BEBEAL. iHlaria Calderón [address] : 1985 AGE: 33 SEX: F [place], [place] [address] LOC: ALONDRA PHONE #: [phone] EXAM DATE: 03/10/2019 STATUS: [facility] ER FAX #: [phone] RAD NO: [id number] Page 2 Signed ReportCBC W/AUTO [id number] 16:18:00 Test Item Value Reference Range Interpretation [...] = PLTMR) UA RFLX MICR CULT IF [id number] 16:07:00 Test Item Value Reference Range Interpretation [...] A Indication for culture: Suprapubic PainUR HCG [id number] 16:07:00 Test Item Value Reference Range Interpretation [...] culture: Suprapubic PainUA RFLX MICR CULT IF [id number] 16:04:00 Test Item Value Reference Range Interpretation [...] EPIU) Indication for culture: Suprapubic PainUR HCG [id number] 16:04:00 Test Item Value Reference Range Interpretation [...] culture: Suprapubic PainUA RFLX MICR CULT IF [id number] 15:55:00 Test Item Value Reference Range Interpretation [...] RARE-FEW Indication for culture: Suprapubic PainUR HCG [id number] 15:55:00 Test Item Value Reference Range Interpretation [...] and tested. Indication for culture: Suprapubic PainED2 [id number] 01:18:00 Test Item Value Reference Range Interpretation [...] code = MPV) 6.9 fL 8.0-11.0 [place] [address] URINE [id number] 00:55:00 Test Item Value Reference Range Interpretation Comments Color (test code = UCOLR) Yellow Lt. Yellow A Clarity (test code = UCLAR) Clear Glucose (test code = UGLUC) NEGATIVE NEGATIVE N Bilirubin (test code = UBILI) NEGATIVE NEGATIVE N Ketones (test code = UKET) NEGATIVE NEGATIVE N Specific Harts (test code = USPGR) 1.030 1.005-1.030 A Blood (test code = UBLD) NEGATIVE NEGATIVE N PH (test code = UPH) 6.0 4.5-8.0 A Protein (test code = UPROT) Trace NEGATIVE A Urobilinogen (test code = U UROB) 0.2 >0.2 N Nitrite (test code = UNITR) NEGATIVE NEGATIVE N Leukocyte Esterase (test code = NEGATIVE NEGATIVE N ULEUK) [facility]kinED2 , [id number] 00:54:00 Test Item Value Reference Range Interpretation Comments (Urine) (test code = Negative PREGU) [facility]kinLIPASE2019-[facility] 13:07:00 Test Item Value Reference Range Interpretation Comments Lipase (test code = LIPA) 106 U/L 73-[address] [facility] [address] [address] [facility]BDOMEN/PELVIS W/[id number] 12:24:12Procedures: ED2 CT ABDOMEN/PELVIS W/CONTRASTExam Date: 02/07/2019 10:11 AMOrdering Physician: WYATT Downsinical Indication: [id number]: Epigastric painComparison: CT abdomen/pelvis, 01/27/19TECHNIQUE: Spiral multislice [...] Elmer Juárez MD02/07/2019 12:17 PMDictated By: ELMER HPAMDate: 02/07/2019 12:17[facility] [address]2019-08-10 10:48:00 Test Item Value Reference Range [...] (test code = TP) 7.6 gm/dl 6.4-8.1 [facility]-LufkinED2 URINE [id number] 10:45:00 Test Item Value Reference Range Interpretation Comments Color (test code = UCOLR) Yellow Lt. Yellow A Clarity (test code = UCLAR) Sl Cloudy Glucose (test code = UGLUC) NEGATIVE NEGATIVE N Bilirubin (test code = UBILI) NEGATIVE NEGATIVE N Ketones (test code = UKET) NEGATIVE NEGATIVE N Specific Harts (test code = 1.025 1.005-1.030 A USPGR) Blood (test code = UBLD) NEGATIVE NEGATIVE N PH (test code = UPH) 5.5 4.5-8.0 A Protein (test code = UPROT) NEGATIVE NEGATIVE N Urobilinogen (test code = U UROB) 0.2 >0.2 N Nitrite (test code = UNITR) NEGATIVE NEGATIVE N Leukocyte Esterase (test code = NEGATIVE NEGATIVE N ULEUK) [facility]LufkinED2 , [id number] 10:45:00 Test Item Value Reference Range Interpretation Comments (Urine) (test code = Negative PREGU) [facility]ED2 [id number] 10:44:00 Test Item Value Reference Range Interpretation [...] = MPV) 6.8 fL 8.0-11.0 A [facility]kinCT ABDOMEN/PELVIS W/[id number] 12:29:19s/p hysterectomy; rlq painProcedure: CT ABDOMEN/PELVIS W/CONTRASTOrder Date: 01/27/2019 10:57 AMOrdering Provider: DR LEXUS CASTREJON ACOSTAClinical Indication: [id number]: Abdominal painComparison: September 30, 2018TECHNIQUE:The abdo men [...] MD 01/27/201912:23 PMDictated By: GLORY BENITEZKDate: 01/27/2019 12:23[facility] WITH [id number] 12:10:00 Test Item Value Reference Range Interpretation Comments Color (test code = UCOLR) YELLOW Clarity (test code = UCLAR) CLEAR Glucose (test code = UGLUC) NEGATIVE NEGATIVE N Bilirubin (test code = UBILI) NEGATIVE NEGATIVE N Ketones (test code = UKET) NEGATIVE NEGATIVE N Specific Harts (test code = USPGR) <=1.005 1.005-1.030 A [...] = UBACT) Trace None Seen,Trace N [facility] CenterPwyqjm-QpgkczPNUAVI6187-56-30 11:49:00 Test Item Value Reference Range Interpretation Comments Lipase (test code = LIPA) 91 U/L 73-393 [facility] CenterAMYL[facility], [id number] 11:49:00 Test Item Value Reference Range Interpretation Comments Amylase (test code = AMYL) 45 U/L 25-115 [facility] LAB CHEM [id number] 11:25:00 Test Item Value Reference Range Interpretation [...] 0.5 mg/dl 0.6-1.3 L [facility] LAB CBC WITH AUTO [id number] 11:23:00 Test Item Value Reference Range Interpretation [...] = IG%) 0.6 % 0.0-0.[address] [facility] PELVIS [id number] 07:55:25h/o complex right ovarian cystsProcedure: Pelvic ultrasound.CLINICAL [...] Velázquez MD 12/07/20187:49 AMDictated By:WILEY VELÁZQUEZDate: 12/07/2018 07:49[facility] [id number] 03:11:00 Test Item Value Reference Range Interpretation Comments Lipase (test code = LIPA) 136 U/L 73-393 [facility] CenterHEPATIC FUNCTION PANEL (LIVER)2018-12-07 03:10:00 Test [...] 0.1 mg/dl 0.0-1.1 IBIL) [facility] LAB CHEM [id number] 02:41:00 Test Item Value Reference Range Interpretation [...] 0.5 mg/dl 0.6-1.3 L [facility] LAB CBC WITH AUTO [id number] 02:39:00 Test Item Value Reference Range Interpretation [...] code = IG%) 0.5 % 0.0-0.4 H [facility]kinURINALYSIS WITH [id number] 02:37:00 Test Item Value Reference Range Interpretation Comments Color (test code = UCOLR) YELLOW Clarity (test code = UCLAR) CLEAR Glucose (test code = UGLUC) 500 NEGATIVE A Bilirubin (test code = UBILI) NEGATIVE NEGATIVE N Ketones (test code = UKET) TRACE NEGATIVE A Specific Harts (test code = USPGR) >=1.030 1.005-1.030 A [...] = UBACT) 2+ None Seen,Trace A [facility]kinCULTURE, [id number] 07:39:00CULTURE RIGHT ABDOMEN WOUND CARE DEPTSpecimen: AbdomenCollected: [...] (+/-) Negative - ICR (+/-) Negative -[facility]kinXR CHEST AP/PA 1 [id number] 05:15:17Procedure: XR CHEST AP/PA 1 VIEWOrder Date: 09/30/2018 8:28 PMOrdering Provider: DIMAS Haskinsinical Indication: [id number]: Acute chest painComparison: May 13, 2017Findings:Cardiac size [...] [facility]PELVIS W/O [id number] 00:42:26NPO 4 hours. Do not withhold medsEXAM:CT [...] CDT.Dictated By: REHAN AZARDate: 10/01/2018 00:42[facility] [id number] 21:37:00 Test Item Value Reference Range Interpretation Comments Lipase (test code = LIPA) 82 U/L 73-393 [facility] CenterHEP[facility] FUNCTION PANEL (LIVER)2018-09-30 21:37:00 Test [...] code = 0.5 mg/dl 0.0-1.1 IBIL) [facility] LAB CHEM [id number] 21:10:00 Test Item Value Reference Range Interpretation [...] 0.5 mg/dl 0.6-1.3 L [facility] LAB CBC WITH AUTO [id number] 21:09:00 Test Item Value Reference Range Interpretation [...] (test code = IG%) 0.3 % 0.0-0.4 [facility] W/WO TUBE,[id number] 12:44:00 RUN DATE: 09/04/18 [facility] PAGE 1 RUN TIME: 1454 Specimen Inquiry RUN USER: INTERFACE -PATIENT: LAUREN BETH Zoltan [facility] [id number] AGE/SX: 33/F ROOM: [facility] RE09/02/18REG DR:Elmer Flores : 87 BED: A DIS: 09/03/18 STATUS: DIS Coty TLOC: SPEC #: [id number] RECD: 09/02/18 STATUS: KWAME RETeri #: [id number] MELISSA: 09/02/18- SUBM DR: Elmer Flores III ENTERED: 09/03/18 SP TYPE: OVARMELANIE PELAYO DR: ORDERED: LEVEL IV CODES: [id number] - OVARY, NOS PROCEDURES: LEVEL IV (Incomplete) TISSUES: OVARY, NOS - RIGHT OVARIAN CYST CLINICAL HISTORY 33 year old, acute pelvic pain (wpd) FINAL DIAGNOSIS Right ovarian cyst, excision: - benign simple cyst of ovary Tissue code 1 CPT code(s): 86789 [facility] 09/04/18 GROSS DESCRIPTION ANATOMIC SOURCE OF [...] with multiple yellow-orange, centrally hemorrhagic corpora lutea. Editorial Cartoonist sections are submitted as A and B. telma/wpd 09/03/18 @ 1343 Signed Amaris Wharton MD 09/04/18 1244 END OF REPORT CBC W/AUTO [id number] 03:10:00 Test Item Value Reference Range Interpretation [...] NORMAL NORMAL code = PLTMR) CHEMISTRY 7 [id number] 14:15:00 Test Item Value Reference Range Interpretation [...] CA) 9.2 mg/dL 8.4-10.2 N CBC W/AUTO [id number] 13:42:00 Test Item Value Reference Range Interpretation [...] NORMAL NORMAL code = PLTMR) US INTRAVAGINAL [id number] 12:35:09Procedure: Pelvic ultrasound.CLINICAL INDICATION: Pelvic pain. Status [...] PMDictated By: WILEY VELÁZQUEZDate: 09/01/2018 12:28[facility] LAB CBC WITH AUTO [id number] 11:31:00 Test Item Value Reference Range Interpretation [...] RS88 71 on 09/01/2018 11:31 ONLY AVAILABLE [address] [place] [address]-[place] ABDOMEN/PELVIS W/O [id number] 11:11:01MLP CProcedure: CT ABDOMEN/PELVIS W/O CONTRASTOrder Date: 09/01/2018 9:28 AMOrdering Provider: CHIN Guilleninical Indication: [id number]: Abdominal pain. Left lower quadrant painComparison: 12/24/2017TECHNIQUE:CT [...] 09/01/201811:04 AMDictatedBy: GLORY BENITEZKDate: 09/01/2018 11:04[facility] LAB CHEM [id number] 10:26:00 Test Item Value Reference Range Interpretation [...] CREA) 0.4 mg/dl 0.6-1.3 L ONLY AVAILABLE [address] [place], [place] [address]kinS[facility] URINALYSIS WITHOUT [id number] 09:59:00 Test Item Value Reference Range Interpretation Comments Color (test code = UCOLR) Yellow Lt. Yellow A Clarity (test code = UCLAR) Clear Glucose (test code = UGLUC) NEGATIVE Negative A Bilirubin (test code = UBILI) NEGATIVE Negative A Ketones (test code = UKET) NEGATIVE Negative A Specific Harts (test code = USPGR) 1.015 1.005-1.030 A Blood (test code = UBLD) NEGATIVE Negative A PH (test code = UPH) 7.0 4.5-8.0 A Protein (test code = UPROT) NEGATIVE Negative A Urobilinogen (test code = U UROB) 0.2 >0.2 N Nitrite (test code = UNITR) NEGATIVE Negative A Leukocyte Esterase (test code = NEGATIVE Negative A ULEUK) ONLY AVAILABLE [address] [place] [address]-[place]ufkinUS INTRAVAGINAL PELVIS 2018-05-13 13:26:23Procedure: Pelvic ultrasound.CLINICAL INDICATION: [...] PMDictated By: WILEY VELÁZQUEZDate: 05/13/2018 13:20[facility] CBC WITH AUTO [id number] 12:22:00 Test Item Value Reference Range Interpretation [...] 0.2 % 0.0-0.4 IG%) [facility] LAB CBC WITH AUTO [id number] 11:54:00 Test Item Value Reference Range Interpretation [...] 0.5 % 0.0-0.4 H IG%) ONLY AVAILABLE [address] [place] [address] LAB URINALYSIS WITHOUT [id number] 11:25:00 Test Item Value Reference Range Interpretation Comments Color (test code = UCOLR) Yellow Lt. Yellow A Clarity (test code = UCLAR) Clear Glucose (test code = UGLUC) NEGATIVE Negative A Bilirubin (test code = UBILI) NEGATIVE Negative A Ketones (test code = UKET) NEGATIVE Negative A Specific Harts (test code = USPGR) 1.020 1.005-1.030 A Blood (test code = UBLD) NEGATIVE Negative A PH (test code = UPH) 7.0 4.5-8.0 A Protein (test code = UPROT) NEGATIVE Negative A Urobilinogen (test code = U UROB) 0.2 >0.2 N Nitrite (test code = UNITR) NEGATIVE Negative A Leukocyte Esterase (test code = NEGATIVE Negative A ULEUK) ONLY AVAILABLE [address] [place] [address] LAB , URINE 2018-05-13 11:25:00 Test Item Value Reference Range Interpretation Comments (Urine) (test code = Negative PREGU) ONLY AVAILABLE [address] [place] [address] LAB CHEM [id number] 11:23:00 Test Item Value Reference Range Interpretation [...] CREA) 0.5 mg/dl 0.6-1.3 L ONLY AVAILABLE [address] [place] [address]-[facility] CenterkinUS INTRAVAGINAL PELVIS 2017-12-24 12:50:53Procedure: Pelvic ultrasound.CLINICAL INDICATION: [...] PMDictated By: WILEY VELÁZQUEZDate: 12/24/2017 12:50[facility]OUEZURINALYSIS WITH [id number] 10:22:00 Test Item Value Reference Range Interpretation Comments Color (test code = UCOLR) Yellow Clarity (test code = UCLAR) Clear Glucose (test code = UGLUC) NEGATIVE NEGATIVE N Bilirubin (test code = UBILI) NEGATIVE NEGATIVE N Ketones (test code = UKET) NEGATIVE NEGATIVE N Specific Harts (test code = USPGR) 1.025 1.005-1.030 A [...] = UBACT) Trace None Seen,Trace N [facility]-LufkinLIPASE, [id number] 10:05:00 Test Item Value Reference Range Interpretation Comments Lipase (test code = LIPA) 40 U/L 8-223 [facility]-[id number] 10:05:00 Test Item Value Reference Range Interpretation [...] ( 4 - SerumAlbumin)] EGFR if >60 Egyptian (test code mL/min/1.73m\\ = EGFRAA) S\\2 EGFR if Non- >60 Estimate d Glomerular Egyptian (test code mL/min/1.73m\\ Filtrat ion Rate (eGFR) [...] management of c hronic kidney failure. [facility]-LufkinCT ABD/ PELVIS W/O [...] MD 12/24/20179:32 AMDictated By: WILEY VELÁZQUEZDate: 12/24/2017 09:38[facility] WITH AUTO DIFF 2017-12-24 09:26:00 Test Item [...] = 0.6 % 0.0-0.4 H IG%) AUTO [facility]FFMemorial [facility] Center-LufkinCT ABD/ PELVIS W/O CON (RENAL [...] on 3:19 AMCDT.Dictated By: MARVIN DOBBSDate: 06/21/2017 03:20[facility] – PLANOURINALYS WITH [id number] 03:20:00 Test Item Value Reference Range Interpretation Comments Color (test code = UCOLR) YELLOW Clarity (test code = UCLAR) CLEAR Glucose (test code = UGLUC) NEGATIVE NEGATIVE N Bilirubin (test code = UBILI) NEGATIVE NEGATIVE N Ketones (test code = UKET) NEGATIVE NEGATIVE N Specific Harts (test code = 1.020 1.005-1.030 A USPGR) [...] UBACT) None Seen None Seen,Trace N er [address] [place] [address]-[id number] 03:07:00 Test Item Value Reference Range Interpretation [...] ( 4 - SerumAlbumin)] EGFR if >60 Egyptian (test code mL/min/1.73m\\ = EGFRAA) S\\2 EGFR if Non- >60 Estimate d Glomerular Egyptian (test code mL/min/1.73m\\ Filtrat ion Rate (eGFR) [...] and management of c hronic kidney failure. [address]-fkinLIPASE, [id number] 03:07:00 Test Item Value Reference Range Interpretation Comments Lipase (test code = LIPA) 61 U/L 8-[address] [place] [address]-fkinCBC WITH AUTO [id number] 03:05:00 Test Item Value Reference Range Interpretation [...] code = 0.4 % 0.0-0.4 IG%) er [address] [place] [address]-[place]ufkinXR CHEST 2 PA [id number] 19:56:04 Procedure: XR CHEST 2 PA LATERALExam date: 05/13/2017 3:53 PMOrdering Provider: DR ASA BLOOMClinical Indication: fatigue, Chest painComparison: March 15, 2016Findings:Cardiomediastinal silhouette is within normal limits.The lungs are clear.No pleural effusion or pneumothorax. Osseous structures are nonacute.No evidence of active tuberculosis.Impression:No acute cardiopulmonary process.This final report was electronically signed by Dr Wiley Velázquez MD 05/13/20177:49 PMDictated By: WILEY VELÁZQUEZDate: 05/13/2017 19:55[facility] [id number] 16:53:00 Test Item Value Reference Range Interpretation [...] ( 4 - SerumAlbumin)] EGFR if >60 Egyptian (test code mL/min/1.73m\\ = EGFRAA) S\\2 EGFR if Non- >60 Estimate d Glomerular Egyptian (test code mL/min/1.73m\\ Filtrat ion Rate (eGFR) [...] management of c hronic kidney failure. [facility]kin[facility]2017-05-13 16:32:00 Test Item Value Reference [...] BE NOTED ON THE RE PORT. [facility]-LufkinURINALYSIS WITH [id number] 18:25:00 Test Item Value Reference Range Interpretation Comments Color (test code = UCOLR) YELLOW Clarity (test code = UCLAR) CLEAR Glucose (test code = UGLUC) NEGATIVE NEGATIVE N Bilirubin (test code = UBILI) NEGATIVE NEGATIVE N Ketones (test code = UKET) NEGATIVE NEGATIVE N Specific Harts (test code = 1.025 1.005-1.030 A USPGR) [...] UR MISC) None Seen None Seen N [facility] CenterkinHEPATIC FUNCTION PANEL (LIVER)2016-10-09 18:21:00 Test Item Value [...] code = 0.1 mg/dl 0.0-1.1 IBIL) [facility]-[id number] 18:21:00 Test Item Value Reference Range Interpretation [...] mg/dl 8.4-10.2 = CALC) EGFR if >60 Egyptian (test code mL/min/1.73m\\ = EGFRAA) S\\2 EGFR if Non- >60 Estimate d Glomerular Egyptian (test code mL/min/1.73m\\ Filtrat ion Rate (eGFR) [...] and management of c hronic kidney failure. [facility] WITH AUTO [id number] 18:04:00 Test Item Value Reference Range Interpretation [...] Auto (test code = 0 NRBC_AUTO) AUTO [facility]
[2022-06-27] MEDS ORDERED: TAMSULOSIN 0.4 MG SR CAP ONE (05:10)
[2022-06-27] MEDS ORDERED: HYDROMORPHONE HCL 1 MG/ML INJ ONE (05:10)
[2022-06-27] MEDS ORDERED: ONDANSETRON 4 MG/2 ML VIAL ONE (05:11)
[2022-06-27] MEDS ORDERED: MAGNESIUM SULFATE 1 gm IVPB 1 GM/100 ML BAG IV ONE (05:11)
--- NOTE | 2022-06-27 06:09 | EDPHYS ---
Physician Documentation [facility] Name: Hong Pace Age: 36 yrs Sex: Female : 1985 Arrival Date: 06/27/2022 Time: 04:47 Bed 4 Private MD: ED Physician Darwin Haque HPI: 06/27 05:03 This 36 yrs old Female presents to ER via Ambulatory with complaints of Possible Kidney rn Stone. 05:03 The patient complains of pain in the right mid back and right low back. The pain rn radiates to the abdomen. Onset: The symptoms/episode began/occurred just prior to arrival. Modifying factors: The symptoms are alleviated by nothing. the symptoms are aggravated by nothing. Associated signs and symptoms: Pertinent positives: nausea, Pertinent negatives: diarrhea, dizziness, fever. Severity of pain: At its worst the pain was moderate in the emergency department the pain is unchanged. The patient has experienced similar episodes in the past. The patient has not recently seen a physician. 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 Flu vaccine is up to date. - Social history:: Smoking status: Patient reports the use of cigarette tobacco products, denies chronic smoking, but will smoke occasionally. - Family history:: not pertinent. - Hospitalizations: : No recent hospitalization is reported. ROS: 05:03 Constitutional: Negative for fever, chills, and weight loss, Eyes: Negative for injury, rn pain, redness, and discharge, Cardiovascular: Negative for chest pain, palpitations, and edema, Respiratory: Negative for shortness of breath, cough, wheezing, and pleuritic chest pain, Abdomen/GI: + abd pain /nausea Back: + right flank pain MS/Extremity: Negative for injury and deformity, Skin: Negative for injury, rash, and discoloration, Neuro: Negative for headache, weakness, numbness, tingling, and seizure. Exam: 05:03 Constitutional: This is a well developed, well nourished patient who is awake, alert, rn rocking back and forth in bed Head/Face: Normocephalic, atraumatic. Cardiovascular: Tachycardic, regular. No pulse deficits. Respiratory: No increased work of breathing, no retractions or nasal flaring. Abdomen/GI: soft, mild RLQ tenderness, no rebound Back: No spinal tenderness. Skin: Warm, dry MS/ Extremity: Pulses equal, no cyanosis. Neuro: Awake and alert, GCS 15 Vital Signs: 05:00 BP 122 / 105; Pulse 105; Resp 18 S; Temp 98.5(O); Pulse Ox 99% on R/A; Weight 108.86 kg as6 (R); Height 5 ft. 4 in. (162.56 cm) (R); Pain 10/10; 05:40 BP 131 / 93; Pulse 103; Resp 18 S; Pulse Ox 98% on R/A; as6 05:00 Body Mass Index 41.20 (108.86 kg, 162.56 cm) as6 MDM: 04:54 Patient medically screened. rn 06:06 Differential diagnosis: nephrolithiasis, endometriosis. Data reviewed: vital signs, rn nurses notes, radiologic studies, CT scan, and as a result, I will discharge patient. Counseling: I had a detailed discussion with the patient and/or guardian regarding: the historical points, exam findings, and any diagnostic results supporting the discharge/admit diagnosis, radiology results, the need for outpatient follow up, to return to the emergency department if symptoms worsen or persist or if there are any questions or concerns that arise at home. Response to treatment: the patient's symptoms have mildly improved after treatment, and as a result, I will discharge patient. Special discussion: Based on the patient's Hx, exam, and Dx evaluation, there is no indication for emergent surgery or inpatient Tx. It is understood by the patient/guardian that if the Sx's persist or worsen they need to return immediately for re-evaluation. I discussed with the patient/guardian in detail that at this point there is no indication for admission to the hospital. It is understood, however, that if the symptoms persist or worsen the patient needs to return immediately for re-evaluation. ED course: NO acute findings on CT abdomen. IMproved vitals. Improved pain. Patient requests fentanyl or demerol prior to discharge, I recommend against such strong medication with normal CT. I reviewed previous CTs and several without kidney stones, 1 was with kidney stone. Explained to patient other etiologies of pain and offered other non-narcotic pain control and patient declines. Wants to go home and take tylenol at home. . 06/27 04:49 Order name: CT Stone Protocol rn 06/27 05:00 Order name: IV Start; Complete Time: 05:25 rn Administered Medications: 05:06 Not Given (Patient Refused): Ketorolac 30 mg IVP once as6 05:10 Drug: Flomax (tamsulosin) 0.4 mg Route: PO; as6 06:17 Follow up: Response: No adverse reaction as6 05:15 Drug: Zofran (Ondansetron) 4 mg Route: IVP; Site: Other; as6 06:16 Follow up: Response: No adverse reaction as6 05:15 Drug: Dilaudid (HYDROmorphone) 1 mg Route: IVP; Site: Other; as6 06:17 Follow up: Response: No adverse reaction as6 05:15 Drug: Magnesium Sulfate 1 grams Route: IVPB; Infused Over: 1 hrs; Site: Other; as6 06:17 Follow up: Response: No adverse reaction; IV Status: Completed infusion; IV Intake: as6 100ml Disposition Summary: 06/27/22 06:08 Discharge Ordered Location: Home rn Problem: new rn Symptoms: have improved rn Condition: Stable rn Diagnosis - Abdominal pain, unspecified rn Followup: rn - With: Private Physician - When: As needed - Reason: Recheck today's complaints, Re-evaluation by your physician Discharge Instructions: - Discharge Summary Sheet rn - Abdominal Pain, Adult rn - Pain Without a Known Cause rn Forms: - Medication Reconciliation Form rn - Thank You Letter rn - Antibiotic customer experience intern - Prescription Opioid Use rn Signatures: Dispatcher [employer] Darwin Alcala MD MD rn Slawson, Ashby, RN RN as6 Corrections: (The following items were deleted from the chart) 05:01 04:49 Urine Test ordered. rn rn
--- NOTE | 2022-06-27 06:09 | ER ---
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 Coronavirus screen: At this time, the client does not indicate any symptoms associated with coronavirus-19. Ebola Screen: No symptoms or risks identified at this time. Initial Sepsis Screen: Does the patient meet any 2 criteria? No. Patient's initial sepsis screen is negative. Does the patient have a suspected source of infection? No. Patient's initial sepsis screen is negative. Risk Assessment: Do you want to hurt yourself or someone else? Patient reports no desire to harm self or others. Onset of symptoms was June 27, 2022 at 04:00. 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 Flu vaccine is up to date. - Social history:: Smoking status: Patient reports the use of cigarette tobacco products, denies chronic smoking, but will smoke occasionally. - Family history:: not pertinent. - Hospitalizations: : No recent hospitalization is reported. Screenin:03 [facility] ED Fall Risk Assessment (Adult) Score/Fall Risk Level 0 - 2 = Low Risk. Abuse as6 screen: Denies threats or abuse. Denies injuries from another. Nutritional screening: No deficits noted. Tuberculosis screening: No symptoms or risk factors identified. Assessment: 05:02 General: Appears uncomfortable, Behavior is cooperative, restless. Pain: Complains of as6 pain in right flank. Neuro: Level of Consciousness is awake, alert, obeys commands, Oriented to person, place, time, situation. Cardiovascular: Capillary refill < 3 seconds Patient's skin is warm and dry. Respiratory: Respiratory effort is even, unlabored. GI: Reports nausea, vomiting. : Reports pain in right flank(s). 05:39 General: pt pacing in room. "can you please ask the doctor for more pain medicine?" . as6 Vital Signs: 05:00 BP 122 / 105; Pulse 105; Resp 18 S; Temp 98.5(O); Pulse Ox 99% on R/A; Weight 108.86 kg as6 (R); Height 5 ft. 4 in. (162.56 cm) (R); Pain 10/10; 05:40 BP 131 / 93; Pulse 103; Resp 18 S; Pulse Ox 98% on R/A; as6 05:00 Body Mass Index 41.20 (108.86 kg, 162.56 cm) as6 ED Course: 04:47 Patient arrived in ED. jj6 04:47 Darwin Haque MD is Attending Physician. rn 05:00 Uday Smith RN is Primary Nurse. as6 05:02 Triage completed. as6 05:02 Arm band placed on. as6 05:03 Placed in gown. Bed in low position. Call light in reach. Side rails up X2. as6 05:15 Inserted saline lock: 20 gauge in right ,using aseptic technique. breast. as6 05:35 CT Stone Protocol In Process Unspecified. EDMS 06:17 No provider procedures requiring assistance completed. IV discontinued, intact, as6 bleeding controlled, No redness/swelling at site. Pressure dressing applied. Administered Medications: 05:06 Not Given (Patient Refused): Ketorolac 30 mg IVP once as6 05:10 Drug: Flomax (tamsulosin) 0.4 mg Route: PO; as6 06:17 Follow up: Response: No adverse reaction as6 05:15 Drug: Zofran (Ondansetron) 4 mg Route: IVP; Site: Other; as6 06:16 Follow up: Response: No adverse reaction as6 05:15 Drug: Dilaudid (HYDROmorphone) 1 mg Route: IVP; Site: Other; as6 06:17 Follow up: Response: No adverse reaction as6 05:15 Drug: Magnesium Sulfate 1 grams Route: IVPB; Infused Over: 1 hrs; Site: Other; as6 06:17 Follow up: Response: No adverse reaction; IV Status: Completed infusion; IV Intake: as6 100ml Medication: 06:17 VIS not applicable for this client. as6 Intake: 06:17 IV: 100ml; Total: 100ml. as6 Outcome: 06:08 Discharge ordered by . rn 06:17 Discharged to home ambulatory. as6 06:17 Condition: stable 06:17 Discharge instructions given to patient, Instructed on discharge instructions, follow up and referral plans. Demonstrated understanding of instructions, follow-up care. 06:17 Patient left the ED. as6 Signatures: Dispatcher [employer] EDMS Darwin Haque MD MD rn Jeffries, Jennifer jj6 Slawson, Ashby, RN RN as6
[2022-06-27 06:27] VITALS: TEMP 98.5
[2022-06-27 06:33] VITALS: BP 131/93; O2SAT 98
--- NOTE | 2022-06-27 13:41 | RAD REPORT ---
EXAM DESCRIPTION: CT - Stone Protocol - 06/27/2022 6:50 am CLINICAL HISTORY: The patient is 36 years old and is Female; hx of stones, flank pain TECHNIQUE: Axial computed tomography images of the abdomen and pelvis without intravenous contrast. Sagittal and coronal reformatted images were created and reviewed. This CT exam was performed usi ng one or more of the following dose reduction techniques: automated exposure control, adjustment o f the mA and/or kV according to patient size, and/or use of iterative reconstruction technique. COMPARISON: June 05, 2022. FINDINGS: Lung bases: Unremarkable. No mass. No consolidation. ABDOMEN: Liver: Unremarkable. Gallbladder and bile ducts: Gallbladder is surgically absent. No ductal dilation. Pancreas: Unremarkable. No ductal dilation. Spleen: Unremarkable. No splenomegaly. Adrenals: Unremarkable. No mass. Kidneys and ureters: Nonobstructing calcifications in the kidneys. Stomach and bowel: Postsurgical changes in the stomach. Scattered colonic diverticula. No obstruction. No mucosal thickening. PELVIS: Appendix: No findings to suggest acute appendicitis. Bladder: Unremarkable. Reproductive: Uterus is not seen. ABDOMEN and PELVIS: Intraperitoneal space: Unremarkable. No free air. No significant fluid collection. Bones/joints: No acute fracture. No dislocation. Soft tissues: Unremarkable. Vasculature: Unremarkable. No abdominal aortic aneurysm. Lymph nodes: Unremarkable. No enlarged lymph nodes. IMPRESSION: No acute finding in the abdomen/pelvis. Electronically signed by: Eliseo Chung MD 06/27/2022 5:48 AM WORSHIP PASTOR Due to temporary technical issues with the PACS/Fluency reporting system, reports are being signed by the in house radiologists without review as a courtesy to insure prompt reporting. The interpreting radiologist is fully responsible for the content of the report.
== END 2022-06-27 06:17 | disposition home or self-care (01) ==
LOC: ER 04:45
DX: R10.9 Unspecified abdominal pain (principal)
CPT/HCPCS: 74176; 76377; J1170; J2405; J3475

== ENCOUNTER 2022-07-09 21:00 | Emergency (ER) | payer SELFPAY ==
--- OUTSIDE RECORDS SUMMARY | 2022-07-09 21:03 | XMS REPORT | Clinical Summary ---
:1985 Author Organization [facility] MD [facility] [place] Address [address] [place] [address] Care Team Providers Name Role Phone Keila [...] malignant melanoma of skin 10/26/2021 Travel after 07/09/2021 Immunizations Name Administration Dates Next Due Influenza [...] OVARIAN CYST SURGERY 08/29/2018 - Right 09/28/2018 [place] EXCISION MAL LESION 09/23/2018 Abdomen/Right Procedure : EXCISION OF TRUNK/ARM/LEG 0.6-1.0 CM MALIGNA NT LESION OF TRUNK, right epi gastric; Surgeon: Nicolasa Valentine MD; Location: [facility] OR; Service: SURG ON C - [...] 10/25/2022 Follow-Up Dermatology Lisbeth Shannon M D [address], [place] [address] (Wo rk) Health Maintenance Due Date Last Done Comments COVID-19 Vaccination (#1) 01/11/1987 Results Not on fileafter 07/09/2021 Advance Directives Code Status Date Activated Date Inactivated Comments Full Code 10/04/2018 8:21 PM 10/08/2018 5:55 PM Code Status Date Activated Date Inactivated Comments Full Code 09/23/2018 1:48 PM 09/23/2018 6:55 PM Care Teams Managing Editor Relationship Specialty Start Date End Date Keila Valentine MD PCP - General Surgical Oncology 08/26/18 [address] [place] [address] Navi Arango FNP PCP - External Primary Family Practice 09/08/18 [address] [place] [address]
--- OUTSIDE RECORDS SUMMARY | 2022-07-09 21:22 | XMS REPORT | Continuity of Care Document ---
:1985 Author Organization [facility] t Address [address] [place] [address] Care Team Providers Name Role Phone Keila Valentine MD Primary Care Physician Josué Arango Attending Clinician Unavailable SANTINO_Ingrid_Truman_ Attending Clinician Unavailable MAGDALENE LUCIA Attending Clinician Unavailable Magdalene Lucia MD Attending Clinician Unknown, Attending Attending Clinician Unavailable RIDGE PAGAN Attending Clinician Unavailable Ridge Pagan MD Attending Clinician Truman Quintero Attending Clinician Unavailable TRICE HARRIS Attending Clinician Unavailable Steven INSULATION BOARD CALENDER OPERATOR, Trice Attending Clinician Mohan INSULATION BOARD CALENDER OPERATOR, Ameena Attending Clinician AMEENA PRESTON Attending Clinician Unavailable Praveen Blas MD Attending Clinician EKTA BERMUDEZ Attending Clinician Unavailable PATRICK CARRANZA Attending Clinician Unavailable Olga Clements Attending Clinician Unavailable LEANNE HANNAH Attending Clinician Unavailable Leanne De Anda S Attending Clinician Eve Chaves RN Attending Clinician Unavailable Ebsonja INSULATION BOARD CALENDER OPERATOR, Patrick Attending Clinician Doctor Unassigned, [place] Attending Clinician Unavailable SETH DYKES Attending Clinician [...] Number Effective Date Expiration Date Abhinav durbin [id number] 1958 00:00:00 MEDI-SHARE C1 [id number] [facility] MEDI-SHARE C1 [id number] [facility] MEDI-SHARE C1 [id number] [facility] [id number] 1958 00:00:00 MEDI-SHARE C1 [id number] [facility] PHCS GENERIC [id number] 2018 00:00:00 Problems Condition Condition Condition Status [...] of preprocedu preprocedu 00:00: g of this [facility] 00 note examinasandra examindiana might be Gian payton different n from the Cancer original. 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 [facility] (LUF/LI V/SA) Pain in Pain in Problem Active [facility] pelvis pelvis [facility] (LUF/LI V/SA) Anxiety Anxiety Problem Active [facility] (LUF/LI V/SA) [id number] Endometrio Problem Active [facility] No known No known Disease Unive rs active active ity of problems problems [facility] Allergies, Adverse Reactions, Alerts Allergy Allergy Status Severity Reaction(s) Onset Inactive Treating Comm ents Source Name Type Date Date Clinician [place] DA Active [place] rash 2021-07 [facility] [place] [facility] ket[place] DA Active U rash [facility] 2[facility]07 [place] 00:[facility]: [facility] 00 [facility] KETOROLA DRUG Active Low Rash 2020-07 Univers C INGREDI 2- ity of 00:00: [place] 00 Medical Branch Ketorola Propensi Active Rash 2020-07 Univer s c ty to 2- ity of adverse 00:00: [place] reaction 00 [facility] Branch ket[place]ola DA Active [place] 2019-0 [facility] 9[facility]10 [facility] [place] ketorola DA Active U rash 2014-0 [facility] c 9-24 [place] 00:00: d 00 [facility] ketorola DA Active U 2015-0 [facility] c 9-24 [place] 00:00: d 00 Medical [place] Ketorola Drug Active Itching 2010- Univers c Allergy 1-19 ity of 00:00: [place] 00 MD [facility] 0 Drug Active Unknown [facility] Toradol DA Active Unknown Rash [facility] (LUF/LI V/SA) Family History Family Member Diagnosis Comments Start Date Stop Date Source Natural mother -Breast cancer [facility] MD Disla [facility] Social History Social Habit Start Date Stop Date Quantity Comments Source History of Tobacco [facility] - [facility] Exposure to 2022-04-27 2022-05-07 [facility] sure [facility] SARS-CoV-2 (event) 00:00:00 07:55:00 [facility] Tobacco use and 2021-08-29 2021-08-29 Smokeless Universit y of exposure 00:00:00 00:00:00 tobacco [facility]user [facility] Alcohol intake 2018-10-04 2018-10-04 Current University of 00:00:00 00:00:00 non-drinker of [facility] (finding) Cigarettes smoked 2018-09-04 2018-09-04 Univers ity of current (pack per 00:00:00 00:00:00 [facility] ) - Reported Cancer Ce nter Cigarette 2018-09-04 2018-09-04 University of pack-years 00:00:00 00:00:00 [facility] Sex Ass[birth year] At [birth year] Universit y of 00:00:00 00:00:00 [facility] Smoking Status Start Date Stop Date Source Tobacco [facility] consumption unknown Never smoked tobacco [facility] Former Smoker 2020-05-03 00:00:00 2020-05-03 [facility] Medical Ce nter Medications Ordered Filled Start Stop Current Ordering Indication Dosage Frequency Signature Comments Components Source Medication Medication Date Date Medication? Clinician (SIG) Name Name ondansetron 2021-07- No [id number] 8mg Univers (ZOFRAN-ODT -15 06-13 ity of ) 00:45: 23:45 [place] disintegrat 00 :00 Medical ing tablet Branch 8 mg ondansetron 2021-07- No [id number] 8mg 8 mg, Univers (ZOFRAN-ODT -15 06-13 Oral, ity of ) 00:45: 23:45 ONCE, 1 [place] disintegrat 00 :00 dose, On Medi felipa ing tablet Wed Branch 8 mg 06/13/22 at 1845, Routine benzonatate 2021-07 Yes [id number] 200mg Take 2 Univers 100 mg 2-14 capsules ity of capsule 00:00: by mouth [place] 00 every 8 Medical (eight) Branch hours as needed for Cough. ondansetron 2021-07 Yes [id number] 4mg Take 1 Univers 4 mg 2-14 tablet by ity of disintegrat 00:00: mouth [place] ing tablet 00 every 8 Medica l (eight) Branch hours as needed for Nausea and Vomiting (N/V). nirmatrelvi 2021-07 Yes [id number] 3{tbl} Take 3 Univers r-ritonavir 2-14 tablets by it y of (PAXLOVID, 00:00: mouth in [place] as EUA,) 300 00 the Medical mg (150 mg morning Branch x 2)-100 mg and 3 tablet tablets in the evening. ondansetron 2021-07 Yes [id number] 4mg Take 1 Univers 4 mg 2-14 tablet by ity of disintegrat 00:00: mouth [place] ing tablet 00 every 8 Medica l (eight) Branch hours as needed for Nausea and Vomiting (N/V). nirmatrelvi 2021-07 Yes [id number] 3{tbl} Take 3 Univers r-ritonavir 2-14 tablets by it y of (PAXLOVID, 00:00: mouth in [place] as EUA,) 300 00 the Medical mg (150 mg morning Branch x 2)-100 mg and 3 tablet tablets in the evening. promethazin 2021-07 Yes [id number] 5mL Take 5 mL Univers e-dextromet 2-14 by mouth 4 it y of horphan 00:00: (four) [place] 6.25-15 00 times Medical mg/5 mL daily as Branch syrup needed for Cough. nirmatrelvi 2021-07 No [id number] 3{tbl} Take 3 Univers r-ritonavir 2-14 12-14 tablets by i ty of (PAXLOVID, 00:00: 00:00 [place] EUA,) 300 00 :00 the Medical mg (150 mg morning Branch x 2)-100 mg and 3 tablet tablets in the evening. benzonatate 2021-07 No [id number] 200mg Take 2 Univers 100 mg 2-14 12-14 capsules ity of capsule 00:00: 00:00 by [...] n: Perioperat kieran Patient tamsulosin 2021-07 Yes [id number] .4mg Take 1 U nivers 0.4 mg 24 07-07 capsule by ity of hr capsule 00:00: mouth at [place] as 00 bedtime. Medical Branch tamsulosin 2021-07- No [id number] .4mg Take 1 Univers 0.4 mg 24 07-07 12-14 capsule by ity of hr capsule 00:00: [...] 1 Medical 10 mg dose, On Branch [facility] 02/19/22 at 1030, JOSE NaCl 0.9% 2021- No 1000mL at 999 Uni vers (NS) bolus 02-19 mL/hr, ity of infusion 15:30: 15:58 1,000 mL, [place] as 1,000 mL 00 :00 IV Medical Infusion, Branch ONCE, 1 dose, On [facility] 02/19/22 at 1030, JOSE morpHINE (4 2021- No 4mg 4 mg, Slow Univers mg/mL) 02-19 IV Push, ity of injection 4 14:45: 15:05 ONCE, 1 [place] mg 00 :00 dose, On Medical [facility] 02/19/22 at 0945, STAT ondansetron 2021- No 4mg 4 mg, Slow Univers (ZOFRAN 02-19 IV Push, ity of (PF)) 14:30: 15:05 ONCE, 1 [place] injection 4 00 :00 dose, On Medi felipa mg [facility] 02/19/22 at 0930, JOSE methylPREDN Yes [id number] Take by [employer] ISolCorengi 11-29 mouth ity of (MEDROL, 00:00: SEE-INSTRU [place] TE,) 4 mg 00 CTIONS. Medica l tablets follow Branch package directions methylPREDN 0 Yes [id number] Take by [employer] ISol[employer]i 11-29 mouth ity of (MEDROL, 00:00: SEE-INSTRU [place] TE,) 4 mg 00 CTIONS. Medica l tablets follow Branch package directions methylPREDN Yes [id number] Take by [facility] ISolone 11-29 mouth ity of (MEDROL, 00:00: SEE-INSTRU [place] TE,) 4 mg 00 CTIONS. Medica l tablets follow Branch package directions methylPREDN 2021- No [id number] Take by [facility] ISolone 11-29 12-14 mouth ity of (MEDROL, 00:00: 00:00 [place]IN[place] TE,) 4 mg 00 :00 CTIONS. Medica l tablets follow Branch package directions amoxicillin 2021- No [id number] 1{tbl} Take 1 Univers -clavulanat 11-29 tablet [...] estrogens, Yes Take by Univ ers conjugated 3- mouth. ity of (PREMARIN 16:19: [place] ORAL) 44 Medical Branch estrogens, Yes Take by Univ ers conjugated - mouth. ity of (PREMARIN 16:19: [place] ORAL) 44 Medical Branch estrogens, Yes Take by Univ ers conjugated -01 mouth. ity of (PREMARIN 16:19: [place] ORAL) 44 Medical Branch estrogens, Yes Take by Univ ers conjugated 3-01 mouth. ity of (PREMARIN 16:19: [place] ORAL) 44 Medical Branch estrogens, Yes Take by Univ ers conjugated 3-01 mouth. ity of (PREMARIN 16:19: [place] ORAL) 44 Medical Branch naproxen Yes [id number] 500mg Take 1 U nivers (NAPROSYN) 2-02 tablet by ity of 500 mg 00:00: mouth 2 [place] tablet 00 (two) Medical times Branch daily with meals. naproxen 2021-0 Yes [id number] 500mg Take 1 U nivers (NAPROSYN) 2-02 tablet by ity of 500 mg 00:00: mouth 2 [place] tablet 00 (two) Medical times Branch daily with meals. naproxen 2021-0 Yes [id number] 500mg Take 1 U nivers (NAPROSYN) 2-02 tablet by ity of 500 mg 00:00: mouth 2 [place] tablet 00 (two) Medical times Branch daily with meals. naproxen 2021-0 Yes [id number] 500mg Take 1 U nivers (NAPROSYN) 2-02 tablet by ity of 500 mg 00:00: mouth 2 [place] tablet 00 (two) Medical times Branch daily with meals. naproxen 2021-0 Yes [id number] 500mg Take 1 U nivers (NAPROSYN) 2-02 tablet by ity of 500 mg 00:00: mouth 2 [place] tablet 00 (two) Medical times Branch daily with meals. albuterol 2020-07 Yes [id number] 2{puff} Inhale 2 Univers 90 2-22 Puffs [...] Cough. Indication s: cough albuterol 2020-07 Yes [id number] 2{puff} Inhale 2 Univers 90 2-22 Puffs [...] Cough. Indication s: cough albuterol 2020-07 Yes [id number] 2{puff} Inhale 2 Univers 90 2-22 Puffs [...] Cough. Indication s: cough albuterol 2020-07 Yes [id number] 2{puff} Inhale 2 Univers 90 2-22 Puffs [...] Cough. Indication s: cough albuterol 2020-07 Yes [id number] 2{puff} Inhale 2 Univers 90 2-22 Puffs [...] [place] 00 EVERY DAY Medical IN THE [place] MORNING ON AN EMPTY STOMACH levothyroxi 2020-07 Yes TAKE 1 Univ ers ne 137 mcg 2-16 TABLET BY ity of tablet 00:00: MOUTH EVERY DAY Medical IN THE [place] MORNING ON AN EMPTY STOMACH acetaminoph acetaminoph [...] (PREMARIN 00:00: daily. [place] ORAL) [facility] Premarin 2018-07 Yes Kaywin 1 tablet Common 0-23 [facility] 00:[facility]: - [facility] 00 [facility] Premarin Premarin 2018-07 No 1{table QD Premarin 1.25 MG 1.25 MG 0-23 t} 1.25 MG 00:00: 00 estrogens, 2018-07 Yes Take by Univ ers conjugated 0-23 mouth ity of (PREMARIN 00:00: daily. [place] ORAL) 00 MD Gian payton [facility] estrogens, 2018-07 Yes Take by Univ ers conjugated 0-23 mouth ity of (PREMARIN 00:00: daily. [place] ORAL) 00 MD Gian payton [facility] estrogens, 2018-07 Yes Take by Univ ers conjugated 0-23 mouth ity of (PREMARIN 00:00: daily. [place] ORAL) 00 MD Gian payton [facility] estrogens, 2018-07 Yes Take by Univ ers conjugated 0-23 mouth ity of (PREMARIN 00:00: daily. [place] ORAL) 00 MD Gian payton [facility] estrogens, 2018-07 Yes Take by Univ ers conjugated 0-23 mouth ity of (PREMARIN 00:00: daily. [place] ORAL) 00 MD Chanmorena payton [facility] estrogens, 2018-07 Yes Take by Univ ers conjugated 0-23 mouth ity of (PREMARIN 00:00: daily. [place] ORAL) 00 [facility] estrogens, 2018-07 Yes Take by Univ ers conjugated 0-23 mouth ity of (PREMARIN 00:00: daily. [place] ORAL) 00 [facility] estrogens, 2018-07 Yes Take by Univ ers conjugated 0-23 mouth ity of (PREMARIN 00:00: daily. [place] ORAL) 00 [facility] estrogens, 2018-07 Yes Take by Univ ers conjugated 0-23 mouth ity of (PREMARIN 00:00: daily. [place] ORAL) 00 [facility] estrogens, 2018-07 Yes Take by Univ ers conjugated 0-23 mouth ity of (PREMARIN 00:00: daily. [place] ORAL) 00 [facility] estrogens, 2018-07 Yes Take by Univ ers conjugated 0-23 mouth ity of (PREMARIN 00:00: daily. [place] ORAL) 00 [facility] estrogens, 2018-07 Yes Take by Univ ers conjugated 0-23 mouth ity of (PREMARIN 00:00: daily. [place] ORAL) 00 [facility] Estradiol Estradiol 2018-07 Yes Kaywin 1 tablet Common 0-01 [facility] 00:[facility]: - [facility] 00 [facility] citalopram 0 Yes Univers (CeleXA) 40 9-10 ity of mg tablet 00:00: MD Gian payton [facility] citalopram 0 Yes Univers (CeleXA) 40 9-10 ity of mg tablet 00:00: MD Gian payton [facility] citalopram 2017-0 Yes Univers (CeleXA) 40 9-10 ity of mg tablet 00:00: MD Gian payton [facility] citalopram 2017-0 Yes Univers (CeleXA) 40 9-10 ity of mg tablet 00:00: MD Gian payton [facility] citalopram 2017-0 Yes Univers (CeleXA) 40 9-10 ity of mg tablet 00:00: MD Gian payton [facility] citalopram Yes Univers (CeleXA) 40 9-10 ity of mg tablet 00:00: MD Gian payton [facility] citalopram 0 Yes Univers (CeleXA) 40 9-10 ity of mg tablet 00:00: MD Gian payton [facility] citalopram 0 Yes Univers (CeleXA) 40 9-10 ity of mg tablet 00:00: MD Gian payton [facility] citalopra Yes Univers (CeleXA) 40 9-10 ity of mg tablet 00:00: MD Gian payton [facility] citalopram Yes Univers (CeleXA) 40 9-10 ity of mg tablet 00:00: MD Gian payton [facility] citalopra Yes Univers (CeleXA) 40 9-10 ity of mg tablet 00:00: MD Gian payton [facility] citalopra Yes Univers (CeleXA) 40 9-10 ity of mg tablet 00:00: MD Gian payton [facility] citalopra Yes Univers (CeleXA) 40 9-10 ity of mg tablet 00:00: MD Gian payton [facility] levothyroxi 0 Yes Univer s ne 175 mcg 8-10 ity of cap 00:00: MD Gian payton [facility] levothyroxi 0 Yes Univer s ne 175 mcg 8-10 ity of cap 00:00: MD Gian payton [facility] [place] levothyroxi 0 Yes Univer s ne 175 mcg 8-10 ity of cap 00:00: MD [facility] levothyroxi 0 Yes Univer s ne 175 mcg 8-10 ity of cap 00:00: MD Gian payton [facility] [place] levothyroxi 0 Yes Univer s ne 175 mcg 8-10 ity of cap 00:00: MD Gian payton [facility] levothyroxi 0 Yes Univer s ne 175 mcg 8-10 ity of cap 00:00: MD Gian payton [facility] levothyroxi 0 Yes Univer s ne 175 mcg 8-10 ity of cap 00:00: 00 MD Gian payton [facility] levothyroxi 2010-0 Yes Univer s ne 175 mcg 8-10 ity of cap 00:00: [place] 00 MD Gian payton [facility] levothyroxi 2010-0 Yes Univer s ne 175 mcg 8-10 ity of cap 00:00: [place] 00 Tristianbrennan payton [facility] levothyroxi 2010-0 Yes Univer s ne 175 mcg 8-10 ity of cap 00:00: [place] 00 Tristianbrennan payton [facility] levothyroxi 2010-0 Yes Univer s ne 175 mcg 8-10 ity of cap 00:00: [place] 00 Tristianbrennan payton [facility] levothyroxi 2010-0 Yes Univer s ne 175 mcg 8-10 ity of cap 00:00: [place] 00 Tristianbrennan payton [facility] levothyroxi 2010-0 Yes Univer s ne 175 mcg 8-10 ity of cap 00:00: [place] [facility] zolpidem 2006-0 Yes Univers (AMBIEN) 10 07-01 ity of mg tablet 00:00: [place] 00 MD Gian payton [facility] zolpidem 2006-0 Yes Univers (AMBIEN) 10 07-01 ity of mg tablet 00:00: [place] 00 MD Gian payton [facility] zolpidem 2007-0 Yes Univers (AMBIEN) 10 07-01 ity of mg tablet 00:00: [place] 00 MD Gian payton [facility] zolpidem 2007-0 Yes Univers (AMBIEN) 10 07-01 ity of mg tablet 00:00: [place] 00 MD Gian payton [facility] zolpidem 2007-0 Yes Univers (AMBIEN) 10 07-01 ity of mg tablet 00:00: [place] 00 MD Gian payton [facility] zolpidem 2007-0 Yes Univers (AMBIEN) 10 07-01 ity of mg tablet 00:00: [place] 00 MD Gian payton [facility] zolpidem 2007-0 Yes Univers (AMBIEN) 10 07-01 ity of mg tablet 00:00: [place] 00 MD Gian payton [facility] zolpidem 2007-0 Yes Univers (AMBIEN) 10 07-01 ity of mg tablet 00:00: [place] 00 MD Gian payton [facility] zolpidem 2007-0 Yes Univers (AMBIEN) 10 07-01 ity of mg tablet 00:00: [place] 00 MD [facility] zolpidem Yes Univers (AMBIEN) 10 07-01 ity of mg tablet 00:00: [place] 00 MD Gian payton [facility] zolpidem Yes Univers (AMBIEN) 10 07-01 ity of mg tablet 00:00: [place] 00 MD Gian payton [facility] zolpidem Yes Univers (AMBBANNER) 10 07-01 ity of mg tablet 00:00: [place] 00 MD Gian payton [facility] zolpidem Yes Univers (AMBIEN) 10 07-01 ity of mg tablet 00:00: [place] 00 [facility] acetaminoph acetaminoph Yes [address] [...] C [facility] conjugated conjugated Gutierrez es ([facility]) 1.25 ([facility]) 1.25 Mem oria MG Oral MG Oral [...] [facility] conjugated conjugated daily Olamide kes ([facility]) 1.25 ([facility]) 1.25 Mem oria MG Oral MG Oral l Tablet Tablet (LUF/LI V/SA) levothyroxi levothyroxi Yes 150ug 1xD orally [facility] daily [facility] (LUF/LI V/SA) Celexa Celexa Yes Kaywin 1 tablet Commo n Aiden [facility] Levothyroxi Levothyroxi Yes Kaywin 1 tablet Common ne Sodium ne Sodium Aiden on an Sp karla empty - [facility] stomach in [facility] Estradiol Estradiol Yes Kaywin 1 patch to Common Aiden skin [facility] Promethazin Promethazin No 1{table Promethazi e HCl 25 mg e HCl 25 mg t_as_ne ne HCl 25 eded} mg Estradiol Estradiol No 1{patch Estradiol 0.1 MG/24HR 0.1 MG/24HR _to_ski 0.1 n} MG/24HR Celexa 40 Celexa 40 No 1{table QD Celexa 40 MG MG t} MG [place] No 1{table QID [place] 7.5-325 MG 7.5-325 MG t_as_ne 7.5-325 MG [...] Sodium 150 MCG 150 MCG 150 MCG [place] No 1{table QID [place] 7.5-325 MG 7.5-325 MG t_as_ne 7.5-325 MG eded} Promethazin Promethazin No 1{table Promethazi e HCl 25 mg e HCl 25 mg t_as_ne ne HCl 25 eded} mg Estradiol Estradiol No 1{patch Estradiol 0.1 MG/24HR 0.1 MG/24HR _to_ski 0.1 n} MG/24HR Premarin Premarin No 1{table QD Premarin 1.25 MG 1.25 MG t} 1.25 MG [place] No 1{table QID [place] 7.5-325 MG 7.5-325 MG t_as_ne 7.5-325 MG [...] 1.25 MG 1.25 MG t} 1.25 MG [place] No 1{table QID [place] 7.5-325 MG 7.5-325 MG t_as_ne 7.5-325 MG [...] Influenza, 2011-03-30 Completed University of Unspecified 00:00:00 [place] MD [facility] [place] Tdap 2011-03-30 Completed University of 00:00:00 [place] [facility] Influenza, 2011-03-30 Completed University of Unspecified 00:00:00 [place] [facility] [place] Tdap 2011-03-30 Completed University of 00:00:00 [place] [facility] Influenza, 2011-03-30 Completed University of Unspecified 00:00:00 [place] [facility] [place] Tdap 2011-03-30 Completed University of 00:00:00 [place] [facility] Influenza, 2011-03-30 Completed University of Unspecified 00:00:00 [place] [facility] [place] Tdap 2011-03-30 Completed University of 00:00:00 [place] [facility] Influenza, 2011-03-30 Completed University of Unspecified 00:00:00 [place] [facility] [place] Tdap 2011-03-30 Completed University of 00:00:00 [place] [facility] Influenza, 2011-03-30 Completed University of Unspecified 00:00:00 [place] [facility] [place] Tdap 2011-03-30 Completed University of 00:00:00 [place] [facility] Influenza, 2011-03-30 Completed University of Unspecified 00:00:00 [place] [facility] [place] Tdap 2011-03-30 Completed University of 00:00:00 [place] [facility] Influenza, 2011-03-30 Completed University of Unspecified 00:00:00 [place] [facility] [place] Tdap 2011-03-30 Completed University of 00:00:00 [place] [facility] Influenza, 2011-03-30 Completed University of Unspecified 00:00:00 [place] [facility] [place] Tdap 2011-03-30 Completed University of 00:00:00 [place] [facility] Influenza, 2011-03-30 Completed University of Unspecified 00:00:00 [place] [facility] [place] Tdap 2011-03-30 Completed University of 00:00:00 [place] [facility] Influenza, 2011-03-30 Completed University of Unspecified 00:00:00 [place] [facility] [place] Tdap 2011-03-30 Completed University of 00:00:00 [place] Olvin banuelos [facility] Influenza, 2011-03-30 Completed University of Unspecified 00:00:00 [place] MD Hamilton ilir [facility] Tdap 2011-03-30 Completed University of 00:00:00 [place] Olvin banuelos [facility] Influenza, 2011-03-30 Completed University of Unspecified 00:00:00 [place] MD Hamilton aracelisstefano [facility] Tdap 2011-03-30 Completed University of 00:00:00 [place] [facility] Lubinharitha banuelos [facility] Influenza (IM) 2009-04-05 Completed [facility] 00:00:00 [facility] Influenza (IM) 2009-04-05 Completed [facility] 00:00:00 [facility] Influenza (IM) 2009-04-05 Completed [facility] 00:00:00 [facility] Influenza (IM) 2009-04-05 Completed [facility] 00:00:00 [facility] Influenza (IM) 2009-04-05 Completed [facility] 00:00:00 [facility] Influenza (IM) 2009-04-05 Completed [facility] 00:00:00 [facility] Influenza (IM) 2009-04-05 Completed [facility] 00:00:00 [facility] Influenza (IM) 2009-04-05 Completed [facility] 00:00:00 [facility] Influenza (IM) 2009-04-05 Completed [facility] 00:00:00 [facility] Influenza (IM) 2009-04-05 Completed [facility] 00:00:00 [facility] Influenza (IM) 2009-04-05 Completed [facility] 00:00:00 [facility] Influenza (IM) 2009-04-05 Completed [facility] 00:00:00 [facility] Influenza (IM) 2009-04-05 Completed [facility] 00:00:00 [facility] Vital Signs Vital Name Observation Time Observation Value Comments Source Systolic blood 2022-06-13 23:28:00 132 mm[Hg] [facility] Diastolic blood 2022-06-13 23:28:00 83 mm[Hg] [facility] Heart rate 2022-06-13 23:28:00 107 /min [facility] Body temperature 2022-06-13 23:28:00 37.17 Ericka [facility] Respiratory rate 2022-06-13 23:28:00 16 /min [facility] Body height 2022-06-13 23:28:00 162.6 cm [facility] Body weight 2022-06-13 23:28:00 102.15 kg [facility] BMI 2022-06-13 23:28:00 38.66 kg/m2 [facility] Oxygen saturation in 2022-06-13 23:28:00 96 /min [facility] Arterial blood by [facility] Pulse oximetry Branch Systolic blood 2022-05-07 14:46:22 138 mm[Hg] [facility] Diastolic blood 2022-05-07 14:46:22 88 mm[Hg] [facility] Heart rate 2022-05-07 14:46:22 89 /min [facility] Respiratory rate 2022-05-07 14:46:22 20 /min [facility] Oxygen saturation in 2022-05-07 14:46:22 98 /min [facility] Arterial blood by [facility] Pulse oximetry Branch Body temperature 2022-05-07 14:07:33 37 Ericka [facility] Body height 2022-05-07 13:56:00 162.6 cm [facility] Body weight 2022-05-07 13:56:00 108.863 kg [facility] BMI 2022-05-07 13:56:00 41.20 kg/m2 [facility] Systolic blood 2022-02-19 14:13:00 156 mm[Hg] [facility] Diastolic blood 2022-02-19 14:13:00 94 mm[Hg] [facility] Heart rate 2022-02-19 14:13:00 111 /min [facility] Body temperature 2022-02-19 14:13:00 37.11 Ericka [facility] Respiratory rate 2022-02-19 14:13:00 22 /min [facility] Body height 2022-02-19 14:13:00 162.6 cm [facility] Body weight 2022-02-19 14:13:00 104.327 kg [facility] BMI 2022-02-19 14:13:00 39.48 kg/m2 [facility] Oxygen saturation in 2022-02-19 14:13:00 99 /min [facility] Arterial blood by [employer] Pulse oximetry Branch Systolic blood 2021-11-29 22:40:00 116 mm[Hg] [facility] [place] [facility] Diastolic blood 2021-11-29 22:40:00 85 mm[Hg] [facility] pressure [facility] Heart rate 2021-11-29 22:40:00 87 /min [facility] Body temperature 2021-11-29 22:40:00 37.28 Ericka [facility] [place] [facility] Respiratory rate 2021-11-29 22:40:00 16 /min [facility] [place] [facility] Body height 2021-11-29 22:40:00 162.6 cm [facility] Body weight 2021-11-29 22:40:00 103.874 kg [facility] BMI 2021-11-29 22:40:00 39.31 kg/m2 [facility] Oxygen saturation in 2021-11-29 22:40:00 98 /min [facility] Arterial blood by [employer] Pulse oximetry Branch Height 2021-04-23 00:58:00 [...] [facility] Heart rate 2021-10-26 15:16:33 92 /min [facility] Respiratory rate 2021-10-26 15:16:33 16 /min [facility] Oxygen saturation in 2021-10-26 15:16:33 98 /min [facility] Arterial blood by Jeffrey muñoz Pulse oximetry [facility] Body Temperature 2021-04-23 00:58:00 97.8 [degF] [facility] (LUF/DAVID/SA) Pulse Rate 2021-04-23 00:58:00 116 /min [facility] (LUF/DAVID/SA) Respiratory Rate 2021-04-23 00:58:00 18 /min [facility] (F/DAVID/SA) O2% BldC Oximetry 2021-04-23 00:58:00 99 % [facility] (LUF/DAVID/SA) BP Systolic 2021-04-23 00:58:00 111 mm[Hg] [facility] (LUF/DAVID/SA) BP Diastolic 2021-04-23 00:58:00 77 mm[Hg] [facility] (LUF/DAVID/SA) Height 2021-04-23 00:58:00 64 [in_i] [facility] (LUF/DAVID/SA) Weight 2021-04-23 00:58:00 105.1 kg [facility] (LUF/DAVID/SA) BMI (Body Mass 2021-04-23 00:58:00 40 kg/m2 [facility]) [facility] (LUF/DAVID/SA) Body Temperature 2021-03-24 10:53:00 98.6 [degF] [facility] (LUF/DAVID/SA) Pulse Rate 2021-03-24 10:53:00 87 /min [facility] (LUF/DAVID/SA) Respiratory Rate 2021-03-24 10:53:00 18 /min [facility] (F/DAVID/SA) O2% BldC Oximetry 2021-03-24 10:53:00 97 % [facility] (LUF/DAVID/SA) BP Systolic 2021-03-24 10:53:00 120 mm[Hg] [facility] (LUF/DAVID/SA) BP Diastolic 2021-03-24 10:53:00 86 mm[Hg] [facility] (LUF/DAVID/SA) Height 2021-03-24 10:53:00 64 [in_i] [facility] (LUF/DAVID/SA) Weight 2021-03-24 10:53:00 105 kg [facility] (LUF/DAVID/SA) BMI (Body Mass 2021-03-24 10:53:00 40 kg/m2 [facility]) [facility] (LUF/DAVID/SA) Body Temperature 2021-03-10 10:55:00 98.4 [degF] [facility] (LUF/DAVID/SA) Pulse Rate 2021-03-10 10:55:00 85 /min [facility] (LUF/DAVID/SA) Respiratory Rate 2021-03-10 10:55:00 20 /min [facility] (LUF/DAVID/SA) O2% BldC Oximetry 2021-03-10 10:55:00 100 % [facility] (LUF/DAVID/SA) BP Systolic 2021-03-10 10:55:00 140 mm[Hg] [facility] (LUF/DAVID/SA) BP Diastolic 2021-03-10 10:55:00 98 mm[Hg] [facility] (LUF/DAVID/SA) Height 2021-03-10 10:55:00 64 [in_i] [facility] (F/DAVID/SA) Weight 2021-03-10 10:55:00 105.2 kg [facility] (LUF/DAVID/SA) BMI (Body Mass 2021-03-10 10:55:00 40 kg/m2 [facility] (LUF/DAVID/SA) Pulse Rate 2021-02-23 12:32:00 67 /min [facility] (LUF/DAVID/SA) O2% BldC Oximetry 2021-02-23 12:32:00 98 % [facility] (F/DAVID/SA) BP Systolic 2021-02-23 12:32:00 112 mm[Hg] [facility] (LUF/DAVID/SA) BP Diastolic 2021-02-23 12:32:00 70 mm[Hg] [facility] (LUF/DAVID/SA) Heart Rate 2021-02-23 11:16:00 64 /min [facility] (LUF/DAVID/SA) Respiratory Rate 2021-02-23 11:16:00 14 /min [facility] (F/DAVID/SA) Body Temperature 2021-02-23 08:24:00 98.1 [degF] [facility] (LUF/DAVID/SA) Height 2021-02-23 08:24:00 64 [in_i] [facility] (F/DAVID/SA) Weight 2021-02-23 08:24:00 110 kg [facility] (LUF/DAVID/SA) BMI (Body Mass 2021-02-23 08:24:00 41.9 kg/m2 [facility] (LUF/DAVID/SA) Heart Rate 2021-01-10 01:46:00 93 /min [facility] (LUF/DAVID/SA) Pulse Rate 2021-01-10 01:46:00 95 /min [facility] (LUF/DAVID/SA) Respiratory Rate 2021-01-10 01:46:00 16 /min [facility] (F/DAVID/SA) O2% BldC Oximetry 2021-01-10 01:46:00 97 % [facility] (F/DAVID/SA) BP Systolic 2021-01-10 01:46:00 103 mm[Hg] [facility] (LUF/DAVID/SA) BP Diastolic 2021-01-10 01:46:00 71 mm[Hg] [facility] (F/DAVID/SA) Weight 2021-01-10 00:53:00 102 kg [facility] (F/DAVID/SA) Body Temperature 2021-01-10 00:47:00 98.6 [degF] [facility] (F/DAVID/SA) Pulse Rate 2020-12-12 14:20:00 87 /min [facility] (F/DAVID/SA) O2% BldC Oximetry 2020-12-12 14:20:00 98 % [facility] (LUF/DAVID/SA) BP Systolic 2020-12-12 14:20:00 128 mm[Hg] [facility] (LUF/DAVID/SA) BP Diastolic 2020-12-12 14:20:00 86 mm[Hg] [facility] (F/DAVID/SA) Body Temperature 2020-12-12 12:39:00 98.9 [degF] [facility] (F/DAVID/SA) Respiratory Rate 2020-12-12 12:39:00 20 /min [facility] (F/DAVID/SA) Weight 2020-12-12 12:39:00 102 kg [facility] (LUF/DAVID/SA) Body Temperature 2020-12-08 10:27:00 98.6 [degF] [facility] (LUF/DAVID/SA) Pulse Rate 2020-12-08 10:27:00 79 /min [facility] (LUF/DAVID/SA) Respiratory Rate 2020-12-08 10:27:00 16 /min [facility] (LUF/DAVID/SA) O2% BldC Oximetry 2020-12-08 10:27:00 99 % [facility] (LUF/DAVID/SA) BP Systolic 2020-12-08 10:27:00 111 mm[Hg] [facility] (LUF/DAVID/SA) BP Diastolic 2020-12-08 10:27:00 57 mm[Hg] [facility] (LUF/DAVID/SA) Weight 2020-12-08 10:27:00 103 kg [facility] (LUF/DAVID/SA) Body Temperature 2020-11-25 00:27:00 97.9 [degF] [facility] (LUF/DAVID/SA) Pulse Rate 2020-11-25 00:27:00 82 /min [facility] (LUF/DAVID/SA) Respiratory Rate 2020-11-25 00:27:00 17 /min [facility] (LUF/DAVID/SA) O2% BldC Oximetry 2020-11-25 00:27:00 98 % [facility] (LUF/DAVID/SA) BP Systolic 2020-11-25 00:27:00 109 mm[Hg] [facility] (LUF/DAVID/SA) BP Diastolic 2020-11-25 00:27:00 62 mm[Hg] [facility] (LUF/DAVID/SA) Heart Rate 2020-11-21 09:30:00 75 /min [facility] (LUF/DAVID/SA) Respiratory Rate 2020-11-21 09:30:00 14 /min [facility] (LUF/DAVID/SA) BP Systolic 2020-11-21 09:30:00 120 mm[Hg] [facility] (LUF/DAVID/SA) BP Diastolic 2020-11-21 09:30:00 76 mm[Hg] [facility] (LUF/DAVID/SA) Body Temperature 2020-11-21 07:15:00 98.1 [degF] [facility] (LUF/DAVID/SA) Pulse Rate 2020-11-21 07:15:00 103 /min [facility] (LUF/DAVID/SA) O2% BldC Oximetry 2020-11-21 07:15:00 100 % [facility] (LUF/DAVID/SA) Height 2020-11-21 07:15:00 64 [in_i] [facility] (F/DAVID/SA) Weight 2020-11-21 07:15:00 103.1 kg [facility] (LUF/DAVID/SA) BMI (Body Mass 2020-11-21 07:15:00 39.2 kg/m2 [facility] (LUF/DAVID/SA) Heart Rate 2020-11-14 13:30:00 69 /min [facility] (LUF/DAVID/SA) Pulse Rate 2020-11-14 13:30:00 70 /min [facility] (LUF/DAVID/SA) Respiratory Rate 2020-11-14 13:30:00 10 /min [facility] (LUF/DAVID/SA) O2% BldC Oximetry 2020-11-14 13:30:00 96 % [facility] (LUF/DAVID/SA) BP Systolic 2020-11-14 13:30:00 103 mm[Hg] [facility] (LUF/DAVID/SA) BP Diastolic 2020-11-14 13:30:00 77 mm[Hg] [facility] (LUF/DAVID/SA) Body Temperature 2020-11-14 09:47:00 97.4 [degF] [facility] (LUF/DAVID/SA) Weight 2020-11-14 09:47:00 103 kg [facility] (LUF/DAVID/SA) Body Temperature 2020-11-08 08:32:00 98.1 [degF] [facility] (LUF/DAVID/SA) Pulse Rate 2020-11-08 08:32:00 82 /min [facility] (LUF/DAVID/SA) Respiratory Rate 2020-11-08 08:32:00 20 /min [facility] (LUF/DAVID/SA) O2% BldC Oximetry 2020-11-08 08:32:00 100 % [facility] (LUF/DAVID/SA) BP Systolic 2020-11-08 08:32:00 129 mm[Hg] [facility] (LUF/DAVID/SA) BP Diastolic 2020-11-08 08:32:00 72 mm[Hg] [facility] (LUF/DAVID/SA) Height 2020-11-08 08:32:00 64 [in_i] [facility] (F/DAVID/SA) Weight 2020-11-08 08:32:00 103.1 kg [facility] (LUF/DAVDI/SA) BMI (Body Mass 2020-11-08 08:32:00 39.2 kg/m2 [facility] (LUF/DAVID/SA) Body Temperature 2020-11-01 00:58:00 98.7 [degF] [facility] (LUF/DAVID/SA) Pulse Rate 2020-11-01 00:58:00 104 /min [facility] (LUF/DAVID/SA) Respiratory Rate 2020-11-01 00:58:00 20 /min [facility] (LUF/DAVID/SA) O2% BldC Oximetry 2020-11-01 00:58:00 99 % [facility] (LUF/DAVID/SA) BP Systolic 2020-11-01 00:58:00 133 mm[Hg] [facility] (LUF/DAVID/SA) BP Diastolic 2020-11-01 00:58:00 101 mm[Hg] [facility] (LUF/DAVID/SA) Height 2020-11-01 00:53:00 65 [in_i] [facility] (LUF/DAVID/SA) Weight 2020-11-01 00:53:00 103 kg [facility] (LUF/DAVID/SA) BMI (Body Mass 2020-11-01 00:53:00 37.8 kg/m2 [facility] Index) [facility] (LUF/DAVID/SA) Body Temperature 2020-10-04 23:51:00 98 [degF] [facility] (LUF/DAVID/SA) Pulse Rate 2020-10-04 23:51:00 96 /min [facility] (LUF/DAVID/SA) Respiratory Rate 2020-10-04 23:51:00 20 /min [facility] (F/DAVID/SA) O2% BldC Oximetry 2020-10-04 23:51:00 98 % [facility] (LUF/DAVID/SA) BP Systolic 2020-10-04 23:51:00 125 mm[Hg] [facility] (LUF/DAVID/SA) BP Diastolic 2020-10-04 23:51:00 73 mm[Hg] [facility] (F/DAVID/SA) Height 2020-10-04 23:47:00 65 [in_i] [facility] (F/DAVID/SA) Weight 2020-10-04 23:47:00 102.6 kg [facility] (LUF/DAVID/SA) BMI (Body Mass 2020-10-04 23:47:00 37.6 kg/m2 [facility]) [facility] (LUF/DAVID/SA) Body Temperature 2020-09-18 01:44:00 98.3 [degF] [facility] (LUF/DAVID/SA) Pulse Rate 2020-09-18 01:44:00 116 /min [facility] (F/DAVID/SA) Respiratory Rate 2020-09-18 01:44:00 20 /min [facility] (F/DAVID/SA) O2% BldC Oximetry 2020-09-18 01:44:00 99 % [facility] (LUF/DAVID/SA) BP Systolic 2020-09-18 01:44:00 127 mm[Hg] [facility] (LUF/DAVID/SA) BP Diastolic 2020-09-18 01:44:00 83 mm[Hg] [facility] (LUF/DAVID/SA) Height 2020-09-18 01:40:00 64 [in_i] [facility] (LUF/DAVID/SA) Weight 2020-09-18 01:40:00 102.8 kg [facility] (LUF/DAVID/SA) BMI (Body Mass 2020-09-18 01:40:00 39.1 kg/m2 [facility] Index) [facility] (LUF/DAVID/SA) Pulse Rate 2020-09-12 02:16:00 88 /min [facility] (LUF/DAVID/SA) O2% BldC Oximetry 2020-09-12 02:16:00 98 % [facility] (LUF/DAVID/SA) BP Systolic 2020-09-12 02:16:00 113 mm[Hg] [facility] (LUF/DAVID/SA) BP Diastolic 2020-09-12 02:16:00 64 mm[Hg] [facility] (LUF/DAVID/SA) Body Temperature 2020-09-12 00:56:00 97.9 [degF] [facility] (F/DAVID/SA) Respiratory Rate 2020-09-12 00:56:00 18 /min [facility] (LUF/DAVID/SA) Height 2020-09-12 00:50:00 65 [in_i] [facility] (LUF/DAVID/SA) Weight 2020-09-12 00:50:00 104.5 kg [facility] (LUF/DAVID/SA) BMI (Body Mass 2020-09-12 00:50:00 38.3 kg/m2 [facility] Index) [facility] (LUF/DAVID/SA) Pulse Rate 2020-08-22 03:16:00 100 /min [facility] (F/DAVID/SA) O2% BldC Oximetry 2020-08-22 03:16:00 95 % [facility] (LUF/DAVID/SA) BP Systolic 2020-08-22 03:16:00 129 mm[Hg] [facility] (LUF/DAVID/SA) BP Diastolic 2020-08-22 03:16:00 88 mm[Hg] [facility] (LUF/DAVID/SA) Body Temperature 2020-08-22 01:35:00 98.4 [degF] [facility] (LUF/DAVID/SA) Respiratory Rate 2020-08-22 01:35:00 20 /min [facility] (LUF/DAVID/SA) Height 2020-08-22 01:35:00 64 [in_i] [facility] (LUF/DAVID/SA) Weight 2020-08-22 01:35:00 102 kg [facility] (LUF/DAVID/SA) BMI (Body Mass 2020-08-22 01:35:00 38.8 kg/m2 [facility]) [facility] (LUF/DAVID/SA) Pulse Rate 2020-08-06 03:31:00 83 /min [facility] (LUF/DAVID/SA) O2% BldC Oximetry 2020-08-06 03:31:00 96 % [facility] (LUF/DAVID/SA) BP Systolic 2020-08-06 03:31:00 127 mm[Hg] [facility] (LUF/DAVID/SA) BP Diastolic 2020-08-06 03:31:00 82 mm[Hg] [facility] (LUF/DAVID/SA) Body Temperature 2020-08-06 01:45:00 98 [degF] [facility] (LUF/DAVID/SA) Respiratory Rate 2020-08-06 01:45:00 20 /min [facility] (LUF/DAVID/SA) Height 2020-08-06 01:39:00 66 [in_i] [facility] (LUF/DAVID/SA) Weight 2020-08-06 01:39:00 104.2 kg [facility] (LUF/DAVID/SA) BMI (Body Mass 2020-08-06 01:39:00 37.3 kg/m2 [facility]) [facility] (LUF/DAVID/SA) Pulse Rate 2020-07-19 11:16:00 67 /min [facility] (LUF/DAVID/SA) O2% BldC Oximetry 2020-07-19 11:16:00 94 % [facility] (LUF/DAVID/SA) BP Systolic 2020-07-19 11:16:00 101 mm[Hg] [facility] (LUF/DAVID/SA) BP Diastolic 2020-07-19 11:16:00 63 mm[Hg] [facility] (LUF/DAVID/SA) Body Temperature 2020-07-19 07:50:00 98 [degF] [facility] (LUF/DAVID/SA) Respiratory Rate 2020-07-19 07:50:00 18 /min [facility] (F/DAVID/SA) Weight 2020-07-19 07:50:00 100 kg [facility] (F/DAVID/SA) Heart Rate 2020-07-05 04:46:00 80 /min [facility] (F/DAVID/SA) Respiratory Rate 2020-07-05 04:46:00 15 /min [facility] (LUF/DAVID/SA) BP Systolic 2020-07-05 04:46:00 134 mm[Hg] [facility] (LUF/DAVID/SA) BP Diastolic 2020-07-05 04:46:00 60 mm[Hg] [facility] (LUF/DAVID/SA) Body Temperature 2020-07-05 02:57:00 98 [degF] [facility] (F/DAVID/SA) Pulse Rate 2020-07-05 02:57:00 82 /min [facility] (F/DAVID/SA) O2% BldC Oximetry 2020-07-05 02:57:00 99 % [facility] (F/DAVID/SA) Height 2020-07-05 02:50:00 65 [in_i] [facility] (F/DAVID/SA) Weight 2020-07-05 02:50:00 102.1 kg [facility] (LUF/DAVID/SA) BMI (Body Mass 2020-07-05 02:50:00 37.5 kg/m2 [facility] (LUF/DAVID/SA) Body Temperature 2020-06-07 13:38:00 98.5 [degF] [facility] (LUF/DAVID/SA) Pulse Rate 2020-06-07 13:38:00 95 /min [facility] (LUF/DAVID/SA) Respiratory Rate 2020-06-07 13:38:00 20 /min [facility] (LUF/DAVID/SA) O2% BldC Oximetry 2020-06-07 13:38:00 97 % [facility] (LUF/DAVID/SA) BP Systolic 2020-06-07 13:38:00 129 mm[Hg] [facility] (LUF/DAVID/SA) BP Diastolic 2020-06-07 13:38:00 73 mm[Hg] [facility] (LUF/DAVID/SA) Height 2020-06-07 13:38:00 64 [in_i] [facility] (LUF/DAVID/SA) Weight 2020-06-07 13:38:00 99.79 kg [facility] (LUF/DAVID/SA) BMI (Body Mass 2020-06-07 13:38:00 38 kg/m2 [facility] (LUF/DAVID/SA) Body Temperature 2020-05-31 09:45:00 99.6 [degF] [facility] (LUF/DAVID/SA) Pulse Rate 2020-05-31 09:45:00 86 /min [facility] (LUF/DAVID/SA) Respiratory Rate 2020-05-31 09:45:00 18 /min [facility] (LUF/DAVID/SA) O2% BldC Oximetry 2020-05-31 09:45:00 98 % [facility] (LUF/DAVID/SA) BP Systolic 2020-05-31 09:45:00 118 mm[Hg] [facility] (LUF/DAVID/SA) BP Diastolic 2020-05-31 09:45:00 78 mm[Hg] [facility] (LUF/DAVID/SA) Height 2020-05-31 09:45:00 64 [in_i] [facility] (LUF/DAVID/SA) Weight 2020-05-31 09:45:00 99.79 kg [facility] (LUF/DAVID/SA) BMI (Body Mass 2020-05-31 09:45:00 38 kg/m2 [facility]) [facility] (LUF/DAVID/SA) Heart Rate 2020-04-25 20:01:00 69 /min [facility] (LUF/DAVID/SA) Pulse Rate 2020-04-25 20:01:00 71 /min [facility] (LUF/DAVID/SA) Respiratory Rate 2020-04-25 20:01:00 18 /min [facility] (LUF/DAVID/SA) O2% BldC Oximetry 2020-04-25 20:01:00 100 % [facility] (LUF/DAVID/SA) BP Systolic 2020-04-25 20:01:00 126 mm[Hg] [facility] (LUF/DAVID/SA) BP Diastolic 2020-04-25 20:01:00 86 mm[Hg] [facility] (LUF/DAVID/SA) Body Temperature 2020-04-25 16:50:00 98.4 [degF] [facility] (F/DAVID/SA) Height 2020-04-25 16:50:00 64 [in_i] [facility] (F/DAVID/SA) Weight 2020-04-25 16:50:00 220 [lb_av] [facility] (LUF/DAVID/SA) BMI (Body Mass 2020-04-25 16:50:00 38 kg/m2 [facility]) [facility] (LUF/DAVID/SA) Heart Rate 2020-03-20 18:18:00 112 /min [facility] (LUF/DAVID/SA) Pulse Rate 2020-03-20 18:16:00 93 /min [facility] (LUF/DAVID/SA) O2% BldC Oximetry 2020-03-20 18:16:00 92 % [facility] (LUF/DAVID/SA) BP Systolic 2020-03-20 18:16:00 127 mm[Hg] [facility] (LUF/DAVID/SA) BP Diastolic 2020-03-20 18:16:00 85 mm[Hg] [facility] (LUF/DAVID/SA) Body Temperature 2020-03-20 17:17:00 99.2 [degF] [facility] (LUF/DAVID/SA) Respiratory Rate 2020-03-20 17:17:00 19 /min [facility] (LUF/DAVID/SA) Height 2020-03-20 17:17:00 64 [in_i] [facility] (LUF/DAVID/SA) Weight 2020-03-20 17:17:00 106.9 kg [facility] (LUF/DAVID/SA) BMI (Body Mass 2020-03-20 17:17:00 40.7 kg/m2 [facility] (LUF/DAVID/[facility]) Respiratory Rate 2020-03-17 10:33:00 16 /min [facility] ([facility]ID/[facility]) Body Temperature 2020-03-17 07:54:00 97.9 [degF] [facility] ([facility]F/[facility]ID/[facility]) Pulse Rate 2020-03-17 07:54:00 83 /min [facility] (LUF/[facility]VID/[facility]) O2% BldC Oximetry 2020-03-17 07:54:00 96 % [facility] (LUF/[facility]ID/[facility]) BP Systolic 2020-03-17 07:54:00 107 mm[Hg] [facility] (LUF/[facility]VID/SA) BP Diastolic 2020-03-17 07:54:00 75 mm[Hg] [facility] (LUF/[facility]VID/SA) Weight 2020-03-17 00:09:00 105.6 kg [facility] (LUF/[facility]ID/[facility]) Heart Rate 2020-03-13 15:46:00 81 /min [facility] (LU[facility]ID/[facility]) Height 2020-03-13 15:31:00 64 [in_i] [facility] ([facility]ID/[facility]) Body Temperature 2020-03-02 15:20:00 98.6 [degF] [facility] ([facility]) Pulse Rate 2020-03-02 15:20:00 86 /min [facility] ([facility]F/[facility]ID/[facility]) Respiratory Rate 2020-03-02 15:20:00 18 /min [facility] ([facility]ID/[facility]) O2% BldC Oximetry 2020-03-02 15:20:00 99 % [facility] ([facility]F/[facility]ID/[facility]) BP Systolic 2020-03-02 15:20:00 131 mm[Hg] [facility] (LUF/[facility]VID/SA) BP Diastolic 2020-03-02 15:20:00 85 mm[Hg] [facility] ([facility]F/[facility]ID/[facility]) Height 2020-03-01 10:54:00 64 [in_i] [facility] (LUF/[facility]ID/SA) Weight 2020-03-01 10:54:00 102 kg [facility] (LUF/[facility]VID/SA) BMI (Body Mass 2020-03-01 10:54:00 38.8 kg/m2 [facility] (LUF/DAVID/SA) Respiratory Rate 2020-02-27 07:47:00 16 /min [facility] ([facility]F/[facility]ID/[facility]) Body Temperature 2020-02-27 07:32:00 98.2 [degF] [facility] ([facility]F/[facility]) Pulse Rate 2020-02-27 07:32:00 94 /min [facility] (LUF/DAVID/SA) O2% BldC Oximetry 2020-02-27 07:32:00 95 % [facility] (LUF/DAVID/SA) BP Systolic 2020-02-27 07:32:00 111 mm[Hg] [facility] (LUF/DAVID/SA) BP Diastolic 2020-02-27 07:32:00 56 mm[Hg] [facility] (LUF/DAVID/SA) Weight 2020-02-26 02:09:00 99.6 kg [facility] (LUF/DAVID/SA) Height 2020-02-25 10:03:00 64 [in_i] [facility] (LUF/DAVID/SA) Body Temperature 2020-02-25 00:52:00 97.9 [degF] [facility] (LUF/DAVID/SA) Pulse Rate 2020-02-25 00:52:00 118 /min [facility] (LUF/DAVID/SA) Respiratory Rate 2020-02-25 00:52:00 18 /min [facility] (LUF/DAVID/SA) O2% BldC Oximetry 2020-02-25 00:52:00 97 % [facility] (LUF/DAVID/SA) BP Systolic 2020-02-25 00:52:00 133 mm[Hg] [facility] (LUF/DAVID/SA) BP Diastolic 2020-02-25 00:52:00 67 mm[Hg] [facility] (LUF/DAVID/SA) Height 2020-02-25 00:47:00 64 [in_i] [facility] (LUF/DAVID/SA) Weight 2020-02-25 00:47:00 103.4 kg [facility] (LUF/DAVID/SA) BMI (Body Mass 2020-02-25 00:47:00 39.3 kg/m2 [facility] Index) [facility] (LUF/DAVID/SA) Body Temperature 2020-01-25 11:32:00 98.4 [degF] [facility] (LUF/DAVID/SA) Pulse Rate 2020-01-25 11:32:00 81 /min [facility] (LUF/DAVID/SA) Respiratory Rate 2020-01-25 11:32:00 14 /min [facility] (LUF/DAVID/SA) O2% BldC Oximetry 2020-01-25 11:32:00 98 % [facility] (LUF/DAVID/SA) BP Systolic 2020-01-25 11:32:00 139 mm[Hg] [facility] (LUF/DAVID/SA) BP Diastolic 2020-01-25 11:32:00 89 mm[Hg] [facility] (LUF/DAVID/SA) Height 2020-01-25 11:32:00 64 [in_i] [facility] (LUF/DAVID/SA) Weight 2020-01-25 11:32:00 100.5 kg [facility] (LUF/DAVID/SA) BMI (Body Mass 2020-01-25 11:32:00 38.2 kg/m2 [facility] Index) [facility] (LUF/DAIVD/SA) Heart Rate 2019-11-24 04:16:00 84 /min [facility] (LUF/DAVID/SA) Pulse Rate 2019-11-24 04:16:00 90 /min [facility] (LUF/DAVID/SA) Respiratory Rate 2019-11-24 04:16:00 26 /min [facility] (LUF/DAVID/SA) O2% BldC Oximetry 2019-11-24 04:16:00 98 % [facility] (F/DAVID/SA) BP Systolic 2019-11-24 04:16:00 106 mm[Hg] [facility] (LUF/DAVID/SA) BP Diastolic 2019-11-24 04:16:00 69 mm[Hg] [facility] (LUF/DAVID/SA) Body Temperature 2019-11-24 00:54:00 98.4 [degF] [facility] (F/DAVID/SA) Height 2019-11-24 00:49:00 65 [in_i] [facility] (F/DAVID/SA) Weight 2019-11-24 00:49:00 103 kg [facility] (F/DAVID/SA) BMI (Body Mass 2019-11-24 00:49:00 37.8 kg/m2 [facility]) [facility] (LUF/DAVID/SA) Heart Rate 2019-10-07 22:54:00 83 /min [facility] (F/DAVID/SA) Respiratory Rate 2019-10-07 22:54:00 14 /min [facility] (F/DAVID/SA) Pulse Rate 2019-10-07 22:31:00 89 /min [facility] (F/DAVID/SA) O2% BldC Oximetry 2019-10-07 22:31:00 97 % [facility] (F/DAVID/SA) BP Systolic 2019-10-07 21:16:00 127 mm[Hg] [facility] (F/DAVID/SA) BP Diastolic 2019-10-07 21:16:00 85 mm[Hg] [facility] (F/DAVID/SA) Height 2019-10-07 20:41:00 64 [in_i] [facility] (LUF/DAVID/SA) Weight 2019-10-07 20:41:00 100.2 kg [facility] (LUF/DAVID/SA) BMI (Body Mass 2019-10-07 20:41:00 38.1 kg/m2 [facility] Index) [facility] (LUF/DAVID/SA) Pulse Rate 2019-09-20 04:16:00 96 /min [facility] (LUF/DAVID/SA) Respiratory Rate 2019-09-20 04:16:00 9 /min [facility] (LUF/DAVID/SA) O2% BldC Oximetry 2019-09-20 04:16:00 96 % [facility] (LUF/DAVID/SA) BP Systolic 2019-09-20 04:16:00 97 mm[Hg] [facility] (LUF/DAVID/SA) BP Diastolic 2019-09-20 04:16:00 76 mm[Hg] [facility] (LUF/DAVID/SA) Body Temperature 2019-09-20 00:44:00 98 [degF] [facility] (LUF/DAVID/SA) Height 2019-09-20 00:39:00 65 [in_i] [facility] (LUF/DAVID/SA) Weight 2019-09-20 00:39:00 101.9 kg [facility] (LUF/DAVID/SA) BMI (Body Mass 2019-09-20 00:39:00 37.4 kg/m2 [facility] Index) [facility] (LUF/DAVID/SA) Pulse Rate 2019-08-17 04:31:00 81 /min [facility] (LUF/DAVID/SA) Respiratory Rate 2019-08-17 04:31:00 13 /min [facility] (LUF/DAVID/SA) O2% BldC Oximetry 2019-08-17 04:31:00 97 % [facility] (LUF/DAVID/SA) BP Systolic 2019-08-17 04:31:00 136 mm[Hg] [facility] (LUF/DAVID/SA) BP Diastolic 2019-08-17 04:31:00 75 mm[Hg] [facility] (LUF/DAVID/SA) Body Temperature 2019-08-17 02:23:00 97.6 [degF] [facility] (LUF/DAVID/SA) Height 2019-08-17 02:19:00 64 [in_i] [facility] (LUF/DAVID/SA) Weight 2019-08-17 02:19:00 100.6 kg [facility] (LUF/DAVID/SA) BMI (Body Mass 2019-08-17 02:19:00 38.3 kg/m2 [facility] Index) [facility] (LUF/DAVID/SA) Pulse Rate 2018-12-07 02:33:00 79 /min [facility] (LUF/DAVID/SA) Respiratory Rate 2018-12-07 02:33:00 15 /min [facility] (LUF/DAVID/SA) O2% BldC Oximetry 2018-12-07 02:33:00 96 % [facility] (LUF/DAVID/SA) BP Systolic 2018-12-07 02:33:00 120 mm[Hg] [facility] (LUF/DAVID/SA) BP Diastolic 2018-12-07 02:33:00 76 mm[Hg] [facility] (LUF/DAVID/SA) Body Temperature 2018-12-07 01:10:00 98.2 F [facility] (LUF/DAVID/SA) Height 2018-12-07 01:10:00 64 in [facility] (LUF/DAVID/SA) Weight Measured 2018-12-07 01:10:00 218.25 lbs [facility] (LUF/DAVID/SA) BMI (Body Mass 2018-12-07 01:10:00 37.7 kg/m2 [facility]) [facility] (LUF/DAVID/SA) Pulse Rate 2018-09-30 19:40:00 70 /min [facility] (LUF/DAVID/SA) Respiratory Rate 2018-09-30 19:40:00 21 /min [facility] (LUF/DAVID/SA) O2% BldC Oximetry 2018-09-30 19:40:00 100 % [facility] (LUF/DAVID/SA) BP Systolic 2018-09-30 19:40:00 124 mm[Hg] [facility] (LUF/DAVID/SA) BP Diastolic 2018-09-30 19:40:00 88 mm[Hg] [facility] (LUF/DAVID/SA) Body Temperature 2018-09-30 19:23:00 99.3 F [facility] (LUF/DAVID/SA) Height 2018-09-30 19:23:00 66 in [facility] (F/DAVID/SA) Weight Measured 2018-09-30 19:23:00 212.52 lbs [facility] S [facility] (LUF/DAVID/SA) BMI (Body Mass 2018-09-30 19:23:00 34.5 kg/m2 [facility]) [facility] (LUF/DAVID/SA) Body Temperature 2018-09-01 13:59:00 98 F [facility] (LUF/DAVID/SA) Pulse Rate 2018-09-01 12:15:00 74 /min [facility] (LUF/DAVID/SA) Respiratory Rate 2018-09-01 12:15:00 16 /min [facility] (F/DAVID/SA) O2% BldC Oximetry 2018-09-01 12:15:00 98 % [facility] (LUF/DAVID/SA) BP Systolic 2018-09-01 12:15:00 131 mm[Hg] [facility] (LUF/DAVID/SA) BP Diastolic 2018-09-01 12:15:00 78 mm[Hg] [facility] (LUF/DAVID/SA) Height 2018-09-01 09:16:00 64 in [facility] (F/DAVID/SA) Weight Measured 2018-09-01 09:16:00 214.24 lbs [facility] S t [facility] (LUF/DAVID/SA) BMI (Body Mass 2018-09-01 09:16:00 37 kg/m2 [facility]) [facility] (LUF/DAVID/SA) Body Temperature 2018-05-13 10:58:00 99 F [facility] (LUF/DAVID/SA) Pulse Rate 2018-05-13 10:58:00 97 /min [facility] (LUF/DAVID/SA) Respiratory Rate 2018-05-13 10:58:00 18 /min [facility] (F/DAVID/SA) O2% BldC Oximetry 2018-05-13 10:58:00 98 % [facility] (LUF/DAVID/SA) BP Systolic 2018-05-13 10:58:00 131 mm[Hg] [facility] (LUF/DAVID/SA) BP Diastolic 2018-05-13 10:58:00 88 mm[Hg] [facility] (LUF/DAVID/SA) Height 2018-05-13 10:58:00 64 in [facility] (F/DAVID/SA) Weight Measured 2018-05-13 10:58:00 207.23 lbs [facility] S janel [facility] (LUF/DAVID/SA) BMI (Body Mass 2018-05-13 10:58:00 35.8 [facility] (LUF/DAVID/SA) Body Temperature 2017-12-24 08:04:00 98.7 F [facility] (F/DAVID/SA) Respiratory Rate 2017-12-24 08:04:00 18 /min [facility] (F/DAVID/SA) O2% BldC Oximetry 2017-12-24 08:04:00 98 % [facility] (F/DAVID/SA) BP Systolic 2017-12-24 08:04:00 126 mm[Hg] [facility] (F/DAVID/SA) BP Diastolic 2017-12-24 08:04:00 86 mm[Hg] [facility] (LUF/DAVID/SA) Weight Measured 2017-12-24 08:04:00 207.23 lbs [facility] S [facility] (F/DAVID/SA) Body Temperature 2017-06-20 23:28:00 97.4 F [facility] (F/DAVID/SA) Respiratory Rate 2017-06-20 23:28:00 20 /min [facility] (F/DAVID/SA) O2% BldC Oximetry 2017-06-20 23:28:00 99 % [facility] (F/DAVID/SA) BP Systolic 2017-06-20 23:28:00 107 mm[Hg] [facility] (LUF/DAVID/SA) BP Diastolic 2017-06-20 23:28:00 76 mm[Hg] [facility] (LUF/DAVID/SA) Height 2017-06-20 23:28:00 64 in [facility] (LUF/DAVID/SA) Weight Measured 2017-06-20 23:28:00 217.15 lbs [facility] S t [facility] (LUF/DAVID/SA) BMI (Body Mass 2017-06-20 23:28:00 37.5 [facility] (LUF/DAVID/SA) Procedures Procedure Date / Time Performing Clinician Source Performed POCT SARS-COV-2 ANTIGEN 2022-06-13 23:43:00 Magdalene Lucia [facility] (BINAX NOW) Medical Branch CT ABDOMEN PELVIS WO 2022-05-07 15:06:09 Ridge Pagan [facility] BASIC METABOLIC PANEL (NA, 2022-05-07 14:20:00 Ridge Pagan [facility] K, CL, CO2, GLUCOSE, BUN, Medica l Branch CREATININE, CA) CBC WITH DIFF 2022-05-07 14:20:00 Ridge Pagan [facility] URINALYSIS 2022-05-07 14:20:00 Ridge Pagan [facility] CONSENT/REFUSAL FOR 2022-05-07 13:49:51 Doctor Unassroxana, [facility] DIAGNOSIS AND TREATMENT [place] [facility] ABDOMEN PELVIS WO 2022-02-19 15:49:34 Trice Harris [facility] CONTRAST [facility] Branch LIPASE 2022-02-19 14:26[facility]IC PANEL 2022-02-19 14:26:00 Trice Harris [facility] ([id number]) Medical [place] CBC WITH DIFF 2022-02-19 14:26:00 Trice Harris [facility] URINALYSIS 2022-02-19 14:26:00 Trice Harris [facility] CONSENT/REFUSAL FOR 2022-02-19 14:11:01 Doctor Unassigned, Odine [facility] DIAGNOSIS AND TREATMENT [facility] POCT MOLECULAR FLU 2021-11-29 22:46:00 Ameena Preston [facility] INS INFUS DEV LT BASILIC 2020-03-15 00:00:[address] [facility] VN PERQ [facility] (LUF/DAVID/SA) ULTRASONOGRAPHY LT UP EXT 2020-03-15 00:00:[address] [facility] VNS GUID [facility] (LUF/DAVID/SA) ROBOTIC LAP LYSIS OF 2020-03-02 12:56:[address] [facility] ADHESIONS [facility] (LUF/DAVID/SA) LAPAROSCOPY ENTEROLYSIS 2020-03-02 00:00:[address] [facility] SEPARATE PROCEDU [facility] (LUF/DAVID/SA) COLONOSCOPY FLX DX W/COLLJ 2020-02-26 00:00:[address] [facility] SPEC WHEN PFR [facility] (LUF/DAVID/SA) ROBOTIC RIGHT OOPHORECTOMY 2019-03-21 17:09:[address] [facility] LUF (Right) [facility] (LUF/DAVID/SA) CYSTO RGP STENT PLACEMENT 2015-04-20 14:01:[address] [facility] LUF [facility] (LUF/DAVID/SA) CYSTO RGP STENT PLACEMENT 2015-04-20 14:01:[address] [facility] LUF [facility] (LUF/DAVID/SA) [facility]) Total thyroidectomy [facility] (LUF/DAVID/SA) section [facility] (LUF/DAVID/SA) ABDOMINAL ADHESIONS [facility] REMOVED [facility] (LUF/DAVID/SA) Extracorporeal shockwave [facility] lithotripsy [facility] (LUF/DAVID/SA) MULTIPLE CYSTECTOMYS DONE [facility]) MULTIPLE CYSTECTOMYS DONE [facility]) ABDOMINAL ADHESIONS [facility] REMOVED [facility] (LUF/DAVID/SA) Appendectomy [facility] Plan of Care Planned Activity Planned Date Details Comments Source Future Scheduled 2022-01-03 COVID-19 Vaccination [facility] Test 06:07:35 (#1) [code = COVID-19 MD [...] Center Future Scheduled 2021-12-22 COVID-19 Vaccination [facility] 05:57:49 (#1) [code = COVID-19 MD And erson Cancer Vaccination (#1)] Center Encounters Start End Encounter Admission Attending Care Care Encounter Source Date/Time Date/Time Type Type Clinicians Facility Department ID 2021-07-27 Outpatient Nba, STLMLC STLMLC Common 08:27:02 Josué 0127 [facility] 2021-07-26 Outpatient Nba, STLMLC STLMLC Common 14:20:31 Josué 1203 [facility] 2021-07-26 Outpatient Nba, STLMLC STLMLC Common 14:05:52 Josué 1027 [facility] 2021-07-26 Outpatient Nba, STLMLC STLMLC Common 12:01:28 Josué 1103 [facility] 2021-07-26 Outpatient Nba, STLMLC STLMLC Common 11:56:42 Josué 1019 [facility] 2021-07-26 Outpatient Nba, STLMLC STLMLC Common 11:49:38 Josué 0928 [facility] 2021-07-26 Outpatient Nba, STLMLC STLMLC Common 11:48:02 Josué 0922 [facility] 2021-07-26 Outpatient Nba, STLMLC STLMLC Common 11:47:47 Josué 0921 [facility] 2021-07-26 Outpatient Bna, STLMLC STLMLC Common 11:42:15 Josué 0901 [facility] 2021-07-26 Outpatient Nba, STLMLC STLMLC Common 11:32:09 Josué 0720 [facility] 2022-07-06 2022-07-06 Outpatient FOG_Dunn_Wa AO AO [id number] Adelia 00:00:00 00:00:00 Jhon [id number] [facility] 2022-06-17 2022-06-17 Outpatient FOG_Dunn_Wa AOSM AOSM [id number] Adelia 00:00:00 00:00:00 Jhon [id number] [facility] 2022-06-13 2022-06-13 Outpatient R KHARI [facility] [id number] Univers 17:20:00 17:41:53 MAGDALENE [facility] 2022-06-13 2022-06-13 Urgent Khari Magdalene [facility] [id number] Univers 17:20:00 17:41:53 Care Unknown, Attending HEALTH [id number] ity of [place] [id number] Jacques as SUE?BLEA [phone] [address] 2022-06-13 2022-06-13 [facility]phone [facility] [id number] Univers 00:00:00 00:00:00 [facility] [id number] it y of [place] [id number] Jacques as SUE?BLEA [phone] [address] 2022-05-13 2022-05-13 Outpatient FOG_Dunn_Wa AOSM AOSM [id number] Adelia 00:00:00 00:00:00 Jhon [id number] [facility] 2022-05-07 2022-05-07 Emergency X EJ [facility] ERT [id number] Univers 07:57:00 09:45:00 RIDGE melo [facility] 2022-05-07 2022-05-07 Emergency [facility] [id number] Univers 07:57:00 09:45:[address] [id number] i ty of [place] [id number] [place] [facility] [phone] [address] 2022-05-07 2022-05-07 Outpatient FOG_Dunn_Wa AOSM AOSM [id number] Adelia 00:00:00 00:00:00 Jhon [id number] [facility] 2022-04-23 2022-04-23 Emergency EM PACO Quintero [id number] [facility] 09:39:00 10:55:00 [place] [facility] [place] [facility] 2022-02-19 2022-02-19 Emergency X HARRIS, [facility] ERT [id number] Univers 09:15:00 11:05:00 TRICE ity [facility] 2022-02-19 2022-02-19 Emergency Harris, [facility] [id number] Univers 09:15:00 11:05:00 Trice [place] [id number] i ty of [place] [id number] [phone] [address] 2021-11-29 2021-11-29 [facility] [id number] Univers 17:40:00 18:00:00 Care [facility] [id number] it y of [place] [id number] Jacques as SUE?BLEA [id number] [place] dical [address] MEDICAL OFFICE BUILDING 2021-11-29 2021-11-29 Outpatient Irwin [facility] [id number] Univers 17:40:00 17:40:00 AMEENA [facility] 2021-11-29 2021-11-29 Outpatient Irwin [facility] [id number] Univers 17:40:00 17:40:00 [facility] 2021-10-26 2021-10-26 Office Shiva 1.2.840.1 [id number] Univers 09:45:00 10:47:06 Visit Praveen Kauffman.1.1 ity 3.412.2.7 [place] .[id number] .8 [facility] 2021-10-26 2021-10-26 Office GEOVANI Blas 1.2.840.1 [id number] Univers 09:45:00 10:47:06 Visit Praveen 66438.1.1 ity of 3.412.2.7 [place] .3.321876 MD Carter8 [facility] 2021-10-26 2021-10-26 Travel 1.2.840.1 [id number] [id number] Univers 00:00:00 00:00:00 [id number] [id number] ity of 3.412.2.7 2.[place].3.698 [place] .3.265635 084.8 .8 [facility] 2021-10-26 2021-10-26 Travel 1.2.840.1 [id number] [id number] Univers 00:00:00 00:00:00 04236.1.1 350.1.13.41 ity of 3.412.2.7 [place]3.698 [place] .3.005289 084.8 .8 [facility] 2021-10-15 2021-10-15 ROSEMARIE Conchis BERMUDEZ, [facility] EMD [id number] 22:25:00 22:45:00 CONSCIOUS EKTA Gamboa s SIMULATION Memor ia l (LUF/LI V/SA) 2021-10-15 2021-10-15 Inpatient [facility] [id number] [facility] 00:[facility] 00:00:00 SLINGER [id number] [facility], [id number] Memor ia [address] [id number] stefanie MEHTA (LUF/LI AVE, V/SA) [place] [address] 2021-10-15 2021-10-15 Inpatient [facility] [id number] [id number] 00:00:00 00:00:00 SLINGER [id number] [facility], [phone] Memor ia [address] [id number] stefanie MEHTA (LUF/LI AVE, V/SA) [place] [address] 2021-08-29 2021-08-29 Outpatient Irwin CARRANZA [facility] [id number] [facility] 16:20:00 16:20:00 PATRICK [facility] 2021-08-07 2021-08-07 Emergency EM Tyree, [facility] [id number] [facility] 09:36:00 12:55:00 Olga 19 [facility] 2021-08-01 2021-08-02 Emergency [facility] ERT [id number] Univers 22:00:00 01:17:00 LEANNE melo [facility] 2021-08-01 2021-08-02 Emergency [facility] [id number] Univers 22:00:00 01:17:00 Leanne S [place] [id number] i ty of [place] [id number] [place] [facility] [id number] [facility] 084 [place] 2021-06-28 2021-06-28 Outpatient R KHARI [facility] [id number] Univers 17:30:00 17:30:00 MAGDALENE [facility] 2021-06-22 2021-06-22 Letter REHAN Chaves [id number] Univers 00:00:00 00:00:00 (Out) Eve LEE [id number] it y of [facility] [id number] Jacques as [id number] [facility] 019 [place] 2021-06-22 2021-06-22 Refedgardo Carranza [facility] 1.2.840.114 [id number] Univers 00:00:00 00:00:00 [facility] [id number] it y of [place] 4.2.7.2.686 Jacques as SUE?BLEA [phone] [place] jada [address] MEDICAL OFFICE BUILDING 2021-06-21 2021-06-21 Outpatient R WINSOME [facility] [id number] Univers 11:00:00 12:14:12 PATRICK [facility] 2021-06-21 2021-06-21 Urgent Patrick Carranza [facility] 1.2.840.114 [id number] Univers 11:00:00 11:20:00 Ameena Rodriguez [facility] [id number] ity of [place] 4.2.7.2.686 Jacques as SUE?BLEA [phone] [address] MEDICAL OFFICE BUILDING 2021-06-21 2021-06-21 Telephone SAM Carranza 1.2.840.114 [id number] Univers 00:00:00 00:00:00 [facility] [id number] it y of [place] 4.2.7.2.686 Jacques as SUE?BLEA [id number] [address] MEDICAL OFFICE [facility] 2021-06-21 2021-06-21 Letter Doctor REHAN 1.2.840.114 [id number] 00:00:00 00:00:00 (Out) Unassigned, ROSA [id number] ity of [place] [facility] [id number] Jacques as [phone] [address] 2021-05-30 2021-05-30 (TEL) STLMLC STLMLC [id number] Co mmon 00:00:00 00:00:00 [facility] 2021-05-29 2021-05-29 (TEL) STLMLC STLMLC [id number] Co mmon 00:00:00 00:00:00 [facility] 2021-04-26 2021-04-26 (TEL) STLMLC STLMLC [id number] Co mmon 00:00:00 00:00:00 [facility] 2021-04-23 2021-04-23 UNSPECIFIE 1 LONI DYKES EMD [id number] [facility] 00:46:00 02:08:00 Chin Dhaliwal ABDOMINAL Memori a PAIN l (LUF/LI V/SA) 2021-04-23 2021-04-23 Inpatient [facility] OF [place] [address] ce73-5 [facility] 00:00:00 00:00:00 SLINGER [id number] Gutierrez jaqueline SWAN, [id number] [facility] [address] [id number] l [place] (LUF/[address], V/SA) [place] [address] 2021-04-23 2021-04-23 Inpatient [facility] [id number] 00:00:00 00:00:00 SLINGER [id number] [facility], [id number] Memor ia [address] [id number] l [place] (LUF/LI AVE, V/SA) [place] [address] 2021-03-24 2021-03-24 ANXIETY 1 YURY, [facility] [id number] [facility] [address] 10:25:00 12:27:00 DISORDER REHAN [facility] Memor ia D [address] [place] (LUF/LI AVE, V/SA) [place] [address] 2021-03-24 2021-03-24 Inpatient [facility] f871 [id number] [facility] 00:[facility]:00 00:00:00 SLINGER [id number] [facility], [id number] Memor ia [address] [id number] l [place] (LUF/LI AVE, V/SA) [place] [address] 2021-03-24 2021-03-24 Inpatient [facility] [id number] [id number] [facility] 00:00:00 00:00:00 SLINGER [id number] [facility], [id number] Memor ia [address] [id number] l [place] (LUF/LI AVE, V/SA) [place] [address] 2021-03-23 2021-03-23 Orders Nobert, [id number] [facility] 00:00:00 00:00:00 Only Viktoriya Charlton [id number] ity of [id number] [place] [id number] .[id number] [facility] [place] 2021-03-10 2021-03-10 UTI SUSANNA MENSAH, [facility] [id number] 10:29:00 13:50:00 [facility] [address] [place] (LUF/LI AVE, V/SA) [place] [address] 2021-03-10 2021-03-10 Inpatient [facility] [id number] [facility] 00:[facility]:00 00:00:00 SLINGER [id number] [facility], [id number] Memor ia [address] [id number] l [place] (LUF/LI AVE, V/SA) [place], [place] [address] 2021-03-10 2021-03-10 Inpatient [facility] 518c [id number] [facility] 00:00:00 00:00:00 SLINGER [id number] [facility], [id number] Memor ia [address] [id number] l [place] (LUF/LI AVE, V/SA) [place] [address] 2021-02-23 2021-02-23 RIGHT E [facility] [facility] [id number] 08:15:00 12:44:00 [facility], Memoria PAIN [address] (LUF/LI A[address], V/SA) [place] [address] 2021-02-23 2021-02-23 Inpatient [facility] 89b5 d1de-[address] 00:00:00 00:00:00 SLINGER [id number]-[id number] [facility], [id number] Memor ia [address] [id number] l [place] (LUF/LI AVE, V/[place]) [place] [address] 2021-02-23 2021-02-23 Inpatient [facility] 8500 e20f-[address] 00:00:00 00:00:00 SLINGER [id number]-[id number] [facility], [id number] Memor ia [address] 1655de l [place] (LUF/LI AVE, V/SA) [place] [address] 2021-01-10 2021-01-10 RADU DYKES, [facility] [id number] 00:21:00 03:06:00 [facility] [address] ([address]F/LI A[address], V/SA) [place] [address] 2021-01-10 2021-01-10 Inpatient [facility] ff0d 2205-c [facility] 00:00:00 00:00:00 SLINGER [id number] [facility], [id number] Memor ia [address] [id number] l [place] (LUF/LI A[address], V/SA) [place] [address] 2021-01-10 2021-01-10 Inpatient [facility] fe83-e [facility] 00:00:00 00:00:00 SLINGER [id number] [facility], [id number] Memor ia [address] [id number] l [place] (LUF/LI AVE, V/SA) [place] [address] 2020-12-27 2020-12-27 Emergency [facility] Zarina [id number] [address] [place] [address] 00:00:00 00:00:[address] 2020-12-22 2020-12-22 Outpatient 3 LONI MURILLO TIC [id number] [facility] [address] 09:00:00 09:00:00 SKYE Dhaliwal Memoria l (LUF/LI V/SA) 2020-12-13 2020-12-13 Emergency EM Kimberly, [facility] [id number] [facility] 01:53:00 06:36:[address] [place] [address] 2020-12-12 2020-12-12 RIGHT Jake COTTON, [facility] [id number] [facility] [address] 12:33:00 14:00:00 [facility], Memoria PAIN [address] (LUF/LI A[address], V/SA) [place] [address] 2020-12-12 2020-12-12 Inpatient [facility] e2c0 cb47-b [facility] 00:[facility]:00 00:00:00 SLINGER [id number]-[id number] [facility], [id number] Memor ia [address] [id number] l [place] (LUF/LI AVE, V/SA) [place] [address] 2020-12-12 2020-12-12 Inpatient [facility] 43ed f7fe-[address] 00:00:00 00:00:00 SLINGER [id number] [facility], [id number] Memor ia [address] 70ade3 l [address] (LUF/LI AVE, V/SA) [place] [address] 2020-12-08 2020-12-08 UNSPECIFIE Jake SOTOMAYOR, [facility] [id number] 09:44:00 12:26:00 D WYATT [facility] [place] [address] (LUF/LI AVE, V/SA) [place] [address] 2020-12-08 2020-12-08 Inpatient [facility] 6a3f a794-a [facility] 00:00:00 00:00:00 SLINGER [id number] [facility], [id number] Memor ia [address] [id number] l [place] (LUF/LI AVE, V/SA) [place] [address] 2020-11-25 2020-11-25 UNSPECIFIE [facility] [id number] [facility] [address] 00:13:00 00:30:00 D [facility] a PAIN [address] (LUF/LI AVE, V/SA) [place] [address] 2020-11-25 2020-11-25 Inpatient [facility] 3041 db6a-[address] [facility] [address] 00:00:00 00:00:00 SLINGER [id number]-b [facility], [id number] Memor ia [address] 841f4f l [address] (LUF/LI AVE, V/SA) [place] [address] 2020-11-25 2020-11-25 Inpatient [facility] a3eb ed11-a [facility] 00:00:00 00:00:00 SLINGER [id number] [facility], [id number] Memor ia [address] ea5dda l [place] (LUF/LI AVE, V/SA) [place] [address] 2020-11-21 2020-11-21 ENDOMETRIO 1 [facility] [id number] [facility] [address] 07:14:00 09:53:00 SIS SLINGER [facility] [place], Memor ia D [address] (LUF/LI A[address], V/SA) [place], [place] [address] 2020-11-21 2020-11-21 Inpatient [facility] 90f0 278b-[address] 00:00:00 00:00:00 SLINGER [id number]-3 [facility], 4bb-5eeded Memor ia [address] [id number] l [place] (LUF/LI AVE, V/SA) [place] [address] 2020-11-21 2020-11-21 Inpatient [facility] 3b21 9c7a-[address] [facility] [address] 00:00:00 00:00:00 SLINGER 30a-405e-8 [facility], [id number] Memor ia [address] [id number] l [place] (LUF/LI AVE, V/[place]) [place] [address] 2020-11-14 2020-11-[address] [facility] EMD [id number] [facility] [address] 09:27:00 14:37:00 UNS REHAN Dhaliwal WITHOUT Memoria BLEEDING l (LUF/LI V/SA) 2020-11-14 2020-11-14 Inpatient [facility] d4fe d3e2-[address] 00:00:00 00:00:00 SLINGER 3cf-[id number]-a [facility], [id number] Memor ia [address] 2d56cc l [address] (LUF/LI AVE, V/SA) [place] [address] 2020-11-14 2020-11-14 Inpatient [facility] 324e 65b9-b [facility] 00:00:00 00:00:00 SLINGER 464-403c-8 [facility], [id number] Memor ia [address] [id number] l [address] (LUF/LI AVE, V/SA) [place] [address] 2020-11-08 2020-11-08 OTHER E YURY, [facility] [id number] [facility] [address] 08:04:00 13:13:00 CHRONIC REHAN [facility] [address] (LUF/LI AVE, V/SA) [place] [address] 2020-11-08 2020-11-08 Inpatient [facility] 8079 b52c-c [facility] 00:00:00 00:00:00 SLINGER ed8-4ae3-8 [facility], [id number] Memor ia [address] cf6d84 l [place] (LUF/LI AVE, V/SA) [place], [place] [address] 2020-11-08 2020-11-08 Inpatient [facility] 0f07 dc59-[address] 00:00:00 00:00:00 SLINGER 292-4184-b [facility], [id number] Memor ia [address] d1bfd4 l [place] (LUF/LI AVE, V/SA) [place], [place] [address] 2020-11-08 2020-11-08 Inpatient [facility] 40b4 e14c-[address] [facility] [address] 00:00:00 00:00:00 SLINGER [id number] [facility], [id number] Memor ia [address] 29ea9a l [place] (LUF/LI AVE, V/SA) [place], [facility] 2020-11-01 2020-11-01 NAUSEA Jake MUÑOZ, [facility] [id number] [facility] [address] 00:27:00 03:55:00 WITH CLEMENT [facility], Memoria UNSPECIFIE [address] D [place] (LUF/LI AVE, V/SA) [place], [place] [address] 2020-11-01 2020-11-01 Inpatient [facility] 1ec3 64c1-c [facility] 00:[facility]:00 00:00:00 SLINGER [id number]-n [facility], [id number] Memor ia [address] [id number] l [place] (LUF/LI AVE, V/SA) [place] [address] 2020-11-01 2020-11-01 Inpatient [facility] 79c0 b023-[address] 00:00:00 00:00:00 SLINGER 2q4-941x-b [facility], [id number] Memor ia [address] 783eec l [place] (LUF/LI AVE, V/SA) [place] [address] 2020-10-04 2020-10-05 OTHER E RODRICK, [facility] [address] 23:32:00 01:00:00 CHRONIC JUAN [facility]ER [facility] [place] [address] ([address]F/LI AVE, V/SA) [place] [address] 2020-10-04 2020-10-04 Inpatient [facility] b016 f3f5-a [facility] 00:00:00 00:00:00 SLINGER [id number] [facility], [id number] Memor ia [address] bb93d3 l [place] (LUF/LI AVE, V/SA) [place] [address] 2020-10-04 2020-10-04 Inpatient [facility] ea96 0c7a-[address] 00:00:00 00:00:00 SLINGER 25c-4997-b [facility], [id number] Memor ia [address] 1f27e6 l [place] (LUF/LI AVE, V/SA) [facility] [place] [address] 2020-09-18 2020-09-18 OTHER E [facility] [id number] 01:00:00 04:44:00 CHRONIC SLINGER [facility] [place], [facility] [address] (LUF/LI AVE, V/SA) [place] [address] 2020-09-18 2020-09-18 Inpatient [facility] b80a 7ee5-[address] 00:00:00 00:00:00 SLINGER 6z2-759x-4 [facility], [id number] Memor ia [address] [id number] l [address] (LUF/LI AVE, V/SA) [place] [address] 2020-09-18 2020-09-18 Inpatient [facility] 1a33 0198-a [facility] 00:00:00 00:00:00 SLINGER [id number] [facility], [id number] Memor ia [address] [id number] l [address] ([address]F/LI A[address], V/SA) [place] [address] 2020-09-12 2020-09-12 ENDOMETRIO E RODRICK, [facility] [id number] [facility] 00:46:00 02:38:00 SIS [facility] UNSPECIFIE [place], Memor ia D [address] ([address]F/LI A[address], V/[place]) [place] [address] 2020-09-12 2020-09-12 Inpatient [facility] 726d 153b-a [facility] 00:00:00 00:00:00 SLINGER [id number]-[id number] [facility], [id number] Memor ia [address] 2913af l [address] ([address]F/LI A[address], V/[place]) [place] [address] 2020-09-12 2020-09-12 Inpatient [facility] 9a2d b59c-c [facility] 00:00:00 00:00:00 SLINGER [id number] [facility], [id number] Memor ia [address] 655cce l [address] (LUF/LI A[address], V/SA) [place] [address] 2020-08-22 2020-08-22 OTHER E RODRICK, [facility] [id number] 01:13:00 03:24:00 CHRONIC [facility]IN [place], Memoria [address] (LUF/LI AVE, V/SA) [place] [address] 2020-08-22 2020-08-22 Inpatient [facility] 7a1d d2a9-[address] 00:00:00 00:00:00 SLINGER [id number] [facility], [id number] Memor ia [address] [id number] l [place] ([address]F/LI A[address], V/[place]) [place] [address] 2020-08-22 2020-08-22 Inpatient [facility] 53d3 2542-f [facility] 00:00:00 00:00:00 SLINGER 72a-4479-9 [facility], [id number] Memor ia [address] 284d1a l [place] (LUF/LI A[address], V/SA) [place] [address] 2020-08-06 2020-08-06 Inpatient Jake MENSAH, [facility] [id number] 01:21:00 03:35:00 [facility] [address] (LUF/LI AVE, V/SA) [place] [address] 2020-08-06 2020-08-06 Inpatient [facility] 07b7 067c-a [facility] 00:00:00 00:00:00 SLINGER [id number] [facility], [id number] Memor ia [address] 4f7e15 l [place] (LUF/LI AVE, V/SA) [place] [address] 2020-07-19 2020-07-19 RIGHT Jake COTTON, [facility] [id number] [facility] [address] 07:50:00 11:20:00 [facility] PAIN [address] (LUF/LI A[address], V/SA) [place] [address] 2020-07-19 2020-07-19 Inpatient [facility] 625d 6050-c [facility] 00:00:00 00:00:00 SLINGER 92c-[id number] [facility], [id number] Memor ia [address] [id number] l [place] (LUF/LI AVE, V/SA) [place] [address] 2020-07-19 2020-07-19 Inpatient [facility] 0f28 [id number] 00:00:00 00:00:00 SLINGER bbb-4c99-b [facility], [id number] Memor ia [address] ca6e76 l [place] (LUF/LI A[address], V/[place]) [place] [address] 2020-07-05 2020-07-05 OTHER Jake MENSAH, [facility] [id number] [facility] [address] 02:42:00 05:00:00 CHRONIC JUAN [facility] Memoria [address] ([address]F/LI A[address], V/SA) [place] [address] 2020-07-05 2020-07-05 Inpatient [facility] 525e 4189-f [facility] 00:00:00 00:00:00 SLINGER bff-495f-b [facility], [id number] Memor ia [address] 7ec68b l [place] ([address]F/LI A[address], V/SA) [place] [address] 2020-07-05 2020-07-05 Inpatient [facility] c54b 2c2e-e [facility] 00:00:00 00:00:00 SLINGER [id number] [facility], [id number] Memor ia [address] [id number] l [place] ([address]F/LI A[address], V/SA) [place] [address] 2020-06-10 2020-06-10 (TEL) [facility] [id number] Co mmon 00:00:00 00:00:00 [facility] 2020-06-07 2020-06-07 Inpatient 1 YURY, [facility] [place] [address] [id number] [facility] [address] 12:56:00 19:04:00 [facility] [address] ([address]/LI [address], V/SA) [place] [address] 2020-06-07 2020-06-07 Inpatient [facility] 5603 9727-e [facility] 00:00:00 00:00:00 SLINGER [id number]-[id number] [facility], [id number] Memor ia [address] 1139d5 l [place] ([address]F/LI A[address], V/SA) [place] [address] 2020-05-31 2020-05-31 Inpatient E YURY, [facility] [place] [id number] 09:31:00 14:13:00 [facility] [address] ([address]F/LI A[address], V/SA) [place] [address] 2020-05-10 2020-05-10 Outpatient STLMLC STLMLC [id number] Common 00:00:00 00:00:00 [facility] 2020-05-09 2020-05-09 Outpatient STLMLC STLMLC [id number] Common 00:00:00 00:00:00 [facility] 2020-05-05 2020-05-05 Outpatient STLMLC STLMLC [id number] Common 00:00:00 00:00:00 [facility] 2020-05-02 2020-05-02 Outpatient STLMLC STLMLC [id number] Common 00:00:00 00:00:00 [facility] 2020-05-02 2020-05-02 Outpatient STLMLC STLMLC [id number] Common 00:00:00 00:00:00 [facility] 2020-04-29 2020-04-29 Outpatient STLMLC STLMLC [id number] Common 00:00:00 00:00:00 [facility] 2020-04-25 2020-04-25 LEFT LOWER E [facility] [place] [id number] 16:46:00 21:30:00 [facility] [address] ([address]F/LI A[address], V/SA) [place] [address] 2020-04-22 2020-04-22 Outpatient STLMLC STLMLC [id number] Common 00:00:00 00:00:00 [facility] 2020-04-20 2020-04-20 PROC&TX MMC OF [facility] [id number] 15:39:00 16:03:[address] [facility] OUT PT [address] [place] (LUF/LI AVE, V/SA) [place] [address] 2020-04-20 2020-04-20 Outpatient STLMLC STLMLC [id number] Common 00:00:00 00:00:00 [facility] 2020-04-20 2020-04-20 Outpatient STLMLC STLMLC [id number] Common 00:00:00 00:00:00 [facility] 2020-04-15 2020-04-15 Outpatient STLMLC STLMLC [id number] Common 00:00:00 00:00:00 [facility] 2020-04-13 2020-04-13 Outpatient STLMLC STLMLC [id number] Common 00:00:00 00:00:00 [facility] 2020-04-12 2020-04-12 Outpatient STLMLC STLMLC [id number] Common 00:00:00 00:00:00 [facility] 2020-04-11 2020-04-11 Outpatient STLMLC STLMLC [id number] Common 00:00:00 00:00:00 [facility] 2020-04-08 2020-04-08 Outpatient STLMLC STLMLC [id number] Common 00:00:00 00:00:00 [facility] 2020-04-06 2020-04-06 Outpatient STLMLC STLMLC [id number] Common 00:00:00 00:00:00 [facility] 2020-04-04 2020-04-04 Outpatient STLMLC STLMLC [id number] Common 00:00:00 00:00:00 [facility] 2020-03-31 2020-03-31 Outpatient STLMLC STLMLC [id number] Common 00:00:00 00:00:00 [facility] 2020-03-29 2020-03-29 Outpatient GEOVANI BLAS [facility] [id number] MD 00:00:00 00:00:00 PRAVEEN pyaton 2020-03-29 2020-03-29 Outpatient STLMLC STLMLC [id number] Common 00:00:00 00:00:00 [facility] 2020-03-28 2020-03-28 Outpatient STLMLC STLMLC [id number] Common 00:00:00 00:00:00 [facility] 2020-03-22 2020-03-22 Outpatient STLMLC STLMLC [id number] Common 00:00:00 00:00:00 [facility] 2020-03-21 2020-03-21 Outpatient STLMLC STLMLC [id number] Common 00:00:00 00:00:00 [facility] 2020-03-20 2020-03-20 FEDE COTTON, [facility] [place] [id number] 17:08:00 22:56:00 ABDOMINAL REHAN [facility] UNSPECIFIE [address] (LUF/LI A[address], V/SA) [place] [address] 2020-03-14 2020-03-17 CELLULITIS E TRUX, [facility] [place] [id number] 14:54:00 11:30:00 OF RASTAFARIAN [facility] s ABDOMINAL [place], [facility] a WALL [address] ([address]F/[address] [place], V/SA) [place] [address] 2020-03-03 2020-03-03 Outpatient [facility] [id number] Common 13:33:00 13:33:00 [facility] 2020-03-02 2020-03-02 FE RYAN WOLFE, [facility] [place] [id number] 05:58:00 15:35:00 PERITON LIZBETH [facility] POSTINFECT [address] KIERAN [address] (LUF/LI AVE, V/[place]) [place] [address] 2020-03-02 2020-03-02 [facility] [id number] Common 00:00:00 00:00:00 [facility] 2020-03-01 2020-03-01 Outpatient [facility] [id number] Common 09:15:00 09:15:00 [facility] 2020-02-29 2020-02-29 Outpatient [facility] [id number] Common 09:30:00 09:30:00 [facility] 2020-02-25 2020-02-27 FEDE COTTON, [facility] [place] [id number] 13:21:00 12:09:00 ABDOMINAL REHAN [facility] UNSPECIFIE [address] (LUF/LI [place], V/SA) [place] [address] 2020-02-25 2020-02-25 UNSPECIFIE E RODRICK, [facility] [id number] 00:40:00 05:00:00 D JUAN [facility] [place] [address] (LUF/LI AVE, V/SA) [place] [address] 2020-01-25 2020-01-25 LOW BACK 1 COTTON, [facility] [id number] 11:28:00 13:15:00 PAIN REHAN [facility] [address] ([address]F/LI [address], V/SA) [place] [address] 2020-01-18 2020-01-18 Outpatient [facility] [id number] Common 11:45:00 11:45:00 Clinics [facility] Women's Women's - [facility] 2019-12-09 2019-12-09 OTHER E [facility] OF [facility] [place] [id number] [facility] [address] 03:03:00 05:08:00 CHRONIC [facility] [place] [address], V/SA) [place] [address] 2019-11-24 2019-11-24 UNSPECIFIE E [facility] [id number] [facility] 00:31:00 05:30:00 D [facility] ABDOMINAL [place] PAIN [address] V/SA) [place] [address] 2019-10-07 2019-10-07 RIGHT 1 COTTON, [facility] [place] [id number] [id number] [facility] 20:35:00 23:10:00 LOWER [facility] QUADRANT [place], [facility] PAIN [address], V/SA) [place] [address] 2019-09-20 2019-09-20 RIGHT 1 COTTON, [facility] [id number] 00:33:00 04:23:00 LOWER [facility], [facility] PAIN [address], V/SA) [place] [address] 2019-08-17 2019-08-17 UNSPECIFIE 1 TRUX, [facility] [id number] [facility] [address] 02:18:00 04:45:00 D RASTAFARIAN [place] [facility]AL [place] PAIN [address], V/SA) [place] [address] 2019-04-22 2019-04-22 [facility] [id number] Common 12:03:00 12:03:00 Clinics [facility] 2019-04-14 2019-04-14 [facility] [id number] Common 16:12:00 16:12:00 Clinics [facility] 2019-04-06 2019-04-06 [facility] [id number] Common 12:16:00 12:16:00 [facility] 2019-03-31 2019-03-31 [facility] [id number] Common 14:00:00 14:00:00 [facility] 2018-12-07 2018-12-07 UNSPECIFIE 1 QUINTIN BRITO [facility] [id number] [facility] 01:06:00 04:45:00 D OVARIAN [place] [facility] s CYST RIGHT [facility] ia SIDE [address], V/SA) [place] [address] 2018-10-29 2018-10-29 N-PRSS CHR JAY, [facility] [id number] [facility] 06:59:00 23:59:00 ULCR SKIN MIKY [place]ING[place] [facility] s OTH [facility] [address], V/SA) [place] [address] 2018-10-22 2018-10-22 N-PRSS CHR JAY, [facility] [id number] [facility] 07:20:00 23:59:00 ULCR SKIN MIKY SLING[place] [facility] [address] ([address], V/SA) [place] [address] 2018-10-15 2018-10-15 N-PRSS CHR O [place], [facility] [id number] [facility] 07:08:00 23:59:00 ULCR SKIN MIKY [facility] OTH [place]CR [place] [address] ([address], V/SA) [place] [address] 2018-09-30 2018-10-01 INFCT FOL 1 SHABNAM, [facility] [id number] [facility] 18:46:00 01:05:00 PRC SUPF DIMAS [facility] SIT INIT [address], V/SA) [place] [address] 2018-09-01 2018-09-01 OTH 1 WANDA, [facility] [place] [id number] [facility] [address] 09:12:00 14:00:00 NONINFL CLEMENT [facility] D/O OVARY [place], [facility] TUBE&BRD [address], V/SA) [place] [address] 2018-05-13 2018-05-13 Inpatient 1 WANDA, [facility] [id number] [facility] [address] 10:52:00 13:46:00 CLEMENT [facility], [facility]oria [address], V/SA) [place] [address] 2017-12-24 2017-12-24 UNSPECIFIE 1 QUINTIN BRITO [facility] [id number] [facility] 07:51:00 13:52:00 D OVARIAN [facility] s CYST RIGHT [place] SIDE [address], V/SA) [place] [address] 2017-06-20 2017-06-21 HYDRONPHRO 1 RODRICK, [facility] [id number] [facility] 23:01:00 03:55:00 S JUAN [facility] RENL&URETR [place] ia L CALCUL [address], V/SA) [place] [address] 2017-05-13 2017-05-13 OTHER 3 MERLE, [facility] [id number] 15:40:00 23:59:00 FATIGUE ASA [facility] [address] [facility] [address] PI[address], V/SA) [place] [address] Results Test Description Test Time Test Comments Results Result Comments Source POCT SARS-COV-2 ANTIGEN (BINAX NOW) 2022-06-13 23:43:00 Test Item Value Reference Range Interpretation Comme nts POCT SARS-COV-2 ANTIGEN (test code = 35059-6) Positive Not Dete cted A On board controls acceptable with C Line (test code = 3574) Yes Lab Interpretation (test code = 27901-0) Abnormal [facility]- XR SHOULDER 2 + V [id number] 16:42:00 [facility] 1985 Sex: F Patient Name: LAUREN BETH Unit No: [id number] EXAMS: CPT CODE: [id number] XR SHOULDER 2 + [place] [address] Left shoulder 3 views COMMENT: There is no evidence for fracture or subluxation. No focal bony lesions are seen. at 1642 Reported and signed by: Angelo Hardin MD CC: Truman Quintero MD Technologist: Jeannette Garcia RT.(R) Transcribed D/ (1642) tLAURENR.JCL [facility] NAME: LAUREN BETH [address] [facility] PHYS: Truman Alfaro MD : 1985 AGE: 36 SEX: F [place], [place] [address] LOC: JOHNNIE PHONE #: [phone] EXAM DATE: 04/23/2022 STATUS: DEP ER FAX #: [phone] RAD #: D/C DT PAGE 1 Signed Report Patient Name: LAUREN BETH Unit No: [id number] EXAMS: CPT CODE: [id number] XR SHOULDER 2 + V LT [address] (Continued) Orig Print D/T: S: 04/23/2022 (1645) [facility] NAME: LAUREN BETH [address] [facility] PHYS: Truman Alfaro MD : 1985 AGE: 36 SEX: F [place], [place] [address] LOC: JOHNNIE PHONE #: [phone] EXAM DATE: 04/23/2022TATUS: DEP ER FAX #: [phone] RAD #: D/C DT PAGE 2 Signed ReportCOMP. METABOLIC PANEL (53529)2022-02-19 14:56:05 Test Item Value Reference Range Interpretation Comments NA (test code = 137 mmol/L 135-145 3088728489) K (test code = 4.2 mmol/L 3.5-5 2117101719) CL (test code = 108 mmol/L 98-108 6529361285) CO2 TOTAL (test code = 19 mmol/L 23-31 L 1812030401) AGAP (test code = 2-16 5801100601) BUN (test code = 14 mg/dL 7-23 1037928586) GLUCOSE (test code = 133 mg/dL 70-110 H 0019840508) CREATININE (test code = 0.56 mg/dL 0.5-1.04 4792420518) TOTAL BILI (test code = 0.4 mg/dL 0.1-1.6 6278685036) CALCIUM (test code = 8.9 mg/dL 8.6-10.6 7164396046) T PROTEIN (test code = 6.5 g/dL 6.3-8.2 8949086765) ALBUMIN (test code = 4.0 g/dL 3.5-5 6915073618) ALK PHOS (test code = 84 U/L 34-122 8766450409) ALTv (test code = 23 U/L 5-35 2-6) AST(SGOT) (test code = 24 U/L 13-40 3972759977) eGFR (test code = mL/min/1.73m2 4757190234) RENZO (test code = RENZO) Association of [...] tests). Lab Interpretation Abnormal (test code = 79888-8) [facility] 14:55:44 Test Item Value Reference Range Interpretation Comments LIPASE (test code = 9981546671) 81 U/L 0-220 Lab Interpretation (test code = Normal 64418-6) [facility] CenterCB WITH [id number] 14:36:26 Test Item Value Reference Range Interpretation [...] RDW-SD (test code = 43.9 fL 39-49.9 96833-3) RDW-CV (test code = 13.7 % 12-15.5 788-0) PLT (test code = See_Comment [Automated 777-3) message] The sy stem which generated this result transmitted reference range : 166 - 358 10*3/ ?L. The reference r bruce was not used to interpret this result as normal/abnormal . MPV (test code = 8.5 fL 9.5-12.9 L 45987-4) NRBC/100 WBC (test See_Comment [Automat ed code = 2009227929) message] The system which generated this result transmitted reference range : 0.0 - 10.0 /100 WBCs. The refer ence range was not u sed to interpret th is result as normal/abnormal . NRBC x10^3 (test code See_Comment [Auto mated = 2587561292) message] The s ystem which generated this result transmitted reference range : 10*3/?L. The reference range was not used to interpret this result as normal/abnormal . GRAN MAT (NEUT) % 58.7 % (test code = 770-8) IMM GRAN % (test code 1.10 % = 6637898649) LYMPH % (test code = 31.6 % 736-9) MONO % (test code = 6.8 % 5905-5) EOS % (test code = 1.4 % 713-8) BASO % (test code = 0.4 % 706-2) GRAN MAT x10^3(ANC) 3.30 10*3/uL 1.88-7.09 (test code = 7136731611) IMM GRAN x10^3 (test 0.06 10*3/uL 0-0.06 code = 3628342849) LYMPH x10^3 (test code 1.77 10*3/uL 1.32-3.29 = 731-0) MONO x10^3 (test code 0.38 10*3/uL 0.33-0.92 = 742-7) EOS x10^3 (test code = 0.08 10*3/uL 0.03-0.39 711-2) BASO x10^3 (test code 0.01-0.07 = 704-7) Lab Interpretation Abnormal (test code = 09430-3) [facility] CenterPO[facility] MOLECULAR [id number] 22:58:14 Test Item Value Reference Range Interpretation Comments POCT Molecular FluA (test code = Negative Negative 65613-5) POCT Molecular FluB (test code = Negative Negative 13940-7) Lab Interpretation (test code = Normal 24150-1) [facility] CenterHEP[facility] FUNCTION PANEL (LIVER)2021-10-16 13:57:00 Test [...] (test code = 0.2 mg/dl 0.0-1.1 IBIL) [id number] 13:57:00 Test Item Value Reference Range Interpretation Comments Lipase (test code = LIPA) 114 U/L 73-393 STLAMYLASE, [id number] 13:57:00 Test Item Value Reference Range Interpretation Comments Amylase (test code = AMYL) 51 U/L 25-115 [facility] LAB CHEM [id number] 22:45:00 Test Item Value Reference Range Interpretation [...] code = CO2) 22.1 mmol/l 24.0-29.0 L [facility] CBC WITH AUTO [id number] 22:43:00 Test Item Value Reference Range Interpretation [...] = IG%) 0.2 % 0.0-0.4 STLMLHEPATIC FUNCTION [id number] 13:03:00 Test Item Value Reference Range Interpretation [...] 96 Unit/L 45-117 N code = ALKP) [id number] 13:03:00 Test Item Value Reference Range Interpretation Comments LIPASE (test code = LIP) 83 Unit/L 114-286 L BASIC METABOLIC [id number] 13:03:00 Test Item Value Reference Range Interpretation [...] 8.5-10.1 N UA RFLX MICR CULT IF [id number] 12:44:00 Test Item Value Reference Range Interpretation [...] OF URINE: CLEAN CATCH- CT ABD PELVIS W/[id number] 12:27:00 [facility] 1985 Sex: F Name: LAUREN BETH [facility] : 1985 Age/S: 36 / F [address] [address] Unit #: [id number]: Julián Holcomb [address] Phys: YobaniMarco AIR DRIER Acct: [id number] Dis Date: Status: REG ER PHONE #:[phone] Exam Date: 08/07/20213 FAX #: Reason: LLQ ABD PAIN EXAMS: CPT: [id number] CT ABD PELVIS W/CONT 98533 EXAM: CT ABDOMEN AND PELVIS WITH CONTRAST. [...] 1 Signed Report (CONTINUED) Name: LAUREN BETH [facility] [place] : 1985 Age/S: 36 / F [address] [address] Unit #: [id number] Loc: Julián Holcomb [address] Phys: Marco Hilton AIR DRIER Acct: [id number] Dis Date: Status: REG ER PHONE #: [phone] Exam Date: 08/07/2021 1223 FAX #: Reason: LLQ ABD PAIN EXAMS: CPT: [id number] CT ABD PELVIS W/CONT 46533 <Continued> at 1227 Reported and signed by: Alma Cartwright M.D. CC: Olga Clements DO; Marco Hilton NP Technologist:Elmer Laguna RT(R) CTDI: DLP: Trnscb Date/Time: 08/07/2021 (1227) VereniceMD16 Orig Print D/T: S: 08/07/2021 (2349) PAGE 2 Signed ReportCBC W/AUTO [id number] 12:23:00 Test Item Value Reference Range Interpretation [...] DIFF/SCN CRITERIA = MDIFF) CORONAVIRUS 2019 (IN [place])(3HR)2021-03-24 17:04:00 Test Item Value Reference Range Interpretation [...] contact the [facility] at [phone]. [id number] 12:37:00 Test Item Value Reference Range Interpretation [...] of c hronic kidney failure. STLMLSTAT LAB [id number] 12:11:00 Test Item Value Reference Range Interpretation [...] after the clini felipa event. STLMLPT AND [id number] 12:09:00 Test Item Value Reference Range Interpretation Comments Protime (test code 9.5 seconds 9.5-12.1 = PT) INR (test code = 0.9 0.9-1.1 INR results are intended INR) ONLY to monitor Oral Anticoagulant t herapy in stablized patie nts. The INR Therapeutic Range is 2.0 - 3.0 Patie nts with a mechanical he art, the INR Range is 2. 5 - 3.5 [id number] 12:09:00 Test Item Value Reference Range Interpretation Comments aPTT (test code = PTT) 22.3 seconds 23.9-30.7 L STLMLSTAT LAB CBC WITH AUTO [id number] 11:57:00 Test Item Value Reference Range Interpretation [...] 0.3 % 0.0-0.4 STLMLXR CHEST AP/PA 1 [id number] 11:33:32 [facility])Name: LAUREN BETH : 1985 Sex: FProcedure: XR CHEST AP/PA 1 VIEWOrder Date: 03/24/2021 10:57 AMOrdering Provider: REHAN COTTONClinical Indication: [id number]: DyspneaComparison: September 30, 2018Findings:Cardiac size is normal.Pulmonary vasculature is normal.Mediastinal contour is normal.Aortic contour is normal.No acute infiltrates or effusions.There is no mass or pneumothorax.There is no evidence of active tuberculosis.There isno acute skeletal abnormality.Impression: Negative AP view of the chest.This final report was electronically signed by Dr Farzad Dewitt MD :28 AMDictated By: FARZAD DEWITTDate: :28STLMLCULTURE, [id number] 08:00:00Specimen: Urine SpecimensCollected: 03/10/2021 11:50 Status: Final [...] code = NEGATIVE NEGATIVE N UKET) Specific Hilbert 1.015 1.005-1.030 A (test code = USPGR) Blood (test code = NEGATIVE NEGATIVE N UBLD) PH (test code = UPH) 7.0 4.5-8.0 A Protein (test code = NEGATIVE NEGATIVE N UPROT) Urobilinogen (test 0.2 See_Comment N [Automat ed message] code = U UROB) The system [employer] generated this result transmit michael reference range [...] SEEN A Epithelial (test code = NSE) [facility] WITH AUTO [id number] 12:10:00 Test Item Value Reference Range Interpretation [...] code = IG%) 0.8 % 0.0-0.4 H [facility] CHEM [id number] 12:08:00 Test Item Value Reference Range Interpretation [...] = CREA) 0.5 mg/dl 0.6-1.3 L STLMLCULTURE, [id number] 08:26:00Specimen: Urine SpecimensCollected: 02/23/2021 08:35 Status: Final Last Updated: 02/24/2021 08:26 CULTURE (Final) (Final) Many Mixed Body Gabriela Isolated No Pathogens IsolatedSTLMLCT ABDOMEN/PELVIS W/[id number] 11:40:43 [facility]Name: LAUREN BETH : 1985 Sex: FProcedure: CT ABDOMEN/PELVIS W/CONTRASTOrder date: 02/23/2021 10:08 AMOrdering Provider: REHAN Farrellinical Indication: [id number]: Right lower quadrant painComparison: November 14, 2020Technique: [...] MD 111:35 AMDictated By: WILEY VELÁZQUEZDate: 02/23/2021 11:[id number] 10:44:00 Test Item Value Reference Range Interpretation Comments Lipase (test code = LIPA) 86 U/L 73-393 STLMLURINALYSIS WITH [id number] 08:58:00 Test Item Value Reference Range Interpretation Comments Color (test code = Light-Yellow UCOLR) Clarity (test code = Clear UCLAR) Glucose (test code = NEGATIVE NEGATIVE N UGLUC) Bilirubin (test code NEGATIVE NEGATIVE N = UBILI) Ketones (test code = NEGATIVE NEGATIVE N UKET) Specific Hilbert 1.020 1.005-1.030 A (test code = USPGR) Blood (test code = NEGATIVE NEGATIVE N UBLD) PH (test code = UPH) 6.0 4.5-8.0 A Protein (test code = NEGATIVE NEGATIVE N UPROT) Urobilinogen (test 0.2 See_Comment N [Automat ed message] code = U UROB) The system [facility] generated this result transmit michael reference range [...] 41-50 0-10 A (test code = SQEP) [facility] CBC WITH AUTO [id number] 08:52:00 Test Item Value Reference Range Interpretation [...] (test code = IG%) 0.3 % 0.0-0.4 [facility] CHEM [id number] 08:52:00 Test Item Value Reference Range Interpretation [...] (test code = CREA) 0.6 mg/dl 0.6-1.3 [facility] CBC WITH AUTO [id number] 02:37:00 Test Item Value Reference Range Interpretation [...] A value of 55 was entered by [id number] on 01/10/2021 02:3 7 Lymphocytes (test 43 % 13-42 H No previou s value code = LYMPH) was reported. A value of 43 was entered by [id number] on 01/10/2021 02:3 7 Monocytes (test 1 % 4-14 L No previous value code = MONOS) was reported. A value of 1 was entered by [id number] on 01/10/2021 02:3 7 Basophils (test 1 % 0-1 No previous value code = BASO) was reported. A value of 1 was entered by [id number] on 01/10/2021 02:3 7 Normal Morphology Normal WBC RBC Normal RBC \\T\\ N No pre vious value (test code = NRCM) and Platelet WBC was repor michael. A Morphology Morphology,Normal value of N ormal WBC RBC and WBC RBC and Platelet Platelet Morphology Morphology was entered by [id number] on 01/10/2021 02:3 7 STLMLAMYLASE, [id number] 02:14:00 Test Item Value Reference Range Interpretation Comments Amylase (test code = AMYL) 46 U/L 25-115 [id number] 02:14:00 Test Item Value Reference Range Interpretation Comments Lipase (test code = LIPA) 115 U/L 73-393 STLMLURINALYSIS WITH [id number] 02:07:00 Test Item Value Reference Range Interpretation Comments Color (test code = Light-Yellow UCOLR) Clarity (test code = Cloudy UCLAR) Glucose (test code = NEGATIVE NEGATIVE N UGLUC) Bilirubin (test code NEGATIVE NEGATIVE N = UBILI) Ketones (test code = NEGATIVE NEGATIVE N UKET) Specific Hilbert 1.025 1.005-1.030 A (test code = USPGR) Blood (test code = NEGATIVE NEGATIVE N UBLD) PH (test code = UPH) 6.0 4.5-8.0 A Protein (test code = NEGATIVE NEGATIVE N UPROT) Urobilinogen (test 0.2 See_Comment N [Automat ed message] code = U UROB) The system [facility] generated this result transmit michael reference range [...] Epithelial (test code = NSE) STLMLSTAT LAB CHEM [id number] 01:50:00 Test Item Value Reference Range Interpretation [...] (test code = CREA) 0.6 mg/dl 0.6-1.3 [facility] CT ABD PELVIS W/[id number] 03:46:00 [facility] [place] : 1985 Sex: F FAX: Annemarie Tesfyae [phone] [place]: St: REG Name: LAUREN BETH [facility] : 1985 Age/S: 35/F [address] Unit: [id number] Loc: [place] [address] Phys: Annemarie Tesfaye AIR D[employer]ER Acct: [id number] Dis Date: Status: REG ER PHONE #: [phone] Exam Date: 12/13/2020 0325 FAX #: [phone] Reason: DIFFUSE ABD PAIN WORSE RLQ, HX APPY, ROSE EXAMS: CPT CODE: [id number] CT ABD PELVIS W/CONT 76966 AFTER HOURS SERVICE ON: 12/13/2020 3:44 AM [...] the stomach, cholecystectomy, appendectomy and hysterectomy. at 8456 Reported and signed by: Neo Batres PAGE 1 Signed Report (CONTINUED) FAX: Annemarie Tesfaye [phone] [place]: St: REG-------- Name: LAUREN BETHHFiorella : 1985 Age/S: 35/F [address] Unit: [id number] Loc: [place] [address] Phys: Annemarie Tesfaye AIR DRIER Acct: [id number] Dis Date: Status: REG ER PHONE #: [phone] Exam Date: 12/13/2020 0325 FAX #: [phone] Reason: DIFFUSE ABD PAIN WORSE RLQ, HX APPY, ROSE EXAMS: CPT CODE: [id number] CT ABD PELVIS W/CONT 46164 <Continued> CC: Annemarie Tesfaye AIR DRIER Technologist: PAMELA KRISHNAMURTHY; Jessi Guillory; JAIRO SANCHEZ JR Trnscrd Dt/Tm: 12/13/2020 (0346) SouravREmmaMA50 Orig Print D/T: S: 12/13/2020 (7289 PAGE 2 Signed ReportCOMPREHENSIVE METABOLIC [id number] 03:32:00 Test Item Value Reference Range Interpretation [...] U/L 38-126 N (test code = ALKP) [id number] 03:32:00 Test Item Value Reference Range Interpretation Comments LIPASE (test code = LIP) 82 U/L 23-300 N BEDSIDE [id number] 03:24:00 Test Item Value Reference Range Interpretation Comments BEDSIDE CREATININE (test code = 0.60 mg/dL 0.51-1.19 N CREATBED) CBC W/AUTO [id number] 03:14:00 Test Item Value Reference Range Interpretation [...] 0.0-0.1 N UA RFLX MICR CULT IF [id number] 02:59:00 Test Item Value Reference Range Interpretation [...] OF URINE: VOIDEDSTAT LAB CBC WITH AUTO [id number] 15:12:00 Test Item Value Reference Range Interpretation [...] entered by [id number] on 12/12/2020 15:12 [facility] [place] [facility] CHEM [id number] 14:08:00 Test Item Value Reference Range Interpretation [...] = CREA) 0.5 mg/dl 0.6-1.3 L [facility] [place] [facility] URINALYSIS WITHOUT [id number] 12:08:00 Test Item Value Reference Range Interpretation Comments Color (test code = Light-Yellow UCOLR) Clarity (test code = Cloudy UCLAR) Glucose (test code = NEGATIVE NEGATIVE N UGLUC) Bilirubin (test code NEGATIVE NEGATIVE N = UBILI) Ketones (test code = NEGATIVE NEGATIVE N UKET) Specific Hilbert 1.015 1.005-1.030 A (test code = USPGR) Blood (test code = NEGATIVE NEGATIVE N UBLD) PH (test code = UPH) 7.0 4.5-8.0 A Protein (test code = NEGATIVE NEGATIVE N UPROT) Urobilinogen (test 0.2 See_Comment N [Automat ed message] code = U UROB) The system [facility] generated this result transmit michael reference range : 0.2. The refere nce range was not u sed to interpret th is result as normal/abnormal . Nitrite (test code = NEGATIVE NEGATIVE N UNITR) Leukocyte Esterase NEGATIVE NEGATIVE N (test code = ULEUK) [facility] (LIVER)2020-11-21 08:43:00 Test Item [...] (test code = 0.4 mg/dl 0.0-1.1 IBIL) [facility]URINALYSIS WITH [id number] 08:31:00 Test Item Value Reference Range Interpretation Comments Color (test code = Light-Yellow UCOLR) Clarity (test code = Clear UCLAR) Glucose (test code = NEGATIVE NEGATIVE N UGLUC) Bilirubin (test code NEGATIVE NEGATIVE N = UBILI) Ketones (test code = NEGATIVE NEGATIVE N UKET) Specific Hilbert 1.020 1.005-1.030 A (test code = USPGR) Blood (test code = NEGATIVE NEGATIVE N UBLD) PH (test code = UPH) 6.5 4.5-8.0 A Protein (test code = NEGATIVE NEGATIVE N UPROT) Urobilinogen (test 0.2 See_Comment N [Automat ed message] code = U UROB) The system [facility] generated this result transmit michael reference range [...] TNTC 0-10 A (test code = SQEP) [facility] [place] [facility] CHEM [id number] 08:27:00 Test Item Value Reference Range Interpretation [...] = CREA) 0.5 mg/dl 0.6-1.3 L [facility] [place] [facility] CBC WITH AUTO [id number] 08:26:00 Test Item Value Reference Range Interpretation [...] code = IG%) 0.4 % 0.0-0.[address] [facility]-[place]ufkinXR ABDOMEN 2 VIEWS FLAT / [id number] 08:18:50[facility] ([facility]/)Name: KELL BETHALECIA [place] : 1985 Sex: FProcedure: XR ABDOMEN 2 VIEWS FLAT / UPRIGHTOrder Date: 11/21/2020 7:43 AMOrdering Provider: REHAN Farrellinical Indication: [id number]: Abdominal painComparison: Nov 14 2020Findings:Bowel gas pattern is non-obstructive. No pneumoperitoneum.There is moderate volume stool burden.Surgical clips in the right upper quadrant of the abdomen.Impression:Nonobstructive bowel gas pattern.This final reportwas electronically signed by Dr Silver Benitez MD :13 AMDictated By: Chante BENITEZ: 11/21/2020 08:13[facility] ABDOMEN/PELVIS W/O CONTRAST 2020-11-14 14:11:31 [facility])Name: BETHLAUREN : 1985 Sex: FProcedure: CT ABDOMEN/PELVIS W/O CONTRASTOrder Date: 11/14/2020 1:22 PMOrdering Provider: BILLY ACOSTA .Clinical Indication: [id number]: Right flank painComparison: Renal ultrasound November 08, [...] MD 12:05 PMDictated By: FARZAD DEWITTDate: 11/14/2020 14:05[facility] , [id number] 13:31:00 Test Item Value Reference Range Interpretation Comments (Urine) (test code = Negative PREGU) ONLY AVAILABLE 8A-12[facility] LAB CHEM [id number] 11:09:00 Test Item Value Reference Range Interpretation [...] = CREA) 0.5 mg/dl 0.6-1.3 L [facility] [place] [facility] URINALYSIS WITHOUT [id number] 11:08:00 Test Item Value Reference Range Interpretation Comments Color (test code = Yellow Lt. Yellow A UCOLR) Clarity (test code = Clear UCLAR) Glucose (test code = Negative Negative N UGLUC) Bilirubin (test code Negative Negative N = UBILI) Ketones (test code = Negative Negative N UKET) Specific Hilbert 1.025 1.005-1.030 A (test code = USPGR) Blood (test code = Trace-intact Negative A UBLD) PH (test code = UPH) 6.0 4.5-8.0 A Protein (test code = Negative Negative N UPROT) Urobilinogen (test 0.2 See_Comment N [Automat ed message] code = U UROB) The system [facility] generated this result transmit michael reference range : 0.2. The refere nce range was not u sed to interpret th is result as normal/abnormal . Nitrite (test code = Negative Negative N UNITR) Leukocyte Esterase Negative Negative N (test code = ULEUK) [facility] [place] [facility] CBC WITH AUTO [id number] 11:05:00 Test Item Value Reference Range Interpretation [...] code = IG%) 0.4 % 0.0-0.4 [facility] CenterCULTURE, [id number] 08:43:00Specimen: Urine SpecimensCollected: 11/08/2020 09:59 Status: Final Last Updated: 11/09/2020 08:43 CULTURE (Final) (Final) Few Mixed Body Gabriela Isolated No Pathogens [facility]olatedMemorial [facility]-LufkinUS RENAL & BLADDER (KIDNEYS)2020-11-08 12:00:28[facility])Name: LAUREN BETH : 1985 Sex: FProcedure: US [...] AMDictated By: GLORY BENITEZKDate: 11/08/2020 11:54[facility]ERURINALYSIS WITH MICROSCOPIC 2020-11-08 10:58:00 Test Item Value Reference Range Interpretation Comments Color (test code = Yellow UCOLR) Clarity (test code = Clear UCLAR) Glucose (test code = NEGATIVE NEGATIVE N UGLUC) Bilirubin (test code = NEGATIVE NEGATIVE N UBILI) Ketones (test code = NEGATIVE NEGATIVE N UKET) Specific Hilbert (test 1.030 1.005-1.030 A code = USPGR) Blood (test code = NEGATIVE NEGATIVE N UBLD) PH (test code = UPH) 6.0 4.5-8.0 A Protein (test code = NEGATIVE NEGATIVE N UPROT) Urobilinogen (test code 0.2 See_Comment N [Au tomated message] = U UROB) The system [employer] generated this result transmitted ref erence range: [...] 51-74 0-10 A (test code = SQEP) [facility] TownshipstefanieCUMICAELA, [id number] 08:13:00ER 17Specimen: Urine SpecimensCollected: 11/01/2020 01:10 Status: Final Last Updated: 11/02/2020 08:13 (1) ER 17 CULTURE (Final) (Final) Few Mixed Body Gabriela Isolated No Pathogens IsolatedGundersen St [facility]-LufkinXR ABD SERIES W/PA CXR 2020-11-01 03:48:37 [facility])Name: LAUREN BETH : 1985 Sex: FPROCEDURE [...] CDT.Dictated By: FILIPPO RAMOSDate: 11/01/2020 03:48[facility]ERHEPATIC FUNCTION PANEL (LIVER)2020-11-01 02:14:00 Test Item Value [...] (test code = 0.1 mg/dl 0.0-1.1 IBIL) [address] LAB CHEM [id number] 01:57:00 Test Item Value Reference Range Interpretation [...] = CREA) 0.5 mg/dl 0.6-1.3 L ER [address] [place] [address]-LufkinURINALYSIS WITH [id number] 01:56:00 Test Item Value Reference Range Interpretation Comments Color (test code = Light-Yellow UCOLR) Clarity (test code = Clear UCLAR) Glucose (test code = 50 NEGATIVE A UGLUC) Bilirubin (test code NEGATIVE NEGATIVE N = UBILI) Ketones (test code = NEGATIVE NEGATIVE N UKET) Specific Hilbert 1.025 1.005-1.030 A (test code = USPGR) Blood (test code = NEGATIVE NEGATIVE N UBLD) PH (test code = UPH) 6.0 4.5-8.0 A Protein (test code = TRACE NEGATIVE A UPROT) Urobilinogen (test 0.2 See_Comment N [Automat ed message] code = U UROB) The system [employer] generated this result transmit michael reference range [...] 0-10 A (test code = SQEP) ER [address] [place], [place] [address]fkinSTA LAB CBC WITH AUTO [id number] 01:55:00 Test Item Value Reference Range Interpretation [...] code = IG%) 0.4 % 0.0-0.[address] [place], [place] [address]HEPATIC FUNCTION PANEL (LIVER)2020-10-05 01:26:00 Test Item Value [...] code = 0.1 mg/dl 0.0-1.1 IBIL) er [address] [place], [place] [address]Dygpah-[id number] 01:26:00 Test Item Value Reference Range Interpretation Comments Lipase (test code = LIPA) 154 U/L 73-[address] [place] [address] LAB CHEM [id number] 01:15:00 Test Item Value Reference Range Interpretation [...] code = CREA) 0.6 mg/dl 0.6-1.[address] [place] [address] LAB , [id number] 01:14:00 Test Item Value Reference Range Interpretation Comments (Urine) (test code = Negative PREGU) er [address] [place] [address] LAB CBC WITH AUTO [id number] 01:13:00 Test Item Value Reference Range Interpretation [...] = IG%) 0.9 % 0.0-0.[address] [facility] ClinicsNkeadb-[id number] 04:21:00 Test Item Value Reference Range Interpretation Comments Lipase (test code = LIPA) 146 U/L 73-393 [facility]HEPAT[facility] FUNCTION PANEL (LIVER)2020-09-18 04:21:00 Test Item [...] (test code = 0.1 mg/dl 0.0-1.1 IBIL) [facility] CenterAMYLASE, [id number] 04:21:00 Test Item Value Reference Range Interpretation Comments Amylase (test code = AMYL) 47 U/L 25-[address] [facility]-[place]URINALYSIS WITH [id number] 03:06:00 Test Item Value Reference Range Interpretation Comments Color (test code = Light-Yellow UCOLR) Clarity (test code = Clear UCLAR) Glucose (test code = NEGATIVE NEGATIVE N UGLUC) Bilirubin (test code NEGATIVE NEGATIVE N = UBILI) Ketones (test code = TRACE NEGATIVE A UKET) Specific Hilbert 1.025 1.005-1.030 A (test code = USPGR) Blood (test code = NEGATIVE NEGATIVE N UBLD) PH (test code = UPH) 5.5 4.5-8.0 A Protein (test code = NEGATIVE NEGATIVE N UPROT) Urobilinogen (test 0.2 See_Comment N [Automat ed message] code = U UROB) The system [facility] generated this result transmit michael reference range [...] SEEN A Epithelial (test code = NSE) [facility] [place] [facility] CHEM [id number] 02:51:00 Test Item Value Reference Range Interpretation [...] code = CREA) 0.6 mg/dl 0.6-1.3 [facility] [place] [facility] CBC WITH AUTO [id number] 02:50:00 Test Item Value Reference Range Interpretation [...] = IG%) 0.5 % 0.0-0.[address] [facility]-[place]XR ABDOMEN 1 VIEW (KUB)2020-09-12 01:51:21 [facility] ([facility]/[place])Name: LAUREN BETH : 1985 Sex: FPROCEDURE INFORMATION:Exam: [...] CDT.Dictated By: CELESTINO ALLENDate: 09/12/2020 01:50[facility] [place] [facility] CBC WITH AUTO [id number] 01:29:00 Test Item Value Reference Range Interpretation [...] code = IG%) 0.4 % 0.0-0.4 [facility] [place] [facility] CHEM [id number] 01:28:00 Test Item Value Reference Range Interpretation [...] code = CREA) 0.6 mg/dl 0.6-1.[address] [facility]-fkinURINALYSIS WITH [id number] 03:04:00 Test Item Value Reference Range Interpretation Comments Color (test code = Yellow UCOLR) Clarity (test code = Clear UCLAR) Glucose (test code = 100 NEGATIVE A UGLUC) Bilirubin (test code = NEGATIVE NEGATIVE N UBILI) Ketones (test code = TRACE NEGATIVE A UKET) Specific Hilbert (test >=1.030 1.005-1.030 A code = USPGR) Blood (test code = NEGATIVE NEGATIVE N UBLD) PH (test code = UPH) 5.5 4.5-8.0 A Protein (test code = NEGATIVE NEGATIVE N UPROT) Urobilinogen (test code 0.2 See_Comment N [Au tomated message] = U UROB) The system [employer] generated this result transmitted ref erence range: [...] code = 3+ None Seen,Trace A UBACT) [facility]-[id number] 03:01:00 Test Item Value Reference Range Interpretation [...] and management of c hronic kidney failure. [facility] ClinicsQraxlr-[id number] 03:01:00 Test Item Value Reference Range Interpretation Comments Lipase (test code = LIPA) 145 U/L 73-393 [facility] [place] [facility] TEST, Serum Qualitative 2020-08-22 02:48:00 Test Item Value Reference Range Interpretation Comments (Serum) (test code = Negative PREGS) [facility] [place] [facility] CBC WITH AUTO [id number] 02:28:00 Test Item Value Reference Range Interpretation [...] = IG%) 0.5 % 0.0-0.4 H [facility] CenterHEPATIC FUNCTION PANEL (LIVER)2020-08-06 02:59:00 Test Item [...] (test code = 0.1 mg/dl 0.0-1.1 IBIL) [address]-[id number] 02:59:00 Test Item Value Reference Range Interpretation Comments Lipase (test code = LIPA) 167 U/L 73-[address] [place] [address]-[place]ufkinURINALYSIS WITH [id number] 02:48:00 Test Item Value Reference Range Interpretation Comments Color (test code = UCOLR) Yellow Clarity (test code = UCLAR) Clear Glucose (test code = UGLUC) NEGATIVE NEGATIVE N Bilirubin (test code = UBILI) NEGATIVE NEGATIVE N Ketones (test code = UKET) NEGATIVE NEGATIVE N Specific Hilbert (test code = >=1.030 1.005-1.030 A USPGR) [...] code = UBACT) 4+ None Seen,Trace A [address]-[place]CT ABDOMEN/PELVIS W/O [id number] 02:34:52ER 16 R/O KIDNEY STONE [facility] ([facility]/[place])Name: LAUREN BETH : [id number] Sex: FPROCEDURE INFORMATION:Exam: CT Abdomen And Pelvis [...] 2:34 AM CDT.Dictated By: HOLLIS FERRERADate: 08/06/2020 02:34[facility] CHEM 8 2020-08-06 02:29:00 Test Item [...] code = CREA) 0.4 mg/dl 0.6-1.[address] LAB CBC WITH AUTO [id number] 02:29:00 Test Item Value Reference Range Interpretation [...] = IG%) 0.7 % 0.0-0.4 H ER [address] [place], [place] [address]Sblakk-[id number] 09:31:00 Test Item Value Reference Range Interpretation Comments Lipase (test code = LIPA) 117 U/L 73-393 [facility] CenterHEPATIC FUNCTION PANEL (LIVER)2020-07-19 09:31:00 Test Item [...] (test code = 0.3 mg/dl 0.0-1.1 IBIL) [facility]utefkinXR ABDOMEN 2 VIEWS FLAT / [id number] 09:22:50[facility] ([facility]/[place])Name: LAUREN BETH : [id number] Sex: FProcedure: XR ABDOMEN 2 VIEWS FLAT / UPRIGHTOrder Date: 07/19/2020 8:40 AMOrdering Provider: REHAN COTTON .Clinical Indication: [id number]: Abdominal painComparison: July 05, 2020Findings:Postoperative change consisting [...] AMDictated By: FARZAD DEWITT.Date: 07/19/2020 09:17[facility] CHEM [id number] 09:10:00 Test Item Value Reference Range Interpretation [...] = CREA) 0.5 mg/dl 0.6-1.3 L [facility] [place] [place] [facility] CBC WITH AUTO [id number] 09:09:00 Test Item Value Reference Range Interpretation [...] = IG%) 0.7 % 0.0-0.4 H [facility] [place] [facility] URINALYSIS WITHOUT [id number] 09:08:00 Test Item Value Reference Range Interpretation Comments Color (test code = UCOLR) Yellow Lt. Yellow A Clarity (test code = UCLAR) Clear Glucose (test code = UGLUC) Negative Negative N Bilirubin (test code = UBILI) Negative Negative N Ketones (test code = UKET) Negative Negative N Specific Hilbert (test code = USPGR) >=1.030 1.005-1.030 A Blood (test code = UBLD) Negative Negative N PH (test code = UPH) 6.0 4.5-8.0 A Protein (test code = UPROT) Negative Negative N Urobilinogen (test code = U UROB) 0.2 >0.2 N Nitrite (test code = UNITR) Negative Negative N Leukocyte Esterase (test code = Negative Negative N ULEUK) [facility]-LufkinCULTURE, [id number] 08:00:00Specimen: Urine SpecimensCollected: 07/05/2020 03:00 Status: Final Last Updated: 07/07/2020 08:00 CULTURE (Final) (Final) No Growth After [address] [facility]-LukinXR ABDOMEN 1 VIEW (KUB)2020-07-05 04:07:04 [facility] ([facility]/[place])Name: LAUREN BETH : [id number] Sex: FPROCEDURE INFORMATION:Exam: XR Abdomen, 1 ViewExam [...] 4:06 AM CDT.Dictated By: OSKAR CRANEte: 07/05/2020 04:06[facility] , [id number] 03:54:00 Test Item Value Reference Range Interpretation Comments (Urine) (test code = Negative PREGU) [facility] [place] [facility] CHEM [id number] 03:53:00 Test Item Value Reference Range Interpretation [...] = CREA) 0.5 mg/dl 0.6-1.3 L [facility] [place] [facility] CBC WITH AUTO [id number] 03:51:00 Test Item Value Reference Range Interpretation [...] IG%) 0.4 % 0.0-0.4 [facility] CenterkinURINALYSIS WITH [id number] 03:33:00 Test Item Value Reference Range Interpretation Comments Color (test code = UCOLR) Yellow Clarity (test code = UCLAR) Clear Glucose (test code = UGLUC) NEGATIVE NEGATIVE N Bilirubin (test code = UBILI) Small NEGATIVE A Ketones (test code = UKET) TRACE NEGATIVE A Specific Hilbert (test code = USPGR) 1.020 1.005-1.030 A [...] = UBACT) Trace None Seen,Trace N [facility]-[place]kinCT ABDOMEN/PELVIS W/[id number] 16:44:35 [facility] ([facility]/[place])Name: LAUREN BETH : [id number] Sex: FProcedure: CT ABDOMEN/PELVIS W/CONTRASTOrder date: 06/07/2020 3:47 PMOrdering Provider: REHAN Farrellinical Indication: [id number]: Left flank painComparison: 06/07/20Technique: Multiple axial helical [...] MD 06/07/20204:38 PMDictated By: WILEY VELÁZQUEZDate: 06/07/2020 16:38[facility] KLEBERGURINALYSIS WITH [id number] 15:22:00 Test Item Value Reference Range Interpretation Comments Color (test code = UCOLR) Yellow Clarity (test code = UCLAR) Clear Glucose (test code = UGLUC) NEGATIVE NEGATIVE N Bilirubin (test code = UBILI) NEGATIVE NEGATIVE N Ketones (test code = UKET) NEGATIVE NEGATIVE N Specific Hilbert (test code = USPGR) 1.020 1.005-1.030 A [...] = UBACT) Trace None Seen,Trace N [facility] [place] [facility] CHEM [id number] 15:10:00 Test Item Value Reference Range Interpretation [...] = CREA) 0.4 mg/dl 0.6-1.3 L [facility] [place] [facility] CBC WITH AUTO [id number] 15:08:00 Test Item Value Reference Range Interpretation [...] code = IG%) 0.5 % 0.0-0.4 H [facility] ABD/ PELVIS W/O CON (RENAL STONE)2020-06-07 14:56:05[facility] ([facility]/[place])Name: LAUREN BETH : [id number] Sex: FProcedure: CT ABD/ PELVIS W/O CON (RENAL STONE)Order date: 06/07/2020 2:18 PMOrdering Provider: REHAN Farrellinical Indication: [id number]: Left flank painComparison: 05/31/20TECHNIQUE: Using a helical [...] 06/07/20202:49PMDictated By: WILEY VELÁZQUEZDate: 06/07/2020 14:49[facility] ABDOMEN/PELVIS W/O [id number] 12:27:07NPO 4 hours. Do not withhold meds hyst [facility] ([facility]/[place])Name: LAUREN BETH : [id number] Sex: FProcedure: CT ABDOMEN/PELVIS W/O CONTRASTOrder Date: 05/31/2020 10:25 AMOrdering Provider: Zoltan MCBRIDEClinical Indication: [id number]: Pain radiating to right flankComparison: March 20, [...] PMDictated By: FARZAD DEWITT.Date: 05/31/2020 12:20[id number] 11:48:00 Test Item Value Reference Range Interpretation Comments Lipase (test code = LIPA) 116 U/L 73-393 [facility] [place] [facility] URINALYSIS WITHOUT [id number] 10:59:00 Test Item Value Reference Range Interpretation Comments Color (test code = UCOLR) Light yellow Lt. Yellow A Clarity (test code = UCLAR) Clear Glucose (test code = UGLUC) Negative Negative N Bilirubin (test code = UBILI) Negative Negative N Ketones (test code = UKET) Negative Negative N Specific Hilbert (test code = 1.025 1.005-1.030 A USPGR) Blood (test code = UBLD) Negative Negative N PH (test code = UPH) 6.0 4.5-8.0 A Protein (test code = UPROT) Negative Negative N Urobilinogen (test code = U 0.2 >0.2 N UROB) Nitrite (test code = UNITR) Negative Negative N Leukocyte Esterase (test code = Negative Negative N ULEUK) [facility] [place] [facility] CBC WITH AUTO [id number] 10:58:00 Test Item Value Reference Range Interpretation [...] = IG%) 0.5 % 0.0-0.4 H [facility] [place] [facility] CHEM [id number] 10:53:00 Test Item Value Reference Range Interpretation [...] = CREA) 0.5 mg/dl 0.6-1.[address] [facility]-[place]XR ABDOMEN 1 VIEW (KUB)2020-04-25 21:02:16 [facility] ([facility]/[place])Name: LAUREN BETH : [id number] Sex: FPROCEDURE INFORMATION:Exam: XR Abdomen, 1 ViewExam [...] PM CDT. Dictated By: TEJAS RODRIGUEZDate: 04/25/2020 21:02[facility] KLEBERGURINALYSIS WITH [id number] 18:57:00 Test Item Value Reference Range Interpretation Comments Color (test code = UCOLR) Yellow Lt. Yellow A Clarity (test code = UCLAR) Clear Glucose (test code = UGLUC) Negative Negative N Bilirubin (test code = UBILI) Negative Negative N Ketones (test code = UKET) Negative Negative N Specific Hilbert (test code = 1.020 1.005-1.030 A USPGR) [...] code = UBACT) 4+ None Seen,Trace A [facility] [place] [facility] CBC WITH AUTO [id number] 18:55:00 Test Item Value Reference Range Interpretation [...] of Platel et clumping was entered by [id number] on 04/25/2020 18:5 5 [facility] [place] [facility] CHEM [id number] 18:17:00 Test Item Value Reference Range Interpretation [...] code = CREA) 0.4 mg/dl 0.6-1.3 L [facility]CUCOMM[facility] [id number] 15:20:00FIRST DRAW = 1 aerobic and 1 anerobic CultureSpecimen: BloodCollected: 03/20/2020 18:30 Status: Final Last Updated: 03/26/2020 15:19 (1) FIRST DRAW = 1 aerobic and 1 anerobic Culture CULTURE (Final) (Final) No Growth After 5 DaysU[facility], [id number] 15:20:00FIRST DRAW = 1 aerobic and 1 anerobic CultureSpecimen: BloodCollected: 03/20/2020 18:30 Status: Final Last Updated: 03/26/2020 15:19 (1) FIRST DRAW = 1 aerobic and 1 anerobic Culture CULTURE (Final) (Final) No Growth After [address] [facility]-[place]ufkinCT ABDOMEN/PELVIS W/[id number] 21:46:442 weeks s/p adhesolysis. Vomiting/pain/fever. Please do CT with PO and IV contrastProcedures: CT ABDOMEN/PELVIS W/CONTRASTExam Date: 03/20/2020 6:04 PMOrdering Physician: REHAN COTTONClinical Indication: [id number]: Abdominal painComparison: CT abdomen/pelvis, 02/25/20TECHNIQUE: Spiral multislice [...] 9:40 PMDictated By: ELMER PHAMDate:03/20/2020 21:40[facility] OF [facility]ERHEPATIC FUNCTION PANEL (LIVER)2020-03-20 19:24:00 Test Item Value [...] code = 0.3 mg/dl 0.0-1.1 IBIL) [facility] ClinicsVecoaf-[id number] 19:24:00 Test Item Value Reference Range Interpretation Comments Lipase (test code = LIPA) 69 U/L 73-[address] [facility] ClinicsRbgcgy-[id number] 19:24:00 Test Item Value Reference Range Interpretation Comments Magnesium (test code = MG) 2.0 mg/dl 1.6-2.6 [facility] [place] [facility] CHEM [id number] 18:43:00 Test Item Value Reference Range Interpretation [...] = CREA) 0.5 mg/dl 0.6-1.3 L [facility] [place] [facility] LACTIC [id number] 18:42:00 Test Item Value Reference Range Interpretation Comments LACTATE (test code = 2.50 mmol/l 0.90-1.70 HH R&RB sy rene hassan rn LAC) @1842 [facility] [place] [facility] CBC WITH AUTO [id number] 18:41:00 Test Item Value Reference Range Interpretation [...] code = IG%) 0.4 % 0.0-0.[address] [facility]-LufkinSP PERC PLMNT MIDLINE NO PORT > 5 [...] secured to the skin in the usual fashion.Transitional Nurse images were recorded and stored in the medical [facility] fordocumentation. The patient tolerated the procedure well and there were noimmediate complications.Impression:1. Successful upper extremity vascular access.This final report was electronically signed by Dr Farzad Dewitt MD 03/15/20201:14 PMDictated By: FARZAD DEWITTDate: 03/15/2020 13:14[facility]ERCORONAVIRUS 2019 (IN HOUSE)2020-03-13 21:03:00 Test Item Value Reference Range Interpretation Comments FT (test code Negative Negative N The BioGX SARS -CoV-2 = COVID) (qualifier value) Reagents f or BD MAX System, the Bio Fire Covid-19, and t he Cepheid Covid-1 9 is for in vitro us e under FDA Emergency U se Authorization o nly. Indeterminate r esults recommend recol lection of specimen. [facility]-LufkinXR ABD SERIES W/PA [id number] 17:33:07 Procedure: XR ABD SERIES W/PA CXROrder [...] PMDictated By: GLORY BENITEZKDate: 03/13/2020 17:26[facility]STAT LAB CBC WITH AUTO [id number] 17:23:00 Test Item Value Reference Range Interpretation [...] by [id number] on 03/13/2020 17:[address] [facility] ClinicsDenmtd-[id number] 17:23:00 Test Item Value Reference Range Interpretation Comments Lipase (test code = LIPA) 61 U/L 73-393 L [facility] CenterHEPAT[facility] FUNCTION PANEL (LIVER)2020-03-13 17:23:00 Test Item [...] (test code = 0.4 mg/dl 0.0-1.1 IBIL) [facility]-[place]kinURINALYSIS WITH [id number] 16:54:00 Test Item Value Reference Range Interpretation Comments Color (test code = UCOLR) Yellow Lt. Yellow A Clarity (test code = UCLAR) Clear Glucose (test code = UGLUC) Negative Negative N Bilirubin (test code = UBILI) Negative Negative N Ketones (test code = UKET) Negative Negative N Specific Hilbert (test code = >=1.030 1.005-1.030 A USPGR) [...] code = UBACT) 4+ None Seen,Trace A [facility] [place] [facility] CHEM [id number] 16:37:00 Test Item Value Reference Range Interpretation [...] = CREA) 0.4 mg/dl 0.6-1.[address] [facility] PER[facility] PLMNT MIDLINE NO PORT > 5 y/o W/IMAGING 2020-03-02 12:23:44Procedure: SP PERC PLMNT MIDLINE NO PORT > 5 y/o W/IMAGINGOrder Date: 03/02/2020 11:03 AMOrdering Provider: LAURA LICONAClinical Indication: Vascular accessTechnique:The patient was placed supine [...] MD 03/02/202012:17 PMDictated By: GLORY BENITEZKDate: 03/02/2020 12:17[facility]ERCORONAVIRUS [facility] (IN HOUSE)2020-03-01 18:48:00 Test Item Value Reference Range Interpretation Comments FT (test code Negative Negative N The BioGX SARS -CoV-2 = COVID) (qualifier value) Reagents f or BD MAX System, the Bio Fire Covid-19, and t he Cepheid Covid-1 9 is for in vitro us e under FDA Emergency U se Authorization o nly. Indeterminate r esults recommend recol lection of specimen. [facility]-LufkinPT AND [id number] 11:51:00 Test Item Value Reference Range Interpretation Comments Protime (test code 9.8 seconds 9.5-12.1 = PT) INR (test code = 0.9 0.9-1.1 INR results are intended INR) ONLY to monitor Oral Anticoagulant t herapy in stablized patie nts. The INR Therapeutic Range is 2.0 - 3.0 Patie nts with a mechanical he art, the INR Range is 2. 5 - 3.[address] [facility]-[id number] 11:51:00 Test Item Value Reference Range Interpretation Comments aPTT (test code = PTT) 27.4 seconds 23.9-30.[address] [facility] (HEMOGRAM ONLY)2020-03-01 11:44:00 Test Item Value Reference [...] ON THE RE PORT. [facility] CenterkinCULTURE, [id number] 08:08:00Specimen: Urine RandomCollected: 02/25/2020 11:27 Status: Final Last Updated: 02/27/2020 08:08 CULTURE (Final) (Final) No Growth After 48 HoursGundersen Lutheran Medical Centerkin [id number] 05:38:00 Test Item Value Reference Range Interpretation [...] hronic kidney failure. [facility] (Ultra Sensitive)2020-02-26 05:38:00 Test Item Value Reference Range Interpretation Comments TSH (test code = TSH) 0.04 mIU/L 0.35-3.74 L [facility] WITH AUTO [id number] 05:18:00 Test Item Value Reference Range Interpretation [...] 0.0-0.4 H IG%) CBC AUTO diffGundersen St [facility]S [facility] And Clinics-LufkinCORONAVIRUS 2019 (IN HOUSE)2020-02-25 14:06:00 Test Item Value Reference Range Interpretation Comments FT (test code Negative Negative N The BioGX SARS -CoV-2 = COVID) (qualifier value) Reagents f or BD MAX System, the Bio Fire Covid-19, and t he Cepheid Covid-1 9 is for in vitro us e under FDA Emergency U se Authorization o nly. Indeterminate r esults recommend recol lection of specimen. [facility]-LufkinURINALYSIS WITH [id number] 12:56:00 Test Item Value Reference Range Interpretation Comments Color (test code = UCOLR) Yellow Lt. Yellow A Clarity (test code = UCLAR) Slightly Cloudy Glucose (test code = UGLUC) Negative Negative N Bilirubin (test code = UBILI) Negative Negative N Ketones (test code = UKET) Negative Negative N Specific Hilbert (test code = >=1.030 1.005-1.030 A USPGR) [...] code = UBACT) Trace None Seen,Trace N [facility] CenterLIPASE2020-08-27 12:52:00 Test Item Value Reference Range Interpretation Comments Lipase (test code = LIPA) 90 U/L 73-393 [facility] CenterHEPATIC FUNCTION PANEL (LIVER)2020-02-25 12:52:00 Test Item [...] (test code = 0.3 mg/dl 0.0-1.1 IBIL) [facility] CenterCT ABDOMEN/PELVIS W/[id number] 12:42:41NPO 4 hours. Do not withhold medsProcedure: [...] MD 02/25/202012:36 PMDictated By: WILEY VELÁZQUEZDate: 02/25/2020 12:36[facility] 2020-02-25 12:07:00 Test Item Value [...] = CREA) 0.5 mg/dl 0.6-1.3 L [facility] [place] [facility] CBC WITH AUTO [id number] 12:05:00 Test Item Value Reference Range Interpretation [...] code = IG%) 0.3 % 0.0-0.4 [facility] [place] [facility] CBC WITH AUTO [id number] 03:15:00 Test Item Value Reference Range Interpretation [...] code = IG%) 0.6 % 0.0-0.4 H [facility] [place] [facility] CHEM [id number] 02:55:00 Test Item Value Reference Range Interpretation [...] code = CREA) 0.5 mg/dl 0.6-1.3 L [facility] ABDOMEN 1 VIEW (KUB)2020-02-25 02:45:30 PROCEDURE INFORMATION:Exam: [...] By: JORGE LUIS WHITEDate: 02/25/2020 02:45[facility] , URINE 2020-02-25 01:12:00 Test Item Value Reference Range Interpretation Comments (Urine) (test code = Negative PREGU) [facility] URINAL[facility] WITHOUT [id number] 01:11:00 Test Item Value Reference Range Interpretation Comments Color (test code = UCOLR) Yellow Lt. Yellow A Clarity (test code = UCLAR) Clear Glucose (test code = UGLUC) Negative Negative N Bilirubin (test code = UBILI) Negative Negative N Ketones (test code = UKET) Negative Negative N Specific Hilbert (test code = USPGR) >=1.030 1.005-1.030 A Blood (test code = UBLD) Negative Negative N PH (test code = UPH) 5.5 4.5-8.0 A Protein (test code = UPROT) Negative Negative N Urobilinogen (test code = U UROB) 0.2 >0.2 N Nitrite (test code = UNITR) Negative Negative N Leukocyte Esterase (test code = Negative Negative N ULEUK) [facility]-[place]kinXR ABDOMEN 1 VIEW (KUB)2020-02-10 06:46:05 Procedure: XR ABDOMEN 1 VIEW (KUB)Order date: 02/10/2020 4:01 AMOrdering Provider: JUAN Galiciainical Indication: Abdominal painComparison: NoneFindings:There is no small or large bowel distention.There is no pneumoperitoneum.There are no suspicious calcifications.There is no skeletal abnormality.Impression:1. Negative single view abdomen.This final report was electronically signed by Dr Wiley Velázquez MD 02/10/20206:39 AMDictated By: WILEY VELÁZQUEZDate: 02/10/2020 06:39[facility] RENAL & BLADDER (KIDNEYS)2020-02-10 05:31:33PROCEDURE [...] By: JORGE LUIS WHITEDate: 02/10/2020 05:31[facility]ERURINALYSIS WITH [id number] 05:10:00 Test Item Value Reference Range Interpretation Comments Color (test code = UCOLR) Yellow Lt. Yellow A Clarity (test code = UCLAR) Clear Glucose (test code = UGLUC) >=1000 Negative A Bilirubin (test code = UBILI) Negative Negative N Ketones (test code = UKET) Negative Negative N Specific Hilbert (test code = 1.015 1.005-1.030 A USPGR) [...] = UBACT) None Seen None Seen,Trace N [facility] ClinicsTpmrnx-[id number] 04:42:00 Test Item Value Reference Range Interpretation Comments Lipase (test code = LIPA) 91 U/L 73-393 [facility] CenterHEPATIC FUNCTION PANEL (LIVER)2020-02-10 04:42:00 Test Item [...] (test code = 0.2 mg/dl 0.0-1.1 IBIL) [facility] [place] [facility] CHEM [id number] 04:27:00 Test Item Value Reference Range Interpretation [...] code = CREA) 0.6 mg/dl 0.6-1.3 [facility] [place] [facility] , [id number] 04:24:00 Test Item Value Reference Range Interpretation Comments (Urine) (test code = Negative PREGU) [facility] [place] [facility] CBC WITH AUTO [id number] 04:22:00 Test Item Value Reference Range Interpretation [...] = IG%) 0.5 % 0.0-0.[address] [facility]CT L SPINE W/O [id number] 12:46:24 Procedure: CT L SPINE W/O CONTRASTOrder date: 01/25/2020 11:46 AMOrdering Provider: DONALD Healyinical Indication: [id number]: Low back painComparison: NoneTechnique: Using a multislice [...] MD 01/25/202012:39 PMDictated By: WILEY VELÁZQUEZDate: 01/25/2020 12:39[facility] KLEBERGHEPATIC FUNCTION PANEL (LIVER)2019-12-09 05:49:00 Test Item Value [...] (test code = 0.3 mg/dl 0.0-1.1 IBIL) [address]LIPASE2020-06-10 05:49:00 Test Item Value Reference Range Interpretation Comments Lipase (test code = LIPA) 105 U/L 73-[address] LAB CHEM [id number] 05:06:00 Test Item Value Reference Range Interpretation [...] code = CREA) 0.5 mg/dl 0.6-1.[address] LAB CBC WITH AUTO [id number] 05:04:00 Test Item Value Reference Range Interpretation [...] (test code = IG%) 0.4 % 0.0-0.[address]-[id number] 02:23:00 Test Item Value Reference Range Interpretation [...] and management of c hronic kidney failure. [facility]kinURINALYSIS WITH [id number] 02:11:00 Test Item Value Reference Range Interpretation Comments Color (test code = UCOLR) Yellow Lt. Yellow A Clarity (test code = UCLAR) Clear Glucose (test code = UGLUC) Negative Negative N Bilirubin (test code = UBILI) Negative Negative N Ketones (test code = UKET) Trace Negative A Specific Hilbert (test code = USPGR) >=1.030 1.005-1.030 A [...] = UBACT) 2+ None Seen,Trace A [facility] [place] [facility] CBC WITH AUTO [id number] 02:03:00 Test Item Value Reference Range Interpretation [...] code = IG%) 0.4 % 0.0-0.[address] [facility] ABDOMEN/PELVIS W/[id number] 22:43:00NPO 4 hours. Do not withhold meds [...] 201910:42 PM CDT.Dictated By: JOSUÉ MCGHEEDate: 10/07/2019 22:42[facility] 2019-10-07 22:05:00 Test Item [...] and management of c hronic kidney failure. [facility]-[place]ufkinAMYLASE, [id number] 22:05:00 Test Item Value Reference Range Interpretation Comments Amylase (test code = AMYL) 43 U/L 25-[address] [facility] ClinicsIzddus-[id number] 22:05:00 Test Item Value Reference Range Interpretation Comments Lipase (test code = LIPA) 95 U/L 73-[address] [facility]-[place]kinURINALYSIS WITH [id number] 21:49:00 Test Item Value Reference Range Interpretation Comments Color (test code = UCOLR) Yellow Lt. Yellow A Clarity (test code = UCLAR) Clear Glucose (test code = UGLUC) Negative Negative N Bilirubin (test code = UBILI) Negative Negative N Ketones (test code = UKET) 15 Negative A Specific Hilbert (test code = USPGR) >=1.030 1.005-1.030 A [...] = UBACT) 3+ None Seen,Trace A [facility] CBC WITH AUTO [id number] 21:45:00 Test Item Value Reference Range Interpretation [...] code = IG%) 0.4 % 0.0-0.4 [facility] [place] [facility] , [id number] 21:36:00 Test Item Value Reference Range Interpretation Comments (Urine) (test code = Negative PREGU) [facility] ABDOMEN/PELVIS W/O [id number] 03:56:36 PROCEDURE INFORMATION:Exam: CT Abdomen And Pelvis [...] AM CDT.Dictated By: AMY ORDOÑEZDate: 09/20/2019 03:56 [facility] [id number] 02:07:00 Test Item Value Reference Range Interpretation [...] and management of c hronic kidney failure. [facility]ufkinXR ABDOMEN 2 VIEWS FLAT / [id number] 02:01:15PROCEDURE INFORMATION:Exam: XR Abdomen, 2 ViewsExam date [...] 2:01 AM CDT.Dictated By: AMY ORDOÑEZDate: 09/20/2019 02:01[facility]INAL[facility] WITH MICROSCOPIC 2019-09-20 01:56:00 Test Item Value Reference Range Interpretation Comments Color (test code = UCOLR) Yellow Lt. Yellow A Clarity (test code = UCLAR) Clear Glucose (test code = UGLUC) >=1000 Negative A Bilirubin (test code = UBILI) Negative Negative N Ketones (test code = UKET) Trace Negative A Specific Hilbert (test code = USPGR) >=1.030 1.005-1.030 A [...] = UBACT) 2+ None Seen,Trace A [facility] [place] [facility] CBC WITH AUTO [id number] 01:38:00 Test Item Value Reference Range Interpretation [...] = IG%) 0.5 % 0.0-0.[address] [facility] ABDOMEN/PELVIS W/[id number] 04:23:30 PROCEDURE INFORMATION:Exam: CT Abdomen And Pelvis [...] CDT.Dictated By: SETH MEDINADate: 08/17/2019 04:23[facility] OF [id number] 03:34:00 Test Item Value Reference Range Interpretation Comments Lipase (test code = LIPA) 67 U/L 73-[address] [facility]-[id number] 03:34:00 Test Item Value Reference Range Interpretation [...] and management of c hronic kidney failure. [facility] CBC WITH AUTO [id number] 03:19:00 Test Item Value Reference Range Interpretation [...] = IG%) 0.7 % 0.0-0.[address] [facility]-fkinURINALYSIS WITH [id number] 03:10:00 Test Item Value Reference Range Interpretation Comments Color (test code = UCOLR) YELLOW Clarity (test code = UCLAR) CLEAR Glucose (test code = UGLUC) NEGATIVE NEGATIVE N Bilirubin (test code = UBILI) NEGATIVE NEGATIVE N Ketones (test code = UKET) NEGATIVE NEGATIVE N Specific Hilbert (test code = 1.025 1.005-1.030 A USPGR) [...] code = UBACT) 1+ None Seen,Trace A [facility] , [id number] 03:03:00 Test Item Value Reference Range Interpretation Comments (Urine) (test code = Negative PREGU) ONLY AVAILABLE 8A-12[facility]-[place] [address] [id number] 20:37:00 Test Item Value Reference Range Interpretation [...] (test code = CREA) 0.6 mg/dl 0.6-1.2 [facility]kinE [id number] 20:28:00 Test Item Value Reference Range Interpretation [...] code = MPV) 7.1 fL 8.0-11.[address] [facility]-[place] WendoverCULTURE, [id number] 08:44:52kna0Baaimroj: Urine SpecimensCollected: 07/12/2019 15:00 Status: Final Last Updated: 2019 08:44 (1) err7 Culture Result (Final) (Final) Moderate Mixed Body Gabriela Isolated No Pathogens Isolated No Further Workup PerformedGundersen St [facility]-LufkinFL LIMITED [id number] 17:53:41Procedures: [place] LIMITED IVPExam Date: 07/12/2019 3:21 PMOrdering Physician: REHAN COTTONClinical Indication: [id number]: Flank painComparison: CT abdomen/pelvis, 05/17/19Findings: Frontal radiographs [...] PMDictated By: ELMER PHAMDate: 07/12/2019 17:47[facility] OF [id number] 15:56:00 Test Item Value Reference Range Interpretation Comments Lipase (test code = LIPA) 97 U/L 73-[address]-[place]ufkinHEPATIC FUNCTION PANEL (LIVER)2019-07-12 15:56:00 Test Item [...] (test code = 0.2 mg/dl 0.0-1.1 IBIL) [address]-[place]kinURINALYSIS WITH [id number] 15:51:00 Test Item Value Reference Range Interpretation Comments Color (test code = UCOLR) YELLOW Clarity (test code = UCLAR) CLEAR Glucose (test code = UGLUC) NEGATIVE NEGATIVE N Bilirubin (test code = UBILI) NEGATIVE NEGATIVE N Ketones (test code = UKET) NEGATIVE NEGATIVE N Specific Hilbert (test code = 1.020 1.005-1.030 A USPGR) [...] code = UBACT) 4+ None Seen,Trace A [address] LAB CHEM [id number] 15:09:00 Test Item Value Reference Range Interpretation [...] (test code = CREA) 0.6 mg/dl 0.6-1.[address] LAB CBC WITH AUTO [id number] 15:08:00 Test Item Value Reference Range Interpretation [...] (test code = IG%) 0.4 % 0.0-0.[address]-[place]CT ABDOMEN/PELVIS W/[id number] 16:33:46NPO 4 hours. Do not withhold medsProcedures: CT ABDOMEN/PELVIS W/CONTRASTExam Date: 05/17/2019 1:31 PMOrdering Physician: MERLE LYNNEClinical Indication: [id number]: Abdominal painComparison: CT abdomen/pelvis, 04/09/19TECHNIQUE: Spiral multislice [...] MD05/17/2019 4:27 PMDictated By: ELMER PHAMDate: 05/17/2019 16:27[facility] [id number] 16:20:00 Test Item Value Reference Range Interpretation Comments Lipase (test code = LIPA) 70 U/L 73-393 L [facility] [place] [facility] CHEM [id number] 15:24:00 Test Item Value Reference Range Interpretation [...] = CREA) 0.5 mg/dl 0.6-1.3 L [facility] [place] [facility] LACTIC [id number] 15:23:00 Test Item Value Reference Range Interpretation Comments LACTATE (test code = LAC) 1.39 mmol/l 0.90-1.70 [facility] [place] [facility] CBC WITH AUTO [id number] 15:21:00 Test Item Value Reference Range Interpretation [...] = IG%) 0.5 % 0.0-0.[address] [facility]-[place]kinURINALYSIS WITH [id number] 15:08:00 Test Item Value Reference Range Interpretation Comments Color (test code = UCOLR) YELLOW Clarity (test code = UCLAR) CLEAR Glucose (test code = UGLUC) NEGATIVE NEGATIVE N Bilirubin (test code = UBILI) NEGATIVE NEGATIVE N Ketones (test code = UKET) NEGATIVE NEGATIVE N Specific Hilbert (test code = 1.025 1.005-1.030 A USPGR) [...] = UBACT) 2+ None Seen,Trace A [facility]-LukinCT ANGIO HEAD W/WO [id number] 16:28:5720 g Cathlon Above the Antecubital or higher requiredProcedure: CT ANGIO HEAD W/WO CONTRASTOrder Date: 05/12/2019 3:30 PMOrdering Provider: REHAN VANG SA NDERSClinical Indication: [id number]: HeadacheComparison: NoneTechnique: Using a helical scanner, sequential axial imaging of the brain wasobtained before and after the administration of the contrast medium. At anindependent workstation, 3-D reconstructions of the grand [place] of [place] wereobtained.This examwas performed according to [...] PMDictated By: FARZAD DEWITTDate: 05/12/2019 16:22[facility]ERCT ABDOMEN/PELVIS W/[id number] 14:36:05NPO 4 hours. Do not withhold medsProcedure: [...] PMDictated By: GLORY BENITEZKDate: 04/09/2019 14:29[facility] WITH AUTO [id number] 09:02:00 Test Item Value Reference Range Interpretation [...] code = 0.5 % 0.0-0.4 H IG%) [facility] WITH [facility]O [id number] 09:14:00 Test Item Value Reference Range Interpretation [...] (test code = 0.4 % 0.0-0.4 IG%) [facility]-[id number] 09:12:00 Test Item Value Reference Range Interpretation [...] and management of c hronic kidney failure. [facility]-LufkinSP PERC PLMNT MIDLINE NO PORT > 5 [...] PMDictated By: WILEY VELÁZQUEZDate: 04/07/2019 16:05[facility]ERCT ABDOMEN/PELVIS W/[id number] 22:50:40PROCEDURE INFORMATION:Exam: CT Abdomen and pelvis with [...] PM CDT.Dictated By: ELMER PHAMDate: 04/04/2019 22:50[id number] 21:22:00 Test Item Value Reference Range Interpretation Comments Lipase (test code = LIPA) 89 U/L 73-393 [facility] (LIVER)2019-04-04 21:22:00 Test Item [...] code = 0.3 mg/dl 0.0-1.1 IBIL) [facility] [place] [facility] CHEM [id number] 21:07:00 Test Item Value Reference Range Interpretation [...] code = CREA) 0.6 mg/dl 0.6-1.3 [facility] [place] [facility] URINALYSIS WITHOUT [id number] 21:05:00 Test Item Value Reference Range Interpretation Comments Color (test code = UCOLR) Yellow Lt. Yellow A Clarity (test code = UCLAR) Slightly Cloudy Glucose (test code = UGLUC) 100 Negative A Bilirubin (test code = UBILI) Negative Negative N Ketones (test code = UKET) Negative Negative N Specific Hilbert (test code = >=1.030 1.005-1.030 A USPGR) Blood (test code = UBLD) Negative Negative N PH (test code = UPH) 5.5 4.5-8.0 A Protein (test code = UPROT) Negative Negative N Urobilinogen (test code = U 0.2 >0.2 N UROB) Nitrite (test code = UNITR) Negative Negative N Leukocyte Esterase (test code Negative Negative N = ULEUK) [facility] [place] [facility] CBC WITH AUTO [id number] 21:04:00 Test Item Value Reference Range Interpretation [...] = IG%) 0.5 % 0.0-0.4 H [facility] [place] [facility] , [id number] 21:04:00 Test Item Value Reference Range Interpretation Comments (Urine) (test code = Negative PREGU) ONLY AVAILABLE 8A-12[facility]inED2 [id number] 16:05:00 Test Item Value Reference Range Interpretation Comments Sodium (test code = CANCELED mmol/l The r eleased value NA) 141 was cancele d by [id number] on 04/04/2019 16:0 5 Potassium (test code CANCELED mmol/l The released value = K) 3.9 was cancele d by [id number] on 04/04/2019 16:0 5 CO2 (test code = CANCELED mmol/l The rele ased value CO2) 23 was canceled by [id number] on 04/04/2019 16:0 5 Chloride (test code CANCELED mmol/l The r eleased value = CL) 108 was cancele d by [id number] on 04/04/2019 16:0 5 Glucose (test code = CANCELED mg/dl The r eleased value GLU) 96 was canceled by [id number] on 04/04/2019 16:0 5 Calcium (test code = CANCELED mg/dl The r eleased value CALC) 8.8 was cancele d by [id number] on 04/04/2019 16:0 5 BUN (test code = CANCELED mg/dl The relea sed value BUN) 11 was canceled by [id number] on 04/04/2019 16:0 5 Creatinine (test CANCELED mg/dl code = CREA) [facility]-LufkinHISTOLOGY [id number] 11:08:[address] [place] [address]Jqiyu: [phone] XHTN #: [id number] Academic Affairs Director: Seth Valdez M.D.Surgical Pathology Consultation ReportPatient Name: LAUREN BETH Case #: [id number] Med. Rec. #:[id number] [id number] Date: 03/21/2019 : 1985(Age:33) Received: 03/23/2019 [...] is labeled right ovary. Two pieces of lr-pink tissuemeasuring7.5 x 5 by up to 3.3 [...] dimension. The cystsarefilled with clear serous fluid. Transitional Nurse sections of the ovaryandpossible fallopian tube are submitted in cassettes A1-A8. /03/23/2019 Seth Valdez MD, Board Certified in Anatomic Pathology Microscopic DescriptionMicroscopic examination of the right ovary reveals fibrovascularadhesionsalong the surface of the ovary as well as along the accompanyingfallopiantube. The ovarian parenchyma contains follicular cysts, benign serouscyst,as well as numerous corpus albicans. No areas of endometriosis areseen. Billing Fee Code(s): A; 97479[facility]xA[facility] TRANSVAGINAL W/[id number] 16:45:00 Patient Name: ADELIA BETH Unit No: [id number] EXAMS: CPT CODE: [id number] US TRANSVAGINAL W/PELVIS 67720 CLINICAL HISTORY: Right lower quadrant pain. Status [...] MD Technologist: Dipesh Miranda RDMS, RVT Probe: [id number] Trnscrbd D/ (7805) t.MICAELAR.YOS Orig Print D/T: S: 03/10/2019 (2180) [facility] NAME: ADELIA BETH Radiology Department PHYS: GUTAL. - Hilaria Calderón [address] : 1985 AGE: 33 SEX: F [place] [address] LOC: ALONDRA PHONE #: [phone] EXAM DATE: 03/10/2019 STATUS: REG ER FAX #: [phone] RAD NO: Page 1 Signed Report Patient Name: ADELIA BETH Unit No: [id number] EXAMS: CPT CODE: [id number] US TRANSVAGINAL W/PELVIS 19005 <Continued> [facility] NAME: ADELIA BETH Radiology Department PHYS: SUE. - Hilaria Calderón [address] : 1985 AGE: 33 SEX: F [place] [address] : DayanaraERS PHONE #: [phone] EXAM DATE: 03/10/2019 STATUS: REG ER FAX #: [phone] RAD NO: Page 2 Signed Report- US TRANSVAGINAL W/PELVIS 2019-03-10 16:45:00 Patient Name: LAUREN BETH Unit No: [id number] EXAMS: CPT CODE: [id number] US TRANSVAGINAL W/PELVIS 18810 CLINICAL HISTORY: Right lower quadrant pain. Status [...] MD Technologist: Dipesh Miranda RDMS, T Probe: [id number] Trnscrbd D/ (2085) t.YOS Orig Print D/T: S: 03/10/2019 (2852) [facility] NAME: LAUREN BETH Radiology Department PHYS: GUTAL. - Hilaria Calderón [address] : 1985 AGE: 33 SEX: F [place] [address] LOC: DayanaraALLI PHONE #:[phone] EXAM DATE: 03/10/2019 STATUS: [facility] ER FAX #: [phone] RAD NO: [id number] Page 1 Signed Report Patient Name: LAUREN BETH Unit No: [id number] EXAMS: CPT CODE: [id number] US TRANSVAGINAL W/PELVIS 62386 (Continued) [facility] NAME: LAUREN BETH Radiology Department PHYS: BEBEAL. - Hilaria Calderón [address] : 1985 AGE: 33 SEX: F [place] [address] LOC: ALONDRA PHONE #: [phone] EXAM DATE: 03/10/2019 STATUS: [facility] ER FAX #: [phone] RAD NO: [id number] Page 2 Signed Report- US PELVIS [id number] 16:45:00 Patient Name: ADELIA BETH Unit No: [id number] EXAMS: CPT CODE: [id number] US PELVIS COMPLETE 25217 CLINICAL HISTORY: Right lower quadrant pain. Status [...] Dipesh Miranda RDMS, RVT Probe: Trnscrbd D/ (8075) VereniceYOS Orig Print D/T: S: 03/10/2019 (4925) [facility] NAME: ADELIA BETH Radiology Department PHYS: Hilaria Maldonado [address] : 1985 AGE: 33 SEX: F [place], [place] [address] LOC: ALONDRA PHONE #: [phone] EXAM DATE: 03/10/2019 STATUS: [facility] ER FAX #: [phone] RAD NO: Page 1 Signed Report Patient Name: ADELIA BETH Unit No: [id number] EXAMS: CPT CODE: [id number] US PELVIS COMPLETE 98125 <Continued> [facility] NAME: ADELIA BETH Radiology Department PHYS: SUE. - Hilaria Calderón [address] : 1985 AGE: 33 SEX: F [place], [place] [address] LOC: ALONDRA PHONE #: [phone] EXAM DATE: 03/10/2019 STATUS: REG ER FAX #: [phone] RAD NO: Page 2 Signed Report- US PELVIS [id number] 16:45:00 Patient Name: LAUREN BETH Unit No: [id number] EXAMS: CPT CODE: [id number] US PELVIS COMPLETE 03840 CLINICAL HISTORY: Right lower quadrant pain. Status [...] Dipesh Miranda RDMS, RVT Probe: Trnscrbd D/ (7365) AtilioS Orig Durga D/T: S: 03/10/2019 (2841) [facility] NAME: LAUREN BETH Radiology Department PHYS: SUE. Hilaria Calderón [address] : 1985 AGE: 33 SEX: F [place], [place] [address] LOC: DayanaraERS PHONE #: [phone] EXAM DATE: 03/10/2019 STATUS: DEP ER FAX #: [phone] RAD NO: [id number] Page 1 Signed Report Patient Name: LAUREN BETH Unit No: [id number] EXAMS: CPT CODE: [id number] US PELVIS COMPLETE 44708 (Continued) [facility] NAME: LAUREN BETH Radiology Department PHYS: GUTRI. Hilaria Calderón [address] : 1985 AGE: 33 SEX: F [place], [place] [address] LOC: ALONDRA PHONE #: [phone] EXAM DATE: 03/10/2019 STATUS: [facility] ER FAX #: [phone] RAD NO: [id number] Page 2 Signed ReportCBC W/AUTO DIFF 2019-03-10 [...] = PLTMR) UA RFLX MICR CULT IF [id number] 16:07:00 Test Item Value Reference Range Interpretation [...] A Indication for culture: Suprapubic PainUR HCG [id number] 16:07:00 Test Item Value Reference Range Interpretation [...] culture: Suprapubic PainUA RFLX MICR CULT IF [id number] 16:04:00 Test Item Value Reference Range Interpretation [...] EPIU) Indication for culture: Suprapubic PainUR HCG [id number] 16:04:00 Test Item Value Reference Range Interpretation [...] culture: Suprapubic PainUA RFLX MICR CULT IF [id number] 15:55:00 Test Item Value Reference Range Interpretation [...] RARE-FEW Indication for culture: Suprapubic PainUR HCG [id number] 15:55:00 Test Item Value Reference Range Interpretation [...] and tested. Indication for culture: Suprapubic PainED2 [id number] 01:18:00 Test Item Value Reference Range Interpretation [...] code = MPV) 6.9 fL 8.0-11.0 A [facility]ED[facility] URINE [id number] 00:55:00 Test Item Value Reference Range Interpretation Comments Color (test code = UCOLR) Yellow Lt. Yellow A Clarity (test code = UCLAR) Clear Glucose (test code = UGLUC) NEGATIVE NEGATIVE N Bilirubin (test code = UBILI) NEGATIVE NEGATIVE N Ketones (test code = UKET) NEGATIVE NEGATIVE N Specific Hilbert (test code = USPGR) 1.030 1.005-1.030 A Blood (test code = UBLD) NEGATIVE NEGATIVE N PH (test code = UPH) 6.0 4.5-8.0 A Protein (test code = UPROT) Trace NEGATIVE A Urobilinogen (test code = U UROB) 0.2 >0.2 N Nitrite (test code = UNITR) NEGATIVE NEGATIVE N Leukocyte Esterase (test code = NEGATIVE NEGATIVE N ULEUK) [facility]-fkinED2 , [id number] 00:54:00 Test Item Value Reference Range Interpretation Comments (Urine) (test code = Negative PREGU) [facility] ClinicsDtwjgt-AbblnvIRXVVL1412-03-10 13:07:00 Test Item Value Reference Range Interpretation Comments Lipase (test code = LIPA) 106 U/L 73-[address] [facility] ABDOMEN/PELVIS W/[id number] 12:24:12Procedures: ED2 CT ABDOMEN/PELVIS W/CONTRASTExam Date: 02/07/2019 10:11 AMOrdering Physician: WYATT SOTOMAYORClinical Indication: [id number]: Epigastric painComparison: CT abdomen/pelvis, 01/27/19TECHNIQUE: Spiral multislice [...] MD02/07/2019 12:17 PMDictated By: ELMER PHAMDate: 02/07/2019 12:17C [address]2019-08-10 10:48:00 Test Item Value Reference Range [...] (test code = TP) 7.6 gm/dl 6.4-8.[address] [facility]-[place]kinED2 URINE [id number] 10:45:00 Test Item Value Reference Range Interpretation Comments Color (test code = UCOLR) Yellow Lt. Yellow A Clarity (test code = UCLAR) Sl Cloudy Glucose (test code = UGLUC) NEGATIVE NEGATIVE N Bilirubin (test code = UBILI) NEGATIVE NEGATIVE N Ketones (test code = UKET) NEGATIVE NEGATIVE N Specific Hilbert (test code = 1.025 1.005-1.030 A USPGR) Blood (test code = UBLD) NEGATIVE NEGATIVE N PH (test code = UPH) 5.5 4.5-8.0 A Protein (test code = UPROT) NEGATIVE NEGATIVE N Urobilinogen (test code = U UROB) 0.2 >0.2 N Nitrite (test code = UNITR) NEGATIVE NEGATIVE N Leukocyte Esterase (test code = NEGATIVE NEGATIVE N ULEUK) [place] [address] , [id number] 10:45:00 Test Item Value Reference Range Interpretation Comments (Urine) (test code = Negative PREGU) [place] [address] [id number] 10:44:00 Test Item Value Reference Range Interpretation [...] code = MPV) 6.8 fL 8.0-11.[address] [facility]-[place]CT ABDOMEN/PELVIS W/[id number] 12:29:19s/p hysterectomy; rlq painProcedure: CT ABDOMEN/PELVIS W/CONTRASTOrder Date: 01/27/2019 10:57 AMOrdering Provider: DR LEXUS CASTREJON ACOSTAClinical Indication: [id number]: Abdominal painComparison: September 30, 2018TECHNIQUE:The abd omen and pelvis were scanned utilizing a multidetector helical scannerfrom the diaphragm to the lesser trochanter . Low osmolar IV contrast wasgiven. Coronal and sagittal reformations were obtained.This exam was performed according to the our departmental dose-optimizationprogram which includes automated exposure control, adjustment of the mA and/orkV according to patient size and/or use of iterativereconstruction techniques.DISCUSSION:LOWER THORAX: Normal.HEPATOBILIARY: Mild diffuse hepatic steatosis is present. The gallbladder issurgically absent.SPLEEN: No splenomegaly.PANCREAS: No focal massesor ductal dilatation.ADRENALS: No adrenal nodules.KIDNEYS/URETERS: No hydronephrosis, stones, or solid mass lesions.PELVIC ORGANS/BLADDER: Uterus is surgically absent. Bilobed appearing ovariancyst measuring maximally up to 5 cm in the right adnexal region is present andis stable. Previous ultrasound from 08/09/2018 demonstrate the presence of 2separate simple cysts. No discrete fluid collection is seen in the hysterectomybed.PERITONEUM / RETROPERITONEUM: No free [...] BENITEZKDate: 01/27/2019 12:23[facility] WITH [id number] 12:10:00 Test Item Value Reference Range Interpretation Comments Color (test code = UCOLR) YELLOW Clarity (test code = UCLAR) CLEAR Glucose (test code = UGLUC) NEGATIVE NEGATIVE N Bilirubin (test code = UBILI) NEGATIVE NEGATIVE N Ketones (test code = UKET) NEGATIVE NEGATIVE N Specific Hilbert (test code = USPGR) <=1.005 1.005-1.030 A [...] = UBACT) Trace None Seen,Trace N [facility]icsEpmlhd-[id number] 11:49:00 Test Item Value Reference Range Interpretation Comments Lipase (test code = LIPA) 91 U/L 73-393 [facility], [id number] 11:49:00 Test Item Value Reference Range Interpretation Comments Amylase (test code = AMYL) 45 U/L 25-115 [facility] [place] [facility] CHEM [id number] 11:25:00 Test Item Value Reference Range Interpretation [...] = CREA) 0.5 mg/dl 0.6-1.3 L [facility] [place] [facility] CBC WITH AUTO [id number] 11:23:00 Test Item Value Reference Range Interpretation [...] code = IG%) 0.6 % 0.0-0.4 H [facility] PELVIS [id number] 07:55:25h/o complex right ovarian cystsProcedure: Pelvic ultrasound.CLINICAL [...] 12/07/20187:49 AMDictated By:WILEY VELÁZQUEZDate: 12/07/2018 07:49[facility] [id number] 03:11:00 Test Item Value Reference Range Interpretation Comments Lipase (test code = LIPA) 136 U/L 73-393 [facility] CenterHEP[facility] FUNCTION PANEL (LIVER)2018-12-07 03:10:00 Test Item [...] code = 0.1 mg/dl 0.0-1.1 IBIL) [facility] [place] [facility] CHEM [id number] 02:41:00 Test Item Value Reference Range Interpretation [...] = CREA) 0.5 mg/dl 0.6-1.3 L [facility] [place] [facility] CBC WITH AUTO [id number] 02:39:00 Test Item Value Reference Range Interpretation [...] = IG%) 0.5 % 0.0-0.[address] [facility] WITH [id number] 02:37:00 Test Item Value Reference Range Interpretation Comments Color (test code = UCOLR) YELLOW Clarity (test code = UCLAR) CLEAR Glucose (test code = UGLUC) 500 NEGATIVE A Bilirubin (test code = UBILI) NEGATIVE NEGATIVE N Ketones (test code = UKET) TRACE NEGATIVE A Specific Hilbert (test code = USPGR) >=1.030 1.005-1.030 A [...] = UBACT) 2+ None Seen,Trace A [facility]-[place]ULTURE, [id number] 07:39:00CULTURE RIGHT ABDOMEN WOUND CARE DEPTSpecimen: AbdomenCollected: [...] Sc (+/-) Negative - ICR (+/-) Negative -[facility]-fkinXR CHEST AP/PA 1 [id number] 05:15:17Procedure: XR CHEST AP/PA 1 VIEWOrder Date: 09/30/2018 8:28 PMOrdering Provider: DIMAS Haskinsinical Indication: [id number]: Acute chest painComparison: May 13, 2017Findings:Cardiac size is magnified by technique.Pulmonary vasculature is normal.Mediastinal contour is normal.Aortic contour is normal.There is no consolidation or effusion.There is no evidence of active tuberculosis.There is no mass or pneumothorax.There is no skeletal abnormality.Impression: Negative AP portable chest x-ray.This final report was electronically signed by Dr Farzad Dewitt MD 10/01/20185:08 AMDictated By: FARZAD DEWITTDate: 10/01/2018 05:08 [facility]PELVIS W/O [id number] 00:42:26NPO 4 hours. Do not withhold medsEXAM:CT [...] CDT.Dictated By: REHAN AZARDate: 10/01/2018 00:42[id number] 21:37:00 Test Item Value Reference Range Interpretation Comments Lipase (test code = LIPA) 82 U/L 73-393 [facility] CenterHEPAT[facility] FUNCTION PANEL (LIVER)2018-09-30 21:37:00 Test Item [...] (test code = 0.5 mg/dl 0.0-1.1 IBIL) [facility] [place] [facility] CHEM [id number] 21:10:00 Test Item Value Reference Range Interpretation [...] = CREA) 0.5 mg/dl 0.6-1.3 L [facility] [place] [facility] CBC WITH AUTO [id number] 21:09:00 Test Item Value Reference Range Interpretation [...] code = IG%) 0.3 % 0.0-0.[address] [facility]-[place] W/WO TUBE,[id number] 12:44:00 RUN DATE: 09/04/18 [facility] PAGE 1 RUN TIME: 1454 Specimen Inquiry RUN USER: INTERFACE --PATIENT: LAUREN BETH Zoltan LOC: [facility] #: [id number] AGE/SX: 33/F ROOM: [facility] RE09/02/18REG DR: Elmer Flores : 87 BED: A DIS: 09/03/18 STATUS: DIS Coty TLOC: SPEC #: [id number] RECD: 09/02/18 STATUS: SOUJanel REQ #: [id number] MELISSA: 09/02/18- SUBM DR: Elmer Flores IIIENTERED: 09/03/18 SP TYPE: MUSA PELAYO DR: ORDERED: LEVEL IV CODES: [id number] - OVARY, NOS PROCEDURES: LEVEL IV (Incomplete) TISSUES: OVARY, NOS - RIGHT OVARIAN CYST CLINICAL HISTORY 33 year old, acute pelvic pain (wpd) FINAL DIAGNOSIS Right ovarian cyst, excision: - benign simple cyst of ovary Tissue code 1 CPT code(s): 57585 [facility] 09/04/18 GROSS DESCRIPTION ANATOMIC SOURCE OF TISSUE (per Requisition): Right ovarian cyst The specimen is received in a formalin-filled container, labeled with the patient's name and designated "right ovarian cyst". The specimen consists of a 4.0 x 2.0 x 1.5 cm disrupted unilocular cystic structure. The outer surface is pink-white, hyperemic and smooth. The cystlining is lr-pink and trabeculated. There are no identifiable excrescences. The cut surfaces of thecyst wall displays a thin rim of ovarian stroma with multiple yellow-orange, centrally hemorrhagic corpora lutea. Transitional Nurse sections are submitted as A and B. [...] NORMAL NORMAL code = PLTMR) CHEMISTRY 7 [id number] 14:15:00 Test Item Value Reference Range Interpretation [...] CA) 9.2 mg/dL 8.4-10.2 N CBC W/AUTO [id number] 13:42:00 Test Item Value Reference Range Interpretation [...] NORMAL NORMAL code = PLTMR) US INTRAVAGINAL [id number] 12:35:09Procedure: Pelvic ultrasound.CLINICAL INDICATION: Pelvic pain. Status [...] PMDictated By: WILEY VELÁZQUEZDate: 09/01/2018 12:28[facility] CBC WITH AUTO [id number] 11:31:00 Test Item Value Reference Range Interpretation [...] RS88 71 on 09/01/2018 11:31 ONLY AVAILABLE [address] [place] [address]-[place]CT ABDOMEN/PELVIS W/O [id number] 11:11:01MLP CProcedure: CT ABDOMEN/PELVIS W/O CONTRASTOrder Date: 09/01/2018 9:28 AMOrdering Provider: CHIN Guilleninical Indication: [id number]: Abdominal pain. Left lower quadrant painComparison: 12/24/2017TECHNIQUE:CT [...] MD 09/01/201811:04 AMDictated By: GLORY BENITEZKDate: 09/01/2018 11:04[facility] CHEM [id number] 10:26:00 Test Item Value Reference Range Interpretation [...] CREA) 0.4 mg/dl 0.6-1.3 L ONLY AVAILABLE [address] [place], [place] [address]kinSWR[facility] WITHOUT [id number] 09:59:00 Test Item Value Reference Range Interpretation Comments Color (test code = UCOLR) Yellow Lt. Yellow A Clarity (test code = UCLAR) Clear Glucose (test code = UGLUC) NEGATIVE Negative A Bilirubin (test code = UBILI) NEGATIVE Negative A Ketones (test code = UKET) NEGATIVE Negative A Specific Hilbert (test code = USPGR) 1.015 1.005-1.030 A Blood (test code = UBLD) NEGATIVE Negative A PH (test code = UPH) 7.0 4.5-8.0 A Protein (test code = UPROT) NEGATIVE Negative A Urobilinogen (test code = U UROB) 0.2 >0.2 N Nitrite (test code = UNITR) NEGATIVE Negative A Leukocyte Esterase (test code = NEGATIVE Negative A ULEUK) ONLY AVAILABLE [address] [place] [address]-[place]US INTRAVAGINAL PELVIS 2018-05-13 13:26:23Procedure: Pelvic ultrasound.CLINICAL INDICATION: [...] PMDictated By: WILEY VELÁZQUEZDate: 05/13/2018 13:20[facility] CBC WITH AUTO [id number] 12:22:00 Test Item Value Reference Range Interpretation [...] (test code = 0.2 % 0.0-0.4 IG%) [facility] [place] [place] [facility] CBC WITH AUTO [id number] 11:54:00 Test Item Value Reference Range Interpretation [...] 0.5 % 0.0-0.4 H IG%) ONLY AVAILABLE [address] [place] [address] LAB URINALYSIS WITHOUT [id number] 11:25:00 Test Item Value Reference Range Interpretation Comments Color (test code = UCOLR) Yellow Lt. Yellow A Clarity (test code = UCLAR) Clear Glucose (test code = UGLUC) NEGATIVE Negative A Bilirubin (test code = UBILI) NEGATIVE Negative A Ketones (test code = UKET) NEGATIVE Negative A Specific Hilbert (test code = USPGR) 1.020 1.005-1.030 A Blood (test code = UBLD) NEGATIVE Negative A PH (test code = UPH) 7.0 4.5-8.0 A Protein (test code = UPROT) NEGATIVE Negative A Urobilinogen (test code = U UROB) 0.2 >0.2 N Nitrite (test code = UNITR) NEGATIVE Negative A Leukocyte Esterase (test code = NEGATIVE Negative A ULEUK) ONLY AVAILABLE [address] [place] [address] LAB , URINE 2018-05-13 11:25:00 Test Item Value Reference Range Interpretation Comments (Urine) (test code = Negative PREGU) ONLY AVAILABLE [address] [place] [address] LAB CHEM [id number] 11:23:00 Test Item Value Reference Range Interpretation [...] CREA) 0.5 mg/dl 0.6-1.3 L ONLY AVAILABLE [address] [place] [address]-[facility]US INTRAVAGINAL PELVIS 2017-12-24 12:50:53Procedure: Pelvic ultrasound.CLINICAL INDICATION: [...] PMDictated By: WILEY VELÁZQUEZDate: 12/24/2017 12:50[facility] [place]INGERURINALYSIS WITH [id number] 10:22:00 Test Item Value Reference Range Interpretation Comments Color (test code = UCOLR) Yellow Clarity (test code = UCLAR) Clear Glucose (test code = UGLUC) NEGATIVE NEGATIVE N Bilirubin (test code = UBILI) NEGATIVE NEGATIVE N Ketones (test code = UKET) NEGATIVE NEGATIVE N Specific Hilbert (test code = USPGR) 1.025 1.005-1.030 A [...] = UBACT) Trace None Seen,Trace N [facility]-LufkinLIPASE, [id number] 10:05:00 Test Item Value Reference Range Interpretation Comments Lipase (test code = LIPA) 40 U/L 8-[address] [facility]-[id number] 10:05:00 Test Item Value Reference Range Interpretation [...] and management of c hronic kidney failure. [facility]-[place]ufkinCT ABD/ PELVIS W/O CON (RENAL STONE)2017-12-24 09:38:31Procedure: [...] MD 12/24/20179:32 AMDictated By: WILEY VELÁZQUEZDate: 12/24/2017 09:38[facility] WITH AUTO DIFF 2017-12-24 09:26:00 Test Item [...] on 3:19 AMCDT.Dictated By: MARVIN DOBBSDate: 06/21/2017 03:20[facility]BERGURINALYS WITH [id number] 03:20:00 Test Item Value Reference Range Interpretation Comments Color (test code = UCOLR) YELLOW Clarity (test code = UCLAR) CLEAR Glucose (test code = UGLUC) NEGATIVE NEGATIVE N Bilirubin (test code = UBILI) NEGATIVE NEGATIVE N Ketones (test code = UKET) NEGATIVE NEGATIVE N Specific Hilbert (test code = 1.020 1.005-1.030 A USPGR) [...] UBACT) None Seen None Seen,Trace N er [address] [place] [address]-[id number] 03:07:00 Test Item Value Reference Range Interpretation [...] and management of c hronic kidney failure. [address]-fkinLIPASE, [id number] 03:07:00 Test Item Value Reference Range Interpretation Comments Lipase (test code = LIPA) 61 U/L 8-[address] [place] [address]-fkinCBC WITH AUTO [id number] 03:05:00 Test Item Value Reference Range Interpretation [...] code = 0.4 % 0.0-0.4 IG%) er [address] [place] [address]-[place]ufkinXR CHEST 2 PA [id number] 19:56:04 Procedure: XR CHEST 2 PA LATERALExam date: 05/13/2017 3:53 PMOrdering Provider: DR ASA BLOOMClinical Indication: fatigue, Chest painComparison: March 15, 2016Findings:Cardiomediastinal silhouette is within normal limits.The lungs are clear.No pleural effusion or pneumothorax. Osseous structures are nonacute.No evidence of active tuberculosis.Impression:No acute cardiopulmonary process.This final report was electronically signed by Dr Wiley Velázquez MD 05/13/20177:49 PMDictated By: WILEY VELÁZQUEZDate: 05/13/2017 19:55[id number] 16:53:00 Test Item Value Reference Range Interpretation [...] and management of c hronic kidney failure. [facility]2017-05-13 16:32:00 Test Item Value [...] BE NOTED ON THE RE PORT. [facility]-[place]kinURINALYSIS WITH [id number] 18:25:00 Test Item Value Reference Range Interpretation Comments Color (test code = UCOLR) YELLOW Clarity (test code = UCLAR) CLEAR Glucose (test code = UGLUC) NEGATIVE NEGATIVE N Bilirubin (test code = UBILI) NEGATIVE NEGATIVE N Ketones (test code = UKET) NEGATIVE NEGATIVE N Specific Hilbert (test code = 1.025 1.005-1.030 A USPGR) [...] UR MISC) None Seen None Seen N [facility]kinHEPATIC FUN[facility] PANEL (LIVER)2016-10-09 18:21:00 Test Item [...] code = 0.1 mg/dl 0.0-1.1 IBIL) [facility]-[id number] 18:21:00 Test Item Value Reference Range Interpretation [...] and management of c hronic kidney failure. [facility] WITH AUTO [id number] 18:04:00 Test Item Value Reference Range Interpretation [...] (test code = 0 NRBC_AUTO) AUTO [facility] [place]
[2022-07-09 22:43] LABS: Urine Blood Trace-intact (Negative); Urine Glucose 1+ (Negative); Urine Protein Negative (Negative)
[2022-07-09] MEDS ORDERED: FENTANYL CITR 100 MCG/2 ML ONE ×3 (22:50→23:39)
[2022-07-09] MEDS ORDERED: FAMOTIDINE 20 MG/2 ML VIAL IV ONE (22:51)
[2022-07-09] MEDS ORDERED: ONDANSETRON 4 MG/2 ML VIAL ONE ×2 (22:51→23:44)
[2022-07-09] MEDS ORDERED: NA CHLORIDE 0.9% 1,000 ML ONE (22:51)
[2022-07-09 22:58] LABS: Absolute Lymphocytes (CBC) 1.9 K/uL (0.7-4.9); Hematocrit 34.3 % (36.0-45.0); Lymphocytes % 29.8 % (15.3-44.8); RBC Red Blood Cell Count 3.85 M/uL (3.86-4.86)
[2022-07-09 23:13] LABS: Calcium Oxalate Crystals- Ur Few /HPF (None Seen); Urine Bacteria <20 /HPF (<20); Urine Mucus Slight /HPF (None Seen)
[2022-07-09 23:14] LABS: Albumin 2.8 g/dL (3.4-5.0); Bilirubin Total 0.1 mg/dL (0.2-1.0); Potassium 3.2 mmol/L (3.5-5.1); Protein, Total 6.1 g/dL (6.4-8.2)
--- NOTE | 2022-07-10 00:43 | ER ---
[facility]: Hong Pace Age: 36 yrs Sex: Female : 1985 Arrival Date: 07/09/2022 Time: 21:03 Bed 3 Private MD: Diagnosis: Abdominal pain, unspecified Presentation: 07/09 21:15 Chief complaint: Patient states: "I have had a lot of abdominal surgeries, I am suppose tw5 to have surgery next week to remove more scar tissue for my endometriosis, but the pain just got to bad today.". Coronavirus screen: Vaccine status: Patient reports being unvaccinated. Ebola Screen: Patient negative for fever greater than or equal to 101.5 degrees Fahrenheit, and additional compatible Ebola Virus Disease symptoms Patient denies exposure to infectious person. Patient denies travel to an Ebola-affected area in the 21 days before illness onset. Initial Sepsis Screen: Does the patient meet any 2 criteria? HR > 90 bpm. Does the patient have a suspected source of infection? Yes: Acute abdominal pain. Risk Assessment: Do you want to hurt yourself or someone else? Patient reports no desire to harm self or others. Onset of symptoms was July 09, 2022. 21:15 Method Of Arrival: Ambulatory tw5 21:15 Acuity: [place] 3 tw5 Triage Assessment: 21:17 General: Appears uncomfortable, Behavior is calm, cooperative, appropriate for age. tw5 Pain: Pain currently is 9 out of 10 on a pain scale. GI: Reports lower abdominal pain, cramping. 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 - Social history:: Smoking status: Patient reports the use of cigarette tobacco products, denies chronic smoking, but will smoke occasionally. Screenin:40 [facility] ED Fall Risk Assessment (Adult) Score/Fall Risk Level 0 - 2 = Low Risk. Abuse as6 screen: Denies threats or abuse. Denies injuries from another. Nutritional screening: No deficits noted. Tuberculosis screening: No symptoms or risk factors identified. Assessment: 07/10 00:30 General: "I want to go home. I just came here for pain control. I don't care what my as6 results are" . Vital Signs: 07/09 21:15 BP 138 / 99; Pulse 122; Resp 20; Temp 97.3; Pulse Ox 96% on R/A; Weight 111.13 kg; tw5 Height 5 ft. 4 in. (162.56 cm); Pain 9/10; 22:58 BP 130 / 96; Pulse 90; Resp 17; Pulse Ox 99% ; j07/10 00:00 BP 123 / 77; Pulse 80; Resp 18 S; Pulse Ox 99% on R/A; as6 07/09 21:15 Body Mass Index 42.05 (111.13 kg, 162.56 cm) tw5 ED Course: 07/09 21:03 Patient arrived in ED. ja2 21:13 Cole Abbott PA is PHCP. cp 21:13 Aleks Solis MD is Attending Physician. cp 21:17 Triage completed. tw5 21:17 Arm band placed on. tw5 21:30 Uday Smith, [place] is Primary Nurse. as6 22:32 Inserted saline lock: 22 gauge in right hand, using aseptic technique. mw1 23:40 Placed in gown. Bed in low position. Call light in reach. Side rails up X 1. as6 07/10 00:25 XRAY Abdomen With Erect In Process Unspecified. EDMS 00:50 No provider procedures requiring assistance completed. IV discontinued, intact, as6 bleeding controlled, No redness/swelling at site. Pressure dressing applied. Administered Medications: 07/09 22:57 Drug: Zofran (Ondansetron) 4 mg Route: IVP; Site: right hand; 07/10 00:49 Follow up: Response: No adverse reaction as07/09 22:57 Drug: fentaNYL (PF) 25 mcg Route: IVP; Site: right hand; 07/10 00:50 Follow up: Response: No adverse reaction as07/09 22:58 Drug: NS 0.9% 1000 ml Route: IV; Rate: 1 bolus; Site: right hand; 07/10 00:50 Follow up: Response: No adverse reaction; IV Status: Completed infusion; IV Intake: as6 1000ml 07/09 22:58 Drug: Pepcid (famotidine) 20 mg Route: IVP; Site: right hand; j07/10 00:49 Follow up: Response: No adverse reaction as6 07/09 23:36 Drug: fentaNYL (PF) 25 mcg Route: IVP; Site: right hand; 07/10 00:50 Follow up: Response: No adverse reaction as6 07/09 23:46 Drug: Zofran (Ondansetron) 4 mg Route: IVP; Site: right hand; j07/10 00:50 Follow up: Response: No adverse reaction as6 00:04 Drug: fentaNYL (PF) 25 mcg Route: IVP; Site: right hand; as6 00:50 Follow up: Response: No adverse reaction as6 Medication: 07/09 23:40 VIS not applicable for this client. as6 Intake: 07/10 00:50 IV: 1000ml; Total: 1000ml. as6 Outcome: 00:42 Discharge ordered by . raymond 00:51 Discharged to home ambulatory. as6 00:51 Condition: stable 00:51 Discharge instructions given to patient, Instructed on discharge instructions, follow up and referral plans. medication usage, Demonstrated understanding of instructions, follow-up care, medications, Prescriptions given X 2. 00:51 Patient left the ED. as6 Signatures: Dispatcher [employer] EDMS Cole Abbott PA PA cp Waits, Michael mw1 Leslie Estevez Tiffany tw5 Uday Smith RN RN as6 Nohemy Macias RN RN [id number]
--- NOTE | 2022-07-10 00:43 | EDPHYS ---
Physician Documentation [facility] Name: Hong Pace Age: 36 yrs Sex: Female : 1985 Arrival Date: 07/09/2022 Time: 21:03 Bed 3 Private MD: ED Physician Aleks Solis HPI: 07/09 22:00 This 36 yrs old Female presents to ER via Ambulatory with complaints of Abdominal Pain. cp 22:00 The patient presents with abdominal pain in the lower abdomen. Onset: The cp symptoms/episode began/occurred gradually, and became worse today. The symptoms do not radiate. 22:00 Associated signs and symptoms: Pertinent positives: constipation, Pertinent negatives: cp diarrhea, dysuria, fever, vaginal discharge, vomiting, vaginal bleeding. The symptoms are described as constant. Severity of pain: in the emergency department the pain is unchanged despite home interventions. 22:00 The patient has experienced similar episodes in the past, multiple times. 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 - Social history:: Smoking status: Patient reports the use of cigarette tobacco products, denies chronic smoking, but will smoke occasionally. ROS: 22:05 Constitutional: Negative for body aches, chills, fever, poor PO intake. cp 22:05 Eyes: Negative for injury, pain, redness, and discharge. cp 22:05 ENT: Negative for drainage from ear(s), ear pain, sore throat, difficulty swallowing, difficulty handling secretions. 22:05 Cardiovascular: Negative for chest pain, palpitations. 22:05 Respiratory: Negative for cough, shortness of breath, wheezing. 22:05 Abdomen/GI: Positive for abdominal pain, Negative for vomiting, diarrhea, constipation, black/tarry stool, rectal bleeding. 22:05 Neuro: Negative for altered mental status, dizziness, headache, syncope, weakness. 22:05 All other systems are negative. Exam: 22:10 Head/Face: Normocephalic, atraumatic. cp 22:10 Constitutional: The patient appears in no acute distress, alert, awake, non-diaphoretic, non-toxic, well developed, well nourished, obese, in obvious pain. 22:10 Eyes: Periorbital structures: appear normal, Conjunctiva: normal, no exudate, no injection, Sclera: no appreciated abnormality, Lids and lashes: appear normal, bilaterally. 22:10 ENT: External ear(s): are unremarkable, Nose: is normal, Mouth: Lips: moist, Oral mucosa: pink and intact, moist, Posterior pharynx: Airway: no evidence of obstruction, patent. 22:10 Chest/axilla: Inspection: normal. 22:10 Cardiovascular: Rate: tachycardic, Rhythm: regular, Edema: is not appreciated, JVD: is not appreciated. 22:10 Respiratory: the patient does not display signs of respiratory distress, Respirations: normal, no use of accessory muscles, no retractions, labored breathing, is not present, Breath sounds: are clear throughout, no decreased breath sounds, no stridor, no wheezing. 22:10 Abdomen/GI: Inspection: abdomen appears normal, Bowel sounds: active, all quadrants, Palpation: soft, in all quadrants, severe abdominal tenderness, in the right lower quadrant and left lower quadrant, rebound tenderness, is not appreciated, voluntary guarding, is elicited in the right lower quadrant and left lower quadrant. 22:10 Back: CVA tenderness, is absent. 22:10 Skin: cellulitis, is not appreciated, no rash present. Vital Signs: 21:15 BP 138 / 99; Pulse 122; Resp 20; Temp 97.3; Pulse Ox 96% on R/A; Weight 111.13 kg; tw5 Height 5 ft. 4 in. (162.56 cm); Pain 9/10; 22:58 BP 130 / 96; Pulse 90; Resp 17; Pulse Ox 99% ; jj7 07/10 00:00 BP 123 / 77; Pulse 80; Resp 18 S; Pulse Ox 99% on R/A; as6 07/09 21:15 Body Mass Index 42.05 (111.13 kg, 162.56 cm) tw5 MDM: 07/09 21:35 Patient medically screened. cp 22:00 Differential diagnosis: bowel obstruction, Endometriosis, non-specific abd pain, cp Ureterolithiasis, urinary tract infection, drug seeking behavior. 07/10 00:41 Data reviewed: vital signs, nurses notes, lab test result(s), radiologic studies, plain cp films. 00:41 Independent interpretation of the following test(s) in the Emergency Department X-Ray: cp My interpretation is no bowel obstruction. Test considered but Not performed: Other Details CT of abdomen/pelvis but patient seen here in this ED on multiple occasions for similar complaints and has had multiple CTs in the past. Special discussion: Based on the patient's Hx, exam, and Dx evaluation, there is no indication for emergent surgery or inpatient Tx. It is understood by the patient/guardian that if the Sx's persist or worsen they need to return immediately for re-evaluation. ED course: VSS. Pain improved with meds. Will discharge to home for continued monitoring. 07/09 21:47 Order name: CBC with Diff; Complete Time: 23:23 cp 07/09 23:23 Interpretation: Normal except: RBC 3.85; HGB 11.5; HCT 34.3; RDW 15.4; MPV 7.0. cp 07/09 21:47 Order name: CMP; Complete Time: 23:23 cp 07/09 21:47 Order name: Lipase; Complete Time: 23:23 cp 07/09 21:47 Order name: Urine Microscopic Only; Complete Time: 23:23 cp 07/09 22:43 Order name: Urine Dipstick-Ancillary; Complete Time: 22:56 EDMS 07/09 22:56 Interpretation: Normal except: UGLUC 1+; UBLD Trace-intact. cp 07/09 23:24 Order name: XRAY Abdomen With Erect cp 07/09 21:47 Order name: IV Saline Lock; Complete Time: 22:54 cp 07/09 21:47 Order name: Labs collected and sent; Complete Time: 22:54 cp 07/09 21:47 Order name: Urine Dipstick-Ancillary (obtain specimen); Complete Time: 22:54 cp 07/09 21:47 Order name: Urine Test (obtain specimen); Complete Time: 22:54 cp Administered Medications: 07/09 22:57 Drug: Zofran (Ondansetron) 4 mg Route: IVP; Site: right hand; jj7 07/10 00:49 Follow up: Response: No adverse reaction as6 07/09 22:57 Drug: fentaNYL (PF) 25 mcg Route: IVP; Site: right hand; 07/10 00:50 Follow up: Response: No adverse reaction 07/09 22:58 Drug: NS 0.9% 1000 ml Route: IV; Rate: 1 bolus; Site: right hand; 07/10 00:50 Follow up: Response: No adverse reaction; IV Status: Completed infusion; IV Intake: as6 1000ml 07/09 22:58 Drug: Pepcid (famotidine) 20 mg Route: IVP; Site: right hand; 07/10 00:49 Follow up: Response: No adverse reaction 07/09 23:36 Drug: fentaNYL (PF) 25 mcg Route: IVP; Site: right hand; 07/10 00:50 Follow up: Response: No adverse reaction 07/09 23:46 Drug: Zofran (Ondansetron) 4 mg Route: IVP; Site: right hand; 07/10 00:50 Follow up: Response: No adverse reaction as6 00:04 Drug: fentaNYL (PF) 25 mcg Route: IVP; Site: right hand; as 00:50 Follow up: Response: No adverse reaction as6 Disposition Summary: 07/10/22 00:42 Discharge Ordered Location: Home cp Problem: new cp Symptoms: have improved cp Condition: Stable cp Diagnosis - Abdominal pain, unspecified cp Followup: cp - With: Private Physician - When: 1 - 2 days - Reason: Recheck today's complaints Discharge Instructions: - Discharge Summary Sheet cp - Abdominal Pain, Adult cp Forms: - Medication Reconciliation Form cp - Thank You Letter cp - Antibiotic Education cp - Prescription Opioid Use cp Prescriptions: - Zofran 4 mg Oral Tablet - take 1 tablet by ORAL route every 12 hours As needed; 20 tablet; Refills: 0, cp Product Selection Permitted - dicyclomine 20 mg Oral Tablet - take 1 tablet by ORAL route 4 times per day; 20 tablet; Refills: 0, Product cp Selection Permitted Addendum: 07/11/2022 06:06 Co-signature as Attending Physician, Aleks Solis MD I reviewed the patient's care r t provided by the Advanced Practice Provider and agree with the diagnosis and treatment plan. Signatures: Dispatcher [employer] EDPA Cole Abbott PA PA cp Edith Myers tw5 Uday Smith RN RN as6 Nohemy Macias RN RN jj7 Aleks Solis MD MD rt Corrections: (The following items were deleted from the chart) :07/10 22:10 Constitutional: The patient appears in no acute distress, alert, awake, cp non-diaphoretic, non-toxic, well developed, well nourished, obese, in obvious pain, cp 07/11 99:44 07/10 22:10 Head/Face: Normocephalic, atraumatic. cp cp 07/11 99:44 07/10 22:10 Eyes: Periorbital structures: appear normal, Conjunctiva: normal, no cp exudate, no injection, Sclera: no appreciated abnormality, Lids and lashes: appear normal, bilaterally, cp 07/11 99:44 07/10 22:10 ENT: External ear(s): are unremarkable, Nose: is normal, Mouth: Lips: cp moist, Oral mucosa: pink and intact, moist, Posterior pharynx: Airway: no evidence of obstruction, patent, cp 07/11 99:44 07/10 22:10 Chest/axilla: Inspection: normal, cp cp 07/11 99:44 07/10 22:10 Cardiovascular: Rate: tachycardic, Rhythm: regular, Edema: is not cp appreciated, JVD: is not appreciated, cp 07/11 99:44 07/10 22:10 Respiratory: the patient does not display signs of respiratory distress, cp Respirations: normal, no use of accessory muscles, no retractions, labored breathing, is not present, Breath sounds: are clear throughout, no decreased breath sounds, no stridor, no wheezing, cp 07/11 99:44 07/10 22:10 Abdomen/GI: Inspection: abdomen appears normal, Bowel sounds: active, all cp quadrants, Palpation: soft, in all quadrants, severe abdominal tenderness, in the right lower quadrant and left lower quadrant, rebound tenderness, is not appreciated, voluntary guarding, is elicited in the right lower quadrant and left lower quadrant, cp 07/11 99:44 07/10 22:10 Back: CVA tenderness, is absent, cp cp 07/11 99:44 07/10 22:10 Skin: cellulitis, is not appreciated, no rash present. cp cp
[2022-07-10 00:56] VITALS: TEMP 97.3
[2022-07-10 00:57] VITALS: O2SAT 99
[2022-07-10 00:58] VITALS: BP 123/77
--- NOTE | 2022-07-10 13:47 | RAD REPORT ---
EXAM DESCRIPTION: RAD - Abdomen W Erect - 07/10/2022 12:23 am CLINICAL HISTORY: ABD PAIN TECHNIQUE: Frontal view of the abdomen/pelvis with upright view of the abdomen. COMPARISON: No relevant prior studies available. FINDINGS: Intraperitoneal space: No free air. Gastrointestinal tract: Unremarkable. No dilation. Bones/joints: Unremarkable. Soft tissues: Surgical clips project over the right upper quadrant. Other findings: Suture material projects over the left upper quadrant. IMPRESSION: Nonobstructive bowel gas pattern. Electronically signed by: Arslan Grover MD 07/10/2022 12:51 AM HOSE SEAMER Due to temporary technical issues with the PACS/Fluency reporting system, reports are being signed by the in house radiologists without review as a courtesy to insure prompt reporting. The interpreting radiologist is fully responsible for the content of the report.
== END 2022-07-10 00:51 | disposition home or self-care (01) ==
LOC: ER 21:00
DX: R10.30 Lower abdominal pain, unspecified (principal)
CPT/HCPCS: 36415; 74019; 80053; 81003; 81015; 83690; 85025; 96361; 96374; 96375; 99284; J2405; J3010; J7030

== ENCOUNTER 2022-08-01 23:51 | Emergency (ER) | payer SELFPAY ==
--- OUTSIDE RECORDS SUMMARY | 2022-08-01 23:53 | XMS REPORT | Clinical Summary ---
:1985 Author Organization [facility] MD [facility] Address [address] [place] [address] Care Team Providers Name Role Phone Keila [...] malignant melanoma of skin 10/26/2021 Travel after 08/01/2021 Immunizations Name Administration Dates Next Due Influenza [...] CYST SURGERY 08/29/2018 - Right 09/28/2018 MD EXCISION MAL LESION 09/23/2018 Abdomen/Right Procedure : EXCISION OF TRUNK/ARM/LEG 0.6-1.0 CM MALIGNA NT LESION OF TRUNK, right epi gastric; Surgeon: Nicolasa Valentine MD; Location: [facility] OR; Service: SURG ON C [...] History Relation Name Comments -Breast cancer Mother Ktahy Odell in 2 006 Relation Name Status [...] 10/25/2022 Follow-Up Dermatology Lisbeth Shannon M D [address], [place] [address] (Wo rk) Health Maintenance Due Date Last Done Comments COVID-19 Vaccination (#1) 01/11/1987 Results Not on fileafter 08/01/2021 Advance Directives Code Status Date Activated Date Inactivated Comments Full Code 10/04/2018 8:21 PM 10/08/2018 5:55 PM Code Status Date Activated Date Inactivated Comments Full Code 09/23/2018 1:48 PM 09/23/2018 6:55 PM 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
--- OUTSIDE RECORDS SUMMARY | 2022-08-02 00:06 | XMS REPORT | Continuity of Care Document ---
:[address] [facility] t Address [address] [place] [address] Care Team Providers Name Role Phone Keila Valentine MD Primary Care Physician Josué Arango Attending Clinician Unavailable SANTINO_Ingrid_Truman_ Attending Clinician Unavailable MAGDALENE LUCIA Attending Clinician Unavailable Magdalene Lucia MD Attending Clinician Unknown, Attending Attending Clinician Unavailable RIDGE PAGAN Attending Clinician Unavailable Ridge Pagan MD Attending Clinician Truman Quintero Attending Clinician Unavailable TRICE HARRIS Attending Clinician Unavailable Steven PRESS SHOP SUPERVISOR, Trice Attending Clinician Mohan PRESS SHOP SUPERVISOR, Ameena Attending Clinician AMEENA PRESTON Attending Clinician Unavailable Praveen Blas MD Attending Clinician EKTA BERMUDEZ Attending Clinician Unavailable PATRICK CARRANZA Attending Clinician Unavailable Olga Clements Attending Clinician Unavailable LEANNE HANNAH Attending Clinician Unavailable Leanne De Anda S Attending Clinician Eve Chaves RN Attending Clinician Unavailable Ebsonja PRESS SHOP SUPERVISOR, Patrick Attending Clinician Doctor Unassigned, [place] Attending Clinician Unavailable SETH DYKES Attending Clinician [...] Number Effective Date Expiration Date Abhinav durbin [id number] 1958 00:00:00 MEDI-SHARE C1 [id number] [facility] MEDI-SHARE C1 [id number] [facility] MEDI-SHARE C1 [id number] [facility] [id number] 1958 00:00:00 MEDI-SHARE C1 [id number] [facility] PHCS GENERIC [id number] 2018 00:00:00 Problems Condition Condition Condition Status [...] infection [place] [facility] Encounter Encounter Disease Active Overview: Univers for other for other 3-11 Formattin i ty of preprocedu preprocedu 00:00: g of this [facility] 00 note examinasandra examindiana might be Gian payton different n from the Cancer original. 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 Memoria l (LUF/LI V/SA) Pain in Pain in Problem Active [facility] pelvis pelvis [facility] (LUF/LI V/SA) Anxiety Anxiety Problem Active [facility] (LUF/LI V/SA) [id number] Endometrio Problem Active [facility] No known No known Disease Unive rs active active ity of problems problems [facility] Allergies, Adverse Reactions, Alerts Allergy Allergy Status Severity Reaction(s) Onset Inactive Treating Comm ents Source Name Type Date Date Clinician [place] DA Active [place] rash 2021-07 [facility] [place] [facility] [place] DA Active U rash [facility] 2-07 [place] 00:[facility]: [facility] 00 [facility] l KETOROLA DRUG Active Low Rash 2020-07 Univers C INGREDI 2- ity of 00:00: [place] 00 Medical Branch Ketorola Propensi Active Rash 2020-07 Univer s c ty to 2- ity of adverse 00:00: [place] reaction 00 [facility] Branch ketorola DA Active [place] 2018- [facility] c 9-10 [facility] 00:[facility]: Hosp[facility] 00 l of [place] ketorola DA Active U 2014- [facility] c 9-24 [place] 00:00: d 00 Medical [place] ketorola DA Active U rash 2014- [facility] c 9-24 [place] 00:00: d 00 Medical [place] Ketorola Drug Active Itching 2010- Univers c Allergy 1-19 ity of 00:00: [place] 00 MD [facility] 0 Drug Active Unknown Common allergy [facility] Toradol DA Active Unknown Rash [facility] Memoria l (LUF/LI V/SA) Family History Family Member Diagnosis Comments Start Date Stop Date Source Natural mother -Breast cancer [facility] MD Disla RUST Social History Social Habit Start Date Stop Date Quantity Comments Source History of Tobacco [facility] - Use [facility] ASSERTION [facility] [place] [facility] Exposure to 2022-04-27 2022-05-07 Not sure [facility] SARS-CoV-2 (event) 00:00:00 07:55:00 [facility] Tobacco use and 2021-08-29 2021-08-29 Smokeless Universit y of exposure 00:00:00 00:00:00 tobacco non-user [facility] [place] Alcohol intake 2018-10-04 2018-10-04 Current University of 00:00:00 00:00:00 non-drinker of [facility] (finding) Cigarettes smoked 2018-09-04 2018-09-04 Univers ity of current (pack per 00:00:00 00:00:00 [facility] ) - Reported Cancer Ce nter Cigarette 2018-09-04 2018-09-04 University of pack-years 00:00:00 00:00:00 [facility] Sex Ass[birth year] At [birth year] Universit y of 00:00:00 00:00:00 [facility] Smoking Status Start Date Stop Date Source Tobacco smoking [facility] consumption unknown Never smoked tobacco [facility] [place] [facility] Former Smoker 2020-05-03 00:00:00 2020-05-03 [facility] Medical Ce nter Medications Ordered Filled Start Stop Current Ordering Indication Dosage Frequency Signature Comments Components Source Medication Medication Date Date Medication? Clinician (SIG) Name Name ondansetron 2021-07- No [id number] 8mg Univers (ZOFRAN-ODT -15 06-13 ity of ) 00:45: 23:45 [place] disintegrat 00 :00 Medical ing tablet Branch 8 mg ondansetron 2021-07- No [id number] 8mg 8 mg, Univers (ZOFRAN-ODT -15 06-13 Oral, ity of ) 00:45: 23:45 ONCE, 1 [place] disintegrat 00 :00 dose, On Medi felipa ing tablet Wed Branch 8 mg 06/13/22 at 1845, Routine benzonatate 2021-07 Yes [id number] 200mg Take 2 Univers 100 mg 2-14 capsules ity of capsule 00:00: by mouth [place] 00 every 8 Medical (eight) Branch hours as needed for Cough. ondansetron 2021-07 Yes [id number] 4mg Take 1 Univers 4 mg 2-14 tablet by ity of disintegrat 00:00: mouth [place] ing tablet 00 every 8 Medica l (eight) Branch hours as needed for Nausea and Vomiting (N/V). nirmatrelvi 2021-07 Yes [id number] 3{tbl} Take 3 Univers r-ritonavir 2-14 tablets by it y of (PAXLOVID, 00:00: mouth in [place] as EUA,) 300 00 the Medical mg (150 mg morning Branch x 2)-100 mg and 3 tablet tablets in the evening. ondansetron 2021-07 Yes [id number] 4mg Take 1 Univers 4 mg 2-14 tablet by ity of disintegrat 00:00: mouth [place] ing tablet 00 every 8 Medica l (eight) Branch hours as needed for Nausea and Vomiting (N/V). nirmatrelvi 2021-07 Yes [id number] 3{tbl} Take 3 Univers r-ritonavir 2-14 tablets by it y of (PAXLOVID, 00:00: mouth in [place] as EUA,) 300 00 the Medical mg (150 mg morning Branch x 2)-100 mg and 3 tablet tablets in the evening. promethazin 2021-07 Yes [id number] 5mL Take 5 mL Univers e-dextromet 2-14 by mouth 4 it y of horphan 00:00: (four) [place] 6.25-15 00 times Medical mg/5 mL daily as Branch syrup needed for Cough. nirmatrelvi 2021-07 No [id number] 3{tbl} Take 3 Univers r-ritonavir 2-14 12-14 tablets by i ty of (PAXLOVID, 00:00: 00:00 [place] EUA,) 300 00 :00 the Medical mg (150 mg morning Branch x 2)-100 mg and 3 tablet tablets in the evening. benzonatate 2021-07 No [id number] 200mg Take 2 Univers 100 mg 2-14 [...] n: Perioperat kieran Patient tamsulosin 2021-07 Yes [id number] .4mg Take 1 U nivers 0.4 mg 24 07-07 capsule by ity of hr capsule 00:00: mouth at [place] as 00 bedtime. Medical Branch tamsulosin 2021-07- No [id number] .4mg Take 1 Univers 0.4 mg 24 [...] 1 Medical 10 mg dose, On Branch [facility] 02/19/22 at 1030, JOSE NaCl 0.9% 2021- No 1000mL at 999 Uni vers (NS) bolus 02-19 mL/hr, ity of infusion 15:30: 15:58 1,000 mL, [place] as 1,000 mL 00 :00 IV Medical Infusion, Branch ONCE, 1 dose, On [facility] 02/19/22 at 1030, JOSE morpHINE (4 2021- No 4mg 4 mg, Slow Univers mg/mL) 02-19 IV Push, ity of injection 4 14:45: 15:05 ONCE, 1 [place] mg 00 :00 dose, On Medical [facility] 02/19/22 at 0945, STAT ondansetron 2021- No 4mg 4 mg, Slow Univers (ZOFRAN 02-19 IV Push, ity of (PF)) 14:30: 15:05 ONCE, 1 [place] injection 4 00 :00 dose, On Medi felipa mg [facility] 02/19/22 at 0930, JOSE methylPREDN Yes [id number] Take by Danal d/b/a [employer] [facility] 11-29 mouth ity of (MEDROL, 00:00: SEE-INSTRU [place] TE,) 4 mg 00 CTIONS. Medica l tablets follow Branch package directions methylPREDN 0 Yes [id number] Take by Danal d/b/a [employer] [facility] 11-29 mouth ity of (MEDROL, 00:00: SEE-INSTRU [place] TE,) 4 mg 00 CTIONS. Medica l tablets follow Branch package directions methylPREDN Yes [id number] Take by [place] [facility] ISolone 11-29 mouth ity of (MEDROL, 00:00: SEE-INSTRU [place] TE,) 4 mg 00 CTIONS. Medica l tablets follow Branch package directions methylPREDN 2021- No [id number] Take by [place] [facility] ISolone 11-29 12-14 mouth ity of (MEDROL, 00:00: 00:00 [place]IN[place] TE,) 4 mg 00 :00 CTIONS. Medica l tablets follow Branch package directions amoxicillin 2021- No [id number] 1{tbl} Take 1 Univers -clavulanat 11-29 tablet [...] [place] ORAL) 44 Medical Branch naproxen Yes [id number] 500mg Take 1 U nivers (NAPROSYN) 2-02 tablet by ity of 500 mg 00:00: mouth 2 [place] tablet 00 (two) Medical times Branch daily with meals. naproxen 2021-0 Yes [id number] 500mg Take 1 U nivers (NAPROSYN) 2-02 tablet by ity of 500 mg 00:00: mouth 2 [place] tablet 00 (two) Medical times Branch daily with meals. naproxen 2021-0 Yes [id number] 500mg Take 1 U nivers (NAPROSYN) 2-02 tablet by ity of 500 mg 00:00: mouth 2 [place] tablet 00 (two) Medical times Branch daily with meals. naproxen 2021-0 Yes [id number] 500mg Take 1 U nivers (NAPROSYN) 2-02 tablet by ity of 500 mg 00:00: mouth 2 [place] tablet 00 (two) Medical times Branch daily with meals. naproxen 2021-0 Yes [id number] 500mg Take 1 U nivers (NAPROSYN) 2-02 tablet by ity of 500 mg 00:00: mouth 2 [place] tablet 00 (two) Medical times Branch daily with meals. albuterol 2020-07 Yes [id number] 2{puff} Inhale 2 Univers 90 2-22 Puffs [...] Cough. Indication s: cough albuterol 2020-07 Yes [id number] 2{puff} Inhale 2 Univers 90 2-22 Puffs [...] Cough. Indication s: cough albuterol 2020-07 Yes [id number] 2{puff} Inhale 2 Univers 90 2-22 Puffs [...] Cough. Indication s: cough albuterol 2020-07 Yes [id number] 2{puff} Inhale 2 Univers 90 2-22 Puffs [...] Cough. Indication s: cough albuterol 2020-07 Yes [id number] 2{puff} Inhale 2 Univers 90 2-22 Puffs [...] [place] 00 EVERY DAY Medical IN THE [place] MORNING ON AN EMPTY STOMACH levothyroxi 2020-07 Yes TAKE 1 Univ ers ne 137 mcg 2-16 TABLET BY ity of tablet 00:00: MOUTH EVERY DAY Medical IN THE [place] MORNING ON AN EMPTY STOMACH acetaminoph acetaminoph [...] [facility] 00:[facility]: - [facility] 00 [facility] Premarin Premarin 2018-07 No 1{table QD Premarin 1.25 MG 1.25 MG 0-23 t} 1.25 MG 00:00: 00 estrogens, 2018-07 Yes Take by Univ ers conjugated 0-23 mouth ity of (PREMARIN 00:00: daily. [place] ORAL) 00 MD Gian payton [facility] estrogens, 2018-07 Yes Take by Univ ers conjugated 0-23 mouth ity of (PREMARIN 00:00: daily. [place] ORAL) 00 MD Gian payton [facility] estrogens, 2018-07 Yes Take by Univ ers conjugated 0-23 mouth ity of (PREMARIN 00:00: daily. [place] ORAL) 00 MD Gian payton [facility] estrogens, 2018-07 Yes Take by Univ ers conjugated 0-23 mouth ity of (PREMARIN 00:00: daily. [place] ORAL) 00 MD Gian payton [facility] estrogens, 2018-07 Yes Take by Univ ers conjugated 0-23 mouth ity of (PREMARIN 00:00: daily. [place] ORAL) 00 MD Gian payton [facility] estrogens, 2018-07 Yes Take by Univ ers conjugated 0-23 mouth ity of (PREMARIN 00:00: daily. [place] ORAL) 00 MD [place] tata [facility] estrogens, 2018-07 Yes Take by Univ ers conjugated 0-23 mouth ity of (PREMARIN 00:00: daily. [place] ORAL) [facility] estrogens, 2018-07 Yes Take by Univ ers conjugated 0-23 mouth ity of (PREMARIN 00:00: daily. [place] ORAL) 00 [facility] estrogens, 2018-07 Yes Take by Univ ers conjugated 0-23 mouth ity of (PREMARIN 00:00: daily. [place] ORAL) 00 [facility] estrogens, 2018-07 Yes Take by Univ ers conjugated 0-23 mouth ity of (PREMARIN 00:00: daily. [place] ORAL) 00 [facility] estrogens, 2018-07 Yes Take by Univ ers conjugated 0-23 mouth ity of (PREMARIN 00:00: daily. [place] ORAL) 00 [facility] estrogens, 2018-07 Yes Take by Univ ers conjugated 0-23 mouth ity of (PREMARIN 00:00: daily. [place] ORAL) 00 [facility] estrogens, 2018-07 Yes Take by Univ ers conjugated 0-23 mouth ity of (PREMARIN 00:00: daily. [place] ORAL) 00 [facility] estrogens, 2018-07 Yes Take by Univ ers conjugated 0-23 mouth ity of (PREMARIN 00:00: daily. [place] ORAL) 00 [facility] Estradiol Estradiol 2018-07 Yes Kaywin 1 tablet Common 0-01 [facility] 00:00: - [facility] 00 [facility] citalopram Yes Univers (CeleXA) 40 9-10 ity of mg tablet 00:00: [place] 00 [facility] Univers (CeleXA) 40 9-10 ity of mg tablet 00:00: MD Gian payton [facility] citalopram Yes Univers (CeleXA) 40 9-10 ity of mg tablet 00:00: MD Springer [facility] citalopram Yes Univers (CeleXA) 40 9-10 ity of mg tablet 00:00: MD Gian payton [facility] citalopram Yes Univers (CeleXA) 40 9-10 ity of mg tablet 00:00: MD Gian payton [facility] citalopra Yes Univers (CeleXA) 40 9-10 ity of mg tablet [facility]: [facility] citalopra Yes Univers (CeleXA) 40 9-10 ity of mg tablet 00:00: MD Gian payton [facility] Univers (CeleXA) 40 9-10 ity of mg tablet 00:00: MD Gian payton [facility] citalopra Yes Univers (CeleXA) 40 9-10 ity of mg tablet 00:00: [facility] Univers (CeleXA) 40 9-10 ity of mg tablet 00:00: [facility] Yes Univers (CeleXA) 40 9-10 ity of mg tablet 00:00: MD Gian payton [facility] citalopra Yes Univers (CeleXA) 40 9-10 ity of mg tablet 00:00: [facility] citalopra Yes Univers (CeleXA) 40 9-10 ity of mg tablet 00:00: MD Gian payton [facility] citalopra Yes Univers (CeleXA) 40 9-10 ity of mg tablet 00:00: MD Gian payton [facility] levothyroxi Yes Univer s ne 175 mcg 8-10 ity of cap 00:00: MD Gian payton [facility] levothyroxi Yes Univer s ne 175 mcg 8-10 ity of cap 00:00: MD Gian payton [facility] levothyroxi Yes Univer s ne 175 mcg 8-10 ity of cap 00:00: MD Gian payton [facility] levothyroxi Yes Univer s ne 175 mcg 8-10 ity of cap 00:00: MD Gian payton [facility] levothyroxi Yes Univer s ne 175 mcg 8-10 ity of cap 00:00: [place] 00 MD Gian payton [facility] levothyroxi 2010-0 Yes Univer s ne 175 mcg 8-10 ity of cap 00:00: [place] 00 MD Gian payton [facility] levothyroxi 2010-0 Yes Univer s ne 175 mcg 8-10 ity of cap 00:00: [place] 00 MD Gian payton [facility] levothyroxi 2010-0 Yes Univer s ne 175 mcg 8-10 ity of cap 00:00: [place] 00 MD Gian payton [facility] levothyroxi 2010-0 Yes Univer s ne 175 mcg 8-10 ity of cap 00:00: [place] [facility] levothyroxi 2010-0 Yes Univer s ne 175 mcg 8-10 ity of cap 00:00: [place] 00 MD Gian payton [facility] levothyroxi 2010-0 Yes Univer s ne 175 mcg 8-10 ity of cap 00:00: [place] 00 MD Gian payton [facility] levothyroxi 2010-0 Yes Univer s ne 175 mcg 8-10 ity of cap 00:00: [place] [facility] levothyroxi 2010-0 Yes Univer s ne 175 mcg 8-10 ity of cap 00:00: [place] 00 MD Gian payton [facility] levothyroxi 2010-0 Yes Univer s ne 175 mcg 8-10 ity of cap 00:00: [place] 00 MD Gian payton [facility] zolpidem 2006-0 Yes Univers (AMBIEN) 10 07-01 ity of mg tablet 00:00: [place] 00 MD Gian payton [facility] zolpidem 2007-0 Yes Univers (AMBIEN) 10 07-01 ity of mg tablet 00:00: [place] 00 MD Gian payton [facility] zolpidem 2007-0 Yes Univers (AMBIEN) 10 07-01 ity of mg tablet 00:00: [place] 00 MD Gian payton [facility] zolpidem 2007-0 Yes Univers (AMBIEN) 10 07-01 ity of mg tablet 00:00: [place] 00 MD Gian payton [facility] zolpidem 2007-0 Yes Univers (AMBIEN) 10 07-01 ity of mg tablet 00:00: [place] 00 MD Anderso [facility] zolpidem 2007-0 Yes Univers (AMBIEN) 10 07-01 ity of mg tablet 00:00: [place] 00 MD Gian payton [facility] zolpidem Yes Univers (AMBIEN) 10 07-01 ity of mg tablet 00:00: 00 MD Gian payton [facility] zolpidem Yes Univers (AMBIEN) 10 07-01 ity of mg tablet 00:00: 00 MD Gian payton [facility] zolpidem Yes Univers (AMBIEN) 10 07-01 ity of mg tablet 00:00: [facility] zolpidem Yes Univers (AMBIEN) 10 07-01 ity of mg tablet 00:00: 00 MD Gian payton [facility] zolpide Yes Univers (AMBIEN) 10 07-01 ity of mg tablet 00:00: [place] 00 MD Gian payton [facility] zolpide Yes Univers (AMBIEN) 10 07-01 ity of mg tablet 00:00: [place] 00 MD Gian payton [facility] zolpidem Yes Univers (AMBIEN) 10 07-01 ity of mg tablet 00:00: [place] 00 MD Gian payton [facility] zolde Yes Univers (AMBIEN) 10 07-01 ity of mg tablet 00:00: [place] 00 MD Springer [facility] acetaminoph acetaminoph Yes 1 Q5.00H [facility] [...] C [facility] conjugated conjugated Gutierrez es (DETENTION) 1.25 (DETENTION) 1.25 Mem oria MG Oral MG Oral [...] [facility] conjugated conjugated daily Olamide kes (DETENTION) 1.25 (DETENTION) 1.25 Mem oria MG Oral MG Oral l Tablet Tablet (LUF/LI V/SA) levothyroxi levothyroxi Yes 150ug 1xD orally [facility] ne ne daily [facility] (LUF/LI V/SA) Celexa Celexa Yes Kaywin 1 tablet Commo n Aiden [facility] Levothyroxi Levothyroxi Yes Kaywin 1 tablet Common ne Sodium ne Sodium Aiden on an Sp karla empty - CHI stomach in [facility] Estradiol Estradiol Yes Kaywin 1 patch to Common Aiden skin [facility] Promethazin Promethazin No 1{table Promethazi e HCl 25 mg e HCl 25 mg t_as_ne ne HCl 25 eded} mg Estradiol Estradiol No 1{patch Estradiol 0.1 MG/24HR 0.1 MG/24HR _to_ski 0.1 n} MG/24HR Celexa 40 Celexa 40 No 1{table QD Celexa 40 MG MG t} MG [place] No 1{table QID [place] 7.5-325 MG 7.5-325 MG t_as_ne 7.5-325 MG [...] Sodium 150 MCG 150 MCG 150 MCG [place] No 1{table QID [place] 7.5-325 MG 7.5-325 MG t_as_ne 7.5-325 MG eded} Promethazin Promethazin No 1{table Promethazi e HCl 25 mg e HCl 25 mg t_as_ne ne HCl 25 eded} mg Estradiol Estradiol No 1{patch Estradiol 0.1 MG/24HR 0.1 MG/24HR _to_ski 0.1 n} MG/24HR Premarin Premarin No 1{table QD Premarin 1.25 MG 1.25 MG t} 1.25 MG [place] No 1{table QID [place] 7.5-325 MG 7.5-325 MG t_as_ne 7.5-325 MG [...] 1.25 MG 1.25 MG t} 1.25 MG [place] No 1{table QID [place] 7.5-325 MG 7.5-325 MG t_as_ne 7.5-325 MG eded} Levothyroxi Levothyroxi No QD Levothyrox ne Sodium ne Sodium ine Sodium 150 MCG 150 MCG 150 MCG CeleXA 40 CeleXA 40 No 1{table QD CeleXA 40 MG MG t} MG Immunizations Ordered Filled Immunization Date Status Comments [facility] e Immunization Name Name influenza, high influenza, high 2015-04-[address] [facility] dose seasonal, dose seasonal, 00:00:00 Memori al preservative-free preservative-free (LUF/DAVID/SA) Influenza, 2011-03-30 Completed University of Unspecified 00:00:00 [place] MD Hamilton [facility] Td 2011-03-30 Completed University of 00:00:00 [place] [facility] Influenza, 2011-03-30 Completed University of Unspecified 00:00:00 [place] [facility] 2011-[facility]-30 Completed University of 00:00:00 [place] [facility] Influenza, 2011-03-30 Completed University of Unspecified 00:00:00 [place] [facility] 2011-03-30 Completed University of 00:00:00 [place] MD Olvin banuelos [facility] Influenza, 2011-03-30 Completed University of Unspecified 00:00:00 [place] [facility] 2011-03-30 Completed University of 00:00:00 [place] MD Olvin banuelos [facility] Influenza, 2011-03-30 Completed University of Unspecified 00:00:00 [place] MD Hamilton [facility] Td 2011-03-30 Completed University of 00:00:00 [place] MD Bah [facility] Influenza, 2011-03-30 Completed University of Unspecified 00:00:00 [place] [facility] 2011-03-30 Completed University of 00:00:00 [place] [facility] Influenza, 2011-03-30 Completed University of Unspecified 00:00:00 [place] MD Hamilton [facility] Td 2011-03-30 Completed University of 00:00:00 [place] MD Bah [facility] Influenza, 2011-03-30 Completed University of Unspecified 00:00:00 [place] MD Alfonso hazel [facility] Tdap 2011-03-30 Completed University of 00:00:00 [place] Olvin banuelos [facility] Influenza, 2011-03-30 Completed University of Unspecified 00:00:00 [place] Alfonso hazel [facility] Tdap 2011-03-30 Completed University of 00:00:00 [place] Olvin banuelos [facility] Influenza, 2011-03-30 Completed University of Unspecified 00:00:00 [place] Alfonso hazel [facility] Tdap 2011-03-30 Completed University of 00:00:00 [place] Olvin banuelos [facility] Influenza, 2011-03-30 Completed University of Unspecified 00:00:00 [place] Alfonso hazel [facility] Tdap 2011-03-30 Completed University of 00:00:00 [place] Olvin banuelos [facility] Influenza, 2011-03-30 Completed University of Unspecified 00:00:00 [place] Alfonso hazel [facility] Tdap 2011-03-30 Completed University of 00:00:00 [place] Olvin banuelos [facility] Influenza, 2011-03-30 Completed University of Unspecified 00:00:00 [place] Alfonso hazel [facility] Tdap 2011-03-30 Completed University of 00:00:00 [place] Olvin banuelos [facility] Influenza, 2011-03-30 Completed University of Unspecified 00:00:00 [place] Alfonso hazel [facility] Tdap 2011-03-30 Completed University of 00:00:00 [place] Olvin banuelos [facility] Influenza (IM) 2009-04-05 Completed [facility] 00:00:00 [facility] Influenza (IM) 2009-04-05 Completed [facility] 00:00[facility]00 [facility] Influenza (IM) 2009-04-05 Completed [facility] 00:00:00 [facility] Influenza (IM) 2009-04-05 Completed [facility] 00:00:00 [facility] Influenza (IM) 2009-04-05 Completed [facility] 00:00:00 [facility] Influenza (IM) 2009-04-05 Completed [facility] 00:00:00 [facility] Influenza (IM) 2009-04-05 Completed [facility] 00:00:00 [facility] Influenza (IM) 2009-04-05 Completed [facility] 00:00:00 [facility] Influenza (IM) 2009-04-05 Completed [facility] 00:00:00 [facility] Influenza (IM) 2009-04-05 Completed [facility] 00:00:00 [facility] Influenza (IM) 2009-04-05 Completed [facility] 00:00:00 [facility] Influenza (IM) 2009-04-05 Completed [facility] 00:00:00 [facility] Influenza (IM) 2009-04-05 Completed [facility] 00:00:00 [facility] Influenza (IM) 2009-04-05 Completed [facility] 00:00:00 [facility] Vital Signs Vital Name Observation Time Observation Value Comments Source Systolic blood 2022-06-13 23:28:00 132 mm[Hg] [facility] of pressure [facility] Diastolic blood 2022-06-13 23:28:00 83 mm[Hg] Unive rsity of pressure [facility] Heart rate 2022-06-13 23:28:00 107 /min [facility] Body temperature 2022-06-13 23:28:00 37.17 Ericka [facility] 2022-06-13 23:28:00 16 /min [facility] Body height 2022-06-13 23:28:00 162.6 cm [facility] Body weight 2022-06-13 23:28:00 102.15 kg [facility] BMI 2022-06-13 23:28:00 38.66 kg/m2 [facility] Oxygen saturation in 2022-06-13 23:28:00 96 /min [facility] Arterial blood by [facility] Pulse oximetry Branch Systolic blood 2022-05-07 14:46:22 138 mm[Hg] Univer sity of pressure [facility] Diastolic blood 2022-05-07 14:46:22 88 mm[Hg] Unive rsity of pressure [facility] Heart rate 2022-05-07 14:46:22 89 /min [facility] Respiratory rate 2022-05-07 14:46:22 20 /min [facility] [place] [facility] Oxygen saturation in 2022-05-07 14:46:22 98 /min [facility] Arterial blood by [facility] Pulse oximetry Branch Body temperature 2022-05-07 14:07:33 37 Ericka [facility] Body height 2022-05-07 13:56:00 162.6 cm [facility] Body weight 2022-05-07 13:56:00 108.863 kg [facility] BMI 2022-05-07 13:56:00 41.20 kg/m2 [facility] Systolic blood 2022-02-19 14:13:00 156 mm[Hg] [facility] pressure [facility] Diastolic blood 2022-02-19 14:13:00 94 mm[Hg] Unive rsity of pressure [facility] Heart rate 2022-02-19 14:13:00 111 /min [facility] Body temperature 2022-02-19 14:13:00 37.11 Ericka [facility] Respiratory rate 2022-02-19 14:13:00 22 /min [facility] Body height 2022-02-19 14:13:00 162.6 cm [facility] Body weight 2022-02-19 14:13:00 104.327 kg [facility] BMI 2022-02-19 14:13:00 39.48 kg/m2 [facility] Oxygen saturation in 2022-02-19 14:13:00 99 /min [facility] Arterial blood by [facility] Pulse oximetry Branch Systolic blood 2021-11-29 22:40:00 116 mm[Hg] Univer [facility]ity of pressure [facility] Diastolic blood 2021-11-29 22:40:00 85 mm[Hg] [facility] Heart rate 2021-11-29 22:40:00 87 /min [facility] Body temperature 2021-11-29 22:40:00 37.28 Ericka [facility] Respiratory rate 2021-11-29 22:40:00 16 /min [facility] Body height 2021-11-29 22:40:00 162.6 cm Universi ty [facility] Body weight 2021-11-29 22:40:00 103.874 kg Universi [facility] BMI 2021-11-29 22:40:00 39.31 kg/m2 [facility] Oxygen saturation in 2021-11-29 22:40:00 98 /min [facility] Arterial blood by [facility] Pulse oximetry Branch Height 2021-04-23 00:58:00 [...] KG Systolic blood 2021-10-26 15:16:33 119 mm[Hg[facility] Diastolic blood 2021-10-26 15:16:33 87 mm[Hg] [facility]ive [facility]ity of pressure [place] [facility] Heart rate 2021-10-26 15:16:33 92 /min [facility] Respiratory rate 2021-10-26 15:16:33 16 /[facility] Oxygen saturation in 2021-10-26 15:16:33 98 /min University Arterial blood by Jeffrey muñoz Pulse oximetry [facility] Body Temperature 2021-04-23 00:58:00 97.8 [degF] [facility] (LUF/DAVID/SA) Pulse Rate 2021-04-23 00:58:00 116 /min [facility] (LUF/DAVID/SA) Respiratory Rate 2021-04-23 00:58:00 18 /min [facility] (LUF/DAVID/SA) O2% BldC Oximetry 2021-04-23 00:58:00 99 % [facility] (LUF/DAVID/SA) BP Systolic 2021-04-23 00:58:00 111 mm[Hg] [facility] (LUF/DAVID/SA) BP Diastolic 2021-04-23 00:58:00 77 mm[Hg] [facility] (LUF/DAVID/SA) Height 2021-04-23 00:58:00 64 [in_i] [facility] (F/DAVID/SA) Weight 2021-04-23 00:58:00 105.1 kg [facility] (LUF/DAVID/SA) BMI (Body Mass 2021-04-23 00:58:00 40 kg/m2 [facility] (LUF/DAVID/SA) Body Temperature 2021-03-24 10:53:00 98.6 [degF] [facility] (LUF/DAVID/SA) Pulse Rate 2021-03-24 10:53:00 87 /min [facility] (LUF/DAVID/SA) Respiratory Rate 2021-03-24 10:53:00 18 /min [facility] (LUF/DAVID/SA) O2% BldC Oximetry 2021-03-24 10:53:00 97 % [facility] (LUF/DAVID/SA) BP Systolic 2021-03-24 10:53:00 120 mm[Hg] [facility] (LUF/DAVID/SA) BP Diastolic 2021-03-24 10:53:00 86 mm[Hg] [facility] (LUF/DAVID/SA) Height 2021-03-24 10:53:00 64 [in_i] [facility] (LUF/DAVID/SA) Weight 2021-03-24 10:53:00 105 kg [facility] (LUF/DAVID/SA) BMI (Body Mass 2021-03-24 10:53:00 40 kg/m2 [facility]) [facility] (LUF/DAVID/SA) Body Temperature 2021-03-10 10:55:00 98.4 [degF] [facility] (LUF/DAVID/SA) Pulse Rate 2021-03-10 10:55:00 85 /min [facility] (LUF/DAVID/SA) Respiratory Rate 2021-03-10 10:55:00 20 /min [facility] (F/DAVID/SA) O2% BldC Oximetry 2021-03-10 10:55:00 100 % [facility] (LUF/DAVID/SA) BP Systolic 2021-03-10 10:55:00 140 mm[Hg] [facility] (LUF/DAVID/SA) BP Diastolic 2021-03-10 10:55:00 98 mm[Hg] [facility] (LUF/[facility]VID/SA) Height 2021-03-10 10:55:00 64 [in_i] [facility] (LUF/DAVID/SA) Weight 2021-03-10 10:55:00 105.2 kg [facility] (LUF/DAVID/SA) BMI (Body Mass 2021-03-10 10:55:00 40 kg/m2 [facility]) [facility] (LUF/DAVID/SA) Pulse Rate 2021-02-23 12:32:00 67 /min [facility] (LUF/DAVID/SA) O2% BldC Oximetry 2021-02-23 12:32:00 98 % [facility] (LUF/DAVID/SA) BP Systolic 2021-02-23 12:32:00 112 mm[Hg] [facility] (LUF/DAVID/SA) BP Diastolic 2021-02-23 12:32:00 70 mm[Hg] [facility] (LUF/DAVID/SA) Heart Rate 2021-02-23 11:16:00 64 /min [facility] (LUF/DAVID/SA) Respiratory Rate 2021-02-23 11:16:00 14 /min [facility] (F/DAVID/SA) Body Temperature 2021-02-23 08:24:00 98.1 [degF] [facility] (F/DAVID/SA) Height 2021-02-23 08:24:00 64 [in_i] [facility] (F/DAVID/SA) Weight 2021-02-23 08:24:00 110 kg [facility] (F/DAVID/SA) BMI (Body Mass 2021-02-23 08:24:00 41.9 kg/m2 [facility] (LUF/DAVID/SA) Heart Rate 2021-01-10 01:46:00 93 /min [facility] (F/DAVID/SA) Pulse Rate 2021-01-10 01:46:00 95 /min [facility] (F/DAVID/SA) Respiratory Rate 2021-01-10 01:46:00 16 /min [facility] (F/DAVID/SA) O2% BldC Oximetry 2021-01-10 01:46:00 97 % [facility] (F/DAVID/SA) BP Systolic 2021-01-10 01:46:00 103 mm[Hg] [facility] (LUF/DAVID/SA) BP Diastolic 2021-01-10 01:46:00 71 mm[Hg] [facility] (LUF/[facility]ID/SA) Weight 2021-01-10 00:53:00 102 kg [facility] (F/DAVID/SA) Body Temperature 2021-01-10 00:47:00 98.6 [degF] [facility] (LUF/DAVID/SA) Pulse Rate 2020-12-12 14:20:00 87 /min [facility] (LUF/DAVID/SA) O2% BldC Oximetry 2020-12-12 14:20:00 98 % [facility] (LUF/DAVID/SA) BP Systolic 2020-12-12 14:20:00 128 mm[Hg] [facility] (LUF/DAVID/SA) BP Diastolic 2020-12-12 14:20:00 86 mm[Hg] [facility] (LUF/[facility]) Body Temperature 2020-12-12 12:39:00 98.9 [degF] [facility] (LUF/DAVID/SA) Respiratory Rate 2020-12-12 12:39:00 20 /min [facility] (LUF/ADVID/SA) Weight 2020-12-12 12:39:00 102 kg [facility] (LUF/DAVID/SA) Body Temperature 2020-12-08 10:27:00 98.6 [degF] [facility] (LUF/DAVID/SA) Pulse Rate 2020-12-08 10:27:00 79 /min [facility] (LUF/DAVID/SA) Respiratory Rate 2020-12-08 10:27:00 16 /min [facility] (LUF/DAVID/SA) O2% BldC Oximetry 2020-12-08 10:27:00 99 % [facility] (LUF/DAVID/SA) BP Systolic 2020-12-08 10:27:00 111 mm[Hg] [facility] (LUF/DAVID/SA) BP Diastolic 2020-12-08 10:27:00 57 mm[Hg] [facility] (LUF/[facility]/SA) Weight 2020-12-08 10:27:00 103 kg [facility] (LUF/DAVID/SA) Body Temperature 2020-11-25 00:27:00 97.9 [degF] [facility] (LUF/DAVID/SA) Pulse Rate 2020-11-25 00:27:00 82 /min [facility] (LUF/DAVID/SA) Respiratory Rate 2020-11-25 00:27:00 17 /min [facility] (LUF/DAVID/SA) O2% BldC Oximetry 2020-11-25 00:27:00 98 % [facility] (LUF/DAVID/SA) BP Systolic 2020-11-25 00:27:00 109 mm[Hg] [facility] (LUF/DAVID/SA) BP Diastolic 2020-11-25 00:27:00 62 mm[Hg] [facility] (LUF/DAVID/SA) Heart Rate 2020-11-21 09:30:00 75 /min [facility] (LUF/DAVID/SA) Respiratory Rate 2020-11-21 09:30:00 14 /min [facility] (LUF/DAVID/SA) BP Systolic 2020-11-21 09:30:00 120 mm[Hg] [facility] (LUF/DAVID/SA) BP Diastolic 2020-11-21 09:30:00 76 mm[Hg] [facility] (LUF/DAVID/SA) Body Temperature 2020-11-21 07:15:00 98.1 [degF] [facility] (LUF/DAVID/SA) Pulse Rate 2020-11-21 07:15:00 103 /min [facility] (LUF/DAVID/SA) O2% BldC Oximetry 2020-11-21 07:15:00 100 % [facility] (F/DAVID/SA) Height 2020-11-21 07:15:00 64 [in_i] [facility] (F/DAVID/SA) Weight 2020-11-21 07:15:00 103.1 kg [facility] (F/DAVID/SA) BMI (Body Mass 2020-11-21 07:15:00 39.2 kg/m2 [facility] (LUF/DAVID/SA) Heart Rate 2020-11-14 13:30:00 69 /min [facility] (LUF/DAVID/SA) Pulse Rate 2020-11-14 13:30:00 70 /min [facility] (LUF/DAVID/SA) Respiratory Rate 2020-11-14 13:30:00 10 /min [facility] (LUF/DAVID/SA) O2% BldC Oximetry 2020-11-14 13:30:00 96 % [facility] (LUF/DAVID/SA) BP Systolic 2020-11-14 13:30:00 103 mm[Hg] [facility] (LUF/DAVID/SA) BP Diastolic 2020-11-14 13:30:00 77 mm[Hg] [facility] (LUF/DAVID/SA) Body Temperature 2020-11-14 09:47:00 97.4 [degF] [facility] (F/DAVID/SA) Weight 2020-11-14 09:47:00 103 kg [facility] (LUF/DAVID/SA) Body Temperature 2020-11-08 08:32:00 98.1 [degF] [facility] (LUF/DAVID/SA) Pulse Rate 2020-11-08 08:32:00 82 /min [facility] (LUF/DAVID/SA) Respiratory Rate 2020-11-08 08:32:00 20 /min [facility] (LUF/DAVID/SA) O2% BldC Oximetry 2020-11-08 08:32:00 100 % [facility] (F/DAVID/SA) BP Systolic 2020-11-08 08:32:00 129 mm[Hg] [facility] (LUF/DAVID/SA) BP Diastolic 2020-11-08 08:32:00 72 mm[Hg] [facility] (F/DAVID/SA) Height 2020-11-08 08:32:00 64 [in_i] [facility] (F/DAVID/SA) Weight 2020-11-08 08:32:00 103.1 kg [facility] (LUF/DAVID/SA) BMI (Body Mass 2020-11-08 08:32:00 39.2 kg/m2 [facility] (LUF/DAVID/SA) Body Temperature 2020-11-01 00:58:00 98.7 [degF] [facility] (LUF/DAVID/SA) Pulse Rate 2020-11-01 00:58:00 104 /min [facility] (LUF/[facility]/SA) Respiratory Rate 2020-11-01 00:58:00 20 /min [facility] (LUF/DAVID/SA) O2% BldC Oximetry 2020-11-01 00:58:00 99 % [facility] (LUF/DAVID/SA) BP Systolic 2020-11-01 00:58:00 133 mm[Hg] [facility] (LUF/[facility]VID/SA) BP Diastolic 2020-11-01 00:58:00 101 mm[Hg] [facility] (LUF/[facility]) Height 2020-11-01 00:53:00 65 [in_i] [facility] (F/DAVID/SA) Weight 2020-11-01 00:53:00 103 kg [facility] (LUF/DAVID/SA) BMI (Body Mass 2020-11-01 00:53:00 37.8 kg/m2 [facility] (LUF/DAVID/SA) Body Temperature 2020-10-04 23:51:00 98 [degF] [facility] (LUF/DAVID/SA) Pulse Rate 2020-10-04 23:51:00 96 /min [facility] (LUF/[facility]) Respiratory Rate 2020-10-04 23:51:00 20 /min [facility] (LUF/DAVID/SA) O2% BldC Oximetry 2020-10-04 23:51:00 98 % [facility] (LUF/DAVID/SA) BP Systolic 2020-10-04 23:51:00 125 mm[Hg] [facility] (LUF/[facility]) BP Diastolic 2020-10-04 23:51:00 73 mm[Hg] [facility] (LUF/[facility]) Height 2020-10-04 23:47:00 65 [in_i] [facility] (LUF/[facility]VID/SA) Weight 2020-10-04 23:47:00 102.6 kg [facility] (LUF/DAVID/SA) BMI (Body Mass 2020-10-04 23:47:00 37.6 kg/m2 [facility] Index) [facility] (LUF/DAVID/SA) Body Temperature 2020-09-18 01:44:00 98.3 [degF] [facility] (LUF/DAVID/SA) Pulse Rate 2020-09-18 01:44:00 116 /min [facility] (LUF/[facility]/SA) Respiratory Rate 2020-09-18 01:44:00 20 /min [facility] (F/DAVID/SA) O2% BldC Oximetry 2020-09-18 01:44:00 99 % [facility] (LUF/DAVID/SA) BP Systolic 2020-09-18 01:44:00 127 mm[Hg] [facility] (LUF/[facility]) BP Diastolic 2020-09-18 01:44:00 83 mm[Hg] [facility] (LUF/[facility]) Height 2020-09-18 01:40:00 64 [in_i] [facility] (F/DAVID/SA) Weight 2020-09-18 01:40:00 102.8 kg [facility] (LUF/DAVID/SA) BMI (Body Mass 2020-09-18 01:40:00 39.1 kg/m2 [facility] Index) [facility] (LUF/DAVID/SA) Pulse Rate 2020-09-12 02:16:00 88 /min [facility] (LUF/[facility]/SA) O2% BldC Oximetry 2020-09-12 02:16:00 98 % [facility] (LUF/DAVID/SA) BP Systolic 2020-09-12 02:16:00 113 mm[Hg] [facility] ([facility]F/[facility]) BP Diastolic 2020-09-12 02:16:00 64 mm[Hg] [facility] (LUF/[facility]) Body Temperature 2020-09-12 00:56:00 97.9 [degF] [facility] (F/DAVID/SA) Respiratory Rate 2020-09-12 00:56:00 18 /min [facility] (LUF/DAVID/SA) Height 2020-09-12 00:50:00 65 [in_i] [facility] (LUF/[facility]) Weight 2020-09-12 00:50:00 104.5 kg [facility] (LUF/[facility]VID/SA) BMI (Body Mass 2020-09-12 00:50:00 38.3 kg/m2 [facility] Index) [facility] (LUF/DAVID/SA) Pulse Rate 2020-08-22 03:16:00 100 /min [facility] (LUF/[facility]) O2% BldC Oximetry 2020-08-22 03:16:00 95 % [facility] (LUF/DAVID/SA) BP Systolic 2020-08-22 03:16:00 129 mm[Hg] [facility] (LUF/[facility]) BP Diastolic 2020-08-22 03:16:00 88 mm[Hg] [facility] ([facility]F/[facility]) Body Temperature 2020-08-22 01:35:00 98.4 [degF] [facility] (LUF/DA[facility]ID/SA) Respiratory Rate 2020-08-22 01:35:00 20 /min [facility] (LUF/DAVID/SA) Height 2020-08-22 01:35:00 64 [in_i] [facility] (LUF/[facility]) Weight 2020-08-22 01:35:00 102 kg [facility] (LUF/DAVID/SA) BMI (Body Mass 2020-08-22 01:35:00 38.8 kg/m2 [facility] Index) [facility] (LUF/DAVID/SA) Pulse Rate 2020-08-06 03:31:00 83 /min [facility] (LUF/[facility]) O2% BldC Oximetry 2020-08-06 03:31:00 96 % [facility] (LUF/DAVID/SA) BP Systolic 2020-08-06 03:31:00 127 mm[Hg] [facility] (LUF/[facility]) BP Diastolic 2020-08-06 03:31:00 82 mm[Hg] [facility] (LUF/[facility]) Body Temperature 2020-08-06 01:45:00 98 [degF] [facility] (LUF/DAVID/SA) Respiratory Rate 2020-08-06 01:45:00 20 /min [facility] (F/DAVID/SA) Height 2020-08-06 01:39:00 66 [in_i] [facility] (LUF/[facility]) Weight 2020-08-06 01:39:00 104.2 kg [facility] (LUF/[facility]/SA) BMI (Body Mass 2020-08-06 01:39:00 37.3 kg/m2 [facility] (LUF/DAVID/SA) Pulse Rate 2020-07-19 11:16:00 67 /min [facility] (F/DAVID/SA) O2% BldC Oximetry 2020-07-19 11:16:00 94 % [facility] (LUF/DAVID/SA) BP Systolic 2020-07-19 11:16:00 101 mm[Hg] [facility] (LUF/[facility]) BP Diastolic 2020-07-19 11:16:00 63 mm[Hg] [facility] (LUF/[facility]) Body Temperature 2020-07-19 07:50:00 98 [degF] [facility] (F/DAVID/SA) Respiratory Rate 2020-07-19 07:50:00 18 /min [facility] (F/DAVID/SA) Weight 2020-07-19 07:50:00 100 kg [facility] (F/DAV[facility]) Heart Rate 2020-07-05 04:46:00 80 /min [facility] (LUF/[facility]) Respiratory Rate 2020-07-05 04:46:00 15 /min [facility] (LUF/DAVID/SA) BP Systolic 2020-07-05 04:46:00 134 mm[Hg] [facility] (LUF/[facility]) BP Diastolic 2020-07-05 04:46:00 60 mm[Hg] [facility] (LUF/[facility]) Body Temperature 2020-07-05 02:57:00 98 [degF] [facility] (LUF/DAVID/SA) Pulse Rate 2020-07-05 02:57:00 82 /min [facility] (LUF/[facility]) O2% BldC Oximetry 2020-07-05 02:57:00 99 % [facility] (LUF/DAVID/SA) Height 2020-07-05 02:50:00 65 [in_i] [facility] (LUF/[facility]/SA) Weight 2020-07-05 02:50:00 102.1 kg [facility] (LUF/DAVID/SA) BMI (Body Mass 2020-07-05 02:50:00 37.5 kg/m2 [facility] Index) [facility] (LUF/DAVID/SA) Body Temperature 2020-06-07 13:38:00 98.5 [degF] [facility] (LUF/DAVID/SA) Pulse Rate 2020-06-07 13:38:00 95 /min [facility] (LUF/[facility]) Respiratory Rate 2020-06-07 13:38:00 20 /min [facility] (LUF/DAVID/SA) O2% BldC Oximetry 2020-06-07 13:38:00 97 % [facility] (LUF/DAVID/SA) BP Systolic 2020-06-07 13:38:00 129 mm[Hg] [facility] (LUF/[facility]) BP Diastolic 2020-06-07 13:38:00 73 mm[Hg] [facility] (LUF/[facility]/SA) Height 2020-06-07 13:38:00 64 [in_i] [facility] (LUF/DAVID/SA) Weight 2020-06-07 13:38:00 99.79 kg [facility] (LUF/DAVID/SA) BMI (Body Mass 2020-06-07 13:38:00 38 kg/m2 [facility] Index) [facility] (LUF/DAVID/SA) Body Temperature 2020-05-31 09:45:00 99.6 [degF] [facility] (LUF/DAVID/SA) Pulse Rate 2020-05-31 09:45:00 86 /min [facility] (LUF/[facility]) Respiratory Rate 2020-05-31 09:45:00 18 /min [facility] (LUF/DAVID/SA) O2% BldC Oximetry 2020-05-31 09:45:00 98 % [facility] (LUF/DAVID/SA) BP Systolic 2020-05-31 09:45:00 118 mm[Hg] [facility] (LUF/[facility]/SA) BP Diastolic 2020-05-31 09:45:00 78 mm[Hg] [facility] (LUF/[facility]) Height 2020-05-31 09:45:00 64 [in_i] [facility] (LUF/[facility]/SA) Weight 2020-05-31 09:45:00 99.79 kg [facility] (LUF/DAVID/SA) BMI (Body Mass 2020-05-31 09:45:00 38 kg/m2 [facility] (LUF/DAVID/SA) Heart Rate 2020-04-25 20:01:00 69 /min [facility] (LUF/DAVID/SA) Pulse Rate 2020-04-25 20:01:00 71 /min [facility] (LUF/DAVID/SA) Respiratory Rate 2020-04-25 20:01:00 18 /min [facility] (LUF/DAVID/SA) O2% BldC Oximetry 2020-04-25 20:01:00 100 % [facility] (LUF/DAVID/SA) BP Systolic 2020-04-25 20:01:00 126 mm[Hg] [facility] (LUF/[facility]VID/SA) BP Diastolic 2020-04-25 20:01:00 86 mm[Hg] [facility] (LUF/[facility]/SA) Body Temperature 2020-04-25 16:50:00 98.4 [degF] [facility] (LUF/DAVID/SA) Height 2020-04-25 16:50:00 64 [in_i] [facility] (LUF/DAVID/SA) Weight 2020-04-25 16:50:00 220 [lb_av] [facility] (LUF/DAVID/SA) BMI (Body Mass 2020-04-25 16:50:00 38 kg/m2 [facility]) [facility] (LUF/DAVID/SA) Heart Rate 2020-03-20 18:18:00 112 /min [facility] (LUF/DAVID/SA) Pulse Rate 2020-03-20 18:16:00 93 /min [facility] (LUF/DAVID/SA) O2% BldC Oximetry 2020-03-20 18:16:00 92 % [facility] (LUF/DAVID/SA) BP Systolic 2020-03-20 18:16:00 127 mm[Hg] [facility] (LUF/[facility]) BP Diastolic 2020-03-20 18:16:00 85 mm[Hg] [facility] (LUF/[facility]/SA) Body Temperature 2020-03-20 17:17:00 99.2 [degF] [facility] (LUF/DAVID/SA) Respiratory Rate 2020-03-20 17:17:00 19 /min [facility] (LUF/DAV[facility]/[place]) Height 2020-03-20 17:17:00 64 [in_i] [facility] ([facility]) Weight 2020-03-20 17:17:00 106.9 kg [facility] ([facility]) BMI (Body Mass 2020-03-20 17:17:00 40.7 kg/m2 [facility]) [facility] (LUF/[facility]VID/[facility]) Respiratory Rate 2020-03-17 10:33:00 16 /min [facility] (LU[facility]ID/[facility]) Body Temperature 2020-03-17 07:54:00 97.9 [degF] [facility] (LU[facility]ID/[facility]) Pulse Rate 2020-03-17 07:54:00 83 /min [facility] ([facility]) O2% BldC Oximetry 2020-03-17 07:54:00 96 % [facility] (LUF/[facility]ID/[facility]) BP Systolic 2020-03-17 07:54:00 107 mm[Hg] [facility] (LUF/DAVID/SA) BP Diastolic 2020-03-17 07:54:00 75 mm[Hg] [facility] (LUF/DAVID/SA) Weight 2020-03-17 00:09:00 105.6 kg [facility] (LUF/DVAID/SA) Heart Rate 2020-03-13 15:46:00 81 /min [facility] (LUF/DAVID/SA) Height 2020-03-13 15:31:00 64 [in_i] [facility] (LUF/DVAID/SA) Body Temperature 2020-03-02 15:20:00 98.6 [degF] [facility] (LUF/DAVID/SA) Pulse Rate 2020-03-02 15:20:00 86 /min [facility] (LUF/DAVID/SA) Respiratory Rate 2020-03-02 15:20:00 18 /min [facility] (LUF/DAVID/SA) O2% BldC Oximetry 2020-03-02 15:20:00 99 % [facility] (LUF/DAVID/SA) BP Systolic 2020-03-02 15:20:00 131 mm[Hg] [facility] (LUF/DAVID/SA) BP Diastolic 2020-03-02 15:20:00 85 mm[Hg] [facility] (LUF/DAVID/SA) Height 2020-03-01 10:54:00 64 [in_i] [facility] (LUF/DAVID/SA) Weight 2020-03-01 10:54:00 102 kg [facility] (LUF/DAVID/SA) BMI (Body Mass 2020-03-01 10:54:00 38.8 kg/m2 [facility] (LUF/DAVID/SA) Respiratory Rate 2020-02-27 07:47:00 16 /min [facility] (LUF/DAVID/SA) Body Temperature 2020-02-27 07:32:00 98.2 [degF] [facility] (LUF/DAVID/SA) Pulse Rate 2020-02-27 07:32:00 94 /min [facility] (LUF/DAVID/SA) O2% BldC Oximetry 2020-02-27 07:32:00 95 % [facility] (LUF/DAVID/SA) BP Systolic 2020-02-27 07:32:00 111 mm[Hg] [facility] (LUF/DAVID/SA) BP Diastolic 2020-02-27 07:32:00 56 mm[Hg] [facility] (LUF/DAVID/SA) Weight 2020-02-26 02:09:00 99.6 kg [facility] (LUF/DAVID/SA) Height 2020-02-25 10:03:00 64 [in_i] [facility] (LUF/DAVID/SA) Body Temperature 2020-02-25 00:52:00 97.9 [degF] [facility] (LUF/DAVID/SA) Pulse Rate 2020-02-25 00:52:00 118 /min [facility] (LUF/DAVID/SA) Respiratory Rate 2020-02-25 00:52:00 18 /min [facility] (LUF/DAVID/SA) O2% BldC Oximetry 2020-02-25 00:52:00 97 % [facility] (LUF/DAVID/SA) BP Systolic 2020-02-25 00:52:00 133 mm[Hg] [facility] (LUF/DAVID/SA) BP Diastolic 2020-02-25 00:52:00 67 mm[Hg] [facility] (LUF/DAVID/SA) Height 2020-02-25 00:47:00 64 [in_i] [facility] (LUF/DAVID/SA) Weight 2020-02-25 00:47:00 103.4 kg [facility] (LUF/DAVID/SA) BMI (Body Mass 2020-02-25 00:47:00 39.3 kg/m2 [facility] (LUF/DAVID/SA) Body Temperature 2020-01-25 11:32:00 98.4 [degF] [facility] (LUF/DAVID/SA) Pulse Rate 2020-01-25 11:32:00 81 /min [facility] (LUF/DAVID/SA) Respiratory Rate 2020-01-25 11:32:00 14 /min [facility] (LUF/DAVID/SA) O2% BldC Oximetry 2020-01-25 11:32:00 98 % [facility] (LUF/DAVID/SA) BP Systolic 2020-01-25 11:32:00 139 mm[Hg] [facility] (LUF/DVAID/SA) BP Diastolic 2020-01-25 11:32:00 89 mm[Hg] [facility] (LUF/DAVID/SA) Height 2020-01-25 11:32:00 64 [in_i] [facility] (LUF/DAVID/SA) Weight 2020-01-25 11:32:00 100.5 kg [facility] (LUF/DAVID/SA) BMI (Body Mass 2020-01-25 11:32:00 38.2 kg/m2 [facility] (LUF/DAVID/SA) Heart Rate 2019-11-24 04:16:00 84 /min [facility] (LUF/DAVID/SA) Pulse Rate 2019-11-24 04:16:00 90 /min [facility] (LUF/DAVID/SA) Respiratory Rate 2019-11-24 04:16:00 26 /min [facility] (LUF/DAVID/SA) O2% BldC Oximetry 2019-11-24 04:16:00 98 % [facility] (LUF/DAVID/SA) BP Systolic 2019-11-24 04:16:00 106 mm[Hg] [facility] (LUF/DAVID/SA) BP Diastolic 2019-11-24 04:16:00 69 mm[Hg] [facility] (LUF/DAVID/SA) Body Temperature 2019-11-24 00:54:00 98.4 [degF] [facility] (LUF/DAVID/SA) Height 2019-11-24 00:49:00 65 [in_i] [facility] (LUF/DAVID/SA) Weight 2019-11-24 00:49:00 103 kg [facility] (LUF/DAVID/SA) BMI (Body Mass 2019-11-24 00:49:00 37.8 kg/m2 [facility] Index) [facility] (LUF/DAVID/SA) Heart Rate 2019-10-07 22:54:00 83 /min [facility] (LUF/DAVID/SA) Respiratory Rate 2019-10-07 22:54:00 14 /min [facility] (LUF/DAVID/SA) Pulse Rate 2019-10-07 22:31:00 89 /min [facility] (LUF/DAVID/SA) O2% BldC Oximetry 2019-10-07 22:31:00 97 % [facility] (F/DAVID/SA) BP Systolic 2019-10-07 21:16:00 127 mm[Hg] [facility] (LUF/DAVID/SA) BP Diastolic 2019-10-07 21:16:00 85 mm[Hg] [facility] (LUF/DAVID/SA) Height 2019-10-07 20:41:00 64 [in_i] [facility] (F/DAVID/SA) Weight 2019-10-07 20:41:00 100.2 kg [facility] (F/DAVID/SA) BMI (Body Mass 2019-10-07 20:41:00 38.1 kg/m2 [facility]) [facility] (LUF/DAVID/SA) Pulse Rate 2019-09-20 04:16:00 96 /min [facility] (LUF/DAVID/SA) Respiratory Rate 2019-09-20 04:16:00 9 /min [facility] (F/DAVID/SA) O2% BldC Oximetry 2019-09-20 04:16:00 96 % [facility] (LUF/DAVID/SA) BP Systolic 2019-09-20 04:16:00 97 mm[Hg] [facility] (F/DAVID/SA) BP Diastolic 2019-09-20 04:16:00 76 mm[Hg] [facility] (LUF/DAVID/SA) Body Temperature 2019-09-20 00:44:00 98 [degF] [facility] (LUF/DAVID/SA) Height 2019-09-20 00:39:00 65 [in_i] [facility] (LUF/DAVID/SA) Weight 2019-09-20 00:39:00 101.9 kg [facility] (LUF/DAVID/SA) BMI (Body Mass 2019-09-20 00:39:00 37.4 kg/m2 [facility]) [facility] (LUF/DAVID/SA) Pulse Rate 2019-08-17 04:31:00 81 /min [facility] (LUF/DAVID/SA) Respiratory Rate 2019-08-17 04:31:00 13 /min [facility] (LUF/DAVID/SA) O2% BldC Oximetry 2019-08-17 04:31:00 97 % [facility] (LUF/DAVID/SA) BP Systolic 2019-08-17 04:31:00 136 mm[Hg] [facility] (LUF/DAVID/SA) BP Diastolic 2019-08-17 04:31:00 75 mm[Hg] [facility] (LUF/DAVID/SA) Body Temperature 2019-08-17 02:23:00 97.6 [degF] [facility] (F/DAVID/SA) Height 2019-08-17 02:19:00 64 [in_i] [facility] (LUF/DAVID/SA) Weight 2019-08-17 02:19:00 100.6 kg [facility] (LUF/DAVID/SA) BMI (Body Mass 2019-08-17 02:19:00 38.3 kg/m2 [facility]) [facility] (LUF/DAVID/SA) Pulse Rate 2018-12-07 02:33:00 79 /min [facility] (LUF/DAVID/SA) Respiratory Rate 2018-12-07 02:33:00 15 /min [facility] (LUF/DAVID/SA) O2% BldC Oximetry 2018-12-07 02:33:00 96 % [facility] (LUF/DAVID/SA) BP Systolic 2018-12-07 02:33:00 120 mm[Hg] [facility] (LUF/DAVID/SA) BP Diastolic 2018-12-07 02:33:00 76 mm[Hg] [facility] (LUF/DAVID/SA) Body Temperature 2018-12-07 01:10:00 98.2 F [facility] (F/DAVID/SA) Height 2018-12-07 01:10:00 64 in [facility] (F/DAVID/SA) Weight Measured 2018-12-07 01:10:00 218.25 lbs [facility] (LUF/DAVID/SA) BMI (Body Mass 2018-12-07 01:10:00 37.7 kg/m2 [facility]) [facility] (LUF/DAVID/SA) Pulse Rate 2018-09-30 19:40:00 70 /min [facility] (LUF/DAVID/SA) Respiratory Rate 2018-09-30 19:40:00 21 /min [facility] (F/DAVID/SA) O2% BldC Oximetry 2018-09-30 19:40:00 100 % [facility] (F/DAVID/SA) BP Systolic 2018-09-30 19:40:00 124 mm[Hg] [facility] (LUF/DAVID/SA) BP Diastolic 2018-09-30 19:40:00 88 mm[Hg] [facility] (LUF/DAVID/SA) Body Temperature 2018-09-30 19:23:00 99.3 F [facility] (F/DVAID/SA) Height 2018-09-30 19:23:00 66 in [facility] (F/DAVID/SA) Weight Measured 2018-09-30 19:23:00 212.52 lbs [facility] (LUF/DAVID/SA) BMI (Body Mass 2018-09-30 19:23:00 34.5 kg/m2 [facility]) [facility] (LUF/DAVID/SA) Body Temperature 2018-09-01 13:59:00 98 F [facility] (LUF/DAVID/SA) Pulse Rate 2018-09-01 12:15:00 74 /min [facility] (F/DAVID/SA) Respiratory Rate 2018-09-01 12:15:00 16 /min [facility] (F/DAVID/SA) O2% BldC Oximetry 2018-09-01 12:15:00 98 % [facility] (LUF/DAVID/SA) BP Systolic 2018-09-01 12:15:00 131 mm[Hg] [facility] (LUF/DAVID/SA) BP Diastolic 2018-09-01 12:15:00 78 mm[Hg] [facility] (LUF/DAVID/SA) Height 2018-09-01 09:16:00 64 in [facility] (F/DAVID/SA) Weight Measured 2018-09-01 09:16:00 214.24 lbs [facility] (LUF/DAVID/SA) BMI (Body Mass 2018-09-01 09:16:00 37 kg/m2 [facility]) [facility] (LUF/DAVID/SA) Body Temperature 2018-05-13 10:58:00 99 F [facility] (LUF/DAVID/SA) Pulse Rate 2018-05-13 10:58:00 97 /min [facility] (F/DAVID/SA) Respiratory Rate 2018-05-13 10:58:00 18 /min [facility] (F/DAVID/SA) O2% BldC Oximetry 2018-05-13 10:58:00 98 % [facility] (LUF/DAVID/SA) BP Systolic 2018-05-13 10:58:00 131 mm[Hg] [facility] (LUF/DAVID/SA) BP Diastolic 2018-05-13 10:58:00 88 mm[Hg] [facility] (F/DAVID/SA) Height 2018-05-13 10:58:00 64 in [facility] (F/DAVID/SA) Weight Measured 2018-05-13 10:58:00 207.23 lbs [facility] (LUF/DAVID/SA) BMI (Body Mass 2018-05-13 10:58:00 35.8 [facility]) [facility] (LUF/DAVID/SA) Body Temperature 2017-12-24 08:04:00 98.7 F [facility] (F/DAVID/SA) Respiratory Rate 2017-12-24 08:04:00 18 /min [facility] (F/DAVID/SA) O2% BldC Oximetry 2017-12-24 08:04:00 98 % [facility] (LUF/DAVID/SA) BP Systolic 2017-12-24 08:04:00 126 mm[Hg] [facility] (LUF/DAVID/SA) BP Diastolic 2017-12-24 08:04:00 86 mm[Hg] [facility] (F/DAVID/SA) Weight Measured 2017-12-24 08:04:00 207.23 lbs [facility] (F/DAVID/SA) Body Temperature 2017-06-20 23:28:00 97.4 F [facility] (F/DAVID/SA) Respiratory Rate 2017-06-20 23:28:00 20 /min [facility] ([facility]/DAVID/SA) O2% BldC Oximetry 2017-06-20 23:28:00 99 % [facility] (F/DAVID/SA) BP Systolic 2017-06-20 23:28:00 107 mm[Hg] [facility] (F/DAVID/SA) BP Diastolic 2017-06-20 23:28:00 76 mm[Hg] [facility] (F/DAVID/SA) Height 2017-06-20 23:28:00 64 in [facility] ([facility]/DAVID/SA) Weight Measured 2017-06-20 23:28:00 217.15 lbs [facility] (F/DAVID/SA) BMI (Body Mass 2017-06-20 23:28:00 37.5 [facility] (F/DAVID/SA) Procedures Procedure Date / Time Performing Clinician Source Performed POCT SARS-COV-2 ANTIGEN 2022-06-13 23:43:00 Magdalene Lucia [facility] (BINAX NOW) [facility] CT ABDOMEN PELVIS WO 2022-05-07 15:06:09 Ridge Pagan [facility] CONTRAST Medical Branch BASIC METABOLIC PANEL (NA, 2022-05-07 14:20:00 Ridge Pagan [facility] K, CL, CO2, GLUCOSE, BUN, Medica l Branch CREATININE, CA) CBC WITH DIFF 2022-05-07 14:20:00 Ridge Pagan [facility] URINALYSIS 2022-05-07 14:20:00 Ridge Pagan [facility] CONSENT/REFUSAL FOR 2022-05-07 13:49:51 [facility]REATMENT [place] [facility] CT ABDOMEN PELVIS WO 2022-02-19 15:49:34 Trice Harris [facility] LIPASE 2022-02-19 14:26:00 Trice Harris [facility] COMP. METABOLIC PANEL 2022-02-19 14:26:00 Trice Harris [facility] ([id number]) [facility] CBC WITH DIFF 2022-02-19 14:26:00 Trice Harris [facility] URINALYSIS 2022-02-19 14:26:00 Trice Harris [facility] CONSENT/REFUSAL FOR 2022-02-19 14:11:01 Doctor Unassroxana, [facility] DIAGNOSIS AND TREATMENT [place] [facility] POCT MOLECULAR FLU 2021-11-29 22:46:00 Ameena Preston [facility] INS INFUS DEV LT BASILIC 2020-03-15 00:00:[address] [facility] VN PERQ [facility] (LUF/DAVID/SA) ULTRASONOGRAPHY LT UP EXT 2020-03-15 00:00:[address] [facility] VNS GUID [facility] (LUF/DAVID/SA) ROBOTIC LAP LYSIS OF 2020-03-02 12:56:[address] [facility] ADHESIONS [facility] (LUF/DAVID/SA) LAPAROSCOPY ENTEROLYSIS 2020-03-02 00:00:[address] [facility] SEPARATE PROCEDU [facility] (LUF/DAVID/SA) COLONOSCOPY FLX DX W/COLLJ 2020-02-26 00:00:[address] [facility] SPEC WHEN PFR [facility] (LUF/DAVID/SA) ROBOTIC RIGHT OOPHORECTOMY 2019-03-21 17:09:[address] [facility] LUF (Right) [facility] (LUF/DAVID/SA) CYSTO RGP STENT PLACEMENT 2015-04-20 14:01:[address] [facility] LUF [facility] (LUF/DAVID/SA) CYSTO RGP STENT PLACEMENT 2015-04-20 14:01:[address] [facility] Hysterectomy [facility] (F/DAVID/SA) Total thyroidectomy [facility] (LUF/DAVID/SA) section [facility] (LUF/DAVID/SA) ABDOMINAL ADHESIONS [facility] REMOVED [facility] (LUF/DAVID/SA) Extracorporeal shockwave [facility] lithotripsy [facility] (F/DAVID/SA) MULTIPLE CYSTECTOMYS DONE [facility] (LUF/DAVID/SA) MULTIPLE CYSTECTOMYS DONE [facility] (LUF/DAVID/SA) ABDOMINAL ADHESIONS [facility] REMOVED [facility] (LUF/DAVID/SA) Appendectomy [facility] (F/DAVID/SA) Plan of Care Planned Activity Planned [...] Clinicians Facility Department ID 2021-07-27 Outpatient Nba, [facility] Common 08:27:02 Josué 0127 [facility] 2021-07-26 [facility] 14:20[facility]31 Josué 1203 [facility] 2021-07-26 [facility] 14:05:52 Josué 1027 [facility] 2021-07-26 [facility] 12:01:28 Josué 1103 [facility] 2021-07-26 Outpatient Nba, [facility] Common 11:56:42 Josué 1019 [facility] 2021-07-26 Outpatient Nba, [facility] Common 11:49:38 Josué 0928 [facility] 2021-07-26 Outpatient Nba, [facility] Common 11:48:02 Josué 0922 [facility] 2021-07-26 Outpatient Nba, [facility] Common 11:47:47 Josué 0921 [facility] 2021-07-26 Outpatient Nba, [facility] Common 11:42:15 Josué 0901 [facility] 2021-07-26 Outpatient Nba, [facility] Common 11:32:09 Josué 0720 [facility] 2022-07-22 2022-07-22 Outpatient FOG_Dunn_Wa AOSM AOSM [id number] Adelia 00:00:00 00:00:00 Jhon [id number] [facility] 2022-07-06 2022-07-06 Outpatient FOG_Dunn_Wa AOSM AOSM [id number] Adelia 00:00:00 00:00:00 Jhon [id number] [facility] 2022-06-17 2022-06-17 Outpatient FOG_Dunn_Wa AOSM AOSM [id number] Adelia 00:00:00 00:00:00 Jhon [id number] [facility] 2022-06-13 2022-06-13 Outpatient R SIRISHA [facility] [id number] Univers 17:20:00 17:41:53 MAGDALENE melo [facility] 2022-06-13 2022-06-13 Magdalene Kenyon [facility] [id number] Univers 17:20:00 17:41:53 Care Unknown, Attending [id number] [facility] [id number] Jacques as SUE?BLEA [phone] [address] 2022-06-13 2022-06-13 [facility] [id number] Univers 00:00:00 00:00:00 [facility] [id number] it y of [place] [id number] Jacques as SUE?BLEA [id number] [address] 2022-05-13 2022-05-13 Outpatient FOG_Ingrid_Wa AOSM AOSM [id number] Adelia 00:00:00 00:00:00 Jhon [id number] [facility] 2022-05-07 2022-05-07 Emergency X EJ [facility] ERT [id number] Univers 07:57:00 09:45:00 RIDGE [facility] 2022-05-07 2022-05-07 Emergency [facility] [id number] [facility] 07:57:00 09:45:00 Ridge GAONA [id number] i ty [facility] [id number] [id number] [address] 2022-05-07 2022-05-07 Outpatient SANTINO_Ingrid_Vita AOSM AOSM [id number] Adelia 00:00:00 00:00:00 Jhon [id number] [facility] 2022-04-23 2022-04-23 Emergency EM PACO Quintero [id number] [facility] 09:39:00 10:55:00 Truman [facility] 2022-02-19 2022-02-19 Emergency X STEVEN [facility] ERT [id number] Univers 09:15:00 11:05:00 TRICE melo [facility] 2022-02-19 2022-02-19 Emergency Steven [facility] [id number] Univers 09:15:00 11:05:00 Trice GAONA [id number] i ty of [place] [id number] [place] [facility] [phone] [facility] 084 Branch 2021-11-29 2021-11-29 [facility] [id number] Univers 17:40:00 18:00:00 Care [facility] [id number] it y of [place] [id number] Jacques as SUE?BLEA [id number] [place] [address] MEDICAL OFFICE BUILDING 2021-11-29 2021-11-29 [facility] [id number] Univers 17:40:00 17:40:00 [facility] 2021-11-29 2021-11-29 Outpatient [facility] [id number] Univers 17:40:00 17:40:00 [facility] 2021-10-26 2021-10-26 Office GEOVANI Blas 1.2.840.1 [id number] Univers 09:45:00 10:47:06 Visit Praveen 13382.1.1 ity of 3.412.2.7 [place] .3.424947 MD Diaz [facility] 2021-10-26 2021-10-26 Office Wan 1.2.840.1 [id number] Univers 09:45:00 10:47:06 Visit Praveen 80383.1.1 ity of 3.412.2.7 [place] .3.034404 MD Diaz [facility] 2021-10-26 2021-10-26 Travel 1.2.840.1 [id number] Univers 00:00:00 00:00:00 [id number] 350.1.13.41 ity of 3.412.2.7 2.[place]7.3.698 [place] .3.530059 084.8 MD Diaz [facility] 2021-10-26 2021-10-26 Travel 1.2.840.1 [id number] [id number] Univers 00:00:00 00:00:00 49831.1.1 350.1.13.41 ity of 3.412.2.7 2.[place].3.698 [place] .[id number] 084.8 .8 [facility] 2021-10-15 2021-10-15 LONI REYES EMD [id number] 22:25:00 22:45:00 CONSCIOUS EKTA Gamboa s SIMULATION Memor ia l (LUF/LI V/SA) 2021-10-15 2021-10-15 Inpatient [facility] [id number] [facility] 00:[facility] 00:00:00 DALE [phone] [facility], [phone] Memor ia [id number] [place] ([address], V/[place]) [place] [address] 2021-10-15 2021-10-15 Inpatient [facility] [id number] 00:[facility]00 00:00:00 DALE [phone] [facility], [phone] Memor ia [address] [id number] l [place] ([address], V/SA) [place] [address] 2021-08-29 2021-08-29 Outpatient Irwin CARRANZA [facility] [id number] Univers 16:20:00 16:20:00 PATRICK [facility] 2021-08-07 2021-08-07 Emergency CHASTITY [facility] [id number] [facility] 09:36:00 12:55:00 Olga 19 [facility] 2021-08-01 2021-08-02 Emergency [facility] [id number] Univers 22:00:00 01:17:00 LEANNE melo [facility] 2021-08-01 2021-08-02 Emergency [facility] [id number] Univers 22:00:00 01:17:00 Leanne GAONA [id number] i ty [facility] 4.2.7.2.686 [facility] [id number] [address] 2021-06-28 2021-06-28 Outpatient R SIRISHA [facility] [id number] Univers 17:30:00 17:30:00 MAGDALENE [facility] 2021-06-22 2021-06-22 Letter REHAN Chaves 1.2.840.114 [id number] Univers 00:00:00 00:00:00 (Out) Eve LEE [id number] it y of [facility] 4.2.7.2.686 Jacques as [phone] [facility] [address] [place] 2021-06-22 2021-06-22 Refill [facility] 1.2.840.114 [id number] Univers 00:00:00 00:00:00 Rania HEALTH [id number] it y of [place] 4.2.7.2.686 Jacques as SUE?BLEA [id number] [address] MEDICAL OFFICE [facility] 2021-06-21 2021-06-21 Outpatient R TERE [facility] [id number] Univers 11:00:00 12:14:12 PATRICK phoebe [facility] 2021-06-21 2021-06-21 [facility] 1.2.840.114 [id number] Univers 11:00:00 11:20:00 Care Mohan [facility] [id number] ity of [place] 4.2.7.2.686 Jacques as SUE?BLEA [phone] [address] MEDICAL OFFICE [facility] 2021-06-21 2021-06-21 Telephone [facility] [id number] Univers 00:00:00 00:00:00 [facility] [id number] it y of [place] 4.2.7.2.686 Jacques as SUE?BLEA [phone] [address] MEDICAL OFFICE [facility] 2021-06-21 2021-06-21 Letter Doctor VAN [id number] Univers 00:00:00 00:00:00 (Out) ROSA Mehta [id number] ity of [place] 4.2.7.2.686 Jacques as [phone] [place] [address] [address] 2021-05-30 2021-05-30 (TEL) STLMLC STLMLC [id number] Co mmon 00:00:00 00:00:00 [facility] 2021-05-29 2021-05-29 (TEL) STLMLC STLMLC [id number] Co mmon 00:00:00 00:00:00 [facility] 2021-04-26 2021-04-26 (TEL) STLMLC STLMLC [id number] Co mmon 00:00:00 00:00:00 [facility] 2021-04-23 2021-04-23 UNSPECIFIE 1 JANIA, STL EMD [id number] [facility] [address] 00:46:00 02:08:00 [facility] ABDOMINAL Memori a PAIN l (LUF/LI V/SA) 2021-04-23 2021-04-23 Inpatient [facility] [place] [address] [id number] [facility] [address] 00:00:00 00:00:00 DALE [id number] [facility], [id number] Memor ia [address] [id number] l [place] (LUF/LI AVE, V/SA) [place] [address] 2021-04-23 2021-04-23 Inpatient [facility] OF [facility] 6aab [id number] [facility] [address] 00:00:00 00:00:00 DALE [id number] [facility], [id number] Memor ia [address] [id number] l [place] (LUF/LI AVE, V/SA) [place] [address] 2021-03-24 2021-03-24 ANXIETY 1 COTTON, [facility] OF [facility] [id number] [facility] [address] 10:25:00 12:27:00 DISORDER REHAN [facility] UNSPECIFIE [place], Memor ia D [address] (LUF/LI A[address], V/SA) [place] [address] 2021-03-24 2021-03-24 Inpatient [facility] [facility] f871 cc2a-c [facility] 00:00:00 DALE 9aa-405b-9 [facility], [id number] Memor ia [address] cf90e3 l [place] (LUF/LI AVE, V/SA) [place] [address] 2021-03-24 2021-03-24 Inpatient [facility] OF [facility] e945 ff19-c [facility] 00:[facility]:00 00:00:00 DALE g49-2c20-i [facility], 88b-033ffa Memor ia [address] 683da2 l [place] (LUF/LI AVE, V/SA) [facility], [place] [address] 2021-03-23 2021-03-23 Orders Nofies, [id number] [facility] 00:00:00 00:00:00 Only Viktoriya Charlton 39489.1.1 ity of 3.412.2.7 [place] .3.065412 MD .8 [facility] 2021-03-10 2021-03-10 UTI SITE E [facility], [facility] 0100 [id number] [facility] 10:29:00 13:50:00 NOT [facility], [facility] [address] [place] (LUF/LI AVE, V/SA) [place] [address] 2021-03-10 2021-03-10 Inpatient [facility] OF [facility] 16e7 6598-b [facility] 00:[facility]:00 00:00:00 DALE d2k-0455-9 [facility], [id number]-[id number] Memor ia [address] 8ebb0b l [place] (LUF/LI AVE, V/SA) [place] [address] 2021-03-10 2021-03-10 Inpatient [facility] 518c 3339-c [facility] 00:[facility]:00 00:00:00 DALE n05-3ka0-4 [facility], d3m-8gk51j Memor ia [address] f904e5 l [place] (LUF/LI AVE, V/SA) [place] [address] 2021-02-23 2021-02-23 RIGHT E [facility] [id number] 08:15:00 12:44:00 LOWER [facility] PAIN [address] [place] (LUF/LI AVE, V/SA) [place] [address] 2021-02-23 2021-02-23 Inpatient [facility] 89b5 d1de-[address] 00:00:00 00:00:00 DALE 09f-406d-9 [facility], 74d-24f9de Memor ia [address] e8fcf1 l [place] (LUF/LI AVE, V/[place]) [place] [address] 2021-02-23 2021-02-23 Inpatient [facility] 8500 e20f-[address] 00:00:00 00:00:00 DALE 1ef-425c-a [facility], [id number]-[id number] Memor ia [address] 1655de l [place] (LUF/LI AVE, V/SA) [place] [address] 2021-01-10 2021-01-10 CALCULUS E JANIA, [facility] [id number] [facility] [address] 00:21:00 03:06:00 OF KIDNEY SETH [facility] [address] (LUF/LI AVE, V/SA) [place] [address] 2021-01-10 2021-01-10 Inpatient [facility] ff0d 2205-c [facility] 00:00:00 00:00:00 DALE b17-8p97-m [facility], 72a-11f6e9 [facility] [address] 3fb6a8 l [place] (LUF/LI AVE, V/SA) [place] [address] 2021-01-10 2021-01-10 Inpatient [facility] deee fe83-e [facility] 00:[facility]:00 00:00:00 DALE ff6-4d87-9 [facility], 32e-[id number] Memor ia [address] e09ed4 l [place] (LUF/LI AVE, V/SA) [place] [address] 2020-12-27 2020-12-27 Emergency [facility] Zarina [id number] Ideal 00:00:00 00:00:[address] 2020-12-22 2020-12-22 Outpatient 3 LONI MURILLO TIC [id number] 09:00:00 09:00:00 SKYE lucia Memoria l (LUF/LI V/SA) 2020-12-13 2020-12-13 Emergency EM ERNIE PerezW [facility] [id number] [facility] 01:53:00 06:36:00 Tangela 55 [facility] 2020-12-12 2020-12-12 RIGHT Jake COTTON, [facility] [address] 12:33:00 14:00:00 [facility], Memoria PAIN [address] (LUF/LI AVE, V/SA) [place] [address] 2020-12-12 2020-12-12 Inpatient M[facility] e2c0 cb47-b [facility] 00:00:00 00:00:00 DALE 82f-45d0-a [facility], 13e-0f9f6d Memor ia [address] [id number] l [place] (LUF/LI AVE, V/SA) [place] [address] 2020-12-12 2020-12-12 Inpatient [facility] 43ed f7fe-[address] [facility] 00:00:00 00:00:00 DALE m06-82uv-m [facility], [id number] Memor ia [address] 70ade3 l [place] (LUF/LI AVE, V/SA) [place] [address] 2020-12-08 2020-12-08 UNSPECIFLUC SOTOMAYOR, [facility] [id number] 09:44:00 12:26:00 D [facility], Memori a PAIN [address] (LUF/LI AVE, V/SA) [place] [address] 2020-12-08 2020-12-08 Inpatient [facility] 6a3f a794-a [facility] 00:00:00 00:00:00 DALE 1e2-9j60-8 [facility], [id number] Memor ia [address] 9973a7 l [place] (LUF/LI AVE, V/SA) [place], [place] [address] 2020-11-25 2020-11-25 UNSPECIFIE MMC OF [facility] [id number] 00:13:00 00:30:00 D [facility] [place], Memori a PAIN [address] [place] (LUF/LI AVE, V/SA) [place] [address] 2020-11-25 2020-11-25 Inpatient [facility] 3041 db6a-[address] 00:00:00 00:00:00 DALE fb6-4754-b [facility], [id number] Memor ia [address] 841f4f l [place] (LUF/LI AVE, V/[place]) [place] [address] 2020-11-25 2020-11-25 Inpatient [facility] a3eb ed11-a [facility] 00:00:00 00:00:00 DALE w76-0oo6-2 [facility], [id number] Memor ia [address] ea5dda l [place] (LUF/LI AVE, V/SA) [place] [address] 2020-11-21 2020-11-21 ENDOMETRIO 1 [facility] [id number] 07:14:00 09:53:00 SIS [facility] U[place]PECIFIE [place], Memor ia D [address] [place] (LUF/LI AVE, V/SA) [place] [address] 2020-11-21 2020-11-21 Inpatient [facility] 90f0 278b-[address] 00:00:00 00:00:00 DALE 8v8-03yo-0 [facility], 4bb-5eeded Memor ia [address] 9a1094 l [place] (LUF/LI AVE, V/SA) [place] [address] 2020-11-21 2020-11-21 Inpatient [facility] 3b21 9c7a-[address] 00:00:00 00:00:00 DALE 30a-405e-8 [facility], [id number] Memor ia [address] 3040c4 l [place] (LUF/LI A[address], V/SA) [place] [address] 2020-11-14 2020-11-[address] [facility] [id number] 09:27:00 14:37:00 UNS REHAN lucia WITHOUT Memoria BLEEDING l (LUF/LI V/SA) 2020-11-14 2020-11-14 Inpatient [facility] d4fe d3e2-[address] [facility] 00:00:00 00:00:00 DALE 3cf-4b7a-a [facility], 2ad-d46ca7 Memor ia [address] 2d56cc l [place] (LUF/LI AVE, V/SA) [place] [address] 2020-11-14 2020-11-14 Inpatient [facility] 324e 65b9-b [facility] 00:00:00 00:00:00 DALE 464-403c-8 [facility], [id number] Memor ia [address] f7114h l [place] (LUF/LI AVE, V/SA) [place] [address] 2020-11-08 2020-11-08 OTHER E YURY, [facility] 82142 [address] [facility] 08:04:00 13:13:00 CHRONIC REHAN DALE Isra [facility], Memoria [address] [place] (LUF/LI AVE, V/SA) [place], [place] [address] 2020-11-08 2020-11-08 Inpatient M[facility] OF [facility] 8079 b52c-c [facility] 00:00:00 00:00:00 DALE ed8-4ae3-8 [facility], [id number] Memor ia [address] cf6d84 l [place] (LUF/LI AVE, V/SA) [place] [address] 2020-11-08 2020-11-08 Inpatient [facility] 0f07 dc59-[address] 00:00:00 00:00:00 DALE 292-4184-b [facility], 8ff-44cd4a Memor ia [address] d1bfd4 l [place] (LUF/LI AVE, V/SA) [place] [address] 2020-11-08 2020-11-08 Inpatient [facility] 40b4 e14c-[address] 00:00:00 00:00:00 DALE 784-40e4-9 [facility], [id number] Memor ia [address] 29ea9a l [place] (LUF/LI AVE, V/SA) [place] [address] 2020-11-01 2020-11-01 NAUSEA E WANDA, [facility] [address] 00:27:00 03:55:00 WITH CLEMENT [facility] UNSPECIFIE [address] D [place] (LUF/LI AVE, V/SA) [place] [address] 2020-11-01 2020-11-01 Inpatient [facility] OF [facility] 1ec3 64c1-c [facility] 00:00:00 00:00:00 DALE p97-8xrq-y [facility], 85a-a5847d Memor ia [address] x6974t l [place] (LUF/LI AVE, V/SA) [place] [address] 2020-11-01 2020-11-01 Inpatient [facility] 79c0 b023-[address] 00:00:00 00:00:00 DALE 3g1-693n-a [facility], [id number]-[id number] Memor ia [address] 783eec l [place] (LUF/LI AVE, V/SA) [place] [address] 2020-10-04 2020-10-05 OTHER E SANANAVDEEP, [facility] [address] 23:32:00 01:00:00 CHRONIC JUAN [facility], [facility] [address] [place] (LUF/LI AVE, V/SA) [place] [address] 2020-10-04 2020-10-04 Inpatient [facility] b016 f3f5-a [facility] 00:00:00 00:00:00 DALE 0s6-2q0m-q [facility] 67e-[id number] Memor ia [address] bb93d3 l [place] (LUF/LI AVE, V/SA) [place] [address] 2020-10-04 2020-10-04 Inpatient [facility] ea96 0c7a-[address] 00:00:00 00:00:00 DALE 25c-4997-b [facility], a53-[id number] Memor ia [address] 1f27e6 l [place] (LUF/LI AVE, V/SA) [place] [address] 2020-09-18 2020-09-18 OTHER E [facility] [id number] [address] 01:00:00 04:44:00 CHRONIC [facility], [facility] [address] (LUF/LI AVE, V/SA) [place] [address] 2020-09-18 2020-09-18 Inpatient [facility] b80a 7ee5-[address] 00:00:00 00:00:00 DALE 6a1-765r-0 [facility], [id number] Memor ia [address] [id number] l [place] (LUF/LI A[address], V/SA) [place] [address] 2020-09-18 2020-09-18 Inpatient [facility] OF [facility] 1a33 0198-a [facility] 00:00:00 00:00:00 DALE 921-44cf-8 [facility], [id number] Memor ia [address] 848124 l [place] (LUF/LI AVE, V/SA) [place] [address] 2020-09-12 2020-09-12 ENDOMETRIO E KOSCIUK, [facility] [id number] [facility] 00:46:00 02:38:00 SIS JUAN [facility] [place], Memor ia D [address] [place] (LUF/LI AVE, V/SA) [place] [address] 2020-09-12 2020-09-12 Inpatient [facility] 726d 153b-a [facility] 00:00:00 00:00:00 DALE p9l-3625-6 [facility], [id number] Memor ia [address] 2913af l [place] (LUF/LI A[address], V/SA) [place] [address] 2020-09-12 2020-09-12 Inpatient [facility] 9a2d b59c-c [facility] 00:00:00 00:00:00 DALE 607-4f36-8 [facility], 7s2-5562ai Memor ia [address] 655cce l [place] (LUF/LI AVE, V/[place]) [place] [address] 2020-08-22 2020-08-22 OTHER E RODRICK, [facility] [address] 01:13:00 03:24:00 CHRONIC [facility], Memoria [address] [place] ([address]F/LI A[address], V/SA) [place] [address] 2020-08-22 2020-08-22 Inpatient [facility] 7a1d d2a9-[address] 00:00:00 00:00:00 DALE 050-4a19-8 [facility], 62e-7ef55a Memor ia [address] 6eae2a l [place] (LUF/LI AVE, V/SA) [place] [address] 2020-08-22 2020-08-22 Inpatient [facility] 53d3 2542-f [facility] 00:00:00 00:00:00 DALE 72a-4479-9 [facility], 7da-c14e55 Memor ia [address] 284d1a l [place] (LUF/LI AVE, V/SA) [place] [address] 2020-08-06 2020-08-06 Inpatient Jake MENSAH, [facility] [id number] 01:21:00 03:35:00 [facility], [facility] [address] [place] (LUF/LI A[address], V/SA) [place] [address] 2020-08-06 2020-08-06 Inpatient [facility] 07b7 067c-a [facility] 00:00:00 00:00:00 DALE 7s5-8vj2-8 [facility], [id number] Memor ia [address] 4f7e15 l [place] (LUF/LI A[address], V/SA) [place] [address] 2020-07-19 2020-07-19 RIGHT Jake COTTON, [facility] [place] [address] 07:50:00 11:20:00 LOWER [facility], Memoria PAIN [address] [place] (LUF/LI AVE, V/SA) [place] [address] 2020-07-19 2020-07-19 Inpatient [facility] 625d 6050-c [facility] 00:00:00 00:00:00 DALE 92c-4e48-9 [facility], fb2-aa7c63 Memor ia [address] [id number] l [place] (LUF/LI A[address], V/SA) [place] [address] 2020-07-19 2020-07-19 Inpatient [facility] 0f28 5684-[address] 00:00:00 00:00:00 DALE bbb-4c99-b [facility], 7cf-[id number] Memor ia [address] ca6e76 l [place] (LUF/LI AVE, V/SA) [place] [address] 2020-07-05 2020-07-05 OTHER E SANALETA, [facility] [address] 02:42:00 05:00:00 CHRONIC JUAN [facility], [facility] [address] [place] (LUF/LI A[address], V/SA) [place] [address] 2020-07-05 2020-07-05 Inpatient [facility] 525e 4189-f [facility] 00:00:00 00:00:00 DALE bff-495f-b [facility], a60-5682tt Memor ia [address] 7ec68b l [place] (LUF/LI AVE, V/SA) [place] [address] 2020-07-05 2020-07-05 Inpatient [facility] c54b 2c2e-e [facility] 00:00:00 00:00:00 DALE 987-4ea3-9 [facility], 2u2-3d47o6 Memor ia [address] [id number] l [place] ([address]F/LI [place], V/[place]) [place] [address] 2020-06-10 2020-06-10 (TEL) STLMLC STLMLC [id number] Co mmon 00:00:00 00:00:00 [facility] 2020-06-07 2020-06-07 Inpatient 1 YURY, [facility] [place] [id number] [facility] 12:56:00 19:04:00 [facility] [address] (LUF/LI [place], V/SA) [place] [address] 2020-06-07 2020-06-07 Inpatient [facility] [place] 724143 9727-e [facility] 00:00:00 00:00:00 DALE aaa-4da7-9 [facility], [id number] Memor ia [address] 1139d5 l [place] (LUF/LI AVE, V/SA) [place] [address] 2020-05-31 2020-05-31 Inpatient E COTTON, [facility] [place] [id number] 09:31:00 14:13:00 [facility] [address] (LUF/LI AVE, V/SA) [place] [address] 2020-05-10 2020-05-10 Outpatient STLMLC STLMLC [id number] Common 00:00:00 00:00:00 [facility] 2020-05-09 2020-05-09 Outpatient STLMLC STLMLC [id number] Common 00:00:00 00:00:00 [facility] 2020-05-05 2020-05-05 Outpatient STLMLC STLMLC [id number] Common 00:00:00 00:00:00 [facility] 2020-05-02 2020-05-02 Outpatient STLMLC STLMLC [id number] Common 00:00:00 00:00:00 [facility] 2020-05-02 2020-05-02 Outpatient STLMLC STLMLC [id number] Common 00:00:00 00:00:00 [facility] 2020-04-29 2020-04-29 Outpatient STLMLC STLMLC [id number] Common 00:00:00 00:00:00 [facility] 2020-04-25 2020-04-25 LEFT LOWER E [facility] [id number] 16:46:00 21:30:00 QUADRANT [facility] [address] [place] ([address]F/LI A[address], V/SA) [place] [address] 2020-04-22 2020-04-22 Outpatient STLMLC STLMLC [id number] Common 00:00:00 00:00:00 [facility] 2020-04-20 2020-04-20 PROC&TX [facility] [id number] 15:39:00 16:03:00 NOT [facility] CARRIED [facility] OUT PT [address] [place]AVE [place] (LUF/LI AVE, V/SA) [place] [address] 2020-04-20 2020-04-20 Outpatient STLMLC STLMLC [id number] Common 00:00:00 00:00:00 [facility] 2020-04-20 2020-04-20 Outpatient STLMLC STLMLC [id number] Common 00:00:00 00:00:00 [facility] 2020-04-15 2020-04-15 Outpatient STLMLC STLMLC [id number] Common 00:00:00 00:00:00 [facility] 2020-04-13 2020-04-13 Outpatient STLMLC STLMLC [id number] Common 00:00:00 00:00:00 [facility] 2020-04-12 2020-04-12 Outpatient STLMLC STLMLC [id number] Common 00:00:00 00:00:00 [facility] 2020-04-11 2020-04-11 Outpatient STLMLC STLMLC [id number] Common 00:00:00 00:00:00 [facility] 2020-04-08 2020-04-08 Outpatient STLMLC STLMLC [id number] Common 00:00:00 00:00:00 [facility] 2020-04-06 2020-04-06 Outpatient STLMLC STLMLC [id number] Common 00:00:00 00:00:00 [facility] 2020-04-04 2020-04-04 Outpatient STLMLC STLMLC [id number] Common 00:00:00 00:00:00 [facility] 2020-03-31 2020-03-31 Outpatient STLMLC STLMLC [id number] Common 00:00:00 00:00:00 [facility] 2020-03-29 2020-03-29 Outpatient GEOVANI [facility] [id number] MD 00:00:00 00:00:00 PRAVEEN payton 2020-03-29 2020-03-29 Outpatient STLMLC STLMLC [id number] Common 00:00:00 00:00:00 [facility] 2020-03-28 2020-03-28 Outpatient STLMLC STLMLC [id number] Common 00:00:00 00:00:00 [facility] 2020-03-22 2020-03-22 Outpatient STLMLC STLMLC [id number] Common 00:00:00 00:00:00 [facility] 2020-03-21 2020-03-21 Outpatient STLMLC STLMLC [id number] Common 00:00:00 00:00:00 [facility] 2020-03-20 2020-03-20 FEDE COTTON, [facility] [id number] 17:08:00 22:56:00 ABDOMINAL REHAN DALE Lu s PAIN [facility] UNSPECIFIE [address] D [place] (LUF/LI AVE, V/SA) [place] [address] 2020-03-14 2020-03-17 CELLULITIS E RIVERA, [facility] [id number] 14:54:00 11:30:00 OF ISLAM DALE Luke s [place]AL [place], [facility] a WALL [address] [place] (LUF/LI AVE, V/SA) [place] [address] 2020-03-03 2020-03-03 Outpatient [place] [id number] Common 13:33:00 13:33:00 Clinics [facility] 2020-03-02 2020-03-02 FE RYAN WOLFE, [facility] [id number] [facility] [address] 05:58:00 15:35:00 PERITON LIZBETH [facility] POSTINFECT [address] KIERAN [address] (LUF/LI AVE, V/SA) [place] [address] 2020-03-02 2020-03-02 [facility] [id number] Common 00:00:00 00:00:00 [facility] 2020-03-01 2020-03-01 Outpatient [place] [id number] Common 09:15:00 09:15:00 [facility] 2020-02-29 2020-02-29 Outpatient [place] [id number] Common 09:30:00 09:30:00 [facility] 2020-02-25 2020-02-27 LOWER E YURY, [facility] [place] [id number] [facility] 13:21:00 12:09:00 ABDOMINAL [facility] UNSPECIFIE [address], V/SA) [place] [address] 2020-02-25 2020-02-25 UNSPECIFIE E RODRICK, [facility] [id number] [facility] 00:40:00 05:00:00 [facility] PAIN [address] ([address], V/SA) [place] [address] 2020-01-25 2020-01-25 LOW BACK 1 COTTON, [facility] [id number] [facility] 11:28:00 13:15:00 PAIN REHAN [facility] [address] ([address], V/SA) [place] [address] 2020-01-18 2020-01-18 Outpatient [place] [id number] Common 11:45:00 11:45:00 [facility] 2019-12-09 2019-12-09 OTHER E [facility] OF [facility] [id number] 03:03:00 05:08:00 CHRONIC DALE [facility] PAIN [place], [facility] [address], V/SA) [place] [address] 2019-11-24 2019-11-24 UNSPECIFIE E [facility] [id number] 00:31:00 05:30:00 D DALE [facility] ABDOMINAL [place], [facility]ori a PAIN [address] ([address], V/SA) [place] [address] 2019-10-07 2019-10-07 RIGHT 1 YURY, [facility] [place] [id number] 20:35:00 23:10:00 LOWER [facility] [place] [address] ([address], V/SA) [place] [address] 2019-09-20 2019-09-20 RIGHT 1 YURY, [facility] [place] [id number] [facility] [address] 00:33:00 04:23:00 LOWER [facility] [place], [facility] PAIN [address] ([address], V/SA) [place] [address] 2019-08-17 2019-08-17 UNSPECIFIE 1 TRUX, [facility] [id number] 02:18:00 04:45:00 D ISLAM DALE Lu s ABDOM[place]AL [place], [facility] a PAIN [address] ([address], V/SA) [facility], [place] [address] 2019-04-22 2019-04-22 Outpatient [place] [id number] Common 12:03:00 12:03:00 Clinics [facility] 2019-04-14 2019-04-14 Outpatient [place] [id number] Common 16:12:00 16:12:00 Clinics [facility] 2019-04-06 2019-04-06 Outpatient [place] [id number] Common 12:16:00 12:16:00 Clinics [facility] 2019-03-31 2019-03-31 Outpatient [place] [id number] Common 14:00:00 14:00:00 Clinics [facility] 2018-12-07 2018-12-07 UNSPECIFIE 1 QUINTIN BRITO [facility] OF [facility] [id number] [facility] 01:06:00 04:45:00 D OVARIAN DALE Luke s CYST RIGHT [facility] ia SIDE [address] ([address], V/SA) [place] [address] 2018-10-29 2018-10-29 N-PRSS CHR BLALUCIATAD, [facility] [id number] [facility] 06:59:00 23:59:00 ULCR SKIN MIKY [facility] [address] ([address], V/SA) [facility] [place] [address] 2018-10-22 2018-10-22 N-PRSS CHR BLAKEST[place], [facility] [id number] [facility] 07:20:00 23:59:00 ULCR SKIN MIKY [facility] [address] ([address], V/SA) [facility] [place] [address] 2018-10-15 2018-10-15 N-PRSS CHR O BLAKEST[place], [facility] [id number] [facility] 07:08:00 23:59:00 ULCR SKIN MIKY [facility] [address] (LUF/LI AVE, V/SA) [place] [address] 2018-09-30 2018-10-01 INFCT FOL 1 SHABNAM, [facility] [id number] [facility] 18:46:00 01:05:00 PRC SUPF DIMAS D[facility] SIT INIT [address] ([address], V/SA) [facility], [place] [address] 2018-09-01 2018-09-01 OTH 1 WANDA, [facility] [place] [id number] [facility] 09:12:00 14:00:00 NONINFL CLEMENT [facility] D/O OVARY [place], Memori a TUBE&BRD [address] (LUF/LI A[address], V/SA) [place] [address] 2018-05-13 2018-05-13 Inpatient 1 WANDA, [facility] [place] [id number] 10:52:00 13:46:00 CLEMENT [facility], Memoria [address] ([address]F/LI A[address], V/SA) [place] [address] 2017-12-24 2017-12-24 UNSPECIFIE 1 DARYL QUINTIN [facility] [place] [id number] [facility] 07:51:00 13:52:00 D OVARIAN [facility] CYST RIGHT [place], [facility] SIDE [address] ([address], V/SA) [place] [address] 2017-06-20 2017-06-21 HYDRONPHRO 1 RODRICK, [facility] [place] [id number] 23:01:00 03:55:00 S JUAN [facility] RENL&URETR [place], [facility] L CALCUL [address] ([address]F/LI A[address], V/SA) [place] [address] 2017-05-13 2017-05-13 OTHER 3 MERLE, [facility] [place] [id number] 15:40:00 23:59:00 FATIGUE ASA [facility], [facility] [address] ([address], V/SA) [place] [address] Results Test Description Test Time Test Comments Results Result Comments Source POCT SARS-COV-2 ANTIGEN (BINAX NOW) 2022-06-13 23:43:00 Test Item Value Reference Range Interpretation Comme nts POCT SARS-COV-2 ANTIGEN (test code = 98575-6) Positive Not Dete cted A On board controls acceptable with C Line (test code = 3574) Yes Lab Interpretation (test code = 43666-8) Abnormal [facility]- XR SHOULDER 2 + V [id number] 16:42:00 [facility] : 1985 Sex: F Patient Name: LAUREN BETH Unit No: [id number] EXAMS: CPT CODE: [id number] XR SHOULDER 2 + [place] [address] Left shoulder 3 views COMMENT: There is no evidence for fracture or subluxation. No focal bony lesions are seen. at 1642 Reported and signed by: Angelo Hardin MD CC: Truman Quintero MD Technologist: RT Reji.(R) TranscribedD/ (1641) SvitlanaL [facility] NAME: LAUREN BETH [address] [place] [address] PHYS: Truman Alfaro MD : 1985 AGE: 36 SEX: F [place] [address] : [place]NNIE PHONE #: [phone] EXAM DATE: 04/23/2022 STATUS: DEP FAX #: [phone] RAD #: D/C DT PAGE 1 Signed Report Patient Name: LAUREN BETH Unit No: [id number] EXAMS: CPT CODE: [id number] XR SHOULDER 2 + [place] LT [address] (Continued) Orig Print D/T: S: 04/23/2022 (1644) [facility] NAME: LAUREN BETH [address] [facility] PHYS: Truman Alfaro MD : 1985 AGE: 36 SEX: F [place] [address] LOC: J[place]NNIE PHONE #: [phone] EXAM DATE: 04/23/2022TATUS: [facility]I ER FAX #: [phone] RAD #: D/C DT PAGE 2 Signed Report COMP. METABOLIC PANEL (35620)2022-02-19 14:56:05 Test Item Value Reference Range Interpretation Comments NA (test code = 137 mmol/L 135-145 4039306822) K (test code = 4.2 mmol/L 3.5-5 1680820660) CL (test code = 108 mmol/L 98-108 0748206543) CO2 TOTAL (test code = 19 mmol/L 23-31 L 2029064399) AGAP (test code = 2-16 7916379620) BUN (test code = 14 mg/dL 7-23 7003622087) GLUCOSE (test code = 133 mg/dL 70-110 H 7053523140) CREATININE (test code = 0.56 mg/dL 0.5-1.04 7161363098) TOTAL BILI (test code = 0.4 mg/dL 0.1-1.3 2424890105) CALCIUM (test code = 8.9 mg/dL 8.6-10.6 9601706251) T PROTEIN (test code = 6.5 g/dL 6.3-8.2 8787786215) ALBUMIN (test code = 4.0 g/dL 3.5-5 3027938613) ALK PHOS (test code = 84 U/L 34-122 5467818498) ALTv (test code = 23 U/L 5-35 1742-6) AST(SGOT) (test code = 24 U/L 13-40 1270837312) eGFR (test code = mL/min/1.73m2 0140309863) RENZO (test code = RENZO) Association of [...] tests). Lab Interpretation Abnormal (test code = 11026-4) [facility] 14:55:44 Test Item Value Reference Range Interpretation Comments LIPASE (test code = 3070090762) 81 U/L 0-220 Lab Interpretation (test code = Normal 46671-1) [facility] WITH [id number] 14:36:26 Test Item Value Reference Range Interpretation Comments WBC (test code = See_Comment [Automated 9754-2) message] The sy stem which generated this result transmitted reference range : 4.30 - 11.10 10*3/?L. The reference range was not used to interpret this result as normal/abnormal . RBC (test code = See_Comment [Automated 248-2) message] The sy stem which generated this [...] RDW-SD (test code = 43.9 fL 39-49.9 01624-3) RDW-CV (test code = 13.7 % 12-15.5 788-0) PLT (test code = See_Comment [Automated 777-3) message] The sy stem which generated this result transmitted reference range : 166 - 358 10*3/ ?L. The reference r bruce was not used to interpret this result as normal/abnormal . MPV (test code = 8.5 fL 9.5-12.9 L 68387-2) NRBC/100 WBC (test See_Comment [Automat ed code = 0835509232) message] The system which generated this result transmitted reference range : 0.0 - 10.0 /100 WBCs. The refer ence range was not u sed to interpret th is result as normal/abnormal . NRBC x10^3 (test code See_Comment [Auto mated = 1345357177) message] The s ystem which generated this result transmitted reference range : 10*3/?L. The reference range was not used to interpret this result as normal/abnormal . GRAN MAT (NEUT) % 58.7 % (test code = 770-8) IMM GRAN % (test code 1.10 % = 1644943133) LYMPH % (test code = 31.6 % 736-9) MONO % (test code = 6.8 % 5905-5) EOS % (test code = 1.4 % 713-8) BASO % (test code = 0.4 % 706-2) GRAN MAT x10^3(ANC) 3.30 10*3/uL 1.88-7.09 (test code = 5202102363) IMM GRAN x10^3 (test 0.06 10*3/uL 0-0.06 code = 5712823673) LYMPH x10^3 (test code 1.77 10*3/uL 1.32-3.29 = 731-0) MONO x10^3 (test code 0.38 10*3/uL 0.33-0.92 = 742-7) EOS x10^3 (test code = 0.08 10*3/uL 0.03-0.39 711-2) BASO x10^3 (test code 0.01-0.07 = 704-7) Lab Interpretation Abnormal (test code = 02952-8) [facility] [id number] 22:58:14 Test Item Value Reference Range Interpretation Comments POCT Molecular FluA (test code = Negative Negative 40960-2) POCT Molecular FluB (test code = Negative Negative 06687-4) Lab Interpretation (test code = Normal 09769-0) [facility] PAN[facility] (LIVER)2021-10-16 13:57:00 Test Item Value [...] (test code = 0.2 mg/dl 0.0-1.1 IBIL) [id number] 13:57:00 Test Item Value Reference Range Interpretation Comments Lipase (test code = LIPA) 114 U/L 73-393 STLMLAMYLASE, [id number] 13:57:00 Test Item Value Reference Range Interpretation Comments Amylase (test code = AMYL) 51 U/L 25-115 STLMLSTAT LAB CHEM [id number] 22:45:00 Test Item Value Reference Range Interpretation [...] code = CO2) 22.1 mmol/l 24.0-29.0 L STLSTAT LAB CBC WITH AUTO [id number] 22:43:00 Test Item Value Reference Range Interpretation [...] = IG%) 0.2 % 0.0-0.4 STLMLHEPATIC FUNCTION [id number] 13:03:00 Test Item Value Reference Range Interpretation [...] 96 Unit/L 45-117 N code = ALKP) [id number] 13:03:00 Test Item Value Reference Range Interpretation Comments LIPASE (test code = LIP) 83 Unit/L 114-286 L BASIC METABOLIC [id number] 13:03:00 Test Item Value Reference Range Interpretation [...] 8.5-10.1 N UA RFLX MICR CULT IF [id number] 12:44:00 Test Item Value Reference Range Interpretation [...] OF URINE: CLEAN CATCH- CT ABD PELVIS [id number] 12:27:00 [facility] : 1985 Sex: F Name: LAUREN BETH [facility] : 1985 Age/S: 36 / F [address] Unit #: [id number]: Julián Holcomb [address] Phys: Marco Hilton NP Acct: [id number] Dis Date: Status: REG ER PHONE #: [phone] Exam Date: 08/07/2021 1223 FAX #: Reason: LLQ ABD PAIN EXAMS: CPT: [id number] CT ABD PELVIS W/CONT 48201 EXAM: CT ABDOMEN AND PELVIS WITH CONTRAST. [...] Report (CONTINUED) Name: LAUREN BETH [facility] : 1985 Age/S: 36 / F [address] Unit #: [id number] Loc: [place] [address] Phys: Marco Hilton NP Acct: [id number] Dis Date: Status: REG ER PHONE #: [phone] Exam Date: 08/07/2021 1223 FAX #: Reason: LLQ ABD PAIN EXAMS: CPT: [id number] CT ABD PELVIS W/CONT 57893 &lt ;Continued> at 1227 Reported and signed by: Alma Cartwright M.D. CC: Olga Clements DO; Marco Hilton NP Technologist:RT Danyelle(R) CTDI: DLP: Trnscb Date/Time: 08/07/2021 (1227) 16 Orig Print D/T: S: 08/07/2021 (0341) PAGE 2 [facility] W/AUTO [id number] 12:23:00 Test Item Value Reference Range Interpretation [...] contact the [facility] at [phone]. [id number] 12:37:00 Test Item Value Reference Range Interpretation [...] 0.5-1.3 code = CREA) EGFR if >60 [place] (test code mL/min/1.73m\\ = EGFRAA) S\\2 EGFR if Non- >60 Estimate d Glomerular [place] (test code mL/min/1.73m\\ Filtrat ion Rate (eGFR) [...] and management of c hronic kidney failure. [facility] [id number] 12:11:00 Test Item Value Reference Range Interpretation Comments Troponin-I (test 0.00 ng/ml 0.00-0.08 The 99th Pe rcentile URL is code = TROP) 0.08 ng/mL for the Johnson iStat Troponin I. The Joint Society of Cardiology/[facility] College of Card iology (ESC/ACC) and [facility] Academy of Clin ica Biochemistry St andards of Laboratory Prac tices [...] after the clini felipa event. STLMLPT AND [id number] 12:09:00 Test Item Value Reference Range Interpretation Comments Protime (test code 9.5 seconds 9.5-12.1 = PT) INR (test code = 0.9 0.9-1.1 INR results are intended INR) ONLY to monitor Oral Anticoagulant t herapy in stablized patie nts. The INR Therapeutic Range is 2.0 - 3.0 Patie nts with a mechanical he art, the INR Range is 2. 5 - 3.5 [id number] 12:09:00 Test Item Value Reference Range Interpretation Comments aPTT (test code = PTT) 22.3 seconds 23.9-30.7 L [facility] LAB CBC WITH AUTO [id number] 11:57:00 Test Item Value Reference Range Interpretation [...] 0.3 % 0.0-0.4 STLMLXR CHEST AP/PA 1 [id number] 11:33:32 [facility]/SA)Name: LAUREN BETH : 1985 Sex: FProcedure: XR CHEST AP/PA 1 VIEWOrder Date: 03/24/2021 10:57 AMOrdering Provider: REHAN COTTONClinical Indication: [id number]: DyspneaComparison: September 30, 2018Findings:Cardiac size is normal.Pulmonary vasculature is normal.Mediastinal contour is normal.Aortic contour is normal.No acute infiltrates or effusions.There is no mass or pneumothorax.There is no evidence of active tuberculosis.There isno acute skeletal abnormality.Impression: Negative AP view of the chest.This final report was electronically signed by Dr Farzad Dewitt MD :28 AMDictated By: FARZAD DEWITTDate: :28STLMLCULTURE, [id number] 08:00:00Specimen: Urine SpecimensCollected: 03/10/2021 11:50 Status: Final [...] code = NEGATIVE NEGATIVE N UKET) Specific Slick 1.015 1.005-1.030 A (test code = USPGR) Blood (test code = NEGATIVE NEGATIVE N UBLD) PH (test code = UPH) 7.0 4.5-8.0 A Protein (test code = NEGATIVE NEGATIVE N UPROT) Urobilinogen (test 0.2 See_Comment N [Automat ed message] code = U UROB) The system tripJane generated this result transmit michael reference range [...] = NSE) STLMLSTAT LAB CBC WITH AUTO [id number] 12:10:00 Test Item Value Reference Range Interpretation [...] code = IG%) 0.8 % 0.0-0.4 H STLSTAT LAB CHEM [id number] 12:08:00 Test Item Value Reference Range Interpretation [...] = CREA) 0.5 mg/dl 0.6-1.3 L STLMLCULTURE, [id number] 08:26:00Specimen: Urine SpecimensCollected: 02/23/2021 08:35 Status: Final Last Updated: 02/24/2021 08:26 CULTURE (Final) (Final) Many Mixed Body Gabriela Isolated No Pathogens IsolatedSTLMLCT ABDOMEN/PELVIS W/[id number] 11:40:43 NANCY [facility] ([facility]/SA)Name: LAUREN BETH : 1985 Sex: FProcedure: CT ABDOMEN/PELVIS W/CONTRASTOrder date: 02/23/2021 10:08 AMOrdering Provider: REHAN Farrellinical Indication: [id number]: Right lower quadrant painComparison: November 14, 2020Technique: [...] Wiley Velázquez MD 111:35 AMDictated By: WILEY VELÁQZUEZDate: 02/23/2021 11:[id number] 10:44:00 Test Item Value Reference Range Interpretation Comments Lipase (test code = LIPA) 86 U/L 73-393 STLMLURINALYSIS WITH [id number] 08:58:00 Test Item Value Reference Range Interpretation Comments Color (test code = Light-Yellow UCOLR) Clarity (test code = Clear UCLAR) Glucose (test code = NEGATIVE NEGATIVE N UGLUC) Bilirubin (test code NEGATIVE NEGATIVE N = UBILI) Ketones (test code = NEGATIVE NEGATIVE N UKET) Specific Slick 1.020 1.005-1.030 A (test code = USPGR) Blood (test code = NEGATIVE NEGATIVE N UBLD) PH (test code = UPH) 6.0 4.5-8.0 A Protein (test code = NEGATIVE NEGATIVE N UPROT) Urobilinogen (test 0.2 See_Comment N [Automat ed message] code = U UROB) The system [employer] generated this result transmit michael reference range [...] = SQEP) STLMLSTAT LAB CBC WITH AUTO [id number] 08:52:00 Test Item Value Reference Range Interpretation [...] (test code = IG%) 0.3 % 0.0-0.4 [facility] LAB CHEM [id number] 08:52:00 Test Item Value Reference Range Interpretation [...] (test code = CREA) 0.6 mg/dl 0.6-1.3 [facility] LAB CBC WITH AUTO [id number] 02:37:00 Test Item Value Reference Range Interpretation [...] A value of 55 was entered by [email or web address] on 01/10/2021 02:3 7 Lymphocytes (test 43 % 13-42 H No previou s value code = LYMPH) was reported. A value of 43 was entered by Vetr on 01/10/2021 02:3 7 Monocytes (test 1 % 4-14 L No previous value code = MONOS) was reported. A value of 1 was entered by [email or web address] on 01/10/2021 02:3 7 Basophils (test 1 % 0-1 No previous value code = BASO) was reported. A value of 1 was entered by Vetr on 01/10/2021 02:3 7 Normal Morphology Normal WBC RBC Normal RBC \\T\\ N No pre vious value (test code = NRCM) and Platelet WBC was repor michael. A Morphology Morphology,Normal value of N ormal WBC RBC and WBC RBC and Platelet Platelet Morphology Morphology was entered by Vetr on 01/10/2021 02:3 7 STLMLAMYLASE, [id number] 02:14:00 Test Item Value Reference Range Interpretation Comments Amylase (test code = AMYL) 46 U/L 25-115 [id number] 02:14:00 Test Item Value Reference Range Interpretation Comments Lipase (test code = LIPA) 115 U/L 73-393 STLMLURINALYSIS WITH [id number] 02:07:00 Test Item Value Reference Range Interpretation Comments Color (test code = Light-Yellow UCOLR) Clarity (test code = Cloudy UCLAR) Glucose (test code = NEGATIVE NEGATIVE N UGLUC) Bilirubin (test code NEGATIVE NEGATIVE N = UBILI) Ketones (test code = NEGATIVE NEGATIVE N UKET) Specific Slick 1.025 1.005-1.030 A (test code = USPGR) Blood (test code = NEGATIVE NEGATIVE N UBLD) PH (test code = UPH) 6.0 4.5-8.0 A Protein (test code = NEGATIVE NEGATIVE N UPROT) Urobilinogen (test 0.2 See_Comment N [Automat ed message] code = U UROB) The system tripJane generated this result transmit michael reference range [...] SEEN A Epithelial (test code = NSE) [facility] CHEM [id number] 01:50:00 Test Item Value Reference Range Interpretation [...] 0.6 mg/dl 0.6-1.3 STL- CT ABD PELVIS [id number] 03:46:00 [facility] 1985 Sex: F FAX: Annemarie Tesfaye [phone] [place]: St: REG Name: LAUREN BETH [facility] : 1985 Age/S: 35/F [address] Unit: [id number] Loc: [place] [address] Phys: Annemarie Tesfaye [employer]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 Acct: [id number] Dis Date: Status: REG ER PHONE #: [phone] Exam Date: 12/13/2020 0325 FAX #: [phone] Reason: DIFFUSE ABD PAIN WORSE RLQ, HX APPY, ROSE EXAMS: CPT CODE: [id number] CT ABD PELVIS W/[id number] AFTER HOURS SERVICE ON: 12/13/2020 3:44 AM [...] 1 Signed Report (CONTINUED) FAX: Annemarie Tesfaye [phone] [place]: St: REG----- Name: LAUREN EBTH [facility] : 1985 Age/S: 35/F [address] Unit: [id number] Loc: [place] [address]Skmw: Annemarie Tesfaye NP Acct: [id number] Dis Date: Status: REG ER PHONE #: [phone] Exam Date: 12/13/20205 FAX #: [phone] Reason: DIFFUSE ABD PAIN WORSE RLQ, HX APPY, ROSE EXAMS: CPT CODE: [id number] CT ABD PELVIS W/CONT 08055 <Continued> CC: Annemarie Tesfaye NP Technologist: PAMELA KRISHNAMURTHY; Jessi Guillory; JAIRO SANCHEZ JR Trnscrd Dt/Tm: 12/13/2020 (034) VereniceMA50 Orig Print D/T: S: 12/13/2020 (6103 PAGE 2 Signed ReportCOMPREHENSIVE METABOLIC [id number] 03:32:00 Test Item Value Reference Range Interpretation [...] U/L 38-126 N (test code = ALKP) [id number] 03:32:00 Test Item Value Reference Range Interpretation Comments LIPASE (test code = LIP) 82 U/L 23-300 N BEDSIDE [id number] 03:24:00 Test Item Value Reference Range Interpretation Comments BEDSIDE CREATININE (test code = 0.60 mg/dL 0.51-1.19 N CREATBED) CBC W/AUTO [id number] 03:14:00 Test Item Value Reference Range Interpretation [...] 0.0-0.1 N UA RFLX MICR CULT IF [id number] 02:59:00 Test Item Value Reference Range Interpretation [...] OF URINE: VOIDEDSTAT LAB CBC WITH AUTO [id number] 15:12:00 Test Item Value Reference Range Interpretation [...] A value of 63 was entered by [email or web address] on 12/12/2020 15:12 Bands (test code [...] A value of 3 was entered by [email or web address] 82 on 12/12/2020 15:12 Formerly named [facility] LAB CHEM [id number] 14:08:00 Test Item Value Reference Range Interpretation [...] code = CREA) 0.5 mg/dl 0.6-1.3 L Formerly named [facility] LAB URINALYSIS WITHOUT [id number] 12:08:00 Test Item Value Reference Range Interpretation Comments Color (test code = Light-Yellow UCOLR) Clarity (test code = Cloudy UCLAR) Glucose (test code = NEGATIVE NEGATIVE N UGLUC) Bilirubin (test code NEGATIVE NEGATIVE N = UBILI) Ketones (test code = NEGATIVE NEGATIVE N UKET) Specific Slick 1.015 1.005-1.030 A (test code = USPGR) Blood (test code = NEGATIVE NEGATIVE N UBLD) PH (test code = UPH) 7.0 4.5-8.0 A Protein (test code = NEGATIVE NEGATIVE N UPROT) Urobilinogen (test 0.2 See_Comment N [Automat ed message] code = U UROB) The system [facility] generated this result transmit michael reference range : 0.2. The refere nce range was not u sed to interpret th is result as normal/abnormal . Nitrite (test code = NEGATIVE NEGATIVE N UNITR) Leukocyte Esterase NEGATIVE NEGATIVE N (test code = ULEUK) [facility] (LIVER)2020-11-21 08:43:00 Test [...] code = 0.4 mg/dl 0.0-1.1 IBIL) [facility]IN[facility] WITH [id number] 08:31:00 Test Item Value Reference Range Interpretation Comments Color (test code = Light-Yellow UCOLR) Clarity (test code = Clear UCLAR) Glucose (test code = NEGATIVE NEGATIVE N UGLUC) Bilirubin (test code NEGATIVE NEGATIVE N = UBILI) Ketones (test code = NEGATIVE NEGATIVE N UKET) Specific Slick 1.020 1.005-1.030 A (test code = USPGR) Blood (test code = NEGATIVE NEGATIVE N UBLD) PH (test code = UPH) 6.5 4.5-8.0 A Protein (test code = NEGATIVE NEGATIVE N UPROT) Urobilinogen (test 0.2 See_Comment N [Automat ed message] code = U UROB) The system [facility] generated this result transmit michael reference [...] TNTC 0-10 A (test code = SQEP) Formerly named [facility] LAB CHEM [id number] 08:27:00 Test Item Value Reference Range Interpretation [...] code = CREA) 0.5 mg/dl 0.6-1.3 L Formerly named [facility] LAB CBC WITH AUTO [id number] 08:26:00 Test Item Value Reference Range Interpretation [...] (test code = IG%) 0.4 % 0.0-0.4 [facility] ABDOMEN 2 VIEWS FLAT / [id number] 08:18:50[facility] ([facility]/[place])Name: LAUREN BETH René : 1985 Sex: FProcedure: XR ABDOMEN 2 VIEWS FLAT / UPRIGHTOrder Date: 11/21/2020 7:43 AMOrdering Provider: REHAN Farrellinical Indication: [id number]: Abdominal painComparison: Nov 14 2020Findings:Bowel gas pattern is non-obstructive. No pneumoperitoneum.There is moderate volume stool burden.Surgical clips in the right upper quadrant of the abdomen.Impression:Nonobstructive bowel gas pattern.This final reportwas electronically signed by Dr Silver Benitez MD :13 AMDictated By: GLORY BENITEZKDate: 11/21/2020 08:13MM OF DALECT ABDOMEN/PELVIS W/O CONTRAST 2020-11-14 14:11:31 [facility] ([facility]/)Name: LAUREN BETH : 1985 Sex: FProcedure: CT ABDOMEN/PELVIS W/O CONTRASTOrder Date: 11/14/2020 1:22 PMOrdering Provider: BILLY ACOSTA .Clinical Indication: [id number]: Right flank painComparison: Renal ultrasound November 08, [...] MD 12:05 PMDictated By: FARZAD DEWITTDate: 11/14/2020 14:05[facility] , [id number] 13:31:00 Test Item Value Reference Range Interpretation Comments (Urine) (test code = Negative PREGU) ONLY AVAILABLE [address] [place], [place] [address]T LAB CHEM [id number] 11:09:00 Test Item Value Reference Range Interpretation [...] code = CREA) 0.5 mg/dl 0.6-1.3 L Formerly named [facility] LAB URINALYSIS WITHOUT [id number] 11:08:00 Test Item Value Reference Range Interpretation Comments Color (test code = Yellow Lt. Yellow A UCOLR) Clarity (test code = Clear UCLAR) Glucose (test code = Negative Negative N UGLUC) Bilirubin (test code Negative Negative N = UBILI) Ketones (test code = Negative Negative N UKET) Specific Slick 1.025 1.005-1.030 A (test code = USPGR) Blood (test code = Trace-intact Negative A UBLD) PH (test code = UPH) 6.0 4.5-8.0 A Protein (test code = Negative Negative N UPROT) Urobilinogen (test 0.2 See_Comment N [Automat ed message] code = U UROB) The system [facility] generated this result transmit michael reference range : 0.2. The refere nce range was not u sed to interpret th is result as normal/abnormal . Nitrite (test code = Negative Negative N UNITR) Leukocyte Esterase Negative Negative N (test code = ULEUK) Formerly named [facility] LAB CBC WITH AUTO [id number] 11:05:00 Test Item Value Reference Range Interpretation [...] (test code = IG%) 0.4 % 0.0-0.4 [facility]in[facility], [id number] 08:43:00Specimen: Urine SpecimensCollected: 11/08/2020 09:59 Status: Final Last Updated: 11/09/2020 08:43 CULTURE (Final) (Final) Few Mixed Body Gabriela Isolated No Pathogens [facility]olatedDepartment of [facility] Affairs [facility] & BLADDER (KIDNEYS)2020-11-08 12:00:28[facility] ([facility])Name: LAUREN BETH : 1985 Sex: FProcedure: US [...] AMDictated By: GLORY BENITEZKDate: 11/08/2020 11:54[facility]ALEURINALYSIS WITH MICROSCOPIC 2020-11-08 10:58:00 Test Item Value Reference Range Interpretation Comments Color (test code = Yellow UCOLR) Clarity (test code = Clear UCLAR) Glucose (test code = NEGATIVE NEGATIVE N UGLUC) Bilirubin (test code = NEGATIVE NEGATIVE N UBILI) Ketones (test code = NEGATIVE NEGATIVE N UKET) Specific Slick (test 1.030 1.005-1.030 A code = USPGR) Blood (test code = NEGATIVE NEGATIVE N UBLD) PH (test code = UPH) 6.0 4.5-8.0 A Protein (test code = NEGATIVE NEGATIVE N UPROT) Urobilinogen (test code 0.2 See_Comment N [Au tomated message] = U UROB) The system [employer] generated this result transmitted ref erence range: [...] 51-74 0-10 A (test code = SQEP) [facility][Note 3]-[facility] CenterkinRYANLTLISSY, [id number] 08:13:00ER 17Specimen: Urine SpecimensCollected: 11/01/2020 01:10 Status: Final Last Updated: 11/02/2020 08:13 (1) ER 17 CULTURE (Final) (Final) Few Mixed Body Gabriela Isolated No Pathogens IsolatedMilwaukee [facility][Note 3]-LufkinXR ABD SERIES W/PA CXR 2020-11-01 03:48:37 [facility] ([facility] [place]/[place])Name: LAUREN BETH : 1985 Sex: [...] October13:48 AM CDT.Dictated By: Salome RAMOS: 11/01/2020 03:48[facility] OF DALEHEPATIC FUNCTION PANEL (LIVER)2020-11-01 02:14:00 Test Item Value [...] (test code = 0.1 mg/dl 0.0-1.1 IBIL) [address] LAB CHEM [id number] 01:57:00 Test Item Value Reference Range Interpretation [...] = CREA) 0.5 mg/dl 0.6-1.3 L ER [address] [place] [address]-LufkinURINALYSIS WITH [id number] 01:56:00 Test Item Value Reference Range Interpretation Comments Color (test code = Light-Yellow UCOLR) Clarity (test code = Clear UCLAR) Glucose (test code = 50 NEGATIVE A UGLUC) Bilirubin (test code NEGATIVE NEGATIVE N = UBILI) Ketones (test code = NEGATIVE NEGATIVE N UKET) Specific Slick 1.025 1.005-1.030 A (test code = USPGR) Blood (test code = NEGATIVE NEGATIVE N UBLD) PH (test code = UPH) 6.0 4.5-8.0 A Protein (test code = TRACE NEGATIVE A UPROT) Urobilinogen (test 0.2 See_Comment N [Automat ed message] code = U UROB) The system [facility] generated this result transmit michael reference [...] 41-50 0-10 A (test code = SQEP) [address] LAB CBC WITH AUTO [id number] 01:55:00 Test Item Value Reference Range Interpretation [...] (test code = IG%) 0.4 % 0.0-0.4 [address]HEPATIC FUNCTION PANEL (LIVER)2020-10-05 01:26:00 Test Item [...] code = 0.1 mg/dl 0.0-1.1 IBIL) er [address] [place], [place] [address]kinLIPASE2021-04-07 01:26:00 Test Item Value Reference Range Interpretation Comments Lipase (test code = LIPA) 154 U/L 73-[address] LAB CHEM [id number] 01:15:00 Test Item Value Reference Range Interpretation [...] code = CREA) 0.6 mg/dl 0.6-1.[address] [place] [address] LAB , [id number] 01:14:00 Test Item Value Reference Range Interpretation Comments (Urine) (test code = Negative PREGU) er [address] [place] [address] LAB CBC WITH AUTO [id number] 01:13:00 Test Item Value Reference Range Interpretation [...] = IG%) 0.9 % 0.0-0.[address] [place], [place] [address]Ftjepe-[id number] 04:21:00 Test Item Value Reference Range Interpretation Comments Lipase (test code = LIPA) 146 U/L 73-393 [facility] Center[facility] (LIVER)2020-09-18 04:21:00 Test [...] (test code = 0.1 mg/dl 0.0-1.1 IBIL) [facility][Note 3]-LufkinAMYLASE, [id number] 04:21:00 Test Item Value Reference Range Interpretation Comments Amylase (test code = AMYL) 47 U/L 25-115 [facility][Note 3]-LufkinURINALYSIS WITH [id number] 03:06:00 Test Item Value Reference Range Interpretation Comments Color (test code = Light-Yellow UCOLR) Clarity (test code = Clear UCLAR) Glucose (test code = NEGATIVE NEGATIVE N UGLUC) Bilirubin (test code NEGATIVE NEGATIVE N = UBILI) Ketones (test code = TRACE NEGATIVE A UKET) Specific Slick 1.025 1.005-1.030 A (test code = USPGR) Blood (test code = NEGATIVE NEGATIVE N UBLD) PH (test code = UPH) 5.5 4.5-8.0 A Protein (test code = NEGATIVE NEGATIVE N UPROT) Urobilinogen (test 0.2 See_Comment N [Automat ed message] code = U UROB) The system [facility] generated this result transmit michael reference [...] SEEN A Epithelial (test code = NSE) Formerly named [facility] LAB CHEM [id number] 02:51:00 Test Item Value Reference Range Interpretation [...] (test code = CREA) 0.6 mg/dl 0.6-1.3 Formerly named [facility] LAB CBC WITH AUTO [id number] 02:50:00 Test Item Value Reference Range Interpretation [...] code = IG%) 0.5 % 0.0-0.4 H [facility][Note 3]-LufkinXR ABDOMEN 1 VIEW (KUB)2020-09-12 01:51:21 [facility] ([place])Name: LAUREN BETH : 1985 Sex: FPROCEDURE [...] CDT.Dictated By: CELESTINO ALLENDate: 09/12/2020 01:50[facility] [place] STAT LAB CBC WITH AUTO [id number] 01:29:00 Test Item Value Reference Range Interpretation [...] (test code = IG%) 0.4 % 0.0-0.4 Formerly named [facility] LAB CHEM [id number] 01:28:00 Test Item Value Reference Range Interpretation [...] (test code = CREA) 0.6 mg/dl 0.6-1.3 [facility][Note 3]-fkinURINALYSIS WITH [id number] 03:04:00 Test Item Value Reference Range Interpretation Comments Color (test code = Yellow UCOLR) Clarity (test code = Clear UCLAR) Glucose (test code = 100 NEGATIVE A UGLUC) Bilirubin (test code = NEGATIVE NEGATIVE N UBILI) Ketones (test code = TRACE NEGATIVE A UKET) Specific Slick (test >=1.030 1.005-1.030 A code = USPGR) Blood (test code = NEGATIVE NEGATIVE N UBLD) PH (test code = UPH) 5.5 4.5-8.0 A Protein (test code = NEGATIVE NEGATIVE N UPROT) Urobilinogen (test code 0.2 See_Comment N [Au tomated message] = U UROB) The system [employer] generated this result transmitted ref erence range: [...] code = 3+ None Seen,Trace A UBACT) [facility][Note 3]-[id number] 03:01:00 Test Item Value Reference Range Interpretation [...] ( 4 - SerumAlbumin)] EGFR if >60 [place] (test code mL/min/1.73m\\ = EGFRAA) S\\2 EGFR if Non- >60 Estimate d Glomerular [place] (test code mL/min/1.73m\\ Filtrat ion Rate (eGFR) [...] and management of c hronic kidney failure. [facility][Note 3]Guyeig-[id number] 03:01:00 Test Item Value Reference Range Interpretation Comments Lipase (test code = LIPA) 145 U/L 73-393 Formerly named [facility] LAB TEST, Serum Qualitative 2020-08-22 02:48:00 Test Item Value Reference Range Interpretation Comments (Serum) (test code = Negative PREGS) Formerly named [facility] LAB CBC WITH AUTO [id number] 02:28:00 Test Item Value Reference Range Interpretation [...] % 0.0-0.4 H [facility] CenterHEPAT[facility] FUNCTION PANEL (LIVER)2020-08-06 02:59:00 Test [...] code = 0.1 mg/dl 0.0-1.1 IBIL) ER [address] [place], [place] [address]Numdye-[id number] 02:59:00 Test Item Value Reference Range Interpretation Comments Lipase (test code = LIPA) 167 U/L 73-[address] [place] [address]-EchoURINALYSIS WITH [id number] 02:48:00 Test Item Value Reference Range Interpretation Comments Color (test code = UCOLR) Yellow Clarity (test code = UCLAR) Clear Glucose (test code = UGLUC) NEGATIVE NEGATIVE N Bilirubin (test code = UBILI) NEGATIVE NEGATIVE N Ketones (test code = UKET) NEGATIVE NEGATIVE N Specific Slick (test code = >=1.030 1.005-1.030 A USPGR) [...] = UBACT) 4+ None Seen,Trace A ER [address] [place] [address]-LufkinIL ABDOMEN/PELVIS W/O [id number] 02:34:52ER 16 R/O KIDNEY STONE [facility] ([facility] [place]/)Name: LAUREN BETH : [id number] Sex: FPROCEDURE INFORMATION:Exam: CT Abdomen And Pelvis [...] AM CDT.Dictated By: HOLLIS FERRERADate: 08/06/2020 02:34[facility] LAB CHEM 8 2020-08-06 02:29:00 Test [...] = CREA) 0.4 mg/dl 0.6-1.3 L ER [address] [place], [place] [address] WITH AUTO [id number] 02:29:00 Test Item Value Reference Range Interpretation [...] = IG%) 0.7 % 0.0-0.4 H ER [address] [place], [place] [address]Kjytsn-[id number] 09:31:00 Test Item Value Reference Range Interpretation Comments Lipase (test code = LIPA) 117 U/L 73-393 [facility] CenterHEPATIC FUNCTION PANEL (LIVER)2020-07-19 09:31:00 Test [...] (test code = 0.3 mg/dl 0.0-1.1 IBIL) [facility][Note 3]-LufkinXR ABDOMEN 2 VIEWS FLAT / [id number] 09:22:50[facility] ([facility] [place]/)Name: LAUREN BETH : [id number] Sex: FProcedure: XR ABDOMEN 2 VIEWS FLAT / UPRIGHTOrder Date: 07/19/2020 8:40 AMOrdering Provider: REHAN COTTON .Clinical Indication: [id number]: Abdominal painComparison: July 05, 2020Findings:Postoperative change consisting [...] MD :17 AMDictated By: FARZAD DEWITTDate: 07/19/2020 09:17[facility] LAB CHEM [id number] 09:10:00 Test Item Value Reference Range Interpretation [...] code = CREA) 0.5 mg/dl 0.6-1.3 L Formerly named [facility] LAB CBC WITH AUTO [id number] 09:09:00 Test Item Value Reference Range Interpretation [...] code = IG%) 0.7 % 0.0-0.4 H [facility][Note 3]-LufkinSTAT LAB URINALYSIS WITHOUT [id number] 09:08:00 Test Item Value Reference Range Interpretation Comments Color (test code = UCOLR) Yellow Lt. Yellow A Clarity (test code = UCLAR) Clear Glucose (test code = UGLUC) Negative Negative N Bilirubin (test code = UBILI) Negative Negative N Ketones (test code = UKET) Negative Negative N Specific Slick (test code = USPGR) >=1.030 1.005-1.030 A Blood (test code = UBLD) Negative Negative N PH (test code = UPH) 6.0 4.5-8.0 A Protein (test code = UPROT) Negative Negative N Urobilinogen (test code = U UROB) 0.2 >0.2 N Nitrite (test code = UNITR) Negative Negative N Leukocyte Esterase (test code = Negative Negative N ULEUK) [facility][Note 3]-LufkinCULTURE, [id number] 08:00:00Specimen: Urine SpecimensCollected: 07/05/2020 03:00 Status: Final Last Updated: 07/07/2020 08:00 CULTURE (Final) (Final) No Growth After 48 HoursMil[facility][Note 3]-LufkinXR ABDOMEN 1 VIEW (KUB)2020-07-05 04:07:04 [facility] ([facility] [place])Name: LAUREN BETH : [id number] Sex: FPROCEDURE INFORMATION:Exam: XR Abdomen, 1 ViewExam [...] CDT.Dictated By: OSKAR CRANEte: 07/05/2020 04:06[facility] LAB , [id number] 03:54:00 Test Item Value Reference Range Interpretation Comments (Urine) (test code = Negative PREGU) Formerly named [facility] LAB CHEM [id number] 03:53:00 Test Item Value Reference Range Interpretation [...] code = CREA) 0.5 mg/dl 0.6-1.3 L Formerly named [facility] LAB CBC WITH AUTO [id number] 03:51:00 Test Item Value Reference Range Interpretation [...] (test code = IG%) 0.4 % 0.0-0.4 [facility][Note 3]-LufkinURINALYSIS WITH [id number] 03:33:00 Test Item Value Reference Range Interpretation Comments Color (test code = UCOLR) Yellow Clarity (test code = UCLAR) Clear Glucose (test code = UGLUC) NEGATIVE NEGATIVE N Bilirubin (test code = UBILI) Small NEGATIVE A Ketones (test code = UKET) TRACE NEGATIVE A Specific Slick (test code = USPGR) 1.020 1.005-1.030 A [...] code = UBACT) Trace None Seen,Trace N [facility][Note 3]-LufkinCT ABDOMEN/PELVIS W/[id number] 16:44:35 [facility] ([facility] [place]/[place])Name: LAUREN BETH : [id number] Sex: FProcedure: CT ABDOMEN/PELVIS W/CONTRASTOrder date: 06/07/2020 3:47 PMOrdering Provider: REHAN Farrellinical Indication: [id number]: Left flank painComparison: 06/07/20Technique: Multiple axial helical [...] PMDictated By: WILEY VELÁZQUEZDate: 06/07/2020 16:38[facility] TEXASURINALYSIS WITH [id number] 15:22:00 Test Item Value Reference Range Interpretation Comments Color (test code = UCOLR) Yellow Clarity (test code = UCLAR) Clear Glucose (test code = UGLUC) NEGATIVE NEGATIVE N Bilirubin (test code = UBILI) NEGATIVE NEGATIVE N Ketones (test code = UKET) NEGATIVE NEGATIVE N Specific Slick (test code = USPGR) 1.020 1.005-1.030 A [...] code = UBACT) Trace None Seen,Trace N Formerly named [facility] LAB CHEM [id number] 15:10:00 Test Item Value Reference Range Interpretation [...] code = CREA) 0.4 mg/dl 0.6-1.3 L Formerly named [facility] LAB CBC WITH AUTO [id number] 15:08:00 Test Item Value Reference Range Interpretation [...] code = IG%) 0.5 % 0.0-0.4 H [facility][Note 3]-LufkinCT ABD/ PELVIS W/O CON (RENAL STONE)2020-06-07 14:56:05[facility] ([facility] [place]/[place])Name: LAUREN BETH : [id number] Sex: FProcedure: CT ABD/ PELVIS W/O CON (RENAL STONE)Order date: 06/07/2020 2:18 PMOrdering Provider: REHAN COTTONClinical Indication: [id number]: Left flank painComparison: 05/31/20TECHNIQUE: Using a helical [...] changes in the abdomen or pelvis.Prior gastric sleeveprocedure. Status post cholecystectomy.The remaining visualized solid and hollow abdominal viscera are unremarkable.Osseous structures are nonacute.Impression:1. Nonacute CT of the abdomen and pelvis without contrast.2. 2 mm nonobstructing stone seen within the midpole of the left kidney.3. Postoperative changes as above.This final report was electronically signed by Dr Wiley Velázquez MD 06/07/20202:49 PMDictated By: WILEY VELÁZQUEZDate: 06/07/2020 14:49[facility] D[facility]ECT ABDOMEN/PELVIS W/O [id number] 12:27:07NPO 4 hours. Do not withhold meds hyst [facility] ([facility] [place])Name: LAUREN BETH : [id number] Sex: FProcedure: CT ABDOMEN/PELVIS W/O CONTRASTOrder Date: 05/31/2020 10:25 AMOrdering Provider: ME JESUS RYANClinical Indication: [id number]: Pain radiating to right flankComparison: March 20, [...] MD 05/31/202012:20 PMDictated By: FARZAD DEWITTDate: 05/31/2020 12:20[facility] OF [id number] 11:48:00 Test Item Value Reference Range Interpretation Comments Lipase (test code = LIPA) 116 U/L 73-393 Formerly named [facility] LAB URINALYSIS WITHOUT [id number] 10:59:00 Test Item Value Reference Range Interpretation Comments Color (test code = UCOLR) Light yellow Lt. Yellow A Clarity (test code = UCLAR) Clear Glucose (test code = UGLUC) Negative Negative N Bilirubin (test code = UBILI) Negative Negative N Ketones (test code = UKET) Negative Negative N Specific Slick (test code = 1.025 1.005-1.030 A USPGR) Blood (test code = UBLD) Negative Negative N PH (test code = UPH) 6.0 4.5-8.0 A Protein (test code = UPROT) Negative Negative N Urobilinogen (test code = U 0.2 >0.2 N UROB) Nitrite (test code = UNITR) Negative Negative N Leukocyte Esterase (test code = Negative Negative N ULEUK) Formerly named [facility] LAB CBC WITH AUTO [id number] 10:58:00 Test Item Value Reference Range Interpretation [...] code = IG%) 0.5 % 0.0-0.4 H Formerly named [facility] LAB CHEM [id number] 10:53:00 Test Item Value Reference Range Interpretation [...] code = CREA) 0.5 mg/dl 0.6-1.3 L [facility] ABDOMEN 1 VIEW (KUB)2020-04-25 21:02:16 [facility] ([facility] [place])Name: LAUREN BETH [facility]: [id number] Sex: FPROCEDURE INFORMATION:Exam: XR Abdomen, 1 ViewExam [...] PM CDT. Dictated By: TEJAS RODRIGUEZ.Date: 04/25/2020 21:02[facility]ENTERURINALYSIS WITH [id number] 18:57:00 Test Item Value Reference Range Interpretation Comments Color (test code = UCOLR) Yellow Lt. Yellow A Clarity (test code = UCLAR) Clear Glucose (test code = UGLUC) Negative Negative N Bilirubin (test code = UBILI) Negative Negative N Ketones (test code = UKET) Negative Negative N Specific Slick (test code = 1.020 1.005-1.030 A USPGR) [...] code = UBACT) 4+ None Seen,Trace A Formerly named [facility] LAB CBC WITH AUTO [id number] 18:55:00 Test Item Value Reference Range Interpretation [...] of Platel et clumping was entered by [id number] on 04/25/2020 18:5 5 Formerly named [facility] LAB CHEM [id number] 18:17:00 Test Item Value Reference Range Interpretation [...] code = CREA) 0.4 mg/dl 0.6-1.3 L [facility][Note 3]-LufkinCULTURE, ANAEROBE [id number] 15:20:00FIRST DRAW = 1 aerobic and 1 anerobic CultureSpecimen: BloodCollected: 03/20/2020 18:30 Status: Final Last Updated: 03/26/2020 15:19 (1) FIRST DRAW = 1 aerobic and 1 anerobic Culture CULTURE (Final) (Final) No Growth After 5 DaysMil[facility][Note 3]-LufkinCULTURE, [id number] 15:20:00FIRST DRAW = 1 aerobic and 1 anerobic CultureSpecimen: BloodCollected: 03/20/2020 18:30 Status: Final Last Updated: 03/26/2020 15:19 (1) FIRST DRAW = 1 aerobic and 1 anerobic Culture CULTURE (Final) (Final) No Growth After 5 DaysMil[facility][Note 3]-LufkinCT ABDOMEN/PELVIS W/[id number] 21:46:442 weeks s/p adhesolysis. Vomiting/pain/fever. Please do CT with PO and IV contrastProcedures: CT ABDOMEN/PELVIS W/CONTRASTExam Date: 03/20/2020 6:04 PMOrdering Physician: REHAN Farrellinical Indication: [id number]: Abdominal painComparison: CT abdomen/pelvis, 02/25/20TECHNIQUE: Spiral multislice [...] 9:40 PMDictated By: ELMER PHAMDate:03/20/2020 21:40[facility] OF DALEHEPATIC FUNCTION PANEL (LIVER)2020-03-20 19:24:00 Test Item Value [...] (test code = 0.3 mg/dl 0.0-1.1 IBIL) [facility][Note 3]Acbscn-[id number] 19:24:00 Test Item Value Reference Range Interpretation Comments Lipase (test code = LIPA) 69 U/L 73-393 L [facility][Note 3]Ejzwfn-[id number] 19:24:00 Test Item Value Reference Range Interpretation Comments Magnesium (test code = MG) 2.0 mg/dl 1.6-2.6 Formerly named [facility] LAB CHEM [id number] 18:43:00 Test Item Value Reference Range Interpretation [...] code = CREA) 0.5 mg/dl 0.6-1.3 L Formerly named [facility] LAB LACTIC [id number] 18:42:00 Test Item Value Reference Range Interpretation Comments LACTATE (test code = 2.50 mmol/l 0.90-1.70 R&RB sy rene hassan rn LAC) @1842 Formerly named [facility] LAB CBC WITH AUTO [id number] 18:41:00 Test Item Value Reference Range Interpretation [...] (test code = IG%) 0.4 % 0.0-0.4 [facility][Note 3]-LufkinSP PERC PLMNT MIDLINE NO PORT > 5 [...] secured to the skin in the usual fashion.Distance Education Teacher images were recorded and stored in the medical [facility] fordocumentation. The patient tolerated the procedure well and there were noimmediate complications.Impression:1. Successful upper extremity vascular access.This final report was electronically signed by Dr Farzad Dewitt MD 03/15/20201:14 PMDictated By: FARZAD DEWITTDate: 03/15/2020 13:14[facility] 2019 (IN HOUSE)2020-03-13 21:03:00 Test Item Value Reference Range Interpretation Comments FT (test code Negative Negative N The BioGX SARS -CoV-2 = COVID) (qualifier value) Reagents f or BD MAX System, the Bio Fire Covid-19, and t he Cepheid Covid-1 9 is for in vitro us e under FDA Emergency U se Authorization o nly. Indeterminate r esults recommend recol lection of specimen. [facility][Note 3]-LufkinXR ABD SERIES W/PA [id number] 17:33:07 Procedure: XR ABD SERIES W/PA CXROrder [...] PMDictated By: GLORY BENITEZKDate: 03/13/2020 17:26[facility] LAB CBC WITH AUTO [id number] 17:23:00 Test Item Value Reference Range Interpretation [...] entered by [id number] on 03/13/2020 17:23 [facility] HospitalkinLIPASE2020-09-13 17:23:00 Test Item Value Reference Range Interpretation Comments Lipase (test code = LIPA) 61 U/L 73-393 L [facility] Center[facility] FUN[facility] PANEL (LIVER)2020-03-13 17:23:00 Test [...] (test code = 0.4 mg/dl 0.0-1.1 IBIL) [facility][Note 3]-EchoURINALYSIS WITH [id number] 16:54:00 Test Item Value Reference Range Interpretation Comments Color (test code = UCOLR) Yellow Lt. Yellow A Clarity (test code = UCLAR) Clear Glucose (test code = UGLUC) Negative Negative N Bilirubin (test code = UBILI) Negative Negative N Ketones (test code = UKET) Negative Negative N Specific Slick (test code = >=1.030 1.005-1.030 A USPGR) [...] code = UBACT) 4+ None Seen,Trace A Formerly named [facility] LAB CHEM [id number] 16:37:00 Test Item Value Reference Range Interpretation [...] code = CREA) 0.4 mg/dl 0.6-1.3 L [facility]Note 3[facility]P PERC PLMNT MIDLINE NO PORT > 5 [...] MD 03/02/202012:17 PMDictated By: Maggie BENITEZte: 03/02/2020 12:17[facility] 2019 (IN HOUSE)2020-03-01 18:48:00 Test [...] r esults recommend recol lection of specimen. [facility] HospitalkinPT AND [id number] 11:51:00 Test Item Value Reference Range Interpretation Comments Protime (test code 9.8 seconds 9.5-12.1 = PT) INR (test code = 0.9 0.9-1.1 INR results are intended INR) ONLY to monitor Oral Anticoagulant t herapy in stablized patie nts. The INR Therapeutic Range is 2.0 - 3.0 Patie nts with a mechanical he art, the INR Range is 2. 5 - 3.5 [facility] HospitalkinPTT2020-09-01 11:51:00 Test Item Value Reference Range Interpretation Comments aPTT (test code = PTT) 27.4 seconds 23.9-30.7 [facility] HospitalkinCB (HEMOGRAM ONLY)2020-03-01 11:44:00 Test Item Value Reference [...] WILL BE NOTED ON THE RE PORT. [facility][Note 3]-LufkinCULTURE, [id number] 08:08:00Specimen: Urine RandomCollected: 02/25/2020 11:27 Status: Final Last Updated: 02/27/2020 08:08 CULTURE (Final) (Final) No Growth After 48 HoursMil[facility][Note 3]-Echo [id number] 05:38:00 Test Item Value Reference Range Interpretation [...] 0.5-1.3 code = CREA) EGFR if >60 [place] (test code mL/min/1.73m\\ = EGFRAA) S\\2 EGFR if Non- >60 Estimate d Glomerular [place] (test code mL/min/1.73m\\ Filtrat ion Rate (eGFR) [...] and management of c hronic kidney failure. [facility] (Ultra Sensitive)2020-02-26 05:38:00 Test Item Value Reference Range Interpretation Comments TSH (test code = TSH) 0.04 mIU/L 0.35-3.74 L [facility] WITH AUTO [id number] 05:18:00 Test Item Value Reference Range Interpretation [...] 0.5 % 0.0-0.4 H IG%) CBC AUTO diffMemoriShoals HospitalfkinCORONAVIRUS 2019 (IN HOUSE)2020-02-25 14:06:00 Test Item Value [...] recol lection of specimen. [facility] CenterURINALYSIS WITH [id number] 12:56:00 Test Item Value Reference Range Interpretation Comments Color (test code = UCOLR) Yellow Lt. Yellow A Clarity (test code = UCLAR) Slightly Cloudy Glucose (test code = UGLUC) Negative Negative N Bilirubin (test code = UBILI) Negative Negative N Ketones (test code = UKET) Negative Negative N Specific Slick (test code = >=1.030 1.005-1.030 A USPGR) [...] code = UBACT) Trace None Seen,Trace N [facility] HospitalkinLIPASE2020-08-27 12:52:00 Test Item Value Reference Range Interpretation Comments Lipase (test code = LIPA) 90 U/L 73-393 [facility] CenterHEPATIC FUNCTION PANEL (LIVER)2020-02-25 12:52:00 Test [...] (test code = 0.3 mg/dl 0.0-1.1 IBIL) [facility][Note 3]-[place]CT ABDOMEN/PELVIS W/[id number] 12:42:41NPO 4 hours. Do not withhold medsProcedure: [...] MD 02/25/202012:36 PMDictated By: WILEY VELÁZQUEZDate: 02/25/2020 12:36[facility] LAB CHEM 8 2020-02-25 12:07:00 Test Item Value Reference Range [...] code = CREA) 0.5 mg/dl 0.6-1.3 L Formerly named [facility] LAB CBC WITH AUTO [id number] 12:05:00 Test Item Value Reference Range Interpretation [...] (test code = IG%) 0.3 % 0.0-0.4 Formerly named [facility] LAB CBC WITH AUTO [id number] 03:15:00 Test Item Value Reference Range Interpretation [...] code = IG%) 0.6 % 0.0-0.4 H Formerly named [facility] LAB CHEM [id number] 02:55:00 Test Item Value Reference Range Interpretation [...] code = CREA) 0.5 mg/dl 0.6-1.3 L [facility]Note 3]-[facility] CenterkinXR ABDOMEN 1 VIEW (KUB)2020-02-25 02:45:30 [...] By: JORGE LUIS WHITEDate: 02/25/2020 02:45[facility] , URINE 2020-02-25 01:12:00 Test Item Value Reference Range Interpretation Comments (Urine) (test code = Negative PREGU) Formerly named [facility] LAB URINALYSIS WITHOUT [id number] 01:11:00 Test Item Value Reference Range Interpretation Comments Color (test code = UCOLR) Yellow Lt. Yellow A Clarity (test code = UCLAR) Clear Glucose (test code = UGLUC) Negative Negative N Bilirubin (test code = UBILI) Negative Negative N Ketones (test code = UKET) Negative Negative N Specific Slick (test code = USPGR) >=1.030 1.005-1.030 A Blood (test code = UBLD) Negative Negative N PH (test code = UPH) 5.5 4.5-8.0 A Protein (test code = UPROT) Negative Negative N Urobilinogen (test code = U UROB) 0.2 >0.2 N Nitrite (test code = UNITR) Negative Negative N Leukocyte Esterase (test code = Negative Negative N ULEUK) [facility][Note 3]-[place]ufkinXR ABDOMEN 1 VIEW (KUB)2020-02-10 06:46:05 Procedure: XR ABDOMEN 1 VIEW (KUB)Order date: 02/10/2020 4:01 AMOrdering Provider: JUAN Galiciainical Indication: Abdominal painComparison: NoneFindings:There is no small or large bowel distention.There is no pneumoperitoneum.There are no suspicious calcifications.There is no skeletal abnormality.Impression:1. Negative single view abdomen.This final report was electronically signed by Dr Wiley Velázquez MD 02/10/20206:39 AMDictated By: WILEY VELÁZQUEZDate: 02/10/2020 06:39[facility] BLADDER (KIDNEYS)2020-02-10 05:31:33PROCEDURE INFORMATION:Exam: US [...] By: JORGE LUIS WHITEDate: 02/10/2020 05:31[facility] OF DALEURINALYSIS WITH [id number] 05:10:00 Test Item Value Reference Range Interpretation Comments Color (test code = UCOLR) Yellow Lt. Yellow A Clarity (test code = UCLAR) Clear Glucose (test code = UGLUC) >=1000 Negative A Bilirubin (test code = UBILI) Negative Negative N Ketones (test code = UKET) Negative Negative N Specific Slick (test code = 1.015 1.005-1.030 A USPGR) [...] Seen None Seen,Trace N [facility] CenterLIPASE2020-08-12 04:42:00 Test Item Value Reference Range Interpretation Comments Lipase (test code = LIPA) 91 U/L 73-393 [facility] CenterHEPATIC FUNCTION PANEL (LIVER)2020-02-10 04:42:00 Test [...] (test code = 0.2 mg/dl 0.0-1.1 IBIL) Formerly named [facility] LAB CHEM [id number] 04:27:00 Test Item Value Reference Range Interpretation [...] (test code = CREA) 0.6 mg/dl 0.6-1.3 Formerly named [facility] LAB , [id number] 04:24:00 Test Item Value Reference Range Interpretation Comments (Urine) (test code = Negative PREGU) Formerly named [facility] LAB CBC WITH AUTO [id number] 04:22:00 Test Item Value Reference Range Interpretation [...] 0.5 % 0.0-0.4 H [facility] L SPINE W/O [id number] 12:46:24 Procedure: CT L SPINE W/O CONTRASTOrder date: 01/25/2020 11:46 AMOrdering Provider: DONALD Coffey Indication: [id number]: Low back painComparison: NoneTechnique: Using a multislice [...] MD 01/25/202012:39 PMDictated By: WILEY VELÁZQUEZDate: 01/25/2020 12:39[facility] CENTERHEPATIC FUNCTION PANEL (LIVER)2019-12-09 05:49:00 Test [...] (test code = 0.3 mg/dl 0.0-1.1 IBIL) [address]-[id number] 05:49:00 Test Item Value Reference Range Interpretation Comments Lipase (test code = LIPA) 105 U/L 73-393 [address] [facility] CHEM [id number] 05:06:00 Test Item Value Reference Range Interpretation [...] = CREA) 0.5 mg/dl 0.6-1.3 L ER [address] [place] [address] LAB CBC WITH AUTO [id number] 05:04:00 Test Item Value Reference Range Interpretation [...] code = IG%) 0.4 % 0.0-0.[address] [place] [address]-[id number] 02:23:00 Test Item Value Reference Range Interpretation [...] ( 4 - SerumAlbumin)] EGFR if >60 [place] (test code mL/min/1.73m\\ = EGFRAA) S\\2 EGFR if Non- >60 Estimate d Glomerular [place] (test code mL/min/1.73m\\ Filtrat ion Rate (eGFR) [...] and management of c hronic kidney failure. [facility][Note 3]-LufkinURINALYSIS WITH [id number] 02:11:00 Test Item Value Reference Range Interpretation Comments Color (test code = UCOLR) Yellow Lt. Yellow A Clarity (test code = UCLAR) Clear Glucose (test code = UGLUC) Negative Negative N Bilirubin (test code = UBILI) Negative Negative N Ketones (test code = UKET) Trace Negative A Specific Slick (test code = USPGR) >=1.030 1.005-1.030 A [...] code = UBACT) 2+ None Seen,Trace A [facility]Note 3]-[facility] Centerkin[facility] CBC WITH AUTO [id number] 02:03:00 Test Item Value Reference Range Interpretation [...] (test code = IG%) 0.4 % 0.0-0.4 [facility][Note 3]-[facility] ABDOMEN/PELVIS W/[id number] 22:43:00NPO 4 hours. Do not withhold meds [...] PM CDT.Dictated By: JOSUÉ MCGHEEDate: 10/07/2019 22:42[facility] 2019-10-07 22:05:00 Test Item [...] 0.5-1.3 code = CREA) EGFR if >60 [place] (test code mL/min/1.73m\\ = EGFRAA) S\\2 EGFR if Non- >60 Estimate d Glomerular [place] (test code mL/min/1.73m\\ Filtrat ion Rate (eGFR) [...] and management of c hronic kidney failure. [facility][Note 3]-LufkinAMYLASE, [id number] 22:05:00 Test Item Value Reference Range Interpretation Comments Amylase (test code = AMYL) 43 U/L 25-115 [facility][Note 3]Adsnsb-[id number] 22:05:00 Test Item Value Reference Range Interpretation Comments Lipase (test code = LIPA) 95 U/L 73-393 [facility][Note 3]-fkinURINALYSIS WITH [id number] 21:49:00 Test Item Value Reference Range Interpretation Comments Color (test code = UCOLR) Yellow Lt. Yellow A Clarity (test code = UCLAR) Clear Glucose (test code = UGLUC) Negative Negative N Bilirubin (test code = UBILI) Negative Negative N Ketones (test code = UKET) 15 Negative A Specific Slick (test code = USPGR) >=1.030 1.005-1.030 A [...] code = UBACT) 3+ None Seen,Trace A Formerly named [facility] LAB CBC WITH AUTO [id number] 21:45:00 Test Item Value Reference Range Interpretation [...] (test code = IG%) 0.4 % 0.0-0.4 [facility][Note 3]-LufkinSTAT LAB , [id number] 21:36:00 Test Item Value Reference Range Interpretation Comments (Urine) (test code = Negative PREGU) [facility][Note 3]-[place]kinCT ABDOMEN/PELVIS W/O [id number] 03:56:36 PROCEDURE INFORMATION:Exam: CT Abdomen And Pelvis [...] AM CDT.Dictated By: AMY ORDOÑEZDate: 09/20/2019 03:56 [facility] [id number] 02:07:00 Test Item Value Reference Range Interpretation [...] ( 4 - SerumAlbumin)] EGFR if >60 [place] (test code mL/min/1.73m\\ = EGFRAA) S\\2 EGFR if Non- >60 Estimate d Glomerular [place] (test code mL/min/1.73m\\ Filtrat ion Rate (eGFR) [...] and management of c hronic kidney failure. [facility][Note 3]-LufkinXR ABDOMEN 2 VIEWS FLAT / [id number] 02:01:15PROCEDURE INFORMATION:Exam: XR Abdomen, 2 ViewsExam date [...] 2:01 AM CDT.Dictated By: AMY ORDOÑEZDate: 09/20/2019 02:01[facility] CENTERURINALYSIS WITH MICROSCOPIC 2019-09-20 01:56:00 Test Item Value Reference Range Interpretation Comments Color (test code = UCOLR) Yellow Lt. Yellow A Clarity (test code = UCLAR) Clear Glucose (test code = UGLUC) >=1000 Negative A Bilirubin (test code = UBILI) Negative Negative N Ketones (test code = UKET) Trace Negative A Specific Slick (test code = USPGR) >=1.030 1.005-1.030 A [...] code = UBACT) 2+ None Seen,Trace A Formerly named [facility] LAB CBC WITH AUTO [id number] 01:38:00 Test Item Value Reference Range Interpretation [...] 0.5 % 0.0-0.4 H [facility] ABDOMEN/PELVIS W/[id number] 04:23:30 PROCEDURE INFORMATION:Exam: CT Abdomen And Pelvis [...] CDT.Dictated By: SETH MEDINADate: 08/17/2019 04:23[facility] OF [id number] 03:34:00 Test Item Value Reference Range Interpretation Comments Lipase (test code = LIPA) 67 U/L 73-393 L [facility][Note 3]-[id number] 03:34:00 Test Item Value Reference Range Interpretation [...] ( 4 - SerumAlbumin)] EGFR if >60 [place] (test code mL/min/1.73m\\ = EGFRAA) S\\2 EGFR if Non- >60 Estimate d Glomerular [place] (test code mL/min/1.73m\\ Filtrat ion Rate (eGFR) [...] and management of c hronic kidney failure. [facility][Note 3]-[facility] LAB CBC WITH AUTO [id number] 03:19:00 Test Item Value Reference Range Interpretation [...] code = IG%) 0.7 % 0.0-0.4 H [facility][Note 3]-LufkinURINALYSIS WITH [id number] 03:10:00 Test Item Value Reference Range Interpretation Comments Color (test code = UCOLR) YELLOW Clarity (test code = UCLAR) CLEAR Glucose (test code = UGLUC) NEGATIVE NEGATIVE N Bilirubin (test code = UBILI) NEGATIVE NEGATIVE N Ketones (test code = UKET) NEGATIVE NEGATIVE N Specific Slick (test code = 1.025 1.005-1.030 A USPGR) [...] code = UBACT) 1+ None Seen,Trace A Formerly named [facility] LAB , [id number] 03:03:00 Test Item Value Reference Range Interpretation Comments (Urine) (test code = Negative PREGU) ONLY AVAILABLE [address] [address] [id number] 20:37:00 Test Item Value Reference Range Interpretation [...] (test code = CREA) 0.6 mg/dl 0.6-1.2 [place] [address] [id number] 20:28:00 Test Item Value Reference Range Interpretation [...] code = MPV) 7.1 fL 8.0-11.0 A [facility][Note 3]-[facility], [id number] 08:44:14mjk5Posqvhsh: Urine SpecimensCollected: 07/12/2019 15:00 Status: Final Last Updated: 2019 08:44 (1) err7 Culture Result (Final) (Final) Moderate Mixed Body Gabriela Isolated No Pathogens Isolated No Further Workup PerformedMil[facility][Note 3]-[facility] LIMITED [id number] 17:53:41Procedures: [place] LIMITED IVPExam Date: 07/12/2019 3:21 PMOrdering Physician: REHAN Farrellinical Indication: [id number]: Flank painComparison: CT abdomen/pelvis, 05/17/19Findings: Frontal radiographs [...] PMDictated By: ELMER PHAMDate: 07/12/2019 17:47[facility] [id number] 15:56:00 Test Item Value Reference Range Interpretation Comments Lipase (test code = LIPA) 97 U/L 73-393 [address]HEPATIC FUNCTION PANEL (LIVER)2019-07-12 15:56:00 Test Item Value [...] (test code = 0.2 mg/dl 0.0-1.1 IBIL) [address]URIN[address] WITH [id number] 15:51:00 Test Item Value Reference Range Interpretation Comments Color (test code = UCOLR) YELLOW Clarity (test code = UCLAR) CLEAR Glucose (test code = UGLUC) NEGATIVE NEGATIVE N Bilirubin (test code = UBILI) NEGATIVE NEGATIVE N Ketones (test code = UKET) NEGATIVE NEGATIVE N Specific Slick (test code = 1.020 1.005-1.030 A USPGR) [...] code = UBACT) 4+ None Seen,Trace A [address] LAB CHEM [id number] 15:09:00 Test Item Value Reference Range Interpretation [...] (test code = CREA) 0.6 mg/dl 0.6-1.[address] LAB CBC WITH AUTO [id number] 15:08:00 Test Item Value Reference Range Interpretation [...] (test code = IG%) 0.4 % 0.0-0.4 kpj9DbvqbfthMilwaukee [facility][Note 3]-[place]kinCT ABDOMEN/PELVIS W/[id number] 16:33:46NPO 4 hours. Do not withhold medsProcedures: CT ABDOMEN/PELVIS W/CONTRASTExam Date: 05/17/2019 1:31 PMOrdering Physician: MERLE LYNNEClinical Indication: [id number]: Abdominal painComparison: CT abdomen/pelvis, 04/09/19TECHNIQUE: Spiral multislice [...] PMDictated By: ELMER PHAMDate: 05/17/2019 16:27[facility] [id number] 16:20:00 Test Item Value Reference Range Interpretation Comments Lipase (test code = LIPA) 70 U/L 73-393 L Formerly named [facility] LAB CHEM [id number] 15:24:00 Test Item Value Reference Range Interpretation [...] code = CREA) 0.5 mg/dl 0.6-1.3 L Formerly named [facility] LAB LACTIC [id number] 15:23:00 Test Item Value Reference Range Interpretation Comments LACTATE (test code = LAC) 1.39 mmol/l 0.90-1.70 Formerly named [facility] LAB CBC WITH AUTO [id number] 15:21:00 Test Item Value Reference Range Interpretation [...] code = IG%) 0.5 % 0.0-0.4 H [facility][Note 3]-LufkinURINALYSIS WITH [id number] 15:08:00 Test Item Value Reference Range Interpretation Comments Color (test code = UCOLR) YELLOW Clarity (test code = UCLAR) CLEAR Glucose (test code = UGLUC) NEGATIVE NEGATIVE N Bilirubin (test code = UBILI) NEGATIVE NEGATIVE N Ketones (test code = UKET) NEGATIVE NEGATIVE N Specific Slick (test code = 1.025 1.005-1.030 A USPGR) [...] code = UBACT) 2+ None Seen,Trace A [facility][Note 3]-LufkinCT ANGIO HEAD W/WO [id number] 16:28:5720 g Cathlon Above the Antecubital or higher requiredProcedure: CT ANGIO HEAD W/WO CONTRASTOrder Date: 05/12/2019 3:30 PMOrdering Provider: REHAN VANG SA NDERSClinical Indication: [id number]: HeadacheComparison: NoneTechnique: Using a helical scanner, sequential axial imaging of the brain wasobtained before and after the administration of the contrast medium. At anindependent workstation, 3-D reconstructions of the [place] of [place] wereobtained.This examwas performed according to [...] PMDictated By: FARZAD DEWITTDate: 05/12/2019 16:22[facility] ABDOMEN/PELVIS W/[id number] 14:36:05NPO 4 hours. Do not withhold medsProcedure: [...] MD 04/09/20192:29 PMDictated By: GLORY BENITEZKDate: 04/09/2019 14:29[facility] WITH AUTO [id number] 09:02:00 Test Item Value Reference Range Interpretation [...] code = 0.5 % 0.0-0.4 H IG%) [facility][Note 3]-[facility] WITH AUTO [id number] 09:14:00 Test Item Value Reference Range Interpretation [...] (test code = 0.4 % 0.0-0.4 IG%) [facility][Note 3]-[id number] 09:12:00 Test Item Value Reference Range Interpretation [...] 0.5-1.3 code = CREA) EGFR if >60 [place] (test code mL/min/1.73m\\ = EGFRAA) S\\2 EGFR if Non- >60 Estimate d Glomerular [place] (test code mL/min/1.73m\\ Filtrat ion Rate (eGFR) [...] and management of c hronic kidney failure. [facility][Note 3]-LufkinSP PERC PLMNT MIDLINE NO PORT > 5 [...] MD 04/07/20194:05 PMDictated By: WILEY VELÁZQUEZDate: 04/07/2019 16:05[facility] CENTERCT ABDOMEN/PELVIS W/[id number] 22:50:40PROCEDURE INFORMATION:Exam: CT Abdomen and pelvis with [...] PM CDT.Dictated By: ELMER PHAMDate: 04/04/2019 22:50[facility][id number] 21:22:00 Test Item Value Reference Range Interpretation Comments Lipase (test code = LIPA) 89 U/L 73-393 [facility][Note 3]-EchoHEPATIC FUNCTION PANEL (LIVER)2019-04-04 21:22:00 Test Item Value [...] (test code = 0.3 mg/dl 0.0-1.1 IBIL) Formerly named [facility] LAB CHEM [id number] 21:07:00 Test Item Value Reference Range Interpretation [...] (test code = CREA) 0.6 mg/dl 0.6-1.3 Formerly named [facility] LAB URINALYSIS WITHOUT [id number] 21:05:00 Test Item Value Reference Range Interpretation Comments Color (test code = UCOLR) Yellow Lt. Yellow A Clarity (test code = UCLAR) Slightly Cloudy Glucose (test code = UGLUC) 100 Negative A Bilirubin (test code = UBILI) Negative Negative N Ketones (test code = UKET) Negative Negative N Specific Slick (test code = >=1.030 1.005-1.030 A USPGR) Blood (test code = UBLD) Negative Negative N PH (test code = UPH) 5.5 4.5-8.0 A Protein (test code = UPROT) Negative Negative N Urobilinogen (test code = U 0.2 >0.2 N UROB) Nitrite (test code = UNITR) Negative Negative N Leukocyte Esterase (test code Negative Negative N = ULEUK) Formerly named [facility] LAB CBC WITH AUTO [id number] 21:04:00 Test Item Value Reference Range Interpretation [...] code = IG%) 0.5 % 0.0-0.4 H [facility][Note 3]-[facility] CenterkinSTAT LAB , [id number] 21:04:00 Test Item Value Reference Range Interpretation Comments (Urine) (test code = Negative PREGU) ONLY AVAILABLE 8A-12[facility]LufkinED2 [id number] 16:05:00 Test Item Value Reference Range Interpretation Comments Sodium (test code = CANCELED mmol/l The r eleased value NA) 141 was cancele d by [id number] on 04/04/2019 16:0 5 Potassium (test code CANCELED mmol/l The released value = K) 3.9 was cancele d by [id number] on 04/04/2019 16:0 5 CO2 (test code = CANCELED mmol/l The rele ased value CO2) 23 was canceled by [id number] on 04/04/2019 16:0 5 Chloride (test code CANCELED mmol/l The r eleased value = CL) 108 was cancele d by [id number] on 04/04/2019 16:0 5 Glucose (test code = CANCELED mg/dl The r eleased value GLU) 96 was canceled by [id number] on 04/04/2019 16:0 5 Calcium (test code = CANCELED mg/dl The r eleased value CALC) 8.8 was cancele d by [id number] on 04/04/2019 16:0 5 BUN (test code = CANCELED mg/dl The relea sed value BUN) 11 was canceled by [id number] on 04/04/2019 16:0 5 Creatinine (test CANCELED mg/dl code = CREA) [facility][Note 3]-LufkinHISTOLOGY [id number] 11:08:00 [address] [place], [place] [address]Gylhs: [phone] OOQF #: [id number] MedicalDirector: Seth Valdez M.D.Surgical Pathology Consultation ReportPatient Name: LAUREN BETH Case #: [id number] Med. Rec. #:[id number] [facility] Date: 03/21/2019 : 1985(Age:33) Received: 03/23/2019 [...] greatest dimension. The cystsarefilled with clearserous fluid. Distance Education Teacher sections of the ovaryandpossible fallopian tube are submitted in cassettes A1-A8. /03/23/2019 Seth Valdez MD, Board Certified in Anatomic Pathology Microscopic DescriptionMicroscopic examination of the right ovary reveals fibrovascularadhesionsalong the surface of the ovary as well as along the accompanyingfallopiantube. The ovarian parenchyma contains follicular cysts, benign serouscyst,as well as numerous corpus albicans. No areas of endometriosis areseen. Billing Fee Code(s): A; [id number]]-Echo- US TRANSVAGINAL W/[id number] 16:45:00 Patient Name: ADELIA BETH Unit No: [id number] EXAMS: CPT CODE: [id number] US TRANSVAGINAL W/PELVIS 90158 CLINICAL HISTORY: Right lower quadrant pain. Status [...] flow is identified in theright ovary. at 2809 Reported and signedby: Mario Guidry MD CC: Hilaria Calderón MD Technologist: Dipesh Miranda RDMS, RVT Probe: [id number] Trnscrbd D/ (6601) AtilioS Orig Print D/T: S: 03/10/2019 (8154) [facility]: ADELIA BETH Radiology Department PHYS: Hilaria Maldonado [address] : 1985 AGE: 33 SEX: F [place] [address] LOC: ALONDRA PHONE #: [phone] EXAM DATE: 03/10/2019 STATUS: REG ER FAX #: [phone] RAD NO: Page 1 Signed Report Patient Name: ADELIA BETH Unit No: [id number] EXAMS: CPT CODE: [id number] US TRANSVAGINAL W/PELVIS 32159 <Continued> [facility] NAME: ADELIA BETH Radiology Department PHYS: Hilaria Maldonado [address] : 1985 AGE: 33 SEX: [place] [address] LOC: DayanaraERS PHONE #: [phone] EXAM DATE: 03/10/2019 STATUS: REG ER FAX #: [phone] RAD NO: Page 2 Signed Report- US TRANSVAGINAL W/[id number] 16:45:00 Patient Name: LAUREN BETH Unit No: [id number] EXAMS: CPT CODE: [id number] US TRANSVAGINAL W/PELVIS 20797 CLINICAL HISTORY: Right lower quadrant pain. Status [...] MD Technologist: Dipesh Miranda RDMS, T Probe: [id number] Trnscrbd D/ (1645) [email or web address] Orig Print D/T: S: 03/10/2019 (2728) [facility] NAME: LAUREN BETH Radiology Department PHYS: [facility] - Hilaria Calderón [address] : 1985 AGE: 33 SEX: F [place], [place] [address] LOC: ALONDRA PHONE #:[phone] EXAM DATE: 03/10/2019 STATUS: DEP ER FAX #: [phone] RAD NO: [id number] Page 1 Signed Report Patient Name: LAUREN BETH Unit No: [id number] EXAMS: CPT CODE: [id number] US TRANSVAGINAL W/PELVIS 25950 (Continued) [facility] NAME: LAUREN BETH Radiology Department PHYS: BEBECONCHIS.Faustino - Hilaria Calderón [address] : 1985 AGE: 33 SEX: F [place], [place] [address]DCDX NO: [id number] LOC: DayanaraERS PHONE #: [phone] EXAM DATE: 03/10/2019 STATUS: DEP ER FAX #: [phone] RAD NO: [id number] Page 2 Signed Report- US PELVIS [id number] 16:45:00 Patient Name: ADELIA BETH Unit No: [id number] EXAMS: CPT CODE: [id number] US PELVIS COMPLETE 33892 CLINICAL HISTORY: Right lower quadrant pain. Status [...] Dipesh Miranda RDMS, RVT Probe: Trnscrbd D/ (9365) [email or web address] Orig Print D/T: S: 03/10/2019 (9415) [facility] NAME: ADELIA BETH Radiology Department PHYS: Hilaria Maldonado [address] : 1985 AGE: 33 SEX: F [place] [address] LOC: DayanaraERS PHONE #: [phone] EXAM DATE: STATUS: REG ER FAX #: [phone] RAD NO: Page 1 Signed Report Patient Name: ADELIA BETH Unit No: [id number] EXAMS: CPT CODE: [id number] US PELVIS COMPLETE 97470 <Continued> [facility] NAME: ADELIA BETH Radiology Department PHYS: Hilaria Maldonado [address] : 1985 AGE: 33 SEX: F [place] [address] LOC: DayanaraERS PHONE #: [phone] EXAM DATE: 03/10/2019 STATUS: REG ER FAX #: [phone] RAD NO: Page 2 Signed Report- US PELVIS [id number] 16:45:00 Patient Name: LAUREN BETH Unit No: [id number] EXAMS: CPT CODE: [id number] US PELVIS COMPLETE 35861 CLINICAL HISTORY: Right lower quadrant pain. Status [...] Dipesh Miranda RDMS, RVT Probe: Trnscrbd D/ (6785) [email or web address] Orig Print D/T: S: 03/10/2019 (2572) [facility] NAME: LAUREN BETH Radiology Department PHYS: BEBEAL. - Hilaria Calderón [address] : 1985 AGE: 33 SEX: F [place], [place] [address] LOC: ALONDRA PHONE #: [phone] EXAM DATE: 03/10/2019 STATUS: [facility] FAX #: [phone] RAD NO: [id number] Page 1 Signed Report Patient Name: LAUREN BTEH Unit No: [id number] EXAMS: CPT CODE: [id number] US PELVIS COMPLETE [id number] (Continued) [facility] NAME: LAUREN BETH Radiology Department PHYS: BEBEAL. - Hilaria Calderón [address] : 1985 AGE: 33 SEX: F [place], [place] [address] LOC: ALONDRA PHONE #: [phone] EXAM DATE: 03/10/2019 STATUS: DEP ER FAX #: [phone] [facility] NO: [id number] Page 2 Signed ReportCBC W/AUTO DIFF 2019-03-10 [...] = PLTMR) UA RFLX MICR CULT IF [id number] 16:07:00 Test Item Value Reference Range Interpretation [...] A Indication for culture: Suprapubic PainUR HCG [id number] 16:07:00 Test Item Value Reference Range Interpretation [...] culture: Suprapubic PainUA RFLX MICR CULT IF [id number] 16:04:00 Test Item Value Reference Range Interpretation [...] EPIU) Indication for culture: Suprapubic PainUR HCG [id number] 16:04:00 Test Item Value Reference Range Interpretation [...] culture: Suprapubic PainUA RFLX MICR CULT IF [id number] 15:55:00 Test Item Value Reference Range Interpretation [...] RARE-FEW Indication for culture: Suprapubic PainUR HCG [id number] 15:55:00 Test Item Value Reference Range Interpretation [...] and tested. Indication for culture: Suprapubic PainED2 [id number] 01:18:00 Test Item Value Reference Range Interpretation [...] code = MPV) 6.9 fL 8.0-11.0 A [facility][Note 3]-LufkinED2 URINE [id number] 00:55:00 Test Item Value Reference Range Interpretation Comments Color (test code = UCOLR) Yellow Lt. Yellow A Clarity (test code = UCLAR) Clear Glucose (test code = UGLUC) NEGATIVE NEGATIVE N Bilirubin (test code = UBILI) NEGATIVE NEGATIVE N Ketones (test code = UKET) NEGATIVE NEGATIVE N Specific Slick (test code = USPGR) 1.030 1.005-1.030 A Blood (test code = UBLD) NEGATIVE NEGATIVE N PH (test code = UPH) 6.0 4.5-8.0 A Protein (test code = UPROT) Trace NEGATIVE A Urobilinogen (test code = U UROB) 0.2 >0.2 N Nitrite (test code = UNITR) NEGATIVE NEGATIVE N Leukocyte Esterase (test code = NEGATIVE NEGATIVE N ULEUK) [facility][Note 3]-LufkinED2 , [id number] 00:54:00 Test Item Value Reference Range Interpretation Comments (Urine) (test code = Negative PREGU) [facility][Note 3]Nxsunu-[id number] 13:07:00 Test Item Value Reference Range Interpretation Comments Lipase (test code = LIPA) 106 U/L 73-393 [facility][Note 3]-LufkinED2 CT ABDOMEN/PELVIS W/[id number] 12:24:12Procedures: ED2 CT ABDOMEN/PELVIS W/CONTRASTExam Date: 02/07/2019 10:11 AMOrdering Physician: WYATT SOTOMAYORClinical Indication: [id number]: Epigastric painComparison: CT abdomen/pelvis, 01/27/19TECHNIQUE: Spiral multislice [...] 12:17 PMDictated By: ELMER PHAMDate: 02/07/2019 12:17[facility] [address]2019-08-10 10:48:00 Test Item Value Reference Range [...] (test code = TP) 7.6 gm/dl 6.4-8.1 [place] [address] URINE [id number] 10:45:00 Test Item Value Reference Range Interpretation Comments Color (test code = UCOLR) Yellow Lt. Yellow A Clarity (test code = UCLAR) Sl Cloudy Glucose (test code = UGLUC) NEGATIVE NEGATIVE N Bilirubin (test code = UBILI) NEGATIVE NEGATIVE N Ketones (test code = UKET) NEGATIVE NEGATIVE N Specific Slick (test code = 1.025 1.005-1.030 A USPGR) Blood (test code = UBLD) NEGATIVE NEGATIVE N PH (test code = UPH) 5.5 4.5-8.0 A Protein (test code = UPROT) NEGATIVE NEGATIVE N Urobilinogen (test code = U UROB) 0.2 >0.2 N Nitrite (test code = UNITR) NEGATIVE NEGATIVE N Leukocyte Esterase (test code = NEGATIVE NEGATIVE N ULEUK) [facility] , [id number] 10:45:00 Test Item Value Reference Range Interpretation Comments (Urine) (test code = Negative PREGU) [place] [address] [id number] 10:44:00 Test Item Value Reference Range Interpretation [...] code = MPV) 6.8 fL 8.0-11.0 A [facility][Note 3]-LufkinCT ABDOMEN/PELVIS W/[id number] 12:29:19s/p hysterectomy; rlq painProcedure: CT ABDOMEN/PELVIS W/CONTRASTOrder Date: 01/27/2019 10:57 AMOrdering Provider: DR LEXUS CASTREJON ACOSTAClinical Indication: [id number]: Abdominal painComparison: September 30, 2018TECHNIQUE:The abdo men [...] MD 01/27/201912:23 PMDictated By: GLORY BENITEZKDate: 01/27/2019 12:23[facility] DALEURINALYSIS WITH [id number] 12:10:00 Test Item Value Reference Range Interpretation Comments Color (test code = UCOLR) YELLOW Clarity (test code = UCLAR) CLEAR Glucose (test code = UGLUC) NEGATIVE NEGATIVE N Bilirubin (test code = UBILI) NEGATIVE NEGATIVE N Ketones (test code = UKET) NEGATIVE NEGATIVE N Specific Slick (test code = USPGR) <=1.005 1.005-1.030 A [...] code = UBACT) Trace None Seen,Trace N [facility][Note 3]Evulyr-[id number] 11:49:00 Test Item Value Reference Range Interpretation Comments Lipase (test code = LIPA) 91 U/L 73-393 [facility] CenterAMYLASE, [id number] 11:49:00 Test Item Value Reference Range Interpretation Comments Amylase (test code = AMYL) 45 U/L 25-115 [facility] LAB CHEM [id number] 11:25:00 Test Item Value Reference Range Interpretation [...] code = CREA) 0.5 mg/dl 0.6-1.3 L [facility] named [facility] LAB CBC WITH AUTO [id number] 11:23:00 Test Item Value Reference Range Interpretation [...] code = IG%) 0.6 % 0.0-0.4 H [facility] PELVIS [id number] 07:55:25h/o complex right ovarian cystsProcedure: Pelvic ultrasound.CLINICAL INDICATION: Right lower quadrant pain. Status post hysterectomyOrder Date: 12/07/2018 2:07 AMCOMPARISON: CT abdomen and pelvis September 30, 2018 as well as pelvic ultrasoundNov2017TECHNIQUE: Transabdominal sonography was performed with color flow [...] Velázquez MD 12/07/20187:49 AMDictated By:WILEY VELÁZQUEZDate: 12/07/2018 07:49[facility] [id number] 03:11:00 Test Item Value Reference Range Interpretation Comments Lipase (test code = LIPA) 136 U/L 73-393 [facility] CenterHEPATIC FUNCTION PANEL (LIVER)2018-12-07 03:10:00 Test [...] (test code = 0.1 mg/dl 0.0-1.1 IBIL) [facility] LAB CHEM [id number] 02:41:00 Test Item Value Reference Range Interpretation [...] code = CREA) 0.5 mg/dl 0.6-1.3 L [facility] named [facility] LAB CBC WITH AUTO [id number] 02:39:00 Test Item Value Reference Range Interpretation [...] code = IG%) 0.5 % 0.0-0.4 H [facility][Note 3]-LufkinURINALYSIS WITH [id number] 02:37:00 Test Item Value Reference Range Interpretation Comments Color (test code = UCOLR) YELLOW Clarity (test code = UCLAR) CLEAR Glucose (test code = UGLUC) 500 NEGATIVE A Bilirubin (test code = UBILI) NEGATIVE NEGATIVE N Ketones (test code = UKET) TRACE NEGATIVE A Specific Slick (test code = USPGR) >=1.030 1.005-1.030 A [...] code = UBACT) 2+ None Seen,Trace A [facility][Note 3]-LufkinCULTURE, [id number] 07:39:00CULTURE RIGHT ABDOMEN WOUND CARE DEPTSpecimen: AbdomenCollected: [...] Sc (+/-) Negative - ICR (+/-) Negative -[facility][Note 3]-LufkinXR CHEST AP/PA 1 [id number] 05:15:17Procedure: XR CHEST AP/PA 1 VIEWOrder Date: 09/30/2018 8:28 PMOrdering Provider: DIMAS Haskinsinical Indication: [id number]: Acute chest painComparison: May 13, 2017Findings:Cardiac size is magnified by technique.Pulmonary vasculature is normal.Mediastinal contour is normal.Aortic contour is normal.There is no consolidation or effusion.There is no evidence of active tuberculosis.There is no mass or pneumothorax.There is no skeletal abnormality.Impression: Negative AP portable chest x-ray.This final report was electronically signed by Dr Farzad Dewitt MD 10/01/20185:08 AMDictated By: FARZAD DEWITTDate: 10/01/2018 05:08 [facility]LV[facility] W/O [id number] 00:42:26NPO 4 hours. Do not withhold medsEXAM:CT [...] supraumbilical anterior abdominal wall hernia containing fatjust tothe right of midline, the hernia sac measuring a maximal diameter ofapproximately 2 cm (image 50 series 2). There are several surgical clips in theanterior subcutaneous fat of the right abdomen. In this location there is anapproximately 4 x 2 cm focus of fluid attenuation with adjacent patchyopacitiesand segmental skin thickening concerning for inflammation/cellulitis(e.g. image 37 series 2). Evaluation for an abscess is limited due to lack ofintravenous contrast.Vasculature: No abdominal aortic ane urysm. Calcified pelvic phleboliths.Lymph nodes: No enlarged lymph nodes.Other: Please note that lack of intravenous contrast limits evaluation of [...] 201812:42 AM CDT.Dictated By: REHAN AZARDate: 10/01/2018 00:42MM[facility]'S MEDICAL [id number] 21:37:00 Test Item Value Reference Range Interpretation Comments Lipase (test code = LIPA) 82 U/L 73-393 [facility][Note 3]-EchoHEPATIC FUNCTION PANEL (LIVER)2018-09-30 21:37:00 Test Item Value [...] (test code = 0.5 mg/dl 0.0-1.1 IBIL) [facility] named [facility] LAB CHEM [id number] 21:10:00 Test Item Value Reference Range Interpretation [...] code = CREA) 0.5 mg/dl 0.6-1.3 L [facility] named [facility] LAB CBC WITH AUTO [id number] 21:09:00 Test Item Value Reference Range Interpretation [...] (test code = IG%) 0.3 % 0.0-0.4 [facility][Note 3]-Chantal LADD,TWP-[id number] 12:44:00 RUN DATE: 09/04/18 [facility] PAGE 1 RUN TIME: 1454 Specimen Inquiry RUN USER: INTERFACE --PATIENT: LAUREN BETH LOC: KOURTNEY U #: [id number] AGE/SX: 33/F ROOM: [facility] RE09/02/18ROBERT DR: Elmer Flores : 87 BED: A DIS: 09/03/18 STATUS: DIS Coty TLOC: SPEC #: [id number] RECD: 09/02/18-819 STATUS: KWAME GARCIA #: [id number] EMLISSA: 09/02/18- SUBM DR: Elmer Flores Meenu III ENTERED: 09/03/18 SP TYPE: MUSA PELAYO DR: ORDERED: LEVEL IV CODES: A52010 - OVARY, NOS PROCEDURES: LEVEL IV (Incomplete) TISSUES: OVARY, NOS - RIGHT OVARIAN CYST CLINICAL HISTORY 33 year old, acute pelvic pain (wpd) FINAL DIAGNOSIS Right ovarian cyst, excision: - benign simple cyst of ovary Tissue code 1 CPT code(s): 26603 [facility] 09/04/18 GROSS DESCRIPTION ANATOMIC SOURCE [...] with multiple yellow-orange, centrally hemorrhagic corpora lutea. Distance Education Teacher sections are submitted as A and B. telma/bere 09/03/18 @ 1343 Signed Amaris Wharton MD 09/04/18 1244 END OF REPORT ELLE W/JUVE [id number] 03:10:00 Test Item Value Reference Range Interpretation [...] NORMAL NORMAL code = PLTMR) CHEMISTRY 7 [id number] 14:15:00 Test Item Value Reference Range Interpretation [...] CA) 9.2 mg/dL 8.4-10.2 N CBC W/AUTO [id number] 13:42:00 Test Item Value Reference Range Interpretation [...] NORMAL NORMAL code = PLTMR) US INTRAVAGINAL [id number] 12:35:09Procedure: Pelvic ultrasound.CLINICAL INDICATION: Pelvic pain. Status [...] MD 09/01/201812:28 PMDictated By: WILEY VELÁZQUEZDate: 09/01/2018 12:28[facility] CBC WITH AUTO [id number] 11:31:00 Test Item Value Reference Range Interpretation [...] RS88 71 on 09/01/2018 11:31 ONLY AVAILABLE [address] [place] [address]LVIS W/O [id number] 11:11:01MLP CProcedure: CT ABDOMEN/PELVIS W/O CONTRASTOrder Date: 09/01/2018 9:28 AMOrdering Provider: CHIN Guilleninical Indication: [id number]: Abdominal pain. Left lower quadrant painComparison: 12/24/2017TECHNIQUE:CT [...] 09/01/201811:04 AMDictatedBy: GLORY BENITEZKDate: 09/01/2018 11:04[facility] LAB CHEM [id number] 10:26:00 Test Item Value Reference Range Interpretation [...] CREA) 0.4 mg/dl 0.6-1.3 L ONLY AVAILABLE 8A-12[facility] LAB URINALYSIS WITHOUT [id number] 09:59:00 Test Item Value Reference Range Interpretation Comments Color (test code = UCOLR) Yellow Lt. Yellow A Clarity (test code = UCLAR) Clear Glucose (test code = UGLUC) NEGATIVE Negative A Bilirubin (test code = UBILI) NEGATIVE Negative A Ketones (test code = UKET) NEGATIVE Negative A Specific Slick (test code = USPGR) 1.015 1.005-1.030 A Blood (test code = UBLD) NEGATIVE Negative A PH (test code = UPH) 7.0 4.5-8.0 A Protein (test code = UPROT) NEGATIVE Negative A Urobilinogen (test code = U UROB) 0.2 >0.2 N Nitrite (test code = UNITR) NEGATIVE Negative A Leukocyte Esterase (test code = NEGATIVE Negative A ULEUK) ONLY AVAILABLE [address] [place] [address]-[facility] 2018-05-13 13:26:23Procedure: Pelvic [...] PMDictated By: WILEY VELÁZQUEZDate: 05/13/2018 13:20[facility] LAB CBC WITH AUTO [id number] 12:22:00 Test Item Value Reference Range Interpretation [...] (test code = 0.2 % 0.0-0.4 IG%) [facility][Note 3]-[facility] LAB CBC WITH AUTO [id number] 11:54:00 Test Item Value Reference Range Interpretation [...] 0.5 % 0.0-0.4 H IG%) ONLY AVAILABLE -12[facility] LAB URINALYSIS WITHOUT [id number] 11:25:00 Test Item Value Reference Range Interpretation Comments Color (test code = UCOLR) Yellow Lt. Yellow A Clarity (test code = UCLAR) Clear Glucose (test code = UGLUC) NEGATIVE Negative A Bilirubin (test code = UBILI) NEGATIVE Negative A Ketones (test code = UKET) NEGATIVE Negative A Specific Slick (test code = USPGR) 1.020 1.005-1.030 A Blood (test code = UBLD) NEGATIVE Negative A PH (test code = UPH) 7.0 4.5-8.0 A Protein (test code = UPROT) NEGATIVE Negative A Urobilinogen (test code = U UROB) 0.2 >0.2 N Nitrite (test code = UNITR) NEGATIVE Negative A Leukocyte Esterase (test code = NEGATIVE Negative A ULEUK) ONLY AVAILABLE [address] [place] [address] LAB , URINE 2018-05-13 11:25:00 Test Item Value Reference Range Interpretation Comments (Urine) (test code = Negative PREGU) ONLY AVAILABLE [address] [place] [address] LAB CHEM [id number] 11:23:00 Test Item Value Reference Range Interpretation [...] CREA) 0.5 mg/dl 0.6-1.3 L ONLY AVAILABLE [address] [place] [address]kinUS INTRAVAGINAL PELVIS 2017-12-24 12:50:53Procedure: Pelvic [...] PMDictated By: WILEY VELÁZQUEZDate: 12/24/2017 12:50[facility]INAL[facility] WITH [id number] 10:22:00 Test Item Value Reference Range Interpretation Comments Color (test code = UCOLR) Yellow Clarity (test code = UCLAR) Clear Glucose (test code = UGLUC) NEGATIVE NEGATIVE N Bilirubin (test code = UBILI) NEGATIVE NEGATIVE N Ketones (test code = UKET) NEGATIVE NEGATIVE N Specific Slick (test code = USPGR) 1.025 1.005-1.030 A [...] code = UBACT) Trace None Seen,Trace N [facility][Note 3]-fkinLIPASE, [id number] 10:05:00 Test Item Value Reference Range Interpretation Comments Lipase (test code = LIPA) 40 U/L 8-223 [facility][Note 3]-[id number] 10:05:00 Test Item Value Reference Range Interpretation [...] ( 4 - SerumAlbumin)] EGFR if >60 [place] (test code mL/min/1.73m\\ = EGFRAA) S\\2 EGFR if Non- >60 Estimate d Glomerular [place] (test code mL/min/1.73m\\ Filtrat ion Rate (eGFR) [...] and management of c hronic kidney failure. [facility][Note 3]-LufkinCT ABD/ PELVIS W/O CON (RENAL STONE)2017-12-24 09:38:31Procedure: [...] MD 12/24/20179:32 AMDictated By: WILEY VELÁZQUEZDate: 12/24/2017 09:38[facility] WITH AUTO DIFF 2017-12-24 09:26:00 Test [...] IG%) AUTO [facility]kinCT ABD/ PELVIS W/O CON (RENAL STONE) [...] on 3:19 AMCDT.Dictated By: MARVIN DOBBSDate: 06/21/2017 03:20[facility]ENTER[facility]INALYSIS WITH [id number] 03:20:00 Test Item Value Reference Range Interpretation Comments Color (test code = UCOLR) YELLOW Clarity (test code = UCLAR) CLEAR Glucose (test code = UGLUC) NEGATIVE NEGATIVE N Bilirubin (test code = UBILI) NEGATIVE NEGATIVE N Ketones (test code = UKET) NEGATIVE NEGATIVE N Specific Slick (test code = 1.020 1.005-1.030 A USPGR) [...] UBACT) None Seen None Seen,Trace N er [address] [place], [place] [address]fkinCMP2017-12-22 03:07:00 Test Item Value Reference Range Interpretation [...] ( 4 - SerumAlbumin)] EGFR if >60 [place] (test code mL/min/1.73m\\ = EGFRAA) S\\2 EGFR if Non- >60 Estimate d Glomerular [place] (test code mL/min/1.73m\\ Filtrat ion Rate (eGFR) [...] management of c hronic kidney failure. er [address] [place] [address]-fkinLIPASE, [id number] 03:07:00 Test Item Value Reference Range Interpretation Comments Lipase (test code = LIPA) 61 U/L 8-[address] [place] [address]-fkinCBC WITH AUTO [id number] 03:05:00 Test Item Value Reference Range Interpretation [...] (test code = 0.4 % 0.0-0.4 IG%) [address]-LufkinXR CHEST 2 PA [id number] 19:56:04 Procedure: XR CHEST 2 PA LATERALExam date: 05/13/2017 3:53 PMOrdering Provider: DR ASA BLOOMClinical Indication: fatigue, Chest painComparison: March 15, 2016Findings:Cardiomediastinal silhouette is within normal limits.The lungs are clear.No pleural effusion or pneumothorax. Osseous structures are nonacute.No evidence of active tuberculosis.Impression:No acute cardiopulmonary process.This final report was electronically signed by Dr Wiley Velázquez MD 05/13/20177:49 PMDictated By: WILEY VELÁZQUEZDate: 05/13/2017 19:55[facility] [place] [id number] 16:53:00 Test Item Value Reference Range Interpretation [...] ( 4 - SerumAlbumin)] EGFR if >60 [place] (test code mL/min/1.73m\\ = EGFRAA) S\\2 EGFR if Non- >60 Estimate d Glomerular [place] (test code mL/min/1.73m\\ Filtrat ion Rate (eGFR) [...] and management of c hronic kidney failure. [facility][Note 3]-[facility] (HEMO[facility] ONLY)2017-05-13 16:32:00 Test Item Value Reference [...] WILL BE NOTED ON THE RE PORT. [facility][Note 3]-LufkinURINALYSIS WITH [id number] 18:25:00 Test Item Value Reference Range Interpretation Comments Color (test code = UCOLR) YELLOW Clarity (test code = UCLAR) CLEAR Glucose (test code = UGLUC) NEGATIVE NEGATIVE N Bilirubin (test code = UBILI) NEGATIVE NEGATIVE N Ketones (test code = UKET) NEGATIVE NEGATIVE N Specific Slick (test code = 1.025 1.005-1.030 A USPGR) [...] MISC) None Seen None Seen N [facility] PANEL (LIVER)2016-10-09 18:21:00 Test Item [...] (test code = 0.1 mg/dl 0.0-1.1 IBIL) [facility][Note 3]-[id number] 18:21:00 Test Item Value Reference Range Interpretation [...] mg/dl 8.4-10.2 = CALC) EGFR if >60 [place] (test code mL/min/1.73m\\ = EGFRAA) S\\2 EGFR if Non- >60 Estimate d Glomerular [place] (test code mL/min/1.73m\\ Filtrat ion Rate (eGFR) [...] management of c hronic kidney failure. [facility]LufkinCBC WITH AUTO [id number] 18:04:00 Test Item Value Reference Range Interpretation [...] Auto (test code = 0 NRBC_AUTO) AUTO [facility]
[2022-08-02] MEDS ORDERED: PROMETHAZINE INJ 25 MG/ML AMP ONE (00:53)
[2022-08-02] MEDS ORDERED: FENTANYL CITR 100 MCG/2 ML ONE ×2 (00:53→02:30)
[2022-08-02] MEDS ORDERED: NA CHLORIDE 0.9% 1,000 ML ONE (00:54)
[2022-08-02] MEDS ORDERED: FAMOTIDINE 20 MG/2 ML VIAL IV ONE (00:54)
[2022-08-02] MEDS ORDERED: LIDOCAINE 1% MPF 2 ML AMPULE ONE (00:54)
[2022-08-02 01:36] LABS: Absolute Lymphocytes (CBC) 2.3 K/uL (0.7-4.9); Hematocrit 37.5 % (36.0-45.0); Lymphocytes % 22.5 % (15.3-44.8); MCV 89.6 fL (80-100); MPV 7.1 fL (7.6-11.3); RBC Red Blood Cell Count 4.19 M/uL (3.86-4.86)
[2022-08-02 02:07] LABS: Urine Blood Trace-intact (Negative); Urine Glucose Negative (Negative); Urine Protein Negative (Negative); Urine Specific Gravity >=1.030 (1.005-1.030)
[2022-08-02 02:09] LABS: Albumin 3.2 g/dL (3.4-5.0); Bilirubin Total 0.2 mg/dL (0.2-1.0); Potassium 3.7 mmol/L (3.5-5.1); Protein, Total 6.9 g/dL (6.4-8.2)
[2022-08-02 02:20] LABS: Urine Bacteria <20 /HPF (<20); Urine Mucus 2+ /HPF (None Seen); Urine RBC <5 /HPF (None Seen)
[2022-08-02] MEDS ORDERED: DICYCLOMINE HCL 20 MG/2 ML AMP IM ONE (02:30)
--- NOTE | 2022-08-02 02:47 | ER ---
Nurse's Notes [facility] Name: Hong Pace Age: 37 yrs Sex: Female : 1985 Arrival Date: 08/01/2022 Time: 23:53 Bed 8 Private MD: Diagnosis: Abdominal pain, unspecified;Nausea Presentation: 08/02 00:17 Chief complaint: Chief complaint: Patient states: I have pain in my stomach that kd3 started two hours ago. Its sharp and it wont stop. I have been throwing up since then. Coronavirus screen: Vaccine status: Patient reports being unvaccinated. Ebola Screen: No symptoms or risks identified at this time. Initial Sepsis Screen: Does the patient meet any 2 criteria? No. Patient's initial sepsis screen is negative. Does the patient have a suspected source of infection? No. Patient's initial sepsis screen is negative. Risk Assessment: Do you want to hurt yourself or someone else? Patient reports no desire to harm self or others. Onset of symptoms was August 02, 2022. 00:17 Method Of Arrival: Ambulatory kd3 00:17 Acuity: [place] 3 kd3 Triage Assessment: 00:21 General: Appears uncomfortable, Behavior is calm, cooperative. Pain: Complains of pain kd3 in abdomen. GI: Reports vomiting. 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 - Social history:: Smoking status: Patient reports the use of cigarette tobacco products, denies chronic smoking, but will smoke occasionally. Screenin:54 [facility] ED Fall Risk Assessment (Adult) History of falling in the last 3 months, ll3 including since admission No falls in past 3 months (0 pts) Score/Fall Risk Level 0 - 2 = Low Risk Oriented to surroundings, Maintained a safe environment, Educated pt \T\ family on fall prevention, incl call for assistance when getting out of bed. Abuse screen: Denies threats or abuse. Denies injuries from another. Nutritional screening: No deficits noted. Tuberculosis screening: No symptoms or risk factors identified. Assessment: 02:32 General: Appears uncomfortable, Behavior is calm, cooperative. Pain: Complains of pain ll3 in left lower quadrant Pain does not radiate. Pain currently is 10 out of 10 on a pain scale. Neuro: Level of Consciousness is awake, alert, obeys commands, Oriented to person, place, time, situation. GI: Bowel sounds present X 4 quads. Abdomen is tender to palpation in left lower quadrant Reports nausea. Vital Signs: 00:17 BP 130 / 96; Pulse 118; Resp 20; Temp 98.3(O); Pulse Ox 98% ; Weight 108.86 kg; Height kd3 5 ft. 4 in. (162.56 cm); Pain 9/10; 02:33 BP 103 / 58; Pulse 91; Resp 18; Pulse Ox 98% on R/A; ll3 00:17 Body Mass Index 41.20 (108.86 kg, 162.56 cm) kd3 ED Course: 08/01 23:53 Patient arrived in ED. ja2 23:58 Cole Abbott PA is PHCP. cp 23:58 Aleks Solis MD is Attending Physician. cp 02 00:21 Triage completed. kd3 00:21 Arm band placed on left wrist. kd3 01:34 CBC with Diff Sent. kd3 01:34 CMP Sent. kd3 01:34 Lipase Sent. kd3 01:34 Inserted saline lock: 20 gauge in right antecubital area, using aseptic technique. kd3 Blood collected. 02:06 CT Abd/Pelvis - IV Contrast Only In Process Unspecified. EDMS 02:54 Patient has correct armband on for positive identification. Placed in gown. Bed in low ll3 position. Call light in reach. Side rails up X 1. 02:54 No provider procedures requiring assistance completed. IV discontinued, intact, ll3 bleeding controlled, No redness/swelling at site. Pressure dressing applied. Administered Medications: 01:33 Drug: fentaNYL (PF) 25 mcg Route: IVP; Site: right antecubital; kd3 02:32 Follow up: Response: No adverse reaction; No change in condition ll3 01:34 Drug: NS 0.9% 1000 ml Route: IV; Rate: 1 bolus; Site: right antecubital; kd3 02:55 Follow up: Response: No adverse reaction; IV Status: Completed infusion; IV Intake: ll3 1000ml 01:34 Drug: Pepcid (famotidine) 20 mg Route: IVP; Site: right antecubital; kd3 02:32 Follow up: Response: No adverse reaction ll3 01:34 Not Given (Physician Discretion): Phenergan (promethazine) 25 mg IM once kd3 01:34 Drug: Phenergan (promethazine) 25 mg Route: IVP; Site: right antecubital; kd3 02:32 Follow up: Response: No adverse reaction; Marked relief of symptoms; Nausea is decreasedll3 02:31 Drug: Dicyclomine 20 mg Route: IM; Site: right gluteus; ll3 02:54 Follow up: Response: No adverse reaction; Marked relief of symptoms ll3 02:32 Drug: fentaNYL (PF) 25 mcg Route: IVP; Site: right antecubital; ll3 02:54 Follow up: Response: No adverse reaction; Marked relief of symptoms ll3 Medication: 02:55 VIS not applicable for this client. ll3 Intake: 02:55 IV: 1000ml; Total: 1000ml. ll3 Outcome: 02:47 Discharge ordered by . cp 02:54 Discharged to home ambulatory, with family. ll3 02:54 Condition: stable 02:54 Discharge instructions given to patient, family, Instructed on discharge instructions, follow up and referral plans. Demonstrated understanding of instructions, follow-up care. 02:55 Patient left the ED. ll3 Signatures: Dispatcher [employer] EDMS Cole Abbott PA PA cp Alexander, Jessica ja2 Loubet, Lynsea, RN RN ll3 Oralia Varma RN RN kd3
--- NOTE | 2022-08-02 02:47 | EDPHYS ---
Physician Documentation [facility] Name: Hong Pace Age: 37 yrs Sex: Female : 1985 Arrival Date: 08/01/2022 Time: 23:53 Bed 8 Private MD: ED Physician Aleks Solis HPI: 08/02 00:45 This 37 yrs old Female presents to ER via Ambulatory with complaints of Abdominal Pain. cp 00:45 The patient presents with abdominal pain in the left lower quadrant. Onset: The cp symptoms/episode began/occurred 2 hour(s) ago. 00:45 The symptoms do not radiate. Associated signs and symptoms: Pertinent positives: cp nausea, passing gas, Pertinent negatives: blood in stools, chest pain, constipation, diarrhea, fever, vomiting. 00:45 The symptoms are described as constant. Severity of pain: in the emergency department cp the pain is unchanged despite home interventions. SURVEY COORDINATOR: 00:21 LMP N/A - Hysterectomy kd3 Historical: - Allergies: 00:21 Morphine; kd3 00:21 Toradol; kd3 - PMHx: 00:21 Endometriosis of vagina; melanoma; kd3 - PSHx: 00:21 section; hysterectomy; Multiple abdominal surgeries; Thyroidectomy; Ovary kd3 removal; Cholecystectomy; - Immunization history:: Adult Immunizations up to date. - Social history:: Smoking status: Patient reports the use of cigarette tobacco products, denies chronic smoking, but will smoke occasionally. ROS: 00:50 Constitutional: Negative for body aches, chills, fever, poor PO intake. cp 00:50 Eyes: Negative for injury, pain, redness, and discharge. cp 00:50 Cardiovascular: Negative for chest pain, edema, palpitations. 00:50 Respiratory: Negative for cough, shortness of breath, wheezing. 00:50 Abdomen/GI: Positive for abdominal pain, nausea, of the left lower quadrant, Negative for vomiting, diarrhea, constipation, anorexia, black/tarry stool, rectal bleeding. 00:50 Back: Negative for pain at rest, pain with movement. 00:50 : Negative for urinary symptoms, vaginal bleeding, vaginal discharge. cp 00:50 Neuro: Negative for altered mental status, dizziness, headache, weakness. 00:50 All other systems are negative. Exam: 00:55 Constitutional: The patient appears in no acute distress, alert, awake, non-toxic, well cp developed, well nourished, overweight 00:55 Head/Face: Normocephalic, atraumatic. cp 00:55 Eyes: Periorbital structures: appear normal, Conjunctiva: normal, no exudate, no cp injection, Sclera: no appreciated abnormality, Lids and lashes: appear normal, bilaterally. 00:55 ENT: External ear(s): are unremarkable, Nose: is normal, Mouth: Lips: moist, Oral cp mucosa: pink and intact, moist, Posterior pharynx: is normal, airway is patent, no erythema, no exudate. 00:55 Chest/axilla: Inspection: normal. 00:55 Cardiovascular: Rate: tachycardic, Rhythm: regular, Edema: is not appreciated, JVD: is not appreciated. 00:55 Respiratory: the patient does not display signs of respiratory distress, Respirations: normal, no use of accessory muscles, no retractions, labored breathing, is not present, Breath sounds: are clear throughout, no decreased breath sounds, no stridor, no wheezing. 00:55 Abdomen/GI: Inspection: scar(s), are noted in the diffusely, Bowel sounds: hyperactive, in all quadrants, Palpation: soft, in all quadrants, severe abdominal tenderness, in the left lower quadrant, rebound tenderness, is not appreciated, voluntary guarding, is elicited in the left lower quadrant. 00:55 Back: pain, is absent, ROM is normal. 00:55 Neuro: Orientation: to person, place \T\ time. Mentation: is normal, Motor: moves all fours, strength is normal, Sensation: is normal. Vital Signs: 00:17 BP 130 / 96; Pulse 118; Resp 20; Temp 98.3(O); Pulse Ox 98% ; Weight 108.86 kg; Height kd3 5 ft. 4 in. (162.56 cm); Pain 9/10; 02:33 BP 103 / 58; Pulse 91; Resp 18; Pulse Ox 98% on R/A; ll3 00:17 Body Mass Index 41.20 (108.86 kg, 162.56 cm) kd3 MDM: 00:24 Patient medically screened. cp 02:46 Data reviewed: vital signs, nurses notes, lab test result(s), radiologic studies, CT cp scan. 02:46 Consideration of Admission/Observation Escalation of care including cp admission/observation considered. I considered the following discharge prescriptions or medication management in the emergency department Medications were administered in the Emergency Department. See MAR. Care significantly affected by the following chronic conditions: chronic pain. Counseling: I had a detailed discussion with the patient and/or guardian regarding: the historical points, exam findings, and any diagnostic results supporting the discharge/admit diagnosis, lab results, radiology results, to return to the emergency department if symptoms worsen or persist or if there are any questions or concerns that arise at home. Response to treatment: the patient's symptoms have markedly improved after treatment. ED course: VSS. Pain improved with meds. Review of [place] prescription website shows patient receives prescribed narcotics with a recent prescription provided this month. Will discharge to home for continued monitoring. CT abdomen negative for acute findings. 08/02 00:39 Order name: CBC with Diff; Complete Time: 02:01 cp 08/02 02:01 Interpretation: Normal except: MPV 7.1. cp 08/02 00:39 Order name: CMP; Complete Time: 02:16 cp 08/02 02:24 Interpretation: Normal except: GLUC 112; AST 12; ALB 3.2; GLOB 3.7; A/G 0.9. cp 08/02 00:39 Order name: Lipase; Complete Time: 02:16 cp 08/02 00:39 Order name: Urine Microscopic Only; Complete Time: 02:23 cp 08/02 02:23 Interpretation: Reviewed. cp 08/02 01:45 Order name: CREATININE WHOLE BLOOD; Complete Time: 02:01 EDMS 08/02 02:07 Order name: Urine Dipstick-Ancillary; Complete Time: 02:16 EDMS 08/02 02:17 Interpretation: Normal except: UKET Trace; UBLD Trace-intact. cp 08/02 00:39 Order name: CT Abd/Pelvis - IV Contrast Only cp 08/02 00:39 Order name: IV Saline Lock; Complete Time: 01:34 cp 08/02 00:39 Order name: Labs collected and sent; Complete Time: 01:34 cp 08/02 00:39 Order name: Urine Dipstick-Ancillary (obtain specimen); Complete Time: 02:07 cp 08/02 00:39 Order name: Urine Test (obtain specimen); Complete Time: 02:07 cp Administered Medications: 01:33 Drug: fentaNYL (PF) 25 mcg Route: IVP; Site: right antecubital; kd3 02:32 Follow up: Response: No adverse reaction; No change in condition ll3 01:34 Drug: NS 0.9% 1000 ml Route: IV; Rate: 1 bolus; Site: right antecubital; kd3 02:55 Follow up: Response: No adverse reaction; IV Status: Completed infusion; IV Intake: ll3 1000ml 01:34 Drug: Pepcid (famotidine) 20 mg Route: IVP; Site: right antecubital; kd3 02:32 Follow up: Response: No adverse reaction ll3 01:34 Not Given (Physician Discretion): Phenergan (promethazine) 25 mg IM once kd3 01:34 Drug: Phenergan (promethazine) 25 mg Route: IVP; Site: right antecubital; kd3 02:32 Follow up: Response: No adverse reaction; Marked relief of symptoms; Nausea is decreasedll3 02:31 Drug: Dicyclomine 20 mg Route: IM; Site: right gluteus; ll3 02:54 Follow up: Response: No adverse reaction; Marked relief of symptoms ll3 02:32 Drug: fentaNYL (PF) 25 mcg Route: IVP; Site: right antecubital; ll3 02:54 Follow up: Response: No adverse reaction; Marked relief of symptoms ll3 Disposition: 03:18 Co-signature as Attending Physician, Aleks Solis MD I reviewed the patient's care rt provided by the Advanced Practice Provider and agree with the diagnosis and treatment plan. Disposition Summary: 08/02/22 02:47 Discharge Ordered Location: Home cp Problem: an ongoing problem cp Symptoms: have improved cp Condition: Stable cp Diagnosis - Abdominal pain, unspecified cp - Nausea cp Followup: cp - With: Private Physician - When: 1 - 2 days - Reason: Recheck today's complaints Discharge Instructions: - Discharge Summary Sheet cp - Abdominal Pain, Adult cp - Chronic Pain, Adult cp - Nausea, Adult cp Forms: - Medication Reconciliation Form cp - Thank You Letter cp - Antibiotic Education cp - Prescription Opioid Use cp Signatures: Dispatcher [employer] Cole Nunez PA PA cp Loubet, Lynsea, RN RN 3 Oralia Varma RN RN kd3 Aleks Solis MD MD rt Corrections: (The following items were deleted from the chart) 02:24 02:16 Normal except: GLUC 112. cp cp 02:24 02:24 Normal except: GLUC 112; AST 12; ALB 3.2; GLOB 3.7. cp cp
[2022-08-02 02:59] VITALS: TEMP 98.3; O2SAT 98
[2022-08-02 03:00] VITALS: BP 103/58
--- NOTE | 2022-08-03 17:15 | RAD REPORT ---
EXAM DESCRIPTION: CT - Abdomen Pelvis W Contrast - 08/02/2022 6:29 am CLINICAL HISTORY: 37 years Female left lower abdomen pain TECHNIQUE: Axial CT imaging of the abdomen and pelvis was performed following the administration of intravenous contrast.. Oral contrast was not administered. Sagittal and coronal reconstructed image s were then performed. The CT study is performed according to ALARA (as low as reasonably achievabl e) or ALARA/IMAGE GENTLY, with automatic adjustment of mA and/or kV according to patient size. Performed on: August 02, 2022 at 1:45 AM. COMPARISON: CT abdomen and pelvis performed on 06/27/2022 FINDINGS: Lung bases: The lung bases are clear. Liver: The liver is normal in size and configuration. No focal hepatic abnormalities are identified. Liver attenuation is within normal limits. The hepatic and portal veins are patent. Spleen: The spleen is normal in size, configuration and attenuation. Gallbladder and bile duct: The gallbladder is surgically absent. There is no biliary ductal dilatat ion. Pancreas: The pancreas is grossly normal in size and configuration. Adrenal Glands: The adrenal glands are normal in size and configuration. Kidneys: The kidneys are normal in size and configuration. There is no evidence of hydronephrosis. Th ere is no evidence of nephrolithiasis. No definite solid or cystic renal mass lesions are identified. Stomach: There are remote postsurgical changes of the stomach consistent with a prior gastric sleeve procedure. There is no definite hiatal hernia. Bowel: The bowel gas pattern is non specific and non obstructive. There is minimal colonic diverticul osis best appreciated along the sigmoid colon. Appendix: The appendix is not clearly identified on this examination. There is no CT evidence to sugg est acute appendicitis. Free air: There is no evidence of free air. Free fluid: There is no evidence of free fluid. Vasculature: The aorta is normal in caliber and contour. The inferior vena cava is grossly unremarkab le. Lymphadenopathy: No pathologic lymphadenopathy is identified. Bladder: The bladder is partially distended on this examination and is grossly unremarkable. Reproductive: The uterus is surgically absent. Bones: No acute osseous abnormalities are identified. Soft tissues: No acute soft tissue abnormalities are identified. There is a small fat-containing vent ral umbilical hernia. IMPRESSION: 1. No evidence of acute intra-abdominal or intrapelvic pathology. There are no definit e findings on this examination to explain the patient's left lower abdominal pain. 2. Remote postsurgical changes of the stomach consistent with a prior gastric sleeve procedure. 3. Remote cholecystectomy and hysterectomy. 4. Small fat-containing ventral umbilical hernia. Electronically signed by: Rebekah Munoz DO 08/02/2022 2:27 AM COAL P[employer]ER Due to temporary technical issues with the PACS/Fluency reporting system, reports are being signed by the in house radiologists without review as a courtesy to insure prompt reporting. The interpreting radiologist is fully responsible for the content of the report.
== END 2022-08-02 02:55 | disposition home or self-care (01) ==
LOC: ER 23:51
DX: R10.32 Left lower quadrant pain (principal); R11.0 Nausea
CPT/HCPCS: 36415; 74177; 80053; 81003; 81015; 82565; 83690; 85025; 96361; 96372; 96374; 96375; 99284; J0500; J2550; J3010; J7030; Q9967

== ENCOUNTER 2022-08-11 22:23 | Emergency (ER) | payer SELFPAY ==
--- OUTSIDE RECORDS SUMMARY | 2022-08-11 22:26 | XMS REPORT | Clinical Summary ---
:1985 Author Organization [facility] MD [facility] Address [address] [place] [address] Care Team Providers Name Role Phone Keila [...] 10/05/2018 Encounter for other preprocedural examination 09/09/19 19 Overview: EKG 09/08/2018 NSR NR 68 Obesity [...] malignant melanoma of skin 10/26/2021 Travel after 08/11/2021 Immunizations Name Administration Dates Next Due Influenza [...] CYST SURGERY 08/29/2018 - Right 09/28/2018 [place] EXCISION MAL LESION 09/23/2018 Abdomen/Right Procedure : EXCISION OF TRUNK/ARM/LEG 0.6-1.0 CM MALIGNA NT LESION OF TRUNK, right epi gastric; Surgeon: Nicolasa Valentine MD; Location: [facility] OR; Service: SURG ON C - MELANOMA [...] 10/25/2022 Follow-Up Dermatology Lisbeth Shannon M D [address] [place], [place] [address] (Wo rk) Health Maintenance Due Date Last Done Comments COVID-19 Vaccination (#1) 01/11/1987 Results Not on fileafter 08/11/2021 Advance Directives Code Status Date Activated Date Inactivated Comments Full Code 10/04/2018 8:21 PM 10/08/2018 5:55 PM Code Status Date Activated Date Inactivated Comments Full Code 09/23/2018 1:48 PM 09/23/2018 6:55 PM Care Teams Call Center Nurse Relationship Specialty Start Date End Date Keila Valentine MD PCP - General Surgical Oncology 08/26/18 [address] [place] [address] Navi Arango FNP PCP - External Primary Family Practice 09/08/18 [address] [place] [place] [address]
--- OUTSIDE RECORDS SUMMARY | 2022-08-11 22:38 | XMS REPORT | Continuity of Care Document ---
:1985 Author Organization [facility] t Address [address] [place] [address] Care Team Providers Name Role Phone Keila Valentine MD Primary Care Physician Josué Arango Attending Clinician Unavailable SANTINO_Melinda Attending Clinician Unavailable MAGDALENE LUCIA Attending Clinician Unavailable Magdalene Lucia MD Attending Clinician Unknown, Attending Attending Clinician Unavailable RIDGE PAGAN Attending Clinician Unavailable Ridge Pagan MD Attending Clinician Truman Quintero Attending Clinician Unavailable TRICE HARRIS Attending Clinician Unavailable Steven BANANA EXPERT, Trice Attending Clinician Mohan KNOWLES, Ameena Attending Clinician AMEENA CASTANEDA Attending Clinician Unavailable Praveen Blas MD Attending Clinician EKTA BERMUDEZ Attending Clinician Unavailable PATRICK CARRANZA Attending Clinician Unavailable Olga Clements Attending Clinician Unavailable LEANNE HANNAH Attending Clinician Unavailable Devora GARCIA, Leanne S Attending Clinician Eve Chaves RN Attending Clinician Unavailable Patrick Schumacher Attending Clinician Doctor Unassigned, [place] Attending Clinician Unavailable SETH DYKES Attending Clinician Unavailable REHAN COTTON Attending Clinician Unavailable Viktoriya Wright RN Attending Clinician JUAN MENSAH Attending Clinician Unavailable MR SKYE MURILLO Attending Clinician Unavailable Tangela Perez Attending Clinician Unavailable DO WYATT SOTOMAYOR Attending Clinician Unavailable AMBROSIO MUÑOZ Attending Clinician Unavailable PRAVEEN BALS Attending Clinician Unavailable ELIUD STAFFORD Attending Clinician [...] No Primary or Family Admitting Clinician Unavaila LEANNE Pitt Admitting Clinician Unavailable SETH DYKES Admitting Clinician [...] Number Effective Date Expiration Date Abhinav durbin [id number] 1958 00:00:00 MEDI-SHARE C1 [id number] [facility] MEDI-SHARE C1 [id number] [facility] MEDI-SHARE C1 [id number] [facility] [id number] 1958 00:00:00 MEDI-SHARE C1 [id number] [facility] PHCS GENERIC [id number] 2018 00:00:00 Problems Condition Condition Condition Status [...] (LUF/LI V/SA) 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 pelvis [facility] (LUF/LI V/SA) Anxiety Anxiety Problem Active [facility] (LUF/LI V/SA) [id number] Endometrio Problem Active [facility] No known No known Disease Unive rs active active ity of problems problems [facility] [place] [facility] Allergies, Adverse Reactions, Alerts Allergy Allergy Status Severity Reaction(s) Onset Inactive Treating Comm ents Source Name Type Date Date Clinician ketorola DA Active AL rash 2021-07 [facility] [place] [facility] [place] DA Active U rash [facility] 2[facility]07 [place] 00:[facility]: [facility] 00 [facility] KETOROLA DRUG Active Low Rash 2020-07 Univers C INGREDI 2- ity of 00:00: [address] Ket[place] Propensi Active Rash 2020-07 Univer s c ty to 2-22 ity of adverse 00:00: [place] reaction 00 [facility] ketorola DA Active AL [facility] 9-10 [facility] 00:[facility] [place] ket[place]ola DA Active U [facility] c 9-24 [place] 00:00: d 00 Medical [place] ketorola DA Active U rash [facility] c 9-24 [place] 00:00: d 00 Medical [place] Ket[place] Drug Active Itching Univers c Allergy 1-19 ity of 00:00: [place] 00 MD [facility] 0 Drug Active Unknown [facility] Toradol DA Active Unknown Rash [facility] (LUF/LI V/SA) Family History Family Member Diagnosis Comments Start Date Stop Date Source Natural mother -Breast cancer [facility] MD [facility] Social History Social Habit Start Date Stop Date Quantity Comments Source History of Tobacco [facility] - Use [facility] ASSERTION [facility] Exposure to 2022-04-27 2022-05-07 Not sure [facility] SARS-CoV-2 (event) 00:00:00 07:55:00 [facility] [place] [facility] Tobacco use and 2021-08-29 2021-08-29 Smokeless Universit y of exposure 00:00:00 00:00:00 tobacco non-user [facility] Alcohol intake 2018-10-04 2018-10-04 Current University of 00:00:00 00:00:00 non-drinker of [place] MD [facility] (finding) Cigarettes smoked 2018-09-04 2018-09-04 Univers ity of current (pack per 00:00:00 00:00:00 [place] Zoltan Neely ) - Reported Cancer Ce nter Cigarette 2018-09-04 2018-09-04 University of pack-years 00:00:00 00:00:00 [facility] Sex Ass[birth year] At [birth year] Universit y of 00:00:00 00:00:00 [place] MD [facility] Smoking Status Start Date Stop Date Source Tobacco smoking [facility] consumption unknown Never smoked tobacco [facility] Former Smoker 2020-05-03 00:00:00 2020-05-03 [facility] nter Medications Ordered Filled Start Stop Current Ordering Indication Dosage Frequency Signature Comments Components Source Medication Medication Date Date Medication? Clinician (SIG) Name Name ondansetron 2021-07- No [id number] 8mg Univers (ZOFRAN-ODT 2-15 12-14 ity of ) 00:45: 23:45 [place] disintegrat 00 :00 Medical ing tablet Branch 8 mg ondansetron 2021-07- No [id number] 8mg 8 mg, Univers (ZOFRAN-ODT 2-15 12-14 Oral, ity of ) 00:45: 23:45 ONCE, 1 [place] disintegrat 00 :00 dose, On Medi felipa ing tablet Wed Branch 8 mg 06/13/22 at 1845, Routine benzonatate 2021-07 Yes [id number] 200mg Take 2 Univers 100 mg 2-14 capsules ity of capsule 00:00: by mouth [place] 00 every 8 Medical (eight) Branch hours as needed for Cough. ondansetron 2021-07 Yes [id number] 4mg Take 1 Univers 4 mg 2-14 tablet by ity of disintegrat 00:00: mouth [place] ing tablet 00 every 8 Medica l (eight) Branch hours as needed for Nausea and Vomiting (N/V). nirmatrelvi 2021-07 Yes [id number] 3{tbl} Take 3 Univers r-ritonavir 2-14 tablets by it y of (PAXLOVID, 00:00: mouth in [place] as EUA,) 300 00 the Medical mg (150 mg morning Branch x 2)-100 mg and 3 tablet tablets in the evening. ondansetron 2021-07 Yes [id number] 4mg Take 1 Univers 4 mg 2-14 tablet by ity of disintegrat 00:00: mouth [place] ing tablet 00 every 8 Medica l (eight) Branch hours as needed for Nausea and Vomiting (N/V). nirmatrelvi 2021-07 Yes [id number] 3{tbl} Take 3 Univers r-ritonavir 2-14 tablets by it y of (PAXLOVID, 00:00: mouth in [place] as EUA,) 300 00 the Medical mg (150 mg morning Branch x 2)-100 mg and 3 tablet tablets in the evening. promethazin 2021-07 Yes [id number] 5mL Take 5 mL Univers e-dextromet 2-14 by mouth 4 it y of horphan 00:00: (four) [place] 6.25-15 00 times Medical mg/5 mL daily as Branch syrup needed for Cough. nirmatrelvi 2021-07- No [id number] 3{tbl} Take 3 Univers r-ritonavir 2-14 12-14 tablets by i ty of (PAXLOVID, 00:00: 00:00 [place] EUA,) 300 00 :00 the Medical mg (150 mg morning Branch x 2)-100 mg and 3 tablet tablets in the evening. benzonatate 2021-07 No [id number] 200mg Take 2 Univers 100 mg 2-14 12-14 capsules ity of capsule 00:00: 00:00 by mouth [place] 00 :00 every 8 Medical (eight) Branch hours as needed for Cough. ondansetron 2021-07- No 4mg 4 mg, Slow Univers (ZOFRAN 07-07 IV Push, ity of (PF)) 15:45: 15:35 ONCE, 1 [place] injection 4 00 :00 dose, On Medi felipa mg Sat05/07/22 at 0945, JOSE FENTanyl PF 2021-07 No 50ug 50 mcg, Un spring (SUBLIMAZE 07-07 Slow IV ity o f (PF)) 15:30: 15:32 Push, [place] injection 00 :00 ONCE, 1 Medical 50 mcg dose, On Branch Sat05/07/22 at 0930, STAT acetaminoph 2021-07- No 1000mg 1,000 mg, Univers en ADULT 07-07 IV ity of (OFIRMEV) 15:15: 14:45 [place]fusion, [place] injection 00 :00 at 400 Medical 1,000 mg mL/hr Branch Administer over 15 Minutes, ONCE NOW, 1 dose, On Sat05/07/22 at 0915, Routine
Indicatio n: Perioperat melvin Patient tamsulosin 2021-07 Yes [id number] .4mg Take 1 U nivers 0.4 mg 24 07-07 capsule by ity of hr capsule 00:00: mouth at [place] as 00 bedtime. Medical Branch tamsulosin 2021-07- No [id number] .4mg Take 1 Univers 0.4 mg 24 07-07 12-14 capsule by ity of hr capsule 00:00: 00:00 [place] 00 :00 bedtime. Medical Branch HYDROcodone 2021-07- No [id number] 1{tbl} Take 1 U nivers -acetaminop [...] 1 Medical 10 mg dose, On Branch [facility] 02/19/22 at 1030, JOSE NaCl 0.9% No 1000mL at 999 Uni vers (NS) bolus 02-19 mL/hr, ity of infusion 15:30: 15:58 1,000 mL, [place] as 1,000 mL 00 :00 IV Medical Infusion, Branch ONCE, 1 dose, On [facility] 02/19/22 at 1030, JOSE morpHINE (4 2021- No 4mg 4 mg, Slow Univers mg/mL) 02-19 IV Push, ity of injection 4 14:45: 15:05 ONCE, 1 [place] mg 00 :00 dose, On Medical [facility] 02/19/22 at 0945, STAT ondansetron 2021- No 4mg 4 mg, Slow Univers (ZOFRAN 02-19 IV Push, ity of (PF)) 14:30: 15:05 ONCE, 1 [place] injection 4 00 :00 dose, On Medi felipa mg [facility] 02/19/22 at 0930, JOSE methylPREDN Yes [id number] Take by Univers ISolone 6-01 mouth ity of (MEDROL, 00:00: SEE-INSTRU [place] TE,) 4 mg 00 CTIONS. Medica l tablets follow Branch package directions methylPREDN Yes [id number] Take by [facility] ISolone 11-29 mouth ity of (MEDROL, 00:00: SEE-INSTRU [place] TE,) 4 mg 00 CTIONS. Medica l tablets follow Branch package directions methylPREDN Yes [id number] Take by [facility] ISolone 11-29 mouth ity of (MEDROL, 00:00: SEE-INSTRU [place] TE,) 4 mg 00 CTIONS. Medica l tablets follow Branch package directions methylPREDN 2021- No [id number] Take by [facility] ISolone 11-29 12-14 mouth ity of (MEDROL, 00:00: 00:00 [place]INSTRU [place] TE,) 4 mg 00 :00 CTIONS. Medica l tablets follow Branch package directions amoxicillin 2021- No [id number] 1{tbl} Take 1 Univers -clavulanat 11-29 tablet [...] 16:19: [place] ORAL) 44 Medical Branch naproxen 2022-0 Yes [id number] 500mg Take 1 U nivers (NAPROSYN) 2-02 tablet by ity of 500 mg 00:00: mouth 2 [place] tablet 00 (two) Medical times Branch daily with meals. naproxen 0 Yes [id number] 500mg Take 1 U nivers (NAPROSYN) 2-02 tablet by ity of 500 mg 00:00: mouth 2 [place] tablet 00 (two) Medical times Branch daily with meals. naproxen 2021-0 Yes [id number] 500mg Take 1 U nivers (NAPROSYN) 2-02 tablet by ity of 500 mg 00:00: mouth 2 [place] tablet 00 (two) Medical times Branch daily with meals. naproxen 0 Yes [id number] 500mg Take 1 U nivers (NAPROSYN) 2-02 tablet by ity of 500 mg 00:00: mouth 2 [place] tablet 00 (two) Medical times Branch daily with meals. naproxen 0 Yes [id number] 500mg Take 1 U nivers (NAPROSYN) 2-02 tablet by ity of 500 mg 00:00: mouth 2 [place] tablet 00 (two) Medical times Branch daily with meals. albuterol 2020-07 Yes [id number] 2{puff} Inhale 2 Univers 90 2-22 Puffs [...] Cough. Indication s: cough albuterol 2020-07 Yes [id number] 2{puff} Inhale 2 Univers 90 2-22 Puffs [...] Cough. Indication s: cough albuterol 2020-07 Yes [id number] 2{puff} Inhale 2 Univers 90 2-22 Puffs [...] Cough. Indication s: cough albuterol 2020-07 Yes [id number] 2{puff} Inhale 2 Univers 90 2-22 Puffs [...] Cough. Indication s: cough albuterol 2020-07 Yes [id number] 2{puff} Inhale 2 Univers 90 2-22 Puffs [...] 00:00: MOUTH EVERY DAY Medical IN THE [place] MORNING ON AN EMPTY STOMACH levothyroxi 2020-07 Yes TAKE 1 Univ ers ne 137 mcg 2-16 TABLET BY ity of tablet 00:00: MOUTH EVERY DAY Medical IN THE Branch MORNING [...] 0-23 [facility] 00:[facility]: - [facility] Premarin Premarin 2018-07 No 1{table QD [...] (PREMARIN 00:00: daily. [place] ORAL) 00 [facility] estrogens, 2018-07 Yes Take by Univ ers conjugated 0-23 mouth ity of (PREMARIN 00:00: daily. [place] ORAL) 00 [facility] estrogens, 2018-07 Yes Take by Univ ers conjugated 0-23 mouth ity of (PREMARIN 00:00: daily. [place] ORAL) [facility] estrogens, 2018-07 Yes Take by Univ ers conjugated 0-23 mouth ity of (PREMARIN 00:00: daily. [place] ORAL) 00 [facility] estrogens, 2018-07 Yes Take by Univ ers conjugated 0-23 mouth ity of (PREMARIN 00:00: daily. [place] ORAL) [facility] estrogens, 2018-07 Yes Take by Univ ers conjugated 0-23 mouth ity of (PREMARIN 00:00: daily. [place] ORAL) 00 [facility] estrogens, 2018-07 Yes Take by Univ ers conjugated 0-23 mouth ity of (PREMARIN 00:00: daily. [place] ORAL) 00 [facility] estrogens, 2018-07 Yes Take by Univ ers conjugated 0-23 mouth ity of (PREMARIN 00:00: daily. [place] ORAL) 00 [facility] estrogens, 2018-07 Yes Take by Univ ers conjugated 0-23 mouth ity of (PREMARIN 00:00: daily. [place] ORAL) [facility] Yes Take by Univ ers conjugated 0-23 mouth ity of (PREMARIN 00:00: daily. [place] ORAL) [facility] Estr[facility]iol Estradiol 2018-07 Yes Kaywin 1 tablet Common 0-01 [facility] 00:00: - [facility] citalopram 2017- Yes Univers (CeleXA) 40 9-10 ity of mg tablet 00:00: [place] 00 MD [facility] citalopram 2017- Yes Univers (CeleXA) 40 9-10 ity of mg tablet 00:00: [place] MD [facility] citalopram 2017- Yes Univers (CeleXA) 40 9-10 ity of mg tablet 00:00: [place] 00 [facility] citalopra Yes Univers (CeleXA) 40 9-10 ity of mg tablet 00:00: [facility] Univers (CeleXA) 40 9-10 ity of mg tablet 00:00: [facility] Yes Univers (CeleXA) 40 9-10 ity of mg tablet 00:00: [facility] citalopra Yes Univers (CeleXA) 40 9-10 ity of mg tablet 00:00: [facility] Yes Univers (CeleXA) 40 9-10 ity of mg tablet 00:00: [facility] Yes Univers (CeleXA) 40 9-10 ity of mg tablet 00:00: [facility] Yes Univers (CeleXA) 40 9-10 ity of mg tablet 00:00: [facility] citalopra Yes Univers (CeleXA) 40 9-10 ity of mg tablet 00:00: [facility] citalopra 0 Yes Univers (CeleXA) 40 9-10 ity of mg tablet 00:00: [facility] citalopra Yes Univers (CeleXA) 40 9-10 ity of mg tablet 00:00: MD [facility] citalopra Yes Univers (CeleXA) 40 9-10 ity of mg tablet 00:00: [facility] citalopra Yes Univers (CeleXA) 40 9-10 ity of mg tablet 00:00: MD [facility] levothyroxi Yes Univer s ne 175 mcg [...] 00 MD [facility] zolpidem 2006-0 Yes Univers (AMBIEN) 10 1-01 ity of mg tablet 00:00: [place] 00 MD [facility] zolpidem 2007-0 Yes Univers (AMBIEN) 10 1-01 ity of mg tablet 00:00: [place] 00 [facility] zolpidem 2007-0 Yes Univers (AMBIEN) 10 07-01 ity of mg tablet 00:00: [facility] zolpidem 2006-0 Yes Univers (AMBIEN) 10 07-01 ity of mg tablet 00:00: [facility] zolpide 2007-0 Yes Univers (AMBIEN) 10 07-01 ity of mg tablet 00:00: 00 [facility] zolpidem 2006-0 Yes Univers (AMBIEN) 10 07-01 ity of mg tablet 00:00: 00 [facility] zolpide 2006-0 Yes Univers (AMBIEN) 10 07-01 ity of mg tablet 00:00: 00 [facility] zolpide 2006-0 Yes Univers (AMBIEN) 10 07-01 ity of mg tablet 00:00: [place] 00 [facility] zolpide 2007-0 Yes Univers (AMBIEN) 10 07-01 ity of mg tablet 00:00: 00 [facility] zolpidem 2007-0 Yes Univers (AMBIEN) 10 07-01 ity of mg tablet 00:00: [place] 00 [facility] zolpidem 2006-0 Yes Univers (AMBIEN) 07-01 ity of mg tablet 00:00: 00 [facility] zolpide 2006-0 Yes Univers (AMBIEN) 10 07-01 ity of mg tablet 00:00: [place] 00 [facility] zolpidem 2006-0 Yes Univers (AMBIEN) 10 07-01 ity of mg tablet 00:00: 00 [facility] zolpide 2006-0 Yes Univers (AMBIEN) 10 07-01 ity of mg tablet 00:00: [place] 00 [facility] zolpidem 2006-0 Yes Univers (AMBIEN) 10 07-01 ity of mg tablet 00:00: 00 [facility] acetaminoph acetaminoph Yes 1 [...] tablet Commo n [facility] Levothyroxi Levothyroxi Yes [place] 1 tablet Common ne Sodium ne Sodium [facility]iden on an Sp karla empty - [facility] stomach in [facility] Estradiol Estradiol Yes [place] 1 patch to Common [facility] skin [facility] Promethazin Promethazin No 1{table Promethazi e HCl 25 mg e HCl 25 mg t_as_ne ne HCl 25 eded} mg Estradiol Estradiol No 1{patch Estradiol 0.1 MG/24HR 0.1 MG/24HR _to_ski 0.1 n} MG/24HR Celexa 40 Celexa 40 No 1{table QD Celexa 40 MG MG t} MG [place] No 1{table QID [place] 7.5-325 MG 7.5-325 MG t_as_ne 7.5-325 MG [...] Sodium 150 MCG 150 MCG 150 MCG [place] No 1{table QID [place] 7.5-325 MG 7.5-325 MG t_as_ne 7.5-325 MG eded} Promethazin Promethazin No 1{table Promethazi e HCl 25 mg e HCl 25 mg t_as_ne ne HCl 25 eded} mg Estradiol Estradiol No 1{patch Estradiol 0.1 MG/24HR 0.1 MG/24HR _to_ski 0.1 n} MG/24HR Premarin Premarin No 1{table QD Premarin 1.25 MG 1.25 MG t} 1.25 MG [place] No 1{table QID [place] 7.5-325 MG 7.5-325 MG t_as_ne 7.5-325 MG [...] 1.25 MG 1.25 MG t} 1.25 MG [place] No 1{table QID [place] 7.5-325 MG 7.5-325 MG t_as_ne 7.5-325 MG [...] Influenza, 2011-03-30 Completed University of Unspecified 00:00:00 [place] MD [facility] Tdap 2011-03-30 Completed University of 00:00:00 [place] MD [facility] Influenza, 2011-03-30 Completed University of Unspecified 00:00:00 [place] MD [facility] Tdap 2011-03-30 Completed University of 00:00:00 [place] MD [facility] Influenza, 2011-03-30 Completed University of Unspecified 00:00:00 [place] MD [facility] st[facility] Tdap 2011-03-30 Completed University of 00:00:00 [place] MD [facility] Influenza, 2011-03-30 Completed University of Unspecified 00:00:00 [place] MD [facility] Tdap 2011-03-30 Completed University of 00:00:00 [place] MD [facility] Influenza, 2011-03-30 Completed University of Unspecified 00:00:00 [place] [facility] 2011-03-30 Completed University of 00:00:00 [place] [facility] Influenza, 2011-03-30 Completed University of Unspecified 00:00:00 [place] [facility] T[facility] 2011-03-30 Completed University of 00:00:00 [place] [facility] Influenza, 2011-03-30 Completed University of Unspecified 00:00:00 [place] [facility] 2011-03-30 Completed University of 00:00:00 [place] [facility] Influenza, 2011-03-30 Completed University of Unspecified 00:00:00 [place] [facility] 2011-03-30 Completed University of 00:00:00 [place] [facility] Influenza, 2011-03-30 Completed University of Unspecified 00:00:00 [place] [facility] T[facility] 2011-03-30 Completed University of 00:00:00 [place] [facility] Influenza, 2011-03-30 Completed University of Unspecified 00:00:00 [place] [facility]so [facility] Tdap 2011-03-30 Completed University of 00:00:00 [place] [facility] Influenza, 2011-03-30 Completed University of Unspecified 00:00:00 [place] [facility] T[facility] 2011-03-30 Completed University of 00:00:00 [place] [facility] Influenza, 2011-03-30 Completed University of Unspecified 00:00:00 [place] [facility] T[facility] 2011-03-30 Completed University of 00:00:00 [place] [facility] Influenza, 2011-03-30 Completed University of Unspecified 00:00:00 [place] MD [facility] Tdap 2011-03-30 Completed University of 00:00:00 [place] [facility] Influenza, 2011-03-30 Completed University of Unspecified 00:00:00 [place] [facility] T[facility] 2011-03-30 Completed University of 00:00:00 [place] [facility] Influenza, 2011-03-30 Completed University of Unspecified 00:00:00 [place] [facility] Tdap 2011-03-30 Completed University of 00:00:00 [place] MD [facility] Influenza (IM) 2009-04-05 Completed University of Preservative Free 00:00:00 [facility] Influenza (IM) 2009-04-05 Completed University of Preservative Free 00:00:00 [facility] Influenza (IM) 2009-04-05 Completed University of Preservative Free 00:00:00 [facility] Influenza (IM) 2009-04-05 Completed University of Preservative Free 00:00:00 [facility] Influenza (IM) 2009-04-05 Completed University of Preservative Free 00:00:00 [facility] Influenza (IM) 2009-04-05 Completed University of Preservative Free 00:00:00 [facility] Influenza (IM) 2009-04-05 Completed University of Preservative Free 00:00:00 [facility] Influenza (IM) 2009-04-05 Completed University of Preservative Free 00:00:00 [facility] Influenza (IM) 2009-04-05 Completed University of Preservative Free 00:00:00 [facility] Influenza (IM) 2009-04-05 Completed University of Preservative Free 00:00:00 [facility] Influenza (IM) 2009-04-05 Completed University of Preservative Free 00:00:00 [facility] Influenza (IM) 2009-04-05 Completed University of Preservative Free 00:00:00 [facility] Influenza (IM) 2009-04-05 Completed University of Preservative Free 00:00:00 [facility] Influenza (IM) 2009-04-05 Completed University of Preservative Free 00:00:00 [facility] Influenza (IM) 2009-04-05 Completed University of Preservative Free 00:00:00 [facility] Vital Signs Vital Name Observation Time Observation Value Comments Source Systolic blood 2022-06-13 23:28:00 132 mm[Hg] Univer sity of pressure [facility] [place] [facility] Diastolic blood 2022-06-13 23:28:00 83 mm[Hg] Unive rsity of pressure [facility] [place] [facility] Heart rate 2022-06-13 23:28:00 107 /min [facility] [place] [facility] Body temperature 2022-06-13 23:28:00 37.17 Ericka [facility] [place] [facility] Respiratory rate 2022-06-13 23:28:00 16 /min [facility] [place] [facility] Body height 2022-06-13 23:28:00 162.6 cm [facility] Body weight 2022-06-13 23:28:00 102.15 kg [facility] BMI 2022-06-13 23:28:00 38.66 kg/m2 [facility] Oxygen saturation in 2022-06-13 23:28:00 96 /min [facility] Arterial blood by [facility] Pulse oximetry Branch Systolic blood 2022-05-07 14:46:22 138 mm[Hg] [facility] Diastolic blood 2022-05-07 14:46:22 88 mm[Hg] [facility] Heart rate 2022-05-07 14:46:22 89 /min [facility] Respiratory rate 2022-05-07 14:46:22 20 /min [facility] Oxygen saturation in 2022-05-07 14:46:22 98 /min [facility] Arterial blood by [facility] Pulse oximetry Branch Body temperature 2022-05-07 14:07:33 37 Ericka [facility] Body height 2022-05-07 13:56:00 162.6 cm [facility] Body weight 2022-05-07 13:56:00 108.863 kg [facility] BMI 2022-05-07 13:56:00 41.20 kg/m2 [facility] Systolic blood 2022-02-19 14:13:00 156 mm[Hg] [facility] Diastolic blood 2022-02-19 14:13:00 94 mm[Hg] [facility] Heart rate 2022-02-19 14:13:00 111 /min [facility] Body temperature 2022-02-19 14:13:00 37.11 Ericka [facility] Respiratory rate 2022-02-19 14:13:00 22 /min [facility] Body height 2022-02-19 14:13:00 162.6 cm [facility] Body weight 2022-02-19 14:13:00 104.327 kg [facility] BMI 2022-02-19 14:13:00 39.48 kg/m2 [facility] Oxygen saturation in 2022-02-19 14:13:00 99 /min [facility] Arterial blood by [facility] Pulse oximetry Branch Systolic blood 2021-11-29 22:40:00 116 mm[Hg] [facility] [place] Diastolic blood 2021-11-29 22:40:00 85 mm[Hg] [facility]ive [facility]ity of pressure [facility] Heart rate 2021-11-29 22:40:00 87 /min [facility] Body temperature 2021-11-29 22:40:00 37.28 Ericka [facility] [place] Respiratory rate 2021-11-29 22:40:00 16 /min [facility] Body height 2021-11-29 22:40:00 162.6 cm [facility] Body weight 2021-11-29 22:40:00 103.874 kg [facility] BMI 2021-11-29 22:40:00 39.31 kg/m2 [facility] Oxygen saturation in 2021-11-29 22:40:00 98 /min [facility] Arterial blood by [facility] Pulse oximetry Branch Height 2021-04-23 00:58:00 [...] 15:16:33 16 /min [facility] Oxygen saturation in 2021-10-26 15:16:33 98 /min [facility] Arterial blood by Jeffrey muñoz Pulse oximetry [facility] Body Temperature 2021-04-23 00:58:00 97.8 [degF] [facility] ([facility]F/[facility]VID/[facility]) Pulse Rate 2021-04-23 00:58:00 116 /min [facility] ([facility]) Respiratory Rate 2021-04-23 00:58:00 18 /min [facility] ([facility]) O2% BldC Oximetry 2021-04-23 00:58:00 99 % [facility] ([facility]) BP Systolic 2021-04-23 00:58:00 111 mm[Hg] [facility] ([facility]) BP Diastolic 2021-04-23 00:58:00 77 mm[Hg] [facility] ([facility]) Height 2021-04-23 00:58:00 64 [in_i] [facility] ([facility]) Weight 2021-04-23 00:58:00 105.1 kg [facility] ([facility]) BMI (Body Mass 2021-04-23 00:58:00 40 kg/m2 [facility] ([facility]F/[facility]) Body Temperature 2021-03-24 10:53:00 98.6 [degF] [facility] ([facility]) Pulse Rate 2021-03-24 10:53:00 87 /min [facility] ([facility]) Respiratory Rate 2021-03-24 10:53:00 18 /min [facility] ([facility]) O2% BldC Oximetry 2021-03-24 10:53:00 97 % [facility] ([facility]) BP Systolic 2021-03-24 10:53:00 120 mm[Hg] [facility] ([facility]) BP Diastolic 2021-03-24 10:53:00 86 mm[Hg] [facility] ([facility]) Height 2021-03-24 10:53:00 64 [in_i] [facility] ([facility]) Weight 2021-03-24 10:53:00 105 kg [facility] ([facility]F/[facility]/SA) BMI (Body Mass 2021-03-24 10:53:00 40 kg/m2 [facility] Index) [facility] (LUF/[facility]/SA) Body Temperature 2021-03-10 10:55:00 98.4 [degF] [facility] ([facility]) Pulse Rate 2021-03-10 10:55:00 85 /min [facility] ([facility]) Respiratory Rate 2021-03-10 10:55:00 20 /min [facility] ([facility]) O2% BldC Oximetry 2021-03-10 10:55:00 100 % [facility] ([facility]) BP Systolic 2021-03-10 10:55:00 140 mm[Hg] [facility] ([facility]) BP Diastolic 2021-03-10 10:55:00 98 mm[Hg] [facility] (F/[facility]ID/[facility]) Height 2021-03-10 10:55:00 64 [in_i] [facility] ([facility]F/[facility]) Weight 2021-03-10 10:55:00 105.2 kg [facility] (F/DAVID/SA) BMI (Body Mass 2021-03-10 10:55:00 40 kg/m2 [facility] (LUF/DAVID/SA) Pulse Rate 2021-02-23 12:32:00 67 /min [facility] (F/DA[facility]ID/[facility]) O2% BldC Oximetry 2021-02-23 12:32:00 98 % [facility] (F/[facility]) BP Systolic 2021-02-23 12:32:00 112 mm[Hg] [facility] ([facility]) BP Diastolic 2021-02-23 12:32:00 70 mm[Hg] [facility] ([facility]) Heart Rate 2021-02-23 11:16:00 64 /min [facility] (F/[facility]) Respiratory Rate 2021-02-23 11:16:00 14 /min [facility] (F/[facility]) Body Temperature 2021-02-23 08:24:00 98.1 [degF] [facility] (F/[facility]) Height 2021-02-23 08:24:00 64 [in_i] [facility] (F/[facility]) Weight 2021-02-23 08:24:00 110 kg [facility] (F/DAVID/SA) BMI (Body Mass 2021-02-23 08:24:00 41.9 kg/m2 [facility] (LUF/[facility]) Heart Rate 2021-01-10 01:46:00 93 /min [facility] ([facility]) Pulse Rate 2021-01-10 01:46:00 95 /min [facility] ([facility]) Respiratory Rate 2021-01-10 01:46:00 16 /min [facility] ([facility]) O2% BldC Oximetry 2021-01-10 01:46:00 97 % [facility] ([facility]) BP Systolic 2021-01-10 01:46:00 103 mm[Hg] [facility] ([facility]) BP Diastolic 2021-01-10 01:46:00 71 mm[Hg] [facility] ([facility]) Weight 2021-01-10 00:53:00 102 kg [facility] (F/[facility]) Body Temperature 2021-01-10 00:47:00 98.6 [degF] [facility] ([facility]) Pulse Rate 2020-12-12 14:20:00 87 /min [facility] ([facility]) O2% BldC Oximetry 2020-12-12 14:20:00 98 % [facility] ([facility]) BP Systolic 2020-12-12 14:20:00 128 mm[Hg] [facility] ([facility]) BP Diastolic 2020-12-12 14:20:00 86 mm[Hg] [facility] ([facility]) Body Temperature 2020-12-12 12:39:00 98.9 [degF] [facility] ([facility]) Respiratory Rate 2020-12-12 12:39:00 20 /min [facility] ([facility]) Weight 2020-12-12 12:39:00 102 kg [facility] ([facility]) Body Temperature 2020-12-08 10:27:00 98.6 [degF] [facility] ([facility]) Pulse Rate 2020-12-08 10:27:00 79 /min [facility] ([facility]) Respiratory Rate 2020-12-08 10:27:00 16 /min [facility] ([facility]) O2% BldC Oximetry 2020-12-08 10:27:00 99 % [facility] ([facility]) BP Systolic 2020-12-08 10:27:00 111 mm[Hg] [facility] ([facility]) BP Diastolic 2020-12-08 10:27:00 57 mm[Hg] [facility] ([facility]) Weight 2020-12-08 10:27:00 103 kg [facility] ([facility]) Body Temperature 2020-11-25 00:27:00 97.9 [degF] [facility] ([facility]) Pulse Rate 2020-11-25 00:27:00 82 /min [facility] ([facility]) Respiratory Rate 2020-11-25 00:27:00 17 /min [facility] ([facility]) O2% BldC Oximetry 2020-11-25 00:27:00 98 % [facility] ([facility]) BP Systolic 2020-11-25 00:27:00 109 mm[Hg] [facility] ([facility]) BP Diastolic 2020-11-25 00:27:00 62 mm[Hg] [facility] ([facility]) Heart Rate 2020-11-21 09:30:00 75 /min [facility] ([facility]) Respiratory Rate 2020-11-21 09:30:00 14 /min [facility] ([facility]) BP Systolic 2020-11-21 09:30:00 120 mm[Hg] [facility] ([facility]) BP Diastolic 2020-11-21 09:30:00 76 mm[Hg] [facility] ([facility]) Body Temperature 2020-11-21 07:15:00 98.1 [degF] [facility] ([facility]) Pulse Rate 2020-11-21 07:15:00 103 /min [facility] ([facility]) O2% BldC Oximetry 2020-11-21 07:15:00 100 % [facility] ([facility]) Height 2020-11-21 07:15:00 64 [in_i] [facility] ([facility]) Weight 2020-11-21 07:15:00 103.1 kg [facility] ([facility]) BMI (Body Mass 2020-11-21 07:15:00 39.2 kg/m2 [facility] ([facility]) Heart Rate 2020-11-14 13:30:00 69 /min [facility] ([facility]) Pulse Rate 2020-11-14 13:30:00 70 /min [facility] ([facility]) Respiratory Rate 2020-11-14 13:30:00 10 /min [facility] (F/[facility]) O2% BldC Oximetry 2020-11-14 13:30:00 96 % [facility] ([facility]) BP Systolic 2020-11-14 13:30:00 103 mm[Hg] [facility] ([facility]) BP Diastolic 2020-11-14 13:30:00 77 mm[Hg] [facility] ([facility]) Body Temperature 2020-11-14 09:47:00 97.4 [degF] [facility] (F/[facility]) Weight 2020-11-14 09:47:00 103 kg [facility] (F/[facility]) Body Temperature 2020-11-08 08:32:00 98.1 [degF] [facility] ([facility]) Pulse Rate 2020-11-08 08:32:00 82 /min [facility] ([facility]) Respiratory Rate 2020-11-08 08:32:00 20 /min [facility] (F/[facility]) O2% BldC Oximetry 2020-11-08 08:32:00 100 % [facility] ([facility]) BP Systolic 2020-11-08 08:32:00 129 mm[Hg] [facility] ([facility]) BP Diastolic 2020-11-08 08:32:00 72 mm[Hg] [facility] ([facility]) Height 2020-11-08 08:32:00 64 [in_i] [facility] (F/[facility]) Weight 2020-11-08 08:32:00 103.1 kg [facility] (F/[facility]/SA) BMI (Body Mass 2020-11-08 08:32:00 39.2 kg/m2 [facility] (F/DAVID/SA) Body Temperature 2020-11-01 00:58:00 98.7 [degF] [facility] (F/[facility]) Pulse Rate 2020-11-01 00:58:00 104 /min [facility] (F/[facility]) Respiratory Rate 2020-11-01 00:58:00 20 /min [facility] ([facility]) O2% BldC Oximetry 2020-11-01 00:58:00 99 % [facility] (F/[facility]) BP Systolic 2020-11-01 00:58:00 133 mm[Hg] [facility] ([facility]) BP Diastolic 2020-11-01 00:58:00 101 mm[Hg] [facility] (F/[facility]) Height 2020-11-01 00:53:00 65 [in_i] [facility] (F/[facility]) Weight 2020-11-01 00:53:00 103 kg [facility] (F/DAVID/SA) BMI (Body Mass 2020-11-01 00:53:00 37.8 kg/m2 [facility]) [facility] (LUF/[facility]) Body Temperature 2020-10-04 23:51:00 98 [degF] [facility] ([facility]) Pulse Rate 2020-10-04 23:51:00 96 /min [facility] ([facility]) Respiratory Rate 2020-10-04 23:51:00 20 /min [facility] ([facility]) O2% BldC Oximetry 2020-10-04 23:51:00 98 % [facility] ([facility]) BP Systolic 2020-10-04 23:51:00 125 mm[Hg] [facility] ([facility]) BP Diastolic 2020-10-04 23:51:00 73 mm[Hg] [facility] ([facility]) Height 2020-10-04 23:47:00 65 [in_i] [facility] ([facility]) Weight 2020-10-04 23:47:00 102.6 kg [facility] ([facility]) BMI (Body Mass 2020-10-04 23:47:00 37.6 kg/m2 [facility] ([facility]) Body Temperature 2020-09-18 01:44:00 98.3 [degF] [facility] (F/[facility]) Pulse Rate 2020-09-18 01:44:00 116 /min [facility] ([facility]) Respiratory Rate 2020-09-18 01:44:00 20 /min [facility] (F/[facility]) O2% BldC Oximetry 2020-09-18 01:44:00 99 % [facility] ([facility]) BP Systolic 2020-09-18 01:44:00 127 mm[Hg] [facility] ([facility]) BP Diastolic 2020-09-18 01:44:00 83 mm[Hg] [facility] (F/[facility]) Height 2020-09-18 01:40:00 64 [in_i] [facility] ([facility]) Weight 2020-09-18 01:40:00 102.8 kg [facility] ([facility]) BMI (Body Mass 2020-09-18 01:40:00 39.1 kg/m2 [facility]) [facility] ([facility]F/[facility]) Pulse Rate 2020-09-12 02:16:00 88 /min [facility] ([facility]) O2% BldC Oximetry 2020-09-12 02:16:00 98 % [facility] ([facility]) BP Systolic 2020-09-12 02:16:00 113 mm[Hg] [facility] ([facility]) BP Diastolic 2020-09-12 02:16:00 64 mm[Hg] [facility] ([facility]) Body Temperature 2020-09-12 00:56:00 97.9 [degF] [facility] ([facility]) Respiratory Rate 2020-09-12 00:56:00 18 /min [facility] ([facility]) Height 2020-09-12 00:50:00 65 [in_i] [facility] (F/[facility]) Weight 2020-09-12 00:50:00 104.5 kg [facility] (F/[facility]) BMI (Body Mass 2020-09-12 00:50:00 38.3 kg/m2 [facility]) [facility] ([facility]) Pulse Rate 2020-08-22 03:16:00 100 /min [facility] (F/[facility]) O2% BldC Oximetry 2020-08-22 03:16:00 95 % [facility] ([facility]) BP Systolic 2020-08-22 03:16:00 129 mm[Hg] [facility] ([facility]) BP Diastolic 2020-08-22 03:16:00 88 mm[Hg] [facility] (F/[facility]) Body Temperature 2020-08-22 01:35:00 98.4 [degF] [facility] ([facility]) Respiratory Rate 2020-08-22 01:35:00 20 /min [facility] ([facility]) Height 2020-08-22 01:35:00 64 [in_i] [facility] ([facility]) Weight 2020-08-22 01:35:00 102 kg [facility] ([facility]) BMI (Body Mass 2020-08-22 01:35:00 38.8 kg/m2 [facility] (LUF/[facility]) Pulse Rate 2020-08-06 03:31:00 83 /min [facility] ([facility]) O2% BldC Oximetry 2020-08-06 03:31:00 96 % [facility] ([facility]) BP Systolic 2020-08-06 03:31:00 127 mm[Hg] [facility] ([facility]) BP Diastolic 2020-08-06 03:31:00 82 mm[Hg] [facility] ([facility]) Body Temperature 2020-08-06 01:45:00 98 [degF] [facility] ([facility]) Respiratory Rate 2020-08-06 01:45:00 20 /min [facility] ([facility]) Height 2020-08-06 01:39:00 66 [in_i] [facility] ([facility]) Weight 2020-08-06 01:39:00 104.2 kg [facility] ([facility]) BMI (Body Mass 2020-08-06 01:39:00 37.3 kg/m2 [facility] Index) [facility] (LUF/[facility]) Pulse Rate 2020-07-19 11:16:00 67 /min [facility] ([facility]) O2% BldC Oximetry 2020-07-19 11:16:00 94 % [facility] ([facility]) BP Systolic 2020-07-19 11:16:00 101 mm[Hg] [facility] ([facility]) BP Diastolic 2020-07-19 11:16:00 63 mm[Hg] [facility] ([facility]) Body Temperature 2020-07-19 07:50:00 98 [degF] [facility] (F/[facility]) Respiratory Rate 2020-07-19 07:50:00 18 /min [facility] ([facility]) Weight 2020-07-19 07:50:00 100 kg [facility] ([facility]) Heart Rate 2020-07-05 04:46:00 80 /min [facility] (F/[facility]) Respiratory Rate 2020-07-05 04:46:00 15 /min [facility] (F/[facility]) BP Systolic 2020-07-05 04:46:00 134 mm[Hg] [facility] ([facility]) BP Diastolic 2020-07-05 04:46:00 60 mm[Hg] [facility] ([facility]) Body Temperature 2020-07-05 02:57:00 98 [degF] [facility] ([facility]) Pulse Rate 2020-07-05 02:57:00 82 /min [facility] ([facility]) O2% BldC Oximetry 2020-07-05 02:57:00 99 % [facility] ([facility]) Height 2020-07-05 02:50:00 65 [in_i] [facility] (F/[facility]) Weight 2020-07-05 02:50:00 102.1 kg [facility] (F/[facility]) BMI (Body Mass 2020-07-05 02:50:00 37.5 kg/m2 [facility] (LU[facility]) Body Temperature 2020-06-07 13:38:00 98.5 [degF] [facility] (F/[facility]) Pulse Rate 2020-06-07 13:38:00 95 /min [facility] ([facility]) Respiratory Rate 2020-06-07 13:38:00 20 /min [facility] ([facility]) O2% BldC Oximetry 2020-06-07 13:38:00 97 % [facility] ([facility]) BP Systolic 2020-06-07 13:38:00 129 mm[Hg] [facility] ([facility]) BP Diastolic 2020-06-07 13:38:00 73 mm[Hg] [facility] ([facility]) Height 2020-06-07 13:38:00 64 [in_i] [facility] ([facility]) Weight 2020-06-07 13:38:00 99.79 kg [facility] ([facility]) BMI (Body Mass 2020-06-07 13:38:00 38 kg/m2 [facility]) [facility] ([facility]) Body Temperature 2020-05-31 09:45:00 99.6 [degF] [facility] ([facility]) Pulse Rate 2020-05-31 09:45:00 86 /min [facility] ([facility]) Respiratory Rate 2020-05-31 09:45:00 18 /min [facility] ([facility]) O2% BldC Oximetry 2020-05-31 09:45:00 98 % [facility] ([facility]) BP Systolic 2020-05-31 09:45:00 118 mm[Hg] [facility] ([facility]) BP Diastolic 2020-05-31 09:45:00 78 mm[Hg] [facility] ([facility]) Height 2020-05-31 09:45:00 64 [in_i] [facility] ([facility]) Weight 2020-05-31 09:45:00 99.79 kg [facility] (LUF/[facility]) BMI (Body Mass 2020-05-31 09:45:00 38 kg/m2 [facility]) [facility] (LUF/[facility]) Heart Rate 2020-04-25 20:01:00 69 /min [facility] ([facility]) Pulse Rate 2020-04-25 20:01:00 71 /min [facility] ([facility]) Respiratory Rate 2020-04-25 20:01:00 18 /min [facility] ([facility]) O2% BldC Oximetry 2020-04-25 20:01:00 100 % [facility] ([facility]) BP Systolic 2020-04-25 20:01:00 126 mm[Hg] [facility] ([facility]) BP Diastolic 2020-04-25 20:01:00 86 mm[Hg] [facility] ([facility]) Body Temperature 2020-04-25 16:50:00 98.4 [degF] [facility] (F/[facility]) Height 2020-04-25 16:50:00 64 [in_i] [facility] (F/[facility]) Weight 2020-04-25 16:50:00 220 [lb_av] [facility] (F/[facility]) BMI (Body Mass 2020-04-25 16:50:00 38 kg/m2 [facility] (LUF/[facility]ID/[facility]) Heart Rate 2020-03-20 18:18:00 112 /min [facility] ([facility]) Pulse Rate 2020-03-20 18:16:00 93 /min [facility] (F/[facility]) O2% BldC Oximetry 2020-03-20 18:16:00 92 % [facility] ([facility]) BP Systolic 2020-03-20 18:16:00 127 mm[Hg] [facility] ([facility]) BP Diastolic 2020-03-20 18:16:00 85 mm[Hg] [facility] ([facility]) Body Temperature 2020-03-20 17:17:00 99.2 [degF] [facility] ([facility]) Respiratory Rate 2020-03-20 17:17:00 19 /min [facility] ([facility]) Height 2020-03-20 17:17:00 64 [in_i] [facility] ([facility]) Weight 2020-03-20 17:17:00 106.9 kg [facility] ([facility]) BMI (Body Mass 2020-03-20 17:17:00 40.7 kg/m2 [facility] (LUF/[facility]) Respiratory Rate 2020-03-17 10:33:00 16 /min [facility] ([facility]) Body Temperature 2020-03-17 07:54:00 97.9 [degF] [facility] ([facility]) Pulse Rate 2020-03-17 07:54:00 83 /min [facility] ([facility]) O2% BldC Oximetry 2020-03-17 07:54:00 96 % [facility] ([facility]) BP Systolic 2020-03-17 07:54:00 107 mm[Hg] [facility] ([facility]) BP Diastolic 2020-03-17 07:54:00 75 mm[Hg] [facility] ([facility]) Weight 2020-03-17 00:09:00 105.6 kg [facility] ([facility]) Heart Rate 2020-03-13 15:46:00 81 /min [facility] ([facility]) Height 2020-03-13 15:31:00 64 [in_i] [facility] ([facility]) Body Temperature 2020-03-02 15:20:00 98.6 [degF] [facility] ([facility]) Pulse Rate 2020-03-02 15:20:00 86 /min [facility] ([facility]) Respiratory Rate 2020-03-02 15:20:00 18 /min [facility] ([facility]) O2% BldC Oximetry 2020-03-02 15:20:00 99 % [facility] ([facility]) BP Systolic 2020-03-02 15:20:00 131 mm[Hg] [facility] ([facility]) BP Diastolic 2020-03-02 15:20:00 85 mm[Hg] [facility] ([facility]) Height 2020-03-01 10:54:00 64 [in_i] [facility] ([facility]ID/[place]) Weight 2020-03-01 10:54:00 102 kg [facility] (LUF/[facility]VID/[place]) BMI (Body Mass 2020-03-01 10:54:00 38.8 kg/m2 [facility] (LUF/DAVID/[place]) Respiratory Rate 2020-02-27 07:47:00 16 /min [facility] ([facility]F/[facility]ID/[place]) Body Temperature 2020-02-27 07:32:00 98.2 [degF] [facility] ([facility]F/[facility]ID/[place]) Pulse Rate 2020-02-27 07:32:00 94 /min [facility] (LUF/DAVID/[place]) O2% BldC Oximetry 2020-02-27 07:32:00 95 % [facility] (LUF/DAVID/SA) BP Systolic 2020-02-27 07:32:00 111 mm[Hg] [facility] (LUF/DAVID/SA) BP Diastolic 2020-02-27 07:32:00 56 mm[Hg] [facility] (LUF/DAVID/SA) Weight 2020-02-26 02:09:00 99.6 kg [facility] (LUF/DAVID/SA) Height 2020-02-25 10:03:00 64 [in_i] [facility] (LUF/DAVID/SA) Body Temperature 2020-02-25 00:52:00 97.9 [degF] [facility] (LUF/DAVID/SA) Pulse Rate 2020-02-25 00:52:00 118 /min [facility] (LUF/DAVID/SA) Respiratory Rate 2020-02-25 00:52:00 18 /min [facility] (LUF/DAVID/SA) O2% BldC Oximetry 2020-02-25 00:52:00 97 % [facility] (LUF/DAVID/SA) BP Systolic 2020-02-25 00:52:00 133 mm[Hg] [facility] (LUF/DAVID/SA) BP Diastolic 2020-02-25 00:52:00 67 mm[Hg] [facility] (LUF/DAVID/SA) Height 2020-02-25 00:47:00 64 [in_i] [facility] (LUF/DAVID/SA) Weight 2020-02-25 00:47:00 103.4 kg [facility] (LUF/DAVID/SA) BMI (Body Mass 2020-02-25 00:47:00 39.3 kg/m2 [facility]) [facility] (LUF/DAVID/SA) Body Temperature 2020-01-25 11:32:00 98.4 [degF] [facility] (LUF/DAVID/SA) Pulse Rate 2020-01-25 11:32:00 81 /min [facility] (LUF/DAVID/SA) Respiratory Rate 2020-01-25 11:32:00 14 /min [facility] (LUF/DAVID/SA) O2% BldC Oximetry 2020-01-25 11:32:00 98 % [facility] (LUF/DAVID/SA) BP Systolic 2020-01-25 11:32:00 139 mm[Hg] [facility] (LUF/DAVDI/SA) BP Diastolic 2020-01-25 11:32:00 89 mm[Hg] [facility] (LUF/DAVID/SA) Height 2020-01-25 11:32:00 64 [in_i] [facility] (LUF/DAVID/SA) Weight 2020-01-25 11:32:00 100.5 kg [facility] (LUF/DAVID/SA) BMI (Body Mass 2020-01-25 11:32:00 38.2 kg/m2 [facility]) [facility] (LUF/DAVID/SA) Heart Rate 2019-11-24 04:16:00 84 /min [facility] (LUF/DAVID/SA) Pulse Rate 2019-11-24 04:16:00 90 /min [facility] (LUF/DAVID/SA) Respiratory Rate 2019-11-24 04:16:00 26 /min [facility] (LUF/DAVID/SA) O2% BldC Oximetry 2019-11-24 04:16:00 98 % [facility] (LUF/DAVID/SA) BP Systolic 2019-11-24 04:16:00 106 mm[Hg] [facility] (LUF/DAVID/SA) BP Diastolic 2019-11-24 04:16:00 69 mm[Hg] [facility] (LUF/DAVID/SA) Body Temperature 2019-11-24 00:54:00 98.4 [degF] [facility] (LUF/DAVID/SA) Height 2019-11-24 00:49:00 65 [in_i] [facility] (LUF/DAVID/SA) Weight 2019-11-24 00:49:00 103 kg [facility] (LUF/DAVID/SA) BMI (Body Mass 2019-11-24 00:49:00 37.8 kg/m2 [facility] (LUF/DAVID/SA) Heart Rate 2019-10-07 22:54:00 83 /min [facility] (LUF/DAVID/SA) Respiratory Rate 2019-10-07 22:54:00 14 /min [facility] (LUF/DAVID/SA) Pulse Rate 2019-10-07 22:31:00 89 /min [facility] (LUF/DAVID/SA) O2% BldC Oximetry 2019-10-07 22:31:00 97 % [facility] (LUF/DAVID/SA) BP Systolic 2019-10-07 21:16:00 127 mm[Hg] [facility] (LUF/DAVID/SA) BP Diastolic 2019-10-07 21:16:00 85 mm[Hg] [facility] (LUF/DAVID/SA) Height 2019-10-07 20:41:00 64 [in_i] [facility] (LUF/DAVID/SA) Weight 2019-10-07 20:41:00 100.2 kg [facility] (LUF/DAVID/SA) BMI (Body Mass 2019-10-07 20:41:00 38.1 kg/m2 [facility] Index) [facility] (LUF/DAVID/SA) Pulse Rate 2019-09-20 04:16:00 96 /min [facility] (LUF/DAVID/SA) Respiratory Rate 2019-09-20 04:16:00 9 /min [facility] (LUF/DAVID/SA) O2% BldC Oximetry 2019-09-20 04:16:00 96 % [facility] (LUF/DAVID/SA) BP Systolic 2019-09-20 04:16:00 97 mm[Hg] [facility] (LUF/DAVID/SA) BP Diastolic 2019-09-20 04:16:00 76 mm[Hg] [facility] (LUF/DAVID/SA) Body Temperature 2019-09-20 00:44:00 98 [degF] [facility] (LUF/DAVID/SA) Height 2019-09-20 00:39:00 65 [in_i] [facility] (LUF/DAVID/SA) Weight 2019-09-20 00:39:00 101.9 kg [facility] (LUF/DAVID/SA) BMI (Body Mass 2019-09-20 00:39:00 37.4 kg/m2 [facility] Index) [facility] (LUF/DAVID/SA) Pulse Rate 2019-08-17 04:31:00 81 /min [facility] (LUF/DAVID/SA) Respiratory Rate 2019-08-17 04:31:00 13 /min [facility] (LUF/DAVID/SA) O2% BldC Oximetry 2019-08-17 04:31:00 97 % [facility] (LUF/DAVID/SA) BP Systolic 2019-08-17 04:31:00 136 mm[Hg] [facility] (LUF/DAVID/SA) BP Diastolic 2019-08-17 04:31:00 75 mm[Hg] [facility] (LUF/DAVID/SA) Body Temperature 2019-08-17 02:23:00 97.6 [degF] [facility] (LUF/DAVID/SA) Height 2019-08-17 02:19:00 64 [in_i] [facility] (LUF/DAVID/SA) Weight 2019-08-17 02:19:00 100.6 kg [facility] (LUF/DAVID/SA) BMI (Body Mass 2019-08-17 02:19:00 38.3 kg/m2 [facility]) [facility] (LUF/DAVID/SA) Pulse Rate 2018-12-07 02:33:00 79 /min [facility] (LUF/DAVID/SA) Respiratory Rate 2018-12-07 02:33:00 15 /min [facility] (LUF/DAVID/SA) O2% BldC Oximetry 2018-12-07 02:33:00 96 % [facility] (LUF/DAVID/SA) BP Systolic 2018-12-07 02:33:00 120 mm[Hg] [facility] (LUF/DAVID/SA) BP Diastolic 2018-12-07 02:33:00 76 mm[Hg] [facility] (LUF/DAVID/SA) Body Temperature 2018-12-07 01:10:00 98.2 F [facility] (F/DAVID/SA) Height 2018-12-07 01:10:00 64 in [facility] (LUF/DAVID/SA) Weight Measured 2018-12-07 01:10:00 218.25 lbs [facility] (LUF/DAVID/SA) BMI (Body Mass 2018-12-07 01:10:00 37.7 kg/m2 [facility]) [facility] (LUF/DAVID/SA) Pulse Rate 2018-09-30 19:40:00 70 /min [facility] (LUF/DAVID/SA) Respiratory Rate 2018-09-30 19:40:00 21 /min [facility] (F/DAVID/SA) O2% BldC Oximetry 2018-09-30 19:40:00 100 % [facility] (LUF/DAVID/SA) BP Systolic 2018-09-30 19:40:00 124 mm[Hg] [facility] (F/DAVID/SA) BP Diastolic 2018-09-30 19:40:00 88 mm[Hg] [facility] (LUF/DAVID/SA) Body Temperature 2018-09-30 19:23:00 99.3 F [facility] (LUF/DAVID/SA) Height 2018-09-30 19:23:00 66 in [facility] (LUF/DAVID/SA) Weight Measured 2018-09-30 19:23:00 212.52 lbs [facility] (LUF/DAVID/SA) BMI (Body Mass 2018-09-30 19:23:00 34.5 kg/m2 [facility] Index) [facility] (LUF/DAVID/SA) Body Temperature 2018-09-01 13:59:00 98 F [facility] (LUF/DAVID/SA) Pulse Rate 2018-09-01 12:15:00 74 /min [facility] (LUF/DAVID/SA) Respiratory Rate 2018-09-01 12:15:00 16 /min [facility] (LUF/DAVID/SA) O2% BldC Oximetry 2018-09-01 12:15:00 98 % [facility] (LUF/DAVID/SA) BP Systolic 2018-09-01 12:15:00 131 mm[Hg] [facility] (LUF/DAVID/SA) BP Diastolic 2018-09-01 12:15:00 78 mm[Hg] [facility] (LUF/DAVID/SA) Height 2018-09-01 09:16:00 64 in [facility] (LUF/DAVID/SA) Weight Measured 2018-09-01 09:16:00 214.24 lbs [facility] (LUF/DAVID/SA) BMI (Body Mass 2018-09-01 09:16:00 37 kg/m2 [facility]) [facility] (LUF/DAVID/SA) Body Temperature 2018-05-13 10:58:00 99 F [facility] (LUF/DAVID/SA) Pulse Rate 2018-05-13 10:58:00 97 /min [facility] (F/DAVID/SA) Respiratory Rate 2018-05-13 10:58:00 18 /min [facility] (LUF/DAVID/SA) O2% BldC Oximetry 2018-05-13 10:58:00 98 % [facility] (LUF/DAVID/SA) BP Systolic 2018-05-13 10:58:00 131 mm[Hg] [facility] (LUF/DAVID/SA) BP Diastolic 2018-05-13 10:58:00 88 mm[Hg] [facility] (LUF/DAVID/SA) Height 2018-05-13 10:58:00 64 in [facility] (LUF/DAVID/SA) Weight Measured 2018-05-13 10:58:00 207.23 lbs [facility] (LUF/DAVID/SA) BMI (Body Mass 2018-05-13 10:58:00 35.8 [facility] (LUF/DAVID/SA) Body Temperature 2017-12-24 08:04:00 98.7 F [facility] (LUF/DAVID/SA) Respiratory Rate 2017-12-24 08:04:00 18 /min [facility] (F/DAVID/SA) O2% BldC Oximetry 2017-12-24 08:04:00 98 % [facility] (F/DAVID/SA) BP Systolic 2017-12-24 08:04:00 126 mm[Hg] [facility] (LUF/DAVID/SA) BP Diastolic 2017-12-24 08:04:00 86 mm[Hg] [facility] (LUF/DAVID/SA) Weight Measured 2017-12-24 08:04:00 207.23 lbs [facility] (F/DAVID/SA) Body Temperature 2017-06-20 23:28:00 97.4 F [facility] (F/DAVID/SA) Respiratory Rate 2017-06-20 23:28:00 20 /min [facility] (F/DAVID/SA) O2% BldC Oximetry 2017-06-20 23:28:00 99 % [facility] (LUF/DAVID/SA) BP Systolic 2017-06-20 23:28:00 107 mm[Hg] [facility] (LUF/DAVID/SA) BP Diastolic 2017-06-20 23:28:00 76 mm[Hg] [facility] (LUF/DAVID/SA) Height 2017-06-20 23:28:00 64 in [facility] ([facility]/DAVID/SA) Weight Measured 2017-06-20 23:28:00 217.15 lbs [facility] Abhinav islas [facility] (LUF/DAVID/SA) BMI (Body Mass 2017-06-20 23:28:00 37.5 [facility] ([facility]/DAVID/SA) Procedures Procedure Date / Time Performing Clinician Source Performed POCT SARS-COV-2 ANTIGEN 2022-06-13 23:43:00 Magdalene Lucia [facility] (BINAX NOW) Medical Branch CT ABDOMEN PELVIS WO 2022-05-07 15:06:09 Ridge Pagan [facility] Branch BASIC METABOLIC PANEL (NA, 2022-05-07 14:20:00 Ridge Pagan [facility] K, CL, CO2, GLUCOSE, BUN, Medica l Branch CREATININE, CA) CBC WITH DIFF 2022-05-07 14:20:00 Ridge Pagan [facility] URINALYSIS 2022-05-07 14:20:00 Ridge Pagan [facility] CONSENT/REFUSAL FOR 2022-05-07 13:49:51 Doctor Unassroxana, [facility] DIAGNOSIS AND TREATMENT [facility] CT ABDOMEN PELVIS WO 2022-02-19 15:49:34 Trice Harris [facility] Branch LIPASE 2022-02-19 14:26:00 [facility] METABOLIC PANEL 2022-02-19 14:26:00 Trice Harris [facility] ([id number]) Medical Branch CBC WITH DIFF 2022-02-19 14:26:00 Steven [facility] URINALYSIS 2022-02-19 14:26:00 Steven [facility] CONSENT/REFUSAL FOR 2022-02-19 14:11:01 Doctor Unassroxana, [facility] DIAGNOSIS AND TREATMENT [facility] [place] POCT MOLECULAR FLU 2021-11-29 22:46:00 Green, Ameena [facility] INS INFUS DEV LT BASILIC 2020-03-15 00:00:[address] [facility] VN PERQ [facility] (LUF/DAVID/SA) ULTRASONOGRAPHY LT UP EXT 2020-03-15 00:00:[address] [facility] VNS GUID [facility] (LUF/DAVID/SA) ROBOTIC LAP LYSIS OF 2020-03-02 12:56:[address] [facility] ADHESIONS [facility] (LUF/DAVID/SA) LAPAROSCOPY ENTEROLYSIS 2020-03-02 00:00:[address] [facility] SEPARATE PROCEDU [facility] (LUF/DAVID/SA) COLONOSCOPY FLX DX W/COLLJ 2020-02-26 00:00:[address] [facility] SPEC WHEN PFR [facility] (LUF/DAVID/SA) ROBOTIC RIGHT OOPHORECTOMY 2019-03-21 17:09:[address] [facility] LUF (Right) [facility] (LUF/DAVID/SA) CYSTO RGP STENT PLACEMENT 2015-04-20 14:01:[address] [facility] LUF [facility] (LUF/DAVID/SA) CYSTO RGP STENT PLACEMENT 2015-04-20 14:01:[address] [facility] LUF [facility] (LUF/DAVID/SA) [facility]) Total thyroidectomy [facility] section [facility]ID/SA) ABDOMINAL ADHESIONS [facility] REMOVED [facility] (LUF/ADVID/SA) Extracorporeal shockwave [facility] lithotripsy [facility] (LUF/DAVID/SA) MULTIPLE CYSTECTOMYS DONE [facility]) MULTIPLE CYSTECTOMYS DONE [facility]ID/SA) ABDOMINAL ADHESIONS [facility] REMOVED [facility] (LUF/DAVID/SA) Append[facility] Plan of Care Planned Activity Planned Date Details Comments Source Future Scheduled 2022-01-03 COVID-19 Vaccination [facility] [place] Test 06:07:35 (#1) [code = HOWIE BARNARD And louisa Cancer Vaccination (#1)] Center Future [...] Nba, STLMLC STLMLC Common 08:27:02 Josué 0127 [facility] 2021-07-26 Outpatient Nba, STLMLC STLMLC Common 14:20:31 Josué 1203 [facility] 2021-07-26 Outpatient Nba, STLMLC STLMLC Common 14:05:52 Josué 1027 [facility] 2021-07-26 Outpatient Nba, STLMLC STLMLC Common 12:01:28 Josué 1103 [facility] 2021-07-26 Outpatient Nba, STLMLC STLMLC Common 11:56:42 Josué 1019 [facility] 2021-07-26 Outpatient Nba, STLMLC STLMLC Common 11:49:38 Josué 0928 [facility] 2021-07-26 Outpatient Nba, STLMLC STLMLC Common 11:48:02 Josué 0922 [facility] 2021-07-26 Outpatient Nba, STLMLC STLMLC Common 11:47:47 Josué 0921 [facility] 2021-07-26 Outpatient Nba, STLMLC STLMLC Common 11:42:15 Josué 0901 [facility] 2021-07-26 Outpatient Nba, STLMLC STLMLC Common 11:32:09 Josué 0720 [facility] 2022-07-22 2022-07-22 Outpatient FOG_Dunn_Wa AOSM AOSM [id number] Adelia 00:00:00 00:00:00 Jhon [id number] [facility] 2022-07-06 2022-07-06 Outpatient FOG_Dunn_Wa AOSM AOSM [id number] Adelia 00:00:00 00:00:00 Jhon [id number] [facility] 2022-06-17 2022-06-17 Outpatient FOG_Dunn_Wa AOSM AOSM [id number] Adelia 00:00:00 00:00:00 Jhon [id number] [facility] 2022-06-13 2022-06-13 [id number] Univers 17:20:00 17:41:53 MAGDALENE [facility] 2022-06-13 2022-06-13 Urgent Magdalene Lucia [facility] [id number] Univers 17:20:00 17:41:53 Care Unknown, [facility] HEALTH [id number] ity [facility] [id number] Jacques as SUE?BLEA [id number] [address] MEDICAL OFFICE [facility] 2022-06-13 2022-06-13 Telephone [facility] [id number] Univers 00:00:00 00:00:00 [facility] [id number] it y [facility] [id number] Jacques as SUE?BLEA [id number] [address] MEDICAL OFFICE [facility] 2022-05-13 2022-05-13 Outpatient FOG_Dunn_Wa AOSM AOSM [id number] Adelia 00:00:00 00:00:00 Jhon [id number] [facility] 2022-05-07 2022-05-07 Emergency X EJ [facility] ERT [id number] Univers 07:57:00 09:45:00 RIDGE melo [facility] 2022-05-07 2022-05-07 Emergency Ej, [facility] [id number] Univers 07:57:00 09:45:00 Ridge GAONA [id number] i ty [facility] [id number] [facility] [id number] [address] 2022-05-07 2022-05-07 Outpatient FOG_Dunn_Wa AOSM AO [id number] Adelia 00:00:00 00:00:00 Jhon [id number] [facility] 2022-04-23 2022-04-23 Emergency EM PACO Quintero [id number] [facility] 09:39:00 10:55:00 Truman [facility] 2022-02-19 2022-02-19 Emergency X STEVEN, [facility] ERT [id number] Univers 09:15:00 11:05:00 TRICE phoebe [facility] 2022-02-19 2022-02-19 Emergency [facility] [id number] Univers 09:15:00 11:05:00 Trice GAONA [id number] i ty [facility] [id number] [facility] [id number] [address] 2021-11-29 2021-11-29 Urgent [facility] [id number] Univers 17:40:00 18:00:[address] [facility] [id number] it y of [facility] [id number] Jacques as SUE?BLEA [phone] Wa dical [address] MEDICAL OFFICE BUILDING 2021-11-29 2021-11-29 Outpatient [facility] [id number] Univers 17:40:00 17:40:00 [facility] 2021-11-29 2021-11-29 Outpatient [facility] [id number] Univers 17:40:00 17:40:00 [facility] 2021-10-26 2021-10-26 Office EL Shiva, 1.2.840.1 [id number] Univers 09:45:00 10:47:06 Visit Praveen 53116.1.1 ity of 3.412.2.7 [place] .3.299300 MD Carter8 [facility] 2021-10-26 2021-10-26 Office Shiva, 1.2.840.1 [id number] Univers 09:45:00 10:47:06 Visit Praveen 12713.1.1 ity of 3.412.2.7 [place] .3.373335 MD Carter8 [facility] 2021-10-26 2021-10-26 Travel 1.2.840.1 [id number] [id number] Univers 00:00:00 00:00:00 [id number] 350.1.13.41 ity of 3[place]412.2.[place]3.[place] 084.8 MD Carter8 [facility] 2021-10-26 2021-10-26 Travel 1.2.840.1 [id number] [id number] Univers 00:00:00 00:00:00 [id number] 350.1.13.41 ity of 3.412.2.[place].641728 084.8 MD Diaz [facility] 2021-10-15 2021-10-15 ST AMYStefanie EMD [id number] 22:25:00 22:45:00 CONSCIOUS EKTA Gamboa s SIMULATION Memor prabhakar watts (LUF/LI V/SA) 2021-10-15 2021-10-15 Inpatient [facility] [id number] [facility] 00:[facility] 00:00:00 [place] [id number] Gutierrez [facility], [id number] Memor prabhakar [address] [id number] stefanie MEHTA (LUF/LI AVE, V/SA) JULIÁN ROSA [address] 2021-10-15 2021-10-15 Inpatient [facility] [id number] 00:00:00 00:00:00 [place] [id number] Gutierrez es [place], [phone] Memor ia [address] [id number] l [place] (LUF/YUKI WEBB, V/[place]) [place] [address] 2021-08-29 2021-08-29 Outpatient R TERE [facility] [id number] Univers 16:20:00 16:20:00 PATRICK [facility] 2021-08-07 2021-08-07 Emergency EM Tyree, [facility] AMPARO [id number] [facility] 09:36:00 12:55:00 Olga 19 [facility] 2021-08-01 2021-08-02 Emergency X DEVORA [facility] ERT [id number] Univers 22:00:00 01:17:[address] [facility] 2021-08-01 2021-08-02 Emergency [facility] [id number] Univers 22:00:00 01:17:00 Leanne La EFFIE [id number] i ty of [place] [id number] [facility] [address] [place] 2021-06-28 2021-06-28 Outpatient R KHARI [facility] [id number] Univers 17:30:00 17:30:00 MAGDALENE [facility] 2021-06-22 2021-06-22 Letter REHAN Chaves 1.2.840.114 [id number] Univers 00:00:00 00:00:00 (Out) Eve LEE [id number] it y [facility] 4.2.7.2.686 Jacques as [id number] [facility] [address] [place] 2021-06-22 2021-06-[address] [facility] 1.2.840.114 [id number] Univers 00:00:00 00:00:00 Ciapple 350.1.13.10 it y of [place] 4.2.7.2.686 Jacques as SUE?BLEA [id number] [address] MEDICAL OFFICE BUILDING 2021-06-21 2021-06-21 Outpatient R TERE [facility] [id number] Univers 11:00:00 12:14:12 PATRICK ity [facility] 2021-06-21 2021-06-21 Urgent Patrick Carranza [facility] 1.2.840.114 [id number] Univers 11:00:00 11:20:[address] [facility] [id number] ity of [place] 4.2.7.2.686 Jacques as SUE?BLEA [phone] [address] OFFICE [facility] 2021-06-21 2021-06-[address] [facility] 1.2.840.114 [id number] Univers 00:00:00 00:00:00 [facility] [id number] it y of [place] 4.2.7.2.686 Jacques as SUE?BLEA [id number] [address] OFFICE [facility] 2021-06-21 2021-06-21 Letter Doctor REHAN 1.2.840.114 [id number] Univers 00:00:00 00:00:00 (Out) Unassigned, ROSA [id number] ity of [place] [facility] 4.2.7.2.686 Jacques as [id number] [address] 2021-05-30 2021-05-30 (TEL) [facility] [id number] Co mmon 00:00:00 00:00:00 [facility] 2021-05-29 2021-05-29 (TEL) [facility] [id number] Co mmon 00:00:00 00:00:00 [facility] 2021-04-26 2021-04-26 (TEL) [facility] [id number] Co mmon 00:00:00 00:00:00 [facility] 2021-04-23 2021-04-23 UNSPECIFIE 1 LONI DYKES EMD [id number] [facility] 00:46:00 02:08:00 Chin Dhaliwal ABDOMINAL Memori a PAIN l (LUF/YUKI V/SA) 2021-04-23 2021-04-23 Inpatient [facility] [id number] [facility] St 00:00:00 00:00:00 [place] [id number] [facility], [id number] Memor ia [id number] [address] ([address], V/SA) [place] [address] 2021-04-23 2021-04-23 Inpatient [facility] [id number] [facility] 00:00:00 00:00:00 [place] [id number] [facility], [phone] Memor ia [address] [id number] l [address] ([address], V/SA) [place] [address] 2021-03-24 2021-03-24 ANXIETY 1 COT[place], [facility] [id number] [facility] 10:25:00 12:27:00 DISORDER REHAN [facility] [place], Memor ia D [address] ([address], V/SA) [place] [address] 2021-03-24 2021-03-24 Inpatient [facility] [id number] [facility] 00:00:00 00:00:00 [place] [id number] [facility], [phone] Memor ia [address] [id number] l [address] ([address], V/SA) [place] [address] 2021-03-24 2021-03-24 Inpatient [facility] [id number] [facility] 00:00:00 00:00:00 [place] [id number] [facility], [id number] Memor ia [address] [id number] l [address] ([address], V/SA) [place] [address] 2021-03-23 2021-03-23 Orders Nofies, [id number] [facility] 00:00:00 00:00:00 Only Viktoriya Charlton [id number] ity of [id number] [place] .[id number] .8 [facility] 2021-03-10 2021-03-10 UTI SITE E [place], [facility] [id number] [facility] 10:29:00 13:50:00 NOT JUAN [facility], Memori a [address] ([address], V/SA) [place] [address] 2021-03-10 2021-03-10 Inpatient [facility] 16e7 6598-b [facility] 00:00:00 [place]O [id number]-[id number] [facility], [id number] Memor ia [address] [id number] l [address] (LUF/LI [address], V/[place]) [place] [address] 2021-03-10 2021-03-10 Inpatient [facility] 518c 3339-c [facility] 00:00:00 00:00:00 [place] [id number] [facility], [id number] Memor ia [address] [id number] l [place] (LUF/LI AVE, V/[place]) [place] [address] 2021-02-23 2021-02-23 RIGHT E [facility] [id number] [facility] 08:15:00 12:44:00 LOWER [facility], Memoria PAIN [address] (LUF/LI AVE, V/SA) [place] [address] 2021-02-23 2021-02-23 Inpatient [facility] 89b5 d1de-[address] [facility] 00:00:00 00:00:00 [place]O 09f-[id number]-9 [facility], [id number] Memor ia [address] [id number] l [place] (LUF/LI AVE, V/SA) [place] [address] 2021-02-23 2021-02-23 Inpatient [facility] 8500 e20f-[address] 00:00:00 00:00:00 [place] 1ef-425c-a [facility], [id number] Memor ia [address] 1655de l [place] (LUF/LI A[address], V/SA) [place], [place] [address] 2021-01-10 2021-01-10 RADU DYKES, [facility] [place] [address] [id number] [facility] 00:21:00 03:06:00 [facility] [address] (LUF/LI A[address], V/SA) [place] [address] 2021-01-10 2021-01-10 Inpatient [facility] OF [place] [id number] 2205-c [facility] 00:00:00 00:00:00 [place] [id number] [facility], [id number] Memor ia [address] [id number] l [place] (LUF/LI A[address], V/SA) [place] [address] 2021-01-10 2021-01-10 Inpatient M[facility] OF [facility] fe83-e [facility] 00:00:00 00:00:00 [place]CR[place]O [id number] [facility], [id number] Memor ia [address] [id number] l [place] ([address]F/LI A[address], V/SA) [place] [address] 2020-12-27 2020-12-27 Emergency [facility] Zarina [id number] [place] 00:00:00 00:00:[address] 2020-12-22 2020-12-22 Outpatient 3 LONI MURILLO TIC [id number] [facility] 09:00:00 09:00:00 SKYE Dhaliwal Memoria l (LUF/LI V/SA) 2020-12-13 2020-12-13 Emergency EM Callahan, [facility]CA[facility] [id number] [facility] 01:53:00 06:36:[address] [place] [address] 2020-12-12 2020-12-12 RIGHT Jake COTTON, [facility] 9[address] [id number] [facility] 12:33:00 14:00:00 [facility] [address] (LUF/LI A[address], V/SA) [place] [address] 2020-12-12 2020-12-12 Inpatient [facility] e2c0 cb47-b [facility] 00:[facility] 00:00:00 [place]O 82f-45d0-a [facility], [id number] Memor ia [address] [id number] l [place] (LUF/LI AVE, V/[place]) [place] [address] 2020-12-12 2020-12-12 Inpatient [facility] 43ed f7fe-4 [facility] 00:00:00 00:00:00 SACRAMENTO [id number] [facility], [id number] Memor ia [address] 70ade3 l [address] (LUF/LI AVE, V/[place]) [place] [address] 2020-12-08 2020-12-08 UNSPECIFIE Jake SOTOMAYOR, [facility] [place] [address] [id number] [facility] 09:44:00 12:26:00 D WYATT [facility], [facility] a PAIN [address] (LUF/LI AVE, V/SA) [place] [address] 2020-12-08 2020-12-08 Inpatient [facility] 6a3f a794-a [facility] 00:00:00 00:00:00 SACR[place]O [id number] [facility], [id number] Memor ia [address] [id number] l [place] (LUF/LI AVE, V/[place]) [place] [address] 2020-11-25 2020-11-25 UNSPECIFIE [facility] [id number] [facility] 00:13:00 00:30:00 D [facility], [facility] PAIN [address] (LUF/LI AVE, V/SA) [place] [address] 2020-11-25 2020-11-25 Inpatient [facility] 3041 db6a-[address] 00:00:00 00:00:00 [place]CR[place]O fb6-4754-b [facility], [id number] Memor ia [address] [id number] l [place] ([address]F/LI AVE, V/[place]) [place] [address] 2020-11-25 2020-11-25 Inpatient [facility] a3eb ed11-a [facility] 00:00:00 00:00:00 [place]O [id number] [facility], [id number] Memor ia [address] [id number] l [place] (LUF/LI AVE, V/[place]) [place] [address] 2020-11-21 2020-11-21 ENDOMETRIO 1 [facility] [id number] [facility] 07:14:00 09:53:00 SIS [facility] UNSPECIFIE [place], Memor ia D [address] (LUF/LI AVE, V/[place]) [place] [address] 2020-11-21 2020-11-21 Inpatient [facility] 90f0 278b-0 [facility] 00:00:00 00:00:00 SACRAM[place]O [id number]-4 [facility], 4bb-5eeded Memor ia [address] [id number] l [address] (LUF/LI AVE, V/[place]) [place] [address] 2020-11-21 2020-11-21 Inpatient [facility] 3b21 [id number] [facility] 00:00:00 00:00:00 SACRAMENTO 30a-405e-8 [facility], [id number] Memor ia [address] [id number] l [place] (LUF/LI AVE, V/[place]) [place] [address] 2020-11-14 2020-11-14 GASTRITIS 1 LONI COTTON EMD [id number] [facility] 09:27:00 14:37:00 UNS REHAN Dhaliwal WITHOUT Memoria BLEEDING l (LUF/LI V/SA) 2020-11-14 2020-11-14 Inpatient [facility] d4fe d3e2-[address] 00:00:00 00:00:00 [place]O 3cf-4b7a-a [facility], [id number] Memor ia [address] 2d56cc l [place] (LUF/LI AVE, V/[place]) [place] [address] 2020-11-14 2020-11-14 Inpatient [facility] 324e 65b9-b [facility] 00:00:00 00:00:00 SACRAMENTO 464-403c-8 [facility], [id number] Memor ia [address] [id number] l [address] (LUF/LI AVE, V/SA) [place] [address] 2020-11-08 2020-11-08 OTHER E COTTON, [facility] [id number] [facility] 08:04:00 13:13:00 [facility] [address] (LUF/LI A[address], V/SA) [place], [place] [address] 2020-11-08 2020-11-08 Inpatient [facility] 8079 b52c-c [facility] 00:00:00 00:00:00 [place]O ed8-4ae3-8 [facility], [id number] Memor ia [address] [id number] l [place] (LUF/LI A[address], V/SA) [place], [place] [address] 2020-11-08 2020-11-08 Inpatient [facility] 0f07 dc59-5 [facility] 00:00:00 00:00:00 SACRAMENTO 292-4184-b [facility], [id number]-[id number] Memor ia [address] [id number] l [place] (LUF/LI A[address], V/SA) [place], [place] [address] 2020-11-08 2020-11-08 Inpatient [facility] 40b4 e14c-1 [facility] 00:00:00 00:00:00 SACR[place]O [id number] [facility], [id number] Memor ia [address] [id number] l [place] (LUF/LI A[address], V/SA) [place], [place] [address] 2020-11-01 2020-11-01 NAUSEA E WANDA, [facility] 89200 [id number] [facility] 00:27:00 03:55:00 WITH CLEMENT [facility] UNSPECIFIE [address] D [place] (LUF/LI AVE, V/SA) [place], [place] [address] 2020-11-01 2020-11-01 Inpatient [facility] 1ec3 64c1-c [facility] 00:[facility]:00 00:00:00 SACRAM[place]O [id number]-z [facility], 85a-d1976t Memor ia [address] [id number] l [place] ([address]F/LI A[address], V/SA) [place] [address] 2020-11-01 2020-11-01 Inpatient [facility] 79c0 b023-[address] 00:00:00 00:00:00 SACRAM[place]O [id number]-h [facility], [id number] Memor ia [address] [id number] l [address] (LUF/LI AVE, V/[place]) [place] [address] 2020-10-04 2020-10-05 OTHER E RODRICK, [facility] [id number] 23:32:00 01:00:00 CHRONIC JUAN [facility] PAIN [facility] [address] (LUF/LI A[address], V/[place]) [place] [address] 2020-10-04 2020-10-04 Inpatient [facility] b016 f3f5-a [facility] 00:[facility]:00 00:00:00 SACR[place]O 9q2-6q0w-g [facility], [id number] Memor ia [address] [id number] l [place] (LUF/LI A[address], V/[place]) [place] [address] 2020-10-04 2020-10-04 Inpatient [facility] ea96 0c7a-[address] 00:00:00 00:00:00 SACRAMENTO 25c-4997-b [facility], [id number] Memor ia [address] [id number] l [place] (LUF/LI AVE, V/[place]) [place] [address] 2020-09-18 2020-09-18 OTHER E [facility] [id number] 01:00:00 04:44:00 [facility] [place], Memoria [address] ([address]F/LI A[address], V/[place]) [place] [address] 2020-09-18 2020-09-18 Inpatient [facility] b80a 7ee5-[address] 00:00:00 00:00:00 SACRAM[place]O [id number]-6 [facility], [id number] Memor ia [address] [id number] l [place] (LUF/LI A[address], V/SA) [place] [address] 2020-09-18 2020-09-18 Inpatient [facility] OF [facility] 1a33 0198-a [facility] 00:00:00 00:00:00 SACRAM[place]O [id number] [facility], [id number] Memor ia [address] [id number] l [address] ([address]F/LI A[address], V/[place]) [place] [address] 2020-09-12 2020-09-12 ENDOMETRIO E RODRICK, [facility] [place] [address] [id number] [facility] 00:46:00 02:38:00 SIS [facility] UNSPECIFIE [place], Memor ia D [address] ([address]F/LI A[address], V/[place]) [place] [address] 2020-09-12 2020-09-12 Inpatient [facility] 726d 153b-a [facility] 00:00:00 00:00:00 SACRAMENTO v2x-4401-0 [facility], [id number] Memor ia [address] [id number] l [place] ([address]F/LI A[address], V/[place]) [place] [address] 2020-09-12 2020-09-12 Inpatient [facility] 9a2d b59c-c [facility] 00:[facility]:00 00:00:00 SACRAM[place]O [id number] [facility], [id number] Memor ia [address] 655cce l [place] ([address]F/LI A[address], V/[place]) [place] [address] 2020-08-22 2020-08-22 OTHER E RODRICK, [facility] [id number] 01:13:00 03:24:00 CHRONIC JUAN [facility], Memoria [address] ([address]F/LI A[address], V/[place]) [place] [address] 2020-08-22 2020-08-22 Inpatient [facility] 7a1d d2a9-[address] 00:00:00 00:00:00 [place]CR[place]O [id number] [facility], [id number] Memor ia [address] [id number] l [place] ([address]F/LI A[address], V/[place]) [place] [address] 2020-08-22 2020-08-22 Inpatient [facility] 53d3 2542-f [facility] 00:00:00 00:00:00 SACRAMENTO 72a-4479-9 [facility], [id number] Memor ia [address] [id number] l [place] ([address]F/LI A[address], V/[place]) [place] [address] 2020-08-06 2020-08-06 Inpatient E RODRICK, [facility] [id number] 01:21:00 03:35:00 [facility] [address] (LUF/LI A[address], V/SA) [place] [address] 2020-08-06 2020-08-06 Inpatient [facility] 07b7 067c-a [facility] 00:00:00 00:00:00 SACRAM[place]O 5x8-8yn2-0 [facility], [id number] [facility] [address] [id number] l [place] ([address]F/LI A[address], V/[place]) [place] [address] 2020-07-19 2020-07-19 RIGHT E COTTON, [facility] [id number] 07:50:00 11:20:00 [facility] PAIN [address] (LUF/LI A[address], V/[place]) [place] [address] 2020-07-19 2020-07-19 Inpatient [facility] 625d 6050-c [facility] 00:00:00 00:00:00 [place]CR[place]O 92c-4e48-9 [facility], [id number] Memor ia [address] [id number] l [place] ([address]F/LI A[address], V/[place]) [place] [address] 2020-07-19 2020-07-19 Inpatient [facility] 0f28 [id number] 00:00:00 00:00:00 [place]CR[place]O bbb-4c99-b [facility], [id number] Memor ia [address] [id number] l [place] (LUF/LI A[address], V/SA) [place] [address] 2020-07-05 2020-07-05 OTHER E SANANAVDEEP, [facility] 69732 [id number] [facility] 02:42:00 05:00:00 CHRONIC JUAN [facility], Memoria [address] ([address]F/LI A[address], V/SA) [place] [address] 2020-07-05 2020-07-05 Inpatient [facility] 525e 4189-f [facility] 00:00:00 00:00:00 SACRAMENTO bff-495f-b [facility], [id number] Memor ia [address] [id number] l [place] ([address]F/LI A[address], V/[place]) [place] [address] 2020-07-05 2020-07-05 Inpatient [facility] c54b 2c2e-e [facility] 00:00:00 00:00:00 [place]CR[place]O [id number] [facility], [id number] Memor ia [address] [id number] l [place] (LUF/LI AVE, V/SA) [place] [address] 2020-06-10 2020-06-10 (TEL) [facility] [id number] Co mmon 00:00:00 00:00:00 [facility] 2020-06-07 2020-06-07 Inpatient 1 COTTON, [facility] [id number] [facility] 12:56:00 19:04:00 [facility] [address] ([address]F/LI A[address], V/SA) [place] [address] 2020-06-07 2020-06-07 Inpatient [facility] 5603 9727-e [facility] 00:00:00 00:00:00 SACR[place]O aaa-[id number] [facility], [id number] [facility] [address] [id number] l [place] ([address]F/LI A[address], V/SA) [place] [address] 2020-05-31 2020-05-31 Inpatient E COTTON, [facility] [place] [id number] 09:31:00 14:13:00 [facility] [address] [place] (LUF/LI A[address], V/SA) [place] [address] 2020-05-10 2020-05-10 Outpatient STLMLC STLMLC [id number] Common 00:00:00 00:00:00 [facility] 2020-05-09 2020-05-09 Outpatient STLMLC STLMLC [id number] Common 00:00:00 00:00:00 [facility] 2020-05-05 2020-05-05 Outpatient STLMLC STLMLC [id number] Common 00:00:00 00:00:00 [facility] 2020-05-02 2020-05-02 Outpatient STLMLC STLMLC [id number] Common 00:00:00 00:00:00 [facility] 2020-05-02 2020-05-02 Outpatient STLMLC STLMLC [id number] Common 00:00:00 00:00:00 [facility] 2020-04-29 2020-04-29 Outpatient STLMLC STLMLC [id number] Common 00:00:00 00:00:00 [facility] 2020-04-25 2020-04-25 LEFT LOWER E [facility] [place] [id number] 16:46:00 21:30:00 [facility] [address] [place] (LUF/LI A[address], V/SA) [place] [address] 2020-04-22 2020-04-22 Outpatient STLMLC STLMLC [id number] Common 00:00:00 00:00:00 [facility] 2020-04-20 2020-04-20 PROC&[place] [facility] [place] [id number] 15:39:00 16:03:00 NOT [facility] OUT PT [address]AVE [place] (TIERA/YUKI PIZANOE, V/SA) [place] [address] 2020-04-20 2020-04-20 Outpatient STLMLC STLMLC [id number] Common 00:00:00 00:00:00 [facility] 2020-04-20 2020-04-20 Outpatient STLMLC STLMLC [id number] Common 00:00:00 00:00:00 [facility] 2020-04-15 2020-04-15 Outpatient STLMLC STLMLC [id number] Common 00:00:00 00:00:00 [facility] 2020-04-13 2020-04-13 Outpatient STLMLC STLMLC [id number] Common 00:00:00 00:00:00 [facility] 2020-04-12 2020-04-12 Outpatient STLMLC STLMLC [id number] Common 00:00:00 00:00:00 [facility] 2020-04-11 2020-04-11 Outpatient STLMLC STLMLC [id number] Common 00:00:00 00:00:00 [facility] 2020-04-08 2020-04-08 Outpatient STLMLC STLMLC [id number] Common 00:00:00 00:00:00 [facility] 2020-04-06 2020-04-06 Outpatient STLMLC STLMLC [id number] Common 00:00:00 00:00:00 [facility] 2020-04-04 2020-04-04 Outpatient STLMLC STLMLC [id number] Common 00:00:00 00:00:00 [facility] 2020-03-31 2020-03-31 Outpatient STLMLC STLMLC [id number] Common 00:00:00 00:00:00 [facility] 2020-03-29 2020-03-29 Outpatient GEOVANI BLAS MDA MDA [id number] MD 00:00:00 00:00:00 PRAVEEN payton 2020-03-29 2020-03-29 Outpatient STLMLC STLMLC [id number] Common 00:00:00 00:00:00 [facility] 2020-03-28 2020-03-28 Outpatient STLMLC STLMLC [id number] Common 00:00:00 00:00:00 [facility] 2020-03-22 2020-03-22 Outpatient STLMLC STLMLC [id number] Common 00:00:00 00:00:00 [facility] 2020-03-21 2020-03-21 Outpatient STLMLC STLMLC [id number] Common 00:00:00 00:00:00 [facility] 2020-03-20 2020-03-20 FEDE COTTON, [facility] [place] [id number] 17:08:00 22:56:00 ABDOMINAL REHAN [facility] PAIN [facility] UNSPECIFIE [address] stefanie [address] (LUF/LI AVE, V/SA) [place] [address] 2020-03-14 2020-03-17 CELLULITIS E RIVERA, [facility] [place] [id number] 14:54:00 11:30:00 OF JEHOVAH'S WITNESS [facility] ABDOMINAL [facility] a WALL [address] stefanie [address] (LUF/LI AVE, V/SA) [place] [address] 2020-03-03 2020-03-03 [facility] [id number] Common 13:33:00 13:33:00 Clinics [facility] 2020-03-02 2020-03-02 FE RYAN WOLFE, [facility] [place] [id number] 05:58:00 15:35:[address] [facility] POSTINFECT [address]efanie [address] (LUF/LI A[address], V/SA) [place] [address] 2020-03-02 2020-03-02 Outpatient STLMLC STLMLC [id number] Common 00:00:00 00:00:00 [facility] 2020-03-01 2020-03-01 Outpatient [facility] [id number] Common 09:15:00 09:15:00 [facility] 2020-02-29 2020-02-29 Outpatient [facility] [id number] Common 09:30:00 09:30:00 Clinics Clinics [facility] 2020-02-25 2020-02-27 LOWER E COTTON, [facility] [id number] [facility] 13:21:00 12:09:00 ABDOMINAL REHAN [facility] PAIN [place], [facility] U[facility] [address] D [place] (LUF/LI AVE, V/SA) [place] [address] 2020-02-25 2020-02-25 UNSPECIFIE E RODRICK, [facility] [id number] [facility] 00:40:00 05:00:00 D JUAN [facility] ABDOMINAL [place], Memori a PAIN [address] (LUF/LI AVE, V/SA) [place] [address] 2020-01-25 2020-01-25 LOW BACK 1 COTTON, [facility] [id number] [facility] 11:28:00 13:15:00 [facility] [place], [facility] [address] (LUF/LI AVE, V/SA) [place] [address] 2020-01-18 2020-01-18 Outpatient [facility] [id number] Common 11:45:00 11:45:00 Clinics [facility] 2019-12-09 2019-12-09 OTHER E [facility] [id number] [facility] 03:03:00 05:08:00 CHRONIC [facility] PAIN [place] [address], V/SA) [place] [address] 2019-11-24 2019-11-24 UNSPECIFIE E [facility] [id number] [facility] [address] 00:31:00 05:30:00 D SACRAMENTO [facility] ABDOMINAL [place], [facility] a PAIN [address], V/SA) [place] [address] 2019-10-07 2019-10-07 RIGHT 1 COTTON, [facility] [id number] 20:35:00 23:10:00 LOWER REHAN SACRAMENTO [facility] [place] PAIN [address], V/[place]) [place] [address] 2019-09-20 2019-09-20 RIGHT 1 YURY, [facility] [id number] 00:33:00 04:23:00 LOWER REHAN SACRAMENTO [facility] [place] PA[facility] [address], V/SA) [place] [address] 2019-08-17 2019-08-17 UNSPECIFIE 1 MYNORMAYA, [facility] [id number] 02:18:00 04:45:00 D JEHOVAH'S WITNESS SACRAMENTO [facility]AL [place] PAIN [address], V/SA) [place] [address] 2019-04-22 2019-04-22 [facility] [id number] Common 12:03:00 12:03:00 [facility] 2019-04-14 2019-04-14 [facility] [id number] Common 16:12:00 16:12:00 [facility] 2019-04-06 2019-04-06 [facility] [id number] Common 12:16:00 12:16:00 [facility] 2019-03-31 2019-03-31 [facility] [id number] Common 14:00:00 14:00:00 [facility] 2018-12-07 2018-12-07 UNSPECIFIE 1 QUINTIN BRITO [facility] [id number] [facility] 01:06:00 04:45:00 D OVARIAN SACRAMENTO [facility] CYST RIGHT [place] SIDE [address], V/SA) [place] [address] 2018-10-29 2018-10-29 N-PRSS CHR JAY, [facility] [id number] [facility] 06:59:00 23:59:00 [facility]IN [facility] [place] [address], V/[place]) [place] [address] 2018-10-22 2018-10-22 N-PRSS CHR BLAJAYLYNTAD, [facility] [id number] [facility] 07:20:00 23:59:00 ULCR SKIN MIKY [facility] [address], V/SA) [place] [address] 2018-10-15 2018-10-15 N-PRSS CHR O BLAJAYLYNTAD, [facility] [id number] [facility] 07:08:00 23:59:00 ULCR SKIN MIKY [facility] [address], V/SA) [place] [address] 2018-09-30 2018-10-01 INFCT FOL 1 SHABNAM, [facility] [id number] [facility] 18:46:00 01:05:00 PRC SUPF DIMAS [facility] SIT INIT [address] V/[place]) [place] [address] 2018-09-01 2018-09-01 OTH 1 WANDA, [facility] [place] [id number] 09:12:00 14:00:00 NONINFL CLEMENT [facility] D/O OVARY [facility] a TUBE&BRD [address], V/[place]) [place] [address] 2018-05-13 2018-05-13 Inpatient 1 WANDA, [facility] [id number] 10:52:00 13:46:00 [facility] [address], V/[place]) [place] [address] 2017-12-24 2017-12-24 UNSPECIFIE 1 QUINTIN BRITO [facility] [id number] [facility] 07:51:00 13:52:00 D OVARIAN [facility] [address] V[address]SA) [place] [address] 2017-06-20 2017-06-21 HYDRONPHRO 1 RODRICK, [facility] [id number] [facility] 23:01:00 03:55:00 S JUAN [facility] RENL&URETR [place] L CALCUL [address], V/[place]) [place] [address] 2017-05-13 2017-05-13 OTHER 3 [place], [facility] [id number] 15:40:00 23:59:00 FATIGUE [facility], [facility] [address]) [place] [address] Results Test Description Test Time Test Comments Results Result Comments Source POCT SARS-COV-2 ANTIGEN (BINAX NOW) 2022-06-13 23:43:00 Test Item Value Reference Range Interpretation Comme nts POCT SARS-COV-2 ANTIGEN (test code = 05863-0) Positive Not Dete cted A On board controls acceptable with C Line (test code = 3574) Yes Lab Interpretation (test code = 76042-4) Abnormal [facility]- XR SHOULDER 2 + V [id number] 16:42:00 [facility] 1985 Sex: F Patient Name: LAUREN BETH Unit No: [id number] EXAMS: CPT CODE: [id number] XR SHOULDER 2 + [place] [address] Left shoulder 3 views COMMENT: There is no evidence for fracture or subluxation. No focal bony lesions are seen. at 1642 Reported and signed by: Angelo Hardin MD CC: Truman Quintero MD Technologist: Jeannette Garcia RT.(R) Transcribed D/ (1641) [facility] NAME: LAUREN BETH [address] [facility] PHYS: Truman Alfaro MD : 1985 AGE: 36 SEX: F [place] [address] LOC: JOHNNIE PHONE #: [phone] EXAM DATE: 04/23/2022 STATUS: DEP ER FAX #: [phone] RAD #: D/C DT PAGE 1 Signed Report Patient Name: LAUREN BETH Unit No: [id number] EXAMS: CPT CODE: [id number] SHOULDER 2 + [place] [address] (Continued) Orig Print D/T: S: 04/23/2022 (1644) [facility] NAME: LAUREN BETH [address] [place] [address] PHYS: Truman Alfaro MD : 1985 AGE: 36 SEX: F [place] [address] LOC: JOHNNIE PHONE #: [phone] EXAM DATE: 04/23/2022 STATUS: DEP ER FAX #: [phone] RAD #: D/C DT PAGE 2 Signed ReportCOMP. METABOLIC PANEL (67831)2022-02-19 14:56:05 Test Item Value Reference Range Interpretation Comments NA (test code = 137 mmol/L 135-145 3834023429) K (test code = 4.2 mmol/L 3.5-5 2233476235) CL (test code = 108 mmol/L 98-108 1919316795) CO2 TOTAL (test code = 19 mmol/L 23-31 L 8584775201) AGAP (test code = 2-16 4500999520) BUN (test code = 14 mg/dL 7-23 7971427112) GLUCOSE (test code = 133 mg/dL 70-110 H 5001990004) CREATININE (test code = 0.56 mg/dL 0.5-1.04 6130315954) TOTAL BILI (test code = 0.4 mg/dL 0.1-1.8 0816697493) CALCIUM (test code = 8.9 mg/dL 8.6-10.6 9638351832) T PROTEIN (test code = 6.5 g/dL 6.3-8.2 0734112124) ALBUMIN (test code = 4.0 g/dL 3.5-5 0553886553) ALK PHOS (test code = 84 U/L 34-122 0109277186) ALTv (test code = 23 U/L 5-35 1742-6) AST(SGOT) (test code = 24 U/L 13-40 6835012452) eGFR (test code = mL/min/1.73m2 9069394873) RENZO (test code = RENZO) Association of [...] tests). Lab Interpretation Abnormal (test code = 19793-9) [facility] 14:55:44 Test Item Value Reference Range Interpretation Comments LIPASE (test code = 7050414595) 81 U/L 0-220 Lab Interpretation (test code = Normal 10589-0) [facility] CenterCB WITH [id number] 14:36:26 Test Item Value Reference Range Interpretation [...] RDW-SD (test code = 43.9 fL 39-49.9 06651-2) RDW-CV (test code = 13.7 % 12-15.5 788-0) PLT (test code = See_Comment [Automated 777-3) message] The sy stem which generated this result transmitted reference range : 166 - 358 10*3/ ?L. The reference r bruce was not used to interpret this result as normal/abnormal . MPV (test code = 8.5 fL 9.5-12.9 L 89724-1) NRBC/100 WBC (test See_Comment [Automat ed code = 3959885149) message] The system which generated this result transmitted reference range : 0.0 - 10.0 /100 WBCs. The refer ence range was not u sed to interpret th is result as normal/abnormal . NRBC x10^3 (test code See_Comment [Auto mated = 0136487724) message] The s ystem which generated this result transmitted reference range : 10*3/?L. The reference range was not used to interpret this result as normal/abnormal . GRAN MAT (NEUT) % 58.7 % (test code = 770-8) IMM GRAN % (test code 1.10 % = 2935841823) LYMPH % (test code = 31.6 % 736-9) MONO % (test code = 6.8 % 5905-5) EOS % (test code = 1.4 % 713-8) BASO % (test code = 0.4 % 706-2) GRAN MAT x10^3(ANC) 3.30 10*3/uL 1.88-7.09 (test code = 3161104816) IMM GRAN x10^3 (test 0.06 10*3/uL 0-0.06 code = 2725685742) LYMPH x10^3 (test code 1.77 10*3/uL 1.32-3.29 = 731-0) MONO x10^3 (test code 0.38 10*3/uL 0.33-0.92 = 742-7) EOS x10^3 (test code = 0.08 10*3/uL 0.03-0.39 711-2) BASO x10^3 (test code 0.01-0.07 = 704-7) Lab Interpretation Abnormal (test code = 81829-5) [facility] CenterPO[facility]ULAR [id number] 22:58:14 Test Item Value Reference Range Interpretation Comments POCT Molecular FluA (test code = Negative Negative 81511-0) POCT Molecular FluB (test code = Negative Negative 11515-7) Lab Interpretation (test code = Normal 35767-9) [facility] CenterHEPAT[facility] FUNCTION PANEL (LIVER)2021-10-16 13:57:00 [...] (test code = 0.2 mg/dl 0.0-1.1 IBIL) [id number] 13:57:00 Test Item Value Reference Range Interpretation Comments Lipase (test code = LIPA) 114 U/L 73-393 STLAMYLASE, [id number] 13:57:00 Test Item Value Reference Range Interpretation Comments Amylase (test code = AMYL) 51 U/L 25-[address] [facility] CHEM [id number] 22:45:00 Test Item Value Reference Range Interpretation [...] = CO2) 22.1 mmol/l 24.0-29.[address] [facility] CBC WITH AUTO [id number] 22:43:00 Test Item Value Reference Range Interpretation [...] = IG%) 0.2 % 0.0-0.4 STLMLHEPATIC FUNCTION [id number] 13:03:00 Test Item Value Reference Range Interpretation [...] 96 Unit/L 45-117 N code = ALKP) [id number] 13:03:00 Test Item Value Reference Range Interpretation Comments LIPASE (test code = LIP) 83 Unit/L 114-286 L BASIC METABOLIC [id number] 13:03:00 Test Item Value Reference Range Interpretation [...] 8.5-10.1 N UA RFLX MICR CULT IF [id number] 12:44:00 Test Item Value Reference Range Interpretation [...] OF URINE: CLEAN CATCH- CT ABD PELVIS [id number] 12:27:00 [facility] : 1985 Sex: F Name: LAUREN BETH [facility] : 1985 Age/S: 36 / F [address] [place] Unit #: [id number]: Julián [place] [address] Phys: Marco Hilton 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 [...] [place] : 1985 Age/S: 36 / F [address] Unit #: [id number] Loc: [place] [address] Phys: Marco Hilton NP Acct: [id number] Dis Date: Status: REG ER PHONE #: [phone] Exam Date: 08/07/2021 1223 FAX #: Reason: LLQ ABD PAIN EXAMS: CPT: [id number] CT ABD PELVIS W/CONT 57395 < Continued> at 1227 Reported and signed by: Alma Cartwright M.D. CC: Olga Clements DO; Marco Hilton NP Technologist:RT Danyelle(R) CTDI: DLP: Trnscb Date/Time: 08/07/2021 (0309) [id number] Orig Print D/T: S: 08/07/2021 (8032) PAGE 2 Signed ReportCBC W/AUTO [id number] 12:23:00 Test Item Value Reference Range Interpretation [...] DIFF/SCN CRITERIA = MDIFF) [facility] 2019 [facility])2021-03-24 17:04:00 Test Item Value Reference Range Interpretation Comments FT (test code Negative Negative N The Bio[employer] SARS -CoV-2 = COVID) (qualifier value) Reagents f or BD MAX System, the Instacover Covid-19, and t Cepheid Covid-1 9 is [...] contact the [facility] at [phone]. [id number] 12:37:00 Test Item Value Reference Range Interpretation [...] 0.5-1.3 code = CREA) EGFR if >60 Tanzanian (test code mL/min/1.73m\\ = EGFRAA) S\\2 EGFR if Non- >60 Estimate d Glomerular Tanzanian (test code mL/min/1.73m\\ Filtrat ion Rate (eGFR) [...] of c hronic kidney failure. STLMLSTAT LAB [id number] 12:11:00 Test Item Value Reference Range Interpretation [...] after the clini felipa event. STLMLPT AND [id number] 12:09:00 Test Item Value Reference Range Interpretation Comments Protime (test code 9.5 seconds 9.5-12.1 = PT) INR (test code = 0.9 0.9-1.1 INR results are intended INR) ONLY to monitor Oral Anticoagulant t herapy in stablized patie nts. The INR Therapeutic Range is 2.0 - 3.0 Patie nts with a mechanical he art, the INR Range is 2. 5 - 3.5 [id number] 12:09:00 Test Item Value Reference Range Interpretation Comments aPTT (test code = PTT) 22.3 seconds 23.9-30.7 L STLMLSTAT LAB CBC WITH AUTO [id number] 11:57:00 Test Item Value Reference Range Interpretation [...] 0.3 % 0.0-0.4 STLMLXR CHEST AP/PA 1 [id number] 11:33:32 [facility])Name: LAUREN BETH : 1985 Sex: FProcedure: XR CHEST AP/PA 1 VIEWOrder Date: 03/24/2021 10:57 AMOrdering Provider: REHAN Farrellinical Indication: [id number]: DyspneaComparison: September 30, 2018Findings:Cardiac size is normal.Pulmonary vasculature is normal.Mediastinal contour is normal.Aortic contour is normal.No acute infiltrates or effusions.There is no mass or pneumothorax.There is no evidence of active tuberculosis.There isno acute skeletal abnormality.Impression: Negative AP view of the chest.This final report was electronically signed by Dr Farzad Dewitt MD :28 AMDictated By: FARZAD DEWITT.Date: :28STLMLCULTURE, [id number] 08:00:00Specimen: Urine SpecimensCollected: 03/10/2021 11:50 Status: Final [...] code = NEGATIVE NEGATIVE N UKET) Specific [place] 1.015 1.005-1.030 A (test code = USPGR) Blood (test code = NEGATIVE NEGATIVE N UBLD) PH (test code = UPH) 7.0 4.5-8.0 A Protein (test code = NEGATIVE NEGATIVE N UPROT) Urobilinogen (test 0.2 See_Comment N [Automat ed message] code = U UROB) The system [facility] generated this result transmit michael [...] = NSE) STLMLSTAT LAB CBC WITH AUTO [id number] 12:10:00 Test Item Value Reference Range Interpretation [...] = IG%) 0.8 % 0.0-0.[address] [facility] CHEM [id number] 12:08:00 Test Item Value Reference Range Interpretation [...] = CREA) 0.5 mg/dl 0.6-1.3 L STLMLCULTURE, [id number] 08:26:00Specimen: Urine SpecimensCollected: 02/23/2021 08:35 Status: Final Last Updated: 02/24/2021 08:26 CULTURE (Final) (Final) Many Mixed Body Gabriela Isolated No Pathogens IsolatedSTLCT ABDOMEN/PELVIS W/[id number] 11:40:43 [facility])Name: LAUREN BETH : 1985 Sex: FProcedure: CT ABDOMEN/PELVIS W/CONTRASTOrder date: 02/23/2021 10:08 AMOrdering Provider: REHAN COTTONClinical Indication: [id number]: Right lower quadrant painComparison: November 14, 2020Technique: [...] MD 111:35 AMDictated By: WILEY VELÁZQUEZDate: 02/23/2021 11:[id number] 10:44:00 Test Item Value Reference Range Interpretation Comments Lipase (test code = LIPA) 86 U/L 73-393 STLMLURINALYSIS WITH [id number] 08:58:00 Test Item Value Reference Range Interpretation Comments Color (test code = Light-Yellow UCOLR) Clarity (test code = Clear UCLAR) Glucose (test code = NEGATIVE NEGATIVE N UGLUC) Bilirubin (test code NEGATIVE NEGATIVE N = UBILI) Ketones (test code = NEGATIVE NEGATIVE N UKET) Specific [place] 1.020 1.005-1.030 A (test code = USPGR) Blood (test code = NEGATIVE NEGATIVE N UBLD) PH (test code = UPH) 6.0 4.5-8.0 A Protein (test code = NEGATIVE NEGATIVE N UPROT) Urobilinogen (test 0.2 See_Comment N [Automat ed message] code = U UROB) The system [facility] generated this result transmit michael [...] 41-50 0-10 A (test code = SQEP) [facility] CBC WITH AUTO [id number] 08:52:00 Test Item Value Reference Range Interpretation [...] code = IG%) 0.3 % 0.0-0.[address] [facility] CHEM [id number] 08:52:00 Test Item Value Reference Range Interpretation [...] code = CREA) 0.6 mg/dl 0.6-1.[address] [facility] CBC WITH AUTO [id number] 02:37:00 Test Item Value Reference Range Interpretation [...] A value of 55 was entered by [id number] on 01/10/2021 02:3 7 Lymphocytes (test 43 % 13-42 H No previou s value code = LYMPH) was reported. A value of 43 was entered by [id number] on 01/10/2021 02:3 7 Monocytes (test 1 % 4-14 L No previous value code = MONOS) was reported. A value of 1 was entered by [id number] on 01/10/2021 02:3 7 Basophils (test 1 % 0-1 No previous value code = BASO) was reported. A value of 1 was entered by [id number] on 01/10/2021 02:3 7 Normal Morphology Normal WBC RBC Normal RBC \\T\\ N No pre vious value (test code = NRCM) and Platelet WBC was repor michael. A Morphology Morphology,Normal value of N ormal WBC RBC and WBC RBC and Platelet Platelet Morphology Morphology was entered by [id number] on 01/10/2021 02:3 7 STLMLAMYLASE, [id number] 02:14:00 Test Item Value Reference Range Interpretation Comments Amylase (test code = AMYL) 46 U/L 25-115 [id number] 02:14:00 Test Item Value Reference Range Interpretation Comments Lipase (test code = LIPA) 115 U/L 73-393 STLMLURINALYSIS WITH [id number] 02:07:00 Test Item Value Reference Range Interpretation Comments Color (test code = Light-Yellow UCOLR) Clarity (test code = Cloudy UCLAR) Glucose (test code = NEGATIVE NEGATIVE N UGLUC) Bilirubin (test code NEGATIVE NEGATIVE N = UBILI) Ketones (test code = NEGATIVE NEGATIVE N UKET) Specific [place] 1.025 1.005-1.030 A (test code = USPGR) Blood (test code = NEGATIVE NEGATIVE N UBLD) PH (test code = UPH) 6.0 4.5-8.0 A Protein (test code = NEGATIVE NEGATIVE N UPROT) Urobilinogen (test 0.2 See_Comment N [Automat ed message] code = U UROB) The system [facility] generated this result transmit michael [...] A Epithelial (test code = NSE) 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 Acct: [id number] Dis Date: Status: REG ER PHONE #: [phone] Exam Date: 12/13/2020 0325 FAX #: [phone] Reason: DIFFUSE ABD PAIN WORSE RLQ, HX APPY, ROSE EXAMS: CPT CODE: [id number] CT ABD PELVIS W/CONT 66399 AFTER HOURS SERVICE ON: 12/13/2020 3:44 AM [...] 1 Signed Report (CONTINUED) FAX: Annemarie Tesfaye [phone] Daisy: St: REG--------- Name: [facility]ETH [facility] [place] : 1985 Age/S: 35/F [address] Unit: [id number] Loc: [place] [address] Phys: Annemarie Tesfaye NP Acct: [id number] Dis Date: Status: REG ER PHONE #: [phone] Exam Date: 12/13/2020 0325 FAX #: [phone] Reason: DIFFUSE ABD PAIN WORSE RLQ, HX APPY, ROSE EXAMS: CPT CODE: [id number] CT ABD PELVIS W/CONT 28365 <Continued> CC: Annemarie Tesfaye NP Technologist: PAMELA KRISHNAMURTHY; Jessi Guillory; JAIRO SANCHEZ JR Trnscrd Dt/Tm: 12/13/2020 (0346) [id number] Orig Print D/T: S: 12/13/2020 (0349 PAGE 2 Signed ReportCOMPREHENSIVE METABOLIC [id number] 03:32:00 Test Item Value Reference Range Interpretation [...] U/L 38-126 N (test code = ALKP) [id number] 03:32:00 Test Item Value Reference Range Interpretation Comments LIPASE (test code = LIP) 82 U/L 23-300 N BEDSIDE [id number] 03:24:00 Test Item Value Reference Range Interpretation Comments BEDSIDE CREATININE (test code = 0.60 mg/dL 0.51-1.19 N CREATBED) CBC W/AUTO [id number] 03:14:00 Test Item Value Reference Range Interpretation [...] 0.0-0.1 N UA RFLX MICR CULT IF [id number] 02:59:00 Test Item Value Reference Range Interpretation [...] OF URINE: VOIDEDSTAT LAB CBC WITH AUTO [id number] 15:12:00 Test Item Value Reference Range Interpretation [...] entered by [id number] on 12/12/2020 15:12 [facility] LAB CHEM [id number] 14:08:00 Test Item Value Reference Range Interpretation [...] = CREA) 0.5 mg/dl 0.6-1.3 L [facility] URINALYSIS WITHOUT [id number] 12:08:00 Test Item Value Reference Range Interpretation Comments Color (test code = Light-Yellow UCOLR) Clarity (test code = Cloudy UCLAR) Glucose (test code = NEGATIVE NEGATIVE N UGLUC) Bilirubin (test code NEGATIVE NEGATIVE N = UBILI) Ketones (test code = NEGATIVE NEGATIVE N UKET) Specific [place] 1.015 1.005-1.030 A (test code = USPGR) Blood (test code = NEGATIVE NEGATIVE N UBLD) PH (test code = UPH) 7.0 4.5-8.0 A Protein (test code = NEGATIVE NEGATIVE N UPROT) Urobilinogen (test 0.2 See_Comment N [Automat ed message] code = U UROB) The system [employer] generated this result transmit michael reference range : 0.2. The refere nce range was not u sed to interpret th is result as normal/abnormal . Nitrite (test code = NEGATIVE NEGATIVE N UNITR) Leukocyte Esterase NEGATIVE NEGATIVE N (test code = ULEUK) [facility]LIVER)2020-11-21 08:43:00 Test [...] (test code = 0.4 mg/dl 0.0-1.1 IBIL) [facility]URINALYSIS WITH [id number] 08:31:00 Test Item Value Reference Range Interpretation Comments Color (test code = Light-Yellow UCOLR) Clarity (test code = Clear UCLAR) Glucose (test code = NEGATIVE NEGATIVE N UGLUC) Bilirubin (test code NEGATIVE NEGATIVE N = UBILI) Ketones (test code = NEGATIVE NEGATIVE N UKET) Specific [place] 1.020 1.005-1.030 A (test code = USPGR) Blood (test code = NEGATIVE NEGATIVE N UBLD) PH (test code = UPH) 6.5 4.5-8.0 A Protein (test code = NEGATIVE NEGATIVE N UPROT) Urobilinogen (test 0.2 See_Comment N [Automat ed message] code = U UROB) The system [facility] generated this result transmit michael [...] TNTC 0-10 A (test code = SQEP) [facility] LAB CHEM [id number] 08:27:00 Test Item Value Reference Range Interpretation [...] = CREA) 0.5 mg/dl 0.6-1.3 L [facility] CBC WITH AUTO [id number] 08:26:00 Test Item Value Reference Range Interpretation [...] IG%) 0.4 % 0.0-0.4 [facility] [place]-LufkinXR ABDOMEN 2 VIEWS FLAT / [id number] 08:18:50[facility])Name: LAUREN BETH : 1985 Sex: FProcedure: XR ABDOMEN 2 VIEWS FLAT / UPRIGHTOrder Date: 11/21/2020 7:43 AMOrdering Provider: REHAN Farrellinical Indication: [id number]: Abdominal painComparison: Nov 14 2020Findings:Bowel gas pattern is non-obstructive. No pneumoperitoneum.There is moderate volume stool burden.Surgical clips inthe right upper quadrant of the abdomen.Impression:Nonobstructive bowel gas pattern.This final report was electronically signed by Dr Silver Benitez MD 18:13 AMDictated By: GLORY BENITEZKDate: 11/21/2020 08:13[facility] ABD[facility]EN/PELVIS W/O CONTRAST 2020-11-14 14:11:31 [facility])Name: LAUREN BETH : 1985 Sex: FProcedure: CT ABDOMEN/PELVIS W/O CONTRASTOrder Date: 11/14/2020 1:22 PMOrdering Provider: BILLY ACOSTA .Clinical Indication: [id number]: Right flank painComparison: Renal ultrasound November 08, [...] MD 12:05 PMDictated By: FARZAD DEWITT.Date: 11/14/2020 14:05[facility] , [id number] 13:31:00 Test Item Value Reference Range Interpretation Comments (Urine) (test code = Negative PREGU) ONLY AVAILABLE 8A-12[facility] LAB CHEM [id number] 11:09:00 Test Item Value Reference Range Interpretation [...] = CREA) 0.5 mg/dl 0.6-1.3 L [facility] LAB URINALYSIS WITHOUT [id number] 11:08:00 Test Item Value Reference Range Interpretation Comments Color (test code = Yellow Lt. Yellow A UCOLR) Clarity (test code = Clear UCLAR) Glucose (test code = Negative Negative N UGLUC) Bilirubin (test code Negative Negative N = UBILI) Ketones (test code = Negative Negative N UKET) Specific [place] 1.025 1.005-1.030 A (test code = USPGR) Blood (test code = Trace-intact Negative A UBLD) PH (test code = UPH) 6.0 4.5-8.0 A Protein (test code = Negative Negative N UPROT) Urobilinogen (test 0.2 See_Comment N [Automat ed message] code = U UROB) The system [facility] generated this result transmit michael reference range : 0.2. The refere nce range was not u sed to interpret th is result as normal/abnormal . Nitrite (test code = Negative Negative N UNITR) Leukocyte Esterase Negative Negative N (test code = ULEUK) [facility] LAB CBC WITH AUTO [id number] 11:05:00 Test Item Value Reference Range Interpretation [...] IG%) 0.4 % 0.0-0.4 [facility] [place]-BarbaraLTLISSY, [id number] 08:43:00Specimen: Urine SpecimensCollected: 11/08/2020 09:59 Status: Final Last Updated: 11/09/2020 08:43 CULTURE (Final) (Final) Few Mixed Body Gabriela Isolated No Pathogens IsolatedFroedtert [facility] [place] & BLADDER (KIDNEYS)2020-11-08 12:00:28[facility])Name: LAUREN BETH : 1985 Sex: FProcedure: US [...] AMDictated By: Maggie BENITEZte: 11/08/2020 11:54[facility]ENTOURINALYSIS WITH MICROSCOPIC 2020-11-08 10:58:00 Test Item Value Reference Range Interpretation Comments Color (test code = Yellow UCOLR) Clarity (test code = Clear UCLAR) Glucose (test code = NEGATIVE NEGATIVE N UGLUC) Bilirubin (test code = NEGATIVE NEGATIVE N UBILI) Ketones (test code = NEGATIVE NEGATIVE N UKET) Specific [place] (test 1.030 1.005-1.030 A code = USPGR) Blood (test code = NEGATIVE NEGATIVE N UBLD) PH (test code = UPH) 6.0 4.5-8.0 A Protein (test code = NEGATIVE NEGATIVE N UPROT) Urobilinogen (test code 0.2 See_Comment N [Au tomated message] = U UROB) The system [employer] generated this result transmitted ref erence range: [...] 51-74 0-10 A (test code = SQEP) [facility] [place] HospitalRebecca, [id number] 08:13:00ER 17Specimen: Urine SpecimensCollected: 11/01/2020 01:10 Status: Final Last Updated: 11/02/2020 08:13 (1) ER 17 CULTURE (Final) (Final) Few Mixed Body Gabriela Isolated No Pathogens IsolatedMayo [facility] [place]-LufkinXR ABD SERIES W/PA CXR 2020-11-01 03:48:37 [facility])Name: LAUREN BETH : 1985 Sex: FPROCEDURE [...] CDT.Dictated By: FILIPPO RAMOSDate: 11/01/2020 03:48[facility]ENTOHEPATIC FUNCTION PANEL (LIVER)2020-11-01 02:14:00 Test Item Value [...] code = 0.1 mg/dl 0.0-1.1 IBIL) ER [address] [place] [address]-[facility] LAB CHEM [id number] 01:57:00 Test Item Value Reference Range Interpretation [...] = CREA) 0.5 mg/dl 0.6-1.3 L ER [address] [place] [address]-LufkinURINALYSIS WITH [id number] 01:56:00 Test Item Value Reference Range Interpretation Comments Color (test code = Light-Yellow UCOLR) Clarity (test code = Clear UCLAR) Glucose (test code = 50 NEGATIVE A UGLUC) Bilirubin (test code NEGATIVE NEGATIVE N = UBILI) Ketones (test code = NEGATIVE NEGATIVE N UKET) Specific [place] 1.025 1.005-1.030 A (test code = USPGR) Blood (test code = NEGATIVE NEGATIVE N UBLD) PH (test code = UPH) 6.0 4.5-8.0 A Protein (test code = TRACE NEGATIVE A UPROT) Urobilinogen (test 0.2 See_Comment N [Automat ed message] code = U UROB) The system [facility] generated this result transmit michael [...] 0-10 A (test code = SQEP) [facility] WITH AUTO [id number] 01:55:00 Test Item Value Reference Range Interpretation [...] (test code = IG%) 0.4 % 0.0-0.4 [address]HEP[address] FUNCTION PANEL (LIVER)2020-10-05 01:26:00 Test Item [...] (test code = 0.1 mg/dl 0.0-1.1 IBIL) [address]ASE2021-04-07 01:26:00 Test Item Value Reference Range Interpretation Comments Lipase (test code = LIPA) 154 U/L 73-[address] LAB CHEM [id number] 01:15:00 Test Item Value Reference Range Interpretation [...] (test code = CREA) 0.6 mg/dl 0.6-1.[address] LAB , [id number] 01:14:00 Test Item Value Reference Range Interpretation Comments (Urine) (test code = Negative PREGU) [address] LAB CBC WITH AUTO [id number] 01:13:00 Test Item Value Reference Range Interpretation [...] IG%) 0.9 % 0.0-0.[address] [place], [place] [address]Kuizjl-[id number] 04:21:00 Test Item Value Reference Range Interpretation Comments Lipase (test code = LIPA) 146 U/L 73-393 [facility] HospitalHEPATIC FUNCTION PANEL (LIVER)2020-09-18 04:21:00 Test Item [...] (test code = 0.1 mg/dl 0.0-1.1 IBIL) [facility]-fkinAMYLASE, [id number] 04:21:00 Test Item Value Reference Range Interpretation Comments Amylase (test code = AMYL) 47 U/L 25-115 [facility]-fkinURINALYSIS WITH [id number] 03:06:00 Test Item Value Reference Range Interpretation Comments Color (test code = Light-Yellow UCOLR) Clarity (test code = Clear UCLAR) Glucose (test code = NEGATIVE NEGATIVE N UGLUC) Bilirubin (test code NEGATIVE NEGATIVE N = UBILI) Ketones (test code = TRACE NEGATIVE A UKET) Specific [place] 1.025 1.005-1.030 A (test code = USPGR) Blood (test code = NEGATIVE NEGATIVE N UBLD) PH (test code = UPH) 5.5 4.5-8.0 A Protein (test code = NEGATIVE NEGATIVE N UPROT) Urobilinogen (test 0.2 See_Comment N [Automat ed message] code = U UROB) The system [employer] generated this result transmit michael reference range [...] SEEN A Epithelial (test code = NSE) [facility] LAB CHEM [id number] 02:51:00 Test Item Value Reference Range Interpretation [...] (test code = CREA) 0.6 mg/dl 0.6-1.3 [facility] LAB CBC WITH AUTO [id number] 02:50:00 Test Item Value Reference Range Interpretation [...] 0.0-0.4 H [facility]-[place]ufkinXR ABDOMEN 1 VIEW (KUB)2020-09-12 01:51:21 [facility])Name: LAUREN BETH : 1985 Sex: FPROCEDURE [...] CDT.Dictated By: CELESTINO ALLENDate: 09/12/2020 01:50[facility] [place] [facility] CBC WITH AUTO [id number] 01:29:00 Test Item Value Reference Range Interpretation [...] code = IG%) 0.4 % 0.0-0.4 [facility] LAB CHEM [id number] 01:28:00 Test Item Value Reference Range Interpretation [...] (test code = CREA) 0.6 mg/dl 0.6-1.3 [facility] HospitalkinURINALYSIS WITH [id number] 03:04:00 Test Item Value Reference Range Interpretation Comments Color (test code = Yellow UCOLR) Clarity (test code = Clear UCLAR) Glucose (test code = 100 NEGATIVE A UGLUC) Bilirubin (test code = NEGATIVE NEGATIVE N UBILI) Ketones (test code = TRACE NEGATIVE A UKET) Specific [place] (test >=1.030 1.005-1.030 A code = USPGR) Blood (test code = NEGATIVE NEGATIVE N UBLD) PH (test code = UPH) 5.5 4.5-8.0 A Protein (test code = NEGATIVE NEGATIVE N UPROT) Urobilinogen (test code 0.2 See_Comment N [Au tomated message] = U UROB) The system [employer] generated this result transmitted ref erence range: [...] code = 3+ None Seen,Trace A UBACT) [facility]-[id number] 03:01:00 Test Item Value Reference Range Interpretation [...] ( 4 - SerumAlbumin)] EGFR if >60 Tanzanian (test code mL/min/1.73m\\ = EGFRAA) S\\2 EGFR if Non- >60 Estimate d Glomerular Tanzanian (test code mL/min/1.73m\\ Filtrat ion Rate (eGFR) [...] c hronic kidney failure. [facility] ClaireKfhqfb-[id number] 03:01:00 Test Item Value Reference Range Interpretation Comments Lipase (test code = LIPA) 145 U/L 73-393 [facility] LAB TEST, Serum Qualitative 2020-08-22 02:48:00 Test Item Value Reference Range Interpretation Comments (Serum) (test code = Negative PREGS) [facility] LAB CBC WITH AUTO [id number] 02:28:00 Test Item Value Reference Range Interpretation [...] code = IG%) 0.5 % 0.0-0.4 H [facility] HospitalHEPATIC FUNCTION PANEL (LIVER)2020-08-06 02:59:00 Test [...] code = 0.1 mg/dl 0.0-1.1 IBIL) ER [address] [place], [place] [address]Declik-[id number] 02:59:00 Test Item Value Reference Range Interpretation Comments Lipase (test code = LIPA) 167 U/L 73-[address] [place] [address]-PlanoURINALYSIS WITH [id number] 02:48:00 Test Item Value Reference Range Interpretation Comments Color (test code = UCOLR) Yellow Clarity (test code = UCLAR) Clear Glucose (test code = UGLUC) NEGATIVE NEGATIVE N Bilirubin (test code = UBILI) NEGATIVE NEGATIVE N Ketones (test code = UKET) NEGATIVE NEGATIVE N Specific [place] (test code = >=1.030 1.005-1.030 A USPGR) [...] code = UBACT) 4+ None Seen,Trace A [address]-[place] ABDOMEN/PELVIS W/O [id number] 02:34:52ER 16 R/O KIDNEY STONE [facility])Name: LAUREN BETH : [id number] Sex: FPROCEDURE INFORMATION:Exam: CT Abdomen And Pelvis [...] CDT.Dictated By: HOLLIS FERRERADate: 08/06/2020 02:34[facility] LAB CHEM 8 2020-08-06 02:29:00 [...] code = CREA) 0.4 mg/dl 0.6-1.[address] LAB CBC WITH AUTO [id number] 02:29:00 Test Item Value Reference Range Interpretation [...] = IG%) 0.7 % 0.0-0.4 H ER [address] [place], [place] [address]Ykcuky-[id number] 09:31:00 Test Item Value Reference Range Interpretation Comments Lipase (test code = LIPA) 117 U/L 73-393 [facility] CenterstefanieHEPATIC FUNCTION PANEL (LIVER)2020-07-19 09:31:00 Test Item Value [...] (test code = 0.3 mg/dl 0.0-1.1 IBIL) [facility] HospitalstefanieXR ABDOMEN 2 VIEWS FLAT / [id number] 09:22:50[facility]/[place])Name: LAUREN BETH : [id number] Sex: FProcedure: XR ABDOMEN 2 VIEWS FLAT / UPRIGHTOrder Date: 07/19/2020 8:40 AMOrdering Provider: REHAN COTTON .Clinical Indication: [id number]: Abdominal painComparison: July 05, 2020Findings:Postoperative change consisting [...] MD :17 AMDictated By: FARZAD DEWITT.Date: 07/19/2020 09:17[facility] LAB CHEM [id number] 09:10:00 Test Item Value Reference Range Interpretation [...] = CREA) 0.5 mg/dl 0.6-1.3 L [facility] LAB CBC WITH AUTO [id number] 09:09:00 Test Item Value Reference Range Interpretation [...] code = IG%) 0.7 % 0.0-0.4 H [facility] LAB URINALYSIS WITHOUT [id number] 09:08:00 Test Item Value Reference Range Interpretation Comments Color (test code = UCOLR) Yellow Lt. Yellow A Clarity (test code = UCLAR) Clear Glucose (test code = UGLUC) Negative Negative N Bilirubin (test code = UBILI) Negative Negative N Ketones (test code = UKET) Negative Negative N Specific [place] (test code = USPGR) >=1.030 1.005-1.030 A Blood (test code = UBLD) Negative Negative N PH (test code = UPH) 6.0 4.5-8.0 A Protein (test code = UPROT) Negative Negative N Urobilinogen (test code = U UROB) 0.2 >0.2 N Nitrite (test code = UNITR) Negative Negative N Leukocyte Esterase (test code = Negative Negative N ULEUK) [facility], [id number] 08:00:00Specimen: Urine SpecimensCollected: 07/05/2020 03:00 Status: Final Last Updated: 07/07/2020 08:00 CULTURE (Final) (Final) No Growth After 48 Hours[facility]-[place]kinXR ABDOMEN 1 VIEW (KUB)2020-07-05 04:07:04 [facility])Name: LAUREN BETH : [id number] Sex: FPROCEDURE INFORMATION:Exam: XR Abdomen, 1 ViewExam [...] CDT.Dictated By: OSKAR CRANEte: 07/05/2020 04:06[facility] LAB , [id number] 03:54:00 Test Item Value Reference Range Interpretation Comments (Urine) (test code = Negative PREGU) [facility]STAT LAB CHEM [id number] 03:53:00 Test Item Value Reference Range Interpretation [...] = CREA) 0.5 mg/dl 0.6-1.3 L [facility] LAB CBC WITH AUTO [id number] 03:51:00 Test Item Value Reference Range Interpretation [...] = IG%) 0.4 % 0.0-0.4 [facility] CenterkinURINALYSIS WITH [id number] 03:33:00 Test Item Value Reference Range Interpretation Comments Color (test code = UCOLR) Yellow Clarity (test code = UCLAR) Clear Glucose (test code = UGLUC) NEGATIVE NEGATIVE N Bilirubin (test code = UBILI) Small NEGATIVE A Ketones (test code = UKET) TRACE NEGATIVE A Specific [place] (test code = USPGR) 1.020 1.005-1.030 A [...] code = UBACT) Trace None Seen,Trace N [facility]-[place]CT ABDOMEN/PELVIS W/[id number] 16:44:35 [facility] ([facility])Name: LAUREN BETH : [id number] Sex: FProcedure: CT ABDOMEN/PELVIS W/CONTRASTOrder date: 06/07/2020 3:47 PMOrdering Provider: REHAN Farrellinical Indication: [id number]: Left flank painComparison: 06/07/20Technique: Multiple axial helical [...] PMDictated By: WILEY VELÁZQUEZDate: 06/07/2020 16:38[facility]INAL[facility]IS WITH [id number] 15:22:00 Test Item Value Reference Range Interpretation Comments Color (test code = UCOLR) Yellow Clarity (test code = UCLAR) Clear Glucose (test code = UGLUC) NEGATIVE NEGATIVE N Bilirubin (test code = UBILI) NEGATIVE NEGATIVE N Ketones (test code = UKET) NEGATIVE NEGATIVE N Specific [place] (test code = USPGR) 1.020 1.005-1.030 A [...] = UBACT) Trace None Seen,Trace N [facility] LAB CHEM [id number] 15:10:00 Test Item Value Reference Range Interpretation [...] = CREA) 0.4 mg/dl 0.6-1.3 L [facility] LAB CBC WITH AUTO [id number] 15:08:00 Test Item Value Reference Range Interpretation [...] 0.0-0.4 H [facility]-[place]CT ABD/ PELVIS W/O CON (RENAL STONE)2020-06-07 14:56:05[facility]Name: LAUREN BETH : [id number] Sex: FProcedure: CT ABD/ PELVIS W/O CON (RENAL STONE)Order date: 06/07/2020 2:18 PMOrdering Provider: REHAN Farrellinical Indication: [id number]: Left flank painComparison: 05/31/20TECHNIQUE: Using a helical [...] 06/07/20202:49PMDictated By: WILEY VELÁZQUEZDate: 06/07/2020 14:49[facility]/PELVIS W/O [id number] 12:27:07NPO 4 hours. Do not withhold meds hyst [facility])Name: LAUREN BETH : [id number] Sex: FProcedure: CT ABDOMEN/PELVIS W/O CONTRASTOrder Date: 05/31/2020 10:25 AMOrdering Provider: ME ANN MARIE MCBRIDEClinical Indication: [id number]: Pain radiating to right flankComparison: March 20, [...] 05/31/202012:20 PMDictated By: FARZAD DEWITTDate: 05/31/2020 12:20[facility] [id number] 11:48:00 Test Item Value Reference Range Interpretation Comments Lipase (test code = LIPA) 116 U/L 73-393 [facility] LAB URINALYSIS WITHOUT [id number] 10:59:00 Test Item Value Reference Range Interpretation Comments Color (test code = UCOLR) Light yellow Lt. Yellow A Clarity (test code = UCLAR) Clear Glucose (test code = UGLUC) Negative Negative N Bilirubin (test code = UBILI) Negative Negative N Ketones (test code = UKET) Negative Negative N Specific [place] (test code = 1.025 1.005-1.030 A USPGR) Blood (test code = UBLD) Negative Negative N PH (test code = UPH) 6.0 4.5-8.0 A Protein (test code = UPROT) Negative Negative N Urobilinogen (test code = U 0.2 >0.2 N UROB) Nitrite (test code = UNITR) Negative Negative N Leukocyte Esterase (test code = Negative Negative N ULEUK) [facility] LAB CBC WITH AUTO [id number] 10:58:00 Test Item Value Reference Range Interpretation [...] = IG%) 0.5 % 0.0-0.4 H [facility] LAB CHEM [id number] 10:53:00 Test Item Value Reference Range Interpretation [...] 0.6-1.3 L [facility]XR ABDOMEN 1 VIEW (KUB)2020-04-25 21:02:16 [facility] ([facility]/[place])Name: LAUREN BETH : [id number] Sex: FPROCEDURE INFORMATION:Exam: XR Abdomen, 1 ViewExam [...] PM CDT .Dictated By: TEJAS RODRIGUEZDate: 04/25/2020 21:02[facility]INAB[facility] WITH [id number] 18:57:00 Test Item Value Reference Range Interpretation Comments Color (test code = UCOLR) Yellow Lt. Yellow A Clarity (test code = UCLAR) Clear Glucose (test code = UGLUC) Negative Negative N Bilirubin (test code = UBILI) Negative Negative N Ketones (test code = UKET) Negative Negative N Specific [place] (test code = 1.020 1.005-1.030 A USPGR) [...] code = UBACT) 4+ None Seen,Trace A [facility] LAB CBC WITH AUTO [id number] 18:55:00 Test Item Value Reference Range Interpretation [...] of Platel et clumping was entered by [id number] on 04/25/2020 18:5 5 [facility] LAB CHEM [id number] 18:17:00 Test Item Value Reference Range Interpretation [...] code = CREA) 0.4 mg/dl 0.6-1.3 L [facility], ANAEROBE [id number] 15:20:00FIRST DRAW = 1 aerobic and 1 anerobic CultureSpecimen: BloodCollected: 03/20/2020 18:30 Status: Final Last Updated: 03/26/2020 15:19 (1) FIRST DRAW = 1 aerobic and 1 anerobic Culture CULTURE (Final) (Final) No Growth After 5 DaysBellin [facility]'S [facility] HospitalCULTURE, [id number] 15:20:00FIRST DRAW = 1 aerobic and 1 anerobic CultureSpecimen: BloodCollected: 03/20/2020 18:30 Status: Final Last Updated: 03/26/2020 15:19 (1) FIRST DRAW = 1 aerobic and 1 anerobic Culture CULTURE (Final) (Final) No Growth After 5 Days[facility]-[place]kinCT ABDOMEN/PELVIS W/[id number] 21:46:442 weeks s/p adhesolysis. Vomiting/pain/fever. Please do CT with PO and IV contrastProcedures: CT ABDOMEN/PELVIS W/CONTRASTExam Date: 03/20/2020 6:04 PMOrdering Physician: REHAN Farrellinical Indication: [id number]: Abdominal painComparison: CT abdomen/pelvis, 02/25/20TECHNIQUE: Spiral multislice [...] 9:40 PMDictated By: ELMER PHAMDate:03/20/2020 21:40[facility] TEXASHEPATIC FUNCTION PANEL (LIVER)2020-03-20 19:24:00 Test Item Value [...] (test code = 0.3 mg/dl 0.0-1.1 IBIL) [facility] ClaireWpnsfc-[id number] 19:24:00 Test Item Value Reference Range Interpretation Comments Lipase (test code = LIPA) 69 U/L 73-393 L [facility] ClaireLljhun-[id number] 19:24:00 Test Item Value Reference Range Interpretation Comments Magnesium (test code = MG) 2.0 mg/dl 1.6-2.6 [facility] LAB CHEM [id number] 18:43:00 Test Item Value Reference Range Interpretation [...] = CREA) 0.5 mg/dl 0.6-1.3 L [facility] LAB LACTIC [id number] 18:42:00 Test Item Value Reference Range Interpretation Comments LACTATE (test code = 2.50 mmol/l 0.90-1.70 HH R&RB sy rene hassan rn LAC) @1842 [facility] LAB CBC WITH AUTO [id number] 18:41:00 Test Item Value Reference Range Interpretation [...] (test code = IG%) 0.4 % 0.0-0.4 [facility] PLMNT MIDLINE NO PORT > [...] secured to the skin in the usual fashion.Center Receptionist images were recorded and stored in the [facility] fordocumentation. The patient tolerated the procedure well and there were noimmediate complications.Impression:1. Successful upper extremity vascular access.This final report was electronically signed by Dr Farzad Dewitt MD 03/15/20201:14 PMDictated By: FARZAD DEWITT.Date: 03/15/2020 13:14[facility] ([facility]SE)2020-03-13 21:03:00 Test Item Value Reference Range Interpretation Comments FT (test code Negative Negative N The BioGX SARS -CoV-2 = COVID) (qualifier value) Reagents f or BD MAX System, the Bio Fire Covid-19, and t he Cepheid Covid-1 9 is for in vitro us e under FDA Emergency U se Authorization o nly. Indeterminate r esults recommend recol lection of specimen. [facility]kinXR ABD SERIES W/PA [id number] 17:33:07 Procedure: XR ABD SERIES W/PA CXROrder [...] PMDictated By: GLORY BENITEZKDate: 03/13/2020 17:26[facility] CBC WITH AUTO [id number] 17:23:00 Test Item Value Reference Range Interpretation [...] on 03/13/2020 17:23 [facility] HospitalLIPASE2020-09-13 17:23:00 Test Item Value Reference Range Interpretation Comments Lipase (test code = LIPA) 61 U/L 73-393 L [facility] HospitalHEPATIC FUNCTION PANEL (LIVER)2020-03-13 17:23:00 Test [...] (test code = 0.4 mg/dl 0.0-1.1 IBIL) [facility] CenterfkinURINALYSIS WITH [id number] 16:54:00 Test Item Value Reference Range Interpretation Comments Color (test code = UCOLR) Yellow Lt. Yellow A Clarity (test code = UCLAR) Clear Glucose (test code = UGLUC) Negative Negative N Bilirubin (test code = UBILI) Negative Negative N Ketones (test code = UKET) Negative Negative N Specific [place] (test code = >=1.030 1.005-1.030 A USPGR) [...] code = UBACT) 4+ None Seen,Trace A [facility] LAB CHEM [id number] 16:37:00 Test Item Value Reference Range Interpretation [...] code = CREA) 0.4 mg/dl 0.6-1.3 L [facility]-LufkinSP PERC PLMNT MIDLINE NO PORT > 5 [...] PMDictated By: GLORY BENITEZKDate: 03/02/2020 12:17[facility] (IN [facility]SE)2020-03-01 18:48:00 Test Item Value Reference Range Interpretation Comments FT (test code Negative Negative N The BioGX SARS -CoV-2 = COVID) (qualifier value) Reagents f or BD MAX System, the Bio Fire Covid-19, and t he Cepheid Covid-1 9 is for in vitro us e under FDA Emergency U se Authorization o nly. Indeterminate r esults recommend recol lection of specimen. [facility]-LufkinPT AND [id number] 11:51:00 Test Item Value Reference Range Interpretation Comments Protime (test code 9.8 seconds 9.5-12.1 = PT) INR (test code = 0.9 0.9-1.1 INR results are intended INR) ONLY to monitor Oral Anticoagulant t herapy in stablized patie nts. The INR Therapeutic Range is 2.0 - 3.0 Patie nts with a mechanical he art, the INR Range is 2. 5 - 3.5 [facility]-[id number] 11:51:00 Test Item Value Reference Range Interpretation Comments aPTT (test code = PTT) 27.4 seconds 23.9-30.7 [facility] HospitalkinCBC (HEMOGRAM ONLY)2020-03-01 11:44:00 Test Item Value Reference [...] WILL BE NOTED ON THE RE PORT. [facility]-LufkinCULTURE, [id number] 08:08:00Specimen: Urine RandomCollected: 02/25/2020 11:27 Status: Final Last Updated: 02/27/2020 08:08 CULTURE (Final) (Final) No Growth After 48 HoursBell[facility] [id number] 05:38:00 Test Item Value Reference Range Interpretation [...] 0.5-1.3 code = CREA) EGFR if >60 Tanzanian (test code mL/min/1.73m\\ = EGFRAA) S\\2 EGFR if Non- >60 Estimate d Glomerular Tanzanian (test code mL/min/1.73m\\ Filtrat ion Rate (eGFR) [...] of c hronic kidney failure. [facility] CenterkinTS (Ultra Sensitive)2020-02-26 05:38:00 Test Item Value Reference Range Interpretation Comments TSH (test code = TSH) 0.04 mIU/L 0.35-3.74 L [facility] HospitalCB WITH AUTO [id number] 05:18:00 Test Item Value Reference Range Interpretation [...] 0.5 % 0.0-0.4 H IG%) CBC AUTO diffMeGrant Regional Health Center-LufkinCORONAVIRUS 2019 (IN HOUSE)2020-02-25 14:06:00 Test Item [...] r esults recommend recol lection of specimen. [facility]-LufkinURINALYSIS WITH [id number] 12:56:00 Test Item Value Reference Range Interpretation Comments Color (test code = UCOLR) Yellow Lt. Yellow A Clarity (test code = UCLAR) Slightly Cloudy Glucose (test code = UGLUC) Negative Negative N Bilirubin (test code = UBILI) Negative Negative N Ketones (test code = UKET) Negative Negative N Specific [place] (test code = >=1.030 1.005-1.030 A USPGR) [...] code = UBACT) Trace None Seen,Trace N [facility] HospitalLIPASE2020-08-27 12:52:00 Test Item Value Reference Range Interpretation Comments Lipase (test code = LIPA) 90 U/L 73-393 [facility] HospitalHEPATIC FUNCTION PANEL (LIVER)2020-02-25 12:52:00 Test [...] (test code = 0.3 mg/dl 0.0-1.1 IBIL) [facility] HospitalkinCT ABDOMEN/PELVIS W/[id number] 12:42:41NPO 4 hours. Do not withhold medsProcedure: [...] PMDictated By: WILEY VELÁZQUEZDate: 02/25/2020 12:36[facility] CHEM 8 2020-02-25 12:07:00 Test Item [...] = CREA) 0.5 mg/dl 0.6-1.3 L [facility] LAB CBC WITH AUTO [id number] 12:05:00 Test Item Value Reference Range Interpretation [...] code = IG%) 0.3 % 0.0-0.4 [facility] LAB CBC WITH AUTO [id number] 03:15:00 Test Item Value Reference Range Interpretation [...] = IG%) 0.6 % 0.0-0.4 H [facility] LAB CHEM [id number] 02:55:00 Test Item Value Reference Range Interpretation [...] code = CREA) 0.5 mg/dl 0.6-1.3 L [facility] ABDOMEN 1 VIEW (KUB)2020-02-25 02:45:30 PROCEDURE INFORMATION:Exam: [...] By: JORGE LUIS WHITEDate: 02/25/2020 02:45[facility] , URINE 2020-02-25 01:12:00 Test Item Value Reference Range Interpretation Comments (Urine) (test code = Negative PREGU) [facility] HospitalkinSTA LAB URINALYSIS WITHOUT [id number] 01:11:00 Test Item Value Reference Range Interpretation Comments Color (test code = UCOLR) Yellow Lt. Yellow A Clarity (test code = UCLAR) Clear Glucose (test code = UGLUC) Negative Negative N Bilirubin (test code = UBILI) Negative Negative N Ketones (test code = UKET) Negative Negative N Specific [place] (test code = USPGR) >=1.030 1.005-1.030 A Blood (test code = UBLD) Negative Negative N PH (test code = UPH) 5.5 4.5-8.0 A Protein (test code = UPROT) Negative Negative N Urobilinogen (test code = U UROB) 0.2 >0.2 N Nitrite (test code = UNITR) Negative Negative N Leukocyte Esterase (test code = Negative Negative N ULEUK) [facility]kinXR ABDOMEN 1 VIEW (KUB)2020-02-10 06:46:05 Procedure: XR ABDOMEN 1 VIEW (KUB)Order date: 02/10/2020 4:01 AMOrdering Provider: JUAN MENSAHClinical Indication: Abdominal painComparison: NoneFindings:There is no small or large bowel distention.There is no pneumoperitoneum.There are no suspicious calcifications.There is no skeletal abnormality.Impression:1. Negative single view abdomen.This final report was electronically signed by Dr Wiley Velázquez MD 02/10/20206:39 AMDictated By: WILEY VELÁZQUEZDate: 02/10/2020 06:39[facility] RENAL & BLADDER (KIDNEYS)2020-02-10 05:31:33PROCEDURE INFORMATION:Exam: [...] By: JORGE LUIS WHITEDate: 02/10/2020 05:31[facility]ENTOURINALYSIS WITH [id number] 05:10:00 Test Item Value Reference Range Interpretation Comments Color (test code = UCOLR) Yellow Lt. Yellow A Clarity (test code = UCLAR) Clear Glucose (test code = UGLUC) >=1000 Negative A Bilirubin (test code = UBILI) Negative Negative N Ketones (test code = UKET) Negative Negative N Specific [place] (test code = 1.015 1.005-1.030 A USPGR) [...] = UBACT) None Seen None Seen,Trace N [facility] ClaireHkgeub-[id number] 04:42:00 Test Item Value Reference Range Interpretation Comments Lipase (test code = LIPA) 91 U/L 73-393 [facility] HospitalHEPATIC FUNCTION PANEL (LIVER)2020-02-10 04:42:00 Test [...] (test code = 0.2 mg/dl 0.0-1.1 IBIL) [facility] LAB CHEM [id number] 04:27:00 Test Item Value Reference Range Interpretation [...] (test code = CREA) 0.6 mg/dl 0.6-1.3 [facility] , [id number] 04:24:00 Test Item Value Reference Range Interpretation Comments (Urine) (test code = Negative PREGU) [facility] LAB CBC WITH AUTO [id number] 04:22:00 Test Item Value Reference Range Interpretation [...] 0.0-0.4 H [facility]-LufkinCT L SPINE W/O [id number] 12:46:24 Procedure: CT L SPINE W/O CONTRASTOrder date: 01/25/2020 11:46 AMOrdering Provider: DONALD Healyinical Indication: [id number]: Low back painComparison: NoneTechnique: Using a multislice [...] MD 01/25/202012:39 PMDictated By: WILEY VELÁZQUEZDate: 01/25/2020 12:39[facility] SACRAMENTOHEPATIC FUNCTION PANEL (LIVER)2019-12-09 05:49:00 Test Item Value [...] (test code = 0.3 mg/dl 0.0-1.1 IBIL) [address]-[id number] 05:49:00 Test Item Value Reference Range Interpretation Comments Lipase (test code = LIPA) 105 U/L 73-[address] LAB CHEM [id number] 05:06:00 Test Item Value Reference Range Interpretation [...] code = CREA) 0.5 mg/dl 0.6-1.[address] LAB CBC WITH AUTO [id number] 05:04:00 Test Item Value Reference Range Interpretation [...] code = IG%) 0.4 % 0.0-0.[address]-[id number] 02:23:00 Test Item Value Reference Range Interpretation [...] ( 4 - SerumAlbumin)] EGFR if >60 [place] (test code mL/min/1.73m\\ = EGFRAA) S\\2 EGFR if Non- >60 Estimate d Glomerular Tanzanian (test code mL/min/1.73m\\ Filtrat ion Rate (eGFR) [...] c hronic kidney failure. [facility]URINALYS[facility] WITH [id number] 02:11:00 Test Item Value Reference Range Interpretation Comments Color (test code = UCOLR) Yellow Lt. Yellow A Clarity (test code = UCLAR) Clear Glucose (test code = UGLUC) Negative Negative N Bilirubin (test code = UBILI) Negative Negative N Ketones (test code = UKET) Trace Negative A Specific [place] (test code = USPGR) >=1.030 1.005-1.030 A [...] code = UBACT) 2+ None Seen,Trace A [facility] LAB CBC WITH AUTO [id number] 02:03:00 Test Item Value Reference Range Interpretation [...] IG%) 0.4 % 0.0-0.4 [facility]CT ABDOMEN/PELVIS W/[id number] 22:43:00NPO 4 hours. Do not withhold meds [...] 0.5-1.3 code = CREA) EGFR if >60 Tanzanian (test code mL/min/1.73m\\ = EGFRAA) S\\2 EGFR if Non- >60 Estimate d Glomerular [place]anian (test code mL/min/1.73m\\ Filtrat ion Rate (eGFR) [...] c hronic kidney failure. [facility]-LufkinAMYLASE, [id number] 22:05:00 Test Item Value Reference Range Interpretation Comments Amylase (test code = AMYL) 43 U/L 25-115 [facility] ClaireYgvsoi-[id number] 22:05:00 Test Item Value Reference Range Interpretation Comments Lipase (test code = LIPA) 95 U/L 73-393 [facility]-[place]kinURINALYSIS WITH [id number] 21:49:00 Test Item Value Reference Range Interpretation Comments Color (test code = UCOLR) Yellow Lt. Yellow A Clarity (test code = UCLAR) Clear Glucose (test code = UGLUC) Negative Negative N Bilirubin (test code = UBILI) Negative Negative N Ketones (test code = UKET) 15 Negative A Specific [place] (test code = USPGR) >=1.030 1.005-1.030 A [...] code = UBACT) 3+ None Seen,Trace A [facility] LAB CBC WITH AUTO [id number] 21:45:00 Test Item Value Reference Range Interpretation [...] code = IG%) 0.4 % 0.0-0.4 [facility] LAB , [id number] 21:36:00 Test Item Value Reference Range Interpretation Comments (Urine) (test code = Negative PREGU) [facility]CT ABDOMEN/PELVIS W/O [id number] 03:56:36 PROCEDURE INFORMATION:Exam: CT Abdomen And Pelvis [...] AM CDT.Dictated By: AMY ORDOÑEZDate: 09/20/2019 03:56 [id number] 02:07:00 Test Item Value Reference Range Interpretation [...] ( 4 - SerumAlbumin)] EGFR if >60 [place] (test code mL/min/1.73m\\ = EGFRAA) S\\2 EGFR if Non- >60 Estimate d Glomerular Tanzanian (test code mL/min/1.73m\\ Filtrat ion Rate (eGFR) [...] c hronic kidney failure. [facility]ufkinXR ABDOMEN 2 VIEWS FLAT / [id number] 02:01:15PROCEDURE INFORMATION:Exam: XR Abdomen, 2 ViewsExam date [...] CDT.Dictated By: AMY ORDOÑEZDate: 09/20/2019 02:01MM OF SACRAMENTOURINALYSIS WITH MICROSCOPIC 2019-09-20 01:56:00 Test Item Value Reference Range Interpretation Comments Color (test code = UCOLR) Yellow Lt. Yellow A Clarity (test code = UCLAR) Clear Glucose (test code = UGLUC) >=1000 Negative A Bilirubin (test code = UBILI) Negative Negative N Ketones (test code = UKET) Trace Negative A Specific [place] (test code = USPGR) >=1.030 1.005-1.030 A [...] code = UBACT) 2+ None Seen,Trace A [facility] LAB CBC WITH AUTO [id number] 01:38:00 Test Item Value Reference Range Interpretation [...] 0.0-0.4 H [facility]/PELVIS W/[id number] 04:23:30 PROCEDURE INFORMATION:Exam: CT Abdomen And Pelvis [...] CDT.Dictated By: SETH MEDINADate: 08/17/2019 04:23[facility] OF [id number] 03:34:00 Test Item Value Reference Range Interpretation Comments Lipase (test code = LIPA) 67 U/L 73-393 L [facility]-[id number] 03:34:00 Test Item Value Reference Range Interpretation [...] ( 4 - SerumAlbumin)] EGFR if >60 [place] (test code mL/min/1.73m\\ = EGFRAA) S\\2 EGFR if Non- >60 Estimate d Glomerular Tanzanian (test code mL/min/1.73m\\ Filtrat ion Rate (eGFR) [...] c hronic kidney failure. [facility] LAB CBC WITH AUTO [id number] 03:19:00 Test Item Value Reference Range Interpretation [...] code = IG%) 0.7 % 0.0-0.4 H [facility]-fkinURINALYSIS WITH [id number] 03:10:00 Test Item Value Reference Range Interpretation Comments Color (test code = UCOLR) YELLOW Clarity (test code = UCLAR) CLEAR Glucose (test code = UGLUC) NEGATIVE NEGATIVE N Bilirubin (test code = UBILI) NEGATIVE NEGATIVE N Ketones (test code = UKET) NEGATIVE NEGATIVE N Specific [place] (test code = 1.025 1.005-1.030 A USPGR) [...] = UBACT) 1+ None Seen,Trace A [facility] , [id number] 03:03:00 Test Item Value Reference Range Interpretation Comments (Urine) (test code = Negative PREGU) ONLY AVAILABLE 8A-12MNMay[facility]-LufkinED2 [id number] 20:37:00 Test Item Value Reference Range Interpretation [...] (test code = CREA) 0.6 mg/dl 0.6-1.2 [facility]ufkinED2 [id number] 20:28:00 Test Item Value Reference Range Interpretation [...] code = MPV) 7.1 fL 8.0-11.0 A [facility] CenterfkinCULTURE, [id number] 08:44:03kop5Rnfawqcl: Urine SpecimensCollected: 07/12/2019 15:00 Status: Final Last Updated: 2019 08:44 (1) err7 Culture Result (Final) (Final) Moderate Mixed Body Gabriela Isolated No Pathogens Isolated No Further Workup PerformedMay[facility] HospitalkinFL LIMITED [id number] 17:53:41Procedures: FL LIMITED IVPExam Date: 07/12/2019 3:21 PMOrdering Physician: REHAN Farrellinical Indication: [id number]: Flank painComparison: CT abdomen/pelvis, 05/17/19Findings: Frontal radiographs [...] PMDictated By: ELMER PHAMDate: 07/12/2019 17:47[facility] OF [id number] 15:56:00 Test Item Value Reference Range Interpretation Comments Lipase (test code = LIPA) 97 U/L 73-393 [address]AT[address] FUNCTION PANEL (LIVER)2019-07-12 15:56:00 Test Item [...] (test code = 0.2 mg/dl 0.0-1.1 IBIL) [facility]kinURINALYSIS WITH [id number] 15:51:00 Test Item Value Reference Range Interpretation Comments Color (test code = UCOLR) YELLOW Clarity (test code = UCLAR) CLEAR Glucose (test code = UGLUC) NEGATIVE NEGATIVE N Bilirubin (test code = UBILI) NEGATIVE NEGATIVE N Ketones (test code = UKET) NEGATIVE NEGATIVE N Specific [place] (test code = 1.020 1.005-1.030 A USPGR) [...] code = UBACT) 4+ None Seen,Trace A [address] LAB CHEM [id number] 15:09:00 Test Item Value Reference Range Interpretation [...] (test code = CREA) 0.6 mg/dl 0.6-1.[address] LAB CBC WITH AUTO [id number] 15:08:00 Test Item Value Reference Range Interpretation [...] (test code = IG%) 0.4 % 0.0-0.[address]-LufkinCT ABDOMEN/PELVIS W/[id number] 16:33:46NPO 4 hours. Do not withhold medsProcedures: CT ABDOMEN/PELVIS W/CONTRASTExam Date: 05/17/2019 1:31 PMOrdering Physician: MERLE LYNNEClinical Indication: [id number]: Abdominal painComparison: CT abdomen/pelvis, 04/09/19TECHNIQUE: Spiral multislice [...] of the visualized cardiac or mediastinalstructures.UPPER ABDOMEN:Liver: Normal.Gallbladder:Absent. Surgical clips within gallbladder fossa.Pancreas: Normal.Spleen: Normal.Adrenals: Normal.URINARY:Kidneys: Normal symmetric cortical enhancement. No hydronephrosis ornephrolithiasis.Ureters: Theureters are of normal course and caliber.Urinary bladder: [...] MD05/17/2019 4:27 PMDictated By: ELMER PHAMDate: 05/17/2019 16:27[facility] [id number] 16:20:00 Test Item Value Reference Range Interpretation Comments Lipase (test code = LIPA) 70 U/L 73-393 L [facility] LAB CHEM [id number] 15:24:00 Test Item Value Reference Range Interpretation [...] = CREA) 0.5 mg/dl 0.6-1.3 L [facility] LAB LACTIC [id number] 15:23:00 Test Item Value Reference Range Interpretation Comments LACTATE (test code = LAC) 1.39 mmol/l 0.90-1.70 [facility] LAB CBC WITH AUTO [id number] 15:21:00 Test Item Value Reference Range Interpretation [...] 0.0-0.4 H [facility] HospitalkinURINALYSIS WITH [id number] 15:08:00 Test Item Value Reference Range Interpretation Comments Color (test code = UCOLR) YELLOW Clarity (test code = UCLAR) CLEAR Glucose (test code = UGLUC) NEGATIVE NEGATIVE N Bilirubin (test code = UBILI) NEGATIVE NEGATIVE N Ketones (test code = UKET) NEGATIVE NEGATIVE N Specific [place] (test code = 1.025 1.005-1.030 A USPGR) [...] code = UBACT) 2+ None Seen,Trace A [facility] medical centerCT ANGIO HEAD W/WO [id number] 16:28:5720 g Cathlon Above the Antecubital or higher requiredProcedure: CT ANGIO HEAD W/WO CONTRASTOrder Date: 05/12/2019 3:30 PMOrdering Provider: REHAN VANG SA NDERSClinical Indication: [id number]: HeadacheComparison: NoneTechnique: Using a helical scanner, sequential axial imaging of the brain wasobtained before and after the administration of the contrast medium. At anindependent workstation, 3-D reconstructions of the [place] wereobtained.This examwas performed according to [...] MD 05/12/20194:22 PMDictated By: FARZAD DEWITTDate: 05/12/2019 16:22[facility]CT [facility]/PELVIS W/[id number] 14:36:05NPO 4 hours. Do not withhold medsProcedure: CT ABDOMEN/PELVIS W/CONTRASTOrder Date: 04/09/2019 8:00 AMOrdering Provider: LIZBETH OLPEZlinical Indication: R09.89: OTHER SPECIFIED SYMPTOMS AND SIGNS [...] PMDictated By: GLORY BENITEZKDate: 04/09/2019 14:29[facility] WITH AUTO [id number] 09:02:00 Test Item Value Reference Range Interpretation [...] code = 0.5 % 0.0-0.4 H IG%) [facility]LufkinBAP[facility]CA[facility] WITH AUTO [id number] 09:14:00 Test Item Value Reference Range Interpretation [...] (test code = 0.4 % 0.0-0.4 IG%) [facility]-[id number] 09:12:00 Test Item Value Reference Range Interpretation [...] 0.5-1.3 code = CREA) EGFR if >60 Tanzanian (test code mL/min/1.73m\\ = EGFRAA) S\\2 EGFR if Non- >60 Estimate d Glomerular Tanzanian (test code mL/min/1.73m\\ Filtrat ion Rate (eGFR) [...] c hronic kidney failure. [facility]-LufkinSP PERC PLMNT MIDLINE NO PORT > 5 [...] MD 04/07/20194:05 PMDictated By: WILEY VELÁZQUEZDate: 04/07/2019 16:05[facility]CT [facility]/PELVIS W/[id number] 22:50:40PROCEDURE INFORMATION:Exam: CT Abdomen and pelvis with [...] does not appear significantlychanged from comparison CT 4/2/19. Postsurgical changes of the anteriorabdominal wall.IMPRESSION:1. No acute CT abnormalities are demonstrated to clearly explain the patient'paige complaint.2. Mild diffuse bowel wall thickening may represent colitis.3. Hepatic steatosis.This Final report was electronically signed by Elmer Juárez MD on 10:50 PM CDT.Dictated By: ELMER PHAMDate: 04/04/2019 22:50[facility] OF [id number] 21:22:00 Test Item Value Reference Range Interpretation Comments Lipase (test code = LIPA) 89 U/L 73-393 [facility] HospitalHEP[facility] FUNCTION PANEL (LIVER)2019-04-04 21:22:00 Test [...] code = 0.3 mg/dl 0.0-1.1 IBIL) [facility] LAB CHEM [id number] 21:07:00 Test Item Value Reference Range Interpretation [...] (test code = CREA) 0.6 mg/dl 0.6-1.3 [facility] LAB URINALYSIS WITHOUT [id number] 21:05:00 Test Item Value Reference Range Interpretation Comments Color (test code = UCOLR) Yellow Lt. Yellow A Clarity (test code = UCLAR) Slightly Cloudy Glucose (test code = UGLUC) 100 Negative A Bilirubin (test code = UBILI) Negative Negative N Ketones (test code = UKET) Negative Negative N Specific [place] (test code = >=1.030 1.005-1.030 A USPGR) Blood (test code = UBLD) Negative Negative N PH (test code = UPH) 5.5 4.5-8.0 A Protein (test code = UPROT) Negative Negative N Urobilinogen (test code = U 0.2 >0.2 N UROB) Nitrite (test code = UNITR) Negative Negative N Leukocyte Esterase (test code Negative Negative N = ULEUK) [facility] LAB CBC WITH AUTO [id number] 21:04:00 Test Item Value Reference Range Interpretation [...] = IG%) 0.5 % 0.0-0.4 H [facility] LAB , [id number] 21:04:00 Test Item Value Reference Range Interpretation Comments (Urine) (test code = Negative PREGU) ONLY AVAILABLE 8A-12[facility]-LufkinED2 [id number] 16:05:00 Test Item Value Reference Range Interpretation Comments Sodium (test code = CANCELED mmol/l The r eleased value NA) 141 was cancele d by [id number] on 04/04/2019 16:0 5 Potassium (test code CANCELED mmol/l The released value = K) 3.9 was cancele d by [id number] on 04/04/2019 16:0 5 CO2 (test code = CANCELED mmol/l The rele ased value CO2) 23 was canceled by [id number] on 04/04/2019 16:0 5 Chloride (test code CANCELED mmol/l The r eleased value = CL) 108 was cancele d by [id number] on 04/04/2019 16:0 5 Glucose (test code = CANCELED mg/dl The r eleased value GLU) 96 was canceled by [id number] on 04/04/2019 16:0 5 Calcium (test code = CANCELED mg/dl The r eleased value CALC) 8.8 was cancele d by [id number] on 04/04/2019 16:0 5 BUN (test code = CANCELED mg/dl The relea sed value BUN) 11 was canceled by [id number] on 04/04/2019 16:0 5 Creatinine (test CANCELED mg/dl code = CREA) [facility] HospitalHISTOLOGY [id number] 11:08:[address] [place] [address]Krzse: [phone] DWVM #: [id number] MedicalDirector: Seth Valdez M.D.Surgical Pathology Consultation ReportPatient Name: LAUREN BETH Case #: [id number] Med. Rec. #:[id number] Location: [id number] Surgery Date: 03/21/2019 : 1985(Age:33) Received: 03/23/2019 [...] greatest dimension. The cystsarefilled with clearserous fluid. Center Receptionist sections of the ovaryandpossible fallopian tube are submitted in cassettes A1-A8. /03/23/2019 Seth Valdez MD, Board Certified in Anatomic Pathology Microscopic DescriptionMicroscopic examination of the right ovary reveals fibrovascularadhesionsalong the surface of the ovary as well as along the accompanyingfallopiantube. The ovarian parenchyma contains follicular cysts, benign serouscyst,as well as numerous corpus albicans. No areas of endometriosis areseen. Billing Fee Code(s): A; [address]115AujofooeMay[facility]-[place]- US TRANSVAGINAL W/[id number] 16:45:00 Patient Name: ADELIA BETH Unit No: [id number] EXAMS: CPT CODE: [id number] US TRANSVAGINAL W/PELVIS 63547 CLINICAL HISTORY: Right lower quadrant pain. Status [...] is identified in the right ovary. at 4250 Reported and signed by: Mario Guidry MD CC: Hilaria Calderón MD Technologist: Dipesh Miranda RDMS, T Probe: [id number] Trnscrbd D/ (5248) t.YOS Orig Print D/T: S: 03/10/2019 (4642) [facility] NAME: ADELIA BETH Radiology Department PHYS: NIGEL - Hilaria Calderón [address] : 1985 AGE: 33 SEX: F [place] [address] LOC: ALONDRA PHONE #: [phone] EXAM DATE: 03/10/2019 STATUS: REG ER FAX #: [phone] RAD NO: Page 1 Signed Report Patient Name: ADELIA BETH Unit No: [id number] EXAMS: CPT CODE: [id number] US TRANSVAGINAL W/PELVIS 72922 <Continued> [facility] NAME: ADELIA BETH Radiology Department PHYS: NIGEL - Hilaria Calderón [address] : 1985 AGE: 33 SEX: F [place] [address] LOC: ALONDRA PHONE #: [phone] EXAM DATE: 03/10/2019 STATUS: REG ER FAX #: [phone] RAD NO: Page 2 Signed Report- US TRANSVAGINAL W/PELVIS 2019-03-10 16:45:00 Patient Name: LAUREN BETH Unit No: [id number] EXAMS: CPT CODE: [id number] US TRANSVAGINAL W/PELVIS 04295 CLINICAL HISTORY: Right lower quadrant pain. Status [...] MD Technologist: Dipesh Miranda RDMS, RVT Probe: [id number] Trnscrbd D/ (7215) Ro Orig Print D/T: S: 03/10/2019 (8591) [facility]: LAUREN BETH Radiology Department PHYS: Hilaria Maldonado [address] : 1985 AGE: 33 SEX: F [place], [place] [address] LOC: ALONDRA PHONE #: [phone] EXAM DATE: 03/10/2019 STATUS: DEP ER FAX #: [phone] RAD NO: [id number] Page 1 Signed Report Patient Name: LAUREN BETH Unit No: [id number] EXAMS: CPT CODE: [id number] US TRANSVAGINAL W/PELVIS 09122 (Continued) [facility] NAME: LAUREN BETH Radiology Department PHYS: - Hilaria Calderón [address] : 1985 AGE: 33 SEX: F [place], [place] [address] LOC: DayanaraERS PHONE #: [phone] EXAM DATE: 03/10/2019 STATUS: DEP ER FAX #: [phone] RAD NO: [id number] Page 2 Signed Report- US PELVIS [id number] 16:45:00 Patient Name: ADELIA BETH Unit No: [id number] EXAMS: CPT CODE: [id number] US PELVIS COMPLETE 39634 CLINICAL HISTORY: Right lower quadrant pain. Status [...] flow is identified in the rightovary. at 5400 Reported and signed by: Mario Guidry MD CC: Hilaria Calderón MD Technologist: Dipesh Miranda RDMS, RVT Probe: Trnscrbd D/ (0565) Ro Orig Print D/T: S: 03/10/2019 (7475) [facility] NAME: ADELIA BETH Radiology Department PHYS: Hilaria Maldonado [address] : 1985 AGE: 33 SEX: Luis Fernando [place], [place] [address] LOC: DayanaraERS PHONE #: [phone] EXAM DATE: STATUS: REG ER FAX #: [phone] RAD NO: Page 1 Signed Report Patient Name: ADELIA BETH Unit No: [id number] EXAMS: CPT CODE: [id number] US PELVIS COMPLETE 63864 <Continued> [facility] NAME: ADELIA BETH Radiology Department PHYS: Hilaria Maldonado [address] : 1985 AGE: 33 SEX: F [place] [address] LOC: ALONDRA PHONE #: [phone] EXAM DATE: 03/10/2019 STATUS: REG ER FAX #: [phone] RAD NO: Page 2 Signed Report- US PELVIS [id number] 16:45:00 Patient Name: LAUREN BETH Unit No: [id number] EXAMS: CPT CODE: [id number] US PELVIS COMPLETE 83862 CLINICAL HISTORY: Right lower quadrant pain. Status [...] Dipesh Miranda RDMS, RVT Probe: Trnscrbd D/ (1335) t.MICAELAREmmaYOS Orig Print D/T: S: 03/10/2019 (0978) [facility] NAME: LAUREN BETH Radiology Department PHYS: GUTAL. - Stephane,Hilaria [address] : 1985 AGE: 33 SEX: F [place] [address] LOC: DayanaraERS PHONE #: [phone] EXAM DATE: 03/10/2019 STATUS: DEP ER FAX #: [phone] RAD NO: [id number] Page 1 Signed Report Patient Name: LAUREN BETH Unit No: [id number] EXAMS: CPT CODE: [id number] US PELVIS COMPLETE 91457 (Continued) [facility] NAME: LAUREN BETH Radiology Department PHYS: GUTAL. - Stephane,Hilaria [address] : 1985 AGE: 33 SEX: F [place] [address] : ALONDRA PHONE #: [phone] EXAM DATE: 03/10/2019 STATUS: DEP ER FAX #: [phone] RAD NO: [id number] Page 2 Signed ReportCBC W/AUTO DIFF 2019-03-10 [...] = PLTMR) UA RFLX MICR CULT IF [id number] 16:07:00 Test Item Value Reference Range Interpretation [...] A Indication for culture: Suprapubic PainUR HCG [id number] 16:07:00 Test Item Value Reference Range Interpretation [...] culture: Suprapubic PainUA RFLX MICR CULT IF [id number] 16:04:00 Test Item Value Reference Range Interpretation [...] EPIU) Indication for culture: Suprapubic PainUR HCG [id number] 16:04:00 Test Item Value Reference Range Interpretation [...] culture: Suprapubic PainUA RFLX MICR CULT IF [id number] 15:55:00 Test Item Value Reference Range Interpretation [...] RARE-FEW Indication for culture: Suprapubic PainUR HCG [id number] 15:55:00 Test Item Value Reference Range Interpretation [...] and tested. Indication for culture: Suprapubic PainED2 [id number] 01:18:00 Test Item Value Reference Range Interpretation [...] code = MPV) 6.9 fL 8.0-11.0 A [facility]kinED2 URINE [id number] 00:55:00 Test Item Value Reference Range Interpretation Comments Color (test code = UCOLR) Yellow Lt. Yellow A Clarity (test code = UCLAR) Clear Glucose (test code = UGLUC) NEGATIVE NEGATIVE N Bilirubin (test code = UBILI) NEGATIVE NEGATIVE N Ketones (test code = UKET) NEGATIVE NEGATIVE N Specific [place] (test code = USPGR) 1.030 1.005-1.030 A Blood (test code = UBLD) NEGATIVE NEGATIVE N PH (test code = UPH) 6.0 4.5-8.0 A Protein (test code = UPROT) Trace NEGATIVE A Urobilinogen (test code = U UROB) 0.2 >0.2 N Nitrite (test code = UNITR) NEGATIVE NEGATIVE N Leukocyte Esterase (test code = NEGATIVE NEGATIVE N ULEUK) [facility]ED[facility] , [id number] 00:54:00 Test Item Value Reference Range Interpretation Comments (Urine) (test code = Negative PREGU) [facility] ClaireTxryui-[id number] 13:07:00 Test Item Value Reference Range Interpretation Comments Lipase (test code = LIPA) 106 U/L 73-393 [facility]ED[facility] CT ABDOMEN/PELVIS W/[id number] 12:24:12Procedures: ED2 CT ABDOMEN/PELVIS W/CONTRASTExam Date: 02/07/2019 10:11 AMOrdering Physician: WYATT Downsinical Indication: [id number]: Epigastric painComparison: CT abdomen/pelvis, 01/27/19TECHNIQUE: Spiral multislice [...] MD02/07/2019 12:17 PMDictated By: ELMER PHAMDate: 02/07/2019 12:17[place] [address] [id number] 10:48:00 Test Item Value Reference Range Interpretation [...] (test code = TP) 7.6 gm/dl 6.4-8.1 [facility] HospitalLufkinED2 URINE [id number] 10:45:00 Test Item Value Reference Range Interpretation Comments Color (test code = UCOLR) Yellow Lt. Yellow A Clarity (test code = UCLAR) Sl Cloudy Glucose (test code = UGLUC) NEGATIVE NEGATIVE N Bilirubin (test code = UBILI) NEGATIVE NEGATIVE N Ketones (test code = UKET) NEGATIVE NEGATIVE N Specific [place] (test code = 1.025 1.005-1.030 A USPGR) Blood (test code = UBLD) NEGATIVE NEGATIVE N PH (test code = UPH) 5.5 4.5-8.0 A Protein (test code = UPROT) NEGATIVE NEGATIVE N Urobilinogen (test code = U UROB) 0.2 >0.2 N Nitrite (test code = UNITR) NEGATIVE NEGATIVE N Leukocyte Esterase (test code = NEGATIVE NEGATIVE N ULEUK) [facility] HospitalLufkinED2 , [id number] 10:45:00 Test Item Value Reference Range Interpretation Comments (Urine) (test code = Negative PREGU) [facility] HospitalLufkinED2 [id number] 10:44:00 Test Item Value Reference Range Interpretation [...] code = MPV) 6.8 fL 8.0-11.0 A [facility]CT ABDOMEN/PELVIS W/[id number] 12:29:19s/p hysterectomy; rlq painProcedure: CT ABDOMEN/PELVIS W/CONTRASTOrder Date: 01/27/2019 10:57 AMOrdering Provider: DR LEXUS CASTREJON ACOSTAClinical Indication: [id number]: Abdominal painComparison: September 30, 2018TECHNIQUE:The abdo men [...] PMDictated By: GLORY BENITEZKDate: 01/27/2019 12:23[facility]CRAMENTOURINALYSIS WITH [id number] 12:10:00 Test Item Value Reference Range Interpretation Comments Color (test code = UCOLR) YELLOW Clarity (test code = UCLAR) CLEAR Glucose (test code = UGLUC) NEGATIVE NEGATIVE N Bilirubin (test code = UBILI) NEGATIVE NEGATIVE N Ketones (test code = UKET) NEGATIVE NEGATIVE N Specific [place] (test code = USPGR) <=1.005 1.005-1.030 A [...] code = UBACT) Trace None Seen,Trace N [facility]dqz[facility]-[id number] 11:49:00 Test Item Value Reference Range Interpretation Comments Lipase (test code = LIPA) 91 U/L 73-393 [facility] HospitalkinAMYLASE, [id number] 11:49:00 Test Item Value Reference Range Interpretation Comments Amylase (test code = AMYL) 45 U/L 25-115 [facility]-fkinSTAT LAB CHEM [id number] 11:25:00 Test Item Value Reference Range Interpretation [...] = CREA) 0.5 mg/dl 0.6-1.3 L [facility] LAB CBC WITH AUTO [id number] 11:23:00 Test Item Value Reference Range Interpretation [...] H [facility] [place] PELVIS [id number] 07:55:25h/o complex right ovarian cystsProcedure: Pelvic ultrasound.CLINICAL [...] 12/07/20187:49 AMDictated By:WILEY VELÁZQUEZDate: 12/07/2018 07:49MM OF [id number] 03:11:00 Test Item Value Reference Range Interpretation Comments Lipase (test code = LIPA) 136 U/L 73-393 [facility] PAN[facility] (LIVER)2018-12-07 03:10:00 Test [...] code = 0.1 mg/dl 0.0-1.1 IBIL) [facility] LAB CHEM [id number] 02:41:00 Test Item Value Reference Range Interpretation [...] CREA) 0.5 mg/dl 0.6-1.3 L [facility] CBC WITH AUTO [id number] 02:39:00 Test Item Value Reference Range Interpretation [...] IG%) 0.5 % 0.0-0.4 H [facility] CenterkinURINALYSIS WITH [id number] 02:37:00 Test Item Value Reference Range Interpretation Comments Color (test code = UCOLR) YELLOW Clarity (test code = UCLAR) CLEAR Glucose (test code = UGLUC) 500 NEGATIVE A Bilirubin (test code = UBILI) NEGATIVE NEGATIVE N Ketones (test code = UKET) TRACE NEGATIVE A Specific [place] (test code = USPGR) >=1.030 1.005-1.030 A [...] code = UBACT) 2+ None Seen,Trace A [facility]-Zi, [id number] 07:39:00CULTURE RIGHT ABDOMEN WOUND CARE DEPTSpecimen: AbdomenCollected: [...] Sc (+/-) Negative - ICR (+/-) Negative -[facility]-LufkinXR CHEST AP/PA 1 [id number] 05:15:17Procedure: XR CHEST AP/PA 1 VIEWOrder Date: 09/30/2018 8:28 PMOrdering Provider: DIMAS Haskinsinical Indication: [id number]: Acute chest painComparison: May 13, 2017Findings:Cardiac size is magnified by technique.Pulmonary vasculature is normal.Mediastinal contour is normal.Aortic contour is normal.There is no consolidation or effusion.There is no evidence of active tuberculosis.There is no mass or pneumothorax.There is no skeletal abnormality.Impression: Negative AP portable chest x-ray.This final report was electronically signed by Dr Farzad Dewitt MD 10/01/20185:08 AMDictated By: FARZAD DEWITT.Date: 10/01/2018 05:08 [facility]/O [id number] 00:42:26NPO 4 hours. Do not withhold medsEXAM:CT [...] CDT.Dictated By: REHAN AZARDate: 10/01/2018 00:42[facility] OF [id number] 21:37:00 Test Item Value Reference Range Interpretation Comments Lipase (test code = LIPA) 82 U/L 73-393 [facility] HospitalHEP[facility] FUNCTION PANEL (LIVER)2018-09-30 21:37:00 Test [...] (test code = 0.5 mg/dl 0.0-1.1 IBIL) [facility] LAB CHEM [id number] 21:10:00 Test Item Value Reference Range Interpretation [...] = CREA) 0.5 mg/dl 0.6-1.3 L [facility] LAB CBC WITH AUTO [id number] 21:09:00 Test Item Value Reference Range Interpretation [...] (test code = IG%) 0.3 % 0.0-0.4 [facility]-Chantal W/WO TUBE,[id number] 12:44:00 RUN DATE: 09/04/18 [facility] PAGE 1 RUN TIME: 1454 Specimen Inquiry RUN USER: INTERFACE --[facility] [id number] LOC: KOURTNEY #: [id number] AGE/SX: 33/F ROOM: [facility] RE09/02/18REG DR: Elmer Flores : 87 BED: A DIS: 09/03/18 STATUS: DIS Coty TLOC: SPEC #: [id number] RECD: 09/02/18 STATUS: KWAME RETeri #: [id number] MELISSA: 09/02/18- SUBM DR: Elmer Flores III ENTERED: 09/03/18 SP TYPE: MUSA PELAYO DR: ORDERED: LEVEL IV CODES: [id number] - OVARY, NOS PROCEDURES: LEVEL IV (Incomplete) TISSUES: OVARY, NOS - RIGHT OVARIAN CYST CLINICAL HISTORY 33 year old, acute pelvic pain (wpd) FINAL DIAGNOSIS Right ovarian cyst, excision: - benign simple cyst of ovary Tissue code 1 CPT code(s): 92591 [facility] 09/04/18 GROSS DESCRIPTION ANATOMIC SOURCE [...] with multiple yellow-orange, centrally hemorrhagic corpora lutea. Center Receptionist sections are submitted as A and B. [...] NORMAL NORMAL code = PLTMR) CHEMISTRY 7 [id number] 14:15:00 Test Item Value Reference Range Interpretation [...] CA) 9.2 mg/dL 8.4-10.2 N CBC W/AUTO [id number] 13:42:00 Test Item Value Reference Range Interpretation [...] NORMAL NORMAL code = PLTMR) US INTRAVAGINAL [id number] 12:35:09Procedure: Pelvic ultrasound.CLINICAL INDICATION: Pelvic pain. Status [...] MD 09/01/201812:28 PMDictated By: WILEY VELÁZQUEZDate: 09/01/2018 12:28[facility] CBC WITH AUTO [id number] 11:31:00 Test Item Value Reference Range Interpretation [...] RS88 71 on 09/01/2018 11:31 ONLY AVAILABLE [address] [place] [address]-[place]ufkinCT ABDOMEN/PELVIS W/O [id number] 11:11:01MLP CProcedure: CT ABDOMEN/PELVIS W/O CONTRASTOrder Date: 09/01/2018 9:28 AMOrdering Provider: CHIN LORENZANAClinical Indication: [id number]: Abdominal pain. Left lower quadrant painComparison: 12/24/2017TECHNIQUE:CT [...] Benitez MD 09/01/201811:04 AMDictatedBy: Maggie BENITEZte: 09/01/2018 11:04[facility] CHEM [id number] 10:26:00 Test Item Value Reference Range Interpretation [...] CREA) 0.4 mg/dl 0.6-1.3 L ONLY AVAILABLE [address] [place] [address]-[facility] HospitalkinSTA LAB URINALYSIS WITHOUT [id number] 09:59:00 Test Item Value Reference Range Interpretation Comments Color (test code = UCOLR) Yellow Lt. Yellow A Clarity (test code = UCLAR) Clear Glucose (test code = UGLUC) NEGATIVE Negative A Bilirubin (test code = UBILI) NEGATIVE Negative A Ketones (test code = UKET) NEGATIVE Negative A Specific [place] (test code = USPGR) 1.015 1.005-1.030 A Blood (test code = UBLD) NEGATIVE Negative A PH (test code = UPH) 7.0 4.5-8.0 A Protein (test code = UPROT) NEGATIVE Negative A Urobilinogen (test code = U UROB) 0.2 >0.2 N Nitrite (test code = UNITR) NEGATIVE Negative A Leukocyte Esterase (test code = NEGATIVE Negative A ULEUK) ONLY AVAILABLE [address] [place] [address] INTRAVAGINAL PELVIS 2018-05-13 13:26:23Procedure: Pelvic ultrasound.CLINICAL INDICATION: [...] PMDictated By: WILEY VELÁZQUEZDate: 05/13/2018 13:20[facility] LAB CBC WITH AUTO [id number] 12:22:00 Test Item Value Reference Range Interpretation [...] (test code = 0.2 % 0.0-0.4 IG%) [facility] LAB CBC WITH AUTO [id number] 11:54:00 Test Item Value Reference Range Interpretation [...] 0.5 % 0.0-0.4 H IG%) ONLY AVAILABLE [address] [place] [address] LAB URINALYSIS WITHOUT [id number] 11:25:00 Test Item Value Reference Range Interpretation Comments Color (test code = UCOLR) Yellow Lt. Yellow A Clarity (test code = UCLAR) Clear Glucose (test code = UGLUC) NEGATIVE Negative A Bilirubin (test code = UBILI) NEGATIVE Negative A Ketones (test code = UKET) NEGATIVE Negative A Specific [place] (test code = USPGR) 1.020 1.005-1.030 A Blood (test code = UBLD) NEGATIVE Negative A PH (test code = UPH) 7.0 4.5-8.0 A Protein (test code = UPROT) NEGATIVE Negative A Urobilinogen (test code = U UROB) 0.2 >0.2 N Nitrite (test code = UNITR) NEGATIVE Negative A Leukocyte Esterase (test code = NEGATIVE Negative A ULEUK) ONLY AVAILABLE [address] [place] [address] LAB , URINE 2018-05-13 11:25:00 Test Item Value Reference Range Interpretation Comments (Urine) (test code = Negative PREGU) ONLY AVAILABLE [address] [place] [address] LAB CHEM [id number] 11:23:00 Test Item Value Reference Range Interpretation [...] CREA) 0.5 mg/dl 0.6-1.3 L ONLY AVAILABLE 8A[facility]12[facility]kinUS INTRAVAGINAL PELVIS 2017-12-24 12:50:53Procedure: Pelvic ultrasound.CLINICAL [...] MD 12/24/201712:44 PMDictated By: WILEY VELÁZQUEZDate: 12/24/2017 12:50[facility] SACRAMENTOURINALYSIS WITH [id number] 10:22:00 Test Item Value Reference Range Interpretation Comments Color (test code = UCOLR) Yellow Clarity (test code = UCLAR) Clear Glucose (test code = UGLUC) NEGATIVE NEGATIVE N Bilirubin (test code = UBILI) NEGATIVE NEGATIVE N Ketones (test code = UKET) NEGATIVE NEGATIVE N Specific [place] (test code = USPGR) 1.025 1.005-1.030 A [...] code = UBACT) Trace None Seen,Trace N [facility] HospitalstefanieLIPASE, [id number] 10:05:00 Test Item Value Reference Range Interpretation Comments Lipase (test code = LIPA) 40 U/L 8-223 [facility]-[id number] 10:05:00 Test Item Value Reference Range Interpretation [...] ( 4 - SerumAlbumin)] EGFR if >60 [place] (test code mL/min/1.73m\\ = EGFRAA) S\\2 EGFR if Non- >60 Estimate d Glomerular [place]anian (test code mL/min/1.73m\\ Filtrat ion Rate (eGFR) [...] c hronic kidney failure. [facility]-[place]kinCT ABD/ PELVIS W/O CON (RENAL STONE)2017-12-24 09:38:31Procedure: [...] MD 12/24/20179:32 AMDictated By: WILEY VELÁZQUEZDate: 12/24/2017 09:38[facility] WITH AUTO DIFF 2017-12-24 09:26:00 Test [...] = 0.6 % 0.0-0.4 H IG%) AUTO [facility]-[place]kinCT ABD/ PELVIS W/O CON (RENAL STONE) 2017-06-21 [...] on 3:19 AMCDT.Dictated By: MARVIN DOBBSDate: 06/21/2017 03:20[facility] SACRAMENTOURINALYSIS WITH [id number] 03:20:00 Test Item Value Reference Range Interpretation Comments Color (test code = UCOLR) YELLOW Clarity (test code = UCLAR) CLEAR Glucose (test code = UGLUC) NEGATIVE NEGATIVE N Bilirubin (test code = UBILI) NEGATIVE NEGATIVE N Ketones (test code = UKET) NEGATIVE NEGATIVE N Specific [place] (test code = 1.020 1.005-1.030 A USPGR) [...] = UBACT) None Seen None Seen,Trace N [address]-[id number] 03:07:00 Test Item Value Reference Range Interpretation [...] ( 4 - SerumAlbumin)] EGFR if >60 [place] (test code mL/min/1.73m\\ = EGFRAA) S\\2 EGFR if Non- >60 Estimate d Glomerular [place] (test code mL/min/1.73m\\ Filtrat ion Rate (eGFR) [...] and management of c hronic kidney failure. [address]-[facility] HospitalkinLIPASE, [id number] 03:07:00 Test Item Value Reference Range Interpretation Comments Lipase (test code = LIPA) 61 U/L 8-[address] WITH AUTO [id number] 03:05:00 Test Item Value Reference Range Interpretation [...] code = 0.4 % 0.0-0.4 IG%) er [address] [place] [address]-[place]ufkinXR CHEST 2 PA [id number] 19:56:04 Procedure: XR CHEST 2 PA LATERALExam date: 05/13/2017 3:53 PMOrdering Provider: DR ASA BLOOMClinical Indication: fatigue, Chest painComparison: March 15, 2016Findings:Cardiomediastinal silhouette is within normal limits.The lungs are clear.No pleural effusion or pneumothorax. Osseous structures are nonacute.No evidence of active tuberculosis.Impression:No acute cardiopulmonary process.This final report was electronically signed by Dr Wiley Velázquez MD 05/13/20177:49 PMDictated By: WILEY VELÁZQUEZDate: 05/13/2017 19:55[facility] [place] [id number] 16:53:00 Test Item Value Reference Range Interpretation [...] ( 4 - SerumAlbumin)] EGFR if >60 [place] (test code mL/min/1.73m\\ = EGFRAA) S\\2 EGFR if Non- >60 Estimate d Glomerular [place]anian (test code mL/min/1.73m\\ Filtrat ion Rate (eGFR) [...] c hronic kidney failure. [facility])2017-05-13 16:32:00 Test Item Value Reference [...] WILL BE NOTED ON THE RE PORT. [facility] HospitalkinURINALYSIS WITH [id number] 18:25:00 Test Item Value Reference Range Interpretation Comments Color (test code = UCOLR) YELLOW Clarity (test code = UCLAR) CLEAR Glucose (test code = UGLUC) NEGATIVE NEGATIVE N Bilirubin (test code = UBILI) NEGATIVE NEGATIVE N Ketones (test code = UKET) NEGATIVE NEGATIVE N Specific [place] (test code = 1.025 1.005-1.030 A USPGR) [...] UR MISC) None Seen None Seen N [facility] PAN[facility] (LIVER)2016-10-09 18:21:00 Test Item [...] (test code = 0.1 mg/dl 0.0-1.1 IBIL) [facility]-[id number] 18:21:00 Test Item Value Reference Range Interpretation [...] mg/dl 8.4-10.2 = CALC) EGFR if >60 [place] (test code mL/min/1.73m\\ = EGFRAA) S\\2 EGFR if Non- >60 Estimate d Glomerular [place] (test code mL/min/1.73m\\ Filtrat ion Rate (eGFR) [...] c hronic kidney failure. [facility]-fkinB[facility]UCA[facility] WITH AUTO [id number] 18:04:00 Test Item Value Reference Range Interpretation [...] Auto (test code = 0 NRBC_AUTO) AUTO [facility]
[2022-08-11] MEDS ORDERED: NA CHLORIDE 0.9% 1,000 ML ONE (23:01)
[2022-08-11] MEDS ORDERED: PROMETHAZINE INJ 25 MG/ML AMP ONE (23:01)
[2022-08-11] MEDS ORDERED: HYDROMORPHONE HCL 1 MG/ML INJ ONE (23:01)
[2022-08-11 23:45] LABS: Urine Blood Negative (Negative); Urine Glucose Negative (Negative); Urine Protein Negative (Negative); Urine Specific Gravity >=1.030 (1.005-1.030)
--- NOTE | 2022-08-11 23:47 | ER ---
Nurse's Notes [facility] Name: Hong Pace Age: 37 yrs Sex: Female : 1985 Arrival Date: 08/11/2022 Time: 22:25 Bed 16 Private MD: Diagnosis: Lower abdominal pain, unspecified Presentation: 08/11 22:50 Chief complaint: Patient states: Abdominal pain getting worse since 8 pm today. ke1 Coronavirus screen: Vaccine status: Patient reports being unvaccinated. Ebola Screen: No symptoms or risks identified at this time. Initial Sepsis Screen: Does the patient meet any 2 criteria? No. Patient's initial sepsis screen is negative. Does the patient have a suspected source of infection? No. Patient's initial sepsis screen is negative. Risk Assessment: Do you want to hurt yourself or someone else? Patient reports no desire to harm self or others. Onset of symptoms was August 11, 2022 at 20:00. 22:50 Method Of Arrival: Ambulatory ke 22:50 Acuity: [place] 3 ke1 Triage Assessment: 23:12 General: Appears uncomfortable, Behavior is appropriate for age. Pain: Complains of ke1 pain in abdomen Pain does not radiate. Pain currently is 10 out of 10 on a pain scale. at worst was 10 out of 10 on a pain scale. level that patient reports is acceptable is 4 out of 10 on a pain scale. GI: Bowel sounds present X 4 quads. Abd is soft Abd is non tender in right lower quadrant and left lower quadrant. Historical: - Allergies: 23:12 Morphine; ke1 23:12 Toradol; ke1 - PMHx: 23:12 Endometriosis of vagina; melanoma; ke1 - PSHx: 23:12 section; Cholecystectomy; hysterectomy; Multiple abdominal surgeries; Ovary ke1 removal; Thyroidectomy; - Immunization history:: Client reports having NOT received the Covid vaccine. - Social history:: Smoking status: Patient reports the use of cigarette tobacco products, smokes one-half pack cigarettes per day. Screenin:13 [facility] ED Fall Risk Assessment (Adult) History of falling in the last 3 months, ke1 including since admission No falls in past 3 months (0 pts) Confusion or Disorientation No (0 pts) Intoxicated or Sedated No (0 pts) Impaired Gait No (0 pts) Mobility Assist Device Used No (0 pt) Altered Elimination No (0 pt) Score/Fall Risk Level 0 - 2 = Low Risk. Abuse screen: Denies threats or abuse. Nutritional screening: No deficits noted. Tuberculosis screening: No symptoms or risk factors identified. Assessment: 08/12 00:10 Reassessment: Patient denies pain at this time. Patient states feeling better. Patient ll3 states symptoms have improved. Vital Signs: 08/11 22:50 BP 133 / 95; Pulse 89; Resp 17; Temp 98.7; Pulse Ox 100% ; Weight 108.86 kg; Height 5 ke1 ft. 4 in. (162.56 cm); Pain 10/10; 08/12 00:10 BP 143 / 100; Pulse 85; Resp 17; Temp 98.7; Pulse Ox 99% ; Pain 0/10; ll3 08/11 22:50 Body Mass Index 41.20 (108.86 kg, 162.56 cm) ke1 ED Course: 08/11 22:25 Patient arrived in ED. ja2 22:32 Christal Dick FNP-C is [facility]. snw 22:32 Rosalino Tucker DO is Attending Physician. snw 22:55 Joni Ritchie, [place] is Primary Nurse. ke1 23:11 Triage completed. ke1 23:34 Inserted saline lock: 24 gauge in right forearm, using aseptic technique. ke1 08/12 00:10 Arm band placed on. ll3 00:11 No provider procedures requiring assistance completed. ke1 00:11 IV discontinued. ke1 Administered Medications: 08/11 23:34 Drug: Phenergan (promethazine) 25 mg Route: IVP; Site: right forearm; ke1 23:49 Follow up: Response: Marked relief of symptoms ke1 23:35 Drug: NS 0.9% 1000 ml Route: IV; Rate: 1 bolus; Site: right forearm; ke1 23:35 Drug: Dilaudid (HYDROmorphone) 1 mg Route: IVP; Site: right forearm; ke1 Medication: 08/12 00:11 VIS not applicable for this client. ke1 Outcome: 08/11 23:46 Discharge ordered by . snw 08/12 00:11 Discharged to home ambulatory. ke1 Condition: good Discharge instructions given to patient. 00:12 Patient left the ED. ke1 Signatures: Christal Dick, CAREER GUIDANCE TECHNICIAN-C CAREER GUIDANCE TECHNICIAN-Csnw Leslie Estevez [place], RN RN ll3 Joni Ritchie, RN RN ke1
--- NOTE | 2022-08-11 23:47 | EDPHYS ---
Physician Documentation [facility] Name: Hong Pace Age: 37 yrs Sex: Female : 1985 Arrival Date: 08/11/2022 Time: 22:25 Bed 16 Private MD: ED Physician Rosalino Tucker HPI: 08/11 22:53 This 37 yrs old Female presents to ER via Unassigned with complaints of Abdominal Pain. snw 22:53 The patient presents with abdominal pain that is diffuse. Onset: The symptoms/episode snw began/occurred gradually, and became persistent. The symptoms do not radiate. Associated signs and symptoms: Pertinent positives: nausea and vomiting. The symptoms are described as stabbing. Severity of pain: At its worst the pain was moderate severe in the emergency department the pain is unchanged. The patient has experienced similar episodes in the past, chronically. The patient has not recently seen a physician. Pt has endometriosis, multiple abdominal surgeries, will need adhesion release, on pain management. Historical: - Allergies: 23:12 Morphine; ke1 23:12 Toradol; ke1 - PMHx: 23:12 Endometriosis of vagina; melanoma; ke1 - PSHx: 23:12 section; Cholecystectomy; hysterectomy; Multiple abdominal surgeries; Ovary ke1 removal; Thyroidectomy; - Immunization history:: Client reports having NOT received the Covid vaccine. - Social history:: Smoking status: Patient reports the use of cigarette tobacco products, smokes one-half pack cigarettes per day. ROS: 22:53 Eyes: Negative for injury, pain, redness, and discharge, ENT: Negative for injury, snw pain, and discharge, Neck: Negative for injury, pain, and swelling, Cardiovascular: Negative for chest pain, palpitations, and edema, Respiratory: Negative for shortness of breath, cough, wheezing, and pleuritic chest pain. 22:53 Back: Negative for injury and pain, : Negative for injury, bleeding, discharge, and swelling, MS/Extremity: Negative for injury and deformity, Skin: Negative for injury, rash, and discoloration, Neuro: Negative for headache, weakness, numbness, tingling, and seizure, Psych: Negative for depression, anxiety, suicide ideation, homicidal ideation, and hallucinations. 22:53 Constitutional: Positive for body aches, malaise, poor PO intake. 22:53 Abdomen/GI: Positive for abdominal pain, nausea and vomiting. Exam: 22:51 Constitutional: This is a well developed, well nourished patient who is awake, alert, snw and in no acute distress. Head/Face: Normocephalic, atraumatic. Eyes: Pupils equal round and reactive to light, extra-ocular motions intact. Lids and lashes normal. Conjunctiva and sclera are non-icteric and not injected. Cornea within normal limits. Periorbital areas with no swelling, redness, or edema. ENT: Nares patent. No nasal discharge, no septal abnormalities noted. Tympanic membranes are normal and external auditory canals are clear. Oropharynx with no redness, swelling, or masses, exudates, or evidence of obstruction, uvula midline. Mucous membranes moist. Neck: Trachea midline, no thyromegaly or masses palpated, and no cervical lymphadenopathy. Supple, full range of motion without nuchal rigidity, or vertebral point tenderness. No Meningismus. Chest/axilla: Normal chest wall appearance and motion. Nontender with no deformity. No lesions are appreciated. Cardiovascular: Regular rate and rhythm with a normal S1 and S2. No gallops, murmurs, or rubs. Normal PMI, no JVD. No pulse deficits. Respiratory: Lungs have equal breath sounds bilaterally, clear to auscultation and percussion. No rales, rhonchi or wheezes noted. No increased work of breathing, no retractions or nasal flaring. Back: No spinal tenderness. No costovertebral tenderness. Full range of motion. Skin: Warm, dry with normal turgor. Normal color with no rashes, no lesions, and no evidence of cellulitis. MS/ Extremity: Pulses equal, no cyanosis. Neurovascular intact. Full, normal range of motion. Neuro: Awake and alert, GCS 15, oriented to person, place, time, and situation. Cranial nerves II-XII grossly intact. Motor strength 5/5 in all extremities. Sensory grossly intact. Cerebellar exam normal. Normal gait. Psych: Awake, alert, with orientation to person, place and time. Behavior, mood, and affect are within normal limits. 22:51 Abdomen/GI: Inspection: obese Bowel sounds: normal, Palpation: moderate abdominal tenderness, in all quadrants, in the right upper quadrant, right lower quadrant and left lower quadrant. Vital Signs: 22:50 BP 133 / 95; Pulse 89; Resp 17; Temp 98.7; Pulse Ox 100% ; Weight 108.86 kg; Height 5 ke1 ft. 4 in. (162.56 cm); Pain 10/10; 02 00:10 BP 143 / 100; Pulse 85; Resp 17; Temp 98.7; Pulse Ox 99% ; Pain 0/10; ll3 08/11 22:50 Body Mass Index 41.20 (108.86 kg, 162.56 cm) ke1 MDM: 08/11 22:52 Differential diagnosis: bowel obstruction, Endometriosis, gastritis, Ureterolithiasis, snw urinary tract infection. Data reviewed: vital signs, nurses notes. Care significantly affected by the following chronic conditions: scar tissue/adhesions/abdominal pain. On pain management. Counseling: I had a detailed discussion with the patient and/or guardian regarding: the historical points, exam findings, and any diagnostic results supporting the discharge/admit diagnosis, the need for outpatient follow up, to return to the emergency department if symptoms worsen or persist or if there are any questions or concerns that arise at home. Special discussion: Based on the history and exam findings, there is no indication for further emergent testing or inpatient evaluation. I discussed with the patient/guardian the need to see the chair inspector for further evaluation of the symptoms. I discussed with the patient/guardian the need to see the general surgeon for further evaluation of the symptoms. I discussed with the patient/guardian the need to see the OB Gyne specialist for further evaluation of the symptoms. 22:55 Patient medically screened. formerly [facility] 08/11 22:33 Order name: Urine Culture formerly [facility] 08/11 22:33 Order name: Urine Microscopic Only; Complete Time: 00:02 snw 08/11 23:45 Order name: Urine Dipstick-Ancillary; Complete Time: 23:45 EDMS 08/11 23:46 Order name: Urine --Ancillary (enter results); Complete Time: 00:02 2 08/11 22:33 Order name: Urine Dipstick-Ancillary (obtain specimen); Complete Time: 23:46 snw Administered Medications: 23:34 Drug: Phenergan (promethazine) 25 mg Route: IVP; Site: right forearm; ke1 23:49 Follow up: Response: Marked relief of symptoms ke1 23:35 Drug: NS 0.9% 1000 ml Route: IV; Rate: 1 bolus; Site: right forearm; ke1 23:35 Drug: Dilaudid (HYDROmorphone) 1 mg Route: IVP; Site: right forearm; ke1 Disposition: 08/12 05:33 Co-signature as Attending Physician, Rosalino Tucker DO I reviewed the patient's care ms3 provided by the Advanced Practice Provider and agree with the diagnosis and treatment plan. Disposition Summary: 08/11/22 23:46 Discharge Ordered Location: Home snw Condition: Stable snw Diagnosis - Lower abdominal pain, unspecified snw Followup: snw - With: Emergency Department - When: As needed - Reason: Worsening of condition Followup: snw - With: Private Physician - When: 2 - 3 days - Reason: Recheck today's complaints, Continuance of care, Re-evaluation by your physician Discharge Instructions: - Discharge Summary Sheet snw - Abdominal Pain, Adult snw - Colic snw - Gas and Gas Pains, Pediatric snw - [place] Diet snw Forms: - Medication Reconciliation Form snw - Thank You Letter snw - Antibiotic Education snw - Prescription Opioid Use snw Prescriptions: - promethazine 25 mg Oral Tablet - take 1 tablet by ORAL route every 6 hours As needed; 20 tablet; Refills: 0, snw Product Selection Permitted Signatures: Dispatcher [employer] Christal Arriola FNP-Gerald HOG RIBBER-Rosalino Patino DO DO ms3 Joni Ritchie, RN RN ke1
[2022-08-11 23:55] LABS: Urine Specific Gravity/Preg >1.030 (1.005-1.030)
[2022-08-11 23:58] LABS: Renal Epithelial <5 /HPF (None Seen); Urine Bacteria <20 /HPF (<20); Urine Mucus 1+ /HPF (None Seen); Urine RBC None Seen /HPF (None Seen)
[2022-08-12 00:42] VITALS: TEMP 98.7
[2022-08-12 00:48] VITALS: BP 143/100; O2SAT 99
== END 2022-08-12 00:12 | disposition home or self-care (01) ==
LOC: ER 22:23
DX: R10.30 Lower abdominal pain, unspecified (principal)
CPT/HCPCS: 81003; 81015; 81025; 87086; 87088; 96374; 96375; 99283; J1170; J2550; J7030

== ENCOUNTER 2022-08-26 22:40 | Emergency (ER) | payer SELFPAY ==
--- OUTSIDE RECORDS SUMMARY | 2022-08-26 22:42 | XMS REPORT | Clinical Summary ---
:1985 Author Organization [facility] MD [facility] Address [address] [place] [address] Care Team Providers Name Role Phone Keila [...] malignant melanoma of skin 10/26/2021 Travel after 08/26/2021 Immunizations Name Administration Dates Next Due Influenza [...] OVARIAN CYST SURGERY 08/29/2018 - Right 09/28/2018 MT EXCISION MAL LESION 09/23/2018 Abdomen/Right Procedure : EXCISION OF TRUNK/ARM/LEG 0.6-1.0 CM MALIGNA NT LESION OF TRUNK, right epi gastric; Surgeon: Nicolasa Valentine MD; Location: [facility] OR; Service: SURG ON C [...] 10/25/2022 Follow-Up Dermatology Lisbeth Shannon M D [address] [place], [place] [address] (Wo rk) Health Maintenance Due Date Last Done Comments COVID-19 Vaccination (#1) 01/11/1987 Results Not on fileafter 08/26/2021 Advance Directives Code Status Date Activated Date Inactivated Comments Full Code 10/04/2018 8:21 PM 10/08/2018 5:55 PM Code Status Date Activated Date Inactivated Comments Full Code 09/23/2018 1:48 PM 09/23/2018 6:55 PM Care Teams Optomechanical Technician Relationship Specialty Start Date End Date Keila Valentine MD PCP - General Surgical Oncology 08/26/18 [address] [place] [address] Navi Arango FNP PCP - External Primary Family Practice 09/08/18 [address] [place] [address]
--- OUTSIDE RECORDS SUMMARY | 2022-08-26 22:58 | XMS REPORT | Continuity of Care Document ---
:1985 Author Organization [facility] t Address [address] [place] [address] Care Team Providers Name Role Phone Keila Valentine MD Primary Care Physician Josué Arango Attending Clinician Unavailable SANTINO_Melinda Attending Clinician Unavailable MAGDALENE LUCIA Attending Clinician Unavailable Magdalene Lucia MD Attending Clinician Unknown, Attending Attending Clinician Unavailable RIDGE PGAAN Attending Clinician Unavailable Ridge Pagan MD Attending Clinician Truman Quintero Attending Clinician Unavailable TRICE HARRIS Attending Clinician Unavailable Steven KNOWLES, Trice Attending Clinician Mohan OCCUPATIONAL THERAPY ASSIST, Ameena Attending Clinician AMEENA PRESTON Attending Clinician Unavailable Praveen Blas MD Attending Clinician EKTA BERMUDEZ Attending Clinician Unavailable PATRICK SCHUMACHER Attending Clinician Unavailable Olga Clements Attending Clinician Unavailable LEANNE LOZOYA S Attending Clinician Unavailable Lozoyayovany GARCIA, Leanne S Attending Clinician Eve Chaves RN Attending Clinician Unavailable Patrick Schumacher Attending Clinician Doctor Unassigned, [place] Attending Clinician Unavailable SETH DYKES Attending Clinician [...] Unavailable QUINTIN BRITO Admitting Clinician Unavailable MIKY THMOPSON Admitting Clinician Unavailable DIMAS HAQUE Admitting Clinician Unavailable DR ASA BLOOM Admitting Clinician Unavailable Payers Payer Name Policy Type Policy Number Effective Date Expiration Date Abhinav durbin [id number] 1959 00:00:00 MEDI-SHARE C1 [id number] [facility] MEDI-SHARE C1 [id number] [facility] MEDI-SHARE C1 [id number] [facility] [id number] 1958 00:00:00 MEDI-SHARE C1 [id number] [facility] PHCS GENERIC [id number] 2018 00:00:00 Problems Condition Condition Condition Status [...] of preprocedu preprocedu 00:00: g of this [place] [facility] 00 note examinatio examinatio might be Gian [...] l (LUF/LI V/SA) UNSPECIFIE UNSPECIFIE Problem Active [facility] HYPOTHYROI HYPOTHYROI Me moria DISM DISM l (LUF/LI V/SA) 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 Memoria l (LUF/LI V/SA) Pain in Pain in Problem Active [facility] pelvis pelvis [facility] (LUF/LI V/SA) Anxiety Anxiety Problem Active [facility] (LUF/LI V/SA) [id number] Endometrio Problem Active [facility] No known No known Disease Unive rs active active ity of problems problems [facility] Allergies, Adverse Reactions, Alerts Allergy Allergy Status Severity Reaction(s) Onset Inactive Treating Comm ents Source Name Type Date Date Clinician ket[place] DA Active [place] rash 2021-07 [facility] [place] [facility] [place] DA Active U rash [facility] 2[facility]07 [place] 00:[facility] 00 [facility] [place] DRUG Active Low Rash 2020-07 Univers C INGREDI 2- ity of 00:00: [address] [place] Propensi Active Rash 2020-07 Univer s c ty to 2-22 ity of adverse 00:00: [place] reaction 00 Medical s Branch ketorola DA Active [place] [facility]10 [facility] [place] DA Active U [facility] c 9-24 [place] 00:00: d 00 Medical [place] ket[place]ola DA Active U rash [facility] c 9-24 [place] 00:[facility]: d 00 [facility] [place] Drug Active Itching Univers c Allergy 1-19 ity of 00:00: [place] 00 MD [facility] 0 Drug Active Unknown [facility] Toradol DA Active Unknown Rash [facility] Memoria l (LUF/LI V/SA) Family History Family Member Diagnosis Comments Start Date Stop Date Source Natural mother -Breast cancer [facility] [place] [facility] Social History Social Habit Start Date Stop Date Quantity Comments Source History of Tobacco [facility] - Use [facility] ASSERTION [facility] [place] [facility] Exposure to 2022-04-27 2022-05-07 Not sure [facility] SARS-CoV-2 (event) 00:00:00 07:55:00 [facility] Tobacco use and 2021-08-29 2021-08-29 Smokeless Universit y of exposure 00:00:00 00:00:00 tobacco non-user [facility] Alcohol intake 2018-10-04 2018-10-04 Current University of 00:00:00 00:00:00 non-drinker of [place] MD [facility] (finding) Cigarettes smoked 2018-09-04 2018-09-04 Univers ity of current (pack per 00:00:00 00:00:00 [place] René Neely ) - Reported Cancer Ce nter Cigarette 2018-09-04 2018-09-04 University of pack-years 00:00:00 00:00:00 [facility] Sex Assigned At [birth year] Religion 00:00:00 00:00:00 Hospital Smoking Status Start Date Stop Date Source Tobacco smoking Religion Hospit al consumption unknown Never smoked tobacco [facility] [place] [facility] Former Smoker 2020-05-03 00:00:00 2020-05-03 [facility] Ce nter Medications Ordered Filled Start Stop Current Ordering Indication Dosage Frequency Signature Comments Components Source Medication Medication Date Date Medication? Clinician (SIG) Name Name ondansetron 2021-07- No [id number] 8mg Univers (ZOFRAN-ODT 2-15 -14 ity of ) 00:45: 23:45 [place] disintegrat 00 :00 Medical ing tablet Branch 8 mg ondansetron 2021-07- No [id number] 8mg 8 mg, Univers (ZOFRAN-ODT 2-15 -14 Oral, ity of ) 00:45: 23:45 ONCE, 1 [place] disintegrat 00 :00 dose, On Medi felipa ing tablet Wed Branch 8 mg 06/13/22 at 1845, Routine benzonatate 2021-07 Yes [id number] 200mg Take 2 Univers 100 mg 2-14 capsules ity of capsule 00:00: by mouth [place] 00 every 8 Medical (eight) Branch hours as needed for Cough. ondansetron 2021-07 Yes [id number] 4mg Take 1 Univers 4 mg 2-14 tablet by ity of disintegrat 00:00: mouth [place] ing tablet 00 every 8 Medica l (eight) Branch hours as needed for Nausea and Vomiting (N/V). nirmatrelvi 2021-07 Yes [id number] 3{tbl} Take 3 Univers r-ritonavir 2-14 tablets by it y of (PAXLOVID, 00:00: mouth in [place] as EUA,) 300 00 the Medical mg (150 mg morning Branch x 2)-100 mg and 3 tablet tablets in the evening. ondansetron 2021-07 Yes [id number] 4mg Take 1 Univers 4 mg 2-14 tablet by ity of disintegrat 00:00: mouth [place] ing tablet 00 every 8 Medica l (eight) Branch hours as needed for Nausea and Vomiting (N/V). nirmatrelvi 2021-07 Yes [id number] 3{tbl} Take 3 Univers r-ritonavir 2-14 tablets by it y of (PAXLOVID, 00:00: mouth in [place] as EUA,) 300 00 the Medical mg (150 mg morning Branch x 2)-100 mg and 3 tablet tablets in the evening. promethazin 2021-07 Yes [id number] 5mL Take 5 mL Univers e-dextromet 2-14 by mouth 4 it y of horphan 00:00: (four) [place] 6.25-15 00 times Medical mg/5 mL daily as Branch syrup needed for Cough. nirmatrelvi 2021-07- No [id number] 3{tbl} Take 3 Univers r-ritonavir 2-14 12-14 tablets by i ty of (PAXLOVID, 00:00: 00:00 [place] EUA[place] 300 00 :00 the Medical mg (150 mg morning Branch x 2)-100 mg and 3 tablet tablets in the evening. benzonatate 2021-07 No [id number] 200mg Take 2 Univers 100 mg 2-14 [...] n: Perioperat kieran Patient tamsulosin 2021-07 Yes [id number] .4mg Take 1 U nivers 0.4 mg 24 07-07 capsule by ity of hr capsule 00:00: mouth at [place] as 00 bedtime. Medical Branch tamsulosin 2021-07- No [id number] .4mg Take 1 Univers 0.4 mg 24 [...] 1 Medical 10 mg dose, On Branch [facility] 02/19/22 at 1030, JOSE NaCl 0.9% No 1000mL at 999 Uni vers (NS) bolus 02-19 mL/hr, ity of infusion 15:30: 15:58 1,000 mL, [place] as 1,000 mL 00 :00 IV Medical Infusion, Branch ONCE, 1 dose, On [facility] 02/19/22 at 1030, JOSE morpHINE (4 No 4mg 4 mg, Slow Univers mg/mL) 02-19 IV Push, ity of injection 4 14:45: 15:05 [place]CE, 1 [place] mg 00 :00 dose, On Medical [facility] 02/19/22 at 0945, STAT ondansetron No 4mg 4 mg, Slow Univers (ZOFRAN 02-19 IV Push, ity of (PF)) 14:30: 15:05 ONCE, 1 [place] injection 4 00 :00 dose, On Medi feliap mg [facility] 02/19/22 at 0930, JOSE methylPREDN 2021-0 Yes [id number] Take by Univers ISolone 6-01 mouth ity of (MEDROL, 00:00: SEE-INSTRU [place] TE,) 4 mg 00 CTIONS. Medica l tablets follow Branch package directions methylPREDN Yes [id number] Take by Univers ISolone 11-29 mouth ity of (MEDROL, 00:00: SEE-INSTRU [place] TE,) 4 mg 00 CTIONS. Medica l tablets follow Branch package directions methylPREDN Yes [id number] Take by Univers ISolone 11-29 mouth ity of (MEDROL, 00:00: SEE-INSTRU [place] TE,) 4 mg 00 CTIONS. Medica l tablets follow Branch package directions methylPREDN 2021- No [id number] Take by [facility] ISolone 11-29 12-14 mouth ity of (MEDROL, 00:00: 00:00 [place]IN[place] TE,) 4 mg 00 :00 CTIONS. Medica l tablets follow Branch package directions amoxicillin 2021- No [id number] 1{tbl} Take 1 Univers -clavulanat 11-29 tablet [...] estrogens, Yes Take by Univ ers conjugated 08-29 mouth. ity of (PREMARIN 16:19: [place] ORAL) 44 Medical Branch estrogens, Yes Take by Uni vers conjugated - mouth. ity of (PREMARIN 16:19: [...] [place] ORAL) 44 Medical Branch naproxen Yes [id number] 500mg Take 1 U nivers (NAPROSYN) 2-02 tablet by ity of 500 mg 00:00: mouth 2 [place] tablet 00 (two) Medical times Branch daily with meals. naproxen 2021-0 Yes [id number] 500mg Take 1 U nivers (NAPROSYN) 2-02 tablet by ity of 500 mg 00:00: mouth 2 [place] tablet 00 (two) Medical times Branch daily with meals. naproxen 2021-0 Yes [id number] 500mg Take 1 U nivers (NAPROSYN) 2-02 tablet by ity of 500 mg 00:00: mouth 2 [place] tablet 00 (two) Medical times Branch daily with meals. naproxen 2021-0 Yes [id number] 500mg Take 1 U nivers (NAPROSYN) 2-02 tablet by ity of 500 mg 00:00: mouth 2 [place] tablet 00 (two) Medical times Branch daily with meals. naproxen 2021-0 Yes [id number] 500mg Take 1 U nivers (NAPROSYN) 2-02 tablet by ity of 500 mg 00:00: mouth 2 [place] tablet 00 (two) Medical times Branch daily with meals. albuterol 2020-07 Yes [id number] 2{puff} Inhale 2 Univers 90 2-22 Puffs [...] Cough. Indication s: cough albuterol 2020-07 Yes [id number] 2{puff} Inhale 2 Univers 90 2-22 Puffs [...] Cough. Indication s: cough albuterol 2020-07 Yes [id number] 2{puff} Inhale 2 Univers 90 2-22 Puffs [...] Cough. Indication s: cough albuterol 2020-07 Yes [id number] 2{puff} Inhale 2 Univers 90 2-22 Puffs [...] Cough. Indication s: cough albuterol 2020-07 Yes [id number] 2{puff} Inhale 2 Univers 90 2-22 Puffs ity of mcg/actuati 00:00: every 6 [place] as on inhaler 00 (six) Medical hours as Branch needed for Wheezing or Bronchospa sm. codeine-gua 2020-07 No 10mL Take 10 mL Univers ifenesin [...] 00:00: MOUTH EVERY DAY Medical IN THE [place] MORNING ON AN EMPTY STOMACH levothyroxi 2020-07 Yes TAKE 1 Univ ers ne 137 mcg 2-16 TABLET BY ity of tablet 00:00: MOUTH EVERY DAY Medical IN THE [place] MORNING ON AN EMPTY STOMACH acetaminoph acetaminoph [...] of (PREMARIN 00:00: daily. [place] ORAL) 00 [facility] Premarin Premarin 2018-07 Yes Kaywin 1 tablet Common 0-23 [facility] 00:[facility]: - [facility] 00 [facility] Premarin Premarin 2018-07 No 1{table QD Premarin 1.25 MG 1.25 MG 0-23 t} 1.25 MG 00:00: 00 estrogens, 2018-07 Yes Take by Univ ers conjugated 0-23 mouth ity of (PREMARIN 00:00: daily. [place] ORAL) 00 MD Chan tata [facility] estrogens, 2018-07 Yes Take by Univ ers conjugated 0-23 mouth ity of (PREMARIN 00:00: daily. [place] ORAL) 00 MD Gian payton [facility] estrogens, 2018-07 Yes Take by Univ ers conjugated 0-23 mouth ity of (PREMARIN 00:00: daily. [place] ORAL) 00 MD Springer [facility] estrogens, 2018-07 Yes Take by Univ ers conjugated 0-23 mouth ity of (PREMARIN 00:00: daily. [place] ORAL) 00 MD Springer [facility] estrogens, 2018-07 Yes Take by Univ ers conjugated 0-23 mouth ity of (PREMARIN 00:00: daily. [place] ORAL) 00 MD [facility] tata [facility] estrogens, 2018-07 Yes Take by Univ ers conjugated 0-23 mouth ity of (PREMARIN 00:00: daily. [place] ORAL) 00 MD Gian payton [facility] estrogens, 2018-07 Yes Take by Univ ers conjugated 0-23 mouth ity of (PREMARIN 00:00: daily. [place] ORAL) 00 MD Gian payton [facility] estrogens, 2018-07 Yes Take by Univ ers conjugated 0-23 mouth ity of (PREMARIN 00:00: daily. [place] ORAL) 00 MD [facility] tata [facility] estrogens, 2018-07 Yes Take by Univ ers conjugated 0-23 mouth ity of (PREMARIN 00:00: daily. [place] ORAL) 00 [facility] estrogens, 2018-07 Yes Take by Univ ers conjugated 0-23 mouth ity of (PREMARIN 00:00: daily. [place] ORAL) 00 MD Gian payton [facility] estrogens, 2018-07 Yes Take by Univ ers conjugated 0-23 mouth ity of (PREMARIN 00:00: daily. [place] ORAL) 00 MD Gian payton [facility] estrogens, 2018-07 Yes Take by Univ ers conjugated 0-23 mouth ity of (PREMARIN 00:00: daily. [place] ORAL) 00 MD [facility] tata [facility] estrogens, 2018-07 Yes Take by Univ ers conjugated 0-23 mouth ity of (PREMARIN 00:00: daily. [place] ORAL) 00 MD Gian payton [facility] estrogens, 2018-07 Yes Take by Univ ers conjugated 0-23 mouth ity of (PREMARIN 00:00: daily. [place] ORAL) 00 MD Gian payton [facility] estrogens, 2018-07 Yes Take by Univ ers conjugated 0-23 mouth ity of (PREMARIN 00:00: daily. [place] ORAL) 00 [facility] Estradiol Estradiol 2018-07 Yes Kaywin 1 tablet Common 0-01 [facility] 00:00: - [facility] 00 [facility] citalopram 2017- Yes Univers (CeleXA) 40 9-10 ity of mg tablet 00:00: [place] 00 MD Springer [facility] citalopram 2017- Yes Univers (CeleXA) 40 9-10 ity of mg tablet 00:00: [place] 00 MD [place] [facility] 0 Yes Univers (CeleXA) 40 9-10 ity of mg tablet 00:00: [facility] Yes Univers (CeleXA) 40 9-10 ity of mg tablet 00:00: [facility] 0 Yes Univers (CeleXA) 40 9-10 ity of mg tablet 00:00: [facility] Yes Univers (CeleXA) 40 9-10 ity of mg tablet 00:00: [facility] Yes Univers (CeleXA) 40 9-10 ity of mg tablet 00:00: [place] [facility] 0 Yes Univers (CeleXA) 40 9-10 ity of mg tablet 00:00: [place] MD Gian payton [facility] 0 Yes Univers (CeleXA) 40 9-10 ity of mg tablet 00:00: [place] [facility] 0 Yes Univers (CeleXA) 40 9-10 ity of mg tablet 00:00: [place] [facility] 0 Yes Univers (CeleXA) 40 9-10 ity of mg tablet 00:00: [place] MD Gian payton [facility] 0 Yes Univers (CeleXA) 40 9-10 ity of mg tablet 00:00: [place] MD Gian payton [facility] citalopra 0 Yes Univers (CeleXA) 40 9-10 ity of mg tablet 00:00: MD Gian payton [facility] [id number] Yes Univers (CeleXA) 40 9-10 ity of mg tablet 00:00: [place] 00 MD Gian payton [facility] 0 Yes Univers (CeleXA) 40 9-10 ity of mg tablet 00:00: MD Gian payton [facility] 0 Yes Univers (CeleXA) 40 9-10 [...] [facility] levothyroxi 2010-0 Yes Univharitha s ne 175 mcg 8-10 ity of cap 00:00: [place] 00 MD [facility] levothyroxi 2010-0 Yes Univharitha s ne 175 mcg 8-10 ity of cap 00:00: [place] 00 MD [facility] levothyroxi 2010-0 Yes Univharitha s ne 175 mcg 8-10 ity of cap 00:00: [place] 00 MD [facility] levothyroxi 2010-0 Yes Univharitha s ne 175 mcg 8-10 ity of cap 00:00: [place] 00 MD [facility] levothyroxi 2010-0 Yes Univer s ne 175 mcg 8-10 ity of cap 00:00: [place] 00 MD [facility] levothyroxi 2010-0 Yes Univharitha s ne 175 mcg 8-10 ity of [...] 8-10 ity of cap 00:00: [place] 00 [facility] levothyroxi 2010-0 Yes Univer s ne 175 mcg 8-10 ity of cap 00:00: 00 [facility] zolpidem 2006-0 Yes Univers (AMBIEN) 10 07-01 ity of mg tablet 00:00: [place] 00 [facility] zolpidem 2007-0 Yes Univers (AMBIEN) 10 07-01 ity of mg tablet 00:00: [place] 00 [facility] tata [facility] zolpidem 2007-0 Yes Univers (AMBIEN) 10 07-01 ity of mg tablet 00:00: 00 [facility] zolpidem 2006-0 Yes Univers (AMBIEN) 10 07-01 ity of mg tablet 00:00: 00 [facility] tata [facility] zolpidem 2006-0 Yes Univers (AMBIEN) 10 07-01 ity of mg tablet 00:00: [place] 00 [facility] zolpidem 2007-0 Yes Univers (AMBIEN) 10 07-01 ity of mg tablet 00:00: [place] 00 [facility] zolpidem 2007-0 Yes Univers (AMBIEN) 10 07-01 ity of mg tablet 00:00: [place] 00 [facility] zolpidem 2006-0 Yes Univers (AMBIEN) 10 07-01 ity of mg tablet 00:00: [place] 00 [facility] zolpidem 2007-0 Yes Univers (AMBIEN) 10 07-01 ity of mg tablet 00:00: [place] 00 [facility] zolpidem 2007-0 Yes Univers (AMBIEN) 10 07-01 ity of mg tablet 00:00: 00 [facility] zolpidem 2007-0 Yes Univers (AMBIEN) 10 07-01 ity of mg tablet 00:00: [place] 00 [facility] zolpidem 2007-0 Yes Univers (AMBIEN) 10 07-01 ity of mg tablet 00:00: [place] 00 MD Gian payton [facility] zolpidem 2007-0 Yes Univers (AMBIEN) 10 07-01 ity of mg tablet 00:00: [place] 00 MD [facility] zolpidem Yes [facility] 10 07-01 ity of mg tablet 00:00: [place] MD [facility] zolpidem Yes Univers [facility] 10 07-01 ity of mg tablet 00:00: [place] 00 MD [facility] zolpidem Yes Univers ([facility]) 10 07-01 ity of mg tablet 00:00: [...] C [facility] conjugated conjugated Gutierrez es (JAIL) 1.25 (JAIL) 1.25 Mem oria MG Oral MG Oral [...] [facility] conjugated conjugated daily Olamide kes (JAIL) 1.25 (JAIL) 1.25 Mem oria MG Oral MG Oral l Tablet Tablet (LUF/LI V/SA) levothyroxi levothyroxi Yes 150ug 1xD orally [facility] ne ne daily [facility] (LUF/LI V/SA) Celexa Celexa Yes Kaywin 1 tablet Commo n Aiden [facility] Levothyroxi Levothyroxi Yes y 1 tablet Common ne Sodium ne Sodium Aiden on an Sp karla empty - [facility]I stomach in [facility] Estradiol Estradiol Yes Kay 1 patch to Common Aiden skin [facility] Promethazin Promethazin No 1{table Promethazi e HCl 25 mg e HCl 25 mg t_as_ne ne HCl 25 eded} mg Estradiol Estradiol No 1{patch Estradiol 0.1 MG/24HR 0.1 MG/24HR _to_ski 0.1 n} MG/24HR Celexa 40 Celexa 40 No 1{table QD Celexa 40 MG MG t} MG Niantic Niantic No 1{table QID [place] 7.5-325 MG 7.5-325 MG t_as_ne 7.5-325 MG [...] Sodium 150 MCG 150 MCG 150 MCG Niantic Niantic No 1{table QID [place] 7.5-325 MG 7.5-325 MG t_as_ne 7.5-325 MG eded} Promethazin Promethazin No 1{table Promethazi e HCl 25 mg e HCl 25 mg t_as_ne ne HCl 25 eded} mg Estradiol Estradiol No 1{patch Estradiol 0.1 MG/24HR 0.1 MG/24HR _to_ski 0.1 n} MG/24HR Premarin Premarin No 1{table QD Premarin 1.25 MG 1.25 MG t} 1.25 MG Niantic Niantic No 1{table QID [place] 7.5-325 MG 7.5-325 MG t_as_ne 7.5-325 MG [...] 1.25 MG 1.25 MG t} 1.25 MG Niantic Niantic No 1{table QID [place] 7.5-325 MG 7.5-325 MG t_as_ne 7.5-325 MG [...] [facility] dose seasonal, dose seasonal, 00:00:00 Sim al preservative-free preservative-free (LUF/DAVID/SA) Influenza, 2011-03-30 Completed University of Unspecified 00:00:00 [place] MD [facility] Tdap 2011-03-30 Completed University of 00:00:00 [place] MD [facility] Influenza, 2011-03-30 Completed University of Unspecified 00:00:00 [place] [facility] 2011-03-30 Completed University of 00:00:00 [place] [facility] Influenza, 2011-03-30 Completed University of Unspecified 00:00:00 [place] [facility] 2011-03-30 Completed University of 00:00:00 [place] [facility] Influenza, 2011-03-30 Completed University of Unspecified 00:00:00 [place] [facility] 2011-03-30 Completed University of 00:00:00 [place] [facility] Influenza, 2011-03-30 Completed University of Unspecified 00:00:00 [place] [facility] 2011-03-30 Completed University of 00:00:00 [place] [facility] Influenza, 2011-03-30 Completed University of Unspecified 00:00:00 [place] [facility] 2011-03-30 Completed University of 00:00:00 [place] [facility] Influenza, 2011-03-30 Completed University of Unspecified 00:00:00 [place] Alfonso [facility] Tdap 2011-03-30 Completed University of 00:00:00 [place] [facility] Influenza, 2011-03-30 Completed University of Unspecified 00:00:00 [place] [facility] 2011-03-30 Completed University of 00:00:00 [place] [facility] Influenza, 2011-03-30 Completed University of Unspecified 00:00:00 [place] [facility] T[facility] 2011-03-30 Completed University of 00:00:00 [place] [facility] Influenza, 2011-03-30 Completed University of Unspecified 00:00:00 [place] Alfonso [facility] Tdap 2011-03-30 Completed University of 00:00:00 [place] [facility] Influenza, 2011-03-30 Completed University of Unspecified 00:00:00 [place] [facility] 2011-03-30 Completed University of 00:00:00 [place] [facility] Influenza, 2011-03-30 Completed University of Unspecified 00:00:00 [place] MD [facility] Tdap 2011-03-30 Completed University of 00:00:00 [place] Olvin banuelos [facility] Influenza, 2011-03-30 Completed University of Unspecified 00:00:00 [place] Alfonso hazel [facility] Tdap 2011-03-30 Completed University of 00:00:00 [place] Olvin banuelos [facility] Influenza, 2011-03-30 Completed University of Unspecified 00:00:00 [place] Alfonso hazel [facility] Tdap 2011-03-30 Completed University of 00:00:00 [place] Olvin banuelos [facility] Influenza, 2011-03-30 Completed University of Unspecified 00:00:00 [place] Alfonso hazel [facility] Tdap 2011-03-30 Completed University of 00:00:00 [place] Olvin banuelos [facility] Influenza, 2011-03-30 Completed University of Unspecified 00:00:00 [place] Alfonso hazel [facility] Tdap 2011-03-30 Completed University of 00:00:00 [place] Olvin [facility] Influenza (IM) 2009-04-05 Completed [...] 23:28:00 132 mm[Hg] Univer sity of pressure [facility] Diastolic blood 2022-06-13 23:28:00 83 mm[Hg] Unive rsity of pressure [facility] Heart rate 2022-06-13 23:28:00 107 /min General acute hospital Body temperature 2022-06-13 23:28:[address] [facility] ersity of [facility] Respiratory rate 2022-06-13 23:28:00 16 /min [facility] Body height 2022-06-13 23:28:00 162.6 cm General acute hospital Body weight 2022-06-13 23:28:00 102.15 kg General acute hospital BMI 2022-06-13 23:28:00 38.66 kg/m2 General acute hospital Oxygen saturation in 2022-06-13 23:28:00 96 /min [place] of Arterial blood by [facility] Pulse oximetry Branch Systolic blood 2022-05-07 14:46:22 138 mm[Hg] Univer sity of pressure [facility] Diastolic blood 2022-05-07 14:46:22 88 mm[Hg] Unive rsity of pressure [facility] Heart rate 2022-05-07 14:46:22 89 /min Universi ty of [facility] Respiratory rate 2022-05-07 14:46:22 20 /min [facility] Oxygen saturation in 2022-05-07 14:46:22 98 /min University of Arterial blood by [facility] Pulse oximetry Branch Body temperature 2022-05-07 14:07:33 37 Ericka Univ [facility] Body height 2022-05-07 13:56:00 162.6 cm [facility] Body weight 2022-05-07 13:56:00 108.863 kg [facility] BMI 2022-05-07 13:56:00 41.20 kg/m2 [facility] Systolic blood 2022-02-19 14:13:00 156 mm[Hg] Univer sity of [facility] Diastolic blood 2022-02-19 14:13:00 94 mm[Hg] Unive rsity of pressure [facility] Heart rate 2022-02-19 14:13:00 111 /min [facility] Body temperature 2022-02-19 14:13:00 37.11 Ericka Univ [facility] Respiratory rate 2022-02-19 14:13:00 22 /min Univ [facility] Body height 2022-02-19 14:13:00 162.6 cm [facility] Body weight 2022-02-19 14:13:00 104.327 kg [facility] BMI 2022-02-19 14:13:00 39.48 kg/m2 [facility] Oxygen saturation in 2022-02-19 14:13:00 99 /min University of Arterial blood by [facility] Pulse oximetry Branch Systolic blood 2021-11-29 22:40:00 116 mm[Hg] Univer sity of pressure [facility] Diastolic blood 2021-11-29 22:40:00 85 mm[Hg] Unive rsity of pressure [facility] Heart rate 2021-11-29 22:40:00 87 /min [facility] Body temperature 2021-11-29 22:40:00 37.28 Ericka Univ [facility] Respiratory rate 2021-11-29 22:40:00 16 /min Univ [facility] Body height 2021-11-29 22:40:00 162.6 cm [facility] Body weight 2021-11-29 22:40:00 103.874 kg [facility] BMI 2021-11-29 22:40:00 39.31 kg/m2 General acute hospital Oxygen saturation in 2021-11-29 22:40:00 98 /min [facility] of Arterial blood by [facility] Pulse oximetry Branch Height 2021-04-23 00:58:00 162.56 [...] Center Heart rate 2021-10-26 15:16:33 92 /min [facility] Respiratory rate 2021-10-26 15:16:33 16 /min [facility] MD Chan on [facility] Oxygen saturation in 2021-10-26 15:16:33 98 /min [facility] blood by Jeffrey muñoz Pulse oximetry [facility] Body Temperature 2021-04-23 00:58:00 97.8 [degF] [facility] (LUF/DAVID/SA) Pulse Rate 2021-04-23 00:58:00 116 /min [facility] (LUF/DAVID/SA) Respiratory Rate 2021-04-23 00:58:00 18 /min [facility] (LUF/DAVID/SA) O2% BldC Oximetry 2021-04-23 00:58:00 99 % [facility] (LUF/DAVID/SA) BP Systolic 2021-04-23 00:58:00 111 mm[Hg] [facility] (LUF/DAVID/SA) BP Diastolic 2021-04-23 00:58:00 77 mm[Hg] [facility] (LUF/DAVID/SA) Height 2021-04-23 00:58:00 64 [in_i] [facility] (F/DAVID/SA) Weight 2021-04-23 00:58:00 105.1 kg [facility] (LUF/DAVID/SA) BMI (Body Mass 2021-04-23 00:58:00 40 kg/m2 [facility] (LUF/DAVID/SA) Body Temperature 2021-03-24 10:53:00 98.6 [degF] [facility] (LUF/DAVID/SA) Pulse Rate 2021-03-24 10:53:00 87 /min [facility] (LUF/DAVID/SA) Respiratory Rate 2021-03-24 10:53:00 18 /min [facility] (LUF/DAVID/SA) O2% BldC Oximetry 2021-03-24 10:53:00 97 % [facility] (LUF/DAVID/SA) BP Systolic 2021-03-24 10:53:00 120 mm[Hg] [facility] (LUF/DAVID/SA) BP Diastolic 2021-03-24 10:53:00 86 mm[Hg] [facility] (LUF/DAVID/SA) Height 2021-03-24 10:53:00 64 [in_i] [facility] (LUF/DAVID/SA) Weight 2021-03-24 10:53:00 105 kg [facility] (LUF/DAVID/SA) BMI (Body Mass 2021-03-24 10:53:00 40 kg/m2 [facility] f[facility] Index) [facility] (LUF/DAVID/SA) Body Temperature 2021-03-10 10:55:00 98.4 [degF] [facility] (LUF/DAVID/SA) Pulse Rate 2021-03-10 10:55:00 85 /min [facility] (LUF/DAVID/SA) Respiratory Rate 2021-03-10 10:55:00 20 /min [facility] (LUF/DAVID/SA) O2% BldC Oximetry 2021-03-10 10:55:00 100 % [facility] (LUF/DAVID/SA) BP Systolic 2021-03-10 10:55:00 140 mm[Hg] [facility] (LUF/DAVID/SA) BP Diastolic 2021-03-10 10:55:00 98 mm[Hg] [facility] (LUF/DAVID/SA) Height 2021-03-10 10:55:00 64 [in_i] [facility] (LUF/DAVID/SA) Weight 2021-03-10 10:55:00 105.2 kg [facility] (LUF/DAVID/SA) BMI (Body Mass 2021-03-10 10:55:00 40 kg/m2 [facility] f[facility] Index) [facility] (LUF/DAVID/SA) Pulse Rate 2021-02-23 12:32:00 67 /min [facility] (LUF/DAVID/SA) O2% BldC Oximetry 2021-02-23 12:32:00 98 % [facility] (LUF/DAVID/SA) BP Systolic 2021-02-23 12:32:00 112 mm[Hg] [facility] (LUF/DAVID/SA) BP Diastolic 2021-02-23 12:32:00 70 mm[Hg] [facility] (LUF/DAVID/SA) Heart Rate 2021-02-23 11:16:00 64 /min [facility] (LUF/DAVID/SA) Respiratory Rate 2021-02-23 11:16:00 14 /min [facility] (LUF/DAVID/SA) Body Temperature 2021-02-23 08:24:00 98.1 [degF] [facility] (LUF/DAVID/SA) Height 2021-02-23 08:24:00 64 [in_i] [facility] (F/DAVID/SA) Weight 2021-02-23 08:24:00 110 kg [facility] (LUF/DAVID/SA) BMI (Body Mass 2021-02-23 08:24:00 41.9 kg/m2 [facility] (LUF/DAVID/SA) Heart Rate 2021-01-10 01:46:00 93 /min [facility] (LUF/DAVID/SA) Pulse Rate 2021-01-10 01:46:00 95 /min [facility] (LUF/DAVID/SA) Respiratory Rate 2021-01-10 01:46:00 16 /min [facility] (LUF/DAVID/SA) O2% BldC Oximetry 2021-01-10 01:46:00 97 % [facility] (LUF/DAVID/SA) BP Systolic 2021-01-10 01:46:00 103 mm[Hg] [facility] (LUF/DAVID/SA) BP Diastolic 2021-01-10 01:46:00 71 mm[Hg] [facility] (F/DAVID/SA) Weight 2021-01-10 00:53:00 102 kg [facility] (LUF/DAVID/SA) Body Temperature 2021-01-10 00:47:00 98.6 [degF] [facility] (LUF/DAVID/SA) Pulse Rate 2020-12-12 14:20:00 87 /min [facility] (LUF/DAVID/SA) O2% BldC Oximetry 2020-12-12 14:20:00 98 % [facility] (LUF/DAVID/SA) BP Systolic 2020-12-12 14:20:00 128 mm[Hg] [facility] (LUF/DAVID/SA) BP Diastolic 2020-12-12 14:20:00 86 mm[Hg] [facility] (LUF/DAVID/SA) Body Temperature 2020-12-12 12:39:00 98.9 [degF] [facility] (LUF/DAVID/SA) Respiratory Rate 2020-12-12 12:39:00 20 /min [facility] (LUF/DAVID/SA) Weight 2020-12-12 12:39:00 102 kg [facility] (LUF/DAVID/SA) Body Temperature 2020-12-08 10:27:00 98.6 [degF] [facility] (LUF/DAVID/SA) Pulse Rate 2020-12-08 10:27:00 79 /min [facility] (LUF/DAVID/SA) Respiratory Rate 2020-12-08 10:27:00 16 /min [facility] (LUF/DAVID/SA) O2% BldC Oximetry 2020-12-08 10:27:00 99 % [facility] (LUF/DAVID/SA) BP Systolic 2020-12-08 10:27:00 111 mm[Hg] [facility] (LUF/DAVID/SA) BP Diastolic 2020-12-08 10:27:00 57 mm[Hg] [facility] (LUF/DAVID/SA) Weight 2020-12-08 10:27:00 103 kg [facility] (LUF/DAVID/SA) Body Temperature 2020-11-25 00:27:00 97.9 [degF] [facility] (LUF/DAVID/SA) Pulse Rate 2020-11-25 00:27:00 82 /min [facility] (LUF/DAVID/SA) Respiratory Rate 2020-11-25 00:27:00 17 /min [facility] (LUF/DAVID/SA) O2% BldC Oximetry 2020-11-25 00:27:00 98 % [facility] (LUF/DAVID/SA) BP Systolic 2020-11-25 00:27:00 109 mm[Hg] [facility] (LUF/DAVID/SA) BP Diastolic 2020-11-25 00:27:00 62 mm[Hg] [facility] (LUF/DAVID/SA) Heart Rate 2020-11-21 09:30:00 75 /min [facility] (LUF/DAIVD/SA) Respiratory Rate 2020-11-21 09:30:00 14 /min [facility] (LUF/DAVID/SA) BP Systolic 2020-11-21 09:30:00 120 mm[Hg] [facility] (LUF/DAVID/SA) BP Diastolic 2020-11-21 09:30:00 76 mm[Hg] [facility] (F/DAVID/SA) Body Temperature 2020-11-21 07:15:00 98.1 [degF] [facility] (LUF/DAVID/SA) Pulse Rate 2020-11-21 07:15:00 103 /min [facility] (F/DAVID/SA) O2% BldC Oximetry 2020-11-21 07:15:00 100 % [facility] (F/DAVID/SA) Height 2020-11-21 07:15:00 64 [in_i] [facility] (F/DAVID/SA) Weight 2020-11-21 07:15:00 103.1 kg [facility] (F/DAVID/SA) BMI (Body Mass 2020-11-21 07:15:00 39.2 kg/m2 [facility] (LUF/DAVID/SA) Heart Rate 2020-11-14 13:30:00 69 /min [facility] (F/DAVID/SA) Pulse Rate 2020-11-14 13:30:00 70 /min [facility] (F/DAVID/SA) Respiratory Rate 2020-11-14 13:30:00 10 /min [facility] (F/DAVID/SA) O2% BldC Oximetry 2020-11-14 13:30:00 96 % [facility] (LUF/DAVID/SA) BP Systolic 2020-11-14 13:30:00 103 mm[Hg] [facility] (LUF/DAVID/SA) BP Diastolic 2020-11-14 13:30:00 77 mm[Hg] [facility] (F/DAVID/SA) Body Temperature 2020-11-14 09:47:00 97.4 [degF] [facility] (F/DAVID/SA) Weight 2020-11-14 09:47:00 103 kg [facility] (LUF/DAVID/SA) Body Temperature 2020-11-08 08:32:00 98.1 [degF] [facility] (F/DAVID/SA) Pulse Rate 2020-11-08 08:32:00 82 /min [facility] (F/DAVID/SA) Respiratory Rate 2020-11-08 08:32:00 20 /min [facility] (F/DAVID/SA) O2% BldC Oximetry 2020-11-08 08:32:00 100 % [facility] (F/DAVID/SA) BP Systolic 2020-11-08 08:32:00 129 mm[Hg] [facility] (LUF/DAVID/SA) BP Diastolic 2020-11-08 08:32:00 72 mm[Hg] [facility] (F/DAVID/SA) Height 2020-11-08 08:32:00 64 [in_i] [facility] (F/DAVID/SA) Weight 2020-11-08 08:32:00 103.1 kg [facility] (F/DAVID/SA) BMI (Body Mass 2020-11-08 08:32:00 39.2 kg/m2 [facility] (F/DAVID/SA) Body Temperature 2020-11-01 00:58:00 98.7 [degF] [facility] (F/DAVID/SA) Pulse Rate 2020-11-01 00:58:00 104 /min [facility] (LUF/DAVID/SA) Respiratory Rate 2020-11-01 00:58:00 20 /min [facility] (LUF/DAVID/SA) O2% BldC Oximetry 2020-11-01 00:58:00 99 % [facility] (LUF/DAVID/SA) BP Systolic 2020-11-01 00:58:00 133 mm[Hg] [facility] (LUF/DAVID/SA) BP Diastolic 2020-11-01 00:58:00 101 mm[Hg] [facility] (LUF/DAVID/SA) Height 2020-11-01 00:53:00 65 [in_i] [facility] (LUF/DAVID/SA) Weight 2020-11-01 00:53:00 103 kg [facility] (LUF/DAVID/SA) BMI (Body Mass 2020-11-01 00:53:00 37.8 kg/m2 [facility] f[place] Index) [facility] (LUF/DAVID/SA) Body Temperature 2020-10-04 23:51:00 98 [degF] [facility] (LUF/DAVID/SA) Pulse Rate 2020-10-04 23:51:00 96 /min [facility] (F/DAVID/SA) Respiratory Rate 2020-10-04 23:51:00 20 /min [facility] (LUF/DAVID/SA) O2% BldC Oximetry 2020-10-04 23:51:00 98 % [facility] (LUF/DAVID/SA) BP Systolic 2020-10-04 23:51:00 125 mm[Hg] [facility] (LUF/DAVID/SA) BP Diastolic 2020-10-04 23:51:00 73 mm[Hg] [facility] (LUF/DAVID/SA) Height 2020-10-04 23:47:00 65 [in_i] [facility] (F/DAVID/SA) Weight 2020-10-04 23:47:00 102.6 kg [facility] (LUF/DAVID/SA) BMI (Body Mass 2020-10-04 23:47:00 37.6 kg/m2 [facility] Index) [facility] (LUF/DAVID/SA) Body Temperature 2020-09-18 01:44:00 98.3 [degF] [facility] (LUF/DAVID/SA) Pulse Rate 2020-09-18 01:44:00 116 /min [facility] (LUF/DAVID/SA) Respiratory Rate 2020-09-18 01:44:00 20 /min [facility] (LUF/DAVID/SA) O2% BldC Oximetry 2020-09-18 01:44:00 99 % [facility] (LUF/DAVID/SA) BP Systolic 2020-09-18 01:44:00 127 mm[Hg] [facility] (LUF/DAVID/SA) BP Diastolic 2020-09-18 01:44:00 83 mm[Hg] [facility] (LUF/DAVID/SA) Height 2020-09-18 01:40:00 64 [in_i] [facility] (F/DAVID/SA) Weight 2020-09-18 01:40:00 102.8 kg [facility] (LUF/DAVID/SA) BMI (Body Mass 2020-09-18 01:40:00 39.1 kg/m2 [facility] (LUF/DAVID/SA) Pulse Rate 2020-09-12 02:16:00 88 /min [facility] (LUF/DAVID/SA) O2% BldC Oximetry 2020-09-12 02:16:00 98 % [facility] (LUF/DAVID/SA) BP Systolic 2020-09-12 02:16:00 113 mm[Hg] [facility] (LUF/DAVID/SA) BP Diastolic 2020-09-12 02:16:00 64 mm[Hg] [facility] (LUF/DAVID/SA) Body Temperature 2020-09-12 00:56:00 97.9 [degF] [facility] (LUF/DAVID/SA) Respiratory Rate 2020-09-12 00:56:00 18 /min [facility] (LUF/DAVID/SA) Height 2020-09-12 00:50:00 65 [in_i] [facility] (LUF/DAVID/SA) Weight 2020-09-12 00:50:00 104.5 kg [facility] (LUF/DAVID/SA) BMI (Body Mass 2020-09-12 00:50:00 38.3 kg/m2 [facility]) [facility] (LUF/DAVID/SA) Pulse Rate 2020-08-22 03:16:00 100 /min [facility] (LUF/DAVID/SA) O2% BldC Oximetry 2020-08-22 03:16:00 95 % [facility] (LUF/DAVID/SA) BP Systolic 2020-08-22 03:16:00 129 mm[Hg] [facility] (LUF/DAVID/SA) BP Diastolic 2020-08-22 03:16:00 88 mm[Hg] [facility] (LUF/DAVID/SA) Body Temperature 2020-08-22 01:35:00 98.4 [degF] [facility] (LUF/DAVID/SA) Respiratory Rate 2020-08-22 01:35:00 20 /min [facility] (F/DAVID/SA) Height 2020-08-22 01:35:00 64 [in_i] [facility] (LUF/DAVID/SA) Weight 2020-08-22 01:35:00 102 kg [facility] (LUF/DAVID/SA) BMI (Body Mass 2020-08-22 01:35:00 38.8 kg/m2 [facility]) [facility] (LUF/DAVID/SA) Pulse Rate 2020-08-06 03:31:00 83 /min [facility] (LUF/DAVID/SA) O2% BldC Oximetry 2020-08-06 03:31:00 96 % [facility] (LUF/DAVID/SA) BP Systolic 2020-08-06 03:31:00 127 mm[Hg] [facility] (LUF/DAVID/SA) BP Diastolic 2020-08-06 03:31:00 82 mm[Hg] [facility] (LUF/DAVID/SA) Body Temperature 2020-08-06 01:45:00 98 [degF] [facility] (LUF/DAVID/SA) Respiratory Rate 2020-08-06 01:45:00 20 /min [facility] (LUF/DAVID/SA) Height 2020-08-06 01:39:00 66 [in_i] [facility] (LUF/DAVID/SA) Weight 2020-08-06 01:39:00 104.2 kg [facility] (LUF/DAVID/SA) BMI (Body Mass 2020-08-06 01:39:00 37.3 kg/m2 [facility] (LUF/DAVID/SA) Pulse Rate 2020-07-19 11:16:00 67 /min [facility] (LUF/DAVID/SA) O2% BldC Oximetry 2020-07-19 11:16:00 94 % [facility] (F/DAVID/SA) BP Systolic 2020-07-19 11:16:00 101 mm[Hg] [facility] (LUF/DAVID/SA) BP Diastolic 2020-07-19 11:16:00 63 mm[Hg] [facility] (LUF/DAVID/SA) Body Temperature 2020-07-19 07:50:00 98 [degF] [facility] (LUF/DAVID/SA) Respiratory Rate 2020-07-19 07:50:00 18 /min [facility] (F/DAVID/SA) Weight 2020-07-19 07:50:00 100 kg [facility] (LUF/DAVID/SA) Heart Rate 2020-07-05 04:46:00 80 /min [facility] (LUF/DAVID/SA) Respiratory Rate 2020-07-05 04:46:00 15 /min [facility] (LUF/DAVID/SA) BP Systolic 2020-07-05 04:46:00 134 mm[Hg] [facility] (LUF/DAVID/SA) BP Diastolic 2020-07-05 04:46:00 60 mm[Hg] [facility] (LUF/DAVID/SA) Body Temperature 2020-07-05 02:57:00 98 [degF] [facility] (LUF/DAVID/SA) Pulse Rate 2020-07-05 02:57:00 82 /min [facility] (LUF/DAVID/SA) O2% BldC Oximetry 2020-07-05 02:57:00 99 % [facility] (LUF/DAVID/SA) Height 2020-07-05 02:50:00 65 [in_i] [facility] (LUF/DAVID/SA) Weight 2020-07-05 02:50:00 102.1 kg [facility] (LUF/DAVID/SA) BMI (Body Mass 2020-07-05 02:50:00 37.5 kg/m2 [facility]) [facility] (LUF/DAVID/SA) Body Temperature 2020-06-07 13:38:00 98.5 [degF] [facility] (LUF/DAVID/SA) Pulse Rate 2020-06-07 13:38:00 95 /min [facility] (LUF/DAVID/SA) Respiratory Rate 2020-06-07 13:38:00 20 /min [facility] (LUF/DAVID/SA) O2% BldC Oximetry 2020-06-07 13:38:00 97 % [facility] (LUF/DAVID/SA) BP Systolic 2020-06-07 13:38:00 129 mm[Hg] [facility] (LUF/DAVID/SA) BP Diastolic 2020-06-07 13:38:00 73 mm[Hg] [facility] (LUF/DAVID/SA) Height 2020-06-07 13:38:00 64 [in_i] [facility] (LUF/DAVID/SA) Weight 2020-06-07 13:38:00 99.79 kg [facility] (LUF/DAVID/SA) BMI (Body Mass 2020-06-07 13:38:00 38 kg/m2 [facility]) [facility] (LUF/DAVID/SA) Body Temperature 2020-05-31 09:45:00 99.6 [degF] [facility] (LUF/DAVID/SA) Pulse Rate 2020-05-31 09:45:00 86 /min [facility] (LUF/DAVID/SA) Respiratory Rate 2020-05-31 09:45:00 18 /min [facility] (LUF/DAVID/SA) O2% BldC Oximetry 2020-05-31 09:45:00 98 % [facility] (LUF/DAVID/SA) BP Systolic 2020-05-31 09:45:00 118 mm[Hg] [facility] (LUF/DAVID/SA) BP Diastolic 2020-05-31 09:45:00 78 mm[Hg] [facility] (LUF/DAVID/SA) Height 2020-05-31 09:45:00 64 [in_i] [facility] (LUF/DAVID/SA) Weight 2020-05-31 09:45:00 99.79 kg [facility] (LUF/DAVID/SA) BMI (Body Mass 2020-05-31 09:45:00 38 kg/m2 [facility] (LUF/DAVID/SA) Heart Rate 2020-04-25 20:01:00 69 /min [facility] (LUF/DAVID/SA) Pulse Rate 2020-04-25 20:01:00 71 /min [facility] (LUF/DAVID/SA) Respiratory Rate 2020-04-25 20:01:00 18 /min [facility] (LUF/DAVID/SA) O2% BldC Oximetry 2020-04-25 20:01:00 100 % [facility] (LUF/DAVID/SA) BP Systolic 2020-04-25 20:01:00 126 mm[Hg] [facility] (LUF/DAVID/SA) BP Diastolic 2020-04-25 20:01:00 86 mm[Hg] [facility] (LUF/DAVID/SA) Body Temperature 2020-04-25 16:50:00 98.4 [degF] [facility] (LUF/DAVID/SA) Height 2020-04-25 16:50:00 64 [in_i] [facility] (LUF/DAVID/SA) Weight 2020-04-25 16:50:00 220 [lb_av] [facility] (LUF/DAVID/SA) BMI (Body Mass 2020-04-25 16:50:00 38 kg/m2 [facility]) [facility] (LUF/DAVID/SA) Heart Rate 2020-03-20 18:18:00 112 /min [facility] (LUF/DAVID/SA) Pulse Rate 2020-03-20 18:16:00 93 /min [facility] (LUF/DAVID/SA) O2% BldC Oximetry 2020-03-20 18:16:00 92 % [facility] (LUF/DAVID/SA) BP Systolic 2020-03-20 18:16:00 127 mm[Hg] [facility] (LUF/DAVID/SA) BP Diastolic 2020-03-20 18:16:00 85 mm[Hg] [facility] (LUF/DAVID/SA) Body Temperature 2020-03-20 17:17:00 99.2 [degF] [facility] (LUF/DAVID/SA) Respiratory Rate 2020-03-20 17:17:00 19 /min [facility] (LUF/DAVID/SA) Height 2020-03-20 17:17:00 64 [in_i] [facility] (LUF/DAVID/SA) Weight 2020-03-20 17:17:00 106.9 kg [facility] (LUF/DAVID/SA) BMI (Body Mass 2020-03-20 17:17:00 40.7 kg/m2 [facility]) [facility] (LUF/DAVID/SA) Respiratory Rate 2020-03-17 10:33:00 16 /min [facility] (LUF/DAVID/SA) Body Temperature 2020-03-17 07:54:00 97.9 [degF] [facility] (LUF/DAVID/SA) Pulse Rate 2020-03-17 07:54:00 83 /min [facility] (LUF/DAVID/SA) O2% BldC Oximetry 2020-03-17 07:54:00 96 % [facility] (LUF/DAVID/SA) BP Systolic 2020-03-17 07:54:00 107 mm[Hg] [facility] (LUF/DAVID/SA) BP Diastolic 2020-03-17 07:54:00 75 mm[Hg] [facility] (LUF/DAVID/SA) Weight 2020-03-17 00:09:00 105.6 kg [facility] (LUF/DAVID/SA) Heart Rate 2020-03-13 15:46:00 81 /min [facility] (LUF/DAVID/SA) Height 2020-03-13 15:31:00 64 [in_i] [facility] (LUF/DAVID/SA) Body Temperature 2020-03-02 15:20:00 98.6 [degF] [facility] (LUF/DAVID/SA) Pulse Rate 2020-03-02 15:20:00 86 /min [facility] (LUF/DAVID/SA) Respiratory Rate 2020-03-02 15:20:00 18 /min [facility] (LUF/DAVID/SA) O2% BldC Oximetry 2020-03-02 15:20:00 99 % [facility] (LUF/DAVID/SA) BP Systolic 2020-03-02 15:20:00 131 mm[Hg] [facility] (LUF/DAVID/SA) BP Diastolic 2020-03-02 15:20:00 85 mm[Hg] [facility] (LUF/DAVID/SA) Height 2020-03-01 10:54:00 64 [in_i] [facility] (LUF/DAVID/SA) Weight 2020-03-01 10:54:00 102 kg [facility] (LUF/DAVID/SA) BMI (Body Mass 2020-03-01 10:54:00 38.8 kg/m2 [facility] (LUF/DAIVD/SA) Respiratory Rate 2020-02-27 07:47:00 16 /min [facility] (LUF/DAVID/SA) Body Temperature 2020-02-27 07:32:00 98.2 [degF] [facility] (LUF/DAVID/SA) Pulse Rate 2020-02-27 07:32:00 94 /min [facility] (LUF/DAVID/SA) O2% BldC Oximetry 2020-02-27 07:32:00 95 % [facility] (LUF/DAVID/SA) BP Systolic 2020-02-27 07:32:00 111 mm[Hg] [facility] (LUF/DAVID/SA) BP Diastolic 2020-02-27 07:32:00 56 mm[Hg] [facility] (LUF/DAVID/SA) Weight 2020-02-26 02:09:00 99.6 kg [facility] (LUF/DAVID/SA) Height 2020-02-25 10:03:00 64 [in_i] [facility] (LUF/DAVID/SA) Body Temperature 2020-02-25 00:52:00 97.9 [degF] [facility] (LUF/DAVID/SA) Pulse Rate 2020-02-25 00:52:00 118 /min [facility] (LUF/DAVID/SA) Respiratory Rate 2020-02-25 00:52:00 18 /min [facility] (LUF/DAVID/SA) O2% BldC Oximetry 2020-02-25 00:52:00 97 % [facility] (LUF/DAVID/SA) BP Systolic 2020-02-25 00:52:00 133 mm[Hg] [facility] (LUF/DAVID/SA) BP Diastolic 2020-02-25 00:52:00 67 mm[Hg] [facility] (LUF/DAVID/SA) Height 2020-02-25 00:47:00 64 [in_i] [facility] (LUF/DAVID/SA) Weight 2020-02-25 00:47:00 103.4 kg [facility] (LUF/DAVID/SA) BMI (Body Mass 2020-02-25 00:47:00 39.3 kg/m2 [facility] (LUF/DAVID/SA) Body Temperature 2020-01-25 11:32:00 98.4 [degF] [facility] (LUF/DAVID/SA) Pulse Rate 2020-01-25 11:32:00 81 /min [facility] (LUF/DAVID/SA) Respiratory Rate 2020-01-25 11:32:00 14 /min [facility] (LUF/DAVID/SA) O2% BldC Oximetry 2020-01-25 11:32:00 98 % [facility] (LUF/DAVID/SA) BP Systolic 2020-01-25 11:32:00 139 mm[Hg] [facility] (LUF/DAVID/SA) BP Diastolic 2020-01-25 11:32:00 89 mm[Hg] [facility] (LUF/DAVID/SA) Height 2020-01-25 11:32:00 64 [in_i] [facility] (LUF/DAVID/SA) Weight 2020-01-25 11:32:00 100.5 kg [facility] (LUF/DAVID/SA) BMI (Body Mass 2020-01-25 11:32:00 38.2 kg/m2 [facility] Index) [facility] (LUF/DAVID/SA) Heart Rate 2019-11-24 04:16:00 84 /min [facility] (LUF/DAVID/SA) Pulse Rate 2019-11-24 04:16:00 90 /min [facility] (LUF/DAVID/SA) Respiratory Rate 2019-11-24 04:16:00 26 /min [facility] (LUF/DAVID/SA) O2% BldC Oximetry 2019-11-24 04:16:00 98 % [facility] (LUF/DAVID/SA) BP Systolic 2019-11-24 04:16:00 106 mm[Hg] [facility] (LUF/DAVID/SA) BP Diastolic 2019-11-24 04:16:00 69 mm[Hg] [facility] (LUF/DAVID/SA) Body Temperature 2019-11-24 00:54:00 98.4 [degF] [facility] (LUF/DAVID/SA) Height 2019-11-24 00:49:00 65 [in_i] [facility] (LUF/DAVID/SA) Weight 2019-11-24 00:49:00 103 kg [facility] (LUF/DAVID/SA) BMI (Body Mass 2019-11-24 00:49:00 37.8 kg/m2 [facility] Index) [facility] (LUF/DAVID/SA) Heart Rate 2019-10-07 22:54:00 83 /min [facility] (LUF/DAVID/SA) Respiratory Rate 2019-10-07 22:54:00 14 /min [facility] (LUF/DAVID/SA) Pulse Rate 2019-10-07 22:31:00 89 /min [facility] (LUF/DAVID/SA) O2% BldC Oximetry 2019-10-07 22:31:00 97 % [facility] (LUF/DAVID/SA) BP Systolic 2019-10-07 21:16:00 127 mm[Hg] [facility] (LUF/DAVID/SA) BP Diastolic 2019-10-07 21:16:00 85 mm[Hg] [facility] (LUF/DAVID/SA) Height 2019-10-07 20:41:00 64 [in_i] [facility] (LUF/DAVID/SA) Weight 2019-10-07 20:41:00 100.2 kg [facility] (LUF/DAVID/SA) BMI (Body Mass 2019-10-07 20:41:00 38.1 kg/m2 [facility] (LUF/DAVID/SA) Pulse Rate 2019-09-20 04:16:00 96 /min [facility] (LUF/DAVID/SA) Respiratory Rate 2019-09-20 04:16:00 9 /min [facility] (LUF/DAVID/SA) O2% BldC Oximetry 2019-09-20 04:16:00 96 % [facility] (LUF/DAVID/SA) BP Systolic 2019-09-20 04:16:00 97 mm[Hg] [facility] (LUF/DAVID/SA) BP Diastolic 2019-09-20 04:16:00 76 mm[Hg] [facility] (LUF/DAVID/SA) Body Temperature 2019-09-20 00:44:00 98 [degF] [facility] (LUF/DAVID/SA) Height 2019-09-20 00:39:00 65 [in_i] [facility] (LUF/DAVID/SA) Weight 2019-09-20 00:39:00 101.9 kg [facility] (LUF/DAVID/SA) BMI (Body Mass 2019-09-20 00:39:00 37.4 kg/m2 [facility] Index) [facility] (LUF/DAVID/SA) Pulse Rate 2019-08-17 04:31:00 81 /min [facility] (LUF/DAVID/SA) Respiratory Rate 2019-08-17 04:31:00 13 /min [facility] (LUF/DAVID/SA) O2% BldC Oximetry 2019-08-17 04:31:00 97 % [facility] (LUF/DAVID/SA) BP Systolic 2019-08-17 04:31:00 136 mm[Hg] [facility] (LUF/DAVID/SA) BP Diastolic 2019-08-17 04:31:00 75 mm[Hg] [facility] (LUF/DAVID/SA) Body Temperature 2019-08-17 02:23:00 97.6 [degF] [facility] (F/DAVID/SA) Height 2019-08-17 02:19:00 64 [in_i] [facility] (LUF/DAVID/SA) Weight 2019-08-17 02:19:00 100.6 kg [facility] (LUF/DAVID/SA) BMI (Body Mass 2019-08-17 02:19:00 38.3 kg/m2 [facility]) [facility] (LUF/DAVID/SA) Pulse Rate 2018-12-07 02:33:00 79 /min [facility] (LUF/DAVID/SA) Respiratory Rate 2018-12-07 02:33:00 15 /min [facility] (F/DAVID/SA) O2% BldC Oximetry 2018-12-07 02:33:00 96 % [facility] (LUF/DAVID/SA) BP Systolic 2018-12-07 02:33:00 120 mm[Hg] [facility] (LUF/DAVID/SA) BP Diastolic 2018-12-07 02:33:00 76 mm[Hg] [facility] (LUF/DAVID/SA) Body Temperature 2018-12-07 01:10:00 98.2 F [facility] (LUF/DAVID/SA) Height 2018-12-07 01:10:00 64 in [facility] (LUF/DAVID/SA) Weight Measured 2018-12-07 01:10:00 218.25 lbs [facility] (LUF/DAVID/SA) BMI (Body Mass 2018-12-07 01:10:00 37.7 kg/m2 [facility]) [facility] (LUF/DAVID/SA) Pulse Rate 2018-09-30 19:40:00 70 /min [facility] (LUF/DAVID/SA) Respiratory Rate 2018-09-30 19:40:00 21 /min [facility] (LUF/DAVID/SA) O2% BldC Oximetry 2018-09-30 19:40:00 100 % [facility] (F/DAVID/SA) BP Systolic 2018-09-30 19:40:00 124 mm[Hg] [facility] (LUF/DAVID/SA) BP Diastolic 2018-09-30 19:40:00 88 mm[Hg] [facility] (LUF/DAVID/SA) Body Temperature 2018-09-30 19:23:00 99.3 F [facility] (F/DAVID/SA) Height 2018-09-30 19:23:00 66 in [facility] (F/DAVID/SA) Weight Measured 2018-09-30 19:23:00 212.52 lbs [facility] (LUF/DAVID/SA) BMI (Body Mass 2018-09-30 19:23:00 34.5 kg/m2 [facility]) [facility] (LUF/DAVID/SA) Body Temperature 2018-09-01 13:59:00 98 F [facility] (LUF/DAVID/SA) Pulse Rate 2018-09-01 12:15:00 74 /min [facility] (LUF/DAVID/SA) Respiratory Rate 2018-09-01 12:15:00 16 /min [facility] (F/DAVID/SA) O2% BldC Oximetry 2018-09-01 12:15:00 98 % [facility] (F/DAVID/SA) BP Systolic 2018-09-01 12:15:00 131 mm[Hg] [facility] (LUF/DAVID/SA) BP Diastolic 2018-09-01 12:15:00 78 mm[Hg] [facility] (LUF/DAVID/SA) Height 2018-09-01 09:16:00 64 in [facility] (F/DAVID/SA) Weight Measured 2018-09-01 09:16:00 214.24 lbs [facility] (LUF/DAVID/SA) BMI (Body Mass 2018-09-01 09:16:00 37 kg/m2 [facility]) [facility] (LUF/DAVID/SA) Body Temperature 2018-05-13 10:58:00 99 F [facility] (LUF/DAVID/SA) Pulse Rate 2018-05-13 10:58:00 97 /min [facility] (F/DAVID/SA) Respiratory Rate 2018-05-13 10:58:00 18 /min [facility] (F/DAVID/SA) O2% BldC Oximetry 2018-05-13 10:58:00 98 % [facility] (LUF/DAVID/SA) BP Systolic 2018-05-13 10:58:00 131 mm[Hg] [facility] (LUF/DAVID/SA) BP Diastolic 2018-05-13 10:58:00 88 mm[Hg] [facility] (LUF/DAVID/SA) Height 2018-05-13 10:58:00 64 in [facility] (LUF/DVAID/SA) Weight Measured 2018-05-13 10:58:00 207.23 lbs [facility] Abhinav [facility] (LUF/DAVID/SA) BMI (Body Mass 2018-05-13 10:58:00 35.8 [facility]) [facility] (LUF/DAVID/SA) Body Temperature 2017-12-24 08:04:00 98.7 F [facility] (F/DAVID/SA) Respiratory Rate 2017-12-24 08:04:00 18 /min [facility] (F/DAVID/SA) O2% BldC Oximetry 2017-12-24 08:04:00 98 % [facility] (LUF/DAVID/SA) BP Systolic 2017-12-24 08:04:00 126 mm[Hg] [facility] (LUF/DAVID/SA) BP Diastolic 2017-12-24 08:04:00 86 mm[Hg] [facility] (F/DAVID/SA) Weight Measured 2017-12-24 08:04:00 207.23 lbs [facility] (F/DAVID/SA) Body Temperature 2017-06-20 23:28:00 97.4 F [facility] (F/DAVID/SA) Respiratory Rate 2017-06-20 23:28:00 20 /min [facility] ([facility]/DAVID/SA) O2% BldC Oximetry 2017-06-20 23:28:00 99 % [facility] (F/DAVID/SA) BP Systolic 2017-06-20 23:28:00 107 mm[Hg] [facility] (F/DAVID/SA) BP Diastolic 2017-06-20 23:28:00 76 mm[Hg] [facility] ([facility]/DAVID/SA) Height 2017-06-20 23:28:00 64 in [facility] ([facility]/DAVID/SA) Weight Measured 2017-06-20 23:28:00 217.15 lbs [facility] (F/DAVID/SA) BMI (Body Mass 2017-06-20 23:28:00 37.5 [facility] (F/DAVID/SA) Procedures Procedure Date / Time Performing Clinician Source Performed POCT SARS-COV-2 ANTIGEN 2022-06-13 23:43:00 Magdalene Lucia [facility] (BINAX NOW) [facility] CT ABDOMEN PELVIS WO 2022-05-07 15:06:09 Ridge Pagan [facility] CONTRAST [facility] Branch BASIC METABOLIC PANEL (NA, 2022-05-07 14:20:00 Ridge Pagan U [facility] K, CL, CO2, GLUCOSE, BUN, Medica l Branch CREATININE, CA) CBC WITH DIFF 2022-05-07 14:20:00 Ridge Pagan [facility] URINALYSIS 2022-05-07 14:20:00 Ridge Pagan [facility] CONSENT/REFUSAL FOR 2022-05-07 13:49:51 Doctor Unassigned[facility] DIAGNOSIS AND TREATMENT [place] [facility] [place] [facility] ABDOMEN PELVIS WO 2022-02-19 15:49:34 [facility] LIPASE 2022-02-19 14:26:00 Trice Harris [facility] COMP. METABOLIC PANEL 2022-02-19 14:26:00 Trice Harris [facility] ([id number]) [facility] CBC WITH DIFF 2022-02-19 14:26:00 Trice Harris [facility] URINALYSIS 2022-02-19 14:26:00 Trice Harris [facility] CONSENT/REFUSAL FOR 2022-02-19 14:11:01 Doctor Unassroxana, [facility] DIAGNOSIS AND TREATMENT [place] [facility] POCT MOLECULAR FLU 2021-11-29 22:46:00 Mohan [facility] INS INFUS DEV LT BASILIC 2020-03-15 00:00:[address] [facility] VN PERQ [facility] (LUF/DAVID/SA) ULTRASONOGRAPHY LT UP EXT 2020-03-15 00:00:[address] [facility] VNS GUID [facility] (LUF/DAVID/SA) ROBOTIC LAP LYSIS OF 2020-03-02 12:56:[address] [facility] ADHESIONS [facility] (LUF/DAVID/SA) LAPAROSCOPY ENTEROLYSIS 2020-03-02 00:00:[address] [facility] SEPARATE PROCEDU [facility] (LUF/DAVID/SA) COLONOSCOPY FLX DX W/COLLJ 2020-02-26 00:00:[address] [facility] SPEC WHEN PFR [facility] (LUF/DAVID/SA) ROBOTIC RIGHT OOPHORECTOMY 2019-03-21 17:09:[address] [facility] LUF (Right) [facility] (LUF/DAVID/SA) CYSTO RGP STENT PLACEMENT 2015-04-20 14:01:[address] [facility] LUF [facility] (LUF/DAVID/SA) CYSTO RGP STENT PLACEMENT 2015-04-20 14:01:[address] [facility] LUF [facility] (LUF/DAVID/SA) Hysterectomy [facility] (LUF/DAVID/SA) Total thyroidectomy [facility] (LUF/DAVID/SA) section [facility] (F/DAVID/SA) ABDOMINAL ADHESIONS [facility] REMOVED [facility] (F/DAVID/SA) Extracorporeal shockwave [facility] lithotripsy [facility] (F/DAVID/SA) MULTIPLE CYSTECTOMYS DONE [facility] (F/DAVID/SA) MULTIPLE CYSTECTOMYS DONE [facility] (F/DAVID/SA) ABDOMINAL ADHESIONS [facility] (F/DAVID/SA) Appendectomy [facility] ([facility]/DAVID/SA) Plan of Care Planned Activity Planned Date [...] Type Clinicians Facility Department ID 2021-07-[address] [facility] Common 08:27:02 Josué 0127 [facility] 2021-07-26 Outpatient Nba, DORCASLC [facility] Common 14:20:31 Josué 1203 [facility] 2021-07-26 Outpatient Nba, STCARLOS ENRIQUELC [facility] Common 14:05:52 Josué 1027 [facility] 2021-07-26 Outpatient Nba, STLMLC [facility] Common 12:01:28 Josué 1103 [facility] 2021-07-26 Outpatient Nba, STLMLC [facility] Common 11:56:42 Josué 1019 [facility] 2021-07-26 Outpatient Nba, STLMLC [facility] Common 11:49:38 Josué 0928 [facility] 2021-07-26 Outpatient Nba, STLMLC [facility] Common 11:48:02 Josué 0922 [facility] 2021-07-26 Outpatient Nba, STLMLC [facility] Common 11:47:47 Josué 0921 [facility] 2021-07-26 Outpatient Nba, STLMLC [facility] Common 11:42:15 Josué 0901 [facility] 2021-07-26 Outpatient Nba, STLMLC [facility] Common 11:32:09 Josué 0720 [facility] 2022-07-22 2022-07-22 Outpatient FOG_Dunn_Wa AOSM AOSM [id number] Adelia 00:00:00 00:00:00 Jhon [id number] [facility] 2022-07-06 2022-07-06 Outpatient FOG_Dunn_Wa AOSM AOSM [id number] Adelia 00:00:00 00:00:00 Jhon [id number] [facility] 2022-06-17 2022-06-17 Outpatient FOG_Dunn_Wa AOSM AOSM [id number] Adelia 00:00:00 00:00:00 Jhon [id number] [facility] 2022-06-13 2022-06-13 Outpatient Irwin LUCIA [facility] [id number] Univers 17:20:00 17:41:53 MAGDALENE melo [facility] 2022-06-13 2022-06-13 Urgent Magdalene Lucia [facility] [id number] Univers 17:20:00 17:41:53 Care Unknown, [facility] [id number] ity of [place] [id number] Jacques as SUE?BLEA [id number] [address] 2022-06-13 2022-06-13 Telephone [facility] [id number] Univers 00:00:00 00:00:00 [facility] [id number] it y of [place] [id number] Jacques as SUE?BLEA [id number] [address] 2022-05-13 2022-05-13 Outpatient Priscilla_Vita AO AO [id number] Adelia 00:00:00 00:00:00 Jhon [id number] [facility] 2022-05-07 2022-05-07 Emergency X EJ [facility] ERT [id number] Univers 07:57:00 09:45:00 RIDGE [facility] 2022-05-07 2022-05-07 Emergency [facility] [id number] Univers 07:57:00 09:45:00 Ridge [facility] [id number] i [facility] [id number] [place] [facility] [id number] [address] 2022-05-07 2022-05-07 Outpatient Mike AO AO [id number] Adelia 00:00:00 00:00:00 Jhon [id number] [facility] 2022-04-23 2022-04-23 Emergency EM PACO Quintero [id number] [facility] 09:39:00 10:55:00 Truman [facility] 2022-02-19 2022-02-19 Emergency X STEVEN [facility] ERT [id number] Univers 09:15:00 11:05:00 TRICE melo [facility] 2022-02-19 2022-02-19 Emergency Steven [facility] [id number] Univers 09:15:00 11:05:00 Trice GAONA [id number] i ty of [facility] [id number] [place] [id number] [address] 2021-11-29 2021-11-29 [facility]gent [facility] [id number] Univers 17:40:00 18:00:00 Care [facility] [id number] it y of [place] [id number] Jacques as SUE?BLEA [id number] Sc [address] MEDICAL OFFICE BUILDING 2021-11-29 2021-11-29 Outpatient [facility] [id number] Univers 17:40:00 17:40:00 [facility]exas [facility] 2021-11-29 2021-11-29 Outpatient Irwin PRESTON [facility] [id number] Univers 17:40:00 17:40:00 [facility] 2021-10-26 2021-10-26 Office Wan, 1.2.840.1 [id number] Univers 09:45:00 10:47:06 Visit Praveen [id number] ity of 3.412.2.7 [place] .3.448851 MD Diaz [facility] 2021-10-26 2021-10-26 Office GEOVANI Blas, 1.2.840.1 [id number] Univers 09:45:00 10:47:06 Visit Praveen 96857.1.1 ity of 3.412.2.7 [place] .3.062201 MD Diaz [facility] 2021-10-26 2021-10-26 Travel 1.2.840.1 [id number] Univers 00:00:00 00:00:00 [id number] ity of 3.412.2.7 [place].3.698 [place] .3.253997 084.8 MD Diaz [facility] 2021-10-26 2021-10-26 Travel 1.2.840.1 [id number] Univers 00:00:00 00:00:00 [id number] ity of 3.412.2.7 [place]3.698 [place] .[id number] 084.8 .8 [facility] 2021-10-15 2021-10-15 [facility] [id number] 22:25:00 22:45:00 CONSCIOUS EKTA Gamboa s SIMULATION Memor ia l (LUF/LI V/SA) 2021-10-15 2021-10-15 Inpatient [facility] [id number] [facility] 00:[facility] 00:00:00 DOWNEY [id number] [facility], [id number] Memor ia [id number] [place] (LUF/[address], V/SA) [place] [address] 2021-10-15 2021-10-15 Inpatient [facility] OF [facility] [id number] 00:[facility] 00:00:00 DOWNEY [id number] [facility], [id number] Memor ia [address] [id number] l [place] (LUF/LI AVE, V/SA) [place] [address] 2021-08-29 2021-08-29 Outpatient Irwin SCHUMACHER [facility] [id number] Univers 16:20:00 16:20:00 PATRICK [facility] 2021-08-07 2021-08-07 Emergency EM Tyree, [facility] AMPARO [id number] [facility] 09:36:00 12:55:00 Olga 19 [facility] 2021-08-01 2021-08-02 Emergency X DEVORA NCJADE ERT [id number] Univers 22:00:00 01:17:00 LEANNE [facility] 2021-08-01 2021-08-02 Emergency Devora [facility] [id number] Univers 22:00:00 01:17:00 Leanne S [place] [id number] i ty of [place] [id number] [place] [id number] [facility] [address] 2021-06-28 2021-06-28 Outpatient R KHARI [facility] [id number] Univers 17:30:00 17:30:00 [facility] 2021-06-22 2021-06-22 Letter REHAN Chaves [id number] Univers 00:00:00 00:00:00 (Out) Eve Whiting ROSA [id number] it y of [facility] [id number] Jacques as [id number] [facility] [address] [place] 2021-06-22 2021-06-22 [facility] 1.2.840.114 [id number] Univers 00:00:00 00:00:00 Rania HEALTH 350.1.13.10 it y of [place] 4.2.7.2.686 Jacques as SUE?BLEA [phone] [address] MEDICAL OFFICE BUILDING 2021-06-21 2021-06-21 Outpatient R TERE [facility] [id number] Univers 11:00:00 12:14:12 PATRICK [facility] 2021-06-21 2021-06-21 Urgent Clovernerené [facility] 1.2.840.114 [id number] Univers 11:00:00 11:20:00 Pratik [facility] [id number] ity of [place] [id number] Jacques as SUE?BLEA [phone] [address] MEDICAL OFFICE BUILDING 2021-06-21 2021-06-21 Telephone [facility] 1.2.840.114 [id number] Univers 00:00:00 00:00:00 Rania HEALTH 350.1.13.10 it y of [place] 4.2.7.2.686 Jacques as SUE?BLEA [phone] [address] MEDICAL OFFICE BUILDING 2021-06-21 2021-06-21 Letter Doctor REHAN 1.2.840.114 [id number] Univers 00:00:00 00:00:00 (Out) Unassigned, ROSA 350.1.13.10 ity of [place] [facility] 4.2.7.2.686 Jacques as [phone] [place] [id number] [place] 2021-05-30 2021-05-30 (TEL) STLMLC STLMLC [id number] Co mmon 00:00:00 00:00:00 [facility] 2021-05-29 2021-05-29 (TEL) STLMLC STLMLC [id number] Co mmon 00:00:00 00:00:00 [facility] 2021-04-26 2021-04-26 (TEL) STLMLC STLMLC [id number] Co mmon 00:00:00 00:00:00 [facility] 2021-04-23 2021-04-23 UNSPECIFIE 1 J[facility] [id number] [facility] 00:46:00 02:08:00 [facility] ABDOMINAL Memori a PAIN l (LUF/LI V/SA) 2021-04-23 2021-04-23 Inpatient [facility] OF [place] [address] ce73-5 [facility] 00:00:00 00:00:00 DOWNEY b34-4l91-4 [facility], 5z9-ns4uo7 Memor ia [address] a89c0d l [place] (LUF/LI AVE, V/[place]) [place] [address] 2021-04-23 2021-04-23 Inpatient [facility] 6aab 1878-[address] [facility] [address] 00:00:00 00:00:00 DOWNEY j6h-1467-2 [facility], [id number] Memor ia [address] 822c23 l [place] (LUF/LI AVE, V/SA) [place] [address] 2021-03-24 2021-03-24 ANXIETY 1 YURY, [facility] [place] [address] [address] [facility] [address] 10:25:00 12:27:00 DISORDER REHAN [facility] [place] Memor ia D [address] [place] (LUF/LI AVE, V/[place]) [place] [address] 2021-03-24 2021-03-24 Inpatient [facility] [place] f871 cc2a-c [facility] 00:00:00 DOWNEY 9aa-405b-9 [facility], [id number] Memor ia [address] cf90e3 l [place] (LUF/LI AVE, V/SA) [place] [address] 2021-03-24 2021-03-24 Inpatient [facility] e945 ff19-c [facility] 00:[facility]:00 00:00:00 DOWNEY l82-7x22-b [facility], 88b-033ffa Memor ia [address] 683da2 l [place] (LUF/LI AVE, V/SA) [place] [address] 2021-03-23 2021-03-23 Orders Nofies, 1.2.840.1 [id number] [facility] 00:00:00 00:00:00 Only Alden M 29128.1.1 ity of 3.412.2.7 [place] .3.298093 MD .8 [facility] 2021-03-10 2021-03-10 UTI SITE E LEONARD, [facility] [place] [id number] [facility] 10:29:00 13:50:00 NOT [facility], Memori a [address] [place] (LUF/LI AVE, V/SA) [place] [address] 2021-03-10 2021-03-10 Inpatient [facility] [place] 16e7 6598-b [facility] 00:00:00 00:00:00 DOWNEY k4f-6788-0 [facility], [id number] Memor ia [address] 8ebb0b l [place] (LUF/LI AVE, V/SA) [place] [address] 2021-03-10 2021-03-10 Inpatient [facility] [place] 518c 3339-c [facility] 00:00:00 00:00:00 DOWNEY t96-6tb8-9 [facility], i5l-6sn35v Memor ia [address] f904e5 l [place] (LUF/LI AVE, V/[place]) [place] [address] 2021-02-23 2021-02-23 RIGHT E [facility] [place] [id number] [address] 08:15:00 12:44:00 LOWER [facility] [address] [place] (LUF/LI AVE, V/SA) [place] [address] 2021-02-23 2021-02-23 Inpatient [facility] [place] 89b5 d1de-[address] 00:00:00 00:00:00 DOWNEY 09f-406d-9 [facility], 74d-24f9de Memor ia [address] e8fcf1 l [place] (LUF/LI AVE, V/[place]) [place] [address] 2021-02-23 2021-02-23 Inpatient [facility] [place] 8500 e20f-[address] 00:00:00 00:00:00 DOWNEY 1ef-425c-a [facility], 5af-63j224 Memor ia [address] 1655de l [place] (LUF/LI AVE, V/[place]) [place] [address] 2021-01-10 2021-01-10 CALCULUS Jake DYKES, [facility] [place] [id number] [facility] 00:21:00 03:06:00 OF KIDNEY SETH [facility] [address] [place] (LUF/LI AVE, V/SA) [place] [address] 2021-01-10 2021-01-10 Inpatient [facility] ff0d 2205-c [facility] 00:00:00 00:00:00 DOWNEY n44-2l22-x [facility], 72a-11f6e9 Memor ia [address] 3fb6a8 l [place] (LUF/LI AVE, V/[place]) [place] [address] 2021-01-10 2021-01-10 Inpatient [facility] deee fe83-e [facility] 00:00:00 00:00:00 DOWNEY ff6-4d87-9 [facility], 32e-3f75c9 Memor ia [address] e09ed4 l [place] (LUF/LI AVE, V/SA) [place] [address] 2020-12-27 2020-12-27 Emergency [facility] Zarina [id number] [place] 00:00:00 00:00:[address] 2020-12-22 2020-12-22 Outpatient 3 LONI MURILLO TIC [id number] [facility] [address] 09:00:00 09:00:00 SKYE lucia Memoria l (LUF/LI V/SA) 2020-12-13 2020-12-13 Emergency EM Ana, HCAKW AMPARO [id number] [facility] 01:53:00 06:36:00 Tangela 55 [facility] 2020-12-12 2020-12-12 RIGHT Jake COTTON, [facility] [place] [id number] [facility] [address] 12:33:00 14:00:00 [facility], Memoria PAIN [address] [place] (LUF/LI AVE, V/SA) [place] [address] 2020-12-12 2020-12-12 Inpatient [facility] e2c0 cb47-b [facility] 00:00:00 00:00:00 DOWNEY 82f-45d0-a [facility], 13e-0f9f6d Memor ia [address] y4g320 l [place] (LUF/LI AVE, V/SA) [place] [address] 2020-12-12 2020-12-12 Inpatient [facility] [place] 43ed f7fe-4 [facility] 00:00:00 00:00:00 DOWNEY c77-91gs-i [facility], 316-6l755w Memor ia [address] 70ade3 l [place] (LUF/LI AVE, V/SA) [place] [address] 2020-12-08 2020-12-08 SHREYAS SOTOMAYOR, [facility] [id number] 09:44:00 12:26:00 D WYATT [facility], Memori a PAIN [address] [place] (LUF/LI AVE, V/SA) [place] [address] 2020-12-08 2020-12-08 Inpatient [facility] 6a3f a794-a [facility] 00:00:00 00:00:00 DOWNEY 7g2-1x99-7 [facility], 4s9-3r4721 Memor ia [address] 9973a7 l [place] (LUF/LI AVE, V/SA) [place] [address] 2020-11-25 2020-11-25 UNSPECIFIE [facility] [place] [id number] [facility] 00:13:00 00:30:00 D [facility] [place], Memori a PAIN [address] [place] (LUF/LI AVE, V/SA) [place] [address] 2020-11-25 2020-11-25 Inpatient [facility] 3041 db6a-[address] [facility] [address] 00:00:00 00:00:00 DOWNEY fb6-4754-b [facility], y2l-qls596 Memor ia [address] 841f4f l [place] (LUF/LI AVE, V/SA) [place] [address] 2020-11-25 2020-11-25 Inpatient [facility] [place] a3eb ed11-a [facility] 00:00:00 00:00:00 DOWNEY n20-2ja1-6 [facility], [id number] Memor ia [address] ea5dda l [place] (LUF/LI AVE, V/SA) [place] [address] 2020-11-21 2020-11-21 ENDOMETRIO 1 [facility] [place] [id number] 07:14:00 09:53:00 SIS DOWNEY [facility] [place], Memor ia D [address] [place] (LUF/LI AVE, V/SA) [place] [address] 2020-11-21 2020-11-21 Inpatient [facility] 90f0 278b-[address] 00:00:00 00:00:00 DOWNEY 1v8-01nd-5 [facility], 4bb-5eeded Memor ia [address] 4m5978 l [place] (LUF/LI AVE, V/SA) [place] [address] 2020-11-21 2020-11-21 Inpatient [facility] [place] 3b21 9c7a-[address] [facility] [address] 00:00:00 00:00:00 DOWNEY 30a-405e-8 [facility], [id number] Memor ia [address] 3040c4 l [place] (LUF/LI AVE, V/SA) [place], [place] [address] 2020-11-14 2020-11-14 GASTRITIS 1 YURY [facility] EMD [id number] [facility] [address] 09:27:00 14:37:00 UNS REHAN [facility] WITHOUT Memoria BLEEDING l (LUF/LI V/SA) 2020-11-14 2020-11-14 Inpatient [facility] [place] d4fe d3e2-[address] [facility] [address] 00:00:00 00:00:00 DOWNEY 3cf-4b7a-a [facility], 2ad-d46ca7 Memor ia [address] 2d56cc l [place] (LUF/LI AVE, V/SA) [place], J[place]IÁ[place] [address] 2020-11-14 2020-11-14 Inpatient [facility] [place] 324e 65b9-b [facility] 00:00:00 00:00:00 DOWNEY 464-403c-8 [facility], [id number] Memor ia [address] h1177u l [place] (LUF/LI AVE, V/SA) [place], [place]ULI[place]N [address] 2020-11-08 2020-11-08 OTHER E COTTON, [facility] [place] [id number] [facility] [address] 08:04:00 13:13:00 [facility] [place], Memoria [address] (LUF/LI AVE, V/[place]) [place] [address] 2020-11-08 2020-11-08 Inpatient [facility] 8079 b52c-c [facility] 00:00:00 00:00:00 DOWNEY ed8-4ae3-8 [facility], 758-0wk965 Memor ia [address] cf6d84 l [place] (LUF/LI AVE, V/[place]) [place] [address] 2020-11-08 2020-11-08 Inpatient [facility] [place] 0f07 dc59-[address] [facility] [address] 00:00:00 00:00:00 DOWNEY 292-4184-b [facility], 8ff-44cd4a Memor ia [address] d1bfd4 l [place] (LUF/LI AVE, V/SA) [place] [address] 2020-11-08 2020-11-08 Inpatient [facility] [place] 40b4 e14c-[address] [facility] [address] 00:00:00 00:00:00 DOWNEY 784-40e4-9 [facility], o37-40y839 Memor ia [address] 29ea9a l [place] (LUF/LI AVE, V/SA) [place], [place] [address] 2020-11-01 2020-11-01 NAUSEA E WANDA, [facility] [place] [address] [facility] [address] 00:27:00 03:55:00 WITH CLEMENT [facility], Memoria UNSPECIFIE [address] l D [place] (LUF/LI AVE, V/SA) [place], [place] [address] 2020-11-01 2020-11-01 Inpatient [facility] 1ec3 64c1-c [facility] 00:00:00 00:00:00 DOWNEY f30-2nzd-b [facility], 85a-l3619p Memor ia [address] x8910l l [place] (LUF/LI AVE, V/[place]) [place] [address] 2020-11-01 2020-11-01 Inpatient [facility] [place] 79c0 b023-[address] [facility] [address] 00:00:00 00:00:00 DOWNEY 1p5-486z-y [facility], 747-zm7409 Memor ia [address] 783eec l [place] (LUF/LI AVE, V/[place]) [place] [address] 2020-10-04 2020-10-05 OTHER E RODRICK, [facility] [place] [address] 23:32:00 01:00:00 CHRONIC JUAN [facility], Memoria [address] [place] (LUF/LI AVE, V/SA) [place] [address] 2020-10-04 2020-10-04 Inpatient [facility] b016 f3f5-a [facility] 00:00:00 00:00:00 DOWNEY 4h7-0i0a-n [facility], 67e-8f5081 Memor ia [address] bb93d3 l [place] (LUF/LI AVE, V/SA) [place] [address] 2020-10-04 2020-10-04 Inpatient [facility] ea96 0c7a-[address] 00:00:00 00:00:00 DOWNEY 25c-4997-b [facility], x09-[id number] Memor ia [address] 1f27e6 l [place] (LUF/LI AVE, V/SA) [place] [address] 2020-09-18 2020-09-18 OTHER E [facility] [place] [id number] 01:00:00 04:44:00 CHRONIC DOWNEY [facility] [place]IN [place], [facility] [address] [place] (LUF/LI AVE, V/SA) [place] [address] 2020-09-18 2020-09-18 Inpatient [facility] [place] b80a 7ee5-[address] 00:00:00 00:00:00 DOWNEY 3i2-748u-3 [facility], 081-f46040 Memor ia [address] [id number] l [place] (LUF/LI AVE, V/[place]) [place] [address] 2020-09-18 2020-09-18 Inpatient [facility] [place] 1a33 0198-a [facility] 00:00:00 00:00:00 DOWNEY 921-44cf-8 [facility], [id number] Memor ia [address] 547064 l [place] (LUF/LI AVE, V/SA) [place] [facility]904 2020-09-12 2020-09-12 ENDOMETRIO E SANACIUK, [facility] [place] [id number] [facility] 00:46:00 02:38:00 SIS JUAN [facility] [place], Memor ia D [address] [place] (LUF/LI AVE, V/SA) [place] [address] 2020-09-12 2020-09-12 Inpatient [facility] [place] 726d 153b-a [facility] 00:00:00 00:00:00 DOWNEY l9k-9525-8 [facility], 4f2-5sak03 Memor ia [address] 2913af l [place] (LUF/LI AVE, V/SA) [place] [address] 2020-09-12 2020-09-12 Inpatient [facility] 9a2d b59c-c [facility] 00:00:00 00:00:00 DOWNEY 607-4f36-8 [facility], 6c3-4654ih Memor ia [address] 655cce l [place] (LUF/LI AVE, V/SA) [place] [address] 2020-08-22 2020-08-22 OTHER Jake MENSAH, [facility] [place] [id number] [facility] [address] 01:13:00 03:24:00 [facility] [address] [place] (LUF/LI A[address], V/SA) [place] [address] 2020-08-22 2020-08-22 Inpatient [facility] 7a1d d2a9-[address] 00:00:00 00:00:00 DOWNEY 050-4a19-8 [facility], 62e-7ef55a Memor ia [address] 6eae2a l [place] (LUF/LI AVE, V/SA) [place] [address] 2020-08-22 2020-08-22 Inpatient [facility] 53d3 2542-f [facility] 00:00:00 00:00:00 DOWNEY 72a-4479-9 [facility], 7da-c14e55 Memor ia [address] 284d1a l [place] (LUF/LI AVE, V/SA) [place] [address] 2020-08-06 2020-08-06 Inpatient Jake HOODNAVDEEP, [facility] [id number] 01:21:00 03:35:00 [facility] [address] [place] (LUF/LI AVE, V/SA) [place] [address] 2020-08-06 2020-08-06 Inpatient [facility] [place] 07b7 067c-a [facility] 00:00:00 00:00:00 DOWNEY 3b3-3tg6-4 [facility], df6-qc8141 Memor ia [address] 4f7e15 l [place] (LUF/LI AVE, V/[place]) [place] [address] 2020-07-19 2020-07-19 RIGHT Jake COTTON, [facility] OF [place] [address] [facility] [address] 07:50:00 11:20:00 [facility], Memoria PAIN [address] [place] (LUF/LI AVE, V/SA) [place] [address] 2020-07-19 2020-07-19 Inpatient [facility] [place] 625d 6050-c [facility] 00:00:00 00:00:00 DOWNEY 92c-4e48-9 [facility], fb2-aa7c63 Memor ia [address] [id number] l [place] (LUF/LI AVE, V/SA) [place] [address] 2020-07-19 2020-07-19 Inpatient [facility] 0f28 [id number] [facility] [address] 00:00:00 00:00:00 DOWNEY bbb-4c99-b [facility], 7cf-52764u Memor ia [address] ca6e76 l [place] (LUF/LI AVE, V/[place]) [place] [address] 2020-07-05 2020-07-05 SKYLAR MENSAH, [facility] [place] [address] [address] [facility] [address] 02:42:00 05:00:00 CHRONIC JUAN [facility], Memoria [address] [place] (LUF/LI AVE, V/SA) [place] [address] 2020-07-05 2020-07-05 Inpatient [facility] [place] 525e 4189-f [facility] 00:00:00 00:00:00 DOWNEY bff-495f-b [facility], e74-8227jq Memor ia [address] 7ec68b l [place] (LUF/LI AVE, V/[place]) [place] [address] 2020-07-05 2020-07-05 Inpatient [facility] c54b 2c2e-e [facility] 00:[facility]:00 00:00:00 DOWNEY 987-4ea3-9 [facility], 4u8-0z88m9 Memor ia [address] [id number] l [place] (LUF/LI AVE, V/SA) [place] [address] 2020-06-10 2020-06-10 (TEL) STLMLC STLMLC [id number] Co mmon 00:00:00 00:00:00 [facility] 2020-06-07 2020-06-07 Inpatient 1 YURY, [facility] OF [place] [address] [id number] [facility] [address] 12:56:00 19:04:00 [facility] [address] [place] (LUF/LI AVE, V/SA) [place] [address] 2020-06-07 2020-06-07 Inpatient [facility] 5603 9727-e [facility] 00:00:00 00:00:00 DOWNEY aaa-4da7-9 [facility], 658-72ce87 Memor ia [address] 1139d5 l [place] (LUF/LI AVE, V/SA) [place] [address] 2020-05-31 2020-05-31 Inpatient E YURY, [facility] OF [place] [id number] 09:31:00 14:13:00 [facility] [address] [place] (LUF/LI AVE, V/SA) [place], [place] [address] 2020-05-10 2020-05-10 Outpatient STLMLC STLMLC [id number] Common 00:00:00 00:00:00 [facility] 2020-05-09 2020-05-09 Outpatient STLMLC STLMLC [id number] Common 00:00:00 00:00:00 [facility] 2020-05-05 2020-05-05 Outpatient STLMLC STLMLC [id number] Common 00:00:00 00:00:00 [facility] 2020-05-02 2020-05-02 Outpatient STLMLC STLMLC [id number] Common 00:00:00 00:00:00 [facility] 2020-05-02 2020-05-02 Outpatient STLMLC STLMLC [id number] Common 00:00:00 00:00:00 [facility] 2020-04-29 2020-04-29 Outpatient STLMLC STLMLC [id number] Common 00:00:00 00:00:00 [facility] 2020-04-25 2020-04-25 LEFT LOWER E [facility] [id number] 16:46:00 21:30:00 QUADRANT [facility] [address] [place] (LUF/LI AVE, V/SA) [place] [address] 2020-04-22 2020-04-22 Outpatient STLMLC STLMLC [id number] Common 00:00:00 00:00:00 [facility] 2020-04-20 2020-04-20 PROC&TX [facility] [id number] [facility] [address] 15:39:00 16:03:00 NOT [facility] OUT PT [address] LEAVE [place] (LUF/LI AVE, V/SA) [place] [address] 2020-04-20 2020-04-20 Outpatient STLMLC STLMLC [id number] Common 00:00:00 00:00:00 [facility] 2020-04-20 2020-04-20 Outpatient STLMLC STLMLC [id number] Common 00:00:00 00:00:00 [facility] 2020-04-15 2020-04-15 Outpatient STLMLC STLMLC [id number] Common 00:00:00 00:00:00 [facility] 2020-04-13 2020-04-13 Outpatient STLMLC STLMLC [id number] Common 00:00:00 00:00:00 [facility] 2020-04-12 2020-04-12 Outpatient STLMLC STLMLC [id number] Common 00:00:00 00:00:00 [facility] 2020-04-11 2020-04-11 Outpatient STLMLC STLMLC [id number] Common 00:00:00 00:00:00 [facility] 2020-04-08 2020-04-08 Outpatient STLMLC STLMLC [id number] Common 00:00:00 00:00:00 [facility] 2020-04-06 2020-04-06 Outpatient STLMLC STLMLC [id number] Common 00:00:00 00:00:00 [facility] 2020-04-04 2020-04-04 Outpatient STLMLC STLMLC [id number] Common 00:00:00 00:00:00 [facility] 2020-03-31 2020-03-31 Outpatient STLMLC STLMLC [id number] Common 00:00:00 00:00:00 [facility] 2020-03-29 2020-03-29 Outpatient GEOVANI WANCAMILA [facility] [id number] MD 00:00:00 00:00:00 PRAVEEN payton 2020-03-29 2020-03-29 Outpatient STLMLC STLMLC [id number] Common 00:00:00 00:00:00 [facility] 2020-03-28 2020-03-28 Outpatient STLMLC STLMLC [id number] Common 00:00:00 00:00:00 [facility] 2020-03-22 2020-03-22 Outpatient STLMLC STLMLC [id number] Common 00:00:00 00:00:00 [facility] 2020-03-21 2020-03-21 Outpatient STLMLC STLMLC [id number] Common 00:00:00 00:00:00 [facility] 2020-03-20 2020-03-20 FEDE COTTON, [facility] [place] [id number] 17:08:00 22:56:00 ABDOMINAL REHAN [facility] PAIN [facility] UNSPECIFIE [address] (LUF/YUKI WEBB, V/SA) [place] [address] 2020-03-14 2020-03-17 CELLULITIS E RIVERA, [facility] [id number] 14:54:00 11:30:00 OF ORTHODOXY DOWNEY Luke s [facility] [place] [address] ([address], V/SA) [place] [address] 2020-03-03 2020-03-03 [facility] [id number] Common 13:33:00 13:33:00 Clinics [facility] 2020-03-02 2020-03-02 FE RYAN WOLFE, [facility] [id number] [facility] [address] 05:58:00 15:35:00 PERITON LIZBETH [facility] POSTINFECT [address] ([address], V/SA) [place] [address] 2020-03-02 2020-03-02 Outpatient [facility] [id number] Common 00:00:00 00:00:00 [facility] 2020-03-01 2020-03-01 [facility] [id number] Common 09:15:00 09:15:00 [facility] 2020-02-29 2020-02-29 [facility] [id number] Common 09:30:00 09:30:00 [facility] 2020-02-25 2020-02-27 LOWER E YURY, [facility] [place] [id number] [address] 13:21:00 12:09:[address] [facility] UNSPECIFIE [address] ([address], V/SA) [place] [address] 2020-02-25 2020-02-25 UNSPECIFIE E RODRICK, [facility] [id number] [facility] 00:40:00 05:00:00 D JUAN [facility] a PAIN [address] ([address], V/SA) [place] [address] 2020-01-25 2020-01-25 LOW BACK 1 COTTON, [facility] [place] [id number] [facility] 11:28:00 13:15:00 PAIN REHAN [facility] [address] ([address], V/SA) [place] [address] 2020-01-18 2020-01-18 Outpatient [facility] [id number] Common 11:45:00 11:45:[address] [facility] 2019-12-09 2019-12-09 OTHER E [facility] [place] [id number] 03:03:00 05:08:00 CHRONIC DOWNEY [facility] PAIN [place], Mem[facility] [address] ([address], V/SA) [place] [address] 2019-11-24 2019-11-24 UNSPECIFIE E [facility] [place] [id number] 00:31:00 05:30:00 D DOWNEY [facility] ABDOMINAL [place], Memori a PAIN [address] ([address], V/SA) [place] [address] 2019-10-07 2019-10-07 RIGHT 1 YURY, [facility] [place] [id number] 20:35:00 23:10:00 LOWER [facility] [place], Memoria PAIN [address] ([address], V/SA) [place] [address] 2019-09-20 2019-09-20 RIGHT 1 YURY, [facility] [place] [id number] 00:33:00 04:23:00 LOWER [facility] [place] [address] ([address], V/SA) [place] [address] 2019-08-17 2019-08-17 UNSPECIFIE 1 RIVERA, [facility] [place] [id number] 02:18:00 04:45:00 D ORTHODOXY DOWNEY Lu s ABDOMINAL [place], Memori a PAIN [address] ([address], V/SA) [place] [address] 2019-04-22 2019-04-22 Outpatient [facility] [id number] Common 12:03:00 12:03:[address] [facility] 2019-04-14 2019-04-14 Outpatient [facility] [id number] Common 16:12:00 16:12:[address] [facility] 2019-04-06 2019-04-06 Outpatient [facility] [id number] Common 12:16:00 12:16:00 [facility] 2019-03-31 2019-03-31 Outpatient [facility] [id number] Common 14:00:00 14:00:00 [facility]ly [facility] 2018-12-07 2018-12-07 UNSPECIFIE 1 QUINTIN BRITO [facility] [id number] [facility] 01:06:00 04:45:00 D OVARIAN DOWNEY Luke s CYST RIGHT [facility] ia SIDE [address] ([address], V/SA) [place] [address] 2018-10-29 2018-10-29 N-PRSS CHR BLAKE[place], [facility] [place] [id number] [facility] [address] 06:59:00 23:59:00 ULCR SKIN MIKY DOWNEY Luke s OTH [facility] [address] ([address], V/SA) [place] [address] 2018-10-22 2018-10-22 N-PRSS CHR [place]LAKE[place], [facility] [place] [id number] [facility] 07:20:00 23:59:00 ULCR SKIN MIKY [facility]OWNEY [facility] [address] ([address], V/SA) [place] [address] 2018-10-15 2018-10-15 N-PRSS CHR O [place]LAKE[place], [facility] [place] [id number] [facility] 07:08:00 23:59:00 [facility] [address] ([address], V/SA) [place] [address] 2018-09-30 2018-10-01 INFCT FOL 1 SHABNAM, [facility] [place] [id number] [facility] 18[facility]46:00 01:05:00 PRC SUPF DIMAS [facility], [facility] SIT INIT [address], V/SA) [place] [address] 2018-09-01 2018-09-01 OTH 1 WANDA, [facility] [place] [address] 09:12:00 14:00:00 NONINFL CLEMENT [facility] D/O OVARY [place], Memori a TUBE&BRD [address], V/SA) [place] [address] 2018-05-13 2018-05-13 Inpatient 1 WANDA, [facility] [place] [id number] 10:52:00 13:46:00 [facility] [address], V[address]SA) [place] [address] 2017-12-24 2017-12-24 UNSPECIFIE 1 QUINTIN BRITO [facility] [place] [id number] [facility] 07:51:00 13:52:00 D OVARIAN [facility] s CYST RIGHT [place], [facility] [address], V/SA) [place] [address] 2017-06-20 2017-06-21 HYDRONPHRO 1 RODRICK, [facility] [place] [id number] 23:01:00 03:55:00 S JUAN [facility] RENL&URETR [place], [facility] CALCUL [address], V/SA) [place] [address] 2017-05-13 2017-05-13 OTHER 3 MERLE, [facility] OF [facility] [place] [id number] 15:40:00 23:59:00 FATIGUE ASA [facility] [address], V[address]SA) [place] [address] Results Test Description Test Time Test Comments Results Result Comments Source POCT SARS-COV-2 ANTIGEN (BINAX NOW) 2022-06-13 23:43:00 Test Item Value Reference Range Interpretation Comme nts POCT SARS-COV-2 ANTIGEN (test code = 79378-4) Positive Not Dete cted A On board controls acceptable with C Line (test code = 3574) Yes Lab Interpretation (test code = 21295-8) Abnormal [facility] [place] [facility]- XR SHOULDER 2 + V [id number] 16:42:00 [facility] 1985 Sex: F Patient Name: LAUREN BETH Unit No: [id number] EXAMS: CPT CODE: [id number] XR SHOULDER 2 + [place] [address] Left shoulder 3 views COMMENT: There is no evidence for fracture or subluxation. No focal bony lesionsare seen. at 1642 Reported and signed by: Angelo Hardin MD CC: Truman Quintero MD Technologist: RT. Reji(R) Transcribed D/ (1641) VereniceJCL [facility] NAME: LAUREN BETH [address] [facility] PHYS:Truman Alfaro MD : 1985 AGE: 36 SEX: F [place], [place] [address] LOC: JOHNNIE PHONE #: [phone] EXAM DATE: 04/23/2022 STATUS: DEP ER FAX #: [phone] RAD #: D/C DT PAGE 1 Signed Report Patient Name: LAUREN BETH Unit No: [id number] EXAMS: CPT CODE: [id number] XR SHOULDER 2 + [place] [address] (Continued) Orig Print D/T: S: 04/23/2022 (1645) [facility] NAME: LAUREN BETH [address] [facility] PHYS: Truman Alfaro MD : 1985 AGE: 36 SEX: F [place] [id number] LOC: JOHNNIE PHONE #: [phone] EXAM DATE: 04/23/2022 STATUS: DEP ER FAX #: [phone] RAD #: D/C DT PAGE 2 Signed ReportCOMP. METABOLIC PANEL (58120)2022-02-19 14:56:05 Test Item Value Reference Range Interpretation Comments NA (test code = 137 mmol/L 135-145 6395389208) K (test code = 4.2 mmol/L 3.5-5 2976777386) CL (test code = 108 mmol/L 98-108 3366376495) CO2 TOTAL (test code = 19 mmol/L 23-31 L 9516438434) AGAP (test code = 2-16 4683539505) BUN (test code = 14 mg/dL 7-23 0522036620) GLUCOSE (test code = 133 mg/dL 70-110 H 9382461159) CREATININE (test code = 0.56 mg/dL 0.5-1.04 5768228847) TOTAL BILI (test code = 0.4 mg/dL 0.1-1.7 5686829432) CALCIUM (test code = 8.9 mg/dL 8.6-10.6 9675752458) T PROTEIN (test code = 6.5 g/dL 6.3-8.2 5062164577) ALBUMIN (test code = 4.0 g/dL 3.5-5 4003105991) ALK PHOS (test code = 84 U/L 34-122 3312053053) ALTv (test code = 23 U/L 5-35 1742-6) AST(SGOT) (test code = 24 U/L 13-40 9112088338) eGFR (test code = mL/min/1.73m2 8715735708) RENZO (test code = RENZO) Association of [...] tests). Lab Interpretation Abnormal (test code = 63634-3) [facility] 14:55:44 Test Item Value Reference Range Interpretation Comments LIPASE (test code = 4582196760) 81 U/L 0-220 Lab Interpretation (test code = Normal 34159-4) [facility] [place] [facility] WITH [id number] 14:36:26 Test Item Value Reference Range Interpretation Comments WBC (test code = See_Comment [Automated 2691-2) message] The sy stem which generated this result transmitted reference range : 4.30 - 11.10 10*3/?L. The reference range was not used to interpret this result as normal/abnormal . RBC (test code = See_Comment [Automated 530-0) message] The sy stem which generated this [...] RDW-SD (test code = 43.9 fL 39-49.9 64213-0) RDW-CV (test code = 13.7 % 12-15.5 788-0) PLT (test code = See_Comment [Automated 777-3) message] The sy stem which generated this result transmitted reference range : 166 - 358 10*3/ ?L. The reference r bruce was not used to interpret this result as normal/abnormal . MPV (test code = 8.5 fL 9.5-12.9 L 70096-0) NRBC/100 WBC (test See_Comment [Automat ed code = 5962937701) message] The system which generated this result transmitted reference range : 0.0 - 10.0 /100 WBCs. The refer ence range was not u sed to interpret th is result as normal/abnormal . NRBC x10^3 (test code See_Comment [Auto mated = 8974487767) message] The s ystem which generated this result transmitted reference range : 10*3/?L. The reference range was not used to interpret this result as normal/abnormal . GRAN MAT (NEUT) % 58.7 % (test code = 770-8) IMM GRAN % (test code 1.10 % = 1526826734) LYMPH % (test code = 31.6 % 736-9) MONO % (test code = 6.8 % 5905-5) EOS % (test code = 1.4 % 713-8) BASO % (test code = 0.4 % 706-2) GRAN MAT x10^3(ANC) 3.30 10*3/uL 1.88-7.09 (test code = 1669734740) IMM GRAN x10^3 (test 0.06 10*3/uL 0-0.06 code = 5226000973) LYMPH x10^3 (test code 1.77 10*3/uL 1.32-3.29 = 731-0) MONO x10^3 (test code 0.38 10*3/uL 0.33-0.92 = 742-7) EOS x10^3 (test code = 0.08 10*3/uL 0.03-0.39 711-2) BASO x10^3 (test code 0.01-0.07 = 704-7) Lab Interpretation Abnormal (test code = 48479-7) [facility] [place] [facility] [id number] 22:58:14 Test Item Value Reference Range Interpretation Comments POCT Molecular FluA (test code = Negative Negative 57277-7) POCT Molecular FluB (test code = Negative Negative 12390-1) Lab Interpretation (test code = Normal 40819-4) [facility] [place] [facility] PANEL [...] (test code = 0.2 mg/dl 0.0-1.1 IBIL) [id number] 13:57:00 Test Item Value Reference Range Interpretation Comments Lipase (test code = LIPA) 114 U/L 73-393 STLMLAMYLASE, [id number] 13:57:00 Test Item Value Reference Range Interpretation Comments Amylase (test code = AMYL) 51 U/L 25-115 STLMLSTAT LAB CHEM [id number] 22:45:00 Test Item Value Reference Range Interpretation [...] code = CO2) 22.1 mmol/l 24.0-29.[address] [facility] CBC WITH AUTO [id number] 22:43:00 Test Item Value Reference Range Interpretation [...] (test code = IG%) 0.2 % 0.0-0.4 STLHEPATIC FUNCTION [id number] 13:03:00 Test Item Value Reference Range Interpretation [...] 96 Unit/L 45-117 N code = ALKP) [id number] 13:03:00 Test Item Value Reference Range Interpretation Comments LIPASE (test code = LIP) 83 Unit/L 114-286 L BASIC METABOLIC [id number] 13:03:00 Test Item Value Reference Range Interpretation [...] 8.5-10.1 N UA RFLX MICR CULT IF [id number] 12:44:00 Test Item Value Reference Range Interpretation [...] OF URINE: CLEAN CATCH- CT ABD PELVIS [id number] 12:27:00 [facility] : 1985 Sex: F Name: LAUREN BETH [facility] : 1985 Age/S: 36 / F [address] [facility] Unit #: [id number]: Julián Holcomb [address] Phys: Marco Hilton NP Acct: [id number] Dis Date: Status: REG ER PHONE #: [phone] Exam Date: 08/07/2021 1223 FAX #: Reason: LLQ ABD PAIN EXAMS: CPT: [id number] CT ABD PELVIS W/CONT 10008 EXAM: CT ABDOMEN AND PELVIS WITH CONTRAST. [...] Campus : 1985 Age/S: 36 / F [address] [place] Unit #: [id number] Loc: [place] [address] Phys: Marco Hilton NP Acct: [id number] Dis Date: Status: REG ER PHONE #: [phone] Exam Date: 08/07/2021 1223 FAX #: Reason: LLQ ABD PAIN EXAMS: CPT: [id number] CT ABD PELVIS W/CONT 55286 <Continued> at 1227 Reported and signed by: Alma Cartwright M.D. CC: Olga Clements DO; Marco Hilton NP Technologist:RT Danyelle(R) CTDI: DLP: Trnscb Date/Time: 08/07/2021 (1227) [email or web address] Orig Print D/T: S: 08/07/2021 (6240) PAGE 2 Signed ReportCBC W/AUTO [id number] 12:23:00 Test Item Value Reference Range Interpretation [...] contact the [facility] at [phone]. [id number] 12:37:00 Test Item Value Reference Range Interpretation [...] 0.5-1.3 code = CREA) EGFR if >60 Maur[place] (test code mL/min/1.73m\\ = EGFRAA) S\\2 EGFR if Non- >60 Estimate d Glomerular Mauritian (test code mL/min/1.73m\\ Filtrat ion Rate (eGFR) [...] and management of c hronic kidney failure. [facility] [id number] 12:11:00 Test Item Value Reference Range Interpretation [...] after the clini felipa event. STLMLPT AND [id number] 12:09:00 Test Item Value Reference Range Interpretation Comments Protime (test code 9.5 seconds 9.5-12.1 = PT) INR (test code = 0.9 0.9-1.1 INR results are intended INR) ONLY to monitor Oral Anticoagulant t herapy in stablized patie nts. The INR Therapeutic Range is 2.0 - 3.0 Patie nts with a mechanical he art, the INR Range is 2. 5 - 3.5 [id number] 12:09:00 Test Item Value Reference Range Interpretation Comments aPTT (test code = PTT) 22.3 seconds 23.9-30.[address] [facility] CBC WITH AUTO [id number] 11:57:00 Test Item Value Reference Range Interpretation [...] 0.3 % 0.0-0.4 STLMLXR CHEST AP/PA 1 [id number] 11:33:32 [facility])Name: LAUREN BETH : 1985 Sex: FProcedure: XR CHEST AP/PA 1 VIEWOrder Date: 03/24/2021 10:57 AMOrdering Provider: REHAN COTTONClinical Indication: [id number]: DyspneaComparison: September 30, 2018Findings:Cardiac size is normal.Pulmonary vasculature is normal.Mediastinal contour is normal.Aortic contour is normal.No acute infiltrates or effusions.There is no mass or pneumothorax.There is no evidence of active tuberculosis.There isno acute skeletal abnormality.Impression: Negative AP view of the chest.This final report was electronically signed by Dr Farzad Dewitt MD :28 AMDictated By: FARZAD DEWITT.Date: :28STLMLCULTURE, [id number] 08:00:00Specimen: Urine SpecimensCollected: 03/10/2021 11:50 Status: Final [...] code = NEGATIVE NEGATIVE N UKET) Specific [place] 1.015 1.005-1.030 A (test code = USPGR) Blood (test code = NEGATIVE NEGATIVE N UBLD) PH (test code = UPH) 7.0 4.5-8.0 A Protein (test code = NEGATIVE NEGATIVE N UPROT) Urobilinogen (test 0.2 See_Comment N [Automat ed message] code = U UROB) The system [employer] generated this result transmit michael reference range [...] = NSE) STLMLSTAT LAB CBC WITH AUTO [id number] 12:10:00 Test Item Value Reference Range Interpretation [...] IG%) 0.8 % 0.0-0.4 H [facility] CHEM [id number] 12:08:00 Test Item Value Reference Range Interpretation [...] = CREA) 0.5 mg/dl 0.6-1.3 L STLMLCULTURE, [id number] 08:26:00Specimen: Urine SpecimensCollected: 02/23/2021 08:35 Status: Final Last Updated: 02/24/2021 08:26 CULTURE (Final) (Final) Many Mixed Body Gabriela Isolated No Pathogens IsolatedSTLMLCT ABDOMEN/PELVIS W/[id number] 11:40:43 [facility] ([facility])Name: LAUREN BETH : 1985 Sex: FProcedure: CT ABDOMEN/PELVIS W/CONTRASTOrder date: 02/23/2021 10:08 AMOrdering Provider: REHAN Farrellinical Indication: [id number]: Right lower quadrant painComparison: November 14, 2020Technique: [...] MD 111:35 AMDictated By: WILEY VELÁZQUEZDate: 02/23/2021 11:[id number] 10:44:00 Test Item Value Reference Range Interpretation Comments Lipase (test code = LIPA) 86 U/L 73-393 STLMLURINALYSIS WITH [id number] 08:58:00 Test Item Value Reference Range Interpretation Comments Color (test code = Light-Yellow UCOLR) Clarity (test code = Clear UCLAR) Glucose (test code = NEGATIVE NEGATIVE N UGLUC) Bilirubin (test code NEGATIVE NEGATIVE N = UBILI) Ketones (test code = NEGATIVE NEGATIVE N UKET) Specific [place] 1.020 1.005-1.030 A (test code = USPGR) Blood (test code = NEGATIVE NEGATIVE N UBLD) PH (test code = UPH) 6.0 4.5-8.0 A Protein (test code = NEGATIVE NEGATIVE N UPROT) Urobilinogen (test 0.2 See_Comment N [Automat ed message] code = U UROB) The system [employer] generated this result transmit michael reference range [...] = SQEP) STLMLSTAT LAB CBC WITH AUTO [id number] 08:52:00 Test Item Value Reference Range Interpretation [...] = IG%) 0.3 % 0.0-0.4 [facility] CHEM [id number] 08:52:00 Test Item Value Reference Range Interpretation [...] = CREA) 0.6 mg/dl 0.6-1.3 [facility] CBC WITH AUTO [id number] 02:37:00 Test Item Value Reference Range Interpretation [...] A value of 55 was entered by [id number] on 01/10/2021 02:3 7 Lymphocytes (test 43 % 13-42 H No previou s value code = LYMPH) was reported. A value of 43 was entered by [id number] on 01/10/2021 02:3 7 Monocytes (test 1 % 4-14 L No previous value code = MONOS) was reported. A value of 1 was entered by [id number] on 01/10/2021 02:3 7 Basophils (test 1 % 0-1 No previous value code = BASO) was reported. A value of 1 was entered by [id number] on 01/10/2021 02:3 7 Normal Morphology Normal WBC RBC Normal RBC \\T\\ N No pre vious value (test code = NRCM) and Platelet WBC was repor michael. A Morphology Morphology,Normal value of N ormal WBC RBC and WBC RBC and Platelet Platelet Morphology Morphology was entered by [id number] on 01/10/2021 02:3 7 STLMLAMYLASE, [id number] 02:14:00 Test Item Value Reference Range Interpretation Comments Amylase (test code = AMYL) 46 U/L 25-115 [id number] 02:14:00 Test Item Value Reference Range Interpretation Comments Lipase (test code = LIPA) 115 U/L 73-393 STLMLURINALYSIS WITH [id number] 02:07:00 Test Item Value Reference Range Interpretation Comments Color (test code = Light-Yellow UCOLR) Clarity (test code = Cloudy UCLAR) Glucose (test code = NEGATIVE NEGATIVE N UGLUC) Bilirubin (test code NEGATIVE NEGATIVE N = UBILI) Ketones (test code = NEGATIVE NEGATIVE N UKET) Specific [place] 1.025 1.005-1.030 A (test code = USPGR) Blood (test code = NEGATIVE NEGATIVE N UBLD) PH (test code = UPH) 6.0 4.5-8.0 A Protein (test code = NEGATIVE NEGATIVE N UPROT) Urobilinogen (test 0.2 See_Comment N [Automat ed message] code = U UROB) The system [employer] generated this result transmit michael reference range [...] A Epithelial (test code = NSE) 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 at 6268 Reported and signed by: Neo Huber MD PAGE 1 Signed Report (CONTINUED) FAX: Annemarie Tesfaye [phone] [place]: St: REG------- Name: LAUREN BETH [facility] : 1985 Age/S: 35/F [address] Unit: [id number] Loc: [place] [address] Phys: Annemarie Tesfaye NP Acct: [id number] Dis Date: Status: REG ER PHONE #: [phone] Exam Date: 12/13/2020 0325 FAX #: [phone] Reason: DIFFUSE ABD PAIN WORSE RLQ, HX APPY, ROSE EXAMS:CPT CODE: [id number] CT ABD PELVIS W/CONT 23700 <Continued> CC: Annemarie Tesfaye NP Technologist: PAMELA KRISHNAMURTHY; Jessi SANCHEZ JR Trnscrd Dt/Tm: 12/13/2020 (6637) VereniceMA50 [facility] D/T: S: 12/13/2020 (0349 PAGE 2 Signed ReportCOMPREHENSIVE METABOLIC [id number] 03:32:00 Test Item Value Reference Range Interpretation [...] U/L 38-126 N (test code = ALKP) [id number] 03:32:00 Test Item Value Reference Range Interpretation Comments LIPASE (test code = LIP) 82 U/L 23-300 N BEDSIDE [id number] 03:24:00 Test Item Value Reference Range Interpretation Comments BEDSIDE CREATININE (test code = 0.60 mg/dL 0.51-1.19 N CREATBED) CBC W/AUTO [id number] 03:14:00 Test Item Value Reference Range Interpretation [...] 0.0-0.1 N UA RFLX MICR CULT IF [id number] 02:59:00 Test Item Value Reference Range Interpretation [...] OF URINE: VOIDEDSTAT LAB CBC WITH AUTO [id number] 15:12:00 Test Item Value Reference Range Interpretation [...] entered by [id number] on 12/12/2020 15:12 [facility] CHEM [id number] 14:08:00 Test Item Value Reference Range Interpretation [...] code = CREA) 0.5 mg/dl 0.6-1.3 L [facility] URINALYSIS WITHOUT [id number] 12:08:00 Test Item Value Reference Range Interpretation Comments Color (test code = Light-Yellow UCOLR) Clarity (test code = Cloudy UCLAR) Glucose (test code = NEGATIVE NEGATIVE N UGLUC) Bilirubin (test code NEGATIVE NEGATIVE N = UBILI) Ketones (test code = NEGATIVE NEGATIVE N UKET) Specific [place] 1.015 1.005-1.030 A (test code = USPGR) Blood (test code = NEGATIVE NEGATIVE N UBLD) PH (test code = UPH) 7.0 4.5-8.0 A Protein (test code = NEGATIVE NEGATIVE N UPROT) Urobilinogen (test 0.2 See_Comment N [Automat ed message] code = U UROB) The system [facility] generated this result transmit michael reference range : 0.2. The refere nce range was not u sed to interpret th is result as normal/abnormal . Nitrite (test code = NEGATIVE NEGATIVE N UNITR) Leukocyte Esterase NEGATIVE NEGATIVE N (test code = ULEUK) [facility] (LIVER)2020-11-21 08:43:00 Test Item Value [...] (test code = 0.4 mg/dl 0.0-1.1 IBIL) [facility] WITH [id number] 08:31:00 Test Item Value Reference Range Interpretation Comments Color (test code = Light-Yellow UCOLR) Clarity (test code = Clear UCLAR) Glucose (test code = NEGATIVE NEGATIVE N UGLUC) Bilirubin (test code NEGATIVE NEGATIVE N = UBILI) Ketones (test code = NEGATIVE NEGATIVE N UKET) Specific [place] 1.020 1.005-1.030 A (test code = USPGR) Blood (test code = NEGATIVE NEGATIVE N UBLD) PH (test code = UPH) 6.5 4.5-8.0 A Protein (test code = NEGATIVE NEGATIVE N UPROT) Urobilinogen (test 0.2 See_Comment N [Automat ed message] code = U UROB) The system [employer] generated this result transmit michael reference range [...] TNTC 0-10 A (test code = SQEP) [facility] CHEM [id number] 08:27:00 Test Item Value Reference Range Interpretation [...] code = CREA) 0.5 mg/dl 0.6-1.3 L [facility] CBC WITH AUTO [id number] 08:26:00 Test Item Value Reference Range Interpretation [...] % 0.0-0.4 [facility] ABDOMEN 2 VIEWS FLAT / [id number] 08:18:50[facility])Name: LAUREN BETH : 1985 Sex: FProcedure: XR ABDOMEN 2 VIEWS FLAT / UPRIGHTOrder Date: 11/21/2020 7:43 AMOrdering Provider: REHAN Farrellinical Indication: [id number]: Abdominal painComparison: Nov 14 2020Findings:Bowel gas pattern is non-obstructive. No pneumoperitoneum.There is moderate volume stool burden.Surgical clips in the right upper quadrant of the abdomen.Impression:Nonobstructive bowel gas pattern.This final reportwas electronically signed by Dr Silver Benitez MD :13 AMDictated By: Maggie BENITEZte: 11/21/2020 08:13MMST[facility] LUFKINCT ABDOMEN/PELVIS W/O CONTRAST 2020-11-14 14:11:31 [facility] ([facility])Name: LAUREN BETH : 1985 Sex: FProcedure: CT ABDOMEN/PELVIS W/O CONTRASTOrder Date: 11/14/2020 1:22 PMOrdering Provider: BILLY ACOSTA .Clinical Indication: [id number]: Right flank painComparison: Renal ultrasound November 08, [...] MD 12:05 PMDictated By: FARZAD DEWITTDate: 11/14/2020 14:05MM OF [facility] , [id number] 13:31:00 Test Item Value Reference Range Interpretation Comments (Urine) (test code = Negative PREGU) ONLY AVAILABLE 8A-12M[facility] CHEM [id number] 11:09:00 Test Item Value Reference Range Interpretation [...] code = CREA) 0.5 mg/dl 0.6-1.3 L [facility] URINALYSIS WITHOUT [id number] 11:08:00 Test Item Value Reference Range Interpretation Comments Color (test code = Yellow Lt. Yellow A UCOLR) Clarity (test code = Clear UCLAR) Glucose (test code = Negative Negative N UGLUC) Bilirubin (test code Negative Negative N = UBILI) Ketones (test code = Negative Negative N UKET) Specific [place] 1.025 1.005-1.030 A (test code = USPGR) Blood (test code = Trace-intact Negative A UBLD) PH (test code = UPH) 6.0 4.5-8.0 A Protein (test code = Negative Negative N UPROT) Urobilinogen (test 0.2 See_Comment N [Automat ed message] code = U UROB) The system [facility] generated this result transmit michael reference range : 0.2. The refere nce range was not u sed to interpret th is result as normal/abnormal . Nitrite (test code = Negative Negative N UNITR) Leukocyte Esterase Negative Negative N (test code = ULEUK) [facility] CBC WITH AUTO [id number] 11:05:00 Test Item Value Reference Range Interpretation [...] (test code = IG%) 0.4 % 0.0-0.4 [facility], [id number] 08:43:00Specimen: Urine SpecimensCollected: 11/08/2020 09:59 Status: Final Last Updated: 11/09/2020 08:43 CULTURE (Final) (Final) Few Mixed Body Gabriela Isolated No Pathogens [facility]olatedAsc[facility] BLADDER (KIDNEYS)2020-11-08 12:00:28[facility]Name: LAUREN BETH : 1985 Sex: FProcedure: [...] thickness is within normal limits. 3 mm n onobstructing stone inthe lower pole of the kidney.Bladder: Unremarkable .Impression:1. Nonobstructing left renal stone.2. Otherwise, negative exam.This final report was electronically signed by Dr Silver Benitez MD 111:54 AMDictated By: GLORY BENITEZKDate: 11/08/2020 11:54[facility] OF DOWNEYURINALYSIS WITH [id number] 10:58:00 Test Item Value Reference Range Interpretation Comments Color (test code = Yellow UCOLR) Clarity (test code = Clear UCLAR) Glucose (test code = NEGATIVE NEGATIVE N UGLUC) Bilirubin (test code = NEGATIVE NEGATIVE N UBILI) Ketones (test code = NEGATIVE NEGATIVE N UKET) Specific [place] (test 1.030 1.005-1.030 A code = USPGR) Blood (test code = NEGATIVE NEGATIVE N UBLD) PH (test code = UPH) 6.0 4.5-8.0 A Protein (test code = NEGATIVE NEGATIVE N UPROT) Urobilinogen (test code 0.2 See_Comment N [Au tomated message] = U UROB) The system [employer] generated this result transmitted ref erence range: [...] 51-74 0-10 A (test code = SQEP) [facility], [id number] 08:13:00ER 17Specimen: Urine SpecimensCollected: 11/01/2020 01:10 Status: Final Last Updated: 11/02/2020 08:13 (1) ER 17 CULTURE (Final) (Final) Few Mixed Body Gabriela Isolated No Pathogens IsolatedDepartment Of Veterans Affairs [facility]-LufkinXR ABD SERIES W/PA CXR 2020-11-01 03:48:37 [facility])Name: LAUREN BETH : 1985 Sex: FPROCEDURE [...] CDT.Dictated By: FILIPPO RAMOSDate: 11/01/2020 03:48[facility] OF DOWNEYHEPATIC FUNCTION PANEL (LIVER)2020-11-01 02:14:00 Test Item Value [...] (test code = 0.1 mg/dl 0.0-1.1 IBIL) [address]M [id number] 01:57:00 Test Item Value Reference Range Interpretation [...] = CREA) 0.5 mg/dl 0.6-1.3 L ER [address] [place] [address]-LufkinURINALYSIS WITH [id number] 01:56:00 Test Item Value Reference Range Interpretation Comments Color (test code = Light-Yellow UCOLR) Clarity (test code = Clear UCLAR) Glucose (test code = 50 NEGATIVE A UGLUC) Bilirubin (test code NEGATIVE NEGATIVE N = UBILI) Ketones (test code = NEGATIVE NEGATIVE N UKET) Specific [place] 1.025 1.005-1.030 A (test code = USPGR) Blood (test code = NEGATIVE NEGATIVE N UBLD) PH (test code = UPH) 6.0 4.5-8.0 A Protein (test code = TRACE NEGATIVE A UPROT) Urobilinogen (test 0.2 See_Comment N [Automat ed message] code = U UROB) The [facility] generated this result transmit michael reference [...] 41-50 0-10 A (test code = SQEP) [address] LAB CBC WITH AUTO [id number] 01:55:00 Test Item Value Reference Range Interpretation [...] code = IG%) 0.4 % 0.0-0.[address] [place], [place] [address]HEPATIC FUNCTION PANEL (LIVER)2020-10-05 01:26:00 Test Item Value [...] code = 0.1 mg/dl 0.0-1.1 IBIL) er [address] [place], [place] [address]kinLIPASE2021-04-07 01:26:00 Test Item Value Reference Range Interpretation Comments Lipase (test code = LIPA) 154 U/L 73-[address] [place] [address] LAB CHEM [id number] 01:15:00 Test Item Value Reference Range Interpretation [...] code = CREA) 0.6 mg/dl 0.6-1.[address] [place] [address] LAB , [id number] 01:14:00 Test Item Value Reference Range Interpretation Comments (Urine) (test code = Negative PREGU) er [address] [place] [address] LAB CBC WITH AUTO [id number] 01:13:00 Test Item Value Reference Range Interpretation [...] = IG%) 0.9 % 0.0-0.[address] [place], [place] [address]Tejyqg-[id number] 04:21:00 Test Item Value Reference Range Interpretation Comments Lipase (test code = LIPA) 146 U/L 73-393 [facility]watosaHEPATIC FUNCTION PANEL (LIVER)2020-09-18 04:21:00 Test Item Value [...] (test code = 0.1 mg/dl 0.0-1.1 IBIL) [facility]-AuburnAMYLASE, [id number] 04:21:00 Test Item Value Reference Range Interpretation Comments Amylase (test code = AMYL) 47 U/L 25-115 [facility]-fkinURINALYSIS WITH [id number] 03:06:00 Test Item Value Reference Range Interpretation Comments Color (test code = Light-Yellow UCOLR) Clarity (test code = Clear UCLAR) Glucose (test code = NEGATIVE NEGATIVE N UGLUC) Bilirubin (test code NEGATIVE NEGATIVE N = UBILI) Ketones (test code = TRACE NEGATIVE A UKET) Specific [place] 1.025 1.005-1.030 A (test code = USPGR) Blood (test code = NEGATIVE NEGATIVE N UBLD) PH (test code = UPH) 5.5 4.5-8.0 A Protein (test code = NEGATIVE NEGATIVE N UPROT) Urobilinogen (test 0.2 See_Comment N [Automat ed message] code = U UROB) [facility] generated this result transmit michael reference [...] SEEN A Epithelial (test code = NSE) [facility] LAB CHEM [id number] 02:51:00 Test Item Value Reference Range Interpretation [...] (test code = CREA) 0.6 mg/dl 0.6-1.3 [facility] LAB CBC WITH AUTO [id number] 02:50:00 Test Item Value Reference Range Interpretation [...] code = IG%) 0.5 % 0.0-0.4 H [facility]-[place]kinXR ABDOMEN 1 VIEW (KUB)2020-09-12 01:51:21 [facility] ([facility]/[place])Name: LAUREN BETH : 1985 Sex: FPROCEDURE [...] CDT.Dictated By: CELESTINO ALLENDate: 09/12/2020 01:50[facility] LAB CBC WITH AUTO [id number] 01:29:00 Test Item Value Reference Range Interpretation [...] (test code = IG%) 0.4 % 0.0-0.4 [facility] LAB CHEM [id number] 01:28:00 Test Item Value Reference Range Interpretation [...] (test code = CREA) 0.6 mg/dl 0.6-1.3 [facility]inURINALYSIS WITH [id number] 03:04:00 Test Item Value Reference Range Interpretation Comments Color (test code = Yellow UCOLR) Clarity (test code = Clear UCLAR) Glucose (test code = 100 NEGATIVE A UGLUC) Bilirubin (test code = NEGATIVE NEGATIVE N UBILI) Ketones (test code = TRACE NEGATIVE A UKET) Specific [place] (test >=1.030 1.005-1.030 A code = USPGR) Blood (test code = NEGATIVE NEGATIVE N UBLD) PH (test code = UPH) 5.5 4.5-8.0 A Protein (test code = NEGATIVE NEGATIVE N UPROT) Urobilinogen (test code 0.2 See_Comment N [Au tomated message] = U UROB) The system [employer] generated this result transmitted ref erence range: [...] code = 3+ None Seen,Trace A UBACT) [facility]-[id number] 03:01:00 Test Item Value Reference Range Interpretation [...] ( 4 - SerumAlbumin)] EGFR if >60 Mauritian (test code mL/min/1.73m\\ = EGFRAA) S\\2 EGFR if Non- >60 Estimate d Glomerular Mauritian (test code mL/min/1.73m\\ Filtrat ion Rate (eGFR) [...] and management of c hronic kidney failure. [facility] HospitalUxdpip-[id number] 03:01:00 Test Item Value Reference Range Interpretation Comments Lipase (test code = LIPA) 145 U/L 73-393 [facility] LAB TEST, Serum Qualitative 2020-08-22 02:48:00 Test Item Value Reference Range Interpretation Comments (Serum) (test code = Negative PREGS) [facility] LAB CBC WITH AUTO [id number] 02:28:00 Test Item Value Reference Range Interpretation [...] 0.5 % 0.0-0.4 H [facility]watosaHEPATIC FUNCTION PANEL (LIVER)2020-08-06 02:59:00 Test Item Value [...] code = 0.1 mg/dl 0.0-1.1 IBIL) ER [address] [place], [place] [address]Plfiaj-[id number] 02:59:00 Test Item Value Reference Range Interpretation Comments Lipase (test code = LIPA) 167 U/L 73-[address]-LufkinURINALYSIS WITH [id number] 02:48:00 Test Item Value Reference Range Interpretation Comments Color (test code = UCOLR) Yellow Clarity (test code = UCLAR) Clear Glucose (test code = UGLUC) NEGATIVE NEGATIVE N Bilirubin (test code = UBILI) NEGATIVE NEGATIVE N Ketones (test code = UKET) NEGATIVE NEGATIVE N Specific [place] (test code = >=1.030 1.005-1.030 A USPGR) [...] code = UBACT) 4+ None Seen,Trace A [address]-LufkinCT ABDOMEN/PELVIS W/O [id number] 02:34:52ER 16 R/O KIDNEY STONE [facility]Name: LAUREN BETH : [id number] Sex: FPROCEDURE INFORMATION:Exam: CT Abdomen And Pelvis [...] CDT.Dictated By: HOLLIS FERRERADate: 08/06/2020 02:34[facility] CHEM 2020-08-06 02:29:00 Test Item Value Reference Range [...] = CREA) 0.4 mg/dl 0.6-1.3 L ER [address] [place] [address] LAB CBC WITH AUTO [id number] 02:29:00 Test Item Value Reference Range Interpretation [...] = IG%) 0.7 % 0.0-0.4 H ER [address] [place], [place] [address]Jwlrzd-[id number] 09:31:00 Test Item Value Reference Range Interpretation Comments Lipase (test code = LIPA) 117 U/L 73-393 [facility]watosaHEPATIC FUNCTION PANEL (LIVER)2020-07-19 09:31:00 Test Item Value [...] (test code = 0.3 mg/dl 0.0-1.1 IBIL) [facility]-[place]kinXR ABDOMEN 2 VIEWS FLAT / [id number] 09:22:50[facility] ([facility])Name: LAUREN BETH : [id number] Sex: FProcedure: XR ABDOMEN 2 VIEWS FLAT / UPRIGHTOrder Date: 07/19/2020 8:40 AMOrdering Provider: REHAN COTTON .Clinical Indication: [id number]: Abdominal painComparison: July 05, 2020Findings:Postoperative change consisting of gastric sleeve and cholecystectomy.There is no small or large bowel distention.There are no air- fluid levels.There is no pneumoperitoneum.There are no suspicious ca lcifications.There is no skeletal abnormality.Impression:1. No pneumoperitoneum or bowel obstruction.2. Postoperative change consisting of gastric sleeve and cholecystectomy.3. Exam otherwise negative.This final report was electronically signed by Dr Farzad Dewitt MD :17 AMDictated By: FARZAD DEWITTDate: 07/19/2020 09:17[facility] LAB CHEM [id number] 09:10:00 Test Item Value Reference Range Interpretation [...] code = CREA) 0.5 mg/dl 0.6-1.3 L [facility] LAB CBC WITH AUTO [id number] 09:09:00 Test Item Value Reference Range Interpretation [...] code = IG%) 0.7 % 0.0-0.4 H [facility] LAB URINALYSIS WITHOUT [id number] 09:08:00 Test Item Value Reference Range Interpretation Comments Color (test code = UCOLR) Yellow Lt. Yellow A Clarity (test code = UCLAR) Clear Glucose (test code = UGLUC) Negative Negative N Bilirubin (test code = UBILI) Negative Negative N Ketones (test code = UKET) Negative Negative N Specific [place] (test code = USPGR) >=1.030 1.005-1.030 A Blood (test code = UBLD) Negative Negative N PH (test code = UPH) 6.0 4.5-8.0 A Protein (test code = UPROT) Negative Negative N Urobilinogen (test code = U UROB) 0.2 >0.2 N Nitrite (test code = UNITR) Negative Negative N Leukocyte Esterase (test code = Negative Negative N ULEUK) [facility]-fkinCULTURE, [id number] 08:00:00Specimen: Urine SpecimensCollected: 07/05/2020 03:00 Status: Final Last Updated: 07/07/2020 08:00 CULTURE (Final) (Final) No Growth After 48 HoursDepartment Of Veterans Affairs [facility] HospitalkinXR ABDOMEN 1 VIEW (KUB)2020-07-05 04:07:04 [facility] ([facility]/[place])Name: LAUREN BETH : [id number] Sex: FPROCEDURE INFORMATION:Exam: XR Abdomen, 1 ViewExam [...] CDT.Dictated By: OSKAR CRANEte: 07/05/2020 04:06[facility] , [id number] 03:54:00 Test Item Value Reference Range Interpretation Comments (Urine) (test code = Negative PREGU) [facility] LAB CHEM [id number] 03:53:00 Test Item Value Reference Range Interpretation [...] code = CREA) 0.5 mg/dl 0.6-1.3 L [facility] LAB CBC WITH AUTO [id number] 03:51:00 Test Item Value Reference Range Interpretation [...] code = IG%) 0.4 % 0.0-0.[address] [facility] [address] HospitalLufkinURINALYSIS WITH [id number] 03:33:00 Test Item Value Reference Range Interpretation Comments Color (test code = UCOLR) Yellow Clarity (test code = UCLAR) Clear Glucose (test code = UGLUC) NEGATIVE NEGATIVE N Bilirubin (test code = UBILI) Small NEGATIVE A Ketones (test code = UKET) TRACE NEGATIVE A Specific [place] (test code = USPGR) 1.020 1.005-1.030 A [...] code = UBACT) Trace None Seen,Trace N [facility]-LufkinCT ABDOMEN/PELVIS W/[id number] 16:44:35 [facility])Name: LAUREN BETH : [id number] Sex: FProcedure: CT ABDOMEN/PELVIS W/CONTRASTOrder date: 06/07/2020 3:47 PMOrdering Provider: REHAN Farrellinical Indication: [id number]: Left flank painComparison: 06/07/20Technique: Multiple axial helical [...] PMDictated By: WILEY VELÁZQUEZDate: 06/07/2020 16:38[facility] DOWNEYURINALYSIS WITH [id number] 15:22:00 Test Item Value Reference Range Interpretation Comments Color (test code = UCOLR) Yellow Clarity (test code = UCLAR) Clear Glucose (test code = UGLUC) NEGATIVE NEGATIVE N Bilirubin (test code = UBILI) NEGATIVE NEGATIVE N Ketones (test code = UKET) NEGATIVE NEGATIVE N Specific [place] (test code = USPGR) 1.020 1.005-1.030 A [...] code = UBACT) Trace None Seen,Trace N [facility] LAB CHEM [id number] 15:10:00 Test Item Value Reference Range Interpretation [...] code = CREA) 0.4 mg/dl 0.6-1.3 L [facility] LAB CBC WITH AUTO [id number] 15:08:00 Test Item Value Reference Range Interpretation [...] code = IG%) 0.5 % 0.0-0.4 H [facility]-LufkinCT ABD/ PELVIS W/O CON (RENAL STONE)2020-06-07 14:56:05[facility] ([facility]/[place])Name: LAUREN BETH : [id number] Sex: FProcedure: CT ABD/ PELVIS W/O CON (RENAL STONE)Order date: 06/07/2020 2:18 PMOrdering Provider: REHAN Farrellinical Indication: [id number]: Left flank painComparison: 05/31/20TECHNIQUE: Using a helical [...] PMDictated By: WILEY VELÁZQUEZDate: 06/07/2020 14:49[facility] ABDOMEN/PELVIS W/O [id number] 12:27:07NPO 4 hours. Do not withhold meds hyst [facility])Name: LAUREN BETH : [id number] Sex: FProcedure: CT ABDOMEN/PELVIS W/O CONTRASTOrder Date: 05/31/2020 10:25 AMOrdering Provider: ME ANN MARIE MCBRIDEClinical Indication: [id number]: Pain radiating to right flankComparison: March 20, [...] PMDictated By: FARZAD DEWITTDate: 05/31/2020 12:20[facility] OF [id number] 11:48:00 Test Item Value Reference Range Interpretation Comments Lipase (test code = LIPA) 116 U/L 73-393 [facility] LAB URINALYSIS WITHOUT [id number] 10:59:00 Test Item Value Reference Range Interpretation Comments Color (test code = UCOLR) Light yellow Lt. Yellow A Clarity (test code = UCLAR) Clear Glucose (test code = UGLUC) Negative Negative N Bilirubin (test code = UBILI) Negative Negative N Ketones (test code = UKET) Negative Negative N Specific [place] (test code = 1.025 1.005-1.030 A USPGR) Blood (test code = UBLD) Negative Negative N PH (test code = UPH) 6.0 4.5-8.0 A Protein (test code = UPROT) Negative Negative N Urobilinogen (test code = U 0.2 >0.2 N UROB) Nitrite (test code = UNITR) Negative Negative N Leukocyte Esterase (test code = Negative Negative N ULEUK) [facility] LAB CBC WITH AUTO [id number] 10:58:00 Test Item Value Reference Range Interpretation [...] code = IG%) 0.5 % 0.0-0.4 H [facility] LAB CHEM [id number] 10:53:00 Test Item Value Reference Range Interpretation [...] 0.6-1.3 L [facility] ABDOMEN 1 VIEW (KUB)2020-04-25 21:02:16 [facility])Name: LAUREN BETH [facility]: [id number] Sex: FPROCEDURE INFORMATION:Exam: XR Abdomen, 1 ViewExam [...] PM CDT. Dictated By: TEJAS RODRIGUEZ.Date: 04/25/2020 21:02MM OF DOWNEYURINALYSIS WITH [id number] 18:57:00 Test Item Value Reference Range Interpretation Comments Color (test code = UCOLR) Yellow Lt. Yellow A Clarity (test code = UCLAR) Clear Glucose (test code = UGLUC) Negative Negative N Bilirubin (test code = UBILI) Negative Negative N Ketones (test code = UKET) Negative Negative N Specific [place] (test code = 1.020 1.005-1.030 A USPGR) [...] code = UBACT) 4+ None Seen,Trace A [facility] LAB CBC WITH AUTO [id number] 18:55:00 Test Item Value Reference Range Interpretation [...] of Platel et clumping was entered by [id number] on 04/25/2020 18:5 5 [facility] LAB CHEM [id number] 18:17:00 Test Item Value Reference Range Interpretation [...] code = CREA) 0.4 mg/dl 0.6-1.3 L [facility]-LufkinRYANLTLISSY, ANAEROBE [id number] 15:20:00FIRST DRAW = 1 aerobic and 1 anerobic CultureSpecimen: BloodCollected: 03/20/2020 18:30 Status: Final Last Updated: 03/26/2020 15:19 (1) FIRST DRAW = 1 aerobic and 1 anerobic Culture CULTURE (Final) (Final) No Growth After 5 DaysDepartment Of [facility] Affairs [facility], [id number] 15:20:00FIRST DRAW = 1 aerobic and 1 anerobic CultureSpecimen: BloodCollected: 03/20/2020 18:30 Status: Final Last Updated: 03/26/2020 15:19 (1) FIRST DRAW = 1 aerobic and 1 anerobic Culture CULTURE (Final) (Final) No Growth After 5 DaysDepartment Of [facility] Affairs [facility]-[place]ufkinCT ABDOMEN/PELVIS W/[id number] 21:46:442 weeks s/p adhesolysis. Vomiting/pain/fever. Please do CT with PO and IV contrastProcedures: CT ABDOMEN/PELVIS W/CONTRASTExam Date: 03/20/2020 6:04 PMOrdering Physician: REHAN COTTONClinical Indication: [id number]: Abdominal painComparison: CT abdomen/pelvis, 02/25/20TECHNIQUE: Spiral multislice [...] MD03/20/2020 9:40 PMDictated By: ELMER PHAMDate: 03/20/2020 21:40[facility] OF DOWNEYHEPATIC FUNCTION PANEL (LIVER)2020-03-20 19:24:00 Test Item Value [...] (test code = 0.3 mg/dl 0.0-1.1 IBIL) [facility] HospitalVzsopl-[id number] 19:24:00 Test Item Value Reference Range Interpretation Comments Lipase (test code = LIPA) 69 U/L 73-393 L [facility] HospitalXyuwjk-[id number] 19:24:00 Test Item Value Reference Range Interpretation Comments Magnesium (test code = MG) 2.0 mg/dl 1.6-2.6 [facility] LAB CHEM [id number] 18:43:00 Test Item Value Reference Range Interpretation [...] code = CREA) 0.5 mg/dl 0.6-1.3 L [facility] LAB LACTIC [id number] 18:42:00 Test Item Value Reference Range Interpretation Comments LACTATE (test code = 2.50 mmol/l 0.90-1.70 R&RB sy rene hassan rn LAC) @1842 [facility] LAB CBC WITH AUTO [id number] 18:41:00 Test Item Value Reference Range Interpretation [...] (test code = IG%) 0.4 % 0.0-0.4 [facility]-LufkinSP PERC PLMNT MIDLINE NO PORT > [...] secured to the skin in the usual fashion.Hydraulic Blocker images were recorded and stored in the medical [facility] fordocumentation. The patient tolerated the procedure well and there were noimmediate complications.Impression:1. Successful upper extremity vascular access.This final report was electronically signed by Dr Farzad Dewitt MD 03/15/20201:14 PMDictated By: FARZAD DEWITTDate: 03/15/2020 13:14[facility]ALLCORONAVIR[facility] 2019 (IN HOUSE)2020-03-13 21:03:00 Test Item Value Reference Range Interpretation Comments FT (test code Negative Negative N The BioGX SARS -CoV-2 = COVID) (qualifier value) Reagents f or BD MAX System, the Bio Tervela Covid-19, and t he Cepheid Covid-1 9 is for in vitro us e under FDA Emergency U se Authorization o nly. Indeterminate r esults recommend recol lection of specimen. [facility]-LufkinXR ABD SERIES W/PA [id number] 17:33:07 Procedure: XR ABD SERIES W/PA CXROrder [...] PMDictated By: GLORY BENITEZKDate: 03/13/2020 17:26[facility] LAB CBC WITH AUTO [id number] 17:23:00 Test Item Value Reference Range Interpretation [...] entered by [id number] on 03/13/2020 17:23 [facility]conomowockinLIPASE2020-09-13 17:23:00 Test Item Value Reference Range Interpretation Comments Lipase (test code = LIPA) 61 U/L 73-393 L [facility]osaHEPATIC FUNCTION PANEL (LIVER)2020-03-13 17:23:00 Test Item Value [...] (test code = 0.4 mg/dl 0.0-1.1 IBIL) [facility]osaURINALYSIS WITH [id number] 16:54:00 Test Item Value Reference Range Interpretation Comments Color (test code = UCOLR) Yellow Lt. Yellow A Clarity (test code = UCLAR) Clear Glucose (test code = UGLUC) Negative Negative N Bilirubin (test code = UBILI) Negative Negative N Ketones (test code = UKET) Negative Negative N Specific [place] (test code = >=1.030 1.005-1.030 A USPGR) [...] code = UBACT) 4+ None Seen,Trace A [facility] LAB CHEM [id number] 16:37:00 Test Item Value Reference Range Interpretation [...] code = CREA) 0.4 mg/dl 0.6-1.3 L [facility] PERC PLMNT MIDLINE NO PORT > [...] MD 03/02/202012:17 PMDictated By: GLORY BENITEZKDate: 03/02/2020 12:17[facility] 2019 (IN HOUSE)2020-03-01 18:48:00 Test Item [...] r esults recommend recol lection of specimen. [facility] Community HospitalkinPT AND [id number] 11:51:00 Test Item Value Reference Range Interpretation Comments Protime (test code 9.8 seconds 9.5-12.1 = PT) INR (test code = 0.9 0.9-1.1 INR results are intended INR) ONLY to monitor Oral Anticoagulant t herapy in stablized patie nts. The INR Therapeutic Range is 2.0 - 3.0 Patie nts with a mechanical he art, the INR Range is 2. 5 - 3.5 [facility] WauwatosaPTT2020-09-01 11:51:00 Test Item Value Reference Range Interpretation Comments aPTT (test code = PTT) 27.4 seconds 23.9-30.7 [facility] ([facility]2020-03-01 11:44:00 Test Item Value Reference [...] WILL BE NOTED ON THE RE PORT. [facility]-NatachaCULTURE, [id number] 08:08:00Specimen: Urine RandomCollected: 02/25/2020 11:27 Status: Final Last Updated: 02/27/2020 08:08 CULTURE (Final) (Final) No Growth After 48 HoursDepartment Of [facility] [id number] 05:38:00 Test Item Value Reference Range Interpretation [...] 0.5-1.3 code = CREA) EGFR if >60 Mauritian (test code mL/min/1.73m\\ = EGFRAA) S\\2 EGFR if Non- >60 Estimate d Glomerular Mauritian (test code mL/min/1.73m\\ Filtrat ion Rate (eGFR) [...] and management of c hronic kidney failure. [facility] (Ultra Sensitive)2020-02-26 05:38:00 Test Item Value Reference Range Interpretation Comments TSH (test code = TSH) 0.04 mIU/L 0.35-3.74 L [facility] WITH AUTO [id number] 05:18:00 Test Item Value Reference Range Interpretation [...] 0.5 % 0.0-0.4 H IG%) CBC AUTO diffMeProHealth [facility] Hospital OconomowockinCORONAVIRUS 2018 (IN HOUSE)2020-02-25 14:06:00 Test Item Value Reference Range Interpretation Comments FT (test code Negative Negative N The BioGX SARS -CoV-2 = COVID) (qualifier value) Reagents f or BD MAX System, the Bio Fire Covid-19, and t he Cepheid Covid-1 9 is for in vitro us e under FDA Emergency U se Authorization o nly. Indeterminate r esults recommend recol lection of specimen. [facility]watosaURINALYSIS WITH [id number] 12:56:00 Test Item Value Reference Range Interpretation Comments Color (test code = UCOLR) Yellow Lt. Yellow A Clarity (test code = UCLAR) Slightly Cloudy Glucose (test code = UGLUC) Negative Negative N Bilirubin (test code = UBILI) Negative Negative N Ketones (test code = UKET) Negative Negative N Specific [place] (test code = >=1.030 1.005-1.030 A USPGR) [...] code = UBACT) Trace None Seen,Trace N [facility] WauwatosaLIPASE2020-08-27 12:52:00 Test Item Value Reference Range Interpretation Comments Lipase (test code = LIPA) 90 U/L 73-393 [facility]auwatosaHEPATIC FUNCTION PANEL (LIVER)2020-02-25 12:52:00 Test Item Value [...] (test code = 0.3 mg/dl 0.0-1.1 IBIL) [facility]-[place]kinCT ABDOMEN/PELVIS W/[id number] 12:42:41NPO 4 hours. Do not withhold medsProcedure: [...] MD 02/25/202012:36 PMDictated By: WILEY VELÁZQUEZDate: 02/25/2020 12:36[facility] 8 2020-02-25 12:07:00 Test Item [...] code = CREA) 0.5 mg/dl 0.6-1.3 L [facility] CBC WITH AUTO [id number] 12:05:00 Test Item Value Reference Range Interpretation [...] (test code = IG%) 0.3 % 0.0-0.4 [facility] CBC WITH AUTO [id number] 03:15:00 Test Item Value Reference Range Interpretation [...] code = IG%) 0.6 % 0.0-0.4 H [facility] CHEM [id number] 02:55:00 Test Item Value Reference Range Interpretation [...] code = CREA) 0.5 mg/dl 0.6-1.3 L [facility] ABDOMEN 1 VIEW (KUB)2020-02-25 02:45:30 PROCEDURE INFORMATION:Exam: [...] By: JORGE LUIS WHITEDate: 02/25/2020 02:45[facility] , URINE 2020-02-25 01:12:00 Test Item Value Reference Range Interpretation Comments (Urine) (test code = Negative PREGU) [facility] URINALYSIS WITHOUT [id number] 01:11:00 Test Item Value Reference Range Interpretation Comments Color (test code = UCOLR) Yellow Lt. Yellow A Clarity (test code = UCLAR) Clear Glucose (test code = UGLUC) Negative Negative N Bilirubin (test code = UBILI) Negative Negative N Ketones (test code = UKET) Negative Negative N Specific [place] (test code = USPGR) >=1.030 1.005-1.030 A Blood (test code = UBLD) Negative Negative N PH (test code = UPH) 5.5 4.5-8.0 A Protein (test code = UPROT) Negative Negative N Urobilinogen (test code = U UROB) 0.2 >0.2 N Nitrite (test code = UNITR) Negative Negative N Leukocyte Esterase (test code = Negative Negative N ULEUK) [facility] 1 VIEW (KUB)2020-02-10 06:46:05 Procedure: XR ABDOMEN 1 VIEW (KUB)Order date: 02/10/2020 4:01 AMOrdering Provider: JUAN Galiciainical Indication: Abdominal painComparison: NoneFindings:There is no small or large bowel distention.There is no pneumoperitoneum.There are no suspicious calcifications.There is no skeletal abnormality.Impression:1. Negative single view abdomen.This final report was electronically signed by Dr Wiley Velázquez MD 02/10/20206:39 AMDictated By: WILEY VELÁZQUEZDate: 02/10/2020 06:39[facility] BLADDER (KIDNEYS)2020-02-10 05:31:33PROCEDURE INFORMATION:Exam: US [...] By: JORGE LUIS WHITEDate: 02/10/2020 05:31[facility] OF DOWNEYURINALYSIS WITH [id number] 05:10:00 Test Item Value Reference Range Interpretation Comments Color (test code = UCOLR) Yellow Lt. Yellow A Clarity (test code = UCLAR) Clear Glucose (test code = UGLUC) >=1000 Negative A Bilirubin (test code = UBILI) Negative Negative N Ketones (test code = UKET) Negative Negative N Specific [place] (test code = 1.015 1.005-1.030 A USPGR) [...] = UBACT) None Seen None Seen,Trace N [facility]2020-08-12 04:42:00 Test Item Value Reference Range Interpretation Comments Lipase (test code = LIPA) 91 U/L 73-393 [facility]osaHEPATIC FUNCTION PANEL (LIVER)2020-02-10 04:42:00 Test Item Value [...] (test code = 0.2 mg/dl 0.0-1.1 IBIL) [facility] CHEM [id number] 04:27:00 Test Item Value Reference Range Interpretation [...] (test code = CREA) 0.6 mg/dl 0.6-1.3 [facility] , [id number] 04:24:00 Test Item Value Reference Range Interpretation Comments (Urine) (test code = Negative PREGU) [facility] CBC WITH AUTO [id number] 04:22:00 Test Item Value Reference Range Interpretation [...] code = IG%) 0.5 % 0.0-0.4 H [facility]CT L SPINE W/O [id number] 12:46:24 Procedure: CT L SPINE W/O CONTRASTOrder date: 01/25/2020 11:46 AMOrdering Provider: DONALD Healyinical Indication: [id number]: Low back painComparison: NoneTechnique: Using a multislice [...] Dr Wiley Velázquez MD 01/25/202012:39 PMDictated By: IWLEY VELÁZQUEZDate: 01/25/2020 12:39[facility] MARSHALLHEPATIC FUNCTION PANEL (LIVER)2019-12-09 05:49:00 Test Item Value [...] code = 0.3 mg/dl 0.0-1.1 IBIL) [address]-[id number] 05:49:00 Test Item Value Reference Range Interpretation Comments Lipase (test code = LIPA) 105 U/L 73-[address] [place] [address] LAB CHEM [id number] 05:06:00 Test Item Value Reference Range Interpretation [...] = CREA) 0.5 mg/dl 0.6-1.3 L ER [address] [place] [address] LAB CBC WITH AUTO [id number] 05:04:00 Test Item Value Reference Range Interpretation [...] (test code = IG%) 0.4 % 0.0-0.[address]-[id number] 02:23:00 Test Item Value Reference Range Interpretation [...] ( 4 - SerumAlbumin)] EGFR if >60 Mauritian (test code mL/min/1.73m\\ = EGFRAA) S\\2 EGFR if Non- >60 Estimate d Glomerular Mauritian (test code mL/min/1.73m\\ Filtrat ion Rate (eGFR) [...] and management of c hronic kidney failure. [facility]kinURINALYSIS WITH [id number] 02:11:00 Test Item Value Reference Range Interpretation Comments Color (test code = UCOLR) Yellow Lt. Yellow A Clarity (test code = UCLAR) Clear Glucose (test code = UGLUC) Negative Negative N Bilirubin (test code = UBILI) Negative Negative N Ketones (test code = UKET) Trace Negative A Specific [place] (test code = USPGR) >=1.030 1.005-1.030 A [...] code = UBACT) 2+ None Seen,Trace A [facility] CBC WITH AUTO [id number] 02:03:00 Test Item Value Reference Range Interpretation [...] (test code = IG%) 0.4 % 0.0-0.4 [facility] ABDOMEN/PELVIS W/[id number] 22:43:00NPO 4 hours. Do not withhold meds [...] 201910:42 PM CDT.Dictated By: JOSUÉ MCGHEEDate: 10/07/2019 22:42[facility] 2019-10-07 22:05:00 Test Item Value Reference Range [...] 0.5-1.3 code = CREA) EGFR if >60 Mauritian (test code mL/min/1.73m\\ = EGFRAA) S\\2 EGFR if Non- >60 Estimate d Glomerular Mauritian (test code mL/min/1.73m\\ Filtrat ion Rate (eGFR) [...] and management of c hronic kidney failure. [facility]-[place], [id number] 22:05:00 Test Item Value Reference Range Interpretation Comments Amylase (test code = AMYL) 43 U/L 25-115 [facility] HospitalHrxhmw-[id number] 22:05:00 Test Item Value Reference Range Interpretation Comments Lipase (test code = LIPA) 95 U/L 73-393 [facility]-fkinURINALYSIS WITH [id number] 21:49:00 Test Item Value Reference Range Interpretation Comments Color (test code = UCOLR) Yellow Lt. Yellow A Clarity (test code = UCLAR) Clear Glucose (test code = UGLUC) Negative Negative N Bilirubin (test code = UBILI) Negative Negative N Ketones (test code = UKET) 15 Negative A Specific [place] (test code = USPGR) >=1.030 1.005-1.030 A [...] code = UBACT) 3+ None Seen,Trace A [facility] CBC WITH AUTO [id number] 21:45:00 Test Item Value Reference Range Interpretation [...] (test code = IG%) 0.4 % 0.0-0.4 [facility] LAB , [id number] 21:36:00 Test Item Value Reference Range Interpretation Comments (Urine) (test code = Negative PREGU) [facility]CT ABDOMEN/PELVIS W/O [id number] 03:56:36 PROCEDURE INFORMATION:Exam: CT Abdomen And Pelvis [...] CDT.Dictated By: AMY ORDOÑEZDate: 09/20/2019 03:56 [facility] [id number] 02:07:00 Test Item Value Reference Range Interpretation [...] ( 4 - SerumAlbumin)] EGFR if >60 Mauritian (test code mL/min/1.73m\\ = EGFRAA) S\\2 EGFR if Non- >60 Estimate d Glomerular Mauritian (test code mL/min/1.73m\\ Filtrat ion Rate (eGFR) [...] and management of c hronic kidney failure. [facility]XR ABDOMEN 2 VIEWS FLAT / [id number] 02:01:15PROCEDURE INFORMATION:Exam: XR Abdomen, 2 ViewsExam date [...] 2:01 AM CDT.Dictated By: AMY ORDOÑEZDate: 09/20/2019 02:01[facility] OF DOWNEYURINALYSIS WITH MICROSCOPIC 2019-09-20 01:56:00 Test Item Value Reference Range Interpretation Comments Color (test code = UCOLR) Yellow Lt. Yellow A Clarity (test code = UCLAR) Clear Glucose (test code = UGLUC) >=1000 Negative A Bilirubin (test code = UBILI) Negative Negative N Ketones (test code = UKET) Trace Negative A Specific [place] (test code = USPGR) >=1.030 1.005-1.030 A [...] code = UBACT) 2+ None Seen,Trace A [facility] CBC WITH AUTO [id number] 01:38:00 Test Item Value Reference Range Interpretation [...] code = IG%) 0.5 % 0.0-0.4 H [facility]CT ABDOMEN/PELVIS W/[id number] 04:23:30 PROCEDURE INFORMATION:Exam: CT Abdomen And Pelvis [...] CDT.Dictated By: SETH MEDINADate: 08/17/2019 04:23[facility] OF [id number] 03:34:00 Test Item Value Reference Range Interpretation Comments Lipase (test code = LIPA) 67 U/L 73-393 L [facility]-[id number] 03:34:00 Test Item Value Reference Range Interpretation [...] ( 4 - SerumAlbumin)] EGFR if >60 Mauritian (test code mL/min/1.73m\\ = EGFRAA) S\\2 EGFR if Non- >60 Estimate d Glomerular Mauritian (test code mL/min/1.73m\\ Filtrat ion Rate (eGFR) [...] and management of c hronic kidney failure. [facility] CBC WITH AUTO [id number] 03:19:00 Test Item Value Reference Range Interpretation [...] code = IG%) 0.7 % 0.0-0.4 H [facility]-fkinURINALYSIS WITH [id number] 03:10:00 Test Item Value Reference Range Interpretation Comments Color (test code = UCOLR) YELLOW Clarity (test code = UCLAR) CLEAR Glucose (test code = UGLUC) NEGATIVE NEGATIVE N Bilirubin (test code = UBILI) NEGATIVE NEGATIVE N Ketones (test code = UKET) NEGATIVE NEGATIVE N Specific [place] (test code = 1.025 1.005-1.030 A USPGR) [...] code = UBACT) 1+ None Seen,Trace A [facility] , [id number] 03:03:00 Test Item Value Reference Range Interpretation Comments (Urine) (test code = Negative PREGU) ONLY AVAILABLE [address] [address] [id number] 20:37:00 Test Item Value Reference Range Interpretation [...] (test code = CREA) 0.6 mg/dl 0.6-1.2 [place] [address] [id number] 20:28:00 Test Item Value Reference Range Interpretation [...] code = MPV) 7.1 fL 8.0-11.0 A [facility] CenterLTMERIT [facility], [id number] 08:44:17rqp5Eynjxthg: Urine SpecimensCollected: 07/12/2019 15:00 Status: Final Last Updated: 2019 08:44 (1) err7 Culture Result (Final) (Final) Moderate Mixed Body Gabriela Isolated No Pathogens Isolated No Further Workup PerformedDepartment Of Veterans Affairs [facility] LIMITED [id number] 17:53:41Procedures: FL LIMITED IVPExam Date: 07/12/2019 3:21 PMOrdering Physician: REHAN Farrellinical Indication: [id number]: Flank painComparison: CT abdomen/pelvis, 05/17/19Findings: Frontal radiographs [...] PMDictated By: ELMER PHAMDate: 07/12/2019 17:47[facility] OF [id number] 15:56:00 Test Item Value Reference Range Interpretation Comments Lipase (test code = LIPA) 97 U/L 73-393 [address] FUNCTION PANEL (LIVER)2019-07-12 15:56:00 Test Item [...] (test code = 0.2 mg/dl 0.0-1.1 IBIL) [address]-[place]ufkinURINALYSIS WITH [id number] 15:51:00 Test Item Value Reference Range Interpretation Comments Color (test code = UCOLR) YELLOW Clarity (test code = UCLAR) CLEAR Glucose (test code = UGLUC) NEGATIVE NEGATIVE N Bilirubin (test code = UBILI) NEGATIVE NEGATIVE N Ketones (test code = UKET) NEGATIVE NEGATIVE N Specific [place] (test code = 1.020 1.005-1.030 A USPGR) [...] code = UBACT) 4+ None Seen,Trace A [address] LAB CHEM [id number] 15:09:00 Test Item Value Reference Range Interpretation [...] (test code = CREA) 0.6 mg/dl 0.6-1.[address] LAB CBC WITH AUTO [id number] 15:08:00 Test Item Value Reference Range Interpretation [...] (test code = IG%) 0.4 % 0.0-0.[address]-[place]kinCT ABDOMEN/PELVIS W/[id number] 16:33:46NPO 4 hours. Do not withhold medsProcedures: CT ABDOMEN/PELVIS W/CONTRASTExam Date: 05/17/2019 1:31 PMOrdering Physician: MERLE Jiménezinical Indication: [id number]: Abdominal painComparison: CT abdomen/pelvis, 04/09/19TECHNIQUE: Spiral multislice [...] MD05/17/2019 4:27 PMDictated By: ELMER PHAMDate: 05/17/2019 16:27[facility] [id number] 16:20:00 Test Item Value Reference Range Interpretation Comments Lipase (test code = LIPA) 70 U/L 73-393 L [facility] CHEM [id number] 15:24:00 Test Item Value Reference Range Interpretation [...] code = CREA) 0.5 mg/dl 0.6-1.3 L [facility] LACTIC [id number] 15:23:00 Test Item Value Reference Range Interpretation Comments LACTATE (test code = LAC) 1.39 mmol/l 0.90-1.70 [facility] CBC WITH AUTO [id number] 15:21:00 Test Item Value Reference Range Interpretation [...] code = IG%) 0.5 % 0.0-0.4 H [facility]kinURINALYSIS WITH [id number] 15:08:00 Test Item Value Reference Range Interpretation Comments Color (test code = UCOLR) YELLOW Clarity (test code = UCLAR) CLEAR Glucose (test code = UGLUC) NEGATIVE NEGATIVE N Bilirubin (test code = UBILI) NEGATIVE NEGATIVE N Ketones (test code = UKET) NEGATIVE NEGATIVE N Specific [place] (test code = 1.025 1.005-1.030 A USPGR) [...] code = UBACT) 2+ None Seen,Trace A [facility]-[place]kinCT ANGIO HEAD W/WO [id number] 16:28:5720 g Cathlon Above the Antecubital or higher requiredProcedure: CT ANGIO HEAD W/WO CONTRASTOrder Date: 05/12/2019 3:30 PMOrdering Provider: REHAN VANG SA NDERSClinical Indication: [id number]: HeadacheComparison: NoneTechnique: Using a helical scanner, sequential axial imaging of the brain wasobtained before and after the administration of the contrast medium. At anindependent workstation, 3-D reconstructions of the [place] of [place] wereobtained.This examwas performed according to [...] PMDictated By: FARZAD DEWITTDate: 05/12/2019 16:22[facility] OF DOWNEYCT ABDOMEN/PELVIS W/[id number] 14:36:05NPO 4 hours. Do not withhold medsProcedure: [...] 04/09/20192:29 PMDictated By: GLORY BENITEZKDate: 04/09/2019 14:29[facility]NI[facility] WITH AUTO [id number] 09:02:00 Test Item Value Reference Range Interpretation [...] code = 0.5 % 0.0-0.4 H IG%) [facility]alkinK[facility] WITH AUTO [id number] 09:14:00 Test Item Value Reference Range Interpretation [...] (test code = 0.4 % 0.0-0.4 IG%) [facility]-[id number] 09:12:00 Test Item Value Reference Range Interpretation [...] 0.5-1.3 code = CREA) EGFR if >60 Mauritian (test code mL/min/1.73m\\ = EGFRAA) S\\2 EGFR if Non- >60 Estimate d Glomerular Mauritian (test code mL/min/1.73m\\ Filtrat ion Rate (eGFR) [...] and management of c hronic kidney failure. [facility]-LufkinSP PERC PLMNT MIDLINE NO PORT > [...] MD 04/07/20194:05 PMDictated By: WILEY VELÁZQUEZDate: 04/07/2019 16:05[facility]/PELVIS W/[id number] 22:50:40PROCEDURE INFORMATION:Exam: CT Abdomen and pelvis with [...] PM CDT.Dictated By: ELMER PHAMDate: 04/04/2019 22:50[id number] 21:22:00 Test Item Value Reference Range Interpretation Comments Lipase (test code = LIPA) 89 U/L 73-393 [facility] HospitalkinHEPATIC FUNCTION PANEL (LIVER)2019-04-04 21:22:00 Test Item Value [...] (test code = 0.3 mg/dl 0.0-1.1 IBIL) [facility] LAB CHEM [id number] 21:07:00 Test Item Value Reference Range Interpretation [...] (test code = CREA) 0.6 mg/dl 0.6-1.3 [facility] URINALYSIS WITHOUT [id number] 21:05:00 Test Item Value Reference Range Interpretation Comments Color (test code = UCOLR) Yellow Lt. Yellow A Clarity (test code = UCLAR) Slightly Cloudy Glucose (test code = UGLUC) 100 Negative A Bilirubin (test code = UBILI) Negative Negative N Ketones (test code = UKET) Negative Negative N Specific [place] (test code = >=1.030 1.005-1.030 A USPGR) Blood (test code = UBLD) Negative Negative N PH (test code = UPH) 5.5 4.5-8.0 A Protein (test code = UPROT) Negative Negative N Urobilinogen (test code = U 0.2 >0.2 N UROB) Nitrite (test code = UNITR) Negative Negative N Leukocyte Esterase (test code Negative Negative N = ULEUK) [facility] CBC WITH AUTO [id number] 21:04:00 Test Item Value Reference Range Interpretation [...] % 0.0-0.4 H [facility]fkinSTAT [facility] , [id number] 21:04:00 Test Item Value Reference Range Interpretation Comments (Urine) (test code = Negative PREGU) ONLY AVAILABLE 8A-12[facility][note 3]-LufkinED2 [id number] 16:05:00 Test Item Value Reference Range Interpretation Comments Sodium (test code = CANCELED mmol/l The r eleased value NA) 141 was cancele d by [id number] on 04/04/2019 16:0 5 Potassium (test code CANCELED mmol/l The released value = K) 3.9 was cancele d by [id number] on 04/04/2019 16:0 5 CO2 (test code = CANCELED mmol/l The rele ased value CO2) 23 was canceled by [id number] on 04/04/2019 16:0 5 Chloride (test code CANCELED mmol/l The r eleased value = CL) 108 was cancele d by [id number] on 04/04/2019 16:0 5 Glucose (test code = CANCELED mg/dl The r eleased value GLU) 96 was canceled by [id number] on 04/04/2019 16:0 5 Calcium (test code = CANCELED mg/dl The r eleased value CALC) 8.8 was cancele d by [id number] on 04/04/2019 16:0 5 BUN (test code = CANCELED mg/dl The relea sed value BUN) 11 was canceled by [id number] on 04/04/2019 16:0 5 Creatinine (test CANCELED mg/dl code = CREA) [facility] CenterTOLOGY [id number] 11:08:00 [address], [place] [address]Kyevt: [phone] HWHD #: [id number] MedicalDirector: Seth Valdez M.D.Surgical Pathology Consultation ReportPatient Name: LAUREN BETH Case #: [id number] Med. Rec. #:[id number] [id number] Date: 03/21/2019 : 1985(Age:33) Received: 03/23/2019 Gender: F Copy to : Reported:03/23/2019 Physician(s): Lizbeht Wolfe Specimen(s) ReceivedA: Right ovary Final Pathologic DiagnosisRight ovary and fallopian tube, right salpingo-oophorectomy:- fibrovascular adhesions of ovary and fallopian tube. - numerous follicular cysts, benign serous cysts, and corpusalbicanswithin ovarian parenchyma. Electronically Signed Out /03/23/2019 Steh Valdez MD, Board Certified in Anatomic Pathology [...] greatest dimension. The cystsarefilled with clearserous fluid. Hydraulic Blocker sections of the ovaryandpossible fallopian tube are submitted in cassettes A1-A8. /03/23/2019 Seth Valdez MD, Board Certified in Anatomic Pathology Microscopic DescriptionMicroscopic examination of the right ovary reveals fibrovascularadhesionsalong the surface of the ovary as well as along the accompanyingfallopiantube. The ovarian parenchyma contains follicular cysts, benign serouscyst,as well as numerous corpus albicans. No areas of endometriosis areseen. Billing Fee Code(s): A; 86888[facility]ukhh[facility] TRAN[facility]AL W/[id number] 16:45:00 Patient Name: ADELIA BETH Unit No: [id number] EXAMS: CPT CODE: [id number] US TRANSVAGINAL W/PELVIS 19613 CLINICAL HISTORY: Right lower quadrant pain. Status [...] is identified in the right ovary. at 1640 Reported and signed by: Mario Guidry MD CC: Hilaria Calderón MD Technologist: Dipesh Miranda RDMS, RVT Probe: [id number] Trnscrbd D/ (6599) tLAURENR.YOS Orig Print D/T: S: 03/10/2019 (164) [facility] NAME: ADELIA BETH Radiology Department PHYS: SUE. - Conchis Calderónondra [address] : 1985 AGE: 33 SEX: F [place], [place] [address] LOC: DayanaraERS PHONE #: [phone] EXAM DATE: 03/10/2019 STATUS: REG ER FAX #: [phone] RAD NO: Page 1 Signed Report Patient Name: ADELIA BETH Unit No: [id number] EXAMS: CPT CODE: [id number] US TRANSVAGINAL W/PELVIS 60842 <Continued> [facility] NAME: ADELIA BETH Radiology Department PHYS: SUE.Faustino - Conchis Munozondra [address] : 1985 AGE: 33 SEX: F [place] [address] LOC: ALONDRA PHONE #: [phone] EXAM DATE: 03/10/2019 STATUS: REG ER FAX #: [phone] RAD NO: Page2 Signed Report- US TRANSVAGINAL W/[id number] 16:45:00 Patient Name: LAUREN BETH Unit No: [id number] EXAMS: CPT CODE: [id number] US TRANSVAGINAL W/PELVIS 58184 CLINICAL HISTORY: Right lower quadrant pain. Status post appendectomy. History of ovarian cyst. Real-time ultrasound examination of the pelvis was performed using transabdominal and endovaginal approach. Uterus and left ovary have been surgically removed. Right ovary is enlarged and measures8.4 x 5.4 x 7.2 cm. It contains a hemorrhagic cyst measuring 4.6 x 3.7 x 3.9 cm and a simple cyst jimmy suring 5.1 x 4.6 x 4.4 cm. Additional smaller cyst is also present in the right ovary. Blood flow isidentified in the wall of the cyst. There [...] MD Technologist: Dipesh Miranda RDMS, RVT Probe: [id number] Trnscrbd D/ (0105) t.MICAELAR.YOS Orig Print D/T: S: 03/10/2019 (6358) [facility] NAME: LAUREN BETH Radiology Department PHYS: GUTAL. - Hilaria Calder[facility] [address] 1985 AGE: 33 SEX: F [place] [address] LOC: DayanaraERS PHONE #:[phone] EXAM DATE: 03/10/2019 STATUS: DEP ER FAX #: [phone] RAD NO: [id number] Page 1 Signed Re port Patient Name: LAUREN BETH Unit No: [id number] EXAMS: CPT CODE: [id number] US TRANSVAGINAL W/PELVIS 04751 (Continued) [facility] NAME: LAUREN BETH Radiology Department PHYS: GUTCONCHIS. - Hilaria Calderón [address] : 1985 AGE: 33 SEX: F [place] [address] LOC: DayanaraERS PHONE #: [phone] EXAM DATE: 03/10/2019 STATUS: DEP ER FAX #: [phone] RAD NO: [id number] Page 2 Signed Report- US PELVIS [id number] 16:45:00 Patient Name: ADELIA BETH Unit No: [id number] EXAMS: CPT CODE: [id number] US PELVIS COMPLETE 86447 CLINICAL HISTORY: Right lower quadrant pain. Status [...] is identified in the right ovary. at 5477 Reported and signed by: Mario Guidry MD CC: Hilaria Calderón MD Technologist: Dipesh Miranda RDMS, RVT Probe: Trnscrbd D/ (2962) t.SDR.YOS Orig Print D/T: S: 03/10/2019 (3002) [facility] NAME: ADELIA BETH Radiology Department PHYS: Hilaria Maldonado [address] : 1985 AGE: 33 SEX: F [place] [address] LOC: ALONDRA PHONE #: [phone] EXAM DATE: 03/10/2019 STATUS: REG ER FAX #: [phone] RAD NO: Page 1 Signed Report Patient Name: ADELIA BETH Unit No: [id number] EXAMS: CPT CODE: [id number] US PELVIS COMPLETE 00561 <Continued> [facility] NAME: ADELIA BETH Radiology Department PHYS: Hilaria Maldonado [address] : 1985 AGE: 33 SEX: F [place] [address] LOC: DayanaraERS PHONE #: [phone] EXAM DATE: 03/10/2019 STATUS: REG ER FAX #: [phone] RAD NO: Page 2 Signed Report- US PELVIS [id number] 16:45:00 Patient Name: LAUREN BETH Unit No: [id number] EXAMS: CPT CODE: [id number] US PELVIS COMPLETE 50384 CLINICAL HISTORY: Right lower quadrant pain. Status [...] Dipesh Miranda RDMS, T Probe: Trnscrbd D/ (1645) [email or web address] Orig Print D/T: S: 03/10/2019 (1648) [facility] NAME: LAUREN BETH Radiology Department PHYS: Hilaria Maldonado [address] : 1985 AGE: 33 SEX: F [place], [place] [address] LOC: DayanaraERS PHONE #: [phone] EXAM DATE: 03/10/2019 STATUS: [facility] FAX #: [phone] RAD NO: [id number] Page 1 Signed Report Patient Name: LAUREN BETH Unit No: [id number] EXAMS: CPT CODE: [id number] US PELVIS COMPLETE 68602 (Continued) [facility] NAME: LAUREN BETH Radiology Department PHYS: Hilaria Maldonado [address] : 1985 AGE: 33 SEX: F [place] LOC: ALONDRA PHONE #: [phone] EXAM DATE: 03/10/2019 STATUS: DEP ER FAX #: [phone] RAD NO: [id number] Page 2 Signed ReportCBC W/AUTO DIFF 2019-03-10 [...] = PLTMR) UA RFLX MICR CULT IF [id number] 16:07:00 Test Item Value Reference Range Interpretation [...] A Indication for culture: Suprapubic PainUR HCG [id number] 16:07:00 Test Item Value Reference Range Interpretation [...] culture: Suprapubic PainUA RFLX MICR CULT IF [id number] 16:04:00 Test Item Value Reference Range Interpretation [...] EPIU) Indication for culture: Suprapubic PainUR HCG [id number] 16:04:00 Test Item Value Reference Range Interpretation [...] culture: Suprapubic PainUA RFLX MICR CULT IF [id number] 15:55:00 Test Item Value Reference Range Interpretation [...] RARE-FEW Indication for culture: Suprapubic PainUR HCG [id number] 15:55:00 Test Item Value Reference Range Interpretation [...] and tested. Indication for culture: Suprapubic PainED2 [id number] 01:18:00 Test Item Value Reference Range Interpretation [...] code = MPV) 6.9 fL 8.0-11.0 A [facility] URINE [id number] 00:55:00 Test Item Value Reference Range Interpretation Comments Color (test code = UCOLR) Yellow Lt. Yellow A Clarity (test code = UCLAR) Clear Glucose (test code = UGLUC) NEGATIVE NEGATIVE N Bilirubin (test code = UBILI) NEGATIVE NEGATIVE N Ketones (test code = UKET) NEGATIVE NEGATIVE N Specific [place] (test code = USPGR) 1.030 1.005-1.030 A Blood (test code = UBLD) NEGATIVE NEGATIVE N PH (test code = UPH) 6.0 4.5-8.0 A Protein (test code = UPROT) Trace NEGATIVE A Urobilinogen (test code = U UROB) 0.2 >0.2 N Nitrite (test code = UNITR) NEGATIVE NEGATIVE N Leukocyte Esterase (test code = NEGATIVE NEGATIVE N ULEUK) [facility] , [id number] 00:54:00 Test Item Value Reference Range Interpretation Comments (Urine) (test code = Negative PREGU) [facility] HospitalTadlcd-[id number] 13:07:00 Test Item Value Reference Range Interpretation Comments Lipase (test code = LIPA) 106 U/L 73-393 [facility] ABDOMEN/PELVIS W/[id number] 12:24:12Procedures: ED2 CT ABDOMEN/PELVIS W/CONTRASTExam Date: 02/07/2019 10:11 AMOrdering Physician: WYATT Downsinical Indication: [id number]: Epigastric painComparison: CT abdomen/pelvis, 01/27/19TECHNIQUE: Spiral multislice [...] PMDictated By: ELMER PHAMDate: 02/07/2019 12:17[facility] [address]2019-08-10 10:48:00 Test Item Value Reference Range [...] (test code = TP) 7.6 gm/dl 6.4-8.1 [facility] URINE [id number] 10:45:00 Test Item Value Reference Range Interpretation Comments Color (test code = UCOLR) Yellow Lt. Yellow A Clarity (test code = UCLAR) Sl Cloudy Glucose (test code = UGLUC) NEGATIVE NEGATIVE N Bilirubin (test code = UBILI) NEGATIVE NEGATIVE N Ketones (test code = UKET) NEGATIVE NEGATIVE N Specific [place] (test code = 1.025 1.005-1.030 A USPGR) Blood (test code = UBLD) NEGATIVE NEGATIVE N PH (test code = UPH) 5.5 4.5-8.0 A Protein (test code = UPROT) NEGATIVE NEGATIVE N Urobilinogen (test code = U UROB) 0.2 >0.2 N Nitrite (test code = UNITR) NEGATIVE NEGATIVE N Leukocyte Esterase (test code = NEGATIVE NEGATIVE N ULEUK) [facility]ED[facility] , [id number] 10:45:00 Test Item Value Reference Range Interpretation Comments (Urine) (test code = Negative PREGU) [facility] [id number] 10:44:00 Test Item Value Reference Range Interpretation [...] code = MPV) 6.8 fL 8.0-11.0 A [facility]kinCT ABDOMEN/PELVIS W/[id number] 12:29:19s/p hysterectomy; rlq painProcedure: CT ABDOMEN/PELVIS W/CONTRASTOrder Date: 01/27/2019 10:57 AMOrdering Provider: DR LEXUS CASTREJON ACOSTAClinical Indication: [id number]: Abdominal painComparison: September 30, 2018TECHNIQUE:The abdo men [...] MD 01/27/201912:23 PMDictated By: GLORY BENITEZKDate: 01/27/2019 12:23[facility]ALL[facility]INALYSIS WITH [id number] 12:10:00 Test Item Value Reference Range Interpretation Comments Color (test code = UCOLR) YELLOW Clarity (test code = UCLAR) CLEAR Glucose (test code = UGLUC) NEGATIVE NEGATIVE N Bilirubin (test code = UBILI) NEGATIVE NEGATIVE N Ketones (test code = UKET) NEGATIVE NEGATIVE N Specific [place] (test code = USPGR) <=1.005 1.005-1.030 A [...] code = UBACT) Trace None Seen,Trace N [facility] HospitalNxvwjk-[id number] 11:49:00 Test Item Value Reference Range Interpretation Comments Lipase (test code = LIPA) 91 U/L 73-393 [facility]-[place]uburnAMYLASE, [id number] 11:49:00 Test Item Value Reference Range Interpretation Comments Amylase (test code = AMYL) 45 U/L 25-115 [facility] LAB CHEM [id number] 11:25:00 Test Item Value Reference Range Interpretation [...] code = CREA) 0.5 mg/dl 0.6-1.3 L [facility] LAB CBC WITH AUTO [id number] 11:23:00 Test Item Value Reference Range Interpretation [...] = IG%) 0.6 % 0.0-0.[address] [facility] PELVIS [id number] 07:55:25h/o complex right ovarian cystsProcedure: Pelvic ultrasound.CLINICAL [...] 12/07/20187:49 AMDictated By:WILEY VELÁZQUEZDate: 12/07/2018 07:49[facility] OF [id number] 03:11:00 Test Item Value Reference Range Interpretation Comments Lipase (test code = LIPA) 136 U/L 73-393 [facility] PANEL (LIVER)2018-12-07 03:10:00 Test Item Value [...] (test code = 0.1 mg/dl 0.0-1.1 IBIL) [facility] LAB CHEM [id number] 02:41:00 Test Item Value Reference Range Interpretation [...] code = CREA) 0.5 mg/dl 0.6-1.3 L [facility] CBC WITH AUTO [id number] 02:39:00 Test Item Value Reference Range Interpretation [...] code = IG%) 0.5 % 0.0-0.4 H [facility]kinURINALYSIS WITH [id number] 02:37:00 Test Item Value Reference Range Interpretation Comments Color (test code = UCOLR) YELLOW Clarity (test code = UCLAR) CLEAR Glucose (test code = UGLUC) 500 NEGATIVE A Bilirubin (test code = UBILI) NEGATIVE NEGATIVE N Ketones (test code = UKET) TRACE NEGATIVE A Specific [place] (test code = USPGR) >=1.030 1.005-1.030 A [...] code = UBACT) 2+ None Seen,Trace A [facility]-LufkinCULTURE, [id number] 07:39:00CULTURE RIGHT ABDOMEN WOUND CARE DEPTSpecimen: AbdomenCollected: [...] Sc (+/-) Negative - ICR (+/-) Negative -[facility]-LufkinXR CHEST AP/PA 1 [id number] 05:15:17Procedure: XR CHEST AP/PA 1 VIEWOrder Date: 09/30/2018 8:28 PMOrdering Provider: DIMAS Haskinsinical Indication: [id number]: Acute chest painComparison: May 13, 2017Findings:Cardiac size is magnified by technique.Pulmonary vasculature is normal.Mediastinal contour is normal.Aortic contour is normal.There is no consolidation or effusion.There is no evidence of active tuberculosis.There is no mass or pneumothorax.There is no skeletal abnormality.Impression: Negative AP portable chest x-ray.This final report was electronically signed by Dr Farzad Dewitt MD 10/01/20185:08 AMDictated By: FARZAD DEWITTDate: 10/01/2018 05:08 [facility]CT ABDOMEN/PELVIS W/O [id number] 00:42:26NPO 4 hours. Do not withhold medsEXAM:CT [...] CDT.Dictated By: REHAN AZARDate: 10/01/2018 00:42MM OF [id number] 21:37:00 Test Item Value Reference Range Interpretation Comments Lipase (test code = LIPA) 82 U/L 73-393 [facility]-LukinHEPATIC FUNCTION PANEL (LIVER)2018-09-30 21:37:00 Test Item Value [...] (test code = 0.5 mg/dl 0.0-1.1 IBIL) [facility] CHEM [id number] 21:10:00 Test Item Value Reference Range Interpretation [...] code = CREA) 0.5 mg/dl 0.6-1.3 L [facility] CBC WITH AUTO [id number] 21:09:00 Test Item Value Reference Range Interpretation [...] (test code = IG%) 0.3 % 0.0-0.4 [facility] W/WO TUBE,DBF-[id number] 12:44:00 RUN DATE: 09/04/18 [facility] PAGE 1 RUN TIME: 1454 Specimen Inquiry RUN USER: INTERFACE -[facility] [id number] [facility] [place] U #: [id number] AGE/SX: 33/F ROOM: [facility] RE09/02/18REG DR:Elmer Flores : 87 BED: A DIS: 09/03/18 STATUS: DIS [place] TLOC: SPEC #: [id number] RECD: 09/02/18 STATUS: KWAME GARCIA #: [id number] MELISSA: 09/02/18- [facility] DR: Elmer Flores III ENTERED: 09/03/18 SP TYPE: MUSA PELAYO DR: ORDERED: LEVEL IV CODES: [id number] - OVARY, NOS PROCEDURES: LEVEL IV (Incomplete) TISSUES: OVARY, NOS - RIGHT OVARIAN CYST CLINICAL HISTORY 33 year old, acute pelvic pain (wpd) FINAL DIAGNOSIS Right ovarian cyst, excision: - benign simple cyst of ovary Tissue code 1 CPT code(s): 24905 [facility] 09/04/18 GROSS DESCRIPTION ANATOMIC SOURCE [...] with multiple yellow-orange, centrally hemorrhagic corpora lutea. 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 telma/wpchin 09/03/18 @ 1343 Signed Amaris Wharton MD 09/04/18 1244 END OF REPORT CBC W/AUTO [id number] 03:10:00 Test Item Value Reference Range Interpretation [...] NORMAL NORMAL code = PLTMR) CHEMISTRY 7 [id number] 14:15:00 Test Item Value Reference Range Interpretation [...] CA) 9.2 mg/dL 8.4-10.2 N CBC W/AUTO [id number] 13:42:00 Test Item Value Reference Range Interpretation [...] NORMAL NORMAL code = PLTMR) US INTRAVAGINAL [id number] 12:35:09Procedure: Pelvic ultrasound.CLINICAL INDICATION: Pelvic pain. Status [...] PMDictated By: WILEY VELÁZQUEZDate: 09/01/2018 12:28[facility] CBC WITH AUTO [id number] 11:31:00 Test Item Value Reference Range Interpretation [...] RS88 71 on 09/01/2018 11:31 ONLY AVAILABLE [address] [place] [address]-LukinCT ABDOMEN/PELVIS W/O [id number] 11:11:01MLP CProcedure: CT ABDOMEN/PELVIS W/O CONTRASTOrder Date: 09/01/2018 9:28 AMOrdering Provider: CHIN LORENZANAClinical Indication: [id number]: Abdominal pain. Left lower quadrant painComparison: 12/24/2017TECHNIQUE:CT [...] 09/01/201811:04 AMDictatedBy: GLORY BENITEZKDate: 09/01/2018 11:04[facility] CHEM [id number] 10:26:00 Test Item Value Reference Range Interpretation [...] CREA) 0.4 mg/dl 0.6-1.3 L ONLY AVAILABLE -[address] [place] [address] LAB URINALYSIS WITHOUT [id number] 09:59:00 Test Item Value Reference Range Interpretation Comments Color (test code = UCOLR) Yellow Lt. Yellow A Clarity (test code = UCLAR) Clear Glucose (test code = UGLUC) NEGATIVE Negative A Bilirubin (test code = UBILI) NEGATIVE Negative A Ketones (test code = UKET) NEGATIVE Negative A Specific [place] (test code = USPGR) 1.015 1.005-1.030 A Blood (test code = UBLD) NEGATIVE Negative A PH (test code = UPH) 7.0 4.5-8.0 A Protein (test code = UPROT) NEGATIVE Negative A Urobilinogen (test code = U UROB) 0.2 >0.2 N Nitrite (test code = UNITR) NEGATIVE Negative A Leukocyte Esterase (test code = NEGATIVE Negative A ULEUK) ONLY AVAILABLE [address] [place] [address]-[facility] INTRAVAGINAL PELVIS 2018-05-13 13:26:23Procedure: Pelvic [...] PMDictated By: WILEY VELÁZQUEZDate: 05/13/2018 13:20[facility] CBC WITH AUTO [id number] 12:22:00 Test Item Value Reference Range Interpretation [...] (test code = 0.2 % 0.0-0.4 IG%) [facility] CBC WITH AUTO [id number] 11:54:00 Test Item Value Reference Range Interpretation [...] 0.5 % 0.0-0.4 H IG%) ONLY AVAILABLE -[address] [place] [address] LAB URINALYSIS WITHOUT [id number] 11:25:00 Test Item Value Reference Range Interpretation Comments Color (test code = UCOLR) Yellow Lt. Yellow A Clarity (test code = UCLAR) Clear Glucose (test code = UGLUC) NEGATIVE Negative A Bilirubin (test code = UBILI) NEGATIVE Negative A Ketones (test code = UKET) NEGATIVE Negative A Specific [place] (test code = USPGR) 1.020 1.005-1.030 A Blood (test code = UBLD) NEGATIVE Negative A PH (test code = UPH) 7.0 4.5-8.0 A Protein (test code = UPROT) NEGATIVE Negative A Urobilinogen (test code = U UROB) 0.2 >0.2 N Nitrite (test code = UNITR) NEGATIVE Negative A Leukocyte Esterase (test code = NEGATIVE Negative A ULEUK) ONLY AVAILABLE [address] [place] [address] LAB , URINE 2018-05-13 11:25:00 Test Item Value Reference Range Interpretation Comments (Urine) (test code = Negative PREGU) ONLY AVAILABLE [address] [place] [address] LAB CHEM [id number] 11:23:00 Test Item Value Reference Range Interpretation [...] CREA) 0.5 mg/dl 0.6-1.3 L ONLY AVAILABLE [address] [place] [address]-LufkinUS INTRAVAGINAL PELVIS 2017-12-24 12:50:53Procedure: Pelvic ultrasound.CLINICAL INDICATION: [...] PMDictated By: WILEY VELÁZQUEZDate: 12/24/2017 12:50[facility] OF DOWNEYURINALYSIS WITH [id number] 10:22:00 Test Item Value Reference Range Interpretation Comments Color (test code = UCOLR) Yellow Clarity (test code = UCLAR) Clear Glucose (test code = UGLUC) NEGATIVE NEGATIVE N Bilirubin (test code = UBILI) NEGATIVE NEGATIVE N Ketones (test code = UKET) NEGATIVE NEGATIVE N Specific [place] (test code = USPGR) 1.025 1.005-1.030 A [...] code = UBACT) Trace None Seen,Trace N [facility] HospitalkinLIPASE, [id number] 10:05:00 Test Item Value Reference Range Interpretation Comments Lipase (test code = LIPA) 40 U/L 8-223 [facility]-[id number] 10:05:00 Test Item Value Reference Range Interpretation [...] ( 4 - SerumAlbumin)] EGFR if >60 [place] (test code mL/min/1.73m\\ = EGFRAA) S\\2 EGFR if Non- >60 Estimate d Glomerular [place] (test code mL/min/1.73m\\ Filtrat ion Rate (eGFR) [...] and management of c hronic kidney failure. [facility]-[place]kinCT ABD/ PELVIS W/O CON (RENAL STONE)2017-12-24 [...] MD 12/24/20179:32 AMDictated By: WILEY VELÁZQUEZDate: 12/24/2017 09:38[facility] WITH AUTO DIFF 2017-12-24 09:26:00 Test [...] = 0.6 % 0.0-0.4 H IG%) AUTO [facility] [place][note 2]-[place]kinCT ABD/ PELVIS W/O CON (RENAL STONE) 2017-06-21 [...] CDT.Dictated By: MARVIN DOBBSDate: 06/21/2017 03:20[facility] OF DOWNEYURINALYSIS WITH [id number] 03:20:00 Test Item Value Reference Range Interpretation Comments Color (test code = UCOLR) YELLOW Clarity (test code = UCLAR) CLEAR Glucose (test code = UGLUC) NEGATIVE NEGATIVE N Bilirubin (test code = UBILI) NEGATIVE NEGATIVE N Ketones (test code = UKET) NEGATIVE NEGATIVE N Specific [place] (test code = 1.020 1.005-1.030 A USPGR) [...] UBACT) None Seen None Seen,Trace N er [address] [place] [address]-[id number] 03:07:00 Test Item Value Reference Range Interpretation [...] ( 4 - SerumAlbumin)] EGFR if >60 [place] (test code mL/min/1.73m\\ = EGFRAA) S\\2 EGFR if Non- >60 Estimate d Glomerular [place] (test code mL/min/1.73m\\ Filtrat ion Rate (eGFR) [...] management of c hronic kidney failure. er [address] [place] [address]-[facility] HospitalkinLIPASE, [id number] 03:07:00 Test Item Value Reference Range Interpretation Comments Lipase (test code = LIPA) 61 U/L 8-[address] [place] [address]-fkinCBC WITH AUTO [id number] 03:05:00 Test Item Value Reference Range Interpretation [...] code = 0.4 % 0.0-0.4 IG%) er [address] [place] [address]-LufkinXR CHEST 2 PA [id number] 19:56:04 Procedure: XR CHEST 2 PA LATERALExam date: 05/13/2017 3:53 PMOrdering Provider: DR ASA BLOOMClinical Indication: fatigue, Chest painComparison: March 15, 2016Findings:Cardiomediastinal silhouette is within normal limits.The lungs are clear.No pleural effusion or pneumothorax. Osseous structures are nonacute.No evidence of active tuberculosis.Impression:No acute cardiopulmonary process.This final report was electronically signed by Dr Wiley Velázquez MD 05/13/20177:49 PMDictated By: WILEY VELÁZQUEZDate: 05/13/2017 19:55[facility] OF [id number] 16:53:00 Test Item Value Reference Range Interpretation [...] ( 4 - SerumAlbumin)] EGFR if >60 [place] (test code mL/min/1.73m\\ = EGFRAA) S\\2 EGFR if Non- >60 Estimate d Glomerular [place] (test code mL/min/1.73m\\ Filtrat ion Rate (eGFR) [...] and management of c hronic kidney failure. [facility]alkin[facility] ONLY)2017-05-13 16:32:00 Test Item Value [...] WILL BE NOTED ON THE RE PORT. [facility]-LufkinURINALYSIS WITH [id number] 18:25:00 Test Item Value Reference Range Interpretation Comments Color (test code = UCOLR) YELLOW Clarity (test code = UCLAR) CLEAR Glucose (test code = UGLUC) NEGATIVE NEGATIVE N Bilirubin (test code = UBILI) NEGATIVE NEGATIVE N Ketones (test code = UKET) NEGATIVE NEGATIVE N Specific [place] (test code = 1.025 1.005-1.030 A USPGR) [...] UR MISC) None Seen None Seen N [facility]-[place]uburnHEPATIC FUNCTION PANEL (LIVER)2016-10-09 18:21:00 Test Item Value [...] (test code = 0.1 mg/dl 0.0-1.1 IBIL) [facility]-[id number] 18:21:00 Test Item Value Reference Range Interpretation [...] mg/dl 8.4-10.2 = CALC) EGFR if >60 Maur[place] (test code mL/min/1.73m\\ = EGFRAA) S\\2 EGFR if Non- >60 Estimate d Glomerular Mauritian (test code mL/min/1.73m\\ Filtrat ion Rate (eGFR) [...] and management of c hronic kidney failure. [facility]-LufkinCBC WITH AUTO [id number] 18:04:00 Test Item Value Reference Range Interpretation [...] Auto (test code = 0 NRBC_AUTO) AUTO [facility]
[2022-08-27] MEDS ORDERED: METOCLOPRAMIDE 10 MG/2mL INJ ONE (00:01)
[2022-08-27] MEDS ORDERED: NA CHLORIDE 0.9% 1,000 ML ONE (00:02)
[2022-08-27] MEDS ORDERED: FENTANYL CITR 100 MCG/2 ML ONE ×2 (00:02→01:14)
[2022-08-27] MEDS ORDERED: FAMOTIDINE 20 MG/2 ML VIAL IV ONE (00:02)
[2022-08-27] MEDS ORDERED: NA CHLORIDE 0.9% 50 ML ONE (00:02)
[2022-08-27] MEDS ORDERED: PROMETHAZINE INJ 25 MG/ML AMP ONE (00:41)
[2022-08-27 00:52] LABS: Urine Blood Negative (Negative); Urine Glucose Negative (Negative); Urine Protein Negative (Negative); Urine Specific Gravity >=1.030 (1.005-1.030)
[2022-08-27 01:02] LABS: Absolute Lymphocytes (CBC) 2.5 K/uL (0.7-4.9); Hematocrit 34.6 % (36.0-45.0); Lymphocytes % 32.9 % (15.3-44.8); MCV 88.6 fL (80-100); RBC Red Blood Cell Count 3.91 M/uL (3.86-4.86)
[2022-08-27 01:11] LABS: Albumin 3.1 g/dL (3.4-5.0); Bilirubin Total 0.2 mg/dL (0.2-1.0); Potassium 3.4 mmol/L (3.5-5.1); Protein, Total 6.4 g/dL (6.4-8.2)
[2022-08-27 01:18] LABS: Urine Bacteria <20 /HPF (<20); Urine Mucus 2+ /HPF (None Seen); Urine RBC <5 /HPF (None Seen)
[2022-08-27 01:20] LABS: Urine Specific Gravity/Preg >1.030 (1.005-1.030)
--- NOTE | 2022-08-27 01:26 | EDPHYS ---
Physician Documentation [facility] Name: Hong Pace Age: 37 yrs Sex: Female : 1985 Arrival Date: 08/26/2022 Time: 22:58 Bed 19 Private MD: ED Physician Soledad Almodovar HPI: 08/26 23:40 This 37 yrs old Female presents to ER via Ambulatory with complaints of Abdominal Pain. cp 23:40 The patient presents with abdominal pain. cp 23:40 Onset: The symptoms/episode began/occurred this evening. The symptoms do not radiate. cp Associated signs and symptoms: Pertinent positives: nausea, Pertinent negatives: chest pain, constipation, diarrhea, fever, vomiting. The symptoms are described as constant. Severity of pain: in the emergency department the pain is unchanged despite home interventions. The patient has experienced similar episodes in the past, chronically. 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 - Social history:: Smoking status: Patient reports the use of cigarette tobacco products, denies chronic smoking, but will smoke occasionally. ROS: 23:50 Constitutional: Negative for body aches, chills, fever. cp 23:50 Eyes: Negative for injury, pain, redness, and discharge. cp 23:50 ENT: Negative for drainage from ear(s), ear pain, sore throat, difficulty swallowing, difficulty handling secretions. 23:50 Cardiovascular: Negative for chest pain, edema, palpitations. 23:50 Respiratory: Negative for cough, shortness of breath, wheezing. 23:50 Abdomen/GI: Positive for abdominal pain, nausea, Negative for diarrhea, constipation, active vomiting. 23:50 Back: Negative for pain at rest, pain with movement. 23:50 Neuro: Negative for altered mental status, dizziness, headache, weakness. 23:50 All other systems are negative. Exam: 23:55 Constitutional: The patient appears in no acute distress, alert, awake, cp non-diaphoretic, non-toxic, well developed, well nourished, obese, uncomfortable. 23:55 Head/Face: Normocephalic, atraumatic. cp Vital Signs: 22:59 BP 113 / 83; Pulse 83; Resp 16; Temp 98.9(O); Pulse Ox 99% on R/A; Weight 104.33 kg ll3 (R); Height 5 ft. 4 in. (162.56 cm) (R); Pain 10; 08/27 01:00 BP 102 / 68; Pulse 78; Resp 16; Pulse Ox 100% on R/A; ll3 08/26 22:59 Body Mass Index 39.48 (104.33 kg, 162.56 cm) ll3 MDM: 08/26 23:05 Patient medically screened. cp 08/27 00:47 ED course: review of [place] prescription medication website shows patient received #56 cp hydrocodone 5/325 on 08-14-2022. 01:00 Differential diagnosis: bowel obstruction, non-specific abd pain, Ureterolithiasis, cp urinary tract infection, chronic pain. 01:25 Data reviewed: vital signs, nurses notes, lab test result(s). cp 01:25 Consideration of Admission/Observation Escalation of care including cp admission/observation considered. Test considered but Not performed: CT: abdomen/pelvis. Care significantly affected by the following chronic conditions: endometriosis. 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 Response to treatment: nausea and pain improved, and as a result, I will discharge patient. Special discussion: Based on the patient's Hx, exam, and Dx evaluation, there is no indication for emergent surgery or inpatient Tx. It is understood by the patient/guardian that if the Sx's persist or worsen they need to return immediately for re-evaluation. 08/26 23:42 Order name: CBC with Diff cp 08/26 23:42 Order name: CMP cp 08/26 23:42 Order name: Lipase cp 08/26 23:42 Order name: Urine Microscopic Only cp 08/27 00:53 Order name: Urine Dipstick-Ancillary; Complete Time: 01:24 EDMS 08/27 00:56 Order name: Urine --Ancillary (enter results) rv1 08/27 01:09 Order name: CBC with Automated Diff EDMS 08/27 01:11 Order name: Comprehensive Metabolic Panel EDHI 08/27 01:11 Order name: Lipase EDMS 08/27 01:18 Order name: Urine Microscopic Only EDMS 08/27 01:20 Order name: Urine --Ancillary EDMS 08/26 23:42 Order name: IV Saline Lock; Complete Time: 00:44 cp 08/26 23:42 Order name: Labs collected and sent; Complete Time: 00:44 cp 08/26 23:42 Order name: Urine Dipstick-Ancillary (obtain specimen); Complete Time: 00:53 cp 08/26 23:42 Order name: Urine Test (obtain specimen); Complete Time: 00:53 cp Administered Medications: 00:24 Not Given (Physician Discretion): Reglan (metoCLOPramide) 10 mg IVP once; over 1 to 2 cp minutes 00:44 Drug: NS 0.9% 1000 ml Route: IV; Rate: 1 bolus; Site: right forearm; ke1 00:44 Drug: Pepcid (famotidine) 20 mg Route: IVP; Site: right forearm; ke1 01:00 Follow up: Response: No adverse reaction ke1 00:44 Drug: fentaNYL (PF) 25 mcg Route: IVP; Site: right forearm; ke1 01:00 Follow up: Response: Pain is unchanged, physician notified ke1 00:44 Drug: Phenergan (promethazine) 25 mg Route: IVP; Site: right forearm; ke1 01:00 Follow up: Response: Nausea is decreased ke1 01:12 Drug: fentaNYL (PF) 50 mcg Route: IVP; Site: right forearm; ll3 01:30 Follow up: Response: Pain is decreased ke1 01:31 Drug: Potassium Effervescent Tablet 50 mEq Route: PO; ke1 01:32 Follow up: Response: Medication administered at discharge. ke1 Disposition Summary: 02/27/23 01:26 Discharge Ordered Location: Home cp Problem: new cp Symptoms: have improved cp Condition: Stable cp Diagnosis - Abdominal pain, Generalized - chronic(08/27/22 01:27) cp Followup: cp - With: Private Physician - When: 1 - 2 days - Reason: Recheck today's complaints Discharge Instructions: - Discharge Summary Sheet cp - Abdominal Pain, Adult cp - Chronic Pain, Adult cp Forms: - Medication Reconciliation Form cp - Thank You Letter cp - Antibiotic Education cp - Prescription Opioid Use cp Prescriptions: - promethazine 25 mg Oral Tablet - take 1 tablet by ORAL route every 6 hours As needed; 20 tablet; Refills: 0, cp Product Selection Permitted Signatures: Dispatcher [employer] EDMS Cole Abbott PA PA cp Loubet, Lynsea RN RN ll3 Joni Ritchie RN RN ke1 Corrections: (The following items were deleted from the chart) 01: 01:26 Abdominal pain, Generalized cp cp 08/28 01:08 08/26 23:40 The patient has experienced similar episodes in the past, multiple times, cpcp
--- NOTE | 2022-08-27 01:26 | ER ---
Nurse's Notes [facility] Name: Hong Pace Age: 37 yrs Sex: Female : 1985 Arrival Date: 08/26/2022 Time: 22:58 Bed 19 Private MD: Diagnosis: Abdominal pain, Generalized-chronic Presentation: 08/26 22:59 Chief complaint: Patient states: C/o N/V, and abdominal pain 04/09 since 0. ll3 Coronavirus screen: Vaccine status: Patient reports being unvaccinated. muscle pain, nausea, vomiting. Ebola Screen: No symptoms or risks identified at this time. Initial Sepsis Screen: Does the patient meet any 2 criteria? No. Patient's initial sepsis screen is negative. Does the patient have a suspected source of infection? No. Patient's initial sepsis screen is negative. Risk Assessment: Do you want to hurt yourself or someone else? Patient reports no desire to harm self or others. Onset of symptoms was August 26, 2022 at 22:00. Care prior to arrival: Medication(s) given: Vicodin 500 MG at 2200. 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 - Social history:: Smoking status: Patient reports the use of cigarette tobacco products, denies chronic smoking, but will smoke occasionally. Screenin/27 01:13 [facility] ED Fall Risk Assessment (Adult) History of falling in the last 3 months, ll3 including since admission No falls in past 3 months (0 pts) Confusion or Disorientation No (0 pts) Intoxicated or Sedated No (0 pts) Impaired Gait No (0 pts) Mobility Assist Device Used No (0 pt) Altered Elimination No (0 pt) Score/Fall Risk Level 0 - 2 = Low Risk Oriented to surroundings, Maintained a safe environment, Educated pt \T\ family on fall prevention, incl call for assistance when getting out of bed. Abuse screen: Denies threats or abuse. Denies injuries from another. Nutritional screening: No deficits noted. Tuberculosis screening: No symptoms or risk factors identified. Assessment: 00:00 General: Appears uncomfortable, Behavior is calm, cooperative. Pain: Complains of pain ll3 in right upper quadrant and left upper quadrant Pain does not radiate. Pain currently is 10 out of 10 on a pain scale. GI: Bowel sounds present X 4 quads. Abd is soft X 4 quads Reports upper abdominal pain, nausea. Derm: Skin is pink, warm \T\ dry. Vital Signs: 08/26 22:59 BP 113 / 83; Pulse 83; Resp 16; Temp 98.9(O); Pulse Ox 99% on R/A; Weight 104.33 kg ll3 (R); Height 5 ft. 4 in. (162.56 cm) (R); Pain 10/10; 08/27 01:00 BP 102 / 68; Pulse 78; Resp 16; Pulse Ox 100% on R/A; ll3 08/26 22:59 Body Mass Index 39.48 (104.33 kg, 162.56 cm) ll3 ED Course: 08/26 22:58 Patient arrived in ED. ag3 23:01 Triage completed. ll3 23:01 Arm band placed on. ll3 23:05 Cole Abbott PA is PHCP. cp 23:05 Soledad Almodovar MD is Attending Physician. cp 23:39 Meg Mobley, [place] is Primary Nurse. eh3 08/27 00:11 Missed attempt(s): 20 gauge in right antecubital area. Bleeding controlled, band aid eh3 applied, catheter tip intact. 00:43 Inserted saline lock: 24 gauge in right forearm, using aseptic technique. ke1 00:44 CBC with Diff Sent. ke1 00:44 CMP Sent. ke1 00:44 Lipase Sent. ke1 01:13 Patient has correct armband on for positive identification. Bed in low position. Call ll3 light in reach. Side rails up X 1. 01:15 No provider procedures requiring assistance completed. ll3 01:34 IV discontinued. ke1 Administered Medications: 00:24 Not Given (Physician Discretion): Reglan (metoCLOPramide) 10 mg IVP once; over 1 to 2 cp minutes 00:44 Drug: NS 0.9% 1000 ml Route: IV; Rate: 1 bolus; Site: right forearm; ke1 00:44 Drug: Pepcid (famotidine) 20 mg Route: IVP; Site: right forearm; ke1 01:00 Follow up: Response: No adverse reaction ke1 00:44 Drug: fentaNYL (PF) 25 mcg Route: IVP; Site: right forearm; ke1 01:00 Follow up: Response: Pain is unchanged, physician notified ke1 00:44 Drug: Phenergan (promethazine) 25 mg Route: IVP; Site: right forearm; ke1 01:00 Follow up: Response: Nausea is decreased ke1 01:12 Drug: fentaNYL (PF) 50 mcg Route: IVP; Site: right forearm; ll3 01:30 Follow up: Response: Pain is decreased ke1 01:31 Drug: Potassium Effervescent Tablet 50 mEq Route: PO; ke1 01:32 Follow up: Response: Medication administered at discharge. ke1 Medication: 01:15 VIS not applicable for this client. ll3 Outcome: 01:26 Discharge ordered by . cp 01:34 Discharged to home ambulatory. ke1 01:34 Condition: good 01:34 Discharge instructions given to patient. 01:34 Patient left the ED. ke1 Signatures: Cole Abbott PA PA cp Gomez, Alice ag3 Cata Whitehead RN RN 3 Joni Ritchie RN RN ke1 Meg Mobley RN RN 3
[2022-08-27 02:11] VITALS: BP 102/68; O2SAT 100
[2022-08-27 02:13] VITALS: TEMP 98.9
== END 2022-08-27 01:34 | disposition home or self-care (01) ==
LOC: ER 22:40
DX: R10.84 Generalized abdominal pain (principal); Z88.5 Allergy status to narcotic agent
CPT/HCPCS: 36415; 80053; 81003; 81015; 81025; 83690; 85025; 96374; 96375; 99283; J2550; J3010

== ENCOUNTER 2022-09-03 08:44 | Emergency (ER) | payer SELFPAY ==
--- OUTSIDE RECORDS SUMMARY | 2022-09-03 08:47 | XMS REPORT | Clinical Summary ---
:1985 Author Organization [facility] MD [facility] [employer] [facility] Address [address] [place] [address] Care Team Providers Name Role Phone Keila [...] malignant melanoma of skin 10/26/2021 Travel after 09/03/2021 Immunizations Name Administration Dates Next Due Influenza [...] OVARIAN CYST SURGERY 08/29/2018 - Right 09/28/2018 NM EXCISION MAL LESION 09/23/2018 Abdomen/Right Procedure : EXCISION OF TRUNK/ARM/LEG 0.6-1.0 CM MALIGNA NT LESION OF TRUNK, right epi gastric; Surgeon: Nicolasa Valentine MD; Location: [facility] OR; Service: SURG ON C - [...] 10/25/2022 Follow-Up Dermatology Lisbeth Shannon M D [address] [place], [place] [address] (Wo rk) Health Maintenance Due Date Last Done Comments COVID-19 Vaccination (#1) 01/11/1987 Results Not on fileafter 09/03/2021 Advance Directives Code Status Date Activated Date Inactivated Comments Full Code 10/04/2018 8:21 PM 10/08/2018 5:55 PM Code Status Date Activated Date Inactivated Comments Full Code 09/23/2018 1:48 PM 09/23/2018 6:55 PM Care Teams Enrollment Processor Relationship Specialty Start Date End Date Keila Valentine MD PCP - General Surgical Oncology 08/26/18 [address] [place] [address] Navi Arango FNP PCP - External Primary Family Practice 09/08/18 [address] [place] [address]
--- OUTSIDE RECORDS SUMMARY | 2022-09-03 09:03 | XMS REPORT | Continuity of Care Document ---
:1985 Author Organization [facility] t Address [address] [place] [address] [place] [id number] Care Team Providers Name Role Phone Keila Valentine MD Primary Care Physician Josué Arango Attending Clinician Unavailable SANTINO_Melinda Attending Clinician Unavailable MAGDALENE LUCIA Attending Clinician Unavailable Magdalene Lucia MD Attending Clinician Unknown, Attending Attending Clinician Unavailable RIDGE PAGAN Attending Clinician Unavailable Ridge Pagan MD Attending Clinician Truman Quintero Attending Clinician Unavailable TRICE HARRIS Attending Clinician Unavailable Steven KNOWLES, Trice Attending Clinician Mohan MAKEUP ARTIST, Ameena Attending Clinician AMEENA PRESTON Attending Clinician Unavailable Praveen Blas MD Attending Clinician EKTA BERMUDEZ Attending Clinician Unavailable PATRICK CARRANZA Attending Clinician Unavailable Olga Clements Attending Clinician Unavailable LEANNE LOZOYA S Attending Clinician Unavailable Lozoyayovany GARCIA, Leanne S Attending Clinician Eve Chaves RN Attending Clinician Unavailable Patrick Schumacher Attending Clinician Doctor Unassigned, [place] Attending Clinician Unavailable SETH DYKES Attending Clinician [...] Number Effective Date Expiration Date Abhinav durbin [id number] 1958 00:00:00 MEDI-SHARE C1 [id number] [facility] MEDI-SHARE C1 [id number] [facility] MEDI-SHARE C1 [id number] [facility] [id number] 1958 00:00:00 MEDI-SHARE C1 [id number] [facility] PHCS GENERIC [id number] 2018 00:00:00 Problems Condition Condition Condition Status [...] of preprocedu preprocedu 00:00: g of this [place] [facility] [place] 00 note examinatio examinatio might be Gian [...] l (LUF/LI V/SA) 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 Memoria l (LUF/LI V/SA) Pain in Pain in Problem Active [facility] pelvis pelvis [facility] (LUF/LI V/SA) Anxiety Anxiety Problem Active [facility] (LUF/LI V/SA) [id number] Endometrio Problem Active Co mmon ma [facility] No known No known Disease Unive rs active active ity of problems problems [facility] Allergies, Adverse Reactions, Alerts Allergy Allergy Status Severity Reaction(s) Onset Inactive Treating Comm ents Source Name Type Date Date Clinician ket[place] DA Active MS rash 2021-07 [facility] [place] 00[facility] [place] DA Active U rash [facility] 2[facility]07 [place] 00:[facility] 00 [facility] K[place]A DRUG Active Low Rash 2020-07 Univers C INGREDI 2- ity of 00:00: [address] [place] Propensi Active Rash 2020-07 Univer s c ty to 2-22 ity of adverse 00:00: [place] reaction 00 Medical s Branch ketorola DA Active MS [facility] 9[facility]10 [facility] [place] DA Active U [facility] c 9-24 [place] 00:[facility]: d 00 Medical [place] DA Active U rash [facility] c 9-24 [place] 00:[facility]: d 00 [facility] [place] Drug Active Itching Univers c Allergy 1-19 ity of 00:00: [place] 00 MD [facility] 0 Drug Active Unknown [facility] Toradol DA Active Unknown Rash [facility] (LUF/LI V/SA) Family History Family Member Diagnosis Comments Start Date Stop Date Source Natural mother -Breast cancer [facility] [place] [facility] Social History Social Habit Start Date Stop Date Quantity Comments Source History of Tobacco [facility] - Use [facility] ASSERTION [facility] Exposure to 2022-04-27 2022-05-07 Not sure [facility] SARS-CoV-2 (event) 00:00:00 07:55:00 [facility] Tobacco use and 2021-08-29 2021-08-29 Smokeless Universit y of exposure 00:00:00 00:00:00 tobacco non-user [facility] Alcohol intake 2018-10-04 2018-10-04 Current University of 00:00:00 00:00:00 non-drinker of [place] MD [facility] (finding) Cigarettes smoked 2018-09-04 2018-09-04 Univers ity of current (pack per 00:00:00 00:00:00 [place] René Neely ) - Reported Cancer Ce nter Cigarette 2018-09-04 2018-09-04 University of pack-years 00:00:00 00:00:00 [facility] Sex Assigned At [birth year] [facility] 00:00:00 [facility]:00:00 Hospital Smoking Status Start Date Stop Date Source Tobacco smoking [facility] consumption unknown Never smoked tobacco [facility] Former Smoker 2020-05-03 00:00:00 2020-05-03 [facility] Ce nter Medications Ordered Filled Start Stop Current Ordering Indication Dosage Frequency Signature Comments Components Source Medication Medication Date Date Medication? Clinician (SIG) Name Name ondansetron 2021-07- No [id number] 8mg Univers (ZOFRAN-ODT 2-15 -14 ity of ) 00:45: 23:45 [place] disintegrat 00 :00 Medical ing tablet Branch 8 mg ondansetron 2021-07- No [id number] 8mg 8 mg, Univers (ZOFRAN-ODT 2-15 -14 Oral, ity of ) 00:45: 23:45 ONCE, 1 [place] disintegrat 00 :00 dose, On Medi felipa ing tablet Wed Branch 8 mg 06/13/22 at 1845, Routine benzonatate 2021-07 Yes [id number] 200mg Take 2 Univers 100 mg 2-14 capsules ity of capsule 00:00: by mouth [place] 00 every 8 Medical (eight) Branch hours as needed for Cough. ondansetron 2021-07 Yes [id number] 4mg Take 1 Univers 4 mg 2-14 tablet by ity of disintegrat 00:00: mouth [place] ing tablet 00 every 8 Medica l (eight) Branch hours as needed for Nausea and Vomiting (N/V). nirmatrelvi 2021-07 Yes [id number] 3{tbl} Take 3 Univers r-ritonavir 2-14 tablets by it y of (PAXLOVID, 00:00: mouth in [place] as EUA,) 300 00 the Medical mg (150 mg morning Branch x 2)-100 mg and 3 tablet tablets in the evening. ondansetron 2021-07 Yes [id number] 4mg Take 1 Univers 4 mg 2-14 tablet by ity of disintegrat 00:00: mouth [place] ing tablet 00 every 8 Medica l (eight) Branch hours as needed for Nausea and Vomiting (N/V). nirmatrelvi 2021-07 Yes [id number] 3{tbl} Take 3 Univers r-ritonavir 2-14 tablets by it y of (PAXLOVID, 00:00: mouth in [place] as EUA,) 300 00 the Medical mg (150 mg morning Branch x 2)-100 mg and 3 tablet tablets in the evening. promethazin 2021-07 Yes [id number] 5mL Take 5 mL Univers e-dextromet 2-14 by mouth 4 it y of horphan 00:00: (four) [place] 6.25-15 00 times Medical mg/5 mL daily as Branch syrup needed for Cough. nirmatrelvi 2021-07- No [id number] 3{tbl} Take 3 Univers r-ritonavir 2-14 12-14 tablets by i ty of (PAXLOVID, 00:00: 00:00 [place] EUA,) 300 00 :00 the Medical mg (150 mg morning Branch x 2)-100 mg and 3 tablet tablets in the evening. benzonatate 2021-07 No [id number] 200mg Take 2 Univers 100 mg 2-14 [...] n: Perioperat kieran Patient tamsulosin 2021-07 Yes [id number] .4mg Take 1 U nivers 0.4 mg 24 07-07 capsule by ity of hr capsule 00:00: mouth at [place] as 00 bedtime. Medical Branch tamsulosin 2021-07- No [id number] .4mg Take 1 Univers 0.4 mg 24 [...] 10 mg dose, On Branch [facility] 02/19/22 at 1030, JOSE NaCl 0.9% No 1000mL at 999 Uni vers (NS) bolus 02-19 mL/hr, ity of infusion 15:30: 15:58 1,000 mL, [place] as 1,000 mL 00 :00 IV Medical Infusion, Branch ONCE, 1 dose, On [facility] 02/19/22 at 1030, JOSE morpHINE (4 No 4mg 4 mg, Slow Univers mg/mL) 02-19 IV Push, ity of injection 4 14:45: 15:05 [place]CE, 1 [place] mg 00 :00 dose, On Medical [facility] 02/19/22 at 0945, STAT ondansetron No 4mg 4 mg, Slow Univers (ZOFRAN 02-19 IV Push, ity of (PF)) 14:30: 15:05 ONCE, 1 [place] injection 4 00 :00 dose, On Medi felipa mg [facility] 02/19/22 at 0930, JOSE methylPREDN 2021-0 Yes [id number] Take by Univers ISolone 6-01 mouth ity of (MEDROL, 00:00: SEE-INSTRU [place] TE,) 4 mg 00 CTIONS. Medica l tablets follow Branch package directions methylPREDN Yes [id number] Take by Univers ISolone 11-29 mouth ity of (MEDROL, 00:00: SEE-INSTRU [place] TE,) 4 mg 00 CTIONS. Medica l tablets follow Branch package directions methylPREDN Yes [id number] Take by Univers ISolone 11-29 mouth ity of (MEDROL, 00:00: SEE-INSTRU [place] TE,) 4 mg 00 CTIONS. Medica l tablets follow Branch package directions methylPREDN 2021- No [id number] Take by Univers ISolone 11-29 12-14 mouth ity of (MEDROL, 00:00: 00:00 [place]IN[place] TE,) 4 mg 00 :00 CTIONS. Medica l tablets follow Branch package directions amoxicillin 2021- No [id number] 1{tbl} Take 1 Univers -clavulanat 11-29 tablet [...] [place] ORAL) 44 Medical Branch naproxen Yes [id number] 500mg Take 1 U nivers (NAPROSYN) 2-02 tablet by ity of 500 mg 00:00: mouth 2 [place] tablet 00 (two) Medical times Branch daily with meals. naproxen 2021-0 Yes [id number] 500mg Take 1 U nivers (NAPROSYN) 2-02 tablet by ity of 500 mg 00:00: mouth 2 [place] tablet 00 (two) Medical times Branch daily with meals. naproxen 2021-0 Yes [id number] 500mg Take 1 U nivers (NAPROSYN) 2-02 tablet by ity of 500 mg 00:00: mouth 2 [place] tablet 00 (two) Medical times Branch daily with meals. naproxen 2021-0 Yes [id number] 500mg Take 1 U nivers (NAPROSYN) 2-02 tablet by ity of 500 mg 00:00: mouth 2 [place] tablet 00 (two) Medical times Branch daily with meals. naproxen 2021-0 Yes [id number] 500mg Take 1 U nivers (NAPROSYN) 2-02 tablet by ity of 500 mg 00:00: mouth 2 [place] tablet 00 (two) Medical times Branch daily with meals. albuterol 2020-07 Yes [id number] 2{puff} Inhale 2 Univers 90 2-22 Puffs [...] Cough. Indication s: cough albuterol 2020-07 Yes [id number] 2{puff} Inhale 2 Univers 90 2-22 Puffs [...] Cough. Indication s: cough albuterol 2020-07 Yes [id number] 2{puff} Inhale 2 Univers 90 2-22 Puffs [...] Cough. Indication s: cough albuterol 2020-07 Yes [id number] 2{puff} Inhale 2 Univers 90 2-22 Puffs [...] Cough. Indication s: cough albuterol 2020-07 Yes [id number] 2{puff} Inhale 2 Univers 90 2-22 Puffs [...] 00:00: MOUTH EVERY DAY Medical IN THE [place] MORNING ON AN EMPTY STOMACH levothyroxi 2020-07 Yes TAKE 1 Univ ers ne 137 mcg 2-16 TABLET BY ity of tablet 00:00: MOUTH EVERY DAY Medical IN THE [place] MORNING ON AN EMPTY STOMACH acetaminoph acetaminoph [...] 0-23 [facility] 00:[facility]: - [facility] 00 [facility] Premarin Premarin 2018-07 No 1{table QD Premarin 1.25 MG 1.25 MG 0-23 t} 1.25 MG 00:00: 00 estrogens, 2018-07 Yes Take by Univ ers conjugated 0-23 mouth ity of (PREMARIN 00:00: daily. [place] ORAL) 00 MD Gian payton [facility] estrogens, 2018-07 Yes Take by Univ ers conjugated 0-23 mouth ity of (PREMARIN 00:00: daily. [place] ORAL) 00 MD Gian payton [facility] estrogens, 2018-07 Yes Take by Univ ers conjugated 0-23 mouth ity of (PREMARIN 00:00: daily. [place] ORAL) 00 MD Gian payton [facility] estrogens, 2018-07 Yes Take by Univ ers conjugated 0-23 mouth ity of (PREMARIN 00:00: daily. [place] ORAL) 00 MD Gian payton [facility] estrogens, 2018-07 Yes Take by Univ ers conjugated 0-23 mouth ity of (PREMARIN 00:00: daily. [place] ORAL) 00 MD Gian payton [facility] estrogens, 2018-07 Yes Take by Univ ers conjugated 0-23 mouth ity of (PREMARIN 00:00: daily. [place] ORAL) 00 [facility] tata [facility] estrogens, 2018-07 Yes Take by Univ ers conjugated 0-23 mouth ity of (PREMARIN 00:00: daily. [place] ORAL) 00 [facility] tata [facility] estrogens, 2018-07 Yes Take by Univ ers conjugated 0-23 mouth ity of (PREMARIN 00:00: daily. [place] ORAL) 00 [facility] t[facility] estrogens, 2018-07 Yes Take by Univ ers conjugated 0-23 mouth ity of (PREMARIN 00:00: daily. [place] ORAL) 00 MD [facility] tata [facility] estrogens, 2018-07 Yes Take by Univ ers conjugated 0-23 mouth ity of (PREMARIN 00:00: daily. [place] ORAL) MD [facility] tata [facility] estrogens, 2018-07 Yes Take by Univ ers conjugated 0-23 mouth ity of (PREMARIN 00:00: daily. [place] ORAL) 00 MD [facility] tata [facility] estrogens, 2018-07 Yes Take by Univ ers conjugated 0-23 mouth ity of (PREMARIN 00:00: daily. [place] ORAL) 00 MD [facility] tata [facility] estrogens, 2018-07 Yes Take by Univ ers conjugated 0-23 mouth ity of (PREMARIN 00:00: daily. [place] ORAL) 00 [facility] Yes Take by Univ ers conjugated 0-23 mouth ity of (PREMARIN 00:00: daily. [place] ORAL) 00 MD [facility] tata [facility] estrogens, 2018-07 Yes Take by Univ ers conjugated 0-23 mouth ity of (PREMARIN 00:00: daily. [place] ORAL) 00 MD [facility] tata [facility] estrogens, 2018-07 Yes Take by Univ ers conjugated 0-23 mouth ity of (PREMARIN 00:00: daily. [place] ORAL) 00 MD [facility] tata [facility] estrogens, 2018-07 Yes Take by Univ ers conjugated 0-23 mouth ity of (PREMARIN 00:00: daily. [place] ORAL) 00 [facility] Estradiol Estradiol 2018-07 Yes Kaywin 1 tablet Common 0-01 [facility] 00:[facility]: - [facility] 00 [facility] citalopram 2018-0 Yes Univers (CeleXA) 40 9-10 ity of mg tablet 00:00: [place] 00 [facility] Univers (CeleXA) 40 9-10 ity of mg tablet 00:00: [facility] 0 Yes Univers (CeleXA) 40 9-10 ity of mg tablet 00:00: [facility] tata [facility] Yes Univers (CeleXA) 40 9-10 ity of mg tablet 00:00: [facility] Yes Univers (CeleXA) 40 9-10 ity of mg tablet 00:00: [facility] Yes Univers (CeleXA) 40 9-10 ity of mg tablet 00:00: [facility] 0 Yes Univers (CeleXA) 40 9-10 ity of mg tablet 00:00: [facility] Yes Univers (CeleXA) 40 9-10 ity of mg tablet 00:00: [facility] Yes Univers (CeleXA) 40 9-10 ity of mg tablet 00:00: [facility] 0 Yes Univers (CeleXA) 40 9-10 ity of mg tablet 00:00: [facility] 0 Yes Univers (CeleXA) 40 9-10 ity of mg tablet 00:00: [place] [facility] citalopra Yes Univers (CeleXA) 40 9-10 ity of mg tablet 00:00: [facility] 0 Yes Univers (CeleXA) 40 9-10 ity of mg tablet 00:00: [facility] 0 Yes Univers (CeleXA) 40 9-10 ity of mg tablet 00:00: [facility] 0 Yes Univers (CeleXA) 40 9-10 ity of mg tablet 00:00: [place] MD Gian payton [facility] citalopram 0 Yes Univers (CeleXA) 40 9-10 ity of mg tablet 00:00: [place] MD [facility] [place] citalopram 0 Yes Univers (CeleXA) 40 9-10 ity of mg tablet 00:00: [place] 00 MD Gian payton [facility] levothyroxi 0 Yes Univer s ne 175 mcg 8-10 ity of cap 00:00: [place] 00 MD [facility] levothyroxi 0 Yes Univer s ne 175 mcg 8-10 ity of cap 00:00: [place] [facility] levothyroxi 0 Yes Univer s ne 175 mcg 8-10 ity of cap 00:00: [place] 00 MD [facility] levothyroxi 0 Yes Univer s ne 175 mcg 8-10 ity of cap 00:00: [place] 00 MD [facility] levothyroxi 0 Yes Univer s ne 175 mcg 8-10 ity of cap 00:00: [place] 00 MD [facility] levothyroxi 0 Yes Univer s ne 175 mcg 8-10 ity of cap 00:00: [place] 00 MD [facility] levothyroxi 0 Yes Univharitha s ne 175 mcg 8-10 ity of cap 00:00: [place] 00 MD [facility] levothyroxi 0 Yes Univer s ne 175 mcg 8-10 ity of cap 00:00: [place] MD [facility] levothyroxi 0 Yes Univer s ne 175 mcg 8-10 ity of cap 00:00: [place] 00 MD [facility] levothyroxi 0 Yes Univer s ne 175 mcg 8-10 ity of cap 00:00: [place] MD [facility] levothyroxi 0 Yes Univer s ne 175 mcg 8-10 ity of cap 00:00: [place] 00 MD [facility] levothyroxi 0 Yes Univer s ne 175 mcg 8-10 ity of cap 00:00: [place] 00 MD [facility] levothyroxi 0 Yes Univer s ne 175 mcg 8-10 ity of cap 00:00: [place] 00 Dustin tata [facility] levothyroxi 2010-0 Yes Univer s ne 175 mcg 8-10 ity of cap 00:00: [place] 00 Dustinmorena payton [facility] levothyroxi 2010-0 Yes Univer s ne 175 mcg 8-10 ity of cap 00:00: 00 [facility] levothyroxi 2010-0 Yes Univer s ne 175 mcg 8-10 ity of cap 00:00: [place] 00 Gian tata [facility] levothyroxi 0 Yes Univer s ne 175 mcg 8-10 ity of cap 00:00: [place] 00 [facility] zolpidem 2006-0 Yes Univers (AMBIEN) 10 07-01 ity of mg tablet 00:00: [place] 00 [facility] pay[facility] zolpidem 2007-0 Yes Univers (AMBIEN) 10 07-01 ity of mg tablet 00:00: [place] 00 [facility] tata [facility] zolpidem 2006-0 Yes Univers (AMBIEN) 10 07-01 ity of mg tablet 00:00: [place] 00 [facility] zolpidem 2007-0 Yes Univers (AMBIEN) 10 07-01 ity of mg tablet 00:00: [place] 00 [facility] zolpidem 2007-0 Yes Univers (AMBIEN) 10 07-01 ity of mg tablet 00:00: [place] 00 MD Gian payton [facility] zolpidem 2007-0 Yes Univers (AMBIEN) 10 07-01 ity of mg tablet 00:00: [place] 00 MD Gian payton [facility] zolpidem 2007-0 Yes Univers (AMBIEN) 10 07-01 ity of mg tablet 00:00: [place] [address] [facility] zolpidem 2007-0 Yes Univers (AMBIEN) 10 07-01 ity of mg tablet 00:00: [place] 00 MD Gian payton [facility] zolpidem 2007-0 Yes Univers (AMBIEN) 10 07-01 ity of mg tablet 00:00: [place] 00 MD Gian payton [facility] zolpidem 2007-0 Yes Univers (AMBIEN) 10 07-01 ity of mg tablet 00:00: [place] 00 MD Gian payton [facility] zolpidem Yes Univers (AMBIEN) 10 07-01 ity of mg tablet 00:00: [facility] zolpidem Yes Univers (AMBIEN) 10 07-01 ity of mg tablet 00:00: [facility] zolpidem Yes Univers (AMBIEN) 10 07-01 ity of mg tablet 00:00: [facility] zolpidem Yes Univers (AMBIEN) 10 07-01 ity of mg tablet 00:00: [facility] A[facility] payton [facility] zolpidem Yes Univers (AMBIEN) 10 07-01 ity of mg tablet 00:00: [facility] A[facility] payton [facility] zolpidem Yes Univers (AMBIEN) 07-01 ity of mg tablet 00:00: MD Gian payton [facility] zolpidem Yes Univers (AMBIEN) 10 07-01 ity of mg tablet 00:00: [place] 00 [facility] acetaminoph acetaminoph Yes 1 Q5.00H [...] Memoria l (LUF/LI V/SA) Celexa Celexa Yes Kay 1 tablet Commo n Aiden [facility] Levothyroxi Levothyroxi Yes y 1 tablet Common ne Sodium ne Sodium Aiden on an Sp karla empty - [facility] stomach in [facility] Estradiol Estradiol Yes Kay 1 patch to Common Aiden skin [facility] Promethazin Promethazin No 1{table Promethazi e HCl 25 mg e HCl 25 mg t_as_ne ne HCl 25 eded} mg Estradiol Estradiol No 1{patch Estradiol 0.1 MG/24HR 0.1 MG/24HR _to_ski 0.1 n} MG/24HR Celexa 40 Celexa 40 No 1{table QD Celexa 40 MG MG t} MG Panola Panola No 1{table QID [place] 7.5-325 MG 7.5-325 MG t_as_ne 7.5-325 MG [...] Sodium 150 MCG 150 MCG 150 MCG Panola Panola No 1{table QID [place] 7.5-325 MG 7.5-325 MG t_as_ne 7.5-325 MG eded} Promethazin Promethazin No 1{table Promethazi e HCl 25 mg e HCl 25 mg t_as_ne ne HCl 25 eded} mg Estradiol Estradiol No 1{patch Estradiol 0.1 MG/24HR 0.1 MG/24HR _to_ski 0.1 n} MG/24HR Premarin Premarin No 1{table QD Premarin 1.25 MG 1.25 MG t} 1.25 MG Panola Panola No 1{table QID [place] 7.5-325 MG 7.5-325 MG t_as_ne 7.5-325 MG [...] 1.25 MG 1.25 MG t} 1.25 MG Panola Panola No 1{table QID [place]ola 7.5-325 MG 7.5-325 MG t_as_ne 7.5-325 MG [...] University of Unspecified 00:00:00 [place] [facility] Td 2011-03-30 Completed University of 00:00:00 [place] [facility] Influenza, 2011-03-30 Completed University of Unspecified 00:00:00 [place] [facility] Td 2011-03-30 Completed University of 00:00:00 [place] [facility] Influenza, 2011-03-30 Completed University of Unspecified 00:00:00 [place] MD [facility] 2011-03-30 Completed University of 00:00:00 [place] [facility] Influenza, 2011-03-30 Completed University of Unspecified 00:00:00 [place] [facility] Td 2011-03-30 Completed University of 00:00:00 [place] [facility] Influenza, 2011-03-30 Completed University of Unspecified 00:00:00 [place] [facility] Td 2011-03-30 Completed University of 00:00:00 [place] [facility] Influenza, 2011-03-30 Completed University of Unspecified 00:00:00 [place] [facility] Td 2011-03-30 Completed University of 00:00:00 [place] [facility] Influenza, 2011-03-30 Completed University of Unspecified 00:00:00 [place] [facility] Td 2011-03-30 Completed University of 00:00:00 [place] [facility] Influenza, 2011-03-30 Completed University of Unspecified 00:00:00 [place] [facility] Td 2011-03-30 Completed University of 00:00:00 [place] [facility] Influenza, 2011-03-30 Completed University of Unspecified 00:00:00 [place] [facility] Tdap 2011-03-30 Completed University of 00:00:00 [place] Olvin [facility] Influenza, 2011-03-30 Completed University of Unspecified 00:00:00 [place] Alfonso ilir [facility] Tdap 2011-03-30 Completed University of 00:00:00 [place] Olvin [facility] Influenza, 2011-03-30 Completed University of Unspecified 00:00:00 [place] Alfonso hazel [facility] Tdap 2011-03-30 Completed University of 00:00:00 [place] Olvin [facility] Influenza, 2011-03-30 Completed University of Unspecified 00:00:00 [place] [facility] Td[facility] 2011-03-30 Completed University of 00:00:00 [place] [facility] Influenza, 2011-03-30 Completed University of Unspecified 00:00:00 [place] [facility] Tdap 2011-03-30 Completed University of 00:00:00 [place] [facility] Influenza, 2011-03-30 Completed University of Unspecified 00:00:00 [place] [facility] Tdap 2011-03-30 Completed University of 00:00:00 [place] [facility] Influenza, 2011-03-30 Completed University of Unspecified 00:00:00 [place] [facility] Tdap 2011-03-30 Completed [facility] 00:00:00 [place] [facility] Influenza, 2011-03-30 Completed [facility] Unspecified 00:00:00 [place] [facility] Tdap 2011-03-30 Completed [facility] 00:00:00 [place] [facility] Influenza, 2011-03-30 Completed [facility] Unspecified 00:00:00 [place] [facility] Tdap 2011-03-30 Completed [facility] 00:00:00 [place] [facility] Influenza (IM) 2009-04-05 Completed University of Preservative Free 00:00:[address] [facility] Influenza (IM) 2009-04-05 Completed [facility] of Preservative Free 00:00:[address] [place] Influenza (IM) 2009-04-05 Completed [facility] of Preservative Free 00:00:[address] [facility] Influenza (IM) 2009-04-05 Completed [facility] of Preservative Free 00:00:[address] [facility] Influenza (IM) 2009-04-05 Completed [facility] of Preservative Free 00:00:[address] [facility] Influenza (IM) 2009-04-05 Completed [facility] of Preservative Free 00:00:[address] [facility] Influenza (IM) 2009-04-05 Completed [facility] of Preservative Free 00:00:[address] [facility] Influenza (IM) 2009-04-05 Completed [facility] of Preservative Free 00:00:[address] [facility] Influenza (IM) 2009-04-05 Completed [facility] of Preservative Free 00:00:[address] [facility] Influenza (IM) 2009-04-05 Completed [facility] of Preservative Free 00:00:[address] [facility] Influenza (IM) 2009-04-05 Completed [facility] of Preservative Free 00:00:[address] [facility] Influenza (IM) 2009-04-05 Completed [facility] of Preservative Free 00:00:[address] [facility] Influenza (IM) 2009-04-05 Completed [facility] of Preservative Free 00:00:[address] [facility] Influenza (IM) 2009-04-05 Completed [facility] of Preservative Free 00:00:[address] [facility] Influenza (IM) 2009-04-05 Completed [facility] of Preservative Free 00:00:[address] [facility] Influenza (IM) 2009-04-05 Completed [facility] of Preservative Free 00:00:[address] [facility] Influenza (IM) 2009-04-05 Completed [facility] of Preservative Free 00:00:[address] [facility] Vital Signs Vital Name Observation Time Observation Value Comments Source Systolic blood 2022-06-13 23:28:00 132 mm[Hg] Univer sity of pressure [facility] Diastolic blood 2022-06-13 23:28:00 83 mm[Hg] Unive rsity of pressure [facility] Heart rate 2022-06-13 23:28:00 107 /min [facility] Body temperature 2022-06-13 23:28:00 37.17 Ericka [facility] Respiratory rate 2022-06-13 23:28:00 16 /min [facility] Body height 2022-06-13 23:28:00 162.6 cm [facility] Body weight 2022-06-13 23:28:00 102.15 kg [facility] [place] [facility] BMI 2022-06-13 23:28:00 38.66 kg/m2 [facility] Oxygen saturation in 2022-06-13 23:28:00 96 /min [facility] Arterial blood by [facility] Pulse oximetry Branch Systolic blood 2022-05-07 14:46:22 [...] [facility] of Arterial blood by [facility] Pulse oximetry Branch Body temperature 2022-05-07 14:07:33 37 Ericka [facility] Body height 2022-05-07 13:56:00 162.6 cm [facility] Body weight 2022-05-07 13:56:00 108.863 kg [facility] BMI 2022-05-07 13:56:00 41.20 kg/m2 [facility] Systolic blood 2022-02-19 14:13:00 156 mm[Hg] [facility]iver [facility] Diastolic blood 2022-02-19 14:13:00 94 mm[Hg] Unive rsity of pressure [facility] Heart rate 2022-02-19 14:13:00 111 [...] 2022-02-19 14:13:00 39.48 kg/m2 [facility] Oxygen saturation in 2022-02-19 14:13:00 99 /min [facility] Arterial blood by [facility]ipa Pulse oximetry Branch Systolic blood 2021-11-29 22:40:00 116 mm[Hg] Univer sity of pressure [facility] Diastolic blood 2021-11-29 22:40:00 85 mm[Hg] Unive rsity of pressure [facility] Heart rate 2021-11-29 22:40:00 87 /min [facility] Body temperature 2021-11-29 22:40:00 37.28 Ericka Univ ers[facility] Respiratory rate 2021-11-29 22:40:00 16 /min Univ ersity of [facility] Body height 2021-11-29 22:40:00 162.6 cm [facility] [place] [facility] [place] Body weight 2021-11-29 22:40:00 103.874 kg [facility] BMI 2021-11-29 22:40:00 39.31 kg/m2 [facility] Oxygen saturation in 2021-11-29 22:40:00 98 /min [facility] Arterial blood by [facility] Pulse oximetry Branch Height 2021-04-23 00:58:00 162.56 [...] 15:16:33 119 mm[Hg] Univer sity of pressure [place] [facility] Diastolic blood 2021-10-26 15:16:33 87 mm[Hg] Unive rsity of pressure [place] [facility] Heart rate 2021-10-26 15:16:33 92 /min [facility] Respiratory rate 2021-10-26 15:16:33 16 /min [facility] Oxygen saturation in 2021-10-26 15:16:33 98 /min [facility] Arterial blood by Jeffrey muñoz Pulse oximetry [facility] Body Temperature 2021-04-23 00:58:00 97.8 [degF] [facility] (LUF/DAVID/SA) Pulse Rate 2021-04-23 00:58:00 116 /min [facility] ([facility]DAVID/[facility]) Respiratory Rate 2021-04-23 00:58:00 18 /min [facility] (LUF/DAVID/SA) O2% BldC Oximetry 2021-04-23 00:58:00 99 % [facility] (LUF/DAVID/SA) BP Systolic 2021-04-23 00:58:00 111 mm[Hg] [facility] ([facility]DAVID/SA) BP Diastolic 2021-04-23 00:58:00 77 mm[Hg] [facility] ([facility]F/DAVID/SA) Height 2021-04-23 00:58:00 64 [in_i] [facility] (LUF/DAVID/SA) Weight 2021-04-23 00:58:00 105.1 kg [facility] (LUF/DAVID/SA) BMI (Body Mass 2021-04-23 00:58:00 40 kg/m2 [facility] (LUF/DAVID/SA) Body Temperature 2021-03-24 10:53:00 98.6 [degF] [facility] (LUF/DAVID/SA) Pulse Rate 2021-03-24 10:53:00 87 /min [facility] (LUF/DAVID/SA) Respiratory Rate 2021-03-24 10:53:00 18 /min [facility] (LUF/DAVID/SA) O2% BldC Oximetry 2021-03-24 10:53:00 97 % [facility] (LUF/DAVID/SA) BP Systolic 2021-03-24 10:53:00 120 mm[Hg] [facility] ([facility]ID/[facility]) BP Diastolic 2021-03-24 10:53:00 86 mm[Hg] [facility] ([facility]F/[facility]ID/[facility]) Height 2021-03-24 10:53:00 64 [in_i] [facility] (LUF/DAVID/SA) Weight 2021-03-24 10:53:00 105 kg [facility] (LUF/DAVID/SA) BMI (Body Mass 2021-03-24 10:53:00 40 kg/m2 [facility] (LUF/DAVID/SA) Body Temperature 2021-03-10 10:55:00 98.4 [degF] [facility] (LUF/DAVID/SA) Pulse Rate 2021-03-10 10:55:00 85 /min [facility] ([facility]ID/[facility]) Respiratory Rate 2021-03-10 10:55:00 20 /min [facility] (LUF/DAVID/SA) O2% BldC Oximetry 2021-03-10 10:55:00 100 % [facility] (LUF/DAVID/SA) BP Systolic 2021-03-10 10:55:00 140 mm[Hg] [facility] ([facility]) BP Diastolic 2021-03-10 10:55:00 98 mm[Hg] [facility] ([facility]ID/[facility]) Height 2021-03-10 10:55:00 64 [in_i] [facility] (F/DAVID/SA) Weight 2021-03-10 10:55:00 105.2 kg [facility] (LUF/DAVID/SA) BMI (Body Mass 2021-03-10 10:55:00 40 kg/m2 [facility]) [facility] (LUF/DAVID/SA) Pulse Rate 2021-02-23 12:32:00 67 /min [facility] (F/DAVID/SA) O2% BldC Oximetry 2021-02-23 12:32:00 98 % [facility] (LUF/DAVID/SA) BP Systolic 2021-02-23 12:32:00 112 mm[Hg] [facility] (F/DAVID/SA) BP Diastolic 2021-02-23 12:32:00 70 mm[Hg] [facility] ([facility]) Heart Rate 2021-02-23 11:16:00 64 /min [facility] (F/DAVID/SA) Respiratory Rate 2021-02-23 11:16:00 14 /min [facility] (F/DAVID/SA) Body Temperature 2021-02-23 08:24:00 98.1 [degF] [facility] (F/DAVID/SA) Height 2021-02-23 08:24:00 64 [in_i] [facility] ([facility]) Weight 2021-02-23 08:24:00 110 kg [facility] (F/DAVID/SA) BMI (Body Mass 2021-02-23 08:24:00 41.9 kg/m2 [facility]) [facility] (F/DAVID/SA) Heart Rate 2021-01-10 01:46:00 93 /min [facility] (LUF/DAVID/[facility]) Pulse Rate 2021-01-10 01:46:00 95 /min [facility] ([facility]) Respiratory Rate 2021-01-10 01:46:00 16 /min [facility] (LUF/DAVID/SA) O2% BldC Oximetry 2021-01-10 01:46:00 97 % [facility] (LUF/DAVID/SA) BP Systolic 2021-01-10 01:46:00 103 mm[Hg] [facility] ([facility]) BP Diastolic 2021-01-10 01:46:00 71 mm[Hg] [facility] ([facility]) Weight 2021-01-10 00:53:00 102 kg [facility] ([facility]) Body Temperature 2021-01-10 00:47:00 98.6 [degF] [facility] (LUF/DAVID/SA) Pulse Rate 2020-12-12 14:20:00 87 /min [facility] ([facility]) O2% BldC Oximetry 2020-12-12 14:20:00 98 % [facility] (LUF/DAVID/SA) BP Systolic 2020-12-12 14:20:00 128 mm[Hg] [facility] ([facility]) BP Diastolic 2020-12-12 14:20:00 86 mm[Hg] [facility] ([facility]) Body Temperature 2020-12-12 12:39:00 98.9 [degF] [facility] (LUF/DAVID/SA) Respiratory Rate 2020-12-12 12:39:00 20 /min [facility] (LUF/DAVID/SA) Weight 2020-12-12 12:39:00 102 kg [facility] ([facility]ID/[facility]) Body Temperature 2020-12-08 10:27:00 98.6 [degF] [facility] (LUF/DAVID/SA) Pulse Rate 2020-12-08 10:27:00 79 /min [facility] ([facility]) Respiratory Rate 2020-12-08 10:27:00 16 /min [facility] (LUF/DAVID/SA) O2% BldC Oximetry 2020-12-08 10:27:00 99 % [facility] (LUF/DAVID/SA) BP Systolic 2020-12-08 10:27:00 111 mm[Hg] [facility] ([facility]) BP Diastolic 2020-12-08 10:27:00 57 mm[Hg] [facility] ([facility]) Weight 2020-12-08 10:27:00 103 kg [facility] (LUF/DA[facility]ID/SA) Body Temperature 2020-11-25 00:27:00 97.9 [degF] [facility] (LUF/DAVID/SA) Pulse Rate 2020-11-25 00:27:00 82 /min [facility] ([facility]ID/[facility]) Respiratory Rate 2020-11-25 00:27:00 17 /min [facility] (LUF/DAVID/SA) O2% BldC Oximetry 2020-11-25 00:27:00 98 % [facility] (LUF/DAVID/SA) BP Systolic 2020-11-25 00:27:00 109 mm[Hg] [facility] ([facility]) BP Diastolic 2020-11-25 00:27:00 62 mm[Hg] [facility] ([facility]ID/[facility]) Heart Rate 2020-11-21 09:30:00 75 /min [facility] (LUF/DAVID/SA) Respiratory Rate 2020-11-21 09:30:00 14 /min [facility] (LUF/DAVID/SA) BP Systolic 2020-11-21 09:30:00 120 mm[Hg] [facility] ([facility]) BP Diastolic 2020-11-21 09:30:00 76 mm[Hg] [facility] ([facility]F/[facility]ID/[facility]) Body Temperature 2020-11-21 07:15:00 98.1 [degF] [facility] (LUF/DAVID/SA) Pulse Rate 2020-11-21 07:15:00 103 /min [facility] ([facility]F/[facility]ID/SA) O2% BldC Oximetry 2020-11-21 07:15:00 100 % [facility] (LUF/DAVID/SA) Height 2020-11-21 07:15:00 64 [in_i] [facility] ([facility]ID/[facility]) Weight 2020-11-21 07:15:00 103.1 kg [facility] (LUF/DAVID/SA) BMI (Body Mass 2020-11-21 07:15:00 39.2 kg/m2 [facility] (LUF/DAVID/SA) Heart Rate 2020-11-14 13:30:00 69 /min [facility] (LUF/DAVID/SA) Pulse Rate 2020-11-14 13:30:00 70 /min [facility] (LUF/DAVID/SA) Respiratory Rate 2020-11-14 13:30:00 10 /min [facility] (LUF/DAVID/SA) O2% BldC Oximetry 2020-11-14 13:30:00 96 % [facility] (LUF/DAVID/SA) BP Systolic 2020-11-14 13:30:00 103 mm[Hg] [facility] ([facility]) BP Diastolic 2020-11-14 13:30:00 77 mm[Hg] [facility] ([facility]) Body Temperature 2020-11-14 09:47:00 97.4 [degF] [facility] (F/DAVID/SA) Weight 2020-11-14 09:47:00 103 kg [facility] (F/DAVID/SA) Body Temperature 2020-11-08 08:32:00 98.1 [degF] [facility] (LUF/DAVID/SA) Pulse Rate 2020-11-08 08:32:00 82 /min [facility] ([facility]F/[facility]) Respiratory Rate 2020-11-08 08:32:00 20 /min [facility] (LUF/DAVID/SA) O2% BldC Oximetry 2020-11-08 08:32:00 100 % [facility] (LUF/DAVID/SA) BP Systolic 2020-11-08 08:32:00 129 mm[Hg] [facility] ([facility]) BP Diastolic 2020-11-08 08:32:00 72 mm[Hg] [facility] ([facility]) Height 2020-11-08 08:32:00 64 [in_i] [facility] ([facility]F/DA[facility]ID/SA) Weight 2020-11-08 08:32:00 103.1 kg [facility] (LUF/DAVID/SA) BMI (Body Mass 2020-11-08 08:32:00 39.2 kg/m2 [facility]) [facility] (LUF/DAVID/SA) Body Temperature 2020-11-01 00:58:00 98.7 [degF] [facility] (LUF/ADVID/SA) Pulse Rate 2020-11-01 00:58:00 104 /min [facility] (F/DAVID/SA) Respiratory Rate 2020-11-01 00:58:00 20 /min [facility] (F/DAVID/SA) O2% BldC Oximetry 2020-11-01 00:58:00 99 % [facility] (LUF/DAVID/SA) BP Systolic 2020-11-01 00:58:00 133 mm[Hg] [facility] ([facility]) BP Diastolic 2020-11-01 00:58:00 101 mm[Hg] [facility] (F/DAVID/SA) Height 2020-11-01 00:53:00 65 [in_i] [facility] (LUF/DAVID/SA) Weight 2020-11-01 00:53:00 103 kg [facility] (LUF/DAVID/SA) BMI (Body Mass 2020-11-01 00:53:00 37.8 kg/m2 [facility]) [facility] (LUF/DAVID/SA) Body Temperature 2020-10-04 23:51:00 98 [degF] [facility] (F/DAVID/SA) Pulse Rate 2020-10-04 23:51:00 96 /min [facility] (LUF/DAIVD/SA) Respiratory Rate 2020-10-04 23:51:00 20 /min [facility] (LUF/DAVID/SA) O2% BldC Oximetry 2020-10-04 23:51:00 98 % [facility] (LUF/DAVID/SA) BP Systolic 2020-10-04 23:51:00 125 mm[Hg] [facility] ([facility]) BP Diastolic 2020-10-04 23:51:00 73 mm[Hg] [facility] (LUF/DA[facility]ID/SA) Height 2020-10-04 23:47:00 65 [in_i] [facility] (LUF/[facility]ID/SA) Weight 2020-10-04 23:47:00 102.6 kg [facility] (LUF/DAVID/SA) BMI (Body Mass 2020-10-04 23:47:00 37.6 kg/m2 [facility] Index) [facility] (LUF/DAVID/SA) Body Temperature 2020-09-18 01:44:00 98.3 [degF] [facility] (LUF/DAVID/SA) Pulse Rate 2020-09-18 01:44:00 116 /min [facility] (F/DAVID/SA) Respiratory Rate 2020-09-18 01:44:00 20 /min [facility] (LUF/DAVID/SA) O2% BldC Oximetry 2020-09-18 01:44:00 99 % [facility] (LUF/DAVID/SA) BP Systolic 2020-09-18 01:44:00 127 mm[Hg] [facility] ([facility]) BP Diastolic 2020-09-18 01:44:00 83 mm[Hg] [facility] ([facility]) Height 2020-09-18 01:40:00 64 [in_i] [facility] ([facility]F/DAVID/SA) Weight 2020-09-18 01:40:00 102.8 kg [facility] (LUF/DAVID/SA) BMI (Body Mass 2020-09-18 01:40:00 39.1 kg/m2 [facility]) [facility] (LUF/DAVID/SA) Pulse Rate 2020-09-12 02:16:00 88 /min [facility] (LUF/DAVID/SA) O2% BldC Oximetry 2020-09-12 02:16:00 98 % [facility] (LUF/DAVID/SA) BP Systolic 2020-09-12 02:16:00 113 mm[Hg] [facility] ([facility]) BP Diastolic 2020-09-12 02:16:00 64 mm[Hg] [facility] ([facility]F/[facility]) Body Temperature 2020-09-12 00:56:00 97.9 [degF] [facility] (LUF/DAVID/SA) Respiratory Rate 2020-09-12 00:56:00 18 /min [facility] (F/DAVID/SA) Height 2020-09-12 00:50:00 65 [in_i] [facility] ([facility]) Weight 2020-09-12 00:50:00 104.5 kg [facility] (LUF/DAVID/SA) BMI (Body Mass 2020-09-12 00:50:00 38.3 kg/m2 [facility] (LUF/DAVID/SA) Pulse Rate 2020-08-22 03:16:00 100 /min [facility] (LUF/[facility]ID/SA) O2% BldC Oximetry 2020-08-22 03:16:00 95 % [facility] (LUF/DAVID/SA) BP Systolic 2020-08-22 03:16:00 129 mm[Hg] [facility] ([facility]) BP Diastolic 2020-08-22 03:16:00 88 mm[Hg] [facility] ([facility]F/[facility]) Body Temperature 2020-08-22 01:35:00 98.4 [degF] [facility] (LUF/DAVID/SA) Respiratory Rate 2020-08-22 01:35:00 20 /min [facility] (LUF/DAVID/SA) Height 2020-08-22 01:35:00 64 [in_i] [facility] ([facility]) Weight 2020-08-22 01:35:00 102 kg [facility] (LUF/DAVID/SA) BMI (Body Mass 2020-08-22 01:35:00 38.8 kg/m2 [facility]) [facility] (LUF/DAVID/SA) Pulse Rate 2020-08-06 03:31:00 83 /min [facility] ([facility]F/[facility]ID/SA) O2% BldC Oximetry 2020-08-06 03:31:00 96 % [facility] (LUF/DAVID/SA) BP Systolic 2020-08-06 03:31:00 127 mm[Hg] [facility] ([facility]) BP Diastolic 2020-08-06 03:31:00 82 mm[Hg] [facility] ([facility]F/[facility]) Body Temperature 2020-08-06 01:45:00 98 [degF] [facility] (LUF/DAVID/SA) Respiratory Rate 2020-08-06 01:45:00 20 /min [facility] (LUF/DAVID/SA) Height 2020-08-06 01:39:00 66 [in_i] [facility] ([facility]) Weight 2020-08-06 01:39:00 104.2 kg [facility] (LUF/DAVID/SA) BMI (Body Mass 2020-08-06 01:39:00 37.3 kg/m2 [facility]) [facility] (LUF/DAVID/SA) Pulse Rate 2020-07-19 11:16:00 67 /min [facility] (F/DAVID/SA) O2% BldC Oximetry 2020-07-19 11:16:00 94 % [facility] (LUF/DAVID/SA) BP Systolic 2020-07-19 11:16:00 101 mm[Hg] [facility] ([facility]) BP Diastolic 2020-07-19 11:16:00 63 mm[Hg] [facility] ([facility]) Body Temperature 2020-07-19 07:50:00 98 [degF] [facility] (LUF/DAVID/SA) Respiratory Rate 2020-07-19 07:50:00 18 /min [facility] (LUF/DAVID/SA) Weight 2020-07-19 07:50:00 100 kg [facility] ([facility]ID/[facility]) Heart Rate 2020-07-05 04:46:00 80 /min [facility] ([facility]) Respiratory Rate 2020-07-05 04:46:00 15 /min [facility] (LUF/DAVID/SA) BP Systolic 2020-07-05 04:46:00 134 mm[Hg] [facility] ([facility]) BP Diastolic 2020-07-05 04:46:00 60 mm[Hg] [facility] ([facility]) Body Temperature 2020-07-05 02:57:00 98 [degF] [facility] (LUF/DAVID/SA) Pulse Rate 2020-07-05 02:57:00 82 /min [facility] ([facility]) O2% BldC Oximetry 2020-07-05 02:57:00 99 % [facility] (LUF/DAVID/SA) Height 2020-07-05 02:50:00 65 [in_i] [facility] ([facility]) Weight 2020-07-05 02:50:00 102.1 kg [facility] (LUF/DAVID/SA) BMI (Body Mass 2020-07-05 02:50:00 37.5 kg/m2 [facility] (LUF/DAVID/SA) Body Temperature 2020-06-07 13:38:00 98.5 [degF] [facility] (LUF/DAVID/SA) Pulse Rate 2020-06-07 13:38:00 95 /min [facility] ([facility]) Respiratory Rate 2020-06-07 13:38:00 20 /min [facility] (LUF/DAVID/SA) O2% BldC Oximetry 2020-06-07 13:38:00 97 % [facility] (LUF/DAVID/SA) BP Systolic 2020-06-07 13:38:00 129 mm[Hg] [facility] ([facility]) BP Diastolic 2020-06-07 13:38:00 73 mm[Hg] [facility] ([facility]) Height 2020-06-07 13:38:00 64 [in_i] [facility] ([facility]) Weight 2020-06-07 13:38:00 99.79 kg [facility] (LUF/DAVID/SA) BMI (Body Mass 2020-06-07 13:38:00 38 kg/m2 [facility]) [facility] (LUF/DAVID/SA) Body Temperature 2020-05-31 09:45:00 99.6 [degF] [facility] (LUF/DAVID/SA) Pulse Rate 2020-05-31 09:45:00 86 /min [facility] ([facility]) Respiratory Rate 2020-05-31 09:45:00 18 /min [facility] (LUF/DAVID/SA) O2% BldC Oximetry 2020-05-31 09:45:00 98 % [facility] (LUF/DAVID/SA) BP Systolic 2020-05-31 09:45:00 118 mm[Hg] [facility]) BP Diastolic 2020-05-31 09:45:00 78 mm[Hg] [facility] ([facility]) Height 2020-05-31 09:45:00 64 [in_i] [facility] ([facility]) Weight 2020-05-31 09:45:00 99.79 kg [facility] ([facility]F/DAVID/SA) BMI (Body Mass 2020-05-31 09:45:00 38 kg/m2 [facility]) [facility] (LUF/DAVID/SA) Heart Rate 2020-04-25 20:01:00 69 /min [facility] ([facility]) Pulse Rate 2020-04-25 20:01:00 71 /min [facility] ([facility]) Respiratory Rate 2020-04-25 20:01:00 18 /min [facility] (LUF/DAVID/SA) O2% BldC Oximetry 2020-04-25 20:01:00 100 % [facility] (LUF/DAVID/SA) BP Systolic 2020-04-25 20:01:00 126 mm[Hg] [facility] ([facility]) BP Diastolic 2020-04-25 20:01:00 86 mm[Hg] [facility] ([facility]) Body Temperature 2020-04-25 16:50:00 98.4 [degF] [facility] (LUF/DAVID/SA) Height 2020-04-25 16:50:00 64 [in_i] [facility] ([facility]) Weight 2020-04-25 16:50:00 220 [lb_av] [facility]) BMI (Body Mass 2020-04-25 16:50:00 38 kg/m2 [facility] (LUF/DAVID/SA) Heart Rate 2020-03-20 18:18:00 112 /min [facility] ([facility]) Pulse Rate 2020-03-20 18:16:00 93 /min [facility] ([facility]) O2% BldC Oximetry 2020-03-20 18:16:00 92 % [facility] (LUF/DAVID/SA) BP Systolic 2020-03-20 18:16:00 127 mm[Hg] [facility] ([facility]) BP Diastolic 2020-03-20 18:16:00 85 mm[Hg] [facility] ([facility]) Body Temperature 2020-03-20 17:17:00 99.2 [degF] [facility] (LUF/DAVID/SA) Respiratory Rate 2020-03-20 17:17:00 19 /min [facility] (LUF/DAVID/SA) Height 2020-03-20 17:17:00 64 [in_i] [facility]) Weight 2020-03-20 17:17:00 106.9 kg [facility] ([facility]) BMI (Body Mass 2020-03-20 17:17:00 40.7 kg/m2 [facility] ([facility]) Respiratory Rate 2020-03-17 10:33:00 16 /min [facility] ([facility]) Body Temperature 2020-03-17 07:54:00 97.9 [degF] [facility] ([facility]) Pulse Rate 2020-03-17 07:54:00 83 /min [facility] ([facility]) O2% BldC Oximetry 2020-03-17 07:54:00 96 % [facility] ([facility]) BP Systolic 2020-03-17 07:54:00 107 mm[Hg] [facility] ([facility]) BP Diastolic 2020-03-17 07:54:00 75 mm[Hg] [facility] ([facility]) Weight 2020-03-17 00:09:00 105.6 kg [facility] ([facility]) Heart Rate 2020-03-13 15:46:00 81 /min [facility] ([facility]) Height 2020-03-13 15:31:00 64 [in_i] [facility] ([facility] Body Temperature 2020-03-02 15:20:00 98.6 [degF] [facility] ([facility]) Pulse Rate 2020-03-02 15:20:00 86 /min [facility] ([facility]) Respiratory Rate 2020-03-02 15:20:00 18 /min [facility] ([facility]) O2% BldC Oximetry 2020-03-02 15:20:00 99 % [facility] ([facility]) BP Systolic 2020-03-02 15:20:00 131 mm[Hg] [facility] ([facility] BP Diastolic 2020-03-02 15:20:00 85 mm[Hg] [facility] ([facility] Height 2020-03-01 10:54:00 64 [in_i] [facility] ([facility] Weight 2020-03-01 10:54:00 102 kg [facility] (LUF/DAVID/SA) BMI (Body Mass 2020-03-01 10:54:00 38.8 kg/m2 [facility] (LUF/DAVID/SA) Respiratory Rate 2020-02-27 07:47:00 16 /min [facility] (LUF/DAVID/SA) Body Temperature 2020-02-27 07:32:00 98.2 [degF] [facility] (LUF/DAVID/SA) Pulse Rate 2020-02-27 07:32:00 94 /min [facility] (LUF/DAVID/SA) O2% BldC Oximetry 2020-02-27 07:32:00 95 % [facility] (LUF/DAVID/SA) BP Systolic 2020-02-27 07:32:00 111 mm[Hg] [facility] (LUF/DAVID/SA) BP Diastolic 2020-02-27 07:32:00 56 mm[Hg] [facility] (LUF/DAVID/SA) Weight 2020-02-26 02:09:00 99.6 kg [facility] (LUF/DAVID/SA) Height 2020-02-25 10:03:00 64 [in_i] [facility] (LUF/DAVID/SA) Body Temperature 2020-02-25 00:52:00 97.9 [degF] [facility] (LUF/DAVID/SA) Pulse Rate 2020-02-25 00:52:00 118 /min [facility] (LUF/DAVID/SA) Respiratory Rate 2020-02-25 00:52:00 18 /min [facility] (LUF/DAVID/SA) O2% BldC Oximetry 2020-02-25 00:52:00 97 % [facility] (LUF/DAVID/SA) BP Systolic 2020-02-25 00:52:00 133 mm[Hg] [facility] (LUF/DAVID/SA) BP Diastolic 2020-02-25 00:52:00 67 mm[Hg] [facility] (LUF/DAVID/SA) Height 2020-02-25 00:47:00 64 [in_i] [facility] (LUF/DAVID/SA) Weight 2020-02-25 00:47:00 103.4 kg [facility] (LUF/DAVID/SA) BMI (Body Mass 2020-02-25 00:47:00 39.3 kg/m2 [facility] (LUF/DAVID/SA) Body Temperature 2020-01-25 11:32:00 98.4 [degF] [facility] (LUF/DAVID/SA) Pulse Rate 2020-01-25 11:32:00 81 /min [facility] (LUF/DAVID/SA) Respiratory Rate 2020-01-25 11:32:00 14 /min [facility] (LUF/DAVID/SA) O2% BldC Oximetry 2020-01-25 11:32:00 98 % [facility] (LUF/DAVID/SA) BP Systolic 2020-01-25 11:32:00 139 mm[Hg] [facility] (LUF/DAVID/SA) BP Diastolic 2020-01-25 11:32:00 89 mm[Hg] [facility] (LUF/DAVID/SA) Height 2020-01-25 11:32:00 64 [in_i] [facility] (LUF/DAVID/SA) Weight 2020-01-25 11:32:00 100.5 kg [facility] (LUF/DAVID/SA) BMI (Body Mass 2020-01-25 11:32:00 38.2 kg/m2 [facility] (LUF/DAVID/SA) Heart Rate 2019-11-24 04:16:00 84 /min [facility] (LUF/DAVID/SA) Pulse Rate 2019-11-24 04:16:00 90 /min [facility] (LUF/DAVID/SA) Respiratory Rate 2019-11-24 04:16:00 26 /min [facility] (LUF/DAVID/SA) O2% BldC Oximetry 2019-11-24 04:16:00 98 % [facility] (LUF/DAVID/SA) BP Systolic 2019-11-24 04:16:00 106 mm[Hg] [facility] (LUF/DAVID/SA) BP Diastolic 2019-11-24 04:16:00 69 mm[Hg] [facility] (LUF/DAVID/SA) Body Temperature 2019-11-24 00:54:00 98.4 [degF] [facility] (LUF/DAVID/SA) Height 2019-11-24 00:49:00 65 [in_i] [facility] (LUF/DAVID/SA) Weight 2019-11-24 00:49:00 103 kg [facility] (LUF/DAVID/SA) BMI (Body Mass 2019-11-24 00:49:00 37.8 kg/m2 [facility]) [facility] (LUF/DAVID/SA) Heart Rate 2019-10-07 22:54:00 83 /min [facility] (LUF/DAVID/SA) Respiratory Rate 2019-10-07 22:54:00 14 /min [facility] (LUF/DAVID/SA) Pulse Rate 2019-10-07 22:31:00 89 /min [facility] (LUF/DAVID/SA) O2% BldC Oximetry 2019-10-07 22:31:00 97 % [facility] (LUF/DAVID/SA) BP Systolic 2019-10-07 21:16:00 127 mm[Hg] [facility] (LUF/DAVID/SA) BP Diastolic 2019-10-07 21:16:00 85 mm[Hg] [facility] (LUF/DAVID/SA) Height 2019-10-07 20:41:00 64 [in_i] [facility] (LUF/DAVID/SA) Weight 2019-10-07 20:41:00 100.2 kg [facility] (LUF/DAVID/SA) BMI (Body Mass 2019-10-07 20:41:00 38.1 kg/m2 [facility]) [facility] (LUF/DAVID/SA) Pulse Rate 2019-09-20 04:16:00 96 /min [facility] (LUF/DAVID/SA) Respiratory Rate 2019-09-20 04:16:00 9 /min [facility] (LUF/DAVID/SA) O2% BldC Oximetry 2019-09-20 04:16:00 96 % [facility] (LUF/DAVID/SA) BP Systolic 2019-09-20 04:16:00 97 mm[Hg] [facility] (LUF/DAVID/SA) BP Diastolic 2019-09-20 04:16:00 76 mm[Hg] [facility] (LUF/DAVID/SA) Body Temperature 2019-09-20 00:44:00 98 [degF] [facility] (LUF/DAVID/SA) Height 2019-09-20 00:39:00 65 [in_i] [facility] (LUF/DAVID/SA) Weight 2019-09-20 00:39:00 101.9 kg [facility] (LUF/DAVID/SA) BMI (Body Mass 2019-09-20 00:39:00 37.4 kg/m2 [facility] (LUF/DAVID/SA) Pulse Rate 2019-08-17 04:31:00 81 /min [facility] (LUF/DAVID/SA) Respiratory Rate 2019-08-17 04:31:00 13 /min [facility] (LUF/DAVID/SA) O2% BldC Oximetry 2019-08-17 04:31:00 97 % [facility] (LUF/DAVID/SA) BP Systolic 2019-08-17 04:31:00 136 mm[Hg] [facility] (LUF/DAVID/SA) BP Diastolic 2019-08-17 04:31:00 75 mm[Hg] [facility] (LUF/DAVID/SA) Body Temperature 2019-08-17 02:23:00 97.6 [degF] [facility] (LUF/DAVID/SA) Height 2019-08-17 02:19:00 64 [in_i] [facility] (LUF/DAVID/SA) Weight 2019-08-17 02:19:00 100.6 kg [facility] (LUF/DAVID/SA) BMI (Body Mass 2019-08-17 02:19:00 38.3 kg/m2 [facility]) [facility] (LUF/DAVID/SA) Pulse Rate 2018-12-07 02:33:00 79 /min [facility] (LUF/DAVID/SA) Respiratory Rate 2018-12-07 02:33:00 15 /min [facility] (LUF/DAVID/SA) O2% BldC Oximetry 2018-12-07 02:33:00 96 % [facility] (LUF/DAVID/SA) BP Systolic 2018-12-07 02:33:00 120 mm[Hg] [facility] (LUF/DAVID/SA) BP Diastolic 2018-12-07 02:33:00 76 mm[Hg] [facility] (LUF/DAVID/SA) Body Temperature 2018-12-07 01:10:00 98.2 F [facility] (LUF/DAVID/SA) Height 2018-12-07 01:10:00 64 in [facility] (LUF/DAVID/SA) Weight Measured 2018-12-07 01:10:00 218.25 lbs Replaced by [facility] (LUF/DAVID/SA) BMI (Body Mass 2018-12-07 01:10:00 37.7 kg/m2 [facility]) [facility] (LUF/DAVID/SA) Pulse Rate 2018-09-30 19:40:00 70 /min [facility] (LUF/DAVID/SA) Respiratory Rate 2018-09-30 19:40:00 21 /min [facility] (LUF/DAVID/SA) O2% BldC Oximetry 2018-09-30 19:40:00 100 % [facility] (LUF/DAVID/SA) BP Systolic 2018-09-30 19:40:00 124 mm[Hg] [facility] (LUF/DAVID/SA) BP Diastolic 2018-09-30 19:40:00 88 mm[Hg] [facility] (LUF/DAVID/SA) Body Temperature 2018-09-30 19:23:00 99.3 F [facility] (LUF/DAVID/SA) Height 2018-09-30 19:23:00 66 in [facility] (LUF/DAVID/SA) Weight Measured 2018-09-30 19:23:[address] [facility] S [facility] (LUF/DAVID/SA) BMI (Body Mass 2018-09-30 19:23:00 34.5 kg/m2 [facility] Index) [facility] (LUF/DAVID/SA) Body Temperature 2018-09-01 13:59:00 98 F [facility] (F/DAVID/SA) Pulse Rate 2018-09-01 12:15:00 74 /min [facility] (F/DAVID/SA) Respiratory Rate 2018-09-01 12:15:00 16 /min [facility] (F/DAVID/SA) O2% BldC Oximetry 2018-09-01 12:15:00 98 % [facility] (F/DAVID/SA) BP Systolic 2018-09-01 12:15:00 131 mm[Hg] [facility] (F/DAVID/SA) BP Diastolic 2018-09-01 12:15:00 78 mm[Hg] [facility] (F/DAVID/SA) Height 2018-09-01 09:16:00 64 in [facility] (F/DAVID/SA) Weight Measured 2018-09-01 09:16:[address] [facility] S [facility] (LUF/DAVID/SA) BMI (Body Mass 2018-09-01 09:16:00 37 kg/m2 [facility] Index) [facility] (F/DAVID/SA) Body Temperature 2018-05-13 10:58:00 99 F [facility] (F/DAVID/SA) Pulse Rate 2018-05-13 10:58:00 97 /min [facility] (F/DAVID/SA) Respiratory Rate 2018-05-13 10:58:00 18 /min [facility] (F/DAVID/SA) O2% BldC Oximetry 2018-05-13 10:58:00 98 % [facility] (F/DAVID/SA) BP Systolic 2018-05-13 10:58:00 131 mm[Hg] [facility] (F/DAVID/SA) BP Diastolic 2018-05-13 10:58:00 88 mm[Hg] [facility] (LUF/DAVID/SA) Height 2018-05-13 10:58:00 64 in [facility] (LUF/DAVID/SA) Weight Measured 2018-05-13 10:58:00 207.23 lbs Replaced by [facility] (LUF/DAVID/SA) BMI (Body Mass 2018-05-13 10:58:00 35.8 [facility] (LUF/DAVID/SA) Body Temperature 2017-12-24 08:04:00 98.7 F [facility] (LUF/DAVID/SA) Respiratory Rate 2017-12-24 08:04:00 18 /min [facility] (F/DAVID/SA) O2% BldC Oximetry 2017-12-24 08:04:00 98 % [facility] (LUF/DAVID/SA) BP Systolic 2017-12-24 08:04:00 126 mm[Hg] [facility] (LUF/DAVID/SA) BP Diastolic 2017-12-24 08:04:00 86 mm[Hg] [facility] (LUF/DAVID/SA) Weight Measured 2017-12-24 08:04:00 207.23 lbs Replaced by [facility] (F/DAVID/SA) Body Temperature 2017-06-20 23:28:00 97.4 F [facility] (F/DAVID/SA) Respiratory Rate 2017-06-20 23:28:00 20 /min [facility] (F/DAVID/SA) O2% BldC Oximetry 2017-06-20 23:28:00 99 % [facility] (LUF/DAVID/SA) BP Systolic 2017-06-20 23:28:00 107 mm[Hg] [facility] (LUF/DAVID/SA) BP Diastolic 2017-06-20 23:28:00 76 mm[Hg] [facility] (LUF/DAVID/SA) Height 2017-06-20 23:28:00 64 in [facility] (LUF/DAVID/SA) Weight Measured 2017-06-20 23:28:00 217.15 lbs Replaced by [facility] (LUF/DAVID/SA) BMI (Body Mass 2017-06-20 23:28:[address] [facility] Index) [facility] (LUF[facility]DAVID/SA) Procedures Procedure Date / Time Performing Clinician Source Performed POCT SARS-COV-2 ANTIGEN 2022-06-13 23:43:00 Magdalene Lucia [facility] (BINAX NOW) [facility] CT ABDOMEN PELVIS WO 2022-05-07 15:06:09 Ridge Pagan [facility] BASIC METABOLIC PANEL (NA, 2022-05-07 14:20:00 Ridge Pagan [facility] K, CL, CO2, GLUCOSE, BUN, Medica l Branch CREATININE, CA) CBC WITH DIFF 2022-05-07 14:20:00 Ridge Pagan [facility] URINALYSIS 2022-05-07 14:20:00 Ridge Pagan [facility] CONSENT/REFUSAL FOR 2022-05-07 13:49:51 Doctor Unassigned, [facility] DIAGNOSIS AND TREATMENT [place] [facility] CT ABDOMEN PELVIS WO 2022-02-19 15:49:[address] [facility] LIPASE 2022-02-19 14:26:00 Steven [facility] COMP. METABOLIC PANEL 2022-02-19 14:26:00 Harris Trice [facility] ([id number]) [facility] CBC WITH DIFF 2022-02-19 14:26:00 Steven [facility] URINALYSIS 2022-02-19 14:26:00 Steven [facility] CONSENT/REFUSAL FOR 2022-02-19 14:11:01 Doctor Unassigned, [facility] DIAGNOSIS AND TREATMENT [place] [facility] POCT MOLECULAR FLU 2021-11-29 22:46:00 Ameena Preston [facility] INS INFUS DEV LT BASILIC 2020-03-15 00:00:[address] [facility] VN PERQ [facility] (LUF[facility]DAVID/SA) ULTRASONOGRAPHY LT UP EXT 2020-03-15 00:00:[address] [facility] VNS GUID [facility]) ROBOTIC LAP LYSIS OF 2020-03-02 12:56:[address] [facility] ADHESIONS [facility] (LUF/DAVID/SA) LAPAROSCOPY ENTEROLYSIS 2020-03-02 00:00:00 [...] 2015-04-20 14:01:[address] [facility] LUF [facility] (LUF/DAVID/SA) Hysterectomy [facility]) Total thyroidectomy [facility] section [facility] (LUF/DAVID/SA) ABDOMINAL ADHESIONS [facility] (LUF/DAVID/SA) Extracorporeal shockwave [facility] lithotripsy [facility] (LUF/DAVID/SA) MULTIPLE CYSTECTOMYS DONE [facility] (LUF/DAVID/SA) MULTIPLE CYSTECTOMYS DONE [facility] (LUF/DAVID/SA) ABDOMINAL ADHESIONS [facility] REMOVED [facility] (LUF/DAVID/SA) Appendectomy [facility] (LUF/DAVID/SA) Plan of Care Planned Activity Planned Date Details Comments Source Future Scheduled 2022-01-03 COVID-19 Vaccination [facility] [place] Test 06:07:35 (#1) [code = CAROLYNN-Dayo BARNARD [facility] (#1)] Center Future Scheduled 2022-01-03 COVID-19 Vaccination [facility] [place] Test 06:07:35 (#1) [code = HOWIE BARNARD [facility] Vaccination (#1)] Center Future Scheduled 2022-01-03 COVID-19 Vaccination [facility] [place] Test 06:07:35 (#1) [code = HOWIE BARNARD [facility] Vaccination (#1)] Center Future [...] Nba, STLMLC STLMLC Common 08:27:02 Josué 0127 [facility] 2021-07-26 Outpatient Nba, STLMLC STLMLC Common 14:20:31 Josué 1203 [facility] 2021-07-26 Outpatient Nba, STLMLC STLMLC Common 14:05:52 Josué 1027 [facility] 2021-07-26 Outpatient Nba, STLMLC STLMLC Common 12:01:28 Josué 1103 [facility] 2021-07-26 Outpatient Nba, STLMLC STLMLC Common 11:56:42 Josué 1019 [facility] 2021-07-26 Outpatient Nba, STLMLC STLMLC Common 11:49:38 Josué 0928 [facility] 2021-07-26 Outpatient Nba, STLMLC STLMLC Common 11:48:02 Josué 0922 [facility] 2021-07-26 Outpatient Nba, STLMLC STLMLC Common 11:47:47 Josué 0921 [facility] 2021-07-26 Outpatient Nba, STLMLC STLMLC Common 11:42:15 Josué 0901 [facility] 2021-07-26 Outpatient JEANA Arango [facility] [id number] Common 11:32:09 Josué 0720 [facility] 2022-07-22 2022-07-22 Outpatient FOG_Dunn_Wa AOSM AOSM 643 9319- Adelia 00:00:00 00:00:00 Jhon [id number] [facility] 2022-07-06 2022-07-06 Outpatient FOG_Dunn_Wa AOSM AOSM 643 [place] 00:00:00 00:00:00 Jhon [id number] [facility] 2022-06-17 2022-06-17 Outpatient FOG_Dunn_Wa AOSM AOSM 643 [place] 00:00:00 00:00:00 Jhon [id number] [facility] 2022-06-13 2022-06-13 Outpatient R KHARI [facility] [id number] Univers 17:20:00 17:41:53 [facility] 2022-06-13 2022-06-13 Urgent Khari [facility] [id number] Univers 17:20:00 17:41:53 Care Unknown, [facility] [id number] ity [facility] 4.2.7.2.686 Jacques as SUE?BLEA [id number] [address] OFFICE [facility] 2022-06-13 2022-06-13 Telephone KhariRUST [id number] Univers 00:00:00 00:00:00 [facility] [id number] it y of [place] [id number] Jacques as SUE?BLEA [id number] [address] 2022-05-13 2022-05-13 Outpatient FOG_Dunn_Wa AOSM AO 643 [id number]- Adelia 00:00:00 00:00:00 Jhon [id number] [facility] 2022-05-07 2022-05-07 Emergency X JE [facility] ERT [id number] Univers 07:57:00 09:45:00 RIDGE [facility] 2022-05-07 2022-05-07 Emergency Ej, [facility] [id number] Univers 07:57:00 09:45:00 Azam THEODORESTANISLAV [id number] i ty of [place] 4.2.7.2.686 [facility] [id number] [address] 2022-05-07 2022-05-07 Outpatient FOG_Ingrid_Wa AOSM AOSM [id number] Adelia 00:00:00 00:00:00 Jhon [id number] [facility] 2022-04-23 2022-04-23 Emergency EM PACO Quintero [id number] [facility] 09:39:00 10:55:00 [facility] [place] [facility] 2022-02-19 2022-02-19 Emergency X STEVEN [facility] ERT [id number] Univers 09:15:00 11:05:00 TRICE [facility] 2022-02-19 2022-02-19 Emergency HarrisRUST [id number] Univers 09:15:00 11:05:00 Trice GAONA [id number] i ty [facility] 4.2.7.2.686 [facility] [id number] [address] 2021-11-29 2021-11-29 Urgent MohanRUST 1.2.840.114 [id number] Univers 17:40:00 18:00:00 Care [facility] [id number] it y of [place] [id number] Jacques as SUE?BLEA [phone] Hi dical [address] MEDICAL OFFICE BUILDING 2021-11-29 2021-11-29 Outpatient Irwin PRESTON [facility] [id number] Univers 17:40:00 17:40:00 [facility] 2021-11-29 2021-11-29 Outpatient Irwin PRESTON [facility] [id number] Univers 17:40:00 17:40:00 [facility] 2021-10-26 2021-10-26 Office GEOVANI Shiva, 1.2.840.1 [id number] Univers 09:45:00 10:47:06 Visit Praveen 56676.1.1 ity of 3.412.2.7 [place] .3.984438 MD Carter8 [facility] 2021-10-26 2021-10-26 Office Shiva, 1.2.840.1 [id number] Univers 09:45:00 10:47:06 Visit Praveen 64413.1.1 ity of 3.412.2.7 Jeffrey .3.689266 MD Carter8 [facility] 2021-10-26 2021-10-26 Travel 1.2.840.1 [id number] Univers 00:00:00 00:00:00 76455.1.1 350.1.13.41 ity of 3.412.2.[place] .3.264[place] 084.8 MD Carter8 [facility] 2021-10-26 2021-10-26 Travel 1.2.840.1 [id number] [id number] Univers 00:00:00 00:00:00 [id number] 350.1.13.41 ity of 3.412.2[place]3.288093 084.8 .8 [facility] 2021-10-15 2021-10-15 ROSEMARIE Conchis [facility] EMD [id number] 22:25:00 22:45:00 CONSCIOUS EKTA Gamboa s SIMULATION Memor prabhakar watts (TIERA/YUKI V/SA) 2021-10-15 2021-10-15 Inpatient [facility] [id number] [facility] 00:[facility] 00:00:00 KATY [id number] [facility], [phone] Memor prabhakar [address] stefanie MEHTA (TIERA/YUKI WEBB, V/SA) JULIÁN ROSA [id number] 2021-10-15 2021-10-15 Inpatient [facility] [id number] 00:00:00 00:00:00 KATY [id number] [facility], [id number] Memor in 12[address] [id number] l [place] (LUF/YUKI A[address], V/SA) [place] [address] 2021-08-29 2021-08-29 Outpatient R WINSOME [facility] [id number] Univers 16:20:00 16:20:00 PATRICK melo [facility] 2021-08-07 2021-08-07 Emergency EM Tyree, [facility] [id number] [facility] 09:36:00 12:55:00 Olga 19 [facility] 2021-08-01 2021-08-02 Emergency X DEVORARUST ERT [id number] Univers 22:00:00 01:17:00 LEANNE melo [facility] 2021-08-01 2021-08-02 Emergency DevoraRUST [id number] Univers 22:00:00 01:17:00 Leanne La [place] [id number] i ty of [place] 4.2.7.2.686 [place] [id number] [facility] 084 [place] 2021-06-28 2021-06-28 Outpatient R KHARI [facility] [id number] Univers 17:30:00 17:30:00 [facility] 2021-06-22 2021-06-22 Letter REHAN Chaves 1.2.840.114 [id number] Univers 00:00:00 00:00:00 (Out) Eve LEE 350.1.13.10 it y of [facility] 4.2.7.2.686 Jacques as [id number] [facility] 019 Branch 2021-06-22 2021-06-22 Refedgardo Carranza [facility] 1.2.840.114 [id number] Univers 00:00:00 00:00:00 [facility] [id number] it y of [place] 4.2.7.2.686 Jacques as SUE?BLEA [id number] [address] MEDICAL OFFICE BUILDING 2021-06-21 2021-06-21 Outpatient R RODRIGUEZRené [facility] [id number] Univers 11:00:00 12:14:12 PATRICK ity [facility] 2021-06-21 2021-06-21 Urgent Patrick Carranza [facility] 1.2.840.114 [id number] Univers 11:00:00 11:20:00 Care Green Ameena [facility] [id number] ity of [place] 4.2.7.2.686 Jacques as SUE?BLEA [id number] [address] MEDICAL OFFICE [facility] 2021-06-21 2021-06-21 Telephone Rodriguezrené [facility] 1.2.840.114 [id number] Univers 00:00:00 00:00:00 [facility] [id number] it y of [place] 4.2.7.2.686 Jacques as SUE?BLEA [id number] [address] MEDICAL OFFICE [facility] 2021-06-21 2021-06-21 Letter Doctor REHAN 1.2.840.114 [id number] Univers 00:00:00 00:00:00 (Out) Unassroxana, ROSA 350.1.13.10 ity of [place] [facility] 4.2.7.2.686 Jacques as [id number] [address] 2021-05-30 2021-05-30 [facility] [id number] Co mmon 00:00:00 00:00:00 [facility] 2021-05-29 2021-05-29 (TEL) STLC STLMLC [id number] Co mmon 00:00:00 00:00:00 [facility] 2021-04-26 2021-04-26 (TEL) STLC STLMLC [id number] Co mmon 00:00:00 00:00:00 [facility] 2021-04-23 2021-04-23 UNSPECIFIE 1 LONI DYKES EMD [id number] 00:46:00 02:08:00 D SETH Lulucia ABDOMINAL Memori a PAIN l (LUF/LI V/SA) 2021-04-23 2021-04-23 Inpatient [facility] [id number] [facility] 00:00:00 00:00:00 KATY [id number] [facility], [id number] Memor ia [id number] [place] (LUF/LI A[address], V/SA) [place] [address] 2021-04-23 2021-04-23 Inpatient [facility] [id number] [facility] 00:00:00 00:00:00 KATY [id number] [facility], [id number] Memor ia [address] [id number] l [address] (LUF/LI A[address], V/SA) [place] [address] 2021-03-24 2021-03-24 ANXIETY 1 [place], [facility] [id number] [facility] 10:25:00 12:27:00 DISORDER REHAN KATY [facility], Memor ia D [address] (LUF/LI A[address], V/SA) [place] [address] 2021-03-24 2021-03-24 Inpatient [facility] [id number] [facility] 00:00:00 00:00:00 KATY [id number] [facility], [id number] Memor ia [address] [id number] l [address] (LUF/LI A[address], V/SA) [place] [address] 2021-03-24 2021-03-24 Inpatient [facility] [id number] [facility] 00:00:00 00:00:00 KATY [id number] [facility], [id number] Memor ia [address] [id number] l [address] ([address]F/LI [address], V/SA) [place] [address] 2021-03-23 2021-03-23 Orders Adriana, [id number] [facility] 00:00:00 00:00:00 Only Viktoriya Charlton [id number] ity of [id number] [place] [id number] .[id number] [facility] 2021-03-10 2021-03-10 UTI SITE E [place], [facility] [id number] [facility] 10:29:00 13:50:00 NOT JUAN [facility], Memori a [address] ([address]F/LI [address], V/SA) [place] [address] 2021-03-10 2021-03-10 Inpatient [facility] [id number] [facility] 00:00:00 00:00:00 KATY [id number] [facility], [id number] Memor ia [address] [id number] l [address] (LUF/LI A[address], V/SA) [place] [address] 2021-03-10 2021-03-10 Inpatient [facility] [id number] [facility] 00:[facility]:00 00:00:00 KATY [id number] [facility], [id number] Memor ia [address] [id number] [address] (LUF/LI A[address], V/SA) [place] [address] 2021-02-23 2021-02-23 RIGHT E [facility] [id number] 08:15:00 12:44:00 [facility], Memoria PAIN [address] ([address]/LI [address], V/SA) [place] [address] 2021-02-23 2021-02-23 Inpatient [facility] [id number] [facility] 00:00:00 00:00:00 KATY [id number] [facility], [id number] Memor ia [address] [id number] l [address] (LUF/LI A[address], V/SA) [place] [address] 2021-02-23 2021-02-23 Inpatient [facility] [id number] e20f-[address] 00:00:00 00:00:00 KATY [id number]-[id number] [facility], [id number] Memor ia [address] [id number] l [place] (LUF/LI A[place], V/[place]) [place] [address] 2021-01-10 2021-01-10 RADU Jake DYKES, [facility] [place] [id number] [facility] [address] 00:21:00 03:06:00 OF KIDNEY SETH [facility], Memoria [address] [place] (LUF/LI AVE, V/SA) [place] [address] 2021-01-10 2021-01-10 Inpatient [facility] OF [place] [id number] [id number] [facility] 00:00:00 00:00:00 KATY [id number] [facility], [id number] Memor ia [address] [id number] l [place] (LUF/LI AVE, V/[place]) [place] [address] 2021-01-10 2021-01-10 Inpatient [facility] OF [facility] fe83-e [facility] 00:00:00 00:00:00 KATY [id number] [facility], [id number] Memor ia [address] [id number] l [place] (LUF/LI AVE, V/SA) [place] [address] 2020-12-27 2020-12-27 Emergency [facility] Zarina [id number] [address] [place] [address] 00:00:00 00:00:[address] 2020-12-22 2020-12-22 Outpatient 3 LONI MURILLO [facility] [id number] [facility] [address] 09:00:00 09:00:00 SKYE Dhaliwal Memoria l (LUF/LI V/SA) 2020-12-13 2020-12-13 Emergency EM [facility] [id number] 01:53:00 06:36:[address] [facility] 2020-12-12 2020-12-12 RIGHT Jake COTTON, [facility] [id number] 12:33:00 14:00:00 [facility], Memoria PAIN [address] [place] (LUF/LI AVE, V/[place]) [place] [address] 2020-12-12 2020-12-12 Inpatient [facility] e2c0 cb47-b [facility] 00:00:00 00:00:00 KATY 82f-[id number]-a [facility], [id number] Memor ia [address] [id number] l [place] (LUF/LI AVE, V/SA) [place] [address] 2020-12-12 2020-12-12 Inpatient [facility] 43ed f7fe-4 [facility] 00:00:00 00:00:00 KATY [id number] [facility], [id number] Memor ia [address] 70ade3 l [place] (LUF/LI AVE, V/SA) [place] [address] 2020-12-08 2020-12-08 UNSPECIFIE Jake SOTOMAYOR, [facility] [id number] [facility] [address] 09:44:00 12:26:00 D WYATT [facility]AL [place] [address] [place] (LUF/LI AVE, V/SA) [place] [address] 2020-12-08 2020-12-08 Inpatient [facility] 6a3f a794-a [facility] 00:00:00 00:00:00 KATY [id number] [facility], [id number] Memor ia [address] [id number] l [place] (LUF/LI AVE, V/SA) [place] [address] 2020-11-25 2020-11-25 UNSPECIFIE [facility] [id number] [facility] [address] 00:13:00 00:30:00 D [facility]AL [place], [facility] PAIN [address] [place] (LUF/LI AVE, V/SA) [place] [address] 2020-11-25 2020-11-25 Inpatient [facility] 3041 db6a-[address] 00:00:00 00:00:00 KATY [id number]-[id number] [facility], [id number] Memor ia [address] [id number] l [place] (LUF/LI AVE, V/SA) [place], [place]IÁN [address] 2020-11-25 2020-11-25 Inpatient [facility] a3eb ed11-a [facility] 00:00:00 00:00:00 KATY [id number] [facility], [id number] Memor ia [address] [id number] l [place] (LUF/LI AVE, V/SA) [place], [place] [address] 2020-11-21 2020-11-21 ENDOMETRIO 1 [facility] [id number] [facility] 07:14:00 09:53:00 SIS [facility] UNSPECIFIE [place], Memor ia D [address] [place] (LUF/LI AVE, V/SA) [place], [place] [address] 2020-11-21 2020-11-21 Inpatient [facility] 90f0 278b-0 [facility] 00:00:00 00:00:00 KATY [id number]-9 [facility], 4bb-[id number] Memor ia [address] [id number] l [place] (LUF/LI AVE, V/[place]) [place] [address] 2020-11-21 2020-11-21 Inpatient [facility] [id number] 9c7a-9 [facility] 00:00:00 00:00:00 KATY 30a-405e-8 [facility], [id number] Memor ia [address] [id number] l [place] (LUF/LI AVE, V/SA) [place], [place] [address] 2020-11-14 2020-11-[address] [facility] [id number] [facility] [address] 09:27:00 14:37:00 UNS REHAN Dhaliwal WITHOUT Memoria BLEEDING l (LUF/LI V/SA) 2020-11-14 2020-11-14 Inpatient [facility] d4fe d3e2-[address] 00:00:00 00:00:00 KATY 3cf-4b7a-a [facility], [id number] Memor ia [address] [id number] l [place] (LUF/LI AVE, V/[place]) [place] [address] 2020-11-14 2020-11-14 Inpatient [facility] 324e 65b9-b [facility] 00:00:00 00:00:00 KATY 464-403c-8 [facility], [id number] Memor ia [address] [id number] l [place] (LUF/LI AVE, V/SA) [place], [place] [address] 2020-11-08 2020-11-08 OTHER E YURY, [facility] [id number] [facility] 08:04:00 13:13:00 CHRONIC REHAN [facility], Memoria [address] [place] (LUF/LI AVE, V/SA) [place], [place] [address] 2020-11-08 2020-11-08 Inpatient [facility] 8079 b52c-c [facility] 00:00:00 00:00:00 KATY ed8-4ae3-8 [facility], [id number] Memor ia [address] [id number] l [place] (LUF/LI AVE, V/SA) [place], [place] [address] 2020-11-08 2020-11-08 Inpatient [facility] 0f07 dc59-5 [facility] 00:00:00 00:00:00 KATY 292-4184-b [facility], [id number] Memor ia [address] [id number] l [place] (LUF/LI AVE, V/SA) [place] [address] 2020-11-08 2020-11-08 Inpatient [facility] [id number] e14c-1 [facility] 00:00:00 00:00:00 KATY [id number] [facility], [id number] Memor ia [address] [id number] l [place] (LUF/LI AVE, V/SA) [place], [place] [address] 2020-11-01 2020-11-01 NAUSEA E WANDA, [facility] [id number] [facility] [address] 00:27:00 03:55:00 WITH CLEKRYSTINA [facility], Memoria UNSPECIFIE [address] l D [place] (LUF/LI AVE, V/SA) [facility] [place] [address] 2020-11-01 2020-11-01 Inpatient [facility] 1ec3 64c1-c [facility] 00:[facility]:00 00:00:00 KATY [id number]-n [facility], [id number] Memor ia [address] [id number] l [place] (LUF/LI AVE, V/SA) [place] [address] 2020-11-01 2020-11-01 Inpatient [facility] 79c0 b023-[address] 00:00:00 00:00:00 KATY [id number]-f [facility], [id number] Memor ia [address] [id number] l [place] (LUF/LI AVE, V/SA) [place] [address] 2020-10-04 2020-10-05 OTHER E RODRICK, [facility] [id number] 23:32:00 01:00:00 CHRONIC J[facility]AN [facility] [place], [facility] [address] (LUF/LI AVE, V/SA) [place] [address] 2020-10-04 2020-10-04 Inpatient [facility] b016 f3f5-a [facility] 00:00:00 00:00:00 KATY 4m6-4u3z-w [facility], [id number] Memor ia [address] [id number] l [place] (LUF/LI AVE, V/SA) [place] [address] 2020-10-04 2020-10-04 Inpatient [facility] ea96 0c7a-[address] 00:00:00 00:00:00 KATY 25c-4997-b [facility], [id number] Memor ia [address] [id number] l [place] (LUF/LI AVE, V/SA) [place] [address] 2020-09-18 2020-09-18 OTHER E [facility] [id number] 01:00:00 04:44:00 CHRONIC [facility] [place] [address] (LUF/LI A[place], V/[place]) [place] [address] 2020-09-18 2020-09-18 Inpatient [facility] b80a 7ee5-4 [facility] 00:00:00 00:00:00 KATY 1q4-957r-6 [facility], [id number] Memor ia [address] [id number] l [place] (LUF/LI A[place], V/[place]) [place] [address] 2020-09-18 2020-09-18 Inpatient [facility] 1a33 0198-a [facility] 00:00:00 00:00:00 KATY [id number] [facility], [id number] Memor ia [address] [id number] l [place] (LUF/LI AVE, V/SA) [place] [address] 2020-09-12 2020-09-12 ENDOMETRIO E RODRICK, [facility] [id number] [facility] 00:46:00 02:38:00 SIS [facility] UNSPECIFIE [place], Memor ia D [address] [place] (LUF/LI AVE, V/SA) [place] [address] 2020-09-12 2020-09-12 Inpatient [facility] 726d 153b-a [facility] 00:00:00 00:00:00 KATY [id number]-[id number] [facility], [id number] Memor ia [address] [id number] l [place] (LUF/LI AVE, V/SA) [place] [address] 2020-09-12 2020-09-12 Inpatient [facility] 9a2d b59c-c [facility] 00:00:00 00:00:00 KATY [id number] [facility], [id number] Memor ia [address] 655cce l [place] (LUF/LI AVE, V/SA) [place] [address] 2020-08-22 2020-08-22 OTHER E KOSCI, [facility] [id number] 01:13:00 03:24:00 [facility] PAIN [place], Memoria [address] (LUF/LI AVE, V/[place]) [place] [address] 2020-08-22 2020-08-22 Inpatient [facility] 7a1d d2a9-[address] 00:00:00 00:00:00 KATY [id number] [facility], [id number] Memor ia [address] [id number] l [place] (LUF/LI AVE, V/SA) [place] [address] 2020-08-22 2020-08-22 Inpatient [facility] [id number] 2542-f [facility] 00:00:00 00:00:00 KATY 72a-4479-9 [facility], [id number] Memor ia [address] [id number] l [place] (LUF/LI AVE, V/SA) [place] [address] 2020-08-06 2020-08-06 Inpatient E SANANAVDEEP, [facility] [id number] 01:21:00 03:35:00 [facility] [address] [place] (LUF/LI AVE, V/SA) [place] [address] 2020-08-06 2020-08-06 Inpatient [facility] [id number] 067c-a [facility] 00:00:00 00:00:00 KATY 2l6-7ti6-1 [facility], [id number] [facility] [address] [id number] l [place] (LUF/LI AVE, V/[place]) [place] [address] 2020-07-19 2020-07-19 RIGHT E COTTON, [facility] [id number] 07:50:00 11:20:00 [facility] PAIN [address] [place] (LUF/LI AVE, V/[place]) [place] [address] 2020-07-19 2020-07-19 Inpatient [facility] 625d 6050-c [facility] 00:00:00 00:00:00 KATY 92c-4e48-9 [facility], [id number] Memor ia [address] [id number] l [place] (LUF/LI AVE, V/[place]) [place] [address] 2020-07-19 2020-07-19 Inpatient [facility] [id number] [id number] [facility] 00:00:00 00:00:00 KATY bbb-4c99-b [facility], [id number] Memor ia [address] [id number] l [place] (LUF/LI AVE, V/[place]) [place] [address] 2020-07-05 2020-07-05 OTHER E RODRICK, [facility] [id number] [facility] [address] 02:42:00 05:00:00 [facility] [address] [place] (LUF/LI A[address], V/[place]) [place] [address] 2020-07-05 2020-07-05 Inpatient [facility] 525e 4189-f [facility] 00:00:00 00:00:00 KATY bff-495f-b [facility], [id number] Memor ia [address] 7ec68b l [place] (LUF/LI AVE, V/[place]) [place] [address] 2020-07-05 2020-07-05 Inpatient [facility] c54b 2c2e-e [facility] 00:00:00 00:00:00 KATY [id number] [facility], [id number] Memor ia [address] [id number] l [place] (LUF/LI AVE, V/[place]) [place] [address] 2020-06-10 2020-06-10 (TEL) [facility] [id number] Co mmon 00:00:00 00:00:00 [facility] - [facility] 2020-06-07 2020-06-07 Inpatient 1 YURY, [facility] [id number] [facility] [address] 12:56:00 19:04:00 REHAN [facility] [address] [place] (LUF/LI A[address], V/SA) [place] [address] 2020-06-07 2020-06-07 Inpatient [facility] 5603 [id number] [facility] 00:00:00 00:00:00 KATY aaa-[id number] [facility], [id number] [facility] [id number] l [place] (LUF/LI A[address], V/SA) [place] [address] 2020-05-31 2020-05-31 Inpatient E COTTON, [facility] [place] [id number] 09:31:00 14:13:00 [facility] [address] [place] (LUF/LI AVE, V/SA) [place] [address] 2020-05-10 2020-05-10 Outpatient STLMLC STLMLC [id number] Common 00:00:00 00:00:00 [facility] 2020-05-09 2020-05-09 Outpatient STLMLC STLMLC [id number] Common 00:00:00 00:00:00 [facility] 2020-05-05 2020-05-05 Outpatient STLMLC STLMLC [id number] Common 00:00:00 00:00:00 [facility] 2020-05-02 2020-05-02 Outpatient STLMLC STLMLC [id number] Common 00:00:00 00:00:00 [facility] 2020-05-02 2020-05-02 Outpatient STLMLC STLMLC [id number] Common 00:00:00 00:00:00 [facility] 2020-04-29 2020-04-29 Outpatient STLMLC STLMLC [id number] Common 00:00:00 00:00:00 [facility] 2020-04-25 2020-04-25 LEFT LOWER E [facility] [place] [id number] 16:46:00 21:30:00 [facility] [address] ([address]F/[address] [place], V/SA) [place] [address] 2020-04-22 2020-04-22 Outpatient STLMLC STLMLC [id number] Common 00:00:00 00:00:00 [facility] 2020-04-20 2020-04-20 PROC&[place] [facility] [place] [id number] 15:39:00 16:03:00 NOT EAST [facility] OUT PT [address]ADO MEHTA (TIERA/YUKI WEBB, Ольга/) [place] [address] 2020-04-20 2020-04-20 Outpatient STLMLC STLMLC [id number] Common 00:00:00 00:00:00 [facility] 2020-04-20 2020-04-20 Outpatient STLMLC STLMLC [id number] Common 00:00:00 00:00:00 [facility] 2020-04-15 2020-04-15 Outpatient STLMLC STLMLC [id number] Common 00:00:00 00:00:00 [facility] 2020-04-13 2020-04-13 Outpatient STLMLC STLMLC [id number] Common 00:00:00 00:00:00 [facility] 2020-04-12 2020-04-12 Outpatient STLMLC STLMLC [id number] Common 00:00:00 00:00:00 [facility] 2020-04-11 2020-04-11 Outpatient STLMLC STLMLC [id number] Common 00:00:00 00:00:00 [facility] 2020-04-08 2020-04-08 Outpatient STLMLC STLMLC [id number] Common 00:00:00 00:00:00 [facility] 2020-04-06 2020-04-06 Outpatient STLMLC STLMLC [id number] Common 00:00:00 00:00:00 [facility] 2020-04-04 2020-04-04 Outpatient STLMLC STLMLC [id number] Common 00:00:00 00:00:00 [facility] 2020-03-31 2020-03-31 Outpatient STLMLC STLMLC [id number] Common 00:00:00 00:00:00 [facility] 2020-03-29 2020-03-29 Outpatient GEOVANI BLAS MDA MDA [id number] MD 00:00:00 00:00:00 PRAVEEN payton 2020-03-29 2020-03-29 Outpatient STLMLC STLMLC [id number] Common 00:00:00 00:00:00 [facility] 2020-03-28 2020-03-28 Outpatient STLMLC STLMLC [id number] Common 00:00:00 00:00:00 [facility] 2020-03-22 2020-03-22 Outpatient STLMLC STLMLC [id number] Common 00:00:00 00:00:00 [facility] 2020-03-21 2020-03-21 Outpatient STLMLC STLMLC [id number] Common 00:00:00 00:00:00 [facility] 2020-03-20 2020-03-20 LOWER Jake COTTON, [facility] [place] [id number] [facility] [facility] 17:08:00 22:56:00 ABDOMINAL REHAN [facility] PAIN [facility] UNSPECIFIE [address] Chin MEHTA (LUF/LI AVE, V/SA) [place] [address] 2020-03-14 2020-03-17 CELLULITIS E RIVERA, [facility] [place] [id number] 14:54:00 11:30:00 OF TEMPLE [facility] ABDOMINAL [facility] a WALL [address] (LUF/LI AVE, V/SA) [place] [address] 2020-03-03 2020-03-03 Outpatient [facility] [id number] Common 13:33:00 13:33:00 [facility] 2020-03-02 2020-03-02 ALEJANDRA WOLFE, [facility] [id number] 05:58:00 15:35:00 PERITON LIZBETH [facility] POSTINFECT [address] KIERAN MEHTA (LUF/LI AVE, V/SA) [place] [address] 2020-03-02 2020-03-02 Outpatient STLMLC STLMLC [id number] Common 00:00:00 00:00:00 [facility] 2020-03-01 2020-03-01 Outpatient [facility] [id number] Common 09:15:00 09:15:[address] [facility] 2020-02-29 2020-02-29 Outpatient [facility] [id number] Common 09:30:00 09:30:[address] [facility] 2020-02-25 2020-02-27 LOWER E COTTON, [facility] [id number] 13:21:00 12:09:00 ABDOMINAL [facility] PAIN [facility] UNSPECIFIE [address] D [place] (LUF/LI AVE, V/SA) [place] [address] 2020-02-25 2020-02-25 UNSPECIFIE E RODRICK, [facility] [id number] [facility] 00:40:00 05:00:00 D JUAN [facility]AL [place] [address] (LUF/LI AVE, V/[place]) [place] [address] 2020-01-25 2020-01-25 LOW BACK 1 COTTON, [facility] [id number] [facility] 11:28:00 13:15:00 PAIN REHAN [facility] [address] (LUF/LI A[address], V/[place]) [place] [address] 2020-01-18 2020-01-18 Outpatient [facility] [id number] Common 11:45:00 11:45:[address] [facility] 2019-12-09 2019-12-09 OTHER E [facility] [id number] 03:03:00 05:08:00 CHRONIC [facility] [place], [facility] [address] (LUF/LI AVE, V/[place]) [place] [address] 2019-11-24 2019-11-24 UNSPECIFIE E [facility] [id number] 00:31:00 05:30:00 D [facility]BDOMINAL [place], [facility]IN [address] (LUF/LI A[place], V/[place]) [place] [address] 2019-10-07 2019-10-07 RIGHT 1 COTTON, [facility] [id number] 20:35:00 23:10:00 LOWER [facility] [place], Memoria PAIN [address], V/SA) [place] [address] 2019-09-20 2019-09-20 RIGHT 1 COTTON, [facility] [id number] 00:33:00 04:23:00 LOWER [facility] QUADRANT [place], Memoria PAIN [address], V/SA) [place] [address] 2019-08-17 2019-08-17 UNSPECIFIE 1 TRUX, [facility] [id number] 02:18:00 04:45:00 D TEMPLE KATY Luke s ABDOMINAL [place], Memori a PAIN [address] V/SA) [place] [address] 2019-04-22 2019-04-22 [facility] [id number] Common 12:03:00 12:03:00 [facility] 2019-04-14 2019-04-14 [facility] [id number] Common 16:12:00 16:12:00 [facility] 2019-04-06 2019-04-06 [facility] [id number] Common 12:16:00 12:16:00 [facility] 2019-03-31 2019-03-31 [facility] [id number] Common 14:00:00 14:00:00 [facility] 2018-12-07 2018-12-07 UNSPECIFIE 1 QUINTIN BRITO [facility] [id number] [facility] 01:06:00 04:45:00 D OVARIAN KATY Luke s CYST RIGHT [place] S[facility] [address] V/SA) [place] [address] 2018-10-29 2018-10-29 N-PRSS CHR [place], [facility] [id number] [facility] 06:59:00 23:59:00 ULCR SKIN MIKY [facility] [address] [place]) [facility] [place] [address] 2018-10-22 2018-10-22 N-PRSS CHR [place], [facility] [id number] [facility] 07:20:00 23:59:00 ULCR SKIN MIKY [facility] MUSC [address] V/SA) [place] [address] 2018-10-15 2018-10-15 N-PRSS CHR O [place], [facility] [place] [id number] 07:08:00 23:59:00 ULCR SKIN MIKY [facility] [address] V[address]) [facility] [place] [address] 2018-09-30 2018-10-01 INFCT FOL 1 SHABNAM, [facility] [id number] [facility] St 18:46:00 01:05:00 PRC SUPF DIMAS [facility] SIT INIT [address], V/SA) [place] [address] 2018-09-01 2018-09-01 OTH 1 WANDA, [facility] [place] [id number] [facility] 09:12:00 14:00:00 NONINFL CLEMENT [facility] D/O OVARY [facility] TUBE&BRD [address], V/SA) [place] [address] 2018-05-13 2018-05-13 Inpatient 1 WANDA, [facility] [place] [id number] 10:52:00 13:46:00 CLEMENT [facility] [address] V/SA) [place] [address] 2017-12-24 2017-12-24 UNSPECIFIE 1 QUINTIN BRITO [facility] [id number] [facility] 07:51:00 13:52:00 D OVARIAN [facility] CYST RIGHT [place], [facility] SIDE [address] V/SA) [place] [address] 2017-06-20 2017-06-21 HYDRONPHRO 1 RODRICK, [facility] [id number] [facility] 23:01:00 03:55:00 S JUAN [facility] RENL&URETR [place], Memor ia L CALCUL [address] V[address]SA) [place] [address] 2017-05-13 2017-05-13 OTHER 3 MERLE, [facility] [id number] 15:40:00 23:59:00 FATIGUE ASA [facility], Memoria [address] V[address]) [place] [address] Results Test Description Test Time Test Comments Results Result Comments Source POCT SARS-COV-2 ANTIGEN (BINAX NOW) 2022-06-13 23:43:00 Test Item Value Reference Range Interpretation Comme nts POCT SARS-COV-2 ANTIGEN (test code = 17815-6) Positive Not Dete cted A On board controls acceptable with C Line (test code = 3574) Yes Lab Interpretation (test code = 41844-4) Abnormal [facility] [facility] XR SHOULDER 2 + V [id number] 16:42:00 [facility] : 1985 Sex: F Patient Name: LAUREN BETH Unit No: [id number] EXAMS: CPT CODE: [id number] XR SHOULDER 2 + V LT [address]25 Left shoulder 3 views COMMENT: There is no evidence for fracture or subluxation. No focal bony lesions are seen. at 1642 Reported and signed by: Angelo Hardin MD CC: Truman Quintero MD Technologist: RT Reji.(R) TranscribedD/ (1641) SvitlanaL [facility] NAME: LAUREN BETH [address] [place] [address] PHYS: Truman Alfaro MD : 1985 AGE: 36 SEX: F [place] [address] : JOHNNIE PHONE #: [phone] EXAM DATE: 04/23/2022 STATUS: DEP ER FAX #: [phone] RAD #: D/C DT PAGE 1 Signed Report Patient Name: LAUREN BETH Unit No: [id number] EXAMS: CPT CODE: [id number] XR SHOULDER 2 + V LT [address]9264 (Continued) Orig Print D/T: S: 04/23/2022 (1644) [facility] NAME: LAUREN BETH [address] PHYS: Truman Alfaro MD : 1985 AGE: 36 SEX: F [place] [address] LOC: JOHNNIE PHONE #: [phone] EXAM DATE: 04/23/2022TATUS: DEP ER FAX #: [phone] RAD #: D/C DT PAGE 2 Signed Report COMP. METABOLIC PANEL (19145)2022-02-19 14:56:05 Test Item Value Reference Range Interpretation Comments NA (test code = 137 mmol/L 135-145 9885776479) K (test code = 4.2 mmol/L 3.5-5 4161332634) CL (test code = 108 mmol/L 98-108 7766692341) CO2 TOTAL (test code = 19 mmol/L 23-31 L 2441520674) AGAP (test code = 2-16 4935623453) BUN (test code = 14 mg/dL 7-23 0593423105) GLUCOSE (test code = 133 mg/dL 70-110 H 9739404221) CREATININE (test code = 0.56 mg/dL 0.5-1.04 0333403258) TOTAL BILI (test code = 0.4 mg/dL 0.1-1.8 0345769223) CALCIUM (test code = 8.9 mg/dL 8.6-10.6 8514205587) T PROTEIN (test code = 6.5 g/dL 6.3-8.2 9732666959) ALBUMIN (test code = 4.0 g/dL 3.5-5 6196038464) ALK PHOS (test code = 84 U/L 34-122 9642216810) ALTv (test code = 23 U/L 5-35 2-6) AST(SGOT) (test code = 24 U/L 13-40 6158405436) eGFR (test code = mL/min/1.73m2 0754360121) RENZO (test code = RENZO) Association of [...] tests). Lab Interpretation Abnormal (test code = 71466-4) [facility] 14:55:44 Test Item Value Reference Range Interpretation Comments LIPASE (test code = 5346593241) 81 U/L 0-220 Lab Interpretation (test code = Normal 69472-8) [facility] WITH [id number] 14:36:26 Test Item Value Reference Range Interpretation Comments WBC (test code = See_Comment [Automated 9990-2) message] The sy stem which generated this [...] RDW-SD (test code = 43.9 fL 39-49.9 38319-1) RDW-CV (test code = 13.7 % 12-15.5 788-0) PLT (test code = See_Comment [Automated 777-3) message] The sy stem which generated this result transmitted reference range : 166 - 358 10*3/ ?L. The reference r bruce was not used to interpret this result as normal/abnormal . MPV (test code = 8.5 fL 9.5-12.9 L 44932-4) NRBC/100 WBC (test See_Comment [Automat ed code = 8329754485) message] The system which generated this result transmitted reference range : 0.0 - 10.0 /100 WBCs. The refer ence range was not u sed to interpret th is result as normal/abnormal . NRBC x10^3 (test code See_Comment [Auto mated = 0813564785) message] The s ystem which generated this result transmitted reference range : 10*3/?L. The reference range was not used to interpret this result as normal/abnormal . GRAN MAT (NEUT) % 58.7 % (test code = 770-8) IMM GRAN % (test code 1.10 % = 6807390013) LYMPH % (test code = 31.6 % 736-9) MONO % (test code = 6.8 % 5905-5) EOS % (test code = 1.4 % 713-8) BASO % (test code = 0.4 % 706-2) GRAN MAT x10^3(ANC) 3.30 10*3/uL 1.88-7.09 (test code = 1053938812) IMM GRAN x10^3 (test 0.06 10*3/uL 0-0.06 code = 7213890231) LYMPH x10^3 (test code 1.77 10*3/uL 1.32-3.29 = 731-0) MONO x10^3 (test code 0.38 10*3/uL 0.33-0.92 = 742-7) EOS x10^3 (test code = 0.08 10*3/uL 0.03-0.39 711-2) BASO x10^3 (test code 0.01-0.07 = 704-7) Lab Interpretation Abnormal (test code = 50053-2) [facility]LE[facility]ULAR [id number] 22:58:14 Test Item Value Reference Range Interpretation Comments POCT Molecular FluA (test code = Negative Negative 56079-8) POCT Molecular FluB (test code = Negative Negative 00339-2) Lab Interpretation (test code = Normal 85407-0) [facility]ie[facility]ATIC FUNCTION PANEL (LIVER)2021-10-16 13:57:00 Test Item Value [...] (test code = 0.2 mg/dl 0.0-1.1 IBIL) [id number] 13:57:00 Test Item Value Reference Range Interpretation Comments Lipase (test code = LIPA) 114 U/L 73-393 [facility], [id number] 13:57:00 Test Item Value Reference Range Interpretation Comments Amylase (test code = AMYL) 51 U/L 25-115 [facility] CHEM [id number] 22:45:00 Test Item Value Reference Range Interpretation [...] [facility] CBC WITH AUTO [id number] 22:43:00 Test Item Value Reference Range Interpretation [...] = IG%) 0.2 % 0.0-0.4 STLMLHEPATIC FUNCTION [id number] 13:03:00 Test Item Value Reference Range Interpretation [...] 96 Unit/L 45-117 N code = ALKP) [id number] 13:03:00 Test Item Value Reference Range Interpretation Comments LIPASE (test code = LIP) 83 Unit/L 114-286 L BASIC METABOLIC [id number] 13:03:00 Test Item Value Reference Range Interpretation [...] 8.5-10.1 N UA RFLX MICR CULT IF [id number] 12:44:00 Test Item Value Reference Range Interpretation [...] DIPSTICK (test NEGATIVE SCREEN NEG code = ISAKA) UA LEUKOCYTE ESTERASE NEGATIVE Leuk/mcL NEGATIVE DIPSTICK (test code = LEUU) UA CULTURE NEEDED? 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 [...] BETH : 1985 Age/S: 36 / F [address] [address] [place] Unit #: [id number] Loc: Julián Holcomb [address] Phys: Marco Hilton NP Acct: [id number] Dis Date: Status: REG ER PHONE #: [phone] Exam Date: 08/07/2021 1223 FAX #: Reason: LLQ ABD PAIN EXAMS: CPT: [id number] CT ABD PELVIS W/CONT [address] &lt ;Continued> at 1227 Reported and signed by: Alma Cartwright M.D. CC: Olga Clements DO; Marco Hilton NP Technologist:RT Danyelle(R) CTDI: DLP: Trnscb Date/Time: 08/07/2021 (0607) VereniceMD16 Orig Print D/T: S: 08/07/2021 (2125) PAGE 2 Signed ReportCBC W/AUTO [id number] 12:23:00 Test Item Value Reference Range Interpretation [...] code NO DIFF/SCN CRITERIA = MDIFF) CORONAVIRUS 2018 (IN [place])(3HR)2021-03-24 17:04:00 Test Item Value Reference Range Interpretation Comments FT (test code Negative Negative N The BioGX SARS -CoV-2 = COVID) (qualifier value) Reagents f or BD MAX System, the Bio Fire Covid-19, and janel bolden Cepheid Covid-1 [...] contact the Coron[facility] at [phone]. [id number] 12:37:00 Test Item Value Reference Range Interpretation [...] 0.5-1.3 code = CREA) EGFR if >60 Barbadian (test code mL/min/1.73m\\ = EGFRAA) S\\2 EGFR if Non- >60 Estimate d Glomerular Barbadian (test code mL/min/1.73m\\ Filtrat ion Rate (eGFR) [...] and management of c hronic kidney failure. [facility] [id number] 12:11:00 Test Item Value Reference Range Interpretation [...] after the clini felipa event. STLMLPT AND [id number] 12:09:00 Test Item Value Reference Range Interpretation Comments Protime (test code 9.5 seconds 9.5-12.1 = PT) INR (test code = 0.9 0.9-1.1 INR results are intended INR) ONLY to monitor Oral Anticoagulant t herapy in stablized patie nts. The INR Therapeutic Range is 2.0 - 3.0 Patie nts with a mechanical he art, the INR Range is 2. 5 - 3.5 [id number] 12:09:00 Test Item Value Reference Range Interpretation Comments aPTT (test code = PTT) 22.3 seconds 23.9-30.7 L [facility] CBC WITH AUTO [id number] 11:57:00 Test Item Value Reference Range Interpretation [...] 0.3 % 0.0-0.4 STLMLXR CHEST AP/PA 1 [id number] 11:33:32 [facility]/[place])Name: LAUREN BETH : 1985 Sex: FProcedure: XR CHEST AP/PA 1 VIEWOrder Date: 03/24/2021 10:57 AMOrdering Provider: REHAN COTTONClinical Indication: [id number]: DyspneaComparison: September 30, 2018Findings:Cardiac size is normal.Pulmonary vasculature is normal.Mediastinal contour is normal.Aortic contour is normal.No acute infiltrates or effusions.There is no mass or pneumothorax.There is no evidence of active tuberculosis.There isno acute skeletal abnormality.Impression: Negative AP view of the chest.This final report was electronically signed by Dr Farzad Dewitt MD :28 AMDictated By: FARZAD DEWITT.Date: :28STLMLCULTURE, [id number] 08:00:00Specimen: Urine SpecimensCollected: 03/10/2021 11:50 Status: Final [...] code = NEGATIVE NEGATIVE N UKET) Specific [place] 1.015 1.005-1.030 A (test code = USPGR) Blood (test code = NEGATIVE NEGATIVE N UBLD) PH (test code = UPH) 7.0 4.5-8.0 A Protein (test code = NEGATIVE NEGATIVE N UPROT) Urobilinogen (test 0.2 See_Comment N [Automat ed message] code = U UROB) The system [facility] generated this result transmit michael reference range [...] = NSE) STLMLSTAT LAB CBC WITH AUTO [id number] 12:10:00 Test Item Value Reference Range Interpretation [...] [facility] CHEM [id number] 12:08:00 Test Item Value Reference Range Interpretation [...] = CREA) 0.5 mg/dl 0.6-1.3 L STLMLCULTURE, [id number] 08:26:00Specimen: Urine SpecimensCollected: 02/23/2021 08:35 Status: Final Last Updated: 02/24/2021 08:26 CULTURE (Final) (Final) Many Mixed Body Gabriela Isolated No Pathogens IsolatedSTLCT ABDOMEN/PELVIS W/[id number] 11:40:43 [facility] ([facility]VID/[place])Name: LAUREN BETH : 1985 Sex: FProcedure: CT ABDOMEN/PELVIS W/CONTRASTOrder date: 02/23/2021 10:08 AMOrdering Provider: REHAN VANG LALITAALLIVinnyinical Indication: [id number]: Right lower quadrant painComparison: November 14, 2020Technique: [...] MD 111:35 AMDictated By: WILEY VELÁZQUEZDate: 02/23/2021 11:[id number] 10:44:00 Test Item Value Reference Range Interpretation Comments Lipase (test code = LIPA) 86 U/L 73-393 STLMLURINALYSIS WITH [id number] 08:58:00 Test Item Value Reference Range Interpretation Comments Color (test code = Light-Yellow UCOLR) Clarity (test code = Clear UCLAR) Glucose (test code = NEGATIVE NEGATIVE N UGLUC) Bilirubin (test code NEGATIVE NEGATIVE N = UBILI) Ketones (test code = NEGATIVE NEGATIVE N UKET) Specific [place] 1.020 1.005-1.030 A (test code = USPGR) Blood (test code = NEGATIVE NEGATIVE N UBLD) PH (test code = UPH) 6.0 4.5-8.0 A Protein (test code = NEGATIVE NEGATIVE N UPROT) Urobilinogen (test 0.2 See_Comment N [Automat ed message] code = U UROB) The system [facility] generated this result transmit michael reference range [...] 41-50 0-10 A (test code = SQEP) [facility]O [id number] 08:52:00 Test Item Value Reference Range Interpretation [...] (test code = IG%) 0.3 % 0.0-0.4 [facility]M [id number] 08:52:00 Test Item Value Reference Range Interpretation [...] [facility] CBC WITH AUTO [id number] 02:37:00 Test Item Value Reference Range Interpretation [...] A value of 55 was entered by [id number] on 01/10/2021 02:3 7 Lymphocytes (test 43 % 13-42 H No previou s value code = LYMPH) was reported. A value of 43 was entered by [id number] on 01/10/2021 02:3 7 Monocytes (test 1 % 4-14 L No previous value code = MONOS) was reported. A value of 1 was entered by [id number] on 01/10/2021 02:3 7 Basophils (test 1 % 0-1 No previous value code = BASO) was reported. A value of 1 was entered by [id number] on 01/10/2021 02:3 7 Normal Morphology Normal WBC RBC Normal RBC \\T\\ N No pre vious value (test code = NRCM) and Platelet WBC was repor michael. A Morphology Morphology,Normal value of N ormal WBC RBC and WBC RBC and Platelet Platelet Morphology Morphology was entered by [id number] on 01/10/2021 02:3 7 STLMLAMYLASE, [id number] 02:14:00 Test Item Value Reference Range Interpretation Comments Amylase (test code = AMYL) 46 U/L 25-115 [id number] 02:14:00 Test Item Value Reference Range Interpretation Comments Lipase (test code = LIPA) 115 U/L 73-393 STLMLURINALYSIS WITH [id number] 02:07:00 Test Item Value Reference Range Interpretation Comments Color (test code = Light-Yellow UCOLR) Clarity (test code = Cloudy UCLAR) Glucose (test code = NEGATIVE NEGATIVE N UGLUC) Bilirubin (test code NEGATIVE NEGATIVE N = UBILI) Ketones (test code = NEGATIVE NEGATIVE N UKET) Specific [place] 1.025 1.005-1.030 A (test code = USPGR) Blood (test code = NEGATIVE NEGATIVE N UBLD) PH (test code = UPH) 6.0 4.5-8.0 A Protein (test code = NEGATIVE NEGATIVE N UPROT) Urobilinogen (test 0.2 See_Comment N [Automat ed message] code = U UROB) The system [facility] generated this result transmit michael reference range [...] SEEN A Epithelial (test code = NSE) [facility] CHEM [id number] 01:50:00 Test Item Value Reference Range Interpretation [...] (test code = CREA) 0.6 mg/dl 0.6-1.3 [facility]- CT ABD PELVIS W/[id number] 03:46:00 [facility] : 1985 Sex: F FAX: Annemarie Tesfaye [phone] [place]: St: REG Name: LAUREN BETH : 1985 Age/S: 35/F [address] Unit: [id number] Loc: [place] [address] Phys: Annemarie Tesfaye 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 at 0612 Reported and signed by: Neo Huber MD PAGE 1 Signed Report (CONTINUED) FAX: Annemarie Tesfaye [phone] [place]: St: REG----- Name: [facility]EN BETH [facility]OSPITALY[facility] Barros : 1985 Age/S: 35/F [address] Unit: [id number] Loc: [place], [place] [address]Lfiv: Annemarie Tesfaye NP Acct: [id number] Dis Date: Status: REG ER PHONE #: [phone] Exam Date: 12/13/2020 0328 FAX #: [phone] Reason: DIFFUSE ABD PAIN WORSE RLQ, HX APPY, ROSE EXAMS: CPT CODE: [id number] CT ABD PELVIS W/CONT 97408 <Continued> CC: Annemarie Tesfaye NP Technologist: PAMELA KRISHNAMURTHY; Jessi Guillory; JAIRO SANCHEZ JR Trnscrd Dt/Tm: 12/13/2020 (0346) t.SDR.MA50 Orig Print D/T: S: 12/13/2020 (0349 PAGE 2 Signed ReportCOMPREHENSIVE METABOLIC [id number] 03:32:00 Test Item Value Reference Range Interpretation [...] U/L 38-126 N (test code = ALKP) [id number] 03:32:00 Test Item Value Reference Range Interpretation Comments LIPASE (test code = LIP) 82 U/L 23-300 N BEDSIDE [id number] 03:24:00 Test Item Value Reference Range Interpretation Comments BEDSIDE CREATININE (test code = 0.60 mg/dL 0.51-1.19 N CREATBED) CBC W/AUTO [id number] 03:14:00 Test Item Value Reference Range Interpretation [...] 0.0-0.1 N UA RFLX MICR CULT IF [id number] 02:59:00 Test Item Value Reference Range Interpretation [...] OF URINE: VOIDEDSTAT LAB CBC WITH AUTO [id number] 15:12:00 Test Item Value Reference Range Interpretation [...] entered by [id number] on 12/12/2020 15:12 [facility] LAB CHEM [id number] 14:08:00 Test Item Value Reference Range Interpretation [...] code = CREA) 0.5 mg/dl 0.6-1.3 L [facility] LAB URINALYSIS WITHOUT [id number] 12:08:00 Test Item Value Reference Range Interpretation Comments Color (test code = Light-Yellow UCOLR) Clarity (test code = Cloudy UCLAR) Glucose (test code = NEGATIVE NEGATIVE N UGLUC) Bilirubin (test code NEGATIVE NEGATIVE N = UBILI) Ketones (test code = NEGATIVE NEGATIVE N UKET) Specific [place] 1.015 1.005-1.030 A (test code = USPGR) Blood (test code = NEGATIVE NEGATIVE N UBLD) PH (test code = UPH) 7.0 4.5-8.0 A Protein (test code = NEGATIVE NEGATIVE N UPROT) Urobilinogen (test 0.2 See_Comment N [Automat ed message] code = U UROB) The system [facility] generated this result transmit michael reference range [...] code = 0.4 mg/dl 0.0-1.1 IBIL) [facility]INAL[facility] WITH [id number] 08:31:00 Test Item Value Reference Range Interpretation Comments Color (test code = Light-Yellow UCOLR) Clarity (test code = Clear UCLAR) Glucose (test code = NEGATIVE NEGATIVE N UGLUC) Bilirubin (test code NEGATIVE NEGATIVE N = UBILI) Ketones (test code = NEGATIVE NEGATIVE N UKET) Specific [place] 1.020 1.005-1.030 A (test code = USPGR) Blood (test code = NEGATIVE NEGATIVE N UBLD) PH (test code = UPH) 6.5 4.5-8.0 A Protein (test code = NEGATIVE NEGATIVE N UPROT) Urobilinogen (test 0.2 See_Comment N [Automat ed message] code = U UROB) The system [facility] generated this result transmit michael reference range [...] TNTC 0-10 A (test code = SQEP) [facility] LAB CHEM [id number] 08:27:00 Test Item Value Reference Range Interpretation [...] code = CREA) 0.5 mg/dl 0.6-1.3 L [facility] CBC WITH AUTO [id number] 08:26:00 Test Item Value Reference Range Interpretation [...] code = IG%) 0.4 % 0.0-0.4 [facility]kinXR ABDOM[facility] 2 VIEWS FLAT / [id number] 08:18:50[facility]/[place])Name: LAUREN BETH : 1985 Sex: FProcedure: XR ABDOMEN 2 VIEWS FLAT / UPRIGHTOrder Date: 11/21/2020 7:43 AMOrdering Provider: REHAN COTTONClinical Indication: [id number]: Abdominal painComparison: Nov 14 2020Findings:Bowel gas pattern is non-obstructive. No pneumoperitoneum.There is moderate volume stool burden.Surgical clips in the right upper quadrant of the abdomen.Impression:Nonobstructive bowel gas pattern.This final reportwas electronically signed by Dr Silver Benitez MD :13 AMDictated By: Chante BENITEZ: 11/21/2020 08:13[facility] OF KATYCT ABDOMEN/PELVIS W/O CONTRAST 2020-11-14 14:11:31 [facility]/)Name: LAUREN BETH : 1985 Sex: FProcedure: CT ABDOMEN/PELVIS W/O CONTRASTOrder Date: 11/14/2020 1:22 PMOrdering Provider: BILLY ACOSTA .Clinical Indication: [id number]: Right flank painComparison: Renal ultrasound November 08, [...] MD 12:05 PMDictated By: FARZAD DEWITT.Date: 11/14/2020 14:05[facility] , [id number] 13:31:00 Test Item Value Reference Range Interpretation Comments (Urine) (test code = Negative PREGU) ONLY AVAILABLE 8A-12[facility] LAB CHEM [id number] 11:09:00 Test Item Value Reference Range Interpretation [...] code = CREA) 0.5 mg/dl 0.6-1.3 L [facility] LAB URINALYSIS WITHOUT [id number] 11:08:00 Test Item Value Reference Range Interpretation Comments Color (test code = Yellow Lt. Yellow A UCOLR) Clarity (test code = Clear UCLAR) Glucose (test code = Negative Negative N UGLUC) Bilirubin (test code Negative Negative N = UBILI) Ketones (test code = Negative Negative N UKET) Specific [place] 1.025 1.005-1.030 A (test code = USPGR) Blood (test code = Trace-intact Negative A UBLD) PH (test code = UPH) 6.0 4.5-8.0 A Protein (test code = Negative Negative N UPROT) Urobilinogen (test 0.2 See_Comment N [Automat ed message] code = U UROB) The system [employer] generated this result transmit michael reference range : 0.2. The refere nce range was not u sed to interpret th is result as normal/abnormal . Nitrite (test code = Negative Negative N UNITR) Leukocyte Esterase Negative Negative N (test code = ULEUK) [facility] CBC WITH AUTO [id number] 11:05:00 Test Item Value Reference Range Interpretation [...] code = IG%) 0.4 % 0.0-0.4 [facility]-OlamideEmoryLTLISSY, [id number] 08:43:00Specimen: Urine SpecimensCollected: 11/08/2020 09:59 Status: Final Last Updated: 11/09/2020 08:43 CULTURE (Final) (Final) Few Mixed Body Gabriela Isolated No Pathogens [facility]olatedUpland [facility] Health RENAL & BLADDER (KIDNEYS)2020-11-08 12:00:28[facility] ([facility]/)Name: LAUREN BETH : 1985 Sex: FProcedure: US [...] AMDictated By: GLORY BENITEZKDate: 11/08/2020 11:54[facility] OF KATYURINALYSIS WITH MICROSCOPIC 2020-11-08 10:58:00 Test Item Value Reference Range Interpretation Comments Color (test code = Yellow UCOLR) Clarity (test code = Clear UCLAR) Glucose (test code = NEGATIVE NEGATIVE N UGLUC) Bilirubin (test code = NEGATIVE NEGATIVE N UBILI) Ketones (test code = NEGATIVE NEGATIVE N UKET) Specific [place] (test 1.030 1.005-1.030 A code = USPGR) Blood (test code = NEGATIVE NEGATIVE N UBLD) PH (test code = UPH) 6.0 4.5-8.0 A Protein (test code = NEGATIVE NEGATIVE N UPROT) Urobilinogen (test code 0.2 See_Comment N [Au tomated message] = U UROB) The system [employer] generated this result transmitted ref erence range: [...] 51-74 0-10 A (test code = SQEP) [facility]-Zi, [id number] 08:13:00ER 17Specimen: Urine SpecimensCollected: 11/01/2020 01:10 Status: Final Last Updated: 11/02/2020 08:13 (1) ER 17 CULTURE (Final) (Final) Few Mixed Body Gabriela Isolated No Pathogens [facility]olatedAsc[facility]-NatachaXR ABD SERIES W/TAMMY CXR 2020-11-01 03:48:37 [facility] ([facility])Name: LAUREN BETH : 1985 Sex: FPROCEDURE [...] CDT.Dictated By: FILIPPO RAMOSDate: 11/01/2020 03:48[facility] OF KATYHEPATIC FUNCTION PANEL (LIVER)2020-11-01 02:14:00 Test Item Value [...] (test code = 0.1 mg/dl 0.0-1.1 IBIL) [address] LAB CHEM [id number] 01:57:00 Test Item Value Reference Range Interpretation [...] = CREA) 0.5 mg/dl 0.6-1.3 L ER [address] [place] [address]-fkinURINALYSIS WITH [id number] 01:56:00 Test Item Value Reference Range Interpretation Comments Color (test code = Light-Yellow UCOLR) Clarity (test code = Clear UCLAR) Glucose (test code = 50 NEGATIVE A UGLUC) Bilirubin (test code NEGATIVE NEGATIVE N = UBILI) Ketones (test code = NEGATIVE NEGATIVE N UKET) Specific [place] 1.025 1.005-1.030 A (test code = USPGR) Blood (test code = NEGATIVE NEGATIVE N UBLD) PH (test code = UPH) 6.0 4.5-8.0 A Protein (test code = TRACE NEGATIVE A UPROT) Urobilinogen (test 0.2 See_Comment N [Automat ed message] code = U UROB) The system [facility] generated this result transmit michael reference range [...] 41-50 0-10 A (test code = SQEP) [address] LAB CBC WITH AUTO [id number] 01:55:00 Test Item Value Reference Range Interpretation [...] (test code = IG%) 0.4 % 0.0-0.4 [address]HEP[address] FUNCTION PANEL (LIVER)2020-10-05 01:26:00 Test Item [...] (test code = 0.1 mg/dl 0.0-1.1 IBIL) [address]ASE2021-04-07 01:26:00 Test Item Value Reference Range Interpretation Comments Lipase (test code = LIPA) 154 U/L 73-[address] LAB CHEM [id number] 01:15:00 Test Item Value Reference Range Interpretation [...] (test code = CREA) 0.6 mg/dl 0.6-1.[address] LAB , [id number] 01:14:00 Test Item Value Reference Range Interpretation Comments (Urine) (test code = Negative PREGU) [address] LAB CBC WITH AUTO [id number] 01:13:00 Test Item Value Reference Range Interpretation [...] = IG%) 0.9 % 0.0-0.[address] [place], [place] [address]Mjnmgl-[id number] 04:21:00 Test Item Value Reference Range Interpretation Comments Lipase (test code = LIPA) 146 U/L 73-393 [facility]-LufkinHEPATIC FUNCTION PANEL (LIVER)2020-09-18 04:21:00 Test Item Value [...] code = 0.1 mg/dl 0.0-1.1 IBIL) [facility]-[place]ufkinAMYLASE, [id number] 04:21:00 Test Item Value Reference Range Interpretation Comments Amylase (test code = AMYL) 47 U/L 25-115 [facility]-fkinURINALYSIS WITH [id number] 03:06:00 Test Item Value Reference Range Interpretation Comments Color (test code = Light-Yellow UCOLR) Clarity (test code = Clear UCLAR) Glucose (test code = NEGATIVE NEGATIVE N UGLUC) Bilirubin (test code NEGATIVE NEGATIVE N = UBILI) Ketones (test code = TRACE NEGATIVE A UKET) Specific [place] 1.025 1.005-1.030 A (test code = USPGR) Blood (test code = NEGATIVE NEGATIVE N UBLD) PH (test code = UPH) 5.5 4.5-8.0 A Protein (test code = NEGATIVE NEGATIVE N UPROT) Urobilinogen (test 0.2 See_Comment N [Automat ed message] code = U UROB) The system Sap[employer] generated this result transmit michael reference range [...] SEEN A Epithelial (test code = NSE) [facility] LAB CHEM [id number] 02:51:00 Test Item Value Reference Range Interpretation [...] (test code = CREA) 0.6 mg/dl 0.6-1.3 [facility] LAB CBC WITH AUTO [id number] 02:50:00 Test Item Value Reference Range Interpretation [...] = IG%) 0.5 % 0.0-0.4 H [facility] CenterkinXR ABDOMEN 1 VIEW (KUB)2020-09-12 01:51:21 [facility]/[place])Name: LAUREN BETH : 1985 Sex: [...] CDT.Dictated By: CELESTINO ALLENDate: 09/12/2020 01:50[facility] CBC WITH AUTO [id number] 01:29:00 Test Item Value Reference Range Interpretation [...] (test code = IG%) 0.4 % 0.0-0.4 [facility] LAB CHEM [id number] 01:28:00 Test Item Value Reference Range Interpretation [...] code = CREA) 0.6 mg/dl 0.6-1.3 [facility] CenterURINALYSIS WITH [id number] 03:04:00 Test Item Value Reference Range Interpretation Comments Color (test code = Yellow UCOLR) Clarity (test code = Clear UCLAR) Glucose (test code = 100 NEGATIVE A UGLUC) Bilirubin (test code = NEGATIVE NEGATIVE N UBILI) Ketones (test code = TRACE NEGATIVE A UKET) Specific [place] (test >=1.030 1.005-1.030 A code = USPGR) Blood (test code = NEGATIVE NEGATIVE N UBLD) PH (test code = UPH) 5.5 4.5-8.0 A Protein (test code = NEGATIVE NEGATIVE N UPROT) Urobilinogen (test code 0.2 See_Comment N [Au tomated message] = U UROB) The system [employer] generated this result transmitted ref erence range: [...] code = 3+ None Seen,Trace A UBACT) [facility]-[id number] 03:01:00 Test Item Value Reference Range Interpretation [...] ( 4 - SerumAlbumin)] EGFR if >60 Barbadian (test code mL/min/1.73m\\ = EGFRAA) S\\2 EGFR if Non- >60 Estimate d Glomerular Barbadian (test code mL/min/1.73m\\ Filtrat ion Rate (eGFR) [...] and management of c hronic kidney failure. [facility] HospitalBiognf-[id number] 03:01:00 Test Item Value Reference Range Interpretation Comments Lipase (test code = LIPA) 145 U/L 73-393 [facility] LAB TEST, Serum Qualitative 2020-08-22 02:48:00 Test Item Value Reference Range Interpretation Comments (Serum) (test code = Negative PREGS) [facility] LAB CBC WITH AUTO [id number] 02:28:00 Test Item Value Reference Range Interpretation [...] code = 0.1 mg/dl 0.0-1.1 IBIL) ER [address] [place], [place] [address]Awzlql-[id number] 02:59:00 Test Item Value Reference Range Interpretation Comments Lipase (test code = LIPA) 167 U/L 73-[address] [place] [address] WITH [id number] 02:48:00 Test Item Value Reference Range Interpretation Comments Color (test code = UCOLR) Yellow Clarity (test code = UCLAR) Clear Glucose (test code = UGLUC) NEGATIVE NEGATIVE N Bilirubin (test code = UBILI) NEGATIVE NEGATIVE N Ketones (test code = UKET) NEGATIVE NEGATIVE N Specific [place] (test code = >=1.030 1.005-1.030 A USPGR) [...] code = UBACT) 4+ None Seen,Trace A [address]-[place]/PELVIS W/O [id number] 02:34:52ER 16 R/O KIDNEY STONE [facility] ([facility]/[place])Name: LAUREN BETH : [id number] Sex: FPROCEDURE INFORMATION:Exam: CT Abdomen And Pelvis [...] 2:34 AM CDT.Dictated By: HOLLIS FERRERADate: 08/06/2020 02:34[facility] 2020-08-06 02:29:00 Test Item [...] code = CREA) 0.4 mg/dl 0.6-1.[address] LAB CBC WITH AUTO [id number] 02:29:00 Test Item Value Reference Range Interpretation [...] = IG%) 0.7 % 0.0-0.4 H ER [address] [place], [place] [address]Wcxswi-[id number] 09:31:00 Test Item Value Reference Range Interpretation [...] code = 0.3 mg/dl 0.0-1.1 IBIL) [facility]-[place] HamiltonXR ABDOMEN 2 VIEWS FLAT / [id number] 09:22:50[facility] ([facility]/)Name: LAUREN BETH : [id number] Sex: FProcedure: XR ABDOMEN 2 VIEWS FLAT / UPRIGHTOrder Date: 07/19/2020 8:40 AMOrdering Provider: REHAN COTTON .Clinical Indication: [id number]: Abdominal painComparison: July 05, 2020Findings:Postoperative change consisting [...] MD :17 AMDictated By: FARZAD DEWITT.Date: 07/19/2020 09:17[facility] CHEM [id number] 09:10:00 Test Item Value Reference Range Interpretation [...] code = CREA) 0.5 mg/dl 0.6-1.3 L [facility] LAB CBC WITH AUTO [id number] 09:09:00 Test Item Value Reference Range Interpretation [...] code = IG%) 0.7 % 0.0-0.4 H [facility] LAB URINALYSIS WITHOUT [id number] 09:08:00 Test Item Value Reference Range Interpretation Comments Color (test code = UCOLR) Yellow Lt. Yellow A Clarity (test code = UCLAR) Clear Glucose (test code = UGLUC) Negative Negative N Bilirubin (test code = UBILI) Negative Negative N Ketones (test code = UKET) Negative Negative N Specific [place] (test code = USPGR) >=1.030 1.005-1.030 A Blood (test code = UBLD) Negative Negative N PH (test code = UPH) 6.0 4.5-8.0 A Protein (test code = UPROT) Negative Negative N Urobilinogen (test code = U UROB) 0.2 >0.2 N Nitrite (test code = UNITR) Negative Negative N Leukocyte Esterase (test code = Negative Negative N ULEUK) [facility]-LufkinCULTURE, [id number] 08:00:00Specimen: Urine SpecimensCollected: 07/05/2020 03:00 Status: Final Last Updated: 07/07/2020 08:00 CULTURE (Final) (Final) No Growth After 48 HoursAsc[facility]-LufkinXR ABDOMEN 1 VIEW (KUB)2020-07-05 04:07:04 [facility] ([facility]/[place])Name: LAUREN BETH : [id number] Sex: FPROCEDURE INFORMATION:Exam: XR Abdomen, 1 ViewExam [...] CDT.Dictated By: OSKAR CRANE: 07/05/2020 04:06[facility] , [id number] 03:54:00 Test Item Value Reference Range Interpretation Comments (Urine) (test code = Negative PREGU) [facility] LAB CHEM [id number] 03:53:00 Test Item Value Reference Range Interpretation [...] code = CREA) 0.5 mg/dl 0.6-1.3 L [facility] LAB CBC WITH AUTO [id number] 03:51:00 Test Item Value Reference Range Interpretation [...] code = IG%) 0.4 % 0.0-0.4 [facility]-[place]kinURINALYSIS WITH [id number] 03:33:00 Test Item Value Reference Range Interpretation Comments Color (test code = UCOLR) Yellow Clarity (test code = UCLAR) Clear Glucose (test code = UGLUC) NEGATIVE NEGATIVE N Bilirubin (test code = UBILI) Small NEGATIVE A Ketones (test code = UKET) TRACE NEGATIVE A Specific [place] (test code = USPGR) 1.020 1.005-1.030 A [...] = UBACT) Trace None Seen,Trace N [facility]-[place]kinCT ABDOMEN/PELVIS W/[id number] 16:44:35 [facility] ([facility]/[place])Name: LAUREN BETH : [id number] Sex: FProcedure: CT ABDOMEN/PELVIS W/CONTRASTOrder date: 06/07/2020 3:47 PMOrdering Provider: REHAN COTTONClinical Indication: [id number]: Left flank painComparison: 12/8/20Technique: Multiple axial helical CT images of the [...] PMDictated By: WILEY VELÁZQUEZDate: 06/07/2020 16:38[facility]URINALYSIS WITH [id number] 15:22:00 Test Item Value Reference Range Interpretation Comments Color (test code = UCOLR) Yellow Clarity (test code = UCLAR) Clear Glucose (test code = UGLUC) NEGATIVE NEGATIVE N Bilirubin (test code = UBILI) NEGATIVE NEGATIVE N Ketones (test code = UKET) NEGATIVE NEGATIVE N Specific [place] (test code = USPGR) 1.020 1.005-1.030 A [...] code = UBACT) Trace None Seen,Trace N [facility] LAB CHEM [id number] 15:10:00 Test Item Value Reference Range Interpretation [...] code = CREA) 0.4 mg/dl 0.6-1.3 L [facility] LAB CBC WITH AUTO [id number] 15:08:00 Test Item Value Reference Range Interpretation [...] = IG%) 0.5 % 0.0-0.4 H [facility]-[place]ufkinCT ABD/ PELVIS W/O CON (RENAL STONE)2020-06-07 14:56:05[facility] ([facility]/[place])Name: LAUREN BETH : [id number] Sex: FProcedure: CT ABD/ PELVIS W/O CON (RENAL STONE)Order date: 06/07/2020 2:18 PMOrdering Provider: REHAN Farrellinical Indication: [id number]: Left flank painComparison: 05/31/20TECHNIQUE: Using a helical [...] PMDictated By: WILEY VELÁZQUEZDate: 06/07/2020 14:49[facility] OF [facility]CT ABDOMEN/PELVIS W/O [id number] 12:27:07NPO 4 hours. Do not withhold meds hyst [facility] ([facility]/)Name: LAUREN BETH : [id number] Sex: FProcedure: CT ABDOMEN/PELVIS W/O CONTRASTOrder Date: 05/31/2020 10:25 AMOrdering Provider: ME ANN MARIE Guamaninical Indication: [id number]: Pain radiating to right flankComparison: March 20, [...] PMDictated By: FARZAD DEWITTDate: 05/31/2020 12:20[facility] OF [id number] 11:48:00 Test Item Value Reference Range Interpretation Comments Lipase (test code = LIPA) 116 U/L 73-393 [facility] LAB URINALYSIS WITHOUT [id number] 10:59:00 Test Item Value Reference Range Interpretation Comments Color (test code = UCOLR) Light yellow Lt. Yellow A Clarity (test code = UCLAR) Clear Glucose (test code = UGLUC) Negative Negative N Bilirubin (test code = UBILI) Negative Negative N Ketones (test code = UKET) Negative Negative N Specific [place] (test code = 1.025 1.005-1.030 A USPGR) Blood (test code = UBLD) Negative Negative N PH (test code = UPH) 6.0 4.5-8.0 A Protein (test code = UPROT) Negative Negative N Urobilinogen (test code = U 0.2 >0.2 N UROB) Nitrite (test code = UNITR) Negative Negative N Leukocyte Esterase (test code = Negative Negative N ULEUK) [facility] LAB CBC WITH AUTO [id number] 10:58:00 Test Item Value Reference Range Interpretation [...] code = IG%) 0.5 % 0.0-0.4 H [facility] LAB CHEM [id number] 10:53:00 Test Item Value Reference Range Interpretation [...] = CREA) 0.5 mg/dl 0.6-1.3 L [facility]-[place]kinXR ABDOMEN 1 VIEW (KUB)2020-04-25 21:02:16 [facility] ([facility]/)Name: LAUREN BETH : [id number] Sex: FPROCEDURE INFORMATION:Exam: XR Abdomen, 1 ViewExam [...] PM CDT. Dictated By: TEJAS RODRIGUEZDate: 04/25/2020 21:02[facility]URINEL[facility] CENTERIS WITH [id number] 18:57:00 Test Item Value Reference Range Interpretation Comments Color (test code = UCOLR) Yellow Lt. Yellow A Clarity (test code = UCLAR) Clear Glucose (test code = UGLUC) Negative Negative N Bilirubin (test code = UBILI) Negative Negative N Ketones (test code = UKET) Negative Negative N Specific [place] (test code = 1.020 1.005-1.030 A USPGR) [...] code = UBACT) 4+ None Seen,Trace A [facility] LAB CBC WITH AUTO [id number] 18:55:00 Test Item Value Reference Range Interpretation [...] of Platel et clumping was entered by [id number] on 04/25/2020 18:5 5 [facility] LAB CHEM [id number] 18:17:00 Test Item Value Reference Range Interpretation [...] code = CREA) 0.4 mg/dl 0.6-1.3 L [facility], ANAEROBE [id number] 15:20:00FIRST DRAW = 1 aerobic and 1 anerobic CultureSpecimen: BloodCollected: 03/20/2020 18:30 Status: Final Last Updated: 03/26/2020 15:19 (1) FIRST DRAW = 1 aerobic and 1 anerobic Culture CULTURE (Final) (Final) No Growth After 5 DaysWin[facility], [id number] 15:20:00FIRST DRAW = 1 aerobic and 1 anerobic CultureSpecimen: BloodCollected: 03/20/2020 18:30 Status: Final Last Updated: 03/26/2020 15:19 (1) FIRST DRAW = 1 aerobic and 1 anerobic Culture CULTURE (Final) (Final) No Growth After 5 DaysAsc[facility]-LufkinCT ABDOMEN/PELVIS W/[id number] 21:46:442 weeks s/p adhesolysis. Vomiting/pain/fever. Please do CT with PO and IV contrastProcedures: CT ABDOMEN/PELVIS W/CONTRASTExam Date: 03/20/2020 6:04 PMOrdering Physician: REHAN Farrellinical Indication: [id number]: Abdominal painComparison: CT abdomen/pelvis, 02/25/20TECHNIQUE: Spiral multislice [...] 9:40 PMDictated By: ELMER PHAMDate:03/20/2020 21:40[facility] OF [facility]HEPATIC FUNCTION PANEL (LIVER)2020-03-20 19:24:00 Test Item Value [...] code = 0.3 mg/dl 0.0-1.1 IBIL) [facility] HospitalJbuzof-[id number] 19:24:00 Test Item Value Reference Range Interpretation Comments Lipase (test code = LIPA) 69 U/L 73-393 L [facility] HospitalLhwarp-[id number] 19:24:00 Test Item Value Reference Range Interpretation Comments Magnesium (test code = MG) 2.0 mg/dl 1.6-2.6 [facility] LAB CHEM [id number] 18:43:00 Test Item Value Reference Range Interpretation [...] code = CREA) 0.5 mg/dl 0.6-1.3 L [facility] LAB LACTIC [id number] 18:42:00 Test Item Value Reference Range Interpretation Comments LACTATE (test code = 2.50 mmol/l 0.90-1.70 R&RB sy rene hassan rn LAC) @1842 [facility] LAB CBC WITH AUTO [id number] 18:41:00 Test Item Value Reference Range Interpretation [...] (test code = IG%) 0.4 % 0.0-0.4 [facility]P PERC PLMNT MIDLINE NO PORT > [...] secured to the skin in the usual fashion.[employer] images were recorded and stored in the [facility]doc[facility]. The patient tolerated the procedure well and there were noimmediate complications.Impression:1. Successful upper extremity vascular access.This final report was electronically signed by Dr Farzad Dewitt MD 03/15/20201:14 PMDictated By: FARZAD DEWITTDate: 03/15/2020 13:14MMCHI [facility] CENTERCORONAVIRUS 2019 (IN HOUSE)2020-03-13 21:03:00 Test Item Value Reference Range Interpretation Comments FT (test code Negative Negative N The BioGX SARS -CoV-2 = COVID) (qualifier value) Reagents f or BD MAX System, the Bio Fire Covid-19, and t he Cepheid Covid-1 9 is for in vitro us e under FDA Emergency U se Authorization o nly. Indeterminate r esults recommend recol lection of specimen. [facility]-LufkinXR ABD SERIES W/PA [id number] 17:33:07 Procedure: XR ABD SERIES W/PA CXROrder [...] PMDictated By: GLORY BENITEZKDate: 03/13/2020 17:26[facility] CBC WITH AUTO [id number] 17:23:00 Test Item Value Reference Range Interpretation [...] entered by [id number] on 03/13/2020 17:23 [facility] MilwaukeeRfoshu-[id number] 17:23:00 Test Item Value Reference Range Interpretation Comments Lipase (test code = LIPA) 61 U/L 73-393 L [facility] InstitutestefanieHEPATIC FUNCTION PANEL (LIVER)2020-03-13 17:23:00 Test Item Value [...] code = 0.4 mg/dl 0.0-1.1 IBIL) [facility]kinURINALYSIS WITH [id number] 16:54:00 Test Item Value Reference Range Interpretation Comments Color (test code = UCOLR) Yellow Lt. Yellow A Clarity (test code = UCLAR) Clear Glucose (test code = UGLUC) Negative Negative N Bilirubin (test code = UBILI) Negative Negative N Ketones (test code = UKET) Negative Negative N Specific [place] (test code = >=1.030 1.005-1.030 A USPGR) [...] code = UBACT) 4+ None Seen,Trace A [facility] InstitutekinSMAGRUD[facility] CHEM [id number] 16:37:00 Test Item Value Reference Range Interpretation [...] = CREA) 0.4 mg/dl 0.6-1.3 L [facility]-LufkinSP PERC PLMNT MIDLINE NO PORT > [...] PMDictated By: GLORY BENITEZKDate: 03/02/2020 12:17[facility]YCORONAVIRUS 2019 (IN HOUSE)2020-03-01 18:48:00 Test Item Value Reference Range Interpretation Comments FT (test code Negative Negative N The BioGX SARS -CoV-2 = COVID) (qualifier value) Reagents f or BD MAX System, the Bio Fire Covid-19, and t he Cepheid Covid-1 9 is for in vitro us e under FDA Emergency U se Authorization o nly. Indeterminate r esults recommend recol lection of specimen. [facility]-LufkinPT AND [id number] 11:51:00 Test Item Value Reference Range Interpretation Comments Protime (test code 9.8 seconds 9.5-12.1 = PT) INR (test code = 0.9 0.9-1.1 INR results are intended INR) ONLY to monitor Oral Anticoagulant t herapy in stablized patie nts. The INR Therapeutic Range is 2.0 - 3.0 Patie nts with a mechanical he art, the INR Range is 2. 5 - 3.5 [facility] InstitutekinPTT2020-09-01 11:51:00 Test Item Value Reference Range Interpretation Comments aPTT (test code = PTT) 27.4 seconds 23.9-30.7 [facility]CBC (HEMOGRAM ONLY)2020-03-01 11:44:00 Test Item Value Reference [...] WILL BE NOTED ON THE RE PORT. [facility] CenterCULTURE, [id number] 08:08:00Specimen: Urine RandomCollected: 02/25/2020 11:27 Status: Final Last Updated: 02/27/2020 08:08 CULTURE (Final) (Final) No Growth After 48 HoursAsc[facility] [id number] 05:38:00 Test Item Value Reference Range Interpretation [...] 0.5-1.3 code = CREA) EGFR if >60 Barbadian (test code mL/min/1.73m\\ = EGFRAA) S\\2 EGFR if Non- >60 Estimate d Glomerular Barbadian (test code mL/min/1.73m\\ Filtrat ion Rate (eGFR) [...] and management of c hronic kidney failure. [facility] CenterTS (Ultra Sensitive)2020-02-26 05:38:00 Test Item Value Reference Range Interpretation Comments TSH (test code = TSH) 0.04 mIU/L 0.35-3.74 L [facility] CenterCB WITH AUTO [id number] 05:18:00 Test Item Value Reference Range Interpretation [...] 0.5 % 0.0-0.4 H IG%) CBC AUTO diffAscension [facility] Hospital-LufkinCORONAVIRUS 2018 (IN HOUSE)2020-02-25 14:06:00 Test Item [...] r esults recommend recol lection of specimen. [facility]-fkinURINALYSIS WITH [id number] 12:56:00 Test Item Value Reference Range Interpretation Comments Color (test code = UCOLR) Yellow Lt. Yellow A Clarity (test code = UCLAR) Slightly Cloudy Glucose (test code = UGLUC) Negative Negative N Bilirubin (test code = UBILI) Negative Negative N Ketones (test code = UKET) Negative Negative N Specific [place] (test code = >=1.030 1.005-1.030 A USPGR) [...] = UBACT) Trace None Seen,Trace N [facility] HospitalZsbuci-[id number] 12:52:00 Test Item Value Reference Range Interpretation [...] code = 0.3 mg/dl 0.0-1.1 IBIL) [facility]-[place]kinCT ABDOMEN/PELVIS W/[id number] 12:42:41NPO 4 hours. Do not withhold medsProcedure: [...] 02/25/202012:36 PMDictated By: WILEY VELÁZQUEZDate: 02/25/2020 12:36[facility] CHEM 2020-02-25 12:07:00 Test [...] code = CREA) 0.5 mg/dl 0.6-1.3 L [facility] CBC WITH AUTO [id number] 12:05:00 Test Item Value Reference Range Interpretation [...] (test code = IG%) 0.3 % 0.0-0.4 [facility] CBC WITH AUTO [id number] 03:15:00 Test Item Value Reference Range Interpretation [...] code = IG%) 0.6 % 0.0-0.4 H [facility] LAB CHEM [id number] 02:55:00 Test Item Value Reference Range Interpretation [...] code = CREA) 0.5 mg/dl 0.6-1.3 L [facility] Institutekin ABDOMEN 1 VIEW (KUB)2020-02-25 02:45:30 PROCEDURE INFORMATION:Exam: [...] By: JORGE LUIS WHITEDate: 02/25/2020 02:45[facility] , URINE 2020-02-25 01:12:00 Test Item Value Reference Range Interpretation Comments (Urine) (test code = Negative PREGU) [facility] CenterkinSTAT LAB URINALYSIS WITHOUT [id number] 01:11:00 Test Item Value Reference Range Interpretation Comments Color (test code = UCOLR) Yellow Lt. Yellow A Clarity (test code = UCLAR) Clear Glucose (test code = UGLUC) Negative Negative N Bilirubin (test code = UBILI) Negative Negative N Ketones (test code = UKET) Negative Negative N Specific [place] (test code = USPGR) >=1.030 1.005-1.030 A Blood (test code = UBLD) Negative Negative N PH (test code = UPH) 5.5 4.5-8.0 A Protein (test code = UPROT) Negative Negative N Urobilinogen (test code = U UROB) 0.2 >0.2 N Nitrite (test code = UNITR) Negative Negative N Leukocyte Esterase (test code = Negative Negative N ULEUK) [facility]kinXR ABDOMEN 1 VIEW (KUB)2020-02-10 06:46:05 Procedure: XR ABDOMEN 1 VIEW (KUB)Order date: 02/10/2020 4:01 AMOrdering Provider: JUAN Galiciainical Indication: Abdominal painComparison: NoneFindings:There is no small or large bowel distention.There is no pneumoperitoneum.There are no suspicious calcifications.There is no skeletal abnormality.Impression:1. Negative single view abdomen.This final report was electronically signed by Dr Wiley Velázquez MD 02/10/20206:39 AMDictated By: WILEY VELÁZQUEZDate: 02/10/2020 06:39[facility] [employer] [facility] RENAL & BLADDER (KIDNEYS)2020-02-10 [...] AM CDT.Dictated By: JORGE LUIS WHITEDate: 02/10/2020 05:31[facility]ENTERURINALYSIS WITH [id number] 05:10:00 Test Item Value Reference Range Interpretation Comments Color (test code = UCOLR) Yellow Lt. Yellow A Clarity (test code = UCLAR) Clear Glucose (test code = UGLUC) >=1000 Negative A Bilirubin (test code = UBILI) Negative Negative N Ketones (test code = UKET) Negative Negative N Specific [place] (test code = 1.015 1.005-1.030 A USPGR) [...] UBACT) None Seen None Seen,Trace N [facility] CenterLIPASE2020-08-12 04:42:00 Test Item Value Reference [...] (test code = 0.2 mg/dl 0.0-1.1 IBIL) [facility] LAB CHEM [id number] 04:27:00 Test Item Value Reference Range Interpretation [...] (test code = CREA) 0.6 mg/dl 0.6-1.3 [facility] , [id number] 04:24:00 Test Item Value Reference Range Interpretation Comments (Urine) (test code = Negative PREGU) [facility] CBC WITH AUTO [id number] 04:22:00 Test Item Value Reference Range Interpretation [...] = IG%) 0.5 % 0.0-0.4 H [facility] L SPINE W/O [id number] 12:46:24 Procedure: CT L SPINE W/O CONTRASTOrder date: 01/25/2020 11:46 AMOrdering Provider: DONALD Healyinical Indication: [id number]: Low back painComparison: NoneTechnique: Using a multislice [...] MD 01/25/202012:39 PMDictated By: WILEY VELÁZQUEZDate: 01/25/2020 12:39[facility] OF KATYHEPATIC FUNCTION PANEL (LIVER)2019-12-09 05:49:00 Test Item Value [...] (test code = 0.3 mg/dl 0.0-1.1 IBIL) [address]-[id number] 05:49:00 Test Item Value Reference Range Interpretation Comments Lipase (test code = LIPA) 105 U/L 73-[address] LAB CHEM [id number] 05:06:00 Test Item Value Reference Range Interpretation [...] code = CREA) 0.5 mg/dl 0.6-1.[address] LAB CBC WITH AUTO [id number] 05:04:00 Test Item Value Reference Range Interpretation [...] (test code = IG%) 0.4 % 0.0-0.[address]-[id number] 02:23:00 Test Item Value Reference Range Interpretation [...] ( 4 - SerumAlbumin)] EGFR if >60 Barb[place] (test code mL/min/1.73m\\ = EGFRAA) S\\2 EGFR if Non- >60 Estimate d Glomerular Barb[place] (test code mL/min/1.73m\\ Filtrat ion Rate (eGFR) [...] and management of c hronic kidney failure. [facility]INAL[facility] WITH [id number] 02:11:00 Test Item Value Reference Range Interpretation Comments Color (test code = UCOLR) Yellow Lt. Yellow A Clarity (test code = UCLAR) Clear Glucose (test code = UGLUC) Negative Negative N Bilirubin (test code = UBILI) Negative Negative N Ketones (test code = UKET) Trace Negative A Specific [place] (test code = USPGR) >=1.030 1.005-1.030 A [...] code = UBACT) 2+ None Seen,Trace A [facility] LAB CBC WITH AUTO [id number] 02:03:00 Test Item Value Reference Range Interpretation [...] (test code = IG%) 0.4 % 0.0-0.4 [facility]PELVIS W/[id number] 22:43:00NPO 4 hours. Do not withhold meds [...] PM CDT.Dictated By: JOSUÉ MCGHEEDate: 10/07/2019 22:42[facility] 2019-10-07 22:05:00 Test Item Value Reference [...] 0.5-1.3 code = CREA) EGFR if >60 Barb[place] (test code mL/min/1.73m\\ = EGFRAA) S\\2 EGFR if Non- >60 Estimate d Glomerular [place] (test code mL/min/1.73m\\ Filtrat ion Rate (eGFR) [...] and management of c hronic kidney failure. [facility]-[place]kinAMYLASE, [id number] 22:05:00 Test Item Value Reference Range Interpretation Comments Amylase (test code = AMYL) 43 U/L 25-115 [facility] HospitalYcvspw-[id number] 22:05:00 Test Item Value Reference Range Interpretation Comments Lipase (test code = LIPA) 95 U/L 73-393 [facility]URINAL[facility] WITH [id number] 21:49:00 Test Item Value Reference Range Interpretation Comments Color (test code = UCOLR) Yellow Lt. Yellow A Clarity (test code = UCLAR) Clear Glucose (test code = UGLUC) Negative Negative N Bilirubin (test code = UBILI) Negative Negative N Ketones (test code = UKET) 15 Negative A Specific [place] (test code = USPGR) >=1.030 1.005-1.030 A [...] code = UBACT) 3+ None Seen,Trace A [facility] LAB CBC WITH AUTO [id number] 21:45:00 Test Item Value Reference Range Interpretation [...] (test code = IG%) 0.4 % 0.0-0.4 [facility] LAB , [id number] 21:36:00 Test Item Value Reference Range Interpretation Comments (Urine) (test code = Negative PREGU) [facility]-fkinCT ABDOMEN/PELVIS W/O [id number] 03:56:36 PROCEDURE INFORMATION:Exam: CT Abdomen And Pelvis [...] AM CDT.Dictated By: AMY ORDOÑEZDate: 09/20/2019 03:56 [id number] 02:07:00 Test Item Value Reference Range Interpretation [...] ( 4 - SerumAlbumin)] EGFR if >60 [place] (test code mL/min/1.73m\\ = EGFRAA) S\\2 EGFR if Non- >60 Estimate d Glomerular [place] (test code mL/min/1.73m\\ Filtrat ion Rate (eGFR) [...] and management of c hronic kidney failure. [facility]-[place]kinXR ABDOMEN 2 VIEWS FLAT / [id number] 02:01:15PROCEDURE INFORMATION:Exam: XR Abdomen, 2 ViewsExam date [...] 2:01 AM CDT.Dictated By: AMY ORDOÑEZDate: 09/20/2019 02:01[facility]ENTERURINALYSIS WITH MICROSCOPIC 2019-09-20 01:56:00 Test Item Value Reference Range Interpretation Comments Color (test code = UCOLR) Yellow Lt. Yellow A Clarity (test code = UCLAR) Clear Glucose (test code = UGLUC) >=1000 Negative A Bilirubin (test code = UBILI) Negative Negative N Ketones (test code = UKET) Trace Negative A Specific [place] (test code = USPGR) >=1.030 1.005-1.030 A [...] code = UBACT) 2+ None Seen,Trace A [facility] LAB CBC WITH AUTO [id number] 01:38:00 Test Item Value Reference Range Interpretation [...] = IG%) 0.5 % 0.0-0.4 H [facility] ABDOMEN/PELVIS W/[id number] 04:23:30 PROCEDURE INFORMATION:Exam: CT Abdomen And Pelvis [...] 20194:23 AM CDT.Dictated By: SETH MEDINADate: 08/17/2019 04:23MMCHI [address] MED[facility] [id number] 03:34:00 Test Item Value Reference Range Interpretation Comments Lipase (test code = LIPA) 67 U/L 73-393 L [facility]-JkvdrhIRO0546-23-55 03:34:00 Test Item Value Reference Range Interpretation [...] ( 4 - SerumAlbumin)] EGFR if >60 Barb[place] (test code mL/min/1.73m\\ = EGFRAA) S\\2 EGFR if Non- >60 Estimate d Glomerular Barb[place] (test code mL/min/1.73m\\ Filtrat ion Rate (eGFR) [...] and management of c hronic kidney failure. [facility] LAB CBC WITH AUTO [id number] 03:19:00 Test Item Value Reference Range Interpretation [...] = IG%) 0.7 % 0.0-0.4 H [facility] CenterkinURINALYSIS WITH [id number] 03:10:00 Test Item Value Reference Range Interpretation Comments Color (test code = UCOLR) YELLOW Clarity (test code = UCLAR) CLEAR Glucose (test code = UGLUC) NEGATIVE NEGATIVE N Bilirubin (test code = UBILI) NEGATIVE NEGATIVE N Ketones (test code = UKET) NEGATIVE NEGATIVE N Specific [place] (test code = 1.025 1.005-1.030 A USPGR) [...] code = UBACT) 1+ None Seen,Trace A [facility] , [id number] 03:03:00 Test Item Value Reference Range Interpretation Comments (Urine) (test code = Negative PREGU) ONLY AVAILABLE 8A-12MNA[facility] CenterkinE [id number] 20:37:00 Test Item Value Reference Range Interpretation [...] (test code = CREA) 0.6 mg/dl 0.6-1.2 [facility]-LufkinED2 [id number] 20:28:00 Test Item Value Reference Range Interpretation [...] code = MPV) 7.1 fL 8.0-11.0 A [facility] InstitutekinCULTURE, [id number] 08:44:50cxk2Alyqozwb: Urine SpecimensCollected: 07/12/2019 15:00 Status: Final Last Updated: 2019 08:44 (1) err7 Culture Result (Final) (Final) Moderate Mixed Body Gabriela Isolated No Pathogens Isolated No Further Workup PerformedAscension [facility] Hospital-LufkinFL LIMITED [id number] 17:53:41Procedures: FL LIMITED IVPExam Date: 07/12/2019 3:21 PMOrdering Physician: REHAN Farrellinical Indication: [id number]: Flank painComparison: CT abdomen/pelvis, 05/17/19Findings: Frontal radiographs [...] PMDictated By: ELMER PHAMDate: 07/12/2019 17:47[facility]ITALWGBGPRNKQRB4676-98-26 15:56:00 Test Item Value Reference Range Interpretation Comments Lipase (test code = LIPA) 97 U/L 73-393 [address]HEPATIC FUNCTION PANEL (LIVER)2019-07-12 15:56:00 Test Item [...] (test code = 0.2 mg/dl 0.0-1.1 IBIL) [address]-[place]kinURINALYSIS WITH [id number] 15:51:00 Test Item Value Reference Range Interpretation Comments Color (test code = UCOLR) YELLOW Clarity (test code = UCLAR) CLEAR Glucose (test code = UGLUC) NEGATIVE NEGATIVE N Bilirubin (test code = UBILI) NEGATIVE NEGATIVE N Ketones (test code = UKET) NEGATIVE NEGATIVE N Specific [place] (test code = 1.020 1.005-1.030 A USPGR) [...] code = UBACT) 4+ None Seen,Trace A [address] LAB CHEM [id number] 15:09:00 Test Item Value Reference Range Interpretation [...] (test code = CREA) 0.6 mg/dl 0.6-1.[address] LAB CBC WITH AUTO [id number] 15:08:00 Test Item Value Reference Range Interpretation [...] (test code = IG%) 0.4 % 0.0-0.[address]-[place]kinCT ABDOMEN/PELVIS W/[id number] 16:33:46NPO 4 hours. Do not withhold medsProcedures: CT ABDOMEN/PELVIS W/CONTRASTExam Date: 05/17/2019 1:31 PMOrdering Physician: MERLE LYNNEClinical Indication: [id number]: Abdominal painComparison: CT abdomen/pelvis, 04/09/19TECHNIQUE: Spiral multislice [...] MD05/17/2019 4:27 PMDictated By: ELMER PHAMDate: 05/17/2019 16:27[facility] [id number] 16:20:00 Test Item Value Reference Range Interpretation Comments Lipase (test code = LIPA) 70 U/L 73-393 L [facility] LAB CHEM [id number] 15:24:00 Test Item Value Reference Range Interpretation [...] code = CREA) 0.5 mg/dl 0.6-1.3 L [facility] LAB LACTIC [id number] 15:23:00 Test Item Value Reference Range Interpretation Comments LACTATE (test code = LAC) 1.39 mmol/l 0.90-1.70 [facility] LAB CBC WITH AUTO [id number] 15:21:00 Test Item Value Reference Range Interpretation [...] = IG%) 0.5 % 0.0-0.4 H [facility] CenterkinURINALYSIS WITH [id number] 15:08:00 Test Item Value Reference Range Interpretation Comments Color (test code = UCOLR) YELLOW Clarity (test code = UCLAR) CLEAR Glucose (test code = UGLUC) NEGATIVE NEGATIVE N Bilirubin (test code = UBILI) NEGATIVE NEGATIVE N Ketones (test code = UKET) NEGATIVE NEGATIVE N Specific [place] (test code = 1.025 1.005-1.030 A USPGR) [...] = UBACT) 2+ None Seen,Trace A [facility] rehabilitationCT ANGIO HEAD W/WO [id number] 16:28:5720 g Cathlon Above the Antecubital or higher requiredProcedure: CT ANGIO HEAD W/WO CONTRASTOrder Date: 05/12/2019 3:30 PMOrdering Provider: REHAN VANG SA NDERSClinical Indication: [id number]: HeadacheComparison: NoneTechnique: Using a helical scanner, sequential axial imaging of the brain wasobtained before and after the administration of the contrast medium. At anindependent workstation, 3-D reconstructions of the [place] wereobtained.This examwas performed according to [...] PMDictated By: FARZAD DEWITTDate: 05/12/2019 16:22[facility] OF KATYCT ABDOMEN/PELVIS W/[id number] 14:36:05NPO 4 hours. Do not withhold medsProcedure: [...] MD 04/09/20192:29 PMDictated By: Maggie BENITEZte: 04/09/2019 14:29[facility] WITH AUTO [id number] 09:02:00 Test Item Value Reference Range Interpretation [...] code = 0.5 % 0.0-0.4 H IG%) [facility] WITH AUTO [id number] 09:14:00 Test Item Value Reference Range Interpretation [...] (test code = 0.4 % 0.0-0.4 IG%) [facility]-CrplosKCE7889-09-32 09:12:00 Test Item Value Reference Range Interpretation [...] 0.5-1.3 code = CREA) EGFR if >60 Barb[place] (test code mL/min/1.73m\\ = EGFRAA) S\\2 EGFR if Non- >60 Estimate d Glomerular [place] (test code mL/min/1.73m\\ Filtrat ion Rate (eGFR) [...] and management of c hronic kidney failure. [facility]-LufkinSP PERC PLMNT MIDLINE NO PORT > [...] PMDictated By: WILEY VELÁZQUEZDate: 04/07/2019 16:05[facility] [place]CT ABDOMEN/PELVIS W/[id number] 22:50:40PROCEDURE INFORMATION:Exam: CT Abdomen and pelvis with [...] CDT.Dictated By: ELMER PHAMDate: 04/04/2019 22:50[facility] OF [id number] 21:22:00 Test Item Value Reference Range Interpretation [...] (test code = 0.3 mg/dl 0.0-1.1 IBIL) [facility] LAB CHEM [id number] 21:07:00 Test Item Value Reference Range Interpretation [...] (test code = CREA) 0.6 mg/dl 0.6-1.3 [facility] LAB URINALYSIS WITHOUT [id number] 21:05:00 Test Item Value Reference Range Interpretation Comments Color (test code = UCOLR) Yellow Lt. Yellow A Clarity (test code = UCLAR) Slightly Cloudy Glucose (test code = UGLUC) 100 Negative A Bilirubin (test code = UBILI) Negative Negative N Ketones (test code = UKET) Negative Negative N Specific [place] (test code = >=1.030 1.005-1.030 A USPGR) Blood (test code = UBLD) Negative Negative N PH (test code = UPH) 5.5 4.5-8.0 A Protein (test code = UPROT) Negative Negative N Urobilinogen (test code = U 0.2 >0.2 N UROB) Nitrite (test code = UNITR) Negative Negative N Leukocyte Esterase (test code Negative Negative N = ULEUK) [facility] LAB CBC WITH AUTO [id number] 21:04:00 Test Item Value Reference Range Interpretation [...] code = IG%) 0.5 % 0.0-0.4 [facility] , [id number] 21:04:00 Test Item Value Reference Range Interpretation Comments (Urine) (test code = Negative PREGU) ONLY AVAILABLE 8A-12[facility]-LufkinED2 [id number] 16:05:00 Test Item Value Reference Range Interpretation Comments Sodium (test code = CANCELED mmol/l The r eleased value NA) 141 was cancele d by [id number] on 04/04/2019 16:0 5 Potassium (test code CANCELED mmol/l The released value = K) 3.9 was cancele d by [id number] on 04/04/2019 16:0 5 CO2 (test code = CANCELED mmol/l The rele ased value CO2) 23 was canceled by [id number] on 04/04/2019 16:0 5 Chloride (test code CANCELED mmol/l The r eleased value = CL) 108 was cancele d by [id number] on 04/04/2019 16:0 5 Glucose (test code = CANCELED mg/dl The r eleased value GLU) 96 was canceled by [id number] on 04/04/2019 16:0 5 Calcium (test code = CANCELED mg/dl The r eleased value CALC) 8.8 was cancele d by [id number] on 04/04/2019 16:0 5 BUN (test code = CANCELED mg/dl The relea sed value BUN) 11 was canceled by [id number] on 04/04/2019 16:0 5 Creatinine (test CANCELED mg/dl code = CREA) [facility]-fkinHISTOLOGY [id number] 11:08:[address] [place] [address] 39317Zrndj: [phone] VKUH #: [id number] MedicalDirector: Seth Valdez M.D.Surgical Pathology Consultation ReportPatient Name: LAUREN BETH Case #: [id number] [facility]. Rec. #:[id number] [id number] Date: 03/21/2019 : 1985(Age:33) Received: 03/23/2019 [...] greatest dimension. The cystsarefilled with clearserous fluid. [employer] sections of the ovaryandpossible fallopian tube are submitted in cassettes A1-A8. /03/23/2019 Seth Valdez MD, Board Certified in Anatomic Pathology Microscopic DescriptionMicroscopic examination of the right ovary reveals fibrovascularadhesionsalong the surface of the ovary as well as along the accompanyingfallopiantube. The ovarian parenchyma contains follicular cysts, benign serouscyst,as well as numerous corpus albicans. No areas of endometriosis areseen. Billing Fee Code(s): A; 44972TmpjlzhbAsc[facility]-[place]- [place] TRANSVAGINAL W/YBYHYA6724-00-23 16:45:00 Patient Name: ADELIA BETH Unit No: [id number] EXAMS: CPT CODE: [id number] US TRANSVAGINAL W/PELVIS 02613 CLINICAL HISTORY: Right lower quadrant pain. Status [...] flow is identified in theright ovary. at 2798 Reported and signedby: Mario Guidry MD CC: Hilaria Calderón MD Technologist: Dipesh Miranda RDMS, RVT Probe: [id number] Trnscrbd D/ (4107) tMARTIN Orig Print D/T: S: 03/10/2019 (7863) [facility] NAME: KELL BETHIE Radiology Department PHYS: SUE. - Hilaria Calderón [address] : 1985 AGE: 33 SEX: F [place], [place] [address] LOC: ALONDRA PHONE #: [phone] EXAM DATE: 03/10/2019 STATUS: REG ER FAX #: [phone] RAD NO: Page 1 Signed Report Patient Name: ADELIA BETH Unit No: [id number] EXAMS: CPT CODE: [id number] US TRANSVAGINAL W/PELVIS 08119 <Continued> [facility] NAME: BETH,ADELIA Radiology Department PHYS: SUE. - Hilaria Calderón [address] : 1985 AGE: 33 SEX: F [place], [place] [address] LOC: ALONDRA PHONE #: [phone] EXAM DATE: 03/10/2019 STATUS: ROBERT ER FAX #: [phone] RAD NO: Page 2 Signed Report- US TRANSVAGINAL W/[id number] 16:45:00 Patient Name: LAUREN BETH Unit No: [id number] EXAMS: CPT CODE: [id number] US TRANSVAGINAL W/PELVIS 74699 CLINICAL HISTORY: Right lower quadrant pain. Status [...] MD Technologist: Dipesh Miranda RDMS, T Probe: [id number] Trnscrbd D/ (6525) Ro Orig Print D/T: S: 03/10/2019 (7158) [facility] NAME: LAUREN BETH Radiology Department PHYS: Hilaria Maldonado [address] : 1985 AGE: 33 SEX: F [place], [place] [address] LOC: ALONDRA PHONE #:[phone] EXAM DATE: 03/10/2019 STATUS: [facility] ER FAX #: [phone] RAD NO: [id number] Page 1 Signed Report Patient Name: LAUREN BETH Unit No: [id number] EXAMS: CPT CODE: [id number] US TRANSVAGINAL W/PELVIS 76362 (Continued) [facility] NAME: LAUREN BETH Radiology Department PHYS: - Hilaria Calderón [address] : 1985 AGE: 33 SEX: F [place], [place] [address]TIUA NO: [id number] LOC: ALONDRA PHONE #: [phone] EXAM DATE: 03/10/2019 STATUS: [facility] ER FAX #: [phone] RAD NO: [id number] Page 2 Signed Report- US PELVIS [id number] 16:45:00 Patient Name: ADELIA BETH Unit No: [id number] EXAMS: CPT CODE: [id number] US PELVIS COMPLETE 40940 CLINICAL HISTORY: Right lower quadrant pain. Status [...] is identified in the right ovary. at 2083 Reported and signed by:Mario Guidry MD CC: Hilaria Calderón MD Technologist: Dipehs Miranda RDMS, RVT Probe: Trnscrbd D/ (2396) Ro Orig Print D/T: S: 03/10/2019 (1648) [facility] NAME: ADELIA BETH Radiology Department PHYS: Hilaria Maldonado [address] : 1985 AGE: 33 SEX: F [place], [place] [address] LOC: ALONDRA PHONE #: [phone] EXAM DATE: STATUS: REG ER FAX #: [phone] RAD NO: Page 1 Signed Report Patient Name: ADELIA BETH Unit No: [id number] EXAMS: CPT CODE: [id number] US PELVIS COMPLETE 16714 <Continued> [facility] NAME: ADELIA BETH Radiology Department PHYS: Hilaria Maldonado [address] : 1985 AGE: 33 SEX: Luis Fernando [place], [place] [address] LOC: ALONDRA PHONE #: [phone] EXAM DATE: 03/10/2019 STATUS: REG ER FAX #: [phone] RAD NO: Page 2 Signed Report- US PELVIS [id number] 16:45:00 Patient Name: LAUREN BETH Unit No: [id number] EXAMS: CPT CODE: [id number] US PELVIS COMPLETE 85994 CLINICAL HISTORY: Right lower quadrant pain. Status [...] Dipesh Miranda RDMS, RVT Probe: Trnscrbd D/ (0375) t.SDR.YOS Orig Print D/T: S: 03/10/2019 (7528) [facility] NAME: LAUREN BETH Radiology Department PHYS: [facility] - Conchis Calderónondra [address] : 1985 AGE: 33 SEX: F [place] [address] LOC: ALONDRA PHONE #: [phone] EXAM DATE: 03/10/2019 STATUS: DEP ER FAX #: [phone] RAD NO: [id number] Page 1 Signed Report Patient Name: LAUREN BETH Unit No: [id number] EXAMS: CPT CODE: [id number] US PELVIS COMPLETE 54825 (Continued) [facility] NAME: LAUREN BETH Radiology Department PHYS: SUEEmma - Hilaria Calderón [address] : 1985 AGE: 33 SEX: F [place], [place] [address] LOC: DayanaraERS PHONE #: [phone] EXAM DATE: 03/10/2019 STATUS: DEP ER FAX #: [phone] RAD NO: [id number] Page 2 Signed ReportCBC W/AUTO DIFF 2019-03-10 [...] = PLTMR) UA RFLX MICR CULT IF [id number] 16:07:00 Test Item Value Reference Range Interpretation [...] A Indication for culture: Suprapubic PainUR HCG [id number] 16:07:00 Test Item Value Reference Range Interpretation [...] culture: Suprapubic PainUA RFLX MICR CULT IF [id number] 16:04:00 Test Item Value Reference Range Interpretation [...] EPIU) Indication for culture: Suprapubic PainUR HCG [id number] 16:04:00 Test Item Value Reference Range Interpretation [...] culture: Suprapubic PainUA RFLX MICR CULT IF [id number] 15:55:00 Test Item Value Reference Range Interpretation [...] RARE-FEW Indication for culture: Suprapubic PainUR HCG [id number] 15:55:00 Test Item Value Reference Range Interpretation [...] and tested. Indication for culture: Suprapubic PainED2 [id number] 01:18:00 Test Item Value Reference Range Interpretation [...] code = MPV) 6.9 fL 8.0-11.0 A [facility]ufkinED2 URINE [id number] 00:55:00 Test Item Value Reference Range Interpretation Comments Color (test code = UCOLR) Yellow Lt. Yellow A Clarity (test code = UCLAR) Clear Glucose (test code = UGLUC) NEGATIVE NEGATIVE N Bilirubin (test code = UBILI) NEGATIVE NEGATIVE N Ketones (test code = UKET) NEGATIVE NEGATIVE N Specific [place] (test code = USPGR) 1.030 1.005-1.030 A Blood (test code = UBLD) NEGATIVE NEGATIVE N PH (test code = UPH) 6.0 4.5-8.0 A Protein (test code = UPROT) Trace NEGATIVE A Urobilinogen (test code = U UROB) 0.2 >0.2 N Nitrite (test code = UNITR) NEGATIVE NEGATIVE N Leukocyte Esterase (test code = NEGATIVE NEGATIVE N ULEUK) [facility]kinED[facility] , [id number] 00:54:00 Test Item Value Reference Range Interpretation Comments (Urine) (test code = Negative PREGU) [facility] HospitalFozcoj-[id number] 13:07:00 Test Item Value Reference Range Interpretation Comments Lipase (test code = LIPA) 106 U/L 73-393 [facility] ABDOMEN/PELVIS W/[id number] 12:24:12Procedures: ED2 CT ABDOMEN/PELVIS W/CONTRASTExam Date: 02/07/2019 10:11 AMOrdering Physician: WYATT Downsinical Indication: [id number]: Epigastric painComparison: CT abdomen/pelvis, 01/27/19TECHNIQUE: Spiral multislice [...] MD02/07/2019 12:17 PMDictated By: ELMER PHAMDate: 02/07/2019 12:[address]2019-08-10 10:48:00 Test Item Value Reference Range [...] (test code = TP) 7.6 gm/dl 6.4-8.1 [place] [address] URINE [id number] 10:45:00 Test Item Value Reference Range Interpretation Comments Color (test code = UCOLR) Yellow Lt. Yellow A Clarity (test code = UCLAR) Sl Cloudy Glucose (test code = UGLUC) NEGATIVE NEGATIVE N Bilirubin (test code = UBILI) NEGATIVE NEGATIVE N Ketones (test code = UKET) NEGATIVE NEGATIVE N Specific [place] (test code = 1.025 1.005-1.030 A USPGR) Blood (test code = UBLD) NEGATIVE NEGATIVE N PH (test code = UPH) 5.5 4.5-8.0 A Protein (test code = UPROT) NEGATIVE NEGATIVE N Urobilinogen (test code = U UROB) 0.2 >0.2 N Nitrite (test code = UNITR) NEGATIVE NEGATIVE N Leukocyte Esterase (test code = NEGATIVE NEGATIVE N ULEUK) [place] [address] , [id number] 10:45:00 Test Item Value Reference Range Interpretation Comments (Urine) (test code = Negative PREGU) [place] [address] [id number] 10:44:00 Test Item Value Reference Range Interpretation [...] code = MPV) 6.8 fL 8.0-11.0 A [facility]CT [facility]EN/PELVIS W/[id number] 12:29:19s/p hysterectomy; rlq painProcedure: CT ABDOMEN/PELVIS W/CONTRASTOrder Date: 01/27/2019 10:57 AMOrdering Provider: DR LEXUS CASTREJON ACOSTAClinical Indication: [id number]: Abdominal painComparison: September 30, 2018TECHNIQUE:The abdo men [...] MD 01/27/201912:23 PMDictated By: GLORY BENITEZKDate: 01/27/2019 12:23[facility] OF KATYURINALYSIS WITH [id number] 12:10:00 Test Item Value Reference Range Interpretation Comments Color (test code = UCOLR) YELLOW Clarity (test code = UCLAR) CLEAR Glucose (test code = UGLUC) NEGATIVE NEGATIVE N Bilirubin (test code = UBILI) NEGATIVE NEGATIVE N Ketones (test code = UKET) NEGATIVE NEGATIVE N Specific [place] (test code = USPGR) <=1.005 1.005-1.030 A [...] = UBACT) Trace None Seen,Trace N [facility] HospitalKknitx-[id number] 11:49:00 Test Item Value Reference Range Interpretation Comments Lipase (test code = LIPA) 91 U/L 73-393 [facility]-fkinAMYLASE, [id number] 11:49:00 Test Item Value Reference Range Interpretation Comments Amylase (test code = AMYL) 45 U/L 25-115 [facility]-fkinSTAT LAB CHEM [id number] 11:25:00 Test Item Value Reference Range Interpretation [...] code = CREA) 0.5 mg/dl 0.6-1.3 L [facility] LAB CBC WITH AUTO [id number] 11:23:00 Test Item Value Reference Range Interpretation [...] code = IG%) 0.6 % 0.0-0.4 H [facility] PELVIS [id number] 07:55:25h/o complex right ovarian cystsProcedure: Pelvic ultrasound.CLINICAL [...] 12/07/20187:49 AMDictated By:WILEY VELÁZQUEZDate: 12/07/2018 07:49[facility] OF [id number] 03:11:00 Test Item Value Reference Range Interpretation [...] (test code = 0.1 mg/dl 0.0-1.1 IBIL) [facility] LAB CHEM [id number] 02:41:00 Test Item Value Reference Range Interpretation [...] code = CREA) 0.5 mg/dl 0.6-1.3 L [facility] LAB CBC WITH AUTO [id number] 02:39:00 Test Item Value Reference Range Interpretation [...] % 0.0-0.4 H [facility] [id number] 02:37:00 Test Item Value Reference Range Interpretation Comments Color (test code = UCOLR) YELLOW Clarity (test code = UCLAR) CLEAR Glucose (test code = UGLUC) 500 NEGATIVE A Bilirubin (test code = UBILI) NEGATIVE NEGATIVE N Ketones (test code = UKET) TRACE NEGATIVE A Specific [place] (test code = USPGR) >=1.030 1.005-1.030 A [...] = UBACT) 2+ None Seen,Trace A [facility]kinCULT[facility], [id number] 07:39:00CULTURE RIGHT ABDOMEN WOUND CARE DEPTSpecimen: AbdomenCollected: [...] Sc (+/-) Negative - ICR (+/-) Negative -[facility]XR CHEST AP/PA 1 [id number] 05:15:17Procedure: XR CHEST AP/PA 1 VIEWOrder Date: 09/30/2018 8:28 PMOrdering Provider: DIMAS Haskinsinical Indication: [id number]: Acute chest painComparison: May 13, 2017Findings:Cardiac size is magnified by technique.Pulmonary vasculature is normal.Mediastinal contour is normal.Aortic contour is normal.There is no consolidation or effusion.There is no evidence of active tuberculosis.There is no mass or pneumothorax.There is no skeletal abnormality.Impression: Negative AP portable chest x-ray.This final report was electronically signed by Dr Farzad Dewitt MD 10/01/20185:08 AMDictated By: FARZAD DEWITTDate: 10/01/2018 05:08 [facility]/O [id number] 00:42:26NPO 4 hours. Do not withhold medsEXAM:CT [...] CDT.Dictated By: REHAN AZARDate: 10/01/2018 00:42[facility] OF [id number] 21:37:00 Test Item Value Reference Range Interpretation [...] (test code = 0.5 mg/dl 0.0-1.1 IBIL) [facility] LAB CHEM [id number] 21:10:00 Test Item Value Reference Range Interpretation [...] code = CREA) 0.5 mg/dl 0.6-1.3 L [facility] LAB CBC WITH AUTO [id number] 21:09:00 Test Item Value Reference Range Interpretation [...] code = IG%) 0.3 % 0.0-0.4 [facility] CenterKARLA W/WO TUBE,[id number] 12:44:00 RUN DATE: 09/04/18 [facility] PAGE 1 RUN TIME: 1454 Specimen Inquiry RUN USER: INTERFACE --PATIENT: LAUREN BETH [facility] #: [id number] LOC: [place] #: [id number] AGE/SX: 33/F ROOM: [facility] RE09/02/18REG DR: Elmer Flores : 87 BED: A DIS: 09/03/18 STATUS: DIS [place]y TLOC: SPEC #: [id number] RECD: 09/02/18 STATUS: KWAME RADHA #: [id number] MELISSA: 09/02/18- SUBM DR: Elmer Flores III ENTERED: 09/03/18 SP TYPE: MUSA PELAYO DR: ORDERED: LEVEL IV CODES: [id number] - OVARY, NOS PROCEDURES: LEVEL IV (Incomplete) TISSUES: OVARY, NOS - RIGHT OVARIAN CYST CLINICAL HISTORY 33 year old, acute pelvic pain (wpd) FINAL DIAGNOSIS Right ovarian cyst, excision: - benign simple cyst of ovary Tissue code 1 CPT code(s): 26333 [facility] 09/04/18 GROSS DESCRIPTION ANATOMIC SOURCE OF [...] with multiple yellow-orange, centrally hemorrhagic corpora lutea. [employer] sections are submitted as A and B. telma/bere 09/03/18 @ 1343 Signed Amaris Wharton MD 09/04/18 1244 END OF REPORT CBC W/AUTO [id number] 03:10:00 Test Item Value Reference Range Interpretation [...] NORMAL NORMAL code = PLTMR) CHEMISTRY 7 [id number] 14:15:00 Test Item Value Reference Range Interpretation [...] CA) 9.2 mg/dL 8.4-10.2 N CBC W/AUTO [id number] 13:42:00 Test Item Value Reference Range Interpretation [...] NORMAL NORMAL code = PLTMR) US INTRAVAGINAL [id number] 12:35:09Procedure: Pelvic ultrasound.CLINICAL INDICATION: Pelvic pain. Status [...] MD 09/01/201812:28 PMDictated By: WILEY VELÁZQUEZDate: 09/01/2018 12:28[facility] CBC WITH AUTO [id number] 11:31:00 Test Item Value Reference Range Interpretation [...] RS88 71 on 09/01/2018 11:31 ONLY AVAILABLE [address] [place] [address]-LukinCT ABDOMEN/PELVIS W/O [id number] 11:11:01MLP CProcedure: CT ABDOMEN/PELVIS W/O CONTRASTOrder Date: 09/01/2018 9:28 AMOrdering Provider: CHIN Guilleninical Indication: [id number]: Abdominal pain. Left lower quadrant painComparison: 12/24/2017TECHNIQUE:CT [...] 09/01/201811:04 AMDictatedBy: GLORY BENITEZKDate: 09/01/2018 11:04[facility] CHEM [id number] 10:26:00 Test Item Value Reference Range Interpretation [...] CREA) 0.4 mg/dl 0.6-1.3 L ONLY AVAILABLE [address] [place], [place] [address]kinSTA LAB URINALYSIS WITHOUT [id number] 09:59:00 Test Item Value Reference Range Interpretation Comments Color (test code = UCOLR) Yellow Lt. Yellow A Clarity (test code = UCLAR) Clear Glucose (test code = UGLUC) NEGATIVE Negative A Bilirubin (test code = UBILI) NEGATIVE Negative A Ketones (test code = UKET) NEGATIVE Negative A Specific [place] (test code = USPGR) 1.015 1.005-1.030 A Blood (test code = UBLD) NEGATIVE Negative A PH (test code = UPH) 7.0 4.5-8.0 A Protein (test code = UPROT) NEGATIVE Negative A Urobilinogen (test code = U UROB) 0.2 >0.2 N Nitrite (test code = UNITR) NEGATIVE Negative A Leukocyte Esterase (test code = NEGATIVE Negative A ULEUK) ONLY AVAILABLE [address] [place] [address]-[place]ufkinUS INTRAVAGINAL PELVIS 2018-05-13 13:26:23Procedure: Pelvic ultrasound.CLINICAL INDICATION: [...] PMDictated By: WILEY VELÁZQUEZDate: 05/13/2018 13:20[facility] CBC WITH AUTO [id number] 12:22:00 Test Item Value Reference Range Interpretation [...] (test code = 0.2 % 0.0-0.4 IG%) [facility] LAB CBC WITH AUTO [id number] 11:54:00 Test Item Value Reference Range Interpretation [...] 0.5 % 0.0-0.4 H IG%) ONLY AVAILABLE [address] [place] [address] LAB URINALYSIS WITHOUT [id number] 11:25:00 Test Item Value Reference Range Interpretation Comments Color (test code = UCOLR) Yellow Lt. Yellow A Clarity (test code = UCLAR) Clear Glucose (test code = UGLUC) NEGATIVE Negative A Bilirubin (test code = UBILI) NEGATIVE Negative A Ketones (test code = UKET) NEGATIVE Negative A Specific [place] (test code = USPGR) 1.020 1.005-1.030 A Blood (test code = UBLD) NEGATIVE Negative A PH (test code = UPH) 7.0 4.5-8.0 A Protein (test code = UPROT) NEGATIVE Negative A Urobilinogen (test code = U UROB) 0.2 >0.2 N Nitrite (test code = UNITR) NEGATIVE Negative A Leukocyte Esterase (test code = NEGATIVE Negative A ULEUK) ONLY AVAILABLE [address] [place] [address] LAB , URINE 2018-05-13 11:25:00 Test Item Value Reference Range Interpretation Comments (Urine) (test code = Negative PREGU) ONLY AVAILABLE [address] [place] [address] LAB CHEM [id number] 11:23:00 Test Item Value Reference Range Interpretation [...] CREA) 0.5 mg/dl 0.6-1.3 L ONLY AVAILABLE 8A-12[facility] INTRAVAGINAL PELVIS 2017-12-24 12:50:53Procedure: Pelvic ultrasound.CLINICAL [...] PMDictated By: WILEY VELÁZQUEZDate: 12/24/2017 12:50[facility] KATYURINALYSIS WITH [id number] 10:22:00 Test Item Value Reference Range Interpretation Comments Color (test code = UCOLR) Yellow Clarity (test code = UCLAR) Clear Glucose (test code = UGLUC) NEGATIVE NEGATIVE N Bilirubin (test code = UBILI) NEGATIVE NEGATIVE N Ketones (test code = UKET) NEGATIVE NEGATIVE N Specific [place] (test code = USPGR) 1.025 1.005-1.030 A [...] None Seen,Trace N [facility] CenterLIPASE, [id number] 10:05:00 Test Item Value Reference Range Interpretation Comments Lipase (test code = LIPA) 40 U/L 8-223 [facility]-[id number] 10:05:00 Test Item Value Reference Range Interpretation [...] ( 4 - SerumAlbumin)] EGFR if >60 [place] (test code mL/min/1.73m\\ = EGFRAA) S\\2 EGFR if Non- >60 Estimate d Glomerular [place] (test code mL/min/1.73m\\ Filtrat ion Rate (eGFR) [...] and management of c hronic kidney failure. [facility]kinCT ABD/ PELVIS W/O CON (RENAL STONE)2017-12-24 [...] MD 12/24/20179:32 AMDictated By: WILEY VELÁZQUEZDate: 12/24/2017 09:38[facility] WITH AUTO DIFF 2017-12-24 09:26:00 Test [...] = 0.6 % 0.0-0.4 H IG%) AUTO [facility]kinCT [facility]BD/ PELVIS W/O CON (RENAL [...] on 3:19 AMCDT.Dictated By: MARVIN DOBBSDate: 06/21/2017 03:20[facility] OF KATYURINALYSIS WITH [id number] 03:20:00 Test Item Value Reference Range Interpretation Comments Color (test code = UCOLR) YELLOW Clarity (test code = UCLAR) CLEAR Glucose (test code = UGLUC) NEGATIVE NEGATIVE N Bilirubin (test code = UBILI) NEGATIVE NEGATIVE N Ketones (test code = UKET) NEGATIVE NEGATIVE N Specific [place] (test code = 1.020 1.005-1.030 A USPGR) [...] UBACT) None Seen None Seen,Trace N er [address] [place] [address]-[id number] 03:07:00 Test Item Value Reference Range Interpretation [...] ( 4 - SerumAlbumin)] EGFR if >60 [place] (test code mL/min/1.73m\\ = EGFRAA) S\\2 EGFR if Non- >60 Estimate d Glomerular [place] (test code mL/min/1.73m\\ Filtrat ion Rate (eGFR) [...] and management of c hronic kidney failure. [address]kinLIPASE, [id number] 03:07:00 Test Item Value Reference Range Interpretation Comments Lipase (test code = LIPA) 61 U/L 8-223 [address] WITH [address]O [id number] 03:05:00 Test Item Value Reference Range Interpretation [...] code = 0.4 % 0.0-0.4 IG%) er [address] [place] [address]-LufkinXR CHEST 2 PA [id number] 19:56:04 Procedure: XR CHEST 2 PA LATERALExam date: 05/13/2017 3:53 PMOrdering Provider: DR ASA BLOOMClinical Indication: fatigue, Chest painComparison: March 15, 2016Findings:Cardiomediastinal silhouette is within normal limits.The lungs are clear.No pleural effusion or pneumothorax. Osseous structures are nonacute.No evidence of active tuberculosis.Impression:No acute cardiopulmonary process.This final report was electronically signed by Dr Wiley Velázquez MD 05/13/20177:49 PMDictated By: WILEY VELÁZQUEZDate: 05/13/2017 19:55[facility] OF [id number] 16:53:00 Test Item Value Reference Range Interpretation [...] ( 4 - SerumAlbumin)] EGFR if >60 [place] (test code mL/min/1.73m\\ = EGFRAA) S\\2 EGFR if Non- >60 Estimate d Glomerular [place] (test code mL/min/1.73m\\ Filtrat ion Rate (eGFR) [...] and management of c hronic kidney failure. [facility]2017-05-13 16:32:00 Test Item Value [...] WILL BE NOTED ON THE RE PORT. [facility]-fkinURINALYSIS WITH [id number] 18:25:00 Test Item Value Reference Range Interpretation Comments Color (test code = UCOLR) YELLOW Clarity (test code = UCLAR) CLEAR Glucose (test code = UGLUC) NEGATIVE NEGATIVE N Bilirubin (test code = UBILI) NEGATIVE NEGATIVE N Ketones (test code = UKET) NEGATIVE NEGATIVE N Specific [place] (test code = 1.025 1.005-1.030 A USPGR) [...] UR MISC) None Seen None Seen N [facility] CenterfkinHEPATIC FUNCTION PANEL (LIVER)2016-10-09 18:21:00 Test Item Value [...] code = 0.1 mg/dl 0.0-1.1 IBIL) [facility]-[id number] 18:21:00 Test Item Value Reference Range Interpretation [...] mg/dl 8.4-10.2 = CALC) EGFR if >60 [place] (test code mL/min/1.73m\\ = EGFRAA) S\\2 EGFR if Non- >60 Estimate d Glomerular [place] (test code mL/min/1.73m\\ Filtrat ion Rate (eGFR) [...] and management of c hronic kidney failure. [facility] WITH AUTO [id number] 18:04:00 Test Item Value Reference Range Interpretation [...] Auto (test code = 0 NRBC_AUTO) AUTO [facility]
[2022-09-03 10:17] LABS: Absolute Lymphocytes (CBC) 1.7 K/uL (0.7-4.9); Hematocrit 36.1 % (36.0-45.0); Lymphocytes % 27.7 % (15.3-44.8); MCV 87.6 fL (80-100); MPV 6.7 fL (7.6-11.3); RBC Red Blood Cell Count 4.12 M/uL (3.86-4.86)
[2022-09-03] MEDS ORDERED: NA CHLORIDE 0.9% 250 ML ONE (10:18)
[2022-09-03] MEDS ORDERED: KETAMINE HCL 500 MG/5 ML VIAL ONE (10:18)
[2022-09-03] MEDS ORDERED: FAMOTIDINE 20 MG/2 ML VIAL IV ONE (10:18)
[2022-09-03] MEDS ORDERED: NA CHLORIDE 0.9% 1,000 ML ONE (10:19)
[2022-09-03 10:48] LABS: Albumin 3.1 g/dL (3.4-5.0); Bilirubin Total 0.2 mg/dL (0.2-1.0); Potassium 3.9 mmol/L (3.5-5.1); Protein, Total 6.5 g/dL (6.4-8.2)
[2022-09-03] MEDS ORDERED: PROMETHAZINE INJ 25 MG/ML AMP ONE (11:08)
[2022-09-03] MEDS ORDERED: FENTANYL CITR 100 MCG/2 ML ONE (11:24)
--- NOTE | 2022-09-03 11:45 | ER ---
Nurse's Notes [facility] Name: Hong Pace Age: 37 yrs Sex: Female : 1985 Arrival Date: 09/03/2022 Time: 08:45 Bed 19 Private MD: Diagnosis: Abdominal pain, Generalized;Endometriosis, unspecified Presentation: 09/03 09:11 Chief complaint: Patient states: lower abd pain that began today at 0630, reports aa5 nausea and vomiting. Denies diarrhea. Onset of symptoms was September 03, 2022. 09:11 Acuity: [place] 3 aa5 09:11 Coronavirus screen: vomiting. Ebola Screen: Patient denies travel to an Ebola-affected [facility] area in the 21 days before illness onset. Initial Sepsis Screen: Does the patient meet any 2 criteria? HR > 90 bpm. Does the patient have a suspected source of infection? No. Patient's initial sepsis screen is negative. Risk Assessment: Do you want to hurt yourself or someone else? Patient reports no desire to harm self or others. 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 - Social history:: Smoking status: Patient reports the use of cigarette tobacco products, 3 cigarettes a day . Screenin:15 [facility] ED Fall Risk Assessment (Adult) History of falling in the last 3 months, mb9 including since admission No falls in past 3 months (0 pts) Confusion or Disorientation No (0 pts) Intoxicated or Sedated No (0 pts) Impaired Gait No (0 pts) Mobility Assist Device Used No (0 pt) Altered Elimination No (0 pt) Score/Fall Risk Level 0 - 2 = Low Risk Oriented to surroundings, Maintained a safe environment, Educated pt \T\ family on fall prevention, incl call for assistance when getting out of bed. Abuse screen: Denies threats or abuse. Nutritional screening: No deficits noted. Tuberculosis screening: No symptoms or risk factors identified. Assessment: 10:23 General: Appears uncomfortable, Behavior is anxious. Pain: Complains of pain in abdomen mb9 Pain does not radiate. Pain currently is 10 out of 10 on a pain scale. Quality of pain is described as sharp, shooting, stabbing, Pain began 1 day ago. Is continuous, Aggravated by repositioning. Neuro: Level of Consciousness is awake, alert, obeys commands, Oriented to person, place, time, situation, Appropriate for age. Cardiovascular: Rhythm is regular. Respiratory: Airway is patent Respiratory effort is even, unlabored, Respiratory pattern is regular, symmetrical. GI: Abdomen is round non-distended, Pt is actively vomiting clear fluid, Bowel sounds present X 4 quads. Abd is soft Abdomen is tender to palpation in right upper quadrant and right lower quadrant. : Urine is clear. Derm: Skin is pink, warm \T\ dry. Musculoskeletal: Range of motion: intact in all extremities. 11:49 Reassessment: Patient and/or family updated on plan of care and expected duration. Pain mb9 level reassessed. Patient is alert, oriented x 3, equal unlabored respirations, skin warm/dry/pink. Patient states feeling better. Patient states symptoms have improved. Vital Signs: 09:11 BP 138 / 82; Pulse 101; Resp 19 S; Temp 98.3(TE); Pulse Ox 100% on R/A; Weight 104.33 aa5 kg (R); Height 5 ft. 4 in. (162.56 cm) (R); 10:25 BP 126 / 89; Pulse 89; Resp 18; Pulse Ox 100% ; mb9 11:48 BP 140 / 90; Pulse 67; Resp 16; Pulse Ox 100% ; mb9 09:11 Body Mass Index 39.48 (104.33 kg, 162.56 cm) aa5 ED Course: 08:45 Patient arrived in ED. rg4 09:11 Arm band placed on. aa5 09:12 Triage completed. aa5 09:13 Rosalino Tucker DO is Attending Physician. ms3 09:15 Placed in gown. Bed in low position. Call light in reach. Side rails up X 1. Client mb9 placed on continuous cardiac and pulse oximetry monitoring. NIBP monitoring applied. 09:43 Rufina Bruner, RN is Primary Nurse. mb9 10:22 Inserted saline lock: 24 gauge in right ,using aseptic technique. pinky. mb9 10:23 CBC with Diff Sent. mb9 10:23 CMP Sent. mb9 10:23 Lipase Sent. mb9 10:58 No provider procedures requiring assistance completed. mb9 11:49 IV discontinued, intact, bleeding controlled, No redness/swelling at site. Pressure mb9 dressing applied. Administered Medications: 10:22 Drug: NS 0.9% 1000 ml Route: IV; Rate: 1 bolus; Site: right hand; mb9 11:56 Follow up: Response: No adverse reaction; IV Status: Completed infusion mb9 10:22 Drug: Ketamine 0.2 mg/kg Route: IVP; Site: right hand; mb9 10:58 Follow up: Response: No adverse reaction mb9 10:23 Drug: Pepcid (famotidine) 20 mg Route: IVP; Site: right hand; mb9 11:01 Follow up: Response: No adverse reaction mb9 10:59 Drug: Phenergan (promethazine) 25 mg Route: IM; Site: right gluteus; mb9 11:47 Follow up: Response: No adverse reaction mb9 11:26 Drug: fentaNYL (PF) 50 mcg Route: IVP; Site: right hand; mb9 11:47 Follow up: Response: No adverse reaction mb9 Medication: 10:58 VIS not applicable for this client. mb9 Outcome: 11:44 Discharge ordered by . ms3 11:55 Discharged to home ambulatory. mb9 11:55 Condition: stable 11:55 Discharge instructions given to patient, Instructed on discharge instructions, follow up and referral plans. Demonstrated understanding of instructions, follow-up care. 11:55 Patient left the ED. mb9 Signatures: Edilma Farris, RN RN [email or web address] Tiffanie Moreno4 Rosalino Tucker DO DO ms3 Rufina Bruner, RN RN mb9
--- NOTE | 2022-09-03 11:45 | EDPHYS ---
Physician Documentation [facility] Name: Hong Pace Age: 37 yrs Sex: Female : 1985 Arrival Date: 09/03/2022 Time: 08:45 Bed 19 Private MD: ED Physician Rosalino Tucker HPI: 09/03 11:39 This 37 yrs old Female presents to ER via Ambulatory with complaints of Abdominal Pain. ms3 11:39 37-year-old female with past medical history of endometriosis, melanoma, thyroid ms3 disease presents for abdominal pain that has been ongoing for years. Patient states her pain is a 9/10 described as being sharp. Patient endorses nausea and vomiting. Patient denies fevers chills. Patient denies alleviating or inciting factors. Patient states she sees pain management in [place]. Patient called our office on they were not in. Patient states she last took a [place] at 5 AM. 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 - Social history:: Smoking status: Patient reports the use of cigarette tobacco products, 3 cigarettes a day . ROS: 11:39 Constitutional: Negative for fever, and chills. Neck: Negative for injury, pain, and ms3 swelling, Cardiovascular: Negative for chest pain, and palpitations. Respiratory: Negative for shortness of breath, cough, wheezing, and pleuritic chest pain. 11:39 Abdomen/GI: Positive for abdominal pain. 11:39 All other systems are negative. Exam: 11:39 Constitutional: This is a well developed, well nourished patient who is awake, alert, ms3 and in no acute distress. Head/Face: Normocephalic, atraumatic. Neck: Trachea midline, no cervical lymphadenopathy. Supple, full range of motion without nuchal rigidity, or vertebral point tenderness. No Meningismus. Chest/axilla: Normal chest wall appearance and motion. Nontender with no deformity. Cardiovascular: Regular rate and rhythm with a normal S1 and S2. No gallops, murmurs, or rubs. Normal PMI, no JVD. No pulse deficits. Respiratory: Lungs have equal breath sounds bilaterally, clear to auscultation and percussion. No rales, rhonchi or wheezes noted. No increased work of breathing, no retractions or nasal flaring. 11:39 Abdomen/GI: Inspection: abdomen appears normal, Bowel sounds: normal, Palpation: moderate abdominal tenderness, in all quadrants. Vital Signs: 09:11 BP 138 / 82; Pulse 101; Resp 19 S; Temp 98.3(TE); Pulse Ox 100% on R/A; Weight 104.33 aa5 kg (R); Height 5 ft. 4 in. (162.56 cm) (R); 10:25 BP 126 / 89; Pulse 89; Resp 18; Pulse Ox 100% ; mb9 11:48 BP 140 / 90; Pulse 67; Resp 16; Pulse Ox 100% ; mb9 09:11 Body Mass Index 39.48 (104.33 kg, 162.56 cm) aa5 MDM: 09:24 Patient medically screened. ms3 11:39 Differential diagnosis: non-specific abd pain, Endometriosis vs Anema. Data reviewed: ms3 vital signs, nurses notes, lab test result(s), and as a result, I will discharge patient. I considered the following discharge prescriptions or medication management in the emergency department Medications were administered in the Emergency Department. See MAR. Care significantly affected by the following Social Determinants of Health: Poor access to healthcare and/or lack of insurance. Counseling: I had a detailed discussion with the patient and/or guardian regarding: the historical points, exam findings, and any diagnostic results supporting the discharge/admit diagnosis, lab results, the need for outpatient follow up, to return to the emergency department if symptoms worsen or persist or if there are any questions or concerns that arise at home. ED course: Labs reassuring, patient states the symptoms are typical of her endometriosis pain. 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 All questions were answered. Return precautions discussed include worsening symptoms, or any other concerns. On reevaluation patient is improved, no apparent distress, nontoxic, ambulatory in emergency department, speaking full sentences. 09/03 09:27 Order name: CBC with Diff ms3 09/03 09:27 Order name: CMP ms3 09/03 09:27 Order name: Lipase ms3 09/03 09:27 Order name: IV Saline Lock; Complete Time: 10:23 ms3 09/03 09:27 Order name: Labs collected and sent; Complete Time: 10:23 ms3 09/03 10:17 Order name: CBC with Automated Diff; Complete Time: 10:58 EDMS 09/03 10:49 Order name: Comprehensive Metabolic Panel; Complete Time: 10:58 EDMS 09/03 10:49 Order name: Lipase; Complete Time: 10:58 EDMS Administered Medications: 10:22 Drug: NS 0.9% 1000 ml Route: IV; Rate: 1 bolus; Site: right hand; mb9 11:56 Follow up: Response: No adverse reaction; IV Status: Completed infusion mb9 10:22 Drug: Ketamine 0.2 mg/kg Route: IVP; Site: right hand; mb9 10:58 Follow up: Response: No adverse reaction mb9 10:23 Drug: Pepcid (famotidine) 20 mg Route: IVP; Site: right hand; mb9 11:01 Follow up: Response: No adverse reaction mb9 10:59 Drug: Phenergan (promethazine) 25 mg Route: IM; Site: right gluteus; mb9 11:47 Follow up: Response: No adverse reaction mb9 11:26 Drug: fentaNYL (PF) 50 mcg Route: IVP; Site: right hand; mb9 11:47 Follow up: Response: No adverse reaction mb9 Disposition Summary: 09/03/22 11:44 Discharge Ordered Location: Home ms3 Condition: Stable ms3 Diagnosis - Abdominal pain, Generalized ms3 - Endometriosis, unspecified ms3 Followup: ms3 - With: Private Physician - When: 2 - 3 days - Reason: Recheck today's complaints Discharge Instructions: - Discharge Summary Sheet ms3 - Abdominal Pain, Adult ms3 - Endometriosis ms3 Forms: - Medication Reconciliation Form ms3 - Thank You Letter ms3 - Antibiotic Education ms3 - Prescription Opioid Use ms3 Signatures: Dispatcher [employer] EDUARDO Farris Edilma, RN RN aa5 Rosalino Tucker DO DO ms3 Rufina Bruner, RN RN mb9
[2022-09-03 12:20] VITALS: O2SAT 100
[2022-09-03 12:22] VITALS: BP 140/90
[2022-09-03 12:28] VITALS: TEMP 97.3
== END 2022-09-03 11:55 | disposition home or self-care (01) ==
LOC: ER 08:44
DX: R10.84 Generalized abdominal pain (principal); N80.9 Endometriosis, unspecified
CPT/HCPCS: 36415; 80053; 83690; 85025; 96361; 96372; 96374; 96375; 99283; J2550; J3010; J7030; J7050

== ENCOUNTER 2022-11-29 12:07 | Emergency (ER) | payer SELFPAY ==
--- OUTSIDE RECORDS SUMMARY | 2022-11-29 12:16 | XMS REPORT | Clinical Summary ---
:1985 Author Organization [facility] MD Bah [facility] Center Address [address] [place] [address] Care Team Providers Name Role Phone Keila [...] melanoma of other part of trunk 09/03/2018 Immunizations Name Administration Dates Next Due Influenza [...] OVARIAN CYST SURGERY 08/29/2018 - Right 09/28/2018 ID EXCISION MAL LESION 09/23/2018 Abdomen/Right Procedure : EXCISION OF TRUNK/ARM/LEG 0.6-1.0 CM MALIGNA NT LESION OF TRUNK, right epi gastric; Surgeon: Nicolasa Valentine MD; Location: [facility] OR; Service: SURG ON C - MELANOMA Medical History Medical History Date Comments Malignant melanoma of other part of 09/03/2018 trunk Renal stone 2006 multiple over the pa st years Uterine leiomyoma 2006 I have had a hystere ctomy Polycystic ovarian syndrome 2006 I still have my right ovary and get cyst often on it. 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 Depressive disorder 2004 Anxiety 2004 Family History Medical History Relation Name Comments [...] file Obstetrics History Last Filed Vital Signs Not on file Plan of Treatment Health Maintenance Due Date Last Done Comments COVID-19 Vaccination (#1) 01/11/1987 Results Not on fileafter 11/29/2021 Advance Directives Code Status Date Activated Date Inactivated Comments Full Code 10/04/2018 8:21 PM 10/08/2018 5:55 PM Code Status Date Activated Date Inactivated Comments Full Code 09/23/2018 1:48 PM 09/23/2018 6:55 PM Care Teams Housekeeping Supervisor Relationship Specialty Start Date End Date Keila Valentine MD PCP - General Surgical Oncology 08/26/[address] [place] [id number] Nba, Navi H, CATERPILLAR TRACTOR OPERATOR PCP - External Primary Family Practice 09/08/18 1702 Jake Lewis Care Provider YOLANDA ROSA [id number]
--- OUTSIDE RECORDS SUMMARY | 2022-11-29 12:31 | XMS REPORT | Continuity of Care Document ---
:1985 Author Organization [facility] t Address [address] [place] [address] [place] [id number] Care Team Providers Name Role Phone Keila Valentine MD Primary Care Physician Josué Arango Attending Clinician Unavailable SUZANNE LOPEZ Attending Clinician Unavailable Suzanne Lopez DO Attending Clinician VALENTIN BOX Attending Clinician Unavailable Isauro BARNARD, Valentin Bullard Attending Clinician MONTSERRAT ACOSTA Attending Clinician Unavailable Montserrat Osuna Attending Clinician Hernandez Attending Clinician Unavailable MAGDALENE LUCIA Attending Clinician Unavailable Khari BARNARD, Magdalene Attending Clinician Unknown, Attending Attending Clinician Unavailable RIDGE PAGAN Attending Clinician Unavailable Ridge Pagan MD Attending Clinician Truman Quintero Attending Clinician Unavailable TRICE HARRIS Attending Clinician Unavailable Steven MED SPECIALISTTrice Attending Clinician Mohan MED SPECIALISTAmeena Dominguez Attending Clinician AMEENA PRESTON Attending Clinician Unavailable Shiva BARNARD, Praveen Attending Clinician EKTA BERMUDEZ Attending Clinician Unavailable PATRICK CARRANZA Attending Clinician Unavailable Olga Clements Attending Clinician Unavailable LEANNE LOZOYA Attending Clinician Unavailable Marlo De Andaya S Attending Clinician Eve Chaves RN Attending Clinician Unavailable Patrick Schumacher Attending Clinician Doctor Unassigned, [place] Attending Clinician Unavailable SETH DYKES Attending Clinician Unavailable REHAN COTTON Attending Clinician Unavailable Adriana LEGER, Viktoriya Charlton Attending Clinician JUAN MENSAH Attending Clinician Unavailable CHIDI SKYE Attending Clinician Unavailable Tangela Perez Attending Clinician Unavailable DO WYATT SOTOMAYOR Attending Clinician Unavailable AMBROSIO MUÑOZ Attending Clinician Unavailable PRAVEEN BLAS Attending Clinician Unavailable ELIUD STAFFORD Attending Clinician Unavailable LIZBETH WOLFE Attending Clinician Unavailable FLOYD VERA Attending Clinician Unavailable POLLY HONG Attending Clinician Unavailable DR LEXUS MCINTOSH Attending Clinician Unavailable QUINTIN BRITO Attending Clinician Unavailable SUZANNE LOPEZ Admitting Clinician Unavailable VALENTIN BOX Admitting Clinician Unavailable Hernandez Admitting Clinician Unavailable RIDGE PAGAN Admitting Clinician [...] Policy Number Effective Date Expiration Date S ource [id number] 1958 00:00:00 MEDI-SHARE C1 [id number] [facility] MEDI-SHARE C1 [id number] [facility] MEDI-SHARE C1 [id number] [facility] [id number] 1958 00:00:00 MEDI-SHARE C1 [id number] [facility] PHCS GENERIC [id number] 2018 00:00:00 Problems Condition Condition Condition Status [...] Active Overview: Univers for other for other -11 Formattin i ty of preprocedu preprocedu 00:00: g of this [place] ral ral 00 note examinatiadela examinatiadela might be Gian payton different n from [...] l (LUF/LI V/SA) 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[facility] 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 Memoria l (LUF/LI V/SA) Pain in Pain in Problem Active [facility] St pelvis pelvis [facility] (LUF/LI V/SA) Anxiety Anxiety Problem Active [facility] (LUF/LI V/SA) [id number] Endometrio Problem Active [facility] No known No known Disease Unive rs active active ity of problems problems [facility] Allergies, Adverse Reactions, Alerts Allergy Allergy Status Severity Reaction(s) Onset Inactive Treating Comm ents Source Name Type Date Date Clinician ketorola DA Active MS rash 2021-07 [facility] [place] [facility] [place] DA Active U rash [facility] 2[facility]07 [place] 00:[facility]: [facility]ope 00 [facility] KETOROL[place] DRUG Active Low Rash 2020-07 Univers C INGREDI 2- ity of 00:00: [place] 00 [facility] Ketorola Propensi Active Rash 2020-07 Univer s c ty to 08-22 ity of adverse 00:00: [place] reaction 00 [facility] [place] ket[place]ola DA Active MS [facility] 9[facility]10 [facility] [place] ketorola DA Active U rash [facility] c 9-24 [place] 00:00: d 00 [facility] ketorola DA Active U [facility] c 9-24 [place] 00:00: d 00 [facility] KETOROLA DRUG Active Med Itching MD Duarte INGREDI 07-19 Gian 00:00: n 00 [place] Drug Active Itching Univers c Allergy 07-19 ity of 00:00: [place] 00 [facility] 0 Drug Active Unknown [facility] Toradol DA Active Unknown Rash [facility] Memoria l (LUF/LI V/SA) Family History Family Member Diagnosis Comments Start Date Stop Date Source Natural mother -Breast cancer [facility] MD Naif Ayoub [facility] Social History Social Habit Start Date Stop Date Quantity Comments Source History of Tobacco [facility] ASSERTION [facility] Gender identity [facility] Sexual orientation [facility] Hospital Exposure to 2022-11-10 2022-11-20 Not sure [facility] SARS-CoV-2 (event) 00:00:00 21:50:00 [facility] Tobacco use and 2021-08-29 2021-08-29 Smokeless Universit y of exposure 00:00:00 00:00:00 tobacco non-user [facility] Alcohol intake 2018-10-04 2018-10-04 Current University 00:00:00 00:00:00 non-drinker of [facility] (finding) Cigarettes smoked 2018-09-04 2018-09-04 Univers ity of current (pack per 00:00:00 00:00:00 [place] Zoltan Neely ) - Reported Cancer Ce nter Cigarette 2018-09-04 2018-09-04 University of pack-years 00:00:00 00:00:00 [facility] Sex Assigned At [birth year] [facility] Smoking Status Start Date Stop Date Source Tobacco smoking [facility] consumption unknown Never smoked tobacco [facility] Former Smoker 2020-05-03 00:00:00 2020-05-03 [facility] Medications Ordered Filled Start Stop Current Ordering Indication Dosage Frequency Signature Comments Components Source Medication Medication Date Date Medication? Clinician (SIG) Name Name iopamidol No [id number] 100mL 100 mL, Univers (ISOVUE 5-24 05-24 Intravenou ity o f 370-500 mL) 06:30: 05:32 s, ONCE, 1 [place] injection 00 :00 dose, On Medica l 100 mL Wed Branch 11/21/22 at 0130, Routine FENTanyl PF 2022- No 50ug 50 mcg, Un spring (SUBLIMAZE 11-21 05-24 Slow IV ity o f (PF)) 05:45: 05:12 Push, [place] injection 00 :00 ONCE, 1 Medical 50 mcg dose, On Branch Sat11/21/22 at 0045, Routine FENTanyl PF 2022- No 50ug 50 mcg, Un spring (SUBLIMAZE 5-24 05-24 Slow IV ity o f (PF)) 04:30: 03:41 Push, [place] injection 00 :00 ONCE, 1 Medical 50 mcg dose, On Branch Tu11/20/22 at 2330, Routine NaCl 0.9% No 1000mL at 999 Uni vers (NS) bolus 24 05-24 mL/hr, ity of infusion 04:30: 05:11 1,000 mL, [place] as 1,000 mL 00 :00 IV Medical Infusion, Branch ONCE, 1 dose, On e 11/20/22 at 2330, JOSE proMETHazin 2022- No 12.5mg 12.5 mg, Univers e 11-21 IV ity of (PHENERGAN) 03:45: 03:41 Piggyback, [place] 12.5 mg in 00 :00 ONCE, 1 Medica l NaCl 0.9% dose, On Branch (NS) 50 mL Tue IV 11/20/22 at piggyback 2245, JOSE FENTanyl PF 2022- No 75ug 75 mcg, Un spring (SUBLIMAZE 10-26 Slow IV ity o f (PF)) 05:15: 05:20 Push, [place] injection 00 :00 ONCE, 1 Medical 75 mcg dose, On Branch 10/26/22 at 0015, STAT NaCl 0.9% 2022- No 1000mL at 999 Uni vers (NS) bolus 10-26 mL/hr, ity of infusion 04:30: 05:21 1,000 mL, [place] as 1,000 mL 00 :00 IV Medical Piggyback, Branch ONCE, 1 dose, On Piedad 10/25/22 at 2330, STAT FENTanyl PF 2022- No 100ug 100 mcg, Univers (SUBLIMAZE 10-26 Slow IV ity o f (PF)) 04:00: 04:06 Push, [place] injection 00 :00 ONCE, 1 Medical 100 mcg dose, On Branch Piedad 10/25/22 at 2300, STAT proMETHazin 2022- No 25mg 25 mg, IV Univers e 10-26 Piggyback, ity of (PHENERGAN) 04:00: 04:05 ONCE, 1 [place] 25 mg in 00 :00 dose, On Medical NaCl 0.9% [place] Branch (NS) 50 mL 10/25/22 at IV 2300, JOSE piggyback morpHINE (2 2022- No 2mg 2 mg, Slow Univers mg/mL) 10-0305 IV Push, ity of injection 2 07:15: 06:40 ONCE, 1 [place] mg 00 :00 dose, On Medical 10/03/22 Branch at 0215, JOSE ondansetron 2022- No 4mg 4 mg, Slow Univers (ZOFRAN 10-03 04-05 IV Push, ity of (PF)) 06:00: 05:42 ONCE, 1 [place] injection 4 00 :00 dose, On Medi felipa mg 10/03/22 Branch at 0100, JOSE FENTanyl PF 2022- No 50ug 50 mcg, Un spring (SUBLIMAZE 10-03 04-05 Slow IV ity o f (PF)) 04:45: 05:42 Push, [place] injection 00 :00 ONCE, 1 Medical 50 mcg dose, On Branch 10/02/22 at 2345, JOSE ondansetron 2021-07- No [id number] 8mg Univers (ZOFRAN-ODT 2-15 12-14 ity of ) 00:45: 23:45 [place] disintegrat 00 :00 Medical ing tablet Branch 8 mg ondansetron 2021-07- No [id number] 8mg 8 mg, Univers (ZOFRAN-ODT 2-15 12-14 Oral, ity of ) 00:45: 23:45 ONCE, 1 [place] disintegrat 00 :00 dose, On Medi felipa ing tablet Wed Branch 8 mg 06/13/22 at 1845, Routine benzonatate 2021-07 Yes [id number] 200mg Take 2 Univers 100 mg 2-14 capsules ity of capsule 00:00: by mouth [place] 00 every 8 Medical (eight) Branch hours as needed for Cough. ondansetron 2021-07 Yes [id number] 4mg Take 1 Univers 4 mg 2-14 tablet by ity of disintegrat 00:00: mouth [place] ing tablet 00 every 8 Medica l (eight) Branch hours as needed for Nausea and Vomiting (N/V). nirmatrelvi 2021-07 Yes [id number] 3{tbl} Take 3 Univers r-ritonavir 2-14 tablets by it y of (PAXLOVID, 00:00: mouth in [place] as EUA,) 300 00 the Medical mg (150 mg morning Branch x 2)-100 mg and 3 tablet tablets in the evening. ondansetron 2021-07 Yes [id number] 4mg Take 1 Univers 4 mg 2-14 tablet by ity of disintegrat 00:00: mouth [place] ing tablet 00 every 8 Medica l (eight) Branch hours as needed for Nausea and Vomiting (N/V). nirmatrelvi 2021-07 Yes [id number] 3{tbl} Take 3 Univers r-ritonavir 2-14 tablets by it y of (PAXLOVID, 00:00: mouth in [place] EUA,) 300 00 the Medical mg (150 mg morning Branch x 2)-100 mg and 3 tablet tablets in the evening. promethazin 2021-07 Yes [id number] 5mL Take 5 mL Univers e-dextromet 2-14 by mouth 4 it y of horphan 00:00: (four) [place] 6.25-15 00 times Medical mg/5 mL daily as Branch syrup needed for Cough. ondansetron 2021-07 Yes [id number] 4mg Take 1 Univers 4 mg 2-14 tablet by ity of disintegrat 00:00: mouth [place] ing tablet 00 every 8 Medica l (eight) Branch hours as needed for Nausea and Vomiting (N/V). nirmatrelvi 2021-07 Yes [id number] 3{tbl} Take 3 Univers r-ritonavir 2-14 tablets by it y of (PAXLOVID, 00:00: mouth in [place] EUA,) 300 00 the Medical mg (150 mg morning Branch x 2)-100 mg and 3 tablet tablets in the evening. promethazin 2021-07 Yes [id number] 5mL Take 5 mL Univers e-dextromet 2-14 by mouth 4 it y of horphan 00:00: (four) [place] 6.25-15 00 times Medical mg/5 mL daily as Branch syrup needed for Cough. ondansetron 2021-07 Yes [id number] 4mg Take 1 Univers 4 mg 2-14 tablet by ity of disintegrat 00:00: mouth [place] ing tablet 00 every 8 Medica l (eight) Branch hours as needed for Nausea and Vomiting (N/V). nirmatrelvi 2021-07 Yes [id number] 3{tbl} Take 3 Univers r-ritonavir 2-14 tablets by it y of (PAXLOVID, 00:00: mouth in [place] EUA,) 300 00 the Medical mg (150 mg morning Branch x 2)-100 mg and 3 tablet tablets in the evening. promethazin 2021-07 Yes [id number] 5mL Take 5 mL Univers e-dextromet 2-14 by mouth 4 it y of horphan 00:00: (four) [place] 6.25-15 00 times Medical mg/5 mL daily as Branch syrup needed for Cough. ondansetron 2021-07 Yes [id number] 4mg Take 1 Univers 4 mg 2-14 tablet by ity of disintegrat 00:00: mouth [place] ing tablet 00 every 8 Medica l (eight) Branch hours as needed for Nausea and Vomiting (N/V). nirmatrelvi 2021-07 Yes [id number] 3{tbl} Take 3 Univers r-ritonavir 2-14 tablets by it y of (PAXLOVID, 00:00: mouth in [place] EUA,) 300 00 the Medical mg (150 mg morning Branch x 2)-100 mg and 3 tablet tablets in the evening. promethazin 2021-07 Yes [id number] 5mL Take 5 mL Univers e-dextromet 2-14 by mouth 4 it y of horphan 00:00: (four) [place] 6.25-15 00 times Medical mg/5 mL daily as Branch syrup needed for Cough. nirmatrelvi 2021-07- No [id number] 3{tbl} Take 3 Univers r-ritonavir 2-14 12-14 tablets by i ty of (PAXLOVID, 00:00: 00:00 mouth in [place] EUA,) 300 00 :00 the Medical mg (150 mg morning Branch x 2)-100 mg and 3 tablet tablets in the evening. benzonatate 2021-07- No [id number] 200mg Take 2 Univers 100 mg 2-14 12-14 capsules ity of capsule 00:00: 00:00 by mouth [place] 00 :00 every 8 Medical (eight) Branch hours as needed for Cough. ondansetron 2021-07- No 4mg 4 mg, Slow Univers (ZOFRAN 07-07 IV Push, ity of (PF)) 15:45: 15:35 ONCE, 1 [place] injection 4 00 :00 dose, On Medi felipa mg Mon Branch 05/07/22 at 0945, JOSE FENTanyl PF 2021-07- No 50ug 50 mcg, Un spring (SUBLIMAZE [...] n: Perioperat kieran Patient tamsulosin 2021-07 Yes [id number] .4mg Take 1 U nivers 0.4 mg 24 07-07 capsule by ity of hr capsule 00:00: mouth at [place] as 00 bedtime. Medical Branch tamsulosin 2021-07 No [id number] .4mg Take 1 Univers 0.4 mg 24 07-07- capsule by ity of hr capsule 00:00: [...] On Sat02/19/22 at 1030, JOSE morpHINE (4 2021-0 2021- No 4mg 4 mg, Slow Univers mg/mL) 02-19 IV Push, ity of injection 4 14:45: 15:05 ONCE, 1 [place] mg 00 :00 dose, On Medical [facility] Branch 02/19/22 at 0945, STAT ondansetron 2021-2021- No 4mg 4 mg, Slow Univers (ZOFRAN 02-19 IV Push, ity of (PF)) 14:30: 15:05 ONCE, 1 [place] injection 4 00 :00 dose, On Medi felipa mg [facility] 02/19/22 at 0930, JOSE methylPREDN 2021-0 Yes [id number] Take by [facility] [employer] 11-29 mouth ity of (MEDROL, 00:00: SEE-INSTRU [place] as TE,) 4 mg 00 CTIONS. Medica l tablets follow Branch package directions methylPREDN 2021-0 Yes [id number] Take by [facility] ISolone 11-29 mouth ity of (MEDROL, 00:00: SEE-INSTRU [place] TE,) 4 mg 00 CTIONS. Medica l tablets follow Branch package directions methylPREDN 2021-0 Yes [id number] Take by [employer] ISolone 11-29 mouth ity of (MEDROL, 00:00: SEE-INSTRU [place] TE,) 4 mg 00 CTIONS. Medica l tablets follow Branch package directions methylPREDN 2021-0 2022- No [id number] Take by [employer] 11-29 12-14 mouth ity of (MEDROL, 00:00: 00:00 [place]-INSTRU [place] TE,) 4 mg 00 :00 CTIONS. Medica l tablets follow Branch package directions amoxicillin 2021-0 2022- No [id number] 1{tbl} Take 1 Univers -clavulanat 11-29 tablet by it y of e [id number] 00:00: 04:59 mouth 2 [place] mg per 00 :00 (two) Medical tablet times Branch daily for 7 days. codeine-gua 2021-0 2022- No [id number] 5mL Take 5 mL Univers ifenesin 11-29 by mouth ity of 10-100 mg/5 00:00: 04:59 every 6 [place] mL oral 00 :00 (six) Medical solution hours as Branch needed for Cough for up to 7 days. Indication s: acute pain estrogens, 2021-0 Yes Take by Univ ers conjugated 3-01 mouth. ity of (PREMARIN 16:19: [place] ORAL) 44 Medical Branch estrogens, 2021-0 Yes Take by Univ ers conjugated 3-01 mouth. ity of (PREMARIN 16:19: [place] ORAL) 44 Medical Branch estrogens, 2021-0 Yes Take by Univ ers conjugated 3-01 mouth. ity of (PREMARIN 16:19: [place] ORAL) 44 Medical Branch estrogens, 0 Yes Take by Univ ers conjugated 3-01 mouth. ity of (PREMARIN 16:19: [place] ORAL) 44 Medical Branch estrogens, 0 Yes Take by Univ ers conjugated 3-01 mouth. ity of (PREMARIN 16:19: [place] ORAL) 44 Medical Branch estrogens, Yes Take by Univ ers conjugated 3-01 mouth. ity of (PREMARIN 16:19: [place] ORAL) 44 Medical Branch estrogens, 0 Yes Take by Univ ers conjugated 3-01 mouth. ity of (PREMARIN 16:19: [place] ORAL) 44 Medical Branch estrogens, 0 Yes Take by Univ ers conjugated 3-01 mouth. ity of (PREMARIN 16:19: [place] ORAL) 44 Medical Branch naproxen 2021-0 Yes [id number] 500mg Take 1 U nivers (NAPROSYN) 2-02 tablet by ity of 500 mg 00:00: mouth 2 [place] tablet 00 (two) Medical times Branch daily with meals. naproxen 2021-0 Yes [id number] 500mg Take 1 U nivers (NAPROSYN) 2-02 tablet by ity of 500 mg 00:00: mouth 2 [place] tablet 00 (two) Medical times Branch daily with meals. naproxen 2021-0 Yes [id number] 500mg Take 1 U nivers (NAPROSYN) 2-02 tablet by ity of 500 mg 00:00: mouth 2 [place] tablet 00 (two) Medical times Branch daily with meals. naproxen 2021-0 Yes [id number] 500mg Take 1 U nivers (NAPROSYN) 2-02 tablet by ity of 500 mg 00:00: mouth 2 [place] tablet 00 (two) Medical times Branch daily with meals. naproxen 2021-0 Yes [id number] 500mg Take 1 U nivers (NAPROSYN) 2-02 tablet by ity of 500 mg 00:00: mouth 2 [place] tablet 00 (two) Medical times Branch daily with meals. naproxen 2021-0 Yes [id number] 500mg Take 1 U nivers (NAPROSYN) 2-02 tablet by ity of 500 mg 00:00: mouth 2 [place] tablet 00 (two) Medical times Branch daily with meals. naproxen 0 Yes [id number] 500mg Take 1 U nivers (NAPROSYN) 2-02 tablet by ity of 500 mg 00:00: mouth 2 [place] tablet 00 (two) Medical times Branch daily with meals. naproxen 2021-0 Yes [id number] 500mg Take 1 U nivers (NAPROSYN) 2-02 tablet by ity of 500 mg 00:00: mouth 2 [place] tablet 00 (two) Medical times Branch daily with meals. albuterol 2020-07 Yes [id number] 2{puff} Inhale 2 Univers 90 2-22 Puffs [...] Cough. Indication s: cough albuterol 2020-07 Yes [id number] 2{puff} Inhale 2 Univers 90 2-22 Puffs [...] Cough. Indication s: cough albuterol 2020-07 Yes [id number] 2{puff} Inhale 2 Univers 90 2-22 Puffs [...] Cough. Indication s: cough albuterol 2020-07 Yes [id number] 2{puff} Inhale 2 Univers 90 2-22 Puffs [...] Cough. Indication s: cough albuterol 2020-07 Yes [id number] 2{puff} Inhale 2 Univers 90 2-22 Puffs ity of mcg/actuati 00:00: every 6 [place] as on inhaler 00 (six) Medical hours as Branch needed for Wheezing or Bronchospa sm. albuterol 2020-07 Yes [id number] 2{puff} Inhale 2 Univers 90 2-22 Puffs ity of mcg/actuati 00:00: every 6 [place] as on inhaler 00 (six) Medical hours as Branch needed for Wheezing or Bronchospa sm. albuterol 2020-07 Yes [id number] 2{puff} Inhale 2 Univers 90 2-22 Puffs ity of mcg/actuati 00:00: every 6 [place] as on inhaler 00 (six) Medical hours as Branch needed for Wheezing or Bronchospa sm. albuterol 2020-07 Yes [id number] 2{puff} Inhale 2 Univers 90 2-22 Puffs [...] [place] 00 EVERY DAY Medical IN THE [place] MORNING ON AN EMPTY STOMACH levothyroxi 2020-07 Yes TAKE 1 Univ ers ne 137 mcg 2-16 TABLET BY ity of tablet 00:00: MOUTH [place] 00 EVERY DAY Medical IN THE [place] MORNING ON AN EMPTY STOMACH levothyroxi 2020-07 Yes TAKE 1 Univ ers ne 137 mcg 2-16 TABLET BY ity of tablet 00:00: MOUTH [place] 00 EVERY DAY Medical IN THE [place] MORNING ON AN EMPTY STOMACH levothyroxi 2020-07 Yes TAKE 1 Univ ers ne 137 mcg 2-16 TABLET BY ity of tablet 00:00: MOUTH [place] 00 EVERY DAY Medical IN THE [place] MORNING ON AN EMPTY STOMACH levothyroxi 2020-07 Yes TAKE 1 Univ ers ne 137 mcg 2-16 TABLET BY ity of tablet 00:00: MOUTH [place] 00 EVERY DAY Medical IN THE [place] MORNING ON AN EMPTY STOMACH levothyroxi 2020-07 Yes TAKE 1 Univ ers ne 137 mcg 2-16 TABLET BY ity of tablet 00:00: MOUTH [place] 00 EVERY DAY Medical IN THE [place] MORNING ON AN EMPTY STOMACH levothyroxi 2020-07 Yes TAKE 1 Univ ers ne 137 mcg 2-16 TABLET BY ity of tablet 00:00: MOUTH [place] 00 EVERY DAY Medical IN THE [place] MORNING ON AN EMPTY STOMACH levothyroxi 2020-07 Yes TAKE 1 Univ ers ne 137 mcg 2-16 TABLET BY ity of tablet 00:00: MOUTH [place] 00 EVERY DAY Medical IN THE [place] MORNING ON AN EMPTY STOMACH acetaminoph acetaminoph [...] 0-23 [facility] 00:[facility]: - [facility] 00 [facility] Premarin Premarin 2018-07 No 1{table QD Premarin 1.25 MG 1.25 MG 0-23 t} 1.25 MG 00:00: 00 estrogens, 2018-07 Yes Take by Univ ers conjugated 0-23 mouth ity of (PREMARIN 00:00: daily. [place] ORAL) 00 [facility] tata [facility] estrogens, 2018-07 Yes Take by Univ ers conjugated 0-23 mouth ity of (PREMARIN 00:00: daily. [place] ORAL) 00 [facility] estrogens, 2018-07 Yes Take by Univ ers conjugated 0-23 mouth ity of (PREMARIN 00:00: daily. [place] ORAL) [facility] estrogens, 2018-07 Yes Take by Univ ers conjugated 0-23 mouth ity of (PREMARIN 00:00: daily. [place] ORAL) 00 MD Gian payton [facility] estrogens, 2018-07 Yes Take by Univ ers conjugated 0-23 mouth ity of (PREMARIN 00:00: daily. [place] ORAL) 00 MD Gian payton [facility] estrogens, 2018-07 Yes Take by Univ ers conjugated 0-23 mouth ity of (PREMARIN 00:00: daily. [place] ORAL) [facility] estrogens, 2018-07 Yes Take by Univ ers conjugated 0-23 mouth ity of (PREMARIN 00:00: daily. [place] ORAL) 00 MD Gian payton [facility] estrogens, 2018-07 Yes Take by Univ ers conjugated 0-23 mouth ity of (PREMARIN 00:00: daily. [place] ORAL) 00 MD Gian payton [facility] estrogens, 2018-07 Yes Take by Univ ers conjugated 0-23 mouth ity of (PREMARIN 00:00: daily. [place] ORAL) 00 MD Gian payton [facility] estrogens, 2018-07 Yes Take by Univ ers conjugated 0-23 mouth ity of (PREMARIN 00:00: daily. [place] ORAL) 00 MD Gian payton [facility] estrogens, 2018-07 Yes Take by Univ ers conjugated 0-23 mouth ity of (PREMARIN 00:00: daily. [place] ORAL) MD Gian payton [facility] estrogens, 2018-07 Yes Take by Univ ers conjugated 0-23 mouth ity of (PREMARIN 00:00: daily. [place] ORAL) 00 MD Gian payton [facility] estrogens, 2018-07 Yes Take by Univ ers conjugated 0-23 mouth ity of (PREMARIN 00:00: daily. [place] ORAL) 00 [facility] estrogens, 2018-07 Yes Take by Univ ers conjugated 0-23 mouth ity of (PREMARIN 00:00: daily. [place] ORAL) MD Gian payton [facility] estrogens, 2018-07 Yes Take by Univ ers conjugated 0-23 mouth ity of (PREMARIN 00:00: daily. [place] ORAL) 00 [facility]ata [facility] estrogens, 2018-07 Yes Take by Univ ers conjugated 0-23 mouth ity of (PREMARIN 00:00: daily. [place] ORAL) [facility] estrogens, 2018-07 Yes Take by Univ ers conjugated 0-23 mouth ity of (PREMARIN 00:00: daily. [place] ORAL) 00 MD Chan tata [facility] estrogens, 2018-07 Yes Take by Univ ers conjugated 0-23 mouth ity of (PREMARIN 00:00: daily. [place] ORAL) 00 [facility] estrogens, 2018-07 Yes Take by Univ ers conjugated 0-23 mouth ity of (PREMARIN 00:00: daily. [place] ORAL) 00 [facility] estrogens, 2018-07 Yes Take by Univ ers conjugated 0-23 mouth ity of (PREMARIN 00:00: daily. [place] ORAL) 00 MD Chan tata [facility] estrogens, 2018-07 Yes Take by Univ ers conjugated 0-23 mouth ity of (PREMARIN 00:00: daily. [place] ORAL) 00 MD [facility] Estradiol Estradiol 2018-07 Yes Kaywin 1 tablet Common 0-01 [facility] 00:00: - [facility] 00 [facility] citalopram 2017- Yes Univers (CeleXA) 40 9-10 ity of mg tablet 00:00: [place] 00 MD Gian payton [facility] citalopram 2017- Yes Univers (CeleXA) 40 9-10 ity of mg tablet 00:00: [place] 00 MD Gian payton [facility] citalopram 2017- Yes Univers (CeleXA) 40 9-10 ity of mg tablet 00:00: [place] 00 MD [facility] 0 Yes Univers (CeleXA) 40 9-10 ity of mg tablet 00:00: [facility] tata [facility] citaloemanuel medical center 0 Yes Univers (CeleXA) 40 9-10 ity of mg tablet 00:00: [facility] Yes Univers (CeleXA) 40 9-10 ity of mg tablet 00:00: [facility] Yes Univers (CeleXA) 40 9-10 ity of mg tablet 00:00: [facility] Yes Univers (CeleXA) 40 9-10 ity of mg tablet 00:00: [facility] 0 Yes Univers (CeleXA) 40 9-10 ity of mg tablet 00:00: [facility] 0 Yes Univers (CeleXA) 40 9-10 ity of mg tablet 00:00: [place] [facility] Yes Univers (CeleXA) 40 9-10 ity of mg tablet 00:00: [facility] 0 Yes Univers (CeleXA) 40 9-10 ity of mg tablet 00:00: [facility] 0 Yes Univers (CeleXA) 40 9-10 ity of mg tablet 00:00: [place] [facility] Yes Univers (CeleXA) 40 9-10 ity of mg tablet 00:00: [facility] 0 Yes Univers (CeleXA) 40 9-10 ity of mg tablet 00:00: [place] [facility] 0 Yes Univers (CeleXA) 40 9-10 ity of mg tablet 00:00[facility] 0 Yes Univers (CeleXA) 40 9-10 ity of mg tablet 00:00: [place] [facility] citalopram 0 Yes Univers (CeleXA) 40 9-10 ity of mg tablet 00:00: [facility] citalopram 0 Yes Univers (CeleXA) 40 9-10 ity of mg tablet 00:00: [place] Gian [facility] citalopram 0 Yes Univers (CeleXA) 40 9-10 ity of mg tablet 00:00: [place] Gian [facility] citalopram 0 Yes Univers (CeleXA) 40 9-10 ity of mg tablet 00:00: [place] [facility] levothyroxi 0 Yes Univer s ne 175 mcg 8-10 ity of cap 00:00: [place] Gian [facility] levothyroxi 0 Yes Univer s ne [...] 00 [facility] levothyroxi 2011-0 [...] 00:00: [place] 00 MD [facility] levothyroxi 2010-0 Yes Univer s ne 175 mcg 8-10 ity of cap 00:00: [place] 00 MD [facility] levothyroxi 2010-0 Yes Univer s ne 175 mcg 8-10 ity of cap 00:00: [place] 00 MD [facility] levothyroxi 2010-0 Yes Univer s ne 175 mcg 8-10 ity of cap 00:00: [place] 00 [facility] levothyroxi 2010-0 Yes Univer s ne 175 mcg 8-10 ity of cap 00:00: [place] 00 MD Gian [facility] levothyroxi 2010-0 Yes Univer s ne 175 mcg 8-10 ity of cap 00:00: [place] 00 MD [facility] levothyroxi 2010-0 Yes Univer s ne 175 mcg 8-10 ity of cap 00:00: [place] 00 MD Gian [facility] zolpidem 2007-0 Yes Univers (AMBIEN) 10 07-01 ity of mg tablet 00:00: [place] 00 MD [facility] zolpidem 2006-0 Yes Univers (AMBIEN) 10 07-01 ity of mg tablet 00:00: [place] 00 MD Gian [facility]ton [facility] zolpidem 2007-0 Yes Univers (AMBIEN) 10 07-01 ity of mg tablet 00:00: [place] 00 MD Gian [facility]ton [facility] zolpidem 2006-0 Yes Univers (AMBIEN) 10 07-01 ity of mg tablet 00:00: [place] 00 [facility] zolpidem 2007-0 Yes Univers (AMBIEN) 10 07-01 ity of mg tablet 00:00: [place] 00 [facility]brennan [facility] zolpidem 2007-0 Yes Univers (AMBIEN) 10 07-01 ity of mg tablet 00:00: [place] 00 Andbrennan [facility]ton [facility] zolpidem 2007-0 Yes Univers (AMBIEN) 10 07-01 ity of mg tablet 00:00: [place] 00 [facility] zolpidem 2007-0 Yes Univers (AMBIEN) 10 07-01 ity of mg tablet 00:00: [place] 00 Andbrennan payton [facility] zolpidem 2007-0 Yes Univers (AMBIEN) 10 07-01 ity of mg tablet 00:00: [place] 00 Andbrennan payton [facility] zolpidem 2007-0 Yes Univers (AMBIEN) 10 07-01 ity of mg tablet 00:00: [place] 00 Andbrennan payton [facility] zolpidem 2007-0 Yes Univers (AMBIEN) 10 07-01 ity of mg tablet 00:00: [place] 00 [facility]nan [facility] zolpidem 2007-0 Yes Univers (AMBIEN) 10 07-01 ity of mg tablet 00:00: [place] 00 Andbrennan payton [facility] zolpidem 2007-0 Yes Univers (AMBIEN) 10 07-01 ity of mg tablet 00:00: [place] 00 Andbrennan payton [facility] zolpidem 2007-0 Yes Univers (AMBIEN) 10 07-01 ity of mg tablet 00:00: [place] 00 Andbrennan n [facility] zolpidem 2007-0 Yes Univers (AMBIEN) 10 07-01 ity of mg tablet 00:00: [place] 00 [facility]brennan [facility] zolpidem 2007-0 Yes Univers (AMBIEN) 10 07-01 ity of mg tablet 00:00: [place] 00 Andbrennan n [facility] zolpidem 2007-0 Yes Univers (AMBIEN) 10 07-01 ity of mg tablet 00:00: [place] 00 MD Gian payton [facility] zolpidem 2007-0 Yes Univers (AMBIEN) 10 07-01 ity of mg tablet 00:00: [place] 00 MD [facility] zolpidem Yes [facility] 10 07-01 ity of mg tablet 00:00: [place] 00 MD [facility] zolpidem Yes [facility] 10 07-01 ity of mg tablet 00:00: [place] 00 MD [facility] zolpidem Yes [facility] 10 07-01 ity of mg tablet 00:00: [place] 00 MD Gian [facility] acetaminoph acetaminoph Yes 1 Q[facility].00H [facility] [...] [facility] conjugated conjugated Gutierrez es (NURSING HOME) 1.25 (NURSING HOME) 1.25 Mem oria MG Oral MG [...] [facility] conjugated conjugated daily Olamide kes (NURSING HOME) 1.25 (NURSING HOME) 1.25 Mem oria MG Oral MG Oral l Tablet Tablet (LUF/LI V/SA) levothyroxi levothyroxi Yes 150ug 1xD orally [facility] (LUF/LI V/SA) Celexa Celexa Yes y 1 tablet Commo n [facility] Levothyroxi Levothyroxi Yes y 1 tablet Common ne Sodium ne Sodium Aiden on an Sp karla empty - [facility] stomach in [facility] Estradiol Estradiol Yes Kaywin 1 patch to Common [place] skin [facility] Promethazin Promethazin No 1{table Promethazi e HCl 25 mg e HCl 25 mg t_as_ne ne HCl 25 eded} mg Estradiol Estradiol No 1{patch Estradiol 0.1 MG/24HR 0.1 MG/24HR _to_ski 0.1 n} MG/24HR Celexa 40 Celexa 40 No 1{table QD Celexa 40 MG MG t} MG [place] No 1{table QID [place] 7.5-325 MG 7.5-325 MG t_as_ne 7.5-325 MG [...] Sodium 150 MCG 150 MCG 150 MCG [place] No 1{table QID [place] 7.5-325 MG 7.5-325 MG t_as_ne 7.5-325 MG eded} Promethazin Promethazin No 1{table Promethazi e HCl 25 mg e HCl 25 mg t_as_ne ne HCl 25 eded} mg Estradiol Estradiol No 1{patch Estradiol 0.1 MG/24HR 0.1 MG/24HR _to_ski 0.1 n} MG/24HR Premarin Premarin No 1{table QD Premarin 1.25 MG 1.25 MG t} 1.25 MG [place] No 1{table QID [place] 7.5-325 MG 7.5-325 MG t_as_ne 7.5-325 MG [...] 1.25 MG 1.25 MG t} 1.25 MG [place] No 1{table QID [place] 7.5-325 MG 7.5-325 MG t_as_ne 7.5-325 MG [...] [facility] dose seasonal, dose seasonal, 00:00:00 Memdiego al preservative-free preservative-free (LUF/ABI/SA) Influenza, 2011-03-30 Completed University of Unspecified 00:00:00 [place] [facility] Tdap 2011-03-30 Completed University of 00:00:00 [place] Olvin banuelos [facility] Influenza, 2011-03-30 Completed [facility] Unspecified 00:00:00 [place] [facility] 2011-03-30 Completed [facility] of 00:00:00 [place] [facility] Influenza, 2011-03-30 Completed University of Unspecified 00:00:00 [place] [facility] Td[facility] 2011-03-30 Completed University of 00:00:00 [place] [facility] Influenza, 2011-03-30 Completed University of Unspecified 00:00:00 [place] [facility] Tdap 2011-03-30 Completed University of 00:00:00 [place] [facility] Influenza, 2011-03-30 Completed University of Unspecified 00:00:00 [place] [facility] Td 2011-03-30 Completed University of 00:00:00 [place] [facility] Influenza, 2011-03-30 Completed University of Unspecified 00:00:00 [place] [facility]so [facility] Td 2011-03-30 Completed University of 00:00:00 [place] [facility] Influenza, 2011-03-30 Completed University of Unspecified 00:00:00 [place] Al[facility]so [facility] Tdap 2011-03-30 Completed University of 00:00:00 [place] [facility] Influenza, 2011-03-30 Completed University of Unspecified 00:00:00 [place] [facility] Tdap 2011-03-30 Completed University of 00:00:00 [place] [facility] Influenza, 2011-03-30 Completed University of Unspecified 00:00:00 [place] [facility] Tdap 2011-03-30 Completed University of 00:00:00 [place] [facility] Influenza, 2011-03-30 Completed University of Unspecified 00:00:00 [place] [facility] Tdap 2011-03-30 Completed University of 00:00:00 [place] [facility] Influenza, 2011-03-30 Completed University of Unspecified 00:00:00 [place] [facility] Tdap 2011-03-30 Completed University of 00:00:00 [place] [facility] Influenza, 2011-03-30 Completed University of Unspecified 00:00:00 [place] [facility] Tdap 2011-03-30 Completed University of 00:00:00 [place] Lubiner [facility] Influenza, 2011-03-30 Completed University of Unspecified 00:00:00 [place] [facility] Tdap 2011-03-30 Completed University of 00:00:00 [place] Olvin [facility] Influenza, 2011-03-30 Completed University of Unspecified 00:00:00 [place] Alfonso hazel [facility] Tdap 2011-03-30 Completed University of 00:00:00 [place] Olvin [facility] Influenza, 2011-03-30 Completed University of Unspecified 00:00:00 [place] [facility] Tdap 2011-03-30 Completed University of 00:00:00 [place] Olvin [facility] Influenza, 2011-03-30 Completed University of Unspecified 00:00:00 [place] [facility] Tdap 2011-03-30 Completed University of 00:00:00 [place] [facility] Influenza, 2011-03-30 Completed University of Unspecified 00:00:00 [place] [facility] Tdap 2011-03-30 Completed University of 00:00:00 [place] [facility] Influenza, 2011-03-30 Completed University of Unspecified 00:00:00 [place] Alfonso [facility] Tdap 2011-03-30 Completed University of 00:00:00 [place] [facility] Influenza, 2011-03-30 Completed University of Unspecified 00:00:00 [place] Alfonso ilir [facility] Tdap 2011-03-30 Completed [facility] 00:00[facility]00 [place] [facility] 2011-[facility]-30 Completed [facility] of Unspecified 00:00:00 [place] [facility] Tdap 2011-03-30 Completed University of 00:00:00 [place] Olvin [facility] Influenza, 2011-03-30 Completed University of Unspecified 00:00:00 [place] [facility] Tdap 2011-03-30 Completed University of 00:00:00 [place] [facility] Influenza (IM) 2009-04-05 Completed University of Preservative Free 00:00:00 [facility] Influenza (IM) 2009-04-05 Completed University of Preservative Free 00:00:00 [facility] Influenza (IM) 2009-04-05 Completed University of Preservative Free 00:00:00 [facility] Influenza (IM) 2009-04-05 Completed University of Preservative Free 00:00:00 [facility] Influenza (IM) 2009-04-05 Completed University of Preservative Free 00:00:00 [facility] Influenza (IM) 2009-04-05 Completed University of Preservative Free 00:00:00 [facility] Influenza (IM) 2009-04-05 Completed University of Preservative Free 00:00:00 [facility] Influenza (IM) 2009-04-05 Completed University of Preservative Free 00:00:00 [facility] Influenza (IM) 2009-04-05 Completed University of Preservative Free 00:00:00 [facility] Influenza (IM) 2009-04-05 Completed University of Preservative Free 00:00:00 [facility] Influenza (IM) 2009-04-05 Completed University of Preservative Free 00:00:00 [facility] Influenza (IM) 2009-04-05 Completed University of Preservative Free 00:00:00 [facility] Influenza (IM) 2009-04-05 Completed University of Preservative Free 00:00:00 [facility] Influenza (IM) 2009-04-05 Completed University of Preservative Free 00:00:00 [facility] Influenza (IM) 2009-04-05 Completed University of Preservative Free 00:00:00 [facility] Influenza (IM) 2009-04-05 Completed University of Preservative Free 00:00:00 [facility] Influenza (IM) 2009-04-05 Completed University of Preservative Free 00:00:00 [facility] Influenza (IM) 2009-04-05 Completed University of Preservative Free 00:00:00 [facility] Influenza (IM) 2009-04-05 Completed University of Preservative Free 00:00:00 [facility] Influenza (IM) 2009-04-05 Completed University of Preservative Free 00:00:00 [facility] Influenza (IM) 2009-04-05 Completed University of Preservative Free 00:00:00 [facility] Vital Signs Vital Name Observation Time Observation Value Comments Source Systolic blood 2022-11-21 06:43:00 132 mm[Hg] Univer sity of pressure [facility] Diastolic blood 2022-11-21 06:43:00 74 mm[Hg] Unive rsity of pressure [facility] Heart rate 2022-11-21 06:43:00 76 /min [facility] [place] [facility] Body temperature 2022-11-21 06:43:00 36.22 Ericka Univ ersity of [place] [facility] Oxygen saturation in 2022-11-21 06:43:00 99 /min University of Arterial blood by [place] Jugo felipa Pulse oximetry Branch Respiratory rate 2022-11-21 05:12:00 21 /min Univ ersity of [place] [facility] Body height 2022-11-21 02:40:00 162.6 cm [facility] [place] [facility] Body weight 2022-11-21 02:40:00 104.327 kg [facility] [place] [facility] BMI 2022-11-21 02:40:00 39.48 kg/m2 [facility] [place] [facility] Systolic blood 2022-10-26 05:15:00 119 mm[Hg] Univer sity of pressure [facility] Diastolic blood 2022-10-26 05:15:00 52 mm[Hg] Unive rsity of pressure [place] [facility] Heart rate 2022-10-26 05:15:00 84 /min [facility] [place] [facility] Respiratory rate 2022-10-26 05:15:00 22 /min Univ ersity of [place] [facility] Oxygen saturation in 2022-10-26 05:15:00 98 /min University of Arterial blood by [place] Jugo felipa Pulse oximetry Branch Body temperature 2022-10-26 03:39:00 37.22 Ericka Univ ers[facility] [place] [facility] Body height 2022-10-26 03:39:00 162.6 cm [facility] [place] [facility] Body weight 2022-10-26 03:39:00 113.399 kg [facility] [place] [facility] BMI 2022-10-26 03:39:00 42.91 kg/m2 [facility] [place] [facility] Systolic blood 2022-10-03 07:08:00 146 mm[Hg] Univer sity of pressure [place] [facility] Diastolic blood 2022-10-03 07:08:00 91 mm[Hg] Unive rsity of pressure [place] [facility] Heart rate 2022-10-03 07:08:00 81 /min [facility] [place] [facility] Respiratory rate 2022-10-03 07:08:00 16 /min Univ ersity [facility] [place] [facility] Oxygen saturation in 2022-10-03 07:08:00 98 /min University of Arterial blood by [facility] Pulse oximetry Branch Body temperature 2022-10-03 03:31:00 37.22 Ericka Univ ers[facility] [place] [facility] Body height 2022-10-03 03:31:00 162.6 cm [facility] [place] [facility] Body weight 2022-10-03 03:31:00 108.863 kg [facility] [place] [facility] BMI 2022-10-03 03:31:00 41.20 kg/m2 [facility] [place] [facility] Systolic blood 2022-06-13 23:28:00 132 mm[Hg] Univer sity of pressure [place] [facility] Diastolic blood 2022-06-13 23:28:00 83 mm[Hg] Unive rsity of pressure [place] [facility] Heart rate 2022-06-13 23:28:00 107 /min [facility] [place] [facility] Body temperature 2022-06-13 23:28:00 37.17 Ericka Univ [facility] [place] [facility] Respiratory rate 2022-06-13 23:28:00 16 /min Univ ersity [facility] [place] [facility] Body height 2022-06-13 23:28:00 162.6 cm [facility] [place] [facility] Body weight 2022-06-13 23:28:00 102.15 kg [facility] [place] [facility] BMI 2022-06-13 23:28:00 38.66 kg/m2 [facility] [place] [facility] Oxygen saturation in 2022-06-13 23:28:00 96 /min University of Arterial blood by [facility] Pulse oximetry Branch Systolic blood 2022-05-07 14:46:22 138 mm[Hg] Univer sity of pressure [place] [facility] Diastolic blood 2022-05-07 14:46:22 88 mm[Hg] Unive rsity of pressure [place] [facility] Heart rate 2022-05-07 14:46:22 89 /min [facility] [place] [facility] Respiratory rate 2022-05-07 14:46:22 20 /min Univ ersity of [place] [facility] Oxygen saturation in 2022-05-07 14:46:22 98 /min University of Arterial blood by [facility] Pulse oximetry Branch Body temperature 2022-05-07 14:07:33 37 Ericka Univ ers[facility] [place] [facility] Body height 2022-05-07 13:56:00 162.6 cm [facility] [place] [facility] Body weight 2022-05-07 13:56:00 108.863 kg [facility] [place] [facility] BMI 2022-05-07 13:56:00 41.20 kg/m2 [facility] [place] [facility] Systolic blood 2022-02-19 14:13:00 156 mm[Hg] Univer sity of pressure [place] [facility] Diastolic blood 2022-02-19 14:13:00 94 mm[Hg] Unive rsity of pressure [place] [facility] Heart rate 2022-02-19 14:13:00 111 /min [facility] [place] [facility] Body temperature 2022-02-19 14:13:00 37.11 Ericka [facility] [place] [facility] Respiratory rate 2022-02-19 14:13:00 22 /min Univ ersity [facility] [place] [facility] Body height 2022-02-19 14:13:00 162.6 cm [facility] [place] [facility] Body weight 2022-02-19 14:13:00 104.327 kg [facility] [place] [facility] BMI 2022-02-19 14:13:00 39.48 kg/m2 [facility] [place] [facility] Oxygen saturation in 2022-02-19 14:13:00 99 /min University of Arterial blood by [facility] [place] [facility] Pulse oximetry Branch Systolic blood 2021-11-29 22:40:00 116 mm[Hg] Univer sity of pressure [place] [facility] Diastolic blood 2021-11-29 22:40:00 85 mm[Hg] Unive rsity of pressure [place] [facility] Heart rate 2021-11-29 22:40:00 87 /min [facility] [place] [facility] Body temperature 2021-11-29 22:40:00 37.28 Ericka [facility] [place] [facility] Respiratory rate 2021-11-29 22:40:00 16 /min Univ ers[facility] [place] [facility] Body height 2021-11-29 22:40:00 162.6 cm [facility] Body weight 2021-11-29 22:40:00 103.874 kg [facility] BMI 2021-11-29 22:40:00 39.31 kg/m2 [facility] Oxygen saturation in 2021-11-29 22:40:00 98 /min University of Arterial blood by [facility] [place] [facility] Pulse oximetry Branch Height 2021-04-23 00:58:00 [...] 15:16:33 119 mm[Hg] Univer sity of pressure Beny Chan [facility] Diastolic blood 2021-10-26 15:16:33 87 mm[Hg] Unive rsity of pressure [place] [facility] Heart rate 2021-10-26 15:16:33 92 /min [facility] Respiratory rate 2021-10-26 15:16:33 16 /min [facility] Oxygen saturation in 2021-10-26 15:16:33 98 /min University Arterial blood by Beny muñoz Pulse oximetry [facility] Body Temperature 2021-04-23 00:58:00 97.8 [degF] On license of [facility] (LUF/ABI/SA) Pulse Rate 2021-04-23 00:58:00 116 /min [facility] (LUF/ABI/SA) Respiratory Rate 2021-04-23 00:58:00 18 /min On license of [facility] (LUF/ABI/SA) O2% BldC Oximetry 2021-04-23 00:58:00 99 % On license of [facility] (LUF/ABI/SA) BP Systolic 2021-04-23 00:58:00 111 mm[Hg] [facility] (LUF/ABI/SA) BP Diastolic 2021-04-23 00:58:00 77 mm[Hg] [facility] (F/ABI/SA) Height 2021-04-23 00:58:00 64 [in_i] [facility] (F/ABI/SA) Weight 2021-04-23 00:58:00 105.1 kg [facility] (LUF/ABI/SA) BMI (Body Mass 2021-04-23 00:58:00 40 kg/m2 [facility] (LUF/ABI/SA) Body Temperature 2021-03-24 10:53:00 98.6 [degF] On license of [facility] (LUF/ABI/SA) Pulse Rate 2021-03-24 10:53:00 87 /min [facility] (F/ABI/SA) Respiratory Rate 2021-03-24 10:53:00 18 /min On license of [facility] (LUF/ABI/SA) O2% BldC Oximetry 2021-03-24 10:53:00 97 % On license of [facility] (LUF/ABI/SA) BP Systolic 2021-03-24 10:53:00 120 mm[Hg] [facility] (LUF/ABI/SA) BP Diastolic 2021-03-24 10:53:00 86 mm[Hg] [facility] (LUF/ABI/SA) Height 2021-03-24 10:53:00 64 [in_i] [facility] (LUF/ABI/SA) Weight 2021-03-24 10:53:00 105 kg [facility] (LUF/ABI/SA) BMI (Body Mass 2021-03-24 10:53:00 40 kg/m2 [facility] (LUF/ABI/SA) Body Temperature 2021-03-10 10:55:00 98.4 [degF] On license of [facility] (LUF/ABI/SA) Pulse Rate 2021-03-10 10:55:00 85 /min [facility] (LUF/ABI/SA) Respiratory Rate 2021-03-10 10:55:00 20 /min On license of [facility] (F/ABI/SA) O2% BldC Oximetry 2021-03-10 10:55:00 100 % On license of [facility] (LUF/ABI/SA) BP Systolic 2021-03-10 10:55:00 140 mm[Hg] [facility] (LUF/ABI/SA) BP Diastolic 2021-03-10 10:55:00 98 mm[Hg] [facility] (LUF/ABI/SA) Height 2021-03-10 10:55:00 64 [in_i] [facility] (LUF/ABI/SA) Weight 2021-03-10 10:55:00 105.2 kg [facility] (F/ABI/SA) BMI (Body Mass 2021-03-10 10:55:00 40 kg/m2 [facility] (LUF/ABI/SA) Pulse Rate 2021-02-23 12:32:00 67 /min [facility] (LUF/ABI/SA) O2% BldC Oximetry 2021-02-23 12:32:00 98 % On license of [facility] (LUF/ABI/SA) BP Systolic 2021-02-23 12:32:00 112 mm[Hg] [facility] (LUF/ABI/SA) BP Diastolic 2021-02-23 12:32:00 70 mm[Hg] [facility] (LUF/ABI/SA) Heart Rate 2021-02-23 11:16:00 64 /min [facility] (LUF/ABI/SA) Respiratory Rate 2021-02-23 11:16:00 14 /min On license of [facility] (LUF/ABI/SA) Body Temperature 2021-02-23 08:24:00 98.1 [degF] On license of [facility] (F/ABI/SA) Height 2021-02-23 08:24:00 64 [in_i] [facility] (F/ABI/SA) Weight 2021-02-23 08:24:00 110 kg [facility] (F/ABI/SA) BMI (Body Mass 2021-02-23 08:24:00 41.9 kg/m2 [facility] (LUF/ABI/SA) Heart Rate 2021-01-10 01:46:00 93 /min [facility] (LUF/ABI/SA) Pulse Rate 2021-01-10 01:46:00 95 /min [facility] (F/ABI/SA) Respiratory Rate 2021-01-10 01:46:00 16 /min On license of [facility] (F/ABI/SA) O2% BldC Oximetry 2021-01-10 01:46:00 97 % On license of [facility] (LUF/ABI/SA) BP Systolic 2021-01-10 01:46:00 103 mm[Hg] [facility] (LUF/ABI/SA) BP Diastolic 2021-01-10 01:46:00 71 mm[Hg] [facility] (LUF/ABI/SA) Weight 2021-01-10 00:53:00 102 kg [facility] (F/ABI/SA) Body Temperature 2021-01-10 00:47:00 98.6 [degF] On license of [facility] (LUF/ABI/SA) Pulse Rate 2020-12-12 14:20:00 87 /min [facility] (LUF/ABI/SA) O2% BldC Oximetry 2020-12-12 14:20:00 98 % On license of [facility] (LUF/ABI/SA) BP Systolic 2020-12-12 14:20:00 128 mm[Hg] [facility] (LUF/BAI/SA) BP Diastolic 2020-12-12 14:20:00 86 mm[Hg] [facility] (LUF/ABI/SA) Body Temperature 2020-12-12 12:39:00 98.9 [degF] On license of [facility] (LUF/ABI/SA) Respiratory Rate 2020-12-12 12:39:00 20 /min On license of [facility] (LUF/ABI/SA) Weight 2020-12-12 12:39:00 102 kg [facility] (LUF/ABI/SA) Body Temperature 2020-12-08 10:27:00 98.6 [degF] On license of [facility] (LUF/ABI/SA) Pulse Rate 2020-12-08 10:27:00 79 /min [facility] (LUF/ABI/SA) Respiratory Rate 2020-12-08 10:27:00 16 /min On license of [facility] (LUF/ABI/SA) O2% BldC Oximetry 2020-12-08 10:27:00 99 % On license of [facility] (LUF/ABI/SA) BP Systolic 2020-12-08 10:27:00 111 mm[Hg] [facility] (LUF/ABI/SA) BP Diastolic 2020-12-08 10:27:00 57 mm[Hg] [facility] (LUF/ABI/SA) Weight 2020-12-08 10:27:00 103 kg [facility] (LUF/ABI/SA) Body Temperature 2020-11-25 00:27:00 97.9 [degF] On license of [facility] (LUF/ABI/SA) Pulse Rate 2020-11-25 00:27:00 82 /min [facility] (LUF/ABI/SA) Respiratory Rate 2020-11-25 00:27:00 17 /min On license of [facility] (F/ABI/SA) O2% BldC Oximetry 2020-11-25 00:27:00 98 % On license of [facility] (LUF/ABI/SA) BP Systolic 2020-11-25 00:27:00 109 mm[Hg] [facility] (LUF/ABI/SA) BP Diastolic 2020-11-25 00:27:00 62 mm[Hg] [facility] (LUF/ABI/SA) Heart Rate 2020-11-21 09:30:00 75 /min [facility] (LUF/ABI/SA) Respiratory Rate 2020-11-21 09:30:00 14 /min On license of [facility] (LUF/ABI/SA) BP Systolic 2020-11-21 09:30:00 120 mm[Hg] [facility] (LUF/ABI/SA) BP Diastolic 2020-11-21 09:30:00 76 mm[Hg] [facility] (LUF/ABI/SA) Body Temperature 2020-11-21 07:15:00 98.1 [degF] On license of [facility] (F/ABI/SA) Pulse Rate 2020-11-21 07:15:00 103 /min [facility] (F/ABI/SA) O2% BldC Oximetry 2020-11-21 07:15:00 100 % On license of [facility] (F/ABI/SA) Height 2020-11-21 07:15:00 64 [in_i] [facility] (F/ABI/SA) Weight 2020-11-21 07:15:00 103.1 kg [facility] (F/ABI/SA) BMI (Body Mass 2020-11-21 07:15:00 39.2 kg/m2 [facility] (F/ABI/SA) Heart Rate 2020-11-14 13:30:00 69 /min [facility] (LUF/ABI/SA) Pulse Rate 2020-11-14 13:30:00 70 /min [facility] (LUF/ABI/SA) Respiratory Rate 2020-11-14 13:30:00 10 /min On license of [facility] (F/ABI/SA) O2% BldC Oximetry 2020-11-14 13:30:00 96 % On license of [facility] (LUF/ABI/SA) BP Systolic 2020-11-14 13:30:00 103 mm[Hg] [facility] (LUF/ABI/SA) BP Diastolic 2020-11-14 13:30:00 77 mm[Hg] [facility] (LUF/ABI/SA) Body Temperature 2020-11-14 09:47:00 97.4 [degF] On license of [facility] (F/ABI/SA) Weight 2020-11-14 09:47:00 103 kg [facility] (F/ABI/SA) Body Temperature 2020-11-08 08:32:00 98.1 [degF] On license of [facility] (F/ABI/SA) Pulse Rate 2020-11-08 08:32:00 82 /min [facility] (F/ABI/SA) Respiratory Rate 2020-11-08 08:32:00 20 /min On license of [facility] (F/ABI/SA) O2% BldC Oximetry 2020-11-08 08:32:00 100 % On license of [facility] (F/ABI/SA) BP Systolic 2020-11-08 08:32:00 129 mm[Hg] [facility] (F/ABI/SA) BP Diastolic 2020-11-08 08:32:00 72 mm[Hg] [facility] (F/ABI/SA) Height 2020-11-08 08:32:00 64 [in_i] [facility] ([facility]/ABI/SA) Weight 2020-11-08 08:32:00 103.1 kg [facility] (F/ABI/SA) BMI (Body Mass 2020-11-08 08:32:00 39.2 kg/m2 [facility] (LUF/ABI/SA) Body Temperature 2020-11-01 00:58:00 98.7 [degF] On license of [facility] (LUF/ABI/SA) Pulse Rate 2020-11-01 00:58:00 104 /min [facility] (LUF/ABI/SA) Respiratory Rate 2020-11-01 00:58:00 20 /min On license of [facility] (LUF/ABI/SA) O2% BldC Oximetry 2020-11-01 00:58:00 99 % On license of [facility] (LUF/ABI/SA) BP Systolic 2020-11-01 00:58:00 133 mm[Hg] [facility] (LUF/ABI/SA) BP Diastolic 2020-11-01 00:58:00 101 mm[Hg] [facility] (LUF/ABI/SA) Height 2020-11-01 00:53:00 65 [in_i] [facility] (LUF/ABI/SA) Weight 2020-11-01 00:53:00 103 kg [facility] (LUF/ABI/SA) BMI (Body Mass 2020-11-01 00:53:00 37.8 kg/m2 [facility] (LUF/ABI/SA) Body Temperature 2020-10-04 23:51:00 98 [degF] On license of [facility] (LUF/ABI/SA) Pulse Rate 2020-10-04 23:51:00 96 /min [facility] (LUF/ABI/SA) Respiratory Rate 2020-10-04 23:51:00 20 /min On license of [facility] (LUF/ABI/SA) O2% BldC Oximetry 2020-10-04 23:51:00 98 % On license of [facility] (LUF/ABI/SA) BP Systolic 2020-10-04 23:51:00 125 mm[Hg] [facility] (LUF/ABI/SA) BP Diastolic 2020-10-04 23:51:00 73 mm[Hg] [facility] (LUF/ABI/SA) Height 2020-10-04 23:47:00 65 [in_i] [facility] (LUF/ABI/SA) Weight 2020-10-04 23:47:00 102.6 kg [facility] (LUF/ABI/SA) BMI (Body Mass 2020-10-04 23:47:00 37.6 kg/m2 [facility] Index) [facility] (LUF/ABI/SA) Body Temperature 2020-09-18 01:44:00 98.3 [degF] On license of [facility] (LUF/ABI/SA) Pulse Rate 2020-09-18 01:44:00 116 /min [facility] (LUF/ABI/SA) Respiratory Rate 2020-09-18 01:44:00 20 /min On license of [facility] (F/ABI/SA) O2% BldC Oximetry 2020-09-18 01:44:00 99 % On license of [facility] (LUF/ABI/SA) BP Systolic 2020-09-18 01:44:00 127 mm[Hg] [facility] (LUF/ABI/SA) BP Diastolic 2020-09-18 01:44:00 83 mm[Hg] [facility] (F/ABI/SA) Height 2020-09-18 01:40:00 64 [in_i] [facility] (F/ABI/SA) Weight 2020-09-18 01:40:00 102.8 kg [facility] (F/ABI/SA) BMI (Body Mass 2020-09-18 01:40:00 39.1 kg/m2 [facility]) [facility] (LUF/ABI/SA) Pulse Rate 2020-09-12 02:16:00 88 /min [facility] (F/ABI/SA) O2% BldC Oximetry 2020-09-12 02:16:00 98 % On license of [facility] (F/ABI/SA) BP Systolic 2020-09-12 02:16:00 113 mm[Hg] [facility] (LUF/ABI/SA) BP Diastolic 2020-09-12 02:16:00 64 mm[Hg] [facility] (F/ABI/SA) Body Temperature 2020-09-12 00:56:00 97.9 [degF] On license of [facility] (F/ABI/SA) Respiratory Rate 2020-09-12 00:56:00 18 /min On license of [facility] (LUF/ABI/SA) Height 2020-09-12 00:50:00 65 [in_i] [facility] (LUF/ABI/SA) Weight 2020-09-12 00:50:00 104.5 kg [facility] (LUF/ABI/SA) BMI (Body Mass 2020-09-12 00:50:00 38.3 kg/m2 [facility] Index) [facility] (LUF/ABI/SA) Pulse Rate 2020-08-22 03:16:00 100 /min [facility] (LUF/ABI/SA) O2% BldC Oximetry 2020-08-22 03:16:00 95 % On license of [facility] (LUF/ABI/SA) BP Systolic 2020-08-22 03:16:00 129 mm[Hg] [facility] (LUF/ABI/SA) BP Diastolic 2020-08-22 03:16:00 88 mm[Hg] [facility] (LUF/ABI/SA) Body Temperature 2020-08-22 01:35:00 98.4 [degF] On license of [facility] (LUF/ABI/SA) Respiratory Rate 2020-08-22 01:35:00 20 /min On license of [facility] (LUF/ABI/SA) Height 2020-08-22 01:35:00 64 [in_i] [facility] (LUF/ABI/SA) Weight 2020-08-22 01:35:00 102 kg [facility] (LUF/ABI/SA) BMI (Body Mass 2020-08-22 01:35:00 38.8 kg/m2 [facility] Index) [facility] (LUF/ABI/SA) Pulse Rate 2020-08-06 03:31:00 83 /min [facility] (F/ABI/SA) O2% BldC Oximetry 2020-08-06 03:31:00 96 % On license of [facility] (LUF/ABI/SA) BP Systolic 2020-08-06 03:31:00 127 mm[Hg] [facility] (LUF/ABI/SA) BP Diastolic 2020-08-06 03:31:00 82 mm[Hg] [facility] (LUF/ABI/SA) Body Temperature 2020-08-06 01:45:00 98 [degF] On license of [facility] (F/ABI/SA) Respiratory Rate 2020-08-06 01:45:00 20 /min On license of [facility] (F/ABI/SA) Height 2020-08-06 01:39:00 66 [in_i] [facility] (F/ABI/SA) Weight 2020-08-06 01:39:00 104.2 kg [facility] (F/ABI/SA) BMI (Body Mass 2020-08-06 01:39:00 37.3 kg/m2 [facility] (LUF/ABI/SA) Pulse Rate 2020-07-19 11:16:00 67 /min [facility] (F/ABI/SA) O2% BldC Oximetry 2020-07-19 11:16:00 94 % On license of [facility] (F/ABI/SA) BP Systolic 2020-07-19 11:16:00 101 mm[Hg] [facility] (LUF/ABI/SA) BP Diastolic 2020-07-19 11:16:00 63 mm[Hg] [facility] (LUF/ABI/SA) Body Temperature 2020-07-19 07:50:00 98 [degF] On license of [facility] (F/ABI/SA) Respiratory Rate 2020-07-19 07:50:00 18 /min On license of [facility] (F/ABI/SA) Weight 2020-07-19 07:50:00 100 kg [facility] (F/ABI/SA) Heart Rate 2020-07-05 04:46:00 80 /min [facility] (F/ABI/SA) Respiratory Rate 2020-07-05 04:46:00 15 /min On license of [facility] (F/ABI/SA) BP Systolic 2020-07-05 04:46:00 134 mm[Hg] [facility] (F/ABI/SA) BP Diastolic 2020-07-05 04:46:00 60 mm[Hg] [facility] (LUF/ABI/SA) Body Temperature 2020-07-05 02:57:00 98 [degF] On license of [facility] (LUF/ABI/SA) Pulse Rate 2020-07-05 02:57:00 82 /min [facility] (LUF/ABI/SA) O2% BldC Oximetry 2020-07-05 02:57:00 99 % On license of [facility] (LUF/ABI/SA) Height 2020-07-05 02:50:00 65 [in_i] [facility] (LUF/ABI/SA) Weight 2020-07-05 02:50:00 102.1 kg [facility] (LUF/ABI/SA) BMI (Body Mass 2020-07-05 02:50:00 37.5 kg/m2 [facility] Index) [facility] (LUF/ABI/SA) Body Temperature 2020-06-07 13:38:00 98.5 [degF] On license of [facility] (LUF/ABI/SA) Pulse Rate 2020-06-07 13:38:00 95 /min [facility] (LUF/ABI/SA) Respiratory Rate 2020-06-07 13:38:00 20 /min On license of [facility] (LUF/ABI/SA) O2% BldC Oximetry 2020-06-07 13:38:00 97 % On license of [facility] (LUF/ABI/SA) BP Systolic 2020-06-07 13:38:00 129 mm[Hg] [facility] (LUF/ABI/SA) BP Diastolic 2020-06-07 13:38:00 73 mm[Hg] [facility] (LUF/ABI/SA) Height 2020-06-07 13:38:00 64 [in_i] [facility] (LUF/ABI/SA) Weight 2020-06-07 13:38:00 99.79 kg [facility] (LUF/ABI/SA) BMI (Body Mass 2020-06-07 13:38:00 38 kg/m2 [facility] Index) [facility] (LUF/ABI/SA) Body Temperature 2020-05-31 09:45:00 99.6 [degF] On license of [facility] (LUF/ABI/SA) Pulse Rate 2020-05-31 09:45:00 86 /min [facility] (LUF/ABI/SA) Respiratory Rate 2020-05-31 09:45:00 18 /min On license of [facility] (LUF/ABI/SA) O2% BldC Oximetry 2020-05-31 09:45:00 98 % On license of [facility] (LUF/ABI/SA) BP Systolic 2020-05-31 09:45:00 118 mm[Hg] [facility] (LUF/ABI/SA) BP Diastolic 2020-05-31 09:45:00 78 mm[Hg] [facility] (LUF/ABI/SA) Height 2020-05-31 09:45:00 64 [in_i] [facility] (LUF/ABI/SA) Weight 2020-05-31 09:45:00 99.79 kg [facility] (LUF/ABI/SA) BMI (Body Mass 2020-05-31 09:45:00 38 kg/m2 [facility] (LUF/ABI/SA) Heart Rate 2020-04-25 20:01:00 69 /min [facility] (LUF/ABI/SA) Pulse Rate 2020-04-25 20:01:00 71 /min [facility] (LUF/ABI/SA) Respiratory Rate 2020-04-25 20:01:00 18 /min On license of [facility] (LUF/ABI/SA) O2% BldC Oximetry 2020-04-25 20:01:00 100 % On license of [facility] (LUF/ABI/SA) BP Systolic 2020-04-25 20:01:00 126 mm[Hg] [facility] (LUF/ABI/SA) BP Diastolic 2020-04-25 20:01:00 86 mm[Hg] [facility] (LUF/ABI/SA) Body Temperature 2020-04-25 16:50:00 98.4 [degF] On license of [facility] (LUF/ABI/SA) Height 2020-04-25 16:50:00 64 [in_i] [facility] (LUF/ABI/SA) Weight 2020-04-25 16:50:00 220 [lb_av] [facility] (LUF/ABI/SA) BMI (Body Mass 2020-04-25 16:50:00 38 kg/m2 [facility] Index) [facility] (LUF/ABI/SA) Heart Rate 2020-03-20 18:18:00 112 /min [facility] (LUF/ABI/SA) Pulse Rate 2020-03-20 18:16:00 93 /min [facility] (LUF/ABI/SA) O2% BldC Oximetry 2020-03-20 18:16:00 92 % On license of [facility] (LUF/ABI/SA) BP Systolic 2020-03-20 18:16:00 127 mm[Hg] [facility] (LUF/ABI/SA) BP Diastolic 2020-03-20 18:16:00 85 mm[Hg] [facility] (LUF/ABI/SA) Body Temperature 2020-03-20 17:17:00 99.2 [degF] On license of [facility] (LUF/ABI/SA) Respiratory Rate 2020-03-20 17:17:00 19 /min On license of [facility] (LUF/ABI/SA) Height 2020-03-20 17:17:00 64 [in_i] [facility] (LUF/ABI/SA) Weight 2020-03-20 17:17:00 106.9 kg [facility] (LUF/ABI/SA) BMI (Body Mass 2020-03-20 17:17:00 40.7 kg/m2 [facility]) [facility] (LUF/ABI/SA) Respiratory Rate 2020-03-17 10:33:00 16 /min On license of [facility] (LUF/ABI/SA) Body Temperature 2020-03-17 07:54:00 97.9 [degF] On license of [facility] (LUF/ABI/SA) Pulse Rate 2020-03-17 07:54:00 83 /min [facility] (LUF/ABI/SA) O2% BldC Oximetry 2020-03-17 07:54:00 96 % On license of [facility] (LUF/ABI/SA) BP Systolic 2020-03-17 07:54:00 107 mm[Hg] [facility] (LUF/ABI/SA) BP Diastolic 2020-03-17 07:54:00 75 mm[Hg] [facility] (LUF/ABI/SA) Weight 2020-03-17 00:09:00 105.6 kg [facility] (LUF/ABI/SA) Heart Rate 2020-03-13 15:46:00 81 /min [facility] (LUF/ABI/SA) Height 2020-03-13 15:31:00 64 [in_i] [facility] (LUF/ABI/SA) Body Temperature 2020-03-02 15:20:00 98.6 [degF] On license of [facility] (LUF/ABI/SA) Pulse Rate 2020-03-02 15:20:00 86 /min [facility] (LUF/ABI/SA) Respiratory Rate 2020-03-02 15:20:00 18 /min On license of [facility] (LUF/ABI/SA) O2% BldC Oximetry 2020-03-02 15:20:00 99 % On license of [facility] (LUF/ABI/SA) BP Systolic 2020-03-02 15:20:00 131 mm[Hg] [facility] (LUF/ABI/SA) BP Diastolic 2020-03-02 15:20:00 85 mm[Hg] [facility] (LUF/ABI/SA) Height 2020-03-01 10:54:00 64 [in_i] [facility] (LUF/ABI/SA) Weight 2020-03-01 10:54:00 102 kg [facility] (LUF/ABI/SA) BMI (Body Mass 2020-03-01 10:54:00 38.8 kg/m2 [facility] (LUF/ABI/SA) Respiratory Rate 2020-02-27 07:47:00 16 /min On license of [facility] (LUF/ABI/SA) Body Temperature 2020-02-27 07:32:00 98.2 [degF] On license of [facility] (LUF/ABI/SA) Pulse Rate 2020-02-27 07:32:00 94 /min [facility] (LUF/ABI/SA) O2% BldC Oximetry 2020-02-27 07:32:00 95 % On license of [facility] (LUF/ABI/SA) BP Systolic 2020-02-27 07:32:00 111 mm[Hg] [facility] (LUF/ABI/SA) BP Diastolic 2020-02-27 07:32:00 56 mm[Hg] [facility] (LUF/ABI/SA) Weight 2020-02-26 02:09:00 99.6 kg [facility] (LUF/ABI/SA) Height 2020-02-25 10:03:00 64 [in_i] [facility] (LUF/ABI/SA) Body Temperature 2020-02-25 00:52:00 97.9 [degF] On license of [facility] (LUF/ABI/SA) Pulse Rate 2020-02-25 00:52:00 118 /min [facility] (LUF/ABI/SA) Respiratory Rate 2020-02-25 00:52:00 18 /min On license of [facility] (LUF/ABI/SA) O2% BldC Oximetry 2020-02-25 00:52:00 97 % On license of [facility] (LUF/ABI/SA) BP Systolic 2020-02-25 00:52:00 133 mm[Hg] [facility] (LUF/ABI/SA) BP Diastolic 2020-02-25 00:52:00 67 mm[Hg] [facility] (LUF/ABI/SA) Height 2020-02-25 00:47:00 64 [in_i] [facility] (LUF/ABI/SA) Weight 2020-02-25 00:47:00 103.4 kg [facility] (LUF/ABI/SA) BMI (Body Mass 2020-02-25 00:47:00 39.3 kg/m2 [facility] (LUF/ABI/SA) Body Temperature 2020-01-25 11:32:00 98.4 [degF] On license of [facility] (LUF/ABI/SA) Pulse Rate 2020-01-25 11:32:00 81 /min [facility] (LUF/ABI/SA) Respiratory Rate 2020-01-25 11:32:00 14 /min On license of [facility] (LUF/ABI/SA) O2% BldC Oximetry 2020-01-25 11:32:00 98 % On license of [facility] (LUF/ABI/SA) BP Systolic 2020-01-25 11:32:00 139 mm[Hg] [facility] (LUF/ABI/SA) BP Diastolic 2020-01-25 11:32:00 89 mm[Hg] [facility] (LUF/ABI/SA) Height 2020-01-25 11:32:00 64 [in_i] [facility] (LUF/ABI/SA) Weight 2020-01-25 11:32:00 100.5 kg [facility] (LUF/ABI/SA) BMI (Body Mass 2020-01-25 11:32:00 38.2 kg/m2 [facility] (LUF/ABI/SA) Heart Rate 2019-11-24 04:16:00 84 /min [facility] (LUF/ABI/SA) Pulse Rate 2019-11-24 04:16:00 90 /min [facility] (LUF/ABI/SA) Respiratory Rate 2019-11-24 04:16:00 26 /min On license of [facility] (LUF/ABI/SA) O2% BldC Oximetry 2019-11-24 04:16:00 98 % On license of [facility] (LUF/ABI/SA) BP Systolic 2019-11-24 04:16:00 106 mm[Hg] [facility] (LUF/ABI/SA) BP Diastolic 2019-11-24 04:16:00 69 mm[Hg] [facility] (LUF/ABI/SA) Body Temperature 2019-11-24 00:54:00 98.4 [degF] On license of [facility] (LUF/ABI/SA) Height 2019-11-24 00:49:00 65 [in_i] [facility] (LUF/ABI/SA) Weight 2019-11-24 00:49:00 103 kg [facility] (LUF/ABI/SA) BMI (Body Mass 2019-11-24 00:49:00 37.8 kg/m2 [facility]) [facility] (LUF/ABI/SA) Heart Rate 2019-10-07 22:54:00 83 /min [facility] (LUF/ABI/SA) Respiratory Rate 2019-10-07 22:54:00 14 /min On license of [facility] (LUF/ABI/SA) Pulse Rate 2019-10-07 22:31:00 89 /min [facility] (LUF/ABI/SA) O2% BldC Oximetry 2019-10-07 22:31:00 97 % On license of [facility] (LUF/ABI/SA) BP Systolic 2019-10-07 21:16:00 127 mm[Hg] [facility] (LUF/ABI/SA) BP Diastolic 2019-10-07 21:16:00 85 mm[Hg] [facility] (LUF/ABI/SA) Height 2019-10-07 20:41:00 64 [in_i] [facility] (LUF/ABI/SA) Weight 2019-10-07 20:41:00 100.2 kg [facility] (LUF/ABI/SA) BMI (Body Mass 2019-10-07 20:41:00 38.1 kg/m2 [facility]) [facility] (LUF/ABI/SA) Pulse Rate 2019-09-20 04:16:00 96 /min [facility] (LUF/ABI/SA) Respiratory Rate 2019-09-20 04:16:00 9 /min On license of [facility] (LUF/ABI/SA) O2% BldC Oximetry 2019-09-20 04:16:00 96 % On license of [facility] (LUF/ABI/SA) BP Systolic 2019-09-20 04:16:00 97 mm[Hg] [facility] (LUF/ABI/SA) BP Diastolic 2019-09-20 04:16:00 76 mm[Hg] [facility] (LUF/ABI/SA) Body Temperature 2019-09-20 00:44:00 98 [degF] On license of [facility] (LUF/ABI/SA) Height 2019-09-20 00:39:00 65 [in_i] [facility] (LUF/ABI/SA) Weight 2019-09-20 00:39:00 101.9 kg [facility] (LUF/ABI/SA) BMI (Body Mass 2019-09-20 00:39:00 37.4 kg/m2 [facility]) [facility] (LUF/ABI/SA) Pulse Rate 2019-08-17 04:31:00 81 /min [facility] (LUF/ABI/SA) Respiratory Rate 2019-08-17 04:31:00 13 /min On license of [facility] (LUF/ABI/SA) O2% BldC Oximetry 2019-08-17 04:31:00 97 % On license of [facility] (LUF/ABI/SA) BP Systolic 2019-08-17 04:31:00 136 mm[Hg] [facility] (LUF/ABI/SA) BP Diastolic 2019-08-17 04:31:00 75 mm[Hg] [facility] (LUF/ABI/SA) Body Temperature 2019-08-17 02:23:00 97.6 [degF] On license of [facility] (F/ABI/SA) Height 2019-08-17 02:19:00 64 [in_i] [facility] (LUF/ABI/SA) Weight 2019-08-17 02:19:00 100.6 kg [facility] (LUF/ABI/SA) BMI (Body Mass 2019-08-17 02:19:00 38.3 kg/m2 [facility]) [facility] (LUF/ABI/SA) Pulse Rate 2018-12-07 02:33:00 79 /min [facility] (LUF/ABI/SA) Respiratory Rate 2018-12-07 02:33:00 15 /min On license of [facility] (F/ABI/SA) O2% BldC Oximetry 2018-12-07 02:33:00 96 % On license of [facility] (LUF/ABI/SA) BP Systolic 2018-12-07 02:33:00 120 mm[Hg] [facility] (LUF/ABI/SA) BP Diastolic 2018-12-07 02:33:00 76 mm[Hg] [facility] (LUF/ABI/SA) Body Temperature 2018-12-07 01:10:00 98.2 F On license of [facility] (LUF/ABI/SA) Height 2018-12-07 01:10:00 64 in [facility] (LUF/ABI/SA) Weight Measured 2018-12-07 01:10:00 218.25 lbs [facility] S [facility] (LUF/ABI/SA) BMI (Body Mass 2018-12-07 01:10:00 37.7 kg/m2 [facility] Index) [facility] (LUF/ABI/SA) Pulse Rate 2018-09-30 19:40:00 70 /min [facility] (LUF/ABI/SA) Respiratory Rate 2018-09-30 19:40:00 21 /min On license of [facility] (LUF/ABI/SA) O2% BldC Oximetry 2018-09-30 19:40:00 100 % On license of [facility] (LUF/ABI/SA) BP Systolic 2018-09-30 19:40:00 124 mm[Hg] [facility] (LUF/ABI/SA) BP Diastolic 2018-09-30 19:40:00 88 mm[Hg] [facility] (LUF/ABI/SA) Body Temperature 2018-09-30 19:23:00 99.3 F On license of [facility] (LUF/ABI/SA) Height 2018-09-30 19:23:00 66 in [facility] (LUF/ABI/SA) Weight Measured 2018-09-30 19:23:00 212.52 lbs [facility] S jaenl [facility] (LUF/ABI/SA) BMI (Body Mass 2018-09-30 19:23:00 34.5 kg/m2 [facility] Index) [facility] (LUF/ABI/SA) Body Temperature 2018-09-01 13:59:00 98 F On license of [facility] (LUF/ABI/SA) Pulse Rate 2018-09-01 12:15:00 74 /min [facility] (LUF/ABI/SA) Respiratory Rate 2018-09-01 12:15:00 16 /min On license of [facility] (LUF/ABI/SA) O2% BldC Oximetry 2018-09-01 12:15:00 98 % On license of [facility] (LUF/ABI/SA) BP Systolic 2018-09-01 12:15:00 131 mm[Hg] [facility] (LUF/ABI/SA) BP Diastolic 2018-09-01 12:15:00 78 mm[Hg] [facility] (LUF/ABI/SA) Height 2018-09-01 09:16:00 64 in [facility] (LUF/ABI/SA) Weight Measured 2018-09-01 09:16:00 214.24 lbs [facility] S [facility] (LUF/ABI/SA) BMI (Body Mass 2018-09-01 09:16:00 37 kg/m2 [facility]) [facility] (LUF/ABI/SA) Body Temperature 2018-05-13 10:58:00 99 F On license of [facility] (LUF/ABI/SA) Pulse Rate 2018-05-13 10:58:00 97 /min [facility] (F/ABI/SA) Respiratory Rate 2018-05-13 10:58:00 18 /min On license of [facility] (F/ABI/SA) O2% BldC Oximetry 2018-05-13 10:58:00 98 % On license of [facility] (LUF/ABI/SA) BP Systolic 2018-05-13 10:58:00 131 mm[Hg] [facility] (LUF/ABI/SA) BP Diastolic 2018-05-13 10:58:00 88 mm[Hg] [facility] (F/ABI/SA) Height 2018-05-13 10:58:00 64 in [facility] (F/ABI/SA) Weight Measured 2018-05-13 10:58:00 207.23 lbs [facility] S [facility] (LUF/ABI/SA) BMI (Body Mass 2018-05-13 10:58:00 35.8 [facility]) [facility] (LUF/ABI/SA) Body Temperature 2017-12-24 08:04:00 98.7 F On license of [facility] (LUF/ABI/SA) Respiratory Rate 2017-12-24 08:04:00 18 /min On license of [facility] (F/ABI/SA) O2% BldC Oximetry 2017-12-24 08:04:00 98 % On license of [facility] (LUF/ABI/SA) BP Systolic 2017-12-24 08:04:00 126 mm[Hg] [facility] (LUF/ABI/SA) BP Diastolic 2017-12-24 08:04:00 86 mm[Hg] [facility] (LUF/ABI/SA) Weight Measured 2017-12-24 08:04:00 207.23 lbs [facility] (F/ABI/SA) Body Temperature 2017-06-20 23:28:00 97.4 F On license of [facility] (LUF/ABI/SA) Respiratory Rate 2017-06-20 23:28:00 20 /min On license of [facility] (F/ABI/SA) O2% BldC Oximetry 2017-06-20 23:28:00 99 % On license of [facility] (LUF/ABI/SA) BP Systolic 2017-06-20 23:28:00 107 mm[Hg] [facility] (F/ABI/SA) BP Diastolic 2017-06-20 23:28:00 76 mm[Hg] [facility] (LUF/ABI/SA) Height 2017-06-20 23:28:00 64 in [facility] (F/ABI/SA) Weight Measured 2017-06-20 23:28:00 217.15 lbs [facility] (LUF/ABI/SA) BMI (Body Mass 2017-06-20 23:28:00 37.5 [facility] (LUF/ABI/SA) Procedures Procedure Date / Time Performing Clinician Source Performed CT ABDOMEN PELVIS W 2022-11-21 05:31:00 Suzanne Lopez [facility] POCT TEST 2022-11-21 04:40:00 [facility] LIPASE 2022-11-21 03:35:00 Suzanne Lopez [facility] COMP. METABOLIC PANEL 2022-11-21 03:35:00 Suzanne Lopez [facility] ([id number]) [facility] CBC WITH DIFF 2022-11-21 03:35:00 Suzanne Lopez [facility] URINALYSIS 2022-11-21 03:35:00 Suzanne Lopez [facility] CONSENT/REFUSAL FOR 2022-11-21 02:48:21 Doctor Unassigned, No [facility]ATMENT Name Medical Branch LIPASE 2022-10-26 03:56:00 Valentin Box [facility] COMP. METABOLIC PANEL 2022-10-26 03:56:00 Valentin Box [facility] ([id number]) Medical Branch CBC WITH DIFF 2022-10-26 03:56:00 Valentin Box [facility] URINE DRUG (IMMUNOASSAY) 2022-10-26 03:50:00 Valentin Box [facility] DRUG Medical [facility] SCREEN URINALYSIS 2022-10-26 03:50:00 Valentin Box [facility] CONSENT/REFUSAL FOR 2022-10-26 03:29:08 [facility] Name Medical Branch LIPASE 2022-10-03 05:40:00 [facility] TEST, SERUM 2022-10-03 05:40:00 Montserrat Acosta [facility] COMP. METABOLIC PANEL 2022-10-03 05:40:00 Montserrat Acosta [facility] ([id number]) [facility] CBC WITH DIFF 2022-10-03 05:40:00 Leon [facility] NOTICE OF PRIVACY 2022-10-03 03:10:55 Doctor Unassigned, No [facility] PRACTICES Name [facility] CONSENT/REFUSAL FOR 2022-10-03 03:10:26 Doctor Unassigned, No [facility] DIAGNOSIS AND TREATMENT Name [facility] POCT SARS-COV-2 ANTIGEN 2022-06-13 23:43:00 Magdalene Lucia [facility] (BINAX NOW) Medical [place] CT ABDOMEN PELVIS WO 2022-05-07 15:06:09 Ridge Pagan [facility] CONTRAST [facility] BASIC METABOLIC PANEL 2022-05-07 14:20:00 Ridge Pagan [facility] (NA, K, CL, CO2, GLUCOSE, Medica l Branch BUN, CREATININE, CA) CBC WITH DIFF 2022-05-07 14:20:00 Ridge Pagan [facility] URINALYSIS 2022-05-07 14:20:00 Ridge Pagan [facility] CONSENT/REFUSAL FOR 2022-05-07 13:49:51 Doctor Unassigned, No [facility] DIAGNOSIS AND TREATMENT Name [facility] CT ABDOMEN PELVIS WO 2022-02-19 15:49:34 Steven Trice [facility] CONTRAST Medical Branch LIPASE 2022-02-19 14:26:00 Steven [facility] COMP. METABOLIC PANEL 2022-02-19 14:26:00 Trice [facility] ([id number]) [facility] CBC WITH DIFF 2022-02-19 14:26:00 Steven [facility] URINALYSIS 2022-02-19 14:26:00 Steven [facility] CONSENT/REFUSAL FOR 2022-02-19 14:11:01 Doctor Unassigned, No [facility] TREATMENT Name [facility] POCT MOLECULAR FLU 2021-11-29 22:46:00 Ameena Preston [facility] INS INFUS DEV LT BASILIC 2020-03-15 00:00:[address] [facility] VN PERQ [facility] (LUF/ABI/SA) ULTRASONOGRAPHY LT UP EXT 2020-03-15 00:00:[address] [facility] VNS GUID [facility] (LUF/ABI/SA) ROBOTIC LAP LYSIS OF 2020-03-02 12:56:[address] [facility] ADHESIONS [facility] (LUF/ABI/SA) LAPAROSCOPY ENTEROLYSIS 2020-03-02 00:00:[address] [facility] SEPARATE PROCEDU [facility] (LUF/ABI/SA) COLONOSCOPY FLX DX 2020-02-26 00:00:[address] [facility] kes W/COLLJ SPEC WHEN PFR [facility] (LUF/ABI/SA) ROBOTIC RIGHT 2019-03-21 17:09:[address] [facility] OOPHORECTOMY LUF (Right) Memoria l (LUF/ABI/SA) CYSTO RGP STENT PLACEMENT 2015-04-20 14:01:00 CH I [facility] (LUF/ABI/SA) CYSTO RGP STENT PLACEMENT 2015-04-20 14:01:00 CH I [facility] (LUF/ABI/SA) Hysterectomy On license of [facility] (LUF/ABI/SA) Total thyroidectomy On license of [facility] (LUF/ABI/SA) section On license of [facility] (LUF/ABI/SA) ABDOMINAL ADHESIONS [facility] REMOVED [facility] (LUF/ABI/SA) Extracorporeal shockwave [facility] lithotripsy [facility] (LUF/ABI/SA) MULTIPLE CYSTECTOMYS DONE On license of [facility] (LUF/ABI/SA) MULTIPLE CYSTECTOMYS DONE On license of [facility] (LUF/ABI/SA) ABDOMINAL ADHESIONS [facility] REMOVED [facility] (LUF/ABI/SA) Appendectomy On license of [facility] (F/ABI/SA) Plan of Care Planned Activity Planned Date Details Comments Source Future Scheduled 2022-10-25 COVID-19 Vaccination [facility] [place] Test 11:08:40 (#1) [code = COVID-19 And erson Cancer Vaccination (#1)] Center Future Scheduled 2022-10-10 COVID-19 Vaccination [facility] [place] Test 17:54:08 (#1) [code = COVID-19 And erson Cancer [...] Nba, STLMLC STLMLC Common 08:27:02 Josué 0127 [facility] 2021-07-26 Outpatient Nba, STLMLC STLMLC Common 14:20:31 Josué 1203 [facility] 2021-07-26 Outpatient Nba, STLMLC STLMLC Common 14:05:52 Josué 1027 [facility] 2021-07-26 Outpatient Nba, STLMLC STLMLC Common 12:01:28 Josué 1103 [facility] 2021-07-26 Outpatient Nba, STLMLC STLMLC Common 11:56:42 Josué 1019 [facility] 2021-07-26 Outpatient Nba, STLMLC STLMLC Common 11:49:38 Josué 0928 [facility] 2021-07-26 Outpatient Nba, STLMLC STLMLC Common 11:48:02 Josué 0922 [facility] 2021-07-26 Outpatient Nba, STLMLC STLMLC Common 11:47:47 Josué 0921 [facility] 2021-07-26 Outpatient JEANA Arango [facility] Common 11:42:15 Josué 09Faustino [facility] 2021-07-26 Outpatient JEANA Arango [facility] Common 11:32:09 Josué 0720 [facility] 2022-11-20 2022-11-21 Emergency [facility] [id number] Univers 21:54:00 02:10:[address] [facility] 2022-11-20 2022-11-21 Emergency [facility] [id number] Univers 21:54:00 02:10:00 Suzanne GAONA [id number] ity [facility] 4.2.7.2.686 [facility] [id number] [address] 2022-10-25 2022-10-26 Emergency [facility] [id number] Univers 22:33:00 01:21:00 [facility] 2022-10-25 2022-10-26 Emergency [facility] [id number] Univers 22:33:00 01:21:00 aVlentin GAONA 350.1.13.10 i ty [facility] 4.2.7.2.686 [facility] [id number] [address] 2022-10-02 2022-10-03 Emergency X RIDRAFAEL, [facility] ERT [id number] Univers 22:34:00 02:31:00 CHRISTOPHER it y of [facility] 2022-10-02 2022-10-03 Emergency [facility] [id number] Univers 22:34:00 02:31:00 Montserrat GAONA 350.1.13.10 ity [facility] 4.2.7.2.686 [facility] [id number] [address] 2022-07-22 2022-07-22 Outpatient FOG_Dunn_Wa AOSM AOSM 643 93- Adelia 00:00:00 00:00:00 Jhon [id number] [facility] 2022-07-06 2022-07-06 Outpatient FOG_Dunn_Wa AOSM AOSM 643 Adelia 00:00:00 00:00:00 Jhon [id number] [facility] 2022-06-17 2022-06-17 Outpatient FOG_Dunn_Wa AOSM AOSM 643 Adelia 00:00:00 00:00:00 Jhon [id number] [facility] 2022-06-13 2022-06-[address] [facility] [id number] Univers 17:20:00 17:41:53 [facility] 2022-06-13 2022-06-13 Urgent Magdalene Lucia [facility] [id number] Univers 17:20:00 17:41:53 Care Unknown, Attending HEALTH [id number] ity [facility] 4.2.7.2.686 Jacques as SUE?BLEA [id number] [address] [facility] 2022-06-13 2022-06-13 Telephone [facility] [id number] Univers 00:00:00 00:00:00 [facility] [id number] it y of [place] 4.2.7.2.686 Jacques as SUE?BLEA [id number] [address] [facility] 2022-05-13 2022-05-13 Outpatient FOG_Dunn_Wa AOSM AOSM 643 9319 [place] 00:00:00 00:00:00 Jhon [id number] [facility] 2022-05-07 2022-05-07 Emergency X EJ INJADE ERT [id number] Univers 07:57:00 09:45:[address] [facility] 2022-05-07 2022-05-07 Emergency Ej [facility] [id number] [id number] Univers 07:57:00 09:45:00 Ridge Duarte [place] [id number] i ty of [facility] [place] 4.2.7.2.686 [facility] [id number] [address] 2022-05-07 2022-05-07 Outpatient SANTINO_Ingrid_Wa AOSM AOSM 643 [id number] Adelia 00:00:00 00:00:00 Jhon [id number] [facility] 2022-04-23 2022-04-23 Emergency EM PACO Quintero [id number] [facility] 09:39:00 10:55:00 [place] [facility] [place] [facility] 2022-02-19 2022-02-19 Emergency X HARRIS, [facility] ERT [id number] Univers 09:15:00 11:05:00 TRICE [facility] 2022-02-19 2022-02-19 Emergency [facility] 1.2.840.114 [id number] Univers 09:15:00 11:05:00 Trice [place] [id number] i ty of [facility] [place] 4.2.7.2.686 [facility] [id number] [address] 2021-11-29 2021-11-29 [facility] 1.2.840.114 [id number] Univers 17:40:00 18:00:00 Care [facility] [id number] it y of [place] 4.2.7.2.686 Jacques as SUE?BLEA [phone] Or dical [address] MEDICAL OFFICE BUILDING 2021-11-29 2021-11-[address] [facility] [id number] Univers 17:40:00 17:40:00 [facility] 2021-11-29 2021-11-29 [facility]patient [facility] [id number] Univers 17:40:00 17:40:00 AMEENA [facility] 2021-10-26 2021-10-26 Office GEOVANI Blas, 1.2.840.1 [id number] Univers 09:45:00 10:47:06 Visit Praveen 47573.1.1 ity of 3.412.2.7 [place] .3.302093 .8 [facility] 2021-10-26 2021-10-26 Travel 1.2.840.1 [id number] [id number] Univers 00:00:00 00:00:00 80091.1.1 350.1.13.41 ity of 3.412.2.7 [place].3.698 [place] .3.709100 084.8 .8 [facility] 2021-10-15 2021-10-[address] [facility] EMD [id number] 22:25:00 22:45:00 CONSCIOUS EKTA Gamboa s SIMULATION Memor ia l (LUF/LI V/SA) 2021-10-15 2021-10-15 Inpatient [facility] [id number] 4a53-b [facility] 00:00:00 00:00:00 CONSTANTINE [id number] [facility], [id number] Memor ia [id number] l [place] (LUF/LI AVE, V/[place]) [place] [address] 2021-10-15 2021-10-15 Inpatient [facility] 2f6e [id number] 00:00:00 00:00:00 CONSTANTINE [id number] [facility], [id number] Memor ia [address] [id number] l [place] (LUF/LI AVE, V/SA) [place] [address] 2021-08-29 2021-08-[address] [facility] [id number] Univers 16:20:00 16:20:00 PATRICK [facility] 2021-08-07 2021-08-07 Emergency FRANKIE Crawford AMPARO [id number] [facility] 09:36:00 12:55:[address] [facility] 2021-08-01 2021-08-02 Emergency Jyoti LOZOYA [facility] ERT [id number] Univers 22:00:00 01:17:00 LEANNE [facility] 2021-08-01 2021-08-02 [facility] [id number] Univers 22:00:00 01:17:00 Leanne GAONA 350.1.13.10 i ty of [facility] [place] 4.2.7.2.686 [place] [id number] [facility] 084 [place] 2021-06-28 2021-06-[address] [facility] [id number] Univers 17:30:00 17:30:00 MAGDALENE [facility] 2021-06-22 2021-06-22 Letter Andie, REHAN 1..840.114 [id number] Univers 00:00:00 00:00:00 (Out) Eve LEE 350.1.13.10 it y of [facility] 4.2.7.2.686 Jacques as [id number] [facility] 019 [place] 2021-06-22 2021-06-22 [facility] 1..840.114 [id number] Univers 00:00:00 00:00:00 RanEat Latin 350.1.13.10 it y of [place] 4.2.7.2.686 Jacques as SUE?BLEA [id number] [address] MEDICAL OFFICE BUILDING 2021-06-21 2021-06-[address] [facility] [id number] Univers 11:00:00 12:14:12 PATRICK [facility] 2021-06-21 2021-06-21 [facility]gent [facility] 1.2.840.114 [id number] Univers 11:00:00 11:20:00 Care Mohan [facility] 350.1.13.10 ity of [place] 4.2.7.2.686 Jacques as SUE?BLEA [phone] [address] MEDICAL OFFICE BUILDING 2021-06-21 2021-06-21 Telephone [facility] 1..840.114 [id number] Univers 00:00:00 00:00:00 Rania HEALTH 350.1.13.10 it y of [place] 4.2.7.2.686 Jacques as SUE?BLEA [phone] Or jada RANCHO [facility] Branch MEDICAL OFFICE BUILDING 2021-06-21 2021-06-21 Letter Doctor REHAN 1.2.840.114 [id number] 00:00:00 00:00:00 (Out) Unassigned, ROSA 350.1.13.10 ity of [place] [facility] 4.2.7.2.686 Jacques as [id number] [address] 2021-05-30 2021-05-30 (TEL) STLMLC STLMLC [id number] Co mmon 00:00:00 00:00:00 [facility] 2021-05-29 2021-05-29 (TEL) STLMLC STLMLC [id number] Co mmon 00:00:00 00:00:00 [facility] 2021-04-26 2021-04-26 (TEL) STLMLC STLMLC [id number] Co mmon 00:00:00 00:00:00 [facility] 2021-04-23 2021-04-23 UNSPECIFIE 1 JANIA, STL EMD [id number] 00:46:00 02:08:00 D SETH Dhaliwal ABDOMINAL Memori a PAIN l (LUF/LI V/SA) 2021-04-23 2021-04-23 Inpatient [facility] [place] [address] ce73-[address] 00:00:00 00:00:00 CONSTANTINE [id number] [facility], [id number] Memor ia [address] [id number] l [place] (LUF/LI AVE, V/SA) [place] [address] 2021-04-23 2021-04-23 Inpatient [facility] 6aab 1878-[address] 00:00:00 00:00:00 CONSTANTINE [id number] [facility], [phone] Memor ia [address] [id number] l [place] (LUF/LI AVE, V/SA) [facility] [place] [address] 2021-03-24 2021-03-24 ANXIETY 1 YURY, [facility] [id number] 10:25:00 12:27:00 DISORDER REHAN [facility] UNSPECIFIE [place], Memor ia D [address] [place] (LUF/LI AVE, V/SA) [place] [address] 2021-03-24 2021-03-24 Inpatient [facility] f871 cc2a-c [facility] 00:00:00 00:00:00 CONSTANTINE [id number] [facility], [id number] Memor ia [address] [id number] l [place] (LUF/LI AVE, V/SA) [place] [address] 2021-03-24 2021-03-24 Inpatient [facility] e945 ff19-c [facility] St 00:00:00 00:00:00 CONSTANTINE [id number] [facility], [id number] Memor ia [address] [id number] l [place] (LUF/LI AVE, V/SA) [place] [address] 2021-03-23 2021-03-23 Orders Nofies, 1.2.840.1 [id number] Univers 00:00:00 00:00:00 Only Viktoriya [place] 88394.1.1 it of 3.412.2.7 [place] .3.003822 .8 [facility] 2021-03-10 2021-03-10 UTI SITE E [facility], [facility] [id number] [facility] St 10:29:00 13:50:00 [facility]CIO [facility] [address] [place] (LUF/LI AVE, V/SA) [place] [address] 2021-03-10 2021-03-10 Inpatient [facility] 16e7 6598-b [facility] 00:00:00 00:00:00 CONSTANTINE [id number] [facility], [id number] Memor ia [address] [id number] l [place] (LUF/LI AVE, V/SA) [facility] [place] [address] 2021-03-10 2021-03-10 Inpatient [facility] 518c 3339-c [facility] 00:00:00 00:00:00 CONSTANTINE [id number] [facility], [id number] Memor ia [address] [id number] l [place] (LUF/LI AVE, V/SA) [place] [address] 2021-02-23 2021-02-23 RIGHT E [facility] [id number] [facility] [address] 08:15:00 12:44:00 LOWER [facility] PAIN [address] [place] (LUF/LI AVE, V/SA) [place] [address] 2021-02-23 2021-02-23 Inpatient [facility] [id number] [id number] [facility] St 00:00:00 00:00:00 CONSTANTINE [id number] [facility], [id number] [facility] [address] [id number] l [place] (LUF/LI AVE, V/SA) [place] [address] 2021-02-23 2021-02-23 Inpatient [facility] [id number] [id number] [facility] St 00:00:00 00:00:00 CONSTANTINE [id number] [facility], [id number] [facility] [address] 1655de l [place] (LUF/LI A[address], V/SA) [place] [address] 2021-01-10 2021-01-10 CALCULUS E JANIA, [facility] [id number] [facility] [address] 00:21:00 03:06:00 OF KIDNEY SETH [facility] [address] [place] (LUF/LI A[address], V/SA) [place] [address] 2021-01-10 2021-01-10 Inpatient [facility] ff0d 2205-c [facility] 00:00:00 00:00:00 CONSTANTINE [id number] [facility], [id number] Memor ia [address] [id number] l [place] (LUF/LI AVE, V/SA) [place] [address] 2021-01-10 2021-01-10 [facility]patient [facility] [id number] [facility] 00:00:00 00:00:00 CONSTANTINE [id number] [facility], [id number] Memor ia [id number] ([address]F/LI [address], V/SA) [place] [id number] 2020-12-27 2020-12-27 Emergency [facility] Zarina [id number] [place] 00:00:00 00:00:[address] 2020-12-22 2020-12-22 Outpatient 3 LONI MURILLO TIC [id number] 09:00[facility]00 [facility] 2020-12-13 2020-12-13 Emergency EM Ana, [facility] [id number] [facility] 01:53:00 06:36:[address] [place] [address] 2020-12-12 2020-12-12 RIGHT Jake COTTON, [facility] [id number] [facility] 12:33:00 14:00:00 [facility], Memoria PAIN [address] ([address], V/SA) [place] [address] 2020-12-12 2020-12-12 Inpatient [facility] [id number] [facility] 00:00:00 00:00:00 CONSTANTINE [id number] [facility], [id number] Memor ia [id number] [address] ([address]LI [address], V/SA) [place] [address] 2020-12-12 2020-12-12 Inpatient [facility] 43ed [id number] [facility] 00:00:00 00:00:00 CONSTANTINE [id number] [facility], [id number] Memor ia [id number] ([address], V/SA) [place] [address] 2020-12-08 2020-12-08 SHREYAS SOTOMAYOR, [facility] [id number] [facility] [address] 09:44:00 12:26:00 Chin SCHNEIDER [facility], [place] [facility] a PAIN [address] (LUF/LI A[address], V/SA) [place] [address] 2020-12-08 2020-12-08 [facility]patient [facility] 6a3f a794-a [facility] 00:00:00 CONSTANTINE [id number] [facility], [id number] Memor ia [address] [id number] [address] (LUF/LI AVE, V/SA) [place] [address] 2020-11-25 2020-11-25 UNSPECIFIE [facility] [id number] 00:13:00 00:30:00 D [place] a PAIN [address] ([address]F/LI AVE, V/SA) [place] [address] 2020-11-25 2020-11-25 Inpatient [facility] 3041 db6a-[address] 00:00:00 00:00:00 CONSTANTINE [id number] [facility], [id number] Memor ia [address] [id number] l [address] (LUF/LI AVE, V/SA) [place] [address] 2020-11-25 2020-11-25 Inpatient [facility] a3eb ed11-a [facility]:00 00:00:00 CONSTANTINE [id number] [facility], [id number] Memor ia [address] [id number] l [address] (LUF/LI AVE, V/SA) [place] [address] 2020-11-21 2020-11-21 ENDOMETRIO 1 [facility] [id number] 07:14:00 09:53:00 SIS [facility] UNSPECIFIE [place], Memor ia D [address] ([address]F/LI A[address], V/SA) [place] [address] 2020-11-21 2020-11-21 Inpatient [facility] 90f0 278b-[address] 00:00:00 00:00:00 CONSTANTINE [id number] [facility], [id number]-[id number] Memor ia [address] [id number] l [address] (LUF/LI AVE, V/SA) [place] [address] 2020-11-21 2020-11-21 Inpatient [facility] 3b21 9c7a-[address] 00:00:00 00:00:00 CONSTANTINE 30a-[id number]-8 [facility], [id number] Memor ia [address] [id number] l [place] (LUF/LI AVE, V/SA) [place] [address] 2020-11-14 2020-11-[address] [facility] EMD [id number] 09:27:00 14:37:00 UNS REHAN Dhaliwal WITHOUT Memoria BLEEDING l (LUF/LI V/SA) 2020-11-14 2020-11-14 Inpatient [facility] d4fe d3e2-[address] [facility] 00:00:00 00:00:00 CONSTANTINE [id number]-[id number]-a [facility], [id number] Memor ia [address] [id number] l [address] (LUF/LI AVE, V/[place]) [place] [address] 2020-11-14 2020-11-14 Inpatient [facility] 324e 65b9-b [facility] St 00:00:00 00:00:00 CONSTANTINE [id number] [facility], [id number] Memor ia [address] [id number] l [address] (LUF/LI AVE, V/[place]) [place] [address] 2020-11-08 2020-11-08 OTHER E YURY, [facility] 37709 [id number] [facility] St 08:04:00 13:13:00 CHRONIC [facility] BENY Dhaliwal [facility], Memoria [address] ([address]F/LI AVE, V/SA) [place] [address] 2020-11-08 2020-11-08 Inpatient [facility] 8079 b52c-c [facility]:00 00:00:00 CONSTANTINE [id number] [facility], [id number] Memor ia [address] [id number] l [address] (LUF/LI AVE, V/SA) [place] [address] 2020-11-08 2020-11-08 Inpatient [facility] 0f07 dc59-5 [facility] St 00:00:00 00:00:00 CONSTANTINE [id number] [facility], [id number] Memor ia [address] [id number] l [address] (LUF/LI AVE, V/SA) [place] [address] 2020-11-08 2020-11-08 Inpatient [facility] 40b4 e14c-1 [facility] St 00:00:00 00:00:00 CONSTANTINE [id number] [facility], [id number] Memor ia [address] [id number] l [address] (LUF/LI AVE, V/SA) [place] [address] 2020-11-01 2020-11-01 NAUSEA E WANDA, [facility] 04806 [id number] [facility] St 00:27:00 03:55:00 WITH CLEMENT [facility], [facility] UNSPECIFIE [address] (LUF/LI AVE, V/SA) [place] [address] 2020-11-01 2020-11-01 Inpatient [facility] 1ec3 64c1-c [facility] St 00:00:00 00:00:00 CONSTANTINE [id number]-m [facility], [id number] Memor ia [address] [id number] l [address] (LUF/LI AVE, V/SA) [place] [address] 2020-11-01 2020-11-01 Inpatient [facility] 79c0 b023-[address] 00:00:00 00:00:00 CONSTANTINE [id number]-b [facility], [id number] Memor ia [address] 783eec l [address] (LUF/LI AVE, V/SA) [place] [address] 2020-10-04 2020-10-05 OTHER E RODRICK, [facility] [id number] 23:32:00 01:00:00 CHRONIC JUAN [facility], Memoria [address] ([address]F/LI A[address], V/SA) [place] [address] 2020-10-04 2020-10-04 Inpatient [facility] b016 f3f5-a [facility] 00:00:00 00:00:00 CONSTANTINE [id number]-m Gutierrez [facility], [id number] Memor ia [address] bb93d3 l [address] (LUF/LI AVE, V/SA) [place] [address] 2020-10-04 2020-10-04 Inpatient [facility] ea96 0c7a-[address] 00:00:00 00:00:00 CONSTANTINE 25c-4997-b [facility], [id number] Memor ia [address] [id number] l [address] (LUF/LI AVE, V/[place]) [place] [address] 2020-09-18 2020-09-18 OTHER E [facility] [id number] 01:00:00 04:44:00 CHRONIC [facility] PAIN [facility] [address] (LUF/LI AVE, V/SA) [place] [address] 2020-09-18 2020-09-18 Inpatient [facility] b80a 7ee5-[address] 00:00:00 00:00:00 CONSTANTINE [id number]-8 [facility], [id number] Memor ia [address] [id number] l [address] (LUF/LI AVE, V/SA) [place] [address] 2020-09-18 2020-09-18 Inpatient [facility] 1a33 0198-a [facility] 00:00:00 00:00:00 CONSTANTINE [id number] [facility], [id number] Memor ia [address] [id number] [address] (LUF/LI AVE, V/SA) [place] [address] 2020-09-12 2020-09-12 ENDOMETRIO E KOSCIUK, [facility] [id number] [facility] 00:46:00 02:38:00 SIS JUAN [facility] UNSPECIFIE [place], Memor ia D [address] ([address]F/LI A[address], V/[place]) [place] [address] 2020-09-12 2020-09-12 Inpatient [facility] 726d 153b-a [facility] 00:00:00 00:00:00 CONSTANTINE [id number]-[id number] [facility], [id number] Memor ia [address] [id number] [address] ([address]F/LI AVE, V/[place]) [place] [address] 2020-09-12 2020-09-12 Inpatient [facility] 9a2d b59c-c [facility]:00 00:00:00 CONSTANTINE [id number] [facility], [id number] Memor ia [address] 655cce l [address] ([address]F/LI AVE, V/[place]) [place] [address] 2020-08-22 2020-08-22 OTHER E RODRICK, [facility] 07425 52036 [facility] St 01:13:00 03:24:00 CHRONIC [facility] PAIN [place], Memoria [address] ([address]F/LI A[address], V/SA) [place] [address] 2020-08-22 2020-08-22 Inpatient [facility] 7a1d d2a9-[address] 00:00:00 00:00:00 CONSTANTINE [id number] [facility], [id number] Memor ia [address] [id number] l [address] (LUF/LI AVE, V/[place]) [place] [address] 2020-08-22 2020-08-22 Inpatient [facility] 53d3 2542-f [facility] 00:00:00 00:00:00 CONSTANTINE 72a-4479-9 [facility], [id number] Memor ia [address] [id number] l [address] ([address]F/LI A[place], V/[place]) [place] [address] 2020-08-06 2020-08-06 Inpatient Jake MENSAH, [facility] [id number] 01:21:00 03:35:00 [facility] [address] (LUF/LI AVE, V/SA) [place] [address] 2020-08-06 2020-08-06 Inpatient [facility] 07b7 067c-a [facility] St 00:00:00 00:00:00 CONSTANTINE [id number] [facility], [id number] Memor ia [address] [id number] l [address] (LUF/LI AVE, V/SA) [place] [address] 2020-07-19 2020-07-19 RIGHT Jake COTTON, [facility] 42356 49868 [facility] St 07:50:00 11:20:00 [facility] PAIN [address] (LUF/LI AVE, V/SA) [place] [address] 2020-07-19 2020-07-19 Inpatient [facility] 625d 6050-c [facility] St 00:00:00 00:00:00 CONSTANTINE 92c-[id number] [facility], [id number] Memor ia [address] [id number] l [address] (LUF/LI AVE, V/SA) [place] [address] 2020-07-19 2020-07-19 Inpatient [facility] 0f28 [id number] [facility] St 00:00:00 00:00:00 CONSTANTINE bbb-4c99-b [facility], [id number] Memor ia [address] [id number] l [address] (LUF/LI AVE, V/SA) [place] [address] 2020-07-05 2020-07-05 OTHER E RODRICK, [facility] [id number] 02:42:00 05:00:00 CHRONIC [facility] [address] (LUF/LI AVE, V/SA) [place] [address] 2020-07-05 2020-07-05 Inpatient [facility] 525e 4189-f [facility] 00:00:00 00:00:00 CONSTANTINE bff-495f-b [facility], [id number] Memor ia [address] 7ec68b l [address] (LUF/LI AVE, V/[place]) [place] [address] 2020-07-05 2020-07-05 Inpatient [facility] c54b 2c2e-e [facility] 00:[facility]:00 00:00:00 CONSTANTINE [id number] [facility], [id number] Memor ia [address] [id number] l [address] (LUF/LI AVE, V/SA) [place] [address] 2020-06-10 2020-06-10 (TEL) STLMLC STLMLC [id number] Co mmon 00:00:00 00:00:00 [facility] 2020-06-07 2020-06-07 Inpatient 1 YURY, [facility] [place] [address] [id number] [facility] [address] 12:56:00 19:04:00 [facility] [address] ([address]F/LI A[address], V/SA) [place] [address] 2020-06-07 2020-06-07 Inpatient [facility] 5603 9727-e [facility] 00:00:00 00:00:00 CONSTANTINE aaa-[id number] [facility], [id number] Memor ia [address] [id number] [address] (LUF/LI AVE, V/SA) [place] [address] 2020-05-31 2020-05-31 Inpatient E YURY, [facility] [place] [id number] [facility] [address] 09:31:00 14:13:00 [facility] [address] ([address]F/LI AVE, V/SA) [place] [address] 2020-05-10 2020-05-10 Outpatient STLMLC STLMLC [id number] Common 00:00:00 00:00:00 [facility] 2020-05-09 2020-05-09 Outpatient STLMLC STLMLC [id number] Common 00:00:00 00:00:00 [facility] 2020-05-05 2020-05-05 Outpatient STLMLC STLMLC [id number] Common 00:00:00 00:00:00 [facility] 2020-05-02 2020-05-02 Outpatient STLMLC STLMLC [id number] Common 00:00:00 00:00:00 [facility] 2020-05-02 2020-05-02 Outpatient STLMLC STLMLC [id number] Common 00:00:00 00:00:00 [facility] 2020-04-29 2020-04-29 Outpatient STLMLC STLMLC [id number] Common 00:00:00 00:00:00 [facility] 2020-04-25 2020-04-25 LEFT LOWER E [facility] [id number] 16:46:00 21:30:00 QUADRANT [facility] [address] ([address]F/LI A[address], V/SA) [place] [address] 2020-04-22 2020-04-22 Outpatient STLMLC STLMLC [id number] Common 00:00:00 00:00:00 [facility] 2020-04-20 2020-04-20 PROC&TX [facility] [id number] 15:39:00 16:03:00 NOT [facility] OUT PT [address] (LUF/LI AVE, V/SA) [place] [address] 2020-04-20 2020-04-20 Outpatient STLMLC STLMLC [id number] Common 00:00:00 00:00:00 [facility] 2020-04-20 2020-04-20 Outpatient STLMLC STLMLC [id number] Common 00:00:00 00:00:00 [facility] 2020-04-15 2020-04-15 Outpatient STLMLC STLMLC [id number] Common 00:00:00 00:00:00 [facility] 2020-04-13 2020-04-13 Outpatient STLMLC STLMLC [id number] Common 00:00:00 00:00:00 [facility] 2020-04-12 2020-04-12 Outpatient STLMLC STLMLC [id number] Common 00:00:00 00:00:00 [facility] 2020-04-11 2020-04-11 Outpatient STLMLC STLMLC [id number] Common 00:00:00 00:00:00 [facility] 2020-04-08 2020-04-08 Outpatient STLMLC STLMLC [id number] Common 00:00:00 00:00:00 [facility] 2020-04-06 2020-04-06 Outpatient STLMLC STLMLC [id number] Common 00:00:00 00:00:00 [facility] 2020-04-04 2020-04-04 Outpatient STLMLC STLMLC [id number] Common 00:00:00 00:00:00 [facility] 2020-03-31 2020-03-31 Outpatient STLMLC STLMLC [id number] Common 00:00:00 00:00:00 [facility] 2020-03-29 2020-03-29 Outpatient GEOVANI BLAS [facility] [id number] 00:00:00 00:00:00 PRAVEEN payton 2020-03-29 2020-03-29 Outpatient STLMLC STLMLC [id number] Common 00:00:00 00:00:00 [facility] 2020-03-28 2020-03-28 Outpatient STLMLC STLMLC [id number] Common 00:00:00 00:00:00 [facility] 2020-03-22 2020-03-22 Outpatient STLMLC STLMLC [id number] Common 00:00:00 00:00:00 [facility] 2020-03-21 2020-03-21 Outpatient STLMLC STLMLC [id number] Common 00:00:00 00:00:00 [facility] 2020-03-20 2020-03-20 FEDE COTTON, [facility] 81804 [id number] [facility] 17:08:00 22:56:00 ABDOMINAL REHAN CONSTANTINE Luke s PAIN [place], [facility] UNSPECIFIE [address] (LUF/LI AVE, V/[place]) [place] [address] 2020-03-14 2020-03-17 CELLULITIS Jake STAFFORD, [facility] [id number] [facility] [address] 14:54:00 11:30:00 OF MOSQUE [facility] s [facility] [place] [address] ([address]/LI A[address], V/SA) [place] [address] 2020-03-03 2020-03-03 [facility] [id number] Common 13:33:00 13:33:00 Clinics [facility] 2020-03-02 2020-03-02 ALEJANDRA WOLFE, [facility] [place] [address] [id number] [id number] [facility] [address] 05:58:00 15:35:00 PERITON LIZBETH [facility] [address]IERAN [address] ([address]F/LI A[address], V/SA) [place] [address] 2020-03-02 2020-03-02 [facility] [id number] Common 00:00:00 00:00:00 [facility] 2020-03-01 2020-03-01 [facility] [id number] Common 09:15:00 09:15:[address] [facility] 2020-02-29 2020-02-29 [facility] [id number] Common 09:30:00 09:30:[address] [facility] 2020-02-25 2020-02-27 LOWER E YURY, [facility] [place] [id number] 13:21:00 12:09:00 ABDOMINAL REHAN [facility] UNSPECIFIE [address] (LUF/LI AVE, V/SA) [place] [address] 2020-02-25 2020-02-25 UNSPECIFIE E KOSCIUK, [facility] [id number] [facility] 00:40:00 05:00:00 D JUAN [facility] ABDOMINAL [place], [facility] a PAIN [address] ([address]F/LI AVE, V/SA) [place] [address] 2020-01-25 2020-01-25 LOW BACK 1 COTTON, [facility] [place] 825760 [id number] [facility] 11:28:00 13:15:00 PAIN REHAN CONSTANTINE [facility] [place], Memoria [address] (LUF/LI AVE, V/[place]) [place] [address] 2020-01-18 2020-01-18 Outpatient [facility] [id number] Common 11:45:00 11:45:00 Clinics [facility] 2019-12-09 2019-12-09 OTHER E [facility] [id number] [facility] [address] 03:03:00 05:08:00 CHRONIC [facility] PAIN [place], Memoria [address] ([address]F/LI A[address], V/[place]) [place] [address] 2019-11-24 2019-11-24 UNSPECIFIE E [facility] [place] [id number] 00:31:00 05:30:00 D [facility] ABDOMINAL [place], Memori a PAIN [address] ([address]F/LI A[address], V/[place]) [place] [address] 2019-10-07 2019-10-07 RIGHT 1 COTTON, [facility] [id number] 20:35:00 23:10:[address] [facility] QUADRANT [place], Memoria PAIN [address] ([address]F/LI A[address], V/[place]) [place] [address] 2019-09-20 2019-09-20 RIGHT 1 COTTON, [facility] [id number] 00:33:00 04:23:[address] [facility] QUADRANT [place], Memoria PAIN [address] (LUF/LI AVE, V/SA) [place] [address] 2019-08-17 2019-08-17 UNSPECIFIE 1 TRUX, [facility] [id number] 02:18:00 04:45:00 D MOSQUE CONSTANTINE Luke s ABDOMINAL [place], Memori a PAIN [address] ([address]F/LI A[address], V/[place]) [place] [address] 2019-04-22 2019-04-22 Outpatient [facility] [id number] Common 12:03:00 12:03:00 Clinics [facility] 2019-04-14 2019-04-14 Outpatient [facility] [id number] Common 16:12:00 16:12:00 Clinics [facility] 2019-04-06 2019-04-06 Outpatient [facility] [id number] Common 12:16:00 12:16:00 Clinics [facility] 2019-03-31 2019-03-31 Outpatient [facility] [id number] Common 14:00:00 14:00:00 [facility] 2018-12-07 2018-12-07 UNSPECIFIE 1 QUINTIN BRITO [facility] [id number] [facility] St 01:06:00 04:45:00 D OVARIAN CONSTANTINE Luke s CYST RIGHT [facility] ia SIDE [address] ([address]F/LI A[address], V/SA) [place] [address] 2018-10-29 2018-10-29 N-PRSS CHR BLAKESTAD, [facility] [id number] [facility] St 06:59:00 23:59:00 UL[facility] [facility]KY [facility] [address] ([address]F/LI A[address], V/SA) [place] [address] 2018-10-22 2018-10-22 N-PRSS CHR BLAKEST[place], [facility] [id number] [facility] St 07:20:00 23:59:00 ULCR SKIN MIKY CON[facility]ANTINE [facility] [address] ([address]F/LI A[address], V/SA) [place] [address] 2018-10-15 2018-10-15 N-PRSS CHR O BLAKEST[place], [facility] [id number] [facility] St 07:08:00 23:59:00 ULCR [facility]KY [facility] [address] ([address]F/LI A[address], V/SA) [place] [address] 2018-09-30 2018-10-01 INFCT FOL 1 SHABNAM, [facility] [id number] [facility] 18:46:00 01:05:00 PRC SUPF DIMAS [facility] INC SRG [facility] SIT INIT [address] ([address]F/LI A[address], V/SA) [place] [address] 2018-09-01 2018-09-01 OTH 1 WANDA, [facility] [place] [id number] 09:12:00 14:00:00 NONINFL CLEMENT [facility] D/O OVARY [place], Memori a TUBE&BRD [address] ([address]F/LI A[address], V/SA) [place] [address] 2018-05-13 2018-05-13 Inpatient 1 WANDA, [facility] [place] [id number] 10:52:00 13:46:[address] [address] ([address]/LI [address], V/SA) [place] [address] 2017-12-24 2017-12-24 UNSPECIFIE 1 QUINTIN BRITO [facility] [id number] [facility] 07:51:00 13:52:00 D OVARIAN [facility] s CYST RIGHT [place] SIDE [address] ([address]/LI A[address], V/SA) [place] [address] 2017-06-20 2017-06-21 HYDRONPHRO 1 SANALETA, [facility] [id number] [facility] 23:01:00 03:55:00 S JUAN [facility] RENL&URETR [place] L CALCUL [address] ([address]F/LI A[address], V/SA) [place] [address] 2017-05-13 2017-05-13 OTHER 3 MERLE, [facility] [id number] 15:40:00 23:59:00 FATIGUE ASA [facility], Memoria [address] ([address]) [place] [address] Results Test Description Test Time Test Comments Results Result Comments Source POCT TEST 2022-11-21 04:40:00 Test Item Value Reference Range Interpretation Comme nts POCT PREG (test code = 1605) Negative On board controls acceptable with C Line (test code = 3574) Yes POCT PREG LOT # (test code = 6917) [id number] POCT PREG TEST DATE (test code = 3576) 02/06/2024 Lab Interpretation (test code = 40465-4) Normal [facility]. METABOLIC PANEL (83337)2022-10-26 04:29:54 Test Item Value Reference Range Interpretation Comments NA (test code = 138 mmol/L 135-145 2268082577) K (test code = 4.0 mmol/L 3.5-5.0 5651673572) CL (test code = 110 mmol/L 98-108 H 9977189206) CO2 TOTAL (test code = 19 mmol/L 23-31 L 5989235348) AGAP (test code = 9 2-16 6818061146) BUN (test code = 13 mg/dL 7-23 5441254106) GLUCOSE (test code = 155 mg/dL 70-110 H 7087711375) CREATININE (test code = 0.84 mg/dL 0.50-1.04 7878298427) TOTAL BILI (test code = 0.3 mg/dL 0.1-1.3 4417497000) CALCIUM (test code = 8.7 mg/dL 8.6-10.6 2118767540) T PROTEIN (test code = 6.6 g/dL 6.3-8.2 9041352384) ALBUMIN (test code = 4.1 g/dL 3.5-5.0 3945154149) ALK PHOS (test code = 79 U/L 34-122 4843066092) ALTv (test code = 24 U/L 5-35 1742-6) AST(SGOT) (test code = 24 U/L 13-40 2236986055) eGFR (test code = 76.7 mL/min/1.73m2 8750778978) RENZO (test code = RENZO) Association of [...] tests). Lab Interpretation Abnormal (test code = 48547-3) [facility] Test Item Value Reference Range Interpretation Comments LIPASE (test code = 3934729245) 96 U/L 0-220 Lab Interpretation (test code = Normal 03134-6) [facility] WITH [id number] 04:16:10 Test Item Value Reference Range Interpretation Comments WBC (test code = 10.69 See_Comment [Automated 5754-2) message] The sy stem which generated this result transmitted reference range : 4.30 - 11.10 10*3/?L. The reference range was not used to interpret this result as normal/abnormal . RBC (test code = 4.25 See_Comment [Automated 877-7) message] The sy stem which generated this result transmitted reference range : 3.93 - 5.25 10*6/?L. The reference range was not used to interpret this result as normal/abnormal . HGB (test code = 12.3 g/dL 11.6-15.0 718-7) HCT (test code = 37.5 % 35.7-45.2 4544-3) MCV (test code = 88.2 fL 80.6-95.5 787-2) MCH (test code = 28.9 pg 25.9-32.8 785-6) MCHC (test code = 32.8 g/dL 31.6-35.1 786-4) RDW-SD (test code = 41.8 fL 39.0-49.9 78258-9) RDW-CV (test code = 13.0 % 12.0-15.5 788-0) PLT (test code = 305 See_Comment [Automated 777-3) message] The sy stem which generated this result transmitted reference range : 166 - 358 10*3/ ?L. The reference r bruce was not used to interpret this result as normal/abnormal . MPV (test code = 9.1 fL 9.5-12.9 L 14339-9) NRBC/100 WBC (test 0.0 See_Comment [Automat ed code = 1161310554) message] The system which generated this result transmitted reference range : 0.0 - 10.0 /100 WBCs. The refer ence range was not u sed to interpret th is result as normal/abnormal . NRBC x10^3 (test code See_Comment [Auto mated = 7126524935) message] The s ystem which generated this result transmitted reference range : 10*3/?L. The reference range was not used to interpret this result as normal/abnormal . GRAN MAT (NEUT) % 55.4 % (test code = 770-8) IMM GRAN % (test code 0.80 % = 2332279574) LYMPH % (test code = 33.2 % 736-9) MONO % (test code = 4.2 % 5905-5) EOS % (test code = 5.8 % 713-8) BASO % (test code = 0.6 % 706-2) GRAN MAT x10^3(ANC) 5.92 10*3/uL 1.88-7.09 (test code = 8799468146) IMM GRAN x10^3 (test 0.09 10*3/uL 0.00-0.06 H code = 3517929194) LYMPH x10^3 (test code 3.55 10*3/uL 1.32-3.29 H = 731-0) MONO x10^3 (test code 0.45 10*3/uL 0.33-0.92 = 742-7) EOS x10^3 (test code = 0.62 10*3/uL 0.03-0.39 H 711-2) BASO x10^3 (test code 0.06 10*3/uL 0.01-0.07 = 704-7) Lab Interpretation Abnormal (test code = 50417-5) [facility] (BINAX NOW)2022-06-13 23:43:00 Test Item Value Reference Range Interpretation Comments POCT SARS-COV-2 ANTIGEN (test code = Positive Not Detected A 88034-6) On board controls acceptable with C Yes Line (test code = 3574) Lab Interpretation (test code = Abnormal 21468-0) [facility]- [facility] SH[facility] 2 + V [id number] 16:42:00 [facility] 1985 Sex: F Patient Name: HONG BETH Unit No: [id number] EXAMS: CPT CODE: [id number] XR SHOULDER 2 + [place] [address] Left shoulder 3 views COMMENT: There is no evidence for fracture or subluxation. No focal bony lesions are seen. at 1642 Reported and signed by: Angelo Hardin MD CC: Truman Quintero MD Technologist: Jeannette Garcia, RT.(R) TranscribedD/ (5142) t[facility] NAME: HONG BETH [address] [facility] PHYS: Truman Alfaro MD : 1985 AGE: 36 SEX: F [place], [place] [address] : JOHNNIE PHONE #: [phone] EXAM DATE: 04/23/2022 STATUS: DEP ER FAX #: [phone] RAD #: D/CDT PAGE 1 Signed Report Patient Name: HONG BETH Unit No: [id number] EXAMS: CPT CODE: [id number] XR SHOULDER 2 + [place] [address] (Continued) Orig Print D/T: S: 04/23/2022 (1645) [facility] NAME: HONG BETH [address] [facility] PHYS: Truman Alfaro MD : 1985 AGE: 36 SEX: F [place], [place] [address] LOC: JOHNNIE PHONE #: [phone] EXAM DATE: 04/23/2022TATUS: DEP ER FAX #: [phone] RAD #: D/C DT PAGE 2 Signed ReportCOMP. METABOLIC PANEL (20225)2022-02-19 14:56:05 Test Item Value Reference Range Interpretation Comments NA (test code = 137 mmol/L 135-145 0406922972) K (test code = 4.2 mmol/L 3.5-5 9157143152) CL (test code = 108 mmol/L 98-108 6297173740) CO2 TOTAL (test code = 19 mmol/L 23-31 L 1506763591) AGAP (test code = 2-16 1277004761) BUN (test code = 14 mg/dL 7-23 1887624510) GLUCOSE (test code = 133 mg/dL 70-110 H 4267930377) CREATININE (test code = 0.56 mg/dL 0.5-1.04 6051030997) TOTAL BILI (test code = 0.4 mg/dL 0.1-1.5 5014607897) CALCIUM (test code = 8.9 mg/dL 8.6-10.6 8717776810) T PROTEIN (test code = 6.5 g/dL 6.3-8.2 5353772481) ALBUMIN (test code = 4.0 g/dL 3.5-5 1287285426) ALK PHOS (test code = 84 U/L 34-122 4925585881) ALTv (test code = 23 U/L 5-35 1742-6) AST(SGOT) (test code = 24 U/L 13-40 2244641139) eGFR (test code = mL/min/1.73m2 9449482844) RENZO (test code = RENZO) Association of [...] tests). Lab Interpretation Abnormal (test code = 91721-0) [facility] 14:55:44 Test Item Value Reference Range Interpretation Comments LIPASE (test code = 7788933742) 81 U/L 0-220 Lab Interpretation (test code = Normal 97214-7) [facility] HospitalCB WITH [id number] 14:36:26 Test Item Value Reference Range Interpretation [...] RDW-SD (test code = 43.9 fL 39-49.9 66521-9) RDW-CV (test code = 13.7 % 12-15.5 788-0) PLT (test code = See_Comment [Automated 777-3) message] The sy stem which generated this result transmitted reference range : 166 - 358 10*3/ ?L. The reference r bruce was not used to interpret this result as normal/abnormal . MPV (test code = 8.5 fL 9.5-12.9 L 23910-9) NRBC/100 WBC (test See_Comment [Automat ed code = 9437791951) message] The system which generated this result transmitted reference range : 0.0 - 10.0 /100 WBCs. The refer ence range was not u sed to interpret th is result as normal/abnormal . NRBC x10^3 (test code See_Comment [Auto mated = 0987042942) message] The s ystem which generated this result transmitted reference range : 10*3/?L. The reference range was not used to interpret this result as normal/abnormal . GRAN MAT (NEUT) % 58.7 % (test code = 770-8) IMM GRAN % (test code 1.10 % = 1170199509) LYMPH % (test code = 31.6 % 736-9) MONO % (test code = 6.8 % 5905-5) EOS % (test code = 1.4 % 713-8) BASO % (test code = 0.4 % 706-2) GRAN MAT x10^3(ANC) 3.30 10*3/uL 1.88-7.09 (test code = 0933048904) IMM GRAN x10^3 (test 0.06 10*3/uL 0-0.06 code = 2080375509) LYMPH x10^3 (test code 1.77 10*3/uL 1.32-3.29 = 731-0) MONO x10^3 (test code 0.38 10*3/uL 0.33-0.92 = 742-7) EOS x10^3 (test code = 0.08 10*3/uL 0.03-0.39 711-2) BASO x10^3 (test code 0.01-0.07 = 704-7) Lab Interpretation Abnormal (test code = 37094-7) [facility] HospitalPO[facility] MOLECULAR [id number] 22:58:14 Test Item Value Reference Range Interpretation Comments POCT Molecular FluA (test code = Negative Negative 08990-9) POCT Molecular FluB (test code = Negative Negative 24722-6) Lab Interpretation (test code = Normal 16824-4) [facility] Hospital[facility]AT[facility] FUNCTION PANEL (LIVER)2021-10-16 13:57:00 Test Item [...] (test code = 0.2 mg/dl 0.0-1.1 IBIL) [id number] 13:57:00 Test Item Value Reference Range Interpretation Comments Lipase (test code = LIPA) 114 U/L 73-393 STLAMYLASE, [id number] 13:57:00 Test Item Value Reference Range Interpretation Comments Amylase (test code = AMYL) 51 U/L 25-115 [facility] CHEM [id number] 22:45:00 Test Item Value Reference Range Interpretation [...] code = CO2) 22.1 mmol/l 24.0-29.0 L [facility] CBC WITH AUTO [id number] 22:43:00 Test Item Value Reference Range Interpretation [...] = IG%) 0.2 % 0.0-0.4 STLMLHEPATIC FUNCTION [id number] 13:03:00 Test Item Value Reference Range Interpretation [...] 96 Unit/L 45-117 N code = ALKP) [id number] 13:03:00 Test Item Value Reference Range Interpretation Comments LIPASE (test code = LIP) 83 Unit/L 114-286 L BASIC METABOLIC [id number] 13:03:00 Test Item Value Reference Range Interpretation [...] 8.5-10.1 N UA RFLX MICR CULT IF [id number] 12:44:00 Test Item Value Reference Range Interpretation [...] OF URINE: CLEAN CATCH- CT ABD PELVIS [id number] 12:27:00 [facility] 1985 Sex: F Name: DIEUDONNE BETHDAVIDE [facility]oltan [facility] : 1985 Age/S: 36 / F [address] Unit #: [id number]: Julián Holcomb [address] Phys: Marco Hilton PHYSICAL THERAPIST Acct: [id number] Dis Date: Status: REG ER PHONE #: [phone] Exam Date: 08/07/20213 FAX #: Reason: LLQ ABD PAIN EXAMS: CPT: [id number] CT ABD PELVIS W/CONT 63787 EXAM: CT ABDOMEN AND PELVIS WITH CONTRAST. [...] technique. PAGE 1 Signed Report (CONTINUED) Name: HONG EBTH : 1985 Age/S: 36 / F [address] Unit #: [id number] Loc: Julián Holcomb [address] Phys: Marco Hilton PHYSICAL THERAPIST Acct: [id number] Dis Date: Status: REG ER PHONE #: [phone] Exam Date: 08/07/2021 1223 FAX #: Reason: LLQ ABD PAIN EXAMS: CPT: [id number] CT ABD PELVIS W/CONT [address] <Continued> at 1227 Reported and signed by: Alma Cartwright M.D. CC: Olga Clements DO; Marco Hilton NP Technologist:Elmer Laguna, RT(R) CTDI: DLP: Trnscb Date/Time: 08/07/2021 (1227) 16 Orig Print D/T: S: 08/07/2021 (1053) PAGE 2 Signed ReportCBC W/AUTO [id number] 12:23:00 Test Item Value Reference Range Interpretation [...] DIFF/SCN CRITERIA = MDIFF) CORONAVIRUS 2019 (IN [place])(3HR)2021-03-24 17:04:00 Test Item Value Reference Range Interpretation Comments FT (test code Negative Negative N The [place]X SARS -CoV-2 = COVID) (qualifier value) Reagents f or BD MAX System, the Code71 Fire Covid-19, and janel bolden Cepheid Covid-1 [...] contact the Coronavirus [facility] at [phone]. [id number] 12:37:00 Test Item Value Reference Range Interpretation [...] 0.5-1.3 code = CREA) EGFR if >60 Cambodian (test code mL/min/1.73m\\ = EGFRAA) S\\2 EGFR if Non- >60 Estimate d Glomerular Cambodian (test code mL/min/1.73m\\ Filtrat ion Rate (eGFR) [...] of c hronic kidney failure. STLMLSTAT LAB [id number] 12:11:00 Test Item Value Reference Range Interpretation [...] after the clini felipa event. STLMLPT AND [id number] 12:09:00 Test Item Value Reference Range Interpretation Comments Protime (test code 9.5 seconds 9.5-12.1 = PT) INR (test code = 0.9 0.9-1.1 INR results are intended INR) ONLY to monitor Oral Anticoagulant t herapy in stablized patie nts. The INR Therapeutic Range is 2.0 - 3.0 Patie nts with a mechanical he art, the INR Range is 2. 5 - 3.5 [id number] 12:09:00 Test Item Value Reference Range Interpretation Comments aPTT (test code = PTT) 22.3 seconds 23.9-30.7 L STLSTAT LAB CBC WITH AUTO [id number] 11:57:00 Test Item Value Reference Range Interpretation [...] 0.3 % 0.0-0.4 STLMLXR CHEST AP/PA 1 [id number] 11:33:32 [facility] (LUF/AIB/SA)Name: HONG BETH : 1985 Sex: FProcedure: XR CHEST AP/PA 1 VIEWOrder Date: 03/24/2021 10:57 AMOrdering Provider: REHAN Farrellinical Indication: [id number]: DyspneaComparison: September 30, 2018Findings:Cardiac size is normal.Pulmonary vasculature is normal.Mediastinal contour is normal.Aortic contour is normal.No acute infiltrates or effusions.There is no mass or pneumothorax.There is no evidence of active tuberculosis.There isno acute skeletal abnormality.Impression: Negative AP view of the chest.This final report was electronically signed by Dr Farzad Dewitt MD :28 AMDictated By: FARZAD DEWITTDate: :28STLMLCULTURE, [id number] 08:00:00Specimen: Urine SpecimensCollected: 03/10/2021 11:50 Status: Final [...] code = NEGATIVE NEGATIVE N UKET) Specific Arjay 1.015 1.005-1.030 A (test code = USPGR) [...] SEEN A Epithelial (test code = NSE) [facility] WITH AUTO [id number] 12:10:00 Test Item Value Reference Range Interpretation [...] code = IG%) 0.8 % 0.0-0.4 H [facility] CHEM [id number] 12:08:00 Test Item Value Reference Range Interpretation [...] = CREA) 0.5 mg/dl 0.6-1.3 L STLMLCULTURE, [id number] 08:26:00Specimen: Urine SpecimensCollected: 02/23/2021 08:35 Status: Final Last Updated: 02/24/2021 08:26 CULTURE (Final) (Final) Many Mixed Body Gabriela Isolated No Pathogens IsolatedSTLMLCT ABDOMEN/PELVIS W/[id number] 11:40:43 [facility] ([facility]/)Name: HONG BETH : 1985 Sex: FProcedure: CT ABDOMEN/PELVIS W/CONTRASTOrder date: 02/23/2021 10:08 AMOrdering Provider: REHAN Farrellinical Indication: [id number]: Right lower quadrant painComparison: November 14, 2020Technique: [...] electronically signed by Dr Wiley Velázquez MD :35 AMDictated By: WILEY VELÁZQUEZDate: 02/23/2021 11:[id number] 10:44:00 Test Item Value Reference Range Interpretation Comments Lipase (test code = LIPA) 86 U/L 73-393 STLMLURINALYSIS WITH [id number] 08:58:00 Test Item Value Reference Range Interpretation Comments Color (test code = Light-Yellow UCOLR) Clarity (test code = Clear UCLAR) Glucose (test code = NEGATIVE NEGATIVE N UGLUC) Bilirubin (test code NEGATIVE NEGATIVE N = UBILI) Ketones (test code = NEGATIVE NEGATIVE N UKET) Specific Arjay 1.020 1.005-1.030 A (test code = USPGR) [...] 41-50 0-10 A (test code = SQEP) [facility] CBC WITH AUTO [id number] 08:52:00 Test Item Value Reference Range Interpretation [...] (test code = IG%) 0.3 % 0.0-0.4 [facility] CHEM [id number] 08:52:00 Test Item Value Reference Range Interpretation [...] (test code = CREA) 0.6 mg/dl 0.6-1.3 [facility] CBC WITH AUTO [id number] 02:37:00 Test Item Value Reference Range Interpretation [...] A value of 55 was entered by [id number] on 01/10/2021 02:3 7 Lymphocytes (test 43 % 13-42 H No previou s value code = LYMPH) was reported. A value of 43 was entered by [id number] on 01/10/2021 02:3 7 Monocytes (test 1 % 4-14 L No previous value code = MONOS) was reported. A value of 1 was entered by [id number] on 01/10/2021 02:3 7 Basophils (test 1 % 0-1 No previous value code = BASO) was reported. A value of 1 was entered by [id number] on 01/10/2021 02:3 7 Normal Morphology Normal WBC RBC Normal RBC \\T\\ N No pre vious value (test code = NRCM) and Platelet WBC was repor michael. A Morphology Morphology,Normal value of N ormal WBC RBC and WBC RBC and Platelet Platelet Morphology Morphology was entered by [id number] on 01/10/2021 02:3 7 STLMLAMYLASE, [id number] 02:14:00 Test Item Value Reference Range Interpretation Comments Amylase (test code = AMYL) 46 U/L 25-115 [id number] 02:14:00 Test Item Value Reference Range Interpretation Comments Lipase (test code = LIPA) 115 U/L 73-393 STLMLURINALYSIS WITH [id number] 02:07:00 Test Item Value Reference Range Interpretation Comments Color (test code = Light-Yellow UCOLR) Clarity (test code = Cloudy UCLAR) Glucose (test code = NEGATIVE NEGATIVE N UGLUC) Bilirubin (test code NEGATIVE NEGATIVE N = UBILI) Ketones (test code = NEGATIVE NEGATIVE N UKET) Specific Arjay 1.025 1.005-1.030 A (test code = USPGR) [...] SEEN A Epithelial (test code = NSE) [facility] [id number] 01:50:00 Test Item Value Reference Range Interpretation [...] (test code = CREA) 0.6 mg/dl 0.6-1.3 [facility] W/[id number] 03:46:00 [facility] 1985 Sex: F FAX: Annemarie Tesfaye [phone] [place]: St: REG Name: HONG BETH [facility] : 1985 Age/S: 35/F [address] Unit: [id number] Loc: [place] [address] Phys: Annemarie Tesfaye PHYSICAL THERAPIST Acct: [id number] Dis Date: Status: REG ER PHONE #: [phone] Exam Date: 12/13/2020 0325 FAX #: [phone] Reason: DIFFUSE ABD PAIN WORSE RLQ, HX APPY, ROSE EXAMS: CPT CODE: [id number] CT ABD PELVIS W/[id number] AFTER HOURS SERVICE ON: 12/13/2020 3:44 AM [...] 1 Signed Report (CONTINUED) FAX: Annemarie Tesfaye [phone] [place]: St: REG--------- Name: HONG BETH Zoltan [facility] : 1985 Age/S: 35/F [address] Unit: [id number] Loc: [place] [address] Phys: Annemarie Tesfaye NP Acct: [id number] Dis Date: Status: REG ER PHONE #: [phone] Exam Date: 12/13/2020 0325 FAX #: [phone] Reason: DIFFUSE ABD PAIN WORSE RLQ, HX APPY, ROSE EXAMS: CPT CODE: [id number] CT ABD PELVIS W/CONT 39361 <Continued> CC: Annemarie Tesfaye PHYSICAL THERAPIST Technologist: PAMELA KRISHNAMURTHY; Jessi Guillory; JAIRO SANCHEZ JR Trnscrd Dt/Tm: 12/13/2020 (0346) t.[email or web address] Orig Print D/T: S: 12/13/2020 (2745 PAGE 2 Signed ReportCOMPREHENSIVE METABOLIC [id number] 03:32:00 Test Item Value Reference Range Interpretation [...] U/L 38-126 N (test code = ALKP) [id number] 03:32:00 Test Item Value Reference Range Interpretation Comments LIPASE (test code = LIP) 82 U/L 23-300 N BEDSIDE [id number] 03:24:00 Test Item Value Reference Range Interpretation Comments BEDSIDE CREATININE (test code = 0.60 mg/dL 0.51-1.19 N CREATBED) CBC W/AUTO [id number] 03:14:00 Test Item Value Reference Range Interpretation [...] 0.0-0.1 N UA RFLX MICR CULT IF [id number] 02:59:00 Test Item Value Reference Range Interpretation [...] OF URINE: [facility] LAB CBC WITH AUTO [id number] 15:12:00 Test Item Value Reference Range Interpretation [...] A value of 63 was entered by [employer] 82 on 12/12/2020 15:12 Bands (test code [...] entered by [id number] 82 on 12/12/2020 15:12 [facility] LAB CHEM [id number] 14:08:00 Test Item Value Reference Range Interpretation [...] code = CREA) 0.5 mg/dl 0.6-1.3 L [facility] LAB URINALYSIS WITHOUT [id number] 12:08:00 Test Item Value Reference Range Interpretation Comments Color (test code = Light-Yellow UCOLR) Clarity (test code = Cloudy UCLAR) Glucose (test code = NEGATIVE NEGATIVE N UGLUC) Bilirubin (test code NEGATIVE NEGATIVE N = UBILI) Ketones (test code = NEGATIVE NEGATIVE N UKET) Specific Arjay 1.015 1.005-1.030 A (test code = USPGR) [...] NEGATIVE N (test code = ULEUK) [facility]HEP[facility] PANEL (LIVER)2020-11-21 08:43:00 Test Item Value [...] mg/dl 0.0-1.1 IBIL) [facility]URINALYS[facility] WITH [id number] 08:31:00 Test Item Value Reference Range Interpretation Comments Color (test code = Light-Yellow UCOLR) Clarity (test code = Clear UCLAR) Glucose (test code = NEGATIVE NEGATIVE N UGLUC) Bilirubin (test code NEGATIVE NEGATIVE N = UBILI) Ketones (test code = NEGATIVE NEGATIVE N UKET) Specific Arjay 1.020 1.005-1.030 A (test code = USPGR) Blood (test code = NEGATIVE NEGATIVE N UBLD) PH (test code = UPH) 6.5 4.5-8.0 A Protein (test code = NEGATIVE NEGATIVE N UPROT) Urobilinogen (test 0.2 See_Comment N [Automat ed message] code = U UROB) The system [employer] generated this result transmit michael reference [...] TNTC 0-10 A (test code = SQEP) [facility] LAB CHEM [id number] 08:27:00 Test Item Value Reference Range Interpretation [...] code = CREA) 0.5 mg/dl 0.6-1.3 L [facility] CBC WITH AUTO [id number] 08:26:00 Test Item Value Reference Range Interpretation [...] 0.4 % 0.0-0.4 [facility]kinXR ABDOMEN 2 VIEWS FLAT / [id number] 08:18:50[facility] ([facility]/)Name: HONG BETH : 1985 Sex: FProcedure: XR ABDOMEN 2 VIEWS FLAT / UPRIGHTOrder Date: 11/21/2020 7:43 AMOrdering Provider: REHAN Farrellinical Indication: [id number]: Abdominal painComparison: Nov 14 2020Findings:Bowel gas pattern is non-obstructive. No pneumoperitoneum.There is moderate volume stool burden.Surgical clips in the right upper quadrant of the abdomen.Impression:Nonobstructive bowel gas pattern.This final reportwas electronically signed by Dr Silver Benitez MD :13 AMDictated By: GLORY BENITEZKDate: 11/21/2020 08:13[facility]CT [facility]/PELVIS W/O CONTRAST 2020-11-14 14:11:31 [facility] ([facility]/ABI/)Name: HONG BETH DOB: 1985 Sex: FProcedure: CT ABDOMEN/PELVIS W/O CONTRASTOrder Date: 11/14/2020 1:22 PMOrdering Provider: BILLY ACOSTA .Clinical Indication: [id number]: Right flank painComparison: Renal ultrasound November 08, [...] MD 12:05 PMDictated By: FARZAD DEWITT.Date: 11/14/2020 14:05[facility] , [id number] 13:31:00 Test Item Value Reference Range Interpretation Comments (Urine) (test code = Negative PREGU) ONLY AVAILABLE 8A-12[facility] LAB CHEM [id number] 11:09:00 Test Item Value Reference Range Interpretation [...] code = CREA) 0.5 mg/dl 0.6-1.3 L [facility] URINALYSIS WITHOUT [id number] 11:08:00 Test Item Value Reference Range Interpretation Comments Color (test code = Yellow Lt. Yellow A UCOLR) Clarity (test code = Clear UCLAR) Glucose (test code = Negative Negative N UGLUC) Bilirubin (test code Negative Negative N = UBILI) Ketones (test code = Negative Negative N UKET) Specific Arjay 1.025 1.005-1.030 A (test code = USPGR) [...] Negative Negative N (test code = ULEUK) [facility] LAB CBC WITH AUTO [id number] 11:05:00 Test Item Value Reference Range Interpretation [...] 0.4 % 0.0-0.4 [facility] CenterkinCULTURE, [id number] 08:43:00Specimen: Urine SpecimensCollected: 11/08/2020 09:59 Status: Final Last Updated: 11/09/2020 08:43 CULTURE (Final) (Final) Few Mixed Body Gabriela Isolated No Pathogens [facility]AD[facility] (KIDNEYS)2020-11-08 12:00:28[facility] ([facility]ABI/SA)Name: HONG BETH : 1985 Sex: FProcedure: US RENALOrder [...] AMDictated By: GLORY BENITEZKDate: 11/08/2020 11:54[facility]UR[facility]AL[facility] WITH MICROSCOPIC 2020-11-08 10:58:00 Test Item Value Reference Range Interpretation Comments Color (test code = Yellow UCOLR) Clarity (test code = Clear UCLAR) Glucose (test code = NEGATIVE NEGATIVE N UGLUC) Bilirubin (test code = NEGATIVE NEGATIVE N UBILI) Ketones (test code = NEGATIVE NEGATIVE N UKET) Specific Arjay (test 1.030 1.005-1.030 A code = USPGR) Blood (test code = NEGATIVE NEGATIVE N UBLD) PH (test code = UPH) 6.0 4.5-8.0 A Protein (test code = NEGATIVE NEGATIVE N UPROT) Urobilinogen (test code 0.2 See_Comment N [Au tomated message] = U UROB) The system [employer] generated this result transmitted ref erence range: [...] code = SQEP) [facility]-LufkinCULTURE, [id number] 08:13:00ER 17Specimen: Urine SpecimensCollected: 11/01/2020 01:10 Status: Final Last Updated: 11/02/2020 08:13 (1) ER 17 CULTURE (Final) (Final) Few Mixed Body Gabriela Isolated No Pathogens IsolatedMayo [facility]cadia-LufkinXR ABD SERIES W/PA CXR 2020-11-01 03:48:37 [facility] (LUF/ABI/SA)Name: HONG BETH : 1985 Sex: FPROCEDURE INFORMATION:Exam: XR [...] CDT.Dictated By: FILIPPO RAMOSDate: 11/01/2020 03:48[facility]ANTINEHEPATIC FUNCTION PANEL (LIVER)2020-11-01 02:14:00 Test Item Value [...] (test code = 0.1 mg/dl 0.0-1.1 IBIL) [address] LAB CHEM [id number] 01:57:00 Test Item Value Reference Range Interpretation [...] = CREA) 0.5 mg/dl 0.6-1.3 L ER [address] [place] [address]-LufkinURINALYSIS WITH [id number] 01:56:00 Test Item Value Reference Range Interpretation Comments Color (test code = Light-Yellow UCOLR) Clarity (test code = Clear UCLAR) Glucose (test code = 50 NEGATIVE A UGLUC) Bilirubin (test code NEGATIVE NEGATIVE N = UBILI) Ketones (test code = NEGATIVE NEGATIVE N UKET) Specific Arjay 1.025 1.005-1.030 A (test code = USPGR) [...] 41-50 0-10 A (test code = SQEP) [address] LAB CBC WITH AUTO [id number] 01:55:00 Test Item Value Reference Range Interpretation [...] = IG%) 0.4 % 0.0-0.[address] [place], [place] [address]HEPATIC FUNCTION PANEL (LIVER)2020-10-05 01:26:00 Test Item Value [...] code = 0.1 mg/dl 0.0-1.1 IBIL) er [address] [place], [place] [address]Rzczaf-[id number] 01:26:00 Test Item Value Reference Range Interpretation Comments Lipase (test code = LIPA) 154 U/L 73-[address] [place] [address] LAB CHEM [id number] 01:15:00 Test Item Value Reference Range Interpretation [...] code = CREA) 0.6 mg/dl 0.6-1.[address] [place] [address] LAB , [id number] 01:14:00 Test Item Value Reference Range Interpretation Comments (Urine) (test code = Negative PREGU) er [address] [place] [address] LAB CBC WITH AUTO [id number] 01:13:00 Test Item Value Reference Range Interpretation [...] = IG%) 0.9 % 0.0-0.4 H er [address] [place], [place] [address]Rlevqs-[id number] 04:21:00 Test Item Value Reference Range Interpretation Comments Lipase (test code = LIPA) 146 U/L 73-393 [facility] CountyHEPAT[facility] FUNCTION PANEL (LIVER)2020-09-18 04:21:00 Test Item Value [...] 0.1 mg/dl 0.0-1.1 IBIL) [facility] CountyAMYLASE, [id number] 04:21:00 Test Item Value Reference Range Interpretation Comments Amylase (test code = AMYL) 47 U/L 25-115 [facility] WITH [id number] 03:06:00 Test Item Value Reference Range Interpretation Comments Color (test code = Light-Yellow UCOLR) Clarity (test code = Clear UCLAR) Glucose (test code = NEGATIVE NEGATIVE N UGLUC) Bilirubin (test code NEGATIVE NEGATIVE N = UBILI) Ketones (test code = TRACE NEGATIVE A UKET) Specific Arjay 1.025 1.005-1.030 A (test code = USPGR) Blood (test code = NEGATIVE NEGATIVE N UBLD) PH (test code = UPH) 5.5 4.5-8.0 A Protein (test code = NEGATIVE NEGATIVE N UPROT) Urobilinogen (test 0.2 See_Comment N [Automat ed message] code = U UROB) The system [employer] generated this result transmit michael reference [...] SEEN A Epithelial (test code = NSE) [facility] LAB CHEM [id number] 02:51:00 Test Item Value Reference Range Interpretation [...] (test code = CREA) 0.6 mg/dl 0.6-1.3 [facility] LAB CBC WITH AUTO [id number] 02:50:00 Test Item Value Reference Range Interpretation [...] % 0.0-0.4 H [facility]-LukinXR ABDOMEN 1 VIEW (KUB)2020-09-12 01:51:21 [facility] ([facility]/ABI/SA)Name: HONG BETH : 1985 Sex: FPROCEDURE INFORMATION:Exam: XR [...] CDT.Dictated By: CELESTINO ALLENDate: 09/12/2020 01:50[facility] CBC WITH AUTO [id number] 01:29:00 Test Item Value Reference Range Interpretation [...] IG%) 0.4 % 0.0-0.4 [facility] LAB CHEM [id number] 01:28:00 Test Item Value Reference Range Interpretation [...] 0.6 mg/dl 0.6-1.3 [facility] WITH [id number] 03:04:00 Test Item Value Reference Range Interpretation Comments Color (test code = Yellow UCOLR) Clarity (test code = Clear UCLAR) Glucose (test code = 100 NEGATIVE A UGLUC) Bilirubin (test code = NEGATIVE NEGATIVE N UBILI) Ketones (test code = TRACE NEGATIVE A UKET) Specific Arjay (test >=1.030 1.005-1.030 A code = USPGR) Blood (test code = NEGATIVE NEGATIVE N UBLD) PH (test code = UPH) 5.5 4.5-8.0 A Protein (test code = NEGATIVE NEGATIVE N UPROT) Urobilinogen (test code 0.2 See_Comment N [Au tomated message] = U UROB) The system [employer] generated this result transmitted ref erence range: [...] Seen,Trace A UBACT) [facility]-[id number] 03:01:00 Test Item Value Reference Range Interpretation [...] ( 4 - SerumAlbumin)] EGFR if >60 Cambodian (test code mL/min/1.73m\\ = EGFRAA) S\\2 EGFR if Non- >60 Estimate d Glomerular Cambodian (test code mL/min/1.73m\\ Filtrat ion Rate (eGFR) [...] hronic kidney failure. [facility]iaXuivrl-[id number] 03:01:00 Test Item Value Reference Range Interpretation Comments Lipase (test code = LIPA) 145 U/L 73-393 [facility] LAB TEST, Serum Qualitative 2020-08-22 02:48:00 Test Item Value Reference Range Interpretation Comments (Serum) (test code = Negative PREGS) [facility] LAB CBC WITH AUTO [id number] 02:28:00 Test Item Value Reference Range Interpretation [...] IG%) 0.5 % 0.0-0.4 H [facility] CountyHEPATIC FUNCTION PANEL (LIVER)2020-08-06 02:59:00 Test Item Value [...] code = 0.1 mg/dl 0.0-1.1 IBIL) ER [address] [place], [place] [address]Abuyzs-[id number] 02:59:00 Test Item Value Reference Range Interpretation Comments Lipase (test code = LIPA) 167 U/L 73-[address] [place] [address]-LufkinURINALYSIS WITH [id number] 02:48:00 Test Item Value Reference Range Interpretation Comments Color (test code = UCOLR) Yellow Clarity (test code = UCLAR) Clear Glucose (test code = UGLUC) NEGATIVE NEGATIVE N Bilirubin (test code = UBILI) NEGATIVE NEGATIVE N Ketones (test code = UKET) NEGATIVE NEGATIVE N Specific Arjay (test code = >=1.030 1.005-1.030 A USPGR) [...] code = UBACT) 4+ None Seen,Trace A [address]-[place]CT ABDOMEN/PELVIS W/O [id number] 02:34:52ER 16 R/O KIDNEY STONE [facility] ([facility]/)Name: HONG BETH : [id number] Sex: FPROCEDURE INFORMATION:Exam: CT Abdomen And Pelvis [...] CDT.Dictated By: HOLLIS FERRERADate: 08/06/2020 02:34[facility] LAB CHEM 8 [...] code = CREA) 0.4 mg/dl 0.6-1.[address] LAB CBC WITH AUTO [id number] 02:29:00 Test Item Value Reference Range Interpretation [...] = IG%) 0.7 % 0.0-0.4 H ER [address] [place], [place] [address]Smdhrc-[id number] 09:31:00 Test Item Value Reference Range Interpretation Comments Lipase (test code = LIPA) 117 U/L 73-393 [facility] CountyHEPATIC FUNCTION PANEL (LIVER)2020-07-19 09:31:00 Test Item Value [...] (test code = 0.3 mg/dl 0.0-1.1 IBIL) [facility] 2 VIEWS FLAT / [id number] 09:22:50[facility] ([facility]/ABI/SA)Name: HONG BETH : [id number] Sex: FProcedure: XR ABDOMEN 2 VIEWS FLAT / UPRIGHTOrder Date: 07/19/2020 8:40 AMOrdering Provider: REHAN COTTON .Clinical Indication: [id number]: Abdominal painComparison: July 05, 2020Findings:Postoperative change consisting [...] 09:17[facility] LAB CHEM [id number] 09:10:00 Test Item Value Reference Range Interpretation [...] code = CREA) 0.5 mg/dl 0.6-1.3 L [facility] LAB CBC WITH AUTO [id number] 09:09:00 Test Item Value Reference Range Interpretation [...] code = IG%) 0.7 % 0.0-0.4 H [facility] LAB URINALYSIS WITHOUT [id number] 09:08:00 Test Item Value Reference Range Interpretation Comments Color (test code = UCOLR) Yellow Lt. Yellow A Clarity (test code = UCLAR) Clear Glucose (test code = UGLUC) Negative Negative N Bilirubin (test code = UBILI) Negative Negative N Ketones (test code = UKET) Negative Negative N Specific Arjay (test code = USPGR) >=1.030 1.005-1.030 A Blood (test code = UBLD) Negative Negative N PH (test code = UPH) 6.0 4.5-8.0 A Protein (test code = UPROT) Negative Negative N Urobilinogen (test code = U UROB) 0.2 >0.2 N Nitrite (test code = UNITR) Negative Negative N Leukocyte Esterase (test code = Negative Negative N ULEUK) [facility] HospitalkinCULTURE, [id number] 08:00:00Specimen: Urine SpecimensCollected: 07/05/2020 03:00 Status: Final Last Updated: 07/07/2020 08:00 CULTURE (Final) (Final) No Growth After 48 Hours[facility] ABDOMEN 1 VIEW (KUB)2020-07-05 04:07:04 [facility] ([facility]/SA)Name: HONG BETH : [id number] Sex: FPROCEDURE INFORMATION:Exam: XR Abdomen, 1 ViewExam [...] CDT.Dictated By: OSKAR CRANEte: 07/05/2020 04:06[facility] , [id number] 03:54:00 Test Item Value Reference Range Interpretation Comments (Urine) (test code = Negative PREGU) [facility] LAB CHEM [id number] 03:53:00 Test Item Value Reference Range Interpretation [...] code = CREA) 0.5 mg/dl 0.6-1.3 L [facility] LAB CBC WITH AUTO [id number] 03:51:00 Test Item Value Reference Range Interpretation [...] 0.4 % 0.0-0.4 [facility] CenterkinURINALYSIS WITH [id number] 03:33:00 Test Item Value Reference Range Interpretation Comments Color (test code = UCOLR) Yellow Clarity (test code = UCLAR) Clear Glucose (test code = UGLUC) NEGATIVE NEGATIVE N Bilirubin (test code = UBILI) Small NEGATIVE A Ketones (test code = UKET) TRACE NEGATIVE A Specific Arjay (test code = USPGR) 1.020 1.005-1.030 A [...] None Seen,Trace N [facility]-[place]CT ABDOMEN/PELVIS W/[id number] 16:44:35 [facility] ([facility]/SA)Name: HONG BETH : [id number] Sex: FProcedure: CT ABDOMEN/PELVIS W/CONTRASTOrder date: 06/07/2020 3:47 PMOrdering Provider: REHAN Farrellinical Indication: [id number]: Left flank painComparison: 06/07/20Technique: Multiple axial helical [...] MD 06/07/20204:38 PMDictated By: WILEY VELÁZQUEZDate: 06/07/2020 16:38[facility]INALYSIS WITH [id number] 15:22:00 Test Item Value Reference Range Interpretation Comments Color (test code = UCOLR) Yellow Clarity (test code = UCLAR) Clear Glucose (test code = UGLUC) NEGATIVE NEGATIVE N Bilirubin (test code = UBILI) NEGATIVE NEGATIVE N Ketones (test code = UKET) NEGATIVE NEGATIVE N Specific Arjay (test code = USPGR) 1.020 1.005-1.030 A [...] code = UBACT) Trace None Seen,Trace N [facility] LAB CHEM [id number] 15:10:00 Test Item Value Reference Range Interpretation [...] code = CREA) 0.4 mg/dl 0.6-1.3 L [facility] LAB CBC WITH AUTO [id number] 15:08:00 Test Item Value Reference Range Interpretation [...] code = IG%) 0.5 % 0.0-0.4 H [facility] ABD/ PELVIS W/O CON (RENAL STONE)2020-06-07 14:56:05[facility] ([place]/[facility]/SA)Name: HONG BETH : [id number] Sex: FProcedure: CT ABD/ PELVIS W/O CON (RENAL STONE)Order date: 06/07/2020 2:18 PMOrdering Provider: REHAN Farrellinical Indication: [id number]: Left flank painComparison: 05/31/20TECHNIQUE: Using a helical [...] PMDictated By: WILEY VELÁZQUEZDate: 06/07/2020 14:49[facility]/PELVIS W/O [id number] 12:27:07NPO 4 hours. Do not withhold meds hyst [facility] ([facility]/)Name: HONG BETH : [id number] Sex: FProcedure: CT ABDOMEN/PELVIS W/O CONTRASTOrder Date: 05/31/2020 10:25 AMOrdering Provider: ME ANN MARIE MCBRIDEClinical Indication: [id number]: Pain radiating to right flankComparison: March 20, [...] MD 05/31/202012:20 PMDictated By: FARZAD DEWITT.Date: 05/31/2020 12:20[facility] [id number] 11:48:00 Test Item Value Reference Range Interpretation Comments Lipase (test code = LIPA) 116 U/L 73-393 [facility] LAB URINALYSIS WITHOUT [id number] 10:59:00 Test Item Value Reference Range Interpretation Comments Color (test code = UCOLR) Light yellow Lt. Yellow A Clarity (test code = UCLAR) Clear Glucose (test code = UGLUC) Negative Negative N Bilirubin (test code = UBILI) Negative Negative N Ketones (test code = UKET) Negative Negative N Specific Arjay (test code = 1.025 1.005-1.030 A USPGR) Blood (test code = UBLD) Negative Negative N PH (test code = UPH) 6.0 4.5-8.0 A Protein (test code = UPROT) Negative Negative N Urobilinogen (test code = U 0.2 >0.2 N UROB) Nitrite (test code = UNITR) Negative Negative N Leukocyte Esterase (test code = Negative Negative N ULEUK) [facility] LAB CBC WITH AUTO [id number] 10:58:00 Test Item Value Reference Range Interpretation [...] code = IG%) 0.5 % 0.0-0.4 H [facility] LAB CHEM [id number] 10:53:00 Test Item Value Reference Range Interpretation [...] mg/dl 0.6-1.3 L [facility]XR ABDOMEN 1 VIEW (KUB)2020-04-25 21:02:16 [facility] ([place]/ABI/SA)Name: HONG BETH : [id number] Sex: FPROCEDURE INFORMATION:Exam: XR Abdomen, 1 ViewExam [...] PM CDT. Dictated By: TEJAS RODRIGUEZDate: 04/25/2020 21:02[facility]INEURINALYSIS WITH [id number] 18:57:00 Test Item Value Reference Range Interpretation Comments Color (test code = UCOLR) Yellow Lt. Yellow A Clarity (test code = UCLAR) Clear Glucose (test code = UGLUC) Negative Negative N Bilirubin (test code = UBILI) Negative Negative N Ketones (test code = UKET) Negative Negative N Specific Arjay (test code = 1.020 1.005-1.030 A USPGR) [...] code = UBACT) 4+ None Seen,Trace A [facility] LAB CBC WITH AUTO [id number] 18:55:00 Test Item Value Reference Range Interpretation [...] of Platel et clumping was entered by [id number] on 04/25/2020 18:5 5 [facility] LAB CHEM [id number] 18:17:00 Test Item Value Reference Range Interpretation [...] code = CREA) 0.4 mg/dl 0.6-1.[address] [facility], ANAEROBE [id number] 15:20:00FIRST DRAW = 1 aerobic and 1 anerobic CultureSpecimen: BloodCollected: 03/20/2020 18:30 Status: Final Last Updated: 03/26/2020 15:19 (1) FIRST DRAW = 1 aerobic and 1 anerobic Culture CULTURE (Final) (Final) No Growth After [address] [facility] [place], [id number] 15:20:00FIRST DRAW = 1 aerobic and 1 anerobic CultureSpecimen: BloodCollected: 03/20/2020 18:30 Status: Final Last Updated: 03/26/2020 15:19 (1) FIRST DRAW = 1 aerobic and 1 anerobic Culture CULTURE (Final) (Final) No Growth After [facility] DaysA[facility] CenterLufkinCT ABDOMEN/PELVIS W/[id number] 21:46:442 weeks s/p adhesolysis. Vomiting/pain/fever. Please do CT with PO and IV contrastProcedures: CT ABDOMEN/PELVIS W/CONTRASTExam Date: 03/20/2020 6:04 PMOrdering Physician: REHAN COTTONClinical Indication: [id number]: Abdominal painComparison: CT abdomen/pelvis, 8/27/20TECHNIQUE: Spiral multislice scanning was obtained from the [...] final report was electronically signed by Dr Elmre Juárez MD03/20/2020 9:40 PMDictated By: ELMER PHAMDate:03/20/2020 21:40[facility]INEHEPATIC FUNCTION PANEL (LIVER)2020-03-20 19:24:00 Test Item Value [...] 0.3 mg/dl 0.0-1.1 IBIL) [facility] CountyLIPASE2020-09-20 19:24:00 Test Item Value Reference Range Interpretation Comments Lipase (test code = LIPA) 69 U/L 73-393 L [facility] CountyMAGNESIUM2020-09-20 19:24:00 Test Item Value Reference Range Interpretation Comments Magnesium (test code = MG) 2.0 mg/dl 1.6-2.6 [facility] LAB CHEM [id number] 18:43:00 Test Item Value Reference Range Interpretation [...] code = CREA) 0.5 mg/dl 0.6-1.3 L [facility] LAB LACTIC [id number] 18:42:00 Test Item Value Reference Range Interpretation Comments LACTATE (test code = 2.50 mmol/l 0.90-1.70 HH R&RB sy rene hassan rn LAC) @1842 [facility] LAB CBC WITH AUTO [id number] 18:41:00 Test Item Value Reference Range Interpretation [...] 0.4 % 0.0-0.4 [facility]-LufkinSP PERC PLMNT MIDLINE NO PORT > 5 y/o W/IMAGING 2020-03-15 13:21:10Procedure: SP PERC PLMNT MIDLINE NO PORT > 5 y/o W/IMAGINGOrder Date: 03/15/2020 10:06 AMOrderingProvider: LIZBETH RUBIOERClinical Indication: Vascular accessTechnique:The patient was [...] secured to the skin in the usual fashion.Cut Off Man images were recorded and stored in the [facility] fordocumentation. The patient tolerated the procedure well and there were noimmediate complications.Impression:1. Successful upper extremity vascular access.This final report was electronically signed by Dr Farzad Dewitt MD 03/15/20201:14 PMDictated By: FARZAD DEWITTDate: 03/15/2020 13:14[facility] (IN HOUSE)2020-03-13 21:03:00 Test Item Value [...] lection of specimen. [facility]-[place]kinXR ABD SERIES W/PA [id number] 17:33:07 Procedure: XR ABD SERIES W/PA CXROrder [...] PMDictated By: GLORY BENITEZKDate: 03/13/2020 17:26[facility]STAT LAB CBC WITH AUTO [id number] 17:23:00 Test Item Value Reference Range Interpretation [...] by [id number] on 03/13/2020 17:23 [facility] CountyLIPASE2020-09-13 17:23:00 Test Item Value Reference Range Interpretation Comments Lipase (test code = LIPA) 61 U/L 73-393 L [facility] CountyHEPATIC FUNCTION PANEL (LIVER)2020-03-13 17:23:00 Test Item Value [...] mg/dl 0.0-1.1 IBIL) [facility]-[place]kinURINALYSIS WITH [id number] 16:54:00 Test Item Value Reference Range Interpretation Comments Color (test code = UCOLR) Yellow Lt. Yellow A Clarity (test code = UCLAR) Clear Glucose (test code = UGLUC) Negative Negative N Bilirubin (test code = UBILI) Negative Negative N Ketones (test code = UKET) Negative Negative N Specific Arjay (test code = >=1.030 1.005-1.030 A USPGR) [...] code = UBACT) 4+ None Seen,Trace A [facility] LAB CHEM [id number] 16:37:00 Test Item Value Reference Range Interpretation [...] mg/dl 0.6-1.3 L [facility] HospitalkinSP PERC PLMNT MIDLINE NO PORT > 5 [...] MD 03/02/202012:17 PMDictated By: GLORY BENITEZKDate: 03/02/2020 12:17[facility] ([facility]SE)2020-03-01 18:48:00 Test Item Value [...] lection of specimen. [facility]-LufkinPT AND [id number] 11:51:00 Test Item Value Reference Range Interpretation Comments Protime (test code 9.8 seconds 9.5-12.1 = PT) INR (test code = 0.9 0.9-1.1 INR results are intended INR) ONLY to monitor Oral Anticoagulant t herapy in stablized patie nts. The INR Therapeutic Range is 2.0 - 3.0 Patie nts with a mechanical he art, the INR Range is 2. 5 - 3.5 [facility] [id number] 11:51:00 Test Item Value Reference Range Interpretation Comments aPTT (test code = PTT) 27.4 seconds 23.9-30.7 [facility] HospitalkinCB (HEMOGRAM ONLY)2020-03-01 11:44:00 Test Item Value [...] WILL BE NOTED ON THE RE PORT. [facility] HospitalfkinCULTURE, [id number] 08:08:00Specimen: Urine RandomCollected: 02/25/2020 11:27 Status: Final Last Updated: 02/27/2020 08:08 CULTURE (Final) (Final) No Growth After 48 HoursAurora Health Care Health Centerkin [id number] 05:38:00 Test Item Value Reference Range Interpretation [...] 0.5-1.3 code = CREA) EGFR if >60 Cambodian (test code mL/min/1.73m\\ = EGFRAA) S\\2 EGFR if Non- >60 Estimate d Glomerular Cambodian (test code mL/min/1.73m\\ Filtrat ion Rate (eGFR) [...] code = TSH) 0.04 mIU/L 0.35-3.74 L [facility] [place][note 2] WITH AUTO [id number] 05:18:00 Test Item Value Reference Range Interpretation [...] 0.5 % 0.0-0.4 H IG%) CBC AUTO diffMay[facility] Clinic [facility]-LufkinCORONAVIRUS 2019 (IN HOUSE)2020-02-25 14:06:00 Test Item Value [...] lection of specimen. [facility]-LufkinURINALYSIS WITH [id number] 12:56:00 Test Item Value Reference Range Interpretation Comments Color (test code = UCOLR) Yellow Lt. Yellow A Clarity (test code = UCLAR) Slightly Cloudy Glucose (test code = UGLUC) Negative Negative N Bilirubin (test code = UBILI) Negative Negative N Ketones (test code = UKET) Negative Negative N Specific Arjay (test code = >=1.030 1.005-1.030 A USPGR) [...] Trace None Seen,Trace N [facility] CountyLIPASE2020-08-27 12:52:00 Test Item Value Reference Range Interpretation Comments Lipase (test code = LIPA) 90 U/L 73-393 [facility] CountyHEPATIC FUNCTION PANEL (LIVER)2020-02-25 12:52:00 Test Item Value [...] mg/dl 0.0-1.1 IBIL) [facility] HospitalkinCT ABDOMEN/PELVIS W/[id number] 12:42:41NPO 4 hours. Do not withhold medsProcedure: [...] PMDictated By: WILEY VELÁZQUEZDate: 02/25/2020 12:36[facility] CHEM 8 2020-02-25 12:07:00 Test [...] code = CREA) 0.5 mg/dl 0.6-1.3 L [facility] LAB CBC WITH AUTO [id number] 12:05:00 Test Item Value Reference Range Interpretation [...] (test code = IG%) 0.3 % 0.0-0.4 [facility] LAB CBC WITH AUTO [id number] 03:15:00 Test Item Value Reference Range Interpretation [...] code = IG%) 0.6 % 0.0-0.4 H [facility] LAB CHEM [id number] 02:55:00 Test Item Value Reference Range Interpretation [...] = CREA) 0.5 mg/dl 0.6-1.3 L [facility] ABDOMEN 1 VIEW (KUB)2020-02-25 02:45:30 PROCEDURE INFORMATION:Exam: [...] By: JORGE LUIS WHITEDate: 02/25/2020 02:45[facility] , URINE 2020-02-25 01:12:00 Test Item Value Reference Range Interpretation Comments (Urine) (test code = Negative PREGU) [facility]STAT LAB URINALYSIS WITHOUT [id number] 01:11:00 Test Item Value Reference Range Interpretation Comments Color (test code = UCOLR) Yellow Lt. Yellow A Clarity (test code = UCLAR) Clear Glucose (test code = UGLUC) Negative Negative N Bilirubin (test code = UBILI) Negative Negative N Ketones (test code = UKET) Negative Negative N Specific Arjay (test code = USPGR) >=1.030 1.005-1.030 A Blood (test code = UBLD) Negative Negative N PH (test code = UPH) 5.5 4.5-8.0 A Protein (test code = UPROT) Negative Negative N Urobilinogen (test code = U UROB) 0.2 >0.2 N Nitrite (test code = UNITR) Negative Negative N Leukocyte Esterase (test code = Negative Negative N ULEUK) [facility]XR ABDOMEN 1 VIEW (KUB)2020-02-10 06:46:05 Procedure: XR ABDOMEN 1 VIEW (KUB)Order date: 02/10/2020 4:01 AMOrdering Provider: JUAN Galiciainical Indication: Abdominal painComparison: NoneFindings:There is no small or large bowel distention.There is no pneumoperitoneum.There are no suspicious calcifications.There is no skeletal abnormality.Impression:1. Negative single view abdomen.This final report was electronically signed by Dr Wiley Velázquez MD 02/10/20206:39 AMDictated By: WILEY VELÁZQUEZDate: 02/10/2020 06:39[facility] RENAL [facility] BLADDER (KIDNEYS)2020-02-10 05:31:33PROCEDURE INFORMATION:Exam: [...] AM CDT.Dictated By: JORGE LUIS WHITEDate: 02/10/2020 05:31[facility] CONSTANTINEURINALYSIS WITH [id number] 05:10:00 Test Item Value Reference Range Interpretation Comments Color (test code = UCOLR) Yellow Lt. Yellow A Clarity (test code = UCLAR) Clear Glucose (test code = UGLUC) >=1000 Negative A Bilirubin (test code = UBILI) Negative Negative N Ketones (test code = UKET) Negative Negative N Specific Arjay (test code = 1.015 1.005-1.030 A USPGR) [...] None Seen,Trace N [facility] ArcadiaQifvrm-[id number] 04:42:00 Test Item Value Reference Range Interpretation Comments Lipase (test code = LIPA) 91 U/L 73-393 [facility] HospitalfkinHEPATIC FUNCTION PANEL (LIVER)2020-02-10 04:42:00 Test Item Value [...] (test code = 0.2 mg/dl 0.0-1.1 IBIL) [facility] LAB CHEM [id number] 04:27:00 Test Item Value Reference Range Interpretation [...] (test code = CREA) 0.6 mg/dl 0.6-1.3 [facility] , [id number] 04:24:00 Test Item Value Reference Range Interpretation Comments (Urine) (test code = Negative PREGU) [facility] LAB CBC WITH AUTO [id number] 04:22:00 Test Item Value Reference Range Interpretation [...] % 0.0-0.4 H [facility]-[place]kinCT L SPINE W/O [id number] 12:46:24 Procedure: CT L SPINE W/O CONTRASTOrder date: 01/25/2020 11:46 AMOrdering Provider: DONALD Healyinical Indication: [id number]: Low back painComparison: NoneTechnique: Using a multislice [...] PMDictated By: WILEY VELÁZQUEZDate: 01/25/2020 12:39[facility]STANTINEHEPATIC FUNCTION PANEL (LIVER)2019-12-09 05:49:00 Test Item Value [...] (test code = 0.3 mg/dl 0.0-1.1 IBIL) [address]-[id number] 05:49:00 Test Item Value Reference Range Interpretation Comments Lipase (test code = LIPA) 105 U/L 73-[address] LAB CHEM [id number] 05:06:00 Test Item Value Reference Range Interpretation [...] code = CREA) 0.5 mg/dl 0.6-1.[address] LAB CBC WITH AUTO [id number] 05:04:00 Test Item Value Reference Range Interpretation [...] (test code = IG%) 0.4 % 0.0-0.[address]-[id number] 02:23:00 Test Item Value Reference Range Interpretation [...] ( 4 - SerumAlbumin)] EGFR if >60 Cambodian (test code mL/min/1.73m\\ = EGFRAA) S\\2 EGFR if Non- >60 Estimate d Glomerular Cambodian (test code mL/min/1.73m\\ Filtrat ion Rate (eGFR) [...] hronic kidney failure. [facility]-LufkinURINALYSIS WITH [id number] 02:11:00 Test Item Value Reference Range Interpretation Comments Color (test code = UCOLR) Yellow Lt. Yellow A Clarity (test code = UCLAR) Clear Glucose (test code = UGLUC) Negative Negative N Bilirubin (test code = UBILI) Negative Negative N Ketones (test code = UKET) Trace Negative A Specific Arjay (test code = USPGR) >=1.030 1.005-1.030 A [...] None Seen,Trace A [facility]kinSL[facility] CBC WITH AUTO [id number] 02:03:00 Test Item Value Reference Range Interpretation [...] 0.4 % 0.0-0.4 [facility] HospitalkinCT ABDOMEN/PELVIS W/[id number] 22:43:00NPO 4 hours. Do not withhold meds [...] 0.5-1.3 code = CREA) EGFR if >60 Cambodian (test code mL/min/1.73m\\ = EGFRAA) S\\2 EGFR if Non- >60 Estimate d Glomerular Cambodian (test code mL/min/1.73m\\ Filtrat ion Rate (eGFR) [...] hronic kidney failure. [facility] [place]ufkinAMYLASE, [id number] 22:05:00 Test Item Value Reference Range Interpretation Comments Amylase (test code = AMYL) 43 U/L 25-115 [facility]cadiaCpehrs-[id number] 22:05:00 Test Item Value Reference Range Interpretation Comments Lipase (test code = LIPA) 95 U/L 73-393 [facility] [place]ufkinURINALYSIS WITH [id number] 21:49:00 Test Item Value Reference Range Interpretation Comments Color (test code = UCOLR) Yellow Lt. Yellow A Clarity (test code = UCLAR) Clear Glucose (test code = UGLUC) Negative Negative N Bilirubin (test code = UBILI) Negative Negative N Ketones (test code = UKET) 15 Negative A Specific Arjay (test code = USPGR) >=1.030 1.005-1.030 A [...] code = UBACT) 3+ None Seen,Trace A [facility] [place]-fkinSTAT LAB CBC WITH AUTO [id number] 21:45:00 Test Item Value Reference Range Interpretation [...] IG%) 0.4 % 0.0-0.4 [facility] LAB , [id number] 21:36:00 Test Item Value Reference Range Interpretation Comments (Urine) (test code = Negative PREGU) [facility] CenterkinMN ABDOMEN/PELVIS W/O [id number] 03:56:36 PROCEDURE INFORMATION:Exam: CT Abdomen And Pelvis [...] AM CDT.Dictated By: AMY ORDOÑEZDate: 09/20/2019 03:56 [facility] [id number] 02:07:00 Test Item Value Reference Range Interpretation [...] ( 4 - SerumAlbumin)] EGFR if >60 Cambodian (test code mL/min/1.73m\\ = EGFRAA) S\\2 EGFR if Non- >60 Estimate d Glomerular Cambodian (test code mL/min/1.73m\\ Filtrat ion Rate (eGFR) [...] hronic kidney failure. [facility] [place]-LufkinXR ABDOMEN 2 VIEWS FLAT / [id number] 02:01:15PROCEDURE INFORMATION:Exam: XR Abdomen, 2 ViewsExam date [...] 2:01 AM CDT.Dictated By: AMY ORDOÑEZDate: 09/20/2019 02:01[facility]STANTINEURINALYSIS WITH MICROSCOPIC 2019-09-20 01:56:00 Test Item Value Reference Range Interpretation Comments Color (test code = UCOLR) Yellow Lt. Yellow A Clarity (test code = UCLAR) Clear Glucose (test code = UGLUC) >=1000 Negative A Bilirubin (test code = UBILI) Negative Negative N Ketones (test code = UKET) Trace Negative A Specific Arjay (test code = USPGR) >=1.030 1.005-1.030 A [...] code = UBACT) 2+ None Seen,Trace A [facility] LAB CBC WITH AUTO [id number] 01:38:00 Test Item Value Reference Range Interpretation [...] % 0.0-0.4 H [facility] [place] ABDOMEN/PELVIS W/[id number] 04:23:30 PROCEDURE INFORMATION:Exam: CT Abdomen And Pelvis [...] CDT.Dictated By: SETH MEDINADate: 08/17/2019 04:23[facility] CON[id number] 03:34:00 Test Item Value Reference Range Interpretation Comments Lipase (test code = LIPA) 67 U/L 73-393 L [facility] [place]-[id number] 03:34:00 Test Item Value Reference Range Interpretation [...] ( 4 - SerumAlbumin)] EGFR if >60 Cambodian (test code mL/min/1.73m\\ = EGFRAA) S\\2 EGFR if Non- >60 Estimate d Glomerular Cambodian (test code mL/min/1.73m\\ Filtrat ion Rate (eGFR) [...] hronic kidney failure. [facility] [place] LAB CBC WITH AUTO [id number] 03:19:00 Test Item Value Reference Range Interpretation [...] % 0.0-0.4 H [facility] [place] Hospit[facility]inURINALYSIS WITH [id number] 03:10:00 Test Item Value Reference Range Interpretation Comments Color (test code = UCOLR) YELLOW Clarity (test code = UCLAR) CLEAR Glucose (test code = UGLUC) NEGATIVE NEGATIVE N Bilirubin (test code = UBILI) NEGATIVE NEGATIVE N Ketones (test code = UKET) NEGATIVE NEGATIVE N Specific Arjay (test code = 1.025 1.005-1.030 A USPGR) [...] code = UBACT) 1+ None Seen,Trace A [facility] LAB , [id number] 03:03:00 Test Item Value Reference Range Interpretation Comments (Urine) (test code = Negative PREGU) ONLY AVAILABLE 8A-12MN[facility]-LufkinED2 [id number] 20:37:00 Test Item Value Reference Range Interpretation [...] 0.6 mg/dl 0.6-1.2 [facility] [place]-LufkinED2 [id number] 20:28:00 Test Item Value Reference Range Interpretation [...] code = MPV) 7.1 fL 8.0-11.0 A [facility] [place]-fkinCULTURE, [id number] 08:44:27mrv4Gzpvpyav: Urine SpecimensCollected: 07/12/2019 15:00 Status: Final Last Updated: 2019 08:44 (1) err7 Culture Result (Final) (Final) Moderate Mixed Body Gabriela Isolated No Pathogens Isolated No Further Workup [facility]formedMeHoward [facility]-LufkinFL LIMITED [id number] 17:53:41Procedures: [place] LIMITED IVPExam Date: 07/12/2019 3:21 PMOrdering Physician: REHAN Farrellinical Indication: [id number]: Flank painComparison: CT abdomen/pelvis, 05/17/19Findings: Frontal radiographs [...] PMDictated By: ELMER PHAMDate: 07/12/2019 17:47[facility] [id number] 15:56:00 Test Item Value Reference Range Interpretation Comments Lipase (test code = LIPA) 97 U/L 73-[address]-LufkinHEPATIC FUNCTION PANEL (LIVER)2019-07-12 15:56:00 Test [...] (test code = 0.2 mg/dl 0.0-1.1 IBIL) [address]-[place]ufkinURINALYSIS WITH [id number] 15:51:00 Test Item Value Reference Range Interpretation Comments Color (test code = UCOLR) YELLOW Clarity (test code = UCLAR) CLEAR Glucose (test code = UGLUC) NEGATIVE NEGATIVE N Bilirubin (test code = UBILI) NEGATIVE NEGATIVE N Ketones (test code = UKET) NEGATIVE NEGATIVE N Specific Arjay (test code = 1.020 1.005-1.030 A USPGR) [...] code = UBACT) 4+ None Seen,Trace A [address] LAB CHEM [id number] 15:09:00 Test Item Value Reference Range Interpretation [...] (test code = CREA) 0.6 mg/dl 0.6-1.[address] LAB CBC WITH AUTO [id number] 15:08:00 Test Item Value Reference Range Interpretation [...] (test code = IG%) 0.4 % 0.0-0.[address]-LufkinCT ABDOMEN/PELVIS W/[id number] 16:33:46NPO 4 hours. Do not withhold medsProcedures: CT ABDOMEN/PELVIS W/CONTRASTExam Date: 05/17/2019 1:31 PMOrdering Physician: MERLE LYNNEClinical Indication: [id number]: Abdominal painComparison: CT abdomen/pelvis, 04/09/19TECHNIQUE: Spiral multislice [...] MD05/17/2019 4:27 PMDictated By: ELMER PHAMDate: 05/17/2019 16:27[facility] [id number] 16:20:00 Test Item Value Reference Range Interpretation Comments Lipase (test code = LIPA) 70 U/L 73-393 L [facility] LAB CHEM [id number] 15:24:00 Test Item Value Reference Range Interpretation [...] code = CREA) 0.5 mg/dl 0.6-1.3 L [facility] LAB LACTIC [id number] 15:23:00 Test Item Value Reference Range Interpretation Comments LACTATE (test code = LAC) 1.39 mmol/l 0.90-1.70 [facility] LAB CBC WITH AUTO [id number] 15:21:00 Test Item Value Reference Range Interpretation [...] % 0.0-0.4 H [facility] [place]-LufkinURINALYSIS WITH [id number] 15:08:00 Test Item Value Reference Range Interpretation Comments Color (test code = UCOLR) YELLOW Clarity (test code = UCLAR) CLEAR Glucose (test code = UGLUC) NEGATIVE NEGATIVE N Bilirubin (test code = UBILI) NEGATIVE NEGATIVE N Ketones (test code = UKET) NEGATIVE NEGATIVE N Specific Arjay (test code = 1.025 1.005-1.030 A USPGR) [...] None Seen,Trace A [facility] [place] hospitalCT ANGIO HEAD W/WO [id number] 16:28:5720 g Cathlon Above the Antecubital or higher requiredProcedure: CT ANGIO HEAD W/WO CONTRASTOrder Date: 05/12/2019 3:30 PMOrdering Provider: REHAN VANG SA NDERSClinical Indication: [id number]: HeadacheComparison: NoneTechnique: Using a helical scanner, sequential axial imaging of the brain wasobtained before and after the administration of the contrast medium. At anindependent workstation, 3-D reconstructions of the [place] wereobtained.This examwas performed according [...] PMDictated By: FARZAD DEWITTDate: 05/12/2019 16:22[facility] CONSTANTINECT ABDOMEN/PELVIS W/[id number] 14:36:05NPO 4 hours. Do not withhold medsProcedure: [...] PMDictated By: GLORY BENITEZKDate: 04/09/2019 14:29[facility] WITH AUTO [id number] 09:02:00 Test Item Value Reference Range Interpretation [...] 0.0-0.4 H IG%) [facility] [place]UN[facility] WITH AUTO [id number] 09:14:00 Test Item Value Reference Range Interpretation [...] % 0.0-0.4 IG%) [facility] [place]-[id number] 09:12:00 Test Item Value Reference Range Interpretation [...] 0.5-1.3 code = CREA) EGFR if >60 Cambodian (test code mL/min/1.73m\\ = EGFRAA) S\\2 EGFR if Non- >60 Estimate d Glomerular Cambodian (test code mL/min/1.73m\\ Filtrat ion Rate (eGFR) [...] hronic kidney failure. [facility] [place]-LufkinSP PERC PLMNT MIDLINE NO PORT > 5 [...] PMDictated By: WILEY VELÁZQUEZDate: 04/07/2019 16:05[facility] TEXASCT ABDOMEN/PELVIS W/[id number] 22:50:40PROCEDURE INFORMATION:Exam: CT Abdomen and pelvis with [...] CDT.Dictated By: ELMER PHAMDate: 04/04/2019 22:50[facility] [id number] 21:22:00 Test Item Value Reference Range Interpretation Comments Lipase (test code = LIPA) 89 U/L 73-393 [facility] CountyHEPATIC FUNCTION PANEL (LIVER)2019-04-04 21:22:00 Test Item Value [...] (test code = 0.3 mg/dl 0.0-1.1 IBIL) [facility] LAB CHEM [id number] 21:07:00 Test Item Value Reference Range Interpretation [...] (test code = CREA) 0.6 mg/dl 0.6-1.3 [facility] LAB URINALYSIS WITHOUT [id number] 21:05:00 Test Item Value Reference Range Interpretation Comments Color (test code = UCOLR) Yellow Lt. Yellow A Clarity (test code = UCLAR) Slightly Cloudy Glucose (test code = UGLUC) 100 Negative A Bilirubin (test code = UBILI) Negative Negative N Ketones (test code = UKET) Negative Negative N Specific Arjay (test code = >=1.030 1.005-1.030 A USPGR) Blood (test code = UBLD) Negative Negative N PH (test code = UPH) 5.5 4.5-8.0 A Protein (test code = UPROT) Negative Negative N Urobilinogen (test code = U 0.2 >0.2 N UROB) Nitrite (test code = UNITR) Negative Negative N Leukocyte Esterase (test code Negative Negative N = ULEUK) [facility] LAB CBC WITH AUTO [id number] 21:04:00 Test Item Value Reference Range Interpretation [...] code = IG%) 0.5 % 0.0-0.4 H [facility] LAB , [id number] 21:04:00 Test Item Value Reference Range Interpretation Comments (Urine) (test code = Negative PREGU) ONLY AVAILABLE -12[facility]-LufkinED2 [id number] 16:05:00 Test Item Value Reference Range Interpretation Comments Sodium (test code = CANCELED mmol/l The r eleased value NA) 141 was cancele d by [id number] on 04/04/2019 16:0 5 Potassium (test code CANCELED mmol/l The released value = K) 3.9 was cancele d by [id number] on 04/04/2019 16:0 5 CO2 (test code = CANCELED mmol/l The rele ased value CO2) 23 was canceled by [id number] on 04/04/2019 16:0 5 Chloride (test code CANCELED mmol/l The r eleased value = CL) 108 was cancele d by [id number] on 04/04/2019 16:0 5 Glucose (test code = CANCELED mg/dl The r eleased value GLU) 96 was canceled by [id number] on 04/04/2019 16:0 5 Calcium (test code = CANCELED mg/dl The r eleased value CALC) 8.8 was cancele d by [id number] on 04/04/2019 16:0 5 BUN (test code = CANCELED mg/dl The relea sed value BUN) 11 was canceled by [id number] on 04/04/2019 16:0 5 Creatinine (test CANCELED mg/dl code = CREA) [facility] [place]ginHISTOLOGY [id number] 11:08:[address] [place] [address]Wsegf: [phone] GRJB #: [id number] MedicalDirector: Seth Valdez M.D.Surgical Pathology Consultation ReportPatient Name: HONG BETH Case #: [id number] Med. Rec. #:[id number] [id number] Date: 03/21/2019 : 1985(Age:33) Received: 03/23/2019 [...] greatest dimension. The cystsarefilled with clearserous fluid. Cut Off Man sections of the ovaryandpossible fallopian tube are submitted in cassettes A1-A8. 03/23/2019 Seth Valdez MD, Board Certified in Anatomic Pathology Microscopic DescriptionMicroscopic examination of the right ovary reveals fibrovascularadhesionsalong the surface of the ovary as well as along the accompanyingfallopiantube. The ovarian parenchyma contains follicular cysts, benign serouscyst,as well as numerous corpus albicans. No areas of endometriosis areseen. BillingFee Code(s): A; 04266CnolkturAurora Medical Center [facility]owoc County- US TRANSVAGINAL W/[id number] 16:45:00 Patient Name: ADELIA BETH Unit No: [id number] EXAMS: CPT CODE: [id number] US TRANSVAGINAL W/PELVIS 51733 CLINICAL HISTORY: Right lower quadrant pain. Status [...] MD CC: Hilaria Calderón MD Technologist: Dipesh Lopez RDMS, RVT Probe: [id number] Trnscrbd D/ (1644) Ro Orig Print D/T: S: 03/10/2019 (183) [facility] NAME: ADELIA BETH Radiology Department PHYS: [facility]. - Hilaria Calderón [address] : 1985 AGE: 33 SEX: F [place] [address] LOC: ALONDRA PHONE #: [phone] EXAM DATE: 03/10/2019 STATUS: REG ER FAX #: [phone] RAD NO: Page 1 Signed Report Patient Name: ADELIA BETH Unit No: [id number] EXAMS: CPT CODE: [id number] US TRANSVAGINAL W/PELVIS 35271 <Continued> [facility] NAME: ADELIA BETH Radiology Department PHYS: SUE.Faustino - Hilaria Calderón [address] : 1985 AGE: 33 SEX: F [place] [address] LOC: DayanaraERS PHONE #: [phone] EXAM DATE: 03/10/2019 STATUS: REG ER FAX #: [phone] RAD NO: Page 2 Signed Report- US TRANSVAGINAL W/[id number] 16:45:00 Patient Name: HONG BETH Unit No: [id number] EXAMS: CPT CODE: [id number] US TRANSVAGINAL W/PELVIS 92904 CLINICAL HISTORY: Right lower quadrant pain. Status [...] MD CC: Hilaria Calderón MD Technologist: Dipesh Lopez RDMS, RVT Probe: [id number] Trnscrbd D/ (4425) oR Orig Print D/T: S: 03/10/2019 (2554) [facility] NAME: IGNACIAHONG Charlton Radiology Department PHYS: SUE - Hilaria Calderón [address] 1985 AGE: 33 SEX: F [place], [place] [address] LOC: ALONDRA PHONE #: [phone] EXAM DATE: 03/10/2019 STATUS: [facility] FAX #: [phone] RAD NO: [id number] Page 1 SignedReport Patient Name: HONG BETH Unit No: [id number] EXAMS: CPT CODE: [id number] US TRANSVAGINAL W/PELVIS 30314 (Continued) [facility] NAME: IGNACIAHONG Charlton Radiology Department PHYS: BEBEAL - Hilaria Calderón [address] : 1985 AGE: 33 SEX: F [place], [place] [address] LOC: ALONDRA PHONE #: [phone] EXAM DATE: 03/10/2019 STATUS: DEP ER FAX #: [phone] RAD NO: [id number] Page 2 Signed Report- US PELVIS [id number] 16:45:00 Patient Name: ADELIA BETH Unit No: [id number] EXAMS: CPT CODE: [id number] US PELVIS COMPLETE 18055 CLINICAL HISTORY: Right lower quadrant pain. Status [...] MD CC: Hilaria Calderón MD Technologist: Dipesh Lopez RDMS, RVT Probe: Trnscrbd D/ (7405) VereniceYOS Orig Print D/T: S: 03/10/2019 (6658) [facility] NAME: ADELIA BETH Radiology Department PHYS: SUEEmmaHilaria Diaz [address] : 1985 AGE: 33 SEX: F [place], [place] [address] LOC: ALONDRA PHONE #: [phone] EXAM DATE: STATUS: REG ER FAX #: [phone] RAD NO: Page 1 Signed Report Patient Name: ADELIA BETH Unit No: [id number] EXAMS: CPT CODE: [id number] US PELVIS COMPLETE 76088 <Continued> [facility] NAME: ADELIA BETH Radiology Department PHYS: NIGEL - Hilaria Calderón [address] : 1985 AGE: 33 SEX: F [place], [place] [address] LOC: ALONDRA PHONE #: [phone] EXAM DATE: 03/10/2019 STATUS: REG ER FAX #: [phone] RAD NO: Page 2 Signed Report- US PELVIS [id number] 16:45:00 Patient Name: HONG BETH Unit No: [id number] EXAMS: CPT CODE: [id number] US PELVIS COMPLETE 98816 CLINICAL HISTORY: Right lower quadrant pain. Status [...] flow is identified in theright ovary. at 9581 Reported and signedby: Mario Guidry MD CC: Hilaria Calderón MD Technologist: Dipesh Lopez RDMS, RVT Probe: Trnscrbd D/ (5610) AtilioS Orig Print D/T: S: 03/10/2019 (2546) [facility] NAME: HONG BETH Radiology Department PHYS: GUTAL. - Calderón,Hilaria [address] : 1985 AGE: 33 SEX: F [place], [place] [address] LOC: ALONDRA PHONE #: [phone] EXAM DATE: 03/10/2019 STATUS: DEP ER FAX #: [phone] RAD NO: [id number] Page 1 Signed Report Patient Name: HONG BETH Unit No: [id number] EXAMS: CPT CODE: [id number] US PELVIS COMPLETE 11383 (Continued) [facility] NAME: HONG BETH Radiology Department PHYS: GUTAL. - CalderónSarabjitHilaria [address] : 1985 AGE: 33 SEX: F [place], [place] [address] LOC: ALONDRA PHONE #: [phone] EXAM DATE: 03/10/2019 [facility] FAX #: [phone] RAD NO: [id number] Page 2 Signed ReportCBC W/AUTO DIFF 2019-03-10 [...] = PLTMR) UA RFLX MICR CULT IF [id number] 16:07:00 Test Item Value Reference Range Interpretation [...] A Indication for culture: Suprapubic PainUR HCG [id number] 16:07:00 Test Item Value Reference Range Interpretation [...] culture: Suprapubic PainUA RFLX MICR CULT IF [id number] 16:04:00 Test Item Value Reference Range Interpretation [...] EPIU) Indication for culture: Suprapubic PainUR HCG [id number] 16:04:00 Test Item Value Reference Range Interpretation [...] culture: Suprapubic PainUA RFLX MICR CULT IF [id number] 15:55:00 Test Item Value Reference Range Interpretation [...] RARE-FEW Indication for culture: Suprapubic PainUR HCG [id number] 15:55:00 Test Item Value Reference Range Interpretation [...] and tested. Indication for culture: Suprapubic PainED2 [id number] 01:18:00 Test Item Value Reference Range Interpretation [...] code = MPV) 6.9 fL 8.0-11.0 A [facility]ED[facility] URINE [id number] 00:55:00 Test Item Value Reference Range Interpretation Comments Color (test code = UCOLR) Yellow Lt. Yellow A Clarity (test code = UCLAR) Clear Glucose (test code = UGLUC) NEGATIVE NEGATIVE N Bilirubin (test code = UBILI) NEGATIVE NEGATIVE N Ketones (test code = UKET) NEGATIVE NEGATIVE N Specific Arjay (test code = USPGR) 1.030 1.005-1.030 A Blood (test code = UBLD) NEGATIVE NEGATIVE N PH (test code = UPH) 6.0 4.5-8.0 A Protein (test code = UPROT) Trace NEGATIVE A Urobilinogen (test code = U UROB) 0.2 >0.2 N Nitrite (test code = UNITR) NEGATIVE NEGATIVE N Leukocyte Esterase (test code = NEGATIVE NEGATIVE N ULEUK) [facility]kinED[facility] , [id number] 00:54:00 Test Item Value Reference Range Interpretation Comments (Urine) (test code = Negative PREGU) [facility] CenterFozmbl-DlgiulEXUOTU0820-90-10 13:07:00 Test Item Value Reference Range Interpretation Comments Lipase (test code = LIPA) 106 U/L 73-393 [facility] [place]ED[facility] ABDOMEN/PELVIS W/[id number] 12:24:12Procedures: ED2 CT ABDOMEN/PELVIS W/CONTRASTExam Date: 02/07/2019 10:11 AMOrdering Physician: WYATT Downsinical Indication: [id number]: Epigastric painComparison: CT abdomen/pelvis, 01/27/19TECHNIQUE: Spiral multislice [...] MD02/07/2019 12:17 PMDictated By: ELMER PHAMDate: 02/07/2019 12:[address]2019-08-10 10:48:00 Test Item Value Reference Range [...] (test code = TP) 7.6 gm/dl 6.4-8.1 [facility]-[place]kinED2 URINE [id number] 10:45:00 Test Item Value Reference Range Interpretation Comments Color (test code = UCOLR) Yellow Lt. Yellow A Clarity (test code = UCLAR) Sl Cloudy Glucose (test code = UGLUC) NEGATIVE NEGATIVE N Bilirubin (test code = UBILI) NEGATIVE NEGATIVE N Ketones (test code = UKET) NEGATIVE NEGATIVE N Specific Arjay (test code = 1.025 1.005-1.030 A USPGR) Blood (test code = UBLD) NEGATIVE NEGATIVE N PH (test code = UPH) 5.5 4.5-8.0 A Protein (test code = UPROT) NEGATIVE NEGATIVE N Urobilinogen (test code = U UROB) 0.2 >0.2 N Nitrite (test code = UNITR) NEGATIVE NEGATIVE N Leukocyte Esterase (test code = NEGATIVE NEGATIVE N ULEUK) [place] [address] , [id number] 10:45:00 Test Item Value Reference Range Interpretation Comments (Urine) (test code = Negative PREGU) [facility]kinED[facility] [id number] 10:44:00 Test Item Value Reference Range Interpretation [...] fL 8.0-11.0 A [facility]-[place]kinCT ABDOMEN/PELVIS W/[id number] 12:29:19s/p hysterectomy; rlq painProcedure: CT ABDOMEN/PELVIS W/CONTRASTOrder Date: 01/27/2019 10:57 AMOrdering Provider: DR LEXUS CASTREJON ACOSTAClinical Indication: [id number]: Abdominal painComparison: September 30, 2018TECHNIQUE:The abdo men [...] PMDictated By: Maggie BENITEZte: 01/27/2019 12:23[facility] CONSTANTINEURINALYSIS WITH [id number] 12:10:00 Test Item Value Reference Range Interpretation Comments Color (test code = UCOLR) YELLOW Clarity (test code = UCLAR) CLEAR Glucose (test code = UGLUC) NEGATIVE NEGATIVE N Bilirubin (test code = UBILI) NEGATIVE NEGATIVE N Ketones (test code = UKET) NEGATIVE NEGATIVE N Specific Arjay (test code = USPGR) <=1.005 1.005-1.030 A [...] None Seen,Trace N [facility]cadiaQkzjwg-[id number] 11:49:00 Test Item Value Reference Range Interpretation Comments Lipase (test code = LIPA) 91 U/L 73-393 [facility] [place] HospitalkinAMYLASE, [id number] 11:49:00 Test Item Value Reference Range Interpretation Comments Amylase (test code = AMYL) 45 U/L 25-115 [facility]fkinSTAT LAB CHEM [id number] 11:25:00 Test Item Value Reference Range Interpretation [...] code = CREA) 0.5 mg/dl 0.6-1.3 L [facility] LAB CBC WITH AUTO [id number] 11:23:00 Test Item Value Reference Range Interpretation [...] code = IG%) 0.6 % 0.0-0.4 H [facility] PELVIS [id number] 07:55:25h/o complex right ovarian cystsProcedure: Pelvic ultrasound.CLINICAL [...] 12/07/20187:49 AMDictated By:WILEY VELÁZQUEZDate: 12/07/2018 07:49MM OF CONSTANTINELTWQIPFLTQT8535-60-14 03:11:00 Test Item Value Reference Range Interpretation Comments Lipase (test code = LIPA) 136 U/L 73-393 [facility] CountyHEPATIC FUNCTION PANEL (LIVER)2018-12-07 03:10:00 Test Item Value [...] (test code = 0.1 mg/dl 0.0-1.1 IBIL) [facility] LAB CHEM [id number] 02:41:00 Test Item Value Reference Range Interpretation [...] mg/dl 0.6-1.3 L [facility] CenterkinSTA LAB CBC WITH AUTO [id number] 02:39:00 Test Item Value Reference Range Interpretation [...] % 0.0-0.4 H [facility] CenterkinURINALYSIS WITH [id number] 02:37:00 Test Item Value Reference Range Interpretation Comments Color (test code = UCOLR) YELLOW Clarity (test code = UCLAR) CLEAR Glucose (test code = UGLUC) 500 NEGATIVE A Bilirubin (test code = UBILI) NEGATIVE NEGATIVE N Ketones (test code = UKET) TRACE NEGATIVE A Specific Arjay (test code = USPGR) >=1.030 1.005-1.030 A [...] None Seen,Trace A [facility] [place]-fkinCULTURE, [id number] 07:39:00CULTURE RIGHT ABDOMEN WOUND CARE DEPTSpecimen: AbdomenCollected: [...] ICR (+/-) Negative -[facility]-LufkinXR CHEST AP/PA 1 [id number] 05:15:17Procedure: XR CHEST AP/PA 1 VIEWOrder Date: 09/30/2018 8:28 PMOrdering Provider: DIMAS Haskinsinical Indication: [id number]: Acute chest painComparison: May 13, 2017Findings:Cardiac size is magnified by technique.Pulmonary vasculature is normal.Mediastinal contour is normal.Aortic contour is normal.There is no consolidation or effusion.There is no evidence of active tuberculosis.There is no mass or pneumothorax.There is no skeletal abnormality.Impression: Negative AP portable chest x-ray.This final report was electronically signed by Dr Farzad [place] MD 10/01/20185:08 AMDictated By: FARZAD DEWITTDate: 10/01/2018 05:08 [facility]CT [facility]/PELVIS W/O [id number] 00:42:26NPO 4 hours. Do not withhold medsEXAM:CT [...] CDT.Dictated By: REHAN AZARDate: 10/01/2018 00:42[facility] OF CONSTANTINEGIKGHKNVANC1030-93-96 21:37:00 Test Item Value Reference Range Interpretation Comments Lipase (test code = LIPA) 82 U/L 73-393 [facility] County[facility] PANEL (LIVER)2018-09-30 21:37:00 Test Item Value [...] (test code = 0.5 mg/dl 0.0-1.1 IBIL) [facility] LAB CHEM [id number] 21:10:00 Test Item Value Reference Range Interpretation [...] code = CREA) 0.5 mg/dl 0.6-1.3 L [facility] LAB CBC WITH AUTO [id number] 21:09:00 Test Item Value Reference Range Interpretation [...] 0.3 % 0.0-0.4 [facility] W/WO TUBE,[id number] 12:44:00 RUN DATE: 09/04/18 [facility] PAGE 1 RUN TIME: 1454 Specimen Inquiry RUN USER: INTERFACE --PATIENT: HONG BETH LOC: [place] U #: [id number] AGE/SX: 33/F ROOM: [facility] RE09/02/18REG DR: Elmer Flores : 86 BED: A DIS: 09/03/18 STATUS: DIS Coty TLOC: SPEC #: [id number] RECD: 09/02/18 STATUS: KWAME REQ #: [id number] MELISSA: 09/02/18- SUBM DR: Elmer Flores III ENTERED: 09/03/18 SP TYPE: HANSARMELANIE PELAYO DR: ORDERED: LEVEL IV CODES: [id number] - OVARY, NOS PROCEDURES: LEVEL IV (Incomplete) TISSUES: OVARY, NOS - RIGHT OVARIAN CYST CLINICAL HISTORY 33 year old, acute pelvic pain (wpd) FINAL DIAGNOSIS Right ovarian cyst, excision: - benign simple cyst of ovary Tissue code 1 CPT code(s): 64550 [facility] 09/04/18 GROSS [...] with multiple yellow-orange, centrally hemorrhagic corpora lutea. Cut Off Man sections are submitted as A and B. telma/wpd 09/03/18 @ 1343 Signed Amaris Wharton MD 09/04/18 1244 END OF REPORT CBC W/AUTO [id number] 03:10:00 Test Item Value Reference Range Interpretation [...] NORMAL NORMAL code = PLTMR) CHEMISTRY 7 [id number] 14:15:00 Test Item Value Reference Range Interpretation [...] CA) 9.2 mg/dL 8.4-10.2 N CBC W/AUTO [id number] 13:42:00 Test Item Value Reference Range Interpretation [...] NORMAL NORMAL code = PLTMR) US INTRAVAGINAL [id number] 12:35:09Procedure: Pelvic ultrasound.CLINICAL INDICATION: Pelvic pain. Status [...] MD 09/01/201812:28 PMDictated By: WILEY VELÁZQUEZDate: 09/01/2018 12:28[facility] CBC WITH AUTO [id number] 11:31:00 Test Item Value Reference Range Interpretation [...] 71 on 09/01/2018 11:31 ONLY AVAILABLE [address] [place] [address]-[place] ABDOMEN/PELVIS W/O [id number] 11:11:01MLP CProcedure: CT ABDOMEN/PELVIS W/O CONTRASTOrder Date: 09/01/2018 9:28 AMOrdering Provider: CHIN Guilleninical Indication: [id number]: Abdominal pain. Left lower quadrant painComparison: 12/24/2017TECHNIQUE:CT [...] 09/01/201811:04 AMDictatedBy: GLORY BENITEZKDate: 09/01/2018 11:04[facility] LAB CHEM [id number] 10:26:00 Test Item Value Reference Range Interpretation [...] CREA) 0.4 mg/dl 0.6-1.3 L ONLY AVAILABLE [address] [place] [address] LAB URINALYSIS WITHOUT [id number] 09:59:00 Test Item Value Reference Range Interpretation Comments Color (test code = UCOLR) Yellow Lt. Yellow A Clarity (test code = UCLAR) Clear Glucose (test code = UGLUC) NEGATIVE Negative A Bilirubin (test code = UBILI) NEGATIVE Negative A Ketones (test code = UKET) NEGATIVE Negative A Specific Arjay (test code = USPGR) 1.015 1.005-1.030 A Blood (test code = UBLD) NEGATIVE Negative A PH (test code = UPH) 7.0 4.5-8.0 A Protein (test code = UPROT) NEGATIVE Negative A Urobilinogen (test code = U UROB) 0.2 >0.2 N Nitrite (test code = UNITR) NEGATIVE Negative A Leukocyte Esterase (test code = NEGATIVE Negative A ULEUK) ONLY AVAILABLE [address] [place] [address]-[place] INTRAVAGINAL PELVIS 2018-05-13 13:26:23Procedure: Pelvic ultrasound.CLINICAL INDICATION: [...] [facility] LAB CBC WITH AUTO [id number] 12:22:00 Test Item Value Reference Range Interpretation [...] (test code = 0.2 % 0.0-0.4 IG%) [facility] LAB CBC WITH AUTO [id number] 11:54:00 Test Item Value Reference Range Interpretation [...] code 24 10\\S\\3/ul 130-400 LL CALLED T Adela KIMBROUGH G/RB/ = PLT) JMF RDW (test code [...] 0.5 % 0.0-0.4 H IG%) ONLY AVAILABLE [address] [place] [address] LAB URINALYSIS WITHOUT [id number] 11:25:00 Test Item Value Reference Range Interpretation Comments Color (test code = UCOLR) Yellow Lt. Yellow A Clarity (test code = UCLAR) Clear Glucose (test code = UGLUC) NEGATIVE Negative A Bilirubin (test code = UBILI) NEGATIVE Negative A Ketones (test code = UKET) NEGATIVE Negative A Specific Arjay (test code = USPGR) 1.020 1.005-1.030 A Blood (test code = UBLD) NEGATIVE Negative A PH (test code = UPH) 7.0 4.5-8.0 A Protein (test code = UPROT) NEGATIVE Negative A Urobilinogen (test code = U UROB) 0.2 >0.2 N Nitrite (test code = UNITR) NEGATIVE Negative A Leukocyte Esterase (test code = NEGATIVE Negative A ULEUK) ONLY AVAILABLE [address] [place] [address] LAB , URINE 2018-05-13 11:25:00 Test Item Value Reference Range Interpretation Comments (Urine) (test code = Negative PREGU) ONLY AVAILABLE [address] [place] [address] LAB CHEM [id number] 11:23:00 Test Item Value Reference Range Interpretation [...] CREA) 0.5 mg/dl 0.6-1.3 L ONLY AVAILABLE 8A-12[facility] INTRAVAGINAL PELVIS 2017-12-24 12:50:53Procedure: Pelvic ultrasound.CLINICAL [...] PMDictated By: WILEY VELÁZQUEZDate: 12/24/2017 12:50[facility] WITH [id number] 10:22:00 Test Item Value Reference Range Interpretation Comments Color (test code = UCOLR) Yellow Clarity (test code = UCLAR) Clear Glucose (test code = UGLUC) NEGATIVE NEGATIVE N Bilirubin (test code = UBILI) NEGATIVE NEGATIVE N Ketones (test code = UKET) NEGATIVE NEGATIVE N Specific Arjay (test code = USPGR) 1.025 1.005-1.030 A [...] None Seen,Trace N [facility]-[place]ufkinLIPASE, [id number] 10:05:00 Test Item Value Reference Range Interpretation Comments Lipase (test code = LIPA) 40 U/L 8-223 [facility]-[id number] 10:05:00 Test Item Value Reference Range Interpretation [...] ( 4 - SerumAlbumin)] EGFR if >60 Cambodian (test code mL/min/1.73m\\ = EGFRAA) S\\2 EGFR if Non- >60 Estimate d Glomerular Cambodian (test code mL/min/1.73m\\ Filtrat ion Rate (eGFR) [...] hronic kidney failure. [facility] ABD/ PELVIS W/O CON (RENAL STONE)2017-12-24 09:38:31Procedure: [...] MD 12/24/20179:32 AMDictated By: WILEY VELÁZQUEZDate: 12/24/2017 09:38[facility] WITH AUTO DIFF 2017-12-24 09:26:00 Test Item [...] 0.6 % 0.0-0.4 H IG%) AUTO [facility]/ PELVIS W/O CON (RENAL STONE) [...] on 3:19 AMCDT.Dictated By: MARVIN DOBBSDate: 06/21/2017 03:20[facility] WITH [id number] 03:20:00 Test Item Value Reference Range Interpretation Comments Color (test code = UCOLR) YELLOW Clarity (test code = UCLAR) CLEAR Glucose (test code = UGLUC) NEGATIVE NEGATIVE N Bilirubin (test code = UBILI) NEGATIVE NEGATIVE N Ketones (test code = UKET) NEGATIVE NEGATIVE N Specific Arjay (test code = 1.020 1.005-1.030 A USPGR) [...] UBACT) None Seen None Seen,Trace N er [address] [place] [address]-[id number] 03:07:00 Test Item Value Reference Range Interpretation [...] ( 4 - SerumAlbumin)] EGFR if >60 Cambodian (test code mL/min/1.73m\\ = EGFRAA) S\\2 EGFR if Non- >60 Estimate d Glomerular Cambodian (test code mL/min/1.73m\\ Filtrat ion Rate (eGFR) [...] and management of c hronic kidney failure. [address] HospitalkinLIPASE, [id number] 03:07:00 Test Item Value Reference Range Interpretation Comments Lipase (test code = LIPA) 61 U/L 8-[address]-[place] WITH AUTO [id number] 03:05:00 Test Item Value Reference Range Interpretation [...] code = 0.4 % 0.0-0.4 IG%) er [address] [place] [address]-[place]XR CHEST 2 PA [id number] 19:56:04 Procedure: XR CHEST 2 PA LATERALExam date: 05/13/2017 3:53 PMOrdering Provider: DR ASA BLOOMClinical Indication: fatigue, Chest painComparison: March 15, 2016Findings:Cardiomediastinal silhouette is within normal limits.The lungs are clear.No pleural effusion or pneumothorax. Osseous structures are nonacute.No evidence of active tuberculosis.Impression:No acute cardiopulmonary process.This final report was electronically signed by Dr Wiley Velázquez MD 05/13/20177:49 PMDictated By: WILEY VELÁZQUEZDate: 05/13/2017 19:55[id number] 16:53:00 Test Item Value Reference Range Interpretation [...] ( 4 - SerumAlbumin)] EGFR if >60 Cambodian (test code mL/min/1.73m\\ = EGFRAA) S\\2 EGFR if Non- >60 Estimate d Glomerular Cambodian (test code mL/min/1.73m\\ Filtrat ion Rate (eGFR) [...] hronic kidney failure. [facility])2017-05-13 16:32:00 Test Item Value [...] THE RE PORT. [facility]kinURINALYSIS WITH [id number] 18:25:00 Test Item Value Reference Range Interpretation Comments Color (test code = UCOLR) YELLOW Clarity (test code = UCLAR) CLEAR Glucose (test code = UGLUC) NEGATIVE NEGATIVE N Bilirubin (test code = UBILI) NEGATIVE NEGATIVE N Ketones (test code = UKET) NEGATIVE NEGATIVE N Specific Arjay (test code = 1.025 1.005-1.030 A USPGR) [...] MISC) None Seen None Seen N [facility] CountyHEPAT[facility] FUNCTION PANEL (LIVER)2016-10-09 18:21:00 Test Item Value [...] mg/dl 0.0-1.1 IBIL) [facility]-[id number] 18:21:00 Test Item Value Reference Range Interpretation [...] mg/dl 8.4-10.2 = CALC) EGFR if >60 Cambodian (test code mL/min/1.73m\\ = EGFRAA) S\\2 EGFR if Non- >60 Estimate d Glomerular Cambodian (test code mL/min/1.73m\\ Filtrat ion Rate (eGFR) [...] hronic kidney failure. [facility]-fkinCBC WITH AUTO [id number] 18:04:00 Test Item Value Reference Range Interpretation [...] Auto (test code = 0 NRBC_AUTO) AUTO [facility]FF[facility]-[place] Notes Date/Time Note Provider Source 2022-04-23 [id number] [facility] HCATO 16:09:00-00:00 [address], [place] [address] PATIENT NAME: HONG BETH ADMIT DATE: 04/23 ACCOUNT NO: [id number] ROOM NO: AGE: 36 REPORT TYPE: HISTORY AND PHYSICAL SEX: F ADMITTING PHYSICIAN: ATTENDING PHYSICIAN:Truman Quintero MD ADMISSION DATE: 04/23/2022 09:39:00 EMERGENCY ROOM CONSULTATION CHIEF COMPLAINT: Left shoulder pain. HISTORY OF PRESENT ILLNESS: She was playing voll eyball yesterday with her daughter and used her left dominant arm to perfo rm an overhead serve, and she felt a pop in the shoulder. She has pain at rest , and her pain is worse with any movement of the shoulder. PAST MEDICAL HISTORY: Includes hypothyroidism. PAST SURGICAL HISTORY: She has had thyro idectomy and hysterectomy as well as a right rotator cuff repair in high school. SOCIAL HISTORY: She is a nonsmoker. MEDICATIONS: Current medications were reviewed a nd are documented in the EMR. PHYSICAL EXAMINATION: HEENT: She is normocephalic and atraumatic. CARDIOVASCULAR: Heart has regular rate and rhyth m. LUNGS: Clear. No signs of respiratory distress. ABDOMEN: Soft. EXTREMITIES: No mass or deformity. She would sen sate to light touch in bilateral upper extremity de rmatomes. She had 4/5 external rotation on the left secondary to pain and positive impingeme nt sign. Passively, I could abduct her to 90 degrees. X-RAYS: 3 views of the left shoulder were obtain ed and reviewed that were normal. There was no evidence of fracture. There was a type 2 acromion. CLINICAL IMPRESSION: Left rotator cuff strain. PLAN: She is going to use ibuprofen and Tylenol as well as ice for pain. She was given information to follow up with me in in. Dictated By: Truman Quintero MD Date Dictated: 04/23/2022 16:09:58 Date Transcribed: 04/23/2022 20:40:54 PATIENT NAME: HONG BETH [id number] /[facility] Receipt ID: [id number] Authenticated by Truman Quintero MD On 04/26/2022 1 1:00:20 AM Electronically Signed by Truman Quintero MD on 04/01 01/19 at 1100 PATIENT NAME: HONG BETH [id number] [facility] 10:09:00-00:00 [facility] ([facility] EMERGENCY PROVIDER REPORT REPORT#:[id number] REPORT STATUS: Signed DATE:08/07/21 TIME:100 PATIENT: HONG BETH UNIT #: [id number] ROOM/BED: : 86 AGE: 36 SEX: F PCP PHYS: No Primar y or Family Physician SERVICE AUTHOR: Marco Hilton PHYSICAL THERAPIST * ALL edits or amendments must be made on the [employer]/computer document * Marco Hitlon 08/07/21 1009: HPI-Abd Pain F Under 40 General Initial Greet Date/Time 08/07/21 0938 Presentation Chief Complaint Abdominal pain Context /Sexual Hx Menstrual Cycle Post-hysterectomy (complete) Free Text HPI Notes Free Text HPI Notes 36-year-old female presents to the ED with a com plaint of left lower quadrant abdominal pain that woke her up this morning at 630. Patient guarding left lower quadrant. Patient reports due to female he alth issues she has had a complete hysterectomy. Denies fever, trauma, jason [address] pain, shortness of breath, dizziness, nausea, vomiting, diarrhea, pelvic pa in, vaginal bleeding, vaginal discharge, flank pain, or urinary symptoms. Risk-Abd Pain F Under 40 )( Ectopic No risk factors (HAD COMPLE TE HYSTERECTOMY) Review of Systems ROS Statements All systems rev neg except as marked. Free Text ROS Notes Free Text ROS Notes Abdominal pain Past Medical History - Adult Stated Complaint LEFT ABDOMINAL PAIN Allergies Coded Allergies: ketorolac (From TORADOL) (rash 08/07/21) Home Medications Reported Medications CITALOPRAM (CeleXA) 40 MG PO DAILY LEVOTHYROXINE (LEVOTHROID) 175 MCG PO DAILY CITALOPRAM (CeleXA) 20 MG PO DAILY LEVOTHYROXINE (SYNTHROID) 125 MCG PO DAILY ZOLPIDEM (AMBIEN) 10 MG PO HS Calculated Suicide Risk (nurs) No risk Past Medical History: Reports: Depression/mood disorder, Thyroid disor vero. Additional Surgical History laparoscopic surgery cholecystectomy hysterectomy appenectomy Smoking status: Smoking status for patients 13 years old or old er: Current every day smoker Date last smoked: 08/07/21 Packs per day: 1 Physical Exam Vital Signs Vital Signs First Documented: Result Date Time Pulse Ox 98 08/07 954 B/P 133/86 08/07 954 B/P Mean 101 08/07 954 O2 Delivery Room air 08/07 954 Temp 36.7 08/07 954 Pulse 103 08/07 954 Resp 18 08/07 954 Last Documented: Result Date Time Pulse Ox 98 08/07 954 B/P 133/86 08/07 954 B/P Mean 101 08/07 954 O2 Delivery Room air 08/07 954 Temp 36.7 08/07 954 Pulse 103 08/07 954 Resp 18 08/07 954 Review of Vital Signs Reviewed Free Text PE Notes Free Text PE Notes PHYSICAL EXAM General/Const : Awake, Alert, Well appearing MS Head : Eyes : Ears/Nose/Throat : MS Neck : Resp/Chest: Breath sounds NL, Breath sounds = bi lat, No respiratory distress, No rales, No rhonchi, No wheezing Cardiovascular : Heart rate NL, Regular rhythm, Heart sounds NL, Cap refill not delayed, Peripheral circulation NL Abdomen/GI : Soft, tender left lower jacobo drant, voluntary guarding, No rebound. BS x4 q. MS Back : Lymphatic : MS Upper Extrem : MS Wrist/Hand : MS Lower Extrem : MS Ankle/Foot : Skin : Color NL, Warm, Dry, Turgor NL Genitourinary : Rectum : Neurologic : Oriented X3, Speech NL, No motor de ficits, No sensory deficits Psychiatric: Affect NL, Mood NL, Thought content NL Interpretation Diagnostics Lab Results Interpretation Results Laboratory Tests 08/07/21 1150: [Embedded Image Not Available] Laboratory Tests: 08/07 1149 Chemistry Sodium (134 - 147 mmol/L) 138 Potassium (3.4 - 5.0 mmol/L) 4.1 Chloride (100 - 108 mmol/L) 106 Carbon Dioxide (21 - 32 mmol/L) 25 Anion Gap (4.0 - 15.0 GAP calc) 7.0 BUN (7 - 18 MG/DL) 11 Creatinine (0.6 - 1.0 MG/DL) 0.6 Glomerular Filtr Rate (>60 estGFR) >=60 max est imate Glucose (70 - 110 MG/DL) 90 Calcium (8.5 - 10.1 MG/DL) 9.0 Total Bilirubin (0.2 - 1.2 MG/DL) 0.20 Direct Bilirubin (0.00 - 0.30 MG/DL) < 0.10 Indirect Bilirubin (0.2 - 1.2 MG/DL) 0.10 L AST (15 - 37 Unit/L) 19 ALT (12 - 78 Unit/L) 26 Total Alk Phosphatase (45 - 117 Unit/L) 96 Total Protein (6.4 - 8.2 G/DL) 7.6 Albumin (3.4 - 5.0 G/DL) 3.5 Lipase (114 - 286 Unit/L) 83 L Hematology WBC (3.5 - 11.0 K/mm3) 8.7 RBC (4.70 - 6.10 M/mm3) 4.43 L Hgb (10.4 - 14.9 G/DL) 12.8 Hct (31.5 - 44.1 %) 37.8 MCV (84.5 - 98.6 Fl) 85.3 MCH (27.0 - 34.2 pg) 28.9 MCHC (31.5 - 34.0 G/DL) 33.9 RDW (11.5 - 14.5 SD) 13.8 Plt Count (150 - 450 K/mm3) 322 MPV (7.0 - 10.5 fL) 8.90 Neut % (Auto) (40 - 76 %) 68.6 Lymph % (Auto) (20.5 - 51.1 %) 24.7 Avery % (Auto) (1.7 - 9.3 %) 5.0 Eos % (Auto) (0.0 - 6.0 %) 1.1 Baso % (Auto) (0.0 - 2.0 %) 0.3 Neut # (Auto) (1.8 - 7.6 K/mm3) 6.0 Lymph # (Auto) (0.6 - 3.2 K/mm3) 2.2 Avery # (Auto) (0.3 - 1.1 K/mm3) 0.4 Eos # (Auto) (0.0 - 0.4 K/mm3) 0.1 Baso # (Auto) (0.0 - 0.1 K/mm3) 0.0 Abs Immat Gran (auto) (0.00 - 0.03 x10 3/uL) 0. 03 Add Manual Diff (CRITERIA DIFF/SCN) NO Immature Gran % (0.0 - 5.0 %) 0.3 Nucleated RBC % (0.0 - 1.0 /100WBC%) 0.0 Urines Urine Color (YEL/STRAW discript) YELLOW Urine Appearance (CLEAR discript) CLEAR Urine pH (5.0 - 7.0 pH UNITS) 6.5 Ur Specific Arjay (1.005 - 1.030 SG) 1.020 Urine Protein (NEG mg/dL) NEGATIVE Urine Glucose (UA) (NEG mg/dL) NEGATIVE Urine Ketones (NEG mg/dL) NEGATIVE Urine Blood (NEG mg/DL) NEGATIVE Urine Nitrite (NEG SCREEN) NEGATIVE Urine Bilirubin (NEG mg/dL) NEGATIVE Urine Urobilinogen (<2.0 mg/dL) 0.2 Ur Leukocyte Esterase (NEGATIVE Leuk/mcL) NEGAT KIERAN Recent Impressions: CAT SCAN - CT ABD PELVIS W/CONT 08/07 1200 Report Impression - Status: SIGNED Entered: 08/07/2021 1231 IMPRESSION: No acute abnormality in the abdomen or pelvis. N o bowel obstruction. LOCATION: B2 This CT exam was performed according to our depa rtmental dose optimization program, which includes automated e xposure control, adjustment of the mA and or kV according to katelin ent size and/or use of iterative reconstruction technique. Impression By: Sravan - Alma Cartwright M.D. Lab Imaging Statement Laboratory radiographic studies reviewed and con sidered in the medical decision-making. Point of Care Testing Pulse Oximetry Pulse Ox % 98 On: Room air Interpretation Interpreted by me Re-Evaluation MDM Free Text MDM Notes Free Text MDM Notes Patient informed RN that she was leaving AGAINST MEDICAL ADVICE. RN to get patient to sign AMA form. I did not have an oppo rtunity to speak with patient prior to her leaving AMA. I have reviewed all th e patient's lab work and CT report which is all normal. ED Course Medication(s) Ordered Medication(s) Ordered: Central Nervous System Agents Sig/Tami Start time Last Medication Dose Route Stop Time Status Admin Morphine Sulfate 4 MG X1ED STA 08/07 1005 DC IV 08/07 1006 1123 Diagnostic Agents Sig/Tami Start time Last Medication Dose Route Stop Time Status Admin Iopamidol 0 .STK-MED ONE 08/07 1031 DC 08/07 .ROUTE 1221 Electrolytic, Caloric, And Frederick Sig/Tami Start time Last Medication Dose Route Stop Time Status Admin Sodium Chloride 50 ML .STK-MED ONE 08/07 1222 D C 08/07 IV 08/07 1223 1222 Sodium Chloride 1,000 ML X1ED STA 08/07 1005 DC / IV 08/07 1105 1123 Gastrointestinal Drugs Sig/Tami Start time Last Medication Dose Route Stop Time Status Admin Ondansetron HCl 4 MG X1ED PRN PRN 08/07 1015 DC 08/07 IV 08/08 1014 1123 Patient Discharge Departure Vital Signs/Condition Vital Signs First Documented: Result Date Time Pulse Ox 98 / 0955 B/P 133/86 02/ 0955 B/P Mean 101 / 0955 O2 Delivery Room air 02/ 0955 Temp 36.7 02/ 0955 Pulse 103 02/07 0955 Resp 18 / 0955 Last Documented: Result Date Time Pulse Ox 98 02/07 0955 B/P 133/86 02/ 0955 B/P Mean 101 02/07 0955 O2 Delivery Room air / 0955 Temp 36.7 02/ 0955 Pulse 103 / 0955 Resp 18 / 0955 All vital signs available at the time of this en try have been reviewed. Condition Stable Clinical Impression Clinical Impression Primary Impression: Abdominal pain Disposition Decision Other )( Time 1255 )( Date 08/07/21 Against Medical Advice Yes Olga Clements 08/08/21 0851: Patient Discharge Departure Supervising Physician Note MidLv Saw Pt Alone I have reviewed the PA/PHYSICAL THERAPIST's note and plan of car e. I was available for consultation as needed at al l times during the patient's visit in the emergency department. I agree with the clinical impression , plan and disposition. Electronically Signed by Marco Hilton NP on 01/19 at 1336 at 0851 RPT #: [id number] END OF REPORT 2020-12-13 [facility] 05:54:00-00:00 [facility] ([facility]) EMERGENCY PROVIDER REPORT REPORT#:[id number] REPORT STATUS: Signed DATE:12/13/20 TIME: 0554 PATIENT: HONG BETH UNIT #: [id number] ROOM/BED: AGE: 35 SEX: F PCP PHYS: No Primary or Family Ph ysician SERVICE AUTHOR: Tangela Perez MD * ALL edits or amendments must be made on the [employer]/computer document * HPI-General Illness Free Text HPI Notes Free Text HPI Notes 35-year-old female presents to the ER wi th diffuse abdominal pain but worse in the right lower quadrant. Patient reports nausea /vomiting x5-6 episodes. Patient denies any diarrhea, chest pain, shortness of breath or fever. Patient took Tylenol 2 hours prior t o arrival. Patient reports her pain is currently 10 /10. Pt has had this pain in the past multiple times. PCP: Nba PMH: Endometriosis PSH: Hysterectomy, appendectomy 2006, gallbladde r removal Social: Current smoker, light drinker, no recrea tional drugs Allergic: Toradol General Initial Greet Date/Time 12/13/20 0154 Provider in Triage PE General/Const No acute distress Presentation Chief Complaint Abdominal pain Sudden in Onset? No Onset Occurred Chronic Symptom Duration Constant Caused by No trauma by history Location Abdomen Review of Systems ROS Statements All systems rev neg except as marked. Review of Systems GI Reports: Abdominal pain. Past Medical History - Adult Stated Complaint RIGHT SIDE ABDOMINAL PAINX 2 HR S N/V Allergies Coded Allergies: ketorolac (From TORADOL) (rash 03/24/15) Home Medications Reported Medications CITALOPRAM (CeleXA) 40 MG PO DAILY LEVOTHYROXINE (LEVOTHROID) 175 MCG PO DAILY CITALOPRAM (CeleXA) 20 MG PO DAILY LEVOTHYROXINE (SYNTHROID) 125 MCG PO DAILY ZOLPIDEM (AMBIEN) 10 MG PO HS Past Medical History: Reports: Depression/mood disorder, Thyroid disor veor. Additional Surgical History laparoscopic surgery cholecystectomy hysterectomy appenectomy Smoking status: Smoking status for patients 13 years old or old er: Current every day smoker Physical Exam Vital Signs Vital Signs First Documented: Result Date Time Pulse Ox 98 12/13 0156 B/P 136/96 12/136 B/P Mean 109.3 12/14 155 Temp 98.1 12/14 155 Pulse 92 12/14 155 Last Documented: Result Date Time Pulse Ox 98 12/14 155 B/P 136/96 12/14 155 B/P Mean 109.3 12/14 155 Temp 98.1 12/14 155 Pulse 92 12/14 155 Review of Vital Signs Reviewed Free Text PE Notes Free Text PE Notes GEN: Awake, Alert, No acute distress, non toxic appearing, cooperative HEAD: Normocephalic, Atraumatic EYES: PERRL, EOMI, conjunctiva clear ENT: no facial swelling, tra vitaly midline, airway patent. mucous membranes moist NECK: Supple, No swelling, Nontender RESP/CHEST: Breath Sounds eq ual B/L, No respiratory distress, No wheezing, rales or rhonchi, no chest wall tenderness CVS: Heart rate NL, Regular rhythm, Cap refill n ot delayed, Pulses = BL ABD/GI: Soft, Non-Tender, No distention, No guar ding, No rebound EXTREMITIES: RUE: No edema, non-tender, inspection normal, pu lse palpable LUE: No edema, non-tender, inspection normal, pu lse palpable RLE: No edema, non-tender, inspection normal, pu lse palpable LLE: No edema, non-tender, inspection normal, pu lse palpable SKIN: Color NL, warm, dry, intact NEURO: Orientedx3, Speech normal, CN II-XII neeru sly intact, gait normal, MAEW PSYCH: Affect normal, mood normal, normal insigh t/judgement, thought content normal Interpretation Diagnostics Lab Results Interpretation Results Laboratory Tests 12/13/20 0259: [Embedded Image Not Available] Laboratory Tests: 12/13 12/13 12/13 0321 0259 0213 Chemistry Sodium (137 - 145 mmol/L) 136 L Potassium (3.4 - 5.0 mmol/L) 3.8 Chloride (98 - 107 mmol/L) 103 Carbon Dioxide (22 - 30 mmol/L) 24 BUN (7 - 17 mg/dL) 14 Creatinine (0.5 - 1.0 mg/dL) 0.6 POC Creatinine (0.51 - 1.19 mg/dL) 0.60 Glomerular Filtr Rate (>60) 122 Glucose (74 - 106 mg/dL) 106 Calcium (8.4 - 10.2 mg/dL) 9.5 Total Bilirubin (0.2 - 1.3 mg/dL) 0.3 Conjugated Bilirubin (0 - 0.3 mg/dL) 0 Unconjugated Bilirubin (0 - 1.1 mg/dL) 0.1 AST (15 - 46 U/L) 24 ALT (0 - 34 U/L) 17 Total Alk Phosphatase (38 - 126 U/L) 99 Total Protein (6.3 - 8.2 g/dL) 7.0 Albumin (3.5 - 5.0 g/dL) 4.1 Lipase (23 - 300 U/L) 82 Hematology WBC (5.0 - 12.0 x10 3/uL) 8.2 RBC (4.20 - 5.40 x10 6/uL) 4.39 Hgb (12.0 - 16.0 g/dL) 12.4 Hct (36.0 - 46.0 %) 36.9 MCV (81 - 99 fL) 84 MCH (27 - 31 pg) 28.2 MCHC (33 - 37 g/dL) 33.6 RDW (11.5 - 15.5 %) 13.2 Plt Count (130 - 400 x10 3/uL) 280 MPV (9.4 - 16.4 fL) 8.6 L Neut % (Auto) (43 - 65 %) 56.3 Lymph % (Auto) (20.5 - 45.5 %) 36.2 Avery % (Auto) (5.5 - 11.7 %) 5.6 Eos % (Auto) (0.9 - 2.9 %) 1.0 Baso % (Auto) (0.2 - 1.0 %) 0.4 Neut # (Auto) (2.2 - 4.8 x10 3/uL) 4.64 Lymph # (Auto) (1.3 - 2.9 x10 3/uL) 2.98 H Avery # (Auto) (0.3 - 0.8 x10 3/uL) 0.46 Eos # (Auto) (0.0 - 0.2 x10 3/uL) 0.08 Baso # (Auto) (0.0 - 0.1 x10 3/uL) 0.03 Immature Gran % (0.0 - 2.0 %) 0.5 Nucleated RBC % (0 - 1.0 %) 0.0 Urines Urine Color (Yellow) Yellow Urine Appearance (Clear) Slightly-Cloudy Urine pH (5.0 - 8.0) 6.0 Ur Specific Arjay (<1.030) 1.014 Urine Protein (Negative mg/dL) NEGATIVE Urine Glucose (UA) (Negative) Negative Urine Ketones (Negative mg/dL) Negative Urine Blood (Negative) Negative Urine Nitrite (Negative) Negative Urine Bilirubin (Negative) Negative Urine Urobilinogen (Negative mg/dL) Negative Ur Leukocyte Esterase (Negative) NEGATIVE Urine RBC (<4 - 5 /HPF) 0-3 Urine WBC (<4 - 5 /HPF) 0-3 Ur Squamous Epith Cells (0 - 5 (RARE) /HPF) 0-5 (RARE) Urine Bacteria (None - Rare /HPF) 4+ H Hyaline Casts (<4 - 5 /LPF) 0-3 Urine Mucus (<Rare /LPF) Rare H Recent Impressions: CAT SCAN - CT ABD PELVIS W/CONT 12/13 0323 Report Impression - Status: SIGNED Entered: 12/13/2020 0349 IMPRESSION: No acute findings in the abdomen or pelvis. Postsurgical changes in the stomach, cholecystec martine, appendectomy and hysterectomy. Impression By: [email or web address] - Neo Huber MD Lab Imaging Statement Laboratory radiographic studies reviewed and con sidered in the medical decision-making. Re-Evaluation MDM Free Text MDM Notes Free Text MDM Notes Patient had a dose of morphine. She is asking fo r morphine. I do not see any mechanical problem on her sc ans or any abnormalities on her lab work. I offered her lidocaine patches and several other nonnarco tic choices for pain medications. She refused all of them except for lidocaine patch. She says she has Tylenol 3 and [place] at home ED Course Medication(s) Ordered Medication(s) Ordered: Central Nervous System Agents Sig/Atmi Start time Last Medication Dose Route Stop Time Status Admin Morphine Sulfate 4 MG X1ED STA 12/13 0200 DC IV 12/13 0201 0252 Diagnostic Agents Sig/Tami Start time Last Medication Dose Route Stop Time Status Admin Iopamidol 100 ML .STK-MED ONE 12/13 0324 DC IV 12/13 0325 0324 Electrolytic, Caloric, And Frederick Sig/Tami Start time Last Medication Dose Route Stop Time Status Admin Sodium Chloride 1,000 ML X1ED STA 12/13 0200 DC 12/13 IV 06/15 0201 0252 Gastrointestinal Drugs Sig/Tami Start time Last Medication Dose Route Stop Time Status Admin Ondansetron HCl 4 MG X1ED STA 12/13 020 DC IV 12/13 200 025 Skin And Mucous Membrane Agent Sig/Tami Start time Last Medication Dose Route Stop Time Status Admin Lidocaine 1 PATCH ONCE ONE 12/13 514 DC TOPICAL 12/14 515 Patient Discharge Departure Vital Signs/Condition Vital Signs First Documented: Result Date Time Pulse Ox 98 12/13 0156 B/P 136/96 12/13 0156 B/P Mean 109.3 12/13 0156 Temp 98.1 12/13 0156 Pulse 92 12/13 0156 Last Documented: Result Date Time Pulse Ox 98 12/13 0156 B/P 136/96 12/13 0156 B/P Mean 109.3 12/13 0156 Temp 98.1 12/13 0156 Pulse 92 12/13 0156 All vital signs available at the time of this en try have been reviewed. Clinical Impression Clinical Impression Primary Impression: Abdominal pain Disposition Decision Other )( Time 0530 )( Date 12/13/20 Text/Dict Note PT eloped and did not wait for discharge instruc tions Discharge/Care Plan Counseled Regarding Diagnosi s, Lab results, Imaging studies, Prescriptions, Need for follow-up, When to return to ED at 0606 RPT #:[id number] END OF REPORT 2020-12-13 [facility] 02:02:00-00:00 [facility] ([facility]) EMERGENCY PROVIDER REPORT REPORT#:[id number] REPORT STATUS: Signed DATE:12/13/20 TIME: 0202 PATIENT: HONG BETH UNIT #: [id number] ROOM/BED: AGE: 35 SEX: F PCP PHYS: No Primary or Family Ph ysician SERVICE AUTHOR: Annemarie Tesfaye PHYSICAL THERAPIST * ALL edits or amendments must be made on the el [employer]/computer document * Provider in Triage - Adult Provider in Triage Initial Greet Date/Time 12/13/20 0154 Greet Note I have greeted and performed a focused rapid initial assessment of this patient. A comprehensive ED assessment and evaluation of the patient, analysis of all test results, and completion of the medical deci sriram-making process will be conducted by additional ED providers. PE General/Const No acute distress MSE Not Complete The medical screening exam i s not complete. Further evaluation and/or treatment is required. The patient will be re-directed to the emergency department. Free Text PIT Notes Free Text PIT Notes 35-year-old female presents to the ER wi th diffuse abdominal pain but worse in the right lower quadrant for the last 2 hours. Patient reports nausea/vomiting x5-6 episodes. Patient denies any diarrh ea, chest pain, shortness of breath or fever. Patient took Tylenol 2 hours prio r to arrival. Patient reports her pain is currently 10/10. PCP: Nba PMH: Endometriosis PSH: Hysterectomy, appendectomy 2006, gallbladde r removal Social: Current smoker, light drinker, no recrea tional drugs Allergic: Toradol PMH-Provider in Triage Stated Complaint RIGHT SIDE ABDOMINAL PAIN X 2 H RS N/V Allergies Coded Allergies: ketorolac (From TORADOL) (rash 03/24/15) Home Medications Reported Medications CITALOPRAM (CeleXA) 40 MG PO DAILY LEVOTHYROXINE (LEVOTHROID) 175 MCG PO DAILY CITALOPRAM (CeleXA) 20 MG PO DAILY LEVOTHYROXINE (SYNTHROID) 125 MCG PO DAILY ZOLPIDEM (AMBIEN) 10 MG PO HS Past Medical History: Reports: Depression/mood disorder, Thyroid disor vero. Smoking status: Smoking status for patients 13 years old or old er: Current every day smoker at 0222 at 1711 RPT #:[id number] END OF REPORT 2020-12-13 [facility] 02:02:00-00:00 [facility] ([facility]) EMERGENCY PROVIDER REPORT REPORT#:[id number] REPORT STATUS: Signed DATE:12/13/20 TIME: 0202 PATIENT: HONG BETH UNIT #: [id number] ROOM/BED: AGE: 35 SEX: F PCP PHYS: No Primary or Family Ph ysician SERVICE AUTHOR: Annemarie Tesfaye PHYSICAL THERAPIST * ALL edits or amendments must be made on the [employer]/computer document * Provider in Triage - Adult Provider in Triage Initial Greet Date/Time 12/13/20 0154 Greet Note I have greeted and performed a focused rapid initial assessment of this patient. A comprehensive ED assessment and evaluation of the patient, analysis of all test results, and completion of the medical deci sriram-making process will be conducted by additional ED providers. PE General/Const No acute distress MSE Not Complete The medical screening exam i s not complete. Further evaluation and/or treatment is required. The patient will be re-directed to the emergency department. Free Text PIT Notes Free Text PIT Notes 35-year-old female presents to the ER wi th diffuse abdominal pain but worse in the right lower quadrant for the last 2 hours. Patient reports nausea/vomiting x5-6 episodes. Patient denies any diarrh ea, chest pain, shortness of breath or fever. Patient took Tylenol 2 hours prio r to arrival. Patient reports her pain is currently 10/10. PCP: Nba PMH: Endometriosis PSH: Hysterectomy, appendectomy 2006, gallbladde r removal Social: Current smoker, light drinker, no recrea tional drugs Allergic: Toradol PMH-Provider in Triage Stated Complaint RIGHT SIDE ABDOMINAL PAIN X 2 H RS N/V Allergies Coded Allergies: ketorolac (From TORADOL) (rash 03/24/15) Home Medications Reported Medications CITALOPRAM (CeleXA) 40 MG PO DAILY LEVOTHYROXINE (LEVOTHROID) 175 MCG PO DAILY CITALOPRAM (CeleXA) 20 MG PO DAILY LEVOTHYROXINE (SYNTHROID) 125 MCG PO DAILY ZOLPIDEM (AMBIEN) 10 MG PO HS Past Medical History: Reports: Depression/mood disorder, Thyroid disor vero. Smoking status: Smoking status for patients 13 years old or old er: Current every day smoker at 0222 RPT #:[id number] END OF REPORT 2020-05-[address] [facility] - 14:13:00-00:00 Discharge Instructions 2 Memoria l (LUF/ABI/SA) Discharge Diagnosis abdominal pain Important Information Consult your physician or re turn to the Emergency Department immediately if worse, if not better as expected, or if any problems arise. Follow Up Care Yes Important Information Please understand that you have received care on ly on an emergency basis. If your condition does not improve, you should call your personal physician for follow-up care. If you do not have a physician, you may call th e referred physician listed. If you have questions about your care or these discharge instructions, you may call the Emergency Department. Please take your discharge paperwork with you t o any follow-up appointments. Follow Up Care Patient To Schedule Follow-Up With: Primary Care Physician Follow-Up Notes: f/u with pcp in 2-3 days; tylenol/motrin pain; f luids/rest Patient Teaching Patient education provided 2020-03-17 [facility] - 11:30:00-00:00 [facility] (LUF/LI V/SA) Assistance Required None Emotional State Calm Pleasant Housing Type House Patient/Family Concerns None Discharge Instructions IV Removed Date 03/17/2020 Discharge Diagnosis Cellulitis Physician Name for Follow Up Appt #1 Dr Wolfe in 2 weeks Referral Required None Activity Level no tub baths As tolerated, unrestricted Other Medications Prescriptions Given Take all medications as listed on your Discharge Medication List as directed DO NOT STOP taking your medicine(s) until directed by your doctor. Diet Regular Discharge Instructions Patient education provided Follow Up Care Patient To Schedule Readmission Risk (LACE Score) 12 Written Discharge Plan given to the Katelin ent at the time of discharge contains: Reason for hospitalization Discharge medications includ ing what medications to take, how to take them, and how to obtain the medication. Patient / family / caregiver given instructions on what to do if their condition changes. Coordination and planning fo r follow-up appointments that the patient can keep. Pneumonia Vaccine Does Not Meet Criteria Influenza Vaccine NOT Given, State Reason(s) Bel ow: Previously immunized during this flu season Discharge Instructions 2 Wound / Incision Care Incision Leave wound / incision open to the air Keep wound / incision clean and dry Smoking Cessation Teaching Patient is nonsmoker or former smoker of greater than one year Discharge Education Copy of Discharge Medication List Discussed New / Changed Medications Discharge Medication Education Take all medications as listed on your Discharge Medication List as directed Remember: Get permission fro m your doctor before taking any additional medications like vitamins, herbal medications, sexual dysfunction pills, alcoholic beverages or any medications you get at your pharmacy without a prescription Carry a complete, up-to-date list of your home medications with you at all times Your medication list should be updated when medications are discontinued, doses are changed or new medications are added. A copy of your completed discharge Medication List is attached. Notify Surgeon if You Experience: Increased warmth around surgical area Redness or increased pain around surgical area Red streaks coming from surgical area Personal Belongings Returned To Patient/Family Yes Valuables Returned To Patient/Family N/A Pre-Admission Medications Returned To Patient/Fa mary N/A Patient/Significant Other Education Acknowledgem ent I hereby acknowledge colton smith the explanation of the attached instructions. I was able to "teach back" my health information and education to my nurse and I understand what I was taught as indicated by my signature below. Person Receiving Discharge Instructions Hong Beth Discharge Instructions Explained To Patient Discharge Summary Accompanied By Relatives Discharge Status Vital Signs Stable Afebrile Adequate Diet/Liquid Intake Adequate Urinary Output Adequate Bowel Functioning Activity Tolerated within Physical Limits Mode Of Discharge Wheelchair Patient Transferred/Discharged To Home Home Health Care Monitoring Required No Pain At Discharge Denies Pain PATIENT TIPS I Can Help Prevent a Readmission By Following Up With My Care Be sure to communicate with my primary care prov ider I Can Help Prevent a Readmission By Protecting M yself From Infections Avoid people who are sick Wash my hands often Record Skin Lesions No Data abdominal incision c/d/i. and open to air. Abdomen, Lower Left Anterior Incision 2020-03-[address] [facility] - 15:35:00-00:00 [facility] (LU/LI V/SA) Assistance Required None Emotional State Calm Pleasant Patient/Family Concerns None Discharge Instructions Discharge Diagnosis s/p tiki lapaorscopic lysis of adhesion Activity Level As tolerated, unrestricted No Driving Discharge Instructions Patient education provided One Day Surgery Instructions Temperature Control Follow Up Care Yes Scheduled Appointment Written Discharge Plan given to the Katelin ent at the time of discharge contains: Patient / family / caregiver given instructions on what to do if their condition changes. Coordination and planning fo r follow-up appointments that the patient can keep. Discharge Instructions 2 Wound / Incision Care Call doctor if temperature i s above 101 or if change in wound /incision / drainage is noted Personal Belongings Returned To Patient/Family N/A Valuables Returned To Patient/Family N/A Discharge Instructions Explained To Patient Mother Discharge Summary Accompanied By Parents Discharge Status Vital Signs Stable Afebrile Adequate Diet/Liquid Intake Activity Tolerated within Physical Limits Mode Of Discharge Wheelchair Patient Transferred/Discharged To Home 2020-02-27 [facility] - 12:09:00-00:00 Discharge Instructions [facility] (LUF/ABI/SA) Discharge Diagnosis abdominal Pain Physician Name for Follow Up Appt #1 Please follow up with [facility] in 1 week [phone] Physician Name for Follow Up Appt #[address] Please follow up with Dr. Wolfe in 2 weeks [phone] Discharge Weight 99.6kg Activity Level As tolerated, unrestricted Medications Take all medications as listed on your Discharge Medication List as directed DO NOT STOP taking your medicine(s) until directed by your doctor. Diet Regular Discharge Instructions Patient education provided Discharge Instructions 2 Wound / Incision Care Keep wound / incision clean and dry Call doctor if temperature i s above 101 or if change in wound /incision / drainage is noted Core Measure / Get with the Guidelines (AMI/HF) Review Discharge Medications with patient for ne xt dose times Discharge Medication Education Take all medications as listed on your Discharge Medication List as directed Remember: Get permission fro m your doctor before taking any additional medications like vitamins, herbal medications, sexual dysfunction pills, alcoholic beverages or any medications you get at your pharmacy without a prescription Carry a complete, up-to-date list of your home medications with you at all times Your medication list should be updated when medications are discontinued, doses are changed or new medications are added. A copy of your completed discharge Medication List is attached. Notify Surgeon if You Experience: Increased warmth around surgical area Redness or increased pain around surgical area Red streaks coming from surgical area Personal Belongings Returned To Patient/Family N/A Valuables Returned To Patient/Family N/A Pre-Admission Medications Returned To Patient/Fa mary N/A Person Receiving Discharge Instructions Hong Beth Discharge Instructions Explained To Patient Discharge Summary Accompanied By Relatives Self Discharge Status Vital Signs Stable Afebrile Adequate Diet/Liquid Intake Adequate Urinary Output Adequate Bowel Functioning Activity Tolerated within Physical Limits Mode Of Discharge Wheelchair Patient Transferred/Discharged To Home Pain At Discharge Denies Pain PATIENT TIPS A Readmission Is When I am admitted to the [facility] after being discharged for the same diagnosis (condition). I Can Help Prevent a Readmission by Understandin g My Discharge Instructions Know what I need to do before and after I leave the hospital Ask questions early and often Ask when I don't understand my follow-up care in structions Arrange for the support and follow-up care I noemi l need post discharge I Can Help Prevent a Readmission by Knowing My D iagnosis (Condition) Understand my main medical problem or condition Know the potential complications and who to call if I need assistance Learn how my condition impacts me and my family I Can Help Prevent a Readmission By Following Up With My Care Be sure to communicate with my primary care prov ider Ask my healthcare team to he lp me find a primary care provider if I don't have one Schedule and go to all my follow-up appointments Keep a medical journal and bring it to all my ap pointments Tell my primary care gab leija and other providers that I was admitted to the hospital Ask my provider if they have received all of my test results and medical reports Ask questions at the follow- up visit about what I need to do and why I need to do it Understand and follow my post-discharge activity and dietary plans I Can Help Prevent a Readmission By Protecting M yself From Infections Avoid people who are sick Wash my hands often Learn how my condition impacts me and my family I Can Help Prevent a Readmission by Managing My Medications Understand my post-discharge medications and if they are different than before admission Keep a current list of my me dications, including [id number] and herbal medications (note any allergies) Bring my current medication list to appointments and review the list with my doctors Update my medication list when my medications ch bruce Take my medications as directed Understand what medications to take and when, and why it is important to take my medications Know the reason for taking my medication and how they help with my condition Let my healthcare providers know if I am having problems taking my medications 2020-02-25 [facility] - 05:00:00-00:00 Discharge Instructions 2 Memoria l (LUF/ABI/SA) Discharge Diagnosis Abdominal pain Important Information Consult your physician or re turn to the Emergency Department immediately if worse, if not better as expected, or if any problems arise. Please understand that you have received care on ly on an emergency basis. If your condition does not improve, you should call your personal physician for follow-up care. If you do not have a physician, you may call th e referred physician listed. If you have questions about your care or these discharge instructions, you may call the Emergency Department. Please take your discharge paperwork with you t o any follow-up appointments. Follow Up Care No Follow-Up With: Primary Care Physician Activity Level As tolerated, unrestricted Diet Regular Prescriptions Given Via: Printed and given to patient/caregiver. Patient Teaching Patient education provided Antimicrobial Stewardship Patient Education Disease Process Pain Control 2019-10-07 [facility] - 23:10:00-00:00 Discharge Instructions 2 Memoria l (LUF/ABI/SA) Discharge Diagnosis chronic abdominal pain Important Information Consult your physician or re turn to the Emergency Department immediately if worse, if not better as expected, or if any problems arise. Follow Up Care Yes Important Information Please understand that you have received care on ly on an emergency basis. If your condition does not improve, you should call your personal physician for follow-up care. If you do not have a physician, you may call th e referred physician listed. If you have questions about your care or these discharge instructions, you may call the Emergency Department. Please take your discharge paperwork with you t o any follow-up appointments. Follow Up Care Patient To Schedule Follow-Up With: Primary Care Physician Follow up Provider 1 OBGYN Activity Level As tolerated, unrestricted Diet Regular Patient Teaching Patient education provided Disease Process Pain Control 2019-08-17 [facility] - 04:45:00-00:00 Discharge Instructions 2 Memoria l (LUF/ABI/SA) Discharge Diagnosis Abd pain Important Information Consult your physician or re turn to the Emergency Department immediately if worse, if not better as expected, or if any problems arise. Follow Up Care Yes Important Information Please understand that you have received care on ly on an emergency basis. If your condition does not improve, you should call your personal physician for follow-up care. If you do not have a physician, you may call th e referred physician listed. If you have questions about your care or these discharge instructions, you may call the Emergency Department. Please take your discharge paperwork with you t o any follow-up appointments. Follow Up Care Patient To Schedule Follow-Up With: Primary Care Physician Activity Level As tolerated, unrestricted Diet Instructions Provided Prescriptions Given Via: Printed and given to patient/caregiver. Patient Teaching Patient education provided 2019-03-10 [facility] 15:41:00-00:00 [facility] ([facility]) EMERGENCY PROVIDER REPORT REPORT#:[id number] REPORT STATUS: Signed DATE:03/10/19 TIME: 1541 PATIENT: ADELIA BETH UNIT #: [id number] ROOM/BED: AGE: 33 SEX: F PCP PHYS: Elmer Flores III SERVICE AUTHOR: Hilaria Calderón MD * ALL edits or amendments must be made on the [employer]/computer document * HPI-Abd Pain F Under 40 General Initial Greet Date/Time 03/10/19 1540 Presentation Chief Complaint Pelvic pain Hx Obtained From Patient Sudden in Onset? Yes Free Text HPI Notes Free Text HPI Notes 33 YR OLD H/O HYSTERECTOMY AND LEFT OOPHORECTOMY REFERS LEFT LOWER PELVIC PAIN FOR THE PAST 2 DAY S, INCREASING TODAY H/O OVAIRAN CYSTS NORMAL BM THIS MORNING NO FEVER Risk-Abd Pain F Under 40 )( Ectopic Risk factors reviewed Review of Systems ROS Statements Complete sys rev neg except as marked. Basic Review of Systems Basic ROS EYES: No redness, ENT: No sore throat, HEM: No bleeding/bruising, SKIN : No rash, NEURO: No change MS, NEURO: No focal deficit, PSYCH: NL thought content Past Medical History - Adult Stated Complaint RLQ PAIN, DX WITH OVARIANCYSTS Allergies Coded Allergies: ketorolac (From TORADOL) (Mild, RASH 03/10/19) Home Medications Reported Medications CITALOPRAM (CeleXA) 20 MG PO DAILY LEVOTHYROXINE (SYNTHROID) 125 MCG PO DAILY Past Medical History: Reports: Depression/mood disorder, Thyroid disor vero. Physical Exam Vital Signs Vital Signs First Documented: Result Date Time Pulse Ox 100 09/ 1540 B/P 135/89 09/10 1540 B/P Mean 104 / 1540 Temp 36.8 09/10 1540 Pulse 78 09/10 1540 Resp 18 03/10 1540 Last Documented: Result Date Time Pulse Ox 100 09/10 1540 B/P 135/89 09/10 1540 B/P Mean 104 09/10 1540 Temp 36.8 09/10 1540 Pulse 78 09/10 1540 Resp 18 / 1540 Review of Vital Signs Reviewed, Vital signs norm al Basic Physical Exam Basic PE HEAD: Atraumatic/NC, EYES: PERRL, conj clear, ENT: Membranes moist, NECK: Supple, EXT: No gross abnormality, SKIN: No rashes, warm/dry, NEURO: alert oriented, NEURO: gross movement NL, PSYCH: NL t hought content Focused PE Resp/Chest Respiratory/Chest Breath sounds NL, Breath soun ds = bilat, No respiratory distress Cardiovascular Cardiovascular Heart rate NL, Regular rhythm, H eart sounds NL Abdomen/GI Abdomen/GI Atraumatic, Soft, Non-tender, McBurn ey's non-tender, No guarding, No rebound, BS normoactive, No distention, No he rnia, No palpable mass, No pulsatile mass MS Back Back Inspection NL, No CVA tenderness Interpretation Diagnostics Lab Results Interpretation Results Laboratory Tests 03/10/19 1555: [Embedded Image Not Available] Laboratory Tests: 03/10 03/10 1555 1544 Hematology WBC (6.6 - 12.1 K/mm3) 8.6 RBC (3.45 - 5.01 M/mm3) 4.69 Hgb (10.7 - 13.9 g/dL) 13.7 Hct (32.1 - 42.1 %) 40.4 MCV (84.1 - 94.8 fL) 86 MCH (27 - 35 pg) 29.2 MCHC (32.2 - 34.1 gm/dL) 33.9 RDW (12.4 - 16.5 %) 12.8 Plt Count (133 - 385 K/mm3) 327 MPV (9.1 - 12.7 fl) 8.7 L Neut % (Auto) (56.5 - 79.4 %) 54.3 L Lymph % (Auto) (14.3 - 34.3 %) 37.4 H Avery % (Auto) (5.1 - 10.4 %) 6.7 Eos % (Auto) (0.1 - 3.0 %) 0.5 Baso % (Auto) (0.1 - 1.0 %) 0.5 Neut # (Auto) (K/mm3) 4.7 Lymph # (Auto) (K/mm3) 3.2 Avery # (Auto) (K/mm3) 0.6 Eos # (Auto) (K/mm3) 0.04 Baso # (Auto) (K/mm3) 0.0 Immature Plt Fraction (0.0 - 10.8 %) 0.0 Urines Urine Color (YELLOW) YELLOW Urine Appearance (CLEAR) HAZY Urine pH (5 - 9) 6.0 Ur Specific Arjay (1.001 - 1.035) 1.025 Urine Protein (NEGATIVE) NEGATIVE Urine Glucose (UA) (NEGATIVE) NEGATIVE Urine Ketones (NEGATIVE) TRACE Urine Blood (NEGATIVE) NEG Urine Nitrite (NEGATIVE) NEGATIVE Urine Bilirubin (NEGATIVE) NEGATIVE Urine Urobilinogen (<=1.0 EU/dL) 0.2 Ur Leukocyte Esterase (NEGATIVE) NEG Urine RBC (NONE SEEN #/hpf) 3-5 H Urine WBC (NONE SEEN #/hpf) 3-5 H Ur Epithelial Cells (RARE - FEW #/HPF) MANY H Urine Bacteria (NONE SEEN #/hpf) MANY H Urine Yeast (NONE SEEN #/hpf) FEW H Urine HCG, Qual NEGATIVE Microbiology: Date/Time Procedure - Status Source Growth 03/10 1544 GC DNA Probe - RECD URINE 03/10 1544 Chlamydia DNA Probe (GERONIMO) - RECD URINE Recent Impressions: ULTRASOUND - US TRANSVAGINAL W/PELVIS 03/10 1615 Report Impression - Status: SIGNED Entered: 03/10/20191647 IMPRESSION: 1. Status post hysterectomy and left oophorectom y. 2. Enlargement of the right ovary with hemorrhag ic cyst as well as simple cyst as described above. Blood flow is id entified in the right ovary. Impression By: Ro Guidry MD ULTRASOUND - US PELVIS COMPLETE 03/10 1615 Report Impression - Status: SIGNED Entered: 03/10/20191647 IMPRESSION: 1. Status post hysterectomy and left oophorectom y. 2. Enlargement of the right ovary with hemorrhag ic cyst as well as simple cyst as described above. Blood flow is id entified in the right ovary. Impression By: Ro Guidry MD Lab Imaging Statement Laboratory radiographic studies reviewed and con sidered in the medical decision-making. Point of Care Testing Pulse Oximetry Pulse Ox % 100 On: Room air Interpretation Interpreted by me, Pulse oximetr y normal Lab Studies CBC Interpretation CBC NL Re-Evaluation MDM )( Re-Evaluation/Progress #1 )( Re-Eval Status Improved Abd Pain MDM Note F < 40 The patient is resting comfortably and feels bet ter, is alert and in no distress. The repeat examination is unremarkable and benign; in particular, there is no discomfort at McBurney's point. The history, exam, diagnostic testing, and current condition do not suggest ac [place] appendicitis, bowel obstruction, tubovarian abscess, ectopic pregnan cy, ovarian torsion, acute cholecystitis, bowel perforation, major gastroin testinal bleeding, severe diverticulitis, sepsis, or other significant pat hology to warrant further testing, continued ED treatment, admission, or s urgical evaluation at this point. The vital signs have been stable. The pat ient does not have uncontrollable pain, intractable vomiting, or ot her significant symptoms. The patient's condition is stable and appropriate fo r discharge. The patient will pursue further outpatient evaluation with the [facility] hospital physician or other designated or consulting physician as in dicated in the discharge instructions. ED Course Medication(s) Ordered Medication(s) Ordered: Central Nervous System Agents Sig/Tami Start time Last Medication Dose Route Stop Time Status Admin Morphine Sulfate 4 MG X1ED STA 03/10 1655 DC / IV 03/10 1656 1702 Morphine Sulfate 4 MG X1ED STA 03/10 1541 DC / IV 03/10 1542 1550 Gastrointestinal Drugs Sig/Tami Start time Last Medication Dose Route Stop Time Status Admin Ondansetron HCl 4 MG X1ED STA 03/10 1541 DC 09/ 10 IV 09/10 1542 1550 Patient Discharge Departure Vital Signs/Condition Vital Signs First Documented: Result Date Time Pulse Ox 100 09/10 1540 B/P 135/89 09/10 1540 B/P Mean 104 09/10 1540 Temp 36.8 09/10 1540 Pulse 78 09/10 1540 Resp 18 09/10 1540 Last Documented: Result Date Time Pulse Ox 100 09/10 1540 B/P 135/89 09/10 1540 B/P Mean 104 09/10 1540 Temp 36.8 09/10 1540 Pulse 78 09/10 1540 Resp 18 09/10 1540 All vital signs available at the time of this en try have been reviewed. Condition Improved, Stable Clinical Impression Clinical Impression Primary Impression: Ovarian cyst Disposition Decision Discharge )( Discharged to Home Yes )( Time 1706 )( Date 03/10/19 Discharge/Care Plan Counseled Regarding Diagnosi s, Lab results, Imaging studies, Prescriptions, Need for follow-up, When to return to ED Prescriptions zofran odt tylenol #3 (10) Prescriptions Reviewed Risks, Benefits, Alternat kieran treatment Discharge Note I have spoken with the patie nt and/or caregivers. I have explained the patient's condition, diagnoses and ling atment plan based on the information available to me at this time. I have answered the patient's and/ or caregiver's questions and addressed any concerns. The patient and/or careg spring have as good an understanding of the patient 's diagnosis, condition and treatment plan as can be expected at this point. The vital signs have bee n stable. The patient's condition is stable and appr opriate for discharge from the emergency department. The patient will pursue further outpatient evalu ation with the primary care physician or other designated or consulting phys ician as outlined in the discharge instructions. The patient and/or caregivers are agreeable to this plan of care and follow-up instructions have been exp lained in detail. The patient and/or caregivers have received these instructio ns in written format and have expressed an understanding of the discharge inst ructions. The patient and/or caregivers are aware that any significant change in condition or worsening of symptoms should prompt an immediate [facility] or the closest emergency department or a call to 1. Quality Measures Preg Test for Women w/Abd Pain Hysterectomy at 1717 RPT #:[id number] END OF REPORT 2018-12-07 NANCY Marinelli - 04:45:00-00:00 Discharge Instructions 2 Memoria l (LUF/ABI/SA) Discharge Diagnosis ovarian cyst Important Information Consult your physician or re turn to the Emergency Department immediately if worse, if not better as expected, or if any problems arise. Follow Up Care Yes Important Information Please understand that you have received care on ly on an emergency basis. If your condition does not i mprove, you should call your personal physician for follow-up care. If you do not have a physician, you may call the referred physician listed. If you have questions about your care or these discharge instructions, you may call the Emergency Department. Please take your discharge paperwork with you to any follow-up appointments. Follow Up Care Patient To Schedule Follow-Up With: Primary Care Physician Medication While you were in the [facility], you were given medication that may cause sedation. You may feel sleepy or light headed. Do not drive for 4-6 hours after discharge. DO NOT drink alcohol, drive or operate machinery if taking medicines which cause drowsiness or make you feel light-headed. 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 REPORT#:[id number] REPORT STATUS: Signed DATE:09/03/18 TIME: 645 PATIENT: HONG BETH UNIT #: [id number] ROOM/BED: [facility]-A : 86 AGE: 33 SEX: F ATTEND: Santosh Flores III ADM AUTHOR: Elmer Flores III * ALL edits or amendments must be made on the [employer]/computer document * Subjective Comments: feels great compared to yesterday no n/v walking halls eating ready to go home Objective Current Medications Medications: Active Meds + DC'd Last 24 Hrs Hydrocodone Bitart/Acetaminophen 1 TAB Q3H PRN P RN PO Ibuprofen 600 MG Q6H PRN PRN PO Meperidine HCl 50 MG Q4H PRN PRN IV Al Hydrox/Mg Hydrox/Simethicone 30 ML ASDIR PRN PO Docusate Sodium 100 MG BID PRN PRN PO Lactated Ringer's 1,000 ML ASDIR IV (DC) Lactated Ringer's 1,000 ML ASDIR IV Ondansetron HCl 4 MG Q6H PRN PRN IV Promethazine HCl 25 MG Q6H PRN PRN IV Simethicone 160 MG Q6H PRN PRN PO Sodium Chloride 10 ML ASDIR IV Meperidine HCl 0 .STK-MED ONE .ROUTE (DC) Fentanyl Citrate 0 .STK-MED ONE .ROUTE (DC) Meperidine HCl 0 .STK-MED ONE .ROUTE (DC) Ephedrine Sulfate 0 .STK-MED ONE .ROUTE (DC) Glycopyrrolate 0 .STK-MED ONE .ROUTE (DC) Neostigmine Lerona 0 .STK-MED ONE .ROUTE (DC) Cefazolin Sodium 0 .STK-MED ONE .ROUTE (DC) Hydrocodone Bitart/Acetaminophen 2 TAB PACU ONCE PO (DC) Hydromorphone HCl 0.4 MG PACU Q5MIN PRN PRN IV ( DC) Meperidine HCl 12.5 MG PACU ASDIR PRN PRN IV (DC ) Ondansetron Base 4 MG PACU ONCE PRN SL (DC) Ondansetron HCl 4 MG PACU ONCE PRN IV (DC) Ondansetron HCl 4 MG PACU ONCE IV (DC) Promethazine HCl 12.5 MG PACU ONCE PRN IV (DC) Sodium Chloride 10 ML PACU ONCE PRN IV (DC) Cefazolin Sodium 0 .STK-MED ONE .ROUTE (DC) Dexamethasone Sodium Phosphate 0 .STK-MED ONE .R OUTE (DC) Midazolam HCl 0 .STK-MED ONE .ROUTE (DC) Bupivacaine HCl 0 .STK-MED ONE .ROUTE (DC) Lidocaine HCl 0 .STK-MED ONE .ROUTE (DC) Midazolam HCl 0 .STK-MED ONE .ROUTE (DC) Ondansetron HCl 0 .STK-MED ONE .ROUTE (DC) Propofol 0 .STK-MED ONE .ROUTE (DC) Rocuronium Lerona 5 ML .STK-MED ONE INJ (DC) Fentanyl Citrate 0 .STK-MED ONE .ROUTE (DC) Acetaminophen 1,000 MG ONCE ONE PO (DC) Gabapentin 400 MG ONCE ONE PO (DC) Cefazolin Sodium 1 GM PREOP IV (DC) Sterile Water 10 ML Physical Exam VS/I O: Vital Signs Date Time Temp Pulse Resp B/P B/P Pulse O2 O2 F low FiO2 Mean Ox Delivery Rate / 0252 98.1 84 16 116/71 85.5 95 03/05 2252 98.4 109 16 120/77 91.3 95 Room air 03/05 1950 98.4 105 16 123/73 89.5 94 03/05 1930 98.4 104 16 123/73 94 Room air 03/05 1920 101 20 140/78 96 Room air 03/05 1915 97 22 137/77 95 Room air 03/05 1845 99 16 134/73 94 Room air 03/05 1830 96 20 130/70 95 Room air 03/05 1815 99 20 128/76 97 Simple [id number] mask 03/ 1802 Simple 10.335327 mask 03/05 1800 94 18 136/74 100 Simple 10.494659 mask 03/05 1747 99.3 84 16 124/59 100 Simple 10.0000 00 mask 09/02 1333 98.2 70 16 139/79 97 Room air Laboratory Tests 09/02 1257 Chemistry Sodium (135 - 145 mEq/L) 141 Potassium (3.5 - 5.0 mEq/L) 4.1 Chloride (100 - 115 mEq/L) 105 Carbon Dioxide (22 - 31 mEq/L) 25 Anion Gap (10 - 20) 15.00 BUN (7 - 18 mg/dL) 13 Creatinine (0.5 - 1.0 mg/dL) 0.7 Glomerular Filtr Rate (>60 ml/min) 97 Glucose (65 - 110 mg/dL) 87 Calcium (8.4 - 10.2 mg/dL) 9.2 Laboratory Tests 09/03 09/02 0300 1257 Hematology WBC (6.6 - 12.1 K/mm3) 11.7 8.6 RBC (3.45 - 5.01 M/mm3) 4.35 4.65 Hgb (10.7 - 13.9 g/dL) 12.2 13.1 Hct (32.1 - 42.1 %) 38.1 40.0 MCV (84.1 - 94.8 fL) 88 86 MCH (27 - 35 pg) 28.0 28.2 MCHC (32.2 - 34.1 gm/dL) 32.0 L 32.8 RDW (12.4 - 16.5 %) 12.7 12.7 Plt Count (133 - 385 K/mm3) 312 345 MPV (9.1 - 12.7 fl) 8.6 L 8.7 L Neut % (Auto) (56.5 - 79.4 %) 88.0 H 66.2 Lymph % (Auto) (14.3 - 34.3 %) 8.7 L 27.8 Avery % (Auto) (5.1 - 10.4 %) 2.9 L 4.7 L Eos % (Auto) (0.1 - 3.0 %) 0.0 L 0.7 Baso % (Auto) (0.1 - 1.0 %) 0.1 0.3 Neut # (Auto) (K/mm3) 10.3 5.7 Lymph # (Auto) (K/mm3) 1.0 2.4 Avery # (Auto) (K/mm3) 0.3 0.4 Eos # (Auto) (K/mm3) 0 0.06 Baso # (Auto) (K/mm3) 0.0 0.0 Immature Plt Fraction (0.0 - 10.8 %) 0.0 0.0 Last Documented: Result Date Time Pulse Ox 95 09/04 251 B/P 116/71 09/04 251 B/P Mean 85.5 09/04 251 Temp 98.1 09/04 251 Pulse 84 09/04 251 Resp 16 09/04 251 O2 Delivery Room air 09/03 2251 O2 Flow Rate 5.434079 09/02 1815 24 hour I O ending at 0700: 09/03 0700 09/02 1900 Intake Total 3200.00 1500.00 Output Total 2200 225 Balance 1000.00 1275.00 Intake, IV 2700.00 1500.00 Intake, Oral 500 Output, 25 Estimated Blood Loss Output, Urine 2200 200 Patient 97 kg Weight Weight Standing scale Measurement Method General Appearance: alert, awake, no acute distr ess, conversant Cardiovascular: normal heart sounds, regular rat e and rhythm, no murmur Respiratory: clear to auscultation, aerating wel l, symmetric expansion Abdomen: soft approp tender incisions clean dry and intact Extremities: full range of motion, moves all, no calf tnederness, no edema Diagnosis, Assessment Plan Free Text A P: POD #1 after laparoscopic right cystectomy doing very well will d/c home will call in [place] prn pain and motrin prn pain demerol before she and her drive back to [place] at [address] [facility] #:[id number] END OF REPORT 2018-09-02 [id number] [facility] 18:18:00-00:00 [address] [place], [place] [address] PATIENT NAME: HONG BETH ADMIT DATE: 09/02 ACCOUNT NO: [id number] ROOM NO: F.2606 AGE: 33 SEX: F ADMITTING PHYSICIAN: Elmer Flores III ATTENDING PHYSICIAN: Elmer Flores III OPERATION DATE: PREOPERATIVE DIAGNOSES: 1. Ovarian cyst. 2. Acute pelvic pain. POSTOPERATIVE DIAGNOSES: 1. Ovarian cyst. 2. Acute pelvic pain. PROCEDURES: 1. Exam under anesthesia. 2. Open operative laparoscopy. 3. Right ovarian cystectomy. SURGEON: Elmer Flores III, MD BACON SKINNER: Tatum Rush MD. ANESTHESIA: General with endotracheal intubation . ESTIMATED BLOOD LOSS: 25 mL. FLUIDS: Approximately 1500 mL crystalloid. URINE OUTPUT: 200 mL. COMPLICATIONS: None. DRAINS: None. SPECIMENS: Right ovarian cyst wall to pathology. FINDINGS: 1. Normal vulva and vagina. 2. Absent uterus, cervix, left ovary, and left f allopian tube. 3. A very enlarged apparent hemorrhagic benign-a ppearing cyst on the right ovary with some adhesions overlying the cyst wal l. There appeared to be some normal right ovarian tissue more toward the lateral aspect of the mass. The IP ligament was visible and the re also the fimbria were visible, but were buried in adhesions. The ovary was adherent to the right p elvic side wall. There was no bowel adherent to the mass or to the ova ry or to the fallopian tube. There was no evidence of injury to any retroperitoneal or intraperitoneal structures. The PATIENT NAME: HONG BETH [id number] mass was dissected out with sharp and blunt diss ection. During the blunt dissection, close to the bas e of the cyst, the cyst ruptured and there was clear fluid, so this was thought t o represent a benign etiology. There were no other excrescences on the surface of the ovary and there did not appear to be nodular areas within the cyst sac within the cyst wall. OPERATIVE TECHNIQUE IN DETAIL: The patient was t aken to the operating room. After good general anesthesia was achieved, she was examined under anesthesia and prepped and draped in usual sterile fashion in dorsal lithotomy position. Time-out was conducted. Next, the Lozoya catheter was placed, the attenti on was then turned to the abdomen where a small amount of Marcaine was instilled in base of the umbilicus and a vertical skin incision was made with a kni fe and then the fascia was grasped with Magalysner clamps and then usi ng the heavy Sánchez scissors, the fascia was incised. This was a very thickened fascia wi th a lot of scarring. The posterior fascia was also then grasped and sharp ly entered with the Sánchez scissors. At this point, it appeared that only t he peritoneum was standing in the way of being able to ent er the abdominal wall, so the Sara blunt obturator was then used to directly enter the peritoneal c avity. The sleeve was removed and the camera inserted and there was intraperit holloway access that had been gained. Gas was then connected and pneumoperiton eum was obtained and the patient was placed in [place] position. The bowel was easily swept out of the pelvis and there were so me omental adhesions to the left anterior abdominal wall and these were left und isturbed. Free areas of the anterior abdominal wall on the right and left were carefully transillumi nated. There were noted to be no vessels. Area was then infiltrated wi th Marcaine. Small skin incisions were made and then 5-mm trocars and sheath were place d in the right and left lower quadrant respectively and there was no evidence of injury to underlying structures. The procedure was begun by identifyi ng the right ovary and fallopian tube, which were adherent to t he right pelvic sidewall, they did not appear to be undergoing torsion. The right IP li gament vessels were visible. Next, the cyst was free on the proximal pole of the ovary, was lifted up and cul-de-sac appeared otherwise normal. Using cold scissors, the overlying capsule from the cyst was then opened and then t his continued in a vertical fashion opening the cyst enough to mobilize the cyst out of the surrounding cortex. Next, the cortex was placed on traction and using both sharp and blunt dissection, using countertraction and trac tion, the cyst was eventually teased out of the crater. During the last portio n of the procedure as we came close to removing the cyst, the cyst usi ng blunt dissection ruptured and there was straw colored fluid noted. . There was noted to be no bloody fluid and as the cyst collapsed, there appeared to be no nodular or other abnormal areas within the cyst wall. After the cyst collapsed, it was easily removed using traction and countertraction on the normal ovari an surrounding tissue. The fallopian tube fimbria could be seen at this poi nt adherent underneath the ovary and the ovary was adherent to the right pe lvic sidewall, but otherwise the ovarian tissue looked normal, so this was le ft in place. Next, the crater was irrigated out and the pressure was t urned down to approximately 5 mmHg and the ovarian crater and the surrounding overlying cortex that had been opened and from the area from where the cyst had been r emoved was noted to be hemostatic. Small piece of Surgicel was then lucio lizet down through the 5-mm port and was tucked inside the ovarian crater an d the overlying cortex was placed back over this Surgicel and the area was noted to be dry with low pressure in the abdomen. Pelvis previously had b een irrigated and all the irrigant was removed and then the cyst wall was removed by placing a 5-mm PATIENT NAME: HONG BETH [id number] EndoCatch bag down through t he umbilical port and then placing the cyst wall in the bag and withdrawing it through the u mbilical 10-mm Sara cannula. At this point, the procedure was completed, all dissecti on points were carefully visualized and noted to be hemostatic. T here was no bleeding from the anterior abdominal wall. The gas was allowed to escape an d the sleeves were removed under direct vision and then the Sara cannula was removed with the laparoscope from the umbilicus. Next, using S retractors, th e fascia was visualized and grasped with 2 Ochsner clamps and was closed wit h a running 0 Vicryl suture. The fascia was palpably and visually intact. There was a small amount of oozing in the subcutaneous space. This was then irrigat ed out and then the subcutaneous space and the u mbilicus was closed with a [id number] stitch of 2-0 chromic obliterating all the sp jazzy and the bleeding was noted to have ceased. The skin incisions were then all closed with running subcuticular stitches of 3-0 Monocryl and then Dermabond was placed on the wounds. At this point, the procedure was finally complet e, the Lozoya catheter was removed and at this point, t he initial sponge, lap, needle count, and instrument counts were correct. The final counts we re correct. The patient was wanded and there was no evidence of any retained sponges and no sponges had been placed in the vagina at any time during the procedure. The patient was then awakened, extubated, and transferred back to recovery in e xcellent condition. A debriefing with the nursing staff took place. Dictated By: Elmer Flores III, MD WT: OP:GILBERTO// Conf#: [id number]/DID#: [id number] Authenticated and Edited by Elmer Flores MD On 10/26/18 12:59:30 PM at 1302 PATIENT NAME: HONG BETH [id number] [employer] [facility] 15:38:00-00:00 [facility] ([facility]) Full Op Note REPORT#:[id number] REPORT STATUS: Signed DATE:09/02/18 TIME: 1538 PATIENT: HONG BETH UNIT #: [id number] ROOM/BED: [address] : [address] AGE: 33 SEX: F ATTEND: Santosh Flores III ADM AUTHOR: Elmer Flores III * ALL edits or amendments must be made on the [employer]/computer document * Operative Report Start date: 09/02/18 Start time: 1540 Pre-procedure diagnosis: right ovarian cyst acute pelvic pain Post-procedure diagnosis: same Procedures performed: EUA open operative laparoscopy right ovarian cystectomy Technique/Procedure: dictated # Primary Surgeon: MD Macho Mold Stamper And Repairer(s): MD Shaylee Anesthesia: general anesthesia Operative findings: normal v/v/ absent uterus, left ovary and tube right ovary w large 6-7cm ri ght hemorrhagic cyst removed ruptured during removal , entire cyst wall removed, otherwise normal rig ht ovary and tube and ovary adherent to right PSW left undisturbed normal upper abd absent appendix omental adhesio ns to ant abd wall on left, left undisturbed Complications: none Estimated blood loss in ml's: 25cc Specimens removed/altered: right ovarian cyst Drain(s)/tube(s): Lozoya Implant(s): none Fluids: 1500cc Urine output: 200cc Approach: laparoscopic Counts: Sponge count: correct Instrument count: correct Needle count: correct Dictation number: dictated # at [id number] [facility] #:[id number] END OF REPORT 2018-09-02 [id number] [facility] 12:30:00-00:00 [address] [place], [place] [address] PATIENT NAME: HONG BETH ADMIT DATE: 09/02 ACCOUNT NO: [id number] ROOM NO: F.2606 AGE: 33 SEX: F ADMITTING PHYSICIAN: lEmer Flores III ATTENDING PHYSICIAN: Elmer Flores III ADMISSION DATE: 09/02/2018 She will be admitted emergently to the [facility] operating room today. ADMISSION DIAGNOSES: 1. Acute pelvic pain with acute abdomen. 2. Large symptomatic pelvic mass, suspected ovar barrington cyst. PLANNED PROCEDURE: Laparoscopy with ovar barrington cystectomy versus oophorectomy and possible laparotomy. HISTORY OF PRESENT ILLNESS: Ms. Beth is a 33-year-old female 2, para 2 with a prior total abdominal hysterectomy and left salpingo-oophorectomy in 2014 for fibroids and a large left hemorrhagic ovaria n cyst. She was seen in the [place], [place] where she lives yesterday with a 1-day history of acute onset of severe right lower quadrant pain radiating to he r back. She also has been nauseated and throwing up a few times. She is pa ssing flatus. She said that she had a CT scan and an ultrasound perf ormed at the facility up in [facility] imaging and th e pelvic ultrasound on September 01 showed the overall dimensions of the right adnexa ovarian c omplex were 10 x 7.5 cm with increased vascularity seen along the i nternal septations, complex area demonstrates subtle interval enlargement of her previously s een cyst, now measuring 4.3 x 3.8. She is also status post a left oophorectomy. There is no free fluid and the uterus is surgically absent. She had a CT scan performe d, which showed findings consistent with the ultrasou nd. There was a multicystic appearance of the right ovary with the largest cystic locule measuring u p to 7 cm. There was no free air or fluid and there was noted be no lymphaden opathy. There were nonobstructing stones in bilateral kidneys and t here was a mild bilateral hydroureteronephrosis, likely from borderline di stended bladder. On exam today in the office, she had rebound and guarding in the right lower quadrant and a very tender enlarged righ t adnexa. I told her based upon the CT and ultrasound report as wel l as her clinical exam, she needed to be operated on today. We talked about the possibilities including benign or malignant disease and also the possibility of torsion including the inability to save the ovary or disease that is so significant that the ovary ca nnot be salvaged and an oophorectomy and salpingectomy are necessary. We talked about the risks of surgery in general and the risks peculia r to laparoscopy and laparotomy, which can include but are not limited to damage to bow el, bladder, ureters, surrounding vascular and adnexal structu res, possible hemorrhage, transfusion, infection, possible further surgery should injuries occur either in the near or distant future and also the possibility of the u se of blood or blood products should they be emergently necessary in the perio perative setting. She voiced PATIENT NAME: HONG BETH [id number] understanding of our discussion, asked appropria te questions, and all were answered to she and her stated satisfact ion. PAST MEDICAL HISTORY: 1. Urinary tract infection. 2. History of depression. 3. History of fibroids as previously mentioned f rom 2014. PAST SURGICAL HISTORY: 1. Appendectomy in 2006. 2. Myomectomy in 2006 and May 2007 with end ometriosis and fibroids removed. 3. In 2008, laparoscopic cyst aspiration x3. 4. Lysis of adhesions. 5. In 2008, she had a stent from her renal stone with removal. 6. Two previous deliveries. MEDICATIONS: None. ALLERGIES TO DRUGS: TORADOL. PAST OBSTETRICAL AND GYNECOLOGICAL HISTORY: Very complex history of endometriosis and fibroids resulting in ultimate ly a total abdominal hysterectomy and left salpingo-oophorect louise in 2014 performed by me at [facility]. No other high-grade abnormal Paps. No prior PID. No STDs and the right ovary appeared normal at the time of surge ry in 2014. She has 2 living children. SOCIAL HISTORY: Denies smoking, alcohol, or drug use. , lives with her and children at home. PHYSICAL EXAMINATION: GENERAL: She is in obvious distress today. She w as in a position on the examination table. HEENT: Normocephalic and atraumatic. LUNGS: Clear bilaterally. HEART: Regular rate and rhythm. ABDOMEN: Soft except in the right lower quadrant where there is guarding and rebound noted. There is no mass palpable. PELVIC: The right adnexa is very enlarged and ex quisitely tender. EXTREMITIES: Nontender. There is no edema. IMPRESSION AND PLAN: Pelvic mass, probable ovari an cystic lesion with differential diagnosis being quite broad to incl ude both benign and malignant disease and also the possibility of needing to r emove the entire ovary versus being able to salvage the ovary. I told her at t he present time, we needed to move ahead with at least an operative la paroscopy and possible laparotomy. She and her both voiced risaernie ban, were very open to the fact that she may end up with an oophorectomy and therefore at that point possibly be a candidate for hormone replacement therapy. I daniela d her I would like to be able to save her ovary considerernie g her young age, but until we get a better idea with laparoscopy what is going on with her ovary, we really cannot say at this time. If the ovary is necrotic or , it will need t o be removed in its entirety. If there is torsion with abi ing tissue, then we will try to untwist the pedicle and hopefully save the ovary and then pe rform a cystectomy. All questions were PATIENT NAME: HONG BETH [id number] answered and she is ready to move direct ly to the hospital and we will prepare the operating room as soon as possible. Dictated By: Elmer Flores III, MD WT: HP:GILBERTO/01/NTS Conf#: [id number]/DID#: [id number] Authenticated by Elmer Flores MD On 019 01:00:45 PM at 1301 PATIENT NAME: DIEUDONNE BETHDAVIDE Zoltan [id number] [id number] [facility] - 03:55:00-00:00 Discharge Instructions 2 Karsten stefanie (LUF/ABI/SA) Discharge Diagnosis kidney stones Important Information Consult your physician or re turn to the Emergency Department immediately if worse, if not better as expected, or if any problems arise. Follow Up Care Yes Important Information Please understand that you have received care on ly on an emergency basis. If your condition does not i mprove, you should call your personal physician for follow-up care. If you do not have a physician, you may call the referred physician listed. If you have questions about your care or these discharge instructions, you may call the Emergency Department. Please take your discharge paperwork with you to any follow-up appointments. Follow-Up With: Primary Care Physician Activity Level As tolerated, unrestricted Diet Regular Prescriptions Given Via: Printed and given to patient/caregiver. Patient Teaching Patient education provided
--- NOTE | 2022-11-29 13:36 | ER ---
Nurse's Notes [facility] Name: Hong Pace Age: 37 yrs Sex: Female : 1985 Arrival Date: 11/29/2022 Time: 12:07 Bed IW2 Private MD: Diagnosis: Headache Presentation: 11/29 12:18 Chief complaint: Patient states: "I started getting a bad headache that woke me up from mb9 sleeping about 30 minutes ago. I've never had a headache like this before. Its on the left side of my head and radiates down my jaw. I don't have any numbness or tingling but i'm really dizzy and been vomiting.". Coronavirus screen: Vaccine status: Patient reports receiving the 2nd dose of the covid vaccine. Ebola Screen: No symptoms or risks identified at this time. Initial Sepsis Screen: Does the patient meet any 2 criteria? No. Patient's initial sepsis screen is negative. Does the patient have a suspected source of infection? No. Patient's initial sepsis screen is negative. Risk Assessment: Do you want to hurt yourself or someone else? Patient reports no desire to harm self or others. Onset of symptoms was November 29, 2022. 12:18 Method Of Arrival: Wheelchair mb9 12:18 Acuity: [place] 3 mb9 Triage Assessment: 12:27 Headache History: Denies prior headaches. General: Appears uncomfortable, Behavior is mb9 cooperative. Pain: Complains of pain in head Pain radiates to left side of jaw Pain currently is 10 out of 10 on a pain scale. Pain began suddenly, Also complains of nausea. Neuro: [place] Agitation-Sedation Scale (RASS): 0 - Alert and Calm Level of Consciousness is awake, alert, obeys commands, Oriented to person, place, time, situation, Appropriate for age Site Administrator are equal bilaterally Moves all extremities. Gait is unsteady, Speech is normal, Facial symmetry appears normal, Pupils are PERRLA, Intact. Respiratory: Airway is patent. GI: Reports nausea. Derm: Skin is pink, warm \\T\\ dry. Musculoskeletal: Range of motion: intact in all extremities. Historical: - Allergies: 12:21 Morphine; mb9 12:21 Toradol; mb9 - PMHx: 12:21 Endometriosis of vagina; melanoma; Thyroidectomy; mb9 - PSHx: 12:21 Appendectomy; hysterectomy; Cholecystectomy; Multiple abdominal surgeries; mb9 section; Ovary removal; Thyroidectomy; - Immunization history:: Adult Immunizations up to date. - Social history:: Smoking status: Patient reports the use of cigarette tobacco products, smokes one-half pack cigarettes per day. Assessment: 13:28 Reassessment: not in lobby, registration reports she left. iw Vital Signs: 12:18 BP 145 / 102; Pulse 92; Resp 16; Temp 98.6; Pulse Ox 98% on R/A; Weight 104.33 kg; mb9 Height 5 ft. 4 in. ; Pain 10/10; 12:18 Body Mass Index 39.48 (104.33 kg, 162.56 cm) mb9 12:18 Pain Scale: Adult mb9 NIH Stroke Scale Scores: 12:21 NIHSS Score: 0 mb9 ED Course: 12:08 Patient arrived in ED. am2 12:09 Rosalino Tucker DO is Attending Physician. ms3 12:12 Arm band placed on. mb9 12:21 Triage completed. mb9 13:29 Radiology exam delayed due to IV insertion attempt and/or patient not having jg10 appropriate IV at this time. 13:35 Edgardo Clay MD is Referral Physician. ms3 Administered Medications: 13:43 CANCELLED (Patient Refused): NS 0.9% IV 1000 ml IV at 1000 ml once iw 13:43 CANCELLED (Patient Refused): metoCLOPramide IVP 10 mg IVP once; over 1 to 2 minutes iw 13:43 CANCELLED (Patient Eloped): diphenhydrAMINE IVP 25 mg IVP once iw Outcome: 13:35 Discharge ordered by . ms3 13:43 Patient left the ED. iw NIH Stroke Scale - NIH Stroke Score Date: 11/29/2022 Time: 12:21 Total Score = 0 10. Dysarthria (speech clarity - read or repeat words) - 0(Normal) 11. Extinction and Inattention (visual/tactile/auditory/spatial/personal) - 0(No abnormality) 1a. Level of Consciousness (LOC) - 0(Alert) 1b. Level of Consciousness (LOC) (Month \\T\\ Age) - 0(Both) 1c. LOC Commands (Open \\T\\ Closes Eyes/Biomass Technician) - 0(Both) 2. Best Gaze (Lateral Gaze Paresis) - 0(Normal) 3. Visual Field Loss - 0(No visual loss) 4. Facial Palsy - 0(Normal) 5a. Left Arm: Motor (10-second hold) - 0(No drift) 5b. Right Arm: Motor (10-second hold) - 0(No drift) 6a. Left Leg: Motor (5-second hold - always test supine) - 0(No drift) 6b. Right Leg: Motor (5-second hold - always test supine) - 0(No drift) 7. Limb Ataxia (finger/nose \\T\\ heel/remy - test with eyes open) - 0(Absent) 8. Sensory Loss (pinprick arms/legs/face) - 0(Normal) 9. Best Language: Aphasia (description/naming/reading) - 0(No aphasia) Initials: mb9 Signatures: Desiree Miranda, RN [place] iw Magdalene Chaney am2 Rosalino Tucker DO DO ms3 Susan Costa jg10 Rufina Bruner RN RN mb9
--- NOTE | 2022-11-29 13:36 | EDPHYS ---
Physician Documentation [facility] Name: Hong Pace Age: 37 yrs Sex: Female : 1985 Arrival Date: 11/29/2022 Time: 12:07 Bed IW2 Private MD: ED Physician Rosalino Tucker HPI: 11/29 12:17 This 37 yrs old Female presents to ER via Unassigned with complaints of Near Syncope, ms3 Headache, Dizziness, Nausea. 12:17 37-year-old female with past medical history of kidney stones presents for headache, ms3 vomiting that began on waking from sleep at 12 PM. Patient states she laid down at 11 AM. Patient endorses headache, dizziness. Patient states the pain is located in the left side of her head and rated a 10/10. Patient denies alleviating or inciting factors. Historical: - Allergies: 12:21 Morphine; mb9 12:21 Toradol; mb9 - PMHx: 12:21 Endometriosis of vagina; melanoma; Thyroidectomy; mb9 - PSHx: 12:21 Appendectomy; hysterectomy; Cholecystectomy; Multiple abdominal surgeries; mb9 section; Ovary removal; Thyroidectomy; - Immunization history:: Adult Immunizations up to date. - Social history:: Smoking status: Patient reports the use of cigarette tobacco products, smokes one-half pack cigarettes per day. ROS: 12:17 Constitutional: Negative for fever, and chills. Neck: Negative for injury, pain, and ms3 swelling, Cardiovascular: Negative for chest pain, and palpitations. Respiratory: Negative for shortness of breath, cough, wheezing, and pleuritic chest pain, Abdomen/GI: Negative for abdominal pain, nausea, vomiting, diarrhea, and constipation, MS/Extremity: Negative for injury and deformity, Skin: Negative for injury, rash, and discoloration. 12:17 Neuro: Positive for headache. 12:17 Neuro: Positive for dizziness. 12:17 All other systems are negative. Exam: 12:17 Constitutional: This is a well developed, well nourished patient who is awake, alert, ms3 and in no acute distress. Head/Face: Normocephalic, atraumatic. ENT: Nares patent. No nasal discharge, no septal abnormalities noted. Tympanic membranes are normal and external auditory canals are clear. Oropharynx with no redness, swelling, or masses, exudates, or evidence of obstruction, uvula midline. Mucous membranes moist. Neck: Trachea midline, no cervical lymphadenopathy. Supple, full range of motion without nuchal rigidity, or vertebral point tenderness. No Meningismus. Chest/axilla: Normal chest wall appearance and motion. Nontender with no deformity. Cardiovascular: Regular rate and rhythm with a normal S1 and S2. No gallops, murmurs, or rubs. Normal PMI, no JVD. No pulse deficits. Respiratory: Lungs have equal breath sounds bilaterally, clear to auscultation and percussion. No rales, rhonchi or wheezes noted. No increased work of breathing, no retractions or nasal flaring. Abdomen/GI: Soft, non-tender, with normal bowel sounds. No distension or tympany. No guarding or rebound. No evidence of tenderness throughout. Skin: Warm, dry with normal turgor. Normal color with no rashes, no lesions, and no evidence of cellulitis. MS/ Extremity: Pulses equal, no cyanosis. Neurovascular intact. Full, normal range of motion. 12:17 Neuro: Orientation: is normal, Mentation: is normal, Memory: is normal, Cranial nerves: CN I not tested, CN II- XII are normal as tested, Cerebellar function: normal finger to nose testing, Motor: is normal, Sensation: is normal, no obvious gross deficits. Vital Signs: 12:18 BP 145 / 102; Pulse 92; Resp 16; Temp 98.6; Pulse Ox 98% on R/A; Weight 104.33 kg; mb9 Height 5 ft. 4 in. ; Pain 10/10; 12:18 Body Mass Index 39.48 (104.33 kg, 162.56 cm) mb9 12:18 Pain Scale: Adult mb9 NIH Stroke Scale Scores: 12:21 NIHSS Score: 0 mb9 MDM: 12:16 Patient medically screened. ms3 12:17 Differential Diagnosis: migraine vs vertebral artery dissection vs SAH. ms3 13:36 Data reviewed: vital signs, nurses notes, and as a result, I will discharge patient. ms3 Counseling: I had a detailed discussion with the patient and/or guardian regarding:. ED course: Patient left prior to medications being given, or imaging performed. Unable to give patient discharge instructions or follow-up. Patient is free to return to the emergency department to continue her care at any time. Administered Medications: 13:43 CANCELLED (Patient Refused): NS 0.9% IV 1000 ml IV at 1000 ml once iw 13:43 CANCELLED (Patient Refused): metoCLOPramide IVP 10 mg IVP once; over 1 to 2 minutes iw 13:43 CANCELLED (Patient Eloped): diphenhydrAMINE IVP 25 mg IVP once iw Disposition Summary: 11/29/22 13:35 Discharge Ordered Location: Home ms3 Condition: Stable ms3 Diagnosis - Headache ms3 Followup: ms3 - With: Edgardo Clay MD - When: 1 - 2 days - Reason: Recheck today's complaints Forms: - Medication Reconciliation Form ms3 - Thank You Letter ms3 - Antibiotic Education ms3 - Prescription Opioid Use ms3 NIH Stroke Scale - NIH Stroke Score Date: 11/29/2022 Time: 12:21 Total Score = 0 10. Dysarthria (speech clarity - read or repeat words) - 0(Normal) 11. Extinction and Inattention (visual/tactile/auditory/spatial/personal) - 0(No abnormality) 1a. Level of Consciousness (LOC) - 0(Alert) 1b. Level of Consciousness (LOC) (Month \T\ Age) - 0(Both) 1c. LOC Commands (Open \T\ Closes Eyes/Drying Machine Operator Package Yarns) - 0(Both) 2. Best Gaze (Lateral Gaze Paresis) - 0(Normal) 3. Visual Field Loss - 0(No visual loss) 4. Facial Palsy - 0(Normal) 5a. Left Arm: Motor (10-second hold) - 0(No drift) 5b. Right Arm: Motor (10-second hold) - 0(No drift) 6a. Left Leg: Motor (5-second hold - always test supine) - 0(No drift) 6b. Right Leg: Motor (5-second hold - always test supine) - 0(No drift) 7. Limb Ataxia (finger/nose \T\ heel/remy - test with eyes open) - 0(Absent) 8. Sensory Loss (pinprick arms/legs/face) - 0(Normal) 9. Best Language: Aphasia (description/naming/reading) - 0(No aphasia) Initials: mb9 Signatures: Dispatcher [employer] EDMS Rosalino Tucker, DO ms3 Rufina Bruner RN RN mb9 Desiree Miranda RN iw Corrections: (The following items were deleted from the chart) 13:43 12:20 NS 0.9% IV 1000 ml IV at 1000 ml once ordered. ms3 iw :43 12:20 metoCLOPramide IVP 10 mg IVP once; over 1 to 2 minutes ordered. ms3 iw 13:43 12:20 diphenhydrAMINE IVP 25 mg IVP once ordered. ms3 iw
[2022-11-29 13:48] VITALS: BP 145/102; TEMP 98.6; O2SAT 98
== END 2022-11-29 13:43 | disposition home or self-care (01) ==
LOC: ER 12:07
DX: R51.9 Headache, unspecified (principal); R42 Dizziness and giddiness
CPT/HCPCS: 99283

== ENCOUNTER 2023-03-20 21:56 | Emergency (ER) | payer SELFPAY ==
--- OUTSIDE RECORDS SUMMARY | 2023-03-20 22:07 | XMS REPORT | Clinical Summary ---
:1985 Author Organization [facility] MD [facility] Center Address [address] [place] [address] Care Team Providers Name Role Phone Keila [...] CYST SURGERY 08/29/2018 - Right 09/28/2018 NC EXCISION MAL LESION 09/23/2018 Abdomen/Right Procedure : [...] Vaccination (#1) 01/11/1987 Results Not on fileafter 03/20/2022 Advance Directives Code Status Date Activated Date Inactivated Comments Full Code 10/04/2018 8:21 PM 10/08/2018 5:55 PM Code Status Date Activated Date Inactivated Comments Full Code 09/23/2018 1:48 PM 09/23/2018 6:55 PM Care Teams Lyft Driver Relationship Specialty Start Date End Date Keila Valentine MD PCP - General Surgical Oncology 08/26/[address] [place] [id number] [address], Navi H, WEB PRODUCTION ASSISTANT PCP - External Primary Family [facility] 09/08/18 1702 Jake Lewis Care Provider YOLANDA ROSA [id number]
--- OUTSIDE RECORDS SUMMARY | 2023-03-20 22:25 | XMS REPORT | Continuity of Care Document ---
:1985 Author Organization [facility] t Address [address] [place] [address] [place] [id number] Care Team Providers Name Role Phone Keila Valentine MD Primary Care Physician Josué Arango Attending Clinician Unavailable Tato SWAIN Attending Clinician Unavailable Tato Keating Attending Clinician REHAN COTTON Attending Clinician Unavailable Lion Maxwell Attending Clinician Unavailable KOMAL CORREA Attending Clinician Unavailable Komal Correa MD Attending Clinician VALENTIN BOX Attending Clinician Unavailable Valentin Box MD Attending Clinician SUZANNE LOPEZ Attending Clinician Unavailable Suzanne Lopez DO Attending Clinician MONTSERRAT ACOSTA Attending Clinician Unavailable Montserrat Osuna Attending Clinician SANTINO_Ingrid_Truman_ Attending Clinician Unavailable MAGDALENE LUCIA Attending Clinician Unavailable Magdalene Lucia MD Attending Clinician Unknown, Attending Attending Clinician Unavailable RIDGE PAGAN Attending Clinician Unavailable Ridge Pagan MD Attending Clinician Truman Quintero Attending Clinician Unavailable TRICE HARRIS Attending Clinician Unavailable Steven LINEN ROOM ATTENDANT, Trice Attending Clinician Ameena Dupree Attending Clinician AMEENA PRESTON Attending Clinician Unavailable Praveen Blas MD Attending Clinician EKTA BERMUDEZ Attending Clinician Unavailable PATRICK CARRANZA Attending Clinician Unavailable Olga Clements Attending Clinician Unavailable LEANNE HANNAH Attending Clinician Unavailable Leanne De Anda Attending Clinician Eve Chaves RN Attending Clinician Unavailable EbraPatrick Watson Attending Clinician Doctor Unassigned, Playita Attending Clinician Unavailable SETH DYKES Attending Clinician Unavailable Viktoriya Wright RN Attending [...] Clinician Unavailable QUINTIN BRITO Attending Clinician Unavailable REHAN COTTON Admitting Clinician Unavailable Lion Maxwell Admitting Clinician Unavailable SUZANNE LOPEZ Admitting Clinician Unavailable VALENTIN BOX Admitting Clinician Unavailable SANTINO_Ingrid_Truman_ Admitting Clinician Unavailable RIDGE PAGAN Admitting Clinician Unavailable Truman Quintero Admitting Clinician Unavailable TRICE HARRIS Admitting Clinician Unavailable EKTA BERMUDEZ Admitting Clinician Unavailable Physician, No Primary or Family Admitting Clinician UnavailLEANNE Chino Admitting Clinician Unavailable SETH DYKES Admitting Clinician Unavailable JUAN MENSAH Admitting Clinician [...] Number Effective Date Expiration Date S ource [id number] 1959 00:00:00 MEDI-SHARE C1 [id number] [facility] ([place], [place]) MEDI-SHARE C1 [id number] [facility] MEDI-SHARE C1 [id number] [facility] [place]) [id number] 1959 00:00:00 MEDI-SHARE C1 [id number] [facility] PHCS GENERIC [id number] 2018 00:00:00 Problems Condition Condition Condition Status [...] Formattin ity of 00:00: g of this [place] 00 note is MD jim Springer from the n original. Cancer BMI [facility] Readings from Last 2 Encounter s: 09/08/18 36.82 kg/m2 Hypothyroi Hypothyroi Disease Active U nivers dism dism 3-11 ity of 00:00: [place] 00 MD [facility] Malignant Malignant Disease Active Uni vers melanoma melanoma 3-06 ity of of other of other 00:00: [place] part of part of 00 trunk trunk [...] l (LUF/LI V/SA) Anxiety Anxiety Problem Active [facility] (LUF/LI V/SA) [id number] Endometrio Problem Active Co mmon ma [facility] No known No known Disease Unive rs active active ity of problems problems [facility] Allergies, Adverse Reactions, Alerts Allergy Allergy Status Severity Reaction(s) Onset Inactive Treating Comm ents Source Name Type Date Date Clinician [place] DA Active [place] rash 2021-07 [facility] [place] 00:[facility]: d 00 [facility] ketorola DA Active U rash [facility] 2-07 [place] 00:00: [facility] 00 [facility] KETOROLA DRUG Active Low Rash 2020-07 Univers C INGREDI - ity of 00:00: [place] 00 [facility] Ketorola Propensi Active Rash 2020-07 Univer s c ty to 08-22 ity of adverse 00:00: [place] reaction 00 [facility] [place]ola DA Active [place] 2018-0 [facility] 9[facility] [place] ketorola DA Active U rash [facility] 9-24 [place] 00:00: d 00 [facility] ketorola DA Active U [facility] 9-24 [place] 00:00: d 00 [facility] Ket[place] Drug Active Itching Univers c Allergy 07-19 ity of 00:00: [place] 00 MD [facility] KETOROLA DRUG Active Med Itching MD Duarte INGREDI 07-19 Gian 00:00: n 00 Toradol DA Active Unknown Rash [facility] (LUF/LI V/SA) 0 Drug Active Unknown Common allergy [facility] Family History Family Member Diagnosis Comments Start Date Stop Date Source Natural mother -Breast cancer [facility] Social History Social Habit Start Date Stop Date Quantity Comments Source Sexual orientation [facility] of [facility] ASSERTION [facility] Gender identity Universit y [facility] History of Social 2023-03-18 2023-03-18 Univers ity of function 00:00:00 00:00:00 [facility] Exposure to 2022-11-10 2022-11-20 Not sure University of SARS-CoV-2 (event) 00:00:00 21:50:00 [facility] Tobacco use and 2021-08-29 2021-08-29 Smokeless Universit y of exposure 00:00:00 00:00:00 tobacco non-user [facility] Alcohol intake 2018-10-04 2018-10-04 Current University of 00:00:00 00:00:00 non-drinker of [facility] (finding) Cigarettes smoked 2018-09-04 2018-09-04 Univers ity of current (pack per 00:00:00 00:00:00 [place] Zoltan Neely ) - Reported Cancer Ce nter Cigarette 2018-09-04 2018-09-04 University of pack-years 00:00:00 00:00:00 [facility] Sex Assigned At [birth year] Universit y of 00:00:00 00:00:00 [place] MD [facility] Smoking Status Start Date Stop Date Source Tobacco smoking [facility] consumption unknown Never smoked tobacco [facility] Former Smoker 2020-05-03 00:00:00 2020-05-03 [facility] Medications Ordered Filled Start Stop Current Ordering Indication Dosage Frequency Signature Comments Components Source Medication Medication Date Date Medication? Clinician (SIG) Name Name ondansetron 2022- No 4mg 4 mg, Slow Univers (ZOFRAN 03-19 IV Push, ity of (PF)) 05:45: 04:42 ONCE, 1 [place] injection 4 00 :00 dose, On Medi felipa mg Tue Branch 03/19/23 at 0045, JOSE ondansetron 2022- No 4mg 4 mg, Slow Univers (ZOFRAN 03-19 IV Push, ity of (PF)) 05:45: 04:42 ONCE, 1 [place] injection 4 00 :00 dose, On Medi felipa mg Tue Branch 03/19/23 at 0045, JOSE FENTanyl PF 2022- No 50ug 50 mcg, Un spring (SUBLIMAZE 03-19 Slow IV ity o f (PF)) 05:30: 04:42 Push, [place] injection 00 :00 ONCE, 1 Medical 50 mcg dose, On Branch 03/19/23 at 0030, Routine FENTanyl PF 2022- No 50ug 50 mcg, Un spring (SUBLIMAZE 03-19 Slow IV ity o f (PF)) 05:30: 04:42 Push, [place] injection 00 :00 ONCE, 1 Medical 50 mcg dose, On Branch 03/19/23 at 0030, Routine acetaminoph 2022- Yes 975mg 975 mg, U nivers en 12-25 Oral, ity of (TYLENOL) 05:30: 17:29 ONCE, 1 [place] tablet 975 00 :00 dose, On Medic al mg Tue Branch 12/25/22 at 0030, JOSE ondansetron 2022- Yes 4mg 4 mg, Slow Univers (ZOFRAN 12-25 IV Push, ity of (PF)) 05:30: 17:29 ONCE, 1 [place] injection 4 00 :00 dose, On Medi felipa mg [facility] 12/25/22 at 0030, JOSE NaCl 0.9% 2022- No 1000mL at 999 Uni vers (NS) bolus 12-16 mL/hr, ity of infusion 23:30: 00:19 1,000 mL, [place] as 1,000 mL 00 :00 IV Medical Piggyback, Branch ONCE, 1 dose, On 12/16/22 at 1830, STAT famotidine 2022- No 20mg 20 mg, Univ ers (PEPCID 12-16 Slow IV ity of (PF)) 23:00: 22:58 Push, [place] injection 00 :00 ONCE, 1 Medical 20 mg dose, On Branch 12/16/22 at 1800, JOSE FENTanyl PF 2022- No 75ug 75 mcg, Un spring (SUBLIMAZE 12-16 Slow IV ity o f (PF)) 23:00: 22:57 Push, [place] injection 00 :00 ONCE, 1 Medical 75 mcg dose, On Branch 12/16/22 at 1800, STAT proMETHazin 2022- No 25mg 25 mg, IV Univers e 6-18 06-18 Piggyback, ity of (PHENERGAN) 22:45: 22:51 ONCE, 1 [place] 25 mg in 00 :00 dose, On Medical NaCl 0.9% Sun Branch (NS) 50 mL 12/16/22 at IV 1745, JOSE piggyback proMETHazin 2022-0 Yes [id number] 25mg Take 1 Univers e 25 mg 6-18 tablet by ity of tablet 00:00: mouth [place] 00 every 6 Medical (six) Branch hours as needed for Nausea and Vomiting (N/V). proMETHazin 0 Yes [id number] 25mg Take 1 Univers e 25 mg 6-18 tablet by ity of tablet 00:00: mouth [place] 00 every 6 Medical (six) Branch hours as needed for Nausea and Vomiting (N/V). proMETHazin 2022-0 Yes [id number] 25mg Take 1 Univers e 25 mg 6-18 tablet by ity of tablet 00:00: mouth [place] 00 every 6 Medical (six) Branch hours as needed for Nausea and Vomiting (N/V). proMETHazin 0 Yes [id number] 25mg Take 1 Univers e 25 mg 6-18 tablet by ity of tablet 00:00: mouth [place] 00 every 6 Medical (six) Branch hours as needed for Nausea and Vomiting (N/V). cefdinir 2022- No [id number] 300mg Take 1 U nivers 300 mg 12-16 capsule by ity of capsule 00:00: 04:59 mouth in [place] 00 :00 the Medical morning Branch and 1 capsule in the evening. Do all this for 7 days. iopamidol 2022- No [id number] 100mL 100 mL, Univers (ISOVUE 11-21-24 Intravenou ity o f 370-500 mL) 06:30: 05:32 s, ONCE, 1 [place] injection 00 :00 dose, On Medica l 100 mL Wed Branch 11/21/22 at 0130, Routine FENTanyl PF 2022- No 50ug 50 mcg, Un spring (SUBLIMAZE 11-21-24 Slow IV ity o f (PF)) 05:45: 05:12 Push, [place] injection 00 :00 ONCE, 1 Medical 50 mcg dose, On Branch 11/21/22 at 0045, Routine FENTanyl PF 2022-2022- No 50ug 50 mcg, Un spring (SUBLIMAZE 11-21 Slow IV ity o f (PF)) 04:30: 03:41 Push, [place] injection 00 :00 ONCE, 1 Medical 50 mcg dose, On Branch 11/20/22 at 2330, Routine NaCl 0.9% 2022- No 1000mL at 999 Uni vers (NS) bolus 11-21 mL/hr, ity of infusion 04:30: 05:11 1,000 mL, [place] 1,000 mL 00 :00 IV Medical Infusion, Branch ONCE, 1 dose, On Sat11/20/22 at 2330, JOSE proMETHazin 2022- No 12.5mg 12.5 mg, Univers e 11-21 IV ity of (PHENERGAN) 03:45: 03:41 Piggyback, [place] 12.5 mg in 00 :00 ONCE, 1 Medica l NaCl 0.9% dose, On Branch (NS) 50 mL Tue IV 11/20/22 at piggyback 2245, JOSE FENTanyl PF 2022- No 75ug 75 mcg, Un spring (SUBLIMAZE 10-26 Slow IV ity o f (PF)) 05:15: 05:20 Push, [place] injection 00 :00 ONCE, 1 Medical 75 mcg dose, On Branch Sat10/26/22 at 0015, STAT NaCl 0.9% 2022- No 1000mL at 999 Uni vers (NS) bolus 10-26 mL/hr, ity of infusion 04:30: 05:21 1,000 mL, [place] 1,000 mL 00 :00 IV Medical Piggyback, Branch ONCE, 1 dose, On [place] 10/25/22 at 2330, STAT FENTanyl PF 2022-0 2022- No 100ug 100 mcg, Univers (SUBLIMAZE 10-26 Slow IV ity o f (PF)) 04:00: 04:06 Push, [place] injection 00 :00 ONCE, 1 Medical 100 mcg dose, On Branch [place] 10/25/22 at 2300, STAT proMETHazin 0 2022- No 25mg 25 mg, IV Univers e 10-26 Piggyback, ity of (PHENERGAN) 04:00: 04:05 ONCE, 1 [place] 25 mg in 00 :00 dose, On Medical NaCl 0.9% [place] Branch (NS) 50 mL 10/25/22 at IV 2300, JOSE piggyback morpHINE (2 2022- No 2mg 2 mg, Slow Univers mg/mL) 10-03 IV Push, ity of injection 2 07:15: 06:40 ONCE, 1 [place] mg 00 :00 dose, On Medical 10/03/22 Branch at 0215, JOSE ondansetron 2022- No 4mg 4 mg, Slow Univers (ZOFRAN 10-03 IV Push, ity of (PF)) 06:00: 05:42 ONCE, 1 [place] injection 4 00 :00 dose, On Medi felipa mg 10/03/22 Branch at 0100, JOSE FENTanyl PF 2022- No 50ug 50 mcg, Un spring (SUBLIMAZE 10-03 Slow IV ity o f (PF)) 04:45: 05:42 Push, [place] injection 00 :00 ONCE, 1 Medical 50 mcg dose, On Branch 10/02/22 at 2345, JOSE ondansetron 2021-07- No [id number] 8mg Univers (ZOFRAN-ODT 2-15 -14 ity of ) 00:45: 23:45 [place] disintegrat 00 :00 Medical ing tablet Branch 8 mg ondansetron 2021-07- No [id number] 8mg 8 mg, Univers (ZOFRAN-ODT 2-15 -14 Oral, ity of ) 00:45: 23:45 ONCE, 1 [place] disintegrat 00 :00 dose, On Medi felipa ing tablet Wed Branch 8 mg 06/13/22 at 1845, Routine benzonatate 2021-07 Yes [id number] 200mg Take 2 Univers 100 mg 2-14 capsules ity of capsule 00:00: by mouth [place] 00 every 8 Medical (eight) Branch hours as needed for Cough. ondansetron 2021-07 Yes [id number] 4mg Take 1 Univers 4 mg 2-14 tablet by ity of disintegrat 00:00: mouth [place] ing tablet 00 every 8 Medica l (eight) Branch hours as needed for Nausea and Vomiting (N/V). nirmatrelvi 2021-07 Yes [id number] 3{tbl} Take 3 Univers r-ritonavir 2-14 tablets by it y of (PAXLOVID, 00:00: mouth in [place] EUA,) 300 00 the Medical mg (150 mg morning Branch x 2)-100 mg and 3 tablet tablets in the evening. ondansetron 2021-07 Yes [id number] 4mg Take 1 Univers 4 mg 2-14 tablet by ity of disintegrat 00:00: mouth [place] ing tablet 00 every 8 Medica l (eight) Branch hours as needed for Nausea and Vomiting (N/V). nirmatrelvi 2021-07 Yes [id number] 3{tbl} Take 3 Univers r-ritonavir 2-14 tablets by it y of (PAXLOVID, 00:00: mouth in [place] EUA,) 300 00 the Medical mg (150 mg morning Branch x 2)-100 mg and 3 tablet tablets in the evening. promethazin 2021-07 Yes [id number] 5mL Take 5 mL Univers e-dextromet 2-14 by mouth 4 it y of horphan 00:00: (four) [place] 6.25-15 00 times Medical mg/5 mL daily as Branch syrup needed for Cough. ondansetron 2021-07 Yes [id number] 4mg Take 1 Univers 4 mg 2-14 tablet by ity of disintegrat 00:00: mouth [place] ing tablet 00 every 8 Medica l (eight) Branch hours as needed for Nausea and Vomiting (N/V). nirmatrelvi 2021-07 Yes [id number] 3{tbl} Take 3 Univers r-ritonavir 2-14 tablets by it y of (PAXLOVID, 00:00: mouth in [place] EUA,) 300 00 the Medical mg (150 mg morning Branch x 2)-100 mg and 3 tablet tablets in the evening. promethazin 2021-07 Yes [id number] 5mL Take 5 mL Univers e-dextromet 2-14 by mouth 4 it y of horphan 00:00: (four) [place] 6.25-15 00 times Medical mg/5 mL daily as Branch syrup needed for Cough. ondansetron 2021-07 Yes [id number] 4mg Take 1 Univers 4 mg 2-14 tablet by ity of disintegrat 00:00: mouth [place] ing tablet 00 every 8 Medica l (eight) Branch hours as needed for Nausea and Vomiting (N/V). nirmatrelvi 2021-07 Yes [id number] 3{tbl} Take 3 Univers r-ritonavir 2-14 tablets by it y of (PAXLOVID, 00:00: mouth in [place] EUA,) 300 00 the Medical mg (150 mg morning Branch x 2)-100 mg and 3 tablet tablets in the evening. promethazin 2021-07 Yes [id number] 5mL Take 5 mL Univers e-dextromet 2-14 by mouth 4 it y of horphan 00:00: (four) [place] 6.25-15 00 times Medical mg/5 mL daily as Branch syrup needed for Cough. ondansetron 2021-07 Yes [id number] 4mg Take 1 Univers 4 mg 2-14 tablet by ity of disintegrat 00:00: mouth [place] ing tablet 00 every 8 Medica l (eight) Branch hours as needed for Nausea and Vomiting (N/V). nirmatrelvi 2021-07 Yes [id number] 3{tbl} Take 3 Univers r-ritonavir 2-14 tablets by it y of (PAXLOVID, 00:00: mouth in [place] EUA,) 300 00 the Medical mg (150 mg morning Branch x 2)-100 mg and 3 tablet tablets in the evening. promethazin 2021-07 Yes [id number] 5mL Take 5 mL Univers e-dextromet 2-14 by mouth 4 it y of horphan 00:00: (four) [place] 6.25-15 00 times Medical mg/5 mL daily as Branch syrup needed for Cough. ondansetron 2021-07 Yes [id number] 4mg Take 1 Univers 4 mg 2-14 tablet by ity of disintegrat 00:00: mouth [place] ing tablet 00 every 8 Medica l (eight) Branch hours as needed for Nausea and Vomiting (N/V). nirmatrelvi 2021-07 Yes [id number] 3{tbl} Take 3 Univers r-ritonavir 2-14 tablets by it y of (PAXLOVID, 00:00: mouth in [place] EUA,) 300 00 the Medical mg (150 mg morning Branch x 2)-100 mg and 3 tablet tablets in the evening. promethazin 2021-07 Yes [id number] 5mL Take 5 mL Univers e-dextromet 2-14 by mouth 4 it y of horphan 00:00: (four) [place] 6.25-15 00 times Medical mg/5 mL daily as Branch syrup needed for Cough. ondansetron 2021-07 Yes [id number] 4mg Take 1 Univers 4 mg 2-14 tablet by ity of disintegrat 00:00: mouth [place] ing tablet 00 every 8 Medica l (eight) Branch hours as needed for Nausea and Vomiting (N/V). nirmatrelvi 2021-07 Yes [id number] 3{tbl} Take 3 Univers r-ritonavir 2-14 tablets by it y of (PAXLOVID, 00:00: mouth in [place] EUA,) 300 00 the Medical mg (150 mg morning Branch x 2)-100 mg and 3 tablet tablets in the evening. promethazin 2021-07 Yes [id number] 5mL Take 5 mL Univers e-dextromet 2-14 by mouth 4 it y of horphan 00:00: (four) [place] 6.25-15 00 times Medical mg/5 mL daily as Branch syrup needed for Cough. ondansetron 2021-07 Yes [id number] 4mg Take 1 Univers 4 mg 2-14 tablet by ity of disintegrat 00:00: mouth [place] ing tablet 00 every 8 Medica l (eight) Branch hours as needed for Nausea and Vomiting (N/V). nirmatrelvi 2021-07 Yes [id number] 3{tbl} Take 3 Univers r-ritonavir 2-14 tablets by it y of (PAXLOVID, 00:00: mouth in [place] EUA,) 300 00 the Medical mg (150 mg morning Branch x 2)-100 mg and 3 tablet tablets in the evening. promethazin 2021-07 Yes [id number] 5mL Take 5 mL Univers e-dextromet 2-14 by mouth 4 it y of horphan 00:00: (four) [place] 6.25-15 00 times Medical mg/5 mL daily as Branch syrup needed for Cough. ondansetron 2021-07 Yes [id number] 4mg Take 1 Univers 4 mg 2-14 tablet by ity of disintegrat 00:00: mouth [place] ing tablet 00 every 8 Medica l (eight) Branch hours as needed for Nausea and Vomiting (N/V). nirmatrelvi 2021-07 Yes [id number] 3{tbl} Take 3 Univers r-ritonavir 2-14 tablets by it y of (PAXLOVID, 00:00: mouth in [place] EUA,) 300 00 the Medical mg (150 mg morning Branch x 2)-100 mg and 3 tablet tablets in the evening. promethazin 2021-07 Yes [id number] 5mL Take 5 mL Univers e-dextromet 2-14 by mouth 4 it y of horphan 00:00: (four) [place] 6.25-15 00 times Medical mg/5 mL daily as Branch syrup needed for Cough. nirmatrelvi 2021-07- No [id number] 3{tbl} Take 3 Univers r-ritonavir 2-14 12-14 tablets by i ty of (PAXLOVID, 00:00: 00:00 mouth in [place] EUA,) 300 00 :00 the Medical mg (150 mg morning Branch x 2)-100 mg and 3 tablet tablets in the evening. benzonatate 2021-07- No [id number] 200mg Take 2 Univers 100 mg 2-14 [...] mg 05/07/22 at 0945, JOSE FENTanyl PF 2021-07- [...] n: Perioperat melvin Patient tamsulosin 2021-07 Yes [id number] .4mg Take 1 U nivers 0.4 mg 24 07-07 capsule by ity of hr capsule 00:00: mouth at [place] 00 bedtime. Medical Branch tamsulosin 2021-07- No [id number] .4mg Take 1 Univers 0.4 mg 24 [...] Branch Sat02/19/22 at 1030, JOSE NaCl 0.9% 2021- No [...] Branch 02/19/22 at 0930, JOSE methylPREDN Yes [id number] [facility] ity of (MEDROL, 00:00: SEE-INSTRU [place] TE,) 4 mg 00 CTIONS. Medica l tablets follow Branch package directions methylPREDN Yes [id number] [facility] mouth ity of (MEDROL, 00:00: SEE-INSTRU [place] TE,) 4 mg 00 CTIONS. Medica l tablets follow Branch package directions methylPREDN Yes [id number] Take by [facility] IS[facility]one 11-29 mouth ity of (MEDROL, 00:00: SEE-INSTRU [place] TE,) 4 mg 00 CTIONS. Medica l tablets follow Branch package directions methylPREDN 2- No [id number] [facility] 12-14 mouth ity of (MEDROL, 00:00: 00:00 [place]-INSTRU [place] TE,) 4 mg 00 :00 CTIONS. Medica l tablets follow Branch package directions amoxicillin 2- No [id number] 1{tbl} Take 1 [facility] -clavulanat 11-29 tablet by it y of e [id number] 00:00: 04:59 mouth 2 [place] mg per 00 :00 (two) Medical tablet times Branch daily for 7 days. codeine-gua 2021- No [id number] 5mL Take 5 mL [facility] ifenesin 11-29 by mouth ity of 10-100 mg/5 00:00: 04:59 every 6 [place] mL oral 00 :00 (six) Medical solution hours as Branch needed for Cough for up to 7 days. Indication s: acute pain estrogens, Yes Take by [facility] ers conjugated 08-29 mouth. ity of (PREMARIN [...] ORAL) 44 Medical Branch naproxen 2021-0 Yes [id number] 500mg Take 1 U nivers (NAPROSYN) 2-02 tablet by ity of 500 mg 00:00: mouth 2 [place] tablet 00 (two) Medical times Branch daily with meals. naproxen 2021-0 Yes [id number] 500mg Take 1 U nivers (NAPROSYN) 2-02 tablet by ity of 500 mg 00:00: mouth 2 [place] tablet 00 (two) Medical times Branch daily with meals. naproxen 2021-0 Yes [id number] 500mg Take 1 U nivers (NAPROSYN) 2-02 tablet by ity of 500 mg 00:00: mouth 2 [place] tablet 00 (two) Medical times Branch daily with meals. naproxen 2-0 Yes [id number] 500mg Take 1 U nivers (NAPROSYN) 2-02 tablet by ity of 500 mg 00:00: mouth 2 [place] tablet 00 (two) Medical times Branch daily with meals. naproxen 2021-0 Yes [id number] 500mg Take 1 U nivers (NAPROSYN) 2-02 tablet by ity of 500 mg 00:00: mouth 2 [place] tablet 00 (two) Medical times Branch daily with meals. naproxen 2021-0 Yes [id number] 500mg Take 1 U nivers (NAPROSYN) 2-02 tablet by ity of 500 mg 00:00: mouth 2 [place] tablet 00 (two) Medical times Branch daily with meals. naproxen 2021-0 Yes [id number] 500mg Take 1 U nivers (NAPROSYN) 2-02 tablet by ity of 500 mg 00:00: mouth 2 [place] tablet 00 (two) Medical times Branch daily with meals. naproxen 2021-0 Yes [id number] 500mg Take 1 U nivers (NAPROSYN) 2-02 tablet by ity of 500 mg 00:00: mouth 2 [place] tablet 00 (two) Medical times Branch daily with meals. naproxen 2021-0 Yes [id number] 500mg Take 1 U nivers (NAPROSYN) 2-02 tablet by ity of 500 mg 00:00: mouth 2 [place] tablet 00 (two) Medical times Branch daily with meals. naproxen 2021-0 Yes [id number] 500mg Take 1 U nivers (NAPROSYN) 2-02 tablet by ity of 500 mg 00:00: mouth 2 [place] tablet 00 (two) Medical times Branch daily with meals. naproxen 2021-0 Yes [id number] 500mg Take 1 U nivers (NAPROSYN) 2-02 tablet by ity of 500 mg 00:00: mouth 2 [place] tablet 00 (two) Medical times Branch daily with meals. naproxen 2-0 Yes [id number] 500mg Take 1 U nivers (NAPROSYN) 2-02 tablet by ity of 500 mg 00:00: mouth 2 [place] tablet 00 (two) Medical times Branch daily with meals. albuterol 2020-07 Yes [id number] 2{puff} Inhale 2 Univers 90 2-22 Puffs [...] Cough. Indication s: cough albuterol 2020-07 Yes [id number] 2{puff} Inhale 2 Univers 90 2-22 Puffs [...] Cough. Indication s: cough albuterol 2020-07 Yes [id number] 2{puff} Inhale 2 Univers 90 2-22 Puffs [...] Cough. Indication s: cough albuterol 2020-07 Yes [id number] 2{puff} Inhale 2 Univers 90 2-22 Puffs [...] Cough. Indication s: cough albuterol 2020-07 Yes [id number] 2{puff} Inhale 2 Univers 90 2-22 Puffs ity of mcg/actuati 00:00: every 6 [place] as on inhaler 00 (six) Medical hours as Branch needed for Wheezing or Bronchospa sm. albuterol 2020-07 Yes [id number] 2{puff} Inhale 2 Univers 90 2-22 Puffs ity of mcg/actuati 00:00: every 6 [place] as on inhaler 00 (six) Medical hours as Branch needed for Wheezing or Bronchospa sm. albuterol 2020-07 Yes [id number] 2{puff} Inhale 2 Univers 90 2-22 Puffs ity of mcg/actuati 00:00: every 6 [place] as on inhaler 00 (six) Medical hours as Branch needed for Wheezing or Bronchospa sm. albuterol 2020-07 Yes [id number] 2{puff} Inhale 2 Univers 90 2-22 Puffs ity of mcg/actuati 00:00: every 6 [place] as on inhaler 00 (six) Medical hours as Branch needed for Wheezing or Bronchospa sm. albuterol 2020-07 Yes [id number] 2{puff} Inhale 2 Univers 90 2-22 Puffs ity of mcg/actuati 00:00: every 6 [place] on inhaler 00 (six) Medical hours as Branch needed for Wheezing or Bronchospa sm. albuterol 2020-07 Yes [id number] 2{puff} Inhale 2 Univers 90 2-22 Puffs ity of mcg/actuati 00:00: every 6 [place] as on inhaler 00 (six) Medical hours as Branch needed for Wheezing or Bronchospa sm. albuterol 2020-07 Yes [id number] 2{puff} Inhale 2 Univers 90 2-22 Puffs ity of mcg/actuati 00:00: every 6 [place] as on inhaler 00 (six) Medical hours as Branch needed for Wheezing or Bronchospa sm. albuterol 2020-07 Yes [id number] 2{puff} Inhale 2 Univers 90 2-22 Puffs ity of mcg/actuati 00:00: every 6 [place] as on inhaler 00 (six) Medical hours as [place] needed for Wheezing or Bronchospa sm. codeine-gua 2020-072- No 10mL Take 10 mL Univers ifenesin 2-22 12-14 by mouth ity of 10-100 mg/5 00:00: 00:00 [place] 6 [place] oral 00 :00 (six) Medical solution hours as [place] needed for Cough. Indication s: cough levothyroxi 2020-07 Yes TAKE 1 Univ ers ne 137 mcg 2-16 TABLET BY ity of tablet 00:00: MOUTH [place] 00 EVERY DAY Medical IN THE [place] MORNING ON AN EMPTY STOMACH levothyroxi 2020-07 Yes TAKE 1 Univ ers ne 137 mcg 2-16 TABLET BY ity of tablet 00:00: MOUTH [place] 00 EVERY DAY Medical IN THE [place] MORNING ON AN EMPTY STOMACH levothyroxi 2020-07 Yes TAKE 1 Univ ers ne 137 mcg 2-16 TABLET BY ity of tablet 00:00: MOUTH [place] 00 EVERY DAY Medical IN THE [place] MORNING ON AN EMPTY STOMACH levothyroxi 2020-07 Yes TAKE 1 Univ ers ne 137 mcg 2-16 TABLET BY ity of tablet 00:00: MOUTH [place] 00 EVERY DAY Medical IN THE [place] MORNING ON AN EMPTY STOMACH levothyroxi 2020-07 Yes TAKE 1 Univ ers ne 137 mcg 2-16 TABLET BY ity of tablet 00:00: MOUTH [place] 00 EVERY DAY Medical IN THE [place] MORNING ON AN EMPTY STOMACH levothyroxi 2020-07 Yes TAKE 1 Univ ers ne 137 mcg 2-16 TABLET BY ity of tablet 00:00: MOUTH [place] 00 EVERY DAY Medical IN THE [place] MORNING ON AN EMPTY STOMACH levothyroxi 2020-07 Yes TAKE 1 Univ ers ne 137 mcg 2-16 TABLET BY ity of tablet 00:00: MOUTH [place] 00 EVERY DAY Medical IN THE [place] MORNING ON AN EMPTY STOMACH levothyroxi 2020-07 Yes TAKE 1 Univ ers ne 137 mcg 2-16 TABLET BY ity of tablet 00:00: MOUTH [place] 00 EVERY DAY Medical IN THE [place] MORNING ON AN EMPTY STOMACH levothyroxi 2020-07 Yes TAKE 1 Univ ers ne 137 mcg 2-16 TABLET BY ity of tablet 00:00: MOUTH [place] 00 EVERY DAY Medical IN THE [place] MORNING ON AN EMPTY STOMACH levothyroxi 2020-07 Yes TAKE 1 Univ ers ne 137 mcg 2-16 TABLET BY ity of tablet 00:00: MOUTH [place] 00 EVERY DAY Medical IN THE [place] MORNING ON AN EMPTY STOMACH levothyroxi 2020-07 Yes TAKE 1 Univ ers ne 137 mcg 2-16 TABLET BY ity of tablet 00:00: MOUTH [place] 00 EVERY DAY Medical IN THE [place] MORNING ON AN EMPTY STOMACH levothyroxi 2020-1 Yes TAKE 1 Univ ers ne 137 mcg 2-16 TABLET BY ity of tablet 00:00: [facility] EVERY DAY Medical IN [facility] MORNING ON AN EMPTY STOMACH acetaminoph acetaminoph 0 Yes [address] [facility] en 325 MG / en 325 MG / 8-26 L [facility] hydrocodone hydrocodone 00:00: [facility] bitartrate bitartrate 00 l 5 MG Oral 5 MG Oral (LUF/ LI Tablet Tablet V/SA) acetaminoph acetaminoph 0 Yes [address] [facility] en 325 MG / en 325 MG / 8-26 every 4 [facility] hydro[facility]codone [facility]:00: 6 hours as [facility] bitartrate bitartrate 00 needed. l 5 MG Oral 5 MG Oral (as needed (LUF/LI Tablet Tablet for pain) V/SA) acetaminoph acetaminoph 2020-0 Yes [address] [facility] en 325 MG / en 325 MG / 8-26 L [facility] hydrocodone hydrocodone 00:00: [facility] bitartrate bitartrate 00 l 5 MG Oral 5 MG Oral (LUF/ LI Tablet Tablet V/SA) acetaminoph acetaminoph 0 Yes [address] [facility] en 325 MG / en 325 MG / 8-26 every 4 [facility] hydrocodone hydrocodone 00:00: 6 hours as [facility] bitartrate bitartrate 00 needed. l 5 MG Oral 5 MG Oral (as needed (LUF/LI Tablet Tablet for pain) V/SA) acetaminoph acetaminoph 2020-0 Yes 1 Q5.00H [facility] [...] (PREMARIN 00:00: daily. [place] ORAL) 00 [facility] Premarin Premarin 2018-07 Yes Kaywin 1 tablet Common 0-23 [facility] 00:[facility]: - [facility] 00 [facility] Premarin Premarin 2018-07 No 1{table QD Premarin 1.25 MG 1.25 MG 0-23 t} 1.25 MG 00:00: 00 estrogens, 2018-07 Yes Take by Univ ers conjugated 0-23 mouth ity of (PREMARIN 00:00: daily. [place] ORAL) 00 MD Gian payton [facility] estrogens, 2018-07 Yes Take by Univ ers conjugated 0-23 mouth ity of (PREMARIN 00:00: daily. [place] ORAL) 00 MD Gian payton [facility] estrogens, 2018-07 Yes Take by Univ ers conjugated 0-23 mouth ity of (PREMARIN 00:00: daily. [place] ORAL) 00 MD Gian payton [facility] estrogens, 2018-07 Yes Take by Univ ers conjugated 0-23 mouth ity of (PREMARIN 00:00: daily. [place] ORAL) 00 MD Gian payton [facility] estrogens, 2018-07 Yes Take by Univ ers conjugated 0-23 mouth ity of (PREMARIN 00:00: daily. [place] ORAL) 00 MD Gian payton [facility] estrogens, 2018-07 Yes Take by Univ ers conjugated 0-23 mouth ity of (PREMARIN 00:00: daily. [place] ORAL) 00 MD Gian payton [facility] estrogens, 2018-07 Yes Take by Univ ers conjugated 0-23 mouth ity of (PREMARIN 00:00: daily. [place] ORAL) 00 MD Gian payton [facility] estrogens, 2018-07 Yes Take by Univ ers conjugated 0-23 mouth ity of (PREMARIN 00:00: daily. [place] ORAL) 00 MD Gian payton [facility] estrogens, 2018-07 Yes Take by Univ ers conjugated 0-23 mouth ity of (PREMARIN 00:00: daily. [place] ORAL) 00 MD Gian payton [facility] estrogens, 2018-07 Yes Take by Univ ers conjugated 0-23 mouth ity of (PREMARIN 00:00: daily. [place] ORAL) 00 MD Gian payton [facility] estrogens, 2018-07 Yes Take by Univ ers conjugated 0-23 mouth ity of (PREMARIN 00:00: daily. [place] ORAL) [facility] estrogens, 2018-07 Yes Take by Univ ers conjugated 0-23 mouth ity of (PREMARIN 00:00: daily. [place] ORAL) 00 [facility] estrogens, 2018-07 Yes Take by Univ ers conjugated 0-23 mouth ity of (PREMARIN 00:00: daily. [place] ORAL) [facility] tata [facility] estrogens, 2018-07 Yes Take by Univ ers conjugated 0-23 mouth ity of (PREMARIN 00:00: daily. [place] ORAL) [facility] estrogens, 2018-07 Yes Take by Univ ers conjugated 0-23 mouth ity of (PREMARIN 00:00: daily. [place] ORAL) [facility] estrogens, 2018-07 Yes Take by Univ ers conjugated 0-23 mouth ity of (PREMARIN 00:00: daily. [place] ORAL) [facility] estrogens, 2018-07 Yes Take by Univ ers conjugated 0-23 mouth ity of (PREMARIN 00:00: daily. [place] ORAL) 00 [facility] estrogens, 2018-07 Yes Take by Univ ers conjugated 0-23 mouth ity of (PREMARIN 00:00: daily. [place] ORAL) [facility] estrogens, 2018-07 Yes Take by Univ ers conjugated 0-23 mouth ity of (PREMARIN 00:00: daily. [place] ORAL) 00 [facility] estrogens, 2018-07 Yes Take by Univ ers conjugated 0-23 mouth ity of (PREMARIN 00:00: daily. [place] ORAL) 00 [facility] estrogens, 2018-07 Yes Take by Univ ers conjugated 0-23 mouth ity of (PREMARIN 00:00: daily. [place] ORAL) [facility] estrogens, 2018-07 Yes Take by Univ ers conjugated 0-23 mouth ity of (PREMARIN 00:00: daily. [place] ORAL) 00 [facility] Estradiol Estradiol 2018-07 Yes Kaywin 1 tablet Common 0-01 [facility] 00:00: - [facility] 00 [facility] citalopram 2017-0 Yes Univers (CeleXA) 40 9-10 ity of mg tablet 00:00: [place] [facility] Yes Univers (CeleXA) 40 9-10 ity of mg tablet [facility] citalopra 2018-0 Yes Univers (CeleXA) 40 9-10 ity of mg tablet 00:00: [facility] Yes Univers (CeleXA) 40 9-10 ity of mg tablet 00:00: [facility] [address] Yes Univers (CeleXA) 40 9-10 ity of mg tablet 00:00: [facility] Yes Univers (CeleXA) 40 9-10 ity of mg tablet 00:00: [facility] [address] Yes Univers (CeleXA) 40 9-10 ity of mg tablet 00:00: [facility] Yes Univers (CeleXA) 40 9-10 ity of mg tablet 00:00: [facility] [address] Yes Univers (CeleXA) 40 9-10 ity of mg tablet 00:00: [facility] [address] Yes Univers (CeleXA) 40 9-10 ity of mg tablet 00:[facility]: [facility] citalopra [address] Yes Univers (CeleXA) 40 9-10 ity of mg tablet 00:00: [facility] tata [facility] citalopra [address] Yes Univers (CeleXA) 40 9-10 ity of mg tablet 00:[facility]: [facility] citalopra [address] Yes Univers (CeleXA) 40 9-10 ity of mg tablet 00:00: [facility] 2018[facility] Yes Univers (CeleXA) 40 9-10 ity of mg tablet 00:00[facility] citalopram 2018-0 Yes Univers (CeleXA) 40 9-10 ity of mg tablet 00:00: MD Gian payton [facility] citalopra Yes Univers (CeleXA) 40 9-10 ity of mg tablet 00:00: MD Gian payton [facility] citalopra Yes Univers (CeleXA) 40 9-10 ity of mg tablet 00:00: MD Gian payton [facility] citalopra Yes Univers (CeleXA) 40 9-10 ity of mg tablet 00:00: MD Gian payton [facility] citalopram Yes Univers (CeleXA) 40 9-10 ity of mg tablet 00:00: MD Gian payton [facility] citalopra Yes Univers (CeleXA) 40 9-10 ity of mg tablet 00:00: MD Gian payton [facility] Yes Univers (CeleXA) 40 9-10 ity of mg tablet 00:00: MD Gian payton [facility] citalopra Yes Univers (CeleXA) 40 9-10 ity of mg tablet 00:00: MD Gian payton [facility] citalopra Yes Univers (CeleXA) 40 9-10 ity of mg tablet 00:00: MD Gian payton [facility] levothyroxi Yes Univer s ne 175 mcg 8-10 ity of cap 00:00: [facility] levothyroxi Yes Univer s ne 175 mcg 8-10 ity of cap 00:00: [facility] levothyroxi Yes Univer s ne 175 mcg 8-10 ity of cap 00:00: MD [facility] levothyroxi Yes Univer s ne 175 mcg 8-10 ity of cap 00:00: MD Gian payton [facility] levothyroxi Yes Univer s ne 175 mcg 8-10 ity of cap 00:00: MD Gian payton [facility] levothyroxi Yes Univer s ne 175 [...] of cap 00:00: [place] 00 [place] [facility] levothyroxi Yes Univer s ne 175 mcg 8-10 ity of cap 00:00: 00 [place] [facility] levothyroxi Yes Univer s ne 175 mcg 8-10 ity of cap 00:00: 00 [facility] zolpidem 0 Yes Univers (AMBIEN) 10 07-01 ity of mg tablet 00:00: [place] 00 [facility] zolpidem 0 Yes Univers (AMBIEN) 10 07-01 ity of mg tablet 00:00: [place] 00 [facility] zolpidem 0 Yes Univers (AMBIEN) 10 07-01 ity of mg tablet 00:00: [place] 00 MD Gian payton [facility] zolpidem 2006-0 Yes Univers (AMBIEN) 10 07-01 ity of mg tablet 00:00: [place] 00 MD Gian payton [facility] zolpidem 2006-0 Yes Univers (AMBIEN) 10 07-01 ity of mg tablet 00:00: [place] 00 [facility] zolpidem 2006-0 Yes Univers (AMBIEN) 10 07-01 ity of mg tablet 00:00: [place] 00 MD Gian payton [facility] zolpidem 2006-0 Yes Univers (AMBIEN) 10 07-01 ity of mg tablet 00:00: [place] 00 MD Gian payton [facility] zolpidem 2006-0 Yes Univers (AMBIEN) 10 07-01 ity of mg tablet 00:00: [place] 00 MD Gian payton [facility] zolpidem 2006-0 Yes Univers (AMBIEN) 10 07-01 ity of mg tablet 00:00: [place] 00 MD Gian payton [facility] zolpidem 2006-0 Yes Univers (AMBIEN) 10 07-01 ity of mg tablet 00:00: [place] 00 MD Gian payton [facility] zolpidem 2006-0 Yes Univers (AMBIEN) 10 07-01 ity of mg tablet 00:00: [place] 00 MD Gian payton [facility] zolpidem 2006-0 Yes Univers (AMBIEN) 10 07-01 ity of mg tablet 00:00: [place] 00 [facility] zolpidem 2007-0 Yes Univers (AMBIEN) 10 07-01 ity of mg tablet 00:00: [facility] zolpide 2006-0 Yes Univers (AMBIEN) 10 07-01 ity of mg tablet 00:00: 00 [facility] zolpide 2006-0 Yes Univers (AMBIEN) 10 07-01 ity of mg tablet 00:00: 00 [facility] zolpide 0 Yes Univers (AMBIEN) 10 07-01 ity of mg tablet 00:00: [facility] zolpide Yes Univers (AMBIEN) 10 07-01 ity of mg tablet 00:00: [facility] zolde 0 Yes Univers (AMBIEN) 10 07-01 ity of mg tablet 00:00: 00 [facility] zolpide 2006-0 Yes Univers (AMBIEN) 10 07-01 ity of mg tablet 00:00: 00 [facility] zolpide 2006-0 Yes Univers (AMBIEN) 10 07-01 ity of mg tablet 00:00: [place] [facility] zolpide 2006-0 Yes Univers (AMBIEN) 10 07-01 ity of mg tablet 00:00: [place] 00 [facility] zolpide 2006-0 Yes Univers (AMBIEN) 07-01 ity of mg tablet 00:00: [place] 00 [facility] zolpide 0 Yes Univers (AMBIEN) 10 07-01 ity of mg tablet 00:00: [place] 00 [facility] acetaminoph acetaminoph Yes [address] [facility] [...] C HI St conjugated conjugated Gutierrez es (FCI) 1.25 (FCI) 1.25 Mem oria MG Oral MG Oral [...] [facility] conjugated conjugated daily Olamide kes (FCI) 1.25 (FCI) 1.25 Mem oria MG Oral MG Oral l Tablet Tablet (LUF/LI V/SA) levothyroxi levothyroxi Yes 150ug 1xD orally [facility] ne daily [facility] (LUF/LI V/SA) acetaminoph acetaminoph Yes [address] [facility] [...] C [facility] conjugated conjugated Gutierrez es (FCI) 1.25 (FCI) 1.25 Mem oria MG Oral MG Oral [...] [facility] conjugated conjugated daily Olamide kes (FCI) 1.25 (FCI) 1.25 Mem oria MG Oral MG Oral l Tablet Tablet (LUF/LI V/SA) levothyroxi levothyroxi Yes 150ug 1xD orally [facility] ne ne daily [facility] (LUF/LI V/SA) acetaminoph acetaminoph Yes [address] [facility] [...] C [facility] conjugated conjugated Gutierrez es (FCI) 1.25 (FCI) 1.25 Mem oria MG Oral MG Oral [...] [facility] conjugated conjugated daily Olamide kes (FCI) 1.25 (FCI) 1.25 Mem oria MG Oral MG Oral l Tablet Tablet (LUF/LI V/SA) levothyroxi levothyroxi Yes 150ug 1xD orally [facility] ne ne daily [facility] (LUF/LI V/SA) Celexa Celexa Yes Kaywin 1 tablet Commo n [facility]iden [facility] Levothyroxi Levothyroxi Yes Kaywin 1 tablet Common ne Sodium ne Sodium Aiden on an Sp karla empty - [facility] stomach in [facility] Estradiol Estradiol Yes Kaywin 1 patch to Common [facility] Promethazin Promethazin No 1{table Promethazi e HCl 25 mg e HCl 25 mg t_as_ne ne HCl 25 eded} mg Estradiol Estradiol No 1{patch Estradiol 0.1 MG/24HR 0.1 MG/24HR _to_ski 0.1 n} MG/24HR Celexa 40 Celexa 40 No 1{table QD Celexa 40 MG MG t} MG Gantt Gantt No 1{table QID Gantt 7.5-325 MG 7.5-325 MG t_as_ne 7.5-325 MG [...] Sodium 150 MCG 150 MCG 150 MCG Gantt Gantt No 1{table QID Gantt 7.5-325 MG 7.5-325 MG t_as_ne 7.5-325 MG eded} Promethazin Promethazin No 1{table Promethazi e HCl 25 mg e HCl 25 mg t_as_ne ne HCl 25 eded} mg Estradiol Estradiol No 1{patch Estradiol 0.1 MG/24HR 0.1 MG/24HR _to_ski 0.1 n} MG/24HR Premarin Premarin No 1{table QD Premarin 1.25 MG 1.25 MG t} 1.25 MG Gantt Gantt No 1{table QID Gantt 7.5-325 MG 7.5-325 MG t_as_ne 7.5-325 MG [...] 1.25 MG 1.25 MG t} 1.25 MG Gantt Gantt No 1{table QID Gantt 7.5-325 MG 7.5-325 MG t_as_ne 7.5-325 MG eded} Levothyroxi Levothyroxi No QD Levothyrox ne Sodium ne Sodium ine Sodium 150 MCG 150 MCG 150 MCG CeleXA 40 CeleXA 40 No 1{table QD CeleXA 40 MG MG t} MG Immunizations Ordered Filled Date Status Comments Source Immunization Name Immunization Name influenza, high influenza, high 2015-04-[address] [facility] dose seasonal, dose seasonal, 00:00:00 [facility] al preservative-free preservative-free (LUF/DAVID/SA) influenza, high influenza, high 2015-04-[address] [facility] dose seasonal, dose seasonal, 00:00:00 [facility] al preservative-free preservative-free (LUF/DAVID/SA) influenza, high influenza, high 2015-04-[address] [facility] dose seasonal, dose seasonal, 00:00:00 [facility] al preservative-free preservative-free (LUF/DAVID/SA) Influenza, 2011-03-30 Completed University of Unspecified 00:00:00 [place] [facility] Tdap 2011-03-30 Completed University of 00:00:00 [facility] Influenza, 2011-03-30 Completed University of Unspecified 00:00:00 [facility] Tdap 2011-03-30 Completed University of 00:00:00 [facility] Influenza, 2011-03-30 Completed University of Unspecified 00:00:00 [facility] Tdap 2011-03-30 Completed University of 00:00:00 [facility] Influenza, 2011-03-30 Completed [facility] Unspecified 00[facility]00[facility]00 [facility] 2011-03-30 Completed University [facility] 00:00:00 [place] [facility] Influenza, 2011-03-30 Completed University of Unspecified 00:00:00 [place] [facility] Tdap 2011-03-30 Completed University of 00:00:00 [place] [facility] Influenza, 2011-03-30 Completed University of Unspecified 00:00:00 [place] [facility] Tdap 2011-03-30 Completed University of 00:00:00 [place] [facility] Influenza, 2011-03-30 Completed University of Unspecified 00:00:00 [place] [facility] Tdap 2011-03-30 Completed University of 00:00:00 [place] [facility] Influenza, 2011-03-30 Completed University of Unspecified 00:00:00 [place] [facility] Tdap 2011-03-30 Completed University of 00:00:00 [place] [facility] Influenza, 2011-03-30 Completed University of Unspecified 00:00:00 [place] [facility] Tdap 2011-03-30 Completed University of 00:00:00 [place] [facility] Influenza, 2011-03-30 Completed University of Unspecified 00:00:00 [place] [facility] Tdap 2011-03-30 Completed University of 00:00:00 [place] [facility] Influenza, 2011-03-30 Completed University of Unspecified 00:00:00 [place] [facility] Tdap 2011-03-30 Completed University of 00:00:00 [place] [facility] Influenza, 2011-03-30 Completed University of Unspecified 00:00:00 [place] [facility] Tdap 2011-03-30 Completed University of 00:00:00 [place] [facility] Influenza, 2011-03-30 Completed University of Unspecified 00:00:00 [place] [facility] Tdap 2011-03-30 Completed University of 00:00:00 [place] [facility] Influenza, 2011-03-30 Completed University of Unspecified 00:00:00 [place] [facility] Tdap 2011-03-30 Completed University of 00:00:00 [place] [facility] Influenza, 2011-03-30 Completed University of Unspecified 00:00:00 [place] [facility] Tdap 2011-03-30 Completed University of 00:00:00 [place] [facility] Influenza, 2011-03-30 Completed University of Unspecified 00:00:00 [place] [facility] Tdap 2011-03-30 Completed University of 00:00:00 [place] [facility] Influenza, 2011-03-30 Completed University of Unspecified 00:00:00 [place] [facility] Tdap 2011-03-30 Completed University of 00:00:00 [place] [facility] Influenza, 2011-03-30 Completed University of Unspecified 00:00:00 [place] [facility] Tdap 2011-03-30 Completed University of 00:00:00 [place] [facility] Influenza, 2011-03-30 Completed University of Unspecified 00:00:00 [place] [facility] Tdap 2011-03-30 Completed University of 00:00:00 [facility] Influenza, 2011-03-30 Completed University of Unspecified 00:00:00 [place] [facility] Tdap 2011-03-30 Completed University of 00:00:00 [facility] Influenza, 2011-03-30 Completed University of Unspecified 00:00:00 [facility] Tdap 2011-03-30 Completed University of 00:00:00 [facility] Influenza, 2011-03-30 Completed University of Unspecified 00:00:00 [facility] Tdap 2011-03-30 Completed University of 00:00:00 [facility] Influenza (IM) 2009-04-05 Completed University of Preservative Free 00:00:00 [facility] Influenza (IM) 2009-04-05 Completed University of Preservative Free 00:00:00 [facility] Influenza (IM) 2009-04-05 Completed University of Preservative Free 00:00:00 [facility] Influenza (IM) 2009-04-05 Completed University of Preservative Free 00:00:00 [facility] Influenza (IM) 2009-04-05 Completed University of Preservative Free 00:00:00 [place] [facility] Influenza (IM) 2009-04-05 Completed University of Preservative Free 00:00:00 [facility] Influenza (IM) 2009-04-05 Completed University of Preservative Free 00:00:00 [facility] Influenza (IM) 2009-04-05 Completed University of Preservative Free 00:00:00 [facility] Influenza (IM) 2009-04-05 Completed University of Preservative Free 00:00:00 [facility] Influenza (IM) 2009-04-05 Completed University of Preservative Free 00:00:00 [facility] Influenza (IM) 2009-04-05 Completed University of Preservative Free 00:00:00 [facility] Influenza (IM) 2009-04-05 Completed University of Preservative Free 00:00:00 [facility] Influenza (IM) 2009-04-05 Completed University of Preservative Free 00:00:00 [facility] Influenza (IM) 2009-04-05 Completed University of Preservative Free 00:00:00 [facility] Influenza (IM) 2009-04-05 Completed University of Preservative Free 00:00:00 [facility] Influenza (IM) 2009-04-05 Completed University of Preservative Free 00:00:00 [facility] Influenza (IM) 2009-04-05 Completed University of Preservative Free 00:00:00 [facility] Influenza (IM) 2009-04-05 Completed University of Preservative Free 00:00:00 [facility] [facility] Influ[facility] (IM) 2009-04-05 Completed [facility] Preservative Free 00:00:00 [facility] Influenza (IM) 2009-04-05 Completed [facility] Preserv[facility] Free 00:00:00 [facility] Influenza (IM) 2009-04-05 Completed [facility] Preserv[facility] Free 00:00:00 [facility] Influenza (IM) 2009-04-05 Completed [facility] Preservative Free 00:00:00 [facility] Influenza, Unknown Completed [facility] [place] [facility] [place] Influenza (IM) Unknown Completed [facility] Preservative Free [facility] [place] Tdap Unknown Completed [facility] Vital Signs Vital Name Observation Time Observation Value Comments Source Systolic blood 2023-03-19 04:50:00 149 mm[Hg] Univer sity of pressure [facility] Diastolic blood 2023-03-19 04:50:00 102 mm[Hg] Unive rsity of pressure [facility] Heart rate 2023-03-19 04:50:00 81 /min [facility]i ty of [facility] Respiratory rate 2023-03-19 04:50:00 15 /min [facility] Oxygen saturation in 2023-03-19 04:50:00 96 /min [facility] Arterial blood by [facility] Pulse oximetry Branch Body temperature 2023-03-19 04:06:00 37.33 Ericka [facility] ersity of [facility] Body height 2023-03-19 04:06:00 162.6 cm [facility] [place] [facility] [place] Body weight 2023-03-19 04:06:[address] [facility] BMI 2023-03-19 04:06:00 39.48 kg/m2 Universi ty of [facility] Height 2023-03-02 23:36:00 162.56 CM Weight 2023-03-02 23:36:00 99.9 KG Systolic blood 2022-12-25 03:40:00 152 mm[Hg] Univer sity of [facility] Diastolic blood 2022-12-25 03:40:00 97 mm[Hg] Unive rsity of pressure [facility] Heart rate 2022-12-25 03:40:00 95 /min [facility]i ty of [facility] Body temperature 2022-12-25 03:40:00 37.28 Ericka Univ [facility]ity of [facility] Respiratory rate 2022-12-25 03:40:00 18 /min Univ ersity of [facility] Body height 2022-12-25 03:40:00 162.6 cm [facility] [place] [facility] [place] Body weight 2022-12-25 03:40:[address] [facility] BMI 2022-12-25 03:40:00 41.20 kg/m2 [facility] [place] [facility] Oxygen saturation in 2022-12-25 03:40:00 95 /min [facility] of Arterial blood by [facility] felipa Pulse oximetry Branch Systolic blood 2022-12-17 00:00:00 131 mm[Hg] [facility]iver [facility]ity of [facility] Diastolic blood 2022-12-17 00:00:00 88 mm[Hg] Unive rsity of pressure [facility] Heart rate 2022-12-17 00:00:00 69 /min [facility] Respiratory rate 2022-12-17 00:00:00 15 /min [facility] Oxygen saturation in 2022-12-17 00:00:00 100 /min [facility] of Arterial blood by [facility] Pulse oximetry Branch Body temperature 2022-12-16 22:02:00 37.28 Ericka [facility] [place] [facility] Systolic blood 2022-11-21 06:43:00 132 mm[Hg] Univer [facility]ity of pressure [facility] Diastolic blood 2022-11-21 06:43:00 74 mm[Hg] Unive rsity of pressure [facility] Heart rate 2022-11-21 06:43:00 76 /min [facility] Body temperature 2022-11-21 06:43:00 36.22 Ericka [facility] Oxygen saturation in 2022-11-21 06:43:00 99 /min [facility] of Arterial blood by [facility] Pulse oximetry Branch Respiratory rate 2022-11-21 05:12:00 21 /min Univ [facility] Body height 2022-11-21 02:40:00 162.6 cm [facility] Body weight 2022-11-21 02:40:00 104.327 kg [facility] BMI 2022-11-21 02:40:00 39.48 kg/m2 [facility] [place] [facility] Systolic blood 2022-10-26 05:15:00 119 mm[Hg] Univer [facility]ity of pressure [facility] Diastolic blood 2022-10-26 05:15:00 52 mm[Hg] Unive rsity of pressure [facility] Heart rate 2022-10-26 05:15:00 84 /min [facility] Respiratory rate 2022-10-26 05:15:00 22 /min [facility] [place] [facility] Oxygen saturation in 2022-10-26 05:15:00 98 /min [facility] of Arterial blood by [facility] Pulse oximetry Branch Body temperature 2022-10-26 03:39:00 37.22 Ericka [facility] [place] [facility] Body height 2022-10-26 03:39:00 162.6 cm [facility] [place] [facility] Body weight 2022-10-26 03:39:00 113.399 kg [facility] [place] [facility] BMI 2022-10-26 03:39:00 42.91 kg/m2 [facility] [place] [facility] Systolic blood 2022-10-03 07:08:00 146 mm[Hg] Univer sity of pressure [facility] Diastolic blood 2022-10-03 07:08:00 91 mm[Hg] Unive rsity of pressure [facility] Heart rate 2022-10-03 07:08:00 81 /min [facility] [place] [facility] Respiratory rate 2022-10-03 07:08:00 16 /min [facility] [place] [facility] Oxygen saturation in 2022-10-03 07:08:00 98 /min [facility] of Arterial blood by [facility] Pulse oximetry Branch Body temperature 2022-10-03 03:31:00 37.22 Ericka [facility] [place] [facility] Body height 2022-10-03 03:31:00 162.6 cm [facility] [place] [facility] Body weight 2022-10-03 03:31:00 108.863 kg [facility] [place] [facility] BMI 2022-10-03 03:31:00 41.20 kg/m2 [facility] [place] [facility] Systolic blood 2022-06-13 23:28:00 132 mm[Hg] Univer sity of pressure [place] [facility] Diastolic blood 2022-06-13 23:28:00 83 mm[Hg] Unive rsity of pressure [place] [facility] Heart rate 2022-06-13 23:28:00 107 /min [facility] [place] [facility] Body temperature 2022-06-13 23:28:00 37.17 Ericka [facility] [place] [facility] Respiratory rate 2022-06-13 23:28:00 16 /min Univ [facility] [place] [facility] Body height 2022-06-13 23:28:00 162.6 cm [facility] [place] [facility] Body weight 2022-06-13 23:28:00 102.15 kg [facility] [place] [facility] BMI 2022-06-13 23:28:00 38.66 kg/m2 [facility] [place] [facility] Oxygen saturation in 2022-06-13 23:28:00 96 /min [facility] of Arterial blood by [facility] Pulse oximetry Branch Systolic blood 2022-05-07 14:46:22 138 mm[Hg] Univer sity of pressure [place] [facility] Diastolic blood 2022-05-07 14:46:22 88 mm[Hg] Unive rsity of pressure [place] [facility] Heart rate 2022-05-07 14:46:22 89 /min [facility] [place] [facility] Respiratory rate 2022-05-07 14:46:22 20 /min [facility] [place] [facility] Oxygen saturation in 2022-05-07 14:46:22 98 /min [facility] of Arterial blood by [facility] Pulse oximetry Branch Body temperature 2022-05-07 14:07:33 37 Ericka Univ [facility] [place] [facility] Body height 2022-05-07 13:56:00 162.6 cm [facility] [place] [facility] Body weight 2022-05-07 13:56:00 108.863 kg [facility] [place] [facility] BMI 2022-05-07 13:56:00 41.20 kg/m2 [facility] [place] [facility] Systolic blood 2022-02-19 14:13:00 156 mm[Hg] Univer sity of pressure [facility] Diastolic blood 2022-02-19 14:13:00 94 mm[Hg] Unive rsity of pressure [facility] Heart rate 2022-02-19 14:13:00 111 /min [facility] [place] [facility] Body temperature 2022-02-19 14:13:00 37.11 Ericka [facility] [place] [facility] Respiratory rate 2022-02-19 14:13:00 22 /min [facility] [place] [facility] Body height 2022-02-19 14:13:00 162.6 cm [facility] [place] [facility] Body weight 2022-02-19 14:13:00 104.327 kg [facility] [place] [facility] BMI 2022-02-19 14:13:00 39.48 kg/m2 [facility]i ty of [facility] Oxygen saturation in 2022-02-19 14:13:00 99 /min [facility] of Arterial blood by [facility] Pulse oximetry Branch Systolic blood 2021-11-29 22:40:00 116 mm[Hg] Univer sity of pressure [facility] Diastolic blood 2021-11-29 22:40:00 85 mm[Hg] Unive rsity of pressure [facility] Heart rate 2021-11-29 22:40:00 87 /min Universi ty of [facility] Body temperature 2021-11-29 22:40:00 37.28 Ericka Univ ersity of [facility] Respiratory rate 2021-11-29 22:40:00 16 /min Univ ersity of [facility] Body height 2021-11-29 22:40:00 162.[address] [facility] Body weight 2021-11-29 22:40:00 103[address] [facility] BMI 2021-11-29 22:40:00 39.31 kg/m2 Universi ty of [facility] Oxygen saturation in 2021-11-29 22:40:00 98 /min University of Arterial blood by [facility] Pulse oximetry Branch Height 2021-04-23 00:58:00 162.56 [...] 165.1 CM Weight 2019-11-24 00:49:00 103 KG Pulse Rate 2023-03-03 03:33:00 87 /min [facility] (LUF/DAVID/SA) O2% BldC Oximetry 2023-03-03 03:33:00 98 % [facility] (LUF/DAVID/SA) BP Systolic 2023-03-03 03:16:00 154 mm[Hg] [facility] (LUF/DAVID/SA) BP Diastolic 2023-03-03 03:16:00 89 mm[Hg] [facility] (LUF/DAVID/SA) Body Temperature 2023-03-02 23:36:00 98.7 [degF] [facility] (LUF/DAVID/SA) Respiratory Rate 2023-03-02 23:36:00 16 /min [facility] (LUF/DAVID/SA) Height 2023-03-02 23:36:00 64 [in_i] [facility] (LUF/DAVID/SA) Weight 2023-03-02 23:36:00 99.9 kg [facility] (LUF/DAVID/SA) BMI (Body Mass 2023-03-02 23:36:00 38 kg/m2 [facility] (F/DAVID/SA) Systolic blood 2021-10-26 15:16:33 119 mm[Hg] Univer sity of pressure Jeffrey Chan [facility] Diastolic blood 2021-10-26 15:16:33 87 mm[Hg] Unive rsity of pressure Jeffrey Chan [facility] Heart rate 2021-10-26 15:16:33 92 /min [facility] Respiratory rate 2021-10-26 15:16:33 16 /min [facility] Oxygen saturation in 2021-10-26 15:16:33 98 /min [facility] blood by Jeffrey muñoz Pulse oximetry [facility] Body Temperature 2021-04-23 00:58:00 97.8 [degF] [facility] (LUF/DAVID/SA) Pulse Rate 2021-04-23 00:58:00 116 /min [facility] (LUF/DAVID/SA) Respiratory Rate 2021-04-23 00:58:00 18 /min [facility] (LUF/DAVID/SA) O2% BldC Oximetry 2021-04-23 00:58:00 99 % [facility] (LUF/DAVID/SA) BP Systolic 2021-04-23 00:58:00 111 mm[Hg] [facility] (LUF/DAVID/SA) BP Diastolic 2021-04-23 00:58:00 77 mm[Hg] [facility] (LUF/DAVID/SA) Height 2021-04-23 00:58:00 64 [in_i] [facility] (F/DAVID/SA) Weight 2021-04-23 00:58:00 105.1 kg [facility] (LUF/DAVID/SA) BMI (Body Mass 2021-04-23 00:58:00 40 kg/m2 [facility] (LUF/DAVID/SA) Body Temperature 2021-03-24 10:53:00 98.6 [degF] [facility] (LUF/DAVID/SA) Pulse Rate 2021-03-24 10:53:00 87 /min [facility] (LUF/DAVID/SA) Respiratory Rate 2021-03-24 10:53:00 18 /min [facility] (LUF/DAVID/SA) O2% BldC Oximetry 2021-03-24 10:53:00 97 % [facility] (LUF/DAVID/SA) BP Systolic 2021-03-24 10:53:00 120 mm[Hg] [facility] (LUF/DAVID/SA) BP Diastolic 2021-03-24 10:53:00 86 mm[Hg] [facility] (LUF/DAVID/SA) Height 2021-03-24 10:53:00 64 [in_i] [facility] (LUF/DAVID/SA) Weight 2021-03-24 10:53:00 105 kg [facility] (LUF/DAVID/SA) BMI (Body Mass 2021-03-24 10:53:00 40 kg/m2 [facility] Index) [facility] (LUF/DAVID/SA) Body Temperature 2021-03-10 10:55:00 98.4 [degF] [facility] (LUF/DAVID/SA) Pulse Rate 2021-03-10 10:55:00 85 /min [facility] (LUF/DAVID/SA) Respiratory Rate 2021-03-10 10:55:00 20 /min [facility] (LUF/DAVID/SA) O2% BldC Oximetry 2021-03-10 10:55:00 100 % [facility] (LUF/DAVID/SA) BP Systolic 2021-03-10 10:55:00 140 mm[Hg] [facility] (LUF/DAVID/SA) BP Diastolic 2021-03-10 10:55:00 98 mm[Hg] [facility] (LUF/ADVID/SA) Height 2021-03-10 10:55:00 64 [in_i] [facility] (LUF/DAVID/SA) Weight 2021-03-10 10:55:00 105.2 kg [facility] (LUF/DAVID/SA) BMI (Body Mass 2021-03-10 10:55:00 40 kg/m2 [facility] Index) [facility] (LUF/DAVID/SA) Pulse Rate 2021-02-23 12:32:00 67 /min [facility] (LUF/DAVID/SA) O2% BldC Oximetry 2021-02-23 12:32:00 98 % [facility] (LUF/DAVID/SA) BP Systolic 2021-02-23 12:32:00 112 mm[Hg] [facility] (LUF/DAVID/SA) BP Diastolic 2021-02-23 12:32:00 70 mm[Hg] [facility] (LUF/DAVID/SA) Heart Rate 2021-02-23 11:16:00 64 /min [facility] (LUF/DAVID/SA) Respiratory Rate 2021-02-23 11:16:00 14 /min [facility] (LUF/DAVID/SA) Body Temperature 2021-02-23 08:24:00 98.1 [degF] [facility] (LUF/DAVID/SA) Height 2021-02-23 08:24:00 64 [in_i] [facility] (F/DAVID/SA) Weight 2021-02-23 08:24:00 110 kg [facility] (LUF/DAVID/SA) BMI (Body Mass 2021-02-23 08:24:00 41.9 kg/m2 [facility] (LUF/DAVID/SA) Heart Rate 2021-01-10 01:46:00 93 /min [facility] (LUF/DAVID/SA) Pulse Rate 2021-01-10 01:46:00 95 /min [facility] (LUF/DAVID/SA) Respiratory Rate 2021-01-10 01:46:00 16 /min [facility] (F/DAVID/SA) O2% BldC Oximetry 2021-01-10 01:46:00 97 % [facility] (LUF/DAVID/SA) BP Systolic 2021-01-10 01:46:00 103 mm[Hg] [facility] (LUF/DAVID/SA) BP Diastolic 2021-01-10 01:46:00 71 mm[Hg] [facility] (F/DAVID/SA) Weight 2021-01-10 00:53:00 102 kg [facility] (LUF/DAVID/SA) Body Temperature 2021-01-10 00:47:00 98.6 [degF] [facility] (LUF/DAVID/SA) Pulse Rate 2020-12-12 14:20:00 87 /min [facility] (LUF/DAVID/SA) O2% BldC Oximetry 2020-12-12 14:20:00 98 % [facility] (LUF/DAVID/SA) BP Systolic 2020-12-12 14:20:00 128 mm[Hg] [facility] (LUF/DAVID/SA) BP Diastolic 2020-12-12 14:20:00 86 mm[Hg] [facility] (LUF/DAVID/SA) Body Temperature 2020-12-12 12:39:00 98.9 [degF] [facility] (LUF/DAVID/SA) Respiratory Rate 2020-12-12 12:39:00 20 /min [facility] (LUF/DAVID/SA) Weight 2020-12-12 12:39:00 102 kg [facility] (LUF/DAVID/SA) Body Temperature 2020-12-08 10:27:00 98.6 [degF] [facility] (LUF/DAVID/SA) Pulse Rate 2020-12-08 10:27:00 79 /min [facility] (LUF/DAVID/SA) Respiratory Rate 2020-12-08 10:27:00 16 /min [facility] (LUF/DAVID/SA) O2% BldC Oximetry 2020-12-08 10:27:00 99 % [facility] (LUF/DAVID/SA) BP Systolic 2020-12-08 10:27:00 111 mm[Hg] [facility] (LUF/DAVID/SA) BP Diastolic 2020-12-08 10:27:00 57 mm[Hg] [facility] (LUF/DAVID/SA) Weight 2020-12-08 10:27:00 103 kg [facility] (LUF/DAVID/SA) Body Temperature 2020-11-25 00:27:00 97.9 [degF] [facility] (LUF/DAVID/SA) Pulse Rate 2020-11-25 00:27:00 82 /min [facility] (LUF/DAVID/SA) Respiratory Rate 2020-11-25 00:27:00 17 /min [facility] (LUF/DAVID/SA) O2% BldC Oximetry 2020-11-25 00:27:00 98 % [facility] (LUF/DAVID/SA) BP Systolic 2020-11-25 00:27:00 109 mm[Hg] [facility] (LUF/DAVID/SA) BP Diastolic 2020-11-25 00:27:00 62 mm[Hg] [facility] (LUF/DAVID/SA) Heart Rate 2020-11-21 09:30:00 75 /min [facility] (LUF/DAVID/SA) Respiratory Rate 2020-11-21 09:30:00 14 /min [facility] (LUF/DAVID/SA) BP Systolic 2020-11-21 09:30:00 120 mm[Hg] [facility] (LUF/DAVID/SA) BP Diastolic 2020-11-21 09:30:00 76 mm[Hg] [facility] (LUF/DAVID/SA) Body Temperature 2020-11-21 07:15:00 98.1 [degF] [facility] (LUF/DAVID/SA) Pulse Rate 2020-11-21 07:15:00 103 /min [facility] (F/DAVID/SA) O2% BldC Oximetry 2020-11-21 07:15:00 100 % [facility] (LUF/DAVID/SA) Height 2020-11-21 07:15:00 64 [in_i] [facility] (F/DAVID/SA) Weight 2020-11-21 07:15:00 103.1 kg [facility] (LUF/DAVID/SA) BMI (Body Mass 2020-11-21 07:15:00 39.2 kg/m2 [facility] (LUF/DAVID/SA) Heart Rate 2020-11-14 13:30:00 69 /min [facility] (LUF/DAVID/SA) Pulse Rate 2020-11-14 13:30:00 70 /min [facility] (LUF/DAVID/SA) Respiratory Rate 2020-11-14 13:30:00 10 /min [facility] (LUF/DAVID/SA) O2% BldC Oximetry 2020-11-14 13:30:00 96 % [facility] (LUF/DAVID/SA) BP Systolic 2020-11-14 13:30:00 103 mm[Hg] [facility] (LUF/DAVID/SA) BP Diastolic 2020-11-14 13:30:00 77 mm[Hg] [facility] (F/DAVID/SA) Body Temperature 2020-11-14 09:47:00 97.4 [degF] [facility] (F/DAVID/SA) Weight 2020-11-14 09:47:00 103 kg [facility] (F/DAVID/SA) Body Temperature 2020-11-08 08:32:00 98.1 [degF] [facility] (F/DAVID/SA) Pulse Rate 2020-11-08 08:32:00 82 /min [facility] ([facility]/DAVID/SA) Respiratory Rate 2020-11-08 08:32:00 20 /min [facility] (F/DAVID/SA) O2% BldC Oximetry 2020-11-08 08:32:00 100 % [facility] (F/DAVID/SA) BP Systolic 2020-11-08 08:32:00 129 mm[Hg] [facility] (F/DAVID/SA) BP Diastolic 2020-11-08 08:32:00 72 mm[Hg] [facility] ([facility]/DAVID/SA) Height 2020-11-08 08:32:00 64 [in_i] [facility] (F/DAVID/SA) Weight 2020-11-08 08:32:00 103.1 kg [facility] (F/DAVID/SA) BMI (Body Mass 2020-11-08 08:32:00 39.2 kg/m2 [facility] (F/DAVID/SA) Body Temperature 2020-11-01 00:58:00 98.7 [degF] [facility] (F/DAVID/SA) Pulse Rate 2020-11-01 00:58:00 104 /min [facility] (LUF/DAVID/SA) Respiratory Rate 2020-11-01 00:58:00 20 /min [facility] (LUF/DAVID/SA) O2% BldC Oximetry 2020-11-01 00:58:00 99 % [facility] (LUF/DAVID/SA) BP Systolic 2020-11-01 00:58:00 133 mm[Hg] [facility] (LUF/DAVID/SA) BP Diastolic 2020-11-01 00:58:00 101 mm[Hg] [facility] (LUF/DAVID/SA) Height 2020-11-01 00:53:00 65 [in_i] [facility] (F/DAVID/SA) Weight 2020-11-01 00:53:00 103 kg [facility] (LUF/DAVID/SA) BMI (Body Mass 2020-11-01 00:53:00 37.8 kg/m2 [facility] (LUF/DAVID/SA) Body Temperature 2020-10-04 23:51:00 98 [degF] [facility] (LUF/DAVID/SA) Pulse Rate 2020-10-04 23:51:00 96 /min [facility] (LUF/DAVID/SA) Respiratory Rate 2020-10-04 23:51:00 20 /min [facility] (LUF/DAVID/SA) O2% BldC Oximetry 2020-10-04 23:51:00 98 % [facility] (LUF/DAVID/SA) BP Systolic 2020-10-04 23:51:00 125 mm[Hg] [facility] (LUF/DAVID/SA) BP Diastolic 2020-10-04 23:51:00 73 mm[Hg] [facility] (F/DAVID/SA) Height 2020-10-04 23:47:00 65 [in_i] [facility] (LUF/DAVID/SA) Weight 2020-10-04 23:47:00 102.6 kg [facility] (F/DAVID/SA) BMI (Body Mass 2020-10-04 23:47:00 37.6 kg/m2 [facility]) [facility] (LUF/DAVID/SA) Body Temperature 2020-09-18 01:44:00 98.3 [degF] [facility] (LUF/DAVID/SA) Pulse Rate 2020-09-18 01:44:00 116 /min [facility] (LUF/DAVID/SA) Respiratory Rate 2020-09-18 01:44:00 20 /min [facility] (LUF/DAVID/SA) O2% BldC Oximetry 2020-09-18 01:44:00 99 % [facility] (LUF/DAVID/SA) BP Systolic 2020-09-18 01:44:00 127 mm[Hg] [facility] (LUF/DAVID/SA) BP Diastolic 2020-09-18 01:44:00 83 mm[Hg] [facility] (LUF/DAVID/SA) Height 2020-09-18 01:40:00 64 [in_i] [facility] (LUF/DAVID/SA) Weight 2020-09-18 01:40:00 102.8 kg [facility] (LUF/DAVID/SA) BMI (Body Mass 2020-09-18 01:40:00 39.1 kg/m2 [facility] (LUF/DAVID/SA) Pulse Rate 2020-09-12 02:16:00 88 /min [facility] (LUF/DAVID/SA) O2% BldC Oximetry 2020-09-12 02:16:00 98 % [facility] (LUF/DAVDI/SA) BP Systolic 2020-09-12 02:16:00 113 mm[Hg] [facility] (LUF/DAVID/SA) BP Diastolic 2020-09-12 02:16:00 64 mm[Hg] [facility] (F/DAVID/SA) Body Temperature 2020-09-12 00:56:00 97.9 [degF] [facility] (F/DAVID/SA) Respiratory Rate 2020-09-12 00:56:00 18 /min [facility] (F/DAVID/SA) Height 2020-09-12 00:50:00 65 [in_i] [facility] (LUF/DAVID/SA) Weight 2020-09-12 00:50:00 104.5 kg [facility] (LUF/DAVID/SA) BMI (Body Mass 2020-09-12 00:50:00 38.3 kg/m2 [facility] Index) [facility] (LUF/DAVID/SA) Pulse Rate 2020-08-22 03:16:00 100 /min [facility] (LUF/DAVID/SA) O2% BldC Oximetry 2020-08-22 03:16:00 95 % [facility] (F/DAVID/SA) BP Systolic 2020-08-22 03:16:00 129 mm[Hg] [facility] (LUF/DAVID/SA) BP Diastolic 2020-08-22 03:16:00 88 mm[Hg] [facility] (LUF/DAVID/SA) Body Temperature 2020-08-22 01:35:00 98.4 [degF] [facility] (F/DAVID/SA) Respiratory Rate 2020-08-22 01:35:00 20 /min [facility] (F/DAVID/SA) Height 2020-08-22 01:35:00 64 [in_i] [facility] (LUF/DAVID/SA) Weight 2020-08-22 01:35:00 102 kg [facility] (F/DAVID/SA) BMI (Body Mass 2020-08-22 01:35:00 38.8 kg/m2 [facility] Index) [facility] (LUF/DAVID/SA) Pulse Rate 2020-08-06 03:31:00 83 /min [facility] (LUF/DAVID/SA) O2% BldC Oximetry 2020-08-06 03:31:00 96 % [facility] (F/DAVID/SA) BP Systolic 2020-08-06 03:31:00 127 mm[Hg] [facility] (LUF/DAVID/SA) BP Diastolic 2020-08-06 03:31:00 82 mm[Hg] [facility] (F/DAVID/SA) Body Temperature 2020-08-06 01:45:00 98 [degF] [facility] (LUF/DAVID/SA) Respiratory Rate 2020-08-06 01:45:00 20 /min [facility] (LUF/DAVID/SA) Height 2020-08-06 01:39:00 66 [in_i] [facility] (LUF/DAVID/SA) Weight 2020-08-06 01:39:00 104.2 kg [facility] (LUF/DAVID/SA) BMI (Body Mass 2020-08-06 01:39:00 37.3 kg/m2 [facility] (LUF/DAVID/SA) Pulse Rate 2020-07-19 11:16:00 67 /min [facility] (LUF/DAVID/SA) O2% BldC Oximetry 2020-07-19 11:16:00 94 % [facility] (LUF/DAVID/SA) BP Systolic 2020-07-19 11:16:00 101 mm[Hg] [facility] (LUF/DAVID/SA) BP Diastolic 2020-07-19 11:16:00 63 mm[Hg] [facility] (LUF/DAVID/SA) Body Temperature 2020-07-19 07:50:00 98 [degF] [facility] (LUF/DAVID/SA) Respiratory Rate 2020-07-19 07:50:00 18 /min [facility] (F/DAVID/SA) Weight 2020-07-19 07:50:00 100 kg [facility] (LUF/DAVID/SA) Heart Rate 2020-07-05 04:46:00 80 /min [facility] (LUF/DAVID/SA) Respiratory Rate 2020-07-05 04:46:00 15 /min [facility] (LUF/DAVID/SA) BP Systolic 2020-07-05 04:46:00 134 mm[Hg] [facility] (LUF/DAVID/SA) BP Diastolic 2020-07-05 04:46:00 60 mm[Hg] [facility] (LUF/DAVID/SA) Body Temperature 2020-07-05 02:57:00 98 [degF] [facility] (LUF/DAVID/SA) Pulse Rate 2020-07-05 02:57:00 82 /min [facility] (LUF/DAVID/SA) O2% BldC Oximetry 2020-07-05 02:57:00 99 % [facility] (LUF/DAVID/SA) Height 2020-07-05 02:50:00 65 [in_i] [facility] (LUF/DAVID/SA) Weight 2020-07-05 02:50:00 102.1 kg [facility] (LUF/DAVID/SA) BMI (Body Mass 2020-07-05 02:50:00 37.5 kg/m2 [facility]) [facility] (LUF/DAVID/SA) Body Temperature 2020-06-07 13:38:00 98.5 [degF] [facility] (LUF/DAVID/SA) Pulse Rate 2020-06-07 13:38:00 95 /min [facility] (LUF/DAVID/SA) Respiratory Rate 2020-06-07 13:38:00 20 /min [facility] [facility] (LUF/DAVID/SA) O2% BldC Oximetry 2020-06-07 13:38:00 97 % [facility] (LUF/DAVID/SA) BP Systolic 2020-06-07 13:38:00 129 mm[Hg] [facility] (LUF/DAVID/SA) BP Diastolic 2020-06-07 13:38:00 73 mm[Hg] [facility] (LUF/DAVID/SA) Height 2020-06-07 13:38:00 64 [in_i] [facility] (LUF/DAVID/SA) Weight 2020-06-07 13:38:00 99.79 kg [facility] (LUF/DAVID/SA) BMI (Body Mass 2020-06-07 13:38:00 38 kg/m2 [facility]) [facility] (LUF/DAVID/SA) Body Temperature 2020-05-31 09:45:00 99.6 [degF] [facility] (LUF/DAVID/SA) Pulse Rate 2020-05-31 09:45:00 86 /min [facility] (LUF/DAVID/SA) Respiratory Rate 2020-05-31 09:45:00 18 /min [facility] (LUF/DAVID/SA) O2% BldC Oximetry 2020-05-31 09:45:00 98 % [facility] (LUF/DAVID/SA) BP Systolic 2020-05-31 09:45:00 118 mm[Hg] [facility] (LUF/DAVID/SA) BP Diastolic 2020-05-31 09:45:00 78 mm[Hg] [facility] (LUF/DAVID/SA) Height 2020-05-31 09:45:00 64 [in_i] [facility] (LUF/DAVID/SA) Weight 2020-05-31 09:45:00 99.79 kg [facility] (LUF/DAVID/SA) BMI (Body Mass 2020-05-31 09:45:00 38 kg/m2 [facility] (LUF/DAVID/SA) Heart Rate 2020-04-25 20:01:00 69 /min [facility] (LUF/DAVID/SA) Pulse Rate 2020-04-25 20:01:00 71 /min [facility] (LUF/DAVID/SA) Respiratory Rate 2020-04-25 20:01:00 18 /min [facility] (LUF/DAVID/SA) O2% BldC Oximetry 2020-04-25 20:01:00 100 % [facility] (LUF/DAVID/SA) BP Systolic 2020-04-25 20:01:00 126 mm[Hg] [facility] (LUF/DAVID/SA) BP Diastolic 2020-04-25 20:01:00 86 mm[Hg] [facility] (LUF/DAVID/SA) Body Temperature 2020-04-25 16:50:00 98.4 [degF] [facility] (LUF/DAVID/SA) Height 2020-04-25 16:50:00 64 [in_i] [facility] (LUF/DAVID/SA) Weight 2020-04-25 16:50:00 220 [lb_av] [facility] (LUF/DAVID/SA) BMI (Body Mass 2020-04-25 16:50:00 38 kg/m2 [facility]) [facility] (LUF/DAVID/SA) Heart Rate 2020-03-20 18:18:00 112 /min [facility] (LUF/DAVID/SA) Pulse Rate 2020-03-20 18:16:00 93 /min [facility] (LUF/DAVID/SA) O2% BldC Oximetry 2020-03-20 18:16:00 92 % [facility] (LUF/DAVID/SA) BP Systolic 2020-03-20 18:16:00 127 mm[Hg] [facility] (LUF/DAVID/SA) BP Diastolic 2020-03-20 18:16:00 85 mm[Hg] [facility] (LUF/DAVID/SA) Body Temperature 2020-03-20 17:17:00 99.2 [degF] [facility] (LUF/DAVID/SA) Respiratory Rate 2020-03-20 17:17:00 19 /min [facility] (LUF/DAVID/SA) Height 2020-03-20 17:17:00 64 [in_i] [facility] (F/DAVID/SA) Weight 2020-03-20 17:17:00 106.9 kg [facility] (LUF/DAVID/SA) BMI (Body Mass 2020-03-20 17:17:00 40.7 kg/m2 [facility]) [facility] (LUF/DAVID/SA) Respiratory Rate 2020-03-17 10:33:00 16 /min [facility] (F/DAVID/SA) Body Temperature 2020-03-17 07:54:00 97.9 [degF] [facility] (F/DAVID/SA) Pulse Rate 2020-03-17 07:54:00 83 /min [facility] (LUF/DAVID/SA) O2% BldC Oximetry 2020-03-17 07:54:00 96 % [facility] (LUF/DAVID/SA) BP Systolic 2020-03-17 07:54:00 107 mm[Hg] [facility] (LUF/DAVID/SA) BP Diastolic 2020-03-17 07:54:00 75 mm[Hg] [facility] (LUF/DAVID/SA) Weight 2020-03-17 00:09:00 105.6 kg [facility] (LUF/DAVID/SA) Heart Rate 2020-03-13 15:46:00 81 /min [facility] (LUF/DAVID/SA) Height 2020-03-13 15:31:00 64 [in_i] [facility] (LUF/DAVID/SA) Body Temperature 2020-03-02 15:20:00 98.6 [degF] [facility] (LUF/DAVID/SA) Pulse Rate 2020-03-02 15:20:00 86 /min [facility] (LUF/DAVID/SA) Respiratory Rate 2020-03-02 15:20:00 18 /min [facility] (LUF/DAVID/SA) O2% BldC Oximetry 2020-03-02 15:20:00 99 % [facility] (LUF/DAVID/SA) BP Systolic 2020-03-02 15:20:00 131 mm[Hg] [facility] (LUF/DAVID/SA) BP Diastolic 2020-03-02 15:20:00 85 mm[Hg] [facility] (LUF/DAVID/SA) Height 2020-03-01 10:54:00 64 [in_i] [facility] (LUF/DAVID/SA) Weight 2020-03-01 10:54:00 102 kg [facility] (LUF/DAVID/SA) BMI (Body Mass 2020-03-01 10:54:00 38.8 kg/m2 [facility] (LUF/DAVID/SA) Respiratory Rate 2020-02-27 07:47:00 16 /min [facility] (LUF/DAVID/SA) Body Temperature 2020-02-27 07:32:00 98.2 [degF] [facility] (LUF/DAVID/SA) Pulse Rate 2020-02-27 07:32:00 94 /min [facility] (LUF/DAVID/SA) O2% BldC Oximetry 2020-02-27 07:32:00 95 % [facility] (LUF/DAVID/SA) BP Systolic 2020-02-27 07:32:00 111 mm[Hg] [facility] (LUF/DAVID/SA) BP Diastolic 2020-02-27 07:32:00 56 mm[Hg] [facility] (LUF/DAVID/SA) Weight 2020-02-26 02:09:00 99.6 kg [facility] (LUF/DAVID/SA) Height 2020-02-25 10:03:00 64 [in_i] [facility] (LUF/DAVID/SA) Body Temperature 2020-02-25 00:52:00 97.9 [degF] [facility] (LUF/DAVID/SA) Pulse Rate 2020-02-25 00:52:00 118 /min [facility] (LUF/DAVID/SA) Respiratory Rate 2020-02-25 00:52:00 18 /min [facility] (LUF/DAVID/SA) O2% BldC Oximetry 2020-02-25 00:52:00 97 % [facility] (LUF/DAVID/SA) BP Systolic 2020-02-25 00:52:00 133 mm[Hg] [facility] (LUF/DAVID/SA) BP Diastolic 2020-02-25 00:52:00 67 mm[Hg] [facility] (LUF/DAVID/SA) Height 2020-02-25 00:47:00 64 [in_i] [facility] (LUF/DAVID/SA) Weight 2020-02-25 00:47:00 103.4 kg [facility] (LUF/DAVID/SA) BMI (Body Mass 2020-02-25 00:47:00 39.3 kg/m2 [facility] (LUF/DAVID/SA) Body Temperature 2020-01-25 11:32:00 98.4 [degF] [facility] (LUF/DAVID/SA) Pulse Rate 2020-01-25 11:32:00 81 /min [facility] (LUF/DAVID/SA) Respiratory Rate 2020-01-25 11:32:00 14 /min [facility] (LUF/DAVID/SA) O2% BldC Oximetry 2020-01-25 11:32:00 98 % [facility] (LUF/DAVID/SA) BP Systolic 2020-01-25 11:32:00 139 mm[Hg] [facility] (LUF/DAVID/SA) BP Diastolic 2020-01-25 11:32:00 89 mm[Hg] [facility] (LUF/DAVID/SA) Height 2020-01-25 11:32:00 64 [in_i] [facility] (LUF/DAVID/SA) Weight 2020-01-25 11:32:00 100.5 kg [facility] (LUF/DAVID/SA) BMI (Body Mass 2020-01-25 11:32:00 38.2 kg/m2 [facility] Index) [facility] (LUF/DAVID/SA) Heart Rate 2019-11-24 04:16:00 84 /min [facility] (LUF/DAVID/SA) Pulse Rate 2019-11-24 04:16:00 90 /min [facility] (LUF/DAVID/SA) Respiratory Rate 2019-11-24 04:16:00 26 /min [facility] (LUF/DAVID/SA) O2% BldC Oximetry 2019-11-24 04:16:00 98 % [facility] (LUF/DAVID/SA) BP Systolic 2019-11-24 04:16:00 106 mm[Hg] [facility] (LUF/DAVID/SA) BP Diastolic 2019-11-24 04:16:00 69 mm[Hg] [facility] (LUF/DAVID/SA) Body Temperature 2019-11-24 00:54:00 98.4 [degF] [facility] (LUF/DAVID/SA) Height 2019-11-24 00:49:00 65 [in_i] [facility] (LUF/DAVID/SA) Weight 2019-11-24 00:49:00 103 kg [facility] (LUF/DAVID/SA) BMI (Body Mass 2019-11-24 00:49:00 37.8 kg/m2 [facility] Index) [facility] (LUF/DAVID/SA) Heart Rate 2019-10-07 22:54:00 83 /min [facility] (LUF/DAVID/SA) Respiratory Rate 2019-10-07 22:54:00 14 /min [facility] (LUF/DAVID/SA) Pulse Rate 2019-10-07 22:31:00 89 /min [facility] (LUF/DAVID/SA) O2% BldC Oximetry 2019-10-07 22:31:00 97 % [facility] (LUF/DAVID/SA) BP Systolic 2019-10-07 21:16:00 127 mm[Hg] [facility] (LUF/DAVID/SA) BP Diastolic 2019-10-07 21:16:00 85 mm[Hg] [facility] (LUF/DAVID/SA) Height 2019-10-07 20:41:00 64 [in_i] [facility] (LUF/DAVID/SA) Weight 2019-10-07 20:41:00 100.2 kg [facility] (LUF/DAVID/SA) BMI (Body Mass 2019-10-07 20:41:00 38.1 kg/m2 [facility] (LUF/DAVID/SA) Pulse Rate 2019-09-20 04:16:00 96 /min [facility] (LUF/DAVID/SA) Respiratory Rate 2019-09-20 04:16:00 9 /min [facility] (LUF/DAVID/SA) O2% BldC Oximetry 2019-09-20 04:16:00 96 % [facility] (LUF/DAVID/SA) BP Systolic 2019-09-20 04:16:00 97 mm[Hg] [facility] (LUF/DAVID/SA) BP Diastolic 2019-09-20 04:16:00 76 mm[Hg] [facility] (LUF/DAVID/SA) Body Temperature 2019-09-20 00:44:00 98 [degF] [facility] (LUF/DAVID/SA) Height 2019-09-20 00:39:00 65 [in_i] [facility] (LUF/DAVID/SA) Weight 2019-09-20 00:39:00 101.9 kg [facility] (LUF/DAVID/SA) BMI (Body Mass 2019-09-20 00:39:00 37.4 kg/m2 [facility] Index) [facility] (LUF/DAVID/SA) Pulse Rate 2019-08-17 04:31:00 81 /min [facility] (LUF/DAVID/SA) Respiratory Rate 2019-08-17 04:31:00 13 /min [facility] (LUF/DAVID/SA) O2% BldC Oximetry 2019-08-17 04:31:00 97 % [facility] (LUF/DAVID/SA) BP Systolic 2019-08-17 04:31:00 136 mm[Hg] [facility] (LUF/DAVID/SA) BP Diastolic 2019-08-17 04:31:00 75 mm[Hg] [facility] (LUF/DAVID/SA) Body Temperature 2019-08-17 02:23:00 97.6 [degF] [facility] (F/DAVID/SA) Height 2019-08-17 02:19:00 64 [in_i] [facility] (LUF/DAVID/SA) Weight 2019-08-17 02:19:00 100.6 kg [facility] (LUF/DAVID/SA) BMI (Body Mass 2019-08-17 02:19:00 38.3 kg/m2 [facility] Index) [facility] (LUF/DAVID/SA) Pulse Rate 2018-12-07 02:33:00 79 /min [facility] (F/DAVID/SA) Respiratory Rate 2018-12-07 02:33:00 15 /min [facility] (F/DAVID/SA) O2% BldC Oximetry 2018-12-07 02:33:00 96 % [facility] (LUF/DAVID/SA) BP Systolic 2018-12-07 02:33:00 120 mm[Hg] [facility] (LUF/DAVID/SA) BP Diastolic 2018-12-07 02:33:00 76 mm[Hg] [facility] (LUF/DAVID/SA) Body Temperature 2018-12-07 01:10:00 98.2 F [facility] (LUF/DAVID/SA) Height 2018-12-07 01:10:00 64 in [facility] (LUF/DAVID/SA) Weight Measured 2018-12-07 01:10:00 218.25 lbs [facility] (LUF/DAVID/SA) BMI (Body Mass 2018-12-07 01:10:00 37.7 kg/m2 [facility]) [facility] (LUF/DAVID/SA) Pulse Rate 2018-09-30 19:40:00 70 /min [facility] (LUF/DAVID/SA) Respiratory Rate 2018-09-30 19:40:00 21 /min [facility] (F/DAVID/SA) O2% BldC Oximetry 2018-09-30 19:40:00 100 % [facility] (F/DAVID/SA) BP Systolic 2018-09-30 19:40:00 124 mm[Hg] [facility] (LUF/DAVID/SA) BP Diastolic 2018-09-30 19:40:00 88 mm[Hg] [facility] (LUF/DAVID/SA) Body Temperature 2018-09-30 19:23:00 99.3 F [facility] (F/DAVID/SA) Height 2018-09-30 19:23:00 66 in [facility] (F/DAVID/SA) Weight Measured 2018-09-30 19:23:00 212.52 lbs [facility] (LUF/DAVID/SA) BMI (Body Mass 2018-09-30 19:23:00 34.5 kg/m2 [facility]) [facility] (LUF/DAVID/SA) Body Temperature 2018-09-01 13:59:00 98 F [facility] (F/DAVID/SA) Pulse Rate 2018-09-01 12:15:00 74 /min [facility] (F/DAVID/SA) Respiratory Rate 2018-09-01 12:15:00 16 /min [facility] (F/DAVID/SA) O2% BldC Oximetry 2018-09-01 12:15:00 98 % [facility] (F/DAVID/SA) BP Systolic 2018-09-01 12:15:00 131 mm[Hg] [facility] (LUF/DAVID/SA) BP Diastolic 2018-09-01 12:15:00 78 mm[Hg] [facility] (LUF/DAVID/SA) Height 2018-09-01 09:16:00 64 in [facility] (LUF/DAVID/SA) Weight Measured 2018-09-01 09:16:00 214.24 lbs [facility] (LUF/DAVID/SA) BMI (Body Mass 2018-09-01 09:16:00 37 kg/m2 [facility] Index) [facility] (LUF/DAVID/SA) Body Temperature 2018-05-13 10:58:00 99 F [facility] (LUF/DAVID/SA) Pulse Rate 2018-05-13 10:58:00 97 /min [facility] (LUF/DAVID/SA) Respiratory Rate 2018-05-13 10:58:00 18 /min [facility] (F/DAVID/SA) O2% BldC Oximetry 2018-05-13 10:58:00 98 % [facility] (LUF/DAVID/SA) BP Systolic 2018-05-13 10:58:00 131 mm[Hg] [facility] (LUF/DAVID/SA) BP Diastolic 2018-05-13 10:58:00 88 mm[Hg] [facility] (LUF/DAVID/SA) Height 2018-05-13 10:58:00 64 in [facility] (LUF/DAVID/SA) Weight Measured 2018-05-13 10:58:00 207.23 lbs [facility] (LUF/DAVID/SA) BMI (Body Mass 2018-05-13 10:58:00 35.8 [facility] (LUF/DAVID/SA) Body Temperature 2017-12-24 08:04:00 98.7 F [facility] (F/DAVID/SA) Respiratory Rate 2017-12-24 08:04:00 18 /min [facility] (F/DAVID/SA) O2% BldC Oximetry 2017-12-24 08:04:00 98 % [facility] (LUF/DAVID/SA) BP Systolic 2017-12-24 08:04:00 126 mm[Hg] [facility] (LUF/DAVID/SA) BP Diastolic 2017-12-24 08:04:00 86 mm[Hg] [facility] (LUF/DAVID/SA) Weight Measured 2017-12-24 08:04:00 207.23 lbs [facility] (F/DAVID/SA) Body Temperature 2017-06-20 23:28:00 97.4 F [facility] (F/DAVID/SA) Respiratory Rate 2017-06-20 23:28:00 20 /min [facility] (F/DAVID/SA) O2% BldC Oximetry 2017-06-20 23:28:00 99 % [facility] (F/DAVID/SA) BP Systolic 2017-06-20 23:28:00 107 mm[Hg] [facility] (F/DAVID/SA) BP Diastolic 2017-06-20 23:28:00 76 mm[Hg] [facility] (F/DAVID/SA) Height 2017-06-20 23:28:00 64 in [facility] (F/DAVID/SA) Weight Measured 2017-06-20 23:28:00 217.15 lbs [facility] (F/DAVID/SA) BMI (Body Mass 2017-06-20 23:28:00 37.5 [facility] (F/DAVID/SA) Procedures Procedure Date / Time Performing Clinician Source Performed LIPASE 2023-03-19 04:35:00 Tato Swain [facility] MAGNESIUM 2023-03-19 04:35:00 Tato Swain [facility] COMP. METABOLIC PANEL 2023-03-19 04:35:00 Tato Swain [facility] ([id number]) [facility] CBC WITH DIFF 2023-03-19 04:35:00 Tato Swain Liset [facility] URINALYSIS 2023-03-19 04:35:00 Tato Swain [facility] CBC WITH DIFF 2023-03-19 04:35:00 Tato Swain [facility] CONSENT/REFUSAL FOR 2023-03-19 03:58:57 Doctor Unassigned, No [facility] [place] [facility] Name [facility] [place] [id number] 2023-01-21 00:00:00 JOE DAVID [facility] CBC WITH DIFF 2022-12-25 04:21:00 Komal Correa [facility] CONSENT/REFUSAL FOR 2022-12-25 03:39:49 Doctor Unassigned, No [facility] [place] [facility] TREAT[facility] Name [facility] TEST, SERUM 2022-12-16 22:19:00 Valentin Box [facility] COMP. METABOLIC PANEL 2022-12-16 22:19:00 Valentin Box [facility] ([id number]) [facility] URINE DRUG (IMMUNOASSAY) 2022-12-16 22:19:00 Valentin Box [facility] DRUG Medical [facility] nch SCREEN CBC WITH DIFF 2022-12-16 22:19:00 Valentin Box [facility] URINALYSIS 2022-12-16 22:19:00 Valentin Box [facility] CONSENT/REFUSAL FOR 2022-12-16 21:59:42 Doctor Unassigned, No [facility] [place] [facility] TREATMENT [facility] CT ABDOMEN PELVIS W 2022-11-21 05:31:00 [facility] CONTRAST [facility] POCT TEST 2022-11-21 04:40:00 [facility] LIPASE 2022-11-21 03:35:00 [facility] COMP. METABOLIC PANEL 2022-11-21 03:35:00 Suzanne Lopez [facility] ([id number]) [facility] CBC WITH DIFF 2022-11-21 03:35:00 [facility] URINALYSIS 2022-11-21 03:35:00 [facility] CONSENT/REFUSAL FOR 2022-11-21 02:48:21 Doctor Unassigned, No [facility] [place] DIAG[facility] TREATMENT Name Medical [facility] LIPASE 2022-10-26 03:56:00 Valentin Box [facility] COMP. METABOLIC PANEL 2022-10-26 03:56:00 Valentin Box [facility] ([id number]) [facility] CBC WITH DIFF 2022-10-26 03:56:00 Valentin Box [facility] URINE DRUG (IMMUNOASSAY) 2022-10-26 03:50:00 Valentin Box [facility] DRUG Medical [facility] SCREEN URINALYSIS 2022-10-26 03:50:00 Valentin Box [facility] CONSENT/REFUSAL FOR 2022-10-26 03:29:08 Doctor Unassigned, No [facility] DIAGNOSIS AND TREATMENT Name [facility] LIPASE 2022-10-03 05:40:00 [facility] TEST, SERUM 2022-10-03 05:40:00 Montserrat [facility] COMP. METABOLIC PANEL 2022-10-03 05:40:00 Montserrat Acosta [facility] ([id number]) [facility] CBC WITH DIFF 2022-10-03 05:40:00 [facility] NOTICE OF PRIVACY 2022-10-03 03:10:55 Doctor Unassigned, No [facility] PRACTICES Name [facility] CONSENT/REFUSAL FOR 2022-10-03 03:10:26 [facility] Name [facility] POCT SARS-COV-2 ANTIGEN 2022-06-13 23:43:00 Magdalene Lucia [facility] (BINAX NOW) [facility] CT ABDOMEN PELVIS WO 2022-05-07 15:06:09 Ridge Pagan [facility] CONTRAST [facility] BASIC METABOLIC PANEL 2022-05-07 14:20:00 Ridge Pagan [facility] (NA, K, CL, CO2, GLUCOSE, Medica l Branch BUN, CREATININE, CA) CBC WITH DIFF 2022-05-07 14:20:00 Ridge Pagan [facility] URINALYSIS 2022-05-07 14:20:00 Jayes, Azam [facility] CONSENT/REFUSAL FOR 2022-05-07 13:49:51 Doctor Unassigned, No [facility] [place] [facility] TREATMENT Name [facility] CT ABDOMEN PELVIS WO 2022-02-19 15:49:34 [facility] LIPASE 2022-02-19 14:26:00 Trice Harris [facility] COMP. METABOLIC PANEL 2022-02-19 14:26:00 [facility] ([id number]) [facility] CBC WITH DIFF 2022-02-19 14:26:00 Trice Harris [facility] URINALYSIS 2022-02-19 14:26:00 Trice Harris [facility] CONSENT/REFUSAL FOR 2022-02-19 14:11:01 Doctor Unassigned, No [facility] Name [facility] POCT MOLECULAR FLU 2021-11-29 22:46:00 A[facility] INS INFUS DEV LT BASILIC 2020-03-15 00:00:00 [facility] VN PERQ [facility] (LUF/DAVID/SA) ULTRASONOGRAPHY LT UP EXT 2020-03-15 00:00:00 [facility] VNS GUID [facility] (LUF/DAVID/SA) ROBOTIC LAP LYSIS OF 2020-03-02 12:56:00 [facility] ADH[facility] (LUF/DAVID/SA) LAPAROSCOPY ENTEROLYSIS 2020-03-02 00:00:00 [facility] SEPARATE PROCEDU [facility] (LUF/DAVID/SA) COLONOSCOPY FLX DX 2020-02-26 00:00:00 [facility] Olamide kes W/COLLJ SPEC WHEN [facility] (LUF/DAVID/SA) ROBOTIC RIGHT 2019-03-21 17:09:00 [facility] OOPHORECTOMY LUF (Right) [facility]oria l (LUF/DAVID/SA) CYSTO RGP STENT PLACEMENT 2015-04-20 14:01:00 [facility] LUF [facility] (LUF/DAVID/SA) CYSTO RGP STENT PLACEMENT 2015-04-20 14:01:00 [facility] (LUF/DAVID/SA) Hysterectomy [facility] (LUF/DAVID/SA) Total thyroidectomy [facility] (F/DAVID/SA) section [facility] ([facility]/DAVID/SA) ABDOMINAL ADHESIONS [facility] REMOVED [facility] (F/DAVID/SA) Extracorporeal shockwave [facility] lithotripsy [facility] ([facility]/DAVID/SA) MULTIPLE CYSTECTOMYS DONE [facility] (F/DAVID/SA) MULTIPLE CYSTECTOMYS DONE [facility] ([facility]/DAVID/SA) ABDOMINAL ADHESIONS [facility] REMOVED [facility] ([facility]/DAVID/SA) Appendectomy [facility] ([facility]/DAVID/SA) Plan of Care Planned Activity Planned Date Details Comments Source Future Scheduled 2023-01-24 COVID-19 Vaccination [facility] [place] Test 15:47:07 (#1) [code = COVID-19 [facility] (#1[facility] Center Future Scheduled 2022-10-25 COVID-19 Vaccination [facility] Test 11:08:40 (#1) [code = COVID-19 [facility] (#1)] Center Future Scheduled 2022-10-25 COVID-19 Vaccination [facility] Test 11:08:40 (#1) [code = COVID-19 [facility] (#1)] Center Future Scheduled 2022-10-10 COVID-19 Vaccination [facility] [place] Test 17:54:08 (#1) [code = COVID-19 MD And erson [...] Nba, STLMLC STLC Common 08:27:02 Josué 0127 [facility] 2021-07-26 Outpatient Nba, STLMLC [facility] Common 14:20:31 Josué 1203 [facility] 2021-07-26 Outpatient Nba, STLMLC STLMLC Common 14:05:52 Josué 1027 [facility] 2021-07-26 Outpatient Nba, STLMLC STLMLC Common 12:01:28 Josué 1103 [facility] 2021-07-26 Outpatient Nba, STLMLC STLMLC Common 11:56:42 Josué 1019 [facility] 2021-07-26 Outpatient Nba, STLMLC STLMLC Common 11:49:38 Josué 0928 [facility] 2021-07-26 Outpatient Nba, STLMLC STLC Common 11:48:02 Josué 0922 [facility] 2021-07-[address] [facility] Common 11:47:47 Josué 0921 [facility] 2021-07-[address] [facility] Common 11:42:15 Josué 0901 [facility] 2021-07-26 [facility]patient [facility]ST [facility] 11:32:09 Josué 0720 [facility] 2023-03-18 2023-03-19 Emergency X Tato SWAIN [facility] ERT [id number] Univers 23:02:00 01:14:[address] [facility] 2023-03-18 2023-03-19 Emergency Tato Swain [facility] [id number] Univers 23:02:00 01:14:00 Liset GAONA [id number] i ty [facility] [id number] [facility] [id number] [place] [address] [address] 2023-03-02 2023-03-03 RIGHT 1 LONI COTTON EMD [id number] [facility] 23:30:00 03:54:00 LOWER [facility] QUADRANT Memoria PAIN l (LUF/LI V/SA) 2023-03-02 2023-03-02 Inpatient [facility] [id number] [facility] 00:00:00 00:00:00 [facility] [id number] [facility] [id number] Memor ia [id number] l [place] (LUF/LI AVE, V/SA) JULIÁN ROSA [id number] 2023-03-02 2023-03-02 Inpatient [facility] [id number] 00:00:00 00:00:00 HOMEWOOD [id number] [facility], [id number] Memor ia [address] [id number] l [place] (LUF/LI AVE, V/SA) JULIÁN ROSA [id number] 2023-01-21 2023-01-23 [facility]patient [facility] [id number] [facility] 16:42:00 10:30:00 Lion 41 [facility] 2022-12-24 2022-12-24 Emergency X SUNNY, [facility] ERT [id number] Univers 22:54:00 23:38:00 KOMAL itphoebe [facility] 2022-12-24 2022-12-24 [facility] [id number] Univers 22:54:00 23:38:00 Komal GAONA 350.1.13.10 i ty of [place] 4.2.7.2.686 [facility] [id number] [address] 2022-12-16 2022-12-16 Emergency X DUARTE, [facility] ERT [id number] Univers 17:03:00 19:23:00 VALENTIN mleo [facility] 2022-12-16 2022-12-16 Emergency Vaslarui, [facility] [id number] Univers 17:03:00 19:23:00 Valentin GAONA 350.1.13.10 i ty of [place] 4.2.7.2.686 [facility] [id number] [address] 2022-11-20 2022-11-21 Emergency X [facility] ERT [id number] Univers 21:54:00 02:10:00 SUZANNE [facility] 2022-11-20 2022-11-21 Emergency [facility] 1.2.840.114 [id number] Univers 21:54:00 02:10:00 Suzanne GAONA 350.1.13.10 ity [facility] 4.2.7.2.686 [facility] [id number] [address] 2022-10-25 2022-10-26 Emergency X DUARTE, [facility] ERT [id number] Univers 22:33:00 01:21:00 VALENTIN melo [facility] 2022-10-25 2022-10-26 Emergency Vaslauri, [facility] 1.2.367.061 [id number] Univers 22:33:00 01:21:00 Valentin GAONA 350.07.13.10 i ty of [place] 4.2.7.2.686 [facility] [phone] [address] 2022-10-02 2022-10-03 Emergency X RIDRAFAEL, [facility] ERT [id number] Univers 22:34:00 02:31:00 [facility] eddie y [facility] 2022-10-02 2022-10-03 Emergency Alden, [facility] 1.2.997.323 [id number] Univers 22:34:00 02:31:00 Montserrat GAONA 350..13.10 ity [facility] 4.2.7.2.686 [facility] [id number] [address] 2022-08-12 2022-08-12 Outpatient FOG_Dunn_Wa AOSM AOSM 643 9319-20 Adelia 00:00:00 00:00:00 Jhon [id number] [facility] 2022-07-22 2022-07-22 Outpatient FOG_Dunn_Wa AOSM AOSM 643 9319-20 Adelia 00:00:00 00:00:00 Jhon [id number] [facility] 2022-07-06 2022-07-06 Outpatient FOG_Dunn_Wa AOSM AOSM 643 9319-20 Adelia 00:00:00 00:00:00 Jhon [id number] [facility] 2022-06-17 2022-06-17 Outpatient FOG_Dunn_Wa AOSM AOSM 643 9319-20 Adelia 00:00:00 00:00:00 Jhon [id number] [facility] 2022-06-13 2022-06-13 Outpatient Irwin LUCIA [facility] [id number] Univers 17:20:00 17:41:53 MAGDALENE melo [facility] 2022-06-13 2022-06-13 Urgent Magdalene Lucia [facility] 1.2.840.114 [id number] Univers 17:20:00 17:41:53 Care Unknown, Attending HEALTH 350.13.[address] [facility] 4.2.7.2.686 Jacques as SUE?BLEA [phone] Oh dical [address] MEDICAL OFFICE [facility] 2022-06-13 2022-06-13 [facility] 1.2.601.353 [id number] Univers 00:00:00 00:00:00 [facility] 350.1.13.10 it y of [place] 4.2.7.2.686 Jacques as SUE?BLEA [phone] Oh dical [address] 2022-05-13 2022-05-13 Outpatient FOG_Ingrid_Vita AOSM AOSM 643 9319-20 Adelia 00:00:00 00:00:00 Jhon [id number] [facility] 2022-05-07 2022-05-07 Emergency X EJ [facility] ERT [id number] Univers 07:57:00 09:45:00 RIDGE phoebe [facility] 2022-05-07 2022-05-07 Emergency [facility] 1.2.266.547 [id number] Univers 07:57:00 09:45:00 Ridge GAONA 350.1.13.10 i ty of [place] 4.2.7.2.686 [facility] [id number] [address] 2022-05-07 2022-05-07 Outpatient FOG_Ingrid_Vita AOSM AOSM 643 9319-20 Adelia 00:00:00 00:00:00 Jhon [id number] [facility] 2022-04-23 2022-04-23 Emergency EM PACO Quintero [id number] [facility] 09:39:00 10:55:00 Truman Levy [place] [facility] 2022-02-19 2022-02-19 Emergency X STEVEN [facility] ERT [id number] Univers 09:15:00 11:05:00 TRICE phoebe [facility] 2022-02-19 2022-02-19 Emergency [facility] 1.2.840.114 [id number] Univers 09:15:00 11:05:00 Trice [place] 350.1.13.10 i ty of [place] 4.2.7.2.686 [facility] [id number] [address] 2021-11-29 2021-11-29 [facility] 1.2.840.114 [id number] Univers 17:40:00 18:00:00 Care [facility] 350.1.13.10 it y of [place] 4.2.7.2.686 Jacques as SUE?BLEA [phone] Oh dical [address] MEDICAL OFFICE BUILDING 2021-11-29 2021-11-29 [facility] [id number] Univers 17:40:00 17:40:00 AMEENA ity [facility] 2021-11-29 2021-11-29 [facility] [id number] Univers 17:40:00 17:40:00 [facility] 2021-10-26 2021-10-26 Office GEOVANI Blas, 1.2.840.1 [id number] Univers 09:45:00 10:47:06 Visit Praveen 71154.1.1 ity of 3.412.2.7 [place] .3.973017 .8 [facility] 2021-10-26 2021-10-26 Travel 1.2.840.1 1.2.660.044 6087 [id number] Univers 00:00:00 00:00:00 81862.1.1 350.1.13.41 ity of 3.412.2.7 2.[place].3.698 [place] .3.080135 084.8 .8 [facility] 2021-10-15 2021-10-15 ROSEMARIE Conchis LARA [facility] EMD [id number] 22:25:00 22:45:00 CONSCIOUS EKTA Gamboa s SIMULATION Memor prabhakar watts (TIERA/YUKI V/SA) 2021-10-15 2021-10-15 Inpatient [facility] 79e1 4a53-b [facility] 00:00:00 00:00:00 HOMEWOOD [id number] Gutierrez [facility], [phone] Memor prabhakar [address] 0[address] stefanie MEHTA (TIERA/YUKI WEBB, V/SA) TIERAJULIÁN WATTS 70[address] 2021-10-15 2021-10-15 Inpatient [facility] OF [facility] 2f6e c8b8-[address] 00:00:00 00:00:00 HOMEWOOD 053-4dfa-8 Gutierrez jaqueline [place], [id number] Memor ia [address] 66e57b stefanie MEHTA (LUF/LI AVE, V/SA) JULIÁN ROSA [address] 2021-08-29 2021-08-29 Outpatient R TERE [facility] [id number] Univers 16:20:00 16:20:00 PATRICK [facility] 2021-08-07 2021-08-07 Emergency EM Tyree, [facility] AMPARO [id number] [facility] 09:36:00 12:55:00 Olga 19 [facility] 2021-08-01 2021-08-02 Emergency X [facility] ERT [id number] Univers 22:00:00 01:17:00 LEANNE [facility] 2021-08-01 2021-08-02 Emergency [facility] 1.2.617.351 [id number] Univers 22:00:00 01:17:00 Leanne La [place] 350.1.13.10 i ty of [place] 4.2.7.2.686 [place] [phone] [facility] 084 [place] 2021-06-28 2021-06-28 Outpatient R KHARI [facility] [id number] Univers 17:30:00 17:30:00 MAGDALENE [facility] 2021-06-22 2021-06-22 Letter REHAN Chaves 1.2.840.114 [id number] Univers 00:00:00 00:00:00 (Out) Eve LEE 350.1.13.10 it y of [facility] 4.2.7.2.686 Jacques as [phone] [facility] [address]19 [address] 2021-06-22 2021-06-22 Park [facility] 1.2.840.114 [id number] Univers 00:00:00 00:00:00 [facility] 350.1.13.10 it y of [place] 4.2.7.2.686 Jacques as SUE?BLEA [phone] [address] MEDICAL OFFICE BUILDING 2021-06-21 2021-06-21 Outpatient R TERE [facility] [id number] Univers 11:00:00 12:14:12 PATRICK ity [facility] 2021-06-21 2021-06-21 Urgent Patrick Carranza [facility] 1.2.840.114 [id number] Univers 11:00:00 11:20:00 [facility] 350.1.13.10 ity of [place] 4.2.7.2.686 Jacques as SUE?BLEA [phone] Me [address] MEDICAL OFFICE [facility] 2021-06-21 2021-06-21 Telephone Tere [facility] 1.2.840.114 [id number] Univers 00:00:00 00:00:00 [facility] 350.1.13.10 it y of [place] 4.2.7.2.686 Jacques as SUE?BLEA [id number] [address] MEDICAL OFFICE [facility] 2021-06-21 2021-06-21 Letter Doctor REHAN 1.2.840.114 [id number] Univers 00:00:00 00:00:00 (Out) Unassigned, ROSA 350.1.13.10 ity of [place] [facility] 4.2.7.2.686 Jacques as [phone] [address] 2021-05-30 2021-05-30 (TEL) [facility] [id number] Co mmon 00:00:00 00:00:00 [facility] 2021-05-29 2021-05-29 (TEL) [facility] [id number] Co mmon 00:00:00 00:00:00 [facility] 2021-04-26 2021-04-26 (TEL) [facility] [id number] Co mmon 00:00:00 00:00:00 [facility] 2021-04-23 2021-04-23 UNSPECIFIE 1 LONI DYKES EMD [id number] 00:46:00 02:08:00 D SETH Dhaliwal ABDOMINAL Memori a PAIN l (LUF/LI V/SA) 2021-04-23 2021-04-23 Inpatient [facility] fb11 ce73-5 [facility] St 00:00:00 00:00:00 HOMEWOOD i74-1p85-7 [facility], [id number]-qh3ya5 Memor ia [address] a89c0d l [place] (LUF/LI AVE, V/[place]) [place] [address] 2021-04-23 2021-04-23 Inpatient [facility] 6aab 1878-[address] 00:00:00 00:00:00 HOMEWOOD h9u-7704-6 [facility], [id number] Memor ia [address] 822c23 l [place] (LUF/LI AVE, V/[place]) [place] [address] 2021-03-24 2021-03-24 ANXIETY 1 COTTON, [facility] 12819 [id number] [facility] 10:25:00 12:27:00 DISORDER REHAN [facility]WOOD [facility] UNSPECIFIE [place], Memor ia D [address] [place] (LUF/LI AVE, V/SA) [place] [address] 2021-03-24 2021-03-24 Inpatient [facility] f871 cc2a-c [facility] 00:00:00 00:00:00 HOMEWOOD 9aa-405b-9 [facility], [id number] Memor ia [address] cf90e3 l [place] (LUF/LI AVE, V/SA) [place] [address] 2021-03-24 2021-03-24 Inpatient [facility] e945 ff19-c [facility] St 00:00:00 00:00:00 HOMEWOOD k01-7w36-m [facility], 88b-033ffa Memor ia [address] 683da2 l [place] (LUF/LI AVE, V/[place]) [place] [address] 2021-03-23 2021-03-23 Orders Nofies, 1.2.840.1 [id number] Univers 00:00:00 00:00:00 Only Viktoriya M 72191.1.1 ity of 3.412.2.7 [place] .3.963229 MD Carter8 [facility] 2021-03-10 2021-03-10 UTI SITE E LEONARDUK, [facility] [id number] 10:29:00 13:50:00 NOT JUAN [facility], Memori a [address] [place] (LUF/LI A[place], V/SA) [place] [address] 2021-03-10 2021-03-10 Inpatient [facility] 16e7 6598-b [facility] 00:00:00 00:00:00 HOMEWOOD m6i-6222-8 [facility], e5i-[id number] Memor ia [address] 8ebb0b l [place] (LUF/LI AVE, V/[place]) [place] [address] 2021-03-10 2021-03-10 Inpatient [facility] 518c 3339-c [facility] St 00:00:00 00:00:00 HOMEWOOD u99-6ej5-7 [facility], [id number] Memor ia [address] f904e5 l [place] (LUF/LI AVE, V/[place]) [place] [address] 2021-02-23 2021-02-23 RIGHT E [facility] [id number] 08:15:00 12:44:00 [facility], Memoria PAIN [address] [place] (LUF/LI A[place], V/[place]) [place] [address] 2021-02-23 2021-02-23 Inpatient [facility] 89b5 d1de-[address] 00:00:00 00:00:00 HOMEWOOD 09f-406d-9 [facility], 74d-24f9de Memor ia [address] e8fcf1 l [place] (LUF/LI A[place], V/[place]) [place] [address] 2021-02-23 2021-02-23 Inpatient [facility] 8500 e20f-[address] 00:00:00 00:00:00 HOMEWOOD 1ef-425c-a [facility], [id number] Memor ia [address] 1655de l [place] (LUF/LI AVE, V/[place]) [place] [address] 2021-01-10 2021-01-10 CALCULUS Jake DYKES, [facility] 19064 [id number] [facility] St 00:21:00 03:06:00 OF KIDNEY SETH [facility], Memoria [address] [place] (LUF/LI A[place], V/SA) [place] [address] 2021-01-10 2021-01-10 Inpatient [facility] 2205[facility]c [facility] 00:00:00 00:00:00 HOMEWOOD b10-1w91-f [facility], 72a-[id number] Memor ia [address] 3fb6a8 l [place] (LUF/LI A[place], V/[place]) [place] [address] 2021-01-10 2021-01-10 Inpatient MMC OF [facility] fe83-e [facility] St 00:00:00 00:00:00 HOMEWOOD ff6-4d87-9 [facility], [id number]-[id number] Memor ia [address] e09ed4 l [place] (LUF/LI AVE, V/[place]) [place] [address] 2020-12-27 2020-12-27 Emergency [facility] Zarina [id number] [address] [place] [address] 00:00:00 00:00:[address] 2020-12-22 2020-12-22 Outpatient 3 LONI MURILLO [facility] [id number] [facility] [address] 09:00:00 09:00:00 SKYE Dhaliwal Memoria l (LUF/LI V/SA) 2020-12-13 2020-12-13 Emergency EM [place], [facility] [id number] [facility] 01:53:00 06:36:00 Tangela Stern [facility] [address] 2020-12-12 2020-12-12 RIGHT Jake COTTON, [facility] [address] 12:33:00 14:00:00 [facility], Memoria PAIN [address] [place] (LUF/LI AVE, V/SA) [place] [address] 2020-12-12 2020-12-12 Inpatient [facility] e2c0 cb47-b [facility] St 00:00:00 00:00:00 HOMEWOOD 82f-45d0-a [facility], 13e-0f9f6d Memor ia [address] l9n151 l [place] (LUF/LI AVE, V/[place]) [place] [address] 2020-12-12 2020-12-12 Inpatient [facility] 43ed f7fe-4 [facility] 00:00:00 00:00:00 HOMEWOOD i33-32cx-p [facility], [id number] Memor ia [address] 70ade3 l [place] (LUF/LI AVE, V/SA) [place] [address] 2020-12-08 2020-12-08 UNSPECIFIE aJke SOTOMAYOR, [facility] 759 [id number] [facility] St 09:44:00 12:26:00 D WYATT [facility] A[facility]OM[facility]AL [place], [facility] PA[facility] [address] [place] (LUF/LI AVE, V/SA) [place] [address] 2020-12-08 2020-12-08 Inpatient [facility] 6a3f a794-a [facility] 00:00:00 00:00:00 HOMEWOOD 1b8-8q59-8 [facility], [id number] Memor ia [address] 9973a7 l [place] (LUF/LI AVE, V/SA) [place] [address] 2020-11-25 2020-11-25 UNSPECIFIE [facility] [id number] [facility] 00:13:00 00:30:00 D [facility]AL [place], [facility] PAIN [address] [place] (LUF/LI AVE, V/SA) [place] [address] 2020-11-25 2020-11-25 Inpatient [facility] 3041 db6a-[address] 00:00:00 00:00:00 HOMEWOOD fb6-4754-b [facility], [id number]-[id number] Memor ia [address] 841f4f l [place] (LUF/LI AVE, V/SA) [place], [place]ULIÁN [address] 2020-11-25 2020-11-25 Inpatient [facility] a3eb ed11-a [facility] 00:00:00 00:00:00 HOMEWOOD o77-0jm4-9 [facility], [id number] Memor ia [address] ea5dda l [place] (LUF/LI AVE, V/SA) [place], [place] [address] 2020-11-21 2020-11-21 ENDOMETRIO 1 [facility] 035 [id number] [facility] St 07:14:00 09:53:00 SIS HOMEWOOD Isra UNSPECIFIE [place], Memor ia D [address] [place] (LUF/LI AVE, V/SA) [place]UL[place] [address] 2020-11-21 2020-11-21 Inpatient [facility] 90f0 278b-0 [facility] St 00:00:00 00:00:00 HOMEWOOD 8n0-54vt-2 [facility], 4bb-5eeded Memor ia [address] 2w1007 l [place] (LUF/LI AVE, V/SA) [place], JULIÁN [address] 2020-11-21 2020-11-21 Inpatient [facility] 3b21 9c7a-9 [facility] 00:00:00 00:00:00 HOMEWOOD 30a-405e-8 [facility], [id number] Memor ia [address] 3040c4 l [place] (LUF/LI AVE, V/SA) [place], [place]N [address] 2020-11-14 2020-11-14 [facility]STRITIS 1 [facility] [id number] [facility] [address] 09:27:00 14:37:00 UNS REHAN Dhaliwal WITHOUT Memoria BLEEDING l (LUF/LI V/SA) 2020-11-14 2020-11-14 Inpatient [facility] d4fe d3e2-[address] 00:00:00 00:00:00 HOMEWOOD 3cf-4b7a-a [facility], [id number]-[id number] Memor ia [address] 2d56cc l [place] (LUF/LI AVE, V/SA) [place] [address] 2020-11-14 2020-11-14 Inpatient [facility] OF [facility] 324e 65b9-b [facility] 00:00:00 00:00:00 HOMEWOOD 464-403c-8 [facility], [id number] Memor ia [address] y9900t l [place] (LUF/LI AVE, V/SA) [place] [address] 2020-11-08 2020-11-08 OTHER E YURY, [facility] 76546 79187 [facility] 08:04:00 13:13:00 CHRONIC REHAN [facility] [address] [place] (LUF/LI AVE, V/SA) [place], [place] [address] 2020-11-08 2020-11-08 Inpatient [facility] 8079 b52c-c [facility] 00:00:00 00:00:00 HOMEWOOD ed8-4ae3-8 [facility], [id number] Memor ia [address] cf6d84 l [place] (LUF/LI AVE, V/SA) [facility] [place] [address] 2020-11-08 2020-11-08 Inpatient [facility] 0f07 dc59-5 [facility] 00:00:00 00:00:00 HOMEWOOD 292-4184-b [facility], [id number]-[id number] Memor ia [address] d1bfd4 l [place] (LUF/LI AVE, V/SA) [place], [facility] 2020-11-08 2020-11-08 Inpatient [facility] 40b4 e14c-1 [facility] 00:00:00 00:00:00 HOMEWOOD 784-40e4-9 [facility], [id number] Memor ia [address] 29ea9a l [place] (LUF/LI AVE, V/SA) [place], [facility] 2020-11-01 2020-11-01 NAUSEA E WANDA, [facility] 77473 60666 [facility] 00:27:00 03:55:00 WITH AMBROSIO [facility], [facility] UNSPECIFIE [address] l D [place] (LUF/LI AVE, V/SA) [place] [address] 2020-11-01 2020-11-01 Inpatient [facility] 1ec3 64c1-c [facility] 00:[facility]:00 00:00:00 HOMEWOOD a32-2gtb-q [facility], 85a-[id number] Memor ia [address] e1051t l [place] (LUF/LI AVE, V/[place]) [place] [address] 2020-11-01 2020-11-01 Inpatient [facility] 79c0 b023-[address] 00:00:00 00:00:00 HOMEWOOD 5b1-509z-s [facility], [id number] Memor ia [address] 783eec l [place] (LUF/LI AVE, V/[place]) [place] [address] 2020-10-04 2020-10-05 OTHER E RODRICK, [facility] [address] 23:32:00 01:00:00 CHRONIC JUAN [facility]IN [place], [facility] [address] [place] (LUF/LI AVE, V/SA) [place] [address] 2020-10-04 2020-10-04 Inpatient [facility] b016 f3f5-a [facility] 00:00:00 00:00:00 HOMEWOOD 0f8-4d2p-y [facility], 67e-2p6084 Memor ia [address] bb93d3 l [place] (LUF/LI AVE, V/SA) [place] [address] 2020-10-04 2020-10-04 Inpatient [facility] ea96 0c7a-[address] 00:00:00 00:00:00 HOMEWOOD 25c-4997-b [facility], [id number] Memor ia [address] 1f27e6 l [place] (LUF/LI A[place], V/[place]) [place] [address] 2020-09-18 2020-09-18 OTHER E [facility] 925196 [address] 01:00:00 04:44:00 CHRONIC [facility] PAIN [place], Memoria [address] [place] (LUF/LI AVE, V/SA) [place] [address] 2020-09-18 2020-09-18 Inpatient [facility] b80a 7ee5-[address] 00:00:00 00:00:00 HOMEWOOD 1l9-845r-4 [facility], [id number] Memor ia [address] a42659 l [place] (LUF/LI A[address], V/[place]) [place] [address] 2020-09-18 2020-09-18 Inpatient [facility] [id number] [facility] 00:00:00 HOMEWOOD [id number] [facility], [id number] Memor ia [address] [id number] l [place] ([address]F/[address], V/SA) [place] [address] 2020-09-12 2020-09-12 ENDOMETRIO E RODRICK, [facility] [place] [id number] [facility] St 00:46:00 02:38:00 SIS [facility] UNSPECIFIE [place], Memor ia D [address] ([address]F/[address], V/SA) [place] [address] 2020-09-12 2020-09-12 Inpatient [facility] [id number] [facility] St 00:00:00 00:00:00 HOMEWOOD [id number] [facility], [id number] Memor ia [address] [id number] l [place] ([address]F/[address], V/SA) [place] [address] 2020-09-12 2020-09-12 Inpatient [facility] [id number] [id number] [facility] 00:00:00 HOMEWOOD [id number] [facility], [id number] Memor ia [address] [id number] l [place] ([address], V/SA) [place] [address] 2020-08-22 2020-08-22 OTHER E KOSCIUK, [facility] [id number] 01:13:00 03:24:00 CHRONIC [facility] PAIN [place], Memoria [address] ([address], V/SA) [place] [address] 2020-08-22 2020-08-22 Inpatient [facility] [id number] 00:00:00 00:00:00 HOMEWOOD [id number] [facility], [id number] Memor ia [address] [id number] l [address] ([address]F/[address], V/SA) [place] [address] 2020-08-22 2020-08-22 Inpatient [facility] [id number] [facility] 00:[facility]:00 00:00:00 HOMEWOOD [id number] [facility], [id number] Memor ia [address] [id number] l [address] ([address], V/SA) [place] [address] 2020-08-06 2020-08-06 Inpatient E SANANAVDEEP, [facility] [id number] 01:21:00 03:35:00 [facility] [address] ([address], V/SA) [place] [address] 2020-08-06 2020-08-06 Inpatient [facility] [id number] [facility] 00:[facility]:00 00:00:00 HOMEWOOD [id number] [facility], [id number] Memor ia [address] [id number] l [address] ([address], V/SA) [place] [address] 2020-07-19 2020-07-19 RIGHT E YURY, [facility] [id number] 07:50:00 11:20:00 [facility] PAIN [address] ([address], V/SA) [place] [address] 2020-07-19 2020-07-19 Inpatient [facility] [id number] [facility] 00:[facility]:00 00:00:00 HOMEWOOD [id number] [facility], [id number] Memor ia [address] [id number] l [address] ([address], V/SA) [place] [address] 2020-07-19 2020-07-19 Inpatient [facility] [id number] 00:00:00 00:00:00 HOMEWOOD [id number] [facility], [id number] Memor ia [address] [id number] l [address] ([address], V/SA) [place] [address] 2020-07-05 2020-07-05 OTHER E SANALETA, [facility] [id number] 02:42:00 05:00:00 [facility] [address] ([address], V/SA) [place], [place] [address] 2020-07-05 2020-07-05 Inpatient [facility] [id number] [facility] St 00:00:00 00:00:00 HOMEWOOD [id number] [facility], [id number] Memor ia [address] [id number] l [address] ([address], V/SA) [place] [address] 2020-07-05 2020-07-05 Inpatient [facility] [id number] [facility] St 00:00:00 00:00:00 HOMEWOOD [id number] [facility], [id number] Mem[address] ia [address] [id number] l [address] ([address], V/SA) [place], [place] [address] 2020-06-10 2020-06-10 (TEL) [facility] [id number] Co mmon 00:00:00 00:00:00 [facility] - [facility] 2020-06-07 2020-06-07 Inpatient 1 YURY, [facility] [id number] 12:56:00 19:04:00 REHAN [facility] [address] ([address], V/SA) [place] [address] 2020-06-07 2020-06-07 [facility] [facility] 5603 [id number] [facility] 00:[facility] 00:00:00 HOMEWOOD [id number] Gutierrez [facility], [phone] [facility] [id number] ([address]F/LI [address], V/[place]) [place] [address] 2020-05-31 2020-05-31 Inpatient E COTTON, [facility] [place] [id number] 09:31:00 14:13:00 [facility] [address]F/LI [address], V/SA) [place] [address] 2020-05-10 2020-05-10 Outpatient STLMLC STLMLC [id number] Common 00:00:00 00:00:00 [facility] 2020-05-09 2020-05-09 Outpatient STLMLC STLMLC [id number] Common 00:00:00 00:00:00 [facility] 2020-05-05 2020-05-05 Outpatient STLMLC STLMLC [id number] Common 00:00:00 00:00:00 [facility] 2020-05-02 2020-05-02 Outpatient STLMLC STLMLC [id number] Common 00:00:00 00:00:00 [facility] 2020-05-02 2020-05-02 Outpatient STLMLC STLMLC [id number] Common 00:00:00 00:00:00 [facility] 2020-04-29 2020-04-29 Outpatient STLMLC STLMLC [id number] Common 00:00:00 00:00:00 [facility] 2020-04-25 2020-04-25 LEFT LOWER E [facility] [place] [id number] 16:46:00 21:30:00 [facility] [address], V/SA) [place] [address] 2020-04-22 2020-04-22 Outpatient STLMLC STLMLC [id number] Common 00:00:00 00:00:00 [facility] 2020-04-20 2020-04-20 PROC&TX [facility] [place] [id number] 15:39:00 16:03:00 [place] [facility] [place], [facility] OUT PT [address] (TIERA/YUKI WEBB, V/SA) [place]ÁN ROS[place] [address] 2020-04-20 2020-04-20 Outpatient STLMLC STLMLC [id number] Common 00:00:00 00:00:00 [facility] 2020-04-20 2020-04-20 Outpatient STLMLC STLMLC [id number] Common 00:00:00 00:00:00 [facility] 2020-04-15 2020-04-15 Outpatient STLMLC STLMLC [id number] Common 00:00:00 00:00:00 [facility] 2020-04-13 2020-04-13 Outpatient STLMLC STLMLC [id number] Common 00:00:00 00:00:00 [facility] 2020-04-12 2020-04-12 Outpatient STLMLC STLMLC [id number] Common 00:00:00 00:00:00 [facility] 2020-04-11 2020-04-11 Outpatient STLMLC STLMLC [id number] Common 00:00:00 00:00:00 [facility] 2020-04-08 2020-04-08 Outpatient STLMLC STLMLC [id number] Common 00:00:00 00:00:00 [facility] 2020-04-06 2020-04-06 Outpatient STLMLC STLMLC [id number] Common 00:00:00 00:00:00 [facility] 2020-04-04 2020-04-04 Outpatient STLMLC STLMLC [id number] Common 00:00:00 00:00:00 [facility] 2020-03-31 2020-03-31 Outpatient STLMLC STLMLC [id number] Common 00:00:00 00:00:00 [facility] 2020-03-29 2020-03-29 Outpatient GEOVANI BLAS MDA MDA [id number] MD 00:00:00 00:00:00 PRAVEEN payton 2020-03-29 2020-03-29 Outpatient STLMLC STLMLC [id number] Common 00:00:00 00:00:00 [facility] 2020-03-28 2020-03-28 Outpatient STLMLC STLMLC [id number] Common 00:00:00 00:00:00 [facility] 2020-03-22 2020-03-22 Outpatient STLMLC STLMLC [id number] Common 00:00:00 00:00:00 [facility] 2020-03-21 2020-03-21 Outpatient STLMLC STLMLC [id number] Common 00:00:00 00:00:00 [facility] 2020-03-20 2020-03-20 FEDE COTTON, [facility] [place] [id number] 17:08:00 22:56:00 ABDOMINAL REHAN [facility] PAIN [facility] UNSPECIFIE [address] (LUF/LI AVE, V/[place]) [place] [address] 2020-03-14 2020-03-17 CELLULITIS E RIVERA, [facility] [place] [id number] 14:54:00 11:30:00 OF GNOSTICISM [facility] ABDOMINAL [facility] a WALL [address]ef[address] ([address]F/LI A[address], V/SA) [place] [address] 2020-03-03 2020-03-03 Outpatient [facility] [id number] Common 13:33:00 13:33:00 Clinics [facility] 2020-03-02 2020-03-02 ALEJANDRA WOLFE, [facility] [place] [facility] [id number] 05:58:00 15:35:00 PERITON LIZBETH [facility] POSTINFECT [address] ([address]F/LI A[address], V/SA) [place] [address] 2020-03-02 2020-03-02 Outpatient STLMLC STLMLC [id number] Common 00:00:00 00:00:00 [facility] 2020-03-01 2020-03-01 Outpatient [facility] [id number] Common 09:15:00 09:15:00 Clinics [facility] 2020-02-29 2020-02-29 Outpatient [facility] [id number] Common 09:30:00 09:30:00 Clinics [facility] 2020-02-25 2020-02-27 LOWER E COTTON, [facility] [id number] [facility] St 13:21:00 12:09:00 ABDOMINAL REHAN [facility] [place] [address] ([address]F/LI AVE, V/[place]) [place] [address] 2020-02-25 2020-02-25 UNSPECIFIE E RODRICK, [facility] [id number] [facility] St 00:40:00 05:00:00 D JUAN [facility] [place] [address] ([address]F/LI A[address], V/[place]) [place] [address] 2020-01-25 2020-01-25 LOW BACK 1 YURY, [facility] [id number] [facility] St 11:28:00 13:15:00 PAIN REHAN [facility] [address] ([address], V/SA) [place] [address] 2020-01-18 2020-01-18 Outpatient [facility] [id number] Common 11:45:00 11:45:00 Clinics [facility] 2019-12-09 2019-12-09 OTHER E [facility] [id number] [facility] St 03:03:00 05:08:00 CHRONIC [facility] [place] [address] ([address], V/[place]) [place] [address] 2019-11-24 2019-11-24 UNSPECIFIE E [facility] [id number] 00:31:00 05:30:00 D [facility] [place] [address] ([address]F/LI [address], V/[place]) [place] [address] 2019-10-07 2019-10-07 RIGHT 1 YURY, [facility] [id number] 20:35:00 23:10:00 LOWER [facility] QUADRANT [place] [address] ([address], V/SA) [place] [address] 2019-09-20 2019-09-20 RIGHT 1 COTTON, [facility] [id number] 00:33:00 04:23:00 LOWER [facility] QUADRANT [place], [facility] PAIN [address] ([address], V/[place]) [place] [address] 2019-08-17 2019-08-17 UNSPECIFIE 1 MYNORMAYA, [facility] [id number] 02:18:00 04:45:00 D GNOSTICISM [facility] [place]BDOMINAL [place], [facility] a PAIN [address] ([address], V/[place]) [place] [address] 2019-04-22 2019-04-22 [facility] [id number] Common 12:03:00 12:03:00 [facility] 2019-04-14 2019-04-14 [facility] [id number] Common 16:12:00 16:12:00 [facility] 2019-04-06 2019-04-06 [facility] [id number] Common 12:16:00 12:16:00 [facility] 2019-03-31 2019-03-31 [facility] [id number] Common 14:00:00 14:00:00 [facility] 2018-12-07 2018-12-07 UNSPECIFIE 1 QUINTIN BRITO [facility] [id number] [facility] 01:06:00 04:45:00 D OVARIAN HOMEWOOD Luke s CYST RIGHT [place] SIDE [address] ([address], V/[place]) [place] [address] 2018-10-29 2018-10-29 N-PRSS CHR BLAKESTAChin, [facility] [id number] [facility] 06:59:00 23:59:00 ULCR SKIN MIKY [facility] [address] ([address], V/[place]) [place] [address] 2018-10-22 2018-10-22 N-PRSS CHR BLAKESTAD, [facility] [id number] [facility] St 07:20:00 23:59:00 ULCR SKIN MIKY [facility] [address] ([address], V/[place]) [place] [address] 2018-10-15 2018-10-15 N-PRSS CHR O BLAKESTAD, [facility] [id number] [facility] St 07:08:00 23:59:00 ULCR SKIN MIKY [facility] [address] ([address], V/[place]) [place] [address] 2018-09-30 2018-10-01 INFCT FOL 1 SHABNAM, [facility] [id number] [facility] St 18:46:00 01:05:00 PRC SUPF DIMAS [facility] SIT INIT [address] ([address], V/[place]) [place] [address] 2018-09-01 2018-09-01 OTH 1 WANDA, [facility] [id number] [facility] St 09:12:00 14:00:00 NONINFL CLEMENT [facility] D/O OVARY [facility] a TUBE&BRD [address] (LUF/LI A[address], V/[place]) [place] [address] 2018-05-13 2018-05-13 Inpatient 1 WANDA, [facility] [id number] 10:52:00 13:46:00 CLEMENT [facility] [address] ([address], V/[place]) [place] [address] 2017-12-24 2017-12-24 UNSPECIFIE 1 QUINTIN BRITO [facility] [id number] [facility] 07:51:00 13:52:00 D OVARIAN [facility] s CYST RIGHT [place], Memor ia SIDE [address] ([address], V/SA) [place] [address] 2017-06-20 2017-06-21 HYDRONPHRO 1 RODRICK, [facility] [id number] [facility] 23:01:00 03:55:00 S JUAN [facility] RENL&URETR [place], Memor ia L CALCUL [address] ([address]F/[address], V/[place]) [place] [address] 2017-05-13 2017-05-13 OTHER 3 MERLE, [facility] [id number] 15:40:00 23:59:00 FATIGUE ASA [facility]oria [address] ([address], V/[place]) [place] [address] Results Test Description Test Time Test Comments Results Result Comments Source CBC WITH DIFF 2023-03-19 05:26:55 Test Item Value Reference Range Interpretation Comme nts WBC (test code = 6690-2) 9.49 See_Comment [A utomated message] The system which ge nerated this result transmit michael reference range: 4.30 - 1 1.10 10*3/?L. The reference r bruce was not used to interpr et this result as normal/abnor mal. RBC (test code = 789-8) 4.09 See_Comment [Au tomated message] The system which ge nerated this result transmit michael reference range: 3.93 - 5 .25 10*6/?L. The reference r bruce was not used to interpr et this result as normal/abnor mal. HGB (test code = 718-7) 12.4 g/dL 11.6-15.0 HCT (test code = 4544-3) 36.7 % 35.7-45.2 MCV (test code = 787-2) 89.7 fL 80.6-95.5 MCH (test code = 785-6) 30.3 pg 25.9-32.8 MCHC (test code = 786-4) 33.8 g/dL 31.6-35.1 RDW-SD (test code = 18016-6) 43.0 fL 39.0-49.9 RDW-CV (test code = 788-0) 13.1 % 12.0-15.5 PLT (test code = 777-3) 273 See_Comment [Au tomated message] The system which ge nerated this result transmit michael reference range: 166 - 35 8 10*3/?L. The reference range was not used to interpret th is result as normal/abnormal . MPV (test code = 37837-5) 8.9 fL 9.5-12.9 L NRBC/100 WBC (test code = 0.0 See_Comment [ Automated message] The 7278596384) system which ge nerated this result transmit michael reference range: 0.0 - 10 .0 /100 WBCs. The reference r bruce was not used to interpr et this result as normal/abnor mal. NRBC x10^3 (test code = See_Comment [Au tomated message] The 5621174784) system which ge nerated this result transmit michael reference range: 10*3/?L. The reference range was not u sed to interpret this result as normal/abnormal . GRAN MAT (NEUT) % (test code 65.3 % = 770-8) IMM GRAN % (test code = 2.20 % 1451218415) LYMPH % (test code = 736-9) 25.8 % MONO % (test code = 5905-5) 6.2 % EOS % (test code = 713-8) 0.1 % BASO % (test code = 706-2) 0.4 % GRAN MAT x10^3(ANC) (test 6.19 10*3/uL 1.88-7.09 code = 7828289799) IMM GRAN x10^3 (test code = 0.21 10*3/uL 0.00-0.06 H 5764019340) LYMPH x10^3 (test code = 2.45 10*3/uL 1.32-3.29 731-0) MONO x10^3 (test code = 0.59 10*3/uL 0.33-0.92 742-7) EOS x10^3 (test code = 0.03-0.39 L 711-2) BASO x10^3 (test code = 0.04 10*3/uL 0.01-0.07 704-7) TOXIC CHANGES (test code = Present A 803-7) Lab Interpretation (test Abnormal code = 93409-9) [facility]. METABOLIC PANEL ([id number])2023-03-19 05:03:48 Test Item Value Reference Range Interpretation Comments NA (test code = 138 mmol/L 135-145 8471648641) K (test code = 4.5 mmol/L 3.5-5.0 6516766828) CL (test code = 107 mmol/L 98-108 2964505334) CO2 TOTAL (test code = 22 mmol/L 23-31 L 5214999806) AGAP (test code = 9 2-16 0716371064) BUN (test code = 19 mg/dL 7-23 1430243010) GLUCOSE (test code = 81 mg/dL 70-110 1193507036) CREATININE (test code = 0.57 mg/dL 0.50-1.04 6329849019) TOTAL BILI (test code = 0.3 mg/dL 0.1-1.7 8262719755) CALCIUM (test code = 9.4 mg/dL 8.6-10.6 2697863247) T PROTEIN (test code = 6.9 g/dL 6.3-8.2 2739774726) ALBUMIN (test code = 4.2 g/dL 3.5-5.0 3512141997) ALK PHOS (test code = 73 U/L 34-122 1936702719) ALTv (test code = 23 U/L 5-35 1742-6) AST(SGOT) (test code = 25 U/L 13-40 6993859193) eGFR (test code = 120.0 mL/min/1.73m2 3323849319) RENZO (test code = RENZO) Association of [...] tests). Lab Interpretation Abnormal (test code = 58624-8) [facility] 05:03:48 Test Item Value Reference Range Interpretation Comments MAGNESIUM (test code = 4691793632) 2.0 mg/dL 1.7-2.4 Lab Interpretation (test code = Normal 07299-9) [facility]OLIC PAN[facility] (27625)2023-03-19 05:03:48 Test Item Value Reference Range Interpretation Comments NA (test code = 138 mmol/L 135-145 8130903735) K (test code = 4.5 mmol/L 3.5-5.0 1818801886) CL (test code = 107 mmol/L 98-108 0255567213) CO2 TOTAL (test code = 22 mmol/L 23-31 L 3104057016) AGAP (test code = 9 2-16 4648777800) BUN (test code = 19 mg/dL 7-23 0124930465) GLUCOSE (test code = 81 mg/dL 70-110 4620740500) CREATININE (test code = 0.57 mg/dL 0.50-1.04 7795408276) TOTAL BILI (test code = 0.3 mg/dL 0.1-1.1 1436522986) CALCIUM (test code = 9.4 mg/dL 8.6-10.6 4670901354) T PROTEIN (test code = 6.9 g/dL 6.3-8.2 1167114635) ALBUMIN (test code = 4.2 g/dL 3.5-5.0 4462216635) ALK PHOS (test code = 73 U/L 34-122 6048368136) ALTv (test code = 23 U/L 5-35 1742-6) AST(SGOT) (test code = 25 U/L 13-40 0369893465) eGFR (test code = 120.0 mL/min/1.73m2 0975458799) RENZO (test code = RENZO) Association of [...] tests). Lab Interpretation Abnormal (test code = 74836-1) [facility] 05:03:48 Test Item Value Reference Range Interpretation Comments MAGNESIUM (test code = 8447440281) 2.0 mg/dL 1.7-2.4 Lab Interpretation (test code = Normal 94667-0) [facility] 05:03:27 Test Item Value Reference Range Interpretation Comments LIPASE (test code = 3027806770) 109 U/L 0-220 Lab Interpretation (test code = Normal 54804-4) [facility] 05:03:27 Test Item Value Reference Range Interpretation Comments LIPASE (test code = 8616059818) 109 U/L 0-220 Lab Interpretation (test code = Normal 56800-6) [facility]PELVIS [id number] 02:12:15Hx stone disease [facility]/SA)Name: LAUREN BETH : 1985 Sex: FEXAM: CT ABDOMEN/PELVIS W/CONTRASTHISTORY: Provided Indication: Right lower quadrant pain, n/v. hx ofhysterectomy, appendectomy, cholecystectomy, gastric sleeve, c- section, renalstonesCOMPARISON: Noneavailable.TECHNIQUE: Contiguous axial imaging from the level of the lung bases throughthe pubic symphysis was performed after the uncomplicated administration ofintravenous contrast. Coronal and sagittal reconstructions were obtained. AllCT scans at this facility use dose modulation, iterative reconstruction, and/orweight-based dosing when appropriate to reduce radiation dose to as low asreasonably ac hievable.FINDINGS:LOWER THORAX: The lungs bases are clear.LIVER: No focal hepatic lesions. Hepatic steatosis. Subcentimeter hypodensityin the right hepatic lobe may reflect a cyst. Normal contour.GALLBLADDER AND BILIARY TREE: Cholecystectomy.SPLEEN: Normal.PANCREAS: Normal.ADRENAL GLANDS: Normal.KIDNEYS: Normal enhancement and no hydronephrosis, Nonobstructing stones of theleft kidney.GI TRACT: Priorsleeve gastrectomy. Appendectomy. No obstruction.PERITONEUM AND RETROPERITONEUM/LYMPH NODES: UnremarkableVESSELS: Normal caliber abdominal aorta.PELVIS/BLADDER: Hysterectomy.BONES AND SOFT TISSUES: No suspicious lytic or sclerotic bony lesions.Subcutaneous emphysema in the right lower back soft tissues.IMPRESSION:No acute process identified to explain the patient's symptoms.Nonobstructing left nephrolithiasis.Subcutaneous emphysema in the right lower back soft tissues.Post surgical changes and other non-emergent findings as above.Electronically signed by: Daniele Velasquez 03/03/2023 2:08Dictated By: ALVINA VELASQUEZADate: 03/03/2023 02:11[facility] CHEM [id number] 01:29:00 Test Item Value Reference Range Interpretation Comments Sodium (test code = NA) 137 mmol/l 138-146 L Potassium (test code = K) 4.0 mmol/l 3.5-4.9 IONIZED CALCIUM (test code = ICA) 1.07 mmol/l 1.12-1.32 A Chloride (test code = CL) 106 mmol/l 98-109 Glucose (test code = GLU) 81 mg/dl 70-105 Creatinine (test code = CREA) 0.4 mg/dl 0.6-1.3 L Estimated Glomerular Filtration >60 Rate (eGFR) (test code = EGFR) BUN (test code = BUN) 17 mg/dl 6-17 CO2 (test code = CO2) 19.0 mmol/l 24.0-29.0 L [facility] URINALYSIS WITHOUT [id number] 01:22:00 Test Item Value Reference Range Interpretation Comments Color (test code = Yellow Lt. Yellow A UCOLR) Clarity (test code = Slightly Cloudy UCLAR) Glucose (test code = Negative Negative N UGLUC) Bilirubin (test code Negative Negative N = UBILI) Ketones (test code = Negative Negative N UKET) Specific [place] >=1.030 1.005-1.030 A (test code = USPGR) Blood (test code = Trace-intact Negative A UBLD) PH (test code = UPH) 5.5 4.5-8.0 A Protein (test code = 30 Negative A UPROT) Urobilinogen (test 0.2 See_Comment N [Automat ed code = U UROB) message] The system which generated this result transmit michael reference range : 0.2. The refere nce range was not u sed to interpret th is result as normal/abnormal . Nitrite (test code = Negative Negative N UNITR) Leukocyte Esterase Negative Negative N (test code = ULEUK) [facility] CBC WITH AUTO [id number] 01:20:00 Test Item Value Reference Range Interpretation Comments WBC (test code = WBC) 8.40 10\\S\\3/ul 4.80-10.80 RBC (test code = RBC) 3.90 10\\S\\6/ul 4.20-5.40 L Hemoglobin (test code = HGB) 11.9 gm/dl 12.0-14.0 L Hematocrit (test code = HCT) 34.9 % 37.0-47.0 L MCV (test code = MCV) 89.5 fL 81.0-99.0 MCH (test code = MCH) 30.5 pg 27.0-31.0 MCHC (test code = MCHC) 34.1 gm/dl 33.0-37.0 Platelet (test code = PLT) 237 10\\S\\3/ul 130-400 RDW (test code = RDWVC) 13.2 % 11.5-14.5 MPV (test code = MPV) 8.9 fL 7.4-10.4 A NE% (test code = NE) 58.0 % 42.0-75.0 LY% (test code = LY) 33.5 % 13.0-42.0 MO% (test code = MO) 5.7 % 4.0-14.0 EO% (test code = EO) 1.9 % 1.0-3.0 BA% (test code = BA) 0.4 % 1.0-3.0 L IG% (test code = IG%) 0.5 % 0.0-0.4 H [id number] 14:39:00 Test Item Value Reference Range Interpretation Comments SURGICAL (test code = SR) RUN DATE: 01/23/23 [facility] PAGE 1 RUN TIME: 1439 Specimen Inquiry RUN USER: INTERFACE FLASH ENT: LAURNE BETH LOC: AntoniMARLINE Segovia #: [id number] AGE/SX: 37/F ROOM: LALITHarjinder RE01/21/23REG DR: Lion Maxwell MD : 87 BED: 1 DIS: 01/23/23 STATUS: DIS IN TLOC: SPEC #: [id number]:[id number] RECD: 01/22/23 STATUS: KWAME REQ #: [id number] MELISSA: 01/21/23-[address]: Lion Maxwell MD ENTERED: 01/22/23-1021 SP TYPE: SURGICAL OTHR DR: Self Referred Maco Lewis MD, Stevenson C MDORDERED: [id number], ANATOMIC SPEC, SPECIMEN TRACK COPIES TO: Self Referred Maco Lewis MD [address] [place] [address] [place] [address] [facility] [address] [place] [address] Kory Erwin MD [address] [place] [address] PROCEDURES: [id number] (01/22/23) SPECIMEN TRACK (01/22/23) TISSUES: A. PELVIS - PELVIC WALL MASS FINAL DIAGNOSIS RIGHT PELVIC WALL MASS, EXCISION: - Benign ovary with corpus luteum. - Fibroadipose tissue with hemorrhage. GROSS DESCRIPTION Pelvic wall mass. Received is a segment of fibrous tissue with irregular shape measuring2.7 x 1.6 x 1.2 cm. The surface is inked blue. It is sectioned to reveal a firm fibrousarea measuring 0.7 x 0.5 x 0.5 cm. The remaining cut surface has a tubular cross section. It is entirely submitted as A1-A3. Technical tissue processing and slide preparation performed at [id number], [place] [address] CONTINUED ON NEXT PAGE RUN DATE: 01/23/23 [facility] PAGE 2 RUN TIME: 1439 Specimen Inquiry RUN USER: INTERFACE SPEC #: [id number]:[facility]:[id number] PATIENT: LAUREN BETH Zoltan #[id number] (Continued) ------- MICROSCOPIC DESCRIPTION Microscopic examination is performed and the findings are incorporated into the finaldiagnosis. Please see diagnosis for findings. ----- Signed SIGNATURE ON FILE Vidhi Brewster 01/23/23 1439 END OF REPORT CBC W/AUTO [id number] 07:07:00 Test Item Value Reference Range Interpretation Comments WHITE BLOOD CELL 6.3 K/mm3 3.5-11.0 N (test code = WBC) RED BLOOD CELL (test 3.81 M/mm3 4.70-6.10 L code = RBC) HEMOGLOBIN (test code 11.2 G/DL 10.4-14.9 N = HGB) HEMATOCRIT (test code 33.6 % 31.5-44.1 N = HCT) MEAN CELL VOLUME 88.2 Fl 84.5-98.6 N (test code = MCV) MEAN CELL HGB (test 29.4 pg 27.0-34.2 N code = MCH) MEAN CELL HGB 33.3 G/DL 31.5-34.0 N CONCETRATION (test code = MCHC) RED CELL DISTRIBUTION 13.6 SD 11.5-14.5 N WIDTH (test code = RDW) PLATELET COUNT (test 211 K/mm3 150-450 N code = PLT) MEAN PLATELET VOLUME 8.50 fL 7.0-10.5 N (test code = MPV) NEUTROPHIL % (test 54.9 % 40-76 code = NT%) IMMATURE GRANULOCYTE 0.5 % 0.0-5.0 N % (test code = IG%) LYMPHOCYTE % (test 35.4 % 20.5-51.1 N code = LY%) MONOCYTE % (test code 5.4 % 1.7-9.3 N = MO%) EOSINOPHIL % (test 3.2 % 0.0-6.0 N code = EO%) BASOPHIL % (test code 0.6 % 0.0-2.0 N = BA%) NUCLEATED RBC % (test 0.0 /100WBC% 0.0-1.0 N code = NRBC%) NEUTROPHIL # (test 3.5 K/mm3 1.8-7.6 N code = NT#) IMMATURE GRANULOCYTE 0.03 x10 3/uL 0.00-0.03 N # (test code = IG#) LYMPHOCYTE # (test 2.2 K/mm3 0.6-3.2 N code = LY#) MONOCYTE # (test code 0.3 K/mm3 0.3-1.1 N = MO#) EOSINOPHIL # (test 0.2 K/mm3 0.0-0.4 N code = EO#) BASOPHIL # (test code 0.0 K/mm3 0.0-0.1 N = BA#) NUCLEATED RBC # (test 0.0 K/mm3 0.0-0.1 N code = NRBC#) MANUAL DIFF REQUIRED NO DIFF/SCN CRITERIA SLIDE R QUEENIE (test code = MDIFF) CONSISTA NT WITH AUTO DIFFERENTI AL. BASIC METABOLIC [id number] 04:40:00 Test Item Value Reference Range Interpretation Comments SODIUM (test code 142 mmol/L 134-147 N = NA) POTASSIUM (test 3.8 mmol/L 3.4-5.0 N code = K) CHLORIDE (test 113 mmol/L 100-108 H code = CL) CARBON DIOXIDE 25 mmol/L 21-32 N (test code = CO2) ANION GAP (test 4.0 GAP calc 4.0-15.0 N code = GAP) GLUCOSE (test code 100 MG/DL 70-110 N = GLU) BLOOD UREA 9 MG/DL 7-18 N NITROGEN (test code = BUN) GLOMERULAR >=60 max >60 The Glomerular FILTRATION RATE estimate estGFR Filtratio n Rate is a (test code = GFR) calculated parameterbased on serum Creatinin e, patient age and sex. GFR valuesless than 60 mL/min/1.73 square meters are barbara cative ofChronic Kidne y Disease. Values less than 15 mL/min/1.73squa re meters indicate Kidney failure. The calculation for GFR is based on the CK D-EPI (2020) calculat ion. This formulais race indifferent and is the recommended formula for GFR by the National Kidney Foundation for Adults.The GFR will not calculate i f the sex is unknown or if thepatient's ag e is <18 years. CREATININE (test 0.5 MG/DL 0.6-1.0 L code = CREAT) CALCIUM (test code 7.1 MG/DL 8.5-10.1 L = CA) - CT ABD PELVIS [id number] 13:04:00 [facility] 1985 Sex: F Name: LAUREN BETH [facility] : 1985 Age/S: 37 / F [address] Unit #: [id number] Loc: [place] [address] Phys: Jessica Arias Acct: [id number] Dis Date: Status: REG ER PHONE #: [phone] Exam Date: 01/20/2023 1243 FAX #: Reason: RLQ pain EXAMS: CPT: [id number] CT ABD PELVIS W/CONT 01880 CT abdomen and pelvis with contrast 01/20/2023 CLINICAL INDICATION: Abdominal pain COMPARISON: 08/07/2021 LOCATION: W1 TECHNIQUE: Helical CT axial imaging of the abdomen and pelvis was performed following the administration of intravenous contrast. Coronal and sagittal reformatted images were obtained. One or more of the following dose reduction techniques were used: Automated exposure control, adjustment of the mA and/or kV according to patient size, and/or utilization of iterative reconstruction technique. FINDINGS: Lower thorax: Bibasilar linear atelectasis. Hepatobiliary: Unremarkable. Gallbladder: Surgically absent. Spleen: Unremarkable. Pancreas: Unremarkable. Kidneys: Unremarkable. Adrenals: Unremarkable. Lymph nodes: Unremarkable. Vessels: Unremarkable. Peritoneum/retroperitoneum: Periappendiceal fat stranding. Pelvic organs/bladder: Unremarkable. Bowel: Appendiceal dilation to 19 mm. Prior bariatric surgery. Bones/soft tissues: Chronic appearing degenerative changes in the skeleton. IMPRESSION: Appendicitis. Findings were discussed with Dr. Haque on 01/20/2023 at 1300. at 1304 Reported and signed by: Bobby Flores M.D. PAGE 1 Signed Report (CONTINUED) Name: LAUREN BETH [facility] : 1985 Age/S: 37 / F [address] Unit #: [id number] Loc: [place] [address] Phys: Jessica Arias Acct: [id number] Dis Date: Status: REG ER PHONE #: [phone] Exam Date: 01/20/2023 1247 FAX #: Reason: RLQ pain EXAMS: CPT: [id number] CT ABD PELVIS W/CONT 61391 (Continued) CC: Maco Lewis MD; Jeison Haque DO; Jessica MUNOZ Technologist:RT Basilia(R) CTDI: DLP: Trnscb Date/Time: 01/20/2023 (1304) [email or web address] Orig Print D/T: S: 01/20/2023 (6267) PAGE 2 Signed ReportCOMPREHENSIVE METABOLIC [id number] 12:28:00 Test Item Value Reference Range Interpretation Comments SODIUM (test code 139 mmol/L 134-147 N = NA) POTASSIUM (test 4.7 mmol/L 3.4-5.0 N code = K) CHLORIDE (test 109 mmol/L 100-108 H code = CL) CARBON DIOXIDE 24 mmol/L 21-32 N (test code = CO2) ANION GAP (test 6.0 GAP calc 4.0-15.0 N code = GAP) GLUCOSE (test code 85 MG/DL 70-110 N = GLU) BLOOD UREA 12 MG/DL 7-18 N NITROGEN (test code = BUN) GLOMERULAR >=60 max >60 The Glomerular FILTRATION RATE estimate estGFR Filtratio n Rate is a (test code = GFR) calculated parameterbased on serum Creatinin e, patient age and sex. GFR valuesless than 60 mL/min/1.73 square meters are barbara cative ofChronic Kidne y Disease. Values less than 15 mL/min/1.73squa re meters indicate Kidney failure. The calculation for GFR is based on the CK D-EPI (2020) calculat ion. This formulais race indifferent and is the recommended formula for GFR by the National Kidney Foundation for Adults.The GFR will not calculate i f the sex is unknown or if thepatient's ag e is <18 years. CREATININE (test 0.6 MG/DL 0.6-1.0 N code = CREAT) TOTAL PROTEIN 7.1 G/DL 6.4-8.2 N (test code = PROT) ALBUMIN (test code 3.3 G/DL 3.4-5.0 L = ALB) GLOBULIN (test 3.8 GM/dL code = GLOB) ALBUMIN/GLOBULIN 0.9 RATIO 1.2-2.2 L RATIO (test code = A/G) CALCIUM (test code 8.5 MG/DL 8.5-10.1 N = CA) BILIRUBIN TOTAL 0.40 MG/DL 0.2-1.2 N (test code = BILT) SGOT/AST (test 33 Unit/L 15-37 N code = AST) SGPT/ALT (test 22 Unit/L 12-78 N code = ALT) ALKALINE 82 Unit/L 45-117 N PHOSPHATASE TOTAL (test code = ALKP) HCG SERUM [id number] 12:23:00 Test Item Value Reference Range Interpretation Comments HCG SERUM QUAL (test SERUM NEGATIVE SCREEN NEGATIVE code = HCGQL) UA RFLX MICR CULT IF [id number] 11:58:00 Test Item Value Reference Range Interpretation Comments UA COLOR (test code = COLU) STRAW discript YEL/STRAW UA APPEARANCE (test code = CLEAR discript CLEAR APPU) UA GLUCOSE DIPSTICK (test NEGATIVE mg/dL NEG code = DGLUU) UA BILIRUBIN DIPSTICK (test NEGATIVE mg/dL NEG code = BILU) UA KETONE DIPSTICK (test NEGATIVE mg/dL NEG code = KETU) UA SPECIFIC GRAVITY (test 1.010 SG 1.005-1.030 code = SGU) UA BLOOD DIPSTICK (test NEGATIVE mg/DL NEG code = SARA) UA PH DIPSTICK (test code = 5.5 pH UNITS 5.0-7.0 LORETTA) UA PROTEIN DIPSTICK (test NEGATIVE mg/dL NEG code = PROU) UA UROBILINIOGEN DIPSTICK 0.2 mg/dL <2.0 (test code = URO) UA NITRITE DIPSTICK (test NEGATIVE SCREEN NEG code = ISAAK) UA LEUKOCYTE ESTERASE NEGATIVE Leuk/mcL NEGATIVE DIPSTICK (test code = LEUU) Indication for culture: Flank PainSOURCE OF URINE: CLEAN CATCHCBC W/AUTO DIFF 2023-01-20 11:55:00 Test Item Value Reference Range Interpretation Comments WHITE BLOOD CELL (test code = 7.3 K/mm3 3.5-11.0 N WBC) RED BLOOD CELL (test code = 4.36 M/mm3 4.70-6.10 L RBC) HEMOGLOBIN (test code = HGB) 12.8 G/DL 10.4-14.9 N HEMATOCRIT (test code = HCT) 37.5 % 31.5-44.1 N MEAN CELL VOLUME (test code = 86.0 Fl 84.5-98.6 N MCV) MEAN CELL HGB (test code = MCH) 29.4 pg 27.0-34.2 N MEAN CELL HGB CONCETRATION 34.1 G/DL 31.5-34.0 H (test code = MCHC) RED CELL DISTRIBUTION WIDTH 13.4 SD 11.5-14.5 N (test code = RDW) PLATELET COUNT (test code = 284 K/mm3 150-450 N PLT) MEAN PLATELET VOLUME (test code 9.60 fL 7.0-10.5 N = MPV) NEUTROPHIL % (test code = NT%) 64.1 % 40-76 N IMMATURE GRANULOCYTE % (test 0.7 % 0.0-5.0 N code = IG%) LYMPHOCYTE % (test code = LY%) 26.4 % 20.5-51.1 N MONOCYTE % (test code = MO%) 4.8 % 1.7-9.3 N EOSINOPHIL % (test code = EO%) 3.6 % 0.0-6.0 N BASOPHIL % (test code = BA%) 0.4 % 0.0-2.0 N NUCLEATED RBC % (test code = 0.0 /100WBC% 0.0-1.0 N NRBC%) NEUTROPHIL # (test code = NT#) 4.7 K/mm3 1.8-7.6 N IMMATURE GRANULOCYTE # (test 0.05 x10 3/uL 0.00-0.03 H code = IG#) LYMPHOCYTE # (test code = LY#) 1.9 K/mm3 0.6-3.2 N MONOCYTE # (test code = MO#) 0.4 K/mm3 0.3-1.1 N EOSINOPHIL # (test code = EO#) 0.3 K/mm3 0.0-0.4 N BASOPHIL # (test code = BA#) 0.0 K/mm3 0.0-0.1 N NUCLEATED RBC # (test code = 0.0 K/mm3 0.0-0.1 N NRBC#) MANUAL DIFF REQUIRED (test code NO DIFF/SCN CRITERIA = MDIFF) COMP. METABOLIC PANEL (87084)2022-12-16 23:24:15 Test Item Value Reference Range Interpretation Comments NA (test code = 140 mmol/L 135-145 6077529701) K (test code = 4.6 mmol/L 3.5-5.0 5705291908) CL (test code = 108 mmol/L 98-108 0760291098) CO2 TOTAL (test code = 18 mmol/L 23-31 L 0536147929) AGAP (test code = 14 2-16 9911665166) BUN (test code = 9 mg/dL 7-23 0496744969) GLUCOSE (test code = 83 mg/dL 70-110 5620872648) CREATININE (test code = 0.55 mg/dL 0.50-1.04 0898795643) TOTAL BILI (test code = 1.0 mg/dL 0.1-1.0 1342478865) CALCIUM (test code = 9.3 mg/dL 8.6-10.6 4253395126) T PROTEIN (test code = 8.2 g/dL 6.3-8.2 6863174825) ALBUMIN (test code = 4.8 g/dL 3.5-5.0 2113575247) ALK PHOS (test code = 89 U/L 34-122 0494737675) ALTv (test code = 21 U/L 5-35 1742-6) AST(SGOT) (test code = 34 U/L 13-40 4389428682) eGFR (test code = 125.1 mL/min/1.73m2 0584341111) RENZO (test code = RENZO) Association of [...] tests). Lab Interpretation Abnormal (test code = 20777-7) [facility] [id number] 23:22:04 Test Item Value Reference Range Interpretation Comments PREG SERUM (test code Negative = 2582197795) RENZO (test code = RENZO) Less than 10 IU/L. ?If low titer or ectopic is suspected, resubmit specimen in 48-72 hours. [facility] WITH [id number] 22:51:12 Test Item Value Reference Range Interpretation Comments WBC (test code = 12.44 See_Comment H [Automated 0690-2) message] The sy stem which generated this result transmitted reference range : 4.30 - 11.10 10*3/?L. The reference range was not used to interpret this result as normal/abnormal . RBC (test code = 4.69 See_Comment [Automated 829-8) message] The sy stem which generated this result transmitted reference range : 3.93 - 5.25 10*6/?L. The reference range was not used to interpret this result as normal/abnormal . HGB (test code = 14.1 g/dL 11.6-15.0 718-7) HCT (test code = 41.0 % 35.7-45.2 4544-3) MCV (test code = 87.4 fL 80.6-95.5 787-2) MCH (test code = 30.1 pg 25.9-32.8 785-6) MCHC (test code = 34.4 g/dL 31.6-35.1 786-4) RDW-SD (test code = 43.8 fL 39.0-49.9 77606-5) RDW-CV (test code = 13.9 % 12.0-15.5 788-0) PLT (test code = 316 See_Comment [Automated 697-3) message] The sy stem which generated this result transmitted reference range : 166 - 358 10*3/ ?L. The reference r bruce was not used to interpret this result as normal/abnormal . MPV (test code = 8.9 fL 9.5-12.9 L 17865-4) NRBC/100 WBC (test 0.0 See_Comment [Automat ed code = 0176189505) message] The system which generated this result transmitted reference range : 0.0 - 10.0 /100 WBCs. The refer ence range was not u sed to interpret th is result as normal/abnormal . NRBC x10^3 (test code See_Comment [Auto mated = 4771126665) message] The s ystem which generated this result transmitted reference range : 10*3/?L. The reference range was not used to interpret this result as normal/abnormal . GRAN MAT (NEUT) % 75.8 % (test code = 770-8) IMM GRAN % (test code 0.70 % = 6139996414) LYMPH % (test code = 16.5 % 736-9) MONO % (test code = 5.1 % 5905-5) EOS % (test code = 1.6 % 713-8) BASO % (test code = 0.3 % 706-2) GRAN MAT x10^3(ANC) 9.42 10*3/uL 1.88-7.09 H (test code = 5290257940) IMM GRAN x10^3 (test 0.09 10*3/uL 0.00-0.06 H code = 2701068434) LYMPH x10^3 (test code 2.05 10*3/uL 1.32-3.29 = 731-0) MONO x10^3 (test code 0.64 10*3/uL 0.33-0.92 = 742-7) EOS x10^3 (test code = 0.20 10*3/uL 0.03-0.39 711-2) BASO x10^3 (test code 0.04 10*3/uL 0.01-0.07 = 704-7) Lab Interpretation Abnormal (test code = 78694-3) [facility] [id number] 04:40:00 Test Item Value Reference Range Interpretation Comments POCT PREG (test code = 1605) Negative On board controls acceptable with Yes C Line (test code = 3574) POCT PREG LOT # (test code = 3575) 832419 POCT PREG TEST DATE (test 02/06/2024 code = 3576) Lab Interpretation (test code = Normal 82231-3) [facility]. METABOLIC PANEL (60074)2022-10-26 04:29:54 Test Item Value Reference Range Interpretation Comments NA (test code = 138 mmol/L 135-145 6459847682) K (test code = 4.0 mmol/L 3.5-5.0 3800757864) CL (test code = 110 mmol/L 98-108 H 1820119970) CO2 TOTAL (test code = 19 mmol/L 23-31 L 6536958039) AGAP (test code = 9 2-16 5060516838) BUN (test code = 13 mg/dL 7-23 7125266357) GLUCOSE (test code = 155 mg/dL 70-110 H 6552896436) CREATININE (test code = 0.84 mg/dL 0.50-1.04 0828297189) TOTAL BILI (test code = 0.3 mg/dL 0.1-1.1 2301370449) CALCIUM (test code = 8.7 mg/dL 8.6-10.6 4897025274) T PROTEIN (test code = 6.6 g/dL 6.3-8.2 2506940037) ALBUMIN (test code = 4.1 g/dL 3.5-5.0 9570533854) ALK PHOS (test code = 79 U/L 34-122 7908803718) ALTv (test code = 24 U/L 5-35 1742-6) AST(SGOT) (test code = 24 U/L 13-40 6685880528) eGFR (test code = 76.7 mL/min/1.73m2 7979869585) RENZO (test code = RENZO) Association of [...] tests). Lab Interpretation Abnormal (test code = 32128-8) [facility] 04:29:14 Test Item Value Reference Range Interpretation Comments LIPASE (test code = 7200964291) 96 U/L 0-220 Lab Interpretation (test code = Normal 59043-4) [facility] WITH [id number] 04:16:10 Test Item Value Reference Range Interpretation Comments WBC (test code = 10.69 See_Comment [Automated 6601-2) message] The sy stem which generated this result transmitted reference range : 4.30 - 11.10 10*3/?L. The reference range was not used to interpret this result as normal/abnormal . RBC (test code = 4.25 See_Comment [Automated 614-8) message] The sy stem which generated this [...] RDW-SD (test code = 41.8 fL 39.0-49.9 07738-7) RDW-CV (test code = 13.0 % 12.0-15.5 788-0) PLT (test code = 305 See_Comment [Automated 777-3) message] The sy stem which generated this result transmitted reference range : 166 - 358 10*3/ ?L. The reference r bruce was not used to interpret this result as normal/abnormal . MPV (test code = 9.1 fL 9.5-12.9 L 95647-1) NRBC/100 WBC (test 0.0 See_Comment [Automat ed code = 2188746270) message] The system which generated this result transmitted reference range : 0.0 - 10.0 /100 WBCs. The refer ence range was not u sed to interpret th is result as normal/abnormal . NRBC x10^3 (test code See_Comment [Auto mated = 8225148944) message] The s ystem which generated this result transmitted reference range : 10*3/?L. The reference range was not used to interpret this result as normal/abnormal . GRAN MAT (NEUT) % 55.4 % (test code = 770-8) IMM GRAN % (test code 0.80 % = 8455388927) LYMPH % (test code = 33.2 % 736-9) MONO % (test code = 4.2 % 5905-5) EOS % (test code = 5.8 % 713-8) BASO % (test code = 0.6 % 706-2) GRAN MAT x10^3(ANC) 5.92 10*3/uL 1.88-7.09 (test code = 1063416746) IMM GRAN x10^3 (test 0.09 10*3/uL 0.00-0.06 H code = 6374811316) LYMPH x10^3 (test code 3.55 10*3/uL 1.32-3.29 H = 731-0) MONO x10^3 (test code 0.45 10*3/uL 0.33-0.92 = 742-7) EOS x10^3 (test code = 0.62 10*3/uL 0.03-0.39 H 711-2) BASO x10^3 (test code 0.06 10*3/uL 0.01-0.07 = 704-7) Lab Interpretation Abnormal (test code = 75304-2) [facility] SARS-COV-2 ANTIGEN (BINAX NOW)2022-06-13 23:43:00 Test Item Value Reference Range Interpretation Comments POCT SARS-COV-2 ANTIGEN (test code = Positive Not Detected A 88087-5) On board controls acceptable with C Yes Line (test code = 3574) Lab Interpretation (test code = Abnormal 24999-5) [facility]- [facility] SHOULDER 2 + V [id number] 16:42:00 [facility] 1985 Sex: F Patient Name: LAUREN BETH Unit No: [id number] EXAMS: CPT CODE: [id number] XR SHOULDER 2 + [place] [address] Left shoulder 3 views COMMENT: There is no evidence for fracture or subluxation. No focal bony lesions are seen. at 1642 Reported and signed by: Angelo Hardin MD CC: Truman Quintero MD Technologist: Jeannette Garcia RT.(R) TranscribedD/ (1642) tMEDL [facility] NAME: LAUREN BETH [address] [facility] [address] PHYS: Truman Alfaro MD : 1985 AGE: 36 SEX: F [place], [place] [address] : JOHNNIE PHONE #: [phone] EXAM DATE: 04/23/2022 STATUS: DEP ER FAX #: [phone] RAD #: D/C DT PAGE 1 Signed Report Patient Name: LAUREN BETH Unit No: [id number] EXAMS: CPT CODE: [id number] XR SHOULDER 2 + [place] LT [address] (Continued) Orig Print D/T: S: 04/23/2022 (1645) [facility] NAME: LAUREN BETH [address] [facility] PHYS: Truman Alfaro MD : 1985 AGE: 36 SEX: F [place], [place] [address] LOC: JOHNNIE PHONE #: [phone] EXAM DATE: 04/23/2022TATUS: DEP ER FAX #: [phone] RAD #: D/C DT PAGE 2 Signed ReportCOMP. METABOLIC PANEL (87409)2022-02-19 14:56:05 Test Item Value Reference Range Interpretation Comments NA (test code = 137 mmol/L 135-145 1972216926) K (test code = 4.2 mmol/L 3.5-5 8178626817) CL (test code = 108 mmol/L 98-108 3016635549) CO2 TOTAL (test code = 19 mmol/L 23-31 L 9739208233) AGAP (test code = 2-16 6423594338) BUN (test code = 14 mg/dL 7-23 4781887682) GLUCOSE (test code = 133 mg/dL 70-110 H 4065209443) CREATININE (test code = 0.56 mg/dL 0.5-1.04 8757041295) TOTAL BILI (test code = 0.4 mg/dL 0.1-1.0 4932216180) CALCIUM (test code = 8.9 mg/dL 8.6-10.6 2631415991) T PROTEIN (test code = 6.5 g/dL 6.3-8.2 0647737886) ALBUMIN (test code = 4.0 g/dL 3.5-5 0569144523) ALK PHOS (test code = 84 U/L 34-122 7486065365) ALTv (test code = 23 U/L 5-35 1742-6) AST(SGOT) (test code = 24 U/L 13-40 3022867328) eGFR (test code = mL/min/1.73m2 2934293386) RENZO (test code = RENZO) Association of [...] tests). Lab Interpretation Abnormal (test code = 77484-2) [facility] 14:55:44 Test Item Value Reference Range Interpretation Comments LIPASE (test code = 3343574057) 81 U/L 0-220 Lab Interpretation (test code = Normal 10312-6) [facility] WITH [id number] 14:36:26 Test Item Value Reference Range Interpretation Comments WBC (test code = See_Comment [Automated 4690-2) message] The sy stem which generated this [...] RDW-SD (test code = 43.9 fL 39-49.9 99005-7) RDW-CV (test code = 13.7 % 12-15.5 788-0) PLT (test code = See_Comment [Automated 777-3) message] The sy stem which generated this result transmitted reference range : 166 - 358 10*3/ ?L. The reference r bruce was not used to interpret this result as normal/abnormal . MPV (test code = 8.5 fL 9.5-12.9 L 88155-7) NRBC/100 WBC (test See_Comment [Automat ed code = 4849223865) message] The system which generated this result transmitted reference range : 0.0 - 10.0 /100 WBCs. The refer ence range was not u sed to interpret th is result as normal/abnormal . NRBC x10^3 (test code See_Comment [Auto mated = 1750689147) message] The s ystem which generated this result transmitted reference range : 10*3/?L. The reference range was not used to interpret this result as normal/abnormal . GRAN MAT (NEUT) % 58.7 % (test code = 770-8) IMM GRAN % (test code 1.10 % = 1358297949) LYMPH % (test code = 31.6 % 736-9) MONO % (test code = 6.8 % 5905-5) EOS % (test code = 1.4 % 713-8) BASO % (test code = 0.4 % 706-2) GRAN MAT x10^3(ANC) 3.30 10*3/uL 1.88-7.09 (test code = 9373327409) IMM GRAN x10^3 (test 0.06 10*3/uL 0-0.06 code = 7036353120) LYMPH x10^3 (test code 1.77 10*3/uL 1.32-3.29 = 731-0) MONO x10^3 (test code 0.38 10*3/uL 0.33-0.92 = 742-7) EOS x10^3 (test code = 0.08 10*3/uL 0.03-0.39 711-2) BASO x10^3 (test code 0.01-0.07 = 704-7) Lab Interpretation Abnormal (test code = 90849-7) [facility] [id number] 22:58:14 Test Item Value Reference Range Interpretation Comments POCT Molecular FluA (test code = Negative Negative 82203-3) POCT Molecular FluB (test code = Negative Negative 36742-4) Lab Interpretation (test code = Normal 21913-3) [facility] PANEL (LIVER)2021-10-16 13:57:00 Test [...] (test code = 0.2 mg/dl 0.0-1.1 IBIL) [id number] 13:57:00 Test Item Value Reference Range Interpretation Comments Lipase (test code = LIPA) 114 U/L 73-393 STLMLAMYLASE, [id number] 13:57:00 Test Item Value Reference Range Interpretation Comments Amylase (test code = AMYL) 51 U/L 25-115 [facility] CHEM [id number] 22:45:00 Test Item Value Reference Range Interpretation [...] code = CO2) 22.1 mmol/l 24.0-29.0 L [facility] CBC WITH AUTO [id number] 22:43:00 Test Item Value Reference Range Interpretation [...] = IG%) 0.2 % 0.0-0.4 STLMLHEPATIC FUNCTION [id number] 13:03:00 Test Item Value Reference Range Interpretation [...] 96 Unit/L 45-117 N code = ALKP) [id number] 13:03:00 Test Item Value Reference Range Interpretation Comments LIPASE (test code = LIP) 83 Unit/L 114-286 L BASIC METABOLIC [id number] 13:03:00 Test Item Value Reference Range Interpretation [...] 8.5-10.1 N UA RFLX MICR CULT IF [id number] 12:44:00 Test Item Value Reference Range Interpretation [...] OF URINE: CLEAN CATCH- CT ABD PELVIS [id number] 12:27:00 [facility] 1985 Sex: F Name: LAUREN BETH [facility] : 1985 Age/S: 36 / F [address] Unit #: [id number]: Julián Holcomb [address] Phys: Marco Hilton NP Acct: [id number] Dis Date: Status: REG ER PHONE #: [phone] Exam Date: 08/07/2021 1223 FAX #: Reason: LLQ ABD PAIN EXAMS: CPT: [id number] CT ABD PELVIS W/CONT 03998 EXAM: CT ABDOMEN AND PELVIS WITH CONTRAST. [...] 1 Signed Report (CONTINUED) Name: LAUREN BETH [facility] : 1985 Age/S: 36 / F [address] [facility] [address] Unit #: [id number] Loc: [place] [address] Phys: Marco Hilton NP Acct: [id number] Dis Date: Status: REG ER PHONE #: [phone] Exam Date: 08/07/2021 1223 FAX #: Reason: LLQ ABD PAIN EXAMS: CPT: [id number] CT ABD PELVIS W/CONT 89177 <Continued> at 1227 Reported and signed by: Alma Cartwright M.D. CC: Olga Clements DO; Marco Hilton NP Technologist:Elmer Laguna, RT(R) CTDI: DLP: Trnscb Date/Time: 08/07/2021 (5751) 16 Orig Print D/T: S: 08/07/2021 (9690) PAGE 2 Signed ReportCBC W/AUTO [id number] 12:23:00 Test Item Value Reference Range Interpretation [...] contact the [facility] at [phone]. [id number] 12:37:00 Test Item Value Reference Range Interpretation [...] and management of c hronic kidney failure. [facility] [id number] 12:11:00 Test Item Value Reference Range Interpretation [...] after the clini felipa event. STLMLPT AND [id number] 12:09:00 Test Item Value Reference Range Interpretation Comments Protime (test code 9.5 seconds 9.5-12.1 = PT) INR (test code = 0.9 0.9-1.1 INR results are intended INR) ONLY to monitor Oral Anticoagulant t herapy in stablized patie nts. The INR Therapeutic Range is 2.0 - 3.0 Patie nts with a mechanical he art, the INR Range is 2. 5 - 3.5 [id number] 12:09:00 Test Item Value Reference Range Interpretation Comments aPTT (test code = PTT) 22.3 seconds 23.9-30.7 L [facility] CBC WITH AUTO [id number] 11:57:00 Test Item Value Reference Range Interpretation [...] 0.3 % 0.0-0.4 STLMLXR CHEST AP/PA 1 [id number] 11:33:32 [facility])Name: LAUREN BETH : 1985 Sex: FProcedure: XR CHEST AP/PA 1 VIEWOrder Date: 03/24/2021 10:57 AMOrdering Provider: REHAN Farrellinical Indication: [id number]: DyspneaComparison: September 30, 2018Findings:Cardiac size is normal.Pulmonary vasculature is normal.Mediastinal contour is normal.Aortic contour is normal.No acute infiltrates or effusions.There is no mass or pneumothorax.There is no evidence of active tuberculosis.There isno acute skeletal abnormality.Impression: Negative AP view of the chest.This final report was electronically signed by Dr Farzad Dewitt MD :28 AMDictated By: FARZAD DEWITTDate: :28STLMLCULTURE, [id number] 08:00:00Specimen: Urine SpecimensCollected: 03/10/2021 11:50 Status: Final [...] code = NEGATIVE NEGATIVE N UKET) Specific [place] 1.015 1.005-1.030 A (test code = USPGR) [...] Epithelial (test code = NSE) [facility] CBC WITH AUTO [id number] 12:10:00 Test Item Value Reference Range Interpretation [...] IG%) 0.8 % 0.0-0.[address] [facility] CHEM [id number] 12:08:00 Test Item Value Reference Range Interpretation [...] = CREA) 0.5 mg/dl 0.6-1.3 L STLMLCULTURE, [id number] 08:26:00Specimen: Urine SpecimensCollected: 02/23/2021 08:35 Status: Final Last Updated: 02/24/2021 08:26 CULTURE (Final) (Final) Many Mixed Body Gabriela Isolated No Pathogens IsolatedSTLMLCT ABDOMEN/PELVIS W/[id number] 11:40:43 [facility] ([facility]/)Name: LAUREN BETH : 1985 Sex: FProcedure: CT ABDOMEN/PELVIS W/CONTRASTOrder date: 02/23/2021 10:08 AMOrdering Provider: REHAN Farrellinical Indication: [id number]: Right lower quadrant painComparison: November 14, 2020Technique: [...] MD 111:35 AMDictated By: WILEY VELÁZQUEZDate: 02/23/2021 11:[id number] 10:44:00 Test Item Value Reference Range Interpretation Comments Lipase (test code = LIPA) 87 U/L 73-393 STLMLURINALYSIS WITH [id number] 08:58:00 Test Item Value Reference Range Interpretation Comments Color (test code = Light-Yellow UCOLR) Clarity (test code = Clear UCLAR) Glucose (test code = NEGATIVE NEGATIVE N UGLUC) Bilirubin (test code NEGATIVE NEGATIVE N = UBILI) Ketones (test code = NEGATIVE NEGATIVE N UKET) Specific [place] 1.020 1.005-1.030 A (test code = USPGR) [...] = SQEP) STLMLSTAT LAB CBC WITH AUTO [id number] 08:52:00 Test Item Value Reference Range Interpretation [...] (test code = IG%) 0.3 % 0.0-0.4 [facility] LAB CHEM [id number] 08:52:00 Test Item Value Reference Range Interpretation [...] (test code = CREA) 0.6 mg/dl 0.6-1.3 [facility] LAB CBC WITH AUTO [id number] 02:37:00 Test Item Value Reference Range Interpretation [...] A value of 55 was entered by [id number] on 01/10/2021 02:3 7 Lymphocytes (test 43 % 13-42 H No previou s value code = LYMPH) was reported. A value of 43 was entered by [id number] on 01/10/2021 02:3 7 Monocytes (test 1 % 4-14 L No previous value code = MONOS) was reported. A value of 1 was entered by [id number] on 01/10/2021 02:3 7 Basophils (test 1 % 0-1 No previous value code = BASO) was reported. A value of 1 was entered by [id number] on 01/10/2021 02:3 7 Normal Morphology Normal WBC RBC Normal RBC \\T\\ N No pre vious value (test code = NRCM) and Platelet WBC was repor michael. A Morphology Morphology,Normal value of N ormal WBC RBC and WBC RBC and Platelet Platelet Morphology Morphology was entered by [id number] on 01/10/2021 02:3 7 STLMLAMYLASE, [id number] 02:14:00 Test Item Value Reference Range Interpretation Comments Amylase (test code = AMYL) 46 U/L 25-115 [id number] 02:14:00 Test Item Value Reference Range Interpretation Comments Lipase (test code = LIPA) 115 U/L 73-393 STLMLURINALYSIS WITH [id number] 02:07:00 Test Item Value Reference Range Interpretation Comments Color (test code = Light-Yellow UCOLR) Clarity (test code = Cloudy UCLAR) Glucose (test code = NEGATIVE NEGATIVE N UGLUC) Bilirubin (test code NEGATIVE NEGATIVE N = UBILI) Ketones (test code = NEGATIVE NEGATIVE N UKET) Specific [place] 1.025 1.005-1.030 A (test code = USPGR) [...] SEEN A Epithelial (test code = NSE) [facility] [id number] 01:50:00 Test Item Value Reference Range Interpretation [...] 0.6 mg/dl 0.6-1.3 STLML- CT ABD PELVIS W/[id number] 03:46:00 [facility] 1985 Sex: F FAX: Annemarie Tesfaye [phone] [place]: St: REG Name: LAUREN BETH [facility] : 1985 Age/S: 35/F [address] Unit: [id number] Loc: [place] [address] Phys: Annemarie Tesfaye BIOINFORMATICIAN Acct: [id number] Dis Date: Status: REG ER PHONE #: [phone] Exam Date: 12/13/20205 FAX #: [phone] Reason: DIFFUSE ABD PAIN WORSE RLQ, HX APPY, ROSE EXAMS: CPT CODE: [id number] CT ABD PELVIS W/CONT 95989 AFTER HOURS SERVICE ON: 12/13/2020 3:44 AM [...] 1 Signed Report (CONTINUED) FAX: Annemarie Tesfaye [phone] [place]: St: REG------ Name: LAUREN BETH [facility] : 1985 Age/S: 35/F [address] Unit: [id number] Loc: [place] [address] Phys: Annemarie Tesfaye NP Acct: [id number] Dis Date: Status: REG ER PHONE #: [phone] ExamDate: 12/13/2020 7819 FAX #: [phone] Reason: DIFFUSE ABD PAIN WORSE RLQ, HX APPY, ROSE EXAMS:CPT CODE: [id number] CT ABD PELVIS W/CONT 79795 <Continued> CC: Annemarie Tesfaye BIOINFORMATICIAN Technologist: PAMELA KRISHNAMURTHY; Jessi Guillory; JAIRO SANCHEZ JR Trnscrd Dt/Tm: 12/13/2020 (0346) [email or web address] OrigPrint D/T: S: 12/13/2020 (0349 PAGE 2 Signed ReportCOMPREHENSIVE METABOLIC [id number] 03:32:00 Test Item Value Reference Range Interpretation [...] U/L 38-126 N (test code = ALKP) [id number] 03:32:00 Test Item Value Reference Range Interpretation Comments LIPASE (test code = LIP) 82 U/L 23-300 N BEDSIDE [id number] 03:24:00 Test Item Value Reference Range Interpretation Comments BEDSIDE CREATININE (test code = 0.60 mg/dL 0.51-1.19 N CREATBED) CBC W/AUTO [id number] 03:14:00 Test Item Value Reference Range Interpretation [...] 0.0-0.1 N UA RFLX MICR CULT IF [id number] 02:59:00 Test Item Value Reference Range Interpretation [...] OF URINE: VOIDEDSTAT LAB CBC WITH AUTO [id number] 15:12:00 Test Item Value Reference Range Interpretation [...] entered by [id number] on 12/12/2020 15:12 [facility][note 3] LAB CHEM [id number] 14:08:00 Test Item Value Reference Range Interpretation [...] 0.6-1.3 L [facility][note 3] LAB URINALYSIS WITHOUT [id number] 12:08:00 Test Item Value Reference Range Interpretation Comments Color (test code = Light-Yellow UCOLR) Clarity (test code = Cloudy UCLAR) Glucose (test code = NEGATIVE NEGATIVE N UGLUC) Bilirubin (test code NEGATIVE NEGATIVE N = UBILI) Ketones (test code = NEGATIVE NEGATIVE N UKET) Specific [place] 1.015 1.005-1.030 A (test code = USPGR) [...] NEGATIVE NEGATIVE N (test code = ULEUK) [facility]HEPAT[facility] FUN[facility] PANEL (LIVER)2020-11-21 08:43:00 Test Item Value [...] (test code = 0.4 mg/dl 0.0-1.1 IBIL) [facility]kinURINALYSIS WITH [id number] 08:31:00 Test Item Value Reference Range Interpretation Comments Color (test code = Light-Yellow UCOLR) Clarity (test code = Clear UCLAR) Glucose (test code = NEGATIVE NEGATIVE N UGLUC) Bilirubin (test code NEGATIVE NEGATIVE N = UBILI) Ketones (test code = NEGATIVE NEGATIVE N UKET) Specific [place] 1.020 1.005-1.030 A (test code = USPGR) [...] TNTC 0-10 A (test code = SQEP) [facility][note 3] LAB CHEM [id number] 08:27:00 Test Item Value Reference Range Interpretation [...] 0.6-1.3 L [facility][note 3] LAB CBC WITH AUTO [id number] 08:26:00 Test Item Value Reference Range Interpretation [...] (test code = IG%) 0.4 % 0.0-0.4 [facility]ufkinXR ABDOM[facility] 2 VIEWS FLAT / [id number] 08:18:50[facility] ([facility]/[place])Name: LAUREN BETH : 1985 Sex: FProcedure: XR ABDOMEN 2 VIEWS FLAT / UPRIGHTOrder Date: 11/21/2020 7:43 AMOrdering Provider: REHAN Farrellinical Indication: [id number]: Abdominal painComparison: Nov 14 2020Findings:Bowel gas pattern is non-obstructive. No pneumoperitoneum.There is moderate volume stool burden.Surgical clips in the right upper quadrant of the abdomen.Impression:Nonobstructive bowel gas pattern.This final reportwas electronically signed by Dr Silver Benitez MD :13 AMDictated By: GLORY BENITEZKDate: 11/21/2020 08:13[facility]PELVIS W/O CONTRAST 2020-11-14 14:11:31 [facility] (LUF/[facility]/[place])Name: LAUREN BETH : 1985 Sex: FProcedure: CT ABDOMEN/PELVIS W/O CONTRASTOrder Date: 11/14/2020 1:22 PMOrdering Provider: BILLY ACOSTA .Clinical Indication: [id number]: Right flank painComparison: Renal ultrasound November 08, [...] MD 12:05 PMDictated By: FARZAD DEWITTDate: 11/14/2020 14:05[facility] , [id number] 13:31:00 Test Item Value Reference Range Interpretation Comments (Urine) (test code = Negative PREGU) ONLY AVAILABLE 8A-12[facility] LAB CHEM [id number] 11:09:00 Test Item Value Reference Range Interpretation [...] 0.6-1.3 L [facility][note 3] LAB URINALYSIS WITHOUT [id number] 11:08:00 Test Item Value Reference Range Interpretation Comments Color (test code = Yellow Lt. Yellow A UCOLR) Clarity (test code = Clear UCLAR) Glucose (test code = Negative Negative N UGLUC) Bilirubin (test code Negative Negative N = UBILI) Ketones (test code = Negative Negative N UKET) Specific [place] 1.025 1.005-1.030 A (test code = USPGR) [...] Negative Negative N (test code = ULEUK) [facility]kin[facility] CBC WITH AUTO [id number] 11:05:00 Test Item Value Reference Range Interpretation [...] (test code = IG%) 0.4 % 0.0-0.4 [facility] HealthfkinCULTURE, [id number] 08:43:00Specimen: Urine SpecimensCollected: 11/08/2020 09:59 Status: Final Last Updated: 11/09/2020 08:43 CULTURE (Final) (Final) Few Mixed Body Gabriela Isolated No Pathogens [facility]olatedGrant [facility] RENAL & BLADDER (KIDNEYS)2020-11-08 12:00:28[facility] ([facility]/)Name: LAUREN BETH : 1985 Sex: FProcedure: US [...] AMDictated By: GLORY BENITEZKDate: 11/08/2020 11:54[facility]ODURINALYSIS WITH MICROSCOPIC 2020-11-08 10:58:00 Test Item Value Reference Range Interpretation Comments Color (test code = Yellow UCOLR) Clarity (test code = Clear UCLAR) Glucose (test code = NEGATIVE NEGATIVE N UGLUC) Bilirubin (test code = NEGATIVE NEGATIVE N UBILI) Ketones (test code = NEGATIVE NEGATIVE N UKET) Specific [place] (test 1.030 1.005-1.030 A code = USPGR) Blood (test code = NEGATIVE NEGATIVE N UBLD) PH (test code = UPH) 6.0 4.5-8.0 A Protein (test code = NEGATIVE NEGATIVE N UPROT) Urobilinogen (test code 0.2 See_Comment N [Au tomated message] = U UROB) The system [employer] generated this result transmitted ref erence range: [...] 51-74 0-10 A (test code = SQEP) [facility], [id number] 08:13:00ER 17Specimen: Urine SpecimensCollected: 11/01/2020 01:10 Status: Final Last Updated: 11/02/2020 08:13 (1) ER 17 CULTURE (Final) (Final) Few Mixed Body Gabriela Isolated No Pathogens IsolatedDivine [facility]ior Healthcare-LufkinXR ABD SERIES W/PA CXR 2020-11-01 03:48:37 [facility] ([facility]/SA)Name: LAUREN BETH : 1985 Sex: FPROCEDURE INFORMATION:Exam: [...] CDT.Dictated By: FILIPPO RAMOSDate: 11/01/2020 03:48[facility] HOME[facility]ODHEPATIC FUNCTION PANEL (LIVER)2020-11-01 02:14:00 Test Item Value [...] (test code = 0.1 mg/dl 0.0-1.1 IBIL) [address] LAB CHEM [id number] 01:57:00 Test Item Value Reference Range Interpretation [...] = CREA) 0.5 mg/dl 0.6-1.3 L ER [address] [place] [address]-LufkinURINALYSIS WITH [id number] 01:56:00 Test Item Value Reference Range Interpretation Comments Color (test code = Light-Yellow UCOLR) Clarity (test code = Clear UCLAR) Glucose (test code = 50 NEGATIVE A UGLUC) Bilirubin (test code NEGATIVE NEGATIVE N = UBILI) Ketones (test code = NEGATIVE NEGATIVE N UKET) Specific [place] 1.025 1.005-1.030 A (test code = USPGR) [...] 41-50 0-10 A (test code = SQEP) [address] StreetLufkinSTAT LAB CBC WITH AUTO [id number] 01:55:00 Test Item Value Reference Range Interpretation [...] code = IG%) 0.4 % 0.0-0.[address] [place], [place] [address]HEPATIC FUNCTION PANEL (LIVER)2020-10-05 01:26:00 Test Item Value [...] code = 0.1 mg/dl 0.0-1.1 IBIL) er [address] [place], [place] [address]kinLIPASE2021-04-07 01:26:00 Test Item Value Reference Range Interpretation Comments Lipase (test code = LIPA) 154 U/L 73-[address] [place] [address] LAB CHEM [id number] 01:15:00 Test Item Value Reference Range Interpretation [...] code = CREA) 0.6 mg/dl 0.6-1.[address] [place] [address] LAB , [id number] 01:14:00 Test Item Value Reference Range Interpretation Comments (Urine) (test code = Negative PREGU) er [address] [place] [address] LAB CBC WITH AUTO [id number] 01:13:00 Test Item Value Reference Range Interpretation [...] = IG%) 0.9 % 0.0-0.4 H er 10[facility] HealthcareJqgpog-[id number] 04:21:00 Test Item Value Reference Range Interpretation Comments Lipase (test code = LIPA) 146 U/L 73-393 [facility]-RiscoHEPATIC FUNCTION PANEL (LIVER)2020-09-18 04:21:00 Test Item Value [...] (test code = 0.1 mg/dl 0.0-1.1 IBIL) [facility]-fkinAMYLASE, [id number] 04:21:00 Test Item Value Reference Range Interpretation Comments Amylase (test code = AMYL) 47 U/L 25-115 [facility]-fkinURINALYSIS WITH [id number] 03:06:00 Test Item Value Reference Range Interpretation Comments Color (test code = Light-Yellow UCOLR) Clarity (test code = Clear UCLAR) Glucose (test code = NEGATIVE NEGATIVE N UGLUC) Bilirubin (test code NEGATIVE NEGATIVE N = UBILI) Ketones (test code = TRACE NEGATIVE A UKET) Specific [place] 1.025 1.005-1.030 A (test code = USPGR) [...] SEEN A Epithelial (test code = NSE) [facility][note 3] LAB CHEM [id number] 02:51:00 Test Item Value Reference Range Interpretation [...] mg/dl 0.6-1.3 [facility][note 3] LAB CBC WITH AUTO [id number] 02:50:00 Test Item Value Reference Range Interpretation [...] code = IG%) 0.5 % 0.0-0.4 H [facility]-LufkinXR ABDOMEN 1 VIEW (KUB)2020-09-12 01:51:21 [facility] ([facility]/[place])Name: LAUREN BETH : 1985 Sex: FPROCEDURE INFORMATION:Exam: [...] CDT.Dictated By: CELESTINO ALLENDate: 09/12/2020 01:50[facility] LAB CBC WITH AUTO [id number] 01:29:00 Test Item Value Reference Range Interpretation [...] % 0.0-0.4 [facility][note 3] LAB CHEM [id number] 01:28:00 Test Item Value Reference Range Interpretation [...] (test code = CREA) 0.6 mg/dl 0.6-1.3 [facility]-fkinURINALYSIS WITH [id number] 03:04:00 Test Item Value Reference Range Interpretation Comments Color (test code = Yellow UCOLR) Clarity (test code = Clear UCLAR) Glucose (test code = 100 NEGATIVE A UGLUC) Bilirubin (test code = NEGATIVE NEGATIVE N UBILI) Ketones (test code = TRACE NEGATIVE A UKET) Specific [place] (test >=1.030 1.005-1.030 A code = USPGR) Blood (test code = NEGATIVE NEGATIVE N UBLD) PH (test code = UPH) 5.5 4.5-8.0 A Protein (test code = NEGATIVE NEGATIVE N UPROT) Urobilinogen (test code 0.2 See_Comment N [Au tomated message] = U UROB) The system [employer] generated this result transmitted ref erence range: [...] code = 3+ None Seen,Trace A UBACT) [facility]-[id number] 03:01:00 Test Item Value Reference Range Interpretation [...] and management of c hronic kidney failure. [facility] HealthcareFzwfki-[id number] 03:01:00 Test Item Value Reference Range Interpretation Comments Lipase (test code = LIPA) 145 U/L 73-393 [facility][note 3] LAB TEST, Serum Qualitative 2020-08-22 02:48:00 Test Item Value Reference Range Interpretation Comments (Serum) (test code = Negative PREGS) [facility][note 3] LAB CBC WITH AUTO [id number] 02:28:00 Test Item Value Reference Range Interpretation [...] 0.5 % 0.0-0.4 H [facility]owocHEPATIC FUNCTION PANEL (LIVER)2020-08-06 02:59:00 Test Item Value [...] (test code = 0.1 mg/dl 0.0-1.1 IBIL) [address]-[id number] 02:59:00 Test Item Value Reference Range Interpretation Comments Lipase (test code = LIPA) 167 U/L 73-[address] [place] [address]-LufkinURINALYSIS WITH [id number] 02:48:00 Test Item Value Reference Range Interpretation Comments Color (test code = UCOLR) Yellow Clarity (test code = UCLAR) Clear Glucose (test code = UGLUC) NEGATIVE NEGATIVE N Bilirubin (test code = UBILI) NEGATIVE NEGATIVE N Ketones (test code = UKET) NEGATIVE NEGATIVE N Specific [place] (test code = >=1.030 1.005-1.030 A USPGR) [...] code = UBACT) 4+ None Seen,Trace A [address]-LufkinCT ABDOMEN/PELVIS W/O [id number] 02:34:52ER 16 R/O KIDNEY STONE [facility] ([facility]/[place])Name: LAUREN BETH : [id number] Sex: FPROCEDURE INFORMATION:Exam: CT Abdomen And Pelvis [...] AM CDT.Dictated By: HOLLIS FERRERADate: 08/06/2020 02:34[facility] LAB CHEM 8 2020-08-06 02:29:00 Test [...] code = CREA) 0.4 mg/dl 0.6-1.[address] LAB CBC WITH AUTO [id number] 02:29:00 Test Item Value Reference Range Interpretation [...] = IG%) 0.7 % 0.0-0.4 H ER [address] [place], [place] [address]Uphkij-[id number] 09:31:00 Test Item Value Reference Range Interpretation Comments Lipase (test code = LIPA) 117 U/L 73-393 [facility]ocHEPATIC FUNCTION PANEL (LIVER)2020-07-19 09:31:00 Test Item Value [...] (test code = 0.3 mg/dl 0.0-1.1 IBIL) [facility]-[place]ufkinXR ABDOMEN 2 VIEWS FLAT / [id number] 09:22:50[facility] ([facility]/[place])Name: LAUREN BETH : [id number] Sex: FProcedure: XR ABDOMEN 2 VIEWS FLAT / UPRIGHTOrder Date: 07/19/2020 8:40 AMOrdering Provider: REHAN COTTON .Clinical Indication: [id number]: Abdominal painComparison: July 05, 2020Findings:Postoperative change consisting [...] AMDictated By: FARZAD DEWITT.Date: 07/19/2020 09:17[facility] OF [facility] LAB CHEM [id number] 09:10:00 Test Item Value Reference Range Interpretation [...] 0.6-1.3 L [facility][note 3] LAB CBC WITH AUTO [id number] 09:09:00 Test Item Value Reference Range Interpretation [...] 0.0-0.4 H [facility][note 3] LAB URINALYSIS WITHOUT [id number] 09:08:00 Test Item Value Reference Range Interpretation Comments Color (test code = UCOLR) Yellow Lt. Yellow A Clarity (test code = UCLAR) Clear Glucose (test code = UGLUC) Negative Negative N Bilirubin (test code = UBILI) Negative Negative N Ketones (test code = UKET) Negative Negative N Specific [place] (test code = USPGR) >=1.030 1.005-1.030 A Blood (test code = UBLD) Negative Negative N PH (test code = UPH) 6.0 4.5-8.0 A Protein (test code = UPROT) Negative Negative N Urobilinogen (test code = U UROB) 0.2 >0.2 N Nitrite (test code = UNITR) Negative Negative N Leukocyte Esterase (test code = Negative Negative N ULEUK) [facility]-RiscoCULTURE, [id number] 08:00:00Specimen: Urine SpecimensCollected: 07/05/2020 03:00 Status: Final Last Updated: 07/07/2020 08:00 CULTURE (Final) (Final) No Growth After 48 HoursDiv[facility] Healthcare-RiscoXR ABDOMEN 1 VIEW (KUB)2020-07-05 04:07:04 [facility] (LU[facility]/[place])Name: LAUREN BETH : [id number] Sex: FPROCEDURE INFORMATION:Exam: XR Abdomen, 1 ViewExam [...] CDT.Dictated By: OSKAR CRANEte: 07/05/2020 04:06[facility] LAB , [id number] 03:54:00 Test Item Value Reference Range Interpretation Comments (Urine) (test code = Negative PREGU) [facility][note 3] LAB CHEM [id number] 03:53:00 Test Item Value Reference Range Interpretation [...] 0.6-1.3 L [facility][note 3] LAB CBC WITH AUTO [id number] 03:51:00 Test Item Value Reference Range Interpretation [...] (test code = IG%) 0.4 % 0.0-0.4 [facility]-[place]ufkinURINALYSIS WITH [id number] 03:33:00 Test Item Value Reference Range Interpretation Comments Color (test code = UCOLR) Yellow Clarity (test code = UCLAR) Clear Glucose (test code = UGLUC) NEGATIVE NEGATIVE N Bilirubin (test code = UBILI) Small NEGATIVE A Ketones (test code = UKET) TRACE NEGATIVE A Specific [place] (test code = USPGR) 1.020 1.005-1.030 A [...] code = UBACT) Trace None Seen,Trace N [facility]-LufkinCT ABDOMEN/PELVIS W/[id number] 16:44:35 [facility] ([facility]/[place])Name: LAUREN BETH : [id number] Sex: FProcedure: CT ABDOMEN/PELVIS W/CONTRASTOrder date: 06/07/2020 3:47 PMOrdering Provider: REHAN Farrellinical Indication: [id number]: Left flank painComparison: 06/07/20Technique: Multiple axial helical [...] PMDictated By: WILEY VELÁZQUEZDate: 06/07/2020 16:38[facility]ODURINALYSIS WITH [id number] 15:22:00 Test Item Value Reference Range Interpretation Comments Color (test code = UCOLR) Yellow Clarity (test code = UCLAR) Clear Glucose (test code = UGLUC) NEGATIVE NEGATIVE N Bilirubin (test code = UBILI) NEGATIVE NEGATIVE N Ketones (test code = UKET) NEGATIVE NEGATIVE N Specific [place] (test code = USPGR) 1.020 1.005-1.030 A [...] Seen,Trace N [facility][note 3] LAB CHEM [id number] 15:10:00 Test Item Value Reference Range Interpretation [...] 0.6-1.3 L [facility][note 3] LAB CBC WITH AUTO [id number] 15:08:00 Test Item Value Reference Range Interpretation [...] code = IG%) 0.5 % 0.0-0.4 H [facility] HospitalkinID ABD/ PELVIS W/O CON (RENAL STONE)2020-06-07 14:56:05[facility] ([facility]/[place])Name: LAUREN BETHELLE : [id number] Sex: FProcedure: CT ABD/ PELVIS W/O CON (RENAL STONE)Order date: 06/07/2020 2:18 PMOrdering Provider: REHAN Farrellinical Indication: [id number]: Left flank painComparison: 05/31/20TECHNIQUE: Using a helical [...] 06/07/20202:49PMDictated By: WILEY VELÁZQUEZDate: 06/07/2020 14:49[facility]ODCT ABDOMEN/PELVIS W/O [id number] 12:27:07NPO 4 hours. Do not withhold meds hyst [facility] ([facility]/[place])Name: LAUREN BETH : [id number] Sex: FProcedure: CT ABDOMEN/PELVIS W/O CONTRASTOrder Date: 05/31/2020 10:25 AMOrdering Provider: ME JESUS RYANClinical Indication: [id number]: Pain radiating to right flankComparison: March 20, [...] 05/31/202012:20 PMDictated By: FARZAD DEWITT.Date: 05/31/2020 12:20[id number] 11:48:00 Test Item Value Reference Range Interpretation Comments Lipase (test code = LIPA) 116 U/L 73-393 [facility][note 3] LAB URINALYSIS WITHOUT [id number] 10:59:00 Test Item Value Reference Range Interpretation Comments Color (test code = UCOLR) Light yellow Lt. Yellow A Clarity (test code = UCLAR) Clear Glucose (test code = UGLUC) Negative Negative N Bilirubin (test code = UBILI) Negative Negative N Ketones (test code = UKET) Negative Negative N Specific [place] (test code = 1.025 1.005-1.030 A USPGR) Blood (test code = UBLD) Negative Negative N PH (test code = UPH) 6.0 4.5-8.0 A Protein (test code = UPROT) Negative Negative N Urobilinogen (test code = U 0.2 >0.2 N UROB) Nitrite (test code = UNITR) Negative Negative N Leukocyte Esterase (test code = Negative Negative N ULEUK) [facility][note 3] LAB CBC WITH AUTO [id number] 10:58:00 Test Item Value Reference Range Interpretation [...] 0.0-0.4 H [facility][note 3] LAB CHEM [id number] 10:53:00 Test Item Value Reference Range Interpretation [...] [facility] ABDOMEN 1 VIEW (KUB)2020-04-25 21:02:16 [facility] ([facility]/[place])Name: LAUREN BETH : [id number] Sex: FPROCEDURE INFORMATION:Exam: XR Abdomen, 1 ViewExam [...] PM CDT. Dictated By: TEJAS RODRIGUEZ.Date: 04/25/2020 21:02[facility]INURINAL[facility] WITH [id number] 18:57:00 Test Item Value Reference Range Interpretation Comments Color (test code = UCOLR) Yellow Lt. Yellow A Clarity (test code = UCLAR) Clear Glucose (test code = UGLUC) Negative Negative N Bilirubin (test code = UBILI) Negative Negative N Ketones (test code = UKET) Negative Negative N Specific [place] (test code = 1.020 1.005-1.030 A USPGR) [...] code = UBACT) 4+ None Seen,Trace A [facility][note 3] LAB CBC WITH AUTO [id number] 18:55:00 Test Item Value Reference Range Interpretation [...] of Platel et clumping was entered by [id number] on 04/25/2020 18:5 5 [facility][note 3] LAB CHEM [id number] 18:17:00 Test Item Value Reference Range Interpretation [...] code = CREA) 0.4 mg/dl 0.6-1.3 L [facility]-LufkinCULTURE, ANAEROBE [id number] 15:20:00FIRST DRAW = 1 aerobic and 1 anerobic CultureSpecimen: BloodCollected: 03/20/2020 18:30 Status: Final Last Updated: 03/26/2020 15:19 (1) FIRST DRAW = 1 aerobic and 1 anerobic Culture CULTURE (Final) (Final) No Growth After 5 DaysDiv[facility]-RiscoCULTGULF COAST [facility], [id number] 15:20:00FIRST DRAW = 1 aerobic and 1 anerobic CultureSpecimen: BloodCollected: 03/20/2020 18:30 Status: Final Last Updated: 03/26/2020 15:19 (1) FIRST DRAW = 1 aerobic and 1 anerobic Culture CULTURE (Final) (Final) No Growth After 5 DaysDiv[facility]-LufkinCT ABDOMEN/PELVIS W/[id number] 21:46:442 weeks s/p adhesolysis. Vomiting/pain/fever. Please do CT with PO and IV contrastProcedures: CT ABDOMEN/PELVIS W/CONTRASTExam Date: 03/20/2020 6:04 PMOrdering Physician: REHAN COTTONClinical Indication: [id number]: Abdominal painComparison: CT abdomen/pelvis, 02/25/20TECHNIQUE: Spiral multislice [...] 9:40 PMDictated By: ELMER PHAMDate:03/20/2020 21:40[facility] HOMEWOODHEPATIC FUNCTION PANEL (LIVER)2020-03-20 19:24:00 Test Item Value [...] (test code = 0.3 mg/dl 0.0-1.1 IBIL) [facility] HealthcareMsfzfd-[id number] 19:24:00 Test Item Value Reference Range Interpretation Comments Lipase (test code = LIPA) 69 U/L 73-393 L [facility] HealthcareRerulh-EtpovpHZLCFBLAX4923-06-20 19:24:00 Test Item Value Reference Range Interpretation Comments Magnesium (test code = MG) 2.0 mg/dl 1.6-2.6 [facility][note 3] LAB CHEM [id number] 18:43:00 Test Item Value Reference Range Interpretation [...] 0.6-1.3 L [facility][note 3] LAB LACTIC [id number] 18:42:00 Test Item Value Reference Range Interpretation Comments LACTATE (test code = 2.50 mmol/l 0.90-1.70 R&RB sy rene hassan rn LAC) @1842 [facility][note 3] LAB CBC WITH AUTO [id number] 18:41:00 Test Item Value Reference Range Interpretation [...] (test code = IG%) 0.4 % 0.0-0.4 [facility]-LufkinSP PERC PLMNT MIDLINE NO PORT > 5 [...] secured to the skin in the usual fashion.Telecommunications Linesworker images were recorded and [facility] the [facility] fordocumentation. The patient tolerated the procedure well and there were noimmediate complications.Impression:1. Successful upper extremity vascular access.This final report was electronically signed by Dr Farzad Dewitt MD 03/15/20201:14 PMDictated By: FARZAD DEWITTDate: 03/15/2020 13:14[facility]COR[facility] 2019 (IN HOUSE)2020-03-13 21:03:00 Test Item Value Reference Range Interpretation Comments FT (test code Negative Negative N The BioGX SARS -CoV-2 = COVID) (qualifier value) Reagents f or BD MAX System, the Bio Fire Covid-19, and t he Cepheid Covid-1 9 is for in vitro us e under FDA Emergency U se Authorization o nly. Indeterminate r esults recommend recol lection of specimen. [facility]-LufkinXR ABD SERIES W/PA [id number] 17:33:07 Procedure: XR ABD SERIES W/PA CXROrder [...] PMDictated By: GLORY BENITEZKDate: 03/13/2020 17:26[facility] OF HOMEWOODSTAT LAB CBC WITH AUTO [id number] 17:23:00 Test Item Value Reference Range Interpretation [...] entered by [id number] on 03/13/2020 17:23 [facility] ValleykinLIPASE2020-09-13 17:23:00 Test Item Value Reference Range Interpretation Comments Lipase (test code = LIPA) 61 U/L 73-393 L [facility]ocHEPATIC FUNCTION PANEL (LIVER)2020-03-13 17:23:00 Test Item Value [...] (test code = 0.4 mg/dl 0.0-1.1 IBIL) [facility]owocURINALYSIS WITH [id number] 16:54:00 Test Item Value Reference Range Interpretation Comments Color (test code = UCOLR) Yellow Lt. Yellow A Clarity (test code = UCLAR) Clear Glucose (test code = UGLUC) Negative Negative N Bilirubin (test code = UBILI) Negative Negative N Ketones (test code = UKET) Negative Negative N Specific [place] (test code = >=1.030 1.005-1.030 A USPGR) [...] code = UBACT) 4+ None Seen,Trace A [facility][note 3] LAB CHEM [id number] 16:37:00 Test Item Value Reference Range Interpretation [...] = CREA) 0.4 mg/dl 0.6-1.[address] [facility] PERC PLMNT MIDLINE NO PORT > [...] MD 03/02/202012:17 PMDictated By: Maggie BENITEZte: 03/02/2020 12:17[facility] 2019 (IN HOUSE)2020-03-01 18:48:00 Test Item Value Reference Range Interpretation Comments FT (test code Negative Negative N The BioGX SARS -CoV-2 = COVID) (qualifier value) Reagents f or BD MAX System, the Bio Fire Covid-19, and t he Cepheid Covid-1 9 is for in vitro us e under FDA Emergency U se Authorization o nly. Indeterminate r esults recommend recol lection of specimen. [facility]-LufkinPT AND [id number] 11:51:00 Test Item Value Reference Range Interpretation [...] 5 - 3.5 [facility] ValleykinPTT2020-09-01 11:51:00 Test Item Value Reference Range Interpretation Comments aPTT (test code = PTT) 27.4 seconds 23.9-30.7 [facility] ValleykinC (HEMOGRAM ONLY)2020-03-01 11:44:00 Test Item Value Reference [...] WILL BE NOTED ON THE RE PORT. [facility]-LufstefanieCULTURE, [id number] 08:08:00Specimen: Urine RandomCollected: 02/25/2020 11:27 Status: Final Last Updated: 02/27/2020 08:08 CULTURE (Final) (Final) No Growth After 48 HoursDiv[facility] Healthcare-[place] [id number] 05:38:00 Test Item Value Reference Range Interpretation [...] management of c hronic kidney failure. [facility] (Ultra Sensitive)2020-02-26 05:38:00 Test Item Value Reference Range Interpretation Comments TSH (test code = TSH) 0.04 mIU/L 0.35-3.74 L [facility] WITH AUTO [id number] 05:18:00 Test Item Value Reference Range Interpretation [...] 0.5 % 0.0-0.4 H IG%) CBC AUTO diffDivine Savior Healthcare-LufkinCORONAVIRUS 2019 (IN HOUSE)2020-02-25 14:06:00 Test Item Value Reference Range Interpretation Comments FT (test code Negative Negative N The BioGX SARS -CoV-2 = COVID) (qualifier value) Reagents f or BD MAX System, the Bio Fire Covid-19, and t he Cepheid Covid-1 9 is for in vitro us e under FDA Emergency U se Authorization o nly. Indeterminate r esults recommend recol lection of specimen. [facility]-fkinURINALYSIS WITH [id number] 12:56:00 Test Item Value Reference Range Interpretation Comments Color (test code = UCOLR) Yellow Lt. Yellow A Clarity (test code = UCLAR) Slightly Cloudy Glucose (test code = UGLUC) Negative Negative N Bilirubin (test code = UBILI) Negative Negative N Ketones (test code = UKET) Negative Negative N Specific [place] (test code = >=1.030 1.005-1.030 A USPGR) [...] code = UBACT) Trace None Seen,Trace N [facility]conomowocLIPASE2020-08-27 12:52:00 Test Item Value Reference Range Interpretation Comments Lipase (test code = LIPA) 90 U/L 73-393 [facility]conomowocHEPATIC FUNCTION PANEL (LIVER)2020-02-25 12:52:00 Test Item Value [...] 0.3 mg/dl 0.0-1.1 IBIL) [facility]ocCT ABDOMEN/PELVIS W/[id number] 12:42:41NPO 4 hours. Do not withhold medsProcedure: [...] 02/25/202012:36 PMDictated By: WILEY VELÁZQUEZDate: 02/25/2020 12:36[facility] LAB CHEM 2020-02-25 12:07:00 Test Item [...] 0.6-1.3 L [facility][note 3] LAB CBC WITH AUTO [id number] 12:05:00 Test Item Value Reference Range Interpretation [...] % 0.0-0.4 [facility][note 3] LAB CBC WITH AUTO [id number] 03:15:00 Test Item Value Reference Range Interpretation [...] code = IG%) 0.6 % 0.0-0.4 H [facility][note 3] LAB CHEM [id number] 02:55:00 Test Item Value Reference Range Interpretation [...] code = CREA) 0.5 mg/dl 0.6-1.3 L [facility]ocXR ABDOMEN 1 VIEW (KUB)2020-02-25 02:45:30 PROCEDURE INFORMATION:Exam: [...] By: JORGE LUIS WHITEDate: 02/25/2020 02:45[facility] , URINE 2020-02-25 01:12:00 Test Item Value Reference Range Interpretation Comments (Urine) (test code = Negative PREGU) [facility][note 3] LAB URINALYSIS WITHOUT [id number] 01:11:00 Test Item Value Reference Range Interpretation Comments Color (test code = UCOLR) Yellow Lt. Yellow A Clarity (test code = UCLAR) Clear Glucose (test code = UGLUC) Negative Negative N Bilirubin (test code = UBILI) Negative Negative N Ketones (test code = UKET) Negative Negative N Specific [place] (test code = USPGR) >=1.030 1.005-1.030 A Blood (test code = UBLD) Negative Negative N PH (test code = UPH) 5.5 4.5-8.0 A Protein (test code = UPROT) Negative Negative N Urobilinogen (test code = U UROB) 0.2 >0.2 N Nitrite (test code = UNITR) Negative Negative N Leukocyte Esterase (test code = Negative Negative N ULEUK) [facility]XR ABDOMEN 1 VIEW (KUB)2020-02-10 06:46:05 Procedure: XR ABDOMEN 1 VIEW (KUB)Order date: 02/10/2020 4:01 AMOrdering Provider: JUAN Galiciainical Indication: Abdominal painComparison: NoneFindings:There is no small or large bowel distention.There is no pneumoperitoneum.There are no suspicious calcifications.There is no skeletal abnormality.Impression:1. Negative single view abdomen.This final report was electronically signed by Dr Wiley Velázquez MD 02/10/20206:39 AMDictated By: WILEY VELÁZQUEZDate: 02/10/2020 06:39[facility] RENAL [facility] BLADDER (KIDNEYS)2020-02-10 05:31:33PROCEDURE INFORMATION:Exam: [...] AM CDT.Dictated By: JORGE LUIS WHITEDate: 02/10/2020 05:31[facility]ODURINAL[facility] WITH [id number] 05:10:00 Test Item Value Reference Range Interpretation Comments Color (test code = UCOLR) Yellow Lt. Yellow A Clarity (test code = UCLAR) Clear Glucose (test code = UGLUC) >=1000 Negative A Bilirubin (test code = UBILI) Negative Negative N Ketones (test code = UKET) Negative Negative N Specific [place] (test code = 1.015 1.005-1.030 A USPGR) [...] = UBACT) None Seen None Seen,Trace N [facility] HealthcareHwgcjk-[id number] 04:42:00 Test Item Value Reference Range Interpretation Comments Lipase (test code = LIPA) 91 U/L 73-393 [facility]owocHEPATIC FUNCTION PANEL (LIVER)2020-02-10 04:42:00 Test Item Value [...] (test code = 0.2 mg/dl 0.0-1.1 IBIL) [facility][note 3] LAB CHEM [id number] 04:27:00 Test Item Value Reference Range Interpretation [...] mg/dl 0.6-1.3 [facility][note 3] LAB , [id number] 04:24:00 Test Item Value Reference Range Interpretation Comments (Urine) (test code = Negative PREGU) [facility][note 3] LAB CBC WITH AUTO [id number] 04:22:00 Test Item Value Reference Range Interpretation [...] code = IG%) 0.5 % 0.0-0.4 H [facility]kinCT L SPINE W/O [id number] 12:46:24 Procedure: CT L SPINE W/O CONTRASTOrder date: 01/25/2020 11:46 AMOrdering Provider: DONALD Healyinical Indication: [id number]: Low back painComparison: NoneTechnique: Using a multislice [...] MD 01/25/202012:39 PMDictated By: WILEY VELÁZQUEZDate: 01/25/2020 12:39[facility] AUSTINHEPATIC FUNCTION PANEL (LIVER)2019-12-09 05:49:00 Test Item Value [...] code = 0.3 mg/dl 0.0-1.1 IBIL) [address]-[id number] 05:49:00 Test Item Value Reference Range Interpretation Comments Lipase (test code = LIPA) 105 U/L 73-[address] [place] [address] LAB CHEM [id number] 05:06:00 Test Item Value Reference Range Interpretation [...] code = CREA) 0.5 mg/dl 0.6-1.[address] LAB CBC WITH AUTO [id number] 05:04:00 Test Item Value Reference Range Interpretation [...] code = IG%) 0.4 % 0.0-0.[address] [place] [address]-[id number] 02:23:00 Test Item Value Reference Range Interpretation [...] and management of c hronic kidney failure. [facility]ufkinURINALYSIS WITH [id number] 02:11:00 Test Item Value Reference Range Interpretation Comments Color (test code = UCOLR) Yellow Lt. Yellow A Clarity (test code = UCLAR) Clear Glucose (test code = UGLUC) Negative Negative N Bilirubin (test code = UBILI) Negative Negative N Ketones (test code = UKET) Trace Negative A Specific [place] (test code = USPGR) >=1.030 1.005-1.030 A [...] = UBACT) 2+ None Seen,Trace A [facility] CBC WITH AUTO [id number] 02:03:00 Test Item Value Reference Range Interpretation [...] (test code = IG%) 0.4 % 0.0-0.4 [facility]CT ABDOMEN/PELVIS W/[id number] 22:43:00NPO 4 hours. Do not withhold meds [...] PM CDT.Dictated By: JOSUÉ MCGHEEDate: 10/07/2019 22:42[facility] 2019-10-07 22:05:00 Test Item Value Reference [...] and management of c hronic kidney failure. [facility]-LufkinAMYLASE, [id number] 22:05:00 Test Item Value Reference Range Interpretation Comments Amylase (test code = AMYL) 43 U/L 25-115 [facility] HealthcareZvrbsb-[id number] 22:05:00 Test Item Value Reference Range Interpretation Comments Lipase (test code = LIPA) 95 U/L 73-393 [facility]kinURINALYSIS WITH [id number] 21:49:00 Test Item Value Reference Range Interpretation Comments Color (test code = UCOLR) Yellow Lt. Yellow A Clarity (test code = UCLAR) Clear Glucose (test code = UGLUC) Negative Negative N Bilirubin (test code = UBILI) Negative Negative N Ketones (test code = UKET) 15 Negative A Specific [place] (test code = USPGR) >=1.030 1.005-1.030 A [...] code = UBACT) 3+ None Seen,Trace A [facility]-fkinSTAT LAB CBC WITH AUTO [id number] 21:45:00 Test Item Value Reference Range Interpretation [...] % 0.0-0.4 [facility][note 3] LAB , [id number] 21:36:00 Test Item Value Reference Range Interpretation Comments (Urine) (test code = Negative PREGU) [facility] HospitalkinCT ABDOMEN/PELVIS W/O [id number] 03:56:36 PROCEDURE INFORMATION:Exam: CT Abdomen And Pelvis [...] AM CDT.Dictated By: AMY ORDOÑEZDate: 09/20/2019 03:56 [facility] [id number] 02:07:00 Test Item Value Reference Range Interpretation [...] and management of c hronic kidney failure. [facility]XR ABDOMEN 2 VIEWS FLAT / [id number] 02:01:15PROCEDURE INFORMATION:Exam: XR Abdomen, 2 ViewsExam date [...] CDT.Dictated By: AMY ORDOÑEZDate: 09/20/2019 02:01[facility] TEXASURINALYS[facility] WITH MICROSCOPIC 2019-09-20 01:56:00 Test Item Value Reference Range Interpretation Comments Color (test code = UCOLR) Yellow Lt. Yellow A Clarity (test code = UCLAR) Clear Glucose (test code = UGLUC) >=1000 Negative A Bilirubin (test code = UBILI) Negative Negative N Ketones (test code = UKET) Trace Negative A Specific [place] (test code = USPGR) >=1.030 1.005-1.030 A [...] Seen,Trace A [facility][note 3] LAB CBC WITH AUTO [id number] 01:38:00 Test Item Value Reference Range Interpretation [...] code = IG%) 0.5 % 0.0-0.4 H [facility]CT ABDOMEN/PELVIS W/[id number] 04:23:30 PROCEDURE INFORMATION:Exam: CT Abdomen And Pelvis [...] CDT.Dictated By: SETH MEDINADate: 08/17/2019 04:23[facility] OF [id number] 03:34:00 Test Item Value Reference Range Interpretation Comments Lipase (test code = LIPA) 67 U/L 73-393 L [facility]-[id number] 03:34:00 Test Item Value Reference Range Interpretation [...] and management of c hronic kidney failure. [facility] WITH AUTO [id number] 03:19:00 Test Item Value Reference Range Interpretation [...] code = IG%) 0.7 % 0.0-0.4 H [facility] HospitalkinURINALYSIS WITH [id number] 03:10:00 Test Item Value Reference Range Interpretation Comments Color (test code = UCOLR) YELLOW Clarity (test code = UCLAR) CLEAR Glucose (test code = UGLUC) NEGATIVE NEGATIVE N Bilirubin (test code = UBILI) NEGATIVE NEGATIVE N Ketones (test code = UKET) NEGATIVE NEGATIVE N Specific [place] (test code = 1.025 1.005-1.030 A USPGR) [...] code = UBACT) 1+ None Seen,Trace A [facility][note 3] LAB , [id number] 03:03:00 Test Item Value Reference Range Interpretation Comments (Urine) (test code = Negative PREGU) ONLY AVAILABLE 8A-12MNDivine Savior Healthcare-[place] [address] [id number] 20:37:00 Test Item Value Reference Range Interpretation [...] (test code = CREA) 0.6 mg/dl 0.6-1.2 [place] [address] [id number] 20:28:00 Test Item Value Reference Range Interpretation [...] MPV) 7.1 fL 8.0-11.[address] [facility], [id number] 08:44:03jor2Plrwhdtd: Urine SpecimensCollected: 07/12/2019 15:00 Status: Final Last Updated: 2019 08:44 (1) err7 Culture Result (Final) (Final) Moderate Mixed Body Gabriela Isolated No Pathogens Isolated No Further Workup PerformedDivine [facility]ior [facility] LIMITED [id number] 17:53:41Procedures: FL LIMITED IVPExam Date: 07/12/2019 3:21 PMOrdering Physician: REHAN Farrellinical Indication: [id number]: Flank painComparison: CT abdomen/pelvis, 05/17/19Findings: Frontal radiographs [...] PMDictated By: ELMER PHAMDate: 07/12/2019 17:47[facility] OF [id number] 15:56:00 Test Item Value Reference Range Interpretation Comments Lipase (test code = LIPA) 97 U/L 73-[address]-fkinHEPATIC FUNCTION PANEL (LIVER)2019-07-12 15:56:00 Test Item [...] (test code = 0.2 mg/dl 0.0-1.1 IBIL) [address]-LufkinURINALYSIS WITH [id number] 15:51:00 Test Item Value Reference Range Interpretation Comments Color (test code = UCOLR) YELLOW Clarity (test code = UCLAR) CLEAR Glucose (test code = UGLUC) NEGATIVE NEGATIVE N Bilirubin (test code = UBILI) NEGATIVE NEGATIVE N Ketones (test code = UKET) NEGATIVE NEGATIVE N Specific [place] (test code = 1.020 1.005-1.030 A USPGR) [...] = UBACT) 4+ None Seen,Trace A [address] LAB CHEM [id number] 15:09:00 Test Item Value Reference Range Interpretation [...] code = CREA) 0.6 mg/dl 0.6-1.[address] LAB CBC WITH AUTO [id number] 15:08:00 Test Item Value Reference Range Interpretation [...] (test code = IG%) 0.4 % 0.0-0.[address]-LufkinCT ABDOMEN/PELVIS W/[id number] 16:33:46NPO 4 hours. Do not withhold medsProcedures: CT ABDOMEN/PELVIS W/CONTRASTExam Date: 05/17/2019 1:31 PMOrdering Physician: MERLE LYNNEClinical Indication: [id number]: Abdominal painComparison: CT abdomen/pelvis, 04/09/19TECHNIQUE: Spiral multislice [...] PMDictated By: ELMER PHAMDate: 05/17/2019 16:27[facility] [id number] 16:20:00 Test Item Value Reference Range Interpretation Comments Lipase (test code = LIPA) 70 U/L 73-393 L [facility][note 3] LAB CHEM [id number] 15:24:00 Test Item Value Reference Range Interpretation [...] 0.6-1.3 L [facility][note 3] LAB LACTIC [id number] 15:23:00 Test Item Value Reference Range Interpretation Comments LACTATE (test code = LAC) 1.39 mmol/l 0.90-1.70 [facility][note 3] LAB CBC WITH AUTO [id number] 15:21:00 Test Item Value Reference Range Interpretation [...] code = IG%) 0.5 % 0.0-0.4 H [facility]ufkinURINALYSIS WITH [id number] 15:08:00 Test Item Value Reference Range Interpretation Comments Color (test code = UCOLR) YELLOW Clarity (test code = UCLAR) CLEAR Glucose (test code = UGLUC) NEGATIVE NEGATIVE N Bilirubin (test code = UBILI) NEGATIVE NEGATIVE N Ketones (test code = UKET) NEGATIVE NEGATIVE N Specific [place] (test code = 1.025 1.005-1.030 A USPGR) [...] code = UBACT) 2+ None Seen,Trace A [facility]ufkinCT ANGIO HEAD W/WO [id number] 16:28:5720 g Cathlon Above the Antecubital or higher requiredProcedure: CT ANGIO HEAD W/WO CONTRASTOrder Date: 05/12/2019 3:30 PMOrdering Provider: REHAN CABRERARSClinical Indication: [id number]: HeadacheComparison: NoneTechnique: Using a helical scanner, sequential axial imaging of the brain wasobtained before and after the administration of the contrast medium. At anindependent workstation, 3-D reconstructions of the [place] wereobtained.This examwas performed according to [...] PMDictated By: FARZAD DEWITTDate: 05/12/2019 16:22[facility] HOMEWOODCT ABDOMEN/PELVIS W/[id number] 14:36:05NPO 4 hours. Do not withhold medsProcedure: [...] MD 04/09/20192:29 PMDictated By: GLORY BENITEZKDate: 04/09/2019 14:29[facility] WITH AUTO [id number] 09:02:00 Test Item Value Reference Range Interpretation [...] code = 0.5 % 0.0-0.4 H IG%) [facility] WITH AUTO [id number] 09:14:00 Test Item Value Reference Range Interpretation [...] (test code = 0.4 % 0.0-0.4 IG%) [facility]-[id number] 09:12:00 Test Item Value Reference Range Interpretation [...] and management of c hronic kidney failure. [facility]-LufkinSP PERC PLMNT MIDLINE NO PORT > 5 [...] PMDictated By: WILEY VELÁZQUEZDate: 04/07/2019 16:05[facility] HOMEWOODCT ABDOMEN/PELVIS W/[id number] 22:50:40PROCEDURE INFORMATION:Exam: CT Abdomen and pelvis with [...] CDT.Dictated By: ELMER PHAMDate: 04/04/2019 22:50[facility] OF [id number] 21:22:00 Test Item Value Reference Range Interpretation Comments Lipase (test code = LIPA) 89 U/L 73-393 [facility]-fkinHEPATIC FUNCTION PANEL (LIVER)2019-04-04 21:22:00 Test Item Value [...] 0.0-1.1 IBIL) [facility][note 3] LAB CHEM [id number] 21:07:00 Test Item Value Reference Range Interpretation [...] mg/dl 0.6-1.3 [facility][note 3] LAB URINALYSIS WITHOUT [id number] 21:05:00 Test Item Value Reference Range Interpretation Comments Color (test code = UCOLR) Yellow Lt. Yellow A Clarity (test code = UCLAR) Slightly Cloudy Glucose (test code = UGLUC) 100 Negative A Bilirubin (test code = UBILI) Negative Negative N Ketones (test code = UKET) Negative Negative N Specific [place] (test code = >=1.030 1.005-1.030 A USPGR) Blood (test code = UBLD) Negative Negative N PH (test code = UPH) 5.5 4.5-8.0 A Protein (test code = UPROT) Negative Negative N Urobilinogen (test code = U 0.2 >0.2 N UROB) Nitrite (test code = UNITR) Negative Negative N Leukocyte Esterase (test code Negative Negative N = ULEUK) [facility][note 3] LAB CBC WITH AUTO [id number] 21:04:00 Test Item Value Reference Range Interpretation [...] 0.0-0.4 H [facility][note 3] LAB , [id number] 21:04:00 Test Item Value Reference Range Interpretation Comments (Urine) (test code = Negative PREGU) ONLY AVAILABLE 8A-12[facility]LufkinED2 [id number] 16:05:00 Test Item Value Reference Range Interpretation Comments Sodium (test code = CANCELED mmol/l The r eleased value NA) 141 was cancele d by [id number] on 04/04/2019 16:0 5 Potassium (test code CANCELED mmol/l The released value = K) 3.9 was cancele d by [id number] on 04/04/2019 16:0 5 CO2 (test code = CANCELED mmol/l The rele ased value CO2) 23 was canceled by [id number] on 04/04/2019 16:0 5 Chloride (test code CANCELED mmol/l The r eleased value = CL) 108 was cancele d by [id number] on 04/04/2019 16:0 5 Glucose (test code = CANCELED mg/dl The r eleased value GLU) 96 was canceled by [id number] on 04/04/2019 16:0 5 Calcium (test code = CANCELED mg/dl The r eleased value CALC) 8.8 was cancele d by [id number] on 04/04/2019 16:0 5 BUN (test code = CANCELED mg/dl The relea sed value BUN) 11 was canceled by [id number] on 04/04/2019 16:0 5 Creatinine (test CANCELED mg/dl code = CREA) [facility]-LufkinHISTOLOGY [id number] 11:08:00 [address] [place], [place] [address]Ufrqc: [phone] XNWW #: [id number] MedicalDirector: Seth Valdez M.D.Surgical Pathology Consultation ReportPatient Name: LAUREN BETH Case #: [id number] [facility]. Rec. #[facility][id number] [id number] Date: [facility]/2019 : 1985(Age:33) Received: 03/23/2019 [...] greatest dimension. The cystsarefilled with clearserous fluid. Telecommunications Linesworker sections of the ovaryandpossible fallopian tube are submitted in cassettes A1-A8. /03/23/2019 Seth Valdez MD, Board Certified in Anatomic Pathology Microscopic DescriptionMicroscopic examination of the right ovary reveals fibrovascularadhesionsalong the surface of the ovary as well as along the accompanyingfallopiantube. The ovarian parenchyma contains follicular cysts, benign serouscyst,as well as numerous corpus albicans. No areas of endometriosis areseen. Billing Fee Code(s): A; 30192[facility] W/[id number] 16:45:00 Patient Name: LAUREN BETH Unit No: [id number] EXAMS: CPT CODE: [id number] US TRANSVAGINAL W/PELVIS 79430 CLINICAL HISTORY: Right lower quadrant pain. Status post appendectomy. History of ovarian cyst. Real-time ultrasound examination of the pelvis was performed using transabdominal and endovaginal approach. Uterus and left ovary have been surgically removed. Right ovary is enlarged and measures 8 .4 x 5.4 x 7.2 cm. It contains [...] Hilaria Calderón MD Technologist: Dipesh Lopez RDMS, T Probe: [id number] Trnscrbd D/ (5575) tLAURENREmmaYOS Orig Print D/T: S: 03/10/2019 (9874) [facility] NAME: LAUREN BETH Radiology Department PHYS: GUTAL. - CalderónSarabjitHilaria [address] : 1985 AGE: 33 SEX: F [place] [address] LOC: DayanaraERS PHONE #: [phone] EXAM DATE: 03/10/2019 STATUS: DEP ER FAX #: [phone] RAD NO: [id number] Page 1 Signed Rep ort Patient Name: LAUREN BETH Unit No: [id number] EXAMS: CPT CODE: [id number] US TRANSVAGINAL W/PELVIS 21256 (Continued) [facility] NAME: LAUREN BETH Radiology Department PHYS: GUTAL. - Calderón,Hilaria [address] : 1985 AGE: 33 SEX: F [place], [place] [address] LOC: DayanaraERS PHONE #: [phone] EXAM DATE: 03/10/2019 STATUS: DEP ER FAX #: [phone] RAD NO: [id number] Page 2 Signed Report- US TRANSVAGINAL W/[id number] 16:45:00 Patient Name: ADELIA BETH Unit No: [id number] EXAMS: CPT CODE: [id number] US TRANSVAGINAL W/PELVIS 95386 CLINICAL HISTORY: Right lower quadrant pain. Status [...] flow is identified in theright ovary. at 6192 Reported and signedby: Mario Guidry MD CC: Hilaria Calderón MD Technologist: Dipesh Lopez RDMS, RVT Probe: [id number] Trnscrbd D/ (6771) t.YOS Orig Print D/T: S: 03/10/2019 (6528) [facility] NAME: ADELIA BTEH Radiology Department PHYS: SUE. - Hilaria Calderón [address] : 1985 AGE: 33 SEX: F [place] [address] LOC: ALONDRA PHONE #: [phone] EXAM DATE: 03/10/2019 STATUS: REG ER FAX #: [phone] RAD NO: Page 1 Signed Report Patient Name: ADELIA BETH Unit No: [id number] EXAMS: CPT CODE: [id number] TRANSVAGINAL W/PELVIS 96079 <Continued> [facility] NAME: ADELIA BETH Radiology Department PHYS: SUE. - Hilaria Calderón [address] : 1985 AGE: 33 SEX: F [place] [address] LOC: ALONDRA PHONE #: [phone] EXAM DATE: 03/10/2019 STATUS: REG ER FAX #: [phone] RAD NO: Page 2 Signed Report- US PELVIS [id number] 16:45:00 Patient Name: LAUREN BETH Unit No: [id number] EXAMS: CPT CODE: [id number] US PELVIS COMPLETE 62024 CLINICAL HISTORY: Right lower quadrant pain. Status [...] Hilaria Calderón MD Technologist: Dipesh Lopez RDMS, T Probe: Trnscrbd D/ (1645) tEmmaSDR.YOS Orig Print D/T: S: 03/10/2019 (1648) [facility] PHYS: Hilaria Maldonado [address] : 1985 AGE: 33 SEX: F [place], [place] [address] LOC: DayanaraERS PHONE #: [phone] EXAM DATE: 03/10/2019 STATUS: [facility] FAX #: [phone] RAD NO: [id number] Page 1 Signed Report Patient Name: LAUREN BETH Unit No: [id number] EXAMS: CPT CODE: [id number] US PELVIS COMPLETE 23411 (Continued) [facility] NAME: LAUREN BETH Radiology Department PHYS: GUTAL. - Hilaria Obregon [address] : 1985 AGE: 33 SEX: F [place], [place] [address] LOC: DayanaraERS PHONE #: [phone] EXAM DATE: 03/10/2019 STATUS: [facility] ER FAX #: [phone] RAD NO: [id number] Page 2 Signed Report- US PELVIS [id number] 16:45:00 Patient Name: ADELIA BETH Unit No: [id number] EXAMS: CPT CODE: [id number] US PELVIS COMPLETE 50643 CLINICAL HISTORY: Right lower quadrant pain. Status post appendectomy. History of ovarian cyst. Real-ti me ultrasound examination of the pelvis was performed [...] Dipesh Lopez RDMS, RVT Probe: Trnscrbd D/ (660) Ro Orig Print D/T: S: 03/10/2019 (382) [facility] NAME: ADELIA BETH Radiology Department PHYS: GUTAL. - Hilaria Calderón [address] : 1985 AGE: 33 SEX: F [place], [place] [address] LOC: F.ERS PHONE #: [phone] EXAM DATE:03/10/2019 STATUS: REG ER FAX #: [phone] RAD NO: Page 1 Signed Report Patient Name: ADELIA BETH Unit No: [id number] EXAMS: CPT CODE: [id number] US PELVIS COMPLETE 47995 <Continued> [facility] NAME: ADELIA BETH Radiology Department PHYS: Hilaria Maldonado [address] : 1985 AGE: 33 SEX: F [place], [place] [address] LOC: ALONDRA PHONE #: [phone] EXAM DATE: 03/10/2019 STATUS: REG ER FAX #: [phone] RAD NO: Page 2 Signed ReportCBC W/AUTO [id number] 16:18:00 Test Item Value Reference Range Interpretation [...] = PLTMR) UA RFLX MICR CULT IF [id number] 16:07:00 Test Item Value Reference Range Interpretation [...] A Indication for culture: Suprapubic PainUR HCG [id number] 16:07:00 Test Item Value Reference Range Interpretation [...] culture: Suprapubic PainUA RFLX MICR CULT IF [id number] 16:04:00 Test Item Value Reference Range Interpretation [...] EPIU) Indication for culture: Suprapubic PainUR HCG [id number] 16:04:00 Test Item Value Reference Range Interpretation [...] culture: Suprapubic PainUA RFLX MICR CULT IF [id number] 15:55:00 Test Item Value Reference Range Interpretation [...] RARE-FEW Indication for culture: Suprapubic PainUR HCG [id number] 15:55:00 Test Item Value Reference Range Interpretation [...] and tested. Indication for culture: Suprapubic PainED2 [id number] 01:18:00 Test Item Value Reference Range Interpretation [...] fL 8.0-11.0 A [facility]ED[facility] URINE [id number] 00:55:00 Test Item Value Reference Range Interpretation Comments Color (test code = UCOLR) Yellow Lt. Yellow A Clarity (test code = UCLAR) Clear Glucose (test code = UGLUC) NEGATIVE NEGATIVE N Bilirubin (test code = UBILI) NEGATIVE NEGATIVE N Ketones (test code = UKET) NEGATIVE NEGATIVE N Specific [place] (test code = USPGR) 1.030 1.005-1.030 A Blood (test code = UBLD) NEGATIVE NEGATIVE N PH (test code = UPH) 6.0 4.5-8.0 A Protein (test code = UPROT) Trace NEGATIVE A Urobilinogen (test code = U UROB) 0.2 >0.2 N Nitrite (test code = UNITR) NEGATIVE NEGATIVE N Leukocyte Esterase (test code = NEGATIVE NEGATIVE N ULEUK) [facility]ufkinED2 , [id number] 00:54:00 Test Item Value Reference Range Interpretation Comments (Urine) (test code = Negative PREGU) [facility] HealthNhwxll-YgmnidJAJBLT3708-02-10 13:07:00 Test Item Value Reference Range Interpretation Comments Lipase (test code = LIPA) 106 U/L 73-[address] [facility] [address] ABDOMEN/PELVIS W/[id number] 12:24:12Procedures: ED2 CT ABDOMEN/PELVIS W/CONTRASTExam Date: 02/07/2019 10:11 AMOrdering Physician: WYATT Downsinical Indication: [id number]: Epigastric painComparison: CT abdomen/pelvis, 01/27/19TECHNIQUE: Spiral multislice [...] PMDictated By: ELMER PHAMDate: 02/07/2019 12:17[facility] [address]2019-08-10 10:48:00 Test Item Value Reference Range [...] (test code = TP) 7.6 gm/dl 6.4-8.1 [facility] URINE [id number] 10:45:00 Test Item Value Reference Range Interpretation Comments Color (test code = UCOLR) Yellow Lt. Yellow A Clarity (test code = UCLAR) Sl Cloudy Glucose (test code = UGLUC) NEGATIVE NEGATIVE N Bilirubin (test code = UBILI) NEGATIVE NEGATIVE N Ketones (test code = UKET) NEGATIVE NEGATIVE N Specific [place] (test code = 1.025 1.005-1.030 A USPGR) Blood (test code = UBLD) NEGATIVE NEGATIVE N PH (test code = UPH) 5.5 4.5-8.0 A Protein (test code = UPROT) NEGATIVE NEGATIVE N Urobilinogen (test code = U UROB) 0.2 >0.2 N Nitrite (test code = UNITR) NEGATIVE NEGATIVE N Leukocyte Esterase (test code = NEGATIVE NEGATIVE N ULEUK) [facility]ED2 , [id number] 10:45:00 Test Item Value Reference Range Interpretation Comments (Urine) (test code = Negative PREGU) [facility] [id number] 10:44:00 Test Item Value Reference Range Interpretation [...] code = MPV) 6.8 fL 8.0-11.0 A [facility]LufkinCT ABDOMEN/PELVIS W/[id number] 12:29:19s/p hysterectomy; rlq painProcedure: CT ABDOMEN/PELVIS W/CONTRASTOrder Date: 01/27/2019 10:57 AMOrdering Provider: DR LEXUS CASTREJON ACOSTAClinical Indication: [id number]: Abdominal painComparison: September 30, 2018TECHNIQUE:The abdo men [...] PMDictated By: GLORY BENITEZKDate: 01/27/2019 12:23[facility]ODURINAL[facility] WITH [id number] 12:10:00 Test Item Value Reference Range Interpretation Comments Color (test code = UCOLR) YELLOW Clarity (test code = UCLAR) CLEAR Glucose (test code = UGLUC) NEGATIVE NEGATIVE N Bilirubin (test code = UBILI) NEGATIVE NEGATIVE N Ketones (test code = UKET) NEGATIVE NEGATIVE N Specific [place] (test code = USPGR) <=1.005 1.005-1.030 A [...] code = UBACT) Trace None Seen,Trace N [facility] HealthcareBdpbca-JsvhzdZUHUBK8416-48-30 11:49:00 Test Item Value Reference Range Interpretation Comments Lipase (test code = LIPA) 91 U/L 73-393 [facility]ocAMYLASE, [id number] 11:49:00 Test Item Value Reference Range Interpretation Comments Amylase (test code = AMYL) 45 U/L 25-115 [facility][note 3] LAB CHEM [id number] 11:25:00 Test Item Value Reference Range Interpretation [...] 0.6-1.3 L [facility][note 3] LAB CBC WITH AUTO [id number] 11:23:00 Test Item Value Reference Range Interpretation [...] code = IG%) 0.6 % 0.0-0.4 H [facility] PELVIS [id number] 07:55:25h/o complex right ovarian cystsProcedure: Pelvic ultrasound.CLINICAL [...] 12/07/20187:49 AMDictated By:WILEY VELÁZQUEZDate: 12/07/2018 07:49[facility] [id number] 03:11:00 Test Item Value Reference Range Interpretation Comments Lipase (test code = LIPA) 136 U/L 73-393 [facility]ocHEPATIC FUNCTION PANEL (LIVER)2018-12-07 03:10:00 Test Item Value [...] 0.0-1.1 IBIL) [facility][note 3] LAB CHEM [id number] 02:41:00 Test Item Value Reference Range Interpretation [...] 0.6-1.3 L [facility][note 3] LAB CBC WITH AUTO [id number] 02:39:00 Test Item Value Reference Range Interpretation [...] code = IG%) 0.5 % 0.0-0.4 H [facility]kinURINALYSIS WITH [id number] 02:37:00 Test Item Value Reference Range Interpretation Comments Color (test code = UCOLR) YELLOW Clarity (test code = UCLAR) CLEAR Glucose (test code = UGLUC) 500 NEGATIVE A Bilirubin (test code = UBILI) NEGATIVE NEGATIVE N Ketones (test code = UKET) TRACE NEGATIVE A Specific [place] (test code = USPGR) >=1.030 1.005-1.030 A [...] code = UBACT) 2+ None Seen,Trace A [facility]-LufkinCULTURE, [id number] 07:39:00CULTURE RIGHT ABDOMEN WOUND CARE DEPTSpecimen: AbdomenCollected: [...] Sc (+/-) Negative - ICR (+/-) Negative -[facility]-LufkinXR CHEST AP/PA 1 [id number] 05:15:17Procedure: XR CHEST AP/PA 1 VIEWOrder Date: 09/30/2018 8:28 PMOrdering Provider: DIMAS Haskinsinical Indication: [id number]: Acute chest painComparison: May 13, 2017Findings:Cardiac size is magnified by technique.Pulmonary vasculature is normal.Mediastinal contour is normal.Aortic contour is normal.There is no consolidation or effusion.There is no evidence of active tuberculosis.There is no mass or pneumothorax.There is no skeletal abnormality.Impression: Negative AP portable chest x-ray.This final report was electronically signed by Dr Farzad Dewitt MD 10/01/20185:08 AMDictated By: FARZAD DEWITTDate: 10/01/2018 05:08 [facility]PELVIS W/O [id number] 00:42:26NPO 4 hours. Do not withhold medsEXAM:CT [...] CDT.Dictated By: REHAN AZARDate: 10/01/2018 00:42[facility] HOMEWOODTELVZPCJNWK6554-92-16 21:37:00 Test Item Value Reference Range Interpretation Comments Lipase (test code = LIPA) 82 U/L 73-393 [facility]ocHEPATIC FUNCTION PANEL (LIVER)2018-09-30 21:37:00 Test Item Value [...] (test code = 0.5 mg/dl 0.0-1.1 IBIL) [facility][note 3] LAB CHEM [id number] 21:10:00 Test Item Value Reference Range Interpretation [...] 0.6-1.3 L [facility][note 3] LAB CBC WITH AUTO [id number] 21:09:00 Test Item Value Reference Range Interpretation [...] (test code = IG%) 0.3 % 0.0-0.4 [facility] W/WO TUBE,ADK-[id number] 12:44:00 RUN DATE: 09/04/18 [facility] PAGE 1 RUN TIME: 1454 Specimen Inquiry RUN USER: INTERFACE -PATIENT: LAUREN BETH LOC: Juliette U #: [id number] AGE/SX: 33/F [facility] RE09/02/18REG DR: Elmer Flores : 87 BED: A DIS: 09/03/18 STATUS: DIS [place] TLOC: SPEC #: [id number] RECD: 09/02/18 STATUS: KWAME GARCIA #: [id number] MELISSA: 09/02/18- SUBM DR: Elmer Flores III ENTERED: 09/03/18 SP TYPE: MUSA PELAYO DR: ORDERED: LEVEL IV CODES: [id number] - OVARY, NOS PROCEDURES: LEVEL IV (Incomplete) TISSUES: OVARY, NOS - RIGHT OVARIAN CYST CLINICAL HISTORY 33 year old, acute pelvic pain (wpd) FINAL DIAGNOSIS Right ovarian cyst, excision: - benign simple cyst of ovary Tissue code 1 CPT code(s): 81533 [facility] 09/04/18 GROSS DESCRIPTION ANATOMIC SOURCE [...] with multiple yellow-orange, centrally hemorrhagic corpora lutea. Telecommunications Linesworker sections are submitted as A and B. [...] NORMAL NORMAL code = PLTMR) CHEMISTRY 7 [id number] 14:15:00 Test Item Value Reference Range Interpretation [...] CA) 9.2 mg/dL 8.4-10.2 N CBC W/AUTO [id number] 13:42:00 Test Item Value Reference Range Interpretation [...] NORMAL NORMAL code = PLTMR) US INTRAVAGINAL [id number] 12:35:09Procedure: Pelvic ultrasound.CLINICAL INDICATION: Pelvic pain. Status [...] PMDictated By: WILEY VELÁZQUEZDate: 09/01/2018 12:28[facility] CBC WITH AUTO [id number] 11:31:00 Test Item Value Reference Range Interpretation [...] RS88 71 on 09/01/2018 11:31 ONLY AVAILABLE [address] [place] [address]-LufkinCT ABDOMEN/PELVIS W/O [id number] 11:11:01MLP CProcedure: CT ABDOMEN/PELVIS W/O CONTRASTOrder Date: 09/01/2018 9:28 AMOrdering Provider: CHIN LORENZANAClinical Indication: [id number]: Abdominal pain. Left lower quadrant painComparison: 12/24/2017TECHNIQUE:CT [...] 09/01/201811:04 AMDictatedBy: GLORY BENITEZKDate: 09/01/2018 11:04[facility] CHEM [id number] 10:26:00 Test Item Value Reference Range Interpretation [...] CREA) 0.4 mg/dl 0.6-1.3 L ONLY AVAILABLE [address] [place] [address]-LufkinSTAT LAB URINALYSIS WITHOUT [id number] 09:59:00 Test Item Value Reference Range Interpretation Comments Color (test code = UCOLR) Yellow Lt. Yellow A Clarity (test code = UCLAR) Clear Glucose (test code = UGLUC) NEGATIVE Negative A Bilirubin (test code = UBILI) NEGATIVE Negative A Ketones (test code = UKET) NEGATIVE Negative A Specific [place] (test code = USPGR) 1.015 1.005-1.030 A Blood (test code = UBLD) NEGATIVE Negative A PH (test code = UPH) 7.0 4.5-8.0 A Protein (test code = UPROT) NEGATIVE Negative A Urobilinogen (test code = U UROB) 0.2 >0.2 N Nitrite (test code = UNITR) NEGATIVE Negative A Leukocyte Esterase (test code = NEGATIVE Negative A ULEUK) ONLY AVAILABLE [address] [place] [address]-LufkinUS INTRAVAGINAL PELVIS 2018-05-13 13:26:23Procedure: Pelvic ultrasound.CLINICAL INDICATION: [...] PMDictated By: WILEY VELÁZQUEZDate: 05/13/2018 13:20[facility] CBC WITH AUTO [id number] 12:22:00 Test Item Value Reference Range Interpretation [...] 0.0-0.4 IG%) [facility][note 3] LAB CBC WITH AUTO [id number] 11:54:00 Test Item Value Reference Range Interpretation [...] 0.5 % 0.0-0.4 H IG%) ONLY AVAILABLE [address] [place] [address] LAB URINALYSIS WITHOUT [id number] 11:25:00 Test Item Value Reference Range Interpretation Comments Color (test code = UCOLR) Yellow Lt. Yellow A Clarity (test code = UCLAR) Clear Glucose (test code = UGLUC) NEGATIVE Negative A Bilirubin (test code = UBILI) NEGATIVE Negative A Ketones (test code = UKET) NEGATIVE Negative A Specific [place] (test code = USPGR) 1.020 1.005-1.030 A Blood (test code = UBLD) NEGATIVE Negative A PH (test code = UPH) 7.0 4.5-8.0 A Protein (test code = UPROT) NEGATIVE Negative A Urobilinogen (test code = U UROB) 0.2 >0.2 N Nitrite (test code = UNITR) NEGATIVE Negative A Leukocyte Esterase (test code = NEGATIVE Negative A ULEUK) ONLY AVAILABLE [address] [place] [address] LAB , URINE 2018-05-13 11:25:00 Test Item Value Reference Range Interpretation Comments (Urine) (test code = Negative PREGU) ONLY AVAILABLE [address] [place] [address] LAB CHEM [id number] 11:23:00 Test Item Value Reference Range Interpretation [...] CREA) 0.5 mg/dl 0.6-1.3 L ONLY AVAILABLE [address] [place] [address] INTRAVAGINAL PELVIS 2017-12-24 12:50:53Procedure: Pelvic ultrasound.CLINICAL INDICATION: [...] PMDictated By: WILEY VELÁZQUEZDate: 12/24/2017 12:50[facility]ODURINALYSIS WITH [id number] 10:22:00 Test Item Value Reference Range Interpretation Comments Color (test code = UCOLR) Yellow Clarity (test code = UCLAR) Clear Glucose (test code = UGLUC) NEGATIVE NEGATIVE N Bilirubin (test code = UBILI) NEGATIVE NEGATIVE N Ketones (test code = UKET) NEGATIVE NEGATIVE N Specific [place] (test code = USPGR) 1.025 1.005-1.030 A [...] code = UBACT) Trace None Seen,Trace N [facility]-LufkinLIPASE, [id number] 10:05:00 Test Item Value Reference Range Interpretation Comments Lipase (test code = LIPA) 40 U/L 8-223 [facility]-[id number] 10:05:00 Test Item Value Reference Range Interpretation [...] and management of c hronic kidney failure. [facility]kinCT ABD/ PELVIS W/O CON (RENAL STONE)2017-12-24 09:38:31Procedure: [...] AMDictated By: WILEY VELÁZQUEZDate: 12/24/2017 09:38[facility] WITH AUTO DIFF 2017-12-24 09:26:00 Test [...] = 0.6 % 0.0-0.4 H IG%) AUTO DIFFDiv[facility] Savior Healthcare-LufkinCT ABD/ PELVIS W/O CON (RENAL STONE) 2017-06-21 [...] 3:19 AM CDT.Dictated By: MARVIN DOBBSDate: 06/21/2017 03:20[facility]INURINALYS[facility] WITH [id number] 03:20:00 Test Item Value Reference Range Interpretation Comments Color (test code = UCOLR) YELLOW Clarity (test code = UCLAR) CLEAR Glucose (test code = UGLUC) NEGATIVE NEGATIVE N Bilirubin (test code = UBILI) NEGATIVE NEGATIVE N Ketones (test code = UKET) NEGATIVE NEGATIVE N Specific [place] (test code = 1.020 1.005-1.030 A USPGR) [...] UBACT) None Seen None Seen,Trace N er [address] [place] [address]-[id number] 03:07:00 Test Item Value Reference Range Interpretation [...] and management of c hronic kidney failure. [address]-LufkinLIPASE, [id number] 03:07:00 Test Item Value Reference Range Interpretation Comments Lipase (test code = LIPA) 61 U/L 8-[address] [place] [address]-fkinCBC WITH AUTO [id number] 03:05:00 Test Item Value Reference Range Interpretation [...] code = 0.4 % 0.0-0.4 IG%) er [address] [place] [address]-[place]ufkinXR CHEST 2 PA [id number] 19:56:04 Procedure: XR CHEST 2 PA LATERALExam date: 05/13/2017 3:53 PMOrdering Provider: DR ASA BLOOMClinical Indication: fatigue, Chest painComparison: March 15, 2016Findings:Cardiomediastinal silhouette is within normal limits.The lungs are clear.No pleural effusion or pneumothorax. Osseous structures are nonacute.No evidence of active tuberculosis.Impression:No acute cardiopulmonary process.This final report was electronically signed by Dr Wiley Velázquez MD 05/13/20177:49 PMDictated By: WILEY VELÁZQUEZDate: 05/13/2017 19:55[id number] 16:53:00 Test Item Value Reference Range Interpretation [...] and management of c hronic kidney failure. [facility]2017-05-13 16:32:00 Test Item [...] WILL BE NOTED ON THE RE PORT. [facility]-LufkinURINALYSIS WITH [id number] 18:25:00 Test Item Value Reference Range Interpretation Comments Color (test code = UCOLR) YELLOW Clarity (test code = UCLAR) CLEAR Glucose (test code = UGLUC) NEGATIVE NEGATIVE N Bilirubin (test code = UBILI) NEGATIVE NEGATIVE N Ketones (test code = UKET) NEGATIVE NEGATIVE N Specific [place] (test code = 1.025 1.005-1.030 A USPGR) [...] UR MISC) None Seen None Seen N [facility]ocHEPAT[facility] FUNCTION PANEL (LIVER)2016-10-09 18:21:00 Test Item Value [...] (test code = 0.1 mg/dl 0.0-1.1 IBIL) [facility] [id number] 18:21:00 Test Item Value Reference Range Interpretation [...] and management of c hronic kidney failure. [facility] WITH AUTO [id number] 18:04:00 Test Item Value Reference Range Interpretation [...] (test code = 0 NRBC_AUTO) AUTO [facility]
[2023-03-20 23:26] LABS: Specific Gravity > 1.030 (1.005-1.030); Urine Bacteria <20 /HPF (<20); Urine Bilirubin NEGATIVE (Negative); Urine Blood Negative (Negative); Urine Clarity Extremely Turbid (Clear); Urine Color Yellow (Yellow); Urine Glucose NEGATIVE (Negative); Urine Mucus 2+ /HPF (None Seen); Urine Protein 1+ (Negative); Urine RBC None Seen /HPF (None Seen); Urine Urobilinogen 1+ (Normal)
[2023-03-20] MEDS ORDERED: FENTANYL CITR 100 MCG/2 ML ONE (23:40)
[2023-03-20] MEDS ORDERED: NA CHLORIDE 0.9% 1,000 ML ONE (23:40)
[2023-03-20] MEDS ORDERED: PROMETHAZINE INJ 25 MG/ML AMP ONE (23:40)
[2023-03-20 23:53] LABS: Absolute Lymphocytes (CBC) 2.1 K/uL (0.7-4.9); Hematocrit 35.7 % (36.0-45.0); Lymphocytes % 19.3 % (15.3-44.8); MCV 88.8 fL (80-100); MPV 6.9 fL (7.6-11.3); Platelets 281 thou/uL (152-406); RBC Red Blood Cell Count 4.02 M/uL (3.86-4.86)
[2023-03-21 00:08] LABS: Albumin 3.2 g/dL (3.4-5.0); Bilirubin Total 0.1 mg/dL (0.2-1.0); Protein, Total 6.6 g/dL (6.4-8.2)
--- NOTE | 2023-03-21 00:16 | ER ---
Nurse's Notes [facility] Name: Hong Pace Age: 37 yrs Sex: Female : 1985 Arrival Date: 03/20/2023 Time: 21:56 Bed 5 Private MD: Diagnosis: Abdominal pain, unspecified Presentation: 03/20 22:15 Chief complaint: Patient states: "I woke up with bad stomach pain". Coronavirus screen: as6 At this time, the client does not indicate any symptoms associated with coronavirus-19. Ebola Screen: No symptoms or risks identified at this time. Initial Sepsis Screen: Does the patient meet any 2 criteria? No. Patient's initial sepsis screen is negative. Does the patient have a suspected source of infection? No. Patient's initial sepsis screen is negative. Risk Assessment: Do you want to hurt yourself or someone else? Patient reports no desire to harm self or others. Onset of symptoms was March 20, 2023. 22:15 Acuity: [place] 3 as6 22:15 Method Of Arrival: Ambulatory as6 Triage Assessment: 22:18 General: Appears uncomfortable, Behavior is calm, cooperative, restless. Pain: as6 Complains of pain in left lower quadrant. Historical: - Allergies: 22:15 Morphine; as6 22:15 Toradol; as6 - PMHx: 22:15 Endometriosis of vagina; melanoma; Thyroidectomy; as6 - PSHx: 22:15 Appendectomy; section; Cholecystectomy; hysterectomy; Multiple abdominal as6 surgeries; Ovary removal; Thyroidectomy; - Immunization history:: Client reports receiving the 2nd dose of the Covid vaccine, pfizer. - Social history:: Smoking status: Patient reports the use of cigarette tobacco products, smokes one-half pack cigarettes per day. Screenin:40 [facility] ED Fall Risk Assessment (Adult) History of falling in the last 3 months, kd3 including since admission No falls in past 3 months (0 pts) Confusion or Disorientation No (0 pts) Intoxicated or Sedated No (0 pts) Impaired Gait No (0 pts) Mobility Assist Device Used No (0 pt) Altered Elimination No (0 pt) Score/Fall Risk Level 0 - 2 = Low Risk Maintained a safe environment. Abuse screen: Denies threats or abuse. Denies injuries from another. Nutritional screening: No deficits noted. Tuberculosis screening: No symptoms or risk factors identified. Assessment: 23:39 General: Appears uncomfortable, Behavior is cooperative, anxious. Neuro: Level of kd3 Consciousness is awake, alert, obeys commands, Oriented to person, place, time, situation. Cardiovascular: Patient's skin is warm and dry. Vital Signs: 22:16 BP 136 / 93; Pulse 136; Resp 20 S; Temp 98.1(TE); Pulse Ox 97% on R/A; Weight 99.79 kg as6 (R); Height 5 ft. 4 in. (R); Pain 9/10; 23:40 BP 129 / 95; Pulse 99; Resp 16; Pulse Ox 98% on R/A; kd3 03/21 00:24 BP 146 / 98; Pulse 91; Resp 18; Temp 98; Pulse Ox 99% on R/A; rv 03/20 22:16 Body Mass Index 37.76 (99.79 kg, 162.56 cm) as6 09 22:16 Pain Scale: Adult as6 [place] Coma Score: 00:24 Eye Response: spontaneous(4). Motor Response: obeys commands(6). Verbal Response: rv oriented(5). Total: 15. ED Course: 03/20 22:14 Patient arrived in ED. as6 22:15 Triage completed. as6 22:15 Arm band placed on. as6 22:18 Trinity Houser [facility]C [facility]. kb 22:18 Cole Disla MD is Attending Physician. kb 22:39 Oralia Varma RN is Primary Nurse. kd3 23:07 CT Stone Protocol In Process Unspecified. EDMS 23:38 Lipase Sent. kd3 23:38 CMP Sent. kd3 23:38 CBC with Diff Sent. kd3 23:40 Patient has correct armband on for positive identification. Provided Education on: . kd3 23:40 No provider procedures requiring assistance completed. kd3 03/21 00:22 IV discontinued, intact, bleeding controlled, No redness/swelling at site. Pressure rv dressing applied. Administered Medications: 03/20 23:38 Not Given (Patient Refused): ondansetron 4 mg IVP once; over 2 minutes kd3 23:39 Drug: NS 0.9% IV 1000 ml IV at 1 bolus Per protocol; 1000 mL bolus Route: IV; Rate: 1 kd3 bolus; Site: right forearm; 03/21 00:23 Follow up: IV Status: Completed infusion; IV Intake: 1000ml rv 03/20 23:39 Drug: fentaNYL (PF) IVP 50 mcg IVP once Route: IVP; Site: right forearm; kd3 03/21 00:23 Follow up: Response: No adverse reaction rv 03/20 23:39 Drug: Phenergan (promethazine) 12.5 mg IVP once Route: IVP; Site: right forearm; kd3 03/21 00:23 Follow up: Response: No adverse reaction rv 00:20 Drug: fentaNYL (PF) IVP 25 mcg IVP once Route: IVP; Site: right forearm; rv 00:23 Follow up: Response: Medication administered at discharge. rv Medication: 03/20 23:40 VIS not applicable for this client. kd3 Intake: 03/21 00:23 IV: 1000ml; Total: 1000ml. rv Outcome: 00:15 Discharge ordered by . kb 00:22 Discharged to home ambulatory, rv 00:22 Condition: good 00:22 Discharge instructions given to patient, Instructed on discharge instructions, follow up and referral plans. Demonstrated understanding of instructions, follow-up care, 00:24 Patient left the ED. rv Signatures: Dispatcher [employer] EDTrinity Be, LEONIDAS OSMANP-Ankit Sandra, RN RN rv Uday Smith, RN [place] as6 Oralia Varma RN RN kd3
--- NOTE | 2023-03-21 00:16 | EDPHYS ---
Physician Documentation [facility] Name: Hong Pace Age: 37 yrs Sex: Female : 1985 Arrival Date: 03/20/2023 Time: 21:56 Bed 5 Private MD: JOAQUIN Physician Cole Disla HPI: 03/20 23:57 This 37 yrs old Female presents to ER via Ambulatory with complaints of abd pain. kb 23:57 The patient presents with abdominal pain in the left lower quadrant. Onset: The kb symptoms/episode began/occurred just prior to arrival. The symptoms do not radiate. Associated signs and symptoms: Pertinent positives: nausea and vomiting. The symptoms are described as constant. Modifying factors: The symptoms are alleviated by nothing, the symptoms are aggravated by nothing. Severity of pain: At its worst the pain was moderate in the emergency department the pain is unchanged. The patient has not experienced similar symptoms in the past. The patient has not recently seen a physician. 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 Historical: - Allergies: 22:15 Morphine; as6 22:15 Toradol; as6 - PMHx: 22:15 Endometriosis of vagina; melanoma; Thyroidectomy; as6 - PSHx: 22:15 Appendectomy; section; Cholecystectomy; hysterectomy; Multiple abdominal as6 surgeries; Ovary removal; Thyroidectomy; - Immunization history:: Client reports receiving the 2nd dose of the Covid vaccine, pfizer. - Social history:: Smoking status: Patient reports the use of cigarette tobacco products, smokes one-half pack cigarettes per day. ROS: 23:57 Constitutional: Negative for fever, chills, and weight loss, kb 23:57 Abdomen/GI: Positive for abdominal pain, nausea and vomiting, 23:57 All other systems are negative, Exam: 23:57 Constitutional: This is a well developed, well nourished patient who is awake, alert, kb and in no acute distress. Head/Face: Normocephalic, atraumatic. ENT: Moist Mucous membranes Cardiovascular: Regular rate Respiratory: Respirations even and unlabored. No increased work of breathing. Talking in full sentences Skin: Warm, dry with normal turgor. Normal color. MS/ Extremity: Pulses equal, no cyanosis. Neurovascular intact. Full, normal range of motion. Neuro: Awake and alert, GCS 15, oriented to person, place, time, and situation. Moves all extremities. Normal gait. 23:57 Abdomen/GI: Inspection: abdomen appears normal, Bowel sounds: normal, Palpation: moderate abdominal tenderness, in the left lower quadrant, 23:57 Back: CVA tenderness, that is mild, is noted on the left, Vital Signs: 22:16 BP 136 / 93; Pulse 136; Resp 20 S; Temp 98.1(TE); Pulse Ox 97% on R/A; Weight 99.79 kg as6 (R); Height 5 ft. 4 in. (R); Pain 9/10; 23:40 BP 129 / 95; Pulse 99; Resp 16; Pulse Ox 98% on R/A; kd3 03/21 00:24 BP 146 / 98; Pulse 91; Resp 18; Temp 98; Pulse Ox 99% on R/A; rv 03/20 22:16 Body Mass Index 37.76 (99.79 kg, 162.56 cm) as6 03/20 22:16 Pain Scale: Adult as6 Yg Coma Score: 00:24 Eye Response: spontaneous(4). Motor Response: obeys commands(6). Verbal Response: rv oriented(5). Total: 15. MDM: 03/20 22:18 Patient medically screened. kb 23:57 Data reviewed: vital signs, nurses notes. kb 23:58 Differential diagnosis: diverticulitis, Pyelonephritis, Ureterolithiasis, urinary tract kb infection. 03/21 00:15 Counseling: I had a detailed discussion with the patient and/or guardian regarding the kb historical points, exam findings, and any diagnostic results supporting the discharge/admit diagnosis, lab results, radiology results, the need for outpatient follow up, a family practitioner, an OB/Gyne specialist, to return to the emergency department if symptoms worsen or persist or if there are any questions or concerns that arise at home. 03/20 22:19 Order name: CBC with Diff; Complete Time: 23:56 kb 03/20 22:19 Order name: CMP; Complete Time: 00:12 kb 03/20 22:19 Order name: Lipase; Complete Time: 00:12 kb 03/20 22:19 Order name: Urinalysis w/ reflexes; Complete Time: 23:27 kb 03/20 22:19 Order name: CT Stone Protocol 03/20 22:19 Order name: IV Saline Lock; Complete Time: 23:38 kb 03/20 22:19 Order name: Labs collected and sent; Complete Time: 23:38 kb Administered Medications: 03/20 23:38 Not Given (Patient Refused): ondansetron 4 mg IVP once; over 2 minutes kd3 23:39 Drug: NS 0.9% IV 1000 ml IV at 1 bolus Per protocol; 1000 mL bolus Route: IV; Rate: 1 kd3 bolus; Site: right forearm; 03/21 00:23 Follow up: IV Status: Completed infusion; IV Intake: 1000ml rv 03/20 23:39 Drug: fentaNYL (PF) IVP 50 mcg IVP once Route: IVP; Site: right forearm; kd3 03/21 00:23 Follow up: Response: No adverse reaction rv 03/20 23:39 Drug: Phenergan (promethazine) 12.5 mg IVP once Route: IVP; Site: right forearm; kd3 03/21 00:23 Follow up: Response: No adverse reaction rv 00:20 Drug: fentaNYL (PF) IVP 25 mcg IVP once Route: IVP; Site: right forearm; rv 00:23 Follow up: Response: Medication administered at discharge. rv Disposition Summary: 03/21/23 00:15 Discharge Ordered Notes: Location: Home kb Condition: Stable kb Diagnosis - Abdominal pain, unspecified kb Followup: kb - With: Emergency Department - When: As needed - Reason: Worsening of condition Followup: kb - With: Private Physician - When: 2 - 3 days - Reason: Recheck today's complaints, Continuance of care, Re-evaluation by your physician Discharge Instructions: - Discharge Summary Sheet kb - Abdominal Pain, Adult, [id number] kb Forms: - Medication Reconciliation Form kb - Thank You Letter kb - Antibiotic Education kb - Prescription Opioid Use kb - Patient Portal Instructions kb - Leadership Thank You Letter kb Signatures: Dispatcher [employer] Trinity Carlson, LEONIDAS OSMANP-Ankit Sandra, RN RN Uday Larsen, RN RN as6 Oralia Varma RN RN kd3
[2023-03-21] MEDS ORDERED: FENTANYL CITR 100 MCG/2 ML ONE (00:31)
[2023-03-21 03:26] VITALS: BP 146/98; TEMP 98; O2SAT 99
--- NOTE | 2023-03-21 13:56 | RAD REPORT ---
EXAM DESCRIPTION: Stone Protocol CLINICAL HISTORY: ABD PAIN COMPARISON: 08/02/2022 TECHNIQUE: CT of the abdomen and pelvis without IV contrast. Evaluation of the solid organs and vasc ulature is suboptimal due to lack of IV contrast. This exam was performed according to our department al dose-optimization program, which includes automated exposure control, adjustment of the mA and/or kV according to patient size and/or use of iterative reconstruction technique. FINDINGS: Lung Bases: The visualized lung bases are clear. Abdomen: Liver: The liver has normal contour and density. No obvious mass within the limitations of noncontr ast technique. Gallbladder: Surgically absent. Spleen, Pancreas, and Adrenal Glands: The spleen, pancreas, and adrenal glands are unremarkable. Kidneys: The kidneys have normal size without suspicious mass within the limitations of noncontrast t echnique. Bilateral nonobstructing renal calculi. No distal obstructing calculus identified. No hydro nephrosis. Vasculature: The aorta and IVC have normal caliber and position. Stomach: Stable postsurgical changes. Other: No free intraperitoneal air. No free fluid or lymphadenopathy. Small fat-containing umbili felipa hernia. Pelvis: Bladder: Underdistended. Bowel: No dilated loops of large or small bowel. Moderate stool in the colon. Appendix: Not visualized. Pelvis: Status post hysterectomy. No mass. Bones: No destructive bone lesions identified. IMPRESSION: 1. No acute abnormality identified on noncontrast CT of the abdomen and pelvis. 2. Bilateral nonobstructing renal calculi. No distal obstructing calculus or hydronephrosis. Electronically signed by: Rissa Guardado MD 03/20/2023 11:41 PM CDT Due to temporary technical issues with the PACS/Fluency reporting system, reports are being signed by the in house radiologists without review as a courtesy to insure prompt reporting. The interpreting radiologist is fully responsible for the content of the report.
== END 2023-03-21 00:24 | disposition home or self-care (01) ==
LOC: ER 21:56
DX: R10.32 Left lower quadrant pain (principal)
CPT/HCPCS: 36415; 74176; 76377; 80053; 81001; 83690; 85025; J2550; J3010; J7030

== ENCOUNTER 2023-04-09 22:00 | Emergency (ER) | payer SELFPAY ==
--- OUTSIDE RECORDS SUMMARY | 2023-04-09 22:03 | XMS REPORT | Clinical Summary ---
:1985 Author Organization [facility] MD [facility] Address [address] [place] [address] Care Team Providers Name Role Phone Keila Valentine MD Primary Care Provider Navi Arango Unavailable Nuria Sahu MD Unavailable Allergies Active Allergy Reactions Severity Noted [...] Readings from Last 2 Encounters: 09/08/18 36.82 kg/m² Hypothyroidism 09/08/2018 Malignant melanoma of other part [...] OVARIAN CYST SURGERY 08/29/2018 - Right 09/28/2018 [place] EXCISION MAL LESION 09/23/2018 Abdomen/Right Procedure : EXCISION OF TRUNK/ARM/LEG 0.6-1.0 CM MALIGNA NT LESION OF TRUNK, right epi gastric; Surgeon: Nicolasa Valentine MD; Location: [facility] OR; Service: SURG ON C - [...] Vaccination (#1) 01/11/1987 Results Not on fileafter 04/09/2022 Advance Directives Code Status Date Activated Date Inactivated Comments Full Code 10/04/2018 8:21 PM 10/08/2018 5:55 PM Code Status Date Activated Date Inactivated Comments Full Code 09/23/2018 1:48 PM 09/23/2018 6:55 PM Care Teams [employer] Product 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
--- OUTSIDE RECORDS SUMMARY | 2023-04-09 22:17 | XMS REPORT | Continuity of Care Document ---
:1985 Author Organization [facility] t Address [address] [place] [address] [place] [id number] Care Team Providers Name Role Phone Keila [...] Attending Clinician MONTSERRAT ACOSTA Attending Clinician Unavailable Leon ACNP, Montserrat Attending Clinician SANTINO_Ingrid_Truman_ Attending Clinician Unavailable MAGDALENE LUCIA Attending Clinician Unavailable Magdalene Lucia MD Attending Clinician Unknown, Attending Attending Clinician Unavailable RIDGE PAGAN Attending Clinician Unavailable Ridge Pagan MD Attending Clinician Doctor Unassigned, [place] Attending Clinician Unavailable Truman Quintero Attending Clinician Unavailable TRICE HARRIS Attending Clinician Unavailable Steven ENAMEL BUFFERTrice Dominguez Attending Clinician Ameena Dupree Attending Clinician AMEENA PRESTON Attending Clinician Unavailable Praveen Blas MD Attending Clinician EKTA BERMUDEZ Attending Clinician Unavailable PATRICK CARRANZA Attending Clinician Unavailable Olga Clements Attending Clinician Unavailable LEANNE HANNAH Attending Clinician Unavailable Leanne De Anda S Attending Clinician Eve Chaves RN Attending Clinician Unavailable Patrick Schumacher Attending Clinician SETH DYKES Attending Clinician Unavailable Viktoriya Wright [...] Clinician Unavailable QUINTIN BRITO Attending Clinician Unavailable Tato SWAIN Admitting Clinician Unavailable REHAN COTTON Admitting Clinician Unavailable Lion Maxwell Admitting Clinician Unavailable SUZANNE LOPEZ Admitting Clinician Unavailable VALENTIN BOX Admitting Clinician Unavailable SANTINO_Ingrid_Josesito Admitting Clinician Unavailable RIDGE PAGAN Admitting Clinician Unavailable Truman Quintero Admitting Clinician Unavailable TRICE HARRIS Admitting Clinician Unavailable EKTA BERMUDEZ Admitting Clinician Unavailable Physician, No Primary or Family Admitting Clinician UnavailLEANNE Chino Admitting Clinician Unavailable SETH DYKES Admitting Clinician Unavailable JUAN MENSAH Admitting Clinician Unavailable CHIDI, SKYE Admitting Clinician Unavailable DO WYATT SOTOMAYOR [...] Number Effective Date Expiration Date S ource [id number] 1958 00:00:00 MEDI-SHARE C1 [id number] [facility] MEDI-SHARE C1 [id number] [facility] MEDI-SHARE C1 [id number] [facility] [id number] 1958 00:00:00 MEDI-SHARE C1 [id number] [facility] PHCS GENERIC [id number] 2018 00:00:00 Problems Condition Condition Condition Status [...] Abdominal Problem Active [facility] (LUF/LI V/SA) [...] this [place] ral ral 00 note MD frandy wise might be Gian payton n different n [...] ity of of other of other 00:00: [place] part of part of 00 trunk trunk [...] [facility] (LUF/LI V/SA) [id number] Endometrio Problem Active Co mmon shannon [facility] No known No known Disease Unive rs active active ity of problems problems [facility] Allergies, Adverse Reactions, Alerts Allergy Allergy Status Severity Reaction(s) Onset Inactive Treating Comm ents Source Name Type Date Date Clinician ket[place] DA Active [place] rash 2021-07 [facility] [place] 00[facility]: d 00 [facility] ketorola DA Active U rash [facility] 2- [place] 00:00: [facility] KETOROLA DRUG Active Low Rash 2020-07 Univers C INGREDI 08-22 ity of 00:00: [place] 00 [facility] Ketorola Propensi Active Rash 2020-07 Univer s c ty to 08-22 ity of adverse 00:00: [place] reaction 00 [facility] ketorola DA Active NV 2018-0 [facility] 9-10 [facility] 00:[facility]: [facility] 00 [facility] [place] ketorola DA Active U [facility] 9-24 [place] 00:00: d 00 [facility] ketorola DA Active U rash [facility] 9-24 [place] 00:00: d 00 [facility] Ketorola Drug Active Itching Univers c Allergy 07-19 ity of 00:00: [place] 00 MD [facility] KETOROLA DRUG Active Med Itching MD Duarte INGREDI 07-19 Gian 00:00: n 00 Toradol DA Active Unknown Rash [facility] (LUF/LI V/SA) 0 Drug Active Unknown Common allergy [facility] Family History Family Member Diagnosis Comments Start Date Stop Date Source Natural mother -Breast cancer [facility] MD Naif Ayoub [facility] Social History Social Habit Start Date Stop Date Quantity Comments Source Sexual orientation [facility] of [facility] Use [facility] ASSERTION [facility] Gender identity Universit y [facility] History of Social 2023-03-18 2023-03-18 Univers ity of function 00:00:00 00:00:00 [facility] Exposure to 2022-11-10 2022-11-20 Not sure University SARS-CoV-2 (event) 00:00:00 21:50:00 [facility] Tobacco use and 2021-08-29 2021-08-29 Smokeless Universit y of exposure 00:00:00 00:00:00 tobacco non-user [facility] Alcohol intake 2018-10-04 2018-10-04 Current University of 00:00:00 00:00:00 non-drinker of [place] MD Lila muñoz [facility] (finding) Cigarettes smoked 2018-09-04 2018-09-04 [facility] ity of current (pack per 00:00:00 00:00:00 [place] Zoltan Neely ) - Reported Cancer Ce nter Cigarette 2018-09-04 2018-09-04 University of pack-years 00:00:00 00:00:00 [place] MD [facility] Sex Assigned At [birth year] Universit y of 00:00:00 00:00:00 [place] MD Olvin banuelos [facility] Center Smoking Status Start Date Stop Date Source [facility] consumption unknown Never smoked tobacco [facility] Former Smoker 2020-05-03 00:00:00 2020-05-03 [facility] Ce nter Medications Ordered Filled [...] ONCE, 1 Medical 50 mcg dose, On [facility] 03/19/23 at 0030, Routine FENTanyl PF 2022- No 50ug 50 mcg, Un spring (SUBLIMAZE 03-19 Slow IV ity o f (PF)) 05:30: 04:42 Push, [place] injection 00 :00 ONCE, 1 Medical 50 mcg dose, On [facility] 03/19/23 at 0030, Routine acetaminoph 2022- No 975mg 975 mg, U nivers en 12-25 Oral, ity of (TYLENOL) 05:30: 17:29 ONCE, 1 [place] tablet 975 00 :00 dose, On Medic al mg [facility] 12/25/22 at 0030, JOSE ondansetron 2022- No 4mg 4 mg, Slow Univers (ZOFRAN 12-25 IV Push, ity of (PF)) 05:30: 17:29 ONCE, 1 [place] injection 4 00 :00 dose, On Medi felipa mg [facility] 12/25/22 at 0030, JOSE NaCl 0.9% 2022- No 1000mL at 999 Uni vers (NS) bolus 12-16 mL/hr, ity of infusion 23:30: 00:19 1,000 mL, [place] as 1,000 mL 00 :00 IV Medical Piggyback, [place] ONCE, 1 dose, On [place] 12/16/22 at 1830, STAT famotidine 2022- No 20mg 20 mg, Univ ers (PEPCID 12-16 Slow IV ity of (PF)) 23:00: 22:58 Push, [place] injection 00 :00 ONCE, 1 Medical 20 mg dose, On [facility] 12/16/22 at 1800, JOSE FENTanyl PF 2022- No 75ug 75 mcg, Un spring (SUBLIMAZE 12-16 Slow IV ity o f (PF)) 23:00: 22:57 Push, [place] injection 00 :00 ONCE, 1 Medical 75 mcg dose, On [place] 12/16/22 at 1800, STAT proMETHazin 2022- No 25mg 25 mg, IV Univers e 12-16 Piggyback, ity of (PHENERGAN) 22:45: 22:51 ONCE, 1 [place] 25 mg in 00 :00 dose, On Medical NaCl 0.9% [place] Branch (NS) 50 mL 12/16/22 at IV 1745, JOSE piggyback proMETHazin 2022-0 Yes [id number] 25mg Take 1 Univers e 25 mg 6-18 tablet by ity of tablet 00:00: mouth [place] 00 every 6 Medical (six) Branch hours as needed for Nausea and Vomiting (N/V). proMETHazin 2022-0 Yes [id number] 25mg Take 1 Univers e 25 mg 6-18 tablet by ity of tablet 00:00: mouth [place] 00 every 6 Medical (six) Branch hours as needed for Nausea and Vomiting (N/V). proMETHazin 2022-0 Yes [id number] 25mg Take 1 Univers e 25 mg 6-18 tablet by ity of tablet 00:00: mouth [place] 00 every 6 Medical (six) Branch hours as needed for Nausea and Vomiting (N/V). proMETHazin 2022-0 Yes [id number] 25mg Take 1 Univers e 25 mg 6-18 tablet by ity of tablet 00:00: mouth [place] 00 every 6 Medical (six) Branch hours as needed for Nausea and Vomiting (N/V). cefdinir 2022- No [id number] 300mg Take 1 U nivers 300 mg 12-16 capsule by ity of capsule 00:00: 04:59 mouth in [place] 00 :00 the Medical morning Branch and 1 capsule in the evening. Do all this for 7 days. iopamidol 2022- No [id number] 100mL 100 mL, Univers (ISOVUE 11-21- Intravenou ity o f 370-500 mL) 06:30: 05:32 s, ONCE, 1 [place] injection 00 :00 dose, On Medica l 100 mL Wed Branch 11/21/22 at 0130, Routine FENTanyl PF 2022- No 50ug 50 mcg, Un spring (SUBLIMAZE 11-21- Slow IV ity o f (PF)) 05:45: [...] Medical Infusion, Branch ONCE, 1 dose, On 11/20/22 at 2330, JOSE proMETHazin 2022- No 12.5mg 12.5 mg, Univers e 11-21 IV ity of (PHENERGAN) 03:45: 03:41 Piggyback, [place] 12.5 mg in 00 :00 ONCE, 1 Medica l NaCl 0.9% dose, On Branch (NS) 50 mL Tue IV 11/20/22 at piggyback 2245, JOSE FENTanyl PF 2022-2022- No 75ug 75 mcg, Un spring (SUBLIMAZE [...] (NS) 50 mL 10/25/22 at IV 2300, JOES piggyback morpHINE (2 2022- No 2mg 2 [...] 10/02/22 at 2345, JOSE ondansetron 2021-07- No [id number] 8mg Univers (ZOFRAN-ODT 08-15 ity of ) 00:45: 23:45 [place] disintegrat 00 :00 Medical ing tablet Branch 8 mg ondansetron 2021-07- No [id number] 8mg 8 mg, Univers (ZOFRAN-ODT -14 06- Oral, ity of ) 00:45: 23:45 ONCE, 1 [place] disintegrat 00 :00 dose, On Medi felipa ing tablet Wed Branch 8 mg 06/13/22 at 1845, Routine benzonatate 2021-07 Yes [id number] 200mg Take 2 Univers 100 mg 2-14 capsules ity of capsule 00:00: by mouth [place] 00 every 8 Medical (eight) Branch hours as needed for Cough. ondansetron 2021-07 Yes [id number] 4mg Take 1 Univers 4 mg 2-14 tablet by ity of disintegrat 00:00: mouth [place] ing tablet 00 every 8 Medica l (eight) Branch hours as needed for Nausea and Vomiting (N/V). nirmatrelvi 2021-07 Yes [id number] 3{tbl} Take 3 Univers r-ritonavir 2-14 tablets by it y of (PAXLOVID, 00:00: mouth in [place] EUA,) 300 00 the Medical mg (150 mg morning Branch x 2)-100 mg and 3 tablet tablets in the evening. ondansetron 2021-07 Yes [id number] 4mg Take 1 Univers 4 mg 2-14 tablet by ity of disintegrat 00:00: mouth [place] ing tablet 00 every 8 Medica l (eight) Branch hours as needed for Nausea and Vomiting (N/V). nirmatrelvi 2021-07 Yes [id number] 3{tbl} Take 3 Univers r-ritonavir 2-14 tablets by it y of (PAXLOVID, 00:00: mouth in [place] EUA,) 300 00 the Medical mg (150 mg morning Branch x 2)-100 mg and 3 tablet tablets in the evening. promethazin 2021-07 Yes [id number] 5mL Take 5 mL Univers e-dextromet 2-14 by mouth 4 it y of horphan 00:00: (four) [place] 6.25-15 00 times Medical mg/5 mL daily as Branch syrup needed for Cough. ondansetron 2021-07 Yes [id number] 4mg Take 1 Univers 4 mg 2-14 tablet by ity of disintegrat 00:00: mouth [place] ing tablet 00 every 8 Medica l (eight) Branch hours as needed for Nausea and Vomiting (N/V). nirmatrelvi 2021-07 Yes [id number] 3{tbl} Take 3 Univers r-ritonavir 2-14 tablets by it y of (PAXLOVID, 00:00: mouth in [place] EUA,) 300 00 the Medical mg (150 mg morning Branch x 2)-100 mg and 3 tablet tablets in the evening. promethazin 2021-07 Yes [id number] 5mL Take 5 mL Univers e-dextromet 2-14 by mouth 4 it y of horphan 00:00: (four) [place] 6.25-15 00 times Medical mg/5 mL daily as Branch syrup needed for Cough. ondansetron 2021-07 Yes [id number] 4mg Take 1 Univers 4 mg 2-14 tablet by ity of disintegrat 00:00: mouth [place] ing tablet 00 every 8 Medica l (eight) Branch hours as needed for Nausea and Vomiting (N/V). nirmatrelvi 2021-07 Yes [id number] 3{tbl} Take 3 Univers r-ritonavir 2-14 tablets by it y of (PAXLOVID, 00:00: mouth in [place] EUA,) 300 00 the Medical mg (150 mg morning Branch x 2)-100 mg and 3 tablet tablets in the evening. promethazin 2021-07 Yes [id number] 5mL Take 5 mL Univers e-dextromet 2-14 by mouth 4 it y of horphan 00:00: (four) [place] 6.25-15 00 times Medical mg/5 mL daily as Branch syrup needed for Cough. ondansetron 2021-07 Yes [id number] 4mg Take 1 Univers 4 mg 2-14 tablet by ity of disintegrat 00:00: mouth [place] ing tablet 00 every 8 Medica l (eight) Branch hours as needed for Nausea and Vomiting (N/V). nirmatrelvi 2021-07 Yes [id number] 3{tbl} Take 3 Univers r-ritonavir 2-14 tablets by it y of (PAXLOVID, 00:00: mouth in [place] EUA,) 300 00 the Medical mg (150 mg morning Branch x 2)-100 mg and 3 tablet tablets in the evening. promethazin 2021-07 Yes [id number] 5mL Take 5 mL Univers e-dextromet 2-14 by mouth 4 it y of horphan 00:00: (four) [place] 6.25-15 00 times Medical mg/5 mL daily as Branch syrup needed for Cough. ondansetron 2021-07 Yes [id number] 4mg Take 1 Univers 4 mg 2-14 tablet by ity of disintegrat 00:00: mouth [place] ing tablet 00 every 8 Medica l (eight) Branch hours as needed for Nausea and Vomiting (N/V). nirmatrelvi 2021-07 Yes [id number] 3{tbl} Take 3 Univers r-ritonavir 2-14 tablets by it y of (PAXLOVID, 00:00: mouth in [place] EUA,) 300 00 the Medical mg (150 mg morning Branch x 2)-100 mg and 3 tablet tablets in the evening. promethazin 2021-07 Yes [id number] 5mL Take 5 mL Univers e-dextromet 2-14 by mouth 4 it y of horphan 00:00: (four) [place] 6.25-15 00 times Medical mg/5 mL daily as Branch syrup needed for Cough. ondansetron 2021-07 Yes [id number] 4mg Take 1 Univers 4 mg 2-14 tablet by ity of disintegrat 00:00: mouth [place] ing tablet 00 every 8 Medica l (eight) Branch hours as needed for Nausea and Vomiting (N/V). nirmatrelvi 2021-07 Yes [id number] 3{tbl} Take 3 Univers r-ritonavir 2-14 tablets by it y of (PAXLOVID, 00:00: mouth in [place] EUA,) 300 00 the Medical mg (150 mg morning Branch x 2)-100 mg and 3 tablet tablets in the evening. promethazin 2021-07 Yes [id number] 5mL Take 5 mL Univers e-dextromet 2-14 by mouth 4 it y of horphan 00:00: (four) [place] 6.25-15 00 times Medical mg/5 mL daily as Branch syrup needed for Cough. ondansetron 2021-07 Yes [id number] 4mg Take 1 Univers 4 mg 2-14 tablet by ity of disintegrat 00:00: mouth [place] ing tablet 00 every 8 Medica l (eight) Branch hours as needed for Nausea and Vomiting (N/V). nirmatrelvi 2021-07 Yes [id number] 3{tbl} Take 3 Univers r-ritonavir 2-14 tablets by it y of (PAXLOVID, 00:00: mouth in [place] EUA,) 300 00 the Medical mg (150 mg morning Branch x 2)-100 mg and 3 tablet tablets in the evening. promethazin 2021-07 Yes [id number] 5mL Take 5 mL Univers e-dextromet 2-14 by mouth 4 it y of horphan 00:00: (four) [place] 6.25-15 00 times Medical mg/5 mL daily as Branch syrup needed for Cough. ondansetron 2021-07 Yes [id number] 4mg Take 1 Univers 4 mg 2-14 tablet by ity of disintegrat 00:00: mouth [place] ing tablet 00 every 8 Medica l (eight) Branch hours as needed for Nausea and Vomiting (N/V). nirmatrelvi 2021-07 Yes [id number] 3{tbl} Take 3 Univers r-ritonavir 2-14 tablets by it y of (PAXLOVID, 00:00: mouth in [place] EUA,) 300 00 the Medical mg (150 mg morning Branch x 2)-100 mg and 3 tablet tablets in the evening. promethazin 2021-07 Yes [id number] 5mL Take 5 mL Univers e-dextromet 2-14 by mouth 4 it y of horphan 00:00: (four) [place] 6.25-15 00 times Medical mg/5 mL daily as Branch syrup needed for Cough. nirmatrelvi 2021-07- No [id number] 3{tbl} Take 3 Univers r-ritonavir 2-14 12-14 tablets by i ty of (PAXLOVID, 00:00: 00:00 mouth in [place] EUA,) 300 00 :00 the Medical mg (150 mg morning Branch x 2)-100 mg and 3 tablet tablets in the evening. benzonatate 2021-07- No [id number] 200mg Take 2 Univers 100 mg 2-14 [...] n: Perioperat kieran Patient tamsulosin 2021-07 Yes [id number] .4mg Take 1 U nivers 0.4 mg 24 07-07 capsule by ity of hr capsule 00:00: mouth at [place] 00 bedtime. Medical Branch tamsulosin 2021-07- No [id number] .4mg Take 1 Univers 0.4 mg 24 [...] 00 :00 dose, On Medi felipa mg [facility] Branch 02/19/22 at 0930, JOSE methylPREDN Yes [id number] Take by Pixelated ISolone 11-29 mouth ity of (MEDROL, 00:00: SEE-INSTRU [place] TE,) 4 mg 00 CTIONS. Medica l tablets follow Branch package directions methylPREDN Yes [id number] Take by Pixelated ISolone 11-29 mouth ity of (MEDROL, 00:00: SEE-INSTRU [place] TE,) 4 mg 00 CTIONS. Medica l tablets follow Branch package directions methylPREDN 0 Yes [id number] Take by Pixelated ISolone 11-29 mouth ity of (MEDROL, 00:00: SEE-INSTRU [place] TE,) 4 mg 00 CTIONS. Medica l tablets follow Branch package directions methylPREDN 0 2021- No [id number] Take by [place] 11-29 12-14 mouth ity of (MEDROL, 00:00: 00:00 [place]INSTRU [place] TE,) 4 mg 00 :00 CTIONS. Medica l tablets follow Branch package directions amoxicillin 2021- No [id number] 1{tbl} Take 1 Univers -clavulanat 11-29 tablet [...] ORAL) 44 Medical Branch naproxen 0 Yes [id number] 500mg Take 1 U nivers (NAPROSYN) 2-02 tablet by ity of 500 mg 00:00: mouth 2 [place] tablet 00 (two) Medical times Branch daily with meals. naproxen 2022-0 Yes [id number] 500mg Take 1 U nivers (NAPROSYN) 2-02 tablet by ity of 500 mg 00:00: mouth 2 [place] tablet 00 (two) Medical times Branch daily with meals. naproxen 2022-0 Yes [id number] 500mg Take 1 U nivers (NAPROSYN) 2-02 tablet by ity of 500 mg 00:00: mouth 2 [place] tablet 00 (two) Medical times Branch daily with meals. naproxen 2022-0 Yes [id number] 500mg Take 1 U nivers (NAPROSYN) 2-02 tablet by ity of 500 mg 00:00: mouth 2 [place] tablet 00 (two) Medical times Branch daily with meals. naproxen 2-0 Yes [id number] 500mg Take 1 U nivers (NAPROSYN) 2-02 tablet by ity of 500 mg 00:00: mouth 2 [place] tablet 00 (two) Medical times Branch daily with meals. naproxen 2-0 Yes [id number] 500mg Take 1 U nivers (NAPROSYN) 2-02 tablet by ity of 500 mg 00:00: mouth 2 [place] tablet 00 (two) Medical times Branch daily with meals. naproxen 2-0 Yes [id number] 500mg Take 1 U nivers (NAPROSYN) 2-02 tablet by ity of 500 mg 00:00: mouth 2 [place] tablet 00 (two) Medical times Branch daily with meals. naproxen 2-0 Yes [id number] 500mg Take 1 U nivers (NAPROSYN) 2-02 tablet by ity of 500 mg 00:00: mouth 2 [place] tablet 00 (two) Medical times Branch daily with meals. naproxen 2-0 Yes [id number] 500mg Take 1 U nivers (NAPROSYN) 2-02 tablet by ity of 500 mg 00:00: mouth 2 [place] tablet 00 (two) Medical times Branch daily with meals. naproxen 2022-0 Yes [id number] 500mg Take 1 U nivers (NAPROSYN) 2-02 tablet by ity of 500 mg 00:00: mouth 2 [place] tablet 00 (two) Medical times Branch daily with meals. naproxen 2022-0 Yes [id number] 500mg Take 1 U nivers (NAPROSYN) 2-02 tablet by ity of 500 mg 00:00: mouth 2 [place] tablet 00 (two) Medical times Branch daily with meals. naproxen 0 Yes [id number] 500mg Take 1 U nivers (NAPROSYN) 2-02 tablet by ity of 500 mg 00:00: mouth 2 [place] tablet 00 (two) Medical times Branch daily with meals. naproxen 2021-0 Yes [id number] 500mg Take 1 U nivers (NAPROSYN) 2-02 tablet by ity of 500 mg 00:00: mouth 2 [place] tablet 00 (two) Medical times Branch daily with meals. albuterol 2020-07 Yes [id number] 2{puff} Inhale 2 Univers 90 2-22 Puffs [...] Cough. Indication s: cough albuterol 2020-07 Yes [id number] 2{puff} Inhale 2 Univers 90 2-22 Puffs [...] Cough. Indication s: cough albuterol 2020-07 Yes [id number] 2{puff} Inhale 2 Univers 90 2-22 Puffs [...] Cough. Indication s: cough albuterol 2020-07 Yes [id number] 2{puff} Inhale 2 Univers 90 2-22 Puffs [...] Cough. Indication s: cough albuterol 2020-07 Yes [id number] 2{puff} Inhale 2 Univers 90 2-22 Puffs ity of mcg/actuati 00:00: every 6 [place] as on inhaler 00 (six) Medical hours as Branch needed for Wheezing or Bronchospa sm. albuterol 2020-07 Yes [id number] 2{puff} Inhale 2 Univers 90 2-22 Puffs ity of mcg/actuati 00:00: every 6 [place] as on inhaler 00 (six) Medical hours as Branch needed for Wheezing or Bronchospa sm. albuterol 2020-07 Yes [id number] 2{puff} Inhale 2 Univers 90 2-22 Puffs ity of mcg/actuati 00:00: every 6 [place] as on inhaler 00 (six) Medical hours as Branch needed for Wheezing or Bronchospa sm. albuterol 2020-07 Yes [id number] 2{puff} Inhale 2 Univers 90 2-22 Puffs ity of mcg/actuati 00:00: every 6 [place] as on inhaler 00 (six) Medical hours as Branch needed for Wheezing or Bronchospa sm. albuterol 2020-07 Yes [id number] 2{puff} Inhale 2 Univers 90 2-22 Puffs ity of mcg/actuati 00:00: every 6 [place] as on inhaler 00 (six) Medical hours as Branch needed for Wheezing or Bronchospa sm. albuterol 2020-07 Yes [id number] 2{puff} Inhale 2 Univers 90 2-22 Puffs ity of mcg/actuati 00:00: every 6 [place] as on inhaler 00 (six) Medical hours as Branch needed for Wheezing or Bronchospa sm. albuterol 2020-07 Yes [id number] 2{puff} Inhale 2 Univers 90 2-22 Puffs ity of mcg/actuati 00:00: every 6 [place] as on inhaler 00 (six) Medical hours as Branch needed for Wheezing or Bronchospa sm. albuterol 2020-07 Yes [id number] 2{puff} Inhale 2 Univers 90 2-22 Puffs ity of mcg/actuati 00:00: every 6 [place] as on inhaler 00 (six) Medical hours as Branch needed for Wheezing or Bronchospa sm. albuterol 2020-07 Yes [id number] 2{puff} Inhale 2 Univers 90 2-22 Puffs [...] [place] 00 EVERY DAY Medical IN THE [place] MORNING ON AN EMPTY STOMACH levothyroxi 2020-07 Yes TAKE 1 Univ ers ne 137 mcg 2-16 TABLET BY ity of tablet 00:00: MOUTH [place] 00 EVERY DAY Medical IN THE [place] MORNING ON AN EMPTY STOMACH levothyroxi 2020-07 Yes TAKE 1 Univ ers ne 137 mcg 2-16 TABLET BY ity of tablet 00:00: MOUTH [place] 00 EVERY DAY Medical IN THE [place] MORNING ON AN EMPTY STOMACH levothyroxi 2020-07 Yes TAKE 1 Univ ers ne 137 mcg 2-16 TABLET BY ity of tablet 00:00: MOUTH [place] 00 EVERY DAY Medical IN THE [place] MORNING ON AN EMPTY STOMACH levothyroxi 2020-07 Yes TAKE 1 Univ ers ne 137 mcg 2-16 TABLET BY ity of tablet 00:00: MOUTH [place] 00 EVERY DAY Medical IN THE [place] MORNING ON AN EMPTY STOMACH levothyroxi 2020-07 Yes TAKE 1 Univ ers ne 137 mcg 2-16 TABLET BY ity of tablet 00:00: MOUTH [place] 00 EVERY DAY Medical IN THE [place] MORNING ON AN EMPTY STOMACH levothyroxi 2020-07 Yes TAKE 1 Univ ers ne 137 mcg 2-16 TABLET BY ity of tablet 00:00: MOUTH [place] 00 EVERY DAY Medical IN THE [place] MORNING ON AN EMPTY STOMACH levothyroxi 2020-07 Yes TAKE 1 Univ ers ne 137 mcg 2-16 TABLET BY ity of tablet 00:00: MOUTH [place] 00 EVERY DAY Medical IN THE [place] MORNING ON AN EMPTY STOMACH levothyroxi 2020-07 Yes TAKE 1 Univ ers ne 137 mcg 2-16 TABLET BY ity of tablet 00:00: MOUTH [place] 00 EVERY DAY Medical IN THE [place] MORNING ON AN EMPTY STOMACH levothyroxi 2020-07 Yes TAKE 1 Univ ers ne 137 mcg 2-16 TABLET BY ity of tablet 00:00: MOUTH [place] 00 EVERY DAY Medical IN THE [place] MORNING ON AN EMPTY STOMACH levothyroxi 2020-07 Yes TAKE 1 Univ ers ne 137 mcg 2-16 TABLET BY ity of tablet 00:00: MOUTH [place] 00 EVERY DAY Medical IN THE [place] MORNING ON AN EMPTY STOMACH levothyroxi 2020-07 Yes TAKE 1 Univ ers ne 137 mcg 2-16 TABLET BY ity of tablet 00:00: MOUTH [place] 00 EVERY DAY Medical IN THE [place] MORNING ON AN EMPTY STOMACH levothyroxi 2020-07 Yes TAKE 1 Univ ers ne 137 mcg 2-16 TABLET BY ity of tablet 00:00: MOUTH [place] 00 EVERY DAY Medical IN THE [place] MORNING ON AN EMPTY STOMACH acetaminoph acetaminoph [...] (LUF/ LI Tablet Tablet V/SA) acetaminoph acetaminoph 2021-0 Yes [address] [facility] en 325 MG / en 325 MG / 8-26 every 4 [facility] hydro[facility]one hydrocodone 00:00: 6 hours as [facility] bitartrate bitartrate 00 needed. l 5 MG Oral 5 MG Oral (as needed (LUF/LI Tablet Tablet for pain) V/SA) acetaminoph acetaminoph 2021-0 Yes [address] [facility] en 325 MG / en 325 MG / 8-26 L [facility] hydrocodone hydrocodone 00:00: [facility] bitartrate bitartrate 00 l 5 MG Oral 5 MG Oral (LUF/ LI Tablet Tablet V/SA) acetaminoph acetaminoph 1-0 Yes [address] [facility] en [...] (PREMARIN 00:00: daily. [place] ORAL) [address] [facility] estrogens, 2018-07 Yes Take by Univ ers conjugated 0-23 mouth ity of (PREMARIN 00:00: daily. [place] ORAL) [address] [facility] [facility] estrogens, 2018-07 Yes Take by Univ ers conjugated 0-23 mouth ity of (PREMARIN 00:00: daily. [place] ORAL) 00 MD Gian payton [facility] estrogens, 2018-07 Yes Take by Univ ers conjugated 0-23 mouth ity of (PREMARIN 00:00: daily. [place] ORAL) 00 MD Gian payton [facility] estrogens, 2018-07 Yes Take by Univ ers conjugated 0-23 mouth ity of (PREMARIN 00:00: daily. [place] ORAL) 00 MD Gian payton [facility] estrogens, 2018-07 Yes Take by Univ ers conjugated 0-23 mouth ity of (PREMARIN 00:00: daily. [place] ORAL) 00 MD Gian payton [facility] estrogens, 2018-07 Yes Take by Univ ers conjugated 0-23 mouth ity of (PREMARIN 00:00: daily. [place] ORAL) 00 MD Gian payton [facility] estrogens, 2018-07 Yes Take by Univ ers conjugated 0-23 mouth ity of (PREMARIN 00:00: daily. [place] ORAL) 00 MD Gian payton [facility] estrogens, 2018-07 Yes Take by Univ ers conjugated 0-23 mouth ity of (PREMARIN 00:00: daily. [place] ORAL) 00 MD Gian payton [facility] estrogens, 2018-07 Yes Take by Univ ers conjugated 0-23 mouth ity of (PREMARIN 00:00: daily. [place] ORAL) 00 MD Gian payton [facility] estrogens, 2018-07 Yes Take by Univ ers conjugated 0-23 mouth ity of (PREMARIN 00:00: daily. [place] ORAL) 00 MD Gian payton [facility] estrogens, 2018-07 Yes Take by Univ ers conjugated 0-23 mouth ity of (PREMARIN 00:00: daily. [place] ORAL) 00 MD Gian payton [facility] estrogens, 2018-07 Yes Take by Univ ers conjugated 0-23 mouth ity of (PREMARIN 00:00: daily. [place] ORAL) 00 MD Gian payton [facility] estrogens, 2018-07 Yes Take by Univ ers conjugated 0-23 mouth ity of (PREMARIN 00:00: daily. [place] ORAL) 00 MD Gian payton [facility] estrogens, 2018-07 Yes Take by Univ ers conjugated 0-23 mouth ity of (PREMARIN 00:00: daily. [place] ORAL) [address] [facility] Premarin Premarin 2018-07 Yes Kaywin 1 tablet Common 0-23 [facility]: - [facility] 00 [facility] Premarin Premarin 2018-07 No 1{table QD Premarin 1.25 MG 1.25 MG 0-23 t} 1.25 MG 00:00: 00 estrogens, 2018-07 Yes Take by Univ ers conjugated 0-23 mouth ity of (PREMARIN 00:00: daily. [place] ORAL) 00 MD Gian payton [facility] estrogens, 2018-07 Yes Take by Univ ers conjugated 0-23 mouth ity of (PREMARIN 00:00: daily. [place] ORAL) 00 MD Gian payton [facility] estrogens, 2018-07 Yes Take by Univ ers conjugated 0-23 mouth ity of (PREMARIN 00:00: daily. [place] ORAL) 00 MD Gian payton [facility] estrogens, 2018-07 Yes Take by Univ ers conjugated 0-23 mouth ity of (PREMARIN 00:00: daily. [place] ORAL) 00 [facility] tata [facility] estrogens, 2018-07 Yes Take by Univ ers conjugated 0-23 mouth ity of (PREMARIN 00:00: daily. [place] ORAL) 00 [facility] tata [facility] estrogens, 2018-07 Yes Take by Univ ers conjugated 0-23 mouth ity of (PREMARIN 00:00: daily. [place] ORAL) 00 [facility] tata [facility] estrogens, 2018-07 Yes Take by Univ ers conjugated 0-23 mouth ity of (PREMARIN 00:00: daily. [place] ORAL) 00 [facility] tata [facility] estrogens, 2018-07 Yes Take by Univ ers conjugated 0-23 mouth ity of (PREMARIN 00:00: daily. [place] ORAL) 00 [facility] tata [facility] estrogens, 2018-07 Yes Take by Univ ers conjugated 0-23 mouth ity of (PREMARIN 00:00: daily. [place] ORAL) 00 [facility] Estradiol Estradiol 2018-07 Yes Kaywin 1 tablet Common 0-01 [facility] 00:[facility]: - [facility] 00 [facility] citalopram Yes Univers (CeleXA) 40 9-10 ity of mg tablet 00:00: [facility] citalopram Yes Univers (CeleXA) 40 9-10 ity of mg tablet 00:00: MD [facility] citalopram 2017-0 Yes Univers (CeleXA) 40 9-10 ity of mg tablet 00:00: [facility] citalopram 2018-0 Yes Univers (CeleXA) 40 9-10 ity of mg tablet 00:00: [place] MD [facility] citalopram 2017-0 Yes Univers (CeleXA) 40 9-10 ity of mg tablet 00:00: MD [facility] citalopram 2017-0 Yes Univers (CeleXA) 40 9-10 ity of mg tablet 00:00: MD Gian payton [facility] citalopram 2018-0 Yes Univers (CeleXA) 40 9-10 ity of mg tablet 00:00: [place] 00 MD Anderso [facility] citalopra [id number] Yes Univers (CeleXA) 40 9-10 ity of mg tablet 00:[facility] [address] Yes Univers (CeleXA) 40 9-10 ity of mg tablet 00:00: [facility] 2017-0 Yes Univers (CeleXA) 40 9-10 ity of mg tablet 00:00: [facility] 0 Yes Univers (CeleXA) 40 9-10 ity of mg tablet 00:00: [facility] Yes Univers (CeleXA) 40 9-10 ity of mg tablet 00:00: [facility] Univers (CeleXA) 40 9-10 ity of mg tablet 00:00: MD Gian payton [facility] 0 Yes Univers (CeleXA) 40 9-10 ity of mg tablet 00:00: [facility] Yes Univers (CeleXA) 40 9-10 ity of mg tablet 00:00: MD Gian payton [facility] Yes Univers (CeleXA) 40 9-10 ity of mg tablet 00:00: MD Gian payton [facility] [id number] Yes Univers (CeleXA) 40 9-10 ity of mg tablet 00:00: MD Gian payton [facility] citalopra 0 Yes Univers (CeleXA) 40 9-10 ity of mg tablet 00:00: MD Gian payton [facility] citalopra [id number] Yes Univers (CeleXA) 40 9-10 ity of mg tablet 00:00: MD Gian payton [facility] citalopra 2018-0 Yes Univers (CeleXA) 40 9-10 ity of mg tablet 00:00: MD Gian payton [facility] [address] Yes Univers (CeleXA) 40 9-10 ity of mg tablet 00:00: [place] 00 MD [facility] citalopram 0 Yes Univers (CeleXA) 40 9-10 ity of mg tablet 00:00: MD [facility] citalopram 0 Yes Univers (CeleXA) 40 9-10 ity of mg tablet 00:00: [place] MD Gian payton [facility] citalopram 0 Yes Univers (CeleXA) 40 9-10 ity of mg tablet 00:00: [place] MD Gian [facility]ton [facility] levothyroxi 0 Yes Univer s ne 175 mcg 8-10 ity of cap 00:00: [place] MD [facility] levothyroxi 0 Yes Univer s ne 175 mcg 8-10 ity of cap 00:00: [place] 00 MD [facility] levothyroxi 0 Yes Univer s ne 175 mcg 8-10 ity of cap 00:00: [place] 00 MD [facility] levothyroxi 0 Yes Univer s ne 175 mcg 8-10 ity of cap 00:00: [place] 00 MD [facility] levothyroxi 0 Yes Univer s ne 175 mcg 8-10 ity of cap 00:00: [place] 00 MD [facility] levothyroxi [...] cap 00:00: [place] 00 MD Gian payton [facility] levothyroxi 2010-0 Yes Univer s ne 175 mcg 8-10 ity of cap 00:00: [place] 00 MD [facility] levothyroxi 2010-0 Yes Univer s ne 175 mcg 8-10 ity of cap 00:00: [place] 00 MD Gian payton [facility] levothyroxi 2010-0 Yes Univer s ne 175 mcg 8-10 ity of cap 00:00: [place] 00 MD Gian payton [facility] levothyroxi 2010-0 Yes Univer s ne 175 mcg 8-10 ity of cap 00:00: [place] 00 MD Gian payton [facility] levothyroxi 2010-0 Yes Univer s ne 175 mcg 8-10 ity of cap 00:00: [place] 00 MD Gian payton [facility] levothyroxi 2010-0 Yes Univer s ne 175 mcg 8-10 ity of cap 00:00: [place] 00 MD Gian payton [facility] levothyroxi 2010-0 Yes Univer s ne 175 mcg 8-10 ity of cap 00:00: [place] 00 MD Gian payton [facility] levothyroxi 2010-0 Yes Univer s ne 175 mcg 8-10 ity of cap 00:00: [place] 00 MD Gian payton [facility] levothyroxi 2010-0 Yes Univer s ne 175 mcg 8-10 ity of cap 00:00: [place] 00 MD iGan payton [facility] levothyroxi 2010-0 Yes Univer s ne 175 mcg 8-10 ity of cap 00:00: [place] 00 MD Gian payton [facility] zolpidem 2007-0 Yes Univers (AMBIEN) 10 07-01 ity of mg tablet 00:00: [place] 00 MD Gian payton [facility] zolpidem 2007-0 Yes Univers (AMBIEN) 10 07-01 ity of mg tablet 00:00: [place] 00 MD [facility] zolpidem 2007-0 Yes Univers (AMBIEN) 10 07-01 ity of mg tablet 00:00: [place] 00 MD Gian [facility] zolpidem 2007-0 Yes Univers (AMBIEN) 10 07-01 ity of mg tablet 00:00: 00 [facility] zolpidem 2007-0 Yes Univers (AMBIEN) 10 07-01 ity of mg tablet 00:00: 00 MD Gian [facility]ton [facility] zolpidem 2007-0 Yes Univers (AMBIEN) 10 07-01 ity of mg tablet 00:00: 00 Andbrennan payton [facility] zolpidem 2007-0 Yes Univers (AMBIEN) 10 07-01 ity of mg tablet 00:00: 00 [facility] [place] zolpidem 2007-0 Yes Univers (AMBIEN) 10 07-01 ity of mg tablet 00:00: [place] 00 MD Gian payton [facility] zolpidem 2007-0 Yes Univers (AMBIEN) 10 07-01 ity of mg tablet 00:00: [place] 00 [facility]ianb[facility]nan [facility] zolpidem 2007-0 Yes Univers (AMBIEN) 10 07-01 ity of mg tablet 00:00: [place] 00 Andbrennan payton [facility] zolpidem 2007-0 Yes Univers (AMBIEN) 10 07-01 ity of mg tablet 00:00: [place] 00 MD Gian [facility] zolpidem 2007-0 Yes Univers (AMBIEN) 10 07-01 ity of mg tablet 00:00: [place] 00 MD Gian [facility] zolpidem 2007-0 Yes Univers (AMBIEN) 10 07-01 ity of mg tablet 00:00: [place] 00 MD Gian [facility] zolpidem 2007-0 Yes Univers (AMBIEN) 10 07-01 ity of mg tablet 00:00: [place] 00 MD Gian [facility] zolpidem 2007-0 Yes Univers (AMBIEN) 10 07-01 ity of mg tablet 00:00: [place] 00 MD Gian [facility] zolpidem 2007-0 Yes Univers (AMBIEN) 10 07-01 ity of mg tablet 00:00: [place] 00 MD Gian [facility] zolpidem 2007-0 Yes Univers (AMBIEN) 10 07-01 ity of mg tablet 00:00: [place] 00 [facility] zolpidem Yes Univers (AMBIEN) 10 07-01 ity of mg tablet 00:00: [place] 00 [facility] zolpidem Yes Univers (AMBIEN) 10 07-01 ity of mg tablet 00:00: [place] 00 [facility] zolpidem Yes Univers (AMBIEN) 10 07-01 ity of mg tablet 00:00: [place] [facility] zolpidem Yes Univers (AMBIEN) 10 07-01 ity of mg tablet 00:00: [place] [facility] zolpidem Yes Univers (AMBIEN) 10 07-01 ity of mg tablet 00:00: [place] [facility] zolpidem Yes Univers (AMBIEN) 10 07-01 ity of mg tablet 00:00: [place] 00 [facility] zolpidem Yes Univers (AMBIEN) 10 07-01 ity of mg tablet 00:00: [place] 00 [facility] acetaminoph acetaminoph Yes 1 Q5.00H [...] [facility] conjugated conjugated Gutierrez es (FDC) 1.25 (FDC) 1.25 Mem oria MG Oral MG Oral [...] [facility] conjugated conjugated daily Olamide kes (FDC) 1.25 (FDC) 1.25 Mem oria MG Oral MG Oral [...] [facility] conjugated conjugated Gutierrez es (FDC) 1.25 (FDC) 1.25 Mem oria MG Oral MG Oral [...] [facility] conjugated conjugated daily Olamide kes (FDC) 1.25 (FDC) 1.25 Mem oria MG Oral MG Oral [...] [facility] conjugated conjugated Gutierrez es (FDC) 1.25 (FDC) 1.25 Mem oria MG Oral MG Oral [...] [facility] conjugated conjugated daily Olamide kes (FDC) 1.25 (FDC) 1.25 Mem oria MG Oral MG Oral l Tablet Tablet (LUF/LI V/SA) levothyroxi levothyroxi Yes 150ug 1xD orally [facility] daily [facility] (LUF/LI V/SA) Celexa Celexa Yes Kaywin 1 tablet Commo n Aiden [facility] Levothyroxi Levothyroxi Yes Kaywin 1 tablet Common ne Sodium ne Sodium Aiden on an Sp karla empty - [facility] stomach in [facility] Estradiol Estradiol Yes Kaywin 1 patch to Common Aiden skin [facility] Promethazin Promethazin No 1{table Promethazi e HCl 25 mg e HCl 25 mg t_as_ne ne HCl 25 eded} mg Estradiol Estradiol No 1{patch Estradiol 0.1 MG/24HR 0.1 MG/24HR _to_ski 0.1 n} MG/24HR Celexa 40 Celexa 40 No 1{table QD Celexa 40 MG MG t} MG Alcolu Alcolu No 1{table QID Alcolu 7.5-325 MG 7.5-325 MG t_as_ne 7.5-325 MG [...] Sodium 150 MCG 150 MCG 150 MCG Alcolu Alcolu No 1{table QID Alcolu 7.5-325 MG 7.5-325 MG t_as_ne 7.5-325 MG eded} Promethazin Promethazin No 1{table Promethazi e HCl 25 mg e HCl 25 mg t_as_ne ne HCl 25 eded} mg Estradiol Estradiol No 1{patch Estradiol 0.1 MG/24HR 0.1 MG/24HR _to_ski 0.1 n} MG/24HR Premarin Premarin No 1{table QD Premarin 1.25 MG 1.25 MG t} 1.25 MG Alcolu Alcolu No 1{table QID Alcolu 7.5-325 MG 7.5-325 MG t_as_ne 7.5-325 MG [...] 1.25 MG 1.25 MG t} 1.25 MG Alcolu Alcolu No 1{table QID Alcolu 7.5-325 MG 7.5-325 MG t_as_ne 7.5-325 MG [...] Influenza, 2011-03-30 Completed University of Unspecified 00:00:00 [facility] Tdap 2011-03-30 Completed University of 00:00:00 [facility] Influenza, 2011-03-30 Completed University of Unspecified 00:00:00 [facility] Tdap 2011-03-30 Completed University of 00:00:00 [facility] Influenza, 2011-03-30 Completed University of Unspecified 00:00:00 [facility] Tdap 2011-03-30 Completed University of 00:00:00 [facility] Influenza, 2011-03-30 Completed University of Unspecified 00:00:00 [facility] Tdap 2011-03-30 Completed University of 00:00:00 [facility] Influenza, 2011-03-30 Completed University of Unspecified 00:00:00 [facility] Tdap 2011-03-30 Completed University of 00:00:00 [facility] Influenza, 2011-03-30 Completed University of Unspecified 00:00:00 [facility] Tdap 2011-03-30 Completed University of 00:00:00 [facility] Influenza, 2011-03-30 Completed University of Unspecified 00:00:[address] [facility] [place] [place] [facility] Tdap 2011-03-30 Completed University of 00:00:[address] [facility] [place] [place] [facility] Influenza, 2011-03-30 Completed University of Unspecified 00:00:[address] [facility] [place] [place] [facility] Tdap 2011-03-30 Completed University of 00:00:[address] [facility] [place] [place] [facility] Influenza, 2011-03-30 Completed University of Unspecified 00:00:[address] [facility] [place] [place] [facility] Tdap 2011-03-30 Completed University of 00:00:[address] [facility] [place] [place] [facility] Influenza, 2011-03-30 Completed University of Unspecified 00:00:[address] [facility] [place] [place] [facility] Tdap 2011-03-30 Completed University of 00:00:[address] [facility] [place] [place] [facility] Influenza, 2011-03-30 Completed University of Unspecified 00:00:[address] [facility] [place] [place] [facility] Tdap 2011-03-30 Completed University of 00:00:[address] [facility] [place] [place] [facility] Influenza, 2011-03-30 Completed University of Unspecified 00:00:[address] [facility] [place] [place] [facility] Tdap 2011-03-30 Completed University of 00:00:[address] [facility] [place] [place] [facility] Influenza, 2011-03-30 Completed University of Unspecified 00:00:[address] [facility] [place] [place] [facility] Tdap 2011-03-30 Completed University of 00:00:[address] [facility] [place] [place] [facility] Influenza, 2011-03-30 Completed University of Unspecified 00:00:[address] [facility] [place] [place] [facility] Tdap 2011-03-30 Completed University of 00:00:[address] [facility] [place] [place] [facility] Influenza, 2011-03-30 Completed University of Unspecified 00:00:[address] [facility] [place] [place] [facility] Tdap 2011-03-30 Completed University of 00:00:[address] [facility] [place] [place] [facility] Influenza, 2011-03-30 Completed University of Unspecified 00:00:[address] [facility] [place] [place] [facility] Tdap 2011-03-30 Completed University of 00:00:[address] [facility] [place] [place] [facility] Influenza, 2011-03-30 Completed University of Unspecified 00:00:[address] [facility] [place] [place] [facility] Tdap 2011-03-30 Completed University of 00:00:[address] [facility] [place] [place] [facility] Influenza, 2011-03-30 Completed University of Unspecified 00:00:00 [facility] [place] Tdap 2011-03-30 Completed University of 00:00:00 [facility] [place] Influenza, 2011-03-30 Completed University of Unspecified 00:00:[address] [facility] [place] [place] [facility] Tdap 2011-03-30 Completed University of 00:00:00 [facility] Influenza, 2011-03-30 Completed University of Unspecified 00:00:[address] [facility] [place] [place] [facility] Tdap 2011-03-30 Completed University of 00:00:00 [facility] [place] Influenza, 2011-03-30 Completed University of Unspecified 00:00:00 [facility] [place] Tdap 2011-03-30 Completed University of 00:00:00 [facility] [place] Influenza, 2011-03-30 Completed University of Unspecified 00:00:00 [facility] [place] Tdap 2011-03-30 Completed University of 00:00:00 [facility] Influenza (IM) 2009-04-05 Completed University of Preservative Free 00:00:00 [facility] Influenza (IM) 2009-04-05 Completed University of Preservative Free 00:00:00 [facility] Influenza (IM) 2009-04-05 Completed University of Preservative Free 00:00:00 [facility] Influenza (IM) 2009-04-05 Completed University of Preservative Free 00:00:00 [facility] Influenza (IM) 2009-04-05 Completed University of Preservative Free 00:00:00 [facility] Influenza (IM) 2009-04-05 Completed University of Preservative Free 00:00:00 [facility] Influenza (IM) 2009-04-05 Completed University of Preservative Free 00:00:00 [facility] [place] Influenza (IM) 2009-04-05 Completed University of Preservative Free 00:00:00 [facility] [place] Influenza (IM) 2009-04-05 Completed University of Preservative Free 00:00:00 [facility] Influenza (IM) 2009-04-05 Completed University of Preservative Free 00:00:00 [facility] [place] Influenza (IM) 2009-04-05 Completed University of Preservative Free 00:00:00 [facility] [place] Influenza (IM) 2009-04-05 Completed University of Preservative Free 00:00:00 [facility] [place] Influenza (IM) 2009-04-05 Completed University of Preservative Free 00:00:00 [facility] [place] Influenza (IM) 2009-04-05 Completed University of Preservative Free 00:00:00 [facility] [place] Influenza (IM) 2009-04-05 Completed University of Preservative Free 00:00:00 [facility] [place] Influenza (IM) 2009-04-05 Completed University of Preservative Free 00:00:00 [facility] [place] Influenza (IM) 2009-04-05 Completed University of Preservative Free 00:00:00 [facility] Influenza (IM) 2009-04-05 Completed University of Preservative Free 00:00:00 [facility] [place] Influenza (IM) 2009-04-05 Completed University of Preservative Free 00:00:00 [facility] Influenza (IM) 2009-04-05 Completed University of Preservative Free 00:00:00 [facility] [place] Influenza (IM) 2009-04-05 Completed University of Preservative Free 00:00:00 [facility] [place] Influenza (IM) 2009-04-05 Completed University of Preservative Free 00:00:00 [facility] [place] Influenza, Unknown Com[facility] [place] [facility] [place] Influenza (IM) Unknown Completed University of Preservative Free [facility] [place] Tdap Unknown Completed [facility] [place] Influenza, Unknown Completed University of Unspecified [facility] [place] [place] [facility] [place] Influenza (IM) Unknown Completed University of Preservative Free [facility] [place] Tdap Unknown Completed [facility] [place] Vital Signs Vital Name Observation Time Observation Value Comments Source Systolic blood 2023-03-19 04:50:00 149 mm[Hg] [facility] of pressure [facility] Diastolic blood 2023-03-19 04:50:00 102 mm[Hg] Unive rsity of pressure [facility] Heart rate 2023-03-19 04:50:00 81 /min [facility] Respiratory rate 2023-03-19 04:50:00 15 /min Univ ersity [facility] Oxygen saturation in 2023-03-19 04:50:00 96 /min University of Arterial blood by [facility] Pulse oximetry Branch Body temperature 2023-03-19 04:06:00 37.33 Ericka Univ [facility] Body height 2023-03-19 04:06:00 162.6 cm [facility] Body weight 2023-03-19 04:06:00 104.327 kg [facility] BMI 2023-03-19 04:06:00 39.48 kg/m2 [facility] Height 2023-03-02 23:36:00 162.56 CM Weight 2023-03-02 23:36:00 99.9 KG Systolic blood 2022-12-25 03:40:00 152 mm[Hg] Univer sity of pressure [facility] Diastolic blood 2022-12-25 03:40:00 97 mm[Hg] Unive rsity of pressure [facility] Heart rate 2022-12-25 03:40:00 95 /min [facility] Body temperature 2022-12-25 03:40:00 37.28 Ericka [facility] Respiratory rate 2022-12-25 03:40:00 18 /min [facility] Body height 2022-12-25 03:40:00 162.6 cm [facility] Body weight 2022-12-25 03:40:00 108.863 kg [facility] BMI 2022-12-25 03:40:00 41.20 kg/m2 [facility] Oxygen saturation in 2022-12-25 03:40:00 95 /min [facility] Arterial blood by [facility] Pulse oximetry Branch Systolic blood 2022-12-17 00:00:00 131 mm[Hg] Univer sity of pressure [facility] Diastolic blood 2022-12-17 00:00:00 88 mm[Hg] Unive rsity of pressure [facility] Heart rate 2022-12-17 00:00:00 69 /min [facility] Respiratory rate 2022-12-17 00:00:00 15 /min [facility] Oxygen saturation in 2022-12-17 00:00:00 100 /min [facility] Pulse oximetry [facility] Body temperature 2022-12-16 22:02:00 37.28 Ericka [facility] Systolic blood 2022-11-21 06:43:00 132 mm[Hg] Univer sity of pressure [facility] Diastolic blood 2022-11-21 06:43:00 74 mm[Hg] Unive rsity of pressure [facility] Heart rate 2022-11-21 06:43:00 76 /min [facility] Body temperature 2022-11-21 06:43:00 36.22 Ericka [facility] Oxygen saturation in 2022-11-21 06:43:00 99 /min [facility] Arterial blood by [facility] Pulse oximetry Branch Respiratory rate 2022-11-21 05:12:00 21 /min [facility] Body height 2022-11-21 02:40:00 162.6 cm [facility] Body weight 2022-11-21 02:40:00 104.327 kg [facility] BMI 2022-11-21 02:40:00 39.48 kg/m2 [facility] Systolic blood 2022-10-26 05:15:00 119 mm[Hg] Univer sity of pressure [facility] Diastolic blood 2022-10-26 05:15:00 52 mm[Hg] Unive rsity of pressure [facility] Heart rate 2022-10-26 05:15:00 84 /min [facility] Respiratory rate 2022-10-26 05:15:00 22 /min [facility] Oxygen saturation in 2022-10-26 05:15:00 98 /min [facility] Pulse oximetry [facility] Body temperature 2022-10-26 03:39:00 37.22 Ericka [facility] Body height 2022-10-26 03:39:00 162.6 cm [facility] Body weight 2022-10-26 03:39:00 113.399 kg [facility] BMI 2022-10-26 03:39:00 42.91 kg/m2 [facility] Systolic blood 2022-10-03 07:08:00 146 mm[Hg] Univer [facility]ity of pressure [facility] Diastolic blood 2022-10-03 07:08:00 91 mm[Hg] Unive rsity of pressure [facility] Heart rate 2022-10-03 07:08:00 81 /min [facility] Respiratory rate 2022-10-03 07:08:00 16 /min Univ ersity of [facility] Oxygen saturation in 2022-10-03 07:08:00 98 /min [facility] Arterial blood by [facility] Pulse oximetry Branch Body temperature 2022-10-03 03:31:00 37.22 Ericka [facility] [place] Body height 2022-10-03 03:31:00 162.6 cm [facility] Body weight 2022-10-03 03:31:00 108.863 kg [facility] BMI 2022-10-03 03:31:00 41.20 kg/m2 [facility] Systolic blood 2022-06-13 23:28:00 132 mm[Hg] Univer sity of pressure [facility] Diastolic blood 2022-06-13 23:28:00 83 mm[Hg] Unive rsity of pressure [facility] Heart rate 2022-06-13 23:28:00 107 /min [facility] Body temperature 2022-06-13 23:28:00 37.17 Ericka [facility] Respiratory rate 2022-06-13 23:28:00 16 /min [facility] ersity [facility] Body height 2022-06-13 23:28:00 162.6 cm [facility] Body weight 2022-06-13 23:28:00 102.15 kg [facility] BMI 2022-06-13 23:28:00 38.66 kg/m2 [facility] Oxygen saturation in 2022-06-13 23:28:00 96 /min [facility] blood by [facility] Pulse oximetry Branch Systolic blood 2022-05-07 14:46:22 138 mm[Hg] Univer sity of pressure [facility] Diastolic blood 2022-05-07 14:46:22 88 mm[Hg] Unive rsity of pressure [facility] Heart rate 2022-05-07 14:46:22 89 /min [facility] Respiratory rate 2022-05-07 14:46:22 20 /min [facility] Oxygen saturation in 2022-05-07 14:46:22 98 /min [facility] by [facility] Pulse oximetry [facility] Body temperature 2022-05-07 14:07:33 37 Ericka [facility] Body height 2022-05-07 13:56:00 162.6 cm [facility] Body weight 2022-05-07 13:56:00 108.863 kg [facility] BMI 2022-05-07 13:56:00 41.20 kg/m2 [facility] Systolic blood 2022-02-19 14:13:00 156 mm[Hg] Univer sity of pressure [facility] Diastolic blood 2022-02-19 14:13:00 94 mm[Hg] Unive rsity of pressure [facility] Heart rate 2022-02-19 14:13:00 111 /min [facility] Body temperature 2022-02-19 14:13:00 37.11 Ericka [facility] Respiratory rate 2022-02-19 14:13:00 22 /min [facility] Body height 2022-02-19 14:13:00 162.6 cm [facility] Body weight 2022-02-19 14:13:00 104.327 kg [facility] BMI 2022-02-19 14:13:00 39.48 kg/m2 [facility] Oxygen saturation in 2022-02-19 14:13:00 99 /min [facility] by [facility] Pulse oximetry Branch Systolic blood 2021-11-29 22:40:00 116 mm[Hg] Univer sity of pressure [facility] Diastolic blood 2021-11-29 22:40:00 85 mm[Hg] Unive rsity of pressure [facility] Heart rate 2021-11-29 22:40:00 87 /min Universi ty [facility] Body temperature 2021-11-29 22:40:00 37.28 Ericka [facility] Respiratory rate 2021-11-29 22:40:00 16 /min [facility] height 2021-11-29 22:40:00 162.6 cm Universi ty [facility] Body weight 2021-11-29 22:40:[address] [facility] BMI 2021-11-29 22:40:00 39.31 kg/m2 [facility] Oxygen saturation in 2021-11-29 22:40:00 98 /min [facility] Arterial blood by [facility] Pulse oximetry Branch Height 2021-04-23 00:58:00 [...] KG Pulse Rate 2023-03-03 03:33:00 87 /min [facility] (LUF/DAVID/SA) O2% BldC Oximetry 2023-03-03 03:33:00 98 % [facility] (LUF/DAVID/SA) BP Systolic 2023-03-03 03:16:00 154 mm[Hg] [facility] (LUF/DAVID/SA) BP Diastolic 2023-03-03 03:16:00 89 mm[Hg] [facility] ([facility]F/DAVID/SA) Body Temperature 2023-03-02 23:36:00 98.7 [degF] [facility] (F/DAVID/SA) Respiratory Rate 2023-03-02 23:36:00 16 /min [facility] (LUF/DAVID/SA) Height 2023-03-02 23:36:00 64 [in_i] [facility] (F/DAVID/SA) Weight 2023-03-02 23:36:00 99.9 kg [facility] ([facility]F/DAVID/SA) BMI (Body Mass 2023-03-02 23:36:00 38 kg/m2 [facility]) [facility] (LUF/DAVID/SA) Systolic blood 2021-10-26 15:16:33 119 mm[Hg] Univer [facility]ity of [facility] Diastolic blood 2021-10-26 15:16:33 87 mm[Hg] Unive rsity of pressure [facility] Heart rate 2021-10-26 15:16:33 92 /[facility] Respiratory rate 2021-10-26 15:16:33 16 /min [facility] Oxygen saturation in 2021-10-26 15:16:33 98 /min University Arterial blood by Jeffrey muñoz Pulse oximetry [facility] Body Temperature 2021-04-23 00:58:00 97.8 [degF] [facility] (LUF/DAVID/SA) Pulse Rate 2021-04-23 00:58:00 116 /min [facility] (LUF/DAVID/SA) Respiratory Rate 2021-04-23 00:58:00 18 /min [facility] ([facility]F/DAVID/SA) O2% BldC Oximetry 2021-04-23 00:58:00 99 % [facility] (LUF/DAVID/SA) BP Systolic 2021-04-23 00:58:00 111 mm[Hg] [facility] ([facility]F/DAVID/SA) BP Diastolic 2021-04-23 00:58:00 77 mm[Hg] [facility] ([facility]/DAVID/SA) Height 2021-04-23 00:58:00 64 [in_i] [facility] (LUF/DAVID/SA) Weight 2021-04-23 00:58:00 105.1 kg [facility] (LUF/DAVID/SA) BMI (Body Mass 2021-04-23 00:58:00 40 kg/m2 [facility] (LUF/DAVID/SA) Body Temperature 2021-03-24 10:53:00 98.6 [degF] [facility] (LUF/DAVID/SA) Pulse Rate 2021-03-24 10:53:00 87 /min [facility] ([facility]F/DAVID/SA) Respiratory Rate 2021-03-24 10:53:00 18 /min [facility] (LUF/DAVID/SA) O2% BldC Oximetry 2021-03-24 10:53:00 97 % [facility] (LUF/DAVID/SA) BP Systolic 2021-03-24 10:53:00 120 mm[Hg] [facility] (LUF/DAVID/SA) BP Diastolic 2021-03-24 10:53:00 86 mm[Hg] [facility] ([facility]F/DAVID/SA) Height 2021-03-24 10:53:00 64 [in_i] [facility] (LUF/DAVID/SA) Weight 2021-03-24 10:53:00 105 kg [facility] (LUF/DAVID/SA) BMI (Body Mass 2021-03-24 10:53:00 40 kg/m2 [facility] Index) [facility] (LUF/DAVID/SA) Body Temperature 2021-03-10 10:55:00 98.4 [degF] [facility] (LUF/DAVID/SA) Pulse Rate 2021-03-10 10:55:00 85 /min [facility] (LUF/DAVID/SA) Respiratory Rate 2021-03-10 10:55:00 20 /min [facility] (F/DAVID/SA) O2% BldC Oximetry 2021-03-10 10:55:00 100 % [facility] (LUF/DAVID/SA) BP Systolic 2021-03-10 10:55:00 140 mm[Hg] [facility] (LUF/DAVID/SA) BP Diastolic 2021-03-10 10:55:00 98 mm[Hg] [facility] (LUF/DAVID/SA) Height 2021-03-10 10:55:00 64 [in_i] [facility] (F/DAVID/SA) Weight 2021-03-10 10:55:00 105.2 kg [facility] ([facility]F/DAVID/SA) BMI (Body Mass 2021-03-10 10:55:00 40 kg/m2 [facility] Index) [facility] (LUF/DAVID/SA) Pulse Rate 2021-02-23 12:32:00 67 /min [facility] (LUF/[facility]VID/SA) O2% BldC Oximetry 2021-02-23 12:32:00 98 % [facility] (F/DAVID/SA) BP Systolic 2021-02-23 12:32:00 112 mm[Hg] [facility] (LUF/DAVID/SA) BP Diastolic 2021-02-23 12:32:00 70 mm[Hg] [facility] ([facility]F/[facility]ID/SA) Heart Rate 2021-02-23 11:16:00 64 /min [facility] ([facility]F/[facility]ID/SA) Respiratory Rate 2021-02-23 11:16:00 14 /min [facility] (LUF/DAVID/SA) Body Temperature 2021-02-23 08:24:00 98.1 [degF] [facility] (F/DAVID/SA) Height 2021-02-23 08:24:00 64 [in_i] [facility] (F/DAVID/SA) Weight 2021-02-23 08:24:00 110 kg [facility] (F/DAVID/SA) BMI (Body Mass 2021-02-23 08:24:00 41.9 kg/m2 [facility] (LUF/DAVID/SA) Heart Rate 2021-01-10 01:46:00 93 /min [facility] (F/DAVID/SA) Pulse Rate 2021-01-10 01:46:00 95 /min [facility] (F/DAVID/SA) Respiratory Rate 2021-01-10 01:46:00 16 /min [facility] (F/DAVID/SA) O2% BldC Oximetry 2021-01-10 01:46:00 97 % [facility] (F/DAVID/SA) BP Systolic 2021-01-10 01:46:00 103 mm[Hg] [facility] (LUF/DAVID/SA) BP Diastolic 2021-01-10 01:46:00 71 mm[Hg] [facility] (F/DAVID/SA) Weight 2021-01-10 00:53:00 102 kg [facility] (F/DAVID/SA) Body Temperature 2021-01-10 00:47:00 98.6 [degF] [facility] (F/DAVID/SA) Pulse Rate 2020-12-12 14:20:00 87 /min [facility] (F/DAVID/SA) O2% BldC Oximetry 2020-12-12 14:20:00 98 % [facility] (F/DAVID/SA) BP Systolic 2020-12-12 14:20:00 128 mm[Hg] [facility] (LUF/DAVID/SA) BP Diastolic 2020-12-12 14:20:00 86 mm[Hg] [facility] (LUF/[facility]ID/SA) Body Temperature 2020-12-12 12:39:00 98.9 [degF] [facility] (LUF/DAVID/SA) Respiratory Rate 2020-12-12 12:39:00 20 /min [facility] (LUF/DAVID/SA) Weight 2020-12-12 12:39:00 102 kg [facility] (LUF/DA[facility]ID/SA) Body Temperature 2020-12-08 10:27:00 98.6 [degF] [facility] (LUF/DAVID/SA) Pulse Rate 2020-12-08 10:27:00 79 /min [facility] (LUF/[facility]ID/SA) Respiratory Rate 2020-12-08 10:27:00 16 /min [facility] (LUF/[facility]VID/SA) O2% BldC Oximetry 2020-12-08 10:27:00 99 % [facility] (LUF/DAVID/SA) BP Systolic 2020-12-08 10:27:00 111 mm[Hg] [facility] (LUF/DAVID/SA) BP Diastolic 2020-12-08 10:27:00 57 mm[Hg] [facility] (LUF/[facility]VID/SA) Weight 2020-12-08 10:27:00 103 kg [facility] (LUF/DAVID/SA) Body Temperature 2020-11-25 00:27:00 97.9 [degF] [facility] (LUF/DAVID/SA) Pulse Rate 2020-11-25 00:27:00 82 /min [facility] (LUF/[facility]/SA) Respiratory Rate 2020-11-25 00:27:00 17 /min [facility] (LUF/[facility]/SA) O2% BldC Oximetry 2020-11-25 00:27:00 98 % [facility] (LUF/DAVID/SA) BP Systolic 2020-11-25 00:27:00 109 mm[Hg] [facility] (LUF/DAVID/SA) BP Diastolic 2020-11-25 00:27:00 62 mm[Hg] [facility] ([facility]F/[facility]/SA) Heart Rate 2020-11-21 09:30:00 75 /min [facility] (LUF/[facility]/SA) Respiratory Rate 2020-11-21 09:30:00 14 /min [facility] (LUF/[facility]/SA) BP Systolic 2020-11-21 09:30:00 120 mm[Hg] [facility] (LUF/[facility]VID/SA) BP Diastolic 2020-11-21 09:30:00 76 mm[Hg] [facility] ([facility]F/[facility]ID/SA) Body Temperature 2020-11-21 07:15:00 98.1 [degF] [facility] (LUF/[facility]/SA) Pulse Rate 2020-11-21 07:15:00 103 /min [facility] (LUF/[facility]/SA) O2% BldC Oximetry 2020-11-21 07:15:00 100 % [facility] (F/DAVID/SA) Height 2020-11-21 07:15:00 64 [in_i] [facility] (LUF/[facility]/SA) Weight 2020-11-21 07:15:00 103.1 kg [facility] (LUF/DAVID/SA) BMI (Body Mass 2020-11-21 07:15:00 39.2 kg/m2 [facility] (LUF/[facility]/SA) Heart Rate 2020-11-14 13:30:00 69 /min [facility] (LUF/[facility]/SA) Pulse Rate 2020-11-14 13:30:00 70 /min [facility] ([facility]/SA) Respiratory Rate 2020-11-14 13:30:00 10 /min [facility] (LUF/[facility]) O2% BldC Oximetry 2020-11-14 13:30:00 96 % [facility] (LUF/[facility]/SA) BP Systolic 2020-11-14 13:30:00 103 mm[Hg] [facility] ([facility]F/[facility]/SA) BP Diastolic 2020-11-14 13:30:00 77 mm[Hg] [facility] ([facility]/SA) Body Temperature 2020-11-14 09:47:00 97.4 [degF] [facility] ([facility]F/[facility]/SA) Weight 2020-11-14 09:47:00 103 kg [facility] ([facility]F/[facility]/SA) Body Temperature 2020-11-08 08:32:00 98.1 [degF] [facility] (LUF/[facility]/SA) Pulse Rate 2020-11-08 08:32:00 82 /min [facility] ([facility]F/[facility]VDI/SA) Respiratory Rate 2020-11-08 08:32:00 20 /min [facility] ([facility]F/[facility]/SA) O2% BldC Oximetry 2020-11-08 08:32:00 100 % [facility] (LUF/[facility]/SA) BP Systolic 2020-11-08 08:32:00 129 mm[Hg] [facility] ([facility]F/[facility]/SA) BP Diastolic 2020-11-08 08:32:00 72 mm[Hg] [facility] ([facility]) Height 2020-11-08 08:32:00 64 [in_i] [facility] (F/DAVID/SA) Weight 2020-11-08 08:32:00 103.1 kg [facility] (LUF/[facility]/SA) BMI (Body Mass 2020-11-08 08:32:00 39.2 kg/m2 [facility] (LUF/[facility]/SA) Body Temperature 2020-11-01 00:58:00 98.7 [degF] [facility] (LUF/[facility]) Pulse Rate 2020-11-01 00:58:00 104 /min [facility] ([facility]) Respiratory Rate 2020-11-01 00:58:00 20 /min [facility] ([facility]) O2% BldC Oximetry 2020-11-01 00:58:00 99 % [facility] (LUF/[facility]/SA) BP Systolic 2020-11-01 00:58:00 133 mm[Hg] [facility] (LUF/[facility]/SA) BP Diastolic 2020-11-01 00:58:00 101 mm[Hg] [facility] ([facility]F/[facility]/SA) Height 2020-11-01 00:53:00 65 [in_i] [facility] (LUF/[facility]/SA) Weight 2020-11-01 00:53:00 103 kg [facility] (LUF/[facility]/SA) BMI (Body Mass 2020-11-01 00:53:00 37.8 kg/m2 [facility]) [facility] (LUF/DAVID/SA) Body Temperature 2020-10-04 23:51:00 98 [degF] [facility] (LUF/[facility]/SA) Pulse Rate 2020-10-04 23:51:00 96 /min [facility] (LUF/[facility]/SA) Respiratory Rate 2020-10-04 23:51:00 20 /min [facility] ([facility]F/[facility]) O2% BldC Oximetry 2020-10-04 23:51:00 98 % [facility] (LUF/[facility]) BP Systolic 2020-10-04 23:51:00 125 mm[Hg] [facility] (LUF/[facility]/SA) BP Diastolic 2020-10-04 23:51:00 73 mm[Hg] [facility] ([facility]F/[facility]/SA) Height 2020-10-04 23:47:00 65 [in_i] [facility] (LUF/[facility]/SA) Weight 2020-10-04 23:47:00 102.6 kg [facility] (LUF/[facility]ID/SA) BMI (Body Mass 2020-10-04 23:47:00 37.6 kg/m2 [facility] Index) [facility] (LUF/DAVID/SA) Body Temperature 2020-09-18 01:44:00 98.3 [degF] [facility] (LUF/[facility]) Pulse Rate 2020-09-18 01:44:00 116 /min [facility] (LUF/[facility]) Respiratory Rate 2020-09-18 01:44:00 20 /min [facility] ([facility]) O2% BldC Oximetry 2020-09-18 01:44:00 99 % [facility] (LUF/[facility]/SA) BP Systolic 2020-09-18 01:44:00 127 mm[Hg] [facility] (LUF/[facility]/SA) BP Diastolic 2020-09-18 01:44:00 83 mm[Hg] [facility] (LUF/[facility]/SA) Height 2020-09-18 01:40:00 64 [in_i] [facility] (LUF/[facility]/SA) Weight 2020-09-18 01:40:00 102.8 kg [facility] (F/DAVID/SA) BMI (Body Mass 2020-09-18 01:40:00 39.1 kg/m2 [facility] Index) [facility] (LUF/DAVID/SA) Pulse Rate 2020-09-12 02:16:00 88 /min [facility] (LUF/[facility]/SA) O2% BldC Oximetry 2020-09-12 02:16:00 98 % [facility] (LUF/[facility]/SA) BP Systolic 2020-09-12 02:16:00 113 mm[Hg] [facility] (LUF/[facility]/SA) BP Diastolic 2020-09-12 02:16:00 64 mm[Hg] [facility] (LUF/[facility]/SA) Body Temperature 2020-09-12 00:56:00 97.9 [degF] [facility] (LUF/[facility]/SA) Respiratory Rate 2020-09-12 00:56:00 18 /min [facility] (LUF/[facility]/SA) Height 2020-09-12 00:50:00 65 [in_i] [facility] (F/DAVID/SA) Weight 2020-09-12 00:50:00 104.5 kg [facility] (F/DAVID/SA) BMI (Body Mass 2020-09-12 00:50:00 38.3 kg/m2 [facility] Index) [facility] (LUF/DAVID/SA) Pulse Rate 2020-08-22 03:16:00 100 /min [facility] (LUF/DAVID/SA) O2% BldC Oximetry 2020-08-22 03:16:00 95 % [facility] (LUF/[facility]ID/SA) BP Systolic 2020-08-22 03:16:00 129 mm[Hg] [facility] (LUF/[facility]/SA) BP Diastolic 2020-08-22 03:16:00 88 mm[Hg] [facility] (LUF/[facility]ID/SA) Body Temperature 2020-08-22 01:35:00 98.4 [degF] [facility] (LUF/[facility]/SA) Respiratory Rate 2020-08-22 01:35:00 20 /min [facility] (LUF/[facility]/SA) Height 2020-08-22 01:35:00 64 [in_i] [facility] (LUF/[facility]/SA) Weight 2020-08-22 01:35:00 102 kg [facility] (LUF/DAVID/SA) BMI (Body Mass 2020-08-22 01:35:00 38.8 kg/m2 [facility] (LUF/DAVID/SA) Pulse Rate 2020-08-06 03:31:00 83 /min [facility] (LUF/DA[facility]ID/SA) O2% BldC Oximetry 2020-08-06 03:31:00 96 % [facility] (LUF/DAVID/SA) BP Systolic 2020-08-06 03:31:00 127 mm[Hg] [facility] (LUF/DAVID/SA) BP Diastolic 2020-08-06 03:31:00 82 mm[Hg] [facility] (LUF/DAVID/SA) Body Temperature 2020-08-06 01:45:00 98 [degF] [facility] (LUF/DAVID/SA) Respiratory Rate 2020-08-06 01:45:00 20 /min [facility] (LUF/[facility]ID/SA) Height 2020-08-06 01:39:00 66 [in_i] [facility] (LUF/DAVID/SA) Weight 2020-08-06 01:39:00 104.2 kg [facility] (F/DAVID/SA) BMI (Body Mass 2020-08-06 01:39:00 37.3 kg/m2 [facility] (LUF/DAVID/SA) Pulse Rate 2020-07-19 11:16:00 67 /min [facility] (F/[facility]VID/SA) O2% BldC Oximetry 2020-07-19 11:16:00 94 % [facility] (F/DAVID/SA) BP Systolic 2020-07-19 11:16:00 101 mm[Hg] [facility] (F/DAVID/SA) BP Diastolic 2020-07-19 11:16:00 63 mm[Hg] [facility] (F/DAVID/SA) Body Temperature 2020-07-19 07:50:00 98 [degF] [facility] (F/DAVID/SA) Respiratory Rate 2020-07-19 07:50:00 18 /min [facility] (F/DAVID/SA) Weight 2020-07-19 07:50:00 100 kg [facility] ([facility]/DAVID/SA) Heart Rate 2020-07-05 04:46:00 80 /min [facility] (F/DAVID/SA) Respiratory Rate 2020-07-05 04:46:00 15 /min [facility] (F/DAVID/SA) BP Systolic 2020-07-05 04:46:00 134 mm[Hg] [facility] (F/DAVID/SA) BP Diastolic 2020-07-05 04:46:00 60 mm[Hg] [facility] (F/DAVID/SA) Body Temperature 2020-07-05 02:57:00 98 [degF] [facility] ([facility]/DAVID/SA) Pulse Rate 2020-07-05 02:57:00 82 /min [facility] (F/DAVID/SA) O2% BldC Oximetry 2020-07-05 02:57:00 99 % [facility] (F/DAVID/SA) Height 2020-07-05 02:50:00 65 [in_i] [facility] (LUF/DAVID/SA) Weight 2020-07-05 02:50:00 102.1 kg [facility] (LUF/DAVID/SA) BMI (Body Mass 2020-07-05 02:50:00 37.5 kg/m2 [facility] Index) [facility] (LUF/DAVID/SA) Body Temperature 2020-06-07 13:38:00 98.5 [degF] [facility] (LUF/DAVID/SA) Pulse Rate 2020-06-07 13:38:00 95 /min [facility] (LUF/DAVID/SA) Respiratory Rate 2020-06-07 13:38:00 20 /min [facility] (LUF/DAVID/SA) O2% BldC Oximetry 2020-06-07 13:38:00 97 % [facility] (LUF/DAVID/SA) BP Systolic 2020-06-07 13:38:00 129 mm[Hg] [facility] (LUF/DAVID/SA) BP Diastolic 2020-06-07 13:38:00 73 mm[Hg] [facility] (LUF/DAVID/SA) Height 2020-06-07 13:38:00 64 [in_i] [facility] (LUF/DAVID/SA) Weight 2020-06-07 13:38:00 99.79 kg [facility] (LUF/DAVID/SA) BMI (Body Mass 2020-06-07 13:38:00 38 kg/m2 [facility] Index) [facility] (LUF/DAVID/SA) Body Temperature 2020-05-31 09:45:00 99.6 [degF] [facility] (LUF/DAVID/SA) Pulse Rate 2020-05-31 09:45:00 86 /min [facility] (LUF/DAVID/SA) Respiratory Rate 2020-05-31 09:45:00 18 /min [facility] (LUF/DAVID/SA) O2% BldC Oximetry 2020-05-31 09:45:00 98 % [facility] (LUF/DAVID/SA) BP Systolic 2020-05-31 09:45:00 118 mm[Hg] [facility] (LUF/DAVID/SA) BP Diastolic 2020-05-31 09:45:00 78 mm[Hg] [facility] (LUF/DAVID/SA) Height 2020-05-31 09:45:00 64 [in_i] [facility] (LUF/DAVID/SA) Weight 2020-05-31 09:45:00 99.79 kg [facility] (LUF/DAVID/SA) BMI (Body Mass 2020-05-31 09:45:00 38 kg/m2 [facility] Index) [facility] (LUF/DAVID/SA) Heart Rate 2020-04-25 20:01:00 69 /min [facility] (LUF/DAVID/SA) Pulse Rate 2020-04-25 20:01:00 71 /min [facility] (LUF/DAVID/SA) Respiratory Rate 2020-04-25 20:01:00 18 /min [facility] (LUF/DAVID/SA) O2% BldC Oximetry 2020-04-25 20:01:00 100 % [facility] (LUF/DAVID/SA) BP Systolic 2020-04-25 20:01:00 126 mm[Hg] [facility] (LUF/DAVID/SA) BP Diastolic 2020-04-25 20:01:00 86 mm[Hg] [facility] (LUF/DAVID/SA) Body Temperature 2020-04-25 16:50:00 98.4 [degF] [facility] (LUF/DAVID/SA) Height 2020-04-25 16:50:00 64 [in_i] [facility] (LUF/DAVID/SA) Weight 2020-04-25 16:50:00 220 [lb_av] [facility] (LUF/DAVID/SA) BMI (Body Mass 2020-04-25 16:50:00 38 kg/m2 [facility] Index) [facility] (LUF/DAVID/SA) Heart Rate 2020-03-20 18:18:00 112 /min [facility] (LUF/DAVID/SA) Pulse Rate 2020-03-20 18:16:00 93 /min [facility] (LUF/DAVID/SA) O2% BldC Oximetry 2020-03-20 18:16:00 92 % [facility] (LUF/DAVID/SA) BP Systolic 2020-03-20 18:16:00 127 mm[Hg] [facility] (LUF/DAVID/SA) BP Diastolic 2020-03-20 18:16:00 85 mm[Hg] [facility] (LUF/DAVID/SA) Body Temperature 2020-03-20 17:17:00 99.2 [degF] [facility] (LUF/DAVID/SA) Respiratory Rate 2020-03-20 17:17:00 19 /min [facility] (LUF/DAVID/SA) Height 2020-03-20 17:17:00 64 [in_i] [facility] (LUF/DAVID/SA) Weight 2020-03-20 17:17:00 106.9 kg [facility] (LUF/DAVID/SA) BMI (Body Mass 2020-03-20 17:17:00 40.7 kg/m2 [facility] (LUF/DAVID/SA) Respiratory Rate 2020-03-17 10:33:00 16 /min [facility] (LUF/DAVID/SA) Body Temperature 2020-03-17 07:54:00 97.9 [degF] [facility] (LUF/DAVID/SA) Pulse Rate 2020-03-17 07:54:00 83 /min [facility] (LUF/DAVID/SA) O2% BldC Oximetry 2020-03-17 07:54:00 96 % [facility] (LUF/DAVID/SA) BP Systolic 2020-03-17 07:54:00 107 mm[Hg] [facility] (LUF/DAVID/SA) BP Diastolic 2020-03-17 07:54:00 75 mm[Hg] [facility] (LUF/DAVID/SA) Weight 2020-03-17 00:09:00 105.6 kg [facility] (LUF/DAVID/SA) Heart Rate 2020-03-13 15:46:00 81 /min [facility] (LUF/DAVID/SA) Height 2020-03-13 15:31:00 64 [in_i] [facility] Stefanie [facility] (LUF/DAVID/SA) Body Temperature 2020-03-02 15:20:00 98.6 [degF] [facility] (LUF/DAVID/SA) Pulse Rate 2020-03-02 15:20:00 86 /min [facility] (LUF/DAVID/SA) Respiratory Rate 2020-03-02 15:20:00 18 /min [facility] (LUF/DAVID/SA) O2% BldC Oximetry 2020-03-02 15:20:00 99 % [facility] (LUF/DAVID/SA) BP Systolic 2020-03-02 15:20:00 131 mm[Hg] [facility] (LUF/DAVID/SA) BP Diastolic 2020-03-02 15:20:00 85 mm[Hg] [facility] (LUF/DAVID/SA) Height 2020-03-01 10:54:00 64 [in_i] [facility] (LUF/DAVID/SA) Weight 2020-03-01 10:54:00 102 kg [facility] (LUF/DAVID/SA) BMI (Body Mass 2020-03-01 10:54:00 38.8 kg/m2 [facility] (LUF/DAVID/SA) Respiratory Rate 2020-02-27 07:47:00 16 /min [facility] (LUF/DAVID/SA) Body Temperature 2020-02-27 07:32:00 98.2 [degF] [facility] (LUF/DAVID/SA) Pulse Rate 2020-02-27 07:32:00 94 /min [facility] (LUF/DAVID/SA) O2% BldC Oximetry 2020-02-27 07:32:00 95 % [facility] (LUF/DAVID/SA) BP Systolic 2020-02-27 07:32:00 111 mm[Hg] [facility] BP Diastolic 2020-02-27 07:32:00 56 mm[Hg] [facility] (LUF/DAVID/SA) Weight 2020-02-26 02:09:00 99.6 kg [facility] Stefanie [facility] (LUF/DAVID/SA) Height 2020-02-25 10:03:00 64 [in_i] [facility] (LUF/DAVID/SA) Body Temperature 2020-02-25 00:52:00 97.9 [degF] [facility] (LUF/DAVID/SA) Pulse Rate 2020-02-25 00:52:00 118 /min [facility] (LUF/DAVID/SA) Respiratory Rate 2020-02-25 00:52:00 18 /min [facility] (LUF/DAVID/SA) O2% BldC Oximetry 2020-02-25 00:52:00 97 % [facility] (LUF/DAVID/SA) BP Systolic 2020-02-25 00:52:00 133 mm[Hg] [facility] (LUF/DAVID/SA) BP Diastolic 2020-02-25 00:52:00 67 mm[Hg] [facility] (LUF/DAVID/SA) Height 2020-02-25 00:47:00 64 [in_i] [facility] (LUF/DAVID/SA) Weight 2020-02-25 00:47:00 103.4 kg [facility] (LUF/DAVID/SA) BMI (Body Mass 2020-02-25 00:47:00 39.3 kg/m2 [facility] (LUF/DAVID/SA) Body Temperature 2020-01-25 11:32:00 98.4 [degF] [facility] (LUF/DAVID/SA) Pulse Rate 2020-01-25 11:32:00 81 /min [facility] (LUF/DAVID/SA) Respiratory Rate 2020-01-25 11:32:00 14 /min [facility] (LUF/DAVID/SA) O2% BldC Oximetry 2020-01-25 11:32:00 98 % [facility] (LUF/DAVID/SA) BP Systolic 2020-01-25 11:32:00 139 mm[Hg] [facility] (LUF/DAVID/SA) BP Diastolic 2020-01-25 11:32:00 89 mm[Hg] [facility] (LUF/DAVID/SA) Height 2020-01-25 11:32:00 64 [in_i] [facility] (LUF/DAVID/SA) Weight 2020-01-25 11:32:00 100.5 kg [facility] (LUF/DAVID/SA) BMI (Body Mass 2020-01-25 11:32:00 38.2 kg/m2 [facility] Index) [facility] (LUF/DAVID/SA) Heart Rate 2019-11-24 04:16:00 84 /min [facility] (LUF/DAVID/SA) Pulse Rate 2019-11-24 04:16:00 90 /min [facility] (LUF/DAVID/SA) Respiratory Rate 2019-11-24 04:16:00 26 /min [facility] (LUF/DAVID/SA) O2% BldC Oximetry 2019-11-24 04:16:00 98 % [facility] (LUF/DAVID/SA) BP Systolic 2019-11-24 04:16:00 106 mm[Hg] [facility] (LUF/DAVID/SA) BP Diastolic 2019-11-24 04:16:00 69 mm[Hg] [facility] (LUF/DAVID/SA) Body Temperature 2019-11-24 00:54:00 98.4 [degF] [facility] (LUF/DAVID/SA) Height 2019-11-24 00:49:00 65 [in_i] [facility] (LUF/DAVID/SA) Weight 2019-11-24 00:49:00 103 kg [facility] (LUF/DAVID/SA) BMI (Body Mass 2019-11-24 00:49:00 37.8 kg/m2 [facility] Index) [facility] (LUF/DAIVD/SA) Heart Rate 2019-10-07 22:54:00 83 /min [facility] (LUF/DAVID/SA) Respiratory Rate 2019-10-07 22:54:00 14 /min [facility] (LUF/DAVID/SA) Pulse Rate 2019-10-07 22:31:00 89 /min [facility] (LUF/DVAID/SA) O2% BldC Oximetry 2019-10-07 22:31:00 97 % [facility] (LUF/DAVID/SA) BP Systolic 2019-10-07 21:16:00 127 mm[Hg] [facility] (LUF/DAVID/SA) BP Diastolic 2019-10-07 21:16:00 85 mm[Hg] [facility] (LUF/DAVID/SA) Height 2019-10-07 20:41:00 64 [in_i] [facility] (LUF/DAVID/SA) Weight 2019-10-07 20:41:00 100.2 kg [facility] (LUF/DAVID/SA) BMI (Body Mass 2019-10-07 20:41:00 38.1 kg/m2 [facility]) [facility] (LUF/DAVID/SA) Pulse Rate 2019-09-20 04:16:00 96 /min [facility] (LUF/DAVID/SA) Respiratory Rate 2019-09-20 04:16:00 9 /min [facility] (LUF/DAVID/SA) O2% BldC Oximetry 2019-09-20 04:16:00 96 % [facility] (LUF/DAVID/SA) BP Systolic 2019-09-20 04:16:00 97 mm[Hg] [facility] (LUF/DAVID/SA) BP Diastolic 2019-09-20 04:16:00 76 mm[Hg] [facility] (LUF/DAVID/SA) Body Temperature 2019-09-20 00:44:00 98 [degF] [facility] (LUF/DAVID/SA) Height 2019-09-20 00:39:00 65 [in_i] [facility] (LUF/DAVID/SA) Weight 2019-09-20 00:39:00 101.9 kg [facility] (LUF/DAVID/SA) BMI (Body Mass 2019-09-20 00:39:00 37.4 kg/m2 [facility]) [facility] (LUF/DAVID/SA) Pulse Rate 2019-08-17 04:31:00 81 /min [facility] (LUF/DAVID/SA) Respiratory Rate 2019-08-17 04:31:00 13 /min [facility] (LUF/DAVID/SA) O2% BldC Oximetry 2019-08-17 04:31:00 97 % [facility] (LUF/DAVID/SA) BP Systolic 2019-08-17 04:31:00 136 mm[Hg] [facility] (LUF/DAVID/SA) BP Diastolic 2019-08-17 04:31:00 75 mm[Hg] [facility] (LUF/DAVID/SA) Body Temperature 2019-08-17 02:23:00 97.6 [degF] [facility] (LUF/DAVID/SA) Height 2019-08-17 02:19:00 64 [in_i] [facility] (LUF/DAVID/SA) Weight 2019-08-17 02:19:00 100.6 kg [facility] (LUF/DAVID/SA) BMI (Body Mass 2019-08-17 02:19:00 38.3 kg/m2 [facility] (LUF/DAVID/SA) Pulse Rate 2018-12-07 02:33:00 79 /min [facility] (LUF/DAVID/SA) Respiratory Rate 2018-12-07 02:33:00 15 /min [facility] (LUF/DAVID/SA) O2% BldC Oximetry 2018-12-07 02:33:00 96 % [facility] (LUF/DAVID/SA) BP Systolic 2018-12-07 02:33:00 120 mm[Hg] [facility] (LUF/DAVID/SA) BP Diastolic 2018-12-07 02:33:00 76 mm[Hg] [facility] (LUF/DAVID/SA) Body Temperature 2018-12-07 01:10:00 98.2 F [facility] (LUF/DAVID/SA) Height 2018-12-07 01:10:00 64 in [facility] (LUF/DAVID/SA) Weight Measured 2018-12-07 01:10:00 218.25 lbs [facility] (LUF/DAVID/SA) BMI (Body Mass 2018-12-07 01:10:00 37.7 kg/m2 [facility] (LUF/DAVID/SA) Pulse Rate 2018-09-30 19:40:00 70 /min [facility] (LUF/DAVID/SA) Respiratory Rate 2018-09-30 19:40:00 21 /min [facility] (LUF/DAVID/SA) O2% BldC Oximetry 2018-09-30 19:40:00 100 % [facility] (LUF/DAVID/SA) BP Systolic 2018-09-30 19:40:00 124 mm[Hg] [facility] (LUF/DAVID/SA) BP Diastolic 2018-09-30 19:40:00 88 mm[Hg] [facility] (LUF/DAVID/SA) Body Temperature 2018-09-30 19:23:00 99.3 F [facility] (LUF/DAVID/SA) Height 2018-09-30 19:23:00 66 in [facility] (F/DAVID/SA) Weight Measured 2018-09-30 19:23:00 212.52 lbs [facility] (LUF/DAVID/SA) BMI (Body Mass 2018-09-30 19:23:00 34.5 kg/m2 [facility] (LUF/DAVID/SA) Body Temperature 2018-09-01 13:59:00 98 F [facility] (LUF/DAVID/SA) Pulse Rate 2018-09-01 12:15:00 74 /min [facility] (LUF/DAVID/SA) Respiratory Rate 2018-09-01 12:15:00 16 /min [facility] (F/DAVID/SA) O2% BldC Oximetry 2018-09-01 12:15:00 98 % [facility] (LUF/DAVID/SA) BP Systolic 2018-09-01 12:15:00 131 mm[Hg] [facility] (LUF/DAVID/SA) BP Diastolic 2018-09-01 12:15:00 78 mm[Hg] [facility] (LUF/DAVID/SA) Height 2018-09-01 09:16:00 64 in [facility] (F/DAVID/SA) Weight Measured 2018-09-01 09:16:00 214.24 lbs [facility] (LUF/DAVID/SA) BMI (Body Mass 2018-09-01 09:16:00 37 kg/m2 [facility] Index) [facility] (LUF/DAVID/SA) Body Temperature 2018-05-13 10:58:00 99 F [facility] (LUF/DAVID/SA) Pulse Rate 2018-05-13 10:58:00 97 /min [facility] (F/DAVID/SA) Respiratory Rate 2018-05-13 10:58:00 18 /min [facility] (F/DAVID/SA) O2% BldC Oximetry 2018-05-13 10:58:00 98 % [facility] (F/DAVID/SA) BP Systolic 2018-05-13 10:58:00 131 mm[Hg] [facility] (F/DAVID/SA) BP Diastolic 2018-05-13 10:58:00 88 mm[Hg] [facility] (F/DAVID/SA) Height 2018-05-13 10:58:00 64 in [facility] (F/DAVID/SA) Weight Measured 2018-05-13 10:58:00 207.23 lbs [facility] (F/DAVID/SA) BMI (Body Mass 2018-05-13 10:58:00 35.8 [facility]) [facility] (F/DAVID/SA) Body Temperature 2017-12-24 08:04:00 98.7 F [facility] (F/DAVID/SA) Respiratory Rate 2017-12-24 08:04:00 18 /min [facility] (F/DAVID/SA) O2% BldC Oximetry 2017-12-24 08:04:00 98 % [facility] (F/DAVID/SA) BP Systolic 2017-12-24 08:04:00 126 mm[Hg] [facility] (F/DAVID/SA) BP Diastolic 2017-12-24 08:04:00 86 mm[Hg] [facility] (F/DAVID/SA) Weight Measured 2017-12-24 08:04:00 207.23 lbs [facility] (F/DAVID/SA) Body Temperature 2017-06-20 23:28:00 97.4 F [facility] (LUF/DAVID/SA) Respiratory Rate 2017-06-20 23:28:00 20 /min [facility] (LUF/DAVID/SA) O2% BldC Oximetry 2017-06-20 23:28:00 99 % [facility] (LUF/DAVID/SA) BP Systolic 2017-06-20 23:28:00 107 mm[Hg] [facility] (LUF/DAVID/SA) BP Diastolic 2017-06-20 23:28:00 76 mm[Hg] [facility] (LUF/DAVID/SA) Height 2017-06-20 23:28:00 64 in [facility] (LUF/DAVID/SA) Weight Measured 2017-06-20 23:28:00 217.15 lbs [facility] (LUF/DAVID/SA) BMI (Body Mass 2017-06-20 23:28:00 37.5 [facility] (LUF/DAVID/SA) Procedures Procedure Date / Time Performing Clinician Source Performed LIPASE 2023-03-19 04:35:00 Tato Swain Liset [facility] MAGNESIUM 2023-03-19 04:35:00 Tato Swain [facility] COMP. METABOLIC PANEL 2023-03-19 04:35:00 Tato Swain [facility] ([id number]) Medical Branch CBC WITH DIFF 2023-03-19 04:35:00 Tato Swain [facility] URINALYSIS 2023-03-19 04:35:00 Tato Swain [facility] CBC WITH DIFF 2023-03-19 04:35:00 Tato Swain [facility] CONSENT/REFUSAL FOR 2023-03-19 03:58:57 Doctor Unassigned, No Un [facility] DIAGNOSIS AND TREATMENT Name Medical Branch [id number] 2023-01-21 00:00:00 JOE [facility] CBC WITH DIFF 2022-12-25 04:21:00 Komal Correa [facility] CONSENT/REFUSAL FOR 2022-12-25 03:39:49 Doctor Unassigned, No Un iversity [facility] DIAGNOSIS AND TREATMENT Name [facility] TEST, SERUM 2022-12-16 22:19:00 Valentin Box [facility] COMP. METABOLIC PANEL 2022-12-16 22:19:00 Valentin Box [facility] ([id number]) [facility] URINE DRUG (IMMUNOASSAY) 2022-12-16 22:19:00 Valentin Box [facility] - COMPREHENSIVE DRUG [facility] SCREEN CBC WITH DIFF 2022-12-16 22:19:00 Valentin Box [facility] URINALYSIS 2022-12-16 22:19:00 Valentin Box [facility] CONSENT/REFUSAL FOR 2022-12-16 21:59:42 Doctor Unassigned, [facility] DIAGNOSIS AND TREATMENT Name [facility] CT ABDOMEN PELVIS W 2022-11-21 05:31:00 Suzanne Lopez [facility] CONTRAST [facility] POCT TEST 2022-11-21 04:40:00 [facility] LIPASE 2022-11-21 03:35:00 Suzanne Lopez [facility] COMP. METABOLIC PANEL 2022-11-21 03:35:00 Suzanne Lopez [facility] ([id number]) [facility] CBC WITH DIFF 2022-11-21 03:35:00 Suzanne Lopez [facility] URINALYSIS 2022-11-21 03:35:00 Suzanne Lopez [facility] CONSENT/REFUSAL FOR 2022-11-21 02:48:21 Doctor Unassigned, No [facility] DIAGNOSIS AND TREATMENT Name Medical [place] LIPASE 2022-10-26 03:56:00 Valentin Box [facility] COMP. METABOLIC PANEL 2022-10-26 03:56:00 Valentin Box [facility] ([id number]) [facility] CBC WITH DIFF 2022-10-26 03:56:00 Valentin Box [facility] URINE DRUG (IMMUNOASSAY) 2022-10-26 03:50:00 Valentin Box [facility] SCREEN URINALYSIS 2022-10-26 03:50:00 Valentin Box [place] [facility] CONSENT/REFUSAL FOR 2022-10-26 03:29:08 Doctor Unassigned, No [facility] DIAGNOSIS AND TREATMENT Name Medical Branch LIPASE 2022-10-03 05:40:00 [facility] TEST, SERUM 2022-10-03 05:40:00 [facility] COMP. METABOLIC PANEL 2022-10-03 05:40:00 [facility] ([id number] CBC WITH DIFF 2022-10-03 05:40:00 [facility] NOTICE OF PRIVACY 2022-10-03 03:10:55 Doctor Unassigned, No [facility] PRACTICES Name Medical Branch CONSENT/REFUSAL FOR 2022-10-03 03:10:26 [facility] POCT SARS-COV-2 ANTIGEN 2022-06-13 23:43:00 Magdalene Lucia [facility] (BINAX NOW) Medical Branch CT ABDOMEN PELVIS WO 2022-05-07 15:06:09 Ridge Pagan [facility] BASIC METABOLIC PANEL 2022-05-07 14:20:00 Ridge Pagan [facility] (NA, K, CL, CO2, GLUCOSE, Medica l Branch BUN, CREATININE, CA) CBC WITH DIFF 2022-05-07 14:20:00 Ridge Pagan [facility] URINALYSIS 2022-05-07 14:20:00 Ridge Pagan [facility] CONSENT/REFUSAL FOR 2022-05-07 13:49:51 Doctor Unassigned, No [facility] DIAGNOSIS AND TREATMENT [facility] CT ABDOMEN PELVIS WO 2022-02-19 15:49:34 Trice Harris [facility] LIPASE 2022-02-19 14:26:00 Trice Harris [facility] COMP. METABOLIC PANEL 2022-02-19 14:26:00 Trice Harris [facility] ([id number]) Medical Branch CBC WITH DIFF 2022-02-19 14:26:00 Trice Harris [facility] URINALYSIS 2022-02-19 14:26:00 Trice Harris [facility] CONSENT/REFUSAL FOR 2022-02-19 14:11:01 Doctor Unassigned, No [facility] Name Medical Branch POCT MOLECULAR FLU 2021-11-29 22:46:00 Mohan Ameena [facility] INS INFUS DEV LT BASILIC 2020-03-15 00:00:00 [facility] VN PERQ [facility] (LUF/DAVID/SA) ULTRASONOGRAPHY LT UP EXT 2020-03-15 00:00:[address] [facility] VNS GUID [facility] (LUF/DAVID/SA) ROBOTIC LAP LYSIS OF 2020-03-02 12:56:00 [facility] ADHESIONS [facility] (LUF/DAVID/SA) LAPAROSCOPY ENTEROLYSIS 2020-03-02 00:00:00 [facility] SEPARATE PROCEDU [facility] (LUF/DAVID/SA) COLONOSCOPY FLX DX 2020-02-26 00:00:00 [facility] Olamide s W/COLLJ SPEC WHEN PFR [facility] (LUF/DAVID/SA) ROBOTIC RIGHT 2019-03-21 17:09:00 [facility] OOPHORECTOMY LU (Right) Memoria l (LUF/DAVID/SA) CYSTO RGP STENT PLACEMENT 2015-04-20 14:01:[address] [facility] LUF [facility] (LUF/DAVID/SA) CYSTO RGP STENT PLACEMENT 2015-04-20 14:01:[address] [facility] LUF [facility] (LUF/DAVID/SA) Hysterectomy [facility] (LUF/DAVID/SA) Total thyroidectomy [facility] (LUF/DAVID/SA) section [facility] (LUF/DAVID/SA) ABDOMINAL ADHESIONS [facility] REMOVED [facility] (LUF/DAVID/SA) Extracorporeal shockwave [facility] lithotripsy [facility] (LUF/DAVID/SA) MULTIPLE CYSTECTOMYS DONE [facility] (LUF/DAVID/SA) MULTIPLE CYSTECTOMYS DONE [facility] (F/DAVID/SA) ABDOMINAL ADHESIONS [facility] ([facility]/DAVID/SA) Appendectomy [facility] ([facility]/SA) Plan of Care Planned Activity Planned Date Details Comments Source Future Scheduled 2023-01-24 COVID-19 Vaccination [facility] Test 15:47:07 (#1) [code = COVID-19 [facility] (#1)] Center Future Scheduled 2023-01-24 COVID-19 Vaccination [facility] [...] Nba, STLMLC STLMLC Common 08:27:02 Josué 0127 [facility] 2021-07-26 Outpatient Nba, STLMLC STLMLC Common 14:20:31 Josué 1203 [facility] 2021-07-26 Outpatient Nba, STLMLC STLMLC Common 14:05:52 Josué 1027 [facility] 2021-07-26 Outpatient Nba, STLMLC STLMLC Common 12:01:28 Josué 1103 [facility] 2021-07-26 Outpatient Nba, STLMLC STLMLC Common 11:56:42 Josué 1019 [facility] 2021-07-26 Outpatient Nba, STLMLC STLMLC Common 11:49:38 Josué 0928 [facility] of [place] 2021-07-26 Outpatient Nba, STLMLC STLMLC Common 11:48:02 Josué 0922 [facility] [place] 2021-07-26 Outpatient Nba, STLMLC STLMLC Common 11:47:47 Josué 0921 [facility] [place] 2021-07-[address] [facility] Common 11:42:15 Josué 0901 [facility] 2021-07-[address] [facility] Common 11:32:09 Josué 0720 [facility] 2023-03-18 2023-03-19 Emergency X Tato SWAIN [facility] ERT [id number] Univers 23:02:00 01:14:00 ity of [facility] 2023-03-18 2023-03-19 Emergency Tato Swain [facility] 1.2.840.114 10 [id number] Univers 23:02:00 01:14:00 Liset GAONA 350.1.13.10 i ty [facility] 4.2.7.2.686 [facility] [id number] [place] [address] [place] 2023-03-02 2023-03-[address] YURYKHUSHI EMD [id number] 23:30:00 03:54:00 LOWER [facility] QUADRANT Memoria PAIN l (LUF/LI V/SA) 2023-03-02 2023-03-02 Inpatient [facility] 9fb8 5601-b [facility] 00:[facility]:00 00:00:00 PAAUILO j88-09p7-t Gutierrez [facility], 93b-2f078e Memor ia [address] [id number] l [place] (LUF/LI AVE, V/SA) [place]IÁN ROSA [address] 2023-03-02 2023-03-02 Inpatient [facility] 7ef0 6bd1-[address] [facility] 00:00:00 00:00:00 PAAUILO 876-40b4-8 Gut[facility]rez [facility], 57a-4d6edc Memor ia [address] 82v144 l [place] (LUF/LI AVE, V/[place]) [place] [address] 2023-01-21 2023-01-23 [facility] [id number] [facility] 16:42:00 10:30:00 Lion 41 [facility] 2022-12-242022-12-24 Emergency X CORREA, [facility] ERT [id number] Univers 22:54:00 23:38:00 KOMAL melo [facility] 2022-12-24 2022-12-24 Emergency [facility] 1.2.622.257 [id number] Univers 22:54:00 23:38:00 Komal CANDELARIA 350.1.13.10 i ty of [place] 4.2.7.2.686 [facility] [id number] [address] 2022-12-16 2022-12-16 Emergency X VASUT, [facility] ERT [id number] Univers 17:03:00 19:23:00 VALENTIN melo [facility] 2022-12-16 2022-12-16 Emergency Vasut, [facility] 1.2.466.568 [id number] [id number] Univers 17:03:00 19:23:00 Valentin GAONA 350.1.13.10 i ty of [place] 4.2.7.2.686 [facility] [id number] [address] 2022-11-20 2022-11-21 Emergency X [facility] ERT [id number] Univers 21:54:00 02:10:00 SUZANNE melo [facility] 2022-11-20 2022-11-21 Emergency [facility] 1.2.840.114 10 [id number] Univers 21:54:00 02:10:00 Suzanne GAONA 350.1.13.10 ity of [place] 4.2.7.2.686 [facility] [id number] [address] 2022-10-25 2022-10-26 Emergency X VASUT, [facility] ERT [id number] Univers 22:33:00 01:21:00 VALENTIN melo [facility] 2022-10-25 2022-10-26 Emergency Vasut, [facility] 1.2.846.082 [id number] Univers 22:33:00 01:21:00 Valentin GAONA 350.1.13.10 i ty of [place] 4.2.7.2.686 [facility] [id number] [address] 2022-10-02 2022-10-03 Emergency X RIDDLE, [facility] ERT [id number] Univers 22:34:00 02:31:00 MONTSERRAT sandhu [facility] 2022-10-02 2022-10-03 Emergency [place], [facility] 1.2.250.993 [id number] Univers 22:34:00 02:31:00 Montserrat GAONA 350.1.13.10 ity [facility] 4.2.7.2.686 [facility] [id number] [address] 2022-08-12 2022-08-12 Outpatient FOG_Dunn_Wa AOSM AOSM 643 9319-20 Adelia 00:00:00 00:00:00 Jhon [id number] [facility] 2022-07-22 2022-07-22 Outpatient FOG_Dunn_Wa AOSM AOSM 643 9319-20 Adelia 00:00:00 00:00:00 Jhon [id number] [facility] 2022-07-06 2022-07-06 Outpatient FOG_Dunn_Wa AOSM AOSM 643 9319-20 Adelia 00:00:00 00:00:00 Jhon [id number] [facility] 2022-06-17 2022-06-17 Outpatient FOG_Dunn_Wa AOSM AOSM 643 9319-20 Adelia 00:00:00 00:00:00 Jhon [id number] [facility] 2022-06-13 2022-06-13 Outpatient R KHARI [facility] [id number] Univers 17:20:00 17:41:53 MAGDALENETERA melo [facility] 2022-06-13 2022-06-13 Urgent Magdalene Lucia [facility] 1..840.114 9 [id number] Univers 17:20:00 17:41:53 Care Unknown, Attending HEALTH 350.1.13.10 ity [facility] 4.2.7.2.686 Jacques as SUE?BLEA [id number] Dc dical [address] MEDICAL OFFICE BUILDING 2022-06-13 2022-06-13 Telephone Khari [facility] 1.2.217.730 [id number] Univers 00:00:00 00:00:00 [facility] 350.1.13.10 it y of [place] 4.2.7.2.686 Jacques as SUE?BLEA [id number] Dc dical [address] MEDICAL OFFICE BUILDING 2022-05-13 2022-05-13 Outpatient FOG_Ingrid_Wa AOSM AOSM 643 9319-20 Adelia 00:00:00 00:00:00 Jhon [id number] [facility] 2022-05-07 2022-05-07 Emergency X EJ [facility] ERT [id number] Univers 07:57:00 09:45:00 RIDGE [facility] 2022-05-07 2022-05-07 Emergency [facility] 1.2.032.568 [id number] [facility] 07:57:00 09:45:00 Azam [place] 350.1.13.10 i ty of [place] 4.2.7.2.686 [place] [facility] [id number] [address] 2022-05-07 2022-05-07 Outpatient FOG_Ingrid_Vita AOSM AOSM 643 9319-20 Adelia 00:00:00 00:00:00 Jhon [id number] [facility] 2022-05-07 2022-05-07 Patient Doctor REHAN 1.2.840.114 [id number] Univers 00:00:00 00:00:00 Secure Msg Unassigned, ROS[place] 350.1.13.10 [place] 4.2.7.2.686 Jacques as [phone] [address] 2022-04-23 2022-04-23 Emergency PACO Sloan [id number] [facility] 09:39:00 10:55:00 [facility] 2022-02-19 2022-02-19 Emergency X [facility] ERT [id number] Univers 09:15:00 11:05:00 TRICE melo [facility] 2022-02-19 2022-02-19 Emergency Steven [facility] 1.2.840.114 [id number] Univers 09:15:00 11:05:00 Trice GAONA 350.1.13.10 i ty of [facility] 4.2.7.2.686 [place] [facility] [id number] [place] [id number] Branch 2021-11-29 2021-11-29 [facility] 1.2.840.114 [id number] Univers 17:40:00 18:00:00 Care [facility] 350.1.13.10 it y of [place] 4.2.7.2.686 Jacques as SUE?BLEA [id number] [address] MEDICAL OFFICE BUILDING 2021-11-29 2021-11-29 [facility]patient [facility] [id number] Univers 17:40:00 17:40:00 [facility] 2021-11-29 2021-11-29 Outpatient Irwin [facility] [id number] Univers 17:40:00 17:40:00 [facility] 2021-10-26 2021-10-26 Office GEOVANI Blas, 1.2.840.1 [id number] Univers 09:45:00 10:47:06 Visit Praveen 51524.1.1 ity of 3.412.2.7 [place] .3.924186 .8 [facility] 2021-10-26 2021-10-26 Travel 1.2.840.1 1.2.243.052 [id number] Univers 00:00:00 00:00:00 54266.1.1 350.1.13.41 ity of 3.412.2.7 2.[place].3.698 [place] .3.298880 084.8 .8 [facility] 2021-10-15 2021-10-15 LONI REYES EMD [id number] 22:25:00 22:45:00 CONSCIOUS EKTA calle SIMULATION Ryan watts (TIERA/YUKI Rolon/) 2021-10-15 2021-10-15 Inpatient [facility] OF [place] [id number] 4a53-b [facility] 00:[facility]:00 00:00:00 PAAUILO 896-4ae3-9 [facility], [id number]-992825 Memor ia [address] 097eaa stefanie [place] (LUF/LI AVE, V/SA) JULIÁN ROSA [address] 2021-10-15 2021-10-15 Inpatient [facility] 2f6e c8b8-[address] 00:00:00 00:00:00 PAAUILO 053-4dfa-8 [facility], 336-5eb8eb Memor ia [address] 66e57b stefanie [place] (LUF/LI AVE, V/SA) [place] ROS[place] [address] 2021-08-29 2021-08-29 Outpatient Irwin CARRANZA [facility] [id number] Univers 16:20:00 16:20:00 PATRICK phoebe [facility] 2021-08-07 2021-08-07 Emergency EM Tyree [facility] [id number] [facility] 09:36:00 12:55:00 Olga 19 [facility] 2021-08-01 2021-08-02 Emergency X [facility] ERT [id number] Univers 22:00:00 01:17:00 LEANNE [facility] 2021-08-01 2021-08-02 Emergency [facility] 1.2.798.860 [id number] Univers 22:00:00 01:17:00 Leanne GAONA 350.1.13.10 i [facility] 4.2.7.2.686 [facility] [phone] [facility] 084 [address] 2021-06-28 2021-06-28 Outpatient Irwin LUCIA [facility] [id number] Univers 17:30:00 17:30:00 MAGDALENE melo [facility] 2021-06-22 2021-06-22 Letter REHAN Chaves 1.2.840.114 [id number] Univers 00:00:00 00:00:00 (Out) Eve LEE 350.1.13.10 it [facility] 4.2.7.2.686 [facility] [id number] [facility] 019 Branch 2021-06-22 2021-06-22 Park Carranza [facility] 1.2.840.114 [id number] Univers 00:00:00 00:00:00 RanMovidius 350.1.13.10 it y of [facility] 4.2.7.2.686 Jacques as SUE?BLEA [id number] [address] MEDICAL OFFICE [facility] 2021-06-21 2021-06-21 Outpatient R RODRIGUEZZoltan [facility] [id number] Univers 11:00:00 12:14:12 RANIA ity of [facility] 2021-06-21 2021-06-21 Urgent BenitoQuinten casillasprabhakar [facility] 1.2.840.114 [id number] Univers 11:00:00 11:20:00 Pratik Preston [facility] 350.1.13.10 ity of [place] 4.2.7.2.686 Jacques as SUE?BLEA [id number] [address] MEDICAL OFFICE [facility] 2021-06-21 2021-06-21 Telephone Tere [facility] 1.2.840.114 [id number] Univers 00:00:00 00:00:00 RanMovidius 350.1.13.10 it y of [place] 4.2.7.2.686 Jacques as SUE?BLEA [id number] [address] MEDICAL OFFICE [facility] 2021-06-21 2021-06-21 Letter Doctor REHAN 1.2.840.114 [id number] Univers 00:00:00 00:00:00 (Out) Unassigned, ROSA 350.1.13.10 ity of [place] [facility] 4.2.7.2.686 Jacques as [id number] [address] 2021-05-30 2021-05-30 (TEL) STLMLC STLMLC [id number] Co mmon 00:00:00 00:00:00 [facility] 2021-05-29 2021-05-29 (TEL) STLMLC STLMLC [id number] Co mmon 00:00:00 00:00:00 [facility] 2021-04-26 2021-04-26 (TEL) STLMLC STLMLC [id number] Co mmon 00:00:00 00:00:00 Spirit - [facility] 2021-04-23 2021-04-[address] [facility] [id number] 9119 [facility] 00:46:00 02:08:00 D SETH Menchacalucia ABDOMINAL Memori a PAIN l (LUF/LI V/SA) 2021-04-23 2021-04-23 Inpatient [facility] fb11 ce73-5 [facility] 00:00:00 00:00:00 PAAUILO y80-3y22-1 [facility], 4r6-vd3nv3 Memor ia [address] a89c0d l [place] (LUF/LI AVE, V/SA) [place], JULIÁN [address] 2021-04-23 2021-04-23 Inpatient [facility] 6aab 1878-0 [facility] 00:00:00 00:00:00 PAAUILO z5m-5868-6 [facility], [id number] Memor ia [address] 822c23 l [place] (LUF/LI AVE, V/[place]) [place] [address] 2021-03-24 2021-03-24 ANXIETY 1 COTTON, [facility] 37111 [id number] [facility] 10:25:00 12:27:00 DISORDER REHAN [facility] UNSPECIFIE [place], Memor ia D [address] l [place] (LUF/LI AVE, V/SA) [place], JULIÁN [address] 2021-03-24 2021-03-24 Inpatient [facility] f871 cc2a-c [facility] 00:00:00 00:00:00 PAAUILO 9aa-405b-9 [facility], [id number] Memor ia [address] cf90e3 l [place] (LUF/LI AVE, V/SA) [place], JULIÁN [address] 2021-03-24 2021-03-24 Inpatient [facility] e945 ff19-c [facility] 00:00:00 00:00:00 PAAUILO t60-7v39-o [facility], 88b-033ffa Memor ia [address] 683da2 l [place] (LUF/LI AVE, V/SA) [place] [address] 2021-03-23 2021-03-23 Orders Nofijaqueline, 1.2.840.1 [id number] Univers 00:00:00 00:00:00 Only Viktoriya Charlton 45800.1.1 ity of 3.412.2.7 [place] .3.945170 .8 [facility] 2021-03-10 2021-03-10 UTI SITE E LEONARDUK, [facility] [id number] [facility] [address] 10:29:00 13:50:00 NOT [facility], Memori a [address] l [place] (LUF/LI AVE, V/SA) [place] [address] 2021-03-10 2021-03-10 Inpatient [facility] 16e7 6598-b [facility] 00:00:00 00:00:00 PAAUILO g7w-9153-7 [facility], n4j-183k7j Memor ia [address] 8ebb0b l [place] (LUF/LI AVE, V/SA) [place] [address] 2021-03-10 2021-03-10 Inpatient [facility] 518c 3339-c [facility] 00:00:00 00:00:00 PAAUILO t97-4ri1-3 [facility], p6v-1lc87s Memor ia [address] f904e5 l [place] (LUF/LI AVE, V/[place]) [place] [address] 2021-02-23 2021-02-23 RIGHT E [facility] [id number] [address] [facility] [address] 08:15:00 12:44:00 [facility], Memoria PAIN [address] l [place] (LUF/LI AVE, V/SA) [place] [address] 2021-02-23 2021-02-23 Inpatient [facility] 89b5 d1de-[address] 00:00:00 00:00:00 PAAUILO 09f-406d-9 [facility], 74d-24f9de Memor ia [address] e8fcf1 l [place] (LUF/LI AVE, V/SA) [facility] [address] 2021-02-23 2021-02-23 Inpatient [facility] [place] 139750 e20f-[address] 00:00:00 00:00:00 PAAUILO 1ef-425c-a [facility], 5af-90n523 Memor ia [address] 1655de l [place] (LUF/LI AVE, V/[place]) [place] [address] 2021-01-10 2021-01-10 CALCCINDY DYKES, [facility] [place] 413260 [id number] [facility] 00:21:00 03:06:00 OF KIDNEY SETH [facility] [place], Memoria [address] l [place] (LUF/LI AVE, V/SA) [place] [address] 2021-01-10 2021-01-10 Inpatient [facility] OF [facility] 2205-c [facility] 00:00:00 00:00:00 PAAUILO q90-4n18-v [facility], 72a-11f6e9 Memor ia [address] 3fb6a8 l [place] (LUF/LI AVE, V/[place]) [place] [address] 2021-01-10 2021-01-10 Inpatient [facility] OF [facility] fe83-e [facility] 00:00:00 00:00:00 PAAUILO ff6-4d87-9 [facility], 32e-3f75c9 Memor ia [address] e09ed4 l [place] (LUF/LI AVE, V/SA) [place] [address] 2020-12-27 2020-12-27 Emergency [facility] Zarina [id number] Sylva 00:00:00 00:00:[address] 2020-12-22 2020-12-22 Outpatient 3 LONI MURILLO TIC [id number] 09:00:00 09:00:00 SKYE Dhaliwal Memoria l (LUF/LI V/SA) 2020-12-13 2020-12-13 Emergency EM SHEY Perez [facility] [id number] [facility] 01:53:00 06:36:00 Tangela [facility] 2020-12-12 2020-12-12 RIGHT Jake COTTON, [facility] [place] [id number] [facility] 12:33:00 14:00:00 LOWER [facility] QUADRANT [place], Memoria PAIN [address] [place] (LUF/LI AVE, V/SA) [place], JULIÁN [address] 2020-12-12 2020-12-12 Inpatient [facility] e2c0 cb47-b [facility] 00:[facility]:00 00:00:00 PAAUILO 82f-45d0-a [facility], 13e-0f9f6d Memor ia [address] e3m298 l [place] (LUF/LI AVE, V/SA) [place] [address] 2020-12-12 2020-12-12 Inpatient [facility] 43ed f7fe-[address] 00:00:00 00:00:00 PAAUILO c52-20qk-d [facility], 316-4p283j Memor ia [address] 70ade3 l [place] (LUF/LI AVE, V/[place]) [place] [address] 2020-12-08 2020-12-08 UNSPECIFIE Jake SOTOMAYOR, [facility] [id number] 09:44:00 12:26:00 [facility]IN [address] l [place] (LUF/LI AVE, V/SA) [place] [address] 2020-12-08 2020-12-08 Inpatient [facility] 6a3f a794-a [facility] 00:00:00 00:00:00 PAAUILO 3v1-1r68-4 [facility], 9b1-6b5075 Memor ia [address] 9973a7 l [place] (LUF/LI AVE, V/SA) [place] [address] 2020-11-25 2020-11-25 UNSPECIFIE [facility] [id number] 00:13:00 00:30:00 D [facility]BDOMINAL [place] PAIN [address] l [place] (LUF/LI AVE, V/[place]) [place] [address] 2020-11-25 2020-11-25 Inpatient [facility] 3041 db6a-[address] 00:00:00 00:00:00 PAAUILO fb6-4754-b [facility], x1e-vhm783 Memor ia [address] 841f4f l [place] (LUF/LI AVE, V/SA) [place] [address] 2020-11-25 2020-11-25 Inpatient [facility] a3eb ed11-a [facility] 00:[facility]:00 00:00:00 PAAUILO l62-2lj8-8 [facility], [id number] Memor ia [address] ea5dda l [place] (LUF/LI AVE, V/SA) [facility] [address] 2020-11-21 2020-11-21 ENDOMETRIO 1 [facility] [id number] [facility] [address] 07:14:00 09:53:00 SIS [facility] UNSPECIFIE [place], Memor ia D [address] l [place] (LUF/LI AVE, V/SA) [place] [address] 2020-11-21 2020-11-21 Inpatient [facility] 90f0 278b-0 [facility] 00:00:00 00:00:00 PAAUILO 4k1-39ay-8 [facility], 4bb-5eeded Memor ia [address] 1x2326 l [place] (LUF/LI AVE, V/SA) [facility] [place] [address] 2020-11-21 2020-11-21 Inpatient [facility] 3b21 9c7a-9 [facility] 00:00:00 00:00:00 PAAUILO 30a-405e-8 [facility], [id number] Memor ia [address] 3040c4 l [place] (LUF/LI AVE, V/[place]) [place] [address] 2020-11-14 2020-11-14 GASTRITIS 1 LONI COTTON EMD [id number] 09:27:00 14:37:00 UNS REHAN Dhaliwal WITHOUT Memoria BLEEDING l (LUF/LI V/SA) 2020-11-14 2020-11-14 Inpatient [facility] d4fe d3e2-[address] 00:00:00 00:00:00 PAAUILO 3cf-4b7a-a [facility], 2ad-d46ca7 Memor ia [address] 2d56cc l [place] (LUF/LI AVE, V/SA) [facility] [address] 2020-11-14 2020-11-14 Inpatient [facility] 324e 65b9-b [facility] 00:00:00 00:00:00 PAAUILO 464-403c-8 [facility], [id number] Memor ia [address] g5600c l [place] (LUF/LI AVE, V/SA) [place], [place] [address] 2020-11-08 2020-11-08 OTHER E YURY, [facility] 25910 [id number] [facility] [address] 08:04:00 13:13:00 CHRONIC REHAN [facility], Memoria [address] [place] (LUF/LI AVE, V/SA) [place] [address] 2020-11-08 2020-11-08 Inpatient [facility] 8079 b52c-c [facility] 00:00:00 00:00:00 PAAUILO ed8-4ae3-8 [facility], [id number] Memor ia [address] cf6d84 l [place] (LUF/LI AVE, V/SA) [place] [address] 2020-11-08 2020-11-08 Inpatient [facility] [id number] [facility] 00:00:00 00:00:00 PAAUILO [id number] [facility], [id number] Memor ia [address] [id number] l [place] ([address], V/SA) [place], [place] [address] 2020-11-08 2020-11-08 Inpatient [facility] [id number] [facility] 00:[facility] 00:00:00 PAAUILO [id number] [facility], [id number] Memor ia [address] [id number] l [place] ([address], V/SA) [place], [place] [address] 2020-11-01 2020-11-01 NAUSEA E WANDA, [facility] [id number] [facility] [address] 00:27:00 03:55:00 WITH CLEMENT [facility], Memoria UNSPECIFIE [address] D [place] ([address], V/SA) [place] [address] 2020-11-01 2020-11-01 Inpatient [facility] [id number] [facility] 00:00:00 PAAUILO [id number] [facility], [id number] Mem[address] [address] [id number] l [place] ([address], V/SA) [place] [address] 2020-11-01 2020-11-01 Inpatient [facility] [id number] 00:00:00 00:00:00 PAAUILO [id number] [facility], [id number] Mem[address] ia [address] [id number] l [place] ([address], V/SA) [place] [address] 2020-10-04 2020-10-05 OTHER E RODRICK, [facility] [id number] 23:32:00 01:00:00 CHRONIC JUAN [facility], Memoria [address] [place] ([address], V/SA) [place] [address] 2020-10-04 2020-10-04 Inpatient [facility] [id number] [id number] [facility] 00:[facility] 00:00:00 PAAUILO [id number] [facility], [id number] Memor ia [address] [id number] l [place] ([address], V/SA) [place] [address] 2020-10-04 2020-10-04 Inpatient [facility] [id number] [id number] 00:00:00 00:00:00 PAAUILO [id number] [facility], [id number] Memor [address] [id number] l [place] ([address], V/SA) [place] [address] 2020-09-18 2020-09-18 OTHER E [facility] [id number] 01:00:00 04:44:00 CHRONIC PAAUILO [facility] [place], Memoria [address] ([address], V/SA) [place] [address] 2020-09-18 2020-09-18 Inpatient [facility] [id number] 00:00:00 00:00:00 PAAUILO [id number] [facility], [id number] Memor ia [address] [id number] l [place] ([address], V/SA) [place] [address] 2020-09-18 2020-09-18 Inpatient [facility] [id number] [id number] [facility] 00:[facility]:00 00:00:00 PAAUILO [id number] [facility], [id number] Memor ia [address] [id number] l [place] ([address], V/SA) [place] [address] 2020-09-12 2020-09-12 ENDOMETRIO E RODRICK, [facility] [id number] [facility] 00:46:00 02:38:00 SIS JUAN [facility] UNSPECIFIE [place], Memor ia D [address] ([address], V/SA) [place] [address] 2020-09-12 2020-09-12 Inpatient [facility] [id number] [id number] [facility] 00:00:00 00:00:00 PAAUILO [id number] [facility], [id number] Memor ia [address] [id number] l [place] ([address], V/SA) [place] [address] 2020-09-12 2020-09-12 Inpatient [facility] [id number] [facility] 00:[facility] 00:00:00 PAAUILO [id number] [facility], [id number] Mem[address] ia [address] [id number] l [place] ([address], V/SA) [place] [address] 2020-08-22 2020-08-22 OTHER E SANACI, [facility] [id number] 01:13:00 03:24:00 CHRONIC [facility], [facility] [address], V/SA) [place] [address] 2020-08-22 2020-08-22 Inpatient [facility] [id number] [facility] [facility] 00:[facility] 00:00:00 PAAUILO [id number] [facility], [id number] Memor ia [address] [id number] ([address]F/LI A[address], V/[place]) [place] [address] 2020-08-22 2020-08-22 Inpatient [facility] [id number] [facility] 00:00:00 PAAUILO [id number] [facility], [id number] [facility] [address] [id number] l [address] ([address]/LI [address], V/SA) [place] [address] 2020-08-06 2020-08-06 Inpatient Jake MENSAH, [facility] [id number] 01:21:00 03:35:00 [facility] [address]/LI [address], V/SA) [place] [address] 2020-08-06 2020-08-06 Inpatient [facility] [id number] [facility] 00:[facility]:00 00:00:00 PAAUILO [id number] [facility], [id number] [facility] [address] [id number] [address] ([address]/LI [address], V/SA) [place] [address] 2020-07-19 2020-07-19 RIGHT Jake COTTON, [facility] [id number] 07:50:00 11:20:00 LOWER [facility], Memoria PAIN [address], V/SA) [place] [address] 2020-07-19 2020-07-19 Inpatient [facility] [id number] [facility] 00:[facility]:00 00:00:00 PAAUILO [id number] [facility], [id number] Memor ia [address] [id number] ([address]/LI [address], V/SA) [place] [address] 2020-07-19 2020-07-19 Inpatient [facility] [id number] [facility] 00:00:00 00:00:00 PAAUILO [id number] [facility], [id number] Memor ia [address] [id number] l [address] ([address], V/SA) [facility] [place] [address] 2020-07-05 2020-07-05 OTHER Jake MENSAH, [facility] [id number] [facility] 02:42:00 05:00:00 CHRONIC [facility]UAN [facility] [address] ([address], V/SA) [place] [address] 2020-07-05 2020-07-05 Inpatient [facility] [id number] [facility] 00:00:00 00:00:00 PAAUILO [id number] [facility], [id number] Memor ia [address] [id number] [address] ([address], V/SA) [place] [address] 2020-07-05 2020-07-05 Inpatient [facility] [id number] [facility] 00:00:00 00:00:00 PAAUILO [id number] [facility], [id number] Memor ia [address] [id number] ([address]/LI [address], V/SA) [place] [address] 2020-06-10 2020-06-10 (TEL) [facility] [id number] Co mmon 00:00:00 00:00:00 Spirit - [facility] 2020-06-07 2020-06-07 Inpatient 1 YURY, [facility] [id number] [facility] 12:56:00 19:04:[address] [facility] [address], V/SA) [place] [address] 2020-06-07 2020-06-07 Inpatient [facility] [id number] [facility] 00:00:00 00:00:00 PAAUILO [id number] [facility], [id number] [facility] [id number] [address], V/SA) [place] [address] 2020-05-31 2020-05-31 Inpatient E YURY, [facility] [place] [id number] [facility] [address] 09:31:00 14:13:00 [facility] [address], V/SA) [place] [address] 2020-05-10 2020-05-10 Outpatient STLMLC STLMLC [id number] Common 00:00:00 00:00:00 [facility] 2020-05-09 2020-05-09 Outpatient STLMLC STLMLC [id number] Common 00:00:00 00:00:00 [facility] 2020-05-05 2020-05-05 Outpatient STLMLC STLMLC [id number] Common 00:00:00 00:00:00 [facility] 2020-05-02 2020-05-02 Outpatient STLMLC STLMLC [id number] Common 00:00:00 00:00:00 [facility] 2020-05-02 2020-05-02 Outpatient STLMLC STLMLC [id number] Common 00:00:00 00:00:00 [facility] 2020-04-29 2020-04-29 Outpatient STLMLC STLMLC [id number] Common 00:00:00 00:00:00 [facility] 2020-04-25 2020-04-25 LEFT LOWER E [facility] [place] [id number] 16:46:00 21:30:00 [facility] [address], V/SA) [place] [address] 2020-04-22 2020-04-22 Outpatient STLMLC STLMLC [id number] Common 00:00:00 00:00:00 [facility] 2020-04-20 2020-04-20 PROC&TX [facility] [id number] [facility] [address] 15:39:00 16:03:00 [facility] OUT PT [address] ([address]F/[address], V/SA) [place] [address] 2020-04-20 2020-04-20 Outpatient STLMLC STLMLC [id number] Common 00:00:00 00:00:00 [facility] 2020-04-20 2020-04-20 Outpatient STLMLC STLMLC [id number] Common 00:00:00 00:00:00 [facility] 2020-04-15 2020-04-15 Outpatient STLMLC STLMLC [id number] Common 00:00:00 00:00:00 [facility] 2020-04-13 2020-04-13 Outpatient STLMLC STLMLC [id number] Common 00:00:00 00:00:00 [facility] 2020-04-12 2020-04-12 Outpatient STLMLC STLMLC [id number] Common 00:00:00 00:00:00 [facility] 2020-04-11 2020-04-11 Outpatient STLMLC STLMLC [id number] Common 00:00:00 00:00:00 [facility] 2020-04-08 2020-04-08 Outpatient STLMLC STLMLC [id number] Common 00:00:00 00:00:00 [facility] 2020-04-06 2020-04-06 Outpatient STLMLC STLMLC [id number] Common 00:00:00 00:00:00 [facility] 2020-04-04 2020-04-04 Outpatient STLMLC STLMLC [id number] Common 00:00:00 00:00:00 [facility] 2020-03-31 2020-03-31 Outpatient STLMLC STLMLC [id number] Common 00:00:00 00:00:00 [facility] 2020-03-29 2020-03-29 Outpatient GEOVANI BLAS MDA MDA [id number] 00:00:00 00:00:00 PRAVEEN payton 2020-03-29 2020-03-29 Outpatient STLMLC STLMLC [id number] Common 00:00:00 00:00:00 [facility] 2020-03-28 2020-03-28 Outpatient STLMLC STLMLC [id number] Common 00:00:00 00:00:00 [facility] 2020-03-22 2020-03-22 Outpatient STLMLC STLMLC [id number] Common 00:00:00 00:00:00 [facility] 2020-03-21 2020-03-21 Outpatient STLMLC STLMLC [id number] Common 00:00:00 00:00:00 [facility] 2020-03-20 2020-03-20 FEDE COTTON, [facility] [id number] [facility] 17:08:00 22:56:00 ABDOMINAL REHAN [facility] PAIN [facility] UNSPECIFIE [address] ([address]F/LI A[address], V/SA) [place] [address] 2020-03-14 2020-03-17 CELLULITIS E TRUX, [facility] [place] [facility] [id number] 14:54:00 11:30:00 OF UATSDIN [facility] ABDOMINAL [facility] WALL [address] ([address], V/SA) [place] [address] 2020-03-03 2020-03-03 Outpatient [facility] [id number] Common 13:33:00 13:33:00 Clinics Clinics [facility] I Health I [facility] 2020-03-02 2020-03-02 FE RYAN WOLFE, [facility] [id number] 05:58:00 15:35:00 PERITON LIZBETH [facility] POSTINFECT [address] ([address], V/SA) [place] [address] 2020-03-02 2020-03-02 Outpatient STLMLC STLMLC [id number] Common 00:00:00 00:00:00 [facility] 2020-03-01 2020-03-01 Outpatient [facility] [id number] Common 09:15:00 09:15:00 Clinics [facility] 2020-02-29 2020-02-29 Outpatient [facility] [id number] Common 09:30:00 09:30:00 [facility] 2020-02-25 2020-02-27 LOWER E YURY, [facility] [place] [id number] [facility] 13:21:00 12:09:00 [facility]BDOMINAL RE[facility]AN [facility] [place], [facility] UNSPECIFIE [address] ([address]F/LI A[address], V/SA) [place] [address] 2020-02-25 2020-02-25 UNSPECIFIE E RODRICK, [facility] [place] [address] [id number] [facility] 00:40:00 05:00:00 D JUAN [facility] ABDOMINAL [place], [facility] [address] ([address], V/SA) [place] [address] 2020-01-25 2020-01-25 LOW BACK 1 YURY, [facility] [place] 413260 [id number] [facility] 11:28:00 13:15:00 PAIN RHEAN [facility], [facility] [address] ([address], V/SA) [place] [address] 2020-01-18 2020-01-18 [facility] [id number] Common 11:45:00 11:45:00 [facility] 2019-12-09 2019-12-09 OTHER E [facility] [place] [address] [id number] [facility] [address] 03:03:00 05:08:00 CHRONIC [facility] PAIN [place], [facility] [address] ([address], V/SA) [place] [address] 2019-11-24 2019-11-24 UNSPECIFIE E [facility] [place] [id number] 00:31:00 05:30:00 D [facility] ABDOMINAL [place], [facility] PAIN [address] ([address], V/SA) [place] [address] 2019-10-07 2019-10-07 RIGHT 1 YURY, [facility] [place] [id number] 20:35:00 23:10:00 LOWER REHAN PAAUILO [facility] [place], Memoria PAIN [address] ([address], V/SA) [place] [address] 2019-09-20 2019-09-20 RIGHT 1 YURY, [facility] [place] [id number] 00:33:00 04:23:00 LOWER REHAN PAAUILO [facility] [place], Memoria PAIN [address] ([address], V/SA) [facility] [place] [address] 2019-08-17 2019-08-17 UNSPECIFIE 1 RIVEAR, [facility] [place] [id number] 02:18:00 04:45:00 D UATSDIN PAAUILO Luke s ABDOMINAL [place], [facility] PAIN [address] ([address], V/SA[place] [address] 2019-04-22 2019-04-22 Outpatient [facility] [id number] Common 12:03:00 12:03:00 Clinics [facility] 2019-04-14 2019-04-14 Outpatient [facility] [id number] Common 16:12:00 16:12:00 [facility] 2019-04-06 2019-04-06 Outpatient [facility] [id number] Common 12:16:00 12:16:00 Clinics [facility] 2019-03-31 2019-03-31 Outpatient [facility] [id number] Common 14:00:00 14:00:00 [facility] 2018-12-07 2018-12-07 UNSPECIFIE 1 QUINTIN BRITO [facility] [id number] [facility] 01:06:00 04:45:00 D OVARIAN PAAUILO Luke s CYST RIGHT [place], [facility] SIDE [address] ([address], V/SA[place] [address] 2018-10-29 2018-10-29 N-PRSS CHR BLAKESTAD, [facility] [id number] [facility] 06:59:00 23:59:[address] [facility] [address] ([address], V/SA) [place] [address] 2018-10-22 2018-10-22 N-PRSS CHR BLAKESTAD, [facility] [id number] [facility] 07:20:00 23:59:[address] [facility] [address] ([address], V/SA) [place] [address] 2018-10-15 2018-10-15 N-PRSS CHR O BLALUCIATAD, [facility] [id number] [facility] 07:08:00 23:59:[address] [facility] [address] ([address], V/SA) [place] [address] 2018-09-30 2018-10-01 INFCT FOL 1 SAHBNAM, [facility] [id number] [facility] 18:46:00 01:05:00 PRC SUPF DIMAS [facility] SIT INIT [address] ([address], V/SA) [facility] [place] [address] 2018-09-01 2018-09-01 OTH 1 WANDA, [facility] [place] [id number] 09:12:00 14:00:00 NONINFL CLEMENT [facility] D/O OVARY [facility] TUBE&BRD [address] ([address]/LI [address], V/[place]) [place] [address] 2018-05-13 2018-05-13 Inpatient 1 WANDA, [facility] [id number] 10:52:00 13:46:00 CLEMENT [facility] [address] ([address], V/SA) [facility] [place] [address] 2017-12-24 2017-12-24 UNSPECIFIE 1 QUINTIN BRITO [facility] [id number] [facility] 07:51:00 13:52:00 D OVARIAN [facility] CYST RIGHT [place], Memor ia SIDE [address] ([address], V/SA) [place] [address] 2017-06-20 2017-06-21 HYDRONPHRO 1 RODRICK, [facility] [id number] [facility] 23:01:00 03:55:00 S JUAN [facility] RENL&URETR [place], Memor ia L CALCUL [address] ([address]F/[address], V/SA) [place] [address] 2017-05-13 2017-05-13 OTHER 3 MERLE, [facility] [place] [id number] [facility] [address] 15:40:00 23:59:00 FATIGUE ASA [facility], Memoria [address] ([address], V/SA) [place] [address] Results Test Description Test Time Test Comments [...] 33.8 g/dL 31.6-35.1 RDW-SD (test code = 84983-0) 43.0 fL 39.0-49.9 RDW-CV (test code = 788-0) 13.1 % 12.0-15.5 PLT (test code = 777-3) 273 See_Comment [Au tomated message] The system which ge nerated this result transmit michael reference range: 166 - 35 8 10*3/?L. The reference range was not used to interpret th is result as normal/abnormal . MPV (test code = 13106-4) 8.9 fL 9.5-12.9 L NRBC/100 WBC (test code = 0.0 See_Comment [ Automated message] The 4208024454) system which ge nerated this result transmit michael reference range: 0.0 - 10 .0 /100 WBCs. The reference r bruce was not used to interpr et this result as normal/abnor mal. NRBC x10^3 (test code = See_Comment [Au tomated message] The 8633557881) system which ge nerated this result transmit michael reference range: 10*3/?L. The reference range was not u sed to interpret this result as normal/abnormal . GRAN MAT (NEUT) % (test code 65.3 % = 770-8) IMM GRAN % (test code = 2.20 % 7102623902) LYMPH % (test code = 736-9) 25.8 % MONO % (test code = 5905-5) 6.2 % EOS % (test code = 713-8) 0.1 % BASO % (test code = 706-2) 0.4 % GRAN MAT x10^3(ANC) (test 6.19 10*3/uL 1.88-7.09 code = 2726032935) IMM GRAN x10^3 (test code = 0.21 10*3/uL 0.00-0.06 H 4693888591) LYMPH x10^3 (test code = 2.45 10*3/uL 1.32-3.29 731-0) MONO x10^3 (test code = 0.59 10*3/uL 0.33-0.92 742-7) EOS x10^3 (test code = 0.03-0.39 L 711-2) BASO x10^3 (test code = 0.04 10*3/uL 0.01-0.07 704-7) TOXIC CHANGES (test code = Present A 803-7) Lab Interpretation (test Abnormal code = 36607-2) [facility]. METABOLIC PANEL ([id number])2023-03-19 05:03:48 Test Item Value Reference Range Interpretation Comments NA (test code = 138 mmol/L 135-145 4891366980) K (test code = 4.5 mmol/L 3.5-5.0 6729554087) CL (test code = 107 mmol/L 98-108 8200260036) CO2 TOTAL (test code = 22 mmol/L 23-31 L 8823683630) AGAP (test code = 9 2-16 5069495485) BUN (test code = 19 mg/dL 7-23 4662621873) GLUCOSE (test code = 81 mg/dL 70-110 8233631478) CREATININE (test code = 0.57 mg/dL 0.50-1.04 7444033838) TOTAL BILI (test code = 0.3 mg/dL 0.1-1.3 8961555998) CALCIUM (test code = 9.4 mg/dL 8.6-10.6 1204286722) T PROTEIN (test code = 6.9 g/dL 6.3-8.2 8020757934) ALBUMIN (test code = 4.2 g/dL 3.5-5.0 4929718949) ALK PHOS (test code = 73 U/L 34-122 0592527981) ALTv (test code = 23 U/L 5-35 1742-6) AST(SGOT) (test code = 25 U/L 13-40 4000227443) eGFR (test code = 120.0 mL/min/1.73m2 3024495448) RENZO (test code = RENZO) Association of [...] tests). Lab Interpretation Abnormal (test code = 16310-8) [facility]48 Test Item Value Reference Range Interpretation Comments MAGNESIUM (test code = 9766502619) 2.0 mg/dL 1.7-2.4 Lab Interpretation (test code = Normal 34239-1) [facility] MET[facility]OLIC PANEL (36507)2023-03-19 05:03:48 Test Item Value Reference Range Interpretation Comments NA (test code = 138 mmol/L 135-145 3688169214) K (test code = 4.5 mmol/L 3.5-5.0 4304402105) CL (test code = 107 mmol/L 98-108 6841387417) CO2 TOTAL (test code = 22 mmol/L 23-31 L 6388642359) AGAP (test code = 9 2-16 7747757425) BUN (test code = 19 mg/dL 7-23 3976659880) GLUCOSE (test code = 81 mg/dL 70-110 1700893424) CREATININE (test code = 0.57 mg/dL 0.50-1.04 3753894923) TOTAL BILI (test code = 0.3 mg/dL 0.1-1.6 1872456860) CALCIUM (test code = 9.4 mg/dL 8.6-10.6 3984701555) T PROTEIN (test code = 6.9 g/dL 6.3-8.2 7662407380) ALBUMIN (test code = 4.2 g/dL 3.5-5.0 4902115713) ALK PHOS (test code = 73 U/L 34-122 5363952535) ALTv (test code = 23 U/L 5-35 1742-6) AST(SGOT) (test code = 25 U/L 13-40 1365010519) eGFR (test code = 120.0 mL/min/1.73m2 3316338938) RENZO (test code = RENZO) Association of [...] tests). Lab Interpretation Abnormal (test code = 55813-7) [facility]03[facility]48 Test Item Value Reference Range Interpretation Comments MAGNESIUM (test code = 2469798169) 2.0 mg/dL 1.7-2.4 Lab Interpretation (test code = Normal 90200-8) [facility] 05:03:27 Test Item Value Reference Range Interpretation Comments LIPASE (test code = 8584204335) 109 U/L 0-220 Lab Interpretation (test code = Normal 78152-1) [facility] 05:03:27 Test Item Value Reference Range Interpretation Comments LIPASE (test code = 4019605154) 109 U/L 0-220 Lab Interpretation (test code = Normal 17731-3) [facility]/PELVIS W/[id number] 02:12:15Hx stone disease [facility] (LUF/DAVID/SA)Name: LAUREN BETH : 1985 Sex: FEXAM: CT ABDOMEN/PELVIS W/CONTRASTHISTORY: Provided Indication: Right lower quadrant pain, n/v. hx ofhysterectomy, appendectomy, cholecystectomy, gastric sleeve, c- section, renalstonesCOMPARISON: None available.TECHNIQUE: Contiguous axial imaging from the level of the lung bases throughthe pubic symphysis was performed after the uncomplicated administration ofintravenous contrast. Coronal and sagittal reconstructions were obtained. AllCT scans at this facility use dose modulation, iterative reconstruction, and/orweight-based dosing when appropriate to reduce radiation dose to as low asreasonably ach ievable.FINDINGS:LOWER THORAX: The lungs bases are clear.LIVER: No focal hepatic lesions. Hepatic steatosis. Subcentimeter hypodensityin the right hepatic lobe may reflect a cyst. Normal contour.GALLBLADDER AND BILIARY TREE: Cholecystectomy.SPLEEN: Normal.PANCREAS: Normal.ADRENAL GLANDS: Normal.KIDNEYS: Normal enhancement and no hydronephrosis, Nonobstructing stones of theleft kidney.GI TRACT: Prior sleeve gastrectomy. Appendectomy. No obstruction.PERITONEUM AND RETROPERITONEUM/LYMPH NODES: UnremarkableVESSELS: Normal caliber abdominal aorta.PELVIS/BLADDER: Hysterectomy.BONES AND SOFT TISSUES: No suspicious lytic or sclerotic bony lesions.Subcutaneous emphysema in the right lower back soft tissues.IMPRESSION:No acute process identified to explain the patient's symptoms.Nonobstructing left nephrolithiasis.Subcutaneous emphysema in the right lower back soft tissues.Post surgical changes and other n on-emergent findings as above.Electronically signed by: Daniele Velasquez 03/03/2023 2:08Dictated By: ALVINA VELASQUEZADate: 03/03/2023 02:11[facility] [id number] 01:29:00 Test Item Value Reference Range Interpretation [...] code = CO2) 19.0 mmol/l 24.0-29.0 L [facility] URINALYSIS WITHOUT [id number] 01:22:00 Test Item Value Reference Range Interpretation Comments Color (test code = Yellow Lt. Yellow A UCOLR) Clarity (test code = Slightly Cloudy UCLAR) Glucose (test code = Negative Negative N UGLUC) Bilirubin (test code Negative Negative N = UBILI) Ketones (test code = Negative Negative N UKET) Specific Drayden >=1.030 1.005-1.030 A (test code = USPGR) [...] Negative Negative N (test code = ULEUK) [facility] CBC WITH AUTO [id number] 01:20:00 Test Item Value Reference Range Interpretation [...] code = IG%) 0.5 % 0.0-0.4 H [id number] 14:39:00 Test Item Value Reference Range Interpretation Comments SURGICAL (test code = SR) RUN DATE: 01/23/23 [facility] PAGE 1 RUN TIME: 3349 Specimen Inquiry RUN USER: INTERFACE FLASH ENT: LAUREN BETH LOC: [place] Juliette #: [id number] AGE/SX: 37/F [facility]: Lion Maxwell MD : 86 BED: 1 DIS: 01/23/23 STATUS: DIS IN TLOC: SPEC #: [id number]:[id number] RECD: 01/22/23-1018 STATUS: KWAME GARCIA #: [id number] MELISSA: 01/21/23-[address]: Lion Maxwell MD ENTERED: 01/22/23-1022 SP TYPE: SURGICAL OTHR DR: Cricket Referred Maco Lewis MD, Stevenson C MDORDERED: [id number], ANATOMIC SPEC, SPECIMEN TRACK COPIES TO: Self Referred JoshuaMaco MD [address] [facility] [address] [place], [place] [phone] [place] [address] [facility] [address] [place], [place] [phone] Kory Erwin MD [address] [address] PROCEDURES: [id number] (01/22/23) SPECIMEN TRACK (01/22/23) TISSUES: A. PELVIS [...] tissue processing and slide preparation performed at [facility], [place] [address] CONTINUED ON NEXT PAGE RUN DATE: 01/23/23 [facility] PAGE 2 RUN TIME: 1439 Specimen Inquiry RUN USER: INTERFACE SPEC #: [id number]:[facility]:[id number] PATIENT: BETHLAUREN Islas #[id number] (Continued) ------- MICROSCOPIC DESCRIPTION Microscopic examination is performed and the findings are incorporated into the finaldiagnosis. Please see diagnosis for findings. ----- Signed SIGNATURE ON FILE Vidhi Brewster 01/23/23 1431 END OF REPORT CBC W/AUTO [id number] 07:07:00 Test Item Value Reference Range Interpretation [...] DIFF REQUIRED NO DIFF/SCN CRITERIA SLIDE R EVIEW (test code = MDIFF) CONSISTA NT WITH AUTO DIFFERENTI AL. BASIC METABOLIC [id number] 04:40:00 Test Item Value Reference Range Interpretation [...] L = CA) - CT ABD PELVIS [id number] 13:04:00 [facility] 1985 Sex: F Name: LAUREN BETH [facility] : 1985 Age/S: 37 / F [id number] [place] Unit #: [id number]: Julián Holcomb [address] Phys: Jessica Arias Acct: [id number] Dis Date: Status: REG ER PHONE #: [phone] Exam Date: 01/20/20231 FAX #: Reason: RLQ pain EXAMS: CPT: [id number] CT ABD PELVIS W/CONT [address] CT abdomen and pelvis with contrast 01/20/2023 CLINICAL INDICATION: Abdominal painCOMPARISON: 08/07/2021 LOCATION: W1 TECHNIQUE: Helical CT axial [...] 01/20/2023 at 1300. at 1304 Reported and signedby: Bobby Flores M.D. PAGE 1 Signed Report (CONTINUED) Name: [facility] [place] :1985 Age/S: 37 / F [address] Unit #: [id number] Loc: [place] [address] Phys: Jessica Arias Acct: [id number] Dis Date: Status: REG ER PHONE #: [phone] Exam Date: 01/20/20237 FAX #: Reason: RLQ pain EXAMS: CPT: [id number] CT ABD PELVIS W/CONT 62839 (Continued) CC: Maco Lewis MD; Jeison Haque DO; Jessica MUNOZ Technologist:RT Basilia(R) CTDI: DLP: Trnscb Date/Time: 01/20/2023 (1304) [email or web address] Orig Print D/T: S: 01/20/2023 (1138) PAGE 2 Signed ReportCOMPREHENSIVE METABOLIC [id number] 12:28:00 Test Item Value Reference Range Interpretation [...] TOTAL (test code = ALKP) HCG SERUM [id number] 12:23:00 Test Item Value Reference Range Interpretation Comments HCG SERUM QUAL (test SERUM NEGATIVE SCREEN NEGATIVE code = HCGQL) UA RFLX MICR CULT IF [id number] 11:58:00 Test Item Value Reference Range Interpretation [...] DIFF/SCN CRITERIA = MDIFF) COMP. METABOLIC PANEL (64875)2022-12-16 23:24:15 Test Item Value Reference Range Interpretation Comments NA (test code = 140 mmol/L 135-145 3567337630) K (test code = 4.6 mmol/L 3.5-5.0 7177031206) CL (test code = 108 mmol/L 98-108 0474465047) CO2 TOTAL (test code = 18 mmol/L 23-31 L 8911315676) AGAP (test code = 14 2-16 2832495773) BUN (test code = 9 mg/dL 7-23 4310622961) GLUCOSE (test code = 83 mg/dL 70-110 0708851543) CREATININE (test code = 0.55 mg/dL 0.50-1.04 0240319182) TOTAL BILI (test code = 1.0 mg/dL 0.1-1.8 6528818253) CALCIUM (test code = 9.3 mg/dL 8.6-10.6 4022925729) T PROTEIN (test code = 8.2 g/dL 6.3-8.2 0599701167) ALBUMIN (test code = 4.8 g/dL 3.5-5.0 7152131545) ALK PHOS (test code = 89 U/L 34-122 4208926503) ALTv (test code = 21 U/L 5-35 1742-6) AST(SGOT) (test code = 34 U/L 13-40 6791767148) eGFR (test code = 125.1 mL/min/1.73m2 4843391993) RENZO (test code = RENZO) Association of [...] tests). Lab Interpretation Abnormal (test code = 92239-3) [facility], [id number] 23:22:04 Test Item Value Reference Range Interpretation Comments PREG SERUM (test code Negative = 4984766325) RENZO (test code = RENZO) Less than 10 IU/L. ?If low titer or ectopic is suspected, resubmit specimen in 48-72 hours. [facility] WITH [id number] 22:51:12 Test Item Value Reference Range Interpretation Comments WBC (test code = 12.44 See_Comment H [Automated 9140-2) message] The sy stem which generated this result transmitted reference range : 4.30 - 11.10 10*3/?L. The reference range was not used to interpret this result as normal/abnormal . RBC (test code = 4.69 See_Comment [Automated 024-8) message] The sy stem which generated this [...] RDW-SD (test code = 43.8 fL 39.0-49.9 94877-8) RDW-CV (test code = 13.9 % 12.0-15.5 788-0) PLT (test code = 316 See_Comment [Automated 807-3) message] The sy stem which generated this result transmitted reference range : 166 - 358 10*3/ ?L. The reference r bruce was not used to interpret this result as normal/abnormal . MPV (test code = 8.9 fL 9.5-12.9 L 87409-9) NRBC/100 WBC (test 0.0 See_Comment [Automat ed code = 9810301516) message] The system which generated this result transmitted reference range : 0.0 - 10.0 /100 WBCs. The refer ence range was not u sed to interpret th is result as normal/abnormal . NRBC x10^3 (test code See_Comment [Auto mated = 2981289576) message] The s ystem which generated this result transmitted reference range : 10*3/?L. The reference range was not used to interpret this result as normal/abnormal . GRAN MAT (NEUT) % 75.8 % (test code = 770-8) IMM GRAN % (test code 0.70 % = 2952510157) LYMPH % (test code = 16.5 % 736-9) MONO % (test code = 5.1 % 5905-5) EOS % (test code = 1.6 % 713-8) BASO % (test code = 0.3 % 706-2) GRAN MAT x10^3(ANC) 9.42 10*3/uL 1.88-7.09 H (test code = 5741195581) IMM GRAN x10^3 (test 0.09 10*3/uL 0.00-0.06 H code = 8412638097) LYMPH x10^3 (test code 2.05 10*3/uL 1.32-3.29 = 731-0) MONO x10^3 (test code 0.64 10*3/uL 0.33-0.92 = 742-7) EOS x10^3 (test code = 0.20 10*3/uL 0.03-0.39 711-2) BASO x10^3 (test code 0.04 10*3/uL 0.01-0.07 = 704-7) Lab Interpretation Abnormal (test code = 29992-5) [facility] [id number] 04:40:00 Test Item Value Reference Range Interpretation Comments POCT PREG (test code = 1605) Negative On board controls acceptable with Yes C Line (test code = 3574) POCT PREG LOT # (test code = 3575 930518 POCT PREG TEST DATE (test 02/06/2024 code = 3576) Lab Interpretation (test code = Normal 93614-9) [facility]. METABOLIC PANEL (47112)2022-10-26 04:29:54 Test Item Value Reference Range Interpretation Comments NA (test code = 138 mmol/L 135-145 0065235304) K (test code = 4.0 mmol/L 3.5-5.0 7339268511) CL (test code = 110 mmol/L 98-108 H 9125082401) CO2 TOTAL (test code = 19 mmol/L 23-31 L 4843392365) AGAP (test code = 9 2-16 9526781023) BUN (test code = 13 mg/dL 7-23 0941276616) GLUCOSE (test code = 155 mg/dL 70-110 H 5844870504) CREATININE (test code = 0.84 mg/dL 0.50-1.04 8512662356) TOTAL BILI (test code = 0.3 mg/dL 0.1-1.6 8688410894) CALCIUM (test code = 8.7 mg/dL 8.6-10.6 9787483616) T PROTEIN (test code = 6.6 g/dL 6.3-8.2 0678463558) ALBUMIN (test code = 4.1 g/dL 3.5-5.0 5245634303) ALK PHOS (test code = 79 U/L 34-122 5663066799) ALTv (test code = 24 U/L 5-35 2-6) AST(SGOT) (test code = 24 U/L 13-40 3017248001) eGFR (test code = 76.7 mL/min/1.73m2 6219736375) RENZO (test code = RENZO) Association of [...] tests). Lab Interpretation Abnormal (test code = 47515-0) [facility]IP[facility]2023-04-28 04:29:14 Test Item Value Reference Range Interpretation Comments LIPASE (test code = 8926578763) 96 U/L 0-220 Lab Interpretation (test code = Normal 31339-6) [facility] WITH [id number] 04:16:10 Test Item Value Reference Range Interpretation Comments WBC (test code = 10.69 See_Comment [Automated 9028-2) message] The sy stem which generated this result transmitted reference range : 4.30 - 11.10 10*3/?L. The reference range was not used to interpret this result as normal/abnormal . RBC (test code = 4.25 See_Comment [Automated 527-1) message] The sy stem which generated this [...] RDW-SD (test code = 41.8 fL 39.0-49.9 42638-2) RDW-CV (test code = 13.0 % 12.0-15.5 788-0) PLT (test code = 305 See_Comment [Automated 777-3) message] The sy stem which generated this result transmitted reference range : 166 - 358 10*3/ ?L. The reference r bruce was not used to interpret this result as normal/abnormal . MPV (test code = 9.1 fL 9.5-12.9 L 04544-4) NRBC/100 WBC (test 0.0 See_Comment [Automat ed code = 8113540639) message] The system which generated this result transmitted reference range : 0.0 - 10.0 /100 WBCs. The refer ence range was not u sed to interpret th is result as normal/abnormal . NRBC x10^3 (test code See_Comment [Auto mated = 9046655456) message] The s ystem which generated this result transmitted reference range : 10*3/?L. The reference range was not used to interpret this result as normal/abnormal . GRAN MAT (NEUT) % 55.4 % (test code = 770-8) IMM GRAN % (test code 0.80 % = 3712278903) LYMPH % (test code = 33.2 % 736-9) MONO % (test code = 4.2 % 5905-5) EOS % (test code = 5.8 % 713-8) BASO % (test code = 0.6 % 706-2) GRAN MAT x10^3(ANC) 5.92 10*3/uL 1.88-7.09 (test code = 8661463152) IMM GRAN x10^3 (test 0.09 10*3/uL 0.00-0.06 H code = 4763035904) LYMPH x10^3 (test code 3.55 10*3/uL 1.32-3.29 H = 731-0) MONO x10^3 (test code 0.45 10*3/uL 0.33-0.92 = 742-7) EOS x10^3 (test code = 0.62 10*3/uL 0.03-0.39 H 711-2) BASO x10^3 (test code 0.06 10*3/uL 0.01-0.07 = 704-7) Lab Interpretation Abnormal (test code = 44469-7) [facility] SARS-COV-2 ANTIGEN (BINAX NOW)2022-06-13 23:43:00 Test Item Value Reference Range Interpretation Comments POCT SARS-COV-2 ANTIGEN (test code = Positive Not Detected A 30145-0) On board controls acceptable with C Yes Line (test code = 3574) Lab Interpretation (test code = Abnormal 25234-1) [facility]- [facility] SHOULDER 2 + V [id number] 16:42:00 [facility] 1985 Sex: F Patient Name: LAUREN BETH Unit No: [id number] EXAMS: CPT CODE: [id number] XR SHOULDER 2 + [place] [address] Left shoulder 3 views COMMENT: There is no evidence for fracture or subluxation. No focal bony lesionsare seen. at 1642 Reported and signed by: Angelo Hardin MD CC: Truman Quintero MD Technologist: Jeannette Garcia RT.(R) Transcribed D / (1642) t.EDISON.L [facility] NAME: LAUREN BETH [address] PHYS: Truman Alfaro MD : 1985 AGE: 36 SEX: F [place], [place] [address] LOC: JOHNNIE PHONE #: [phone] EXAM DATE: 04/23/2022 STATUS: DEP ER FAX #: [phone] RAD #: D/C DT PAGE 1 Signed Report Patient Name: LAUREN BETH Unit No: [id number] EXAMS: CPT CODE: [id number] XR SHOULDER 2 + V LT [address] (Continued) Orig Print D/T: S: 04/23/2022 (1645) [facility] NAME: LAUREN BETH [address] [facility] PHYS: Truman Alfaro MD : 1985 AGE: 36 SEX: F [place] [id number] LOC: JOHNNIE PHONE #: [phone] EXAM DATE: 04/23/2022 STATUS: DEP ER FAX #: [phone] RAD #: D/C DT PAGE 2 Signed ReportCOMP. METABOLIC PANEL (45574)2022-02-19 14:56:05 Test Item Value Reference Range Interpretation Comments NA (test code = 137 mmol/L 135-145 9365992087) K (test code = 4.2 mmol/L 3.5-5 6230374611) CL (test code = 108 mmol/L 98-108 9716274032) CO2 TOTAL (test code = 19 mmol/L 23-31 L 8853405927) AGAP (test code = 2-16 1141482421) BUN (test code = 14 mg/dL 7-23 0605723401) GLUCOSE (test code = 133 mg/dL 70-110 H 2923437210) CREATININE (test code = 0.56 mg/dL 0.5-1.04 4820570185) TOTAL BILI (test code = 0.4 mg/dL 0.1-1.6 5922470975) CALCIUM (test code = 8.9 mg/dL 8.6-10.6 8376042178) T PROTEIN (test code = 6.5 g/dL 6.3-8.2 5812602806) ALBUMIN (test code = 4.0 g/dL 3.5-5 4229627646) ALK PHOS (test code = 84 U/L 34-122 1121942138) ALTv (test code = 23 U/L 5-35 1742-6) AST(SGOT) (test code = 24 U/L 13-40 4921405884) eGFR (test code = mL/min/1.73m2 4428857342) RENZO (test code = RENZO) Association of [...] tests). Lab Interpretation Abnormal (test code = 57802-8) [facility]2022-08-22 14:55:44 Test Item Value Reference Range Interpretation Comments LIPASE (test code = 2353989796) 81 U/L 0-220 Lab Interpretation (test code = Normal 17912-5) [facility] WITH [id number] 14:36:26 Test Item Value Reference Range Interpretation Comments WBC (test code = See_Comment [Automated 8990-2) message] The sy stem which generated this [...] RDW-SD (test code = 43.9 fL 39-49.9 67037-9) RDW-CV (test code = 13.7 % 12-15.5 788-0) PLT (test code = See_Comment [Automated 777-3) message] The sy stem which generated this result transmitted reference range : 166 - 358 10*3/ ?L. The reference r bruce was not used to interpret this result as normal/abnormal . MPV (test code = 8.5 fL 9.5-12.9 L 92470-1) NRBC/100 WBC (test See_Comment [Automat ed code = 0017004919) message] The system which generated this result transmitted reference range : 0.0 - 10.0 /100 WBCs. The refer ence range was not u sed to interpret th is result as normal/abnormal . NRBC x10^3 (test code See_Comment [Auto mated = 8977732156) message] The s ystem which generated this result transmitted reference range : 10*3/?L. The reference range was not used to interpret this result as normal/abnormal . GRAN MAT (NEUT) % 58.7 % (test code = 770-8) IMM GRAN % (test code 1.10 % = 0396281981) LYMPH % (test code = 31.6 % 736-9) MONO % (test code = 6.8 % 5905-5) EOS % (test code = 1.4 % 713-8) BASO % (test code = 0.4 % 706-2) GRAN MAT x10^3(ANC) 3.30 10*3/uL 1.88-7.09 (test code = 9652743936) IMM GRAN x10^3 (test 0.06 10*3/uL 0-0.06 code = 4711658383) LYMPH x10^3 (test code 1.77 10*3/uL 1.32-3.29 = 731-0) MONO x10^3 (test code 0.38 10*3/uL 0.33-0.92 = 742-7) EOS x10^3 (test code = 0.08 10*3/uL 0.03-0.39 711-2) BASO x10^3 (test code 0.01-0.07 = 704-7) Lab Interpretation Abnormal (test code = 94291-6) [facility]LE[facility]ULAR [id number] 22:58:14 Test Item Value Reference Range Interpretation Comments POCT Molecular FluA (test code = Negative Negative 79840-7) POCT Molecular FluB (test code = Negative Negative 74349-7) Lab Interpretation (test code = Normal 07807-3) [facility] FUNCTION PANEL (LIVER)2021-10-16 13:57:00 Test Item Value [...] (test code = 0.2 mg/dl 0.0-1.1 IBIL) [id number] 13:57:00 Test Item Value Reference Range Interpretation Comments Lipase (test code = LIPA) 114 U/L 73-393 STLAMYLASE, [id number] 13:57:00 Test Item Value Reference Range Interpretation Comments Amylase (test code = AMYL) 51 U/L 25-115 [facility] [id number] 22:45:00 Test Item Value Reference Range Interpretation [...] code = CO2) 22.1 mmol/l 24.0-29.0 L [facility] CBC WITH AUTO [id number] 22:43:00 Test Item Value Reference Range Interpretation [...] = IG%) 0.2 % 0.0-0.4 STLMLHEPATIC FUNCTION [id number] 13:03:00 Test Item Value Reference Range Interpretation [...] 96 Unit/L 45-117 N code = ALKP) [id number] 13:03:00 Test Item Value Reference Range Interpretation Comments LIPASE (test code = LIP) 83 Unit/L 114-286 L BASIC METABOLIC [id number] 13:03:00 Test Item Value Reference Range Interpretation [...] 8.5-10.1 N UA RFLX MICR CULT IF [id number] 12:44:00 Test Item Value Reference Range Interpretation [...] OF URINE: CLEAN CATCH- CT ABD PELVIS W/[id number] 12:27:00 [facility] 1985 Sex: F Name: LAUREN BETH [facility] : 1985 Age/S: 36 / F [address] Unit #: [id number]: Julián Holcomb [address] Phys: Marco Hilton NP Acct: [id number] Dis Date: Status: REG ER PHONE #: [phone] Exam Date: 08/07/20213 FAX #: Reason: LLQ ABD PAIN EXAMS: CPT: [id number] CT ABD PELVIS W/CONT 65401 EXAM: CT ABDOMEN AND PELVIS WITH CONTRAST. 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 CC: Olga Clements DO; Marco Hilton NP Technologist:Elmer Laguna RT(R) CTDI: DLP: Trnscb Date/Time: 08/07/2021 (1427) VereniceMD16 Orig Print D/T: S: 08/07/2021 (2669) PAGE 2 Signed ReportCBC W/AUTO [id number] 12:23:00 Test Item Value Reference Range Interpretation [...] DIFF/SCN CRITERIA = MDIFF) [facility]AVIRUS 2019 [facility])2021-03-24 17:04:00 Test Item Value Reference Range Interpretation Comments FT (test code Negative Negative N The Pos[employer] SARS -CoV-2 = COVID) (qualifier value) Reagents f or BD MAX System, the [employer] Covid-19, and t yuan Cepheid Covid-1 9 [...] contact the Coronavirus [facility] at [phone]. [id number] 12:37:00 Test Item Value Reference Range Interpretation [...] 0.5-1.3 code = CREA) EGFR if >60 Maltese (test code mL/min/1.73m\\ = EGFRAA) S\\2 EGFR if Non- >60 Estimate d Glomerular Maltese (test code mL/min/1.73m\\ Filtrat ion Rate (eGFR) [...] of c hronic kidney failure. STLMLSTAT LAB [id number] 12:11:00 Test Item Value Reference Range Interpretation [...] after the clini felipa event. STLMLPT AND [id number] 12:09:00 Test Item Value Reference Range Interpretation Comments Protime (test code 9.5 seconds 9.5-12.1 = PT) INR (test code = 0.9 0.9-1.1 INR results are intended INR) ONLY to monitor Oral Anticoagulant t herapy in stablized patie nts. The INR Therapeutic Range is 2.0 - 3.0 Patie nts with a mechanical he art, the INR Range is 2. 5 - 3.5 [id number] 12:09:00 Test Item Value Reference Range Interpretation Comments aPTT (test code = PTT) 22.3 seconds 23.9-30.7 L STLMLSTAT LAB CBC WITH AUTO [id number] 11:57:00 Test Item Value Reference Range Interpretation [...] 0.3 % 0.0-0.4 STLMLXR CHEST AP/PA 1 [id number] 11:33:32 [facility])Name: LAUREN BETH : 1985 Sex: FProcedure: XR CHEST AP/PA 1 VIEWOrder Date: 03/24/2021 10:57 AMOrdering Provider: REHAN Farrellinical Indication: [id number]: DyspneaComparison: September 30, 2018Findings:Cardiac size is normal.Pulmonary vasculature is normal.Mediastinal contour is normal.Aortic contour is normal.No acute infiltrates or effusions.There is no mass or pneumothorax.There is no evidence of active tuberculosis.There isno acute skeletal abnormality.Impression: Negative AP view of the chest.This final report was electronically signed by Dr Farzad Dewitt MD :28 AMDictated By: FARZAD DEWITTDate: :28STLMLCULTURE, [id number] 08:00:00Specimen: Urine SpecimensCollected: 03/10/2021 11:50 Status: Final [...] code = NEGATIVE NEGATIVE N UKET) Specific Drayden 1.015 1.005-1.030 A (test code = USPGR) Blood (test code = NEGATIVE NEGATIVE N UBLD) PH (test code = UPH) 7.0 4.5-8.0 A Protein (test code = NEGATIVE NEGATIVE N UPROT) Urobilinogen (test 0.2 See_Comment N [Automat ed message] code = U UROB) The system [facility] generated this result transmit michael [...] SEEN A Epithelial (test code = NSE) [facility] CBC WITH AUTO [id number] 12:10:00 Test Item Value Reference Range Interpretation [...] code = IG%) 0.8 % 0.0-0.4 H [facility] CHEM [id number] 12:08:00 Test Item Value Reference Range Interpretation [...] = CREA) 0.5 mg/dl 0.6-1.3 L STLMLCULTURE, [id number] 08:26:00Specimen: Urine SpecimensCollected: 02/23/2021 08:35 Status: Final Last Updated: 02/24/2021 08:26 CULTURE (Final) (Final) Many Mixed Body Gabriela Isolated No Pathogens IsolatedSTLMLCT ABDOMEN/PELVIS W/[id number] 11:40:43 [facility] ([facility]Name: LAUREN BETH : 1985 Sex: FProcedure: CT ABDOMEN/PELVIS W/CONTRASTOrder date: 02/23/2021 10:08 AMOrdering Provider: REHAN Farrellinical Indication: [id number]: Right lower quadrant painComparison: November 14, 2020Technique: [...] MD 111:35 AMDictated By: WILEY VELÁZQUEZDate: 02/23/2021 11:[id number] 10:44:00 Test Item Value Reference Range Interpretation Comments Lipase (test code = LIPA) 86 U/L 73-393 STLMLURINALYSIS WITH [id number] 08:58:00 Test Item Value Reference Range Interpretation Comments Color (test code = Light-Yellow UCOLR) Clarity (test code = Clear UCLAR) Glucose (test code = NEGATIVE NEGATIVE N UGLUC) Bilirubin (test code NEGATIVE NEGATIVE N = UBILI) Ketones (test code = NEGATIVE NEGATIVE N UKET) Specific Drayden 1.020 1.005-1.030 A (test code = USPGR) Blood (test code = NEGATIVE NEGATIVE N UBLD) PH (test code = UPH) 6.0 4.5-8.0 A Protein (test code = NEGATIVE NEGATIVE N UPROT) Urobilinogen (test 0.2 See_Comment N [Automat ed message] code = U UROB) The system [facility] generated this result transmit michael [...] = SQEP) STLMLSTAT LAB CBC WITH AUTO [id number] 08:52:00 Test Item Value Reference Range Interpretation [...] (test code = IG%) 0.3 % 0.0-0.4 [facility] CHEM [id number] 08:52:00 Test Item Value Reference Range Interpretation [...] (test code = CREA) 0.6 mg/dl 0.6-1.3 [facility] CBC WITH AUTO [id number] 02:37:00 Test Item Value Reference Range Interpretation [...] A value of 55 was entered by [id number] on 01/10/2021 02:3 7 Lymphocytes (test 43 % 13-42 H No previou s value code = LYMPH) was reported. A value of 43 was entered by [id number] on 01/10/2021 02:3 7 Monocytes (test 1 % 4-14 L No previous value code = MONOS) was reported. A value of 1 was entered by [id number] on 01/10/2021 02:3 7 Basophils (test 1 % 0-1 No previous value code = BASO) was reported. A value of 1 was entered by [id number] on 01/10/2021 02:3 7 Normal Morphology Normal WBC RBC Normal RBC \\T\\ N No pre vious value (test code = NRCM) and Platelet WBC was repor michael. A Morphology Morphology,Normal value of N ormal WBC RBC and WBC RBC and Platelet Platelet Morphology Morphology was entered by [id number] on 01/10/2021 02:3 7 STLMLAMYLASE, [id number] 02:14:00 Test Item Value Reference Range Interpretation Comments Amylase (test code = AMYL) 46 U/L 25-115 [id number] 02:14:00 Test Item Value Reference Range Interpretation Comments Lipase (test code = LIPA) 115 U/L 73-393 STLMLURINALYSIS WITH [id number] 02:07:00 Test Item Value Reference Range Interpretation Comments Color (test code = Light-Yellow UCOLR) Clarity (test code = Cloudy UCLAR) Glucose (test code = NEGATIVE NEGATIVE N UGLUC) Bilirubin (test code NEGATIVE NEGATIVE N = UBILI) Ketones (test code = NEGATIVE NEGATIVE N UKET) Specific Drayden 1.025 1.005-1.030 A (test code = USPGR) Blood (test code = NEGATIVE NEGATIVE N UBLD) PH (test code = UPH) 6.0 4.5-8.0 A Protein (test code = NEGATIVE NEGATIVE N UPROT) Urobilinogen (test 0.2 See_Comment N [Automat ed message] code = U UROB) The system 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 Acct: [id number] Dis Date: Status: REG ER PHONE #: [phone] Exam Date: 12/13/2020 0325 FAX #: [phone] Reason: DIFFUSE ABD PAIN WORSE RLQ, HX APPY, ROSE EXAMS: CPT CODE: [id number] CT ABD PELVIS W/CONT 20069 AFTER HOURS SERVICE ON: 12/13/2020 3:44 AM [...] 1 Signed Report (CONTINUED) FAX: Annemarie Tesfaye [phone] [place]: St: REG------ Name: LAUREN BETH [facility] : 1985 Age/S: 35/F [address] Unit: [id number] Loc: [place], [place] [address]Qkix: Annemarie Tesfaye [employer]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 Acct: [id number] Dis Date: Status: REG ER PHONE #: [phone] Exam Date: 12/13/20205 FAX #: [phone] Reason: DIFFUSE ABD PAIN WORSE RLQ, HX APPY, ROSE EXAMS: CPT CODE: [id number] CT ABD PELVIS W/CONT [id number] <Continued> CC: Annemarie Tesfaye 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 Technologist: PAMELA KRISHNAMURTHY; Jessi Guillory; JAIRO SANCHEZ JR Trnscrd Dt/Tm: 12/13/2020 (0346) [email or web address] Orig Print D/T: S: 12/13/2020 (0059 PAGE 2 Signed ReportCOMPREHENSIVE METABOLIC PANEL 2020-12-13 [...] U/L 38-126 N (test code = ALKP) [id number] 03:32:00 Test Item Value Reference Range Interpretation Comments LIPASE (test code = LIP) 82 U/L 23-300 N BEDSIDE [id number] 03:24:00 Test Item Value Reference Range Interpretation Comments BEDSIDE CREATININE (test code = 0.60 mg/dL 0.51-1.19 N CREATBED) CBC W/AUTO [id number] 03:14:00 Test Item Value Reference Range Interpretation [...] 0.0-0.1 N UA RFLX MICR CULT IF [id number] 02:59:00 Test Item Value Reference Range Interpretation [...] OF URINE: [facility] LAB CBC WITH AUTO [id number] 15:12:00 Test Item Value Reference Range Interpretation [...] by [id number] 82 on 12/12/2020 15:[address] [facility] LAB [id number] [id number] 14:08:00 Test Item Value Reference Range Interpretation [...] 0.6-1.3 [address] [facility] LAB URINALYSIS WITHOUT [id number] 12:08:00 Test Item Value Reference Range Interpretation Comments Color (test code = Light-Yellow UCOLR) Clarity (test code = Cloudy UCLAR) Glucose (test code = NEGATIVE NEGATIVE N UGLUC) Bilirubin (test code NEGATIVE NEGATIVE N = UBILI) Ketones (test code = NEGATIVE NEGATIVE N UKET) Specific Drayden 1.015 1.005-1.030 A (test code = USPGR) Blood (test code = NEGATIVE NEGATIVE N UBLD) PH (test code = UPH) 7.0 4.5-8.0 A Protein (test code = NEGATIVE NEGATIVE N UPROT) Urobilinogen (test 0.2 See_Comment N [Automat ed message] code = U UROB) The system [facility] generated this result transmit michael reference range : 0.2. The refere nce range was not u sed to interpret th is result as normal/abnormal . Nitrite (test code = NEGATIVE NEGATIVE N UNITR) Leukocyte Esterase NEGATIVE NEGATIVE N (test code = ULEUK) [facility] ClaireHEPAT[facility] FUNCTION PANEL (LIVER)2020-11-21 08:43:00 Test Item Value [...] (test code = 0.4 mg/dl 0.0-1.1 IBIL) [facility] WITH [id number] 08:31:00 Test Item Value Reference Range Interpretation Comments Color (test code = Light-Yellow UCOLR) Clarity (test code = Clear UCLAR) Glucose (test code = NEGATIVE NEGATIVE N UGLUC) Bilirubin (test code NEGATIVE NEGATIVE N = UBILI) Ketones (test code = NEGATIVE NEGATIVE N UKET) Specific Drayden 1.020 1.005-1.030 A (test code = USPGR) Blood (test code = NEGATIVE NEGATIVE N UBLD) PH (test code = UPH) 6.5 4.5-8.0 A Protein (test code = NEGATIVE NEGATIVE N UPROT) Urobilinogen (test 0.2 See_Comment N [Automat ed message] code = U UROB) The system [facility] generated this result transmit michael [...] 0-10 A (test code = SQEP) [facility] LAB CHEM [id number] 08:27:00 Test Item Value Reference Range Interpretation [...] 0.6-1.3 [address] [facility] LAB CBC WITH AUTO [id number] 08:26:00 Test Item Value Reference Range Interpretation [...] code = IG%) 0.4 % 0.0-0.4 [facility] ABD[facility] 2 VIEWS FLAT / [id number] 08:18:50[facility] ([facility]/)Name: LAUREN BETH : 1985 Sex: FProcedure: XR ABDOMEN 2 VIEWS FLAT / UPRIGHTOrder Date: 11/21/2020 7:43 AMOrdering Provider: REHAN Farrellinical Indication: [id number]: Abdominal painComparison: Nov 14 2020Findings:Bowel gas pattern is non-obstructive. No pneumoperitoneum.There is moderate volume stool burden.Surgical clips in the right upper quadrant of the abdomen.Impression:Nonobstructive bowel gas pattern.This final reportwas electronically signed by Dr Silver Benitez MD :13 AMDictated By: GLORY BENITEZKDate: 11/21/2020 08:13[facility]ILOCT ABDOMEN/PELVIS W/O CONTRAST 2020-11-14 14:11:31 [facility] ([facility] [place])Name: LAUREN BETH LORENA : 1985 Sex: FProcedure: CT ABDOMEN/PELVIS W/O CONTRASTOrder Date: 11/14/2020 1:22 PMOrdering Provider: BILLY ACOSTA .Clinical Indication: [id number]: Right flank painComparison: Renal ultrasound November 08, [...] MD :05 PMDictated By: FARZAD DEWITTDate: 11/14/2020 14:05[facility] LAB , [id number] 13:31:00 Test Item Value Reference Range Interpretation Comments (Urine) (test code = Negative PREGU) ONLY AVAILABLE 8A-12[facility] LAB CHEM [id number] 11:09:00 Test Item Value Reference Range Interpretation [...] 0.6-1.3 L [facility] LAB URINALYSIS WITHOUT [id number] 11:08:00 Test Item Value Reference Range Interpretation Comments Color (test code = Yellow Lt. Yellow A UCOLR) Clarity (test code = Clear UCLAR) Glucose (test code = Negative Negative N UGLUC) Bilirubin (test code Negative Negative N = UBILI) Ketones (test code = Negative Negative N UKET) Specific Drayden 1.025 1.005-1.030 A (test code = USPGR) Blood (test code = Trace-intact Negative A UBLD) PH (test code = UPH) 6.0 4.5-8.0 A Protein (test code = Negative Negative N UPROT) Urobilinogen (test 0.2 See_Comment N [Automat ed message] code = U UROB) The system [facility] generated this result transmit michael reference range : 0.2. The refere nce range was not u sed to interpret th is result as normal/abnormal . Nitrite (test code = Negative Negative N UNITR) Leukocyte Esterase Negative Negative N (test code = ULEUK) [facility] LAB CBC WITH AUTO [id number] 11:05:00 Test Item Value Reference Range Interpretation [...] % 0.0-0.4 [facility] ClaireCULTURE, [id number] 08:43:00Specimen: Urine SpecimensCollected: 11/08/2020 09:59 Status: Final Last Updated: 11/09/2020 08:43 CULTURE (Final) (Final) Few Mixed Body Gabriela Isolated No Pathogens [facility]olatedMem[facility]-LufkinUS RENAL & BLADDER (KIDNEYS)2020-11-08 12:00:28[facility] ([facility] [place])Name: LAUREN BETH : 1985 Sex: FProcedure: US [...] AMDictated By: GLORY BENITEZKDate: 11/08/2020 11:54[facility] PAAUILOURINALYSIS WITH MICROSCOPIC 2020-11-08 10:58:00 Test Item Value Reference Range Interpretation Comments Color (test code = Yellow UCOLR) Clarity (test code = Clear UCLAR) Glucose (test code = NEGATIVE NEGATIVE N UGLUC) Bilirubin (test code = NEGATIVE NEGATIVE N UBILI) Ketones (test code = NEGATIVE NEGATIVE N UKET) Specific Drayden (test 1.030 1.005-1.030 A code = USPGR) Blood (test code = NEGATIVE NEGATIVE N UBLD) PH (test code = UPH) 6.0 4.5-8.0 A Protein (test code = NEGATIVE NEGATIVE N UPROT) Urobilinogen (test code 0.2 See_Comment N [Au tomated message] = U UROB) The system [employer] generated this result transmitted ref erence range: [...] 51-74 0-10 A (test code = SQEP) [facility] beds at the [facility], [id number] 08:13:00ER 17Specimen: Urine SpecimensCollected: 11/01/2020 01:10 Status: Final Last Updated: 11/02/2020 08:13 (1) ER 17 CULTURE (Final) (Final) Few Mixed Body Gabriela Isolated No Pathogens IsolatedAsp[facility]-LukinXR ABD SERIES W/PA CXR 2020-11-01 03:48:37 [facility] ([facility])Name: LAUREN BETH : 1985 Sex: FPROCEDURE [...] CDT.Dictated By: FILIPPO RAMOSDate: 11/01/2020 03:48[facility] OF PAAUILOHEPATIC FUNCTION PANEL (LIVER)2020-11-01 02:14:00 Test Item Value [...] (test code = 0.1 mg/dl 0.0-1.1 IBIL) [address] LAB CHEM [id number] 01:57:00 Test Item Value Reference Range Interpretation [...] = CREA) 0.5 mg/dl 0.6-1.3 L ER [address] [place] [address]-LufkinURINALYSIS WITH [id number] 01:56:00 Test Item Value Reference Range Interpretation Comments Color (test code = Light-Yellow UCOLR) Clarity (test code = Clear UCLAR) Glucose (test code = 50 NEGATIVE A UGLUC) Bilirubin (test code NEGATIVE NEGATIVE N = UBILI) Ketones (test code = NEGATIVE NEGATIVE N UKET) Specific Drayden 1.025 1.005-1.030 A (test code = USPGR) Blood (test code = NEGATIVE NEGATIVE N UBLD) PH (test code = UPH) 6.0 4.5-8.0 A Protein (test code = TRACE NEGATIVE A UPROT) Urobilinogen (test 0.2 See_Comment N [Automat ed message] code = U UROB) The system [email or web address] generated this result transmit michael reference range [...] 0-10 A (test code = SQEP) ER [address] [place] [address]-LufkinSTAT LAB CBC WITH AUTO [id number] 01:55:00 Test Item Value Reference Range Interpretation [...] code = IG%) 0.4 % 0.0-0.4 [address]AT[address] FUNCTION PANEL (LIVER)2020-10-05 01:26:00 Test Item [...] code = 0.1 mg/dl 0.0-1.1 IBIL) er [address] [place], [place] [address]kinLIPASE2021-04-07 01:26:00 Test Item Value Reference Range Interpretation Comments Lipase (test code = LIPA) 154 U/L 73-[address] [place] [address] LAB CHEM [id number] 01:15:00 Test Item Value Reference Range Interpretation [...] = CREA) 0.6 mg/dl 0.6-1.[address] [place] [address] LAB , [id number] 01:14:00 Test Item Value Reference Range Interpretation Comments (Urine) (test code = Negative PREGU) er [address] [place] [address] LAB CBC WITH AUTO [id number] 01:13:00 Test Item Value Reference Range Interpretation [...] IG%) 0.9 % 0.0-0.[address] [place], [place] [address]Cpwczz-[id number] 04:21:00 Test Item Value Reference Range Interpretation Comments Lipase (test code = LIPA) 146 U/L 73-393 [facility] Claire[facility]AT[facility] FUNCTION PANEL (LIVER)2020-09-18 04:21:00 Test Item Value [...] 0.0-1.1 IBIL) [facility] ClaireAMYLASE, [id number] 04:21:00 Test Item Value Reference Range Interpretation Comments Amylase (test code = AMYL) 47 U/L 25-115 [facility] ClaireURINALYSIS WITH [id number] 03:06:00 Test Item Value Reference Range Interpretation Comments Color (test code = Light-Yellow UCOLR) Clarity (test code = Clear UCLAR) Glucose (test code = NEGATIVE NEGATIVE N UGLUC) Bilirubin (test code NEGATIVE NEGATIVE N = UBILI) Ketones (test code = TRACE NEGATIVE A UKET) Specific Drayden 1.025 1.005-1.030 A (test code = USPGR) Blood (test code = NEGATIVE NEGATIVE N UBLD) PH (test code = UPH) 5.5 4.5-8.0 A Protein (test code = NEGATIVE NEGATIVE N UPROT) Urobilinogen (test 0.2 See_Comment N [Automat ed message] code = U UROB) The system [facility] generated this result transmit michael [...] A Epithelial (test code = NSE) [facility] LAB CHEM [id number] 02:51:00 Test Item Value Reference Range Interpretation [...] code = CREA) 0.6 mg/dl 0.6-1.[address] [facility] LAB CBC WITH AUTO [id number] 02:50:00 Test Item Value Reference Range Interpretation [...] = IG%) 0.5 % 0.0-0.4 H [facility] ABDOMEN 1 VIEW (KUB)2020-09-12 01:51:21 [facility] ([facility] [place]/[place])Name: LAUREN BETH [...] CDT.Dictated By: CELESTINO ALLENDate: 09/12/2020 01:50[facility] STAT LAB CBC WITH AUTO [id number] 01:29:00 Test Item Value Reference Range Interpretation [...] 0.0-0.[address] [facility] LAB CHEM [id number] 01:28:00 Test Item Value Reference Range Interpretation [...] code = CREA) 0.6 mg/dl 0.6-1.3 [facility]UR[facility] WITH [id number] 03:04:00 Test Item Value Reference Range Interpretation Comments Color (test code = Yellow UCOLR) Clarity (test code = Clear UCLAR) Glucose (test code = 100 NEGATIVE A UGLUC) Bilirubin (test code = NEGATIVE NEGATIVE N UBILI) Ketones (test code = TRACE NEGATIVE A UKET) Specific Drayden (test >=1.030 1.005-1.030 A code = USPGR) Blood (test code = NEGATIVE NEGATIVE N UBLD) PH (test code = UPH) 5.5 4.5-8.0 A Protein (test code = NEGATIVE NEGATIVE N UPROT) Urobilinogen (test code 0.2 See_Comment N [Au tomated message] = U UROB) The system [employer] generated this result transmitted ref erence range: [...] code = 3+ None Seen,Trace A UBACT) [facility]-[id number] 03:01:00 Test Item Value Reference Range Interpretation [...] ( 4 - SerumAlbumin)] EGFR if >60 Maltese (test code mL/min/1.73m\\ = EGFRAA) S\\2 EGFR if Non- >60 Estimate d Glomerular Maltese (test code mL/min/1.73m\\ Filtrat ion Rate (eGFR) [...] of c hronic kidney failure. [facility] HospitalDtklfh-[id number] 03:01:00 Test Item Value Reference Range Interpretation Comments Lipase (test code = LIPA) 145 U/L 73-[address] [facility] LAB TEST, Serum Qualitative 2020-08-22 02:48:00 Test Item Value Reference Range Interpretation Comments (Serum) (test code = Negative PREGS) [facility] LAB CBC WITH AUTO [id number] 02:28:00 Test Item Value Reference Range Interpretation [...] 0.0-0.4 H [facility] ClaireHEPATIC FUNCTION PANEL (LIVER)2020-08-06 02:59:00 Test Item Value [...] code = 0.1 mg/dl 0.0-1.1 IBIL) ER [address] [place], [place] [address]Gwarcj-[id number] 02:59:00 Test Item Value Reference Range Interpretation Comments Lipase (test code = LIPA) 167 U/L 73-[address] [place] [address]-LufkinURINALYSIS WITH [id number] 02:48:00 Test Item Value Reference Range Interpretation Comments Color (test code = UCOLR) Yellow Clarity (test code = UCLAR) Clear Glucose (test code = UGLUC) NEGATIVE NEGATIVE N Bilirubin (test code = UBILI) NEGATIVE NEGATIVE N Ketones (test code = UKET) NEGATIVE NEGATIVE N Specific Drayden (test code = >=1.030 1.005-1.030 A USPGR) [...] = UBACT) 4+ None Seen,Trace A ER [address] [place] [address]-[place]CT ABDOMEN/PELVIS W/O [id number] 02:34:52ER 16 R/O KIDNEY STONE [facility] ([facility] [place]/[place])Name: LAUREN BETH : [id number] Sex: FPROCEDURE INFORMATION:Exam: CT Abdomen And Pelvis [...] CDT.Dictated By: HOLLIS FERRERADate: 08/06/2020 02:34[facility] CHEM 8 2020-08-06 02:29:00 Test Item [...] code = CREA) 0.4 mg/dl 0.6-1.[address] LAB CBC WITH AUTO [id number] 02:29:00 Test Item Value Reference Range Interpretation [...] = IG%) 0.7 % 0.0-0.4 H ER [address] [place], [place] [address]Kmymvx-[id number] 09:31:00 Test Item Value Reference Range Interpretation Comments Lipase (test code = LIPA) 117 U/L 73-393 [facility] ClaireHEPATIC FUNCTION PANEL (LIVER)2020-07-19 09:31:00 Test Item Value [...] (test code = 0.3 mg/dl 0.0-1.1 IBIL) [facility] ABDOMEN 2 VIEWS FLAT / [id number] 09:22:50[facility] ([facility] [place])Name: LAUREN BETH : [id number] Sex: FProcedure: XR ABDOMEN 2 VIEWS FLAT / UPRIGHTOrder Date: 07/19/2020 8:40 AMOrdering Provider: REHAN COTTON .Clinical Indication: [id number]: Abdominal painComparison: July 05, 2020Findings:Postoperative change consisting [...] AMDictated By: FARZAD DEWITT.Date: 07/19/2020 09:17[facility] LAB CHEM [id number] 09:10:00 Test Item Value Reference Range Interpretation [...] 0.6-1.3 [address] [facility] LAB CBC WITH AUTO [id number] 09:09:00 Test Item Value Reference Range Interpretation [...] = IG%) 0.7 % 0.0-0.[address] [facility] LAB URINALYSIS WITHOUT [id number] 09:08:00 Test Item Value Reference Range Interpretation Comments Color (test code = UCOLR) Yellow Lt. Yellow A Clarity (test code = UCLAR) Clear Glucose (test code = UGLUC) Negative Negative N Bilirubin (test code = UBILI) Negative Negative N Ketones (test code = UKET) Negative Negative N Specific Drayden (test code = USPGR) >=1.030 1.005-1.030 A Blood (test code = UBLD) Negative Negative N PH (test code = UPH) 6.0 4.5-8.0 A Protein (test code = UPROT) Negative Negative N Urobilinogen (test code = U UROB) 0.2 >0.2 N Nitrite (test code = UNITR) Negative Negative N Leukocyte Esterase (test code = Negative Negative N ULEUK) [facility]-fkinCULTURE, [id number] 08:00:00Specimen: Urine SpecimensCollected: 07/05/2020 03:00 Status: Final Last Updated: 07/07/2020 08:00 CULTURE (Final) (Final) No Growth After 48 HoursAsp[facility] CenterkinXR ABDOMEN 1 VIEW (KUB)2020-07-05 04:07:04 [facility] ([facility] [place]/)Name: LAUREN BETH : [id number] Sex: FPROCEDURE INFORMATION:Exam: XR Abdomen, 1 ViewExam [...] 4:06 AM CDT.Dictated By: OSKAR CRANEte: 07/05/2020 04:06[facility] LAB , [id number] 03:54:00 Test Item Value Reference Range Interpretation Comments (Urine) (test code = Negative PREGU) [facility] LAB CHEM [id number] 03:53:00 Test Item Value Reference Range Interpretation [...] 0.6-1.3 L [facility] LAB CBC WITH AUTO [id number] 03:51:00 Test Item Value Reference Range Interpretation [...] code = IG%) 0.4 % 0.0-0.4 [facility]inURINALYSIS WITH [id number] 03:33:00 Test Item Value Reference Range Interpretation Comments Color (test code = UCOLR) Yellow Clarity (test code = UCLAR) Clear Glucose (test code = UGLUC) NEGATIVE NEGATIVE N Bilirubin (test code = UBILI) Small NEGATIVE A Ketones (test code = UKET) TRACE NEGATIVE A Specific Drayden (test code = USPGR) 1.020 1.005-1.030 A [...] = UBACT) Trace None Seen,Trace N [facility]CT ABDOMEN/PELVIS W/[id number] 16:44:35 [facility] ([facility] [place]/[place])Name: LAUREN BETH : [id number] Sex: FProcedure: CT ABDOMEN/PELVIS W/CONTRASTOrder date: 06/07/2020 3:47 PMOrdering Provider: REHAN Farrellinical Indication: [id number]: Left flank painComparison: 06/07/20Technique: Multiple axial helical [...] PMDictated By: WILEY VELÁZQUEZDate: 06/07/2020 16:38[facility] OF PAAUILOURINALYSIS WITH [id number] 15:22:00 Test Item Value Reference Range Interpretation Comments Color (test code = UCOLR) Yellow Clarity (test code = UCLAR) Clear Glucose (test code = UGLUC) NEGATIVE NEGATIVE N Bilirubin (test code = UBILI) NEGATIVE NEGATIVE N Ketones (test code = UKET) NEGATIVE NEGATIVE N Specific Drayden (test code = USPGR) 1.020 1.005-1.030 A [...] = UBACT) Trace None Seen,Trace N [facility] LAB CHEM [id number] 15:10:00 Test Item Value Reference Range Interpretation [...] = CREA) 0.4 mg/dl 0.6-1.3 [address] [facility] LAB CBC WITH AUTO [id number] 15:08:00 Test Item Value Reference Range Interpretation [...] = IG%) 0.5 % 0.0-0.4 H [facility] ABD/ PELVIS W/O CON (RENAL STONE)2020-06-07 14:56:05[facility])Name: LAUREN BETH : [id number] Sex: FProcedure: CT ABD/ PELVIS W/O CON (RENAL STONE)Order date: 06/07/2020 2:18 PMOrdering Provider: REHAN Farrellinical Indication: [id number]: Left flank painComparison: 05/31/20TECHNIQUE: Using a helical [...] By: WILEY VELÁZQUEZDate: 06/07/2020 14:49[facility] [place] [facility] W/O [id number] 12:27:07NPO 4 hours. Do not withhold meds hyst [facility] ([facility])Name: LAUREN BETH : [id number] Sex: FProcedure: CT ABDOMEN/PELVIS W/O CONTRASTOrder Date: 05/31/2020 10:25 AMOrdering Provider: ME ANN MARIE MCBRIDEClinical Indication: [id number]: Pain radiating to right flankComparison: March 20, [...] MD 05/31/202012:20 PMDictated By: FARZAD DEWITT.Date: 05/31/2020 12:20MMST. [facility] [id number] 11:48:00 Test Item Value Reference Range Interpretation Comments Lipase (test code = LIPA) 116 U/L 73-[address] [facility] LAB URINALYSIS WITHOUT [id number] 10:59:00 Test Item Value Reference Range Interpretation Comments Color (test code = UCOLR) Light yellow Lt. Yellow A Clarity (test code = UCLAR) Clear Glucose (test code = UGLUC) Negative Negative N Bilirubin (test code = UBILI) Negative Negative N Ketones (test code = UKET) Negative Negative N Specific Drayden (test code = 1.025 1.005-1.030 A USPGR) Blood (test code = UBLD) Negative Negative N PH (test code = UPH) 6.0 4.5-8.0 A Protein (test code = UPROT) Negative Negative N Urobilinogen (test code = U 0.2 >0.2 N UROB) Nitrite (test code = UNITR) Negative Negative N Leukocyte Esterase (test code = Negative Negative N ULEUK) [facility] LAB CBC WITH AUTO [id number] 10:58:00 Test Item Value Reference Range Interpretation [...] = IG%) 0.5 % 0.0-0.[address] [facility] LAB CHEM [id number] 10:53:00 Test Item Value Reference Range Interpretation [...] = CREA) 0.5 mg/dl 0.6-1.3 L [facility] ABDOMEN 1 VIEW (KUB)2020-04-25 21:02:16 [facility] ([facility] [place])Name: LAUREN BETH : [id number] Sex: FPROCEDURE INFORMATION:Exam: XR Abdomen, 1 ViewExam [...] PM CDT. Dictated By: TEJAS RODRIGUEZDate: 04/25/2020 21:02[facility] OF PAAUILOURINALYSIS WITH [id number] 18:57:00 Test Item Value Reference Range Interpretation Comments Color (test code = UCOLR) Yellow Lt. Yellow A Clarity (test code = UCLAR) Clear Glucose (test code = UGLUC) Negative Negative N Bilirubin (test code = UBILI) Negative Negative N Ketones (test code = UKET) Negative Negative N Specific Drayden (test code = 1.020 1.005-1.030 A USPGR) [...] = UBACT) 4+ None Seen,Trace A [facility] LAB CBC WITH AUTO [id number] 18:55:00 Test Item Value Reference Range Interpretation [...] of Platel et clumping was entered by [id number] on 04/25/2020 18:5 [address] [facility] LAB CHEM [id number] 18:17:00 Test Item Value Reference Range Interpretation [...] = CREA) 0.4 mg/dl 0.6-1.3 L [facility] ParkCUCL[facility] [id number] 15:20:00FIRST DRAW = 1 aerobic and 1 anerobic CultureSpecimen: BloodCollected: 03/20/2020 18:30 Status: Final Last Updated: 03/26/2020 15:19 (1) FIRST DRAW = 1 aerobic and 1 anerobic Culture CULTURE (Final) (Final) No [facility] [id number] 15:20:00FIRST DRAW = 1 aerobic and 1 anerobic CultureSpecimen: BloodCollected: 03/20/2020 18:30 Status: Final Last Updated: 03/26/2020 15:19 (1) FIRST DRAW = 1 aerobic and 1 anerobic Culture CULTURE (Final) (Final) No Growth After 5 DaysAsp[facility]-LufkinCT ABDOMEN/PELVIS W/[id number] 21:46:442 weeks s/p adhesolysis. Vomiting/pain/fever. Please do CT with PO and IV contrastProcedures: CT ABDOMEN/PELVIS W/CONTRASTExam Date: 03/20/2020 6:04 PMOrdering Physician: REHAN Farrellinical Indication: [id number]: Abdominal painComparison: CT abdomen/pelvis, 02/25/20TECHNIQUE: Spiral multislice [...] PMDictated By: ELMER PHAMDate: 03/20/2020 21:40[facility] OF PAAUILOHEPATIC FUNCTION PANEL (LIVER)2020-03-20 19:24:00 Test Item Value [...] 0.0-1.1 IBIL) [facility] ClaireLIPASE2020-09-20 19:24:00 Test Item Value Reference Range Interpretation Comments Lipase (test code = LIPA) 69 U/L 73-393 L [facility] ClaireMAGNESIUM2020-09-20 19:24:00 Test Item Value Reference Range Interpretation Comments Magnesium (test code = MG) 2.0 mg/dl 1.6-2.[address] [facility] LAB CHEM [id number] 18:43:00 Test Item Value Reference Range Interpretation [...] 0.6-1.3 [address] [facility] LAB LACTIC [id number] 18:42:00 Test Item Value Reference Range Interpretation Comments LACTATE (test code = 2.50 mmol/l 0.90-1.70 R&RB sy rene hassan rn LAC) @[address] [facility] LAB CBC WITH AUTO [id number] 18:41:00 Test Item Value Reference Range Interpretation [...] code = IG%) 0.4 % 0.0-0.4 [facility]-LufkinSP PERC PLMNT MIDLINE NO PORT > [...] secured to the skin in the usual fashion.Corporate Librarian images were recorded and stored in the [facility] fordocumentation. The patient tolerated the procedure well and there were noimmediate complications.Impression:1. Successful upper extremity vascular access.This final report was electronically signed by Dr Farzad Dewitt MD :14 PMDictated By: FARZAD DEWITTDate: 03/15/2020 13:14[facility] OF PAAUILOCORONAVIRUS 2019 (IN HOUSE)2020-03-13 21:03:00 Test Item Value Reference Range Interpretation Comments FT (test code Negative Negative N The BioGX SARS -CoV-2 = COVID) (qualifier value) Reagents f or BD MAX System, the Bio Fire Covid-19, and t he Cepheid Covid-1 9 is for in vitro us e under FDA Emergency U se Authorization o nly. Indeterminate r esults recommend recol lection of specimen. [facility]/PA [id number] 17:33:07 Procedure: XR ABD SERIES W/PA CXROrder [...] PMDictated By: GLORY BENITEZKDate: 03/13/2020 17:26[facility] OF PAAUILOSTAT LAB CBC WITH AUTO [id number] 17:23:00 Test Item Value Reference Range Interpretation [...] on 03/13/2020 17:23 [facility] ClaireLIPASE2020-09-13 17:23:00 Test Item Value Reference Range Interpretation Comments Lipase (test code = LIPA) 61 U/L 73-393 L [facility] ClaireHEPATIC FUNCTION PANEL (LIVER)2020-03-13 17:23:00 Test Item Value [...] mg/dl 0.0-1.1 IBIL) [facility] WITH [id number] 16:54:00 Test Item Value Reference Range Interpretation Comments Color (test code = UCOLR) Yellow Lt. Yellow A Clarity (test code = UCLAR) Clear Glucose (test code = UGLUC) Negative Negative N Bilirubin (test code = UBILI) Negative Negative N Ketones (test code = UKET) Negative Negative N Specific Drayden (test code = >=1.030 1.005-1.030 A USPGR) [...] code = UBACT) 4+ None Seen,Trace A [facility] ClairefM [facility]TA [facility] CHEM [id number] 16:37:00 Test Item Value Reference Range Interpretation [...] = CREA) 0.4 mg/dl 0.6-1.3 L [facility] PERC PLMNT MIDLINE NO PORT > [...] MD 03/02/202012:17 PMDictated By: GLORY BENITEZKDate: 03/02/2020 12:17[facility] ([facility]SE)2020-03-01 18:48:00 Test Item Value Reference Range Interpretation Comments FT (test code Negative Negative N The BioGX SARS -CoV-2 = COVID) (qualifier value) Reagents f or BD MAX System, the Bio Fire Covid-19, and t he Cepheid Covid-1 9 is for in vitro us e under FDA Emergency U se Authorization o nly. Indeterminate r esults recommend recol lection of specimen. [facility]-LufkinPT AND [id number] 11:51:00 Test Item Value Reference Range Interpretation Comments Protime (test code 9.8 seconds 9.5-12.1 = PT) INR (test code = 0.9 0.9-1.1 INR results are intended INR) ONLY to monitor Oral Anticoagulant t herapy in stablized patie nts. The INR Therapeutic Range is 2.0 - 3.0 Patie nts with a mechanical he art, the INR Range is 2. 5 - 3.5 [facility]-[id number] 11:51:00 Test Item Value Reference Range Interpretation Comments aPTT (test code = PTT) 27.4 seconds 23.9-30.7 [facility]-[place] ParkCBC (HEMOGRAM ONLY)2020-03-01 11:44:00 Test Item Value Reference [...] BE NOTED ON THE RE PORT. [facility] MilwaukeestefanieCULTURE, [id number] 08:08:00Specimen: Urine RandomCollected: 02/25/2020 11:27 Status: Final Last Updated: 02/27/2020 08:08 CULTURE (Final) (Final) No Growth After 48 HoursAurora [facility] Milwaukeekin [id number] 05:38:00 Test Item Value Reference Range Interpretation [...] 0.5-1.3 code = CREA) EGFR if >60 Maltese (test code mL/min/1.73m\\ = EGFRAA) S\\2 EGFR if Non- >60 Estimate d Glomerular Maltese (test code mL/min/1.73m\\ Filtrat ion Rate (eGFR) [...] and management of c hronic kidney failure. [facility] (Ultra Sensitive)2020-02-26 05:38:00 Test Item Value Reference Range Interpretation Comments TSH (test code = TSH) 0.04 mIU/L 0.35-3.74 L [facility] WITH AUTO [id number] 05:18:00 Test Item Value Reference Range Interpretation [...] 0.5 % 0.0-0.4 H IG%) CBC AUTO diffAsp[facility] CenterkinCORONAVIRUS 2019 (IN HOUSE)2020-02-25 14:06:00 Test Item Value Reference Range Interpretation Comments FT (test code Negative Negative N The BioGX SARS -CoV-2 = COVID) (qualifier value) Reagents f or BD MAX System, the Bio Fire Covid-19, and t he Cepheid Covid-1 9 is for in vitro us e under FDA Emergency U se Authorization o nly. Indeterminate r esults recommend recol lection of specimen. [facility]kinURINALYSIS WITH [id number] 12:56:00 Test Item Value Reference Range Interpretation Comments Color (test code = UCOLR) Yellow Lt. Yellow A Clarity (test code = UCLAR) Slightly Cloudy Glucose (test code = UGLUC) Negative Negative N Bilirubin (test code = UBILI) Negative Negative N Ketones (test code = UKET) Negative Negative N Specific Drayden (test code = >=1.030 1.005-1.030 A USPGR) [...] Seen,Trace N [facility] ClaireLIPASE2020-08-27 12:52:00 Test Item Value Reference Range Interpretation Comments Lipase (test code = LIPA) 90 U/L 73-393 [facility] ClaireHEPATIC FUNCTION PANEL (LIVER)2020-02-25 12:52:00 Test Item Value [...] 0.0-1.1 IBIL) [facility] ClaireCT ABDOMEN/PELVIS W/[id number] 12:42:41NPO 4 hours. Do not withhold medsProcedure: [...] MD 02/25/202012:36 PMDictated By: WILEY VELÁZQUEZDate: 02/25/2020 12:36[facility] LAB CHEM 8 2020-02-25 [...] 0.6-1.3 L [facility] LAB CBC WITH AUTO [id number] 12:05:00 Test Item Value Reference Range Interpretation [...] code = IG%) 0.3 % 0.0-0.[address] [facility] LAB CBC WITH AUTO [id number] 03:15:00 Test Item Value Reference Range Interpretation [...] H [facility] LAB CHEM [id number] 02:55:00 Test Item Value Reference Range Interpretation [...] code = CREA) 0.5 mg/dl 0.6-1.3 L [facility] ParkXR ABDOMEN 1 VIEW (KUB)2020-02-25 02:45:30 PROCEDURE INFORMATION:Exam: [...] [facility] , URINE 2020-02-25 01:12:00 Test Item Value Reference Range Interpretation Comments (Urine) (test code = Negative PREGU) [facility] LAB URINALYSIS WITHOUT [id number] 01:11:00 Test Item Value Reference Range Interpretation Comments Color (test code = UCOLR) Yellow Lt. Yellow A Clarity (test code = UCLAR) Clear Glucose (test code = UGLUC) Negative Negative N Bilirubin (test code = UBILI) Negative Negative N Ketones (test code = UKET) Negative Negative N Specific Drayden (test code = USPGR) >=1.030 1.005-1.030 A Blood (test code = UBLD) Negative Negative N PH (test code = UPH) 5.5 4.5-8.0 A Protein (test code = UPROT) Negative Negative N Urobilinogen (test code = U UROB) 0.2 >0.2 N Nitrite (test code = UNITR) Negative Negative N Leukocyte Esterase (test code = Negative Negative N ULEUK) [facility] ABDOMEN 1 VIEW (KUB)2020-02-10 06:46:05 Procedure: XR ABDOMEN 1 VIEW (KUB)Order date: 02/10/2020 4:01 AMOrdering Provider: JUAN Galiciainical Indication: Abdominal painComparison: NoneFindings:There is no small or large bowel distention.There is no pneumoperitoneum.There are no suspicious calcifications.There is no skeletal abnormality.Impression:1. Negative single view abdomen.This final report was electronically signed by Dr Wiley Velázquez MD 02/10/20206:39 AMDictated By: WILEY VELÁZQUEZDate: 02/10/2020 06:39[facility] RENAL & BLADDER (KIDNEYS)2020-02-10 05:31:33PROCEDURE INFORMATION:Exam: [...] AM CDT.Dictated By: JORGE LUIS WHITEDate: 02/10/2020 05:31MM OF PAAUILOURINALYSIS WITH [id number] 05:10:00 Test Item Value Reference Range Interpretation Comments Color (test code = UCOLR) Yellow Lt. Yellow A Clarity (test code = UCLAR) Clear Glucose (test code = UGLUC) >=1000 Negative A Bilirubin (test code = UBILI) Negative Negative N Ketones (test code = UKET) Negative Negative N Specific Drayden (test code = 1.015 1.005-1.030 A USPGR) [...] = UBACT) None Seen None Seen,Trace N [facility] HospitalQlrfjg-[id number] 04:42:00 Test Item Value Reference Range Interpretation Comments Lipase (test code = LIPA) 91 U/L 73-393 [facility] ClaireHEPATIC FUNCTION PANEL (LIVER)2020-02-10 04:42:00 Test Item Value [...] code = 0.2 mg/dl 0.0-1.1 IBIL) [facility] LAB CHEM [id number] 04:27:00 Test Item Value Reference Range Interpretation [...] code = CREA) 0.6 mg/dl 0.6-1.[address] [facility] LAB , [id number] 04:24:00 Test Item Value Reference Range Interpretation Comments (Urine) (test code = Negative PREGU) [facility] LAB CBC WITH AUTO [id number] 04:22:00 Test Item Value Reference Range Interpretation [...] = IG%) 0.5 % 0.0-0.4 H [facility]kinCT L SPINE W/O [id number] 12:46:24 Procedure: CT L SPINE W/O CONTRASTOrder date: 01/25/2020 11:46 AMOrdering Provider: DONALD Healyinical Indication: [id number]: Low back painComparison: NoneTechnique: Using a multislice [...] MD 01/25/202012:39 PMDictated By: WILEY VELÁZQUEZDate: 01/25/2020 12:39[facility] OF PAAUILOHEPATIC FUNCTION PANEL (LIVER)2019-12-09 05:49:00 Test Item Value [...] code = 0.3 mg/dl 0.0-1.1 IBIL) ER [address] [place], [place] [address]LIPASE2020-06-10 05:49:00 Test Item Value Reference Range Interpretation Comments Lipase (test code = LIPA) 105 U/L 73-[address] LAB CHEM [id number] 05:06:00 Test Item Value Reference Range Interpretation [...] code = CREA) 0.5 mg/dl 0.6-1.[address] LAB CBC WITH AUTO [id number] 05:04:00 Test Item Value Reference Range Interpretation [...] code = IG%) 0.4 % 0.0-0.[address]-[id number] 02:23:00 Test Item Value Reference Range Interpretation [...] ( 4 - SerumAlbumin)] EGFR if >60 Maltese (test code mL/min/1.73m\\ = EGFRAA) S\\2 EGFR if Non- >60 Estimate d Glomerular Maltese (test code mL/min/1.73m\\ Filtrat ion Rate (eGFR) [...] of c hronic kidney failure. [facility]-fkinURINALYSIS WITH [id number] 02:11:00 Test Item Value Reference Range Interpretation Comments Color (test code = UCOLR) Yellow Lt. Yellow A Clarity (test code = UCLAR) Clear Glucose (test code = UGLUC) Negative Negative N Bilirubin (test code = UBILI) Negative Negative N Ketones (test code = UKET) Trace Negative A Specific Drayden (test code = USPGR) >=1.030 1.005-1.030 A [...] = UBACT) 2+ None Seen,Trace A [facility] LAB CBC WITH AUTO [id number] 02:03:00 Test Item Value Reference Range Interpretation [...] code = IG%) 0.4 % 0.0-0.4 [facility] ABDOMEN/PELVIS W/[id number] 22:43:00NPO 4 hours. Do not withhold meds [...] 201910:42 PM CDT.Dictated By: JOSUÉ MCGHEEDate: 10/07/2019 22:42[facility] 2019-10-07 22:05:00 Test Item [...] 0.5-1.3 code = CREA) EGFR if >60 Maltese (test code mL/min/1.73m\\ = EGFRAA) S\\2 EGFR if Non- >60 Estimate d Glomerular Maltese (test code mL/min/1.73m\\ Filtrat ion Rate (eGFR) [...] of c hronic kidney failure. [facility]-LufkinAMYLASE, [id number] 22:05:00 Test Item Value Reference Range Interpretation Comments Amylase (test code = AMYL) 43 U/L 25-115 [facility] HospitalQaumva-[id number] 22:05:00 Test Item Value Reference Range Interpretation Comments Lipase (test code = LIPA) 95 U/L 73-393 [facility]kinURINALYSIS WITH [id number] 21:49:00 Test Item Value Reference Range Interpretation Comments Color (test code = UCOLR) Yellow Lt. Yellow A Clarity (test code = UCLAR) Clear Glucose (test code = UGLUC) Negative Negative N Bilirubin (test code = UBILI) Negative Negative N Ketones (test code = UKET) 15 Negative A Specific Drayden (test code = USPGR) >=1.030 1.005-1.030 A [...] code = UBACT) 3+ None Seen,Trace A [facility]-fkinSTAT LAB CBC WITH AUTO [id number] 21:45:00 Test Item Value Reference Range Interpretation [...] code = IG%) 0.4 % 0.0-0.4 [facility]aukeekinSSUM[facility] , [id number] 21:36:00 Test Item Value Reference Range Interpretation Comments (Urine) (test code = Negative PREGU) [facility]CT ABDOMEN/PELVIS W/O [id number] 03:56:36 PROCEDURE INFORMATION:Exam: CT Abdomen And Pelvis [...] AM CDT.Dictated By: AMY ORDOÑEZDate: 09/20/2019 03:56 [facility] [id number] 02:07:00 Test Item Value Reference Range Interpretation [...] ( 4 - SerumAlbumin)] EGFR if >60 Maltese (test code mL/min/1.73m\\ = EGFRAA) S\\2 EGFR if Non- >60 Estimate d Glomerular Maltese (test code mL/min/1.73m\\ Filtrat ion Rate (eGFR) [...] of c hronic kidney failure. [facility]XR ABDOMEN 2 VIEWS FLAT / [id number] 02:01:15PROCEDURE INFORMATION:Exam: XR Abdomen, 2 ViewsExam date [...] CDT.Dictated By: AMY ORDOÑEZDate: 09/20/2019 02:01[facility] OF PAAUILOURINALYSIS WITH MICROSCOPIC 2019-09-20 01:56:00 Test Item Value Reference Range Interpretation Comments Color (test code = UCOLR) Yellow Lt. Yellow A Clarity (test code = UCLAR) Clear Glucose (test code = UGLUC) >=1000 Negative A Bilirubin (test code = UBILI) Negative Negative N Ketones (test code = UKET) Trace Negative A Specific Drayden (test code = USPGR) >=1.030 1.005-1.030 A [...] = UBACT) 2+ None Seen,Trace A [facility] LAB CBC WITH AUTO [id number] 01:38:00 Test Item Value Reference Range Interpretation [...] = IG%) 0.5 % 0.0-0.4 H [facility] ABDOMEN/PELVIS W/[id number] 04:23:30 PROCEDURE INFORMATION:Exam: CT Abdomen And Pelvis [...] CDT.Dictated By: SETH MEDINADate: 08/17/2019 04:23[facility] OF [id number] 03:34:00 Test Item Value Reference Range Interpretation Comments Lipase (test code = LIPA) 67 U/L 73-393 L [facility]-[id number] 03:34:00 Test Item Value Reference Range Interpretation [...] ( 4 - SerumAlbumin)] EGFR if >60 Maltese (test code mL/min/1.73m\\ = EGFRAA) S\\2 EGFR if Non- >60 Estimate d Glomerular Maltese (test code mL/min/1.73m\\ Filtrat ion Rate (eGFR) [...] failure. [facility] LAB CBC WITH AUTO [id number] 03:19:00 Test Item Value Reference Range Interpretation [...] code = IG%) 0.7 % 0.0-0.4 H [facility]kinURINALYSIS WITH [id number] 03:10:00 Test Item Value Reference Range Interpretation Comments Color (test code = UCOLR) YELLOW Clarity (test code = UCLAR) CLEAR Glucose (test code = UGLUC) NEGATIVE NEGATIVE N Bilirubin (test code = UBILI) NEGATIVE NEGATIVE N Ketones (test code = UKET) NEGATIVE NEGATIVE N Specific Drayden (test code = 1.025 1.005-1.030 A USPGR) [...] code = UBACT) 1+ None Seen,Trace A [facility] LAB , [id number] 03:03:00 Test Item Value Reference Range Interpretation Comments (Urine) (test code = Negative PREGU) ONLY AVAILABLE [address] [address] [id number] 20:37:00 Test Item Value Reference Range Interpretation [...] (test code = CREA) 0.6 mg/dl 0.6-1.2 [place] [address] [id number] 20:28:00 Test Item Value Reference Range Interpretation [...] code = MPV) 7.1 fL 8.0-11.0 A [facility] ParkCULTH[facility], [id number] 08:44:77ogz9Fmmrrnvq: Urine SpecimensCollected: 07/12/2019 15:00 Status: Final Last Updated: 2019 08:44 (1) err7 Culture Result (Final) (Final) Moderate Mixed Body Gabriela Isolated No Pathogens Isolated No Further Workup PerformedAspirus Langlade Hospital-LufkinFL LIMITED [id number] 17:53:41Procedures: [place] LIMITED IVPExam Date: 07/12/2019 3:21 PMOrdering Physician: REHAN COTTONClinical Indication: [id number]: Flank painComparison: CT abdomen/pelvis, 05/17/19Findings: Frontal radiographs [...] PMDictated By: ELMER PHAMDate: 07/12/2019 17:47[facility] OF [id number] 15:56:00 Test Item Value Reference Range Interpretation Comments Lipase (test code = LIPA) 97 U/L 73-[address]-LufkinHEPATIC FUNCTION PANEL (LIVER)2019-07-12 15:56:00 Test Item [...] (test code = 0.2 mg/dl 0.0-1.1 IBIL) [address]-LufkinURINALYSIS WITH [id number] 15:51:00 Test Item Value Reference Range Interpretation Comments Color (test code = UCOLR) YELLOW Clarity (test code = UCLAR) CLEAR Glucose (test code = UGLUC) NEGATIVE NEGATIVE N Bilirubin (test code = UBILI) NEGATIVE NEGATIVE N Ketones (test code = UKET) NEGATIVE NEGATIVE N Specific Drayden (test code = 1.020 1.005-1.030 A USPGR) [...] code = UBACT) 4+ None Seen,Trace A [address] LAB CHEM [id number] 15:09:00 Test Item Value Reference Range Interpretation [...] (test code = CREA) 0.6 mg/dl 0.6-1.[address] LAB CBC WITH AUTO [id number] 15:08:00 Test Item Value Reference Range Interpretation [...] (test code = IG%) 0.4 % 0.0-0.[address]-[place]CT ABDOMEN/PELVIS W/[id number] 16:33:46NPO 4 hours. Do not withhold medsProcedures: CT ABDOMEN/PELVIS W/CONTRASTExam Date: 05/17/2019 1:31 PMOrdering Physician: MERLE LYNNEClinical Indication: [id number]: Abdominal painComparison: CT abdomen/pelvis, 04/09/19TECHNIQUE: Spiral multislice [...] MD05/17/2019 4:27 PMDictated By: ELMER PHAMDate: 05/17/2019 16:27[facility] [id number] 16:20:00 Test Item Value Reference Range Interpretation Comments Lipase (test code = LIPA) 70 U/L 73-[address] [facility] LAB CHEM [id number] 15:24:00 Test Item Value Reference Range Interpretation [...] 0.6-1.[address] [facility] LAB LACTIC [id number] 15:23:00 Test Item Value Reference Range Interpretation Comments LACTATE (test code = LAC) 1.39 mmol/l 0.90-1.[address] [facility] LAB CBC WITH AUTO [id number] 15:21:00 Test Item Value Reference Range Interpretation [...] = IG%) 0.5 % 0.0-0.4 H [facility]kinURINALYSIS WITH [id number] 15:08:00 Test Item Value Reference Range Interpretation Comments Color (test code = UCOLR) YELLOW Clarity (test code = UCLAR) CLEAR Glucose (test code = UGLUC) NEGATIVE NEGATIVE N Bilirubin (test code = UBILI) NEGATIVE NEGATIVE N Ketones (test code = UKET) NEGATIVE NEGATIVE N Specific Drayden (test code = 1.025 1.005-1.030 A USPGR) [...] code = UBACT) 2+ None Seen,Trace A [facility]-Ute ParkCT ANGIO HEAD W/WO [id number] 16:28:5720 g Cathlon Above the Antecubital or higher requiredProcedure: CT ANGIO HEAD W/WO CONTRASTOrder Date: 05/12/2019 3:30 PMOrdering Provider: REHAN VANG SA NDERSClinical Indication: [id number]: HeadacheComparison: NoneTechnique: Using a helical scanner, sequential axial imaging of the brain wasobtained before and after the administration of the contrast medium. At anindependent workstation, 3-D reconstructions of the rosebud of [place] wereobtained.This examwas performed according to [...] PMDictated By: FARZAD DEWITTDate: 05/12/2019 16:22[facility] OF PAAUILOCT ABDOMEN/PELVIS W/[id number] 14:36:05NPO 4 hours. Do not withhold medsProcedure: [...] MD 04/09/20192:29 PMDictated By: GLORY BENITEZKDate: 04/09/2019 14:29[facility] WITH AUTO [id number] 09:02:00 Test Item Value Reference Range Interpretation [...] code = 0.5 % 0.0-0.4 H IG%) [facility]kinCB WITH AUTO [id number] 09:14:00 Test Item Value Reference Range Interpretation [...] (test code = 0.4 % 0.0-0.4 IG%) [facility]-[id number] 09:12:00 Test Item Value Reference Range Interpretation [...] 0.5-1.3 code = CREA) EGFR if >60 Maltese (test code mL/min/1.73m\\ = EGFRAA) S\\2 EGFR if Non- >60 Estimate d Glomerular Maltese (test code mL/min/1.73m\\ Filtrat ion Rate (eGFR) [...] of c hronic kidney failure. [facility]-LufkinSP PERC PLMNT MIDLINE NO PORT > [...] PMDictated By: WILEY VELÁZQUEZDate: 04/07/2019 16:05[facility] OF PAAUILOCT ABDOMEN/PELVIS W/[id number] 22:50:40PROCEDURE INFORMATION:Exam: CT Abdomen and pelvis with [...] PM CDT.Dictated By: ELMER PHAMDate: 04/04/2019 22:50[facility] [id number] 21:22:00 Test Item Value Reference Range Interpretation Comments Lipase (test code = LIPA) 89 U/L 73-393 [facility] ClaireHEPATIC FUNCTION PANEL (LIVER)2019-04-04 21:22:00 Test Item Value [...] code = 0.3 mg/dl 0.0-1.1 IBIL) [facility] LAB CHEM [id number] 21:07:00 Test Item Value Reference Range Interpretation [...] code = CREA) 0.6 mg/dl 0.6-1.[address] [facility] LAB URINALYSIS WITHOUT [id number] 21:05:00 Test Item Value Reference Range Interpretation Comments Color (test code = UCOLR) Yellow Lt. Yellow A Clarity (test code = UCLAR) Slightly Cloudy Glucose (test code = UGLUC) 100 Negative A Bilirubin (test code = UBILI) Negative Negative N Ketones (test code = UKET) Negative Negative N Specific Drayden (test code = >=1.030 1.005-1.030 A USPGR) Blood (test code = UBLD) Negative Negative N PH (test code = UPH) 5.5 4.5-8.0 A Protein (test code = UPROT) Negative Negative N Urobilinogen (test code = U 0.2 >0.2 N UROB) Nitrite (test code = UNITR) Negative Negative N Leukocyte Esterase (test code Negative Negative N = ULEUK) [facility] LAB CBC WITH AUTO [id number] 21:04:00 Test Item Value Reference Range Interpretation [...] = IG%) 0.5 % 0.0-0.[address] [facility] LAB , [id number] 21:04:00 Test Item Value Reference Range Interpretation Comments (Urine) (test code = Negative PREGU) ONLY AVAILABLE 8A-12[facility] HospitalkinE [id number] 16:05:00 Test Item Value Reference Range Interpretation Comments Sodium (test code = CANCELED mmol/l The r eleased value NA) 141 was cancele d by [id number] on 04/04/2019 16:0 5 Potassium (test code CANCELED mmol/l The released value = K) 3.9 was cancele d by [id number] on 04/04/2019 16:0 5 CO2 (test code = CANCELED mmol/l The rele ased value CO2) 23 was canceled by [id number] on 04/04/2019 16:0 5 Chloride (test code CANCELED mmol/l The r eleased value = CL) 108 was cancele d by [id number] on 04/04/2019 16:0 5 Glucose (test code = CANCELED mg/dl The r eleased value GLU) 96 was canceled by [id number] on 04/04/2019 16:0 5 Calcium (test code = CANCELED mg/dl The r eleased value CALC) 8.8 was cancele d by [id number] on 04/04/2019 16:0 5 BUN (test code = CANCELED mg/dl The relea sed value BUN) 11 was canceled by [id number] on 04/04/2019 16:0 5 Creatinine (test CANCELED mg/dl code = CREA) [facility] CenterTOLOGY [id number] 11:08:[address] [place] [id number]: [phone] SPWH #: [id number] MedicalDirector: Seth Valdez M.D.Surgical Pathology Consultation ReportPatient Name: LAUREN BETH Case #: [id number] Med. Rec. #:[id number] [id number] Date: 03/21/2019 : 1985(Age:33) Received: 03/23/2019 [...] greatest dimension. The cystsarefilled with clearserous fluid. Corporate Librarian sections of the ovaryandpossible fallopian tube are submitted in cassettes A1-A8. 03/23/2019 Seth Valdez MD, Board Certified in Anatomic Pathology Microscopic DescriptionMicroscopic examination of the right ovary reveals fibrovascularadhesionsalong the surface of the ovary as well as along the accompanyingfallopiantube. The ovarian parenchyma contains follicular cysts, benign serouscyst,as well as numerous corpus albicans. No areas of endometriosis areseen. Billing Fee Code(s): A; 25703CwxmmyfgAurora [facility] Center– Milwaukeekin- US TRANSVAGINAL W/[id number] 16:45:00 Patient Name: ADELIA BETH Unit No: [id number] EXAMS: CPT CODE: [id number] US TRANSVAGINAL W/PELVIS 40547 CLINICAL HISTORY: Right lower quadrant pain. Status [...] MD Technologist: Dipesh Lopez RDMS, T Probe: [id number] Trnscrbd D/ (1645) t.SDR.YOS Orig Print D/T: S: 03/10/2019 (7398) [facility] NAME: ADELIA BETH Radiology Department [facility] Hilaria Calderón [address] : 1985 AGE: 33 SEX: F [place] [address] LOC: DayanaraERS PHONE #: [phone] EXAM DATE: 03/10/2019 STATUS: REG ER FAX #: [phone] RAD NO: Page 1 Signed Report Patient Name: ADELIA BETH Unit No: [id number] EXAMS: CPT CODE: [id number] US TRANSVAGINAL W/PELVIS 42481 <Continued> [facility] NAME: ADELIA BETH Radiology Department PHYS: SUE. - Hilaria Calderón [address] : 1985 AGE: 33 SEX: F [place] [address] LOC: DayanaraERS PHONE #: [phone] EXAM DATE: 03/10/2019 STATUS: REG ER FAX #: [phone] RAD NO: Page 2 Signed Report- US TRANSVAGINAL W/[id number] 16:45:00 Patient Name: LAUREN BETH Unit No: [id number] EXAMS: CPT CODE: [id number] US TRANSVAGINAL W/PELVIS 74398 CLINICAL HISTORY: Right lower quadrant pain. Status [...] hysterectomy and left oophorectomy. 2. Enlargement of theright ovary with hemorrhagic cyst as well as simple cyst as described above. Blood flow is identified in the right ovary. at 1645 Reported and signed by: Mario Guidry MD CC: Hilaria Calderón MD Technologist: Dipesh Lopez RDMS, T Probe: [id number] Trnscrbd D/ (5605) tMARTIN Orig Print D/T: S: 03/10/2019 (0253) [facility] NAME: LAUREN BETH Radiology Department PHYS: SUE. - Hilaria Calderón [address] : 1985 AGE: 33 SEX: F [place], [place] [address] LOC: DayanaraERS PHONE#: [phone] EXAM DATE: 03/10/2019 STATUS: [facility] ER FAX #: [phone] RAD NO: [id number] Page 1 Signed Report Patient Name: LAUREN BETH Unit No: [id number] EXAMS: CPT CODE: [id number] US TRANSVAGINAL W/PELVIS 23011 (Continued) [facility] NAME: LAUREN BETH Radiology Department PHYS: SUE.Faustino - Hilaria Calderón [address] : 1985 AGE: 33 SEX: F [place], [place] [address]VELQ NO: [id number] LOC: DayanaraERS PHONE #: [phone] EXAM DATE: 03/10/2019 STATUS: DEP ER FAX #: [phone] RAD NO: [id number] Page 2 Signed Report- US PELVIS [id number] 16:45:00 Patient Name: ADELIA BETH Unit No: [id number] EXAMS: CPT CODE: [id number] US PELVIS COMPLETE 46324 CLINICAL HISTORY: Right lower quadrant pain. Status [...] is identified in the right ovary. at 9125 Reported and signed by: Mario Guidry MD CC: Hilaria Calderón MD Technologist: Dipesh Lopez RDMS, RVT Probe: Trnscrbd D/ (9862) VereniceYOS Orig Print D/T: S: 03/10/2019 (7408) [facility] NAME: ADELIA BETH Radiology Department PHYS: Hilaria Maldonado [address] : 1985 AGE: 33 SEX: F [place], [place] [address] LOC: ALONDRA PHONE #: [phone] EXAM DATE: 03/10/2019 STATUS: REG ER FAX #: [phone] RAD NO: Page 1 Signed Report Patient Name: ADELIA BETH Unit No: [id number] EXAMS: CPT CODE: [id number] US PELVIS COMPLETE 72285 <Continued> [facility] NAME: ADELIA BETH Radiology Department PHYS: GUTCONCHIS. - Hilaria Calderón [address] : 1985 AGE: 33 SEX: F [place], [place] [address] LOC: ALONDRA PHONE #: [phone] EXAM DATE: 03/10/2019 STATUS: REG ER FAX #: [phone] RAD NO: Page 2 Signed Report- US PELVIS [id number] 16:45:00 Patient Name: LAUREN BETH Unit No: [id number] EXAMS: CPT CODE: [id number] US PELVIS COMPLETE 15310 CLINICAL HISTORY: Right lower quadrant pain. Status [...] Dipesh Lopez RDMS, RVT Probe: Trnscrbd D/ (8675) Ro Orig Print D/T: S: 03/10/2019 (3425) [facility] NAME: LAUREN BETH Radiology Department PHYS: SUE. - Hilaria Calderón [address] : 1985 AGE: 33 SEX: F [place], [place] [address] LOC: ALONDRA PHONE #: [phone] EXAM DATE: 03/10/2019 STATUS: DEP ER FAX #: [phone] RAD NO: [id number] Page 1 Signed Report Patient Name: LAUREN BETH Unit No: [id number] EXAMS: CPT CODE: [id number] US PELVIS COMPLETE 09391 (Continued) [facility] NAME: LAUREN BETH Radiology Department PHYS: SUE.01 - Stephane,Hilaira [address] : 1985 AGE: 33 SEX: F [place], [place] [address] : ALONDRA PHONE #: [phone] EXAM DATE: 03/10/2019 STATUS: [facility] ER FAX #: [phone] RAD NO: [id number] Page 2 Signed ReportCBC W/AUTO DIFF 2019-03-10 [...] = PLTMR) UA RFLX MICR CULT IF [id number] 16:07:00 Test Item Value Reference Range Interpretation [...] A Indication for culture: Suprapubic PainUR HCG [id number] 16:07:00 Test Item Value Reference Range Interpretation [...] culture: Suprapubic PainUA RFLX MICR CULT IF [id number] 16:04:00 Test Item Value Reference Range Interpretation [...] EPIU) Indication for culture: Suprapubic PainUR HCG [id number] 16:04:00 Test Item Value Reference Range Interpretation [...] culture: Suprapubic PainUA RFLX MICR CULT IF [id number] 15:55:00 Test Item Value Reference Range Interpretation [...] RARE-FEW Indication for culture: Suprapubic PainUR HCG [id number] 15:55:00 Test Item Value Reference Range Interpretation [...] and tested. Indication for culture: Suprapubic PainED2 [id number] 01:18:00 Test Item Value Reference Range Interpretation [...] code = MPV) 6.9 fL 8.0-11.0 A [facility] URINE [id number] 00:55:00 Test Item Value Reference Range Interpretation Comments Color (test code = UCOLR) Yellow Lt. Yellow A Clarity (test code = UCLAR) Clear Glucose (test code = UGLUC) NEGATIVE NEGATIVE N Bilirubin (test code = UBILI) NEGATIVE NEGATIVE N Ketones (test code = UKET) NEGATIVE NEGATIVE N Specific Drayden (test code = USPGR) 1.030 1.005-1.030 A Blood (test code = UBLD) NEGATIVE NEGATIVE N PH (test code = UPH) 6.0 4.5-8.0 A Protein (test code = UPROT) Trace NEGATIVE A Urobilinogen (test code = U UROB) 0.2 >0.2 N Nitrite (test code = UNITR) NEGATIVE NEGATIVE N Leukocyte Esterase (test code = NEGATIVE NEGATIVE N ULEUK) [facility] , [id number] 00:54:00 Test Item Value Reference Range Interpretation Comments (Urine) (test code = Negative PREGU) [facility] HospitalIvfsgo-[id number] 13:07:00 Test Item Value Reference Range Interpretation Comments Lipase (test code = LIPA) 106 U/L 73-393 [facility]/PELVIS W/[id number] 12:24:12Procedures: ED2 CT ABDOMEN/PELVIS W/CONTRASTExam Date: 02/07/2019 10:11 AMOrdering Physician: WYATT SOTOMAYORClinical Indication: [id number]: Epigastric painComparison: CT abdomen/pelvis, 01/27/19TECHNIQUE: Spiral multislice [...] PMDictated By: ELMER PHAMDate: 02/07/2019 12:17[facility] [address]2019-08-10 10:48:00 Test Item Value Reference Range [...] (test code = TP) 7.6 gm/dl 6.4-8.1 [facility] URINE [id number] 10:45:00 Test Item Value Reference Range Interpretation Comments Color (test code = UCOLR) Yellow Lt. Yellow A Clarity (test code = UCLAR) Sl Cloudy Glucose (test code = UGLUC) NEGATIVE NEGATIVE N Bilirubin (test code = UBILI) NEGATIVE NEGATIVE N Ketones (test code = UKET) NEGATIVE NEGATIVE N Specific Drayden (test code = 1.025 1.005-1.030 A USPGR) Blood (test code = UBLD) NEGATIVE NEGATIVE N PH (test code = UPH) 5.5 4.5-8.0 A Protein (test code = UPROT) NEGATIVE NEGATIVE N Urobilinogen (test code = U UROB) 0.2 >0.2 N Nitrite (test code = UNITR) NEGATIVE NEGATIVE N Leukocyte Esterase (test code = NEGATIVE NEGATIVE N ULEUK) [facility] , [id number] 10:45:00 Test Item Value Reference Range Interpretation Comments (Urine) (test code = Negative PREGU) [facility] [id number] 10:44:00 Test Item Value Reference Range Interpretation [...] code = MPV) 6.8 fL 8.0-11.0 A [facility]CT ABDOMEN/PELVIS W/[id number] 12:29:19s/p hysterectomy; rlq painProcedure: CT ABDOMEN/PELVIS W/CONTRASTOrder Date: 01/27/2019 10:57 AMOrdering Provider: DR LEXUS CASTREJON ACOSTAClinical Indication: [id number]: Abdominal painComparison: September 30, 2018TECHNIQUE:The abdo men [...] PMDictated By: GLORY BENITEZKDate: 01/27/2019 12:23[facility] OF PAAUILOURINALYSIS WITH [id number] 12:10:00 Test Item Value Reference Range Interpretation Comments Color (test code = UCOLR) YELLOW Clarity (test code = UCLAR) CLEAR Glucose (test code = UGLUC) NEGATIVE NEGATIVE N Bilirubin (test code = UBILI) NEGATIVE NEGATIVE N Ketones (test code = UKET) NEGATIVE NEGATIVE N Specific Drayden (test code = USPGR) <=1.005 1.005-1.030 A [...] = UBACT) Trace None Seen,Trace N [facility] HospitalAzqeaz-[id number] 11:49:00 Test Item Value Reference Range Interpretation Comments Lipase (test code = LIPA) 91 U/L 73-393 [facility] ClaireAMYLASE, [id number] 11:49:00 Test Item Value Reference Range Interpretation Comments Amylase (test code = AMYL) 45 U/L 25-[address] [facility] LAB CHEM [id number] 11:25:00 Test Item Value Reference Range Interpretation [...] 0.6-1.[address] [facility] LAB CBC WITH AUTO [id number] 11:23:00 Test Item Value Reference Range Interpretation [...] code = IG%) 0.6 % 0.0-0.4 H [facility] PELVIS [id number] 07:55:25h/o complex right ovarian cystsProcedure: Pelvic ultrasound.CLINICAL [...] 12/07/20187:49 AMDictated By:WILEY VELÁZQUEZDate: 12/07/2018 07:49[facility] OF [id number] 03:11:00 Test Item Value Reference Range Interpretation Comments Lipase (test code = LIPA) 136 U/L 73-393 [facility] ClaireHEPATIC FUNCTION PANEL (LIVER)2018-12-07 03:10:00 Test Item Value [...] code = 0.1 mg/dl 0.0-1.1 IBIL) [facility] LAB CHEM [id number] 02:41:00 Test Item Value Reference Range Interpretation [...] 0.6-1.[address] [facility] LAB CBC WITH AUTO [id number] 02:39:00 Test Item Value Reference Range Interpretation [...] = IG%) 0.5 % 0.0-0.4 H [facility]kinURINALYSIS WITH [id number] 02:37:00 Test Item Value Reference Range Interpretation Comments Color (test code = UCOLR) YELLOW Clarity (test code = UCLAR) CLEAR Glucose (test code = UGLUC) 500 NEGATIVE A Bilirubin (test code = UBILI) NEGATIVE NEGATIVE N Ketones (test code = UKET) TRACE NEGATIVE A Specific Drayden (test code = USPGR) >=1.030 1.005-1.030 A [...] code = UBACT) 2+ None Seen,Trace A [facility]ufkinCULTURE, [id number] 07:39:00CULTURE RIGHT ABDOMEN WOUND CARE DEPTSpecimen: AbdomenCollected: [...] Sc (+/-) Negative - ICR (+/-) Negative -[facility]kinXR CHEST AP/PA 1 [id number] 05:15:17Procedure: XR CHEST AP/PA 1 VIEWOrder Date: 09/30/2018 8:28 PMOrdering Provider: DIMAS Haskinsinical Indication: [id number]: Acute chest painComparison: May 13, 2017Findings:Cardiac size is magnified by technique.Pulmonary vasculature is normal.Mediastinal contour is normal.Aortic contour is normal.There is no consolidation or effusion.There is no evidence of active tuberculosis.There is no mass or pneumothorax.There is no skeletal abnormality.Impression: Negative AP portable chest x-ray.This final report was electronically signed by Dr Farzad Dewitt MD 10/01/20185:08 AMDictated By: FARZAD DEWITTDate: 10/01/2018 05:08 [facility]LV[facility] W/O [id number] 00:42:26NPO 4 hours. Do not withhold medsEXAM:CT [...] CDT.Dictated By: REHAN AZARDate: 10/01/2018 00:42[facility] OF [id number] 21:37:00 Test Item Value Reference Range Interpretation Comments Lipase (test code = LIPA) 82 U/L 73-393 [facility] ClaireHEPAT[facility] FUNCTION PANEL (LIVER)2018-09-30 21:37:00 Test Item Value [...] code = 0.5 mg/dl 0.0-1.1 IBIL) [facility] LAB CHEM [id number] 21:10:00 Test Item Value Reference Range Interpretation [...] 0.6-1.3 [address] [facility] LAB CBC WITH AUTO [id number] 21:09:00 Test Item Value Reference Range Interpretation [...] (test code = IG%) 0.3 % 0.0-0.4 [facility] W/WO TUBE,ZNB-[id number] 12:44:00 RUN DATE: 09/04/18 [facility] PAGE 1 RUN TIME: 1454 Specimen Inquiry RUN USER: INTERFACE --PATIENT: DIEUDONNE BETHDAVIDE Charl[place] [facility] #: [id number] AGE/SX: 33/F ROOM: [facility] RE09/02/18REG DR: Elmer Flores : 87 BED: A DIS: 09/03/18 STATUS: DIS Coty TLOC: SPEC #: [id number] RECD: 09/02/18 STATUS: SOUHenok REQ #: [id number] MELISSA: 09/02/18- SUBM DR: Elmer Flores III ENTERED: 09/03/18 SP TYPE: OVARNOTMARINA PELAYO DR: ORDERED: LEVEL IV CODES: [id number] - OVARY, NOS PROCEDURES: LEVEL IV (Incomplete) TISSUES: OVARY, NOS - RIGHT OVARIAN CYST CLINICAL HISTORY 33 year old, acute pelvic pain (wpd) FINAL DIAGNOSIS Right ovarian cyst, excision: - benign simple cyst of ovary Tissue code 1 CPT code(s): 21026 [facility] 09/04/18 GROSS DESCRIPTION ANATOMIC [...] with multiple yellow-orange, centrally hemorrhagic corpora lutea. Corporate Librarian sections are submitted as A and B. telma/wpd 09/03/18 @ 1343 Signed Amaris Wharton MD 09/04/18 1244 END OF REPORT CBC W/AUTO [id number] 03:10:00 Test Item Value Reference Range Interpretation [...] NORMAL NORMAL code = PLTMR) CHEMISTRY 7 [id number] 14:15:00 Test Item Value Reference Range Interpretation [...] CA) 9.2 mg/dL 8.4-10.2 N CBC W/AUTO [id number] 13:42:00 Test Item Value Reference Range Interpretation [...] NORMAL NORMAL code = PLTMR) US INTRAVAGINAL [id number] 12:35:09Procedure: Pelvic ultrasound.CLINICAL INDICATION: Pelvic pain. Status [...] MD 09/01/201812:28 PMDictated By: WILEY VELÁZQUEZDate: 09/01/2018 12:28[facility] CBC WITH AUTO [id number] 11:31:00 Test Item Value Reference Range Interpretation [...] RS88 71 on 09/01/2018 11:31 ONLY AVAILABLE -[address] [place] [address]-[place] ABDOMEN/PELVIS W/O [id number] 11:11:01MLP CProcedure: CT ABDOMEN/PELVIS W/O CONTRASTOrder Date: 09/01/2018 9:28 AMOrdering Provider: CHIN Guilleninical Indication: [id number]: Abdominal pain. Left lower quadrant painComparison: 12/24/2017TECHNIQUE:CT [...] 09/01/201811:04 AMDictatedBy: GLORY BENITEZKDate: 09/01/2018 11:04[facility] LAB CHEM [id number] 10:26:00 Test Item Value Reference Range Interpretation [...] CREA) 0.4 mg/dl 0.6-1.3 L ONLY AVAILABLE [address] [place], [place] [address]kinSTA LAB URINALYSIS WITHOUT [id number] 09:59:00 Test Item Value Reference Range Interpretation Comments Color (test code = UCOLR) Yellow Lt. Yellow A Clarity (test code = UCLAR) Clear Glucose (test code = UGLUC) NEGATIVE Negative A Bilirubin (test code = UBILI) NEGATIVE Negative A Ketones (test code = UKET) NEGATIVE Negative A Specific Drayden (test code = USPGR) 1.015 1.005-1.030 A Blood (test code = UBLD) NEGATIVE Negative A PH (test code = UPH) 7.0 4.5-8.0 A Protein (test code = UPROT) NEGATIVE Negative A Urobilinogen (test code = U UROB) 0.2 >0.2 N Nitrite (test code = UNITR) NEGATIVE Negative A Leukocyte Esterase (test code = NEGATIVE Negative A ULEUK) ONLY AVAILABLE [address] [place] [address]-[place]ufkinUS INTRAVAGINAL PELVIS 2018-05-13 13:26:23Procedure: Pelvic ultrasound.CLINICAL INDICATION: [...] [facility] LAB CBC WITH AUTO [id number] 12:22:00 Test Item Value Reference Range Interpretation [...] (test code = 0.2 % 0.0-0.4 IG%) [facility] LAB CBC WITH AUTO [id number] 11:54:00 Test Item Value Reference Range Interpretation [...] 0.5 % 0.0-0.4 H IG%) ONLY AVAILABLE [address] [place] [address] LAB URINALYSIS WITHOUT [id number] 11:25:00 Test Item Value Reference Range Interpretation Comments Color (test code = UCOLR) Yellow Lt. Yellow A Clarity (test code = UCLAR) Clear Glucose (test code = UGLUC) NEGATIVE Negative A Bilirubin (test code = UBILI) NEGATIVE Negative A Ketones (test code = UKET) NEGATIVE Negative A Specific Drayden (test code = USPGR) 1.020 1.005-1.030 A Blood (test code = UBLD) NEGATIVE Negative A PH (test code = UPH) 7.0 4.5-8.0 A Protein (test code = UPROT) NEGATIVE Negative A Urobilinogen (test code = U UROB) 0.2 >0.2 N Nitrite (test code = UNITR) NEGATIVE Negative A Leukocyte Esterase (test code = NEGATIVE Negative A ULEUK) ONLY AVAILABLE [address] [place] [address] LAB , URINE 2018-05-13 11:25:00 Test Item Value Reference Range Interpretation Comments (Urine) (test code = Negative PREGU) ONLY AVAILABLE [address] [place] [address] LAB CHEM [id number] 11:23:00 Test Item Value Reference Range Interpretation [...] 0.5 mg/dl 0.6-1.3 L ONLY AVAILABLE [address] [place] [address]-[place]US INTRAVAGINAL PELVIS 2017-12-24 12:50:53Procedure: Pelvic ultrasound.CLINICAL INDICATION: [...] MD 12/24/201712:44 PMDictated By: WILEY VELÁZQUEZDate: 12/24/2017 12:50[facility]INAL[facility] WITH [id number] 10:22:00 Test Item Value Reference Range Interpretation Comments Color (test code = UCOLR) Yellow Clarity (test code = UCLAR) Clear Glucose (test code = UGLUC) NEGATIVE NEGATIVE N Bilirubin (test code = UBILI) NEGATIVE NEGATIVE N Ketones (test code = UKET) NEGATIVE NEGATIVE N Specific Drayden (test code = USPGR) 1.025 1.005-1.030 A [...] = UBACT) Trace None Seen,Trace N [facility]-LufkinLIPASE, [id number] 10:05:00 Test Item Value Reference Range Interpretation Comments Lipase (test code = LIPA) 40 U/L 8-223 [facility]-[id number] 10:05:00 Test Item Value Reference Range Interpretation [...] ( 4 - SerumAlbumin)] EGFR if >60 Maltese (test code mL/min/1.73m\\ = EGFRAA) S\\2 EGFR if Non- >60 Estimate d Glomerular Maltese (test code mL/min/1.73m\\ Filtrat ion Rate (eGFR) [...] of c hronic kidney failure. [facility] ABD/ PELVIS W/O CON (RENAL STONE)2017-12-24 [...] MD 12/24/20179:32 AMDictated By: WILEY VELÁZQUEZDate: 12/24/2017 09:38[facility] WITH AUTO DIFF 2017-12-24 09:26:00 Test Item [...] = 0.6 % 0.0-0.4 H IG%) AUTO [facility]/ PELVIS W/O CON (RENAL STONE) [...] on 3:19 AMCDT.Dictated By: MARVIN DOBBSDate: 06/21/2017 03:20[facility]INAL[facility] WITH [id number] 03:20:00 Test Item Value Reference Range Interpretation Comments Color (test code = UCOLR) YELLOW Clarity (test code = UCLAR) CLEAR Glucose (test code = UGLUC) NEGATIVE NEGATIVE N Bilirubin (test code = UBILI) NEGATIVE NEGATIVE N Ketones (test code = UKET) NEGATIVE NEGATIVE N Specific Drayden (test code = 1.020 1.005-1.030 A USPGR) [...] UBACT) None Seen None Seen,Trace N er [address] [place] [address]-[id number] 03:07:00 Test Item Value Reference Range Interpretation [...] ( 4 - SerumAlbumin)] EGFR if >60 Maltese (test code mL/min/1.73m\\ = EGFRAA) S\\2 EGFR if Non- >60 Estimate d Glomerular Maltese (test code mL/min/1.73m\\ Filtrat ion Rate (eGFR) [...] management of c hronic kidney failure. er [address] [place] [address]-fkinLIPASE, [id number] 03:07:00 Test Item Value Reference Range Interpretation Comments Lipase (test code = LIPA) 61 U/L 8-[address] [place] [address]-fkinCBC WITH AUTO [id number] 03:05:00 Test Item Value Reference Range Interpretation [...] code = 0.4 % 0.0-0.4 IG%) er [address] [place] [address]-[place]ufkinXR CHEST 2 PA [id number] 19:56:04 Procedure: XR CHEST 2 PA LATERALExam date: 05/13/2017 3:53 PMOrdering Provider: DR ASA BLOOMClinical Indication: fatigue, Chest painComparison: March 15, 2016Findings:Cardiomediastinal silhouette is within normal limits.The lungs are clear.No pleural effusion or pneumothorax. Osseous structures are nonacute.No evidence of active tuberculosis.Impression:No acute cardiopulmonary process.This final report was electronically signed by Dr Wiley Velázquez MD 05/13/20177:49 PMDictated By: WILEY VELÁZQUEZDate: 05/13/2017 19:55[facility] OF [id number] 16:53:00 Test Item Value Reference Range Interpretation [...] ( 4 - SerumAlbumin)] EGFR if >60 Maltese (test code mL/min/1.73m\\ = EGFRAA) S\\2 EGFR if Non- >60 Estimate d Glomerular Maltese (test code mL/min/1.73m\\ Filtrat ion Rate (eGFR) [...] of c hronic kidney failure. [facility] (HEMOGRAM ONLY)2017-05-13 16:32:00 Test Item Value [...] WILL BE NOTED ON THE RE PORT. [facility]kinURINALYSIS WITH [id number] 18:25:00 Test Item Value Reference Range Interpretation Comments Color (test code = UCOLR) YELLOW Clarity (test code = UCLAR) CLEAR Glucose (test code = UGLUC) NEGATIVE NEGATIVE N Bilirubin (test code = UBILI) NEGATIVE NEGATIVE N Ketones (test code = UKET) NEGATIVE NEGATIVE N Specific Drayden (test code = 1.025 1.005-1.030 A USPGR) [...] UR MISC) None Seen None Seen N [facility] Claire[facility]AT[facility] FUNCTION PANEL (LIVER)2016-10-09 18:21:00 Test Item Value [...] (test code = 0.1 mg/dl 0.0-1.1 IBIL) [facility]-[id number] 18:21:00 Test Item Value Reference Range Interpretation [...] mg/dl 8.4-10.2 = CALC) EGFR if >60 Maltese (test code mL/min/1.73m\\ = EGFRAA) S\\2 EGFR if Non- >60 Estimate d Glomerular Maltese (test code mL/min/1.73m\\ Filtrat ion Rate (eGFR) [...] and management of c hronic kidney failure. [facility] WITH AUTO [id number] 18:04:00 Test Item Value Reference Range Interpretation [...] (test code = 0 NRBC_AUTO) AUTO [facility]
[2023-04-09] MEDS ORDERED: PROMETHAZINE INJ 25 MG/ML AMP ONE (22:39)
[2023-04-09] MEDS ORDERED: FENTANYL CITR 100 MCG/2 ML ONE (22:40)
[2023-04-09] MEDS ORDERED: NA CHLORIDE 0.9% 1,000 ML ONE (22:40)
[2023-04-09 23:03] LABS: Absolute Lymphocytes (CBC) 2.8 K/uL (0.7-4.9); Lymphocytes % 24.3 % (15.3-44.8); MPV 6.6 fL (7.6-11.3); Platelets 323 thou/uL (152-406); RBC Red Blood Cell Count 4.09 M/uL (3.86-4.86)
[2023-04-09 23:39] LABS: Albumin 3.4 g/dL (3.4-5.0); Bilirubin Total 0.2 mg/dL (0.2-1.0); Protein, Total 7.3 g/dL (6.4-8.2)
[2023-04-09 23:50] LABS: Potassium 3.7 mEq/L (3.5-5.1)
[2023-04-10 01:32] LABS: Specific Gravity 1.013 (1.005-1.030)
[2023-04-10 01:34] LABS: Specific Gravity 1.013 (1.005-1.030); Urine Bacteria 20-50 /HPF (<20); Urine Bilirubin NEGATIVE (Negative); Urine Blood Negative (Negative); Urine Clarity Turbid (Clear); Urine Color Colorless (Yellow); Urine Glucose NEGATIVE (Negative); Urine Mucus Slight /HPF (None Seen); Urine Protein NEGATIVE (Negative); Urine RBC <5 /HPF (None Seen); Urine Urobilinogen Normal (Normal); Urine pH 5.5 (5.0-7.0)
--- NOTE | 2023-04-10 01:36 | EDPHYS ---
Physician Documentation [facility] Name: Hong Pace Age: 37 yrs Sex: Female : 1985 Arrival Date: 04/09/2023 Time: 22:00 Bed 16 Private MD: JOAQUIN Physician Cole Disla HPI: 04/09 23:02 This 37 yrs old Female presents to ER via Ambulatory with complaints of Abdominal Pain, kb Vomiting. 23:02 The patient presents with abdominal pain. Onset: The symptoms/episode began/occurred at kb 19:00. The symptoms do not radiate. Associated signs and symptoms: Pertinent positives: nausea and vomiting. The symptoms are described as constant. Modifying factors: The symptoms are alleviated by nothing, the symptoms are aggravated by pressure. Severity of pain: At its worst the pain was moderate in the emergency department the pain is unchanged. The patient has experienced similar episodes in the past. The patient has not recently seen a physician. Pt reports right lower quadrant/pelvic pain that started at 1900. States she had some pain to right flank earlier in the day as well. 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 - Social history:: Smoking status: Patient reports the use of cigarette tobacco products, denies chronic smoking, but will smoke occasionally. ROS: 23:01 Constitutional: Negative for fever, chills, and weight loss, kb 23:01 Abdomen/GI: Positive for abdominal pain, nausea and vomiting, 23:01 All other systems are negative, Exam: 23:01 Constitutional: This is a well developed, well nourished patient who is awake, alert, kb and in no acute distress. Head/Face: Normocephalic, atraumatic. ENT: Moist Mucous membranes Cardiovascular: Regular rate Respiratory: Respirations even and unlabored. No increased work of breathing. Talking in full sentences Skin: Warm, dry with normal turgor. Normal color. MS/ Extremity: Pulses equal, no cyanosis. Neurovascular intact. Full, normal range of motion. Neuro: Awake and alert, GCS 15, oriented to person, place, time, and situation. Moves all extremities. Normal gait. 23:01 Abdomen/GI: Inspection: abdomen appears normal, Bowel sounds: normal, Palpation: soft, in all quadrants, moderate abdominal tenderness, in the right lower quadrant, Vital Signs: 22:21 BP 128 / 96; Resp 18 S; Temp 99(O); Weight 63.5 kg; Height 5 ft. 4 in. ; Pain 9/10; cm10 22:24 Pulse 105; Pulse Ox 99% on R/A; jw7 22:30 BP 134 / 87; Pulse 81; Resp 20 S; Pulse Ox 99% on R/A; jw7 04/10 00:00 BP 122 / 77; Pulse 67; Resp 18 S; Pulse Ox 98% on R/A; jw7 04/09 22:21 Body Mass Index 24.03 (63.50 kg, 162.56 cm) cm10 04/09 22:21 Pain Scale: Adult cm10 MDM: 04/09 22:10 Patient medically screened. kb 04/10 01:35 Differential diagnosis: Endometriosis, Pyelonephritis, Ureterolithiasis, urinary tract kb infection. Data reviewed: vital signs, nurses notes. 01:38 ED course: I went in to discuss results with pt and give discharge instructions, pt had kb left room. Nurse reports pt was upset about not getting another dose of narcotic pain medication so she left prior to discharge. Pt was offered nonnarcotic pain management prior to leaving, but declined.. 04/09 22:10 Order name: CBC with Diff; Complete Time: 23:34 kb 04/09 22:10 Order name: CMP; Complete Time: 23:58 kb 04/09 22:10 Order name: Lipase; Complete Time: 23:58 kb 04/09 22:10 Order name: Test, Urine; Complete Time: 01:35 kb 04/09 22:10 Order name: Urinalysis w/ reflexes; Complete Time: 01:35 kb 04/09 22:19 Order name: CT Stone Protocol kb 04/09 22:10 Order name: IV Saline Lock; Complete Time: 23:22 kb 04/09 22:10 Order name: Labs collected and sent; Complete Time: 23:22 kb Administered Medications: 04/09 23:00 Drug: NS 0.9% IV 1000 ml IV at 1000 ml once Route: IV; Rate: 1000 ml; Site: left [facility] antecubital; 04/10 00:29 Follow up: Response: No adverse reaction; IV Status: Completed infusion; IV Intake: jw7 1000ml 04/09 23:00 Drug: fentaNYL (PF) IVP 50 mcg IVP once Route: IVP; Site: left antecubital; [facility] 04/10 00:29 Follow up: Response: No adverse reaction; Marked relief of symptoms [facility] 04/09 23:00 Drug: Promethazine IVP 12.5 mg IVP once Route: IVP; Site: left antecubital; [facility] 04/10 00:29 Follow up: Response: No adverse reaction; Marked relief of symptoms [facility] 01:37 Not Given (Patient Eloped): Rocephin - rocephin (ceftriaxone)1 grams IVPB once over 30 kl mins; (mix in 50 mL NS) 01:37 Not Given (Patient Eloped): fentanyl (pf)50 mcg IVP once kl Disposition Summary: 04/10/23 01:36 Discharge Ordered Notes: Location: Home kb Condition: Stable kb Diagnosis - UTI/ Urinary tract infection, site not specified kb Followup: kb - With: Emergency Department - When: As needed - Reason: Worsening of condition Followup: kb - With: Private Physician - When: 2 - 3 days - Reason: Recheck today's complaints, Continuance of care, Re-evaluation by your physician Discharge Instructions: - Discharge Summary Sheet kb - Urinary Tract Infection, Adult, [id number] kb Forms: - Medication Reconciliation Form kb - Thank You Letter kb - Antibiotic Education kb - Prescription Opioid Use kb - Patient Portal Instructions kb - Leadership Thank You Letter kb Prescriptions: - Macrobid 100 mg Oral Capsule - take 1 capsule ORAL route every 12 hours for 10 days; 20 capsule; Refills: 0, kb Product Selection Permitted Signatures: Dispatcher [employer] Trinity Carlson FNP-C FNP-Ckb Waits, Jodi RN RN jw7 Mirta Barraza RN RN cm10 Gris Moore RN kl Corrections: (The following items were deleted from the chart) 01:40 01:35 Counseling: I had a detailed discussion with the patient and/or guardian john paul regarding the historical points, exam findings, and any diagnostic results supporting the discharge/admit diagnosis, lab results, radiology results, the need for outpatient follow up, a family practitioner, to return to the emergency department if symptoms worsen or persist or if there are any questions or concerns that arise at home, kb
--- NOTE | 2023-04-10 01:36 | ER ---
Nurse's Notes [facility] Name: Hong Pace Age: 37 yrs Sex: Female : 1985 Arrival Date: 04/09/2023 Time: 22:00 Bed 16 Private MD: Diagnosis: UTI/ Urinary tract infection, site not specified Presentation: 04/09 22:21 Chief complaint: Patient states: right sided pelvic pain onset at 1900. Pt states that cm10 the pain began on the right flank. Pt states that she has vomited 7 times today. Pt dry heaving in triage. Pt reports urinary frequency. Coronavirus screen: Vaccine status: Patient reports receiving the 2nd dose of the covid vaccine. Client denies travel out of the [place] in the last 14 days. Ebola Screen: Patient denies travel to an Ebola-affected area in the 21 days before illness onset. No symptoms or risks identified at this time. Initial Sepsis Screen: Does the patient meet any 2 criteria? No. Patient's initial sepsis screen is negative. Does the patient have a suspected source of infection? No. Patient's initial sepsis screen is negative. Risk Assessment: Do you want to hurt yourself or someone else? Patient reports no desire to harm self or others. Onset of symptoms was April 09, 2023. 22:21 Method Of Arrival: Ambulatory cm10 22:21 Acuity: [place] 3 cm10 Triage Assessment: 22:20 General: Appears in no apparent distress. uncomfortable, Behavior is calm, cooperative, jw7 restless. Pain: Complains of pain in right lower quadrant Pain radiates to right low back Pain currently is 9 out of 10 on a pain scale. Quality of pain is described as sharp, Pain began 3 hours ago. Is continuous, Noted to be restless. EENT: No deficits noted. No signs and/or symptoms were reported regarding the EENT system. Neuro: [place] Agitation-Sedation Scale (RASS): 0 - Alert and Calm. Cardiovascular: Capillary refill < 3 seconds Clubbing of nail beds is absent JVD is absent Patient's skin is warm and dry. Respiratory: Airway is patent Trachea midline Respiratory effort is even, unlabored, Respiratory pattern is regular, symmetrical. GI: Abdomen is round non-distended, Bowel sounds present X 4 quads. Abd is soft Abdomen is tender to palpation in right lower quadrant. : No deficits noted. No signs and/or symptoms were reported regarding the genitourinary system. :. Derm: No signs and/or symptoms reported regarding the dermatologic system. Skin is intact, is healthy with good turgor, Skin is dry, Skin is normal, Skin temperature is warm. Musculoskeletal: No signs and/or symptoms reported regarding the musculoskeletal system. Circulation, motion, and sensation intact. Range of motion: intact in all extremities. 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 - Social history:: Smoking status: Patient reports the use of cigarette tobacco products, denies chronic smoking, but will smoke occasionally. Screenin:29 [facility] ED Fall Risk Assessment (Adult) History of falling in the last 3 months, 7 including since admission No falls in past 3 months (0 pts) Score/Fall Risk Level 0 - 2 = Low Risk Oriented to surroundings, Maintained a safe environment. Abuse screen: Denies threats or abuse. Denies injuries from another. Nutritional screening: No deficits noted. Tuberculosis screening: No symptoms or risk factors identified. Assessment: 22:30 General: see triage assessment. [facility] 23:30 Reassessment: Patient appears in no apparent distress at this time. No changes from [facility] previously documented assessment. Patient and/or family updated on plan of care and expected duration. Pain level reassessed. Patient is alert, oriented x 3, equal unlabored respirations, skin warm/dry/pink. 04/10 00:27 Reassessment: Patient appears in no apparent distress at this time. Patient and/or [facility] family updated on plan of care and expected duration. Pain level reassessed. Patient is alert, oriented x 3, equal unlabored respirations, skin warm/dry/pink. Patient states feeling better. Vital Signs: 04/09 22:21 BP 128 / 96; Resp 18 S; Temp 99(O); Weight 63.5 kg; Height 5 ft. 4 in. ; Pain 9/10; cm10 22:24 Pulse 105; Pulse Ox 99% on R/A; jw7 22:30 BP 134 / 87; Pulse 81; Resp 20 S; Pulse Ox 99% on R/A; jw7 04/10 00:00 BP 122 / 77; Pulse 67; Resp 18 S; Pulse Ox 98% on R/A; jw7 04/09 22:21 Body Mass Index 24.03 (63.50 kg, 162.56 cm) cm10 04/09 22:21 Pain Scale: Adult cm10 ED Course: 04/09 22:02 Patient arrived in ED. mr 22:10 Mik Trinity[facility] kb 22:10 Cole Disla MD is Attending Physician. kb 22:14 Rachana Sandoval RN is Primary Nurse. jw7 22:23 Triage completed. cm10 22:24 Arm band placed on Patient placed in an exam room, on a stretcher, on pulse oximetry. cm10 22:29 Patient has correct armband on for positive identification. Bed in low position. Call [facility] light in reach. Side rails up X2. 22:32 CT Stone Protocol In Process Unspecified. EDMS 22:50 Initial lab(s) drawn, by me, sent to lab. Inserted saline lock: 22 gauge in left jb4 antecubital area, using aseptic technique. Blood collected. 04/10 00:30 No provider procedures requiring assistance completed. [facility] 01:00 No apparent distress. Resting quietly. Appears to be sleeping. kl 01:31 IV discontinued, intact, bleeding controlled, No redness/swelling at site. Pressure kl dressing applied. Administered Medications: 04/09 23:00 Drug: NS 0.9% IV 1000 ml IV at 1000 ml once Route: IV; Rate: 1000 ml; Site: left [facility] antecubital; 04/10 00:29 Follow up: Response: No adverse reaction; IV Status: Completed infusion; IV Intake: jw 1000ml 04/09 23:00 Drug: fentaNYL (PF) IVP 50 mcg IVP once Route: IVP; Site: left antecubital; [facility] 04/10 00:29 Follow up: Response: No adverse reaction; Marked relief of symptoms [facility] 04/09 23: Drug: Promethazine IVP 12.5 mg IVP once Route: IVP; Site: left antecubital; jw7 04/10 00:29 Follow up: Response: No adverse reaction; Marked relief of symptoms jw7 01:37 Not Given (Patient Eloped): Rocephin - rocephin (ceftriaxone)1 grams IVPB once over 30 kl mins; (mix in 50 mL NS) 01:37 Not Given (Patient Eloped): fentanyl (pf)50 mcg IVP once kl Medication: 00:30 VIS not applicable for this client. jw7 Intake: 00:29 IV: 1000ml; Total: 1000ml. jw7 Outcome: 01:36 Discharge ordered by MD. coker 01:37 Discharged to home ambulatory, 01:37 Condition: stable 01:37 Patient left the ED. Signatures: Dispatcher [employer] EDMS Trinity Houser, ELENI-C SUPER[employer]OR [employer]-Gris Esquivel, RN RN Rufina Christina, Reg Reg Amanuel Pressley, RN RN jb4 Rachana Sandoval RN RN jw7 Martinez, Clarissa RN RN cm10
[2023-04-10 02:37] VITALS: TEMP 99
[2023-04-10 02:40] VITALS: BP 122/77; O2SAT 98
--- NOTE | 2023-04-10 11:12 | RAD REPORT ---
EXAM DESCRIPTION: CT - Stone Protocol - 04/10/2023 6:57 am CLINICAL HISTORY: Abd pain;Flank pain COMPARISON: None. TECHNIQUE: CT ABDOMEN PELVIS WITHOUT IV CONTRAST on 04/09/2023 10:19 PM CDT This exam was performed according to our departmental dose-optimization program, which includes autom ated exposure control, adjustment of the mA and/or kV according to patient size and/or use of iterati ve reconstruction technique. FINDINGS: Lower lungs are clear. Abdomen: Liver is fatty in attenuation. There is no biliary dilatation. Cholecystectomy was performed . There are postoperative changes of the greater curvature of the stomach. The pancreas and spleen ar e normal in appearance. Adrenal glands are normal. There is a 2 mm mid pole left renal calculus. Ther e is a 1 mm mid pole right renal calculus as well as at least 2 possible lower pole punctate right re nal calculi. There is no hydronephrosis. Abdominal aorta is normal in course and caliber without aneurysm. There is no free air. There is no r etroperitoneal adenopathy. Pelvis: There is no bowel obstruction. Urinary bladder is unremarkable. There is no free fluid. Hyste rectomy was performed. The appendix is not clearly seen. Skeleton: There are no acute osseous findings. No suspicious bony lesions. IMPRESSION: Minimal bilateral nephrolithiasis without hydronephrosis. Electronically signed by: Yrn Meade MD 04/09/2023 10:45 PM CDT Due to temporary technical issues with the PACS/Fluency reporting system, reports are being signed by the in house radiologist without review as a courtesy to ensure prompt reporting. The interpreting r adiologist is fully responsible for the content of the report.
== END 2023-04-10 01:37 | disposition home or self-care (01) ==
LOC: ER 22:00
DX: N39.0 Urinary tract infection, site not specified (principal)
CPT/HCPCS: 36415; 74176; 76377; 80053; 81001; 81025; 83690; 85025; J2550; J3010; J7030

== ENCOUNTER 2023-05-12 22:01 | Emergency (ER) | payer SELFPAY ==
--- OUTSIDE RECORDS SUMMARY | 2023-05-12 22:34 | XMS REPORT | Clinical Summary ---
:1985 Author Organization [facility] MD [facility] Center Address [address] [place] [address] Care Team Providers Name Role Phone Keila Valentine MD Primary Care Provider Navi Arango Unavailable Nuria Sahu MD Unavailable Allergies Active Allergy Reactions Criticality Noted Date Comments Ketorolac Itching Medium 07/19/2010 Medications Medication Sig Dispensed Refills Start Date End Date Status zolpidem (AMBIEN) 10 mg 0 07/01/2006 Active tablet citalopram (CeleXA) 40 0 03/10/2018 Active mg tablet levothyroxine 175 mcg 0 02/07/2011 Active cap estrogens, conjugated Take by mouth 0 04/22/2019 Active (PREMARIN ORAL) daily. Active Problems Problem Noted Date Diagnosed Date Surgical site infection 10/05/2018 Encounter for other preprocedural examination 09/08/2018 Overview: EKG 09/08/2018 NSR NR 68 Obesity [...] OVARIAN CYST SURGERY 08/29/2018 - Right 09/28/2018 VT EXCISION MAL LESION 09/23/2018 Abdomen/Right Procedure : EXCISION OF TRUNK/ARM/LEG 0.6-1.0 CM MALIGNA NT LESION OF TRUNK, right epi gastric; Surgeon: Nicolasa Valentine MD; Location: [facility] OR; Service: SURG ON C - [...] has been removed Depressive disorder 2005 Anxiety 2004 Family History Medical History Relation Name Comments -Breast cancer Mother Kathy Odell in 2 006 Relation Name Status Comments Mother Kathy Odell Social History Tobacco Use Types Packs/Day Years Used Date Smoking Tobacco: Former Cigarettes 0.3 10 07/2004 - 05/11/2017 Smokeless Tobacco: Never Alcohol Use Standard Drinks/Week Comments No 0 (1 standard drink = 0.6 oz pure alcoho l) Sex and Gender Information Value Date Recorded Sex Assigned at Not on file Gender Identity Not on file Sexual Orientation Not on file Obstetrics History Last Filed Vital Signs Not on file Plan of Treatment Health Maintenance Due Date Last Done Comments COVID-19 Vaccination (#1) 01/11/1987 Results Not on fileafter 05/12/2022 Advance Directives Code Status Date Activated Date Inactivated Comments Full Code 10/04/2018 8:21 PM 10/08/2018 5:55 PM Code Status Date Activated Date Inactivated Comments Full Code 09/23/2018 1:48 PM 09/23/2018 6:55 PM Care Teams Director Strategy Relationship Specialty Start Date End Date Keila Valentine MD PCP - General Surgical Oncology 08/26/18 [address] [place] [address] Navi Arango FNP PCP - External [facility] 09/08/18 Care Provider [facility] [place] [address] Nuria Sahu MD Consulting Physician Dermatology 10/20/18 [address] [place] [address]
--- OUTSIDE RECORDS SUMMARY | 2023-05-12 22:39 | XMS REPORT | Continuity of Care Document ---
:1985 Author Organization [facility] t Address [address] [place] [address] [place] [id number] Care Team Providers Name Role Phone Keila [...] Attending Clinician MONTSERRAT ACOSTA Attending Clinician Unavailable [place] ACNP, [place]at Attending Clinician SANTINO_Ingrid_Truman_ Attending Clinician Unavailable MAGDALENE LUCIA Attending Clinician Unavailable Magdalene Lucia MD Attending Clinician Unknown, Attending Attending Clinician Unavailable RIDGE PAGAN Attending Clinician Unavailable Ridge Pagan MD Attending Clinician Doctor Unassigned, [place] Attending Clinician Unavailable Truman Quintero Attending Clinician Unavailable TRICE HARRIS Attending Clinician Unavailable Steven PAINTLESS DENT REPAIR TECHNICIANTrice Attending Clinician Ameena Dupree Attending Clinician AMEENA [...] Unavailable ELIUD STAFFORD Attending Clinician Unavailable LIZBETH WOLEF Attending Clinician Unavailable FLOYD VERA Attending Clinician [...] Number Effective Date Expiration Date S ource [id number] 1958 00:00:00 MEDI-SHARE C1 [id number] [facility] MEDI-SHARE C1 [id number] [facility] MEDI-SHARE C1 [id number] [facility] [id number] 1958 00:00:00 MEDI-SHARE C1 [id number] [facility] PHCS GENERIC [id number] 2018 00:00:00 Problems Condition Condition Condition Status [...] this [place] ral ral 00 note MD payneinatimorena wise might be Anderso n n different n from the Cancer original. [...] ity of of other of other 00:00: [place] part of part of 00 trunk trunk [...] [facility] ([facility] V/SA[facility] [id number] Endometrio Problem Active Co mmon shannon [facility] No known No known Disease Unive rs active active ity of problems problems [facility] Allergies, Adverse Reactions, Alerts Allergy Allergy Status Severity Reaction(s) Onset Inactive Treating Comm ents Source Name Type Date Date Clinician ket[place] DA Active [place] rash 2021-07 [facility] 0[facility]24 [place] 00:00: d 00 [facility] ketorola DA Active U rash [facility] 2-07 [place] 00:00: Orthope 00 [facility] [place]ET[place]OLA DRUG Active Low Rash 2020-07 Univers C INGREDI 08-22 ity of 00:00: [place] 00 [facility] Ket[place] Propensi Active Rash 2020-07 Univer s c ty to 08-22 ity of adverse 00:00: [place] reaction 00 [facility] ketorola DA Active LA 2018-0 [facility] 9[facility]10 [facility] [place] ket[place]ola DA Active U rash [facility] 9-24 [place] 00:00: d 00 [facility] ketorola DA Active U 2014-0 [facility] c 9-24 [place] 00:00: d 00 [facility] [place] Drug Active Itching Univers c Allergy 07-19 ity of 00:00: [place] 00 MD [facility] KETOROLA DRUG Active Med Itching MD Duarte INGREDI - Gian 00:00: n 00 Toradol DA Active Unknown Rash [facility] (LUF/LI V/SA) 0 Drug Active Unknown Common allergy [facility] Family History Family Member Diagnosis Comments Start Date Stop Date Source Natural mother -Breast cancer [facility] MD Naif Ayoub [facility] Social History Social Habit Start Date Stop Date Quantity Comments Source Sexual orientation [facility] MD Bah [facility] [place] History of Tobacco [facility] - Use [facility] ASSERTION [facility] Gender identity Universit y [facility] Exposure to 2022-11-10 2022-11-20 Not sure [facility] SARS-CoV-2 (event) 00:00:00 21:50:00 [facility] Tobacco use and 2021-08-29 2021-08-29 Smokeless Universit y of exposure 00:00:00 00:00:00 tobacco non-user [facility] History of Social 2019-10-10 2019-10-10 Univers ity of function 00:00:00 00:00:00 [place] MD [facility] Alcohol intake 2018-10-04 2018-10-04 Current University of 00:00:00 00:00:00 non-drinker of [place] MD Lila muñoz [facility] (finding) Cigarettes smoked 2018-09-04 2018-09-04 Univers ity of current (pack per 00:00:00 00:00:00 [place] Zoltan Neely ) - Reported Cancer Ce nter Cigarette 2018-09-04 2018-09-04 University of pack-years 00:00:00 00:00:00 [place] MD [facility] Sex Ass[birth year] At [birth year] Universit y of 00:00:00 00:00:00 [place] MD Olvin [facility]uelos [facility] Smoking Status Start Date Stop Date Source [facility] smoking [facility] consumption unknown Never smoked tobacco [facility] Former Smoker 2020-05-03 00:00:00 2020-05-03 [facility] Medical Ce nter Medications Ordered Filled Start Stop Current Ordering Indication Dosage Frequency Signature Comments Components Source Medication Medication Date Date Medication? Clinician (SIG) Name Name ondansetron No 4mg 4 mg, Slow Univers [...] ONCE, 1 Medical 50 mcg dose, On [facility] 03/19/23 at 0030, Routine FENTanyl PF 2022- No 50ug 50 mcg, Un spring (SUBLIMAZE 03-19 Slow IV ity o f (PF)) 05:30: 04:42 Push, [place] injection 00 :00 ONCE, 1 Medical 50 mcg dose, On [facility] 03/19/23 at 0030, Routine acetaminoph 2022- No 975mg 975 mg, U nivers en 12-25 Oral, ity of (TYLENOL) 05:30: 17:29 ONCE, 1 [place] tablet 975 00 :00 dose, On Medic al mg [facility] 12/25/22 at 0030, JOSE ondansetron 2022- No 4mg 4 mg, Slow Univers (ZOFRAN 12-25 IV Push, ity of (PF)) 05:30: 17:29 ONCE, 1 [place] injection 4 00 :00 dose, On Medi felipa mg [facility] 12/25/22 at 0030, JOSE NaCl 0.9% 2022- No 1000mL at 999 Uni vers (NS) bolus 12-16 mL/hr, ity of infusion 23:30: 00:19 1,000 mL, [place] 1,000 mL 00 :00 IV Medical Piggyback, [place] ONCE, 1 dose, On [place] 12/16/22 at 1830, STAT famotidine 2022- No 20mg 20 mg, Univ ers (PEPCID 12-16 Slow IV ity of (PF)) 23:00: 22:58 Push, [place] injection 00 :00 ONCE, 1 Medical 20 mg dose, On [facility] 12/16/22 at 1800, JOSE FENTanyl PF 0 2022- No 75ug 75 mcg, Un spring (SUBLIMAZE 12-16 Slow IV ity o f (PF)) 23:00: 22:57 Push, [place] injection 00 :00 ONCE, 1 Medical 75 mcg dose, On Branch 12/16/22 at 1800, STAT proMETHazin 2022-2022- No 25mg 25 mg, IV Univers e 12-16 Piggyback, ity of (PHENERGAN) 22:45: 22:51 [place]CE, 1 [place] 25 mg in 00 :00 dose, On Medical NaCl 0.9% Sun Branch (NS) 50 mL 12/16/22 at IV 1745, JOSE piggyback proMETHazin 2022-0 Yes [id number] 25mg Take 1 Univers e 25 mg 6-18 tablet by ity of tablet 00:00: mouth [place] 00 every 6 Medical (six) Branch hours as needed for Nausea and Vomiting (N/V). proMETHazin 2022-0 Yes [id number] 25mg Take 1 Univers e 25 mg 6-18 tablet by ity of tablet 00:00: mouth [place] 00 every 6 Medical (six) Branch hours as needed for Nausea and Vomiting (N/V). proMETHazin 2022-0 Yes [id number] 25mg Take 1 Univers e 25 mg 6-18 tablet by ity of tablet 00:00: mouth [place] 00 every 6 Medical (six) Branch hours as needed for Nausea and Vomiting (N/V). proMETHazin 2022-0 Yes [id number] 25mg Take 1 Univers e 25 mg 6-18 tablet by ity of tablet 00:00: mouth [place] 00 every 6 Medical (six) Branch hours as needed for Nausea and Vomiting (N/V). cefdinir 2022-2022- No [id number] 300mg Take 1 U nivers 300 mg 12-16 capsule by ity of capsule 00:00: 04:59 mouth in [place] 00 :00 the Medical morning Branch and 1 capsule in the evening. Do all this for 7 days. iopamidol 2022-2022- No [id number] 100mL 100 mL, Univers (ISOVUE 11-21 Intravenou ity o f 370-500 mL) 06:30: 05:32 s, ONCE, 1 [place] injection 00 :00 dose, On Medica l 100 mL Wed Branch 11/21/22 at 0130, Routine FENTanyl PF 2022- No 50ug 50 mcg, Un spring (SUBLIMAZE 11-21 Slow IV ity o f (PF)) 05:45: 05:12 Push, [place] injection 00 :00 ONCE, 1 Medical 50 mcg dose, On Branch Sat11/21/22 at 0045, Routine FENTanyl PF 2022-0 2022- No 50ug 50 mcg, Un spring (SUBLIMAZE 11-21 Slow IV ity o f (PF)) 04:30: 03:41 Push, [place] injection 00 :00 ONCE, 1 Medical 50 mcg dose, On Branch Sat11/20/22 at 2330, Routine NaCl 0.9% 2022- No 1000mL at 999 Uni vers (NS) bolus 11-21 mL/hr, ity of infusion 04:30: 05:11 1,000 mL, [place] 1,000 mL 00 :00 IV Medical Infusion, Branch ONCE, 1 dose, On Sat11/20/22 at 2330, JOSE proMETHazin 2022- No 12.5mg 12.5 mg, Univers e 11-21 IV ity of (PHENERGAN) 03:45: 03:41 Piggyback, [place] 12.5 mg in 00 :00 ONCE, 1 Medica l NaCl 0.9% dose, On Branch (NS) 50 mL Tue IV 11/20/22 at piggyback 2245, JOSE FENTanyl PF 2022-0 2022- No 75ug 75 mcg, Un spring (SUBLIMAZE 10-26 Slow IV ity o f (PF)) 05:15: 05:20 Push, [place] injection 00 :00 ONCE, 1 Medical 75 mcg dose, On Branch Sat10/26/22 at 0015, STAT NaCl 0.9% 0 2022- No 1000mL at 999 Uni vers [...] 10/03/22 Branch at 0100, JOSE FENTanyl PF No 50ug 50 mcg, Un spring (SUBLIMAZE 10-03 Slow IV ity o f (PF)) 04:45: 05:42 Push, [place] injection 00 :00 ONCE, 1 Medical 50 mcg dose, On Branch 10/02/22 at 2345, JOSE ondansetron 2021-07- No [id number] 8mg Univers (ZOFRAN-ODT 08-15 ity of ) 00:45: 23:45 [place] disintegrat 00 :00 Medical ing tablet Branch 8 mg ondansetron 2021-07- No [id number] 8mg 8 mg, Univers (ZOFRAN-ODT 08-15 Oral, ity of ) 00:45: 23:45 ONCE, 1 [place] disintegrat 00 :00 dose, On Medi felipa ing tablet Wed Branch 8 mg 06/13/22 at 1845, Routine benzonatate 2021-07 Yes [id number] 200mg Take 2 Univers 100 mg 2-14 capsules ity of capsule 00:00: by mouth [place] 00 every 8 Medical (eight) Branch hours as needed for Cough. ondansetron 2021-07 Yes [id number] 4mg Take 1 Univers 4 mg 2-14 tablet by ity of disintegrat 00:00: mouth [place] ing tablet 00 every 8 Medica l (eight) Branch hours as needed for Nausea and Vomiting (N/V). nirmatrelvi 2021-07 Yes [id number] 3{tbl} Take 3 Univers r-ritonavir 2-14 tablets by it y of (PAXLOVID, 00:00: mouth in [place] EUA,) 300 00 the Medical mg (150 mg morning Branch x 2)-100 mg and 3 tablet tablets in the evening. ondansetron 2021-07 Yes [id number] 4mg Take 1 Univers 4 mg 2-14 tablet by ity of disintegrat 00:00: mouth [place] ing tablet 00 every 8 Medica l (eight) Branch hours as needed for Nausea and Vomiting (N/V). nirmatrelvi 2021-07 Yes [id number] 3{tbl} Take 3 Univers r-ritonavir 2-14 tablets by it y of (PAXLOVID, 00:00: mouth in [place] EUA,) 300 00 the Medical mg (150 mg morning Branch x 2)-100 mg and 3 tablet tablets in the evening. promethazin 2021-07 Yes [id number] 5mL Take 5 mL Univers e-dextromet 2-14 by mouth 4 it y of horphan 00:00: (four) [place] 6.25-15 00 times Medical mg/5 mL daily as Branch syrup needed for Cough. ondansetron 2021-07 Yes [id number] 4mg Take 1 Univers 4 mg 2-14 tablet by ity of disintegrat 00:00: mouth [place] ing tablet 00 every 8 Medica l (eight) Branch hours as needed for Nausea and Vomiting (N/V). nirmatrelvi 2021-07 Yes [id number] 3{tbl} Take 3 Univers r-ritonavir 2-14 tablets by it y of (PAXLOVID, 00:00: mouth in [place] EUA,) 300 00 the Medical mg (150 mg morning Branch x 2)-100 mg and 3 tablet tablets in the evening. promethazin 2021-07 Yes [id number] 5mL Take 5 mL Univers e-dextromet 2-14 by mouth 4 it y of horphan 00:00: (four) [place] 6.25-15 00 times Medical mg/5 mL daily as Branch syrup needed for Cough. ondansetron 2021-07 Yes [id number] 4mg Take 1 Univers 4 mg 2-14 tablet by ity of disintegrat 00:00: mouth [place] ing tablet 00 every 8 Medica l (eight) Branch hours as needed for Nausea and Vomiting (N/V). nirmatrelvi 2021-07 Yes [id number] 3{tbl} Take 3 Univers r-ritonavir 2-14 tablets by it y of (PAXLOVID, 00:00: mouth in [place] EUA,) 300 00 the Medical mg (150 mg morning Branch x 2)-100 mg and 3 tablet tablets in the evening. promethazin 2021-07 Yes [id number] 5mL Take 5 mL Univers e-dextromet 2-14 by mouth 4 it y of horphan 00:00: (four) [place] 6.25-15 00 times Medical mg/5 mL daily as Branch syrup needed for Cough. ondansetron 2021-07 Yes [id number] 4mg Take 1 Univers 4 mg 2-14 tablet by ity of disintegrat 00:00: mouth [place] ing tablet 00 every 8 Medica l (eight) Branch hours as needed for Nausea and Vomiting (N/V). nirmatrelvi 2021-07 Yes [id number] 3{tbl} Take 3 Univers r-ritonavir 2-14 tablets by it y of (PAXLOVID, 00:00: mouth in [place] EUA,) 300 00 the Medical mg (150 mg morning Branch x 2)-100 mg and 3 tablet tablets in the evening. promethazin 2021-07 Yes [id number] 5mL Take 5 mL Univers e-dextromet 2-14 by mouth 4 it y of horphan 00:00: (four) [place] 6.25-15 00 times Medical mg/5 mL daily as Branch syrup needed for Cough. ondansetron 2021-07 Yes [id number] 4mg Take 1 Univers 4 mg 2-14 tablet by ity of disintegrat 00:00: mouth [place] ing tablet 00 every 8 Medica l (eight) Branch hours as needed for Nausea and Vomiting (N/V). nirmatrelvi 2021-07 Yes [id number] 3{tbl} Take 3 Univers r-ritonavir 2-14 tablets by it y of (PAXLOVID, 00:00: mouth in [place] EUA,) 300 00 the Medical mg (150 mg morning Branch x 2)-100 mg and 3 tablet tablets in the evening. promethazin 2021-07 Yes [id number] 5mL Take 5 mL Univers e-dextromet 2-14 by mouth 4 it y of horphan 00:00: (four) [place] 6.25-15 00 times Medical mg/5 mL daily as Branch syrup needed for Cough. ondansetron 2021-07 Yes [id number] 4mg Take 1 Univers 4 mg 2-14 tablet by ity of disintegrat 00:00: mouth [place] ing tablet 00 every 8 Medica l (eight) Branch hours as needed for Nausea and Vomiting (N/V). nirmatrelvi 2021-07 Yes [id number] 3{tbl} Take 3 Univers r-ritonavir 2-14 tablets by it y of (PAXLOVID, 00:00: mouth in [place] EUA,) 300 00 the Medical mg (150 mg morning Branch x 2)-100 mg and 3 tablet tablets in the evening. promethazin 2021-07 Yes [id number] 5mL Take 5 mL Univers e-dextromet 2-14 by mouth 4 it y of horphan 00:00: (four) [place] 6.25-15 00 times Medical mg/5 mL daily as Branch syrup needed for Cough. ondansetron 2021-07 Yes [id number] 4mg Take 1 Univers 4 mg 2-14 tablet by ity of disintegrat 00:00: mouth [place] ing tablet 00 every 8 Medica l (eight) Branch hours as needed for Nausea and Vomiting (N/V). nirmatrelvi 2021-07 Yes [id number] 3{tbl} Take 3 Univers r-ritonavir 2-14 tablets by it y of (PAXLOVID, 00:00: mouth in [place] EUA,) 300 00 the Medical mg (150 mg morning Branch x 2)-100 mg and 3 tablet tablets in the evening. promethazin 2021-07 Yes [id number] 5mL Take 5 mL Univers e-dextromet 2-14 by mouth 4 it y of horphan 00:00: (four) [place] 6.25-15 00 times Medical mg/5 mL daily as Branch syrup needed for Cough. ondansetron 2021-07 Yes [id number] 4mg Take 1 Univers 4 mg 2-14 tablet by ity of disintegrat 00:00: mouth [place] ing tablet 00 every 8 Medica l (eight) Branch hours as needed for Nausea and Vomiting (N/V). nirmatrelvi 2021-07 Yes [id number] 3{tbl} Take 3 Univers r-ritonavir 2-14 tablets by it y of (PAXLOVID, 00:00: mouth in [place] EUA,) 300 00 the Medical mg (150 mg morning Branch x 2)-100 mg and 3 tablet tablets in the evening. promethazin 2021-07 Yes [id number] 5mL Take 5 mL Univers e-dextromet 2-14 by mouth 4 it y of horphan 00:00: (four) [place] 6.25-15 00 times Medical mg/5 mL daily as Branch syrup needed for Cough. nirmatrelvi 2021-07- No [id number] 3{tbl} Take 3 Univers r-ritonavir 2-14 12-14 tablets by i ty of (PAXLOVID, 00:00: 00:00 mouth in [place] EUA,) 300 00 :00 the Medical mg (150 mg morning Branch x 2)-100 mg and 3 tablet tablets in the evening. benzonatate 2021-07- No [id number] 200mg Take 2 Univers 100 mg 2-14 [...] n: Perioperat kieran Patient tamsulosin 2021-07 Yes [id number] .4mg Take 1 U nivers 0.4 mg 24 07-07 capsule by ity of hr capsule 00:00: mouth at [place] 00 bedtime. Medical Branch tamsulosin 2021-07- No [id number] .4mg Take 1 Univers 0.4 mg 24 [...] 00 :00 dose, On Medi felipa mg [facility] Branch 02/19/22 at 0930, JOSE methylPREDN 0 Yes [id number] Take by [facility] [place] [facility] ISolSafe Shepherd 11-29 mouth ity of (MEDROL, 00:00: SEE-INSTRU [place] TE,) 4 mg 00 CTIONS. Medica l tablets follow Branch package directions methylPREDN 0 Yes [id number] Take by [facility] [place] [facility] ISolone 11-29 mouth ity of (MEDROL, 00:00: SEE-INSTRU [place] TE,) 4 mg 00 CTIONS. Medica l tablets follow Branch package directions methylPREDN 2021-0 Yes [id number] Take by [employer] ISolone 11-29 mouth ity of (MEDROL, 00:00: SEE-INSTRU [place] TE,) 4 mg 00 CTIONS. Medica l tablets follow Branch package directions methylPREDN 0 2021- No [id number] Take by [employer] ISolone 11-29 12-14 mouth ity of (MEDROL, 00:00: 00:00 [place]-INSTRU [place] TE,) 4 mg 00 :00 CTIONS. Medica l tablets follow Branch package directions amoxicillin 2021- No [id number] 1{tbl} Take 1 Univers -clavulanat 11-29 tablet by it y of e [id number] 00:00: 04:59 mouth 2 [place] mg per 00 :00 (two) Medical tablet times Branch daily for 7 days. codeine-gua 0 2021- No [id number] 5mL Take 5 mL Univers ifenesin 11-29 by mouth ity of 10-100 mg/5 00:00: 04:59 every 6 [place] mL oral 00 :00 (six) Medical solution hours as Branch needed for Cough for up to 7 days. Indication s: acute pain estrogens, 0 Yes Take by Univ ers [...] ORAL) 44 Medical Branch naproxen 2021-0 Yes [id number] 500mg Take 1 U nivers (NAPROSYN) 2-02 tablet by ity of 500 mg 00:00: mouth 2 [place] tablet 00 (two) Medical times Branch daily with meals. naproxen 2022-0 Yes [id number] 500mg Take 1 U nivers (NAPROSYN) 2-02 tablet by ity of 500 mg 00:00: mouth 2 [place] tablet 00 (two) Medical times Branch daily with meals. naproxen 2022-0 Yes [id number] 500mg Take 1 U nivers (NAPROSYN) 2-02 tablet by ity of 500 mg 00:00: mouth 2 [place] tablet 00 (two) Medical times Branch daily with meals. naproxen 2022-0 Yes [id number] 500mg Take 1 U nivers (NAPROSYN) 2-02 tablet by ity of 500 mg 00:00: mouth 2 [place] tablet 00 (two) Medical times Branch daily with meals. naproxen 2022-0 Yes [id number] 500mg Take 1 U nivers (NAPROSYN) 2-02 tablet by ity of 500 mg 00:00: mouth 2 [place] tablet 00 (two) Medical times Branch daily with meals. naproxen 2-0 Yes [id number] 500mg Take 1 U nivers (NAPROSYN) 2-02 tablet by ity of 500 mg 00:00: mouth 2 [place] tablet 00 (two) Medical times Branch daily with meals. naproxen 2022-0 Yes [id number] 500mg Take 1 U nivers (NAPROSYN) 2-02 tablet by ity of 500 mg 00:00: mouth 2 [place] tablet 00 (two) Medical times Branch daily with meals. naproxen 2022-0 Yes [id number] 500mg Take 1 U nivers (NAPROSYN) 2-02 tablet by ity of 500 mg 00:00: mouth 2 [place] tablet 00 (two) Medical times Branch daily with meals. naproxen 2-0 Yes [id number] 500mg Take 1 U nivers (NAPROSYN) 2-02 tablet by ity of 500 mg 00:00: mouth 2 [place] tablet 00 (two) Medical times Branch daily with meals. naproxen 2022-0 Yes [id number] 500mg Take 1 U nivers (NAPROSYN) 2-02 tablet by ity of 500 mg 00:00: mouth 2 [place] tablet 00 (two) Medical times Branch daily with meals. naproxen 2022-0 Yes [id number] 500mg Take 1 U nivers (NAPROSYN) 2-02 tablet by ity of 500 mg 00:00: mouth 2 [place] tablet 00 (two) Medical times Branch daily with meals. naproxen 2021-0 Yes [id number] 500mg Take 1 U nivers (NAPROSYN) 2-02 tablet by ity of 500 mg 00:00: mouth 2 [place] tablet 00 (two) Medical times Branch daily with meals. naproxen 2021-0 Yes [id number] 500mg Take 1 U nivers (NAPROSYN) 2-02 tablet by ity of 500 mg 00:00: mouth 2 [place] tablet 00 (two) Medical times Branch daily with meals. albuterol 2020-07 Yes [id number] 2{puff} Inhale 2 Univers 90 2-22 Puffs [...] Cough. Indication s: cough albuterol 2020-07 Yes [id number] 2{puff} Inhale 2 Univers 90 2-22 Puffs [...] Cough. Indication s: cough albuterol 2020-07 Yes [id number] 2{puff} Inhale 2 Univers 90 2-22 Puffs [...] Cough. Indication s: cough albuterol 2020-07 Yes [id number] 2{puff} Inhale 2 Univers 90 2-22 Puffs [...] Cough. Indication s: cough albuterol 2020-07 Yes [id number] 2{puff} Inhale 2 Univers 90 2-22 Puffs ity of mcg/actuati 00:00: every 6 [place] as on inhaler 00 (six) Medical hours as Branch needed for Wheezing or Bronchospa sm. albuterol 2020-07 Yes [id number] 2{puff} Inhale 2 Univers 90 2-22 Puffs ity of mcg/actuati 00:00: every 6 [place] on inhaler 00 (six) Medical hours as Branch needed for Wheezing or Bronchospa sm. albuterol 2020-07 Yes [id number] 2{puff} Inhale 2 Univers 90 2-22 Puffs ity of mcg/actuati 00:00: every 6 [place] on inhaler 00 (six) Medical hours as Branch needed for Wheezing or Bronchospa sm. albuterol 2020-07 Yes [id number] 2{puff} Inhale 2 Univers 90 2-22 Puffs ity of mcg/actuati 00:00: every 6 [place] on inhaler 00 (six) Medical hours as Branch needed for Wheezing or Bronchospa sm. albuterol 2020-07 Yes [id number] 2{puff} Inhale 2 Univers 90 2-22 Puffs ity of mcg/actuati 00:00: every 6 [place] on inhaler 00 (six) Medical hours as Branch needed for Wheezing or Bronchospa sm. albuterol 2020-07 Yes [id number] 2{puff} Inhale 2 Univers 90 2-22 Puffs ity of mcg/actuati 00:00: every 6 [place] on inhaler 00 (six) Medical hours as Branch needed for Wheezing or Bronchospa sm. albuterol 2020-07 Yes [id number] 2{puff} Inhale 2 Univers 90 2-22 Puffs ity of mcg/actuati 00:00: every 6 [place] on inhaler 00 (six) Medical hours as Branch needed for Wheezing or Bronchospa sm. albuterol 2020-07 Yes [id number] 2{puff} Inhale 2 Univers 90 2-22 Puffs ity of mcg/actuati 00:00: every 6 [place] on inhaler 00 (six) Medical hours as Branch needed for Wheezing or Bronchospa sm. albuterol 2020-07 Yes [id number] 2{puff} Inhale 2 Univers 90 2-22 Puffs [...] [place] 00 EVERY DAY Medical IN THE [place] MORNING ON AN EMPTY STOMACH levothyroxi 2020-07 Yes TAKE 1 Univ ers ne 137 mcg 2-16 TABLET BY ity of tablet 00:00: MOUTH [place] 00 EVERY DAY Medical IN THE [place] MORNING ON AN EMPTY STOMACH levothyroxi 2020-07 Yes TAKE 1 Univ ers ne 137 mcg 2-16 TABLET BY ity of tablet 00:00: MOUTH [place] 00 EVERY DAY Medical IN THE [place] MORNING ON AN EMPTY STOMACH levothyroxi 2020-07 Yes TAKE 1 Univ ers ne 137 mcg 2-16 TABLET BY ity of tablet 00:00: MOUTH [place] 00 EVERY DAY Medical IN THE Branch MORNING ON AN EMPTY STOMACH levothyroxi 2020-07 Yes TAKE 1 Univ ers ne 137 mcg 2-16 TABLET BY ity of tablet 00:00: MOUTH [place] 00 EVERY DAY Medical IN THE [place] MORNING ON AN EMPTY STOMACH levothyroxi 2020-07 Yes TAKE 1 Univ ers ne 137 mcg 2-16 TABLET BY ity of tablet 00:00: MOUTH [place] 00 EVERY DAY Medical IN THE [place] MORNING ON AN EMPTY STOMACH levothyroxi 2020-07 Yes TAKE 1 Univ ers ne 137 mcg 2-16 TABLET BY ity of tablet 00:00: MOUTH [place] 00 EVERY DAY Medical IN THE [place] MORNING ON AN EMPTY STOMACH levothyroxi 2020-07 Yes TAKE 1 Univ ers ne 137 mcg 2-16 TABLET BY ity of tablet 00:00: MOUTH [place] 00 EVERY DAY Medical IN THE [place] MORNING ON AN EMPTY STOMACH levothyroxi 2020-07 Yes TAKE 1 Univ ers ne 137 mcg 2-16 TABLET BY ity of tablet 00:00: MOUTH [place] 00 EVERY DAY Medical IN THE [place] MORNING ON AN EMPTY STOMACH levothyroxi 2020-07 Yes TAKE 1 Univ ers ne 137 mcg 2-16 TABLET BY ity of tablet 00:00: MOUTH [place] 00 EVERY DAY Medical IN THE [place] MORNING ON AN EMPTY STOMACH levothyroxi 2020-07 Yes TAKE 1 Univ ers ne 137 mcg 2-16 TABLET BY ity of tablet 00:00: MOUTH [place] 00 EVERY DAY Medical IN THE [place] MORNING ON AN EMPTY STOMACH levothyroxi 2020-07 Yes TAKE 1 Univ ers ne 137 mcg 2-16 TABLET BY ity of tablet 00:00: MOUTH [place] 00 EVERY DAY Medical IN THE [place] MORNING ON AN EMPTY STOMACH levothyroxi 2020-07 Yes TAKE 1 Univ ers ne 137 mcg 2-16 TABLET BY ity of tablet 00:00: MOUTH [place] 00 EVERY DAY Medical IN THE [place] MORNING ON AN EMPTY STOMACH acetaminoph acetaminoph [...] 0-23 [facility] 00:00: - [facility] 00 [facility] Premarin Premarin 2018-07 No 1{table QD Premarin 1.25 MG 1.25 MG 0-23 t} 1.25 MG 00:00: 00 estrogens, 2018-07 Yes Take by Univ ers conjugated 0-23 mouth ity of (PREMARIN 00:00: daily. [place] ORAL) 00 MD Gian payton [facility] estrogens, 2018-07 Yes Take by Univ ers conjugated 0-23 mouth ity of (PREMARIN 00:00: daily. [place] ORAL) 00 MD [place] payton [facility] estrogens, 2018-07 Yes Take by Univ ers conjugated 0-23 mouth ity of (PREMARIN 00:00: daily. [place] ORAL) 00 MD Gian payton [facility] estrogens, 2018-07 Yes Take by Univ ers conjugated 0-23 mouth ity of (PREMARIN 00:00: daily. [place] ORAL) 00 MD Gian payton [facility] estrogens, 2018-07 Yes Take by Univ ers conjugated 0-23 mouth ity of (PREMARIN 00:00: daily. [place] ORAL) 00 MD Gian payton [facility] estrogens, 2018-07 Yes Take by Univ ers conjugated 0-23 mouth ity of (PREMARIN 00:00: daily. [place] ORAL) 00 [facility] estrogens, 2018-07 Yes Take by Univ ers conjugated 0-23 mouth ity of (PREMARIN 00:00: daily. [place] ORAL) 00 MD Gian payton [facility] estrogens, 2018-07 Yes Take by Univ ers conjugated 0-23 mouth ity of (PREMARIN 00:00: daily. [place] ORAL) 00 [facility] estrogens, 2018-07 Yes Take by Univ ers conjugated 0-23 mouth ity of (PREMARIN 00:00: daily. [place] ORAL) 00 MD Gian payton [facility] estrogens, 2018-07 Yes Take by Univ ers conjugated 0-23 mouth ity of (PREMARIN 00:00: daily. [place] ORAL) 00 [facility] estrogens, 2018-07 Yes Take by Univ ers conjugated 0-23 mouth ity of (PREMARIN 00:00: daily. [place] ORAL) 00 MD [facility] estrogens, 2018-07 Yes Take by Univ ers conjugated 0-23 mouth ity of (PREMARIN 00:00: daily. [place] ORAL) 00 MD [facility] estrogens, 2018-07 Yes Take by Univ ers conjugated 0-23 mouth ity of (PREMARIN 00:00: daily. [place] ORAL) 00 MD [facility] estrogens, 2018-07 Yes Take by Univ ers conjugated 0-23 mouth ity of (PREMARIN 00:00: daily. [place] ORAL) 00 MD Chan tata [facility] estrogens, 2018-07 Yes Take by Univ ers conjugated 0-23 mouth ity of (PREMARIN 00:00: daily. [place] ORAL) 00 MD Gian payton [facility] estrogens, 2018-07 Yes Take by Univ ers conjugated 0-23 mouth ity of (PREMARIN 00:00: daily. [place] ORAL) 00 MD [facility] estrogens, 2018-07 Yes Take by Univ ers conjugated 0-23 mouth ity of (PREMARIN 00:00: daily. [place] ORAL) 00 MD Gian payton [facility] estrogens, 2018-07 Yes Take by Univ ers conjugated 0-23 mouth ity of (PREMARIN 00:00: daily. [place] ORAL) 00 MD Gian payton [facility] estrogens, 2018-07 Yes Take by Univ ers conjugated 0-23 mouth ity of (PREMARIN 00:00: daily. [place] ORAL) 00 [facility] tata [facility] estrogens, 2018-07 Yes Take by Univ ers conjugated 0-23 mouth ity of (PREMARIN 00:00: daily. [place] ORAL) 00 [facility] estrogens, 2018-07 Yes Take by Univ ers conjugated 0-23 mouth ity of (PREMARIN 00:00: daily. [place] ORAL) 00 [facility] tata [facility] estrogens, 2018-07 Yes Take by Univ ers conjugated 0-23 mouth ity of (PREMARIN 00:00: daily. [place] ORAL) 00 MD [facility] estrogens, 2018-07 Yes Take by Univ ers conjugated 0-23 mouth ity of (PREMARIN 00:00: daily. [place] ORAL) 00 [facility] tata [facility] estrogens, 2018-07 Yes Take by Univ ers conjugated 0-23 mouth ity of (PREMARIN 00:00: daily. [place] ORAL) 00 [facility] tata [facility] estrogens, 2018-07 Yes Take by Univ ers conjugated 0-23 mouth ity of (PREMARIN 00:00: daily. [place] ORAL) 00 [facility] Estradiol Estradiol 2018-07 Yes Kaywin 1 tablet Common 0-01 [facility]: [facility] 00 [facility] citalopram 0 Yes Univers (CeleXA) 40 9-10 ity of mg tablet 00:00: 00 [facility] 2017-0 Yes Univers (CeleXA) 40 9-10 ity of mg tablet 00:00: MD Gian payton [facility] citalopram 2017-0 Yes Univers (CeleXA) 40 9-10 ity of mg tablet 00:00: MD Gian payton [facility] citalopram 2017-0 Yes Univers (CeleXA) 40 9-10 ity of mg tablet 00:00: [place] MD Gian payton [facility] citalopram 2017-0 Yes Univers (CeleXA) 40 9-10 ity of mg tablet 00:00: MD Gian payton [facility] citalopram 2017-0 Yes Univers (CeleXA) 40 9-10 ity of mg tablet 00:00: [place] [facility] 0 Yes Univers (CeleXA) 40 9-10 ity of mg tablet [facility] 2017-0 Yes Univers (CeleXA) 40 9-10 ity of mg tablet 00:00: [facility] tata [facility] 0 Yes Univers (CeleXA) 40 9-10 ity of mg tablet 00:00: [facility] citalopra 0 Yes Univers (CeleXA) 40 9-10 ity of mg tablet 00:00: [facility] Yes Univers (CeleXA) 40 9-10 ity of mg tablet 00:00: [facility] 0 Yes Univers (CeleXA) 40 9-10 ity of mg tablet 00:00: [facility] 0 Yes Univers (CeleXA) 40 9-10 ity of mg tablet 00:00: [facility] 0 Yes Univers (CeleXA) 40 9-10 ity of mg tablet 00:00: [facility] citalopra 0 Yes Univers (CeleXA) 40 9-10 ity of mg tablet 00:00: [facility] 0 Yes Univers (CeleXA) 40 9-10 ity of mg tablet 00:00: [place] MD Gian payton [facility] citalopra [id number] Yes Univers (CeleXA) 40 9-10 ity of mg tablet 00:00: [facility] [address] Yes Univers (CeleXA) 40 9-10 ity of mg tablet 00:00: MD [facility] [address] Yes Univers (CeleXA) 40 9-10 ity of mg tablet 00:00: MD Gian payton [facility] 0 Yes Univers (CeleXA) 40 9-10 ity of mg tablet 00:00: [facility] citalopram 0 Yes Univers (CeleXA) 40 9-10 ity of mg tablet 00:00: MD Gian payton [facility] citalopram 0 Yes Univers (CeleXA) 40 9-10 ity of mg tablet 00:00: MD Gian [facility] citalopram 0 Yes Univers (CeleXA) 40 9-10 ity of mg tablet 00:00: MD Gian payton [facility] citalopram 0 Yes Univers (CeleXA) 40 9-10 ity of mg tablet 00:00: MD Gian payton [facility] citalopram Yes Univers (CeleXA) 40 9-10 ity of mg tablet 00:00: MD Gian payton [facility] levothyroxi 0 Yes Univer s ne 175 mcg 8-10 ity of cap 00:00: MD Gian [facility] levothyroxi 0 Yes Univer s ne 175 [...] [facility] levothyroxi 2010-0 Yes Univharitha [place] 175 mcg 8-10 ity of cap [...] [facility] levothyroxi 2010-0 Yes Univer luc ne 175 mcg 8-10 ity of cap [...] cap 00:00: [place] 00 MD Gian payton [facility] levothyroxi 2010-0 Yes Univer s ne 175 mcg 8-10 ity of cap 00:00: [place] 00 MD Gian payton [facility] zolpidem 2006-0 Yes Univers (AMBIEN) 10 07-01 ity of mg tablet 00:00: [place] 00 MD Gian payton [facility] zolpidem 2006-0 Yes Univers (AMBIEN) 10 07-01 ity of mg tablet 00:00: [place] [facility] zolpidem 2006-0 Yes Univers (AMBIEN) 10 07-01 ity of mg tablet 00:00: [place] [facility] zolpidem 2006-0 Yes Univers (AMBIEN) 10 07-01 ity of mg tablet 00:00: [place] 00 MD Gian payton [facility] zolpidem 2006-0 Yes Univers (AMBIEN) 10 07-01 ity of mg tablet 00:00: [place] 00 MD Gian payton [facility] zolpidem 2006-0 Yes Univers (AMBIEN) 10 07-01 ity of mg tablet 00:00: [place] [facility] zolpidem 2006-0 Yes Univers (AMBIEN) 10 07-01 ity of mg tablet 00:00: [place] 00 MD Gian payton [facility] zolpidem 2006-0 Yes Univers (AMBIEN) 10 07-01 ity of mg tablet 00:00: [place] 00 MD Gian payton [facility] zolpidem 2006-0 Yes Univers (AMBIEN) 10 07-01 ity of mg tablet 00:00: [place] 00 MD Gian payton [facility] zolpidem 2006-0 Yes Univers (AMBIEN) 10 07-01 ity of mg tablet 00:00: [place] 00 MD Gian payton [facility] zolpidem 2006-0 Yes Univers (AMBIEN) 10 07-01 ity of mg tablet 00:00: [place] 00 MD Gian [facility] zolpidem 2006-0 Yes Univers (AMBIEN) 10 07-01 ity of mg tablet 00:00: [place] 00 MD Gian payton [facility] zolpidem 2007-0 Yes Univers (AMBIEN) 10 07-01 ity of mg tablet 00:00: [place] 00 MD Gian paytno [facility] zolpidem 2007-0 Yes Univers (AMBIEN) 10 07-01 ity of mg tablet 00:00: 00 [facility] zolpidem 2006-0 Yes Univers (AMBIEN) 10 07-01 ity of mg tablet 00:00: 00 [facility] zolpide 2006-0 Yes Univers (AMBIEN) 10 07-01 ity of mg tablet 00:00: 00 [facility] zolpidem 2006-0 Yes Univers (AMBIEN) 10 07-01 ity of mg tablet 00:[facility]: [facility] zolpide 2006-0 Yes Univers (AMBIEN) 10 07-01 ity of mg tablet 00:00: 00 [facility] zolpide 2006-0 Yes Univers (AMBIEN) 10 07-01 ity of mg tablet 00:00: 00 [facility] zolpide 2006-0 Yes Univers (AMBIEN) 10 07-01 ity of mg tablet 00:00: 00 [facility] tata [facility] zolpide 2006-0 Yes Univers (AMBIEN) 10 07-01 ity of mg tablet 00:00: 00 [facility] zolpide 2006-0 Yes Univers (AMBIEN) 07-01 ity of mg tablet 00:00: [place] [facility] zolpide 2006-0 Yes Univers (AMBIEN) 07-01 ity of mg tablet 00:00: 00 MD Gian payton [facility] zolpide 2006-0 Yes Univers (AMBIEN) 10 07-01 ity of mg tablet 00:00: [place] [facility] zolpidem 2006-0 Yes Univers (AMBIEN) 10 07-01 ity of mg tablet 00:00: 00 [facility] acetaminoph acetaminoph Yes [address] [facility] [...] [facility] conjugated conjugated Gutierrez es (HALF-WAY) 1.25 (HALF-WAY) 1.25 Mem oria MG Oral MG Oral [...] [facility] conjugated conjugated daily Olamide kes (HALF-WAY) 1.25 (HALF-WAY) 1.25 Mem oria MG Oral MG Oral [...] [facility] conjugated conjugated Gutierrez es (HALF-WAY) 1.25 (HALF-WAY) 1.25 Mem oria MG Oral MG Oral [...] [facility] conjugated conjugated daily Olamide kes (HALF-WAY) 1.25 (HALF-WAY) 1.25 Mem oria MG Oral MG Oral [...] [facility] conjugated conjugated Gutierrez es (HALF-WAY) 1.25 (HALF-WAY) 1.25 Mem oria MG Oral MG Oral [...] [facility] conjugated conjugated daily Olamide kes (HALF-WAY) 1.25 (HALF-WAY) 1.25 Mem oria MG Oral MG Oral l Tablet Tablet (LUF/LI V/SA) levothyroxi levothyroxi Yes 150ug 1xD orally [facility] (LUF/LI V/SA) Celexa Celexa Yes Kaywin 1 tablet Commo n [facility] Levothyroxi Levothyroxi Yes Kaywin 1 tablet Common ne Sodium ne Sodium [facility] on an Sp karla empty - [facility] stomach in [facility] Estradiol Estradiol Yes Kaywin 1 patch to Common [facility] Promethazin Promethazin No 1{table Promethazi e HCl 25 mg e HCl 25 mg t_as_ne ne HCl 25 eded} mg Estradiol Estradiol No 1{patch Estradiol 0.1 MG/24HR 0.1 MG/24HR _to_ski 0.1 n} MG/24HR Celexa 40 Celexa 40 No 1{table QD Celexa 40 MG MG t} MG [place] No 1{table QID [place] 7.5-325 MG 7.5-325 MG t_as_ne 7.5-325 MG [...] Sodium 150 MCG 150 MCG 150 MCG [place] No 1{table QID [place] 7.5-325 MG 7.5-325 MG t_as_ne 7.5-325 MG eded} Promethazin Promethazin No 1{table Promethazi e HCl 25 mg e HCl 25 mg t_as_ne ne HCl 25 eded} mg Estradiol Estradiol No 1{patch Estradiol 0.1 MG/24HR 0.1 MG/24HR _to_ski 0.1 n} MG/24HR Premarin Premarin No 1{table QD Premarin 1.25 MG 1.25 MG t} 1.25 MG [place] No 1{table QID [place] 7.5-325 MG 7.5-325 MG t_as_ne 7.5-325 MG [...] 1.25 MG 1.25 MG t} 1.25 MG [place] No 1{table QID [place] 7.5-325 MG 7.5-325 MG t_as_ne 7.5-325 MG [...] Influenza, 2011-03-30 Completed University of Unspecified 00:00:00 [facility] [place] Tdap 2011-03-30 Completed [facility] 00:00:00 [facility] Influenza, 2011-03-30 Completed [facility] Unspecified 00:00:00 [facility] Tdap 2011-03-30 Completed [facility] of 00:00:00 [facility] Influenza, 2011-03-30 Completed University of Unspecified 00:00:00 [facility] Tdap 2011-03-30 Completed University of 00:00:00 [facility] Influenza, 2011-03-30 Completed University of Unspecified 00:00:00 [facility] Tdap 2011-03-30 Completed University of 00:00:00 [facility] Influenza, 2011-03-30 Completed University of Unspecified 00:00:00 [facility] Tdap 2011-03-30 Completed University of 00:00:00 [facility] Center Influenza, 2011-03-30 Completed University of Unspecified 00:00:00 [facility] Tdap 2011-03-30 Completed University of 00:00:00 [facility] Influenza, 2011-03-30 Completed University of Unspecified 00:00:00 [facility] Tdap 2011-03-30 Completed University of 00:00:00 [facility] Influenza, 2011-03-30 Completed University of Unspecified 00:00:00 [facility] Tdap 2011-03-30 Completed University of 00:00:00 [facility] Influenza, 2011-03-30 Completed University of Unspecified 00:00:00 [facility] Tdap 2011-03-30 Completed University of 00:00:00 [facility] Influenza, 2011-03-30 Completed University of Unspecified 00:00:00 [facility] Tdap 2011-03-30 Completed University of 00:00:00 [facility] Influenza, 2011-03-30 Completed University of Unspecified 00:00:00 [facility] Tdap 2011-03-30 Completed University of 00:00:00 [facility] Influenza, 2011-03-30 Completed University of Unspecified 00:00:00 [facility] Tdap 2011-03-30 Completed University of 00:00:00 [facility] Influenza, 2011-03-30 Completed University of Unspecified 00:00:00 [facility] Tdap 2011-03-30 Completed University of 00:00:00 [facility] Influenza, 2011-03-30 Completed University of Unspecified 00:00:00 [facility] Tdap 2011-03-30 Completed University of 00:00:00 [facility] Influenza, 2011-03-30 Completed University of Unspecified 00:00:00 [facility] Tdap 2011-03-30 Completed University of 00:00:00 [facility] Influenza, 2011-03-30 Completed University of Unspecified 00:00:00 [facility] Tdap 2011-03-30 Completed University of 00:00:00 [facility] Influenza, 2011-03-30 Completed University of Unspecified 00:00:00 [facility] Tdap 2011-03-30 Completed University of 00:00:00 [facility] [place] Influenza, 2011-03-30 Completed University of Unspecified 00:00:00 [facility] Tdap 2011-03-30 Completed University of 00:00:00 [facility] [place] Influenza, 2011-03-30 Completed University of Unspecified 00:00:00 [facility] Tdap 2011-03-30 Completed University of 00:00:00 [facility] [place] Influenza, 2011-03-30 Completed University of Unspecified 00:00:00 [facility] Tdap 2011-03-30 Completed University of 00:00:00 [facility] [place] Influenza, 2011-03-30 Completed University of Unspecified 00:00:00 [facility] Tdap 2011-03-30 Completed University of 00:00:00 [facility] [place] Influenza, 2011-03-30 Completed University of Unspecified 00:00:00 [facility] Tdap 2011-03-30 Completed University of 00:00:00 [facility] [place] Influenza (IM) 2009-04-05 Completed University of Preservative Free 00:00:00 [facility] [place] Influenza (IM) 2009-04-05 Completed University of Preservative Free 00:00:00 [facility] Center Influenza (IM) 2009-04-05 Completed University of Preservative Free 00:00:00 [facility] [place] Influenza (IM) 2009-04-05 Completed University of Preservative Free 00:00:00 [facility] [place] Influenza (IM) 2009-04-05 Completed University of Preservative Free 00:00:00 [place] [facility] Influ[facility] (IM[facility] 2009-04-05 Completed University of Preservative Free 00:00:00 [place] Zoltan Ayoub [facility] Influenza (IM) 2009-04-05 Completed University of Preservative Free 00:00:00 [place] Zoltan Ayoub [facility] Influenza (IM) 2009-04-05 Completed University of Preservative Free 00:00:00 [place] Zoltan Ayoub [facility] Influenza (IM) 2009-04-05 Completed University of Preservative Free 00:00:00 [place] [facility] Influenza (IM) 2009-04-05 Completed University of Preservative Free 00:00:00 [place] Zoltan Ayoub [facility] Influenza (IM) 2009-04-05 Completed University of Preservative Free 00:00:00 [place] [facility] Influenza (IM) 2009-04-05 Completed University of Preservative Free 00:00:00 [place] [facility] Influenza (IM) 2009-04-05 Completed University of Preservative Free 00:00:00 [place] Zoltan Ayoub [facility] Influenza (IM) 2009-04-05 Completed University of Preservative Free 00:00:00 [place] Zoltan Neely Naif Anitra [facility] Influenza (IM) 2009-04-05 Completed University of Preservative Free 00:00:00 [place] Zoltan Ayoub [facility] Influenza (IM) 2009-04-05 Completed University of Preservative Free 00:00:00 [place] Zoltan Ayoub [facility] Influenza (IM) 2009-04-05 Completed University of Preservative Free 00:00:00 [place] Zoltan Ayoub [facility] Influenza (IM) 2009-04-05 Completed University of Preservative Free 00:00:00 [place] Zoltan Neely Naif Anitra [facility] Influenza (IM) 2009-04-05 Completed University of Preservative Free 00:00:00 [place] Zoltan Neely [facility] [place] Influenza (IM) 2009-04-05 Completed University of Preservative Free 00:00:00 [place] [facility]an [facility]ely [facility] Influenza (IM) 2009-04-05 Completed University of Preservative Free 00:00:00 [facility] Influenza (IM) 2009-04-05 Completed University of Preservative Free 00:00:00 [facility] Influenza, Unknown Completed [facility] Influ[facility] ([facility] Unknown Completed [facility] Preservative Free [facility]ance [facility] [place] Tdap Unknown Completed [facility] Influenza, Unknown Completed [facility] Influenza (IM) Unknown Completed [facility] Preservative [facility] Can [facility] [place] Tdap Unknown Completed [facility] Influenza, Unknown Completed [facility] Influenza (IM) Unknown Completed [facility] Preservative [facility] Can [facility] [place] Tdap Unknown Completed [facility] Vital Signs Vital Name Observation Time Observation Value Comments Source Systolic blood 2023-03-19 04:50:00 149 mm[Hg] [facility] Diastolic blood 2023-03-19 04:50:00 102 mm[Hg] [facility] Heart rate 2023-03-19 04:50:00 81 /min [facility] Respiratory rate 2023-03-19 04:50:00 15 /min [facility] Oxygen saturation in 2023-03-19 04:50:00 96 /min [facility] Arterial blood by [facility] Pulse oximetry [place] Body temperature 2023-03-19 04:06:00 37.33 Ericka [facility] Body height 2023-03-19 04:06:00 162.6 cm [facility] Body weight 2023-03-19 04:06:00 104.327 kg [facility] BMI 2023-03-19 04:06:00 39.48 kg/m2 [facility] Height 2023-03-02 23:36:00 162.56 CM Weight 2023-03-02 23:36:00 99.9 KG Systolic blood 2022-12-25 03:40:00 152 mm[Hg] [facility] Diastolic blood 2022-12-25 03:40:00 97 mm[Hg] [facility] Heart rate 2022-12-25 03:40:00 95 /min [facility] [place] [facility] Body temperature 2022-12-25 03:40:00 37.28 Ericka [facility] [place] [facility] Respiratory rate 2022-12-25 03:40:00 18 /min [facility] [place] [facility] Body height 2022-12-25 03:40:00 162.6 cm [facility] [place] [facility] Body weight 2022-12-25 03:40:00 108.863 kg [facility] [place] [facility] BMI 2022-12-25 03:40:00 41.20 kg/m2 [facility] [place] [facility] Oxygen saturation in 2022-12-25 03:40:00 95 /min [facility] of Arterial blood by [place] [facility] Pulse oximetry Branch Systolic blood 2022-12-17 00:00:00 131 mm[Hg] [facility] [place] [facility] Diastolic blood 2022-12-17 00:00:00 88 mm[Hg] Unive [facility] [place] [facility] Heart rate 2022-12-17 00:00:00 69 /min [facility] [place] [facility] Respiratory rate 2022-12-17 00:00:00 15 /min [facility] [place] [facility] Oxygen saturation in 2022-12-17 00:00:00 100 /min [facility] Arterial blood by [place] [facility] Pulse oximetry [facility] Body temperature 2022-12-16 22:02:00 37.28 Ericka [facility] [place] [facility] Systolic blood 2022-11-21 06:43:00 132 mm[Hg] [facility] [place] [facility] Diastolic blood 2022-11-21 06:43:00 74 mm[Hg] [facility]ive [facility] [place] [facility] Heart rate 2022-11-21 06:43:00 76 /min [facility] [place] [facility] Body temperature 2022-11-21 06:43:00 36.22 Ericka [facility] [place] [facility] Oxygen saturation in 2022-11-21 06:43:00 99 /min [facility] of Arterial blood by [place] Medi fel[facility]a Pulse oximetry Branch Respiratory rate 2022-11-21 05:12:00 21 /min [facility] [place] [facility] Body height 2022-11-21 02:40:00 162.6 cm [facility] [place] [facility] Body weight 2022-11-21 02:40:00 104.327 kg [facility] [place] [facility] BMI 2022-11-21 02:40:00 39.48 kg/m2 [facility] [place] [facility] Systolic blood 2022-10-26 05:15:00 119 mm[Hg] [facility]iver [facility]ity of pressure [place] [facility] Branch Diastolic blood 2022-10-26 05:15:00 52 mm[Hg] [facility] Heart rate 2022-10-26 05:15:00 84 /min [facility] Respiratory rate 2022-10-26 05:15:00 22 /min [facility] Oxygen saturation in 2022-10-26 05:15:00 98 /min [facility]ial blood by [place] [facility] Pulse oximetry Branch Body temperature 2022-10-26 03:39:00 37.22 Ericka [facility] Body height 2022-10-26 03:39:00 162.6 cm [facility] Body weight 2022-10-26 03:39:00 113.399 kg [facility] BMI 2022-10-26 03:39:00 42.91 kg/m2 [facility] Systolic blood 2022-10-03 07:08:00 146 mm[Hg] [facility] Diastolic blood 2022-10-03 07:08:00 91 mm[Hg] [facility] Heart rate 2022-10-03 07:08:00 81 /min [facility] Respiratory rate 2022-10-03 07:08:00 16 /min [facility] Oxygen saturation in 2022-10-03 07:08:00 98 /min [facility] blood by [place] [facility] Pulse oximetry Branch Body temperature 2022-10-03 03:31:00 37.22 Ericka [facility] Body height 2022-10-03 03:31:00 162.6 cm [facility] Body weight 2022-10-03 03:31:00 108.863 kg [facility] BMI 2022-10-03 03:31:00 41.20 kg/m2 [facility] Systolic blood 2022-06-13 23:28:00 132 mm[Hg] [facility] Diastolic blood 2022-06-13 23:28:00 83 mm[Hg] [facility] Heart rate 2022-06-13 23:28:00 107 /min [facility] Body temperature 2022-06-13 23:28:00 37.17 Ericka [facility] Respiratory rate 2022-06-13 23:28:00 16 /min [facility] Body height 2022-06-13 23:28:00 162.6 cm [facility] Body weight 2022-06-13 23:28:00 102.15 kg [facility] BMI 2022-06-13 23:28:00 38.66 kg/m2 [facility] Oxygen saturation in 2022-06-13 23:28:00 96 /min [facility] Arterial blood by [facility] Pulse oximetry Branch Systolic blood 2022-05-07 14:46:22 138 mm[Hg] [facility] Diastolic blood 2022-05-07 14:46:22 88 mm[Hg] [facility] Heart rate 2022-05-07 14:46:22 89 /min [facility] Respiratory rate 2022-05-07 14:46:22 20 /min [facility] Oxygen saturation in 2022-05-07 14:46:22 98 /min [facility] Arterial blood by [facility] Pulse oximetry Branch Body temperature 2022-05-07 14:07:33 37 Ericka [facility] Body height 2022-05-07 13:56:00 162.6 cm [facility] Body weight 2022-05-07 13:56:00 108.863 kg [facility] BMI 2022-05-07 13:56:00 41.20 kg/m2 [facility] Systolic blood 2022-02-19 14:13:00 156 mm[Hg] [facility] Diastolic blood 2022-02-19 14:13:00 94 mm[Hg] [facility] Heart rate 2022-02-19 14:13:00 111 /min [facility] Body temperature 2022-02-19 14:13:00 37.11 Ericka [facility] Respiratory rate 2022-02-19 14:13:00 22 /min [facility] Body height 2022-02-19 14:13:00 162.6 cm [facility] Body weight 2022-02-19 14:13:00 104.327 kg [facility] BMI 2022-02-19 14:13:00 39.48 kg/m2 [facility] Oxygen saturation in 2022-02-19 14:13:00 99 /min [facility] [place] [employer] Pulse oximetry Branch Systolic blood 2021-11-29 22:40:00 116 mm[Hg] [facility] Diastolic blood 2021-11-29 22:40:00 85 mm[Hg] [facility] Heart rate 2021-11-29 22:40:00 87 /min [facility] Body temperature 2021-11-29 22:40:00 37.28 Ericka [facility] Respiratory rate 2021-11-29 22:40:00 16 /min [facility] Body height 2021-11-29 22:40:00 162.6 cm [facility] Body weight 2021-11-29 22:40:00 103.874 kg [facility] BMI 2021-11-29 22:40:00 39.31 kg/m2 [facility] Oxygen saturation in 2021-11-29 22:40:00 98 /min [facility] blood by [place] [facility] Pulse oximetry Branch Height 2021-04-23 00:58:00 [...] KG Pulse Rate 2023-03-03 03:33:00 87 /min [facility] (F/DAVID/SA) O2% BldC Oximetry 2023-03-03 03:33:00 98 % [facility] (F/DAVID/SA) BP Systolic 2023-03-03 03:16:00 154 mm[Hg] [facility] (LUF/DAVID/SA) BP Diastolic 2023-03-03 03:16:00 89 mm[Hg] [facility] (LUF/DAVID/SA) Body Temperature 2023-03-02 23:36:00 98.7 [degF] [facility] (F/DAVID/SA) Respiratory Rate 2023-03-02 23:36:00 16 /min [facility] (F/DAVID/SA) Height 2023-03-02 23:36:00 64 [in_i] [facility] (F/DAVID/SA) Weight 2023-03-02 23:36:00 99.9 kg [facility] (LUF/DAVID/SA) BMI (Body Mass 2023-03-02 23:36:00 38 kg/m2 [facility] Index) [facility] (LUF/DAVID/SA) Systolic blood 2021-10-26 15:16:33 119 mm[Hg] [facility] Diastolic blood 2021-10-26 15:16:33 87 mm[Hg] [facility] [place] [facility] Heart rate 2021-10-26 15:16:33 92 /min [facility]i ty [facility] Respiratory rate 2021-10-26 15:16:33 16 /[facility] Oxygen saturation in 2021-10-26 15:16:33 98 /min [facility] Arterial blood by Jeffrey muñoz Pulse oximetry [facility] Body Temperature 2021-04-23 00:58:00 97.8 [degF] [facility] (F/DAVID/SA) Pulse Rate 2021-04-23 00:58:00 116 /min [facility] (F/DAVID/SA) Respiratory Rate 2021-04-23 00:58:00 18 /min [facility] (F/DAVID/SA) O2% BldC Oximetry 2021-04-23 00:58:00 99 % [facility] (F/DAVID/SA) BP Systolic 2021-04-23 00:58:00 111 mm[Hg] [facility] (F/DAVID/SA) BP Diastolic 2021-04-23 00:58:00 77 mm[Hg] [facility] (F/DAVID/SA) Height 2021-04-23 00:58:00 64 [in_i] [facility] (F/DAVID/SA) Weight 2021-04-23 00:58:00 105.1 kg [facility] (F/DAVID/SA) BMI (Body Mass 2021-04-23 00:58:00 40 kg/m2 [facility] Index) [facility] (LUF/DAVID/SA) Body Temperature 2021-03-24 10:53:00 98.6 [degF] [facility] (LUF/DAVID/SA) Pulse Rate 2021-03-24 10:53:00 87 /min [facility] (LUF/DAVID/SA) Respiratory Rate 2021-03-24 10:53:00 18 /min [facility] (LUF/DAVID/SA) O2% BldC Oximetry 2021-03-24 10:53:00 97 % [facility] (LUF/DAVID/SA) BP Systolic 2021-03-24 10:53:00 120 mm[Hg] [facility] (LUF/DAVID/SA) BP Diastolic 2021-03-24 10:53:00 86 mm[Hg] [facility] (LUF/DAVID/SA) Height 2021-03-24 10:53:00 64 [in_i] [facility] (LUF/DAVID/SA) Weight 2021-03-24 10:53:00 105 kg [facility] (LUF/DAVID/SA) BMI (Body Mass 2021-03-24 10:53:00 40 kg/m2 [facility] (LUF/DAVID/SA) Body Temperature 2021-03-10 10:55:00 98.4 [degF] [facility] (LUF/DAVID/SA) Pulse Rate 2021-03-10 10:55:00 85 /min [facility] (LUF/DAVID/SA) Respiratory Rate 2021-03-10 10:55:00 20 /min [facility] (LUF/DAVID/SA) O2% BldC Oximetry 2021-03-10 10:55:00 100 % [facility] (LUF/DAVID/SA) BP Systolic 2021-03-10 10:55:00 140 mm[Hg] [facility] (LUF/DAVID/SA) BP Diastolic 2021-03-10 10:55:00 98 mm[Hg] [facility] (LUF/DAVID/SA) Height 2021-03-10 10:55:00 64 [in_i] [facility] (LUF/DAVID/SA) Weight 2021-03-10 10:55:00 105.2 kg [facility] (LUF/DAVID/SA) BMI (Body Mass 2021-03-10 10:55:00 40 kg/m2 [facility]) [facility] (LUF/DAVID/SA) Pulse Rate 2021-02-23 12:32:00 67 /min [facility] (LUF/DAVID/SA) O2% BldC Oximetry 2021-02-23 12:32:00 98 % [facility] (LUF/DAVID/SA) BP Systolic 2021-02-23 12:32:00 112 mm[Hg] [facility] (LUF/DAVID/SA) BP Diastolic 2021-02-23 12:32:00 70 mm[Hg] [facility] (LUF/DAVID/SA) Heart Rate 2021-02-23 11:16:00 64 /min [facility] (LUF/DAVID/SA) Respiratory Rate 2021-02-23 11:16:00 14 /min [facility] (F/DAVID/SA) Body Temperature 2021-02-23 08:24:00 98.1 [degF] [facility] (F/DAVID/SA) Height 2021-02-23 08:24:00 64 [in_i] [facility] (F/DAVID/SA) Weight 2021-02-23 08:24:00 110 kg [facility] (LUF/DAVID/SA) BMI (Body Mass 2021-02-23 08:24:00 41.9 kg/m2 [facility]) [facility] (F/DAVID/SA) Heart Rate 2021-01-10 01:46:00 93 /min [facility] (LUF/DAVID/SA) Pulse Rate 2021-01-10 01:46:00 95 /min [facility] (F/DAVID/SA) Respiratory Rate 2021-01-10 01:46:00 16 /min [facility] (F/DAVID/SA) O2% BldC Oximetry 2021-01-10 01:46:00 97 % [facility] (LUF/DAVID/SA) BP Systolic 2021-01-10 01:46:00 103 mm[Hg] [facility] (LUF/DAVID/SA) BP Diastolic 2021-01-10 01:46:00 71 mm[Hg] [facility] (LUF/DAVID/SA) Weight 2021-01-10 00:53:00 102 kg [facility] (LUF/DAVID/SA) Body Temperature 2021-01-10 00:47:00 98.6 [degF] [facility] (LUF/DAVID/SA) Pulse Rate 2020-12-12 14:20:00 87 /min [facility] (LUF/DAVID/SA) O2% BldC Oximetry 2020-12-12 14:20:00 98 % [facility] (LUF/DAVID/SA) BP Systolic 2020-12-12 14:20:00 128 mm[Hg] [facility] (LUF/DAVID/SA) BP Diastolic 2020-12-12 14:20:00 86 mm[Hg] [facility] (LUF/DAVID/SA) Body Temperature 2020-12-12 12:39:00 98.9 [degF] [facility] (LUF/DAVID/SA) Respiratory Rate 2020-12-12 12:39:00 20 /min [facility] (LUF/DAVID/SA) Weight 2020-12-12 12:39:00 102 kg [facility] (LUF/DAVID/SA) Body Temperature 2020-12-08 10:27:00 98.6 [degF] [facility] (LUF/DAVID/SA) Pulse Rate 2020-12-08 10:27:00 79 /min [facility] (LUF/DAVID/SA) Respiratory Rate 2020-12-08 10:27:00 16 /min [facility] (LUF/DAVID/SA) O2% BldC Oximetry 2020-12-08 10:27:00 99 % [facility] (LUF/DAVID/SA) BP Systolic 2020-12-08 10:27:00 111 mm[Hg] [facility] (LUF/DAVID/SA) BP Diastolic 2020-12-08 10:27:00 57 mm[Hg] [facility] (LUF/DAVID/SA) Weight 2020-12-08 10:27:00 103 kg [facility] (LUF/DAVID/SA) Body Temperature 2020-11-25 00:27:00 97.9 [degF] [facility] (LUF/DAVID/SA) Pulse Rate 2020-11-25 00:27:00 82 /min [facility] (LUF/DAVID/SA) Respiratory Rate 2020-11-25 00:27:00 17 /min [facility] (LUF/DAVID/SA) O2% BldC Oximetry 2020-11-25 00:27:00 98 % [facility] (LUF/DAVID/SA) BP Systolic 2020-11-25 00:27:00 109 mm[Hg] [facility] (LUF/DAVID/SA) BP Diastolic 2020-11-25 00:27:00 62 mm[Hg] [facility] (LUF/DAVID/SA) Heart Rate 2020-11-21 09:30:00 75 /min [facility] (LUF/DAVID/SA) Respiratory Rate 2020-11-21 09:30:00 14 /min [facility] (LUF/DAVID/SA) BP Systolic 2020-11-21 09:30:00 120 mm[Hg] [facility] (LUF/DAVID/SA) BP Diastolic 2020-11-21 09:30:00 76 mm[Hg] [facility] (F/DAVID/SA) Body Temperature 2020-11-21 07:15:00 98.1 [degF] [facility] (LUF/DAVID/SA) Pulse Rate 2020-11-21 07:15:00 103 /min [facility] (LUF/DAVID/SA) O2% BldC Oximetry 2020-11-21 07:15:00 100 % [facility] (F/DAVID/SA) Height 2020-11-21 07:15:00 64 [in_i] [facility] (F/DAVID/SA) Weight 2020-11-21 07:15:00 103.1 kg [facility] (F/DAVID/SA) BMI (Body Mass 2020-11-21 07:15:00 39.2 kg/m2 [facility] (LUF/DAVID/SA) Heart Rate 2020-11-14 13:30:00 69 /min [facility] (LUF/DAVID/SA) Pulse Rate 2020-11-14 13:30:00 70 /min [facility] (LUF/DAVID/SA) Respiratory Rate 2020-11-14 13:30:00 10 /min [facility] (LUF/DAVID/SA) O2% BldC Oximetry 2020-11-14 13:30:00 96 % [facility] (LUF/DAVID/SA) BP Systolic 2020-11-14 13:30:00 103 mm[Hg] [facility] (LUF/DAVID/SA) BP Diastolic 2020-11-14 13:30:00 77 mm[Hg] [facility] (LUF/DAVID/SA) Body Temperature 2020-11-14 09:47:00 97.4 [degF] [facility] (LUF/DAVID/SA) Weight 2020-11-14 09:47:00 103 kg [facility] (F/DAVID/SA) Body Temperature 2020-11-08 08:32:00 98.1 [degF] [facility] (LUF/DAVID/SA) Pulse Rate 2020-11-08 08:32:00 82 /min [facility] (F/DAVID/SA) Respiratory Rate 2020-11-08 08:32:00 20 /min [facility] (LUF/DAVID/SA) O2% BldC Oximetry 2020-11-08 08:32:00 100 % [facility] (F/DAVID/SA) BP Systolic 2020-11-08 08:32:00 129 mm[Hg] [facility] (LUF/DAVID/SA) BP Diastolic 2020-11-08 08:32:00 72 mm[Hg] [facility] (F/DAVID/SA) Height 2020-11-08 08:32:00 64 [in_i] [facility] (LUF/DAVID/SA) Weight 2020-11-08 08:32:00 103.1 kg [facility] (LUF/DAVID/SA) BMI (Body Mass 2020-11-08 08:32:00 39.2 kg/m2 [facility] Index) [facility] (LUF/DAVID/SA) Body Temperature 2020-11-01 00:58:00 98.7 [degF] [facility] (LUF/DAVID/SA) Pulse Rate 2020-11-01 00:58:00 104 /min [facility] (LUF/DAVID/SA) Respiratory Rate 2020-11-01 00:58:00 20 /min [facility] (F/DAVID/SA) O2% BldC Oximetry 2020-11-01 00:58:00 99 % [facility] (LUF/DAVID/SA) BP Systolic 2020-11-01 00:58:00 133 mm[Hg] [facility] (LUF/DAVID/SA) BP Diastolic 2020-11-01 00:58:00 101 mm[Hg] [facility] (LUF/DAVID/SA) Height 2020-11-01 00:53:00 65 [in_i] [facility] (F/DAVID/SA) Weight 2020-11-01 00:53:00 103 kg [facility] (LUF/DAVID/SA) BMI (Body Mass 2020-11-01 00:53:00 37.8 kg/m2 [facility] (LUF/DAVID/SA) Body Temperature 2020-10-04 23:51:00 98 [degF] [facility] (LUF/DAVID/SA) Pulse Rate 2020-10-04 23:51:00 96 /min [facility] (F/DAVID/SA) Respiratory Rate 2020-10-04 23:51:00 20 /min [facility] (F/DAVID/SA) O2% BldC Oximetry 2020-10-04 23:51:00 98 % [facility] (LUF/DAVID/SA) BP Systolic 2020-10-04 23:51:00 125 mm[Hg] [facility] (LUF/DAVID/SA) BP Diastolic 2020-10-04 23:51:00 73 mm[Hg] [facility] (LUF/DAVID/SA) Height 2020-10-04 23:47:00 65 [in_i] [facility] (LUF/DAVID/SA) Weight 2020-10-04 23:47:00 102.6 kg [facility] (LUF/DAVID/SA) BMI (Body Mass 2020-10-04 23:47:00 37.6 kg/m2 [facility] (LUF/DAVID/SA) Body Temperature 2020-09-18 01:44:00 98.3 [degF] [facility] (LUF/DAVID/SA) Pulse Rate 2020-09-18 01:44:00 116 /min [facility] (LUF/DAVID/SA) Respiratory Rate 2020-09-18 01:44:00 20 /min [facility] (F/DAVID/SA) O2% BldC Oximetry 2020-09-18 01:44:00 99 % [facility] (LUF/DAVID/SA) BP Systolic 2020-09-18 01:44:00 127 mm[Hg] [facility] (LUF/DAVID/SA) BP Diastolic 2020-09-18 01:44:00 83 mm[Hg] [facility] (LUF/DAVID/SA) Height 2020-09-18 01:40:00 64 [in_i] [facility] (LUF/DAVID/SA) Weight 2020-09-18 01:40:00 102.8 kg [facility] (LUF/DAVID/SA) BMI (Body Mass 2020-09-18 01:40:00 39.1 kg/m2 [facility] Index) [facility] (LUF/DAVID/SA) Pulse Rate 2020-09-12 02:16:00 88 /min [facility] (F/DAVID/SA) O2% BldC Oximetry 2020-09-12 02:16:00 98 % [facility] (F/DVAID/SA) BP Systolic 2020-09-12 02:16:00 113 mm[Hg] [facility] (LUF/DAVID/SA) BP Diastolic 2020-09-12 02:16:00 64 mm[Hg] [facility] (LUF/DAVID/SA) Body Temperature 2020-09-12 00:56:00 97.9 [degF] [facility] (LUF/DAVID/SA) Respiratory Rate 2020-09-12 00:56:00 18 /min [facility] (LUF/DAVID/SA) Height 2020-09-12 00:50:00 65 [in_i] [facility] (LUF/DAVID/SA) Weight 2020-09-12 00:50:00 104.5 kg [facility] (LUF/DAVID/SA) BMI (Body Mass 2020-09-12 00:50:00 38.3 kg/m2 [facility] Index) [facility] (LUF/DAVID/SA) Pulse Rate 2020-08-22 03:16:00 100 /min [facility] (LUF/DAVID/SA) O2% BldC Oximetry 2020-08-22 03:16:00 95 % [facility] (LUF/DAVID/SA) BP Systolic 2020-08-22 03:16:00 129 mm[Hg] [facility] (LUF/DAVID/SA) BP Diastolic 2020-08-22 03:16:00 88 mm[Hg] [facility] (LUF/DAVID/SA) Body Temperature 2020-08-22 01:35:00 98.4 [degF] [facility] (LUF/DAVID/SA) Respiratory Rate 2020-08-22 01:35:00 20 /min [facility] (LUF/DAVID/SA) Height 2020-08-22 01:35:00 64 [in_i] [facility] (LUF/DAVID/SA) Weight 2020-08-22 01:35:00 102 kg [facility] (LUF/DAVID/SA) BMI (Body Mass 2020-08-22 01:35:00 38.8 kg/m2 [facility] Index) [facility] (LUF/DAVID/SA) Pulse Rate 2020-08-06 03:31:00 83 /min [facility] (LUF/DAVID/SA) O2% BldC Oximetry 2020-08-06 03:31:00 96 % [facility] (LUF/DAVID/SA) BP Systolic 2020-08-06 03:31:00 127 mm[Hg] [facility] (LUF/DAVID/SA) BP Diastolic 2020-08-06 03:31:00 82 mm[Hg] [facility] (LUF/DAVID/SA) Body Temperature 2020-08-06 01:45:00 98 [degF] [facility] (F/DAVID/SA) Respiratory Rate 2020-08-06 01:45:00 20 /min [facility] (F/DAVID/SA) Height 2020-08-06 01:39:00 66 [in_i] [facility] (F/DAVID/SA) Weight 2020-08-06 01:39:00 104.2 kg [facility] (LUF/DAVID/SA) BMI (Body Mass 2020-08-06 01:39:00 37.3 kg/m2 [facility] (LUF/DAVID/SA) Pulse Rate 2020-07-19 11:16:00 67 /min [facility] (LUF/DAVID/SA) O2% BldC Oximetry 2020-07-19 11:16:00 94 % [facility] (F/DAVID/SA) BP Systolic 2020-07-19 11:16:00 101 mm[Hg] [facility] (LUF/DAVID/SA) BP Diastolic 2020-07-19 11:16:00 63 mm[Hg] [facility] (LUF/DAVID/SA) Body Temperature 2020-07-19 07:50:00 98 [degF] [facility] (F/DAVID/SA) Respiratory Rate 2020-07-19 07:50:00 18 /min [facility] (F/DAVID/SA) Weight 2020-07-19 07:50:00 100 kg [facility] (F/DAVID/SA) Heart Rate 2020-07-05 04:46:00 80 /min [facility] (LUF/DAVID/SA) Respiratory Rate 2020-07-05 04:46:00 15 /min [facility] (LUF/DAVID/SA) BP Systolic 2020-07-05 04:46:00 134 mm[Hg] [facility] (LUF/DAVID/SA) BP Diastolic 2020-07-05 04:46:00 60 mm[Hg] [facility] (LUF/DAVID/SA) Body Temperature 2020-07-05 02:57:00 98 [degF] [facility] (LUF/DAVID/SA) Pulse Rate 2020-07-05 02:57:00 82 /min [facility] (LUF/[facility]/SA) O2% BldC Oximetry 2020-07-05 02:57:00 99 % [facility] (LUF/DAVID/SA) Height 2020-07-05 02:50:00 65 [in_i] [facility] (LUF/DAVID/SA) Weight 2020-07-05 02:50:00 102.1 kg [facility] (LUF/DAVID/SA) BMI (Body Mass 2020-07-05 02:50:00 37.5 kg/m2 [facility] (LUF/DAVID/SA) Body Temperature 2020-06-07 13:38:00 98.5 [degF] [facility] (LUF/DAVID/SA) Pulse Rate 2020-06-07 13:38:00 95 /min [facility] (LUF/DAVID/SA) Respiratory Rate 2020-06-07 13:38:00 20 /min [facility] (LUF/DAVID/SA) O2% BldC Oximetry 2020-06-07 13:38:00 97 % [facility] (LUF/DAVID/SA) BP Systolic 2020-06-07 13:38:00 129 mm[Hg] [facility] (LUF/DAVID/SA) BP Diastolic 2020-06-07 13:38:00 73 mm[Hg] [facility] (LUF/DAVID/SA) Height 2020-06-07 13:38:00 64 [in_i] [facility] (LUF/DAVID/SA) Weight 2020-06-07 13:38:00 99.79 kg [facility] (LUF/DAVID/SA) BMI (Body Mass 2020-06-07 13:38:00 38 kg/m2 [facility]) [facility] (LUF/DAVID/SA) Body Temperature 2020-05-31 09:45:00 99.6 [degF] [facility] (LUF/DAVID/SA) Pulse Rate 2020-05-31 09:45:00 86 /min [facility] (LUF/DAVID/SA) Respiratory Rate 2020-05-31 09:45:00 18 /min [facility] (LUF/DAVID/SA) O2% BldC Oximetry 2020-05-31 09:45:00 98 % [facility] (LUF/DAVID/SA) BP Systolic 2020-05-31 09:45:00 118 mm[Hg] [facility] (LUF/DAVID/SA) BP Diastolic 2020-05-31 09:45:00 78 mm[Hg] [facility] (LUF/DAVID/SA) Height 2020-05-31 09:45:00 64 [in_i] [facility] (LUF/DAVID/SA) Weight 2020-05-31 09:45:00 99.79 kg [facility] (LUF/DAVID/SA) BMI (Body Mass 2020-05-31 09:45:00 38 kg/m2 [facility] (LUF/DAVID/SA) Heart Rate 2020-04-25 20:01:00 69 /min [facility] (LUF/DAVID/SA) Pulse Rate 2020-04-25 20:01:00 71 /min [facility] (LUF/DAVID/SA) Respiratory Rate 2020-04-25 20:01:00 18 /min [facility] (LUF/DAVID/SA) O2% BldC Oximetry 2020-04-25 20:01:00 100 % [facility] (LUF/DAVID/SA) BP Systolic 2020-04-25 20:01:00 126 mm[Hg] [facility] (LUF/DAVID/SA) BP Diastolic 2020-04-25 20:01:00 86 mm[Hg] [facility] (LUF/DAVID/SA) Body Temperature 2020-04-25 16:50:00 98.4 [degF] [facility] (LUF/DAVID/SA) Height 2020-04-25 16:50:00 64 [in_i] [facility] (LUF/DAVID/SA) Weight 2020-04-25 16:50:00 220 [lb_av] [facility] (LUF/DAVID/SA) BMI (Body Mass 2020-04-25 16:50:00 38 kg/m2 [facility] Index) [facility] (LUF/DAVID/SA) Heart Rate 2020-03-20 18:18:00 112 /min [facility] (LUF/DAVID/SA) Pulse Rate 2020-03-20 18:16:00 93 /min [facility] (LUF/DAVID/SA) O2% BldC Oximetry 2020-03-20 18:16:00 92 % [facility] (LUF/DAVID/SA) BP Systolic 2020-03-20 18:16:00 127 mm[Hg] [facility] (LUF/DAVID/SA) BP Diastolic 2020-03-20 18:16:00 85 mm[Hg] [facility] (LUF/DAVID/SA) Body Temperature 2020-03-20 17:17:00 99.2 [degF] [facility] (LUF/DAVID/SA) Respiratory Rate 2020-03-20 17:17:00 19 /min [facility] (LUF/DAVID/SA) Height 2020-03-20 17:17:00 64 [in_i] [facility] (LUF/DAVID/SA) Weight 2020-03-20 17:17:00 106.9 kg [facility] (LUF/DAVID/SA) BMI (Body Mass 2020-03-20 17:17:00 40.7 kg/m2 [facility] Index) [facility] (LUF/DAVID/SA) Respiratory Rate 2020-03-17 10:33:00 16 /min [facility] (LUF/DAVID/SA) Body Temperature 2020-03-17 07:54:00 97.9 [degF] [facility] (LUF/DAVID/SA) Pulse Rate 2020-03-17 07:54:00 83 /min [facility] (LUF/DAVID/SA) O2% BldC Oximetry 2020-03-17 07:54:00 96 % [facility] (LUF/DAVID/SA) BP Systolic 2020-03-17 07:54:00 107 mm[Hg] [...] Body Temperature 2020-03-02 15:20:00 98.6 [degF] [facility] (LUF/DAVID/SA) Pulse Rate 2020-03-02 15:20:00 86 /min [facility] (LUF/DAVID/SA) Respiratory Rate 2020-03-02 15:20:00 18 /min [facility] (LUF/DAVID/SA) O2% BldC Oximetry 2020-03-02 15:20:00 99 % [facility] (LUF/DAVID/SA) BP Systolic 2020-03-02 15:20:00 131 mm[Hg] [facility] (LUF/DAVID/SA) BP Diastolic 2020-03-02 15:20:00 85 mm[Hg] [facility] (LUF/DAVID/SA) Height 2020-03-01 10:54:00 64 [in_i] [facility] (LUF/DAVID/SA) Weight 2020-03-01 10:54:00 102 kg [facility] (LUF/DAVID/SA) BMI (Body Mass 2020-03-01 10:54:00 38.8 kg/m2 [facility] (LUF/DAVID/SA) Respiratory Rate 2020-02-27 07:47:00 16 /min [facility] (LUF/DAVID/SA) Body Temperature 2020-02-27 07:32:00 98.2 [degF] [facility] (LUF/DAVID/SA) Pulse Rate 2020-02-27 07:32:00 94 /min [facility] (LUF/DAVID/SA) O2% BldC Oximetry 2020-02-27 07:32:00 95 % [facility] (LUF/DAVID/SA) BP Systolic 2020-02-27 07:32:00 111 mm[Hg] [facility] (LUF/DAVID/SA) BP Diastolic 2020-02-27 07:32:00 56 mm[Hg] [facility] (LUF/DAVID/SA) Weight 2020-02-26 02:09:00 99.6 kg [facility] (LUF/DAVID/SA) Height 2020-02-25 10:03:00 64 [in_i] [facility] (LUF/DAVID/SA) Body Temperature 2020-02-25 00:52:00 97.9 [degF] [facility] (LUF/DAVID/SA) Pulse Rate 2020-02-25 00:52:00 118 /min [facility] (LUF/DAVID/SA) Respiratory Rate 2020-02-25 00:52:00 18 /min [facility] (LUF/DAVID/SA) O2% BldC Oximetry 2020-02-25 00:52:00 97 % [facility] (LUF/DAVID/SA) BP Systolic 2020-02-25 00:52:00 133 mm[Hg] [facility] (LUF/DAVID/SA) BP Diastolic 2020-02-25 00:52:00 67 mm[Hg] [facility] (LUF/DAVID/SA) Height 2020-02-25 00:47:00 64 [in_i] [facility] (LUF/DAVID/SA) Weight 2020-02-25 00:47:00 103.4 kg [facility] (LUF/DAVID/SA) BMI (Body Mass 2020-02-25 00:47:00 39.3 kg/m2 [facility] Index) [facility] (LUF/DAVID/SA) Body Temperature 2020-01-25 11:32:00 98.4 [degF] [facility] (LUF/DAVID/SA) Pulse Rate 2020-01-25 11:32:00 81 /min [facility] (LUF/DAVID/SA) Respiratory Rate 2020-01-25 11:32:00 14 /min [facility] (LUF/DAVID/SA) O2% BldC Oximetry 2020-01-25 11:32:00 98 % [facility] (LUF/DAVID/SA) BP Systolic 2020-01-25 11:32:00 139 mm[Hg] [facility] (LUF/DAVID/SA) BP Diastolic 2020-01-25 11:32:00 89 mm[Hg] [facility] (LUF/DAVID/SA) Height 2020-01-25 11:32:00 64 [in_i] [facility] (LUF/DAVID/SA) Weight 2020-01-25 11:32:00 100.5 kg [facility] (LUF/DAVID/SA) BMI (Body Mass 2020-01-25 11:32:00 38.2 kg/m2 [facility] Index) [facility] (LUF/DAVID/SA) Heart Rate 2019-11-24 04:16:00 84 /min [facility] (LUF/DAVID/SA) Pulse Rate 2019-11-24 04:16:00 90 /min [facility] (LUF/DAVID/SA) Respiratory Rate 2019-11-24 04:16:00 26 /min [facility] (LUF/DAVID/SA) O2% BldC Oximetry 2019-11-24 04:16:00 98 % [facility] (LUF/DAVID/SA) BP Systolic 2019-11-24 04:16:00 106 mm[Hg] [facility] (LUF/DAVID/SA) BP Diastolic 2019-11-24 04:16:00 69 mm[Hg] [facility] (LUF/DAVID/SA) Body Temperature 2019-11-24 00:54:00 98.4 [degF] [facility] (LUF/DAVID/SA) Height 2019-11-24 00:49:00 65 [in_i] [facility] (LUF/DAVID/SA) Weight 2019-11-24 00:49:00 103 kg [facility] (LUF/DAVID/SA) BMI (Body Mass 2019-11-24 00:49:00 37.8 kg/m2 [facility] (LUF/DAVID/SA) Heart Rate 2019-10-07 22:54:00 83 /min [facility] (LUF/DAVID/SA) Respiratory Rate 2019-10-07 22:54:00 14 /min [facility] (LUF/DAVID/SA) Pulse Rate 2019-10-07 22:31:00 89 /min [facility] (LUF/DAVID/SA) O2% BldC Oximetry 2019-10-07 22:31:00 97 % [facility] (LUF/DAVID/SA) BP Systolic 2019-10-07 21:16:00 127 mm[Hg] [facility] (LUF/DAVID/SA) BP Diastolic 2019-10-07 21:16:00 85 mm[Hg] [facility] (LUF/DAVID/SA) Height 2019-10-07 20:41:00 64 [in_i] [facility] (LUF/DAVID/SA) Weight 2019-10-07 20:41:00 100.2 kg [facility] (LUF/DAVID/SA) BMI (Body Mass 2019-10-07 20:41:00 38.1 kg/m2 [facility] (LUF/DAVID/SA) Pulse Rate 2019-09-20 04:16:00 96 /min [facility] (LUF/DAVID/SA) Respiratory Rate 2019-09-20 04:16:00 9 /min [facility] (LUF/DAVID/SA) O2% BldC Oximetry 2019-09-20 04:16:00 96 % [facility] (LUF/DAVID/SA) BP Systolic 2019-09-20 04:16:00 97 mm[Hg] [facility] (LUF/DAVID/SA) BP Diastolic 2019-09-20 04:16:00 76 mm[Hg] [facility] (LUF/DAVID/SA) Body Temperature 2019-09-20 00:44:00 98 [degF] [facility] (LUF/DAVID/SA) Height 2019-09-20 00:39:00 65 [in_i] [facility] (LUF/DAVID/SA) Weight 2019-09-20 00:39:00 101.9 kg [facility] (LUF/DAVID/SA) BMI (Body Mass 2019-09-20 00:39:00 37.4 kg/m2 [facility]) [facility] (LUF/DAVID/SA) Pulse Rate 2019-08-17 04:31:00 81 /min [facility] (LUF/DAVID/SA) Respiratory Rate 2019-08-17 04:31:00 13 /min [facility] (LUF/DAVID/SA) O2% BldC Oximetry 2019-08-17 04:31:00 97 % [facility] (LUF/DAVID/SA) BP Systolic 2019-08-17 04:31:00 136 mm[Hg] [facility] (LUF/DAVID/SA) BP Diastolic 2019-08-17 04:31:00 75 mm[Hg] [facility] (LUF/DAVID/SA) Body Temperature 2019-08-17 02:23:00 97.6 [degF] [facility] (LUF/DAVID/SA) Height 2019-08-17 02:19:00 64 [in_i] [facility] (LUF/DAVID/SA) Weight 2019-08-17 02:19:00 100.6 kg [facility] (LUF/DAVID/SA) BMI (Body Mass 2019-08-17 02:19:00 38.3 kg/m2 [facility]) [facility] (LUF/DAVID/SA) Pulse Rate 2018-12-07 02:33:00 79 /min [facility] (LUF/DAVID/SA) Respiratory Rate 2018-12-07 02:33:00 15 /min [facility] (LUF/DAVID/SA) O2% BldC Oximetry 2018-12-07 02:33:00 96 % [facility] (LUF/DAVID/SA) BP Systolic 2018-12-07 02:33:00 120 mm[Hg] [facility] (LUF/DAVID/SA) BP Diastolic 2018-12-07 02:33:00 76 mm[Hg] [facility] (LUF/DAVID/SA) Body Temperature 2018-12-07 01:10:00 98.2 F [facility] (LUF/DAVID/SA) Height 2018-12-07 01:10:00 64 in [facility] (F/DAVID/SA) Weight Measured 2018-12-07 01:10:00 218.25 lbs [facility] (LUF/DAVID/SA) BMI (Body Mass 2018-12-07 01:10:00 37.7 kg/m2 [facility] Index) [facility] (LUF/DAVID/SA) Pulse Rate 2018-09-30 19:40:00 70 /min [facility] (LUF/DAVID/SA) Respiratory Rate 2018-09-30 19:40:00 21 /min [facility] (F/DAVID/SA) O2% BldC Oximetry 2018-09-30 19:40:00 100 % [facility] (LUF/DAVID/SA) BP Systolic 2018-09-30 19:40:00 124 mm[Hg] [facility] (LUF/DAVID/SA) BP Diastolic 2018-09-30 19:40:00 88 mm[Hg] [facility] (LUF/DAVID/SA) Body Temperature 2018-09-30 19:23:00 99.3 F [facility] (F/DAVID/SA) Height 2018-09-30 19:23:00 66 in [facility] (F/DAVID/SA) Weight Measured 2018-09-30 19:23:00 212.52 lbs [facility] S [facility] (LUF/DAVID/SA) BMI (Body Mass 2018-09-30 19:23:00 34.5 kg/m2 [facility] Index) [facility] (LUF/DAVID/SA) Body Temperature 2018-09-01 13:59:00 98 F [facility] (LUF/DAVID/SA) Pulse Rate 2018-09-01 12:15:00 74 /min [facility] (LUF/DAVID/SA) Respiratory Rate 2018-09-01 12:15:00 16 /min [facility] (LUF/DAVID/SA) O2% BldC Oximetry 2018-09-01 12:15:00 98 % [facility] (LUF/DAVID/SA) BP Systolic 2018-09-01 12:15:00 131 mm[Hg] [facility] (LUF/DAVID/SA) BP Diastolic 2018-09-01 12:15:00 78 mm[Hg] [facility] (LUF/DAVID/SA) Height 2018-09-01 09:16:00 64 in [facility] (F/DAVID/SA) Weight Measured 2018-09-01 09:16:00 214.24 lbs [facility] (LUF/DAVID/SA) BMI (Body Mass 2018-09-01 09:16:00 37 kg/m2 [facility] (LUF/DAVID/SA) Body Temperature 2018-05-13 10:58:00 99 F [facility] (LUF/DAVID/SA) Pulse Rate 2018-05-13 10:58:00 97 /min [facility] (LUF/DAVID/SA) Respiratory Rate 2018-05-13 10:58:00 18 /min [facility] (F/DAVID/SA) O2% BldC Oximetry 2018-05-13 10:58:00 98 % [facility] (LUF/DAVID/SA) BP Systolic 2018-05-13 10:58:00 131 mm[Hg] [facility] (LUF/DAVID/SA) BP Diastolic 2018-05-13 10:58:00 88 mm[Hg] [facility] (F/DAVID/SA) Height 2018-05-13 10:58:00 64 in [facility] (LUF/DAVID/SA) Weight Measured 2018-05-13 10:58:00 207.23 lbs [facility] (LUF/DAVID/SA) BMI (Body Mass 2018-05-13 10:58:[address] [facility] Body Temperature 2017-12-24 08:04:00 98.7 F [facility] (LUF/DAVID/SA) Respiratory Rate 2017-12-24 08:04:00 18 /min [facility] (LUF/DAVID/SA) O2% BldC Oximetry 2017-12-24 08:04:00 98 % [facility] (LUF/DAVID/SA) BP Systolic 2017-12-24 08:04:00 126 mm[Hg] [facility] (LUF/DAVID/SA) BP Diastolic 2017-12-24 08:04:00 86 mm[Hg] [facility] (LUF/DAVID/SA) Weight Measured 2017-12-24 08:04:00 207.23 lbs [facility] (F/DAVID/SA) Body Temperature 2017-06-20 23:28:00 97.4 F [facility] (F/DAVID/SA) Respiratory Rate 2017-06-20 23:28:00 20 /min [facility] (F/DAVID/SA) O2% BldC Oximetry 2017-06-20 23:28:00 99 % [facility] (LUF/DAVID/SA) BP Systolic 2017-06-20 23:28:00 107 mm[Hg] [facility] (LUF/DAVID/SA) BP Diastolic 2017-06-20 23:28:00 76 mm[Hg] [facility] (F/DAVID/SA) Height 2017-06-20 23:28:00 64 in [facility] (F/DAVID/SA) Weight Measured 2017-06-20 23:28:00 217.15 lbs [facility] (LUF/DAVID/SA) BMI (Body Mass 2017-06-20 23:28:00 37.5 [facility] (LUF/DAVID/SA) Procedures Procedure Date / Time Performing Clinician Source Performed LIPASE 2023-03-19 04:35:00 Tato Swain [facility] MAGNESIUM 2023-03-19 04:35:00 Tato Swain [facility] COMP. METABOLIC PANEL 2023-03-19 04:35:00 Tato Swain [facility] ([id number]) [facility] CBC WITH DIFF 2023-03-19 04:35:00 Tato Swain [facility] URINALYSIS 2023-03-19 04:35:00 Tato Swain [facility] CBC WITH DIFF 2023-03-19 04:35:00 Tato Swain [facility] CONSENT/REFUSAL FOR 2023-03-19 03:58:57 Doctor Unassigned, No [facility] [place] [facility] [id number] 2023-01-21 00:00:00 JOE [facility] CBC WITH DIFF 2022-12-25 04:21:00 Komal Correa [facility] CONSENT/REFUSAL FOR 2022-12-25 03:39:49 Doctor Unassigned, No [facility] [place] [facility] TEST, SERUM 2022-12-16 22:19:00 Valentin Box [facility] COMP. METABOLIC PANEL 2022-12-16 22:19:00 Valentin Box [facility] ([id number]) [facility] URINE DRUG (IMMUNOASSAY) 2022-12-16 22:19:00 Valentin Box [facility] DRUG Medical [facility] SCREEN CBC WITH DIFF 2022-12-16 22:19:00 Valentin Box [facility] URINALYSIS 2022-12-16 22:19:00 Valentin Box [facility] CONSENT/REFUSAL FOR 2022-12-16 21:59:42 Doctor Unassigned, No [facility] [place] [facility] TREATMENT Name [facility] CT ABDOMEN PELVIS W 2022-11-21 05:31:[address] [facility] POCT TEST 2022-11-21 04:40:00 Suzanne Lopez [facility] LIPASE 2022-11-21 03:35:00 Suzanne Lopez [facility] COMP. METABOLIC PANEL 2022-11-21 03:35:00 Suzanne Lopez [facility] ([id number]) [facility] CBC WITH DIFF 2022-11-21 03:35:00 Suzanne Lopez [facility] URINALYSIS 2022-11-21 03:35:00 Suaznne Lopez [facility] CONSENT/REFUSAL FOR 2022-11-21 02:48:21 Doctor Unassigned, No Un i[facility] DIAGNOSIS AND TREATMENT Name Medical Branch LIPASE 2022-10-26 03:56:00 Valentin Box [facility] COMP. METABOLIC PANEL 2022-10-26 03:56:00 Valentin Box [facility] ([id number]) [facility] CBC WITH DIFF 2022-10-26 03:56:00 Valentin Box [facility] URINE DRUG (IMMUNOASSAY) 2022-10-26 03:50:00 Valentin Box [facility] - COMPREHENSIVE DRUG Medical [facility] SCREEN URINALYSIS 2022-10-26 03:50:00 Valentin Box [facility] CONSENT/REFUSAL FOR 2022-10-26 03:29:08 Doctor Unassigned, No [facility] [place] [facility] Name [facility] LIPASE 2022-10-03 05:40:00 Montserrat Acosta [facility] TEST, SERUM 2022-10-03 05:40:00 [facility]OLIC [facility]EL 2022-10-03 05:40:00 [id number] CBC WITH DIFF 2022-10-03 05:40:00 Montserrat Acosta [facility] NOTICE OF PRIVACY 2022-10-03 03:10:55 Doctor Unassigned, No [facility] PRACTICES Name [facility] CONSENT/REFUSAL FOR 2022-10-03 03:10:26 [facility]igned, No [facility] Name [facility] POCT SARS-COV-2 ANTIGEN 2022-06-13 23:43:00 Magdalene Lucia [facility] (BINAX NOW) [facility] Branch CT ABDOMEN PELVIS WO 2022-05-07 15:06:09 Ridge Pagan [facility] CONTRAST [facility] BASIC METABOLIC PANEL 2022-05-07 14:20:00 Ridge Pagan [facility] (NA, K, CL, CO2, GLUCOSE, Medica l Branch BUN, CREATININE, CA) CBC WITH DIFF 2022-05-07 14:20:00 Ridge Pagan [facility] URINALYSIS 2022-05-07 14:20:00 Ridge Pagan [facility] CONSENT/REFUSAL FOR 2022-05-07 13:49:51 Doctor Unassigned, No [facility] Name [facility] CT ABDOMEN PELVIS WO 2022-02-19 15:49:34 [facility] 2022-02-19 14:26:00 [facility] COMP. METABOLIC PANEL 2022-02-19 14:26:00 Joanna HarrisFormerly [facility] ([id number]) [facility] CBC WITH DIFF 2022-02-19 14:26:00 [facility] URINALYSIS 2022-02-19 14:26:00 [facility] CONSENT/REFUSAL FOR 2022-02-19 14:11:01 Doctor [facility]igned, [facility] Name [facility] POCT MOLECULAR FLU 2021-11-29 22:46:00 [facility] BASILIC 2020-03-15 00:00:[address] [facility] [facility] VN PERQ [facility] (LUF/DAVID/SA) ULTRASONOGRAPHY LT UP EXT 2020-03-15 00:00:[address] [facility] V[facility] GUID [facility] (LUF/DAVID/SA) ROBOTIC LAP LYSIS OF 2020-03-02 12:56:[address] [facility] ADHESIONS [facility] (LUF/DAVID/SA) LAPAROSCOPY ENTEROLYSIS 2020-03-02 00:00:[address] [facility] SEPARATE PROCEDU [facility] (LUF/DAVID/SA) COLONOSCOPY FLX DX 2020-02-26 00:00:[address] [facility] k[facility] W/COLLJ SPEC WHEN PFR [facility] (LUF/DAVID/SA) ROBOTIC RIGHT 2019-03-21 17:09:00 [facility] OOPHORECTOMY LUF (Right) Memoria l (LUF/DAVID/SA) CYSTO RGP STENT PLACEMENT 2015-04-20 14:01:00 CH I [facility] (LUF/DAVID/SA) CYSTO RGP STENT PLACEMENT 2015-04-20 14:01:00 CH I [facility] (LUF/DAVID/SA) Hysterectomy [facility] (LUF/DAVID/SA) Total thyroidectomy [facility] (LUF/DAVID/SA) section [facility] (LUF/DAVID/SA) ABDOMINAL ADHESIONS [facility] REMOVED [facility] (LUF/DAVID/SA) Extracorporeal shockwave [facility] lithotripsy [facility] (LUF/DAVID/SA) MULTIPLE CYSTECTOMYS DONE [facility] (LUF/DAVID/SA) MULTIPLE CYSTECTOMYS DONE [facility] (LUF/DAVID/SA) ABDOMINAL ADHESIONS [facility] REMOVED [facility] (LUF/DAVID/SA) Appendectomy [facility] (LUF/DAVID/SA) Plan of Care Planned Activity Planned Date Details Comments Source Future Scheduled 2023-01-24 COVID-19 Vaccination [facility] [place] Test 15:47:07 (#1) [code = [facility] Center Future Scheduled 2023-01-24 COVID-19 Vaccination [facility] Test 15:47:07 (#1) [code = [facility] BARN[facility] (#1)] Center Future Scheduled 2023-01-24 COVID-19 Vaccination [facility] Test 15:47:07 (#1) [code = [facility]IE BARNARD [facility] (#1)] Center Future Scheduled 2022-10-25 COVID-19 Vaccination [facility] Test 11:08:40 (#1) [code = CAROLYNN-Dayo BARNARD [facility] (#1)] Center Future Scheduled 2022-10-25 COVID-19 Vaccination [facility] [place] Test 11:08:40 (#1) [code = CAROLYNN-Dayo BARNARD [facility] [...] Type Clinicians Facility Department ID 2021-07-27 Outpatient JEANA Arango [facility] [id number] Common 08:27:02 Josué 0127 [facility] 2021-07-26 Outpatient Nba, STLMLC STLMLC Common 14:20:31 Josué 1203 [facility] 2021-07-26 Outpatient Nba, STLMLC STLMLC Common 14:05:52 Josué 1027 [facility] 2021-07-26 Outpatient Nba, STLMLC STLC Common 12:01:28 Josué 1103 [facility] 2021-07-26 Outpatient Nba, STLMLC STLMLC Common 11:56:42 Josué 1019 [facility] 2021-07-26 Outpatient Nba, STLMLC STLMLC Common 11:49:38 Josué 0928 [facility] 2021-07-26 Outpatient Nba, STLMLC STLC Common 11:48:02 Josué 0922 [facility] 2021-07-26 Outpatient Nba, STLMLC STLMLC Common 11:47:47 Josué 0921 [facility] 2021-07-26 Outpatient Nba, STLMLC STLMLC Common 11:42:15 Josué 0901 [facility] 2021-07-26 Outpatient Nba, STLMLC STLMLC Common 11:32:09 Joséu 0720 [facility] 2023-03-18 2023-03-19 Emergency X Tato SWAIN [facility] ERT [id number] [facility] 23:02:00 01:14:00 ity of [facility] 2023-03-18 2023-03-19 Emergency Tato Swain [facility] [id number] Univers 23:02:00 01:14:00 Liset GAONA [id number] i ty [facility] [id number] [facility] [id number] [place] [address] [place] 2023-03-02 2023-03-03 RIGHT 1 LONI COTTON EMD [id number] [facility] 23:30:00 03:54:00 LOWER RE[facility] (LUF/LI V/SA) 2023-03-02 2023-03-02 [facility]patient [facility] [facility] 9fb8 5601-b [facility] 00:[facility]:00 [place] i40-31h3-k Gutierrez es [place], 93b-0r007n Memor ia [id number] l [address] (LUF/LI A[address], V/[place]) [place] [address] 2023-03-02 2023-03-02 Inpatient [facility] 7ef0 6bd1-[address] 00:00:00 00:00:00 [place] [id number] Gutierrez es [place], 57a-4d6edc Memor ia [address] 29i196 l [place] (LUF/LI AVE, V/[place]) [place] [address] 2023-01-21 2023-01-23 Inpatient [place] [address] [id number] [facility] 16:42:00 10:30:00 Lion 41 [facility] 2022-12-24 2022-12-24 Emergency X CORREA, [facility] ERT [id number] Univers 22:54:00 23:38:00 KOMAL melo [facility] 2022-12-24 2022-12-24 Emergency [facility] 1.2.121.450 [id number] Univers 22:54:00 23:38:00 Komal [place] 350.1.13.10 i ty of [place] 4.2.7.2.686 [facility] [id number] [address] 2022-12-16 2022-12-16 Emergency X VASUT, [facility] ERT [id number] Univers 17:03:00 19:23:00 VALENTIN melo [facility] 2022-12-16 2022-12-16 Emergency Vasut, [facility] 1.2.888.559 [id number] Univers 17:03:00 19:23:00 Valentin [place] 350.1.13.10 i ty of [place] 4.2.7.2.686 [facility] [id number] [address] 2022-11-20 2022-11-21 Emergency [facility] [id number] Univers 21:54:00 02:10:00 SUZANNE melo [facility] 2022-11-20 2022-11-21 Emergency [facility] 1.2.840.114 [id number] Univers 21:54:00 02:10:00 Suzanne [place] 350.1.13.10 ity [facility] 4.2.7.2.686 [facility] [id number] [address] 2022-10-25 2022-10-26 Emergency X VASUT, [facility] ERT [id number] Univers 22:33:00 01:21:00 VALENTIN morganphoebe [facility] 2022-10-25 2022-10-26 Emergency [facility] 1.2.741.109 [id number] [id number] Univers 22:33:00 01:21:00 Valentin [place] 350.1.13.10 i ty [facility] 4.2.7.2.686 [facility] [id number] [address] 2022-10-02 2022-10-03 Emergency X RIDDLE, [facility] ERT [id number] Univers 22:34:00 02:31:00 MONTSERRAT sandhu [facility] 2022-10-02 2022-10-03 Emergency [place], [facility] 1.2.337.928 [id number] Univers 22:34:00 02:31:00 Montserrat [place] 350.1.13.10 ity [facility] 4.2.7.2.686 [facility] [id number] [address] 2022-08-12 2022-08-12 Outpatient FOG_Dunn_Wa AOSM AOSM 643 9319-20 Adelia 00:00:00 00:00:00 Jhon [id number] [facility] 2022-07-22 2022-07-22 Outpatient FOG_Dunn_Wa AOSM AOSM 643 9319-20 Adelia 00:00:00 00:00:00 Jhon [id number] [facility] 2022-07-06 2022-07-06 Outpatient FOG_Dunn_Wa AOSM AOSM 643 9319-20 Adelia 00:00:00 00:00:00 Jhon [id number] [facility] 2022-06-17 2022-06-17 Outpatient FOG_Ingrid_Wi AOSM AO 643 9319- Adelia 00:00:00 00:00:00 Jhon 100580 [facility] 2022-06-13 2022-06-13 Outpatient R KHARI [facility] [id number] Univers 17:20:00 17:41:53 MAGDALENE [facility] 2022-06-13 2022-06-13 Urgent Khari [facility] 1.2.840.114 [id number] Univers 17:20:00 17:41:53 Care Unknown, Attending HEALTH 350.1.13.10 ity of [place] 4.2.7.2.686 Jacques as SUE?BLEA [id number] [address] 2022-06-13 2022-06-13 Telephone [facility] 1.2.364.873 [id number] Univers 00:00:00 00:00:00 [facility] 350.1.13.10 it y of [place] 4.2.7.2.686 Jacques as SUE?BLEA [id number] [address] 2022-05-13 2022-05-13 Outpatient Priscilla_Wi AOSM AO 643 9319-20 Adelia 00:00:00 00:00:00 Jhon 114840 [facility] 2022-05-07 2022-05-07 Emergency X SOHA [facility] ERT [id number] Univers 07:57:00 09:45:00 RIDGE [facility] 2022-05-07 2022-05-07 [facility] 1.2.827.894 [id number] 5069 Univers 07:57:00 09:45:00 Ridge [facility] 350.1.13.10 i ty of [place] 4.2.7.2.686 [place] [id number] [address] 2022-05-07 2022-05-07 Outpatient FOG_Ingrid_Wa AOSM AOSM 643 9319-20 Adelia 00:00:00 00:00:00 Jhon 454853 [facility] 2022-05-07 2022-05-07 Patient Doctor REHAN 1.2.840.114 [id number] Univers 00:00:00 00:00:00 Secure Msg Unassigned, ROSA 350.1.13.10 ity of [facility] 4.2.7.2.686 Jacques as [phone] [facility] [address] 2022-04-23 2022-04-23 Emergency EM Ingrid FRANKIETO AMPARO [id number] [facility] 09:39:00 10:55:00 [facility] [place] [facility] 2022-02-19 2022-02-19 Emergency X STEVEN, [facility] ERT [id number] Univers 09:15:00 11:05:00 [facility] 2022-02-19 2022-02-19 Emergency [facility] 1.2.840.114 [id number] Univers 09:15:00 11:05:00 [facility] 350.1.13.10 i ty of [place] 4.2.7.2.686 [place] [facility] [id number] [address] 2021-11-29 2021-11-29 [facility] 1.2.840.114 [id number] Univers 17:40:00 18:00:00 Care [facility] 350.1.13.10 it y of [place] 4.2.7.2.686 Jacques as SUE?BLEA [id number] Pr dical [address] MEDICAL OFFICE BUILDING 2021-11-29 2021-11-29 Outpatient [facility] [id number] Univers 17:40:00 17:40:00 [facility] 2021-11-29 2021-11-29 Outpatient Irwin [facility] [id number] Univers 17:40:00 17:40:00 [facility] 2021-10-26 2021-10-26 Office GEOVANI Blas 1.2.840.1 [id number] Univers 09:45:00 10:47:06 Visit Praveen 57584.1.1 ity of 3.412.2.7 [place] .3.968773 .8 [facility] 2021-10-26 2021-10-26 Travel 1.2.840.1 1.2.026.608 9721 [id number] Univers 00:00:00 00:00:00 95406.1.1 350.1.13.41 ity of 3.412.2.7 2.[place]7.3.698 [place] .3.877165 084.8 .8 [facility] 2021-10-15 2021-10-[address] [facility] [id number] 22:25:00 22:45:00 CONSCIOUS EKTA Gamboa s SIMULATION Memor ia l (LUF/LI V/SA) 2021-10-15 2021-10-15 Inpatient [facility] 79e1 4a53-b [facility] 00:[facility]:00 00:00:00 [place] [id number] [facility], [id number] Memor ia [address] 097eaa l [place] (LUF/LI AVE, V/[place]) [place] [address] 2021-10-15 2021-10-15 Inpatient [facility] 2f6e c8b8-[address] 00:00:00 00:00:00 [place] 053-4dfa-8 [facility], [id number] Memor ia [address] 66e57b l [place] (LUF/LI A[address], V/SA) [place] [address] 2021-08-29 2021-08-29 Outpatient R TERE [facility] [id number] Univers 16:20:00 16:20:00 PATRICK melo of [facility] 2021-08-07 2021-08-07 Emergency EM SANTINO Clements [id number] [facility] 09:36:00 12:55:00 Olga 19 [facility] 2021-08-01 2021-08-02 Emergency X BRIELLE [facility] ERT [id number] Univers 22:00:00 01:17:00 LEANNE ity of [facility] 2021-08-01 2021-08-02 Emergency [facility] 1.2.407.919 [id number] Univers 22:00:00 01:17:00 Leanne S CANDELARIA 350.1.13.10 i ty of [place] 4.2.7.2.686 [place] [id number] [facility] 084 [place] 2021-06-28 2021-06-28 Outpatient R [facility] [id number] Univers 17:30:00 17:30:00 [facility]ENE [facility] 2021-06-22 2021-06-22 Letter REHAN Chaves 1.2.840.114 [id number] Univers 00:00:00 00:00:00 (Out) Eve LEE 350.1.13.10 it y of [facility] 4.2.7.2.686 Jacques as [phone] [facility] [address] [place] 2021-06-22 2021-06-22 Refill [facility] 1.2.840.114 [id number] Univers 00:00:00 00:00:00 [employer] HEALTH 350.1.13.10 it y of [place] 4.2.7.2.686 Jacques as SUE?BLEA [id number] [address] MEDICAL OFFICE BUILDING 2021-06-21 2021-06-21 Outpatient R TERE [facility] [id number] Univers 11:00:00 12:14:12 [facility]ICK [facility] 2021-06-21 2021-06-21 Urgent Patrick Carranza [facility] 1.2.840.114 [id number] Univers 11:00:00 11:20:00 Ameena Rodriguez [facility] 350.1.13.10 ity of [place] 4.2.7.2.686 Jacques as SUE?BLEA [id number] [address] MEDICAL OFFICE BUILDING 2021-06-21 2021-06-21 Telephone [facility] 1.2.840.114 [id number] Univers 00:00:00 00:00:00 Rania HEALTH 350.1.13.10 it y of [place] 4.2.7.2.686 Jacques as SUE?BLEA [phone] Pr jada [place] [address] MEDICAL OFFICE BUILDING 2021-06-21 2021-06-21 Letter Doctor REHAN 1.2.840.114 [id number] Univers 00:00:00 00:00:00 (Out) Unassigned, ROSA 350.1.13.10 [place] 4.2.7.2.686 Jacques as [phone] [address] 2021-05-30 2021-05-30 (TEL) STLMLC STLMLC [id number] Co mmon 00:00:00 00:00:00 [facility] 2021-05-29 2021-05-29 (TEL) STLMLC STLMLC [id number] Co mmon 00:00:00 00:00:00 [facility] 2021-04-26 2021-04-26 (TEL) STLMLC STLMLC [id number] Co mmon 00:00:00 00:00:00 [facility] 2021-04-23 2021-04-23 UNSPECIFIE 1 LONI DYKES EMD [id number] [facility] [address] 00:46:00 02:08:00 D SETH Dhaliwal ABDOMINAL Memori a PAIN l (LUF/LI V/SA) 2021-04-23 2021-04-23 Inpatient [facility] [place] [address] ce73-[address] 00:00:00 00:00:00 [place] a38-7z60-5 [facility], [id number]-[id number] Memor ia [address] a89c0d l [place] (LUF/LI AVE, V/SA) JULIÁN ROSA [address] 2021-04-23 2021-04-23 Inpatient MMC OF MMC OF [address] 1878-[address] 00:00:00 00:00:00 [place] y5f-3675-5 [facility], [id number] Memor ia [address] 822c23 l [place] (LUF/LI AVE, V/SA) [place] [address] 2021-03-24 2021-03-24 ANXIETY 1 COTTON, [facility] OF [facility] [id number] [facility] [address] 10:25:00 12:27:00 DISORDER REHAN [facility] UNSPECIFIE [place], Memor ia D [address] [place] (LUF/LI AVE, V/SA) [place] [address] 2021-03-24 2021-03-24 Inpatient M[facility] OF [facility] f871 cc2a-c [facility] 00:00:00 00:00:00 [place] 9aa-405b-9 [facility], [id number] Memor ia [address] cf90e3 l [place] (LUF/LI AVE, V/[place]) [place] [address] 2021-03-24 2021-03-24 Inpatient [facility] e945 ff19-c [facility] 00:00:00 00:00:00 [place] l44-9i23-l [facility], 88b-033ffa Memor ia [address] 683da2 l [place] ([address]F/LI [address], V/[place]) [place] [address] 2021-03-23 2021-03-23 Orders Nofies, 1.2.840.1 [id number] Univers 00:00:00 00:00:00 Only Viktoriya Charlton 09013.1.1 ity of 3.412.2.7 [place] .3.799666 .8 [facility] 2021-03-10 2021-03-10 UTI SITE E RODRICK, [facility] [id number] [facility] [address] 10:29:00 13:50:00 NOT JUAN [facility] [address] [place] ([address]F/LI A[address], V/SA) [place] [address] 2021-03-10 2021-03-10 Inpatient [facility] 16e7 6598-b [facility] 00:00:00 00:00:00 [place] n0o-7677-1 [facility], [id number]-[id number] Memor ia [address] 8ebb0b l [place] (LUF/LI A[address], V/[place]) [place] [address] 2021-03-10 2021-03-10 Inpatient [facility] OF [facility] 518c 3339-c [facility] 00:00:00 00:00:00 [place] z56-1tg3-9 [facility], a9u-7cx30n Memor ia [address] f904e5 l [place] (LUF/LI AVE, V/SA) [place] [address] 2021-02-23 2021-02-23 RIGHT E [facility] OF [facility] [id number] [facility] [address] 08:15:00 12:44:00 [facility], Memoria PAIN [address] [place] (LUF/LI AVE, V/SA) [place] [address] 2021-02-23 2021-02-23 Inpatient [facility] OF [facility] 89b5 d1de-[address] 00:00:00 00:00:00 [place] 09f-406d-9 [facility], 74d-24f9de Memor ia [address] e8fcf1 l [place] (LUF/LI AVE, V/SA) [place] [address] 2021-02-23 2021-02-23 Inpatient [facility] 8500 e20f-[address] 00:00:00 00:00:00 [place] 1ef-425c-a [facility], [id number] Memor ia [address] 1655de l [place] (LUF/LI AVE, V/SA) [place] [address] 2021-01-10 2021-01-10 CALCULUS E JANIA, [facility] [id number] 00:21:00 03:06:00 OF KIDNEY SETH [facility] Memoria [address] [place] (LUF/LI A[address], V/SA) [place] [address] 2021-01-10 2021-01-10 Inpatient [facility] ff0d 2205-c [facility] 00:00:00 00:00:00 [place] o95-2t89-u [facility], 72a-11f6e9 Memor ia [address] 3fb6a8 l [place] (LUF/LI A[address], V/SA) [place] [address] 2021-01-10 2021-01-10 Inpatient [facility] fe83-e [facility] 00:[facility]:00 00:00:00 [place] ff6-4d87-9 [facility], 32e-3f75c9 Memor ia [address] e09ed4 l [place] (LUF/LI A[address], V/SA) [place] [address] 2020-12-27 2020-12-[address] [facility] Zarina [id number] [address] [place] 00:00:00 00:00:[address] 2020-12-22 2020-12-[address] CHIDILML TIC [id number] 09:00:00 09:00:00 SKYE Dhaliwal Memoria l (LUF/LI V/SA) 2020-12-13 2020-12-13 Emergency EM [place], [facility] [id number] [facility] 01:53:00 06:36:[address] [place] [address] 2020-12-12 2020-12-12 RIGHT Jake COTTON, [facility] [id number] 12:33:00 14:00:00 [facility], Memoria PAIN [address] [place] (LUF/LI A[address], V/SA) [place] [address] 2020-12-12 2020-12-12 Inpatient [facility] e2c0 cb47-b [facility] 00:00:00 00:00:00 [place] 82f-45d0-a [facility], 13e-0f9f6d Memor ia [address] q1n441 l [place] (LUF/LI A[address], V/SA) [place] [address] 2020-12-12 2020-12-12 Inpatient [facility] 43ed f7fe-[address] 00:00:00 00:00:00 [place] i82-22xm-j [facility], 316-5y704m Memor ia [address] 70ade3 l [place] (LUF/LI A[address], V/SA) [place] [address] 2020-12-08 2020-12-08 SHREYAS SOTOMAYOR, [facility] OF [facility] [place] [address] [id number] 09:44:00 12:26:00 D WYATT [facility] ABDOMINAL [facility] a PAIN [address] [place] (LUF/LI A[place], V/[place]) [place] [address] 2020-12-08 2020-12-08 Inpatient [facility] 6a3f a794-a [facility] 00:[facility]:00 00:00:00 [place] 5e2-8f67-8 [facility], [id number] Memor ia [address] 9973a7 l [place] (LUF/LI AVE, V/SA) [place] [address] 2020-11-25 2020-11-25 UNSPECIFIE [facility] OF [facility] [place] [id number] 00:13:00 00:30:00 D [facility], [facility] a PAIN [address] [place] (LUF/LI A[place], V/SA) [place] [address] 2020-11-25 2020-11-25 Inpatient [facility] 3041 db6a-[address] [facility] [address] 00:00:00 00:00:00 [place] fb6-4754-b [facility], [id number]-usi716 Memor ia [address] 841f4f l [place] (LUF/LI AVE, V/SA) [place] [address] 2020-11-25 2020-11-25 Inpatient [facility] a3eb ed11-a [facility] 00:00:00 00:00:00 [place] i16-0ku8-8 [facility], [id number] Memor ia [address] ea5dda l [place] (LUF/LI AVE, V/SA) [place] [address] 2020-11-21 2020-11-21 ENDOMETRIO 1 [facility] [id number] 07:14:00 09:53:00 SIS [facility], Memor ia D [address] [place] (LUF/LI A[address], V/SA) [place] [address] 2020-11-21 2020-11-21 Inpatient [facility] 90f0 278b-[address] 00:00:00 00:00:00 [place] 1w3-13or-3 [facility], 4bb-5eeded Memor ia [address] 9g6798 l [place] (LUF/LI A[address], V/SA) [place], JULIÁN [address] 2020-11-21 2020-11-21 Inpatient [facility] 3b21 9c7a-[address] 00:00:00 00:00:00 [place] 30a-405e-8 [facility], [id number] Memor ia [address] 3040c4 l [place] (LUF/LI AVE, V/SA) [place], JULIÁN [address] 2020-11-14 2020-11-14 GASTRITIS 1 YURY [facility] EMD [id number] [facility] [address] 09:27:00 14:37:00 UNS REHAN [facility] WITHOUT Memoria BLEEDING l (LUF/LI V/SA) 2020-11-14 2020-11-14 Inpatient [facility] d4fe d3e2-[address] [facility] [address] 00:00:00 00:00:00 [place] 3cf-4b7a-a [facility], [id number]-d46ca7 Memor ia [address] 2d56cc l [place] (LUF/LI AVE, V/SA) [place], JULIÁN [address] 2020-11-14 2020-11-14 Inpatient [facility] 324e 65b9-b [facility] 00:00:00 00:00:00 [place] 464-403c-8 [facility], [id number] Memor ia [address] l3048j l [place] (LUF/LI A[place], V/[place]) [place] [address] 2020-11-08 2020-11-08 OTHER E COTTON, [facility] [address] 08:04:00 13:13:00 CHRONIC REHAN [place] Irsa [facility], Memoria [address] [place] (LUF/LI A[place], V/SA) [place] [address] 2020-11-08 2020-11-08 Inpatient [facility] 8079 b52c-c [facility] 00:00:00 00:00:00 [place] ed8-4ae3-8 [facility], [id number] Memor ia [address] cf6d84 l [place] (LUF/LI A[place], V/[place]) [place] [address] 2020-11-08 2020-11-08 Inpatient [facility] 0f07 dc59-[address] [facility] [address] 00:00:00 00:00:00 [place] 292-4184-b [facility], 8ff-[id number] Memor ia [address] d1bfd4 l [place] (LUF/LI AVE, V/SA) [place] [address] 2020-11-08 2020-11-08 Inpatient [facility] 40b4 e14c-1 [facility] 00:00:00 00:00:00 [place] 784-40e4-9 [facility], [id number] Memor ia [address] 29ea9a l [place] (LUF/LI AVE, V/SA) [place], [place] [address] 2020-11-01 2020-11-01 AAKASH MUÑOZ, [facility] 19280 13142 [facility] 00:27:00 03:55:[address] [facility], Memoria UNSPECIFIE [address] D [place] ([address]F/LI [address], V/SA) [place], [place] [address] 2020-11-01 2020-11-01 Inpatient [facility] OF [facility] [id number] [facility] 00:00:00 00:00:00 [place] [id number] [facility], [id number] Memor ia [address] [id number] l [place] ([address]F/LI [address], V/SA) [place] [address] 2020-11-01 2020-11-01 Inpatient [facility] OF [facility] [id number] 00:[facility]:00 00:00:00 [place] [id number] [facility], [id number] Memor ia [address] [id number] l [place] ([address]LI [address], V/SA) [place] [address] 2020-10-04 2020-10-05 OTHER Jake MENSAH, [facility] OF [facility] [id number] 23:32:00 01:00:00 CHRONIC JUAN [place] [facility] [place], Memoria [address] [place] ([address], V/SA) [place] [address] 2020-10-04 2020-10-04 Inpatient [facility] OF [facility] [id number] [facility] 00:[facility] 00:00:00 [place] [id number] [facility], [id number] Memor ia [address] [id number] l [place] ([address], V/SA) [place] [address] 2020-10-04 2020-10-04 Inpatient [facility] OF [facility] [id number] 00:00:00 00:00:00 [place] [id number] [facility], [id number] Memor ia [address] [id number] l [place] ([address]F/LI [address], V/SA) [place] [address] 2020-09-18 2020-09-18 OTHER E [facility] OF [facility] [id number] 01:00:00 04:44:00 CHRONIC [place] [facility] [place], Memoria [address] [place] ([address], V/SA) [place], [place] [address] 2020-09-18 2020-09-18 Inpatient [facility] b80a [id number] 00:00:00 00:00:00 [place] [id number] [facility], [id number] Memor ia [address] [id number] l [place] ([address]LI [address], V/SA) [place] [address] 2020-09-18 2020-09-18 Inpatient [facility] OF [facility] [id number] [id number] [facility] 00:[facility]:00 00:00:00 [place] [id number] [facility], [id number] Memor ia [address] [id number] l [place] ([address]/LI [address], V/SA) [place] [address] 2020-09-12 2020-09-12 ENDOMETRIO E [place], [facility] [place] [address] [id number] [facility] 00:46:00 02:38:00 SIS [facility] UNSPECIFIE [place], Memor ia D [address] [place] ([address], V/SA) [place], [place] [address] 2020-09-12 2020-09-12 Inpatient [facility] OF [facility] [id number] [id number] [facility] 00:00:00 00:00:00 [place] [id number] [facility], [id number] Memor ia [address] [id number] l [place] ([address], V/[place]) [place] [address] 2020-09-12 2020-09-12 Inpatient [facility] [id number] [id number] [facility] 00:[facility]:00 00:00:00 [place] [id number] [facility], [id number] Memor ia [address] [id number] l [place] ([address], V/[place]) [place] [address] 2020-08-22 2020-08-22 OTHER Jake MENSAH, AD OF [facility] [id number] [facility] [address] 01:13:00 03:24:00 CHRONIC [facility], Memoria [address] [place] ([address] A[address], V/SA) [place] [address] 2020-08-22 2020-08-22 Inpatient [facility] OF [facility] [id number] 00:00:00 00:00:00 [place] [id number] [facility], [id number] Memor ia [address] [id number] l [place] ([address]F/LI A[address], V/[place]) [place] [address] 2020-08-22 2020-08-22 Inpatient M[facility] OF [facility] [id number] [id number] [facility] 00:[facility]:00 00:00:00 [place] [id number] [facility], [id number] Memor ia [address] [id number] l [place] ([address], V/SA) [place] [address] 2020-08-06 2020-08-06 Inpatient AD KNIGHT OF [facility] [id number] [facility] [address] 01:21:00 03:35:00 [facility] [address] [place] ([address], V/SA) [place] [address] 2020-08-06 2020-08-06 Inpatient [facility] [facility] [id number] [facility] 00:00:00 00:00:00 [place] [id number] [facility], [id number] Memor ia [address] [id number] l [address] (LUF/LI A[address], V/[place]) [place] [address] 2020-07-19 2020-07-19 RIGHT Jake COTTON, [facility] [id number] [facility] [address] 07:50:00 11:20:00 [facility] PAIN [address] (LUF/LI A[address], V/SA) [place] [address] 2020-07-19 2020-07-19 Inpatient [facility] [id number] [facility] 00:00:00 00:00:00 [place] [id number] [facility], [id number] Memor ia [address] [id number] l [address] (LUF/LI AVE, V/SA) [place] [address] 2020-07-19 2020-07-19 Inpatient [facility] [id number] [facility] [address] 00:00:00 00:00:00 [place] [id number] [facility], [id number] Memor ia [address] [id number] l [address] (LUF/LI A[address], V/SA) [place] [address] 2020-07-05 2020-07-05 OTHER E RODRICK, [facility] [id number] 02:42:00 05:00:00 CHRONIC [facility], Memoria [address] ([address]F/LI A[address], V/SA) [place] [address] 2020-07-05 2020-07-05 Inpatient [facility] [id number] [facility] 00:00:00 00:00:00 [place] [id number] [facility], [id number] Memor ia [address] [id number] l [address] ([address]F/LI A[address], V/[place]) [place] [address] 2020-07-05 2020-07-05 Inpatient [facility] [id number] [facility] 00:00:00 00:00:00 [place] [id number] [facility], [id number] Memor ia [address] [id number] l [address] (LUF/LI AVE, V/SA) [place] [address] 2020-06-10 2020-06-10 (TEL) [facility] [id number] Co mmon 00:00:00 00:00:00 [facility] 2020-06-07 2020-06-07 Inpatient 1 YURY, [facility] [place] [address] [id number] [facility] 12:56:00 19:04:00 [facility] [address] (LUF/LI A[address], V/SA) [place] [address] 2020-06-07 2020-06-07 Inpatient [facility] 5603 [id number] [facility] 00:00:00 00:00:00 [place] [id number] [facility], [id number] Memor ia [address] [id number] l [address] (LUF/LI A[address], V/SA) [place] [address] 2020-05-31 2020-05-31 Inpatient E YURY, [facility] [place] [address] [id number] [facility] 09:31:00 14:13:00 [facility] [address] (LUF/LI A[address], V/SA) [place] [address] 2020-05-10 2020-05-[address] [facility] [id number] Common 00:00:00 00:00:00 [facility] 2020-05-09 2020-05-09 [address] [id number] Common 00:00:00 00:00:00 [facility] 2020-05-05 2020-05-05 Outpatient STLMLC STLMLC [id number] Common 00:00:00 00:00:00 [facility] 2020-05-02 2020-05-02 Outpatient STLMLC STLMLC [id number] Common 00:00:00 00:00:00 [facility] 2020-05-02 2020-05-02 Outpatient STLMLC STLMLC [id number] Common 00:00:00 00:00:00 [facility] 2020-04-29 2020-04-29 Outpatient STLMLC STLMLC [id number] Common 00:00:00 00:00:00 [facility] 2020-04-25 2020-04-25 LEFT LOWER E [facility] [id number] 16:46:00 21:30:00 QUADRANT [facility] [address] ([address]F/LI [address], V/SA) [place] [address] 2020-04-22 2020-04-22 Outpatient STLMLC STLMLC [id number] Common 00:00:00 00:00:00 [facility] 2020-04-20 2020-04-20 PROC&TX [facility] [id number] [facility] [address] 15:39:00 16:03:[address] [facility] OUT PT [address] LEAVE [address] (LUF/LI A[address], V/SA) [place] [address] 2020-04-20 2020-04-20 Outpatient STLMLC STLMLC [id number] Common 00:00:00 00:00:00 [facility] 2020-04-20 2020-04-20 Outpatient STLMLC STLMLC [id number] Common 00:00:00 00:00:00 [facility] 2020-04-15 2020-04-15 Outpatient STLMLC STLMLC [id number] Common 00:00:00 00:00:00 [facility] 2020-04-13 2020-04-13 Outpatient STLMLC STLMLC [id number] Common 00:00:00 00:00:00 [facility] 2020-04-12 2020-04-12 Outpatient STLMLC STLMLC [id number] Common 00:00:00 00:00:00 [facility] 2020-04-11 2020-04-11 Outpatient STLMLC STLMLC [id number] Common 00:00:00 00:00:00 [facility] 2020-04-08 2020-04-08 Outpatient STLMLC STLMLC [id number] Common 00:00:00 00:00:00 [facility] 2020-04-06 2020-04-06 Outpatient STLMLC STLMLC [id number] Common 00:00:00 00:00:00 [facility] 2020-04-04 2020-04-04 Outpatient STLMLC STLMLC [id number] Common 00:00:00 00:00:00 [facility] 2020-03-31 2020-03-31 Outpatient STLMLC STLMLC [id number] Common 00:00:00 00:00:00 [facility] 2020-03-29 2020-03-29 Outpatient GEOVANI BLAS [facility] [id number] 00:00:00 00:00:00 PRAVEEN payton 2020-03-29 2020-03-29 Outpatient STLMLC STLMLC [id number] Common 00:00:00 00:00:00 [facility] 2020-03-28 2020-03-28 Outpatient STLMLC STLMLC [id number] Common 00:00:00 00:00:00 [facility] 2020-03-22 2020-03-22 Outpatient STLMLC STLMLC [id number] Common 00:00:00 00:00:00 [facility] 2020-03-21 2020-03-21 Outpatient STLMLC STLMLC [id number] Common 00:00:00 00:00:00 [facility] 2020-03-20 2020-03-20 FEDE COTTON [place] [address] [address] 17:08:00 22:56:00 ABDOMINAL REHAN [place] Luke s PAIN [place], [facility] UNSPECIFIE [address] stefanie MEHTA (LUF/YUKI WEBB, V/SA) [place] [address] 2020-03-14 2020-03-17 CELLULITIS E TRUX, [facility] [id number] 14:54:00 11:30:[address] [facility] s ABDOMINAL [facility] a WALL [address] ([address]F/[address], V/SA) [place] [address] 2020-03-03 2020-03-03 [facility] [id number] Common 13:33:00 13:33:00 Clinics [facility] 2020-03-02 2020-03-02 FE RYAN WOLFE, [facility] [id number] 05:58:00 15:35:00 PERITON LIZBETH [facility] POSTINFECT [address] KIERAN [address] (LUF/LI A[address], V/[place]) [place] [address] 2020-03-02 2020-03-[address] [facility] [id number] Common 00:00:00 00:00:00 [facility] 2020-03-01 2020-03-01 [facility] [id number] Common 09:15:00 09:15:00 [facility] 2020-02-29 2020-02-29 [facility] [id number] Common 09:30:00 09:30:00 [facility] 2020-02-25 2020-02-27 LOWER E COTTON, [facility] [id number] 13:21:00 12:09:00 ABDOMINAL REHAN [facility] PAIN [facility] UNSPECIFIE [address] D [address] (LUF/LI A[address], V/SA) [place], JULIÁN [address] 2020-02-25 2020-02-25 UNSPECIFIE E RODRICK, [facility] [id number] [facility] 00:40:00 05:00:00 D JUAN [facility] a PAIN [address] ([address]F/LI A[address], V/SA) [place] [address] 2020-01-25 2020-01-25 LOW BACK 1 COTTON, [facility] OF [facility] [id number] 11:28:00 13:15:00 PAIN REHAN [facility], Memoria [address] ([address]F/LI A[address], V/SA) [place] [address] 2020-01-18 2020-01-18 Outpatient [facility] [id number] Common 11:45:00 11:45:00 Clinics [facility] 2019-12-09 2019-12-09 OTHER E [facility] OF [facility] [id number] 03:03:00 05:08:00 CHRONIC [facility] PAIN [place], Memoria [address] ([address]/LI [address], V/SA) [place] [address] 2019-11-24 2019-11-24 UNSPECIFIE E [facility] OF [facility] [id number] 00:31:00 05:30:00 D [facility] ABDOMINAL [place], Memori a PAIN [address] ([address]F/LI A[address], V/SA) [place] [address] 2019-10-07 2019-10-07 RIGHT 1 COTTON, [facility] [place] [address] 20:35:00 23:10:00 LOWER [facility] QUADRANT [place], Memoria PAIN [address] ([address]F/LI A[address], V/SA) [place] [address] 2019-09-20 2019-09-20 RIGHT 1 COTTON, [facility] [id number] 00:33:00 04:23:00 LOWER [facility] QUADRANT [place], Memoria PAIN [address] ([address]F/[address], V/SA) [place] [address] 2019-08-17 2019-08-17 UNSPECIFIE 1 TRUX, [facility] [id number] 02:18:00 04:45:[address] [facility] s ABDOMINAL [place], Memori a PAIN [address] ([address]F/LI A[address], V/SA) [place] [address] 2019-04-22 2019-04-22 Outpatient [facility] [id number] Common 12:03:00 12:03:00 Clinics [facility] Health [facility] 2019-04-14 2019-04-14 Outpatient [facility] [id number] Common 16:12:00 16:12:00 Clinics [facility]'s - [facility] 2019-04-06 2019-04-06 Outpatient [facility] [id number] Common 12:16:00 12:16:00 [facility] Health Health [facility] 2019-03-31 2019-03-31 Outpatient [facility] [id number] Common 14:00:00 14:00:00 [facility] Health Health [facility] 2018-12-07 2018-12-07 UNSPECIFIE 1 QUINTIN BRITO [facility] OF [facility] [id number] [facility] 01:06:00 04:45:00 D OVARIAN [place] Luke s CYST RIGHT [facility] ia SIDE [address] ([address]F/[address], V/SA) [place] [address] 2018-10-29 2018-10-29 N-PRSS CHR BLAKEST[place], [facility] OF [facility] [id number] [facility] 06:59:00 23:59:00 [facility] [address] ([address], V/SA) [place] [address] 2018-10-22 2018-10-22 N-PRSS CHR [place], [facility] OF [facility] [id number] [facility] 07:20:00 23:59:00 ULCR SKIN MIKY [place] [facility] [address] ([address], V/SA) [place] [address] 2018-10-15 2018-10-15 N-PRSS CHR O [place]KEST[place], [facility] OF [facility] [id number] [facility] 07:08:00 23:59:00 [facility] [address] ([address], V/SA) [place] [address] 2018-09-30 2018-10-01 INFCT FOL 1 SHABNAM, [facility] [id number] [facility] 18:46:00 01:05:00 PRC SUPF DIMAS [facility] INC SRG [facility] SIT INIT [address] ([address], V/SA) [place] [address] 2018-09-01 2018-09-01 OTH 1 WANDA, [facility] [place] [id number] 09:12:00 14:00:00 NONINFL CLEMENT [facility] D/O OVARY [place]BRD [address] LIG [address] (LUF/LI AVE, V/SA) [place] [address] 2018-05-13 2018-05-13 Inpatient 1 WANDA, [facility] [place] [id number] 10:52:00 13:46:00 [facility] [address], V/SA) [place], [place] [address] 2017-12-24 2017-12-24 UNSPECIFIE 1 QUINTIN BRITO [facility] [id number] [facility] 07:51:00 13:52:[address] [facility] s CYST RIGHT [place], [facility] SIDE [address] ([address]F/LI [address], V/SA) [place] [address] 2017-06-20 2017-06-21 HYDRONPHRO 1 RODRICK, [facility] [id number] [facility] 23:01:00 03:55:00 S JUAN [facility] RENL&URETR [place], [facility] L CALCUL [address] (LUF/LI A[address], V/SA) [place] [address] 2017-05-13 2017-05-13 OTHER 3 MERLE, [facility] [place] [id number] 15:40:00 23:59:00 FATIGUE ASA [facility], Memoria [address] ([address]F/[address], V/[place]) [place] [address] Results Test Description Test Time Test Comments [...] 33.8 g/dL 31.6-35.1 RDW-SD (test code = 38126-0) 43.0 fL 39.0-49.9 RDW-CV (test code = 788-0) 13.1 % 12.0-15.5 PLT (test code = 777-3) 273 See_Comment [Au tomated message] The system which ge nerated this result transmit michael reference range: 166 - 35 8 10*3/?L. The reference range was not used to interpret th is result as normal/abnormal . MPV (test code = 74048-8) 8.9 fL 9.5-12.9 L NRBC/100 WBC (test code = 0.0 See_Comment [ Automated message] The 6343648227) system which ge nerated this result transmit michael reference range: 0.0 - 10 .0 /100 WBCs. The reference r bruce was not used to interpr et this result as normal/abnor mal. NRBC x10^3 (test code = See_Comment [Au tomated message] The 6128152218) system which ge nerated this result transmit michael reference range: 10*3/?L. The reference range was not u sed to interpret this result as normal/abnormal . GRAN MAT (NEUT) % (test code 65.3 % = 770-8) IMM GRAN % (test code = 2.20 % 2017165212) LYMPH % (test code = 736-9) 25.8 % MONO % (test code = 5905-5) 6.2 % EOS % (test code = 713-8) 0.1 % BASO % (test code = 706-2) 0.4 % GRAN MAT x10^3(ANC) (test 6.19 10*3/uL 1.88-7.09 code = 9552079760) IMM GRAN x10^3 (test code = 0.21 10*3/uL 0.00-0.06 H 3435504357) LYMPH x10^3 (test code = 2.45 10*3/uL 1.32-3.29 731-0) MONO x10^3 (test code = 0.59 10*3/uL 0.33-0.92 742-7) EOS x10^3 (test code = 0.03-0.39 L 711-2) BASO x10^3 (test code = 0.04 10*3/uL 0.01-0.07 704-7) TOXIC CHANGES (test code = Present A 803-7) Lab Interpretation (test Abnormal code = 89924-5) [facility] METABOLIC PANEL (08118)2023-03-19 05:03:48 Test Item Value Reference Range Interpretation Comments NA (test code = 138 mmol/L 135-145 3220283528) K (test code = 4.5 mmol/L 3.5-5.0 4890523439) CL (test code = 107 mmol/L 98-108 4951969569) CO2 TOTAL (test code = 22 mmol/L 23-31 L 6457856210) AGAP (test code = 9 2-16 7609417914) BUN (test code = 19 mg/dL 7-23 1150139610) GLUCOSE (test code = 81 mg/dL 70-110 8922842685) CREATININE (test code = 0.57 mg/dL 0.50-1.04 2968185438) TOTAL BILI (test code = 0.3 mg/dL 0.1-1.8 4705350089) CALCIUM (test code = 9.4 mg/dL 8.6-10.6 9237518940) T PROTEIN (test code = 6.9 g/dL 6.3-8.2 1563721466) ALBUMIN (test code = 4.2 g/dL 3.5-5.0 4497801293) ALK PHOS (test code = 73 U/L 34-122 3649626515) ALTv (test code = 23 U/L 5-35 1742-6) AST(SGOT) (test code = 25 U/L 13-40 0245889994) eGFR (test code = 120.0 mL/min/1.73m2 7539526657) RENZO (test code = RENZO) Association of [...] tests). Lab Interpretation Abnormal (test code = 59080-7) [place] [facility] 05:03:48 Test Item Value Reference Range Interpretation Comments MAGNESIUM (test code = 2202734583) 2.0 mg/dL 1.7-2.4 Lab Interpretation (test code = Normal 09342-5) [place] [facility] MET[facility]OLIC PANEL (29554)2023-03-19 05:03:48 Test Item Value Reference Range Interpretation Comments NA (test code = 138 mmol/L 135-145 6050040388) K (test code = 4.5 mmol/L 3.5-5.0 4356985600) CL (test code = 107 mmol/L 98-108 9697207273) CO2 TOTAL (test code = 22 mmol/L 23-31 L 1319670248) AGAP (test code = 9 2-16 2181015780) BUN (test code = 19 mg/dL 7-23 6054971741) GLUCOSE (test code = 81 mg/dL 70-110 8770640479) CREATININE (test code = 0.57 mg/dL 0.50-1.04 0048360138) TOTAL BILI (test code = 0.3 mg/dL 0.1-1.3 1390604061) CALCIUM (test code = 9.4 mg/dL 8.6-10.6 0728926915) T PROTEIN (test code = 6.9 g/dL 6.3-8.2 7321634621) ALBUMIN (test code = 4.2 g/dL 3.5-5.0 7911303253) ALK PHOS (test code = 73 U/L 34-122 7597656145) ALTv (test code = 23 U/L 5-35 1742-6) AST(SGOT) (test code = 25 U/L 13-40 4998692455) eGFR (test code = 120.0 mL/min/1.73m2 2894839437) RENZO (test code = RENZO) Association of [...] tests). Lab Interpretation Abnormal (test code = 73371-7) [place] [facility] 05:03:48 Test Item Value Reference Range Interpretation Comments MAGNESIUM (test code = 8349395872) 2.0 mg/dL 1.7-2.4 Lab Interpretation (test code = Normal 38574-3) [place] [facility]23-[facility]-19 05:03:27 Test Item Value Reference Range Interpretation Comments LIPASE (test code = 1194452334) 109 U/L 0-220 Lab Interpretation (test code = Normal 04486-1) [place] [facility] 05:03:27 Test Item Value Reference Range Interpretation Comments LIPASE (test code = 9540437368) 109 U/L 0-220 Lab Interpretation (test code = Normal 31455-7) [place] [facility]/PELVIS [id number] 02:12:15Hx stone disease [facility] (LUF/DAVID/SA)Name: LAUREN BETH : 1985 [...] Velasquez 03/03/2023 2:08Dictated By: ALVINA VELASQUEZADate: 03/03/2023 02:11STLMLSTAT LAB CHEM [id number] 01:29:00 Test Item Value Reference Range Interpretation [...] code = CO2) 19.0 mmol/l 24.0-29.[address] [facility] URINALYSIS WITHOUT [id number] 01:22:00 Test Item Value Reference Range Interpretation Comments Color (test code = Yellow Lt. Yellow A UCOLR) Clarity (test code = Slightly Cloudy UCLAR) Glucose (test code = Negative Negative N UGLUC) Bilirubin (test code Negative Negative N = UBILI) Ketones (test code = Negative Negative N UKET) Specific [place] >=1.030 1.005-1.030 A (test code = USPGR) [...] Negative Negative N (test code = ULEUK) STLSTAT LAB CBC WITH AUTO [id number] 01:20:00 Test Item Value Reference Range Interpretation [...] code = IG%) 0.5 % 0.0-0.4 H [id number] 14:39:00 Test Item Value Reference Range Interpretation Comments SURGICAL (test code = SR) RUN DATE: 01/23/23 [facility] PAGE 1 RUN TIME: 1439 Specimen Inquiry RUN USER: INTERFACE FLASH ENT: LAUREN BETH #: [id number] LOC: LALIT Segovia #: [id number] AGE/SX: 37/F ROOM: AMANDA RE01/21/23REG DR: Lion Maxwell MD : [birth year] BED: 1 DIS: 01/23/23 STATUS: DIS IN TLOC: SPEC #: [id number]:PMC:[id number] RECD: 01/22/23 STATUS: KWAME RE #: [id number] MELISSA: 01/21/23-[address]: Lion Maxwell MD ENTERED: 01/22/23 SP TYPE: SURGICAL OTHR DR: Self Referred Maco Lewis MD, Stevenson C MDORDERED: 13242, ANATOMIC SPEC, SPECIMEN TRACK COPIES TO: Self Referred Maco Lewis MD [address] [place] [id number] [place] [address] [facility] [address] [place] [address] Kory Erwin MD [facility] [place] [address] PROCEDURES: 84199 (01/22/23) SPECIMEN TRACK (01/22/23) TISSUES: A. PELVIS [...] tissue processing and slide preparation performed at [facility] [address] [address] , [place] [address] CONTINUED ON NEXT PAGE RUN DATE: 01/23/23 [facility] PAGE 2 RUN TIME: 143 Specimen Inquiry RUN USER: INTERFACE SPEC #: [id number]:[facility]:[id number] PATIENT: LAUREN BETH Zoltan #[id number] (Continued) ------- MICROSCOPIC DESCRIPTION Microscopic examination is performed and the findings are incorporated into the finaldiagnosis. Please see diagnosis for findings. ----- Signed SIGNATURE ON FILE Vidhi Brewster 01/23/23 1439 END OF REPORT CBC W/AUTO [id number] 07:07:00 Test Item Value Reference Range Interpretation [...] DIFF REQUIRED NO DIFF/SCN CRITERIA SLIDE R GAYLAW (test code = MDIFF) CONSISTA NT WITH AUTO DIFFERENTI AL. BASIC METABOLIC [id number] 04:40:00 Test Item Value Reference Range Interpretation [...] L = CA) - CT ABD PELVIS [id number] 13:04:00 [facility] 1985 Sex: F Name: LAUREN BETH [facility] : 1985 Age/S: 37 / F [id number] Unit #: [id number] Loc: [place] [address] Phys: Jessica Arias Acct: [id number] Dis Date: Status: REG ER PHONE #: [phone] Exam Date: 01/20/2023 1247 FAX #: Reason: RLQ pain EXAMS: CPT: [id number] CT ABD PELVIS W/CONT 51703 CT abdomen and pelvis with contrast 01/20/2023 CLINICAL INDICATION: Abdominal painCOMPARISON: 08/07/2021 LOCATION: W1 TECHNIQUE: Helical CT axial imaging of the abdomen and pelvis wasperformed following the administration of intravenous contrast. Coronal and sagittal reformatted images were obtained. One or more of the following dose reduction techniques were used: Automated exposure control, adjustment of the mA and/or kV according to patient size, and/or utilization of iterative reconstruction technique. FINDINGS: Lower thorax: Bibasilar linear atelectasis. Hepatobiliary: Unremarkable. Gallbladder: Surgically absent. Spleen: Unremarkable. Pancreas: Unremarkable. Kidneys: Unrem arkable. Adrenals: Unremarkable. Lymph nodes: Unremarkable. Vessels: Unremarkable. Peritoneum/retroperitoneum: Periappendiceal fat stranding. Pelvic organs/bladder: Unremarkable. Bowel: Appendiceal dilation to 19 mm. Prior bariatric surgery. Bones/soft tissues: Chronic appearing degenerative changes in the skeleton. IMPRESSION: Appendicitis. Findings were discussed with Dr. Haque on 01/20/2023 at 1300. at 1304 Reported and signed by: Bobby Flores M.D. PAGE 1 Signed Report (CONTINUED) Name: LAUREN BETH [place] : 1985 Age/S: 37 / F [address] [place] Unit #: [id number] Loc: [place] [address] Phys: Jessica Arias Acct: [id number] Dis Date: Status: REG ER PHONE #: [phone] Exam Date: 01/20/2023 1247 FAX #: Reason: RLQ pain EXAMS: CPT: [id number] CT ABD PELVIS W/CONT 86034 (Continued) CC: Maco Lewis MD; Jeison Haque DO; Jessica MUNOZ Technologist:Dulce Kate, RT(R) CTDI: DLP: Trnscb Date/Time: 01/20/2023 (1304) [email or web address] Orig Print D/T: S: 01/20/2023 (1307) PAGE 2 Signed ReportCOMPREHENSIVE METABOLIC [id number] 12:28:00 Test Item Value Reference Range Interpretation [...] TOTAL (test code = ALKP) HCG SERUM [id number] 12:23:00 Test Item Value Reference Range Interpretation Comments HCG SERUM QUAL (test SERUM NEGATIVE SCREEN NEGATIVE code = HCGQL) UA RFLX MICR CULT IF [id number] 11:58:00 Test Item Value Reference Range Interpretation [...] DIFF/SCN CRITERIA = MDIFF) COMP. METABOLIC PANEL (64864)2022-12-16 23:24:15 Test Item Value Reference Range Interpretation Comments NA (test code = 140 mmol/L 135-145 [id number]) K (test code = 4.6 mmol/L 3.5-5.0 [id number]) CL (test code = 108 mmol/L 98-108 [id number]) CO2 TOTAL (test code = 18 mmol/L 23-31 L 5089122573) AGAP (test code = 14 2-16 4493032350) BUN (test code = 9 mg/dL 7-23 4231962765) GLUCOSE (test code = 83 mg/dL 70-110 2827863543) CREATININE (test code = 0.55 mg/dL 0.50-1.04 7131297914) TOTAL BILI (test code = 1.0 mg/dL 0.1-1.2 2889161133) CALCIUM (test code = 9.3 mg/dL 8.6-10.6 9672446633) T PROTEIN (test code = 8.2 g/dL 6.3-8.2 6133431490) ALBUMIN (test code = 4.8 g/dL 3.5-5.0 7716930618) ALK PHOS (test code = 89 U/L 34-122 9659631226) ALTv (test code = 21 U/L 5-35 1742-6) AST(SGOT) (test code = 34 U/L 13-40 8254917042) eGFR (test code = 125.1 mL/min/1.73m2 0191462585) RENZO (test code = RENZO) Association of [...] tests). Lab Interpretation Abnormal (test code = 00813-1) [facility] [id number] 23:22:04 Test Item Value Reference Range Interpretation Comments PREG SERUM (test code Negative = 0903599813) RENZO (test code = RENZO) Less than 10 IU/L. ?If low titer or ectopic is suspected, resubmit specimen in 48-72 hours. [facility] WITH [id number] 22:51:12 Test Item Value Reference Range Interpretation Comments WBC (test code = 12.44 See_Comment H [Automated 2828-2) message] The sy stem which generated this result transmitted reference range : 4.30 - 11.10 10*3/?L. The reference range was not used to interpret this result as normal/abnormal . RBC (test code = 4.69 See_Comment [Automated 789-8) message] The sy stem [...] RDW-SD (test code = 43.8 fL 39.0-49.9 03486-5) RDW-CV (test code = 13.9 % 12.0-15.5 788-0) PLT (test code = 316 See_Comment [Automated 777-3) message] The sy stem which generated this result transmitted reference range : 166 - 358 10*3/ ?L. The reference r bruce was not used to interpret this result as normal/abnormal . MPV (test code = 8.9 fL 9.5-12.9 L 51010-3) NRBC/100 WBC (test 0.0 See_Comment [Automat ed code = 6224727533) message] The system which generated this result transmitted reference range : 0.0 - 10.0 /100 WBCs. The refer ence range was not u sed to interpret th is result as normal/abnormal . NRBC x10^3 (test code See_Comment [Auto mated = 8839608092) message] The s ystem which generated this result transmitted reference range : 10*3/?L. The reference range was not used to interpret this result as normal/abnormal . GRAN MAT (NEUT) % 75.8 % (test code = 770-8) IMM GRAN % (test code 0.70 % = 1759609460) LYMPH % (test code = 16.5 % 736-9) MONO % (test code = 5.1 % 5905-5) EOS % (test code = 1.6 % 713-8) BASO % (test code = 0.3 % 706-2) GRAN MAT x10^3(ANC) 9.42 10*3/uL 1.88-7.09 H (test code = 8582098143) IMM GRAN x10^3 (test 0.09 10*3/uL 0.00-0.06 H code = 9416467075) LYMPH x10^3 (test code 2.05 10*3/uL 1.32-3.29 = 731-0) MONO x10^3 (test code 0.64 10*3/uL 0.33-0.92 = 742-7) EOS x10^3 (test code = 0.20 10*3/uL 0.03-0.39 711-2) BASO x10^3 (test code 0.04 10*3/uL 0.01-0.07 = 704-7) Lab Interpretation Abnormal (test code = 11546-2) [facility] [id number] 04:40:00 Test Item Value Reference Range Interpretation Comments POCT PREG (test code = 1605) Negative On board controls acceptable with Yes C Line (test code = 3574) POCT PREG LOT # (test code = 3575) [id number] POCT PREG TEST DATE (test 02/06/2024 code = 3576) Lab Interpretation (test code = Normal 99721-6) [facility] METABOLIC PANEL (33993)2022-10-26 04:29:54 Test Item Value Reference Range Interpretation Comments NA (test code = 138 mmol/L 135-145 5439016290) K (test code = 4.0 mmol/L 3.5-5.0 5424796043) CL (test code = 110 mmol/L 98-108 H 2007929852) CO2 TOTAL (test code = 19 mmol/L 23-31 L 0490478607) AGAP (test code = 9 2-16 5366594663) BUN (test code = 13 mg/dL 7-23 2346497619) GLUCOSE (test code = 155 mg/dL 70-110 H 6996013878) CREATININE (test code = 0.84 mg/dL 0.50-1.04 6638626740) TOTAL BILI (test code = 0.3 mg/dL 0.1-1.4 1115977989) CALCIUM (test code = 8.7 mg/dL 8.6-10.6 8876204754) T PROTEIN (test code = 6.6 g/dL 6.3-8.2 0171222571) ALBUMIN (test code = 4.1 g/dL 3.5-5.0 7934109289) ALK PHOS (test code = 79 U/L 34-122 1398066267) ALTv (test code = 24 U/L 5-35 1742-6) AST(SGOT) (test code = 24 U/L 13-40 2965404620) eGFR (test code = 76.7 mL/min/1.73m2 9779286649) RENZO (test code = RENZO) Association of [...] tests). Lab Interpretation Abnormal (test code = 60360-2) [facility] 04:29:14 Test Item Value Reference Range Interpretation Comments LIPASE (test code = 0553258349) 96 U/L 0-220 Lab Interpretation (test code = Normal 27470-0) [facility] WITH [id number] 04:16:10 Test Item Value Reference Range Interpretation Comments WBC (test code = 10.69 See_Comment [Automated 6690-2) message] The sy stem which generated this result transmitted reference range : 4.30 - 11.10 10*3/?L. The reference range was not used to interpret this result as normal/abnormal . RBC (test code = 4.25 See_Comment [Automated 789-8) message] The sy stem [...] RDW-SD (test code = 41.8 fL 39.0-49.9 80399-4) RDW-CV (test code = 13.0 % 12.0-15.5 788-0) PLT (test code = 305 See_Comment [Automated 777-3) message] The sy stem which generated this result transmitted reference range : 166 - 358 10*3/ ?L. The reference r bruce was not used to interpret this result as normal/abnormal . MPV (test code = 9.1 fL 9.5-12.9 L 32630-7) NRBC/100 WBC (test 0.0 See_Comment [Automat ed code = 8483710334) message] The system which generated this result transmitted reference range : 0.0 - 10.0 /100 WBCs. The refer ence range was not u sed to interpret th is result as normal/abnormal . NRBC x10^3 (test code See_Comment [Auto mated = 7386134436) message] The s [employer] ENT[employer] which generated this result transmitted reference range : 10*3/?L. The reference range was not used to interpret this result as normal/abnormal . GRAN MAT (NEUT) % 55.4 % (test code = 770-8) IMM GRAN % (test code 0.80 % = 5449677447) LYMPH % (test code = 33.2 % 736-9) MONO % (test code = 4.2 % 5905-5) EOS % (test code = 5.8 % 713-8) BASO % (test code = 0.6 % 706-2) GRAN MAT x10^3(ANC) 5.92 10*3/uL 1.88-7.09 (test code = 3608848401) IMM GRAN x10^3 (test 0.09 10*3/uL 0.00-0.06 H code = 5244348324) LYMPH x10^3 (test code 3.55 10*3/uL 1.32-3.29 H = 731-0) MONO x10^3 (test code 0.45 10*3/uL 0.33-0.92 = 742-7) EOS x10^3 (test code = 0.62 10*3/uL 0.03-0.39 H 711-2) BASO x10^3 (test code 0.06 10*3/uL 0.01-0.07 = 704-7) Lab Interpretation Abnormal (test code = 53039-3) [facility] SARS-COV-2 ANTIGEN (BINAX NOW)2022-06-13 23:43:00 Test Item Value Reference Range Interpretation Comments POCT SARS-COV-2 ANTIGEN (test code = Positive Not Detected A 51858-5) On board controls acceptable with C Yes Line (test code = 3574) Lab Interpretation (test code = Abnormal 33843-7) [facility]- [facility] SHOULDER 2 + V [id number] 16:42:00 [facility] 1985 Sex: F Patient Name: LAUREN BETH Unit No: [id number] EXAMS: CPT CODE: [id number] XR SHOULDER 2 + [place] [address] Left shoulder 3 views COMMENT: There is no evidence for fracture or subluxation. No focal bony lesions are seen. at 1642 Reported and signed by: Angelo Hardin MD CC: Truman Quintero MD Technologist: RT Reji.(R) Transcribed D/ (1641) VereniceJCL [facility] NAME: LAUREN BETH [address] [place] [address] PHYS: Truman Alfaro MD : 1985 AGE: 36 SEX: F [place], [place] [address] LOC: JOHNNIE PHONE #: [phone] EXAM DATE: 04/23/2022 STATUS: DEP ER FAX #: [phone] RAD #: D/C DTPAGE 1 Signed Report Patient Name: LAUREN BETH Unit No: [id number] EXAMS: CPT CODE: [id number] XR SHOULDER 2 + [place] [address] (Continued) Orig Print D/T: S: 04/23/2022 (1644) [facility] NAME: LAUREN BETH [address] [facility] PHYS: Truman Alfaro MD : 1985 AGE: 36 SEX: [place], [place] [address] LOC: JOHNNIE PHONE #: [phone] EXAM DATE: 04/23/2022 STATUS: DEP ER FAX #: [phone] RAD #: D/C DT PAGE 2 Signed ReportCOMP. METABOLIC PANEL (37561)2022-02-19 14:56:05 Test Item Value Reference Range Interpretation Comments NA (test code = 137 mmol/L 135-145 9003492119) K (test code = 4.2 mmol/L 3.5-5 8922391820) CL (test code = 108 mmol/L 98-108 6734281088) CO2 TOTAL (test code = 19 mmol/L 23-31 L 4134304619) AGAP (test code = 2-16 1491367168) BUN (test code = 14 mg/dL 7-23 5009916274) GLUCOSE (test code = 133 mg/dL 70-110 H 5813577539) CREATININE (test code = 0.56 mg/dL 0.5-1.04 0871406946) TOTAL BILI (test code = 0.4 mg/dL 0.1-1.2 7815701960) CALCIUM (test code = 8.9 mg/dL 8.6-10.6 4411449199) T PROTEIN (test code = 6.5 g/dL 6.3-8.2 4207309671) ALBUMIN (test code = 4.0 g/dL 3.5-5 3602654686) ALK PHOS (test code = 84 U/L 34-122 4795781870) ALTv (test code = 23 U/L 5-35 1742-6) AST(SGOT) (test code = 24 U/L 13-40 2684982693) eGFR (test code = mL/min/1.73m2 6295590172) RENZO (test code = RENZO) Association of [...] tests). Lab Interpretation Abnormal (test code = 61279-3) [facility] 14:55:44 Test Item Value Reference Range Interpretation Comments LIPASE (test code = 1435014574) 81 U/L 0-220 Lab Interpretation (test code = Normal 73662-8) [facility] WITH [id number] 14:36:26 Test Item Value Reference Range Interpretation Comments WBC (test code = See_Comment [Automated 5590-2) message] The sy stem which generated this result transmitted reference range : 4.30 - 11.10 10*3/?L. The reference range was not used to interpret this result as normal/abnormal . RBC (test code = See_Comment [Automated 141-8) message] The sy stem which generated this [...] RDW-SD (test code = 43.9 fL 39-49.9 47109-9) RDW-CV (test code = 13.7 % 12-15.5 788-0) PLT (test code = See_Comment [Automated 777-3) message] The sy stem which generated this result transmitted reference range : 166 - 358 10*3/ ?L. The reference r bruce was not used to interpret this result as normal/abnormal . MPV (test code = 8.5 fL 9.5-12.9 L 62324-6) NRBC/100 WBC (test See_Comment [Automat ed code = 6222120004) message] The system which generated this result transmitted reference range : 0.0 - 10.0 /100 WBCs. The refer ence range was not u sed to interpret th is result as normal/abnormal . NRBC x10^3 (test code See_Comment [Auto mated = 3097438792) message] The s ystem which generated this result transmitted reference range : 10*3/?L. The reference range was not used to interpret this result as normal/abnormal . GRAN MAT (NEUT) % 58.7 % (test code = 770-8) IMM GRAN % (test code 1.10 % = 1568642136) LYMPH % (test code = 31.6 % 736-9) MONO % (test code = 6.8 % 5905-5) EOS % (test code = 1.4 % 713-8) BASO % (test code = 0.4 % 706-2) GRAN MAT x10^3(ANC) 3.30 10*3/uL 1.88-7.09 (test code = 1362911733) IMM GRAN x10^3 (test 0.06 10*3/uL 0-0.06 code = 1061889051) LYMPH x10^3 (test code 1.77 10*3/uL 1.32-3.29 = 731-0) MONO x10^3 (test code 0.38 10*3/uL 0.33-0.92 = 742-7) EOS x10^3 (test code = 0.08 10*3/uL 0.03-0.39 711-2) BASO x10^3 (test code 0.01-0.07 = 704-7) Lab Interpretation Abnormal (test code = 13876-8) [facility] MOLECULAR [id number] 22:58:14 Test Item Value Reference Range Interpretation Comments POCT Molecular FluA (test code = Negative Negative 85522-7) POCT Molecular FluB (test code = Negative Negative 29839-9) Lab Interpretation (test code = Normal 07920-0) [facility] Hospital[facility]AT[facility] FUNCTION PANEL (LIVER)2021-10-16 13:57:00 Test Item [...] (test code = 0.2 mg/dl 0.0-1.1 IBIL) [id number] 13:57:00 Test Item Value Reference Range Interpretation Comments Lipase (test code = LIPA) 114 U/L 73-393 STLAMYLASE, [id number] 13:57:00 Test Item Value Reference Range Interpretation Comments Amylase (test code = AMYL) 51 U/L 25-115 [facility] CHEM [id number] 22:45:00 Test Item Value Reference Range Interpretation [...] = CO2) 22.1 mmol/l 24.0-29.[address] [facility] CBC WITH AUTO [id number] 22:43:00 Test Item Value Reference Range Interpretation [...] = IG%) 0.2 % 0.0-0.4 STLMLHEPATIC FUNCTION [id number] 13:03:00 Test Item Value Reference Range Interpretation [...] 96 Unit/L 45-117 N code = ALKP) [id number] 13:03:00 Test Item Value Reference Range Interpretation Comments LIPASE (test code = LIP) 83 Unit/L 114-286 L BASIC METABOLIC [id number] 13:03:00 Test Item Value Reference Range Interpretation [...] 8.5-10.1 N UA RFLX MICR CULT IF [id number] 12:44:00 Test Item Value Reference Range Interpretation [...] OF URINE: CLEAN CATCH- CT ABD PELVIS W/[id number] 12:27:00 [facility] 1985 Sex: F Name: LAUREN BETH [facility] : 1985 Age/S: 36 / F [address] [facility] [place] Unit #: [id number]: Julián Holcomb [address] Phys: Marco Hilton NP Acct: [id number] Dis Date: Status: REG ER PHONE #:[phone] Exam Date: 08/07/2021 1223 FAX #: Reason: LLQ ABD PAIN EXAMS: CPT: [id number] CT ABD PELVIS W/CONT 52322 EXAM: CT ABDOMEN AND PELVIS WITH CONTRAST. [...] BETH : 1985 Age/S: 36 / F [address] [address] [place] Unit #: [id number] Loc: [place] [address] Phys: Marco Hilton NP Acct: [id number] Dis Date: Status: REG ER PHONE #: [phone] Exam Date: 08/07/2021 1223 FAX #: Reason: LLQ ABD PAIN EXAMS: CPT: [id number] CT ABD PELVIS W/CONT 09639 <Continued> at 1227 Reportedand signed by: Alma Cartwright M.D. CC: Olga Clements DO; Marco Hilton NP Technologist:RT Danyelle(R) CTDI: DLP: Trnscb Date/Time: 08/07/2021 (1227) VereniceMD16 Orig Print D/T: S: 08/07/2021 (1271) PAGE 2 Signed ReportCBC W/AUTO [id number] 12:23:00 Test Item Value Reference Range Interpretation [...] DIFF/SCN CRITERIA = MDIFF) CORONAVIRUS 2019 (IN [place])(3HR)2021-03-24 17:04:00 Test Item Value Reference Range Interpretation [...] contact the [facility] at [phone]. [id number] 12:37:00 Test Item Value Reference Range Interpretation [...] 0.5-1.3 code = CREA) EGFR if >60 Chinese (test code mL/min/1.73m\\ = EGFRAA) S\\2 EGFR if Non- >60 Estimate d Glomerular Chinese (test code mL/min/1.73m\\ Filtrat ion Rate (eGFR) [...] and management of c hronic kidney failure. [facility] [id number] 12:11:00 Test Item Value Reference Range Interpretation Comments Troponin-I (test 0.00 ng/ml 0.00-0.08 The 99th Pe rcentile URL is code = TROP) 0.08 ng/mL for the Johnson iStat Troponin I. The Joint Society of Cardiology/Amer [employer] of Card iology (ESC/ACC) and t [facility] Academy of Clin ical Biochemistry and[facility] of Laboratory Prac tices (NACB) recommen ds [...] after the clini felipa event. STLMLPT AND [id number] 12:09:00 Test Item Value Reference Range Interpretation Comments Protime (test code 9.5 seconds 9.5-12.1 = PT) INR (test code = 0.9 0.9-1.1 INR results are intended INR) ONLY to monitor Oral Anticoagulant t herapy in stablized patie nts. The INR Therapeutic Range is 2.0 - 3.0 Patie nts with a mechanical he art, the INR Range is 2. 5 - 3.5 [id number] 12:09:00 Test Item Value Reference Range Interpretation Comments aPTT (test code = PTT) 22.3 seconds 23.9-30.7 L [facility] LAB CBC WITH AUTO [id number] 11:57:00 Test Item Value Reference Range Interpretation [...] 0.3 % 0.0-0.4 STLMLXR CHEST AP/PA 1 [id number] 11:33:32 [facility])Name: LAUREN BETH : 1985 Sex: FProcedure: XR CHEST AP/PA 1 VIEWOrder Date: 03/24/2021 10:57 AMOrdering Provider: REHAN COTTON Clinical Indication: [id number]: DyspneaComparison: September 30, 2018Findings:Cardiac size is normal.Pulmonary vasculature is normal.Mediastinal contour is normal.Aortic contour is normal.No acute infiltrates or effusions.There is no mass or pneumothorax.There is no evidence of active tuberculosis.There is no acute skeletal abnormality.Impression: Negative AP view of the chest.This final report was electronically signed by Dr Farzad Dewitt MD 111:28 AMDictated By: FARZAD DEWITTDate: 03/24/2021 11:28STLML CULTURE, [id number] 08:00:00Specimen: Urine SpecimensCollected: 03/10/2021 11:50 Status: Final Last Updated: 03/12/2021 08:00 CULTURE (Final) (Final) Very Few Mixed Body Gabriela Isolated No Pathogens IsolatedSTLMLURINALYSIS WITH [id number] 12:57:00 Test Item Value Reference Range Interpretation Comments Color (test code = Light-Yellow UCOLR) Clarity (test code = Cloudy UCLAR) Glucose (test code = NEGATIVE NEGATIVE N UGLUC) Bilirubin (test code NEGATIVE NEGATIVE N = UBILI) Ketones (test code = NEGATIVE NEGATIVE N UKET) Specific Franklin 1.015 1.005-1.030 A (test code = USPGR) Blood (test code = NEGATIVE NEGATIVE N UBLD) PH (test code = UPH) 7.0 4.5-8.0 A Protein (test code = NEGATIVE NEGATIVE N UPROT) Urobilinogen (test 0.2 See_Comment N [Automat ed message] code = U UROB) The system [employer] generated this result transmit michael reference range [...] = NSE) STLMLSTAT LAB CBC WITH AUTO [id number] 12:10:00 Test Item Value Reference Range Interpretation [...] = IG%) 0.8 % 0.0-0.[address] [facility] CHEM [id number] 12:08:00 Test Item Value Reference Range Interpretation [...] = CREA) 0.5 mg/dl 0.6-1.3 L STLMLCULTURE, [id number] 08:26:00Specimen: Urine SpecimensCollected: 02/23/2021 08:35 Status: Final Last Updated: 02/24/2021 08:26 CULTURE (Final) (Final) Many Mixed Body Gabriela Isolated No Pathogens IsolatedSTLMLCT ABDOMEN/PELVIS W/[id number] 11:40:43 [facility])Name: LAUREN BETH : 1985 Sex: FProcedure: CT ABDOMEN/PELVIS W/CONTRASTOrder date: 02/23/2021 10:08 AMOrdering Provider: REHAN Farrellinical Indication: [id number]: Right lower quadrant painComparison: November 14, 2020Technique: [...] MD 111:35 AMDictated By: WILEY VELÁZQUEZDate: 02/23/2021 11:[id number] 10:44:00 Test Item Value Reference Range Interpretation Comments Lipase (test code = LIPA) 86 U/L 73-393 STLMLURINALYSIS WITH [id number] 08:58:00 Test Item Value Reference Range Interpretation Comments Color (test code = Light-Yellow UCOLR) Clarity (test code = Clear UCLAR) Glucose (test code = NEGATIVE NEGATIVE N UGLUC) Bilirubin (test code NEGATIVE NEGATIVE N = UBILI) Ketones (test code = NEGATIVE NEGATIVE N UKET) Specific Franklin 1.020 1.005-1.030 A (test code = USPGR) Blood (test code = NEGATIVE NEGATIVE N UBLD) PH (test code = UPH) 6.0 4.5-8.0 A Protein (test code = NEGATIVE NEGATIVE N UPROT) Urobilinogen (test 0.2 See_Comment N [Automat ed message] code = U UROB) The system [facility] generated this result transmit [...] 41-50 0-10 A (test code = SQEP) [facility] WITH AUTO [id number] 08:52:00 Test Item Value Reference Range Interpretation [...] (test code = IG%) 0.3 % 0.0-0.4 [facility] CHEM [id number] 08:52:00 Test Item Value Reference Range Interpretation [...] code = CREA) 0.6 mg/dl 0.6-1.3 [facility] CBC WITH AUTO [id number] 02:37:00 Test Item Value Reference Range Interpretation [...] A value of 55 was entered by [id number] on 01/10/2021 02:3 7 Lymphocytes (test 43 % 13-42 H No previou s value code = LYMPH) was reported. A value of 43 was entered by [id number] on 01/10/2021 02:3 7 Monocytes (test 1 % 4-14 L No previous value code = MONOS) was reported. A value of 1 was entered by [id number] on 01/10/2021 02:3 7 Basophils (test 1 % 0-1 No previous value code = BASO) was reported. A value of 1 was entered by [id number] on 01/10/2021 02:3 7 Normal Morphology Normal WBC RBC Normal RBC \\T\\ N No pre vious value (test code = NRCM) and Platelet WBC was repor michael. A Morphology Morphology,Normal value of N ormal WBC RBC and WBC RBC and Platelet Platelet Morphology Morphology was entered by [id number] on 01/10/2021 02:3 7 STLMLAMYLASE, [id number] 02:14:00 Test Item Value Reference Range Interpretation Comments Amylase (test code = AMYL) 46 U/L 25-115 [id number] 02:14:00 Test Item Value Reference Range Interpretation Comments Lipase (test code = LIPA) 115 U/L 73-393 STLMLURINALYSIS WITH [id number] 02:07:00 Test Item Value Reference Range Interpretation Comments Color (test code = Light-Yellow UCOLR) Clarity (test code = Cloudy UCLAR) Glucose (test code = NEGATIVE NEGATIVE N UGLUC) Bilirubin (test code NEGATIVE NEGATIVE N = UBILI) Ketones (test code = NEGATIVE NEGATIVE N UKET) Specific Franklin 1.025 1.005-1.030 A (test code = USPGR) Blood (test code = NEGATIVE NEGATIVE N UBLD) PH (test code = UPH) 6.0 4.5-8.0 A Protein (test code = NEGATIVE NEGATIVE N UPROT) Urobilinogen (test 0.2 See_Comment N [Automat ed message] code = U UROB) The system [facility] generated this result transmit [...] A Epithelial (test code = NSE) [facility] CHEM [id number] 01:50:00 Test Item Value Reference Range Interpretation [...] [facility] W/[id number] 03:46:00 [facility] LAUREN BETH : 1985 Sex: F FAX: Annemarie Tesfaye [phone] [place]: St: REG Name: LAUREN BETH [facility] : 1985 Age/S: 35/F [address] Unit: [id number] Loc: [place] [address] Phys: Annemarie Tesfaye [employer] Acct: [id number] Dis Date: Status: REG ER PHONE #: [phone] Exam Date: 12/13/2020 0325 FAX #: [phone]: DIFFUSE ABD PAIN WORSE RLQ, HX APPY, ROSE EXAMS: CPT CODE: [id number] CT ABD PELVIS W/CONT 64673 AFTER HOURS SERVICE ON: 12/13/2020 3:44 AM [...] the stomach, cholecystectomy, appendectomy and hysterectomy. at 1566 Reported and signed by: Neo Huber MD PAGE 1 Signed Report (CONTINUED) FAX: Annemarie Tesfaye [phone] [place]: St: REG------- Name: LAUREN BETH [facility] : 1985 Age/S: 35/F [address] Unit: [id number] Loc: [place] [address] Phys: Annemarie Tesfaye NP Acct: [id number] Dis Date: Status: REG ER PHONE #: [phone] ExamDate: 12/13/2020 0325 FAX #: [phone] Reason: DIFFUSE ABD PAIN WORSE RLQ, HX APPY, ROSE EXAMS:CPT CODE: [id number] CT ABD PELVIS W/CONT 56071 <Continued> CC: Annemarie Tesfaye NP Technologist: PAMELA KRISHNAMURTHY; Jessi SANCHEZ JR Trnscrd Dt/Tm: 12/13/2020 (034) [id number] OrigPrint D/T: S: 12/13/2020 (9259 PAGE 2 Signed ReportCOMPREHENSIVE METABOLIC [id number] 03:32:00 Test Item Value Reference Range Interpretation [...] U/L 38-126 N (test code = ALKP) [id number] 03:32:00 Test Item Value Reference Range Interpretation Comments LIPASE (test code = LIP) 82 U/L 23-300 N BEDSIDE [id number] 03:24:00 Test Item Value Reference Range Interpretation Comments BEDSIDE CREATININE (test code = 0.60 mg/dL 0.51-1.19 N CREATBED) CBC W/AUTO [id number] 03:14:00 Test Item Value Reference Range Interpretation [...] 0.0-0.1 N UA RFLX MICR CULT IF [id number] 02:59:00 Test Item Value Reference Range Interpretation [...] OF URINE: [facility] CBC WITH AUTO [id number] 15:12:00 Test Item Value Reference Range Interpretation [...] A value of 63 was entered by [employer] 82 on 12/12/2020 15:12 Bands (test code = 2 % 0-2 No previo us value BANDM) was reported. A value of 2 was entered by [employer] on 12/12/2020 15:12 Lymphocytes (test 26 % 13-42 No previou s value code = LYMPH) was reported. A value of 26 was entered by [employer] on 12/12/2020 15:12 Monocytes (test code 4 % 4-14 No prev ious value = MONOS) was reported. A value of 4 was entered by [employer] 82 on 12/12/2020 15:12 Eosinophils (test 2 % 1-3 No previou s value code = EOS) was reported. A value of 2 was entered by [employer] on 12/12/2020 15:12 Atypical Lymphocyte 3 % No previ ous value (test code = ATPLYM) was rep orted. A value of 3 was entered by Tomveyi Bidamon on 12/12/2020 15:12 [facility] LAB CHEM [id number] 14:08:00 Test Item Value Reference Range Interpretation [...] 0.5 mg/dl 0.6-1.3 L [facility] URINALYSIS WITHOUT [id number] 12:08:00 Test Item Value Reference Range Interpretation Comments Color (test code = Light-Yellow UCOLR) Clarity (test code = Cloudy UCLAR) Glucose (test code = NEGATIVE NEGATIVE N UGLUC) Bilirubin (test code NEGATIVE NEGATIVE N = UBILI) Ketones (test code = NEGATIVE NEGATIVE N UKET) Specific Franklin 1.015 1.005-1.030 A (test code = USPGR) Blood (test code = NEGATIVE NEGATIVE N UBLD) PH (test code = UPH) 7.0 4.5-8.0 A Protein (test code = NEGATIVE NEGATIVE N UPROT) Urobilinogen (test 0.2 See_Comment N [Automat ed message] code = U UROB) The system [facility] generated this result transmit [...] [facility] HospitalURINALYSIS WITH [id number] 08:31:00 Test Item Value Reference Range Interpretation Comments Color (test code = Light-Yellow UCOLR) Clarity (test code = Clear UCLAR) Glucose (test code = NEGATIVE NEGATIVE N UGLUC) Bilirubin (test code NEGATIVE NEGATIVE N = UBILI) Ketones (test code = NEGATIVE NEGATIVE N UKET) Specific Franklin 1.020 1.005-1.030 A (test code = USPGR) Blood (test code = NEGATIVE NEGATIVE N UBLD) PH (test code = UPH) 6.5 4.5-8.0 A Protein (test code = NEGATIVE NEGATIVE N UPROT) Urobilinogen (test 0.2 See_Comment N [Automat ed message] code = U UROB) The system [employer] generated this result transmit michael reference range [...] TNTC 0-10 A (test code = SQEP) [facility] LAB CHEM [id number] 08:27:00 Test Item Value Reference Range Interpretation [...] 0.5 mg/dl 0.6-1.3 L [facility] LAB CBC WITH AUTO [id number] 08:26:00 Test Item Value Reference Range Interpretation [...] (test code = IG%) 0.4 % 0.0-0.4 [facility] 2 VIEWS FLAT / [id number] 08:18:50NANCY [facility])Name: LAUREN BETH : 1985 Sex: FProcedure: XR ABDOMEN 2 VIEWS FLAT / UPRIGHTOrder Date: 11/21/2020 7:43 AMOrdering Provider: REHAN Farrellinical Indication: [id number]: Abdominal painComparison: Nov 14 2020Findings:Bowel gas pattern is non-obstructive. No pneumoperitoneum.There is moderate volume stool burden.Surgical clips in the right upper quadrant of the abdomen.Impression:Nonobstructive bowel gas pattern.This final reportwas electronically signed by Dr Silver Benitez MD :13 AMDictated By: GLORY BENITEZKDate: 11/21/2020 08:13[facility]CT ABDOMEN/PELVIS W/O CONTRAST 2020-11-14 14:11:31 [facility]/)Name: LAUREN BETH : 1985 Sex: FProcedure: CT ABDOMEN/PELVIS W/O CONTRASTOrder Date: 11/14/2020 1:22 PMOrdering Provider: BILLY ACOSTA .Clinical Indication: [id number]: Right flank painComparison: Renal ultrasound November 08, [...] 12:05 PMDictated By: FARZAD DEWITTDate: 11/14/2020 14:05[facility] LAB , [id number] 13:31:00 Test Item Value Reference Range Interpretation Comments (Urine) (test code = Negative PREGU) ONLY AVAILABLE [address] [place] [address] LAB CHEM [id number] 11:09:00 Test Item Value Reference Range Interpretation [...] 0.5 mg/dl 0.6-1.3 L [facility] LAB URINALYSIS WITHOUT [id number] 11:08:00 Test Item Value Reference Range Interpretation Comments Color (test code = Yellow Lt. Yellow A UCOLR) Clarity (test code = Clear UCLAR) Glucose (test code = Negative Negative N UGLUC) Bilirubin (test code Negative Negative N = UBILI) Ketones (test code = Negative Negative N UKET) Specific Franklin 1.025 1.005-1.030 A (test code = USPGR) Blood (test code = Trace-intact Negative A UBLD) PH (test code = UPH) 6.0 4.5-8.0 A Protein (test code = Negative Negative N UPROT) Urobilinogen (test 0.2 See_Comment N [Automat ed message] code = U UROB) The system [employer] generated this result transmit michael reference range : 0.2. The refere nce range was not u sed to interpret th is result as normal/abnormal . Nitrite (test code = Negative Negative N UNITR) Leukocyte Esterase Negative Negative N (test code = ULEUK) [facility] LAB CBC WITH AUTO [id number] 11:05:00 Test Item Value Reference Range Interpretation [...] (test code = IG%) 0.4 % 0.0-0.[address] [facility], [id number] 08:43:00Specimen: Urine SpecimensCollected: 11/08/2020 09:59 Status: Final Last Updated: 11/09/2020 08:43 CULTURE (Final) (Final) Few Mixed Body Gabriela Isolated No Pathogens IsolatedAsc[facility] RENAL & BLADDER (KIDNEYS)2020-11-08 12:00:28[facility]/)Name: DIEUDONNE BETHDAVIDE CARRILLO : 1985 Sex: FProcedure: US RENALOrder Date: 11/08/2020 9:55 AMOrdering Provider: REHAN COTTONClinical Indication: N13.2: HYDRONEPHROSIS WITH RENAL AND URETERAL [...] AMDictated By: GLORY BENITEZKDate: 11/08/2020 11:54[facility]URINALYSIS WITH MICROSCOPIC 2020-11-08 10:58:00 Test Item Value Reference Range Interpretation Comments Color (test code = Yellow UCOLR) Clarity (test code = Clear UCLAR) Glucose (test code = NEGATIVE NEGATIVE N UGLUC) Bilirubin (test code = NEGATIVE NEGATIVE N UBILI) Ketones (test code = NEGATIVE NEGATIVE N UKET) Specific [place] (test 1.030 1.005-1.030 A code = USPGR) Blood (test code = NEGATIVE NEGATIVE N UBLD) PH (test code = UPH) 6.0 4.5-8.0 A Protein (test code = NEGATIVE NEGATIVE N UPROT) Urobilinogen (test code 0.2 See_Comment N [Au tomated message] = U UROB) The system [employer] generated this result transmitted ref erence range: [...] 51-74 0-10 A (test code = SQEP) [facility] HospitalstefanieMARY[facility], [id number] 08:13:00ER 17Specimen: Urine SpecimensCollected: 11/01/2020 01:10 Status: Final Last Updated: 11/02/2020 08:13 (1) ER 17 CULTURE (Final) (Final) Few Mixed Body Gabriela Isolated No Pathogens [facility]olatedRich[facility]-LufkinXR ABD SERIES W/PA CXR 2020-11-01 03:48:37 [facility] ([facility])Name: LAUREN BETH : 1985 [...] CDT.Dictated By: FILIPPO RAMOSDate: 11/01/2020 03:48[facility]ATERHEPATIC FUNCTION PANEL (LIVER)2020-11-01 02:14:00 Test Item Value [...] code = 0.1 mg/dl 0.0-1.1 IBIL) ER [address] [place] [address] LAB CHEM [id number] 01:57:00 Test Item Value Reference Range Interpretation [...] = CREA) 0.5 mg/dl 0.6-1.3 L ER [address] [place] [address]-fkinURINALYSIS WITH [id number] 01:56:00 Test Item Value Reference Range Interpretation Comments Color (test code = Light-Yellow UCOLR) Clarity (test code = Clear UCLAR) Glucose (test code = 50 NEGATIVE A UGLUC) Bilirubin (test code NEGATIVE NEGATIVE N = UBILI) Ketones (test code = NEGATIVE NEGATIVE N UKET) Specific Franklin 1.025 1.005-1.030 A (test code = USPGR) [...] 41-50 0-10 A (test code = SQEP) [address] LAB CBC WITH AUTO [id number] 01:55:00 Test Item Value Reference Range Interpretation [...] (test code = IG%) 0.4 % 0.0-0.4 [address] FUNCTION PANEL (LIVER)2020-10-05 01:26:00 Test Item [...] (test code = 0.1 mg/dl 0.0-1.1 IBIL) [address]-[id number] 01:26:00 Test Item Value Reference Range Interpretation Comments Lipase (test code = LIPA) 154 U/L 73-[address] LAB CHEM [id number] 01:15:00 Test Item Value Reference Range Interpretation [...] (test code = CREA) 0.6 mg/dl 0.6-1.[address] LAB , [id number] 01:14:00 Test Item Value Reference Range Interpretation Comments (Urine) (test code = Negative PREGU) [address] LAB CBC WITH AUTO [id number] 01:13:00 Test Item Value Reference Range Interpretation [...] = IG%) 0.9 % 0.0-0.4 H [address] [place], [place] [id number] 04:21:00 Test Item Value Reference Range Interpretation [...] code = 0.1 mg/dl 0.0-1.1 IBIL) [facility] HospitalAMYLASE, [id number] 04:21:00 Test Item Value Reference Range Interpretation Comments Amylase (test code = AMYL) 47 U/L 25-115 [facility]URINALYS[facility] WITH [id number] 03:06:00 Test Item Value Reference Range Interpretation Comments Color (test code = Light-Yellow UCOLR) Clarity (test code = Clear UCLAR) Glucose (test code = NEGATIVE NEGATIVE N UGLUC) Bilirubin (test code NEGATIVE NEGATIVE N = UBILI) Ketones (test code = TRACE NEGATIVE A UKET) Specific Franklin 1.025 1.005-1.030 A (test code = USPGR) Blood (test code = NEGATIVE NEGATIVE N UBLD) PH (test code = UPH) 5.5 4.5-8.0 A Protein (test code = NEGATIVE NEGATIVE N UPROT) Urobilinogen (test 0.2 See_Comment N [Automat ed message] code = U UROB) The system [facility] generated this result transmit [...] SEEN A Epithelial (test code = NSE) [facility] LAB CHEM [id number] 02:51:00 Test Item Value Reference Range Interpretation [...] CREA) 0.6 mg/dl 0.6-1.3 [facility] LAB CBC WITH AUTO [id number] 02:50:00 Test Item Value Reference Range Interpretation [...] % 0.0-0.4 H [facility] ABDOMEN 1 VIEW (KUB)2020-09-12 01:51:21 [facility]/[place])Name: LAUREN BETH : 1985 Sex: [...] CDT.Dictated By: CELESTINO ALLENDate: 09/12/2020 01:50[facility] [place] [facility] CBC WITH AUTO [id number] 01:29:00 Test Item Value Reference Range Interpretation [...] IG%) 0.4 % 0.0-0.4 [facility] LAB CHEM [id number] 01:28:00 Test Item Value Reference Range Interpretation [...] (test code = CREA) 0.6 mg/dl 0.6-1.3 [facility]inURINALYSIS WITH [id number] 03:04:00 Test Item Value Reference Range Interpretation Comments Color (test code = Yellow UCOLR) Clarity (test code = Clear UCLAR) Glucose (test code = 100 NEGATIVE A UGLUC) Bilirubin (test code = NEGATIVE NEGATIVE N UBILI) Ketones (test code = TRACE NEGATIVE A UKET) Specific [place] (test >=1.030 1.005-1.030 A code = USPGR) Blood (test code = NEGATIVE NEGATIVE N UBLD) PH (test code = UPH) 5.5 4.5-8.0 A Protein (test code = NEGATIVE NEGATIVE N UPROT) Urobilinogen (test code 0.2 See_Comment N [Au tomated message] = U UROB) The system [employer] generated this result transmitted ref erence range: [...] code = 3+ None Seen,Trace A UBACT) [facility]-[id number] 03:01:00 Test Item Value Reference Range Interpretation [...] ( 4 - SerumAlbumin)] EGFR if >60 Chinese (test code mL/min/1.73m\\ = EGFRAA) S\\2 EGFR if Non- >60 Estimate d Glomerular Chinese (test code mL/min/1.73m\\ Filtrat ion Rate (eGFR) [...] and management of c hronic kidney failure. [facility] HospitalOlszjx-[id number] 03:01:00 Test Item Value Reference Range Interpretation Comments Lipase (test code = LIPA) 145 U/L 73-393 [facility] LAB TEST, Serum Qualitative 2020-08-22 02:48:00 Test Item Value Reference Range Interpretation Comments (Serum) (test code = Negative PREGS) [facility] LAB CBC WITH AUTO [id number] 02:28:00 Test Item Value Reference Range Interpretation [...] code = 0.1 mg/dl 0.0-1.1 IBIL) ER [address] [place], [place] [address]Sbeptj-[id number] 02:59:00 Test Item Value Reference Range Interpretation Comments Lipase (test code = LIPA) 167 U/L 73-[address] [place] [address]-AltonURINALYSIS WITH [id number] 02:48:00 Test Item Value Reference Range Interpretation Comments Color (test code = UCOLR) Yellow Clarity (test code = UCLAR) Clear Glucose (test code = UGLUC) NEGATIVE NEGATIVE N Bilirubin (test code = UBILI) NEGATIVE NEGATIVE N Ketones (test code = UKET) NEGATIVE NEGATIVE N Specific [place] (test code = >=1.030 1.005-1.030 A USPGR) [...] code = UBACT) 4+ None Seen,Trace A [address]-[place]CT ABDOM[place]/PELVIS W/O [id number] 02:34:52ER 16 R/O KIDNEY STONE [facility] ([facility])Name: LAUREN BETH : [id number] Sex: FPROCEDURE INFORMATION:Exam: CT Abdomen And Pelvis [...] AM CDT.Dictated By: HOLLIS FERRERADate: 08/06/2020 02:34[facility] LAB CHEM 8 2020-08-06 02:29:00 Test [...] code = CREA) 0.4 mg/dl 0.6-1.[address] LAB CBC WITH AUTO [id number] 02:29:00 Test Item Value Reference Range Interpretation [...] = IG%) 0.7 % 0.0-0.4 H ER [address] [place], [place] [address]Ctzmqu-[id number] 09:31:00 Test Item Value Reference Range Interpretation [...] (test code = 0.3 mg/dl 0.0-1.1 IBIL) [facility] ABDOM[facility] 2 VIEWS FLAT / [id number] 09:22:50[facility] ([facility]/[place])Name: LAUREN BETH : [id number] Sex: FProcedure: XR ABDOMEN 2 VIEWS FLAT / UPRIGHTOrder Date: 07/19/2020 8:40 AMOrdering Provider: REHAN COTTON .Clinical Indication: [id number]: Abdominal painComparison: July 05, 2020Findings:Postoperative change consisting [...] MD :17 AMDictated By: FARZAD DEWITTDate: 07/19/2020 09:17[facility] LAB CHEM [id number] 09:10:00 Test Item Value Reference Range Interpretation [...] 0.5 mg/dl 0.6-1.3 L [facility] LAB CBC WITH AUTO [id number] 09:09:00 Test Item Value Reference Range Interpretation [...] 0.7 % 0.0-0.4 H [facility] LAB URINALYSIS WITHOUT [id number] 09:08:00 Test Item Value Reference Range Interpretation Comments Color (test code = UCOLR) Yellow Lt. Yellow A Clarity (test code = UCLAR) Clear Glucose (test code = UGLUC) Negative Negative N Bilirubin (test code = UBILI) Negative Negative N Ketones (test code = UKET) Negative Negative N Specific [place] (test code = USPGR) >=1.030 1.005-1.030 A Blood (test code = UBLD) Negative Negative N PH (test code = UPH) 6.0 4.5-8.0 A Protein (test code = UPROT) Negative Negative N Urobilinogen (test code = U UROB) 0.2 >0.2 N Nitrite (test code = UNITR) Negative Negative N Leukocyte Esterase (test code = Negative Negative N ULEUK) [facility]kinCULTURE, [id number] 08:00:00Specimen: Urine SpecimensCollected: 07/05/2020 03:00 Status: Final Last Updated: 07/07/2020 08:00 CULTURE (Final) (Final) No Growth After 48 HoursRichland Hospital-LufkinXR ABDOMEN 1 VIEW (KUB)2020-07-05 04:07:04 [facility]/)Name: LAUREN BETH : [id number] Sex: FPROCEDURE INFORMATION:Exam: XR Abdomen, 1 ViewExam [...] CDT.Dictated By: OSKAR CRANE: 07/05/2020 04:06[facility] , [id number] 03:54:00 Test Item Value Reference Range Interpretation Comments (Urine) (test code = Negative PREGU) [facility] LAB CHEM [id number] 03:53:00 Test Item Value Reference Range Interpretation [...] 0.5 mg/dl 0.6-1.3 L [facility] LAB CBC WITH AUTO [id number] 03:51:00 Test Item Value Reference Range Interpretation [...] (test code = IG%) 0.4 % 0.0-0.4 [facility]kinURINALYSIS WITH [id number] 03:33:00 Test Item Value Reference Range Interpretation Comments Color (test code = UCOLR) Yellow Clarity (test code = UCLAR) Clear Glucose (test code = UGLUC) NEGATIVE NEGATIVE N Bilirubin (test code = UBILI) Small NEGATIVE A Ketones (test code = UKET) TRACE NEGATIVE A Specific [place] (test code = USPGR) 1.020 1.005-1.030 A [...] code = UBACT) Trace None Seen,Trace N [facility]CT ABDOMEN/PELVIS W/[id number] 16:44:35 [facility])Name: LAUREN BETH : [id number] Sex: FProcedure: CT ABDOMEN/PELVIS W/CONTRASTOrder date: 06/07/2020 3:47 PMOrdering Provider: REHAN Farrellinical Indication: [id number]: Left flank painComparison: 06/07/20Technique: Multiple axial helical [...] PMDictated By: WILEY VELÁZQUEZDate: 06/07/2020 16:38[facility]ATERURINALYSIS WITH [id number] 15:22:00 Test Item Value Reference Range Interpretation Comments Color (test code = UCOLR) Yellow Clarity (test code = UCLAR) Clear Glucose (test code = UGLUC) NEGATIVE NEGATIVE N Bilirubin (test code = UBILI) NEGATIVE NEGATIVE N Ketones (test code = UKET) NEGATIVE NEGATIVE N Specific [place] (test code = USPGR) 1.020 1.005-1.030 A [...] Trace None Seen,Trace N [facility] LAB CHEM [id number] 15:10:00 Test Item Value Reference Range Interpretation [...] code = CREA) 0.4 mg/dl 0.6-1.3 L [facility] LAB CBC WITH AUTO [id number] 15:08:00 Test Item Value Reference Range Interpretation [...] = IG%) 0.5 % 0.0-0.4 H [facility]BD/ PELVIS W/O CON (RENAL STONE)2020-06-07 14:56:05[facility]/[place])Name: LAUREN BETH : [id number] Sex: FProcedure: CT ABD/ PELVIS W/O CON (RENAL STONE)Order date: 06/07/2020 2:18 PMOrdering Provider: REHAN Farrellinical Indication: [id number]: Left flank painComparison: 05/31/20TECHNIQUE: Using a helical [...] 06/07/20202:49PMDictated By: WILEY VELÁZQUEZDate: 06/07/2020 14:49[facility]CT ABDOMEN/PELVIS W/O [id number] 12:27:07NPO 4 hours. Do not withhold meds hyst [facility]/)Name: LAUREN BETH : [id number] Sex: FProcedure: CT ABDOMEN/PELVIS W/O CONTRASTOrder Date: 05/31/2020 10:25 AMOrdering Provider: ME ANN MARIE MCBRIDEClinical Indication: [id number]: Pain radiating to right flankComparison: March 20, [...] MD 05/31/202012:20 PMDictated By: FARZAD DEWITT.Date: 05/31/2020 12:20[facility]2020-12-01 11:48:00 Test Item Value Reference Range Interpretation Comments Lipase (test code = LIPA) 116 U/L 73-393 [facility] LAB URINALYSIS WITHOUT [id number] 10:59:00 Test Item Value Reference Range Interpretation Comments Color (test code = UCOLR) Light yellow Lt. Yellow A Clarity (test code = UCLAR) Clear Glucose (test code = UGLUC) Negative Negative N Bilirubin (test code = UBILI) Negative Negative N Ketones (test code = UKET) Negative Negative N Specific [place] (test code = 1.025 1.005-1.030 A USPGR) Blood (test code = UBLD) Negative Negative N PH (test code = UPH) 6.0 4.5-8.0 A Protein (test code = UPROT) Negative Negative N Urobilinogen (test code = U 0.2 >0.2 N UROB) Nitrite (test code = UNITR) Negative Negative N Leukocyte Esterase (test code = Negative Negative N ULEUK) [facility] LAB CBC WITH AUTO [id number] 10:58:00 Test Item Value Reference Range Interpretation [...] 0.5 % 0.0-0.4 H [facility] LAB CHEM [id number] 10:53:00 Test Item Value Reference Range Interpretation [...] code = CREA) 0.5 mg/dl 0.6-1.3 L [facility] 1 VIEW (KUB)2020-04-25 21:02:16 [facility]/)Name: LAUREN BETH : [id number] Sex: FPROCEDURE INFORMATION:Exam: XR Abdomen, 1 ViewExam [...] Dictated By: TEJAS RODRIGUEZ.Date: 04/25/2020 21:02[facility]WATERURINALYSIS WITH [id number] 18:57:00 Test Item Value Reference Range Interpretation Comments Color (test code = UCOLR) Yellow Lt. Yellow A Clarity (test code = UCLAR) Clear Glucose (test code = UGLUC) Negative Negative N Bilirubin (test code = UBILI) Negative Negative N Ketones (test code = UKET) Negative Negative N Specific [place] (test code = 1.020 1.005-1.030 A USPGR) [...] code = UBACT) 4+ None Seen,Trace A [facility] LAB CBC WITH AUTO [id number] 18:55:00 Test Item Value Reference Range Interpretation [...] of Platel et clumping was entered by [id number] on 04/25/2020 18:5 5 [facility] LAB CHEM [id number] 18:17:00 Test Item Value Reference Range Interpretation [...] code = CREA) 0.4 mg/dl 0.6-1.3 L [facility] HospitalkinCULTURE, ANAEROBE [id number] 15:20:00FIRST DRAW = 1 aerobic and 1 anerobic CultureSpecimen: BloodCollected: 03/20/2020 18:30 Status: Final Last Updated: 03/26/2020 15:19 (1) FIRST DRAW = 1 aerobic and 1 anerobic Culture CULTURE (Final) (Final) No Growth After 5 DaysRich[facility] Hospital-LufkinCULTURE, [id number] 15:20:00FIRST DRAW = 1 aerobic and 1 anerobic CultureSpecimen: BloodCollected: 03/20/2020 18:30 Status: Final Last Updated: 03/26/2020 15:19 (1) FIRST DRAW = 1 aerobic and 1 anerobic Culture CULTURE (Final) (Final) No Growth After 5 DaysRich[facility]kinCT ABDOMEN/PELVIS W/[id number] 21:46:442 weeks s/p adhesolysis. Vomiting/pain/fever. Please do CT with PO and IV contrastProcedures: CT ABDOMEN/PELVIS W/CONTRASTExam Date: 03/20/2020 6:04 PMOrdering Physician: REHAN Farrellinical Indication: [id number]: Abdominal painComparison: CT abdomen/pelvis, 02/25/20TECHNIQUE: Spiral multislice [...] 9:40 PMDictated By: ELMER PHAMDate:03/20/2020 21:40[facility]ATERHEPATIC FUNCTION PANEL (LIVER)2020-03-20 19:24:00 Test Item Value [...] (test code = 0.3 mg/dl 0.0-1.1 IBIL) [facility] HospitalkinLIPASE2020-09-20 19:24:00 Test Item Value Reference Range Interpretation Comments Lipase (test code = LIPA) 69 U/L 73-393 L [facility] HospitalVapiph-[id number] 19:24:00 Test Item Value Reference Range Interpretation Comments Magnesium (test code = MG) 2.0 mg/dl 1.6-2.6 [facility] LAB CHEM [id number] 18:43:00 Test Item Value Reference Range Interpretation [...] 0.5 mg/dl 0.6-1.3 L [facility] LAB LACTIC [id number] 18:42:00 Test Item Value Reference Range Interpretation Comments LACTATE (test code = 2.50 mmol/l 0.90-1.70 HH R&RB sy rene hassan rn LAC) @1842 [facility] LAB CBC WITH AUTO [id number] 18:41:00 Test Item Value Reference Range Interpretation [...] = IG%) 0.4 % 0.0-0.4 [facility]SP PERC PLMNT MIDLINE NO PORT [...] secured to the skin in the usual fashion.[employer] Operator images were recorded and stored in the [facility] fordocumentation. The patient tolerated the procedure well and there were noimmediate complications.Impression:1. Successful upper extremity vascular access.This final report was electronically signed by Dr Farzad Dewitt MD 03/15/20201:14 PMDictated By: FARZAD DEWITT.Date: 03/15/2020 13:14[facility] ([facility]SE)2020-03-13 21:03:00 Test Item [...] r esults recommend recol lection of specimen. [facility]kinXR ABD SERIES W/PA [id number] 17:33:07 Procedure: XR ABD SERIES W/PA CXROrder Date: 03/13/2020 4:25 PMOrdering Provider: DR KLINE TRMAYAClinical Indication: R10.0: ACUTE ABDOMENComparison: NoneFindings:Lungs are clear. Heart size is withinnormal limits.Abdomen views show non-obstructive bowel gas pattern. No pneumoperitoneum.Moderate volume stool burden.Surgical clips in the right upper quadrant of the abdomen.Impression:No acute pulmonary process.Nonobstructive bowel gas pattern.This final report was electronically signed by Dr Vee MD 03/13/20205:26 PMDictated By: Chante BENITEZ: 03/13/2020 17:26[facility] CBC WITH AUTO [id number] 17:23:00 Test Item Value Reference Range Interpretation [...] entered by [id number] on 03/13/2020 17:23 [facility] HospitalkinLIPASE2020-09-13 17:23:00 Test Item Value Reference Range [...] [facility] HospitalURINALYSIS WITH [id number] 16:54:00 Test Item Value Reference Range Interpretation Comments Color (test code = UCOLR) Yellow Lt. Yellow A Clarity (test code = UCLAR) Clear Glucose (test code = UGLUC) Negative Negative N Bilirubin (test code = UBILI) Negative Negative N Ketones (test code = UKET) Negative Negative N Specific [place] (test code = >=1.030 1.005-1.030 A USPGR) [...] code = UBACT) 4+ None Seen,Trace A [facility] HospitalkinSTAT LAB CHEM [id number] 16:37:00 Test Item Value Reference Range Interpretation [...] code = CREA) 0.4 mg/dl 0.6-1.3 L [facility]kinSP PERC PLMNT MIDLINE NO PORT > [...] PMDictated By: GLORY BENITEZKDate: 03/02/2020 12:17[facility] (IN HOUSE)2020-03-01 18:48:00 Test Item Value Reference Range Interpretation Comments FT (test code Negative Negative N The BioGX SARS -CoV-2 = COVID) (qualifier value) Reagents f or BD MAX System, the Bio Fire Covid-19, and t he Cepheid Covid-1 9 is for in vitro us e under FDA Emergency U se Authorization o nly. Indeterminate r esults recommend recol lection of specimen. [facility]ufkinPT AND [id number] 11:51:00 Test Item Value Reference Range Interpretation [...] 2. 5 - 3.5 [facility]afkinPTT2020-09-01 11:51:00 Test Item Value Reference Range Interpretation Comments aPTT (test code = PTT) 27.4 seconds 23.9-30.7 [facility] ValleyLufkinCBC (HEMOGRAM ONLY)2020-03-01 11:44:00 Test Item Value Reference [...] WILL BE NOTED ON THE RE PORT. [facility]-AltonCULTURE, [id number] 08:08:00Specimen: Urine RandomCollected: 02/25/2020 11:27 Status: Final Last Updated: 02/27/2020 08:08 CULTURE (Final) (Final) No Growth After 48 HoursRich[facility] [id number] 05:38:00 Test Item Value Reference Range Interpretation [...] 0.5-1.3 code = CREA) EGFR if >60 Chinese (test code mL/min/1.73m\\ = EGFRAA) S\\2 EGFR if Non- >60 Estimate d Glomerular Chinese (test code mL/min/1.73m\\ Filtrat ion Rate (eGFR) [...] and management of c hronic kidney failure. [facility]AltonTSH (Ultra Sensitive)2020-02-26 05:38:00 Test Item Value Reference Range Interpretation Comments TSH (test code = TSH) 0.04 mIU/L 0.35-3.74 L [facility] WITH AUTO [id number] 05:18:00 Test Item Value Reference Range Interpretation [...] 0.5 % 0.0-0.4 H IG%) CBC AUTO diffMemorial Cleveland Clinic Avon HospitalfkinCORONAVIRUS 2019 (IN HOUSE)2020-02-25 14:06:00 Test Item [...] r esults recommend recol lection of specimen. [facility]community [facility] hospitalURINALYSIS WITH [id number] 12:56:00 Test Item Value Reference Range Interpretation Comments Color (test code = UCOLR) Yellow Lt. Yellow A Clarity (test code = UCLAR) Slightly Cloudy Glucose (test code = UGLUC) Negative Negative N Bilirubin (test code = UBILI) Negative Negative N Ketones (test code = UKET) Negative Negative N Specific Franklin (test code = >=1.030 1.005-1.030 A USPGR) [...] code = UBACT) Trace None Seen,Trace N [facility] HospitalkinLIPASE2020-08-27 12:52:00 Test Item Value Reference Range [...] (test code = 0.3 mg/dl 0.0-1.1 IBIL) [facility]kinCT ABDOMEN/PELVIS W/[id number] 12:42:41NPO 4 hours. Do not withhold medsProcedure: [...] MD 02/25/202012:36 PMDictated By: WILEY VELÁZQUEZDate: 02/25/2020 12:36[facility] CHEM 2020-02-25 12:07:00 Test Item [...] 0.5 mg/dl 0.6-1.3 L [facility] LAB CBC WITH AUTO [id number] 12:05:00 Test Item Value Reference Range Interpretation [...] (test code = IG%) 0.3 % 0.0-0.4 [facility] LAB CBC WITH AUTO [id number] 03:15:00 Test Item Value Reference Range Interpretation [...] code = IG%) 0.6 % 0.0-0.4 H [facility] LAB CHEM [id number] 02:55:00 Test Item Value Reference Range Interpretation [...] code = CREA) 0.5 mg/dl 0.6-1.3 L [facility] ABDOMEN 1 VIEW (KUB)2020-02-25 02:45:30 PROCEDURE INFORMATION:Exam: [...] By: JORGE LUIS WHITEDate: 02/25/2020 02:45[facility] , URINE 2020-02-25 01:12:00 Test Item Value Reference Range Interpretation Comments (Urine) (test code = Negative PREGU) [facility] LAB URINALYSIS WITHOUT [id number] 01:11:00 Test Item Value Reference Range Interpretation Comments Color (test code = UCOLR) Yellow Lt. Yellow A Clarity (test code = UCLAR) Clear Glucose (test code = UGLUC) Negative Negative N Bilirubin (test code = UBILI) Negative Negative N Ketones (test code = UKET) Negative Negative N Specific Franklin (test code = USPGR) >=1.030 1.005-1.030 A Blood (test code = UBLD) Negative Negative N PH (test code = UPH) 5.5 4.5-8.0 A Protein (test code = UPROT) Negative Negative N Urobilinogen (test code = U UROB) 0.2 >0.2 N Nitrite (test code = UNITR) Negative Negative N Leukocyte Esterase (test code = Negative Negative N ULEUK) [facility]kinXR ABDOMEN 1 VIEW (KUB)2020-02-10 06:46:05 Procedure: XR ABDOMEN 1 VIEW (KUB)Order date: 02/10/2020 4:01 AMOrdering Provider: JUAN Galiciainical Indication: Abdominal painComparison: NoneFindings:There is no small or large bowel distention.There is no pneumoperitoneum.There are no suspicious calcifications.There is no skeletal abnormality.Impression:1. Negative single view abdomen.This final report was electronically signed by Dr Wiley Velázquez MD 02/10/20206:39 AMDictated By: WILEY VELÁZQUEZDate: 02/10/2020 06:39[facility] (KIDNEYS)2020-02-10 05:31:33PROCEDURE INFORMATION:Exam: US [...] By: JORGE LUIS WHITEDate: 02/10/2020 05:31[facility]WATERURINALYSIS WITH [id number] 05:10:00 Test Item Value Reference Range Interpretation Comments Color (test code = UCOLR) Yellow Lt. Yellow A Clarity (test code = UCLAR) Clear Glucose (test code = UGLUC) >=1000 Negative A Bilirubin (test code = UBILI) Negative Negative N Ketones (test code = UKET) Negative Negative N Specific Franklin (test code = 1.015 1.005-1.030 A USPGR) [...] (test code = 0.2 mg/dl 0.0-1.1 IBIL) [facility] LAB CHEM [id number] 04:27:00 Test Item Value Reference Range Interpretation [...] CREA) 0.6 mg/dl 0.6-1.3 [facility] LAB , [id number] 04:24:00 Test Item Value Reference Range Interpretation Comments (Urine) (test code = Negative PREGU) [facility] LAB CBC WITH AUTO [id number] 04:22:00 Test Item Value Reference Range Interpretation [...] = IG%) 0.5 % 0.0-0.4 H [facility]LufkinCT L SPINE W/O [id number] 12:46:24 Procedure: CT L SPINE W/O CONTRASTOrder date: 01/25/2020 11:46 AMOrdering Provider: DONALD Healyinical Indication: [id number]: Low back painComparison: NoneTechnique: Using a multislice [...] MD 01/25/202012:39 PMDictated By: WILEY VELÁZQUEZDate: 01/25/2020 12:39[facility] CENTERHEPATIC FUNCTION PANEL (LIVER)2019-12-09 05:49:00 Test [...] (test code = 0.3 mg/dl 0.0-1.1 IBIL) [address]-[id number] 05:49:00 Test Item Value Reference Range Interpretation Comments Lipase (test code = LIPA) 105 U/L 73-[address] LAB CHEM [id number] 05:06:00 Test Item Value Reference Range Interpretation [...] = CREA) 0.5 mg/dl 0.6-1.3 L ER [address] [place], [place] [address]LufkinSTAT LAB CBC WITH AUTO [id number] 05:04:00 Test Item Value Reference Range Interpretation [...] (test code = IG%) 0.4 % 0.0-0.[address]-[id number] 02:23:00 Test Item Value Reference Range Interpretation [...] ( 4 - SerumAlbumin)] EGFR if >60 Chinese (test code mL/min/1.73m\\ = EGFRAA) S\\2 EGFR if Non- >60 Estimate d Glomerular Chinese (test code mL/min/1.73m\\ Filtrat ion Rate (eGFR) [...] and management of c hronic kidney failure. [facility]LufkinURINALYSIS WITH [id number] 02:11:00 Test Item Value Reference Range Interpretation Comments Color (test code = UCOLR) Yellow Lt. Yellow A Clarity (test code = UCLAR) Clear Glucose (test code = UGLUC) Negative Negative N Bilirubin (test code = UBILI) Negative Negative N Ketones (test code = UKET) Trace Negative A Specific Franklin (test code = USPGR) >=1.030 1.005-1.030 A [...] code = UBACT) 2+ None Seen,Trace A [facility] LAB CBC WITH AUTO [id number] 02:03:00 Test Item Value Reference Range Interpretation [...] (test code = IG%) 0.4 % 0.0-0.4 [facility]LukinMN ABDOMEN/PELVIS W/[id number] 22:43:00NPO 4 hours. Do not withhold meds [...] 201910:42 PM CDT.Dictated By: JOSUÉ MCGHEEDate: 10/07/2019 22:42[facility]UR[facility] 2019-10-07 22:05:00 Test Item Value Reference Range [...] 0.5-1.3 code = CREA) EGFR if >60 Chinese (test code mL/min/1.73m\\ = EGFRAA) S\\2 EGFR if Non- >60 Estimate d Glomerular Chinese (test code mL/min/1.73m\\ Filtrat ion Rate (eGFR) [...] and management of c hronic kidney failure. [facility]-LufkinAMYLASE, [id number] 22:05:00 Test Item Value Reference Range Interpretation Comments Amylase (test code = AMYL) 43 U/L 25-115 [facility] HospitalUtwcky-[id number] 22:05:00 Test Item Value Reference Range Interpretation Comments Lipase (test code = LIPA) 95 U/L 73-393 [facility]LufkinURINALYSIS WITH [id number] 21:49:00 Test Item Value Reference Range Interpretation Comments Color (test code = UCOLR) Yellow Lt. Yellow A Clarity (test code = UCLAR) Clear Glucose (test code = UGLUC) Negative Negative N Bilirubin (test code = UBILI) Negative Negative N Ketones (test code = UKET) 15 Negative A Specific Franklin (test code = USPGR) >=1.030 1.005-1.030 A [...] code = UBACT) 3+ None Seen,Trace A [facility] LAB CBC WITH AUTO [id number] 21:45:00 Test Item Value Reference Range Interpretation [...] (test code = IG%) 0.4 % 0.0-0.4 [facility]STAT LAB , [id number] 21:36:00 Test Item Value Reference Range Interpretation Comments (Urine) (test code = Negative PREGU) [facility]kinCT ABDOMEN/PELVIS W/O [id number] 03:56:36 PROCEDURE INFORMATION:Exam: CT Abdomen And Pelvis [...] AM CDT.Dictated By: AMY ORDOÑEZDate: 09/20/2019 03:56 [facility] [id number] 02:07:00 Test Item Value Reference Range Interpretation [...] ( 4 - SerumAlbumin)] EGFR if >60 Chinese (test code mL/min/1.73m\\ = EGFRAA) S\\2 EGFR if Non- >60 Estimate d Glomerular Chinese (test code mL/min/1.73m\\ Filtrat ion Rate (eGFR) [...] and management of c hronic kidney failure. [facility]ufkinXR ABDOMEN 2 VIEWS FLAT / [id number] 02:01:15PROCEDURE INFORMATION:Exam: XR Abdomen, 2 ViewsExam date [...] 2:01 AM CDT.Dictated By: AMY ORDOÑEZDate: 09/20/2019 02:01[facility]ENTERURINALYSIS WITH MICROSCOPIC 2019-09-20 01:56:00 Test Item Value Reference Range Interpretation Comments Color (test code = UCOLR) Yellow Lt. Yellow A Clarity (test code = UCLAR) Clear Glucose (test code = UGLUC) >=1000 Negative A Bilirubin (test code = UBILI) Negative Negative N Ketones (test code = UKET) Trace Negative A Specific Franklin (test code = USPGR) >=1.030 1.005-1.030 A [...] code = UBACT) 2+ None Seen,Trace A [facility] LAB CBC WITH AUTO [id number] 01:38:00 Test Item Value Reference Range Interpretation [...] = IG%) 0.5 % 0.0-0.4 H [facility] ABDOMEN/PELVIS W/[id number] 04:23:30 PROCEDURE INFORMATION:Exam: CT Abdomen And Pelvis [...] 20194:23 AM CDT.Dictated By: SETH MEDINADate: 08/17/2019 04:23[facility] [id number] 03:34:00 Test Item Value Reference Range Interpretation Comments Lipase (test code = LIPA) 67 U/L 73-393 L [facility]-[id number] 03:34:00 Test Item Value Reference Range Interpretation [...] ( 4 - SerumAlbumin)] EGFR if >60 Chinese (test code mL/min/1.73m\\ = EGFRAA) S\\2 EGFR if Non- >60 Estimate d Glomerular Chinese (test code mL/min/1.73m\\ Filtrat ion Rate (eGFR) [...] and management of c hronic kidney failure. [facility] LAB CBC WITH AUTO [id number] 03:19:00 Test Item Value Reference Range Interpretation [...] code = IG%) 0.7 % 0.0-0.4 H [facility]-LufkinURINALYSIS WITH [id number] 03:10:00 Test Item Value Reference Range Interpretation Comments Color (test code = UCOLR) YELLOW Clarity (test code = UCLAR) CLEAR Glucose (test code = UGLUC) NEGATIVE NEGATIVE N Bilirubin (test code = UBILI) NEGATIVE NEGATIVE N Ketones (test code = UKET) NEGATIVE NEGATIVE N Specific Franklin (test code = 1.025 1.005-1.030 A USPGR) [...] code = UBACT) 1+ None Seen,Trace A [facility] ValleyLufkinSTAT LAB , [id number] 03:03:00 Test Item Value Reference Range Interpretation Comments (Urine) (test code = Negative PREGU) ONLY AVAILABLE 8A-12MNMay[facility] Clinic Health System– Chippewa ValleyLufkinED2 [id number] 20:37:00 Test Item Value Reference Range Interpretation [...] (test code = CREA) 0.6 mg/dl 0.6-1.2 [facility] HospitalkinED2 [id number] 20:28:00 Test Item Value Reference Range Interpretation [...] code = MPV) 7.1 fL 8.0-11.0 A [facility]-AltonCULTURE, [id number] 08:44:26vxk5Ompldhme: Urine SpecimensCollected: 07/12/2019 15:00 Status: Final Last Updated: 2019 08:44 (1) err7 Culture Result (Final) (Final) Moderate Mixed Body Gabriela Isolated No Pathogens Isolated No Further Workup PerformedRichland Hospital-LufkinFL LIMITED [id number] 17:53:41Procedures: [place] LIMITED IVPExam Date: 07/12/2019 3:21 PMOrdering Physician: REHAN COTTONClinical Indication: [id number]: Flank painComparison: CT abdomen/pelvis, 05/17/19Findings: Frontal radiographs [...] PMDictated By: ELMER PHAMDate: 07/12/2019 17:47[facility] [id number] 15:56:00 Test Item Value Reference Range Interpretation Comments Lipase (test code = LIPA) 97 U/L 73-[address]-[facility] HospitalkinHEPATIC FUNCTION PANEL (LIVER)2019-07-12 15:56:00 Test Item Value [...] (test code = 0.2 mg/dl 0.0-1.1 IBIL) [address]-LufkinURINALYSIS WITH [id number] 15:51:00 Test Item Value Reference Range Interpretation Comments Color (test code = UCOLR) YELLOW Clarity (test code = UCLAR) CLEAR Glucose (test code = UGLUC) NEGATIVE NEGATIVE N Bilirubin (test code = UBILI) NEGATIVE NEGATIVE N Ketones (test code = UKET) NEGATIVE NEGATIVE N Specific Franklin (test code = 1.020 1.005-1.030 A USPGR) [...] code = UBACT) 4+ None Seen,Trace A [address] LAB CHEM [id number] 15:09:00 Test Item Value Reference Range Interpretation [...] (test code = CREA) 0.6 mg/dl 0.6-1.[address] LAB CBC WITH AUTO [id number] 15:08:00 Test Item Value Reference Range Interpretation [...] (test code = IG%) 0.4 % 0.0-0.[address]-LukinCT ABDOMEN/PELVIS W/[id number] 16:33:46NPO 4 hours. Do not withhold medsProcedures: CT ABDOMEN/PELVIS W/CONTRASTExam Date: 05/17/2019 1:31 PMOrdering Physician: MERLE LYNNEClinical Indication: [id number]: Abdominal painComparison: CT abdomen/pelvis, 04/09/19TECHNIQUE: Spiral multislice [...] MD05/17/2019 4:27 PMDictated By: ELMER PHAMDate: 05/17/2019 16:27[facility] [id number] 16:20:00 Test Item Value Reference Range Interpretation Comments Lipase (test code = LIPA) 70 U/L 73-393 L [facility] LAB CHEM [id number] 15:24:00 Test Item Value Reference Range Interpretation [...] 0.5 mg/dl 0.6-1.3 L [facility] LAB LACTIC [id number] 15:23:00 Test Item Value Reference Range Interpretation Comments LACTATE (test code = LAC) 1.39 mmol/l 0.90-1.70 [facility] LAB CBC WITH AUTO [id number] 15:21:00 Test Item Value Reference Range Interpretation [...] = IG%) 0.5 % 0.0-0.4 H [facility]-LufkinURINALYSIS WITH [id number] 15:08:00 Test Item Value Reference Range Interpretation Comments Color (test code = UCOLR) YELLOW Clarity (test code = UCLAR) CLEAR Glucose (test code = UGLUC) NEGATIVE NEGATIVE N Bilirubin (test code = UBILI) NEGATIVE NEGATIVE N Ketones (test code = UKET) NEGATIVE NEGATIVE N Specific Franklin (test code = 1.025 1.005-1.030 A USPGR) [...] code = UBACT) 2+ None Seen,Trace A [facility]-LufkinCT ANGIO HEAD W/WO [id number] 16:28:5720 g Cathlon Above the Antecubital or higher requiredProcedure: CT ANGIO HEAD W/WO CONTRASTOrder Date: 05/12/2019 3:30 PMOrdering Provider: REHAN CABRERARSClinical Indication: [id number]: HeadacheComparison: NoneTechnique: Using a helical scanner, sequential axial imaging of the brain wasobtained before and after the administration of the contrast medium. At anindependent workstation, 3-D reconstructions of the redding of Valladares wereobtained.This examwas performed according to [...] PMDictated By: FARZAD DEWITTDate: 05/12/2019 16:22[facility]WE[facility]ATERCT ABDOMEN/PELVIS W/[id number] 14:36:05NPO 4 hours. Do not withhold medsProcedure: [...] PMDictated By: GLORY BENITEZKDate: 04/09/2019 14:29[facility] WITH AUTO [id number] 09:02:00 Test Item Value Reference Range Interpretation [...] code = 0.5 % 0.0-0.4 H IG%) [facility]O [id number] 09:14:00 Test Item Value Reference Range Interpretation [...] (test code = 0.4 % 0.0-0.4 IG%) [facility]-[id number] 09:12:00 Test Item Value Reference Range Interpretation [...] 0.5-1.3 code = CREA) EGFR if >60 Chinese (test code mL/min/1.73m\\ = EGFRAA) S\\2 EGFR if Non- >60 Estimate d Glomerular Chinese (test code mL/min/1.73m\\ Filtrat ion Rate (eGFR) [...] and management of c hronic kidney failure. [facility]-LufkinSP PERC PLMNT MIDLINE NO PORT > [...] immediate complications.Impression:1. Successful upper extremity vascular access.This [facility] report was electronically signed by Dr Wiley Velázquez MD 04/07/20194:05 PMDictated By: WILEY VELÁZQUEZDate: 04/07/2019 16:05[facility] W/[id number] 22:50:40PROCEDURE INFORMATION:Exam: CT Abdomen and pelvis with [...] PM CDT.Dictated By: ELMER PHAMDate: 04/04/2019 22:50[facility] [id number] 21:22:00 Test Item Value Reference Range Interpretation [...] 0.3 mg/dl 0.0-1.1 IBIL) [facility] LAB CHEM [id number] 21:07:00 Test Item Value Reference Range Interpretation [...] CREA) 0.6 mg/dl 0.6-1.3 [facility] LAB URINALYSIS WITHOUT [id number] 21:05:00 Test Item Value Reference Range Interpretation Comments Color (test code = UCOLR) Yellow Lt. Yellow A Clarity (test code = UCLAR) Slightly Cloudy Glucose (test code = UGLUC) 100 Negative A Bilirubin (test code = UBILI) Negative Negative N Ketones (test code = UKET) Negative Negative N Specific Franklin (test code = >=1.030 1.005-1.030 A USPGR) Blood (test code = UBLD) Negative Negative N PH (test code = UPH) 5.5 4.5-8.0 A Protein (test code = UPROT) Negative Negative N Urobilinogen (test code = U 0.2 >0.2 N UROB) Nitrite (test code = UNITR) Negative Negative N Leukocyte Esterase (test code Negative Negative N = ULEUK) [facility] LAB CBC WITH AUTO [id number] 21:04:00 Test Item Value Reference Range Interpretation [...] % 0.0-0.4 H [facility] ValleyL[facility]kinSTAT LAB , [id number] 21:04:00 Test Item Value Reference Range Interpretation Comments (Urine) (test code = Negative PREGU) ONLY AVAILABLE 8A-12[facility]-LufkinED2 [id number] 16:05:00 Test Item Value Reference Range Interpretation Comments Sodium (test code = CANCELED mmol/l The r eleased value NA) 141 was cancele d by [id number] on 04/04/2019 16:0 5 Potassium (test code CANCELED mmol/l The released value = K) 3.9 was cancele d by [id number] on 04/04/2019 16:0 5 CO2 (test code = CANCELED mmol/l The rele ased value CO2) 23 was canceled by [id number] on 04/04/2019 16:0 5 Chloride (test code CANCELED mmol/l The r eleased value = CL) 108 was cancele d by [id number] on 04/04/2019 16:0 5 Glucose (test code = CANCELED mg/dl The r eleased value GLU) 96 was canceled by [id number] on 04/04/2019 16:0 5 Calcium (test code = CANCELED mg/dl The r eleased value CALC) 8.8 was cancele d by [id number] on 04/04/2019 16:0 5 BUN (test code = CANCELED mg/dl The relea sed value BUN) 11 was canceled by [id number] on 04/04/2019 16:0 5 Creatinine (test CANCELED mg/dl code = CREA) [facility]fcommunity [facility] hospitalHISTOLOGY [id number] 11:08:00 [address] [place], [place] [address]Fbruq: [phone] MOAW #: [id number] MedicalDirector: Seth Valdez M.D.Surgical Pathology Consultation ReportPatient Name: LAUREN BETH Case #: [id number] Med. Rec. #:[id number] [id number]: [facility]/21/2019 : 1985(Age:33) Received: 03/23/2019 [...] greatest dimension. The cystsarefilled with clearserous fluid. [employer] Treatment [employer] Operator sections of the ovaryandpossible fallopian tube are submitted in cassettes A1-A8. /03/23/2019 Seth Valdez MD, Board Certified in Anatomic Pathology Microscopic DescriptionMicroscopic examination of the right ovary reveals fibrovascularadhesionsalong the surface of the ovary as well as along the accompanyingfallopiantube. The ovarian parenchyma contains follicular cysts, benign serouscyst,as well as numerous corpus albicans. No areas of endometriosis areseen. Billing Fee Code(s): Lila; [address]FrsmxxirRich[facility]- [facility] TRANSVAGINAL W/[id number] 16:45:00 Patient Name: ADELIA BETH Unit No: [id number] EXAMS: CPT CODE: [id number] US TRANSVAGINAL W/PELVIS 38256 CLINICAL HISTORY: Right lower quadrant pain. Status [...] MD CC: Hilaria Calderón MD Technologist: Dipesh Loepz RDMS, T Probe: [id number] Trnscrbd D/ (4585) tCLIVEYOLuc Orig Print D/T: S: 03/10/2019 (6269) [facility] NAME: ADELIA BETH Radiology Department PHYS: Hilaria Maldonado [address] : 1985 AGE: 33 SEX: F [place], [place] [address] LOC: DayanaraERS PHONE #: [phone] EXAM DATE: 03/10/2019 STATUS: REG ER FAX #: [phone] RAD NO: Page 1 Signed Report Patient Name: ADELIA BETH Unit No: [id number] EXAMS: CPT CODE: [id number] US TRANSVAGINAL W/PELVIS 46490 <Continued> [facility] NAME: ADELIA BETH Radiology Department PHYS: SUEEmmaHilaria Diaz [address] : 1985 AGE: 33 SEX: F [place], [place] [address] LOC: ALONDRA PHONE #: [phone] EXAM DATE: 03/10/2019 STATUS: REG ER FAX #: [phone] RAD NO: Page2 Signed Report- US TRANSVAGINAL W/[id number] 16:45:00 Patient Name: LAUREN BETH Unit No: [id number] EXAMS: CPT CODE: [id number] US TRANSVAGINAL W/PELVIS 81472 CLINICAL HISTORY: Right lower quadrant pain. Status [...] is identified in the right ovary. at 9909 Reported and signed by: Mario Guidry MD CC: Hilaria Calderón MD Technologist: Dipesh Lopez RDMS, RVT Probe: [id number] Trnscrbd D/ (6825) Ro Orig Print D/T: S: 03/10/2019 (1648) [facility] NAME: LAUREN BETH Radiology Department PHYS: [facility] Hilaria Calderón [address] : 1985 AGE: 33 SEX: [place], [place] [address] LOC: DayanaraERS PHONE #: [phone] EXAM DATE: 03/10/2019 STATUS: [facility] ER FAX #: [phone] RAD NO: [id number] Page 1 SignedReport Patient Name: LAUREN BETH Unit No: [id number] EXAMS: CPT CODE: [id number] US TRANSVAGINAL W/PELVIS 77688 (Continued) [facility] NAME: LAUREN BETH Radiology Department PHYS: NIGEL - Hilaria Calderón [address] : 1985 AGE: 33 SEX: [place], [place] [address] LOC: DayanaraERS PHONE #: [phone] EXAM DATE: 03/10/2019 STATUS: [facility] ER FAX #: [phone] RAD NO: [id number] Page 2 Signed Report- US PELVIS [id number] 16:45:00 Patient Name: ADELIA BETH Unit No: [id number] EXAMS: CPT CODE: [id number] US PELVIS COMPLETE 23085 CLINICAL HISTORY: Right lower quadrant pain. Status [...] Dipesh Lopez RDMS, RVT Probe: Trnscrbd D/ (3375) t.SDR.YOS Orig Print D/T: S: 03/10/2019 (9403) [facility] NAME: ADELIA BETH Radiology Department PHYS: GUTAL. - Hilaria Calderón [address] : 1985 AGE: 33 SEX: [place] [address] LOC: ALONDRA PHONE #: [phone] EXAM DATE: STATUS: REG ER FAX #: [phone] RAD NO: Page 1 Signed Report Patient Name: ADELIA BETH Unit No: [id number] EXAMS: CPT CODE: [id number] US PELVIS COMPLETE 72015 <Continued> [facility] NAME: ADELIA BETH Radiology Department PHYS: - Hilaria Calderón [address] : 1985 AGE: 33 SEX: F [place], [place] [address] LOC: DayanaraERS PHONE #: [phone] EXAM DATE: 03/10/2019 STATUS: REG ER FAX #: [phone] RAD NO: Page 2 Signed Report- US PELVIS [id number] 16:45:00 Patient Name: LAUREN BETH Unit No: [id number] EXAMS: CPT CODE: [id number] US PELVIS COMPLETE 91686 CLINICAL HISTORY: Right lower quadrant pain. Status [...] Dipesh Lopez RDMS, RVT Probe: Trnscrbd D/ (8545) t.MICAELAR.YOS Orig Print D/T: S: 03/10/2019 (7646) [facility] NAME: LAUREN BETH Radiology Department PHYS: GUTAL. - Hilaria Calderón [address] : 1985 AGE: 33 SEX: F [place] [address] LOC: ALONDRA PHONE #: [phone] EXAM DATE: 03/10/2019 STATUS: [facility] ER FAX #: [phone] RAD NO: [id number] Page 1 Signed Report Patient Name: LAUREN BETH Unit No: [id number] EXAMS: CPT CODE: [id number] US PELVIS COMPLETE [id number] (Continued) [facility] NAME: LAUREN BETH Radiology Department PHYS: SUE. - Hilaria Calderón [address] : 1985 AGE: 33 SEX: F [place] [address] LOC: ALONDRA PHONE #: [phone] EXAM DATE: 03/10/2019 STATUS: [facility] ER FAX #: [phone] RAD NO: [id number] Page 2 Signed ReportCBC W/AUTO DIFF 2019-03-10 [...] = PLTMR) UA RFLX MICR CULT IF [id number] 16:07:00 Test Item Value Reference Range Interpretation [...] A Indication for culture: Suprapubic PainUR HCG [id number] 16:07:00 Test Item Value Reference Range Interpretation [...] culture: Suprapubic PainUA RFLX MICR CULT IF [id number] 16:04:00 Test Item Value Reference Range Interpretation [...] EPIU) Indication for culture: Suprapubic PainUR HCG [id number] 16:04:00 Test Item Value Reference Range Interpretation [...] culture: Suprapubic PainUA RFLX MICR CULT IF [id number] 15:55:00 Test Item Value Reference Range Interpretation [...] RARE-FEW Indication for culture: Suprapubic PainUR HCG [id number] 15:55:00 Test Item Value Reference Range Interpretation [...] and tested. Indication for culture: Suprapubic PainED2 [id number] 01:18:00 Test Item Value Reference Range Interpretation [...] code = MPV) 6.9 fL 8.0-11.0 A [facility] [id number] 00:55:00 Test Item Value Reference Range Interpretation Comments Color (test code = UCOLR) Yellow Lt. Yellow A Clarity (test code = UCLAR) Clear Glucose (test code = UGLUC) NEGATIVE NEGATIVE N Bilirubin (test code = UBILI) NEGATIVE NEGATIVE N Ketones (test code = UKET) NEGATIVE NEGATIVE N Specific Franklin (test code = USPGR) 1.030 1.005-1.030 A Blood (test code = UBLD) NEGATIVE NEGATIVE N PH (test code = UPH) 6.0 4.5-8.0 A Protein (test code = UPROT) Trace NEGATIVE A Urobilinogen (test code = U UROB) 0.2 >0.2 N Nitrite (test code = UNITR) NEGATIVE NEGATIVE N Leukocyte Esterase (test code = NEGATIVE NEGATIVE N ULEUK) [facility] , [id number] 00:54:00 Test Item Value Reference Range Interpretation Comments (Urine) (test code = Negative PREGU) [facility][id number] 13:07:00 Test Item Value Reference Range Interpretation Comments Lipase (test code = LIPA) 106 U/L 73-[address] [facility] [address] [facility]/PELVIS [id number] 12:24:12Procedures: ED2 CT ABDOMEN/PELVIS W/CONTRASTExam Date: 02/07/2019 10:11 AMOrdering Physician: WYATT SOTOMAYORClinical Indication: [id number]: Epigastric painComparison: CT abdomen/pelvis, 01/27/19TECHNIQUE: Spiral multislice [...] 12:17 PMDictated By: ELMER PHAMDate: 02/07/2019 12:17[facility] [place] [address] [id number] 10:48:00 Test Item Value Reference Range Interpretation [...] (test code = TP) 7.6 gm/dl 6.4-8.1 [place] [address] URINE [id number] 10:45:00 Test Item Value Reference Range Interpretation Comments Color (test code = UCOLR) Yellow Lt. Yellow A Clarity (test code = UCLAR) Sl Cloudy Glucose (test code = UGLUC) NEGATIVE NEGATIVE N Bilirubin (test code = UBILI) NEGATIVE NEGATIVE N Ketones (test code = UKET) NEGATIVE NEGATIVE N Specific Franklin (test code = 1.025 1.005-1.030 A USPGR) Blood (test code = UBLD) NEGATIVE NEGATIVE N PH (test code = UPH) 5.5 4.5-8.0 A Protein (test code = UPROT) NEGATIVE NEGATIVE N Urobilinogen (test code = U UROB) 0.2 >0.2 N Nitrite (test code = UNITR) NEGATIVE NEGATIVE N Leukocyte Esterase (test code = NEGATIVE NEGATIVE N ULEUK) [place] [address] , [id number] 10:45:00 Test Item Value Reference Range Interpretation Comments (Urine) (test code = Negative PREGU) [place] [address] [id number] 10:44:00 Test Item Value Reference Range Interpretation [...] code = MPV) 6.8 fL 8.0-11.0 A [facility]OM[facility]/PELVIS W/[id number] 12:29:19s/p hysterectomy; rlq painProcedure: CT ABDOMEN/PELVIS W/CONTRASTOrder Date: 01/27/2019 10:57 AMOrdering Provider: DR LEXUS CASTREJON ACOSTAClinical Indication: [id number]: Abdominal painComparison: September 30, 2018TECHNIQUE:The abdo men [...] MD 01/27/201912:23 PMDictated By: GLORY BENITEZKDate: 01/27/2019 12:23[facility]WATERURINALYSIS WITH [id number] 12:10:00 Test Item Value Reference Range Interpretation Comments Color (test code = UCOLR) YELLOW Clarity (test code = UCLAR) CLEAR Glucose (test code = UGLUC) NEGATIVE NEGATIVE N Bilirubin (test code = UBILI) NEGATIVE NEGATIVE N Ketones (test code = UKET) NEGATIVE NEGATIVE N Specific Franklin (test code = USPGR) <=1.005 1.005-1.030 A [...] code = UBACT) Trace None Seen,Trace N [facility]Rdhmjy-[id number] 11:49:00 Test Item Value Reference Range Interpretation Comments Lipase (test code = LIPA) 91 U/L 73-393 [facility]-AltonAMYLASE, [id number] 11:49:00 Test Item Value Reference Range Interpretation Comments Amylase (test code = AMYL) 45 U/L 25-115 [facility] LAB CHEM [id number] 11:25:00 Test Item Value Reference Range Interpretation [...] 0.5 mg/dl 0.6-1.3 L [facility] LAB CBC WITH AUTO [id number] 11:23:00 Test Item Value Reference Range Interpretation [...] [facility] [id number] 07:55:25h/o complex right ovarian cystsProcedure: Pelvic ultrasound.CLINICAL [...] Velázquez MD 12/07/20187:49 AMDictated By:WILEY VELÁZQUEZDate: 12/07/2018 07:49[facility] [id number] 03:11:00 Test Item Value Reference Range Interpretation [...] (test code = 0.1 mg/dl 0.0-1.1 IBIL) [facility] LAB CHEM [id number] 02:41:00 Test Item Value Reference Range Interpretation [...] 0.5 mg/dl 0.6-1.3 L [facility] LAB CBC WITH AUTO [id number] 02:39:00 Test Item Value Reference Range Interpretation [...] = IG%) 0.5 % 0.0-0.4 H [facility]kinURINALYSIS WITH [id number] 02:37:00 Test Item Value Reference Range Interpretation Comments Color (test code = UCOLR) YELLOW Clarity (test code = UCLAR) CLEAR Glucose (test code = UGLUC) 500 NEGATIVE A Bilirubin (test code = UBILI) NEGATIVE NEGATIVE N Ketones (test code = UKET) TRACE NEGATIVE A Specific Franklin (test code = USPGR) >=1.030 1.005-1.030 A [...] code = UBACT) 2+ None Seen,Trace A [facility]LufkinCULTURE, [id number] 07:39:00CULTURE RIGHT ABDOMEN WOUND CARE DEPTSpecimen: AbdomenCollected: [...] Sc (+/-) Negative - ICR (+/-) Negative -[facility]kinXR CHEST AP/PA 1 [id number] 05:15:17Procedure: XR CHEST AP/PA 1 VIEWOrder Date: 09/30/2018 8:28 PMOrdering Provider: DIMAS Haskinsinical Indication: [id number]: Acute chest painComparison: May 13, 2017Findings:Cardiac size is magnified by technique.Pulmonary vasculature is normal.Mediastinal contour is normal.Aortic contour is normal.There is no consolidation or effusion.There is no evidence of active tuberculosis.There is no mass or pneumothorax.There is no skeletal abnormality.Impression: Negative AP portable chest x-ray.This final report was electronically signed by Dr Farzad Dewitt MD 10/01/20185:08 AMDictated By: FARZAD DEWITTDate: 10/01/2018 05:08 [facility]/O [id number] 00:42:26NPO 4 hours. Do not withhold medsEXAM:CT [...] CDT.Dictated By: REHAN AZARDate: 10/01/2018 00:42[facility] [id number] 21:37:00 Test Item Value Reference Range Interpretation [...] (test code = 0.5 mg/dl 0.0-1.1 IBIL) [facility] LAB CHEM [id number] 21:10:00 Test Item Value Reference Range Interpretation [...] 0.5 mg/dl 0.6-1.3 L [facility] LAB CBC WITH AUTO [id number] 21:09:00 Test Item Value Reference Range Interpretation [...] [facility][note 3] W/WO TUBE,BPE-[id number] 12:44:00 RUN DATE: 09/04/18 [facility] PAGE 1 RUN TIME: 1454 Specimen Inquiry RUN USER: INTERFACE -PATIENT: LAUREN BETH [facility]: [id number] AGE/SX: 33/F ROOM: [facility] RE09/02/18REG DR:Elmer Flores : [birth year] BED: A DIS: 09/03/18 STATUS: DIS Coty TLOC: SPEC #: [id number] RECD: 09/02/18 STATUS: KWAME REQ #: [id number] MELISSA: 09/02/18- SUBM DR: Elmer Flores III ENTERED: 09/03/18 SP TYPE: MUSA PELAYO DR: ORDERED: LEVEL IV CODES: [id number] - OVARY, NOS PROCEDURES: LEVEL IV (Incomplete) TISSUES: OVARY, NOS - RIGHT OVARIAN CYST CLINICAL HISTORY 33 year old,acute pelvic pain (wpd) FINAL DIAGNOSIS Right ovarian cyst, excision: - benign simple cyst of ovary Tissue code 1 CPT code(s): 54360 [facility] 09/04/18 GROSS DESCRIPTION ANATOMIC SOURCE OF [...] with multiple yellow-orange, centrally hemorrhagic corpora lutea. [employer] Operator sections are submitted as A and [...] NORMAL NORMAL code = PLTMR) CHEMISTRY 7 [id number] 14:15:00 Test Item Value Reference Range Interpretation [...] CA) 9.2 mg/dL 8.4-10.2 N CBC W/AUTO [id number] 13:42:00 Test Item Value Reference Range Interpretation [...] NORMAL NORMAL code = PLTMR) US INTRAVAGINAL [id number] 12:35:09Procedure: Pelvic ultrasound.CLINICAL INDICATION: Pelvic pain. Status [...] MD 09/01/201812:28 PMDictated By: WILEY VELÁZQUEZDate: 09/01/2018 12:28MM OF [facility] CBC WITH AUTO [id number] 11:31:00 Test Item Value Reference Range Interpretation [...] RS88 71 on 09/01/2018 11:31 ONLY AVAILABLE [address] [place] [address]-LukinCT ABDOMEN/PELVIS W/O [id number] 11:11:01MLP CProcedure: CT ABDOMEN/PELVIS W/O CONTRASTOrder Date: 09/01/2018 9:28 AMOrdering Provider: CHIN LORENZANAClinical Indication: [id number]: Abdominal pain. Left lower quadrant painComparison: 12/24/2017TECHNIQUE:CT [...] OF [facility] CHEM [id number] 10:26:00 Test Item Value Reference Range Interpretation [...] CREA) 0.4 mg/dl 0.6-1.3 L ONLY AVAILABLE [address] [place] [address] LAB URINALYSIS WITHOUT [id number] 09:59:00 Test Item Value Reference Range Interpretation Comments Color (test code = UCOLR) Yellow Lt. Yellow A Clarity (test code = UCLAR) Clear Glucose (test code = UGLUC) NEGATIVE Negative A Bilirubin (test code = UBILI) NEGATIVE Negative A Ketones (test code = UKET) NEGATIVE Negative A Specific Franklin (test code = USPGR) 1.015 1.005-1.030 A Blood (test code = UBLD) NEGATIVE Negative A PH (test code = UPH) 7.0 4.5-8.0 A Protein (test code = UPROT) NEGATIVE Negative A Urobilinogen (test code = U UROB) 0.2 >0.2 N Nitrite (test code = UNITR) NEGATIVE Negative A Leukocyte Esterase (test code = NEGATIVE Negative A ULEUK) ONLY AVAILABLE [address] [place] [address]-Luluis fernandokin INTRAVAGINAL PELVIS 2018-05-13 13:26:23Procedure: Pelvic ultrasound.CLINICAL INDICATION: [...] [facility] WITH AUTO [id number] 12:22:00 Test Item Value Reference Range Interpretation [...] (test code = 0.2 % 0.0-0.4 IG%) [facility] LAB CBC WITH AUTO [id number] 11:54:00 Test Item Value Reference Range Interpretation [...] 0.5 % 0.0-0.4 H IG%) ONLY AVAILABLE [address] [place] [address] LAB URINALYSIS WITHOUT [id number] 11:25:00 Test Item Value Reference Range Interpretation Comments Color (test code = UCOLR) Yellow Lt. Yellow A Clarity (test code = UCLAR) Clear Glucose (test code = UGLUC) NEGATIVE Negative A Bilirubin (test code = UBILI) NEGATIVE Negative A Ketones (test code = UKET) NEGATIVE Negative A Specific Franklin (test code = USPGR) 1.020 1.005-1.030 A Blood (test code = UBLD) NEGATIVE Negative A PH (test code = UPH) 7.0 4.5-8.0 A Protein (test code = UPROT) NEGATIVE Negative A Urobilinogen (test code = U UROB) 0.2 >0.2 N Nitrite (test code = UNITR) NEGATIVE Negative A Leukocyte Esterase (test code = NEGATIVE Negative A ULEUK) ONLY AVAILABLE [address] [place] [address] LAB , URINE 2018-05-13 11:25:00 Test Item Value Reference Range Interpretation Comments (Urine) (test code = Negative PREGU) ONLY AVAILABLE [address] [place] [address] LAB CHEM [id number] 11:23:00 Test Item Value Reference Range Interpretation [...] CREA) 0.5 mg/dl 0.6-1.3 L ONLY AVAILABLE [address] [place], [place] [address]kinUS INTRAVAGINAL PELVIS 2017-12-24 12:50:53Procedure: Pelvic ultrasound.CLINICAL INDICATION: [...] MD 12/24/201712:44 PMDictated By: WILEY VELÁZQUEZDate: 12/24/2017 12:50[facility]WEETWATERURINALYSIS WITH [id number] 10:22:00 Test Item Value Reference Range Interpretation Comments Color (test code = UCOLR) Yellow Clarity (test code = UCLAR) Clear Glucose (test code = UGLUC) NEGATIVE NEGATIVE N Bilirubin (test code = UBILI) NEGATIVE NEGATIVE N Ketones (test code = UKET) NEGATIVE NEGATIVE N Specific Franklin (test code = USPGR) 1.025 1.005-1.030 A [...] = UBACT) Trace None Seen,Trace N [facility] HospitalLIPASE, [id number] 10:05:00 Test Item Value Reference Range Interpretation Comments Lipase (test code = LIPA) 40 U/L 8-223 [facility]-[id number] 10:05:00 Test Item Value Reference Range Interpretation [...] ( 4 - SerumAlbumin)] EGFR if >60 Chinese (test code mL/min/1.73m\\ = EGFRAA) S\\2 EGFR if Non- >60 Estimate d Glomerular Chinese (test code mL/min/1.73m\\ Filtrat ion Rate (eGFR) [...] and management of c hronic kidney failure. [facility]kinCT ABD/ PELVIS W/O CON (RENAL STONE)2017-12-24 [...] 12/24/20179:32 AMDictated By: WILEY VELÁZQUEZDate: 12/24/2017 09:38[facility] WITH AUTO DIFF 2017-12-24 09:26:00 Test Item [...] = 0.6 % 0.0-0.4 H IG%) [facility]O [facility]/ PELVIS W/O CON (RENAL STONE) [...] on 3:19 AMCDT.Dictated By: MARVIN DOBBSDate: 06/21/2017 03:20[facility] WITH [id number] 03:20:00 Test Item Value Reference Range Interpretation Comments Color (test code = UCOLR) YELLOW Clarity (test code = UCLAR) CLEAR Glucose (test code = UGLUC) NEGATIVE NEGATIVE N Bilirubin (test code = UBILI) NEGATIVE NEGATIVE N Ketones (test code = UKET) NEGATIVE NEGATIVE N Specific Franklin (test code = 1.020 1.005-1.030 A USPGR) [...] = UBACT) None Seen None Seen,Trace N [address]-[id number] 03:07:00 Test Item Value Reference Range Interpretation [...] ( 4 - SerumAlbumin)] EGFR if >60 Chinese (test code mL/min/1.73m\\ = EGFRAA) S\\2 EGFR if Non- >60 Estimate d Glomerular Chinese (test code mL/min/1.73m\\ Filtrat ion Rate (eGFR) [...] management of c hronic kidney failure. er [address] [place] [address]-LufkinLIPASE, [id number] 03:07:00 Test Item Value Reference Range Interpretation Comments Lipase (test code = LIPA) 61 U/L 8-[address] [place] [address]-LufkinCB WITH AUTO [id number] 03:05:00 Test Item Value Reference Range Interpretation [...] code = 0.4 % 0.0-0.4 IG%) er [address] [place] [address]-LufkinXR CHEST 2 PA [id number] 19:56:04 Procedure: XR CHEST 2 PA LATERALExam date: 05/13/2017 3:53 PMOrdering Provider: DR ASA BLOOMClinical Indication: fatigue, Chest painComparison: March 15, 2016Findings:Cardiomediastinal silhouette is within normal limits.The lungs are clear.No pleural effusion or pneumothorax. Osseous structures are nonacute.No evidence of active tuberculosis.Impression:No acute cardiopulmonary process.This final report was electronically signed by Dr Wiley Velázquez MD 05/13/20177:49 PMDictated By: WILEY VELÁZQUEZDate: 05/13/2017 19:55[facility] [id number] 16:53:00 Test Item Value Reference Range Interpretation [...] ( 4 - SerumAlbumin)] EGFR if >60 Chinese (test code mL/min/1.73m\\ = EGFRAA) S\\2 EGFR if Non- >60 Estimate d Glomerular Chinese (test code mL/min/1.73m\\ Filtrat ion Rate (eGFR) [...] and management of c hronic kidney failure. [facility] (HEMOGRAM ONLY)2017-05-13 16:32:00 Test Item Value [...] WILL BE NOTED ON THE RE PORT. [facility]LufkinURINALYSIS WITH [id number] 18:25:00 Test Item Value Reference Range Interpretation Comments Color (test code = UCOLR) YELLOW Clarity (test code = UCLAR) CLEAR Glucose (test code = UGLUC) NEGATIVE NEGATIVE N Bilirubin (test code = UBILI) NEGATIVE NEGATIVE N Ketones (test code = UKET) NEGATIVE NEGATIVE N Specific Franklin (test code = 1.025 1.005-1.030 A USPGR) [...] MISC) None Seen None Seen N [facility]-AltonHEPATIC FUNCTION PANEL (LIVER)2016-10-09 18:21:00 Test Item Value [...] (test code = 0.1 mg/dl 0.0-1.1 IBIL) [facility]-[id number] 18:21:00 Test Item Value Reference Range Interpretation [...] mg/dl 8.4-10.2 = CALC) EGFR if >60 Chinese (test code mL/min/1.73m\\ = EGFRAA) S\\2 EGFR if Non- >60 Estimate d Glomerular Chinese (test code mL/min/1.73m\\ Filtrat ion Rate (eGFR) [...] and management of c hronic kidney failure. [facility]-LufkinCBC WITH AUTO [id number] 18:04:00 Test Item Value Reference Range Interpretation [...] (test code = 0 NRBC_AUTO) AUTO [facility]
[2023-05-12] MEDS ORDERED: NA CHLORIDE 0.9% 1,000 ML ONE (22:40)
[2023-05-12] MEDS ORDERED: FENTANYL CITR 100 MCG/2 ML ONE (22:40)
[2023-05-12 22:41] LABS: Absolute Lymphocytes (CBC) 2.8 K/uL (0.7-4.9); Hematocrit 36.9 % (36.0-45.0); Lymphocytes % 32.3 % (15.3-44.8); MCV 89.2 fL (80-100); MPV 7.2 fL (7.6-11.3); Platelets 266 thou/uL (152-406); RBC Red Blood Cell Count 4.13 M/uL (3.86-4.86)
[2023-05-12] MEDS ORDERED: PROMETHAZINE INJ 25 MG/ML AMP ONE (22:42)
[2023-05-12 22:58] LABS: Albumin 3.4 g/dL (3.4-5.0); Bilirubin Total 0.1 mg/dL (0.2-1.0); Potassium 3.4 mEq/L (3.5-5.1)
--- NOTE | 2023-05-12 23:09 | ER ---
Nurse's Notes [facility] Name: Hong Pace Age: 37 yrs Sex: Female : 1985 Arrival Date: 05/12/2023 Time: 22:01 Bed 20 Private MD: Diagnosis: Lower abdominal pain, unspecified Presentation: 05/12 22:05 Chief complaint: Patient states: I have endometriosis really bad and I'm having some vc1 severe abdominal pain. It started around 8 and it just won't ease up. 22:05 Coronavirus screen: Vaccine status: Patient reports receiving the 2nd dose of the covid vc1 vaccine. Linq[place] Client denies travel out of the [place] in the last 14 days. At this time, the client does not indicate any symptoms associated with coronavirus-19. Ebola Screen: Patient negative for fever greater than or equal to 101.5 degrees Fahrenheit, and additional compatible Ebola Virus Disease symptoms Patient denies exposure to infectious person. Patient denies travel to an Ebola-affected area in the 21 days before illness onset. No symptoms or risks identified at this time. Initial Sepsis Screen: Does the patient meet any 2 criteria? No. Patient's initial sepsis screen is negative. Does the patient have a suspected source of infection? No. Patient's initial sepsis screen is negative. Risk Assessment: Do you want to hurt yourself or someone else? Patient reports no desire to harm self or others. Onset of symptoms was May 12, 2023 at 20:00. 22:05 Method Of Arrival: Ambulatory vc1 22:05 Acuity: [place] 3 vc1 Triage Assessment: 22:05 General: Appears in no apparent distress. uncomfortable, Behavior is cooperative, vc1 appropriate for age. Pain: Complains of pain in right lower quadrant Pain does not radiate. Pain currently is 9 out of 10 on a pain scale. Quality of pain is described as sharp, Pain began suddenly, 2 hours ago. Is continuous, Noted to be guarding, Also complains of nausea. EENT: No deficits noted. No signs and/or symptoms were reported regarding the EENT system. Neuro: No deficits noted. [place]jillo Agitation-Sedation Scale (RASS): +1 Restless. Cardiovascular: No deficits noted. Respiratory: Airway is patent Respiratory effort is even, unlabored, Respiratory pattern is regular, symmetrical. GI: Reports lower abdominal pain, nausea. : No deficits noted. No signs and/or symptoms were reported regarding the genitourinary system. Derm: No deficits noted. No signs and/or symptoms reported regarding the dermatologic system. Musculoskeletal: No deficits noted. No signs and/or symptoms reported regarding the musculoskeletal system. 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 - Social history:: Smoking status: Patient reports the use of cigarette tobacco products, 1 pack per month. Screenin:07 [facility] ED Fall Risk Assessment (Adult) History of falling in the last 3 months, vc1 including since admission No falls in past 3 months (0 pts) Confusion or Disorientation No (0 pts) Intoxicated or Sedated No (0 pts) Impaired Gait No (0 pts) Mobility Assist Device Used No (0 pt) Altered Elimination No (0 pt) Score/Fall Risk Level 0 - 2 = Low Risk Oriented to surroundings, Maintained a safe environment, Educated pt \T\ family on fall prevention, incl call for assistance when getting out of bed. Abuse screen: Denies threats or abuse. Nutritional screening: No deficits noted. Tuberculosis screening: No symptoms or risk factors identified. Assessment: 23:14 Reassessment: Patient and/or family updated on plan of care and expected duration. Pain vc1 level reassessed. Patient is alert, oriented x 3, equal unlabored respirations, skin warm/dry/pink. PT states has to leave because daughter called saying her son is throwing up Patient states feeling better. Patient states symptoms have improved. Vital Signs: 22:05 BP 130 / 101; Pulse 116; Resp 18; Temp 98.1; Pulse Ox 100% ; Weight 104.33 kg; Height 5 vc1 ft. 4 in. ; Pain 9/10; 22:05 Body Mass Index 39.48 (104.33 kg, 162.56 cm) vc1 22:05 Pain Scale: Adult vc1 ED Course: 22:03 Patient arrived in ED. gm2 22:04 Gracy Limon PA-C is [facility]. sb4 22:04 Soledad Almodovar MD is Attending Physician. sb4 22:05 Arm band placed on right wrist. vc1 22:05 Patient has correct armband on for positive identification. Placed in gown. Bed in low vc1 position. Client placed on continuous cardiac and pulse oximetry monitoring. NIBP monitoring applied. 22:22 Alejandra Soler RN is Primary Nurse. vc1 22:23 Inserted saline lock: 20 gauge in right upper arm, using aseptic technique. Blood vc1 collected. 22:23 CBC with Diff Sent. vc1 22:23 CMP Sent. vc1 22:23 Lipase Sent. vc1 22:23 Urinalysis w/ reflexes Sent. vc1 22:47 Radiology exam delayed due to. eh4 23:04 Triage completed. vc1 23:15 No provider procedures requiring assistance completed. IV discontinued, intact, vc1 bleeding controlled, No redness/swelling at site. Pressure dressing applied. Administered Medications: 22:35 Drug: NS 0.9% IV 1000 ml IV at 1 bolus Per protocol; 1000 mL bolus Route: IV; Rate: 1 vc1 bolus; Site: right upper arm; 22:35 Drug: fentaNYL (PF) IVP 50 mcg IVP once Route: IVP; Site: right upper arm; vc1 23:02 Follow up: Response: No adverse reaction; No change in condition vc1 22:35 Drug: Promethazine IVP 12.5 mg IVP once Route: IVP; Site: right upper arm; vc1 23:02 Follow up: Response: No adverse reaction; Marked relief of symptoms vc1 23:02 Drug: HYDROmorphone IVP 0.5 mg IVP once Route: IVP; Site: right upper arm; vc1 Medication: 23:12 VIS not applicable for this client. vc1 Outcome: 23:09 Discharge ordered by . sb4 23:15 Discharged to home ambulatory, vc1 23:15 Condition: good 23:15 Discharge instructions given to patient, Instructed on discharge instructions, follow up and referral plans. Demonstrated understanding of instructions, follow-up care, 23:15 Patient left the ED. vc1 Signatures: Alejandra Soler RN RN vc1 Susana Mobley 4 Gracy Limon PA-C PA-C sb4 Juana Ordoñez gm2 Corrections: (The following items were deleted from the chart) 22:47 22:19 Radiology exam delayed due to lab results not completed at this time. eh4 (BUN/Creatinine) test not completed at this time. IV insertion attempt and/or patient not having appropriate IV at this time. eh4 23:06 22:05 PMHx: Thyroidectomy; vc1 vc1
--- NOTE | 2023-05-12 23:09 | EDPHYS ---
Physician Documentation [facility] Name: Hong Pace Age: 37 yrs Sex: Female : 1985 Arrival Date: 05/12/2023 Time: 22:01 Bed 20 Private MD: ED Physician Soledad Almodovar HPI: 05/13 00:44 This 37 yrs old Female presents to ER via Ambulatory with complaints of Abdominal Pain. sb4 00:44 The patient presents with abdominal pain in the lower abdomen. Onset: The sb4 symptoms/episode began/occurred today. The symptoms do not radiate. Associated signs and symptoms: Pertinent positives: nausea, Pertinent negatives: constipation, diarrhea, fever, vomiting. The symptoms are described as sharp. Modifying factors: The symptoms are alleviated by nothing, the symptoms are aggravated by nothing. Severity of pain: At its worst the pain was a 10 / 10 in the emergency department the pain is unchanged. The patient has experienced similar episodes in the past, multiple times, today's symptoms are similar. 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 - Social history:: Smoking status: Patient reports the use of cigarette tobacco products, 1 pack per month. ROS: 05/13 00:44 Constitutional: Negative for fever, chills, and weight loss, sb4 Abdomen/GI: Positive for abdominal pain, nausea, All other systems are negative, Exam: 00:44 Constitutional: This is a well developed, well nourished patient who is awake, alert, sb4 and in no acute distress. Head/Face: Normocephalic, atraumatic. Eyes: Extra-ocular motions intact. Periorbital areas with no swelling, redness, or edema. ENT: Mucous membranes moist. Cardiovascular: Regular rate and rhythm with a normal S1 and S2. Respiratory: Lungs have equal breath sounds bilaterally, clear to auscultation and percussion. No rales, rhonchi or wheezes noted. No increased work of breathing, no retractions or nasal flaring. Skin: Warm, dry with normal turgor. Normal color with no rashes, no lesions, and no evidence of cellulitis. MS/ Extremity: Pulses equal, no cyanosis. Neurovascular intact. Full, normal range of motion. 00:44 Abdomen/GI: Inspection: abdomen appears normal, Bowel sounds: normal, Palpation: soft, moderate abdominal tenderness, in the suprapubic area and right lower quadrant, Vital Signs: 05/12 22:05 BP 130 / 101; Pulse 116; Resp 18; Temp 98.1; Pulse Ox 100% ; Weight 104.33 kg; Height 5 vc1 ft. 4 in. ; Pain 9/10; 22:05 Body Mass Index 39.48 (104.33 kg, 162.56 cm) vc1 22:05 Pain Scale: Adult vc1 MDM: 22:05 Patient medically screened. sb4 05/13 00:44 Differential diagnosis: appendicitis, bowel obstruction, Ectopic , sb4 Endometriosis, non-specific abd pain, urinary tract infection. Data reviewed: vital signs, nurses notes, lab test result(s), and as a result, I will discharge patient. ED course: patient had a family emergency and had to leave prior to completion of work up. she states she will come back if her symptoms persist or worsen. 05/12 22:13 Order name: CBC with Diff; Complete Time: 22:44 sb4 05/12 22:13 Order name: CMP; Complete Time: 22:58 sb4 05/12 22:13 Order name: Lipase; Complete Time: 22:58 sb4 05/12 22:13 Order name: IV Saline Lock; Complete Time: 22:23 sb4 05/12 22:13 Order name: Labs collected and sent; Complete Time: 22:23 sb4 Administered Medications: 05/12 22:35 Drug: NS 0.9% IV 1000 ml IV at 1 bolus Per protocol; 1000 mL bolus Route: IV; Rate: 1 vc1 bolus; Site: right upper arm; 22:35 Drug: fentaNYL (PF) IVP 50 mcg IVP once Route: IVP; Site: right upper arm; vc1 23:02 Follow up: Response: No adverse reaction; No change in condition vc1 22:35 Drug: Promethazine IVP 12.5 mg IVP once Route: IVP; Site: right upper arm; vc1 23:02 Follow up: Response: No adverse reaction; Marked relief of symptoms vc1 23:02 Drug: HYDROmorphone IVP 0.5 mg IVP once Route: IVP; Site: right upper arm; vc1 Disposition Summary: 05/12/23 23:09 Discharge Ordered Notes: Location: Home sb4 Problem: new sb4 Symptoms: have improved sb4 Condition: Stable sb4 Diagnosis - Lower abdominal pain, unspecified sb4 Followup: sb4 - With: Emergency Department - When: As needed - Reason: Trouble breathing, Worsening of condition Discharge Instructions: - Discharge Summary Sheet sb4 - Abdominal Pain, Adult, [id number] sb4 Forms: - Medication Reconciliation Form sb4 - Thank You Letter sb4 - Antibiotic Education sb4 - Prescription Opioid Use sb4 - Patient Portal Instructions sb4 - Leadership Thank You Letter sb4 Signatures: Dispatcher [employer] Alejandra Christian RN RN vc1 Gracy Limon PA-C PA-C sb4 Corrections: (The following items were deleted from the chart) 23:06 22:05 PMHx: Thyroidectomy; vc1 vc1
[2023-05-12] MEDS ORDERED: HYDROMORPHONE HCL 0.5 MG/0.5 ML INJ ONE (23:13)
[2023-05-12 23:42] VITALS: BP 130/101; TEMP 98.1; O2SAT 100
== END 2023-05-12 23:15 | disposition home or self-care (01) ==
LOC: ER 22:01
DX: R10.31 Right lower quadrant pain (principal); R11.0 Nausea
CPT/HCPCS: 36415; 80053; 83690; 85025; 96374; 96375; 99284; J1170; J2550; J3010; J7030

== ENCOUNTER 2023-05-14 21:44 | Emergency (ER) | payer SELFPAY ==
--- OUTSIDE RECORDS SUMMARY | 2023-05-14 21:47 | XMS REPORT | Clinical Summary ---
:1985 Author Organization [facility] MD [facility] Address [address] [place] [address] Care Team Providers Name Role Phone Keila [...] OVARIAN CYST SURGERY 08/29/2018 - Right 09/28/2018 [place] EXCISION MAL LESION 09/23/2018 Abdomen/Right Procedure : EXCISION OF TRUNK/ARM/LEG 0.6-1.0 CM MALIGNA NT LESION OF TRUNK, right epi gastric; Surgeon: Nicolasa Valentine MD; Location: [facility] OR; Service: SURG ON C - [...] Vaccination (#1) 01/11/1987 Results Not on fileafter 05/14/2022 Advance Directives Code Status Date Activated Date Inactivated Comments Full Code 10/04/2018 8:21 PM 10/08/2018 5:55 PM Code Status Date Activated Date Inactivated Comments Full Code 09/23/2018 1:48 PM 09/23/2018 6:55 PM Care Teams [employer] Relationship Specialty Start Date End Date Keila Valentine MD PCP - General Surgical Oncology 08/26/18 [address] [place] [address] Navi Arango FNP PCP - External Primary Family Practice 09/08/18 Care Provider [facility] [place] [address] Nuria Sahu MD Consulting Physician Dermatology 10/20/18 [address] [place] [address]
--- OUTSIDE RECORDS SUMMARY | 2023-05-14 21:58 | XMS REPORT | Continuity of Care Document ---
:1985 Author Organization [facility] t Address [address] [place] [address] [place] [id number] Care Team Providers Name Role Phone Keila [...] Attending Clinician MONTSERRAT ACOSTA Attending Clinician Unavailable Eminence ACNP, Montserrat Attending Clinician SANTINO_Ingrid_Truman_ Attending Clinician Unavailable MAGDALENE LUCIA Attending Clinician Unavailable Magdalene Lucia MD Attending Clinician Unknown, Attending Attending Clinician Unavailable RIDGE PAGAN Attending Clinician Unavailable Ridge Pagan MD Attending Clinician Doctor Unassigned, [place] Attending Clinician Unavailable Truman Quintero Attending Clinician Unavailable TRICE HARRIS Attending Clinician Unavailable Steven WIRE COINERTrice Attending Clinician Ameena Dupree Attending Clinician AMEENA [...] Number Effective Date Expiration Date S ource [id number] 1958 00:00:00 MEDI-SHARE C1 [id number] [facility] MEDI-SHARE C1 [id number] [facility] MEDI-SHARE C1 [id number] [facility] [id number] 1958 00:00:00 MEDI-SHARE C1 [id number] [facility] PHCS GENERIC [id number] 2018 00:00:00 Problems Condition Condition Condition Status [...] site 4-07 [place] of [place] [facility] Encounter Encounter Disease Active Overview: Univers for other for other 3-11 Formattin i ty of preprocedu preprocedu 00:00: g of this [place] ral ral 00 note examinatio examinatimorena might júnior fernandez n from the Cancer original. Center [...] [facility] V/SA[facility] [id number] Endometrio Problem Active Co mmon ma [facility] No known No known Disease Unive rs active active ity of problems problems [facility] Allergies, Adverse Reactions, Alerts Allergy Allergy Status Severity Reaction(s) Onset Inactive Treating Comm ents Source Name Type Date Date Clinician [place] Active [place] rash 2021-07 [facility]24 [place] 00:[facility]: d 00 [facility] ketorola DA Active U rash [facility] 2-07 [place] 00:00: Orthope 00 [facility] [place] DRUG Active Low Rash 2020-07 Univers C INGREDI 08-22 ity of 00:00: [place] 00 [facility] Ket[place] Propensi Active Rash 2020-07 Univer s c ty to 08-22 ity of adverse 00:00: [place] reaction 00 [facility] [place] DA Active [place] 0 [facility] 9-10 [facility] [place] DA Active U [facility] c 9-24 [place] 00:00: d 00 [facility] ket[place]ola DA Active U rash 0 [facility] c 9-24 [place] 00:00: d 00 [facility] [place] Drug Active Itching Univers c Allergy 07-19 ity of 00:00: [place] 00 MD [facility] KETOROLA DRUG Active Med Itching MD Duarte INGREDI 07-19 Gian 00:00: n 00 Toradol DA Active Unknown Rash [facility] (LUF/LI V/SA) 0 Drug Active Unknown Common allergy [facility] Family History Family Member Diagnosis Comments Start Date Stop Date Source Natural mother -Breast cancer [facility] MD Naif Ayoub [facility] Social History Social Habit Start Date Stop Date Quantity Comments Source Sexual orientation [facility] MD [facility] [place] History of Tobacco [facility] - Use [facility] ASSERTION [facility] Gender identity Universit y [facility] Exposure to 2022-11-10 2022-11-[address] [facility] SARS-CoV-2 (event) 00:00:00 21:50:00 [facility] Tobacco use and 2021-08-29 2021-08-29 Smokeless Universit y of exposure 00:00:00 00:00:00 tobacco non-user [facility] [place] History of Social 2019-10-10 2019-10-10 Univers ity of function 00:00:00 00:00:00 [place] MD [facility] Alcohol intake 2018-10-04 2018-10-04 Current University of 00:00:00 00:00:00 non-drinker of [place] MD Lila muñoz [facility] (finding) Cigarettes smoked 2018-09-04 2018-09-04 Univers ity of current (pack per 00:00:00 00:00:00 [place] Zoltan Neely ) - Reported Cancer Ce nter Cigarette 2018-09-04 2018-09-04 University of pack-years 00:00:00 00:00:00 [place] MD [facility] Sex Assigned At [birth year] Universit y of 00:00:00 00:00:00 [place] MD [facility] Smoking Status Start Date Stop Date Source Tobacco smoking [facility] consumption unknown Never smoked tobacco [facility] Former Smoker 2020-05-03 00:00:00 2020-05-03 [...] ONCE, 1 Medical 50 mcg dose, On [facility] 03/19/23 at 0030, Routine FENTanyl PF 2022- No 50ug 50 mcg, Un spring (SUBLIMAZE 03-19 Slow IV ity o f (PF)) 05:30: 04:42 Push, [place] injection 00 :00 ONCE, 1 Medical 50 mcg dose, On Branch [facility] 03/19/23 at 0030, Routine acetaminoph 2022- No 975mg 975 mg, U nivers en 12-25 Oral, ity of (TYLENOL) 05:30: 17:29 ONCE, 1 [place] tablet 975 00 :00 dose, On Medic al mg [facility] 12/25/22 at 0030, JOSE ondansetron 2022- No 4mg 4 mg, Slow Univers (ZOFRAN 12-25 IV Push, ity of (PF)) 05:30: 17:29 ONCE, 1 [place] injection 4 00 :00 dose, On Medi felipa mg [facility] 12/25/22 at 0030, JOSE NaCl 0.9% 2022- No 1000mL at 999 Uni vers (NS) bolus 12-16 mL/hr, ity of infusion 23:30: 00:19 1,000 mL, [place] 1,000 mL 00 :00 IV Medical Piggyback, [place] ONCE, 1 dose, On [facility] 12/16/22 at 1830, STAT famotidine 2022- No 20mg 20 mg, Univ ers (PEPCID 12-16 Slow IV ity of (PF)) 23:00: 22:58 Push, [place] injection 00 :00 ONCE, 1 Medical 20 mg dose, On Branch [facility] 12/16/22 at 1800, JOSE FENTanyl PF 2022-0 2022- No 75ug [...] IV 1745, JOSE piggyback proMETHazin 2022-0 Yes [id number] 25mg Take 1 Univers e 25 mg 6-18 tablet by ity of tablet 00:00: mouth [place] 00 every 6 Medical (six) Branch hours as needed for Nausea and Vomiting (N/V). proMETHazin 2022-0 Yes [id number] 25mg Take 1 Univers e 25 mg 6-18 tablet by ity of tablet 00:00: mouth [place] 00 every 6 Medical (six) Branch hours as needed for Nausea and Vomiting (N/V). proMETHazin 2022-0 Yes [id number] 25mg Take 1 Univers e 25 mg 6-18 tablet by ity of tablet 00:00: mouth [place] 00 every 6 Medical (six) Branch hours as needed for Nausea and Vomiting (N/V). proMETHazin 2022-0 Yes [id number] 25mg Take 1 Univers e 25 mg 6-18 tablet by ity of tablet 00:00: mouth [place] 00 every 6 Medical (six) Branch hours as needed for Nausea and Vomiting (N/V). cefdinir 2022-2022- No [id number] 300mg Take 1 U nivers 300 mg 12-16 capsule by ity of capsule 00:00: 04:59 mouth in [place] 00 :00 the Medical morning Branch and 1 capsule in the evening. Do all this for 7 days. iopamidol 2022-2022- No [id number] 100mL 100 mL, Univers (ISOVUE 11-21-24 Intravenou ity o f 370-500 mL) 06:30: 05:32 s, ONCE, 1 [place] injection 00 :00 dose, On Medica l 100 mL Wed Branch 11/21/22 at 0130, Routine FENTanyl PF 2022-2022- No 50ug 50 [...] Branch Sat11/20/22 at 2330, Routine NaCl 0.9% 2022-0 2022- No 1000mL at 999 Uni vers (NS) bolus 11-21 mL/hr, ity of infusion 04:30: 05:11 1,000 mL, [place] 1,000 mL 00 :00 IV Medical Infusion, Branch ONCE, 1 dose, On Sat11/20/22 at 2330, JOSE proMETHazin 2022- No 12.5mg 12.5 mg, Univers e 11-21 IV ity of (PHENERGAN) 03:45: 03:41 Piggyback, [place] 12.5 mg in 00 :00 ONCE, 1 Medica l NaCl 0.9% dose, On Branch (NS) 50 mL Tue IV 11/20/22 at piggyback 2245, JOSE FENTanyl PF 2022-0 2022- No 75ug 75 mcg, Un spring (SUBLIMAZE 10-26 Slow IV ity o f (PF)) 05:15: 05:20 Push, [place] injection 00 :00 ONCE, 1 Medical 75 mcg dose, On Branch Sat10/26/22 at 0015, STAT NaCl 0.9% 2022-0 2022- No 1000mL at 999 Uni vers [...] 10/02/22 at 2345, JOSE ondansetron 2021-07- No [id number] 8mg Univers (ZOFRAN-ODT 08-15 ity of ) 00:45: 23:45 [place] disintegrat 00 :00 Medical ing tablet Branch 8 mg ondansetron 2021-07- No [id number] 8mg 8 mg, Univers (ZOFRAN-ODT -06-13 Oral, ity of ) 00:45: 23:45 ONCE, 1 [place] disintegrat 00 :00 dose, On Medi felipa ing tablet Wed Branch 8 mg 06/13/22 at 1845, Routine benzonatate 2021-07 Yes [id number] 200mg Take 2 Univers 100 mg 2-14 capsules ity of capsule 00:00: by mouth [place] 00 every 8 Medical (eight) Branch hours as needed for Cough. ondansetron 2021-07 Yes [id number] 4mg Take 1 Univers 4 mg 2-14 tablet by ity of disintegrat 00:00: mouth [place] ing tablet 00 every 8 Medica l (eight) Branch hours as needed for Nausea and Vomiting (N/V). nirmatrelvi 2021-07 Yes [id number] 3{tbl} Take 3 Univers r-ritonavir 2-14 tablets by it y of (PAXLOVID, 00:00: mouth in [place] EUA,) 300 00 the Medical mg (150 mg morning Branch x 2)-100 mg and 3 tablet tablets in the evening. ondansetron 2021-07 Yes [id number] 4mg Take 1 Univers 4 mg 2-14 tablet by ity of disintegrat 00:00: mouth [place] ing tablet 00 every 8 Medica l (eight) Branch hours as needed for Nausea and Vomiting (N/V). nirmatrelvi 2021-07 Yes [id number] 3{tbl} Take 3 Univers r-ritonavir 2-14 tablets by it y of (PAXLOVID, 00:00: mouth in [place] EUA,) 300 00 the Medical mg (150 mg morning Branch x 2)-100 mg and 3 tablet tablets in the evening. promethazin 2021-07 Yes [id number] 5mL Take 5 mL Univers e-dextromet 2-14 by mouth 4 it y of horphan 00:00: (four) [place] 6.25-15 00 times Medical mg/5 mL daily as Branch syrup needed for Cough. ondansetron 2021-07 Yes [id number] 4mg Take 1 Univers 4 mg 2-14 tablet by ity of disintegrat 00:00: mouth [place] ing tablet 00 every 8 Medica l (eight) Branch hours as needed for Nausea and Vomiting (N/V). nirmatrelvi 2021-07 Yes [id number] 3{tbl} Take 3 Univers r-ritonavir 2-14 tablets by it y of (PAXLOVID, 00:00: mouth in [place] EUA,) 300 00 the Medical mg (150 mg morning Branch x 2)-100 mg and 3 tablet tablets in the evening. promethazin 2021-07 Yes [id number] 5mL Take 5 mL Univers e-dextromet 2-14 by mouth 4 it y of horphan 00:00: (four) [place] 6.25-15 00 times Medical mg/5 mL daily as Branch syrup needed for Cough. ondansetron 2021-07 Yes [id number] 4mg Take 1 Univers 4 mg 2-14 tablet by ity of disintegrat 00:00: mouth [place] ing tablet 00 every 8 Medica l (eight) Branch hours as needed for Nausea and Vomiting (N/V). nirmatrelvi 2021-07 Yes [id number] 3{tbl} Take 3 Univers r-ritonavir 2-14 tablets by it y of (PAXLOVID, 00:00: mouth in [place] EUA,) 300 00 the Medical mg (150 mg morning Branch x 2)-100 mg and 3 tablet tablets in the evening. promethazin 2021-07 Yes [id number] 5mL Take 5 mL Univers e-dextromet 2-14 by mouth 4 it y of horphan 00:00: (four) [place] 6.25-15 00 times Medical mg/5 mL daily as Branch syrup needed for Cough. ondansetron 2021-07 Yes [id number] 4mg Take 1 Univers 4 mg 2-14 tablet by ity of disintegrat 00:00: mouth [place] ing tablet 00 every 8 Medica l (eight) Branch hours as needed for Nausea and Vomiting (N/V). nirmatrelvi 2021-07 Yes [id number] 3{tbl} Take 3 Univers r-ritonavir 2-14 tablets by it y of (PAXLOVID, 00:00: mouth in [place] EUA,) 300 00 the Medical mg (150 mg morning Branch x 2)-100 mg and 3 tablet tablets in the evening. promethazin 2021-07 Yes [id number] 5mL Take 5 mL Univers e-dextromet 2-14 by mouth 4 it y of horphan 00:00: (four) [place] 6.25-15 00 times Medical mg/5 mL daily as Branch syrup needed for Cough. ondansetron 2021-07 Yes [id number] 4mg Take 1 Univers 4 mg 2-14 tablet by ity of disintegrat 00:00: mouth [place] ing tablet 00 every 8 Medica l (eight) Branch hours as needed for Nausea and Vomiting (N/V). nirmatrelvi 2021-07 Yes [id number] 3{tbl} Take 3 Univers r-ritonavir 2-14 tablets by it y of (PAXLOVID, 00:00: mouth in [place] EUA,) 300 00 the Medical mg (150 mg morning Branch x 2)-100 mg and 3 tablet tablets in the evening. promethazin 2021-07 Yes [id number] 5mL Take 5 mL Univers e-dextromet 2-14 by mouth 4 it y of horphan 00:00: (four) [place] 6.25-15 00 times Medical mg/5 mL daily as Branch syrup needed for Cough. ondansetron 2021-07 Yes [id number] 4mg Take 1 Univers 4 mg 2-14 tablet by ity of disintegrat 00:00: mouth [place] ing tablet 00 every 8 Medica l (eight) Branch hours as needed for Nausea and Vomiting (N/V). nirmatrelvi 2021-07 Yes [id number] 3{tbl} Take 3 Univers r-ritonavir 2-14 tablets by it y of (PAXLOVID, 00:00: mouth in [place] EUA,) 300 00 the Medical mg (150 mg morning Branch x 2)-100 mg and 3 tablet tablets in the evening. promethazin 2021-07 Yes [id number] 5mL Take 5 mL Univers e-dextromet 2-14 by mouth 4 it y of horphan 00:00: (four) [place] 6.25-15 00 times Medical mg/5 mL daily as Branch syrup needed for Cough. ondansetron 2021-07 Yes [id number] 4mg Take 1 Univers 4 mg 2-14 tablet by ity of disintegrat 00:00: mouth [place] ing tablet 00 every 8 Medica l (eight) Branch hours as needed for Nausea and Vomiting (N/V). nirmatrelvi 2021-07 Yes [id number] 3{tbl} Take 3 Univers r-ritonavir 2-14 tablets by it y of (PAXLOVID, 00:00: mouth in [place] EUA,) 300 00 the Medical mg (150 mg morning Branch x 2)-100 mg and 3 tablet tablets in the evening. promethazin 2021-07 Yes [id number] 5mL Take 5 mL Univers e-dextromet 2-14 by mouth 4 it y of horphan 00:00: (four) [place] 6.25-15 00 times Medical mg/5 mL daily as Branch syrup needed for Cough. ondansetron 2021-07 Yes [id number] 4mg Take 1 Univers 4 mg 2-14 tablet by ity of disintegrat 00:00: mouth [place] ing tablet 00 every 8 Medica l (eight) Branch hours as needed for Nausea and Vomiting (N/V). nirmatrelvi 2021-07 Yes [id number] 3{tbl} Take 3 Univers r-ritonavir 2-14 tablets by it y of (PAXLOVID, 00:00: mouth in [place] EUA,) 300 00 the Medical mg (150 mg morning Branch x 2)-100 mg and 3 tablet tablets in the evening. promethazin 2021-07 Yes [id number] 5mL Take 5 mL Univers e-dextromet 2-14 by mouth 4 it y of horphan 00:00: (four) [place] 6.25-15 00 times Medical mg/5 mL daily as Branch syrup needed for Cough. nirmatrelvi 2021-07- No [id number] 3{tbl} Take 3 Univers r-ritonavir 2-14 12-14 tablets by i ty of (PAXLOVID, 00:00: 00:00 [place] in [place] EUA,) 300 00 :00 the Medical mg (150 mg morning Branch x 2)-100 mg and 3 tablet tablets in the evening. benzonatate 2021-07- No [id number] 200mg Take 2 Univers 100 mg 2-14 [...] n: Perioperat melvin Patient tamsulosin 2021-07 Yes [id number] .4mg Take 1 U nivers 0.4 mg 24 07-07 capsule by ity of hr capsule 00:00: mouth at [place] 00 bedtime. Medical Branch tamsulosin 2021-07- No [id number] .4mg Take 1 Univers 0.4 mg 24 [...] On Sat02/19/22 at 1030, JOSE morpHINE (4 0 2021- No 4mg 4 mg, Slow Univers [...] Hospital Branch 02/19/22 at 0930, JOSE methylPREDN 2021-0 Yes [id number] Take by [place] [facility] ISolone 11-29 mouth ity of (MEDROL, 00:00: SEE-INSTRU [place] TE,) 4 mg 00 CTIONS. Medica l tablets follow Branch package directions methylPREDN 2021-0 Yes [id number] Take by [employer] ISolone 11-29 mouth ity of (MEDROL, 00:00: SEE-INSTRU [place] TE,) 4 mg 00 CTIONS. Medica l tablets follow Branch package directions methylPREDN 2021-0 Yes [id number] Take by [employer] ISolone 11-29 mouth ity of (MEDROL, 00:00: SEE-INSTRU [place] TE,) 4 mg 00 CTIONS. Medica l tablets follow Branch package directions methylPREDN 2021-0 2021- No [id number] Take by [employer] ISolone 11-29 12-14 mouth ity of (MEDROL, 00:00: 00:00 [place] TE,) 4 mg 00 :00 CTIONS. Medica l tablets follow Branch package directions amoxicillin 2021-0 2021- No [id number] 1{tbl} Take 1 Univers -clavulanat 11-29 tablet by it y of e [id number] 00:00: 04:59 mouth 2 [place] mg per 00 :00 (two) Medical tablet times Branch daily for 7 days. codeine-gua 2021-0 2021- No [id number] 5mL Take 5 mL [...] ORAL) 44 Medical Branch naproxen 2021-0 Yes [id number] 500mg Take 1 U nivers (NAPROSYN) 2-02 tablet by ity of 500 mg 00:00: mouth 2 [place] tablet 00 (two) Medical times Branch daily with meals. naproxen 2022-0 Yes [id number] 500mg Take 1 U nivers (NAPROSYN) 2-02 tablet by ity of 500 mg 00:00: mouth 2 [place] tablet 00 (two) Medical times Branch daily with meals. naproxen 2022-0 Yes [id number] 500mg Take 1 U nivers (NAPROSYN) 2-02 tablet by ity of 500 mg 00:00: mouth 2 [place] tablet 00 (two) Medical times Branch daily with meals. naproxen 2022-0 Yes [id number] 500mg Take 1 U nivers (NAPROSYN) 2-02 tablet by ity of 500 mg 00:00: mouth 2 [place] tablet 00 (two) Medical times Branch daily with meals. naproxen 2022-0 Yes [id number] 500mg Take 1 U nivers (NAPROSYN) 2-02 tablet by ity of 500 mg 00:00: mouth 2 [place] tablet 00 (two) Medical times Branch daily with meals. naproxen 2022-0 Yes [id number] 500mg Take 1 U nivers (NAPROSYN) 2-02 tablet by ity of 500 mg 00:00: mouth 2 [place] tablet 00 (two) Medical times Branch daily with meals. naproxen 2022-0 Yes [id number] 500mg Take 1 U nivers (NAPROSYN) 2-02 tablet by ity of 500 mg 00:00: mouth 2 [place] tablet 00 (two) Medical times Branch daily with meals. naproxen 2022-0 Yes [id number] 500mg Take 1 U nivers (NAPROSYN) 2-02 tablet by ity of 500 mg 00:00: mouth 2 [place] tablet 00 (two) Medical times Branch daily with meals. naproxen 2022-0 Yes [id number] 500mg Take 1 U nivers (NAPROSYN) 2-02 tablet by ity of 500 mg 00:00: mouth 2 [place] tablet 00 (two) Medical times Branch daily with meals. naproxen 2022-0 Yes [id number] 500mg Take 1 U nivers (NAPROSYN) 2-02 tablet by ity of 500 mg 00:00: mouth 2 [place] tablet 00 (two) Medical times Branch daily with meals. naproxen 2022-0 Yes [id number] 500mg Take 1 U nivers (NAPROSYN) 2-02 tablet by ity of 500 mg 00:00: mouth 2 [place] tablet 00 (two) Medical times Branch daily with meals. naproxen 2021-0 Yes [id number] 500mg Take 1 U nivers (NAPROSYN) 2-02 tablet by ity of 500 mg 00:00: mouth 2 [place] tablet 00 (two) Medical times Branch daily with meals. naproxen 2021-0 Yes [id number] 500mg Take 1 U nivers (NAPROSYN) 2-02 tablet by ity of 500 mg 00:00: mouth 2 [place] tablet 00 (two) Medical times Branch daily with meals. albuterol 2020-07 Yes [id number] 2{puff} Inhale 2 Univers 90 2-22 Puffs [...] Cough. Indication s: cough albuterol 2020-07 Yes [id number] 2{puff} Inhale 2 Univers 90 2-22 Puffs [...] Cough. Indication s: cough albuterol 2020-07 Yes [id number] 2{puff} Inhale 2 Univers 90 2-22 Puffs [...] Cough. Indication s: cough albuterol 2020-07 Yes [id number] 2{puff} Inhale 2 Univers 90 2-22 Puffs [...] Cough. Indication s: cough albuterol 2020-07 Yes [id number] 2{puff} Inhale 2 Univers 90 2-22 Puffs ity of mcg/actuati 00:00: every 6 [place] on inhaler 00 (six) Medical hours as Branch needed for Wheezing or Bronchospa sm. albuterol 2020-07 Yes [id number] 2{puff} Inhale 2 Univers 90 2-22 Puffs ity of mcg/actuati 00:00: every 6 [place] on inhaler 00 (six) Medical hours as Branch needed for Wheezing or Bronchospa sm. albuterol 2020-07 Yes [id number] 2{puff} Inhale 2 Univers 90 2-22 Puffs ity of mcg/actuati 00:00: every 6 [place] on inhaler 00 (six) Medical hours as Branch needed for Wheezing or Bronchospa sm. albuterol 2020-07 Yes [id number] 2{puff} Inhale 2 Univers 90 2-22 Puffs ity of mcg/actuati 00:00: every 6 [place] on inhaler 00 (six) Medical hours as Branch needed for Wheezing or Bronchospa sm. albuterol 2020-07 Yes [id number] 2{puff} Inhale 2 Univers 90 2-22 Puffs ity of mcg/actuati 00:00: every 6 [place] on inhaler 00 (six) Medical hours as Branch needed for Wheezing or Bronchospa sm. albuterol 2020-07 Yes [id number] 2{puff} Inhale 2 Univers 90 2-22 Puffs ity of mcg/actuati 00:00: every 6 [place] on inhaler 00 (six) Medical hours as Branch needed for Wheezing or Bronchospa sm. albuterol 2020-07 Yes [id number] 2{puff} Inhale 2 Univers 90 2-22 Puffs ity of mcg/actuati 00:00: every 6 [place] on inhaler 00 (six) Medical hours as Branch needed for Wheezing or Bronchospa sm. albuterol 2020-07 Yes [id number] 2{puff} Inhale 2 Univers 90 2-22 Puffs ity of mcg/actuati 00:00: every 6 [place] on inhaler 00 (six) Medical hours as Branch needed for Wheezing or Bronchospa sm. albuterol 2020-07 Yes [id number] 2{puff} Inhale 2 Univers 90 2-22 Puffs [...] [place] 00 EVERY DAY Medical IN THE [place] MORNING ON AN EMPTY STOMACH levothyroxi 2020-07 Yes TAKE 1 Univ ers ne 137 mcg 2-16 TABLET BY ity of tablet 00:00: MOUTH [place] 00 EVERY DAY Medical IN THE [place] MORNING ON AN EMPTY STOMACH levothyroxi 2020-07 Yes TAKE 1 Univ ers ne 137 mcg 2-16 TABLET BY ity of tablet 00:00: MOUTH [place] 00 EVERY DAY Medical IN THE [place] MORNING ON AN EMPTY STOMACH levothyroxi 2020-07 Yes TAKE 1 Univ ers ne 137 mcg 2-16 TABLET BY ity of tablet 00:00: MOUTH [place] 00 EVERY DAY Medical IN THE [place] MORNING ON AN EMPTY STOMACH levothyroxi 2020-07 Yes TAKE 1 Univ ers ne 137 mcg 2-16 TABLET BY ity of tablet 00:00: MOUTH [place] 00 EVERY DAY Medical IN THE [place] MORNING ON AN EMPTY STOMACH levothyroxi 2020-07 Yes TAKE 1 Univ ers ne 137 mcg 2-16 TABLET BY ity of tablet 00:00: MOUTH [place] 00 EVERY DAY Medical IN THE [place] MORNING ON AN EMPTY STOMACH levothyroxi 2020-07 Yes TAKE 1 Univ ers ne 137 mcg 2-16 TABLET BY ity of tablet 00:00: MOUTH [place] 00 EVERY DAY Medical IN THE [place] MORNING ON AN EMPTY STOMACH levothyroxi 2020-07 Yes TAKE 1 Univ ers ne 137 mcg 2-16 TABLET BY ity of tablet 00:00: MOUTH [place] 00 EVERY DAY Medical IN THE [place] MORNING ON AN EMPTY STOMACH levothyroxi 2020-07 Yes TAKE 1 Univ ers ne 137 mcg 2-16 TABLET BY ity of tablet 00:00: MOUTH [place] 00 EVERY DAY Medical IN THE [place] MORNING ON AN EMPTY STOMACH levothyroxi 2020-07 Yes TAKE 1 Univ ers ne 137 mcg 2-16 TABLET BY ity of tablet 00:00: MOUTH [place] 00 EVERY DAY Medical IN THE [place] MORNING ON AN EMPTY STOMACH levothyroxi 2020-07 Yes TAKE 1 Univ ers ne 137 mcg 2-16 TABLET BY ity of tablet 00:00: MOUTH [place] 00 EVERY DAY Medical IN THE [place] MORNING ON AN EMPTY STOMACH levothyroxi 2020-07 Yes TAKE 1 Univ ers ne 137 mcg 2-16 TABLET BY ity of tablet 00:00: MOUTH [place] 00 EVERY DAY Medical IN THE [place] MORNING ON AN EMPTY STOMACH levothyroxi 2020-07 Yes TAKE 1 Univ ers ne 137 mcg 2-16 TABLET BY ity of tablet 00:00: MOUTH [place] 00 EVERY DAY Medical IN THE [place] MORNING ON AN EMPTY STOMACH acetaminoph acetaminoph [...] of (PREMARIN 00:00: daily. [place] ORAL) 00 [facility] estrogens, 2018-07 Yes Take by Univ ers conjugated 0-23 mouth ity of (PREMARIN 00:00: daily. [place] ORAL) 00 [facility] Yes Take by Univ ers conjugated 0-23 mouth ity of (PREMARIN 00:00: daily. [place] ORAL) 00 [facility], 2018-07 Yes Take by Univ ers conjugated 0-23 mouth ity of (PREMARIN 00:00: daily. [place] ORAL) 00 [facility], 2018-07 Yes Take by Univ ers conjugated 0-23 mouth ity of (PREMARIN 00:00: daily. [place] ORAL) 00 [facility], 2018-07 Yes Take by Univ ers conjugated 0-23 mouth ity of (PREMARIN 00:00: daily. [place] ORAL) 00 MD [facility] estrogens, 2018-07 Yes Take by Univ ers conjugated 0-23 mouth ity of (PREMARIN 00:00: daily. [place] ORAL) 00 [facility] est[facility], 2018-07 Yes Take by Univ ers conjugated 0-23 mouth ity of (PREMARIN 00:00: daily. [place] ORAL) 00 [facility] estrogens, 2018-07 Yes Take by Univ ers conjugated 0-23 mouth ity of (PREMARIN 00:00: daily. [place] ORAL) 00 [facility] estrogens, 2018-07 Yes Take by Univ ers conjugated 0-23 mouth ity of (PREMARIN 00:00: daily. [place] ORAL) 00 [facility] estrogens, 2018-07 Yes Take by Univ ers conjugated 0-23 mouth ity of (PREMARIN 00:00: daily. [place] ORAL) [facility] estrogens, 2018-07 Yes Take by Univ ers conjugated 0-23 mouth ity of (PREMARIN 00:00: daily. [place] ORAL) 00 [facility] estrogens, 2018-07 Yes Take by Univ ers conjugated 0-23 mouth ity of (PREMARIN 00:00: daily. [place] [facility]) [facility] estrogens, 2018-07 Yes Take by Univ ers conjugated 0-23 mouth ity of (PREMARIN 00:00: daily. [place] [facility]) [facility] estrogens, 2018-07 Yes Take by Univ ers conjugated 0-23 mouth ity of (PREMARIN 00:00: daily. [place]) [facility] estrogens, 2018-07 Yes Take by Univ ers conjugated 0-23 mouth ity of (PREMARIN 00:00: daily. [place]) 00 [facility] estrogens, 2018-07 Yes Take by Univ ers conjugated 0-23 mouth ity of (PREMARIN 00:00: daily. [place]) 00 [facility] estrogens, 2018-07 Yes Take by Univ ers conjugated 0-23 mouth ity of (PREMARIN 00:00: daily. [place] ORAL) 00 [facility] estrogens, 2018-07 Yes Take by Univ ers conjugated 0-23 mouth ity of (PREMARIN 00:00: daily. [place] ORAL) 00 [facility] estrogens, 2018-07 Yes Take by Univ ers conjugated 0-23 mouth ity of (PREMARIN 00:00: daily. [place]AL) 00 [facility] estrogens, 2018-07 Yes Take by Univ ers conjugated 0-23 mouth ity of (PREMARIN 00:00: daily. [place] ORAL) 00 [facility], [facility] Yes Take by Univ ers conjugated 0-23 mouth ity of (PREMARIN 00:00: daily. [place] ORAL) 00 [facility] estrogens, 2018-07 Yes Take by Univ ers conjugated 0-23 mouth ity of (PREMARIN 00:00: daily. [place] ORAL) 00 [facility] estrogens, 2018-07 Yes Take by Univ ers conjugated 0-23 mouth ity of (PREMARIN 00:00: daily. [place] ORAL) 00 [facility] Premarin Premarin 2018-07 Yes Kaywin 1 tablet Common 0-23 [facility] 00:[facility]: - [facility] 00 [facility] Premarin Premarin 2018-07 No 1{table QD Premarin 1.25 MG 1.25 MG 0-23 t} 1.25 MG 00:00: 00 estrogens, 2018-07 Yes Take by Univ ers conjugated 0-23 mouth ity of (PREMARIN 00:00: daily. [place] ORAL) 00 [facility] estrogens, 2018-07 Yes Take by Univ ers conjugated 0-23 mouth ity of (PREMARIN 00:00: daily. [place] ORAL) 00 [facility] Estradiol Estradiol 2018-07 Yes Kaywin 1 tablet Common 0-01 [facility] 00:[facility]: - [facility] 00 [facility] citalopram Yes Univers (CeleXA) 40 9-10 ity of mg tablet 00:00: [place] 00 [facility]italopram Yes Univers (CeleXA) 40 9-10 ity of mg tablet 00:00: MD Gian payton [facility] citalopram Yes Univers (CeleXA) 40 9-10 ity of mg tablet 00:00: MD [facility] citalopram Yes Univers (CeleXA) 40 9-10 ity of mg tablet 00:00: MD Gian payton [facility] citalopram Yes Univers (CeleXA) 40 9-10 ity of mg tablet 00:00: [place] [facility] Yes Univers (CeleXA) 40 9-10 ity of mg tablet 00:00: [facility] 2018-0 Yes Univers (CeleXA) 40 9-10 ity of mg tablet 00:00: [facility] 0 Yes Univers (CeleXA) 40 9-10 ity of mg tablet 00:00: [facility] Yes Univers (CeleXA) 40 9-10 ity of mg tablet 00:00: [facility] Yes Univers (CeleXA) 40 9-10 ity of mg tablet 00:00: [facility] 0 Yes Univers (CeleXA) 40 9-10 ity of mg tablet 00:00: [facility] 0 Yes Univers (CeleXA) 40 9-10 ity of mg tablet 00:00: [facility] 0 Yes Univers (CeleXA) 40 9-10 ity of mg tablet 00:00: [facility] Yes Univers (CeleXA) 40 9-10 ity of mg tablet 00:00: [facility] Yes Univers (CeleXA) 40 9-10 ity of mg tablet 00:00: [facility] citalopra [id number] Yes Univers (CeleXA) 40 9-10 ity of mg tablet 00:00: [facility] Yes Univers (CeleXA) 40 9-10 ity of mg tablet 00:00: [facility] [id number] Yes Univers (CeleXA) 40 9-10 ity of mg tablet 00[facility]00: [facility] [id number] Yes Univers (CeleXA) 40 9-10 ity of mg tablet 00:00: MD Gian payton [facility] citalopra Yes Univers (CeleXA) 40 9-10 ity of mg tablet 00:00: MD Gian payton [facility] citalopra Yes Univers (CeleXA) 40 9-10 ity of mg tablet 00:00: MD Gian payton [facility] citalopra Yes Univers (CeleXA) 40 9-10 ity of mg tablet 00:00: MD Gian payton [facility] citalopra Yes Univers (CeleXA) 40 9-10 ity of mg tablet 00:00: MD Gian payton [facility] Yes Univers (CeleXA) 40 9-10 ity of mg tablet 00:00: MD Gian payton [facility] Yes Univers (CeleXA) 40 9-10 ity of mg tablet 00:00: MD Gian payton [facility] citalopra Yes Univers (CeleXA) 40 9-10 ity of mg tablet 00:00: MD Gian payton [facility] levothyroxi 0 Yes Univer s ne 175 mcg 8-10 ity of cap 00:00: MD Gian payton [facility] levothyroxi 0 Yes Univer s ne 175 mcg 8-10 ity of cap 00:00: MD [facility] levothyroxi 0 Yes Univer s ne 175 mcg 8-10 ity of cap 00:00: [facility] levothyroxi 0 Yes Univer s ne 175 mcg 8-10 ity of cap 00:00: [facility] levothyroxi 0 Yes Univer s ne 175 mcg 8-10 ity of cap 00:00: MD [facility] levothyroxi 0 Yes Univer s ne 175 mcg 8-10 ity of cap 00:00: MD [facility] levothyroxi Yes Univer s ne 175 mcg [...] of cap 00:00: [place] 00 [facility] levothyroxi 2010-0 Yes Univer s ne 175 mcg 8-10 ity of cap 00:00: [place] 00 [facility] levothyroxi 2010-0 Yes Univer s ne 175 mcg 8-10 ity of cap 00:00: 00 [facility] levothyroxi 2010-0 Yes Univer s ne 175 mcg 8-10 ity of cap 00:00[facility] levothyroxi 2010-0 Yes Univer s ne 175 mcg 8-10 ity of cap 00:00: 00 [facility] zolpidem 2006-0 Yes Univers (AMBIEN) 10 07-01 ity of mg tablet 00:00: [place] 00 MD Gian payton [facility] zolpidem 2007-0 Yes Univers (AMBIEN) 10 07-01 ity of mg tablet 00:00: [place] 00 MD Gian payton [facility] zolpidem 2007-0 Yes Univers (AMBIEN) 10 07-01 ity of mg tablet 00:00: [place] 00 MD Gian payton [facility] zolpidem 2007-0 Yes Univers (AMBIEN) 10 07-01 ity of mg tablet 00:00: [place] 00 MD [facility] zolpidem 2007-0 Yes Univers (AMBIEN) 10 07-01 ity of mg tablet 00:00: [place] 00 MD [facility] zolpidem 2007-0 Yes Univers (AMBIEN) 10 07-01 ity of mg tablet 00:00: [place] 00 MD [facility] zolpidem 2007-0 Yes Univers (AMBIEN) 10 07-01 ity of mg tablet 00:00: [place] 00 MD [facility] zolpidem 2007-0 Yes Univers (AMBIEN) 10 07-01 ity of mg tablet 00:00: [place] 00 MD [facility] zolpidem 2007-0 Yes Univers (AMBIEN) 10 07-01 ity of mg tablet 00:00: [place] 00 MD [facility] zolpidem 2007-0 Yes Univers (AMBIEN) 10 07-01 ity of mg tablet 00:00: [place] 00 MD [facility] zolpidem 2007-0 Yes Univers (AMBIEN) 10 07-01 ity of mg tablet 00:00: [place] 00 [facility]nan [facility] zolpidem 2007-0 Yes Univers (AMBIEN) 10 07-01 ity of mg tablet 00:00: [place] 00 [facility] zolpidem 2007-0 Yes Univers (AMBIEN) 10 07-01 ity of mg tablet 00:00: [place] 00 [facility]nan [facility] zolpidem 2007-0 Yes Univers (AMBIEN) 10 07-01 ity of mg tablet 00:00: [place] 00 [facility] zolpidem 2007-0 Yes Univers (AMBIEN) 10 07-01 ity of mg tablet 00:00: [place] 00 [facility] zolpidem 2007-0 Yes Univers (AMBIEN) 10 07-01 ity of mg tablet 00:00: [place] 00 MD [facility] zolpidem 2007-0 Yes Univers (AMBIEN) 10 07-01 ity of mg tablet 00:00: [place] 00 [facility]nan [facility] zolpidem 2007-0 Yes Univers (AMBIEN) 10 07-01 ity of mg tablet 00:00: [place] 00 MD Gian [facility] zolpidem 2007-0 Yes Univers (AMBIEN) 10 07-01 ity of mg tablet 00:00: [place] 00 [facility]nan [facility] zolpidem 2007-0 Yes Univers (AMBIEN) 10 07-01 ity of mg tablet 00:00: [place] 00 MD [facility] zolpidem 2007-0 Yes Univers (AMBIEN) 10 07-01 ity of mg tablet 00:00: [place] 00 MD [facility] zolpidem 2007-0 Yes Univers (AMBIEN) 10 07-01 ity of mg tablet 00:00: [place] 00 Andbrennan n [facility] zolpidem 2007-0 Yes Univers (AMBIEN) 10 07-01 ity of mg tablet 00:00: [place] 00 MD [facility] zolpidem 2007-0 Yes Univers (AMBIEN) 10 07-01 ity of mg tablet 00:00: [place] 00 MD [facility] zolpidem Yes [facility] ([facility] 10 - ity of mg tablet 00:00: [place] 00 MD [facility] zolpidem Yes [facility] ([facility]) 10 07-01 ity of mg tablet 00:00: [place] 00 MD [facility] acetaminoph [...] Yes ywin 1 tablet Commo n [facility] Levothyroxi Levothyroxi Yes Kaywin 1 tablet Common ne Sodium ne Sodium [place] on an Sp karla empty - [facility] stomach in [facility] Estradiol Estradiol Yes y 1 patch to Common Aiden skin [facility] Promethazin Promethazin No 1{table Promethazi e HCl 25 mg e HCl 25 mg t_as_ne ne HCl 25 eded} mg Estradiol Estradiol No 1{patch Estradiol 0.1 MG/24HR 0.1 MG/24HR _to_ski 0.1 n} MG/24HR Celexa 40 Celexa 40 No 1{table QD Celexa 40 MG MG t} MG [place] No 1{table QID [place] 7.5-325 MG 7.5-325 MG t_as_ne 7.5-325 MG [...] Sodium 150 MCG 150 MCG 150 MCG [place] No 1{table QID [place] 7.5-325 MG 7.5-325 MG t_as_ne 7.5-325 MG eded} Promethazin Promethazin No 1{table Promethazi e HCl 25 mg e HCl 25 mg t_as_ne ne HCl 25 eded} mg Estradiol Estradiol No 1{patch Estradiol 0.1 MG/24HR 0.1 MG/24HR _to_ski 0.1 n} MG/24HR Premarin Premarin No 1{table QD Premarin 1.25 MG 1.25 MG t} 1.25 MG [place] No 1{table QID [place] 7.5-325 MG 7.5-325 MG t_as_ne 7.5-325 MG [...] 1.25 MG 1.25 MG t} 1.25 MG [place] No 1{table QID [place] 7.5-325 MG 7.5-325 MG t_as_ne 7.5-325 MG [...] Influenza, 2011-03-30 Completed University of Unspecified 00:00:00 [facility] [place] Tdap 2011-03-30 Completed University of 00:00:00 [facility] [place] Influenza, 2011-03-30 Completed University of Unspecified 00:00:00 [facility] Can r Center Tdap 2011-03-30 Completed University of 00:00:00 [facility] Influenza, 2011-03-30 Completed University of Unspecified 00:00:00 [facility] Can r Center Tdap 2011-03-30 Completed University of 00:00:00 [facility] Influenza, 2011-03-30 Completed University of Unspecified 00:00:00 [facility] [place] Tdap 2011-03-30 Completed University of 00:00:00 [facility] [place] Influenza, 2011-03-30 Completed University of Unspecified 00:00:00 [facility] [place] Tdap 2011-03-30 Completed University of 00:00:00 [facility] Influenza, 2011-03-30 Completed University of Unspecified 00:00:00 [facility] [place] Tdap 2011-03-30 Completed University of 00:00:00 [facility] [place] Influenza, 2011-03-30 Completed University of Unspecified 00:00:00 [facility] [place] Tdap 2011-03-30 Completed University of 00:00:00 [facility] [place] Influenza, 2011-03-30 Completed University of Unspecified 00:00:00 [facility] Can r Center Tdap 2011-03-30 Completed University of 00:00:00 [facility] [place] Influenza, 2011-03-30 Completed University of Unspecified 00:00:00 [facility] Can r Center Tdap 2011-03-30 Completed University of 00:00:00 [facility] [place] Influenza, 2011-03-30 Completed University of Unspecified 00:00:00 [facility] Cance r Center Tdap 2011-03-30 Completed University of 00:00:00 [facility] Can [facility] Center Influenza, 2011-03-30 Completed University of Unspecified 00:00:00 [facility] Can r Center Tdap 2011-03-30 Completed University of 00:00:00 [facility] Can [facility] Center Influenza, 2011-03-30 Completed University of Unspecified 00:00:00 [facility] Cance r Center Tdap 2011-03-30 Completed University of 00:00:00 [facility] C[facility] Center Influenza, 2011-03-30 Completed University of Unspecified 00:00:00 [facility] Cance [facility] Center Tdap 2011-03-30 Completed University of 00:00:00 [facility] Can [facility] Center Influenza, 2011-03-30 Completed University of Unspecified 00:00:00 [facility] Cance [facility] Center Tdap 2011-03-30 Completed University of 00:00:00 [facility] Can [facility] Center Influenza, 2011-03-30 Completed University of Unspecified 00:00:00 [facility] Cance [facility] Center Tdap 2011-03-30 Completed University of 00:00:00 [facility] Can r Center Influenza, 2011-03-30 Completed University of Unspecified 00:00:00 [facility] Can r Center Tdap 2011-03-30 Completed University of 00:00:00 [facility] Can r Center Influenza, 2011-03-30 Completed University of Unspecified 00:00:00 [facility] Cance r Center Tdap 2011-03-30 Completed University of 00:00:00 [facility] Can r Center Influenza, 2011-03-30 Completed University of Unspecified 00:00:00 [facility] Cance r Center Tdap 2011-03-30 Completed University of 00:00:00 [facility] Can r Center Influenza, 2011-03-30 Completed University of Unspecified 00:00:00 [facility] Cance [facility] Center Tdap 2011-03-30 Completed University of 00:00:00 [facility] Influenza, 2011-03-30 Completed University of Unspecified 00:00:00 [facility] Cance [facility] Center Tdap 2011-03-30 Completed University of 00:00:00 [facility] Influenza, 2011-03-30 Completed University of Unspecified 00:00:00 [facility] Cance [facility] Center Tdap 2011-03-30 Completed University of 00:00:00 [facility] Influenza, 2011-03-30 Completed University of Unspecified 00:00:00 [facility] Cance [facility] Center Tdap 2011-03-30 Completed University of 00:00:00 Jeffrey rodriguez [facility] Influenza (IM) 2009-04-05 Completed University of Preservative Free 00:00:00 [place] Zoltan Ayoub [facility] Influenza (IM) 2009-04-05 Completed University of Preservative Free 00:00:00 Jeffrey Ayoub [facility] Influenza (IM) 2009-04-05 Completed University of Preservative Free 00:00:00 [place] [facility] Influenza (IM) 2009-04-05 Completed University of Preservative Free 00:00:00 Jeffrey Ayoub [facility] Influenza (IM) 2009-04-05 Completed University of Preservative Free 00:00:00 [place] Zoltan Ayoub [facility] Influenza (IM) 2009-04-05 Completed University of Preservative Free 00:00:00 [place] [facility] Influenza (IM) 2009-04-05 Completed University of Preservative Free 00:00:00 [place] [facility] Influenza (IM) 2009-04-05 Completed University of Preservative Free 00:00:00 [place] [facility] Influenza (IM) 2009-04-05 Completed University of Preservative Free 00:00:00 [place] Zoltan Disla [facility] Influenza (IM) 2009-04-05 Completed University of Preservative Free 00:00:00 [place] Zoltan Ayoub [facility] Influenza (IM) 2009-04-05 Completed University of Preservative Free 00:00:00 [place] Zoltan Ayoub [facility] Influenza (IM) 2009-04-05 Completed University of Preservative Free 00:00:00 [place] [facility] Influenza (IM) 2009-04-05 Completed University of Preservative Free 00:00:00 [place] Zoltan Disla [facility] [place] Influenza (IM) 2009-04-05 Completed University of Preservative Free 00:00:00 [place] Zoltan Neely [facility] [place] Influenza (IM) 2009-04-05 Completed University of Preservative Free 00:00:00 [place] Zoltan Disla [facility] [place] Influenza (IM) 2009-04-05 Completed University of Preservative Free 00:00:00 [place] Zoltan Neely [facility] [place] Influenza (IM) 2009-04-05 Completed University of Preservative Free 00:00:00 [facility] Influenza (IM) 2009-04-05 Completed University of Preservative Free 00:00:00 [facility] Can r [place] Influenza (IM) 2009-04-05 Completed University of Preservative Free 00:00:00 [facility] Cance r [place] Influenza (IM) 2009-04-05 Completed University of Preservative Free 00:00:00 [facility] Can r [place] Influenza (IM) 2009-04-05 Completed University of Preservative Free 00:00:00 [facility] Influenza (IM) 2009-04-05 Completed University of Preservative Free 00:00:00 [facility] Influenza, Unknown Completed [facility] Influ[facility] (IM) Unknown Completed [place] of Preservative Free [facility] Tdap Unknown Completed [facility] Influenza, Unknown Completed [facility] Influenza (IM) Unknown Completed [place] of Preservative Free [facility] Tdap Unknown Completed [facility] Influenza, Unknown Completed [facility] Influenza (IM) Unknown Completed [facility] Preservative Free [facility] Tdap Unknown Completed [facility] Influenza, Unknown Completed [facility] Influenza (IM) Unknown Completed [facility] Preservative Free [facility] Tdap Unknown Completed [facility] Vital Signs Vital Name Observation Time Observation Value Comments Source Systolic blood 2023-03-19 04:50:00 149 mm[Hg] Univer sity of pressure [facility] Diastolic blood 2023-03-19 04:50:00 102 mm[Hg] Unive rsity of pressure [facility] Heart rate 2023-03-19 04:50:00 81 /min Universi ty of [facility] Respiratory rate 2023-03-19 04:50:00 15 /[facility] in 2023-03-19 04:50:00 96 /min [facility] Arterial blood by [facility] Pulse oximetry Branch Body temperature 2023-03-19 04:06:00 37.33 Ericka Univ [facility] [place] [facility] Body height 2023-03-19 04:06:00 162.6 cm [facility] [place] [facility] Body weight 2023-03-19 04:06:00 104.327 kg [facility] [place] [facility] BMI 2023-03-19 04:06:00 39.48 kg/m2 [facility] [place] [facility] Height 2023-03-02 23:36:00 162.56 CM Weight 2023-03-02 23:36:00 99.9 KG Systolic blood 2022-12-25 03:40:00 152 mm[Hg] Univer sity of pressure [facility] Diastolic blood 2022-12-25 03:40:00 97 mm[Hg] Unive rsity of pressure [facility] Heart rate 2022-12-25 03:40:00 95 /min [facility] [place] [facility] Body temperature 2022-12-25 03:40:00 37.28 Ericka [facility] [place] [facility] Respiratory rate 2022-12-25 03:40:00 18 /min Univ [facility] [place] [facility] Body height 2022-12-25 03:40:00 162.6 cm [facility] [place] [facility] Body weight 2022-12-25 03:40:00 108.863 kg [facility] [place] [facility] BMI 2022-12-25 03:40:00 41.20 kg/m2 [facility] [place] [facility] Oxygen saturation in 2022-12-25 03:40:00 95 /min University of Arterial blood by [place] [employer] [facility] Pulse oximetry Branch Systolic blood 2022-12-17 00:00:00 131 mm[Hg] Univer sity of pressure [facility] Diastolic blood 2022-12-17 00:00:00 88 mm[Hg] Unive rsity of pressure [place] [facility] Heart rate 2022-12-17 00:00:00 69 /min [facility] [place] [facility] Respiratory rate 2022-12-17 00:00:00 15 /min Univ [facility] [place] [facility] Oxygen saturation in 2022-12-17 00:00:00 100 /min University of Arterial blood by [place] [employer] Pulse oximetry Branch Body temperature 2022-12-16 22:02:00 37.28 Ericka [facility] [place] [facility] Systolic blood 2022-11-21 06:43:00 132 mm[Hg] Univer sity of pressure [place] [facility] Diastolic blood 2022-11-21 06:43:00 74 mm[Hg] Unive rsity of pressure [place] [facility] Heart rate 2022-11-21 06:43:00 76 /min [facility] [place] [facility] Body temperature 2022-11-21 06:43:00 36.22 Ericka [facility] [place] [facility] Oxygen saturation in 2022-11-21 06:43:00 99 /min University of Arterial blood by [place] [employer] [facility] Pulse oximetry Branch Respiratory rate 2022-11-21 05:12:00 21 /min Univ ersity [facility] [place] [facility] Body height 2022-11-21 02:40:00 162.6 cm [facility] [place] [facility] Body weight 2022-11-21 02:40:00 104.327 kg [facility] [place] [facility] BMI 2022-11-21 02:40:00 39.48 kg/m2 [facility] [place] [facility] Systolic blood 2022-10-26 05:15:00 119 mm[Hg] Univer sity of pressure [place] [facility] Diastolic blood 2022-10-26 05:15:00 52 mm[Hg] Unive rsity of pressure [place] [facility] Heart rate 2022-10-26 05:15:00 84 /min [facility] [place] [facility] Respiratory rate 2022-10-26 05:15:00 22 /min Univ [facility] [place] [facility] Oxygen saturation in 2022-10-26 05:15:00 98 /min University of Arterial blood by [place] [employer] [facility] Pulse oximetry Branch Body temperature 2022-10-26 03:39:00 37.22 Ericka [facility] [place] [facility] Body height 2022-10-26 03:39:00 162.6 cm [facility] [place] [facility] Body weight 2022-10-26 03:39:00 113.399 kg [facility] [place] [facility] BMI 2022-10-26 03:39:00 42.91 kg/m2 [facility] [place] [facility] Systolic blood 2022-10-03 07:08:00 146 mm[Hg] Univer sity of pressure [place] [facility] Diastolic blood 2022-10-03 07:08:00 91 mm[Hg] Unive rsity of pressure [place] [facility] Heart rate 2022-10-03 07:08:00 81 /min [facility] [place] [facility] Respiratory rate 2022-10-03 07:08:00 16 /min Univ ersity [facility] [place] [facility] Oxygen saturation in 2022-10-03 07:08:00 98 /min University of Arterial blood by [place] [facility] Pulse oximetry Branch Body temperature 2022-10-03 03:31:00 37.22 Ericka [facility] [place] [facility] Body height 2022-10-03 03:31:00 162.6 cm [facility] Body weight 2022-10-03 03:31:00 108.863 kg [facility] BMI 2022-10-03 03:31:00 41.20 kg/m2 [facility] Systolic blood 2022-06-13 23:28:00 132 mm[Hg] [facility] Diastolic blood 2022-06-13 23:28:00 83 mm[Hg] [facility] Heart rate 2022-06-13 23:28:00 107 /min [facility] Body temperature 2022-06-13 23:28:00 37.17 Ericka [facility] Respiratory rate 2022-06-13 23:28:00 16 /min [facility] Body height 2022-06-13 23:28:00 162.6 cm [facility] Body weight 2022-06-13 23:28:00 102.15 kg [facility] BMI 2022-06-13 23:28:00 38.66 kg/m2 [facility] Oxygen saturation in 2022-06-13 23:28:00 96 /min [facility] Arterial blood by [facility] felipa Pulse oximetry Branch Systolic blood 2022-05-07 [...] 98 /min [facility] Arterial blood by [facility] Pulse oximetry Branch Body temperature 2022-05-07 14:07:33 37 Ericka [facility] Body height 2022-05-07 13:56:00 162.6 cm [facility] Body weight 2022-05-07 13:56:00 108.863 kg [facility] BMI 2022-05-07 13:56:00 41.20 kg/m2 [facility] Systolic blood 2022-02-19 14:13:00 156 mm[Hg] [facility] Diastolic blood 2022-02-19 14:13:00 94 mm[Hg] [facility] Heart rate 2022-02-19 14:13:00 111 /min [facility] Body temperature 2022-02-19 14:13:00 37.11 Reicka [facility] Respiratory rate 2022-02-19 14:13:00 22 /min [facility] Body height 2022-02-19 14:13:00 162.6 cm [facility] Body weight 2022-02-19 14:13:00 104.327 kg [facility] BMI 2022-02-19 14:13:00 39.48 kg/m2 [facility] Oxygen saturation in 2022-02-19 14:13:00 99 /min [facility] Arterial blood by [facility] Pulse oximetry Branch Systolic blood 2021-11-29 22:40:00 116 mm[Hg] [facility] Diastolic blood 2021-11-29 22:40:00 85 mm[Hg] [facility] Heart rate 2021-11-29 22:40:00 87 /min [facility] Body temperature 2021-11-29 22:40:00 37.28 Ericka [facility] Respiratory rate 2021-11-29 22:40:00 16 /min [facility] Body height 2021-11-29 22:40:00 162.6 cm [facility] Body weight 2021-11-29 22:40:00 103.874 kg [facility] BMI 2021-11-29 22:40:00 39.31 kg/m2 [facility] Oxygen saturation in 2021-11-29 22:40:00 98 /min [facility] blood by [facility] Pulse oximetry Branch Height 2021-04-23 00:58:00 162.56 [...] KG Pulse Rate 2023-03-03 03:33:00 87 /min [facility] (LUF/DAVID/SA) O2% BldC Oximetry 2023-03-03 03:33:00 98 % [facility] (LUF/DAVID/SA) BP Systolic 2023-03-03 03:16:00 154 mm[Hg] [facility] (LUF/DAVID/SA) BP Diastolic 2023-03-03 03:16:00 89 mm[Hg] [facility] (LUF/DAVID/SA) Body Temperature 2023-03-02 23:36:00 98.7 [degF] [facility] (LUF/DAVID/SA) Respiratory Rate 2023-03-02 23:36:00 16 /min [facility] (LUF/DAVID/SA) Height 2023-03-02 23:36:00 64 [in_i] [facility] (F/DAVID/SA) Weight 2023-03-02 23:36:00 99.9 kg [facility] (LUF/DAVID/SA) BMI (Body Mass 2023-03-02 23:36:00 38 kg/m2 [facility] (LUF/DAVID/SA) Systolic blood 2021-10-26 15:16:33 119 mm[Hg] [facility] Diastolic blood 2021-10-26 15:16:33 87 mm[Hg] [facility] Heart rate 2021-10-26 15:16:33 92 /min [facility] Respiratory rate 2021-10-26 15:16:33 16 /min [facility] Oxygen saturation in 2021-10-26 15:16:33 98 /min [facility] Arterial blood by Jeffrey muñoz Pulse oximetry [facility] Body Temperature 2021-04-23 00:58:00 97.8 [degF] [facility] (LUF/DAVID/SA) Pulse Rate 2021-04-23 00:58:00 116 /min [facility] (LUF/DAVID/SA) Respiratory Rate 2021-04-23 00:58:00 18 /min [facility] (LUF/DAVID/SA) O2% BldC Oximetry 2021-04-23 00:58:00 99 % [facility] (LUF/DAVID/SA) BP Systolic 2021-04-23 00:58:00 111 mm[Hg] [facility] (LUF/DAVID/SA) BP Diastolic 2021-04-23 00:58:00 77 mm[Hg] [facility] (LUF/DAVID/SA) Height 2021-04-23 00:58:00 64 [in_i] [facility] (LUF/DAVID/SA) Weight 2021-04-23 00:58:00 105.1 kg [facility] (LUF/DAVID/SA) BMI (Body Mass 2021-04-23 00:58:00 40 kg/m2 [facility]) [facility] (LUF/DAVID/SA) Body Temperature 2021-03-24 10:53:00 98.6 [degF] [facility] (LUF/DAVID/SA) Pulse Rate 2021-03-24 10:53:00 87 /min [facility] (LUF/DAVID/SA) Respiratory Rate 2021-03-24 10:53:00 18 /min [facility] (F/DAVID/SA) O2% BldC Oximetry 2021-03-24 10:53:00 97 % [facility] (LUF/DAVID/SA) BP Systolic 2021-03-24 10:53:00 120 mm[Hg] [facility] (LUF/DAVID/SA) BP Diastolic 2021-03-24 10:53:00 86 mm[Hg] [facility] (LUF/DAVID/SA) Height 2021-03-24 10:53:00 64 [in_i] [facility] (LUF/DAVID/SA) Weight 2021-03-24 10:53:00 105 kg [facility] (LUF/DAVID/SA) BMI (Body Mass 2021-03-24 10:53:00 40 kg/m2 [facility]) [facility] (LUF/DAVID/SA) Body Temperature 2021-03-10 10:55:00 98.4 [degF] [facility] (LUF/DAVID/SA) Pulse Rate 2021-03-10 10:55:00 85 /min [facility] (LUF/DAVID/SA) Respiratory Rate 2021-03-10 10:55:00 20 /min [facility] (LUF/DAVID/SA) O2% BldC Oximetry 2021-03-10 10:55:00 100 % [facility] (LUF/DAVID/SA) BP Systolic 2021-03-10 10:55:00 140 mm[Hg] [facility] (LUF/DAVID/SA) BP Diastolic 2021-03-10 10:55:00 98 mm[Hg] [facility] (LUF/DAVID/SA) Height 2021-03-10 10:55:00 64 [in_i] [facility] (F/DAVID/SA) Weight 2021-03-10 10:55:00 105.2 kg [facility] (LUF/DAVID/SA) BMI (Body Mass 2021-03-10 10:55:00 40 kg/m2 [facility] (LUF/DAVID/SA) Pulse Rate 2021-02-23 12:32:00 67 /min [facility] (LUF/DAVID/SA) O2% BldC Oximetry 2021-02-23 12:32:00 98 % [facility] (LUF/DAVID/SA) BP Systolic 2021-02-23 12:32:00 112 mm[Hg] [facility] (LUF/DAVID/SA) BP Diastolic 2021-02-23 12:32:00 70 mm[Hg] [facility] (LUF/DAVID/SA) Heart Rate 2021-02-23 11:16:00 64 /min [facility] (LUF/DAVID/SA) Respiratory Rate 2021-02-23 11:16:00 14 /min [facility] (F/DAVID/SA) Body Temperature 2021-02-23 08:24:00 98.1 [degF] [facility] (LUF/DAVID/SA) Height 2021-02-23 08:24:00 64 [in_i] [facility] (LUF/DAVID/SA) Weight 2021-02-23 08:24:00 110 kg [facility] (LUF/DAVID/SA) BMI (Body Mass 2021-02-23 08:24:00 41.9 kg/m2 [facility] (LUF/DAVID/SA) Heart Rate 2021-01-10 01:46:00 93 /min [facility] (LUF/DAVID/SA) Pulse Rate 2021-01-10 01:46:00 95 /min [facility] (LUF/DAVID/SA) Respiratory Rate 2021-01-10 01:46:00 16 /min [facility] (LUF/DAVID/SA) O2% BldC Oximetry 2021-01-10 01:46:00 97 % [facility] (LUF/DAVID/SA) BP Systolic 2021-01-10 01:46:00 103 mm[Hg] [facility] (LUF/DAVID/SA) BP Diastolic 2021-01-10 01:46:00 71 mm[Hg] [facility] (F/DAVID/SA) Weight 2021-01-10 00:53:00 102 kg [facility] (LUF/DAVID/SA) Body Temperature 2021-01-10 00:47:00 98.6 [degF] [facility] (F/DAVID/SA) Pulse Rate 2020-12-12 14:20:00 87 /min [facility] (LUF/DAVID/SA) O2% BldC Oximetry 2020-12-12 14:20:00 98 % [facility] (LUF/DAVID/SA) BP Systolic 2020-12-12 14:20:00 128 mm[Hg] [facility] (LUF/DAVID/SA) BP Diastolic 2020-12-12 14:20:00 86 mm[Hg] [facility] (F/DAVID/SA) Body Temperature 2020-12-12 12:39:00 98.9 [degF] [facility] (F/DAVID/SA) Respiratory Rate 2020-12-12 12:39:00 20 /min [facility] (F/DAVID/SA) Weight 2020-12-12 12:39:00 102 kg [facility] (LUF/DAVID/SA) Body Temperature 2020-12-08 10:27:00 98.6 [degF] [facility] (LUF/DAVID/SA) Pulse Rate 2020-12-08 10:27:00 79 /min [facility] (LUF/DAVID/SA) Respiratory Rate 2020-12-08 10:27:00 16 /min [facility] (LUF/DAVID/SA) O2% BldC Oximetry 2020-12-08 10:27:00 99 % [facility] (LUF/DAVID/SA) BP Systolic 2020-12-08 10:27:00 111 mm[Hg] [facility] (LUF/DAVID/SA) BP Diastolic 2020-12-08 10:27:00 57 mm[Hg] [facility] (LUF/DAVID/SA) Weight 2020-12-08 10:27:00 103 kg [facility] (LUF/DAVID/SA) Body Temperature 2020-11-25 00:27:00 97.9 [degF] [facility] (LUF/DAVID/SA) Pulse Rate 2020-11-25 00:27:00 82 /min [facility] (LUF/DAVID/SA) Respiratory Rate 2020-11-25 00:27:00 17 /min [facility] (LUF/DAVID/SA) O2% BldC Oximetry 2020-11-25 00:27:00 98 % [facility] (LUF/DAVID/SA) BP Systolic 2020-11-25 00:27:00 109 mm[Hg] [facility] (LUF/DAVID/SA) BP Diastolic 2020-11-25 00:27:00 62 mm[Hg] [facility] (LUF/DAVID/SA) Heart Rate 2020-11-21 09:30:00 75 /min [facility] (LUF/DAVID/SA) Respiratory Rate 2020-11-21 09:30:00 14 /min [facility] (LUF/DAVID/SA) BP Systolic 2020-11-21 09:30:00 120 mm[Hg] [facility] (LUF/DAVID/SA) BP Diastolic 2020-11-21 09:30:00 76 mm[Hg] [facility] (LUF/DAVID/SA) Body Temperature 2020-11-21 07:15:00 98.1 [degF] [facility] (LUF/DAVID/SA) Pulse Rate 2020-11-21 07:15:00 103 /min [facility] (LUF/DAVID/SA) O2% BldC Oximetry 2020-11-21 07:15:00 100 % [facility] (LUF/DAVID/SA) Height 2020-11-21 07:15:00 64 [in_i] [facility] (LUF/DAVID/SA) Weight 2020-11-21 07:15:00 103.1 kg [facility] (LUF/DAVID/SA) BMI (Body Mass 2020-11-21 07:15:00 39.2 kg/m2 [facility] (LUF/DAVID/SA) Heart Rate 2020-11-14 13:30:00 69 /min [facility] (LUF/DAVID/SA) Pulse Rate 2020-11-14 13:30:00 70 /min [facility] (LUF/DAVID/SA) Respiratory Rate 2020-11-14 13:30:00 10 /min [facility] (LUF/DAVID/SA) O2% BldC Oximetry 2020-11-14 13:30:00 96 % [facility] (LUF/DAVID/SA) BP Systolic 2020-11-14 13:30:00 103 mm[Hg] [facility] (LUF/DAVID/SA) BP Diastolic 2020-11-14 13:30:00 77 mm[Hg] [facility] (LUF/DAVID/SA) Body Temperature 2020-11-14 09:47:00 97.4 [degF] [facility] (LUF/DAVID/SA) Weight 2020-11-14 09:47:00 103 kg [facility] (LUF/DAVID/SA) Body Temperature 2020-11-08 08:32:00 98.1 [degF] [facility] (LUF/DAVID/SA) Pulse Rate 2020-11-08 08:32:00 82 /min [facility] (LUF/DAVID/SA) Respiratory Rate 2020-11-08 08:32:00 20 /min [facility] (LUF/DAVID/SA) O2% BldC Oximetry 2020-11-08 08:32:00 100 % [facility] (LUF/DAVID/SA) BP Systolic 2020-11-08 08:32:00 129 mm[Hg] [facility] (LUF/DAVID/SA) BP Diastolic 2020-11-08 08:32:00 72 mm[Hg] [facility] (LUF/DA[facility]ID/SA) Height 2020-11-08 08:32:00 64 [in_i] [facility] (F/DAVID/SA) Weight 2020-11-08 08:32:00 103.1 kg [facility] (LUF/DAVID/SA) BMI (Body Mass 2020-11-08 08:32:00 39.2 kg/m2 [facility] (LUF/DAVID/SA) Body Temperature 2020-11-01 00:58:00 98.7 [degF] [facility] (F/DAVID/SA) Pulse Rate 2020-11-01 00:58:00 104 /min [facility] (LUF/DAVID/SA) Respiratory Rate 2020-11-01 00:58:00 20 /min [facility] (LUF/DAVID/SA) O2% BldC Oximetry 2020-11-01 00:58:00 99 % [facility] (LUF/DAVID/SA) BP Systolic 2020-11-01 00:58:00 133 mm[Hg] [facility] (LUF/DAVID/SA) BP Diastolic 2020-11-01 00:58:00 101 mm[Hg] [facility] (LUF/[facility]ID/SA) Height 2020-11-01 00:53:00 65 [in_i] [facility] (LUF/[facility]ID/SA) Weight 2020-11-01 00:53:00 103 kg [facility] (LUF/DAVID/SA) BMI (Body Mass 2020-11-01 00:53:00 37.8 kg/m2 [facility] Index) [facility] (LUF/DAVID/SA) Body Temperature 2020-10-04 23:51:00 98 [degF] [facility] (LUF/DAVID/SA) Pulse Rate 2020-10-04 23:51:00 96 /min [facility] (LUF/DAVID/SA) Respiratory Rate 2020-10-04 23:51:00 20 /min [facility] (LUF/DAVID/SA) O2% BldC Oximetry 2020-10-04 23:51:00 98 % [facility] (LUF/DAVID/SA) BP Systolic 2020-10-04 23:51:00 125 mm[Hg] [facility] (LUF/DAVID/SA) BP Diastolic 2020-10-04 23:51:00 73 mm[Hg] [facility] (F/DAVID/SA) Height 2020-10-04 23:47:00 65 [in_i] [facility] (LUF/DAVID/SA) Weight 2020-10-04 23:47:00 102.6 kg [facility] (F/DAVID/SA) BMI (Body Mass 2020-10-04 23:47:00 37.6 kg/m2 [facility]) [facility] (LUF/DAVID/SA) Body Temperature 2020-09-18 01:44:00 98.3 [degF] [facility] (LUF/DAVID/SA) Pulse Rate 2020-09-18 01:44:00 116 /min [facility] (F/DAVID/SA) Respiratory Rate 2020-09-18 01:44:00 20 /min [facility] (F/DAVID/SA) O2% BldC Oximetry 2020-09-18 01:44:00 99 % [facility] (LUF/DAVID/SA) BP Systolic 2020-09-18 01:44:00 127 mm[Hg] [facility] (LUF/[facility]/SA) BP Diastolic 2020-09-18 01:44:00 83 mm[Hg] [facility] (LUF/[facility]/SA) Height 2020-09-18 01:40:00 64 [in_i] [facility] (LUF/[facility]/SA) Weight 2020-09-18 01:40:00 102.8 kg [facility] (LUF/DAVID/SA) BMI (Body Mass 2020-09-18 01:40:00 39.1 kg/m2 [facility] (LUF/DAVID/SA) Pulse Rate 2020-09-12 02:16:00 88 /min [facility] (LUF/[facility]/SA) O2% BldC Oximetry 2020-09-12 02:16:00 98 % [facility] (LUF/[facility]/SA) BP Systolic 2020-09-12 02:16:00 113 mm[Hg] [facility] (LUF/[facility]/SA) BP Diastolic 2020-09-12 02:16:00 64 mm[Hg] [facility] (LUF/[facility]/SA) Body Temperature 2020-09-12 00:56:00 97.9 [degF] [facility] (LUF/[facility]) Respiratory Rate 2020-09-12 00:56:00 18 /min [facility] (LUF/[facility]/SA) Height 2020-09-12 00:50:00 65 [in_i] [facility] (LUF/[facility]/SA) Weight 2020-09-12 00:50:00 104.5 kg [facility] (LUF/[facility]/SA) BMI (Body Mass 2020-09-12 00:50:00 38.3 kg/m2 [facility] (LUF/[facility]/SA) Pulse Rate 2020-08-22 03:16:00 100 /min [facility] (LUF/[facility]/SA) O2% BldC Oximetry 2020-08-22 03:16:00 95 % [facility] (LUF/[facility]/SA) BP Systolic 2020-08-22 03:16:00 129 mm[Hg] [facility] (LUF/[facility]/SA) BP Diastolic 2020-08-22 03:16:00 88 mm[Hg] [facility] (LUF/[facility]) Body Temperature 2020-08-22 01:35:00 98.4 [degF] [facility] (LUF/[facility]/SA) Respiratory Rate 2020-08-22 01:35:00 20 /min [facility] (LUF/[facility]/SA) Height 2020-08-22 01:35:00 64 [in_i] [facility] (LUF/[facility]/SA) Weight 2020-08-22 01:35:00 102 kg [facility] (LUF/[facility]/SA) BMI (Body Mass 2020-08-22 01:35:00 38.8 kg/m2 [facility] (LUF/DAV[facility]/SA) Pulse Rate 2020-08-06 03:31:00 83 /min [facility] (LUF/[facility]/SA) O2% BldC Oximetry 2020-08-06 03:31:00 96 % [facility] (LUF/[facility]/SA) BP Systolic 2020-08-06 03:31:00 127 mm[Hg] [facility] (LUF/[facility]ID/SA) BP Diastolic 2020-08-06 03:31:00 82 mm[Hg] [facility] (LUF/[facility]/SA) Body Temperature 2020-08-06 01:45:00 98 [degF] [facility] (LUF/[facility]/SA) Respiratory Rate 2020-08-06 01:45:00 20 /min [facility] (LUF/[facility]ID/SA) Height 2020-08-06 01:39:00 66 [in_i] [facility] (LUF/[facility]/SA) Weight 2020-08-06 01:39:00 104.2 kg [facility] (LUF/[facility]/SA) BMI (Body Mass 2020-08-06 01:39:00 37.3 kg/m2 [facility] Index) [facility] (LUF/DAVID/SA) Pulse Rate 2020-07-19 11:16:00 67 /min [facility] (LUF/[facility]/SA) O2% BldC Oximetry 2020-07-19 11:16:00 94 % [facility] (LUF/DA[facility]ID/SA) BP Systolic 2020-07-19 11:16:00 101 mm[Hg] [facility] (LUF/DA[facility]ID/SA) BP Diastolic 2020-07-19 11:16:00 63 mm[Hg] [facility] (F/DAVID/SA) Body Temperature 2020-07-19 07:50:00 98 [degF] [facility] (F/DAVID/SA) Respiratory Rate 2020-07-19 07:50:00 18 /min [facility] (F/DAVID/SA) Weight 2020-07-19 07:50:00 100 kg [facility] ([facility]/DAVID/SA) Heart Rate 2020-07-05 04:46:00 80 /min [facility] (F/DAVID/SA) Respiratory Rate 2020-07-05 04:46:00 15 /min [facility] (F/DAVID/SA) BP Systolic 2020-07-05 04:46:00 134 mm[Hg] [facility] (F/DAVID/SA) BP Diastolic 2020-07-05 04:46:00 60 mm[Hg] [facility] ([facility]/DAVID/SA) Body Temperature 2020-07-05 02:57:00 98 [degF] [facility] ([facility]/DAVID/SA) Pulse Rate 2020-07-05 02:57:00 82 /min [facility] ([facility]/SA) O2% BldC Oximetry 2020-07-05 02:57:00 99 % [facility] (F/DAVID/SA) Height 2020-07-05 02:50:00 65 [in_i] [facility] ([facility]/DAVID/SA) Weight 2020-07-05 02:50:00 102.1 kg [facility] ([facility]/DAVID/SA) BMI (Body Mass 2020-07-05 02:50:00 37.5 kg/m2 [facility] (F/DAVID/SA) Body Temperature 2020-06-07 13:38:00 98.5 [degF] [facility] (LUF/DAVID/SA) Pulse Rate 2020-06-07 13:38:00 95 /min [facility] Stefanie [facility] (LUF/DAVID/SA) Respiratory Rate 2020-06-07 13:38:00 20 /min [facility] (LUF/DAVID/SA) O2% BldC Oximetry 2020-06-07 13:38:00 97 % [facility] (LUF/DAVID/SA) BP Systolic 2020-06-07 13:38:00 129 mm[Hg] [facility] (LUF/DAVID/SA) BP Diastolic 2020-06-07 13:38:00 73 mm[Hg] [facility] (LUF/[facility]ID/SA) Height 2020-06-07 13:38:00 64 [in_i] [facility] (LUF/DAVID/SA) Weight 2020-06-07 13:38:00 99.79 kg [facility] (LUF/DAVID/SA) BMI (Body Mass 2020-06-07 13:38:00 38 kg/m2 [facility] (LUF/DAVID/SA) Body Temperature 2020-05-31 09:45:00 99.6 [degF] [facility] (LUF/DAVID/SA) Pulse Rate 2020-05-31 09:45:00 86 /min [facility] (LUF/DAVID/SA) Respiratory Rate 2020-05-31 09:45:00 18 /min [facility] (LUF/DAVID/SA) O2% BldC Oximetry 2020-05-31 09:45:00 98 % [facility] (LUF/DAVID/SA) BP Systolic 2020-05-31 09:45:00 118 mm[Hg] [facility] (LUF/DAVID/SA) BP Diastolic 2020-05-31 09:45:00 78 mm[Hg] [facility] (LUF/DAVID/SA) Height 2020-05-31 09:45:00 64 [in_i] [facility] (LUF/DAVID/SA) Weight 2020-05-31 09:45:00 99.79 kg [facility] (LUF/DAVID/SA) BMI (Body Mass 2020-05-31 09:45:00 38 kg/m2 [facility] Index) [facility] (LUF/DAVID/SA) Heart Rate 2020-04-25 20:01:00 69 /min [facility] (LUF/DAVID/SA) Pulse Rate 2020-04-25 20:01:00 71 /min [facility] (LUF/DAVID/SA) Respiratory Rate 2020-04-25 20:01:00 18 /min [facility] (F/DAVID/SA) O2% BldC Oximetry 2020-04-25 20:01:00 100 % [facility] (F/DAVID/SA) BP Systolic 2020-04-25 20:01:00 126 mm[Hg] [facility] (LUF/DAVID/SA) BP Diastolic 2020-04-25 20:01:00 86 mm[Hg] [facility] (F/DAVID/SA) Body Temperature 2020-04-25 16:50:00 98.4 [degF] [facility] (F/DAVID/SA) Height 2020-04-25 16:50:00 64 [in_i] [facility] (F/DAVID/SA) Weight 2020-04-25 16:50:00 220 [lb_av] [facility] (F/DAVID/SA) BMI (Body Mass 2020-04-25 16:50:00 38 kg/m2 [facility]) [facility] (LUF/DAVID/SA) Heart Rate 2020-03-20 18:18:00 112 /min [facility] (LUF/DAVID/SA) Pulse Rate 2020-03-20 18:16:00 93 /min [facility] (F/DAVID/SA) O2% BldC Oximetry 2020-03-20 18:16:00 92 % [facility] (F/DAVID/SA) BP Systolic 2020-03-20 18:16:00 127 mm[Hg] [facility] (F/DAVID/SA) BP Diastolic 2020-03-20 18:16:00 85 mm[Hg] [facility] (F/DAVID/SA) Body Temperature 2020-03-20 17:17:00 99.2 [degF] [facility] (LUF/DAVID/SA) Respiratory Rate 2020-03-20 17:17:00 19 /min [facility] (LUF/DAVID/SA) Height 2020-03-20 17:17:00 64 [in_i] [facility] (LUF/DAVID/SA) Weight 2020-03-20 17:17:00 106.9 kg [facility] (LUF/DAVID/SA) BMI (Body Mass 2020-03-20 17:17:00 40.7 kg/m2 [facility] (LUF/DAVID/SA) Respiratory Rate 2020-03-17 10:33:00 16 /min [facility] ([facility]) Body Temperature 2020-03-17 07:54:00 97.9 [degF] [facility] ([facility]) Pulse Rate 2020-03-17 07:54:00 83 /min [facility] ([facility]) O2% BldC Oximetry 2020-03-17 07:54:00 96 % [facility] ([facility]) BP Systolic 2020-03-17 07:54:00 107 mm[Hg] [facility] ([facility]) BP Diastolic 2020-03-17 07:54:00 75 mm[Hg] [facility] ([facility]) Weight 2020-03-17 00:09:00 105.6 kg [facility] ([facility]) Heart Rate 2020-03-13 15:46:00 81 /min [facility] ([facility]) Height 2020-03-13 15:31:00 64 [in_i] [facility] ([facility]) Body Temperature 2020-03-02 15:20:00 98.6 [degF] [facility] ([facility]) Pulse Rate 2020-03-02 15:20:00 86 /min [facility] ([facility]) Respiratory Rate 2020-03-02 15:20:00 18 /min [facility] ([facility]) O2% BldC Oximetry 2020-03-02 15:20:00 99 % [facility] ([facility]) BP Systolic 2020-03-02 15:20:00 131 mm[Hg] [facility] ([facility]) BP Diastolic 2020-03-02 15:20:00 85 mm[Hg] [facility] ([facility]) Height 2020-03-01 10:54:00 64 [in_i] [facility] ([facility]) Weight 2020-03-01 10:54:00 102 kg [facility] ([facility]) BMI (Body Mass 2020-03-01 10:54:00 38.8 kg/m2 [facility] ([facility]) Respiratory Rate 2020-02-27 07:47:00 16 /min [facility] ([facility]) Body Temperature 2020-02-27 07:32:00 98.2 [degF] [facility] ([facility]) Pulse Rate 2020-02-27 07:32:00 94 /min [facility] ([facility]) O2% BldC Oximetry 2020-02-27 07:32:00 95 % [facility] ([facility]) BP Systolic 2020-02-27 07:32:00 111 mm[Hg] [facility] ([facility]) BP Diastolic 2020-02-27 07:32:00 56 mm[Hg] [facility] ([facility]) Weight 2020-02-26 02:09:00 99.6 kg [facility] ([facility]) Height 2020-02-25 10:03:00 64 [in_i] [facility] ([facility]) Body Temperature 2020-02-25 00:52:00 97.9 [degF] [facility] ([facility]) Pulse Rate 2020-02-25 00:52:00 118 /min [facility] ([facility]) Respiratory Rate 2020-02-25 00:52:00 18 /min [facility] ([facility]) O2% BldC Oximetry 2020-02-25 00:52:00 97 % [facility] ([facility]) BP Systolic 2020-02-25 00:52:00 133 mm[Hg] [facility] ([facility]) BP Diastolic 2020-02-25 00:52:00 67 mm[Hg] [facility] ([facility]) Height 2020-02-25 00:47:00 64 [in_i] [facility] ([facility]) Weight 2020-02-25 00:47:00 103.4 kg [facility] ([facility]) BMI (Body Mass 2020-02-25 00:47:00 39.3 kg/m2 [facility] [facility] (LUF/DAVID/SA) Body Temperature 2020-01-25 11:32:00 98.4 [degF] [facility] (LUF/DAVID/SA) Pulse Rate 2020-01-25 11:32:00 81 /min [facility] (LUF/DAVID/SA) Respiratory Rate 2020-01-25 11:32:00 14 /min [facility] (LUF/DAVID/SA) O2% BldC Oximetry 2020-01-25 11:32:00 98 % [facility] (LUF/DAVID/SA) BP Systolic 2020-01-25 11:32:00 139 mm[Hg] [facility] (LUF/ADVID/SA) BP Diastolic 2020-01-25 11:32:00 89 mm[Hg] [facility] (LUF/DAVID/SA) Height 2020-01-25 11:32:00 64 [in_i] [facility] (LUF/DAVID/SA) Weight 2020-01-25 11:32:00 100.5 kg [facility] (LUF/DAVID/SA) BMI (Body Mass 2020-01-25 11:32:00 38.2 kg/m2 [facility] Index) [facility] (LUF/DAVID/SA) Heart Rate 2019-11-24 04:16:00 84 /min [facility] (LUF/DAVID/SA) Pulse Rate 2019-11-24 04:16:00 90 /min [facility] (LUF/DAVID/SA) Respiratory Rate 2019-11-24 04:16:00 26 /min [facility] (LUF/DAVID/SA) O2% BldC Oximetry 2019-11-24 04:16:00 98 % [facility] (LUF/DAVID/SA) BP Systolic 2019-11-24 04:16:00 106 mm[Hg] [facility] (LUF/DAVID/SA) BP Diastolic 2019-11-24 04:16:00 69 mm[Hg] [facility] (LUF/DAVID/SA) Body Temperature 2019-11-24 00:54:00 98.4 [degF] [facility] (LUF/DAVID/SA) Height 2019-11-24 00:49:00 65 [in_i] [facility] (LUF/DAVID/SA) Weight 2019-11-24 00:49:00 103 kg [facility] (LUF/DAVID/SA) BMI (Body Mass 2019-11-24 00:49:00 37.8 kg/m2 [facility] (LUF/DAVID/SA) Heart Rate 2019-10-07 22:54:00 83 /min [facility] (LUF/DAVID/SA) Respiratory Rate 2019-10-07 22:54:00 14 /min [facility] (LUF/DAVID/SA) Pulse Rate 2019-10-07 22:31:00 89 /min [facility] (LUF/DAVID/SA) O2% BldC Oximetry 2019-10-07 22:31:00 97 % [facility] (LUF/DAVID/SA) BP Systolic 2019-10-07 21:16:00 127 mm[Hg] [facility] (LUF/DAVID/SA) BP Diastolic 2019-10-07 21:16:00 85 mm[Hg] [facility] (LUF/DAVID/SA) Height 2019-10-07 20:41:00 64 [in_i] [facility] (LUF/DAVID/SA) Weight 2019-10-07 20:41:00 100.2 kg [facility] (LUF/DAVID/SA) BMI (Body Mass 2019-10-07 20:41:00 38.1 kg/m2 [facility]) [facility] (LUF/DAVID/SA) Pulse Rate 2019-09-20 04:16:00 96 /min [facility] (LUF/DAVID/SA) Respiratory Rate 2019-09-20 04:16:00 9 /min [facility] (LUF/DAVID/SA) O2% BldC Oximetry 2019-09-20 04:16:00 96 % [facility] (LUF/DAVID/SA) BP Systolic 2019-09-20 04:16:00 97 mm[Hg] [facility] (LUF/DAVID/SA) BP Diastolic 2019-09-20 04:16:00 76 mm[Hg] [facility] (LUF/DAVID/SA) Body Temperature 2019-09-20 00:44:00 98 [degF] [facility] (LUF/DAVID/SA) Height 2019-09-20 00:39:00 65 [in_i] [facility] (LUF/DAVID/SA) Weight 2019-09-20 00:39:00 101.9 kg [facility] (LUF/DAIVD/SA) BMI (Body Mass 2019-09-20 00:39:00 37.4 kg/m2 [facility]) [facility] (LUF/DAVID/SA) Pulse Rate 2019-08-17 04:31:00 81 /min [facility] (LUF/DAVID/SA) Respiratory Rate 2019-08-17 04:31:00 13 /min [facility] (LUF/DAVID/SA) O2% BldC Oximetry 2019-08-17 04:31:00 97 % [facility] (LUF/DAVID/SA) BP Systolic 2019-08-17 04:31:00 136 mm[Hg] [facility] (LUF/DAVID/SA) BP Diastolic 2019-08-17 04:31:00 75 mm[Hg] [facility] (LUF/DAVID/SA) Body Temperature 2019-08-17 02:23:00 97.6 [degF] [facility] (LUF/DAVID/SA) Height 2019-08-17 02:19:00 64 [in_i] [facility] (LUF/DAVID/SA) Weight 2019-08-17 02:19:00 100.6 kg [facility] (LUF/DAVID/SA) BMI (Body Mass 2019-08-17 02:19:00 38.3 kg/m2 [facility] (LUF/DAVID/SA) Pulse Rate 2018-12-07 02:33:00 79 /min [facility] (LUF/DAVID/SA) Respiratory Rate 2018-12-07 02:33:00 15 /min [facility] (LUF/DAVID/SA) O2% BldC Oximetry 2018-12-07 02:33:00 96 % [facility] (LUF/DAVID/SA) BP Systolic 2018-12-07 02:33:00 120 mm[Hg] [facility] (LUF/DAVID/SA) BP Diastolic 2018-12-07 02:33:00 76 mm[Hg] [facility] (LUF/DAVID/SA) Body Temperature 2018-12-07 01:10:00 98.2 F [facility] (LUF/DAVID/SA) Height 2018-12-07 01:10:00 64 in [facility] (LUF/DAVID/SA) Weight Measured 2018-12-07 01:10:00 218.25 lbs [facility] (LUF/DAVID/SA) BMI (Body Mass 2018-12-07 01:10:00 37.7 kg/m2 [facility] Index) [facility] (LUF/DAVID/SA) Pulse Rate 2018-09-30 19:40:00 70 /min [facility] (LUF/DAVID/SA) Respiratory Rate 2018-09-30 19:40:00 21 /min [facility] (LUF/DAVID/SA) O2% BldC Oximetry 2018-09-30 19:40:00 100 % [facility] (LUF/DAVID/SA) BP Systolic 2018-09-30 19:40:00 124 mm[Hg] [facility] (LUF/DAVID/SA) BP Diastolic 2018-09-30 19:40:00 88 mm[Hg] [facility] (LUF/DAVID/SA) Body Temperature 2018-09-30 19:23:00 99.3 F [facility] (LUF/DAVID/SA) Height 2018-09-30 19:23:00 66 in [facility] (F/DAVID/SA) Weight Measured 2018-09-30 19:23:00 212.52 lbs [facility] (LUF/DAVID/SA) BMI (Body Mass 2018-09-30 19:23:00 34.5 kg/m2 [facility]) [facility] (LUF/DAVID/SA) Body Temperature 2018-09-01 13:59:00 98 F [facility] (LUF/DAVID/SA) Pulse Rate 2018-09-01 12:15:00 74 /min [facility] (LUF/DAVID/SA) Respiratory Rate 2018-09-01 12:15:00 16 /min [facility] (F/DAVID/SA) O2% BldC Oximetry 2018-09-01 12:15:00 98 % [facility] (LUF/DAVID/SA) BP Systolic 2018-09-01 12:15:00 131 mm[Hg] [facility] (LUF/DAVID/SA) BP Diastolic 2018-09-01 12:15:00 78 mm[Hg] [facility] (F/DAVID/SA) Height 2018-09-01 09:16:00 64 in [facility] (F/DAVID/SA) Weight Measured 2018-09-01 09:16:00 214.24 lbs [facility] (LUF/DAVID/SA) BMI (Body Mass 2018-09-01 09:16:00 37 kg/m2 [facility]) [facility] (LUF/DAVID/SA) Body Temperature 2018-05-13 10:58:00 99 F [facility] (F/DAVID/SA) Pulse Rate 2018-05-13 10:58:00 97 /min [facility] (LUF/DAVID/SA) Respiratory Rate 2018-05-13 10:58:00 18 /min [facility] (LUF/DAVID/SA) O2% BldC Oximetry 2018-05-13 10:58:00 98 % [facility] (LUF/DAVID/SA) BP Systolic 2018-05-13 10:58:00 131 mm[Hg] [facility] (LUF/DAVID/SA) BP Diastolic 2018-05-13 10:58:00 88 mm[Hg] [facility] (LUF/DAVID/SA) Height 2018-05-13 10:58:00 64 in [facility] (LUF/DAVID/SA) Weight Measured 2018-05-13 10:58:[address] [facility] Abhinav islas [facility] (LUF/DAVID/SA) BMI (Body Mass 2018-05-13 10:58:00 35.8 [facility] (LUF/DAVID/SA) Body Temperature 2017-12-24 08:04:00 98.7 F [facility] (LUF/DAVID/SA) Respiratory Rate 2017-12-24 08:04:00 18 /min [facility] (F/DAVID/SA) O2% BldC Oximetry 2017-12-24 08:04:00 98 % [facility] (LUF/DAVID/SA) BP Systolic 2017-12-24 08:04:00 126 mm[Hg] [facility] (LUF/DAVID/SA) BP Diastolic 2017-12-24 08:04:00 86 mm[Hg] [facility] (LUF/DAVID/SA) Weight Measured 2017-12-24 08:04:[address] [facility] Abhinav On license of [facility] (LUF/DAVID/SA) Body Temperature 2017-06-20 23:28:00 97.4 F [facility] (LUF/DAVID/SA) Respiratory Rate 2017-06-20 23:28:00 20 /min [facility] (LUF/DAVID/SA) O2% BldC Oximetry 2017-06-20 23:28:00 99 % [facility] (LUF/DAVID/SA) BP Systolic 2017-06-20 23:28:00 107 mm[Hg] [facility] (LUF/DAVID/SA) BP Diastolic 2017-06-20 23:28:00 76 mm[Hg] [facility] (F/DAVID/SA) Height 2017-06-20 23:28:00 64 in [facility] (F/DAVID/SA) Weight Measured 2017-06-20 23:28:[address] [facility] S t [facility] (LUF/DAVID/SA) BMI (Body Mass 2017-06-20 23:28:00 37.5 [facility] (F/DAVID/SA) Procedures Procedure Date / Time Performing Clinician Source Performed LIPASE 2023-03-19 04:35:00 Wiliam [facility] MAGNESIUM 2023-03-19 04:35:00 Wiliam [facility] COMP. METABOLIC PANEL 2023-03-19 04:35:00 Tato Swain [facility] ([id number]) [facility] CBC WITH DIFF 2023-03-19 04:35:00 Wiliam [facility] URINALYSIS 2023-03-19 04:35:00 Wiliam [facility] CBC WITH DIFF 2023-03-19 04:35:00 Wiliam, [facility] CONSENT/REFUSAL FOR 2023-03-19 03:58:57 Doctor Unassigned, No [facility] [id number] 2023-01-21 00:00:00 JOE [facility] CBC WITH DIFF 2022-12-25 04:21:00 Komal Correa [facility] CONSENT/REFUSAL FOR 2022-12-25 03:39:49 Doctor Unassigned, No [facility] Name [facility] TEST, SERUM 2022-12-16 22:19:[address] [facility] COMP. METABOLIC PANEL 2022-12-16 22:19:00 Valentin Box [facility] ([id number]) [facility] URINE DRUG (IMMUNOASSAY) 2022-12-16 22:19:00 Valentin Box [facility] SCREEN CBC WITH DIFF 2022-12-16 22:19:00 Valentin Box [facility] URINALYSIS 2022-12-16 22:19:00 Valentin Box [facility] CONSENT/REFUSAL FOR 2022-12-16 21:59:42 Doctor Unassigned, No [facility] [place] [facility] Name [facility] CT ABDOMEN PELVIS W 2022-11-21 05:31:00 Suzanne Lopez [facility] CONTRAST [facility] POCT TEST 2022-11-21 04:40:00 Suzanne Lopez [facility] LIPASE 2022-11-21 03:35:00 Suzanne Lopez [facility] COMP. METABOLIC PANEL 2022-11-21 03:35:00 Suzanne Lopez [facility] ([id number]) [facility] CBC WITH DIFF 2022-11-21 03:35:00 Suzanne Lopez [facility] URINALYSIS 2022-11-21 03:35:00 Suzanne Lopez [facility] CONSENT/REFUSAL FOR 2022-11-21 02:48:21 Doctor Unassigned, No [facility] [place] DIAGNOSIS AND TREATMENT Name [facility] LIPASE 2022-10-26 03:56:00 Valentin Box [facility] COMP. METABOLIC PANEL 2022-10-26 03:56:00 Valentin Box [facility] ([id number]) [facility] CBC WITH DIFF 2022-10-26 03:56:00 Valentin Box [facility] URINE DRUG (IMMUNOASSAY) 2022-10-26 03:50:00 Valentin Box [facility] SCREEN URINALYSIS 2022-10-26 03:50:00 Valentin Box [facility] CONSENT/REFUSAL FOR 2022-10-26 03:29:08 Doctor Unassigned, No [facility] [place] DIAGNOSIS AND TREATMENT Name Medical Branch LIPASE 2022-10-03 05:40:00 [facility] 2022-10-03 05:40:00 Montserrat Acosta [facility] [place] COMP. METABOLIC PANEL 2022-10-03 05:40:00 [facility]errat [facility]osta [facility] ([id number] CBC WITH DIFF 2022-10-03 05:40:00 Montserrat Acosta [facility] NOTICE OF PRIVACY 2022-10-03 03:10:55 Doctor Unassigned, No [facility] PRACTICES Name Medical Branch CONSENT/REFUSAL FOR 2022-10-03 03:10:26 Doctor Unassigned, No [facility] DIAGNOSIS AND TREATMENT Name [facility] POCT SARS-COV-2 ANTIGEN 2022-06-13 23:43:00 Magdalene Lucia [facility] (BINAX NOW) Medical Branch CT ABDOMEN PELVIS WO 2022-05-07 15:06:09 Ridge Pagan [facility] CONTRAST [facility] BASIC METABOLIC PANEL 2022-05-07 14:20:00 Ridge Pagan [facility] (NA, K, CL, CO2, GLUCOSE, Medica l Branch BUN, CREATININE, CA) CBC WITH DIFF 2022-05-07 14:20:00 Ridge Pagan [facility] URINALYSIS 2022-05-07 14:20:00 Ridge Pagan [facility] CONSENT/REFUSAL FOR 2022-05-07 13:49:51 Doctor Unassigned, No [facility] DIAGNOSIS [facility] TREATMENT Name Medical Branch CT ABDOMEN PELVIS WO 2022-02-19 15:49:34 Trice Harris [facility] CONTRAST Medical Branch LIPASE 2022-02-19 14:26:00 Steven [facility] COMP. METABOLIC PANEL 2022-02-19 14:26:00 Steven Trice [facility] ([id number]) Medical Branch CBC WITH DIFF 2022-02-19 14:26:00 Steven [facility] URINALYSIS 2022-02-19 14:26:00 Steven [facility] CONSENT/REFUSAL FOR 2022-02-19 14:11:01 Doctor Unassigned, No [facility] [place] DIAGNOSIS AND TREATMENT Name Medical Branch POCT MOLECULAR FLU 2021-11-29 22:46:00 Ameena Preston y of [facility] INS INFUS DEV LT BASILIC 2020-03-15 00:00:00 [facility] VN PERQ [facility] (LUF/DAVID/SA) ULTRASONOGRAPHY LT UP EXT 2020-03-15 00:00:[address] [facility] VNS GUID [facility] (LUF/DAVID/SA) ROBOTIC LAP LYSIS OF 2020-03-02 12:56:00 [facility] ADHESIONS [facility] (LUF/DAVID/SA) LAPAROSCOPY ENTEROLYSIS 2020-03-02 00:00:[address] [facility] SEPARATE PROCEDU [facility] (LUF/DAVID/SA) COLONOSCOPY FLX DX 2020-02-26 00:00:00 [facility] kes W/COLLJ SPEC WHEN PFR [facility] (LUF/DAVID/SA) ROBOTIC RIGHT 2019-03-21 17:09:00 [facility] OOPHORECTOMY LUF (Right) Memoria l (LUF/DAVID/SA) CYSTO RGP STENT PLACEMENT 2015-04-20 14:01:[address] [facility] LUF [facility] (LUF/DAVID/SA) CYSTO RGP STENT PLACEMENT 2015-04-20 14:01:[address] [facility] LUF [facility] (LUF/DAVID/SA) Hysterectomy [facility] (LUF/DAVID/SA) Total thyroidectomy [facility] (LUF/DAVID/SA) section [facility] (LUF/DAVID/SA) ABDOMINAL ADHESIONS [facility] REMOVED [facility] (LUF/DAVID/SA) Extracorporeal shockwave [facility] lithotripsy [facility] (LUF/DAVID/SA) MULTIPLE CYSTECTOMYS DONE [facility] (LUF/DAVID/SA) MULTIPLE CYSTECTOMYS DONE [facility] (LUF/DAVID/SA) ABDOMINAL ADHESIONS [facility] REMOVED [facility] (LUF/DAVID/SA) Appendectomy [facility] (LUF/DAVID/SA) Plan of Care Planned Activity Planned Date Details Comments Source Future Scheduled 2023-01-24 COVID-19 Vaccination [facility] Test 15:47:07 (#1) [code = COVID-19 And erson [facility] [...] Nba, STLMLC STLMLC Common 08:27:[address] [facility] 2021-07-26 Outpatient Nba, STLMLC STLMLC Common 14:20:[address] [facility] 2021-07-26 Outpatient Nba, STLMLC STLMLC Common 14:05:[address] [facility] 2021-07-26 Outpatient Nba, STLMLC STLMLC Common 12:01:[address] [facility] 2021-07-26 Outpatient Nba, STLMLC STLMLC Common 11:56:[address] [facility] 2021-07-26 Outpatient Nba, STLMLC STLMLC Common 11:49:[address] [facility] 2021-07-26 Outpatient Nba, STLMLC STLMLC Common 11:48:[address] [facility] 2021-07-26 Outpatient Nba, STLMLC STLMLC Common 11:47:[address] [facility] 2021-07-[address] [facility] Common 11:42:[address] [facility] 2021-07-[address] [facility] Common 11:32:[address] [facility] 2023-03-18 2023-03-19 Emergency X Tato SWAIN [facility] ERT [id number] Univers 23:02:00 01:14:00 ity of [facility] 2023-03-18 2023-03-19 Emergency WiliamTato [facility] [id number] [facility] 23:02:00 01:14:00 Liset GAONA [id number] i [facility] [id number] [facility] [id number] [place] [address] Branch 2023-03-02 2023-03-03 RIGHT 1 YURY [facility] EMD [id number] 23:30:00 03:54:00 LOWER [facility] QUADRANT Memoria PAIN l (LUF/LI V/SA) 2023-03-02 2023-03-02 Inpatient [facility] [id number] [facility] 00:[facility]:00 00:00:00 [place] [id number] Gutierrez [facility], [id number] Memor ia [id number] l [place] (LUF/LI AVE, V/SA) JULIÁN ROSA [id number] 2023-03-02 2023-03-02 Inpatient [facility] [id number] 00:00:00 00:00:00 [place] [id number] Gutierrez [facility], [id number] Memor ia [address] [id number] l [place] (LUF/LI AVE, V/SA) JULIÁN ROSA [id number] 2023-01-21 2023-01-23 Inpatient [facility]01 [id number] [facility] 16:42:00 10:30:00 Lion 41 [facility] 2022-12-24 2022-12-24 Emergency X SUNNY [facility] ERT [id number] Univers 22:54:00 23:38:00 KOMAL melo [facility] 2022-12-24 2022-12-24 Emergency [facility] [id number] Univers 22:54:00 23:38:00 Komal GAONA [id number] i ty of [facility] [id number] [facility] [id number] [address] 2022-12-16 2022-12-16 Emergency X VASUT, [facility] ERT [id number] Univers 17:03:00 19:23:00 VALENTIN itphoebe [facility] 2022-12-16 2022-12-16 Emergency [facility] [id number] Univers 17:03:00 19:23:00 Valentin GAONA [id number] i ty of [place] [id number] [facility] [id number] [address] 2022-11-20 2022-11-21 Emergency X [facility] ERT [id number] Univers 21:54:00 02:10:00 SUZANNE melo [facility] 2022-11-20 2022-11-21 Emergency [facility] [id number] Univers 21:54:00 02:10:00 Suzanne GAONA [id number] ity of [place] 4.2.7.2.686 [facility] [id number] [address] 2022-10-25 2022-10-26 Emergency X VASUT, [facility] ERT [id number] Univers 22:33:00 01:21:00 VALENTIN melo [facility] 2022-10-25 2022-10-26 Emergency [facility] [id number] Univers 22:33:00 01:21:00 Valentin GAONA [id number] i ty [facility] [id number] [facility] [id number] [address] 2022-10-02 2022-10-03 Emergency X [facility] ERT [id number] [facility] 22:34:00 02:31:00 KHADARPRACHI it y of [facility] 2022-10-02 2022-10-03 Emergency [facility] [id number] Univers 22:34:00 02:31:00 Khadaralexharitha GAONA [id number] ity luigi [place] 4.2.7.2.686 [place] [facility] [id number] [address] 2022-08-12 2022-08-12 Outpatient FOG_Dunn_Wa AOSM AOSM 643 [id number] Adelia 00:00:00 00:00:00 Jhon [id number] [facility] 2022-07-22 2022-07-22 Outpatient FOG_Dunn_Wa AOSM AOSM 643 [id number] Adelia 00:00:00 00:00:00 Jhon [id number] [facility] 2022-07-06 2022-07-06 Outpatient FOG_Dunn_Wa AOSM AOSM 643 [id number] Adelia 00:00:00 00:00:00 Jhon [id number] [facility] 2022-06-17 2022-06-17 Outpatient FOG_Dunn_Wa AOSM AOSM 643 [id number] Adelia 00:00:00 00:00:00 Jhon [id number] [facility] 2022-06-13 2022-06-13 Outpatient R KHARI [facility] [id number] Univers 17:20:00 17:41:53 MAGDALENE melo [facility] 2022-06-13 2022-06-13 Urgent Magdalene Lucia [facility] [id number] Univers 17:20:00 17:41:53 Care Unknown, Attending [facility] [id number] ity [facility] [id number] Jacques as SUE?BLEA [id number] [address] MEDICAL OFFICE [facility] 2022-06-13 2022-06-13 Telephone Khari [facility] [id number] Univers 00:00:00 00:00:00 Magdalene HEALTH [id number] it y of [place] 4.2.7.2.686 Jacques as SUE?BLE [id number] Nd dical [address] MEDICAL OFFICE BUILDING 2022-05-13 2022-05-13 Outpatient FOG_Dunn_Wa AOSM AOSM [id number] [id number] Aedlia 00:00:00 00:00:00 Jhon [id number] [facility] 2022-05-07 2022-05-07 Emergency X EJ [facility] ERT [id number] Univers 07:57:00 09:45:00 RIDGE phoebe [facility] 2022-05-07 2022-05-07 Emergency Ej [facility] [id number] Univers 07:57:00 09:45:00 Ridge GAONA [id number] [facility] [id number] [place] [facility] [id number] [address] 2022-05-07 2022-05-07 Outpatient FOG_Dunn_Vita AOSM AO 643 [id number] Adelia 00:00:00 00:00:00 Jhon [id number] [facility] 2022-05-07 2022-05-07 Patient Doctor REHAN [id number] Univers 00:00:00 00:00:00 Secure Msg Unassigned, ROSA [id number] ity of [place] [facility] [id number] Jacques as [id number] [facility] 019 [place] 2022-04-23 2022-04-23 Emergency EM PACO Quintero [id number] [facility] 09:39:00 10:55:00 Truman [facility] 2022-02-19 2022-02-19 Emergency X STEVEN [facility] ERT [id number] Univers 09:15:00 11:05:00 TRICE melo [facility] 2022-02-19 2022-02-19 Emergency Steven [facility] [id number] [id number] Univers 09:15:00 11:05:00 Trice GAONA 350.1.13.10 i ty of [facility] [place].2.[id number] [place] [id number] [place] 2021-11-29 2021-11-29 [facility] 1.2.840.114 [id number] Univers 17:40:00 18:00:00 Care [facility] 350.1.13.10 it y of URIAH 4.2.7.2.686 Jacques as SUE?BLEA [phone] Nd dical [address] MEDICAL OFFICE BUILDING 2021-11-29 2021-11-29 [facility] [id number] Univers 17:40:00 17:40:00 AM[facility] 2021-11-29 2021-11-29 Outpatient [facility] [id number] Univers 17:40:00 17:40:[facility] 2021-10-26 2021-10-26 Office GEOVANI Blas, 1.2.840.1 [id number] Univers 09:45:00 10:47:06 Visit Praveen 72519.1.1 ity of 3.412.2.7 [place] .3.482453 .8 [facility] 2021-10-26 2021-10-26 Travel 1.2.840.1 [id number] [id number] Univers 00:00:00 00:00:00 71928.1.1 350.1.13.41 ity of 3.412.2.[place]3.[place] 084.8 .8 [facility] 2021-10-15 2021-10-15 ROSEMARIE 1 LONI BERMUDEZ EMD [id number] [facility] 22:25:00 22:45:00 CONSCIOUS EKTA calle SIMULATION Memor prabhakar l (TIERA/YUKI Rolon/) 2021-10-15 2021-10-15 [facility]patient [facility] [place] [id number]-[id number] [facility] 00:00:00 00:00:00 [place] [id number] Gutierrez [place], [phone] Memor ia [address] 097eaa stefanie MEHTA ([address], V/SA) JULIÁN ROSA [id number] 2021-10-15 2021-10-15 Inpatient [facility] 2f6e c8b8-[address] 00:00:00 00:00:00 [place] [id number] Gutierrez [facility], [phone] Memor ia [address] [id number] stefanie MEHTA (LUF[address], V/SA) JULIÁN ROSA [id number] 2021-08-29 2021-08-29 Outpatient R [facility]ERE [facility] [id number] Univers 16:20:00 16:20:00 PAT[facility] 2021-08-07 2021-08-07 Emergency EM FRANKIE Clements AMPARO [id number] [facility] 09:36:00 12:55:00 Olga 19 [facility] 2021-08-01 2021-08-02 Emergency X DEVORA [facility] ERT [id number] Univers 22:00:00 01:17:00 [facility] [facility] 2021-08-01 2021-08-02 [facility] [id number] Univers 22:00:00 01:17:00 Leanne GAONA 350.1.13.10 [facility] 4.2.7.2.686 [facility] [phone] [facility] 084 Branch 2021-06-28 2021-06-28 Outpatient Irwin LUCIA [facility] [id number] Univers 17:30:00 17:30:00 MAGDALENE [facility] 2021-06-22 2021-06-22 Letter REHAN Chaves [id number] [id number] Univers 00:00:00 00:00:00 (Out) Eve LEE 350.1.13.10 it [facility] 4.2.7.2.686 Jacques [id number] [facility] 019 Branch 2021-06-22 2021-06-22 Park Carranza [facility] 1.2.840.114 [id number] Univers 00:00:00 00:00:00 [employer] 350.1.13.10 it y of [facility] 4.2.7.2.686 Jacques as SUE?BLEA [id number] [address] MEDICAL OFFICE [facility] 2021-06-21 2021-06-21 Outpatient R TERE [facility] [id number] Univers 11:00:00 12:14:12 RANIA ity of [facility] 2021-06-21 2021-06-21 Urgent BenitobradlyPatrick merritt [facility] 1.2.840.114 [id number] Univers 11:00:00 11:20:00 Care [facility] 350.1.13.10 ity of [place] 4.2.7.2.686 Jacques as SUE?BLEA [id number] [address] MEDICAL OFFICE [facility] 2021-06-21 2021-06-21 Telephone Tere [facility] 1.2.840.114 [id number] Univers 00:00:00 00:00:00 RanRiiid 350.1.13.10 it y of [place] 4.2.7.2.686 Jacques as SUE?BLEA [id number] [address] MEDICAL OFFICE [facility] 2021-06-21 2021-06-21 Letter Doctor REHAN 1.2.840.114 [id number] Univers 00:00:00 00:00:00 (Out) Unassigned, ROSA 350.1.13.10 ity of [place] [facility] 4.2.7.2.686 Jacques as [id number] [address] 2021-05-30 2021-05-30 (TEL) STLMLC STLMLC [id number] Co mmon 00:00:00 00:00:00 [facility] 2021-05-29 2021-05-29 (TEL) STLMLC STLMLC [id number] Co mmon 00:00:00 00:00:00 [facility] 2021-04-26 2021-04-26 (TEL) STLMLC STLMLC [id number] Co mmon 00:00:00 00:00:00 [facility] 2021-04-23 2021-04-[address] [facility] [employer] [id number] [facility] St 00:46:00 02:08:00 D SETH Menchacalucia ABDOMINAL Memori a PAIN l (LUF/LI V/SA) 2021-04-23 2021-04-23 Inpatient [facility] fb11 ce73-[address] [facility] St 00:00:00 00:00:00 [place] k48-7o08-4 [facility], [id number]-br9xd3 Memor ia [address] a89c0d l [place] (LUF/LI AVE, V/SA) [place] [address] 2021-04-23 2021-04-23 Inpatient [facility] 6aab 1878-0 [facility] 00:00:00 00:00:00 [place] d9p-3840-0 [facility], [id number] Memor ia [address] 822c23 l [place] (LUF/LI AVE, V/[place]) [place] [address] 2021-03-24 2021-03-24 ANXIETY 1 COTTON, [facility] [id number] [facility] 10:25:00 12:27:00 DISORDER [facility] D [address] [place] (LUF/LI AVE, V/SA) [place] [address] 2021-03-24 2021-03-24 Inpatient [facility] f871 cc2a-c [facility] 00:00:00 00:00:00 [place] 9aa-405b-9 [facility], [id number] Memor ia [address] cf90e3 l [place] (LUF/LI AVE, V/SA) [place] [address] 2021-03-24 2021-03-24 Inpatient [facility] e945 ff19-c [facility] 00:00:00 00:00:00 [place] j79-5w58-a [facility], 88b-033ffa Memor ia [address] 683da2 l [place] (LUF/LI AVE, V/SA) [place] [address] 2021-03-23 2021-03-23 Orders Nofies, 1.2.840.1 [id number] Univers 00:00:00 00:00:00 Only Viktoriya Merritt 32676.1.1 ity of 3.412.2.7 [place] [id number] MD Carter8 [facility] 2021-03-10 2021-03-10 UTI SITE E KOSCIUK, [facility] [id number] [facility] St 10:29:00 13:50:00 NOT JUAN [facility] [place] a [address] [place] (LUF/LI AVE, V/SA) [place] [address] 2021-03-10 2021-03-10 Inpatient [facility] 16e7 6598-b [facility] St 00:00:00 00:00:00 [place] l9n-6513-0 [facility], q3g-958p5s Memor ia [address] 8ebb0b l [place] (LUF/LI AVE, V/[place]) [place] [id number] 2021-03-10 2021-03-10 Inpatient [facility] 518c 3339-c [facility] St 00:00:00 00:00:00 [place] z15-6kx8-6 [facility], l7j-3eb43u Memor ia [address] f904e5 l [place] (LUF/LI AVE, V/SA) [place] [address] 2021-02-23 2021-02-23 RIGHT E [facility] [id number] [facility] [facility] St 08:15:00 12:44:00 [facility], Memoria PAIN [address] [place] (LUF/LI AVE, V/SA) [place] [address] 2021-02-23 2021-02-23 Inpatient [facility] 89b5 d1de-[address] 00:00:00 00:00:00 [place] 09f-406d-9 [facility], 74d-24f9de Memor ia [address] e8fcf1 l [place] (LUF/LI AVE, V/[place]) [place] [id number] 2021-02-23 2021-02-23 Inpatient [facility] [place] [id number] e20f-[address] 00:00:00 00:00:00 [place] 1ef-425c-a [facility], [id number] Memor ia [address] 1655de l [place] (LUF/LI AVE, V/SA) [facility] [place] [id number] 2021-01-10 2021-01-10 CALCULUS Jake DYKES, [facility] [place] [id number] [facility] 00:21:00 03:06:00 OF KIDNEY SETH [facility], Memoria [address] [place] (LUF/LI AVE, V/SA) [place] [id number] 2021-01-10 2021-01-10 Inpatient [facility] 2205-c [facility] 00:00:00 00:00:00 [place] u85-2h42-a [facility], 72a-[id number] Memor ia [address] 3fb6a8 l [place] (LUF/LI AVE, V/SA) [place] [address] 2021-01-10 2021-01-10 Inpatient [facility] fe83-e [facility] 00:00:00 00:00:00 [place] ff6-4d87-9 [facility], [id number]-[id number] Memor ia [address] e09ed4 l [place] (LUF/LI AVE, V/SA) [place] [address] 2020-12-27 2020-12-27 Emergency [facility] Zarina [id number] 37 [place] 00:00:00 00:00:[address] 2020-12-22 2020-12-22 Outpatient 3 LONI MURILLO TIC [id number] 09:00:00 09:00:00 SKYE Dhaliwal Memoria l (LUF/LI V/SA) 2020-12-13 2020-12-13 Emergency EM SHEY Perez [facility] [id number] [facility] 01:53:00 06:36:00 Tangela Stern [facility] 2020-12-12 2020-12-12 RIGHT Jake COTTON, [facility] [id number] 12:33:00 14:00:00 LOWER [facility] [place], Memoria PAIN [address] (LUF/LI AVE, V/SA) [place] [address] 2020-12-12 2020-12-12 Inpatient [facility] e2c0 cb47-b [facility] 00:[facility]:00 00:00:00 [place] 82f-45d0-a [facility], 13e-0f9f6d Memor ia [address] q8i187 l [place] (LUF/LI AVE, V/[place]) [place] [id number] 2020-12-12 2020-12-12 Inpatient [facility] 43ed f7fe-[address] 00:00:00 00:00:00 [place] o30-57pc-h [facility], 316-6x513d Memor ia [address] 70ade3 l [place] (LUF/LI AVE, V/SA) [place] [address] 2020-12-08 2020-12-08 UNSPECIFIE Jake SOTOMAYOR, [facility] [id number] [facility] St 09:44:00 12:26:00 D WYATT [facility] A[facility]OM[facility]AL [place] PAIN [address] (LUF/LI AVE, V/SA) [place] [id number] 2020-12-08 2020-12-08 Inpatient [facility] 6a3f a794-a [facility] St 00:00:00 00:00:00 [place] 7z4-8r93-8 [facility], [id number] Memor ia [address] 9973a7 l [place] (LUF/LI AVE, V/SA) [place] [address] 2020-11-25 2020-11-25 UNSPECIFIE [facility] [id number] 00:13:00 00:30:00 D [facility]OM[facility]AL [place] PAIN [address] (LUF/LI AVE, V/SA) [place] [address] 2020-11-25 2020-11-25 Inpatient [facility] 3041 db6a-[address] 00:00:00 00:00:00 [place] fb6-4754-b [facility], b5t-nva273 Memor ia [address] 841f4f l [place] (LUF/LI AVE, V/[place]) [place] [address] 2020-11-25 2020-11-25 Inpatient [facility] a3eb ed11-a [facility] St 00:00:00 00:00:00 [place] k61-4si7-5 Gutierrez [facility], [id number] Memor ia [address] ea5dda l [place] (LUF/LI AVE, V/SA) [place] [address] 2020-11-21 2020-11-21 ENDOMETRIO 1 [facility] [id number] [facility] St 07:14:00 09:53:00 SIS [place] [facility] UNSPECIFIE [place], Memor ia D [address] (LUF/LI AVE, V/SA) [place] [id number] 2020-11-21 2020-11-21 Inpatient [facility] 90f0 278b-[address] [facility] St 00:00:00 00:00:00 [place] 1q7-71uz-3 [facility], 4bb-5eeded Memor ia [address] [id number] l [place] (LUF/LI AVE, V/SA) [place] [address] 2020-11-21 2020-11-21 Inpatient [facility] 3b21 9c7a-[address] [facility] St 00:00:00 00:00:00 [place] 30a-405e-8 [facility], [id number] Memor ia [address] 3040c4 l [place] (LUF/LI AVE, V/SA) [place] [address] 2020-11-14 2020-11-14 GASTRITIS 1 LONI COTTON EMD [id number] 09:27:00 14:37:00 UNS REHAN Isra WITHOUT Memoria BLEEDING l (LUF/LI V/SA) 2020-11-14 2020-11-14 Inpatient [facility] d4fe d3e2-[address] 00:00:00 00:00:00 [place] 3cf-4b7a-a [facility], 2ad-d46ca7 Memor ia [address] 2d56cc l [place] (LUF/LI AVE, V/SA) [place] [id number] 2020-11-14 2020-11-14 Inpatient [facility] 324e 65b9-b [facility] St 00:00:00 00:00:00 [place] 464-403c-8 [facility], [id number] Memor ia [address] [id number] l [place] (LUF/LI AVE, V/SA) [place], [place] [address] 2020-11-08 2020-11-08 OTHER E YURY, [facility] [id number] [facility] St 08:04:00 13:13:00 CHRONIC REHAN [facility] [address] (LUF/LI AVE, V/SA) [place] [id number] 2020-11-08 2020-11-08 Inpatient [facility] 8079 b52c-c [facility] 00:00:00 00:00:00 [place] ed8-4ae3-8 [facility], [id number] Memor ia [address] cf6d84 l [place] (LUF/LI AVE, V/SA) [place] [address] 2020-11-08 2020-11-08 Inpatient [facility] 0f07 dc59-[address] [facility] St 00:00:00 00:00:00 [place] 292-4184-b [facility], 8ff-44cd4a Memor ia [address] d1bfd4 l [place] (LUF/LI AVE, V/SA) [place], [facility] 2020-11-08 2020-11-08 Inpatient [facility] 40b4 e14c-[address] 00:00:00 00:00:00 [place] 784-40e4-9 [facility], m76-02v363 Memor ia [address] 29ea9a l [place] (LUF/LI AVE, V/SA) [place] [id number] 2020-11-01 2020-11-01 NAUSEA Jake MUÑOZ, [facility] [id number] 00:27:00 03:55:00 WITH AMBROSIO [facility] VOMITING [place], Memoria UNSPECIFIE [address] D [place] (LUF/LI AVE, V/SA) [place] [id number] 2020-11-01 2020-11-01 Inpatient [facility] 1ec3 64c1-c [facility] 00:00:00 00:00:00 [place] t76-7lmw-o [facility], 85a-x0978v Memor ia [address] a5532c l [place] (LUF/LI AVE, V/SA) [place] [address] 2020-11-01 2020-11-01 Inpatient [facility] 79c0 b023-[address] 00:00:00 00:00:00 [place] 8r7-787d-v [facility], [id number] Memor ia [address] 783eec l [place] (LUF/LI AVE, V/SA) [place] [address] 2020-10-04 2020-10-05 OTHER E RODRICK, [facility] [id number] 23:32:00 01:00:00 CHRONIC JUAN [place] [facility] [place] [address] [place] (LUF/LI AVE, V/SA) [place] [address] 2020-10-04 2020-10-04 Inpatient [facility] b016 f3f5-a [facility] 00:00:00 00:00:00 [place] 2i8-1e2j-c [facility], [id number]-[id number] Memor ia [address] bb93d3 l [place] (LUF/LI AVE, V/SA) [facility] [place] [address] 2020-10-04 2020-10-04 Inpatient [facility] ea96 0c7a-[address] 00:00:00 00:00:00 [place] 25c-4997-b [facility], o58-[id number] Memor ia [address] 1f27e6 l [place] (LUF/LI AVE, V/SA) [place] [address] 2020-09-18 2020-09-18 OTHER E [facility] [id number] 01:00:00 04:44:00 CHRONIC [place] [facility] [place], Memoria [address] (LUF/LI AVE, V/SA) [place] [address] 2020-09-18 2020-09-18 Inpatient [facility] b80a 7ee5-[address] 00:00:00 00:00:00 [place] 8y8-807u-6 [facility], [id number] Memor ia [address] [id number] l [place] (LUF/LI AVE, V/SA) [place] [id number] 2020-09-18 2020-09-18 Inpatient [facility] 1a33 0198-a [facility] St 00:00:00 00:00:00 [place] 921-44cf-8 [facility], [id number] Memor ia [address] [id number] l [place] (LUF/LI AVE, V/SA) [place] [address] 2020-09-12 2020-09-12 ENDOMETRIO E RODRICK, [facility] [id number] [facility] St 00:46:00 02:38:00 SIS JUAN [facility] UNSPECIFIE [place], Memor ia D [address] (LUF/LI AVE, V/SA) [place] [id number] 2020-09-12 2020-09-12 Inpatient [facility] 726d 153b-a [facility] St 00:00:00 00:00:00 [place] y4q-9162-9 [facility], [id number] Memor ia [address] 2913af l [place] (LUF/LI AVE, V/SA) [place] [id number] 2020-09-12 2020-09-12 Inpatient [facility] 9a2d b59c-c [facility] 00:[facility]:00 00:00:00 [place] 607-4f36-8 [facility], [id number] Memor ia [address] 655cce l [place] (LUF/LI AVE, V/SA) [place] [address] 2020-08-22 2020-08-22 OTHER E SANACI, [facility] [id number] [facility] St 01:13:00 03:24:00 CHRONIC [facility], Memoria [address] [place] (LUF/LI AVE, V/SA) JULIÁN ROSA [address] 2020-08-22 2020-08-22 Inpatient [facility] 7a1d d2a9-[address] 00:00:00 00:00:00 [place] 050-4a19-8 [facility], 62e-7ef55a Memor ia [address] 6eae2a l [place] (LUF/LI AVE, V/[place]) [place] [id number] 2020-08-22 2020-08-22 Inpatient [facility] 53d3 2542-f [facility] 00:[facility]:00 00:00:00 [place] 72a-4479-9 [facility], 7da-c14e55 Memor ia [address] 284d1a l [place] (LUF/LI AVE, V/[place]) [place] [id number] 2020-08-06 2020-08-06 Inpatient E RODRICK, [facility] [id number] 01:21:00 03:35:00 [facility] [address] [place] (LUF/LI A[address], V/SA) [place] [id number] 2020-08-06 2020-08-06 Inpatient [facility] 07b7 067c-a [facility] 00:[facility]:00 00:00:00 [place] 4f5-8fi9-7 [facility], [id number] Memor ia [address] 4f7e15 l [place] (LUF/LI AVE, V/[place]) [place] [id number] 2020-07-19 2020-07-19 RIGHT E YURY, [facility] [id number] 07:50:00 11:20:00 LOWER [facility] [place] PAIN [address] (LUF/LI A[address], V/SA) [place] [address] 2020-07-19 2020-07-19 Inpatient [facility] 625d 6050-c [facility] 00:00:00 00:00:00 [place] 92c-4e48-9 [facility], fb2-aa7c63 Memor ia [address] [id number] l [place] (LUF/LI A[address], V/[place]) [place] [address] 2020-07-19 2020-07-19 Inpatient [facility] 0f28 [id number] [facility] St 00:00:00 00:00:00 [place] bbb-4c99-b [facility], 7cf-[id number] Memor ia [address] ca6e76 l [place] (LUF/LI AVE, V/SA) [place] [address] 2020-07-05 2020-07-05 OTHER E RODRICK, [facility] [id number] [facility] St 02:42:00 05:00:00 CHRONIC JUAN [facility], Memoria [address] (LUF/LI A[address], V/SA) [place] [address] 2020-07-05 2020-07-05 Inpatient [facility] 525e 4189-f [facility] St 00:00:00 00:00:00 [place] bff-495f-b [facility], h27-1500hx Memor ia [address] 7ec68b l [place] (LUF/LI AVE, V/SA) [place] [address] 2020-07-05 2020-07-05 Inpatient [facility] c54b 2c2e-e [facility] St 00:00:00 00:00:00 [place] 987-4ea3-9 [facility], [id number] Memor ia [address] [id number] l [place] (LUF/LI A[address], V/SA) [facility] [place] [id number] 2020-06-10 2020-06-10 (TEL) [facility] [id number] Co mmon 00:00:00 00:00:00 [facility] 2020-06-07 2020-06-07 Inpatient 1 YURY, [facility] [id number] [facility] St 12:56:00 19:04:[address] [facility] Memoria [address] (LUF/LI A[address], V/SA) [place] [address] 2020-06-07 2020-06-07 Inpatient [facility] [id number] [facility] 00:[facility] 00:[facility]:00 [place] [id number] Gutierrez [facility], [phone] [facility] [id number] ([address], V/SA) [place] [address] 2020-05-31 2020-05-31 Inpatient E COTTON, [facility] [id number] [facility] St 09:31:00 14:13:00 [facility] [address], V/SA) [place] [address] 2020-05-10 2020-05-10 Outpatient STLMLC STLMLC [id number] Common 00:00:00 00:00:00 [facility] 2020-05-09 2020-05-09 Outpatient STLMLC STLMLC [id number] Common 00:00:00 00:00:00 [facility] 2020-05-05 2020-05-05 Outpatient STLMLC STLMLC [id number] Common 00:00:00 00:00:00 [facility] 2020-05-02 2020-05-02 Outpatient STLMLC STLMLC [id number] Common 00:00:00 00:00:00 [facility] 2020-05-02 2020-05-02 Outpatient STLMLC STLMLC [id number] Common 00:00:00 00:00:00 [facility] 2020-04-29 2020-04-29 Outpatient STLMLC STLMLC [id number] Common 00:00:00 00:00:00 [facility] 2020-04-25 2020-04-25 LEFT LOWER E [facility] [id number] 16:46:00 21:30:[address] [facility] [address], V/SA) [place] [address] 2020-04-22 2020-04-22 Outpatient STLMLC STLMLC [id number] Common 00:00:00 00:00:00 [facility] 2020-04-20 2020-04-20 PROC&TX [facility] [id number] 15:39:00 16:03:00 NOT [facility] OUT PT [address] (TIERA/YUKI WEBB, V/SA) [place]ÁN ROSA [id number] 2020-04-20 2020-04-20 Outpatient STLMLC STLMLC [id number] Common 00:00:00 00:00:00 [facility] 2020-04-20 2020-04-20 Outpatient STLMLC STLMLC [id number] Common 00:00:00 00:00:00 [facility] 2020-04-15 2020-04-15 Outpatient STLMLC STLMLC [id number] Common 00:00:00 00:00:00 [facility] 2020-04-13 2020-04-13 Outpatient STLMLC STLMLC [id number] Common 00:00:00 00:00:00 [facility] 2020-04-12 2020-04-12 Outpatient STLMLC STLMLC [id number] Common 00:00:00 00:00:00 [facility] 2020-04-11 2020-04-11 Outpatient STLMLC STLMLC [id number] Common 00:00:00 00:00:00 [facility] 2020-04-08 2020-04-08 Outpatient STLMLC STLMLC [id number] Common 00:00:00 00:00:00 [facility] 2020-04-06 2020-04-06 Outpatient STLMLC STLMLC [id number] Common 00:00:00 00:00:00 [facility] 2020-04-04 2020-04-04 Outpatient STLMLC STLMLC [id number] Common 00:00:00 00:00:00 [facility] 2020-03-31 2020-03-31 Outpatient STLMLC STLMLC [id number] Common 00:00:00 00:00:00 [facility] 2020-03-29 2020-03-29 Outpatient GEOVANI BLAS [facility] [id number] 00:00:00 00:00:00 PRAVEEN payton 2020-03-29 2020-03-29 Outpatient STLMLC STLMLC [id number] Common 00:00:00 00:00:00 [facility] 2020-03-28 2020-03-28 Outpatient STLMLC STLMLC [id number] Common 00:00:00 00:00:00 [facility] 2020-03-22 2020-03-22 Outpatient STLMLC STLMLC [id number] Common 00:00:00 00:00:00 [facility] 2020-03-21 2020-03-21 Outpatient STLMLC STLMLC [id number] Common 00:00:00 00:00:00 [facility] 2020-03-20 2020-03-20 FEDE COTTON, [facility] [id number] [facility] 17:08:00 22:56:00 ABDOMINAL REHAN [facility] PAIN [facility] UNSPECIFIE [address] ([address], V/SA) [place] [address] 2020-03-14 2020-03-17 CELLULITIS Jake TRMAYA, [facility] [id number] 14:54:00 11:30:00 OF QUAKER [facility] ABDOMINAL [facility] a WALL [address] ([address], V/SA) [place] [address] 2020-03-03 2020-03-03 Outpatient [facility] [id number] Common 13:33:00 13:33:00 Clinics [facility] I [facility] 2020-03-02 2020-03-02 ALEJANDRA WOLFE, [facility] [id number] 05:58:00 15:35:00 PERITON LIZBETH [facility] POSTINFECT [address] MEHTA (LUF/LI A[address], V/SA) [place] [address] 2020-03-02 2020-03-02 Outpatient STLMLC STLMLC [id number] Common 00:00:00 00:00:00 [facility] 2020-03-01 2020-03-01 Outpatient [facility] [id number] Common 09:15:00 09:15:00 Clinics [facility] 2020-02-29 2020-02-29 Outpatient [facility] [id number] Common 09:30:00 09:30:00 [facility] 2020-02-25 2020-02-27 LOWER E COTTON, [facility] [id number] [facility] 13:21:00 12:09:00 ABDOMINAL REHAN [facility] s PAIN [place], [place] UNSPECIFIE [address] ([address]F/LI A[address], V/SA) [place] [id number] 2020-02-25 2020-02-25 UNSPECIFIE E RODRICK, [facility] [place] [address] [id number] [facility] 00:40:00 05:00:00 D JUAN [facility] ABDOMINAL [place], Mem[place] a PAIN [address] (LUF/LI AVE, V/SA) [place] [address] 2020-01-25 2020-01-25 LOW BACK 1 COTTON, [facility] [id number] [facility] 11:28:00 13:15:00 PAIN REHAN [facility] [place] [address] ([address]F/LI A[address], V/SA) [place] [address] 2020-01-18 2020-01-18 Outpatient [facility] [id number] Common 11:45:00 11:45:00 [facility] 2019-12-09 2019-12-09 OTHER E [facility] [address] [id number] [facility] 03:03:00 05:08:00 CHRONIC [facility] PAIN [place] [address] ([address]F/LI A[address], V/SA) [place] [address] 2019-11-24 2019-11-24 UNSPECIFIE E [facility] [address] [id number] [facility] 00:31:00 05:30:00 D [facility] ABDOMINAL [place], Mem[place] a PAIN [address] (LUF/LI A[address], V/SA) [place] [address] 2019-10-07 2019-10-07 RIGHT 1 COTTON, [facility] [place] [id number] [facility] 20:35:00 23:10:00 LOWER REHAN [facility] [place] [place] PAIN [address] (LUF/LI A[address], V/SA) [place] [address] 2019-09-20 2019-09-20 RIGHT 1 YURY, [facility] [id number] 00:33:00 04:23:00 LOWER REHAN [facility] [place] PAIN [address] ([address]/LI A[address], V/SA) [place] [address] 2019-08-17 2019-08-17 UNSPECIFIE 1 RIVERA, [facility] [id number] 02:18:00 04:45:00 D QUAKER [facility] [place]OM[facility]AL [place] PAIN [address] ([address], V/SA) [facility] [address] 2019-04-22 2019-04-22 [facility] [id number] Common 12:03:00 12:03:00 Clinics [facility] 2019-04-14 2019-04-14 Outpatient [facility] [id number] Common 16:12:00 16:12:00 [facility] 2019-04-06 2019-04-06 Outpatient [facility] [id number] Common 12:16:00 12:16:00 [facility] 2019-03-31 2019-03-31 Outpatient [facility] [id number] Common 14:00:00 14:00:00 [facility] 2018-12-07 2018-12-07 UNSPECIFIE 1 QUINTIN BRITO [facility] [id number] [facility] 01:06:00 04:45:00 D OVARIAN [place] [facility] CYST RIGHT [place] SIDE [address] ([address], V/SA) [facility] [address] 2018-10-29 2018-10-29 N-PRSS CHR BLAKESTAD, [facility] OF [facility] [id number] [facility] 06:59:00 23:59:00 ULCR SKIN MIKY [facility] [address] ([address]/LI [address], V/SA) [place] [address] 2018-10-22 2018-10-22 N-PRSS CHR BLALUCIATAD, M[facility] OF [facility] [id number] [facility] St 07:20:00 23:59:00 ULCR SKIN MIKY [facility] [address] ([address], V/SA) [place] [address] 2018-10-15 2018-10-15 N-PRSS CHR O BLALUCIATAD, M[facility] OF [facility] [id number] [facility] St 07:08:00 23:59:00 ULCR SKIN MIKY [facility] [address] ([address]/LI [address], V/SA) [place] [address] 2018-09-30 2018-10-01 INFCT FOL 1 SHABNAM, [facility] [id number] [facility] St 18:46:00 01:05:00 PRC SUPF DIMAS [facility] SIT INIT [address] ([address], V/SA) [place] [address] 2018-09-01 2018-09-01 OTH 1 WANDA, [facility] [id number] [facility] St 09:12:00 14:00:00 [facility]INFL [facility]O [facility] a TUBE&BRD [address] (LUF/LI A[address], V/SA) [place] [address] 2018-05-13 2018-05-13 Inpatient 1 WANDA, [facility] [place] [id number] [facility] St 10:52:00 13:46:00 CLEMENT [facility] [address] ([address], V/SA) [place] [address] 2017-12-24 2017-12-24 UNSPECIFIE 1 DARYL, QUINTIN [facility] [id number] [facility] St 07:51:00 13:52:00 D OVARIAN [facility] s CYST RIGHT [place], Memor ia SIDE [address] ([address], V/SA) [place] [id number] 2017-06-20 2017-06-21 HYDRONPHRO 1 RODRICK, [facility] [id number] [facility] St 23:01:00 03:55:00 S JUAN [facility] RENL&URETR [place], [place] ia L CALCUL [address] (LUF/LI A[address], V/SA) [place] [address] 2017-05-13 2017-05-13 OTHER 3 MERLE, [facility] [id number] [facility] [facility] St 15:40:00 23:59:00 FATIGUE ASA [facility], [facility]oria [address] ([address], V/SA) [place] [address] Results Test Description Test Time Test Comments [...] 33.8 g/dL 31.6-35.1 RDW-SD (test code = 21078-7) 43.0 fL 39.0-49.9 RDW-CV (test code = 788-0) 13.1 % 12.0-15.5 PLT (test code = 777-3) 273 See_Comment [Au tomated message] The system which ge nerated this result transmit michael reference range: 166 - 35 8 10*3/?L. The reference range was not used to interpret th is result as normal/abnormal . MPV (test code = 17060-6) 8.9 fL 9.5-12.9 L NRBC/100 WBC (test code = 0.0 See_Comment [ Automated message] The 6001637728) system which Jolancer nerated this result transmit michael reference range: 0.0 - 10 .0 /100 WBCs. The reference r bruce was not used to interpr et this result as normal/abnor mal. NRBC x10^3 (test code = See_Comment [Au tomated message] The 7370088141) system which [employer] nerated this result transmit michael reference range: 10*3/?L. The reference range was not u sed to interpret this result as normal/abnormal . GRAN MAT (NEUT) % (test code 65.3 % = 770-8) IMM GRAN % (test code = 2.20 % 9166930986) LYMPH % (test code = 736-9) 25.8 % MONO % (test code = 5905-5) 6.2 % EOS % (test code = 713-8) 0.1 % BASO % (test code = 706-2) 0.4 % GRAN MAT x10^3(ANC) (test 6.19 10*3/uL 1.88-7.09 code = 8198303297) IMM GRAN x10^3 (test code = 0.21 10*3/uL 0.00-0.06 H 3707229864) LYMPH x10^3 (test code = 2.45 10*3/uL 1.32-3.29 731-0) MONO x10^3 (test code = 0.59 10*3/uL 0.33-0.92 742-7) EOS x10^3 (test code = 0.03-0.39 L 711-2) BASO x10^3 (test code = 0.04 10*3/uL 0.01-0.07 704-7) TOXIC CHANGES (test code = Present A 803-7) Lab Interpretation (test Abnormal code = 89634-3) [facility]. METABOLIC PANEL (50134)2023-03-19 05:03:48 Test Item Value Reference Range Interpretation Comments NA (test code = 138 mmol/L 135-145 4570909426) K (test code = 4.5 mmol/L 3.5-5.0 4112055103) CL (test code = 107 mmol/L 98-108 6152236129) CO2 TOTAL (test code = 22 mmol/L 23-31 L 7440962590) AGAP (test code = 9 2-16 9284472670) BUN (test code = 19 mg/dL 7-23 6606909239) GLUCOSE (test code = 81 mg/dL 70-110 9390772109) CREATININE (test code = 0.57 mg/dL 0.50-1.04 1811659349) TOTAL BILI (test code = 0.3 mg/dL 0.1-1.2 4537490629) CALCIUM (test code = 9.4 mg/dL 8.6-10.6 8408328842) T PROTEIN (test code = 6.9 g/dL 6.3-8.2 9428555428) ALBUMIN (test code = 4.2 g/dL 3.5-5.0 6601274079) ALK PHOS (test code = 73 U/L 34-122 5229115515) ALTv (test code = 23 U/L 5-35 1742-6) AST(SGOT) (test code = 25 U/L 13-40 2490558717) eGFR (test code = 120.0 mL/min/1.73m2 0451235054) RENZO (test code = RENZO) Association of [...] tests). Lab Interpretation Abnormal (test code = 29544-8) [facility] 05:03:48 Test Item Value Reference Range Interpretation Comments MAGNESIUM (test code = 5708945389) 2.0 mg/dL 1.7-2.4 Lab Interpretation (test code = Normal 88447-9) [facility]. METABOLIC PANEL (57550)2023-03-19 05:03:48 Test Item Value Reference Range Interpretation Comments NA (test code = 138 mmol/L 135-145 2486575854) K (test code = 4.5 mmol/L 3.5-5.0 1831818594) CL (test code = 107 mmol/L 98-108 2901093597) CO2 TOTAL (test code = 22 mmol/L 23-31 L 7072465422) AGAP (test code = 9 2-16 3864021032) BUN (test code = 19 mg/dL 7-23 5815099592) GLUCOSE (test code = 81 mg/dL 70-110 1047181652) CREATININE (test code = 0.57 mg/dL 0.50-1.04 7020396040) TOTAL BILI (test code = 0.3 mg/dL 0.1-1.3 9845921560) CALCIUM (test code = 9.4 mg/dL 8.6-10.6 0312512673) T PROTEIN (test code = 6.9 g/dL 6.3-8.2 5322460780) ALBUMIN (test code = 4.2 g/dL 3.5-5.0 1329406705) ALK PHOS (test code = 73 U/L 34-122 5980460449) ALTv (test code = 23 U/L 5-35 1742-6) AST(SGOT) (test code = 25 U/L 13-40 5140966553) eGFR (test code = 120.0 mL/min/1.73m2 2264508218) RENZO (test code = RENZO) Association of [...] tests). Lab Interpretation Abnormal (test code = 90858-3) [facility] Test Item Value Reference Range Interpretation Comments MAGNESIUM (test code = 1935920331) 2.0 mg/dL 1.7-2.4 Lab Interpretation (test code = Normal 54536-0) [facility] 05:03:27 Test Item Value Reference Range Interpretation Comments LIPASE (test code = 7400534524) 109 U/L 0-220 Lab Interpretation (test code = Normal 38323-1) [facility] 05:03:27 Test Item Value Reference Range Interpretation Comments LIPASE (test code = 9899300214) 109 U/L 0-220 Lab Interpretation (test code = Normal 76136-6) [facility]/PELVIS W/[id number] 02:12:15Hx stone disease [facility] ([facility]Name: LAUREN BETH : 1985 Sex: FEXAM: CT [...] Velasquez 03/03/2023 2:08Dictated By: ALVINA VELASQUEZADate: 03/03/2023 02:11[facility] CHEM [id number] 01:29:00 Test Item Value Reference Range Interpretation [...] code = CO2) 19.0 mmol/l 24.0-29.0 L [facility] URINALYSIS WITHOUT [id number] 01:22:00 Test Item Value Reference Range Interpretation Comments Color (test code = Yellow Lt. Yellow A UCOLR) Clarity (test code = Slightly Cloudy UCLAR) Glucose (test code = Negative Negative N UGLUC) Bilirubin (test code Negative Negative N = UBILI) Ketones (test code = Negative Negative N UKET) Specific [place] >=1.030 1.005-1.030 A (test code = [...] N (test code = ULEUK) [facility] CBC WITH AUTO [id number] 01:20:00 Test Item Value Reference Range Interpretation [...] code = IG%) 0.5 % 0.0-0.4 H [id number] 14:39:00 Test Item Value Reference Range Interpretation Comments SURGICAL (test code = SR) RUN DATE: 01/23/23 [facility] PAGE 1 RUN TIME: 9239 Specimen Inquiry RUN USER: INTERFACE FLASH ENT: LAUREN BETH LOC: LALIT U #: [id number] AGE/SX: 37/F ROOM: AMANDA RE01/21/23REG DR: Lion Maxwell MD : [birth year] BED: 1 DIS: 01/23/23 STATUS: DIS IN TLOC: SPEC #: 23:PMC:[id number] RECD: 01/22/23-1018 STATUS: KWAME RETeri #: [id number] MELISSA: 01/21/23-[address]: Lion Maxwell MD ENTERED: 01/22/23-1022 SP TYPE: SURGICAL OTHR DR: Self Referred Maco Lewis MD, Stevenson C MDORDERED: 42414, ANATOMIC SPEC, SPECIMEN TRACK COPIES TO: Self Referred Maco Lewis MD [address] [facility] [address] [place], [place] [id number] [place] [address] [facility] [address] [place], [place] [id number] Kory Erwin MD [address] [address] PROCEDURES: 49125 (01/22/23) SPECIMEN TRACK (01/22/23) TISSUES: A. PELVIS [...] tissue processing and slide preparation performed at [email or web address] , [place] [address] CONTINUED ON NEXT PAGE RUN DATE: 01/23/23 [facility] PAGE 2 RUN TIME: 1439 Specimen Inquiry RUN USER: INTERFACE SPEC #: 23:[facility]:[id number] PATIENT: DIEUDONNE BETHDAVIDE Merritt #[id number] (Continued) ------- MICROSCOPIC DESCRIPTION Microscopic examination is performed and the findings are incorporated into the finaldiagnosis. Please see diagnosis for findings. ----- Signed SIGNATURE ON FILE NarcisaVidhi 01/23/23 1439 END OF REPORT CBC W/AUTO [id number] 07:07:00 Test Item Value Reference Range Interpretation [...] NT WITH AUTO DIFFERENTI AL. BASIC METABOLIC [id number] 04:40:00 Test Item Value Reference Range Interpretation [...] L = CA) - CT ABD PELVIS W/[id number] 13:04:00 [facility] 1985 Sex: F Name: LAUREN BETH [facility] : 1985 Age/S: 37 / F [address] [place] Unit #: [id number]: Aicha Julián [address] Phys: Jessica Arias Acct: [id number] Dis Date: Status: REG ER PHONE #: [phone] Exam Date: 01/20/20237 FAX #: Reason: RLQ pain EXAMS: CPT: [id number] CT ABD PELVIS W/CONT [address] CT abdomen and pelvis with contrast 01/20/2023 [...] surgery. Bones/soft tissues: Chronic appearing degenerative changes inthe skeleton. IMPRESSION: Appendicitis. Findings were discussed with Dr. Haque on 01/20/2023 at 1300. at 1304 Reported and signed by: Bobby Flores M.D. PAGE 1 Signed Report (CONTINUED) Name: [facility] [place] : 1985 Age/S: 37 / F [address] [facility] Unit #: [id number] Loc: [place] [address] Phys: Jessica Arias Acct: [id number] Dis Date: Status: REG ER PHONE #: [phone] Exam Date: 01/20/2023 1243 FAX #: Reason: RLQ pain EXAMS: CPT: [id number] CT ABD PELVIS W/CONT 54506 (Continued) CC: Maco Lewis MD; Jeison Haque DO; Jessica MUNOZ Technologist:Dulce Kate, RT(R) CTDI: DLP: Trnscb Date/Time: 01/20/2023 (1304) [email or web address] Orig Print D/T: S: 01/20/2023 (0021) PAGE 2 Signed ReportCOMPREHENSIVE METABOLIC [id number] 12:28:00 Test Item Value Reference Range Interpretation [...] TOTAL (test code = ALKP) HCG SERUM [id number] 12:23:00 Test Item Value Reference Range Interpretation Comments HCG SERUM QUAL (test SERUM NEGATIVE SCREEN NEGATIVE code = HCGQL) UA RFLX MICR CULT IF [id number] 11:58:00 Test Item Value Reference Range Interpretation [...] DIFF/SCN CRITERIA = MDIFF) COMP. METABOLIC PANEL (66389)2022-12-16 23:24:15 Test Item Value Reference Range Interpretation Comments NA (test code = 140 mmol/L 135-145 2623636669) K (test code = 4.6 mmol/L 3.5-5.0 0611593961) CL (test code = 108 mmol/L 98-108 9254330104) CO2 TOTAL (test code = 18 mmol/L 23-31 L 8206174746) AGAP (test code = 14 2-16 5068161736) BUN (test code = 9 mg/dL 7-23 2430450397) GLUCOSE (test code = 83 mg/dL 70-110 7143882653) CREATININE (test code = 0.55 mg/dL 0.50-1.04 6409432087) TOTAL BILI (test code = 1.0 mg/dL 0.1-1.4 6254718533) CALCIUM (test code = 9.3 mg/dL 8.6-10.6 6654330901) T PROTEIN (test code = 8.2 g/dL 6.3-8.2 0754959205) ALBUMIN (test code = 4.8 g/dL 3.5-5.0 0968318642) ALK PHOS (test code = 89 U/L 34-122 3162356312) ALTv (test code = 21 U/L 5-35 2-6) AST(SGOT) (test code = 34 U/L 13-40 9319481806) eGFR (test code = 125.1 mL/min/1.73m2 3719134046) RENZO (test code = RENZO) Association of [...] tests). Lab Interpretation Abnormal (test code = 75518-3) [facility], [id number] 23:22:04 Test Item Value Reference Range Interpretation Comments PREG SERUM (test code Negative = 9008910145) RENZO (test code = RENZO) Less than 10 IU/L. ?If low titer or ectopic is suspected, resubmit specimen in 48-72 hours. [facility]CB WITH [id number] 22:51:12 Test Item Value Reference Range Interpretation Comments WBC (test code = 12.44 See_Comment H [Automated 1019-2) message] The sy stem which generated this result transmitted reference range : 4.30 - 11.10 10*3/?L. The reference range was not used to interpret this result as normal/abnormal . RBC (test code = 4.69 See_Comment [Automated 977-8) message] The sy stem which generated this [...] RDW-SD (test code = 43.8 fL 39.0-49.9 20306-1) RDW-CV (test code = 13.9 % 12.0-15.5 788-0) PLT (test code = 316 See_Comment [Automated 787-3) message] The sy stem which generated this result transmitted reference range : 166 - 358 10*3/ ?L. The reference r bruce was not used to interpret this result as normal/abnormal . MPV (test code = 8.9 fL 9.5-12.9 L 52831-8) NRBC/100 WBC (test 0.0 See_Comment [Automat ed code = 6540292106) message] The system which generated this result transmitted reference range : 0.0 - 10.0 /100 WBCs. The refer ence range was not u sed to interpret th is result as normal/abnormal . NRBC x10^3 (test code See_Comment [Auto mated = 9681432673) message] The s ystem which generated this result transmitted reference range : 10*3/?L. The reference range was not used to interpret this result as normal/abnormal . GRAN MAT (NEUT) % 75.8 % (test code = 770-8) IMM GRAN % (test code 0.70 % = 3278308970) LYMPH % (test code = 16.5 % 736-9) MONO % (test code = 5.1 % 5905-5) EOS % (test code = 1.6 % 713-8) BASO % (test code = 0.3 % 706-2) GRAN MAT x10^3(ANC) 9.42 10*3/uL 1.88-7.09 H (test code = 3741897982) IMM GRAN x10^3 (test 0.09 10*3/uL 0.00-0.06 H code = 9149481174) LYMPH x10^3 (test code 2.05 10*3/uL 1.32-3.29 = 731-0) MONO x10^3 (test code 0.64 10*3/uL 0.33-0.92 = 742-7) EOS x10^3 (test code = 0.20 10*3/uL 0.03-0.39 711-2) BASO x10^3 (test code 0.04 10*3/uL 0.01-0.07 = 704-7) Lab Interpretation Abnormal (test code = 48216-9) [facility] [id number] 04:40:00 Test Item Value Reference Range Interpretation Comments POCT PREG (test code = 1605) Negative On board controls acceptable with Yes C Line (test code = 3574) POCT PREG LOT # (test code = 3575) [id number] POCT PREG TEST DATE (test 02/06/2024 code = 3576) Lab Interpretation (test code = Normal 28316-1) [facility]. METABOLIC PANEL (32002)2022-10-26 04:29:54 Test Item Value Reference Range Interpretation Comments NA (test code = 138 mmol/L 135-145 8299172808) K (test code = 4.0 mmol/L 3.5-5.0 4377739322) CL (test code = 110 mmol/L 98-108 H 7870834826) CO2 TOTAL (test code = 19 mmol/L 23-31 L 6264160185) AGAP (test code = 9 2-16 9852384471) BUN (test code = 13 mg/dL 7-23 7377740501) GLUCOSE (test code = 155 mg/dL 70-110 H 4077785961) CREATININE (test code = 0.84 mg/dL 0.50-1.04 0660088492) TOTAL BILI (test code = 0.3 mg/dL 0.1-1.5 7950197906) CALCIUM (test code = 8.7 mg/dL 8.6-10.6 9988964472) T PROTEIN (test code = 6.6 g/dL 6.3-8.2 9853620381) ALBUMIN (test code = 4.1 g/dL 3.5-5.0 7768473957) ALK PHOS (test code = 79 U/L 34-122 5096005446) ALTv (test code = 24 U/L 5-35 1742-6) AST(SGOT) (test code = 24 U/L 13-40 4867643611) eGFR (test code = 76.7 mL/min/1.73m2 9074544336) RENZO (test code = RENZO) Association of [...] tests). Lab Interpretation Abnormal (test code = 63574-5) [facility]23-[facility] 04:29:14 Test Item Value Reference Range Interpretation Comments LIPASE (test code = 3104975544) 96 U/L 0-220 Lab Interpretation (test code = Normal 06547-9) [facility] WITH [id number] 04:16:10 Test Item Value Reference Range Interpretation Comments WBC (test code = 10.69 See_Comment [Automated 8083-2) message] The sy stem which generated this result transmitted reference range : 4.30 - 11.10 10*3/?L. The reference range was not used to interpret this result as normal/abnormal . RBC (test code = 4.25 See_Comment [Automated 736-8) message] The sy stem which generated this [...] RDW-SD (test code = 41.8 fL 39.0-49.9 17416-9) RDW-CV (test code = 13.0 % 12.0-15.5 788-0) PLT (test code = 305 See_Comment [Automated 777-3) message] The sy stem which generated this result transmitted reference range : 166 - 358 10*3/ ?L. The reference r bruce was not used to interpret this result as normal/abnormal . MPV (test code = 9.1 fL 9.5-12.9 L 88629-6) NRBC/100 WBC (test 0.0 See_Comment [Automat ed code = 5654800556) message] The system which generated this result transmitted reference range : 0.0 - 10.0 /100 WBCs. The refer ence range was not u sed to interpret th is result as normal/abnormal . NRBC x10^3 (test code See_Comment [Auto mated = 2148009181) message] The s ystem which generated this result transmitted reference range : 10*3/?L. The reference range was not used to interpret this result as normal/abnormal . GRAN MAT (NEUT) % 55.4 % (test code = 770-8) IMM GRAN % (test code 0.80 % = 9094241436) LYMPH % (test code = 33.2 % 736-9) MONO % (test code = 4.2 % 5905-5) EOS % (test code = 5.8 % 713-8) BASO % (test code = 0.6 % 706-2) GRAN MAT x10^3(ANC) 5.92 10*3/uL 1.88-7.09 (test code = 9038174801) IMM GRAN x10^3 (test 0.09 10*3/uL 0.00-0.06 H code = 8467047302) LYMPH x10^3 (test code 3.55 10*3/uL 1.32-3.29 H = 731-0) MONO x10^3 (test code 0.45 10*3/uL 0.33-0.92 = 742-7) EOS x10^3 (test code = 0.62 10*3/uL 0.03-0.39 H 711-2) BASO x10^3 (test code 0.06 10*3/uL 0.01-0.07 = 704-7) Lab Interpretation Abnormal (test code = 37556-0) [facility]2022-06-13 23:43:00 Test Item Value Reference Range Interpretation Comments POCT SARS-COV-2 ANTIGEN (test code = Positive Not Detected A 53145-8) On board controls acceptable with C Yes Line (test code = 3574) Lab Interpretation (test code = Abnormal 49574-2) [facility]- XR SHOULDER 2 + V [id number] 16:42:00 [facility] 1985 Sex: F Patient Name: LAUREN BETH Unit No: [id number] EXAMS: CPT CODE: [id number] XR SHOULDER 2 + V LT [address] Left shoulder 3 views COMMENT: There is no evidence for fracture or subluxation. No focal bony lesions are seen. at 1642 Reportedand signed by: Angelo Hardin MD CC: Truman Quintero MD Technologist: Jeannette Garcia RT.(R) TranscribedD/ (1641) t.Stefanie [facility] NAME: LAUREN BETH [address] [facility] PHYS: Truman Alfaro MD : 1985 AGE: 36 SEX: F [place], [place] [address] LOC: JOHNNIE PHONE #: [phone] EXAM DATE: 04/23/2022 STATUS: DEP ER FAX #: [phone] RAD #: D/C DT PAGE 1 Signed Report Patient Name: LAUREN BETH Unit No: [id number] EXAMS: CPT CODE: [id number] XR SHOULDER 2 + [place] LT [address] (Continued) Orig Print D/T: S: 04/23/2022 (1645) [facility] NAME: LAUREN BETH [address] [facility] PHYS: Truman Alfaro MD : 1985 AGE: 36 SEX:F [place], [place] [address] LOC: JOHNNIE PHONE #: [phone] EXAM DATE: 04/23/2022 STATUS: DEP ER FAX #: [phone] RAD #: D/C DT PAGE 2 Signed ReportCOMP. METABOLIC PANEL (15586)2022-02-19 14:56:05 Test Item Value Reference Range Interpretation Comments NA (test code = 137 mmol/L 135-145 4455604272) K (test code = 4.2 mmol/L 3.5-5 4416237863) CL (test code = 108 mmol/L 98-108 9931027236) CO2 TOTAL (test code = 19 mmol/L 23-31 L 8229689207) AGAP (test code = 2-16 5291333611) BUN (test code = 14 mg/dL 7-23 7502731955) GLUCOSE (test code = 133 mg/dL 70-110 H 3162292479) CREATININE (test code = 0.56 mg/dL 0.5-1.04 1463968610) TOTAL BILI (test code = 0.4 mg/dL 0.1-1.5 1639104864) CALCIUM (test code = 8.9 mg/dL 8.6-10.6 9064951393) T PROTEIN (test code = 6.5 g/dL 6.3-8.2 1196597086) ALBUMIN (test code = 4.0 g/dL 3.5-5 7261942650) ALK PHOS (test code = 84 U/L 34-122 3282533715) ALTv (test code = 23 U/L 5-35 1742-6) AST(SGOT) (test code = 24 U/L 13-40 5136328113) eGFR (test code = mL/min/1.73m2 6273753830) RENZO (test code = RENZO) Association of [...] tests). Lab Interpretation Abnormal (test code = 12099-1) [facility]55[facility]44 Test Item Value Reference Range Interpretation Comments LIPASE (test code = 8017866232) 81 U/L 0-220 Lab Interpretation (test code = Normal 26529-5) [facility] WITH [id number] 14:36:26 Test Item Value Reference Range Interpretation Comments WBC (test code = See_Comment [Automated 1490-2) message] The sy stem which generated this [...] RDW-SD (test code = 43.9 fL 39-49.9 30173-8) RDW-CV (test code = 13.7 % 12-15.5 788-0) PLT (test code = See_Comment [Automated 777-3) message] The sy stem which generated this result transmitted reference range : 166 - 358 10*3/ ?L. The reference r bruce was not used to interpret this result as normal/abnormal . MPV (test code = 8.5 fL 9.5-12.9 L 05916-4) NRBC/100 WBC (test See_Comment [Automat ed code = 9027607754) message] The system which generated this result transmitted reference range : 0.0 - 10.0 /100 WBCs. The refer ence range was not u sed to interpret th is result as normal/abnormal . NRBC x10^3 (test code See_Comment [Auto mated = 8194040219) message] The s ystem which generated this result transmitted reference range : 10*3/?L. The reference range was not used to interpret this result as normal/abnormal . GRAN MAT (NEUT) % 58.7 % (test code = 770-8) IMM GRAN % (test code 1.10 % = 3526362395) LYMPH % (test code = 31.6 % 736-9) MONO % (test code = 6.8 % 5905-5) EOS % (test code = 1.4 % 713-8) BASO % (test code = 0.4 % 706-2) GRAN MAT x10^3(ANC) 3.30 10*3/uL 1.88-7.09 (test code = 6090468074) IMM GRAN x10^3 (test 0.06 10*3/uL 0-0.06 code = 6590756523) LYMPH x10^3 (test code 1.77 10*3/uL 1.32-3.29 = 731-0) MONO x10^3 (test code 0.38 10*3/uL 0.33-0.92 = 742-7) EOS x10^3 (test code = 0.08 10*3/uL 0.03-0.39 711-2) BASO x10^3 (test code 0.01-0.07 = 704-7) Lab Interpretation Abnormal (test code = 17116-0) [facility] [id number] 22:58:14 Test Item Value Reference Range Interpretation Comments POCT Molecular FluA (test code = Negative Negative 51189-3) POCT Molecular FluB (test code = Negative Negative 18193-6) Lab Interpretation (test code = Normal 47363-8) [facility] PAN[facility] (LIVER)2021-10-16 13:57:00 Test [...] (test code = 0.2 mg/dl 0.0-1.1 IBIL) [id number] 13:57:00 Test Item Value Reference Range Interpretation Comments Lipase (test code = LIPA) 114 U/L 73-393 [facility], [id number] 13:57:00 Test Item Value Reference Range Interpretation Comments Amylase (test code = AMYL) 51 U/L 25-115 [facility] CHEM [id number] 22:45:00 Test Item Value Reference Range Interpretation [...] code = CO2) 22.1 mmol/l 24.0-29.0 L [facility] CBC WITH AUTO [id number] 22:43:00 Test Item Value Reference Range Interpretation [...] (test code = IG%) 0.2 % 0.0-0.4 STLMLBASIC METABOLIC [id number] 13:03:00 Test Item Value Reference Range Interpretation [...] code = CA) 9.0 MG/DL 8.5-10.1 N HEPATIC FUNCTION [id number] 13:03:00 Test Item Value Reference Range Interpretation [...] 96 Unit/L 45-117 N code = ALKP) [id number] 13:03:00 Test Item Value Reference Range Interpretation Comments LIPASE (test code = LIP) 83 Unit/L 114-286 L UA RFLX MICR CULT IF [id number] 12:44:00 Test Item Value Reference Range Interpretation [...] OF URINE: CLEAN CATCH- CT ABD PELVIS W/[id number] 12:27:00 [facility] 1985 Sex: F Name: LAUREN BETH [facility] : 1985 Age/S: 36 / F [address] [place] Unit #: [id number]: Julián Holcomb [address] Phys: Marco Hilton NP Acct: [id number] Dis Date: Status: REG ER PHONE #: [phone] Exam Date: 08/07/20213 FAX #: Reason: LLQ ABD PAIN EXAMS: CPT: [id number] CT ABD PELVIS W/CONT 14093 EXAM: CT ABDOMEN AND PELVIS WITH CONTRAST. [...] 1 Signed Report (CONTINUED) Name: LAUREN BETH [facility] : 1985 Age/S: 36 / F [address] [facility] [place] Unit #: [id number] Loc: [place] [address] Phys: Marco Hilton NP Acct: [id number] Dis Date: Status: REG ER PHONE #: [phone] Exam Date: 08/07/20213 FAX #: Reason: LLQ ABD PAIN EXAMS: CPT: [id number] CT ABD PELVIS W/CONT 07574 &lt ;Continued> at 1227 Reported and signed by: Alma Cartwright M.D. CC: Olga Clements DO; Marco Hilton NP Technologist:RT Danyelle(R) CTDI: DLP: Trnscb Date/Time: 08/07/2021 (1227) VereniceMD16 Orig Print D/T: S: 08/07/2021 (3926) PAGE 2 Signed ReportCBC W/AUTO [id number] 12:23:00 Test Item Value Reference Range Interpretation [...] DIFF/SCN CRITERIA = MDIFF) CORONAVIRUS 2019 (IN [place])(3HR)2021-03-24 17:04:00 Test Item Value Reference Range Interpretation [...] contact the [facility] at [phone]. [id number] 12:37:00 Test Item Value Reference Range Interpretation [...] 0.5-1.3 code = CREA) EGFR if >60 [place] (test code mL/min/1.73m\\ = EGFRAA) S\\2 EGFR if Non- >60 Estimate d Glomerular [place] (test code mL/min/1.73m\\ Filtrat ion Rate (eGFR) [...] of c hronic kidney failure. STLMLSTAT LAB [id number] 12:11:00 Test Item Value Reference Range Interpretation [...] after the clini felipa event. STLMLPT AND [id number] 12:09:00 Test Item Value Reference Range Interpretation Comments Protime (test code 9.5 seconds 9.5-12.1 = PT) INR (test code = 0.9 0.9-1.1 INR results are intended INR) ONLY to monitor Oral Anticoagulant t herapy in stablized patie nts. The INR Therapeutic Range is 2.0 - 3.0 Patie nts with a mechanical he art, the INR Range is 2. 5 - 3.5 [id number] 12:09:00 Test Item Value Reference Range Interpretation Comments aPTT (test code = PTT) 22.3 seconds 23.9-30.7 L STLMLSTAT LAB CBC WITH AUTO [id number] 11:57:00 Test Item Value Reference Range Interpretation [...] 0.3 % 0.0-0.4 STLMLXR CHEST AP/PA 1 [id number] 11:33:32 [facility] ([facility])Name: LAUREN BETH : 1985 Sex: FProcedure: XR CHEST AP/PA 1 VIEWOrder Date: 03/24/2021 10:57 AMOrdering Provider: REHAN Farrellinical Indication: [id number]: DyspneaComparison: September 30, 2018Findings:Cardiac size is normal.Pulmonary vasculature is normal.Mediastinal contour is normal.Aortic contour is normal.No acute infiltrates or effusions.There is no mass or pneumothorax.There is no evidence of active tuberculosis.There isno acute skeletal abnormality.Impression: Negative AP view of the chest.This final report was electronically signed by Dr Farzad Dewitt MD :28 AMDictated By: FARZAD DEWITTDate: :28STLMLCULTURE, [id number] 08:00:00Specimen: Urine SpecimensCollected: 03/10/2021 11:50 Status: Final [...] code = NEGATIVE NEGATIVE N UKET) Specific [place] 1.015 1.005-1.030 A (test code = [...] SEEN A Epithelial (test code = NSE) [facility] CBC WITH AUTO [id number] 12:10:00 Test Item Value Reference Range Interpretation [...] code = IG%) 0.8 % 0.0-0.4 H [facility] CHEM [id number] 12:08:00 Test Item Value Reference Range Interpretation [...] = CREA) 0.5 mg/dl 0.6-1.3 L STLMLCULTURE, [id number] 08:26:00Specimen: Urine SpecimensCollected: 02/23/2021 08:35 Status: Final Last Updated: 02/24/2021 08:26 CULTURE (Final) (Final) Many Mixed Body Gabriela Isolated No Pathogens IsolatedSTLMLCT ABDOMEN/PELVIS W/[id number] 11:40:43 [facility] ([facility]Name: LAUREN BETH : 1985 Sex: FProcedure: CT ABDOMEN/PELVIS W/CONTRASTOrder date: 02/23/2021 10:08 AMOrdering Provider: REHAN Farrellinical Indication: [id number]: Right lower quadrant painComparison: November 14, 2020Technique: [...] MD 111:35 AMDictated By: WILEY VELÁZQUEZDate: 02/23/2021 11:[id number] 10:44:00 Test Item Value Reference Range Interpretation Comments Lipase (test code = LIPA) 86 U/L 73-393 STLMLURINALYSIS WITH [id number] 08:58:00 Test Item Value Reference Range Interpretation Comments Color (test code = Light-Yellow UCOLR) Clarity (test code = Clear UCLAR) Glucose (test code = NEGATIVE NEGATIVE N UGLUC) Bilirubin (test code NEGATIVE NEGATIVE N = UBILI) Ketones (test code = NEGATIVE NEGATIVE N UKET) Specific [place] 1.020 1.005-1.030 A (test code = [...] = SQEP) [facility] LAB CBC WITH AUTO [id number] 08:52:00 Test Item Value Reference Range Interpretation [...] (test code = IG%) 0.3 % 0.0-0.4 [facility] CHEM [id number] 08:52:00 Test Item Value Reference Range Interpretation [...] (test code = CREA) 0.6 mg/dl 0.6-1.3 [facility] LAB CBC WITH AUTO [id number] 02:37:00 Test Item Value Reference Range Interpretation [...] A value of 55 was entered by [id number] on 01/10/2021 02:3 7 Lymphocytes (test 43 % 13-42 H No previou s value code = LYMPH) was reported. A value of 43 was entered by [id number] on 01/10/2021 02:3 7 Monocytes (test 1 % 4-14 L No previous value code = MONOS) was reported. A value of 1 was entered by [id number] on 01/10/2021 02:3 7 Basophils (test 1 % 0-1 No previous value code = BASO) was reported. A value of 1 was entered by [id number] on 01/10/2021 02:3 7 Normal Morphology Normal WBC RBC Normal RBC \\T\\ N No pre vious value (test code = NRCM) and Platelet WBC was repor michael. A Morphology Morphology,Normal value of N ormal WBC RBC and WBC RBC and Platelet Platelet Morphology Morphology was entered by [id number] on 01/10/2021 02:3 7 STLMLAMYLASE, [id number] 02:14:00 Test Item Value Reference Range Interpretation Comments Amylase (test code = AMYL) 46 U/L 25-115 [id number] 02:14:00 Test Item Value Reference Range Interpretation Comments Lipase (test code = LIPA) 115 U/L 73-393 STLMLURINALYSIS WITH [id number] 02:07:00 Test Item Value Reference Range Interpretation Comments Color (test code = Light-Yellow UCOLR) Clarity (test code = Cloudy UCLAR) Glucose (test code = NEGATIVE NEGATIVE N UGLUC) Bilirubin (test code NEGATIVE NEGATIVE N = UBILI) Ketones (test code = NEGATIVE NEGATIVE N UKET) Specific [place] 1.025 1.005-1.030 A (test code = [...] (test code = NSE) [facility] LAB CHEM [id number] 01:50:00 Test Item Value Reference Range Interpretation [...] = CREA) 0.6 mg/dl 0.6-1.3 [facility] ABD PELVIS W/[id number] 03:46:00 [facility]EName: BETHDIEUDONNE IslasDAVIDE Merritt : 1985 Sex: F FAX: Annemarie Tesfaye [phone] [place]: St: REG Name: LAUREN BETH [facility] : 1985 Age/S: 35/F [address] Unit: [id number] Loc: [place] [address] Phys: Annemarie Tesfaye [employer] Acct: [id number] Dis Date: Status: REG ER PHONE #: [phone] Exam Date: 12/13/2020 0325 FAX #: [phone] Reason: DIFFUSE ABD PAIN WORSE RLQ, HX APPY, ROSE EXAMS: CPT CODE: [id number] CT ABD PELVIS W/[id number] AFTER HOURS SERVICE ON: 12/13/2020 3:44 AM [...] by Neo Huber MD on 12/13/2020 at 6536 Reported and signed by: Neo Huber MD PAGE 1 Signed Report (CONTINUED) FAX: Annemarie Tesfaye [phone] [place]: St: REG---- Name: DIEUDONNE BETHDAVIDE Merritt [facility] : 1985 Age/S: 35/F [address] Unit: [id number] Loc: [place] [address] Phys: Annemarie Tesfaye [employer] Acct: [id number] Dis Date: Status: REG ER PHONE #: [phone] Exam Date: 12/13/20205 FAX #: [phone] Reason: DIFFUSE ABD PAIN WORSE RLQ, HX APPY, ROSE EXAMS: CPT CODE: [id number] CT ABD PELVIS W/CONT 62938 <Continued> CC: Annemarie Tesfaye [employer] Technologist: PAMELA KRISHNAMURTHY; Jessi Guillory; JAIRO SANCHEZ JR Trnscrd Dt/Tm: 12/13/2020 (0346) VereniceMA50 Orig Print D/T: S: 12/13/2020 (6149 PAGE 2 Signed ReportCOMPREHENSIVE METABOLIC [id number] 03:32:00 Test Item Value Reference Range Interpretation [...] U/L 38-126 N (test code = ALKP) [id number] 03:32:00 Test Item Value Reference Range Interpretation Comments LIPASE (test code = LIP) 82 U/L 23-300 N BEDSIDE [id number] 03:24:00 Test Item Value Reference Range Interpretation Comments BEDSIDE CREATININE (test code = 0.60 mg/dL 0.51-1.19 N CREATBED) CBC W/AUTO [id number] 03:14:00 Test Item Value Reference Range Interpretation [...] 0.0-0.1 N UA RFLX MICR CULT IF [id number] 02:59:00 Test Item Value Reference Range Interpretation [...] OF URINE: VOIDEDSTAT LAB CBC WITH AUTO [id number] 15:12:00 Test Item Value Reference Range Interpretation [...] entered by [id number] on 12/12/2020 15:12 [facility] LAB CHEM [id number] 14:08:00 Test Item Value Reference Range Interpretation [...] = CREA) 0.5 mg/dl 0.6-1.3 L [facility] LAB URINALYSIS WITHOUT [id number] 12:08:00 Test Item Value Reference Range Interpretation Comments Color (test code = Light-Yellow UCOLR) Clarity (test code = Cloudy UCLAR) Glucose (test code = NEGATIVE NEGATIVE N UGLUC) Bilirubin (test code NEGATIVE NEGATIVE N = UBILI) Ketones (test code = NEGATIVE NEGATIVE N UKET) Specific [place] 1.015 1.005-1.030 A (test code = USPGR) Blood (test code = NEGATIVE NEGATIVE N UBLD) PH (test code = UPH) 7.0 4.5-8.0 A Protein (test code = NEGATIVE NEGATIVE N UPROT) Urobilinogen (test 0.2 See_Comment N [Automat ed message] code = U UROB) The system Correlor generated this result transmit michael reference range : 0.2. The refere nce range was not u sed to interpret th is result as normal/abnormal . Nitrite (test code = NEGATIVE NEGATIVE N UNITR) Leukocyte Esterase NEGATIVE NEGATIVE N (test code = ULEUK) [facility]edarHEPATIC FUNCTION PANEL (LIVER)2020-11-21 08:43:00 Test Item Value [...] (test code = 0.4 mg/dl 0.0-1.1 IBIL) [facility]URINALYSIS WITH [id number] 08:31:00 Test Item Value Reference Range Interpretation Comments Color (test code = Light-Yellow UCOLR) Clarity (test code = Clear UCLAR) Glucose (test code = NEGATIVE NEGATIVE N UGLUC) Bilirubin (test code NEGATIVE NEGATIVE N = UBILI) Ketones (test code = NEGATIVE NEGATIVE N UKET) Specific [place] 1.020 1.005-1.030 A (test code = USPGR) Blood (test code = NEGATIVE NEGATIVE N UBLD) PH (test code = UPH) 6.5 4.5-8.0 A Protein (test code = NEGATIVE NEGATIVE N UPROT) Urobilinogen (test 0.2 See_Comment N [Automat ed message] code = U UROB) The system Correlor generated this result transmit michael reference range [...] TNTC 0-10 A (test code = SQEP) [facility] LAB CHEM [id number] 08:27:00 Test Item Value Reference Range Interpretation [...] = CREA) 0.5 mg/dl 0.6-1.3 L [facility] CBC WITH AUTO [id number] 08:26:00 Test Item Value Reference Range Interpretation [...] (test code = IG%) 0.4 % 0.0-0.4 [facility]kinXR [facility]BD[facility] 2 VIEWS FLAT / [id number] 08:18:50[facility] ([facility]/)Name: LAUREN BETH : 1985 Sex: FProcedure: XR ABDOMEN 2 VIEWS FLAT / UPRIGHTOrder Date: 11/21/2020 7:43 AMOrdering Provider: REHAN Farrellinical Indication: [id number]: Abdominal painComparison: Nov 14 2020Findings:Bowel gas pattern is non-obstructive. No pneumoperitoneum.There is moderate volume stool burden.Surgical clips in the right upper quadrant of the abdomen.Impression:Nonobstructive bowel gas pattern.This final reportwas electronically signed by Dr Silver Benitez MD :13 AMDictated By: GLORY BENITEZKDate: 11/21/2020 08:13[facility]CT [facility]/PELVIS W/O CONTRAST 2020-11-14 14:11:31 [facility] ([facility]/)Name: LAUREN BETH [place] : 1985 Sex: FProcedure: CT ABDOMEN/PELVIS W/O CONTRASTOrder Date: 11/14/2020 1:22 PMOrdering Provider: BILLY ACOSTA .Clinical Indication: [id number]: Right flank painComparison: Renal ultrasound November 08, [...] MD 12:05 PMDictated By: FARZAD DEWITTDate: 11/14/2020 14:05[facility] , [id number] 13:31:00 Test Item Value Reference Range Interpretation Comments (Urine) (test code = Negative PREGU) ONLY AVAILABLE 8A-12[facility] LAB CHEM [id number] 11:09:00 Test Item Value Reference Range Interpretation [...] = CREA) 0.5 mg/dl 0.6-1.3 L [facility] LAB URINALYSIS WITHOUT [id number] 11:08:00 Test Item Value Reference Range Interpretation Comments Color (test code = Yellow Lt. Yellow A UCOLR) Clarity (test code = Clear UCLAR) Glucose (test code = Negative Negative N UGLUC) Bilirubin (test code Negative Negative N = UBILI) Ketones (test code = Negative Negative N UKET) Specific [place] 1.025 1.005-1.030 A (test code = [...] Negative Negative N (test code = ULEUK) [facility] LAB CBC WITH AUTO [id number] 11:05:00 Test Item Value Reference Range Interpretation [...] 0.4 % 0.0-0.4 [facility] CedarCULTURE, [id number] 08:43:00Specimen: Urine SpecimensCollected: 11/08/2020 09:59 Status: Final Last Updated: 11/09/2020 08:43 CULTURE (Final) (Final) Few Mixed Body Gabriela Isolated No Pathogens IsolatedThedaCare [facility] RENAL & BLADDER (KIDNEYS)2020-11-08 12:00:28[facility] ([facility])Name: LAUREN BETH : 1985 Sex: FProcedure: [...] AMDictated By: GLORY BENITEZKDate: 11/08/2020 11:54[facility]CHURINALYSIS WITH MICROSCOPIC 2020-11-08 10:58:00 Test Item Value Reference Range Interpretation Comments Color (test code = Yellow UCOLR) Clarity (test code = Clear UCLAR) Glucose (test code = NEGATIVE NEGATIVE N UGLUC) Bilirubin (test code = NEGATIVE NEGATIVE N UBILI) Ketones (test code = NEGATIVE NEGATIVE N UKET) Specific [place] (test 1.030 1.005-1.030 A code = USPGR) Blood (test code = NEGATIVE NEGATIVE N UBLD) PH (test code = UPH) 6.0 4.5-8.0 A Protein (test code = NEGATIVE NEGATIVE N UPROT) Urobilinogen (test code 0.2 See_Comment N [Au tomated message] = U UROB) The system Over 40 Females generated this result transmitted ref erence range: [...] 51-74 0-10 A (test code = SQEP) [facility]kinCULTURE, [id number] 08:13:00ER 17Specimen: Urine SpecimensCollected: 11/01/2020 01:10 Status: Final Last Updated: 11/02/2020 08:13 (1) ER 17 CULTURE (Final) (Final) Few Mixed Body Gabriela Isolated No Pathogens IsolatedGrant [facility] Center-LufkinXR ABD SERIES W/PA CXR 2020-11-01 03:48:37 [facility] ([facility]/[place])Name: LAUREN BETH : 1985 Sex: FPROCEDURE [...] MD on October13:48 AM CDT.Dictated By: FILIPPO RAOMSDate: 11/01/2020 03:48[facility]CHHEPATIC FUNCTION PANEL (LIVER)2020-11-01 02:14:00 Test Item Value [...] (test code = 0.1 mg/dl 0.0-1.1 IBIL) [address] LAB CHEM [id number] 01:57:00 Test Item Value Reference Range Interpretation [...] = CREA) 0.5 mg/dl 0.6-1.3 L ER [address] [place] [address]-LufkinURINALYSIS WITH [id number] 01:56:00 Test Item Value Reference Range Interpretation Comments Color (test code = Light-Yellow UCOLR) Clarity (test code = Clear UCLAR) Glucose (test code = 50 NEGATIVE A UGLUC) Bilirubin (test code NEGATIVE NEGATIVE N = UBILI) Ketones (test code = NEGATIVE NEGATIVE N UKET) Specific [place] 1.025 1.005-1.030 A (test code = USPGR) Blood (test code = NEGATIVE NEGATIVE N UBLD) PH (test code = UPH) 6.0 4.5-8.0 A Protein (test code = TRACE NEGATIVE A UPROT) Urobilinogen (test 0.2 See_Comment N [Automat ed message] code = U UROB) The system Correlor generated this result transmit michael reference range [...] 41-50 0-10 A (test code = SQEP) [address]-fkinSTAT LAB CBC WITH AUTO [id number] 01:55:00 Test Item Value Reference Range Interpretation [...] code = IG%) 0.4 % 0.0-0.4 [address] FUN[address] PANEL (LIVER)2020-10-05 01:26:00 Test Item [...] (test code = 0.1 mg/dl 0.0-1.1 IBIL) [address]LIPASE2021-04-07 01:26:00 Test Item Value Reference Range Interpretation Comments Lipase (test code = LIPA) 154 U/L 73-393 [address] CHEM [id number] 01:15:00 Test Item Value Reference Range Interpretation [...] = CREA) 0.6 mg/dl 0.6-1.[address] [place] [address] LAB , [id number] 01:14:00 Test Item Value Reference Range Interpretation Comments (Urine) (test code = Negative PREGU) er [address] [place] [address] LAB CBC WITH AUTO [id number] 01:13:00 Test Item Value Reference Range Interpretation [...] = IG%) 0.9 % 0.0-0.4 H er 10[facility] CenterLegldc-JludmsSSWDZQ5775-08-21 04:21:00 Test Item Value Reference Range Interpretation Comments Lipase (test code = LIPA) 146 U/L 73-393 [facility]edarHEPATIC FUNCTION PANEL (LIVER)2020-09-18 04:21:00 Test Item Value [...] mg/dl 0.0-1.1 IBIL) [facility] CedarAMYLASE, [id number] 04:21:00 Test Item Value Reference Range Interpretation Comments Amylase (test code = AMYL) 47 U/L 25-115 [facility]edarURINALYSIS WITH [id number] 03:06:00 Test Item Value Reference Range Interpretation Comments Color (test code = Light-Yellow UCOLR) Clarity (test code = Clear UCLAR) Glucose (test code = NEGATIVE NEGATIVE N UGLUC) Bilirubin (test code NEGATIVE NEGATIVE N = UBILI) Ketones (test code = TRACE NEGATIVE A UKET) Specific [place] 1.025 1.005-1.030 A (test code = [...] SEEN A Epithelial (test code = NSE) [facility] LAB CHEM [id number] 02:51:00 Test Item Value Reference Range Interpretation [...] (test code = CREA) 0.6 mg/dl 0.6-1.3 [facility] LAB CBC WITH AUTO [id number] 02:50:00 Test Item Value Reference Range Interpretation [...] 0.5 % 0.0-0.4 H [facility]XR ABDOMEN 1 VIEW (KUB)2020-09-12 01:51:21 [facility] ([facility])Name: LAUREN BETH : 1985 Sex: FPROCEDURE [...] CDT.Dictated By: CELESTINO ALLENDate: 09/12/2020 01:50[facility] STAT LAB CBC WITH AUTO [id number] 01:29:00 Test Item Value Reference Range Interpretation [...] code = IG%) 0.4 % 0.0-0.4 [facility] LAB CHEM [id number] 01:28:00 Test Item Value Reference Range Interpretation [...] (test code = CREA) 0.6 mg/dl 0.6-1.3 [facility]-fkinURINALYSIS WITH [id number] 03:04:00 Test Item Value Reference Range Interpretation Comments Color (test code = Yellow UCOLR) Clarity (test code = Clear UCLAR) Glucose (test code = 100 NEGATIVE A UGLUC) Bilirubin (test code = NEGATIVE NEGATIVE N UBILI) Ketones (test code = TRACE NEGATIVE A UKET) Specific [place] (test >=1.030 1.005-1.030 A code = USPGR) Blood (test code = NEGATIVE NEGATIVE N UBLD) PH (test code = UPH) 5.5 4.5-8.0 A Protein (test code = NEGATIVE NEGATIVE N UPROT) Urobilinogen (test code 0.2 See_Comment N [Au tomated message] = U UROB) The system Over 40 Females generated this result transmitted ref erence range: [...] code = 3+ None Seen,Trace A UBACT) [facility]-[id number] 03:01:00 Test Item Value Reference Range Interpretation [...] ( 4 - SerumAlbumin)] EGFR if >60 [place] (test code mL/min/1.73m\\ = EGFRAA) S\\2 EGFR if Non- >60 Estimate d Glomerular [place] (test code mL/min/1.73m\\ Filtrat ion Rate (eGFR) [...] and management of c hronic kidney failure. [facility] CenterQspqcb-[id number] 03:01:00 Test Item Value Reference Range Interpretation Comments Lipase (test code = LIPA) 145 U/L 73-393 [facility] LAB TEST, Serum Qualitative 2020-08-22 02:48:00 Test Item Value Reference Range Interpretation Comments (Serum) (test code = Negative PREGS) [facility] LAB CBC WITH AUTO [id number] 02:28:00 Test Item Value Reference Range Interpretation [...] % 0.0-0.4 H [facility] CenterkinHEPATIC FUNCTION PANEL (LIVER)2020-08-06 02:59:00 Test Item Value [...] code = 0.1 mg/dl 0.0-1.1 IBIL) ER [address] [place], [place] [address]Fdqwik-[id number] 02:59:00 Test Item Value Reference Range Interpretation Comments Lipase (test code = LIPA) 167 U/L 73-[address] [place] [address]-[place]kinURINALYSIS WITH [id number] 02:48:00 Test Item Value Reference Range Interpretation Comments Color (test code = UCOLR) Yellow Clarity (test code = UCLAR) Clear Glucose (test code = UGLUC) NEGATIVE NEGATIVE N Bilirubin (test code = UBILI) NEGATIVE NEGATIVE N Ketones (test code = UKET) NEGATIVE NEGATIVE N Specific [place] (test code = >=1.030 1.005-1.030 A [...] = UBACT) 4+ None Seen,Trace A ER [address] [place] [address]-[place] ABDOMEN/PELVIS W/O [id number] 02:34:52ER 16 R/O KIDNEY STONE [facility] ([place])Name: LAUREN BETH : [id number] Sex: FPROCEDURE INFORMATION:Exam: CT Abdomen And Pelvis [...] CDT.Dictated By: HOLLIS FERRERADate: 08/06/2020 02:34[facility] LAB CHEM 8 2020-08-06 02:29:00 Test [...] code = CREA) 0.4 mg/dl 0.6-1.[address] LAB CBC WITH AUTO [id number] 02:29:00 Test Item Value Reference Range Interpretation [...] = IG%) 0.7 % 0.0-0.4 H ER [address] [place], [place] [address]Imogsc-[id number] 09:31:00 Test Item Value Reference Range Interpretation Comments Lipase (test code = LIPA) 117 U/L 73-393 [facility]edarHEPAT[facility] FUNCTION PANEL (LIVER)2020-07-19 09:31:00 Test Item Value [...] (test code = 0.3 mg/dl 0.0-1.1 IBIL) [facility]XR [facility]BD[facility] 2 VIEWS FLAT / [id number] 09:22:50[facility] ([facility]/[place])Name: LAUREN BETH : [id number] Sex: FProcedure: XR ABDOMEN 2 VIEWS FLAT / UPRIGHTOrder Date: 07/19/2020 8:40 AMOrdering Provider: REHAN COTTON .Clinical Indication: [id number]: Abdominal painComparison: July 05, 2020Findings:Postoperative change consisting [...] AMDictated By: FARZAD DEWITTDate: 07/19/2020 09:17[facility] LAB CHEM [id number] 09:10:00 Test Item Value Reference Range Interpretation [...] = CREA) 0.5 mg/dl 0.6-1.3 L [facility] LAB CBC WITH AUTO [id number] 09:09:00 Test Item Value Reference Range Interpretation [...] = IG%) 0.7 % 0.0-0.4 H [facility] LAB URINALYSIS WITHOUT [id number] 09:08:00 Test Item Value Reference Range Interpretation Comments Color (test code = UCOLR) Yellow Lt. Yellow A Clarity (test code = UCLAR) Clear Glucose (test code = UGLUC) Negative Negative N Bilirubin (test code = UBILI) Negative Negative N Ketones (test code = UKET) Negative Negative N Specific [place] (test code = USPGR) >=1.030 1.005-1.030 A Blood (test code = UBLD) Negative Negative N PH (test code = UPH) 6.0 4.5-8.0 A Protein (test code = UPROT) Negative Negative N Urobilinogen (test code = U UROB) 0.2 >0.2 N Nitrite (test code = UNITR) Negative Negative N Leukocyte Esterase (test code = Negative Negative N ULEUK) [facility]edarCULTURE, [id number] 08:00:00Specimen: Urine SpecimensCollected: 07/05/2020 03:00 Status: Final Last Updated: 07/07/2020 08:00 CULTURE (Final) (Final) No Growth After 48 HoursMay[facility] Red CedarXR ABDOMEN 1 VIEW (KUB)2020-07-05 04:07:04 [facility] ([facility]/[place])Name: LAUREN BETH : [id number] Sex: FPROCEDURE INFORMATION:Exam: XR Abdomen, 1 ViewExam [...] 4:06 AM CDT.Dictated By: OSKAR CRANEte: 07/05/2020 04:06[facility] , [id number] 03:54:00 Test Item Value Reference Range Interpretation Comments (Urine) (test code = Negative PREGU) [facility] LAB CHEM [id number] 03:53:00 Test Item Value Reference Range Interpretation [...] = CREA) 0.5 mg/dl 0.6-1.3 L [facility] LAB CBC WITH AUTO [id number] 03:51:00 Test Item Value Reference Range Interpretation [...] 0.4 % 0.0-0.4 [facility] CenterkinURINALYSIS WITH [id number] 03:33:00 Test Item Value Reference Range Interpretation Comments Color (test code = UCOLR) Yellow Clarity (test code = UCLAR) Clear Glucose (test code = UGLUC) NEGATIVE NEGATIVE N Bilirubin (test code = UBILI) Small NEGATIVE A Ketones (test code = UKET) TRACE NEGATIVE A Specific [place] (test code = USPGR) 1.020 1.005-1.030 [...] code = UBACT) Trace None Seen,Trace N [facility]CT ABDOMEN/PELVIS W/[id number] 16:44:35 [facility] ([facility]/[place])Name: LAUREN BETH : [id number] Sex: FProcedure: CT ABDOMEN/PELVIS W/CONTRASTOrder date: 06/07/2020 3:47 PMOrdering Provider: REHAN Farrellinical Indication: [id number]: Left flank painComparison: 06/07/20Technique: Multiple axial helical [...] PMDictated By: WILEY VELÁZQUEZDate: 06/07/2020 16:38[facility]URINALYSIS WITH [id number] 15:22:00 Test Item Value Reference Range Interpretation Comments Color (test code = UCOLR) Yellow Clarity (test code = UCLAR) Clear Glucose (test code = UGLUC) NEGATIVE NEGATIVE N Bilirubin (test code = UBILI) NEGATIVE NEGATIVE N Ketones (test code = UKET) NEGATIVE NEGATIVE N Specific [place] (test code = USPGR) 1.020 1.005-1.030 [...] = UBACT) Trace None Seen,Trace N [facility] LAB CHEM [id number] 15:10:00 Test Item Value Reference Range Interpretation [...] = CREA) 0.4 mg/dl 0.6-1.3 L [facility] LAB CBC WITH AUTO [id number] 15:08:00 Test Item Value Reference Range Interpretation [...] % 0.0-0.4 H [facility] CenterkinAZ ABD/ PELVIS W/O CON (RENAL STONE)2020-06-07 14:56:05[facility] ([facility]/[place])Name: LAUREN BETH : [id number] Sex: FProcedure: CT ABD/ PELVIS W/O CON (RENAL STONE)Order date: 06/07/2020 2:18 PMOrdering Provider: REHAN Farrellinical Indication: [id number]: Left flank painComparison: 05/31/20TECHNIQUE: Using a helical [...] 06/07/20202:49PMDictated By: WILEY VELÁZQUEZDate: 06/07/2020 14:49[facility] ABDOMEN/PELVIS W/O [id number] 12:27:07NPO 4 hours. Do not withhold meds hyst [facility] ([facility]/[place])Name: LAUREN BETH : [id number] Sex: FProcedure: CT ABDOMEN/PELVIS W/O CONTRASTOrder Date: 05/31/2020 10:25 AMOrdering Provider: ME ANN MARIE MCBRIDEClinical Indication: [id number]: Pain radiating to right flankComparison: March 20, [...] MD 05/31/202012:20 PMDictated By: FARZAD DEWITT.Date: 05/31/2020 12:20MMCH[facility] MEDICAL [id number] 11:48:00 Test Item Value Reference Range Interpretation Comments Lipase (test code = LIPA) 116 U/L 73-393 [facility] LAB URINALYSIS WITHOUT [id number] 10:59:00 Test Item Value Reference Range Interpretation Comments Color (test code = UCOLR) Light yellow Lt. Yellow A Clarity (test code = UCLAR) Clear Glucose (test code = UGLUC) Negative Negative N Bilirubin (test code = UBILI) Negative Negative N Ketones (test code = UKET) Negative Negative N Specific [place] (test code = 1.025 1.005-1.030 A USPGR) Blood (test code = UBLD) Negative Negative N PH (test code = UPH) 6.0 4.5-8.0 A Protein (test code = UPROT) Negative Negative N Urobilinogen (test code = U 0.2 >0.2 N UROB) Nitrite (test code = UNITR) Negative Negative N Leukocyte Esterase (test code = Negative Negative N ULEUK) [facility] LAB CBC WITH AUTO [id number] 10:58:00 Test Item Value Reference Range Interpretation [...] = IG%) 0.5 % 0.0-0.4 H [facility] LAB CHEM [id number] 10:53:00 Test Item Value Reference Range Interpretation [...] code = CREA) 0.5 mg/dl 0.6-1.3 L [facility] ABDOMEN 1 VIEW (KUB)2020-04-25 21:02:16 [facility] ([facility]/[place])Name: LAUREN BETH : [id number] Sex: FPROCEDURE INFORMATION:Exam: XR Abdomen, 1 ViewExam [...] PM CDT. Dictated By: TEJAS RODRIGUEZ.Date: 04/25/2020 21:02[facility] NEW CHURCHURINALYSIS WITH [id number] 18:57:00 Test Item Value Reference Range Interpretation Comments Color (test code = UCOLR) Yellow Lt. Yellow A Clarity (test code = UCLAR) Clear Glucose (test code = UGLUC) Negative Negative N Bilirubin (test code = UBILI) Negative Negative N Ketones (test code = UKET) Negative Negative N Specific [place] (test code = 1.020 1.005-1.030 A [...] code = UBACT) 4+ None Seen,Trace A [facility] LAB CBC WITH AUTO [id number] 18:55:00 Test Item Value Reference Range Interpretation [...] of Platel et clumping was entered by [id number] on 04/25/2020 18:5 5 [facility] LAB CHEM [id number] 18:17:00 Test Item Value Reference Range Interpretation [...] code = CREA) 0.4 mg/dl 0.6-1.3 L [facility], ANAEROBE [id number] 15:20:00FIRST DRAW = 1 aerobic and 1 anerobic CultureSpecimen: BloodCollected: 03/20/2020 18:30 Status: Final Last Updated: 03/26/2020 15:19 (1) FIRST DRAW = 1 aerobic and 1 anerobic Culture CULTURE (Final) (Final) No [facility] [id number] 15:20:00FIRST DRAW = 1 aerobic and 1 anerobic CultureSpecimen: BloodCollected: 03/20/2020 18:30 Status: Final Last Updated: 03/26/2020 15:19 (1) FIRST DRAW = 1 aerobic and 1 anerobic Culture CULTURE (Final) (Final) No Growth After 5 Days[facility]alkinCT ABDOMEN/PELVIS W/[id number] 21:46:442 weeks s/p adhesolysis. Vomiting/pain/fever. Please do CT with PO and IV contrastProcedures: CT ABDOMEN/PELVIS W/CONTRASTExam Date: 03/20/2020 6:04 PMOrdering Physician: REHAN COTTONClinical Indication: [id number]: Abdominal painComparison: CT abdomen/pelvis, 02/25/20TECHNIQUE: Spiral multislice [...] Juárez MD03/20/2020 9:40 PMDictated By: ELMER PHAMDate:03/20/2020 21:40C OF [place] CHURCHHEPATIC FUNCTION PANEL (LIVER)2020-03-20 19:24:00 Test Item Value [...] (test code = 0.3 mg/dl 0.0-1.1 IBIL) [facility] CenterJsrjvq-[id number] 19:24:00 Test Item Value Reference Range Interpretation Comments Lipase (test code = LIPA) 69 U/L 73-393 L [facility] CedarMAGNESIUM2020-09-20 19:24:00 Test Item Value Reference Range Interpretation Comments Magnesium (test code = MG) 2.0 mg/dl 1.6-2.6 [facility] LAB CHEM [id number] 18:43:00 Test Item Value Reference Range Interpretation [...] = CREA) 0.5 mg/dl 0.6-1.3 L [facility] LAB LACTIC [id number] 18:42:00 Test Item Value Reference Range Interpretation Comments LACTATE (test code = 2.50 mmol/l 0.90-1.70 HH R&RB sy rene hassan rn LAC) @1842 [facility] LAB CBC WITH AUTO [id number] 18:41:00 Test Item Value Reference Range Interpretation [...] (test code = IG%) 0.4 % 0.0-0.4 [facility]-LufkinSP PERC PLMNT MIDLINE NO PORT > [...] secured to the skin in the usual fashion.Judo Instructor images were recorded and [facility] fordocumentation. The patient tolerated the procedure well and there were noimmediate complications.Impression:1. Successful upper extremity vascular access.This final report was electronically signed by Dr Farzad Dewitt MD 03/15/20201:14 PMDictated By: FARZAD DEWITT.Date: 03/15/2020 13:14[facility]CORONAVIRUS 2019 (IN HOUSE)2020-03-13 21:03:00 Test Item Value Reference Range Interpretation Comments FT (test code Negative Negative N The BioGX SARS -CoV-2 = COVID) (qualifier value) Reagents f or BD MAX System, the Bio Fire Covid-19, and t he Cepheid Covid-1 9 is for in vitro us e under FDA Emergency U se Authorization o nly. Indeterminate r esults recommend recol lection of specimen. [facility]kinXR ABD SERIES W/PA [id number] 17:33:07 Procedure: XR ABD SERIES W/PA CXROrder [...] PMDictated By: GLORY BENITEZKDate: 03/13/2020 17:26[facility]CHSTAT LAB CBC WITH AUTO [id number] 17:23:00 Test Item Value Reference Range Interpretation [...] on 03/13/2020 17:23 [facility] CenterkinLIPASE2020-09-13 17:23:00 Test Item Value Reference Range Interpretation Comments Lipase (test code = LIPA) 61 U/L 73-393 L [facility] CedarHEPATIC FUNCTION PANEL (LIVER)2020-03-13 17:23:00 Test Item Value [...] mg/dl 0.0-1.1 IBIL) [facility]edarURINALYSIS WITH [id number] 16:54:00 Test Item Value Reference Range Interpretation Comments Color (test code = UCOLR) Yellow Lt. Yellow A Clarity (test code = UCLAR) Clear Glucose (test code = UGLUC) Negative Negative N Bilirubin (test code = UBILI) Negative Negative N Ketones (test code = UKET) Negative Negative N Specific [place] (test code = >=1.030 1.005-1.030 A [...] code = UBACT) 4+ None Seen,Trace A [facility] LAB CHEM [id number] 16:37:00 Test Item Value Reference Range Interpretation [...] 0.4 mg/dl 0.6-1.3 L [facility]P PERC PLMNT MIDLINE NO PORT [...] MD 03/02/202012:17 PMDictated By: GLORY BENITEZKDate: 03/02/2020 12:17[facility]ITALCORONAVIR[facility] 2019 (IN HOUSE)2020-03-01 18:48:00 Test Item [...] r esults recommend recol lection of specimen. [facility]-LufkinPT AND [id number] 11:51:00 Test Item Value Reference Range Interpretation Comments Protime (test code 9.8 seconds 9.5-12.1 = PT) INR (test code = 0.9 0.9-1.1 INR results are intended INR) ONLY to monitor Oral Anticoagulant t herapy in stablized patie nts. The INR Therapeutic Range is 2.0 - 3.0 Patie nts with a mechanical he art, the INR Range is 2. 5 - 3.5 [facility] CenterkinPTT2020-09-01 11:51:00 Test Item Value Reference Range Interpretation Comments aPTT (test code = PTT) 27.4 seconds 23.9-30.7 [facility] CenterstefanieCBC (HEMOGRAM ONLY)2020-03-01 11:44:00 Test Item Value Reference [...] THE RE PORT. [facility] CedarCULTURE, [id number] 08:08:00Specimen: Urine RandomCollected: 02/25/2020 11:27 Status: Final Last Updated: 02/27/2020 08:08 CULTURE (Final) (Final) No Growth After 48 HoursMay[facility] [id number] 05:38:00 Test Item Value Reference Range Interpretation [...] 0.5-1.3 code = CREA) EGFR if >60 [place] (test code mL/min/1.73m\\ = EGFRAA) S\\2 EGFR if Non- >60 Estimate d Glomerular [place] (test code mL/min/1.73m\\ Filtrat ion Rate (eGFR) [...] and management of c hronic kidney failure. [facility] (Ultra Sensitive)2020-02-26 05:38:00 Test Item Value Reference Range Interpretation Comments TSH (test code = TSH) 0.04 mIU/L 0.35-3.74 L [facility] WITH AUTO [id number] 05:18:00 Test Item Value Reference Range Interpretation [...] 0.5 % 0.0-0.4 H IG%) CBC AUTO diffMeAurora [facility]-LufkinCORONAVIRUS 2019 (IN HOUSE)2020-02-25 14:06:00 Test [...] r esults recommend recol lection of specimen. [facility]-LufkinURINALYSIS WITH [id number] 12:56:00 Test Item Value Reference Range Interpretation Comments Color (test code = UCOLR) Yellow Lt. Yellow A Clarity (test code = UCLAR) Slightly Cloudy Glucose (test code = UGLUC) Negative Negative N Bilirubin (test code = UBILI) Negative Negative N Ketones (test code = UKET) Negative Negative N Specific [place] (test code = >=1.030 1.005-1.030 A [...] None Seen,Trace N [facility] Red CedarLIPASE2020-08-27 12:52:00 Test Item Value Reference Range Interpretation Comments Lipase (test code = LIPA) 90 U/L 73-393 [facility] CedarHEPATIC FUNCTION PANEL (LIVER)2020-02-25 12:52:00 Test Item Value [...] mg/dl 0.0-1.1 IBIL) [facility]edarCT ABDOMEN/PELVIS W/[id number] 12:42:41NPO 4 hours. Do not withhold medsProcedure: [...] MD 02/25/202012:36 PMDictated By: WILEY VELÁZQUEZDate: 02/25/2020 12:36[facility] LAB CHEM 2020-02-25 12:07:00 Test [...] = CREA) 0.5 mg/dl 0.6-1.3 L [facility] LAB CBC WITH AUTO [id number] 12:05:00 Test Item Value Reference Range Interpretation [...] code = IG%) 0.3 % 0.0-0.4 [facility] LAB CBC WITH AUTO [id number] 03:15:00 Test Item Value Reference Range Interpretation [...] % 0.0-0.4 H [facility] LAB CHEM [id number] 02:55:00 Test Item Value Reference Range Interpretation [...] mg/dl 0.6-1.3 L [facility] CedarXR ABDOMEN 1 VIEW (KUB)2020-02-25 02:45:30 PROCEDURE INFORMATION:Exam: [...] By: JORGE LUIS WHITEDate: 02/25/2020 02:45[facility] LAB , URINE 2020-02-25 01:12:00 Test Item Value Reference Range Interpretation Comments (Urine) (test code = Negative PREGU) [facility] LAB URINALYSIS WITHOUT [id number] 01:11:00 Test Item Value Reference Range Interpretation Comments Color (test code = UCOLR) Yellow Lt. Yellow A Clarity (test code = UCLAR) Clear Glucose (test code = UGLUC) Negative Negative N Bilirubin (test code = UBILI) Negative Negative N Ketones (test code = UKET) Negative Negative N Specific [place] (test code = USPGR) >=1.030 1.005-1.030 A Blood (test code = UBLD) Negative Negative N PH (test code = UPH) 5.5 4.5-8.0 A Protein (test code = UPROT) Negative Negative N Urobilinogen (test code = U UROB) 0.2 >0.2 N Nitrite (test code = UNITR) Negative Negative N Leukocyte Esterase (test code = Negative Negative N ULEUK) [facility]kinXR ABDOMEN 1 VIEW (KUB)2020-02-10 06:46:05 Procedure: XR ABDOMEN 1 VIEW (KUB)Order date: 02/10/2020 4:01 AMOrdering Provider: JUAN MENSAHClinical Indication: Abdominal painComparison: NoneFindings:There is no small or large bowel distention.There is no pneumoperitoneum.There are no suspicious calcifications.There is no skeletal abnormality.Impression:1. Negative single view abdomen.This final report was electronically signed by Dr Wiley Velázquez MD 02/10/20206:39 AMDictated By: WILEY VELÁZQUEZDate: 02/10/2020 06:39[facility] RENAL & BLADDER (KIDNEYS)2020-02-10 05:31:33PROCEDURE INFORMATION:Exam: [...] By: JORGE LUIS WHITEDate: 02/10/2020 05:31[facility]URINALYSIS WITH [id number] 05:10:00 Test Item Value Reference Range Interpretation Comments Color (test code = UCOLR) Yellow Lt. Yellow A Clarity (test code = UCLAR) Clear Glucose (test code = UGLUC) >=1000 Negative A Bilirubin (test code = UBILI) Negative Negative N Ketones (test code = UKET) Negative Negative N Specific [place] (test code = 1.015 1.005-1.030 A [...] = UBACT) None Seen None Seen,Trace N [facility] CenterZrgkgx-[id number] 04:42:00 Test Item Value Reference Range Interpretation Comments Lipase (test code = LIPA) 91 U/L 73-393 [facility]edarHEPATIC FUNCTION PANEL (LIVER)2020-02-10 04:42:00 Test Item Value [...] (test code = 0.2 mg/dl 0.0-1.1 IBIL) [facility] LAB CHEM [id number] 04:27:00 Test Item Value Reference Range Interpretation [...] (test code = CREA) 0.6 mg/dl 0.6-1.3 [facility] LAB , [id number] 04:24:00 Test Item Value Reference Range Interpretation Comments (Urine) (test code = Negative PREGU) [facility] LAB CBC WITH AUTO [id number] 04:22:00 Test Item Value Reference Range Interpretation [...] 0.5 % 0.0-0.4 H [facility]-L[facility]kinCT L SPINE W/O [id number] 12:46:24 Procedure: CT L SPINE W/O CONTRASTOrder date: 01/25/2020 11:46 AMOrdering Provider: DONALD Healyinical Indication: [id number]: Low back painComparison: NoneTechnique: Using a multislice [...] MD 01/25/202012:39 PMDictated By: WILEY VELÁZQUEZDate: 01/25/2020 12:39[facility] HOSPITALHEPATIC FUNCTION PANEL (LIVER)2019-12-09 05:49:00 Test Item Value [...] code = 0.3 mg/dl 0.0-1.1 IBIL) ER [address] [place], [place] [address]Sokxgc-[id number] 05:49:00 Test Item Value Reference Range Interpretation Comments Lipase (test code = LIPA) 105 U/L 73-[address] [place] [address] LAB CHEM [id number] 05:06:00 Test Item Value Reference Range Interpretation [...] code = CREA) 0.5 mg/dl 0.6-1.[address] LAB CBC WITH AUTO [id number] 05:04:00 Test Item Value Reference Range Interpretation [...] (test code = IG%) 0.4 % 0.0-0.[address]-[id number] 02:23:00 Test Item Value Reference Range Interpretation [...] ( 4 - SerumAlbumin)] EGFR if >60 [place] (test code mL/min/1.73m\\ = EGFRAA) S\\2 EGFR if Non- >60 Estimate d Glomerular [place] (test code mL/min/1.73m\\ Filtrat ion Rate (eGFR) [...] and management of c hronic kidney failure. [facility]kinURINALYSIS WITH [id number] 02:11:00 Test Item Value Reference Range Interpretation Comments Color (test code = UCOLR) Yellow Lt. Yellow A Clarity (test code = UCLAR) Clear Glucose (test code = UGLUC) Negative Negative N Bilirubin (test code = UBILI) Negative Negative N Ketones (test code = UKET) Trace Negative A Specific [place] (test code = USPGR) >=1.030 1.005-1.030 [...] 2+ None Seen,Trace A [facility] WITH AUTO [id number] 02:03:00 Test Item Value Reference Range Interpretation [...] (test code = IG%) 0.4 % 0.0-0.4 [facility]CT ABDOMEN/PELVIS W/[id number] 22:43:00NPO 4 hours. Do not withhold meds [...] PM CDT.Dictated By: JOSUÉ MCGHEEDate: 10/07/2019 22:42[facility] 2019-10-07 22:05:00 Test Item Value Reference [...] 0.5-1.3 code = CREA) EGFR if >60 [place] (test code mL/min/1.73m\\ = EGFRAA) S\\2 EGFR if Non- >60 Estimate d Glomerular [place] (test code mL/min/1.73m\\ Filtrat ion Rate (eGFR) [...] and management of c hronic kidney failure. [facility] HospitalkinAMYLASE, [id number] 22:05:00 Test Item Value Reference Range Interpretation Comments Amylase (test code = AMYL) 43 U/L 25-115 [facility] CenterTfisxw-[id number] 22:05:00 Test Item Value Reference Range Interpretation Comments Lipase (test code = LIPA) 95 U/L 73-393 [facility]kinURINALYSIS WITH [id number] 21:49:00 Test Item Value Reference Range Interpretation Comments Color (test code = UCOLR) Yellow Lt. Yellow A Clarity (test code = UCLAR) Clear Glucose (test code = UGLUC) Negative Negative N Bilirubin (test code = UBILI) Negative Negative N Ketones (test code = UKET) 15 Negative A Specific [place] (test code = USPGR) >=1.030 1.005-1.030 [...] 3+ None Seen,Trace A [facility] WITH AUTO [id number] 21:45:00 Test Item Value Reference Range Interpretation [...] code = IG%) 0.4 % 0.0-0.4 [facility] LAB , [id number] 21:36:00 Test Item Value Reference Range Interpretation Comments (Urine) (test code = Negative PREGU) [facility]LV[facility] W/O [id number] 03:56:36 PROCEDURE INFORMATION:Exam: CT Abdomen And Pelvis [...] AM CDT.Dictated By: AMY ORDOÑEZDate: 09/20/2019 03:56 [id number] 02:07:00 Test Item Value Reference Range Interpretation [...] ( 4 - SerumAlbumin)] EGFR if >60 [place]olese (test code mL/min/1.73m\\ = EGFRAA) S\\2 EGFR if Non- >60 Estimate d Glomerular [place] (test code mL/min/1.73m\\ Filtrat ion Rate (eGFR) [...] and management of c hronic kidney failure. [facility] 2 VIEWS FLAT / [id number] 02:01:15PROCEDURE INFORMATION:Exam: XR Abdomen, 2 ViewsExam date [...] gas.This Final report was electronically signed by Aym Ordoñez MD on 2:01 AM CDT.Dictated By: Dawn ORDOÑEZte: 09/20/2019 02:01[facility] WITH MICROSCOPIC 2019-09-20 01:56:00 Test Item Value Reference Range Interpretation Comments Color (test code = UCOLR) Yellow Lt. Yellow A Clarity (test code = UCLAR) Clear Glucose (test code = UGLUC) >=1000 Negative A Bilirubin (test code = UBILI) Negative Negative N Ketones (test code = UKET) Trace Negative A Specific [place] (test code = USPGR) >=1.030 1.005-1.030 [...] = UBACT) 2+ None Seen,Trace A [facility] LAB CBC WITH AUTO [id number] 01:38:00 Test Item Value Reference Range Interpretation [...] 0.5 % 0.0-0.4 H [facility] ABDOMEN/PELVIS W/[id number] 04:23:30 PROCEDURE INFORMATION:Exam: CT Abdomen And Pelvis [...] CDT.Dictated By: SETH MEDINADate: 08/17/2019 04:23[facility] [id number] 03:34:00 Test Item Value Reference Range Interpretation Comments Lipase (test code = LIPA) 67 U/L 73-393 L [facility]-[id number] 03:34:00 Test Item Value Reference Range Interpretation [...] ( 4 - SerumAlbumin)] EGFR if >60 [place] (test code mL/min/1.73m\\ = EGFRAA) S\\2 EGFR if Non- >60 Estimate d Glomerular [place] (test code mL/min/1.73m\\ Filtrat ion Rate (eGFR) [...] and management of c hronic kidney failure. [facility] CBC WITH AUTO [id number] 03:19:00 Test Item Value Reference Range Interpretation [...] code = IG%) 0.7 % 0.0-0.4 H [facility]kinURINALYSIS WITH [id number] 03:10:00 Test Item Value Reference Range Interpretation Comments Color (test code = UCOLR) YELLOW Clarity (test code = UCLAR) CLEAR Glucose (test code = UGLUC) NEGATIVE NEGATIVE N Bilirubin (test code = UBILI) NEGATIVE NEGATIVE N Ketones (test code = UKET) NEGATIVE NEGATIVE N Specific [place] (test code = 1.025 1.005-1.030 A [...] code = UBACT) 1+ None Seen,Trace A [facility] LAB , [id number] 03:03:00 Test Item Value Reference Range Interpretation Comments (Urine) (test code = Negative PREGU) ONLY AVAILABLE [address] [address] [id number] 20:37:00 Test Item Value Reference Range Interpretation [...] (test code = CREA) 0.6 mg/dl 0.6-1.2 [place] [address] [id number] 20:28:00 Test Item Value Reference Range Interpretation [...] code = MPV) 7.1 fL 8.0-11.0 A [facility]CULT[facility], [id number] 08:44:28fho0Zrbxsgwj: Urine SpecimensCollected: 07/12/2019 15:00 Status: Final Last Updated: 2019 08:44 (1) err7 Culture Result (Final) (Final) Moderate Mixed Body Gabriela Isolated No Pathogens Isolated No Further Workup PerformedGrant [facility] Health Center-LukinFL LIMITED [id number] 17:53:41Procedures: FL LIMITED IVPExam Date: 07/12/2019 3:21 PMOrdering Physician: REHAN Farrellinical Indication: [id number]: Flank painComparison: CT abdomen/pelvis, 05/17/19Findings: Frontal radiographs [...] PMDictated By: ELMER PHAMDate: 07/12/2019 17:47[id number] 15:56:00 Test Item Value Reference Range Interpretation Comments Lipase (test code = LIPA) 97 U/L 73-[address]-[place]HEPATIC FUNCTION PANEL (LIVER)2019-07-12 15:56:00 Test Item Value [...] (test code = 0.2 mg/dl 0.0-1.1 IBIL) [address]-[place]ufkinURINALYSIS WITH [id number] 15:51:00 Test Item Value Reference Range Interpretation Comments Color (test code = UCOLR) YELLOW Clarity (test code = UCLAR) CLEAR Glucose (test code = UGLUC) NEGATIVE NEGATIVE N Bilirubin (test code = UBILI) NEGATIVE NEGATIVE N Ketones (test code = UKET) NEGATIVE NEGATIVE N Specific [place] (test code = 1.020 1.005-1.030 A [...] code = UBACT) 4+ None Seen,Trace A [address] LAB CHEM [id number] 15:09:00 Test Item Value Reference Range Interpretation [...] (test code = CREA) 0.6 mg/dl 0.6-1.[address] LAB CBC WITH AUTO [id number] 15:08:00 Test Item Value Reference Range Interpretation [...] (test code = IG%) 0.4 % 0.0-0.[address]-[place]CT ABDOMEN/PELVIS W/[id number] 16:33:46NPO 4 hours. Do not withhold medsProcedures: CT ABDOMEN/PELVIS W/CONTRASTExam Date: 05/17/2019 1:31 PMOrdering Physician: MERLE LYNNEClinical Indication: [id number]: Abdominal painComparison: CT abdomen/pelvis, 04/09/19TECHNIQUE: Spiral multislice [...] MD05/17/2019 4:27 PMDictated By: ELMER PHAMDate: 05/17/2019 16:27[facility] [id number] 16:20:00 Test Item Value Reference Range Interpretation Comments Lipase (test code = LIPA) 70 U/L 73-393 L [facility] LAB CHEM [id number] 15:24:00 Test Item Value Reference Range Interpretation [...] = CREA) 0.5 mg/dl 0.6-1.3 L [facility] LAB LACTIC [id number] 15:23:00 Test Item Value Reference Range Interpretation Comments LACTATE (test code = LAC) 1.39 mmol/l 0.90-1.70 [facility] LAB CBC WITH AUTO [id number] 15:21:00 Test Item Value Reference Range Interpretation [...] 0.5 % 0.0-0.4 H [facility]kinURINALYSIS WITH [id number] 15:08:00 Test Item Value Reference Range Interpretation Comments Color (test code = UCOLR) YELLOW Clarity (test code = UCLAR) CLEAR Glucose (test code = UGLUC) NEGATIVE NEGATIVE N Bilirubin (test code = UBILI) NEGATIVE NEGATIVE N Ketones (test code = UKET) NEGATIVE NEGATIVE N Specific [place] (test code = 1.025 1.005-1.030 A [...] code = UBACT) 2+ None Seen,Trace A [facility]CT ANGIO HEAD W/WO [id number] 16:28:5720 g Cathlon Above the Antecubital or higher requiredProcedure: CT ANGIO HEAD W/WO CONTRASTOrder Date: 05/12/2019 3:30 PMOrdering Provider: REHAN CABRERARSClinical Indication: [id number]: HeadacheComparison: NoneTechnique: Using a helical scanner, sequential axial imaging of the brain wasobtained before and after the administration of the contrast medium. At anindependent workstation, 3-D reconstructions of the [place] of [place] wereobtained.This examwas performed according to [...] PMDictated By: FARZAD DEWITTDate: 05/12/2019 16:22[facility]CHCT ABDOMEN/PELVIS W/[id number] 14:36:05NPO 4 hours. Do not withhold medsProcedure: [...] MD 04/09/20192:29 PMDictated By: GLORY BENITEZKDate: 04/09/2019 14:29[facility] WITH AUTO [id number] 09:02:00 Test Item Value Reference Range Interpretation [...] code = 0.5 % 0.0-0.4 H IG%) [facility] WITH AUTO [id number] 09:14:00 Test Item Value Reference Range Interpretation [...] (test code = 0.4 % 0.0-0.4 IG%) [facility]-[id number] 09:12:00 Test Item Value Reference Range Interpretation [...] 0.5-1.3 code = CREA) EGFR if >60 [place] (test code mL/min/1.73m\\ = EGFRAA) S\\2 EGFR if Non- >60 Estimate d Glomerular [place] (test code mL/min/1.73m\\ Filtrat ion Rate (eGFR) [...] and management of c hronic kidney failure. [facility]ufkinSP PERC PLMNT MIDLINE NO PORT > [...] MD 04/07/20194:05 PMDictated By: WILEY VELÁZQUEZDate: 04/07/2019 16:05[facility] W/[id number] 22:50:40PROCEDURE INFORMATION:Exam: CT Abdomen and pelvis with [...] CDT.Dictated By: ELMER PHAMDate: 04/04/2019 22:50[facility] [id number] 21:22:00 Test Item Value Reference Range Interpretation Comments Lipase (test code = LIPA) 89 U/L 73-393 [facility]HEPAT[facility] FUNCTION PANEL (LIVER)2019-04-04 21:22:00 Test Item Value [...] code = 0.3 mg/dl 0.0-1.1 IBIL) [facility] LAB CHEM [id number] 21:07:00 Test Item Value Reference Range Interpretation [...] (test code = CREA) 0.6 mg/dl 0.6-1.3 [facility] LAB URINALYSIS WITHOUT [id number] 21:05:00 Test Item Value Reference Range Interpretation Comments Color (test code = UCOLR) Yellow Lt. Yellow A Clarity (test code = UCLAR) Slightly Cloudy Glucose (test code = UGLUC) 100 Negative A Bilirubin (test code = UBILI) Negative Negative N Ketones (test code = UKET) Negative Negative N Specific [place] (test code = >=1.030 1.005-1.030 A USPGR) Blood (test code = UBLD) Negative Negative N PH (test code = UPH) 5.5 4.5-8.0 A Protein (test code = UPROT) Negative Negative N Urobilinogen (test code = U 0.2 >0.2 N UROB) Nitrite (test code = UNITR) Negative Negative N Leukocyte Esterase (test code Negative Negative N = ULEUK) [facility] LAB CBC WITH AUTO [id number] 21:04:00 Test Item Value Reference Range Interpretation [...] = IG%) 0.5 % 0.0-0.4 H [facility] LAB , [id number] 21:04:00 Test Item Value Reference Range Interpretation Comments (Urine) (test code = Negative PREGU) ONLY AVAILABLE 8A-12[facility]kinED[facility] [id number] 16:05:00 Test Item Value Reference Range Interpretation Comments Sodium (test code = CANCELED mmol/l The r eleased value NA) 141 was cancele d by [id number] on 04/04/2019 16:0 5 Potassium (test code CANCELED mmol/l The released value = K) 3.9 was cancele d by [id number] on 04/04/2019 16:0 5 CO2 (test code = CANCELED mmol/l The rele ased value CO2) 23 was canceled by [id number] on 04/04/2019 16:0 5 Chloride (test code CANCELED mmol/l The r eleased value = CL) 108 was cancele d by [id number] on 04/04/2019 16:0 5 Glucose (test code = CANCELED mg/dl The r eleased value GLU) 96 was canceled by [id number] on 04/04/2019 16:0 5 Calcium (test code = CANCELED mg/dl The r eleased value CALC) 8.8 was cancele d by [id number] on 04/04/2019 16:0 5 BUN (test code = CANCELED mg/dl The relea sed value BUN) 11 was canceled by [id number] on 04/04/2019 16:0 5 Creatinine (test CANCELED mg/dl code = CREA) [facility] [id number] 11:08:[address] [place] [address]Pkzil: [phone] VFDW #: [id number] MedicalDirector: Seth Valdez M.D.Surgical Pathology Consultation ReportPatient Name: LAUREN BETH Case #: [id number] Med. Rec. #:[id number] [facility] Date: 03/21/2019 : 1985(Age:33) Received: 03/23/2019 [...] greatest dimension. The cystsarefilled with clearserous fluid. Judo Instructor sections of the ovaryandpossible fallopian tube are submitted in cassettes A1-A8. 03/23/2019 Seth Valdez MD, Board Certified in Anatomic Pathology Microscopic DescriptionMicroscopic examination of the right ovary reveals fibrovascularadhesionsalong the surface of the ovary as well as along the accompanyingfallopiantube. The ovarian parenchyma contains follicular cysts, benign serouscyst,as well as numerous corpus albicans. No areas of endometriosis areseen. Billing Fee Code(s): A; 40556WkfzblmjMay[facility]- US TRANSVAGINAL W/[id number] 16:45:00 Patient Name: ADELIA BETH Unit No: [id number] EXAMS: CPT CODE: [id number] US TRANSVAGINAL W/PELVIS 59259 CLINICAL HISTORY: Right lower quadrant pain. Status [...] MD Technologist: Dipesh Lopez RDMS, RVT Probe: [id number] Trnscrbd D/ (2185) t.MICAELAR.YOS Orig Print D/T: S: 03/10/2019 (2434) [facility] NAME: ADELIA BETH Radiology Department PHYS: [facility]. - Hilaria Calderón [address] : 1985 AGE: 33 SEX: F [place] [address] LOC: DayanaraERS PHONE #: [phone] EXAM DATE: 03/10/2019 STATUS: REG ER FAX #: [phone] RAD NO: Page 1 Signed Report Patient Name: ADELIA BETH Unit No: [id number] EXAMS: CPT CODE: [id number] US TRANSVAGINAL W/PELVIS 98396 <Continued> [facility] NAME: ADELIA BETH Radiology Department PHYS: SUE.Faustino - Hilaria Caldernó [address] : 1985 AGE: 33 SEX: F [place] [address] LOC: DayanaraERS PHONE #: [phone] EXAM DATE: 03/10/2019 STATUS: REG ER FAX #: [phone] RAD NO: Page 2 Signed Report- US TRANSVAGINAL W/PELVIS 2019-03-10 16:45:00 Patient Name: LAUREN BETH Unit No: [id number] EXAMS: CPT CODE: [id number] US TRANSVAGINAL W/PELVIS 15760 CLINICAL HISTORY: Right lower quadrant pain. Status post appendectomy. History of ovarian cyst. Real- time ultrasound examination of the pelvis was performed [...] flow is identifiedin the right ovary. at 5846 Reported andsigned by: Mario Guidry MD CC: Hilaria Calderón MD Technologist: Dipesh Lopez RDMS, RVT Probe:[id number] Trnscrbd D/ (2063) tJASMYNS Orig Print D/T: S: 03/10/2019 (4020) The [facility] NAME: LAUREN BETH Radiology Department PHYS: SUE. - Hilaria Calderón [address] : 1985 AGE: 33 SEX: F [place] [address] LOC: ALONDRA PHONE #: [phone] EXAM DATE: 03/10/2019 STATUS: [facility] ER FAX #: [phone] RAD NO: [id number] Page 1 Signed Report Patient Name: LAUREN BETH Unit No: [id number] EXAMS: CPT CODE: [id number] US TRANSVAGINAL W/PELVIS 29946 (Continued) [facility] NAME: LAUREN BETH Radiology DepartmentPHYS: - Hilaria Calderón [address] : 1985 AGE: 33 SEX: Luis Fernando [place], [place] [address] LOC: ALONDRA PHONE #: [phone] EXAM DATE: 03/10/2019 STATUS: [facility] ER FAX #: [phone] RAD NO: [id number] Page 2 Signed Report- US PELVIS [id number] 16:45:00 Patient Name: ADELIA BETH Unit No: [id number] EXAMS: CPT CODE: [id number] US PELVIS COMPLETE 94869 CLINICAL HISTORY: Right lower quadrant pain. Status [...] Dipesh Lopez RDMS, T Probe: Trnscrbd D/ (3210) VereniceYOS Orig Print D/T: S: 03/10/2019 (2170) The [facility] NAME: ADELIA BETH Radiology Department PHYS: Hilaria Maldonado [address] : 1985 AGE: 33 SEX: F [place], [place] [address] LOC: ALONDRA PHONE #: [phone] EXAM DATE: STATUS: [facility] ER FAX #: [phone] RAD NO: Page 1 Signed Report Patient Name: ADELIA BETH Unit No: [id number] EXAMS: CPT CODE: [id number] US PELVIS COMPLETE 26717 <Continued> [facility] NAME: ADELIA BETH Radiology Department PHYS: GUTAL. - CalderónSarabjitHilaria [address] : 1985 AGE: 33 SEX: F [place], [place] [address] LOC: ALONDRA PHONE #: [phone] EXAM DATE: 03/10/2019 STATUS: REG ER FAX #: [phone] RAD NO: Page 2 Signed Report- US PELVIS [id number] 16:45:00 Patient Name: LAUREN BETH Unit No: [id number] EXAMS: CPT CODE: [id number] US PELVIS COMPLETE 98640 CLINICAL HISTORY: Right lower quadrant pain. Status [...] Dipesh Lopez RDMS, RVT Probe: Trnscrbd D/ (538) Ro Calixto D/T: S: 03/10/2019 (4080) The [facility] NAME: LAUREN BETH Radiology Department PHYS: GUTAL. - StephaneSarabjitHilaria [address] : 1985 AGE: 33 SEX: F [place], [place] [address] LOC: ALONDRA PHONE #: [phone] DATE: 03/10/2019 STATUS: DEP ER FAX #: [phone] RAD NO: [id number] Page 1 Signed Report PatientName: LAUREN BETH Unit No: [id number] EXAMS: CPT CODE: [id number] US PELVIS COMPLETE 75102 (Continued) [facility] NAME: LAUREN BETH Radiology Department PHYS: Hilaria Arndt [address] : 1985 AGE: 33 SEX: [place] Fernando [place], [place] [address] LOC: ALONDRA PHONE #: [phone] EXAM DATE: 03/10/2019 STATUS: [facility] ER FAX #: [phone] RAD NO: [id number] Page 2 Signed ReportCBC W/AUTO [id number] 16:18:00 Test Item Value Reference Range Interpretation [...] = PLTMR) UA RFLX MICR CULT IF [id number] 16:07:00 Test Item Value Reference Range Interpretation [...] A Indication for culture: Suprapubic PainUR HCG [id number] 16:07:00 Test Item Value Reference Range Interpretation [...] culture: Suprapubic PainUA RFLX MICR CULT IF [id number] 16:04:00 Test Item Value Reference Range Interpretation [...] EPIU) Indication for culture: Suprapubic PainUR HCG [id number] 16:04:00 Test Item Value Reference Range Interpretation [...] culture: Suprapubic PainUA RFLX MICR CULT IF [id number] 15:55:00 Test Item Value Reference Range Interpretation [...] RARE-FEW Indication for culture: Suprapubic PainUR HCG [id number] 15:55:00 Test Item Value Reference Range Interpretation [...] and tested. Indication for culture: Suprapubic PainED2 [id number] 01:18:00 Test Item Value Reference Range Interpretation [...] = MPV) 6.9 fL 8.0-11.0 A [facility]ED[facility] URINE [id number] 00:55:00 Test Item Value Reference Range Interpretation Comments Color (test code = UCOLR) Yellow Lt. Yellow A Clarity (test code = UCLAR) Clear Glucose (test code = UGLUC) NEGATIVE NEGATIVE N Bilirubin (test code = UBILI) NEGATIVE NEGATIVE N Ketones (test code = UKET) NEGATIVE NEGATIVE N Specific [place] (test code = USPGR) 1.030 1.005-1.030 A Blood (test code = UBLD) NEGATIVE NEGATIVE N PH (test code = UPH) 6.0 4.5-8.0 A Protein (test code = UPROT) Trace NEGATIVE A Urobilinogen (test code = U UROB) 0.2 >0.2 N Nitrite (test code = UNITR) NEGATIVE NEGATIVE N Leukocyte Esterase (test code = NEGATIVE NEGATIVE N ULEUK) [facility] , [id number] 00:54:00 Test Item Value Reference Range Interpretation Comments (Urine) (test code = Negative PREGU) [facility] CenterHmlvzb-JtmthhWTAPWW1840-43-10 13:07:00 Test Item Value Reference Range Interpretation Comments Lipase (test code = LIPA) 106 U/L 73-393 [facility] ABDOMEN/PELVIS W/[id number] 12:24:12Procedures: ED2 CT ABDOMEN/PELVIS W/CONTRASTExam Date: 02/07/2019 10:11 AMOrdering Physician: WYATT Downsinical Indication: [id number]: Epigastric painComparison: CT abdomen/pelvis, 01/27/19TECHNIQUE: Spiral multislice [...] MD02/07/2019 12:17 PMDictated By: ELMER PHAMDate: 02/07/2019 12:17[facility] [address]2019-08-10 10:48:00 Test Item Value Reference [...] (test code = TP) 7.6 gm/dl 6.4-8.1 [facility]kinED[facility] URINE [id number] 10:45:00 Test Item Value Reference Range Interpretation Comments Color (test code = UCOLR) Yellow Lt. Yellow A Clarity (test code = UCLAR) Sl Cloudy Glucose (test code = UGLUC) NEGATIVE NEGATIVE N Bilirubin (test code = UBILI) NEGATIVE NEGATIVE N Ketones (test code = UKET) NEGATIVE NEGATIVE N Specific [place] (test code = 1.025 1.005-1.030 A USPGR) Blood (test code = UBLD) NEGATIVE NEGATIVE N PH (test code = UPH) 5.5 4.5-8.0 A Protein (test code = UPROT) NEGATIVE NEGATIVE N Urobilinogen (test code = U UROB) 0.2 >0.2 N Nitrite (test code = UNITR) NEGATIVE NEGATIVE N Leukocyte Esterase (test code = NEGATIVE NEGATIVE N ULEUK) [facility] , [id number] 10:45:00 Test Item Value Reference Range Interpretation Comments (Urine) (test code = Negative PREGU) [facility]ED[facility] [id number] 10:44:00 Test Item Value Reference Range Interpretation [...] code = MPV) 6.8 fL 8.0-11.0 A [facility]CT [facility]BD[facility]/PELVIS W/[id number] 12:29:19s/p hysterectomy; rlq painProcedure: CT ABDOMEN/PELVIS W/CONTRASTOrder Date: 01/27/2019 10:57 AMOrdering Provider: DR LEXUS CASTREJON ACOSTAClinical Indication: [id number]: Abdominal painComparison: September 30, 2018TECHNIQUE:The abdo men [...] PMDictated By: GLORY BENITEZKDate: 01/27/2019 12:23[facility]URINALYSIS WITH [id number] 12:10:00 Test Item Value Reference Range Interpretation Comments Color (test code = UCOLR) YELLOW Clarity (test code = UCLAR) CLEAR Glucose (test code = UGLUC) NEGATIVE NEGATIVE N Bilirubin (test code = UBILI) NEGATIVE NEGATIVE N Ketones (test code = UKET) NEGATIVE NEGATIVE N Specific [place] (test code = USPGR) <=1.005 1.005-1.030 [...] code = UBACT) Trace None Seen,Trace N [facility] CenterXscqhx-MbrolwPAAHUC2971-01-30 11:49:00 Test Item Value Reference Range Interpretation Comments Lipase (test code = LIPA) 91 U/L 73-393 [facility]edarAMYLASE, [id number] 11:49:00 Test Item Value Reference Range Interpretation Comments Amylase (test code = AMYL) 45 U/L 25-115 [facility] LAB CHEM [id number] 11:25:00 Test Item Value Reference Range Interpretation [...] = CREA) 0.5 mg/dl 0.6-1.3 L [facility] LAB CBC WITH AUTO [id number] 11:23:00 Test Item Value Reference Range Interpretation [...] code = IG%) 0.6 % 0.0-0.4 H [facility] PELVIS [id number] 07:55:25h/o complex right ovarian cystsProcedure: Pelvic ultrasound.CLINICAL [...] 12/07/20187:49 AMDictated By:WILEY VELÁZQUEZDate: 12/07/2018 07:49[facility] [id number] 03:11:00 Test Item Value Reference Range Interpretation Comments Lipase (test code = LIPA) 136 U/L 73-393 [facility]edarHEPATIC FUNCTION PANEL (LIVER)2018-12-07 03:10:00 Test Item Value [...] code = 0.1 mg/dl 0.0-1.1 IBIL) [facility] LAB CHEM [id number] 02:41:00 Test Item Value Reference Range Interpretation [...] = CREA) 0.5 mg/dl 0.6-1.3 L [facility] LAB CBC WITH AUTO [id number] 02:39:00 Test Item Value Reference Range Interpretation [...] 0.5 % 0.0-0.4 H [facility]kinURINALYSIS WITH [id number] 02:37:00 Test Item Value Reference Range Interpretation Comments Color (test code = UCOLR) YELLOW Clarity (test code = UCLAR) CLEAR Glucose (test code = UGLUC) 500 NEGATIVE A Bilirubin (test code = UBILI) NEGATIVE NEGATIVE N Ketones (test code = UKET) TRACE NEGATIVE A Specific [place] (test code = USPGR) >=1.030 1.005-1.030 [...] code = UBACT) 2+ None Seen,Trace A [facility]kinCULTURE, [id number] 07:39:00CULTURE RIGHT ABDOMEN WOUND CARE DEPTSpecimen: AbdomenCollected: [...] Sc (+/-) Negative - ICR (+/-) Negative -[facility]kinXR CHEST AP/PA 1 [id number] 05:15:17Procedure: XR CHEST AP/PA 1 VIEWOrder Date: 09/30/2018 8:28 PMOrdering Provider: DIMAS Haskinsinical Indication: [id number]: Acute chest painComparison: May 13, 2017Findings:Cardiac size is magnified by technique.Pulmonary vasculature is normal.Mediastinal contour is normal.Aortic contour is normal.There is no consolidation or effusion.There is no evidence of active tuberculosis.There is no mass or pneumothorax.There is no skeletal abnormality.Impression: Negative AP portable chest x-ray.This final report was electronically signed by Dr Farzad Dewitt MD 10/01/20185:08 AMDictated By: FARZAD DEWITTDate: 10/01/2018 05:08 [facility]O [id number] 00:42:26NPO 4 hours. Do not withhold medsEXAM:CT [...] on 01 Oct 201812:42 AM CDT.Dictated By: REAHN AZARDate: 10/01/2018 00:42[id number] 21:37:00 Test Item Value Reference Range Interpretation Comments Lipase (test code = LIPA) 82 U/L 73-393 [facility] (LIVER)2018-09-30 21:37:00 Test Item Value [...] (test code = 0.5 mg/dl 0.0-1.1 IBIL) [facility] LAB CHEM [id number] 21:10:00 Test Item Value Reference Range Interpretation [...] = CREA) 0.5 mg/dl 0.6-1.3 L [facility] LAB CBC WITH AUTO [id number] 21:09:00 Test Item Value Reference Range Interpretation [...] (test code = IG%) 0.3 % 0.0-0.4 [facility] W/WO TUBE,[id number] 12:44:00 RUN DATE: 09/04/18 [facility] PAGE 1 RUN TIME: 1454 Specimen Inquiry RUN USER: INTERFACE --PATIENT: LAUREN BETH LOC: [place] U #: [id number] AGE/SX: 33/F ROOM: [facility] RE09/02/18REG DR: Elmer Flores : 86 BED: A DIS: 09/03/18 STATUS: DIS [place]y TLOC: SPEC #: [id number] RECD: 09/02/18 STATUS: KWAME GARCIA #: [id number] MELISSA: 09/02/18- SUBM DR: Elmer Flores III ENTERED: 09/03/18 SP TYPE: MUSA PELAYO DR: ORDERED: LEVEL IV CODES: [id number] - OVARY, NOS PROCEDURES: LEVEL IV (Incomplete) TISSUES: OVARY, NOS - RIGHT OVARIAN CYST CLINICAL HISTORY 33 year old, acute pelvic pain (wpd) FINAL DIAGNOSIS Right ovarian cyst, excision: - benign simple cyst of ovary Tissue code 1 CPT code(s): 59660 [facility] 09/04/18 GROSS DESCRIPTION ANATOMIC [...] with multiple yellow-orange, centrally hemorrhagic corpora lutea. Judo Instructor sections are submitted as A and B. telma/wpd 09/03/18 @ 1343 Signed Amaris Wharton MD 09/04/18 1244 END OF REPORT CBC W/AUTO [id number] 03:10:00 Test Item Value Reference Range Interpretation [...] NORMAL NORMAL code = PLTMR) CHEMISTRY 7 [id number] 14:15:00 Test Item Value Reference Range Interpretation [...] CA) 9.2 mg/dL 8.4-10.2 N CBC W/AUTO [id number] 13:42:00 Test Item Value Reference Range Interpretation [...] NORMAL NORMAL code = PLTMR) US INTRAVAGINAL [id number] 12:35:09Procedure: Pelvic ultrasound.CLINICAL INDICATION: Pelvic pain. Status [...] PMDictated By: WILEY VELÁZQUEZDate: 09/01/2018 12:28[facility] CBC WITH AUTO [id number] 11:31:00 Test Item Value Reference Range Interpretation [...] [id number] 71 on 09/01/2018 11:31 ONLY AVAILABLE [address] [place] [address] A[place]EN/PELVIS W/O [id number] 11:11:01MLP CProcedure: CT ABDOMEN/PELVIS W/O CONTRASTOrder Date: 09/01/2018 9:28 AMOrdering Provider: CHIN Guilleninical Indication: [id number]: Abdominal pain. Left lower quadrant painComparison: 12/24/2017TECHNIQUE:CT [...] 09/01/201811:04 AMDictatedBy: GLORY BENITEZKDate: 09/01/2018 11:04[facility] LAB CHEM [id number] 10:26:00 Test Item Value Reference Range Interpretation [...] CREA) 0.4 mg/dl 0.6-1.3 L ONLY AVAILABLE [address] [place] [address]-[place] LAB URINALYSIS WITHOUT [id number] 09:59:00 Test Item Value Reference Range Interpretation Comments Color (test code = UCOLR) Yellow Lt. Yellow A Clarity (test code = UCLAR) Clear Glucose (test code = UGLUC) NEGATIVE Negative A Bilirubin (test code = UBILI) NEGATIVE Negative A Ketones (test code = UKET) NEGATIVE Negative A Specific [place] (test code = USPGR) 1.015 1.005-1.030 A Blood (test code = UBLD) NEGATIVE Negative A PH (test code = UPH) 7.0 4.5-8.0 A Protein (test code = UPROT) NEGATIVE Negative A Urobilinogen (test code = U UROB) 0.2 >0.2 N Nitrite (test code = UNITR) NEGATIVE Negative A Leukocyte Esterase (test code = NEGATIVE Negative A ULEUK) ONLY AVAILABLE [address] [place] [address]-[place] INTRAVAGINAL PELVIS 2018-05-13 13:26:23Procedure: Pelvic ultrasound.CLINICAL INDICATION: [...] PMDictated By: WILEY VELÁZQUEZDate: 05/13/2018 13:20[facility] LAB CBC WITH AUTO [id number] 12:22:00 Test Item Value Reference Range Interpretation [...] code = 0.2 % 0.0-0.4 IG%) [facility] LAB CBC WITH AUTO [id number] 11:54:00 Test Item Value Reference Range Interpretation [...] 0.5 % 0.0-0.4 H IG%) ONLY AVAILABLE [address] [place] [address] LAB URINALYSIS WITHOUT [id number] 11:25:00 Test Item Value Reference Range Interpretation Comments Color (test code = UCOLR) Yellow Lt. Yellow A Clarity (test code = UCLAR) Clear Glucose (test code = UGLUC) NEGATIVE Negative A Bilirubin (test code = UBILI) NEGATIVE Negative A Ketones (test code = UKET) NEGATIVE Negative A Specific [place] (test code = USPGR) 1.020 1.005-1.030 A Blood (test code = UBLD) NEGATIVE Negative A PH (test code = UPH) 7.0 4.5-8.0 A Protein (test code = UPROT) NEGATIVE Negative A Urobilinogen (test code = U UROB) 0.2 >0.2 N Nitrite (test code = UNITR) NEGATIVE Negative A Leukocyte Esterase (test code = NEGATIVE Negative A ULEUK) ONLY AVAILABLE [address] [place] [address] LAB , URINE 2018-05-13 11:25:00 Test Item Value Reference Range Interpretation Comments (Urine) (test code = Negative PREGU) ONLY AVAILABLE [address] [place] [address] LAB CHEM [id number] 11:23:00 Test Item Value Reference Range Interpretation [...] CREA) 0.5 mg/dl 0.6-1.3 L ONLY AVAILABLE [address] [place] [address]-[place] INTRAVAGINAL PELVIS 2017-12-24 12:50:53Procedure: Pelvic ultrasound.CLINICAL INDICATION: [...] MD 12/24/201712:44 PMDictated By: WILEY VELÁZQUEZDate: 12/24/2017 12:50[facility] WITH [id number] 10:22:00 Test Item Value Reference Range Interpretation Comments Color (test code = UCOLR) Yellow Clarity (test code = UCLAR) Clear Glucose (test code = UGLUC) NEGATIVE NEGATIVE N Bilirubin (test code = UBILI) NEGATIVE NEGATIVE N Ketones (test code = UKET) NEGATIVE NEGATIVE N Specific [place] (test code = USPGR) 1.025 1.005-1.030 [...] code = UBACT) Trace None Seen,Trace N [facility]kinLIPASE, [id number] 10:05:00 Test Item Value Reference Range Interpretation Comments Lipase (test code = LIPA) 40 U/L 8-223 [facility]-[id number] 10:05:00 Test Item Value Reference Range Interpretation [...] ( 4 - SerumAlbumin)] EGFR if >60 [place] (test code mL/min/1.73m\\ = EGFRAA) S\\2 EGFR if Non- >60 Estimate d Glomerular [place] (test code mL/min/1.73m\\ Filtrat ion Rate (eGFR) [...] and management of c hronic kidney failure. [facility]/ PELVIS W/O CON (RENAL STONE)2017-12-24 [...] MD 12/24/20179:32 AMDictated By: WILEY VELÁZQUEZDate: 12/24/2017 09:38[facility] WITH AUTO DIFF 2017-12-24 09:26:00 Test Item [...] = 0.6 % 0.0-0.4 H IG%) AUTO [facility]FFGrant [facility]kinCT ABD/ PELVIS W/O CON (RENAL STONE) [...] on 3:19 AMCDT.Dictated By: MARVIN DOBBSDate: 06/21/2017 03:20[facility]AL[facility] WITH [id number] 03:20:00 Test Item Value Reference Range Interpretation Comments Color (test code = UCOLR) YELLOW Clarity (test code = UCLAR) CLEAR Glucose (test code = UGLUC) NEGATIVE NEGATIVE N Bilirubin (test code = UBILI) NEGATIVE NEGATIVE N Ketones (test code = UKET) NEGATIVE NEGATIVE N Specific [place] (test code = 1.020 1.005-1.030 A [...] = UBACT) None Seen None Seen,Trace N [address]-[id number] 03:07:00 Test Item Value Reference Range Interpretation [...] ( 4 - SerumAlbumin)] EGFR if >60 [place] (test code mL/min/1.73m\\ = EGFRAA) S\\2 EGFR if Non- >60 Estimate d Glomerular [place] (test code mL/min/1.73m\\ Filtrat ion Rate (eGFR) [...] and management of c hronic kidney failure. [address]inLIPASE, [id number] 03:07:00 Test Item Value Reference Range Interpretation Comments Lipase (test code = LIPA) 61 U/L 8-[address] [place] [address]-[place]CBC WITH AUTO [id number] 03:05:00 Test Item Value Reference Range Interpretation [...] code = 0.4 % 0.0-0.4 IG%) er [address] [place] [address]-[place]XR CHEST 2 PA [id number] 19:56:04 Procedure: XR CHEST 2 PA LATERALExam date: 05/13/2017 3:53 PMOrdering Provider: DR ASA BLOOMClinical Indication: fatigue, Chest painComparison: March 15, 2016Findings:Cardiomediastinal silhouette is within normal limits.The lungs are clear.No pleural effusion or pneumothorax. Osseous structures are nonacute.No evidence of active tuberculosis.Impression:No acute cardiopulmonary process.This final report was electronically signed by Dr Wiley Velázquez MD 05/13/20177:49 PMDictated By: WILEY VELÁZQUEZDate: 05/13/2017 19:55[id number] 16:53:00 Test Item Value Reference Range Interpretation [...] ( 4 - SerumAlbumin)] EGFR if >60 [place] (test code mL/min/1.73m\\ = EGFRAA) S\\2 EGFR if Non- >60 Estimate d Glomerular [place] (test code mL/min/1.73m\\ Filtrat ion Rate (eGFR) [...] of c hronic kidney failure. [facility] (HEMOGRAM ONLY)2017-05-13 16:32:00 Test Item [...] WILL BE NOTED ON THE RE PORT. [facility]INAL[facility] WITH [id number] 18:25:00 Test Item Value Reference Range Interpretation Comments Color (test code = UCOLR) YELLOW Clarity (test code = UCLAR) CLEAR Glucose (test code = UGLUC) NEGATIVE NEGATIVE N Bilirubin (test code = UBILI) NEGATIVE NEGATIVE N Ketones (test code = UKET) NEGATIVE NEGATIVE N Specific [place] (test code = 1.025 1.005-1.030 A [...] None Seen N [facility] (LIVER)2016-10-09 18:21:00 Test Item Value [...] (test code = 0.1 mg/dl 0.0-1.1 IBIL) [facility]-[id number] 18:21:00 Test Item Value Reference Range Interpretation [...] mg/dl 8.4-10.2 = CALC) EGFR if >60 [place] (test code mL/min/1.73m\\ = EGFRAA) S\\2 EGFR if Non- >60 Estimate d Glomerular [place] (test code mL/min/1.73m\\ Filtrat ion Rate (eGFR) [...] of c hronic kidney failure. [facility] WITH AUTO [id number] 18:04:00 Test Item Value Reference Range Interpretation [...] Auto (test code = 0 NRBC_AUTO) AUTO [facility]
[2023-05-14 22:23] LABS: Absolute Lymphocytes (CBC) 3.7 K/uL (0.7-4.9); Hematocrit 38.3 % (36.0-45.0); Lymphocytes % 38.8 % (15.3-44.8); MCV 89.8 fL (80-100); Platelets 286 thou/uL (152-406); RBC Red Blood Cell Count 4.27 M/uL (3.86-4.86)
[2023-05-14] MEDS ORDERED: METOCLOPRAMIDE 10 MG/2mL INJ ONE (22:23)
[2023-05-14] MEDS ORDERED: MORPHINE 4 MG/ML SYR ONE (22:24)
[2023-05-14] MEDS ORDERED: FAMOTIDINE 20 MG/2 ML VIAL IV ONE (22:24)
[2023-05-14 22:26] LABS: Urine Bacteria 20-50 /HPF (<20); Urine Bilirubin NEGATIVE (Negative); Urine Blood 2+ (Negative); Urine Clarity Extremely Turbid (Clear); Urine Color Light-Yellow (Yellow); Urine Crystals Unidentified Few /HPF (None Seen); Urine Glucose NEGATIVE (Negative); Urine Mucus Slight /HPF (None Seen); Urine Protein NEGATIVE (Negative); Urine Urobilinogen Normal (Normal); Urine pH 5.5 (5.0-7.0)
[2023-05-14] MEDS ORDERED: KETOROLAC 30 MG/ML INJ ONE (22:34)
[2023-05-14] MEDS ORDERED: PROMETHAZINE 25 MG TABLET ONE (22:36)
[2023-05-14 22:39] LABS: Potassium 3.9 mEq/L (3.5-5.1)
[2023-05-14 22:40] LABS: Albumin 3.3 g/dL (3.4-5.0); Bilirubin Total 0.2 mg/dL (0.2-1.0); Protein, Total 7.1 g/dL (6.4-8.2)
--- NOTE | 2023-05-14 22:43 | EDPHYS ---
Physician Documentation [facility] Name: Hong Pace Age: 37 yrs Sex: Female : 1985 Arrival Date: 05/14/2023 Time: 21:44 Bed 20 Private MD: ED Physician Joe Baldwin HPI: 05/14 21:55 This 37 yrs old Female presents to ER via Unassigned with complaints of Abdominal Pain. cp 21:55 The patient presents with abdominal pain right lower quadrant. cp 21:55 Onset: The symptoms/episode began/occurred chronic, worse over past 2 days. cp 21:55 The symptoms do not radiate. Associated signs and symptoms: Pertinent negatives: blood cp in stools, constipation, diarrhea, dysuria, fever, vomiting. Patient reports history of multiple abdominal surgeries due to endometriosis. Currently sees a pain doctor who prescribed hydrocodone, but reports pain medications not working. 22:20 Patient requesting fentanyl or Dilaudid for pain medication. 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: 22:31 LMP N/A - Hysterectomy, Not km8 Historical: - Allergies: 22:26 Morphine; pf1 22:26 Toradol; pf1 22:27 Morphine; km8 22:27 Toradol; km8 22:27 Reglan; km8 - Home Meds: 22:27 levothyroxine 150 mcg cap 1 cap once daily [Active]; Premarin 0.3 mg Oral tab 1 tab km8 once daily [Active]; Vicodin 5/500 Oral as needed [Active]; - PMHx: 22:26 Endometriosis of vagina; melanoma; pf1 22:27 Endometriosis of vagina; melanoma; km8 - PSHx: 22:26 Appendectomy; section; Cholecystectomy; hysterectomy; Ovary removal; pf1 Thyroidectomy; 22:26 30 surgeries for endometriosis, has developed scar tissue; pf1 22:27 Appendectomy; section; Cholecystectomy; hysterectomy; Multiple abdominal km8 surgeries; Ovary removal; Thyroidectomy; - Immunization history:: Adult Immunizations up to date, Client reports receiving the 2nd dose of the Covid vaccine, Last tetanus immunization: < 10 years ago Flu vaccine is not up to date. - Social history:: Smoking status: Patient reports the use of cigarette tobacco products, denies chronic smoking, but will smoke occasionally, Patient uses alcohol, but reports only rare drinking. Patient/guardian denies using street drugs. ROS: 22:00 Constitutional: Negative for body aches, chills, fever, poor PO intake, cp 22:00 Cardiovascular: Negative for chest pain, edema, palpitations, cp 22:00 Respiratory: Negative for cough, shortness of breath, wheezing, 22:00 Abdomen/GI: Positive for abdominal pain, of the right lower quadrant, Negative for vomiting, diarrhea, constipation, 22:00 Back: Negative for radiated pain, 22:00 : Negative for urinary symptoms, vaginal bleeding, vaginal discharge, 22:00 All other systems are negative, Exam: 22:05 Constitutional: The patient appears in no acute distress, alert, awake, non-toxic, well cp developed, well nourished, obese, uncomfortable, 22:05 Head/Face: Normocephalic, atraumatic. cp 22:05 Eyes: Periorbital structures: appear normal, Conjunctiva: normal, no exudate, no injection, Sclera: no appreciated abnormality, Lids and lashes: appear normal, bilaterally, 22:05 ENT: External ear(s): are unremarkable, Nose: is normal, Mouth: Lips: moist, Oral mucosa: pink and intact, moist, Posterior pharynx: is normal, airway is patent, no erythema, no exudate, 22:05 Chest/axilla: Inspection: normal, 22:05 Cardiovascular: Rate: tachycardic, Rhythm: regular, 22:05 Respiratory: the patient does not display signs of respiratory distress, Respirations: normal, no use of accessory muscles, no retractions, labored breathing, is not present, Breath sounds: are clear throughout, no decreased breath sounds, no stridor, no wheezing, 22:05 Abdomen/GI: Inspection: obese Bowel sounds: active, all quadrants, Palpation: soft, in all quadrants, moderate abdominal tenderness, in the right lower quadrant, involuntary guarding, is not appreciated, 22:05 Back: CVA tenderness, is absent, 22:05 Neuro: Orientation: to person, place \T\ time. Mentation: is normal, Motor: moves all fours, strength is normal, Gait: is steady, Vital Signs: 21:47 BP 134 / 85; Pulse 109; Resp 18; Temp 97.5; Pulse Ox 100% on R/A; Weight 104.33 kg; pf1 Height 5 ft. 4 in. ; Pain 10/10; 22:15 BP 137 / 86; Pulse 88; Resp 16; Pulse Ox 100% on R/A; km8 21:47 Body Mass Index 39.48 (104.33 kg, 162.56 cm) pf1 21:47 Pain Scale: Adult pf1 [place] Coma Score: 22:27 Eye Response: spontaneous(4). Motor Response: obeys commands(6). Verbal Response: km8 oriented(5). Total: 15. MDM: 21:53 Patient medically screened. cp 22:30 Differential diagnosis: non-specific abd pain, Pyelonephritis, Ureterolithiasis, cp urinary tract infection. 22:40 Data reviewed: vital signs, nurses notes, lab test result(s). I considered the cp following discharge prescriptions or medication management in the emergency department Medications were administered in the Emergency Department. See MAR. 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 Special discussion: I discussed with the patient their frequent requests for pain medications. Instructions have been given, that in the best interests of the patient, further pain Rx's must come from the patient's PCP or a painter and body mechanic apprentice. 05/14 22:01 Order name: CBC with Diff; Complete Time: 22:35 cp 05/14 22:36 Interpretation: Normal except: MPV 7.0. cp 05/14 22:01 Order name: CMP cp 05/14 22:01 Order name: Lipase cp 05/14 22:01 Order name: Test, Urine; Complete Time: 22:35 cp 05/14 22:01 Order name: Urinalysis w/ reflexes; Complete Time: 22:35 cp 05/14 22:36 Interpretation: Normal except: [facility] Extremely Turbid; UBLD 2+; URBC 5-10; UBACT 20-50. cp 05/14 22:01 Order name: IV Saline Lock; Complete Time: 22:15 cp 05/14 22:01 Order name: Labs collected and sent; Complete Time: 22:15 cp Administered Medications: 22:17 Not Given (Physician Discretion): [id number] mg IVP once; over 1 to 2 minutes cp 22:18 Not Given (Patient ): morphineor iv 4 mg IVP once over 4 mins cp 22:25 Drug: Famotidine IVP 20 mg IVP once; dilute with 10 mL 0.9% NaCl; give over 2 minutes km8 Route: IVP; Site: right antecubital; 22:52 Follow up: Response: No adverse reaction km8 22:25 CANCELLED (not availablee): [id number] mg IVP once 8 22:25 Not Given (Patient Refused; sates she is allergic): mg IVP once km8 22:25 Drug: Promethazine PO 25 mg PO once Route: PO; km8 22:52 Follow up: Response: No adverse reaction 8 22:26 Drug: NS 0.9% IV 1000 ml IV at 1 bolus Per protocol; 1000 mL bolus Route: IV; Rate: 1 km8 bolus; Site: right antecubital; 22:52 Follow up: IV Status: pt requested to leave and IV be stopped; IV Intake: 100ml 8 22:40 CANCELLED (Physician Discretion): rocephin1 grams IV at calculated rate once; Given cp slow IV push per pharmacy instructions Disposition: 05/15 00:11 Co-signature as Attending Physician, oJe Baldwin MD I agree with the assessment sp4 and plan of care. I reviewed the patient's care provided by the Advanced Practice Provider and agree with the diagnosis and treatment plan. Disposition Summary: 05/14/23 22:42 Discharge Ordered Notes: Location: Home cp Problem: an acute exacerbation cp Symptoms: have improved cp Condition: Stable cp Diagnosis - Lower abdominal pain, unspecified cp - UTI/ Urinary tract infection, site not specified cp Followup: cp - With: Private Physician - When: 1 - 2 days - Reason: Recheck today's complaints Discharge Instructions: - Discharge Summary Sheet cp - Abdominal Pain, Adult cp - Urinary Tract Infection, Adult cp Forms: - Medication Reconciliation Form cp - Thank You Letter cp - Antibiotic Education cp - Prescription Opioid Use cp - Patient Portal Instructions cp - Leadership Thank You Letter cp Prescriptions: - nitrofurantoin macrocrystal 100 mg Oral capsule - take 1 capsule ORAL route 2 times per day for 7 days must administer with a cp meal/food; 14 capsule; Refills: 0, Product Selection Permitted - promethazine 25 mg Oral Tablet - take 1 tablet ORAL route every 6 hours As needed; 20 tablet; Refills: 0, cp Product Selection Permitted Signatures: Dispatcher [employer] EDCole Hendricks PA PA cp Finley, Pamala RN RN pf1 Joe Baldwin MD MD sp4 Mine Garcia RN RN km8 Corrections: (The following items were deleted from the chart) 05/14 22:25 22:18 Promethazine IVP 25 mg IVP once ordered. cp [facility] 22:27 Immunization history: Adult Immunizations up to date, [place] [id number] 22:27 Social history: Smoking status: unknown [place] [id number] 22:40 22:37 Rocephin IV 1 grams IV at calculated rate once; Given slow IV push per pharmacy cp instructions ordered. cp
--- NOTE | 2023-05-14 22:43 | ER ---
Nurse's Notes [facility] Name: Hong Pace Age: 37 yrs Sex: Female : 1985 Arrival Date: 05/14/2023 Time: 21:44 Bed 20 Private MD: Diagnosis: Lower abdominal pain, unspecified;UTI/ Urinary tract infection, site not specified Presentation: 05/14 21:47 Chief complaint: Patient states: Chronic RLQ pain of 10, worse in the past 2 days with pf1 nausea and vomiting. 21:47 Coronavirus screen: Vaccine status: Patient reports receiving the 2nd dose of the covid pf1 vaccine. Blip Client denies travel out of the [place] in the last 14 days. Client presents with at least one sign or symptom that may indicate coronavirus-19. Ebola Screen: Patient negative for fever greater than or equal to 101.5 degrees Fahrenheit, and additional compatible Ebola Virus Disease symptoms. Initial Sepsis Screen: Does the patient meet any 2 criteria? HR > 90 bpm. No. Patient's initial sepsis screen is negative. Does the patient have a suspected source of infection? No. Patient's initial sepsis screen is negative. Risk Assessment: Do you want to hurt yourself or someone else? Patient reports no desire to harm self or others. 21:47 Method Of Arrival: Ambulatory pf1 21:47 Acuity: [place] 3 pf1 22:10 Onset of symptoms was May 11, 2023. km8 [address]: 22:31 LMP N/A - Hysterectomy, Not 8 Historical: - Allergies: 22:26 Morphine; pf1 22:26 Toradol; pf1 22:27 Morphine; km8 22:27 Toradol; km8 22:27 Reglan; km8 - Home Meds: 22:27 levothyroxine 150 mcg cap 1 cap once daily [Active]; Premarin 0.3 mg Oral tab 1 tab km8 once daily [Active]; Vicodin 5/500 Oral as needed [Active]; - PMHx: 22:26 Endometriosis of vagina; melanoma; pf1 22:27 Endometriosis of vagina; melanoma; km8 - PSHx: 22:26 Appendectomy; section; Cholecystectomy; hysterectomy; Ovary removal; pf1 Thyroidectomy; 22:26 30 surgeries for endometriosis, has developed scar tissue; pf1 22:27 Appendectomy; section; Cholecystectomy; hysterectomy; Multiple abdominal km8 surgeries; Ovary removal; Thyroidectomy; - Immunization history:: Adult Immunizations up to date, Client reports receiving the 2nd dose of the Covid vaccine, Last tetanus immunization: < 10 years ago Flu vaccine is not up to date. - Social history:: Smoking status: Patient reports the use of cigarette tobacco products, denies chronic smoking, but will smoke occasionally, Patient uses alcohol, but reports only rare drinking. Patient/guardian denies using street drugs. Screenin:28 [facility] ED Fall Risk Assessment (Adult) History of falling in the last 3 months, pf1 including since admission No falls in past 3 months (0 pts) Confusion or Disorientation No (0 pts) Intoxicated or Sedated No (0 pts) Impaired Gait No (0 pts) Mobility Assist Device Used No (0 pt) Altered Elimination No (0 pt) Score/Fall Risk Level 0 - 2 = Low Risk Oriented to surroundings, Maintained a safe environment, Educated pt \T\ family on fall prevention, incl call for assistance when getting out of bed, Assessed \T\ reinforced patient's understanding of fall precautions, Provided non-skid footwear, Hourly rounding (assess needs \T\ fall precautionary measures) done, Used ambulatory aids as needed (educated on \T\ assisted with), Used gait belt as appropriate. Abuse screen: Denies threats or abuse. Nutritional screening: No deficits noted. Tuberculosis screening: No symptoms or risk factors identified. Assessment: 22:10 General: Appears in no apparent distress. comfortable, Behavior is calm, cooperative, km8 appropriate for age. 22:10 Pain: Complains of pain in right lower quadrant Pain currently is 10 out of 10 on a km8 pain scale. Pain began 2-3 days ago. Neuro: [place] Agitation-Sedation Scale (RASS): 0 - Alert and Calm Level of Consciousness is awake, alert, obeys commands, Oriented to person, place, time, situation. Cardiovascular: Denies chest pain, shortness of breath, Capillary refill < 3 seconds Patient's skin is warm and dry. Respiratory: Airway is patent Respiratory effort is even, unlabored, Respiratory pattern is regular, symmetrical. GI: Abdomen is non-distended, Bowel sounds present X 4 quads. Abdomen is tender to palpation in right lower quadrant Reports nausea, vomiting. : No signs and/or symptoms were reported regarding the genitourinary system. EENT: No signs and/or symptoms were reported regarding the EENT system. Derm: No signs and/or symptoms reported regarding the dermatologic system. Skin is intact, is healthy with good turgor, Skin is dry, Skin is pink, warm \T\ dry. normal, Skin temperature is warm. Musculoskeletal: No signs and/or symptoms reported regarding the musculoskeletal system. Range of motion: intact in all extremities. 22:47 General: pt requested to leave once told she would not be given any more medication at km8 this time; TAMMY Ramsay talked with pt about having a UTI and needing ABX, pt refused ABX here; pt left while discharge paperwork was being prepared; pt no longer in room when d/c paperwork and prescriptions brought to room. Vital Signs: 21:47 BP 134 / 85; Pulse 109; Resp 18; Temp 97.5; Pulse Ox 100% on R/A; Weight 104.33 kg; pf1 Height 5 ft. 4 in. ; Pain 10/10; 22:15 BP 137 / 86; Pulse 88; Resp 16; Pulse Ox 100% on R/A; km8 21:47 Body Mass Index 39.48 (104.33 kg, 162.56 cm) pf1 21:47 Pain Scale: Adult pf1 Yg Coma Score: 22:27 Eye Response: spontaneous(4). Motor Response: obeys commands(6). Verbal Response: km8 oriented(5). Total: 15. ED Course: 21:46 Patient arrived in ED. jj6 21:47 Patient has correct armband on for positive identification. Bed in low position. Call pf1 light in reach. 21:52 Cole Abbott PA is PHCP. cp 21:52 Joe Baldwin MD is Attending Physician. cp 22:03 Mine Garcia RN is Primary Nurse. km8 22:05 No provider procedures requiring assistance completed. Inserted saline lock: 22 gauge pf1 in right forearm, using aseptic technique. Blood collected. 22:10 Patient maintains SpO2 saturation greater than 95% on room air. km8 22:10 Client placed on continuous cardiac and pulse oximetry monitoring. NIBP monitoring km8 applied. Door closed. Noise minimized. Warm blanket given. 22:10 Arm band placed on right wrist. km8 22:15 CBC with Diff Sent. pf1 22:15 CMP Sent. pf1 22:15 Lipase Sent. pf1 22:15 Test, Urine Sent. pf1 22:15 Urinalysis w/ reflexes Sent. pf1 22:26 Triage completed. pf1 22:35 IV discontinued, intact, bleeding controlled, No redness/swelling at site. Pressure km8 dressing applied. 22:49 Provided Education on: n/a pt left prior to d/c teaching. km8 Administered Medications: 22:17 Not Given (Physician Discretion): [id number] mg IVP once; over 1 to 2 minutes cp 22:18 Not Given (Patient ): morphineor iv 4 mg IVP once over 4 mins cp 22:25 Drug: Famotidine IVP 20 mg IVP once; dilute with 10 mL 0.9% NaCl; give over 2 minutes km8 Route: IVP; Site: right antecubital; 22:52 Follow up: Response: No adverse reaction km8 22:25 CANCELLED (not availablee): [id number] mg IVP once km8 22:25 Not Given (Patient Refused; sates she is allergic): [id number] mg IVP once km8 22:25 Drug: Promethazine PO 25 mg PO once Route: PO; km8 22:52 Follow up: Response: No adverse reaction km8 22:26 Drug: NS 0.9% IV 1000 ml IV at 1 bolus Per protocol; 1000 mL bolus Route: IV; Rate: 1 km8 bolus; Site: right antecubital; 22:52 Follow up: IV Status: pt requested to leave and IV be stopped; IV Intake: 100ml km8 22:40 CANCELLED (Physician Discretion): rocephin1 grams IV at calculated rate once; Given cp slow IV push per pharmacy instructions Medication: 22:35 VIS not applicable for this client. km8 Intake: 22:52 IV: 100ml; Total: 100ml. km8 Outcome: 22:42 Discharge ordered by . cp 22:49 Discharged to home ambulatory, km8 22:49 Condition: good 22:49 Discharge instructions given to pt left while d/c paperwork was being prepared, but pt spoke with TAMMY Ramsay about what was going to be on her d/c paperwork Prescriptions given X pt left without 2 prescriptions 22:53 Patient left the ED. km8 Signatures: Cole Abbott PA PA cp Jeffries, Jennifer jj6 Bertha Ramirez RN RN pf1 Mine Garcia RN RN km8 Corrections: (The following items were deleted from the chart) 22: Immunization history: Adult Immunizations up to date, 8 : Social history: Smoking status: unknown [place] [id number]
[2023-05-14 23:04] VITALS: TEMP 97.5; O2SAT 100
[2023-05-14 23:05] VITALS: BP 137/86
== END 2023-05-14 22:53 | disposition home or self-care (01) ==
LOC: ER 21:44
DX: N39.0 Urinary tract infection, site not specified (principal)
CPT/HCPCS: 36415; 80053; 81001; 81025; 83690; 85025; 96374; 99285; J2765; Q0169

== ENCOUNTER → 2023-07-09 | Emergency (ER) | payer SELFPAY ==
[~2023-07-09] MED LIST: DIAZEPAM 5 MG TABLET ONE; HYDROMORPHONE HCL 1 MG/ML INJ ONE; NA CHLORIDE 0.9% 1,000 ML ONE; ONDANSETRON 4 MG/2 ML VIAL ONE
--- OUTSIDE RECORDS SUMMARY | 2023-07-09 21:35 | XMS REPORT | Clinical Summary ---
Author Name Unknown Organization [facility] Address [address] [place] [address] Care Team Providers Care Postal Service Clerk Name Role Phone Keila Valentine MD Primary Care Provider [phone] Navi Arango Unavailable Nuria Sahu MD Unavailable [phone] Allergies Active Allergy Reactions Criticality Noted Date Comments Ketorolac Itching Medium 07/19/2010 Medications Medication Sig Dispensed Refills Start Date End Date Status zolpidem (AMBIEN) 10 mg tablet 0 07/01/2006 Active citalopram (CeleXA) 40 mg tablet 0 03/10/2018 Active levothyroxine 175 mcg cap 0 02/07/2011 Active estrogens, conjugated (PREMARIN ORAL) Take by mouth daily. 0 04/22/2019 Active Active Problems Problem Noted Date Diagnosed Date Surgical site infection 10/05/2018 Encounter for other preprocedural examination Overview: EKG 09/08/2018 NSR NR 68 Obesity 09/08/2018 Overview: BMI Readings from Last 2 Encounters: 09/08/18 36.82 kg/m Hypothyroidism 09/08/2018 Malignant melanoma of other part of trunk 2018 Immunizations Name Administration Dates Next Due Influenza (IM) Preservative Free 04/05/2009 Influenza, Unspecified 03/30/2011 Tdap 03/30/2011 Surgical History Surgery Date Site/Laterality Comments APPENDECTOMY 07/01/2006 - 06/30/2007 EXPLORATORY LAPAROTOMY 07/01/2006 - 06/30/2007 Found the endometriosis HYSTERECTOMY 07/01/2014 - 06/30/2015 Still have right ovary THYROID SURGERY 07/01/2010 - 06/30/2011 completely removed CHOLECYSTECTOMY 07/01/2015 - 06/30/2016 SHOULDER SURGERY 07/01/1999 - 06/30/2000 Rotator cuff OVARIAN CYST SURGERY 08/29/2018 - 09/28/2018 Right WA EXCISION MAL LESION TRUNK/ARM/LEG 0.6-1.0 CM 09/23/2018 Abdomen/Right Procedure: EXCISION OF MALIGNANT LESION OF TRUNK, right epigastric; Surgeon: Keila Valentine MD; Location: [facility]; Service: SURG ONC - MELANOMA Medical History Medical History Date Comments Malignant melanoma of other part of trunk 09/03/2018 Renal stone 2007 multiple over th e past 12 years Uterine leiomyoma 2006 I have had a h ysterectomy Polycystic ovarian syndrome [address] have my right ovary and get cyst often on it. Endometriosis 2006 Multiple surgeri es Disorder of thyroid gland 2010 My thy roid has been removed Depressive disorder 2005 Anxiety 2005 Family History Medical History Relation Name Comments -Breast cancer Mother Kathy Odell in 2005 Relation Name Status Comments Mother Kathy Odell Social History Tobacco Use Types Packs/Day Years Used Date Smoking Tobacco: Former Cigarettes 0.3 10 0 07/01/2004 - 05/11/2017 Smokeless Tobacco: Never Alcohol Use Standard Drinks/Week Comments No 0 (1 standard drink = 0.6 oz pur e alcohol) Sex and Gender Information Value Date Recorded Sex Assigned at Not on file Gender Identity Not on file Sexual Orientation Not on file Obstetrics History Plan of Treatment Health Maintenance Due Date Last Done Comments COVID-19 Vaccination (#1) 01/11/1987 Advance Directives Latest Code Status on File Code Status Date Activated Date Inactivated Comments Full Code 10/04/2018 8:21 PM 10/08/2018 5:55 PM Code Status History Code Status Date Activated Date Inactivated Comments Full Code 09/23/2018 1:48 PM 09/23/2018 6:55 PM Care Teams Postal Service Clerk Relationship Specialty Start Date End Date Keila Valentine MD [address] [place] [address] PCP - General Surgical Oncology 08/26/18 Navi Arango FNP [address] [place] [address] PCP - External Primary Care Provider Family Practice 09/08/18 Nuria Sahu MD [address] [place] [address] Consulting Physician Dermatology 10/20/18
[2023-07-09 22:53] LABS: Specific Gravity > 1.030 (1.005-1.030); Urine Bacteria >50 /HPF (<20); Urine Bilirubin NEGATIVE (Negative); Urine Blood Negative (Negative); Urine Clarity Extremely Turbid (Clear); Urine Color Yellow (Yellow); Urine Glucose NEGATIVE (Negative); Urine Mucus 4+ /HPF (None Seen); Urine Protein 1+ (Negative); Urine RBC None Seen /HPF (None Seen); Urine Urobilinogen Normal (Normal)
[2023-07-09 22:56] LABS: Absolute Lymphocytes (CBC) 2.6 K/uL (0.7-4.9); Hematocrit 33.4 % (36.0-45.0); Lymphocytes % 36.8 % (15.3-44.8); MCV 88.8 fL (80-100); MPV 6.6 fL (7.6-11.3); Platelets 289 thou/uL (152-406); RBC Red Blood Cell Count 3.76 M/uL (3.86-4.86)
[2023-07-09 23:06] LABS: Albumin 3.3 g/dL (3.4-5.0); Bilirubin Total 0.1 mg/dL (0.2-1.0); Potassium 3.6 mEq/L (3.5-5.1); Protein, Total 6.8 g/dL (6.4-8.2)
--- NOTE | 2023-07-09 23:07 | RAD REPORT ---
EXAM DESCRIPTION: CTAbdomen Pelvis W Contrast - 07/09/2023 10:51 pm CLINICAL HISTORY: Abd pain;Abdominal distention COMPARISON: Abdomen Pelvis W Contrast dated 08/02/2022; Abdomen Pelvis W Contrast dated 04/12/2022 ; Abdomen Pelvis W Contrast dated 03/11/2022; Abdomen Pelvis W Contrast dated 01/20/2022 TECHNIQUE: CT of the abdomen and pelvis was performed. All CT scans are performed using dose optimization technique as appropriate and may include automated exposure control or mA/KV adjustment according to patient size. FINDINGS: Lower chest: No acute abnormality. Mild circumferential thickened distal esophagus which c ould reflect mild esophagitis. Liver: Hepatic steatosis. 9 mm low-density lesion right hepatic lobe is too small to characterize but statistically benign. Biliary: Cholecystectomy. Stomach: Partial gastrectomy. Duodenum: No significant focal abnormality. Pancreas: No significant abnormality. Spleen: No significant abnormality. Adrenal: No suspicious lesions. Kidney/ureter: No hydronephrosis. 5 mm left renal stone. No ureteral calculi. Retroperitoneum: No retroperitoneal adenopathy. Vascular: No aneurysm. Bowel: No significant focal abnormality. No appendicitis. Peritoneum: No ascites or free air. Small fat containing umbilical hernia. Bladder: Grossly unremarkable. Reproductive: No adnexal masses. Bones: No acute fracture. Other: n/a IMPRESSION: No acute intra-abdominal or pelvic finding. Nonobstructive left nephrolithiasis.
--- NOTE | 2023-07-09 23:25 | ER ---
Nurse's Notes [facility] Name: Hong Pace Age: 37 yrs Sex: Female : 1985 Arrival Date: 07/09/2023 Time: 21:33 Bed 13 Private MD: Diagnosis: Abdominal pain, unspecified Presentation: 07/09 21:40 Chief complaint: Patient states: sudden onset of abdominal pain, RLQ, with nausea and rv vomiting. denies diarrhea, fever. Coronavirus screen: At this time, the client does not indicate any symptoms associated with coronavirus-19. Ebola Screen: No symptoms or risks identified at this time. Initial Sepsis Screen: Does the patient meet any 2 criteria? No. Patient's initial sepsis screen is negative. Does the patient have a suspected source of infection? No. Patient's initial sepsis screen is negative. Risk Assessment: Do you want to hurt yourself or someone else? Patient reports no desire to harm self or others. Onset of symptoms was July 09, 2023. 21:40 Method Of Arrival: Ambulatory rv 21:40 Acuity: [place] 3 rv Triage Assessment: 21:41 General: Appears uncomfortable, Behavior is calm, cooperative. Pain: Complains of pain rv in right lower quadrant. Neuro: Level of Consciousness is awake, alert, obeys commands, Oriented to person, place, time, situation. Cardiovascular: Capillary refill < 3 seconds Patient's skin is warm and dry. Respiratory: Airway is patent Respiratory effort is even, unlabored. GI: Abdomen is round non-distended, Reports lower abdominal pain, nausea, vomiting. : No signs and/or symptoms were reported regarding the genitourinary system. Derm: Skin is intact. Historical: - Allergies: 21:41 Morphine; rv 21:41 Reglan; rv 21:41 Toradol; rv - PMHx: 21:41 Endometriosis of vagina; Hypothyroidism; melanoma; rv - PSHx: 21:41 30 surgeries for endometriosis; Appendectomy; section; Cholecystectomy; rv Multiple abdominal surgeries; hysterectomy; Thyroidectomy; Ovary removal; - Immunization history:: Adult Immunizations up to date. - Social history:: Smoking status: Patient denies any tobacco usage or history of. - Family history:: not pertinent. Screenin:44 [facility] ED Fall Risk Assessment (Adult) History of falling in the last 3 months, rv including since admission No falls in past 3 months (0 pts). [facility] ED Fall Risk Assessment (Adult) Score/Fall Risk Level 0 - 2 = Low Risk Oriented to surroundings, Maintained a safe environment, Educated pt \T\ family on fall prevention, incl call for assistance when getting out of bed, Assessed \T\ reinforced patient's understanding of fall precautions. Abuse screen: Denies threats or abuse. Denies injuries from another. Nutritional screening: No deficits noted. Tuberculosis screening: No symptoms or risk factors identified. Assessment: 21:49 General: Appears uncomfortable, Behavior is calm, cooperative. Pain: Complains of pain tm6 in right lower quadrant Pain currently is 10 out of 10 on a pain scale. Quality of pain is described as sharp, stabbing. Neuro: Level of Consciousness is awake, alert, obeys commands, Oriented to person, place, time, situation. Cardiovascular: Capillary refill < 3 seconds Patient's skin is warm and dry. Respiratory: Airway is patent Respiratory effort is even, unlabored, Respiratory pattern is regular, symmetrical. GI: Abdomen is round non-distended, Abd is soft X 4 quads Abdomen is tender to palpation in right lower quadrant Guarding noted in right lower quadrant Parent/caregiver reports the patient having vomiting, pain. : No signs and/or symptoms were reported regarding the genitourinary system. EENT: No signs and/or symptoms were reported regarding the EENT system. Derm: No signs and/or symptoms reported regarding the dermatologic system. Musculoskeletal: No signs and/or symptoms reported regarding the musculoskeletal system. 22:47 Reassessment: No changes from previously documented assessment. Patient and/or family tm6 updated on plan of care and expected duration. Pain level reassessed. Patient is alert, oriented x 3, equal unlabored respirations, skin warm/dry/pink. 23:19 Reassessment: Patient appears in no apparent distress at this time. Patient and/or tm6 family updated on plan of care and expected duration. Pain level reassessed. Patient is alert, oriented x 3, equal unlabored respirations, skin warm/dry/pink. Patient states symptoms have not improved. 23:40 Reassessment: Patient appears in no apparent distress at this time. No changes from tm6 previously documented assessment. Vital Signs: 21:40 BP 156 / 96; Pulse 82; Resp 18; Temp 98.3; Pulse Ox 100% ; Weight 104.33 kg; Height 5 rv ft. 4 in. ; 21:49 BP 143 / 94; Pulse 87; Pulse Ox 100% on R/A; Pain 10/10; tm6 22:46 BP 143 / 94; Pulse 85; Pulse Ox 100% on R/A; Pain 10/10; tm6 23:19 BP 139 / 83; Pulse 81; Pulse Ox 96% on R/A; Pain 9/10; tm6 23:40 BP 143 / 89; Pulse 87; Pulse Ox 96% on R/A; tm6 21:40 Body Mass Index 39.48 (104.33 kg, 162.56 cm) rv 21:49 Pain Scale: Adult tm6 22:46 Pain Scale: Adult tm6 23:19 Pain Scale: Adult tm6 ED Course: 21:37 Patient arrived in ED. kj1 21:39 Cole Disla MD is Attending Physician. wayne 21:41 Triage completed. rv 21:41 Arm band placed on right wrist. rv 21:44 Patient has correct armband on for positive identification. Client placed on continuous rv cardiac and pulse oximetry monitoring. NIBP monitoring applied. 21:44 No provider procedures requiring assistance completed. rv 21:49 Charissa Bravo, RN is Primary Nurse. tm6 22:53 CT Abd/Pelvis - IV Contrast Only In Process Unspecified. EDMS 07/10 00:03 Provided Education on: prescriptions. tm6 00:03 IV discontinued, intact, bleeding controlled, No redness/swelling at site. Pressure tm6 dressing applied. Administered Medications: 07/09 22:21 Drug: Diazepam PO 10 mg PO once Route: PO; tm6 22:46 Drug: HYDROmorphone IVP 1 mg IVP once; may repeat Route: IVP; Site: right forearm; tm6 22:46 Drug: Ondansetron IVP 4 mg IVP once; over 2 minutes, may repeat Route: IVP; Site: right tm6 forearm; 23:20 Drug: NS 0.9% IV 1000 ml IV at 1 bolus Per protocol; 1000 mL bolus Route: IV; Rate: 1 tm6 bolus; Site: right forearm; 07/10 00:03 Follow up: Response: No adverse reaction; IV Intake: 1000ml tm6 07/09 23:29 Drug: Ondansetron IVP 4 mg IVP once; over 2 minutes Route: IVP; Site: right forearm; tm6 23:29 Drug: HYDROmorphone IVP 1 mg IVP once Route: IVP; Site: right forearm; tm6 Medication: 21:44 VIS not applicable for this client. rv Intake: 07/10 00:03 IV: 1000ml; Total: 1000ml. tm6 Outcome: 07/09 23:24 Discharge ordered by MD. black 07/10 00:02 Discharged to home ambulatory, with family, tm6 Condition: stable Discharge instructions given to patient, Instructed on discharge instructions, follow up and referral plans. medication usage, Demonstrated understanding of instructions, follow-up care, medications, Prescriptions given X 2, 00:03 Patient left the ED. tm6 Signatures: Dispatcher [employer] EDCole Nixon MD MD cha Vicente, Ronaldo, RN RN Hiral Mckeon1 Charissa Bravo RN RN tm6 Corrections: (The following items were deleted from the chart) 07/09 21:43 21:41 PSHx: 30 surgeries for endometriosis; rv rv 21:43 21:41 PSHx: 30 surgeries for endometriosis; rv rv 21:43 21:41 PSHx: 30 surgeries for endometriosis; rv rv 21:43 21:41 PSHx: 30 surgeries for endometriosis; rv rv 21:43 21:41 PSHx: 30 surgeries for endometriosis; rv rv 21:43 21:41 PSHx: 30 surgeries for endometriosis; rv rv
--- NOTE | 2023-07-09 23:25 | EDPHYS ---
Physician Documentation [facility] Name: Hong Pace Age: 37 yrs Sex: Female : 1985 Arrival Date: 07/09/2023 Time: 21:33 Bed 13 Private MD: ED Physician Cole Disla HPI: 07/09 21:55 This 37 yrs old Female presents to ER via Ambulatory with complaints of RIGHT wayne SIDE PAIN. 21:55 The patient presents with abdominal pain right lower quadrant. Onset: The wayne symptoms/episode began/occurred just prior to arrival. The symptoms do not radiate. Associated signs and symptoms: none. The symptoms are described as crampy. Modifying factors: The symptoms are alleviated by nothing, remaining still, the symptoms are aggravated by movement, touching the area, walking. Severity of pain: At its worst the pain was moderate severe in the emergency department the pain is unchanged. The patient has experienced similar episodes in the past, multiple times. Historical: - Allergies: 21:41 Morphine; rv 21:41 Reglan; rv 21:41 Toradol; rv - PMHx: 21:41 Endometriosis of vagina; Hypothyroidism; melanoma; rv - PSHx: 21:41 30 surgeries for endometriosis; Appendectomy; section; Cholecystectomy; rv Multiple abdominal surgeries; hysterectomy; Thyroidectomy; Ovary removal; - Immunization history:: Adult Immunizations up to date. - Social history:: Smoking status: Patient denies any tobacco usage or history of. - Family history:: not pertinent. ROS: 21:55 Constitutional: Negative for fever, chills, and weight loss, Eyes: Negative for injury, wayne pain, redness, and discharge, ENT: Negative for injury, pain, and discharge, Neck: Negative for injury, pain, and swelling, Cardiovascular: Negative for chest pain, palpitations, and edema, Respiratory: Negative for shortness of breath, cough, wheezing, and pleuritic chest pain, Back: Negative for injury and pain, : Negative for injury, bleeding, discharge, and swelling, MS/Extremity: Negative for injury and deformity, Skin: Negative for injury, rash, and discoloration, Neuro: Negative for headache, weakness, numbness, tingling, and seizure, Psych: Negative for depression, anxiety, suicide ideation, homicidal ideation, and hallucinations, Allergy/Immunology: Negative for hives, rash, and allergies, Endocrine: Negative for neck swelling, polydipsia, polyuria, polyphagia, and marked weight changes, Hematologic/Lymphatic: Negative for swollen nodes, abnormal bleeding, and unusual bruising, 21:55 Abdomen/GI: Positive for abdominal pain, nausea, of the right lower quadrant, Exam: 21:55 Constitutional: This is a well developed, well nourished patient who is awake, alert, wayne and in no acute distress. Head/Face: Normocephalic, atraumatic. Eyes: Pupils equal round and reactive to light, extra-ocular motions intact. Lids and lashes normal. Conjunctiva and sclera are non-icteric and not injected. Cornea within normal limits. Periorbital areas with no swelling, redness, or edema. ENT: Nares patent. No nasal discharge, no septal abnormalities noted. Tympanic membranes are normal and external auditory canals are clear. Oropharynx with no redness, swelling, or masses, exudates, or evidence of obstruction, uvula midline. Mucous membranes moist. Neck: Trachea midline, no thyromegaly or masses palpated, and no cervical lymphadenopathy. Supple, full range of motion without nuchal rigidity, or vertebral point tenderness. No Meningismus. Chest/axilla: Normal chest wall appearance and motion. Nontender with no deformity. No lesions are appreciated. Cardiovascular: Regular rate and rhythm with a normal S1 and S2. No gallops, murmurs, or rubs. Normal PMI, no JVD. No pulse deficits. Respiratory: Lungs have equal breath sounds bilaterally, clear to auscultation and percussion. No rales, rhonchi or wheezes noted. No increased work of breathing, no retractions or nasal flaring. Back: No spinal tenderness. No costovertebral tenderness. Full range of motion. Skin: Warm, dry with normal turgor. Normal color with no rashes, no lesions, and no evidence of cellulitis. MS/ Extremity: Pulses equal, no cyanosis. Neurovascular intact. Full, normal range of motion. Neuro: Awake and alert, GCS 15, oriented to person, place, time, and situation. Cranial nerves II-XII grossly intact. Motor strength 5/5 in all extremities. Sensory grossly intact. Cerebellar exam normal. Normal gait. Psych: Awake, alert, with orientation to person, place and time. Behavior, mood, and affect are within normal limits. 21:55 Abdomen/GI: Inspection: distension, that is mild, Bowel sounds: normal, Palpation: mild abdominal tenderness, in the right lower quadrant, Liver: no appreciated palpable abnormalities, Hernia: not appreciated, Vital Signs: 21:40 BP 156 / 96; Pulse 82; Resp 18; Temp 98.3; Pulse Ox 100% ; Weight 104.33 kg; Height 5 rv ft. 4 in. ; 21:49 BP 143 / 94; Pulse 87; Pulse Ox 100% on R/A; Pain 10/10; tm6 22:46 BP 143 / 94; Pulse 85; Pulse Ox 100% on R/A; Pain 10/10; tm6 23:19 BP 139 / 83; Pulse 81; Pulse Ox 96% on R/A; Pain 9/10; tm6 23:40 BP 143 / 89; Pulse 87; Pulse Ox 96% on R/A; tm6 21:40 Body Mass Index 39.48 (104.33 kg, 162.56 cm) rv 21:49 Pain Scale: Adult tm6 22:46 Pain Scale: Adult tm6 23:19 Pain Scale: Adult tm6 MDM: 21:39 Patient medically screened. wayne 21:58 Differential diagnosis: diverticulitis, Endometriosis, non-specific abd pain, Peptic wayne Ulcer Disease, Peritonitis, Pyelonephritis, Ureterolithiasis, urinary tract infection. Data reviewed: vital signs, nurses notes, lab test result(s), radiologic studies, CT scan. Consideration of Admission/Observation Escalation of care including admission/observation considered. I considered the following discharge prescriptions or medication management in the emergency department Medications were administered in the Emergency Department. See MAR. Independent interpretation of the following test(s) in the Emergency Department CT Scan: My interpretation is ct abd/pelvis. Test considered but Not performed: Ultrasound no abd usg. Care significantly affected by the following chronic conditions: Obesity, endometrosis, lysis of adhesions many. Counseling: I had a detailed discussion with the patient and/or guardian regarding the historical points, exam findings, and any diagnostic results supporting the discharge/admit diagnosis, lab results, radiology results, the need for outpatient follow up, for definitive care, a family practitioner, an OB/Gyne specialist. 07/09 21:55 Order name: CBC with Diff; Complete Time: 23:24 wayne 07/09 21:55 Order name: CMP; Complete Time: 23:[address] [facility] 07/09 21:55 Order name: Lipase; Complete Time: 23:[address] [facility] 07/09 21:55 Order name: Urinalysis w/ reflexes; Complete Time: 23:[address] [facility] 07/09 21:55 Order name: CT Abd/Pelvis - IV Contrast Only; Complete Time: 23:[address] [facility] 07/09 21:55 Order name: IV Saline Lock; Complete Time: 22:[address] [facility] 07/09 21:55 Order name: Labs collected and sent; Complete Time: 22:[address] [facility] Administered Medications: 22:21 Drug: Diazepam PO 10 mg PO once Route: PO; tm6 22:46 Drug: HYDROmorphone IVP 1 mg IVP once; may repeat Route: IVP; Site: right forearm; tm6 22:46 Drug: Ondansetron IVP 4 mg IVP once; over 2 minutes, may repeat Route: IVP; Site: right tm6 forearm; 23:20 Drug: NS 0.9% IV 1000 ml IV at 1 bolus Per protocol; 1000 mL bolus Route: IV; Rate: 1 tm6 bolus; Site: right forearm; 07/10 00:03 Follow up: Response: No adverse reaction; IV Intake: 1000ml tm6 07/09 23:29 Drug: Ondansetron IVP 4 mg IVP once; over 2 minutes Route: IVP; Site: right forearm; tm6 23:29 Drug: HYDROmorphone IVP 1 mg IVP once Route: IVP; Site: right forearm; tm6 Disposition Summary: 07/09/23 23:24 Discharge Ordered Notes: Location: Home [facility] Problem: new [facility] Symptoms: have improved wayne Condition: Stable wayne Diagnosis - Abdominal pain, unspecified wayne Followup: [facility] - With: Private Physician - When: 2 - 3 days - Reason: Recheck today's complaints, Continuance of care, Re-evaluation by your physician Discharge Instructions: - Discharge Summary Sheet [facility] - Abdominal Pain, Adult wayne - Adhesions, [id number] [facility] - Laparoscopic Lysis of Abdominal Adhesions, Care After wayne Forms: - Medication Reconciliation Form [facility] - Thank You Letter [facility] - Antibiotic Education [facility] - Prescription Opioid Use [facility] - Patient Portal Instructions [facility] - Leadership Thank You Letter [facility] Prescriptions: - ondansetron 4 mg Oral Tablet,disintegrating - take 1 tablet ORAL route every 8 hours for 5 days as needed for nausea and wayne vomiting; 20 tablet; Refills: 0, Product Selection Permitted - Zofran 4 mg Oral Tablet - take 1 tablet ORAL route every 12 hours As needed; 20 tablet; Refills: 0, wayne Product Selection Permitted - dicyclomine 20 mg Oral tablet - take 1 tablet ORAL route 4 times per day; 28 tablet; Refills: 0, Product wayne Selection Permitted Signatures: Dispatcher [employer] Cole Juan MD MD cha Vicente, Ronaldo RN RN Charissa Hancock RN RN tm6 Corrections: (The following items were deleted from the chart) 21:43 21:41 PSHx: 30 surgeries for endometriosis; rv rv 21:43 21:41 PSHx: 30 surgeries for endometriosis; rv rv 21:43 21:41 PSHx: 30 surgeries for endometriosis; rv rv 21:43 21:41 PSHx: 30 surgeries for endometriosis; rv rv 21:43 21:41 PSHx: 30 surgeries for endometriosis; rv rv 21:43 21:41 PSHx: 30 surgeries for endometriosis; rv rv
[2023-07-10 04:07] VITALS: TEMP 98.3; O2SAT 96
[2023-07-10 04:18] VITALS: BP 143/89
== END ==
LOC: ER 21:33
DX: E03.9 Hypothyroidism, unspecified (principal); R10.31 Right lower quadrant pain; Z88.5 Allergy status to narcotic agent; Z88.8 Allergy status to other drugs, medicaments and biological substances
CPT/HCPCS: 36415; 74177; 80053; 81001; 83690; 85025; 96374; 96375; 99284; J1170; J2405; J7030; Q9967

== ENCOUNTER → 2023-07-17 | Emergency (ER) | payer SELFPAY ==
--- OUTSIDE RECORDS SUMMARY | 2023-07-17 21:33 | XMS REPORT | Clinical Summary ---
Author Name Unknown Organization [facility] Address [address] [place] [address] Care Team Providers Care Day [employer] Unit Leader Name Role Phone Keila Valentien MD Primary Care Provider [phone] Navi Arango Unavailable [phone] Nuria Sahu MD Unavailable [phone] Allergies Active Allergy Reactions Criticality Noted [...] OVARIAN CYST SURGERY 08/29/2018 - 09/28/2018 Right NM EXCISION MAL LESION TRUNK/ARM/LEG 0.6-1.0 CM 09/23/2018 [...] 1:48 PM 09/23/2018 6:55 PM Care Teams Day [employer] Unit Leader Relationship Specialty Start Date End Date Keila Valentine MD [address] [place] [address] PCP - General Surgical Oncology 08/26/18 Navi Arango FNP [address] [place] [address] PCP - External Primary Care Provider Family Practice 09/08/18 Nuria Sahu MD [address] [place] [address] Consulting Physician Dermatology 10/20/18
--- NOTE | 2023-07-17 22:28 | ER ---
Nurse's Notes [facility] Name: Hong Pace Age: 38 yrs Sex: Female : 1985 Arrival Date: 07/17/2023 Time: 21:30 Bed 7 Private MD: Diagnosis: Abdominal pain, Generalized Presentation: 07/17 21:44 Chief complaint: Patient states: pt reports right lower ABD pain starting 1 hour ago km8 with vomiting; denies fever/chills; hx of kidney stones. Coronavirus screen: Client denies travel out of the [place] in the last 14 days. Ebola Screen: No symptoms or risks identified at this time. Initial Sepsis Screen: Does the patient meet any 2 criteria? HR > 90 bpm. No. Patient's initial sepsis screen is negative. Does the patient have a suspected source of infection? No. Patient's initial sepsis screen is negative. Risk Assessment: Do you want to hurt yourself or someone else? Patient reports no desire to harm self or others. Onset of symptoms was July 17, 2023 at 20:45. 21:44 Method Of Arrival: Ambulatory km8 21:44 Acuity: [place] 3 km8 Triage Assessment: 21:45 General: Appears in no apparent distress. uncomfortable, Behavior is calm, cooperative, km8 appropriate for age. Pain: Complains of pain in right lower quadrant Pain currently is 10 out of 10 on a pain scale. Quality of pain is described as sharp, stabbing. EENT: No signs and/or symptoms were reported regarding the EENT system. Neuro: Level of Consciousness is awake, alert, obeys commands, Oriented to person, place, time, situation. Cardiovascular: Denies chest pain, shortness of breath, Capillary refill < 3 seconds Patient's skin is warm and dry. Respiratory: Airway is patent Respiratory effort is even, unlabored, Respiratory pattern is regular, symmetrical. GI: Reports lower abdominal pain, nausea, vomiting. : No signs and/or symptoms were reported regarding the genitourinary system. Derm: Skin is intact, is healthy with good turgor, Skin is dry, Skin is pink, warm \\T\\ dry. normal, Skin temperature is warm. Musculoskeletal: No signs and/or symptoms reported regarding the musculoskeletal system. Circulation, motion, and sensation intact. Range of motion: intact in all extremities. 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 - Social history:: Smoking status: Patient reports the use of cigarette tobacco products, 3 per day, Patient uses alcohol, but reports only rare drinking. Patient/guardian denies using street drugs. Screenin:18 [facility] ED Fall Risk Assessment (Adult) History of falling in the last 3 months, lg3 including since admission No falls in past 3 months (0 pts). Abuse screen: Denies threats or abuse. Denies injuries from another. Nutritional screening: No deficits noted. Tuberculosis screening: No symptoms or risk factors identified. Assessment: 21:57 General: Appears in no apparent distress. comfortable, Behavior is calm, cooperative. lg3 Pain: Complains of pain in right lower quadrant Pain does not radiate. Neuro: No deficits noted. [place] Agitation-Sedation Scale (RASS): 0 - Alert and Calm Level of Consciousness is awake, alert, obeys commands, Oriented to person, place, time, situation. Cardiovascular: No deficits noted. Denies chest pain, shortness of breath, Capillary refill < 3 seconds Clubbing of nail beds is absent JVD is absent Patient's skin is warm and dry. Respiratory: No deficits noted. Airway is patent Respiratory effort is even, unlabored, Respiratory pattern is regular, symmetrical. GI: Abdomen is round non-distended, Bowel sounds present X 4 quads. Abd is soft X 4 quads. : No deficits noted. No signs and/or symptoms were reported regarding the genitourinary system. EENT: No deficits noted. No signs and/or symptoms were reported regarding the EENT system. Derm: No deficits noted. No signs and/or symptoms reported regarding the dermatologic system. Skin is intact, is healthy with good turgor, Skin is dry, Skin is normal, Skin temperature is warm. Musculoskeletal: No deficits noted. No signs and/or symptoms reported regarding the musculoskeletal system. Circulation, motion, and sensation intact. Range of motion: intact in all extremities. 22:21 General: pt refusing all interventions at this time unless provider has order in place lg3 for pain medication. provider notified. per provider, no new orders will be given at this time. . 22:23 General: pt notified of no new orders and stated "if im not getting any pain lg3 medications then im just going to leave" . pt then removed BP cuff and pulse ox and walked out of unit. provider and charge notified. . Vital Signs: 21:47 BP 166 / 121; Pulse 105; Resp 16; Temp 97.8(TE); Pulse Ox 100% on R/A; Weight 106.59 kg km8 (R); Height 5 ft. 4 in. ; Pain 10/10; 21:47 Body Mass Index 40.34 (106.59 kg, 162.56 cm) km8 21:47 Pain Scale: Adult [facility] ED Course: 21:31 Patient arrived in ED. jj6 21:33 Cornel Li MD is Attending Physician. ec2 21:45 Triage completed. km8 21:45 Arm band placed on right wrist. km8 22:18 Patient has correct armband on for positive identification. Placed in gown. Bed in low lg3 position. Call light in reach. Side rails up X 1. Client placed on continuous cardiac and pulse oximetry monitoring. NIBP monitoring applied. Door closed. Noise minimized. Warm blanket given. 22:32 No provider procedures requiring assistance completed. Patient did not have IV access vc1 during this emergency room visit. 22:33 No provider procedures requiring assistance completed. Patient did not have IV access lg3 during this emergency room visit. Administered Medications: 22:30 Not Given (Patient Refused): [id number] mg IVP once; dilute with 10 mL 0.9% NaCl; vc1 give over 2 minutes 22:32 Not Given (Patient Refused): ns 0.9% 1000 ml IV at 1 bolus Per protocol; 1000 mL bolus vc1 22:32 Not Given (Patient Refused): ondansetron 4 mg IVP once; over 2 minutes vc1 Medication: 22:33 VIS not applicable for this client. vc1 Outcome: 22:28 Discharge ordered by . ec2 22:33 Discharged to home ambulatory, lg3 22:33 Condition: stable 22:34 Patient left the ED. lg3 Signatures: Lois Kumar RN RN lg3 Keila Cornejo jj6 Alejandra Soler RN RN vc1 Cornel Li MD MD ec2 Mine Garcia, [place] RN km8 Corrections: (The following items were deleted from the chart) 21:46 21:45 Allergies: Reglan; [facility] 21:46 21:45 Allergies: Morphine; [place] [id number] 22:21 22:18 General: Appears in no apparent distress. comfortable, Behavior is calm, lg3 cooperative, lg3 22:21 22:18 Pain: Complains of pain in right lower quadrant Pain does not radiate. lg3 lg3 22: 22:18 Neuro: No deficits noted. [place] Agitation-Sedation Scale (RASS): 0 - Alert and lg3 Calm Level of Consciousness is awake, alert, obeys commands, Oriented to person, place, time, situation, lg3 22:21 22:18 Cardiovascular: No deficits noted. Denies chest pain, shortness of breath, lg3 Capillary refill < 3 seconds Clubbing of nail beds is absent JVD is absent Patient's skin is warm and dry. lg3 22:21 22:18 Respiratory: No deficits noted. Airway is patent Respiratory effort is even, lg3 unlabored, Respiratory pattern is regular, symmetrical, lg3 22:21 22:18 GI: Abdomen is round non-distended, Bowel sounds present X 4 quads. Abd is soft X lg3 4 quads lg3 22:21 22:18 : No deficits noted. No signs and/or symptoms were reported regarding the lg3 genitourinary system. lg3 22:21 22:18 EENT: No deficits noted. No signs and/or symptoms were reported regarding the lg3 EENT system. lg3 22: 22:18 Derm: No deficits noted. No signs and/or symptoms reported regarding the lg3 dermatologic system. Skin is intact, is healthy with good turgor, Skin is dry, Skin is normal, Skin temperature is warm lg3 22:21 22:18 Musculoskeletal: No deficits noted. No signs and/or symptoms reported regarding lg3 the musculoskeletal system. Circulation, motion, and sensation intact. Range of motion: intact in all extremities, lg3
--- NOTE | 2023-07-17 22:28 | EDPHYS ---
Physician Documentation [facility] Name: Hong Pace Age: 38 yrs Sex: Female : 1985 Arrival Date: 07/17/2023 Time: 21:30 Bed 7 Private MD: ED Physician Cornel Li HPI: 07/17 22:23 This 38 yrs old Female presents to ER via Ambulatory with complaints of ec2 Abdominal Pain. 22:23 Patient arrives today for abdominal pain. States that she suffers from longstanding ec2 abdominal pain. States that she is having right-sided abdominal pain. Reports some associated nausea, denies any vomiting, denies diarrhea symptoms, reports no fevers, denies any urinary complaints. States that she has had a total hysterectomy, has a history of endometriosis. States that she has had previous adhesions, reports history of cholecystectomy as well.. 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 - Social history:: Smoking status: Patient reports the use of cigarette tobacco products, 3 per day, Patient uses alcohol, but reports only rare drinking. Patient/guardian denies using street drugs. ROS: 22:23 Constitutional: as per hpi ec2 Exam: 22:23 Constitutional: GEN: NAD Head: atraumatic Eyes: EOMI Ears: External ears are ec2 normal. CV: tachycardia LUNGS: no respiratory distress ABD: non-distended SKIN: no evidence of rashes MSK: no evidence of trauma NEURO: moves all extremities equally Vital Signs: 21:47 BP 166 / 121; Pulse 105; Resp 16; Temp 97.8(TE); Pulse Ox 100% on R/A; Weight 106.59 kg km8 (R); Height 5 ft. 4 in. ; Pain 10/10; 21:47 Body Mass Index 40.34 (106.59 kg, 162.56 cm) km8 21:47 Pain Scale: Adult km8 MDM: 21:45 Data reviewed: vital signs. ec2 21:45 ED course: Patient arrives today for abdominal pain. Examination shows slight ec2 tachycardia. I will obtain lab work, urine studies, CT imaging and reassess the patient. Currently considering appendicitis, chronic abdominal pain, patient with history of total hysterectomy so doubt any type of . . ED course: Patient stated that she will only agree to IV placement if she would receive IV narcotics for pain. She was instructed we would not haggle her care for specific medications. Patient discharged as she no longer wants to be seen, patient expressed understanding regarding risk and benefits.. 21:49 Patient medically screened. ec2 07/17 21:49 Order name: CBC with Diff ec2 07/17 21:49 Order name: CMP ec2 07/17 21:49 Order name: Lipase ec2 07/17 21:49 Order name: UAM ec2 07/17 21:49 Order name: PREGU ec2 07/17 21:49 Order name: CT Abd/Pelvis - IV Contrast Only ec2 Administered Medications: 22:30 Not Given (Patient Refused): bfzmjdtuji02 mg IVP once; dilute with 10 mL 0.9% NaCl; vc1 give over 2 minutes 22:32 Not Given (Patient Refused): ns 0.9% 1000 ml IV at 1 bolus Per protocol; 1000 mL bolus vc1 22:32 Not Given (Patient Refused): ondansetron 4 mg IVP once; over 2 minutes vc1 Disposition Summary: 07/17/23 22:28 Discharge Ordered Notes: Location: Home ec2 Condition: Stable ec2 Diagnosis - Abdominal pain, Generalized ec2 Followup: ec2 - With: Private Physician - When: - Reason: Recheck today's complaints Forms: - Medication Reconciliation Form ec2 - Thank You Letter ec2 - Antibiotic Education ec2 - Prescription Opioid Use ec2 - Patient Portal Instructions ec2 - Leadership Thank You Letter ec2 Signatures: Dispatcher [employer] Cornel Graves MD MD ec2 Mine Garcia RN RN km8 Alejandra Soler RN vc1 Corrections: (The following items were deleted from the chart) 21:46 21:45 Allergies: Reglan; [facility] 21:46 21:45 Allergies: Morphine; [facility] 22:26 22: Data reviewed: vital signs, ec2 ec2 : ED course: Patient arrives today for abdominal pain. Examination shows slight ec2 tachycardia. I will obtain lab work, urine studies, CT imaging and reassess the patient. Currently considering appendicitis, chronic abdominal pain, patient with history of total hysterectomy so doubt any type of .. ec2 : ED course: Patient arrives today for abdominal pain. Examination shows slight ec2 tachycardia. I will obtain lab work, urine studies, CT imaging and reassess the patient. Currently considering appendicitis, chronic abdominal pain, patient with history of total hysterectomy so doubt any type of .. ec2 : ED course: Patient arrives today for abdominal pain. Examination shows slight ec2 tachycardia. I will obtain lab work, urine studies, CT imaging and reassess the patient. Currently considering appendicitis, chronic abdominal pain, patient with history of total hysterectomy so doubt any type of .. ec2 : ED course: Patient arrives today for abdominal pain. Examination shows slight ec2 tachycardia. I will obtain lab work, urine studies, CT imaging and reassess the patient. Currently considering appendicitis, chronic abdominal pain, patient with history of total hysterectomy so doubt any type of .. ec2 :23 ED course: Patient arrives today for abdominal pain. Examination shows slight ec2 tachycardia. I will obtain lab work, urine studies, CT imaging and reassess the patient. Currently considering appendicitis, chronic abdominal pain, patient with history of total hysterectomy so doubt any type of .. ec2 22:32 21:49 IV Saline Lock ordered. ec2 vc1 22:32 21:49 Labs collected and sent ordered. ec2 vc1
[2023-07-18 04:56] VITALS: BP 166/121; TEMP 97.8; O2SAT 100
== END ==
LOC: ER 21:30
DX: R10.84 Generalized abdominal pain (principal)

== ENCOUNTER → 2023-08-27 | Emergency (ER) | payer SELFPAY ==
--- OUTSIDE RECORDS SUMMARY | 2023-08-27 21:29 | XMS REPORT | Clinical Summary ---
Author Name Unknown Organization [facility] Address [address] [place] [address] Care Team Providers Care [employer] Name Role Phone Keila Valentine MD Primary Care Provider [phone] Navi Arango Unavailable [phone] Nuria Sahu MD Unavailable [phone] Allergies Active Allergy Reactions Criticality Noted [...] melanoma of other part of trunk 2018 Encounters Date Type Department Care Team Description 08/19/2023 Orders Only [facility] [address] [facility] [address], [address]th [place] [address] Viktoriya Wright, RN Personal history of malignant melanoma of skin (Primary Dx) after 08/27/2022 Immunizations Name Administration Dates Next Due Influenza [...] OVARIAN CYST SURGERY 08/29/2018 - 09/28/2018 Right IN EXCISION MAL LESION TRUNK/ARM/LEG 0.6-1.0 CM 09/23/2018 [...] on file Obstetrics History Plan of Treatment Upcoming Encounters Date Type Department Care Team Description 11/19/2023 1:45 PM CDT Follow-Up [facility] Main Bldg, [address]th [address] [place], [place] [phone] Lisbeth Shannon MD [address] [place] [phone] Health Maintenance Due Date Last Done Comments COVID-19 Vaccination (#1) 01/11/1987 Advance Directives Latest Code Status on File Code Status Date Activated Date Inactivated Comments Full Code 10/04/2018 8:21 PM 10/08/2018 5:55 PM Code Status History Code Status Date Activated Date Inactivated Comments Full Code 09/23/2018 1:48 PM 09/23/2018 6:55 PM Care Teams [employer] Relationship Specialty Start Date End Date Keila Valentine MD [address] [place] [id number] PCP - General Surgical Oncology 08/26/18 Navi Arango FNP [address] [place] [address] PCP - External Primary Care Provider Family Practice 09/08/18 Nuria Sahu MD [address] [place] [phone] Consulting Physician Dermatology 10/20/18
--- NOTE | 2023-08-27 21:58 | EDPHYS ---
Physician Documentation [facility] Name: Hong Pace Age: 38 yrs Sex: Female : 1985 Arrival Date: 08/27/2023 Time: 21:27 Bed IW1 Private MD: ED Physician Joe Baldwin HPI: 08/27 23:37 This 38 yrs old Female presents to ER via Ambulatory with complaints of Abdominal Pain. 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 kb States she has had nausea and vomiting since pain began. Reports this pain feels similar to chronic pain she has had in the past. . 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 - Social history:: Smoking status: Patient reports the use of cigarette tobacco products, smokes one-half pack cigarettes per day. ROS: 23:37 Constitutional: Negative for fever, chills, and weight loss, kb 23:37 Abdomen/GI: Positive for abdominal pain, nausea and vomiting, 23:37 All other systems are negative, Exam: 23:37 Constitutional: This is a well developed, well nourished patient who is awake, alert, kb and in no acute distress. Head/Face: Normocephalic, atraumatic. ENT: Moist Mucous membranes Cardiovascular: Regular rate Respiratory: Respirations even and unlabored. No increased work of breathing. Talking in full sentences Skin: Warm, dry with normal turgor. Normal color. MS/ Extremity: Pulses equal, no cyanosis. Neurovascular intact. Full, normal range of motion. Neuro: Awake and alert, GCS 15, oriented to person, place, time, and situation. Moves all extremities. Normal gait. 23:37 Abdomen/GI: Inspection: abdomen appears normal, Bowel sounds: normal, Palpation: soft, in all quadrants, moderate abdominal tenderness, in the right lower quadrant, Vital Signs: 21:37 BP 137 / 103; Pulse 130; Resp 18 S; Temp 97.8(TE); Pulse Ox 95% on R/A; Weight 108.86 as6 kg (R); Height 5 ft. 4 in. (R); Pain 9/10; 21:37 Body Mass Index 41.20 (108.86 kg, 162.56 cm) as6 21:37 Pain Scale: Adult as6 MDM: 21:38 Patient medically screened. kb 23:37 Differential diagnosis: appendicitis, Endometriosis, non-specific abd pain, kb Ureterolithiasis, urinary tract infection, chronic pain. Data reviewed: vital signs, nurses notes. ED course: Pt elected to leave from lobby prior to diagnostic exams or treatment. Administered Medications: 21:59 Not Given (PT DC): ns 0.9% 1000 ml IV at 1 bolus Per protocol; 1000 mL bolus ap3 21:59 Not Given (PT DC): dbsvzotobv88 mg IVP once; dilute with 10 mL 0.9% NaCl; give over 2 ap3 minutes 21:59 Not Given (pt dcc): ondansetron 4 mg IVP once; over 2 minutes ap3 21:59 Not Given (pt dcc): olhcwoyqtvlwfyw38.5 mg IVP once ap3 Disposition Summary: 08/27/23 21:57 Discharge Ordered Notes: Location: Home kb Condition: Stable kb Diagnosis - Lower abdominal pain, unspecified kb Followup: kb - With: Emergency Department - When: As needed - Reason: Worsening of condition Followup: kb - With: Private Physician - When: 2 - 3 days - Reason: Recheck today's complaints, Continuance of care, Re-evaluation by your physician Discharge Instructions: - Discharge Summary Sheet kb - Abdominal Pain, Adult, Nakv-gv-Tufl kb Forms: - Medication Reconciliation Form kb - Thank You Letter kb - Antibiotic Education kb - Prescription Opioid Use kb - Patient Portal Instructions kb - Leadership Thank You Letter kb Addendum: 08/28/2023 22:28 Co-signature as Attending Physician, Joe Baldwin MD I agree with the assessment s p4 and plan of care. I reviewed the patient's care provided by the Advanced Practice Provider and agree with the diagnosis and treatment plan. Signatures: Dispatcher [employer] EDTrinity Be FNP-Gerald ANESTHESIOLOGIST ATTENDING-Uday Shah RN RN as6 Joe Baldwin MD MD sp4 Magdalene Ferrari RN ap3 Corrections: (The following items were deleted from the chart) 08/27 21:40 21:39 PSHx: 30 surgeries for endometriosis; as6 as6 21:59 21:47 IV Saline Lock ordered. john paul ap3 22:00 21:47 Labs collected and sent ordered. john paul ap3
--- NOTE | 2023-08-27 21:58 | ER ---
Nurse's Notes [facility] Name: Hong Pace Age: 38 yrs Sex: Female : 1985 Arrival Date: 08/27/2023 Time: 21:27 Bed IW1 Private MD: Diagnosis: Lower abdominal pain, unspecified Presentation: 08/27 21:37 Chief complaint: Patient states: abdominal pain and vomiting that started today. as6 Coronavirus screen: At this time, the client does not indicate any symptoms associated with coronavirus-19. Ebola Screen: No symptoms or risks identified at this time. Initial Sepsis Screen: Does the patient meet any 2 criteria? No. Patient's initial sepsis screen is negative. Does the patient have a suspected source of infection? No. Patient's initial sepsis screen is negative. Risk Assessment: Do you want to hurt yourself or someone else? Patient reports no desire to harm self or others. Onset of symptoms was August 27, 2023. 21:37 Method Of Arrival: Ambulatory as6 21:37 Acuity: [place] 3 as6 Triage Assessment: 21:40 General: Appears uncomfortable, Behavior is calm, cooperative. Pain: Complains of pain as6 in abdomen. GI: Reports lower abdominal pain, upper abdominal pain, nausea, vomiting. 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 - Social history:: Smoking status: Patient reports the use of cigarette tobacco products, smokes one-half pack cigarettes per day. Screenin:53 [facility] ED Fall Risk Assessment (Adult) Score/Fall Risk Level 0 - 2 = Low Risk. Abuse as6 screen: Denies threats or abuse. Denies injuries from another. Nutritional screening: No deficits noted. Tuberculosis screening: No symptoms or risk factors identified. Assessment: 21:58 GI: ap3 Vital Signs: 21:37 BP 137 / 103; Pulse 130; Resp 18 S; Temp 97.8(TE); Pulse Ox 95% on R/A; Weight 108.86 as6 kg (R); Height 5 ft. 4 in. (R); Pain 9/10; 21:37 Body Mass Index 41.20 (108.86 kg, 162.56 cm) as6 21:37 Pain Scale: Adult as6 ED Course: 21:32 Patient arrived in ED. gm2 21:38 Trinity Houser FNP-C [facility]. kb 21:38 Joe Baldwin MD is Attending Physician. kb 21:39 Triage completed. as6 21:40 Arm band placed on. as6 21:53 Bed in low position. Call light in reach. as6 21:58 Provided Education on: discharge instructions. ap3 21:58 No provider procedures requiring assistance completed. Patient did not have IV access ap3 during this emergency room visit. Administered Medications: 21:59 Not Given (PT DC): ns 0.9% 1000 ml IV at 1 bolus Per protocol; 1000 mL bolus ap3 21:59 Not Given (PT DC): wqbkfevhuw36 mg IVP once; dilute with 10 mL 0.9% NaCl; give over 2 ap3 minutes 21:59 Not Given (pt dcc): ondansetron 4 mg IVP once; over 2 minutes ap3 21:59 Not Given (pt dcc): nehhaojfengbmfx41.5 mg IVP once ap3 Medication: 21:53 VIS not applicable for this client. as6 Outcome: 21:57 Discharge ordered by . kb 21:58 Discharged to home ambulatory, ap3 21:58 Condition: good 21:58 Discharge instructions given to patient, Instructed on discharge instructions, follow up and referral plans. Demonstrated understanding of instructions, follow-up care, 22:00 Patient left the ED. ap3 Signatures: Trinity Houser FNP-C FNP-Ckb Prokisch, Amanda, RN RN ap3 Uday Smith RN RN as6 Juana Ordoñez gm2 Corrections: (The following items were deleted from the chart) 21:40 21:39 PSHx: 30 surgeries for endometriosis; as6 as6
[2023-08-27 22:11] VITALS: BP 137/103; TEMP 97.8; O2SAT 95
== END ==
LOC: ER 21:27
DX: R10.30 Lower abdominal pain, unspecified (principal)

== ENCOUNTER 2024-01-31 22:59 | Emergency (ER) | payer SELFPAY ==
--- OUTSIDE RECORDS SUMMARY | 2024-01-31 23:01 | XMS REPORT | Clinical Summary ---
Author Name Unknown Organization [facility] Address [address] [place] [address] Care Team Providers Care Med Spec Name Role Phone Keila Valentine MD Primary Care Provider [phone] Navi Arango Unavailable [phone] Nuria Sahu MD Unavailable [phone] Allergies Active Allergy Reactions Criticality Noted Date Comments Ketorolac Itching Medium 07/19/2010 Medications Medication Sig Dispensed Refills Start Date End Date Status zolpidem (AMBIEN) 10 mg tablet 07/01/2006 Active citalopram (CeleXA) 40 mg tablet 03/10/2018 Active levothyroxine 175 mcg cap 02/07/2011 Active estrogens, conjugated (PREMARIN ORAL) Take by mouth daily. 04/22/2019 Active Active Problems Problem Noted Date Diagnosed Date Surgical site infection 10/05/2018 Encounter for other preprocedural examination Overview: EKG 09/08/2018 NSR NR 68 Obesity 09/08/2018 Overview: BMI Readings from Last 2 Encounters: 09/08/18 36.82 kg/m Hypothyroidism 09/08/2018 Malignant melanoma of other part of trunk 2018 Encounters Date Type Department Care Team Description 08/19/2023 Orders Only [facility] [address] [facility] Main Bldg, [address]th [place] [phone] Viktoriya Wright RN Personal history of malignant melanoma of skin (Primary Dx) after 01/31/2023 Immunizations Name Administration Dates Next Due Influenza [...] OVARIAN CYST SURGERY 08/29/2018 - 09/28/2018 Right [place] EXCISION MAL LESION TRUNK/ARM/LEG 0.6-1.0 CM 09/23/2018 Abdomen/Right Procedure: EXCISION OF MALIGNANT LESION OF TRUNK, right epigastric; Surgeon: Keila Valentine MD; Location: [facility]; Service: SURG ONC - MELANOMA Medical History Medical History Date Comments Malignant melanoma of other part of trunk 09/03/2018 Renal stone 2007 multiple over th e past 12 years Uterine leiomyoma 2007 I have had a h ysterectomy Polycystic ovarian syndrome [address] ill have my right ovary and get cyst often on it. Endometriosis 2007 Multiple surgeri es Disorder of thyroid gland 2010 My thy roid has been removed Depressive disorder 2005 Anxiety 2005 Family History Medical History Relation Name Comments -Breast cancer Mother Kathy Odell in 2005 Relation Name Status Comments Mother Kathy Odell Social History Tobacco Use Types Packs/Day Years Used Date Smoking Tobacco: Former Cigarettes 0.3 12.9 0 07/01/2004 - 05/11/2017 Smokeless Tobacco: Never Alcohol Use Standard Drinks/Week Comments No 0 (1 standard drink = 0.6 oz pur e alcohol) Sex and Gender Information Value Date Recorded Sex Assigned at Not on file Gender Identity Not on file Sexual Orientation Not on file Obstetrics History Plan of Treatment Health Maintenance Due Date Last Done Comments COVID-19 Vaccine (2022-2 4 season) 2023 Influenza Vaccine 03/01/2024 04/19/2015, , 04/05/2009 Advance Directives * Full Code (Latest Code Status on File) Date Activated Date Inactivated Comments 10/04/2018 8:21 PM 10/08/2018 5:55 PM * Full Code Date Activated Date Inactivated Comments 09/23/2018 1:48 PM 09/23/2018 6:55 PM Care Teams Med Spec Relationship Specialty Start Date End Date Keila Valentine MD [address] [place] [address] [email or web address] PCP - General Surgical Oncology 08/26/18 Navi Arango FNP [address] [place] [address] PCP - External Primary Care Provider Family Practice 09/08/18 Nuria Sahu MD [address] [place] [address] [email or web address] [email or web address] Physician Dermatology 10/20/18
[2024-02-01] MEDS ORDERED: ONDANSETRON 4 MG/2 ML VIAL ONE (00:22)
[2024-02-01] MEDS ORDERED: NA CHLORIDE 0.9% 1,000 ML ONE (00:23)
[2024-02-01] MEDS ORDERED: FENTANYL CITR 100 MCG/2 ML ONE (00:23)
[2024-02-01 00:33] LABS: Absolute Eosinophils 0.1 K/uL (0-0.5); Absolute Lymphocytes (CBC) 2.7 K/uL (0.7-4.9); Absolute Monocytes 0.4 K/uL (0.1-1.3); Absolute Neutrophil 4.1 K/uL (1.8-8.0); Basophils % 0.6 % (0-1.3); Eosinophils % 1.9 % (0-4.4); Hematocrit 38.2 % (36.0-45.0); Lymphocytes % 35.9 % (15.3-44.8); MCV 88.3 fL (80-100); MPV 6.9 fL (7.6-11.3); Monocytes % 5.9 % (3.3-12.3); Neutrophils % 55.7 % (41.7-73.7); Nucleated Red Blood Cells % 0.2 % (0-0); Platelets 253 thou/uL (152-406); RBC Red Blood Cell Count 4.32 M/uL (3.86-4.86); Red Cell Distribution Width 13.8 % (12.1-15.2)
[2024-02-01 00:44] LABS: Specific Gravity > 1.030 (1.005-1.030)
[2024-02-01 00:52] LABS: Albumin 3.6 g/dL (3.4-5.0); Albumin/Globulin Ratio 0.9 (1.1-1.8); Anion Gap 7.2 mEq/L (5.0-15.0); Bilirubin Total 0.2 mg/dL (0.2-1.0); Globulin 3.9 g/dL (2.3-3.5); Potassium 3.2 mEq/L (3.5-5.1); Protein, Total 7.5 g/dL (6.4-8.2)
[2024-02-01] MEDS ORDERED: HYDROMORPHONE HCL 0.5 MG/0.5 ML INJ ONE (00:55)
[2024-02-01 01:04] LABS: Calcium Oxalate Crystals- Ur Few /HPF (None Seen); Specific Gravity > 1.030 (1.005-1.030); Sqamous Epithelial <5 /HPF (None Seen); Urine Bacteria None Seen /HPF (<20); Urine Bilirubin NEGATIVE (Negative); Urine Blood Negative (Negative); Urine Clarity Extremely Turbid (Clear); Urine Color Yellow (Yellow); Urine Culture Reflex Order NOT NEEDED; Urine Glucose NEGATIVE (Negative); Urine Ketones NEGATIVE (Negative); Urine Microscopic Reflex YN ORDER UMIC; Urine Mucus 4+ /HPF (None Seen); Urine Nitrite NEGATIVE (Negative); Urine Protein 1+ (Negative); Urine RBC None Seen /HPF (None Seen); Urine Urobilinogen Normal (Normal); Urine WBC <5 /HPF (<5)
--- NOTE | 2024-02-01 01:19 | EDPHYS ---
Physician Documentation [facility] Name: Hong Pace Age: 38 yrs Sex: Female : 1985 Arrival Date: 01/31/2024 Time: 22:59 Bed 13 Private MD: ED Physician Joe Baldwin HPI: 01/30 23:53 This 38 yrs old Female presents to ER via Ambulatory with complaints of Abdominal Pain. sb4 23:53 The patient complains of pain in the right low back. The pain radiates to the right sb4 lower quadrant. Onset: The symptoms/episode began/occurred just prior to arrival. Modifying factors: The symptoms are alleviated by nothing. the symptoms are aggravated by nothing. Associated signs and symptoms: Pertinent positives: nausea, vomiting, Pertinent negatives: dysuria, fever, urinary frequency, hematuria. The patient has experienced similar episodes in the past, a few times. Historical: - Allergies: 23:33 Morphine; tl4 23:33 Reglan; tl4 23:33 Toradol; tl4 - Home Meds: 23:33 levothyroxine 150 mcg cap 1 cap once daily [Active]; Premarin 0.3 mg Oral tab 1 tab tl4 once daily [Active]; Vicodin 5/500 Oral as needed [Active]; - PMHx: 23:33 Endometriosis of vagina; Hypothyroidism; melanoma; tl4 - PSHx: 23:33 30 surgeries for endometriosis; Appendectomy; section; Cholecystectomy; tl4 hysterectomy; Multiple abdominal surgeries; Ovary removal; Thyroidectomy; - Immunization history:: Adult Immunizations unknown. - Infectious Disease History:: Denies. - Social history:: Smoking status: Patient reports the use of cigarette tobacco products, 3 cigarettes/day. ROS: 23:53 Constitutional: Negative for fever, chills, and weight loss, sb4 23:53 Abdomen/GI: Positive for abdominal pain, nausea and vomiting, 23:53 Back: Positive for pain at rest, flank pain, 23:53 All other systems are negative, Exam: 23:53 Head/Face: Normocephalic, atraumatic. Eyes: Extra-ocular motions intact. Periorbital sb4 areas with no swelling, redness, or edema. ENT: Mucous membranes moist. Cardiovascular: Regular rate and rhythm with a normal S1 and S2. Respiratory: Lungs have equal breath sounds bilaterally, clear to auscultation and percussion. No rales, rhonchi or wheezes noted. No increased work of breathing, no retractions or nasal flaring. Abdomen/GI: Soft, non-tender, no distension. Skin: Warm, dry with normal turgor. Normal color with no rashes, no lesions, and no evidence of cellulitis. 23:53 Constitutional: The patient appears alert, awake, uncomfortable, 23:53 Back: CVA tenderness, is noted on the right, Vital Signs: 23:31 BP 149 / 89; Pulse 93; Resp 18; Temp 96.6(O); Pulse Ox 98% on R/A; Weight 99.79 kg; tl4 Height 5 ft. 4 in. ; Pain 9/10; 01/31 00:33 BP 108 / 85; Pulse 83; Resp 17; Pulse Ox 98% ; jj7 01:21 BP 107 / 81; Pulse 80; Resp 17; Pulse Ox 100% ; Pain 0/10; jj7 01/30 23:31 Body Mass Index 37.76 (99.79 kg, 162.56 cm) 4 01/30 23:31 Pain Scale: Adult tl4 01:21 Pain Scale: Adult jj7 MDM: 01/30 23:08 Patient medically screened. 4 01/31 01:17 Data reviewed: vital signs, nurses notes, lab test result(s), and as a result, I will sb4 discharge patient. Counseling: I had a detailed discussion with the patient and/or guardian regarding the historical points, exam findings, and any diagnostic results supporting the discharge/admit diagnosis, lab results, to return to the emergency department if symptoms worsen or persist or if there are any questions or concerns that arise at home. ED course: patient has a family emergency and has to leave prior to CT results. 01/30 23:38 Order name: CBC with Diff; Complete Time: 00:53 sb4 01/30 23:38 Order name: CMP; Complete Time: 00:52 sb4 01/30 23:38 Order name: Lipase; Complete Time: 00:52 sb4 01/30 23:38 Order name: Test, Urine; Complete Time: 00:46 sb4 01/30 23:38 Order name: Urinalysis w/ reflexes; Complete Time: 01:07 sb4 01/31 00:48 Order name: CT Abd/Pelvis - IV Contrast Only sb4 01/30 23:38 Order name: IV Saline Lock; Complete Time: 00:31 sb4 01/30 23:38 Order name: Labs collected and sent; Complete Time: : sb4 Administered Medications: 00:33 Drug: NS 0.9% IV 1000 ml IV at 1 bolus Per protocol; 1000 mL bolus Route: IV; Rate: 1 jj7 bolus; Site: left antecubital; 01:23 Follow up: IV Status: Completed infusion j 00:33 Drug: fentaNYL (PF) IVP 50 mcg IVP once Route: IVP; Site: left antecubital; j 00:58 Follow up: Response: Pain is unchanged, physician notified 00:33 Drug: Ondansetron IVP 4 mg IVP once; over 2 minutes Route: IVP; Site: left antecubital; j7 00:58 Follow up: Response: Nausea is decreased j 00:58 Drug: HYDROmorphone IVP 0.5 mg IVP once Route: IVP; Site: left antecubital; j7 01:19 Follow up: Response: Marked relief of symptoms; Pain is decreased j7 Disposition: 06:27 Co-signature as Attending Physician, Joe Baldwin MD I agree with the assessment sp4 and plan of care. I reviewed the patient's care provided by Advanced Practice Provider \T\ agree w/ the diagnosis \T\ care plan. I personally saw the pt \T\ performed a substantive portion of the visit, incldng all aspects of the (History/Exam/Medical Decision Making). Disposition Summary: 02/01/24 01:18 Discharge Ordered Notes: Location: Home sb4 Problem: new sb4 Symptoms: have improved sb4 Condition: Stable sb4 Diagnosis - Unspecified renal colic sb4 Followup: sb4 - With: Emergency Department - When: As needed - Reason: Trouble breathing, Worsening of condition Discharge Instructions: - Discharge Summary Sheet sb4 - Renal Colic, [id number] sb4 Forms: - Patient Portal Instructions sb4 - Leadership Thank You Letter sb4 Signatures: Dispatcher MedHoNohemy Nelson RN RN Gracy Poole PA-C PA-C sb4 Joe Baldwin MD MD sp4 Stu Peck RN RN tl4 Corrections: (The following items were deleted from the chart) 01/30 23:34 23:33 PSHx: 30 surgeries for endometriosis; tl4 tl4 23:34 23:33 PSHx: 30 surgeries for endometriosis; tl4 tl4 23:34 23:33 PSHx: 30 surgeries for endometriosis; tl4 tl4 23:34 23:33 PSHx: 30 surgeries for endometriosis, has developed scar tissue; tl4 tl4
--- NOTE | 2024-02-01 01:19 | ER ---
Nurse's Notes [facility] Name: Hong Pace Age: 38 yrs Sex: Female : 1985 Arrival Date: 01/31/2024 Time: 22:59 Bed 13 Private MD: Diagnosis: Unspecified renal colic Presentation: 01/30 23:31 Chief complaint: Patient states: Pt c/o right flank pain that radiates into right side tl4 abdomen, nausea, vomiting, and urinary frequency x 90 min. Pt has history of kidney stones. Coronavirus screen: At this time, the client does not indicate any symptoms associated with coronavirus-19. Ebola Screen: No symptoms or risks identified at this time. Initial Sepsis Screen: Does the patient meet any 2 criteria? No. Patient's initial sepsis screen is negative. Does the patient have a suspected source of infection? No. Patient's initial sepsis screen is negative. Risk Assessment: Do you want to hurt yourself or someone else? Patient reports no desire to harm self or others. Onset of symptoms was January 31, 2024 at 22:00. 23:31 Method Of Arrival: Ambulatory tl4 23:31 Acuity: [place] 3 tl4 Triage Assessment: 23:35 General: Appears uncomfortable, Behavior is cooperative. Pain: Complains of pain in tl4 back and abdomen. EENT: No signs and/or symptoms were reported regarding the EENT system. Neuro: Level of Consciousness is awake, alert, obeys commands, Oriented to person, place, time, situation. Cardiovascular: Capillary refill < 3 seconds Patient's skin is warm and dry. Respiratory: Airway is patent Respiratory effort is even, unlabored, Respiratory pattern is regular, symmetrical. GI: Reports lower abdominal pain, nausea, vomiting. : Reports urinary frequency. Derm: No signs and/or symptoms reported regarding the dermatologic system. Musculoskeletal: Reports pain in back. Historical: - Allergies: 23:33 Morphine; tl4 23:33 Reglan; tl4 23:33 Toradol; tl4 - Home Meds: 23:33 levothyroxine 150 mcg cap 1 cap once daily [Active]; Premarin 0.3 mg Oral tab 1 tab tl4 once daily [Active]; Vicodin 5/500 Oral as needed [Active]; - PMHx: 23:33 Endometriosis of vagina; Hypothyroidism; melanoma; tl4 - PSHx: 23:33 30 surgeries for endometriosis; Appendectomy; section; Cholecystectomy; tl4 hysterectomy; Multiple abdominal surgeries; Ovary removal; Thyroidectomy; - Immunization history:: Adult Immunizations unknown. - Infectious Disease History:: Denies. - Social history:: Smoking status: Patient reports the use of cigarette tobacco products, 3 cigarettes/day. Screenin/03 00:35 [facility] ED Fall Risk Assessment (Adult) History of falling in the last 3 months, jj7 including since admission No falls in past 3 months (0 pts) Confusion or Disorientation No (0 pts) Intoxicated or Sedated No (0 pts) Impaired Gait No (0 pts) Mobility Assist Device Used No (0 pt) Altered Elimination No (0 pt) Score/Fall Risk Level 0 - 2 = Low Risk Oriented to surroundings, Maintained a safe environment, Educated pt \T\ family on fall prevention, incl call for assistance when getting out of bed, Assessed \T\ reinforced patient's understanding of fall precautions. Abuse screen: Denies threats or abuse. Nutritional screening: No deficits noted. Tuberculosis screening: No symptoms or risk factors identified. Assessment: 00:25 General: Appears in no apparent distress. uncomfortable, Behavior is calm, cooperative, jj7 appropriate for age. Pain: Complains of pain in posterior aspect of right lateral abdomen, anterior aspect of right lateral abdomen and right lower quadrant. 00:25 GI: Bowel sounds present X 4 quads. Abdomen is tender to palpation in right lower jj7 quadrant Reports nausea, vomiting. 01:15 Reassessment: PT STATES SHE NEEDS TO LEAVE BECAUSE HER GOT CALLED INTO WORK. jj7 STATES HE PAIN IS BETTER .TAMMY LIMON INFORMED. Vital Signs: 01/30 23:31 BP 149 / 89; Pulse 93; Resp 18; Temp 96.6(O); Pulse Ox 98% on R/A; Weight 99.79 kg; tl4 Height 5 ft. 4 in. ; Pain 9/10; 01/31 00:33 BP 108 / 85; Pulse 83; Resp 17; Pulse Ox 98% ; jj7 01:21 BP 107 / 81; Pulse 80; Resp 17; Pulse Ox 100% ; Pain 0/10; jj7 01/30 23:31 Body Mass Index 37.76 (99.79 kg, 162.56 cm) tl4 01/30 23:31 Pain Scale: Adult tl4 01:21 Pain Scale: Adult jj7 ED Course: 01/30 23:03 Patient arrived in ED. mr 23:06 [facility] Lim[facility] sb4 23:06 Joe Baldwin MD is Attending Physician. sb4 23:33 Triage completed. tl4 23:35 Arm band placed on right wrist. tl4 08 00:07 Nohemy Macias, [place] is Primary Nurse. jj7 00:31 CBC with Diff Sent. al5 00:31 CMP Sent. al5 00:31 Lipase Sent. al5 00:31 Test, Urine Sent. al5 00:31 Urinalysis w/ reflexes Sent. al5 00:31 Missed attempt(s): 20 gauge in right antecubital area. Bleeding controlled, band aid af3 applied, catheter tip intact. 00:31 Inserted saline lock: 22 gauge in left antecubital area, using aseptic technique. al5 ,using aseptic technique. via ultrasound Blood collected. Flushed with 10 mL NS. 00:31 Missed attempt(s): 22 gauge in left hand. Bleeding controlled, band aid applied, af3 catheter tip intact. 00:35 Patient has correct armband on for positive identification. Bed in low position. Call jj7 light in reach. Side rails up X 1. Provided Education on: USE OF CALL SHIRLEY. Warm blanket given. 01:12 CT Abd/Pelvis - IV Contrast Only In Process Unspecified. EDMS 01:19 No provider procedures requiring assistance completed. IV discontinued, intact, jj7 bleeding controlled, No redness/swelling at site. Pressure dressing applied. Administered Medications: 00:33 Drug: NS 0.9% IV 1000 ml IV at 1 bolus Per protocol; 1000 mL bolus Route: IV; Rate: 1 jj7 bolus; Site: left antecubital; 01:23 Follow up: IV Status: Completed infusion jj7 00:33 Drug: fentaNYL (PF) IVP 50 mcg IVP once Route: IVP; Site: left antecubital; jj7 00:58 Follow up: Response: Pain is unchanged, physician notified jj7 00:33 Drug: Ondansetron IVP 4 mg IVP once; over 2 minutes Route: IVP; Site: left antecubital; jj7 00:58 Follow up: Response: Nausea is decreased 00:58 Drug: HYDROmorphone IVP 0.5 mg IVP once Route: IVP; Site: left antecubital; jj7 01:19 Follow up: Response: Marked relief of symptoms; Pain is decreased Medication: 01:20 VIS not applicable for this client. jj7 Outcome: 01:18 Discharge ordered by sb4 01:20 Discharged to home ambulatory, jj7 01:20 Condition: improved 01:20 Discharge instructions given to patient, Instructed on discharge instructions, Demonstrated understanding of instructions, 01:22 Patient left the ED. jj7 Signatures: Dispatcher [employer] EDMS Rufina Watson, Nereaj Reg mr Nohemy Macias, RN RN jj7 Gracy Limon, PA-C PA-C Stu Lobo RN RN tl4 Magdalene Washburn RN RN alGali Singh af3 Corrections: (The following items were deleted from the chart) 01/30 23:34 23:33 PSHx: 30 surgeries for endometriosis; tl4 tl4 23:34 23:33 PSHx: 30 surgeries for endometriosis; tl4 tl4 23:34 23:33 PSHx: 30 surgeries for endometriosis; tl4 tl4 23:34 23:33 PSHx: 30 surgeries for endometriosis, has developed scar tissue; tl4 tl4 01/31 00:32 00:31 Missed attempt(s): 20 gauge in right antecubital area. af3 af3
[2024-02-01 05:25] VITALS: TEMP 96.6
[2024-02-01 05:36] VITALS: BP 107/81; O2SAT 100
--- NOTE | 2024-02-01 19:32 | RAD REPORT ---
EXAM DESCRIPTION: Abdomen Pelvis W Contrast RadLex: CT ABDOMEN PELVIS WITH IV CONTRAST CLINICAL HISTORY: 38 years Female; Abd pain;Flank pain; IV ONLY Bed Name: 13 TECHNIQUE: CT of the abdomen and pelvis with intravenous contrast. All CT scans at this facility use dose modulation, iterative reconstruction, and/or weight based dosi ng when appropriate to reduce radiation dose to as low as reasonably achievable. COMPARISON: CT abdomen pelvis 07/09/2023. FINDINGS: Lower thorax: Mild bibasilar atelectasis. Abdomen: Stomach: Sleeve gastrectomy changes. Liver: Subcentimeter hypodensity in the right hepatic lobe, too small to characterize. No intrahepati c ductal distention. Gallbladder: Surgically absent. Pancreas: Within normal limits Spleen: Within normal limits Right kidney: No hydronephrosis. Multiple renal stones. Left kidney: No hydronephrosis. No focal lesion. Adrenal glands: Within normal limits Vascular structures: Within normal limits Nodes: No lymphadenopathy by size criteria Pelvis: Small bowel: No significant distention. Appendix: Not visualized. No pericecal inflammatory changes. Colon: No distention or acute pericolonic edema. Peritoneum: No free intraperitoneal fluid or air. Bones: No acute bone findings. Bladder: Unremarkable. Reproductive organs: No acute findings. IMPRESSION: 1. No acute abdominopelvic findings. 2. Right-sided nephrolithiasis. No hydronephrosis. Electronically signed by: Mj Garcia MD 02/01/2024 01:52 AM CDT RP Z9 Due to temporary technical issues with the PACS/Fluency reporting system, reports are being signed by the in house radiologists without review as a courtesy to insure prompt reporting. The interpreting radiologist is fully responsible for the content of the report.
== END 2024-02-01 01:22 | disposition home or self-care (01) ==
LOC: ER 22:59
DX: N23 Unspecified renal colic (principal)
CPT/HCPCS: 36415; 74177; 80053; 81001; 81025; 83690; 85025; 96361; 96374; 96375; 99284; J1170; J2405; J3010; J7030; Q9967

== ENCOUNTER 2024-02-15 22:45 | Emergency (ER) | payer SELFPAY ==
[2024-02-16 01:08] LABS: Calcium Oxalate Crystals- Ur Few /HPF (None Seen); Specific Gravity > 1.030 (1.005-1.030); Sqamous Epithelial <5 /HPF (None Seen); Urine Bacteria <20 /HPF (<20); Urine Bilirubin NEGATIVE (Negative); Urine Blood Trace (Negative); Urine Clarity Extremely Turbid (Clear); Urine Color Light-Yellow (Yellow); Urine Culture Reflex Order NOT NEEDED; Urine Glucose NEGATIVE (Negative); Urine Ketones NEGATIVE (Negative); Urine Microscopic Reflex YN ORDER UMIC; Urine Mucus 3+ /HPF (None Seen); Urine Nitrite NEGATIVE (Negative); Urine Protein TRACE (Negative); Urine Urobilinogen 1+ (Normal); Urine WBC <5 /HPF (<5)
[2024-02-16] MEDS ORDERED: PROMETHAZINE INJ 25 MG/ML AMP ONE (02:36)
[2024-02-16] MEDS ORDERED: FENTANYL CITR 100 MCG/2 ML ONE (02:36)
[2024-02-16] MEDS ORDERED: NA CHLORIDE 0.9% 1,000 ML ONE (02:36)
[2024-02-16 02:43] LABS: Absolute Basophils 0.1 K/uL (0-0.5); Absolute Eosinophils 0.1 K/uL (0-0.5); Absolute Lymphocytes (CBC) 2.8 K/uL (0.7-4.9); Absolute Monocytes 0.6 K/uL (0.1-1.3); Absolute Neutrophil 4.9 K/uL (1.8-8.0); Basophils % 0.8 % (0-1.3); Eosinophils % 1.6 % (0-4.4); Hematocrit 36.3 % (36.0-45.0); Hemoglobin 11.9 g/dL (12.0-15.0); Lymphocytes % 33.3 % (15.3-44.8); MCH 29.7 pg (27.0-35.0); MPV 7.2 fL (7.6-11.3); Neutrophils % 57.3 % (41.7-73.7); Nucleated Red Blood Cells % 0.1 % (0-0); Platelets 253 thou/uL (152-406); RBC Red Blood Cell Count 4.03 M/uL (3.86-4.86); Red Cell Distribution Width 13.9 % (12.1-15.2)
[2024-02-16 03:00] LABS: Albumin 3.2 g/dL (3.4-5.0); Albumin/Globulin Ratio 0.9 (1.1-1.8); Bilirubin Total 0.3 mg/dL (0.2-1.0); Globulin 3.6 g/dL (2.3-3.5); Protein, Total 6.8 g/dL (6.4-8.2)
--- NOTE | 2024-02-16 03:21 | ER ---
Nurse's Notes [facility] Name: Hong Pace Age: 38 yrs Sex: Female : 1985 Arrival Date: 02/15/2024 Time: 22:45 Bed 14 Private MD: Diagnosis: Abdominal pain, unspecified Presentation: 02/14 23:24 Chief complaint: Patient states: pain in lower back going to the front and shooting vc1 back to the back. Coronavirus screen: Client denies travel out of the [place] in the last 14 days. At this time, the client does not indicate any symptoms associated with coronavirus-19. Ebola Screen: Patient negative for fever greater than or equal to 101.5 degrees Fahrenheit, and additional compatible Ebola Virus Disease symptoms Patient denies exposure to infectious person. Patient denies travel to an Ebola-affected area in the 21 days before illness onset. No symptoms or risks identified at this time. Initial Sepsis Screen: Does the patient meet any 2 criteria? No. Patient's initial sepsis screen is negative. Does the patient have a suspected source of infection? No. Patient's initial sepsis screen is negative. Risk Assessment: Do you want to hurt yourself or someone else? Patient reports no desire to harm self or others. Onset of symptoms was February 15, 2024 at 21:00. Care prior to arrival: None. Activity prior to arrival: None. Mechanism of Injury: No Mechanism of Injury. Transition of care: patient was not received from another setting of care. 23:24 Method Of Arrival: Ambulatory vc1 23:24 Acuity: [place] 3 vc1 Triage Assessment: 23:27 General: Appears in no apparent distress. comfortable, well groomed, well developed, vc1 Behavior is calm, cooperative, appropriate for age. Pain: Complains of pain in anterior aspect of right lateral abdomen and anterior aspect of left lateral abdomen Pain radiates to low back area Pain currently is 9 out of 10 on a pain scale. Quality of pain is described as radiating, sharp, shooting, Pain began 2100 Is continuous, Also complains of nausea. EENT: No deficits noted. No signs and/or symptoms were reported regarding the EENT system. Neuro: Level of Consciousness is awake, alert, obeys commands, Oriented to person, place, time, situation, Appropriate for age. Cardiovascular: No deficits noted. Capillary refill < 3 seconds Patient's skin is warm and dry. Respiratory: Airway is patent Respiratory effort is even, unlabored, Respiratory pattern is regular, symmetrical, Breath sounds are clear. GI: Abdomen is round non-distended, Reports lower abdominal pain, nausea, vomiting. : No deficits noted. No signs and/or symptoms were reported regarding the genitourinary system. Derm: Skin is intact, is healthy with good turgor, Skin is dry, Skin is normal, Skin temperature is warm. Musculoskeletal: Circulation, motion, and sensation intact. Range of motion: intact in all extremities. 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 - Infectious Disease History:: Denies. - Social history:: Smoking status: Patient reports the use of cigarette tobacco products, denies chronic smoking, but will smoke occasionally. Screenin:27 [facility] ED Fall Risk Assessment (Adult) History of falling in the last 3 months, vc1 including since admission No falls in past 3 months (0 pts) Confusion or Disorientation No (0 pts) Intoxicated or Sedated No (0 pts) Impaired Gait No (0 pts) Mobility Assist Device Used No (0 pt) Altered Elimination No (0 pt) Score/Fall Risk Level 0 - 2 = Low Risk Oriented to surroundings, Maintained a safe environment, Educated pt \T\ family on fall prevention, incl call for assistance when getting out of bed. Abuse screen: Denies threats or abuse. Nutritional screening: No deficits noted. Tuberculosis screening: No symptoms or risk factors identified. Assessment: 02/15 00:02 General: Appears in no apparent distress. comfortable, well groomed, Behavior is calm, pc2 cooperative, appropriate for age. Pain: Complains of pain in abdomen. Neuro: Level of Consciousness is awake, alert, obeys commands, Oriented to person, place, time, situation. Cardiovascular: Denies chest pain, Patient's skin is warm and dry. Respiratory: Airway is patent Respiratory effort is even, unlabored, Respiratory pattern is regular, symmetrical. GI: Abdomen is non-distended, Abd is soft and non tender X 4 quads. Reports lower abdominal pain. : No signs and/or symptoms were reported regarding the genitourinary system. EENT: No signs and/or symptoms were reported regarding the EENT system. Derm: No signs and/or symptoms reported regarding the dermatologic system. Musculoskeletal: No signs and/or symptoms reported regarding the musculoskeletal system. 00:02 GI: Reports nausea. pc2 03:10 General: Pt requesting additional pain medicine. Dr. Li made aware and informed pc2 patient of re-evaluation following CT results. pt is requesting to leave AMA at this time.. Vital Signs: 02/14 23:24 Weight 99.79 kg; Height 5 ft. 4 in. ; Pain 9/10; vc1 23:29 BP 117 / 72; Pulse 63; Resp 15; Temp 98.7; Pulse Ox 98% ; vc1 02/15 01:00 BP 116 / 79; Pulse 80; Resp 18; Pulse Ox 100% on R/A; pc2 02:30 BP 117 / 76; Pulse 74; Resp 16; Pulse Ox 100% on R/A; pc2 03:09 BP 126 / 80; Pulse 74; Resp 16; Pulse Ox 99% on R/A; pc2 02/14 23:24 Body Mass Index 37.76 (99.79 kg, 162.56 cm) vc1 02/14 23:24 Pain Scale: Adult vc1 ED Course: 02/14 22:47 Patient arrived in ED. ra3 22:48 Cole Abbott PA is PHCP. cp 22:49 Cornel Li MD is Attending Physician. cp 23:25 Triage completed. vc1 23:27 Arm band placed on right wrist. vc1 02/15 00:01 Maria Teresa Dewitt, RN is Primary Nurse. pc2 00:01 Patient has correct armband on for positive identification. Bed in low position. Call pc2 light in reach. Side rails up X 1. Provided Education on: POC and time frame. 00:01 No provider procedures requiring assistance completed. pc2 00:40 Missed attempt(s): 20 gauge in right forearm. pc2 00:45 Missed attempt(s): 20 gauge in right hand. pc2 00:47 Urinalysis w/ reflexes Sent. pc2 01:27 Missed attempt(s): 22 gauge forearm. Bleeding controlled, band aid applied, catheter oe tip intact. 01:28 Missed attempt(s): 20 gauge antecubital area. Bleeding controlled, band aid applied, oe catheter tip intact. 02:38 Inserted saline lock: 24 gauge in right ,using aseptic technique. pinky. vc1 02:48 CBC with Diff Sent. pc2 02:48 CMP Sent. pc2 02:48 Lipase Sent. pc2 02:[address] via stretcher. pc2 03:03 CT Stone Protocol In Process Unspecified. EDMS 03:28 IV discontinued, intact, bleeding controlled, No redness/swelling at site. Pressure pc2 dressing applied. Administered Medications: 01:27 CANCELLED (Physician Discretion): ondansetron 4 mg IVP once; over 2 minutes cp 01:28 CANCELLED (Physician Discretion): fentanyl (pf)50 mcg IVP once cp 02:45 Drug: Promethazine IM 25 mg IM once Route: IM; Site: right deltoid; pc2 03:28 Follow up: Response: No adverse reaction; RASS: Alert and Calm (0) pc2 02:45 Drug: fentaNYL (PF) IVP 50 mcg IVP once Route: IVP; Site: right hand; pc2 03:28 Follow up: Response: No adverse reaction; RASS: Alert and Calm (0) pc2 02:48 Drug: NS 0.9% IV 1000 ml IV at 1 bolus Per protocol; 1000 mL bolus Route: IV; Rate: 1 pc2 bolus; Site: right hand; 03:31 Follow up: Response: No adverse reaction; IV Status: Order to discontinue infusion; IV pc2 Intake: 250ml 02:49 Not Given (route changed after IV established): fentanyl (pf)50 mcg IM once pc2 Medication: 02/14 23:31 VIS not applicable for this client. vc1 Intake: 02/15 03:31 IV: 250ml; Total: 250ml. pc2 Outcome: 03:27 AMA AMA form signed pc2 03:27 Condition: stable 03:27 Instructed on leaving AMA Demonstrated understanding of instructions, 03:32 Patient left the ED. pc2 Signatures: Dispatcher [employer] EDMS Cole Abbott PA PA cp Espinosa, [place] oe Calcote, Vanessa RN RN vc1 Annie Baez ra3 Maria Teresa Dewitt, RN RN pc2 Corrections: (The following items were deleted from the chart) 01:07 00:02 General: Appears in no apparent distress. comfortable, well groomed, Behavior is pc2 calm, cooperative, appropriate for age, pc2
--- NOTE | 2024-02-16 03:21 | EDPHYS ---
Physician Documentation [facility] Name: Hong Pace Age: 38 yrs Sex: Female : 1985 Arrival Date: 02/15/2024 Time: 22:45 Bed 14 Private MD: ED Physician Cornel Li HPI: 02/14 23:45 This 38 yrs old Female presents to ER via Ambulatory with complaints of Flank Pain. cp 23:45 The patient complains of pain in the left lower flank. The pain radiates to the low cp back area, to the abdomen. Onset: The symptoms/episode began/occurred today. Associated signs and symptoms: Pertinent positives: nausea, vomiting. Severity of pain: in the emergency department the pain is unchanged despite home interventions. [facility] WORKER: 23:27 LMP N/A - Hysterectomy, Not vc1 Historical: - Allergies: 23:25 Morphine; vc1 23:25 Reglan; vc1 23:25 Toradol; vc1 - Home Meds: 23:25 levothyroxine 150 mcg cap 1 cap once daily [Active]; Premarin 0.3 mg Oral tab 1 tab vc1 once daily [Active]; - PMHx: 23:25 Endometriosis of vagina; Hypothyroidism; melanoma; kdiney stones (melanoma); vc1 - PSHx: 23:25 Appendectomy; section; Cholecystectomy; hysterectomy; Multiple abdominal vc1 surgeries; Ovary removal; Thyroidectomy; - Immunization history:: Client reports having NOT received the Covid vaccine. - Infectious Disease History:: Denies. - Social history:: Smoking status: Patient reports the use of cigarette tobacco products, denies chronic smoking, but will smoke occasionally. ROS: 23:50 Eyes: Negative for injury, pain, redness, and discharge, cp 23:50 Constitutional: Negative for body aches, chills, fever, poor PO intake, 23:50 ENT: Negative for drainage from ear(s), ear pain, sore throat, difficulty swallowing, difficulty handling secretions, 23:50 Respiratory: Negative for cough, shortness of breath, wheezing, 23:50 Abdomen/GI: Positive for abdominal pain, 23:50 Back: Positive for flank pain, on the left, 23:50 : Negative for urinary symptoms, 23:50 Neuro: Negative for altered mental status, dizziness, headache, weakness, 23:50 All other systems are negative, Exam: 23:55 Constitutional: The patient appears in no acute distress, alert, awake, non-toxic, well cp developed, well nourished, uncomfortable, 23:55 Head/Face: Normocephalic, atraumatic. cp 23:55 Eyes: Periorbital structures: appear normal, Conjunctiva: normal, no exudate, no injection, Sclera: no appreciated abnormality, Lids and lashes: appear normal, bilaterally, 23:55 ENT: External ear(s): are unremarkable, Nose: is normal, Mouth: Lips: moist, Oral mucosa: pink and intact, moist, 23:55 Chest/axilla: Inspection: normal, 23:55 Cardiovascular: Rate: normal, 23:55 Respiratory: the patient does not display signs of respiratory distress, Respirations: normal, no use of accessory muscles, no retractions, labored breathing, is not present, Breath sounds: are clear throughout, no decreased breath sounds, no stridor, no wheezing, 23:55 Abdomen/GI: Inspection: abdomen appears normal, Palpation: soft, in all quadrants, moderate abdominal tenderness, in the posterior aspect of left lateral abdomen, anterior aspect of left lateral abdomen and left lower quadrant, rebound tenderness, is not appreciated, involuntary guarding, is not appreciated, Vital Signs: 23:24 Weight 99.79 kg; Height 5 ft. 4 in. ; Pain 9/10; vc1 23:29 BP 117 / 72; Pulse 63; Resp 15; Temp 98.7; Pulse Ox 98% ; vc1 02/15 01:00 BP 116 / 79; Pulse 80; Resp 18; Pulse Ox 100% on R/A; pc2 02:30 BP 117 / 76; Pulse 74; Resp 16; Pulse Ox 100% on R/A; pc2 03:09 BP 126 / 80; Pulse 74; Resp 16; Pulse Ox 99% on R/A; pc2 02/14 23:24 Body Mass Index 37.76 (99.79 kg, 162.56 cm) vc1 02/14 23:24 Pain Scale: Adult vc1 MDM: 02/14 23:41 Patient medically screened. cp 02/15 01:51 Data reviewed: vital signs. ED course: Patient signed out to me with, patient with ec2 pending CT imaging and lab work. 03:04 ED course: CBC metabolic profile reassuring, urine is pertinent for RBCs otherwise ec2 noninfectious. . 03:19 ED course: Patient requesting Dilaudid for pain, when I instructed her that she would ec2 not get it she states that she would leave. I am concern for pain seeking behavior. Patient does not have results of CT imaging and she expressed understanding regarding risk and benefits with pending imaging.. 18 00:05 Order name: CBC with Diff; Complete Time: 03:04 cp 02/15 00:05 Order name: CMP; Complete Time: 03:04 cp 02/15 00:05 Order name: Lipase; Complete Time: 03:04 cp 02/15 00:05 Order name: Urinalysis w/ reflexes; Complete Time: 01:27 cp 02/15 00:05 Order name: CT Stone Protocol cp 02/15 00:05 Order name: IV Saline Lock; Complete Time: 02:48 cp 02/15 00:05 Order name: Labs collected and sent; Complete Time: 02:48 cp Administered Medications: 01:27 CANCELLED (Physician Discretion): ondansetron 4 mg IVP once; over 2 minutes cp 01:28 CANCELLED (Physician Discretion): fentanyl (pf)50 mcg IVP once cp 02:45 Drug: Promethazine IM 25 mg IM once Route: IM; Site: right deltoid; pc2 03:28 Follow up: Response: No adverse reaction; RASS: Alert and Calm (0) pc2 02:45 Drug: fentaNYL (PF) IVP 50 mcg IVP once Route: IVP; Site: right hand; pc2 03:28 Follow up: Response: No adverse reaction; RASS: Alert and Calm (0) pc2 02:48 Drug: NS 0.9% IV 1000 ml IV at 1 bolus Per protocol; 1000 mL bolus Route: IV; Rate: 1 pc2 bolus; Site: right hand; 03:31 Follow up: Response: No adverse reaction; IV Status: Order to discontinue infusion; IV pc2 Intake: 250ml 02:49 Not Given (route changed after IV established): fentanyl (pf)50 mcg IM once pc2 Disposition: 03:19 I agree with the assessment and plan of care. ec2 Disposition Summary: 02/16/24 03:20 Left Against Medical Advice Notes: Location: Home ec2 Problem: chronic ec2 Symptoms: are unchanged ec2 Condition: Stable ec2 Diagnosis - Abdominal pain, unspecified ec2 Followup: ec2 - With: Private Physician - When: - Reason: Re-evaluation by your physician Signatures: Dispatcher [employer] EDNC Cole Abbott PA PA cp Calcote, Vanessa, [place] RN vc1 Cornel Li MD MD ec2 Maria Teresa Dewitt, RN RN pc2 Corrections: (The following items were deleted from the chart) 00:06 00:06 CBC+H.LAB.BRZ ordered. EDMS EDMS 00:06 00:06 COMPREHENSIVE METABOLIC PANEL+C.LAB.BRZ ordered. EDMS EDMS 00:06 00:06 LIPASE+C.LAB.BRZ ordered. EDNC EDMS 00:06 00:06 Urinalysis+U.LAB.BRZ ordered. EDNC EDMS 01:27 00:05 Ondansetron IVP 4 mg IVP once; over 2 minutes ordered. cp cp 01:28 00:05 fentaNYL (PF) IVP 50 mcg IVP once ordered. cp cp 03:20 03:19 ED course: Patient requesting Dilaudid for pain, when I instructed her that she ec2 would not get it she states that she would leave. I am concern for pain seeking behavior. Patient does not have results of CT imaging and she expressed understanding regarding risk and benefits with pending admission.. ec2
[2024-02-16 04:23] VITALS: TEMP 98.7
[2024-02-16 04:27] VITALS: BP 126/80; O2SAT 99
--- OUTSIDE RECORDS SUMMARY | 2024-02-18 11:55 | XMS REPORT | Clinical Summary ---
Author Name Unknown Organization [facility] [place] Address [address] [place] [address] Care Team Providers Care Sand Molder Name Role Phone Keila Valentine MD Primary Care Provider Navi Arango Unavailable [phone] Nuria Sahu MD Unavailable Allergies Active Allergy [...] [facility] [address] [facility] [address] B[address], [address]th [place] [address] [phone] Viktoriay Wright RN Personal history of malignant melanoma of skin (Primary Dx) after 02/15/2023 Immunizations Name Administration Dates Next Due Influenza [...] OVARIAN CYST SURGERY 08/29/2018 - 09/28/2018 Right CO EXCISION MAL LESION TRUNK/ARM/LEG 0.6-1.0 CM 09/23/2018 [...] 4 season) 2023 Influenza Vaccine 03/01/2024 04/19/2015, 03/30/2011, 04/05/2009 Pneumococcal Vaccine: Pediatrics (0 to 5 Years) and At-Risk Patients (6 to 64 Years) Aged Out No longer eligible b ased on patient's age to complete this topic Advance Directives * Full Code (Latest Code Status on File) Date Activated Date Inactivated Comments 10/04/2018 8:21 PM 10/08/2018 5:55 PM * Full Code Date Activated Date Inactivated Comments 09/23/2018 1:48 PM 09/23/2018 6:55 PM Care Teams Sand Molder Relationship Specialty Start Date End Date Keila Valentine MD [address] [place] [address] [email or web address] PCP - General Surgical Oncology 08/26/18 Navi Arango FNP [address] [place] [address] PCP - External Primary Care Provider Family Practice 09/08/18 Nuria Sahu MD [address] [place] [address] [email or web address] Consulting Physician Dermatology 10/20/18
--- NOTE | 2024-02-18 14:26 | RAD REPORT ---
EXAM DESCRIPTION: CT - Stone Protocol - 02/18/2024 2:04 pm RadLex: CT HEAD WITHOUT IV CONTRAST CLINICAL HISTORY: 27 years Female; CONFUSED; Bed Name: 16 TECHNIQUE: Noncontrast CT head. All CT scans at this facility use dose modulation, iterative reconstruction, and/or weight based dosi ng when appropriate to reduce radiation dose to as low as reasonably achievable. COMPARISON: None. FINDINGS: Parenchyma: No acute hemorrhage, large territorial infarction, or mass effect. Ventricles and extra-axial spaces: Appropriate for age. Visualized paranasal sinuses: Clear. Mastoid air cells: Clear. Bones: No acute focal abnormality. Additional comment: None. IMPRESSION: No acute intracranial findings. Electronically signed by: Mj Garcia MD 02/16/2024 03:11 AM CDT RP Z9 Due to temporary technical issues with the PACS/Fluency reporting system, reports are being signed by the in house radiologists without review as a courtesy to insure prompt reporting. The interpreting radiologist is fully responsible for the content of the report.
== END 2024-02-16 03:32 | disposition left against medical advice (07) ==
LOC: ER 22:45
DX: R10.32 Left lower quadrant pain (principal); F17.210 Nicotine dependence, cigarettes, uncomplicated; Z87.442 Personal history of urinary calculi
CPT/HCPCS: 36415; 74176; 76377; 80053; 81001; 83690; 85025; 96361; 96372; 96374; 99284; J2550; J3010; J7030

== ENCOUNTER 2024-08-17 12:31 | Emergency (ER) | payer BC ==
--- OUTSIDE RECORDS SUMMARY | 2024-08-17 12:33 | XMS REPORT | Clinical Summary ---
Author Name Unknown Organization [facility] [place] Address [address] [place] [address] Care Team Providers Care Solid Fiber Paster Operator Name Role Phone Keila Valentine MD Primary Care Provider Navi Arango Unavailable [phone] Nuria Sahu MD Unavailable Allergies Active Allergy Reactions Criticality Noted Date Comments Ketorolac Itching Medium 07/19/2010 Medications zolpidem (AMBIEN) 10 mg tablet 07/01/2006 Active citalopram (CeleXA) 40 mg tablet 03/10/2018 Active levothyroxine 175 mcg cap 02/07/2011 Active estrogens, conjugated (PREMARIN ORAL) Take by mouth daily. 04/22/2019 Active Active Problems Problem Noted Date Diagnosed Date Surgical site infection 10/05/2018 Encounter for other preprocedural examination Overview (09/08/2018): EKG 09/08/2018 NSR NR 68 Obesity 09/08/2018 Overview (09/08/2018): BMI Readings from Last 2 Encounters: 09/08/18 36.82 kg/m Hypothyroidism 09/08/2018 Malignant melanoma of other part of trunk 2018 Encounters Date Type Department Care Team Description 08/19/2023 Orders Only [facility] [address] [facility] [address] [facility], [address] [place] [address] Viktoriya Wright, RN Personal history of malignant melanoma of skin (Primary Dx) after 08/18/2023 Immunizations Name Administration Dates Next Due Influenza, Unspecified 03/30/2011 Influenza, split virus, trivalent, preservative free 04/05/2009 Tdap 03/30/2011 Surgical History Surgery Date Site/Laterality Comments APPENDECTOMY 07/01/2006 - 06/30/2007 EXPLORATORY LAPAROTOMY 07/01/2006 - 06/30/2007 Found the endometriosis HYSTERECTOMY 07/01/2014 - 06/30/2015 Still have right ovary THYROID SURGERY 07/01/2010 - 06/30/2011 completely removed CHOLECYSTECTOMY 07/01/2015 - 06/30/2016 SHOULDER SURGERY 07/01/1999 - 06/30/2000 Rotator cuff OVARIAN CYST SURGERY 08/29/2018 - 09/28/2018 Right [place] EXCISION MAL LESION TRUNK/ARM/LEG 0.6-1.0 CM 09/23/2018 [...] drink = 0.6 oz pur e alcohol) Comments No Sex and Gender Information Value Date Recorded Sex Assigned at Not on file Legal Sex Female 10:16 AM 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 Gender Identity Not on file Sexual Orientation Not on file 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 Not on file Not on file Obstetrics History Plan of Treatment Health Maintenance Due Date Last Done Comments COVID-19 Vaccine (1 - 2023-2 5 season) 2024 Influenza Vaccine (#1) 2024 5, 03/30/2011, 04/05/2009 Pneumococcal Vaccine Aged Out No long er eligible based on patient's age to complete this topic Advance Directives * Full Code (Latest Code Status on File) Date Activated Date Inactivated Comments 10/04/2018 8:21 PM 10/08/2018 5:55 PM * Full Code Date Activated Date Inactivated Comments 09/23/2018 1:48 PM 09/23/2018 6:55 PM Care Teams Solid Fiber Paster Operator Relationship Specialty Start Date End Date Keila Valentine MD [facility] [place] [address] [email or web address] PCP - General Surgical Oncology 08/26/18 Navi Arango FNP [address] [place] [address] PCP - External Primary Care Provider Family Practice 09/08/18 Nuria Sahu MD [address] [place] [id number] [email or web address] Consulting Physician Dermatology 10/20/18
[2024-08-17] MEDS ORDERED: HYDROMORPHONE HCL 0.5 MG/0.5 ML INJ ONE (14:23)
[2024-08-17] MEDS ORDERED: ONDANSETRON 4 MG/2 ML VIAL ONE (14:23)
[2024-08-17] MEDS ORDERED: NA CHLORIDE 0.9% 1,000 ML ONE (14:23)
[2024-08-17 14:56] LABS: Absolute Basophils 0.1 K/uL (0-0.5); Absolute Eosinophils 0.1 K/uL (0-0.5); Absolute Monocytes 0.4 K/uL (0.1-1.3); Absolute Neutrophil 5.3 K/uL (1.8-8.0); Basophils % 0.7 % (0-1.3); Eosinophils % 1.2 % (0-4.4); Hematocrit 38.1 % (36.0-45.0); Hemoglobin 13.3 g/dL (12.0-15.0); Lymphocytes % 25.7 % (15.3-44.8); MCV 88.4 fL (80-100); MPV 7.4 fL (7.6-11.3); Neutrophils % 67.4 % (41.7-73.7); Platelets 246 thou/uL (152-406); RBC Red Blood Cell Count 4.31 M/uL (3.86-4.86); Red Cell Distribution Width 14.1 % (12.1-15.2); Specific Gravity 1.009 (1.005-1.030)
[2024-08-17 14:57] LABS: Specific Gravity 1.009 (1.005-1.030); Sqamous Epithelial <5 /HPF (None Seen); Urine Bacteria <20 /HPF (<20); Urine Bilirubin NEGATIVE (Negative); Urine Blood Negative (Negative); Urine Clarity Turbid (Clear); Urine Color Colorless (Yellow); Urine Crystals Unidentified Few /HPF (None Seen); Urine Culture Reflex Order NOT NEEDED; Urine Glucose NEGATIVE (Negative); Urine Ketones NEGATIVE (Negative); Urine Micro Reflex YN NO BILL MICROSCOPIC; Urine Mucus Slight /HPF (None Seen); Urine Nitrite NEGATIVE (Negative); Urine Protein NEGATIVE (Negative); Urine RBC <5 /HPF (None Seen); Urine Urobilinogen Normal (Normal); Urine WBC <5 /HPF (<5); Urine Yeast (Budding) Trace /HPF (None Seen); Urine pH 6.5 (5.0-7.0)
[2024-08-17 15:38] LABS: Albumin 3.2 g/dL (3.4-5.0); Anion Gap 8.7 mEq/L (5.0-15.0); Bilirubin Total 0.3 mg/dL (0.2-1.0); Globulin 3.3 g/dL (2.3-3.5); Potassium 3.7 mEq/L (3.5-5.1); Protein, Total 6.5 g/dL (6.4-8.2)
--- NOTE | 2024-08-17 15:40 | ER ---
Nurse's Notes [facility] Name: Hong Pace Age: 39 yrs Sex: Female : 1985 Arrival Date: 08/17/2024 Time: 12:31 Bed 26 Private MD: Diagnosis: Right flank pain Presentation: 08/17 12:45 Chief complaint: Patient states: I think i have a kidney stones, started a couple of ko1 hours ago. Coronavirus screen: At this time, the client does not indicate any symptoms associated with coronavirus-19. Ebola Screen: No symptoms or risks identified at this time. Initial Sepsis Screen: Does the patient meet any 2 criteria? No. Patient's initial sepsis screen is negative. Does the patient have a suspected source of infection? No. Patient's initial sepsis screen is negative. Risk Assessment: Do you want to hurt yourself or someone else? Patient reports no desire to harm self or others. Onset of symptoms was August 17, 2024. 12:45 Method Of Arrival: Ambulatory ko1 12:45 Acuity: [place] 3 ko1 Triage Assessment: 12:48 General: Appears uncomfortable, Behavior is calm, cooperative, appropriate for age. ko1 Pain: Complains of pain in low back area and right low back. GI: Reports lower abdominal pain, nausea, vomiting. Historical: - Allergies: 12:48 Reglan; ko1 12:48 Toradol; ko1 - PMHx: 12:48 Endometriosis of vagina; Hypothyroidism; kdiney stones (melanoma); melanoma; ko1 - PSHx: 12:48 Appendectomy; section; Cholecystectomy; hysterectomy; Multiple abdominal ko1 surgeries; Ovary removal; Thyroidectomy; - Immunization history:: Adult Immunizations unknown. - Infectious Disease History:: Denies. - Social history:: Smoking status: Patient denies any tobacco usage or history of. Screenin:13 [facility] ED Fall Risk Assessment (Adult) History of falling in the last 3 months, kc6 including since admission No falls in past 3 months (0 pts) Confusion or Disorientation No (0 pts) Intoxicated or Sedated No (0 pts) Impaired Gait No (0 pts) Mobility Assist Device Used No (0 pt) Altered Elimination No (0 pt) Score/Fall Risk Level 0 - 2 = Low Risk Oriented to surroundings, Maintained a safe environment, Educated pt \T\ family on fall prevention, incl call for assistance when getting out of bed. Abuse screen: Denies threats or abuse. Denies injuries from another. Nutritional screening: No deficits noted. Tuberculosis screening: No symptoms or risk factors identified. Assessment: 15:13 General: Appears in no apparent distress. uncomfortable, well groomed, well developed, kc6 Behavior is calm, cooperative, appropriate for age. Pain: Complains of pain in right low back. Neuro: Level of Consciousness is awake, alert, obeys commands, Oriented to person, place, time, situation, Appropriate for age. Cardiovascular: Capillary refill < 3 seconds. Respiratory: Airway is patent Trachea midline Respiratory effort is even, unlabored, Respiratory pattern is regular, symmetrical. GI: Abdomen is flat, non-distended, Bowel sounds present X 4 quads. Abd is soft and non tender X 4 quads. Reports nausea, vomiting, Patient currently denies abdominal pain, diarrhea. : Urine is clear, Reports pain in right flank(s), in lower back with urination. EENT: No signs and/or symptoms were reported regarding the EENT system. Derm: No signs and/or symptoms reported regarding the dermatologic system. Skin is intact, is healthy with good turgor, Skin is pink, warm \T\ dry. Musculoskeletal: No signs and/or symptoms reported regarding the musculoskeletal system. Circulation, motion, and sensation intact. Range of motion: intact in all extremities. Vital Signs: 12:45 BP 126 / 91; Pulse 98; Resp 16; Temp 97.4; Pulse Ox 100% ; ko1 14:48 BP 119 / 82; Pulse 81; Resp 16 S; Pulse Ox 95% on R/A; kc6 ED Course: 12:33 Patient arrived in ED. im 12:33 Aleks Solis MD is Attending Physician. rt 12:48 Triage completed. ko1 12:48 Arm band placed on right wrist. Patient placed in waiting room, Patient notified of ko1 wait time. 14:19 Lilly Fowler, [place] is Primary Nurse. kc6 14:48 Patient has correct armband on for positive identification. Bed in low position. Call kc6 light in reach. Side rails up X 1. Pulse ox on. NIBP on. Door closed. Noise minimized. Lights dimmed. Warm blanket given. Pillow given. 14:48 Initial lab(s) drawn, by me, sent to lab. Urine collected: clean catch specimen, clear. kc6 Missed attempt(s): 22 gauge in right antecubital area. Inserted saline lock: 24 gauge in right hand, using aseptic technique. Blood collected. Flushed with 10 mL NS. Patient maintains SpO2 saturation greater than 95% on room air. 15:11 Lab(s) recollected, by me, sent to lab. kc6 15:48 No provider procedures requiring assistance completed. IV discontinued, intact, kc6 bleeding controlled, No redness/swelling at site. Pressure dressing applied. Administered Medications: 14:48 Drug: HYDROmorphone IVP 0.5 mg IVP once Route: IVP; Site: right hand; kc6 15:15 Follow up: Response: No adverse reaction; Pain is decreased; RASS: Alert and Calm (0) kc6 14:48 Drug: NS 0.9% IV 1000 ml IV at 1 bolus Per protocol; to be given as a bolus over 60 kc6 minutes Route: IV; Rate: 1 bolus; Site: right hand; 15:48 Follow up: Response: No adverse reaction; IV Status: Completed infusion; IV Intake: kc6 500ml 14:48 Drug: Ondansetron IVP 4 mg IVP once; over 2 minutes Route: IVP; Site: right hand; kc6 15:15 Follow up: Response: No adverse reaction; Nausea is decreased kc6 Medication: 15:49 VIS not applicable for this client. kc6 Intake: 15:48 IV: 500ml; Total: 500ml. kc6 Outcome: 15:40 Discharge ordered by . rt 15:49 Discharged to home ambulatory, kc6 15:49 Condition: improved 15:49 Discharge instructions given to patient, Instructed on discharge instructions, follow up and referral plans. Demonstrated understanding of instructions, follow-up care, 15:49 Patient left the ED. kc6 Signatures: Lilly Fowler RN RN kc6 Anna Castellon RN RN ko1 Aleks Solis MD MD rt Ivy Rayo Corrections: (The following items were deleted from the chart) 12:48 12:48 Allergies: Morphine; ko1 ko1
--- NOTE | 2024-08-17 15:40 | EDPHYS ---
Physician Documentation [facility] Name: Hong Pace Age: 39 yrs Sex: Female : 1985 Arrival Date: 08/17/2024 Time: 12:31 Bed 26 Private MD: ED Physician Aleks Solis HPI: 08/17 13:02 This 39 yrs old Female presents to ER via Ambulatory with complaints of Possible Kidney rt Stone. 13:02 Patient with history of recurrent kidney stones presents to the ED with right flank rt pain starting 2 hours prior to arrival. Has associated nausea and vomiting. States that is consistent with previous kidney stone. Last lithotripsy was about a month ago. Denies other acute complaints at this time, symptoms are moderate severity, no other aggravating alleviating factors.. Historical: - Allergies: 12:48 Reglan; ko1 12:48 Toradol; ko1 - PMHx: 12:48 Endometriosis of vagina; Hypothyroidism; kdiney stones (melanoma); melanoma; ko1 - PSHx: 12:48 Appendectomy; section; Cholecystectomy; hysterectomy; Multiple abdominal ko1 surgeries; Ovary removal; Thyroidectomy; - Immunization history:: Adult Immunizations unknown. - Infectious Disease History:: Denies. - Social history:: Smoking status: Patient denies any tobacco usage or history of. ROS: 13:02 Constitutional: Negative for fever, chills, and weight loss, Cardiovascular: Negative rt for chest pain, palpitations, and edema, Respiratory: Negative for shortness of breath, cough, wheezing, and pleuritic chest pain, MS/Extremity: Negative for injury and deformity, Skin: Negative for injury, rash, and discoloration, Neuro: Negative for headache, weakness, numbness, tingling, and seizure, 13:02 Abdomen/GI: Positive for nausea, Negative for abdominal pain, 13:02 Back: Positive for injury or acute deformity, flank pain, Exam: 13:02 Constitutional: This is a well developed, well nourished patient who is awake, alert, rt and in no acute distress. Head/Face: Normocephalic, atraumatic. Chest/axilla: Normal chest wall appearance and motion. Nontender with no deformity. No lesions are appreciated. Cardiovascular: Regular rate and rhythm with a normal S1 and S2. No gallops, murmurs, or rubs. Normal PMI, no JVD. No pulse deficits. Respiratory: Lungs have equal breath sounds bilaterally, clear to auscultation and percussion. No rales, rhonchi or wheezes noted. No increased work of breathing, no retractions or nasal flaring. Abdomen/GI: Soft, non-tender, with normal bowel sounds. No distension or tympany. No guarding or rebound. No evidence of tenderness throughout. Skin: Warm, dry with normal turgor. Normal color with no rashes, no lesions, and no evidence of cellulitis. MS/ Extremity: Pulses equal, no cyanosis. Neurovascular intact. Full, normal range of motion. Neuro: Awake and alert, GCS 15, oriented to person, place, time, and situation. Cranial nerves II-XII grossly intact. Motor strength 5/5 in all extremities. Sensory grossly intact. Cerebellar exam normal. Normal gait. Vital Signs: 12:45 BP 126 / 91; Pulse 98; Resp 16; Temp 97.4; Pulse Ox 100% ; ko1 14:48 BP 119 / 82; Pulse 81; Resp 16 S; Pulse Ox 95% on R/A; kc6 MDM: 12:55 Medical Screening Exam initiated rt 17:21 Differential Diagnosis Flank pain, pyelonephritis, ureterolithiasis. Data reviewed: rt vital signs, nurses notes, lab test result(s). I considered the following discharge prescriptions or medication management in the emergency department Medications were administered in the Emergency Department. See MAR. Test considered but Not performed: CT: Patient with innumerable CT scans, given lack of any signs of urinary tract infection, will treat patient empirically, will forego CT scanning to spare radiation dose. Care significantly affected by the following chronic conditions: Kidney stone. Counseling: I had a detailed discussion with the patient and/or guardian regarding the historical points, exam findings, and any diagnostic results supporting the discharge/admit diagnosis, lab results, the need for outpatient follow up. Response to treatment: the patient's symptoms have markedly improved after treatment. 08/17 12:54 Order name: CBC with Diff; Complete Time: 15:22 rt 08/17 12:54 Order name: CMP; Complete Time: 15:39 rt 08/17 12:54 Order name: UAM; Complete Time: 15:22 rt 08/17 12:56 Order name: PREGU; Complete Time: 15:22 rt 08/17 14:58 Order name: Labs - recollect needed: recollect green top; Complete Time: 15:11 bd Administered Medications: 14:48 Drug: HYDROmorphone IVP 0.5 mg IVP once Route: IVP; Site: right hand; kc6 15:15 Follow up: Response: No adverse reaction; Pain is decreased; RASS: Alert and Calm (0) kc6 14:48 Drug: NS 0.9% IV 1000 ml IV at 1 bolus Per protocol; to be given as a bolus over 60 kc6 minutes Route: IV; Rate: 1 bolus; Site: right hand; 15:48 Follow up: Response: No adverse reaction; IV Status: Completed infusion; IV Intake: kc6 500ml 14:48 Drug: Ondansetron IVP 4 mg IVP once; over 2 minutes Route: IVP; Site: right hand; kc6 15:15 Follow up: Response: No adverse reaction; Nausea is decreased kc6 Disposition Summary: 08/17/24 15:40 Discharge Ordered Notes: Location: Home rt Problem: an acute exacerbation rt Symptoms: have improved rt Condition: Stable rt Diagnosis - Right flank pain rt Followup: rt - With: Private Physician - When: 2 - 3 days - Reason: Discharge Instructions: - Discharge Summary Sheet rt - Flank Pain, Adult rt Forms: - Medication Reconciliation Form rt - Antibiotic Education rt - Prescription Opioid Use rt - Patient Portal Instructions rt - Leadership Thank You Letter rt Signatures: Dispatcher [employer] Vivian Salazar Kaitlyn, RN RN [email or web address] Anna Castellon RN RN ko1 Aleks Solis MD MD rt Corrections: (The following items were deleted from the chart) 12:48 12:48 Allergies: Morphine; ko1 ko1
[2024-08-17 15:52] VITALS: TEMP 97.4
[2024-08-17 15:53] VITALS: BP 119/82; O2SAT 95
== END 2024-08-17 15:49 | disposition home or self-care (01) ==
LOC: ER 12:31
DX: R10.31 Right lower quadrant pain (principal); Z87.442 Personal history of urinary calculi
CPT/HCPCS: 96361; 85025; 81001; 36415; 81025; 80053; 96375; 96374; 99284; J1171; J2405; J7030

== ENCOUNTER 2024-08-29 23:05 | Emergency (ER) | payer BC ==
--- OUTSIDE RECORDS SUMMARY | 2024-08-29 23:08 | XMS REPORT | Clinical Summary ---
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 Gender Identity Not on file Sexual Orientation Not on file 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 Not on file Not on file Obstetrics History Plan of Treatment Health Maintenance Due Date Last Done Comments COVID-19 Vaccine ( - 2023-2 5 season) 2024 Influenza Vaccine [...] 1:48 PM 09/23/2018 6:55 PM Care Teams Auricular Acupuncturist Relationship Specialty Start Date End Date Keila Valentine MD [facility] [place] [address] [email or web address] PCP - General Surgical Oncology 08/26/18 Navi Arango FNP [address] [place] [address] PCP - External Primary Care Provider Family Practice 09/08/18 Nuria Sahu MD [facility] [place] [address] [email or web address] Consulting Physician Dermatology 10/20/18
--- NOTE | 2024-08-29 23:23 | ER ---
Nurse's Notes [facility] Name: Hong Pace Age: 39 yrs Sex: Female : 1985 Arrival Date: 08/29/2024 Time: 23:05 Bed 18 Private MD: Diagnosis: Abdominal pain Presentation: 08/29 23:10 Chief complaint: Patient states: RIGHT LOWER QUADRANT PAIN, NAUSEA, AND VOMITING. ha1 23:10 Coronavirus screen: Client denies travel out of the [place] in the last 14 days. Ebola ha1 Screen: No symptoms or risks identified at this time. Initial Sepsis Screen: Does the patient meet any 2 criteria? No. Patient's initial sepsis screen is negative. Does the patient have a suspected source of infection? No. Patient's initial sepsis screen is negative. Risk Assessment: Do you want to hurt yourself or someone else? Patient reports no desire to harm self or others. Onset of symptoms was August 29, 2024. 23:10 Method Of Arrival: Ambulatory ha1 23:10 Acuity: [place] 3 ha1 Triage Assessment: 23:10 General: Appears uncomfortable, Behavior is calm, cooperative. Pain: Complains of pain ha1 in right lower quadrant Pain currently is 8 out of 10 on a pain scale. Quality of pain is described as aching. Neuro: Level of Consciousness is awake, alert, obeys commands, Oriented to person, place, time, situation. Cardiovascular: Capillary refill < 3 seconds Patient's skin is warm and dry. Respiratory: Airway is patent Respiratory effort is even, unlabored, Respiratory pattern is regular, symmetrical. GI: Abdomen is round non-distended, obese, Bowel sounds present X 4 quads. Reports lower abdominal pain, nausea, vomiting. : No signs and/or symptoms were reported regarding the genitourinary system. Derm: Skin is pink, warm \\T\\ dry. Musculoskeletal: Circulation, motion, and sensation intact. Range of motion: intact in all extremities. Historical: - Allergies: 23:10 Reglan; ha1 23:10 Toradol; ha1 - PMHx: 23:10 Endometriosis of vagina; Hypothyroidism; kdiney stones (melanoma); melanoma; ha1 - PSHx: 23:10 Appendectomy; section; Cholecystectomy; hysterectomy; Multiple abdominal ha1 surgeries; Ovary removal; Thyroidectomy; - Immunization history:: Adult Immunizations up to date. - Infectious Disease History:: Denies. - Social history:: Smoking status: Patient reports the use of cigarette tobacco products, smokes one-half pack cigarettes per day. Screenin:10 [facility] ED Fall Risk Assessment (Adult) History of falling in the last 3 months, ha1 including since admission No falls in past 3 months (0 pts) Confusion or Disorientation No (0 pts) Intoxicated or Sedated No (0 pts) Impaired Gait No (0 pts) Mobility Assist Device Used No (0 pt) Altered Elimination No (0 pt) Score/Fall Risk Level 0 - 2 = Low Risk Oriented to surroundings, Maintained a safe environment, Hourly rounding (assess needs \\T\\ fall precautionary measures) done. Abuse screen: Denies threats or abuse. Denies injuries from another. Nutritional screening: No deficits noted. Tuberculosis screening: No symptoms or risk factors identified. Assessment: 23:24 Reassessment: REQUESTING PAIN MEDICATION. DR. ALMODOVAR EXPLAINED THAT NO NARCOTIC 1 MEDICATION WILL BE GIVEN TODAY. PATIENT STATES" IF YOU DON'T GIVE ME NARCOTICS THAN I AM LEAVING." PATIENT REFUSING TO CONTINUE WITH PLAN OF CARE. 23:27 Reassessment: PATIENT WALKING OUT OF ROOM. ha1 Vital Signs: 23:10 BP 119 / 89; Pulse 100; Resp 18 S; Temp 97.2(T); Pulse Ox 100% on R/A; Weight 90.72 kg; ha1 Height 5 ft. 4 in. ; 23:10 Body Mass Index 34.33 (90.72 kg, 162.56 cm) ha1 ED Course: 23:09 Patient arrived in ED. gm2 23:10 Patient has correct armband on for positive identification. Placed in gown. Bed in low ha1 position. Call light in reach. Side rails up X 1. 23:10 Provided Education on: PLAN OF CARE . ha1 23:10 Arm band placed on right wrist. ha1 23:12 Soledad Almodovar MD is Attending Physician. sp3 23:19 Triage completed. ha1 23:27 No provider procedures requiring assistance completed. Patient did not have IV access ha1 during this emergency room visit. Administered Medications: No medications were administered Medication: 23:28 VIS not applicable for this client. ha1 Outcome: 23:22 Discharge ordered by . sp3 23:27 Discharged to home ambulatory, ha1 23:27 Condition: stable 23:27 Discharge instructions given to patient, Instructed on NEED TO CONTINUE WITH PLAN OF CARE Demonstrated understanding of instructions, 23:28 Patient left the ED. ha1 Signatures: Soledad Almodovar MD MD sp3 Rachel Valencia RN RN ha1 Juana Ordoñez 2 Ross Sharma RN RN ay Corrections: (The following items were deleted from the chart) 35 23:12 General: Appears in no apparent distress. Behavior is calm, cooperative, ay ay 23:12 Pain: Complains of pain in right lower quadrant ay ay 23:12 Neuro: Level of Consciousness is awake, alert, obeys commands, Oriented to ay person, place, time, ay 23:12 Cardiovascular: Denies chest pain, ay ay 23:12 Respiratory: Airway is patent Respiratory effort is even, unlabored, Respiratory ay pattern is regular, symmetrical, ay 23:12 GI: Abd is soft X 4 quads Abdomen is tender to palpation in right lower quadrant ay Reports nausea, ay 23:12 : No signs and/or symptoms were reported regarding the genitourinary system. ay ay
--- NOTE | 2024-08-29 23:23 | EDPHYS ---
Physician Documentation [facility] Name: Hong Pace Age: 39 yrs Sex: Female : 1985 Arrival Date: 08/29/2024 Time: 23:05 Bed 18 Private MD: ED Physician Soledad Almodovar HPI: 08/29 23:20 This 39 yrs old Female presents to ER via Ambulatory with complaints of Abdominal Pain. sp3 23:20 39-year-old female with chronic abdominal pain presents with recurrent abdominal pain. sp3 No significant changes. She denies any fever, injury, vomiting, diarrhea or any other signs or symptoms on ROS at this time.. Historical: - Allergies: 23:10 Reglan; ha1 23:10 Toradol; ha1 - PMHx: 23:10 Endometriosis of vagina; Hypothyroidism; kdiney stones (melanoma); melanoma; ha1 - PSHx: 23:10 Appendectomy; section; Cholecystectomy; hysterectomy; Multiple abdominal ha1 surgeries; Ovary removal; Thyroidectomy; - Immunization history:: Adult Immunizations up to date. - Infectious Disease History:: Denies. - Social history:: Smoking status: Patient reports the use of cigarette tobacco products, smokes one-half pack cigarettes per day. ROS: 23:21 Constitutional: Negative for fever, chills, and weight loss, Eyes: Negative for injury, sp3 pain, redness, and discharge, Neck: Negative for injury, pain, and swelling, Cardiovascular: Negative for chest pain, palpitations, and edema, Respiratory: Negative for shortness of breath, cough, wheezing, and pleuritic chest pain, Back: Negative for injury and pain, MS/Extremity: Negative for injury and deformity, Skin: Negative for injury, rash, and discoloration, Neuro: Negative for headache, weakness, numbness, tingling, and seizure, Psych: Negative for depression, anxiety, suicide ideation, homicidal ideation, and hallucinations, Allergy/Immunology: Negative for hives, rash, and allergies, Endocrine: Negative for neck swelling, polydipsia, polyuria, polyphagia, and marked weight changes, Hematologic/Lymphatic: Negative for swollen nodes, abnormal bleeding, and unusual bruising, 23:21 All other systems are negative, Exam: 23:21 Constitutional: This is a well developed, well nourished patient who is awake, alert, sp3 and in no acute distress. Head/Face: Normocephalic, atraumatic. Neck: Trachea midline, no thyromegaly or masses palpated, and no cervical lymphadenopathy. Supple, full range of motion without nuchal rigidity, or vertebral point tenderness. No Meningismus. Chest/axilla: Normal chest wall appearance and motion. Nontender with no deformity. No lesions are appreciated. Cardiovascular: Regular rate and rhythm with a normal S1 and S2. No gallops, murmurs, or rubs. Normal PMI, no JVD. No pulse deficits. Respiratory: Lungs have equal breath sounds bilaterally, clear to auscultation and percussion. No rales, rhonchi or wheezes noted. No increased work of breathing, no retractions or nasal flaring. Back: No spinal tenderness. No costovertebral tenderness. Full range of motion. 23:21 Abdomen/GI: Mild pain diffuse abdomen and right lower quadrant. Pain out of proportion to exam., Vital Signs: 23:10 BP 119 / 89; Pulse 100; Resp 18 S; Temp 97.2(T); Pulse Ox 100% on R/A; Weight 90.72 kg; ha1 Height 5 ft. 4 in. ; 23:10 Body Mass Index 34.33 (90.72 kg, 162.56 cm) ha1 MDM: 23:12 Medical Screening Exam initiated sp3 23:21 Data reviewed: vital signs, nurses notes. ED course: Chronic abdominal pain. Patient sp3 offered ketorolac but she states she is allergic. When told we do not give narcotics for chronic abdominal pain patient became upset and now wants to leave. I believe she is exhibiting drug-seeking behavior. Patient will be discharged at this time.. Administered Medications: No medications were administered Disposition Summary: 08/29/24 23:22 Discharge Ordered Notes: Location: Home sp3 Condition: Stable sp3 Diagnosis - Abdominal pain sp3 Followup: sp3 - With: Private Physician - When: Upon discharge from the Emergency Department - Reason: Continuance of care Discharge Instructions: - Discharge Summary Sheet sp3 - Chronic Pain, Adult sp3 Forms: - Medication Reconciliation Form sp3 - Antibiotic Education sp3 - Prescription Opioid Use sp3 - Patient Portal Instructions sp3 - Leadership Thank You Letter sp3 Signatures: Dispatcher [employer] EDMS Soledad Almodovar, MD MD sp3 Rachel Valencia, RN RN ha1
[2024-08-29 23:35] VITALS: BP 119/89; TEMP 97.2; O2SAT 100
== END 2024-08-29 23:28 | disposition home or self-care (01) ==
LOC: ER 23:05
DX: R10.31 Right lower quadrant pain (principal); Z87.442 Personal history of urinary calculi; F17.210 Nicotine dependence, cigarettes, uncomplicated
CPT/HCPCS: 99282

== ENCOUNTER 2024-09-06 21:45 | Emergency (ER) | payer BC ==
--- OUTSIDE RECORDS SUMMARY | 2024-09-06 21:48 | XMS REPORT | Clinical Summary ---
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
--- NOTE | 2024-09-06 22:28 | EDPHYS ---
Physician Documentation [facility] Name: Hong Pace Age: 39 yrs Sex: Female : 1985 Arrival Date: 09/06/2024 Time: 21:45 Bed 13 Private MD: Eben Valerio ED Physician Aleks Solis HPI: 09/06 22:59 This 39 yrs old Female presents to ER via Ambulatory with complaints of Low Back Pain, rt Abdominal Pain. 22:59 Patient with reported history of kidney stones presents to the ED with right lower rt quadrant pain seems consistent previous episodes of kidney stone. She is well-known to this emergency department. She denies other acute complaints at this time, symptoms are moderate in severity, no other aggravating alleviating factors.. SERVER: 22:38 LMP 08/31/2024, unknown kj2 Historical: - Allergies: 22:18 Reglan; kj2 22:18 Toradol; kj2 - PMHx: 22:18 Endometriosis of vagina; Hypothyroidism; kdiney stones (melanoma); melanoma; kj2 - PSHx: 22:18 Appendectomy; section; Cholecystectomy; hysterectomy; Multiple abdominal kj2 surgeries; Ovary removal; Thyroidectomy; - Immunization history:: Adult Immunizations unknown. - Infectious Disease History:: Denies. - Social history:: Smoking status: unknown. - Family history:: not pertinent. ROS: 22:59 Constitutional: Negative for fever, chills, and weight loss, Cardiovascular: Negative rt for chest pain, palpitations, and edema, Respiratory: Negative for shortness of breath, cough, wheezing, and pleuritic chest pain, MS/Extremity: Negative for injury and deformity, Skin: Negative for injury, rash, and discoloration, Neuro: Negative for headache, weakness, numbness, tingling, and seizure, 22:59 Abdomen/GI: Positive for abdominal pain, nausea, Exam: 22:59 Constitutional: This is a well developed, well nourished patient who is awake, alert, rt and in no acute distress. Head/Face: Normocephalic, atraumatic. Chest/axilla: Normal chest wall appearance and motion. Nontender with no deformity. No lesions are appreciated. Cardiovascular: Regular rate and rhythm with a normal S1 and S2. No gallops, murmurs, or rubs. Normal PMI, no JVD. No pulse deficits. Respiratory: Lungs have equal breath sounds bilaterally, clear to auscultation and percussion. No rales, rhonchi or wheezes noted. No increased work of breathing, no retractions or nasal flaring. Abdomen/GI: Soft, non-tender, with normal bowel sounds. No distension or tympany. No guarding or rebound. No evidence of tenderness throughout. Skin: Warm, dry with normal turgor. Normal color with no rashes, no lesions, and no evidence of cellulitis. MS/ Extremity: Pulses equal, no cyanosis. Neurovascular intact. Full, normal range of motion. Vital Signs: 22:00 BP 141 / 93; Pulse 83; Resp 18; Temp 98.4; Pulse Ox 100% on R/A; Weight 90.72 kg; kj2 Height 5 ft. 4 in. ; 22:25 BP 138 / 86; Pulse 84; Resp 20; Pulse Ox 100% on R/A; kj2 22:00 Body Mass Index 34.33 (90.72 kg, 162.56 cm) kj2 MDM: 22:18 Medical Screening Exam initiated rt 22:59 Differential diagnosis: Chronic abdominal pain, kidney stones. Data reviewed: vital rt signs, nurses notes. ED course: Patient well-known to this emergency department, frequent visits requesting pain medications. I offered patient alternatives to opioid pain medications to include IV lidocaine, patient she agreed, however, she left without informing staff before any workup or medicines could be given.. Administered Medications: 22:39 Not Given (Patient Refused): [id number] mg PO once kj2 22:40 Not Given (Patient Refused): codpopstluck46.5 mg IVP once kj2 22:40 Not Given (Patient Refused): lidocaine 100 mg IVP once kj2 22:40 Not Given (Patient Refused): magnesium sulfate1 grams IVPB once over 1 hrs kj2 Disposition Summary: 09/06/24 22:27 Discharge Ordered Notes: Location: Home rt Problem: chronic rt Symptoms: are unchanged rt Condition: Stable rt Diagnosis - Abdominal pain, unspecified rt Followup: rt - With: Private Physician - When: 2 - 3 days - Reason: Forms: - Medication Reconciliation Form rt - Antibiotic Education rt - Prescription Opioid Use rt - Patient Portal Instructions rt - Leadership Thank You Letter rt Signatures: Dispatcher [employer] EDMS Aleks Solis MD MD rt Gloria Parnell RN RN kj2 Corrections: (The following items were deleted from the chart) : CBC+H.LAB.BRZ ordered. EDMS EDMS 22: COMPREHENSIVE METABOLIC PANEL+C.LAB.BRZ ordered. EDMS EDMS : 22: Urinalysis W/Microscopic+U.LAB.BRZ ordered. EDMS EDMS
--- NOTE | 2024-09-06 22:28 | ER ---
Nurse's Notes [facility] Tariq Name: Hong Pace Age: 39 yrs Sex: Female : 1985 Arrival Date: 09/06/2024 Time: 21:45 Bed 13 Private MD: Eben Valerio Diagnosis: Abdominal pain, unspecified Presentation: 09/06 22:00 Chief complaint: Patient states: lower right abdomen pain. Coronavirus screen: Client kj2 denies travel out of the [place] in the last 14 days. Ebola Screen: No symptoms or risks identified at this time. Initial Sepsis Screen: Does the patient meet any 2 criteria? No. Patient's initial sepsis screen is negative. Does the patient have a suspected source of infection? No. Patient's initial sepsis screen is negative. Risk Assessment: Do you want to hurt yourself or someone else? Patient reports no desire to harm self or others. Onset of symptoms was September 06, 2024. 22:00 Method Of Arrival: Ambulatory kj2 22:00 Acuity: [place] 3 kj2 Triage Assessment: 22:36 General: Appears in no apparent distress. Behavior is calm, cooperative. 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 - Infectious Disease History:: Denies. - Social history:: Smoking status: unknown. - Family history:: not pertinent. Screenin:00 [facility] ED Fall Risk Assessment (Adult) History of falling in the last 3 months, kj2 including since admission No falls in past 3 months (0 pts) Confusion or Disorientation No (0 pts) Intoxicated or Sedated No (0 pts) Impaired Gait No (0 pts) Mobility Assist Device Used No (0 pt) Altered Elimination No (0 pt) Score/Fall Risk Level 0 - 2 = Low Risk Maintained a safe environment, Hourly rounding (assess needs \T\ fall precautionary measures) done. Abuse screen: Denies threats or abuse. Denies injuries from another. Nutritional screening: No deficits noted. Tuberculosis screening: No symptoms or risk factors identified. Assessment: 22:00 General: see triage assessment. Pain: Complains of pain in abdomen Pain currently is 8 kj2 out of 10 on a pain scale. 22:10 Reassessment: patient notified by MD she will not receive narcotics as apart of pain kj2 regimen. GI: Bowel sounds present X 4 quads. Abd is non tender X 4 quads. 22:30 Reassessment: patient left before signing. kj2 Vital Signs: 22:00 BP 141 / 93; Pulse 83; Resp 18; Temp 98.4; Pulse Ox 100% on R/A; Weight 90.72 kg; kj2 Height 5 ft. 4 in. ; 22:25 BP 138 / 86; Pulse 84; Resp 20; Pulse Ox 100% on R/A; kj2 22:00 Body Mass Index 34.33 (90.72 kg, 162.56 cm) kj2 ED Course: 21:48 Patient arrived in ED. gm2 21:48 Eben Valerio is Private Physician. gm2 21:48 Aleks Solis MD is Attending Physician. rt 22:00 Patient has correct armband on for positive identification. Provided Education on: call kj2 light. 22:00 Arm band placed on Patient placed in an exam room. kj2 22:02 Gloria Parnell, RN is Primary Nurse. kj2 22:18 Triage completed. kj2 22:36 No provider procedures requiring assistance completed. Patient did not have IV access kj2 during this emergency room visit. Administered Medications: 22:39 Not Given (Patient Refused): [id number] mg PO once kj2 22:40 Not Given (Patient Refused): ziqhofhhmivc20.5 mg IVP once kj2 22:40 Not Given (Patient Refused): lidocaine 100 mg IVP once kj2 22:40 Not Given (Patient Refused): magnesium sulfate1 grams IVPB once over 1 hrs kj2 Medication: 22:00 VIS not applicable for this client. kj2 Outcome: 22:27 Discharge ordered by . rt 22:37 Discharged to home ambulatory, kj2 22:37 Discharged to home 22:37 Condition: stable 22:47 Eloped kj2 22:50 Patient left the ED. kj2 Signatures: Aleks Solis MD MD rt [place] Ordoñez gm2 Gloria Parnell, RN RN kj2 Corrections: (The following items were deleted from the chart) 22:50 22:37 Discharge instructions given to patient, Instructed on discharge instructions, kj2 follow up and referral plans. kj2
[2024-09-06 23:20] VITALS: TEMP 98.4; O2SAT 100
[2024-09-06 23:26] VITALS: BP 138/86
== END 2024-09-06 22:50 | disposition home or self-care (01) ==
LOC: ER 21:45
DX: R10.31 Right lower quadrant pain (principal); R11.0 Nausea; Z87.442 Personal history of urinary calculi
CPT/HCPCS: 99281